=== PATIENT | male | born 1970 | race Caucasian/White ===

== ENCOUNTER 2020-02-19 09:15 | Emergency (ER) | payer OTHER, SELFPAY ==
[2020-02-19 09:20] VITALS: BP 146/77; PULSE 100; RESP 20; TEMP 36.6; O2SAT 99
--- NOTE | 2020-02-19 09:36 | WPDEDEXPGENP ---
HPI - General Ped General Chief complaint: Recheck/Abnormal Lab/Rx Stated complaint: Bactermia Time Seen by Provider: 02/19/20 09:36 Source: patient Mode of arrival: ambulatory Limitations: no limitations History of Present Illness HPI narrative: [age] year old man with a history of diabetes mellitus, liver failure, GI bleeds comes in today for IV antibiotics. Patient was admitted to a hospital in [facility] on Feb 13 for positive blood cultures and fever. Patient was treated in the hospital until yesterday when he was discharged. Patient is to have 2 g ceftriaxone IV daily for the next 28 days and his primary care physician is not available today (Thursday) to set up outpatient therapy. Patient states that he feels well, has a good appetite, denies fever, nausea, vomiting, weakness and shortness of breath. Onset (ago): day(s) Associated symptoms: denies other symptoms Related Data Home Medications Medication Instructions Recorded Confirmed Rocephin 2 g IV DAILY 02/19/20 02/19/20 acetaminophen-codeine 1 tablet Q8-10H PRN 02/19/20 02/19/20 albuterol sulfate 2 puff INHALATION Q8-10H PRN 02/19/20 02/19/20 cefdinir 300 mg PO BID 02/19/20 02/19/20 hydrochlorothiazide 25 mg PO DAILY 02/19/20 02/19/20 insulin regular hum U-500 conc 30 - 50 unit SUBCUT TIDWMEAL 02/19/20 02/19/20 [Humulin R U-500 (Conc) Kwikpen] lactulose [Enulose] 15 ml PO QID 02/19/20 02/19/20 Allergies Allergy/AdvReac Type Severity Reaction Status Date / Time aztreonam [Azactam] Allergy Intermediate Verified 10/07/19 10:29 ciprofloxacin [Cipro] Allergy Intermediate Verified 10/07/19 10:29 esomeprazole [Nexium] Allergy Intermediate Verified 10/07/19 10:29 octreotide Allergy Intermediate Verified 10/07/19 10:29 sulfanilamide Allergy Intermediate Verified 10/07/19 10:29 erythromycin base Allergy Unknown Unverified 10/07/19 10:29 Penicillins Allergy Unknown Unverified 10/07/19 10:29 Sulfa (Sulfonamide Allergy Unknown Unverified 10/07/19 10:29 Antibiotics) IVP dye Allergy Intermediate Uncoded 10/07/19 10:29 Contrast Media Allergy Unknown Uncoded 10/07/19 10:29 Pediatric Review of Systems : Constitutional: Denies fever and chills ENT: Denies sore throat and rhinorrhea Cardiovascular: Denies chest pain and dyspnea on exertion Respiratory: Denies cough and dyspnea Gastrointestinal: Denies abdominal pain, nausea and vomiting Genitourinary: Denies dysuria Integumentary: Denies rash and lesions Neurological: Denies weakness and difficulty walking Allergic/Immunologic: Denies facial swelling and urticaria PMFSH Past Medical History Medical History (Updated 02/19/20 @ 09:50 by Lukas Moreno MD) Chronic back pain Diabetes mellitus type 2 in obese GERD (gastroesophageal reflux disease) GI bleeding Hepatic encephalopathy Liver failure Varices, esophageal Surgical History Surgical History (Updated 02/19/20 @ 09:48 by Lukas Moreno MD) S/P TIPS (transjugular intrahepatic portosystemic shunt) Social History Social History (Updated 02/19/20 @ 09:48 by Lukas Moreno MD) Smoking status: Former smoker Alcohol intake: never Substance use: never Living arrangements: with family Pediatric Exam General: Limitations: no limitations General appearance: well-appearing and active Head: Head exam: normocephalic and atraumatic Eye: Eye exam: Present normal appearance, PERRL and EOMI ENT: ENT exam: normal oropharynx, mucous membranes moist, TM's normal bilaterally and normal external ear exam Respiratory: Respiratory exam: Present normal lung sounds bilaterally; Absent respiratory distress, wheezes and stridor Cardiovascular: Cardiovascular exam: Present regular rate, normal rhythm and normal heart sounds Extremities Exam: Extremities exam: Present normal inspection and full ROM; Absent tenderness and joint swelling Neurological Exam: Neurological exam: Present oriented X3, CN II-XII intact and normal
== END 2020-02-19 10:45 | disposition home or self-care (01) ==
PROVIDERS: Emergency Provider Emergency Medicine; PCP Physician Assistant
DX: R78.81 Bacteremia (principal)
CPT/HCPCS: 96365; 99282; 99284; J0696

== ENCOUNTER 2020-02-20 09:23 | Emergency (ER) | payer OTHER, SELFPAY ==
--- NOTE | 2020-02-20 09:31 | ED.RECABL ---
HPI - Recheck/Abnormal Lab/Rx General Chief Complaint: Recheck/Abnormal Lab/Rx Stated Complaint: INFECTION Time Seen by Provider: 02/20/20 09:32 Source: patient History of Present Illness HPI narrative: Patient was diagnosed at another facility with bacteremia. Suspected that he may have a vegetation on a heart valve. He had positive blood cultures x2. He was evaluated by Infectious Disease. It was advised that he get 2 g of Rocephin IV daily for 28 days. His insurance has not approved the standing order for daily antibiotics yet so he presents here for continued IV therapy. He has no other complaints. complaint: needs IV antibiotics Initial visit (ago): day(s) (3) Initial visit for: other (Bacteremia) Returns today for: needs IV antibiotics Symptoms since prior visit: no new symptoms Context: planned re-check Associated symptoms: none Related Data Home Medications Medication Instructions Recorded Confirmed Rocephin 2 g IV DAILY 02/19/20 02/19/20 acetaminophen-codeine 1 tablet Q8-10H PRN 02/19/20 02/19/20 albuterol sulfate 2 puff INHALATION Q8-10H PRN 02/19/20 02/19/20 cefdinir 300 mg PO BID 02/19/20 02/19/20 hydrochlorothiazide 25 mg PO DAILY 02/19/20 02/19/20 insulin regular hum U-500 conc 30 - 50 unit SUBCUT TIDWMEAL 02/19/20 02/19/20 [Humulin R U-500 (Conc) Kwikpen] lactulose [Enulose] 15 ml PO QID 02/19/20 02/19/20 Allergies Allergy/AdvReac Type Severity Reaction Status Date / Time aztreonam [Azactam] Allergy Intermediate Verified 10/07/19 10:29 ciprofloxacin [Cipro] Allergy Intermediate Verified 10/07/19 10:29 esomeprazole [Nexium] Allergy Intermediate Verified 10/07/19 10:29 octreotide Allergy Intermediate Verified 10/07/19 10:29 sulfanilamide Allergy Intermediate Verified 10/07/19 10:29 erythromycin base Allergy Unknown Unverified 10/07/19 10:29 Penicillins Allergy Unknown Unverified 10/07/19 10:29 Sulfa (Sulfonamide Allergy Unknown Unverified 10/07/19 10:29 Antibiotics) IVP dye Allergy Intermediate Uncoded 10/07/19 10:29 Contrast Media Allergy Unknown Uncoded 10/07/19 10:29 Review of Systems Review of Systems: All systems reviewed & are unremarkable except as noted in HPI and below PMFSH Past Medical History Medical History Chronic back pain Diabetes mellitus type 2 in obese GERD (gastroesophageal reflux disease) GI bleeding Hepatic encephalopathy Liver failure Varices, esophageal Surgical History Surgical History S/P TIPS (transjugular intrahepatic portosystemic shunt) Social History Social History Smoking status: Former smoker Alcohol intake: never Substance use: never Exam Const: General: healthy appearing, no acute distress and alert Nutritional Appearance: well nourished Orientation/consciousness: patient oriented x3 HENMT: Head: normal to inspection Ears: external ears normal Eyes: Conjunctivae: conjunctivae normal Pupils: Equal, round and reactive pupils present EOM: EOMs intact bilaterally Neck: Neck: normal visual inspection Resp: Effort & Inspection: normal respiratory effort Auscultation: clear to auscultation bilaterally Cardio: Rate: regular rate Rhythm: regular rhythm GI: GI Palp: Yes Soft to palpation and No Tenderness to palpation present (GI) Auscultation: normal bowel sounds Back/Spine/Pelvis: Cervical Spine: cervical ROM normal Thoracic/Lumbar Spine: thoraco-lumbar ROM normal Skin: General skin exam: normal color Rashes: no rashes Neuro: General: patient oriented x3, moves all extremities, no meningeal signs and no focal motor deficits Speech: normal speech Gait exam (Neuro): Normal gait present Extrem: General: normal to inspection and no clubbing, cyanosis or edema Psych: Appearance: grossly normal and well kempt Mental Status: mental status grossly normal Affect: no
[2020-02-20 09:40] VITALS: BP 176/94; PULSE 94; RESP 20; TEMP 36.2; O2SAT 98
== END 2020-02-20 10:42 | disposition home or self-care (01) ==
PROVIDERS: Emergency Provider Emergency Medicine; PCP Physician Assistant
DX: R78.81 Bacteremia (principal)
CPT/HCPCS: 96365; 99283; 99284; J0696

== ENCOUNTER 2020-02-20 10:53 | Outpatient (CLI) | payer OTHER, SELFPAY ==
[2020-02-20 11:07] LABS: Hematocrit 31.7 % (40.0-54.0); Hemoglobin 9.1 g/dL (14.0-18.0); Mean Corpuscular HGB Conc 28.7 g/dL (32.0-36.0); Mean Corpuscular Hemoglobin 21.7 pg (27.0-31.0); Mean Corpuscular Volume 75.7 fL (78.0-102.0); Mean Platelet Volume 10.9 fl (8.7-11.0); Platelet Count Result 79 K/mm3 (150-420); Red Blood Count 4.19 M/mm3 (4.70-6.10); Red Cell Distribution Width 16.4 % (11.6-14.4); White Blood Count 2.6 K/mm3 (4.8-10.8)
[2020-02-20 11:57] LABS: Band Neutrophils Percent 0 % (0-6); Basophils Percent Manual 0 % (0-1); Eosinophils Absolute Manual 0.07 K/mm3 (0.02-0.5); Eosinophils Percent Manual 3 % (1-6); Immature Platelet Fraction Pct 6.8 % (1.0-7.0); Lymphocytes Absolute Manual 0.36 K/mm3 (1.1-4.5); Lymphocytes Percent Manual 14 % (18-44); Monocytes Absolute Manual 0.26 K/mm3 (0.1-0.90); Monocytes Percent Manual 10 % (3-9); Neutrophils Absolute Manual 1.89 K/mm3 (1.3-6.7); Neutrophils Percent Manual 73 % (46-73); Total Cells Counted 100
[2020-02-20 11:58] LABS: Platelet Estimate Decreased (Adequate)
[2020-02-20 22:56] LABS: SARS-CoV-2 RNA PCR Negative
== END 2020-02-20 10:54 | disposition home or self-care (01) ==
LOC: CHSLAB 10:55
PROVIDERS: PCP Physician Assistant; Visit Provider Physician Assistant
DX: B34.9 Viral infection, unspecified (principal); Z20.828 Contact with and (suspected) exposure to other viral communicable diseases
CPT/HCPCS: 36415; 85025; 85055; 87635; C9803; U0003

== ENCOUNTER 2020-03-08 08:54 | Outpatient (RCR) | payer OTHER, SELFPAY ==
[2020-02-21 09:46] VITALS: BP 129/79; PULSE 68; RESP 16; TEMP 36.1; O2SAT 98
--- NOTE | 2020-02-21 10:27 | PC.NURSE ---
Patient here for daily Ceftriaxone 2 gm IVPB for next 26 days. Patient has PICC line in right upper. Education on medication and process of recurrent account and coming up here daily for. Patient has no concerns. Ceftriaxone administered. Tolerated well. Picc line flushed. Will return tomorrow for another dose. Safe exit of hospital.
--- NOTE | 2020-02-22 11:24 | PC.NURSE ---
Patient here for daily Ceftriaxone 2 gm IV infusion. No concerns voiced. Infusion administered over 30 minutes. In MAR looks like over 1 hour, but was administered over 30 minutes see OP Charges. PICC line asystomatic of s/sx of infection. Patent. Flush per protocol. Safe exit of hospital. Will return tomorrow.
[2020-02-23] MEDS: HEPARIN SOD FLUSH 500 UNITS/5 ML SYRINGE IV PUSH (09:55)
[2020-02-25 09:35] VITALS: BP 129/70; PULSE 80; RESP 16; TEMP 36.3; O2SAT 96
[2020-02-25] MEDS: HEPARIN SOD FLUSH 500 UNITS/5 ML SYRINGE IV PUSH (10:07)
--- NOTE | 2020-02-25 10:12 | PC.NURSE ---
Patient here for daily IV Cerftriaxone infusion. Picc line patent. No concerns voiced at this time. Antibiotic administered. Tolerated well. Safe exit of hospital. Will return tomorrow same time.
--- NOTE | 2020-02-26 09:36 | PC.NURSE ---
Patient here for daily Ceftriaxone IV infusion. No concerns. Picc line and cap dressing change completed. Antibiotic administered. Tolerated well. Safe exit of hospital.
[2020-02-26] MEDS: HEPARIN SOD FLUSH 500 UNITS/5 ML SYRINGE IV PUSH (09:53)
--- NOTE | 2020-02-27 09:46 | PC.NURSE ---
Patient here for daily IV Ceftriaxone. No concerns voiced. Ceftriaxone administered. Tolerated well. Safe exit of hospital.
[2020-02-27] MEDS: HEPARIN SOD FLUSH 500 UNITS/5 ML SYRINGE IV PUSH (09:51)
[2020-02-28] MEDS: HEPARIN SOD FLUSH 500 UNITS/5 ML SYRINGE IV PUSH (09:20)
[2020-02-29] MEDS: HEPARIN SOD FLUSH 500 UNITS/5 ML SYRINGE IV PUSH (09:40)
--- NOTE | 2020-02-29 10:49 | PC.NURSE ---
Patient tolerated daily IV Ceftriaxone infusion. No concerns. Safe exit of hospital.
[2020-03-01 09:18] VITALS: BP 130/72; PULSE 68; RESP 14; TEMP 36.6; O2SAT 97
--- NOTE | 2020-03-01 09:18 | PC.NURSE ---
Patient here for daily Ceftriaxone IV infusion. Picc line dressing change completed to right upper arm picc. Site asystomatic of s/sx of infection. IV antibiotic administered. Tolerating well. No concerns voiced. Safe exit of hospital. Be back tomorrow a.m.
[2020-03-01] MEDS: HEPARIN SOD FLUSH 500 UNITS/5 ML SYRINGE IV PUSH (09:37)
[2020-03-02] MEDS: HEPARIN SOD FLUSH 500 UNITS/5 ML SYRINGE IV PUSH (09:28)
--- NOTE | 2020-03-02 09:56 | PC.NURSE ---
Tolerated daily Ceftriaxone IV infusion well today. NO concerns voiced. Safe exit of hospital. Be back tomorrow a.m.
[2020-03-03] MEDS: HEPARIN SOD FLUSH 500 UNITS/5 ML SYRINGE IV PUSH (09:50)
[2020-03-04] MEDS: HEPARIN SOD FLUSH 500 UNITS/5 ML SYRINGE IV PUSH (09:40)
--- NOTE | 2020-03-04 10:24 | PC.NURSE ---
0930 upper edge of drg has a fluid filled blister. he claims claims in past has reaction to tape products. encouraged to leave alone. area is less pink around blister. no other irritation noted. c/o that drg will not always stay in place. sleeve given yesterday will not stay up. encouraged to careful. no further c/o. maybe see about knee high panty hose and cut toes out to help hold in place. will return in am.
[2020-03-05] MEDS: HEPARIN SOD FLUSH 500 UNITS/5 ML SYRINGE IV PUSH (09:16)
--- NOTE | 2020-03-05 10:00 | PC.NURSE ---
PICC line dressing changed on thursday by sister who is a hospice nurse, declined changing it today
[2020-03-06] MEDS: HEPARIN SOD FLUSH 500 UNITS/5 ML SYRINGE IV PUSH (09:08)
[2020-03-07 08:40] LABS: Hematocrit 33.9 % (40.0-54.0); Hemoglobin 9.9 g/dL (14.0-18.0); Mean Corpuscular HGB Conc 29.2 g/dL (32.0-36.0); Mean Corpuscular Hemoglobin 21.5 pg (27.0-31.0); Mean Corpuscular Volume 73.5 fL (78.0-102.0); Mean Platelet Volume 10.6 fl (8.7-11.0); Platelet Count Result 102 K/mm3 (150-420); Red Blood Count 4.61 M/mm3 (4.70-6.10); Red Cell Distribution Width 15.6 % (11.6-14.4); White Blood Count 3.3 K/mm3 (4.8-10.8)
[2020-03-07] MEDS: HEPARIN SOD FLUSH 500 UNITS/5 ML SYRINGE IV PUSH (08:54)
--- NOTE | 2020-03-07 08:54 | PC.NURSE ---
Pt. here for ATB infusion. PICC line site flushed well, has good blood return. Dresing clean, dry and intact. IV ATB started per order. Pt. resting in chair, denies any needs.
[2020-03-07 09:10] LABS: Neutrophils Percent Manual 71 % (46-73); Total Cells Counted 100
[2020-03-07 09:11] LABS: Band Neutrophils Percent 0 % (0-6); Basophils Percent Manual 0 % (0-1); Eosinophils Absolute Manual 0.09 K/mm3 (0.02-0.5); Eosinophils Percent Manual 3 % (1-6); Lymphocytes Absolute Manual 0.46 K/mm3 (1.1-4.5); Lymphocytes Percent Manual 14 % (18-44); Monocytes Absolute Manual 0.39 K/mm3 (0.1-0.90); Monocytes Percent Manual 12 % (3-9); Neutrophils Absolute Manual 2.34 K/mm3 (1.3-6.7); Platelet Estimate Decreased (Adequate)
--- NOTE | 2020-03-07 09:20 | PC.NURSE ---
Patient tolerated IV Infusion well. PICC line flushed well. Pt. left ambulatory. Denies any questions at discharge.
[2020-03-07 09:27] LABS: Alanine Aminotransferase 42 U/L (16-63); Albumin Level 3.8 g/dL (3.4-5.0); Alkaline Phosphatase 69 U/L (46-116); Anion Gap 11 mmol/L (8-16); Aspartate Amino Transferase 31 U/L (15-37); Bilirubin,Total 0.8 mg/dL (0.00-1.00); Blood Urea Nitrogen 12 mg/dL (7-18); Calcium 9.2 mg/dL (8.5-10.1); Carbon Dioxide 29 mmol/L (21-32); Chloride 99 mmol/L (98-108); Estimated Glomerular Filt Rate > 60; Glucose 177 mg/dL (70-99); Osmolality Calculated 291 mOsm/kg (285-295); Potassium 3.9 mmol/L (3.5-5.1); Sodium 139 mmol/L (136-145); Total Protein 7.9 g/dL (6.4-8.2)
--- NOTE | 2020-03-08 08:55 | PC.NURSE ---
Pt to room 229 amb per self. A&Ox3. Has no complaints. Oriented to room. Call ortiz in reach, reminded to call with needs.
[2020-03-08] MEDS: HEPARIN SOD FLUSH 500 UNITS/5 ML SYRINGE IV PUSH (09:40)
--- NOTE | 2020-03-08 09:56 | PC.NURSE ---
PICC line dressing changed per protocol. site without redness, edema or drainage. Pt tolerated well. Discharged to home amb per self.
--- NOTE | 2020-03-09 12:39 | PC.NURSE ---
Patient did not come in for IV therapy today, called patient and reports saw his doctor yesterday and they discontinued the IV therapy, pharmacy notified.
== END 2020-05-21 23:59 | disposition home or self-care (01) ==
LOC: CHSTREATRM 08:54
PROVIDERS: PCP Physician Assistant; Visit Provider Physician Assistant
DX: R78.81 Bacteremia (principal)
CPT/HCPCS: 36415; 80053; 85025; 96365; J0696

== ENCOUNTER 2020-03-12 13:11 | Outpatient (CLI) | payer OTHER, SELFPAY | END 2020-03-12 13:12 | disposition home or self-care (01) | LOC: CHSTREATRM 13:16 | PROVIDERS: PCP Physician Assistant; Visit Provider Physician Assistant | DX: Z45.2 Encounter for adjustment and management of vascular access device (principal) | CPT/HCPCS: 99211; G0463 ==

== ENCOUNTER 2020-03-13 01:02 | Emergency (ER) | payer OTHER, SELFPAY ==
[2020-03-13 01:05] VITALS: BP 161/79; PULSE 103; RESP 20; TEMP 36.8; O2SAT 99
--- NOTE | 2020-03-13 01:13 | ED.GENADULT ---
HPI - General Adult General Chief complaint: Recheck/Abnormal Lab/Rx Stated complaint: Elevated Glucose Source: patient and RN notes reviewed Mode of arrival: ambulatory Limitations: no limitations History of Present Illness HPI narrative: patient began having frequent urination agitation. She decided to check his blood sugar and his machine just showed high . complaint: elevated blood sugar Onset (ago): hour(s) (2) Severity: severe Relieving factors: none Exacerbating factors: eating Associated symptoms: denies other symptoms Treatments prior to arrival: none Related Data Home Medications Medication Instructions Recorded Confirmed acetaminophen-codeine 1 tablet Q8-10H PRN 02/19/20 03/13/20 albuterol sulfate 2 puff INHALATION Q8-10H PRN 02/19/20 03/13/20 hydrochlorothiazide 25 mg PO DAILY 02/19/20 03/13/20 insulin regular hum U-500 conc 100 - 200 unit SUBCUT TIDWMEAL 02/19/20 02/19/20 [Humulin R U-500 (Conc) Kwikpen] Allergies Allergy/AdvReac Type Severity Reaction Status Date / Time aztreonam [Azactam] Allergy Intermediate Verified 10/07/19 10:29 ciprofloxacin [Cipro] Allergy Intermediate Verified 10/07/19 10:29 esomeprazole [Nexium] Allergy Intermediate Verified 10/07/19 10:29 octreotide Allergy Intermediate Verified 10/07/19 10:29 sulfanilamide Allergy Intermediate Verified 10/07/19 10:29 erythromycin base Allergy Unknown Unverified 10/07/19 10:29 Penicillins Allergy Unknown Unverified 10/07/19 10:29 Sulfa (Sulfonamide Allergy Unknown Unverified 10/07/19 10:29 Antibiotics) IVP dye Allergy Intermediate Uncoded 10/07/19 10:29 Contrast Media Allergy Unknown Uncoded 10/07/19 10:29 Review of Systems Review of Systems: All systems reviewed & are unremarkable except as noted in HPI and below PMFSH Past Medical History Medical History Chronic back pain Diabetes mellitus type 2 in obese GERD (gastroesophageal reflux disease) GI bleeding Hepatic encephalopathy Liver failure Varices, esophageal Surgical History Surgical History S/P TIPS (transjugular intrahepatic portosystemic shunt) Social History Social History Smoking status: Former smoker Alcohol intake: never Substance use: never Exam Const: General: healthy appearing and no acute distress Nutritional Appearance: well nourished and obese centrally obese Orientation/consciousness: patient oriented x3 HENMT: Head: normal to inspection Ears: external ears normal Eyes: Conjunctivae: conjunctivae normal Pupils: Equal, round and reactive pupils present EOM: EOMs intact bilaterally Neck: Neck: normal visual inspection Resp: Effort & Inspection: normal respiratory effort Auscultation: clear to auscultation bilaterally Cardio: Rate: regular rate Rhythm: regular rhythm GI: GI Palp: Yes Soft to palpation and No Tenderness to palpation present (GI) Auscultation: normal bowel sounds Back/Spine/Pelvis: Cervical Spine: cervical ROM normal Thoracic/Lumbar Spine: thoraco-lumbar ROM normal Skin: General skin exam: normal color Rashes: no rashes Neuro: General: patient oriented x3, moves all extremities and no focal motor deficits Speech: normal speech Gait exam (Neuro): Normal gait present Extrem: General: normal to inspection and no clubbing, cyanosis or edema Psych: Appearance: grossly normal and well kempt Mental Status: mental status grossly normal Affect: normal affect Attitude: cooperative Thought content: Yes Normal thought content present Course Course Emergency Course: patient feels much better after 20 units of regular insulin. He says his shaking has stopped and he feels content that his blood sugars down 402. Vital Signs Vital signs: Vital Signs Temperature 36.8 C 03/13/20 01:05 Pulse Rate 103 H 03/13/20 01:05 Respiratory Rate 20 03/13/20
[2020-03-13] MEDS: INSULIN HUMAN REGULAR (*BKC) 100 UNITS/ML 20 UNITS SUB-Q (01:26)
[2020-03-13 02:04] LABS: Glucose Point of Care > 450 (65-105)
[2020-03-13 02:32] LABS: Glucose Point of Care > 450 (65-105)
--- NOTE | 2020-03-13 02:32 | PC.NURSE ---
pt ambulated to bathroom, no complaints voiced at this time.
[2020-03-13 03:04] LABS: Glucose Point of Care 430 (65-105)
--- NOTE | 2020-03-13 03:26 | PC.NURSE ---
pt feeling alot better, pt states ready to go home. no shaking, no agitation. ready to go to bed.
[2020-03-13 03:27] VITALS: BP 161/71; PULSE 78; RESP 20; TEMP 36.8; O2SAT 98
[2020-03-13 03:27] LABS: Glucose Point of Care 402 (65-105)
== END 2020-03-13 03:30 | disposition home or self-care (01) ==
PROVIDERS: Emergency Provider Emergency Medicine; PCP Physician Assistant
DX: E11.65 Type 2 diabetes mellitus with hyperglycemia (principal)
CPT/HCPCS: 82948; 99282; 99283; J1815

== ENCOUNTER 2020-05-29 07:34 | Outpatient (CLI) | payer OTHER, SELFPAY ==
--- NOTE | ~2020-05-29 | CT_ITS ---
EXAMINATION: CT abdomen wo con DATE: 05/29/2020 08:49 INDICATION: Disorder of kidney and/or ureter. Right lower quadrant pain. TECHNIQUE: Computed tomography (CT) of the abdomen was performed without intravenous contrast. Automa manny exposure control and iterative reconstruction technique were employed. The dose-length product wa s 1608.08 mGy-cm. COMPARISON: 08/18/2018 FINDINGS: Mild atelectasis at the lingula and left lower lobe. Heart size is normal. No pericardial or pleural effusion. Mild bilateral gynecomastia. TIPS shunt in expected position. Liver is otherwise unremarkab le. Splenomegaly measuring 18.9 cm craniocaudally and paraesophageal varices consistent with portal v enous hypertension. A few splenic calcifications consistent with old granulomatous disease. A few tin y calcified gallstones at the dependent neck of the otherwise normal-appearing gallbladder with no ga llbladder wall thickening or pericholecystic inflammatory change to suggest acute cholecystitis. Panc reas, left kidney and bilateral adrenal glands are normal. A couple cysts in the right pelvic kidney the larger measuring 2 cm. The right kidney measures 11.4 cm in maximal length compared with 15.2 cm the left kidney. No urolithiasis or hydronephrosis on either the left or right. Bowels including appe ndix are normal. Bladder is normal. Right seminal vesicle is atrophic versus developmentally absent. No free intraperitoneal gas or fluid. No pathologically enlarged abdominal or pelvic lymphadenopathy. Mild scattered degenerative skeletal changes. There are bridging osteophytes at several levels in th e lower thoracic spine. IMPRESSION: 1. No acute intra-abdominal/pelvic process. Specifically normal appendix and no urolithiasis. 2. Cholelithiasis. 3. TIPS procedure with likely and paraesophageal varices suggesting portal venous hypertension. 4. Unchanged right-sided pelvic kidney which is slightly smaller than the left kidney. Reviewed, dictated and finalized at location B. GER APPOINTMENT IMPRESSION: 1. No acute intra-abdominal/pelvic process. Specifically normal appendix and no urolithiasis. 2. Cholelithiasis. 3. TIPS procedure with likely and paraesophageal varices suggesting portal veno us hypertension. 4. Unchanged right-sided pelvic kidney which is slightly smaller than the left kidney.
== END 2020-05-29 07:35 | disposition home or self-care (01) ==
LOC: CHSIMG 07:38
PROVIDERS: PCP Physician Assistant; Visit Provider Physician Assistant
DX: N28.89 Other specified disorders of kidney and ureter (principal)
CPT/HCPCS: 74150

== ENCOUNTER 2020-09-02 06:35 | Emergency (ER) | payer OTHER, SELFPAY ==
[2020-09-02 06:45] VITALS: BP 140/79; PULSE 105; RESP 20; TEMP 36.5; O2SAT 98
--- NOTE | 2020-09-02 07:10 | ED.MALEGU ---
HPI - Male Genitourinary General Chief complaint: Urogenital-Male Stated complaint: Lump Time Seen by Provider: 09/02/20 07:10 Source: patient Mode of arrival: ambulatory Limitations: no limitations History of Present Illness HPI Narrative: 49-year-old man with a history of type 2 diabetes comes in today complaining of a painful lesion on his right groin. Patient states he 1st noticed it yesterday and it looked like a small pimple. This morning it is a bigger and more tender. He has had no fever, nausea, vomiting or prior bacterial skin infections. he has certainly has an allergy to sulfa antibiotics but is not sure what sort of reaction. MD Complaint: other (Lump in groin) Onset (ago): day(s) (1) Duration: constant Location: right inguinal region Severity: mild Quality: sharp Relieving factors: none Exacerbating factors: palpation Associated symptoms: Reports denies other symptoms Related Data Home Medications Medication Instructions Recorded Confirmed acetaminophen-codeine 1 tablet Q8-10H PRN 02/19/20 09/02/20 albuterol sulfate 2 puff INHALATION Q8-10H PRN 02/19/20 09/02/20 hydrochlorothiazide 25 mg PO DAILY 02/19/20 09/02/20 insulin regular hum U-500 conc 100 - 200 unit SUBCUT TIDWMEAL 02/19/20 09/02/20 [Humulin R U-500 (Conc) Kwikpen] Allergies Allergy/AdvReac Type Severity Reaction Status Date / Time aztreonam [Azactam] Allergy Intermediate Verified 10/07/19 10:29 ciprofloxacin [Cipro] Allergy Intermediate Verified 10/07/19 10:29 esomeprazole [Nexium] Allergy Intermediate Verified 10/07/19 10:29 octreotide Allergy Intermediate Verified 10/07/19 10:29 sulfanilamide Allergy Intermediate Verified 10/07/19 10:29 erythromycin base Allergy Unknown Unverified 10/07/19 10:29 Penicillins Allergy Unknown Unverified 10/07/19 10:29 Sulfa (Sulfonamide Allergy Unknown Unverified 10/07/19 10:29 Antibiotics) IVP dye Allergy Intermediate Uncoded 10/07/19 10:29 Contrast Media Allergy Unknown Uncoded 10/07/19 10:29 Review of Systems Constitutional: Constitutional: Denies chills and Denies fever(s) Cardiovascular: Cardiovascular: Denies chest pain and Denies radiating jaw, neck or arm pain Respiratory: Respiratory: Denies cough and Denies dyspnea Gastrointestinal: Gastrointestinal: Denies abdominal pain, Denies nausea and Denies vomiting Genitourinary: Genitourinary: Reports as per HPI, Denies hematuria, Reports genital lesions, Denies dysuria and Denies urinary frequency Musculoskeletal: Musculoskeletal: Denies arthralgias and Denies joint swelling Integumentary/Breasts: Skin/Breast: Reports as per HPI, Denies pruritus, Reports erythema and Denies rash Neurologic: Denies vertigo, Denies dizziness and Denies syncope Hematologic/Lymphatic: Hematologic/Lymphatic: Denies easy bleeding and Denies easy bruising Allergic/Immunologic: Allergic/Immunologic: Denies lip swelling and Denies tongue swelling PMFSH Past Medical History Medical History Chronic back pain Diabetes mellitus type 2 in obese GERD (gastroesophageal reflux disease) GI bleeding Hepatic encephalopathy Liver failure Varices, esophageal Surgical History Surgical History S/P TIPS (transjugular intrahepatic portosystemic shunt) Social History Social History Smoking status: Former smoker Alcohol intake: never Substance use: never Exam Const: General: healthy appearing, no acute distress and alert Orientation/consciousness: patient oriented x3 Eyes: Conjunctivae: conjunctivae normal Pupils: Equal, round and reactive pupils present EOM: EOMs intact bilaterally Resp: Effort & Inspection: normal respiratory effort and not labored Auscultation: clear to auscultation bilaterally, no rales, no rhonchi and no wheezes Cardio: Rate: regular rate Rhythm: regular rhythm
[2020-09-02 07:26] VITALS: BP 140/76; PULSE 104; RESP 20; TEMP 36.7; O2SAT 97
== END 2020-09-02 07:27 | disposition home or self-care (01) ==
PROVIDERS: Emergency Provider Emergency Medicine; PCP Physician Assistant
DX: L02.91 Cutaneous abscess, unspecified (principal)
CPT/HCPCS: 99282; 99283; A9270

== ENCOUNTER 2020-09-02 21:49 | Emergency (ER) | payer OTHER, SELFPAY ==
--- NOTE | 2020-09-02 21:55 | ED.MALEGU ---
HPI - Male Genitourinary General Chief complaint: Urogenital-Male Stated complaint: ABCESS Time Seen by Provider: 09/02/20 22:01 Source: patient and family Mode of arrival: ambulatory Limitations: no limitations History of Present Illness HPI Narrative: 49-year-old man who was seen this morning with a right groin subcutaneous abscess comes in today complaining of increasing pain especially with walking. Patient states that he was taking Tylenol with codeine but that was on adequate to control his pain. He has had no fever, nausea, vomiting, dysuria or testicular pain. He states this started yesterday with a pimple. He did not attempt to pop her drain it himself. MD Complaint: other ( Groin pain and swelling) Onset (ago): day(s) (1) Duration: constant Location: right inguinal region Quality: sharp Exacerbating factors: palpation and other ( walking) Associated symptoms: Reports denies other symptoms Related Data Sexually active: Yes Home Medications Medication Instructions Recorded Confirmed acetaminophen-codeine 1 tablet Q8-10H PRN 02/19/20 09/02/20 albuterol sulfate 2 puff INHALATION Q8-10H PRN 02/19/20 09/02/20 hydrochlorothiazide 25 mg PO DAILY 02/19/20 09/02/20 insulin regular hum U-500 conc 100 - 200 unit SUBCUT TIDWMEAL 02/19/20 09/02/20 [Humulin R U-500 (Conc) Kwikpen] Allergies Allergy/AdvReac Type Severity Reaction Status Date / Time aztreonam [Azactam] Allergy Intermediate Verified 10/07/19 10:29 ciprofloxacin [Cipro] Allergy Intermediate Verified 10/07/19 10:29 esomeprazole [Nexium] Allergy Intermediate Verified 10/07/19 10:29 octreotide Allergy Intermediate Verified 10/07/19 10:29 sulfanilamide Allergy Intermediate Verified 10/07/19 10:29 erythromycin base Allergy Unknown Unverified 10/07/19 10:29 Penicillins Allergy Unknown Unverified 10/07/19 10:29 Sulfa (Sulfonamide Allergy Unknown Unverified 10/07/19 10:29 Antibiotics) IVP dye Allergy Intermediate Uncoded 10/07/19 10:29 Contrast Media Allergy Unknown Uncoded 10/07/19 10:29 Review of Systems Constitutional: Constitutional: Denies chills and Denies fever(s) Cardiovascular: Cardiovascular: Denies chest pain and Denies radiating jaw, neck or arm pain Respiratory: Respiratory: Denies cough and Denies dyspnea Gastrointestinal: Gastrointestinal: Denies abdominal pain, Denies nausea and Denies vomiting Genitourinary: Genitourinary: Denies hematuria, Denies dysuria and Denies urinary frequency Musculoskeletal: Musculoskeletal: Denies arthralgias and Denies joint swelling Integumentary/Breasts: Skin/Breast: Denies pruritus, Denies erythema and Denies rash Neurologic: Denies vertigo, Denies dizziness and Denies syncope Hematologic/Lymphatic: Hematologic/Lymphatic: Denies easy bleeding and Denies easy bruising PMFSH Past Medical History Medical History Chronic back pain Diabetes mellitus type 2 in obese GERD (gastroesophageal reflux disease) GI bleeding Hepatic encephalopathy Liver failure Varices, esophageal Surgical History Surgical History S/P TIPS (transjugular intrahepatic portosystemic shunt) Social History Social History Smoking status: Former smoker Alcohol intake: never Substance use: never Exam Const: General: alert Orientation/consciousness: patient oriented x3 Other: moderate acute distress per Eyes: Conjunctivae: conjunctivae normal Pupils: Equal, round and reactive pupils present EOM: EOMs intact bilaterally GI: Inspection: distended GI Palp: Yes Soft to palpation and No Tenderness to palpation present (GI) : Male General Exam: No Genital lesions present Scrotum: scrotum normal Testes: epididymides normal, no testicular swelling and no testicular tenderness Other: 2 cm diameter firm subcutaneous tender mass with mild overlyi
[2020-09-02 22:00] VITALS: BP 149/84; PULSE 127; RESP 18; TEMP 36.9; O2SAT 97
[2020-09-02] MEDS: HYDROcodone/acetaminophen (*CRX) 5-325 MG TABLET 1 TAB PO (22:08)
== END 2020-09-02 22:17 | disposition home or self-care (01) ==
PROVIDERS: Emergency Provider Emergency Medicine; PCP Physician Assistant
DX: L02.91 Cutaneous abscess, unspecified (principal)
CPT/HCPCS: 99282; 99283; A9270

== ENCOUNTER 2020-09-03 09:25 | Outpatient (CLI) | payer OTHER, SELFPAY ==
--- NOTE | ~2020-09-03 | US_ITS ---
EXAMINATION: US soft tissue groin RT DATE: 09/03/2020 12:01 INDICATION: Cutaneous abscess. TECHNIQUE: Multiple grayscale and Doppler ultrasound images of the abdomen were obtained. COMPARISON: None FINDINGS: There is a 9 x 8 x 9 mm hypoechoic region with irregular margins in the relatively superficial subder mal soft tissues at the region of concern. There is posterior acoustic enhancement suggesting this re presents a complex fluid collection. No well-defined organized peripheral wall. There is some surroun ding hyperemia on color Doppler consistent with an inflammatory etiology. The fluid collection extend s to within 1 mm of the skin surface. IMPRESSION: 1. 9 x 8 x 9 mm relatively superficial subdermal complex fluid collection at the region of concern li sherrell representing a region of phlegmonous change transitioning to early abscess. Reviewed, dictated and finalized at location A. IMPRESSION: 1. 9 x 8 x 9 mm relatively superficial subdermal complex fluid collection at th e region of concern likely representing a region of phlegmonous change transiti oning to early abscess.
== END 2020-09-03 09:26 | disposition home or self-care (01) ==
LOC: CHSIMG 09:26
PROVIDERS: PCP Physician Assistant; Visit Provider Emergency Medicine
DX: L02.91 Cutaneous abscess, unspecified (principal)
CPT/HCPCS: 76882

== ENCOUNTER 2020-09-04 04:13 | Emergency (ER) | payer OTHER, SELFPAY ==
[2020-09-04 04:20] VITALS: BP 152/81; PULSE 108; RESP 20; TEMP 36.6; O2SAT 99
--- NOTE | 2020-09-04 04:42 | ED.WOUNDLAC ---
HPI - Wound/Laceration General Chief Complaint: Wound/Laceration Stated Complaint: absece Source: patient and RN notes reviewed Limitations: no limitations History of Present Illness HPI narrative: patient was here 2 days ago for same abscess. Was put on antibiotics and at the 2nd visit some pain medications. He had ultrasound done which showed early forming abscess. Today it started draining with some blood on the washcloth. Patient became concerned and came in for further evaluation. Denies any fever chills. Onset (ago): day(s) (3) Location: genitals ( right groin) Place: home Related Data Home Medications Medication Instructions Recorded Confirmed acetaminophen-codeine 1 tablet Q8-10H PRN 02/19/20 09/04/20 albuterol sulfate 2 puff INHALATION Q8-10H PRN 02/19/20 09/04/20 hydrochlorothiazide 25 mg PO DAILY 02/19/20 09/04/20 insulin regular hum U-500 conc 100 - 200 unit SUBCUT TIDWMEAL 02/19/20 09/04/20 [Humulin R U-500 (Conc) Kwikpen] alprazolam 1 mg PO PRN PRN 09/04/20 09/04/20 lactulose 20 g PO QID 09/04/20 09/04/20 ondansetron HCl 4 mg PO PRN PRN 09/04/20 09/04/20 rifaximin [Xifaxan] 550 mg PO BID 09/04/20 09/04/20 tramadol 50 mg PO Q6H PRN 09/04/20 09/04/20 Allergies Allergy/AdvReac Type Severity Reaction Status Date / Time aztreonam [Azactam] Allergy Intermediate Verified 10/07/19 10:29 ciprofloxacin [Cipro] Allergy Intermediate Verified 10/07/19 10:29 esomeprazole [Nexium] Allergy Intermediate Verified 10/07/19 10:29 octreotide Allergy Intermediate Verified 10/07/19 10:29 sulfanilamide Allergy Intermediate Verified 10/07/19 10:29 erythromycin base Allergy Unknown Unverified 10/07/19 10:29 Penicillins Allergy Unknown Unverified 10/07/19 10:29 Sulfa (Sulfonamide Allergy Unknown Unverified 10/07/19 10:29 Antibiotics) IVP dye Allergy Intermediate Uncoded 10/07/19 10:29 Contrast Media Allergy Unknown Uncoded 10/07/19 10:29 Review of Systems Review of Systems: All systems reviewed & are unremarkable except as noted in HPI and below PMFSH Past Medical History Medical History Chronic back pain Diabetes mellitus type 2 in obese GERD (gastroesophageal reflux disease) GI bleeding Hepatic encephalopathy Liver failure Varices, esophageal Surgical History Surgical History S/P TIPS (transjugular intrahepatic portosystemic shunt) Social History Social History Smoking status: Former smoker Alcohol intake: never Substance use: never Exam Const: General: healthy appearing and no acute distress Nutritional Appearance: well nourished and obese morbidly obese Orientation/consciousness: patient oriented x3 HENMT: Head: normal to inspection Ears: external ears normal Eyes: Conjunctivae: conjunctivae normal Pupils: Equal, round and reactive pupils present EOM: EOMs intact bilaterally Neck: Neck: normal visual inspection Resp: Effort & Inspection: normal respiratory effort Auscultation: clear to auscultation bilaterally Cardio: Rate: regular rate Rhythm: regular rhythm GI: GI Palp: Yes Soft to palpation and No Tenderness to palpation present (GI) Auscultation: normal bowel sounds Back/Spine/Pelvis: Cervical Spine: cervical ROM normal Thoracic/Lumbar Spine: thoraco-lumbar ROM normal Skin: General skin exam: fluctuance Other: Abscess right groin is draining sanguinous dark fluid otherwise appears as previous descriptions. Neuro: General: patient oriented x3, moves all extremities and no focal motor deficits Speech: normal speech Gait exam (Neuro): Normal gait present Extrem: General: normal to inspection Psych: Appearance: grossly normal and well kempt Mental Status: mental status grossly normal Affect: normal affect Attitude: cooperative Thought content: Yes Normal thought content present Course Vital Signs Vit
[2020-09-04] MEDS: ONDANSETRON HCL ODT 4 MG TABLET PO (04:56)
[2020-09-04 04:58] VITALS: BP 150/83; PULSE 100; RESP 20; O2SAT 99
== END 2020-09-04 05:01 | disposition home or self-care (01) ==
PROVIDERS: Emergency Provider Emergency Medicine; PCP Physician Assistant
DX: L02.214 Cutaneous abscess of groin (principal); M54.9 Dorsalgia, unspecified; E11.9 Type 2 diabetes mellitus without complications; K21.9 Gastro-esophageal reflux disease without esophagitis; K72.90 Hepatic failure, unspecified without coma; I85.00 Esophageal varices without bleeding; Z87.891 Personal history of nicotine dependence
CPT/HCPCS: 99283; A9270

== ENCOUNTER 2020-11-08 22:18 | Emergency (ER) | payer OTHER, SELFPAY ==
--- NOTE | ~2020-11-08 | CT_ITS ---
EXAMINATION: CT abdomen pelvis wo con DATE: 11/08/2020 23:12 INDICATION: Abdominal and flank pain TECHNIQUE: Computed tomography (CT) of the abdomen and pelvis was performed without intravenous contr ast. The dose-length product was 1393.43 mGy-cm. Automated exposure control and iterative reconstruct ion technique were employed. COMPARISON: CT dated 05/29/2020 FINDINGS: Left lower lobe atelectasis. No significant pleural or pericardial effusion. There are santos ges of TIPS procedure. Splenomegaly. There is mild mesenteric lymphadenopathy. There is cholelithiasi s. Right pelvic kidney is present. No obstructing stone or hydronephrosis. Nonobstructive bowel gas p attern. No significant vascular abnormality. Diverticulosis of the colon without evidence for diverti culitis. Normal appendix. There are paraesophageal varices, consistent with portal hypertension. IMPRESSION: 1. TIPS procedure with evidence for portal hypertension and splenomegaly. 2: Mild mesenteric lymphadenopathy, likely reactive. 3: No acute abnormality of the abdomen or pelvis. Reviewed, dictated and finalized at location A.
[2020-11-08 22:25] VITALS: BP 151/81; PULSE 105; RESP 18; TEMP 36.6; O2SAT 97
--- NOTE | 2020-11-08 22:40 | ECG_ITS ---
Measurements Intervals [place] Rate: 97 P: 59 NM: 154 QRS: 18 QRSD: 91 T: 32 QT: 346 QTc: 441 Interpretive Statements SINUS RHYTHM NONSPECIFIC T-WAVE ABNORMALITY- INFERIOR LEADS BORDERLINE ECG Electronically Signed On 11-09-2020 6:29:53 CDT by David Polo D.O.
[2020-11-08] MEDS: KETOROLAC 30 MG/ML VIAL (*BKC) IV PUSH (22:56)
[2020-11-08] MEDS: SODIUM CHLORIDE 0.9% IV 1,000 ML 999 ML IV CONT (22:57)
[2020-11-08 23:04] LABS: Hematocrit 31.8 % (40.0-54.0); Immature Platelet Fraction Pct 3.4 % (1.0-7.0); Mean Corpuscular HGB Conc 28.3 g/dL (32.0-36.0); Mean Corpuscular Hemoglobin 20.2 pg (27.0-31.0); Mean Corpuscular Volume 71.5 fL (78.0-102.0); Mean Platelet Volume 11.2 fl (8.7-11.0); Platelet Count Result 83 K/mm3 (150-420); Red Blood Count 4.45 M/mm3 (4.70-6.10); Red Cell Distribution Width 18.1 % (11.6-14.4); White Blood Count 2.7 K/mm3 (4.8-10.8)
[2020-11-08 23:09] LABS: Add Urine Microscopic? YES; Appearance Urine Clear (Clear); Bilirubin Urine Negative (Negative); Blood Urine Negative (Negative); Color Urine Yellow (Yellow); Glucose Urine UA 1+ (Negative); Ketones Urine Trace (Negative); Leukocyte Esterase Ur Negative (Negative); Nitrate Urine Negative (Negative); Protein Urine Trace (Negative); Specific Grav Ur 1.025 (1.010-1.020)
[2020-11-08 23:13] LABS: Bacteria Urine Trace /hpf; Mucus Urine Rare /lpf; RBC Urine 0-2 /hpf (0-2); Squamous Epithelial Cell Urine None seen /hpf (Few); WBC Urine 0-3 /hpf (0-3)
[2020-11-08 23:17] LABS: INR 1.1; Partial Thromboplastin Time 24.2 SEC (23.90-30.70); Prothrombin Time 11.5 Seconds (9.50-12.10)
[2020-11-08 23:20] LABS: Band Neutrophils Percent 0 % (0-6); Basophils Absolute Manual 0.02 K/mm3 (0-0.1); Basophils Percent Manual 1 % (0-1); Eosinophils Absolute Manual 0.02 K/mm3 (0.02-0.5); Eosinophils Percent Manual 1 % (1-6); Lymphocytes Absolute Manual 0.32 K/mm3 (1.1-4.5); Lymphocytes Percent Manual 12 % (18-44); Monocytes Absolute Manual 0.18 K/mm3 (0.1-0.90); Monocytes Percent Manual 7 % (3-9); Neutrophils Absolute Manual 2.13 K/mm3 (1.3-6.7); Neutrophils Percent Manual 79 % (46-73); Platelet Estimate Decreased (Adequate)
[2020-11-08 23:21] LABS: Alanine Aminotransferase 67 U/L (16-63); Albumin Level 3.4 g/dL (3.4-5.0); Alkaline Phosphatase 71 U/L (46-116); Anion Gap 13 mmol/L (8-16); Aspartate Amino Transferase 64 U/L (15-37); Blood Urea Nitrogen 15 mg/dL (7-18); Calcium 8.2 mg/dL (8.5-10.1); Carbon Dioxide 27 mmol/L (21-32); Chloride 101 mmol/L (98-108); Estimated CRCL calculation 89 ml/min; Estimated Glomerular Filt Rate > 60; Glucose 325 mg/dL (70-99); Lactic Acid Reflex 2.6 mmol/L (0.4-2.0); Lipase 86 U/L (73-393); Osmolality Calculated 305 mOsm/kg (285-295); Potassium 3.6 mmol/L (3.5-5.1); Sodium 141 mmol/L (136-145); Total Protein 6.5 g/dL (6.4-8.2); Troponin I 5.4 ng/L (0.00-60.4)
--- NOTE | 2020-11-08 23:26 | ED.ABDPAIN ---
HPI - Abdominal Pain General Chief Complaint: Abdominal Pain Stated Complaint: R side pain Source: patient and family Mode of arrival: ambulatory Limitations: no limitations History of Present Illness HPI narrative: this is a 50-year-old gentleman that presents with some right flank pain and lower back pain radiating into his right groin, there is no hematuria no dysuria no fever or chills no history of kidney stones has a history of a tips procedure, currently no chest pain or shortness of breath. There is no nausea vomiting no diarrhea constipation. MD elicited complaint: flank pain Pertinent past history: none Onset (ago): day(s) Pain Consistency: intermittent Location: R flank Severity: moderate Pain scale (0-10): 6 Quality: aching Related Data Home Medications Medication Instructions Recorded Confirmed acetaminophen-codeine 1 tablet Q8-10H PRN 02/19/20 11/08/20 albuterol sulfate 2 puff INHALATION Q8-10H PRN 02/19/20 11/08/20 hydrochlorothiazide 25 mg PO DAILY 02/19/20 11/08/20 insulin regular hum U-500 conc 100 - 200 unit SUBCUT TIDWMEAL 02/19/20 11/08/20 [Humulin R U-500 (Conc) Kwikpen] alprazolam 0.5 mg PO PRN PRN 09/04/20 11/08/20 lactulose 20 g PO QID 09/04/20 11/08/20 ondansetron HCl 4 mg PO PRN PRN 09/04/20 11/08/20 rifaximin [Xifaxan] 550 mg PO BID 09/04/20 11/08/20 tramadol 50 mg PO Q6H PRN 09/04/20 11/08/20 Allergies Allergy/AdvReac Type Severity Reaction Status Date / Time aztreonam [Azactam] Allergy Intermediate Unknown Verified 11/08/20 22:52 ciprofloxacin [Cipro] Allergy Intermediate Unknown Verified 11/08/20 22:52 esomeprazole [Nexium] Allergy Intermediate Unknown Verified 11/08/20 22:52 octreotide Allergy Intermediate Unknown Verified 11/08/20 22:52 sulfanilamide Allergy Intermediate Unknown Verified 11/08/20 22:52 erythromycin base Allergy Unknown Unknown Verified 11/08/20 22:52 Penicillins Allergy Unknown Unknown Verified 11/08/20 22:52 Sulfa (Sulfonamide Allergy Unknown Unknown Verified 11/08/20 22:52 Antibiotics) IVP dye Allergy Intermediate Unknown Uncoded 11/08/20 22:52 Contrast Media Allergy Unknown Unknown Uncoded 11/08/20 22:52 Review of Systems Review of Systems: All systems reviewed & are unremarkable except as noted in HPI and below PMFSH Past Medical History Medical History Chronic back pain Diabetes mellitus type 2 in obese GERD (gastroesophageal reflux disease) GI bleeding Hepatic encephalopathy Liver failure Varices, esophageal Surgical History Surgical History S/P TIPS (transjugular intrahepatic portosystemic shunt) Social History Social History Smoking status: Former smoker Alcohol intake: never Substance use: never Exam Const: General: no acute distress and alert Orientation/consciousness: patient oriented x3 HENMT: Head: normal to inspection Eyes: Conjunctivae: conjunctivae normal Pupils: Equal, round and reactive pupils present EOM: EOMs intact bilaterally Direct Ophthalmoscopy: no photophobia Neck: Neck: normal visual inspection, no lymphadenopathy and no meningeal signs Chest: Chest palpation & inspection: normal inspection of the chest Resp: Effort & Inspection: normal respiratory effort Auscultation: clear to auscultation bilaterally Cardio: Rate: regular rate GI: GI Palp: Yes Soft to palpation Percussion: Yes normal to percussion : Testes: Testes normal Urinary Catheter: Urinary Catheter: patent and draining Back/Spine/Pelvis: Back: no CVA tenderness Skin: General skin exam: normal color Rashes: no rashes Neuro: General: patient oriented x3 and moves all extremities Extrem: General: normal to inspection Psych: Appearance: grossly normal Mental Status: mental status grossly normal Affect: normal affect Course Course Emergency Course: Patient hillary
[2020-11-08 23:32] VITALS: BP 145/88; PULSE 100; RESP 18; O2SAT 97
== END 2020-11-08 23:37 | disposition home or self-care (01) ==
PROVIDERS: Emergency Provider Emergency Medicine; PCP Physician Assistant
DX: M54.5 Low back pain (principal)
CPT/HCPCS: 36415; 74176; 80053; 81001; 83605; 83690; 84484; 85025; 85055; 85610; 85730; 87040; 93005; 96361; 96374; 99283; 99284; J1885; J7030

== ENCOUNTER 2021-03-05 21:40 | Emergency (ER) | payer OTHER, SELFPAY ==
--- NOTE | ~2021-03-05 | XR_ITS ---
XR chest 1V DATE: 03/05/2021 23:04 INDICATION: Central chest pain when taking in deep breath after a fall TECHNIQUE: PA chest COMPARISON: 02/08/2019 2 view chest FINDINGS: Normal heart size. No hilar or mediastinal enlargement. No pulmonary infiltrate or consolid ation, pleural effusion or pulmonary vascular congestion or pneumothorax. Apparent stent overlies the right upper abdomen. IMPRESSION: No active cardiopulmonary disease Reviewed, dictated and finalized at location A.
--- NOTE | ~2021-03-05 | XR_ITS ---
XR lumbar spine 2-3V DATE: 03/05/2021 23:03 INDICATION: Right low back pain, limited movement after fall on 02/28/2021 TECHNIQUE: AP, lateral, coned lateral lumbosacral views COMPARISON: None FINDINGS: TIPS shunt device. There is moderate degenerative spurring and mild to moderate loss of interspace height throughout the lumbar spine. No fracture or bone destruction. The included lower thoracic and lumbar pedicles are intact. The sacroiliac joints are normal. IMPRESSION: Mild/moderate degenerative disc disease and spurring of the lumbar spine Status post TIPS procedure Reviewed, dictated and finalized at location A.
--- NOTE | ~2021-03-05 | CT_ITS ---
EXAMINATION: CT cervical spine wo con DATE: 03/05/2021 23:02 INDICATION: Right-sided neck pain after a fall on 02/28/2021 TECHNIQUE: Computed tomography (CT) of the cervical spine was performed without intravenous contrast. Automated exposure control and iterative reconstruction technique were employed. Exam dose: 566.72 mGy-cm total exam DLP. COMPARISON: None FINDINGS: C1 and C2 are normally aligned and the odontoid process is intact. No fracture or dislocati on or locked facet or prevertebral soft tissue swelling. There is degenerative spurring of the cervical spine with cervical disc spaces are relatively well pr eserved. IMPRESSION: Mild to moderate degenerative changes; no fracture or dislocation or locked facet Reviewed, dictated and finalized at Location A. Reviewed, dictated and finalized at location A.
[2021-03-05 22:03] VITALS: BP 156/78; PULSE 114; RESP 20; TEMP 36.6; O2SAT 97
--- NOTE | 2021-03-05 22:18 | ED.FALL ---
HPI - Fall General Chief Complaint: Fall Stated Complaint: back pain, chest pain Time Seen by Provider: 03/05/21 22:19 Source: patient Mode of arrival: ambulatory Limitations: no limitations History of Present Illness HPI Narrative: 50-year-old male with Obesity, obstructive sleep apnea, diabetes mellitus, Le cirrhosis with portal hypertension status post tips, chronic low back pain secondary to spinal stenosis was getting [email or web address] truck when he stepped on a slippery spot which caused him to fall. He fell five days ago on his back and hit his neck and his chest against the edge of the truck. no head injury on loss of consciousness. he presents to the ER with -- Low back pain which is worse than his usual chronic low back pain. No radiation of the pain. No bladder or bowel involvement. No motor or sensory loss of his lower extremities. -- Neck pain without any radiation of the pain. -- Pleuritic chest pain made worse by deep breathing. He has some nonproductive cough. No shortness of breath. MD complaint: fall Onset (ago): day(s) ( 5 days ago) Fall from: standing Fall witnessed: yes, by family Place fall occurred: street Loss of consciousness: none Symptoms prior to fall: none Context: tripped/slipped Location of injury: neck and back Severity: moderate Severity scale (1-10): 5 Quality: aching Associated symptoms (after fall): neck pain, chest pain and other ( Worsening of his chronic low back pain.) Related Data Home Medications Medication Instructions Recorded Confirmed acetaminophen-codeine 1 tablet PO Q8-10H PRN 02/19/20 03/05/21 albuterol sulfate 2 puff INHALATION Q8-10H PRN 02/19/20 03/05/21 hydrochlorothiazide 25 mg PO DAILY 02/19/20 03/05/21 insulin regular hum U-500 conc 100 - 200 unit SUBCUT TIDWMEAL 02/19/20 03/05/21 [Humulin R U-500 (Conc) Sophia] alprazolam 0.5 mg PO PRN PRN 09/04/20 03/05/21 lactulose 10 g PO QID 09/04/20 03/05/21 ondansetron HCl 4 mg PO PRN PRN 09/04/20 03/05/21 amitriptyline 25 mg PO DAILY 03/05/21 03/05/21 clindamycin phosphate 1 applic TOPICAL BID 03/05/21 03/05/21 ketoconazole 1 applic TOPICAL BID 03/05/21 03/05/21 lidocaine 1 applic TOPICAL BID 03/05/21 03/05/21 liraglutide [Victoza 3-Anatoliy] See Rx Instructions .ROUTE .COMPLEX 03/05/21 03/05/21 Allergies Allergy/AdvReac Type Severity Reaction Status Date / Time aztreonam [Azactam] Allergy Intermediate Unknown Verified 03/05/21 22:24 ciprofloxacin [Cipro] Allergy Intermediate Unknown Verified 03/05/21 22:24 esomeprazole [Nexium] Allergy Intermediate Unknown Verified 03/05/21 22:24 octreotide Allergy Intermediate Unknown Verified 03/05/21 22:24 sulfanilamide Allergy Intermediate Unknown Verified 03/05/21 22:24 erythromycin base Allergy Unknown Unknown Verified 03/05/21 22:24 Penicillins Allergy Unknown Unknown Verified 03/05/21 22:24 Sulfa (Sulfonamide Allergy Unknown Unknown Verified 03/05/21 22:24 Antibiotics) duloxetine Allergy Unknown Verified 03/05/21 22:24 magnesium Allergy Unknown Verified 03/05/21 22:24 nisoldipine Allergy Unknown Verified 03/05/21 22:24 prochlorperazine Allergy Unknown Verified 03/05/21 22:24 IVP dye Allergy Intermediate Unknown Uncoded 03/05/21 22:24 Contrast Media Allergy Unknown Unknown Uncoded 03/05/21 22:24 Review of Systems Review of Systems: All systems reviewed & are unremarkable except as noted in HPI and below Constitutional: Constitutional: Reports as per HPI Eyes: Eyes: Reports no additional eye complaints ENT: Reports system reviewed and no additional complaints, except as documented Cardiovascular: Cardiovascular: Reports chest pain ( chest pain with deep breathing.) Respiratory: Respiratory: Reports cough and Reports pain on inspiration Gastrointestinal: Gastrointestinal: Reports other ( Abdominal distension.) Comments: Patient has chronic diarrhea secondary to lactulose intake. No hematemesis or melena. Genitourinary: Genitourinary: Reports no additional male
--- NOTE | 2021-03-05 22:30 | ECG_ITS ---
Measurements Intervals [place] Rate: 104 P: 46 TN: 144 QRS: 15 QRSD: 83 T: 50 QT: 333 QTc: 439 Interpretive Statements SINUS TACHYCARDIA BORDERLINE ECG Electronically Signed On 03-06-2021 8:16:14 CDT by David Polo D.O.
[2021-03-05] MEDS: HYDROcodone/acetaminophen (*CRX) 5-325 MG TABLET 1 TAB PO (22:39)
[2021-03-05 23:11] LABS: Hemoglobin 9.4 g/dL (14.0-18.0); Immature Platelet Fraction Pct 3.1 % (1.0-7.0); Mean Corpuscular HGB Conc 27.6 g/dL (32.0-36.0); Mean Corpuscular Hemoglobin 19.7 pg (27.0-31.0); Mean Corpuscular Volume 71.1 fL (78.0-102.0); Mean Platelet Volume 9.8 fl (8.7-11.0); Platelet Count Result 99 K/mm3 (150-420); Red Blood Count 4.78 M/mm3 (4.70-6.10); Red Cell Distribution Width 17.1 % (11.6-14.4)
[2021-03-05 23:26] LABS: Alanine Aminotransferase 45 U/L (16-63); Albumin Level 3.5 g/dL (3.4-5.0); Alkaline Phosphatase 89 U/L (46-116); Ammonia 30 umol/L (11-32); Anion Gap 12 mmol/L (8-16); Aspartate Amino Transferase 30 U/L (15-37); Blood Urea Nitrogen 10 mg/dL (7-18); Calcium 8.5 mg/dL (8.5-10.1); Carbon Dioxide 27 mmol/L (21-32); Chloride 100 mmol/L (98-108); Estimated CRCL calculation 85 ml/min; Estimated Glomerular Filt Rate > 60; Glucose 349 mg/dL (70-99); Osmolality Calculated 301 mOsm/kg (285-295); Potassium 4.5 mmol/L (3.5-5.1); Sodium 139 mmol/L (136-145); Total Protein 7.3 g/dL (6.4-8.2); Troponin I 6.9 ng/L (0.00-60.4)
[2021-03-05 23:27] LABS: Band Neutrophils Percent 0 % (0-6); Basophils Absolute Manual 0.03 K/mm3 (0-0.1); Basophils Percent Manual 1 % (0-1); Eosinophils Absolute Manual 0.09 K/mm3 (0.02-0.5); Eosinophils Percent Manual 3 % (1-6); Lymphocytes Absolute Manual 0.57 K/mm3 (1.1-4.5); Lymphocytes Percent Manual 19 % (18-44); Monocytes Absolute Manual 0.27 K/mm3 (0.1-0.90); Monocytes Percent Manual 9 % (3-9); Neutrophils Absolute Manual 2.04 K/mm3 (1.3-6.7); Neutrophils Percent Manual 68 % (46-73); Total Cells Counted 100
[2021-03-05 23:48] VITALS: BP 152/70; PULSE 85; RESP 18; TEMP 36.2; O2SAT 97
--- NOTE | 2021-03-06 01:39 | ED.FALL ---
HPI - Fall General Chief Complaint: Fall Stated Complaint: back pain, chest pain Time Seen by Provider: 03/05/21 22:19 Source: patient Mode of arrival: ambulatory History of Present Illness Place fall occurred: street Context: tripped/slipped Associated symptoms (after fall): neck pain, chest pain and other ( Worsening of his chronic low back pain.) Related Data Home Medications Medication Instructions Recorded Confirmed acetaminophen-codeine 1 tablet PO Q8-10H PRN 02/19/20 03/05/21 albuterol sulfate 2 puff INHALATION Q8-10H PRN 02/19/20 03/05/21 hydrochlorothiazide 25 mg PO DAILY 02/19/20 03/05/21 insulin regular hum U-500 conc 100 - 200 unit SUBCUT TIDWMEAL 02/19/20 03/05/21 [Humulin R U-500 (Conc) Kwikpen] alprazolam 0.5 mg PO PRN PRN 09/04/20 03/05/21 lactulose 10 g PO QID 09/04/20 03/05/21 ondansetron HCl 4 mg PO PRN PRN 09/04/20 03/05/21 amitriptyline 25 mg PO DAILY 03/05/21 03/05/21 clindamycin phosphate 1 applic TOPICAL BID 03/05/21 03/05/21 ketoconazole 1 applic TOPICAL BID 03/05/21 03/05/21 lidocaine 1 applic TOPICAL BID 03/05/21 03/05/21 liraglutide [Victoza 3-Anatoliy] See Rx Instructions .ROUTE .COMPLEX 03/05/21 03/05/21 Allergies Allergy/AdvReac Type Severity Reaction Status Date / Time aztreonam [Azactam] Allergy Intermediate Unknown Verified 03/05/21 22:24 ciprofloxacin [Cipro] Allergy Intermediate Unknown Verified 03/05/21 22:24 esomeprazole [Nexium] Allergy Intermediate Unknown Verified 03/05/21 22:24 octreotide Allergy Intermediate Unknown Verified 03/05/21 22:24 sulfanilamide Allergy Intermediate Unknown Verified 03/05/21 22:24 erythromycin base Allergy Unknown Unknown Verified 03/05/21 22:24 Penicillins Allergy Unknown Unknown Verified 03/05/21 22:24 Sulfa (Sulfonamide Allergy Unknown Unknown Verified 03/05/21 22:24 Antibiotics) duloxetine Allergy Unknown Verified 03/05/21 22:24 magnesium Allergy Unknown Verified 03/05/21 22:24 nisoldipine Allergy Unknown Verified 03/05/21 22:24 prochlorperazine Allergy Unknown Verified 03/05/21 22:24 IVP dye Allergy Intermediate Unknown Uncoded 03/05/21 22:24 Contrast Media Allergy Unknown Unknown Uncoded 03/05/21 22:24 [facility] Past Medical History Medical History Chronic back pain Diabetes mellitus type 2 in obese GERD (gastroesophageal reflux disease) GI bleeding Hepatic encephalopathy Liver failure Varices, esophageal Surgical History Surgical History S/P TIPS (transjugular intrahepatic portosystemic shunt) Social History Social History Smoking status: Former smoker Alcohol intake: never Substance use: never Course Vital Signs Vital signs: Vital Signs Temperature 36.6 C 03/05/21 22:03 Pulse Rate 114 H 03/05/21 22:03 Respiratory Rate 20 03/05/21 22:03 Blood Pressure 156/78 H 03/05/21 22:03 Pulse Oximetry 97 03/05/21 22:03 Temperature 36.2 C L 03/05/21 23:48 Pulse Rate 85 03/05/21 23:48 Respiratory Rate 18 03/05/21 23:48 Blood Pressure 152/70 H 03/05/21 23:48 Pulse Oximetry 97 03/05/21 23:48 - Fall Lab Data Result diagrams: 03/05/21 23:05 03/05/21 23:05 Labs: Lab Results 03/05/21 03/05/21 Range/Units 23:05 23:05 WBC 3.0 L (4.8-10.8) K/mm3 RBC 4.78 (4.70-6.10) M/mm3 Hgb 9.4 L (14.0-18.0) g/dL Hct 34.0 L (40.0-54.0) % MCV 71.1 L (78.0-102.0) fL MCH 19.7 L (27.0-31.0) pg MCHC 27.6 L (32.0-36.0) g/dL RDW 17.1 H (11.6-14.4) % Plt Count 99 L (150-420) K/mm3 MPV 9.8 (8.7-11.0) fl Immature Gran % (Auto) Not Reportable Neut % (Auto) Not Reportable Lymph % (Auto) Not Reportable [place] % (Auto) Not Reportable Eos % (Auto) Not Reportable Baso % (Auto) Not Reportable Lymph # (Auto) Not Reportable [place] # (Auto) Not Reportable Eos # (
== END 2021-03-06 | disposition home or self-care (01) ==
LOC: CHSED 21:42
PROVIDERS: Emergency Provider Internal Medicine Critical Care Medicine; PCP Physician Assistant
DX: R07.81 Pleurodynia (principal); D61.818 Other pancytopenia; M54.2 Cervicalgia
CPT/HCPCS: 36415; 71045; 72100; 72125; 80053; 82140; 84484; 85025; 85055; 93005; 99283; 99284; A9270

== ENCOUNTER 2021-03-13 15:34 | Outpatient (CLI) | payer SELFPAY ==
--- NOTE | ~2021-03-13 | XR_ITS ---
EXAMINATION: XR ribs BI 3V w CXR 2V INDICATION: Anterior chest wall pain TECHNIQUE: PA and lateral views of the chest and 3 views of the bilateral ribs were obtained. COMPARISON: 03/05/2021 FINDINGS: The lungs are free of acute opacities. There is no pleural effusion or pneumothorax. The ca rdiomediastinal silhouette is normal. No displaced rib fracture is identified. A TIPS is noted. IMPRESSION: 1. No acute cardiopulmonary abnormality or evidence of displaced rib fracture. Reviewed, dictated and finalized at location B. [facility]
== END 2021-03-13 15:35 | disposition home or self-care (01) ==
PROVIDERS: PCP Physician Assistant; Visit Provider Physician Assistant
DX: R07.89 Other chest pain (principal)
CPT/HCPCS: 71046; 71110

== ENCOUNTER 2021-03-18 10:33 | Emergency (ER) | payer OTHER, SELFPAY ==
[2021-03-18 10:45] VITALS: BP 166/87; PULSE 101; RESP 24; TEMP 36.8; O2SAT 98
--- NOTE | 2021-03-18 10:56 | ED.SOB ---
HPI - SOB/Dyspnea General Chief Complaint: Shortness of Breath/Dyspnea Stated Complaint: Dr Pavon told to come-shallow breathing Source: patient Mode of arrival: ambulatory Limitations: no limitations History of Present Illness HPI Narrative: this is a 50-year-old gentleman that presents with some shortness of breath/not able to take a deep breath secondary to a strained right pectoral muscle that occurred about 2 to 3 weeks ago after he was doing some lifting at [employer] and inadvertently fell into a an object injuring his right pectoral muscle, has good range of motion in his right arm and shoulder, has more shallow breathing secondary to pain is coming from the right pectoral muscle area otherwise no cough no shortness of breath no chest tightness, there is pain with palpation in the right pectoral muscle area. MD elicited complaint: shortness of breath ( secondary to a strained right pectoralis muscle) Onset (ago): day(s) Context: trauma/injury Related Data Home Medications Medication Instructions Recorded Confirmed acetaminophen-codeine 1 tablet PO Q8-10H PRN 02/19/20 03/05/21 albuterol sulfate 2 puff INHALATION Q8-10H PRN 02/19/20 03/05/21 hydrochlorothiazide 25 mg PO DAILY 02/19/20 03/05/21 insulin regular hum U-500 conc 100 - 200 unit SUBCUT TIDWMEAL 02/19/20 03/05/21 [Humulin R U-500 (Conc) Kwikpen] alprazolam 0.5 mg PO PRN PRN 09/04/20 03/05/21 lactulose 10 g PO QID 09/04/20 03/05/21 ondansetron HCl 4 mg PO PRN PRN 09/04/20 03/05/21 amitriptyline 25 mg PO DAILY 03/05/21 03/05/21 clindamycin phosphate 1 applic TOPICAL BID 03/05/21 03/05/21 ketoconazole 1 applic TOPICAL BID 03/05/21 03/05/21 lidocaine 1 applic TOPICAL BID 03/05/21 03/05/21 liraglutide [Victoza 3-Anatoliy] See Rx Instructions .ROUTE .COMPLEX 03/05/21 03/05/21 Allergies Allergy/AdvReac Type Severity Reaction Status Date / Time aztreonam [Azactam] Allergy Intermediate Unknown Verified 03/05/21 22:24 ciprofloxacin [Cipro] Allergy Intermediate Unknown Verified 03/05/21 22:24 esomeprazole [Nexium] Allergy Intermediate Unknown Verified 03/05/21 22:24 octreotide Allergy Intermediate Unknown Verified 03/05/21 22:24 sulfanilamide Allergy Intermediate Unknown Verified 03/05/21 22:24 erythromycin base Allergy Unknown Unknown Verified 03/05/21 22:24 Penicillins Allergy Unknown Unknown Verified 03/05/21 22:24 Sulfa (Sulfonamide Allergy Unknown Unknown Verified 03/05/21 22:24 Antibiotics) duloxetine Allergy Unknown Verified 03/05/21 22:24 magnesium Allergy Unknown Verified 03/05/21 22:24 nisoldipine Allergy Unknown Verified 03/05/21 22:24 prochlorperazine Allergy Unknown Verified 03/05/21 22:24 IVP dye Allergy Intermediate Unknown Uncoded 03/05/21 22:24 Contrast Media Allergy Unknown Unknown Uncoded 03/05/21 22:24 Review of Systems Review of Systems: All systems reviewed & are unremarkable except as noted in HPI and below PMFSH Past Medical History Medical History Chronic back pain Diabetes mellitus type 2 in obese GERD (gastroesophageal reflux disease) GI bleeding Hepatic encephalopathy Liver failure Varices, esophageal Surgical History Surgical History S/P TIPS (transjugular intrahepatic portosystemic shunt) Social History Social History Smoking status: Former smoker Alcohol intake: never Substance use: never Exam Const: General: no acute distress HENMT: Head: normal to inspection Eyes: Conjunctivae: conjunctivae normal Pupils: Equal, round and reactive pupils present EOM: EOMs intact bilaterally Neck: Neck: normal visual inspection Chest: Chest palpation & inspection: normal inspection of the chest Resp: Effort & Inspection: normal respiratory effort Cardio: Rate: regular rate Rhythm: regular rhythm GI: GI Palp: Yes Soft to palpation Percussion: Yes normal
== END 2021-03-18 11:11 | disposition home or self-care (01) ==
PROVIDERS: Emergency Provider Emergency Medicine; PCP Physician Assistant
DX: T14.8XXA Other injury of unspecified body region, initial encounter (principal); X50.9XXA Other and unspecified overexertion or strenuous movements or postures, initial encounter
CPT/HCPCS: 99283

== ENCOUNTER 2021-03-18 16:35 | Outpatient (CLI) | payer OTHER, SELFPAY ==
[2021-03-18 17:32] LABS: SARS-CoV-2 RNA PCR Negative (Negative)
== END 2021-03-18 16:36 | disposition home or self-care (01) ==
LOC: CHSLAB 16:37
PROVIDERS: PCP Physician Assistant; Visit Provider Physician Assistant
DX: Z20.822 Contact with and (suspected) exposure to COVID-19 (principal)
CPT/HCPCS: C9803; U0003; U0005

== ENCOUNTER 2021-04-09 14:46 | Outpatient (CLI) | payer OTHER, SELFPAY ==
[2021-04-09 16:34] LABS: SARS-CoV-2 RNA PCR Negative (Negative)
== END 2021-04-09 14:47 | disposition home or self-care (01) ==
LOC: CHSLAB 14:47
PROVIDERS: PCP Physician Assistant; Visit Provider Physician Assistant
DX: Z20.822 Contact with and (suspected) exposure to COVID-19 (principal)
CPT/HCPCS: C9803; U0003; U0005

== ENCOUNTER 2021-05-22 13:52 | Outpatient (CLI) | payer OTHER, SELFPAY ==
[2021-05-23 21:12] LABS: SARS-CoV-2 RNA PCR Negative
== END 2021-05-22 13:53 | disposition home or self-care (01) ==
LOC: CHSLAB 13:53
PROVIDERS: PCP Family Medicine; Visit Provider Family Medicine
DX: Z20.822 Contact with and (suspected) exposure to COVID-19 (principal)
CPT/HCPCS: C9803; U0003; U0005

== ENCOUNTER 2022-01-17 07:53 | Outpatient (CLI) | payer BC, SELFPAY ==
[2022-01-17 08:53] LABS: SARS-CoV-2 RNA PCR Positive (Negative)
== END 2022-01-17 07:54 | disposition home or self-care (01) ==
LOC: CHSLAB 07:56
PROVIDERS: PCP Physician Assistant; Visit Provider Physician Assistant
DX: U07.1 COVID-19 (principal)
CPT/HCPCS: C9803; U0003; U0005

== ENCOUNTER 2022-01-17 11:24 | Emergency (ER) | payer BC, SELFPAY ==
[2022-01-17 11:25] VITALS: BP 138/97; PULSE 114; RESP 18; TEMP 36.9; O2SAT 98
--- NOTE | 2022-01-17 11:32 | ED.URI ---
HPI - URI/Sore Throat General Chief Complaint: Upper Respiratory Infection Stated Complaint: Covid + headache,SOB,Chest hurts Time Seen by Provider: 01/17/22 11:29 Source: patient and RN notes reviewed Mode of arrival: ambulatory Limitations: no limitations History of Present Illness HPI Narrative: Patient began with symptoms 2 days ago. He took a [id number] COVID test was positive. He then called his primary care sent him here for a COVID test this morning but he does not have those results. I explained to him that if the [id number] test is positive then he is positive for COVID. He is also sent in because he complained of some chest tightness and some shortness of breath with exertion. He has comorbidities that would require prescription for antiviral COVID medications. MD elicited complaint: cough, sore throat and nasal congestion Onset (ago): day(s) (2) Consistency: constant Severity: moderate Description of mucous: clear Able to tolerate fluids by mouth: Yes Exacerbating factors: exertion Relieving factors: rest Associated symptoms: myalgias, sore throat, cough, chest pain (tightness), shortness of breath, nausea and diarrhea Treatments prior to arrival: none Related Data Home Medications Medication Instructions Recorded Confirmed albuterol sulfate 90 mcg/actuation 2 puff inhalation Q8-10H PRN 02/19/20 01/17/22 aerosol inhaler Wheezing insulin regular hum U-500 conc 500 100 - 200 unit subcut TIDWMEAL 02/19/20 01/17/22 unit/mL(3 mL) subcut pen (Humulin R U-500 (Conc) Insulin Kwikpen) alprazolam 1 mg tablet 0.5 mg PO PRN PRN Anxiety 09/04/20 01/17/22 lactulose 10 gram/15 mL oral syrup 10 g PO QID 09/04/20 01/17/22 ondansetron HCl 4 mg tablet 4 mg PO PRN PRN Nausea 09/04/20 01/17/22 liraglutide 0.6 mg/0.1 mL (18 mg/3 See Rx Instructions .Route .COMPLEX 03/05/21 01/17/22 mL) subcutaneous pen injector (Victoza 3-Anatoliy) Allergies Allergy/AdvReac Type Severity Reaction Status Date / Time aztreonam [Azactam] Allergy Intermediate Unknown Verified 01/17/22 11:42 ciprofloxacin [Cipro] Allergy Intermediate Unknown Verified 01/17/22 11:42 esomeprazole [Nexium] Allergy Intermediate Unknown Verified 01/17/22 11:42 octreotide Allergy Intermediate Unknown Verified 01/17/22 11:42 sulfanilamide Allergy Intermediate Unknown Verified 01/17/22 11:42 erythromycin base Allergy Unknown Unknown Verified 01/17/22 11:42 Penicillins Allergy Unknown Unknown Verified 01/17/22 11:42 Sulfa (Sulfonamide Allergy Unknown Unknown Verified 01/17/22 11:42 Antibiotics) duloxetine Allergy Unknown Verified 01/17/22 11:42 magnesium Allergy Unknown Verified 01/17/22 11:42 nisoldipine Allergy Unknown Verified 01/17/22 11:42 prochlorperazine Allergy Unknown Verified 01/17/22 11:42 IVP dye Allergy Intermediate Unknown Uncoded 03/05/21 22:24 Contrast Media Allergy Unknown Unknown Uncoded 03/05/21 22:24 Review of Systems Review of Systems: All systems reviewed & are unremarkable except as noted in HPI and below PMFSH Past Medical History Medical History Chronic back pain Diabetes mellitus type 2 in obese GERD (gastroesophageal reflux disease) GI bleeding Hepatic encephalopathy Liver failure Varices, esophageal Surgical History Surgical History S/P TIPS (transjugular intrahepatic portosystemic shunt) Social History Social History Smoking status: Former smoker Alcohol intake: never Substance use: never Exam Const: General: healthy appearing, no acute distress and alert Nutritional Appearance: well nourished and obese Orientation/consciousness: patient oriented x3 Limitations: no limitations HENMT: Head: normal to inspection Ears: external ears normal Eyes: Conjunctivae: conjunctivae normal Pupils: Equal, round and reactive pupils present EOM: EOMs i
[2022-01-17 12:18] LABS: Hematocrit 33.9 % (40.0-54.0); Hemoglobin 9.6 g/dL (14.0-18.0); Immature Platelet Fraction Pct 3.8 % (1.0-7.0); Mean Corpuscular HGB Conc 28.3 g/dL (32.0-36.0); Mean Corpuscular Volume 70.5 fL (78.0-102.0); Mean Platelet Volume 10.1 fl (8.7-11.0); Platelet Count Result 84 K/mm3 (150-420); Red Blood Count 4.81 M/mm3 (4.70-6.10); Red Cell Distribution Width 17.7 % (11.6-14.4); White Blood Count 2.1 K/mm3 (4.8-10.8)
[2022-01-17 12:30] LABS: D Dimer 0.19 mg/L (0.19-0.50)
[2022-01-17 12:34] LABS: Alanine Aminotransferase 90 U/L (16-63); Albumin Level 3.5 g/dL (3.4-5.0); Alkaline Phosphatase 88 U/L (46-116); Anion Gap 10 mmol/L (8-16); Aspartate Amino Transferase 120 U/L (15-37); Bilirubin,Total 1.7 mg/dL (0.00-1.00); Blood Urea Nitrogen 12 mg/dL (7-18); CRP 3.7 mg/dL (0.0-0.9); Carbon Dioxide 24 mmol/L (21-32); Chloride 97 mmol/L (98-108); Estimated CRCL calculation 86 ml/min; Estimated Glomerular Filt Rate > 60; Magnesium 1.8 mg/dL (1.8-2.4); Osmolality Calculated 293 mOsm/kg (285-295); Potassium 4.1 mmol/L (3.5-5.1); Sodium 131 mmol/L (136-145); Total Protein 6.9 g/dL (6.4-8.2); Troponin I 8.7 ng/L (0.00-60.4)
--- NOTE | 2022-01-17 12:35 | PC.NURSE ---
PT HAS BEEN UP TO RR X3 SINCE ED VISIT. NAD NOTED, PT IS AWAITING RESULTS AT THIS TIME. WILL CONTINUE TO MONITOR.
[2022-01-17 12:37] LABS: Lactic Acid Reflex 3.2 mmol/L (0.4-2.0)
[2022-01-17 12:41] LABS: Glucose 498 mg/dL (70-99)
[2022-01-17] MEDS: INSULIN HUMAN REGULAR (*BKC) 100 UNITS/ML 15 UNITS SUB-Q (12:44)
--- NOTE | 2022-01-17 12:49 | PC.NURSE ---
GLUCOSE WAS CALLED BY LAB TO BE 498, ERP AWARE AND MEDICATION ADMINISTERED ORDERED. PT REPORTS HE ATE THIS AM AND DID NOT TAKE HIS MEDICATION BECAUSE HE HAD BEEN HAVING EMESIS. WATER PROVIDED TO PT. PT DENIES ANY OTHER NEEDS OR COMPLAINTS.
[2022-01-17 12:50] LABS: Neutrophils Percent Manual 50 % (46-73); Total Cells Counted 100
[2022-01-17 12:51] LABS: Band Neutrophils Percent 5 % (0-6); Neutrophils Absolute Manual 1.15 K/mm3 (1.3-6.7)
[2022-01-17 12:52] LABS: Basophils Percent Manual 0 % (0-1); Eosinophils Absolute Manual 0.02 K/mm3 (0.02-0.5); Eosinophils Percent Manual 1 % (1-6); Lymphocytes Absolute Manual 0.54 K/mm3 (1.1-4.5); Lymphocytes Percent Manual 26 % (18-44); Monocytes Absolute Manual 0.37 K/mm3 (0.1-0.90); Monocytes Percent Manual 18 % (3-9); Platelet Estimate Decreased (Adequate)
[2022-01-17 13:10] VITALS: BP 138/82; PULSE 66; RESP 18; TEMP 36.7; O2SAT 100
--- NOTE | 2022-01-17 13:14 | PC.NURSE ---
UNABLE TO CHART MED RESPONSE, NO ADVERSE RXN NOTED TO INSULIN
[2022-01-17 15:13] LABS: Reflex Lactic Acid Yes or No Add Lactic
== END 2022-01-17 13:10 | disposition home or self-care (01) ==
PROVIDERS: Emergency Provider Emergency Medicine; PCP Physician Assistant
DX: U07.1 COVID-19 (principal)
CPT/HCPCS: 36415; 80053; 83605; 83735; 84484; 85025; 85055; 85380; 86140; 99284; C9803; J1815; U0003; U0005

== ENCOUNTER 2022-10-30 07:23 | Outpatient (CLI) | payer BC, SELFPAY ==
--- NOTE | ~2022-10-30 | US_ITS ---
Limited Abdominal Sonogram: Real-time sonographic imaging of the right upper quadrant was performed. Clinical History: Cirrhosis Findings: The liver appears echogenic/heterogeneous with no evidence of mass lesion or bile duct dil atation. Main portal vein demonstrates normal direction of flow. The gallbladder is well distended, a nd appears normal with 5 mm gallbladder wall polyp present. The common bile duct measures 5 mm. The visualized pancreas, aorta, and IVC are unremarkable. Impression: Heterogeneous hepatic echotexture compatible with history of cirrhosis. 5 mm gallbladder wall polyp. Reviewed, dictated and finalized at location . Impression: Heterogeneous hepatic echotexture compatible with history of cirrhosis. 5 mm gallbladder wall polyp.
== END 2022-10-30 07:24 | disposition home or self-care (01) ==
PROVIDERS: PCP Physician Assistant
DX: K74.60 Unspecified cirrhosis of liver (principal); K82.4 Cholesterolosis of gallbladder
CPT/HCPCS: 76705

== ENCOUNTER 2022-11-26 19:09 | Emergency (ER) | payer BC, SELFPAY ==
[2022-11-26 19:18] VITALS: BP 126/69; PULSE 88; RESP 18; TEMP 36.8; O2SAT 96
--- NOTE | 2022-11-26 19:19 | ED.BACK ---
HPI - Back Pain/Injury General Chief Complaint: Back Pain/Injury Stated Complaint: back pain Time Seen by Provider: 11/26/22 19:15 Source: patient Mode of arrival: ambulatory Limitations: no limitations History of Present Illness HPI Narrative: 52-year-old male with a history of alcoholic cirrhosis, GI bleeding status post tips, hepatic encephalopathy, diabetes mellitus, chronic low back pain presents to the ER with -- low back pain. patient has chronic low back pain with intermittent exacerbation. No history of recent trauma. Pain is located in the lower back without any radiation. No bladder or bowel involvement. No loss of perineal sensation. patient has diagnosed degenerative disc disease. -- Chronic paresthesias in glove and stocking pattern from his diabetes mellitus. No recent worsening of his paresthesias. No recent GI bleeding. MD elicited complaint: back pain Pertinent past history: prior back pain Onset (ago): day(s) Timing: constant Severity: severe Similar Symptoms Previously: Yes Quality: sharp Location: lumbar spine Radiation: none Exacerbating factors: movement Relieving factors: immobilization Associated symptoms: denies other symptoms, numbness and urinary incontinence ( Increased frequency of micturition with hesitancy and precipitate N/C) Related Data Home Medications Medication Instructions Recorded Confirmed albuterol sulfate 90 mcg/actuation 2 puff inhalation Q8-10H PRN 02/19/20 11/26/22 aerosol inhaler Wheezing alprazolam 1 mg tablet 0.5 mg PO PRN PRN Anxiety 09/04/20 11/26/22 lactulose 10 gram/15 mL oral syrup 10 g PO QID 09/04/20 11/26/22 ondansetron HCl 4 mg tablet 4 mg PO PRN PRN Nausea 09/04/20 11/26/22 liraglutide 0.6 mg/0.1 mL (18 mg/3 See Rx Instructions .Route .COMPLEX 03/05/21 01/17/22 mL) subcutaneous pen injector (Victoza 3-Anatoliy) Allergies Allergy/AdvReac Type Severity Reaction Status Date / Time aztreonam [Azactam] Allergy Intermediate Unknown Verified 11/26/22 19:26 ciprofloxacin [Cipro] Allergy Intermediate Unknown Verified 11/26/22 19:26 esomeprazole [Nexium] Allergy Intermediate Unknown Verified 11/26/22 19:26 octreotide Allergy Intermediate Unknown Verified 07/26/23 19:26 sulfanilamide Allergy Intermediate Unknown Verified 11/26/22 19:26 erythromycin base Allergy Unknown Unknown Verified 11/26/22 19:26 Penicillins Allergy Unknown Unknown Verified 11/26/22 19:26 Sulfa (Sulfonamide Allergy Unknown Unknown Verified 11/26/22 19:26 Antibiotics) duloxetine Allergy Unknown Verified 11/26/22 19:26 magnesium Allergy Unknown Verified 11/26/22 19:26 nisoldipine Allergy Unknown Verified 11/26/22 19:26 prochlorperazine Allergy Unknown Verified 11/26/22 19:26 IVP dye Allergy Intermediate Unknown Uncoded 11/26/22 19:26 Contrast Media Allergy Unknown Unknown Uncoded 11/26/22 19:26 Review of Systems Review of Systems: All systems reviewed & are unremarkable except as noted in HPI and below Constitutional: Constitutional: Reports as per HPI and Reports no additional constitutional complaints Eyes: Eyes: Reports as per HPI and Reports no additional eye complaints ENT: Reports system reviewed and no additional complaints, except as documented and Reports as per HPI Cardiovascular: Cardiovascular: Reports as per HPI and Reports no additional cardiovascular complaints Respiratory: Respiratory: Reports as per HPI and Reports no additional respiratory complaints Gastrointestinal: Gastrointestinal: Reports as per HPI and Reports no additional gastrointestinal complaints Genitourinary: Genitourinary: Reports no additional male genitourinary complaints Musculoskeletal: Musculoskeletal: Reports no additional musculoskeletal complaints, Reports as per HPI and Reports back pain Integumentary/Breasts: Skin/Breast: Reports system reviewed and no additional complaints, except as docu and Reports as per HPI Neurologic: Reports system reviewed and no additional complaints, except as
[2022-11-26] MEDS: ONDANSETRON HCL ODT 4 MG TABLET PO (19:50)
[2022-11-26] MEDS: HYDROmorphone HCL INJ (*CRX) 2 MG/ML VIAL 1 MG IM (19:50)
[2022-11-26] MEDS: HYDROmorphone HCL INJ (*CRX) 2 MG/ML VIAL 0.5 MG IM (20:44)
[2022-11-26 21:07] VITALS: BP 125/74; PULSE 84; RESP 16; TEMP 37.1; O2SAT 95
== END 2022-11-26 21:11 | disposition home or self-care (01) ==
PROVIDERS: Emergency Provider Internal Medicine Critical Care Medicine; PCP Physician Assistant
DX: M54.42 Lumbago with sciatica, left side (principal); E11.9 Type 2 diabetes mellitus without complications; Z87.891 Personal history of nicotine dependence
CPT/HCPCS: 96372; 99284; A9270; J1170

== ENCOUNTER 2022-12-14 15:30 | Emergency (ER) | payer BC, SELFPAY ==
--- NOTE | ~2022-12-14 | CT_ITS ---
EXAMINATION: CT lumbar spine wo con DATE: 12/14/2022 17:00 INDICATION: Chronic low back pain. TECHNIQUE: Computed tomography (CT) of the lumbar spine was performed without intravenous contrast. A utomated exposure control and iterative reconstruction technique were employed. The dose-length produ ct was 931.57 mGy-cm. COMPARISON: CT abdomen and pelvis 11/08/20 FINDINGS: Partially visualized is a TIPS. 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 There is 6 degrees le vocurvature of lumbar spine. There is mild chronic anterior wedging of T12 vertebral body. Interverte bral disc heights are normal. The following disc levels are specifically discussed: L1-L2: The disc is bulging. There is mild bilateral facet joint osteoarthritis. There is mild right n eural foraminal stenosis. There is mild central canal stenosis. L2-L3: The disc does not extend beyond the endplate margin. There is moderate bilateral facet joint o steoarthritis. There is no neural foraminal stenosis. There is no central canal stenosis. L3-L4: The disc is bulging. There is moderate bilateral facet joint osteoarthritis. There is mild aliyah ateral neural foraminal stenosis. There is mild central canal stenosis. L4-L5: The disc is bulging. There is mild bilateral facet joint osteoarthritis. There is moderate rig ht and mild left neural foraminal stenosis. There is mild central canal stenosis. L5-S1: The disc does not extend beyond the endplate margin. There is moderate bilateral facet joint o steoarthritis. There is no neural foraminal stenosis. There is no central canal stenosis. IMPRESSION: 1. Mild lumbar spondylosis. Reviewed, dictated and finalized at location E. IMPRESSION: 1. Mild lumbar spondylosis.
[2022-12-14 15:30] VITALS: BP 127/65; PULSE 93; RESP 16; TEMP 36.9; O2SAT 96
[2022-12-14 16:39] LABS: Appearance Urine Clear (Clear); Bilirubin Urine Negative (Negative); Blood Urine Negative (Negative); Color Urine Light Yellow (Yellow); Glucose Urine UA 3+ (Negative); Ketones Urine Negative (Negative); Leukocyte Esterase Ur Negative (Negative); Nitrate Urine Negative (Negative); Protein Urine Negative (Negative); pH Urine 6.5 (5.0-8.0)
[2022-12-14 16:45] LABS: Add Urine Microscopic? YES; RBC Urine None seen /hpf (0-2); Squamous Epithelial Cell Urine None seen /hpf (Few); WBC Urine None seen /hpf (0-3)
--- NOTE | 2022-12-14 16:45 | ED.GENADULT ---
HPI - General Adult General Chief complaint: Back Pain/Injury Stated complaint: back pain Time Seen by Provider: 12/14/22 16:02 Source: patient Mode of arrival: ambulatory Limitations: no limitations History of Present Illness HPI narrative: Patient is a 52-year-old white male with history of chronic back pain since 2011 after having a back injury he says he has also had spinal stenosis. 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 From time to time his back flares up. He has been to Pain Management has had injections. He is seen in the emergency room about 2 weeks ago they gave him a Dilaudid shot his pains [place] prescription for hydrocodone acetaminophen but his pain in his back persist. They had offered to do a CT but he preferred refused at that time but now is here and would like wish a CT scan done.. He said a couple weeks ago he started to work on his relatives car all by himself when he really tam of done that he thinks that probably aggravated his back. He is followed by [facility] and he has been using ibuprofen and Aleve for pain. Denies any numbness or tingling or paresthesias problems walking talking seeing or hearing rash or itching bleeding or bruising swelling lumps or bumps dizziness or lightheadedness nausea vomiting problems voiding or stooling such as bladder incontinence or fecal incontinence or perirectal numbness. Denies any other complaints. Past medical history is followed by a liver doctor in [place] for his cirrhosis secondary Le syndrome. History GERD he has a tips shunt chronic low back pain spinal stenosis history of anxiety is on disability for his back cirrhosis and diabetes. He has had hepatic encephalopathy in the past and has had esophageal varices. Related Data Home Medications Medication Instructions Recorded Confirmed albuterol sulfate 90 mcg/actuation 2 puff inhalation Q8-10H PRN 02/19/20 11/26/22 aerosol inhaler Wheezing alprazolam 1 mg tablet 0.5 mg PO PRN PRN Anxiety 09/04/20 11/26/22 lactulose 10 gram/15 mL oral syrup 10 g PO QID 09/04/20 11/26/22 ondansetron HCl 4 mg tablet 4 mg PO PRN PRN Nausea 09/04/20 11/26/22 liraglutide 0.6 mg/0.1 mL (18 mg/3 See Rx Instructions .Route .COMPLEX 03/05/21 01/17/22 mL) subcutaneous pen injector (Victoza 3-Anatoliy) Allergies Allergy/AdvReac Type Severity Reaction Status Date / Time aztreonam [Azactam] Allergy Intermediate Unknown Verified 12/14/22 15:39 ciprofloxacin [Cipro] Allergy Intermediate Unknown Verified 12/14/22 15:39 esomeprazole [Nexium] Allergy Intermediate Unknown Verified 12/14/22 15:39 octreotide Allergy Intermediate Unknown Verified 12/14/22 15:39 sulfanilamide Allergy Intermediate Unknown Verified 12/14/22 15:39 erythromycin base Allergy Unknown Unknown Verified 12/14/22 15:39 Penicillins Allergy Unknown Unknown Verified 12/14/22 15:39 Sulfa (Sulfonamide Allergy Unknown Unknown Verified 12/14/22 15:39 Antibiotics) duloxetine Allergy Unknown Verified 12/14/22 15:39 magnesium Allergy Unknown Verified 12/14/22 15:39 nisoldipine Allergy Unknown Verified 12/14/22 15:39 prochlorperazine Allergy Unknown Verified 12/14/22 15:39 IVP dye Allergy Intermediate Unknown Uncoded 11/26/22 19:26 Contrast Media Allergy Unknown Unknown Uncoded 11/26/22 19:26 Review of Systems Review of Systems: All systems reviewed & are unremarkable except as noted in HPI and below PMFSH Past Medical History Medical History Chronic back pain Diabetes mellitus type 2 in obese GERD (gastroesophageal reflux disease) GI bleeding Hepatic encephalopathy Liver failure Varices, esophageal Surgical History Surgical History S/P TIPS (transjugular intrahepatic portosystemic shunt) Social History Social History Smoking sta
[2022-12-14 16:48] LABS: Amphetamine Screen Urine Negative (Negative); Barbiturate Screen Urine Negative (Negative); Benzodiazepines Screen Urine Negative (Negative); Cannabinoid Screen Urine Negative (Negative); Cocaine Screen Urine Negative (Negative); Methadone Screen Urine Negative (Negative); Opiate Screen Urine Negative (Negative); Phencyclidine Screen Urine Negative (Negative)
[2022-12-14] MEDS: KETOROLAC (*BKC) 60 MG/2 ML VIAL IM (17:00)
[2022-12-14 17:30] VITALS: BP 148/85; PULSE 85; RESP 18; TEMP 36.3; O2SAT 97
[2022-12-14 18:29] VITALS: BP 129/74; PULSE 86; RESP 18; O2SAT 98
== END 2022-12-14 18:29 | disposition home or self-care (01) ==
PROVIDERS: Emergency Provider Emergency Medicine; PCP Physician Assistant
DX: M47.816 Spondylosis without myelopathy or radiculopathy, lumbar region (principal); E11.9 Type 2 diabetes mellitus without complications; K74.60 Unspecified cirrhosis of liver; Z87.891 Personal history of nicotine dependence
CPT/HCPCS: 72131; 80307; 81001; 96372; 99284; J1885

== ENCOUNTER 2023-03-14 20:54 | Emergency (ER) | payer SELFPAY ==
--- NOTE | ~2023-03-14 | XR_ITS ---
EXAM: XR hand LT min 3V DATE: 03/14/2023 21:14 HISTORY: left hand injury. FALL. PAIN LEFT HAND, 4TH AND 5TH DIGITS. . COMPARISON: None available. FINDINGS: Normal mineralization. No fracture or dislocation. No lytic or blastic lesion. Joint space s are maintained. No erosion or periosteal change. Soft tissues within normal limits. IMPRESSION: No acute osseous finding the left hand. Reviewed, dictated and finalized at location K. 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
[2023-03-14 21:03] VITALS: BP 137/98; PULSE 92; RESP 20; TEMP 36.4; O2SAT 94
--- NOTE | 2023-03-14 21:13 | ED.UPPEXIN ---
HPI - Extremity Injury (Upper) General Chief Complaint: Extremity Injury, Upper Stated Complaint: hand injury Time Seen by Provider: 03/14/23 21:04 Source: patient Mode of arrival: ambulatory History of Present Illness HPI narrative: this is a 52-year-old male who presents after he smashed his fingers on a baseboard causing pain and swelling in his 3rd and 4th distal fingers there is some tenderness and decreased range of motion secondary to swelling, patient does have pain medication that he took her prior to arrival. No other injuries no lacerations no avulsion injuries. MD complaint: injury to: left Onset (ago): hour(s) Other Extremity Injury: Left: hand ( 3rd and 4th distal finger pain and mild swelling) Handedness: right Place: home Severity: mild Severity scale (1-10): 4 Relieving factors: medication Exacerbating factors: movement of extremity Related Data Home Medications Medication Instructions Recorded Confirmed albuterol sulfate 90 mcg/actuation 2 puff inhalation Q8-10H PRN 02/19/20 11/26/22 aerosol inhaler Wheezing alprazolam 1 mg tablet 0.5 mg PO PRN PRN Anxiety 09/04/20 11/26/22 lactulose 10 gram/15 mL oral syrup 10 g PO QID 09/04/20 11/26/22 ondansetron HCl 4 mg tablet 4 mg PO PRN PRN Nausea 09/04/20 11/26/22 liraglutide 0.6 mg/0.1 mL (18 mg/3 See Rx Instructions .Route .COMPLEX 03/05/21 01/17/22 mL) subcutaneous pen injector ([employer]ictoza 3-Anatoliy) Allergies Allergy/AdvReac Type Severity Reaction Status Date / Time aztreonam [Azactam] Allergy Intermediate Unknown Verified 12/14/22 15:39 ciprofloxacin [Cipro] Allergy Intermediate Unknown Verified 12/14/22 15:39 esomeprazole [Nexium] Allergy Intermediate Unknown Verified 12/14/22 15:39 octreotide Allergy Intermediate Unknown Verified 12/14/22 15:39 sulfanilamide Allergy Intermediate Unknown Verified 12/14/22 15:39 erythromycin base Allergy Unknown Unknown Verified 12/14/22 15:39 Penicillins Allergy Unknown Unknown Verified 12/14/22 15:39 Sulfa (Sulfonamide Allergy Unknown Unknown Verified 12/14/22 15:39 Antibiotics) duloxetine Allergy Unknown Verified 12/14/22 15:39 magnesium Allergy Unknown Verified 12/14/22 15:39 nisoldipine Allergy Unknown Verified 12/14/22 15:39 prochlorperazine Allergy Unknown Verified 12/14/22 15:39 IVP dye Allergy Intermediate Unknown Uncoded 11/26/22 19:26 Contrast Media Allergy Unknown Unknown Uncoded 11/26/22 19:26 Review of Systems Review of Systems: All systems reviewed & are unremarkable except as noted in HPI and below PMFSH Past Medical History Medical History Chronic back pain Diabetes mellitus type 2 in obese GERD (gastroesophageal reflux disease) GI bleeding Hepatic encephalopathy Liver failure Varices, esophageal Surgical History Surgical History S/P TIPS (transjugular intrahepatic portosystemic shunt) Social History Social History Smoking status: Former smoker Alcohol intake: never Substance use: never Living arrangements: with family Exam Const: General: healthy appearing Nutritional Appearance: well nourished Orientation/consciousness: patient oriented x3 Resp: Effort & Inspection: normal respiratory effort Auscultation: clear to auscultation bilaterally Cardio: Rate: regular rate Rhythm: regular rhythm Extrem: Other: Tender 3rd and 4th left distal fingers with palpation and movement with mild swelling Psych: Mental Status: mental status grossly normal Affect: normal affect Course Course Emergency Course: patient took oxycodone prior to arrival that he has for his chronic back pain and his pain level is minimal, has decreased range of motion in his fingers x-ray performed and reviewed with patient. Vital Signs Vital signs: Vital Signs Temperature 36.4 C L 03/14/23 21:03 Pulse Rate 92
== END 2023-03-14 21:28 | disposition home or self-care (01) ==
PROVIDERS: Emergency Provider Emergency Medicine; PCP Physician Assistant
DX: S63.619A Unspecified sprain of unspecified finger, initial encounter (principal); W22.09XA Striking against other stationary object, initial encounter; E11.9 Type 2 diabetes mellitus without complications; K21.9 Gastro-esophageal reflux disease without esophagitis; M54.9 Dorsalgia, unspecified; G89.29 Other chronic pain; Z87.891 Personal history of nicotine dependence; Z79.891 Long term (current) use of opiate analgesic; Z79.51 Long term (current) use of inhaled steroids; Z79.85 Long-term (current) use of injectable non-insulin antidiabetic drugs
CPT/HCPCS: 73130; 99283

== ENCOUNTER 2023-06-20 09:07 | Emergency (ER) | payer BC, SELFPAY ==
[2023-06-20 09:11] VITALS: BP 146/78; PULSE 98; RESP 19; TEMP 37; O2SAT 99
--- NOTE | 2023-06-20 09:23 | ED.DENTAL ---
HPI - Dental/Oral General Chief complaint: Dental/Oral Stated complaint: L face swelling Time Seen by Provider: 06/20/23 09:23 Source: patient Mode of arrival: ambulatory Limitations: no limitations History of Present Illness HPI Narrative: patient presents with some left lower jaw swelling with some tooth decay and with left lower molar dental pain was surrounding gum inflammation with a tender submandibular gland and tender swelling of his left lower jaw area with no fever chills no shortness of breath. MD Complaint: tooth pain Teeth map: 1. Dental decay along with surrounding gum inflammation Onset (ago): day(s) Duration: constant Severity: severe Related Data Home Medications Medication Instructions Recorded Confirmed albuterol sulfate 90 mcg/actuation 2 puff inhalation Q8-10H PRN 02/19/20 06/20/23 aerosol inhaler Wheezing alprazolam 1 mg tablet 0.5 mg PO TID PRN Anxiety 09/04/20 06/20/23 lactulose 10 gram/15 mL oral syrup 10 g PO QID 09/04/20 06/20/23 ondansetron HCl 4 mg tablet 4 mg PO BID PRN Nausea 09/04/20 06/20/23 liraglutide 0.6 mg/0.1 mL (18 mg/3 See Rx Instructions .Route .COMPLEX 03/05/21 06/20/23 mL) subcutaneous pen injector (Victoza 3-Anatoliy) hydrocodone 7.5 mg-acetaminophen 1 tablet PO Q4-6H PRN Pain 06/20/23 06/20/23 325 mg tablet hydroxyzine HCl 25 mg tablet 25 mg PO QID 06/20/23 06/20/23 pregabalin 150 mg capsule 150 mg PO BID 06/20/23 06/20/23 trazodone 100 mg tablet 100 mg PO BID 06/20/23 06/20/23 Allergies Allergy/AdvReac Type Severity Reaction Status Date / Time aztreonam [Azactam] Allergy Intermediate Unknown Verified 06/20/23 09:20 ciprofloxacin [Cipro] Allergy Intermediate Unknown Verified 06/20/23 09:20 esomeprazole [Nexium] Allergy Intermediate Unknown Verified 06/20/23 09:20 octreotide Allergy Intermediate Unknown Verified 06/20/23 09:20 sulfanilamide Allergy Intermediate Unknown Verified 06/20/23 09:20 erythromycin base Allergy Unknown Unknown Verified 06/20/23 09:20 Penicillins Allergy Unknown Unknown Verified 06/20/23 09:20 Sulfa (Sulfonamide Allergy Unknown Unknown Verified 06/20/23 09:20 Antibiotics) duloxetine Allergy Unknown Verified 06/20/23 09:20 magnesium Allergy Unknown Verified 06/20/23 09:20 nisoldipine Allergy Unknown Verified 06/20/23 09:20 prochlorperazine Allergy Unknown Verified 06/20/23 09:20 IVP dye Allergy Intermediate Unknown Uncoded 06/20/23 09:20 Contrast Media Allergy Unknown Unknown Uncoded 06/20/23 09:20 Review of Systems Review of Systems: All systems reviewed & are unremarkable except as noted in HPI and below PMFSH Past Medical History Medical History Chronic back pain Diabetes mellitus type 2 in obese GERD (gastroesophageal reflux disease) GI bleeding Hepatic encephalopathy Liver failure Varices, esophageal Surgical History Surgical History S/P TIPS (transjugular intrahepatic portosystemic shunt) Social History Social History Smoking status: Former smoker Alcohol intake: never Substance use: never Living arrangements: with family Exam Const: General: healthy appearing and no acute distress Nutritional Appearance: well nourished Orientation/consciousness: patient oriented x3 HENMT: Other: Left lower jaw swelling with a left lower submandibular gland swelling and tenderness Neck: Neck: lymphadenopathy Chest: Chest palpation & inspection: normal inspection of the chest Resp: Effort & Inspection: normal respiratory effort Auscultation: clear to auscultation bilaterally Cardio: Rate: regular rate Rhythm: regular rhythm Skin: General skin exam: normal color Neuro: General: patient oriented x3 Course Course Emergency Course: patient with some lower left molar tooth decay with surrounding gum inflammation and submandibular gland
--- NOTE | 2023-06-20 09:32 | PC.NURSE ---
On 06/20/23, the student, Olya Sutton, provided care and completed [facility] documentation on this patient. I have reviewed the student's documentation and agree with the findings.
[2023-06-20 09:35] VITALS: BP 146/78; PULSE 98; RESP 19; TEMP 37; O2SAT 99
== END 2023-06-20 09:35 | disposition home or self-care (01) ==
PROVIDERS: Emergency Provider Emergency Medicine; PCP Physician Assistant
DX: K02.9 Dental caries, unspecified (principal); K04.7 Periapical abscess without sinus; E11.9 Type 2 diabetes mellitus without complications; Z79.891 Long term (current) use of opiate analgesic; Z79.899 Other long term (current) drug therapy; Z87.891 Personal history of nicotine dependence
CPT/HCPCS: 99283

== ENCOUNTER 2023-08-13 09:01 | Outpatient (RCR) | payer OTHER, SELFPAY ==
--- NOTE | 2023-08-13 13:20 | OPREHPOC ---
Outpatient Therapy Plan of Care This is a Multidisciplinary Plan of Care that may contain components documented by all disciplines (PT, OT, and ST.) PT Problem 1 PT Problem #1 Knowledge Deficit PT Goal 1 Goal Patient to demonstrate independence with HEP Target Visit 5 PT Problem 2 PT Problem #2 Pain PT Goal 1 Goal 1. Patient to report highest pain at 2/10 2. Patient to report ability to sleep with no disturbance due to low back pain Target Visit 10 PT Problem 3 PT Problem #3 Impaired Strength PT Goal 1 Goal Patient to demonstrate 5/5 B LE strength to return to ambulating for grocery shopping with no increase in pain Target Visit 10 PT Problem 4 PT Problem #4 Impaired Functional Mobil PT Goal 1 Goal 1. Patient to demonstrate 20% improvement on Back Index 2. 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 Patient to demonstrate less than 20% disability on Back Index 2. Patient to lift 20# from floor to return to house hold tasks at PLOF Target Visit 10
--- NOTE | 2023-08-13 13:20 | PTOPEVAL1 ---
Assessment and note entered by Fabienne Muñoz DPT Evaluation Information Assessment Status Evaluation Diagnosis low back pain Onset 08/04/23 Subjective Information patient reports chronic back pain since 2011. He reports that initially when pain started he was going to get surgery in [place] but then moved to [place] and has not been able to get surgery. He reports he has liver disease and this is another reason he has not undergone surgery. Patient reports he fell at [facility] a few months ago and since then pain has increased and pain has shifted from L LE to R LE. He reports pain stops at the hip. Patient reports difficulty with bending to picker objects, walking prolonged distances to grocery shop, and prolonged positioning. He reports pain with driving. He reports had injections a while back with no relief. He reports due to A1C being elevated he has not been able to get another injection. He is also waiting to be put on a liver transplant list. Patient is currently not working. He returns to MD today for follow up. Reported Pain Level Pain Score 8: Self Report Assessment PT Clinical Summary Mr. Curry is a 52 year old male who presents to PT with low back pain. He demonstrates decreased lumbar ROM, decreased B LE strength and decreased B LE flexibility with sign and symptoms consistent with disc involvement with degenerative changes. He has difficulty with picking up objects from the floor, walking to grocery shop and sitting for prolonged periods especially when driving. He would benefit from skilled PT to address impairments and return to PLOF. Plan of Care Interventions Electrical Stimulation,Gait Training,Hot Pack/Cold Pack,Manual Therapy,Mechanical Traction,Neuro Re- education,Patient/Caregiver Educati,Therapeutic Activities,Therapeutic Exercise PT Services Indicated Yes Treatment Frequency and 2x weekly for 10 visits Duration These treatments will address the objective and functional deficits as defined above. The patient will be advanced safely and appropriately in order for the patient to progress towards his/her prior level of function. Additional exercises will be introduced and as well as a comprehensive home exercise program upon discharge, if needed, ?to ensure carryover of functional gains achieved in the clinic. This treatment plan has been reviewed and agreement upon by the patient.
== END 2023-08-13 20:00 | disposition home or self-care (01) ==
LOC: CHSPT 09:01
PROVIDERS: PCP Physician Assistant; Visit Provider Physician Assistant
DX: M54.50 Low back pain, unspecified (principal)
CPT/HCPCS: 97014; 97110; 97161; G0283

== ENCOUNTER 2023-08-17 15:08 | Emergency (ER) | payer OTHER, SELFPAY ==
--- NOTE | ~2023-08-17 | XR_ITS ---
EXAMINATION: XR knee RT 3V DATE: 08/17/2023 15:50 INDICATION: Right knee injury. TECHNIQUE: 3 views of right knee were obtained. COMPARISON: None. FINDINGS: Bone alignment is normal. No fracture. There is mild osteoarthritis of lateral and patellof emoral compartments. No knee joint effusion. IMPRESSION: 1. Mild right knee osteoarthritis. Reviewed, dictated and finalized at location E.
--- NOTE | ~2023-08-17 | CT_ITS ---
EXAMINATION: CT lumbar spine wo con DATE: 08/17/2023 16:18 INDICATION: Right foot numbness and tingling. Fall. TECHNIQUE: Computed tomography (CT) of the lumbar spine was performed without intravenous contrast. A utomated exposure control and iterative reconstruction technique were employed. The dose-length produ ct was 954.32 mGy-cm. COMPARISON: None FINDINGS: There are gallstones in the gallbladder. Bone alignment is normal. There is mild chronic an terior wedging of T12 vertebral body. There is mildly decreased disc height at L1-L2. The following d isc levels are specifically discussed: L1-L2: The disc does not extend beyond the endplate margin. There is moderate right and mild left fac et joint osteoarthritis. There is mild right neural foraminal stenosis. There is no central canal mercedes nosis. L2-L3: The disc does not extend beyond the endplate margin. There is moderate bilateral facet joint o steoarthritis. There is mild bilateral neural foraminal stenosis. There is no central canal stenosis. L3-L4: The disc is bulging. There is mild right and moderate left facet joint osteoarthritis. There i s mild bilateral neural foraminal stenosis. There is mild central canal stenosis. L4-L5: The disc is bulging. There is moderate right and mild left facet joint osteoarthritis. There i s moderate right and mild left neural foraminal stenosis. There is mild central canal stenosis. L5-S1: The disc does not extend beyond the endplate margin. There is moderate bilateral facet joint o steoarthritis. There is no neural foraminal stenosis. There is no central canal stenosis. IMPRESSION: 1. Mild lumbar spondylosis. Reviewed, dictated and finalized at location E. IMPRESSION: 1. Mild lumbar spondylosis.
--- NOTE | ~2023-08-17 | XR_ITS ---
EXAMINATION: XR foot RT min 3V DATE: 08/17/2023 15:50 INDICATION: Right foot pain. TECHNIQUE: 3 views of right foot were obtained. COMPARISON: None. FINDINGS: Bone alignment is normal. No fracture. There is mild osteoarthritis of talonavicular joint, first tarsometatarsal joint, and first metatarsophalangeal joint. There are is an enthesophyte at po sterior aspect of calcaneal tuberosity. There is heterotopic ossification dorsal to head of the talus . IMPRESSION: 1. Mild polyarticular osteoarthritis. Reviewed, dictated and finalized at location E.
--- NOTE | ~2023-08-17 | XR_ITS ---
EXAMINATION: XR ankle RT min 3V DATE: 08/17/2023 15:49 INDICATION: Right ankle injury. Fall. TECHNIQUE: 3 views of right ankle were obtained. COMPARISON: None. FINDINGS: Bone alignment is normal. No fracture. Joint spaces are normal. There is ankle soft tissue swelling. IMPRESSION: 1. No fracture. Reviewed, dictated and finalized at location E. IMPRESSION: 1. No fracture.
[2023-08-17 15:22] VITALS: BP 109/63; PULSE 99; RESP 18; TEMP 36.8; O2SAT 98
--- NOTE | 2023-08-17 15:31 | ED.GENADULT ---
HPI - General Adult General Chief complaint: Fall Stated complaint: fall Time Seen by Provider: 08/17/23 15:16 History of Present Illness HPI narrative: This is a 52-year-old male with history of chronic pain and liver disease presenting after a fall. He was cleaning off his porch with a hose when he slipped and fell. He does not remember exactly how he slid down the stairs but his leg got caught underneath him he is now has pain in his foot knee and lower back. This was a mechanical fall with no prodromal symptoms. No head trauma, no loss of consciousness. Related Data Home Medications Medication Instructions Recorded Confirmed albuterol sulfate 90 mcg/actuation 2 puff inhalation Q8-10H PRN 02/19/20 08/17/23 aerosol inhaler Wheezing alprazolam 1 mg tablet 0.5 mg PO TID PRN Anxiety 09/04/20 08/17/23 ondansetron HCl 4 mg tablet 4 mg PO BID PRN Nausea 09/04/20 08/17/23 liraglutide 0.6 mg/0.1 mL (18 mg/3 See Rx Instructions .Route .COMPLEX 03/05/21 08/17/23 mL) subcutaneous pen injector ([employer] 3-Anatoliy) hydroxyzine HCl 25 mg tablet 25 mg PO QID 06/20/23 08/17/23 pregabalin 150 mg capsule 150 mg PO BID 06/20/23 08/17/23 trazodone 100 mg tablet 100 mg PO BID 06/20/23 08/17/23 hydrocodone-acetaminophen 10 - 325 mg 08/17/23 Allergies Allergy/AdvReac Type Severity Reaction Status Date / Time aztreonam [Azactam] Allergy Intermediate Unknown Verified 08/17/23 15:14 ciprofloxacin [Cipro] Allergy Intermediate Unknown Verified 08/17/23 15:14 esomeprazole [Nexium] Allergy Intermediate Unknown Verified 08/17/23 15:14 octreotide Allergy Intermediate Unknown Verified 08/17/23 15:14 sulfanilamide Allergy Intermediate Unknown Verified 08/17/23 15:14 erythromycin base Allergy Unknown Unknown Verified 08/17/23 15:14 Penicillins Allergy Unknown Unknown Verified 08/17/23 15:14 Sulfa (Sulfonamide Allergy Unknown Unknown Verified 08/17/23 15:14 Antibiotics) duloxetine Allergy Unknown Verified 08/17/23 15:14 magnesium Allergy Unknown Verified 08/17/23 15:14 nisoldipine Allergy Unknown Verified 08/17/23 15:14 prochlorperazine Allergy Unknown Verified 08/17/23 15:14 IVP dye Allergy Intermediate Unknown Uncoded 08/17/23 15:14 Contrast Media Allergy Unknown Unknown Uncoded 08/17/23 15:14 PMF Past Medical History Medical History Chronic back pain Diabetes mellitus type 2 in obese GERD (gastroesophageal reflux disease) GI bleeding Hepatic encephalopathy Liver failure Varices, esophageal Surgical History Surgical History S/P TIPS (transjugular intrahepatic portosystemic shunt) Social History Social History Smoking status: Former smoker Alcohol intake: never Substance use: never Living arrangements: with family Exam Narrative: APPEARANCE: No apparent distress. Head: atraumatic. EYES: EOMI, NOSE: Atraumatic NECK: Trachea midline RESPIRATORY: No increased rate of breathing CARDIOVASCULAR: RRR, ABDOMINAL: Non-distended, soft nontender MUSCULOSKELETAl: no obvious deformities to the right foot or right knee. Pain over the tarsal bones with her right foot. Cap refill intact. Patient able to wiggle his toes but reports numbness. Can feel me touching him. strong pulses and normal cap refill NEURO: Alert. Moving 4/4 extremities SKIN:: Warm, dry. Normal color PSYCHIATRIC: Normal affect Course Vital Signs Vital signs: Vital Signs Temperature 98.2 F 08/17/23 15:22 Pulse Rate 99 08/17/23 15:22 Respiratory Rate 18 08/17/23 15:22 Blood Pressure 109/63 08/17/23 15:22 Pulse Oximetry 98 08/17/23 15:22 Oxygen Delivery Room Air 08/17/23 15:22 Temperature 98.2 F 08/17/23 15:22 Pulse Rate 99 08/17/23 15:22 Respiratory Rate 18 08/17/23 15:22 Blood Pressure 109/63 08/17/23 15:22 Pulse Oximetry 98 08/17/23 15
[2023-08-17] MEDS: HYDROcodone/acetaminophen (*CRX) 5-325 MG TABLET 2 TAB PO (15:33)
[2023-08-17] MEDS: methocarbamoL 750 MG TABLET 1500 MG PO (17:16)
[2023-08-17 17:29] VITALS: BP 115/65; PULSE 95; RESP 18; O2SAT 97
== END 2023-08-17 17:32 | disposition home or self-care (01) ==
PROVIDERS: Emergency Provider Emergency Medicine; PCP Physician Assistant
DX: G89.29 Other chronic pain (principal); W10.9XXA Fall (on) (from) unspecified stairs and steps, initial encounter; E11.9 Type 2 diabetes mellitus without complications; E66.9 Obesity, unspecified; Z68.33 Body mass index [BMI] 33.0-33.9, adult; K21.9 Gastro-esophageal reflux disease without esophagitis; Z87.891 Personal history of nicotine dependence
CPT/HCPCS: 72131; 73562; 73610; 73630; 99284; A9270

== ENCOUNTER 2023-09-10 07:39 | Emergency (ER) | payer OTHER, SELFPAY ==
[2023-09-10 07:40] VITALS: BP 159/79; PULSE 72; RESP 20; TEMP 36.9; O2SAT 95
--- NOTE | 2023-09-10 07:51 | ED.SKABFB ---
HPI - Skin/Abscess/Foreign Bdy General Chief complaint: Skin/Abscess/Foreign Body Stated complaint: rash Source: patient and family Mode of arrival: ambulatory Limitations: no limitations History of Present Illness HPI narrative: this is a 53-year-old male that presents with a patch of rash on his abdomen that is red mildly itchy with no fever chills no chest pain no shortness of breath no nausea vomiting or abdominal pain. Patient is diabetic and has had higher blood sugar readings and currently on Lantus. MD complaint: rash Onset (ago): day(s) Severity: mild Related Data Home Medications Medication Instructions Recorded Confirmed albuterol sulfate 90 mcg/actuation 2 puff inhalation Q8-10H PRN 02/19/20 08/17/23 aerosol inhaler Wheezing alprazolam 1 mg tablet 0.5 mg PO TID PRN Anxiety 09/04/20 08/17/23 ondansetron HCl 4 mg tablet 4 mg PO BID PRN Nausea 09/04/20 08/17/23 liraglutide 0.6 mg/0.1 mL (18 mg/3 See Rx Instructions .Route .COMPLEX 03/05/21 08/17/23 mL) subcutaneous pen injector ([employer] 3-Anatoliy) hydroxyzine HCl 25 mg tablet 25 mg PO QID 06/20/23 08/17/23 pregabalin 150 mg capsule 150 mg PO BID 06/20/23 08/17/23 trazodone 100 mg tablet 100 mg PO BID 06/20/23 08/17/23 hydrocodone-acetaminophen 10 - 325 mg 08/17/23 Allergies Allergy/AdvReac Type Severity Reaction Status Date / Time aztreonam [Azactam] Allergy Intermediate Unknown Verified 08/17/23 15:14 ciprofloxacin [Cipro] Allergy Intermediate Unknown Verified 08/17/23 15:14 esomeprazole [Nexium] Allergy Intermediate Unknown Verified 08/17/23 15:14 octreotide Allergy Intermediate Unknown Verified 08/17/23 15:14 sulfanilamide Allergy Intermediate Unknown Verified 08/17/23 15:14 erythromycin base Allergy Unknown Unknown Verified 08/17/23 15:14 Penicillins Allergy Unknown Unknown Verified 08/17/23 15:14 Sulfa (Sulfonamide Allergy Unknown Unknown Verified 08/17/23 15:14 Antibiotics) duloxetine Allergy Unknown Verified 08/17/23 15:14 magnesium Allergy Unknown Verified 08/17/23 15:14 nisoldipine Allergy Unknown Verified 08/17/23 15:14 prochlorperazine Allergy Unknown Verified 08/17/23 15:14 IVP dye Allergy Intermediate Unknown Uncoded 08/17/23 15:14 Contrast Media Allergy Unknown Unknown Uncoded 08/17/23 15:14 Review of Systems Review of Systems: All systems reviewed & are unremarkable except as noted in HPI and below PMFSH Past Medical History Medical History Chronic back pain Diabetes mellitus type 2 in obese GERD (gastroesophageal reflux disease) GI bleeding Hepatic encephalopathy Liver failure Varices, esophageal Surgical History Surgical History S/P TIPS (transjugular intrahepatic portosystemic shunt) Social History Social History Smoking status: Former smoker Alcohol intake: never Substance use: never Living arrangements: with family Exam Const: General: healthy appearing and no acute distress Nutritional Appearance: well nourished and obese Orientation/consciousness: patient oriented x3 Limitations: no limitations Neck: Neck: normal visual inspection, no lymphadenopathy and no meningeal signs Chest: Chest palpation & inspection: normal inspection of the chest Resp: Effort & Inspection: normal respiratory effort Auscultation: clear to auscultation bilaterally Cardio: Rate: regular rate Rhythm: regular rhythm GI: Auscultation: normal bowel sounds : General: Yes bladder normal to palpation Skin: Wounds: wounds noted Neuro: General: patient oriented x3 Course Course Emergency Course: Patient with elevated blood sugar readings advised patient to increase his Lantus [id number] at night and add 10units of Lantus in morning follow with his primary, further rash advised patient to use triamcinolone ointment [id number] 3 times a day x1 week
== END 2023-09-10 08:02 | disposition home or self-care (01) ==
LOC: CHSED 08:02
PROVIDERS: Emergency Provider Emergency Medicine; PCP Physician Assistant
DX: L25.9 Unspecified contact dermatitis, unspecified cause (principal); E11.65 Type 2 diabetes mellitus with hyperglycemia; K21.9 Gastro-esophageal reflux disease without esophagitis; Z79.51 Long term (current) use of inhaled steroids; Z79.4 Long term (current) use of insulin
CPT/HCPCS: 99283

== ENCOUNTER 2023-11-12 10:09 | Emergency (ER) | payer OTHER, SELFPAY ==
--- NOTE | ~2023-11-12 | XR_ITS ---
Portable chest x-ray Comparison: 03/13/2021 Clinical History: Hyperglycemia Findings: Lungs are clear, without focal consolidation or pleural effusion. Cardiomediastinal silho uette is stable. Bones and soft tissues are unremarkable. Impression: Clear lungs. Reviewed, dictated and finalized at location . Impression: Clear lungs.
[2023-11-12 10:15] LABS: Glucose Point of Care > 450 mg/dl (65-105)
[2023-11-12 10:16] VITALS: BP 149/78; PULSE 80; RESP 18; TEMP 36.4; O2SAT 96
[2023-11-12 10:30] VITALS: BP 134/64; PULSE 70; RESP 17; O2SAT 97
[2023-11-12] MEDS: ONDANSETRON INJ 4 MG/2 ML VIAL IV PUSH (10:44)
[2023-11-12] MEDS: SODIUM CHLORIDE 0.9% IV 1,000 ML 999 ML IV CONT (10:44)
[2023-11-12 10:49] LABS: Hematocrit 44.4 % (40.0-54.0); Hemoglobin 15.8 g/dL (14.0-18.0); Immature Platelet Fraction Pct 3.8 % (1.0-7.0); Mean Corpuscular HGB Conc 35.6 g/dL (32-36); Mean Corpuscular Hemoglobin 27.7 pg (27.0-31.0); Mean Corpuscular Volume 77.8 fL (78.0-102.0); Mean Platelet Volume 10.9 fl (8.7-11.0); Platelet Count Result 76 K/mm3 (150-420); Red Blood Count 5.71 M/mm3 (4.70-6.10); Red Cell Distribution Width 16.9 % (11.6-14.4); White Blood Count 3.6 K/mm3 (4.8-10.8)
[2023-11-12 10:50] LABS: Appearance Urine Clear (Clear); Bilirubin Urine Negative (Negative); Blood Urine Negative (Negative); Color Urine Light Yellow (Yellow); Glucose Urine UA 3+ (Negative); Ketones Urine Negative (Negative); Leukocyte Esterase Ur Negative LEU/UL (Negative); Nitrate Urine Negative (Negative); Protein Urine Negative (Negative); Specific Grav Ur <= 1.005 (1.010-1.020); pH Urine 5.5 (5.0-8.0)
[2023-11-12 10:55] LABS: Add Urine Microscopic? YES; Bacteria Urine Rare /hpf; RBC Urine None seen /hpf (0-2); WBC Urine None seen /hpf (0-3)
[2023-11-12 11:00] VITALS: BP 135/97; PULSE 91; RESP 16; O2SAT 97
[2023-11-12 11:05] LABS: Alanine Aminotransferase 17 U/L (16-63); Albumin Level 3.5 g/dL (3.4-5.0); Alkaline Phosphatase 97 U/L (46-116); Anion Gap 10 mmol/L (4-12); Aspartate Amino Transferase 20 U/L (15-37); Bilirubin,Total 2.8 mg/dL (0.00-1.00); Blood Urea Nitrogen 13 mg/dL (7-18); Calcium 9.2 mg/dL (8.5-10.1); Carbon Dioxide 27 mmol/L (21-32); Chloride 97 mmol/L (98-108); Estimated CRCL calculation 75 ml/min; Estimated Glomerular Filt Rate > 60; Magnesium 1.6 mg/dL (1.8-2.4); Osmolality Calculated 297 mOsm/kg (285-295); Phosphorus 3.2 mg/dL (2.6-4.7); Sodium 134 mmol/L (136-145); Total Protein 7.1 g/dL (6.4-8.2)
[2023-11-12 11:07] LABS: Band Neutrophils Percent 0 % (0-6); Glucose 441 mg/dL (70-99); Lymphocytes Absolute Manual 0.86 K/mm3 (1.1-4.5); Lymphocytes Percent Manual 24 % (18-44); Monocytes Absolute Manual 0.21 K/mm3 (0.1-0.90); Monocytes Percent Manual 6 % (3-9); Neutrophils Absolute Manual 2.34 K/mm3 (1.3-6.7); Neutrophils Percent Manual 65 % (46-73); Total Cells Counted 10
[2023-11-12 11:08] LABS: Basophils Absolute Manual 0.03 K/mm3 (0-0.1); Basophils Percent Manual 1 % (0-1); Eosinophils Absolute Manual 0.14 K/mm3 (0.02-0.50); Eosinophils Percent Manual 4 % (1-6); Platelet Estimate Decreased (Adequate)
[2023-11-12 11:30] VITALS: BP 134/99; PULSE 73; RESP 17; O2SAT 97
--- NOTE | 2023-11-12 11:30 | ED.RECABL ---
HPI - Recheck/Abnormal Lab/Rx General Chief Complaint: Recheck/Abnormal Lab/Rx Stated Complaint: elevated glucose. Time Seen by Provider: 11/12/23 10:09 Source: patient and family Mode of arrival: ambulatory Limitations: no limitations History of Present Illness HPI narrative: this is a 53-year-old male that presents with some elevated blood glucose levels as monitored by his Dexcom. Otherwise no abdominal pain no fever chills chest pain no shortness of breath patient does have some nausea but no dysuria no flank pain. . Patient currently on insulin sliding scale and Lantus, failed to take his insulin dose last night. Related Data Home Medications Medication Instructions Recorded Confirmed albuterol sulfate 90 mcg/actuation 2 puff inhalation Q8-10H PRN 02/19/20 08/17/23 aerosol inhaler Wheezing alprazolam 1 mg tablet 0.5 mg PO TID PRN Anxiety 09/04/20 08/17/23 ondansetron HCl 4 mg tablet 4 mg PO BID PRN Nausea 09/04/20 08/17/23 liraglutide 0.6 mg/0.1 mL (18 mg/3 See Rx Instructions .Route .COMPLEX 03/05/21 08/17/23 mL) subcutaneous pen injector ([employer] 3-Anatoliy) hydroxyzine HCl 25 mg tablet 25 mg PO QID 06/20/23 08/17/23 pregabalin 150 mg capsule 150 mg PO BID 06/20/23 08/17/23 trazodone 100 mg tablet 100 mg PO BID 06/20/23 08/17/23 hydrocodone-acetaminophen 10 - 325 mg 08/17/23 Allergies Allergy/AdvReac Type Severity Reaction Status Date / Time aztreonam [Azactam] Allergy Intermediate Unknown Verified 11/12/23 10:10 ciprofloxacin [Cipro] Allergy Intermediate Unknown Verified 11/12/23 10:10 esomeprazole [Nexium] Allergy Intermediate Unknown Verified 11/12/23 10:10 octreotide Allergy Intermediate Unknown Verified 11/12/23 10:10 sulfanilamide Allergy Intermediate Unknown Verified 11/12/23 10:10 erythromycin base Allergy Unknown Unknown Verified 11/12/23 10:10 Penicillins Allergy Unknown Unknown Verified 11/12/23 10:10 Sulfa (Sulfonamide Allergy Unknown Unknown Verified 11/12/23 10:10 Antibiotics) duloxetine Allergy Unknown Verified 11/12/23 10:10 magnesium Allergy Unknown Verified 11/12/23 10:10 nisoldipine Allergy Unknown Verified 11/12/23 10:10 prochlorperazine Allergy Unknown Verified 11/12/23 10:10 IVP dye Allergy Intermediate Unknown Uncoded 11/12/23 10:10 Contrast Media Allergy Unknown Unknown Uncoded 11/12/23 10:10 Review of Systems Review of Systems: All systems reviewed & are unremarkable except as noted in HPI and below PMFSH Past Medical History Medical History Chronic back pain Diabetes mellitus type 2 in obese GERD (gastroesophageal reflux disease) GI bleeding Hepatic encephalopathy Liver failure Varices, esophageal Surgical History Surgical History S/P TIPS (transjugular intrahepatic portosystemic shunt) Social History Social History Smoking status: Former smoker Alcohol intake: never Substance use: never Living arrangements: with family Exam Const: General: healthy appearing Orientation/consciousness: patient oriented x3 Limitations: no limitations Neck: Neck: normal visual inspection Chest: Chest palpation & inspection: normal inspection of the chest Resp: Effort & Inspection: normal respiratory effort Auscultation: clear to auscultation bilaterally Cardio: Rate: regular rate Rhythm: regular rhythm GI: GI Palp: Yes Soft to palpation Auscultation: normal bowel sounds : General: Yes bladder normal to palpation Back/Spine/Pelvis: Back: no CVA tenderness Skin: General skin exam: normal color Rashes: no rashes Neuro: General: patient oriented x3 and moves all extremities Extrem: General: normal to inspection, no clubbing, cyanosis or edema and no pedal edema Course Course Emergency Course: Patient dialysis infection chest x-ray no acute cardiopulmonary abnormalities, his glucose le
[2023-11-12 11:36] LABS: Glucose Point of Care 372 mg/dl (65-105)
--- NOTE | 2023-11-12 11:47 | PC.NURSE ---
RN went to give patient his insulin, he checked his dexcom and his glucose levels are still dropping and according to his dexcom are now at 342. Patient states he thinks the iv insulin will drop him to low and refuses at this time. ERP made aware. patient states he can manage glucose from here at home.
[2023-11-12 11:56] VITALS: BP 136/74; PULSE 70; RESP 16; TEMP 36.6; O2SAT 97
== END 2023-11-12 11:56 | disposition home or self-care (01) ==
PROVIDERS: Emergency Provider Emergency Medicine; PCP Physician Assistant
DX: E11.65 Type 2 diabetes mellitus with hyperglycemia (principal); Z79.4 Long term (current) use of insulin
CPT/HCPCS: 36415; 71045; 80053; 81001; 82948; 83735; 84100; 85025; 85055; 96361; 96374; 99284; J1815; J2405; J7030

== ENCOUNTER 2024-01-14 09:40 | Emergency (ER) | payer OTHER, SELFPAY ==
--- NOTE | ~2024-01-14 | XR_ITS ---
EXAMINATION: XR chest 1V portable DATE: 01/14/2024 10:09 INDICATION: Hyperglycemia TECHNIQUE: frontal view of the chest was obtained. COMPARISON: Chest radiograph dated 11/12/2023 FINDINGS: The lungs remain clear with no focal airspace opacities, pulmonary edema, pleural effusion or pneumot horax. Heart size is normal with prominent left paracardial fat pad. IMPRESSION: 1. No acute cardiopulmonary disease. Reviewed, dictated and finalized at location B.
[2024-01-14 09:46] VITALS: BP 134/74; PULSE 92; RESP 18; TEMP 36.7; O2SAT 95
[2024-01-14 09:46] LABS: Glucose Point of Care > 450 mg/dl (65-105)
[2024-01-14 10:15] LABS: Basophils Absolute Auto 0.06 K/mm3 (0.00-0.10); Basophils Percent Auto 1.4 % (0.0-1.0); Eosinophils Absolute Auto 0.13 K/mm3 (0.02-0.50); Hematocrit 45.4 % (40.0-54.0); Hemoglobin 16.5 g/dL (14.0-18.0); Immature Granulocyte Absolute 0.02 K/mm3 (0.00-0.00); Immature Granulocyte Percent A 0.5 % (0.0-0.0); Immature Platelet Fraction Pct 4.8 % (1.0-7.0); Lymphocytes Absolute Auto 0.66 K/mm3 (1.10-4.50); Lymphocytes Percent Auto 15.4 % (18.0-42.0); Mean Corpuscular HGB Conc 36.3 g/dL (32-36); Mean Corpuscular Hemoglobin 29.3 pg (27.0-31.0); Mean Corpuscular Volume 80.6 fL (78.0-102.0); Monocytes Percent Auto 9.3 % (2.0-11.0); Neutrophils Absolute Auto 3.02 K/mm3 (1.70-7.20); Neutrophils Percent Auto 70.4 % (50.0-70.0); Platelet Count Result 85 K/mm3 (150-420); Red Blood Count 5.63 M/mm3 (4.70-6.10); Red Cell Distribution Width 17.3 % (11.6-14.4); White Blood Count 4.3 K/mm3 (4.8-10.8)
[2024-01-14] MEDS: SODIUM CHLORIDE 0.9% IV 1,000 ML 999 ML IV CONT (10:16)
[2024-01-14 10:23] LABS: Alanine Aminotransferase 18 U/L (16-63); Albumin Level 3.7 g/dL (3.4-5.0); Alkaline Phosphatase 108 U/L (46-116); Anion Gap 6 mmol/L (4-12); Aspartate Amino Transferase 21 U/L (15-37); Bilirubin,Total 2.9 mg/dL (0.00-1.00); Blood Urea Nitrogen 13 mg/dL (7-18); Calcium 9.3 mg/dL (8.5-10.1); Carbon Dioxide 30 mmol/L (21-32); Chloride 98 mmol/L (98-108); Estimated CRCL calculation 82 ml/min; Estimated Glomerular Filt Rate > 60; Magnesium 1.7 mg/dL (1.8-2.4); Osmolality Calculated 297 mOsm/kg (285-295); Phosphorus 3.4 mg/dL (2.6-4.7); Sodium 134 mmol/L (136-145); Total Protein 7.4 g/dL (6.4-8.2)
[2024-01-14 10:24] LABS: Glucose 432 mg/dL (70-99)
[2024-01-14 10:28] LABS: Lactic Acid Reflex 2.4 mmol/L (0.4-2.0)
--- NOTE | 2024-01-14 10:30 | ED.GENADULT ---
HPI - General Adult General Chief complaint: Unspecified Stated complaint: hyperglycemia Source: patient Mode of arrival: ambulatory Limitations: no limitations History of Present Illness HPI narrative: this is a 53-year-old male that presents with some hyperglycemia I did call his primary and was advised to come to the emergency department, he had a reading of over 500 did take his short-acting insulin at 8 this morning. Patient otherwise initially was feeling jittery but currently asymptomatic, no fever chills no chest pain no nausea vomiting no abdominal pain no flank pain or dysuria. Onset (ago): hour(s) Severity: moderate Related Data Home Medications Medication Instructions Recorded Confirmed albuterol sulfate 90 mcg/actuation 2 puff inhalation Q8-10H PRN 02/19/20 08/17/23 aerosol inhaler Wheezing alprazolam 1 mg tablet 0.5 mg PO TID PRN Anxiety 09/04/20 08/17/23 ondansetron HCl 4 mg tablet 4 mg PO BID PRN Nausea 09/04/20 08/17/23 liraglutide 0.6 mg/0.1 mL (18 mg/3 See Rx Instructions .Route .COMPLEX 03/05/21 08/17/23 mL) subcutaneous pen injector ([employer] 3-Anatoliy) hydroxyzine HCl 25 mg tablet 25 mg PO QID 06/20/23 08/17/23 pregabalin 150 mg capsule 150 mg PO BID 06/20/23 08/17/23 trazodone 100 mg tablet 100 mg PO BID 06/20/23 08/17/23 hydrocodone-acetaminophen 10 - 325 mg 08/17/23 Allergies Allergy/AdvReac Type Severity Reaction Status Date / Time aztreonam [Azactam] Allergy Intermediate Unknown Verified 11/12/23 10:10 ciprofloxacin [Cipro] Allergy Intermediate Unknown Verified 11/12/23 10:10 esomeprazole [Nexium] Allergy Intermediate Unknown Verified 11/12/23 10:10 octreotide Allergy Intermediate Unknown Verified 11/12/23 10:10 sulfanilamide Allergy Intermediate Unknown Verified 11/12/23 10:10 erythromycin base Allergy Unknown Unknown Verified 11/12/23 10:10 Penicillins Allergy Unknown Unknown Verified 11/12/23 10:10 Sulfa (Sulfonamide Allergy Unknown Unknown Verified 11/12/23 10:10 Antibiotics) duloxetine Allergy Unknown Verified 11/12/23 10:10 magnesium Allergy Unknown Verified 11/12/23 10:10 nisoldipine Allergy Unknown Verified 11/12/23 10:10 prochlorperazine Allergy Unknown Verified 11/12/23 10:10 IVP dye Allergy Intermediate Unknown Uncoded 11/12/23 10:10 Contrast Media Allergy Unknown Unknown Uncoded 11/12/23 10:10 Review of Systems Review of Systems: All systems reviewed & are unremarkable except as noted in HPI and below PMFSH Past Medical History Medical History Chronic back pain Diabetes mellitus type 2 in obese GERD (gastroesophageal reflux disease) GI bleeding Hepatic encephalopathy Liver failure Varices, esophageal Surgical History Surgical History S/P TIPS (transjugular intrahepatic portosystemic shunt) Social History Social History Smoking status: Former smoker Alcohol intake: never Substance use: never Living arrangements: with family Exam Const: General: cooperative, healthy appearing, comfortable, no acute distress, well developed, alert, awake and Physically active Nutritional Appearance: average body habitus and well nourished Orientation/consciousness: oriented to person, oriented to place, oriented to time and patient oriented x3 HENMT: Mouth: Yes Normal oral and palatal mucosa present Eyes: General: appearance normal, both eyes and all related structures Neck: Neck: normal visual inspection, full ROM, no lymphadenopathy and no meningeal signs Chest: Chest palpation & inspection: normal inspection of the chest Resp: Effort & Inspection: normal respiratory effort and able to speak in complete sentences Auscultation: clear to auscultation bilaterally Cardio: Jugular venous distension: no JVD Palpation: normal PMI Rate: regular rate Rhythm: regular rhythm Heart sounds: S1 normal hear
[2024-01-14 10:36] VITALS: BP 115/71; PULSE 84; RESP 18; O2SAT 93
[2024-01-14 10:53] LABS: Add Urine Microscopic? NO; Appearance Urine Clear (Clear); Bilirubin Urine Negative (Negative); Blood Urine Negative (Negative); Color Urine Yellow (Yellow); Glucose Urine UA 4+ (Negative); Ketones Urine Negative (Negative); Leukocyte Esterase Ur Negative LEU/UL (Negative); Nitrate Urine Negative (Negative); Protein Urine Negative (Negative); Specific Grav Ur 1.015 (1.010-1.020); Urobilinogen Urine Normal mg/dL (0.2-1.0)
[2024-01-14 10:59] LABS: Glucose Point of Care 324 mg/dl (65-105)
[2024-01-14 11:12] VITALS: BP 131/72; PULSE 76; RESP 20; TEMP 36.8; O2SAT 94
[2024-01-14 13:10] LABS: Reflex Lactic Acid Yes or No Add Lactic
== END 2024-01-14 11:12 | disposition home or self-care (01) ==
PROVIDERS: Emergency Provider Emergency Medicine; PCP Physician Assistant
DX: E11.65 Type 2 diabetes mellitus with hyperglycemia (principal); Z87.891 Personal history of nicotine dependence
CPT/HCPCS: 36415; 71045; 80053; 81003; 82948; 83605; 83735; 84100; 85025; 85055; 96360; 99283; J7030

== ENCOUNTER 2024-02-23 20:53 | Emergency (ER) | payer OTHER, SELFPAY ==
[2024-02-23] VITALS (7 sets, daily range): BP systolic 162–172; BP diastolic 84–85; PULSE 78–90; RESP 16–18; TEMP 37; O2SAT 92–97
--- NOTE | ~2024-02-23 | XR_ITS ---
EXAMINATION: XR abdomen obstructive series DATE: 02/23/2024 22:34 INDICATION: Constipation TECHNIQUE: Frontal supine and upright views of the abdomen were obtained. COMPARISON: CT dated 11/08/2020 FINDINGS: Small amount of gas and large amount of stool scattered throughout the colon consistent with provided history of constipation. No dilated loops of gas-filled bowel to suggest obstruction. No free intrap erineal gas. Transhepatic portosystemic shunt in the right upper quadrant. Visual is portions of the mid to lower lungs are clear. Heart size is normal. IMPRESSION: 1. Large amount of colonic stool consistent with provided history of constipation. No free intraperi toneal gas or dilated gas-filled loops of bowel to suggest obstruction. Reviewed, dictated and finalized at location A. IMPRESSION: 1. Large amount of colonic stool consistent with provided history of constipat ion. No free intraperitoneal gas or dilated gas-filled loops of bowel to sugges t obstruction.
--- NOTE | 2024-02-23 21:00 | ED.GENADULT ---
HPI - General Adult General Chief complaint: Back Pain/Injury Stated complaint: Back Pain Time Seen by Provider: 02/23/24 20:59 Source: patient Mode of arrival: ambulatory Limitations: no limitations History of Present Illness HPI narrative: 53 YEARS OLD WHITE MALE CAME TO THE ED COMPLAINING OF RIGHT LOWER BACK SHARP STABBING PAIN FOR THE LAST 2 DAYS WHILE TRYING TO GIVE HIMSELF AN ENEMA BECAUSE OF CONSTIPATION FOR 2 WEEKS. HISTORY OF SPINAL STENOSIS AND INTERMITTENT LOWER BACK PAIN /CHRONIC LOWER BACK PAIN. PATIENT DENIES ANY FEVER, CHILLS, NAUSEA, VOMITING OR FOCAL NEURO DEFICIT. Related Data Home Medications Medication Instructions Recorded Confirmed albuterol sulfate 90 mcg/actuation 2 puff inhalation Q8-10H PRN 02/19/20 02/23/24 aerosol inhaler Wheezing alprazolam 1 mg tablet 0.5 mg PO TID PRN Anxiety 09/04/20 02/23/24 ondansetron HCl 4 mg tablet 4 mg PO BID PRN Nausea 09/04/20 02/23/24 liraglutide 0.6 mg/0.1 mL (18 mg/3 See Rx Instructions .Route .COMPLEX 03/05/21 02/23/24 mL) subcutaneous pen injector ([employer] 3-Anatoliy) hydroxyzine HCl 25 mg tablet 25 mg PO QID 06/20/23 02/23/24 trazodone 100 mg tablet 100 mg PO BID 06/20/23 02/23/24 blood sugar diagnostic (OneTouch 02/23/24 02/23/24 Ultra Test strips) blood-glucose sensor ([employer] G7 02/23/24 02/23/24 Sensor device) carvedilol 3.125 mg tablet 3.125 mg PO DAILY 02/23/24 02/23/24 dulaglutide 0.75 mg/0.5 mL 0.75 mg subcut DAILY 02/23/24 02/23/24 subcutaneous pen injector ([employer]) duloxetine 30 mg capsule,delayed 30 mg PO DAILY 02/23/24 02/23/24 release famotidine 20 mg tablet 20 mg PO DAILY 02/23/24 02/23/24 hydrochlorothiazide 25 mg tablet 25 mg PO DAILY 02/23/24 02/23/24 hydrocodone 10 mg-acetaminophen 10 - 325 tablet PO DAILY 02/23/24 02/23/24 325 mg tablet insulin glargine 100 unit/mL (3 100 unit subcut DIRECTED 02/23/24 02/23/24 mL) subcutaneous pen (Lantus Solostar U-100 Insulin) insulin lispro 100 unit/mL 100 unit subcut DIRECTED 02/23/24 02/23/24 subcutaneous pen (Humalog KwikPen (U-100) Insulin) insulin regular hum U-500 conc 500 500 unit subcut DIRECTED 02/23/24 02/23/24 unit/mL(3 mL) subcut pen (Humulin R U-500 (Conc) Insulin Kwikpen) lactulose 10 gram/15 mL oral 10 g PO DAILY 02/23/24 02/23/24 solution (Enulose) metformin 500 mg tablet,extended 500 mg PO DAILY 02/23/24 02/23/24 release 24 hr pen needle, diabetic 31 gauge x 02/23/24 02/23/2409/16 (TRUEplus Pen Needle) pregabalin 200 mg capsule 200 mg PO DAILY 02/23/24 02/23/24 Allergies Allergy/AdvReac Type Severity Reaction Status Date / Time aztreonam [Azactam] Allergy Intermediate Unknown Verified 02/23/24 21:20 ciprofloxacin [Cipro] Allergy Intermediate Unknown Verified 02/23/24 21:20 esomeprazole [Nexium] Allergy Intermediate Unknown Verified 02/23/24 21:20 octreotide Allergy Intermediate Unknown Verified 02/23/24 21:20 sulfanilamide Allergy Intermediate Unknown Verified 02/23/24 21:20 erythromycin base Allergy Unknown Unknown Verified 02/23/24 21:20 Penicillins Allergy Unknown Unknown Verified 02/23/24 21:20 Sulfa (Sulfonamide Allergy Unknown Unknown Verified 02/23/24 21:20 Antibiotics) duloxetine Allergy Unknown Verified 02/23/24 21:20 magnesium Allergy Unknown Verified 02/23/24 21:20 nisoldipine Allergy Unknown Verified 11/12/23 10:10 prochlorperazine Allergy Unknown Verified 11/12/23 10:10 IVP dye Allergy Intermediate Unknown Uncoded 11/12/23 10:10 Contrast Media Allergy Unknown Unknown Uncoded 11/12/23 10:10 Review of Systems Review of Systems: All systems reviewed & are unremarkable except as noted in HPI and below PMFSH Past Medical History Medical History Chronic back pain Diabetes mellitus type 2 in obese GERD (gastroesophageal reflux disease) GI bleeding Hepatic encephalopathy Liver failure Varices, esophageal Surgical History Surgical History (Reviewed 02/22/
[2024-02-23] MEDS: MORPHINE SULFATE (*CRX) 4 MG/ML INJ IM (21:48)
[2024-02-23] MEDS: CYCLOBENZAPRINE HCL 10 MG TABLET PO (21:49)
[2024-02-23] MEDS: ONDANSETRON HCL ODT 4 MG TABLET PO (21:50)
== END 2024-02-23 23:25 | disposition home or self-care (01) ==
PROVIDERS: Emergency Provider Emergency Medicine; PCP Physician Assistant
DX: M54.50 Low back pain, unspecified (principal); K59.00 Constipation, unspecified; E11.9 Type 2 diabetes mellitus without complications; Z79.899 Other long term (current) drug therapy; Z79.891 Long term (current) use of opiate analgesic; Z79.4 Long term (current) use of insulin; Z87.891 Personal history of nicotine dependence
CPT/HCPCS: 74019; 96372; 99283; A9270; J2270

== ENCOUNTER 2024-03-18 18:43 | Emergency (ER) | payer OTHER, SELFPAY ==
[2024-03-18 18:43] VITALS: BP 155/80; PULSE 90; RESP 16; TEMP 36.9; O2SAT 96
--- NOTE | 2024-03-18 19:05 | ED.BACK ---
HPI - Back Pain/Injury General Chief Complaint: Back Pain/Injury Stated Complaint: back pain Time Seen by Provider: 03/18/24 19:04 Source: patient and family Mode of arrival: ambulatory Limitations: no limitations History of Present Illness HPI Narrative: 53 years old white male came to the ED by private car complaining of flare up of lower back pain. History of chronic lower back pain, waiting for cortisone injection after his A1c goes down, intermittent flare. Patient report that the lower back pain today is not different than before, usually he gets 1 shot of morphine and go home on Flexeril with improvement. . He denies any fever, chills, nausea, vomiting, Patient denies bowel dysfunction, bladder dysfunction, altered sensation, focal weakness, or saddle numbness, Related Data Home Medications Medication Instructions Recorded Confirmed albuterol sulfate 90 mcg/actuation 2 puff inhalation Q8-10H PRN 02/19/20 02/23/24 aerosol inhaler Wheezing alprazolam 1 mg tablet 0.5 mg PO TID PRN Anxiety 09/04/20 02/23/24 ondansetron HCl 4 mg tablet 4 mg PO BID PRN Nausea 09/04/20 02/23/24 liraglutide 0.6 mg/0.1 mL (18 mg/3 See Rx Instructions .Route .COMPLEX 03/05/21 02/23/24 mL) subcutaneous pen injector ([employer] 3-Anatoliy) hydroxyzine HCl 25 mg tablet 25 mg PO QID 06/20/23 02/23/24 trazodone 100 mg tablet 100 mg PO BID 06/20/23 02/23/24 blood sugar diagnostic (OneTouch 02/23/24 02/23/24 Ultra Test strips) blood-glucose sensor ([employer] G7 02/23/24 02/23/24 Sensor device) carvedilol 3.125 mg tablet 3.125 mg PO DAILY 02/23/24 02/23/24 dulaglutide 0.75 mg/0.5 mL 0.75 mg subcut DAILY 02/23/24 02/23/24 subcutaneous pen injector ([employer]) duloxetine 30 mg capsule,delayed 30 mg PO DAILY 02/23/24 02/23/24 release famotidine 20 mg tablet 20 mg PO DAILY 02/23/24 02/23/24 hydrochlorothiazide 25 mg tablet 25 mg PO DAILY 02/23/24 02/23/24 hydrocodone 10 mg-acetaminophen 10 - 325 tablet PO DAILY 02/23/24 02/23/24 325 mg tablet insulin glargine 100 unit/mL (3 100 unit subcut DIRECTED 02/23/24 02/23/24 mL) subcutaneous pen (Lantus Solostar U-100 Insulin) insulin lispro 100 unit/mL 100 unit subcut DIRECTED 02/23/24 02/23/24 subcutaneous pen (Humalog KwikPen (U-100) Insulin) insulin regular hum U-500 conc 500 500 unit subcut DIRECTED 02/23/24 02/23/24 unit/mL(3 mL) subcut pen (Humulin R U-500 (Conc) Insulin Kwikpen) lactulose 10 gram/15 mL oral 10 g PO DAILY 02/23/24 02/23/24 solution (Enulose) metformin 500 mg tablet,extended 500 mg PO DAILY 02/23/24 02/23/24 release 24 hr pen needle, diabetic 31 gauge x 02/23/24 02/23/2409/16 ([employer] Pen Needle) pregabalin 200 mg capsule 200 mg PO DAILY 02/23/24 02/23/24 Allergies Allergy/AdvReac Type Severity Reaction Status Date / Time aztreonam [Azactam] Allergy Intermediate Unknown Verified 02/23/24 21:20 ciprofloxacin [Cipro] Allergy Intermediate Unknown Verified 02/23/24 21:20 esomeprazole [Nexium] Allergy Intermediate Unknown Verified 02/23/24 21:20 octreotide Allergy Intermediate Unknown Verified 02/23/24 21:20 sulfanilamide Allergy Intermediate Unknown Verified 02/23/24 21:20 erythromycin base Allergy Unknown Unknown Verified 02/23/24 21:20 Penicillins Allergy Unknown Unknown Verified 02/23/24 21:20 Sulfa (Sulfonamide Allergy Unknown Unknown Verified 02/23/24 21:20 Antibiotics) duloxetine Allergy Unknown Verified 02/23/24 21:20 magnesium Allergy Unknown Verified 02/23/24 21:20 nisoldipine Allergy Unknown Verified 11/12/23 10:10 prochlorperazine Allergy Unknown Verified 11/12/23 10:10 IVP dye Allergy Intermediate Unknown Uncoded 11/12/23 10:10 Contrast Media Allergy Unknown Unknown Uncoded 11/12/23 10:10 Review of Systems Review of Systems: All systems reviewed & are unremarkable except as noted in HPI and below PMFSH Past Medical History Medical History Chronic back pain Diabetes mellitus type 2 in obese GERD (gastroesophageal reflux disease) GI bleeding Hepatic encephalopathy Liver failure Varices, esophageal Surgical History Surgical History S/P TIPS (transjugular intrahepatic portosystemic shunt) Social History Social History Smoking status: Former smoker Alcohol intake: never Substance use: never Living arrangements: with family Exam Narrative: General appearance: Well-developed, well-nourished Skin: Normal color Chest and respiratory: Airway patent, no respiratory distress, no accessory muscle use Heart: Regular rate/rhythm Abdomen: Soft, nontender, no organomegaly, quiet bowel sounds Vascular: Normal peripheral pulses, normal capillary refill. Musculoskeletal: diffuse tenderness across lumbar area mainly at the right buttock, no bruises, no swelling or rash Neurologic: Alert and oriented ?3, [employer] is normal as tested, no gross motor deficit Course Vital Signs Vital signs: Vital Signs Temperature 36.9 C 03/18/24 18:43 Pulse Rate 90 03/18/24 18:43 Respiratory Rate 16 03/18/24 18:43 Blood Pressure 155/80 H 03/18/24 18:43 Pulse Oximetry 96 03/18/24 18:43 Oxygen Delivery Room Air 03/18/24 18:43 Temperature 36.9 C 03/18/24 18:43 Pulse Rate 90 03/18/24 18:43 Respiratory Rate 16 03/18/24 18:43 Blood Pressure 155/80 H 03/18/24 18:43 Pulse Oximetry 96 03/18/24 18:43 Oxygen Delivery Room Air 03/18/24 18:43 MDM - Back Pain/Injury MDM Narrative Medical decision making narrative: chronic back pain with intermittent flare, usually gets better on morphine in the ED and a prescription of Flexeril. Critical Care Time Critical Care Time Critical Care Time: No Discharge Plan Discharge Clinical Impression: Chronic lower back pain Patient Disposition: Home, Self-Care Condition: Improved Instructions: Acute Low Back Pain (ED) Additional Instructions: Return if symptoms are worsening , call your family physician for appointment, take Tylenol as as needed for aches and pain, continue home medications. Prescriptions: New cyclobenzaprine 10 mg tablet 10 mg PO TID PRN (Reason: muscle spasm) Qty: 20 0RF No Action albuterol sulfate 90 mcg/actuation HFA aerosol inhaler 2 puff INHALATION Q8-10H PRN (Reason: Wheezing) alprazolam 1 mg tablet 0.5 mg PO TID PRN (Reason: Anxiety) ondansetron HCl 4 mg tablet 4 mg PO BID PRN (Reason: Nausea) liraglutide [[employer] 3-Anatoliy] 0.6 mg/0.1 mL (18 mg/3 mL) pen injector See Rx Instructions .ROUTE .COMPLEX Rx Instructions: . Lagevrio (EUA) 200 mg capsule 800 mg PO Q12H 5 Days Qty: 40 0RF trazodone 100 mg tablet 100 mg PO BID hydroxyzine HCl 25 mg tablet 25 mg PO QID naproxen 500 mg tablet 500 mg PO BID PRN (Reason: pain) Qty: 14 0RF Rx Instructions: take with meals methocarbamol 750 mg tablet 1,500 mg PO TID Qty: 45 0RF triamcinolone acetonide 0.1 % ointment 1 applic topical TID 7 Days Qty: 15 0RF (DME) OneTouch Ultra Test Strip MISCELLANEOUS hydrocodone-acetaminophen 10-325 mg tablet 10 - 325 tablet PO DAILY carvedilol 3.125 mg tablet 3.125 mg PO DAILY famotidine 20 mg tablet 20 mg PO DAILY hydrochlorothiazide 25 mg tablet 25 mg PO DAILY metformin 500 mg tablet extended release 24 hr 500 mg PO DAILY insulin lispro [Humalog KwikPen Insulin] 100 unit/mL insulin pen 100 unit SUBCUT DIRECTED (DME) pen needle, diabetic [[employer] Pen Needle] 31 gauge x 5/16 needle MISCELLANEOUS duloxetine 30 mg capsule,delayed release(DR/EC) 30 mg PO DAILY lactulose [Enulose] 10 gram/15 mL solution 10 g PO DAILY pregabalin 200 mg capsule 200 mg PO DAILY insulin glargine [Lantus Solostar U-100 Insulin] 100 unit/mL (3 mL) insulin pen 100 unit SUBCUT DIRECTED (DME) [employer] Interactive[employer] Sensor Device MISCELLANEOUS Trulicity 0.75 mg/0.5 mL pen injector 0.75 mg SUBCUT DAILY Humulin R U-500 (Conc) Kwikpen 500 unit/mL (3 mL) insulin pen 500 unit SUBCUT DIRECTED omeprazole 20 mg capsule,delayed release(DR/EC) 20 mg PO BID Qty: 60 0RF Follow-up/Referrals: Lbirado,SONALI Huizar [Primary Care Provider] -
[2024-03-18] MEDS: ONDANSETRON HCL ODT 4 MG TABLET PO (19:12)
[2024-03-18] MEDS: HYDROmorphone HCL INJ (*CRX) 2 MG/ML VIAL 1 MG IM (19:15)
[2024-03-18 19:30] VITALS: BP 130/84; PULSE 84; RESP 18; O2SAT 97
== END 2024-03-18 19:30 | disposition home or self-care (01) ==
LOC: CHSED 19:55
PROVIDERS: Emergency Provider Emergency Medicine; PCP Physician Assistant
DX: M54.50 Low back pain, unspecified (principal); G89.29 Other chronic pain; E11.9 Type 2 diabetes mellitus without complications; Z79.891 Long term (current) use of opiate analgesic; Z79.899 Other long term (current) drug therapy; Z79.4 Long term (current) use of insulin
CPT/HCPCS: 96372; 99283; A9270; J1171

== ENCOUNTER 2024-03-22 17:03 | Emergency (ER) | payer OTHER, SELFPAY ==
[2024-03-22 17:05] VITALS: BP 156/94; PULSE 103; RESP 14; O2SAT 97
--- NOTE | 2024-03-22 17:26 | ED.GENADULT ---
HPI - General Adult General Chief complaint: Back Pain/Injury Stated complaint: back pain Time Seen by Provider: 03/22/24 17:22 Source: patient Mode of arrival: ambulatory Limitations: no limitations History of Present Illness HPI narrative: patient is a 53-year-old obese white male complains of chronic back pain for which he goes to the Pain Management as and takes Adams 10s 5 times a day. Today he drove to [place] and he had taken only 1 Adams 10 this morning at 8:00 a.m. before got to take his medicines with him. At time he got back is complaining of severe pain 10/10 normally it is a 3 to 5/10 when he is taking his Adams. He also takes pregabalin for this pain. He could barely get out of his car. And had increased pain with ambulation. Pain is in his right lower back nonradiating. Denies any problems eating or drinking voiding or stooling cough fever sore throat weakness or paresthesias or numbness or any other complaints. Patient was here March 18 for the same complaint and received Dilaudid shot. complaint: Acute on chronic back pain Related Data Home Medications Medication Instructions Recorded Confirmed albuterol sulfate 90 mcg/actuation 2 puff inhalation Q8-10H PRN 02/19/20 03/22/24 aerosol inhaler Wheezing alprazolam 1 mg tablet 0.5 mg PO TID PRN Anxiety 09/04/20 03/22/24 ondansetron HCl 4 mg tablet 4 mg PO BID PRN Nausea 09/04/20 03/22/24 liraglutide 0.6 mg/0.1 mL (18 mg/3 See Rx Instructions .Route .COMPLEX 03/05/21 03/22/24 mL) subcutaneous pen injector (fitaboratetoza 3-Anatoliy) hydroxyzine HCl 25 mg tablet 25 mg PO QID 06/20/23 03/22/24 trazodone 100 mg tablet 100 mg PO BID 06/20/23 03/22/24 blood sugar diagnostic (OneTouch 02/23/24 03/22/24 Ultra Test strips) blood-glucose sensor ([employer] G7 02/23/24 03/22/24 Sensor device) carvedilol 3.125 mg tablet 3.125 mg PO DAILY 02/23/24 03/22/24 dulaglutide 0.75 mg/0.5 mL 0.75 mg subcut DAILY 02/23/24 03/22/24 subcutaneous pen injector (Trulicity) duloxetine 30 mg capsule,delayed 30 mg PO DAILY 02/23/24 03/22/24 release famotidine 20 mg tablet 20 mg PO DAILY 02/23/24 03/22/24 hydrochlorothiazide 25 mg tablet 25 mg PO DAILY 02/23/24 03/22/24 hydrocodone 10 mg-acetaminophen 10 - 325 tablet PO DAILY 02/23/24 03/22/24 325 mg tablet insulin glargine 100 unit/mL (3 100 unit subcut DIRECTED 02/23/24 03/22/24 mL) subcutaneous pen (Lantus Solostar U-100 Insulin) insulin lispro 100 unit/mL 100 unit subcut DIRECTED 02/23/24 03/22/24 subcutaneous pen (Humalog KwikPen (U-100) Insulin) insulin regular hum U-500 conc 500 500 unit subcut DIRECTED 02/23/24 03/22/24 unit/mL(3 mL) subcut pen (Humulin R U-500 (Conc) Insulin Kwikpen) lactulose 10 gram/15 mL oral 10 g PO DAILY 02/23/24 03/22/24 solution (Enulose) metformin 500 mg tablet,extended 500 mg PO DAILY 02/23/24 03/22/24 release 24 hr pen needle, diabetic 31 gauge x 02/23/24 03/22/24 5/16 (TRUEplus Pen Needle) pregabalin 200 mg capsule 200 mg PO DAILY 02/23/24 03/22/24 Allergies Allergy/AdvReac Type Severity Reaction Status Date / Time aztreonam [Azactam] Allergy Intermediate Unknown Verified 03/22/24 17:12 ciprofloxacin [Cipro] Allergy Intermediate Unknown Verified 03/22/24 17:12 esomeprazole [Nexium] Allergy Intermediate Unknown Verified 03/22/24 17:12 octreotide Allergy Intermediate Unknown Verified 03/22/24 17:12 sulfanilamide Allergy Intermediate Unknown Verified 03/22/24 17:12 erythromycin base Allergy Unknown Unknown Verified 03/22/24 17:12 Penicillins Allergy Unknown Unknown Verified 03/22/24 17:12 Sulfa (Sulfonamide Allergy Unknown Unknown Verified 03/22/24 17:12 Antibiotics) duloxetine Allergy Unknown Verified 03/22/24 17:12 magnesium Allergy Unknown Verified 03/22/24 17:12 nisoldipine Allergy Unknown Verified 03/22/24 17:12 prochlorperazine Allergy Unknown Verified 03/22/24 17:12 IVP dye Allergy Intermediate Unknown Uncoded 03/22/24 17:12 Contrast Media Allergy Unknown Unknown Uncoded 03/22/24 17:12 Review of Systems Review of Systems: All systems reviewed & are unremarkable except as noted in HPI and below PMFSH Past Medical History Medical History Chronic back pain Diabetes mellitus type 2 in obese GERD (gastroesophageal reflux disease) GI bleeding Hepatic encephalopathy Liver failure Varices, esophageal Surgical History Surgical History S/P TIPS (transjugular intrahepatic portosystemic shunt) Social History Social History Smoking status: Former smoker Alcohol intake: never Substance use: never Living arrangements: with family Exam Narrative: White male patient with Moderate distress.? Head normocephalic, atraumatic.? Eyes conjunctiva pink sclera nonicteric.? Extraocular movements are intact.? Ears externally normal.? Oropharynx is clear with moist mucous membranes without exudates.? Neck is supple nontender no lymphadenopathy.? Back has moderate tenderness to the right lower paralumbar area. Negative straight leg raise bilaterally. Deep tendon reflexes +2 for lower extremities equal bilateral.? Lungs are clear.? Heart is regular rate and rhythm without murmurs gallops or rubs.? Chest wall nontender. Abdomen Morbidly obese and is soft and nontender no hepatosplenomegaly or masses no CVA tenderness no abdominal bruits.? Extremities no cyanosis clubbing or edema.? Skin is warm and dry without rashes or lesions.? Neurological patient is alert and oriented x4.? Motor and sensory grossly intact.? Gait is normal with pain referred to his back.. Course Vital Signs Vital signs: Vital Signs Pulse Rate 103 H 03/22/24 17:05 Respiratory Rate 14 03/22/24 17:05 Blood Pressure 156/94 H 03/22/24 17:05 Pulse Oximetry 97 03/22/24 17:05 Oxygen Delivery Room Air 03/22/24 17:05 Pulse Rate 103 H 03/22/24 17:05 Respiratory Rate 14 03/22/24 17:05 Blood Pressure 156/94 H 03/22/24 17:05 Pulse Oximetry 97 03/22/24 17:05 Oxygen Delivery Room Air 03/22/24 17:05 Medical Decision Making MDM Narrative Medical decision making narrative: ?Patient placed in room: Be with his ? History and physical was performed. Independent Historian: External Source Review: last ED visit reviewed and ED visits for the last year to his hip in here for back pain hyperglycemia constipation Differential Dx includes but not limited to: acute on chronic back pain Medications were Reviewed: home meds reviewed Medications given: Dilaudid 1 mg IM Independently Interpreted by me: Shared decision Making: evaluation was discussed all questions were asked and answered patient agreed with the plan. Patient did want his Dilaudid shot in the arm I told him he would only get that and the hip as it is much safer in the Hip. Social Situation Impacting Patients Care: Chronic low back pain Discussed with Dr. SALAZAR DIAGNOSIS: acute on chronic low back pain DISPOSITION : discharge home CONDITION AT DISCHARGE: stable Vital Signs Vital Signs: Vital Signs Pulse Rate 103 H 03/22/24 17:05 Respiratory Rate 14 03/22/24 17:05 Blood Pressure 156/94 H 03/22/24 17:05 Pulse Oximetry 97 03/22/24 17:05 Oxygen Delivery Room Air 03/22/24 17:05 Pulse Rate 103 H 03/22/24 17:05 Respiratory Rate 14 03/22/24 17:05 Blood Pressure 156/94 H 03/22/24 17:05 Pulse Oximetry 97 03/22/24 17:05 Oxygen Delivery Room Air 03/22/24 17:05 Discharge Plan Discharge Clinical Impression: Chronic low back pain Qualifiers: Back pain laterality: right Sciatica presence: without sciatica Qualified Code(s): M54.50 - Low back pain, unspecified Acute low back pain Qualifiers: Back pain laterality: right Sciatica presence: without sciatica Qualified Code(s): M54.50 - Low back pain, unspecified Patient Disposition: Home, Self-Care Condition: Stable Instructions: Acute Low Back Pain (ED) Additional Instructions: take your Dilaudid 10 mg as prescribed and take your Flexeril also as prescribed. Ice packs and or low heating pad for pain as needed. Follow-up with your pain management doctor tomorrow for further evaluation treatment. Return if you get worse or develops any new symptoms. Take her Naprosyn as prescribed. Prescriptions: No Action albuterol sulfate 90 mcg/actuation HFA aerosol inhaler 2 puff INHALATION Q8-10H PRN (Reason: Wheezing) alprazolam 1 mg tablet 0.5 mg PO TID PRN (Reason: Anxiety) ondansetron HCl 4 mg tablet 4 mg PO BID PRN (Reason: Nausea) liraglutide [Victoza 3-Anatoliy] 0.6 mg/0.1 mL (18 mg/3 mL) pen injector See Rx Instructions .ROUTE .COMPLEX Rx Instructions: . Lagevrio (EUA) 200 mg capsule 800 mg PO Q12H 5 Days Qty: 40 0RF trazodone 100 mg tablet 100 mg PO BID hydroxyzine HCl 25 mg tablet 25 mg PO QID naproxen 500 mg tablet 500 mg PO BID PRN (Reason: pain) Qty: 14 0RF Rx Instructions: take with meals methocarbamol 750 mg tablet 1,500 mg PO TID Qty: 45 0RF triamcinolone acetonide 0.1 % ointment 1 applic topical TID 7 Days Qty: 15 0RF (DME) OneTouch Ultra Test Strip MISCELLANEOUS hydrocodone-acetaminophen 10-325 mg tablet 10 - 325 tablet PO DAILY carvedilol 3.125 mg tablet 3.125 mg PO DAILY famotidine 20 mg tablet 20 mg PO DAILY hydrochlorothiazide 25 mg tablet 25 mg PO DAILY metformin 500 mg tablet extended release 24 hr 500 mg PO DAILY insulin lispro [Humalog KwikPen Insulin] 100 unit/mL insulin pen 100 unit SUBCUT DIRECTED (DME) pen needle, diabetic [[employer]plus Pen Needle] 31 gauge x 5/16 needle MISCELLANEOUS duloxetine 30 mg capsule,delayed release(DR/EC) 30 mg PO DAILY lactulose [Enulose] 10 gram/15 mL solution 10 g PO DAILY pregabalin 200 mg capsule 200 mg PO DAILY insulin glargine [Lantus Solostar U-100 Insulin] 100 unit/mL (3 mL) insulin pen 100 unit SUBCUT DIRECTED (DME) [employer] G7 Sensor Device MISCELLANEOUS Trulicity 0.75 mg/0.5 mL pen injector 0.75 mg SUBCUT DAILY Humulin R U-500 (Conc) Kwikpen 500 unit/mL (3 mL) insulin pen 500 unit SUBCUT DIRECTED cyclobenzaprine 10 mg tablet 10 mg PO TID PRN (Reason: muscle spasm) Qty: 20 0RF omeprazole 20 mg capsule,delayed release(DR/EC) 20 mg PO BID Qty: 60 0RF Follow-up/Referrals: Librado,SONALI Huizar [Primary Care Provider] -
[2024-03-22] MEDS: HYDROmorphone HCL INJ (*CRX) 2 MG/ML VIAL 1 MG IM (17:54)
== END 2024-03-22 18:19 | disposition home or self-care (01) ==
PROVIDERS: Emergency Provider Emergency Medicine; PCP Physician Assistant
DX: M54.50 Low back pain, unspecified (principal); E11.9 Type 2 diabetes mellitus without complications; K72.90 Hepatic failure, unspecified without coma; Z87.891 Personal history of nicotine dependence; Z79.899 Other long term (current) drug therapy; Z79.4 Long term (current) use of insulin; Z79.891 Long term (current) use of opiate analgesic
CPT/HCPCS: 96372; 99283; J1171

== ENCOUNTER 2024-04-16 08:20 | Outpatient (CLI) | payer OTHER, SELFPAY ==
--- NOTE | ~2024-04-16 | MR_ITS ---
MRI of the lumbar spine Clinical History: Back pain radiating to lower extremities Technique: Axial T2-weighted images, and sagittal T1-weighted, T2-weighted, and T2 fat-sat images wer e acquired. Findings: There is no fracture or subluxation of the lumbar spine. Vertebral bodies maintain normal h eight and alignment. No focal bone marrow signal abnormality seen. At L1-L2, there is no disc bulge or herniation. There is mild facet hypertrophy. No spinal canal sten osis or neural foraminal narrowing. At L2-L3, there is no significant disc bulge or herniation. There is mild facet arthropathy. No centr al canal stenosis or neural foraminal narrowing. L3-L4, there is minimal disc bulge with mild facet arthropathy. No central canal stenosis or definite neural foraminal narrowing. At L4-L5, there is mild disc bulge with moderate facet arthropathy. No central canal stenosis. There is mild to moderate bilateral neural foraminal narrowing. At L5-S1, there is degenerative disc narrowing without significant disc bulge or herniation. There is moderate facet arthropathy. No central canal stenosis or neural foraminal narrowing. Paravertebral soft tissues are unremarkable. 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 Impression: Mild degenerative spondylosis overall, worst at L4-L5. Reviewed, dictated and finalized at [facility]. ING SPECIALIST Impression: Mild degenerative spondylosis overall, worst at L4-L5.
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
--- OUTSIDE RECORDS SUMMARY | 2024-04-19 22:42 | XMS_ITS | Encounter Summary ---
Author Organization [facility] Address [address] [place], [place] [address] [address] Care Team Providers Care Property Technician Name Role Phone Braydon Pavon Primary Care Provider [phone] Reason for Visit * Reason Onset Date Comments Follow-up 11/19/2023 Encounter Details Date Type Department Care Team (Late Contact Info) Description 11/19/2023 Telephone [facility] - [address], [facility] [place] [address] Steve Bedolla MD [address] [place] [address] Follow-up Social History Tobacco Use Types Packs/Day Years Used Date Smoking Tobacco: Former Smokeless Tobacco: Never Alcohol Use Standard Drinks/Week Comments No 0 (1 standard drink = 0.6 oz pur e alcohol) Sex and Gender Information Value Date Recorded Sex Assigned at Not on file Gender Identity Not on file Sexual Orientation Not on file documented as of this encounter Miscellaneous Notes * Telephone Encounter - Yoly Kirk RN - 11/19/2023 11:49 AM CDT Received ED notes from [facility] visit 11/12 Please see in CE Patient needs to be contacted at [phone] documented in this encounter Plan of Treatment Upcoming Encounters Date Type Department Care Team (Late Contact Info) Description 02/17/2024 11:59 PM CDT Anesthesia Event [facility] MRI [address] [place] [phone] Pushpa Frey, DO [address] [phone] 05/20/2024 12:30 PM PROJECT DIRECTOR Appointment [facility] MRI [address] [place] [phone] Steve Bedolla MD [address] [place] [phone] 06/30/2024 10:30 AM PROJECT DIRECTOR Office Visit [facility] - [address], [facility] [place] [phone] Steve Bedolla MD [address] [place] [address] documented as of this encounter Goals Goal [...] last dose documented as of this encounter Visit Diagnoses Not on filedocumented in this encounter Care Teams Property Technician Relationship Specialty Start Date End Date Braydon Pavon PA [address] [place] [address] PCP - General Physician Retail Merchandising Coordinator 07/14/23 documented as of this encounter
--- OUTSIDE RECORDS SUMMARY | 2024-04-19 22:42 | XMS_ITS | Encounter Summary ---
Author Organization [facility] Address [address] [place] [address] Care Team Providers Care Clearing Hand Name Role Phone Nikolay Lancaster MD Primary Care Provider [phone] Encounter Details Date Type Department Care Team (Late Contact Info) Description 10/25/2018 Orders Only [facility] End[facility]ology, Diabetes and Metabolism [address] [place] [address] Edmond Choi MD [address] [address] Social History Tobacco Use Types Packs/Day Years Used Date Smoking Tobacco: Former Smokeless Tobacco: Never Alcohol Use Standard Drinks/Week Comments No 0 (1 standard drink = 0.6 oz pur e alcohol) Sex and Gender Information Value Date Recorded Sex Assigned at Not on file Gender Identity Not on file Sexual Orientation Not on file documented as of this encounter Plan of Treatment Upcoming Encounters Date Type Department Care Team (Late Contact Info) Description 02/17/2024 11:59 PM CDT Anesthesia Event [facility] MRI [address] [place] [phone] Pushpa Frey DO [facility] [facility] [address] [phone] 05/20/2024 12:30 PM BALLET COMPANY ARTISTIC DIRECTOR Appointment [facility] MRI [address] [place] [phone] Steve Bedolla MD [address] [place] [phone] 06/30/2024 10:30 AM BALLET COMPANY ARTISTIC DIRECTOR Office Visit [facility] - [address], [place] [address] Steve Bedolla MD [address] [place] [phone] documented as of this encounter Visit Diagnoses Not on filedocumented in this encounter Care Teams Clearing Hand Relationship Specialty Start Date End Date Nikolay Lancaster MD [address] [place], [place] [phone] PCP - General 10/04/18 07/13/23 documented as of this encounter
--- OUTSIDE RECORDS SUMMARY | 2024-04-19 22:42 | XMS_ITS | Encounter Summary ---
Author Organization [facility] Address [facility] [address] Care Team Providers Care Station Supervisor Name Role Phone Braydon Pavon Primary Care Provider [phone] Reason for Visit * Reason Onset Date Comments Medication Prior Auth Request 01/05/2024 PA needed for Xifaxan Encounter Details Date Type Department Care Team (Late st Contact Info) Description 01/05/2024 Telephone [facility] - [address] [place] [phone] Sulema Arvizu, [facility] Medication Prior Auth Request (PA needed for Xifaxan) Social History Tobacco Use Types Packs/Day Years [...] encounter Miscellaneous Notes * Telephone Encounter - Sulema Arvizu RPhT - 01/22/2024 11:00 AM CDT The prior authorization for Xifaxan has been approved; details below. The insurance decision letteris scanned into media. Orders can now be sent. Message routed to Dr Steve Bedolla and Yoly Kirk RN Medication Prior Authorization Medication: Xifaxan 550 mg tablet; #60 per 30 days Diagnosis Code Submitted: K76.82 Status: APPROVED THROUGH 01-20-2025 Submitted via: Cover My Meds ([place]:[id number]) Insurance: [employer] / [employer] [place] Medicaid Helpdesk: [phone] Benito Addison, Medication [facility] * Telephone Encounter - Sulema Arvizu RPhT - 01/21/2024 8:34 AM CDT Prior Authorization for Xifaxan submitted today via CoverMyMeds. I will addend and update status when available. Message routed to Yoly Kirk RN Medication Prior Authorization Medication: Xifaxan 550 mg tablet; #60 per 30 days Diagnosis Code Submitted: K76.82 Status: Submitted - Pending Submitted via: Cover My Meds ([place]:[id number]) Insurance: [employer] / [employer] [place] Medicaid Helpdesk: [phone] Benito Addison, [facility]ication [facility], [facility] * Telephone Encounter - Sulema Arvizu RPhT - 01/05/2024 8:18 AM CDT ----- Message from Steve Bedolla MD sent at 12/29/2023 12:25 PM CDT ----- Regarding: Rifaximin Hello Can we attempt a PA to obtain rifaximin for this patient. He has had trouble getting it. Thanks UA documented in this encounter Plan of Treatment Upcoming Encounters Date Type Department Care Team (Late st Contact Info) Description 02/17/2024 11:59 PM CDT Anesthesia Event [facility] MRI [address] [place] [phone] Pushpa Frey, DO [address] [facility] [address] [phone] 05/20/2024 12:30 PM RIGGING AND CONTROLS AIRCRAFT MECHANIC Appointment [facility] MRI [address] [place] [phone] Steve Bedolla MD [facility] [place] [address] 06/30/2024 10:30 AM RIGGING AND CONTROLS AIRCRAFT MECHANIC Office Visit [facility] - [address] [facility], [place] [address] Steve Bedolla MD [facility] [place] [phone] documented as of this encounter Goals Goal [...] on filedocumented in this encounter Care Teams Station Supervisor Relationship Specialty Start Date End Date Braydon Pavon PA [address] [place] [address] PCP - General Physician Rail Transit Operator 07/14/23 documented as of this encounter
--- OUTSIDE RECORDS SUMMARY | 2024-04-19 22:42 | XMS_ITS | Encounter Summary ---
Author Organization [facility] Address [address] [facility] [place] [address] Care Team Providers Care Air Turning Machine Feeder Name Role Phone Braydon Pavon Primary Care Provider [phone] Encounter Details Date Type Department Care Team (Latest Contact Info) Description 02/16/2024 Travel Social History Tobacco Use Types Packs/Day Years Used Date Smoking Tobacco: Former Smokeless Tobacco: Never Alcohol Use Standard Drinks/Week Comments No 0 (1 standard drink = 0.6 oz pur e alcohol) Sex and Gender Information Value Date Recorded Sex Assigned at Not on file Gender Identity Not on file Sexual Orientation Not on file documented as of this encounter Functional Status Functional Status Response Date of Assess ment Is person deaf or have serious hearing difficult y? No 02/12/2024 Is person blind or have serious difficulty seein g? No 02/12/2024 Does person have serious dif ficulty walking/climbing stairs? No 02/12/2024 Does person have difficulty dressing/bathing? No 02/12/2024 Does person have difficulty doing errands alone? No 02/12/2024 Cognitive Status Response Date of Assessm ent Does person have difficulty concentrating/remembering/making decisions? No 02/12/2024 documented as of this encounter Plan of Treatment Upcoming Encounters Date Type Department Care Team (Late st Contact Info) Description 02/17/2024 11:59 PM CDT Anesthesia Event [facility] MRI [address] [place] [phone] Pushpa Frey, DO [address] [facility] [address] [phone] 05/20/2024 12:30 PM GRILL ATTENDANT Appointment [facility] MRI [address] [place] [address] Steve Bedolla MD [address] [place] [address] 06/30/2024 10:30 AM GRILL ATTENDANT Office Visit [facility] - GI [address] [facility], [place] [address] Steve Bedolla MD [address] [place] [address] documented as of this encounter Goals [...] on filedocumented in this encounter Care Teams Air Turning Machine Feeder Relationship Specialty Start Date End Date Braydon Pavon PA [address] [place] [address] PCP - General Physician Parking Enforcement Specialist 07/14/23 documented as of this encounter
--- OUTSIDE RECORDS SUMMARY | 2024-04-19 22:42 | XMS_ITS | Encounter Summary ---
Author Organization [facility] Address [address] [place] [address] [place] [address] Care Team Providers Care Casino Floor Walker Name Role Phone Braydon Pavon Primary Care Provider [phone] Encounter Details Date Type Department Care Team (Latest Contact Info) Description 12/29/2023 1:12 PM CDT - 12/29/2023 11:59 PM T Hospital Encounter [facility] OP DRAW STATION [address] [place] [phone] Discharge Disposition: Home or Self Care Social History Tobacco Use Types Packs/Day Years Used Date Smoking Tobacco: Former Smokeless Tobacco: Never Alcohol Use Standard Drinks/Week Comments No 0 (1 standard drink = 0.6 oz pur e alcohol) Sex and Gender Information Value Date Recorded Sex Assigned at Not on file Gender Identity Not on file Sexual Orientation Not on file documented as of this encounter Medications at Time of Discharge Medication Sig Dispensed Refills Start Date End Date ALPRAZolam (XANAX) 0.5 MG tablet Take 1 (one) tablet by mouth 3 times daily as needed for Anxiety blood glucose (TRUE METRIX BLOOD GLUCOSE TEST) test strip Use 1 strip 3 times daily 100 strip 11 12/08/2018 famotidine (Pepcid) 20 MG tablet 05/20/2023 HUMULIN R U-500 KWIKPEN 500 UNIT/ML SOPN pen Take every 6 hours: 150 units in AM, 150 in afternoon, 150 in evening and 100 units at bedtime 12 Pen 5 12/23/2018 HYDROcodone 10 MG CAPS cmpd capsule Take 1 (one) capsule by mouth 3 times daily as needed for Pain INSULIN SYRINGE/NEEDLE U-500 31G X 6MM 0.5 ML (BD INSULIN SYRINGE U-500) 31G X 6MM 0.5 ML MISC Use 1 syringe 4 times daily - before meals & nightly 100 Each 3 12/08/2018 lactulose (CHRONULAC) 10 GM/15ML solutionIndications: 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) Take 30 mL by mouth 4 times daily 1892 mL 3 01/11/2019 pen needles 5/16 31G X 8 MM 31G X 8 MM Use as directed 100 Each 3 06/07/2018 pregabalin (Lyrica) 150 MG capsule 2 times daily Trulicity 0.75 MG/0.5ML injection 07/03/2023 XIFAXAN 550 MG tablet Take 1 tablet by mouth 2 times daily 90 tablet 3 08/27/2018 carvedilol (Coreg) 3.125 MG tablet 05/06/2023 02/12/2024 insulin glargine (Lantus SoloStar) pen INJECT 35 UNITS SUBCUTANEOUSLY IN THE MORNING AND 50 UNITS IN THE EVENING 02/02/2023 02/16/2024 ondansetron (ZOFRAN) 4 MG tablet 05/05/2018 02/16/2024 traMADol (Ultram) 50 MG tablet Take 1 (one) tablet by mouth 02/02/2023 02/16/2024 traZODone (Desyrel) 100 MG tablet Take 1 (one) tablet by mouth 2 times daily 02/02/2023 02/16/2024 documented as of this encounter Plan of Treatment Upcoming Encounters Date Type Department Care Team (Late st Contact Info) Description 02/17/2024 11:59 PM CDT Anesthesia Event [facility] [address] [place] [phone] Pushpa Frey, DO [address] [facility] [address] [phone] 05/20/2024 12:30 PM DRILLING ENGINEER Appointment [facility] [address] [place] [phone] Steve Bedolla MD [address] [place] [phone] 06/30/2024 10:30 AM DRILLING ENGINEER Office Visit [facility] - GI [address] [facility], [place] [address] Steve Bedolla MD [address] [place] [address] documented as of this encounter [...] last dose documented as of this encounter Procedures Procedure Name Priority Date/Time Associated Diagnosis Comments PT-INR [facility] Routine 12/29/2023 1:12 PM CDT Cirrhosis of liver without ascites, unspecified hepatic cirrhosis type (HCC) ALPHA FETOPROTEIN BLOOD TUMOR MARKER Routine 12/29/2023 1:12 PM CDT Cirrhosis of liver without ascites, unspecified hepatic cirrhosis type (HCC) CBC W AUTO DIFFERENTIAL Routine 12/29/2023 1:12 PM CDT Cirrhosis of liver without ascites, unspecified hepatic cirrhosis type (HCC) COMPREHENSIVE METABOLIC PANEL Routine 12/29/2023 1:12 PM CDT Cirrhosis of liver without ascites, unspecified hepatic cirrhosis type (HCC) HEPATITIS B SURFACE ANTIBODY Routine 12/29/2023 1:12 PM CDT Cirrhosis of liver without ascites, unspecified hepatic cirrhosis type (HCC) Encounter for screening for other viral diseases BILIRUBIN DIRECT Routine 12/29/2023 1:12 PM CDT Cirrhosis of liver without ascites, unspecified hepatic cirrhosis type (HCC) HEPATITIS A ANTIBODY Routine 12/29/2023 1:12 PM CDT Cirrhosis of liver without ascites, unspecified hepatic cirrhosis type (HCC) Encounter for screening for other viral diseases documented in this encounter Results * HEPATITIS B SURFACE ANTIBODY (12/29/2023 1:12 PM CDT) Pathologist [facility] Hepatitis B Virus Surface Antibody Non-react chetna Non-react chetna 12/29/2023 2:13 PM CDT [facility] Comment: < 8 mIU/mL Hepatitis B surface Antibody (HBsAb). Nonreactive for HBsAb - individual is considered not immune to Hepatitis B Virus infection. Hepatitis B Surface Antibody Quantitative 0.3 <8.0 mIU/mL 12/29/2023 2:13 PM CDT [facility] Comment: Hepatitis B Surface Antibody Numeric Result Interpretation: ? Nonreactive: ?<8.0 mIU/mL ? Indeterminate: ??8.0 - 12.0 mIU/mL ? Reactive: ?>12.0 mIU/mL ? Blood BLOOD SPECIMEN / Unknown Lab Venipuncture / Unknown 12/29/2023 1:12 PM CDT 12/29/2023 1:26 PM CDT Steve Bedolla MD LAB - CHEMISTRY LIONEL WHITT [facility] Organization Address City/State/[facility] Co de Phone Number [facility] [address] [place] [phone], [facility] [phone] * HEPATITIS A ANTIBODY (12/29/2023 1:12 PM CDT) Pathologist [facility] Hepatitis A Virus Antibody Total Negative Negative 12/31/2023 8:56 AM CDT [facility] ([facility]) Comment: Performed By: Hello Chair [address] [place] [id number] Manager Mass: Benny Desai MD, PhD CLIA Number: [id number] Blood BLOOD SPECIMEN / Unknown Lab Venipuncture / Unknown 12/29/2023 1:12 PM CDT 12/29/2023 1:26 PM CDT Steve Bedolla MD LAB - CHEMISTRY LIONEL WHITT [facility] ([facility]) [address] [place] [address], [facility] * ALPHA FETOPROTEIN BLOOD TUMOR MARKER (12/29/2023 1:12 PM CDT) Pathologist [facility] Alpha-Fetoprote in Tumor Marker 2.2 <=8.3 ng/mL 12/29/2023 2:22 PM CDT [facility] Comment: AFP values will vary depending on testing procedure used. Results are not comparable across different methods. AFP values obtained by [facility] using an Carwow Alinity Immunoassay. Blood BLOOD SPECIMEN / Unknown Lab Venipuncture / Unknown 12/29/2023 1:12 PM CDT 12/29/2023 1:36 PM CDT Steve Bedolla MD LAB - CHEMISTRY LIONEL WHITT Performing Organization Address City/[facility]/ZIP Co de Phone Number [facility] [address] [place] [phone], [facility] [phone] * BILIRUBIN DIRECT (12/29/2023 1:12 PM CDT) [facility] Bilirubin Conjugated 0.5 0.1 - 0.5 mg/dL 12/29/2023 2:07 PM CDT [facility] Blood BLOOD SPECIMEN / Unknown Lab Venipuncture / Unknown 12/29/2023 1:12 PM CDT 12/29/2023 1:37 PM CDT Steve Bedolla MD LAB - CHEMISTRY LIONEL WHITT [address] [address], [facility] [phone] * PT-INR [facility] (12/29/2023 1:12 PM CDT) Pathologist [facility] PT 13.9 12.1 - 14.8 Seconds 12/29/2023 2:29 PM [facility] INR 1.1 See Comment 12/29/2023 2:29 PM [facility] Comment:The suggested therap eutic range for standard coumadin (warfarin) therapy is an INR of 2.0-3.0. For high-risk patients (Mechanical Mitral Valve Prosthesis, etc.), the suggested prophylactic therapeutic range is an INR of 2.5-3.5. Blood BLOOD SPECIMEN / Unknown Lab Venipuncture / Unknown 12/29/2023 1:12 PM CDT 12/29/2023 1:26 PM CDT Steve Bedolla MD LAB - COAGULATION OR DERABLES [facility] [address] [place] [address], [facility] [phone] * (ABNORMAL) COMPREHENSIVE METABOLIC PANEL (12/29/2023 1:12 PM CDT) BUN 13 7 - 26 mg/dL 12/29/2023 2:07 PM [facility] Creatinine 0.73 0.71 - 1.16 mg/dL 12/29/2023 2:07 PM [facility] Sodium 138 136 - 145 mmol/L 12/29/2023 2:07 PM [facility] Potassium 4.8(H) 3.5 - 4.5 mmol/L 12/29/2023 2:07 PM [facility] Chloride 105 98 - 107 mmol/L 12/29/2023 2:07 PM [facility] CO2 25 22 - 29 mmol/L 12/29/2023 2:07 PM [facility] Glucose 362(H) 70 - 115 mg/dL 12/29/2023 2:07 PM [facility] Calcium 9.8 8.4 - 10.2 mg/dL 12/29/2023 2:07 PM [facility] Protein Total 7.0 6.0 - 8.3 g/dL 12/29/2023 2:07 PM [facility] Albumin 3.7 3.4 - 5.0 g/dL 12/29/2023 2:07 PM [facility] Bilirubin Total 3.2(H) 0.2 - 1.2 mg/dL 12/29/2023 2:07 PM [facility] Alkaline Phosphatase 89 40 - 150 U/L 12/29/2023 2:07 PM [facility] ALT 16 5 - 55 U/L 12/29/2023 2:07 PM [facility] AST 23 5 - 34 U/L 12/29/2023 2:07 PM [facility] Anion Gap 8 6 - 16 12/29/2023 2:07 PM [facility] BUN/Creatinine Ratio 18 7 - 23 12/29/2023 2:07 PM [facility] Osmolality Calculated 301(H) 275 - 295 mOsm/kg 12/29/2023 2:07 PM [facility] Albumin/Globulin Ratio 1.1 1.1 - 2.3 12/29/2023 2:07 PM [facility] eGFR by CKD-EPI >90 >=90 mL/min/1.7 3 m2 12/29/2023 2:07 PM [facility] Blood BLOOD SPECIMEN / Unknown Lab Venipuncture / Unknown 12/29/2023 1:12 PM CDT 12/29/2023 1:37 PM CDT Steve Bedolla MD LAB - CHEMISTRY LIONEL WHITT [facility] Organization Address City/State/ZIP Co de Phone Number [facility] [address] [place] [phone], [facility] [phone] * (ABNORMAL) CBC WITH DIFFERENTIAL (12/29/2023 1:12 PM CDT) WBC 4.2 4.0 - 10.7 x10E9/L 12/29/2023 1:52 PM [facility] RBC Count 5.58 4.30 - 5.80 x10E12/L 12/29/2023 1:52 PM [facility] Hemoglobin 15.8 13.3 - 17.5 g/dL 12/29/2023 1:52 PM [facility] Hematocrit 44.7 38.7 - 51.1 % 12/29/2023 1:52 PM [facility] MCV 80.1 80.0 - 98.0 fL 12/29/2023 1:52 PM [facility] MCH 28.3 26.7 - 33.6 pg 12/29/2023 1:52 PM [facility] MCHC 35.3 31.7 - 36.3 g/dL 12/29/2023 1:52 PM [facility] RDW-CV 18.2(H) 11.3 - 14.8 % 12/29/2023 1:52 PM [facility] Platelet Count 84(L) 150 - 420 x10E9/L 12/29/2023 1:52 PM [facility] MPV 10.0 7.8 - 11.4 fL 12/29/2023 1:52 PM [facility] Neutrophil % 68.4 41.0 - 74.0 % 12/29/2023 1:52 PM [facility] Lymphocyte % 17.5 17.0 - 47.0 % 12/29/2023 1:52 PM [facility] Monocyte % 9.2 3.0 - 11.0 % 12/29/2023 1:52 PM [facility] Eosinophil % 3.5 0.0 - 7.0 % 12/29/2023 1:52 PM [facility] Basophil % 1.2 0.0 - 1.6 % 12/29/2023 1:52 PM [facility] Immature Granulocytes % 0.2 0.0 - 1.0 % 12/29/2023 1:52 PM [facility] Neutrophil Absolute 2.89 1.60 - 7.50 x10E9/L 12/29/2023 1:52 PM [facility] Lymphocyte Absolute 0.74(L) 1.00 - 4.40 x10E9/L 12/29/2023 1:52 PM [facility] Monocyte Absolute 0.39 0.15 - 1.00 x10E9/L 12/29/2023 1:52 PM [facility] Eosinophil Absolute 0.15 0.00 - 0.60 x10E9/L 12/29/2023 1:52 PM CDT [facility] Basophil Absolute 0.05 0.00 - 0.13 x10E9/L 12/29/2023 1:52 PM CDT [facility] Blood BLOOD SPECIMEN / Unknown Lab Venipuncture / Unknown 12/29/2023 1:12 PM CDT 12/29/2023 1:36 PM CDT Steve Bedolla MD LAB - HEMATOLOGY ORD ERABLES [facility] [address] [place] [address], [facility] [phone] documented in this encounter Visit Diagnoses Diagnosis Cirrhosis of liver without ascites, unspecified hepatic cirrhosis type (HCC) Encounter for screening for other viral diseases documented in this encounter Care Teams Casino Floor Walker Relationship Specialty Start Date End Date Braydon Pavon PA [address] [place] [address] PCP - General Physician Beet Worker 07/14/23 documented as of this encounter
--- OUTSIDE RECORDS SUMMARY | 2024-04-19 22:42 | XMS_ITS | Clinical Summary ---
Author Organization [facility] Address [address] [facility] [place] [address] Care Team Providers Care Assembler Flexible Leads Name Role Phone Braydon Pavon Primary Care Provider [phone] Source Comments [facility],non-owned Affiliates and Associated Physician Practices is amultiple site organization consisting of ambulatory clinics and hospital sitesin [place], [place], [place] and [place]. This disclosure is being madepursuant to the Care Everywhere program and may not contain all information available regarding this patient. Last updated 18.[facility] Allergies Active Allergy Reactions Criticality Noted Date Comments Aztreonam In Dextrose Urticaria Medium 05/24/2018 Aztreonam Urticaria Medium 05/24/2018 Ciprofloxacin Urticaria Medium 05/24/2018 Duloxetine Urticaria Medium 05/24/2018 Erythromycin Urticaria Medium 05/24/2018 Iodine Swelling Medium 10/25/2018 Contrast-Iodinated Agents For Ct/Other Rash Medium 05/24/2018 Metoclopramide Psychiatric Medium 08/23/2021 Dysphoric reaction Esomeprazole Urticaria Medium 05/24/2018 Nisoldipine Unknown 01/03/2015 Octreotide Urticaria Medium 05/24/2018 Oxycodone Palpitations 02/12/2024 Penicillins Shortness of Breath High 05/24/2018 Prochlorperazine Urticaria Medium 02/12/2024 Poss. hives w/IV dose Sulfa Drugs Urticaria Medium 05/24/2018 Wound Dressing Adhesive Other 02/27/2023 Tape - Blisters Medications * Be aware that medications may not be up to date on this document. Alwaysverify current medications with the patient. Medication Sig Dispensed Refills Start Date End Date Status ALPRAZolam (XANAX) 0.5 MG tablet Take 1 (one) tablet by mouth 3 times daily as needed for Anxiety Active pen needles / 31G X 8 MM 31G X 8 MM Use as directed 100 Each 3 06/07/2018 Active XIFAXAN 550 MG tablet Take 1 tablet by mouth 2 times daily 90 tablet 3 08/27/2018 Active Additional Information Patient not taking.Reason: Other, Reported on 02/12/2024 HYDROcodone 10 MG CAPS cmpd capsule Take 1 (one) capsule by mouth 3 times daily as needed for Pain Active INSULIN SYRINGE/NEEDLE U-500 31G X 6MM 0.5 ML (BD INSULIN SYRINGE U-500) 31G X 6MM 0.5 ML MISC Use 1 syringe 4 times daily - before meals & nightly 100 Each 3 12/08/2018 Active blood glucose (TRUE METRIX BLOOD GLUCOSE TEST) test strip Use 1 strip 3 times daily 100 strip 11 12/08/2018 Active HUMULIN R U-500 KWIKPEN 500 UNIT/ML SOPN pen Take every 6 hours: 150 units in AM, 150 in afternoon, 150 in evening and 100 units at bedtime 12 Pen 5 12/23/2018 Active lactulose (CHRONULAC) 10 GM/15ML solutionIndications :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) Take 30 mL by mouth 4 times daily 1892 mL 3 01/11/2019 Active famotidine (Pepcid) 20 MG tablet 05/20/2023 Active pregabalin (Lyrica) 150 MG capsule 2 times daily Active Trulicity 0.75 MG/0.5ML injection 07/03/2023 Active polyethylene glycol 3350 (Miralax) 17 GM/SCOOP powder Take 17 (seventeen) g by mouth once daily Active metFORMIN (Glucophage) 500 MG tablet Take 1 (one) tablet by mouth 2 times daily with morning and evening meal Active ondansetron, disintegrating, (Zofran ODT) 4 MG tablet Take 1 (one) tablet by mouth every 6 hours as needed for Nausea/Vomiting Allow tablet to dissolve on the tongue Active Active Problems Problem Noted Date Diagnosed Date Biliary colic 07/21/2018 Gallstones 07/21/2018 Hypertension 07/21/2018 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-sided sc iatica 07/19/2018 Sacroiliac joint dysfunction of both sides 07/19 S/P TIPS (transjugular intrahepatic portosystemi c shunt) 06/08/2018 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 s/p TIPS in 2016. -RUQ today showing TIPS with slower velocity compared to 08/2017 but still patent, rec close FU. -rifaximin -holding lactulose for diarrhea -should have BB outpt Secondary esophageal varices 06/02/2018 Type 2 diabetes mellitus wit h complication, with long-term current use of insulin 05/24/2018 RUQ pain 10/11/2017 Resolved Problems Problem Noted Date Diagnosed Date Resolved Date Hepatic encephalopathy 07/21/201811/16 Nausea vomiting and diarrhea 02/02/2018 12/14/2018 Overview (11/16/2018): Last Assessment & Plan: Since last night. Now clinically improving. Afebrile but tachy. Giardia, cryptosporidium, c diff, stool O&P were neg. Amylase/lipase wnl. CT a/p not showing any notable finding. LFTs only slightly elevated. Pt tolerating normal diet currently. Most likely acute gastroenteritis. Although guaic + at OSH and pt reports streaks of blood in vomit, this is likely from repeated retching and given his stable clinical status and hgb 13, no c/f GIB at this time. -Bedside US not showing tappable pocket. Pt not c/o confusion or abd pain. Unlikely SBP -supportive tx - fluids, zofran, replete lytes Encounters Date Type Department Care Team Description 02/16/2024 Travel 02/12/2024 4:00 PM CDT - 02/12/2024 4:30 PM CDT Surgery [facility] ENDOSCOPY [address] [place] [phone] Gaby Mistry MD EGD w/ agbim 02/12/2024 1:52 PM CDT Anesthesia Event [facility] ENDOSCOPY [address] [place] [phone] Rangrass, MD Emmett Barros Amrita, MD 02/12/2024 11:04 AM CDT - 02/12/2024 2:45 PM CDT Hospital Encounter [facility] OP [address] [place] [address] Steve Bdeolla MD Surgery General Discharge Disposition: Home or Self Care 02/12/2024 Travel 01/22/2024 8:37 PM CDT - 01/22/2024 8:43 PM CDT Emergency [facility] EMERGENCY DEPARTMENT [address] [place] [address] Discharge Disposition: Left Against Medical Advice/Discontinued Care 01/22/2024 Travel from Last 3 Months Family History Medical History Relation Name Comments Cancer - Other Father Cancer - Other Maternal Grandfather Cancer - Other Maternal Grandmother Cancer - Other Mother Cancer - Other Paternal Grandfather Cancer - Other Paternal Grandmother Other - Hepatic/Liver Neg Hx Relation Name Status Comments Father Maternal Grandfather Maternal Grandmother Mother Paternal Grandfather Paternal Grandmother Social History Tobacco Use Types Packs/Day Years Used Date Smoking Tobacco: Former Smokeless Tobacco: Never Alcohol Use Standard Drinks/Week Comments No 0 (1 standard drink = 0.6 oz pur e alcohol) Sex and Gender Information Value Date Recorded Sex Assigned at Not on file Gender Identity Not on file Sexual Orientation Not on file Last Filed Vital Signs Vital Sign Reading Time Taken Comments Blood Pressure 132/106 02/12/2024 2:36 PM CDT Pulse 92 02/12/2024 2:36 PM CDT Temperature 36 ??C (96.8 ??F) 02/12/2024 2:16 PM CDT Respiratory Rate 18 02/12/2024 2:36 PM CDT Oxygen Saturation 95% 02/12/2024 2:36 PM CDT Inhaled Oxygen Concentration - - Weight 100.2 kg (221 lb) 02/16/2024 1:51 PM CDT Height 172.7 cm (5' 8 ) 02/16/2024 1:51 PM CDT Body Mass Index 33.6 02/16/2024 1:51 PM CDT Plan of Treatment Upcoming Encounters Date Type Department Care Team (Late st Contact Info) Description 02/17/2024 11:59 PM CDT Anesthesia Event [facility] [address] [place] [phone] Pushpa Frey, DO [address] [facility] [address] [address] 05/20/2024 12:30 PM DERMATOLOGY TEACHER Appointment [facility] [id number] [place] [phone] Steve Bedolla MD [address] [place] [phone] 06/30/2024 10:30 AM DERMATOLOGY TEACHER Office Visit [facility] - GI [address] [place] [address], [facility] [place] [place] [address] Steve Bedolla MD [address] [place] [phone] Health Maintenance Due Date Last Done Comments COLOGUARD (AGES 45-75) - COL ON CA SCREENING 1970 COLON MONITORING 1970 COLONOSCOPY - COLON CA SCREENING 1970 CT COLONOGRAPHY - COLON CA SCREENING 1970 Colorectal Cancer Screening 1970 FIT - COLON CA SCREENING 1970 FLEX SIG - COLON CA SCREENING 1970 PNEUMOCOCCAL VACCINE (1 of 2 - PCV) 1976 HIV SCREENING 1985 HEPATITIS C SCREENING 08/31/1988 DTAP/TDAP/TD VACCINES (1 - Tdap) 1989 HEPATITIS B VACCINE (1 of 3 - 19+ 3-dose series) 1989 DIABETES-STATIN 2010 DIABETES RETINOPATHY SCREENING 05/24/2018 DIABETES-NEPHROPATHY 05/24/2018 DIABETES-HGB A1C 11/21/2018 05/24/2018, 05/24/2018 DIABETES-FOOT EXAM WITH MONOFILAMENT 05/24/2019 05/24/2018 ZOSTER VACCINE (1 of 2) 2020 DEPRESSION SCREENING 05/04/2023 COVID-19 VACCINE (3 - 2023-2 5 season) 2024 12/29/2020, 12/08/2020 INFLUENZA VACCINE (#1) 2024 DIABETES-SERUM CREATININE 12/28/20242023, 07/14/2023, 06/25/2018 HIB VACCINE Aged Out No longer eligi ble based on patient's age to complete this topic HPV VACCINE Aged Out No longer eligi ble based on patient's age to complete this topic MENINGOCOCCAL VACCINE Aged Out No marcia rusty eligible based on patient's age to complete this topic Goals Goal Patient Goal Type Associated Problems [...] one week prior to your last dose Procedures Procedure Name Priority Date/Time Associated Diagnosis Comments [place] ED EGD FLEX TRANSORAL DX 02/12/2024 1:47 PM CDT Cirrhosis of liver without ascites, unspecified hepatic cirrhosis type (HCC) Special Needs Message Received: Yesterday Steve Bedolla MD P [facility] Schedulers - Endoscopy Pool Please set up this patient for EGD with me. Thanks Received Date Received Time Jan 11, 2024 5:33 PM EGD Routine 02/12/2024 1:40 PM CDT GLUCOSE - POINT OF CARE Routine 02/12/2024 1:17 PM CDT GLUCOSE - POINT OF CARE Routine 02/12/2024 11:47 AM CDT COMPREHENSIVE METABOLIC PANEL Routine 12/29/2023 1:12 PM CDT Cirrhosis of liver without ascites, unspecified hepatic cirrhosis type (HCC) HEMOGLOBIN A1C - POINT OF CARE (AMB) [facility] Routine 05/24/2018 Type 2 diabetes mellitus with complication, with long-term current use of insulin (HCC) from Last 3 Months or Most Recently Relevant to Health Maintenance Results * EGD (02/12/2024 1:40 PM CDT) Report Endoscopy POC Endoscopy Department Report _ Patient Name: Camilo Curry ?Procedure Date: 02/12/2024 1:40 PM ?Date of : 1970 Classification: Outpatient ?Gender: Male Ethnicity: Not or ? Race: White _ Providers: ?Gaby Mistry MD, Tyree Ramirez (Fellow) Referring MD: ? Braydon Pavon (Referring MD), Steve Bedolla MD Procedure: ?Upper GI endoscopy Indications: ?Follow-up of esophageal varices Medications: ?Monitored Anesthesia Care Description of Procedure: Pre-Anesthesia Assessment: ?- Prior to the procedure, a History and Physical ?was performed, and patient medications and ?allergies were reviewed. The patient's tolerance of ?previous anesthesia was also reviewed. The risks ?and benefits of the procedure and the sedation ?options and risks were discussed with the patient. ?All questions were answered, and informed consent ?was obtained. Prior Anticoagulants: The patient has ?taken no anticoagulant or antiplatelet agents. ASA ?Grade Assessment: III - A patient with severe ?systemic disease. After reviewing the risks and ?benefits, the patient was deemed in satisfactory ?condition to undergo the procedure. ?After obtaining informed consent, the endoscope was ?passed under direct vision. Throughout the ?procedure, the patient's blood pressure, pulse, and ?oxygen saturations were monitored continuously. The ?Endoscope was introduced through the mouth, and ?advanced to the second part of duodenum. The upper ?GI endoscopy was accomplished without difficulty. ?The patient tolerated the procedure well. ? Findings: ? Grade I, small (< 5 mm) varices were found in the lower third of the ? esophagus. ? The Z-line was irregular. ? Mild portal hypertensive gastropathy was found in the entire examined ? stomach. ? Two diminutive sessile polyps with no bleeding and no stigmata of recent ? bleeding were found in the gastric body. ? Patchy mildly erythematous mucosa without active bleeding and with no ? stigmata of bleeding was found in the first portion of the duodenum. ? The second portion of the duodenum was normal. ? Estimated Blood Loss: ? Estimated blood loss: none. Complications: ?No immediate complications. Impression: ? - Grade I and small (< 5 mm) esophageal varices. ?- Z-line irregular. ?- Portal hypertensive gastropathy. ?- Two gastric polyps. ?- Erythematous duodenopathy. ?- Normal second portion of the duodenum. ?- No specimens collected. Recommendation: ? - Discharge patient to home. ?- Resume previous diet. ?- Continue present medications. ?- Return to referring physician as previously ?scheduled. ?- Patient has a contact number available for ?emergencies. The signs and symptoms of potential ?delayed complications were discussed with the ?patient. Return to normal activities tomorrow. ?Written discharge instructions were provided to the ?patient. ? Attending Participation: ??I was present and participated during the entire ?procedure, including non-pereyra portions. ? Procedure Code(s): ? --- Professional --- ? 24801, Esophagogastroduo denoscopy, flexible, transoral; diagnostic, ? including collection of specimen(s) by brushing or washing, when ? performed (separate procedure) Diagnosis Code(s): ?--- Professional --- ?I85.00, Esophageal varices without bleeding ?K22.89, Other specified disease of esophagus ?K76.6, Portal hypertension ?K31.89, Other diseases of stomach and duodenum ?K31.7, Polyp of stomach and duodenum CPT copyright 2021 [employer]. All rights reserved. The codes documented in this report are preliminary and upon editor magazine review may be revised to meet current compliance requirements. Gaby Mistry MD 02/12/2024 2:13:14 PM This report has been signed electronically. Note Initiated On: 02/12/2024 1:40 PM Number of Addenda: 0 ? [facility] ? [address] [place] [address] [facility] 02/12/2024 1:40 PM CDT Gaby Mistry MD GI PROCEDURE ORDERAB LES Performing Organization Address City/[facility]/ZIP Co de Phone Number [facility] * (ABNORMAL) GLUCOSE - POINT OF CARE (02/12/2024 1:17 PM CDT) Only the most recent of2 resultswithin the time period is included. Pathologist [facility] Glucose WB/POC 277(H) 70 - 115 mg/dL 02/12/2024 1:18 PM CDT [facility]OR[facility] Specimen Type Cap Fingerstick 2023 1:18 PM CDT [facility] Blood BLOOD SPECIMEN / Unknown 02/12/2024 1:17 PM CDT 02/12/2024 1:18 PM CDT Steve Bedolla MD LAB - POINT OF CARE ORDERABLES [facility] [address] [place] [address], [facility] [phone] * (ABNORMAL) COMPREHENSIVE METABOLIC PANEL (12/29/2023 1:12 PM CDT) [facility] BUN 13 7 - 26 mg/dL 12/29/2023 2:07 PM CDT [facility] Creatinine 0.73 0.71 - 1.16 mg/dL 12/29/2023 2:07 PM CDT [facility] Sodium 138 136 - 145 mmol/L 12/29/2023 2:07 PM [facility] Potassium 4.8(H) 3.5 - 4.5 mmol/L 12/29/2023 2:07 PM [facility] Chloride 105 98 - 107 mmol/L 12/29/2023 2:07 PM [facility] CO2 25 22 - 29 mmol/L 12/29/2023 2:07 PM [facility] Glucose 362(H) 70 - 115 mg/dL 12/29/2023 2:07 PM [facility] Calcium 9.8 8.4 - 10.2 mg/dL 12/29/2023 2:07 PM [facility] Protein Total 7.0 6.0 - 8.3 g/dL 12/29/2023 2:07 PM [facility] Albumin 3.7 3.4 - 5.0 g/dL 12/29/2023 2:07 PM [facility] Bilirubin Total 3.2(H) 0.2 - 1.2 mg/dL 12/29/2023 2:07 PM [facility] Alkaline Phosphatase 89 40 - 150 U/L 12/29/2023 2:07 PM [facility] ALT 16 5 - 55 U/L 12/29/2023 2:07 PM [facility] AST 23 5 - 34 U/L 12/29/2023 2:07 PM [facility] Anion Gap 8 6 - 16 12/29/2023 2:07 PM [facility] BUN/Creatinine Ratio 18 7 - 23 12/29/2023 2:07 PM [facility] Osmolality Calculated 301(H) 275 - 295 mOsm/kg 12/29/2023 2:07 PM [facility] Albumin/Globulin Ratio 1.1 1.1 - 2.3 12/29/2023 2:07 PM [facility] eGFR by CKD-EPI >90 >=90 mL/min/1.7 3 m2 12/29/2023 2:07 PM [facility] Blood BLOOD SPECIMEN / Unknown Lab Venipuncture / Unknown 12/29/2023 1:12 PM CDT 12/29/2023 1:37 PM CDT Steve Bedolla MD LAB - CHEMISTRY LIONEL WHITT [facility] [address] [place] [address], [facility] [phone] * HEMOGLOBIN A1C - POINT OF CARE (AMB) [facility] (05/24/2018) Hemoglobin A1c POCT 8.2 BLOOD SPECIMEN / Unknown 05/24/2018 Edmond Choi MD LAB - POINT OF CARE ORDERABLES from Last 3 Months or Most Recently Relevant to Health Maintenance Care Teams Assembler Flexible Leads Relationship Specialty Start Date End Date Braydon Pavon PA [address] [place] [address] PCP - General Physician Flitch Hanger 07/14/23
--- OUTSIDE RECORDS SUMMARY | 2024-04-19 22:42 | XMS_ITS | Encounter Summary ---
Author Organization [facility] Address [facility]3 [facility] [place] [address] Care Team Providers Care Lifts And Cranes Inspector Name Role Phone Braydon Pavon Primary Care Provider [phone] Reason for Referral * Radiology Services (Routine) - Closed Specialty Diagnoses / Procedures Referred By Contac t Referred To Contact Ultrasound Diagnoses Hepatic cirrhosis, unspecified hepatic cirrhosis type, unspecified whether ascites present (HCC) S/P TIPS (transjugular intrahepatic portosystemic shunt) Fatty liver Procedures US TIPS W ABDOMEN LIMITED Riddhi Bello [address] [place] [address] Referral ID Status Reason Start Date Expiration Date Visits Re quested Visits Authorized [id number] Closed 06/22/2023 06/21/2024 1 1 Reason for Visit * Radiology Services (Routine) - Closed Specialty Diagnoses / Procedures Referred By Contac t Referred To Contact Ultrasound Diagnoses Hepatic cirrhosis, unspecified hepatic cirrhosis type, unspecified whether ascites present (HCC) S/P TIPS (transjugular intrahepatic portosystemic shunt) Fatty liver Procedures US TIPS W ABDOMEN LIMITED Riddhi Bello [address] [place] [address] Referral ID Status Reason Start Date Expiration Date Visits Re quested Visits Authorized [id number] Closed 06/22/2023 06/21/2024 1 1 Encounter Details Date Type Department Care Team (Latest Contact Info) Description 07/24/2023 8:51 AM CDT - 07/24/2023 11:59 PM CDT Hospital Encounter [address] [address] Discharge Disposition: Home or Self Care Social [...] daily 1892 mL 3 01/11/2019 pen needles 09/16 31G X 8 MM 31G X 8 [...] 50 UNITS IN THE EVENING 02/02/2023 02/16/2024 omeprazole (PRILOSEC) 20 MG capsule 05/05/2018 12/29/2023 ondansetron (ZOFRAN) 4 MG tablet 05/05/2018 02/16/2024 traMADol (Ultram) 50 MG tablet Take 1 (one) tablet by mouth 02/02/2023 02/16/2024 traZODone (Desyrel) 100 MG tablet Take 1 (one) tablet by mouth 2 times daily 02/02/2023 02/16/2024 documented as of this encounter Plan of Treatment Upcoming Encounters Date Type Department Care Team (Late st Contact Info) Description 02/17/2024 11:59 PM CDT Anesthesia Event [facility] MRI [address] [place] [phone] Pushpa Frey DO 3691 [facility] [address] [phone] 05/20/2024 12:30 PM DIRECTOR GAME Appointment [facility] [address] [place] [phone] Steve Bedolla MD [address] [place] [phone] 06/30/2024 10:30 AM DIRECTOR GAME Office Visit [facility] [address] [place] [address], [place] [phone] Steve Bedolla MD [address] [place] [phone] documented as of this encounter Goals Goal [...] Procedure Name Priority Date/Time Associated Diagnosis Comments US TIPS W ABDOMEN LIMITED Routine 07/24/2023 10:09 AM CDT Hepatic cirrhosis, unspecified hepatic cirrhosis type, unspecified whether ascites present (HCC) S/P TIPS (transjugular intrahepatic portosystemic shunt) Fatty liver documented in this encounter Results * US TIPS W ABDOMEN LIMITED (07/24/2023 10:09 AM CDT) Anatomical Region Laterality Modality Abdomen Ultrasound 07/24/2023 10:2 4 AM CDT Impressions 07/24/2023 10:40 AM CDT IMPRESSION: 1.Patent transjugular intrahepatic portosystemic shunt (TIPS). 2.Hepatic cirrhosis with sequela of portal venous hypertension. No solid hepatic observations to suggest hepatocellular carcinoma at this time. 3.No intra or extra hepatic bile duct dilatation. Normal gallbladder. > Interpreting Provider: Edinson Solano MD on 07/24/2023 10:40 AM Narrative 07/24/2023 10:40 AM CDT EXAMINATION: 1. Limited abdominal sonogram 2. Color and spectral Doppler evaluation of the hepatic vasculature HISTORY: K74.60: Hepatic cirrhosis, unspecified hepatic cirrhosis type, unspecified whether ascites present (HCC) Z95.828: S/P TIPS (transjugular intrahepatic portosystemic shunt) K76.0: Fatty liver COMPARISON: Tip sonogram dated 03/04/2023 FINDINGS: Abdomen: The pancreas is partially obscured. The liver demonstrates cirrhotic morphology. A simple cyst is seen in the right hemiliver. No solid hepatic observations are noted to suggest hepatocellular carcinoma. No intrahepatic or extra hepatic bile duct dilatation is noted. The common bile duct measures 4 mm, within normal limits. The gallbladder is normal. The right kidney measures 11.6 cm in length. Renal echogenicity and echotexture are normal. No hydronephrosis, nephrolithiasis, or solid renal mass is noted. A renal sinus cyst is noted. The spleen is enlarged measuring 17.1 cm in length. Liver Doppler: Proximal TIPS velocity: 93 cm/s (previously 101-148 cm/s) Middle TIPS velocity: 135 cm/s (previously 172 cm/s) Distal TIPS velocity: 113 cm/s (previously 114 cm/s) The TIPS is patent. There is reversal of flow in the left portal vein flow consistent with portosystemic shunting. The main portal vein velocity is 27 cm/s. The main portal vein is dilated measuring up to 2.0 cm, consistent with portal venous hypertension. The right, middle, and left hepatic veins are patent with normal waveforms. The proper hepatic artery is patent with normal arterial waveform and resistive index of 0.72. Procedure Note Edinson Solano MD - 07/24/2023 EXAMINATION: 1. Limited abdominal sonogram 2. Color and spectral Doppler evaluation of the hepatic vasculature HISTORY: K74.60: Hepatic cirrhosis, unspecified hepatic cirrhosis type, unspecified whether ascites present (HCC) Z95.828: S/P TIPS (transjugular intrahepatic portosystemic shunt) K76.0: Fatty liver COMPARISON: Tip sonogram dated 03/04/2023 FINDINGS: Abdomen: The pancreas is partially obscured. The liver demonstrates cirrhotic morphology. A simple cyst is seen inthe right hemiliver. No solid hepatic observations are noted to suggest hepatocellular carcinoma. No intrahepatic or extra hepatic bile duct dilatation is noted. Thecommon bile duct measures 4 mm, within normal limits. The gallbladder isnormal. The right kidney measures 11.6 cm in length. Renal echogenicity and echotexture are normal. No hydronephrosis, nephrolithiasis, or solidrenal mass is noted. A renal sinus cyst is noted. The spleen is enlarged measuring 17.1 cm in length. Liver Doppler: Proximal TIPS velocity: 93 cm/s (previously 101-148 cm/s) Middle TIPS velocity: 135 cm/s (previously 172 cm/s) Distal TIPS velocity: 113 cm/s (previously 114 cm/s) The TIPS is patent. There is reversal of flow in the left portal veinflow consistent with portosystemic shunting. The main portal vein velocity is27 cm/s. The main portal vein is dilated measuring up to 2.0 cm, consistent with portal venous hypertension. The right, middle, and left hepaticveins are patent with normal waveforms. The proper hepatic artery is patentwith normal arterial waveform and resistive index of 0.72. IMPRESSION: 1.Patent transjugular intrahepatic portosystemic shunt (TIPS). 2.Hepatic cirrhosis with sequela of portal venous hypertension. No solid hepatic observations to suggest hepatocellular carcinoma at this time. 3.No intra or extra hepatic bile duct dilatation. Normal gallbladder. > Interpreting Provider: Edinson Solano MD on 07/24/2023 10:40 AM Ordering Provider Unlisted ORDERAB LES documented in this encounter Visit Diagnoses Diagnosis Hepatic cirrhosis, unspecified hepatic cirrhosis type, unspecified whether ascites present (HCC) S/P TIPS (transjugular intrahepatic portosystemic shunt) Other postprocedural status Fatty liver Other chronic nonalcoholic liver disease documented in this encounter Care Teams Lifts And Cranes Inspector Relationship Specialty Start Date End Date Braydon Pavon PA [address] [place] [address] PCP - General Physician Client Services Account Manager 07/14/23 documented as of this encounter
--- OUTSIDE RECORDS SUMMARY | 2024-04-19 22:42 | XMS_ITS | Encounter Summary ---
Author Organization [facility] Address [facility]3 [facility] [place] [address] Care Team Providers Care Application Support Intern Name Role Phone Braydon Pavon Primary Care Provider [phone] Encounter Details Date Type Department Care Team (Latest Contact Info) Description 07/14/2023 Travel Social History Tobacco Use Types Packs/Day [...] Description 02/17/2024 11:59 PM CDT Anesthesia Event [facility] [address] [place] [phone] Pushpa Frey DO 3691 [facility] [address] [phone] 05/20/2024 12:30 PM GROCERY SACKER Appointment [facility] MRI [address] [place] [phone] Steve Bedolla MD [address] [place] [phone] 06/30/2024 10:30 AM GROCERY SACKER Office Visit [facility] - [address] [phone] Steve Bedolla MD [address] [place] [address] documented as of this encounter Goals Goal [...] on filedocumented in this encounter Care Teams Application Support Intern Relationship Specialty Start Date End Date Braydon Pavon PA [address] [place] [address] PCP - General Physician Manager Work 07/14/23 documented as of this encounter
--- OUTSIDE RECORDS SUMMARY | 2024-04-19 22:42 | XMS_ITS | Encounter Summary ---
Author Organization [facility] Address [facility]3 [facility] [place] [address] Care Team Providers Care Stranding Machine Operator Helper Name Role Phone Braydon Pavon Primary Care Provider [phone] Reason for Visit * Reason Comments Refill Request Encounter Details Date Type Department Care Team (Late Contact Info) Description 08/26/2018 Refill [facility] [address] [place] [address] Aleksandr Fink MD [address] [place] [address] Refill Request Social History Tobacco Use Types Packs/Day Years [...] Description 02/17/2024 11:59 PM CDT Anesthesia Event [facility] MRI [address] [place] [phone] Pushpa Frey DO [facility] [facility] [address] [phone] 05/20/2024 12:30 PM ERADICATOR Appointment [facility] MRI [address] [place] [address] Steve Bedolla MD [address] [place] [phone] 06/30/2024 10:30 AM ERADICATOR Office Visit [facility] - [address], [place] [address] Steve Bedolla MD [address] [place] [phone] documented as of this encounter Visit Diagnoses Not on filedocumented in this encounter Care Teams Stranding Machine Operator Helper Relationship Specialty Start Date End Date Braydon Pavon PA [address] [place] [address] PCP - General Physician Planer Setter 05/19/18 10/03/18 documented as of this encounter
--- OUTSIDE RECORDS SUMMARY | 2024-04-19 22:42 | XMS_ITS | Encounter Summary ---
Author Organization [facility] Address [address] [facility] [place] [address] Care Team Providers Care Cylinder Press Feeder Name Role Phone Nikolay Lancaster MD Primary Care Provider [phone] Encounter Details Date Type Department Care Team (Late Contact Info) Description 07/27/2020 Orders Only [facility] - COVID Vaccine [address] [place] [phone] Neeraj Vyas MD [address] [place] [address] Need for vaccination Social History Tobacco Use Types Packs/Day Years [...] Description 02/17/2024 11:59 PM CDT Anesthesia Event [facility] MRI [address] [place] [phone] Pushpa Frey DO [address] [facility] [address] [phone] 05/20/2024 12:30 PM HAND BOBBIN CLEANER Appointment [facility] MRI [address] [place] [phone] Setve Bedolla MD [address] [place] [phone] 06/30/2024 10:30 AM HAND BOBBIN CLEANER Office Visit [facility] - [address], [place] [phone] Steve Bedolla MD [address] [place] [phone] documented as of this encounter Visit Diagnoses Diagnosis Need for vaccination Need for prophylactic vaccination and inoculation against unspecified single disease documented in this encounter Care Teams Cylinder Press Feeder Relationship Specialty Start Date End Date Nikolay Lancaster MD [address] [place] [address] PCP - General 10/04/18 07/13/23 documented as of this encounter
--- OUTSIDE RECORDS SUMMARY | 2024-04-19 22:42 | XMS_ITS | Encounter Summary ---
Author Organization [facility] Address [facility]3 [place] [address] Care Team Providers Care Card Services Specialist Name Role Phone Nikolay Lancaster MD Primary Care Provider [phone] Reason for Visit * Reason Onset Date Comments MEDICATION REFILL 12/08/2018 Encounter Details Date Type Department Care Team (Late Contact Info) Description 12/08/2018 Refill [facility] Endocrinology, Diabetes and Metabolism [address] [place] [address] Edmond Choi MD [address] [address] MEDICATION REFILL Social History Tobacco Use Types Packs/Day Years [...] encounter Miscellaneous Notes * Telephone Encounter - Johnny Gonzalez - 12/08/2018 9:13 AM CDT ELSA 05/24/18 NOV not scheduled documented in this encounter Plan of Treatment Upcoming Encounters Date Type Department Care Team (Late Contact Info) Description 02/17/2024 11:59 PM CDT Anesthesia Event [facility] MRI [address] [place] [phone] RufinobrigidJanaycelso, DO 3691 [facility] [address] [phone] 05/20/2024 12:30 PM FLIGHT TEST DATA ACQUISITION TECHNICIAN Appointment [facility] MRI [address] [place] [phone] Steve Bedolla MD [facility] [place] [phone] 06/30/2024 10:30 AM FLIGHT TEST DATA ACQUISITION TECHNICIAN Office Visit [facility] - [address] [facility], [place] [address] Steve Bedolla MD [address] [place] [phone] documented as of this encounter Visit Diagnoses Not on filedocumented in this encounter Care Teams Card Services Specialist Relationship Specialty Start Date End Date Nikolay Lancaster MD [address] [place] [address] PCP - General 10/04/18 07/13/23 documented as of this encounter
--- OUTSIDE RECORDS SUMMARY | 2024-04-19 22:42 | XMS_ITS | Encounter Summary ---
Author Organization [facility] Address [address] [facility] [place] [address] Care Team Providers Care Child Care Specialist Name Role Phone Braydon Pavon Primary Care Provider [phone] Encounter Details Date Type Department Care Team (Late Contact Info) Description 09/09/2018 Orders Only [facility]ocr[facility], Diabetes and Metabolism [address] [place] [address] Edmond Choi MD [address] [address] Social History Tobacco Use Types Packs/Day Years [...] Description 02/17/2024 11:59 PM CDT Anesthesia Event [facility] MRI [address] [place] [phone] Pushpa Frey DO [address] [facility] [address] [phone] 05/20/2024 12:30 PM TIN TIE MACHINE OPERATOR AUTOMATIC Appointment [facility] MRI [address] [place] [phone] Steve Bedolla MD [address] [place] [phone] 06/30/2024 10:30 AM TIN TIE MACHINE OPERATOR AUTOMATIC Office Visit [facility] - [address], [place] [address] Steve Bedolla MD [address] [place] [phone] documented as of this encounter Visit Diagnoses Not on filedocumented in this encounter Care Teams Child Care Specialist Relationship Specialty Start Date End Date Braydon Pavon PA [address] [place] [address] PCP - General Physician Global Supply Chain Director 05/19/18 10/03/18 documented as of this encounter
--- OUTSIDE RECORDS SUMMARY | 2024-04-19 22:42 | XMS_ITS | Encounter Summary ---
Author Organization [facility] Address [facility] [place] [address] Care Team Providers Care Country Printer Apprentice Name Role Phone Braydon Pavon Primary Care Provider [phone] Reason for Visit * Reason Onset Date Comments MEDICATION REFILL 06/07/2018 Encounter Details Date Type Department Care Team (Late st Contact Info) Description 06/07/2018 Refill [facility] Endocrinology, Diabetes and Metabolism [address] [place] [address] Edmond Choi MD [address] [address] MEDICATION REFILL Social History Tobacco Use Types [...] encounter Miscellaneous Notes * Telephone Encounter - Mary Grace Paredes LPN - 06/07/2018 10:11 AM CST Called the pharmacy to inform of PA authorization. Pharmacist stated that they too were able to getan approval for the Humulin Kwickpen too. She stated that she is unsure how long that approval is valid for but would like to keep both vial and kwikpen options available for patient on file. Both called in to [facility] [phone] NCE BRIDGE INSPECTOR * Telephone Encounter - Mary Grace Paredes LPN - 06/07/2018 8:02 AM CST Different syringe type is needed for humulin RU 500 Please review and refill if appropriate NCE BRIDGE INSPECTOR documented in this encounter Plan of Treatment Upcoming Encounters Date Type Department Care Team (Late st Contact Info) Description 02/17/2024 11:59 PM CDT Anesthesia Event [facility] MRI [address] [place] [phone] Pushpa Frey, 3691 [facility] [address] [phone] 05/20/2024 12:30 PM BALANCE BRIDGE INSPECTOR Appointment [facility] MRI [address] [place] [phone] Steve Bedolla MD [address] [place] [phone] 06/30/2024 10:30 AM BALANCE BRIDGE INSPECTOR Office Visit [facility] - [address] [place] [address], [place] [phone] Steve Bedolla MD [address] [place] [phone] documented as of this encounter Visit Diagnoses Not on filedocumented in this encounter Care Teams Country Printer Apprentice Relationship Specialty Start Date End Date Braydon Pavon PA [address] [place] [address] PCP - General Physician Dish Person 05/19/18 10/03/18 documented as of this encounter
--- OUTSIDE RECORDS SUMMARY | 2024-04-19 22:42 | XMS_ITS | Encounter Summary ---
Author Organization [facility] Address [address] [facility] [address] Care Team Providers Care Live Study Manager Name Role Phone Braydon Pavon Primary Care Provider [phone] Reason for Visit * Reason Comments Pain Abdominal Pt BIBself c/o pain in LUQ, pt states where my liver is. Pt was at [facility] Thursday and Thursday for sedated MRI, could not receive one, and believes he still needs one. Pt has shunt and believes there may be a clog. Encounter Details Date Type Department Care Team (Late st Contact Info) Description 01/22/2024 8:37 PM CDT - 01/22/2024 8:43 PM CDT Emergency [facility] [address] [place] [phone] Discharge Disposition: Left Against Medical Advice/Discontinued Care Social History Tobacco Use Types Packs/Day [...] Sign Reading Time Taken Comments Blood Pressure 152/87 01/22/2024 1:49 PM CDT Pulse 94 01/22/2024 1:49 PM CDT Temperature 36.8 ??C (98.2 ??F) 01/22/2024 1:49 PM CD T Respiratory Rate 16 01/22/2024 1:49 PM CDT Oxygen Saturation 95% 01/22/2024 1:49 PM CDT Inhaled Oxygen Concentration - - Weight - - Height - - Body Mass Index - - documented in this encounter Medications at Time of Discharge [...] Use as directed 100 Each 3 06/07/2018 polyethylene glycol 3350 (Miralax) 17 GM/SCOOP powder Take 17 (seventeen) g by mouth once daily pregabalin (Lyrica) 150 MG capsule 2 times [...] 02/02/2023 02/16/2024 documented as of this encounter ED Notes * Inna Cannon - 01/22/2024 8:32 PM CDT Call x 3, no response. AMA uploaded. * Inna Cannon - 01/22/2024 8:02 PM CDT Call x 2, no response. * Inna Cannon - 01/22/2024 7:50 PM CDT Call x 1 during rounding, no pt found during roll call. * Steve Oconnor - 01/22/2024 6:05 PM CDT Call x 1 * Emily Bonilla RN - 01/22/2024 1:48 PM CDT Pt BIBself c/o pain in LUQ, pt states where my liver is. Pt was at [facility] Thursday and Thursday for sedated MRI, could not receive one, and believes he still needs one. Pt has shunt and believes there may be a clog. 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 s/p TIPS in 2016. -RUQ today showing TIPS with slower velocity compared to 08/2017 but still patent, rec close FU. -rifaximin -holding lactulose for diarrhea -should have BB outpt Mental health problem Nausea vomiting and diarrhea 02/02/2018 Last Assessment & Plan: Since last night. Now clinically improving. Afebrile but tachy. Giardia, cryptosporidium, c diff, stool O&P were neg. Amylase/lipase wnl. CT a/p not showing any notable finding. LFTs only slightly elevated. Pt tolerating normal diet currently. Most likely acute gastroenteritis. Although guaic + at OSH and pt reports streaks of blood in vomit, this is likely from rep eated retching and given his stable clinical status and hgb 13, no c/f GIB at this time. -Bedside US not showing tappable pocket. Pt not c/o confusion or abd pain. Unlikely SBP -supportive tx - fluids, zofran, replete lytes RUQ pain 10/11/2017 S/P TIPS (transjugular intrahepatic portosystemic shunt) 06/08/2018 Sacroiliac joint dysfunction of both sides 07/19/2018 Secondary esophageal varices (HCC) 06/02/2018 Type 2 diabetes mellitus with complication, with long-term current use of insulin (HCC) 05/24/2018 Past Surgical History: Procedure Laterality Date ENDOSCOPY, UPPER IR TIPS PROCEDURE documented in this encounter Plan of Treatment Upcoming Encounters Date Type Department Care Team (Late st Contact Info) Description 02/17/2024 11:59 PM CDT Anesthesia Event [facility] MRI [address] [place] [phone] Pushpa Frey, DO [address] [facility] [address] [phone] 05/20/2024 12:30 PM MONITORING COORDINATOR Appointment [facility] MRI [address] [place] [address] Steve Bedolla MD [address] [place] [address] 06/30/2024 10:30 AM MONITORING COORDINATOR Office Visit [facility] [address] [facility] [place] [address] Steve Bedolla MD [address] [place] [phone] documented as of this encounter Goals Goal [...] on filedocumented in this encounter Care Teams Live Study Manager Relationship Specialty Start Date End Date Braydon Pavon PA [address] [place] [address] PCP - General Physician Superintendent Plant 07/14/23 documented as of this encounter
--- OUTSIDE RECORDS SUMMARY | 2024-04-19 22:42 | XMS_ITS | Encounter Summary ---
Author Organization [facility] Address [facility] [place] [address] Care Team Providers Care Players Club Representative Name Role Phone Nikolay Lancaster MD Primary Care Provider [phone] Reason for Visit * Reason Onset Date Comments Results 10/07/2018 Encounter Details Date Type Department Care Team (Late st Contact Info) Description 10/07/2018 Telephone [facility] [address] [place] [address] Trice Blankenship APRN-CNP [address] [place] [address] Results Social History Tobacco Use Types Packs/Day Years [...] encounter Miscellaneous Notes * Telephone Encounter - Trice Blankenship APRN-CNP - 10/07/2018 8:54 AM CDT Notified of negative urine culture. Advised pt to increase water intake to ensure he is staying well hydrated. Pt verbalized understanding. BRADLEY Haney 10/07/2018 8:55 AM documented in this encounter Plan of Treatment Upcoming Encounters Date Type Department Care Team (Late st Contact Info) Description 02/17/2024 11:59 PM CDT Anesthesia Event [facility] [address] [place] [phone] Pushpa Frey, [address] [facility] [address] [phone] 05/20/2024 12:30 PM SENIOR DATABASE ENGINEER Appointment [facility] [address] [place] [phone] Steve Bedolla MD [address] [place] [phone] 06/30/2024 10:30 AM SENIOR DATABASE ENGINEER Office Visit [facility] - [address] [place] [address], [place] [phone] Steve Bedolla MD [address] [place] [phone] documented as of this encounter Visit Diagnoses Not on filedocumented in this encounter Care Teams Players Club Representative Relationship Specialty Start Date End Date Nikolay Lancaster MD [address] [place] [address] PCP - General 10/04/18 07/13/23 documented as of this encounter
--- OUTSIDE RECORDS SUMMARY | 2024-04-19 22:42 | XMS_ITS | Encounter Summary ---
Author Organization [facility] Address [facility] [place] [address] Care Team Providers Care Remote Control Mirror Installer Name Role Phone Nikolay Lancaster MD Primary Care Provider [phone] Reason for Visit * Reason Comments Establish Care Pain with urination Encounter Details Date Type Department Care Team (Late st Contact Info) Description 10/04/2018 1:00 PM CDT Office Visit [facility] [address] [place] [address] Trice Blankenship, RACKMAN-QUALITY ASSURANCE ADVISOR [address] [place] [address] Dysuria (Primary Dx); Nocturia; Lower urinary tract symptoms (LUTS) Social History Tobacco Use Types Packs/Day Years [...] Sign Reading Time Taken Comments Blood Pressure 143/73 10/04/2018 1:08 PM CDT Pulse 96 10/04/2018 1:08 PM CDT Temperature - - Respiratory Rate - - Oxygen Saturation 97% 10/04/2018 1:08 PM CDT Inhaled Oxygen Concentration - - Weight 124.3 kg (274 lb) 10/04/2018 1:08 PM CDT Height 172.7 cm (5' 8 ) 10/04/2018 1:08 PM CDT Body Mass Index 41.66 10/04/2018 1:08 PM CDT documented in this encounter Patient Instructions * Patient Instructions* Trice Blankenship APRN-QUALITY ASSURANCE ADVISOR - 10/04/2018 1:58 PM CDT Seek medical attention for fever, chills, worsening of blood in urine, abdominal pain and flank pain. Dysuria WHAT YOU NEED TO KNOW: What is dysuria? Dysuria is difficulty urinating, or pain, burning, or discomfort when you urinate.Dysuria is usually a symptom of another problem. What causes dysuria? The following are the most common causes of dysuria: ?? Infections, such as urinary tract infections and sexually transmitted infections ?? Trauma, such as bicycle injury or sexual abuse ?? Abnormal structure, such as narrowing of the urethra ?? Blockage, such as kidney stones ?? Medical conditions, such as constipation, enlarged prostate, and reactive arthritis ?? Chemicals, such as douches, spermicides, and bubble bath ?? Medicines, such as chemotherapy What increases my risk for dysuria? ?? Dehydration ?? Loss of bladder muscle strength due to older age ?? Holding urine in your bladder for a long period of time ?? Caffeine, soda, alcohol, and citrus drinks What other symptoms may I have with dysuria? ?? Fever ?? Cloudy, bad smelling urine ?? Urge to urinate often but urinating little ?? Back, side, or abdominal pain ?? Blood in your urine ?? Discharge that smells bad ?? Itching ?? Swelling of your genitals ?? Pain with ejaculation or bowel movement (for males) How is dysuria diagnosed? Your healthcare provider will examine you and ask about your symptoms. Tell your healthcare provider about any medicines you are taking. You may need any of the following tofind the cause of your dysuria: ?? A urine test may be done to look for bacteria, blood, or pus. ?? A blood test may be done to look for signs of infection. ?? A cystoscopy allows healthcare providers to look for problems inside your bladder. A scope is put into your bladder through your urethra. The scope is a flexible tube with a light and camera on the end. ?? An ultrasound uses sound waves to show pictures on a monitor. An ultrasound may be done to show problems in your bladder. How is dysuria treated? Treatment will depend on what is causing your dysuria. Your healthcare provider may refer you to a specialist, such as a urologist or a pigskin trimmer. You may need medicines tohelp treat a bacterial infection or help decrease bladder spasms. How can I manage my dysuria? ?? Drink more liquids. Liquids help flush out bacteria that may be causing an infection. Ask your healthcare provider how much liquid to drink each day and which liquids are best for you. ?? Take sitz baths as directed. Fill a bathtub with 4 to 6 inches of warm water. You may also use asitz bath pavon that fits over a toilet. Sit in the sitz bath for 20 minutes. Do this 2 to 3 times a day, or as directed. The warm water can help decrease pain and swelling. When should I seek immediate care? ?? You have severe back, side, or abdominal pain. ?? You have fever and shaking chills. ?? You vomit several times in a row. When should I contact my healthcare provider? ?? Your symptoms do not go away, even after treatment. ?? You have questions or concerns about your condition or care. CARE AGREEMENT: You have the right to help plan your care. Learn about your health condition and how it may be treated. Discuss treatment options with your healthcare providers to decide what care you want to receive. You always have the right to refuse treatment. The above information is an personal care aid only. It is not intended as medical advice for individual conditions or treatments. Talk to your doctor, nurse or pharmacist before following any medical regimen to see if it is safe and effective for you. ?? Copyright [employer] 2019 Information is for End User's use only and may not be sold, redistributed or otherwise used for commercial purposes. All illustrations and images included in CareNotes?? are the copyrighted property of [employer] or [employer] Polyuria WHAT YOU NEED TO KNOW: What is polyuria? Polyuria is a condition that causes you to urinate an abnormally large amount of urine. You may urinate more often during the day and at night. What increases my risk of polyuria? ?? Drinking large amounts of caffeine and alcohol ?? Medicines, such as diuretics or antiseizure medicines ?? Dye used during imaging tests, such as CT scans ?? Medical conditions, such as diabetes, heart failure, and kidney disease ?? Excessive thirst caused by diabetes insipidus How is polyuria diagnosed? Your healthcare provider will examine you and ask about your symptoms. He will ask if you have any health conditions. Tell him if you take any medicines or supplements. Your healthcare provider will ask about the amount and types of liquids you drink each day. He may request blood or urine tests to find the cause of your polyuria. How is polyuria treated? Treatment for polyuria depends on the cause. If you have a condition that causes you polyuria, your condition will be treated. If you have a medicine that causes your polyuria, your medicine may need to be changed. How can I manage polyuria? ?? Limit caffeine and alcohol. These may make your polyuria worse. ?? Drink enough liquids. Polyuria can lead to dehydration. Ask your healthcare provider how much liquids you should drink each day. ?? Keep track of how often and how much you urinate. Your healthcare provider may also ask you to keep track of the type of liquids you drink each day. Ask him how to measure the amount you urinate. ?? Weigh yourself each day. Polyuria or certain medical conditions that cause polyuria can lead to weight loss. When should I contact my healthcare provider? ?? You lose weight without trying. ?? Your symptoms do not improve, or they get worse, even with treatment. ?? You have questions or concerns about your condition or care. When should I seek immediate care or call 911? ?? You have blood in your urine. ?? You have symptoms of dehydration, such as dark yellow urine, dry mouth and lips, and dry skin. CARE AGREEMENT: You have the right to help plan your care. Learn about your health condition and how it may be treated. Discuss treatment options with your healthcare providers to decide what care you want to receive. You always have the right to refuse treatment. The above information is an personal care aid only. It is not intended as medical advice for individual conditions or treatments. Talk to your doctor, nurse or pharmacist before following any medical regimen to see if it is safe and effective for you. ?? Copyright [employer] 2019 Information is for End User's use only and may not be sold, redistributed or otherwise used for commercial purposes. All illustrations and images included in CareNotes?? are the copyrighted property of [employer] or [employer] documented in this encounter Progress Notes * Trice Blankenship APRN-CNP - 10/04/2018 2:19 PM CDT [facility] BRADLEY Haney Date of Visit: 10/04/2018 Patient Name: Camilo Curry : 1970 Medical Record: [id number] Contact (home) Age: [age] year old Sex: male Referring Physician: Nikolay Lancaster MD [address] [place] [address] Chief Complaint: Chief Complaint Patient presents with ??? Establish Care Pain with urination History of Present Illness: The patient is a 48 year oldmale who presents for new evaluation and treatment of dysuria. Pt had aculture proven UTI on 09/19/18 (50,000-100,000 CFU/ML of enterococcus). Reports that he was treated with Macrobid and just completed the antibiotics. Pt also had a CT abd/pelvis in August d/t abomdinalpain that did not reveal any acute abdominal process. Still with c/o intermittent dysuria at end ofurine stream; also urinary frequency and nocturia x 5+ per night. Denies urgency, suprapubic pain, feelings of incomplete emptying or gross hematuria; no fever or chills reported when UTI symptoms were present. Pt is a poorly controlled Type 2 Diabetic; also with h/o of liver cirrhosis secondary toNASH. He also reports being diagnosed with TRACY in 2013 and was treated with a CPAP for 4 years but reportedly got rid of the machine because it didn't work, and has been denied a repeat sleep studysince. AUA SS: 0+4+0+0+0+0+5= 9 QOL: 5 Past Medical History; Past Medical History: Diagnosis Date ??? Anxiety ??? Chronic back pain ??? Depression ??? Diabetes ??? Liver cirrhosis ??? Mental health problem ??? Sleep apnea Past Surgical History: Past Surgical History: Procedure Laterality Date ??? ENDOSCOPY, UPPER ??? IR TIPS PROCEDURE Current Medications: Current Outpatient Prescriptions Medication Sig Dispense Refill ??? acetaminophen-codeine (TYLENOL #3) 300-30 MG tablet ??? alfuzosin CR 24hr (UROXATRAL) 10 MG tablet Take 1 tablet by mouth once daily 30 tablet 0 ??? ALPRAZolam (XANAX) 0.5 MG tablet Take 0.5 mg by mouth 3 times daily as needed for Anxiety ??? HUMULIN R U-500 KWIKPEN 500 UNIT/ML SOPN pen Take every 6 hours: 150 units in AM, 150 in afternoon, 150 in evening and 100 units at bedtime 12 Pen 5 ??? hydroCHLOROthiazide (HYDRODIURIL) 25 MG tablet Take 1 tablet by mouth once daily 30 tablet 4 ??? HYDROcodone 10 MG CAPS cmpd capsule Take 10 mg by mouth 3 times daily as needed for Pain ??? INSULIN SYRINGE/NEEDLE U-500 31G X 6MM 0.5 ML (BD INSULIN SYRINGE U-500) 31G X 6MM 0.5 ML MISC Use 1 syringe 4 times daily - before meals & nightly 100 Each 3 ??? lactulose (CHRONULAC) 10 GM/15ML solution Take 30 mL by mouth 4 times daily 1892 mL 3 ??? metFORMIN ER 24hr (GLUCOPHAGE XR) 500 MG tablet Take 2 tablets by mouth daily with dinner 60 tablet 5 ??? nitrofurantoin monohyd macro crystals (MACROBID) 100 MG capsule ??? omeprazole (PRILOSEC) 20 MG capsule ??? ondansetron (ZOFRAN) 4 MG tablet ??? MonkimunUCH ULTRA TEST STRIPS test strip Use 1 strip 3 times daily 100 strip 5 ??? pen needles 5/16 31G X 8 MM 31G X 8 MM Use as directed 100 Each 3 ??? XIFAXAN 550 MG tablet Take 1 tablet by mouth 2 times daily 90 tablet 3 No current facility-administered medications for this visit. Allergies; Pcn [penicillins]; Duloxetine; Iv contrast [contrast-iodinated agents for ct/other]; Nexium [esomeprazole]; Sulfa drugs; Azactam [aztreonam in dextrose]; Aztreonam; Ciprofloxacin; Erythromycin; and Octreotide Family History: Family History Problem Relation Age of Onset ??? Cancer - Other Mother ??? Cancer - Other Father ??? Cancer - Other Maternal Grandmother ??? Cancer - Other Maternal Grandfather ??? Cancer - Other Paternal Grandmother ??? Cancer - Other Paternal Grandfather Social History: Social History Social History ??? Marital status: Legally Spouse name: N/A ??? Number of children: N/A ??? Years of education: N/A Occupational History ??? Not on file. Social History Main Topics ??? Smoking status: Former Smoker ??? Smokeless tobacco: Never Used ??? Alcohol use No ??? Drug use: No ??? Sexual activity: Not on file Other Topics Concern ??? Not on file Social History Narrative Review of Systems: Positives in BOLD General: Negative appetite change, fatigue, fever, sweats, weight loss, weight gain Skin: Negative itching, rashes, mole changes Eyes: Positive vision changes; Negative cataracts Ears/Nose/Throat: Negative hearing loss Lungs: Negative coughing, wheezing, shortness of breath, coughing blood Heart: Negative chest pain, palpitations, fainting episodes, sleeping with multiple pillows Gastrointestinal: Negative abdominal pain, nausea, vomiting, diarrhea, constipation, jaundice, black stool, blood in stool, difficulty swallowing Genitourinary: Positive dysuria (intermittent at end of stream), frequency, nocturia x5+; Negative urgency, decreased urine stream, post void dribbling, incontinence of urine, gross hematuria, flank pain, kidney stones, Musculoskeletal: Negative arthritis, stiffness, and swelling Nervous system: Positive headache, memory loss, numbness/tingling; negative seizure, tinnitus Psychiatric system: Positive anxiety, depression; negative suicidal thoughts Male Reproductive system: Negative testicular pain, abnormal bleeding, sexual dysfunction Hematologic: Negative easy bruising, bleeding, recurrent infection Lymphatic: Negative enlargement, tenderness Endocrine: Negative heat or cold intolerance, excessive thirst Physical Exam: Gen: Well developed in NAD; obese Head: normocephalic Lungs: Non-labored respirations Heart: RRR Abd: soft, nontender, nondistended : Right CVA tenderness, no left CVA tenderness; Mild suprapubic pain TTP MSK: Back is straight and non-tender; good ROM of upper and lower extremities Neuro/Psych: Gait normal. Reflexes appear visually normal and symmetric. Sensation grossly WNL. Skin: Warm, dry, intact Vital Signs: BP 143/73 (BP SITE: LEFT ARM) Pulse 96 Ht 5' 8 (1.727 m) Wt 274 lb (124.3 kg) SpO2 97% BMI 41.66 kg/m2 PVR per bladder scanner: 20 ml Imaging ( reports reviewed): CT Scan Abd/Pel w/o contrast 08/18/18- Report reviewed. Impression: (Read by Dr. Sadi Alejandro; no image available) 1. No acute abdominal abnormality. Laboratory Studies: Office Visit on 10/04/18 URINALYSIS AUTO - POINT OF CARE (AMB) [facility] Result Value Ref Range Glucose UA 3 Bilirubin UA POCT neg Ketones UA POCT trace Specific [place] UA 1.020 Blood Urine POCT neg pH UA 6.0 Protein UA neg Urobilinogen UA 1 Nitrite UA neg WBC UA neg Microbiology: 09/19/18- 50,000-100,000 CFU/ML of enterococcus Pathology: No pertinent pathology Diagnosis: 48 y/o male with dysuria, nocturia and LUTS Recommendations: 1. Urine culture ordered, but UA not concerning for UTI. Will await culture results and do not recommend empiric antibiootic treatment d/t c/o dysuria. . 2. Etiology of nocturia is likely multifactorial, but may have contribution from untreated obstructive sleep apnea (TRACY). Nocturia occurs in approximately 50% of patients with TRACY. With CPAP treatment, urine production is reduced by half, and awakenings to urinate are reduced by two-thirds. Referral placed for sleep medicine. 3. AUA guidelines recommend with basic management of LUTS/BPH to start with limiting fluid intake, lifestyle modifications, and alphablocker. Discussed behavior and lifestyle modifications recommended for LUTS/OAB. Encouraged fluid intake 3 hours prior to bedtime, avoiding foods and beverages known to trigger OAB- including citric fruits/juicies; caffeine; processed foods such as preserved meats, pickles, etc; tomato based foods/products; spicy foods; avoid excess vitamin C; carbonated beverages; alcoholic beverages; aspartame. Will start Alfuzosin 10 mg PO daily x 30 days. If pt has noticible improvement in urinary complaints will continue. Stressed that he needs to make lifestyle modifications to include better control ofhis blood glucose levels, decreasing carbonated and caffeine products, and eliminating citric juices. 4. Seek medical attention for fever, chills, blood in urine, abdominal pain and flank pain. Will call pt with urine culture results; otherwise follow up in 1 month with AUA SS, UA, and PVR. 30 minutes were spent with patient. >50% were spent counseling patient. Patient's questions were answered and patient agrees with plan. BRADLEY Haney 10/04/2018 2:44 PM documented in this encounter Plan of Treatment Upcoming Encounters Date Type Department Care Team (Late st Contact Info) Description 02/17/2024 11:59 PM CDT Anesthesia Event [facility] [address] [place] [phone] Pushpa Frey DO [address] [facility] DEPT [address] [phone] 05/20/2024 12:30 PM CREATIVE ENGAGEMENT DIRECTOR Appointment [facility] [address] [place] [phone] Steve Bedolla MD [address] [place] [phone] 06/30/2024 10:30 AM CREATIVE ENGAGEMENT DIRECTOR Office Visit [facility] - [address], [place] [phone] Steve Bedolla MD [address] [place] [phone] Scheduled Orders Name Type Priority Associated Diagnoses Orde r Schedule CULTURE URINE Microbiology Routine Dysuria Ordered: 10/04/2018 documented as of this encounter Procedures Procedure Name Priority Date/Time Associated Diagnosis Comments URINALYSIS AUTO - POINT OF CARE (AMB) [facility] Routine 10/04/2018 1:23 PM CDT Dysuria documented in this encounter Results * URINALYSIS AUTO - POINT OF CARE (AMB) [facility] (10/04/2018 1:23 PM CDT) Glucose UA 3 Bilirubin UA POCT neg Ketones UA POCT trace Specific [place] UA 1.020 Blood Urine POCT neg pH UA 6.0 Protein UA neg Urobilinogen UA 1 Nitrite UA neg WBC UA neg Urine URINE / Unknown 10/04/2018 1 :23 PM CDT Trice Blankenship RACKMAN-QUALITY ASSURANCE ADVISOR LAB - POINT OF C ARE ORDERABLES documented in this encounter Visit Diagnoses Diagnosis Dysuria- Primary Nocturia Lower urinary tract symptoms (LUTS) Other symptoms involving urinary system documented in this encounter Care Teams Remote Control Mirror Installer Relationship Specialty Start Date End Date Nikolay Lancaster MD [address] [place] [address] PCP - General 10/04/18 07/13/23 documented as of this encounter
--- OUTSIDE RECORDS SUMMARY | 2024-04-19 22:42 | XMS_ITS | Encounter Summary ---
Author Organization [facility] Address [facility] [address] Care Team Providers Care Tour Leader Name Role Phone Braydon Pavon Primary Care Provider [phone] Encounter Details Date Type Department Care Team (Late st Contact Info) Description 06/07/2018 Orders Only [facility] [address] [place] [address] Mary Grace Paredes LPN Social History Tobacco Use Types Packs/Day Years [...] Description 02/17/2024 11:59 PM CDT Anesthesia Event [facility] [address] [place] [phone] Pushpa Frey DO [address] [facility] [address] [phone] 05/20/2024 12:30 PM STEAM TENDER Appointment [facility] MRI [address] [place] [phone] Steve Bedolla MD [address] [place] [phone] 06/30/2024 10:30 AM STEAM TENDER Office Visit [facility] [place] [address] [facility], [place] [address] Steve Bedolla MD [address] [place] [phone] documented as of this encounter Visit Diagnoses Not on filedocumented in this encounter Care Teams Tour Leader Relationship Specialty Start Date End Date Braydon Pavon PA [address] [place] [address] PCP - General Physician White Sugar Supervisor 05/19/18 10/03/18 documented as of this encounter
--- OUTSIDE RECORDS SUMMARY | 2024-04-19 22:42 | XMS_ITS | Encounter Summary ---
Author Organization [facility] Address [address] [facility] [place] [address] Care Team Providers Care Looper Fixer Name Role Phone Braydon Pavon Primary Care Provider [phone] Encounter Details Date Type Department Care Team (Latest Contact Info) Description 02/12/2024 Travel Social History Tobacco Use Types Packs/Day [...] Anesthesia Event [facility] MRI [address] [place] [phone] Pushpa Frey, DO [address] [facility] [address] [phone] 05/20/2024 12:30 PM CLIN ASST Appointment [facility] MRI [address] [place] [address] Steve Bedolla MD [address] [place] [address] 06/30/2024 10:30 AM CLIN ASST Office Visit [facility] - [place] [address] [facility], [place] [address] Steve Bedolla MD [address] [place] [address] documented as of this encounter [...] on filedocumented in this encounter Care Teams Looper Fixer Relationship Specialty Start Date End Date Braydon Pavon PA [address] [place] [address] PCP - General Physician Lobster Fisherman 07/14/23 documented as of this encounter
--- OUTSIDE RECORDS SUMMARY | 2024-04-19 22:42 | XMS_ITS | Encounter Summary ---
Author Organization [facility] Address [facility] [facility] [place] [address] Care Team Providers Care Replanting Machine Operator Name Role Phone Braydon Pavon Primary Care Provider [phone] Encounter Details Date Type Department Care Team (Latest Contact Info) Description 01/22/2024 Travel Social History Tobacco Use Types Packs/Day [...] Description 02/17/2024 11:59 PM CDT Anesthesia Event [facility] [address] [place] [phone] Pushpa Frey DO [address] [facility] [address] [phone] 05/20/2024 12:30 PM MOTH PROOFER Appointment [facility] MRI [address] [place] [phone] Steve Bedolla MD [address] [place] [phone] 06/30/2024 10:30 AM MOTH PROOFER Office Visit [facility] - [address] [phone] Steve Bedolla MD [address] [place] [address] documented as of this encounter Goals Goal [...] on filedocumented in this encounter Care Teams Replanting Machine Operator Relationship Specialty Start Date End Date Braydon Pavon PA [address] [place] [address] PCP - General Physician Fabric Worker 07/14/23 documented as of this encounter
--- OUTSIDE RECORDS SUMMARY | 2024-04-19 22:42 | XMS_ITS | Encounter Summary ---
Author Organization [facility] Address [facility]3 [place] [address] Care Team Providers Care Rehabilitation Clerk Name Role Phone Braydon Pavon Primary Care Provider [phone] Reason for Visit * Auth/Cert (Routine) Specialty Diagnoses / Procedures Referred By Contac t Referred To Contact Diagnoses Cirrhosis of liver without ascites, unspecified hepatic cirrhosis type (HCC) Procedures [place] [facility] EGD FLEX TRANSORAL DX EGD w/ agbim ESOPHAGOGASTRODUODENOSCOPY (EGD) DIAGNOSTIC Referral ID Status Reason Start Date Expiration Date Visits Re quested Visits Authorized [id number] 1 1 Encounter Details Date Type Department Care Team (Late st Contact Info) Description 02/12/2024 1:52 PM CDT Anesthesia Event [facility] ENDOSCOPY [address] [place] [address] [place] [address] [place] [phone] Catherine Lopez MD [address] [place] [address] Anesthesia Record Procedure Summary Procedure Name Responsible Anesthesiologist Anesthesia Start Time Anesthesia Stop Time EGD w/ agbim (Esophagus) Papo Kelly MD 02/12/24 1352 02/12/24 1413 Events Date Time Event Comment 02/12/2024 1229 1352 An Start 1352 Pt In Room 1352 An Start Data 1353 PT Reassessment 1353 Timeout Anesthesia part icipated in timeout at the time documented in the record by nursing. 1355 Induction 1356 Anes Ready 1356 Proc Start 1402 Proc Stop 1405 An Emergence 1413 an stop data 1413 Pt out of Room 1413 An Stop Meds Name Total lidocaine PF 2% 50 mg propofol 200mg/20mL injection 100 mg propofol 500 mg/50 mL injection 100.2 mg NS (0.9% NaCl) 0 mL * Agents Name Insp. N2O Exp. N2O O2 Flow - Auxiliary O2 * Blood No blood administrations on file. Lines, Drains, and Airways Type Details Placement Removal Personal Glucose Monitor Left, Upper; Arm; 02/12/24; 204402/12/24 1207 by 02/12/24 204 by Generic, Auto Release Peripheral IV Date: 02/12/24; Time: 1204; Orientation: Right; Location: Antecubital; Gauge: 20 G 02/12/24 1204 by Brianna Lopez RN 02/12/24 1443 by Trice Fletcher RN documented in this encounter Social History Tobacco Use Types Packs/Day Years [...] No 02/12/2024 documented as of this encounter Progress Notes * Papo Kelly MD - 02/12/2024 3:52 PM CDT ANESTHESIA POSTOP EVALUATION NOTE Procedure: EGD w/ agbim (Esophagus) Camilo Curry is a 53 year old male No data found. Anesthesia Type: general Pre-op Diagnosis Codes: * Cirrhosis of liver without ascites, unspecified hepatic cirrhosis type (HCC) [K74.60] Mental Status: awake Neuro Status: No numbness, tingling or visual disturbances Respiratory Function: natural Cardiac Function: stable Postop Pain: acceptable to the patient Postop Hydration: adequate Postop Nausea: none Assessment: no apparent anesthetic complications Patient Disposition: Release from Anesthesia Care Additional Comments: Patient reports that pain is well-controlled and is ready for discharge to thenext level of care. NOTABLE EVENTS: No notable events documented. * Catherine Lopez MD - 02/12/2024 11:48 AM CDT ANESTHESIA PREOPERATIVE EVALUATION NOTE Procedure: EGD w/ agbim (Esophagus) Vitals: No data found. LMP: No LMP for male patient. OB Status: unknown ANESTHESIA PRE-EVALUATION NOTE History of Present Illness: 53 M for EGD for esophageal varices. 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 Other Findings: Labs 12/29/23: K 4.8, Cr 0.73, nl LFTs, Hg 15.8, plt 84 ANESTHESIA PLAN ASA Score: 3 NPO Status: No solids since midnight Anesthesia Plan: general and TIVA Planned Induction: intravenous Planned Postop Destination: endo Anesthetic plan was discussed with: patient Anesthetic Plan discussion was: Consented The patient's procedural Anesthetic Plan was discussed with the anesthesiologist real estate administrative assistant and MASTER MACHINIST. Overall additional findings/comments: Blood sugar elevated, insulin given. Patient states he tends to run in high 200s and 300s normally. BMP with BS in high 200s in December without evidence of DKA. Patient denies any h/o DKA, denies symptoms nausea, vomiting, abdominal pain. . BMI, Height, Weight Tobacco History Estimated body mass index is 34.61 kg/m?? as calculated from the following: Height as of 12/29/23: 1.702 m (5' 7 ). Weight as of 12/29/23: 100.2 kg (221 lb). Social History Tobacco Use Smoking Status Former Smokeless Tobacco Never Alcohol History Drug History Social History Substance and Sexual Activity Alcohol Use No Social History Substance and Sexual Activity Drug Use No Outpatient Medications: Inpatient Medications: No outpatient medications have been marked as taking for the 02/12/24 encounter (Hospital Encounter). No current facility-administered medications for this encounter. Allergies: Allergies Allergen Reactions Pcn [Penicillins] Shortness of Breath Duloxetine Urticaria Iv Contrast [Contrast-Iodinated Agents For Ct/Other] Rash Nexium [Esomeprazole] Urticaria Sulfa Drugs Urticaria Azactam [Aztreonam In Dextrose] Urticaria Aztreonam Urticaria Ciprofloxacin Urticaria Erythromycin Urticaria Octreotide Urticaria Relevant Problems Problem List: Patient Active Problem List Diagnosis Date Noted Biliary colic 07/21/2018 Priority: Not Prioritized Gallstones 07/21/2018 Priority: Not Prioritized Hypertension 07/21/2018 Priority: Not Prioritized 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-sided sciatica 07/19/2018 Priority: Not Prioritized Sacroiliac joint dysfunction of both sides 07/19/2018 Priority: Not Prioritized S/P TIPS (transjugular intrahepatic portosystemic shunt) 06/08/2018 Priority: Not Prioritized 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 s/p TIPS in 2016. -RUQ today showing TIPS with slower velocity compared to 08/2017 but still patent, rec close FU. -rifaximin -holding lactulose for diarrhea -should have BB outpt Secondary esophageal varices (HCC) 06/02/2018 Priority: Not Prioritized Type 2 diabetes mellitus with complication, with long-term current use of insulin (HCC) 05/24/2018 Priority: Not Prioritized RUQ pain 10/11/2017 Priority: Not Prioritized Medical History: Past Medical History: Diagnosis Date Anxiety Biliary [...] long-term current use of insulin (HCC) 05/24/2018 Surgical History: Past Surgical History: Procedure Laterality Date ENDOSCOPY, UPPER IR TIPS PROCEDURE MIXER SLAGMAN Status: No LMP for male patient. unknown OB History No obstetric history on file. Covid Vaccine: Lab Results: Recent Labs Component Name 12/29/23 1312 WBC 4.2 RBC 5.58 HCT 44.7 HGB 15.8 PLTCOUNT 84* MCV 80.1 MCH 28.3 MCHC 35.3 MPV 10.0 Recent Labs Component Name 12/29/23 1312 POTASSIUM 4.8* CALCIUM 9.8 CO2 25 GLUCOSE 362* BUN 13 CREATININE 0.73 Recent Labs Component Name 12/29/23 1312 PT 13.9 INR 1.1 No results found for requested labs within last 120 days. Recent Labs Result Component Current Result Alkaline Phosphatase 89 (12/29/2023) ALT 16 (12/29/2023) Anion Gap 8 (12/29/2023) AST 23 (12/29/2023) eGFR by CKD-EPI >90 (12/29/2023) documented in this encounter Miscellaneous Notes * Anesthesia Transfer of Care - Papo Kelly MD - 02/12/2024 2:13 PM CDT ANESTHESIA TRANSFER OF CARE NOTE Today's Date: 02/25/2024 Date of : 1970 Patient: Camilo Curry Procedure(s) with comments: EGD w/ agbim - irregular z-line PHG two small gastric polyps small esophageal varices Surgeon(s): Primary: Gaby Mistry MD Preop Diagnosis: Pre-op Diagnois: * Cirrhosis of liver without ascites, unspecified hepatic cirrhosis type (HCC) [K74.60] Pre-op Meds (From admission, onward) None Post-op Diagnosis: * Cirrhosis of liver without ascites, unspecified hepatic cirrhosis type (HCC) [K74.60] . Allergies Allergen Reactions Pcn [Penicillins] Shortness of Breath Duloxetine Urticaria Iv Contrast [Contrast-Iodinated Agents For Ct/Other] Rash Metoclopramide Psychiatric Dysphoric reaction Nexium [Esomeprazole] Urticaria Prochlorperazine Urticaria Poss. hives w/IV dose Sulfa Drugs Urticaria Oxycodone Palpitations Azactam [Aztreonam In Dextrose] Urticaria Aztreonam Urticaria Ciprofloxacin Urticaria Erythromycin Urticaria Iodine Swelling Octreotide Urticaria Nisoldipine Unknown Wound Dressing Adhesive Other Tape - Blisters Vitals: No data found. Lines, Drains, and Airways Type Details Placement Removal Peripheral IV Date: 02/12/24; Time: 1204; Orientation: Right; Location: Antecubital; Gauge: 20 G 02/12/24 1204 by Brianna Lopez RN 02/12/24 1443 by Trice Fletcher RN Intraprocedure I/O Totals None Patient Transfer Location: Endo Recovery Transport Airway: nasal airway Transport Monitoring: heart rate and continuous pulse oximetry Complications: None Handoff Given? Yes Checklist or Protocol - The pereyra handoff elements that must be included in the transfer of care checklist include: 1. Identification of patient. 2. Identification of responsible practitioner (PACU nurse or advanced practitioner). 3. Discussion of pertinent medical history. 4. Discussion of the surgical/procedure course (procedure, reason for surgery, procedure performed). 5. Intraoperative anesthetic management and issue/concerns. 6. Expectations/Plans for the early post-procedure period. 7. Opportunity for questions and acknowledgement of understanding of report from the receiving PACUteam. PAPO KELLY MD documented in this encounter Plan of Treatment Upcoming Encounters Date Type Department Care Team (Late st Contact Info) Description 02/17/2024 11:59 PM CDT Anesthesia Event [facility] [address] [place] [phone] Pushpa Frey DO [address] [facility] [address] [phone] 05/20/2024 12:30 PM RADIOSONDE SPECIALIST Appointment [facility] MRI [address] [place] [phone] Steve Bedolla MD [address] [place] [phone] 06/30/2024 10:30 AM RADIOSONDE SPECIALIST Office Visit [facility] - [address], [place] [phone] Steve Bedolla MD [address] [place] [phone] documented as of this encounter Goals Goal [...] Diagnoses Not on filedocumented in this encounter Administered Medications Inactive Administered Medications - up to 3 most recent administrations Medication Order MAR Action Action Date Dose Rate Site 0.9% NaCl infusion Intravenous, CONTINUOUS PRN, Starting on Thu02/12/24 at 1341, Until Thu02/12/24 at 1413, Anesthesia Intra-op $ New Bag/Syringe 02/12/2024 1:41 PM CDT lidocaine HCl (PF) (Xylocaine MPF) 2 % injection Intravenous, PRN, Starting on Thu02/12/24 at 1355, Until Thu02/12/24 at 1413, Anesthesia Intra-op $ Given 02/12/2024 1:55 PM CDT 50 mg propofol (Diprivan) infusion Intravenous, CONTINUOUS PRN, Starting on Thu02/12/24 at 1355, Until Thu02/12/24 at 1413, Anesthesia Intra-op Rate Change 02/12/2024 1:57 PM CDT 160 mcg/kg/min 96.192 mL/hr $ New Bag/Syringe 02/12/2024 1:55 PM CDT 180 mcg/kg/min 10 8.216 mL/hr propofol (Diprivan) injection Intravenous, PRN, Starting on Thu02/12/24 at 1355, Until Thu02/12/24 at 1413, Anesthesia Intra-op $ Given 02/12/2024 1:55 PM CDT 100 mg documented in this encounter Care Teams Rehabilitation Clerk Relationship Specialty Start Date End Date Braydon Pavon PA [address] [place] [address] PCP - General Physician Otolaryngology Teacher 07/14/23 documented as of this encounter
--- OUTSIDE RECORDS SUMMARY | 2024-04-19 22:42 | XMS_ITS | Encounter Summary ---
Author Organization [facility] Address [facility]3 [facility] [place] [address] Care Team Providers Care Eeg Technologist Name Role Phone Nikolay Lancaster MD Primary Care Provider [phone] Encounter Details Date Type Department Care Team (Latest Contact Info) Description 10/04/2018 7:55 PM CDT - 10/04/2018 11:59 PM T Hospital Encounter [facility] [address] [place] [address] Trice Blankenship, COMPENSATION COORDINATOR-SUPERVISOR CAPACITOR PROCESSING [address] [place] [address] Discharge Disposition: Home or Self Care Social [...] 3 times daily as needed for Anxiety HYDROcodone 10 MG CAPS cmpd capsule Take 1 (one) capsule by mouth 3 times daily as needed for Pain pen needles 09/16 31G X 8 MM 31G X 8 MM Use as directed 100 Each 3 06/07/2018 XIFAXAN 550 MG tablet Take 1 tablet by mouth 2 times daily 90 tablet 3 08/27/2018 acetaminophen-codeine (TYLENOL #3) 300-30 MG tablet 05/05/2018 07/14/2023 alfuzosin CR 24hr (UROXATRAL) 10 MG tablet Take 1 tablet by mouth once daily 30 tablet 10/04/2018 07/14/2023 HUMULIN R U-500 KWIKPEN 500 UNIT/ML SOPN pen Take every 6 hours: 150 units in AM, 150 in afternoon, 150 in evening and 100 units at bedtime 12 Pen 5 09/09/2018 10/08/2018 hydroCHLOROthiazide (HYDRODIURIL) 25 MG tablet Take 1 tablet by mouth once daily 30 tablet 4 05/24/2018 07/14/2023 INSULIN SYRINGE/NEEDLE U-500 31G X 6MM 0.5 ML (BD INSULIN SYRINGE U-500) 31G X 6MM 0.5 ML MISC Use 1 syringe 4 times daily - before meals & nightly 100 Each 3 06/07/2018 12/08/2018 lactulose (CHRONULAC) 10 GM/15ML solution Take 30 mL by mouth 4 times daily 1892 mL 3 08/27/2018 01/11/2019 metFORMIN ER 24hr (GLUCOPHAGE XR) 500 MG tablet Take 2 tablets by mouth daily with dinner 60 tablet 5 05/24/2018 10/25/2018 nitrofurantoin monohyd macro crystals (MACROBID) 100 MG capsule 09/21/2018 07/14/2023 omeprazole (PRILOSEC) 20 MG capsule 05/05/2018 12/29/2023 ondansetron (ZOFRAN) 4 MG tablet 05/05/2018 02/16/2024 ONETOUCH ULTRA TEST STRIPS test strip Use 1 strip 3 times daily 100 strip 5 05/24/2018 10/25/2018 documented as of this encounter Plan of Treatment Upcoming Encounters Date Type Department Care Team (Late st Contact Info) Description 02/17/2024 11:59 PM CDT Anesthesia Event [address] [phone] Pushpa Fery DO [address] [facility] [address] [phone] 05/20/2024 12:30 PM CONTINUITY DIRECTOR Appointment [address] [place] [phone] Steve Bedolla MD [address] [place] [phone] 06/30/2024 10:30 AM CONTINUITY DIRECTOR Office Visit [facility] [address] [facility], [place] [phone] Steev Bedolla MD [address] [place] [phone] documented as of this encounter Procedures Procedure Name Priority Date/Time Associated Diagnosis Comments CULTURE URINE Routine 10/04/2018 2:34 PM CDT Dysuria documented in this encounter Results * CULTURE URINE (10/04/2018 2:34 PM CDT) Culture Urine 10,000-50,000 CFU/mL urogenital jc JUANCARLOS 10/06/2018 10:31 AM CDT [facility]CRO[facility] Urine URINE SPECIMEN OBTAINED BY CLEAN CATCH PROCEDURE / Unknown Collection / Unknown 10/04/2018 2:34 PM CDT 10/04/2018 8:11 PM CDT Trice Blankenship COMPENSATION COORDINATOR-SUPERVISOR CAPACITOR PROCESSING LAB - MICROBIOLO GY ORDERABLES [facility]CRO[facility] [address] [place] [phone] documented in this encounter Visit Diagnoses Diagnosis Dysuria- Primary documented in this encounter Care Teams Eeg Technologist Relationship Specialty Start Date End Date Nikolay Lancaster MD [address] [place] [address] PCP - General 10/04/18 07/13/23 documented as of this encounter
--- OUTSIDE RECORDS SUMMARY | 2024-04-19 22:42 | XMS_ITS | Encounter Summary ---
Author Organization [facility] Address [facility] [place] [address] Care Team Providers Care Clubhouse Manager Name Role Phone Nikolay Lancaster MD Primary Care Provider [phone] Reason for Visit * Reason Onset Date Comments Pre-admit 02/09/2019 Encounter Details Date Type Department Care Team (Late st Contact Info) Description 02/09/2019 Telephone [facility] [address] [place] [address] Lukas Moses Jr., MD [facility] [address] [place] [address] [address] [place] [address] Pre-admit Social History Tobacco Use Types Packs/Day Years [...] encounter Miscellaneous Notes * Telephone Encounter - Lukas Moses Jr., MD - 02/09/2019 6:00 AM CDT Addendum: contacted by transfer center that he left AMA from the ER. [facility] GI remains happy to accepthim for further care should he represent. * Telephone Encounter - Lukas Moses Jr., MD - 02/09/2019 5:54 AM CDT Contacted by Dr. Moreno at [facility] to transfer Mr. Curry. Briefly, he is a 48M with BLAND cirrhosis c/b bleeding EV s/p TIPS 11/2015, hx HE, DM, TRACY, bipolar, chronic back pain who presented for hematemesis. Hemodynamically stable, BP 120/70, HR 90, Hgb 12, lactate 4.2, repeat labs pending. Reportedy heme negative stool with no melena or hematochezia. Had been vomiting for several days and then developedhematemesis. Glucose 430? Stress vs DKA/HHS--possible cause for vomiting. Accepted for transfer to [facility] for further evaluation. Discussed with them that for now would accept to ICU given active hematemesis. If he remains hemodynamically stable and repeat Hgbs stable and lactates are downtrending, can consider downgrading to floor bed. Advised trending CBCs and labs, starting PPI, octreotide gtt, CTX for cirrhotic GI bleeding. documented in this encounter Plan of Treatment Upcoming Encounters Date Type Department Care Team (Late st Contact Info) Description 02/17/2024 11:59 PM CDT Anesthesia Event [facility] [address] [place] [phone] Pushpa Frey, [address] [facility] [address] [phone] 05/20/2024 12:30 PM LPN OR MEDICAL ASSISTANT Appointment [facility] [address] [place] [phone] Steve Bedolla MD [address] [place] [phone] 06/30/2024 10:30 AM LPN OR MEDICAL ASSISTANT Office Visit [facility] - GI [address] [place] [address], [place] [phone] Steve Bedolla MD [address] [place] [phone] documented as of this encounter Visit Diagnoses Not on filedocumented in this encounter Care Teams Clubhouse Manager Relationship Specialty Start Date End Date Nikolay Lancaster MD [address] [place] [address] PCP - General 10/04/18 07/13/23 documented as of this encounter
--- OUTSIDE RECORDS SUMMARY | 2024-04-19 22:42 | XMS_ITS | Encounter Summary ---
Author Organization [facility] [place] Address [address] [facility] [place] [address] Care Team Providers Care Mold Filler Name Role Phone Braydon Pavon Primary Care Provider [phone] Reason for Visit * Auth/Cert (Routine) Specialty Diagnoses / Procedures Referred By Contac t Referred To Contact Diagnoses Cirrhosis of liver without ascites, unspecified hepatic cirrhosis type (HCC) Procedures ME ED EGD FLEX TRANSORAL DX EGD w/ agbim ESOPHAGOGASTRODUODENOSCOPY (EGD) DIAGNOSTIC Referral ID Status Reason Start Date Expiration Date Visits Re quested Visits Authorized [id number] 1 1 Encounter Details Date Type Department Care Team (Late st Contact Info) Description 02/12/2024 4:00 PM CDT - 02/12/2024 4:30 PM CDT Surgery [facility] ENDOSCOPY [address] [place] [phone] Gaby Mistry MD [address] [place] [phone] EGD w/ agbim Surgery Details Date/Time Status Location OR Service Patient Class Case Class Case Type Trauma Case? 02/12/2024 4:00 PM Posted [facility] Endoscopy ENDO 1 Gastroenterology Surgery Day Care Elective > 5 days Panel 1 Procedure LRB Anes Op Region Wound Class Comments EGD w/ agbim N/A MAC Esophagus NA irregular z-line PHG two small gastric polyps small esophageal varices Surgeon Surgeon Role Service Panel Gaby Mistry MD Primary Gastroenterology 1 Special Needs Message Received: Yesterday Agbim, Steve A, MD P [facility] Schedulers - Endoscopy Pool Please set up this patient for EGD with me. Thanks Received Date Received Time Jan 11, 2024 5:33 PM documented in this encounter Social History Tobacco [...] - - Weight 100.2 kg (221 lb) 02/12/2024 12:00 PM CDT Height 172.7 cm (5' 8 ) 02/12/2024 12:00 PM CDT Body Mass Index 33.6 02/12/2024 12:00 PM CDT documented in this encounter Functional Status Functional Status Response [...] No 02/12/2024 documented as of this encounter Discharge Instructions * Discharge Instructions* Trice Fletcher, RN - 02/12/2024 2:16 PM CDT Images from the original note were not included. DISCHARGE INSTRUCTIONS: Call 911 if: You have sudden chest pain or trouble breathing. Seek care immediately if: You feel dizzy or faint. You have trouble swallowing. You have severe throat pain. Your bowel movements are very dark or black. Your abdomen is hard and firm and you have severe pain. You vomit blood. Contact your healthcare provider if: You feel full or bloated and cannot burp or pass gas. You have not had a bowel movement for 3 days after your procedure. You have neck pain. You have a fever or chills. You have nausea or are vomiting. You have a rash or hives. You have questions or concerns about your endoscopy. Relieve a sore throat: Suck on throat lozenges or crushed ice. Gargle with a small amount of warm salt water. Mix 1 teaspoon of salt and 1 cup of warm water to make salt water. Relieve gas and discomfort from bloating: Lie on your right side with a heating pad on your abdomen. Take short walks to help pass gas. Eat small meals until bloating is relieved. Rest after your procedure: Do not drive or make important decisions until the day after your procedure. Return to your normal activity as directed. You can usually return to work the day after your procedure. Follow up with your healthcare provider as directed: Write down your questions so you remember to ask them during your visits. ?? Copyright Year Up 2020 Information is for End User's use only and may not be sold, redistributed or otherwise used for commercial purposes. All illustrations and images included in CareNotes?? are the copyrighted property of [employer]. or [employer] The above information is an educational coordinator only. It is not intended as medical advice for individual conditions or treatments. Talk to your doctor, nurse or pharmacist before following any medical regimen to see if it is safe and effective for you. documented in this encounter Medications at Time [...] 2 times daily 90 tablet 3 08/27/2018 insulin glargine (Lantus SoloStar) pen INJECT 35 UNITS SUBCUTANEOUSLY IN THE MORNING AND 50 UNITS IN THE EVENING 02/02/2023 02/16/2024 ondansetron (ZOFRAN) 4 MG tablet 05/05/2018 02/16/2024 traMADol (Ultram) 50 MG tablet Take 1 (one) tablet by mouth 02/02/2023 02/16/2024 traZODone (Desyrel) 100 MG tablet Take 1 (one) tablet by mouth 2 times daily 02/02/2023 02/16/2024 documented as of this encounter H&P Notes * Gaby Mistry MD - 02/12/2024 12:59 PM CDT PRE-PROCEDURE HISTORY & PHYSICAL NOTE 02/12/2024 12:59 PM Patient: Camilo Curry, date of 1970 Procedure(s) planned: EGD Indication(s): Surveillance of esophageal varices History: Patient is a 53 year old male presenting for EGD surveillance of esophageal varices. Patient Active Problem List Diagnosis Date Noted [...] Prioritized RUQ pain 10/11/2017 Priority: Not Prioritized Past Medical History: Diagnosis Date Anxiety Biliary [...] long-term current use of insulin (HCC) 05/24/2018 Family History Problem Relation Name Age of Onset Cancer - Other Mother Cancer - Other Father Cancer - Other Maternal Grandmother Cancer - Other Maternal Grandfather Cancer - Other Paternal Grandmother Cancer - Other Paternal Grandfather Other - Hepatic/Liver Neg Hx Past Surgical History: Procedure Laterality Date ENDOSCOPY, UPPER IR TIPS PROCEDURE Social History Socioeconomic History Marital status: Spouse name: Not on file Number of children: Not on file Years of education: Not on file Highest education level: Not on file Occupational History Not on file Tobacco Use Smoking status: Former Smokeless tobacco: Never Substance and Sexual Activity Alcohol use: No Drug use: No Sexual activity: Not on file Other Topics Concern Not on file Social History Narrative Disabled. 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 hives w/IV dose Sulfa Drugs Urticaria Oxycodone Palpitations Azactam [Aztreonam In Dextrose] Urticaria Aztreonam Urticaria Ciprofloxacin Urticaria Erythromycin Urticaria Iodine Swelling Octreotide Urticaria Nisoldipine Unknown Wound Dressing Adhesive Other Tape - Blisters No current facility-administered medications on file prior to encounter. Current Outpatient Medications on File Prior to Encounter Medication Sig Dispense Refill ALPRAZolam (XANAX) 0.5 MG tablet Take 1 (one) tablet by mouth 3 times daily as needed for Anxiety blood glucose (TRUE METRIX BLOOD GLUCOSE TEST) test strip Use 1 strip 3 times daily 100 strip 11 famotidine (Pepcid) 20 MG tablet HUMULIN R U-500 KWIKPEN 500 UNIT/ML SOPN pen Take every 6 hours: 150 units in AM, 150 in afternoon,150 in evening and 100 units at bedtime 12 Pen 5 HYDROcodone 10 MG CAPS cmpd capsule Take [...] before meals & nightly 100 Each 3 lactulose (CHRONULAC) 10 GM/15ML solution Take 30 mL by mouth 4 times daily 1892 mL 3 ondansetron (ZOFRAN) 4 MG tablet pen needles 5/16 31G X 8 MM 31G X 8 MM Use as directed 100 Each 3 polyethylene glycol 3350 (Miralax) 17 GM/SCOOP powder Take 17 (seventeen) g by mouth once daily pregabalin (Lyrica) 150 MG capsule 2 times daily traMADol (Ultram) 50 MG tablet Take 1 (one) tablet by mouth (Patient not taking: Reported on 02/12/2024) traZODone (Desyrel) 100 MG tablet Take 1 (one) tablet by mouth 2 times daily (Patient not taking: Reported on 02/12/2024) Trulicity 0.75 MG/0.5ML injection XIFAXAN 550 MG tablet Take 1 tablet by mouth 2 times daily (Patient not taking: Reported on 12/29/2023) 90 tablet 3 No current facility-administered medications for this encounter. ROS No Chest pain, no plapitations No shortness of breath No abdominal pain Physical Exam: BP 119/98 Pulse 84 Temp 97.8 ??F (36.6 ??C) (Oral) Resp 12 Ht 1.727 m (5' 8 ) Wt 100.2 kg(221 lb) SpO2 92% General appearance: alert, cooperative, no distress Heart: regular rhythm, normal S1 and S2, without murmurs, rubs or gallops Lungs: breath sounds normal and symmetric; no rales or wheezes Abdomen: soft without mass, non-tender, with normal bowel sounds Extremities: no clubbing, cyanosis or edema Lab Results Component Value Date/Time HGB 15.8 12/29/2023 01:12 PM HGB 13.2 (Abnormal) 06/25/2018 12:00 AM PLT 87 (Abnormal) 06/25/2018 12:00 AM INR 1.1 12/29/2023 01:12 PM INR 1.1 06/25/2018 12:00 AM CREATININE 0.73 12/29/2023 01:12 PM ASA: 3 Sedation Plan: Monitored Anesthesia Care (MAC) by the anesthesia team. The indications, alternatives, benefits and risks of the endoscopic procedure were reviewed with the patient/family. Significant risks such as pain, bleeding, infection, perforation of the viscus, pancreatitis (in the case of EUS/ERCP), and consequences related to sedation such as respiratory arrest and cardiac arrest were discussed. Consequences from these could result in hospital stay, surgicalintervention, pain and suffering, inability to engaging gainful employment for short or longterm and even leading to permanent disability and/or . Failure to accomplish the intent of the procedure or failure to accomplish certain aspect of the procdure was reviewed. The possible need for serial endoscopic procedure was reviewed. Risk of aspiration and consequent pneumonia, respiratory issues, injury to mouth, teeth gums, and throat were discussed. Patient/family understands the risks and consents to go ahead with the procedure. The patient/family was given opportunity to ask questions. The patient's questions were answered to their satisfaction. Procedure Plan: Based on the above assessment, we will perform the procedures indicated above. When the assessment above was not obtained immediately before the procedure, I have reassessed this patient and there are no changes Gaby Mistry MD Gastroenterology & Hepatology [facility] documented in this encounter Plan of Treatment Upcoming Encounters Date Type Department Care Team (Late st Contact Info) Description 02/17/2024 11:59 PM CDT Anesthesia Event [facility] [address] [place] [address] Pushpa Frey, DO [address] [facility] [address] [phone] 05/20/2024 12:30 PM SUPERVISOR INSPECTION AND TESTING Appointment [facility] MRI [address] [place] [address] Steve Bedolla MD [address] [place] [address] 06/30/2024 10:30 AM SUPERVISOR INSPECTION AND TESTING Office Visit [facility] - GI [address] [facility], [place] [address] Steve Bedolla MD [address] [place] [address] documented as of this encounter [...] Procedure Name Priority Date/Time Associated Diagnosis Comments ME ED EGD FLEX TRANSORAL DX 02/12/2024 1:47 PM CDT Cirrhosis of liver without ascites, unspecified hepatic cirrhosis type (HCC) Special Needs Message Received: Yesterday Steve Bedolla MD [facility] Schedulers - Endoscopy Pool Please set up this patient for EGD with me. Thanks Received Date Received Time Jan 11, 2024 5:33 PM EGD Routine 02/12/2024 1:40 PM CDT GLUCOSE - POINT OF CARE Routine 02/12/2024 1:17 PM CDT GLUCOSE - POINT OF CARE Routine 02/12/2024 11:47 AM CDT documented in this encounter Results * EGD (02/12/2024 1:40 PM CDT) [facility] Signature Report Endoscopy POC Endoscopy Department Report _ [...] Procedure Code(s): ? --- Professional --- ? 70000, Esophagogastroduo denoscopy, flexible, transoral; diagnostic, ? including collection of specimen(s) by brushing or washing, when ? performed (separate procedure) Diagnosis Code(s): ?--- Professional --- ?I85.00, Esophageal varices without bleeding ?K22.89, Other specified disease of esophagus ?K76.6, Portal hypertension ?K31.89, Other diseases of stomach and duodenum ?K31.7, Polyp of stomach and duodenum CPT copyright 2021 [employer]. All rights reserved. The codes documented in this report are preliminary and upon powder worker review may be revised to meet current compliance requirements. Gaby Mistry MD 02/12/2024 2:13:14 PM This report has been signed electronically. Note Initiated On: 02/12/2024 1:40 PM Number of Addenda: 0 ? [facility] ? [address] [place] [address] [facility] 02/12/2024 1:40 PM CDT Gaby Mistry MD GI PROCEDURE ORDERAB LES Performing Organization Address City/[facility]/ZIP Co de Phone Number [facility] * (ABNORMAL) GLUCOSE - POINT OF CARE (02/12/2024 1:17 PM CDT) Glucose WB/POC 277(H) 70 - 115 mg/dL 02/12/2024 1:18 PM CDT [facility] Specimen Type Cap Fingerstick 2023 1:[address] [facility] Blood BLOOD SPECIMEN / Unknown 02/12/2024 1:17 PM CDT 02/12/2024 1:18 PM CDT Steve Bedolla MD LAB - POINT OF CARE ORDERABLES Performing Organization Address City/[facility]/ZIP Co de Phone Number [facility] [address] [place] [address], [facility] [phone] * (ABNORMAL) GLUCOSE - POINT OF CARE (02/12/2024 11:47 AM CDT) Glucose WB/POC 342(H) 70 - 115 mg/dL 02/12/2024 11:49 AM CDT [facility] Specimen Type Venous 02/12/2024 11:[address] [facility] Blood BLOOD SPECIMEN / Unknown 02/12/2024 11:47 AM CDT 02/12/2024 11:49 AM CDT Steve Bedolla MD LAB - POINT OF CARE ORDERABLES [facility] [address] [place] [address], [facility] [phone] documented in this encounter Visit Diagnoses Diagnosis Cirrhosis of liver without ascites, unspecified hepatic cirrhosis type (HCC) documented in this encounter Administered Medications Inactive Administered Medications - up to 3 most recent administrations Medication Order MAR Action Action Date Dose Rate Site insulin regular human 1 unit/mL injection 10 Units, Intravenous, ONCE, 1 dose, On Thu02/12/24 at 1245, Obtain current Blood Glucose if necessary Use prefilled syringe. For non 24 hour pharmacies: Withdraw 5-10mL from insulin bag based on Epic order with dispensing pin and luer lock syringe then admin IVP over 1 minute. $ Given 02/12/2024 12:38 PM CDT 10 Units documented in this encounter Active and Recently Administered Medications Times are shown in CDT. Scheduled Medication Order 02/10/2024 02/11/2024 02/12/2024 insulin regular human 1 unit/mL injection (COMPLETED) 10 Units, Intravenous, ONCE, 1 dose, On Thu02/12/24 at 1245, Obtain current Blood Glucose if necessary Use prefilled syringe. For non 24 hour pharmacies: Withdraw 5-10mL from insulin bag based on Epic order with dispensing pin and luer lock syringe then admin IVP over 1 minute. 1238 ($ Given - Prov ider: Brianna Lopez RN) documented in this encounter Care Teams Mold Filler Relationship Specialty Start Date End Date Braydon Pavon PA [address] [place] [address] PCP - General Physician Automation Test Developer 07/14/23 documented as of this encounter
--- OUTSIDE RECORDS SUMMARY | 2024-04-19 22:42 | XMS_ITS | Encounter Summary ---
Author Organization [facility] Address [facility] [place] [address] Care Team Providers Care Eastern Philosophy Professor Name Role Phone Nikolay Lancaster MD Primary Care Provider [phone] Reason for Visit * Reason Onset Date Comments MEDICATION REFILL 10/08/2018 Encounter Details Date Type Department Care Team (Late Contact Info) Description 10/08/2018 Refill [facility] Endocrinology, Diabetes and Metabolism [address] [place] [address] Edmond Choi MD [address] [address] MEDICATION REFILL Social History Tobacco Use Types [...] encounter Miscellaneous Notes * Telephone Encounter - Maria Isabel Guardado - 10/08/2018 9:32 AM CDT ELSA 1.21.19 NOV was NOS 4.29.19 documented in this encounter Plan of Treatment Upcoming Encounters Date Type Department Care Team (Late Contact Info) Description 02/17/2024 11:59 PM CDT Anesthesia Event [facility] MRI [address] [place] [phone] Pushpa Frey, DO [address] [facility] [address] [place] [phone] 05/20/2024 12:30 PM SUPERVISOR CARBON ELECTRODES Appointment [facility] MRI [address] [place] [phone] Steve Bedolla MD [address] [place] [phone] 06/30/2024 10:30 AM SUPERVISOR CARBON ELECTRODES Office Visit [facility] - GI [address] [facility], [facility] [place] [address] Steve Bedolla MD [address] [place] [phone] documented as of this encounter Visit Diagnoses Not on filedocumented in this encounter Care Teams Eastern Philosophy Professor Relationship Specialty Start Date End Date Nikolay Lancaster MD [address] [place] [address] PCP - General 10/04/18 07/13/23 documented as of this encounter
--- OUTSIDE RECORDS SUMMARY | 2024-04-19 22:42 | XMS_ITS | Encounter Summary ---
Author Organization [facility] Address [facility] [facility] [place] [address] Care Team Providers Care Tanker Truck Driver Name Role Phone Braydon Pavon Primary Care Provider [phone] Encounter Details Date Type Department Care Team (Latest Contact Info) Description 10/27/2023 Travel Social History Tobacco Use Types Packs/Day [...] Description 02/17/2024 11:59 PM CDT Anesthesia Event [facility] [address] [place] [phone] Pushpa Frey DO [address] [facility] [address] [phone] 05/20/2024 12:30 PM MANAGER MARKETING COMMUNICATIONS Appointment [facility] MRI [address] [place] [phone] Steve Bedolla MD [address] [place] [phone] 06/30/2024 10:30 AM MANAGER MARKETING COMMUNICATIONS Office Visit [place] [facility] - [address] [phone] Steve Bedolla MD [address] [place] [address] documented as of this encounter Goals Goal [...] on filedocumented in this encounter Care Teams Tanker Truck Driver Relationship Specialty Start Date End Date Braydon Pavon PA [address] [place] [address] PCP - General Physician Business And Services Instructor 07/14/23 documented as of this encounter
--- OUTSIDE RECORDS SUMMARY | 2024-04-19 22:42 | XMS_ITS | Encounter Summary ---
Author Organization [facility] Address [facility] [place] [address] Care Team Providers Care Commercial Drone Pilot Name Role Phone Nikolay Lancaster MD Primary Care Provider [phone] Reason for Visit * Reason Onset Date Comments MEDICATION REFILL 12/23/2018 Encounter Details Date Type Department Care Team (Late Contact Info) Description 12/23/2018 Refill [facility] [address] [place] [address] Edmond hCoi MD [address] [place] [address] MEDICATION REFILL Social History Tobacco Use Types [...] * Telephone Encounter - Johnny Gonzalez - 12/23/2018 1:51 PM CDT ELSA . NOV not scheduled INS will only pay for the vials and will only pay for 1 vial per month w/o an override. documented in this encounter Plan of Treatment Upcoming Encounters Date Type Department Care Team (Late Contact Info) Description 02/17/2024 11:59 PM CDT Anesthesia Event [facility] MRI [address] [place] [phone] Pushpa Frey, [address] [phone] 05/20/2024 12:30 PM SENIOR ARCHITECT Appointment [facility] [address] [place] [phone] Steve Bedolla MD [address] [place] [phone] 06/30/2024 10:30 AM SENIOR ARCHITECT Office Visit [facility] - [address] [place] [address], [place] [phone] Steve Bedolla MD [address] [place] [phone] documented as of this encounter Visit Diagnoses Not on filedocumented in this encounter Care Teams Commercial Drone Pilot Relationship Specialty Start Date End Date Nikolay Lancaster MD [address] [place] [address] PCP - General 10/04/18 07/13/23 documented as of this encounter
--- OUTSIDE RECORDS SUMMARY | 2024-04-19 22:42 | XMS_ITS | Encounter Summary ---
Author Organization [facility] Address [address] [place] [address] [place] [address] Care Team Providers Care Paper Plate Machine Tender Name Role Phone Braydon Pavon Primary Care Provider [phone] Reason for Visit * Reason Onset Date Comments Follow-up 08/18/2023 Encounter Details Date Type Department Care Team (Late st Contact Info) Description 08/18/2023 Telephone [facility] - [address] [place] [address], [facility] [place] [address] Steve Bedolla MD [address] [place] [id number] Follow-up Social History Tobacco Use Types [...] encounter Miscellaneous Notes * Telephone Encounter - Chica Amin, RN - 11/03/2023 10:21 AM CDT Patient is calling back and would like to speak with nurse or provider. Informed patient that nursehas called and left messages. Patient states he never received any messages. Informed patient I would send message to nurse and provider as they are both in clinic now and have them call back or sendmy chart message.. Patient said that messages are not good enough and hung up. * Telephone Encounter - Ellen Lee RN - 10/22/2023 10:33 AM CDT Patient calls in wanting to discuss his blood sugar and levels. Looks like office had tried contacting him last month and month before but he hadn't returned call. Patient states he wants to discuss his tips because the ultrasound he had in July states it was working as well. He mentioned backflow . He also states he's been working on getting his blood sugars under control and hgb A1c is around8 now. He states he was told that he wouldn't be able to be listed for a liver transplant with out of control blood sugars. He has follow up in January and wondering if he should be seen sooner. Informed patient that this information would be sent to 's nurse and the office would be back in contact with him. He VPU. Thanks. Juan Carlos RN * Telephone Encounter - Yoly Kirk RN - 09/18/2023 9:50 AM CDT LVM again to follow up below * Telephone Encounter - Yoly Kirk RN - 08/18/2023 10:[address] Bedolla- Please call patient. ??Let him know that he needs to f/u with Dr. Mora so that there can be some guidancee regarding his insulin regimen prior to giving contrast since he has a contrast allergy. Thanks LVM to notify patient documented in this encounter Plan of Treatment Upcoming Encounters Date Type Department Care Team (Late st Contact Info) Description 02/17/2024 11:59 PM CDT Anesthesia Event [facility] [address] [place] [address] Pushpa Frey, DO [address] [facility] [address] [place] [phone] 05/20/2024 12:30 PM SOIL AND PLANT SCIENTIST Appointment [facility] MRI [address] [place] [phone] Steve Bedolla MD [address] [place] [address] 06/30/2024 10:30 AM SOIL AND PLANT SCIENTIST Office Visit [facility] - [place] [address] [facility] [place] [address] Steve Bedolla MD [facility] [place] [address] documented as of this encounter [...] on filedocumented in this encounter Care Teams Paper Plate Machine Tender Relationship Specialty Start Date End Date Braydon Pavon PA [address] [place] [address] PCP - General Physician Japanese Interpreter 07/14/23 documented as of this encounter
--- OUTSIDE RECORDS SUMMARY | 2024-04-19 22:42 | XMS_ITS | Encounter Summary ---
Author Organization [facility] Address [address] [facility] [place] [address] Care Team Providers Care Satellite Communications Operator Name Role Phone Nikolay Lancaster MD Primary Care Provider [phone] Encounter Details Date Type Department Care Team (Latest Contact Info) Description 03/04/2023 Travel Social History Tobacco Use Types Packs/Day [...] Description 02/17/2024 11:59 PM CDT Anesthesia Event [facility] [address] [place] [phone] Pushpa Frey, [address] [id number] 05/20/2024 12:30 PM SHELLFISH PROCESSING LABORER Appointment [facility] MRI [address] [place] [phone] Steve Bedolla MD [facility] [place] [phone] 06/30/2024 10:30 AM SHELLFISH PROCESSING LABORER Office Visit [facility] - [address], [facility] [place] [address] Steve Bedolla MD [address] [place] [address] documented as of this encounter Visit Diagnoses Not on filedocumented in this encounter Care Teams Satellite Communications Operator Relationship Specialty Start Date End Date Nikolay Lancaster MD [address] [place] [address] PCP - General 10/04/18 07/13/23 documented as of this encounter
--- OUTSIDE RECORDS SUMMARY | 2024-04-19 22:42 | XMS_ITS | Patient Health Summary ---
Author Organization [facility] Address [address] [place] [address] Care Team Providers Care Grants Officer Name Role Phone Braydon Pavon Primary Care Provider Note from [facility],non-owned Affiliates and Associated Physician Practices is amultiple site organization consisting of ambulatory clinics and hospital sitesin [place], [place], [place] and [place]. This disclosure is being madepursuant to the Care Everywhere program and may not contain all information available regarding this patient. Last updated 18.[facility] Allergies * Aztreonam In Dextrose(Urticaria) -Medium Criticality * Aztreonam(Urticaria) -Medium Criticality * Ciprofloxacin(Urticaria) -Medium Criticality * Duloxetine(Urticaria) -Medium Criticality * Erythromycin(Urticaria) -Medium Criticality * Iodine(Swelling) -Medium Criticality * Contrast-Iodinated Agents For Ct/Other(Rash) -Medium Criticality * Metoclopramide(Psychiatric) -Medium Criticality * Esomeprazole(Urticaria) -Medium Criticality * Nisoldipine(Unknown) * Octreotide(Urticaria) -Medium Criticality * Oxycodone(Palpitations) * Penicillins(Shortness of Breath) -High Criticality * Prochlorperazine(Urticaria) -Medium Criticality * Sulfa Drugs(Urticaria) -Medium Criticality * Wound Dressing Adhesive(Other) Medications * Be aware that medications may not be up to date on this document. Alwaysverify current medications with the patient. * ALPRAZolam (XANAX) 0.5 MG tablet Take 1 (one) tablet by mouth 3 times daily as needed for Anxiety * pen needles /16 31G X 8 MM 31G X 8 MM(Started 06/07/2018) Use as directed 3 refills remaining * XIFAXAN 550 MG tablet(Started 08/27/2018) Take 1 tablet by mouth 2 times daily 3 refills remaining * HYDROcodone 10 MG CAPS cmpd capsule Take 1 (one) capsule by mouth 3 times daily as needed for Pain * INSULIN SYRINGE/NEEDLE U-500 31G X 6MM 0.5 ML (BD INSULIN SYRINGE U-500) 31G X 6MM 0.5 ML MISC(Started 12/08/2018) Use 1 syringe 4 times daily - before meals & nightly 3 refills remaining * blood glucose (TRUE METRIX BLOOD GLUCOSE TEST) test strip(Started 12/08/2018) Use 1 strip 3 times daily 11 refills remaining * HUMULIN R U-500 KWIKPEN 500 UNIT/ML SOPN pen(Started 12/23/2018) Take every 6 hours: 150 units in AM, 150 in afternoon, 150 in evening and 100 units at bedtime 5 refills remaining * lactulose (CHRONULAC) 10 GM/15ML solution(Started 01/11/2019) Take 30 mL by mouth 4 times daily 3 refills remaining * famotidine (Pepcid) 20 MG tablet(Started 05/20/2023) * pregabalin (Lyrica) 150 MG capsule 2 times daily * Trulicity 0.75 MG/0.5ML injection(Started 07/03/2023) * polyethylene glycol 3350 (Miralax) 17 GM/SCOOP powder Take 17 (seventeen) g by mouth once daily * metFORMIN (Glucophage) 500 MG tablet Take 1 (one) tablet by mouth 2 times daily with morning and evening meal * ondansetron, disintegrating, (Zofran ODT) 4 MG tablet Take 1 (one) tablet by mouth every 6 hours as needed for Nausea/Vomiting Allow tablet to dissolve on the tongue Active Problems Problem Noted Date Diagnosed Date Biliary colic 07/21/2018 Gallstones 07/21/2018 Hypertension 07/21/2018 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-sided sc iatica 07/19/2018 Sacroiliac joint dysfunction of both sides 07/19 S/P TIPS (transjugular intrahepatic portosystemi c shunt) 06/08/2018 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 06/02/2018 Secondary esophageal varices 06/02/2018 Type 2 diabetes mellitus wit h complication, with long-term current use of insulin 05/24/2018 RUQ pain 10/11/2017 Resolved Problems Problem Noted Date Diagnosed Date Resolved Date Hepatic encephalopathy 07/21/201811/16 Nausea vomiting and diarrhea 02/02/2018 12/14/2018 Social History Tobacco Use Types Packs/Day Years [...] Mass Index 33.6 02/16/2024 1:51 PM CDT Procedures * AR ED EGD FLEX TRANSORAL DX(Performed 02/12/2024) Performed for Cirrhosis of liver without ascites, unspecified hepatic cirrhosis type (HCC) * EGD(Performed 02/12/2024) * GLUCOSE - POINT OF CARE(Performed 02/12/2024) * GLUCOSE - POINT OF CARE(Performed 02/12/2024) * HEPATITIS B SURFACE ANTIBODY(Performed 12/29/2023) Performed for Cirrhosis of liver without ascites, unspecified hepatic cirrhosis type (HCC), Encounter for screening for other viral diseases * HEPATITIS A ANTIBODY(Performed 12/29/2023) Performed for Cirrhosis of liver without ascites, unspecified hepatic cirrhosis type (HCC), Encounter for screening for other viral diseases * ALPHA FETOPROTEIN BLOOD TUMOR MARKER(Performed 12/29/2023) Performed for Cirrhosis of liver without ascites, unspecified hepatic cirrhosis type (HCC) * BILIRUBIN DIRECT(Performed 12/29/2023) Performed for Cirrhosis of liver without ascites, unspecified hepatic cirrhosis type (HCC) * PT-INR [facility](Performed 12/29/2023) Performed for Cirrhosis of liver without ascites, unspecified hepatic cirrhosis type (HCC) * COMPREHENSIVE METABOLIC PANEL(Performed 12/29/2023) Performed for Cirrhosis of liver without ascites, unspecified hepatic cirrhosis type (HCC) * CBC W AUTO DIFFERENTIAL(Performed 12/29/2023) Performed for Cirrhosis of liver without ascites, unspecified hepatic cirrhosis type (HCC) * US TIPS W ABDOMEN LIMITED(Performed 07/24/2023) Performed for Hepatic cirrhosis, unspecified hepatic cirrhosis type, unspecified whether ascites present (HCC), S/P TIPS (transjugular intrahepatic portosystemic shunt), Fatty liver * TUXDM-3-[id number] BLOOD(Performed 07/14/2023) Performed for Cirrhosis of liver without ascites, unspecified hepatic cirrhosis type (HCC) * IRON + TRANSFERRIN PANEL(Performed 07/14/2023) Performed for Cirrhosis of liver without ascites, unspecified hepatic cirrhosis type (HCC) * FERRITIN(Performed 07/14/2023) Performed for Cirrhosis of liver without ascites, unspecified hepatic cirrhosis type (HCC) * NILE BLOOD SCREEN W/REFLEX TITER(Performed 07/14/2023) Performed for Cirrhosis of liver without ascites, unspecified hepatic cirrhosis type (HCC) * ALPHA FETOPROTEIN BLOOD TUMOR MARKER(Performed 07/14/2023) Performed for Cirrhosis of liver without ascites, unspecified hepatic cirrhosis type (HCC) * BILIRUBIN DIRECT(Performed 07/14/2023) Performed for Cirrhosis of liver without ascites, unspecified hepatic cirrhosis type (HCC) * PT-INR [facility](Performed 07/14/2023) Performed for Cirrhosis of liver without ascites, unspecified hepatic cirrhosis type (HCC) * COMPREHENSIVE METABOLIC PANEL(Performed 07/14/2023) Performed for Cirrhosis of liver without ascites, unspecified hepatic cirrhosis type (HCC) * CBC W AUTO DIFFERENTIAL(Performed 07/14/2023) Performed for Cirrhosis of liver without ascites, unspecified hepatic cirrhosis type (HCC) * US TIPS W ABDOMEN LIMITED(Performed 03/04/2023) Performed for 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) * CULTURE URINE(Performed 10/04/2018) Performed for Dysuria * URINALYSIS AUTO - POINT OF CARE (AMB) [facility](Performed 10/04/2018) Performed for Dysuria * LAB RESULTS ORDER(Performed 06/28/2018) * LAB RESULTS ORDER(Performed 06/25/2018) * LIPID PROFILE (EXTERAL RESULT ENTRY)(Performed 06/25/2018) * COMP MET PANEL (EXTERNAL RESULT ENTRY)(Performed 06/25/2018) * PT INR (EXTERNAL RESULT ENTRY)(Performed 06/25/2018) * CBC W DIFF (EXTERNAL RESULT ENTRY)(Performed 06/25/2018) * HEMOGLOBIN A1C - POINT OF CARE (AMB) [facility](Performed 05/24/2018) Performed for Type 2 diabetes mellitus with complication, with long-term current use of insulin (HCC) * HEMOGLOBIN A1C - POINT OF CARE (AMB) [facility](Performed 05/24/2018) Performed for Type 2 diabetes mellitus with complication, with long-term current use of insulin (HCC) Results * EGD (02/12/2024 1:40 PM CDT) [...] Procedure Code(s): ? --- Professional --- ? 35132, Esophagogastroduo denoscopy, flexible, transoral; diagnostic, ? including collection of specimen(s) by brushing or washing, when ? performed (separate procedure) Diagnosis Code(s): ?--- Professional --- ?I85.00, Esophageal varices without bleeding ?K22.89, Other specified disease of esophagus ?K76.6, Portal hypertension ?K31.89, Other diseases of stomach and duodenum ?K31.7, Polyp of stomach and duodenum CPT copyright 2021 [employer]. All rights reserved. The codes documented in this report are preliminary and upon clinical research director review may be revised to meet current compliance requirements. Gaby Mistry MD 02/12/2024 2:13:14 PM This report has been signed electronically. Note Initiated On: 02/12/2024 1:40 PM Number of Addenda: 0 ? [facility] ? [address] 02/12/2024 1:40 PM CDT Gaby Mistry MD GI PROCEDURE ORDERAB LES [facility] * (ABNORMAL) GLUCOSE - POINT OF CARE (02/12/2024 1:17 PM CDT) Only the most recent of2 resultswithin the time period is included. Glucose WB/POC 277(H) 70 - 115 mg/dL 02/12/2024 1:18 PM CDT [facility] Specimen Type Cap Fingerstick 2023 1:18 PM CDT [facility] Blood BLOOD SPECIMEN / Unknown 02/12/2024 1:17 PM CDT 02/12/2024 1:18 PM CDT Steve Bedolla MD LAB - POINT OF CARE ORDERABLES Performing Organization Address City/[facility] Co de Phone Number [address] [address], [facility] [phone] * PT-INR [facility] (12/29/2023 1:12 PM CDT) Only the most recent of2 resultswithin the time period is included. Pathologist [facility] PT 13.9 12.1 - 14.8 Seconds 12/29/2023 2:29 PM CDT [facility] INR 1.1 See Comment 12/29/2023 2:29 PM CDT [facility] Comment:The suggested therap eutic range for standard coumadin (warfarin) therapy is an INR of 2.0-3.0. For high-risk patients (Mechanical Mitral Valve Prosthesis, etc.), the suggested prophylactic therapeutic range is an INR of 2.5-3.5. Blood BLOOD SPECIMEN / Unknown Lab Venipuncture / Unknown 12/29/2023 1:12 PM CDT 12/29/2023 1:26 PM CDT Steve Bedolla MD LAB - COAGULATION OR DERABLES Performing Organization Address City/[facility] Co de Phone Number [address] [address], [facility] [phone] * ALPHA FETOPROTEIN BLOOD TUMOR MARKER (12/29/2023 1:12 PM CDT) Only the most recent of2 resultswithin the time period is included. Pathologist [facility] Alpha-Fetoprote in Tumor Marker 2.2 <=8.3 ng/mL 12/29/2023 2:22 PM CDT [facility] Comment: AFP values will vary depending on testing procedure used. Results are not comparable across different methods. AFP values obtained by [facility] using an [employer] Alinity Immunoassay. Blood BLOOD SPECIMEN / Unknown Lab Venipuncture / Unknown 12/29/2023 1:12 PM CDT 12/29/2023 1:36 PM CDT Steve Bedolla MD LAB - CHEMISTRY LIONEL HWITT [facility] Organization Address City/State/ZIP Co de Phone Number [facility] [address] [place] [address], [facility] [phone] * (ABNORMAL) CBC WITH DIFFERENTIAL (12/29/2023 1:12 PM CDT) Only the most recent of2 resultswithin the time period is included. WBC 4.2 4.0 - 10.7 x10E9/L 12/29/2023 1:52 PM [facility] RBC Count 5.58 4.30 - 5.80 x10E12/L 12/29/2023 1:52 PM [facility] Hemoglobin 15.8 13.3 - 17.5 g/dL 12/29/2023 1:52 PM [facility] Hematocrit 44.7 38.7 - 51.1 % 12/29/2023 1:52 PM [facility] MCV 80.1 80.0 - 98.0 fL 12/29/2023 1:52 PM [facility] MCH 28.3 26.7 - 33.6 pg 12/29/2023 1:52 PM [facility] MCHC 35.3 31.7 - 36.3 g/dL 12/29/2023 1:52 PM [facility] RDW-CV 18.2(H) 11.3 - 14.8 % 12/29/2023 1:52 PM [facility] Platelet Count 84(L) 150 - 420 x10E9/L 12/29/2023 1:52 PM [facility] MPV 10.0 7.8 - 11.4 fL 12/29/2023 1:52 PM [facility] Neutrophil % 68.4 41.0 - 74.0 % 12/29/2023 1:52 PM [facility] Lymphocyte % 17.5 17.0 - 47.0 % 12/29/2023 1:52 PM CDT [facility] Monocyte % 9.2 3.0 - 11.0 % 12/29/2023 1:52 PM T [facility] Eosinophil % 3.5 0.0 - 7.0 % 12/29/2023 1:52 PM T [facility] Basophil % 1.2 0.0 - 1.6 % 12/29/2023 1:52 PM T [facility] Immature Granulocytes % 0.2 0.0 - 1.0 % 12/29/2023 1:52 PM [facility] Neutrophil Absolute 2.89 1.60 - 7.50 x10E9/L 12/29/2023 1:52 PM [facility] Lymphocyte Absolute 0.74(L) 1.00 - 4.40 x10E9/L 12/29/2023 1:52 PM [facility] Monocyte Absolute 0.39 0.15 - 1.00 x10E9/L 12/29/2023 1:52 PM [facility] Eosinophil Absolute 0.15 0.00 - 0.60 x10E9/L 12/29/2023 1:52 PM [facility] Basophil Absolute 0.05 0.00 - 0.13 x10E9/L 12/29/2023 1:52 PM [facility] Blood BLOOD SPECIMEN / Unknown Lab Venipuncture / Unknown 12/29/2023 1:12 PM CDT 12/29/2023 1:36 PM CDT Steve Bedolla MD LAB - HEMATOLOGY ORD ERABLES [facility] [address] [place] [address], [facility] [phone] * (ABNORMAL) COMPREHENSIVE METABOLIC PANEL (12/29/2023 1:12 PM CDT) Only the most recent of2 resultswithin the time period is included. BUN 13 7 - 26 mg/dL 12/29/2023 2:07 PM T [facility] Creatinine 0.73 0.71 - 1.16 mg/dL 12/29/2023 2:07 PM [facility] Sodium 138 136 - 145 mmol/L 12/29/2023 2:07 PM [facility] Potassium 4.8(H) 3.5 - 4.5 mmol/L 12/29/2023 2:07 PM [facility] Chloride 105 98 - 107 mmol/L 12/29/2023 2:07 PM [facility] CO2 25 22 - 29 mmol/L 12/29/2023 2:07 PM [facility] Glucose 362(H) 70 - 115 mg/dL 12/29/2023 2:07 PM [facility] Calcium 9.8 8.4 - 10.2 mg/dL 12/29/2023 2:07 PM [facility] Protein Total 7.0 6.0 - 8.3 g/dL 12/29/2023 2:07 PM [facility] Albumin 3.7 3.4 - 5.0 g/dL 12/29/2023 2:07 PM [facility] Bilirubin Total 3.2(H) 0.2 - 1.2 mg/dL 12/29/2023 2:07 PM [facility] Alkaline Phosphatase 89 40 - 150 U/L 12/29/2023 2:07 PM [facility] ALT 16 5 - 55 U/L 12/29/2023 2:07 PM [facility] AST 23 5 - 34 U/L 12/29/2023 2:07 PM [facility] Anion Gap 8 6 - 16 12/29/2023 2:07 PM [facility] BUN/Creatinine Ratio 18 7 - 23 12/29/2023 2:07 PM [facility] Osmolality Calculated 301(H) 275 - 295 mOsm/kg 12/29/2023 2:07 PM [facility] Albumin/Globulin Ratio 1.1 1.1 - 2.3 12/29/2023 2:07 PM [facility] eGFR by CKD-EPI >90 >=90 mL/min/1.7 3 m2 12/29/2023 2:07 PM [facility] Blood BLOOD SPECIMEN / Unknown Lab Venipuncture / Unknown 12/29/2023 1:12 PM CDT 12/29/2023 1:37 PM CDT Steve Bedolla MD LAB - CHEMISTRY LIONEL WHITT Performing Organization Address [facility] Co de Phone Number [facility] [address] [place] [address], [facility] [phone] * HEPATITIS B SURFACE ANTIBODY (12/29/2023 1:12 PM CDT) Pathologist [facility] Hepatitis B Virus Surface Antibody Non-react chetna Non-react chetna 12/29/2023 2:13 PM CDT [facility] Comment: < 8 mIU/mL Hepatitis B surface Antibody (HBsAb). Nonreactive for HBsAb - individual is considered not immune to Hepatitis B Virus infection. Hepatitis B Surface Antibody Quantitative 0.3 <8.0 mIU/mL 12/29/2023 2:13 PM CDT [facility] Comment: Hepatitis B Surface Antibody Numeric Result Interpretation: ? Nonreactive: ?<8.0 mIU/mL ? Indeterminate: ??8.0 - 12.0 mIU/mL ? Reactive: ?>12.0 mIU/mL ? Blood BLOOD SPECIMEN / Unknown Lab Venipuncture / Unknown 12/29/2023 1:12 PM CDT 12/29/2023 1:26 PM CDT Steve Bedolla MD LAB - CHEMISTRY LIONEL WHITT Performing Organization Address City/[facility]/ZIP Co de Phone Number [facility] [address] [place] [address], [facility] [phone] * BILIRUBIN DIRECT (12/29/2023 1:12 PM CDT) Only the most recent of2 resultswithin the time period is included. Bilirubin Conjugated 0.5 0.1 - 0.5 mg/dL 12/29/2023 2:07 PM CDT [facility] Blood BLOOD SPECIMEN / Unknown Lab Venipuncture / Unknown 12/29/2023 1:12 PM CDT 12/29/2023 1:37 PM CDT Steve Bedolla MD LAB - CHEMISTRY LIONEL WHITT [facility] [address] [address], [facility] [phone] * HEPATITIS A ANTIBODY (12/29/2023 1:12 PM CDT) Hepatitis A Virus Antibody Total Negative Negative 12/31/2023 8:56 AM CDT [facility] ([facility]) Comment: Performed By: [facility] [address] [place] [address] Digital Art Director: Benny Desai MD, PhD CLIA Number: [id number] Blood BLOOD SPECIMEN / Unknown Lab Venipuncture / Unknown 12/29/2023 1:12 PM CDT 12/29/2023 1:26 PM CDT Steve Bedolla MD LAB - CHEMISTRY LIONEL WHITT Performing Organization Address City/[facility]/ZIP Co de Phone Number [facility] ([facility]) [address] [place] [address] * US TIPS W ABDOMEN LIMITED (07/24/2023 10:09 AM CDT) Only the most recent of2 resultswithin the time period is included. Anatomical Region Laterality Modality Abdomen Ultrasound 07/24/2023 [...] 10:40 AM Ordering Provider Unlisted ORDERAB LES * NILE BLOOD SCREEN W/REFLEX TITER (07/14/2023 4:58 PM CDT) NILE IgG None Detected None Detected 07/16/2023 10:11 PM CDT [facility] ([facility]) Comment: If suspicion of connective tissue disease is strong and NILE EIA is negative, consider testing for NILE by IFA ([id number]). INTERPRETIVE INFORMATION: Anti-Nuclear Antibodies (NILE), IgG by RAMOS Antinuclear Antibodies (NILE), IgG by RAMOS: NILE specimens are screened using enzyme-linked immunosorbent assay (RAMOS) methodology. All RAMOS results reported as Detected are further tested by indirect fluorescent assay (IFA) using HEp-2 substrate with an IgG-specific conjugate. The NILE RAMOS screen is designed to detect antibodies against dsDNA, histones, SS-A (Ro), SS-B (La), Mclean, Mclean/MEDICAL BILLER/CODER, Scl-70, Evelina-1, centromeric proteins, other antigens extracted from the HEp-2 cell nucleus. NILE RAMOS assays have been reported to have lower sensitivities than NILE IFA for systemic autoimmune rheumatic diseases (SARD). Negative results do not necessarily rule out SARD. Performed By: [place] [address] Digital Art Director: Benny Desai MD, PhD CLIA Number: [id number] Blood BLOOD SPECIMEN / Unknown Lab Venipuncture / Unknown 07/14/2023 4:58 PM CDT 07/14/2023 5:15 PM CDT tSeve Bedolla MD LAB - CHEMISTRY LIONEL WHITT Performing Organization Address City/[facility]/ZIP Co de Phone Number [facility] ([facility]) [address] [place] [address] * [id number] BLOOD (07/14/2023 4:58 PM CDT) Pathologist [facility] Bcfrf-4-Yujskv ypsin 182 90 - 200 mg/dL 07/14/2023 5:40 PM CDT [facility] Blood BLOOD SPECIMEN / Unknown Lab Venipuncture / Unknown 07/14/2023 4:58 PM CDT 07/14/2023 5:15 PM CDT Steve Bedolla MD LAB - CHEMISTRY LIONEL WHITT Performing Organization Address City/[facility]/ZIP Co de Phone Number [address] [address], [facility] [phone] * IRON + TRANSFERRIN PANEL (07/14/2023 4:58 PM CDT) Iron 118 50 - 175 ug/dL 07/14/2023 5:39 PM CDT [facility] Transferrin 309 174 - 382 mg/dL 07/14/2023 5:39 PM CDT [facility] Transferrin Saturation % 31 16 - 50 % 07/14/2023 5:39 PM CDT [facility] TIBC Calculated 386 240 - 450 ug/dL 07/14/2023 5:39 PM CDT [facility] Blood BLOOD SPECIMEN / Unknown Lab Venipuncture / Unknown 07/14/2023 4:58 PM CDT 07/14/2023 5:15 PM CDT Steve Bedolla MD LAB - CHEMISTRY LIONEL WHITT Performing Organization Address City/[facility]/ZIP Co de Phone Number [address] [address], [place] [phone] * FERRITIN (07/14/2023 4:58 PM CDT) Ferritin 71 22 - 275 ng/mL 07/14/2023 5:58 PM CDT [facility] Blood BLOOD SPECIMEN / Unknown Lab Venipuncture / Unknown 07/14/2023 4:58 PM CDT 07/14/2023 5:15 PM CDT Steve Bedolla MD LAB - CHEMISTRY LIONEL WHITT Performing Organization Address [facility]/ZIP Co de Phone Number [address] [address], [place] [phone] * CULTURE URINE (10/04/2018 2:34 PM CDT) Culture Urine 10,000-50,000 CFU/mL urogenital jc JUANCARLOS 10/06/2018 10:[address] [facility] Urine URINE SPECIMEN OBTAINED BY CLEAN CATCH PROCEDURE / Unknown Collection / Unknown 10/04/2018 2:34 PM CDT 10/04/2018 8:11 PM CDT Trice HUERTA LAB - MICROBIOLO GY ORDERABLES Performing Organization Address City/[facility]/ZIP Co de Phone Number [facility] [address] [place] [address], [facility] [phone] * URINALYSIS AUTO - POINT OF CARE (AMB) [facility] (10/04/2018 1:23 PM CDT) Glucose UA 3 Bilirubin UA POCT neg Ketones UA POCT trace Specific Milroy UA 1.020 Blood Urine POCT neg pH UA 6.0 Protein UA neg Urobilinogen UA 1 Nitrite UA neg WBC UA neg Urine URINE / Unknown 10/04/2018 1 :23 PM CDT Trice Blankenship [employer] LAB - POINT OF C ARE ORDERABLES * LAB RESULTS ORDER (06/28/2018 9:29 AM VOCATIONAL COORDINATOR) Only the most recent of2 resultswithin the time period is included. Narrative 06/28/2018 9:29 AM VOCATIONAL COORDINATOR Ordered by an unspecified provider. Scanned Document LAB - THERAPEUTIC DR GAITAN MONITORING ORDERABLES * (ABNORMAL) CBC W DIFF (EXTERNAL RESULT ENTRY) (06/25/2018) WBC (EXTERNAL RESULT) 5.5 4.8 - 10.8 10^3/ul Hemoglobin (EXTERNAL RESULT) 13.2(A) 14 - 18 g/dl Hematocrit (EXTERNAL RESULT) 39.5 37 - 46 % Platelets (EXTERNAL RESULT) 87(A) 150 - 420 10^3/ul Neutrophil Absolute (EXTERNAL RESULT) 4.32 1.7 - 7.2 10^3/ul Blood BLOOD SPECIMEN / Unknown 06/25/2018 Historical Provider LAB - HEMATOLOGY ORDERABLES * (ABNORMAL) PT INR (EXTERNAL RESULT ENTRY) (06/25/2018) PT (EXTERNAL) 11.7(A) 9.64 - 11 sec INR (EXTERNAL RESULT) 1.1 Blood BLOOD SPECIMEN / Unknown 06/25/2018 Historical Provider LAB - CHEMISTRY O RDERABLES * (ABNORMAL) COMP MET PANEL (EXTERNAL RESULT ENTRY) (06/25/2018) Glucose (EXTERNAL) 250(A) 70 - 99 mg/dL Sodium (EXTERNAL RESULT) 140 136 - 145 mmol/L Potassium (EXTERNAL RESULT) 4.2 3.5 - 5.1 mmol/L Chloride (EXTERNAL RESULT) 101 98 - 108 mmol/L CO2 (EXTERNAL) 31 21 - 32 mmol/L Calcium (EXTERNAL RESULT) 9.4 8.5 - 10.1 mg/dL Anion Gap (EXTERNAL RESULT) 8 7 - 16 mmol/L BUN (EXTERNAL RESULT) 18 7 - 18 mg/dL Creatinine (EXTERNAL RESULT) 0.93 0.7 - 1.3 mg/dl Alkaline Phosphatase (EXTERNAL RESULT) 76 46 - 116 U/L ALT (EXTERNAL RESULT) 77 12 - 78 U/L AST (EXTERNAL RESULT) 58(A) 15 - 37 U/L Protein Total (EXTERNAL RESULT) 7.4 6.4 - 8.2 gm/dL Albumin (EXTERNAL RESULT) 3.6 3.4 - 5 gm/dL Bilirubin Total (EXTERNAL RESULT) 1.27(A) 0 - 1 mg/dL eGFR MDRD (EXTERNAL RESULT) mL/min/1.7 3m2 eGFR (EXTERNAL) mL/min/1.7 3m2 Blood BLOOD SPECIMEN / Unknown 06/25/2018 Historical Provider LAB - CHEMISTRY O RDERABLES * LIPID PROFILE (EXTERAL RESULT ENTRY) (06/25/2018) Cholesterol (EXTERNAL RESULT) 124 0 - 200 mg/dL Triglycerides (EXTERNAL RESULT) 114 0 - 150 mg/dL HDL (EXTERNAL RESULT) 35 35 - 96 mg/dL LDL (EXTERNAL RESULT) 66 0 - 130 mg/dL VLDL (EXTERNAL RESULT) mg/dL Chol HDL Ratio (External Result) Blood BLOOD SPECIMEN / Unknown 06/25/2018 Historical Provider LAB - CHEMISTRY O RDERABLES * HEMOGLOBIN A1C - POINT OF CARE (AMB) [facility] (05/24/2018 8:30 AM VOCATIONAL COORDINATOR) Only the most recent of2 resultswithin the time period is included. Hemoglobin A1c POCT 8.2 BLOOD SPECIMEN / Unknown 05/24/2018 8:30 AM VOCATIONAL COORDINATOR Edmond Choi MD LAB - POINT OF CARE ORDERABLES Care Teams Grants Officer Relationship Specialty Start Date End Date Braydon Pavon PA [address] [place] [address] PCP - General Physician Survey Technician 07/14/23
--- OUTSIDE RECORDS SUMMARY | 2024-04-19 22:42 | XMS_ITS | Encounter Summary ---
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) Social History Tobacco Use Types Packs/Day [...] Description 02/17/2024 11:59 PM CDT Anesthesia Event [facility] MRI [address] [place] [id number] Pushpa Frey DO [address] [facility] [address] [id number] 05/20/2024 12:30 PM TELEVISION NEWSCAST DIRECTOR Appointment [facility] MRI [address] [place] [id number] Steve Bedolla MD [facility] [place] [address] 06/30/2024 10:30 AM TELEVISION NEWSCAST DIRECTOR Office Visit [facility] - GI [address] [place] [address] Steve Bedolla MD [facility] [place] [address] Scheduled Orders Name Type Priority Associated Diagnoses Orde r Schedule CBC WITH DIFFERENTIAL Lab Routine 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) Ordered: 09/09/2018 COMPREHENSIVE METABOLIC PANEL Lab Routine 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
--- OUTSIDE RECORDS SUMMARY | 2024-04-19 22:42 | XMS_ITS | Encounter Summary ---
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 Name Role Phone Braydon Pavon Primary Care Provider Reason for Referral * (Routine) - Open Specialty Diagnoses / Procedures Referred By Contac t Referred To Contact Diagnoses Cirrhosis of liver without ascites, unspecified hepatic cirrhosis type (HCC) Procedures [id number] BLOOD Steve Bedolla MD [facility] [place] [address] Referral ID Status Reason Start Date Expiration Date Visits Re quested Visits Authorized [id number] Open 07/14/2023 07/13/2024 1 1 Reason for Visit * Reason Comments Cirrhosis Le * Evaluate & Treat (Routine) - Closed Specialty Diagnoses / Procedures Referred By Contact Referred To Contact Hepatology / Gastroenterology Diagnoses Nonalcoholic steatohepatitis (LE) 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) Riddhi Bello [address] [place] [address] [facility] [address] [facility], [place] [address] Referral ID Status Reason Start Date Expiration Date V isits Requested Visits Authorized [id number] Closed Continuity of Care 06/20/2023 06/19/2024 1 1 Encounter Details Date Type Department Care Team (Latest Contact Info) Description 07/14/2023 2:30 PM CDT Office Visit [facility] - GI [address] [facility], [place] [phone] Steve Bedolla MD [address] [place] [address] Cirrhosis of liver without ascites, unspecified hepatic cirrhosis type (HCC) (Primary Dx); Portal hypertension (HCC); S/P TIPS (transjugular intrahepatic portosystemic shunt); Secondary esophageal varices without bleeding (HCC); Portosystemic encephalopathy (HCC); Type 2 diabetes mellitus with complication, with long-term current use of insulin (HCC); Encounter for screening for other viral diseases; Liver lesion Social History Tobacco Use Types Packs/Day Years [...] Sign Reading Time Taken Comments Blood Pressure 111/73 07/14/2023 2:59 PM CDT Pulse 108 07/14/2023 2:59 PM CDT Temperature 37 ??C (98.6 ??F) 07/14/2023 2:59 PM CDT Respiratory Rate - - Oxygen Saturation 96% 07/14/2023 2:59 PM CDT Inhaled Oxygen Concentration - - Weight 95.3 kg (210 lb) 07/14/2023 2:59 PM CDT Height 170.2 cm (5' 7 ) 07/14/2023 2:59 PM CDT Body Mass Index 32.89 07/14/2023 2:59 PM CDT documented in this encounter Patient Instructions * Patient Instructions* Steve Bedolla MD - 07/14/2023 4:18 PM CDT Thank you for entrusting your healthcare to the physicians and other specialists at the [facility] today. Following your visit, you may receive a survey via email or U.S. Mail. We encourage you to respond to this confidential survey about your care. Your feedback helps us to provide quality service at every visit. Thank you for your help in making our practice meet higher expectations. Contact information: To reach the clinic please call (8 am to noon, 1 to 4:30 pm weekdays). Press 1 to make schedule or cancel an appointment Press 2 for pharmacy refills Press 3 to speak with a nurse regarding a change in your condition. Many times your nurse may be busy seeing patients in clinic. In order to meet your needs timely we have implemented a nurse triage line to take your calls. We are closed from 12- for lunch After hours please call (hospital main number), ask the nylon machine operator to call the gastroenterology fellow or transplant fellow ecdis n navigation operator. Emergency: call 911 or go to your closest emergency room. We encourage you to use [employer] to send and receive messages and review your test results. Let us know if you need information on signing up for [employer]. More information about us and our services can be found on our websites at [email or web address] and [email or web address] 07/14/2023 The following information and instructions are from your visit today: Please obtain vaccination to Hepatitis A and B. Hepatitis A is a series of 2 shots given 6 months apart. Hepatitis B is a series of 3 shots given over a period of 6 months. There is a combined Hepatitis A and Hepatitis B shot that is a series of 3 shots given over a period of 6 months. These can beobtained in our office, at your local pharmacy, or at your PCP's office. Talk to your signal intelligence/electronic warfare about getting on a more potent medications for Diabetes (Ozempic or Monjauro) Consider a Mediterranean diet. Ask to see a lunchroom supervisor locally Titrate lactulose to achieve 2-3 soft bowel movements daily. You make have to take miralax in addition. I sent a message to see if we can get you rifaximin Ultrasound as scheduled Will send you a message regarding contrasted imaging Limit Tylenol (acetaminophen) to 2 grams (2000 mg) daily. An extra strength Tylenol is 500 mg and aregular strength Tylenol is 325 mg. I recommend that you avoid non-steroidal anti-inflammatory drugs (NSAIDs). This includes Ibuprofen, Advil, Aleve, etc given an increased risk of bleeding and renalimpairment with these medications. Limit salt intake to 2 grams/day. Recommend reviewing sodium content and serving size on food packaging labels. Avoid fast food dining. Avoid raw shellfish and do not get into sea water or brackish water with open wounds Return to clinic in 6 months with labs the same day The following are my general recommendations for people with liver problems: 1. Stay active. Walking on a daily basis is a good start, but it is better to do a combination of aerobic exercise (the kind that gets you sweaty and out of breath) for at least one half hour per dayalternating with strength training (weights, yoga). Many people find that it helps to have a application trainer to provide guidance. 2. Eat healthy foods. Good advice on nutrition can be found on the website for the [place] Healthy Eating Pyramid. Either search for that on the internet or go to: [email or web address]-eat/pyramid/ 3. Avoid fast foods and sugar sweetened beverages (examples: Pepsi, Coke, Mtn Dew, Linda Tea, Sobe drinks, bottled lemonaid, bottled juice, KoolAid). 4. Avoid trans-fats. On the food label, these are called partially hydrogenated vegetable oil. Note that packages can say Zero trans-fats and the food label can say Trans-fat: 0 grams yet the food is allowed to contain up to a half gram of trans-fat per serving. To minimize cardiovascular risks (the chance of having a stroke or heart attack), the current recommendation is to eat no more that 2 grams of trans-fats daily. 5. Tylenol (acetaminophen) is okay to take for pain, but you should limit your dose to no more [id number] mg daily. This means that you should take no more than 4 Extra Strength or 6 regular strength tablets per day. Remember that acetaminophen is in other medications (eg, Percocet, Darvocet, Vicodin) and the amount that you get from these medications needs to be included in the daily total. 6. Statin drugs for treating an elevated cholesterol level are generally safe for people with fatty liver disease, despite what TV ads say about using one of these medications when you have liver disease. If one is started, it is worthwhile to check liver enzymes a few times over the first 6 months to be certain. As with any medication, if you have any new symptoms after starting a medication, report it immediately to your doctor. documented in this encounter Progress Notes * Steve Bedolla MD - 07/14/2023 3:23 PM CDT [facility] Referring Provider: Riddhi Bello Patient Active Problem List Diagnosis ??? Biliary colic ??? Gallstones ??? Hypertension ??? 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-sided sciatica ??? Sacroiliac joint dysfunction of both sides ??? S/P TIPS (transjugular intrahepatic portosystemic shunt) ??? 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 s/p TIPS in 2016. -RUQ today showing TIPS with slower velocity compared to 08/2017 but still patent, rec close FU. -rifaximin -holding lactulose for diarrhea -should have BB outpt ??? Secondary esophageal varices (HCC) ??? Type 2 diabetes mellitus with complication, with long-term current use of insulin (HCC) ??? RUQ pain Subjective History: I saw Mr. Curry in [facility] at [facility] today for an initial visit to provide recommendations and/or treatment regarding cirrhosis. He is a 52 year old man who is accompanied by his and 2nd cousin. Liver Disease History: Previously followed by Dr. Kathryn Ellis and Dr. Elian Estrada at [facility] but insurance changed. History of GI bleed [...] medical problems include: diabetes (sugars around 400s); SA in 2000 (took a bottle of pain medication and stepped in front of a bus- had stiches went to a [employer] for his grandkids and nephews now. Does not think about that anymore. , neuropathy, spinal stenosis Current Outpatient Medications Medication Sig ??? ALPRAZolam (XANAX) 0.5 MG tablet Take 1 (one) tablet by mouth 3 times daily as needed for Anxiety ??? blood glucose (TRUE METRIX BLOOD GLUCOSE TEST) test strip Use 1 strip 3 times daily ??? carvedilol (Coreg) 3.125 MG tablet ??? famotidine (Pepcid) 20 MG tablet ??? HUMULIN R U-500 KWIKPEN 500 UNIT/ML SOPN pen Take every 6 hours: 150 units in AM, 150 in afternoon, 150 in evening and 100 units at bedtime ??? HYDROcodone 10 MG CAPS cmpd capsule Take 10 mg by mouth 3 times daily as needed for Pain (Patient not taking: Reported on 07/14/2023) ??? insulin glargine (Lantus SoloStar) pen INJECT 35 UNITS SUBCUTANEOUSLY IN THE MORNING AND 50 UNITS IN THE EVENING ??? INSULIN SYRINGE/NEEDLE U-500 31G X 6MM 0.5 ML (BD INSULIN SYRINGE U-500) 31G X 6MM 0.5 ML MISC Use 1 syringe 4 times daily - before meals & nightly ??? lactulose (CHRONULAC) 10 GM/15ML solution Take 30 mL by mouth 4 times daily ??? omeprazole (PRILOSEC) 20 MG capsule (Patient not taking: Reported on 07/14/2023) ??? ondansetron (ZOFRAN) 4 MG tablet ??? pen needles 09/16 31G X 8 MM 31G X 8 MM Use as directed ??? pregabalin (Lyrica) 150 MG capsule 2 times daily ??? traZODone (Desyrel) 100 MG tablet Take 1 (one) tablet by mouth 2 times daily ??? Trulicity 0.75 MG/0.5ML injection ??? XIFAXAN 550 MG tablet Take 1 tablet by mouth 2 times daily (Patient not taking: Reported on 07/14/2023) No current facility-administered medications for this visit. I have reviewed with Mr. Curry his Medical, Social and Family history and I have updated and corrected these sections of his [facility] electronic health record based on my discussions with him and/orhis family members present at his visit today. Social History Social History Narrative Disabled. 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 Cancer - Other Mother ??? Cancer - Other Father ??? Cancer - Other Maternal Grandmother ??? Cancer - Other Maternal Grandfather ??? Cancer - Other Paternal Grandmother ??? Cancer - Other Paternal Grandfather ??? Other - Hepatic/Liver Neg Hx Review of Systems Gastrointestinal: Positive for abdominal pain, blood in stool, constipation, heartburn, nausea and vomiting. Endo/Heme/Allergies: Bruises/bleeds easily. Objective Physical Exam: I reviewed today's vital signs with the patient. Vitals: 07/14/23 1459 BP: 111/73 Pulse: 108 Temp: 98.6 ??F (37 ??C) SpO2: 96% Weight: 95.3 kg (210 lb) Height: 1.702 m (5' 7 ) Body mass index is 32.89 kg/m??. Wt Readings from Last 3 Encounters: 07/14/23 95.3 kg (210 lb) 10/04/18 124.3 kg (274 lb) 06/02/18 124.3 kg (274 lb) Physical Exam Gen: obese man, no acute distress, appears stated age Lungs: clear to auscultation bilaterally, no increased work of breathing CV: tachycardic, normal S1 and S2, no appreciable murmur Abdomen: obese, soft, no masses palpable, non-tender, non-distended Extremities: no ulcers, no edema Skin: No rashes or lesions, no jaundice Neuro: Alert oriented x 3 Psych: mood normal, appropriate affect Relevant Studies: [...] 08/23/2015 26 Celiac Recent Labs Component Name 06/25/18 0000 WBC 5.5 HGB 13.2* PLT 87* POTASSIUM 4.2 CO2 31 BUN 18 CALCIUM 9.4 ALB 3.6 ALKPHOS 76 AST 58* ALT 77 INR 1.1 Computed MELD 3.0 unavailable. One or more values for this score either were not found within the given timeframe or did not fit some other criterion. Computed MELD-Na unavailable. One or more values for this score either were not found within the given timeframe or did not fit some other criterion. Imaging 05/20/2023: CT wo contrastcholelithiasis, cirrhosis, portal HTN, splenomegaly, significant esophageal varices, subcentimeter indeterminate hypoattenuating lesions in right kuldeep liver, incompletely evaluated TIPS, subtle peripancreatic stranding, Endoscopy 03/24/2023 EGD: G1 EV, PHG, nl duodenum 03/24/2023 Colonoscopy: 1 cm cecal polyp, sigmoid diverticulosis Liver Biopsy Assessment & Plan Camilo Curry is a 52 year old man with cirrhosis and portal HTN. 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 Main complications of portal hypertension include previous EVH now s/p TIPS as well as portosystemic encephalopathy. While he has indications for transplant (encephalopathy), his MELD score is low, and his uncontrolled diabetes He appears to be very insulin resistant. Tells me he did not eat today and his BS are in the 300. Also appears to have many dietary indiscretions when he does eat. He has some liver lesions seen on noncontrast CT which need to be evaluated further. Unfortunately he is allergic to iodinated contrast and he is very claustrophobic. The patient tells me that in thepast he has needed to be admitted for control of sugars when he had to be premedicated with prednisone prior to a CT #Liver lesions: will touch base with his signal intelligence/electronic warfare to see what he recommends to control his sugars. Can also consider admission #Cirrhosis with portal HTN - Varices/Portal hypertensive bleeding: his most recent EGD still with varices. Will check TIPs, but given encephalopathy, likely cannot increase diameter of TIPS. We may need to put him on carvedilol - Ascites: none - PSE: present, on lactulose, have sent message to [employer] obtaining rifaximin (previously prescribed) - HCC: see above - HAV/HBV: needs immunization to both - Discussed avoiding raw shellfish and getting into sea water or brackish water with open wounds - Okay to use APAP for pain, but no more than 2 grams/day. Avoid NSAIDs. #DM: poor glycemic control - Discussed mediterranean diet - may be beneficial for him to get on GLP-1 RA or GIP and decrease insulin use - advised him to see a lunchroom supervisor - discussed limiting simple carbohydrates Patient Instructions Given at Discharge: ? Labs today ? Please obtain vaccination to Hepatitis A and B. Hepatitis A is a series of 2 shots given 6 monthsapart. Hepatitis B is a series of 3 shots given over a period of 6 months. There is a combined Hepatitis A and Hepatitis B shot that is a series of 3 shots given over a period of 6 months. These can be obtained in our office, at your local pharmacy, or at your PCP's office. ? Talk to your signal intelligence/electronic warfare about getting on a more potent medications for Diabetes (Ozempic or Monjauro) ? Consider a Mediterranean diet. Ask to see a lunchroom supervisor locally ? Titrate lactulose to achieve 2-3 soft bowel movements daily. You make have to take miralax in addition. ? I sent a message to see if we can get you rifaximin ? Ultrasound as scheduled ? Will send you a message regarding contrasted imaging ? Limit Tylenol (acetaminophen) to 2 grams (2000 mg) daily. An extra strength Tylenol is 500 mg james regular strength Tylenol is 325 mg. I recommend that you avoid non-steroidal anti-inflammatory drugs (NSAIDs). This includes Ibuprofen, Advil, Aleve, etc given an increased risk of bleeding and renal impairment with these medications. ? Limit salt intake to 2 grams/day. Recommend reviewing sodium content and serving size on food packaging labels. Avoid fast food dining. ? Avoid raw shellfish and do not get into sea water or brackish water with open wounds ? Return to clinic in 6 months with labs the same day An appointment was scheduled for him to see me in followup in 6 months, or sooner if needed. Note routed to: Address letter to: Riddhi Bello [address] [place] [address] Copy to: SONALI Kunz [address] [facility] [address] Orders Placed This Encounter ??? CBC WITH DIFFERENTIAL ??? COMPREHENSIVE METABOLIC PANEL ??? PT-INR [facility] ??? BILIRUBIN DIRECT ??? ALPHA FETOPROTEIN BLOOD TUMOR MARKER ??? NILE BLOOD SCREEN W/REFLEX TITER ??? FERRITIN ??? IRON + TRANSFERRIN PANEL ??? [id number] BLOOD Coding Rationale New or est? New Patient Total time spent on date of encounter: 80 minutes Highest problem complexity: 1 or more chronic illnesses with exacerbation, progression, or side effects of treatment Suggested code: 17229 Prolonged services code (non-Medicare): 20451 x 1 Prolonged services code (Medicare): does not meet Medicare criteria for prolonged services coding documented in this encounter Plan of Treatment Upcoming Encounters Date Type Department Care Team (Late st Contact Info) Description 02/17/2024 11:59 PM CDT Anesthesia Event [facility] MRI [address] [place] [phone] Pushpa Frey, DO [address] [facility] [address] [phone] 05/20/2024 12:30 PM TUBE MAKER Appointment [facility] MRI [address] [place] [address] Steve Bedolla MD [address] [place] [address] 06/30/2024 10:30 AM TUBE MAKER Office Visit [facility] - GI [address] [facility], [place] [address] Steve Bedolla MD [address] [place] [address] documented as of this encounter Goals Goal Patient Goal Type Associated Problems Recent Progress Patient-Stated? Author Medication Management General On track( 024 3:12 PM CDT) Yoly Lyn RN Note: Expected end date: ongoing Interventions: Take all medications as prescribed Let your doctor know right away about any changes in your medications Make sure to request a refill of your medication at least one week prior to your last dose documented as of this encounter Results * [id number]-4-WNYYGPEOXTZ BLOOD (07/14/2023 4:58 PM CDT) [facility] Ehuju-1-Cyaqlh ypsin 182 90 - 200 mg/dL 07/14/2023 5:40 PM CDT [facility] Blood BLOOD SPECIMEN / Unknown Lab Venipuncture / Unknown 07/14/2023 4:58 PM CDT 07/14/2023 5:15 PM CDT Steve Bedolla MD LAB - CHEMISTRY LIONEL WHITT [facility] Organization Address City/State/ZIP Co de Phone Number [facility] [address] [place] [address], [facility] [phone] * IRON + TRANSFERRIN PANEL (07/14/2023 4:58 PM CDT) [facility] Iron 118 50 - 175 ug/dL 07/14/2023 5:39 PM CDT [facility] Transferrin 309 174 - 382 mg/dL 07/14/2023 5:39 PM CDT [facility] Transferrin Saturation % 31 16 - 50 % 07/14/2023 5:39 PM CDT [facility] TIBC Calculated 386 240 - 450 ug/dL 07/14/2023 5:39 PM CDT [facility] Blood BLOOD SPECIMEN / Unknown Lab Venipuncture / Unknown 07/14/2023 4:58 PM CDT 07/14/2023 5:15 PM CDT Steve Bedolla MD LAB - CHEMISTRY LIONEL WHITT [address] [address], [facility] [phone] * FERRITIN (07/14/2023 4:58 PM CDT) Ferritin 71 22 - 275 ng/mL 07/14/2023 5:58 PM CDT [facility] Blood BLOOD SPECIMEN / Unknown Lab Venipuncture / Unknown 07/14/2023 4:58 PM CDT 07/14/2023 5:15 PM CDT Steve Bedolla MD LAB - CHEMISTRY LIONEL WHITT Performing Organization Address City/[facility]/ZIP Co de Phone Number [address] [address], [place] [phone] * NILE BLOOD SCREEN W/REFLEX TITER (07/14/2023 4:58 PM CDT) NILE IgG None Detected None Detected 07/16/2023 10:11 PM CDT [employer] ([facility]) Comment: If suspicion of connective tissue disease is strong and NILE EIA is negative, consider testing for NILE by IFA ([id number]). INTERPRETIVE INFORMATION: Anti-Nuclear Antibodies (NILE), IgG by RAMOS Antinuclear Antibodies (NILE), IgG by RAMOS: NILE specimens are screened using enzyme-linked immunosorbent assay (RAMOS) methodology. All RAMOS results reported as Detected are further tested by indirect fluorescent assay (IFA) using HEp-2 substrate with an IgG-specific conjugate. The NILE RAMOS screen is designed to detect antibodies against dsDNA, histones, SS-A (Ro), SS-B (La), Mclean, Mclean/MANAGER LVN, Scl-70, Evelina-1, centromeric proteins, other antigens extracted from the HEp-2 cell nucleus. INLE RAMOS assays have been reported to have lower sensitivities than NILE IFA for systemic autoimmune rheumatic diseases (SARD). Negative results do not necessarily rule out SARD. Performed By: [place] [address] Occupational Medicine Physician: Benny Desai MD, PhD CLIA Number: [id number] Blood BLOOD SPECIMEN / Unknown Lab Venipuncture / Unknown 07/14/2023 4:58 PM CDT 07/14/2023 5:15 PM CDT Steve Bedolla MD LAB - CHEMISTRY LIONEL WHITT Performing Organization Address [facility]/ZIP Co de Phone Number [facility] ([facility]) [address] [place] [address] * ALPHA FETOPROTEIN BLOOD TUMOR MARKER (07/14/2023 4:58 PM CDT) [facility] Alpha-Fetoprote in Tumor Marker <2.0 <=8.3 ng/mL 07/14/2023 6:11 PM CDT [facility] Comment: AFP values will vary depending on testing procedure used. Results are not comparable across different methods. AFP values obtained by [facility] using an [place] Alinity Immunoassay. Blood BLOOD SPECIMEN / Unknown Lab Venipuncture / Unknown 07/14/2023 4:58 PM CDT 07/14/2023 5:21 PM CDT Steve Bedolla MD LAB - CHEMISTRY LIONEL WHITT Performing Organization Address City/[facility]/ZIP Co de Phone Number [address] [address], [facility] [phone] * BILIRUBIN DIRECT (07/14/2023 4:58 PM CDT) [facility] Bilirubin Conjugated 0.5 0.1 - 0.5 mg/dL 07/14/2023 5:50 PM CDT [facility] Blood BLOOD SPECIMEN / Unknown Lab Venipuncture / Unknown 07/14/2023 4:58 PM CDT 07/14/2023 5:21 PM CDT Steve Bedolla MD LAB - CHEMISTRY ORDE PERI Performing Organization Address [facility] Co de Phone Number [address] [address], [facility] [phone] * (ABNORMAL) PT-INR [facility] (07/14/2023 4:58 PM CDT) PT 14.9(H) 12.1 - 14.8 Seconds 07/14/2023 5:59 PM CDT [facility] INR 1.2 See Comment 07/14/2023 5:59 PM CDT [facility] Comment:The suggested therap eutic range for standard coumadin (warfarin) therapy is an INR of 2.0-3.0. For high-risk patients (Mechanical Mitral Valve Prosthesis, etc.), the suggested prophylactic therapeutic range is an INR of 2.5-3.5. Blood BLOOD SPECIMEN / Unknown Lab Venipuncture / Unknown 07/14/2023 4:58 PM CDT 07/14/2023 5:15 PM CDT Steve Bedolla MD LAB - COAGULATION OR DERABLES Performing Organization Address [facility] Co de Phone Number [address] [address], [place] [phone] * (ABNORMAL) COMPREHENSIVE METABOLIC PANEL (07/14/2023 4:58 PM CDT) BUN 13 7 - 26 mg/dL 07/14/2023 5:50 PM CDT [facility] Creatinine 0.74 0.71 - 1.16 mg/dL 07/14/2023 5:50 PM CDT [facility] Sodium 135(L) 136 - 145 mmol/L 07/14/2023 5:50 PM CDT [facility] Potassium 4.1 3.5 - 4.5 mmol/L 07/14/2023 5:50 PM [facility] Chloride 99 98 - 107 mmol/L 07/14/2023 5:50 PM [facility] CO2 24 22 - 29 mmol/L 07/14/2023 5:50 PM [facility] Glucose 343(H) 70 - 115 mg/dL 07/14/2023 5:50 PM [facility] Calcium 9.9 8.4 - 10.2 mg/dL 07/14/2023 5:50 PM [facility] Protein Total 7.4 6.0 - 8.3 g/dL 07/14/2023 5:50 PM [facility] Albumin 3.8 3.4 - 5.0 g/dL 07/14/2023 5:50 PM [facility] Bilirubin Total 4.8(H) 0.2 - 1.2 mg/dL 07/14/2023 5:50 PM [facility] Alkaline Phosphatase 112 40 - 150 U/L 07/14/2023 5:50 PM [facility] ALT 13 5 - 55 U/L 07/14/2023 5:50 PM [facility] AST 18 5 - 34 U/L 07/14/2023 5:50 PM [facility] Anion Gap 12 6 - 16 07/14/2023 5:50 PM [facility] BUN/Creatinine Ratio 18 7 - 23 07/14/2023 5:50 PM [facility] Osmolality Calculated 294 275 - 295 mOsm/kg 07/14/2023 5:50 PM [facility] Albumin/Globulin Ratio 1.1 1.1 - 2.3 07/14/2023 5:50 PM [facility] eGFR by CKD-EPI >90 >=90 mL/min/1.7 3 m2 07/14/2023 5:50 PM [facility] Blood BLOOD SPECIMEN / Unknown Lab Venipuncture / Unknown 07/14/2023 4:58 PM CDT 07/14/2023 5:21 PM T Steve Bedolla MD LAB - CHEMISTRY ORDE PERI [facility] Organization Address City/State/ZIP Co de Phone Number [facility] [address] [place] [address], [facility] [phone] * (ABNORMAL) CBC WITH DIFFERENTIAL (07/14/2023 4:58 PM CDT) WBC 7.2 4.0 - 10.7 x10E9/L 07/14/2023 5:32 PM CDT [facility] RBC Count 5.81(H) 4.30 - 5.80 x10E12/L 07/14/2023 5:32 PM [facility] Hemoglobin 15.2 13.3 - 17.5 g/dL 07/14/2023 5:32 PM [facility] Hematocrit 43.7 38.7 - 51.1 % 07/14/2023 5:32 PM [facility] MCV 75.2(L) 80.0 - 98.0 fL 07/14/2023 5:32 PM T [facility] MCH 26.2(L) 26.7 - 33.6 pg 07/14/2023 5:32 PM T [facility] MCHC 34.8 31.7 - 36.3 g/dL 07/14/2023 5:32 PM [facility] RDW-CV 18.6(H) 11.3 - 14.8 % 07/14/2023 5:32 PM [facility] Platelet Count 109(L) 150 - 420 x10E9/L 07/14/2023 5:32 PM T [facility] MPV 10.5 7.8 - 11.4 fL 07/14/2023 5:32 PM [facility] Neutrophil % 71.1 41.0 - 74.0 % 07/14/2023 5:32 PM T [facility] Lymphocyte % 15.5(L) 17.0 - 47.0 % 07/14/2023 5:32 PM [facility] Monocyte % 10.2 3.0 - 11.0 % 07/14/2023 5:32 PM CDT [facility] Eosinophil % 1.9 0.0 - 7.0 % 07/14/2023 5:32 PM [facility] Basophil % 1.0 0.0 - 1.6 % 07/14/2023 5:32 PM [facility] Immature Granulocytes % 0.3 0.0 - 1.0 % 07/14/2023 5:32 PM [facility] Neutrophil Absolute 5.15 1.60 - 7.50 x10E9/L 07/14/2023 5:32 PM [facility] Lymphocyte Absolute 1.12 1.00 - 4.40 x10E9/L 07/14/2023 5:32 PM [facility] Monocyte Absolute 0.74 0.15 - 1.00 x10E9/L 07/14/2023 5:32 PM [facility] Eosinophil Absolute 0.14 0.00 - 0.60 x10E9/L 07/14/2023 5:32 PM [facility] Basophil Absolute 0.07 0.00 - 0.13 x10E9/L 07/14/2023 5:32 PM [facility] Blood BLOOD SPECIMEN / Unknown Lab Venipuncture / Unknown 07/14/2023 4:58 PM CDT 07/14/2023 5:22 PM CDT Steve Bedolla MD LAB - HEMATOLOGY ORD ERABLES [facility] [address] [place] [address], [facility] [phone] documented in this encounter Visit Diagnoses Diagnosis Cirrhosis of liver without ascites, unspecified hepatic cirrhosis type (HCC)- Primary Portal hypertension (HCC) Portal hypertension S/P TIPS (transjugular intrahepatic portosystemic shunt) Other postprocedural status Secondary esophageal varices without bleeding (HCC) Esophageal varices without mention of bleeding in diseases classified elsewhere Portosystemic encephalopathy (HCC) Hepatic encephalopathy Type 2 diabetes mellitus with complication, with long-term current use of insulin (HCC) Encounter for screening for other viral diseases Liver lesion Other specified disorders of liver documented in this encounter Care Teams Dry Sand Molder Relationship Specialty Start Date End Date Braydon Pavon PA [address] [place] [address] PCP - General Physician Mold Carrier 07/14/23 documented as of this encounter
--- OUTSIDE RECORDS SUMMARY | 2024-04-19 22:42 | XMS_ITS | Referral Summary ---
Author Organization [facility] Address [address] [facility] [place] [address] Care Team Providers Care Personal Lines Account Executive Name Role Phone Braydon Pavon Primary Care Provider [phone] Source Comments [facility],non-owned Affiliates and Associated Physician Practices is amultiple site organization consisting of ambulatory clinics and hospital sitesin [place], [place]. This disclosure is being madepursuant to the Care Everywhere program and may not contain all information available regarding this patient. Last updated 18.[facility] Encounters Date Type Department Care Team Description 02/16/2024 Travel 02/12/2024 1:52 PM CDT Anesthesia Event [facility] ENDOSCOPY [address] [place] [address] Papo Gamble MD Aranake-Chrisin ger, Amrita, MD 02/12/2024 Travel 02/12/2024 4:00 PM CDT - 02/12/2024 4:30 PM CDT Surgery [facility] ENDOS[facility] [address] [place] [address] Gaby Mistry MD EGD w/ bill 02/12/2024 11:04 AM CDT - 02/12/2024 2:45 PM CDT Hospital Encounter [facility] TORIB[facility] OP [address] [place] [address] Steve Bedolla MD Surgery General Discharge Disposition: Home or Self Care 01/22/2024 Travel 01/22/2024 8:37 PM CDT - 01/22/2024 8:43 PM CDT Emergency [facility] EMERGENCY DEPARTMENT [address] [place] [phone] Discharge Disposition: Left Against Medical Advice/Discontinued Care from Last 3 Months Allergies Active Allergy Reactions Criticality Noted Date [...] as needed for Anxiety Active pen needles 5/16 31G X 8 MM [...] -supportive tx - fluids, zofran, replete lytes Social History Tobacco Use Types Packs/Day Years [...] Mass Index 33.6 02/16/2024 1:51 PM CDT Functional Status Functional Status Response Date of [...] person have difficulty concentrating/remembering/making decisions? No 02/12/2024 Plan of Treatment Upcoming Encounters Date Type Department Care Team (Late st Contact Info) Description 02/17/2024 11:59 PM CDT Anesthesia Event [facility] MRI [address] [place] [phone] Puhspa Frey, DO [address] [facility] DEPT [address] [phone] 05/20/2024 12:30 PM LIMNOLOGY TEACHER Appointment [facility] MRI [address] [place] [phone] Steve Bedolla MD [address] [place] [phone] 06/30/2024 10:30 AM LIMNOLOGY TEACHER Office Visit [facility] - GI [address] [place] [address], [place] [address] Steve Bedolla MD [address] [place] [phone] Goals Goal Patient Goal Type Associated Problems [...] Procedure Name Priority Date/Time Associated Diagnosis Comments NE ED EGD FLEX TRANSORAL DX 02/12/2024 1:47 PM CDT Cirrhosis of liver without ascites, unspecified hepatic cirrhosis type (HCC) Special Needs Message Received: Yesterday Steve Bedolla MD P [facility] Schedulers - Endoscopy Pool Please set up [...] MD, Tyree Ramirez (Fellow) Referring MD: ? Braydno Pavon (Referring MD), Steve Bedolla MD Procedure: [...] Procedure Code(s): ? --- Professional --- ? 42142, Esophagogastroduo denoscopy, flexible, transoral; diagnostic, ? including collection of specimen(s) by brushing or washing, when ? performed (separate procedure) Diagnosis Code(s): ?--- Professional --- ?I85.00, Esophageal varices without bleeding ?K22.89, Other specified disease of esophagus ?K76.6, Portal hypertension ?K31.89, Other diseases of stomach and duodenum ?K31.7, Polyp of stomach and duodenum CPT copyright 2021 [employer]. All rights reserved. The codes documented in this report are preliminary and upon nurse navigator review may be revised to meet current compliance requirements. Gaby Mistry MD 02/12/2024 2:13:14 PM This report has been signed electronically. Note Initiated On: 02/12/2024 1:40 PM Number of Addenda: 0 ? [facility] ? [address] 02/12/2024 1:40 PM CDT Gaby Mistry MD GI PROCEDURE ORDERAB LES [facility] * (ABNORMAL) GLUCOSE - POINT OF CARE (02/12/2024 1:17 PM CDT) Only the most recent of2 resultswithin the time period is included. Glucose WB/POC 277(H) 70 - 115 mg/dL 02/12/2024 1:18 PM CDT [facility] Specimen Type Cap Fingerstick 2023 1:18 PM CDT [facility] Blood BLOOD SPECIMEN / Unknown 02/12/2024 1:17 PM CDT 02/12/2024 1:18 PM CDT Steve Bedolla MD LAB - POINT OF CARE ORDERABLES [facility] [address] [place] [address], [facility] [phone] * (ABNORMAL) COMPREHENSIVE METABOLIC PANEL (12/29/2023 1:12 PM CDT) BUN 13 7 - 26 mg/dL 12/29/2023 2:07 PM [facility] Creatinine 0.73 0.71 - 1.16 mg/dL 12/29/2023 2:07 PM [facility] Sodium 138 136 - 145 mmol/L 12/29/2023 2:07 PM [facility] Potassium 4.8(H) 3.5 - 4.5 mmol/L 12/29/2023 2:07 PM [facility] Chloride 105 98 - 107 mmol/L 12/29/2023 2:07 PM [facility] CO2 25 22 - 29 mmol/L 12/29/2023 2:07 PM [facility] Glucose 362(H) 70 - 115 mg/dL 12/29/2023 2:07 PM [facility] Calcium 9.8 8.4 - 10.2 mg/dL 12/29/2023 2:07 PM [facility] Protein Total 7.0 6.0 - 8.3 g/dL 12/29/2023 2:07 PM [facility] Albumin 3.7 3.4 - 5.0 g/dL 12/29/2023 2:07 PM [facility] Bilirubin Total 3.2(H) 0.2 - 1.2 mg/dL 12/29/2023 2:07 PM [facility] Alkaline Phosphatase 89 40 - 150 U/L 12/29/2023 2:07 PM [facility] ALT 16 5 - 55 U/L 12/29/2023 2:07 PM [facility] AST 23 5 - 34 U/L 12/29/2023 2:07 PM [facility] Anion Gap 8 6 - 16 12/29/2023 2:07 PM [facility] BUN/Creatinine Ratio 18 7 - 23 12/29/2023 2:07 PM [facility] Osmolality Calculated 301(H) 275 - 295 mOsm/kg 12/29/2023 2:07 PM [facility] Albumin/Globulin Ratio 1.1 1.1 - 2.3 12/29/2023 2:07 PM [facility] eGFR by CKD-EPI >90 >=90 mL/min/1.7 3 m2 12/29/2023 2:07 PM [facility]ORY [facility] Blood BLOOD SPECIMEN / Unknown Lab Venipuncture / Unknown 12/29/2023 1:12 PM CDT 12/29/2023 1:37 PM CDT Steve Bedolla MD [facility] Organization Address City/State/ZIP Co de Phone Number [facility] [address] [place] [address], [facility] [phone] * HEMOGLOBIN A1C - POINT OF CARE (AMB) [facility] (05/24/2018) Hemoglobin A1c POCT 8.2 BLOOD SPECIMEN / Unknown 05/24/2018 Edmond Choi MD LAB - POINT OF CARE ORDERABLES from Last 3 Months or Most Recently Relevant to Health Maintenance Care Teams Personal Lines Account Executive Relationship Specialty Start Date End Date Braydon Pavon PA [address] [place] [address] PCP - General Physician Dispatcher Tow Truck 07/14/23
--- OUTSIDE RECORDS SUMMARY | 2024-04-19 22:42 | XMS_ITS | Encounter Summary ---
Author Organization [facility] Address [address] [facility] [place] [address] Care Team Providers Care Carton Stenciler Name Role Phone Braydon Pavon Primary Care Provider Encounter Details Date Type Department Care Team (Late Contact Info) Description 06/08/2018 Orders Only [facility] GI [address] [place] [address] Aleksandr Fink MD [address] [place] [address] S/P TIPS (transjugular intrahepatic portosystemic shunt) Social History Tobacco Use Types Packs/Day Years [...] Description 02/17/2024 11:59 PM CDT Anesthesia Event [facility] MRI [address] [place] [phone] Pushpa Frey DO [address] [phone] 05/20/2024 12:30 PM NCQA SPECIALIST Appointment [facility] MRI [address] [place] [address] Steve Bedolla MD [address] [place] [address] 06/30/2024 10:30 AM NCQA SPECIALIST Office Visit [facility] - GI [address] [facility], [place] [phone] Steve Bedolla MD [address] [place] [address] documented as of this encounter Visit Diagnoses Diagnosis S/P TIPS (transjugular intrahepatic portosystemic shunt)- Primary Other postprocedural status documented in this encounter Care Teams Carton Stenciler Relationship Specialty Start Date End Date Braydon Pavon PA [address] [place] [address] PCP - General Physician Forestry Aide 05/19/18 10/03/18 documented as of this encounter
--- OUTSIDE RECORDS SUMMARY | 2024-04-19 22:42 | XMS_ITS | Encounter Summary ---
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) Procedures US TIPS W ABDOMEN LIMITED Unlnegro, Ordering ProviderMD Referral ID Status Reason Start Date Expiration Date Visits Re quested Visits Authorized [id number] Closed 02/17/2023 02/17/2024 1 1 Reason for Visit * Radiology Services (Routine) - Closed Specialty Diagnoses / Procedures Referred By Contac t Referred To Contact Ultrasound Diagnoses 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) Procedures US TIPS W ABDOMEN LIMITED Elvira, Ordering ProviderMD Referral ID Status Reason Start Date Expiration Date Visits Re quested Visits Authorized [id number] Closed 02/17/2023 02/17/2024 1 1 Encounter Details Date Type Department Care Team (Latest Contact Info) Description 03/04/2023 8:38 AM CDT - 03/04/2023 11:59 PM CDT Hospital Encounter [address] [address] Discharge Disposition: Home or Self Care Social [...] 3 times daily 100 strip 11 12/08/2018 HUMULIN R U-500 KWIKPEN 500 UNIT/ML SOPN [...] 2 times daily 90 tablet 3 08/27/2018 acetaminophen-codein e (TYLENOL #3) 300-30 MG tablet 05/05/2018 07/14/2023 alfuzosin CR 24hr (UROXATRAL) 10 MG tablet Take 1 tablet by mouth once daily 30 tablet 10/04/2018 07/14/2023 hydroCHLOROthiazide (HYDRODIURIL) 25 MG tablet Take 1 tablet by mouth once daily 30 tablet 4 05/24/2018 07/14/2023 insulin glargine (Lantus SoloStar) pen INJECT 35 UNITS SUBCUTANEOUSLY IN THE MORNING AND 50 UNITS IN THE EVENING 02/02/2023 02/16/2024 metFORMIN ER 24hr (GLUCOPHAGE XR) 500 MG tablet Take 2 tablets by mouth daily with dinner 60 tablet 5 10/25/2018 07/14/2023 nitrofurantoin monohyd macro crystals (MACROBID) 100 MG [...] Description 02/17/2024 11:59 PM CDT Anesthesia Event [facility] [place] [address] [place] [phone] Pushpa Frey DO [address] [facility] [address] [phone] 05/20/2024 12:30 PM ABSTRACT CHECKER Appointment 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 Patent transjugular intrahepatic portosystemic shunt (TIPS). Patent left portal vein with significantly decreased velocity and possible bidirectional flow. Recommend attention on follow-up. 2. Hepatic cirrhosis with sequela of portal hypertension including splenomegaly. No discrete hepatic lesion or biliary dilation. 3. No evidence of cholelithiasis or acute cholecystitis. 4. A hypoechoic renal lesion is seen in the right superior pole and measures up to 2.1 cm. It may represent a complicated cyst or a solid lesion. Consider further imaging with contrast-enhanced CT or MRI renal protocol. Report dictated by Robert Faustin MD, (residential glazier). I, Ana Gardner MD have personally reviewed and interpreted this examination/study. > Interpreting Provider: Ana Gardner MD on 03/04/2023 2:12 PM Narrative 03/04/2023 2:12 PM CDT PROCEDURE: ??US TIPS W ABDOMEN LIMITED, DATE/TIME OF EXAM: ??03/04/2023 8:38 AM, LOCATION ??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 FINDINGS: Abdomen: The liver demonstrates coarsened echotexture without surface nodularity. No discrete hepatic mass or intrahepatic biliary dilation is seen. Subcentimeter simple hepatic cyst is seen in the left hemiliver. No gallstones or pericholecystic fluid is seen. The gallbladder wall is normal in thickness, measuring 2 mm. The common bile duct is nondilated, measuring 5 mm. The right kidney measures 10.7 cm. A hypoechoic lesion is seen in the right superior pole measuring 2.1 x 1.9 x 1.5 cm. Limited views of the right kidney reveal no evidence of nephrolithiasis or hydronephrosis. The spleen measures 17.2 cm in length. The pancreas is obscured by overlying bowel gas. No ascites is present. Liver Doppler: Proximal TIPS velocity: 101.6-148.2 cm/s Middle TIPS velocity: 171.1 cm/s Distal TIPS velocity: 113.6 cm/s The TIPS is patent. The left portal vein appears patent; however, the velocity is significantly decreased and bidirectional flow is suggested. The main portal vein velocity is 31.3 cm/s. The hepatic veins are patent with normal waveforms. The proper hepatic artery is patent with normal arterial waveform and resistive index of 0.70. Procedure Note Ana Gardner MD - 03/04/2023 PROCEDURE: US TIPS W ABDOMEN LIMITED, DATE/TIME OF EXAM: 38:38 AM, LOCATION [facility] INDICATION: K75.81: 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) K74.60: 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) ADDITIONAL CLINICAL INFORMATION: Ordering Provider Reason For Exam: 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) Technologist Note: Additional: COMPARISON: None. FINDINGS: Abdomen: The liver demonstrates coarsened echotexture without surface nodularity.No discrete hepatic mass or intrahepatic biliary dilation is seen. Subcentimeter simple hepatic cyst is seen in the left hemiliver. No gallstones or pericholecystic fluid is seen. The gallbladder wall is normal in thickness, measuring 2 mm. The common bile duct is nondilated, measuring 5 mm. The right kidney measures 10.7 cm. A hypoechoic lesion is seen in theright superior pole measuring 2.1 x 1.9 x 1.5 cm. Limited views of the right kidney reveal no evidence of nephrolithiasis or hydronephrosis. Thespleen measures 17.2 cm in length. The pancreas is obscured by overlying bowel gas. No ascites is present. Liver Doppler: Proximal TIPS velocity: 101.6-148.2 cm/s Middle TIPS velocity: 171.1 cm/s Distal TIPS velocity: 113.6 cm/s The TIPS is patent. The left portal vein appears patent; however, the velocity is significantly decreased and bidirectional flow is suggested. The main portal vein velocity is 31.3 cm/s. The hepatic veins are patent with normal waveforms. The proper hepatic artery is patent with normal arterial waveform and resistive index of 0.70. IMPRESSION: 1. Patent transjugular intrahepatic portosystemic shunt (TIPS). Patentleft portal vein with significantly decreased velocity and possible bidirectional flow. Recommend attention on follow-up. 2. Hepatic cirrhosis with sequela of portal hypertension including splenomegaly. No discrete hepatic lesion or biliary dilation. 3. No evidence of cholelithiasis or acute cholecystitis. 4. A hypoechoic renal lesion is seen in the right superior pole and measures up to 2.1 cm. It may represent a complicated cyst or a solid lesion. Consider further imaging with contrast-enhanced CT or MRI renal protocol. Report dictated by Robert Faustin MD, (residential glazier). I, nAa Gardner MD have personally reviewed and interpreted this examination/study. 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
--- OUTSIDE RECORDS SUMMARY | 2024-04-19 22:42 | XMS_ITS | Encounter Summary ---
Author Organization [facility] Address [facility] [place] [address] Care Team Providers Care Reagent Tender Helper Name Role Phone Nikolay Lancaster MD Primary Care Provider [phone] Reason for Visit * Reason Comments Refill Request Encounter Details Date Type Department Care Team (Late Contact Info) Description 01/11/2019 Refill [facility] [address] [place] [address] Fabiola Boyd MD [address] [place] [phone] Refill Request Social History Tobacco Use Types [...] Description 02/17/2024 11:59 PM CDT Anesthesia Event [facility] MRI [address] [place] [phone] Pushpa Frey DO [address] [phone] 05/20/2024 12:30 PM MANAGER STORE Appointment [facility] MRI [address] [place] [phone] Steve Bedolla MD [address] [place] [phone] 06/30/2024 10:30 AM MANAGER STORE Office Visit [facility] - [address], [place] [address] Steve Bedolla MD [address] [place] [phone] documented as of this encounter Visit Diagnoses Diagnosis 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
--- OUTSIDE RECORDS SUMMARY | 2024-04-19 22:42 | XMS_ITS | Encounter Summary ---
Author Organization [facility] Address [facility] [address] Care Team Providers Care Curber Name Role Phone Braydon Pavon Primary Care Provider [phone] Reason for Visit * Auth/Cert (Routine) Specialty Diagnoses / Procedures Referred By Contac t Referred To Contact Diagnoses Cirrhosis of liver without ascites, unspecified hepatic cirrhosis type (HCC) Procedures LA ED EGD FLEX TRANSORAL DX EGD w/ agbim ESOPHAGOGASTRODUODENOSCOPY (EGD) DIAGNOSTIC Referral ID Status Reason Start Date Expiration Date Visits Re quested Visits Authorized [id number] 1 1 Encounter Details Date Type Department Care Team (Latest Contact Info) Description 02/12/2024 11:04 AM CDT - 02/12/2024 2:45 PM CDT Hospital Encounter [facility] OP [address] [place] [address] Steve Bedolla MD [address] [place] [phone] Surgery General Discharge Disposition: Home or Self Care Social [...] encounter Discharge Instructions * Discharge Instructions* Trice Fletcher RN - 02/12/2024 2:16 PM CDT Images [...] ask them during your visits. ?? Copyright [employer] 2020 Information is for End User's use only and may not be sold, redistributed or otherwise used for commercial purposes. All illustrations and images included in CareNotes?? are the copyrighted property of [employer] The above information is an inhalation therapy aides teacher only. It is not intended as medical [...] file Social History Narrative Disabled. 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 [employer] Financial Resource Strain: Not on file Food [...] to engaging gainful employment for short or certified paralegal and even leading to permanent disability and/or [...] changes Gaby Mistry MD Gastroenterology & Hepatology [facility] documented in this encounter Plan of Treatment Upcoming Encounters Date Type Department Care Team (Late st Contact Info) Description 02/17/2024 11:59 PM CDT Anesthesia Event [facility] [address] [place] [address] Pushpa Frey DO [address] [facility] [address] [address] 05/20/2024 12:30 PM HATCHERY HELPER Appointment [facility] MRI [address] [place] [phone] Steve Bedolla MD [address] [place] [phone] 06/30/2024 10:30 AM HATCHERY HELPER Office Visit [facility] - GI [address] [place] [address] [place] [phone] Steve Bedolla MD [address] [place] [phone] documented as of this encounter Goals Goal [...] Procedure Name Priority Date/Time Associated Diagnosis Comments LA ED EGD FLEX TRANSORAL DX 02/12/2024 1:47 PM CDT Cirrhosis of liver without ascites, unspecified hepatic cirrhosis type (HCC) Special Needs Message Received: Yesterday Steve Bedolla MD P [facility] Schedulers - Endoscopy Pool Please set up [...] Procedure Code(s): ? --- Professional --- ? 35375, Esophagogastroduo denoscopy, flexible, transoral; diagnostic, ? including collection of specimen(s) by brushing or washing, when ? performed (separate procedure) Diagnosis Code(s): ?--- Professional --- ?I85.00, Esophageal varices without bleeding ?K22.89, Other specified disease of esophagus ?K76.6, Portal hypertension ?K31.89, Other diseases of stomach and duodenum ?K31.7, Polyp of stomach and duodenum CPT copyright 2021 [employer]. All rights reserved. The codes documented in this report are preliminary and upon rn case management review may be revised to meet current compliance requirements. Gaby Mistry MD 02/12/2024 2:13:14 PM This report has been signed electronically. Note Initiated On: 02/12/2024 1:40 PM Number of Addenda: 0 ? [facility] ? [address] [place] [address] [facility]OVATION 02/12/2024 1:40 PM CDT Gaby Mistry MD GI PROCEDURE ORDERAB LES Performing Organization Address City/[facility]/ZIP Co de Phone Number [facility] * (ABNORMAL) GLUCOSE - POINT OF CARE (02/12/2024 1:17 PM CDT) Glucose WB/POC 277(H) 70 - 115 mg/dL 02/12/2024 1:18 PM CDT [facility] Specimen Type Cap Fingerstick 2023 1:18 PM CDT [facility] Blood BLOOD SPECIMEN / Unknown 02/12/2024 1:17 PM CDT 02/12/2024 1:18 PM CDT Steve Bedolla MD LAB - POINT OF CARE ORDERABLES Performing Organization Address [facility] Co de Phone Number [address] [address], [place] [phone] * (ABNORMAL) GLUCOSE - POINT OF CARE (02/12/2024 11:47 AM CDT) Glucose WB/POC 342(H) 70 - 115 mg/dL 02/12/2024 11:49 AM CDT [facility] Specimen Type Venous 02/12/2024 11:49 AM CDT [facility] Blood BLOOD SPECIMEN / Unknown 02/12/2024 11:47 AM CDT 02/12/2024 11:49 AM CDT Steve Bedolla MD LAB - POINT OF CARE ORDERABLES Performing Organization Address City/[facility]/ZIP Co de Phone Number [address] [address], [place] [phone] documented in this encounter Visit Diagnoses Not on filedocumented [...] RN) documented in this encounter Care Teams Curber Relationship Specialty Start Date End Date Braydon Pavon PA [address] [place] [address] PCP - General Physician Product Promoter Retail Pet 07/14/23 documented as of this encounter
--- OUTSIDE RECORDS SUMMARY | 2024-04-19 22:42 | XMS_ITS | Encounter Summary ---
Author Organization [facility] Address [address] [place], [place] [address] [address] Care Team Providers Care Upholstery Cutter Name Role Phone Braydon Pavon Primary Care Provider [phone] Reason for Visit * Reason Onset Date Comments Refill Request 06/04/2018 Encounter Details Date Type Department Care Team (Late st Contact Info) Description 06/04/2018 Refill [facility] Endocrinology, Diabetes and Metabolism [address] [place] [address] Edmond Choi MD [address] [address] Refill Request Social History Tobacco Use Types [...] Encounter - Mary Grace Paredes LPN - 06/04/2018 1:41 PM CST Called pt to inform that PA is needed for Humulin vial and for pen. Pt did not answer, left vm to return call to this office and speak to nurse. Sending order for vial and syringes to pharmacy. Submitting PA to insurance. Please review and refill if appropriate. MOBILE APPRAISER documented in this encounter Plan of Treatment Upcoming Encounters Date Type Department Care Team (Late st Contact Info) Description 02/17/2024 11:59 PM CDT Anesthesia Event [facility] MRI [address] [place] [phone] Pushpa Frey DO [address] [facility] [address] [place] [phone] 05/20/2024 12:30 PM AUTOMOBILE APPRAISER Appointment [facility] MRI [address] [place] [phone] Steve Bedolla MD [address] [place] [phone] 06/30/2024 10:30 AM AUTOMOBILE APPRAISER Office Visit [facility] - [address] [place] [address], [place] [address] Steve Bedolla MD [address] [place] [phone] documented as of this encounter Visit Diagnoses Not on filedocumented in this encounter Care Teams Upholstery Cutter Relationship Specialty Start Date End Date Braydon Pavon PA [address] [place] [address] PCP - General Physician Tooth Cutter Clutch 05/19/18 10/03/18 documented as of this encounter
--- OUTSIDE RECORDS SUMMARY | 2024-04-19 22:42 | XMS_ITS | Encounter Summary ---
Author Organization [facility] Address [facility] [place] [address] Care Team Providers Care Mud Grinder Name Role Phone Braydon Pavon Primary Care Provider [phone] Nikolay Lancaster MD Primary Care Provider [phone] Braydon Pavon Primary Care Provider [phone] Reason for Visit * Reason Onset Date Comments MEDICATION REFILL 09/08/2018 Encounter Details Date Type Department Care Team (Late Contact Info) Description 09/08/2018 Refill [facility] [address] [facility] [place] [address] Edmond Choi MD [address] [address] MEDICATION REFILL Social History Tobacco Use Types [...] PM CDT Anesthesia Event [facility] MRI [address] [place] [phone] Pushpa Frey, DO [address] [facility] [address] [address] 05/20/2024 12:30 PM ELECTRIC TRACK SWITCH MAINTAINER Appointment [facility] MRI [address] [place] [phone] Steve Bedolla MD [address] [place] [phone] 06/30/2024 10:30 AM ELECTRIC TRACK SWITCH MAINTAINER Office Visit [facility] - GI [address] [facility] [place] [place] [phone] Steve Bedolla MD [facility]5 [place] [phone] documented as of this encounter Visit Diagnoses Not on filedocumented in this encounter Care Teams Mud Grinder Relationship Specialty Start Date End Date Braydon Pavon PA [address] [place] [address] PCP - General Physician Multimedia Author 05/19/18 10/03/18 Nikolay Lancaster MD [address] [place] [address] PCP - General 10/04/18 07/13/23 Braydon Pavon PA [address] [place] [address] PCP - General Physician Multimedia Author 07/14/23 documented as of this encounter
--- OUTSIDE RECORDS SUMMARY | 2024-04-19 22:42 | XMS_ITS | Encounter Summary ---
Author Organization [facility] Address [facility]3 [facility] [place] [address] Care Team Providers Care Layout Operator Name Role Phone Braydon Pavon Primary Care Provider [phone] Encounter Details Date Type Department Care Team (Latest Contact Info) Description 07/24/2023 Travel Social History Tobacco Use Types Packs/Day [...] Description 02/17/2024 11:59 PM CDT Anesthesia Event [facility] [address] [place] [phone] Pushpa Frey DO [address] [facility] [address] [phone] 05/20/2024 12:30 PM COLOR DEPOSITING MACHINE TENDER Appointment [facility] MRI [address] [place] [phone] Steve Bedolla MD [address] [place] [phone] 06/30/2024 10:30 AM COLOR DEPOSITING MACHINE TENDER Office Visit [facility] - [address] [address] Steve Bedolla MD [address] [place] [address] documented as of this encounter Goals Goal [...] on filedocumented in this encounter Care Teams Layout Operator Relationship Specialty Start Date End Date Braydon Pavon PA [address] [place] [address] PCP - General Physician Gas Shovel Operator 07/14/23 documented as of this encounter
--- OUTSIDE RECORDS SUMMARY | 2024-04-19 22:42 | XMS_ITS | Encounter Summary ---
Author Organization [facility] Address [facility]3 [facility] [place] [address] Care Team Providers Care Anchor Tacker Name Role Phone Braydon Pavon Primary Care Provider [phone] Reason for Referral * (Routine) - Open Specialty Diagnoses / Procedures Referred By Contac t Referred To Contact Diagnoses Cirrhosis of liver without ascites, unspecified hepatic cirrhosis type (HCC) Procedures [id number] BLOOD Steve Bedolla MD [address] [place] [phone] Referral ID Status Reason Start Date Expiration Date Visits Re quested Visits Authorized [id number] Open 07/14/2023 07/13/2024 1 1 Reason for Visit * (Routine) - Open Specialty Diagnoses / Procedures Referred By Contwinnie casillas Referred To Contact Diagnoses Cirrhosis of liver without ascites, unspecified hepatic cirrhosis type (HCC) Procedures [id number] BLOOD Steve Bedolla MD [facility] [place] [address] Referral ID Status Reason Start Date Expiration Date Visits Re quested Visits Authorized [id number] Open 07/14/2023 07/13/2024 1 1 Encounter Details Date Type Department Care Team (Latest Contact Info) Description 07/14/2023 4:35 PM CDT - 07/14/2023 11:59 PM CDT Hospital Encounter [facility] LAB OP DRAW STATION [address] [place] [address] Discharge Disposition: Home or Self Care Social [...] daily 1892 mL 3 01/11/2019 pen needles 16 31G X 8 MM 31G X 8 [...] Description 02/17/2024 11:59 PM CDT Anesthesia Event [facility] [address] [place] [phone] Pushpa Frey DO 3[address] [facility] [address] [phone] 05/20/2024 12:[address] CAPTAIN Appointment [facility] [address] [place] [phone] Steve Bedolla MD [address] [place] [phone] 06/30/2024 10:[address] Office Visit [facility] - GI [address] [place] [address], [place] [address] Steve Bedolla MD [address] [place] [phone] documented as of this encounter Goals Goal [...] Name Priority Date/Time Associated Diagnosis Comments PT-INR [facility] Routine 07/14/2023 4:58 PM CDT Cirrhosis of liver without ascites, unspecified hepatic cirrhosis type (HCC) NILE BLOOD SCREEN W/REFLEX TITER Routine 07/14/2023 4:58 PM CDT Cirrhosis of liver without ascites, unspecified hepatic cirrhosis type (HCC) ALPHA FETOPROTEIN BLOOD TUMOR MARKER Routine 07/14/2023 4:58 PM CDT Cirrhosis of liver without ascites, unspecified hepatic cirrhosis type (HCC) [id number] BLOOD Routine 07/14/2023 4:58 PM CDT Cirrhosis of liver without ascites, unspecified hepatic cirrhosis type (HCC) CBC W AUTO DIFFERENTIAL Routine 07/14/2023 4:58 PM CDT Cirrhosis of liver without ascites, unspecified hepatic cirrhosis type (HCC) COMPREHENSIVE METABOLIC PANEL Routine 07/14/2023 4:58 PM CDT Cirrhosis of liver without ascites, unspecified hepatic cirrhosis type (HCC) BILIRUBIN DIRECT Routine 07/14/2023 4:58 PM CDT Cirrhosis of liver without ascites, unspecified hepatic cirrhosis type (HCC) IRON + TRANSFERRIN PANEL Routine 07/14/2023 4:58 PM CDT Cirrhosis of liver without ascites, unspecified hepatic cirrhosis type (HCC) FERRITIN Routine 07/14/2023 4:58 PM CDT Cirrhosis of liver without ascites, unspecified hepatic cirrhosis type (HCC) documented in this encounter Results * [id number] BLOOD (07/14/2023 4:58 PM CDT) Juzvr-8-Dtjpsy ypsin 182 90 - 200 mg/dL 07/14/2023 5:[address] [facility] Blood BLOOD SPECIMEN / Unknown Lab Venipuncture / Unknown 07/14/2023 4:58 PM CDT 07/14/2023 5:15 PM CDT Steve Bedolla MD LAB - CHEMISTRY [facility] [address] [address], [place] [phone] * IRON + TRANSFERRIN PANEL (07/14/2023 4:58 PM CDT) Iron 118 50 - 175 ug/dL 07/14/2023 5:[address] [facility] Transferrin 309 174 - 382 mg/dL 07/14/2023 5:39 PM CDT [facility] Transferrin Saturation % 31 16 - 50 % 07/14/2023 5:39 PM CDT [facility] TIBC Calculated 386 240 - 450 ug/dL 07/14/2023 5:39 PM CDT [facility] Blood BLOOD SPECIMEN / Unknown Lab Venipuncture / Unknown 07/14/2023 4:58 PM CDT 07/14/2023 5:15 PM CDT Steve Bedolla MD LAB - CHEMISTRY [facility] [address] [address], [place] [phone] * FERRITIN (07/14/2023 4:58 PM CDT) Ferritin 71 22 - 275 ng/mL 07/14/2023 5:58 PM CDT [facility] Blood BLOOD SPECIMEN / Unknown Lab Venipuncture / Unknown 07/14/2023 4:58 PM CDT 07/14/2023 5:15 PM CDT Steve Bedolla MD LAB - CHEMISTRY [facility] WH[facility] [address] [address], [place] [phone] * NILE BLOOD SCREEN W/REFLEX TITER (07/14/2023 4:58 PM CDT) Pathologist [facility] NILE IgG None Detected None Detected 07/16/2023 10:11 PM CDT [facility] ([facility]) Comment: If suspicion of connective tissue disease is strong and NILE EIA is negative, consider testing for NILE by IFA ([id number]). INTERPRETIVE INFORMATION: Anti-Nuclear Antibodies (NILE), IgG by RAMOS Antinuclear Antibodies (NILE), IgG by RAMOS: NILE specimens are screened using enzyme-linked immunosorbent assay (RAMOS) methodology. All RAMOS results reported as Detected are further tested by indirect fluorescent assay (IFA) using HEp-2 substrate with an IgG-specific conjugate. The NILE RAMOS screen is designed to detect antibodies against dsDNA, histones, SS-A (Ro), SS-B (La), Mclean, Mclean/BODY MAN, Scl-70, Evelina-1, centromeric proteins, other antigens extracted from the HEp-2 cell nucleus. NILE RAMOS assays have been reported to have lower sensitivities than INLE IFA for systemic autoimmune rheumatic diseases (SARD). Negative results do not necessarily rule out SARD. Performed By: [facility] [address] [place] [address] Speech Language Pathology Assistant: Benny Desai MD, PhD CLIA Number: [id number] Blood BLOOD SPECIMEN / Unknown Lab Venipuncture / Unknown 07/14/2023 4:58 PM CDT 07/14/2023 5:15 PM CDT Steve Bedolla MD LAB - CHEMISTRY [facility] Organization Address City/State/ZIP Co de Phone Number [facility] [employer] [facility]) [address] [place] [address], [facility] * ALPHA FETOPROTEIN BLOOD TUMOR MARKER (07/14/2023 4:58 PM CDT) [facility] Alpha-Fetoprote in Tumor Marker <2.0 <=8.3 ng/mL 07/14/2023 6:[address] [facility] Comment: AFP values will vary depending on testing procedure used. Results are not comparable across different methods. AFP values obtained by [facility] using an Phoenix Alinity Immunoassay. Blood BLOOD SPECIMEN / Unknown Lab Venipuncture / Unknown 07/14/2023 4:58 PM CDT 07/14/2023 5:21 PM CDT Steve Bedolla MD LAB - CHEMISTRY [facility] WHITT Performing Organization Address City/[facility]/ZIP Co de Phone Number [address] [address], [facility] [phone] * BILIRUBIN DIRECT (07/14/2023 4:58 PM CDT) Bilirubin Conjugated 0.5 0.1 - 0.5 mg/dL 07/14/2023 5:[address] [facility] Blood BLOOD SPECIMEN / Unknown Lab Venipuncture / Unknown 07/14/2023 4:58 PM CDT 07/14/2023 5:21 PM CDT Steve Bedolla MD LAB - CHEMISTRY [facility] Performing Organization Address [facility] Co de Phone Number [address] [address], [facility] [phone] * (ABNORMAL) PT-INR [facility] (07/14/2023 4:58 PM CDT) PT 14.9(H) 12.1 - 14.8 Seconds 07/14/2023 5:[address] [facility] INR 1.2 See Comment 07/14/2023 5:[address] [facility] Comment:The suggested therap eutic [...] - COAGULATION OR DERABLES Performing Organization Address [facility] Co de Phone Number [address] [address], [facility] [phone] * (ABNORMAL) COMPREHENSIVE METABOLIC PANEL (07/14/2023 4:58 PM [facility]) BUN 13 7 - 26 mg/dL 07/14/2023 5:50 PM [facility] Creatinine 0.74 0.71 - 1.16 mg/dL 07/14/2023 5:50 PM [facility] Sodium 135(L) 136 - 145 mmol/L 07/14/2023 5:50 PM [facility] Potassium 4.1 3.5 - 4.5 mmol/L 07/14/2023 5:50 PM [facility] Chloride 99 98 - 107 mmol/L 07/14/2023 5:50 PM [facility] CO2 24 22 - 29 mmol/L 07/14/2023 5:50 PM [facility] Glucose 343(H) 70 - 115 mg/dL 07/14/2023 5:50 PM [facility] Calcium 9.9 8.4 - 10.2 mg/dL 07/14/2023 5:50 PM [facility] Protein Total 7.4 6.0 - 8.3 g/dL 07/14/2023 5:50 PM [facility] Albumin 3.8 3.4 - 5.0 g/dL 07/14/2023 5:50 PM [facility] Bilirubin Total 4.8(H) 0.2 - 1.2 mg/dL 07/14/2023 5:50 PM [facility] Alkaline Phosphatase 112 40 - 150 U/L 07/14/2023 5:50 PM [facility] ALT 13 5 - 55 U/L 07/14/2023 5:50 PM [facility] AST 18 5 - 34 U/L 07/14/2023 5:50 PM [facility] Anion Gap 12 6 - 16 07/14/2023 5:50 PM [facility] BUN/Creatinine Ratio 18 7 - 23 07/14/2023 5:50 PM [facility] Osmolality Calculated 294 275 - 295 mOsm/kg 07/14/2023 5:50 PM [facility] Albumin/Globulin Ratio 1.1 1.1 - 2.3 07/14/2023 5:50 PM [facility] eGFR by CKD-EPI >90 >=90 mL/min/1.7 3 m2 07/14/2023 5:50 PM [facility] Blood BLOOD SPECIMEN / Unknown Lab Venipuncture / Unknown 07/14/2023 4:58 PM CDT 07/14/2023 5:21 PM CDT Steve Bedolla MD LAB - CHEMISTRY [facility]ION[facility] WH[facility] [address] [place] [address], [facility] [phone] * (ABNORMAL) CBC WITH DIFFERENTIAL (07/14/2023 4:58 PM CDT) WBC 7.2 4.0 - 10.7 x10E9/L 07/14/2023 5:32 PM [facility] RBC Count 5.81(H) 4.30 - 5.80 x10E12/L 07/14/2023 5:32 PM [facility] Hemoglobin 15.2 13.3 - 17.5 g/dL 07/14/2023 5:32 PM [facility] Hematocrit 43.7 38.7 - 51.1 % 07/14/2023 5:32 PM [facility] MCV 75.2(L) 80.0 - 98.0 fL 07/14/2023 5:32 PM [facility] MCH 26.2(L) 26.7 - 33.6 pg 07/14/2023 5:32 PM [facility] MCHC 34.8 31.7 - 36.3 g/dL 07/14/2023 5:32 PM [facility] RDW-CV 18.6(H) 11.3 - 14.8 % 07/14/2023 5:32 PM [facility] Platelet Count 109(L) 150 - 420 x10E9/L 07/14/2023 5:32 PM [facility] MPV 10.5 7.8 - 11.4 fL 07/14/2023 5:32 PM [facility] Neutrophil % 71.1 41.0 - 74.0 % 07/14/2023 5:32 PM [facility] Lymphocyte % 15.5(L) 17.0 - 47.0 % 07/14/2023 5:32 PM [facility] Monocyte % 10.2 3.0 - 11.0 % 07/14/2023 5:32 PM [facility] Eosinophil % 1.9 0.0 - 7.0 % 07/14/2023 5:32 PM [facility] Basophil % 1.0 0.0 - 1.6 % 07/14/2023 5:32 PM [facility] Immature Granulocytes % 0.3 0.0 - 1.0 % 07/14/2023 5:32 PM [facility] Neutrophil Absolute 5.15 1.60 - 7.50 x10E9/L 07/14/2023 5:32 PM [facility] Lymphocyte Absolute 1.12 1.00 - 4.40 x10E9/L 07/14/2023 5:32 PM [facility] Monocyte Absolute 0.74 0.15 - 1.00 x10E9/L 07/14/2023 5:32 PM [facility] Eosinophil Absolute 0.14 0.00 - 0.60 x10E9/L 07/14/2023 5:32 PM [facility] Basophil Absolute 0.07 0.00 - 0.13 x10E9/L 07/14/2023 5:32 PM [facility] Blood BLOOD SPECIMEN / Unknown Lab Venipuncture / Unknown 07/14/2023 4:58 PM CDT 07/14/2023 5:22 PM CDT Steve Bedolla MD LAB - HEMATOLOGY ORD ERABLES [facility] [address] [place] [address], [facility] [phone] documented in this encounter Visit Diagnoses Diagnosis Cirrhosis of liver without ascites, unspecified hepatic cirrhosis type (HCC) documented in this encounter Care Teams Anchor Tacker Relationship Specialty Start Date End Date Braydon Pavon PA [address] [place] [address] PCP - General Physician Ecmo Specialist 07/14/23 documented as of this encounter
--- OUTSIDE RECORDS SUMMARY | 2024-04-19 22:42 | XMS_ITS | Encounter Summary ---
Author Organization [facility] Address [facility] [place] [address] Care Team Providers Care Hardscape Foreman Name Role Phone Braydon Pavon Primary Care Provider [phone] Encounter Details Date Type Department Care Team (Latest Contact Info) Description 12/29/2023 Travel Social History Tobacco Use Types Packs/Day [...] Description 02/17/2024 11:59 PM CDT Anesthesia Event [facility] [address] [place] [phone] Pushpa Frey DO [address] [facility] [address] [phone] 05/20/2024 12:30 PM LIFE INSURANCE SPECIALIST Appointment [facility] MRI [address] [place] [phone] Steve Bedolla MD [address] [place] [phone] 06/30/2024 10:30 AM LIFE INSURANCE SPECIALIST Office Visit [facility] - [address] [phone] Steve Bedolla MD [address] [place] [address] documented as of this encounter Goals Goal [...] on filedocumented in this encounter Care Teams Hardscape Foreman Relationship Specialty Start Date End Date Braydon Pavon PA [address] [place] [address] PCP - General Physician Senior Marketing Specialist 07/14/23 documented as of this encounter
--- OUTSIDE RECORDS SUMMARY | 2024-04-19 22:42 | XMS_ITS | Encounter Summary ---
Author Organization [facility] Address [address] [place], [place] [address] [address] Care Team Providers Care Master Coastwise Yacht Name Role Phone Braydon Pavon Primary Care Provider [phone] Reason for Visit * Reason Onset Date Comments Medication Prior Auth Request 07/17/2023 Encounter Details Date Type Department Care Team ([facility] Contact Info) Description 07/17/2023 Telephone [facility] - [address] [phone] Sulema Arvizu RPhT Medication Prior Auth Request Social History Tobacco Use Types Packs/Day [...] encounter Miscellaneous Notes * Telephone Encounter - Brianna Arvizu RPhT - 07/17/2023 11:16 AM CDT ----- Message from Steve Bedolla MD sent at 07/14/2023 3:57 PM CDT ----- Regarding: Rifaximin Geovannilo Can we attempt a PA to obtain rifaximin 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 RX previously sent to pharmacy. Thanks UA documented in this encounter Plan of Treatment Upcoming Encounters Date Type Department Care Team ([facility] st Contact Info) Description 02/17/2024 11:59 PM CDT Anesthesia Event [facility] MRI [address] [place] [phone] Pushpa Frey [address] [facility] [address] [phone] 05/20/2024 12:30 PM DATA SCIENCE AND IOT MANAGER Appointment [facility] MRI [address] [place] [phone] Steve Bedolla MD [address] [place] [phone] 06/30/2024 10:30 AM DATA SCIENCE AND IOT MANAGER Office Visit [facility] - [address] [place] [address], [place] [phone] Steve Bedolla MD [address] [place] [phone] documented as of this encounter Goals Goal [...] on filedocumented in this encounter Care Teams Master Coastwise Yacht Relationship Specialty Start Date End Date Braydon Pavon PA [address] [place] [address] PCP - General Physician Courtroom Reporter 07/14/23 documented as of this encounter
--- OUTSIDE RECORDS SUMMARY | 2024-04-19 22:42 | XMS_ITS | Encounter Summary ---
Author Organization [facility] Address [address] [place], [place] [address] [address] Care Team Providers Care Instructor Warper Name Role Phone Braydon Pavon Primary Care Provider [phone] Reason for Visit * Reason Comments Gas Letter Encounter Details Date Type Department Care Team (Late st Contact Info) Description 08/11/2018 Telephone [facility] [address] [place] [address] Karlene Joaquin, RN Gas; Letter Social History Tobacco Use Types Packs/Day Years Used Date Smoking Tobacco: Former Smokeless Tobacco: Never Alcohol Use Standard Drinks/Week Comments No 0 (1 standard drink = 0.6 oz pur e alcohol) Sex and Gender Information Value Date Recorded Sex Assigned at Not on file Gender Identity Not on file Sexual Orientation Not on file documented as of this encounter Progress Notes * Riddhi Tamez RN - 08/11/2018 9:37 AM CDT Attempted to call pt with no answer. Will send a My Chart message. * Karlene Joaquin RN - 08/11/2018 9:17 AM CDT Pt contacts triage line with c/o gas which has been more noticeable lately. Pt also c/o diarrhea heide. Pt taking lactulose 30 ml QID. Reviewed with pt titrating lactulose, suggesting that he only take 3 doses a day. Pt then stated that he can feel when he is getting more confused. Instructed pt totake 4 doses on those days. Instructed pt to contact office if things get worse, otherwise contact office next week to give an update as to if lower dose of lactulose decreased gas. Pt also asking for a letter for disability stating that he continues to have HE, and that he cannotdrive. Pt would like the letter sent to his house. Address verified. documented in this encounter Plan of Treatment Upcoming Encounters Date Type Department Care Team (Late st Contact Info) Description 02/17/2024 11:59 PM CDT Anesthesia Event [facility] MRI [address] [place] [phone] Pushpa Frey DO [address] [facility] DEPT [address] [phone] 05/20/2024 12:30 PM COLLET MAKER Appointment [facility] MRI [address] [place] [address] Steve Bedolla MD [address] [place] [phone] 06/30/2024 10:30 AM COLLET MAKER Office Visit [facility] - [address] [facility], [place] [phone] Steve Bedolla MD [address] [place] [phone] documented as of this encounter Visit Diagnoses Not on filedocumented in this encounter Care Teams Instructor Warper Relationship Specialty Start Date End Date Braydon Pavon PA [address] [place] [address] PCP - General Physician Product Marketing Consultant 05/19/18 10/03/18 documented as of this encounter
--- OUTSIDE RECORDS SUMMARY | 2024-04-19 22:43 | XMS_ITS | Encounter Summary ---
Author Organization [facility] Address [address] [place] [address]. [place] [address] [place] [address] Care Team Providers Care Audit Control Clerk Name Role Phone Braydon Pavon Primary Care Provider [phone] Encounter Details Date Type Department Care Team (Latest Contact Info) Description 02/15/2024 Scan HEALTH INFO [facility] Scanned, Doc Med Group Social History Tobacco Use Types Packs/Day Years Used Date Smoking Tobacco: Former Cigarettes Q uit: 1999 Smokeless Tobacco: Never Alcohol Use Standard Drinks/Week Comments No 0 (1 standard drink = 0.6 oz pur e alcohol) AUDIT-C Answer Date Recorded Frequency of Alcohol Consumption Never 02/08/2019 Average Number of Drinks Not on file 019 Frequency of Binge Drinking Not on file 1012/2018 PHQ-2 Answer Date Recorded Patient Health Questionnaire-2 Score 0 02/15/2024 Sex and Gender Information Value Date Recorded Sex Assigned at Not on file Legal Sex Male 9:36 PM CDT Gender Identity Not on file Sexual Orientation Straight 03/02/2019 9: 44 PM CDT documented as of this encounter Plan of Treatment Upcoming Encounters Date Type Department Care Team (Late st Contact Info) Description 05/10/2024 11:40 AM CABLE INSTALLER Office Visit [facility] Diabetes and Endocrinology - [address] [phone] Eva Power MD [address] [place] [phone] documented as of this encounter Visit Diagnoses Not on filedocumented in this encounter Care Teams Audit Control Clerk Relationship Specialty Start Date End Date Braydon Pavon PA [address] [place] [address] PCP - General PHYSICIAN VARNISH DIPPER 03/02/19 documented as of this encounter
--- OUTSIDE RECORDS SUMMARY | 2024-04-19 22:43 | XMS_ITS | Encounter Summary ---
Author Organization [facility] Address [address] [place] [address]. [place] [address] [place] [address] Care Team Providers Care Advance Agent Name Role Phone Unavailable Primary Care Provider Unavailabl e Encounter Details Date Type Department Care Team (Late Contact Info) Description 04/16/2017 [facility] [address] [place] [address] [place] [address] Lukas Corea MD [address] [place] [address] Social History Tobacco Use Types Packs/Day Years Used Date Smoking Tobacco: Never Assessed Sex and Gender Information Value Date Recorded Sex Assigned at Not on file Legal Sex Male 9:36 PM CDT Gender Identity Not on file Sexual Orientation Straight 03/02/2019 9: 44 PM CDT documented as of this encounter Plan of Treatment Upcoming Encounters Date Type Department Care Team (Late Contact Info) Description 05/10/2024 11:40 AM NEWSPERSON Office Visit [facility] Diabetes and Endocrinology - [address] [phone] Eva Power MD [address] [place] [address] [place] [address] documented as of this encounter Procedures Procedure Name Priority Date/Time Associated Diagnosis Comments INFLUENZA A & B STAT 04/16/2017 11:00 AM NEWSPERSON documented in this encounter Results * INFLUENZA A & B (04/16/2017 11:00 AM NEWSPERSON) SPEC DESCRIPTION NASOPHARYNGEAL SWAB 04/16/2017 11:38 AM NEWSPERSON [facility] SPECIAL REQUESTS NO SPECIAL REQUEST 04/16/2017 11:38 AM NEWSPERSON [facility] RESULT NEGATIVE 04/16/2017 12:08 PM NEWSPERSON [facility] RESULT A NEGATIVE RESULT DOES NOT EXCLUDE INFLUENZA VIRUS INFECTION. ??IF INFLUENZA IS CIRCULATING IN YOUR COMMUNITY, A DIAGNOSIS OF INFLUENZA SHOULD BE CONSIDERED BASED ON A PATIENT'S CLINICAL PRESENTATION AND EMPIRIC ANTIVIRAL TREATMENT SHOULD BE CONSIDERED IF INDICATED. 04/16/2017 12:08 PM NEWSPERSON [facility] NASOPHARYNGEAL SWAB / Unknown 04/16/2017 11:00 AM NEWSPERSON 04/16/2017 11:48 AM NEWSPERSON us Generic Conversion Md RED MICROBIOLOGY - GENERAL ORDERABLES Final Result [facility] [address] [place] [address], documented in this encounter Visit Diagnoses Diagnosis Acute bronchitis documented in this encounter
--- OUTSIDE RECORDS SUMMARY | 2024-04-19 22:43 | XMS_ITS | Encounter Summary ---
Author Organization [facility] Address [address] [place] [address]. [place] [address] [place] [address] Care Team Providers Care Gettering Filament Machine Operator Name Role Phone Unavailable Primary Care Provider Unavailabl e Encounter Details Date Type Department Care Team (Late st Contact Info) Description 12/09/2016 Abstract [facility] Medical Group Diabetes and Endocrinology - [address] [phone] [place] [address] [place] [address] [phone] Social History Tobacco Use Types Packs/Day Years Used Date Smoking Tobacco: Never Assessed Sex and Gender Information Value Date Recorded Sex Assigned at Not on file Legal Sex Male 9:36 PM CDT Gender Identity Not on file Sexual Orientation Straight 03/02/2019 9: 44 PM CDT documented as of this encounter Last Filed Vital Signs Vital Sign Reading Time Taken Comments Blood Pressure 126/74 12/09/2016 11:45 AM CDT Pulse 94 12/09/2016 11:45 AM CDT Temperature - - Respiratory Rate - - Oxygen Saturation - - Inhaled Oxygen Concentration - - Weight 121.6 kg (268 lb) 12/09/2016 11:45 AM CDT Height 172.7 cm (5' 8 ) 12/09/2016 11:45 AM CDT Body Mass Index 40.75 12/09/2016 11:45 AM CDT documented in this encounter Progress Notes * Eva Power MD - 12/09/2016 11:40 AM CDT Reason For Visit Chronic Recheck Visit Chief Complaint 3 months' f/up on type 2 diabetes Since the last vist started U-500 R insulin, dose has been adjusted via the phone BS are getting better A1c 6.9 (was 7.7) BG 242 now SMBG avg BG 256 - 160 in am, > 200 later in the day (used to be avg 300) History of Present Illness Diabetes: The patient is being seen for routine follow-up of Diabetes Mellitus 2. Dx with diabetes in 2011, at first well controlled with A1c <7% on metformin, but uncontrolled in the last 1 yr since dx with liver cirrhosis 2ry to BLAND. Other medical problems include esophageal varices, hepatic encephalopathy, s/p TIPs. Follows with GI in [place] - Dr. Bev [facility] ([facility] A1c 7.7 (September 2016) The HbA1c was 6.9% performed on 12/09/16. Hb/Ht 13/36, plt 81 Current treatment includes Regular insulin (U-500 R 150 units (breakfast and lunch), or 125 if BG in 100s; 100 units at supper) and Metformin HCl (500 mg BID). Caloric intake composed of 3 meals per day:. (No sugar containing beverages) Symptoms reported by the patient include extremity paresthesias, fatigue, erectile dysfunction, recent weight gain and edema, but no extremity pain, no polydipsia, no polyuria, no anorexia, no confusion, no diarrhea, no lower extremity ulcers, no dyspnea and no chest pain. Disease Course and Complications: He has not been found to have any diabetic eye complications. Cardiovascular: no coronary artery disease Neurologic: peripheral neuropathy. Review of Systems Constitutional: fatigue, but no anorexia. Head and Face: negative. Eyes: watery discharge from the eyes, itching of the eyes and blurred vision. ENT: negative. Cardiovascular: no chest pain and no palpitations. Respiratory: no shortness of breath and no wheezing. Gastrointestinal: abdominal pain and abdominal bloating, but no nausea, no bright red blood per rectum and no melena. Genitourinary: urinary frequency and urinary urgency. Musculoskeletal: diffuse joint pain, generalized muscle aches, back pain, joint swelling, joint stiffness, back muscle spasm and pain in other joints. Integumentary and Breasts: no rashes and no skin lesions. Neurological: confusion, leg numbness, leg weakness and tingling. Psychiatric: anxiety, but not suicidal. Hematologic and Lymphatic: no tendency for easy bleeding and no tendency for easy bruising. Active Problems 1. Esophageal varices (456.1) (I85.00) 2. Hepatic encephalopathy (572.2) (K72.90) 3. Left knee pain (719.46) (M25.562) 4. 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 Lumbar radiculopathy (724.4) (M54.16) 6. Lumbar spinal stenosis (724.02) (M48.06) 7. TRACY (obstructive sleep apnea) (327.23) (G47.33) 8. Right knee pain (719.46) (M25.561) 9. Spinal stenosis (724.00) (M48.00) 10. Thrombocytopenia (287.5) (D69.6) 11. Uncontrolled type 2 diabetes mellitus with insulin therapy (250.02,V58.67) (E11.65,Z79.4) Past Medical History 1. History of Anxiety and depression (300.4) (F41.8) 2. History of Esophageal varices with hemorrhage (456.0) (I85.01) 3. History of cholelithiasis (V12.79) (Z87.19) Surgical History 1. Denied: History of Surgery Family History 1. Family history of malignant neoplasm (V16.9) (Z80.9) 2. Family history of malignant neoplasm (V16.9) (Z80.9) 3. Family history of malignant neoplasm (V16.9) (Z80.9) 4. Family history of malignant neoplasm (V16.9) (Z80.9) 5. Family history of type 2 diabetes mellitus (V18.0) (Z83.3) 6. Family history of malignant neoplasm (V16.9) (Z80.9) 7. Family history of hypertension (V17.49) (Z82.49) Social History ?? Applying for disability ?? Former smoker (V15.82) (Z87.891) ?? quit in 2001 ?? History of illicit drug use (305.90) (Z87.898) ?? last time in 1998, was hospitalized for overdose with amphetamine ? Never a smoker ?? No alcohol use ?? No alcohol use Current Meds 1. ALPRAZolam 0.5 MG Oral Tablet; take 1 tab as needed for anxiety; Therapy: 14Sep2016 to Recorded Rx By: Eva Power; Dispense: 0 Days ; #:10 Tablet; Refill: 0; KATLYN = N; Record 2. BD Insulin Syringe Ultrafine 30G X 1/2 1 ML Miscellaneous; INJECTING 3 TIMES DAILY; Therapy: 09Sep2016 to (Evaluate:04Sep2017); Last Rx:09Sep2016 Ordered Rx By: Eva Power; Dispense: 30 Days ; #:1 X 100 Miscellaneous Box; Refill: 11; For: Uncontrolled type 2 diabetes mellitus with insulin therapy; KATLYN = N; Record 3. HumuLIN R U-500 KwikPen 500 UNIT/ML Subcutaneous Solution Pen-injector; inject 100 units before each meal; Therapy: 09Oct2016 to (Last Rx:09Oct2016) Requested for: 09Oct2016 Ordered Rx By: Eva Power; Dispense: 0 Days ; #:3 X 3 ML Pen (2 Pens); Refill: 5; For: Uncontrolled type2 diabetes mellitus with insulin therapy; KATLYN = N; Verified Transmission to [employer]; Msg to Pharmacy: D/c Humalog, d/c Lantus; Last Updated By: Meka Phillips; 12/09/2016 12:11:18 PM 4. Hydrocodone-Acetaminophen 10-325 MG Oral Tablet; Therapy: (Recorded:03Jan2015) to Recorded Dispense: 0 Days ; #: Sufficient TABS; Refill: 0; KATLYN = N; Record; Last Updated By: Judy Ledesma;01/03/2015 11:58:23 PM 5. Lactulose 10 GM/15ML Oral Solution; 30 ml (2 Tbsp) QID; Therapy: 14Sep2016 to Recorded Rx By: Eva Power; Dispense: 0 Days ; #: Sufficient ML; Refill: 0; For: Hepatic encephalopathy; KATLYN = N; Record 6. MetFORMIN HCl - 500 MG Oral Tablet; Therapy: (Recorded:28Prk1538) to Recorded Dispense: 0 Days ; #: Sufficient TABS; Refill: 0; KATLYN = N; Record; Last Updated By: Judy Ledesma;01/03/2015 11:58:23 PM 7. Omeprazole 20 MG Oral Capsule Delayed Release; TAKE 1 CAPSULE DAILY EVERY MORNING BEFORE BREAKFAST; Therapy: [id number] to Recorded Rx By: Eva Power; Dispense: 0 Days ; #: Sufficient Capsule Delayed Release; Refill: 0; KATLYN = N;Record 8. OneTouch Ultra Blue In Vitro Strip; TESTING 3 TIMES DAILY; Therapy: 29Hxk0998 to (Evaluate:98Rui4879) Requested for: 73Qbr5768; Last Rx:[id number] Ordered Rx By: Eva Power; Dispense: 90 Days ; #:3 X 100 Strip Box; Refill: 3; For: Uncontrolled type 2 diabetes mellitus with insulin therapy; KATLYN = N; Verified Transmission to [facility]; Last Updated By: Kenji PhillipsREAC [employer]; 12/09/2016 12:11:17 PM 9. Xanax TABS; Therapy: (Recorded:50Wfg8015) to Recorded Dispense: 0 Days ; #: Sufficient TABS; Refill: 0; KATLYN = N; Record; Last Updated By: Judy Ledesma;01/03/2015 11:58:23 PM 10. Xifaxan 550 MG Oral Tablet; Therapy: 41Cqs1541 to Recorded Rx By: Eva Power; Dispense: 0 Days ; #: Sufficient Tablet; Refill: 0; KATLYN = N; Record Allergies 1. Azactam Recorded By: Eva Power; 09/09/2016 10:27:51 PM 2. azithromycin Recorded By: Judy Ledesma; 01/03/2015 11:58:23 PM 3. aztreonam Recorded By: Eva Power; 09/09/2016 10:27:51 PM 4. Ciprofloxacin HCl TABS Recorded By: Eva Power; 09/09/2016 10:27:51 PM 5. erythromycin Recorded By: Eva Power; 09/09/2016 10:27:05 PM 6. esomeprazole Recorded By: Judy Ledesma; 01/03/2015 11:58:23 PM 7. NexIUM 24HR TBEC Recorded By: Eva Power; 09/09/2016 10:27:05 PM 8. nisoldipine Recorded By: Jduy Ledesma; 01/03/2015 11:58:23 PM 9. octreotide Recorded By: Eva Power; 09/09/2016 10:27:51 PM 10. Penicillins Recorded By: Eva Power; 09/09/2016 10:27:05 PM 11. Penicillins Recorded By: Judy Ledesma; 01/03/2015 11:58:23 PM 12. sulfa Recorded By: Judy Ledesma; 01/03/2015 11:58:23 PM 13. Sulfa Drugs Recorded By: Eva Power; 09/09/2016 10:27:05 PM Vitals Recorded: 33Joe4897 11:45AM Heart Rate 94 Systolic 126 Diastolic 74 Height 5 ft 8 in Weight 268 lb BMI Calculated 40.75 BSA Calculated 2.31 Physical Exam Constitutional General appearance: No acute distress, well appearing and well nourished. patient was observed to be moderately obese. Ears, Nose, Mouth, and Throat Oropharynx: Abnormal. Oropharynx examination showed petechial hemorrhages. Neck Thyroid: Normal, no thyromegaly. Pulmonary Respiratory effort: No increased work of breathing or signs of respiratory distress. Auscultation of lungs: Clear to auscultation. Cardiovascular Auscultation of heart: Normal rate and rhythm, normal S1 and S2, no murmurs. Examination of extremities for edema and/or varicosities: Normal. Abdomen Abdomen: Non-tender, no masses. The abdomen was soft. Liver and spleen: Abnormal. The liver was nontender. The spleen was enlarged, but nontender. Musculoskeletal Gait and station: Normal. Muscle strength/tone: Normal. Skin Skin and subcutaneous tissue: Normal without rashes or lesions. Clinical impression: no jaundice, no xanthelasma and no xanthoma. Neurologic Cranial nerves: Cranial nerves 2-12 intact. no tremors. Diabetic Foot Exam: Right Foot Findings: no swelling, no maceration and no ulcers. The toes were normal. The sensory exam showed diminished vibratory sensation at the level of the toes. Left Foot Findings: no swelling. Monofilament Testing: diminished tactile sensation with monofilament testing throughout both feet. Vascular: Pulses: 2+ in the dorsalis pedis. Psychiatric Judgment and insight: Normal. Mood and affect: Normal. Results/Data *Glucose, Whole Blood In Office [id number] 11:47AM Eva Power Test Name Result Flag Reference Glucose Finger Stick 242 mg/dl 70 - 110 mg/dl *A1C In Office [id number] 11:46AM Eva Power Test Name Result Flag Reference A1C 6.9 4.2 - 6.5 % HbA1C Counseling The patient was counseled regarding diagnostic results, instructions for management, risk factor reductions, prognosis, patient and family education, impressions, risks and benefits of treatment options and importance of compliance with treatment. U-500 R insulin pharmacodynamics and kinetics explained. Do not take more often than prescribed due to risk of hypoglycemia. total time of encounter was 25 minutes and 20 minutes was spent counseling. Assessment 1. Uncontrolled type 2 diabetes mellitus with insulin therapy (250.02,V58.67) (E11.65,Z79.4) 2. 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 Morbid obesity with BMI of 40.0-44.9, adult (278.01,V85.41) (E66.01,Z68.41) Uncontrolled type 2 diabetes on insulin therapy in a patient with advanced liver cirrhosis 2ry to BLAND - gradually improving glycemic control Glucometer data reviewed - avg BG 256 , highest is before supper Plan 1. We encourage all of our patients to exercise regularly. 30 minutes of exercise or physical activity five or more days a week is recommended for children and adults.; Status:Complete; Done: [id number] Ordered; For:Morbid obesity with BMI of 40.0-44.9, adult; Ordered By:Eva Power; 2. We recommend that you follow the Mediterranean diet. ; Status:Complete; Done: [id number] Ordered; For:Morbid obesity with BMI of 40.0-44.9, adult; Ordered By:Eva Power; 3. Fototwics Ultra Mini w/Device Kit; USE DIRECTED Rx By: Eva Power; Dispense: 0 Days ; #:1 Kit; Refill: 0; For: Uncontrolled type 2 diabetes mellitus with insulin therapy; KATLYN = N; Verified Transmission to [employer]; Last Updated By: [employer]; 12/09/2016 12:11:19 PM 4. HumuLIN R U-500 KwikPen 500 UNIT/ML Subcutaneous Solution Pen-injector; inject 150 units before breakfast and lunch, and 100 untis before supper Rx By: Eva Power; Dispense: 0 Days ; #:4 X 3 ML Pen (2 Pens); Refill: 11; For: Uncontrolled type 2 diabetes mellitus with insulin therapy; KATLYN = N; Verified Transmission to [employer]; Last Updated By: [employer]; 12/09/2016 12:11:18 PM 5. OneTouch Ultra Blue In Vitro Strip; TESTING 6 TIMES DAILY Rx By: Eva Power; Dispense: 0 Days ; #:2 X 100 Strip Box; Refill: 11; For: Uncontrolled type 2 diabetes mellitus with insulin therapy; KATLYN = N; Verified Transmission to [employer]; Last Updated By: [employer]; 12/09/2016 12:11:17 PM 6. *A1C In Office; Status:Complete; Done: 93Ryj3987 11:46AM Performed:In Office; Due:51Bbw7692; Last Updated By:Chantelle Espinoza; 12/09/2016 11:47:16 AM;Ordered; For:Uncontrolled type 2 diabetes mellitus with insulin therapy; Ordered By:Eva Power; 7. *Glucose, Whole Blood In Office; Status:Complete; Done: 05Exa0723 11:47AM Performed:In Office; Due:69Oka1331; Last Updated By:Chantelle Espinoza; 12/09/2016 11:47:16 AM;Ordered; For:Uncontrolled type 2 diabetes mellitus with insulin therapy; Ordered By:Eva Power; 8. CMP (Comprehensive Metabolic Profile); Status:Active; Requested for:11May2017; Perform:Other Lab; Due:39Fnh5549;Ordered; For:Uncontrolled type 2 diabetes mellitus with insulin therapy; Ordered By:Eva Power; 9. Hemoglobin A1C Profile; Status:Active; Requested for:11May2017; Perform:Other Lab; Due:18Hrg1301;Ordered; For:Uncontrolled type 2 diabetes mellitus with insulin therapy; Ordered By:Eva Power; 10. TSH (Thyroid Stim Hormone); Status:Active; Requested for:11May2017; Perform:Other Lab; Due:10Jun2017;Ordered; For:Uncontrolled type 2 diabetes mellitus with insulin therapy; Ordered By:Eva Power; 11. Urine Microalbumin Profile; Status:Active; Requested for:11May2017; Perform:Other Lab; Due:13Ruy4798;Ordered; For:Uncontrolled type 2 diabetes mellitus with insulin therapy; Ordered By:Eva Power; Treatment plan was discussed with the patient U-500 R 150 before breakfast and lunch, 150 units before supper (of BG < 200 before supper - take 60) Check BG in am, supper, bedtime MNT today Will need labs - urine microalbumin, CMP, TSH, lipids Foot care discussed F/up in 6 months Signatures Electronically signed by : Eva Power M.D.; Dec 09 2016 10:20PM RE RECORDING MIXER (Author) documented in this encounter Plan of Treatment Upcoming Encounters Date Type Department Care Team (Late st Contact Info) Description 05/10/2024 11:40 AM RE RECORDING MIXER Office Visit [facility] Medical Group Diabetes and Endocrinology - [address] [phone] Eva Power MD [address] [place] [id number] documented as of this encounter Procedures Procedure Name Priority Date/Time Associated Diagnosis Comments GLUCOSE BLOOD, MONITOR DEVICE Routine 12/09/2016 11:47 AM CDT HEMOGLOBIN, GLYCOSYLATED Routine 12/09/2016 11:46 AM CDT documented in this encounter Results * GLUCOSE BLOOD, MONITOR DEVICE (12/09/2016 11:47 AM CDT) GLUCOSE 242 70 - 110 mg/dl milligrams per deciliter [facility] TO EPIC CONVERSION 12/09/2016 11:4 7 AM CDT 12/09/2016 11:47 AM CDT us Eva Power MD LABORATORY Final Result [facility] TO EPIC CONVERSION * HEMOGLOBIN, GLYCOSYLATED (12/09/2016 11:46 AM CDT) HGB A1C 6.9 4.2 - 6.5 % HbA1C [facility] TO EPIC CONVERSION 12/09/2016 11:4 6 AM CDT 12/09/2016 11:46 AM CDT us Eva Power MD LABORATORY Final Result [facility] TO EPIC CONVERSION documented in this encounter Visit Diagnoses Not on filedocumented in this encounter
--- OUTSIDE RECORDS SUMMARY | 2024-04-19 22:43 | XMS_ITS | Encounter Summary ---
Author Organization [facility] Address [address] [place] [address]. [place] [address] [place] [address] Care Team Providers Care Route Delivery Driver Name Role Phone None, Provider Primary Care Provider Braydon Piedra Primary Care Provider [phone] Reason for Visit * Reason Comments Image (SCAN) Encounter Details Date Type Department Care Team (Latest Contact Info) Description 07/19/2018 Scan HEALTH INFO [facility] Scanned, Documents Image (SCAN) Social History Tobacco Use Types Packs/Day Years Used Date Smoking Tobacco: Never Assessed AUDIT-C Answer Date Recorded Frequency of Alcohol Consumption Never 02/08/2019 Average Number of Drinks Not on file 019 Frequency of Binge Drinking Not on file 12/2018 Sex and Gender Information Value Date Recorded Sex Assigned at Not on file Legal Sex Male 9:36 PM CDT Gender Identity Not on file Sexual Orientation Straight 03/02/2019 9: 44 PM CDT documented as of this encounter Plan of Treatment Upcoming Encounters Date Type Department Care Team (Late st Contact Info) Description 05/10/2024 11:40 AM DECORATIVE ENGRAVER APPRENTICE Office Visit [facility] Medical Group Diabetes and Endocrinology - [address] [phone] Eva Power MD [address] [place] [id number] documented as of this encounter Procedures Procedure Name Priority Date/Time Associated Diagnosis Comments IMAGE GENERIC Routine 07/19/2018 documented in this encounter Results * IMAGE STUDY (07/19/2018) Anatomical Region Laterality Modality Other us Documents Scanned SCANNING Final Result documented in this encounter Visit Diagnoses Not on filedocumented in this encounter Care Teams Route Delivery Driver Relationship Specialty Start Date End Date None, Provider, PCP - General 02/08/19 03/01/19 Braydon Pavon PA [address] [place] [address] PCP - General PHYSICIAN SKIVER [place]EL[place] END 03/02/19 documented as of this encounter
--- OUTSIDE RECORDS SUMMARY | 2024-04-19 22:43 | XMS_ITS | Encounter Summary ---
Author Organization [facility] Address [address] [place] [address]. [place] [address] [place] [address] Care Team Providers Care Basketball Referee Name Role Phone Unavailable Primary Care Provider Unavailabl e Encounter Details Date Type Department Care Team (Latest Contact Info) Description 03/09/2018 Scan [facility] Sarina Gamez MD Social History Tobacco Use Types Packs/Day Years [...] st Contact Info) Description 05/10/2024 11:40 AM ETL INFORMATICA ARCHITECT Office Visit [facility] Medical Group Diabetes and Endocrinology - [address] [phone] Eva Power MD [address] [place] [phone] documented as of this encounter Visit Diagnoses Not on filedocumented in this encounter
--- OUTSIDE RECORDS SUMMARY | 2024-04-19 22:43 | XMS_ITS | Encounter Summary ---
Author Organization [facility] Address [address] [place] [address]. [place] [address] [place] [address] Care Team Providers Care Teletype Clerk Name Role Phone Unavailable Primary Care Provider Unavailabl e Encounter Details Date Type Department Care Team (Late Contact Info) Description 02/04/2018 [facility] Emergency Room [address] [place] [address] [place] [address] Faith Choe MD [address] [place] [address] Social History Tobacco Use Types Packs/Day Years [...] (Late Contact Info) Description 05/10/2024 11:40 AM IMAGING ANALYST Office Visit [facility] Medical Group Diabetes and Endocrinology - [address] [phone] Eva Power MD [address] [place] [address] documented as of this encounter Procedures Procedure Name Priority Date/Time Associated Diagnosis Comments GLUCOSE BLOOD, QNT Routine 02/04/2018 7: 52 PM CDT BETA-HYDROXYBUTYRATE STAT 02/04/2018 6:15 PM CDT BLOOD GAS, VENOUS STAT 02/04/2018 6:1 5 PM CDT COMPREHENSIVE METABOLIC PANEL STAT 02/04/2018 6:15 PM CDT CBC W/DIFF AUTOMATED STAT 02/04/2018 6:15 PM CDT AMMONIA STAT 02/04/2018 6:15 PM CDT URINALYSIS WI REFLEX TO CULTURE STAT 02/04/2018 6:01 PM CDT documented in this encounter Results * (ABNORMAL) GLUCOSE BLOOD, QNT (02/04/2018 7:52 PM CDT) [facility] Signature GLUCOSE POC 201(H) 70 - 140 MG/DL 02/04/2018 7:55 PM CDT [facility] LAB ORDERS INTERFACE 02/04/2018 7:52 PM CDT 02/04/2018 7:55 PM CDT us Generic Conversion Md RED LABORATORY Final R esult [facility] LAB ORDERS INTERFACE US * (ABNORMAL) Blood gas, venous (02/04/2018 6:15 PM CDT) O2 SAT VENOUS 98(H) 40 - 70 % 02/04/2018 6:30 PM CDT [facility] PH VENOUS 7.42 7.35 - 7.45 02/04/2018 6:30 PM CDT [facility] PCO2 38.2(L) 41.0 - 51.0 MMHG 02/04/2018 6:30 PM CDT [facility] PO2 VENOUS 95.0(H) 20.0 - 40.0 MM HG 02/04/2018 6:30 PM CDT [facility] VENOUS BASE EXCESS 0.7 MMOL/L 02/04/2018 6:30 PM CDT [facility] BICARB VENOUS 24.5 22.0 - 29.0 MMOL/L 02/04/2018 6:30 PM CDT [facility] TCO2 25.6 25.0 - 29.0 MMOL/L 02/04/2018 6:30 PM CDT [facility] LITER FLOW ROOM AIR 02/04/2018 6:25 PM CDT [facility] 02/04/2018 6:15 PM CDT 02/04/2018 6:24 PM CDT us Generic Conversion Md RED LABORATORY Final R esult [facility] [address] [place] [address], * (ABNORMAL) COMPREHENSIVE METABOLIC PANEL (02/04/2018 6:15 PM CDT) SODIUM S/P/B 139 136 - 145 MMOL/L 02/04/2018 6:44 PM CDT [facility] POTASSIUM S/P/B 3.9 3.5 - 5.1 MMOL/L 02/04/2018 6:44 PM CDT [facility] CHLORIDE S/P/B 103 98 - 107 MMOL/L 02/04/2018 6:44 PM CDT [facility] CO2 26.4 21.0 - 32.0 MMOL/L 02/04/2018 6:44 PM CDT [facility] GLUCOSE 312(H) 70 - 140 MG/DL 02/04/2018 6:44 PM CDT [facility] BUN 7 6 - 24 MG/DL 02/04/2018 6:44 PM CDT [facility] CREATININE S/P/B 0.87 0.70 - 1.30 MG/DL 02/04/2018 6:44 PM CDT [facility] CALCIUM S/P/B 9.1 8.4 - 10.5 MG/DL 02/04/2018 6:44 PM CDT [facility] BILIRUBIN TOTAL S/P/B 1.0 0.2 - 1.0 MG/DL 02/04/2018 6:44 PM [facility] ALKALINE PHOSPHATASE S/P/B 93 45 - 115 U/L 02/04/2018 6:44 PM [facility] AST 108(H) 15 - 37 U/L 02/04/2018 6:44 PM [facility] ALT 118(H) 16 - 63 U/L 02/04/2018 6:44 PM [facility] TOTAL PROTEIN S/P/B 6.8 6.4 - 8.2 G/DL 02/04/2018 6:44 PM [facility] ALBUMIN S/P/B 3.3(L) 3.4 - 5.0 G/DL 02/04/2018 6:44 PM [facility] ANION GAP 9.6 MMOL/L 02/04/2018 6:44 PM [facility] Comment:REFERENCE RANGE NOT ESTABLISHED OSMOLALITY (CALC) 298 MOSM/KG 02/04/2018 6:44 PM [facility] Comment:REFERENCE RANGE NOT ESTABLISHED EGFR NON-AFR. AMER. >90 >89 ML/MIN/1 .73 M2 02/04/2018 6:44 PM [facility] EGFR AFR. AMER. >90 >89 ML/MIN/1 .73 M2 02/04/2018 6:44 PM [facility] GFR NOTES THE ESTIMATED GFR IS CALCULATED USING THE 2009 CKD-EPI EQUATION. THE FOLLOWING CATEGORIES FOR GRADING RENAL FUNCTION ARE RECOMMENDED BY THE INTERNATIONAL SOCIETY OF NEPHROLOGY (KDIGO 2012 CLINICAL PRACTICE GUIDELINE). 02/04/2018 6:44 PM [facility] Comment: G1,NORMAL OR HIGH: >89 ml/min/1.73 m2G2,MILDLY DECREASED: 60-89 ml/min/1.73 m2G3A,MILDLY TO MODERATELY DECREASED: 45-59 ml/min/1.73 m2G3B,MODERATELY TO SEVERELY DECREASED: 30-44 ml/min/1.73 m2G4,SEVERELY DECREASED: 15-29 ml/min/1.73 m2G5,KIDNEY FAILURE: <15 ml/min/1.73 m2 PLASMA SPECIMEN / Unknown 02/04/2018 6:15 PM CDT 02/04/2018 6:24 PM CDT us Generic Conversion Md RED LABORATORY Final R esult [facility] [address] [place] [address], * (ABNORMAL) CBC W/DIFF AUTOMATED (02/04/2018 6:15 PM CDT) WBC 4.6 4.5 - 10.8 x10'3/uL 02/04/2018 6:34 PM CDT [facility] RBC 4.49(L) 4.50 - 6.10 x10'6/uL 02/04/2018 6:34 PM CDT [facility] HGB 12.4(L) 13.0 - 18.0 G/DL 02/04/2018 6:34 PM CDT [facility] HCT 36.9(L) 37.0 - 52.0 % 02/04/2018 6:34 PM CDT [facility] MCV 82.2 78.0 - 100.0 FL 02/04/2018 6:34 PM CDT [facility] MCH 27.6 27.0 - 31.0 PG 02/04/2018 6:34 PM CDT [facility] MCHC 33.6 33.0 - 36.0 G/DL 02/04/2018 6:34 PM CDT [facility] RDW 15.1(H) 11.5 - 14.5 % 02/04/2018 6:34 PM CDT [facility] PLT 88(L) 150 - 350 x10'3/uL 02/04/2018 6:34 PM CDT [facility] MPV 10.8(H) 7.4 - 10.4 FL 02/04/2018 6:34 PM CDT [facility] SEG NEUTROPHILS 75.9 % 8 6:57 PM CDT [facility] LYMPHOCYTES 12.5 % 02/04/2018 6:57 PM CDT [facility] MONOCYTES 8.8 % 02/04/2018 6:57 PM CDT [facility] EOSINOPHILS 2.2 % 02/04/2018 6:57 PM CDT [facility] BASOPHILS 0.4 % 02/04/2018 6:57 PM CDT [facility] IMMATURE GRANS % 0.2 % 02/05/20 18 6:57 PM CDT [facility] NRBC 0.0 % 02/04/2018 6:57 PM CDT [facility] ABS. NEUTROPHILS 3.49 1.60 - 8.30 x10'3/uL 02/04/2018 6:57 PM CDT [facility] ABS. LYMPHOCYTES 0.58(L) 0.80 - 4.70 x10'3/uL 02/04/2018 6:57 PM CDT [facility] ABS. MONOCYTES 0.40 0.00 - 1.50 x10'3/uL 02/04/2018 6:57 PM CDT [facility] ABS. EOSINOPHILS 0.10 0.00 - 0.40 x10'3/uL 02/04/2018 6:57 PM CDT [facility] ABS. BASOPHILS 0.02 0.00 - 0.20 x10'3/uL 02/04/2018 6:57 PM CDT [facility] ABS. IMMATURE GRANULOCYTES 0.01 0.00 - 0.03 x10'3/uL 02/04/2018 6:57 PM CDT [facility] ABS. NUCLEATED RBC'S 0.00 0.00 x10'3/uL 02/04/2018 6:57 PM CDT [facility] PLT MORPH. DECREASED 02/04/2018 6:57 PM CDT [facility] RBC MORPHOLOGY NORMAL 02/04/2018 6:57 PM CDT [facility] OTHER (type in comments) 02/04/2018 6:15 PM CDT 02/04/2018 6:24 PM CDT Comment:WHOLE BLOOD SAMPLE us Generic Conversion Md RED LABORATORY Final R esult [facility] [address] [place] [address], [place] [phone] * BETA-HYDROXYBUTYRATE (02/04/2018 6:15 PM CDT) BETA-HYDROXYBUT YRATE 0.0 0.0 - 0.3 MMOL/L 02/04/2018 6:30 PM CDT [facility] SERUM OR PLASMA SPECIMEN / Unknown 02/04/2018 6:15 PM CDT 02/04/2018 6:24 PM CDT us Generic Conversion Md RED LABORATORY Final R [facility] Performing Organization Address City/[facility]/ZIP Co de Phone Number [facility] [address] [place] [address], [place] [phone] * (ABNORMAL) AMMONIA (02/04/2018 6:15 PM CDT) AMMONIA 67(H) 11 - 32 UMOL/L 02/04/2018 6:40 PM CDT [facility] Comment:MILD HEMOLYSIS, RESU LT MAY BE AFFECTED. PLASMA SPECIMEN / Unknown 02/04/2018 6:15 PM CDT 02/04/2018 6:24 PM CDT us Generic Conversion Md RED LABORATORY Final R esult [facility] [place] [address], [place] [phone] * (ABNORMAL) URINALYSIS WI REFLEX TO CULTURE (02/04/2018 6:01 PM CDT) COLOR (U) YELLOW 02/04/2018 6:15 PM CDT [facility] TRANSPARENCY CLEAR 02/04/2018 6:15 PM CDT [facility] SPECIFIC GRAVITY (U) 1.010 1.000 - 1.025 02/04/2018 6:15 PM CDT [facility] U PH 6.0 5.0 - 8.0 02/04/2018 6:15 PM CDT [facility] LEUKOCYTES (U) NEGATIVE NEGATIVE 02/04/2018 6:15 PM CDT [facility] NITRITES NEGATIVE NEGATIVE 02/04/2018 6:15 PM CDT [facility] PROTEIN (U) NEGATIVE NEGATIVE 02/04/2018 6:15 PM CDT [facility] URINE GLUCOSE 3+(A) NEGATIVE 02/04/2018 6:15 PM CDT [facility] KETONES MG/DL (U) NEGATIVE NEGATIVE 02/04/2018 6:15 PM CDT [facility] UROBILINOGEN 2.0(H) <1.0 EU/DL 02/04/2018 6:15 PM CDT [facility] BILIRUBIN (U) NEGATIVE NEGATIVE 02/04/2018 6:15 PM CDT [facility] BLOOD (U) NEGATIVE NEGATIVE 02/04/2018 6:15 PM CDT [facility] WBC/HPF 0-5 0 - 5 /HPF 02/04/2018 6:15 PM CDT [facility] EPI/HPF RARE /LPF 02/04/2018 6:15 PM CDT [facility] CULTURE & SENSITIVITY INDICATED? NOT INDICATED 02/04/2018 6:15 PM CDT [facility] OTHER (type in comments) 02/04/2018 6:01 PM CDT 02/04/2018 6:08 PM CDT Comment:URINE SPECIMEN~URINE SPECIMEN us Generic Conversion Md RED URINE ORDERABLES Final Result [facility] [address] [place] [address], documented in this encounter Visit Diagnoses Diagnosis Type 2 diabetes mellitus with hyperglycemia (CMS/HCC HHS/HCC) Type II or unspecified type diabetes mellitus without mention of complication, not stated as uncontrolled documented in this encounter
--- OUTSIDE RECORDS SUMMARY | 2024-04-19 22:43 | XMS_ITS | Encounter Summary ---
Author Organization [facility] Address [address] [place] [address] Care Team Providers Care Industrial Health And Safety Professor Name Role Phone Braydon Pavon Primary Care Provider [phone] Reason for Visit * Reason Comments Appointment Encounter Details Date Type Department Care Team (Late Contact Info) Description 05/19/2018 Telephone [facility] - [address] [facility], [facility] [place] [phone] Braydon Pavon PA [address] [place] [phone] Appointment Social History Tobacco Use Types Packs/Day Years Used Date Smoking Tobacco: Never Assessed Sex and Gender Information Value Date Recorded Sex Assigned at Not on file Gender Identity Not on file Sexual Orientation Not on file documented as of this encounter Progress Notes * Kassie Fuentes - 05/19/2018 1:28 PM CST PT TO CALL FOR APPT W/ [facility]. RECORDS SCANNED COURT TEAM MEMBER documented in this encounter Plan of Treatment Upcoming Encounters Date Type Department Care Team (Late Contact Info) Description 02/17/2024 11:59 PM CDT Anesthesia Event [facility] [address] [place] [phone] Pushpa Frey, DO [address] [facility] [address] [address] 05/20/2024 12:[address] TEAM MEMBER Appointment [facility] [address] [place] [phone] Steve Bedolla MD [facility] [place] [phone] 06/30/2024 10:[address] TEAM MEMBER Office Visit [facility] [place] [address] [facility], [place] [phone] Steve Bedolla MD [address] [place] [phone] documented as of this encounter Visit Diagnoses Not on filedocumented in this encounter Care Teams Industrial Health And Safety Professor Relationship Specialty Start Date End Date Braydon Pavon PA [address] [place] [address] PCP - General Physician Wildlife Conservationist 05/19/18 10/03/18 documented as of this encounter
--- OUTSIDE RECORDS SUMMARY | 2024-04-19 22:43 | XMS_ITS | Encounter Summary ---
Author Organization [facility] Address [address] [place] [address]. [place] [address] [place] [address] Care Team Providers Care Broadband Installer Name Role Phone Braydon Pavon Primary Care Provider [phone] Reason for Visit * Reason Onset Date Comments Called To Cancel Office Appt. 07/05/2019 Encounter Details Date Type Department Care Team (Late st Contact Info) Description 07/05/2019 Telephone [facility] Medical Group Diabetes and Endocrinology - [address] [phone] Eva Power MD [facility] [place] [address] Called To Cancel Office Appt. Social History Tobacco Use Types Packs/Day Years [...] PM CDT documented as of this encounter Progress Notes * Kathe Chapin - 07/05/2019 12:18 PM CST Noted IC ACID PLANT OPERATOR * Chantelle Espinoza MA - 07/05/2019 11:54 AM CST FYI IC ACID PLANT OPERATOR * Cameron Calderon - 07/05/2019 11:52 AM CST Patient cancelled appointment for today, declined to reschedule. IC ACID PLANT OPERATOR documented in this encounter Plan of Treatment Upcoming Encounters Date Type Department Care Team (Late st Contact Info) Description 05/10/2024 11:40 AM NITRIC ACID PLANT OPERATOR Office Visit [facility] Medical Group Diabetes and Endocrinology - [address] [phone] Eva Power MD [address] [place] [address] documented as of this encounter Visit Diagnoses Not on filedocumented in this encounter Care Teams Broadband Installer Relationship Specialty Start Date End Date Braydon Pavon PA [address] [place] [address] PCP - General PHYSICIAN WINE PASTEURIZER 03/02/19 documented as of this encounter
--- OUTSIDE RECORDS SUMMARY | 2024-04-19 22:43 | XMS_ITS | Encounter Summary ---
Author Organization [facility] Address [address] [place] [address]. [place] [address] [place] [address] Care Team Providers Care Senior Mechanical Project Engineer Name Role Phone None, Provider Primary Care Provider Braydon Piedra Primary Care Provider [phone] Encounter Details Date Type Department Care Team (Late Contact Info) Description 10/09/2018 Abstract [facility] CONVERSION [address] [address] , Generic Conversion, Social History Tobacco Use Types Packs/Day Years [...] (Late Contact Info) Description 05/10/2024 11:40 AM INSTRUMENTATION CHEMIST Office Visit [facility] Medical Group Diabetes and Endocrinology - [address] [phone] Eva Power MD [address] [place] [address] [place] [address] documented as of this encounter Visit Diagnoses Not on filedocumented in this encounter Care Teams Senior Mechanical Project Engineer Relationship Specialty Start Date End Date None, Provider, PCP - General 02/08/19 03/01/19 Braydon Pavon PA [address] [place] [address] PCP - General PHYSICIAN NUMERICAL CONTROL OPERATOR 03/02/19 documented as of this encounter
--- OUTSIDE RECORDS SUMMARY | 2024-04-19 22:43 | XMS_ITS | Encounter Summary ---
Author Organization [facility] Address [address] [place] [address]. [place] [address] [place] [address] Care Team Providers Care Payroll Administrative Assistant Name Role Phone Braydon Pavon Primary Care Provider [phone] Encounter Details Date Type Department Care Team (Latest Contact Info) Description 02/15/2024 Travel Social History Tobacco Use Types Packs/Day Years Used Date Smoking Tobacco: Former Cigarettes Q uit: 1999 Smokeless Tobacco: Never Alcohol Use Standard Drinks/Week Comments No 0 (1 standard drink = 0.6 oz pur e alcohol) AUDIT-C Answer Date Recorded Frequency of Alcohol Consumption Never 02/08/2019 Average Number of Drinks Not on file 019 Frequency of Binge Drinking Not on file 12/2018 PHQ-2 Answer Date Recorded Patient Health Questionnaire-2 [...] st Contact Info) Description 05/10/2024 11:40 AM RUBBER MOLD MAKER Office Visit [facility] Medical Group Diabetes and Endocrinology - [address] [place] [address] Eva Power MD [address] [place] [address] documented as of this encounter Visit Diagnoses Not on filedocumented in this encounter Care Teams Payroll Administrative Assistant Relationship Specialty Start Date End Date Braydon Pavon PA [address] [place] [address] PCP - General PHYSICIAN LOGGING EQUIPMENT OPERATOR 03/02/19 documented as of this encounter
--- OUTSIDE RECORDS SUMMARY | 2024-04-19 22:43 | XMS_ITS | Encounter Summary ---
Author Organization [facility] Address [address] [place] [address]. [place] [address] [place] [address] Care Team Providers Care Bag Cutter Name Role Phone Braydon Pavon Primary Care Provider Encounter Details Date Type Department Care Team (Late Contact Info) Description 12/23/2019 Transcribe Orders [facility] Pre Access Team [address] [place] [address] Braydon Pavon PA [address] [place] [address] Social History Tobacco Use Types Packs/Day Years [...] (Late Contact Info) Description 05/10/2024 11:40 AM MUSIC LIBRARIAN Office Visit [facility] Medical Group Diabetes and Endocrinology - [address] [phone] Eva Power MD [address] [place] [address] documented as of this encounter Visit Diagnoses Diagnosis Obstructive sleep apnea (adult) (pediatric)- Primary documented in this encounter Care Teams Bag Cutter Relationship Specialty Start Date End Date Braydon Pavon PA [address] [place] [address] PCP - General PHYSICIAN POSSUM TRAPPER 03/02/19 documented as of this encounter
--- OUTSIDE RECORDS SUMMARY | 2024-04-19 22:43 | XMS_ITS | Encounter Summary ---
Author Organization [facility] Address [address] [place] [address]. [place] [address] [place] [address] Care Team Providers Care Agricultural Science Professor Name Role Phone Braydon Pavon Primary Care Provider [phone] Reason for Visit * Reason Onset Date Comments Callback 02/19/2024 Medication Problem 02/19/2024 Encounter Details Date Type Department Care Team (Late st Contact Info) Description 02/19/2024 Telephone [facility] Medical Group Diabetes and Endocrinology - [place] [address] [place] [phone] Paul Chanel MD [address] [place] [address] Callback; Medication Problem Social History Tobacco Use Types Packs/Day Years [...] as of this encounter Progress Notes * Chantelle Espinoza MA - 02/19/2024 3:41 PM CDT Patient has been informed of below results and instructions. Voiced understanding. Patient is going to come pickling drum operator sample mannequin sander and finisher in the next week. * Paul Chanel MD - 02/19/2024 3:24 PM CDTAddended by: PAUL CHANEL on: 02/19/2024 03:24 PM Modules accepted: Orders * Paul Chanel MD - 02/19/2024 3:20 PM CDT Can increase insulin up to 200 units 3 times a day. * Chantelle Espinoza MA - 02/19/2024 10:58 AM CDT U-500 R 200 units in the morning and 8 pm. Dexcom Report in folder for your review. Thanks. * Alissa Garcia - 02/19/2024 10:16 AM CDT Caller name: Camilo Curry Mane Facility name: Call back/ext. #: [phone] Call details: Patient cannot take metformin it is messing with his stomach. And he does not believes that his insulin is not a high enough dose. Needing to speak with a nurse to make sure his math is correct Dexcom G7 mannequin sander and finisher is not working and he is requesting a new one. documented in this encounter Plan of Treatment Upcoming Encounters Date Type Department Care Team (Late st Contact Info) Description 05/10/2024 11:40 AM HOSPICE SPIRITUAL CARE COORDINATOR Office Visit [facility] Medical Group Diabetes and Endocrinology - [address] [phone] Paul Chanel MD [address] [place] [address] documented as of this encounter Visit Diagnoses Diagnosis Type 2 diabetes mellitus with hyperglycemia, with long-term current use of insulin ([facility]) documented in this encounter Care Teams Agricultural Science Professor Relationship Specialty Start Date End Date Braydon Pavon PA [address] [place] [address] PCP - General PHYSICIAN ROUNDHOUSE FIRER/FIREMAN 03/02/19 documented as of this encounter
--- OUTSIDE RECORDS SUMMARY | 2024-04-19 22:43 | XMS_ITS | Encounter Summary ---
Author Organization [facility] Address [address] [place] [address]. [place] [address] [place] [address] Care Team Providers Care Asp Web Developer Name Role Phone Braydon Pavon Primary Care Provider [phone] Encounter Details Date Type Department Care Team (Late Contact Info) Description 05/11/2019 Orders Only [facility] [address] [address] Lacy Hurtado CNA Social History Tobacco Use Types Packs/Day Years Used Date Smoking Tobacco: Every Day Smokeless Tobacco: Never Alcohol Use Standard Drinks/Week [...] (Late Contact Info) Description 05/10/2024 11:40 AM VOICE AND DATA TECHNICIAN Office Visit [facility] Medical Group Diabetes and Endocrinology - [address] [phone] Eva Power MD [address] [place] [address] documented as of this encounter Visit Diagnoses Diagnosis Pain- Primary Generalized pain documented in this encounter Care Teams Asp Web Developer Relationship Specialty Start Date End Date Braydon Pavon PA [address] [place] [address] PCP - General PHYSICIAN JEWELRY CASTING MODEL MAKER 03/02/19 documented as of this encounter
--- OUTSIDE RECORDS SUMMARY | 2024-04-19 22:43 | XMS_ITS | Encounter Summary ---
Author Organization [facility] Address [address] [place] [address]. [place] [address] [place] [address] Care Team Providers Care Chalk Cutter Name Role Phone Braydon Pavon Primary Care Provider [phone] Encounter Details Date Type Department Care Team (Latest Contact Info) Description 03/19/2021 Travel Social History Tobacco Use Types Packs/Day [...] Orientation Straight 03/02/2019 9: 44 PM CDT COVID-19 Exposure Response Date Recorded In the last month, have you been in contact with someone who was confirmed or suspected to have Coronavirus / COVID-19? No / Unsure 03/19/2021 6:15 AM FOREST ENGINEER documented as of this encounter Plan of Treatment Upcoming Encounters Date Type Department Care Team (Late st Contact Info) Description 05/10/2024 11:40 AM FOREST ENGINEER Office Visit [facility] Medical Group Diabetes and Endocrinology - [address] [phone] Eva Power MD [address] [place] [address] documented as of this encounter Visit Diagnoses Not on filedocumented in this encounter Care Teams Chalk Cutter Relationship Specialty Start Date End Date Braydon Pavon PA [address] [place] [address] PCP - General PHYSICIAN POWDER MIXER 03/02/19 documented as of this encounter
--- OUTSIDE RECORDS SUMMARY | 2024-04-19 22:43 | XMS_ITS | Encounter Summary ---
Author Organization [facility] Address [address] [place] [address]. [place], [place] [id number] [place] [id number] Care Team Providers Care Industrial Relations Worker Name Role Phone Unavailable Primary Care Provider Unavailabl e Encounter Details Date Type Department Care Team (Latest Contact Info) Description 11/12/2017 Abstract [facility] Medical Group Social History Tobacco Use Types Packs/Day Years Used Date Smoking Tobacco: Never Assessed Sex and Gender Information Value Date Recorded Sex Assigned at Not on file Legal Sex Male 9:36 PM CDT Gender Identity Not on file Sexual Orientation Straight 03/02/2019 9: 44 PM CDT documented as of this encounter Progress Notes * Generic Conversion MD Franco - 11/12/2017 9:53 AM CDT Message Recorded as Task Date: 11/11/2017 03:54 PM, Created By: Marry Holm Task Name: Informational Assigned To: Marry Holm Regarding Patient: Camilo Curry, Status: Active Comment: Marry Holm - 11 Nov 2017 3:54 PM TASK CREATED I got a threatening phone call from this patient yesterday and again today. He is irate because he wants us to order 6 test strips per day for him. His last note from Dr. Power in 2017 says he is to test 3 times daily. He insists that he has been testing 6 times per day, however we have not seen him in clinic nor has he turned in BS readings. Public Aide will pay for testing 3 times per day if on insulin. I did prior auth for 4 times per day and that order was sent to pharmacy for 120 strips per month. When he called yesterday he demanded that I change quantity on order to 200 per month because he said he was told by PA that he was allowed 200 strips per month. I did send a new order with quantity of 200 to pharmacy. Today he called and screamed at me again and threatened to report me to the medical review board because I would not change his order to test 6 times a day. I have very patiently tried to explain to him that regardless of what is ordered, public aide will not pay for thatmany strips and Dr. Power's last note says he is to test 3 times daily. Camilo continued to scream atme on the phone until he finally hung up on me. When I got off the phone I called the pharmacy and talked to pharmacist and he got order for testing 4 times per day with quantity of 120 per month. Susu got order I sent yesterday to test 4 times per day but put quantity of 200. Pharmacist said they will not provide him 200 strips because they only get reimbursed from public aide for 100 strips for 28 days. Pharmacist said Camilo has no copay for strips. He also said that Camilo is always extremely difficult to deal with and he creates a scene when he is in the pharmacy. I am not sure of anything else I can do for Camilo. Wanted to make you aware of this situation. Alyse Cote - 11 Nov 2017 6:43 PM TASK REPLIED TO: Previously Assigned To Alyse Cote, Thank you for doing your best to assist this patient. From what I have read from your note, you have done everything you can do for this patient and beyond. Understanding that he hasn't been seen timely, we shouldn't even be renewing his test strips. That aside, if he calls again, please do not take his call. You do not deserve that verbal abuse from the patient. If the PSR calls you and informs you he is on the phone, ask the PSR to take a message and inform patient we will return his call. Then inform me, I will call patient. If he continues to exhibit this behavior, with Dr. Power's permission, we will have to dismiss him from the practice. I will be out of the office tomorrow at an [facility] meeting, Leadership and PM meeting. If patient calls, ask the PSR to inform him I will call on Thursday. Thank you, Marry Barlow - 12 Nov 2017 9:53 AM TASK EDITED Noted. Informed PSR's to give his calls to practice consultant, not to nursing staff. Signatures Electronically signed by : Marry Holm R.N.; Nov 12 2017 9:54AM SAMPLE TAKER OPERATOR (Author) documented in this encounter Plan of Treatment Upcoming Encounters Date Type Department Care Team (Late st Contact Info) Description 05/10/2024 11:40 AM SAMPLE TAKER OPERATOR Office Visit [facility] Medical Group Diabetes and Endocrinology - [address] [phone] Eva Power MD [address] [place] [phone] documented as of this encounter Visit Diagnoses Not on filedocumented in this encounter
--- OUTSIDE RECORDS SUMMARY | 2024-04-19 22:43 | XMS_ITS | Encounter Summary ---
Author Organization [facility] Address [address] [place] [address]. [place] [address] [place] [address] Care Team Providers Care Supervisor Ticket Sales Name Role Phone Unavailable Primary Care Provider Unavailabl e Encounter Details Date Type Department Care Team (Latest Contact Info) Description 11/19/2017 Abstract [facility] Medical Group Social History Tobacco [...] st Contact Info) Description 05/10/2024 11:40 AM MIXER WHIPPED TOPPING Office Visit [facility] Medical Group Diabetes and Endocrinology - [address] [phone] Eva Power MD [address] [place] [phone] documented as of this encounter Visit Diagnoses Not on filedocumented in this encounter
--- OUTSIDE RECORDS SUMMARY | 2024-04-19 22:43 | XMS_ITS | Encounter Summary ---
Author Organization [facility] Address [address] [place] [address]. [place] [address] [place] [address] Care Team Providers Care Molten Iron Pourer Name Role Phone Unavailable Primary Care Provider Unavailabl e Encounter Details Date Type Department Care Team (Late st Contact Info) Description 12/09/2016 Abstract [facility] Medical Group Diabetes and Endocrinology - [address] [phone] Eva Power MD [address] [place] [address] [phone] Social History Tobacco Use Types Packs/Day Years Used Date Smoking Tobacco: Never Assessed Sex and Gender Information Value Date Recorded Sex Assigned at Not on file Legal Sex Male 9:36 PM CDT Gender Identity Not on file Sexual Orientation Straight 03/02/2019 9: 44 PM CDT documented as of this encounter Progress Notes * Ganesh Collins, JONATHAN - 12/09/2016 10:40 AM CDT Reason For Visit Consultation Visit -Referral from Dr. Power for medical nutrition therapy for diabetes. Active Problems 1. Esophageal varices (456.1) (I85.00) 2. Hepatic encephalopathy (572.2) (K72.90) 3. Left knee pain (719.46) (M25.562) 4. 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 Lumbar radiculopathy (724.4) (M54.16) 6. Lumbar spinal stenosis (724.02) (M48.06) 7. Morbid obesity with BMI of 40.0-44.9, adult (278.01,V85.41) (E66.01,Z68.41) 8. TRACY (obstructive sleep apnea) (327.23) (G47.33) 9. Right knee pain (719.46) (M25.561) 10. Spinal stenosis (724.00) (M48.00) 11. Thrombocytopenia (287.5) (D69.6) 12. Uncontrolled type 2 diabetes mellitus with insulin [...] No alcohol use ?? No alcohol use Diet: He does not have a healthy diet. He is on a diabetic diet but does not adhere to the diet. Diet problems: insufficient in fruit, insufficient in vegetables and low in fiber. Weight Issues: He has weight concerns. Weight control issues: obesity. Exercise: He does not exercise regularly. Current Meds 1. ALPRAZolam 0.5 MG Oral [...] breakfast and lunch, and 100 untis before supper; Therapy: 09Oct2016 to (Last Rx:09Dec2016) Requested for: 09Dec2016 Ordered Rx By: Eva Power; Dispense: 0 Days ; #:4 X 3 ML Pen (2 Pens); Refill: 11; For: Uncontrolled type 2 diabetes mellitus with insulin therapy; KATLYN = N; Verified Transmission to [facility]; Last Updated By: Meka Phillips; 12/09/2016 12:11:18 [...] HCl - 500 MG Oral Tablet; Therapy: (Recorded:[id number]) to Recorded Dispense: 0 Days ; #: Sufficient TABS; Refill: 0; KATLYN = N; Record; Last Updated By: Judy Ledesma;01/03/2015 11:58:23 PM 7. Omeprazole 20 MG Oral Capsule Delayed Release; TAKE 1 CAPSULE DAILY EVERY MORNING BEFORE BREAKFAST; Therapy: [id number] to Recorded Rx By: Eva Power; Dispense: 0 Days ; #: Sufficient Capsule Delayed Release; Refill: 0; KATLYN = N;Record 8. HemoShearuch Ultra Blue In Vitro Strip; TESTING 6 TIMES DAILY; Therapy: [id number] to (Evaluate:[id number]) Requested for: 11Mcl5390; Last Rx:[id number] Ordered Rx By: Eva Power; Dispense: 0 Days ; #:2 X 100 Strip Box; Refill: 11; For: Uncontrolled type 2 diabetes mellitus with insulin therapy; KATLYN = N; Verified Transmission to [facility]; Last Updated By: Pay-Me; 12/09/2016 12:11:17 PM 9. [employer] (Mi[employer]) Mini w/Device Kit; USE DIRECTED; Therapy: [id number] to (Last Rx:[id number]) Requested for: [id number] Ordered Rx By: Eva Power; Dispense: 0 Days ; #:1 Kit; Refill: 0; For: Uncontrolled type 2 diabetes mellitus with insulin therapy; KATLYN = N; Verified Transmission to [facility]; Last Updated By: Pay-Me; 12/09/2016 12:11:19 PM 10. Xanax TABS; Therapy: (Recorded:[id number]) to Recorded Dispense: 0 Days ; #: Sufficient TABS; Refill: 0; KATLYN = N; Record; Last Updated By: Judy Ledesma;01/03/2015 11:58:23 PM 11. Xifaxan 550 MG Oral Tablet; Therapy: [id number] to Recorded Rx By: Eva Power; Dispense: [...] 09/09/2016 10:27:05 PM 8. nisoldipine Recorded By: Judy Ledesma; 01/03/2015 11:58:23 PM 9. octreotide Recorded By: Eva Power; 09/09/2016 10:27:51 PM 10. Penicillins Recorded By: Eva Power; 09/09/2016 10:27:05 PM 11. Penicillins Recorded By: Judy Ledesma; 01/03/2015 11:58:23 PM 12. sulfa Recorded By: Judy Ledesma; 01/03/2015 11:58:23 PM 13. Sulfa Drugs Recorded By: Eva Power; 09/09/2016 10:27:05 PM Results/Data *Glucose, Whole Blood In Office [id number] 11:47AM Eva Power Test Name Result Flag Reference Glucose Finger Stick 242 mg/dl 70 - 110 mg/dl *A1C In Office [id number] 11:46AM Eva Power Test Name Result Flag Reference A1C 6.9 4.2 - 6.5 % HbA1C Nutrition Assessment Pt seen referred by DR. Power for medical nutrition therapy for diabetes. Pt here today with her significant other. Pt states he and significant other have been working to improve diet to help continue to lower A1c. Pt states he does not cook often and denies any physical activity at this time. He will be starting water therapy 3 times a week for his back, here in the next few weeks. He has hx ofcirrhosis, but has not seen a specialist for this. Pt typically has 3 meals daily. Vitals: Patient has a current weight of 268 pounds and his current body mass index is 40.75. Insulin: U-500 Current Diet Diabetic Beverage Consumption: Daily Beverage Consumption is Diet soda, water and does not use alcohol. 24 Hour Food Recall Breakfast- eggs, zeng, cheese and a biscuit, toast with sausage or sausage andgravy. Lunch- cup of noodle soup hamburgers with tator tots. Supper- baked chicken, spaghetti, taco's, pork chops, pork steaks, tossed salad, breaded chicken. Snacks- granola bar or sugar free candy. Physical Activity ~ is not physically active Additional Information: Nutrition Diagnosis 1. Uncontrolled type 2 diabetes mellitus with insulin therapy (250.02,V58.67) (E11.65,Z79.4) Food- and nutrition-related knowledge deficit (NB-1.1) PES Statement:Food and nutrition knowledge deficit related to lack of prior sufficient education asevidenced by pt expressing confusion over appropriate diet for health related condition and goals. PES Statement: Nutrition Intervention Provided and discussed Ready, Set, Start Counting from the [facility] group and Planning Healthy Mealsfrom [employer]. Reviewed CHO containing foods, serving sizes, and how to read a nutrition label for total CHO and serving size. Emphasized the importance of portion control and encouraged pt to weigh / measure foods in order to ensure appropriate intake within CHO per meal / snack goals. Reviewed the balanced plate and discussed the benefit of fiber and protein to aid in satiety, wt. management, and prolonged BG control. Examples of good sources of fiber and protein provided and encouraged pt to incorporate some of these sources into each meal / snack. Encouraged small frequent meals throug hout the day and discussed adequate protein intake. Encouraged pt to limit Na intake and provided examples of ways to limit amount of Na consumed. Nutrition Prescription Reduce energy intake 1600 calories Weight loss 1-2 lbs per week Monitoring carbohydrate intake 45-50 g CHO per meal Other: CHO modified diet Goal Setting Discussion: Eating plan, energy balance and obesity goals, spacing of meals and physical activity and exercise goals. Food / Meal Planning Approaches: Carbohydrate Servings for Meal/Snack Meal / snack should be kept consistent on a day to day basis. Fiber intake (14 g / 1000 kcals). Reduce Saturates and Trans fatty acids. Strength / resistance training 3 times per week. Food Label Tips Given: Serving size, serving size per container, calories, total carbohydrates, sugars, fiber, percent daily value, total grams of CHO, sugar alcohols, foods with 3 g fat or less for every 15 g CHO, food label is based on a 2,000 kcal diet, food ingredients Physical Activity / Exercise: Improves insulin sensitivity, Reduces CVO risks, Helps control weightand Reduces stress and tension Monitoring/Evaluation Goals: 1600 calories per day. 45-50 g CHO per meal Nutrient intake: pt will increase fiber intake through whole grains, fruits and vegetables Weight: pt will lose 1-2 lbs per week A1c: maintain A1c <7% Physical activity: pt will increase physical activity by 10 minutes daily. Motor Vehicle Assembler Monitoring Evaluation: Food and Blood Glucose Monitoring Records Specific Behavior Changes per Intervention Plan Physical Activity Patterns Weight Laborotory Data Counseling Pt verbalized understanding of information discussed. RD contact provided and pt was encouraged to call with any questions or concerns he may have. Thank you for consult. Time spent counselin minutes. Signatures Electronically signed by : Ganesh Collins RD; Dec 10 2016 11:54AM CYLINDER HEAD ASSEMBLER (Author) documented in this encounter Plan of Treatment Upcoming Encounters Date Type Department Care Team (Late st Contact Info) Description 05/10/2024 11:40 AM CYLINDER HEAD ASSEMBLER Office Visit [facility] Medical Group Diabetes and Endocrinology - [address] [phone] Eva Power MD [address] [place] [phone] documented as of this encounter Visit Diagnoses Not on filedocumented in this encounter
--- OUTSIDE RECORDS SUMMARY | 2024-04-19 22:43 | XMS_ITS | Encounter Summary ---
Author Organization [facility] Address [address] [place] [address]. [place], [place] [id number] [place] [address] Care Team Providers Care Career Resource Specialist Name Role Phone None, Provider Primary Care Provider Unavaila ble Reason for Visit * Reason Comments Dental Problem Encounter Details Date Type Department Care Team (Late st Contact Info) Description 02/08/2019 8:30 PM CDT - 02/08/2019 10:06 PM CDT Emergency [facility] [address] [place] [address] [place] [address] Dental Problem Discharge Disposition: Left Against Medical Advice Social History Tobacco Use Types Packs/Day Years [...] Sign Reading Time Taken Comments Blood Pressure 161/90 02/08/2019 9:06 PM CDT Pulse 90 02/08/2019 9:06 PM CDT Temperature 36.6 ??C (97.8 ??F) 02/08/2019 9:06 PM CD T Respiratory Rate 18 02/08/2019 9:06 PM CDT Oxygen Saturation 98% 02/08/2019 9:06 PM CDT Inhaled Oxygen Concentration - - Weight 122.5 kg (270 lb) 02/08/2019 9:06 PM CDT Height 172.7 cm (5' 8 ) 02/08/2019 9:06 PM CDT Body Mass Index 41.05 02/08/2019 9:06 PM CDT documented in this encounter Medications at Time of Discharge lactulose 20 GM/30ML solution Take 30 mLs by mouth 4 (four) times daily. rifaximin 200 MG tablet Take 550 mg by mouth 2 (two) times daily. ALPRAZolam (XANAX) 0.5 MG tablet Take 0.5 mg by mouth nightly as needed. 02/15/2024 hydrochlorothiazi de 25 MG tablet Take 25 mg by mouth daily. 02/15/2024 INSULIN REGULAR IJ 150 Units. 04/05/2019 insulin regular, CONCENTRATED, (HUMULIN R U-500 KWIKPEN) 500 UNIT/ML injection 10/09/2016 019 metFORMIN 1000 MG tablet Take 1,000 mg by mouth. 04/05/2019 omeprazole 20 MG capsule Take 1 capsule by mouth. 09/14/2016 02/15/2024 documented as of this encounter ED Notes * Paty Griffin RN - 02/08/2019 9:07 PM CDT PT ARRIVES PER POV. PT C/O TOOTHACHE X ONE MONTH. PT STATES HAS APPOINTMENT TO GET TOOTH PULLED ON Thursday. documented in this encounter Plan of Treatment Upcoming Encounters Date Type Department Care Team (Late st Contact Info) Description 05/10/2024 11:40 AM PALLETISER OPERATOR Office Visit [facility] Medical Group Diabetes and Endocrinology - [address] [phone] Eva Power MD [address] [place] [phone] documented as of this encounter Visit Diagnoses Not on filedocumented in this encounter Care Teams Career Resource Specialist Relationship Specialty Start Date End Date None, Provider, PCP - General 02/08/19 03/01/19 documented as of this encounter
--- OUTSIDE RECORDS SUMMARY | 2024-04-19 22:43 | XMS_ITS | Encounter Summary ---
Author Organization [facility] Address [facility] [place] [address] [place] [address] Care Team Providers Care Continuous Dryout Operator Name Role Phone Braydon Pavon Primary Care Provider [phone] Reason for Visit * Reason Comments Consult spinal stenosis- has not had imaging done in the last year * Consultation (Routine) - Closed Specialty Diagnoses / Procedures Referred By Jordan casillas Referred To Contact NEUROSURGERY Diagnoses Spinal stenosis spinal stenosis Procedures PITCH FLAKER consultation Braydon Pavon PA [address] [place] [address] Phone: tel: fax: Bola Feldman MD Phone: tel: fax: Referral ID Status Reason Start Date Expiration Date V isits Requested Visits Authorized [id number] Closed Consultation 05/10/2019 05/10/2020 1 1 Encounter Details Date Type Department Care Team (Latest Contact Info) Description 05/23/2019 10:40 AM BIBLE WORKER Office Visit [facility] - [address] [phone] Bola Feldman MD [facility] [address] [address] Consult (spinal stenosis- has not had imaging done in the last year) Social History Tobacco Use Types Packs/Day Years [...] Sign Reading Time Taken Comments Blood Pressure 145/85 05/23/2019 10:48 AM BIBLE WORKER Pulse 113 05/23/2019 10:48 AM BIBLE WORKER Temperature - - Respiratory Rate - - Oxygen Saturation 97% 05/23/2019 10:48 AM BIBLE WORKER Inhaled Oxygen Concentration - - Weight 122 kg (269 lb) 05/23/2019 10:48 AM BIBLE WORKER Height 172.7 cm (5' 8 ) 05/23/2019 10:48 AM BIBLE WORKER Body Mass Index 40.9 05/23/2019 10:48 AM BIBLE WORKER documented in this encounter Progress Notes * Ying Jc RN - 05/23/2019 10:40 AM CSTAddended by: YING JC on: 05/24/2019 02:55 PM Modules accepted: Orders E WORKER * Bola Feldman MD - 05/23/2019 10:40 AM CST Images from the original note were not included. 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 He does not have any current imaging. Since his initial diagnosis he has been diagnosed with liver cirrhosis requiring TI PS and cannot have a regular MRI but requires a special type of MRI that would not interfere with his TI PS but I am not certain what that is. He also has insurance that has not allow him to see a liver specialist or have pain management give him an injection. He is attempting to change his insurance to one that will allow this at the end of this month. After that he will be able to have an MRI from [facility] in [place] which can come dated. He will also be able to follow-up with his furniture painter for possible injections. Recommendations: We will order CT L-spine We will follow-up after the patient has had his MRI imaging Subjective: HPI: Thank you for referring this 48-year-old male with a very complicated history. The patient complains of back pain for many years. The pain is mainly in the lower back but will radiate upwards and also down the legs to his knees occasionally. Pain is worsened by walking. He has had previous imaging in 2010 which demonstrated an issue at L4-5 and was ready have surgery but the insurance that he hadwould not allow it. Unfortunately since that time he is developed nonalcoholic liver cirrhosis requiring a TI PS procedure. Therefore now he is at high risk for any kind of surgery. For the last 2 years unfortunately the patient has not had his liver checked due to insurance issues. He originally had his liver issues treated at [facility] in [place] but they no longer take his insurance and will not see him. He has no recent imaging and he cannot have an MRI without sedation and a special type to accommodate his liver procedure. He is tried physical therapy as recently as 3 weeks ago with aqua therapy and he felt the therapy makes the pain worse. He was set up to have injections with pa in farm management adviser but his insurance changed and patient is no longer would allow him to haveit without further physical therapy. He is in the process of changing back to his old insurance at the end of the month. Past Medical History: Diagnosis Date ??? History of upper gastrointestinal hemorrhage 09/10/2015 ??? HTN (hypertension) ??? 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 Type 2 diabetes mellitus with hyperglycemia, with long-term current use of insulin (CMS/HCC) Past Surgical History: Procedure Laterality Date ??? COLONOSCOPY ??? HC TIPS REVISION Current Outpatient Medications Medication Sig Dispense Refill ??? acetaminophen-codeine 300-30 MG tablet Take 1 tablet by mouth every 4 (four) hours as needed for Pain. ??? ALPRAZolam (XANAX) 0.5 MG tablet Take 0.5 mg by mouth nightly as needed. ??? BD INSULIN SYRINGE U-500 31G X 6MM 0.5 ML Misc ??? HUMULIN R 500 UNIT/ML Solution Inject 200 Units into the skin 3 (three) times daily with meals.Indications: 160 units TID before meals 2 vial 11 ??? hydrochlorothiazide 25 MG tablet Take 25 mg by mouth daily. ??? lactulose 20 GM/30ML solution Take 30 mLs by mouth 4 (four) times daily. ??? metFORMIN ER, MOD, 500 MG TABLET SR 24 HR 24 hr tablet Take 2 tablets by mouth nightly. ??? omeprazole 20 MG capsule Take 1 capsule by mouth. ??? ondansetron 4 MG tablet ??? rifaximin 200 MG tablet Take 550 mg by mouth 2 (two) times daily. ??? TRUE METRIX BLOOD GLUCOSE TEST test strip ??? VENTOLIN HFA 108 (90 Base) MCG/ACT inhaler ??? vitamin D2, ergocalciferol, 20026 UNITS capsule Take 50,000 Units by mouth every 30 (thirty) days. No current facility-administered medications for this visit. (Not in a hospital admission) Allergies Allergen Reactions ??? Azithromycin Unknown ??? Aztreonam Unknown ??? Ciprofloxacin Unknown ??? Contrast [Iodine] Swelling ??? Duloxetine Hcl Unknown ??? Erythromycin Unknown ??? Esomeprazole Unknown ??? Nisoldipine Unknown ??? Octreotide Unknown ??? Penicillins Unknown ??? Sulfa Antibiotics Unknown Social History Tobacco Use ??? Smoking status: Former Smoker Last attempt to quit: 2000 Years since quittin.0 ??? Smokeless tobacco: Never Used Substance Use Topics ??? Alcohol use: No Frequency: Never Family History Problem Relation Name Age of Onset ??? Cancer Mother ??? Cancer Father ??? Diabetes Sister Review of Systems: A comprehensive review of systems was negative. As noted in HPI. Objective: Physical Exam: Filed Vitals: 05/23/19 1048 BP: (!) 145/85 Pulse: 113 SpO2: 97% Weight: 122 kg (269 lb) Height: 5' 8 (1.727 m) alert, appears stated age and cooperative Head: Normocephalic, without obvious abnormality, atraumatic Eyes: negative Ears: normal bilateral TM's and external ear canals Nares normal. Septum midline. Mucosa normal. No drainage or sinus tenderness. lips, mucosa, and tongue normal; teeth and gums normal Neck: supple, symmetrical, trachea midline and thyroid not enlarged, symmetric, no tenderness/mass/nodules Back: negative Lung: clear to auscultation bilaterally Chest Wall: no tenderness Heart: regular rate and rhythm Abdomen: soft and protuberant Extremities: extremities, peripheral pulses normal Neuro: Awake Alert Oriented X 3 CHANG Retina not visualized CrN III-XII grossly normal Strength and tone normal u/e and l/e Sensation normal to LT Reflexes absent bilaterally, no Tamez's noted Gait stable Weight: Wt Readings from Last 1 Encounters: 05/23/19 122 kg (269 lb) Data Review: No visits with results within 30 Day(s) from this visit. Latest known visit with results is: Office Visit on 04/05/2019 Component Date Value Ref Range Status ??? WHOLE BLOOD GLUCOSE 04/05/2019 260* 70 - 100 mg/dL Final ??? HGB A1C 04/05/2019 10.9 Final Imaging was personally reviewed. Patient has no recent imaging. By: Bola Feldman MD, MSc, FRSC(C) Attending Provider: Bola Feldman MD Primary Care Physician: SOANLI CURRIE E WORKER E WORKER documented in this encounter Plan of Treatment Upcoming Encounters Date Type Department Care Team (Late st Contact Info) Description 05/10/2024 11:40 AM BIBLE WORKER Office Visit [facility] Diabetes and Endocrinology - [address] [address] Eva Power MD [address] [place] [address] documented as of this encounter Visit Diagnoses Diagnosis Lumbar degenerative disc disease- Primary Degeneration of lumbar or lumbosacral intervertebral disc documented in this encounter Care Teams Continuous Dryout Operator Relationship Specialty Start Date End Date Braydon Pavon PA [address] [place] [address] PCP - General PHYSICIAN WARP TESTER 03/02/19 documented as of this encounter
--- OUTSIDE RECORDS SUMMARY | 2024-04-19 22:43 | XMS_ITS | Encounter Summary ---
Author Organization [facility] Address [address] [place] [address]. [place], [place] [id number] [place] [id number] Care Team Providers Care Guest Laundry Attendant Name Role Phone Unavailable Primary Care Provider Unavailabl e Reason for Visit * Reason Comments Abdominal Pain Weakness Encounter Details Date Type Department Care Team (Late st Contact Info) Description 10/25/2018 4:34 PM CDT - 10/25/2018 6:59 PM CDT Emergency [facility] [address] [place] [address] Abdominal Pain; Weakness Discharge Disposition: Left Against Medical Advice Social [...] Sign Reading Time Taken Comments Blood Pressure 136/73 10/25/2018 4:40 PM CDT Pulse 108 10/25/2018 4:40 PM CDT Temperature 37.1 ??C (98.8 ??F) 10/25/2018 4:40 PM CD T Respiratory Rate 20 10/25/2018 4:40 PM CDT Oxygen Saturation 95% 10/25/2018 4:40 PM CDT Inhaled Oxygen Concentration - - Weight 121.9 kg (268 lb 11.9 oz) 10/25/2018 4:40 PM CDT Height 172.7 cm (5' 8 ) 10/25/2018 4:40 PM CDT Body Mass Index 40.86 10/25/2018 4:40 PM CDT documented in this encounter Medications at Time of Discharge insulin regular, CONCENTRATED, (HUMULIN R U-500 KWIKPEN) 500 UNIT/ML injection 10/09/2016 019 omeprazole 20 MG capsule Take 1 capsule by mouth. 09/14/2016 02/15/2024 documented as of this encounter ED Notes * Divine Kolb RN - 10/25/2018 4:36 PM CDT Pt arrives ambulatory to triage with complaints of having end stage liver and has been having increased fatigue and right sided abdominal pain. Also states that he has been having trouble controllinghis blood sugar. documented in this encounter Plan of Treatment Upcoming Encounters Date Type Department Care Team (Late st Contact Info) Description 05/10/2024 11:40 AM MANAGER STORE Office Visit [facility] Medical [facility] Diabetes and Endocrinology - [address] [phone] Eva Power MD [address] [place] [phone] documented as of this encounter Procedures Procedure Name Priority Date/Time Associated Diagnosis Comments POCT BEDSIDE BLOOD GLUCOSE STAT 10/25/2018 5:05 PM CDT POCT GLUCOSE - ANDERSON DOCKED DEVICE Routine 10/25/2018 5:03 PM CDT documented in this encounter Results * (ABNORMAL) Bedside Blood Glucose (10/25/2018 5:05 PM CDT) GLUCOSE WHOLE BLOOD 347(A) 70 - 100 mg/dL us Faith Choe MD NURSING TREATMENT ORDERABLE S - ONCE OR INTERVALS Final Result * (ABNORMAL) POCT glucose (10/25/2018 5:03 PM CDT) GLUCOSE POC 347(H) 70 - 109 10/25/2018 5:06 PM CDT [facility] LAB ORDERS INTERFACE 10/25/2018 5:03 PM CDT us Attending Physician Emergency MD POCT ORDERABLES - DEVICE Final Result [facility] LAB ORDERS INTERFACE US documented in this encounter Visit Diagnoses Not on filedocumented in this encounter
--- OUTSIDE RECORDS SUMMARY | 2024-04-19 22:43 | XMS_ITS | Encounter Summary ---
Author Organization [facility] Address [address] [place] [address]. [place] [address] [place] [address] Care Team Providers Care Market Editor Name Role Phone Braydon Pavon Primary Care Provider [phone] Encounter Details Date Type Department Care Team [...] st Contact Info) Description 05/10/2024 11:40 AM ADMINISTRATIVE EXECUTIVE Office Visit [facility] Diabetes and Endocrinology - [address] [phone] Eva Power MD [address] [place] [phone] documented as of this encounter Visit Diagnoses Not on filedocumented in this encounter Care Teams Market Editor Relationship Specialty Start Date End Date Braydon Pavon PA [address] [place] [address] PCP - General PHYSICIAN WAFER ABRADING MACHINE TENDER 03/02/19 documented as of this encounter
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
--- OUTSIDE RECORDS SUMMARY | 2024-04-19 22:43 | XMS_ITS | Encounter Summary ---
Author Organization [facility] Address [address] [place] [address]. [place], [place] [address] [place] [address] Care Team Providers Care Airways Operations Specialist Name Role Phone Braydon Pavon Primary Care Provider [phone] Reason for Visit * Reason Comments Anxiety Encounter Details Date Type Department Care Team ([facility] st Contact Info) Description 03/19/2021 6:13 AM DEV MANAGER - 03/19/2021 6:20 AM [facility] Emergency [place] [facility] [address] [facility] [place] [address] Gerry Faustin MD [address] [place] [address] Anxiety Discharge Disposition: Home or Self Care (Routine Discharge) Social History Tobacco Use Types Packs/Day Years [...] COVID-19? No / Unsure 03/19/2021 6:15 AM DEV MANAGER documented as of this encounter Last Filed Vital Signs Vital Sign Reading Time Taken Comments Blood Pressure 159/73 03/19/2021 6:18 AM DEV MANAGER Pulse 98 03/19/2021 6:18 AM DEV MANAGER Temperature 36.4 ??C (97.5 ??F) 03/19/2021 6:18 AM CS T Respiratory Rate 16 03/19/2021 6:18 AM DEV MANAGER Oxygen Saturation 98% 03/19/2021 6:18 AM DEV MANAGER Inhaled Oxygen Concentration - - Weight 117.9 kg (260 lb) 03/19/2021 6:18 AM DEV MANAGER Height 172.7 cm (5' 8 ) 03/19/2021 6:18 AM DEV MANAGER Body Mass Index 39.53 03/19/2021 6:18 AM DEV MANAGER documented in this encounter Medications at Time of Discharge B-D ULTRAFINE III SHORT PEN 31G X 8 MM Misc 02/26/2021 Insulin Pen Needle (PEN NEEDLES) 32G X 4 MM Misc Inject 3 times daily 08/04/2019 lactulose 20 GM/30ML solution Take 30 mLs by mouth 4 (four) times daily. ONE TOUCH ULTRA TEST STRIPS test stripIndications: Type 2 diabetes mellitus with hyperglycemia, with long-term current use of insulin ([facility]) Test 4 times daily 200 strip 11 09/06/2019 rifaximin 200 MG tablet Take 550 mg by mouth 2 (two) times daily. vitamin D2, ergocalciferol, 37156 UNITS capsule Take 50,000 Units by mouth every 30 (thirty) days. ALPRAZolam (XANAX) 0.5 MG tablet Take 0.5 mg by mouth nightly as needed. 02/15/2024 ALPRAZolam 1 MG tablet 01/29/2021 02/15/2024 cyclobenzaprine 5 MG tablet 11/09/2020 02/15/2024 ENULOSE 10 GM/15ML solution 02/26/2021 02/15/20 HUMULIN R U-500 KWIKPEN 500 UNIT/ML injection Inject 200 units three times daily before meals 08/04/2019 02/15/2024 hydrochlorothiazi de 25 MG tablet Take 25 mg by mouth daily. 02/15/2024 metFORMIN ER, MOD, 500 MG TABLET SR 24 HR 24 hr tablet Take 2 tablets by mouth nightly. 02/15/2024 omeprazole 20 MG capsule Take 1 capsule by mouth. 09/14/2016 02/15/2024 ondansetron 4 MG tablet 04/04/2019 02/15/2024 oxyCODONE-acetami nophen 5-325 MG tablet 03/18/2021 02/15/2024 VENTOLIN HFA 108 (90 Base) MCG/ACT inhaler 04/04/2019 02/15/2024 VICTOZA 18 MG/3ML injection 02/01/2021 02/15/2024 documented as of this encounter ED Notes * Mere Hooker RN - 03/19/2021 6:37 AM CST Patient left prior to being seen by physician. MANAGER * Mere Hooker RN - 03/19/2021 6:23 AM CST Patient came to desk states he is leaving after triage was completed. Patient is no longer shaking or dry heaving While leaving states I feel like I offend you because of your questions and there is no fan in here patient left er and went to parking lot. Cell phone left in room nurse took to patient outside. MANAGER * Mere Hooker RN - 03/19/2021 6:16 AM CST Seen in [facility] yesterday was given oxycodone and has had three tablets woke up this am and felt panicked so I drove here chetna been having problems with the other er MANAGER * Gerry Faustin MD - 03/19/2021 6:13 AM CST eMERGENCY dEPARTMENT eNCOUnter CHIEF COMPLAINT Chief Complaint Patient presents with ??? Anxiety HPI HPI Camilo Curry is a 50-year-old male who presents to the ER with a complaint of anxiety but apparently left after being triaged by nursing staff within the first 15 minutes of arrival. ALLERGIES Allergies Allergen Reactions ??? Azithromycin Unknown ??? Aztreonam Unknown ??? Ciprofloxacin Unknown ??? Contrast [Iodine] Swelling ??? Duloxetine Hcl Unknown ??? Erythromycin Unknown ??? Esomeprazole Unknown ??? Nisoldipine Unknown ??? Octreotide Unknown ??? Penicillins Unknown ??? Sulfa Antibiotics Unknown CURRENT MEDICATIONS Current Outpatient Medications Medication Sig ??? cyclobenzaprine 5 MG tablet ??? ALPRAZolam (XANAX) 0.5 MG tablet Take 0.5 mg by mouth nightly as needed. ??? ALPRAZolam 1 MG tablet ??? B-D ULTRAFINE III SHORT PEN 31G X 8 MM Misc ??? ENULOSE 10 GM/15ML solution ??? HUMULIN R U-500 KWIKPEN 500 UNIT/ML injection Inject 200 units three times daily before meals ??? hydrochlorothiazide 25 MG tablet Take 25 mg by mouth daily. ??? Insulin Pen Needle (PEN NEEDLES) 32G X 4 MM Misc Inject 3 times daily ??? lactulose 20 GM/30ML solution Take 30 mLs by mouth 4 (four) times daily. ??? metFORMIN ER, MOD, 500 MG TABLET SR 24 HR 24 hr tablet Take 2 tablets by mouth nightly. ??? omeprazole 20 MG capsule Take 1 capsule by mouth. ??? ondansetron 4 MG tablet ??? ONE TOUCH ULTRA TEST STRIPS test strip Test 4 times daily ??? oxyCODONE-acetaminophen 5-325 MG tablet ??? rifaximin 200 MG tablet Take 550 mg by mouth 2 (two) times daily. ??? VENTOLIN HFA 108 (90 Base) MCG/ACT inhaler ??? VICTOZA 18 MG/3ML injection ??? vitamin D2, ergocalciferol, 93411 UNITS capsule Take 50,000 Units by mouth every 30 (thirty) days. PAST MEDICAL HISTORY Past Medical History: Diagnosis Date ??? History of upper gastrointestinal hemorrhage 09/10/2015 ??? HTN (hypertension) ??? 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 Type 2 diabetes mellitus with hyperglycemia, with long-term current use of insulin (CMS/HCC) SURGICAL HISTORY Past Surgical History: Procedure Laterality Date ??? COLONOSCOPY ??? HC TIPS REVISION SOCIAL HISTORY Social History Socioeconomic History ??? Marital status: Single Spouse name: Not on file ??? Number of children: Not on file ??? Years of education: Not on file ??? Highest education level: Not on file Occupational History ??? Not on file Tobacco Use ??? Smoking status: Former Smoker Quit date: 2000 Years since quittin.8 ??? Smokeless tobacco: Never Used Substance and Sexual Activity ??? Alcohol use: No ??? Drug use: No ??? Sexual activity: Never Other Topics Concern ??? Not on file Social History Narrative Former smoker, quit in 2001 Disabled Prior h/o drug use Social Determinants of Health Financial Resource Strain: Not on file Food Insecurity: Not on file Transportation Needs: Not on file Physical Activity: Not on file Stress: Not on file Social Connections: Not on file Intimate Partner Violence: Not on file FAMILY HISTORY Family History Problem Relation Name Age of Onset ??? Cancer Mother ??? Cancer Father ??? Diabetes Sister REVIEW OF SYSTEMS Review of Systems PHYSICAL EXAM Physical Exam Filed Vitals: 03/19/21 0618 BP: (!) 159/73 Pulse: 98 Resp: 16 Temp: 97.5 ??F (36.4 ??C) TempSrc: Temporal SpO2: 98% Weight: 117.9 kg (260 lb) Height: 5' 8 (1.727 m) EKG RADIOLOGY No orders to display LABS No results found for this visit on 03/19/21. ED MEDICATIONS Medications - No data to display PROCEDURES Procedures CONSULTS: ED COURSE & MEDICAL DECISION MAKING MDM Patient left after being triage within the first 15 minutes of arrival to the emergency department. FINAL IMPRESSION SNOMED CT(R) 1. Anxiety ANXIETY 2. Patient left without being seen LEFT BEFORE BEING SEEN No follow-up provider specified. New Prescriptions No medications on file Gerry Faustin MD 03/19/21624 MANAGER documented in this encounter Plan of Treatment Upcoming Encounters Date Type Department Care Team (Late st Contact Info) Description 05/10/2024 11:40 AM DEV MANAGER Office Visit [facility] Diabetes and Endocrinology - [address] [phone] Eva Power MD [address] [place] [address] documented as of this encounter Visit Diagnoses Diagnosis Anxiety- Primary Anxiety state, unspecified Patient left without being seen Surgical or other procedure not carried out because of patient's decision documented in this encounter Care Teams Airways Operations Specialist Relationship Specialty Start Date End Date Braydon Pavon PA [address] [place] [address] PCP - General PHYSICIAN MARKETING CONTENT COORDINATOR 03/02/19 documented as of this encounter
--- OUTSIDE RECORDS SUMMARY | 2024-04-19 22:43 | XMS_ITS | Encounter Summary ---
Author Organization [facility] Address [address] [place] [address]. [place] [address] [place] [address] Care Team Providers Care Pre Kindergarten Teacher Name Role Phone Braydon Pavon Primary Care Provider [phone] Reason for Visit * Reason Onset Date Comments Appointment Request 01/27/2024 Encounter Details Date Type Department Care Team (Late st Contact Info) Description 01/27/[address] [facility] Diabetes and Endocrinology - [address] [phone] Eva Power MD [address] [place] [address] Appointment Request Social History Tobacco Use Types Packs/Day [...] as of this encounter Progress Notes * Dione Oliveros - 01/28/2024 9:37 AM CDT Appt made for 02/15/[address] Power. Mailed reminder * Ellen Carpenter - 01/27/2024 9:25 AM CDT Caller name: Mayra, patients spouse Call back/ext. #:[phone] MyChart: No- caller prefers to be called via telephone Call details: She is requesting to make an appt for the patient. documented in this encounter Plan of Treatment Upcoming Encounters Date Type Department Care Team (Late st Contact Info) Description 05/10/2024 11:40 AM [address] [facility] Diabetes and Endocrinology - [address] [phone] Eva Power MD [address] [place] [address] documented as of this encounter Visit Diagnoses Not on filedocumented in this encounter Care Teams Pre Kindergarten Teacher Relationship Specialty Start Date End Date Braydon Pavon PA [address] [place] [address] PCP - General PHYSICIAN SCREENER PERFUMER 03/02/19 documented as of this encounter
--- OUTSIDE RECORDS SUMMARY | 2024-04-19 22:43 | XMS_ITS | Encounter Summary ---
Author Organization [facility] Address [address] [place] [address]. [place] [address] [place] [address] Care Team Providers Care Clinical Review Nurse Name Role Phone Braydon Pavon Primary Care Provider [phone] Encounter Details Date Type Department Care Team (Latest Contact Info) Description 03/22/2019 Scan HEALTH INFO SRVCS Scanned, Documents Social History Tobacco Use Types Packs/Day Years [...] st Contact Info) Description 05/10/2024 11:40 AM SHAKER OPERATOR Office Visit [facility] Medical [facility] Diabetes and Endocrinology - [address] [place] [address] Eva Power MD [address] [place] [address] documented as of this encounter Visit Diagnoses Not on filedocumented in this encounter Care Teams Clinical Review Nurse Relationship Specialty Start Date End Date Braydon Pavon PA [address] [place] [address] PCP - General PHYSICIAN POULTRY AND FISH BUTCHER 03/02/19 documented as of this encounter
--- OUTSIDE RECORDS SUMMARY | 2024-04-19 22:43 | XMS_ITS | Encounter Summary ---
Author Organization [facility] Address [address] [place] [address]. [place] [address] [place] [address] Care Team Providers Care Quality Control Checker Name Role Phone Unavailable Primary Care Provider Unavailabl e Encounter Details Date Type Department Care Team (Late Contact Info) Description 10/07/2017 [facility] [place] [address] Gregg Blandon MD [address] [place], [place] [address] Social History Tobacco Use Types Packs/Day Years [...] (Late Contact Info) Description 05/10/2024 11:40 AM MEDIA ASSOCIATE Office Visit [facility] Medical [facility] Diabetes and Endocrinology - [address] [phone] Eva Power MD [address] [place] [address] documented as of this encounter Procedures Procedure Name Priority Date/Time Associated Diagnosis Comments URINALYSIS WI REFLEX TO CULTURE STAT 10/07/2017 1:20 AM CDT COMPREHENSIVE METABOLIC PANEL STAT 10/07/2017 12:53 AM CDT CBC W/DIFF AUTOMATED STAT 10/07/2017 12:53 AM CDT LIPASE STAT 10/07/2017 12:53 AM CDT documented in this encounter Results * (ABNORMAL) URINALYSIS WI REFLEX TO CULTURE (10/07/2017 1:20 AM CDT) COLOR (U) YELLOW 10/07/2017 1:44 AM CDT [facility] TRANSPARENCY CLEAR 10/07/2017 1:44 AM CDT [facility] SPECIFIC GRAVITY (U) 1.020 1.000 - 1.025 10/07/2017 1:44 AM CDT [facility] U PH 6.0 5.0 - 8.0 10/07/2017 1:44 AM CDT [facility] LEUKOCYTES (U) NEGATIVE NEGATIVE 10/07/2017 1:44 AM CDT [facility] NITRITES NEGATIVE NEGATIVE 10/07/2017 1:44 AM CDT [facility] PROTEIN (U) NEGATIVE NEGATIVE 10/07/2017 1:44 AM CDT [facility] URINE GLUCOSE 3+(A) NEGATIVE 10/07/2017 1:44 AM CDT [facility] KETONES MG/DL (U) NEGATIVE NEGATIVE 10/07/2017 1:44 AM CDT [facility] UROBILINOGEN 0.2 <1.0 EU/DL 10/07/2017 1:44 AM CDT [facility] BILIRUBIN (U) NEGATIVE NEGATIVE 10/07/2017 1:44 AM CDT [facility] BLOOD (U) NEGATIVE NEGATIVE 10/07/2017 1:44 AM CDT [facility] WBC/HPF 0-5 0 - 5 /HPF 10/07/2017 1:44 AM CDT [facility] RBC/HPF 0-5 0 - 5 /HPF 10/07/2017 1:44 AM CDT [facility] EPI/HPF OCCASIONAL /LPF 10/07/2017 1:44 AM CDT [facility] BACTERIA (U) 1+ /HPF 10/07/2017 1:44 AM CDT [facility] MUCUS PRESENT 10/07/2017 1:44 AM CDT [facility] CULTURE & SENSITIVITY INDICATED? NOT INDICATED 10/07/2017 1:46 AM CDT [facility] Comment: CORRECTION CALLED TO NICHOLAS IN ER AT 0145 ON 10/07/17 RBV CORRECTED ON 10/07 AT 0146: PREVIOUSLY REPORTED NONE SEEN OTHER (type in comments) 10/07/2017 1:20 AM CDT 10/07/2017 1:35 AM CDT Comment:URINE SPECIMEN~URINE SPECIMEN us Generic Conversion Md RED URINE ORDERABLES Edited Result - Final Performing Organization Address City/[facility]/ZIP Co de Phone Number [facility] [address] [place] [address], * LIPASE (10/07/2017 12:53 AM CDT) LIPASE 39 8 - 78 UNITS/L 10/07/2017 1:21 AM CDT [facility] SERUM OR PLASMA SPECIMEN / Unknown 10/07/2017 12:53 AM CDT 10/07/2017 12:56 AM CDT us Generic Conversion Md RDE LABORATORY Final R esult Performing Organization Address City/[facility]/ZIP Co de Phone Number [facility] [address] [place] [address], * (ABNORMAL) COMPREHENSIVE METABOLIC PANEL (10/07/2017 12:53 AM CDT) GLUCOSE 363(H) 70 - 99 MG/DL 10/07/2017 1:21 AM CDT [facility] BUN 12 9 - 21 MG/DL 10/07/2017 1:21 AM CDT [facility] CREATININE S/P/B 0.97 0.72 - 1.25 MG/DL 10/07/2017 1:[address] [facility] SODIUM S/P/B 136 136 - 145 MMOL/L 10/07/2017 1:[address] [facility] POTASSIUM S/P/B 4.4 3.5 - 5.1 MMOL/L 10/07/2017 1:[address] [facility] CHLORIDE S/P/B 101 98 - 107 MMOL/L 10/07/2017 1:[address] [facility] CO2 24.0 22.0 - 29.0 MMOL/L 10/07/2017 1:[address] [facility] CALCIUM S/P/B 10.0 8.4 - 10.2 MG/DL 10/07/2017 1:[address] [facility] BILIRUBIN TOTAL S/P/B 1.1 0.2 - 1.2 MG/DL 10/07/2017 1:[address] [facility] TOTAL PROTEIN S/P/B 7.6 6.0 - 8.3 G/DL 10/07/2017 1:[address] [facility] ALBUMIN S/P/B 4.1 3.5 - 5.2 G/DL 10/07/2017 1:[address] [facility] AST 51(H) 5 - 34 U/L 10/07/2017 1:[address] [facility] ALT 59(H) 0 - 55 U/L 10/07/2017 1:[address] [facility] ALKALINE PHOSPHATASE S/P/B 89 50 - 136 U/L 10/07/2017 1:[address] [facility] OSMOLALITY (CALC) 286 275 - 300 MOSM/KG 10/07/2017 1:[address] [facility] A/G RATIO 1.2 1.0 - 1.6 RATIO 10/07/2017 1:[address] [facility] BUN CREATININE RATIO 12.4 12 - 20 10/07/2017 1:[address] [facility] ANION GAP 11.0 7 - 16 MMOL/L 10/07/2017 1:[address] [facility] EGFR NON-AFR. AMER. >60 >60 ML/MIN/1.7 3 M2 10/07/2017 1:21 AM CDT [facility] EGFR AFR. AMER. >60 >60 ML/MIN/1.7 3 M2 10/07/2017 1:21 AM CDT [facility] 10/07/2017 12:5 3 AM CDT 10/07/2017 12:56 AM CDT us Generic Conversion Md RED LABORATORY Final R esult [facility] [address] [place] [address], * (ABNORMAL) CBC W/DIFF AUTOMATED (10/07/2017 12:53 AM CDT) WBC 4.5 4.5 - 10.8 x10'3/uL 10/07/2017 1:01 AM CDT [facility] RBC 5.10 4.50 - 6.10 x10'6/uL 10/07/2017 1:01 AM CDT [facility] HGB 14.3 13.0 - 18.0 G/DL 10/07/2017 1:01 AM CDT [facility] HCT 42.2 37.0 - 52.0 % 10/07/2017 1:01 AM CDT [facility] MCV 82.7 78.0 - 100.0 FL 10/07/2017 1:01 AM CDT [facility] MCH 28.0 27.0 - 31.0 PG 10/07/2017 1:01 AM CDT [facility] MCHC 33.9 33.0 - 36.0 G/DL 10/07/2017 1:01 AM CDT [facility] RDW 14.6(H) 11.5 - 14.5 % 10/07/2017 1:01 AM CDT [facility] PLT 90(L) 150 - 350 x10'3/uL 10/07/2017 1:01 AM CDT [facility] MPV 10.8(H) 7.4 - 10.4 FL 10/07/2017 1:01 AM CDT [facility] SEG NEUTROPHILS 70.7 % 8 1:10 AM CDT [facility] LYMPHOCYTES 17.2 % 10/07/2017 1:10 AM CDT [facility] MONOCYTES 8.7 % 10/07/2017 1:10 AM CDT [facility] EOSINOPHILS 2.5 % 10/07/2017 1:10 AM CDT [facility] BASOPHILS 0.7 % 10/07/2017 1:10 AM CDT [facility] IMMATURE GRANS % 0.2 % 10/08/19 18 1:10 AM CDT [facility] NRBC 0.0 % 10/07/2017 1:10 AM CDT [facility] ABS. NEUTROPHILS 3.18 1.60 - 8.30 x10'3/uL 10/07/2017 1:10 AM CDT [facility] ABS. LYMPHOCYTES 0.77(L) 0.80 - 4.70 x10'3/uL 10/07/2017 1:10 AM CDT [facility] ABS. MONOCYTES 0.39 0.00 - 1.50 x10'3/uL 10/07/2017 1:10 AM CDT [facility] ABS. EOSINOPHILS 0.11 0.00 - 0.40 x10'3/uL 10/07/2017 1:10 AM CDT [facility] ABS. BASOPHILS 0.03 0.00 - 0.20 x10'3/uL 10/07/2017 1:10 AM CDT [facility] ABS. IMMATURE GRANULOCYTES 0.01 0.00 - 0.03 x10'3/uL 10/07/2017 1:10 AM CDT [facility] ABS. NUCLEATED RBC'S 0.00 0.00 x10'3/uL 10/07/2017 1:10 AM CDT [facility] PLT MORPH. DECREASED 10/07/2017 1:10 AM CDT [facility] RBC MORPHOLOGY NORMAL 10/07/2017 1:10 AM CDT [facility] OTHER (type in comments) 10/07/2017 12:53 AM CDT 10/07/2017 12:56 AM CDT Comment:WHOLE BLOOD SAMPLE us Generic Conversion Md RED LABORATORY Final R esult [facility] [address] [place] [address], documented in this encounter Visit Diagnoses Diagnosis Abdominal pain Abdominal pain, unspecified site documented in this encounter
--- OUTSIDE RECORDS SUMMARY | 2024-04-19 22:43 | XMS_ITS | Encounter Summary ---
Author Organization [facility] Address [facility] [place], [place] [id number] [place] [address] Care Team Providers Care Forestry Aid Technician Name Role Phone Braydon Pavon Primary Care Provider [phone] Reason for Visit * Reason Comments Back Pain Pt has multiple heal th issues. Pt has liver cirrohsis and varices. For 2 weeks pt c/o back and chest pain . Pt states his liver hurts. Has not sen liver specialist for over a year. Encounter Details Date Type Department Care Team (Late st Contact Info) Description 03/02/2019 9:18 PM CDT - 03/02/2019 9:50 PM CDT Emergency [facility] [address] Gerry Faustin MD [address] [place] [address] [id number] Back Pain (Pt has multiple health issues. Pt has liver cirrohsis and varices. For 2 weeks pt c/o back and chest pain . Pt states his liver hurts. Has not sen liver specialist for over a year.) Discharge Disposition: Left Against Medical Advice Social [...] Sign Reading Time Taken Comments Blood Pressure 150/84 03/02/2019 9:23 PM CDT Pulse 110 03/02/2019 9:23 PM CDT Temperature 37.3 ??C (99.1 ??F) 03/02/2019 9:23 PM CD T Respiratory Rate 18 03/02/2019 9:23 PM CDT Oxygen Saturation 95% 03/02/2019 9:23 PM CDT Inhaled Oxygen Concentration - - Weight 120.2 kg (265 lb) 03/02/2019 9:23 PM CDT Height 172.7 cm (5' 8 ) 03/02/2019 9:23 PM CDT Body Mass Index 40.29 03/02/2019 9:23 PM CDT documented in this encounter Medications at Time of Discharge lactulose 20 GM/30ML solution Take 30 mLs by mouth 4 (four) times daily. rifaximin 200 MG tablet Take 550 mg by mouth 2 (two) times daily. vitamin D2, ergocalciferol, 04470 UNITS capsule Take 50,000 Units by mouth every 30 (thirty) days. ALPRAZolam (XANAX) 0.5 MG tablet Take 0.5 mg by mouth nightly as needed. 02/15/2024 hydrochlorothiazi de 25 MG tablet Take 25 mg by mouth daily. 02/15/2024 hydrocodone-aceta minophen 10-325 MG tablet Take 1 tablet by mouth every 6 (six) hours as needed for Pain. 04/05/2019 INSULIN REGULAR IJ 150 Units. 04/05/2019 metFORMIN 1000 MG tablet Take 1,000 mg by mouth. 04/05/2019 omeprazole 20 MG capsule Take 1 capsule by mouth. 09/14/2016 02/15/2024 documented as of this encounter ED Notes * Francisca Little RN - 03/02/2019 9:[address] Faustin to examine. * Gerry Faustin MD - 03/02/2019 9:12 PM CDT eMERGENCY dEPARTMENT eNCOUnter CHIEF COMPLAINT Chief Complaint Patient presents with ??? Back Pain Pt has multiple health issues. Pt has liver cirrohsis and varices. For 2 weeks pt c/o back and chest pain . Pt states his liver hurts. Has not sen liver specialist for over a year. HPI HPI Camilo Curry is a 48-year-old male who presents to the ER with a complaint of multiple issues. Patient states that he has history of chronic liver disease and for the last year and a half has not had a liver specialist. He apparently used to see someone at [facility] and was starting to see someone at [facility] and that something happened with his insurance. He states that the specialistin [facility] did not take his insurance either. He states over the last 2 weeks he said progressive pain to the back right flank area which she believes is from his liver. He also recently was seen[facility] [place] [facility] after coughing and vomiting up some blood. He states that he is continued to occasionally cough and spit up blood but is not having any pain fever shortness of breathor other symptoms although on further questioning he states he has generalized discomfort in his upper chest which she is noticed for the last several days. He apparently has not notified his primarycare physician of these complaints. ALLERGIES Allergies Allergen Reactions ??? Azithromycin Unknown ??? Aztreonam Unknown ??? Ciprofloxacin Unknown ??? Contrast [Iodine] Swelling ??? Duloxetine Hcl Unknown ??? Erythromycin Unknown ??? Esomeprazole Unknown ??? Nisoldipine Unknown ??? Octreotide Unknown ??? Penicillins Unknown ??? Sulfa Antibiotics Unknown CURRENT MEDICATIONS Current Outpatient Medications Medication Sig ??? ALPRAZolam (XANAX) 1 MG tablet Take 5 mg by mouth. ??? hydrochlorothiazide 25 MG tablet Take 25 mg by mouth daily. ??? hydrocodone-acetaminophen 10-325 MG tablet Take 1 tablet by mouth every 6 (six) hours as neededfor Pain. ??? INSULIN REGULAR IJ 150 Units. ??? lactulose 20 GM/30ML solution Take 30 mLs by mouth 4 (four) times daily. ??? metFORMIN 1000 MG tablet Take 1,000 mg by mouth. ??? omeprazole 20 MG capsule Take 1 capsule by mouth. ??? rifaximin 200 MG tablet Take 550 mg by mouth 2 (two) times daily. ??? vitamin D2, ergocalciferol, 85638 UNITS capsule Take 50,000 Units by mouth every 30 (thirty) days. PAST MEDICAL HISTORY Past Medical History: Diagnosis Date ??? Diabetes mellitus (CMS/HCC) ??? Liver failure (CMS/HCC) SURGICAL HISTORY Past Surgical History: Procedure Laterality Date ??? COLONOSCOPY ??? HC TIPS REVISION SOCIAL HISTORY Social History Socioeconomic History ??? Marital status: Single Spouse name: Not on file ??? Number of children: Not on file ??? Years of education: Not on file ??? Highest education level: Not on file Occupational History ??? Not on file Social Needs ??? Financial resource strain: Not on file ??? Food insecurity: Worry: Not on file Inability: Not on file ??? Transportation needs: Medical: Not on file Non-medical: Not on file Tobacco Use ??? Smoking status: Current Every Day Smoker ??? Smokeless tobacco: Never Used Substance and Sexual Activity ??? Alcohol use: No Frequency: Never ??? Drug use: No ??? Sexual activity: No Lifestyle ??? Physical activity: Days per week: Not on file Minutes per session: Not on file ??? Stress: Not on file Relationships ??? Social connections: Talks on phone: Not on file Gets together: Not on file Attends taoist service: Not on file Active member of club or organization: Not on file Attends meetings of clubs or organizations: Not on file Relationship status: Not on file ??? Intimate partner violence: Fear of current or ex partner: Not on file Emotionally abused: Not on file Physically abused: Not on file Forced sexual activity: Not on file Other Topics Concern ??? Not on file Social History Narrative ??? Not on file FAMILY HISTORY No family history on file. REVIEW OF SYSTEMS Review of Systems All other ROS negative unless noted above in HPI. PHYSICAL EXAM Physical Exam Filed Vitals: 03/02/193 BP: 150/84 Pulse: 110 Resp: 18 Temp: 99.1 ??F (37.3 ??C) TempSrc: Temporal SpO2: 95% Weight: 120.2 kg (265 lb) Height: 5' 8 (1.727 m) The patient is a well developed and well nourished adult male in no distress, alert and oriented. Patient's head and neck exam is grossly normal and he was breathing without any difficulty. EKG RADIOLOGY No orders to display LABS No results found for this visit on 03/02/19. ED MEDICATIONS Medications - No data to display PROCEDURES Procedures CONSULTS: ED COURSE & MEDICAL DECISION MAKING MDM I long discussion with the patient about the importance of keeping in close contact with his specialist. I explained to him that we could do some testing here to make sure that he was not in worsening liver failure having anything immediately life-threatening as well as to check his chest discomfort. I also encouraged him to be more forceful with the institutions that apparently have been slow tosee him for whatever reason. At that point the patient stated that he should probably just go rightto [facility] to be evaluated. I told him that I certainly could not recommend that and told him that if we did some initial testing in the emergency department here if there was anything that wouldneed hospitalization we could transfer him via our normal process and it would likely be quicker and safer for him. I am not sure if I upset him in the discussion that we had or what but I could not talk him into staying for further testing here and he was quite adamant about leaving and going directly to [facility] although he would not say which hospital he would go to. I told him he could certainly come back at any time if he change his mind and that he was leaving against our advice but he left prior to even signing any documents. FINAL IMPRESSION SNOMED CT(R) 1. Chronic liver disease CHRONIC LIVER DISEASE No follow-up provider specified. Discharge Medication List as of 03/02/2019 10:09 PM Gerry Faustin MD 03/02/19 2229 documented in this encounter Plan of Treatment Upcoming Encounters Date Type Department Care Team (Late st Contact Info) Description 05/10/2024 11:40 AM CLIENT SERVICE REPRESENTATIVE Office Visit [facility] Diabetes and Endocrinology - [address] [phone] Eva Power MD [address] [place] [address] documented as of this encounter Visit Diagnoses Diagnosis Chronic liver disease- Primary Unspecified chronic liver disease without mention of alcohol documented in this encounter Care Teams Forestry Aid Technician Relationship Specialty Start Date End Date Braydon Pavon PA [address] [place] [address] PCP - General PHYSICIAN ELASTIC TAPE INSERTER 03/02/19 documented as of this encounter
--- OUTSIDE RECORDS SUMMARY | 2024-04-19 22:43 | XMS_ITS | Encounter Summary ---
Author Organization [facility] Address [address] [place] [address]. [place] [address] [place] [address] Care Team Providers Care Oven Operator Name Role Phone Unavailable Primary Care Provider Unavailabl e Encounter Details Date Type Department Care Team (Late Contact Info) Description 07/01/2017 [facility] Emergency Room [address] [place] [address] [place] [address] Lukas Corea MD [address] [place] [address] Social History Tobacco Use Types Packs/Day Years [...] (Late Contact Info) Description 05/10/2024 11:40 AM ELECTRICIAN RADIO Office Visit [facility] Medical [facility] Diabetes and Endocrinology - [address] [phone] Eva Power MD [address] [place] [address] [place] [address] documented as of this encounter Procedures Procedure Name Priority Date/Time Associated Diagnosis Comments URINALYSIS STAT 07/01/2017 8:00 PM ELECTRICIAN RADIO COMPREHENSIVE METABOLIC PANEL STAT 07/01/2017 7:28 PM ELECTRICIAN RADIO CBC W/DIFF AUTOMATED STAT 07/01/2017 7:28 PM ELECTRICIAN RADIO AMMONIA STAT 07/01/2017 7:28 PM ELECTRICIAN RADIO documented in this encounter Results * (ABNORMAL) URINALYSIS (07/01/2017 8:00 PM ELECTRICIAN RADIO) COLOR (U) YELLOW 07/01/2017 8:21 PM ELECTRICIAN RADIO [facility] TRANSPARENCY CLEAR 07/01/2017 8:21 PM [facility] SPECIFIC GRAVITY (U) 1.025 1.000 - 1.025 07/01/2017 8:21 PM [facility] U PH 6.0 5.0 - 8.0 07/01/2017 8:21 PM [facility] LEUKOCYTES (U) NEGATIVE NEGATIVE 07/01/2017 8:21 PM [facility] NITRITES NEGATIVE NEGATIVE 07/01/2017 8:21 PM [facility] PROTEIN (U) NEGATIVE NEGATIVE 07/01/2017 8:21 PM [facility] URINE GLUCOSE 3+(A) NEGATIVE 07/01/2017 8:21 PM [facility] KETONES MG/DL (U) NEGATIVE NEGATIVE 07/01/2017 8:21 PM [facility] UROBILINOGEN 4.0(H) <1.0 EU/DL 07/01/2017 8:21 PM [facility] BILIRUBIN (U) NEGATIVE NEGATIVE 07/01/2017 8:21 PM [facility] BLOOD (U) NEGATIVE NEGATIVE 07/01/2017 8:21 PM [facility] WBC/HPF 0-5 0 - 5 /HPF 07/01/2017 8:21 PM [facility] RBC/HPF 0-5 0 - 5 /HPF 07/01/2017 8:21 PM [facility] EPI/HPF FEW /LPF 07/01/2017 8:21 PM [facility] MUCUS PRESENT 07/01/2017 8:21 PM [facility] 07/01/2017 8:00 PM ELECTRICIAN RADIO 07/01/2017 8:08 PM ELECTRICIAN RADIO us Generic Conversion Md RED URINE ORDERABLES Final Result [facility] [address] [place] [address], * (ABNORMAL) COMPREHENSIVE METABOLIC PANEL (07/01/2017 7:28 PM ELECTRICIAN RADIO) GLUCOSE 308(H) 70 - 99 MG/DL 07/01/2017 7:57 PM [facility] BUN 12 9 - 21 MG/DL 07/01/2017 7:57 PM [facility] CREATININE S/P/B 0.78 0.72 - 1.25 MG/DL 07/01/2017 7:57 PM [facility] SODIUM S/P/B 139 136 - 145 MMOL/L 07/01/2017 7:57 PM [facility] POTASSIUM S/P/B 4.0 3.5 - 5.1 MMOL/L 07/01/2017 7:57 PM [facility] CHLORIDE S/P/B 106 98 - 107 MMOL/L 07/01/2017 7:57 PM [facility] CO2 24.0 22.0 - 29.0 MMOL/L 07/01/2017 7:57 PM [facility] CALCIUM S/P/B 9.0 8.4 - 10.2 MG/DL 07/01/2017 7:57 PM [facility] BILIRUBIN TOTAL S/P/B 1.2 0.2 - 1.2 MG/DL 07/01/2017 7:57 PM [facility] TOTAL PROTEIN S/P/B 6.9 6.0 - 8.3 G/DL 07/01/2017 7:57 PM [facility] ALBUMIN S/P/B 3.5 3.5 - 5.2 G/DL 07/01/2017 7:57 PM [facility] AST 50(H) 5 - 34 U/L 07/01/2017 7:57 PM [facility] ALT 57(H) 0 - 55 U/L 07/01/2017 7:57 PM [facility] ALKALINE PHOSPHATASE S/P/B 76 50 - 136 U/L 07/01/2017 7:57 PM [facility] OSMOLALITY (CALC) 289 275 - 300 MOSM/KG 07/01/2017 7:57 PM [facility] A/G RATIO 1.0 1.0 - 1.6 RATIO 07/01/2017 7:57 PM [facility] BUN CREATININE RATIO 15.4 12 - 20 07/01/2017 7:57 PM [facility] ANION GAP 9.0 7 - 16 MMOL/L 07/01/2017 7:57 PM [facility] EGFR NON-AFR. AMER. >60 >60 ML/MIN/1.7 3 M2 07/01/2017 7:57 PM [facility] EGFR AFR. AMER. >60 >60 ML/MIN/1.7 3 M2 07/01/2017 7:57 PM [facility] 07/01/2017 7:28 PM ELECTRICIAN RADIO 07/01/2017 7:35 PM [facility] us Generic Conversion Md RED LABORATORY Final R esult [facility] [address] [place] [address], * (ABNORMAL) CBC W/DIFF AUTOMATED (07/01/2017 7:28 PM ELECTRICIAN RADIO) WBC 4.1(L) 4.5 - 10.8 x10'3/uL 07/01/2017 7:46 PM [facility] RBC 4.47(L) 4.50 - 6.10 x10'6/uL 07/01/2017 7:46 PM [facility] HGB 12.7(L) 13.0 - 18.0 G/DL 07/01/2017 7:46 PM [facility] HCT 37.3 37.0 - 52.0 % 07/01/2017 7:46 PM [facility] MCV 83.4 78.0 - 100.0 FL 07/01/2017 7:46 PM [facility] MCH 28.4 27.0 - 31.0 PG 07/01/2017 7:46 PM [facility] MCHC 34.0 33.0 - 36.0 G/DL 07/01/2017 7:46 PM [facility] RDW 15.0(H) 11.5 - 14.5 % 07/01/2017 7:46 PM [facility] PLT 92(L) 150 - 350 x10'3/uL 07/01/2017 7:46 PM [facility] MPV 10.6(H) 7.4 - 10.4 FL 07/01/2017 7:46 PM [facility] SEG NEUTROPHILS 68.8 % 8 7:58 PM [facility] LYMPHOCYTES 19.2 % 07/01/2017 7:58 PM [facility] MONOCYTES 8.9 % 07/01/2017 7:58 PM [facility] EOSINOPHILS 2.2 % 07/01/2017 7:58 PM [facility] BASOPHILS 0.7 % 07/01/2017 7:58 PM [facility] IMMATURE GRANS % 0.2 % 07/01/19 18 7:58 PM [facility] NRBC 0.0 % 07/01/2017 7:58 PM [facility] ABS. NEUTROPHILS 2.82 1.60 - 8.30 x10'3/uL 07/01/2017 7:58 PM [facility] ABS. LYMPHOCYTES 0.79(L) 0.80 - 4.70 x10'3/uL 07/01/2017 7:58 PM [facility] ABS. MONOCYTES 0.36 0.00 - 1.50 x10'3/uL 07/01/2017 7:58 PM [facility] ABS. EOSINOPHILS 0.09 0.00 - 0.40 x10'3/uL 07/01/2017 7:58 PM ELECTRICIAN RADIO [facility] ABS. BASOPHILS 0.03 0.00 - 0.20 x10'3/uL 07/01/2017 7:58 PM ELECTRICIAN RADIO [facility] ABS. IMMATURE GRANULOCYTES 0.01 0.00 - 0.03 x10'3/uL 07/01/2017 7:58 PM ELECTRICIAN RADIO [facility] ABS. NUCLEATED RBC'S 0.00 0.00 x10'3/uL 07/01/2017 7:58 PM ELECTRICIAN RADIO [facility] PLT MORPH. DECREASED 07/01/2017 7:58 PM ELECTRICIAN RADIO [facility] RBC MORPHOLOGY NORMAL 07/01/2017 7:58 PM ELECTRICIAN RADIO [facility] OTHER (type in comments) 07/01/2017 7:28 PM ELECTRICIAN RADIO 07/01/2017 7:35 PM ELECTRICIAN RADIO Comment:WHOLE BLOOD SAMPLE us Generic Conversion Md RED LABORATORY Final R esult [facility] [address] [place] [address], [place] [phone] * (ABNORMAL) AMMONIA (07/01/2017 7:28 PM ELECTRICIAN RADIO) AMMONIA 140(H) 18 - 72 UMOL/L 07/01/2017 7:53 PM ELECTRICIAN RADIO [facility] PLASMA SPECIMEN / Unknown 07/01/2017 7:28 PM ELECTRICIAN RADIO 07/01/2017 7:35 PM ELECTRICIAN RADIO us Generic Conversion Md RED LABORATORY Final R esult [facility] [address] [place] [address], [place] [phone] documented in this encounter Visit Diagnoses Diagnosis Hepatic failure, without coma (CMS/HCC HHS/HCC) Other sequelae of chronic liver disease documented in this encounter
--- OUTSIDE RECORDS SUMMARY | 2024-04-19 22:43 | XMS_ITS | Encounter Summary ---
Author Organization [facility] Address [address] [place] [address]. [place], [place] [address] [place] [address] Care Team Providers Care Pl Sql Developer Name Role Phone Unavailable Primary Care Provider Unavailabl e Encounter Details Date Type Department Care Team (Latest Contact Info) Description 12/04/2017 [facility] Social History Tobacco Use Types Packs/Day Years Used Date Smoking Tobacco: Never Assessed Sex and Gender Information Value Date Recorded Sex Assigned at Not on file Legal Sex Male 9:36 PM CDT Gender Identity Not on file Sexual Orientation Straight 03/02/2019 9: 44 PM CDT documented as of this encounter Progress Notes * Eva Power MD - 12/04/2017 1:55 PM CDT This legacy [employer] note was not finalized in Allscripts. It had a status of Auto Frozen, Unsigned on 01/29/2018 Message Recorded as Task Date: 12/02/2017 01:14 PM, Created By: Faith Combs Task Name: Call Back Assigned To: Alyse Cote Regarding Patient: Camilo Curry, Status: Active Comment: Faith Combs - 02 Dec 2017 1:14 PM TASK CREATED Caller: Mayra, Spouse; Other; Please call Mayra Power's Nurse [phone] Phone Thank You. Alyse Cote - 04 Dec 2017 1:55 PM TASK EDITED I spoke with Mayra, spouse of patient, and informed her patient has [employer] insurance and we are not in network. I advised Mayra if patient was not able to change insurance to [place], [place], or [place] under Managed Medicaid, patient would be expected to pay for charges incurred. Mayra stated patient would not be able to switch insurance d/t necessity to see another provider. I cancelled patient's appointment for 01/05/18 w/Dr. Power. Informed Mayra, we would no longer approve RX for patient. Mayra stated she would have PCP take care of patient's diabetes and RX. bmp documented in this encounter Plan of Treatment Upcoming Encounters Date Type Department Care Team (Late st Contact Info) Description 05/10/2024 11:40 AM COLLEGE ADVISOR Office Visit [facility] Diabetes and Endocrinology - [address] [phone] Eva Power MD [address] [place] [phone] documented as of this encounter Visit Diagnoses Not on filedocumented in this encounter
--- OUTSIDE RECORDS SUMMARY | 2024-04-19 22:43 | XMS_ITS | Encounter Summary ---
Author Organization [facility] Address [address] [place] [address]. [place] [address] [place] [address] Care Team Providers Care Piano Machine Operator Name Role Phone Unavailable Primary Care Provider Unavailabl e Encounter Details Date Type Department Care Team (Late st Contact Info) Description 06/29/2018 [facility] [address] [place] [address] , Sarina Dotson MD Social History Tobacco Use Types Packs/Day [...] st Contact Info) Description 05/10/2024 11:40 AM JOURNEYMAN GLAZIER Office Visit [facility] Diabetes and Endocrinology - [address] [phone] Eva Power MD [address] [place] [address] documented as of this encounter Visit Diagnoses Diagnosis Radiculopathy of lumbar region Thoracic or lumbosacral neuritis or radiculitis, unspecified documented in this encounter
--- OUTSIDE RECORDS SUMMARY | 2024-04-19 22:43 | XMS_ITS | Encounter Summary ---
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 Neeraj Page MD - 01/22/2024 [facility] [address] [place], [place] [address] Examination: XR NASAL BONES MIN 3V Exam [...] By: Neeraj Page MD, 01/22/2024 9:46 PM us Riddhi Domínguez DO GENERAL IMAGING Final Resu lt * (ABNORMAL) AMMONIA (01/22/2024 5:47 PM CDT) AMMONIA 58(H) 11 - 32 UMOL/L 01/22/2024 6:40 PM CDT [facility] 01/22/2024 5:47 PM CDT us Riddhi Doímnguez DO LABORATORY Final Resu lt [facility] [address] [place] [address], [phone] * MAGNESIUM (01/22/2024 5:47 PM CDT) MAGNESIUM 1.7 1.6 - 2.6 MG/DL 01/22/2024 6:24 PM CDT [facility] 01/22/2024 5:47 PM CDT Cody Hayden NP LABORATORY Final Resul t Performing Organization Address [facility] de Phone Number [facility] [address] [place] [address], [phone] * (ABNORMAL) PROTIME/INR, VENOUS (01/22/2024 5:47 PM CDT) PROTIME 13.9(H) 9.4 - 12.5 SEC 01/22/2024 6:21 PM CDT [facility] INR 1.2(H) 0.8 - 1.1 01/22/2024 6:21 PM CDT [facility] 01/22/2024 5:47 PM CDT us Cody Hayden NP LABORATORY Final Resul t Performing Organization Address [facility] de Phone Number [facility] [address] [place] [address], [phone] * LIPASE (01/22/2024 5:47 PM CDT) LIPASE 25 13 - 75 UNITS/L 01/22/2024 6:24 PM CDT [facility] 01/22/2024 5:47 PM CDT Cody Hayden NP LABORATORY Final Resul t Performing Organization Address [facility] Co de Phone Number [facility] [address] [place] [address], [phone] * (ABNORMAL) HEPATIC FUNCTION PANEL (01/22/2024 5:47 PM CDT) BILIRUBIN TOTAL S/P/B 4.1(H) 0.2 - 1.0 MG/DL 01/22/2024 6:24 PM CDT [facility] BILIRUBIN DIRECT S/P/B 0.5(H) 0.0 - 0.2 MG/DL 01/22/2024 6:24 PM CDT [facility] ALKALINE PHOSPHATASE S/P/B 101 45 - 115 U/L 01/22/2024 6:24 PM CDT [facility] AST 21 15 - 37 U/L 01/22/2024 6:24 PM CDT [facility] ALT 21 16 - 61 U/L 01/22/2024 6:24 PM CDT [facility] TOTAL PROTEIN S/P/B 7.1 6.4 - 8.2 G/DL 01/22/2024 6:24 PM CDT [facility] ALBUMIN S/P/B 3.5 3.4 - 5.0 G/DL 01/22/2024 6:24 PM CDT [facility] 01/22/2024 5:47 PM CDT Cody Hayden FACILITIES MAINTENANCE TECHNICIAN LABORATORY Final Resul t [facility] [address] [place] [address], [phone] * (ABNORMAL) BASIC METABOLIC PANEL (01/22/2024 5:47 PM CDT) SODIUM S/P/B 137 136 - 145 MMOL/L 01/22/2024 6:24 PM CDT [facility] POTASSIUM S/P/B 4.1 3.5 - 5.1 MMOL/L 01/22/2024 6:24 PM CDT [facility] CHLORIDE S/P/B 104 97 - 115 MMOL/L 01/22/2024 6:24 PM T [facility] CO2 28.4 21.0 - 32.0 MMOL/L 01/22/2024 6:24 PM T [facility] GLUCOSE 353(H) 74 - 106 MG/DL 01/22/2024 6:24 PM CDT [facility] BUN 13 7 - 18 MG/DL 01/22/2024 6:24 PM T [facility] CREATININE S/P/B 0.93 0.70 - 1.30 MG/DL 01/22/2024 6:24 PM T [facility] CALCIUM S/P/B 9.7 8.5 - 10.1 MG/DL 01/22/2024 6:24 PM T [facility] ANION GAP 4.6 2.0 - 10.0 MMOL/L 01/22/2024 6:24 PM T [facility] OSMOLALITY (CALC) 298 MOSM/KG 024 6:24 PM T [facility] Comment:REFERENCE RANGE NOT ESTABLISHED GFR ESTIMATE >90 >90 ML/MIN/1. 73 M2 01/22/2024 6:24 PM T [facility] GFR NOTES GFR REFERENCE S: 01/22/2024 6:24 PM [facility] Comment: THE ESTIMATED GFR IS [...] <15 ml/min/1.73 m2 01/22/2024 5:47 PM CDT Cody Hayden FACILITIES MAINTENANCE TECHNICIAN LABORATORY Final Resul t [facility] [address] [place] [address], [phone] * (ABNORMAL) CBC W/DIFF AUTOMATED (01/22/2024 5:47 PM CDT) WBC 4.13 4.00 - 10.80 x10'3/uL 01/22/2024 6:00 PM CDT [facility] RBC 5.37 4.50 - 6.10 x10'6/uL 01/22/2024 6:00 PM CDT [facility] HGB 15.5 12.0 - 16.0 G/DL 01/22/2024 6:00 PM CDT [facility] HCT 43.6 37.0 - 52.0 % 01/22/2024 6:00 PM CDT [facility] MCV 81.2 78.0 - 100.0 FL 01/22/2024 6:00 PM CDT [facility] MCH 28.9 27.0 - 31.0 PG 01/22/2024 6:00 PM CDT [facility] MCHC 35.6 33.0 - 36.0 G/DL 01/22/2024 6:00 PM CDT [facility] RDW 17.0(H) 11.5 - 14.5 % 01/22/2024 6:00 PM CDT [facility] PLT 81(L) 150 - 350 x10'3/uL 01/22/2024 6:00 PM CDT [facility] MPV 10.1 7.4 - 10.4 FL 01/22/2024 6:00 PM CDT [facility] DIFFERENTIAL TYPE AUTOMATED DIFFERENTIAL 01/22/2024 6:01 PM CDT [facility] SEG NEUTROPHILS 70.1 % 6:01 PM CDT [facility] LYMPHOCYTES 15.5 % 01/22/2024 6:01 PM T [facility] MONOCYTES 10.4 % 01/22/2024 6:01 PM CDT [facility] EOSINOPHILS 3.1 % 01/22/2024 6:01 PM CDT [facility] BASOPHILS 0.7 % 01/22/2024 6:01 PM CDT [facility] IMMATURE GRANS % 0.2 % 01/22/20 6:01 PM CDT [facility] ABS. NEUTROPHILS 2.89 1.60 - 8.30 x10'3/uL 01/22/2024 6:01 PM CDT [facility] ABS. LYMPHOCYTES 0.64(L) 0.80 - 4.70 x10'3/uL 01/22/2024 6:01 PM CDT [facility] ABS. MONOCYTES 0.43 0.00 - 1.50 x10'3/uL 01/22/2024 6:01 PM CDT [facility] ABS. EOSINOPHILS 0.13 0.00 - 0.40 x10'3/uL 01/22/2024 6:01 PM CDT [facility] ABS. BASOPHILS 0.03 0.00 - 0.20 x10'3/uL 01/22/2024 6:01 PM CDT [facility] ABS. IMMATURE GRANULOCYTES 0.01 0.00 - 0.03 x10'3/uL 01/22/2024 6:01 PM T [facility] ABS. NUCLEATED RBC'S 0.00 0.00 - 0.01 x10'3/uL 01/22/2024 6:01 PM T [facility] NRBC % 0.0 % 01/22/2024 6:01 PM T [facility] 01/22/2024 5:47 PM CDT Cody Hayden FACILITIES MAINTENANCE TECHNICIAN LABORATORY Final Resul t Performing Organization Address City/[facility]/ZIP Co de Phone Number [facility] [address] [place] [address], [phone] * (ABNORMAL) POCT glucose (01/22/2024 4:23 PM CDT) GLUCOSE POC 352(H) 70 - 109 01/22/2024 5:58 PM CDT [facility] 01/22/2024 4:23 PM CDT Riddhi Domínguez DO POCT ORDERABLES - DEVICE F inal Result Performing Organization Address [facility] Co de Phone Number [facility] [address] [place] [address], [phone] * (ABNORMAL) URINALYSIS (01/22/2024 3:53 PM CDT) COLOR (U) LIGHT YELLOW 01/22/2024 4:02 PM CDT [facility] TRANSPARENCY CLEAR 01/22/2024 4:02 PM CDT [facility] SPECIFIC GRAVITY (U) 1.039(H) 1.002 - 1.035 01/22/2024 4:02 PM CDT [facility] U PH 5.5 5 - 8 01/22/2024 4:02 PM CDT [facility] PROTEIN RANDOM (U) NEGATIVE NEGATIVE 01/22/2024 4:02 PM CDT [facility] GLUCOSE (U) ABOVE MEASUREMENT RANGE(A) NEGATIVE MG/DL 01/22/2024 4:02 PM CDT [facility] KETONES MG/DL (U) NEGATIVE NEGATIVE 01/22/2024 4:02 PM CDT [facility] BILIRUBIN (U) NEGATIVE NEGATIVE 01/22/2024 4:02 PM CDT [facility] BLOOD (U) NEGATIVE NEGATIVE 01/22/2024 4:02 PM CDT [facility] NITRITES NEGATIVE NEGATIVE 01/22/2024 4:02 PM CDT [facility] UROBILINOGEN NORMAL 0 - 1 EU/DL 01/22/2024 4:02 PM CDT [facility] LEUKOCYTES (U) NEGATIVE NEGATIVE 01/22/2024 4:02 PM CDT [facility] RBC/HPF <1 0 - 3 /HPF 01/22/2024 4:02 PM CDT [facility] WBC/HPF <1 0 - 6 /HPF 01/22/2024 4:02 PM CDT [facility] BACTERIA (U) NONE /HPF 01/22/2024 4:02 PM CDT [facility] URINE SPECIMEN OBTAINED BY CLEAN CATCH PROCEDURE / Unknown 01/22/2024 3:53 PM CDT us Riddhi Domínguez DO URINE ORDERABLES Final Res ult [facility] [address] [place] [address], [phone] * CULTURE, URINE (01/22/2024 3:53 PM CDT) SPEC DESCRIPTION URINE CLEAN CATCH 01/22/2024 3:53 PM CDT [facility] SPECIAL REQUESTS NO SPECIAL REQUEST 01/22/2024 3:53 PM CDT [facility] CULTURE RESULT FEW CONTAMINANTS 01/03 8:29 AM CDT [facility] URINE SPECIMEN OBTAINED BY CLEAN CATCH PROCEDURE / Unknown 01/22/2024 3:53 PM CDT 01/22/2024 3:59 PM CDT us Riddhi Domínguez DO MICROBIOLOGY - GENERAL ORD ERABLES Final Result [facility] [address] [place] [address], [phone] documented in this encounter Visit Diagnoses Diagnosis Abdominal pain- Primary Abdominal pain, unspecified site 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) Other chronic nonalcoholic liver disease Diabetes (CMS/HCC HHS/HCC) S/P TIPS (transjugular intrahepatic portosystemic shunt) Other postprocedural status documented in this encounter Administered Medications Inactive Administered Medications - up to 3 most recent administrations Medication Order MAR Action Action Date Dose Rate Site famotidine (PEPCID) tablet 20 mg 20 mg, Oral, Once, 1 dose, On Thu01/22/24 at 2330 Given 01/22/2024 11:57 PM CDT 20 mg morphine injection 2 mg 2 mg, Intravenous, Once, 1 dose, On Thu01/22/24 at 2315 Given 01/22/2024 11:55 PM CDT 2 mg morphine injection 4 mg 4 mg, Intravenous, Once, 1 dose, On Thu01/22/24 at 1845 Given 01/22/2024 7:59 PM CDT 4 mg normal saline 0.9 % flush 3-10 mL 3-10 mL, Intravenous, Every 8 hours, First dose on Thu01/22/24 at 1730, Until Discontinued normal saline 0.9 % flush 3-10 mL 3-10 mL, Intravenous, As needed, Line care, Starting on Thu01/22/24 at 1726, Until 01/23/24 at 0356 ondansetron (ZOFRAN) injection 4 mg 4 mg, Intravenous, Once, 1 dose, On Thu01/22/24 at 2000, IV push over 2-5 minutes. Given 01/22/2024 7:58 PM CDT 4 mg ondansetron (ZOFRAN) injection 4 mg 4 mg, Intravenous, Once, 1 dose, On 01/23/24 at 0015, IV push over 2-5 minutes. Given 01/23/2024 12:08 AM CDT 4 mg documented in this encounter Active and Recently Administered Medications Times are shown in CDT. Scheduled Medication Order 01/21/2024 01/22/2024 01/23/2024 famotidine (PEPCID) tablet 20 mg (COMPLETED) 20 mg, Oral, Once, 1 dose, On Thu01/22/24 at 2330 2357 (Given - Provider: Kevin Garcia RN) morphine injection 2 mg (COMPLETED) 2 mg, Intravenous, Once, 1 dose, On Thu01/22/24 at 2315 2355 (Given - Provider: Kevin Garcia RN) morphine injection 4 mg (COMPLETED) 4 mg, Intravenous, Once, 1 dose, On Thu01/22/24 at 1845 1959 (Given - Provider: Nury Morales RN) normal saline 0.9 % flush 3-10 mL 3-10 mL, Intravenous, Every 8 hours, First dose on Thu01/22/24 at 1730, Until Discontinued 1805 (Not Given - Provider: Saira Gramajo RN - Reason: Patient already took) 0009 (Not Given - Provider: Kevin Garcia RN - Reason: Patient already took) ondansetron (ZOFRAN) injection 4 mg (COMPLETED) 4 mg, Intravenous, Once, 1 dose, On Thu01/22/24 at 2000, IV push over 2-5 minutes. 1957 (Given - Provider: Nury Morales RN) ondansetron (ZOFRAN) injection 4 mg (COMPLETED) 4 mg, Intravenous, Once, 1 dose, On 01/23/24 at 0015, IV push over 2-5 minutes. 0008 (Given - Provid er: Kevin Garcia RN) PRN Medication Order 01/21/2024 01/22/2024 01/23/2024 normal saline 0.9 % flush 3-10 mL 3-10 mL, Intravenous, As needed, Line care, Starting on Thu01/22/24 at 1726, Until 01/23/24 at 0356 documented in this encounter Care Teams Art Museum Aide Relationship Specialty Start Date End Date Braydon Pavon PA [address] [place] [address] PCP - General PHYSICIAN VENDING MACHINE REPAIRER 03/02/19 documented as of this encounter
--- OUTSIDE RECORDS SUMMARY | 2024-04-19 22:43 | XMS_ITS | Encounter Summary ---
Author Organization [facility] Address [address] [place] [address]. [place] [address] [place] [address] Care Team Providers Care Assembler Brazer Name Role Phone Unavailable Primary Care Provider Unavailabl e Encounter Details Date Type Department Care Team (Latest Contact Info) Description 11/16/2017 Abstract [facility] Social History Tobacco Use Types [...] st Contact Info) Description 05/10/2024 11:40 AM TYPESETTER APPRENTICE Office Visit [facility] Diabetes and Endocrinology - [address] [phone] Eva Power MD [address] [place] [phone] documented as of this encounter Visit Diagnoses Not on filedocumented in this encounter
--- OUTSIDE RECORDS SUMMARY | 2024-04-19 22:43 | XMS_ITS | Encounter Summary ---
Author Organization [facility] Address [address] [place] [address]. [place] [address] [place] [address] Care Team Providers Care Beater Room Supervisor Name Role Phone Braydon Pavon Primary Care Provider [phone] Encounter Details Date Type Department Care Team (Latest Contact Info) Description 11/11/2020 Travel Social History Tobacco Use Types Packs/Day [...] have Coronavirus / COVID-19? No / Unsure 11/11/2020 11:11 PM CDT documented as of this encounter Plan of Treatment Upcoming Encounters Date Type Department Care Team (Late st Contact Info) Description 05/10/2024 11:40 AM NEGATIVE DEVELOPER Office Visit [facility] Diabetes and Endocrinology - [address] [phone] Eva Power MD [address] [place] [phone] documented as of this encounter Visit Diagnoses Not on filedocumented in this encounter Care Teams Beater Room Supervisor Relationship Specialty Start Date End Date Braydon Pavon PA [address] [place] [address] PCP - General PHYSICIAN SLOT MANAGER 03/02/19 documented as of this encounter
--- OUTSIDE RECORDS SUMMARY | 2024-04-19 22:43 | XMS_ITS | Encounter Summary ---
Author Organization [facility] Address [address] [place] [address]. [place] [address] [place] [address] Care Team Providers Care Licensed Real Estate Broker Name Role Phone Unavailable Primary Care Provider Unavailabl e Encounter Details Date Type Department Care Team (Latest Contact Info) Description 01/20/2018 Scan [facility] Sarina Gamez MD Social History [...] st Contact Info) Description 05/10/2024 11:40 AM PEDIATRIC DIETICIAN Office Visit [facility] Diabetes and Endocrinology - [address] [phone] Eva Power MD [address] [place] [phone] documented as of this encounter Visit Diagnoses Not on filedocumented in this encounter
--- OUTSIDE RECORDS SUMMARY | 2024-04-19 22:43 | XMS_ITS | Encounter Summary ---
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) Social [...] Description 02/17/2024 11:59 PM CDT Anesthesia Event [facility] [address] [place] [phone] Pushpa Frey DO [address] [facility] [address] [phone] 05/20/2024 12:30 PM ASSOCIATE ENTERTAINMENT EDITOR Appointment [facility] [address] [place] [phone] Steve Bedolla MD [address] [place] [phone] 06/30/2024 10:30 AM ASSOCIATE ENTERTAINMENT EDITOR Office Visit [facility] [place] [address] [facility] [place] [address] Steve Bedolla MD [address] [place] [address] documented as of this encounter Visit Diagnoses Diagnosis 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
--- OUTSIDE RECORDS SUMMARY | 2024-04-19 22:43 | XMS_ITS | Encounter Summary ---
Author Organization [facility] Address [address] [place] [address]. [place] [address] [place] [address] Care Team Providers Care Last Picker Name Role Phone Braydon Pavon Primary Care Provider [phone] Reason for Visit * Reason Comments Type 2 Diabetes * Consultation/Treatment (Routine) - Closed Specialty Diagnoses / Procedures Referred By Jordan casillas Referred To Contact ENDOCRINOLOGY Diagnoses Follow Up Procedures FOLLOW UP Paul Chanel MD [facility] [address] [place] [address] Phone: tel: fax: Paul Chanel MD [facility] [place] [address] [place] [address] Phone: tel: fax: Referral ID Status Reason Start Date Expiration Date Visits Re quested Visits Authorized [id number] Closed 04/05/2019 04/05/2020 15 15 Encounter Details Date Type Department Care Team (Late st Contact Info) Description 04/05/2019 11:40 AM CLINICAL DIRECTOR Office Visit [facility] Medical Group Diabetes and Endocrinology - [place] [address] [place] [id number] Paul Chanel MD [facility] [place] [address] Type 2 Diabetes Social History Tobacco Use Types Packs/Day Years [...] Sign Reading Time Taken Comments Blood Pressure 132/72 04/05/2019 11:41 AM CLINICAL DIRECTOR Pulse 102 04/05/2019 11:41 AM CLINICAL DIRECTOR Temperature - - Respiratory Rate - - Oxygen Saturation - - Inhaled Oxygen Concentration - - Weight 122.5 kg (270 lb) 04/05/2019 11:41 AM CLINICAL DIRECTOR Height 172.7 cm (5' 8 ) 04/05/2019 11:41 AM CLINICAL DIRECTOR Body Mass Index 41.05 04/05/2019 11:41 AM CLINICAL DIRECTOR documented in this encounter Patient Instructions * Patient Instructions* Paul Chanel MD - 04/05/2019 11:40 AM CLINICAL DIRECTOR U-500 R 200 units each meal 3 times a day Start check BG 2/day in am, and before supper You saw Dr. Paul Chanel today in [facility] [place]. It was pleasure to see you today. Please do not hesitate to contact us with additional questions or concerns, you can reach us at [phone] during business hours, or [phone] after hours or weekends. 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 He uses you 500 BD syringes. I asked him to obtain magnifier or have his prefilled syringes for him Start checking BG at least twice a day in the morning and before supper Low-carb diet, avoid sugar containing beverages I would like to see him back in 3 months Diabetes management plan was reviewed with the patient. The patient agrees with the plan. SUBJECTIVE: Camilo Curry presents for a diabetes care f/up accompanied by his . He was last seen more than 2 years ago in December 2016. His A1c was 6.9 at that time. Office Visit on 04/05/2019 Component Date Value Ref Range Status ??? WHOLE BLOOD GLUCOSE 04/05/2019 260* 70 - 100 mg/dL Final ??? HGB A1C 04/05/2019 10.9 Final Interval events: He says his blood sugar have been running very high since he was switched from U-500 R kwik pen to vials. He does not see well the marking on the syringe to dial the right number. Hethinks he injects 160 units 3- 4 times a day with meals. He was seen in the emergency room several times and also hospitalized in [facility] in October 2017 and February 2018 for reasons other than diabetes, but BG were as high as 600 according to the patient. He complains of blurry vision, frequent urination especially at nighttime, shortness of breath withexertion. He stopped using metformin and states it messed up with his stomach . He is using lactulose for hepatic encephalopathy and having loose stools. No weight loss, no foot ulcers. Symptoms reported by the patient include extremity paresthesias,??fatigue,??erectile dysfunction. History of Present Illness: Camilo Curry is being seen for routine follow-up of Diabetes Mellitus 2. Dx with diabetes in 2011, at first well controlled with A1c <7% on metformin, but uncontrolled since dx with liver cirrhosis 2ry to BLAND in 2015. Other medical problems include esophageal varices, hepatic encephalopathy, s/p TIPs. Follows with GI in [place] - [facility]. Bev Ellis ([facility]). A1c 7.7 (September 2016); 8.4 (Feb 2018) HGB A1C (no units) Date Value 04/05/2019 10.9 12/09/2016 6.9 Current treatment includes U-500 R ??and??Metformin HCl??(500 mg BID). Caloric intake composed of 3-4 meals per day (No sugar containing beverages) Disease Course and Complications: He has not been found to have any diabetic eye complications. Renal: CREATININE (MG/DL) Date Value 06/30/2018 0.93 No results found for: MICROALBUMIN Cardiovascular: no coronary artery disease LDL 59 (August 2017) Neurologic: peripheral neuropathy. AST Date Value Ref Range Status 06/30/2018 43 (H) 15 - 37 U/L Final ALT Date Value Ref Range Status 06/30/2018 56 16 - 63 U/L Final TSH 1.59 (November 2015) Cortisol 12.8 (November 2015) PLT (x10'3/uL) Date Value 06/30/2018 88 Review of Systems Constitutional: Positive for malaise/fatigue. Negative for weight loss. HENT: Negative for hearing loss. Eyes: Positive for blurred vision. Respiratory: Positive for shortness of breath (with exertion). Negative for cough and wheezing. Cardiovascular: Negative for chest pain, palpitations, claudication and leg swelling. Chest cold like pain Gastrointestinal: Positive for diarrhea. Negative for abdominal pain, blood in stool, constipation and nausea. Genitourinary: Positive for frequency. Negative for dysuria and hematuria. Musculoskeletal: Positive for back pain and joint pain. Skin: Negative for rash. Neurological: Negative for dizziness, weakness and headaches. Endo/Heme/Allergies: Positive for polydipsia. Does not bruise/bleed easily. Psychiatric/Behavioral: Negative for depression. The patient is nervous/anxious and has insomnia. All other systems reviewed and are negative. family history is not on file. Social History Social History Narrative ??? Not on file Current Outpatient Medications on File Prior to Visit Medication Sig ??? ALPRAZolam (XANAX) 1 MG tablet Take 5 mg by mouth. ??? BD INSULIN SYRINGE U-500 31G X 6MM 0.5 ML Misc ??? HUMULIN R 500 UNIT/ML Solution Indications: 160 units TID before meals ??? hydrochlorothiazide 25 MG tablet Take 25 mg by mouth daily. ??? lactulose 20 GM/30ML solution Take 30 mLs by mouth 4 (four) times daily. ??? omeprazole 20 MG capsule Take 1 capsule by mouth. ??? ondansetron 4 MG tablet ??? rifaximin 200 MG tablet Take 550 mg by mouth 2 (two) times daily. ??? TRUE METRIX BLOOD GLUCOSE TEST test strip ??? VENTOLIN HFA 108 (90 Base) MCG/ACT inhaler ??? vitamin D2, ergocalciferol, 59720 UNITS capsule Take 50,000 Units by mouth every 30 (thirty) days. No current facility-administered medications on file prior to visit. Wt Readings from Last 2 Encounters: 04/05/19 122.5 kg (270 lb) 03/02/19 120.2 kg (265 lb) Filed Vitals: 04/05/19 1141 BP: 132/72 Pulse: 102 Weight: 122.5 kg (270 lb) Height: 5' 8 (1.727 m) Body mass index is 41.05 kg/m??. Physical Exam Constitutional: He is oriented to person, place, and time. He appears well- developed and well-nourished. No distress. Eyes: Conjunctivae and EOM are normal. Neck: No thyromegaly present. Cardiovascular: Normal rate, regular rhythm and normal heart sounds. No murmur heard. Pulmonary/Chest: Effort normal and breath sounds normal. No respiratory distress. He has no wheezes. Abdominal: Soft. Bowel sounds are normal. He exhibits no distension. Musculoskeletal: Normal range of motion. He exhibits no edema, tenderness or deformity. Lymphadenopathy: He has no cervical adenopathy. Neurological: He is alert and oriented to person, place, and time. No cranial nerve deficit. Skin: Skin is warm and dry. No rash noted. He is not diaphoretic. No erythema. No pallor. Psychiatric: He has a normal mood and affect. His behavior is normal. Judgment and thought content normal. Patient Active Problem List Diagnosis ??? Diabetes mellitus, type 2 (CMS/HCC) ??? Esophageal varices (CMS/HCC) ??? Hepatic encephalopathy (CMS/HCC) ??? Essential hypertension ??? 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) ??? Morbid obesity (CMS/HCC) ??? TRACY (obstructive sleep apnea) ??? Thrombocytopenia ([facility]) ??? Type 2 diabetes mellitus with hyperglycemia, with long-term current use of insulin ([facility]) Problem List Items Addressed This Visit Type 2 diabetes mellitus with hyperglycemia, with long-term current use of insulin ([facility]) - Primary Relevant Medications TRUE METRIX BLOOD GLUCOSE TEST test strip BD INSULIN SYRINGE U-500 31G X 6MM 0.5 ML Misc HUMULIN R 500 UNIT/ML Solution Other Relevant Orders GLUCOSE BLOOD, MONITOR DEVICE (Completed) HEMOGLOBIN, GLYCOSYLATED (Completed) Counseling: The patient was counseled regarding diagnostic results, instructions for management, risk factor reductions, prognosis, risks and benefits of treatment options and importance of compliance with treatment. Diabetes management was discussed with attention to - importance of regular BG checks and goals of glycemic control - prevention, recognition and management of hypoglycemia - our instituted therapies, mechanism of action and adverse effects - meal planning - importance of foot care and regular eye exams - our monitoring and f/up plan Barriers of diabetes self-management assessed 25 minutes was spent in direct patient consultation and the majority of that time (>50%) was spent on counseling and coordination of care. An After Visit Summary was printed and given to the patient. PAUL CHANEL ICAL DIRECTOR documented in this encounter Plan of Treatment Upcoming Encounters Date Type Department Care Team (Late st Contact Info) Description 05/10/2024 11:40 AM CLINICAL DIRECTOR Office Visit [facility] Medical Group Diabetes and Endocrinology - [address] [phone] Paul Chanel MD [address] [place] [address] documented as of this encounter Procedures Procedure Name Priority Date/Time Associated Diagnosis Comments HEMOGLOBIN, GLYCOSYLATED Routine 04/05/2019 Type 2 diabetes mellitus with hyperglycemia, with long-term current use of insulin ([facility]) GLUCOSE BLOOD, MONITOR DEVICE Routine 04/05/2019 Type 2 diabetes mellitus with hyperglycemia, with long-term current use of insulin ([facility]) documented in this encounter Results * HEMOGLOBIN, GLYCOSYLATED (04/05/2019) HGB A1C 10.[address] 04/05/2019 us Paul Chanel MD LABORATORY Final Result Performing Organization Address [facility] Co de Phone Number [address], [place] [phone], * (ABNORMAL) GLUCOSE BLOOD, MONITOR DEVICE (04/05/2019) GLUCOSE WHOLE BLOOD 260(A) 70 - 100 mg/dL [address] 04/05/2019 Paul Chanel MD LABORATORY Final Result Performing Organization Address [facility] de Phone Number [address], [address] [address], [place] [phone] documented in this encounter Visit Diagnoses Diagnosis Type 2 diabetes mellitus with hyperglycemia, with long-term current use of insulin ([facility])- Primary documented in this encounter Care Teams Last Picker Relationship Specialty Start Date End Date Braydon Pavon PA [address] [place] [address] PCP - General PHYSICIAN LAYOUT OPERATOR 03/02/19 documented as of this encounter
--- OUTSIDE RECORDS SUMMARY | 2024-04-19 22:43 | XMS_ITS | Encounter Summary ---
Author Organization [facility] Address [address] [place] [address]. [place], [place] [address] [place] [address] Care Team Providers Care Work Order Detailer Name Role Phone Unavailable Primary Care Provider Unavailabl e Encounter Details Date Type Department Care Team (Latest Contact Info) Description 09/25/2017 Abstract [facility] Medical Group Social History Tobacco Use Types Packs/Day Years Used Date Smoking Tobacco: Never Assessed Sex and Gender Information Value Date Recorded Sex Assigned at Not on file Legal Sex Male 9:36 PM CDT Gender Identity Not on file Sexual Orientation Straight 03/02/2019 9: 44 PM CDT documented as of this encounter Progress Notes * Generic Conversion MD Franco - 09/25/2017 4:54 PM CDT Message Recorded as Task Date: 09/24/2017 12:56 PM, Created By: Felicitas Espinoza Task Name: Call Back Assigned To: [facility] Nurse Team Regarding Patient: Camilo Curry, Status: In Progress Comment: Felicitas Espinoza - 24 Sep 2017 12:56 PM TASK CREATED Caller: Mayra, Spouse; General Medical Question; (Day) Has a question about patients insulin. Chantelle Espinoza - 24 Sep 2017 3:12 PM TASK EDITED Spoke with patient. Patient has not been seen in office since December of 2016, several cancels and NCNS. Patient states he needs a PA for his Humalin 500 insulin and needs new testing supplies and meter, True Matrix brand, sent to pharmacy[facility] in [place]. I have called pharmacy and they are going to send PA information via fax, PCN, BIN, RX numbers for PA to be started, waiting for fax. Patient states that he has been too sick to come in and see Dr. Power. I have informed him that he needs to set up appointment and he states he is ok setting up appointment but needs to figure his insulin and supply situation out first. Dr. Power, ok to start PA?? Please send this task back to us for further instructions. Thanks! Eva Power - 25 Sep 2017 1:22 AM TASK REPLIED TO: Previously Assigned To Eva Power to do PA on insulin and test supplies. Eva Power - 25 Sep 2017 1:22 AM TASK REASSIGNED: Previously Assigned To [facility] Nurse Team Marry Holm - 25 Sep 2017 12:23 PM TASK EDITED Prior Auth initiated. Marry Holm - 25 Sep 2017 1:23 PM TASK EDITED [facility] and the insurance company was also call at [phone] and it was explained that this was an urgent request as patient waited until he was out of insulin to contact us. Marry Holm - 25 Sep 2017 1:23 PM TASK IN PROGRESS Signatures Electronically signed by : Marry Holm R.N.; Oct 06 2017 4:55PM INSPECTOR MATERIALS AND PROCESSES (Author) documented in this encounter Plan of Treatment Upcoming Encounters Date Type Department Care Team (Late st Contact Info) Description 05/10/2024 11:40 AM INSPECTOR MATERIALS AND PROCESSES Office Visit [facility] Medical Group Diabetes and Endocrinology - [address] [phone] Eva Power MD [address] [place] [address] documented as of this encounter Visit Diagnoses Not on filedocumented in this encounter
--- OUTSIDE RECORDS SUMMARY | 2024-04-19 22:43 | XMS_ITS | Encounter Summary ---
Author Organization [facility] Address [address] [place] [address]. [place] [address] [place] [address] Care Team Providers Care Ed Physicians Name Role Phone Braydon Pavon Primary Care Provider [phone] Reason for Visit * Reason Onset Date Comments Refill Request 08/04/2019 Encounter Details Date Type Department Care Team (Late st Contact Info) Description 08/04/2019 Telephone [facility] Medical Group Diabetes and Endocrinology - [address] [phone] Eva Power MD [address] [place] [address] Refill Request Social History Tobacco Use Types [...] as of this encounter Progress Notes * Peri Carmichael LPN - 08/04/2019 2:32 PM CDT Spoke with patient, his PCP already refilled. He is back to using pens. Using onetouch ultra meter now. Med list updated * Debbie Serrato - 08/04/2019 9:53 AM CDT Patient calling in requesting a refill on the following: QuickPen QuickPen [place] Send to [facility] documented in this encounter Plan of Treatment Upcoming Encounters Date Type Department Care Team (Late st Contact Info) Description 05/10/2024 11:40 AM PROOF TESTER Office Visit [facility] Medical Group Diabetes and Endocrinology - [address] [phone] Eva Power MD [address] [place] [address] documented as of this encounter Visit Diagnoses Not on filedocumented in this encounter Care Teams Ed Physicians Relationship Specialty Start Date End Date Braydon Pavon PA [address] [place] [address] PCP - General PHYSICIAN PASTRY CHEF 03/02/19 documented as of this encounter
--- OUTSIDE RECORDS SUMMARY | 2024-04-19 22:43 | XMS_ITS | Encounter Summary ---
Author Organization [facility] Address [address] [place] [address]. [place] [address] [place] [address] Care Team Providers Care Paperhanger Assistant Name Role Phone Braydon Pavon Primary Care Provider [phone] Reason for Visit * Reason Onset Date Comments Medication Problem 09/06/2019 Encounter Details Date Type Department Care Team (Late st Contact Info) Description 09/06/2019 Telephone [facility] Medical Group Diabetes and Endocrinology - [address] [phone] [place] [address] [place] [address] Medication Problem Social History Tobacco Use Types [...] Progress Notes * Peri Carmichael LPN - 09/06/2019 2:49 PM CDT Rx transmitted as requested * [place] Calderon - 09/06/2019 2:37 PM CDT Patient states insurance will only pay for 200 test strips. He is requesting new script be sent to [facility] in [facility]. Callback # [phone] documented in this encounter Plan of Treatment Upcoming Encounters Date Type Department Care Team (Late st Contact Info) Description 05/10/2024 11:40 AM QUALITY IMPROVEMENT COORDINATOR Office Visit [facility] Medical Group Diabetes and Endocrinology - [address] [phone] Eva Power MD [address] [place] [phone] documented as of this encounter Visit Diagnoses Diagnosis Type 2 diabetes mellitus with hyperglycemia, with long-term current use of insulin ([facility])- Primary documented in this encounter Care Teams Paperhanger Assistant Relationship Specialty Start Date End Date Braydon Pavon PA [address] [place] [address] PCP - General PHYSICIAN GLOBAL SALES EXECUTIVE 03/02/19 documented as of this encounter
--- OUTSIDE RECORDS SUMMARY | 2024-04-19 22:43 | XMS_ITS | Encounter Summary ---
Author Organization [facility] Address [address] [place] [address]. [place] [address] [place] [address] Care Team Providers Care Director Of Conservation Name Role Phone Braydon Pavon Primary Care Provider [phone] Encounter Details Date Type Department Care Team (Late Contact Info) Description 05/13/2019 Orders Only [facility] [address] [address] Abi Vidal, [address] [place] [address] Social History Tobacco Use Types Packs/Day Years [...] (Late Contact Info) Description 05/10/2024 11:40 AM EVENT SALES ASSISTANT Office Visit [facility] Medical Group Diabetes and Endocrinology - [address] [phone] Eva Power MD [address] [place] [address] documented as of this encounter Visit Diagnoses Diagnosis Left knee pain- Primary Pain in joint, lower leg documented in this encounter Care Teams Director Of Conservation Relationship Specialty Start Date End Date Braydon Pavon PA [address] [place] [address] PCP - General PHYSICIAN DIRECTOR OF RESTAURANT 03/02/19 documented as of this encounter
--- OUTSIDE RECORDS SUMMARY | 2024-04-19 22:43 | XMS_ITS | Encounter Summary ---
Author Organization [facility] Address [address] [place] [address]. [place] [address] [place] [address] Care Team Providers Care Consumer Services Consultant Name Role Phone Unavailable Primary Care Provider Unavailabl e Encounter Details Date Type Department Care Team (Latest Contact Info) Description 09/30/2017 Abstract [facility] Medical Group Social History Tobacco Use [...] st Contact Info) Description 05/10/2024 11:40 AM CAR SEAT UPHOLSTERER Office Visit [facility] Medical Group Diabetes and Endocrinology - [address] [phone] Eva Power MD [address] [place] [phone] documented as of this encounter Visit Diagnoses Not on filedocumented in this encounter
--- OUTSIDE RECORDS SUMMARY | 2024-04-19 22:43 | XMS_ITS | Encounter Summary ---
Author Organization [facility] Address [address] [place] [address]. [place] [address] [place] [address] Care Team Providers Care Recycling Collections Driver Name Role Phone Braydon Pavon Primary Care Provider [phone] Reason for Visit * Reason Onset Date Comments Reschedule 03/30/2024 Encounter Details Date Type Department Care Team (Late st Contact Info) Description 03/30/2024 Telephone [facility] Medical Group Diabetes and Endocrinology - [address] [phone] Eva Power MD [address] [place] [address] Reschedule Social History Tobacco Use Types Packs/Day Years [...] as of this encounter Progress Notes * Huan Aguilar - 03/30/2024 11:47 AM CST Caller name: Mayra, Spouse Call back/ext. #: [phone] Call details: Rescheduled Appt: Previous Date: 05/20/2024 Fri 1:40 pm New Date: 05/10/2024 Tu 11:40 am OR PYTHON DEVELOPER documented in this encounter Plan of Treatment Upcoming Encounters Date Type Department Care Team (Late st Contact Info) Description 05/10/2024 11:40 AM SENIOR PYTHON DEVELOPER Office Visit [facility] Medical Group Diabetes and Endocrinology - [address] [phone] Eva Power MD [address] [place] [address] documented as of this encounter Visit Diagnoses Not on filedocumented in this encounter Care Teams Recycling Collections Driver Relationship Specialty Start Date End Date Braydon Pavon PA [address] [place] [address] PCP - General PHYSICIAN WATCH DIAL STONER 03/02/19 documented as of this encounter
--- OUTSIDE RECORDS SUMMARY | 2024-04-19 22:43 | XMS_ITS | Encounter Summary ---
Author Organization [facility] Address [facility]3 [facility] [place] [address] Care Team Providers Care Pallet Sorter Name Role Phone Braydon Pavon Primary Care Provider [phone] Reason for Visit * Reason Comments Cirrhosis * Evaluate & Treat (Routine) - Closed Specialty Diagnoses / Procedures Referred By Jordan casillas Referred To Contact Gastroenterology Diagnoses End stage liver disease (HCC) end stage liver disease Procedures MI OFFICE/OUTPT VISIT,JILLIAN ZAMORA IV, James, PA [address] [place] [address] Aleksandr Fink MD [address] [place] [address] Referral ID Status Reason Start Date Expiration Date Visits Re quested Visits Authorized [id number] Closed 05/19/2018 11/15/2018 1 1 Encounter Details Date Type Department Care Team (Late st Contact Info) Description 06/02/2018 11:00 AM FUR IRONER Office Visit [facility] - [address] [place] [phone] Aleksandr Fink MD [facility] [place] [address] 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); S/P TIPS (transjugular intrahepatic portosystemic shunt); Secondary esophageal varices with bleeding (HCC); Type 2 diabetes mellitus with complication, with long-term current use of insulin (HCC); Nonalcoholic steatohepatitis (BLAND); Thrombocytopenia (HCC); Cirrhosis of liver without ascites, unspecified hepatic cirrhosis type (HCC); Liver failure without hepatic coma, unspecified chronicity (HCC) Social History Tobacco Use Types Packs/Day [...] Sign Reading Time Taken Comments Blood Pressure 146/78 06/02/2018 11:01 AM FUR IRONER Pulse 100 06/02/2018 11:01 AM FUR IRONER Temperature 36.7 ??C (98 ??F) 06/02/2018 11:01 AM FUR IRONER Respiratory Rate - - Oxygen Saturation 98% 06/02/2018 11:01 AM FUR IRONER Inhaled Oxygen Concentration - - Weight 124.3 kg (274 lb) 06/02/2018 11:01 AM FUR IRONER Height 172.7 cm (5' 8 ) 06/02/2018 11:01 AM FUR IRONER Body Mass Index 41.66 06/02/2018 11:01 AM FUR IRONER documented in this encounter Patient Instructions * Patient Instructions* Olivia Fink MD - 06/02/2018 11:56 AM FUR IRONER You should talk to PCP about pneumonia vaccine You are scheduled for a(n) U/S at Outpatient Services on 06-10-2018, at 08:00 A.M. Please arrive at07:30 A.M. Do not eat or drink 6 HOURS before your procedure. Outpatient Services at [facility] is an outpatient diagnostic and treatment center dedicated to one simple goal: superior customer service. Our latest innovation in same-day healthcare services extends beyond sophisticated and advanced equipment. Address to Outpatient Servics: [address] [place] [address] Park in Outpatient Service Parking Lot and enter side of building. Please remember to bring you insurance card(s) and a form of photo identification such as a jeep driver's license. *If you have any questions, concerns or need to cancel and reschedule please call the scheduling department at [phone]. IRONER documented in this encounter Progress Notes * Olivia Fink MD - 06/02/2018 11:35 AM CST Images from the original note were not included. Hepatology clinic new patient visit: Subjective: 47 y.o. yo pt with Cirrhosis. Referring physician: Dr. Braydon Pavon PA Chief Complaint Patient presents with ??? Cirrhosis Pt was following with [facility], he cant follow up with them as they done [place] anymore He was diagnosed with BLAND cirrhosis for the first time in August 2015 when he had variceal bleeding, he had 2-3 bleedings and TIPS was done in 11/2015 Since the TIPS he reports occasional dark stool and some blood on the bed sheets. His last EGD was in 05/2016 He had a TIPS US that showed some new stenosis but no ascites He has HE and is on lactulose and rifaximin, says his confusion is not well controlled He has a PMHx of IDDM, TRACY, bipolar spinal stenosis and chronic back pain. Now developing leg weakness He was on narcotics which were weaned off and since then he is having more pain and secondary depression Pt reports fatigue and besides his confusion, he gained about 70 lbs in the last 2 years because ofdepression, denies any change in abdominal girth He doesn't use any IV drugs in the past He doesn't drink alcohol and has never been a regular drinker Other ROS: A 12-point ROS was performed in detail with the patient and is negative other than above. Past Medical History: Past Medical History: Diagnosis Date ??? Anxiety ??? Chronic back pain ??? Depression ??? Diabetes ??? Liver cirrhosis ??? Mental health problem ??? Sleep apnea Active Problem List: Patient Active Problem List Diagnosis Date Noted ??? 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 06/02/2018 Priority: Not Prioritized ??? Secondary esophageal varices 06/02/2018 Priority: Not Prioritized ??? Type 2 diabetes mellitus with complication, with long-term current use of insulin 05/24/2018 Priority: Not Prioritized Past surgical history: Past Surgical History: Procedure Laterality Date ??? ENDOSCOPY, UPPER ??? IR TIPS PROCEDURE Social history: Alcohol: no Drugs: no Smoking: no Lives with Social History Social History ??? Marital status: [...] ??? Not on file Social History Narrative Allergies: Allergies Allergen Reactions ??? Pcn [Penicillins] Shortness of Breath ??? Duloxetine Urticaria ??? Iv Contrast [Contrast-Iodinated Agents For Ct/Other] Rash ??? Nexium [Esomeprazole] Urticaria ??? Sulfa Drugs Urticaria ??? Azactam [Aztreonam In Dextrose] Urticaria ??? Aztreonam Urticaria ??? Ciprofloxacin Urticaria ??? Erythromycin Urticaria ??? Octreotide Urticaria Family history: Family History Problem Relation Age of Onset ??? Cancer - Other Mother ??? Cancer - Other Father ??? Cancer - Other Maternal Grandmother ??? Cancer - Other Maternal Grandfather ??? Cancer - Other Paternal Grandmother ??? Cancer - Other Paternal Grandfather No FHx of liver disease or liver cancer Medications: Outpatient Encounter Prescriptions as of 06/02/2018 Medication Sig Dispense Refill ??? acetaminophen-codeine (TYLENOL #3) 300-30 MG tablet ??? ALPRAZolam (XANAX) 0.5 MG [...] mouth once daily 30 tablet 4 ??? lactulose (CHRONULAC) 10 GM/15ML solution Take 30 mL by mouth 4 times daily ??? metFORMIN ER 24hr (GLUCOPHAGE XR) 500 MG tablet Take 2 tablets by mouth daily with dinner 60 tablet 5 ??? omeprazole (PRILOSEC) 20 MG capsule ??? ondansetron (ZOFRAN) 4 MG tablet ??? ONETOUCH ULTRA TEST STRIPS test strip Use 1 strip 3 times daily 100 strip 5 ??? XIFAXAN 550 MG tablet No facility-administered encounter medications on file as of 06/02/2018. Objective: Physical exam: BP 146/78 Pulse 100 Temp 98 ??F (36.7 ??C) (Oral) Ht 1.727 m (5' 8 ) Wt 124.3 kg (274 lb) SpO2 98% BMI 41.66 kg/m2 General appearance: obese, alert, oriented, pleasant, in NAD Skin: Skin color, texture, turgor normal, no rashes, no spider angiomas Neck: Normal range of motion Eyes: Anicteric sclera Lungs: CTAB, no wheezing or rhonchi Heart: RRR Abdomen: Soft, RUQ point tenderness, non distended. Bowel sounds normal. No masses, organomegaly Neuro: No asterixis, moving all extremities, tremors Psychiatric: Has a normal mood and affect. Speech is normal. Extremities: No LE edema, or skin discoloration. Good capillary refill. Labs: No results for input(s): SODIUM, POTASSIUM, CHLORIDE, CO2, BUN, CREATININE, GLUCOSE, CALCIUM, ALBUMIN, ALKPHOS, ALT, AST, TBIL, TBILI, DBILI, TPROT, EGFR in the last 93840 hours. No results for input(s): WBC, HGB, HCT, PLTCOUNT in the last 71903 hours. No results for input(s): INR in the last 78264 hours. No results for input(s): AFP in the last 77842 hours. Invalid input(s): ALPHA-FETOPROTEIN INR: 1.2 Hepatitis panel: @RESUFAST(HAV,HEPAIGM,HEPBIGM,HEPBCAB,HBEAG,HEPCAB,HCVAB)@ @RESUFAST(Viralload,HCVRNA)@ Radiology: Liver US 02/02/2018: 1. Sonographic evidence of hepatic steatosis and cirrhosis. 2. Patent functioning TIPS. Compared to the previous exam dated 08/28/2017, there has been marked interval decrease in the TIPS stent peak velocity (183 to 113 cm/sec). However, there is no significant change since the baseline examination on 12/24/2015 (peak velocity was 147 cm/sec). Persistent antegrade flow in the left and right portal veins, away from the TIPS. Recommend continued attention on follow-up. Assessment: #1: Decompensated BLAND cirrhosis c/b: #2: Bleeding EV, s/p TIPS in 11/2015 #3: Hepatic encephalopathy, controlled on lactulose and rifaximin #4: Thrombocytopenia #5: IDDM, TRACY, bipolar, spinal stenosis and chronic back pain. Plan: Counseled pt about cirrhosis and its complications. His complication appear to be controlled and his MELD is low to initiate OLT evaluation Told pt that he will need to loose weight and the current weight would make him ineligible for liver transplant Get a liver US for HCC screening and follow up TIPS in August Continue lactulose and rifaximin Get a pneumonia vaccine with PCP RTC in 6 months Orders Placed This Encounter Procedures ??? US ABDOMEN LIMITED ??? CBC WITH DIFFERENTIAL ??? PT-INR Gus Fink MD Attending physician Division of Hepatology June 02, 2018 IRONER documented in this encounter Plan of Treatment Upcoming Encounters Date Type Department Care Team (Late st Contact Info) Description 02/17/2024 11:59 PM CDT Anesthesia Event [facility] [address] [place] [phone] Pushpa Frey DO [address] [facility] [address] [phone] 05/20/2024 12:30 PM FUR IRONER Appointment [facility] [address] [place] [phone] Steve Bedolla MD [address] [place] [phone] 06/30/2024 10:30 AM FUR IRONER Office Visit [facility] [place] [address] [place] [address], [place] [phone] Steve Bedolla MD [address] [place] [phone] Scheduled Orders Name Type Priority Associated Diagnoses Orde r Schedule CBC WITH DIFFERENTIAL Lab Routine 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) Expected: 06/03/2018 (Approximate), Expires: 11/29/2018 PT-INR Lab STAT 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) Ordered: 06/02/2018 documented as of this encounter Visit Diagnoses Diagnosis 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)- Primary Other chronic nonalcoholic liver disease S/P TIPS (transjugular intrahepatic portosystemic shunt) Other postprocedural status Secondary esophageal varices with bleeding (HCC) Esophageal varices with bleeding in diseases classified elsewhere Type 2 diabetes mellitus with complication, with long-term current use of insulin (HCC) Nonalcoholic steatohepatitis (BLAND) Other chronic nonalcoholic liver disease Thrombocytopenia (HCC) Thrombocytopenia, unspecified Cirrhosis of liver without ascites, unspecified hepatic cirrhosis type (HCC) Liver failure without hepatic coma, unspecified chronicity (HCC) documented in this encounter Care Teams Pallet Sorter Relationship Specialty Start Date End Date Braydon Pavon PA [address] [place] [address] PCP - General Physician Certified Retinal Angiographer 05/19/18 10/03/18 documented as of this encounter
--- OUTSIDE RECORDS SUMMARY | 2024-04-19 22:43 | XMS_ITS | Encounter Summary ---
Author Organization [facility] Address [facility] [place] [address] Care Team Providers Care Ed Special Education Teacher Name Role Phone Braydon Pavon Primary Care Provider [phone] Reason for Visit * Reason Comments Establish Care DIABETES Encounter Details Date Type Department Care Team (Late st Contact Info) Description 05/24/2018 8:00 AM NON DESTRUCTIVE TESTING SPECIALIST Office Visit [facility] [address] [facility] [place] [address] Edmond Choi MD [address] [facility] [address] [facility] [place] [address] Type 2 diabetes mellitus with complication, with long-term current use of insulin (HCC) (Primary Dx) Social History Tobacco Use Types Packs/Day Years Used Date Smoking Tobacco: Never Smokeless Tobacco: Never Alcohol Use Standard Drinks/Week Comments No 0 (1 standard drink = 0.6 oz pur e alcohol) Sex and Gender Information Value Date Recorded Sex Assigned at Not on file Gender Identity Not on file Sexual Orientation Not on file documented as of this encounter Last Filed Vital Signs Vital Sign Reading Time Taken Comments Blood Pressure 152/89 05/24/2018 8:17 AM NON DESTRUCTIVE TESTING SPECIALIST Pulse 102 05/24/2018 8:17 AM NON DESTRUCTIVE TESTING SPECIALIST Temperature 36.6 ??C (97.9 ??F) 05/24/2018 8:17 AM CS T Respiratory Rate - - Oxygen Saturation 96% 05/24/2018 8:17 AM NON DESTRUCTIVE TESTING SPECIALIST Inhaled Oxygen Concentration - - Weight 125.2 kg (276 lb) 05/24/2018 8:17 AM NON DESTRUCTIVE TESTING SPECIALIST Height 172.7 cm (5' 8 ) 05/24/2018 8:17 AM NON DESTRUCTIVE TESTING SPECIALIST Body Mass Index 41.97 05/24/2018 8:17 AM NON DESTRUCTIVE TESTING SPECIALIST documented in this encounter Patient Instructions * Patient Instructions* Edmond Choi MD - 05/24/2018 8:52 AM NON DESTRUCTIVE TESTING SPECIALIST U500 insulin every 6 hours:- 150 units in AM 150 units in afternoon 150 units in evening 100 units at bedtime Take metformin ER 1000 mg in evening Start Hydrochlorothiazide 25 mg in AM DESTRUCTIVE TESTING SPECIALIST documented in this encounter Progress Notes * Edmond Choi MD - 05/24/2018 8:19 AM CST Subjective: Camilo Curry is a 47 y.o. male who presents for an initial evaluation of Type 2 diabetes mellitus. Developed prediabetes, but after receiving steroids in back for spinal stenosis, he progressed to diabetes in 2011. Was seeing an emergency department technician in [place] but insurance changed and he is here for his initial visit. He has been on metformin, DPP4, glipizide, lantus for his diabetes. It was well controlled in past but not now. A1c was 9.3% in 12/2017 and is 8.2 today. He is now on U500 insulin 170 u TID (takes more sometimes). Did not bring his meter. Says that BGTs are ~300 AM and PM. C/o fatigue, polyuria C/o tingling and burning pain in legs and feet. Not on neuropathy drugs. He injects insulin in abdomen and thighs. Does not encounter scar tissue resistance. No known renopathy or nephropathy He has BLAND cirrhosis, s/p gastric variceal banding, s/p TIPS 11/2015. Transferring liver care from [place] to [facility] due to insurance. Spinal stenosis: Disabled. On tylenol/codiene. Used to have steroid injections in back but they do not work anymore. No steroids injections are planned in the near future. Not planning back surgery. HTN has been high for last one month. Did not have HTN in past. Has never been on anti-hypertensives. Past Medical History: Diagnosis Date ??? Anxiety ??? Chronic back pain ??? Depression ??? Diabetes ??? Liver cirrhosis ??? Mental health problem ??? Sleep apnea Family History Problem Relation Age of Onset ??? Cancer - ovarian. at age 23 Mother ??? Cancer - throat. in a car accidnet Father ??? Cancer - Other Maternal Grandmother ??? Cancer - Other Maternal Grandfather ??? Cancer - Other Paternal Grandmother ??? Cancer - Other Paternal Grandfather Current Outpatient Prescriptions Medication Sig Dispense Refill ??? acetaminophen-codeine (TYLENOL #3) 300-30 MG tablet ??? ALPRAZolam (XANAX) 0.5 MG tablet Take 0.5 mg by mouth 3 times daily as needed for Anxiety ??? HUMULIN R U-500 KWIKPEN 500 UNIT/ML SOPN pen ??? omeprazole (PRILOSEC) 20 MG capsule ??? ondansetron (ZOFRAN) 4 MG tablet ??? XIFAXAN 550 MG tablet No current facility-administered medications for this visit. Allergies Allergen Reactions ??? Pcn [Penicillins] Shortness of Breath ??? Duloxetine Urticaria ??? Iv Contrast [Contrast-Iodinated Agents For Ct/Other] Rash ??? Nexium [Esomeprazole] Urticaria ??? Sulfa Drugs Urticaria ??? Azactam [Aztreonam In Dextrose] Urticaria ??? Aztreonam Urticaria ??? Ciprofloxacin Urticaria ??? Erythromycin Urticaria ??? Octreotide Urticaria Social History Unknown Social History Main Topics ??? Smoking status: Never Smoker ??? Smokeless tobacco: Never Used ??? Alcohol use No Review of Systems A comprehensive review of systems was negative except as described above. Objective: BP 152/89 Pulse 102 Temp 97.9 ??F (36.6 ??C) (Oral) Ht 5' 8 (1.727 m) Wt 276 lb (125.2 kg) SpO2 96% BMI 41.97 kg/m2 General: alert, cooperative, no distress Oropharynx: no mucous membrane abnormalities Eyes: sclera and conjunctiva clear, EOMI and PERRLA, lids normal Neck: supple, symmetrical, trachea midline, no adenopathy, thyroid: not enlarged, symmetric, no tenderness/mass/nodules, no carotid bruit and no JVD Lung: clear to auscultation bilaterally Heart: regular rate and rhythm, S1, S2 normal, no murmur, click, rub or gallop Abdomen: soft without mass, non-tender. No lipodystrophy Extremities: extremities normal, atraumatic, no cyanosis or edema Skin: Warm and dry. no hyperpigmentation, vitiligo, or suspicious lesions Feet: left and right foot/feet examined with shoes and socks removed. Visual inspection was normal. Sensory exam with monofilament was normal. Dorsal pedal and posterior tibial pulses were normal. Neuro: normal without focal findings mental status, speech normal, alert and oriented x 3 reflexes normal and symmetric Lab Review (12/2017) eGFR 82 Albumin 3.7 SGOT 83 SGPT 111 T Nick 1.3 Assessment: Diabetes Mellitus type II, under unsatisfactory control. No complications BLAND cirrhosis: compensated Spinal stenosis with neuropathy HTN: not treated Plan: U500 insulin every 6 hours:- 150 units in AM 150 units in afternoon 150 units in evening 100 units at bedtime Bring log of BGTs at next visit. Take metformin ER 1000 mg in evening. Will consider actos and GLP-1 in future. Start Hydrochlorothiazide 25 mg in AM CMP, urine albumin, lipids before next visit RTC 4 weeks DESTRUCTIVE TESTING SPECIALIST documented in this encounter Plan of Treatment Upcoming Encounters Date Type Department Care Team (Late st Contact Info) Description 02/17/2024 11:59 PM CDT Anesthesia Event [facility] [address] [place] [phone] Pushpa Frey, [address] [facility] [address] [phone] 05/20/2024 12:30 PM NON DESTRUCTIVE TESTING SPECIALIST Appointment [facility] [address] [place] [phone] Steve Bedolla MD [address] [place] [phone] 06/30/2024 10:30 AM NON DESTRUCTIVE TESTING SPECIALIST Office Visit [facility] - [address], [facility] [place] [phone] Steve Bedolla MD [address] [place] [phone] Scheduled Orders Name Type Priority Associated Diagnoses Orde r Schedule MICROALB/CREAT RATIO URINE RANDOM PANEL Lab Routine Type 2 diabetes mellitus with complication, with long-term current use of insulin (HCC) Expected: 05/24/2018 (Approximate), Expires: 06/24/2019 documented as of this encounter Procedures Procedure Name Priority Date/Time Associated Diagnosis Comments HEMOGLOBIN A1C - POINT OF CARE (AMB) [facility] Routine 05/24/2018 8:30 AM NON DESTRUCTIVE TESTING SPECIALIST Type 2 diabetes mellitus with complication, with long-term current use of insulin (HCC) HEMOGLOBIN A1C - POINT OF CARE (AMB) [facility] Routine 05/24/2018 Type 2 diabetes mellitus with complication, with long-term current use of insulin (HCC) documented in this encounter Results * HEMOGLOBIN A1C - POINT OF CARE (AMB) [facility] (05/24/2018 8:30 AM NON DESTRUCTIVE TESTING SPECIALIST) Hemoglobin A1c POCT 8.2 BLOOD SPECIMEN / Unknown 05/24/2018 8:30 AM NON DESTRUCTIVE TESTING SPECIALIST Edmond Choi MD LAB - POINT OF CARE ORDERABLES * HEMOGLOBIN A1C - POINT OF CARE (AMB) [facility] (05/24/2018) Hemoglobin A1c POCT 8.2 BLOOD SPECIMEN / Unknown 05/24/2018 Edmond Choi MD LAB - POINT OF CARE ORDERABLES documented in this encounter Visit Diagnoses Diagnosis Type 2 diabetes mellitus with complication, with long-term current use of insulin (HCC)- Primary documented in this encounter Care Teams Ed Special Education Teacher Relationship Specialty Start Date End Date Braydon Pavon PA [address] [place] [phone] PCP - General Physician Insulator Technician 05/19/18 10/03/18 documented as of this encounter
--- OUTSIDE RECORDS SUMMARY | 2024-04-19 22:43 | XMS_ITS | Encounter Summary ---
Author Organization [facility] Address [address] [place] [address]. [place] [address] [place] [address] Care Team Providers Care Duster Tender Name Role Phone Unavailable Primary Care Provider Unavailabl e Encounter Details Date Type Department Care Team (Late Contact Info) Description 02/02/2018 Abstract [place] [facility] [address] [facility] [place] [address] Gerry Faustin MD [address] [place] [id number] Social History Tobacco Use Types Packs/Day [...] (Late Contact Info) Description 05/10/2024 11:40 AM SECONDARY SCHOOL TEACHER LIBRARIAN Office Visit [facility] Medical Group Diabetes and Endocrinology - [address] [phone] Eva Power MD [address] [place] [phone] documented as of this encounter Procedures Procedure Name Priority Date/Time Associated Diagnosis Comments COMPREHENSIVE METABOLIC PANEL STAT 02/02/2018 12:05 AM CDT CBC W/DIFF AUTOMATED STAT 02/02/2018 12:05 AM CDT documented in this encounter Results * (ABNORMAL) COMPREHENSIVE METABOLIC PANEL (02/02/2018 12:05 AM CDT) SODIUM S/P/B 141 136 - 145 MMOL/L 02/02/2018 12:[address] [facility] POTASSIUM S/P/B 3.8 3.5 - 5.1 MMOL/L 02/02/2018 12:[address] [facility] CHLORIDE S/P/B 104 98 - 107 MMOL/L 02/02/2018 12:[address] [facility] CO2 24.1 21.0 - 32.0 MMOL/L 02/02/2018 12:[address] [facility] GLUCOSE 203(H) 70 - 140 MG/DL 02/02/2018 12:[address] [facility] BUN 12 6 - 24 MG/DL 02/02/2018 12:[address] [facility] CREATININE S/P/B 0.99 0.70 - 1.30 MG/DL 02/02/2018 12:[address] [facility] CALCIUM S/P/B 9.4 8.4 - 10.5 MG/DL 02/02/2018 12:[address] [facility] BILIRUBIN TOTAL S/P/B 1.3(H) 0.2 - 1.0 MG/DL 02/02/2018 12:[address] [facility] ALKALINE PHOSPHATASE S/P/B 99 45 - 115 U/L 02/02/2018 12:[address] [facility] AST 94(H) 15 - 37 U/L 02/02/2018 12:[address] [facility] ALT 116(H) 16 - 63 U/L 02/02/2018 12:[address] [facility] TOTAL PROTEIN S/P/B 7.9 6.4 - 8.2 G/DL 02/02/2018 12:[address] [facility] ALBUMIN S/P/B 3.7 3.4 - 5.0 G/DL 02/02/2018 12:[address] [facility] ANION GAP 12.9 MMOL/L 02/02/2018 12:[address] [facility] Comment:REFERENCE RANGE NOT ESTABLISHED OSMOLALITY (CALC) 298 MOSM/KG 018 12:[address] [facility] Comment:REFERENCE RANGE NOT ESTABLISHED EGFR NON-AFR. AMER. >90 >89 ML/MIN/1.7 3 M2 02/02/2018 12:[address] [facility] Comment: THE ESTIMATED GFR IS CALCULATED USING THE 2009 CKD-EPI EQUATION. THE FOLLOWING CATEGORIES FOR GRADING RENAL FUNCTION ARE RECOMMENDED BY THE INTERNATIONAL SOCIETY OF NEPHROLOGY (KDIGO 2012 CLINICAL PRACTICE GUIDELINE).G1,NORMAL OR HIGH: >89 ml/min/1.73 m2G2,MILDLY DECREASED: 60-89 ml/min/1.73 m2G3A,MILDLY TO MODERATELY DECREASED: 45-59 ml/min/1.73 m2G3B,MODERATELY TO SEVERELY DECREASED: 30-44 ml/min/1.73 m2G4,SEVERELY DECREASED: 15-29 ml/min/1.73 m2G5,KIDNEY FAILURE: <15 ml/min/1.73 m2 EGFR AFR. AMER. >90 >89 ML/MIN/1.7 3 M2 02/02/2018 12:[address] [facility] Comment: THE ESTIMATED GFR IS CALCULATED USING THE 2009 CKD-EPI EQUATION. THE FOLLOWING CATEGORIES FOR GRADING RENAL FUNCTION ARE RECOMMENDED BY THE INTERNATIONAL SOCIETY OF NEPHROLOGY (KDIGO 2012 CLINICAL PRACTICE GUIDELINE).G1,NORMAL OR HIGH: >89 ml/min/1.73 m2G2,MILDLY DECREASED: 60-89 ml/min/1.73 m2G3A,MILDLY TO MODERATELY DECREASED: 45-59 ml/min/1.73 m2G3B,MODERATELY TO SEVERELY DECREASED: 30-44 ml/min/1.73 m2G4,SEVERELY DECREASED: 15-29 ml/min/1.73 m2G5,KIDNEY FAILURE: <15 ml/min/1.73 m2 PLASMA SPECIMEN / Unknown 02/02/2018 12:05 AM CDT 02/02/2018 12:07 AM CDT us Generic Conversion Md [facility] Final R esult [facility] [address] [place] [address], * (ABNORMAL) CBC W/DIFF AUTOMATED (02/02/2018 12:05 AM CDT) WBC 6.2 4.5 - 10.8 x10'3/uL 02/02/2018 12:[address] [facility] RBC 5.17 4.50 - 6.10 x10'6/uL 02/02/2018 12:[address] [facility] HGB 14.5 13.0 - 18.0 G/DL 02/02/2018 12:[address] [facility] HCT 42.4 37.0 - 52.0 % 02/02/2018 12:[address] [facility] MCV 82.0 78.0 - 100.0 FL 02/02/2018 12:[address] [facility] MCH 28.0 27.0 - 31.0 PG 02/02/2018 12:[address] [facility] MCHC 34.2 33.0 - 36.0 G/DL 02/02/2018 12:[address] [facility] RDW 15.2(H) 11.5 - 14.5 % 02/02/2018 12:[address] [facility] PLT 100(L) 150 - 350 x10'3/uL 02/02/2018 12:[address] [facility] MPV 10.4 7.4 - 10.4 FL 02/02/2018 12:[address] [facility] SEG NEUTROPHILS 72.2 % 8 12:[address] [facility] LYMPHOCYTES 13.8 % 02/02/2018 12:[address] [facility] MONOCYTES 9.5 % 02/02/2018 12:[address] [facility] EOSINOPHILS 2.9 % 02/02/2018 12:[address] [facility] BASOPHILS 1.0 % 02/02/2018 12:[address] [facility] IMMATURE GRANS % 0.6 % 02/03/20 18 12:[address] [facility] NRBC 0.0 % 02/02/2018 12:[address] [facility] ABS. NEUTROPHILS 4.48 1.60 - 8.30 x10'3/uL 02/02/2018 12:[address] [facility] ABS. LYMPHOCYTES 0.86 0.80 - 4.70 x10'3/uL 02/02/2018 12:[address] [facility] ABS. MONOCYTES 0.59 0.00 - 1.50 x10'3/uL 02/02/2018 12:[address] [facility] ABS. EOSINOPHILS 0.18 0.00 - 0.40 x10'3/uL 02/02/2018 12:[address] [facility] ABS. BASOPHILS 0.06 0.00 - 0.20 x10'3/uL 02/02/2018 12:[address] [facility] ABS. IMMATURE GRANULOCYTES 0.04(H) 0.00 - 0.03 x10'3/uL 02/02/2018 12:[address] [facility] ABS. NUCLEATED RBC'S 0.00 0.00 x10'3/uL 02/02/2018 12:[address] [facility] OTHER (type in comments) 02/02/2018 12:05 AM CDT 02/02/2018 12:07 AM CDT Comment:WHOLE BLOOD SAMPLE us Generic Conversion Md [facility] Final R esult [facility] [address] [place] [address], documented in this encounter Visit Diagnoses Diagnosis Noninfective gastroenteritis and colitis Other and unspecified noninfectious gastroenteritis and colitis documented in this encounter
--- OUTSIDE RECORDS SUMMARY | 2024-04-19 22:43 | XMS_ITS | Encounter Summary ---
Author Organization [facility] Address [address] [place] [address]. [place] [address] [place] [address] Care Team Providers Care Career Discovery Teacher Name Role Phone Braydon Pavon Primary Care Provider [phone] Reason for Visit * Reason Onset Date Comments Refill Request 03/01/2024 NEEDS PA ON DEXC OM G7 SENSOR REFILL Encounter Details Date Type Department Care Team (Late st Contact Info) Description 03/01/2024 Telephone [facility] Medical Group Diabetes and Endocrinology - [place] [address] [place] [phone] Eva Power MD [address] [place] [address] Refill Request (NEEDS PA ON DEXCOM G7 SENSOR REFILL) Social History Tobacco Use Types Packs/Day Years [...] Progress Notes * Chantelle Espinoza MA - 03/01/2024 12:44 PM CDT PA placed on CMM. * Bria Gonzales - 03/01/2024 12:27 PM CDT Caller name: Camilo Curry Mane Call back/ext. #: [phone] MyChart: No- caller prefers to be called via telephone Call details: NEEDS A PA ON MEDICATION Medication name: Continuous Glucose Sensor (DEXCOM G7 SENSOR) [facility] - [place], [place] - [address], [facility] [address] documented in this encounter Plan of Treatment Upcoming Encounters Date Type Department Care Team (Late st Contact Info) Description 05/10/2024 11:40 AM SULFONATION EQUIPMENT OPERATOR Office Visit [facility] Medical Group Diabetes and Endocrinology - [address] [phone] Eva Power MD [address] [place] [phone] documented as of this encounter Visit Diagnoses Not on filedocumented in this encounter Care Teams Career Discovery Teacher Relationship Specialty Start Date End Date Braydon Pavon PA [address] [place] [address] PCP - General PHYSICIAN GROUND CONTROL APPROACH TECHNICIAN 03/02/19 documented as of this encounter
--- OUTSIDE RECORDS SUMMARY | 2024-04-19 22:43 | XMS_ITS | Encounter Summary ---
Author Organization [facility] Address [address] [place] [address]. [place] [address] [place] [address] Care Team Providers Care Labor And Delivery Registered Nurse Name Role Phone Braydon Pavon Primary Care Provider [phone] Encounter Details Date Type Department Care Team (Latest Contact Info) Description 05/05/2019 Scan HEALTH INFO SRVCS Scanned, Documents Social [...] st Contact Info) Description 05/10/2024 11:40 AM STOCKROOM INVENTORY CLERK Office Visit [facility] Medical Group Diabetes and Endocrinology - [place] [address] [place] [phone] Eva Power MD [address] [place] [address] documented as of this encounter Visit Diagnoses Not on filedocumented in this encounter Care Teams Labor And Delivery Registered Nurse Relationship Specialty Start Date End Date Braydon Pavon PA [address] [place] [address] PCP - General PHYSICIAN ACADEMIC SUPPORT SPECIALIST 03/02/19 documented as of this encounter
--- OUTSIDE RECORDS SUMMARY | 2024-04-19 22:43 | XMS_ITS | Encounter Summary ---
Author Organization [facility] Address [address] [place] [address]. [place] [address] [place] [address] Care Team Providers Care Tie Fastener Name Role Phone Unavailable Primary Care Provider Unavailabl e Encounter Details Date Type Department Care Team (Late Contact Info) Description 06/30/2018 [facility] [address] [place] [address] [place] [address] Lukas Corea MD [address] [place] [address] Social History Tobacco Use Types Packs/Day Years [...] (Late Contact Info) Description 05/10/2024 11:40 AM AUTO TESTER Office Visit [facility] Medical Group Diabetes and Endocrinology - [address] [phone] Eva Power MD [address] [place] [phone] documented as of this encounter Procedures Procedure Name Priority Date/Time Associated Diagnosis Comments COMPREHENSIVE METABOLIC PANEL STAT 06/30/2018 6:04 AM AUTO TESTER CBC W/DIFF AUTOMATED STAT 06/30/2018 6:04 AM AUTO TESTER LIPASE STAT 06/30/2018 6:04 AM AUTO TESTER documented in this encounter Results * LIPASE (06/30/2018 6:04 AM AUTO TESTER) LIPASE 117 73 - 393 UNITS/L 06/30/2018 7:30 AM AUTO TESTER [facility] SERUM OR PLASMA SPECIMEN / Unknown 06/30/2018 6:04 AM AUTO TESTER 06/30/2018 7:13 AM AUTO TESTER us Generic Conversion Md [facility] Final R esult [facility] [address] [place] [id number], * (ABNORMAL) COMPREHENSIVE METABOLIC PANEL (06/30/2018 6:04 AM AUTO TESTER) Pathologist [facility] SODIUM S/P/B 142 136 - 145 MMOL/L 06/30/2018 7:30 AM [facility] POTASSIUM S/P/B 3.7 3.5 - 5.1 MMOL/L 06/30/2018 7:30 AM [facility] CHLORIDE S/P/B 104 98 - 107 MMOL/L 06/30/2018 7:30 AM [facility] CO2 31.0 21.0 - 32.0 MMOL/L 06/30/2018 7:30 AM [facility] GLUCOSE 144(H) 70 - 140 MG/DL 06/30/2018 7:30 AM [facility] BUN 15 6 - 24 MG/DL 06/30/2018 7:30 AM [facility] CREATININE S/P/B 0.93 0.70 - 1.30 MG/DL 06/30/2018 7:30 AM [facility] CALCIUM S/P/B 9.7 8.4 - 10.5 MG/DL 06/30/2018 7:30 AM [facility] BILIRUBIN TOTAL S/P/B 0.9 0.2 - 1.0 MG/DL 06/30/2018 7:30 AM [facility] ALKALINE PHOSPHATASE S/P/B 73 45 - 115 U/L 06/30/2018 7:30 AM [facility] AST 43(H) 15 - 37 U/L 06/30/2018 7:30 AM [facility] ALT 56 16 - 63 U/L 06/30/2018 7:30 AM [facility] TOTAL PROTEIN S/P/B 7.7 6.4 - 8.2 G/DL 06/30/2018 7:30 AM [facility] ALBUMIN S/P/B 3.4 3.4 - 5.0 G/DL 06/30/2018 7:30 AM [facility] ANION GAP 7.0 MMOL/L 06/30/2018 7:30 AM [facility] Comment:REFERENCE RANGE NOT ESTABLISHED OSMOLALITY (CALC) 297 MOSM/KG 06/30/2018 7:30 AM [facility] Comment:REFERENCE RANGE NOT ESTABLISHED EGFR NON-AFR. AMER. >90 >89 ML/MIN/1 .73 M2 06/30/2018 7:30 AM [facility] EGFR AFR. AMER. >90 >89 ML/MIN/1 .73 M2 06/30/2018 7:30 AM [facility] GFR NOTES THE ESTIMATED GFR IS CALCULATED USING THE 2009 CKD-EPI EQUATION. THE FOLLOWING CATEGORIES FOR GRADING RENAL FUNCTION ARE RECOMMENDED BY THE INTERNATIONAL SOCIETY OF NEPHROLOGY (KDIGO 2012 CLINICAL PRACTICE GUIDELINE). 06/30/2018 7:30 AM [facility] Comment: G1,NORMAL OR HIGH: >89 ml/min/1.73 m2G2,MILDLY DECREASED: 60-89 ml/min/1.73 m2G3A,MILDLY TO MODERATELY DECREASED: 45-59 ml/min/1.73 m2G3B,MODERATELY TO SEVERELY DECREASED: 30-44 ml/min/1.73 m2G4,SEVERELY DECREASED: 15-29 ml/min/1.73 m2G5,KIDNEY FAILURE: <15 ml/min/1.73 m2 PLASMA SPECIMEN / Unknown 06/30/2018 6:04 AM AUTO TESTER 06/30/2018 7:13 AM AUTO TESTER us Generic Conversion Md [facility] Final R esult [facility] [address] [place] [address], * (ABNORMAL) CBC W/DIFF AUTOMATED (06/30/2018 6:04 AM AUTO TESTER) WBC 5.9 4.5 - 10.8 x10'3/uL 06/30/2018 7:39 AM [facility] RBC 4.83 4.50 - 6.10 x10'6/uL 06/30/2018 7:39 AM [facility] HGB 12.9(L) 13.0 - 18.0 G/DL 06/30/2018 7:39 AM [facility] HCT 39.4 37.0 - 52.0 % 06/30/2018 7:39 AM [facility] MCV 81.6 78.0 - 100.0 FL 06/30/2018 7:39 AM [facility] MCH 26.7(L) 27.0 - 31.0 PG 06/30/2018 7:39 AM [facility] MCHC 32.7(L) 33.0 - 36.0 G/DL 06/30/2018 7:39 AM [facility] RDW 15.5(H) 11.5 - 14.5 % 06/30/2018 7:39 AM [facility] PLT 88(L) 150 - 350 x10'3/uL 06/30/2018 7:39 AM [facility] MPV 12.1(H) 7.4 - 10.4 FL 06/30/2018 7:39 AM [facility] SEG NEUTROPHILS 81.2 % 9 7:52 AM [facility] LYMPHOCYTES 9.4 % 06/30/2018 7:52 AM [facility] MONOCYTES 7.7 % 06/30/2018 7:52 AM [facility] EOSINOPHILS 0.9 % 06/30/2018 7:52 AM [facility] BASOPHILS 0.3 % 06/30/2018 7:52 AM [facility] IMMATURE GRANS % 0.5 % 06/30/19 19 7:52 AM [facility] NRBC 0.0 % 06/30/2018 7:52 AM [facility] ABS. NEUTROPHILS 4.80 1.60 - 8.30 x10'3/uL 06/30/2018 7:52 AM [facility] ABS. LYMPHOCYTES 0.55(L) 0.80 - 4.70 x10'3/uL 06/30/2018 7:52 AM [facility] ABS. MONOCYTES 0.45 0.00 - 1.50 x10'3/uL 06/30/2018 7:52 AM [facility] ABS. EOSINOPHILS 0.05 0.00 - 0.40 x10'3/uL 06/30/2018 7:52 AM [facility] ABS. BASOPHILS 0.02 0.00 - 0.20 x10'3/uL 06/30/2018 7:52 AM [facility] ABS. IMMATURE GRANULOCYTES 0.03 0.00 - 0.03 x10'3/uL 06/30/2018 7:52 AM [facility] ABS. NUCLEATED RBC'S 0.00 0.00 x10'3/uL 06/30/2018 7:52 AM [facility] PLT MORPH. DECREASED 06/30/2018 7:52 AM [facility] RBC MORPHOLOGY 1+ 06/30/2018 7:52 AM [facility] Comment:ANISOCYTOSIS1+POIKIL OCYTOSIS OTHER (type in comments) 06/30/2018 6:04 AM AUTO TESTER 06/30/2018 7:13 AM AUTO TESTER Comment:WHOLE BLOOD SAMPLE us Generic Conversion Md [facility] Final R esult [facility] [address] [place], [place] [address] [phone] documented in this encounter Visit Diagnoses Diagnosis Abdominal pain Abdominal pain, unspecified site documented in this encounter
--- OUTSIDE RECORDS SUMMARY | 2024-04-19 22:43 | XMS_ITS | Encounter Summary ---
Author Organization [facility] Address [address] [place] [address]. [place] [address] [place] [address] Care Team Providers Care Slunk Skinner Name Role Phone Braydon Pavon Primary Care Provider [phone] Encounter Details Date Type Department Care Team (Late st Contact Info) Description 11/11/2020 11:18 PM CDT - 11/11/2020 11:52 PM CDT Emergency [facility] [address] [address] Josué Wilson, DO [address] [place], [place] [id number] Discharge Disposition: Home or Self Care (Routine [...] Sign Reading Time Taken Comments Blood Pressure 147/80 11/11/2020 11:18 PM CDT Pulse 110 11/11/2020 11:18 PM CDT Temperature 36.2 ??C (97.2 ??F) 11/11/2020 11:18 PM C DT Respiratory Rate 18 11/11/2020 11:18 PM CDT Oxygen Saturation 99% 11/11/2020 11:18 PM CDT Inhaled Oxygen Concentration - - Weight 117.9 kg (260 lb) 11/11/2020 11:18 PM CDT Height 172.7 cm (5' 8 ) 11/11/2020 11:18 PM CDT Body Mass Index 39.53 11/11/2020 11:18 PM CDT documented in this encounter Discharge Instructions * Discharge Instructions* Josué Wilson DO - 11/11/2020 11:37 PM CDT Take prescribed antiviral medication per directions. If pain has not resolved when you finish this medication, follow-up with your primary care physician. * Attachments The following attachments cannot be sent through Care Everywhere. * Shingles Discharge Instructions (Hungarian) documented in this encounter Medications at Time of Discharge Insulin Pen Needle (PEN NEEDLES) 32G X 4 MM Misc Inject 3 times daily 08/04/2019 lactulose 20 GM/30ML solution Take 30 mLs by mouth 4 (four) times daily. ONE TOUCH ULTRA TEST STRIPS test stripIndications: Type 2 diabetes mellitus with hyperglycemia, with long-term current use of insulin ([facility]/HCC HHS/HCC) Test 4 times daily 200 strip 11 09/06/2019 rifaximin 200 MG tablet Take 550 mg by mouth 2 (two) times daily. vitamin D2, ergocalciferol, 95702 UNITS capsule Take 50,000 Units by mouth every 30 (thirty) days. acetaminophen-cod eine 300-30 MG tablet Take 1 tablet by mouth every 4 (four) hours as needed for Pain. 03/19/2021 ALPRAZolam (XANAX) 0.5 MG tablet Take 0.5 mg by mouth nightly as needed. 02/15/2024 cyclobenzaprine 5 MG tablet 11/09/2020 02/15/2024 HUMULIN R U-500 KWIKPEN 500 UNIT/ML injection [...] 02/15/2024 ondansetron 4 MG tablet 04/04/2019 02/15/2024 valACYclovir 1 g tablet Take 1 tablet (1,000 mg total) by mouth 3 (three) times daily for 7 days. 21 tablet 11/11/2020 11/18/2020 VENTOLIN HFA 108 (90 Base) MCG/ACT inhaler 04/04/2019 02/15/2024 documented as of this encounter ED Notes * Jose Juan Quintanilla RN - 11/11/2020 11:52 PM CDT Discharge poc reviewed with patient. Verbalized understanding. Tolerated po medication well. Voicesno further complaints. * Jose Juan Quintanilla RN - 11/11/2020 11:20 PM CDTSummary: nurses notes Pt arrives pov with . C/O right sided lower abdominal pain, radiating to groin and around to buttocks. C/O blistering to right inner thigh. States he is tender to touch et feels burning sensationto groin and upper right leg. Pt states he was in [place] ED [facility] night with the same symptoms and complaints. Pt states he was sent home with a prescribed muscle relaxer. Pt states he is here because symptoms persist. * Josué Wilson DO - 11/11/2020 11:15 PM CDT Chief Complaint No chief complaint on file. History of Present Illness 50-year-old male presents the emergency department complaining of pain radiating from hisright buttock to his right groin. The patient describes the pain as burning. Patient states pain started approximately 1-1/2 weeks ago. Patient noted a blistering rash of his internal thigh several days ago. He presented to an outside hospital emergency department at that time and states that they worked him up for a kidney stone. He was negative for kidney stones, so they discharged him with a muscle relaxant. Patient states that the pain and rash have not changed at all since then. Patient denies any urinary symptoms, nausea, vomiting, diarrhea, or fever. Patient reports that otherwise he has been in his normal state of health. History provided by: Patient technical testing engineer used: No Medical History ALLERGIES: Allergies Allergen Reactions ??? Azithromycin Unknown ??? Aztreonam Unknown ??? Ciprofloxacin Unknown ??? Contrast [Iodine] Swelling ??? Duloxetine Hcl Unknown ??? Erythromycin Unknown ??? Esomeprazole Unknown ??? Nisoldipine Unknown ??? Octreotide Unknown ??? Penicillins Unknown ??? Sulfa Antibiotics Unknown MEDICATIONS: Prior to Admission medications Medication Sig Start Date End Date Taking? Authorizing Provider valACYclovir 1 g tablet Take 1 tablet (1,000 mg total) by mouth 3 (three) times daily for 7 days. 11/11/20 11/18/20 Yes Josué Wilson DO acetaminophen-codeine 300-30 MG tablet Take 1 tablet by mouth every 4 (four) hours as needed for Pain. Doc Abstract ALPRAZolam (XANAX) 0.5 MG tablet Take 0.5 mg by mouth nightly as needed. Doc Abstract HUMULIN R U-500 KWIKPEN 500 UNIT/ML injection Inject 200 units three times daily before meals 08/04/19 Eva Power MD hydrochlorothiazide 25 MG tablet Take 25 mg by mouth daily. Doc Abstract Insulin Pen Needle (PEN NEEDLES) 32G X 4 MM Misc Inject 3 times daily 08/04/19 Eva Power MD lactulose 20 GM/30ML solution Take 30 mLs by mouth 4 (four) times daily. Doc Abstract metFORMIN ER, MOD, 500 MG TABLET SR 24 HR 24 hr tablet Take 2 tablets by mouth nightly. Doc Abstract omeprazole 20 MG capsule Take 1 capsule by mouth. 09/14/16 Doc Abstract ondansetron 4 MG tablet 04/04/19 Doc Abstract ONE TOUCH ULTRA TEST STRIPS test strip Test 4 times daily 09/06/19 Eva Power MD rifaximin 200 MG tablet Take 550 mg by mouth 2 (two) times daily. Doc Abstract VENTOLIN HFA 108 (90 Base) MCG/ACT inhaler 04/04/19 Doc Abstract vitamin D2, ergocalciferol, 75306 UNITS capsule Take 50,000 Units by mouth every 30 (thirty) days. Doc Abstract PAST MEDICAL HISTORY: Past Medical History: Diagnosis Date ??? History of upper gastrointestinal hemorrhage 09/10/2015 ??? HTN (hypertension) ??? 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 Type 2 diabetes mellitus with hyperglycemia, with long-term current use of insulin (CMS/HCC) PAST SURGICAL HISTORY: Past Surgical History: Procedure Laterality Date ??? COLONOSCOPY ??? HC TIPS REVISION FAMILY HISTORY: Family History Problem Relation Name Age of Onset ??? Cancer Mother ??? Cancer Father ??? Diabetes Sister SOCIAL HISTORY: Social History Tobacco Use ??? Smoking status: Former Smoker Quit date: 2000 Years since quittin.5 ??? Smokeless tobacco: Never Used Substance Use Topics ??? Alcohol use: No ??? Drug use: No Review of Systems Review of Systems All other systems reviewed and are negative. Physical Exam Filed Vitals: 11/11/20 2318 BP: (!) 147/80 Pulse: 110 Resp: 18 Temp: 97.2 ??F (36.2 ??C) TempSrc: Temporal SpO2: 99% Weight: 117.9 kg (260 lb) Height: 5' 8 (1.727 m) Physical Exam Vitals and nursing note reviewed. Constitutional: General: He is not in acute distress. Appearance: He is well-developed. He is not diaphoretic. HENT: Head: Normocephalic and atraumatic. Eyes: Conjunctiva/sclera: Conjunctivae normal. Pulmonary: Effort: Pulmonary effort is normal. No respiratory distress. Breath sounds: Normal breath sounds. Musculoskeletal: General: Tenderness (right buttock and right groin) present. Skin: Findings: Rash (blistering on erythematous base to inner thigh) present. Neurological: Mental Status: He is alert and oriented to person, place, and time. Psychiatric: Behavior: Behavior normal. Thought Content: Thought content normal. Judgment: Judgment normal. Diagnostic Studies / Procedures ELECTROCARDIOGRAMS: No results found for this visit on 11/11/20. LABORATORY STUDIES: No results found for this visit on 11/11/20. IMAGING STUDIES No orders to display ED Course / Medical Decision Making MDM Number of Diagnoses or Management Options Herpes zoster without complication: new and does not require workup Risk of Complications, Morbidity, and/or Mortality Presenting problems: moderate Diagnostic procedures: minimal Management options: moderate Patient Progress Patient progress: stable ED Course as of Nov 11 2342 Sun Nov 11, 2020 234 Patient given single dose of Valtrex prior to discharge and prescription to continue every 8 hours for 7 days. He understands that shingles can cause permanent nerve damage and if pain persists after completion of the prescription, he will need to follow-up with his primary care physician. He also expresses understanding that he can spread the virus to people who are not immune to chickenpoxsuch as infants if they should come into contact with the contents of the blisters. All questions were answered to the patient's satisfaction. [JW] ED Course User Index [JW] Josué Wilson DO Clinical Impression Herpes zoster without complication (Primary) Disposition: Discharge Josué Wilson DO 11/11/202342 documented in this encounter Plan of Treatment Upcoming Encounters Date Type Department Care Team (Late st Contact Info) Description 05/10/2024 11:40 AM CARDROOM PLASTIC CARD GRADER Office Visit [facility] Diabetes and Endocrinology - [address] [phone] Eva Power MD [address] [place] [phone] documented as of this encounter Visit Diagnoses Diagnosis Herpes zoster without complication- Primary Herpes zoster without mention of complication documented in this encounter Administered Medications Inactive Administered Medications - up to 3 most recent administrations Medication Order MAR Action Action Date Dose Rate Site valACYclovir (VALTREX) tablet 1,000 mg 1,000 mg, Oral, Once, 1 dose, On 11/11/20 at 2345 Given 11/11/2020 11:51 PM CDT 1,000 mg documented in this encounter Active and Recently Administered Medications Times are shown in CDT. Scheduled Medication Order 11/09/2020 11/10/2020 11/11/2020 valACYclovir (VALTREX) tablet 1,000 mg (COMPLETED) 1,000 mg, Oral, Once, 1 dose, On 11/11/20 at 2345 2351 (Given - Provid er: Jose Juan Quintanilla RN) documented in this encounter Care Teams Slunk Skinner Relationship Specialty Start Date End Date Braydon Pavon PA [address] [place] [address] PCP - General PHYSICIAN ESCORT SERVICE ATTENDANT 03/02/19 documented as of this encounter
--- OUTSIDE RECORDS SUMMARY | 2024-04-19 22:43 | XMS_ITS | Encounter Summary ---
Author Organization [facility] Address [address] [place] [address]. [place] [address] [place] [address] Care Team Providers Care Portfolio Analyst Name Role Phone Unavailable Primary Care Provider Unavailabl e Encounter Details Date Type Department Care Team (Latest Contact Info) Description 12/09/2016 Abstract [facility] Social History Tobacco [...] st Contact Info) Description 05/10/2024 11:40 AM ENGINEERING PROFESSOR Office Visit [facility] Medical [facility] Diabetes and Endocrinology - [address] [phone] Eva Power MD [address] [place] [phone] documented as of this encounter Visit Diagnoses Not on filedocumented in this encounter
--- OUTSIDE RECORDS SUMMARY | 2024-04-19 22:43 | XMS_ITS | Encounter Summary ---
Author Organization [facility] Address [address] [facility] [address] Care Team Providers Care Quill Cleaning Machine Operator Name Role Phone Braydon Pavon Primary Care Provider [phone] Encounter Details Date Type Department Care Team (Late Contact Info) Description 05/24/2018 Orders Only [facility] [address] [facility] [place] [address] Edmond Choi MD [address] [facility] [address] [place] [address] Type 2 diabetes mellitus with complication, with [...] Description 02/17/2024 11:59 PM CDT Anesthesia Event [facility] MRI [address] [place] [id number] Pushpa Frey DO [address] [facility] [address] [id number] 05/20/2024 12:30 PM WAREHOUSING TECHNICIAN Appointment [facility] [address] [place] [address] Steve Bedolla MD [address] [place] [phone] 06/30/2024 10:30 AM WAREHOUSING TECHNICIAN Office Visit [facility] - [place] [address] [facility], [place] [phone] Steve Bedolla MD [address] [place] [phone] documented as of this encounter Visit Diagnoses Diagnosis Type 2 diabetes mellitus with complication, with long-term current use of insulin (HCC) documented in this encounter Care Teams Quill Cleaning Machine Operator Relationship Specialty Start Date End Date Braydon Pavon PA [address] [place] [address] PCP - General Physician Brigadier 05/19/18 10/03/18 documented as of this encounter
--- OUTSIDE RECORDS SUMMARY | 2024-04-19 22:43 | XMS_ITS | Encounter Summary ---
Author Organization [facility] Address [address] [place] [address]. [place] [address] [place] [address] Care Team Providers Care Infrastructure Manager Name Role Phone Unavailable Primary Care Provider Unavailabl e Encounter Details Date Type Department Care Team (Late Contact Info) Description 02/07/2017 Abstract [facility] [address] [facility] [place] [address] Sameera Villa MD [address] [place] [address] Social History Tobacco Use Types Packs/Day Years [...] (Late Contact Info) Description 05/10/2024 11:40 AM ELECTROMECHANICAL INSPECTOR Office Visit [facility] Medical [facility] Diabetes and Endocrinology - [address] [phone] Eva Power MD [address] [facility] [place] [address] documented as of this encounter Procedures Procedure Name Priority Date/Time Associated Diagnosis Comments STREP A, DNA Routine 02/07/2017 6:55 AM CDT RAPID STREP A STAT 02/07/2017 6:55 AM CDT documented in this encounter Results * STREP A, DNA (02/07/2017 6:55 AM CDT) SPEC DESCRIPTION THROAT 02/07/2017 7:12 AM CDT [facility] SPECIAL REQUESTS NO SPECIAL REQUEST 02/07/2017 7:12 AM CDT [facility] RESULT NEGATIVE 02/07/2017 8:09 AM CDT [facility] THROAT SWAB / Unknown 02/07/2017 6:55 AM CDT 02/07/2017 7:12 AM CDT us Generic Conversion Md RED MICROBIOLOGY - GENERAL ORDERABLES Final Result Performing Organization Address [facility] Co de Phone Number [place] [phone] [place] [address], * RAPID STREP A (02/07/2017 6:55 AM CDT) SPEC DESCRIPTION THROAT 02/07/2017 7:03 AM CDT [facility] SPECIAL REQUESTS NO SPECIAL REQUEST 02/07/2017 7:03 AM CDT [facility] RAPID STREP TEST NEGATIVE 02/07/2017 7:12 AM CDT [facility] THROAT SWAB / Unknown 02/07/2017 6:55 AM CDT 02/07/2017 7:08 AM CDT us Generic Conversion Md RED MICROBIOLOGY - GENERAL ORDERABLES Final Result Performing Organization Address City/[facility]/ZIP Co de Phone Number [facility] [address] [place] [address], documented in this encounter Visit Diagnoses Diagnosis Acute pharyngitis documented in this encounter
--- OUTSIDE RECORDS SUMMARY | 2024-04-19 22:43 | XMS_ITS | Encounter Summary ---
Author Organization [facility] Address [address] [place] [address]. [place] [address] [place] [address] Care Team Providers Care Information Tech Name Role Phone Braydon Pavon Primary Care Provider [phone] Reason for Referral * (Routine) - New Request Specialty Diagnoses / Procedures Referred By Contac t Referred To Contact Diagnoses Type 2 diabetes mellitus with hyperglycemia, with long-term current use of insulin ([facility] HHS/[facility]) Procedures CONT GLUC MNTR ANALYSIS I&R Paul Chanel MD [facility] [address] [place] [address] Phone: tel: fax: Referral ID Status Reason Start Date Expiration Date V isits Requested Visits Authorized [id number] New Request 02/15/2024 02/14/2025 1 1 Reason for Visit * Reason Comments Type 2 Diabetes New Patient * Consultation (Routine) - New Request Specialty Diagnoses / Procedures Referred By Contac t Referred To Contact ENDOCRINOLOGY Diagnoses Type 2 diabetes mellitus ([facility]) Procedures OFFICE/OUTPT VISIT,JILLIAN ZAMORA IV, James, PA [address] [place] [address] Phone: tel: fax: Paul Chanel MD [address] [place] [address] Phone: tel:[phone] fax: Referral ID Status Reason Start Date Expiration Date Visits Requested Visits Authorized [id number] New Request Consultatio n 01/26/2024 01/25/2025 1 1 Encounter Details Date Type Department Care Team (Latest Contact Info) Description 02/15/2024 2:00 PM CDT Office Visit [facility] Medical Group Diabetes and Endocrinology - [address] [phone] Paul Chanel MD [facility] [place] [address] Type 2 Diabetes; New Patient Social History Tobacco Use Types Packs/Day Years [...] 02/15/2024 1:54 PM CD T Respiratory Rate - - Oxygen Saturation 96% 02/15/2024 1:54 PM CDT Inhaled Oxygen Concentration - - Weight 100.2 kg (221 lb) 02/15/2024 1:54 PM CDT Height 172.7 cm (5' 8 ) 02/15/2024 1:54 PM CDT Body Mass Index 33.6 02/15/2024 1:54 PM CDT documented in this encounter Patient Instructions * Patient Instructions* Paul Chanel MD - 02/15/2024 2:00 PM CDT Start U-500 R 200 units in the morning and 8 pm Start Trulicity 0.75 mg one a week Start metformin ER 500 mg 1 tab a day Avoid sweets documented in this encounter Progress Notes * Paul Chanel MD - 02/15/2024 2:00 PM CDT Reason for Visit: Type 2 Diabetes and New Patient Referring Provider: SONALI Kunz PCP: SONALI KUNZ ASSESSMENT: Camilo Curry is a 53-year-old male with type 2 diabetes, complicated by peripheral neuropathy; 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 s/p TIPS in 2016), on chronic opioids for spinal stenosis Type 2 diabetes - uncontrolled Lab Results Component Value Date HGBA1C 10.0 (H) 11/23/2023 Diabetes treatment include Lantus 50/35 units , lispro 32 units BID - NOT TAKING INSULIN CONSISTENTLY Microalbumin NA Lab Results Component Value Date CR 0.93 01/22/2024 GFREST >90 01/22/2024 Peripheral neuropathy and spinal stenosis on pregabalin 200 mg twice daily Eye exam - 2022, not aware of retinopathy HTN on HCTZ 25 mg BP Readings from Last 1 Encounters: 02/15/24 133/77 Lipid screening No results found for: LDLC PLAN: Reviewed with the patient: Diabetes control is critically poor. Efforts need to be made to improve diet, implement regular exercise program, take meds as directed. Reviewed goals for diabetes treatment: A1c 7% or less, fasting glucose 90-140 mg/dL. Dexcom G7 CGM data reviewed. Optimal dietary/nutritional management and regular exercise 30 minutes at least 5 times weekly are encouraged. Reviewed recommendation for carbohydrate controlled diet. Diet modifications provided. Start U-500 R 200 units in the morning and 8 pm. Emphasized the importance of compliance with twicea day insulin therapy Start Trulicity 0.75 mg one a week. If tolerating consider dose increase or change to Mounjaro. Start metformin ER 500 mg 1 tab a day (he did not tolerate higher dose in the past due to stomach pain but willing to try) Stay well-hydrated, avoid any sugar containing beverages. 3 months follow-up is recommended. Needs urine microalbumin, cholesterol, TSH. SUBJECTIVE: Camilo Curry is a very pleasant 53-year-old male who presents for evaluation and treatment of type 2 diabetes at the request of SONALI Kunz. Previously seen by me twice in 2016 and in Apr 2019. May 2018 - he was on U=500 160 u TID, and metformin ER 1000 mg in the evening (Dr. Edmond Choi,[facility]) Apr 2019 he was on U-500 R insulin 200 units TID with meals., stopped metformin due to stomach upset ([facility]) Oct 2020 - on U-500 200 units TID, (Dr. Nacho Lindo [facility]) A1c 9.8%. Started Ozempic - did not tolerate? May 2021 - A1c 9.8% May 2023 - saw a new endo Dr. Vikram Mora in [place], [place]. A1c 11.6%. Reported to be on Lantus 50 in themorning and 30 5 in the evening, Humalog 45 units before each meal, noncompliant with that regimen.Changed to Lantus 40 units at bedtime, Humalog 14 units before each meal. Current diabetes regimen: Take Humalog 32 units - first 8 am, eat 1st meal at noon and 8 pm, [id number] units at 8 am and 35 units at 8 pm. HE IS NOT TAKING INSULIN CONSISTENTLY. Prescribed Trulicity - never started. Lost 50 pounds several months ago without trying. Excessive thirst and urination, drinks 20 bottles of water a day. No sugar containing beverages. Frequent sweets (bananas pudding, PB nutty bars, cakes) Camilo reports chronic fatigue, weight loss, blurry vision , polyuria, excessive thirst, leg numbness, chronic nausea, constipation. No foot ulcers, no skin infections. No concerns of hypoglycemia. Aware when blood sugar is low: yes Glucose monitorin-day average glucose 383, 98% > 250. The only time glucose ever lower [id number] 9 am- noon for a brief 2-3 hrs period, then immediately goes up to 400 after he eats his firstmeal of the day.. Patient Active Problem List Diagnosis Diabetes mellitus, type 2 (CMS/HCC HHS/HCC) Esophageal varices (CMS/HCC HHS/HCC) Hepatic encephalopathy (CMS/HCC HHS/HCC) Essential hypertension 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) Morbid obesity (CMS/HCC HHS/HCC) TRACY (obstructive sleep apnea) Thrombocytopenia (CMS/HCC) Type 2 diabetes mellitus with hyperglycemia, with long-term current use of insulin (CMS/HCC HHS/HCC) Lumbar degenerative disc disease History of Present Illness: Camilo Curry is a very pleasant 53-year-old patient presents with type 2 diabetes Dx with diabetes in 2011, at first well controlled with A1c <7% on metformin, but uncontrolled since dx with liver cirrhosis 2ry to BLAND in 2015. Other medical problems include esophageal varices,hepatic encephalopathy, s/p TIPs. Follows with GI in [place] - Dr. Bev Ellis ([facility]). A1c 7.7 (September 2016); 8.4 (Feb 2018), 10.9 (2018), 9.8 (2020); 9.8 (2021), 11.5 (Mar 2023) Lab Results Component Value Date HGBA1C 10.0 (H) 11/23/2023 HGBA1C 11.6 (H) 05/20/2023 HGBA1C 11.5 (H) 02/10/2023 HGBA1C 9.8 (H) 05/20/2021 HGBA1C 10.9 04/05/2019 Current treatment includes: Previous treatment include Ozempic? 2018, Sung Contributing factors: Diet reviewed: Exercises - Diabetic complications: Diabetes eye disease: Not aware of retinopathy Cardiovascular: no coronary artery disease No results found for: LDLC , TRI Renal disease: microalbumin undetectable (May 2021) Lab Results Component Value Date CR 0.93 01/22/2024 Musculoskeletal / Integumentary / Circulatory: no foot ulcers Neurologic: peripheral neuropathy Hypoglycemic episodes: none Family History of diabetes mellitus sister Lab Results Component Value Date AST 21 01/22/2024 HGB 15.5 01/22/2024 Alb 3.7 (Jan 2024) TSH? Review of Systems Constitutional: Positive for malaise/fatigue and weight loss. Negative for night sweats. Eyes: Positive for blurred vision. Cardiovascular: Negative for chest pain and near-syncope. Respiratory: Negative for cough and shortness of breath. Endocrine: Positive for polydipsia and polyuria. Negative for cold intolerance and heat intolerance. Hematologic/Lymphatic: Does not bruise/bleed easily. Skin: Negative for poor wound healing and rash. Musculoskeletal: Positive for back pain and stiffness. Gastrointestinal: Positive for abdominal pain, constipation and nausea. Genitourinary: Positive for frequency and urgency. Neurological: Positive for paresthesias. Negative for disturbances in coordination, headaches and tremors. Psychiatric/Behavioral: Negative for depression and memory loss. Allergic/Immunologic: Negative for persistent infections. Medications: Current Outpatient Medications on File Prior to Visit Medication Sig albuterol sulfate HFA 108 (90 Base) MCG/ACT inhaler Inhale 2 puffs into the lungs. ALPRAZolam (XANAX) 1 MG tablet Take 1 tablet (1 mg total) by mouth 3 (three) times daily. B-D ULTRAFINE III SHORT PEN 31G X 8 MM Misc Continuous Glucose Sensor (DEXCOM G7 SENSOR) Misc famotidine (PEPCID) 20 MG tablet HYDROcodone-acetaminophen (NORCO) 10-325 MG tablet Insulin Pen Needle (PEN NEEDLES) 32G X 4 MM Misc Inject 3 times daily lactulose 20 GM/30ML solution Take 30 mLs by mouth 4 (four) times daily. naloxone (NARCAN) 4 MG/0.1ML nasal spray ondansetron (ZOFRAN-ODT) 4 MG disintegrating tablet Take 1 tablet (4 mg total) by mouth. ONE TOUCH ULTRA TEST STRIPS test strip Test 4 times daily pregabalin (LYRICA) 200 MG capsule Take 1 capsule (200 mg total) by mouth daily. TRULICITY 0.75 MG/0.5ML injection Inject 0.75 mg into the skin once a week. rifaximin 200 MG tablet Take 550 mg by mouth 2 (two) times daily. (Patient not taking: Reported on 02/15/2024) vitamin D2, ergocalciferol, [address]72 UNITS capsule Take 50,000 Units by mouth every 30 (thirty) days. (Patient not taking: Reported on 02/15/2024) No current facility-administered medications on file prior to visit. 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 ([facility] HHS/HCC) 07/21/2018 Type 2 diabetes mellitus with hyperglycemia, with long-term current use of insulin ([facility] HHS/HCC) Past Surgical History: Procedure Laterality Date COLONOSCOPY STOMA DX INCLUDING COLLJ SPEC SPX HC TIPS REVISION Family History: Diabetes in his sister; Ovarian Cancer in his mother; Throat cancer in his father. Social History Social History Narrative Former smoker, quit in 2001 Disabled Prior h/o drug use Filed Vitals: 02/15/24 1354 BP: 133/77 Pulse: 89 Temp: 98.3 ??F (36.8 ??C) SpO2: 96% Weight: 100.2 kg (221 lb) Height: 1.727 m (5' 8 ) Body mass index is 33.6 kg/m??. Physical Exam Constitutional: Appearance: Normal appearance. He is well-groomed and normal weight. Eyes: Extraocular Movements: Extraocular movements intact. Conjunctiva/sclera: Conjunctivae normal. Neck: Thyroid: No thyromegaly. Cardiovascular: Rate and Rhythm: Normal rate and regular rhythm. Heart sounds: Normal heart sounds. Pulmonary: Effort: Pulmonary effort is normal. No respiratory distress. Breath sounds: Normal breath sounds. Abdominal: General: Bowel sounds are normal. Palpations: Abdomen is soft. Tenderness: There is no abdominal tenderness. Musculoskeletal: Right lower leg: No edema. Left lower leg: No edema. Lymphadenopathy: Cervical: No cervical adenopathy. Skin: Coloration: Skin is not pale. Findings: No bruising or rash. Neurological: General: No focal deficit present. Mental Status: He is alert and oriented to person, place, and time. Gait: Gait normal. Psychiatric: Mood and Affect: Mood normal. Behavior: Behavior normal. Problem List Items Addressed This Visit Type 2 diabetes mellitus with hyperglycemia, with long-term current use of insulin ([facility]/HCC HHS/HCC) - Primary Relevant Medications insulin regular, CONCENTRATED, (HUMULIN R U-500 KWIKPEN) 500 UNIT/ML injection metFORMIN ER (GLUCOPHAGE-XR) 500 MG 24 hr tablet Other Relevant Orders CONT GLUC MNTR ANALYSIS I&R Counseling The patient was counseled regarding diagnostic results, instructions for management, risk factor reductions, prognosis, risks and benefits of treatment options and importance of compliance with treatment. Diabetes management was discussed with attention to - goals of glycemic control: A1c 7%, fasting BG 80-140 mg/dL, post meal <=180 mg/dL - SMBG schedule - our instituted therapies, mechanism of action and adverse effects - meal planning - importance of foot care and regular eye exams - our monitoring and f/up plan Barriers of diabetes self-management assessed PAUL CHANEL documented in this encounter Plan of Treatment Upcoming Encounters Date Type Department Care Team (Late st Contact Info) Description 05/10/2024 11:40 AM TARGET TRIMMER Office Visit [facility] Medical Group Diabetes and Endocrinology - [address] [phone] Paul Chanel MD [address] [place] [id number] Scheduled Orders Name Type Priority Associated Diagnoses Orde r Schedule CONT GLUC MNTR ANALYSIS I&R Procedures Routine Type 2 diabetes mellitus with hyperglycemia, with long-term current use of insulin ([facility]) Ordered: 02/15/2024 documented as of this encounter Visit Diagnoses Diagnosis Type 2 diabetes mellitus with hyperglycemia, with long-term current use of insulin ([facility])- Primary documented in this encounter Care Teams Information Tech Relationship Specialty Start Date End Date Braydon Pavon PA [address] [place] [address] PCP - General PHYSICIAN ADULT EDUCATION TEACHER 03/02/19 documented as of this encounter
--- OUTSIDE RECORDS SUMMARY | 2024-04-19 22:44 | XMS_ITS | Encounter Summary ---
Author Organization [facility] Address [address] [place] [address]. [place] [address] [place] [address] Care Team Providers Care Tire Care Manager Name Role Phone Unavailable Primary Care Provider Unavailabl e Encounter Details Date Type Department Care Team (Late st Contact Info) Description 12/29/2015 [facility] Emergency Room [address] [facility] [place] [address] Social History Tobacco Use Types Packs/Day Years [...] st Contact Info) Description 05/10/2024 11:40 AM ORTHOTIST Office Visit [facility] Medical Group Diabetes and Endocrinology - [address] [phone] Eva Power MD [address] [place], [place] [address] [address] documented as of this encounter Visit Diagnoses Diagnosis Secondary esophageal varices with bleeding (CMS/HCC HHS/HCC) Esophageal varices with bleeding in diseases classified elsewhere documented in this encounter
--- OUTSIDE RECORDS SUMMARY | 2024-04-19 22:44 | XMS_ITS | Encounter Summary ---
Author Organization [facility] Address [address] [place] [address]. [place] [address] [place] [address] Care Team Providers Care Rn Behavioral Health Name Role Phone Unavailable Primary Care Provider Unavailabl e Encounter Details Date Type Department Care Team (Late Contact Info) Description 11/02/2016 [facility] [address] [facility] [place] [address] Sameera Villa MD [address] [place] [address] Social History Tobacco Use Types [...] (Late Contact Info) Description 05/10/2024 11:40 AM COOKER HELPER Office Visit [facility] Medical Group Diabetes and Endocrinology - [address] [phone] Eva Power MD [address] [facility] [place], [place] [address] documented as of this encounter Procedures Procedure Name Priority Date/Time Associated Diagnosis Comments CARDIAC PROFILE STAT 11/02/2016 9:04 AM CDT BETA-HYDROXYBUTYRATE STAT 11/02/2016 9:04 AM CDT PRO-BRAIN NATRIURETIC PEPTIDE STAT 11/02/2016 9:04 AM CDT COMPREHENSIVE METABOLIC PANEL STAT 11/02/2016 9:04 AM CDT CBC W/DIFF AUTOMATED STAT 11/02/2016 9:04 AM CDT AMMONIA STAT 11/02/2016 9:04 AM CDT documented in this encounter Results * (ABNORMAL) COMPREHENSIVE METABOLIC PANEL (11/02/2016 9:04 AM CDT) GLUCOSE 218(H) 70 - 99 MG/DL 11/02/2016 9:29 AM CDT [facility] BUN 11 9 - 21 MG/DL 11/02/2016 9:29 AM CDT [facility] CREATININE S/P/B 0.78 0.72 - 1.25 MG/DL 11/02/2016 9:34 AM CDT [facility] SODIUM S/P/B 141 136 - 145 MMOL/L 11/02/2016 9:29 AM CDT [facility] POTASSIUM S/P/B 3.9 3.5 - 5.1 MMOL/L 11/02/2016 9:29 AM CDT [facility] CHLORIDE S/P/B 109(H) 98 - 107 MMOL/L 11/02/2016 9:29 AM CDT [facility] CO2 26.0 22.0 - 29.0 MMOL/L 11/02/2016 9:29 AM CDT [facility] CALCIUM S/P/B 9.1 8.4 - 10.2 MG/DL 11/02/2016 9:29 AM CDT [facility] BILIRUBIN TOTAL S/P/B 1.2 0.2 - 1.2 MG/DL 11/02/2016 9:29 AM CDT [facility] TOTAL PROTEIN S/P/B 6.1 6.0 - 8.3 G/DL 11/02/2016 9:29 AM CDT [facility] ALBUMIN S/P/B 3.4(L) 3.5 - 5.2 G/DL 11/02/2016 9:29 AM CDT [facility] AST 48(H) 5 - 34 U/L 11/02/2016 9:29 AM CDT [facility] ALT 61(H) 0 - 55 U/L 11/02/2016 9:29 AM CDT [facility] ALKALINE PHOSPHATASE S/P/B 67 50 - 136 U/L 11/02/2016 9:29 AM CDT [facility] OSMOLALITY (CALC) 287 275 - 300 MOSM/KG 11/02/2016 9:29 AM CDT [facility] A/G RATIO 1.3 1.0 - 1.6 RATIO 11/02/2016 9:29 AM T [facility] BUN CREATININE RATIO 14.1 12 - 20 11/02/2016 9:34 AM T [facility] ANION GAP 6.0(L) 7 - 16 MMOL/L 11/02/2016 9:29 AM T [facility] EGFR NON-AFR. AMER. >60 >60 ML/MIN/1.7 3 M2 11/02/2016 9:34 AM T [facility] EGFR AFR. AMER. >60 >60 ML/MIN/1.7 3 M2 11/02/2016 9:34 AM T [facility] 11/02/2016 9:04 AM CDT 11/02/2016 9:07 AM CDT us Generic Conversion Md [facility] Final R esult [facility] [address] [place] [address], * (ABNORMAL) CBC W/DIFF AUTOMATED (11/02/2016 9:04 AM CDT) WBC 3.7(L) 4.5 - 10.8 x10'3/uL 11/02/2016 9:26 AM CDT [facility] RBC 4.35(L) 4.50 - 6.10 x10'6/uL 11/02/2016 9:26 AM CDT [facility] HGB 12.5(L) 13.0 - 18.0 G/DL 11/02/2016 9:26 AM CDT [facility] HCT 35.9(L) 37.0 - 52.0 % 11/02/2016 9:26 AM CDT [facility] MCV 82.5 78.0 - 100.0 FL 11/02/2016 9:26 AM CDT [facility] MCH 28.7 27.0 - 31.0 PG 11/02/2016 9:26 AM CDT [facility] MCHC 34.8 33.0 - 36.0 G/DL 11/02/2016 9:26 AM CDT [facility] RDW 14.6(H) 11.5 - 14.5 % 11/02/2016 9:26 AM CDT [facility] PLT 78(L) 150 - 350 x10'3/uL 11/02/2016 9:26 AM CDT [facility] MPV 10.6(H) 7.4 - 10.4 FL 11/02/2016 9:26 AM CDT [facility] SEG NEUTROPHILS 63.9 % 7 9:42 AM CDT [facility] LYMPHOCYTES 22.5 % 11/02/2016 9:42 AM CDT [facility] MONOCYTES 9.8 % 11/02/2016 9:42 AM CDT [facility] EOSINOPHILS 3.0 % 11/02/2016 9:42 AM CDT [facility] BASOPHILS 0.5 % 11/02/2016 9:42 AM CDT [facility] IMMATURE GRANS % 0.3 % 11/03/19 17 9:42 AM CDT [facility] NRBC 0.0 % 11/02/2016 9:42 AM CDT [facility] ABS. NEUTROPHILS 2.36 1.60 - 8.30 x10'3/uL 11/02/2016 9:42 AM CDT [facility] ABS. LYMPHOCYTES 0.83 0.80 - 4.70 x10'3/uL 11/02/2016 9:42 AM CDT [facility] ABS. MONOCYTES 0.36 0.00 - 1.50 x10'3/uL 11/02/2016 9:42 AM CDT [facility] ABS. EOSINOPHILS 0.11 0.00 - 0.40 x10'3/uL 11/02/2016 9:42 AM CDT [facility] ABS. BASOPHILS 0.02 0.00 - 0.20 x10'3/uL 11/02/2016 9:42 AM CDT [facility] ABS. IMMATURE GRANULOCYTES 0.01 0.00 - 0.03 x10'3/uL 11/02/2016 9:42 AM CDT [facility] ABS. NUCLEATED RBC'S 0.00 0.00 x10'3/uL 11/02/2016 9:42 AM CDT [facility] PLT MORPH. DECREASED 11/02/2016 9:42 AM CDT [facility] RBC MORPHOLOGY NORMAL 11/02/2016 9:42 AM CDT [facility] OTHER (type in comments) 11/02/2016 9:04 AM CDT 11/02/2016 9:07 AM CDT Comment:WHOLE BLOOD SAMPLE us Generic Conversion Md [facility] Final R esult [facility] [address] [place] [address], * CARDIAC PROFILE (11/02/2016 9:04 AM CDT) CPK 76 30 - 200 U/L 11/02/2016 9:34 AM CDT [facility] CK-MB 1.9 0.0 - 3.4 NG/ML 11/02/2016 9:34 AM CDT [facility] CK INDEX 2.5 % 11/02/2016 9:34 AM CDT [facility] Comment: A CK-MB OF >5 NG/ML AND A CK-MB RELATIVE INDEX OF >4% IS SUGGESTED BEING CONSISTENT WITH ACUTE MYOCARDIAL INFARCTION. TROPONIN I 0.021 0.000 - 0.028 NG/ML 11/02/2016 9:34 AM CDT [facility] Comment: =INDETERMINATE: 0.029-<0.300 NG/ML=PRESUMPTIVE AMI: GREATER THAN OR EQUAL TO 0.300 NG/ML=CONDITIONS RESULTING IN MYOCARDIAL CELL DAMAGE CAN POTENTIALLY INCREASE LEVELS ??ABOVE THE EXPECTED RANGE. SERUM OR PLASMA SPECIMEN / Unknown 11/02/2016 9:04 AM CDT 11/02/2016 9:07 AM CDT us Generic Conversion Md [facility] Final R jaziel Performing Organization Address City/[facility]/ZIP Co de Phone Number [facility] [address] [place] [address], * PRO-BRAIN NATRIURETIC PEPTIDE (11/02/2016 9:04 AM CDT) B TYPE NATRIURETIC PEPTIDE 39 <100 PG/ML 11/02/2016 9:32 AM CDT [facility] WHOLE BLOOD SPECIMEN / Unknown 11/02/2016 9:04 AM CDT 11/02/2016 9:07 AM CDT us Generic Conversion Md [facility] William R jazile Performing Organization Address City/[facility]/ZIP Co de Phone Number [facility] [address] [place] [address], * BETA-HYDROXYBUTYRATE (11/02/2016 9:04 AM CDT) BETA-HYDROXYBUT YRATE 0.1 0.0 - 0.3 MMOL/L 11/02/2016 9:21 AM CDT [facility] SERUM OR PLASMA SPECIMEN / Unknown 11/02/2016 9:04 AM CDT 11/02/2016 9:07 AM CDT us Generic Conversion Md [facility] Final R esult Performing Organization Address City/[facility]/ZIP Co de Phone Number [facility] [address] [place] [address], [place] [phone] * (ABNORMAL) AMMONIA (11/02/2016 9:04 AM CDT) AMMONIA 127(H) 18 - 72 UMOL/L 11/02/2016 9:22 AM CDT [facility] PLASMA SPECIMEN / Unknown 11/02/2016 9:04 AM CDT 11/02/2016 9:07 AM CDT us Generic Conversion Md [facility] Final R jaziel Performing Organization Address [facility]/ZIP Co de Phone Number [facility] [address] [place] [address], [place] [phone] documented in this encounter Visit Diagnoses Diagnosis Shortness of breath documented in this encounter
--- OUTSIDE RECORDS SUMMARY | 2024-04-19 22:44 | XMS_ITS | Encounter Summary ---
Author Organization [facility] Address [address] [place] [address]. [place], [place] [address] [place] [address] Care Team Providers Care Claims Director Name Role Phone Unavailable Primary Care Provider Unavailabl e Encounter Details Date Type Department Care Team (Latest Contact Info) Description 10/15/2016 Abstract [facility] Social History Tobacco Use Types Packs/Day Years Used Date Smoking Tobacco: Never Assessed Sex and Gender Information Value Date Recorded Sex Assigned at Not on file Legal Sex Male 9:36 PM CDT Gender Identity Not on file Sexual Orientation Straight 03/02/2019 9: 44 PM CDT documented as of this encounter Progress Notes * Sarina Dotson Md, MD - 10/15/2016 1:56 PM CDT Message Recorded as Task Date: 10/09/2016 07:28 PM, Created By: Eva Power Task Name: Call Back Assigned To: [facility] Nurse Team Regarding Patient: Camilo Curry, Status: Active Comment: Eva Power - 09 Oct 2016 7:28 PM TASK CREATED Let the pt know when uses up Lantus and Humalog and Tradjenta, can stop them all. Will start new insulin Humulin U-500 R 100 units before each meal, send BG in 2 weeks after. Ying Mujica - 15 Oct 2016 1:56 PM TASK EDITED Pt notified and he will call when he gets the script for instructions. Signatures Electronically signed by : Ying Mujica L.P.N.; Oct 15 2016 1:56PM CHAINSAW MECHANIC (Author) documented in this encounter Plan of Treatment Upcoming Encounters Date Type Department Care Team (Late st Contact Info) Description 05/10/2024 11:40 AM CHAINSAW MECHANIC Office Visit [facility] Medical Group Diabetes and Endocrinology - [address] [phone] Eva Power MD [address] [place] [phone] documented as of this encounter Visit Diagnoses Not on filedocumented in this encounter
--- OUTSIDE RECORDS SUMMARY | 2024-04-19 22:44 | XMS_ITS | Encounter Summary ---
Author Organization [facility] Address [address] [place] [address]. [place] [address] [place] [address] Care Team Providers Care Switch Coupler Name Role Phone Unavailable Primary Care Provider Unavailabl e Encounter Details Date Type Department Care Team (Latest Contact Info) Description 09/09/2016 Abstract [facility] Social History Tobacco Use Types [...] Contact Info) Description 05/10/2024 11:40 AM MANAGER LOCAL Office Visit [facility] Medical [facility] Diabetes and Endocrinology - [address] [phone] Eva Power MD [address] [place] [phone] documented as of this encounter Visit Diagnoses Not on filedocumented in this encounter
--- OUTSIDE RECORDS SUMMARY | 2024-04-19 22:44 | XMS_ITS | Encounter Summary ---
Author Organization [facility] Address [address] [place] [address]. [place] [address] [place] [address] Care Team Providers Care Compensation Adjuster Name Role Phone Unavailable Primary Care Provider Unavailabl e Encounter Details Date Type Department Care Team (Latest Contact Info) Description 11/03/2016 Abstract [facility] Medical Group Social History Tobacco [...] st Contact Info) Description 05/10/2024 11:40 AM CHIEF RECORDIST Office Visit [facility] Medical Group Diabetes and Endocrinology - [address] [phone] Eva Power MD [address] [place] [phone] documented as of this encounter Visit Diagnoses Not on filedocumented in this encounter
--- OUTSIDE RECORDS SUMMARY | 2024-04-19 22:44 | XMS_ITS | Encounter Summary ---
Author Organization [facility] Address [address] [place] [address]. [place] [address] [place] [address] Care Team Providers Care Doggy Daycare Activities Director Name Role Phone Unavailable Primary Care Provider Unavailabl e Encounter Details Date Type Department Care Team (Late st Contact Info) Description 08/06/2015 Abstract [facility] [address] [facility] [place] [address] Sean Morfin MD [address] [place] [phone] Social History Tobacco Use Types Packs/Day Years [...] st Contact Info) Description 05/10/2024 11:40 AM MAGAZINE DESIGNER Office Visit [facility] Medical Group Diabetes and Endocrinology - [address] [phone] Eva Power MD [address] [place] [address] [place], [place] [phone] documented as of this encounter Visit Diagnoses Diagnosis Secondary esophageal varices without bleeding (CMS/HCC HHS/HCC) Esophageal varices without mention of bleeding in diseases classified elsewhere documented in this encounter
--- OUTSIDE RECORDS SUMMARY | 2024-04-19 22:44 | XMS_ITS | Encounter Summary ---
Author Organization [facility] Address [address] [place] [address]. [place] [address] [place] [address] Care Team Providers Care Quilter Fixer Name Role Phone Unavailable Primary Care Provider Unavailabl e Encounter Details Date Type Department Care Team (Late st Contact Info) Description 08/21/2015 [facility] [address] [facility] [place] [address] Jalen Wilkerson MD Social History Tobacco Use Types Packs/Day [...] st Contact Info) Description 05/10/2024 11:40 AM PRESSER AND BLOCKER KNITTED GOODS Office Visit [facility] Medical Group Diabetes and Endocrinology - [address] [phone] Eva Power MD [address] [place], [place] [address] [place] [address] documented as of this encounter Visit Diagnoses Diagnosis Calculus of gallbladder without cholecystitis without obstruction Calculus of gallbladder without mention of cholecystitis or obstruction documented in this encounter
--- OUTSIDE RECORDS SUMMARY | 2024-04-19 22:44 | XMS_ITS | Encounter Summary ---
Author Organization [facility] Address [address] [place] [address]. [place] [address] [place] [address] Care Team Providers Care Cornetist Name Role Phone Unavailable Primary Care Provider Unavailabl e Encounter Details Date Type Department Care Team (Late st Contact Info) Description 08/28/2015 [facility] [address] [facility] [place] [address] Social History Tobacco Use Types Packs/Day Years [...] st Contact Info) Description 05/10/2024 11:40 AM WHEAT AND OATS FLAKE MILLER Office Visit [facility] Medical Group Diabetes and Endocrinology - [address] [phone] Eva Power MD [address] [place], [place] [address] [address] documented as of this encounter Visit Diagnoses Diagnosis Adverse effect of other opioids, initial encounter documented in this encounter
--- OUTSIDE RECORDS SUMMARY | 2024-04-19 22:44 | XMS_ITS | Encounter Summary ---
Author Organization [facility] Address [address] [place] [address]. [place] [address] [place] [address] Care Team Providers Care District Agent Name Role Phone Unavailable Primary Care Provider Unavailabl e Encounter Details Date Type Department Care Team (Late Contact Info) Description 08/03/2015 Abstract [facility] [place] [address] Sean Morfin MD [address] [place] [phone] Social History Tobacco Use Types Packs/Day Years [...] (Late Contact Info) Description 05/10/2024 11:40 AM PIG FARM MANAGER Office Visit [facility] Medical Group Diabetes and Endocrinology - [address] [phone] Eva Power MD [address] [place] [address] [place], [place] [phone] documented as of this encounter Visit Diagnoses Diagnosis Esophageal varices with bleeding (CMS/HCC HHS/HCC) documented in this encounter
--- OUTSIDE RECORDS SUMMARY | 2024-04-19 22:44 | XMS_ITS | Encounter Summary ---
Author Organization [facility] Address [address] [place] [address]. [place] [address] [place] [address] Care Team Providers Care Direct Care Counselor Name Role Phone Unavailable Primary Care Provider Unavailabl e Encounter Details Date Type Department Care Team (Latest Contact Info) Description 11/17/2016 Abstract [facility] Medical Group Social History [...] st Contact Info) Description 05/10/2024 11:40 AM PUBLIC HEALTH INFORMATICIAN Office Visit [facility] Medical Group Diabetes and Endocrinology - [address] [phone] Eva Power MD [address] [place] [address] [phone] documented as of this encounter Visit Diagnoses Not on filedocumented in this encounter
--- OUTSIDE RECORDS SUMMARY | 2024-04-19 22:44 | XMS_ITS | Encounter Summary ---
Author Organization [facility] Address [address] [place] [address]. [place] [address] [place] [address] Care Team Providers Care Line Walker Name Role Phone Unavailable Primary Care Provider Unavailabl e Encounter Details Date Type Department Care Team (Late st Contact Info) Description 07/09/[address] [facility] [address] [place] [address] Sean Morfin MD [address] [place] [phone] Social History Tobacco Use Types Packs/Day Years [...] (Late Contact Info) Description 05/10/2024 11:40 AM INSTRUCTIONAL DESIGN SPECIALIST Office Visit [facility] Medical Group Diabetes and Endocrinology - [address] [phone] Eva Power MD [address] [place] [address] [place], [place] [phone] documented as of this encounter Visit Diagnoses Diagnosis Obstructive sleep apnea Obstructive sleep apnea (adult) (pediatric) documented in this encounter
--- OUTSIDE RECORDS SUMMARY | 2024-04-19 22:44 | XMS_ITS | Encounter Summary ---
Author Organization [facility] Address [address] [place] [address]. [place], [place] [address] [place] [address] Care Team Providers Care Wire Wrapping Machine Operator Name Role Phone Unavailable Primary Care Provider Unavailabl e Encounter Details Date Type Department Care Team (Latest Contact Info) Description 01/01/2015 Abstract [facility] Ole Jones MD Social History Tobacco Use Types Packs/Day [...] st Contact Info) Description 05/10/2024 11:40 AM MICROSOFT DYNAMICS CONSULTANT Office Visit [facility] Medical Group Diabetes and Endocrinology - [address] [phone] Eva Power MD [address] [place] [phone] documented as of this encounter Visit Diagnoses Not on filedocumented in this encounter
--- OUTSIDE RECORDS SUMMARY | 2024-04-19 22:44 | XMS_ITS | Encounter Summary ---
Author Organization [facility] Address [address] [place] [address]. [place] [address] [place] [address] Care Team Providers Care Needle Grinder Name Role Phone Unavailable Primary Care Provider Unavailabl e Encounter Details Date Type Department Care Team (Late Contact Info) Description 11/13/2016 Abstract [facility] [address] [place] [address] [place] [address] Berhane Lui MD [facility] [address] [address] Social History Tobacco Use Types Packs/Day Years [...] (Late Contact Info) Description 05/10/2024 11:40 AM MIDDLE SCHOOL SCIENCE TEACHER Office Visit [facility] Medical Group Diabetes and Endocrinology - [address] [phone] Eva Power MD [address] [place] [phone] documented as of this encounter Procedures Procedure Name Priority Date/Time Associated Diagnosis Comments POCT GLUCOSE - ANDERSON DOCKED DEVICE Routine 11/13/2016 10:13 PM CDT URINALYSIS STAT 11/13/2016 9:22 PM CDT POCT GLUCOSE - ANDERSON DOCKED DEVICE Routine 11/13/2016 9:13 PM CDT BETA-HYDROXYBUTYRATE STAT 11/13/2016 9:04 PM CDT COMPREHENSIVE METABOLIC PANEL STAT 11/13/2016 9:04 PM CDT CBC W/DIFF AUTOMATED STAT 11/13/2016 9:04 PM CDT documented in this encounter Results * (ABNORMAL) POCT glucose (11/13/2016 10:13 PM CDT) GLUCOSE POC 317(H) 70 - 99 MG/DL 11/13/2016 10:16 PM CDT [facility] ORDERS INTERFACE Comment:Notify Doctor 11/13/2016 10:1 3 PM CDT 11/13/2016 10:16 PM CDT us Generic Conversion Md RED POCT ORDERABLES - DEVIC E Final Result [facility] ORDERS INTERFACE US * (ABNORMAL) URINALYSIS (11/13/2016 9:22 PM CDT) COLOR (U) YELLOW 11/13/2016 9:41 PM CDT [facility] TRANSPARENCY CLEAR 11/13/2016 9:41 PM CDT [facility] SPECIFIC GRAVITY (U) 1.020 1.000 - 1.025 11/13/2016 9:41 PM CDT [facility] U PH 5.5 5.0 - 8.0 11/13/2016 9:41 PM CDT [facility] LEUKOCYTES (U) NEGATIVE NEGATIVE 11/13/2016 9:41 PM CDT [facility] NITRITES NEGATIVE NEGATIVE 11/13/2016 9:41 PM CDT [facility] PROTEIN (U) NEGATIVE NEGATIVE 11/13/2016 9:41 PM CDT [facility] URINE GLUCOSE 3+(A) NEGATIVE 11/13/2016 9:41 PM CDT [facility] KETONES MG/DL (U) NEGATIVE NEGATIVE 11/13/2016 9:41 PM CDT [facility] UROBILINOGEN 1.0(H) <1.0 EU/DL 11/13/2016 9:41 PM CDT [facility] BILIRUBIN (U) NEGATIVE NEGATIVE 11/13/2016 9:41 PM CDT [facility] BLOOD (U) NEGATIVE NEGATIVE 11/13/2016 9:41 PM CDT [facility] WBC/HPF 0-5 0 - 5 /HPF 11/13/2016 9:41 PM CDT [facility] RBC/HPF 0-5 0 - 5 /HPF 11/13/2016 9:41 PM CDT [facility] EPI/HPF OCCASIONAL /LPF 11/13/2016 9:41 PM CDT [facility] BACTERIA (U) TRACE /HPF 11/13/2016 9:41 PM CDT [facility] 11/13/2016 9:22 PM CDT 11/13/2016 9:31 PM CDT us Generic Conversion Md RED URINE ORDERABLES Final Result [facility] [place] [address], * (ABNORMAL) POCT glucose (11/13/2016 9:13 PM CDT) [facility] GLUCOSE POC 319(H) 70 - 99 MG/DL 11/13/2016 9:21 PM CDT [facility] ORDERS INTERFACE Comment:Notify Doctor 11/13/2016 9:13 PM CDT 11/13/2016 9:20 PM CDT us Generic Conversion Md RED POCT ORDERABLES - DEVIC E Final Result [facility] ORDERS INTERFACE US * (ABNORMAL) COMPREHENSIVE METABOLIC PANEL (11/13/2016 9:04 PM CDT) GLUCOSE 379(H) 70 - 99 MG/DL 11/13/2016 9:30 PM CDT [facility] BUN 11 9 - 21 MG/DL 11/13/2016 9:30 PM CDT [facility] CREATININE S/P/B 1.10 0.72 - 1.25 MG/DL 11/13/2016 9:30 PM CDT [facility] SODIUM S/P/B 141 136 - 145 MMOL/L 11/13/2016 9:30 PM CDT [facility] POTASSIUM S/P/B 3.9 3.5 - 5.1 MMOL/L 11/13/2016 9:30 PM CDT [facility] CHLORIDE S/P/B 108(H) 98 - 107 MMOL/L 11/13/2016 9:30 PM CDT [facility] CO2 24.0 22.0 - 29.0 MMOL/L 11/13/2016 9:30 PM CDT [facility] CALCIUM S/P/B 8.5 8.4 - 10.2 MG/DL 11/13/2016 9:30 PM CDT [facility] BILIRUBIN TOTAL S/P/B 1.3(H) 0.2 - 1.2 MG/DL 11/13/2016 9:30 PM CDT [facility] TOTAL PROTEIN S/P/B 6.4 6.0 - 8.3 G/DL 11/13/2016 9:30 PM T [facility] ALBUMIN S/P/B 3.4(L) 3.5 - 5.2 G/DL 11/13/2016 9:30 PM CDT [facility] AST 43(H) 5 - 34 U/L 11/13/2016 9:30 PM CDT [facility] ALT 54 0 - 55 U/L 11/13/2016 9:30 PM CDT [facility] ALKALINE PHOSPHATASE S/P/B 87 50 - 136 U/L 11/13/2016 9:30 PM CDT [facility] OSMOLALITY (CALC) 296 275 - 300 MOSM/KG 11/13/2016 9:30 PM CDT [facility] A/G RATIO 1.1 1.0 - 1.6 RATIO 11/13/2016 9:30 PM CDT [facility] BUN CREATININE RATIO 10.0(L) 12 - 20 11/13/2016 9:30 PM CDT [facility] ANION GAP 9.0 7 - 16 MMOL/L 11/13/2016 9:30 PM CDT [facility] EGFR NON-AFR. AMER. >60 >60 ML/MIN/1.7 3 M2 11/13/2016 9:30 PM CDT [facility] EGFR AFR. AMER. >60 >60 ML/MIN/1.7 3 M2 11/13/2016 9:30 PM CDT [facility] 11/13/2016 9:04 PM CDT 11/13/2016 9:09 PM CDT us Generic Conversion Md RED LABORATORY Final R esult [facility] [address] [employer] [place] [id number], * (ABNORMAL) CBC W/DIFF AUTOMATED (11/13/2016 9:04 PM CDT) WBC 3.6(L) 4.5 - 10.8 x10'3/uL 11/13/2016 9:21 PM CDT [facility] RBC 4.28(L) 4.50 - 6.10 x10'6/uL 11/13/2016 9:21 PM CDT [facility] HGB 12.6(L) 13.0 - 18.0 G/DL 11/13/2016 9:21 PM CDT [facility] HCT 35.5(L) 37.0 - 52.0 % 11/13/2016 9:21 PM CDT [facility] MCV 82.9 78.0 - 100.0 FL 11/13/2016 9:21 PM CDT [facility] MCH 29.4 27.0 - 31.0 PG 11/13/2016 9:21 PM CDT [facility] MCHC 35.5 33.0 - 36.0 G/DL 11/13/2016 9:21 PM CDT [facility] RDW 15.2(H) 11.5 - 14.5 % 11/13/2016 9:21 PM CDT [facility] PLT 84(L) 150 - 350 x10'3/uL 11/13/2016 9:21 PM CDT [facility] MPV 10.6(H) 7.4 - 10.4 FL 11/13/2016 9:21 PM CDT [facility] SEG NEUTROPHILS 64.1 % 7 9:35 PM CDT [facility] LYMPHOCYTES 23.1 % 11/13/2016 9:35 PM CDT [facility] MONOCYTES 9.5 % 11/13/2016 9:35 PM CDT [facility] EOSINOPHILS 2.2 % 11/13/2016 9:35 PM CDT [facility] BASOPHILS 0.8 % 11/13/2016 9:35 PM CDT [facility] IMMATURE GRANS % 0.3 % 11/14/19 17 9:35 PM CDT [facility] NRBC 0.0 % 11/13/2016 9:35 PM CDT [facility] ABS. NEUTROPHILS 2.31 1.60 - 8.30 x10'3/uL 11/13/2016 9:35 PM CDT [facility] ABS. LYMPHOCYTES 0.83 0.80 - 4.70 x10'3/uL 11/13/2016 9:35 PM CDT [facility] ABS. MONOCYTES 0.34 0.00 - 1.50 x10'3/uL 11/13/2016 9:35 PM CDT [facility] ABS. EOSINOPHILS 0.08 0.00 - 0.40 x10'3/uL 11/13/2016 9:35 PM CDT [facility] ABS. BASOPHILS 0.03 0.00 - 0.20 x10'3/uL 11/13/2016 9:35 PM CDT [facility] ABS. IMMATURE GRANULOCYTES 0.01 0.00 - 0.03 x10'3/uL 11/13/2016 9:35 PM CDT [facility] ABS. NUCLEATED RBC'S 0.00 0.00 x10'3/uL 11/13/2016 9:35 PM CDT [facility] PLT MORPH. NORMAL 11/13/2016 9:35 PM CDT [facility] RBC MORPHOLOGY NORMAL 11/13/2016 9:35 PM CDT [facility] OTHER (type in comments) 11/13/2016 9:04 PM CDT 11/13/2016 9:09 PM CDT Comment:WHOLE BLOOD SAMPLE us Generic Conversion Md RED LABORATORY Final R esult Performing Organization Address [facility]/[place] Co de Phone Number [facility] [address] [place] [address], * BETA-HYDROXYBUTYRATE (11/13/2016 9:04 PM CDT) BETA-HYDROXYBUT YRATE 0.1 0.0 - 0.3 MMOL/L 11/13/2016 9:17 PM CDT [facility] SERUM OR PLASMA SPECIMEN / Unknown 11/13/2016 9:04 PM CDT 11/13/2016 9:09 PM CDT us Generic Conversion Md RED LABORATORY Final R esult Performing Organization Address City/[facility]/ZIP Co de Phone Number [facility] [address] [place] [address], documented in this encounter Visit Diagnoses Diagnosis Type 2 diabetes mellitus with hyperglycemia (CMS/HCC HHS/HCC) Type II or unspecified type diabetes mellitus without mention of complication, not stated as uncontrolled documented in this encounter
--- OUTSIDE RECORDS SUMMARY | 2024-04-19 22:44 | XMS_ITS | Encounter Summary ---
Author Organization [facility] Address [address] [place] [address]. [place] [address] [place] [address] Care Team Providers Care Aircraft Painter Apprentice Name Role Phone Unavailable Primary Care Provider Unavailabl e Encounter Details Date Type Department Care Team (Late Contact Info) Description 08/01/2015 Abstract [facility] [address] [place] [address] Gerry Faustin MD [address] [place] [address] Social History Tobacco Use Types Packs/Day [...] (Late Contact Info) Description 05/10/2024 11:40 AM COUNTER HELP Office Visit [facility] Medical Group Diabetes and Endocrinology - [address] [phone] Eva Power MD [address] [place] [phone] documented as of this encounter Visit Diagnoses Diagnosis Hemoptysis Hemoptysis, unspecified documented in this encounter
--- OUTSIDE RECORDS SUMMARY | 2024-04-19 22:44 | XMS_ITS | Encounter Summary ---
Author Organization [facility] Address [address] [place] [address]. [place] [address] [place] [address] Care Team Providers Care Private Investigator Name Role Phone Unavailable Primary Care Provider Unavailabl e Encounter Details Date Type Department Care Team (Latest Contact Info) Description 11/13/2016 Abstract [facility] Medical Group Eva Power MD [address] [place] [address] Social History Tobacco Use Types Packs/Day Years Used Date Smoking Tobacco: Never Assessed Sex and Gender Information Value Date Recorded Sex Assigned at Not on file Legal Sex Male 9:36 PM CDT Gender Identity Not on file Sexual Orientation Straight 03/02/2019 9: 44 PM CDT documented as of this encounter Progress Notes * Eva Power MD - 11/13/2016 5:19 PM CDT Spoke to the patient tonight. Reports having high BG 500 now. Had 2 doses of Humulin U-500 R 100 units at 6:30 am, and 11 am. Rec take 150 units now. Call me if BG not better by 8-9 pm, or go to the ER if having nausea, vomiting, or feeling weak. Drink plenty of water. Electronically signed by:Eva Power M.D. Dec 09 2016 10:11PM PATIENT INTAKE COORDINATOR Author documented in this encounter Plan of Treatment Upcoming Encounters Date Type Department Care Team (Late st Contact Info) Description 05/10/2024 11:40 AM PATIENT INTAKE COORDINATOR Office Visit [facility] Medical Group Diabetes and Endocrinology - [address] [phone] Eva Power MD [address] [place], [place] [phone] documented as of this encounter Visit Diagnoses Not on filedocumented in this encounter
--- OUTSIDE RECORDS SUMMARY | 2024-04-19 22:44 | XMS_ITS | Encounter Summary ---
Author Organization [facility] Address [address] [place] [address]. [place] [address] [place] [address] Care Team Providers Care Rn Telephone Triage Name Role Phone Unavailable Primary Care Provider Unavailabl e Encounter Details Date Type Department Care Team (Late Contact Info) Description 10/02/2015 Abstract [place] [address] [facility] [place] [address] Jorge Solis, DO [address] [place] [address] Social History Tobacco Use Types Packs/Day Years [...] (Late Contact Info) Description 05/10/2024 11:40 AM PLASTIC OUTFITTER Office Visit [facility] Medical Group Diabetes and Endocrinology - [address] [phone] Eva Power MD [address] [place] [phone] documented as of this encounter Visit Diagnoses Diagnosis Acute bronchitis documented in this encounter
--- OUTSIDE RECORDS SUMMARY | 2024-04-19 22:44 | XMS_ITS | Encounter Summary ---
Author Organization [facility] Address [address] [place] [address]. [place] [address] [place] [address] Care Team Providers Care Service Writer Name Role Phone Unavailable Primary Care Provider Unavailabl e Encounter Details Date Type Department Care Team (Latest Contact Info) Description 08/20/2016 Abstract [facility] Medical Group Social History Tobacco [...] st Contact Info) Description 05/10/2024 11:40 AM EXAMINER RATING CLERK Office Visit [facility] Medical Group Diabetes and Endocrinology - [address] [phone] Eva Power MD [address] [place] [phone] documented as of this encounter Visit Diagnoses Not on filedocumented in this encounter
--- OUTSIDE RECORDS SUMMARY | 2024-04-19 22:44 | XMS_ITS | Encounter Summary ---
Author Organization [facility] Address [address] [place] [address]. [place], [place] [address] [place] [address] Care Team Providers Care Road Supervisor Of Engines Name Role Phone Unavailable Primary Care Provider Unavailabl e Encounter Details Date Type Department Care Team (Latest Contact Info) Description 10/17/2016 Abstract [facility] Social History Tobacco Use Types Packs/Day Years Used Date Smoking Tobacco: Never Assessed Sex and Gender Information Value Date Recorded Sex Assigned at Not on file Legal Sex Male 9:36 PM CDT Gender Identity Not on file Sexual Orientation Straight 03/02/2019 9: 44 PM CDT documented as of this encounter Progress Notes * Generic Conversion MD Franco - 10/17/2016 2:12 AM CDT Message Recorded as Task Date: 10/27/2016 12:00 PM, Created By: Felicitas Espinoza Task Name: Call Back Assigned To: [facility] Nurse Team Regarding Patient: Camilo Curry, Status: In Progress Comment: Felicitas Espinoza - 27 Oct 2016 12:00 PM TASK CREATED Caller: Self; General Medical Question; Patient wants to speak to nurse about new script for insulin. Chantelle Espinoza - 27 Oct 2016 4:07 PM TASK EDITED Left message for a return call to office. Nimco Monroe - 27 Oct 2016 4:37 PM TASK EDITED patient returned call. Chantelle Espinoza - 30 Oct 2016 4:32 PM TASK EDITED Patient spoke with Dr. Power in regards to this task as of 10-29-16 Signatures Electronically signed by : Chantelle Espinoza, ; Oct 30 2016 4:32PM FISHING TOOL OPERATOR (Author) documented in this encounter Plan of Treatment Upcoming Encounters Date Type Department Care Team (Late st Contact Info) Description 05/10/2024 11:40 AM FISHING TOOL OPERATOR Office Visit [facility] Medical Group Diabetes and Endocrinology - [address] [phone] Eva Power MD [address] [place] [address] [phone] documented as of this encounter Visit Diagnoses Not on filedocumented in this encounter
--- OUTSIDE RECORDS SUMMARY | 2024-04-19 22:44 | XMS_ITS | Encounter Summary ---
Author Organization [facility] Address [address] [place] [address]. [place] [address] [place] [address] Care Team Providers Care Music Arranger Name Role Phone Unavailable Primary Care Provider Unavailabl e Encounter Details Date Type Department Care Team (Late Contact Info) Description 04/07/2016 Abstract [facility] [address] [place] [address] Sean Morfin MD [address] [place] [phone] Social History Tobacco Use Types Packs/Day Years [...] (Late Contact Info) Description 05/10/2024 11:40 AM BUSINESS SYSTEM CONSULTANT Office Visit [facility] Medical Group Diabetes and Endocrinology - [address] [phone] Eva Power MD [address] [place] [phone] documented as of this encounter Visit Diagnoses Diagnosis Osteoarthritis Osteoarthrosis, unspecified whether generalized or localized, unspecified site documented in this encounter
--- OUTSIDE RECORDS SUMMARY | 2024-04-19 22:44 | XMS_ITS | Encounter Summary ---
Author Organization [facility] Address [address] [place] [address]. [place] [address] [place] [address] Care Team Providers Care Health It Specialist Name Role Phone Unavailable Primary Care Provider Unavailabl e Encounter Details Date Type Department Care Team (Late Contact Info) Description 11/29/2015 Abstract [facility] [facility] [place] [address] Sean Morfin MD [address] [place] [phone] Social History Tobacco Use Types Packs/Day Years [...] (Late Contact Info) Description 05/10/2024 11:40 AM PCAS Office Visit [facility] Medical Group Diabetes and Endocrinology - [address] [phone] Eva Power MD [address] [place] [address] [place], [place] [phone] documented as of this encounter Visit Diagnoses Diagnosis Syncope and collapse documented in this encounter
--- OUTSIDE RECORDS SUMMARY | 2024-04-19 22:44 | XMS_ITS | Encounter Summary ---
Author Organization [facility] Address [address] [place] [address]. [place] [address] [place] [address] Care Team Providers Care Tomography Technologist Name Role Phone Unavailable Primary Care Provider Unavailabl e Encounter Details Date Type Department Care Team (Latest Contact Info) Description 09/14/2016 Abstract [facility] Social History Tobacco Use Types [...] st Contact Info) Description 05/10/2024 11:40 AM MACHINE BENDER Office Visit [facility] Medical [facility] Diabetes and Endocrinology - [address] [phone] Eva Power MD [address] [place] [phone] documented as of this encounter Visit Diagnoses Not on filedocumented in this encounter
--- OUTSIDE RECORDS SUMMARY | 2024-04-19 22:44 | XMS_ITS | Encounter Summary ---
Author Organization [facility] Address [address] [place] [address]. [place] [address] [place] [address] Care Team Providers Care Dietetic Intern Name Role Phone Unavailable Primary Care Provider Unavailabl e Encounter Details Date Type Department Care Team (Latest Contact Info) Description 08/14/2016 Abstract [facility] Medical Group Social History Tobacco Use [...] st Contact Info) Description 05/10/2024 11:40 AM CHARGEMASTER ANALYST Office Visit [facility] Medical Group Diabetes and Endocrinology - [address] [phone] Eva Power MD [address] [place] [address] [phone] documented as of this encounter Visit Diagnoses Not on filedocumented in this encounter
--- OUTSIDE RECORDS SUMMARY | 2024-04-19 22:44 | XMS_ITS | Encounter Summary ---
Author Organization [facility] Address [address] [place] [address]. [place] [address] [place] [address] Care Team Providers Care Promotions Manager Name Role Phone Unavailable Primary Care Provider Unavailabl e Encounter Details Date Type Department Care Team (Late st Contact Info) Description 02/28/[address] [facility] [address] [place] [address] Arian Swartz MD [address] [place] [phone] Social History Tobacco Use Types Packs/Day Years [...] st Contact Info) Description 05/10/2024 11:40 AM AIR CARGO GROUND CREW SUPERVISOR Office Visit [facility] Medical Group Diabetes and Endocrinology - [place] [address] [place] [phone] Eva Power MD [facility] [facility] [address] [place], [place] [address] documented as of this encounter Visit Diagnoses Not on filedocumented in this encounter
--- OUTSIDE RECORDS SUMMARY | 2024-04-19 22:44 | XMS_ITS | Encounter Summary ---
Author Organization [facility] Address [address] [place] [address]. [place], [place] [address] [place] [address] Care Team Providers Care Retread Operator Name Role Phone Unavailable Primary Care Provider Unavailabl e Encounter Details Date Type Department Care Team (Latest Contact Info) Description 02/22/2015 Abstract [facility] Ole Jones MD Social History [...] Sign Reading Time Taken Comments Blood Pressure 120/81 02/22/2015 3:29 PM CDT Pulse - - Temperature - - Respiratory Rate - - Oxygen Saturation - - Inhaled Oxygen Concentration - - Weight 104.3 kg (230 lb) 02/22/2015 3:29 PM CDT Height 170.2 cm (5' 7 ) 02/22/2015 3:29 PM CDT Body Mass Index 36.02 02/22/2015 3:29 PM CDT documented in this encounter Progress Notes * Ole Jones MD - 02/22/2015 1:45 PM CDT Reason For Visit Chronic Recheck Visit History of Present Illness HPI Free Text: The patient is seen for a followup his last MRI scan shows that he has some arthritis a L3-L4 [place] with the pain in the right L4-L5 GERD dermatome. And nerve conduction Zilpha are normal he also has some pain on the left sides but most of her pain is radicular in the right side than Review of Systems Constitutional: negative. Head and Face: negative. Eyes: negative. ENT: negative. Cardiovascular: negative. Respiratory: negative. Gastrointestinal: negative. Genitourinary: negative. Musculoskeletal: as noted in HPI. Neurological: as noted in HPI. Psychiatric: negative. Endocrine: negative. Hematologic and Lymphatic: negative. Active Problems 1. Diabetes (250.00) (E11.9) 2. Lumbar radiculopathy (724.4) (M54.16) 3. Lumbar spinal stenosis (724.02) (M48.06) Past Medical History 1. History of Anxiety and depression (300.4) (F41.8) Surgical History 1. Denied: History of Surgery Family History Mother 1. Family history of malignant neoplasm (V16.9) (Z80.9) Father 2. Family history of malignant neoplasm (V16.9) (Z80.9) Family History 3. Family history of hypertension (V17.49) (Z82.49) Social History ?? Never a smoker ?? No alcohol use Current Meds 1. Divalproex Sodium 500 MG Oral Tablet Delayed Release; Therapy: [id number] to Recorded 2. Hydrocodone-Acetaminophen 10-325 MG Oral Tablet; Therapy: (Recorded:[id number]) to Recorded 3. MetFORMIN HCl - 500 MG Oral Tablet; Therapy: (Recorded:[id number]) to Recorded 4. Xanax TABS (ALPRAZolam); Therapy: (Recorded:[id number]) to Recorded Allergies 1. azithromycin 2. esomeprazole 3. nisoldipine 4. Penicillins 5. sulfa Vitals Recorded: 22Feb2015 03:29PM Systolic 120 Diastolic 81 Height 5 ft 7 in Weight 230 lb BMI Calculated 36.02 BSA Calculated 2.15 Physical Exam Neurological: cranial nerves 2-12 were intact, deep tendon reflexes were 2+ and symmetric and the sensory exam was normal to light touch and pinprick. Musculoskeletal Gait and station: Normal. Involuntary movements: Negative. Neurologic: Mental status:. The patient's orientation, memory, attention, language and furnd of knowledge were normal. Deep tendon reflexes: Procedure Nerve Conduction Study L Common Peroneal Conduction Mohit 44.6 Motor Latency 4.6 F-Wave 45 L. Posterior Tibial Conduction Mohit 40.2 Motor Latency 4.2 L. Femoral Conduction Mohit 60.3 L. Sural Sensory not elicited R. Common Peroneal Conduction Mohit 40.8 Motor Latency 4.6 F-Wave 48 R. Posterior Tibial Conduction Mohit 38.6 Motor Latency 4.2 R. Femoral Conduction Mohit 62.9 R. Sural Sensory Not Elicited Amplitude of the M wave is normal. Paraspinous, quadriceps, tibias anterior, extensor hallicus longus, extensor digitorium brevis, gastrocnemius & soleus, and hamstrings were tested in bilateral lower extremities Procedure: Electromyogram. The procedure's risks, benefits and alternatives were discussed with the patient. Written consent was obtained prior to the procedure and is detailed in the patient's record. Prior to the start of the procedure a time out was taken and the identity of the patient was confirmed via name and date of with the patient. The correct site and the procedure to be performed were confirmed and the site marked as appropriate. The correct side was confirmed if applicable. Thepositioning of the patient was verified. The availability of the correct equipment was verified. Procedure Note: Findings: nerve conductions are normal but EMG shows mild to moderate right L5 radiculopathy in thequadriceps, tibias anterior extensor hallicus longus, extensor digitorium brevis, gastrocnemius with diminished number jof motor units. Electromyogram activity was abnormal. Post-Procedure: The patient tolerated the procedure well. There were no complications. Counseling The patient was counseled regarding diagnostic results and instructions for management. Assessment 1. Lumbar spinal stenosis (724.02) (M48.06) 2. Lumbar radiculopathy (724.4) (M54.16) Plan Lumbar spinal stenosis 1. Neurosurgery Referral Outpatient eval and treated as needed Status: Need Information - Financial Authorization Requested for: [id number] At request the patient she will be referred to a neurosurgeon and spindle I recommended the name ofDr. Chu he was given a prescription for Ultram 50 mg 1-2 t.i.d. he will be call my office is regarding cultures recommendation for a Renny Vásquez Signatures Electronically signed by : Sean Jones M.D.; Feb 28 2015 10:24AM ROLLING MILL PLUGGER (Author) documented in this encounter Plan of Treatment Upcoming Encounters Date Type Department Care Team (Late st Contact Info) Description 05/10/2024 11:40 AM ROLLING MILL PLUGGER Office Visit [facility] Medical Group Diabetes and Endocrinology - [address] [phone] Eva Power MD [address] [place] [address] [phone] documented as of this encounter Visit Diagnoses Not on filedocumented in this encounter
--- OUTSIDE RECORDS SUMMARY | 2024-04-19 22:44 | XMS_ITS | Encounter Summary ---
Author Organization [facility] Address [address] [place] [address]. [place], [place] [address] [place] [address] Care Team Providers Care Licensed Master Social Worker Name Role Phone Unavailable Primary Care Provider Unavailabl e Encounter Details Date Type Department Care Team (Latest Contact Info) Description 09/08/2016 Abstract [facility] Medical Group [...] Notes * Generic Conversion MD Franco - 09/08/2016 4:14 PM CDT Message Recorded as Task Date: 09/08/2016 09:34 AM, Created By: Chantelle Espinoza Task Name: Call Back Assigned To: [facility] Nurse Team Regarding Patient: Camilo Curry, Status: Active Comment: Chantelle Espinoza - 08 Sep 2016 9:34 AM TASK CREATED Left message for a return call from patient. We have no office notes, no labs, no PCP listed for this patient. Patient is seeing Dr. Power tomorrow at 10:30am. Needing office notes and labs from PCP office, if not recieved today, patient will need to be rescheduled please. Thanks. Chantelle Espinoza - 08 Sep 2016 4:14 PM TASK EDITED Called patient again. /girlfriend of patient answered phone and stated that she already called back and spoke with a nurse stating that they will bring paperwork with them tomorrow at appointment. Nurse voiced understanding, informed sorry for the double call. Women has voiced understanding. Signatures Electronically signed by : Chantelle Espinoza, ; Sep 08 2016 4:15PM PARALEGAL INTERNSHIP (Author) documented in this encounter Plan of Treatment Upcoming Encounters Date Type Department Care Team (Late st Contact Info) Description 05/10/2024 11:40 AM PARALEGAL INTERNSHIP Office Visit [facility] Medical Group Diabetes and Endocrinology - [address] [phone] Eva Power MD [address] [place] [phone] documented as of this encounter Visit Diagnoses Not on filedocumented in this encounter
--- OUTSIDE RECORDS SUMMARY | 2024-04-19 22:44 | XMS_ITS | Encounter Summary ---
Author Organization [facility] Address [address] [place] [address]. [place] [address] [place] [address] Care Team Providers Care Pneumatic Systems Operator Name Role Phone Unavailable Primary Care Provider Unavailabl e Encounter Details Date Type Department Care Team (Late st Contact Info) Description 11/02/2015 Abstract [facility] [address] [facility] [place] [address] Gerry Faustin MD [address] [place] [address] Social History Tobacco Use Types Packs/Day [...] (Late Contact Info) Description 05/10/2024 11:40 AM RN POOL Office Visit [facility] Medical Group Diabetes and Endocrinology - [address] [phone] Eva Power MD [address] [place] [phone] documented as of this encounter Visit Diagnoses Diagnosis Gastrointestinal hemorrhage Hemorrhage of gastrointestinal tract, unspecified documented in this encounter
--- OUTSIDE RECORDS SUMMARY | 2024-04-19 22:44 | XMS_ITS | Encounter Summary ---
Author Organization [facility] Address [address] [place] [address]. [place] [address] [place] [address] Care Team Providers Care Commercial Collections Driver Name Role Phone Unavailable Primary Care Provider Unavailabl e Encounter Details Date Type Department Care Team (Latest Contact Info) Description 09/10/2016 Abstract [facility] Eva Power MD [facility] [place], [place] [phone] Social History Tobacco Use Types Packs/Day Years [...] st Contact Info) Description 05/10/2024 11:40 AM RF ENGINEER Office Visit [facility] Medical Group Diabetes and Endocrinology - [address] [phone] Eva Power MD [facility] [address] [place], [place] [address] documented as of this encounter Visit Diagnoses Not on filedocumented in this encounter
--- OUTSIDE RECORDS SUMMARY | 2024-04-19 22:44 | XMS_ITS | Encounter Summary ---
Author Organization [facility] Address [address] [place] [address]. [place] [address] [place] [address] Care Team Providers Care Locks Tender Name Role Phone Unavailable Primary Care Provider Unavailabl e Encounter Details Date Type Department Care Team (Late st Contact Info) Description 02/02/2014 [facility] [address] [place] [address] , Sarina Dotson MD Social [...] st Contact Info) Description 05/10/2024 11:40 AM PET CARE ASSISTANT Office Visit [facility] Medical Group Diabetes and Endocrinology - [address] [phone] Eva Power MD [address] [place] [address] documented as of this encounter Visit Diagnoses Not on filedocumented in this encounter
--- OUTSIDE RECORDS SUMMARY | 2024-04-19 22:44 | XMS_ITS | Encounter Summary ---
Author Organization [facility] Address [address] [place] [address]. [place] [address] [place] [address] Care Team Providers Care Ux Architect Name Role Phone Unavailable Primary Care Provider Unavailabl e Encounter Details Date Type Department Care Team (Latest Contact Info) Description 11/15/2014 Abstract [facility] Medical Group Social [...] st Contact Info) Description 05/10/2024 11:40 AM SALES OPERATIONS LEAD Office Visit [facility] Medical Group Diabetes and Endocrinology - [address] [phone] Eva Power MD [address] [place] [phone] documented as of this encounter Visit Diagnoses Not on filedocumented in this encounter
--- OUTSIDE RECORDS SUMMARY | 2024-04-19 22:44 | XMS_ITS | Encounter Summary ---
Author Organization [facility] Address [address] [place] [address]. [place] [address] [place] [address] Care Team Providers Care Head Shipper Name Role Phone Unavailable Primary Care Provider Unavailabl e Encounter Details Date Type Department Care Team (Late st Contact Info) Description 10/31/2015 Abstract [facility] [address] [place] [address] Sean Morfin MD [address] [place] [phone] Social History Tobacco Use Types Packs/Day Years [...] st Contact Info) Description 05/10/2024 11:40 AM PHILOSOPHY INSTRUCTOR Office Visit [facility] Medical Group Diabetes and Endocrinology - [address] [phone] Eva Power MD [address] [place] [phone] documented as of this encounter Visit Diagnoses Diagnosis Anemia Anemia, unspecified documented in this encounter
--- OUTSIDE RECORDS SUMMARY | 2024-04-19 22:44 | XMS_ITS | Encounter Summary ---
Author Organization [facility] Address [address] [place] [address]. [place] [address] [place] [address] Care Team Providers Care Field Crop Harvest Worker Name Role Phone Unavailable Primary Care Provider Unavailabl e Encounter Details Date Type Department Care Team (Late st Contact Info) Description 07/01/2013 [facility] [address] [facility] [address] Social History Tobacco Use Types Packs/Day Years [...] st Contact Info) Description 05/10/2024 11:40 AM STEAM PRESSER Office Visit [facility] Medical Group Diabetes and Endocrinology - [address] [phone] Eva Power MD [address] [place], [place] [address] [address] documented as of this encounter Visit Diagnoses Diagnosis Other chest pain documented in this encounter
--- OUTSIDE RECORDS SUMMARY | 2024-04-19 22:44 | XMS_ITS | Encounter Summary ---
Author Organization [facility] Address [address] [place] [address]. [place] [address] [place] [address] Care Team Providers Care Assessment Nurse Name Role Phone Unavailable Primary Care Provider Unavailabl e Encounter Details Date Type Department Care Team (Latest Contact Info) Description 11/21/2016 Abstract [facility] Medical Group Social History Tobacco Use Types [...] st Contact Info) Description 05/10/2024 11:40 AM HEAD OF BUSINESS DEVELOPMENT Office Visit [facility] Medical Group Diabetes and Endocrinology - [address] [phone] Eva Power MD [address] [place] [phone] documented as of this encounter Visit Diagnoses Not on filedocumented in this encounter
--- OUTSIDE RECORDS SUMMARY | 2024-04-19 22:44 | XMS_ITS | Encounter Summary ---
Author Organization [facility] Address [address] [place] [address]. [place] [address] [place] [address] Care Team Providers Care Hair Baler Name Role Phone Unavailable Primary Care Provider Unavailabl e Encounter Details Date Type Department Care Team (Late st Contact Info) Description 09/09/2016 Abstract [facility] Medical Group Diabetes and Endocrinology - [address] [phone] Eva Power MD [address] [place] [phone] Social History Tobacco Use Types Packs/Day Years Used Date Smoking Tobacco: Never Assessed Sex and Gender Information Value Date Recorded Sex Assigned at Not on file Legal Sex Male 9:36 PM CDT Gender Identity Not on file Sexual Orientation Straight 03/02/2019 9: 44 PM CDT documented as of this encounter Last Filed Vital Signs Vital Sign Reading Time Taken Comments Blood Pressure 126/74 09/09/2016 10:29 PM CDT Pulse 100 09/09/2016 10:29 PM CDT Temperature - - Respiratory Rate - - Oxygen Saturation - - Inhaled Oxygen Concentration - - Weight 118.2 kg (260 lb 9.6 oz) 017 10:29 PM CDT Height 172.7 cm (5' 8 ) 09/09/2016 10:2 9 PM CDT Body Mass Index 39.62 09/09/2016 10:29 PM CDT documented in this encounter Progress Notes * Eva Power MD - 09/09/2016 10:30 AM CDT Reason For Visit New Patient Visit Chief Complaint My diabetes is uncontrolled' avg BG 300 (from 145-482), highest - before supper History of Present Illness Diabetes: The patient is being seen for an initial evaluation of Diabetes Mellitus 2. Dx with diabetes in 2011, at first well controlled with A1c <7% on metformin, but uncontrolled in the last 1 yr since dx with liver cirrhosis 2ry to BLAND. Other medical problems include esophageal varices, hepatic encephalopathy, s/p TIPs. Follows with GI in [place] - Dr. Bev Ellis ([facility]) The HbA1c was 7.7% performed on 08/20/16. Hb/Ht 13/36, plt 81 Current treatment includes Lantus (Lantus 55 units BID), Humalog (40 units each meal 3-4 a day ) and Tradjenta 5 mg daily. Source of information reported and indicates that the patient checks his blood sugar three times per day. avg BG 300 (from 145-482), highest - before supper. Caloric intake composed of 3 meals per day:. (No sugar containing beverages) Review of Systems Constitutional: fatigue, but no [...] (I85.00) 2. Hepatic encephalopathy (572.2) (K72.90) 3. 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 Uncontrolled type 2 diabetes mellitus with insulin therapy (250.02,V58.67) (E11.65,Z79.4) Past Medical History 1. History of Esophageal varices with hemorrhage (456.0) (I85.01) 2. History of cholelithiasis (V12.79) (Z87.19) Family History 1. Family history of malignant neoplasm (V16.9) (Z80.9) 2. Family history of malignant neoplasm (V16.9) (Z80.9) 3. Family history of type 2 diabetes mellitus (V18.0) (Z83.3) 4. Family history of malignant neoplasm (V16.9) (Z80.9) Social History ?? Applying for disability ?? Former smoker (V15.82) (Z87.891) ?? quit in 2001 ?? History of illicit drug use (305.90) (Z87.898) ?? last time in 1998, was hospitalized for overdose with amphetamine ? No alcohol use Allergies 1. Azactam 2. aztreonam 3. Ciprofloxacin HCl TABS 4. erythromycin 5. NexIUM 24HR TBEC 6. octreotide 7. Penicillins 8. Sulfa Drugs Vitals Recorded: [id number] 10:29PM Heart Rate 100 Systolic 126 Diastolic 74 O2 Saturation 95 Height 5 ft 8 in Weight 260 lb 9.6 oz BMI Calculated 39.62 BSA Calculated 2.29 Physical Exam Constitutional General appearance: No acute [...] Gait and station: Normal. Muscle strength/tone: Normal. Neurologic Cranial nerves: Cranial nerves 2-12 intact. no tremors. Psychiatric Judgment and insight: Normal. Mood and affect: Normal. Results/Data *Glucose, Whole Blood In Office 09Sep2016 11:22AM Eva Power Test Name Result Flag Reference Glucose Finger Stick 165 mg/dl 70 - 110 mg/dl Counseling The patient was counseled regarding diagnostic results, instructions for management, risk factor reductions, prognosis, patient and family education, impressions, risks and benefits of treatment options and importance of compliance with treatment. Assessment 1. Uncontrolled type 2 diabetes mellitus with insulin therapy (250.02,V58.67) (E11.65,Z79.4) 2. 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 BD Insulin Syringe Ultrafine 30G X 1/2 1 ML Miscellaneous; INJECTING 3 TIMES DAILY Rx By: Eva Power; Dispense: 30 Days ; #:1 X 100 Miscellaneous Box; Refill: 11; For: Uncontrolled type 2 diabetes mellitus with insulin therapy; KATLYN = N; Record 2. HumaLOG KwikPen 100 UNIT/ML Subcutaneous Solution Pen-injector; Inject 50 units before each meal Rx By: Eva Power; Dispense: 0 Days ; #:45 ML; Refill: 5; For: Uncontrolled type 2 diabetes mellitus with insulin therapy; KATLYN = N; Verified Transmission to [facility]; Last Updated By: JacquelineMippin; 09/09/2016 11:48:37 AM 3. *Glucose, Whole Blood In Office; Status:Complete; Done: 09Sep2016 11:22AM Performed:In Office; Due:09Oct2016; Last Updated By:Lena Brambila; 09/09/2016 11:25:07 AM;Ordered; For:Uncontrolled type 2 diabetes mellitus with insulin therapy; Ordered By:Eva Power; Treatment plan was discussed with the patient - will increase prandial insulin Lantus 100 units at night Humalog 50 units with all meals Can take 60 units for BG > 300 If not eating - can take 25 units for BG > 300 Check BG in am, supper, bedtime Fax BG readings in 2 weeks F/up in 3 months Signatures Electronically signed by : Eva Power M.D.; Oct 09 2016 7:20PM OUTSIDE FOOD SERVER (Author) documented in this encounter Plan of Treatment Upcoming Encounters Date Type Department Care Team (Late st Contact Info) Description 05/10/2024 11:40 AM OUTSIDE FOOD SERVER Office Visit [facility] Medical Group Diabetes and Endocrinology - [address] [phone] Eva Power MD [address] [place] [phone] documented as of this encounter Procedures Procedure Name Priority Date/Time Associated Diagnosis Comments GLUCOSE BLOOD, MONITOR DEVICE Routine 09/09/2016 11:22 AM CDT documented in this encounter Results * GLUCOSE BLOOD, MONITOR DEVICE (09/09/2016 11:22 AM CDT) GLUCOSE 165 70 - 110 mg/dl milligrams per deciliter [facility] TO EPIC CONVERSION 09/09/2016 11:2 2 AM CDT 09/09/2016 11:22 AM CDT us Eva Power MD LABORATORY Final Result [facility] TO EPIC CONVERSION documented in this encounter Visit Diagnoses Not on filedocumented in this encounter
--- OUTSIDE RECORDS SUMMARY | 2024-04-19 22:44 | XMS_ITS | Encounter Summary ---
Author Organization [facility] Address [address] [place] [address]. [place] [address] [place] [address] Care Team Providers Care Oil Processing Technician Name Role Phone Unavailable Primary Care Provider Unavailabl e Encounter Details Date Type Department Care Team (Latest Contact Info) Description 09/10/2016 Abstract [facility] Medical Group Social History Tobacco Use Types [...] st Contact Info) Description 05/10/2024 11:40 AM MARBLE FINISHER Office Visit [facility] Medical Group Diabetes and Endocrinology - [address] [phone] Eva Power MD [address] [place] [phone] documented as of this encounter Visit Diagnoses Not on filedocumented in this encounter
--- OUTSIDE RECORDS SUMMARY | 2024-04-19 22:44 | XMS_ITS | Encounter Summary ---
Author Organization [facility] Address [address] [place] [address]. [place] [address] [place] [address] Care Team Providers Care Chief Information Security Officer Name Role Phone Unavailable Primary Care Provider Unavailabl e Encounter Details Date Type Department Care Team (Latest Contact Info) Description 09/23/2016 Abstract [facility] Eva Power MD [facility] [place], [place] [phone] Social History Tobacco Use Types Packs/Day Years [...] st Contact Info) Description 05/10/2024 11:40 AM DELIVERY TECHNICIAN Office Visit [facility] Medical Group Diabetes and Endocrinology - [address] [phone] Eva Power MD [facility] [address] [place], [place] [phone] documented as of this encounter Visit Diagnoses Not on filedocumented in this encounter
--- OUTSIDE RECORDS SUMMARY | 2024-04-19 22:44 | XMS_ITS | Encounter Summary ---
Author Organization [facility] Address [address] [place] [address]. [place], [place] [id number] [place] [address] Care Team Providers Care Doctor Osteopathic Name Role Phone Unavailable Primary Care Provider Unavailabl e Encounter Details Date Type Department Care Team (Latest Contact Info) Description 12/28/2014 Abstract [facility] Medical [facility] Ole Jones MD Social History [...] Sign Reading Time Taken Comments Blood Pressure 129/85 12/28/2014 4:05 PM CDT Pulse - - Temperature - - Respiratory Rate - - Oxygen Saturation - - Inhaled Oxygen Concentration - - Weight 104.3 kg (230 lb) 12/28/2014 4:05 PM CDT Height 172.7 cm (5' 8 ) 12/28/2014 4:05 PM CDT Body Mass Index 34.97 12/28/2014 4:05 PM CDT documented in this encounter Progress Notes * Ole Jones MD - 12/28/2014 2:00 PM CDT Reason For Visit New Patient Visit History of Present Illness HPI Free Text: patient is 44 years old with a long-standing history of back pain. He was evaluated in [place] with the MRI and did a lumbar myelogram and probably discogram. He was recommended surgery but he said he could not get it done, and he wanted family so taken to him in an IV was help from the Departmentof public. He is pain is in the back goes to the leg is consistent and has been diagnosed with spinal stenosis, but I don't have any report from [place]. No headache no progress made. He is taking swallowing is at a type II diabetic Review of Systems Constitutional: negative. Head and [...] ?? No alcohol use Current Meds 1. Adderall XR 20 MG Oral Capsule Extended Release 24 Hour (Amphetamine-Dextroamphet ER); Therapy: (Recorded:[id number]) to Recorded 2. Divalproex Sodium 500 MG Oral Tablet Delayed Release; Therapy: [id number] to Recorded 3. Hydrocodone-Acetaminophen 10-325 MG Oral Tablet; Therapy: (Recorded:[id number]) to Recorded 4. MetFORMIN HCl - 500 MG Oral Tablet; Therapy: (Recorded:[id number]) to Recorded 5. Xanax TABS (ALPRAZolam); Therapy: (Recorded:[id number]) to Recorded Allergies 1. azithromycin 2. esomeprazole 3. nisoldipine 4. Penicillins 5. sulfa Vitals Recorded: 57Vjj1544 04:05PM Systolic 129 Diastolic 85 Height 5 ft 8 in Weight 230 lb BMI Calculated 34.97 BSA Calculated 2.17 Physical Exam Neurologic: Mental status:. The patient's orientation, memory, attention, language and furnd of knowledge were normal. Cranial Nerves: visual acuity and visual khalil were intact, the oculomotor, trochlear and abducensnervea were intact, no trigeminal neuropathy was noted, no facial nerve palsy was noted, hearing was intact, there was normal movement of the soft palate and normal gag, shoulder shrug was intact bilaterally and there was no tongue deviation with protrusion. Sensory exam:. Light touch was intact. Pain and temperature sensation was intact. Vibration sense was intact. Proprioception was normal. Coordination was normal, including finger to nose, heal to shiin, and rapid alternating movements. Deep tendon reflexes: Biceps: right 2+, left 2+. Triceps: right 2+, left 2+. Brachioradialis: right 2+, left 2+. Patella: right 2+, left 2+. Ankle Jerk: right 2+, left 2+. Babinski reflex absent on the right, absent on the left. Musculoskeletal Gait and station: Normal gait, stance and balance. Digits and nails: Normal, no clubbing or cyanosis. Muscle strength: Normal strength throughout. Muscle tone: No atrophy, abnormal movements, flaccidity, cogwheeling or spasticity. Involuntary movements: None observed. Neurologic Cortical function: Normal. Motor exam of the right side demonstrates 5/5 motor strength in all motor groups. Motor exam of the left side demonstrates 5/5 motor strength in all motor groups. Counseling The patient was counseled regarding diagnostic results. Assessment 1. Lumbar radiculopathy (724.4) (M54.16) 2. Lumbar spinal stenosis (724.02) (M48.06) Plan Lumbar spinal stenosis 1. MRI Lumbar Spine WO; Status:Active; Requested for:[id number]; Perform:Other Radiology; Due:[id number]; Last Updated By:Judy Ledesma; 12/28/2014 3:48:17 PM;Ordered; For:Lumbar spinal stenosis; Ordered By:Sean Jones; Clinical impression history of spinal stenosis and I will repeat an MRI since the last one was lastone was done 2-3 years ago. He might be a candidate for surgery but we need a new MRI I will see him back after MRIs done he will go where they have an open MRI Signatures Electronically signed by : Sean Jones M.D.; Jan 04 2015 11:45AM WORKFORCE SPECIALIST (Author) documented in this encounter Plan of Treatment Upcoming Encounters Date Type Department Care Team (Late st Contact Info) Description 05/10/2024 11:40 AM WORKFORCE SPECIALIST Office Visit [facility] Medical Group Diabetes and Endocrinology - [address] [phone] Eva Power MD [address] [place] [phone] documented as of this encounter Visit Diagnoses Not on filedocumented in this encounter
--- OUTSIDE RECORDS SUMMARY | 2024-04-19 22:44 | XMS_ITS | Encounter Summary ---
Author Organization [facility] Address [address] [place] [address]. [place] [address] [place] [address] Care Team Providers Care Eligibility Worker Name Role Phone Unavailable Primary Care Provider Unavailabl e Encounter Details Date Type Department Care Team (Late st Contact Info) Description 11/06/2015 [facility] Emergency Room [address] [facility] [place] [address] Gerry Faustin MD [address] [place] [phone] Social History Tobacco Use Types Packs/Day [...] (Late Contact Info) Description 05/10/2024 11:40 AM CEREAL CHEMIST Office Visit [facility] Medical Group Diabetes and Endocrinology - [address] [phone] Eva Power MD [address] [place] [phone] documented as of this encounter Visit Diagnoses Diagnosis Diarrhea documented in this encounter
--- OUTSIDE RECORDS SUMMARY | 2024-04-19 22:44 | XMS_ITS | Encounter Summary ---
Author Organization [facility] Address [facility]. [place], [place] [address] [place] [address] Care Team Providers Care Global Implementation Manager Name Role Phone Unavailable Primary Care Provider Unavailabl e Encounter Details Date Type Department Care Team (Latest Contact Info) Description 10/16/2016 Abstract [facility] Medical Group Social History Tobacco Use Types Packs/Day Years Used Date Smoking Tobacco: Never Assessed Sex and Gender Information Value Date Recorded Sex Assigned at Not on file Legal Sex Male 9:36 PM CDT Gender Identity Not on file Sexual Orientation Straight 03/02/2019 9: 44 PM CDT documented as of this encounter Progress Notes * Generic Conversion MD Franco - 10/16/2016 4:59 PM CDT Message Recorded as Task Date: 10/16/2016 02:35 PM, Created By: Ying Guzman Task Name: Renew Medication [facility] Regarding Patient: PatricioDavidshantelle Gilliam, Status: Active Comment: Ying Guzman - 16 Oct 2016 2:35 PM TASK CREATED Called on Thursday or Thursday. Waiting on override for persciption. Please call Subhash from [employer] at [phone]. Nimco Monroe - 16 Oct 2016 4:59 PM TASK EDITED Spoke with pharmacist and advised doctor was discontinuing the lantus and humolog and starting the humulin r. Insurance will not pay for the humulin r until November since patient already picked up 30 day supply of humolog and lantus. Patient has medicaid. Patient to finish humolog and lantus and then start the humlin r in November Electronically signed by : Nimco Monroe, ; Oct 16 2016 5:00PM BOOK SEWER (Author) documented in this encounter Plan of Treatment Upcoming Encounters Date Type Department Care Team (Late st Contact Info) Description 05/10/2024 11:40 AM BOOK SEWER Office Visit [facility] Medical Group Diabetes and Endocrinology - [address] [phone] Eva Power MD [address] [place] [phone] documented as of this encounter Visit Diagnoses Not on filedocumented in this encounter
--- OUTSIDE RECORDS SUMMARY | 2024-04-19 22:44 | XMS_ITS | Encounter Summary ---
Author Organization [facility] Address [facility] [place] [address] [place] [address] Care Team Providers Care Primary Operator Name Role Phone Unavailable Primary Care Provider Unavailabl e Encounter Details Date Type Department Care Team (Late st Contact Info) Description 07/09/2015 Abstract [facility] [place] [address] [place] [address] Ar Nguyễn MD [address] [place] [phone] Social History Tobacco Use Types Packs/Day Years [...] st Contact Info) Description 05/10/2024 11:40 AM GAME PRESERVE MANAGER Office Visit [facility] [place] [address] [place] [address] Eva Power MD [address] [place] [address] documented as of this encounter Visit Diagnoses Not on filedocumented in this encounter
--- OUTSIDE RECORDS SUMMARY | 2024-04-19 23:02 | XMS_ITS | Encounter Summary ---
Author Organization [facility] Address [address] [place] [address] Phone Care Team Providers Care Range Examiner Name Role Phone Janeth Pavon Kunal NEAL Primary Care Provider [phone] Riddhi Bello APRN, POLICY MANAGER Unavailable Reason for Visit * Auth/Cert (Routine) Specialty Diagnoses / Procedures Referred By Jordan casillas Referred To Contact Diagnoses ESOPHAGEAL VARICES, HISTORY OF COLON POLYPS Procedures EGD COLONOSCOPY Referral ID Status Reason Start Date Expiration Date Visits Re quested Visits Authorized [id number] 1 1 Encounter Details Date Type Department Care Team (Late st Contact Info) Description 03/24/2023 7:30 AM SEWING LINE BALER - 03/24/2023 8:00 AM SEWING LINE BALER Surgery [facility] Periop [address] [place] [address] Ac Berger MD [address] [address] EGD-PORTAL HYPERTENSIVE GASTROPATHY, GRADE ONE ESOPHAGEAL VARCIES Surgery Details Date/Time Status Location OR Service Patient Class Case Class Case Type Trauma Case? 03/24/2023 7:30 AM Posted [facility] GI 01 Gastroenterology [facility] Ambulatory Surgery Electiv e/Sched uled Panel 1 Procedure LRB Anes Op Region Wound Class Comments EGD-PORTAL HYPERTENSIVE GASTROPATHY, GRADE ONE ESOPHAGEAL VARCIES N/A Monitored Anesthesia Care COLONOSCOPY-CECAL POLYP REMOVED BY HOT SNARE, DIVERTICULOSIS N/A Monitored Anesthesia Care Surgeon Surgeon Role Service Panel Ac Berger MD Primary Gastroenterology 1 Special Needs DM, DOUBLE PREP - Dx varices/polyps documented in this encounter Social History Tobacco Use Types Packs/Day Years Used Date Smoking Tobacco: Former Cigarettes Q uit: 2002 Smokeless Tobacco: Never Tobacco Cessation:Counseling Given: Not Answered Alcohol Use Standard Drinks/Week Comments Not Currently 0 (1 standard drink = 0.6 oz pur e alcohol) Sexually Active Control Partners Comments Yes Female Sex and Gender Information Value Date Recorded Sex Assigned at Not on file Legal Sex Male 10:58 AM SEWING LINE BALER Gender Identity Not on file Sexual Orientation Not on file COVID-19 Exposure Response Date Recorded In the last 10 days, have yo u been in contact with someone who was confirmed or suspected to have Coronavirus/COVID-19? No / Unsure 02/26/2023 8:15 AM CDT documented as of this encounter Last Filed Vital Signs Vital Sign Reading Time Taken Comments Blood Pressure 134/72 03/24/2023 6:48 AM SEWING LINE [facility]ER Pulse 94 03/24/2023 6:48 AM SEWING LINE [facility]ER Temperature 36 ??C (96.8 ??F) 03/24/2023 6:48 AM SEWING LINE [facility]ER Respiratory Rate 9 03/24/2023 6:48 AM SEWING LINE BALER Oxygen Saturation 98% 03/24/2023 6:48 AM SEWING LINE BALER Inhaled Oxygen Concentration - - Weight 97.5 kg (215 lb) 02/27/2023 3:04 PM CDT Height 172.7 cm (5' 8 ) 02/27/2023 3:04 PM CDT Body Mass Index 32.69 02/27/2023 3:04 PM CDT documented in this encounter Discharge Instructions * Discharge Instructions* Felicitas Florentino RN - 03/24/2023 8:11 AM SEWING LINE BALER You had a colonoscopy today. Dr. Berger found: Findings: Cecum ascending colon transverse colon descending colon sigmoid colon and rectum including retroflexion were normal. Extensive sigmoid diverticulosis 10mm sessile polyp in the cecum removed with the help of a hot snare retrieved and submitted for histology No complications, blood loss or implants Estimated blood loss less than 5 ml. Recommendations: Pathology from colon polyp Repeat colonoscopy in 5 years High-fiber diet Thank you, for allowing me to participate in the care of your patient. DO NOT DRIVE, WORK, OPERATE MACHINERY OR USE POWER TOOLS UNTIL DAY AFTER PROCEDURE. NO ALCOHOL BEVERAGES TODAY FOLLOWING DAY: RETURN TO FULL ACTIVITY, INCLUDING WORK, UNLESS INSTRUCTED OTHERWISE. Call doctor's office ([phone]) or go to Emergency room for: Difficulty Breathing, Headache Or Visual Disturbances Persistent Dizziness Or Light-Headedness Persistent Nausea and Vomiting Temperature greater then 100.0 Significant abdominal pain, chest pain, or bleeding. Here at [facility] we strive to provide excellent care to each of our patients, along with an easy transition between departments, starting with registration until discharge. Through our excellent care and services, we hope that you would recommend our services to your family and friends. You will receive a follow-up phone call in 24-48 hours after your procedure to see how you are doing. This gives our patients the opportunity to recognize any members from our team, from housekeepers, to nurses, to physicians, that you felt gave you excellent service as well as any suggestions for improvement. We hope you found our facility clean and our mission partners courteous. You may also receiving a survey in the mail. We would appreciate it if you could complete the form and return it. A self addressed pre-paid envelope is provided. Thank you for choosing [facility]. NG LINE BALER NG LINE BALER documented in this encounter Medications at Time of Discharge albuterol 108 (90 Base) MCG/ACT Aerosol Solution every 4 hours as needed. 02/02/2023 ALPRAZolam (XANAX) 1 MG Tablet Take by mouth as needed. carvedilol (COREG) 3.125 MG Tablet Take 1 Tablet by mouth 2 times daily. 180 Tablet 3 02/17/2023 ergocalciferol (VITAMIN D) 39836 UNIT Capsule Take 50,000 Units by mouth. Glucose Blood Strip 1 Strip by Does not apply route. 12/08/2018 HumaLOG KwikPen 100 UNIT/ML Solution Pen-injector 3 times daily (before meals). 02/02/2023 hydroCHLOROthiaz james 25 MG Tablet Take 25 mg by mouth daily. HYDROcodone-acet aminophen (NORCO) 7.5-325 MG Tablet Take 10 Tablets by mouth three times a week. Insulin Pen Needle (B-D ULTRAFINE III SHORT PEN) 31G X 8 MM Misc 02/26/2021 Insulin Pen Needle (B-D ULTRAFINE III SHORT PEN) 31G X 8 MM Misc 1 Each by Subcutaneous route. 11/07/2020 Insulin Pen Needle (Pen [place]) 32G X 4 MM Misc Inject 3 times daily 08/04/2019 Lantus SoloStar 100 UNIT/ML Solution Pen-injector every 12 hours. 50 units AM and 35 units HS 02/02/2023 Omeprazole 20 MG Tablet Delayed Response Take 20 mg by mouth daily. ondansetron (ZOFRAN) 4 MG Tablet Take 4 mg by mouth every 8 hours as needed. OneTouch Ultra Strip 02/02/2023 rifAXIMin (XIFAXAN) 200 MG Tablet Take 550 mg by mouth 2 times daily. traZODone (DESYREL) 100 MG Tablet nightly. 02/02/2023 guaiFENesin-code ine (TUSSI-ORGANIDIN NR) 100-10 MG/5ML Syrup Take 5 mL by mouth every 4 hours as needed for Cough. 4 Insulin Regular Human (HUMULIN R IJ)Indications:1 50 units in AM, 100 units in PM 150 Units by Injection route. Indications: 150 units in AM, 100 units in PM 4 LACTULOSE PO Take 30 mL by mouth 4 times daily. 4 metFORMIN (GLUCOPHAGE) 1000 MG Tablet Take 1,000 mg by mouth 2 times daily (with meals). 4 pregabalin (LYRICA) 75 MG CapsuleIndicatio ns:Neuropathic Pain Take 75 mg by mouth 2 times daily. Indications: Neuropathic Pain 4 traMADol (ULTRAM) 50 MG Tablet 0 02/02/2023 4 Trulicity 0.75 MG/0.5ML Solution Pen-injector once a week. 02/02/2023 4 documented as of this encounter H&P Notes * Ac Berger MD - 03/24/2023 7:34 AM CST HISTORY AND PHYSICAL Ac Berger MD Date of Exam: 03/24/2023 Date of Admission: 03/24/2023 Camilo Curry, (date of 1970) is a 52 y.o. at hospital day: (LOS: 1 hour) HPI: History of cirrhosis with tips patient to have under upper endoscopy so for surveillance of esophageal varices Screening colonoscopy no GI symptoms Past Medical History: has a past medical history of Anxiety, Cirrhosis of liver (HCC), Diabetes mellitus (HCC), Esophageal varices (HCC), Hepatitis, BLAND (nonalcoholic steatohepatitis), and Spinal stenosis. Past Surgical History: has a past surgical history that includes Tips Procedure; colonoscopy w/ biopsy (2005); EGD W/Banding; and EGD W/Banding. Medications: Current Facility-Administered Medications: ??? lactated ringers infusion ??? ondansetron (ZOFRAN) injection 4 mg Allergies: Allergies Allergen Reactions ??? Iodinated Contrast Media Swelling and Rash ??? Azactam [Aztreonam In Dextrose] Unknown ??? Aztreonam Unknown ??? Ciprofloxacin Hcl Unknown ??? Duloxetine Hcl Unknown ??? Erythromycin Unknown ??? Nexium [Esomeprazole Magnesium] Unknown ??? Octreotide Unknown ??? Penicillins Unknown ??? Sulfa Antibiotics Unknown ??? Wound Dressing Adhesive Other (see Comments) Tape - Blisters Social History: reports that he quit smoking about 20 years ago. His smoking use included cigarettes. He has never used smokeless tobacco. He reports that he does not currently use alcohol. He reports that he does not currently use drugs. Family History: family history includes Cancer in his father and mother; Ovarian Cancer in his mother. ROS: Systems are reviewed with negative findings. Physical Exam: PHYSICAL EXAMINATION: In general patient is in no acute distress. VITAL SIGNS: BP 134/72 Pulse 94 Temp 96.8 ??F (36 ??C) (Other (See Comment)) Resp 9 Ht 5' 8 (1.727 m) Wt 215 lb (97.5 kg) SpO2 98% BMI 32.69 kg/m?? HEENT: Normocephalic, atraumatic. Mucosal membranes pink, moist. Eyes, no scleral icterus. NECK: Supple. Trachea is midline. No JVD. CARDIOVASCULAR: Regular rate and rhythm. RESPIRATORY: Clear to auscultation bilaterally with no increased respiratory effort. ABDOMEN: Soft, nontender, nondistended. Bowel sounds audible. PSYCHIATRIC: Patient is alert and oriented, with appropriate mood and affect. EXTREMITIES: Warm without edema. Labs: No results found for: WBC , HEMOGLOBIN , HEMATOCRIT , PLATELETCNT , MCV No results found for: INR No components found for: LFT No components found for: BMP No results found. Problem List: Patient Active Problem List Diagnosis ??? Sacroiliac joint dysfunction of both sides ??? 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-sided sciatica ??? BLAND (nonalcoholic steatohepatitis) ??? Esophageal varices (HCC) ??? Gallstones ??? Biliary colic ??? Hepatic encephalopathy (HCC) ??? Hypertension Plan: For endoscopy today with banding of varices if needed Screening colonoscopy I have explained the risks, benefits, and alternatives of the procedure to the patient and family. They wish to proceed with procedure. Ac Berger MD 03/24/2023 7:34 AM SEWING LINE BALER NG LINE BALER documented in this encounter OR Notes * OR Surgeon - Ac Berger MD - 03/24/2023 8:07 AM CST COLONOSCOPY Camilo Curry 1970 52 y.o. male 03/24/2023 6:19 AM Date of Procedure: 03/24/2023 Pre-operative Diagnosis: ESOPHAGEAL VARICES, HISTORY OF COLON POLYPS Post-operative Diagnosis: EGD-PORTAL HYPERTENSIVE GASTROPATHY, GRADE ONE ESOPHAGEAL VARCIES COLONOSCOPY-CECAL POLYP REMOVED BY HOT SNARE, DIVERTICULOSIS Procedure(s): Procedure(s): EGD-PORTAL HYPERTENSIVE GASTROPATHY, GRADE ONE ESOPHAGEAL VARCIES COLONOSCOPY-CECAL POLYP REMOVED BY HOT SNARE, DIVERTICULOSIS Surgeon: Ac Berger MD Anesthesia: Anesthesia Specimens: ID Type Source Tests Collected by Time A : CECAL POLYP Tissue Colon PATHOLOGY SURGICAL Ac Berger MD 03/24/2023 0803 Withdrawal time: 15 minutes Preparation: Fair Description: After the risks, benefits and alternatives of the above procedure were explained to the patient, consent is obtained. The patient is brought to the endoscopy suite, monitored, and sedated to maintain a level of comfort. The video colonoscope is introduced into the rectal vault and advanced under direct visualization. Identification of the ileocecal valve, cecum, and transillumination of the right lower quadrant is observed. Paying close attention to the mucosal detail, the colonoscope is withdrawn through the entire length of the colon. Air is removed as the scope is withdrawn. Retroflex view of the anus is also performed. The scope was removed from the patient, who tolerated the procedure well. Recovery occurred in endoscopy, and the patient then transferred to postop in stable condition. Findings: Cecum ascending colon transverse colon descending colon sigmoid colon and rectum including retroflexion were normal. Extensive sigmoid diverticulosis 10mm sessile polyp in the cecum removed with the help of a hot snare retrieved and submitted for histology No complications, blood loss or implants Estimated blood loss less than 5 ml. Recommendations: Pathology from colon polyp Repeat colonoscopy in 5 years High-fiber diet Thank you, for allowing me to participate in the care of your patient. Surgeon: Ac Berger MD, 03/24/2023, 8:07 AM SEWING LINE BALER Primary Care Physician: JANETH PAVON, PAC NG LINE BALER * OR Surgeon - Ac Berger MD - 03/24/2023 7:41 AM CST EGD Camilo Curry 1970 52 y.o. male 03/24/2023 6:19 AM Date of Procedure: 03/24/2023 Pre-operative Diagnosis: ESOPHAGEAL VARICES, HISTORY OF COLON POLYPS Post-operative Diagnosis: Grade 1 esophageal varices, portal hypertensive gastropathy Procedure(s): Procedure(s): EGD-PORTAL HYPERTENSIVE GASTROPATHY, GRADE ONE ESOPHAGEAL VARCIES COLONOSCOPY Surgeon: Ac Berger MD Anesthesia: Anesthesia Specimens: No specimens collected Estimated Blood Loss: less than 5 ml Description: After the risks, benefits and alternatives of the above procedure were explained to the patient, consent is obtained. The patient is brought to Endoscopy, monitored and sedated to maintain a level ofcomfort. The video gastroscope is placed into the oral cavity and then advanced into the second portion of the duodenum under direct visualization. The scope is withdrawn through the duodenal sweep,bulb,pylorus,antrum,and body of the stomach. Retroflex view of the cardia and fundus was then carried out. Air is removed from the stomach and the scope was brought up to the GE junction. The distal, mid and proximal esophagus were examined closely. The following findings/procedures were observed. The scope was removed from the patient, who tolerated the procedure well. Recovery occurred in Endoscopy and the patient then transferred to Postop in stable condition. Findings: Esophagus squamocolumnar junction located at the 36 cm. Grade 1 esophageal varices. No banding needed Stomach fundus body and antrum normal. Diffuse erythema and edema consistent with portal hypertension gastropathy No ulceration erosion, inflammation, AVM or malignancy seen Duodenum normal in the bulb 2nd and 3rd portion No complications, blood loss or implants Recommendations: Diet as tolerated start nadolol for prevention of variceal bleeding Follow up in GI clinic annually Thank you for allowing me to participate in the care of your patient. Surgeon: Ac Berger MD, 03/24/2023, 7:41 AM SEWING LINE BALER Primary Care Physician: JANETH PAVON, PAC NG LINE BALER documented in this encounter Miscellaneous Notes * Plan of Care - Felicitas Florentino RN - 03/24/2023 6:24 AM CST Problem: Adult Inpatient Plan of Care Goal: Plan of Care Review Outcome: Ongoing (see interventions/notes) Flowsheets (Taken 03/24/2023 0624) Plan of Care Reviewed With: patient Today's Goal: to go home Outcome Evaluation: ready for OR Does the patient need assistance with discharge and/or transitioning to the next level of care?: No, no needs anticipated Goal: Patient-Specific Goal (Individualized) Outcome: Ongoing (see interventions/notes) Goal: Absence of Hospital-Acquired Illness or Injury Outcome: Ongoing (see interventions/notes) Goal: Optimal Comfort and Wellbeing Outcome: Ongoing (see interventions/notes) Goal: Readiness for Transition of Care Outcome: Ongoing (see interventions/notes) NG LINE BALER * Interdisciplinary - Lyric Dudley RN - 02/27/2023 3:05 PM CDT [facility] GI TEACHING Patient Name: Camilo Curry : 1970 [facility]#: [id number] Person Educated Patient Ready to Learn Yes Teaching Method Phone The Day of Procedure: Call your physician if your physical condition changes (cold, fever, flu). Do not come to the hospital without first calling your physician. Follow your surgeon's instructions regarding your diet, bowel prep, and medications if applicable. If your have any questions, please contact your surgeon's office. No alcohol and no smoking for 24 hrs prior to procedure if applicable. Wear comfortable, loose fitting clothing. Instruction to leave all jewelry at home including wedding/engagement rings or any body piercing jewelry. Leave all valuables at home. Children ages under 16 must be accompanied by a parent or legal guardian in the hospital at all times. Detailed instructions given for arrival location and parking. Arrive for your procedure as instructed by the [facility]. Go to Registration the morning of the procedure to check in. Arrange for a responsible person to accompany you and drive you home following your procedure. Follow directions regarding which medications to take or hold. It is very important to follow directions on diabetic medication or blood thinners from your surgeon's office. When you come to the hospital only 1 adult over the age of 16 will be allowed to accompany you to the [facility]. No children under the age of 16 will be allowed in the [facility] unless they are the patient. If the patient chooses to bring their children under the age of 16, an adult must accompany those children in the surgery waiting room and cannot leave them unattended. During the flu season: refer to the visitation restriction guidelines implemented during that season if applicable. Fall Prevention Teaching The Day of Surgery: ?? Your safety while you are in the hospital is very important to us. Following surgery, you might be at increased risk for falling for several reasons: ??? -The hospital environment is unfamiliar. It???s not the same as being at home ??? -You may be weaker than you realize. ??? -You may be connected to lines or equipment that can cause you to trip. ??? -You may be on medications that make you drowsy or dizzy. We know this can happen especially with pain medication and anesthesia. ??? We want to partner with you in the hospital to make sure you are safe ??? -Please do not feel hesitant to ask for help while in the hospital. You will -need extra help until you get stronger especially with walking and using the bathroom. ??? -Pay close attention to what the doctors and nurses tell you about your risk of falling. ??? -A fall can mean a longer hospital stay. Also, injuries from a fall can affect your health for the rest of your life. ??? Some things the nurses may do to keep you safe are: ??? -Have you use the call light for help whenever you get out of bed. ??? -Wear non-skid slippers to keep you from slipping on the floors ??? -Use a special belt that wraps around your waist so we can help steady you when you walk ??? -Activate an alarm on your bed so we know if you are getting up in case you forget to use yourcall light ??? -Stay in the bathroom with you in case you become dizzy or light headed Response to Teaching: Verbalizes Understanding Patient assessed for russian language professor during the preop interview and appropriate interventions taken if applicable. documented in this encounter Plan of Treatment Not on file documented as of this encounter Procedures Procedure Name Priority Date/Time Associated Diagnosis Comments CBC WITH AUTO DIFFERENTIAL STAT 03/24/2023 9:01 AM SEWING LINE BALER PROTIME (PT) (PROTHROMBIN TIME) STAT 03/24/2023 9:01 AM SEWING LINE BALER CMP (COMPREHENSIVE METABOLIC PANEL) STAT 03/24/2023 9:01 AM SEWING LINE BALER COMPLETE BLOOD COUNT (CBC) WITH DIFF STAT 03/24/2023 9:01 AM SEWING LINE BALER PATHOLOGY SURGICAL Routine 03/24/2023 8: 03 AM SEWING LINE BALER COLONOSCOPY 03/24/2023 7:31 AM SEWING LINE BALER EGD-PORTAL HYPERTENSIVE GASTROPATHY, GRADE ONE ESOPHAGEAL VARCIESCOLONOSCOPY-C ECAL POLYP REMOVED BY HOT SNARE, DIVERTICULOSIS Special Needs DM, DOUBLE PREP - Dx varices/polyps EGD 03/24/2023 7:31 AM SEWING LINE BALER EGD-PORTAL HYPERTENSIVE GASTROPATHY, GRADE ONE ESOPHAGEAL VARCIESCOLONOSCOPY-C ECAL POLYP REMOVED BY HOT SNARE, DIVERTICULOSIS Special Needs DM, DOUBLE PREP - Dx varices/polyps POCT GLUCOSE Routine 03/24/2023 6:41 AM SEWING LINE BALER GI LAB IMAGING - EGD Routine 03/24/2023 6:23 AM SEWING LINE BALER GI IMAGING - COLONOSCOPY Routine 03/24/2023 6:23 AM SEWING LINE BALER documented in this encounter Results * (ABNORMAL) CBC with Auto Differential (03/24/2023 9:01 AM SEWING LINE BALER) WBC 3.75(L) 4.00 - 12.00 10(3)/mcL 03/24/2023 9:33 AM SEWING LINE BALER [facility] RBC 5.77 4.40 - 5.80 10(6)/mcL 03/24/2023 9:33 AM SEWING LINE BALER [facility] HEMOGLOBIN (HGB) 13.2 13.0 - 16.5 g/dL 03/24/2023 9:33 AM SEWING LINE BALER [facility] HEMATOCRIT (HCT) 42.5 38.0 - 50.0 % 03/24/2023 9:33 AM SEWING LINE BALER [facility] MCV 73.7(L) 82.0 - 96.0 fL 03/24/2023 9:33 AM SEWING LINE BALER [facility] MCH 22.9(L) 26.0 - 32.0 pg 03/24/2023 9:33 AM SEWING LINE BALER [facility] MCHC 31.1 31.0 - 36.0 g/dL 03/24/2023 9:33 AM SEWING LINE BALER [facility] PLATELET COUNT 90(L) 140 - 440 10(3)/mcL 03/24/2023 9:33 AM SEWING LINE BALER [facility] RDW 17.3(H) 11.8 - 15.5 % 03/24/2023 9:33 AM SEWING LINE BALER [facility] MPV 10.4 8.0 - 12.6 fL 03/24/2023 9:33 AM SEWING LINE BALER [facility] NEUTROPHILS 70.2(H) 40.0 - 68.0 % 03/24/2023 9:33 AM SEWING LINE BALER [facility] LYMPHOCYTES 16.8(L) 19.0 - 49.0 % 03/24/2023 9:33 AM SEWING LINE BALER [facility] MONOCYTES 8.0 3.0 - 13.0 % 03/24/2023 9:33 AM SEWING LINE BALER [facility] EOSINOPHILS 3.7 0.0 - 8.0 % 03/24/2023 9:33 AM SEWING LINE BALER [facility] BASOPHILS 1.3(H) 0.0 - 1.0 % 03/24/2023 9:33 AM [facility] ABSOLUTE NEUTROPHILS 2.63 1.40 - 5.30 10(3)/[facility] 03/24/2023 9:33 AM SEWING LINE BALER [facility] ABSOLUTE LYMPHOCYTES 0.63(L) 0.90 - 3.30 10(3)/[facility] 03/24/2023 9:33 AM [facility] ABSOLUTE MONOCYTES 0.30 0.10 - 0.90 10(3)/[facility] 03/24/2023 9:33 AM [facility] ABSOLUTE EOSINOPHIL 0.14 0.00 - 0.50 10(3)/[facility] 03/24/2023 9:33 AM [facility] ABSOLUTE BASOPHILS 0.05 0.00 - 0.10 10(3)/[facility] 03/24/2023 9:33 AM [facility] NRBC PER 100 WBC 0 03/24/20 9:33 AM [facility] RESULTS ARE CONSISTENT WITH PERIPHERAL SMEAR REVIEW Yes 03/24/2023 9:33 AM [facility] Blood Venipuncture / Unknown 03/24/2023 9:01 AM SEWING LINE BALER 03/24/2023 9:05 AM SEWING LINE BALER Narrative [facility] - 03/24/2023 9:33 AM SEWING LINE BALER microcytes us Ac Berger MD HEMATOLOGY ORDERABLES Final Resu lt [facility] [address] [place] [address] * (ABNORMAL) PROTIME (PT) (PROTHROMBIN TIME) (03/24/2023 9:01 AM SEWING LINE BALER) PROTIME-PATIENT 15.4(H) 11.6 - 14.8 sec 03/24/2023 9:20 AM SEWING LINE BALER [facility] INR 1.2 0.9 - 1.2 03/24/2023 9:20 AM [facility] Comment: Therapeutic Ranges INR = 2.0-3.0: Venous thromb, atrial fib, pul embolism, tissue heart valve, ami. INR = 2.5-3.5: Mechanical heart valve Critical value for INR is >/= 4.5 Blood Venipuncture / Unknown 03/24/2023 9:01 AM SEWING LINE BALER 03/24/2023 9:05 AM SEWING LINE BALER us Ac Berger MD HEMATOLOGY ORDERABLES Final Resu lt [facility] [address] [place] [address] * (ABNORMAL) CMP (Comprehensive Metabolic Panel) (03/24/2023 9:01 AM SEWING LINE BALER) [facility] SODIUM 137 136 - 145 mmol/L 03/24/2023 9:29 AM [facility] POTASSIUM 4.1 3.5 - 5.1 mmol/L 03/24/2023 9:29 AM SEWING LINE BALER [facility] CHLORIDE 104 98 - 107 mmol/L 03/24/2023 9:29 AM [facility] CO2, VENOUS 24 22 - 30 mmol/L 03/24/2023 9:29 AM [facility] ANION GAP 13.1 <18.0 mmol/L 03/24/2023 9:29 AM [facility] GLUCOSE 273(H) 70 - 99 mg/dL 03/24/2023 9:29 AM [facility] BUN 9 8 - 26 mg/dL 03/24/2023 9:29 AM [facility] CREATININE, BLOOD 0.79 0.70 - 1.30 mg/dL 03/24/2023 9:29 AM [facility] BUN/CREATININE RATIO 11(L) 12 - 20 ratio 03/24/2023 9:29 AM [facility] TOTAL PROTEIN 6.5 6.3 - 8.2 g/dL 03/24/2023 9:29 AM [facility] ALBUMIN 3.6 3.5 - 5.0 g/dL 03/24/2023 9:29 AM [facility] A/G RATIO 1.2 1.0 - 2.2 03/24/2023 9:29 AM [facility] CALCIUM 8.9 8.7 - 10.5 mg/dL 03/24/2023 9:29 AM [facility] T BILI 1.9(H) 0.2 - 1.2 mg/dL 03/24/2023 9:29 AM [facility] SGOT (AST) 26 5 - 34 U/L 03/24/2023 9:29 AM [facility] SGPT (ALT) 20 0 - 55 U/L 03/24/2023 9:29 AM [facility] ALKALINE PHOSPHATASE 90 40 - 150 U/L 03/24/2023 9:29 AM [facility] GFR, ESTIMATED >60 >=60 03/24/2023 9:29 AM [facility] Comment: Creatinine Clearance is the preferred criteria for selecting drug dose adjustments in renally impaired patients. ??The GFR is provided as additional pertinent clinical information. GFR is reported in mL/min/1.73 sq m. Calculation based on the Chronic Kidney Disease Epidemiology Collaboration (CKD- EPI) equation refit without adjustment for race. GFR, EST. >60 >=60 023 9:29 AM [facility] GFR, EST. NONAFRICAN >60 >=60 03/24/2023 9:29 AM [facility] Blood Venipuncture / Unknown 03/24/2023 9:01 AM [facility] 03/24/2023 9:05 AM [facility] us Ac Berger MD CHEMISTRY ORDERABLES Final Resul t [facility] [address] [facility] [place] [address] * Pathology Surgical (03/24/2023 8:03 AM [facility]) Case Report Surgical Pathology Report ? Case: [id number] ? Authorizing Provider: ??Ac Berger MD ?Collected: ? 03/24/2023 08:03 AM ? Ordering Location: ? [facility] ? Received: ?03/24/2023 09:32 AM ? [facility] ? Lab Main ? Pathologist: ? Angeles Ward MD PhD ? Specimen: ?Colon, CECAL POLYP ? 03/25/2023 8:20 AM [facility] FINAL DIAGNOSIS Cecal polyp, polypectomy: - Tubular adenoma 03/25/2023 8:20 AM [facility] Pre-Operative Diagnosis Esophageal varices, history of colon polyps 03/25/2023 8:20 AM [facility] Gross Description A. CECAL POLYP The specimen presents in a single formalin container for gross and microscopic examination, labeled with the patient's name, Camilo Curry, and designated as cecal polyp. The specimen consists of four pieces of light andre tissue measuring a fraction of a millimeter up to 0.3 cm in greatest dimension. All submitted in cassette A1. KS/sb Total time of fixation is 13 hours, 43 minutes. 03/25/2023 8:20 AM [facility] Microscopic Description Microscopic examination was performed which supports the final diagnosis. All control tissues stained appropriately. 03/25/2023 8:20 AM [facility] Tissue COLON STRUCTURE / Unknown 03/24/2023 8:03 AM [facility] 03/24/2023 9:32 AM [facility] us Ac Berger MD PATHOLOGY/CYTOLOGY ORDERABLES Fi nal Result [facility] [place] [address] * (ABNORMAL) POCT Glucose (03/24/2023 6:41 AM [facility]) GLUCOSE,BEDSID E POCT 254(H) 70 - 99 mg/dL 03/24/2023 6:47 AM [facility] Comment:Patient RN Performed Blood 03/24/2023 6:41 AM [facility] 03/24/2023 6:47 AM [facility] us None Provider POINT OF CARE TESTING Final Resu lt [facility] [place] [address] * GI LAB IMAGING - EGD (03/24/2023 6:23 AM [facility]) us Ac PATEL DIAGNOSTIC ORDERABLES Final Result * GI IMAGING - COLONOSCOPY (03/24/2023 6:23 AM [facility]) us Ac PATEL DIAGNOSTIC ORDERABLES Final Result documented in this encounter Visit Diagnoses Not on filedocumented in this encounter Administered Medications Inactive Administered Medications - up to 3 most recent administrations Medication Order MAR Action Action Date Dose Rate Site lactated ringers infusion at 20 mL/hr, Intravenous, CONTINUOUS, Starting on Thu03/24/23 at 0700, Until Thu03/24/23 at 1108, PRE-OP (SURGERY) New Bag 03/24/2023 7:28 AM [facility] 20 mL/hr 20 mL/hr ondansetron (ZOFRAN) injection 4 mg 4 mg, Intravenous, ONCE PRN, 1 dose, Starting on Thu03/24/23 at 0623, Until Thu03/24/23 at 1108, Nausea - 1st line, PRE-OP (SURGERY) documented in this encounter Active and Recently Administered Medications Times are shown in [facility]. Continuous Medication Order 03/22/2023 03/23/2023 03/24/2023 lactated ringers infusion at 20 mL/hr, Intravenous, CONTINUOUS, Starting on Thu03/24/23 at 0700, Until Thu03/24/23 at 1108, PRE-OP (SURGERY) 0728 (New Bag - Prov ider: Karina Moreno, RN)0734 (Continued by Anesthesia - Provider: Raffaele Chance APRN, DESIGN ENG)0836 (Stopped - Provider: Felicitas Florentino, BETHANY) PRN Medication Order 03/22/2023 03/23/2023 03/24/2023 ondansetron (ZOFRAN) injection 4 mg 4 mg, Intravenous, ONCE PRN, 1 dose, Starting on Thu03/24/23 at 0623, Until Thu03/24/23 at 1108, Nausea - 1st line, PRE-OP (SURGERY) documented in this encounter Care Teams Range Examiner Relationship Specialty Start Date End Date Janeth Pavon, [facility] [address] [place] [id number] PCP - General Physician Certified [place] Reporter 06/22/18 Riddhi Bello APRN, POLICY MANAGER [address] [place] [address] Nurse Practitioner Advanced Practice Nurse 02/10/23 documented as of this encounter
--- OUTSIDE RECORDS SUMMARY | 2024-04-19 23:02 | XMS_ITS | Encounter Summary ---
Author Organization [facility] Address [address] [place] [address] Phone Care Team Providers Care Ropeman Name Role Phone LibradoBraydon Primary Care Provider [phone] Vikram Mora MD Unavailable Riddhi Bello APRN, CNP Unavailable Reason for Referral * Radiology Services (Routine) - Closed Specialty Diagnoses / Procedures Referred By Contac t Referred To Contact Radiology Diagnoses Pain of upper abdomen Nausea and vomiting, unspecified vomiting type Procedures NM HEPATOBILIARY WITH PHARM Riddhi Bello APRN, DOROTHY [address] [place] [address] Phone: tel: fax: Referral ID Status Reason Start Date Expiration Date Visits Re quested Visits Authorized [id number] Closed 05/29/2023 1 1 CTOR OF CATEGORY MANAGEMENT * Radiology Services (Routine) - Closed Specialty Diagnoses / Procedures Referred By Contac t Referred To Contact Radiology Diagnoses Tail bone pain Procedures XR SACRUM & COCCYX Riddhi Bello APRN, BUSHER HELPER [address] [place] [address] Phone: tel: fax: Referral ID Status Reason Start Date Expiration Date Visits Re quested Visits Authorized [id number] Closed 05/29/2023 1 1 CTOR OF CATEGORY MANAGEMENT * Radiology Services (Routine) - Closed Specialty Diagnoses / Procedures Referred By Jordan casillas Referred To Contact Radiology Diagnoses Pain of upper abdomen Nausea and vomiting, unspecified vomiting type Procedures XR ABDOMEN KUB FLAT PLATE Riddhi Bello APRN, CNP [address] [place] [address] Phone: tel: fax: Referral ID Status Reason Start Date Expiration Date Visits Re quested Visits Authorized [id number] Closed 05/29/2023 1 1 CTOR OF CATEGORY MANAGEMENT Reason for Visit * Reason Comments Abdominal Pain Encounter Details Date Type Department Care Team (Latest Contact Info) Description 05/29/2023 11:30 AM DIRECTOR OF CATEGORY MANAGEMENT Office Visit [facility] - G[facility] [address] [place] [address] Riddhi Bello APRN, DOROTHY [address] [place] [address] 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); S/P TIPS (transjugular intrahepatic portosystemic shunt); History of recent fall; Tail bone pain; Pain of upper abdomen; Nausea and vomiting, unspecified vomiting type Discharge Disposition: Discharged to home or Selfcare Social History Tobacco Use Types Packs/Day Years [...] on file Legal Sex Male 10:58 AM DIRECTOR OF CATEGORY MANAGEMENT Gender Identity Not on file Sexual Orientation Not on file documented as of this encounter Last Filed Vital Signs Vital Sign Reading Time Taken Comments Blood Pressure 98/72 05/29/2023 11:22 AM DIRECTOR OF CATEGORY MANAGEMENT Pulse 116 05/29/2023 11:22 AM DIRECTOR OF CATEGORY MANAGEMENT Temperature 36.4 ??C (97.5 ??F) 05/29/2023 11:[address] Respiratory Rate 18 05/29/2023 11:22 AM DIRECTOR OF CATEGORY MANAGEMENT Oxygen Saturation 98% 05/29/2023 11:22 AM DIRECTOR OF CATEGORY MANAGEMENT Inhaled Oxygen Concentration - - Weight 95.9 kg (211 lb 8 oz) 05/29/2023 11:22 AM DIRECTOR OF CATEGORY MANAGEMENT Height 170.2 cm (5' 7 ) 05/29/2023 11:22 AM DIRECTOR OF CATEGORY MANAGEMENT Body Mass Index 33.13 05/29/2023 11:22 AM DIRECTOR OF CATEGORY MANAGEMENT documented in this encounter Progress Notes * Riddhi Bello APRN, DOROTHY - 05/29/2023 11:30 AM CST SAPG GASTRO [facility] - GASTRO[facility]OLOGY - [place] [address] [facility] [address] Dept: [phone] Dept Loc: [phone] Loc Patient: Camilo Curry : 1970 Sex: male Medical Decision Making: Assessment & Plan Diagnoses and all orders for this visit: 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) - CMP (COMPREHENSIVE METABOLIC PANEL); Future - COMPLETE BLOOD COUNT (CBC) WITH DIFF; Future - AMMONIA S/P TIPS (transjugular intrahepatic portosystemic shunt) History of recent fall Tail bone pain - XR SACRUM & COCCYX; Future Pain of upper abdomen - XR ABDOMEN KUB FLAT PLATE; Future - NM HEPATOBILIARY WITH PHARM; Future Nausea and vomiting, unspecified vomiting type - LIPASE; Future - XR ABDOMEN KUB FLAT PLATE; Future - NM HEPATOBILIARY WITH PHARM; Future Here for follow up Had a fall 2 days ago. We will get some xrays today. Also some blood work as he has been feeling bad since the fall. Order for doppler ultrasound of TIPS will be sent to [facility]. We will also get a HIDA scan due to the pain and the recent findings of gall stones and intermittent epigastric pain. Advised a bland diet. No medication changes made today. Return if symptoms worsen or fail to improve. Subjective Subjective: HPI: Camilo Curry is a 52 y.o. male presents for Abdominal Pain Camilo is here today for follow up. He has a history of liver cirrhosis with S/P TIPs procedure. He had an EGD and colonoscopy in March. He did have esophageal varices. He is due for ultrasoundof the TIPS. He was seen in the ER on 05/20/2023 for epigastric pain. He states that the pain is episodic. He hadblood work and CT scan. Gall stones were seen on the CT scan in the neck of the gall bladder. His previous ultrasounds do not report any gall stones. His LFTs were normal. He had a slightly elevated total bilirubin of 2.2. He reports today that he fell 2 days ago at [facility] when he walked around an isle and slipped on a slippery spot on the floor. He states that his feet went out from under him and he landed on his bottom. He denies hitting his head. He states that since the fall he has had tailbone pain, abdominal pain, nausea, vomiting, and no appetite. He uses zofran as needed for the nausea. He has not eaten much in the last couple of days. He has been sleeping a lot He also reports that he has night sweats as well since the fall. On review of his medications it is noted that he is not taking the coreg or HCTZ anymore. His BP atul the lower side today. He states that he took a pain pill before the visit. Past Medical History: Past Medical History Positives Diagnosis Date ??? Anxiety ??? Cirrhosis of liver (HCC) ??? Diabetes mellitus (HCC) ??? Esophageal varices (HCC) ??? Hepatitis ??? BLAND (nonalcoholic steatohepatitis) ??? Spinal stenosis Past Surgical History: Past Surgical History: Procedure Laterality Date ??? COLONOSCOPY N/A 03/24/2023 Procedure: COLONOSCOPY-CECAL POLYP REMOVED BY HOT SNARE, DIVERTICULOSIS; Surgeon: Ac Berger MD; Location: [facility]; Service: Gastroenterology ??? COLONOSCOPY W/ BIOPSY 2005 ??? EGD WITH BANDING ??? EGD WITH BANDING ??? TIPS PROCEDURE TIMES 2 ??? UPPER GASTROINTESTINAL ENDOSCOPY N/A 03/24/2023 Procedure: EGD-PORTAL HYPERTENSIVE GASTROPATHY, GRADE ONE ESOPHAGEAL VARCIES; Surgeon: Ac Berger MD; Location: [facility]; Service: Gastroenterology Medications: Current Outpatient Medications: ??? albuterol 108 (90 Base) MCG/ACT Aerosol Solution ??? ALPRAZolam (XANAX) 1 MG Tablet ??? carvedilol (COREG) 3.125 MG Tablet ??? ergocalciferol (VITAMIN D) 66183 UNIT Capsule ??? famotidine (PEPCID) 20 MG Tablet ??? Glucose Blood Strip ??? guaiFENesin-codeine (TUSSI-ORGANIDIN NR) 100-10 MG/5ML Syrup ??? HumaLOG KwikPen 100 UNIT/ML Solution Pen-injector ??? hydroCHLOROthiazide 25 MG Tablet ??? HYDROcodone-acetaminophen (NORCO) 7.5-325 MG Tablet ??? Insulin Pen Needle (B-D ULTRAFINE III SHORT PEN) 31G X 8 MM Misc ??? Insulin Pen Needle (B-D ULTRAFINE III SHORT PEN) 31G X 8 MM Misc ??? Insulin Pen Needle (Pen Keystone) 32G X 4 MM Misc ??? Insulin Regular Human (HUMULIN R IJ) ??? LACTULOSE PO ??? Lantus SoloStar 100 UNIT/ML Solution Pen-injector ??? metFORMIN (GLUCOPHAGE) 1000 MG Tablet ??? Omeprazole 20 MG Tablet Delayed Response ??? ondansetron (ZOFRAN) 4 MG Tablet ??? ondansetron (ZOFRAN-ODT) 4 MG TABLET DISPERSIBLE ??? OneTouch Ultra Strip ??? pregabalin (LYRICA) 75 MG Capsule ??? rifAXIMin (XIFAXAN) 200 MG Tablet ??? traMADol (ULTRAM) 50 MG Tablet ??? traZODone (DESYREL) 100 MG Tablet ??? Trulicity 0.75 MG/0.5ML Solution Pen-injector Allergies: Allergies Allergen Reactions ??? Iodinated Contrast Media Swelling and Rash ??? Azactam [Aztreonam In Dextrose] Unknown ??? Aztreonam Unknown ??? Ciprofloxacin Hcl Unknown ??? Duloxetine Hcl Unknown ??? Erythromycin Unknown ??? Nexium [Esomeprazole Magnesium] Unknown ??? Octreotide Unknown ??? Penicillins Unknown ??? Sulfa Antibiotics Unknown ??? Wound Dressing Adhesive Other (see Comments) Tape - Blisters Rest of the history reviewed from the chart and as noted previously. Review of systems was negative, except as documented in HPI. Objective Objective: BP 98/72 (BP Location: Left Arm) Pulse (!) 116 Temp 97.5 ??F (36.4 ??C) Resp 18 Ht 5' 7 (1.702 m) Wt 211 lb 8 oz (95.9 kg) SpO2 98% BMI 33.13 kg/m?? General appearance: alert, no distress, cooperative, appears stated age Lungs: clear to auscultation bilaterally Abdomen: soft, rounded. Tenderness of epigastric region and lower abdomen. Bowel sounds normal. No masses, no organomegaly Neurologic: Alert and oriented X 3. Labs: Lab Results Component Value Date WBC 3.51 (L) 05/29/2023 HEMOGLOBIN 16.1 05/29/2023 HEMATOCRIT 48.2 05/29/2023 PLATELETCNT 81 (L) 05/29/2023 MCV 73.8 (L) 05/29/2023 Lab Results Component Value Date INR 1.2 03/24/2023 Lab Results Component Value Date SODIUM 130 (L) 05/29/2023 POTASSIUM 4.5 05/29/2023 CHLORIDE 101 05/29/2023 CO2VEN 22 05/29/2023 ANIONGAP 11.5 05/29/2023 GLUCOSE 288 (H) 05/29/2023 BUN 11 05/29/2023 CREATININE 1.16 05/29/2023 BCRATIO8 9 (L) 05/29/2023 TOTALPROTEIN 7.1 05/29/2023 ALBUMIN 3.8 05/29/2023 CALCIUM 9.6 05/29/2023 TBIL 3.4 (H) 05/29/2023 SGOTAST 36 (H) 05/29/2023 SGPTALT 23 05/29/2023 ALKALINEPHO 103 05/29/2023 GFRNA >60 05/29/2023 GFRA >60 05/29/2023 No results found. Review of diagnostic tests: labs, imaging, prior EGD and colonoscopy report Riddhi Bello, SUPERVISOR DOG LICENSE OFFICER, BUSHER HELPER This note was transcribed using M-Modal speech recognition software. As a result, there may be unintended grammar and spelling errors. 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 No scintigraphic evidence of common bile or cystic duct obstruction. Normal contractile response of the gallbladder to fatty meal stimulation. Narrative 06/11/2023 11:47 AM DIRECTOR OF CATEGORY MANAGEMENT EXAM DESCRIPTION: ?? NM HEPATOBILIARY WITH PHARM RADIOPHARMACEUTICAL: 5.4 ??mCi Tc-99m mebrofenin via a ??left hand ??IV site and 8 oz Ensure Plus or equivalent P.O. REASON FOR STUDY: ?? Right upper abdominal pain and nausea and vomiting for 1 month. TECHNIQUE: Following the intravenous administration of the radiopharmaceutical, sequential abdominal images were obtained. COMPARISON: CT abdomen pelvis 05/20/2023 FINDINGS: ?? Adequate clearance of the radiotracer from the blood pool. ??Activity appears within the gallbladder at the ??28 ??minute image. ??Subsequent images show activity within the small bowel. Following the oral administration of Ensure Plus or equivalent, the gallbladder ejection fraction was calculated and was ??100% ??(normal: greater than 40%, equivocal: 30-40%, and abnormal: less than 30%). THIS IS AN ELECTRONICALLY VERIFIED FINAL REPORT 06/11/2023 11:45 AM - Electronically signed by ??Rajeev Villalobos M.D. LB: DONNA D: ??06/11/2023 11:45 AM T: ??06/11/2023 11:45 AM Report ID: [id number] Reading Location: ??[id number] Procedure Note Rajeev Villalobos MD - 06/11/2023 EXAM DESCRIPTION: NM HEPATOBILIARY WITH PHARM RADIOPHARMACEUTICAL: 5.4 mCi Tc-99m mebrofenin via a left hand IV site and 8 oz Ensure Plus or equivalent P.O. REASON FOR STUDY: Right upper abdominal pain and nausea and vomiting for 1 month. TECHNIQUE: Following the intravenous administration of the radiopharmaceutical, sequential abdominal images were obtained. COMPARISON: CT abdomen pelvis 05/20/2023 FINDINGS: Adequate clearance of the radiotracer from the blood pool. Activity appears within the gallbladder at the 28 minute image. Subsequent images show activity within the small bowel. Following the oral administration of Ensure Plus or equivalent, the gallbladder ejection fraction was calculated and was 100% (normal: greater than 40%, equivocal: 30-40%, and abnormal: less than 30%). THIS IS AN ELECTRONICALLY VERIFIED FINAL REPORT 06/11/2023 11:45 AM - Electronically signed by Rajeev Villalobos M.D. LB: DONNA Report ID: [id number] Reading Location: [place] [address] IMPRESSION: No scintigraphic evidence of common bile or cystic duct obstruction. Normal contractile response of the gallbladder to fatty meal stimulation. Riddhi Bello SUPERVISOR DOG LICENSE OFFICER, BUSHER HELPER IMG NM ORDERABLES Final Result * XR ABDOMEN KUB FLAT PLATE (05/29/2023 1:28 PM DIRECTOR OF CATEGORY MANAGEMENT) Anatomical Region Laterality Modality Abdomen N/A Digital Radiogra phy 06/01/2023 6:23 PM DIRECTOR OF CATEGORY MANAGEMENT Impressions 06/01/2023 6:26 PM DIRECTOR OF CATEGORY MANAGEMENT IMPRESSION: ?? 1. ??Nonobstructive bowel gas pattern. Narrative 06/01/2023 6:26 PM DIRECTOR OF CATEGORY MANAGEMENT EXAM DESCRIPTION: ?? XR ABDOMEN KUB FLAT PLATE REASON FOR STUDY: ?? abdomen pain, nausea, vomiting. became worse after a fall 2-3 days ago. ?? TECHNIQUE: AP ??radiographic views of the abdomen. COMPARISON: ?? CT of the abdomen and pelvis from 05/20/2023 FINDINGS: BOWEL: ??Nonobstructive gas pattern. ?? SOFT TISSUES: ??No abnormal calcifications. LINES/TUBES: ??A metallic density structure in the right upper quadrant is consistent with a tips. BONES: ??No acute osseous abnormality. THIS IS AN ELECTRONICALLY VERIFIED FINAL REPORT 06/01/2023 6:23 PM - Electronically signed by ??Nixon Wetzel M.D. BS: BS D: ??06/01/2023 6:23 PM T: ??06/01/2023 6:23 PM Report ID: [id number] Reading Location: ??[id number] Procedure Note Nixon Wetzel MD - 06/01/2023 EXAM DESCRIPTION: XR ABDOMEN KUB FLAT PLATE REASON FOR STUDY: abdomen pain, nausea, vomiting. became worse after a fall 2-3 days ago. TECHNIQUE: AP radiographic views of the abdomen. COMPARISON: CT of the abdomen and pelvis from 05/20/2023 FINDINGS: BOWEL: Nonobstructive gas pattern. SOFT TISSUES: No abnormal calcifications. LINES/TUBES: A metallic density structure in the right upper quadrant is consistent with a tips. BONES: No acute osseous abnormality. THIS IS AN ELECTRONICALLY VERIFIED FINAL REPORT 06/01/2023 6:23 PM - Electronically signed by Nixon Wetzel M.D. BS: BS Report ID: [id number] Reading Location: [id number] IMPRESSION: 1. Nonobstructive bowel gas pattern. Riddhi Bello SUPERVISOR DOG LICENSE OFFICER, BUSHER HELPER IMG DIAGNOSTIC OR DERABLES Final Result * XR SACRUM & COCCYX (05/29/2023 1:27 PM DIRECTOR OF CATEGORY MANAGEMENT) Anatomical Region Laterality Modality Spine, Sacrum, Coccyx N/A Digital Ra diography 06/01/2023 7:28 AM DIRECTOR OF CATEGORY MANAGEMENT Impressions 06/01/2023 7:30 AM DIRECTOR OF CATEGORY MANAGEMENT IMPRESSION: No acute fracture identified. Inferior lumbar degenerative disc disease. Narrative 06/01/2023 7:30 AM DIRECTOR OF CATEGORY MANAGEMENT EXAM DESCRIPTION: XR SACRUM and COCCYX REASON FOR STUDY: tail bone pain after a fall 2-3 days ago. ? FINDINGS: Three views submitted with comparison 05/20/2023. No acute fractures are identified. ??The foraminal arcades are intact. ??Alignment is normal. ??Sacroiliac joints appear normal. ?? There is inferior lumbar degenerative disc disease. THIS IS AN ELECTRONICALLY VERIFIED FINAL REPORT 06/01/2023 7:28 AM - Electronically signed by ??Joel Yip M.D. MF: [email or web address] D: ??06/01/2023 7:28 AM T: ??06/01/2023 7:28 AM Report ID: [id number] Reading Location: ??[id number] Procedure Note Joel Yip MD - 06/01/2023 EXAM DESCRIPTION: XR SACRUM and COCCYX REASON FOR STUDY: tail bone pain after a fall 2-3 days ago. FINDINGS: Three views submitted with comparison 05/20/2023. No acute fractures are identified. The foraminal arcades are intact. Alignment is normal. Sacroiliac joints appear normal. There is inferior lumbar degenerative disc disease. THIS IS AN ELECTRONICALLY VERIFIED FINAL REPORT 06/01/2023 7:28 AM - Electronically signed by Joel Yip M.D. MF: [email or web address] Report ID: [id number] Reading Location: [id number] IMPRESSION: No acute fracture identified. Inferior lumbar degenerative disc disease. us Riddhi Bello APRN, DOROTHY IMG DIAGNOSTIC OR DERABLES Final Result * (ABNORMAL) AMMONIA (05/29/2023 1:09 PM DIRECTOR OF CATEGORY MANAGEMENT) AMMONIA 92(H) 18 - 72 umol/L 05/29/2023 1:32 PM DIRECTOR OF CATEGORY MANAGEMENT [facility] Blood Venipuncture / Unknown 05/29/2023 1:09 PM DIRECTOR OF CATEGORY MANAGEMENT 05/29/2023 1:19 PM DIRECTOR OF CATEGORY MANAGEMENT us Riddhi Bello APRN, BUSHER HELPER CHEMISTRY ORDERAB LES Final Result [facility] [address] [place] [address] * LIPASE (05/29/2023 1:09 PM DIRECTOR OF CATEGORY MANAGEMENT) LIPASE 13 8 - 78 U/L 05/29/2023 1:49 PM DIRECTOR OF CATEGORY MANAGEMENT [facility] Blood Venipuncture / Unknown 05/29/2023 1:09 PM DIRECTOR OF CATEGORY MANAGEMENT 05/29/2023 1:20 PM DIRECTOR OF CATEGORY MANAGEMENT Riddhi Bello SUPERVISOR DOG LICENSE OFFICER, BUSHER HELPER CHEMISTRY ORDERAB LES Final Result Performing Organization Address City/[facility] [[email or web address]] Co de Phone Number [facility] [address] [place] [address] * (ABNORMAL) CMP (COMPREHENSIVE METABOLIC PANEL) (05/29/2023 1:09 PM DIRECTOR OF CATEGORY MANAGEMENT) SODIUM 130(L) 136 - 145 mmol/L 05/29/2023 1:49 PM DIRECTOR OF CATEGORY MANAGEMENT [facility] POTASSIUM 4.5 3.5 - 5.1 mmol/L 05/29/2023 1:49 PM DIRECTOR OF CATEGORY MANAGEMENT [facility] CHLORIDE 101 98 - 107 mmol/L 05/29/2023 1:49 PM DIRECTOR OF CATEGORY MANAGEMENT [facility] CO2, VENOUS 22 22 - 30 mmol/L 05/29/2023 1:49 PM DIRECTOR OF CATEGORY MANAGEMENT [facility] ANION GAP 11.5 <18.0 mmol/L 05/29/2023 1:49 PM DIRECTOR OF CATEGORY MANAGEMENT [facility] GLUCOSE 288(H) 70 - 99 mg/dL 05/29/2023 1:49 PM DIRECTOR OF CATEGORY MANAGEMENT [facility] BUN 11 8 - 26 mg/dL 05/29/2023 1:49 PM DIRECTOR OF CATEGORY MANAGEMENT [facility] CREATININE, BLOOD 1.16 0.70 - 1.30 mg/dL 05/29/2023 1:49 PM DIRECTOR OF CATEGORY MANAGEMENT [facility] BUN/CREATININE RATIO 9(L) 12 - 20 ratio 05/29/2023 1:49 PM [facility] TOTAL PROTEIN 7.1 6.3 - 8.2 g/dL 05/29/2023 1:49 PM [facility] ALBUMIN 3.8 3.5 - 5.0 g/dL 05/29/2023 1:49 PM [facility] A/G RATIO 1.2 1.0 - 2.2 05/29/2023 1:49 PM [facility] CALCIUM 9.6 8.7 - 10.5 mg/dL 05/29/2023 1:49 PM [facility] T BILI 3.4(H) 0.2 - 1.2 mg/dL 05/29/2023 1:49 PM [facility] SGOT (AST) 36(H) 5 - 34 U/L 05/29/2023 1:49 PM [facility] SGPT (ALT) 23 0 - 55 U/L 05/29/2023 1:49 PM [facility] ALKALINE PHOSPHATASE 103 40 - 150 U/L 05/29/2023 1:49 PM [facility] IS THE PATIENT REQUIRED TO BE FASTING? No 05/29/2023 1:49 PM [facility] GFR, ESTIMATED >60 >=60 05/29/2023 1:49 PM [facility] Comment: Creatinine Clearance is the preferred criteria for selecting drug dose adjustments in renally impaired patients. ??The GFR is provided as additional pertinent clinical information. GFR is reported in mL/min/1.73 sq m. Calculation based on the Chronic Kidney Disease Epidemiology Collaboration (CKD- EPI) equation refit without adjustment for race. GFR, EST. >60 >=60 024 1:49 PM [facility] GFR, EST. 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)- Primary Other chronic nonalcoholic liver disease S/P TIPS (transjugular intrahepatic portosystemic shunt) Other postprocedural status History of recent fall Tail bone pain Other disorder of coccyx Pain of upper abdomen Abdominal pain, other specified site Nausea and vomiting, unspecified vomiting type Tail bone pain Other disorder of coccyx Pain of upper abdomen Abdominal pain, other specified site Nausea and vomiting, unspecified vomiting type Pain of upper abdomen Abdominal pain, other specified site Nausea and vomiting, unspecified vomiting type documented in this encounter Care Teams Ropeman Relationship Specialty Start Date End Date Braydon Pavon, [facility] [address] [place] [id number] PCP - General Physician Associate Dean 06/22/18 Vikram Mora MD [address] [address] Consulting Physician Endocrinology 05/21/23 Riddhi Bello APRN, CNP [address] [place] [address] Nurse Practitioner Advanced Practice Nurse 02/10/23 documented as of this encounter
--- OUTSIDE RECORDS SUMMARY | 2024-04-19 23:02 | XMS_ITS | Encounter Summary ---
Author Organization [employer] Care Team Providers Care Photoflash Powder Mixer Name Role Phone Braydon Pavon Primary Care Provider [phone] Vikram Mora MD Unavailable Riddhi Bello APRN, ENDOSCOPY REGISTERED NURSE Unavailable Encounter Details Date Type Department Care Team (Latest Contact Info) Description 08/05/2023 Travel Social History Tobacco Use Types Packs/Day Years Used Date Smoking Tobacco: Former Cigarettes Q uit: 2002 Smokeless Tobacco: Never Alcohol Use Standard Drinks/Week Comments Not Currently 0 (1 standard drink = 0.6 oz pur e alcohol) Sexually Active Control Partners Comments Yes Female Sex and Gender Information Value Date Recorded Sex Assigned at Not on file Legal Sex Male 10:58 AM QUALITY ASSURANCE SUPERVISOR Gender Identity Not on file Sexual Orientation Not on file documented as of this encounter Plan of Treatment Not on file documented as of this encounter Visit Diagnoses Not on filedocumented in this encounter Care Teams Photoflash Powder Mixer Relationship Specialty Start Date End Date Braydon Pavon PAC [address] [place] [id number] PCP - General Physician [facility] 06/22/18 Vikram Mora MD [address] [id number] Consulting Physician Endocrinology 05/21/23 Riddhi Bello APRN, ENDOSCOPY REGISTERED NURSE [address] [place] [address] Nurse Practitioner Advanced Practice Nurse 02/10/23 documented as of this encounter
--- OUTSIDE RECORDS SUMMARY | 2024-04-19 23:02 | XMS_ITS | Encounter Summary ---
Author Organization [facility] Address [address] [place] [address] Phone Care Team Providers Care Auto Driver Name Role Phone BebeabBraydon Primary Care Provider Riddih Bello APRN, PROJECT ASSOCIATE Unavailable Reason for Visit * Reason Onset Date Comments Appointment 05/20/2023 Encounter Details Date Type Department Care Team (Late st Contact Info) Description 05/20/2023 Telephone [facility] - Gastroenterology - [address] [place] [address] Riddhi Bello APRN, PROJECT ASSOCIATE [address] [place] [address] Appointment Social History Tobacco Use Types Packs/Day Years Used Date Smoking Tobacco: Former Cigarettes Q uit: 2002 Smokeless Tobacco: Never Alcohol Use Standard Drinks/Week Comments Not Currently 0 (1 standard drink = 0.6 oz pur e alcohol) Sexually Active Control Partners Comments Yes Female Sex and Gender Information Value Date Recorded Sex Assigned at Not on file Legal Sex Male 10:58 AM POOL HALL INSPECTOR Gender Identity Not on file Sexual Orientation Not on file documented as of this encounter Miscellaneous Notes * Telephone Encounter - Brianna Sorenson RN - 05/20/2023 9:01 AM POOL HALL INSPECTOR Spoke with patient. appt cancelled appt today 05/20/2023 due to provider is out of office. Offered to reschedule patient. He declined due to he reports he is going to the ER for abdominal pain that has been getting worse. Advised patient to call after seen in ER and appt can be r/s. Patient verbalized understanding. HALL INSPECTOR documented in this encounter Plan of Treatment Not on file documented as of this encounter Visit Diagnoses Not on filedocumented in this encounter Care Teams Auto Driver Relationship Specialty Start Date End Date Braydon Pavon PAC [address] [place] [address] PCP - General Physician Junior Automation Engineer 06/22/18 Riddhi Bello APRN, PROJECT ASSOCIATE [address] [place] [address] Nurse Practitioner Advanced Practice Nurse 02/10/23 documented as of this encounter
--- OUTSIDE RECORDS SUMMARY | 2024-04-19 23:02 | XMS_ITS | Encounter Summary ---
Author Organization [employer] Care Team Providers Care Pipe Washer Name Role Phone Braydon Pavon Primary Care Provider [phone] Riddhi Bello APRN, ART STUDIO TEACHER Unavailable Encounter Details Date Type Department Care Team (Latest Contact Info) Description 05/20/2023 Travel Social History Tobacco Use Types Packs/Day Years Used Date Smoking Tobacco: Former Cigarettes Q uit: 2002 Smokeless Tobacco: Never Alcohol Use Standard Drinks/Week Comments Not Currently 0 (1 standard drink = 0.6 oz pur e alcohol) Sexually Active Control Partners Comments Yes Female Sex and Gender Information Value Date Recorded Sex Assigned at Not on file Legal Sex Male 10:58 AM YOKER Gender Identity Not on file Sexual Orientation Not on file documented as of this encounter Plan of Treatment Not on file documented as of this encounter Visit Diagnoses Not on filedocumented in this encounter Care Teams Pipe Washer Relationship Specialty Start Date End Date Braydon Pavon PAC [address] [place] [id number] PCP - General Physician Inbound Call Center Representative 06/22/18 Riddhi Bello APRN, ART STUDIO TEACHER [address] [place] [address] Nurse Practitioner Advanced Practice Nurse 02/10/23 documented as of this encounter
--- OUTSIDE RECORDS SUMMARY | 2024-04-19 23:02 | XMS_ITS | Encounter Summary ---
Author Organization [facility] Address [address] 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 See below for Camilo's current medications, allergies and problem list. CURRENT MEDS: Current Outpatient Medications: albuterol 108 (90 Base) MCG/ACT Aerosol Solution, every 4 hours as needed., Disp: , Rfl: ALPRAZolam (XANAX) 1 MG Tablet, Take by mouth as needed., Disp: , Rfl: carvedilol (COREG) 3.125 MG Tablet, Take 1 Tablet by mouth 2 times daily. (Patient not taking: Reported on 03/24/2023), Disp: 180 Tablet, Rfl: 3 Continuous Blood Gluc Log Handling Equipment Operator (Dexcom G7 Log Handling Equipment Operator) Device, Check blood glucose before each meal and at bedtime, Disp: 1 Each, Rfl: 0 Continuous Blood Gluc Sensor (Dexcom G7 Sensor) Misc, Change sensor every 10 days., Disp: 9 Each, Rfl: 1 ergocalciferol (VITAMIN D) 42745 UNIT Capsule, Take 50,000 Units by mouth. (Patient not taking: Reported on 02/17/2023), Disp: , Rfl: famotidine (PEPCID) 20 MG Tablet, Take 1 Tablet by mouth 2 times daily as needed for Heartburn., Disp: 30 Tablet, Rfl: 0 Glucose Blood Strip, 1 Strip by Does not apply route., Disp: , Rfl: guaiFENesin-codeine (TUSSI-ORGANIDIN NR) 100-10 MG/5ML Syrup, Take 5 mL by mouth every 4 hours as needed for Cough., Disp: , Rfl: HumaLOG KwikPen 100 UNIT/ML Solution Pen-injector, 50 Units 3 times daily (before meals)., Disp: , Rfl: hydroCHLOROthiazide 25 MG Tablet, Take 25 mg by mouth daily. (Patient not taking: Reported on 02/10/2023), Disp: , Rfl: HYDROcodone-acetaminophen (NORCO) 7.5-325 MG Tablet, Take 1 Tablet by mouth every 8 hours as needed., Disp: , Rfl: Insulin Pen Needle (B-D ULTRAFINE III SHORT PEN) 31G X 8 MM Misc, , Disp: , Rfl: Insulin Pen Needle (B-D ULTRAFINE III SHORT PEN) 31G X 8 MM Misc, 1 Each by Subcutaneous route., Disp: , Rfl: Insulin Pen Needle (Pen Ideal) 32G X 4 MM Misc, Inject 3 times daily, Disp: , Rfl: LACTULOSE PO, Take 30 mL by mouth 4 times daily., Disp: , Rfl: Lantus SoloStar 100 UNIT/ML Solution Pen-injector, every 12 hours. 50 units AM and 35 units HS, Disp: , Rfl: Omeprazole 20 MG Tablet Delayed Response, Take 20 mg by mouth daily. (Patient not taking: Reported on 02/10/2023), Disp: , Rfl: ondansetron (ZOFRAN) 4 MG Tablet, Take 4 mg by mouth every 8 hours as needed., Disp: , Rfl: ondansetron (ZOFRAN-ODT) 4 MG TABLET DISPERSIBLE, Take 1 Tablet by mouth every 8 hours as needed for Nausea - 1st line., Disp: 10 Tablet, Rfl: 0 OneTouch Ultra Strip, , Disp: , Rfl: pregabalin (LYRICA) 75 MG Capsule, Take 75 mg by mouth 2 times daily. Indications: Neuropathic Pain, Disp: , Rfl: rifAXIMin (XIFAXAN) 200 MG Tablet, Take 550 mg by mouth 2 times daily. (Patient not taking: Reported on 02/10/2023), Disp: , Rfl: traMADol (ULTRAM) 50 MG Tablet, , Disp: , Rfl: 0 traZODone (DESYREL) 100 MG Tablet, nightly., Disp: , Rfl: No current facility-administered medications for this visit. 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 BLAND (nonalcoholic steatohepatitis) Esophageal varices (HCC) Gallstones Biliary colic Hepatic encephalopathy (HCC) Hypertension Type 2 diabetes mellitus with diabetic polyneuropathy, with long-term current use of insulin (HCC) EXPERT * Other (Routine) - Closed Specialty Diagnoses / Procedures Referred By Jordan t Referred To Contact Gastroenterology Diagnoses BLAND (nonalcoholic steatohepatitis) 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) Procedures GASTRO PROCEDURE Riddhi Bello APRN, DIRECTOR OF FOOD AND NUTRITION [address] [place] [address] Phone: tel: fax: Referral ID Status Reason Start Date Expiration Date Visits Re quested Visits Authorized [id number] Closed 06/09/2023 1 1 EXPERT Reason for Visit * Reason Onset Date Comments Results 06/09/2023 Procedure 06/09/2023 Need Order 06/09/2023 Encounter Details Date Type Department Care Team (Late st Contact Info) Description 06/09/2023 Telephone [facility] - Gastroenterology [facility] [address] [place] [address] Riddhi Bello APRN, DIRECTOR OF FOOD AND NUTRITION [address] [place] [address] Results; Procedure; Need Order Social History Tobacco Use Types Packs/Day Years Used Date Smoking Tobacco: Former Cigarettes Q uit: 2002 Smokeless Tobacco: Never Alcohol Use Standard Drinks/Week Comments Not Currently 0 (1 standard drink = 0.6 oz pur e alcohol) Sexually Active Control Partners Comments Yes Female Sex and Gender Information Value Date Recorded Sex Assigned at Not on file Legal Sex Male 10:58 AM TAX EXPERT Gender Identity Not on file Sexual Orientation Not on file documented as of this encounter Miscellaneous Notes * Telephone Encounter - Brianna Sorenson RN - 06/09/2023 1:57 PM TAX EXPERT Patient is aware and verbalizes understanding. Patient reports that [facility] of TIPs. Noted on 03/04/2024. Patient is asking about getting the MRI at [place] with sedation due to he has a pacemaker. No ordernoted per chart review. Reviewed MRI request with Analisa Bello WATCHMAKING TEACHER and US of TIPS reviewed. Per Analisa Bello WATCHMAKING TEACHER, will await the us TIPS doppler to see what the liver cyst and kidney lesion look like on new US TIPPS then we can make further recommendations. Will place a referral to [facility] hepatology. Called patient, reviewed message above. Patient is aware and verbalizes understanding. External hepatology referral and US doppler of TIPS orders placed. External hepatology and us doppler tips orders and clinical documentation faxed to [facility] fax successful. Referral updated. EXPERT * Telephone Encounter - Brianna Sorenson RN - 06/09/2023 1:54 PM TAX EXPERT Images from the original note were not included. ----- Message from Riddhi Bello APRN, CNP sent at 06/01/2023 10:27 AM TAX EXPERT ----- No fracture to tailbone, just a contusion. Riddhi Bello APRN, CNP 06/02/2023 11:08 AM TAX EXPERT Back to [facility] was normal. No acute changes Message Received: 1 week ago Riddhi Bello APRN, CNP P [place] [facility] Nurse Pool Patient is needing an order for a doppler ultrasound of his TIPs. 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) Expected: 06/09/2023, Expires: 06/09/2024 documented as of this encounter Visit Diagnoses Diagnosis BLAND (nonalcoholic steatohepatitis)- Primary Other chronic nonalcoholic liver disease S/P TIPS (transjugular intrahepatic portosystemic shunt) Other postprocedural status 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
--- OUTSIDE RECORDS SUMMARY | 2024-04-19 23:02 | XMS_ITS | Encounter Summary ---
Author Organization [employer] Care Team Providers Care Triage Specialist Name Role Phone Braydon Pavon Primary Care Provider [phone] Vikram Mora MD Unavailable Riddhi Bello APRN, TAPPER BALANCE WHEEL SCREW HOLE Unavailable Encounter Details Date Type Department Care Team (Latest Contact Info) Description 05/29/2023 Travel Social History Tobacco Use Types Packs/Day Years Used Date Smoking Tobacco: Former Cigarettes Q uit: 2002 Smokeless Tobacco: Never Alcohol Use Standard Drinks/Week Comments Not Currently 0 (1 standard drink = 0.6 oz pur e alcohol) Sexually Active Control Partners Comments Yes Female Sex and Gender Information Value Date Recorded Sex Assigned at Not on file Legal Sex Male 10:58 AM COIL MACHINE OPERATOR Gender Identity Not on file Sexual Orientation Not on file documented as of this encounter Plan of Treatment Not on file documented as of this encounter Visit Diagnoses Not on filedocumented in this encounter Care Teams Triage Specialist Relationship Specialty Start Date End Date Braydon Pavon PAC [address] [place] [address] PCP - General Physician House Manager 06/22/18 Vikram Mora MD [address] [phone] Consulting Physician Endocrinology 05/21/23 Riddhi Bello APRN, TAPPER BALANCE WHEEL SCREW HOLE [address] [place] [address] Nurse Practitioner Advanced Practice Nurse 02/10/23 documented as of this encounter
--- OUTSIDE RECORDS SUMMARY | 2024-04-19 23:02 | XMS_ITS | Encounter Summary ---
Author Organization [facility] Address [address] [place] [address] Phone Care Team Providers Care Woods Overseer Name Role Phone Braydon Pavon Kunal NEAL Primary Care Provider [phone] Riddhi Bello APRN, ELECTRICAL CAD DESIGNER Unavailable Reason for Visit * Auth/Cert (Routine) Specialty Diagnoses / Procedures Referred By Jordan casillas Referred To Contact Diagnoses ESOPHAGEAL VARICES, HISTORY OF COLON POLYPS Procedures EGD COLONOSCOPY Referral ID Status Reason Start Date Expiration Date Visits Re quested Visits Authorized [id number] 1 1 Encounter Details Date Type Department Care Team (Late st Contact Info) Description 03/24/2023 6:30 AM ADULT SPECIALIST Ancillary [facility] [address] [place] [address] Ac Berger MD [address] [facility] [address] [place] [address] Provider, Anesthesiologist Social History Tobacco Use Types Packs/Day Years Used Date Smoking Tobacco: Former Cigarettes Q uit: 2002 Smokeless Tobacco: Never Alcohol Use Standard Drinks/Week Comments Not Currently 0 (1 standard drink = 0.6 oz pur e alcohol) Sexually Active Control Partners Comments Yes Female Sex and Gender Information Value Date Recorded Sex Assigned at Not on file Legal Sex Male 10:58 AM ADULT SPECIALIST Gender Identity Not on file Sexual Orientation Not on file COVID-19 Exposure Response Date Recorded In the last 10 days, have yo u been in contact with someone who was confirmed or suspected to have Coronavirus/COVID-19? No / Unsure 02/26/2023 8:15 AM CDT documented as of this encounter Plan of Treatment Not on file documented as of this encounter Procedures Procedure Name Priority Date/Time Associated Diagnosis Comments GI LAB IMAGING - EGD Routine 03/24/2023 6:23 AM ADULT SPECIALIST documented in this encounter Results * GI LAB IMAGING - EGD (03/24/2023 6:23 AM ADULT SPECIALIST) us Ac Berger MD IMG DIAGNOSTIC ORDERABLES Final Result documented in this encounter Visit Diagnoses Not on filedocumented in this encounter Care Teams Woods Overseer Relationship Specialty Start Date End Date Braydon Pavon PAC [address] [place] [address] PCP - General Physician Engineering Agent 06/22/18 Riddhi Bello APRN, ELECTRICAL CAD DESIGNER [address] [place] [address] Nurse Practitioner Advanced Practice Nurse 02/10/23 documented as of this encounter
--- OUTSIDE RECORDS SUMMARY | 2024-04-19 23:02 | XMS_ITS | Encounter Summary ---
Author Organization [facility] Address [address] [place] [address] Phone Care Team Providers Care Solar Project Manager Name Role Phone Braydon Pavon Primary Care Provider [phone] Riddhi Bello APRN, CASING MAN Unavailable Reason for Visit * Reason Onset Date Comments Results 03/03/2023 Encounter Details Date Type Department Care Team (Late st Contact Info) Description 03/03/2023 Telephone [facility] - Gastroenterology - [address] [place] [address] Riddhi Bello APRN, CASING MAN [address] [place] [address] Results Social History Tobacco Use Types Packs/Day Years Used Date Smoking Tobacco: Former Cigarettes Q uit: 2002 Smokeless Tobacco: Never Alcohol Use Standard Drinks/Week Comments Not Currently 0 (1 standard drink = 0.6 oz pur e alcohol) Sexually Active Control Partners Comments Yes Female Sex and Gender Information Value Date Recorded Sex Assigned at Not on file Legal Sex Male 10:58 AM CROP PULLER Gender Identity Not on file Sexual Orientation Not on file COVID-19 Exposure Response Date Recorded In the last 10 days, have yo u been in contact with someone who was confirmed or suspected to have Coronavirus/COVID-19? No / Unsure 02/26/2023 8:15 AM CDT documented as of this encounter Miscellaneous Notes * Telephone Encounter - Carrizales, Brianna A, RN - 03/03/2023 1:57 PM CDT Patient is aware and verbalizes understanding. Patient wanted to update provider that the pain clinic placed him on norco 7.5 mg po tid due to kalPP0H is too high for injections. They are working on getting his blood sugars down so he can go offthe norco and get injections. He stated the pain doctor knows patient has a hx of cirrhosis. Analisa Bello TEA TASTER updated. * Telephone Encounter - Brianna Sorenson RN - 03/03/2023 12:09 PM CDT Left message to call back. * Telephone Encounter - Brianna Sorenson RN - 03/03/2023 12:09 PM CDT ----- Message from Riddhi Bello APRN, CNP sent at 03/02/2023 9:57 AM CDT ----- Ultrasound shows changes to the liver compatible with the liver cirrhosis. No mass or lesion was seen. documented in this encounter Plan of Treatment Not on file documented as of this encounter Visit Diagnoses Not on filedocumented in this encounter Care Teams Solar Project Manager Relationship Specialty Start Date End Date Braydon Pavon PAC [address] [place] [id number] PCP - General Physician Assisted Living Coordinator 06/22/18 Riddhi Bello APRN, CASING MAN [address] [place] [address] Nurse Practitioner Advanced Practice Nurse 02/10/23 documented as of this encounter
--- OUTSIDE RECORDS SUMMARY | 2024-04-19 23:02 | XMS_ITS | Encounter Summary ---
Author Organization [facility] Address [address] [place] [address] Phone Care Team Providers Care User Experience Manager Name Role Phone Braydon Pavon Kunal PAC Primary Care Provider [phone] Riddhi Bello APRN, NURSING PROJECT COORDINATOR Unavailable Reason for Visit * Auth/Cert (Routine) Specialty Diagnoses / Procedures Referred By Jordan casillas Referred To Contact Diagnoses ESOPHAGEAL VARICES, HISTORY OF COLON POLYPS Procedures EGD COLONOSCOPY Referral ID Status Reason Start Date Expiration Date Visits Re quested Visits Authorized [id number] 1 1 Encounter Details Date Type Department Care Team (Late st Contact Info) Description 03/24/2023 7:34 AM 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 [facility] [address] [place] [address] Raffaele Chance APRN, BOARD CERTIFIED MUSIC THERAPIST [address] [place] [address] Anesthesia Record Procedure Summary Procedure Name Responsible Anesthesiologist Anesthesia Start Time Anesthesia Stop Time EGD-PORTAL HYPERTENSIVE GASTROPATHY, GRADE ONE ESOPHAGEAL VARCIES Raffaele Chance APRN, BOARD CERTIFIED MUSIC THERAPIST 03/24/23 0734 03/24/23 0807 Events Date Time Event Comment 03/24/2023 0719 0734 An Start 0734 An Start Data 0734 ANASSESSCMPLT 0734 Start Supplemental O2 0734 Anesthesia Ready 0804 Stop Supplemental O2 0804 Stop Data Collection 0804 Transort to Postop 0807 Handoff to RN I completed my SBAR handoff to the receiving nurse. Last vitals BP: 134/72 Temp: 36 ??C (96.8 ??F) Pulse: 94 Resp: 9 SpO2: 98 % 0807 An Stop Last vitals: BP : 134/72 Temp: 36 ??C (96.8 ??F) Pulse: 94 Resp: 9 SpO2: 98 % Meds Name Total propofol 10 mg/mL 374,400 mcg lactated ringers infusion 0 mL * Agents Name Inspired CO2 (mmHg) ETCO2 (mmHg) * Blood No blood administrations on file. 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 No / Unsure 02/26/2023 8:15 AM CDT documented as of this encounter OR Notes * Anesthesia Postprocedure Evaluation - Raffaele Chance APRN, BOARD CERTIFIED MUSIC THERAPIST - 03/24/2023 8:14 AM CST Patient: Camilo Curry Procedure Summary Date: 03/24/23 Room / Location: [facility] / [facility] MAIN Anesthesia Start: 733 Anesthesia Stop: 806 Procedures: EGD-PORTAL HYPERTENSIVE GASTROPATHY, GRADE ONE ESOPHAGEAL VARCIES COLONOSCOPY-CECAL POLYP REMOVED BY HOT SNARE, DIVERTICULOSIS Diagnosis: (EGD- PORTAL HYPERTENSIVE GASTROPATHY, GRADE ONE ESOPHAGEAL VARCIES COLONOSCOPY-CECAL POLYP REMOVED BY HOT SNARE, DIVERTICULOSIS) Surgeons: Ac Berger MD Responsible Provider: Raffaele Chance APRN, CRNA Anesthesia Type: MAC ASA Status: 3 Anesthesia Type: MAC Last vitals Vitals Value Taken Time BP 123/55 03/24/23 0806 Temp Pulse 97 03/24/23 0806 Resp 27 03/24/23 0806 SpO2 97 % 03/24/23 0806 Pain score: 0 Pain management: adequate Patient location during evaluation: GI Lab Patient participation: Sufficiently recovered to participate Level of consciousness: sleepy but conscious Cardiovascular status: acceptable Respiratory status: acceptable Hydration status: acceptable Comments: Vital signs on nursing flowsheet Anesthetic complications: no Airway patency: patent Nausea and Vomiting: none TRUCK OPERATOR * Anesthesia Preprocedure Evaluation - Raffaele Chance APRN, CRNA - 03/24/2023 7:17 AM CST Anesthesia Evaluation Procedure Information Date/Time: 03/24/23729 Procedures: EGD COLONOSCOPY Location: [facility] / [facility] MAIN Surgeons: Ac Berger MD Patient summary reviewed and Nursing notes reviewed No history of anesthetic complications No family history of anesthesia reaction Allergies: -- Iodinated Contrast Media -- Swelling and Rash -- Azactam (Aztreonam In Dextrose) -- Unknown -- Aztreonam -- Unknown -- Ciprofloxacin Hcl -- Unknown -- Duloxetine Hcl -- Unknown -- Erythromycin -- Unknown -- Nexium (Esomeprazole Magnesium) -- Unknown -- Octreotide -- Unknown -- Penicillins -- Unknown -- Sulfa Antibiotics -- Unknown -- Wound Dressing Adhesive -- Other (see Comments) -- Tape - Blisters Patient allergies reviewed. Medications: Current Facility-Administered Medications: ??? lactated ringers infusion, 20 mL/hr, Intravenous, Continuous, Ac Berger MD ??? ondansetron (ZOFRAN) injection 4 mg, 4 mg, Intravenous, Once PRN, Ac Berger MD Medications Prior to Admission: albuterol 108 (90 Base) MCG/ACT Aerosol Solution, every 4 hours as needed., Disp: , Rfl: ALPRAZolam (XANAX) 1 MG Tablet, Take by mouth as needed., Disp: , Rfl: carvedilol (COREG) 3.125 MG Tablet, Take 1 Tablet by mouth 2 times daily. (Patient not taking: Reported on 03/24/2023), Disp: 180 Tablet, Rfl: 3 ergocalciferol (VITAMIN D) 43744 UNIT Capsule, Take 50,000 Units by mouth. (Patient not taking: Reported on 02/17/2023), Disp: , Rfl: Glucose Blood Strip, 1 Strip by Does [...] Disp: , Rfl: Insulin Pen Needle (Pen Holt) 32G X 4 MM Misc, Inject 3 times daily, Disp: , Rfl: Insulin Regular Human (HUMULIN R IJ), 150 Units by Injection route. Indications: 150 units in AM, 100 units in PM (Patient not taking: Reported on 02/10/2023), Disp: , Rfl: LACTULOSE PO, Take 30 mL by mouth 4 times daily., Disp: , Rfl: Lantus SoloStar 100 UNIT/ML Solution Pen-injector, every 12 hours. 50 units AM and 35 units HS, Disp: , Rfl: metFORMIN (GLUCOPHAGE) 1000 MG Tablet, Take 1,000 mg by mouth 2 times daily (with meals). (Patient not taking: Reported on 02/10/2023), Disp: , Rfl: Omeprazole 20 MG Tablet Delayed Response, Take 20 mg by mouth daily. (Patient not taking: Reported on 02/10/2023), Disp: , Rfl: ondansetron (ZOFRAN) 4 MG Tablet, Take 4 mg by mouth every 8 hours as needed., Disp: , Rfl: OneTouch Ultra Strip, , Disp: , Rfl: [...] 100 MG Tablet, nightly., Disp: , Rfl: Trulicity 0.75 MG/0.5ML Solution Pen-injector, once a week., Disp: , Rfl: Patient medications reviewed. Airway Mallampati: II TM distance: <3 FB Neck ROM: full Dental - normal exam Pulmonary - negative ROS and normal exam breath sounds clear to auscultation Cardiovascular - normal exam Exercise tolerance: good (+) hypertension, Rhythm: regular Rate: normal Neuro/Psych - negative ROS GI/Hepatic/Renal (+) liver disease, Endo/Other (+) type II DM Risks, benefits, alternatives discussed with:patient. Anesthesia Plan ASA 3 MAC intravenous induction Anesthetic plan and risks discussed with Patient. Plan discussed with BOARD CERTIFIED MUSIC THERAPIST and surgeon. TRUCK OPERATOR documented in this encounter Plan of Treatment Not on file documented as of this encounter Visit Diagnoses Not on filedocumented in this encounter Administered Medications Inactive Administered Medications - up to 3 most recent administrations Medication Order MAR Action Action Date Dose Rate Site propofol (DIPRIVAN) injection Intravenous, CONTINUOUS (in OR), Starting on Thu03/24/23 at 0736, Until Thu03/24/23 at 0808 Rate Change 03/24/2023 7:56 AM LIVE TRUCK OPERATOR 140 mcg/kg/min 81.9 mL/hr New Bag 03/24/2023 7:36 AM LIVE TRUCK OPERATOR 150 mcg/kg/min 87.75 mL/ hr documented in this encounter Care Teams User Experience Manager Relationship Specialty Start Date End Date Braydon Pavon PAC [address] [place] [address] PCP - General Physician Language Pathologist 06/22/18 Riddhi Bello APRN, NURSING PROJECT COORDINATOR [address] [place] [address] Nurse Practitioner Advanced Practice Nurse 02/10/23 documented as of this encounter
--- OUTSIDE RECORDS SUMMARY | 2024-04-19 23:02 | XMS_ITS | Encounter Summary ---
Author Organization [facility] Address [address] [place] [address] Phone Care Team Providers Care Mechanical Developer Prover Name Role Phone Braydon Pavon Kunal NEAL Primary Care Provider [phone] Riddhi Bello APRN, SOFT SUGAR CUTTER Unavailable Reason for Visit * Reason Comments Abdominal Pain Encounter Details Date Type Department Care Team (Late st Contact Info) Description 05/20/2023 10:31 AM GENERAL SERVICE TECHNICIAN - 05/20/2023 3:42 PM GENERAL SERVICE TECHNICIAN Emergency [facility] Emergency [address] [place] [address] Holly Sandy APRN, SOFT SUGAR CUTTER [address] [place] [address] Cholelithiasis Discharge Disposition: Discharged to home or Selfcare [...] on file Legal Sex Male 10:58 AM GENERAL SERVICE TECHNICIAN Gender Identity Not on file Sexual Orientation Not on file documented as of this encounter Last Filed Vital Signs Vital Sign Reading Time Taken Comments Blood Pressure 109/69 05/20/2023 3:30 PM GENERAL SERVICE TECHNICIAN Pulse 85 05/20/2023 3:30 PM GENERAL SERVICE TECHNICIAN Temperature 36.7 ??C (98.1 ??F) 05/20/2023 10:[address] Respiratory Rate 14 05/20/2023 10:32 AM GENERAL SERVICE TECHNICIAN Oxygen Saturation 98% 05/20/2023 3:30 PM GENERAL SERVICE TECHNICIAN Inhaled Oxygen Concentration - - Weight 95.8 kg (211 lb 3.2 oz) 05/20/2023 10:32 AM GENERAL SERVICE TECHNICIAN Height 170.2 cm (5' 7 ) 05/20/2023 10:32 AM GENERAL SERVICE TECHNICIAN Body Mass Index 33.08 05/20/2023 10:32 AM GENERAL SERVICE TECHNICIAN documented in this encounter Discharge Instructions * Discharge Instructions* Holly Sandy APRN, CNP - 05/20/2023 3:24 PM GENERAL SERVICE TECHNICIAN Please follow-up with cup machine operator and GI specialist as soon as possible. Return to the ED immediately with worsening symptoms. RAL SERVICE TECHNICIAN * Attachments The following attachments cannot be sent through Care Everywhere. * Gastroesophageal Reflux Disease Adult [id number] (Latvian) * Cirrhosis (Latvian) * Esophageal Varices (Latvian) documented in this encounter Medications at Time of Discharge albuterol 108 (90 Base) MCG/ACT Aerosol Solution every 4 hours as needed. 02/02/2023 ALPRAZolam (XANAX) 1 MG Tablet Take by mouth as needed. carvedilol (COREG) 3.125 MG Tablet Take 1 Tablet by mouth 2 times daily. 180 Tablet 3 02/17/2023 ergocalciferol (VITAMIN D) 39216 UNIT Capsule Take 50,000 Units by mouth. famotidine (PEPCID) 20 MG Tablet Take 1 Tablet by mouth 2 times daily as needed for Heartburn. 30 Tablet 05/20/2023 Glucose Blood Strip 1 Strip by Does not apply route. 12/08/2018 HumaLOG KwikPen 100 UNIT/ML Solution Pen-injector 3 times daily (before meals). 02/02/2023 hydroCHLOROthiazi de 25 MG Tablet Take 25 mg by mouth daily. HYDROcodone-aceta minophen (NORCO) 7.5-325 MG Tablet Take 10 Tablets by mouth three times a week. Insulin Pen Needle (B-D ULTRAFINE III SHORT PEN) 31G X 8 MM Misc 02/26/2021 Insulin Pen Needle (B-D ULTRAFINE III SHORT PEN) 31G X 8 MM Misc 1 Each by Subcutaneous route. 11/07/2020 Insulin Pen Needle (Pen [place]) 32G X 4 MM Misc Inject 3 times daily 08/04/2019 Lantus SoloStar 100 UNIT/ML Solution Pen-injector every 12 hours. 50 units AM and 35 units HS 02/02/2023 Omeprazole 20 MG Tablet Delayed Response Take 20 mg by mouth daily. ondansetron (ZOFRAN) 4 MG Tablet Take 4 mg by mouth every 8 hours as needed. ondansetron (ZOFRAN-ODT) 4 MG TABLET DISPERSIBLE Take 1 Tablet by mouth every 8 hours as needed for Nausea - 1st line. 10 Tablet 05/20/2023 OneTouch Ultra Strip 02/02/2023 rifAXIMin (XIFAXAN) 200 MG Tablet Take 550 mg by mouth 2 times daily. traZODone (DESYREL) 100 MG Tablet nightly. 02/02/2023 guaiFENesin-codei ne (TUSSI-ORGANIDIN NR) 100-10 MG/5ML Syrup Take 5 mL by mouth every 4 hours as needed for Cough. 4 Insulin Regular Human (HUMULIN R IJ)Indications:15 0 units in AM, 100 units in PM 150 Units by Injection route. Indications: 150 units in AM, 100 units in PM 4 LACTULOSE PO Take 30 mL by mouth 4 times daily. 4 metFORMIN (GLUCOPHAGE) 1000 MG Tablet Take 1,000 mg by mouth 2 times daily (with meals). 4 pregabalin (LYRICA) 75 MG CapsuleIndication s:Neuropathic Pain Take 75 mg by mouth 2 times daily. Indications: Neuropathic Pain 4 traMADol (ULTRAM) 50 MG Tablet 0 02/02/2023 4 Trulicity 0.75 MG/0.5ML Solution Pen-injector once a week. 02/02/2023 4 documented as of this encounter ED Notes * Lelia Alicea RN - 05/20/2023 3:40 PM CST Patient discharged. Discharge instructions and patient educational material reviewed with patient; questions and concerns addressed; patient verbalizes understanding, using teach back. Patient was given two prescriptions. Patient discharged per ambulatory mode with as responsible constitution party. SL D/C'ed with Uriel cath intact. RAL SERVICE TECHNICIAN * Lelia Alicea RN - 05/20/2023 2:30 PM CST Patient's SpO2 noted to be in the mid 70s-80s on room air while sleeping; placed on 2L/NC. Reports he is to have a sleep study soon to officially diagnose his sleep apnea. Evelio Sandy APRN made aware. Patient reports relief from Fentanyl and denies nausea. RAL SERVICE TECHNICIAN * Lelia Alicea RN - 05/20/2023 2:06 PM CST Pt medicated per provider orders. Pt educated on intended effects and side effects of medication and verbalized understanding, able to provide teach back of education. RAL SERVICE TECHNICIAN * Lelia Alicea RN - 05/20/2023 1:23 PM CST Report received from BETHANY Adan. RAL SERVICE TECHNICIAN * Abigail Amaro RN - 05/20/2023 12:49 PM CST Pt ambulatory to restroom. RAL SERVICE TECHNICIAN * Danielle Duckworth RN - 05/20/2023 12:32 PM CST Pt's monitor shows 84% on room air. Pt assessed and appears to be sleeping. Chest rise and fall noted. Pt woke up and an improvement in SPO2 noted back to 97%. Pt reports having sleep apnea and is waiting to have a sleep study. Pt denies any chest pain or SOB at this time. Provider aware of event. RAL SERVICE TECHNICIAN * Antionette Brock RN - 05/20/2023 12:10 PM CST Pt medicated per provider orders. Pt educated on intended effects and side effects of medication and verbalized understanding, able to provide teach back of education. Call light in reach. RAL SERVICE TECHNICIAN * Abigail Amaro RN - 05/20/2023 11:07 AM CST Pt medicated per provider orders. Pt educated on intended effects and side effects of medication and verbalized understanding, able to provide teach back of education. RAL SERVICE TECHNICIAN * Holly Sandy APRN, SOFT SUGAR CUTTER - 05/20/2023 11:06 AM CST Chief Complaint Patient presents with ??? Abdominal Pain Camilo Curry is a 52 y.o. male who presents to the ED c/o intermittent Epigastric pain that has been ongoing for past month. Patient states that the pain worsened in severity over the past 4 days. Hedescribes the pain as intermittent sharp states that nothing appears to make this pain better or wor se. He denies associated nausea, diarrhea states that he a low-grade fever a few days ago but a fever recently patient states that he was scheduled for a GI appointment this morning that was canceled. Patient denies chest pain, shortness of breath, recent illness. He reports history of diabetes, liver cirrhosis, hepatitis, BLAND, esophageal varices. Past Medical History Positives No date: Anxiety No date: Cirrhosis of liver (HCC) No date: Diabetes mellitus (HCC) No date: Esophageal varices (HCC) No date: Hepatitis No date: BLAND (nonalcoholic steatohepatitis) No date: Spinal stenosis Current Facility-Administered Medications Medication Dose Route Frequency Provider Last Rate Last Admin ??? glucose (GLUTOSE) 40 % gel GEL 15 g 15 g Oral PRN Holly Sandy APRN, DOROTHY Or ??? dextrose 50 % solution 12.5 g 12.5 g Intravenous PRN Holly Sandy APRN, CNP Or ??? Glucagon Emergency injection KIT 1 mg 1 mg Intramuscular PRN Holly Sandy APRN, CNP Or ??? Glucagon Emergency injection KIT 1 mg 1 mg Subcutaneous PRN Holly Sandy APRN, DOROTHY Current Outpatient Medications Medication Sig Dispense Refill ??? albuterol 108 (90 Base) MCG/ACT Aerosol Solution every 4 hours as needed. ??? ALPRAZolam (XANAX) 1 MG Tablet Take by mouth as needed. ??? carvedilol (COREG) 3.125 MG Tablet Take 1 Tablet by mouth 2 times daily. (Patient not taking: Reported on 03/24/2023) 180 Tablet 3 ??? ergocalciferol (VITAMIN D) 51260 UNIT Capsule Take 50,000 Units by mouth. (Patient not taking: Reported on 02/17/2023) ??? famotidine (PEPCID) 20 MG Tablet Take 1 Tablet by mouth 2 times daily as needed for Heartburn. 30 Tablet 0 ??? Glucose Blood Strip 1 Strip by Does not apply route. ??? guaiFENesin-codeine (TUSSI-ORGANIDIN NR) 100-10 MG/5ML Syrup Take 5 mL by mouth every 4 hours as needed for Cough. ??? HumaLOG KwikPen 100 UNIT/ML Solution Pen-injector 50 Units 3 times daily (before meals). ??? hydroCHLOROthiazide 25 MG Tablet Take 25 mg by mouth daily. (Patient not taking: Reported on 02/10/2023) ??? HYDROcodone-acetaminophen (NORCO) 7.5-325 MG Tablet Take 1 Tablet by mouth every 8 hours as needed. ??? Insulin Pen Needle (B-D ULTRAFINE III SHORT PEN) 31G X 8 MM Misc ??? Insulin Pen Needle (B-D ULTRAFINE III SHORT PEN) 31G X 8 MM Misc 1 Each by Subcutaneous route. ??? Insulin Pen Needle (Pen [place]) 32G X 4 MM Misc Inject 3 times daily ??? Insulin Regular Human (HUMULIN R IJ) 150 Units by Injection route. Indications: 150 units in AM, 100 units in PM (Patient not taking: Reported on 02/10/2023) ??? LACTULOSE PO Take 30 mL by mouth 4 times daily. ??? Lantus SoloStar 100 UNIT/ML Solution Pen-injector every 12 hours. 50 units AM and 35 units HS ??? metFORMIN (GLUCOPHAGE) 1000 MG Tablet Take 1,000 mg by mouth 2 times daily (with meals). (Patient not taking: Reported on 02/10/2023) ??? Omeprazole 20 MG Tablet Delayed Response Take 20 mg by mouth daily. (Patient not taking: Reported on 02/10/2023) ??? ondansetron (ZOFRAN) 4 MG Tablet Take 4 mg by mouth every 8 hours as needed. ??? ondansetron (ZOFRAN-ODT) 4 MG TABLET DISPERSIBLE Take 1 Tablet by mouth every 8 hours as neededfor Nausea - 1st line. 10 Tablet 0 ??? OneTouch Ultra Strip ??? pregabalin (LYRICA) 75 MG Capsule Take 75 mg by mouth 2 times daily. Indications: Neuropathic Pain ??? rifAXIMin (XIFAXAN) 200 MG Tablet Take 550 mg by mouth 2 times daily. (Patient not taking: Reported on 02/10/2023) ??? traMADol (ULTRAM) 50 MG Tablet (Patient not taking: Reported on 02/27/2023) 0 ??? traZODone (DESYREL) 100 MG Tablet nightly. ??? Trulicity 0.75 MG/0.5ML Solution Pen-injector once a week. Allergies Allergen Reactions ??? Iodinated Contrast Media Swelling and Rash ??? Azactam [Aztreonam In Dextrose] Unknown ??? Aztreonam Unknown ??? Ciprofloxacin Hcl Unknown ??? Duloxetine Hcl Unknown ??? Erythromycin Unknown ??? Nexium [Esomeprazole Magnesium] Unknown ??? Octreotide Unknown ??? Penicillins Unknown ??? Sulfa Antibiotics Unknown ??? Wound Dressing Adhesive Other (see Comments) Tape - Blisters Past Medical History Positives Diagnosis Date ??? Anxiety ??? Cirrhosis of liver (HCC) ??? Diabetes mellitus (HCC) ??? Esophageal varices (HCC) ??? Hepatitis ??? BLAND (nonalcoholic steatohepatitis) ??? Spinal stenosis Past Surgical History: Procedure Laterality Date ??? COLONOSCOPY N/A 03/24/2023 Procedure: COLONOSCOPY-CECAL POLYP REMOVED BY HOT SNARE, DIVERTICULOSIS; Surgeon: Ac Berger MD; Location: [facility]; Service: Gastroenterology ??? COLONOSCOPY W/ BIOPSY 2005 ??? EGD WITH BANDING ??? EGD WITH BANDING ??? TIPS PROCEDURE TIMES 2 ??? UPPER GASTROINTESTINAL ENDOSCOPY N/A 03/24/2023 Procedure: EGD-PORTAL HYPERTENSIVE GASTROPATHY, GRADE ONE ESOPHAGEAL VARCIES; Surgeon: Ac Berger MD; Location: [facility]; Service: Gastroenterology Social History Socioeconomic History ??? Marital status: Spouse name: Not on file ??? Number of children: Not on file ??? Years of education: Not on file ??? Highest education level: Not on file Occupational History ??? Not on file Tobacco Use ??? Smoking status: Former Types: Cigarettes Quit date: 2002 Years since quittin.0 ??? Smokeless tobacco: Never Vaping Use ??? Vaping Use: Former Substance and Sexual Activity ??? Alcohol use: Not Currently ??? Drug use: Not Currently ??? Sexual activity: Yes Partners: Female Other Topics Concern ??? Not on file Social History Narrative ??? Not on file Social Determinants of Health Financial Resource Needs: Not on file Food Insecurity Needs: Not on file Transportation Needs: Not on file Physical Activity: Not on file Stress: Not on file Social Integration: Not on file Intimate Partner Violence: Not on file Housing Stability: Not on file BP 127/64 Pulse 74 Temp 98.1 ??F (36.7 ??C) (Tympanic) Resp 14 Ht 5' 7 (1.702 m) Wt 211 lb 3.2 oz (95.8 kg) SpO2 95% BMI 33.08 kg/m?? Review of Systems Constitutional: Positive for fever. Negative for chills. HENT: Negative for congestion, ear pain, rhinorrhea and sore throat. Eyes: Negative for discharge. Respiratory: Negative for cough, chest tightness, shortness of breath and wheezing. Cardiovascular: Negative for chest pain and palpitations. Gastrointestinal: Positive for abdominal pain. Negative for diarrhea, nausea and vomiting. Genitourinary: Negative for flank pain and testicular pain. Musculoskeletal: Negative for back pain and myalgias. Skin: Negative for rash and wound. Neurological: Negative for syncope and headaches. All other systems reviewed and are negative. Physical Exam Vitals and nursing note reviewed. Constitutional: General: He is not in acute distress. Appearance: He is well-developed. He is not diaphoretic. HENT: Head: Normocephalic and atraumatic. Eyes: Pupils: Pupils are equal, round, and reactive to light. Neck: Thyroid: No thyromegaly. Cardiovascular: Rate and Rhythm: Normal rate and regular rhythm. Heart sounds: Normal heart sounds. No murmur heard. Pulmonary: Effort: Pulmonary effort is normal. No respiratory distress. Breath sounds: Normal breath sounds. No wheezing, rhonchi or rales. Chest: Chest wall: No tenderness. Abdominal: General: Bowel sounds are normal. There is no distension. Palpations: Abdomen is soft. There is no mass. Tenderness: There is abdominal tenderness in the epigastric area. There is no guarding or rebound. Musculoskeletal: General: No tenderness. Normal range of motion. Cervical back: Normal range of motion and neck supple. Lymphadenopathy: Cervical: No cervical adenopathy. Skin: General: Skin is warm and dry. Coloration: Skin is not pale. Findings: No erythema or rash. Neurological: Mental Status: He is alert and oriented to person, place, and time. Cranial Nerves: No cranial nerve deficit. Psychiatric: Behavior: Behavior normal. Procedures Recent Results (from the past 24 hour(s)) Urinalysis w/ Reflex Result Value Ref Range SPECIFIC GRAVITY 1.010 1.003 - 1.030 URINE PH 5.0 5.0 - 9.0 WBC ESTERASE Negative Negative NITRITE Negative Negative PROTEIN, RANDOM URINE Negative Negative URINE GLUCOSE, QUAL 1000 mg/dL (A) Negative URINE KETONES Negative Negative UROBILINOGEN Normal Normal mg/dL URINE BLOOD Negative Negative kristan/ul URINALYSIS COLOR Yellow URINALYSIS CLARITY Clear CMP Result Value Ref Range SODIUM 129 (L) 136 - 145 mmol/L POTASSIUM 4.2 3.5 - 5.1 mmol/L CHLORIDE 98 98 - 107 mmol/L CO2, VENOUS 23 22 - 30 mmol/L ANION GAP 12.2 <18.0 mmol/L GLUCOSE 517 (HH) 70 - 99 mg/dL BUN 13 8 - 26 mg/dL CREATININE, BLOOD 0.92 0.70 - 1.30 mg/dL BUN/CREATININE RATIO 14 12 - 20 ratio TOTAL PROTEIN 6.7 6.3 - 8.2 g/dL ALBUMIN 3.5 3.5 - 5.0 g/dL A/G RATIO 1.1 1.0 - 2.2 CALCIUM 9.3 8.7 - 10.5 mg/dL T BILI 2.2 (H) 0.2 - 1.2 mg/dL SGOT (AST) 26 5 - 34 U/L SGPT (ALT) 20 0 - 55 U/L ALKALINE PHOSPHATASE 89 40 - 150 U/L GFR, ESTIMATED >60 >=60 GFR, EST. >60 >=60 GFR, EST. NONAFRICAN >60 >=60 Lipase Result Value Ref Range LIPASE 44 8 - 78 U/L CBC with Auto Differential Result Value Ref Range WBC 3.71 (L) 4.00 - 12.00 10(3)/mcL RBC 5.79 4.40 - 5.80 10(6)/mcL HEMOGLOBIN (HGB) 14.0 13.0 - 16.5 g/dL HEMATOCRIT (HCT) 43.4 38.0 - 50.0 % MCV 75.0 (L) 82.0 - 96.0 fL MCH 24.2 (L) 26.0 - 32.0 pg MCHC 32.3 31.0 - 36.0 g/dL PLATELET COUNT 98 (L) 140 - 440 10(3)/mcL RDW 16.8 (H) 11.8 - 15.5 % MPV 10.4 8.0 - 12.6 fL NRBC PER 100 WBC 0 TROPONIN I, HIGH SENSITIVITY (HSTRP) Result Value Ref Range TROPONIN I, HIGH SENSITIVITY- ANDERSON <3 <=35 ng/L Magnesium (Mg) Result Value Ref Range MAGNESIUM 1.8 1.6 - 2.6 mg/dL Acetone/Ketones Qualitative-Blood Result Value Ref Range ACETONE Negative Negative Hemoglobin A1C Result Value Ref Range HGB-A1C 11.6 (H) 4.0 - 6.0 % Est Average Glucose 286.2 mg/dL TROPONIN I, HIGH SENSITIVITY (HSTRP) Result Value Ref Range TROPONIN I, HIGH SENSITIVITY- ANDERSON <3 <=35 ng/L POCT Glucose Result Value Ref Range GLUCOSE,BEDSIDE POCT 336 (H) 70 - 99 mg/dL Imaging Results US TIPS W/COLOR DOPPLER LIMITED (Canceled) CT ABDOMEN PELVIS W/O CONTRAST (Final result) Result time 05/20/23 11:52:08 Final result by Geremias Chamberlain MD (05/20/23 11:52:08) Impression: IMPRESSION: 1. Subtle peripancreatic stranding. This could represent pancreatitis. Recommend correlation with serum lipase. 2. Cholelithiasis without CT evidence of acute cholecystitis. 3. CT findings of cirrhosis and portal hypertension including splenomegaly and significant esophageal varices. Subcentimeter indeterminate hypoattenuating lesions within the right kuldeep liver, too small to further characterize. Recommend comparison to the patient's prior imaging. Recommend close attention on follow-up. 4. Dysmorphic appearing right pelvic kidney. Indeterminate solid and cystic soft tissue along the upper pole, not well evaluated. Recommend comparison to any available prior examinations to assess interval change. If none available, recommend follow-up renal protocol CT or MRI for further evaluation. There is borderline right hydronephrosis. 5. Incompletely evaluated TIPS. Apparent dilatation of the main portal vein. Follow-up TIPS Doppler may be performed to assess function. 6. Indeterminate mesenteric lymphadenopathy. Recommend comparison to the patient's prior imaging to assess interval change. Recommend close attention on follow-up. Narrative: EXAM DESCRIPTION: CT ABDOMEN PELVIS W/O CONTRAST REASON FOR STUDY: c/o interment epigastric pain x 1 month- worsening in the past 4 days. HX of DM. TECHNIQUE: CT scan of the abdomen and pelvis performed without intravenous and without oral contrast using helical scanning technique. Reconstructed coronal and sagittal MPR images reviewed. All images stored on PACS. Automated exposure control was used as a dose optimization technique for this examination. COMPARISON: Correlation is made to ultrasound dated 02/26/2023 REFERENCE: Per ACR white paper recommendations, unless otherwise specified no follow-up imaging is recommended for incidental renal and adrenal lesions per consensus recommendations based on imaging criteria. Further lab evaluation could be pursued based on clinical findings. FINDINGS: The sensitivity for detection of visceral lesions is diminished without the use of intravenous contrast. LOWER CHEST: No significant pulmonary abnormalities. No effusion. LIVER: The liver is normal in size. Widening of the periportal spaces with undulating surface likely reflects chronic underlying cirrhosis. There is subcentimeter hypoattenuating lesions within the right kuldeep liver which are too small to further characterize by CT for reference is an 8 mm lesion within segment 7 (41). And a 6 mm lesion within segment 5 (69). GALLBLADDER: Distended. Cholelithiasis is noted within the neck. Motion partially obscures the gallbladder with no definite pericholecystic stranding to suggest acute cholecystitis. BILE DUCTS: No gross biliary ductal dilatation. SPLEEN: Enlarged measuring 19 cm craniocaudal. PANCREAS: The pancreas is normal in size. Possible trace peripancreatic stranding at the level of the uncinate. There is otherwise no significant stranding. No main ductal dilatation. No peripancreatic fluid collection. ADRENALS: Thickening of a pancake right adrenal. The left adrenal gland appears mildly thickened as well. KIDNEYS/URINARY TRACT: Dysmorphic appearing right pelvic kidney. There is an indeterminate nodular and cystic appearance of the medial upper pole right kidney spanning approximately 2.6 cm (126). There is borderline right hydronephrosis. No stone is seen. The left kidney is located within the left renal fossa. There is no hydronephrosis or stone. The urinary bladder is distended without wall thickening or evidence of obstruction. GI: There is stool throughout the colon which appears nondilated without wall thickening or evidence of obstruction. The appendix is nondilated. Esophageal varices are noted along a decompressed stomach. PERITONEUM: No free air. No ascites is seen. There are prominent indeterminate mesenteric lymph nodes within the right abdomen. For reference is a 2.0 by 0.9 cm lymph node (65). Prominent periportal lymph nodes are also noted. RETROPERITONEUM: No retroperitoneal or inguinal lymphadenopathy. REPRODUCTIVE: Prominent left seminal vesicle. Recommend close attention on follow-up. VASCULATURE: Incompletely evaluated TIPS/DIPS within the liver. There is apparent dilatation of the portal vein and splenic veins. MUSCULOSKELETAL: No significant abnormality. OTHER: No other abnormality. THIS IS AN ELECTRONICALLY VERIFIED FINAL REPORT 05/20/2023 11:49 AM - Electronically signed by Geremias Chamberlain M.D. AG: SHIELA Report ID: [id number] Reading Location: [place] [address] Labs Reviewed CMP (COMPREHENSIVE METABOLIC PANEL) - Abnormal; Notable for the following components: Result Value SODIUM 129 (*) GLUCOSE 517 (*) T BILI 2.2 (*) All other components within normal limits URINALYSIS REFLEX IF INDICATED BY ABNORMAL RESULTS - Abnormal; Notable for the following components: URINE GLUCOSE, QUAL 1000 mg/dL (*) All other components within normal limits HEMOGLOBIN A1C W/ ESTIMATED GLUCOSE - Abnormal; Notable for the following components: HGB-A1C 11.6 (*) All other components within normal limits Narrative: HEMOGLOBIN A1C: DIABETIC PATIENTS: WELL-CONTROLLED: 6.2 - 7.0 INTERMEDIATE WELL-CONTROLLED: 7.0 - 9.0 POORLY-CONTROLLED: >9.0 POCT GLUCOSE - Abnormal; Notable for the following components: GLUCOSE,BEDSIDE POCT 336 (*) All other components within normal limits CBC WITH AUTO DIFFERENTIAL - Abnormal; Notable for the following components: WBC 3.71 (*) MCV 75.0 (*) MCH 24.2 (*) PLATELET COUNT 98 (*) RDW 16.8 (*) All other components within normal limits LIPASE - Normal TROPONIN I, HIGH SENSITIVITY (HSTRP) - Normal MAGNESIUM (MG) - Normal TEST FOR ACETONE/KETONES - Normal TROPONIN I, HIGH SENSITIVITY (HSTRP) - Normal COMPLETE BLOOD COUNT (CBC) WITH DIFF Narrative: The following orders were created for panel order CBC w/ Diff. Procedure Abnormality Status --------- ------ CBC with Auto Differential[[id number]] Abnormal Final result Please view results for these tests on the individual orders. EXTRA TUBES Narrative: The following orders were created for panel order Extra Tubes. Procedure Abnormality Status --------- ------ Blue Top Tube[[id number]] Final result Gold Top Tube[[id number]] Final result Please view results for these tests on the individual orders. BLUE TOP TUBE GOLD TOP TUBE TROPONIN I, HIGH SENSITIVITY (HSTRP) Final Result CT ABDOMEN PELVIS W/O CONTRAST Final Result IMPRESSION: 1. Subtle peripancreatic stranding. This could represent pancreatitis. Recommend correlation with serum lipase. 2. Cholelithiasis without CT evidence of acute cholecystitis. 3. CT findings of cirrhosis and portal hypertension including splenomegaly and significant esophageal varices. Subcentimeter indeterminate hypoattenuating lesions within the right kuldeep liver, too small to further characterize. Recommend comparison to the patient's prior imaging. Recommend close attention on follow-up. 4. Dysmorphic appearing right pelvic kidney. Indeterminate solid and cystic soft tissue along the upper pole, not well evaluated. Recommend comparison to any available prior examinations to assess interval change. If none available, recommend follow-up renal protocol CT or MRI for further evaluation. There is borderline right hydronephrosis. 5. Incompletely evaluated TIPS. Apparent dilatation of the main portal vein. Follow-up TIPS Doppler may be performed to assess function. 6. Indeterminate mesenteric lymphadenopathy. Recommend comparison to the patient's prior imaging to assess interval change. Recommend close attention on follow-up. CBC w/ Diff Final Result CMP Final Result Lipase Final Result TROPONIN I, HIGH SENSITIVITY (HSTRP) Final Result Extra Tubes Final Result Magnesium (Mg) Final Result Acetone/Ketones Qualitative-Blood Final Result Hemoglobin A1C Final Result Urinalysis w/ Reflex Final Result EKG 12 LEAD (Results Pending) ECG Report Time:1101 Rhythm: Sinus rhythm Rate: 87 bpm Interpretation: Normal axis, normal intervals, no acute ST elevation. No prior EKGs for comparison. Medical Decision Making Amount and/or Complexity of Data Reviewed External Data Reviewed: labs and radiology. Labs: ordered. Radiology: ordered. ECG/medicine tests: ordered and independent interpretation performed. Decision- making details documented in ED Course. Clinical Impression 1. GERD (gastroesophageal reflux disease) 2. Cirrhosis of liver (HCC) 3. Hyperglycemia due to type 2 diabetes mellitus (HCC) 4. Cholelithiasis 5. Esophageal varices (HCC) Disposition: Discharge Differential diagnosis for epigastric abdominal pain includes common etiology such as pancreatitis,cholangitis, myocardial ischemia, pneumonia, abdominal hernia, dyspepsia, peptic ulcer disease, GERD, gastritis, musculoskeletal pain and less common etiology such as gastroparesis malabsorption, intestinal ischemia, or esophageal rupture. IMPRESSION: ?? 1. Subtle peripancreatic stranding. This could represent pancreatitis. Recommend correlation with serum lipase. 2. Cholelithiasis without CT evidence of acute cholecystitis. 3. CT findings of cirrhosis and portal hypertension including splenomegaly and significant esophageal varices. Subcentimeter indeterminate hypoattenuating lesions within the right kuldeep liver, too small to further characterize. Recommend comparison to the patient's prior imaging. Recommend close attention on follow-up. 4. Dysmorphic appearing right pelvic kidney. Indeterminate solid and cystic soft tissue along the upper pole, not well evaluated. Recommend comparison to any available prior examinations to assess interval change. If none available, recommend follow-up renal protocol CT or MRI for further evaluation. There is borderline right hydronephrosis. 5. Incompletely evaluated TIPS. Apparent dilatation of the main portal vein. Follow-up TIPS Doppler may be performed to assess function. 6. Indeterminate mesenteric lymphadenopathy. Recommend comparison to the patient's prior imaging to assess interval change. Recommend close attention on follow-up. Discussed with Dr. Page (collaborating physician) the patient's case, history, lab results, physical exam findings, and current evaluations. They are aware of the patient's condition, diagnostic findings. Patient was advised to follow-up with cup machine operator and GI specialist as soon as possible. Advised to return to the ED immediately with worsening symptoms. Advised he would benefit from tips Doppler. Attempted to order this through the ED but was notified by submarine cable equipment technician that it would not be a thorough test as it would just test patency. Patient with no apparent acute surgical condition at this time. I have spoken with the patient at great length and recommend to return to the ED in 12 hours for abdominal re-examination. The patient displays understanding. I have done teaching at the bedside and what to symptomatolgy to watch out for and when to return to the ED. Patient reports significant improvement of symptoms and states thathe has no pain after receiving the IV Protonix. He feels comfortable going home at this time. The patient remained stable throughout their ED stay. My clinical impression was discussed with thepatient/family. Labs and radiology results were reviewed with them. I gave them the opportunity to ask questions, and addressed them as completely as possible given the information available at present. The therapeutic plan was discussed, advised to take medications as instructed, instructions weregiven and the importance of primary care follow up was stressed and encouraged. The patient/family voiced understanding of the plan, indications to return, and the need for follow up. Cosigned by Lukas Page MD at 05/22/2023 6:00 AM GENERAL SERVICE TECHNICIAN RAL SERVICE TECHNICIAN RAL SERVICE TECHNICIAN * Danielle Duckworth RN - 05/20/2023 10:34 AM CST Pt arrives to triage with family complaining of interment epigastric pain that has been going on for over a month, but more within the past 4 days. Pt states that he was supposed to have a GI appointment this morning, but they canceled. Pt denies any pain and/or nausea or vomiting currently. Pt hasa history of diabetes, BLAND, and liver cirrhosis. RAL SERVICE TECHNICIAN documented in this encounter Plan of Treatment Not on file documented as of this encounter Procedures Procedure Name Priority Date/Time Associated Diagnosis Comments POCT GLUCOSE STAT 05/20/2023 12:52 PM GENERAL SERVICE TECHNICIAN TROPONIN I, HIGH SENSITIVITY (HSTRP) STAT 05/20/2023 12:45 PM GENERAL SERVICE TECHNICIAN CT ABDOMEN PELVIS W/O CONTRAST Stat with Interpretation 05/20/2023 11:30 AM GENERAL SERVICE TECHNICIAN EKG 12 LEAD STAT 05/20/2023 11:01 AM GENERAL SERVICE TECHNICIAN EXTRA TUBES STAT 05/20/2023 10:44 AM GENERAL SERVICE TECHNICIAN HEMOGLOBIN A1C W/ ESTIMATED GLUCOSE STAT 05/20/2023 10:44 AM GENERAL SERVICE TECHNICIAN TROPONIN I, HIGH SENSITIVITY (HSTRP) STAT 05/20/2023 10:44 AM GENERAL SERVICE TECHNICIAN GOLD TOP TUBE STAT 05/20/2023 10:44 AM GENERAL SERVICE TECHNICIAN BLUE TOP TUBE STAT 05/20/2023 10:44 AM GENERAL SERVICE TECHNICIAN CBC WITH AUTO DIFFERENTIAL STAT 05/20/2023 10:44 AM GENERAL SERVICE TECHNICIAN MAGNESIUM (MG) STAT 05/20/2023 10:44 AM GENERAL SERVICE TECHNICIAN LIPASE STAT 05/20/2023 10:44 AM GENERAL SERVICE TECHNICIAN CMP (COMPREHENSIVE METABOLIC PANEL) STAT 05/20/2023 10:44 AM GENERAL SERVICE TECHNICIAN COMPLETE BLOOD COUNT (CBC) WITH DIFF STAT 05/20/2023 10:44 AM GENERAL SERVICE TECHNICIAN TEST FOR ACETONE/KETONES STAT 05/20/2023 10:44 AM GENERAL SERVICE TECHNICIAN URINALYSIS REFLEX IF INDICATED BY ABNORMAL RESULTS STAT 05/20/2023 10:40 AM GENERAL SERVICE TECHNICIAN EKG SCAN 05/20/2023 12:00 AM GENERAL SERVICE TECHNICIAN documented in this encounter Results * (ABNORMAL) POCT Glucose (05/20/2023 12:52 PM GENERAL SERVICE TECHNICIAN) [facility] GLUCOSE,BEDSID E POCT 336(H) 70 - 99 mg/dL 05/20/2023 12:59 PM GENERAL SERVICE TECHNICIAN [facility] Comment: Patient RN Performed HOLLY SANDY Blood 05/20/2023 12:5 2 PM GENERAL SERVICE TECHNICIAN 05/20/2023 12:59 PM GENERAL SERVICE TECHNICIAN us None Provider POINT OF CARE TESTING Final Resu lt Performing Organization Address City/[facility]/ZIP Co de Phone Number [facility] [place] [address] * TROPONIN I, HIGH SENSITIVITY (HSTRP) (05/20/2023 12:45 PM GENERAL SERVICE TECHNICIAN) Only the most recent of2 resultswithin the time period is included. [facility] TROPONIN I, HIGH SENSITIVITY- [place] <3 <=35 ng/L 05/20/2023 1:33 PM GENERAL SERVICE TECHNICIAN [facility] Comment: High-sensitivity troponin I results are reported in ng/L making the result appear to be 1,000 times higher than the contemporary troponin I value which is reported in ng/ml. Results from [place]. Blood Venipuncture / Unknown 05/20/2023 12:45 PM GENERAL SERVICE TECHNICIAN 05/20/2023 1:01 PM GENERAL SERVICE TECHNICIAN us Holly Sandy COUNTY ASSESSOR, SOFT SUGAR CUTTER CHEMISTRY ORDERABLES Final Result Performing Organization Address City/[facility]/ZIP Co de Phone Number [facility] [place] [address] * CT ABDOMEN PELVIS W/O CONTRAST (05/20/2023 11:30 AM GENERAL SERVICE TECHNICIAN) Anatomical Region Laterality Modality Abdomen N/A Computed Tomogra phy 05/20/2023 11:4 9 AM GENERAL SERVICE TECHNICIAN Impressions 05/20/2023 11:52 AM GENERAL SERVICE TECHNICIAN IMPRESSION: ?? 1. ?? Subtle peripancreatic stranding. ??This could represent pancreatitis. ??Recommend correlation with serum lipase. 2. ?? Cholelithiasis without CT evidence of acute cholecystitis. 3. ?? CT findings of cirrhosis and portal hypertension including splenomegaly and significant esophageal varices. ??Subcentimeter indeterminate hypoattenuating lesions within the right kuldeep liver, too small to further characterize. ??Recommend comparison to the patient's prior imaging. ??Recommend close attention on follow-up. 4. ?? Dysmorphic appearing right pelvic kidney. ??Indeterminate solid and cystic soft tissue along the upper pole, not well evaluated. ?? Recommend comparison to any available prior examinations to assess interval change. ??If none available, recommend follow-up renal protocol CT or MRI for further evaluation. ??There is borderline right hydronephrosis. 5. ?? Incompletely evaluated TIPS. ??Apparent dilatation of the main portal vein. ??Follow-up TIPS Doppler may be performed to assess function. 6. ?? Indeterminate mesenteric lymphadenopathy. ??Recommend comparison to the patient's prior imaging to assess interval change. ??Recommend close attention on follow-up. Narrative 05/20/2023 11:52 AM GENERAL SERVICE TECHNICIAN EXAM DESCRIPTION: ?? CT ABDOMEN PELVIS W/O CONTRAST REASON FOR STUDY: ?? c/o interment epigastric pain x 1 month- worsening in the past 4 days. HX of DM. ?? TECHNIQUE: CT scan of the abdomen and pelvis performed without intravenous and ??without ??oral contrast using helical scanning technique. Reconstructed coronal and sagittal MPR images reviewed. All images stored on PACS. Automated exposure control was used as a dose optimization technique for this examination. COMPARISON: ?? Correlation is made to ultrasound dated 02/26/2023 REFERENCE: Per ACR white paper recommendations, unless otherwise specified no follow-up imaging is recommended for incidental renal and adrenal lesions per consensus recommendations based on imaging criteria. Further lab evaluation could be pursued based on clinical findings. FINDINGS: The sensitivity for detection of visceral lesions is diminished without the use of intravenous contrast. LOWER CHEST: ?? No significant pulmonary abnormalities. No effusion. LIVER: ?? The liver is normal in size. ??Widening of the periportal spaces with undulating surface likely reflects chronic underlying cirrhosis. ??There is subcentimeter hypoattenuating lesions within the right kuldeep liver which are too small to further characterize by CT for reference is an 8 mm lesion within segment 7 (41). ??And a 6 mm lesion within segment 5 (69). GALLBLADDER: ?? Distended. ??Cholelithiasis is noted within the neck. ?? Motion partially obscures the gallbladder with no definite pericholecystic stranding to suggest acute cholecystitis. BILE DUCTS: ?? No gross biliary ductal dilatation. SPLEEN: ?? Enlarged measuring 19 cm craniocaudal. PANCREAS: ?? The pancreas is normal in size. ??Possible trace peripancreatic stranding at the level of the uncinate. ??There is otherwise no significant stranding. ??No main ductal dilatation. ??No peripancreatic fluid collection. ADRENALS: ?? Thickening of a pancake right adrenal. ??The left adrenal gland appears mildly thickened as well. KIDNEYS/URINARY TRACT: ?? Dysmorphic appearing right pelvic kidney. ?? There is an indeterminate nodular and cystic appearance of the medial upper pole right kidney spanning approximately 2.6 cm (126). ?? There is borderline right hydronephrosis. ??No stone is seen. The left kidney is located within the left renal fossa. ??There is no hydronephrosis or stone. The urinary bladder is distended without wall thickening or evidence of obstruction. GI: ?? There is stool throughout the colon which appears nondilated without wall thickening or evidence of obstruction. ??The appendix is nondilated. ??Esophageal varices are noted along a decompressed stomach. PERITONEUM: ?? No free air. ??No ascites is seen. ??There are prominent indeterminate mesenteric lymph nodes within the right abdomen. ??For reference is a 2.0 by 0.9 cm lymph node (65). ??Prominent periportal lymph nodes are also noted. RETROPERITONEUM: ?? No retroperitoneal or inguinal lymphadenopathy. REPRODUCTIVE: ?? Prominent left seminal vesicle. ??Recommend close attention on follow-up. VASCULATURE: ?? Incompletely evaluated TIPS/DIPS within the liver. ?? There is apparent dilatation of the portal vein and splenic veins. MUSCULOSKELETAL: ?? No significant abnormality. OTHER: ?? No other abnormality. THIS IS AN ELECTRONICALLY VERIFIED FINAL REPORT 05/20/2023 11:49 AM - Electronically signed by ??Geremias Chamberlain M.D. AG: AG D: ??05/20/2023 11:49 AM T: ??05/20/2023 11:49 AM Report ID: [id number] Reading Location: ??[id number] Procedure Note Geremias Chamberlain MD - 05/20/2023 EXAM DESCRIPTION: CT ABDOMEN PELVIS W/O CONTRAST REASON FOR STUDY: c/o interment epigastric pain x 1 month- worsening in the past 4 days. HX of DM. TECHNIQUE: CT scan of the abdomen and pelvis performed without intravenous and without oral contrast using helical scanning technique. Reconstructed coronal and sagittal MPR images reviewed. All images stored on PACS. Automated exposure control was used as a dose optimization technique for this examination. COMPARISON: Correlation is made to ultrasound dated 02/26/2023 REFERENCE: Per ACR white paper recommendations, unless otherwise specified no follow-up imaging is recommended for incidental renal and adrenal lesions per consensus recommendations based on imaging criteria. Further lab evaluation could be pursued based on clinical findings. FINDINGS: The sensitivity for detection of visceral lesions is diminished without the use of intravenous contrast. LOWER CHEST: No significant pulmonary abnormalities. No effusion. LIVER: The liver is normal in size. Widening of the periportal spaces with undulating surface likely reflects chronic underlying cirrhosis. There is subcentimeter hypoattenuating lesions within the right kuldeep liver which are too small to further characterize by CT for reference is an 8 mm lesion within segment 7 (41). And a 6 mm lesion within segment 5 (69). GALLBLADDER: Distended. Cholelithiasis is noted within the neck. Motion partially obscures the gallbladder with no definite pericholecystic stranding to suggest acute cholecystitis. BILE DUCTS: No gross biliary ductal dilatation. SPLEEN: Enlarged measuring 19 cm craniocaudal. PANCREAS: The pancreas is normal in size. Possible trace peripancreatic stranding at the level of the uncinate. There is otherwise no significant stranding. No main ductal dilatation. No peripancreatic fluid collection. ADRENALS: Thickening of a pancake right adrenal. The left adrenal gland appears mildly thickened as well. KIDNEYS/URINARY TRACT: Dysmorphic appearing right pelvic kidney. There is an indeterminate nodular and cystic appearance of the medial upper pole right kidney spanning approximately 2.6 cm (126). There is borderline right hydronephrosis. No stone is seen. The left kidney is located within the left renal fossa. There is no hydronephrosis or stone. The urinary bladder is distended without wall thickening or evidence of obstruction. GI: There is stool throughout the colon which appears nondilated without wall thickening or evidence of obstruction. The appendix is nondilated. Esophageal varices are noted along a decompressed stomach. PERITONEUM: No free air. No ascites is seen. There are prominent indeterminate mesenteric lymph nodes within the right abdomen. For reference is a 2.0 by 0.9 cm lymph node (65). Prominent periportal lymph nodes are also noted. RETROPERITONEUM: No retroperitoneal or inguinal lymphadenopathy. REPRODUCTIVE: Prominent left seminal vesicle. Recommend close attention on follow-up. VASCULATURE: Incompletely evaluated TIPS/DIPS within the liver. There is apparent dilatation of the portal vein and splenic veins. MUSCULOSKELETAL: No significant abnormality. OTHER: No other abnormality. THIS IS AN ELECTRONICALLY VERIFIED FINAL REPORT 05/20/2023 11:49 AM - Electronically signed by Geremias Chamberlain M.D. AG: SHIELA Report ID: [id number] Reading Location: [place] [id number] IMPRESSION: 1. Subtle peripancreatic stranding. This could represent pancreatitis. Recommend correlation with serum lipase. 2. Cholelithiasis without CT evidence of acute cholecystitis. 3. CT findings of cirrhosis and portal hypertension including splenomegaly and significant esophageal varices. Subcentimeter indeterminate hypoattenuating lesions within the right kuldeep liver, too small to further characterize. Recommend comparison to the patient's prior imaging. Recommend close attention on follow-up. 4. Dysmorphic appearing right pelvic kidney. Indeterminate solid and cystic soft tissue along the upper pole, not well evaluated. Recommend comparison to any available prior examinations to assess interval change. If none available, recommend follow-up renal protocol CT or MRI for further evaluation. There is borderline right hydronephrosis. 5. Incompletely evaluated TIPS. Apparent dilatation of the main portal vein. Follow-up TIPS Doppler may be performed to assess function. 6. Indeterminate mesenteric lymphadenopathy. Recommend comparison to the patient's prior imaging to assess interval change. Recommend close attention on follow-up. Holly Sandy APRN, DOROTHY IMG CT ORDERABLES Fin al Result * EKG 12 LEAD (05/20/2023 11:01 AM GENERAL SERVICE TECHNICIAN) Ventricular Rate 87 BPM EXTERNAL EKG Atrial Rate 87 BPM EXTERNAL EKG P-R Interval 170 ms EXTERNAL EKG QRS Duration 82 ms EXTERNAL EKG Q-T Duration 370 ms EXTERNAL EKG QTC CALCULATION 445 ms EXTERNAL EKG P [place] 52 degrees EXTERNAL EKG R [place] 41 degrees EXTERNAL EKG T [place] 40 degrees EXTERNAL EKG 05/20/2023 11:0 1 AM GENERAL SERVICE TECHNICIAN Impressions EXTERNAL EKG - 05/25/2023 8:57 PM GENERAL SERVICE TECHNICIAN Normal sinus rhythm Normal ECG No previous ECGs available Confirmed by Amol Gunn ([id number]) on 05/25/2023 8:57:21 PM Narrative Procedure Note Amol Gunn MD PhD - 05/25/2023 IMPRESSION: Normal sinus rhythm Normal ECG No previous ECGs available Confirmed by Amol Gunn ([id number]) on 05/25/2023 8:57:21 PM Holly Sandy APRN, SOFT SUGAR CUTTER IMG ECG ORDERABLES nal Result EXTERNAL EKG * (ABNORMAL) Hemoglobin A1C (05/20/2023 10:44 AM GENERAL SERVICE TECHNICIAN) Pathologist [facility] HGB-A1C 11.6(H) 4.0 - 6.0 % 05/20/2023 12:30 PM GENERAL SERVICE TECHNICIAN [facility] Est Average Glucose 286.2 mg/dL 05/20/2023 12:30 PM GENERAL SERVICE TECHNICIAN [facility] Blood Venipuncture / Unknown 05/20/2023 10:44 AM GENERAL SERVICE TECHNICIAN 05/20/2023 11:01 AM GENERAL SERVICE TECHNICIAN Narrative [facility] - 05/20/2023 12:30 PM GENERAL SERVICE TECHNICIAN HEMOGLOBIN A1C: DIABETIC PATIENTS: WELL-CONTROLLED: ?? 6.2 - 7.0 INTERMEDIATE WELL-CONTROLLED: ??7.0 - 9.0 POORLY-CONTROLLED: ??>9.0 us Holly Sandy COUNTY ASSESSOR, SOFT SUGAR CUTTER CHEMISTRY ORDERABLES Final Result [facility] [place] [address] * Acetone/Ketones Qualitative-Blood (05/20/2023 10:44 AM GENERAL SERVICE TECHNICIAN) ACETONE Negative Negative 05/20/2023 12:35 PM GENERAL SERVICE TECHNICIAN [facility] Blood No Phlebotomy Charged / Unknown 05/20/2023 10:44 AM GENERAL SERVICE TECHNICIAN 05/20/2023 11:03 AM GENERAL SERVICE TECHNICIAN us Holly Sandy COUNTY ASSESSOR, SOFT SUGAR CUTTER CHEMISTRY ORDERABLES Final Result Performing Organization Address City/[facility] Co de Phone Number [facility] [place] [address] * Magnesium (Mg) (05/20/2023 10:44 AM GENERAL SERVICE TECHNICIAN) MAGNESIUM 1.8 1.6 - 2.6 mg/dL 05/20/2023 12:32 PM GENERAL SERVICE TECHNICIAN [facility] Blood Venipuncture / Unknown 05/20/2023 10:44 AM GENERAL SERVICE TECHNICIAN 05/20/2023 11:01 AM GENERAL SERVICE TECHNICIAN us Holly Sandy COUNTY ASSESSOR, SOFT SUGAR CUTTER CHEMISTRY ORDERABLES Final Result Performing Organization Address City/[facility]/ZIP Co de Phone Number [facility] [address] [place] [address] * Gold Top Tube (05/20/2023 10:44 AM GENERAL SERVICE TECHNICIAN) Blood No Phlebotomy Charged / Unknown 05/20/2023 10:44 AM GENERAL SERVICE TECHNICIAN 05/20/2023 11:03 AM GENERAL SERVICE TECHNICIAN us Holly Sandy APRN, DOROTHY CHEMISTRY ORDERABLES Final Result Performing Organization Address [facility] Co de Phone Number [facility] [place] [address] * Blue Top Tube (05/20/2023 10:44 AM GENERAL SERVICE TECHNICIAN) Blood No Phlebotomy Charged / Unknown 05/20/2023 10:44 AM GENERAL SERVICE TECHNICIAN 05/20/2023 11:03 AM GENERAL SERVICE TECHNICIAN us Holly Sandy APRN, SOFT SUGAR CUTTER HEMATOLOGY ORDERABLES Final Result Performing Organization Address [facility] de Phone Number [facility] [place] [address] * (ABNORMAL) CBC with Auto Differential (05/20/2023 10:44 AM GENERAL SERVICE TECHNICIAN) WBC 3.71(L) 4.00 - 12.00 10(3)/mcL 05/20/2023 11:44 AM GENERAL SERVICE TECHNICIAN [facility] RBC 5.79 4.40 - 5.80 10(6)/mcL 05/20/2023 11:44 AM GENERAL SERVICE TECHNICIAN [facility] HEMOGLOBIN (HGB) 14.0 13.0 - 16.5 g/dL 05/20/2023 11:44 AM GENERAL SERVICE TECHNICIAN [facility] HEMATOCRIT (HCT) 43.4 38.0 - 50.0 % 05/20/2023 11:44 AM GENERAL SERVICE TECHNICIAN [facility] MCV 75.0(L) 82.0 - 96.0 fL 05/20/2023 11:44 AM GENERAL SERVICE TECHNICIAN [facility] MCH 24.2(L) 26.0 - 32.0 pg 05/20/2023 11:44 AM GENERAL SERVICE TECHNICIAN [facility] MCHC 32.3 31.0 - 36.0 g/dL 05/20/2023 11:44 AM GENERAL SERVICE TECHNICIAN [facility] PLATELET COUNT 98(L) 140 - 440 10(3)/mcL 05/20/2023 11:44 AM GENERAL SERVICE TECHNICIAN [facility] RDW 16.8(H) 11.8 - 15.5 % 05/20/2023 11:44 AM GENERAL SERVICE TECHNICIAN [facility] MPV 10.4 8.0 - 12.6 fL 05/20/2023 11:44 AM GENERAL SERVICE TECHNICIAN [facility] NRBC PER 100 WBC 0 05/20/2023 11:44 AM GENERAL SERVICE TECHNICIAN [facility] Blood Venipuncture / Unknown 05/20/2023 10:44 AM GENERAL SERVICE TECHNICIAN 05/20/2023 11:01 AM GENERAL SERVICE TECHNICIAN us Holly Sandy APRN, SOFT SUGAR CUTTER HEMATOLOGY ORDERABLES Final Result Performing Organization Address City/[facility]/ZIP Co de Phone Number [facility] [place] [address] * Lipase (05/20/2023 10:44 AM GENERAL SERVICE TECHNICIAN) LIPASE 44 8 - 78 U/L 05/20/2023 11:28 AM GENERAL SERVICE TECHNICIAN [facility] Blood Venipuncture / Unknown 05/20/2023 10:44 AM GENERAL SERVICE TECHNICIAN 05/20/2023 11:01 AM GENERAL SERVICE TECHNICIAN us Holly Sandy COUNTY ASSESSOR, SOFT SUGAR CUTTER CHEMISTRY ORDERABLES Final Result [facility] [place] [address] * (ABNORMAL) CMP (05/20/2023 10:44 AM GENERAL SERVICE TECHNICIAN) SODIUM 129(L) 136 - 145 mmol/L 05/20/2023 11:33 AM GENERAL SERVICE TECHNICIAN [facility] POTASSIUM 4.2 3.5 - 5.1 mmol/L 05/20/2023 11:33 AM [facility] CHLORIDE 98 98 - 107 mmol/L 05/20/2023 11:33 AM [facility] CO2, VENOUS 23 22 - 30 mmol/L 05/20/2023 11:33 AM [facility] ANION GAP 12.2 <18.0 mmol/L 05/20/2023 11:33 AM [facility] GLUCOSE 517(HH) 70 - 99 mg/dL 05/20/2023 11:33 AM [facility] [facility] BUN 13 8 - 26 mg/dL 05/20/2023 11:33 AM [facility] CREATININE, BLOOD 0.92 0.70 - 1.30 mg/dL 05/20/2023 11:33 AM [facility] BUN/CREATININE RATIO 14 12 - 20 ratio 05/20/2023 11:33 AM [facility] TOTAL PROTEIN 6.7 6.3 - 8.2 g/dL 05/20/2023 11:33 AM [facility] ALBUMIN 3.5 3.5 - 5.0 g/dL 05/20/2023 11:33 AM [facility] A/G RATIO 1.1 1.0 - 2.2 05/20/2023 11:33 AM [facility] CALCIUM 9.3 8.7 - 10.5 mg/dL 05/20/2023 11:33 AM [facility] T BILI 2.2(H) 0.2 - 1.2 mg/dL 05/20/2023 11:33 AM [facility] SGOT (AST) 26 5 - 34 U/L 05/20/2023 11:33 AM [facility] SGPT (ALT) 20 0 - 55 U/L 05/20/2023 11:33 AM [facility] ALKALINE PHOSPHATASE 89 40 - 150 U/L 05/20/2023 11:33 AM [facility] GFR, ESTIMATED >60 >=60 05/20/2023 11:33 AM [facility] Comment: Creatinine Clearance is the preferred criteria for selecting drug dose adjustments in renally impaired patients. ??The GFR is provided as additional pertinent clinical information. GFR is reported in mL/min/1.73 sq m. Calculation based on the Chronic Kidney Disease Epidemiology Collaboration (CKD- EPI) equation refit without adjustment for race. GFR, EST. >60 >=60 024 11:33 AM GENERAL SERVICE TECHNICIAN [facility] GFR, EST. NONAFRICAN >60 >=60 05/20/2023 11:33 AM GENERAL SERVICE TECHNICIAN [facility] Blood Venipuncture / Unknown 05/20/2023 10:44 AM GENERAL SERVICE TECHNICIAN 05/20/2023 11:01 AM GENERAL SERVICE TECHNICIAN Holly Sandy COUNTY ASSESSOR, SOFT SUGAR CUTTER CHEMISTRY ORDERABLES Final Result [facility] [address] [place] [address] * (ABNORMAL) Urinalysis w/ Reflex (05/20/2023 10:40 AM GENERAL SERVICE TECHNICIAN) SPECIFIC GRAVITY 1.010 1.003 - 1.030 05/20/2023 11:44 AM GENERAL SERVICE TECHNICIAN [facility] URINE PH 5.0 5.0 - 9.0 05/20/2023 11:44 AM [facility] WBC ESTERASE Negative Negative 05/20/2023 11:44 AM GENERAL SERVICE TECHNICIAN [facility] NITRITE Negative Negative 05/20/2023 11:44 AM GENERAL SERVICE TECHNICIAN [facility] PROTEIN, RANDOM URINE Negative Negative 05/20/2023 11:44 AM GENERAL SERVICE TECHNICIAN [facility] URINE GLUCOSE, QUAL 1000 mg/dL(A) Negative 05/20/2023 11:44 AM [facility] URINE KETONES Negative Negative 05/20/2023 11:44 AM [facility] UROBILINOGEN Normal Normal mg/dL 05/20/2023 11:44 AM GENERAL SERVICE TECHNICIAN [facility] URINE BLOOD Negative Negative kristan/ul 05/20/2023 11:44 AM GENERAL SERVICE TECHNICIAN [facility] URINALYSIS COLOR Yellow 05/20/19 11:44 AM GENERAL SERVICE TECHNICIAN [facility] URINALYSIS CLARITY Clear 05/20/2023 11:44 AM GENERAL SERVICE TECHNICIAN [facility] Urine URINE SPECIMEN / Unknown Non-Phlebotomy Collection / Unknown 05/20/2023 10:40 AM GENERAL SERVICE TECHNICIAN 05/20/2023 11:03 AM GENERAL SERVICE TECHNICIAN us Holly Sandy COUNTY ASSESSOR, SOFT SUGAR CUTTER URINE ORDERABLES Anastasiya l Result [facility] [address] [place] [address] * EKG SCAN (05/20/2023 12:00 AM GENERAL SERVICE TECHNICIAN) 05/20/2023 us Provider Scan IMG ECG ORDERABLES Final Result [facility]ULT[facility]Y documented in this encounter Visit Diagnoses Diagnosis GERD (gastroesophageal reflux disease)- Primary Esophageal reflux Cirrhosis of liver (HCC) Cirrhosis of liver without mention of alcohol Hyperglycemia due to type 2 diabetes mellitus (HCC) Cholelithiasis Calculus of gallbladder without mention of cholecystitis or obstruction Esophageal varices (HCC) Esophageal varices without mention of bleeding documented in this encounter Administered Medications Inactive Administered Medications - up to 3 most recent administrations Medication Order MAR Action Action Date Dose Rate Site 0.9 % sodium chloride solution at 999 mL/hr, Intravenous, ONCE, 1 dose, On Thu05/20/23 at 1130 New Bag 05/20/2023 11:06 AM GENERAL SERVICE TECHNICIAN 1,000 mL 999 mL/hr dextrose 50 % solution 12.5 g 12.5 g, Intravenous, PRN, Starting on Thu05/20/23 at 1156, Until Thu05/20/23 at 1742, Low blood sugar, If IV patent in patient with blood glucose of 50 or less, or Unconscious, Conscious but NPO or Unable to Swallow regardless of blood glucose, administer 1 dose of dextrose 50% solution. fentaNYL (PF) (SUBLIMAZE) injection 75 mcg 75 mcg, Intravenous, ONCE, 1 dose, On Thu05/20/23 at 1400 Given 05/20/2023 2:05 PM GENERAL SERVICE TECHNICIAN 75 mcg Glucagon Emergency injection KIT 1 mg 1 mg, Intramuscular, PRN, Starting on Thu05/20/23 at 1156, Until Thu05/20/23 at 1742, If patient has no intravenous access and blood glucose of 50 or less, or Unconscious, Conscious but NPO or Unable to Swallow regardless of blood glucose administer 1 dose of glucagon. Glucagon may cause vomiting. Position patient on the side., Other, Low blood sugar Glucagon Emergency injection KIT 1 mg 1 mg, Subcutaneous, PRN, Starting on Thu05/20/23 at 1156, Until Thu05/20/23 at 1742, If patient has no intravenous access and blood glucose of 50 or less, or Unconscious, Conscious but NPO or Unable to Swallow regardless of blood glucose administer 1 dose of glucagon. Glucagon may cause vomiting. Position patient on the side., Other, Low blood sugar glucose (GLUTOSE) 40 % gel GEL 15 g 15 g, Oral, PRN, Starting on Thu05/20/23 at 1156, Until Thu05/20/23 at 1742, Low blood sugar, Dose is based on glucose. 37.5 g tube = 15 GRAMS of GLUCOSE. For 15 GRAM GLUCOSE dose, give entire 37.5 g size tube. Administer 1 dose if patient is unable to take food, but conscious and able to swallow. insulin regular (HumuLIN R;NovoLIN R) 9.5 Units in insulin syringe 9.5 Units (rounded from 9.58 Units = 0.1 Units/kg ? 95.8 kg), Intravenous, ONCE, 1 dose, On Thu05/20/23 at 1230, 1) Verify that K+ is greater than or equal to 3.3 meq/L prior to administration. 2) Begin insulin infusion within 30 min of IV bolus. Draw insulin up using the luer tip insulin syringe. Do not dilute. Administer insulin at the port closest to the IV insertion site to decrease risk of insulin binding to the lumen of the tubing. Disconnect tubing if necessary to access port closest to insertion site. Flush with 10 mL Saline after administration. Given 05/20/2023 12:08 PM GENERAL SERVICE TECHNICIAN 9.5 Units metoclopramide (REGLAN) injection 10 mg 10 mg, Intravenous, ONCE, 1 dose, On Thu05/20/23 at 1400 Given 05/20/2023 2:05 PM GENERAL SERVICE TECHNICIAN 10 mg morphine sulfate (PF) injection 4 mg 4 mg, Intravenous, ONCE, 1 dose, On Thu05/20/23 at 1130 Given 05/20/2023 11:06 AM GENERAL SERVICE TECHNICIAN 4 mg ondansetron (ZOFRAN) injection 4 mg 4 mg, Intravenous, ONCE, 1 dose, On Thu05/20/23 at 1130 Given 05/20/2023 11:06 AM GENERAL SERVICE TECHNICIAN 4 mg pantoprazole (PROTONIX) injection 40 mg 40 mg, Intravenous, ONCE, 1 dose, On Thu05/20/23 at 1400, Administer over 3 Minutes, Indications: Symptomatic Gastroesophageal Reflux DiseaseIndications:Symptomatic Gastroesophageal Reflux Disease Given 05/20/2023 2:05 PM GENERAL SERVICE TECHNICIAN 40 mg documented in this encounter Active and Recently Administered Medications Times are shown in GENERAL SERVICE TECHNICIAN. Scheduled Medication Order 05/18/2023 05/19/2023 05/20/2023 0.9 % sodium chloride solution (COMPLETED) at 999 mL/hr, Intravenous, ONCE, 1 dose, On Thu05/20/23 at 1130 1106 (New Bag - Prov ider: Abigail Amaro RN)1406 (Stopped - Provider: Lelia Alicea RN) fentaNYL (PF) (SUBLIMAZE) injection 75 mcg (COMPLETED) 75 mcg, Intravenous, ONCE, 1 dose, On Thu05/20/23 at 1400 1405 (Given - Provid er: Lelia Alicea RN) insulin regular (HumuLIN R;NovoLIN R) 9.5 Units in insulin syringe (COMPLETED) 9.5 Units (rounded from 9.58 Units = 0.1 Units/kg ? 95.8 kg), Intravenous, ONCE, 1 dose, On Thu05/20/23 at 1230, 1) Verify that K+ is greater than or equal to 3.3 meq/L prior to administration. 2) Begin insulin infusion within 30 min of IV bolus. Draw insulin up using the luer tip insulin syringe. Do not dilute. Administer insulin at the port closest to the IV insertion site to decrease risk of insulin binding to the lumen of the tubing. Disconnect tubing if necessary to access port closest to insertion site. Flush with 10 mL Saline after administration. 1208 (Given - Provid er: Antionette Brock RN) metoclopramide (REGLAN) injection 10 mg (COMPLETED) 10 mg, Intravenous, ONCE, 1 dose, On Thu05/20/23 at 1400 1405 (Given - Provid er: Lelia Alicea RN) morphine sulfate (PF) injection 4 mg (COMPLETED) 4 mg, Intravenous, ONCE, 1 dose, On Thu05/20/23 at 1130 1106 (Given - Provid er: Abigail Amaro RN) ondansetron (ZOFRAN) injection 4 mg (COMPLETED) 4 mg, Intravenous, ONCE, 1 dose, On Thu05/20/23 at 1130 1106 (Given - Provid er: Abigail Amaro RN) pantoprazole (PROTONIX) injection 40 mg (COMPLETED) 40 mg, Intravenous, ONCE, 1 dose, On Thu05/20/23 at 1400, Administer over 3 Minutes, Indications: Symptomatic Gastroesophageal Reflux Disease 1405 (Given - Provid er: Lelia Alicea RN) PRN Medication Order 05/18/2023 05/19/2023 05/20/2023 dextrose 50 % solution 12.5 g(Linked Group 1) 12.5 g, Intravenous, PRN, Starting on Thu05/20/23 at 1156, Until Thu05/20/23 at 1742, Low blood sugar, If IV patent in patient with blood glucose of 50 or less, or Unconscious, Conscious but NPO or Unable to Swallow regardless of blood glucose, administer 1 dose of dextrose 50% solution. Glucagon Emergency injection KIT 1 mg(Linked Group 1) 1 mg, Intramuscular, PRN, Starting on Thu05/20/23 at 1156, Until Thu05/20/23 at 1742, If patient has no intravenous access and blood glucose of 50 or less, or Unconscious, Conscious but NPO or Unable to Swallow regardless of blood glucose administer 1 dose of glucagon. Glucagon may cause vomiting. Position patient on the side., Other, Low blood sugar Glucagon Emergency injection KIT 1 mg(Linked Group 1) 1 mg, Subcutaneous, PRN, Starting on Thu05/20/23 at 1156, Until Thu05/20/23 at 1742, If patient has no intravenous access and blood glucose of 50 or less, or Unconscious, Conscious but NPO or Unable to Swallow regardless of blood glucose administer 1 dose of glucagon. Glucagon may cause vomiting. Position patient on the side., Other, Low blood sugar glucose (GLUTOSE) 40 % gel GEL 15 g(Linked Group 1) 15 g, Oral, PRN, Starting on Thu05/20/23 at 1156, Until Thu05/20/23 at 1742, Low blood sugar, Dose is based on glucose. 37.5 g tube = 15 GRAMS of GLUCOSE. For 15 GRAM GLUCOSE dose, give entire 37.5 g size tube. Administer 1 dose if patient is unable to take food, but conscious and able to swallow. Linked Groups Order Group 1: glucose (GLUTOSE) 40 % gel GEL 15 gJump to med 15 g, Oral, PRN, Starting on Thu05/20/23 at 1156, Until Thu05/20/23 at 1742, Low blood sugar, Dose is based on glucose. 37.5 g tube = 15 GRAMS of GLUCOSE. For 15 GRAM GLUCOSE dose, give entire 37.5 g size tube. Administer 1 dose if patient is unable to take food, but conscious and able to swallow. Or dextrose 50 % solution 12.5 gJump to med 12.5 g, Intravenous, PRN, Starting on Thu05/20/23 at 1156, Until Thu05/20/23 at 1742, Low blood sugar, If IV patent in patient with blood glucose of 50 or less, or Unconscious, Conscious but NPO or Unable to Swallow regardless of blood glucose, administer 1 dose of dextrose 50% solution. Or Glucagon Emergency injection KIT 1 mgJump to med 1 mg, Intramuscular, PRN, Starting on Thu05/20/23 at 1156, Until Thu05/20/23 at 1742, If patient has no intravenous access and blood glucose of 50 or less, or Unconscious, Conscious but NPO or Unable to Swallow regardless of blood glucose administer 1 dose of glucagon. Glucagon may cause vomiting. Position patient on the side., Other, Low blood sugar Or Glucagon Emergency injection KIT 1 mgJump to med 1 mg, Subcutaneous, PRN, Starting on Thu05/20/23 at 1156, Until Thu05/20/23 at 1742, If patient has no intravenous access and blood glucose of 50 or less, or Unconscious, Conscious but NPO or Unable to Swallow regardless of blood glucose administer 1 dose of glucagon. Glucagon may cause vomiting. Position patient on the side., Other, Low blood sugar documented in this encounter Care Teams Mechanical Developer Prover Relationship Specialty Start Date End Date Braydon Pavon, [address] [place] [address] PCP - General Physician Federal Law Clerk 06/22/18 Riddhi Bello APRN, SOFT SUGAR CUTTER [address] [place] [address] Nurse Practitioner Advanced Practice Nurse 02/10/23 documented as of this encounter
--- OUTSIDE RECORDS SUMMARY | 2024-04-19 23:02 | XMS_ITS | Encounter Summary ---
Author Organization [facility] Address [address] [place] [address] Phone Care Team Providers Care Boiler Shop Supervisor Name Role Phone Braydon Pavon Primary Care Provider [phone] Vikram Mora MD Unavailable Riddhi Bello APRN, CNP Unavailable Reason for Visit * Reason Onset Date Comments Medication Refill 08/13/2023 Encounter Details Date Type Department Care Team (Late st Contact Info) Description 08/13/2023 MyChart RX Renewal [facility] - Endocrinology - [place] [address] [place] [address] Vikram Mora MD [address] [address] Medication Renewal Reviewed Social History Tobacco Use Types Packs/Day Years Used Date Smoking Tobacco: Former Cigarettes Q uit: 2002 Smokeless Tobacco: Never Alcohol Use Standard Drinks/Week Comments Not Currently 0 (1 standard drink = 0.6 oz pur e alcohol) Sexually Active Control Partners Comments Yes Female Sex and Gender Information Value Date Recorded Sex Assigned at Not on file 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 Gender Identity Not on file Sexual Orientation Not on file documented as of this encounter Plan of Treatment Not on file documented as of this encounter Visit Diagnoses Not on filedocumented in this encounter Care Teams Boiler Shop Supervisor Relationship Specialty Start Date End Date Braydon Pavon PAC [address] [place] [address] PCP - General Physician Specialty Food Products Supervisor 06/22/18 Vikram Mora MD [address] [phone] Consulting Physician Endocrinology 05/21/23 Riddhi Bello APRN, ACCOUNTING CLERKS SUPERVISOR [address] [place] [address] Nurse Practitioner Advanced Practice Nurse 02/10/23 documented as of this encounter
--- OUTSIDE RECORDS SUMMARY | 2024-04-19 23:02 | XMS_ITS | Encounter Summary ---
Author Organization [employer] Care Team Providers Care Procurement Clerk Name Role Phone Braydon Pavon Primary Care Provider [phone] Vikram Mora MD Unavailable Riddhi Bello APRN, CLINICAL PSYCHOLOGIST Unavailable Encounter Details Date Type Department Care Team (Latest Contact Info) Description 09/29/2023 Travel Social History Tobacco Use Types Packs/Day Years Used Date Smoking Tobacco: Former Cigarettes Q uit: 2002 Smokeless Tobacco: Never Alcohol Use Standard Drinks/Week Comments Not Currently 0 (1 standard drink = 0.6 oz pur e alcohol) Sexually Active Control Partners Comments Yes Female Sex and Gender Information Value Date Recorded Sex Assigned at Not on file 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 Gender Identity Not on file Sexual Orientation Not on file documented as of this encounter Plan of Treatment Not on file documented as of this encounter Visit Diagnoses Not on filedocumented in this encounter Care Teams Procurement Clerk Relationship Specialty Start Date End Date Braydon Pavon PAC [address] [place] [id number] PCP - General Physician Card Grinder 06/22/18 Vikram Mora MD [address] [phone] Consulting Physician Endocrinology 05/21/23 Riddhi Bello APRN, CLINICAL PSYCHOLOGIST [address] [place] [address] Nurse Practitioner Advanced Practice Nurse 02/10/23 documented as of this encounter
--- OUTSIDE RECORDS SUMMARY | 2024-04-19 23:02 | XMS_ITS | Encounter Summary ---
Author Organization [employer] Care Team Providers Care Berry Picker Name Role Phone Braydon Pavon Primary Care Provider [phone] Riddhi Bello APRN, LEAD BASED PAINT TECHNICIAN Unavailable Encounter Details Date Type Department Care Team (Latest Contact Info) Description 03/24/2023 Travel Social History Tobacco Use Types Packs/Day Years Used Date Smoking Tobacco: Former Cigarettes Q uit: 2002 Smokeless Tobacco: Never Alcohol Use Standard Drinks/Week Comments Not Currently 0 (1 standard drink = 0.6 oz pur e alcohol) Sexually Active Control Partners Comments Yes Female Sex and Gender Information Value Date Recorded Sex Assigned at Not on file 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
--- OUTSIDE RECORDS SUMMARY | 2024-04-19 23:02 | XMS_ITS | Encounter Summary ---
Author Organization [employer] Care Team Providers Care Excellence Specialist Name Role Phone Braydon Pavon Primary Care Provider [phone] Riddhi Bello APRN, HAND SIZER Unavailable Encounter Details Date Type Department Care Team (Latest Contact Info) Description 02/27/2023 Travel Social History Tobacco Use Types Packs/Day Years Used Date Smoking Tobacco: Former Cigarettes Q uit: 2002 Smokeless Tobacco: Never Alcohol Use Standard Drinks/Week Comments Not Currently 0 (1 standard drink = 0.6 oz pur e alcohol) Sexually Active Control Partners Comments Yes Female Sex and Gender Information Value Date Recorded Sex Assigned at Not on file 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
--- OUTSIDE RECORDS SUMMARY | 2024-04-19 23:02 | XMS_ITS | Encounter Summary ---
Author Organization [facility] Address [address] [place] [address] Phone Care Team Providers Care Quality Control Assessor Name Role Phone Braydon Pavon Kunal NEAL Primary Care Provider [phone] Vikram Mora MD Unavailable Riddhi Bello APRN, CNP Unavailable Reason for Visit * Reason Comments Medication Refill Encounter Details Date Type Department Care Team (Late st Contact Info) Description 02/01/2024 Refill [facility] - Endocrinology - [place] [address] [place] [address] Vikram Mora MD [address] [address] Medication Refill Social History Tobacco Use Types Packs/Day Years Used Date Smoking Tobacco: Former Cigarettes Q uit: 2002 Smokeless Tobacco: Never Alcohol Use Standard Drinks/Week Comments Not Currently 0 (1 standard drink = 0.6 oz pur e alcohol) Sexually Active Control Partners Comments Yes Female Sex and Gender Information Value Date Recorded Sex Assigned at Not on file Legal Sex Male 10:58 AM IRON 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 documented in this encounter Plan of Treatment Not on file documented as of this encounter Visit Diagnoses Not on filedocumented in this encounter Care Teams Quality Control Assessor Relationship Specialty Start Date End Date Braydon Pavon, [facility] [address] [place] [address] PCP - General Physician Generation Technologist 06/22/18 Vikram Mora MD [address] [phone] Consulting Physician Endocrinology 05/21/23 Riddhi Bello APRN, CAR SEAT MAKER [address] [place] [address] Nurse Practitioner Advanced Practice Nurse 02/10/23 documented as of this encounter
--- OUTSIDE RECORDS SUMMARY | 2024-04-19 23:02 | XMS_ITS | Encounter Summary ---
Author Organization [facility] Address [address] [place] [address] Phone Care Team Providers Care Cut Press Operator Name Role Phone Braydon Pavon Kunal NEAL Primary Care Provider [phone] Vikram Mora MD Unavailable Riddhi Bello APRN, CNP Unavailable Reason for Visit * Reason Onset Date Comments Results 08/04/2023 Encounter Details Date Type Department Care Team (Late st Contact Info) Description 08/04/2023 Telephone [facility] - Gastroenterology - [place] [address] [place] [address] Riddhi Bello APRN, INSURANCE CHECKER [address] [place] [address] Results Social History Tobacco Use Types Packs/Day Years Used Date Smoking Tobacco: Former Cigarettes Q uit: 2002 Smokeless Tobacco: Never Alcohol Use Standard Drinks/Week Comments Not Currently 0 (1 standard drink = 0.6 oz pur e alcohol) Sexually Active Control Partners Comments Yes Female Sex and Gender Information Value Date Recorded Sex Assigned at Not on file 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 * Telephone Encounter - Riddhi Bello APRN, CNP - 08/25/2023 3:42 PM CDT TIPS ultrasound report reviewed. Have him followed up with the liver specialist. * Telephone Encounter - Brianna Sorenson RN - 08/04/2023 1:11 PM CDT Patient called office due to concern of TIPS doppler. Patient did see hepatology at [facility] on 07/14/2023. Dr. Bedolla is who he saw. He had the TIPS doppler on 07/24/2023. Patient is concerned about the TIPS back flowing. Patient stated that Dr. Bedolla reviewed with patient that if his he could get better control of his diabetes he could be placed on the liver transplant list. Advised patient provider is out of office until 08/24/2023. Encouraged patient to contact Dr. Botello to report concerns. Patient verbalized understanding. TIPS doppler report noted to be in care everywhere on 07/24/2023. documented in this encounter Plan of Treatment Not on file documented as of this encounter Visit Diagnoses Not on filedocumented in this encounter Care Teams Cut Press Operator Relationship Specialty Start Date End Date Braydon Pavon PAC [address] [place] [id number] PCP - General Physician Public Information Officer 06/22/18 Vikram Mora MD [address] [phone] Consulting Physician Endocrinology 05/21/23 Riddhi Bello APRN, INSURANCE CHECKER [address] [place] [address] Nurse Practitioner Advanced Practice Nurse 02/10/23 documented as of this encounter
--- OUTSIDE RECORDS SUMMARY | 2024-04-19 23:02 | XMS_ITS | Encounter Summary ---
Author Organization [employer] Care Team Providers Care Medical Office Worker Name Role Phone Braydon Pavon Primary Care Provider [phone] Vikram Mora MD Unavailable Riddhi Bello APRN, CAUSTIC MIXER Unavailable Encounter Details Date Type Department Care Team (Latest Contact Info) Description 06/01/2023 Travel Social History Tobacco Use Types Packs/Day Years Used Date Smoking Tobacco: Former Cigarettes Q uit: 2002 Smokeless Tobacco: Never Alcohol Use Standard Drinks/Week Comments Not Currently 0 (1 standard drink = 0.6 oz pur e alcohol) Sexually Active Control Partners Comments Yes Female Sex and Gender Information Value Date Recorded Sex Assigned at Not on file 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 Gender Identity Not on file Sexual Orientation Not on file documented as of this encounter Plan of Treatment Not on file documented as of this encounter Visit Diagnoses Not on filedocumented in this encounter Care Teams Medical Office Worker Relationship Specialty Start Date End Date Braydon Pavon PAC [address] [place] [address] PCP - General Physician Labor Supervisor 06/22/18 Vikram Mora MD [address] [phone] Consulting Physician Endocrinology 05/21/23 Riddhi Bello APRN, CAUSTIC MIXER [address] [place] [address] Nurse Practitioner Advanced Practice Nurse 02/10/23 documented as of this encounter
--- OUTSIDE RECORDS SUMMARY | 2024-04-19 23:02 | XMS_ITS | Encounter Summary ---
Author Organization [facility] Address [address] [place] [address] Phone Care Team Providers Care Manager Tax Name Role Phone Librado Braydon NEAL Primary Care Provider [phone] Vikram Mora MD Unavailable Riddhi Bello APRN, SHORT FILLER BUNCH MACHINE OPERATOR Unavailable Reason for Referral * Radiology Services (Routine) - Closed Specialty Diagnoses / Procedures Referred By Jordan casillas Referred To Contact Radiology Diagnoses Constipation, unspecified constipation type Procedures XR ABDOMEN KUB FLAT PLATE Riddhi Bello APRN, SHORT FILLER BUNCH MACHINE OPERATOR [address] [place] [address] Phone: tel: fax: Referral ID Status Reason Start Date Expiration Date Visits Re quested Visits Authorized [id number] Closed 01/05/2024 1 1 Reason for Visit * Reason Onset Date Comments Appointment 01/05/2024 Constipation 01/05/2024 Encounter Details Date Type Department Care Team (Late st Contact Info) Description 01/05/2024 Telephone [facility] - [facility]astroenterology [place] [address] [place] [id number] Riddhi Bello APRN, SHORT FILLER BUNCH MACHINE OPERATOR [address] [place] [address] Appointment; Constipation Social History Tobacco Use Types Packs/Day Years Used Date Smoking Tobacco: Former Cigarettes Q uit: 2002 Smokeless Tobacco: Never Alcohol Use Standard Drinks/Week Comments Not Currently 0 (1 standard drink = 0.6 oz pur e alcohol) Sexually Active Control Partners Comments Yes Female Sex and Gender Information Value Date Recorded Sex Assigned at Not on file 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 Spoke with Analisa Bello NP, patient can get KUB on 01/07/2024, possibly if he could do it prior to his appt, if not he can get it done afterwards. He is to continue the mirilax 17 gm po bid and lactulose as directed. Reviewed all information with patient. KUB order placed. Advised patient to call back for any new or worsening of symptoms. Patient is aware and verbalizes understanding. * Telephone Encounter - Riddhi Bello APRN, CNP - 01/05/2024 2:27 PM CDT Would he be able to come in to the hospital and get a KUB tomorrow * Telephone Encounter - Blake Sorenson RN - 01/05/2024 1:11 PM CDT Patient self-scheduled for appt on 01/07/2024 per Analisa Bello [employer], referral placed to external hepatology on 06/09/2023. Per chart review, patient had office visit with Dr. Wilson on 12/29/2023. Spoke with patient, states he saw liver specialist, and was advised to follow up with GI provider. Reviewed with Analisa Bello [employer]. Patient reports that he has been having nausea, stomach aching and vomiting in the morning. He reports that he has been throwing up mucous. States that has been having constipation, will have a 3-4 bm's a day. Is taking lactulose 30 ml's TID to QID. . He did take mag cit rate a few days ago. Last bm was on 01/04/2024. Noted to have 1-2 bm's on 01/04/2024. described as small. He is going to start taking Mirilax tonight and then start taking it BID. Today he did have ahamburger and fries. Yesterday he did have chicken and pasta. Patient does take norco 10/325 mg forback pain. He is not taking omeprazole any longer. He has been taking his zofran bid due to he has been nausea. He does report fresh blood mixed with the mucous when he throws up in the morning. Denies any bloody, black or tarry stools or coffee ground emesis. His liver doctor is going to set him up for an EGD, he is going to MRI were he will be sedated. He hoping to get a nerve block to help decrease taking the norco's. Allergies and med list reviewed. He can't remember when he had a good bm. Please advise. documented in this encounter Plan of Treatment Not on file documented as of this encounter Results * XR ABDOMEN KUB FLAT PLATE (01/07/2024 8:25 AM CDT) Anatomical Region Laterality Modality Abdomen N/A Digital Radiogra phy 01/08/2024 12:5 1 PM CDT Impressions 01/08/2024 12:53 PM CDT IMPRESSION: No acute finding. There is a large amount of stool in the right colon. Narrative 01/08/2024 12:53 PM CDT EXAM DESCRIPTION: ?? XR ABDOMEN KUB FLAT PLATE REASON FOR STUDY: ?? constipation for a few weeks,cirrhosis of liver, liver bypass surgery in 2021, RLQ pain ?? TECHNIQUE: Single ??radiographic view of the abdomen. COMPARISON: ?? 05/29/2023 FINDINGS: BOWEL: ??Nonobstructive gas pattern. ??There is a large amount of stool in the right colon. SOFT TISSUES: ??No abnormal calcifications. LINES/TUBES: ??A portosystemic shunt is seen. BONES: ??No acute osseous abnormality. THIS IS AN ELECTRONICALLY VERIFIED FINAL REPORT 01/08/2024 12:51 PM - Electronically signed by ??Kyle KEMP: VIRIDIANA D: ??01/08/2024 12:51 PM T: ??01/08/2024 12:51 PM Report ID: [id number] Reading Location: ??[id number] Procedure Note Carl Tubbs MD - 01/08/2024 EXAM DESCRIPTION: XR ABDOMEN KUB FLAT PLATE REASON FOR STUDY: constipation for a few weeks,cirrhosis of liver, liver bypass surgery in 2021, RLQ pain TECHNIQUE: Single radiographic view of the abdomen. COMPARISON: 05/29/2023 FINDINGS: BOWEL: Nonobstructive gas pattern. There is a large amount of stool in the right colon. SOFT TISSUES: No abnormal calcifications. LINES/TUBES: A portosystemic shunt is seen. BONES: No acute osseous abnormality. THIS IS AN ELECTRONICALLY VERIFIED FINAL REPORT 01/08/2024 12:51 PM - Electronically signed by Kyle KEMP: VIRIDIANA Report ID: [id number] Reading Location: [id number] IMPRESSION: No acute finding. There is a large amount of stool in the right colon. Riddhi Bello INDUSTRIAL EDUCATION TEACHER, SHORT FILLER BUNCH MACHINE OPERATOR IMG DIAGNOSTIC OR DERABLES Final Result documented in this encounter Visit Diagnoses Diagnosis Constipation, unspecified constipation type- Primary Constipation, unspecified constipation type documented in this encounter Care Teams Manager Tax Relationship Specialty Start Date End Date Braydon Pavon PAC [address] [place] [id number] PCP - General Physician Cotton Program Technician 06/22/18 Vikram Mora MD [address] [phone] Consulting Physician Endocrinology 05/21/23 Riddhi Bello APRN, SHORT FILLER BUNCH MACHINE OPERATOR [address] [place] [address] Nurse Practitioner Advanced Practice Nurse 02/10/23 documented as of this encounter
--- OUTSIDE RECORDS SUMMARY | 2024-04-19 23:02 | XMS_ITS | Encounter Summary ---
Author Organization [employer] Care Team Providers Care Web Site Administrator Name Role Phone Braydon Pavon Primary Care Provider [phone] Vikram Mora MD Unavailable Riddhi Bello APRN, FRONT DESK MONITOR Unavailable Encounter Details Date Type Department Care Team (Latest Contact Info) Description 01/07/2024 Travel Social History Tobacco Use Types Packs/Day Years Used Date Smoking Tobacco: Former Cigarettes Q uit: 2002 Smokeless Tobacco: Never Alcohol Use Standard Drinks/Week Comments Not Currently 0 (1 standard drink = 0.6 oz pur e alcohol) Sexually Active Control Partners Comments Yes Female Sex and Gender Information Value Date Recorded Sex Assigned at Not on file 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 Gender Identity Not on file Sexual Orientation Not on file documented as of this encounter Plan of Treatment Not on file documented as of this encounter Visit Diagnoses Not on filedocumented in this encounter Care Teams Web Site Administrator Relationship Specialty Start Date End Date Braydon Pavon PAC [address] [place] [address] PCP - General Physician Battery Mechanic 06/22/18 Vikram Mora MD [address] [phone] Consulting Physician Endocrinology 05/21/23 Riddhi Bello APRN, FRONT DESK MONITOR [address] [place] [address] Nurse Practitioner Advanced Practice Nurse 02/10/23 documented as of this encounter
--- OUTSIDE RECORDS SUMMARY | 2024-04-19 23:02 | XMS_ITS | Encounter Summary ---
Author Organization [facility] Address [address] 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); S/P TIPS (transjugular intrahepatic portosystemic shunt) Discharge Disposition: Discharged to home or Selfcare [...] on file 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 Gender Identity Not on file Sexual Orientation Not on file documented as of this encounter Last Filed Vital Signs Vital Sign Reading Time Taken Comments Blood Pressure 152/82 01/07/2024 8:47 AM CDT Pulse 81 01/07/2024 8:47 AM CDT Temperature 37.1 ??C (98.7 ??F) 01/07/2024 8:47 AM CD T Respiratory Rate 14 01/07/2024 8:47 AM CDT Oxygen Saturation 97% 01/07/2024 8:47 AM CDT Inhaled Oxygen Concentration - - Weight 99.9 kg (220 lb 4.8 oz) 01/07/2024 8:47 A M CDT Height 170.2 cm (5' 7 ) 01/07/2024 8:47 AM CDT Body Mass Index 34.5 01/07/2024 8:47 AM CDT documented in this encounter Patient Instructions * Patient Instructions* Riddhi Bello APRN, CNP - 01/07/2024 9:00 AM CDT Take a bottle of magnesium citrate On the day that you take the magnesium citrate do not take any mirilax or other laxatives. Hold thelactulose as well. 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 Takes lactulose 30 mls 4 times a day, mirilax daily (last 4 days), milk of magnesia (last 4 days). KUB done this morning before office visit. Last BM this morning, loose and small amount. At this time we will have him take a bottle of magnesium citrate for the constipation. He will stopthe mirilax and milk of magnesia at this time. He will hold the lactulose the day he takes the magnesium citrate, but restart the lactulose later that night or the next morning. No follow-ups on file. Subjective Subjective: HPI: Camilo Curry is a 53 y.o. male presents for Follow-up Camilo Curry is a 53 y.o. male is here today for follow-up for constipation. Patient was last seen in this office on 05/29/2023 for liver cirrhosis, abdominal pain, nausea vomiting. Office note from that visit was reviewed and noted that patient was reporting issues with episodic epigastric pain. History of liver cirrhosis status post tips procedure. History esophageal varices. Having issues with decreased appetite at that time night sweats, he did fall and hurt his tailbone. Nausea that he was using Zofran 4. Is complicated patient due to liver cirrhosis and was referred out to [facility]. Testing that was ordered at that time included HIDA scan, blood work. Medication changes included none. ER/hospital visits related to this issue since last office visit: None Patient has been seen by [facility] twice since his last office visit here. Patient returns today to the office for follow up reporting: Issues with constipation. This is not a new issue. Didn't have a BM for multiple days. RLQ pain, nausea. Has been taking the lactulose 4 times a day. Also taking MOM and mirilax. He takes norco multiple times a day for pain. He is passing gas. He states that he had a small BM this morning that was loose. No blood in stools. Testing results included HIDA scan 100% ejection fraction. They have been taking lactulose 30 mg 4 times a day as prescribed. Have also been using OTC MOM andmirilax. Recent imaging for relevant to GI issues include: He is to have an MRI at [facility] later this month Past GI procedures include 2020 EGD noted esophageal varices with banding. 2022 EGD noted grade 1 esophageal varices no banding needed at that time. Stomach and antrum appeared normal. Diffuse erythema and edema consistent with portal hypertension gastropathy. No ulcerationerosion, inflammation, AVM or malignancy seen. Duodenum normal bulb 2nd and 3rd portion normal. 2020 colonoscopies poor prep 2022 colonoscopies noted extensive sigmoid diverticulosis, polyp from cecum removed. Repeat colonoscopy 5 years recommended. Other health issues are as noted in the chart. Past Medical History: Past Medical History Positives Diagnosis Date Anxiety Cirrhosis of liver (HCC) Diabetes mellitus (HCC) Esophageal varices (HCC) Hepatitis BLAND (nonalcoholic steatohepatitis) Spinal stenosis Past Surgical History: Past Surgical History: Procedure Laterality Date COLONOSCOPY N/A 03/24/2023 Procedure: COLONOSCOPY-CECAL POLYP REMOVED BY HOT SNARE, DIVERTICULOSIS; Surgeon: Ac Berger MD; Location: [facility]; Service: Gastroenterology COLONOSCOPY W/ BIOPSY 2005 EGD WITH BANDING EGD WITH BANDING TIPS PROCEDURE TIMES 2 UPPER GASTROINTESTINAL ENDOSCOPY N/A 03/24/2023 Procedure: EGD-PORTAL HYPERTENSIVE GASTROPATHY, GRADE ONE ESOPHAGEAL VARCIES; Surgeon: Ac Berger MD; Location: [facility]; Service: Gastroenterology Medications: Current Outpatient Medications: albuterol 108 (90 Base) MCG/ACT Aerosol Solution ALPRAZolam (XANAX) 1 MG Tablet carvedilol (COREG) 3.125 MG Tablet Continuous Blood Gluc Claims Customer Service Representative (Dexcom G7 Claims Customer Service Representative) Device Continuous Blood Gluc Sensor (Dexcom G7 Sensor) Misc Enulose 10 GM/15ML Solution ergocalciferol (VITAMIN D) 65433 UNIT Capsule famotidine (PEPCID) 20 MG Tablet famotidine (PEPCID) 20 MG Tablet Glucose Blood Strip HumaLOG KwikPen 100 UNIT/ML Solution Pen-injector hydroCHLOROthiazide 25 MG Tablet HYDROcodone-acetaminophen ([place]) 10-325 MG Tablet HYDROcodone-acetaminophen (NORCO) 7.5-325 MG Tablet Insulin Pen Needle (B-D ULTRAFINE III SHORT PEN) 31G X 8 MM Misc Insulin Pen Needle (B-D ULTRAFINE III SHORT PEN) 31G X 8 MM Misc Insulin Pen Needle (Pen Cranston) 32G X 4 MM Misc Lantus SoloStar 100 UNIT/ML Solution Pen-injector Omeprazole 20 MG Tablet Delayed Response ondansetron (ZOFRAN) 4 MG Tablet ondansetron (ZOFRAN-ODT) 4 MG TABLET DISPERSIBLE OneTouch Ultra Strip pregabalin (LYRICA) 200 MG Capsule rifAXIMin (XIFAXAN) 200 MG Tablet traZODone (DESYREL) 100 MG Tablet Trulicity 0.75 MG/0.5ML Solution Pen-injector injection Allergies: Allergies Allergen Reactions Iodinated Contrast Media Swelling and Rash Azactam [Aztreonam In Dextrose] Unknown Aztreonam Unknown Ciprofloxacin Hcl Unknown Duloxetine Hcl Unknown Erythromycin Unknown Nexium [Esomeprazole Magnesium] Unknown Octreotide Unknown Penicillins Unknown Sulfa Antibiotics Unknown Wound Dressing Adhesive Other (see Comments) Tape - Blisters Rest of the history reviewed from the chart and as noted previously. Review of systems was negative, except as documented in HPI. Objective Objective: BP 152/82 Pulse 81 Temp 98.7 ??F (37.1 ??C) Resp 14 Ht 5' 7 (1.702 m) Wt 220 lb 4.8 oz (99.9 kg) SpO2 97% BMI 34.50 kg/m?? General appearance: alert, no distress, cooperative, appears stated age Lungs: clear to auscultation bilaterally Heart: regular rate and rhythm, Abdomen: soft, non-tender. Rounded. Bowel sounds normal. Neurologic: Alert and oriented X 3. Labs: Lab Results Component Value Date WBC 5.07 11/13/2023 HEMOGLOBIN 16.2 11/13/2023 HEMATOCRIT 45.2 11/13/2023 PLATELETCNT 94 (L) 11/13/2023 MCV 76.4 (L) 11/13/2023 Lab Results Component Value Date INR 1.2 03/24/2023 Lab Results Component Value Date SODIUM 139 11/13/2023 POTASSIUM 3.7 11/13/2023 CHLORIDE 105 11/13/2023 CO2VEN 24 11/13/2023 ANIONGAP 13.7 11/13/2023 GLUCOSE 188 (H) 11/13/2023 BUN 11 11/13/2023 CREATININE 0.84 11/13/2023 BCRATIO8 13 11/13/2023 TOTALPROTEIN 7.3 11/13/2023 ALBUMIN 3.9 11/13/2023 CALCIUM 9.4 11/13/2023 TBIL 3.6 (H) 11/13/2023 SGOTAST 27 11/13/2023 SGPTALT 17 11/13/2023 ALKALINEPHO 90 11/13/2023 GFRNA >60 11/13/2023 GFRA >60 11/13/2023 No results found. Review of diagnostic tests: prior imaging, prior EGD and colonoscopy reports Riddhi Bello APRN, CNP This note was transcribed using [employer] speech recognition software. As a result, there may be unintended grammar and spelling errors. 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
--- OUTSIDE RECORDS SUMMARY | 2024-04-19 23:02 | XMS_ITS | Encounter Summary ---
Author Organization [facility] Address [address] [place] [address] Phone Care Team Providers Care Proctologist Name Role Phone Braydon Pavon Kunal NEAL Primary Care Provider [phone] Vikram Mora MD Unavailable Riddhi Bello APRN, CNP Unavailable Encounter Details Date Type Department Care Team (Late st Contact Info) Description 07/07/2023 Telephone [facility] - Endocrinology - [place] [address] [place] [address] Vikram Mora MD [address] [address] Social History Tobacco Use Types Packs/Day Years Used Date Smoking Tobacco: Former Cigarettes Q uit: 2002 Smokeless Tobacco: Never Alcohol Use Standard Drinks/Week Comments Not Currently 0 (1 standard drink = 0.6 oz pur e alcohol) Sexually Active Control Partners Comments Yes Female Sex and Gender Information Value Date Recorded Sex Assigned at Not on file Legal Sex Male 10:58 AM ELECTRONIC SEMICONDUCTOR PROCESSOR Gender Identity Not on file Sexual Orientation Not on file documented as of this encounter Miscellaneous Notes * Telephone Encounter - Brianna Brown RN - 07/07/2023 10:59 AM ELECTRONIC SEMICONDUCTOR PROCESSOR No show letter sent. TRONIC SEMICONDUCTOR PROCESSOR documented in this encounter Plan of Treatment Not on file documented as of this encounter Visit Diagnoses Not on filedocumented in this encounter Care Teams Proctologist Relationship Specialty Start Date End Date Braydon Pavon PAC [address] [place] [address] PCP - General Physician Baby Attendant 06/22/18 Vikram Mora MD #[address] [phone] Consulting Physician Endocrinology 05/21/23 Riddhi Bello APRN, TEST AUTOMATION ARCHITECT [address] [place] [address] Nurse Practitioner Advanced Practice Nurse 02/10/23 documented as of this encounter
--- OUTSIDE RECORDS SUMMARY | 2024-04-19 23:02 | XMS_ITS | Encounter Summary ---
Author Organization [facility] Address [address] [place] [address] Phone Care Team Providers Care Paint Prepper Name Role Phone Braydon Pavon Kunal NEAL Primary Care Provider Riddhi Bello APRN, SHIP SELF DEFENSE SYSTEM MK1 OPERATOR Unavailable Encounter Details Date Type Department Care Team (Late st Contact Info) Description 02/12/2023 Telephone [facility] - Gastroenterology - [place] [address] [place] [address] Riddhi Bello APRN, SHIP SELF DEFENSE SYSTEM MK1 OPERATOR [address] [place] [address] Social History Tobacco Use Types Packs/Day Years Used Date Smoking Tobacco: Former Cigarettes Q uit: 2002 Smokeless Tobacco: Never Alcohol Use Standard Drinks/Week Comments Not Currently 0 (1 standard drink = 0.6 oz pur e alcohol) Sexually Active Control Partners Comments Yes Female Sex and Gender Information Value Date Recorded Sex Assigned at Not on file Legal Sex Male 10:58 AM SUSTAINABLE SYSTEMS ANALYST Gender Identity Not on file Sexual Orientation Not on file COVID-19 Exposure Response Date Recorded In the last 10 days, have yo u been in contact with someone who was confirmed or suspected to have Coronavirus/COVID-19? No / Unsure 02/10/2023 12:46 PM CDT documented as of this encounter Miscellaneous Notes * Telephone Encounter - Bridgett Mccartney CMA - 02/12/2023 9:42 AM CDT Per request from Riddhi Bello NP, patient signed release of information request. This request was filled out and faxed to Dr Miguel in [facility]. Confirmation was obtained. This release was scanned into the Media section of patients chart documented in this encounter Plan of Treatment Not on file documented as of this encounter Visit Diagnoses Not on filedocumented in this encounter Care Teams Paint Prepper Relationship Specialty Start Date End Date Braydon Pavon PAC [address] [place] [address] PCP - General Physician Electrician Master 06/22/18 Riddhi Bello APRN, SHIP SELF DEFENSE SYSTEM MK1 OPERATOR [address] [place] [address] Nurse Practitioner Advanced Practice Nurse 02/10/23 documented as of this encounter
--- OUTSIDE RECORDS SUMMARY | 2024-04-19 23:02 | XMS_ITS | Encounter Summary ---
Author Organization [facility] Address [address] 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) Procedures US ABDOMEN LIMITED LEVEL 3 THREE ORGAN Riddhi Bello APRN, CNP [address] [place] [address] Phone: tel: fax: Referral ID Status Reason Start Date Expiration Date Visits Re quested Visits Authorized [id number] Closed 02/10/2023 1 1 Reason for Visit * Radiology Services (Routine) - Closed Specialty Diagnoses / Procedures Referred By Contac t Referred To Contact Radiology Diagnoses 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) Procedures US ABDOMEN LIMITED LEVEL 3 THREE ORGAN Riddhi Bello APRN, CNP [address] [place] [address] Phone: tel: fax: Referral ID Status Reason Start Date Expiration Date Visits Re quested Visits Authorized [id number] Closed 02/10/2023 1 1 Encounter Details Date Type Department Care Team (Late st Contact Info) Description 02/26/2023 8:21 AM CDT - 02/26/2023 11:59 PM CDT Hospital Encounter [facility] Ultrasound [address] [facility] [place] [address] Riddhi Bello APRN, FRAME OPERATOR [address] [place] [address] Discharge Disposition: Discharged to home or Selfcare [...] on file 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 No / Unsure 02/26/2023 8:15 AM CDT documented as of this encounter Medications at Time of Discharge albuterol 108 (90 Base) MCG/ACT Aerosol Solution every 4 hours as needed. 02/02/2023 ALPRAZolam (XANAX) 1 MG Tablet Take by mouth as needed. carvedilol (COREG) 3.125 MG Tablet Take 1 Tablet by mouth 2 times daily. 180 Tablet 3 02/17/2023 ergocalciferol (VITAMIN D) 69984 UNIT Capsule Take 50,000 Units by mouth. Glucose Blood Strip 1 Strip by Does not apply route. 12/08/2018 HumaLOG KwikPen 100 UNIT/ML Solution Pen-injector 3 times daily (before meals). 02/02/2023 hydroCHLOROthiaz james 25 MG Tablet Take 25 mg by mouth daily. Insulin Pen Needle (B-D ULTRAFINE III SHORT PEN) 31G X 8 MM Misc 02/26/2021 Insulin Pen Needle (B-D ULTRAFINE III SHORT PEN) 31G X 8 MM Misc 1 Each by Subcutaneous route. 11/07/2020 Insulin Pen Needle (Pen [place]) 32G X 4 MM Misc Inject 3 [...] traZODone (DESYREL) 100 MG Tablet nightly. 02/02/2023 Insulin Regular Human (HUMULIN R IJ)Indications:1 50 units in AM, 100 units in PM 150 Units by Injection route. Indications: 150 units in AM, 100 units in PM 4 LACTULOSE PO Take 30 mL by mouth 4 times daily. 4 metFORMIN (GLUCOPHAGE) 1000 MG Tablet Take 1,000 mg by mouth 2 times daily (with meals). 4 traMADol (ULTRAM) 50 MG Tablet 0 02/02/2023 4 Trulicity 0.75 MG/0.5ML Solution Pen-injector once a week. 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 US ABDOMEN LIMITED LEVEL 3 THREE ORGAN TECHNIQUE: Ultrasound of the right upper quadrant of the abdomen was performed with grayscale and color doppler. COMPARISON: ?? None FINDINGS: PANCREAS: ?? Not seen LIVER: ?? The liver has a coarse ultrasound architecture. ??No mass was seen. ??The portal vein is patent. ??Hepatopetal flow was seen. GALLBLADDER: ?? The gallbladder appears unremarkable. No cholelithiasis. ??No gallbladder wall thickening or pericholecystic fluid. No positive sonographic [place] sign reported. ?? BILIARY: ?? There is no intrahepatic or extrahepatic biliary ductal dilatation. ??Common bile duct measures ??0.4 cm ??in diameter. RIGHT KIDNEY: The right kidney is located in the pelvis. ?? Normal size. Normal echogenicity. No solid mass. ??A 1.5 cm benign peripelvic cyst is seen. ??No hydronephrosis. ??Measures ??9.3 ??cm in length. OTHER: ?? No other significant findings. IMPRESSION: Coarse ultrasound architecture in the liver, perhaps due to cirrhosis. ??No definite mass was seen. Right pelvic kidney. THIS IS AN ELECTRONICALLY VERIFIED FINAL REPORT 03/01/2023 5:46 AM - Electronically signed by ??Kyle KEMP: VIRIDIANA D: ??03/01/2023 5:46 AM T: ??03/01/2023 5:46 AM Report ID: [id number] Reading Location: ??[id number] THIS IS AN ELECTRONICALLY VERIFIED FINAL REPORT 03/09/2023 8:07 AM ??Addendum Electronically signed by Kyle KEMP: VIRIDIANA D: ??03/04/2023 4:00 PM T: ??03/04/2023 4:00 PM Report ID: [id number] Reading Location: ??[id number] Impressions 03/01/2023 5:49 AM CDT IMPRESSION: Coarse ultrasound architecture in the liver, perhaps due to cirrhosis. ??No definite mass was seen. Right pelvic kidney. Narrative 03/01/2023 5:49 AM CDT EXAM DESCRIPTION: ?? US ABDOMEN LIMITED LEVEL 3 THREE ORGAN TECHNIQUE: Ultrasound of the right upper quadrant of the abdomen was performed with grayscale and color doppler. COMPARISON: ?? None FINDINGS: PANCREAS: ?? Not seen LIVER: ?? The liver has a coarse ultrasound architecture. ??No mass was seen. ??The portal vein is patent. ??Hepatopetal flow was seen. GALLBLADDER: ?? The gallbladder appears unremarkable. No cholelithiasis. ??No gallbladder wall thickening or pericholecystic fluid. No positive sonographic [place] sign reported. ?? BILIARY: ?? There is no intrahepatic or extrahepatic biliary ductal dilatation. ??Common bile duct measures ??0.4 cm ??in diameter. RIGHT KIDNEY: The right kidney is located in the pelvis. ?? Normal size. Normal echogenicity. No solid mass. ??A 1.5 cm benign peripelvic cyst is seen. ??No hydronephrosis. ??Measures ??9.3 ??cm in length. OTHER: ?? No other significant findings. THIS IS AN ELECTRONICALLY VERIFIED FINAL REPORT 03/01/2023 5:46 AM - Electronically signed by ??Kyle Tubbs M.D. VIRIDIANA: VIRIDIANA D: ??03/01/2023 5:46 AM T: ??03/01/2023 5:46 AM Report ID: [id number] Reading Location: ??[id number] Procedure Note Carl Tubbs MD - 03/01/2023 EXAM DESCRIPTION: US ABDOMEN LIMITED LEVEL 3 THREE ORGAN TECHNIQUE: Ultrasound of the right upper quadrant of the abdomen was performed with grayscale and color doppler. COMPARISON: None FINDINGS: PANCREAS: Not seen LIVER: The liver has a coarse ultrasound architecture. No mass was seen. The portal vein is patent. Hepatopetal flow was seen. GALLBLADDER: The gallbladder appears unremarkable. No cholelithiasis. No gallbladder wall thickening or pericholecystic fluid. No positive sonographic [place] sign reported. BILIARY: There is no intrahepatic or extrahepatic biliary ductal dilatation. Common bile duct measures 0.4 cm in diameter. RIGHT KIDNEY: The right kidney is located in the pelvis. Normal size. Normal echogenicity. No solid mass. A 1.5 cm benign peripelvic cyst is seen. No hydronephrosis. Measures 9.3 cm in length. OTHER: No other significant findings. THIS IS AN ELECTRONICALLY VERIFIED FINAL REPORT 03/01/2023 5:46 AM - Electronically signed by Kyle Tubbs M.D. VIRIDIANA: VIRIDIANA Report ID: [id number] Reading Location: [place] [address] IMPRESSION: Coarse ultrasound architecture in the liver, perhaps due to cirrhosis. No definite mass was seen. Right pelvic kidney. 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
--- OUTSIDE RECORDS SUMMARY | 2024-04-19 23:02 | XMS_ITS | Encounter Summary ---
Author Organization [facility] Address [address] [place] [address] Phone Care Team Providers Care Teacher Industrial Arts Name Role Phone Braydon Pavon Kunal NEAL Primary Care Provider Riddhi Bello APRN, MAINTENANCE ELECTRICIAN Unavailable Encounter Details Date Type Department Care Team (Late st Contact Info) Description 02/26/2023 Telephone [facility] - Gastroenterology - [place] [address] [place] [id number] Ac Berger MD [address] [address] Social History Tobacco Use Types Packs/Day Years Used Date Smoking Tobacco: Former Cigarettes Q uit: 2002 Smokeless Tobacco: Never Alcohol Use Standard Drinks/Week Comments Not Currently 0 (1 standard drink = 0.6 oz pur e alcohol) Sexually Active Control Partners Comments Yes Female Sex and Gender Information Value Date Recorded Sex Assigned at Not on file 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 No / Unsure 02/26/2023 8:15 AM CDT documented as of this encounter Miscellaneous Notes * Telephone Encounter - Bridgett Mccartney CMA - 02/26/2023 2:54 PM CDT Double colonoscopy prep instructions sent through [employer] documented in this encounter Plan of Treatment Not on file documented as of this encounter Visit Diagnoses Not on filedocumented in this encounter Care Teams Teacher Industrial Arts Relationship Specialty Start Date End Date Braydon Pavon [facility] [address] [place] [address] PCP - General Physician Soaking Tank Worker 06/22/18 Riddhi Bello APRN, MAINTENANCE ELECTRICIAN [address] [place] [address] Nurse Practitioner Advanced Practice Nurse 02/10/23 documented as of this encounter
--- OUTSIDE RECORDS SUMMARY | 2024-04-19 23:02 | XMS_ITS | Encounter Summary ---
Author Organization [facility] Care Team Providers Care Supply Requirements Officer Name Role Phone Braydon Pavon Primary Care Provider [phone] Riddhi Bello APRN, COMMERCIAL REAL ESTATE ASSOCIATE Unavailable Encounter Details Date Type Department Care Team (Latest Contact Info) Description 02/26/2023 Travel Social History Tobacco Use Types Packs/Day Years Used Date Smoking Tobacco: Former Cigarettes Q uit: 2002 Smokeless Tobacco: Never Alcohol Use Standard Drinks/Week Comments Not Currently 0 (1 standard drink = 0.6 oz pur e alcohol) Sexually Active Control Partners Comments Yes Female Sex and Gender Information Value Date Recorded Sex Assigned at Not on file 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
--- OUTSIDE RECORDS SUMMARY | 2024-04-19 23:02 | XMS_ITS | Encounter Summary ---
Author Organization [facility] Address [address] [place] [address] Phone Care Team Providers Care Lens Grinder Apprentice Name Role Phone BebeabBraydon Primary Care Provider [phone] Vikram Mora MD Unavailable Riddhi Bello APRN, CNP Unavailable Reason for Referral * Radiology Services (Routine) - Closed Specialty Diagnoses / Procedures Referred By Contac t Referred To Contact Radiology Diagnoses Pain of upper abdomen Nausea and vomiting, unspecified vomiting type Procedures XR ABDOMEN KUB FLAT PLATE Riddhi Bello APRN, STRUCTURAL ENGINEER [address] [place] [address] Phone: tel: fax: Referral ID Status Reason Start Date Expiration Date Visits Re quested Visits Authorized [id number] Closed 05/29/2023 1 1 ON PICTURE PROJECTIONIST * Radiology Services (Routine) - Closed Specialty Diagnoses / Procedures Referred By Contac t Referred To Contact Radiology Diagnoses Tail bone pain Procedures XR SACRUM & COCCYX Riddhi Bello APRN, STRUCTURAL ENGINEER [address] [place] [address] Phone: tel: fax: Referral ID Status Reason Start Date Expiration Date Visits Re quested Visits Authorized [id number] Closed 05/29/2023 1 1 ON PICTURE PROJECTIONIST Reason for Visit * Radiology Services (Routine) - Closed Specialty Diagnoses / Procedures Referred By Jordan t Referred To Contact Radiology Diagnoses Tail bone pain Procedures XR SACRUM & COCCYX Riddhi Bello APRN, STRUCTURAL ENGINEER [address] [place] [address] Phone: tel: fax: Referral ID Status Reason Start Date Expiration Date Visits Re quested Visits Authorized [id number] Closed 05/29/2023 1 1 Encounter Details Date Type Department Care Team (Late st Contact Info) Description 05/29/2023 12:30 PM MOTION PICTURE PROJECTIONIST - 05/29/2023 11:59 PM MOTION PICTURE PROJECTIONIST Hospital Encounter [facility] Diagnostic Radiology [address] [place] [address] Riddhi Bello APRN, STRUCTURAL ENGINEER [address] [place] [address] Discharge Disposition: Discharged to home or Selfcare [...] on file Legal Sex Male 10:58 AM MOTION PICTURE PROJECTIONIST Gender Identity Not on file Sexual Orientation Not on file documented as of this encounter Medications at Time of Discharge albuterol 108 (90 Base) MCG/ACT Aerosol Solution every 4 hours as needed. 02/02/2023 ALPRAZolam (XANAX) 1 MG Tablet Take by mouth as needed. carvedilol (COREG) 3.125 MG Tablet Take 1 Tablet by mouth 2 times daily. 180 Tablet 3 02/17/2023 ergocalciferol (VITAMIN D) 57235 UNIT Capsule Take 50,000 Units by mouth. [...] Subcutaneous route. 11/07/2020 Insulin Pen Needle (Pen [place]) 32G X 4 MM Misc Inject 3 [...] Name Priority Date/Time Associated Diagnosis Comments XR ABDOMEN KUB FLAT PLATE Routine 05/29/2023 1:28 PM MOTION PICTURE PROJECTIONIST Pain of upper abdomen Nausea and vomiting, unspecified vomiting type XR SACRUM & COCCYX Routine 05/29/2023 1: 27 PM MOTION PICTURE PROJECTIONIST Tail bone pain documented in this encounter Results * XR ABDOMEN KUB FLAT PLATE (05/29/2023 1:28 PM MOTION PICTURE PROJECTIONIST) Anatomical Region Laterality Modality Abdomen N/A Digital Radiogra phy 06/01/2023 6:23 PM MOTION PICTURE PROJECTIONIST Impressions 06/01/2023 6:26 PM MOTION PICTURE PROJECTIONIST IMPRESSION: ?? 1. ??Nonobstructive bowel gas pattern. Narrative 06/01/2023 6:26 PM MOTION PICTURE PROJECTIONIST EXAM DESCRIPTION: ?? XR ABDOMEN KUB FLAT [...] Electronically signed by ??Nixon Wetzel M.D. BS: ASHLIE D: ??06/01/2023 6:23 PM T: ??06/01/2023 6:23 PM Report ID: [id number] Reading Location: ??[id number] Procedure Note Nixon Wetzel MD - 06/01/2023 [...] Electronically signed by Nixon Wetzel M.D. BS: ASHLIE Report ID: [id number] Reading Location: [id number] IMPRESSION: 1. Nonobstructive bowel gas pattern. Riddhi Bello LACQUER SPRAYER, STRUCTURAL ENGINEER IMG DIAGNOSTIC OR DERABLES Final Result * XR SACRUM & COCCYX (05/29/2023 1:27 PM MOTION PICTURE PROJECTIONIST) Anatomical Region Laterality Modality Spine, Sacrum, Coccyx N/A Digital Ra diography 06/01/2023 7:28 AM MOTION PICTURE PROJECTIONIST Impressions 06/01/2023 7:30 AM MOTION PICTURE PROJECTIONIST IMPRESSION: No acute fracture identified. Inferior lumbar degenerative disc disease. Narrative 06/01/2023 7:30 AM MOTION PICTURE PROJECTIONIST EXAM DESCRIPTION: XR SACRUM and COCCYX REASON [...] AM T: ??06/01/2023 7:28 AM Report ID: [id number] Reading Location: ??[id number] Procedure Note Joel Yip MD - 06/01/2023 [...] Joel Yip M.D. MF: [id number] Report ID: [id number] Reading Location: [id number] IMPRESSION: No acute fracture identified. Inferior lumbar degenerative disc disease. Riddhi Bello APRN, CNP [facility] DIAGNOSTIC OR DERABLES Final Result documented in this encounter Visit Diagnoses Diagnosis Tail bone pain Other disorder of coccyx Pain of upper abdomen Abdominal pain, other specified site Nausea and vomiting, unspecified vomiting type documented in this encounter Care Teams Lens Grinder Apprentice Relationship Specialty Start Date End Date Braydon Pavon PAC [address] [place] [id number] PCP - General Physician Manager Maritime 06/22/18 Vikram Mora MD [address] [id number] Consulting Physician Endocrinology 05/21/23 Riddhi Bello APRN, DOROTHY [address] [place] [address] Nurse Practitioner Advanced Practice Nurse 02/10/23 documented as of this encounter
--- OUTSIDE RECORDS SUMMARY | 2024-04-19 23:02 | XMS_ITS | Encounter Summary ---
Author Organization [facility] Address [address] [place] [address] Phone Care Team Providers Care Business Case Analyst Name Role Phone Braydon Pavon Kunal NEAL Primary Care Provider [phone] Vikram Mora MD Unavailable Riddhi Bello APRN, CNP Unavailable Reason for Visit * Reason Comments High Blood Sugar Generalized Body Aches Encounter Details Date Type Department Care Team (Late st Contact Info) Description 11/13/2023 6:15 PM CDT - 11/13/2023 8:22 PM CDT Emergency [facility] [address] [place] [id number] Lul Junior, DO [address] [place] [address] Glucosuria Discharge Disposition: Discharged to home or Selfcare [...] on file Legal Sex Male 10:58 AM [employer] 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[employer] Gender Identity Not on file Sexual Orientation Not on file documented as of this encounter Last Filed Vital Signs Vital Sign Reading Time Taken Comments Blood Pressure 122/75 11/13/2023 8:15 PM CDT Pulse 93 11/13/2023 8:15 PM CDT Temperature 36.1 ??C (96.9 ??F) 11/13/2023 6:13 PM CD T Respiratory Rate 18 11/13/2023 6:13 PM CDT Oxygen Saturation 98% 11/13/2023 8:15 PM CDT Inhaled Oxygen Concentration - - Weight 97.5 kg (214 lb 15.2 oz) 11/13/2023 6:13 PM CDT Height 170.2 cm (5' 7 ) 11/13/2023 6:13 PM CDT Body Mass Index 33.67 11/13/2023 6:13 PM CDT documented in this encounter Discharge Instructions * Discharge Instructions* Lul Junior DO - 11/13/2023 8:06 PM CDT Follow up with your doctor within 24hrs Take Medications as prescribed. Return to ER immediately at anytime if symptoms worsen/ persists, chest pain, shortness of breath, lightheadedness, loss of consciousness, numbness/weakness/tingling in your arms or legs. If patient is using abdominal or rib muscles to breathe or breathing faster than normal. Return if fevers greater than 101, continuous vomiting, inability to drink fluids or tolerate solids by mouth, dehydration, lethargy, if patient not acting normally or any other concerns you may have. Please followup with your primary care doctor or the physician you have been given here in the emergency department prior to any travel. [facility]!!! [facility] !!! GO [facility]!!! documented in this encounter Medications at Time of Discharge albuterol 108 (90 Base) MCG/ACT Aerosol Solution every 4 hours as needed. 02/02/2023 ALPRAZolam (XANAX) 1 MG Tablet Take by mouth as needed. carvedilol (COREG) 3.125 MG Tablet Take 1 Tablet by mouth 2 times daily. 180 Tablet 3 02/17/2023 Continuous Blood Gluc Park Attendant (Dexcom G7 Park Attendant) Device Check blood glucose before each meal and at bedtime 1 Each 06/01/2023 ergocalciferol (VITAMIN D) 30296 UNIT Capsule Take 50,000 Units by mouth. [...] Subcutaneous route. 11/07/2020 Insulin Pen Needle (Pen Linwood) 32G X 4 MM Misc Inject 3 [...] traZODone (DESYREL) 100 MG Tablet nightly. 02/02/2023 Trulicity 0.75 MG/0.5ML Solution Pen-injector injection 0.75 mg by Subcutaneous route once a week. 11/03/2023 Continuous Blood Gluc Sensor (RacerTimes G7 Sensor) Misc Change sensor every 10 days. 9 Each 1 08/13/2023 4 guaiFENesin-codei ne (TUSSI-ORGANIDIN NR) 100-10 MG/5ML Syrup Take 5 mL by mouth every 4 hours as needed for Cough. 4 LACTULOSE PO Take 30 mL by mouth 4 times daily. 4 pregabalin (LYRICA) 75 MG CapsuleIndication s:Neuropathic Pain Take 75 mg by mouth 2 times daily. Indications: Neuropathic Pain 4 traMADol (ULTRAM) 50 MG Tablet 0 02/02/2023 4 documented as of this encounter ED Notes * Katherine Watson RN - 11/13/2023 8:20 PM CDT Patient discharged. Discharge instructions and patient educational material reviewed with patient; questions and concerns addressed; patient verbalizes understanding, using teach back. Patient discharged per ambulatory mode with self as responsible democrat. D/C'ed with Uriel cath intact. * Katherine Watson RN - 11/13/2023 7:36 PM CDT Patient given sandwich, crackers and juice as patient states that his blood sugar is dropping rapidly. * Lul Junior DO - 11/13/2023 7:22 PM CDT Chief Complaint Patient presents with High Blood Sugar Generalized Body Aches 53-year-old male complains of increased jaundice and fatigue. He has a history of BLAND and multipletips procedures done at [facility], he notes that his current living specialist is at [facility]- Dr. Bedolla, and he is trying to get a hold of them however they have not been able to return hiscall. He notes he did stop by the ER earlier today but it was a 6 hour wait any had his granddaughter with him and they said that she would to wait in the car so he decided to come here instead. He states, his sister who has a nurse noted that he looked more yellow than normal so he wanted to have his liver function tests checked. Denies any fevers/vomiting/diarrhea/recent illness or sick contacts or recent travel. Review of systems negative otherwise. No current facility-administered medications for this encounter. Current Outpatient Medications Medication Sig Dispense Refill albuterol 108 (90 Base) MCG/ACT Aerosol Solution every 4 hours as needed. ALPRAZolam (XANAX) 1 MG Tablet Take by mouth as needed. carvedilol (COREG) 3.125 MG Tablet Take 1 Tablet by mouth 2 times daily. (Patient not taking: Reported on 03/24/2023) 180 Tablet 3 Continuous Blood Gluc Park Attendant (Dexcom G7 Park Attendant) Device Check blood glucose before each meal andat bedtime 1 Each 0 Continuous Blood Gluc Sensor (Dexcom G7 Sensor) Misc Change sensor every 10 days. 9 Each 1 ergocalciferol (VITAMIN D) 91240 UNIT Capsule Take 50,000 Units by mouth. (Patient not taking: Reported on 02/17/2023) famotidine (PEPCID) 20 MG Tablet Take 1 Tablet by mouth 2 times daily as needed for Heartburn. 30 Tablet 0 Glucose Blood Strip 1 Strip by Does not apply route. guaiFENesin-codeine (TUSSI-ORGANIDIN NR) 100-10 MG/5ML Syrup Take 5 mL by mouth every 4 hours as needed for Cough. HumaLOG KwikPen 100 UNIT/ML Solution Pen-injector 50 Units 3 times daily (before meals). hydroCHLOROthiazide 25 MG Tablet Take 25 mg by mouth daily. (Patient not taking: Reported on 02/10/2023) HYDROcodone-acetaminophen (NORCO) 7.5-325 MG Tablet Take 10 Tablets by mouth three times a week. Insulin Pen Needle (B-D ULTRAFINE III SHORT PEN) 31G X 8 MM Misc Insulin Pen Needle (B-D ULTRAFINE III SHORT PEN) 31G X 8 MM Misc 1 Each by Subcutaneous route. Insulin Pen Needle (Pen Linwood) 32G X 4 MM Misc Inject 3 times daily LACTULOSE PO Take 30 mL by mouth 4 times daily. Lantus SoloStar 100 UNIT/ML Solution Pen-injector every 12 hours. 50 units AM and 35 units HS Omeprazole 20 MG Tablet Delayed Response Take 20 mg by mouth daily. (Patient not taking: Reported on 02/10/2023) ondansetron (ZOFRAN) 4 MG Tablet Take 4 mg by mouth every 8 hours as needed. ondansetron (ZOFRAN-ODT) 4 MG TABLET DISPERSIBLE Take 1 Tablet by mouth every 8 hours as needed forNausea - 1st line. 10 Tablet 0 OneTouch Ultra Strip pregabalin (LYRICA) 75 MG Capsule Take 75 mg by mouth 2 times daily. Indications: Neuropathic Pain rifAXIMin (XIFAXAN) 200 MG Tablet Take 550 mg by mouth 2 times daily. (Patient not taking: Reportedon 02/10/2023) traMADol (ULTRAM) 50 MG Tablet (Patient not taking: Reported on 02/27/2023) 0 traZODone (DESYREL) 100 MG Tablet nightly. Allergies Allergen Reactions Iodinated Contrast Media Swelling and Rash Azactam [Aztreonam In Dextrose] Unknown Aztreonam Unknown Ciprofloxacin Hcl Unknown Duloxetine Hcl Unknown Erythromycin Unknown Nexium [Esomeprazole Magnesium] Unknown Octreotide Unknown Penicillins Unknown Sulfa Antibiotics Unknown Wound Dressing Adhesive Other (see Comments) Tape - Blisters Past Medical History Positives Diagnosis Date Anxiety Cirrhosis of liver (HCC) Diabetes mellitus (HCC) Esophageal varices (HCC) Hepatitis BLAND (nonalcoholic steatohepatitis) Spinal stenosis Past Surgical History: Procedure Laterality Date COLONOSCOPY N/A 03/24/2023 Procedure: COLONOSCOPY-CECAL POLYP REMOVED BY HOT SNARE, DIVERTICULOSIS; Surgeon: Ac Berger MD; Location: [facility]; Service: Gastroenterology COLONOSCOPY W/ BIOPSY 2005 EGD WITH BANDING EGD WITH BANDING TIPS PROCEDURE TIMES 2 UPPER GASTROINTESTINAL ENDOSCOPY N/A 03/24/2023 Procedure: EGD-PORTAL HYPERTENSIVE GASTROPATHY, GRADE ONE ESOPHAGEAL VARCIES; Surgeon: Ac Berger MD; Location: [facility]; Service: Gastroenterology Social History Socioeconomic History Marital status: Spouse name: Not on file Number of children: Not on file Years of education: Not on file Highest education level: Not on file Occupational History Not on file Tobacco Use Smoking status: Former Current packs/day: 0.00 Types: Cigarettes Quit date: 2002 Years since quittin.5 Smokeless tobacco: Never Vaping Use Vaping status: Former Substance and Sexual Activity Alcohol use: Not Currently Drug use: Not Currently Sexual activity: Yes Partners: Female Other Topics Concern Not on file Social History Narrative Not on file Social Determinants of Health Financial Resource Needs: Not on file Food Insecurity Needs: Not on file Transportation Needs: Not on file Physical Activity: Not on file Stress: Not on file Social Integration: Not on file Intimate Partner Violence: Not on file Housing Stability: Not on file BP 146/73 Pulse 94 Temp 96.9 ??F (36.1 ??C) (Tympanic) Resp 18 Ht 5' 7 (1.702 m) Wt 214 lb 15.2 oz (97.5 kg) SpO2 99% BMI 33.67 kg/m?? Review of Systems Physical Exam Vitals and nursing note reviewed. Constitutional: General: He is not in acute distress. Appearance: He is well-developed. He is not diaphoretic. Comments: Age-appropriate, over nourished, male, family at the bedside, no acute distress, pleasantand cooperative. HENT: Head: Normocephalic and atraumatic. Right Ear: External ear normal. Left Ear: External ear normal. Nose: Nose normal. Mouth/Throat: Mouth: Mucous membranes are moist. Pharynx: No oropharyngeal exudate. Eyes: General: Scleral icterus (mild) present. Right eye: No discharge. Left eye: No discharge. Conjunctiva/sclera: Conjunctivae normal. Pupils: Pupils are equal, round, and reactive to light. Neck: Thyroid: No thyromegaly. Vascular: No JVD. Trachea: No tracheal deviation. Cardiovascular: Rate and Rhythm: Normal rate and regular rhythm. Heart sounds: Normal heart sounds. No murmur heard. Pulmonary: Effort: Pulmonary effort is normal. No respiratory distress. Breath sounds: Normal breath sounds. No wheezing or rales. Chest: Chest wall: No tenderness. Abdominal: General: Bowel sounds are normal. There is no distension. Palpations: Abdomen is soft. There is no mass. Tenderness: There is no abdominal tenderness. There is no guarding or rebound. Musculoskeletal: General: No tenderness. Normal range of motion. Cervical back: Normal range of motion and neck supple. Lymphadenopathy: Cervical: No cervical adenopathy. Skin: General: Skin is warm and dry. Capillary Refill: Capillary refill takes less than 2 seconds. Coloration: Skin is not pale. Findings: No erythema or rash. Neurological: Mental Status: He is alert and oriented to person, place, and time. Cranial Nerves: No cranial nerve deficit. Motor: No abnormal muscle tone. Coordination: Coordination normal. Deep Tendon Reflexes: Reflexes are normal and symmetric. Psychiatric: Behavior: Behavior normal. Thought Content: Thought content normal. Procedures Recent Results (from the past 24 hour(s)) CMP (Comprehensive Metabolic Panel) Result Value Ref Range SODIUM 139 136 - 145 mmol/L POTASSIUM 3.7 3.5 - 5.1 mmol/L CHLORIDE 105 98 - 107 mmol/L CO2, VENOUS 24 22 - 30 mmol/L ANION GAP 13.7 <18.0 mmol/L GLUCOSE 188 (H) 70 - 99 mg/dL BUN 11 8 - 26 mg/dL CREATININE, BLOOD 0.84 0.70 - 1.30 mg/dL BUN/CREATININE RATIO 13 12 - 20 ratio TOTAL PROTEIN 7.3 6.3 - 8.2 g/dL ALBUMIN 3.9 3.5 - 5.0 g/dL A/G RATIO 1.1 1.0 - 2.2 CALCIUM 9.4 8.7 - 10.5 mg/dL T BILI 3.6 (H) 0.2 - 1.2 mg/dL SGOT (AST) 27 5 - 34 U/L SGPT (ALT) 17 0 - 55 U/L ALKALINE PHOSPHATASE 90 40 - 150 U/L GFR, ESTIMATED >60 >=60 GFR, EST. >60 >=60 GFR, EST. NONAFRICAN >60 >=60 Lipase Result Value Ref Range LIPASE 16 8 - 78 U/L ACETONE QUAL Result Value Ref Range ACETONE Negative Negative CBC with Auto Differential Result Value Ref Range WBC 5.07 4.00 - 12.00 10(3)/mcL RBC 5.92 (H) 4.40 - 5.80 10(6)/mcL HEMOGLOBIN (HGB) 16.2 13.0 - 16.5 g/dL HEMATOCRIT (HCT) 45.2 38.0 - 50.0 % MCV 76.4 (L) 82.0 - 96.0 fL MCH 27.4 26.0 - 32.0 pg MCHC 35.8 31.0 - 36.0 g/dL PLATELET COUNT 94 (L) 140 - 440 10(3)/mcL RDW 17.4 (H) 11.8 - 15.5 % MPV 10.3 8.0 - 12.6 fL NRBC PER 100 WBC 0 URINALYSIS REFLEX IF INDICATED BY ABNORMAL RESULTS Result Value Ref Range SPECIFIC GRAVITY 1.025 1.003 - 1.030 URINE PH 5.0 5.0 - 9.0 WBC ESTERASE 25 /ul (A) Negative NITRITE Negative Negative PROTEIN, RANDOM URINE 30 mg/dL (A) Negative URINE GLUCOSE, QUAL 1000 mg/dL (A) Negative URINE KETONES 5 mg/dL (A) Negative UROBILINOGEN 4 mg/dL (A) Normal mg/dL URINE BLOOD Negative Negative kristan/ul URINALYSIS COLOR Dark Yellow URINALYSIS CLARITY Clear WBC (Urine) 0-5 Negative, 0-5 /hpf URINE RBC'S Negative Negative, 0-2 /hpf EPITHELIAL CELLS Negative /lpf BACTERIA, URINE Negative Negative /hpf URINE MUCOUS Few Imaging Results None Medical Decision Making I have recommended close follow up [facility] or [facility] for GI evaluation and further workup/management. He and the family agree with the assessment and understanding. Clinical Impression 1. Elevated bilirubin 2. Fatigue 3. Glucosuria Disposition: Discharge Disposition: Discharge home Condition:Stable CLINICAL IMPRESSION: 1. Elevated bilirubin 2. Fatigue 3. Glucosuria Current Outpatient Medications Medication Instructions albuterol 108 (90 Base) MCG/ACT Aerosol Solution EVERY 4 HOURS PRN ALPRAZolam (XANAX) 1 MG Tablet Oral, PRN carvedilol (COREG) 3.125 mg, Oral, 2 TIMES DAILY Continuous Blood Gluc Park Attendant (Dexcom G7 Park Attendant) Device Check blood glucose before each meal andat bedtime Continuous Blood Gluc Sensor (Dexcom G7 Sensor) Misc Change sensor every 10 days. ergocalciferol (VITAMIN D) 50,000 Units famotidine (PEPCID) 20 mg, Oral, 2 TIMES DAILY PRN Glucose Blood Strip 1 Strip, Does not apply guaiFENesin-codeine (TUSSI-ORGANIDIN NR) 100-10 MG/5ML Syrup 5 mL, Oral, EVERY 4 HOURS PRN HumaLOG KwikPen 50 Units, 3 TIMES DAILY BEFORE MEALS hydroCHLOROthiazide 25 mg, DAILY HYDROcodone-acetaminophen (NORCO) 7.5-325 MG Tablet 10 Tablets, Oral, THREE TIMES WEEKLY Insulin Pen Needle (B-D ULTRAFINE III SHORT PEN) 31G X 8 MM Misc No dose, route, or frequency recorded. Insulin Pen Needle (B-D ULTRAFINE III SHORT PEN) 31G X 8 MM Misc 1 Each, Subcutaneous Insulin Pen Needle (Pen Linwood) 32G X 4 MM Misc Inject 3 times daily LACTULOSE PO 30 mL, Oral, 4 TIMES DAILY Lantus SoloStar 100 UNIT/ML Solution Pen-injector EVERY 12 HOURS, 50 units AM and 35 units HS Omeprazole 20 mg, DAILY ondansetron (ZOFRAN) 4 mg, Oral, EVERY 8 HOURS PRN ondansetron (ZOFRAN-ODT) 4 mg, Oral, EVERY 8 HOURS PRN OneTouch Ultra Strip No dose, route, or frequency recorded. pregabalin (LYRICA) 75 mg, Oral, 2 TIMES DAILY rifAXIMin (XIFAXAN) 550 mg, 2 TIMES DAILY traMADol (ULTRAM) 50 MG Tablet No dose, route, or frequency recorded. traZODone (DESYREL) 100 MG Tablet NIGHTLY No current facility-administered medications on file prior to encounter. Current Outpatient Medications on File Prior to Encounter Medication Sig Dispense Refill albuterol 108 (90 Base) MCG/ACT Aerosol Solution every 4 hours as needed. ALPRAZolam (XANAX) 1 MG Tablet Take by mouth as needed. carvedilol (COREG) 3.125 MG Tablet Take 1 Tablet by mouth 2 times daily. (Patient not taking: Reported on 03/24/2023) 180 Tablet 3 Continuous Blood Gluc Park Attendant (Dexcom G7 Park Attendant) Device Check blood glucose before each meal andat bedtime 1 Each 0 Continuous Blood Gluc Sensor (Dexcom G7 Sensor) Misc Change sensor every 10 days. 9 Each 1 ergocalciferol (VITAMIN D) 99096 UNIT Capsule Take 50,000 Units by mouth. (Patient not taking: Reported on 02/17/2023) famotidine (PEPCID) 20 MG Tablet Take 1 Tablet by mouth 2 times daily as needed for Heartburn. 30 Tablet 0 Glucose Blood Strip 1 Strip by Does not apply route. guaiFENesin-codeine (TUSSI-ORGANIDIN NR) 100-10 MG/5ML Syrup Take 5 mL by mouth every 4 hours as needed for Cough. HumaLOG KwikPen 100 UNIT/ML Solution Pen-injector 50 Units 3 times daily (before meals). hydroCHLOROthiazide 25 MG Tablet Take 25 mg by mouth daily. (Patient not taking: Reported on 02/10/2023) HYDROcodone-acetaminophen (NORCO) 7.5-325 MG Tablet Take 10 Tablets by mouth three times a week. Insulin Pen Needle (B-D ULTRAFINE III SHORT PEN) 31G X 8 MM Misc Insulin Pen Needle (B-D ULTRAFINE III SHORT PEN) 31G X 8 MM Misc 1 Each by Subcutaneous route. Insulin Pen Needle (Pen Linwood) 32G X 4 MM Misc Inject 3 times daily LACTULOSE PO Take 30 mL by mouth 4 times daily. Lantus SoloStar 100 UNIT/ML Solution Pen-injector every 12 hours. 50 units AM and 35 units HS Omeprazole 20 MG Tablet Delayed Response Take 20 mg by mouth daily. (Patient not taking: Reported on 02/10/2023) ondansetron (ZOFRAN) 4 MG Tablet Take 4 mg by mouth every 8 hours as needed. ondansetron (ZOFRAN-ODT) 4 MG TABLET DISPERSIBLE Take 1 Tablet by mouth every 8 hours as needed forNausea - 1st line. 10 Tablet 0 OneTouch Ultra Strip pregabalin (LYRICA) 75 MG Capsule Take 75 mg by mouth 2 times daily. Indications: Neuropathic Pain rifAXIMin (XIFAXAN) 200 MG Tablet Take 550 mg by mouth 2 times daily. (Patient not taking: Reportedon 02/10/2023) traMADol (ULTRAM) 50 MG Tablet (Patient not taking: Reported on 02/27/2023) 0 traZODone (DESYREL) 100 MG Tablet nightly. Lul Junior D.O. Emergency/Tactical Medicine Note: Portions of this chart may have been completed with voice recognition software and may contain slight errors unrecognizable by the users. This would in no way affect the patient's care and is meant to improve length and quality of medical decision making and history taking. * Bryan Lay RN - 11/13/2023 7:04 PM CDT Bedside report given to Katherine SIMS * Katherine Watson RN - 11/13/2023 7:04 PM CDT Report received from BETHANY Adams. * Ana Lilia Ibrahim RN - 11/13/2023 6:11 PM CDT Pt to triage with c/o feeling weak and icky since yesterday. Pt states that his bs was high yesterday and he was seen at [facility]. Pt states that his sister is an RN and she told pt his eyes were yellow and made him come to ed. 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 Patient Education Table of Contents Fatigue Jaundice, Adult To view videos and all your education online visit, [email or web address] or scan this QR code with your smartphone. Access to this content will in one year. Fatigue If you have fatigue, you feel tired all the time and have a lack of energy or a lack of motivation.Fatigue may make it difficult to start or complete tasks because of exhaustion. Occasional or mild fatigue is often a normal response to activity or life. However, long-term (chronic) or extreme fatigue may be a symptom of a medical condition such as: Depression. Not having enough red blood cells or hemoglobin in the blood (anemia). A problem with a small gland located in the lower front part of the neck (thyroid disorder). Rheumatologic conditions. These are problems related to the body's defense system (immune system). Infections, especially certain viral infections. Fatigue can also lead to negative health outcomes over time. Follow these instructions at home: Medicines Take gbyt-[id number] and prescription medicines only as told by your health care provider. Take a multivitamin if told by your health care provider. Do not use herbal or dietary supplements unless they are approved by your health care provider. Eating and drinking Avoid heavy meals in the evening. Eat a well-balanced diet, which includes lean proteins, whole grains, plenty of fruits and vegetables, and low-fat dairy products. Avoid eating or drinking too many products with caffeine in them. Avoid alcohol. Drink enough fluid to keep your urine pale yellow. Activity Exercise regularly, as told by your health care provider. Use or practice techniques to help you relax, such as yoga, thi chi, meditation, or massage therapy. Lifestyle Change situations that cause you stress. Try to keep your work and personal schedules in balance. Do not use recreational or illegal drugs. General instructions Monitor your fatigue for any changes. Go to bed and get up at the same time every day. Avoid fatigue by pacing yourself during the day and getting enough sleep at night. Maintain a healthy weight. Contact a health care provider if: Your fatigue does not get better. You have a fever. You suddenly lose or gain weight. You have headaches. You have trouble falling asleep or sleeping through the night. You feel angry, guilty, anxious, or sad. You have swelling in your legs or another part of your body. Get help right away if: You feel confused, feel like you might faint, or faint. Your vision is blurry or you have a severe headache. You have severe pain in your abdomen, your back, or the area between your waist and hips (pelvis). You have chest pain, shortness of breath, or an irregular or fast heartbeat. You are unable to urinate, or you urinate less than normal. You have abnormal bleeding from the rectum, nose, lungs, nipples, or, if you are female, the vagina. You vomit blood. You have thoughts about hurting yourself or others. These symptoms may be an emergency. Get help right away. Call 911. Do not wait to see if the symptoms will go away. Do not drive yourself to the hospital. Get help right away if you feel like you may hurt yourself or others, or have thoughts about takingyour own life. Go to your nearest emergency room or: Call 911. Call the National Suicide Prevention Lifeline at or 475. This is open 24 hours a day. Text the Crisis Text Line at 213924. Summary If you have fatigue, you feel tired all the time and have a lack of energy or a lack of motivation. Fatigue may make it difficult to start or complete tasks because of exhaustion. Long-term (chronic) or extreme fatigue may be a symptom of a medical condition. Exercise regularly, as told by your health care provider. Change situations that cause you stress. Try to keep your work and personal schedules in balance. This information is not intended to replace advice given to you by your health care provider. Make sure you discuss any questions you have with your health care provider. Document Released: 2008-02-15 Document Updated: 2022-02-10 Document Reviewed: 2022-02-10 [employer] Patient Education ? 2023 [employer] Jaundice, Adult Jaundice is when the skin, the whites of the eyes, and the lining of the mouth and nose (mucous membranes) turn a yellowish color. This is caused by a substance that forms when red blood cells break down (bilirubin). Jaundice is caused by having too much bilirubin in the blood (hyperbilirubinemia). Bilirubin is processed by the liver. Jaundice can be a sign that the liver or the bile system is not working properly. The bile system is made up of the liver, the gallbladder, and the bile ducts. They work together to make, store, and move bile. What are the causes? This condition is caused by a buildup of bilirubin in the blood. An increase in the bilirubin levelin the blood can be caused by: Gallstones, if they block the bile ducts. Alcoholic liver disease. Other liver diseases, such as cirrhosis. Cirrhosis is scarring of the liver. Certain cancers that may block the bile ducts, such as pancreatic cancer. Certain infections, such as viral hepatitis. Certain genetic syndromes, such as Gilbert syndrome. Certain medicines, such as acetaminophen, if too much is used. What are the signs or symptoms? Symptoms of this condition include: Yellow color to the skin, the whites of the eyes, or the mucous membranes. Dark brown urine. Light or dakota-colored stools (feces). Itchy skin. How is this diagnosed? This condition is diagnosed with medical history, physical exam, blood tests, and imaging tests. You may have additional tests to check for other causes of increased bilirubin levels in your blood orto rule out other possible causes. How is this treated? Treatment for this condition depends on the cause of your jaundice and other underlying conditions.Treatment may include: Stopping the use of certain medicines. Getting fluids through an IV. Taking medicines or using lotions to treat itchy skin. Having surgery, if there is blockage of the bile ducts. Follow these instructions at home: Take kytk-btt-rkpigbl and prescription medicines only as told by your health care provider. Use skin lotion to relieve itching. Drink enough fluid to keep your urine pale yellow. Do not drink alcohol. Keep all follow-up visits. This is important. Contact a health care provider if: You have a fever. You have swelling or pain in the abdomen. Get help right away if: Your symptoms suddenly get worse. You vomit repeatedly. You vomit blood. You become weak or confused. You have blood in your stool. You become severely dehydrated. Signs of severe dehydration include: ? A very dry mouth. ? A severe headache. ? A rapid, weak pulse. ? Rapid breathing. ? Blue lips. These symptoms may represent a serious problem that is an emergency. Do not wait to see if the symptoms will go away. Get medical help right away. Call your local emergency services (911 in the [place] Do not drive yourself to the hospital. Summary Jaundice is a yellowish discoloration of the skin, the whites of the eyes, and the mucous membranes. Jaundice can be a sign that the liver or the bile system is not working properly. Symptoms include a yellow color to the skin or eyes, dark urine, and a change in stool color. Your health care provider will need to do further testing, including blood tests and imaging studies. Get help right away if your symptoms suddenly get worse, you become weak and confused, you vomit, you have blood in your stool, you have a severe headache, or you become dehydrated. This information is not intended to replace advice given to you by your health care provider. Make sure you discuss any questions you have with your health care provider. Document Released: 2006-04-20 Document Updated: 2021-08-01 Document Reviewed: 2021-08-01 [employer] Patient Education ? 2023 Paper.[email or web address]. documented in this encounter Plan of Treatment Not on file documented as of this encounter Procedures Procedure Name Priority Date/Time Associated Diagnosis Comments RSV,SARS-COV-2,INFLUE NZA A&B BY PCR STAT 11/13/2023 7:25 PM CDT URINALYSIS REFLEX IF INDICATED BY ABNORMAL RESULTS STAT 11/13/2023 6:53 PM CDT CBC WITH AUTO DIFFERENTIAL STAT 11/13/2023 6:40 PM CDT LIPASE STAT 11/13/2023 6:40 PM CDT CMP (COMPREHENSIVE METABOLIC PANEL) STAT 11/13/2023 6:40 PM CDT COMPLETE BLOOD COUNT (CBC) WITH DIFF STAT 11/13/2023 6:40 PM CDT TEST FOR ACETONE/KETONES STAT 11/13/2023 6:40 PM CDT documented in this encounter Results * RSV,SARS-COV-2,INFLUENZA A&B BY PCR (11/13/2023 7:25 PM CDT) FLU A Negative Negative, Error 11/13/2023 8:24 PM CDT [facility] FLU B Negative Negative 11/13/2023 8:24 PM CDT [facility] RESP SYNC VIRUS Negative Negative 8:24 PM CDT [facility] SARSCOV2 NOT DETECTED (Reference Range for this test is Not Detected) 11/13/2023 8:24 PM CDT [facility] Comment:This test was perfor med by a Reverse Jacquard Loom Heddles Tier PCR Method. Swab NASOPHARYNGEAL SWAB / Unknown Non-Phlebotomy Collection / Unknown 11/13/2023 7:25 PM CDT 11/13/2023 7:41 PM CDT Narrative [facility] - 11/13/2023 8:24 PM CDT This test has not been FDA cleared or approved; the test has been authorized by FDA under an Emergency Use Authorization (EUA) for use by laboratories certified under the CLIA that meet the requirements to perform moderate, high or waived complexity tests. Authorized Fact Sheets about this test for providers and patients are available at: https://www.fda.gov/medical-devices/wvdyjbtgb-vafouqdgyw-yifwtyo-devices/emergen cy-us e-authorizations us Lul Junior DO MICROBIOLOGY - GENERAL ORDERABLES Final Result [facility] [address] [place] [address] * (ABNORMAL) URINALYSIS REFLEX IF INDICATED BY ABNORMAL RESULTS (11/13/2023 6:53 PM CDT) SPECIFIC GRAVITY 1.025 1.003 - 1.030 11/13/2023 7:30 PM CDT [facility] URINE PH 5.0 5.0 - 9.0 11/13/2023 7:30 PM CDT [facility] WBC ESTERASE 25 /ul(A) Negative 11/13/2023 7:30 PM CDT [facility] NITRITE Negative Negative 11/13/2023 7:30 PM CDT [facility] PROTEIN, RANDOM URINE 30 mg/dL(A) Negative 11/13/2023 7:30 PM CDT [facility] URINE GLUCOSE, QUAL 1000 mg/dL(A) Negative 11/13/2023 7:30 PM CDT [facility] URINE KETONES 5 mg/dL(A) Negative 11/13/2023 7:30 PM CDT [facility] UROBILINOGEN 4 mg/dL(A) Normal mg/dL 11/13/2023 7:30 PM CDT [facility] URINE BLOOD Negative Negative kristan/ul 11/13/2023 7:30 PM CDT [facility] URINALYSIS COLOR Dark Yellow 024 7:30 PM CDT [facility] URINALYSIS CLARITY Clear 11/13/2023 7:30 PM CDT [facility] WBC (Urine) 0-5 Negative, 0-5 /hpf 11/13/2023 7:30 PM CDT [facility] URINE RBC'S Negative Negative, 0-2 /hpf 11/13/2023 7:30 PM CDT [facility] EPITHELIAL CELLS Negative /lpf 07/12/20 24 7:30 PM CDT [facility] BACTERIA, URINE Negative Negative /hpf 11/13/2023 7:30 PM CDT [facility] URINE MUCOUS Few 11/13/2023 7:30 PM CDT [facility] Urine URINE SPECIMEN / Unknown Non-Phlebotomy Collection / Unknown 11/13/2023 6:53 PM CDT 11/13/2023 7:07 PM CDT us Lul Junior DO URINE ORDERABLES Final Result [facility] [address] [place] [address] * (ABNORMAL) CBC with Auto Differential (11/13/2023 6:40 PM CDT) WBC 5.07 4.00 - 12.00 10(3)/mcL 11/13/2023 7:13 PM CDT [facility] RBC 5.92(H) 4.40 - 5.80 10(6)/mcL 11/13/2023 7:13 PM CDT [facility] HEMOGLOBIN (HGB) 16.2 13.0 - 16.5 g/dL 11/13/2023 7:13 PM CDT [facility] HEMATOCRIT (HCT) 45.2 38.0 - 50.0 % 11/13/2023 7:13 PM CDT [facility] MCV 76.4(L) 82.0 - 96.0 fL 11/13/2023 7:13 PM CDT [facility] MCH 27.4 26.0 - 32.0 pg 11/13/2023 7:13 PM CDT [facility] MCHC 35.8 31.0 - 36.0 g/dL 11/13/2023 7:13 PM CDT [facility] PLATELET COUNT 94(L) 140 - 440 10(3)/mcL 11/13/2023 7:13 PM CDT [facility] RDW 17.4(H) 11.8 - 15.5 % 11/13/2023 7:13 PM CDT [facility] MPV 10.3 8.0 - 12.6 fL 11/13/2023 7:13 PM CDT [facility] NRBC PER 100 WBC 0 11/13/2023 7:13 PM CDT [facility] Blood Venipuncture / Unknown 11/13/2023 6:40 PM CDT 11/13/2023 7:00 PM CDT Lul Junior DO HEMATOLOGY ORDERABLES F inal Result Performing Organization Address City/[facility]/ZIP Co de Phone Number [facility] [address] [place] [address] * ACETONE QUAL (11/13/2023 6:40 PM CDT) ACETONE Negative Negative 11/13/2023 7:33 PM CDT [facility] Blood Venipuncture / Unknown 11/13/2023 6:40 PM CDT 11/13/2023 7:00 PM CDT Lul Junior DO CHEMISTRY ORDERABLES Fi nal Result Performing Organization Address [facility] Co de Phone Number [facility] [address] [place] [address] * Lipase (11/13/2023 6:40 PM CDT) LIPASE 16 8 - 78 U/L 11/13/2023 7:25 PM CDT [facility] Blood Venipuncture / Unknown 11/13/2023 6:40 PM CDT 11/13/2023 7:00 PM CDT Lul Junior DO CHEMISTRY ORDERABLES Fi nal Result [facility] [address] [place] [address] * (ABNORMAL) CMP (Comprehensive Metabolic Panel) (11/13/2023 6:40 PM CDT) SODIUM 139 136 - 145 mmol/L 11/13/2023 7:25 PM CDT [facility] POTASSIUM 3.7 3.5 - 5.1 mmol/L 11/13/2023 7:25 PM CDT [facility] CHLORIDE 105 98 - 107 mmol/L 11/13/2023 7:25 PM CDT [facility] CO2, VENOUS 24 22 - 30 mmol/L 11/13/2023 7:25 PM CDT [facility] ANION GAP 13.7 <18.0 mmol/L 11/13/2023 7:25 PM CDT [facility] GLUCOSE 188(H) 70 - 99 mg/dL 11/13/2023 7:25 PM CDT [facility] BUN 11 8 - 26 mg/dL 11/13/2023 7:25 PM CDT [facility] CREATININE, BLOOD 0.84 0.70 - 1.30 mg/dL 11/13/2023 7:25 PM CDT [facility] BUN/CREATININE RATIO 13 12 - 20 ratio 11/13/2023 7:25 PM CDT [facility] TOTAL PROTEIN 7.3 6.3 - 8.2 g/dL 11/13/2023 7:25 PM CDT [facility] ALBUMIN 3.9 3.5 - 5.0 g/dL 11/13/2023 7:25 PM CDT [facility] A/G RATIO 1.1 1.0 - 2.2 11/13/2023 7:25 PM CDT [facility] CALCIUM 9.4 8.7 - 10.5 mg/dL 11/13/2023 7:25 PM CDT [facility] T BILI 3.6(H) 0.2 - 1.2 mg/dL 11/13/2023 7:25 PM CDT [facility] SGOT (AST) 27 5 - 34 U/L 11/13/2023 7:25 PM CDT [facility] SGPT (ALT) 17 0 - 55 U/L 11/13/2023 7:25 PM CDT [facility] ALKALINE PHOSPHATASE 90 40 - 150 U/L 11/13/2023 7:25 PM CDT [facility] GFR, ESTIMATED >60 >=60 11/13/2023 7:25 PM CDT [facility] Comment: Creatinine Clearance is the preferred criteria for selecting drug dose adjustments in renally impaired patients. ??The GFR is provided as additional pertinent clinical information. GFR is reported in mL/min/1.73 sq m. Calculation based on the Chronic Kidney Disease Epidemiology Collaboration (CKD- EPI) equation refit without adjustment for race. GFR, EST. >60 >=60 024 7:25 PM CDT [facility] GFR, EST. NONAFRICAN >60 >=60 11/13/2023 7:25 PM CDT [facility] Blood Venipuncture / Unknown 11/13/2023 6:40 PM CDT 11/13/2023 7:00 PM CDT us Lul Junior DO CHEMISTRY ORDERABLES Fi nal Result [facility] [address] [place] [address] documented in this encounter Visit Diagnoses Diagnosis Elevated bilirubin Disorders of bilirubin excretion Fatigue Other malaise and fatigue Glucosuria Glycosuria documented in this encounter Administered Medications Inactive Administered Medications - up to 3 most recent administrations Medication Order MAR Action Action Date Dose Rate Site 0.9 % sodium chloride solution at 999 mL/hr, Intravenous, ONCE, 1 dose, On Thu11/13/23 at 1900 New Bag 11/13/2023 6:56 PM CDT 1,000 mL 999 mL/hr documented in this encounter Active and Recently Administered Medications Times are shown in CDT. Scheduled Medication Order 11/11/2023 11/12/2023 11/13/2023 0.9 % sodium chloride solution (COMPLETED) at 999 mL/hr, Intravenous, ONCE, 1 dose, On Thu11/13/23 at 1900 1856 (New Bag - Prov ider: Bryan Lay, BETHANY)2008 (Stopped - Provider: Katherine Watson, BETHANY) documented in this encounter Additional Health Concerns Infection Onset Date Last Indicated Resolved Time COVID - 19 11/13/2023 11/13/2023 11/13/2023 8:24 PM CDT documented as of this encounter Care Teams Business Case Analyst Relationship Specialty Start Date End Date Braydon Pavon, [facility] [address] [place] [address] PCP - General Physician Processing Operator 06/22/18 Vikram Mora MD [address] [phone] Consulting Physician Endocrinology 05/21/23 Riddhi Bello APRN, MAGNET PLACER [address] [place] [address] Nurse Practitioner Advanced Practice Nurse 02/10/23 documented as of this encounter
--- OUTSIDE RECORDS SUMMARY | 2024-04-19 23:02 | XMS_ITS | Encounter Summary ---
Author Organization [facility] Address [address] [place] [address] Phone Care Team Providers Care Field Service Coordinator Name Role Phone BebeabBraydon Primary Care Provider [phone] Vikram Mora MD Unavailable Riddhi Bello APRN, CNP Unavailable Reason for Referral * Radiology Services (Routine) - Closed Specialty Diagnoses / Procedures Referred By Contac t Referred To Contact Radiology Diagnoses Constipation, unspecified constipation type Procedures XR ABDOMEN KUB FLAT PLATE Riddhi Bello APRN, STEM CUTTER [address] [place] [address] Phone: tel: fax: Referral ID Status Reason Start Date Expiration Date Visits Re quested Visits Authorized [id number] Closed 01/05/2024 1 1 Reason for Visit * Radiology Services (Routine) - Closed Specialty Diagnoses / Procedures Referred By Contac t Referred To Contact Radiology Diagnoses Constipation, unspecified constipation type Procedures XR ABDOMEN KUB FLAT PLATE Riddhi Bello APRN, STEM CUTTER [address] [place] [address] Phone: tel: fax: Referral ID Status Reason Start Date Expiration Date Visits Re quested Visits Authorized [id number] Closed 01/05/2024 1 1 Encounter Details Date Type Department Care Team (Late st Contact Info) Description 01/07/2024 8:00 AM CDT - 01/07/2024 11:59 PM CDT Hospital Encounter [facility] Diagnostic Radiology [address] [place] [address] Riddhi Bello APRN, STEM CUTTER [address] [place] [address] Discharge Disposition: Discharged to home or Selfcare [...] on file 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 02/02/2023 ALPRAZolam (XANAX) 1 MG Tablet Take by mouth as needed. carvedilol (COREG) 3.125 MG Tablet Take 1 Tablet by mouth 2 times daily. 180 Tablet 3 02/17/2023 Continuous Blood Gluc Fish Drier (Dexcom G7 Fish Drier) Device Check blood glucose before each meal and at bedtime 1 Each 06/01/2023 Enulose 10 GM/15ML Solution Take 30 mL by mouth 4 times daily. 12/31/2023 ergocalciferol (VITAMIN D) 96135 UNIT Capsule Take 50,000 Units by mouth. famotidine (PEPCID) 20 MG Tablet Take 1 Tablet by mouth 2 times daily. famotidine (PEPCID) 20 MG Tablet Take 1 Tablet by mouth 2 times daily as needed for Heartburn. 30 Tablet 05/20/2023 Glucose Blood Strip 1 Strip by Does not apply route. 12/08/2018 HumaLOG KwikPen 100 UNIT/ML Solution Pen-injector 3 times daily (before meals). 02/02/2023 hydroCHLOROthiazi de 25 MG Tablet Take 25 mg by mouth daily. HYDROcodone-aceta minophen ([place]) 10-325 MG Tablet Take 1 Tablet by mouth every 6 hours as needed. HYDROcodone-aceta minophen (NORCO) 7.5-325 MG Tablet Take 10 Tablets by mouth three times a week. Insulin Pen Needle (B-D ULTRAFINE III SHORT PEN) 31G X 8 MM Misc 02/26/2021 Insulin Pen Needle (B-D ULTRAFINE III SHORT PEN) 31G X 8 MM Misc 1 Each by Subcutaneous route. 11/07/2020 Insulin Pen Needle ([place]) 32G X 4 MM Misc Inject 3 [...] 10 Tablet 05/20/2023 OneTouch Ultra Strip 02/02/2023 pregabalin (LYRICA) 200 MG Capsule Take 200 mg by mouth 2 times daily. rifAXIMin (XIFAXAN) 200 MG Tablet Take 550 mg by mouth 2 times daily. traZODone (DESYREL) 100 MG Tablet nightly. 02/02/2023 Trulicity 0.75 MG/0.5ML Solution Pen-injector injection 0.75 mg by Subcutaneous route once a week. 11/03/2023 Continuous Blood Gluc Sensor (Dexcom G7 Sensor) Misc Change sensor every 10 days. 9 Each 1 08/13/2023 documented as of this encounter Plan of Treatment Not on file documented as of this encounter Procedures Procedure Name Priority Date/Time Associated Diagnosis Comments XR ABDOMEN KUB FLAT PLATE Routine 01/07/2024 8:25 AM CDT Constipation, unspecified constipation type documented in this encounter Results * XR [...] 12:51 PM - Electronically signed by ??Kyle Tubbs M.D. VIRIDIANA: VIRIDIANA D: ??01/08/2024 12:51 PM T: ??01/08/2024 12:51 PM Report ID: [id number] Reading Location: ??[id number] Procedure Note Carl Tubbs MD - 01/08/2024 [...] 12:51 PM - Electronically signed by Kyle Tubbs M.D. VIRIDIANA: VIRIDIANA Report ID: [id number] Reading Location: [id number] IMPRESSION: No acute finding. There is a large amount of stool in the right colon. Riddhi Bello APRN, CNP IMG DIAGNOSTIC OR DERABLES Final Result documented in this encounter Visit Diagnoses Diagnosis Constipation, unspecified constipation type documented in this encounter Care Teams Field Service Coordinator Relationship Specialty Start Date End Date Braydon Pavon, [facility] [address] [place] [address] PCP - General Physician Counter Pocket Trimmer 06/22/18 Vikram Mora MD [address] [phone] Consulting Physician Endocrinology 05/21/23 Riddhi Bello APRN, CNP [address] [place] [address] Nurse Practitioner Advanced Practice Nurse 02/10/23 documented as of this encounter
--- OUTSIDE RECORDS SUMMARY | 2024-04-19 23:02 | XMS_ITS | Encounter Summary ---
Author Organization [facility] Address [address] 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) Procedures GASTRO PROCEDURE Riddhi Bello APRN, CNP [address] [place] [address] Phone: tel: fax: Referral ID Status Reason Start Date Expiration Date Visits Re quested Visits Authorized [id number] Closed 02/17/2023 1 1 Reason for Visit * Reason Onset Date Comments Procedure 02/10/2023 Encounter Details Date Type Department Care Team (Late Contact Info) Description 02/10/2023 Telephone [facility] - Gastroenterology - [address] [place] [phone] Riddhi Bello APRN, REACTOR TECHNICIAN [address] [place] [address] Procedure Social History Tobacco Use Types Packs/Day Years Used Date Smoking Tobacco: Former Cigarettes Q uit: 2002 Smokeless Tobacco: Never Alcohol Use Standard Drinks/Week Comments Not Currently 0 (1 standard drink = 0.6 oz pur e alcohol) Sexually Active Control Partners Comments Yes Female Sex and Gender Information Value Date Recorded Sex Assigned at Not on file 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 No / Unsure 02/26/2023 8:15 AM CDT documented as of this encounter Miscellaneous Notes * Telephone Encounter - Bridgett Mccartney CMA - 02/26/2023 3:01 PM CDT Patient called and schedued * Addendum Note - Blake Sorenson RN - 02/17/2023 1:48 PM CDTAddended by: BLAKE SORENSON on: 02/17/2023 01:48 PM Modules accepted: Orders * Telephone Encounter - Blake Sorenson RN - 02/17/2023 1:47 PM CDT Patient is aware and verbalizes understanding. Coreg order placed. Educated patient about low blood pressure and signs and symptoms. Patient reports his sister is a hospice nurse and she can help check his bp. * Telephone Encounter - Riddhi Bello APRN, REACTOR TECHNICIAN - 02/17/2023 11:48 AM CDT Coreg 3.125 mg BID. #90 with 3 refills. If he has a blood pressure cuff at home have him check his blood pressures after starting. If BP gets low call the office * Addendum Note - Blake Sorenson RN - 02/17/2023 11:16 AM CDTAddended by: BLAKE SORENSON on: 02/17/2023 11:16 AM Modules accepted: Orders * Telephone Encounter - Blake Sorenson RN - 02/17/2023 10:54 AM CDT Patient is aware and verbalizes understanding. Please advise on coreg dose. EGD order placed. Routing to [facility] for EGD and colonoscopy scheduling. U/s and doppler of TIPPS along with clinical documentation faxed to [facility]. Fax successful. * Telephone Encounter - Blake Sorenson RN - 02/16/2023 4:15 PM CDT Left message to call back. Will fax ultrasound/doppler for TIPPS to [facility] after reviewing with patient. Please review message below. * Telephone Encounter - Riddhi Bello APRN, CNP - 02/12/2023 11:21 AM CDT Discussed with Dr. Hollingsworth and he is also recommending getting an EGD and starting him on coreg as he is not on a beta archie. If patient is in agreement then we can get the EGD ordered. * Telephone Encounter - Blake Sorenson RN - 02/12/2023 11:08 AM CDT Spoke with Janette in ultrasound at [facility], they do not do protal doppler for TIPPS, they only check portal doppler for patency. * Telephone Encounter - Blake Sorenson RN - 02/12/2023 9:38 AM CDT Spoke with Riddhi Dee NP, message left for [facility] to see if they do portal dopplers for TIPPS. * Telephone Encounter - Blake Sorenson RN - 02/10/2023 1:55 PM CDT Patient seen in office, per Riddhi Dee NP, patient is needing an ultrasound/doppler of his TIPS. Patient will not go to [facility] or [facility]. He will go to [facility]. 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
--- OUTSIDE RECORDS SUMMARY | 2024-04-19 23:02 | XMS_ITS | Encounter Summary ---
Author Organization [facility] Address [address] [place] [address] Phone Care Team Providers Care Info Print Press Operator Name Role Phone Braydon Pavon Kunal NEAL Primary Care Provider [phone] Riddhi Bello APRN, INSURANCE AGENTS SUPERVISOR Unavailable Reason for Visit * Auth/Cert (Routine) Specialty Diagnoses / Procedures Referred By Jordan casillas Referred To Contact Diagnoses ESOPHAGEAL VARICES, HISTORY OF COLON POLYPS Procedures EGD COLONOSCOPY Referral ID Status Reason Start Date Expiration Date Visits Re quested Visits Authorized [id number] 1 1 Encounter Details Date Type Department Care Team (Late st Contact Info) Description 03/24/2023 6:25 AM VIDEOTAPE OPERATOR Ancillary Procedure [facility] [address] [place] [address] Ac Berger MD 2 [facility] [address] [place] [address] Provider, Anesthesiologist Social History Tobacco Use Types Packs/Day Years Used Date Smoking Tobacco: Former Cigarettes Q uit: 2002 Smokeless Tobacco: Never Alcohol Use Standard Drinks/Week Comments Not Currently 0 (1 standard drink = 0.6 oz pur e alcohol) Sexually Active Control Partners Comments Yes Female Sex and Gender Information Value Date Recorded Sex Assigned at Not on file Legal Sex Male 10:58 AM VIDEOTAPE OPERATOR Gender Identity Not on file Sexual [...] Name Priority Date/Time Associated Diagnosis Comments GI IMAGING - COLONOSCOPY Routine 03/24/2023 6:23 AM VIDEOTAPE OPERATOR documented in this encounter Results * GI IMAGING - COLONOSCOPY (03/24/2023 6:23 AM VIDEOTAPE OPERATOR) us Ac Berger MD IMG DIAGNOSTIC ORDERABLES Final Result documented in this encounter Visit Diagnoses Not on filedocumented in this encounter Care Teams Info Print Press Operator Relationship Specialty Start Date End Date Braydon Pavon PAC [address] [place] [address] PCP - General Physician Forging Dies Final Finisher 06/22/18 Riddhi Bello APRN, INSURANCE AGENTS SUPERVISOR [address] [place] [address] Nurse Practitioner Advanced Practice Nurse 02/10/23 documented as of this encounter
--- OUTSIDE RECORDS SUMMARY | 2024-04-19 23:02 | XMS_ITS | Encounter Summary ---
Author Organization [facility] Address [address] 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 Patient no longer sees dr. Mora. See August office note. documented in this encounter Plan of Treatment Not on file documented as of this encounter Visit Diagnoses Not on filedocumented in this encounter Care Teams Spray Drier Operator Relationship Specialty Start Date End Date Braydon Pavon, [facility] [address] [place] [address] PCP - General Physician Senior It Architect 06/22/18 Vikram Mora MD [address] [phone] Consulting Physician Endocrinology 05/21/23 Riddhi Bello APRN, ANIMAL CARE WORKER [address] [place] [address] Nurse Practitioner Advanced Practice Nurse 02/10/23 documented as of this encounter
--- OUTSIDE RECORDS SUMMARY | 2024-04-19 23:02 | XMS_ITS | Encounter Summary ---
Author Organization [facility] Address [address] 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 Continuous Blood Gluc Sensor (Dexcom G7 Sensor) Misc 9 Each 1 Sig: Change sensor every 10 days. Authorizing Provider: VIKRAM MCLEAN Ordering User: BLAKE GARRETT Requesting a 90 day supply. CONDITIONER HELPER documented in this encounter Plan of Treatment Not on file documented as of this encounter Visit Diagnoses Not on filedocumented in this encounter Care Teams Wilton Weaver Relationship Specialty Start Date End Date Braydon Pavon PAC [address] [place] [address] PCP - General Physician Tennis Coach 06/22/18 Vikram Mclean MD [address] [phone] Consulting Physician Endocrinology 05/21/23 Riddhi Bello APRN, COLLECTIONS OFFICER [address] [place] [address] Nurse Practitioner Advanced Practice Nurse 02/10/23 documented as of this encounter
--- OUTSIDE RECORDS SUMMARY | 2024-04-19 23:02 | XMS_ITS | Encounter Summary ---
Author Organization [facility] Address [address] [place] [address] Phone Care Team Providers Care Mail Caller Name Role Phone Librado Braydon Kunal NEAL Primary Care Provider [phone] Riddhi Bello APRN, NURSE SANE Unavailable Reason for Referral * Medical Care (Less Than 1 Week) - Closed Specialty Diagnoses / Procedures Referred By Contwinnie t Referred To Contact Nephrology Diagnoses Renal lesion Procedures OFFICE/OP NEW LVL 3 LOW MDM/30-44 MIN OFFICE/OP EST LVL 3 LOW MDM/20-29 MIN Riddhi Bello APRN, NURSE SANE [address] [place] [address] Phone: tel: fax: EXTERNAL LOCATION NOT ON FILE Referral ID Status Reason Start Date Expiration Date Visits Re quested Visits Authorized [id number] Closed 03/23/2023 1 11 Scheduling Instructions Camilo is being referred to nephrology or other specialist in patient's insurance network for kidney lesion on recent ultrasound doppler of TIPPS at [facility]. See below for Camilo's current medications, allergies and problem list. CURRENT MEDS: Current Outpatient Medications: albuterol 108 (90 Base) MCG/ACT Aerosol Solution, every 4 hours as needed., Disp: , Rfl: ALPRAZolam (XANAX) 1 MG Tablet, Take by mouth as needed., Disp: , Rfl: carvedilol (COREG) 3.125 MG Tablet, Take 1 Tablet by mouth 2 times daily., Disp: 180 Tablet, Rfl: 3 ergocalciferol (VITAMIN D) 05209 UNIT Capsule, Take 50,000 Units by mouth. [...] Disp: , Rfl: Insulin Pen Needle (Pen [place]) 32G X 4 MM Misc, Inject 3 [...] Pen-injector, once a week., Disp: , Rfl: No current facility-administered medications [...] Gallstones Biliary colic Hepatic encephalopathy (HCC) Hypertension TRIC METER TECHNICIAN Encounter Details Date Type Department Care Team (Late st Contact Info) Description 03/17/2023 Telephone [facility] - Gastroenterology - [place] [address] [place] [address] Riddhi Bello APRN, [place] [address] [place] [address] Social History Tobacco Use Types Packs/Day Years Used Date Smoking Tobacco: Former Cigarettes Q uit: 2002 Smokeless Tobacco: Never Alcohol Use Standard Drinks/Week Comments Not Currently 0 (1 standard drink = 0.6 oz pur e alcohol) Sexually Active Control Partners Comments Yes Female Sex and Gender Information Value Date Recorded Sex Assigned at Not on file Legal Sex Male 10:58 AM ELECTRIC METER TECHNICIAN Gender Identity Not on file Sexual Orientation Not on file COVID-19 Exposure Response Date Recorded In the last 10 days, have yo u been in contact with someone who was confirmed or suspected to have Coronavirus/COVID-19? No / Unsure 02/26/2023 8:15 AM CDT documented as of this encounter Miscellaneous Notes * Addendum Note - Blake Sorenson RN - 03/23/2023 3:32 PM CSTAddended by: BLAKE SORENSON on: 03/23/2023 03:32 PM Modules accepted: Orders TRIC METER TECHNICIAN * Telephone Encounter - Blake Sorenson RN - 03/23/2023 3:21 PM ELECTRIC METER TECHNICIAN Reviewed message with patient. Patient states that it was every 3 months they checked the TIPPS doppler. Recall placed. 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 He would like to be seen at [facility] or [facility] if [facility] doesn't take his insurance. External nephrology referral placed. TRIC METER TECHNICIAN TRIC METER TECHNICIAN * Addendum Note - Blake Sorenson RN - 03/23/2023 3:10 PM CSTAddended by: BLAKE SORENSON on: 03/23/2023 03:10 PM Modules accepted: Orders TRIC METER TECHNICIAN * Telephone Encounter - Blake Sorenson RN - 03/23/2023 2:51 PM ELECTRIC METER TECHNICIAN Patient is aware and verbalizes understanding. Patient states that he would have to be asleep for the MRI. He is allergic to iodinated contrast. He states if MRI with sedation is not able to be approved or done he would consider doing MRI with po sedation. Attempted to place MRI liver. Reviewed US TIPS ultrasound with Analisa Bello CAST SHELL GRINDER, patient can be referred to nephrology for kidney lesion on U/S Tips. Per Analisa Bello CAST SHELL GRINDER, ok to hold on MRI with liver protocol till patient is evaluated for kidney lesion. Per Riddhi Dee CAST SHELL GRINDER, verify if patient was getting TIPPS checked every 3 months. Will ask patient how often he gets TIPPS dopplers and will place recall. Called patient. Left message for patient to call back. TRIC METER TECHNICIAN TRIC METER TECHNICIAN TRIC METER TECHNICIAN * Telephone Encounter - Riddhi Bello APRN, CNP - 03/18/2023 12:19 PM CST Ultrasound report reviewed. We will need to watch the Tips closely. It is patent at this time but the velocity of the flow is slightly decreased It would be recommended to have the liver protocol MRI. We can offer medication for sedation once this is scheduled. TRIC METER TECHNICIAN * Telephone Encounter - Blake Sorenson RN - 03/17/2023 4:05 PM ELECTRIC METER TECHNICIAN Patient calling and reporting he had the doppler at [facility] for his TIPPS. Report noted in [facility] on 03/04/2023 at [facility]. Patient reports if he has to have an MRI for a follow on a lesion, he did read the report on his mychart, he will need sedation. Please review and advise. TRIC METER TECHNICIAN documented in this encounter Plan of Treatment Scheduled Referrals Name Type Priority Associated Diagnoses Order Schedule EXTERNAL NEPHROLOGY REFERRAL Outpatient Referral Less Than 1 week Renal lesion Expected: 03/23/2023, Expires: 03/23/2024 documented as of this encounter Visit Diagnoses Diagnosis Renal lesion- Primary Unspecified disorder of kidney and ureter documented in this encounter Care Teams Mail Caller Relationship Specialty Start Date End Date Braydon Pavon PAC [address] [place] [address] PCP - General Physician Event Management Consultant 06/22/18 Riddhi Bello APRN, NURSE SANE [address] [place] [address] Nurse Practitioner Advanced Practice Nurse 02/10/23 documented as of this encounter
--- OUTSIDE RECORDS SUMMARY | 2024-04-19 23:02 | XMS_ITS | Clinical Summary ---
Author Organization [facility] Address [address] [place] [address] Phone Care Team Providers Care Wardrobe Technician Name Role Phone Braydon Pavon VAL Primary Care Provider [phone] Vikram Mora MD Unavailable Riddhi Bello APRN, SEARCH SPECIALIST Unavailable Allergies Active Allergy Reactions Criticality Noted Date Comments Aztreonam In Dextrose Unknown 07/21/2018 Aztreonam Unknown 07/21/2018 Ciprofloxacin Hcl Unknown 07/21/2018 Duloxetine Hcl Unknown 07/21/2018 Erythromycin Unknown 07/21/2018 Iodinated Contrast Media Swelling,Rash Medium 02/03/20 18 Esomeprazole Magnesium Unknown 07/21/2018 Octreotide Unknown 07/21/2018 Penicillins Unknown 07/21/2018 Sulfa Antibiotics Unknown 07/21/2018 Wound Dressing Adhesive Other (see Comments) Tape - Blisters Medications Omeprazole 20 MG Tablet Delayed Response Take 20 mg by mouth daily. Active ondansetron (ZOFRAN) 4 MG Tablet Take 4 mg by mouth every 8 hours as needed. Active ALPRAZolam (XANAX) 1 MG Tablet Take by mouth as needed. Active rifAXIMin (XIFAXAN) 200 MG Tablet Take 550 mg by mouth 2 times daily. Active hydroCHLOROthia zide 25 MG Tablet Take 25 mg by mouth daily. Active OneTouch Ultra Strip 3 Active Glucose Blood Strip 1 Strip by Does not apply route. 9 Active HumaLOG KwikPen 100 UNIT/ML Solution Pen-injector 3 times daily (before meals). 3 Active Lantus SoloStar 100 UNIT/ML Solution Pen-injector every 12 hours. 50 units AM and 35 units HS 3 Active albuterol 108 (90 Base) MCG/ACT Aerosol Solution every 4 hours as needed. 3 Active ergocalciferol (VITAMIN D) 18364 UNIT Capsule Take 50,000 Units by mouth. Active Insulin Pen Needle (B-D ULTRAFINE III SHORT PEN) 31G X 8 MM Misc 1 Active Insulin Pen Needle (B-D ULTRAFINE III SHORT PEN) 31G X 8 MM Misc 1 Each by Subcutaneous route. 1 Active Insulin Pen Needle (Pen [place]) 32G X 4 MM Misc Inject 3 times daily 0 Active traZODone (DESYREL) 100 MG Tablet nightly. 3 Active carvedilol (COREG) 3.125 MG Tablet Take 1 Tablet by mouth 2 times daily. 180 Tablet 3 3 Active HYDROcodone-bella taminophen (NORCO) 7.5-325 MG Tablet Take 10 Tablets by mouth three times a week. Active famotidine (PEPCID) 20 MG Tablet Take 1 Tablet by mouth 2 times daily as needed for Heartburn. 30 Tablet 4 Active ondansetron (ZOFRAN-ODT) 4 MG TABLET DISPERSIBLE Take 1 Tablet by mouth every 8 hours as needed for Nausea - 1st line. 10 Tablet 4 Active Continuous Blood Gluc Assistant Plant Controller (Dexcom G7 Assistant Plant Controller) Device Check blood glucose before each meal and at bedtime 1 Each 4 Active HYDROcodone-bella taminophen ([place]) 10-325 MG Tablet Take 1 Tablet by mouth every 6 hours as needed. Active Trulicity 0.75 MG/0.5ML Solution Pen-injector injection 0.75 mg by Subcutaneous route once a week. 4 Active pregabalin (LYRICA) 200 MG Capsule Take 200 mg by mouth 2 times daily. Active Enulose 10 GM/15ML Solution Take 30 mL by mouth 4 times daily. 4 Active famotidine (PEPCID) 20 MG Tablet Take 1 Tablet by mouth 2 times daily. Active Continuous Glucose Sensor (Dexcom G7 Sensor) Misc CHANGE SENSOR EVERY 10 DAYS 9 Each 4 Active Active Problems Problem Noted Date Diagnosed Date Type 2 diabetes mellitus wit h diabetic polyneuropathy, with long-term current use of insulin 06/03/2023 BLAND (nonalcoholic steatohepatitis) 07/21/2018 Esophageal varices 07/21/2018 Gallstones 07/21/2018 Biliary colic 07/21/2018 Hepatic encephalopathy 07/21/2018 Hypertension 07/21/2018 Sacroiliac joint dysfunction of both sides 07/19 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-sided sc iatica 07/19/2018 Encounters Date Type Department Care Team Description 02/01/2024 Refill [facility] - Endocrinology - [place] [address] [place] [address] Vikram Mora MD Medication Refill from Last 3 Months Immunizations Immunization Administration Dates Next Due Hepatitis A And Hepatitis B Vaccine 09/10/2015 Hepatitis B Vaccine 11/09/2015 Family History Medical History Relation Name Comments Cancer Father Cancer Mother Ovarian Cancer Mother Relation Name Status Comments Father Mother Social History Tobacco Use Types Packs/Day Years [...] on file Legal Sex Male 10:58 AM REGISTRATION REPRESENTATIVE Gender Identity Not on file Sexual Orientation [...] Mass Index 34.5 01/07/2024 8:47 AM CDT Plan of Treatment Health Maintenance Due Date Last Done Comments Diabetes: Eye Exam 1970 Hepatitis C Virus (HCV) Screening 1970 TdaP Immunization 1970 Pneumococcal Immunization Combined (1 of 2 - PCV) 1976 Hepatitis B Immunization (3 of 3 - 19+ 3-dose series) 03/12/2016 11/09/2015, 09/10/2015 Cologuard 2020 Immunochemical Fecal Occult Blood 2020 Zoster Immunization (1 of 2) 2020 Influenza Immunization (#1) 2024 SARS-COV-2 Immunization ( - season) 2024 12/29/2020, 12/08/2020 Diabetes: Hemoglobin A1c 05/25/2024 024, 05/20/2023, 02/10/2023, Additional history exists Diabetes: Foot Exam 06/01/2024 06/01/2023 Diabetes: Nephropathy Screening 11/12/2024 11/13/2023, 05/29/2023, 05/20/2023, Additional history exists Colonoscopy 03/24/2028 03/24/2023, 12/02, 05/03/2005 Colorectal Cancer Screening 03/24/2028 Respiratory Syncytial Virus (RSV) Immunization (Adult) (1 - 1-dose 75+ series) 2045 03/24/2023, 12/02, 05/03/2005 Meningococcal Immunization (ACWY) Aged Out No longer eligible based on patient's age to complete this topic Rotavirus Immunization Aged Out No lo nger eligible based on patient's age to complete this topic Procedures Procedure Name Priority Date/Time Associated Diagnosis Comments CMP (COMPREHENSIVE METABOLIC PANEL) STAT 11/13/2023 6:40 PM CDT HEMOGLOBIN A1C W/ ESTIMATED GLUCOSE STAT 05/20/2023 10:44 AM REGISTRATION REPRESENTATIVE from Last 3 Months or Most Recently Relevant to Health Maintenance Results * (ABNORMAL) CMP (Comprehensive Metabolic Panel) (11/13/2023 6:40 PM CDT) SODIUM 139 136 - 145 mmol/L 11/13/2023 7:25 PM CDT [facility] POTASSIUM 3.7 3.5 - 5.1 mmol/L 11/13/2023 7:25 PM CDT [facility] CHLORIDE 105 98 - 107 mmol/L 11/13/2023 7:25 PM CDT [facility] CO2, VENOUS 24 22 - 30 mmol/L 11/13/2023 7:25 PM CDT [facility] ANION GAP 13.7 <18.0 mmol/L 11/13/2023 7:25 PM CDT [facility] GLUCOSE 188(H) 70 - 99 mg/dL 11/13/2023 7:25 PM CDT [facility] BUN 11 8 - 26 mg/dL 11/13/2023 7:25 PM CDT [facility] CREATININE, BLOOD 0.84 0.70 - 1.30 mg/dL 11/13/2023 7:25 PM CDT [facility] BUN/CREATININE RATIO 13 12 - 20 ratio 11/13/2023 7:25 PM CDT [facility] TOTAL PROTEIN 7.3 6.3 - 8.2 g/dL 11/13/2023 7:25 PM CDT [facility] ALBUMIN 3.9 3.5 - 5.0 g/dL 11/13/2023 7:25 PM CDT [facility] A/G RATIO 1.1 1.0 - 2.2 11/13/2023 7:25 PM CDT [facility] CALCIUM 9.4 8.7 - 10.5 mg/dL 11/13/2023 7:25 PM CDT [facility] T BILI 3.6(H) 0.2 - 1.2 mg/dL 11/13/2023 7:25 PM CDT [facility] SGOT (AST) 27 5 - 34 U/L 11/13/2023 7:25 PM CDT [facility] SGPT (ALT) 17 0 - 55 U/L 11/13/2023 7:25 PM CDT [facility] ALKALINE PHOSPHATASE 90 40 - 150 U/L 11/13/2023 7:25 PM CDT [facility] GFR, ESTIMATED >60 >=60 11/13/2023 7:25 PM CDT [facility] Comment: Creatinine Clearance is the preferred criteria for selecting drug dose adjustments in renally impaired patients. ??The GFR is provided as additional pertinent clinical information. GFR is reported in mL/min/1.73 sq m. Calculation based on the Chronic Kidney Disease Epidemiology Collaboration (CKD- EPI) equation refit without adjustment for race. GFR, EST. >60 >=60 024 7:25 PM CDT [facility] GFR, EST. NONAFRICAN >60 >=60 11/13/2023 7:25 PM CDT [facility] Blood Venipuncture / Unknown 11/13/2023 6:40 PM CDT 11/13/2023 7:00 PM CDT us Lul Junior DO CHEMISTRY ORDERABLES Fi nal Result [facility] [address] [place] [address] * (ABNORMAL) Hemoglobin A1C (05/20/2023 10:44 AM REGISTRATION REPRESENTATIVE) HGB-A1C 11.6(H) 4.0 - 6.0 % 05/20/2023 12:30 PM REGISTRATION REPRESENTATIVE [facility] Est Average Glucose 286.2 mg/dL 05/20/2023 12:30 PM REGISTRATION REPRESENTATIVE [facility] Blood Venipuncture / Unknown 05/20/2023 10:44 AM REGISTRATION REPRESENTATIVE 05/20/2023 11:01 AM REGISTRATION REPRESENTATIVE Narrative [facility] - 05/20/2023 12:30 PM REGISTRATION REPRESENTATIVE HEMOGLOBIN A1C: DIABETIC PATIENTS: WELL-CONTROLLED: ?? 6.2 - 7.0 INTERMEDIATE WELL-CONTROLLED: ??7.0 - 9.0 POORLY-CONTROLLED: ??>9.0 Felicitas Luz FOOTWEAR SALES ASSOCIATE, SEARCH SPECIALIST CHEMISTRY ORDERABLES Final Result [facility] [address] [facility] [place] [address] from Last 3 Months or Most Recently Relevant to Health Maintenance Insurance * Guarantor: Camilo Curry Account Type Relation to Patient Date of Phone Billing Address Personal/Family Self 1970 [address] [place] [address] MEDICAID [employer] [facility] [place] [employer] Care Teams Wardrobe Technician Relationship Specialty Start Date End Date Braydon Pavon, VAL [address] [place] [address] PCP - General Physician Hotel Operation Manager 06/22/18 Vikram Mora MD [address] [address] Consulting Physician Endocrinology 05/21/23 Riddhi Bello APRN, SEARCH SPECIALIST [address] [place] [address] Nurse Practitioner Advanced Practice Nurse 02/10/23
--- OUTSIDE RECORDS SUMMARY | 2024-04-19 23:02 | XMS_ITS | Encounter Summary ---
Author Organization [facility] Address [address] [place] [address] Phone Care Team Providers Care Bilingual Social Worker Name Role Phone BebeabBraydon Primary Care Provider Riddhi Bello APRN, TEACHER LIP READING Unavailable Reason for Visit * Reason Onset Date Comments Referral 05/12/2023 Encounter Details Date Type Department Care Team (Late st Contact Info) Description 05/12/2023 Telephone [facility] - Gastroenterology - [place] [address] [place] [address] Riddhi Bello APRN, TEACHER LIP READING [address] [place] [address] Referral Social History Tobacco Use Types Packs/Day Years Used Date Smoking Tobacco: Former Cigarettes Q uit: 2002 Smokeless Tobacco: Never Alcohol Use Standard Drinks/Week Comments Not Currently 0 (1 standard drink = 0.6 oz pur e alcohol) Sexually Active Control Partners Comments Yes Female Sex and Gender Information Value Date Recorded Sex Assigned at Not on file Legal Sex Male 10:58 AM LABORER ELECTROPLATING Gender Identity Not on file Sexual Orientation Not on file documented as of this encounter Miscellaneous Notes * Telephone Encounter - Brianna Sorenson RN - 05/12/2023 4:15 PM LABORER ELECTROPLATING Patient called office and reported that he called the nephrology office at [facility] and they said thereferral got denied due to patient should see urology. If his creatnine was elevated he could see nephrology. Patient has an appt on 05/18/2023 with provider. Please advise. RER ELECTROPLATING documented in this encounter Plan of Treatment Not on file documented as of this encounter Visit Diagnoses Not on filedocumented in this encounter Care Teams Bilingual Social Worker Relationship Specialty Start Date End Date Braydon Pavon PAC [address] [place] [address] PCP - General Physician Tinner Automatic 06/22/18 Riddhi Bello APRN, TEACHER LIP READING [address] [place] [address] Nurse Practitioner Advanced Practice Nurse 02/10/23 documented as of this encounter
--- OUTSIDE RECORDS SUMMARY | 2024-04-19 23:02 | XMS_ITS | Encounter Summary ---
Author Organization [facility] Address [address] [place] [address] Phone Care Team Providers Care Improvement Advisor Name Role Phone Janeth Pavon Kunal NEAL Primary Care Provider [phone] Riddhi Bello APRN, SCIENTIST ELECTRONICS Unavailable Reason for Referral * Radiology Services (Routine) - Closed Specialty Diagnoses / Procedures Referred By Jordan casillas Referred To Contact Radiology Procedures GI LAB IMAGING - EGD Ac Berger MD [address] [address] Phone: tel: fax: Referral ID Status Reason Start Date Expiration Date Visits Re quested Visits Authorized [id number] Closed 03/24/2023 1 1 GER MOBILITY * Radiology Services (Routine) - Closed Specialty Diagnoses / Procedures Referred By Jordan casillas Referred To Contact Radiology Procedures GI IMAGING - COLONOSCOPY Ac Berger MD [address] [address] Phone: tel: fax: Referral ID Status Reason Start Date Expiration Date Visits Re quested Visits Authorized [id number] Closed 03/24/2023 1 1 GER MOBILITY Reason for Visit * Auth/Cert (Routine) Specialty Diagnoses / Procedures Referred By Jordan casillas Referred To Contact Diagnoses ESOPHAGEAL VARICES, HISTORY OF COLON POLYPS Procedures EGD COLONOSCOPY Referral ID Status Reason Start Date Expiration Date Visits Re quested Visits Authorized [id number] 1 1 Encounter Details Date Type Department Care Team (Latest Contact Info) Description 03/24/2023 6:19 AM MANAGER MOBILITY - 03/24/2023 9:08 AM MANAGER MOBILITY Hospital Encounter [facility] GI Lab Preop/Pacu II [address] [place] [address] Ac Berger MD 2 [facility] [address] [place] [address] Discharge Disposition: Discharged to home or Selfcare [...] file Legal Sex Male 10:58 AM MANAGER MOBILITY Gender Identity Not on file Sexual Orientation Not on file COVID-19 Exposure Response Date Recorded In the last 10 days, have yo u been in contact with someone who was confirmed or suspected to have Coronavirus/COVID-19? No / Unsure 02/26/2023 8:15 AM CDT documented as of this encounter Last Filed Vital Signs Vital Sign Reading Time Taken Comments Blood Pressure 132/83 03/24/2023 8:36 AM MANAGER MOBILITY Pulse 88 03/24/2023 8:36 AM MANAGER MOBILITY Temperature 36 ??C (96.8 ??F) 03/24/2023 6:48 AM MANAGER MOBILITY Respiratory Rate 20 03/24/2023 8:36 AM MANAGER MOBILITY Oxygen Saturation 100% 03/24/2023 8:36 AM MANAGER MOBILITY Inhaled Oxygen Concentration - - Weight 97.5 kg (215 lb) 02/27/2023 3:04 PM CDT Height 172.7 cm (5' 8 ) 02/27/2023 3:04 PM CDT Body Mass Index 32.69 02/27/2023 3:04 PM CDT documented in this encounter Discharge Instructions * Discharge Instructions* Felicitas Florentino RN - 03/24/2023 8:11 AM MANAGER MOBILITY You had a colonoscopy today. Dr. Berger [...] WORK, UNLESS INSTRUCTED OTHERWISE. Call doctor's office ([phone]) or go to Emergency room for: Difficulty Breathing, Headache Or Visual Disturbances Persistent Dizziness Or Light-Headedness Persistent Nausea and Vomiting Temperature greater then 100.0 Significant abdominal pain, chest pain, or bleeding. Here at [facility] we strive to provide excellent care to [...] envelope is provided. Thank you for choosing [facility]. GER MOBILITY GER MOBILITY documented in this encounter Medications at Time of Discharge albuterol 108 (90 Base) MCG/ACT Aerosol Solution every 4 hours as needed. 02/02/2023 ALPRAZolam (XANAX) 1 MG Tablet Take by mouth as needed. carvedilol (COREG) 3.125 MG Tablet Take 1 Tablet by mouth 2 times daily. 180 Tablet 3 02/17/2023 ergocalciferol (VITAMIN D) 47778 UNIT Capsule Take 50,000 Units by mouth. [...] Subcutaneous route. 11/07/2020 Insulin Pen Needle (Pen Mauldin) 32G X 4 MM Misc Inject 3 [...] procedure. Ac Berger MD 03/24/2023 7:34 AM MANAGER MOBILITY GER MOBILITY documented in this encounter OR Notes * [...] Surgeon: Ac Berger MD, 03/24/2023, 8:07 AM MANAGER MOBILITY Primary Care Physician: JANETH PAVON, PAC GER MOBILITY * OR Surgeon - Ac Berger MD [...] Surgeon: Ac Berger MD, 03/24/2023, 7:41 AM MANAGER MOBILITY Primary Care Physician: JANETH PAVON, PAC GER MOBILITY documented in this encounter Miscellaneous Notes * [...] Transition of Care Outcome: Ongoing (see interventions/notes) GER MOBILITY * Niru - Lyric Dudley RN - 02/27/2023 3:05 PM CDT [facility] GI TEACHING Patient Name: Camilo Curry : 1970 CSN#: [id number] Person Educated Patient Ready to Learn Yes [...] for your procedure as instructed by the [facility] GI Lab. Go to Registration the morning [...] be allowed to accompany you to the [facility]. No children under the age of 16 will be allowed in the [facility] unless they are the patient. If the [...] up in case you forget to use your call light ??? -Stay in the bathroom with you in case you become dizzy or light headed Response to Teaching: Verbalizes Understanding Patient assessed for sign language interpreter during the preop interview and appropriate interventions taken if applicable. documented in this encounter Plan of Treatment Not on file documented as of this encounter Procedures Procedure Name Priority Date/Time Associated Diagnosis Comments CBC WITH AUTO DIFFERENTIAL STAT 03/24/2023 9:01 AM MANAGER MOBILITY PROTIME (PT) (PROTHROMBIN TIME) STAT 03/24/2023 9:01 AM MANAGER MOBILITY CMP (COMPREHENSIVE METABOLIC PANEL) STAT 03/24/2023 9:01 AM MANAGER MOBILITY COMPLETE BLOOD COUNT (CBC) WITH DIFF STAT 03/24/2023 9:01 AM MANAGER MOBILITY PATHOLOGY SURGICAL Routine 03/24/2023 8: 03 AM MANAGER MOBILITY COLONOSCOPY 03/24/2023 7:31 AM MANAGER MOBILITY EGD-PORTAL HYPERTENSIVE GASTROPATHY, GRADE ONE ESOPHAGEAL VARCIESCOLONOSCOPY-C ECAL POLYP REMOVED BY HOT SNARE, DIVERTICULOSIS Special Needs DM, DOUBLE PREP - Dx varices/polyps EGD 03/24/2023 7:31 AM MANAGER MOBILITY EGD-PORTAL HYPERTENSIVE GASTROPATHY, GRADE ONE ESOPHAGEAL VARCIESCOLONOSCOPY-C ECAL POLYP REMOVED BY HOT SNARE, DIVERTICULOSIS Special Needs DM, DOUBLE PREP - Dx varices/polyps POCT GLUCOSE Routine 03/24/2023 6:41 AM MANAGER MOBILITY GI LAB IMAGING - EGD Routine 03/24/2023 6:23 AM MANAGER MOBILITY GI IMAGING - COLONOSCOPY Routine 03/24/2023 6:23 AM MANAGER MOBILITY documented in this encounter Results * (ABNORMAL) CBC with Auto Differential (03/24/2023 9:01 AM MANAGER MOBILITY) WBC 3.75(L) 4.00 - 12.00 10(3)/mcL 03/24/2023 9:33 AM MANAGER MOBILITY [facility] RBC 5.77 4.40 - 5.80 10(6)/mcL 03/24/2023 9:33 AM MANAGER MOBILITY [facility] HEMOGLOBIN (HGB) 13.2 13.0 - 16.5 g/dL 03/24/2023 9:33 AM MANAGER MOBILITY [facility] HEMATOCRIT (HCT) 42.5 38.0 - 50.0 % 03/24/2023 9:33 AM MANAGER MOBILITY [facility] MCV 73.7(L) 82.0 - 96.0 fL 03/24/2023 9:33 AM MANAGER MOBILITY [facility] MCH 22.9(L) 26.0 - 32.0 pg 03/24/2023 9:33 AM MANAGER MOBILITY [facility] MCHC 31.1 31.0 - 36.0 g/dL 03/24/2023 9:33 AM MANAGER MOBILITY [facility] PLATELET COUNT 90(L) 140 - 440 10(3)/[facility] 03/24/2023 9:33 AM [facility] RDW 17.3(H) 11.8 - 15.5 % 03/24/2023 9:33 AM [facility] MPV 10.4 8.0 - 12.6 fL 03/24/2023 9:33 AM MANAGER MOBILITY [facility] NEUTROPHILS 70.2(H) 40.0 - 68.0 % 03/24/2023 9:33 AM [facility] LYMPHOCYTES 16.8(L) 19.0 - 49.0 % 03/24/2023 9:33 AM [facility] MONOCYTES 8.0 3.0 - 13.0 % 03/24/2023 9:33 AM [facility] EOSINOPHILS 3.7 0.0 - 8.0 % 03/24/2023 9:33 AM [facility] BASOPHILS 1.3(H) 0.0 - 1.0 % 03/24/2023 9:33 AM [facility] ABSOLUTE NEUTROPHILS 2.63 1.40 - 5.30 10(3)/[facility] 03/24/2023 9:33 AM [facility] ABSOLUTE LYMPHOCYTES 0.63(L) 0.90 - 3.30 10(3)/[facility] 03/24/2023 9:33 AM [facility] ABSOLUTE MONOCYTES 0.30 0.10 - 0.90 10(3)/[facility] 03/24/2023 9:33 AM [facility] ABSOLUTE EOSINOPHIL 0.14 0.00 - 0.50 10(3)/[facility] 03/24/2023 9:33 AM [facility] ABSOLUTE BASOPHILS 0.05 0.00 - 0.10 10(3)/[facility] 03/24/2023 9:33 AM [facility] NRBC PER 100 WBC 0 03/24/20 9:33 AM [facility] RESULTS ARE CONSISTENT WITH PERIPHERAL SMEAR REVIEW Yes 03/24/2023 9:33 AM MANAGER MOBILITY [facility] Blood Venipuncture / Unknown 03/24/2023 9:01 AM MANAGER MOBILITY 03/24/2023 9:05 AM MANAGER MOBILITY Narrative [facility] - 03/24/2023 9:33 AM MANAGER MOBILITY microcytes Ac Berger MD HEMATOLOGY ORDERABLES Final Resu lt Performing Organization Address City/[facility] Co de Phone Number [facility] [address] [place] [address] * (ABNORMAL) PROTIME (PT) (PROTHROMBIN TIME) (03/24/2023 9:01 AM MANAGER MOBILITY) PROTIME-PATIENT 15.4(H) 11.6 - 14.8 sec 03/24/2023 9:20 AM MANAGER MOBILITY [facility] INR 1.2 0.9 - 1.2 03/24/2023 9:20 AM MANAGER MOBILITY [facility] Comment: Therapeutic Ranges INR = 2.0-3.0: Venous thromb, atrial fib, pul embolism, tissue heart valve, ami. INR = 2.5-3.5: Mechanical heart valve Critical value for INR is >/= 4.5 Blood Venipuncture / Unknown 03/24/2023 9:01 AM MANAGER MOBILITY 03/24/2023 9:05 AM MANAGER MOBILITY Ac Berger MD HEMATOLOGY ORDERABLES Final Resu lt Performing Organization Address City/[facility] Co de Phone Number [facility] [address] [place] [address] * (ABNORMAL) CMP (Comprehensive Metabolic Panel) (03/24/2023 9:01 AM MANAGER MOBILITY) Pathologist [facility] SODIUM 137 136 - 145 mmol/L 03/24/2023 9:29 AM MANAGER MOBILITY [facility] POTASSIUM 4.1 3.5 - 5.1 mmol/L 03/24/2023 9:29 AM [facility] CHLORIDE 104 98 - 107 mmol/L 03/24/2023 9:29 AM [facility] CO2, VENOUS 24 22 - 30 mmol/L 03/24/2023 9:29 AM [facility] ANION GAP 13.1 <18.0 mmol/L 03/24/2023 9:29 AM [facility] GLUCOSE 273(H) 70 - 99 mg/dL 03/24/2023 9:29 AM [facility] BUN 9 8 - 26 mg/dL 03/24/2023 9:29 AM [facility] CREATININE, BLOOD 0.79 0.70 - 1.30 mg/dL 03/24/2023 9:29 AM [facility] BUN/CREATININE RATIO 11(L) 12 - 20 ratio 03/24/2023 9:29 AM [facility] TOTAL PROTEIN 6.5 6.3 - 8.2 g/dL 03/24/2023 9:29 AM [facility] ALBUMIN 3.6 3.5 - 5.0 g/dL 03/24/2023 9:29 AM [facility] A/G RATIO 1.2 1.0 - 2.2 03/24/2023 9:29 AM [facility] CALCIUM 8.9 8.7 - 10.5 mg/dL 03/24/2023 9:29 AM [facility] T BILI 1.9(H) 0.2 - 1.2 mg/dL 03/24/2023 9:29 AM [facility] SGOT (AST) 26 5 - 34 U/L 03/24/2023 9:29 AM [facility] SGPT (ALT) 20 0 - 55 U/L 03/24/2023 9:29 AM [facility] ALKALINE PHOSPHATASE 90 40 - 150 U/L 03/24/2023 9:29 AM [facility] GFR, ESTIMATED >60 >=60 03/24/2023 9:29 AM [facility] Comment: Creatinine Clearance is the preferred criteria for selecting drug dose adjustments in renally impaired patients. ??The GFR is provided as additional pertinent clinical information. GFR is reported in mL/min/1.73 sq m. Calculation based on the Chronic Kidney Disease Epidemiology Collaboration (CKD- EPI) equation refit without adjustment for race. GFR, EST. >60 >=60 023 9:29 AM MANAGER MOBILITY [facility] GFR, EST. NONAFRICAN >60 >=60 03/24/2023 9:29 AM MANAGER MOBILITY [facility] Blood Venipuncture / Unknown 03/24/2023 9:01 AM MANAGER MOBILITY 03/24/2023 9:05 AM MANAGER MOBILITY us Ac Berger MD CHEMISTRY ORDERABLES Final Resul t [facility] [address] [place] [address] * Pathology Surgical (03/24/2023 8:03 AM MANAGER MOBILITY) Case Report Surgical Pathology Report ? Case: [id number] ? Authorizing Provider: ??Ac Berger MD ?Collected: ? 03/24/2023 08:03 AM ? [facility] Location[facility] ? [facility] ? Received: ?03/24/2023 09:32 AM ? [facility] ? Lab Main ? Pathologist: ? Angeles Ward MD PhD ? Specimen: ?Colon, CECAL POLYP ? 03/25/2023 8:20 AM [facility] FINAL DIAGNOSIS Cecal polyp, polypectomy: - Tubular adenoma 03/25/2023 8:20 AM [facility] Pre-Operative Diagnosis Esophageal varices, history of colon polyps 03/25/2023 8:20 AM [facility] Gross Description A. CECAL POLYP The [...] 13 hours, 43 minutes. 03/25/2023 8:20 AM [facility] Microscopic Description Microscopic examination was performed which supports the final diagnosis. All control tissues stained appropriately. 03/25/2023 8:20 AM [facility] Tissue COLON STRUCTURE / Unknown 03/24/2023 8:03 AM MANAGER MOBILITY 03/24/2023 9:32 AM MANAGER MOBILITY us Ac Berger MD PATHOLOGY/CYTOLOGY ORDERABLES Fi nal Result [facility] [address] [place] [address] * (ABNORMAL) POCT Glucose (03/24/2023 6:41 AM MANAGER MOBILITY) GLUCOSE,BEDSID E POCT 254(H) 70 - 99 mg/dL 03/24/2023 6:47 AM MANAGER MOBILITY [facility] Comment:Patient RN Performed Blood 03/24/2023 6:41 AM MANAGER MOBILITY 03/24/2023 6:47 AM MANAGER MOBILITY us None Provider POINT OF CARE TESTING Final Resu lt [facility] [address] [place] [address] * GI LAB IMAGING - EGD (03/24/2023 6:23 AM MANAGER MOBILITY) us Ac PATEL DIAGNOSTIC ORDERABLES Final Result * GI IMAGING - COLONOSCOPY (03/24/2023 6:23 AM MANAGER MOBILITY) us Ac PATEL DIAGNOSTIC ORDERABLES Final Result documented in this encounter Visit Diagnoses Diagnosis Esophageal varices without bleeding, unspecified esophageal varices type (HCC)- Primary documented in this encounter Administered Medications Inactive Administered Medications - up to 3 most recent administrations Medication Order MAR Action Action Date Dose Rate Site lactated ringers infusion at 20 mL/hr, Intravenous, CONTINUOUS, Starting on 03/24/23 at 0700, Until Thu03/24/23 at 1108, PRE-OP (SURGERY) New Bag 03/24/2023 7:28 AM MANAGER MOBILITY 20 mL/hr 20 mL/hr ondansetron (ZOFRAN) injection 4 mg 4 mg, Intravenous, ONCE PRN, 1 dose, Starting on Thu03/24/23 at 0623, Until Thu03/24/23 at 1108, Nausea - 1st line, PRE-OP (SURGERY) documented in this encounter Active and Recently Administered Medications Times are shown in MANAGER MOBILITY. Continuous Medication Order 03/22/2023 03/23/2023 03/24/2023 lactated ringers infusion at 20 mL/hr, Intravenous, CONTINUOUS, Starting on Thu03/24/23 at 0700, Until Thu03/24/23 at 1108, PRE-OP (SURGERY) 0728 (New Bag - Prov ider: Karina Moreno, BETHANY)0734 (Continued by Anesthesia - Provider: Raffaele Chance APRN, UNIX CONSULTANT)0836 (Stopped - Provider: Felicitas Florentino RN) PRN Medication Order 03/22/2023 03/23/2023 03/24/2023 ondansetron (ZOFRAN) injection 4 mg 4 mg, Intravenous, ONCE PRN, 1 dose, Starting on Thu03/24/23 at 0623, Until Thu03/24/23 at 1108, Nausea - 1st line, PRE-OP (SURGERY) documented in this encounter Care Teams Improvement Advisor Relationship Specialty Start Date End Date Janeth Pavon, [address] [place] [address] PCP - General Physician Associate Music Professor 06/22/18 Riddhi Bello APRN, SCIENTIST ELECTRONICS [address] [place] [address] Nurse Practitioner Advanced Practice Nurse 02/10/23 documented as of this encounter
--- OUTSIDE RECORDS SUMMARY | 2024-04-19 23:02 | XMS_ITS | Encounter Summary ---
Author Organization [employer] Care Team Providers Care Childhood Teacher Name Role Phone Braydon Pavon Primary Care Provider [phone] Vikram Mora MD Unavailable Riddhi Bello APRN, BLADE CHANGER Unavailable Encounter Details Date Type Department Care Team (Latest Contact Info) Description 06/10/2023 Travel Social History Tobacco Use Types Packs/Day Years Used Date Smoking Tobacco: Former Cigarettes Q uit: 2002 Smokeless Tobacco: Never Alcohol Use Standard Drinks/Week Comments Not Currently 0 (1 standard drink = 0.6 oz pur e alcohol) Sexually Active Control Partners Comments Yes Female Sex and Gender Information Value Date Recorded Sex Assigned at Not on file Legal Sex Male 10:58 AM HOPPER FEEDER Gender Identity Not on file Sexual Orientation Not on file documented as of this encounter Plan of Treatment Not on file documented as of this encounter Visit Diagnoses Not on filedocumented in this encounter Care Teams Childhood Teacher Relationship Specialty Start Date End Date Braydon Pavon PAC [address] [place] [address] PCP - General Physician Automotive Service Manager 06/22/18 Vikram Mora MD [address] [address] Consulting Physician Endocrinology 05/21/23 Riddhi Bello APRN, BLADE CHANGER [address] [place] [address] Nurse Practitioner Advanced Practice Nurse 02/10/23 documented as of this encounter
--- OUTSIDE RECORDS SUMMARY | 2024-04-19 23:02 | XMS_ITS | Encounter Summary ---
Author Organization [facility] Address [address] [place] [address] Phone Care Team Providers Care Guest Relations Executive Name Role Phone Braydon Pavon VAL Primary Care Provider Riddhi Bello APRN, HAND LAUNDERER Unavailable Encounter Details Date Type Department Care Team (Late st Contact Info) Description 05/11/2023 Telephone [facility] - Gastroenterology - [place] [address] [place] [address] Ac Berger MD [address] [address] Social History Tobacco Use Types Packs/Day Years Used Date Smoking Tobacco: Former Cigarettes Q uit: 2002 Smokeless Tobacco: Never Alcohol Use Standard Drinks/Week Comments Not Currently 0 (1 standard drink = 0.6 oz pur e alcohol) Sexually Active Control Partners Comments Yes Female Sex and Gender Information Value Date Recorded Sex Assigned at Not on file Legal Sex Male 10:58 AM COUNSELING CENTER MANAGER Gender Identity Not on file Sexual Orientation Not on file documented as of this encounter Miscellaneous Notes * Telephone Encounter - Brianna Sorenson RN - 05/11/2023 9:14 AM COUNSELING CENTER MANAGER Letter sent to patient with result note. SELING CENTER MANAGER * Telephone Encounter - Brianna Sorenson RN - 05/11/2023 9:13 AM COUNSELING CENTER MANAGER The patient has not viewed the following result(s) yet. ??Contains abnormal data??CBC with Auto Differential Order: [id number] - Part of Panel Order [id number] Status: Final result ?? Visible to patient: Yes (not seen) ?? Next appt: 06/01/2023 at 08:00 AM in Endocrinology (Vikram Mora MD) ?? 2 Result Notes ?? 1 Patient Communication Component Ref Range & Units 1 mo ago WBC 4.00 - 12.00 10(3)/mcL 3.75??Low?? RBC 4.40 - 5.80 10(6)/mcL 5.77 HEMOGLOBIN (HGB) 13.0 - 16.5 g/dL 13.2 HEMATOCRIT (HCT) 38.0 - 50.0 % 42.5 MCV 82.0 - 96.0 fL 73.7??Low?? SELING CENTER MANAGER documented in this encounter Plan of Treatment Not on file documented as of this encounter Visit Diagnoses Not on filedocumented in this encounter Care Teams Guest Relations Executive Relationship Specialty Start Date End Date Braydon Pavon PAC [address] [place] [address] PCP - General Physician [employer] Consultant 06/22/18 Riddhi Bello APRN, HAND LAUNDERER [address] [place] [address] Nurse Practitioner Advanced Practice Nurse 02/10/23 documented as of this encounter
--- OUTSIDE RECORDS SUMMARY | 2024-04-19 23:02 | XMS_ITS | Encounter Summary ---
Author Organization [facility] Address [address] [place] [address] Phone Care Team Providers Care Fly Frame Tender Name Role Phone Braydon Pavon Primary Care Provider [phone] Vikram Mora MD Unavailable [facility], [facility] Unavailable Reason for Visit * Reason Comments New Patient Diabetes Mellitus * Consult, Test & Initiate Treatment (Routine) - Closed Specialty Diagnoses / Procedures Referred By Contac t Referred To Contact Endocrinology Diagnoses Type 2 diabetes mellitus without complications Braydon Pavon, PAC [address] [place] [address] Phone: tel: fax: Vikram Mora MD [address] [address] Phone: tel: fax: Referral ID Status Reason Start Date Expiration Date Visits Re quested Visits Authorized [id number] Closed 1 1 Encounter Details Date Type Department Care Team (Late st Contact Info) Description 06/01/2023 8:00 AM PADDING GLUER Office Visit [facility] - Endocrinology - [place] [address] [place] [address] Vikram Mora MD [address] [address] (work) Type 2 diabetes mellitus with diabetic polyneuropathy, with long-term current use of insulin (HCC) (Primary Dx); Class 1 obesity due to excess calories with serious comorbidity and body mass index (BMI) of 33.0 to 33.9 in adult; Insulin dose changed (HCC) Discharge Disposition: Discharged to home or Selfcare [...] on file Legal Sex Male 10:58 AM PADDING GLUER Gender Identity Not on file Sexual Orientation Not on file documented as of this encounter Last Filed Vital Signs Vital Sign Reading Time Taken Comments Blood Pressure 98/74 06/01/2023 7:54 AM PADDING GLUER Pulse 85 06/01/2023 7:54 AM PADDING GLUER Temperature 37.1 ??C (98.7 ??F) 06/01/2023 7:54 AM CS T Respiratory Rate 16 06/01/2023 7:54 AM PADDING GLUER Oxygen Saturation 94% 06/01/2023 7:54 AM PADDING GLUER Inhaled Oxygen Concentration - - Weight 97.1 kg (214 lb) 06/01/2023 7:54 AM PADDING GLUER Height - - Body Mass Index 33.52 05/29/2023 11:22 AM PADDING GLUER documented in this encounter Patient Instructions * Patient Instructions* Vikram Mora MD - 06/01/2023 8:00 AM PADDING GLUER Please take Lantus 40 units at bedtime Please take Humalog 14 units before each meal Please use correctional factor insulin before each meal as directed Please monitor blood sugar before each meal and at bedtime Please bring blood sugar log for review at the next visit Contact Endocrinology Clinic for low blood sugar events Follow up visit in 2-3 weeks RULE OF 15: If you have signs/symptoms of low blood sugar (hypoglycemia),and/or your blood sugar isless than 70 mg/dl, you may choose one of the below treatments (~15 gm of carbohydrate):glucose tablets or 1?2 glass (4 oz.) of apple juice or 1/2 glass (4 oz.) of clear regular soda and recheck blood sugar in 15 minutes, If not above 80 mg/dl, retreat treatment until blood sugar is above 80 mg/dl.Once blood sugar is above 80-90 mg/dL, please give insulin as scheduled. Look at your feet, top and bottom every morning. If you have any signs of infection, such as:areas,change in feeling or temperature, swelling, blisters, or cracks in the skin, call your doctor rightaway. Apply lotion to dry skin areas to prevent cracks. Keep the skin between your toes clean and dry. CORRECTION FACTOR: 1:20 BLOOD GLUCOSE (SUGAR) CORRECTION FACTOR: 1:20 HUMALOG/NOVOLOG UNDER 70 TREAT LOW, USE RULE OF 15 71 - 140 +0 UNIT 141 - 160 +1 UNIT 161 - 180 +2 UNITS 181 - 200 +3 UNITS 201 - 220 +4 UNITS 221 - 240 +5 UNITS 241 - 260 +6 UNITS 261 - 280 +7 UNITS 281 - 300 +8 UNITS 301 - 320 +9 UNITS 321 - 340 +10 UNITS 341 - 360 +11 UNITS ABOVE 361 +12 UNITS ING GLUER documented in this encounter Progress Notes * Vikram Mora MD - 06/01/2023 8:00 AM CST CC: Hyperglycemia HISTORY OF PRESENT ILLNESS: Camilo Curry is a 52-year-old man who comes to the Endocrinology office to discuss management of type 2 diabetes mellitus. The patient's diabetes is complicated by lower extremity sensory neuropathy. Other pertinent health history includes liver cirrhosis, anxiety, and obesity. The patient was williams jeffshantelle diagnosed with diabetes approximately 12 years ago. The patient had gastrointestinal side effects when taking metformin. Currently, Mr. Curry takes Lantus 50 units in the morning, 35 units in the evening, Humalog 45 units before each meal for management of hyperglycemia. The patient reports that he has not compliant with medication as directed. The patient reports infrequent, mild hypoglycemic events with intact symptoms of hypoglycemia awareness. The patient had a severe low blood sugar event requiring third democrat intervention. Unfortunately, the patient did not bring his glucose meter for download or a logbook for review at today's office appointment. Mr. Curry reported that his blood sugars have been running mostly between 250 and 350 mg/dL. Hemoglobin A1c obtained in May 2023 was 11.6%. Diabetes related complication surveillance 1. No history of diabetic retinopathy - the last dilated eye exam was 1 year ago 2. (+) symptoms of peripheral sensory neuropathy 3. Urine microalbumin/creatinine ratio - not available 4. No history of macrovascular disease Review of Systems Constitutional: Negative for activity change, appetite change; (+) weight loss Respiratory: Negative for cough and shortness of breath. Cardiovascular: Negative for chest pain and palpitations. Gastrointestinal: Negative for diarrhea, constipation and abdominal distention. Endocrine: Positive for polydipsia, polyphagia and polyuria. Neurological: Positive for tingling/numbness Past Medical History Positives Diagnosis Date ??? Anxiety ??? Cirrhosis of liver (HCC) ??? Diabetes mellitus (HCC) ??? Esophageal varices (HCC) ??? Hepatitis ??? BLAND (nonalcoholic steatohepatitis) ??? Spinal stenosis Past Surgical History: Procedure Laterality Date ??? COLONOSCOPY N/A 03/24/2023 Procedure: COLONOSCOPY-CECAL POLYP REMOVED BY HOT SNARE, DIVERTICULOSIS; Surgeon: Ac Berger MD; Location: [facility]; Service: Gastroenterology ??? COLONOSCOPY W/ BIOPSY 2005 ??? EGD WITH BANDING ??? EGD WITH BANDING ??? TIPS PROCEDURE TIMES 2 ??? UPPER GASTROINTESTINAL ENDOSCOPY N/A 03/24/2023 Procedure: EGD-PORTAL HYPERTENSIVE GASTROPATHY, GRADE ONE ESOPHAGEAL VARCIES; Surgeon: Ac Berger MD; Location: [facility]; Service: Gastroenterology Social History Socioeconomic History ??? Marital status: Spouse name: Not on file ??? Number of children: Not on file ??? Years of education: Not on file ??? Highest education level: Not on file Occupational History ??? Not on file Tobacco Use ??? Smoking status: Former Types: Cigarettes Quit date: 2003 Years since quittin.0 ??? Smokeless tobacco: Never [...] on file Housing Stability: Not on file Family History Problem Relation Age of Onset ??? Cancer Mother ??? Ovarian Cancer Mother ??? Cancer Father Vitals: 06/01/23 0754 BP: 98/74 Pulse: 85 Resp: 16 Temp: 98.7 ??F (37.1 ??C) SpO2: 94% Weight: 214 lb (97.1 kg) Objective: Physical Exam Constitutional: appears well-developed and well-nourished. No acute distress. Head: Normocephalic and atraumatic. Cardiovascular: Normal rate and regular rhythm Pulmonary/Chest: Effort normal and breath sounds normal Abdominal: (+) lipohypertrophy at injection sites Diabetic foot exam: Skin on the patient???s feet was clean, dry, and intact. Dorsalis pedis pulses were 1+ bilaterally, and monofilament perception was intact in both feet; (+) callus, (+) onychomycosis DIAGNOSTIC DATA: Lab Results Component Value Date HGBA1C 11.6 (H) 05/20/2023 HGBA1C 11.5 (H) 02/10/2023 HGBA1C 11.5 02/10/2023 Lab Results Component Value Date HEMATOCRIT 48.2 05/29/2023 Lab Results Component Value Date CREATININE 1.16 05/29/2023 GFRNA >60 05/29/2023 CALCIUM 9.6 05/29/2023 SGPTALT 23 05/29/2023 Lab Results Component Value Date SODIUM 130 (L) 05/29/2023 POTASSIUM 4.5 05/29/2023 CHLORIDE 101 05/29/2023 CO2VEN 22 05/29/2023 MAGNESIUM 1.8 05/20/2023 Assessment and Plan Assessment Camilo Curry is a middle-aged man with type 2 diabetes mellitus whose glycemic control was suboptimal based on both review of his capillary blood glucose report and recent hemoglobin A1c measurement. In particular, hemoglobin A1c is well above the patient's [place] [employer] Association treatmenttarget of less than 7%. Treatment consideration and lifestyle modification were discussed with him at some length. Initial total daily insulin requirement is estimated at ~ 0.8 U/kg. He will take Lantus 40 units at bedtime and Humalog 14 units before each meal for management of hyperglycemia. Mr. Curry will check blood sugar consistently before each meal and at bedtime. He will then bring theseresults for review at the next visit. The patient will return for office reevaluation in 2-3 weeks. PLAN: 1. Take Lantus 40 units at bedtime 2. Take Humalog 14 units before each meal 3. Correctional factor insulin dosed at 1:20 if CBG is > 140 mg/dl 4. Monitor blood sugar QAC/QHS 5. Bring CBG log for review 6. Contact Endocrinology Clinic for low blood sugar events 7. RTC in 2-3 weeks Obesity PLAN: 1. Low carb and calorie diet 2. Avoid snack and beverage between meal and at bedtime 3. Consider a GLP-1 agonist - discuss it further at the next visit Total time spent on this encounter on this date of service, including pre-visit review of separately obtained history, [id number] interaction performing medically appropriate physical exam, patientcounseling/education, interpretation of diagnostic results, care coordination and documentation was47 minute Vikram Mora MD 06/01/2023 ING GLUER documented in this encounter Plan of Treatment Not on file documented as of this encounter Visit Diagnoses Diagnosis Type 2 diabetes mellitus with diabetic polyneuropathy, with long-term current use of insulin (HCC)- Primary Class 1 obesity due to excess calories with serious comorbidity and body mass index (BMI) of 33.0 to 33.9 in adult Insulin dose changed (HCC) documented in this encounter Care Teams Fly Frame Tender Relationship Specialty Start Date End Date Braydon Pavon PAC [address] [place] [id number] PCP - General Physician Roofer Helper Vinyl Coating 06/22/18 Vikram Mora MD [address] [id number] Consulting Physician Endocrinology 05/21/23 Riddhi Bello APRN, RADIATION THERAPIST [address] [place] [address] Nurse Practitioner Advanced Practice Nurse 02/10/23 documented as of this encounter
--- OUTSIDE RECORDS SUMMARY | 2024-04-19 23:02 | XMS_ITS | Encounter Summary ---
Author Organization [employer] Care Team Providers Care Boarding Room Fixer Name Role Phone Braydon Pavon Primary Care Provider [phone] Riddhi Bello APRN, CLINICAL OPERATIONS MANAGER Unavailable Encounter Details Date Type Department Care Team (Latest Contact Info) Description 02/10/2023 Travel Social History Tobacco Use Types Packs/Day Years Used Date Smoking Tobacco: Former Cigarettes Q uit: 2002 Smokeless Tobacco: Never Alcohol Use Standard Drinks/Week Comments Not Currently 0 (1 standard drink = 0.6 oz pur e alcohol) Sexually Active Control Partners Comments Yes Female Sex and Gender Information Value Date Recorded Sex Assigned at Not on file Legal Sex Male 10:58 AM PROBATION AND PAROLE OFFICER Gender Identity Not on file Sexual [...] on filedocumented in this encounter Care Teams Boarding Room Fixer Relationship Specialty Start Date End Date Braydon Pavon PAC [address] [place] [id number] PCP - General Physician First Coat Sander 06/22/18 Riddhi Bello APRN, CLINICAL OPERATIONS MANAGER [address] [place] [address] Nurse Practitioner Advanced Practice Nurse 02/10/23 documented as of this encounter
--- OUTSIDE RECORDS SUMMARY | 2024-04-19 23:02 | XMS_ITS | Encounter Summary ---
Author Organization [facility] Address [address] [place] [address] Phone Care Team Providers Care Lines Tender Name Role Phone BebeabBraydon Primary Care Provider [phone] Vikram Mora MD Unavailable Riddhi Bello APRN, LANGUAGE ASST Unavailable Reason for Referral * Radiology Services (Routine) - Closed Specialty Diagnoses / Procedures Referred By Jordan casillas Referred To Contact Radiology Diagnoses Pain of upper abdomen Nausea and vomiting, unspecified vomiting type Procedures NM HEPATOBILIARY WITH PHARM Riddhi Bello APRN, LANGUAGE ASST [address] [place] [address] Phone: tel: fax: Referral ID Status Reason Start Date Expiration Date Visits Re quested Visits Authorized [id number] Closed 05/29/2023 1 1 ICAL SERVICES ASSISTANT Reason for Visit * Radiology Services (Routine) - Closed Specialty Diagnoses / Procedures Referred By Contwinnie casilals Referred To Contact Radiology Diagnoses Pain of upper abdomen Nausea and vomiting, unspecified vomiting type Procedures NM HEPATOBILIARY WITH PHARM Riddhi Bello APRN, LANGUAGE ASST [address] [place] [address] Phone: tel: fax: Referral ID Status Reason Start Date Expiration Date Visits Re quested Visits Authorized [id number] Closed 05/29/2023 1 1 Encounter Details Date Type Department Care Team (Late st Contact Info) Description 06/11/2023 8:52 AM SURGICAL SERVICES ASSISTANT - 06/11/2023 11:59 PM SURGICAL SERVICES ASSISTANT Hospital Encounter [facility] [address] [place] [address] Riddhi Bello APRN, LANGUAGE ASST [address] [place] [address] Discharge Disposition: Discharged to home or Selfcare [...] on file Legal Sex Male 10:58 AM SURGICAL SERVICES ASSISTANT Gender Identity Not on file Sexual Orientation Not on file documented as of this encounter Last Filed Vital Signs Vital Sign Reading Time Taken Comments Blood Pressure - - Pulse - - Temperature - - Respiratory Rate - - Oxygen Saturation - - Inhaled Oxygen Concentration - - Weight 97.1 kg (214 lb) 06/11/2023 8:52 AM SURGICAL SERVICES ASSISTANT Height 170.2 cm (5' 7 ) 06/11/2023 8:52 AM SURGICAL SERVICES ASSISTANT Body Mass Index 33.52 06/11/2023 8:52 AM SURGICAL SERVICES ASSISTANT documented in this encounter Medications at Time of Discharge albuterol 108 (90 Base) MCG/ACT Aerosol Solution every 4 hours as needed. 02/02/2023 ALPRAZolam (XANAX) 1 MG Tablet Take by mouth as needed. carvedilol (COREG) 3.125 MG Tablet Take 1 Tablet by mouth 2 times daily. 180 Tablet 3 02/17/2023 Continuous Blood Gluc Cloth Feeder (Dexcom G7 Cloth Feeder) Device Check blood glucose before each meal and at bedtime 1 Each 06/01/2023 ergocalciferol (VITAMIN D) 80641 UNIT Capsule Take 50,000 Units by mouth. [...] Subcutaneous route. 11/07/2020 Insulin Pen Needle (Pen [place]) 32G X 4 MM Misc Inject 3 [...] traZODone (DESYREL) 100 MG Tablet nightly. 02/02/2023 Continuous Blood Gluc Sensor (Dexcom G7 Sensor) Misc Change sensor every 10 days. 9 Each 1 06/08/2023 4 guaiFENesin-codei ne (TUSSI-ORGANIDIN NR) 100-10 MG/5ML Syrup Take 5 mL by mouth every 4 hours as needed for Cough. 4 LACTULOSE PO Take 30 mL by mouth 4 times daily. 4 pregabalin (LYRICA) 75 MG CapsuleIndication s:Neuropathic Pain Take 75 mg by mouth 2 times daily. Indications: Neuropathic Pain 4 traMADol (ULTRAM) 50 MG Tablet 0 02/02/2023 documented as of this encounter Plan of Treatment Not on file documented as of this encounter Procedures Procedure Name Priority Date/Time Associated Diagnosis Comments NM HEPATOBILIARY WITH PHARM Routine 06/11/2023 10:42 AM SURGICAL SERVICES ASSISTANT Pain of upper abdomen Nausea and vomiting, unspecified vomiting type documented in this encounter Results * NM HEPATOBILIARY WITH PHARM (06/11/2023 10:42 AM SURGICAL SERVICES ASSISTANT) Anatomical Region Laterality Modality Abdomen N/A Nuclear Medicine 06/11/2023 11:4 5 AM SURGICAL SERVICES ASSISTANT Impressions 06/11/2023 11:47 AM SURGICAL SERVICES ASSISTANT IMPRESSION: ?? No scintigraphic evidence of common bile or cystic duct obstruction. Normal contractile response of the gallbladder to fatty meal stimulation. Narrative 06/11/2023 11:47 AM SURGICAL SERVICES ASSISTANT EXAM DESCRIPTION: ?? NM HEPATOBILIARY WITH PHARM [...] AM T: ??06/11/2023 11:45 AM Report ID: [id number] Reading Location: ??[id number] Procedure Note Rajeev Villalobos MD - 06/11/2023 [...] Rajeev Villalobos M.D. LB: DONNA Report ID: [id number] Reading Location: [id number] IMPRESSION: No scintigraphic evidence of common bile or cystic duct obstruction. Normal contractile response of the gallbladder to fatty meal stimulation. Riddhi Bello APRN, DOROTHY IMG NM ORDERABLES Final Result documented in this encounter Visit Diagnoses Diagnosis Pain of upper abdomen Abdominal pain, other specified site Nausea and vomiting, unspecified vomiting type documented in this encounter Administered Medications Inactive Administered Medications - up to 3 most recent administrations Medication Order MAR Action Action Date Dose Rate Site TC-99M MEBROFENIN PER DOSE,UP TO 15 MCI 1 Dose, Intravenous, ONCE, 1 dose, On Debbie 06/11/23 at 0930 Given 06/11/2023 8:49 AM SURGICAL SERVICES ASSISTANT 1 Dose documented in this encounter Care Teams Lines Tender Relationship Specialty Start Date End Date Braydon Pavon PAC [address] [place] [address] PCP - General Physician Hot Worker 06/22/18 Vikram Mora MD #[address] [address] Consulting Physician Endocrinology 05/21/23 Riddhi Bello APRN, LANGUAGE ASST [address] [place] [address] Nurse Practitioner Advanced Practice Nurse 02/10/23 documented as of this encounter
--- OUTSIDE RECORDS SUMMARY | 2024-04-19 23:02 | XMS_ITS | Encounter Summary ---
Author Organization [employer] Care Team Providers Care Terminal Gauger Name Role Phone Braydon Pavon Primary Care Provider [phone] Vikram Mora MD Unavailable [facility] APRN, MICROFILM CLERK Unavailable Encounter Details Date Type Department Care Team (Latest Contact Info) Description 11/13/2023 Travel Social History Tobacco Use Types Packs/Day Years Used Date Smoking Tobacco: Former Cigarettes Q uit: 2002 Smokeless Tobacco: Never Alcohol Use Standard Drinks/Week Comments Not Currently 0 (1 standard drink = 0.6 oz pur e alcohol) Sexually Active Control Partners Comments Yes Female Sex and Gender Information Value Date Recorded Sex Assigned at Not on file Legal Sex Male 10:58 AM POWER SYSTEM ENGINEER Gender Identity Not on file Sexual Orientation Not on file documented as of this encounter Plan of Treatment Not on file documented as of this encounter Visit Diagnoses Not on filedocumented in this encounter Additional Health Concerns Infection Onset Date Last Indicated Resolved Time COVID - 19 11/13/2023 11/13/2023 11/13/2023 8:24 PM CDT documented as of this encounter Care Teams Terminal Gauger Relationship Specialty Start Date End Date Braydon Pavon PAC [address] [place] [address] PCP - General Physician Director Of Pulmonary Unit 06/22/18 Vikram Mora MD #[address] [address] Consulting Physician Endocrinology 05/21/23 Riddhi Bello APRN, MICROFILM CLERK [address] [place] [address] Nurse Practitioner Advanced Practice Nurse 02/10/23 documented as of this encounter
--- OUTSIDE RECORDS SUMMARY | 2024-04-19 23:02 | XMS_ITS | Encounter Summary ---
Author Organization [facility] Address [address] [place] [address] Phone Care Team Providers Care Associate Professor Of Chemistry Name Role Phone Braydon Pavon VAL Primary Care Provider Riddhi Bello APRN, PRODUCTION MATERIAL COORDINATOR Unavailable Encounter Details Date Type Department Care Team (Late st Contact Info) Description 02/10/2023 2:10 PM CDT [facility] [address] [place] [id number] Riddhi Bello APRN, PRODUCTION MATERIAL COORDINATOR [address] [place] [address] Diabetes mellitus without complication (HCC) (Primary Dx) Discharge Disposition: Discharged to home or Selfcare [...] on file Legal Sex Male 10:58 AM CARDIOTHORACIC PHYSIOTHERAPIST Gender Identity Not on file Sexual Orientation [...] Priority Date/Time Associated Diagnosis Comments HEMOGLOBIN A1C W/ ESTIMATED GLUCOSE Routine 02/10/2023 2:26 PM CDT Diabetes mellitus without complication (HCC) HEMOGLOBIN A1C W/ ESTIMATED GLUCOSE Routine 02/10/2023 12:00 AM CDT documented in this encounter Results * (ABNORMAL) HEMOGLOBIN A1C W/ ESTIMATED GLUCOSE (02/10/2023 2:26 PM CDT) HGB-A1C 11.5(H) 4.0 - 6.0 % 02/10/2023 2:53 PM CDT [facility] Est Average Glucose 283.4 mg/dL 02/10/2023 2:53 PM CDT [facility] Blood Venipuncture / Unknown 02/10/2023 2:26 PM CDT 02/10/2023 2:37 PM CDT Narrative [facility] - 02/10/2023 2:53 PM CDT HEMOGLOBIN A1C: DIABETIC PATIENTS: WELL-CONTROLLED: ?? 6.2 - 7.0 INTERMEDIATE WELL-CONTROLLED: ??7.0 - 9.0 POORLY-CONTROLLED: ??>9.0 Ying Dueñas ADULT PAROLE OFFICER, PRODUCTION MATERIAL COORDINATOR CHEMISTRY ORDERABLES Fin al Result Performing Organization Address City/[facility]/ZIP Co de Phone Number [facility] [address] [place] [address] * HEMOGLOBIN A1C W/ ESTIMATED GLUCOSE (02/10/2023 12:00 AM CDT) HGB-A1C 11.5 % SCAN 02/10/2023 Ying Dueñas ADULT PAROLE OFFICER, PRODUCTION MATERIAL COORDINATOR CHEMISTRY ORDERABLES Fin al Result SCAN documented in this encounter Visit Diagnoses Diagnosis Diabetes mellitus without complication (HCC)- Primary Type II or unspecified type diabetes mellitus without mention of complication, not stated as uncontrolled documented in this encounter Care Teams Associate Professor Of Chemistry Relationship Specialty Start Date End Date Braydon Pavon PAC [address] [place] [address] PCP - General Physician Safety Investigator 06/22/18 Riddhi Bello APRN, PRODUCTION MATERIAL COORDINATOR [address] [place] [address] Nurse Practitioner Advanced Practice Nurse 02/10/23 documented as of this encounter
--- OUTSIDE RECORDS SUMMARY | 2024-04-19 23:03 | XMS_ITS | Encounter Summary ---
Author Organization [facility] Address [address] 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) Procedures GASTRO PROCEDURE Riddhi Bello APRN, CNP [address] [place] [address] Phone: tel: fax: Referral ID Status Reason Start Date Expiration Date Visits Re quested Visits Authorized [id number] Closed 02/12/2023 1 1 * Other (Routine) - Closed Specialty Diagnoses / Procedures Referred By Jordan casillas Referred To Contact Gastroenterology Diagnoses History of colon polyps Procedures GASTRO PROCEDURE Riddhi Bello APRN, CNP [address] [place] [address] Phone: tel: fax: Referral ID Status Reason Start Date Expiration Date Visits Re quested Visits Authorized [id number] Closed 02/10/2023 1 1 * Radiology Services (Routine) - Closed Specialty Diagnoses / Procedures Referred By Jordan t Referred To Contact Radiology Diagnoses 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) Procedures US ABDOMEN LIMITED LEVEL 3 THREE ORGAN Riddhi Bello APRN, CNP [address] [place] [address] Phone: tel: fax: Referral ID Status Reason Start Date Expiration Date Visits Re quested Visits Authorized [id number] Closed 02/10/2023 1 1 Reason for Visit * Reason Comments New Patient * Consult, Test & Initiate Treatment (Less Than 4 Weeks) - Closed Specialty Diagnoses / Procedures Referred By Contact Referred To Contact Gastroenterology Diagnoses Acute and subacute hepatic failure without coma Braydon Pavon, [facility] [address] [place] [address] Phone: tel: fax: [facility] Medical [facility] - Gastroenterology - [place] [address] [place] [address] Phone: tel: fax: Referral ID Status Reason Start Date Expiration Date Visits Re quested Visits Authorized [id number] Closed 1 1 Encounter Details Date Type Department Care Team (Latest Contact Info) Description 02/10/2023 1:00 PM CDT Office Visit [facility] Medical [facility] - Gastroenterology - [place] [address] [place] [address] Riddhi Bello APRN, CNP [address] [place] [address] 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 No / Unsure 02/10/2023 12:46 PM CDT documented as of this encounter Last Filed Vital Signs Vital Sign Reading Time Taken Comments Blood Pressure 142/74 02/10/2023 1:13 PM CDT Pulse 96 02/10/2023 1:13 PM CDT Temperature 36.9 ??C (98.4 ??F) 02/10/2023 1 :13 PM CDT Respiratory Rate 14 02/10/2023 1:13 PM CDT Oxygen Saturation 97% 02/10/2023 1:1 3 PM CDT Inhaled Oxygen Concentration - - Weight 97.8 kg (215 lb 9.6 oz) 02/10/2023 1:13 PM CDT BMI incorrect due to technical error Height 172.7 cm (5' 8 ) 02/10/2023 1:13 PM CDT BMI incorrect due to technical error Body Mass Index 32.78 02/10/2023 1:13 PM CDT documented in this encounter Progress Notes * Riddhi Bello APRN, ANIMAL TREATMENT INVESTIGATOR - 02/10/2023 1:00 PM CDT SAPG GASTRO [facility] - GASTROENTEROLOGY - [place] [address] [facility] [address] Dept: [phone] Dept Loc: [phone] Loc Patient: Camilo Curry : 1970 Sex: male Medical Decision Making: Assessment & Plan Diagnoses and all orders for this visit: 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 - HumaLOG KwikPen 100 UNIT/ML Solution Pen-injector - Lantus SoloStar 100 UNIT/ML Solution Pen-injector - albuterol 108 (90 Base) MCG/ACT Aerosol Solution - ergocalciferol (VITAMIN D) 24620 UNIT Capsule; Take 50,000 Units by mouth. - Insulin Pen Needle (B-D ULTRAFINE III SHORT PEN) 31G X 8 MM Misc - Insulin Pen Needle (B-D ULTRAFINE III SHORT PEN) 31G X 8 MM Misc; 1 Each by Subcutaneous route. 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 He is also due for the dopler ultrasound of the TIPPS. This will be ordered and he will go to [facility] to have this done. He is also willing to see the [facility] liver clinic so we will put in a referral for that as well. He is due for a colonoscopy and would like to have this done. Last was in 2020 and he had poor prep. Advised to do a double prep this time. Last EGD was in 2020 also. He has a history of esophageal varices with banding. We will plan on scheduling EGD for reevaluation of the varices. The bleeding from the mouth is likely coming from either gums or teeth. He has some thrombocytopenia due to the liver disease. Continue the lactulose. Also continue the mirilax to help with the constipation. He needs to be started on a beta archie to help maintain the portal hypertension. We will plan on starting him on coreg 6.25 mg BID. At this time we will wait to start the xifaxen, but this medication will likely need to be added inthe future. Return in about 3 months (around 05/13/2023) for liver cirrhosis. Subjective Subjective: HPI: Camilo Curry is a 52 y.o. male presents for New Patient Dwight is here today as a new patient with referral from his PCP for liver cirrhosis. He is here with his today. He has a long and slightly complicated history of BLAND induced liver cirrhosis. He has previously beinh followed at [facility] liver clinic and was last seen there in 2020. He had to stop seeing them because they did not take his insurance anymore. He then tried to establish with a GI specialist in [facility] but reports that he had a lot of trouble with the office and getting in to see the doctor. He did see him once but did not care for him so he is wanting to get established with this GI office. He had a TIPPS placed in 2015. He then had to have a Revision of the TIPPS in 2020 due to some stenosis of the duct. Stent was placed. He was advised to have dopler ultrasound of the TIPPS every 3 months to ensure patentency. He states the last dopler was 2 years ago. He needs a colonoscopy. Last was attempted in 2020 but he had poor prep and no biopsies were obtained. He was advised to have it repeated in about 1 year. He denies any family history of GI cancers. He states that he has been waking in the morning with blood on his pillow that had come from his mouth. He denies any issues with his teeth or gums, no nose bleeds. He denies any dark tarry stools. He reports a history of esophageal varices with banding. Last EGD was in 2020. He has been on lactulose and takes this 3 times a day. He has a history of hepatic encephalopathy. He states that he still has issues with constipation and will also take mirilax or MOM to help with the constipation. He has been on xifaxin in the past, but has not taken this for the last couple of years. He endorses some weight loss over the last 5 months. Not sure how much but feels that it is from his decreased appetite as he has been eating less. He has not increased his activity. His other health issues are as noted in his chart. Problem List: Patient Active Problem List Diagnosis ??? Sacroiliac joint dysfunction of both sides ??? 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-sided sciatica ??? BLAND (nonalcoholic steatohepatitis) ??? Esophageal varices (HCC) ??? Gallstones ??? Biliary colic ??? Hepatic encephalopathy (HCC) ??? Hypertension Past Medical History: Past Medical History Positives Diagnosis Date ??? Anxiety ??? Diabetes mellitus (HCC) ??? Hepatitis ??? Spinal stenosis Past Surgical History: Past Surgical History: Procedure Laterality Date ??? COLONOSCOPY W/ BIOPSY 2005 ??? EGD WITH BANDING ??? EGD WITH BANDING ??? TIPS PROCEDURE TIMES 2 Family History: Family History Problem Relation Age of Onset ??? Ovarian Cancer Mother Social History: Social History Socioeconomic History ??? Marital status: Tobacco Use ??? Smoking status: Former Types: Cigarettes Quit date: 2003 Years since quittin.7 ??? Smokeless tobacco: Never Vaping Use ??? Vaping Use: Former Substance and Sexual Activity ??? Alcohol use: Not Currently ??? Drug use: Not Currently ??? Sexual activity: Yes Partners: Female Medications: Current Outpatient Medications: ??? albuterol 108 (90 Base) MCG/ACT Aerosol Solution ??? ALPRAZolam (XANAX PO) ??? ergocalciferol (VITAMIN D) 70681 UNIT Capsule ??? Glucose Blood Strip ??? HumaLOG KwikPen 100 UNIT/ML Solution Pen-injector ??? hydroCHLOROthiazide 25 MG Tablet ??? Insulin Pen Needle (B-D ULTRAFINE III SHORT PEN) 31G X 8 MM Misc ??? Insulin Pen Needle (B-D ULTRAFINE III SHORT PEN) 31G X 8 MM Misc ??? Insulin Pen Needle (Pen Colony) 32G X 4 MM Misc ??? Insulin Regular Human (HUMULIN R IJ) ??? LACTULOSE PO ??? Lantus SoloStar 100 UNIT/ML Solution Pen-injector ??? metFORMIN (GLUCOPHAGE) 1000 MG Tablet ??? Omeprazole 20 MG Tablet Delayed Response ??? ondansetron (ZOFRAN) 4 MG Tablet ??? OneTouch Ultra Strip ??? rifAXIMin (XIFAXAN) 200 MG Tablet ??? [...] ??? Penicillins Unknown ??? Sulfa Antibiotics Unknown Review of systems was negative, except as documented in HPI. Objective Objective: BP 142/74 Pulse 96 Temp 98.4 ??F (36.9 ??C) Resp 14 Ht 5' 8 (1.727 m) Wt 215 lb 9.6 oz (97.8 kg) SpO2 97% BMI 32.78 kg/m?? General appearance: alert, no distress, cooperative, appears stated age Lungs: clear to auscultation bilaterally Heart: regular rate and rhythm, Abdomen: soft, rounded, no tenderness. Bowel sounds normal. No masses, no organomegaly appreciated. Extremities: extremities normal, atraumatic, no cyanosis or edema Skin: Skin color, texture, turgor normal. No rashes or lesions Neurologic: Alert and oriented X 3. Labs: No results found for: WBC, HEMOGLOBIN, HEMATOCRIT, PLATELETCNT, MCV No results found for: INR No results found for: SODIUM, POTASSIUM, CHLORIDE, CO2VEN, ANIONGAP, GLUCOSE, BUN, CREATININE, BCRATIO8, TOTALPROTEIN, ALBUMIN, AGRATIO, CALCIUM, TBIL, SGOTAST, SGPTALT, ALKALINEPHO, GFRNA, GFRA No results found. Review of diagnostic tests: labs, imaging, prior EGD and colonoscopy reports Riddhi Bello APRN, ANIMAL TREATMENT INVESTIGATOR This note was transcribed using [employer] TA speech recognition software. As a result, there may be unintended grammar and spelling errors. 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) Expected: 02/10/2023, Expires: 05/11/2023 GASTRO PROCEDURE Procedures Routine History of colon polyps Expected: 02/10/2023 (Approximate), Expires: 02/11/2024 GASTRO PROCEDURE Procedures Routine 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) Expected: 02/12/2023 (Approximate), Expires: 02/11/2024 documented as of this encounter Procedures Procedure Name Priority Date/Time Associated Diagnosis Comments AMMONIA Routine 02/10/2023 2:26 PM CDT 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 No positive sonographic [place] sign reported. ?? BILIARY: ?? There is [...] AM T: ??03/01/2023 5:46 AM Report ID: [id number] Reading Location: ??[id number] THIS IS AN ELECTRONICALLY VERIFIED FINAL REPORT 03/09/2023 8:07 AM ??Addendum Electronically signed by Kyle KEMP: VIRIDIANA D: ??03/04/2023 4:00 PM T: ??03/04/2023 4:00 PM Report ID: [id number] Reading Location: ??[id number] Impressions 03/01/2023 5:49 AM CDT IMPRESSION: Coarse [...] thickening or pericholecystic fluid. No positive sonographic [place] sign reported. ?? BILIARY: ?? There is [...] AM T: ??03/01/2023 5:46 AM Report ID: [id number] Reading Location: ??[id number] Procedure Note Carl Tubbs MD - 03/01/2023 [...] thickening or pericholecystic fluid. No positive sonographic [place] sign reported. BILIARY: There is no intrahepatic [...] Kyle Tubbs M.D. VIRIDIANA: VIRIDIANA Report ID: [id number] Reading Location: [id number] IMPRESSION: Coarse ultrasound architecture in the liver, perhaps due to cirrhosis. No definite mass was seen. Right pelvic kidney. 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)- Primary Other chronic nonalcoholic liver disease History of colon polyps Personal history of colonic polyps Constipation, unspecified constipation type S/P TIPS (transjugular intrahepatic portosystemic shunt) Other postprocedural status Oral bleeding Hemorrhage, unspecified 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
--- OUTSIDE RECORDS SUMMARY | 2024-04-19 23:06 | XMS_ITS | Continuity of Care Document ---
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 Plan of Treatment Reminders Order Date Submit Date Provider Last Modified By Organization Details Last Modified Time Details Appointments None recorded. Lab urinalysis , dipstick 2023 024 MICKEY In-Office Order, Internal Use Only DO Not Attach Compendium DO Not Attach Compendium, Do Not Delete/merge, [id number] 10:17:29 Referral None recorded. Procedures None recorded. Surgeries None recorded. Imaging None recorded. Medication Orders None recorded. Patient TargetsNo targets recorded. Patient Instructions Encounter Date Encounter Id Patient Instructions Last Modified By Organization Details Last Modified Time 04/06/2024 [id number] painful urinatio n (dysuria): care instructions jnanney Not available 04/06/2024 10:11:20 When You Want to Lose Weight: Care Instructions jnanney Not available 04/06/2024 10:27:46 type 2 diabetes: care instructions jnanney Not available 04/06/2024 10:27:46 Reason for Referral None Reported. Results Created Date Observation Date Name Description Value Unit Range Abnormal Flag Note LastModifiedBy Organization Detail LastModifiedTime 04/06/2004/06/2024 urina lysis , dipst ick Leukocytes Negati ve Not Available In-Office Order Internal Use Only DO Not Attach Compendium DO Not Attach Compendium, Do Not Delete/merge, [id number] 04/06/2024 10:08:18 04/06/20 24 04/06/2024 urina lysis , dipst ick Nitrite negati ve Not Available In-Office Order Internal Use Only DO Not Attach Compendium DO Not Attach Compendium, Do Not Delete/merge, 04/06/2024 10:08:18 04/06/20 24 04/06/2024 urina lysis , dipst ick Urobilinogen .2 Not Available In-Of fice Order Internal Use Only DO Not Attach Compendium DO Not Attach Compendium, Do Not Delete/merge, 04/06/2024 10:08:18 04/06/20 24 04/06/2024 urina lysis , dipst ick Protein Negati ve Not Available In-Office Order Internal Use Only DO Not Attach Compendium DO Not Attach Compendium, Do Not Delete/merge, 04/06/2024 10:08:18 04/06/20 24 04/06/2024 urina lysis , dipst ick pH 6.0 Not Available In-Office Order Internal Use Only DO Not Attach Compendium DO Not Attach Compendium, Do Not Delete/merge, 04/06/2024 10:08:18 04/06/20 24 04/06/2024 urina lysis , dipst ick Blood Negati ve Not Available In-Office Order Internal Use Only DO Not Attach Compendium DO Not Attach Compendium, Do Not Delete/merge, 04/06/2024 10:08:18 04/06/20 24 04/06/2024 urina lysis , dipst ick Specific [place] 1.015 Not Available In-Off ice Order Internal Use Only DO Not Attach Compendium DO Not Attach Compendium, Do Not Delete/merge, 04/06/2024 10:08:18 04/06/20 24 04/06/2024 urina lysis , dipst ick Ketone Trace Not Available In-Office Order Internal Use Only DO Not Attach Compendium DO Not Attach Compendium, Do Not Delete/merge, 04/06/2024 10:08:18 04/06/20 24 04/06/2024 urina lysis , dipst ick Bilirubin Negati ve Not Available In-Office Order Internal Use Only DO Not Attach Compendium DO Not Attach Compendium, Do Not Delete/merge, [id number] 04/06/2024 10:08:18 04/06/20 24 04/06/2024 urina lysis , dipst ick Glucose 1000 Not Available In-Office Order Internal Use Only DO Not Attach Compendium DO Not Attach Compendium, Do Not Delete/merge, [id number] 04/06/2024 10:08:18 04/06/20 24 04/06/2024 urina lysis , dipst ick Appearance Clear Not Available In-Offi ce Order Internal Use Only DO Not Attach Compendium DO Not Attach Compendium, Do Not Delete/merge, [id number] 04/06/2024 10:08:18 04/06/20 24 04/06/2024 urina lysis , dipst ick Color Yellow Not Available In-Office Order Internal Use Only DO Not Attach Compendium DO Not Attach Compendium, Do Not Delete/merge, [id number] 04/06/2024 10:08:18 04/17/20 24 04/16/2024 MRI, lumba r spine , w/o contr ast No observ ation record ed. [facility] [address] [place], [address], 04/18/2024 12:31:37 Result Notes None recorded. Problems Name Problem SNOMED Code Status Onset Date Resolution Date Notes Provider Name and Address Organization Details Recorded Time Diabetes mellitus 62628760 Active 2018 [facility] [place], [place] - [facility] 10:51:15 Liver finding 343499814 Active 2018 [facility] [place] [facility] 10:51:15 Hyperglycem ia due to type 2 diabetes mellitus 9870073061950 09 Active [facility] [place] - [facility] 4 09:09:59 Type 2 diabetes mellitus in obese 18296479 Active [facility] [place] [facility] 10:51:15 Bacteremia 3666047 Active [facility] [place] [facility] 10:51:15 Gastroesoph ageal reflux disease 339279998 Active [facility] [place] - [facility] 1 10:51:15 Abscess 498338400 Active [facility] [place] - [facility] 1 10:51:15 Backache 866313195 Active [facility] [place] - [facility] 1 10:51:15 Hepatic failure 53552226 [facility] [place] - [facility] 1 10:51:15 Problem Notes None recorded. Procedures Surgical History Date Name Laterality Status Provider Name and Address Organization Details Recorded Time 6 colonoscopy completed [facility] [place] - [facility] 11/15/2021 15:39:15 Imaging Results None recorded. Procedure Notes None recorded. Medical Equipment None Reported. Allergies Allergen ID Allergen Name Allergen Category Reaction Reaction Severity Criticality Documentation Date Start Date Code Code System Note Provider Name and Address Organization Details Recorded Time 055050 Medicinal product containin g penicilli n and acting as antibacte rial agent (product) medicatio n Not available Not available Not available 12/16/2017 88009 05 SNOMED [facility] Andino, [place] - [facility] 8 11:58:06 284362 Substance with sulfonami de structure and antibacte rial mechanism of action (substanc e) medicatio n Not available Not available Not available 12/16/2017 19386 8003 SNBEBO Severino, [place] - [facility] 8 11:58:12 437088 Nexium medicatio n Not available Not available Not available 12/16/2017 15338 9 RxNorm [facility] Andino, [place] - [facility] 8 11:58:19 706351 erythromy roxana medicatio n Not available Not available Not available 12/16/2017 4053 RxNorm [facility] Andino, [place] - [facility] 8 11:58:25 830404 Iodinated contrast media (substanc e) medicatio n Not available Not available Not available 12/16/2017 82402 2004 SN[facility]BO Severino, [place] - [facility] 8 11:58:35 648346 ciproflox acin medicatio n Not available Not available Not available 12/16/2017 2551 RxNorm [facility] [place], [place] - [facility] 8 11:58:48 390522 Azactam medicatio n Not available Not available Not available 12/16/201718170 1 RxNorm [facility] [place] 8 11:58:56 061009 aztreonam medicatio n Not available Not available Not available 12/16/2017 1272 RxNorm [facility] Andino, [facility] 8 11:59:03 098894 octreotid e Not available Not available Not available Not available 12/16/2017 7617 RxNorm [facility] [place], [place] 8 11:59:10 766829 duloxetin e medicatio n Not available Not available Not available 12/16/2017 34828 RxNorm [facility] [place], [place] 8 11:59:19 709657 oxycodone medicatio n other Not available Not available 03/19/2021 7804 RxNorm AMY Mane Mathur [facility] [place], [facility] 16:02:30 Medications Name Sig Start Date Stop Date Status Note LastModified by Organization Details LastModified Time Prescriptio n - Change 08/21 completed Not Available Not Available Not Available cyclobenzap rine 10 mg tablet active Not Available Not Available Not Available metformin 500 mg tablet TAKE 2 TABLETS BY MOUTH DAILY 07/25 completed Not Available Not Available Not Available gabapentin 600 mg tablet 11/16 completed Not Available Not Available Not Available clindamycin HCl 300 mg capsule Take 1 capsule every 6 hours by oral route for 10 days. completed Not Available Not Available Not Available Humulin R U-500 (Concentrat ed) Insulin 500 unit/mL subcutaneou s soln Inject 200 units 4 times a day by subcutane ous route. 11/16 completed Not Available Not Available Not Available alprazolam 1 mg tablet TAKE ONE TABLET BY MOUTH 3 TIMES A DAY active Not Available Not Available No t Available Lidocaine Viscous 2 % mucosal solution active Not Available Not Available Not Available ceftriaxone 2 gram intravenous solution Inject 2 g every day by intraveno us route for 27 days. 07/25 completed Not Available Not Available Not Available benzonatate 200 mg capsule Take 1 capsule 3 times a day by oral route as needed for 30 days. 02/24 completed Not Available Not Available Not Available valacyclovi r 1 gram tablet Take 1 tablet every 12 hours by oral route for 7 days. 08/21 completed Not Available Not Available Not Available hydrocodone 5 mg-acetamin ophen 325 mg tablet 06/26 completed Not Available Not Available Not Available ondansetron HCl 8 mg tablet 02/09 completed Not Available Not Available Not Available ondansetron HCl 4 mg tablet TAKE ONE TABLET BY MOUTH TWICE A DAY NEEDED active Not Available Not Available No t Available clindamycin HCl 150 mg capsule Take 1 capsule every 6 hours by oral route for 10 days. 05/13 completed Not Available Not Available Not Available acetaminoph en 300 mg-codeine 30 mg tablet TAKE ONE TABLET BY MOUTH EVERY 8 HOURS NEEDEDP T NEEDS TO CALL OFFICE AND SCHEDULE APPT 08/05 completed Not Available Not Available Not Available prochlorper azine maleate 10 mg tablet Take 1 tablet 3 times a day by oral route for 30 days. 11/16 completed Not Available Not Available Not Available hydrocodone 10 mg-acetamin ophen 325 mg tablet active Not Available Not Available No t Available peg-electro lyte solution 420 gram oral solution completed Not Available Not Available Not Available doxycycline monohydrate 100 mg tablet 05/13 completed Not Available Not Available Not Available tramadol 50 mg tablet TAKE ONE TABLET BY MOUTH THREE TIMES A DAY NEEDED 2022 completed Not Available Not Available Not Available carvedilol 3.125 mg tablet 01/13 completed Not Available Not Available Not Available ketorolac 10 mg tablet 02/24 completed Not Available Not Available Not Available oxycodone-a cetaminophe n 5 mg-325 mg tablet 06/26 completed Not Available Not Available Not Available alprazolam 0.5 mg tablet TAKE ONE TABLET UP TO TWICE A DAY NEEDED FOR SEVERE ANXIETY 06/13 completed Not Available Not Available Not Available famotidine 20 mg tablet TAKE ONE TABLET BY MOUTH TWICE A DAY active Not Available Not Available No t Available amitriptyli ne 25 mg tablet Take 1 tablet every day by oral route at bedtime for 30 days. 06/26 completed Not Available Not Available Not Available methocarbam ol 750 mg tablet 01/13 completed Not Available Not Available Not Available clindamycin 1 % topical gel APPLY A THIN LAYER TO THE affected area(s) by topical route 2 times per day 05/28 completed Not Available Not Available Not Available trazodone 100 mg tablet TAKE ONE TABLET BY MOUTH TWICE A DAY 04/06 completed Not Available Not Available Not Available dicyclomine 20 mg tablet 02/09 completed Not Available Not Available Not Available ticckle Ultra Test strips USE FOR TESTING BEFORE EACH MEAL AND AT BEDTIME active Not Available Not Available No t Available hydrocodone 7.5 mg-acetamin ophen 325 mg tablet 08/04 completed Not Available Not Available Not Available ferrous sulfate 325 mg (65 mg iron) tablet 11/15 completed Not Available Not Available Not Available metformin 1,000 mg tablet Take 2 tablets every day by oral route at bedtime. 01/24 completed Not Available Not Available Not Available triamcinolo ne acetonide 0.1 % topical ointment active Not Available Not Available Not Available buspirone 10 mg tablet TAKE 1 TABLET(S) TWICE A DAY BY ORAL ROUTE FOR 30 DAYS.
02/09 completed Not Available Not Available Not Available prednisone 50 mg tablet TAKE 1 TABLET BY MOUTH 13 HOURS, 7 HOURS, AND 1 HOUR BEFORE PROCEDURE 06/26 completed Not Available Not Available Not Available lidocaine 5 % topical patch APPLY 1 PATCH BY TOPICAL ROUTE ONCE DAILY (MAY WEAR UP TO 12HOURS.) 11/16 completed Not Available Not Available Not Available albuterol sulfate 2 mg/5 mL oral syrup TAKE 5ML BY MOUTH THREE TIMES A DAY NEEDED 02/24 completed Not Available Not Available Not Available indomethaci n 50 mg capsule Take 1 capsule 3 times a day by oral route for 7 days. 05/28 completed Not Available Not Available Not Available omeprazole 20 mg capsule,del ayed release TAKE 1 CAPSULE BY MOUTH TWICE A DAY 02/24 completed Not Available Not Available Not Available hydroxyzine HCl 25 mg tablet TAKE ONE TABLET BY MOUTH 4 TIMES A DAY 04/06 completed Not Available Not Available Not Available codeine 10 mg-guaifene sin 100 mg/5 mL oral liquid 10 ml q 6 hours prn completed Not Available Not Available Not Available hydrochloro thiazide 25 mg tablet TAKE ONE TABLET BY MOUTH DAILY 01/13 completed Not Available Not Available Not Available ergocalcife rol (vitamin D2) 1,250 mcg (50,000 unit) capsule TAKE 1 CAPSULE BY MOUTH WEEKLY FOR 12 WEEKS ONLY 05/28 completed Not Available Not Available Not Available albuterol sulfate HFA 90 mcg/actuati on aerosol inhaler INHALE 2 PUFFS BY MOUTH EVERY 4 HOURS NEEDED active Not Available Not Available No t Available ketoconazol e 2 % topical cream APPLY TO THE AFFECTED AREA(S) BY TOPICAL ROUTE ONCE DAILY 02/24 completed Not Available Not Available Not Available indomethaci n ER 75 mg capsule,ext ended release 04/06 completed Not Available Not Available Not Available ondansetron 4 mg disintegrat ing tablet 09/16 completed Not Available Not Available Not Available metformin ER 500 mg tablet,exte nded release 24 hr 03/03 completed Not Available Not Available Not Available Enulose 10 gram/15 mL oral solution TAKE 30ML. BY MOUTH TWICE A DAY active Not Available Not Available No t Available naproxen 500 mg tablet active Not Available Not Available Not Available metoclopram james 10 mg tablet 02/09 completed Not Available Not Available Not Available oxycodone 5 mg tablet 02/11 completed Not Available Not Available Not Available cyclobenzap rine 5 mg tablet 11/16 completed Not Available Not Available Not Available alfuzosin ER 10 mg tablet,exte nded release 24 hr 02/09 completed Not Available Not Available Not Available rifaximin 200 mg tablet Take 1 tablet twice a day by oral route. 02/14 completed Not Available Not Available Not Available nitrofurant oin monohydrate /macrocryst als 100 mg capsule Take 1 capsule twice a day by oral route for 7 days. 02/23 /2022 completed Not Available Not Available Not Available duloxetine 30 mg capsule,del ayed release 01/13 completed Not Available Not Available Not Available pregabalin 75 mg capsule 05/14 completed Not Available Not Available Not Available pregabalin 150 mg capsule active Not Available Not Available Not Available pregabalin 200 mg capsule active Not Available Not Available Not Available Hydrocodone 10 mg 4x a day 02/11 completed Not Available Not Available Not Available Lantus Solostar U-100 Insulin 100 unit/mL (3 mL) subcutaneou s pen INJECT 35 UNITS SUBCUTANE OUSLY IN THE MORNING AND 50 UNITS IN THE EVENING 03/08 completed Not Available Not Available Not Available Humalog KwikPen (U-100) Insulin 100 unit/mL subcutaneou s INJECT 22 UNITS SUBCUTANE OUSLY WITH EACH MEAL ISF: 15>150 DO NOT TAKE IF YOU DO NOT EAT A MEAL MAX DAILY DOSE OF 150 03/03 completed Not Available Not Available Not Available Eucerin Original lotion Apply 1 applicati on every day by topical route as needed. 2023 active Not Available Not Available Not Avai lable rifaximin 550 mg tablet Take 1 tablet twice a day by oral route. active Not Available Not Available No t Available lidocaine 5 % topical ointment APPLY TO AFFECTED AREA(S) BY TOPICAL ROUTE 1-4 TIMES DAILY NEEDED 06/26 completed Not Available Not Available Not Available OneTouch Delica Lancets 30 gauge active Not Available Not Available Not Available Victoza 3-Anatoliy 0.6 mg/0.1 mL (18 mg/3 mL) subcutaneou s pen injector INJECT 1.8 MG UNDER THE SKIN DAILY 05/28 completed Not Available Not Available Not Available Trulicity 0.75 mg/0.5 mL subcutaneou s pen injector INJECT 0.75MG SUBCUTANE OUSLY WEEKLY FOR FOUR WEEKS THEN INCREASE TO 1.5MG ONCE A WEEK DIRECTED active Not Available Not Available No t Available naloxone 4 mg/actuatio n nasal spray active Not Available Not Available Not Available Humulin R U-500 (Conc) Insulin Kwikpen 500 unit/mL (3 mL) subcutaneou s INJECT 150 UNITS SUBCUTANE OUSLY 4 TIMES A DAY active Not Available Not Available No t Available Humulin R U-500 (Conc) Kwikpen 200 Units 4 times a day 06/26 completed Not Available Not Available Not Available TRUEplus Pen Needle 31 gauge x /16 USE DIRECTED 4 TIMES A DAY DXDX E11.9 active Not Available Not Available No t Available BD Insulin Syringe U-500 1/2 mL 31 gauge x 15/64 08/21 completed Not Available Not Available Not Available Ozempic 0.25 mg or 0.5 mg (2 mg/1.5 mL) subcutaneou s pen injector Inject every week by subcutane ous route. 02/24 completed Not Available Not Available Not Available OneTouch Ultra Blue Test Strip USE 1 STRIP 3 TIMES DAILY 08/21 completed Not Available Not Available Not Available OneTouch Ultra2 Meter active Not Available Not Available Not Available OneTouch Delica Plus Lancet 33 gauge active Not Available Not Available Not Available Lagevrio 200 mg capsule (EUA) TAKE 4 CAPSULES BY MOUTH EVERY 12 HOURS 05/28 completed Not Available Not Available Not Available Dexcom G7 Sensor device CHANGE SENSOR EVERY 10 DAYS active Not Available Not Available No t Available Vitals Date Recorded Body height Body mass index (BMI) Body weight Oxygen saturation Oxygen saturation in Arterial blood by Pulse oximetry Heart rate Systolic blood pressure Diastolic blood pressure Provider Name and Address Organization Details Last Updated DateTime 4 171.45 cm 34.5 kg/m2 205252. 9 g 95 % 95 % 102 /min 149 mm[Hg] 91 mm[Hg] Karina Alvarez [place] [facility] 4 10:09:39 Social History Question Answer Notes LastModified by Organizat ion Details LastModified Time Tobacco Smoking Status Former Smoker Julia Guerrier MA [facility], [place] - [facility] 12/16/2017 12:02:47 What Is Your Level Of Alcohol Consumption? None Former Information not available 12/16/2017 What Is Your Level Of Caffeine Consumption? Moderate Diet Soda Information not available 05/13/2018 How Much Tobacco Do You Chew? None Information not available 05/13/2018 In The 14 Days Before Symptom Onset, Have You Had Close Contact With A Laboratory-denisse zapataed COVID-19 While That Case Was Ill? No Information not available 07/25/2020 In The 14 Days Before Symptom Onset, Have You Had Close Contact With A Person Who Is Under Investigation For COVID-19 While That Person Was Ill? No Information not available 07/25/2020 Have You Been To An Area Known To Be High Risk For COVID-19? No Information not available 07/25/2020 Are You Currently Employed? No Information not available 01/25/2020 What Type Of Diet Are You Following? REGULAR Information not available 05/13/2018 Which Illicit Or Recreational Drugs Have You Used? None Information not available 05/13/2018 Do You Or Have You Ever Used E-cigarettes Or Vape? Never Used Electronic Cigarettes Information not available 01/25/2020 What Is Your Occupation? Disablied Information not available 01/25/2020 Are There Any Guns Present In Your Home? No Information not available 10/27/2022 Live Alone Or With Others? With Others Information not available 01/25/2020 What Was The Date Of Your Most Recent Tobacco Screening? 04/06/2024 Information not available 04/06/2024 What Is Your Relationship Status? Information not available 06/13/2020 Do You Use Your Seat Belt Or Car Seat Routinely? Yes Information not available 2020 Are You Sexually Active? No Information not available 10/27/2022 Do You Have Smoke And Carbon Monoxide Detectors In Your Home? Yes Information not available 2020 Are You Passively Exposed To Smoke? No Information not available 10/27/2022 Do You Or Have You Ever Used Smokeless Tobacco? Never Used Smokeless Tobacco Information not available 01/25/2020 General Stress Level Medium Information not available 06/08/2020 Do You Feel Stressed (tense, Restless, Nervous, Or Anxious, Or Unable To Sleep At Night)? [id number] [email or web address] Information not available 08/21/2021 Do You Use Any Illicit Or Recreational Drugs? No Information not available 07/25/2020 Do You Use Sunscreen Routinely? No Information not available 10/27/2022 Has Tobacco Cessation Counseling Been Provided? No Information not available 2020 On What Date Was Tobacco Cessation Counseling Provided? 04/06/2024 Information not available 04/06/2024 Do You Or Have You Ever Used Any Other Forms Of Tobacco Or Nicotine? No Information not available 2020 Sex: Unknown Functional Status Question Answer Note LastModified by Organization D etails LastModified Time Are you able to care for yourself? Yes Information n ot available 01/25/2020 What is your exercise level? None Information not available 10/27/2022 Mental Status None recorded. Family History Relationship Description Onset Age of this Age Resolved Age Notes LastModified by Organization Details LastModified Time Father Alcohol abuse [email or web address] Not available 12/16 12:02:30 Father Family history of malignant neoplasm [email or web address] Not available 12/16 12:02:41 Mother Family history of malignant neoplasm [email or web address] Not available 12/16 12:02:41 Medical History Condition Response Coronary Artery Disease N Other Y High Blood Pressure N Atrial Fibrillation N Kidney or Bladder Problems N Thyroid Problems N GI Problems Y Depression Y COPD N Blood Clots N Skin Problems N Anemia N Heart Attack (PR) N Anxiety Disorder Y Diabetes Y Muscle, Joint, or Bone Problems N Seizures/Epilepsy N Acid Reflux (GERD) N Cancer N Stroke N Asthma N Allergies Y High Cholesterol N Hepatitis N Liver Disease Y Headaches Y Heart Failure N Osteoporosis N Immunizations Vaccine Type Date Status Note Provider Nam e and Address Organization Details Recorded Time COVID-19, mRNA, LNP-S, PF, 30 mcg/0.3 mL dose 12/08/2020 completed Not Available [facility] 4 10:49:05 COVID-19, mRNA, LNP-S, PF, 30 mcg/0.3 mL dose 12/29/2020 completed Not Available [facility] 4 10:49:05 Hep A-Hep B 09/10/2015 completed Amanda Amin MA null, [place] - [facility] 07/20/2023 09:11:13 Past Encounters Encounter ID Performer Location Encounter Start Date Encounter Closed Date Diagnosis/Indication Diagnosis SNOMED-CT Code Diagnosis ICD10 Code [id number] Janeth Pavon PA-C [facility] [address] [place] [address] 03/08/2024 14:46:39 03/09/2024 16:00:13 Seizure 58016715 G40.89 Uncontroll ed type 2 diabetes mellitus 167904080 E11.65 Dissociati ve convulsions 558626383 F44.5 Overweight 940653801 E66 .3 [id number] Janeth Pavon PA-C [facility] [address] [place] [address] 03/23/2024 10:36:19 03/28/2024 10:16:17 Lumbar radiculopathy 843151042 M54.16 Uncontroll ed type 2 diabetes mellitus 620690370 E11.65 Overweight 860043616 E66 .3 [id number] Janeth Pavon PA-C [facility] [address] [place] [address] 04/06/2024 09:53:53 04/06/2024 16:23:24 Dysuria 69048859 R30.0 Uncontroll ed type 2 diabetes mellitus 509147545 E11.65 Generalize d anxiety disorder 85813263 F41.1 Overweight 267493306 E66 .3 Health Concerns Section Related Observation LastModified by Organization Detai ls LastModified Time None Recorded Concern Status LastModified by Organization Details LastModified Time None Recorded Payers Encounter Date Sequence Insurance Name Policy Number Policy Cordero Covered Member ID Cordero Member ID Guarantor Name 04/06/2024 1 [employer] [place] ON OR AFTER 2020 (MEDICAID REPLACEMENT - HMO) Camilo Curry [id number] Camilo Curry Notes Date Note Type Note Provider Name and Address Organization Details Recorded Time 04/06/2024 text/html has burning urination for a week... every hour frequency...says he has been drinking nikhil justice vs nausea...also needs something for sedation for MRI Janeth Pavon PA-C Attn: Accounting,[address] [place], [address], [facility] 04/06/2024 10:29:01
--- OUTSIDE RECORDS SUMMARY | 2024-04-19 23:06 | XMS_ITS | Data Portability ---
Author Organization [facility]ST[facility]ie Address [address] [place] [address] Care Team Providers Care Unarmed Security Officer Name Role Phone JANETH PAVON Primary Care Provider Assessment No assessment recorded. Plan of Treatment Reminders Order Date Submit Date Provider Last Modified By Organization Details Last Modified Time Details Appointments None recorded. Lab urinalysis , dipstick 2023 024 SALINE In-Office Order, Internal Use Only DO Not Attach Compendium DO Not Attach Compendium, Do Not Delete/merge, [id number] 4 10:17:29 Referral endocrinol ogy referral 2023 024 MICKEY Power MD, [address] [place], [address], 4 09:49:[address] referral 2023 024 dtmarjan Whatley MD, [address], [address], 4 10:45:50 Procedures None recorded. Surgeries None recorded. Imaging MRI, lumbar spine, w/o contrast 2023 024 [facility], [address] [place], [address], 4 07:55:02 Medication Orders None recorded. Patient TargetsNo targets recorded. Patient Instructions Encounter Date Encounter Id Patient Instructions Last Modified By Organization Details Last Modified Time 01/26/2024 [id number] A healthy lifestyle: care instructions jnanney Not available 01/26/2024 11:30:21 learning about type 2 diabetes jnanney Not available 01/26/2024 11:24:47 type 2 diabetes: care instructions jnanney Not available 01/26/2024 11:24:47 cirrhosis: care instructions jnanney Not available 01/26/2024 11:24:47 liver disease diet: care instructions jnanney Not available 01/26/2024 11:24:47 03/03/2024 [id number] A healthy lifestyle: care instructions jnanney Not available 03/03/2024 11:27:32 03/08/2024 [id number] A healthy lifestyle: care instructions jnanney Not available 03/08/2024 15:26:42 type 2 diabetes: care instructions jnanney Not available 03/08/2024 15:26:42 03/23/2024 [id number] A healthy lifestyle: care instructions jnanney Not available 03/23/2024 11:17:48 type 2 diabetes: care instructions jnanney Not available 03/23/2024 11:17:48 04/06/2024 [id number] painful urinatio n (dysuria): care instructions jnanney Not available 04/06/2024 10:11:20 When You Want to Lose Weight: Care Instructions jnanney Not available 04/06/2024 10:27:46 type 2 diabetes: care instructions jnanney Not available 04/06/2024 10:27:46 Reason for Referral Endocrinology Referral for T ype 2 diabetes mellitus Referring Physician: Janeth Pavon [facility], Encounter Date: 01/26/2024 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 Referral for Ci rrhosis of liver Referring Physician: Janeth Pavon [facility], Encounter Date: 01/26/2024 Results Created Date Observation Date Name Description Value Unit Range Abnormal Flag Note LastModifiedBy Organization Detail LastModifiedTime 01/14/2001/14/2024 drug scree n, urine Methamphetam ine Negati ve Not Available In-Office Order Internal Use Only DO Not Attach Compendium DO Not Attach Compendium, Do Not Delete/merge, [id number] 01/14/2024 09:08:26 01/14/20 24 01/14/2024 drug scree n, urine THC Negati ve Not Available In-Office Order Internal Use Only DO Not Attach Compendium DO Not Attach Compendium, Do Not Delete/merge, 01/14/2024 09:08:26 01/14/20 24 01/14/2024 drug scree n, urine Cocaine (Dylan) Negati ve Not Available In-Office Order Internal Use Only DO Not Attach Compendium DO Not Attach Compendium, Do Not Delete/merge, 01/14/2024 09:08:26 01/14/20 24 01/14/2024 drug scree n, urine Benzodiazepi ne (Bzo) Negati ve Not Available In-Office Order Internal Use Only DO Not Attach Compendium DO Not Attach Compendium, Do Not Delete/merge, 01/14/2024 09:08:26 01/14/2001/14/2024 drug scree n, urine Methadone (Mtd) Negati ve Not Available In-Office Order Internal Use Only DO Not Attach Compendium DO Not Attach Compendium, Do Not Delete/merge, 01/14/2024 09:08:26 01/14/2001/14/2024 drug scree n, urine Buprenorphin e (Bup) Negati ve Not Available In-Office Order Internal Use Only DO Not Attach Compendium DO Not Attach Compendium, Do Not Delete/merge, 01/14/2024 09:08:26 01/14/2001/14/2024 drug scree n, urine Oxycodone (Oxy) Negati ve Not Available In-Office Order Internal Use Only DO Not Attach Compendium DO Not Attach Compendium, Do Not Delete/merge, 01/14/2024 09:08:26 01/14/2001/14/2024 drug scree n, urine Barbiturates (Bar) Negati ve Not Available In-Office Order Internal Use Only DO Not Attach Compendium DO Not Attach Compendium, Do Not Delete/merge, 01/14/2024 09:08:26 01/14/20 24 01/14/2024 drug scree n, urine MDMA (Ecstacy) Negati ve Not Available In-Office Order Internal Use Only DO Not Attach Compendium DO Not Attach Compendium, Do Not Delete/merge, 01/14/2024 09:08:26 01/14/20 24 01/14/2024 drug scree n, urine Amphetamines (Amp) Negati ve Not Available In-Office Order Internal Use Only DO Not Attach Compendium DO Not Attach Compendium, Do Not Delete/merge, 01/14/2024 09:08:26 01/14/20 24 01/14/2024 drug scree n, urine Opiates (opi) Positi ve Not Available In-Office Order Internal Use Only DO Not Attach Compendium DO Not Attach Compendium, Do Not Delete/merge, 01/14/2024 09:08:26 01/14/20 24 01/14/2024 drug scree n, urine Phencyclidin e (Pcp) Negati ve Not Available In-Office Order Internal Use Only DO Not Attach Compendium DO Not Attach Compendium, Do Not Delete/merge, 01/14/2024 09:08:26 01/14/20 24 01/14/2024 drug scree n, urine Tricyclic Antidepressa nts Invali d Not Available In-Office Order Internal Use Only DO Not Attach Compendium DO Not Attach Compendium, Do Not Delete/merge, 01/14/2024 09:08:26 01/14/20 24 01/14/2024 drug scree n, urine Fentanyl Negati ve Not Available In-Office Order Internal Use Only DO Not Attach Compendium DO Not Attach Compendium, Do Not Delete/merge, 01/14/2024 09:08:26 01/14/20 24 01/14/2024 gluco se, finge rstic k, blood Blood Glucose: mg/dl 571 Not Available In-Off ice Order Internal Use Only DO Not Attach Compendium DO Not Attach Compendium, Do Not Delete/merge, 01/14/2024 09:38:32 04/06/20 24 04/06/2024 urina lysis , dipst ick Leukocytes Negati ve Not Available In-Office Order Internal Use Only DO Not Attach Compendium DO Not Attach Compendium, Do Not Delete/merge, [id number] 04/06/2024 10:08:18 04/06/20 24 04/06/2024 urina lysis , dipst ick Nitrite negati ve Not Available In-Office Order Internal Use Only DO Not Attach Compendium DO Not Attach Compendium, Do Not Delete/merge, [id number] 04/06/2024 10:08:18 04/06/20 24 04/06/2024 urina lysis , dipst ick Urobilinogen .2 Not Available In-Of fice Order Internal Use Only DO Not Attach Compendium DO Not Attach Compendium, Do Not Delete/merge, 04/06/2024 10:08:18 04/06/20 24 04/06/2024 urina lysis , dipst ick Protein Negati ve Not Available In-Office Order Internal Use Only DO Not Attach Compendium DO Not Attach Compendium, Do Not Delete/merge, [id number] 04/06/2024 10:08:18 04/06/20 24 04/06/2024 urina lysis , dipst ick pH 6.0 Not Available In-Office Order Internal Use Only DO Not Attach Compendium DO Not Attach Compendium, Do Not Delete/merge, [id number] 04/06/2024 10:08:18 04/06/20 24 04/06/2024 urina lysis , dipst ick Blood Negati ve Not Available In-Office Order Internal Use Only DO Not Attach Compendium DO Not Attach Compendium, Do Not Delete/merge, [id number] 04/06/2024 10:08:18 04/06/20 24 04/06/2024 urina lysis , dipst ick Specific Gantt 1.015 Not Available In-Off ice Order Internal Use Only DO Not Attach Compendium DO Not Attach Compendium, Do Not Delete/merge, [id number] 04/06/2024 10:08:18 04/06/20 24 04/06/2024 urina lysis , dipst ick Ketone Trace Not Available In-Office Order Internal Use Only DO Not Attach Compendium DO Not Attach Compendium, Do Not Delete/merge, [id number] 04/06/2024 10:08:18 04/06/20 24 04/06/2024 urina lysis , dipst ick Bilirubin Negati ve Not Available In-Office Order Internal Use Only DO Not Attach Compendium DO Not Attach Compendium, Do Not Delete/merge, [id number] 04/06/2024 10:08:18 04/06/20 24 04/06/2024 urina lysis , dipst ick Glucose 1000 Not Available In-Office Order Internal Use Only DO Not Attach Compendium DO Not Attach Compendium, Do Not Delete/merge, [id number] 04/06/2024 10:08:18 04/06/20 24 04/06/2024 urina lysis , dipst ick Appearance Clear Not Available In-Offi ce Order Internal Use Only DO Not Attach Compendium DO Not Attach Compendium, Do Not Delete/merge, [id number] 04/06/2024 10:08:18 04/06/20 24 04/06/2024 urina lysis , dipst ick Color Yellow Not Available In-Office Order Internal Use Only DO Not Attach Compendium DO Not Attach Compendium, Do Not Delete/merge, [id number] 04/06/2024 10:08:18 01/14/20 24 01/14/2024 XR, chest No observ ation record ed. [facility] [address] [place], [address], 01/14/2024 11:28:00 01/23/20 24 01/23/2024 CT, abdom en + pelvi s, w/ contr ast No observ ation record ed. [facility] [address] [place], [address], 01/25/2024 08:58:30 02/24/20 24 02/23/2024 XR, abdom en No observ ation record ed. [facility] [address] [place], [address], 02/24/2024 08:59:19 04/17/20 24 04/16/2024 MRI, lumba r spine , w/o contr ast No observ ation record ed. [facility] [address] [place], [address], 04/18/2024 12:31:37 Result Notes None recorded. Problems Name Problem SNOMED Code Status Onset Date Resolution Date Notes Provider Name and Address Organization Details Recorded Time Diabetes mellitus 08215839 Active 2018 Amanda Amin [place], [place] [facility] 1 10:51:15 Liver finding 927419761 Active 2018 Amanda Amin [place] [facility] 1 10:51:15 Hyperglycem ia due to type 2 diabetes mellitus 2176447531135 09 Active Amanda Amin [place] [facility] 4 09:09:59 Type 2 diabetes mellitus in obese 42361908 Active Amanda Amin [place] [facility] 1 10:51:15 Bacteremia 6027865 Active Amanda Amin [place] [facility] 10:51:15 Gastroesoph ageal reflux disease 741009219 Active Amanda Amin [place] [facility] 10:51:15 Abscess 686258986 Active Amanda Amin [place] [facility] 10:51:15 Backache 146692484 Active Amanda Amin [place] [facility] 10:51:15 Hepatic failure 58399795 Active Amanda Amin [place] [facility] 10:51:15 Problem Notes None recorded. Procedures Surgical History Date Name Laterality Status Provider Name and Address Organization Details Recorded Time 6 colonoscopy completed Amanda Amin [place] [facility] 11/15/2021 15:39:15 Imaging Results Imaging Date Name Status LastModified by Organiz ation Details LastModified Time 01/14/2024 XR, chest completed [email or web address] [facility] [address] [place], [address], 01/14/2024 11:28:00 01/23/2024 CT, abdomen + pelvis, w/ contrast completed [facility] [address] [place], [address], 01/25/2024 08:58:30 02/23/2024 XR, abdomen completed [facility] [address] [place], [address], 02/24/2024 08:59:19 04/16/2024 MRI, lumbar spine, w/o contrast completed [facility] [address] [place], [address], 04/18/2024 12:31:37 Procedure Notes None recorded. Medical Equipment None Reported. Allergies Allergen ID Allergen Name Allergen Category Reaction Reaction Severity Criticality Documentation Date Start Date Code Code System Note Provider Name and Address Organization Details Recorded Time 528060 Medicinal product containin g penicilli n and acting as antibacte rial agent (product) medicatio n Not available Not available Not available 12/16/2017 37738 05 SNOMED BEBO [place], [place] - [facility] 8 11:58:06 953471 Substance with sulfonami de structure and antibacte rial mechanism of action (substanc e) medicatio n Not available Not available Not available 12/16/2017 31392 8003 SNBEBO [place], [place] - [facility] 8 11:58:12 508185 Nexium medicatio n Not available Not available Not available 12/16/2017 88459 9 RxNorm BEBO [place], [place] - [facility] 8 11:58:19 339566 erythromy roxana medicatio n Not available Not available Not available 12/16/2017 4053 RxBetzaidarm BEBO [place], [place] - [facility] 8 11:58:25 600929 Iodinated contrast media (substanc e) medicatio n Not available Not available Not available 12/16/2017 53794 2004 SNBEBO [place], [place] - [facility] 8 11:58:35 515526 ciproflox acin medicatio n Not available Not available Not available 12/16/2017 2551 RxNorm BEBO [place], [place] [facility] 8 11:58:48 858231 Azactam medicatio n Not available Not available Not available 12/16/201702632 1 RxNorm BEBO [place], [place] [facility] 8 11:58:56 749077 aztreonam medicatio n Not available Not available Not available 12/16/2017 1272 RxNorm BEBO [place] [facility] 8 11:59:03 294082 octreotid e Not available Not available Not available Not available 12/16/2017 7617 RxNorm BEBO [place] [facility] 8 11:59:10 679377 duloxetin e medicatio n Not available Not available Not available 12/16/2017 15514 RxNorm BEBO [place], [place] [facility] 8 11:59:19 392594 oxycodone medicatio n other Not available Not available 03/19/2021 7804 RxNorm AMY Mane Mathur BEBO [place], [place] - [facility] 16:02:30 Medications Name Sig Start Date [...] completed Not Available Not Available Not Available [employer] Ultra Test strips USE FOR TESTING BEFORE [...] day by oral route for 7 days. 06/26 completed Not Available Not Available [...] Available [employer] Pen Needle 31 gauge x 5/16 USE DIRECTED 4 TIMES A DAY DXDX [...] completed Not Available Not Available Not Available [employer] G7 Sensor device CHANGE SENSOR EVERY 10 DAYS active Not Available Not Available No t Available Vitals Date Recorded Body height Body mass index (BMI) Body weight Oxygen saturation Oxygen saturation in Arterial blood by Pulse oximetry Heart rate Systolic blood pressure Diastolic blood pressure Provider Name and Address Organization Details Last Updated DateTime 4 171.45 cm 34.3 kg/m2 694078. 51 g 98 % 98 % 92 /min 117 mm[Hg] 78 mm[Hg] Karina Alvarez [place] - [facility] 4 10:58:53 Date Recorded Body height Body mass index (BMI) Body weight Oxygen saturation Oxygen saturation in Arterial blood by Pulse oximetry Heart rate Systolic blood pressure Diastolic blood pressure Provider Name and Address Organization Details Last Updated DateTime 4 171.45 cm 34.6 kg/m2 287157. 69 g 96 % 96 % 108 /min 121 mm[Hg] 81 mm[Hg] Karina Alvarez [place] - [facility] 4 11:08:58 Date Recorded Body height Body mass index (BMI) Body weight Oxygen saturation Oxygen saturation in Arterial blood by Pulse oximetry Heart rate Systolic blood pressure Diastolic blood pressure Provider Name and Address Organization Details Last Updated DateTime 4 171.45 cm 34.9 kg/m2 059251. 28 g 95 % 95 % 94 /min 139 mm[Hg] 80 mm[Hg] Karina Alvarez MA [facility] 4 14:55:26 Date Recorded Body height Body mass index (BMI) Body weight Oxygen saturation Oxygen saturation in Arterial blood by Pulse oximetry Heart rate Systolic blood pressure Diastolic blood pressure Provider Name and Address Organization Details Last Updated DateTime 4 171.45 cm 35 kg/m2 093936. 47 g 97 % 97 % 97 /min 128 mm[Hg] 81 mm[Hg] Karina Alvarez MA [facility] 4 10:54:27 Date Recorded Body height Body mass index (BMI) Body weight Oxygen saturation Oxygen saturation in Arterial blood by Pulse oximetry Heart rate Systolic blood pressure Diastolic blood pressure Provider Name and Address Organization Details Last Updated DateTime 4 171.45 cm 34.5 kg/m2 630868. 9 g 95 % 95 % 102 /min 149 mm[Hg] 91 mm[Hg] Karina Alvarez MA [facility] 4 10:09:39 Social History Question Answer Notes LastModified by Organizat ion Details LastModified Time Tobacco Smoking Status Former Smoker Julia Guerrier MA [facility] 12/16/2017 12:02:47 What Is Your Level Of Alcohol Consumption? None Former Information not available 12/16/2017 What Is Your Level Of Caffeine Consumption? Moderate Diet Soda Information not available 05/13/2018 How Much Tobacco Do You Chew? None Information not available 05/13/2018 In The 14 Days Before Symptom Onset, Have You Had Close Contact With A Laboratory-confi rmed COVID-19 While That Case Was Ill? No [...] Anxious, Or Unable To Sleep At Night)? [id number] [email or web address] Information not available 08/21/2021 Do You [...] Response Coronary Artery Disease N Other Y Atrial Fibrillation N High Blood Pressure N Thyroid Problems N Kidney or Bladder Problems N Depression Y COPD N Blood Clots N GI Problems Y Skin Problems N Anemia N Heart Attack ([place]) N Diabetes Y Anxiety Disorder Y Muscle, Joint, or Bone Problems N Seizures/Epilepsy N Acid Reflux (GERD) N Cancer N Stroke N Allergies Y Asthma N High Cholesterol N Hepatitis N Liver Disease Y Headaches Y Osteoporosis N Heart Failure N Immunizations Vaccine Type Date Status Note Provider Nam e and Address Organization Details Recorded Time COVID-19, mRNA, LNP-S, PF, 30 mcg/0.3 mL dose 12/08/2020 completed Not Available [facility] 4 10:49:05 COVID-19, mRNA, LNP-S, PF, 30 mcg/0.3 mL dose 12/29/2020 completed Not Available [facility] 4 10:49:05 Hep A-Hep B 09/10/2015 completed Amanda Amin MA [place], [place] - [facility] 07/20/2023 09:11:13 Past Encounters Encounter ID Performer Location Encounter Start Date Encounter Closed Date Diagnosis/Indication Diagnosis SNOMED-CT Code Diagnosis ICD10 Code [id number] Julia Guerrier MA [facility] [address] [place] [address] 12/16/2017 11:36:06 12/16/2017 12:52:59 Nonalcoholic steatohepatitis 945088004 K75.81 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 740784367 I85.10 Type 2 obdulio betes mellitus 48411906 E11.9 [id number] TOM Kunz [address] [place] [address] 12/23/2017 11:30:06 12/23/2017 12:45:09 Diabetes mellitus 05425896 E11.69 Cholecystitis 48943078 K 80.01 End stage liver disease 875106236 K72.[id number] [facility] [address] [place] [address] 02/11/2018 15:41:09 02/11/2018 16:48:42 Generalized anxiety disorder 56234619 F41.1 Uncontroll ed type 2 diabetes mellitus 771036630 E11.[id number] [facility] [address] [place] [address] 03/02/2018 15:31:55 03/02/2018 16:08:34 End stage liver disease 783513888 K72.00 Uncontroll ed type 2 diabetes mellitus 297911161 E11.65 [id number] [facility] [address] [place] [address] 05/13/2018 15:37:41 05/13/2018 17:17:50 End stage liver disease 107970192 K72.[id number] [facility] [address] [place] [address] 05/25/2018 11:13:32 05/25/2018 11:43:34 End stage liver disease 043997198 K72.00 Dyspnea on exertion 6084 5006 R06.09 Tachycardia 3154502 R00. 0 On examina tion - deep seated pustules 979973693 L08.[id number] [facility] [address] [place] [address] 06/14/2018 10:19:40 06/14/2018 11:01:20 Diabetes mellitus 99498189 E11.69 End stage liver disease 841124324 K72.00 Lumbar radiculopathy 128 347933 M54.[id number] [facility] [address] [place] [address] 02/09/2019 14:30:46 02/09/2019 15:35:07 Diabetes mellitus 73194979 E11.69 Increased frequency of urination 370385255 R35.0 [id number] Janeth Pavon PA-C [facility] [address] [place] [address] 03/22/2019 15:44:00 03/22/2019 17:48:00 Anemia due to chronic blood loss 812821442 D50.0 Nonalcohol ic steatohepatitis 572981529 K75.81 Type 2 obdulio betes mellitus without complication 799638349 E11.9 Low back pain 468558104 M54.5 Increased frequency of urination 565257643 R35.0 Hepatic encephalopathy 99612787 K72.90 [id number] Janeth Pavon PA-C [facility] [address] [place] [address] 08/01/2019 11:23:53 08/01/2019 12:28:44 Cirrhosis of liver 95606715 K74.69 [id number] Janeth Pavon PA-C [facility] [address] [place] [address] 08/17/2019 09:24:17 08/24/2019 11:34:51 Diabetes mellitus 33709055 E11.69 Lumbar radiculopathy 128 200149 M54.16 [id number] Janeth Pavon PA-C [facility] [address] [place] [address] 08/31/2019 14:50:58 09/02/2019 14:48:06 Acute bronchitis with bronchospasm 64302546 J20.9 [id number] Janeth Pavon PA-C [facility] [address] [place] [address] 12/19/2019 09:34:48 12/19/2019 15:21:39 [id number] Janeth Pavon PA-C [facility] [address] [place] [address] 12/23/2019 09:37:23 12/23/2019 15:52:54 Diabetes mellitus 15164688 E11.69 Obstructiv e sleep apnea syndrome 90775791 G47.33 End stage liver disease 494772240 K72.00 Thoracic back pain 14543 8004 M54.6 [id number] Janeth Pavon PA-C [facility] [address] [place] [address] 01/25/2020 09:34:10 01/25/2020 15:21:39 Lumbar radiculopathy 775173798 M54.16 [id number] Janeth Pavon PA-C [facility] [address] [place] [address] 02/23/2020 09:42:16 02/23/2020 16:52:05 Diabetes mellitus 47693516 E11.69 Renal mass 462211233 N28 .89 Neoplasm of kidney 74841 0001 D49.221 [id number] Janeth Pavon PA-C [facility] [address] [place] [address] 06/13/2020 11:39:18 06/14/2020 10:53:35 Nonalcoholic steatohepatitis 081336739 K75.81 Uncontroll ed type 2 diabetes mellitus 678290116 E11.65 [id number] Janeth Pavon PA-C [facility] [address] [place] [address] 07/25/2020 11:21:27 07/25/2020 14:13:47 Long-term drug therapy 874268202 Z79.899 Gastroesop hageal reflux disease without esophagitis 417772616 K21.9 Hematochezia 332277299 K 92.1 Nausea and vomiting 1693 2000 R11.2 Pityriasis rosea 1442690 4 L42 Type 2 obdulio betes mellitus 35134976 E11.9 [id number] Janeth Pavon PA-C [facility] [address] [place] [address] 07/27/2020 10:05:37 07/31/2020 10:18:42 Uncontrolled type 2 diabetes mellitus 047782705 E11.65 [id number] Janeth Pavon PA-C [facility] [address] [place] [address] 2020 11:20:02 09/08/2020 12:42:46 Tinea corporis 50934726 B35.4 Abscess 127613398 L02.91 [id number] Janeth Pavon PA-C [facility] [address] [place] [address] 11/16/2020 10:47:40 11/16/2020 11:46:55 Exanthem due to herpes zoster 186293918 B02.8 [id number] Janeth Pavon PA-C [facility] [address] [place] [address] 06/26/2021 15:54:46 06/26/2021 17:00:08 Long-term drug therapy 138255376 Z79.899 Low back pain 106123601 M54.51 Body mass index 30+ - obesity 037042211 Z68.39 Screening for malignant neoplasm of prostate 248941476 Z12.5 [id number] Janeth Pavon PA-C [facility] [address] [place] [address] 08/21/2021 11:08:46 08/21/2021 12:35:42 Adult health examination 969926864 Z00.00 Backache 333731988 M54.9 [id number] Janeth Pavon PA-C [facility] [address] [place] [address] 11/15/2021 15:33:53 11/18/2021 10:03:54 Hyperglycemia due to type 2 diabetes mellitus 3998883178 12573 E11.65 Type 2 obdulio betes mellitus 77780290 E11.9 Morbid obesity 882187410 E66.01 End stage liver disease 573709705 K72.[id number] [facility] [address] [place] [address] 05/28/2022 16:19:55 05/28/2022 17:17:07 Uncontrolled type 2 diabetes mellitus 695153111 E11.65 Chronic back pain 090917 002 M54.05 Overweight 444685850 E66 .3 Urinary incontinence 165 672507 R32 Generalize d anxiety disorder 00882529 F41.1 Backache 822078895 M54.[id number] [facility] [address] [place] [address] 10/27/2022 14:34:16 10/28/2022 10:40:36 Long-term drug therapy 648922005 Z79.899 Lumbar radiculopathy 128 481591 M54.16 Persistent cough 6545749 02 R05.3 Daytime somnolence 98192 56262 00 R40.0 Type 2 obdulio betes mellitus 65744131 E11.9 Iron defic iency anemia 73934753 D50.8 [id number] Janeth Pavon PA-C [facility] [address] [place] [address] 12/29/2022 15:17:34 12/30/2022 09:55:18 Lumbar radiculopathy 375486379 M54.16 Overweight 950457924 E66 .3 [id number] Janeth Pavon PA-C [facility] [address] [place] [address] 02/24/2023 18:01:59 03/02/2023 15:11:10 Persistent cough 322158762 R05.3 Essential hypertension 73154163 I10 Overweight 377977988 E66 .3 [id number] Janeth Pavon PA-C [facility] [address] [place] [address] 05/14/2023 11:38:36 05/15/2023 11:58:34 Type 2 diabetes mellitus 38146303 E11.9 Mixed anxi ety and depressive disorder 423317299 F41.8 Overweight 289371031 E66 .[id number] [facility] [address] [place] [address] 06/04/2023 10:52:25 06/09/2023 14:14:44 Abdominal pain 26743190 R10.13 Cirrhosis of liver 93363 007 K74.69 Overweight 931620790 E66 .3 [id number] Janeth Pavon PA-C [facility] [address] [place] [address] 07/02/2023 12:08:49 07/03/2023 11:31:17 Type 2 diabetes mellitus 34986357 E11.9 Atypical chest pain 1025 16659 R07.89 Overweight 705919521 E66 .3 [id number] TOM Kunz [address] [place] [address] 08/05/2023 15:58:27 08/21/2023 14:53:44 Uncontrolled type 2 diabetes mellitus 837265653 E11.65 Overweight 141512015 E66 .3 [id number] Janeth Pavon PA-C [facility] [address] [place] [address] 08/13/2023 14:55:22 08/20/2023 15:19:06 Lumbar radiculopathy 105394623 M54.16 [id number] JOSE [facility] [address] [place] [address] 09/17/2023 08:59:31 09/18/2023 13:42:26 Atopic dermatitis 95808372 L20.9 Type 2 obdulio betes mellitus 43847447 E11.21 [id number] Amanda Amin MA [facility] [address] [place] [address] 10/16/2023 11:23:31 10/17/2023 06:49:47 Long-term drug therapy 071512239 Z79.899 Diabetes mellitus 775880 09 E11.69 Overweight 613424464 E66 .3 [id number] Janeth Pavon PA-C [facility] [address] [place] [address] 01/14/2024 09:33:39 01/19/2024 12:05:45 Long-term drug therapy 899968523 Z79.899 Type 2 obdulio betes mellitus 43975494 E11.9 Uncontroll ed type 2 diabetes mellitus 178015918 E11.65 Overweight 952049719 E66 .3 [id number] Janeth Pavon PA-C [facility] [address] [place] [address] 01/26/2024 10:49:29 02/03/2024 14:35:51 Cirrhosis of liver 06548709 K74.69 Type 2 obdulio betes mellitus 46515601 E11.9 Adult heal th examination 483456680 Z00.00 Overweight 966483926 E66 .3 [id number] TOM Kunz [address] [place] [address] 03/03/2024 10:44:06 03/04/2024 13:36:40 Chronic low back pain 646267667 M54.59 Morbid obesity 558208730 E66.01 [id number] Janeth Pavon PA-C [facility] [address] [place] [address] 03/08/2024 14:46:39 03/09/2024 16:00:13 Seizure 95006519 G40.89 Uncontroll ed type 2 diabetes mellitus 613756997 E11.65 Dissociati ve convulsions 719603834 F44.5 Overweight 518815175 E66 .3 [id number] Janeth Pavon PA-C [facility] [address] [place] [address] 03/23/2024 10:36:19 03/28/2024 10:16:17 Lumbar radiculopathy 710887836 M54.16 Uncontroll ed type 2 diabetes mellitus 759219928 E11.65 Overweight 044179296 E66 .3 [id number] Janeth Pavon PA-C [facility] [address] [place] [address] 04/06/2024 09:53:53 04/06/2024 16:23:24 Dysuria 18586674 R30.0 Uncontroll ed type 2 diabetes mellitus 995168889 E11.65 Generalize d anxiety disorder 39769826 F41.1 Overweight 267148984 E66 .3 Health Concerns Section Related Observation LastModified by Organization Detai ls LastModified Time None Recorded Concern Status LastModified by Organization Details LastModified Time None Recorded Advance Directives Directive None Recorded Payers Encounter Date Sequence Insurance Name Policy Number Policy Cordero Covered Member ID Cordero Member ID Guarantor Name 01/26/2024 1 [employer] [place] 2020 (MEDICAID REPLACEMENT - HMO) Camilo Curry [id number] Camilo Curry 03/03/2024 1 [employer] [place] - [place]MO) Camilo Curry [id number] Camilo Curry 03/08/2024 1 [employer] [place] - [place]MO) Camilo Curry [id number] Camilo Curry 03/23/2024 1 [employer] [place] - [place]MO) Camilo Curry [id number] Camilo Curry 04/06/2024 1 [employer] [place] - [place]) Camilo Curry [id number] Camilo Curry Notes Date Note Type Note Provider Name and Address Organization Details Recorded Time 01/26/2024 text/html has been to ER twice over his liver...has to have a 1.5 MRI for his liver and a clot in his shunt...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, [place], [address], [facility] 03/03/2024 11:28:09 03/08/2024 text/html first time seizu re thursday night..says approx an hour?...was found in yard..refused EMS..cant get into psych until end of april...no xanax for over a month...reports BS was off meter high..reports no post ictal Janeth Pavon PA-C Attn: Accounting, [address] [facility], [place], [address], [place] 03/08/2024 15:28:41 03/23/2024 text/html injured his lowe r back moving furniture...needs MRI...xray and CT spine were negative...phys therapy was ineffective...was just in ER Janeth Pavon PA-C Attn: Accounting, [address] [facility], [place], [address], [facility] 03/23/2024 11:18:37 04/06/2024 text/html has burning urination for a week... every hour frequency...says he has been drinking nikhil justice vs nausea...also needs something for sedation for MRI Janeth Pavon PA-C Attn: Accounting,[address] [facility], [place], [address], [facility] 04/06/2024 10:29:01
--- OUTSIDE RECORDS SUMMARY | 2024-04-19 23:07 | XMS_ITS | Encounter Summary ---
Author Organization [facility] Address [address] [facility] [address] [place] [address] Care Team Providers Care Circulation Supervisor Name Role Phone Simon Lundberg MD Primary Care Provider [phone] Nacho Rodriguez MD Unavailable + [phone] Elian Gross MD Unavailable Encounter Details Date Type Department Care Team (Late st Contact Info) Description 05/22/2021 Orders Only [facility] Primary Care at [address] [address] Simon Lundberg MD [address] [place] [address] [address] [place] [address] Social History Tobacco Use Types Packs/Day Years Used Date Smoking Tobacco: Former Smokeless Tobacco: Never Alcohol Use Standard Drinks/Week Comments No 0 (1 standard drink = 0.6 oz pur e alcohol) AUDIT-C Answer Date Recorded Q1: How often do you have a drink containing alc ohol? Never 12/17/2020 Average Number of Drinks Not on file 021 Q3: How often do you have si x or more drinks on one occasion? 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 Gender Identity Male 10/29/2020 12:37 PM CDT Sexual Orientation Straight 10/29/2020 12 :37 PM CDT documented as of this encounter Ordered Prescriptions Prescription Sig Dispense Quantity Refills Last Filled Start Date End Date ferrous sulfate 325 mg (65 mg of elemental iron) tabletIndications: Iron Deficiency Anemia Take 1 tablet (325 mg total) by mouth daily with breakfast 30 tablet 11 05/22/2021 3 ergocalciferol (VITAMIN D) 50,000 unit capsule Take 1 capsule (50,000 Units total) by mouth once a week 8 capsule 05/22/2021 2 documented in this encounter Plan of Treatment Not on file documented as of this encounter Visit Diagnoses Not on filedocumented in this encounter Care Teams Circulation Supervisor Relationship Specialty Start Date End Date Simon Lundberg MD [address] [place] [address] PCP - General Family Medicine 05/20/21 08/22/21 [place] [address] [address] [address] Consulting Physician Endocrinology 05/20/21 [place] [address] [address] [address] Consulting Physician Internal Medicine 05/20/21 documented as of this encounter
--- OUTSIDE RECORDS SUMMARY | 2024-04-19 23:07 | XMS_ITS | Encounter Summary ---
Author Organization [facility] Address [address] [facility] [address] [place] [address] Care Team Providers Care Commanding Officer Traffic Division Name Role Phone Simon Lundberg MD Primary Care Provider [phone] Nacho Rodriguez MD Unavailable + [phone] Elian Gross MD Unavailable Reason for Visit * Reason Onset Date Comments Test Results 05/22/2021 labs Encounter Details Date Type Department Care Team (Late st Contact Info) Description 05/22/2021 Telephone [facility] Primary Care at [address] [address] Ana Rosa Guerrero MA Test Results (labs) Social History Tobacco Use Types Packs/Day Years [...] on file 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 WALL INSTALLER * Telephone Encounter - Norm Weiss - 05/22/2021 4:35 PM CST Patient called in and I relayed message below word for word. WALL INSTALLER * Telephone Encounter - Ana Rosa Guerrero MA - 05/22/2021 4:13 PM CST lmovm for pt to return call for lab results WALL INSTALLER * Telephone Encounter - Ana Rosa Guerrero MA - 05/22/2021 4:13 PM CST ----- Message from Simon Lundberg MD sent at 05/22/2021 3:57 PM DRY WALL INSTALLER ----- Please relay: cholesterol is controlled vitamin D is low, needs vitamin D supplement. I will send one. The a1c is 9.8%, will share with Dr. Lnido. Kidney function is fine. He is anemic, and it is likely iron deficiency. I would have him start iron supplement as well. WALL INSTALLER documented in this encounter Plan of Treatment Not on file documented as of this encounter Visit Diagnoses Not on filedocumented in this encounter Care Teams Commanding Officer Traffic Division Relationship Specialty Start Date End Date Simon Lundberg MD [address] [place] [address] PCP - General Family Medicine 05/20/21 08/22/21 [place] [address] [address] [facility] [address] [place] [address] Consulting Physician Endocrinology 05/20/21 [place] [address] [address] [facility] [address] [place] [address] Consulting Physician Internal Medicine 05/20/21 documented as of this encounter
--- OUTSIDE RECORDS SUMMARY | 2024-04-19 23:07 | XMS_ITS | Referral Summary ---
Author Organization [facility] Address [address] [place] [address] Care Team Providers Care Registered Nurse Float Pool Name Role Phone Nacho Rodriguez MD Unavailable [phone] Elian Gross MD Unavailable Braydon Pavon Primary Care Provider [phone] Encounters Date Type Department Care Team Description 01/20/2024 Telephone Gastroententerology Charlie North MD 01/19/2024 11:31 PM CDT - 01/20/2024 2:39 PM CDT Emergency [facility] Emergency Department [id number] [address] Giuseppe Pace MD Watson, Brendan Matthew, MD PhD RUQ abdominal pain (Primary Dx); 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); Abnormal finding on liver function; S/P TIPS (transjugular intrahepatic portosystemic shunt) Discharge Disposition: Left Against Medical Advice from Last 3 Months Allergies Active Allergy Reactions Criticality Noted Date Comments Aztreonam Shortness of breath High 02/02/2018 Ciprofloxacin Shortness of breath,Urticaria High Duloxetine Hives,Nausea only Medium 02/02/2018 Dye Swelling Medium 09/10/2015 Erythromycin Hives Medium 09/10/[address] Musa quispe giving protonix Iodine Swelling Medium 10/25/2018 Iodinated Contrast Media Swelling,Edema Medium 018 Nisoldipine Unknown 01/03/2015 Octreotide Shortness of breath High 02/02/2018 Penicillins Anaphylaxis,Hives,S hortness of breath High 09/10/2015 Prochlorperazine Hives Medium Poss. hives w/IV dose Metoclopramide Agitation Medium 08/23/2021 Dysphoric reaction Sulfa (Sulfonamide Antibiotics) Hives Medium 09/10/2015 Medications ONETOUCH ULTRA BLUE TEST STRIP strip 01/06/20 18 Active HUMULIN R U-500, CONC, KWIKPEN 500 unit/mL (3 mL) CONCENTRATED injection 01/03/20 18 Active lactulose solution 10 gram/15mL TAKE 30MLS BY MOUTH FOUR TIMES A DAY NEEDED 09/10/19 16 Active hydroCHLOROthiaz james (HYDRODIURIL) 25 mg tablet Take 1 tablet (25 mg total) by mouth daily Active BD Ultra-Fine Short Pen Needle 31 gauge x 5/16 needle Inject 1 each under the skin daily To be used with the victoza 100 each 3 11/08/19 21 Active ALPRAZolam (XANAX) 1 mg tablet Take 1 tablet (1 mg total) by mouth 3 (three) times a day as needed for anxiety 03/29/20 21 Active Dexcom G6 Sensor device 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 Change sensor every 10 days. 3 each 3 05/21/19 22 Active Dexcom G6 Transmitter device 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 Change transmitter every 90 days. 1 each 05/21/19 22 Active Dexcom G6 Forest Products Gatherer misc 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 Use to check blood sugar. 1 each 05/21/19 22 Active carvediloL (COREG) 3.125 mg tablet Take 1 tablet (3.125 mg total) by mouth 2 (two) times a day with meals 02/18/20 23 Active hydrOXYzine (ATARAX) 25 mg tablet Take 1 tablet (25 mg total) by mouth 4 (four) times a day 12/01/19 24 Active pregabalin (LYRICA) 200 mg capsule Take 1 capsule (200 mg total) by mouth 2 (two) times a day Active albuterol HFA (PROVENTIL HFA,VENTOLIN HFA,PROAIR HFA) 90 mcg/actuation inhaler Inhale 2 puffs every 6 (six) hours as needed for wheezing or shortness of breath Active Trulicity 0.75 mg/0.5 mL pen injector Inject 0.5 mL (0.75 mg total) under the skin once a week 07/03/19 24 Active famotidine (PEPCID) 20 mg tablet Take 1 tablet (20 mg total) by mouth 2 (two) times a day 05/20/19 24 Active HYDROcodone-acet aminophen (NORCO) 10-325 mg per tablet Take 1 tablet by mouth every 6 (six) hours as needed Active LANTUS 100 unit/mL (3 mL) pen for injection INJECT 35 UNITS SUBCUTANEOUSLY IN THE MORNING AND 50 UNITS IN THE EVENING 02/03/20 Active HumaLOG 100 unit/mL pen for injection 3 times daily (before meals). 02/03/20 Active traZODone (DESYREL) 100 mg tablet Take 1 tablet (100 mg total) by mouth 2 (two) times a day 02/03/20 Active Active Problems Problem Noted Date Diagnosed Date RUQ abdominal pain 01/20/2024 Encounter for medical examination to establish c are 05/20/2021 Assessment & Plan (05/22/2021 3:58 PM WELL SHOOTER): A initial well visit to establish care has been performed today. Camilo Curry is not up to date on screening tests. He is in need of Diabetic eye exam, Diabetic kidney disease screening and Cholesterol screening- these have been ordered. He is not up to date on needed preventative vaccinations; He is in need of Tdap/Td and Zoster. These have been ordered/arranged unless otherwise indicated. Need follow-up arranged with assembler small products, design checker Planning on referral to painter bottom Will need to check in to the tips follow-up Labs as ordered today, I will direct the A1 c to his design checker's office. Continuing the current regimen for now. Blood pressure is controlled at this time. We may need to try to get the stress test done as well. Screen for colon cancer 03/01/2021 Overview (03/01/2021): Added automatically from request for surgery [id number] Diabetic neuropathy associat ed with type 2 diabetes mellitus ([facility]) 10/29/2020 Assessment & Plan (10/29/2020 4:23 PM CDT): Chronic, worsening Start, gabapentin therapy Work on better diabetic control Vitamin D deficiency 10/29/2020 Assessment & Plan (10/29/2020 4:23 PM CDT): Check labs and based on that for the plans Bacterial endocarditis 05/14/2020 Assessment & Plan (05/14/2020 11:09 AM WELL SHOOTER): Unfortunately the patient's records from [place] are not available for my review. We will request his discharge summary, echo report and echo images. In the interim I will obtain echocardiography and Lexiscan stress testing to further investigate the patient's dyspnea and chest discomfort. At this point I doubt the patient had endocarditis. Presently the patient has no suggestion of subacute or chronic bacterial endocarditis. We will see him in follow-up for review but if the patient has no significant valvular disease or evidence for ischemia by stress testing, I doubt any additional cardiovascular workup/follow-up will be necessary. Other chest pain 05/14/2020 Morbid obesity with body mas s index (BMI) of 40.0 to 44.9 in adult 05/14/2020 Assessment & Plan (10/29/2020 4:23 PM CDT): Counseled on diet and exercise Dyspnea on exertion 05/14/2020 Assessment & Plan (05/14/2020 11:11 AM WELL SHOOTER): The patient's dyspnea on exertion is likely multifactorial but I will further investigate potential cardiac etiology with assessment of filling pressures on echocardiography. Due to the patient's diabetes, morbid obesity, advancing age he is at high risk for development of heart failure. Lumbar degenerative disc disease 05/23/2019 Biliary colic 07/21/2018 Essential hypertension 07/21/2018 Gallstones 07/21/2018 BLAND (nonalcoholic steatohepatitis) 07/21/2018 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-sided sc iatica 07/19/2018 Sacroiliac joint dysfunction of both sides 07/19 S/P TIPS (transjugular intrahepatic portosystemi c shunt) 06/08/2018 Abnormal finding on liver function 05/24/2018 Nausea vomiting and diarrhea 02/02/2018 Assessment & Plan (02/02/2018 6:52 PM CDT): Since last night. Now clinically improving. Afebrile [...] -supportive tx - fluids, zofran, replete lytes High risk medication use 02/02/2018 Assessment & Plan (02/02/2018 6:30 PM CDT): Check blood glucoses QID Diabetes mellitus, type 2 02/02/2018 Assessment & Plan (10/29/2020 4:24 PM CDT): Chronic, uncontrolled, worsening HbA1c - 9.8 % continue current insulin doses - start ozempic 0.25 mg SQ weekly for 2 weeks than increase to 0.5 mg SQ weekly, once done with samples increase to 1 mg SQ weekly - start checking blood sugars Using Freestyle nikki 2 sensors - work on portion control diet, exercise every day - Get eye exam soon - do labs - fasting - follow up in 6 weeks with SPICE ROOM WORKER [place] Driscoll ( to discuss about insulin pumps ) And in [address] Lindo Assessment & Plan (02/02/2018 6:53 PM CDT): Pt on U-500 150U w meals at home. -Endocrine c/s: rec lantus 70 qhs, humalog 30U TID, HDSSI Assessment & Plan (02/02/2018 6:32 PM CDT): Inpatient target 100-180mg/dl 47yo w/ cirrhosis and DM2 on insulin therapy (U-500) presents with nausea/diarrhea. Given that a significant amount of insulin requirements with U-500 are driven by diet, will dose the patient at a little less than 50% his home total daily dose. Recommend lantus 70 units tonight humalog 30 units with meals High dose sliding scale humalog with meals Discharge: Can likely resume home regimen and follow-up with home design checker MATHEUS pain 10/11/2017 Morbid obesity 12/09/2016 TRACY (obstructive sleep apnea) 09/14/2016 Thrombocytopenia 09/14/2016 Esophageal varices 09/09/2016 Hepatic encephalopathy 09/09/2016 History of upper gastrointestinal hemorrhage 01/2016 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) 08/03 Assessment & Plan (02/02/2018 6:55 PM CDT): c/b esophageal varices and HE. s/p TIPS in 2015. -RUQ today showing TIPS with slower velocity compared to 08/2017 but still patent, rec close FU. -rifaximin -holding lactulose for diarrhea -should have BB outpt Assessment & Plan (02/02/2018 6:29 PM CDT): Management per primary team Immunizations Name Administration Dates Next Due Hep A / Hep B 09/10/2015 Hep B Vaccine 11/09/2015 Social History Tobacco Use Types Packs/Day Years Used Date Smoking Tobacco: Former Cigarettes Q uit: 2002 Smokeless Tobacco: Never Alcohol Use Standard Drinks/Week Comments No 0 (1 standard drink = 0.6 oz pur e alcohol) AUDIT-C Answer Date Recorded Q1: How often do you have a drink containing alc ohol? Never 08/23/2021 Average Number of Drinks Not on file 022 Q3: How often do you have si x or more drinks on one occasion? Never 08/23/2021 PHQ-2 Answer Date Recorded PHQ-2 Total Score (If total score is 3 or more points, staff should administer the PHQ-9) 2 05/20/2021 Personal Safety Answer Date Recorded Have you ever been in or are you currently in a harmful physical or emotional relationship or is someone making you feel afraid or unsafe? Denies 01/19/2024 Sex and Gender Information Value Date Recorded Sex Assigned at Not on file Legal Sex Male 2:52 PM WELL SHOOTER Gender Identity Male 10/29/2020 12:37 PM CDT Sexual Orientation Straight 10/29/2020 12 :37 PM CDT Last Filed Vital Signs Vital Sign Reading Time Taken Comments Blood Pressure 152/88 01/20/2024 12:30 PM CDT Pulse 90 01/20/2024 12:35 PM CDT Temperature 36.4 ??C (97.5 ??F) 01/19/2024 10:26 PM C DT Respiratory Rate 17 01/20/2024 12:00 PM CDT Oxygen Saturation 96% 01/20/2024 12:35 PM CDT Inhaled Oxygen Concentration - - Weight 95.3 kg (210 lb) 01/19/2024 10:26 PM CDT Height 172.7 cm (5' 8 ) 11/23/2023 7:53 AM CDT Body Mass Index 31.93 11/23/2023 7:53 AM CDT Plan of Treatment Not on file Medical Devices Implanted Type Area Concrete Batching Plant Operator Device Identifier Shelf Expiration Date Model / Serial / Lot [employer] [id number] Lifestar 14mm 60mm 80cm Stent Biliary - [id number] Implanted:Qty: 1 on 01/10/2021 at [facility] [employer] 09/15/2023 [id number] / / [id number] Procedures Procedure Name Priority Date/Time Associated Diagnosis Comments URINALYSIS AND REFLEX TO MICROSCOPIC AND CULTURE STAT 01/20/2024 12:55 PM CDT POCT GLUCOSE DEVICE Routine 01/20/2024 1 0:23 AM CDT POCT GLUCOSE DEVICE Routine 01/20/2024 3 :00 AM CDT US LIVER DOPPLER COMPLETE ED 01/20/2024 2:58 AM CDT ECG 12-LEAD Routine 01/20/2024 12:38 AM CDT TROPONIN T HIGH-SENSITIVITY STAT 01/20/2024 12:19 AM CDT AMMONIA STAT 01/20/2024 12:[address] ABDOMEN PELVIS WO CONTRAST ED 01/20/2024 12:07 AM CDT EGFR STAT 01/19/2024 10:31 PM CDT DIFFERENTIAL AUTO STAT 01/19/2024 10: 31 PM CDT LIPASE STAT 01/19/2024 10:31 PM CDT COMPREHENSIVE METABOLIC PANEL STAT 01/19/2024 10:31 PM CDT CBC WITH AUTO DIFFERENTIAL STAT 01/19/2024 10:31 PM CDT HEMOGLOBIN A1C STAT 11/23/2023 8:40 AM CDT LIPID PANEL Routine 05/20/2021 9:36 AM WELL SHOOTER Morbid obesity with body mass index (BMI) of 40.0 to 44.9 in adult (HCC) ALBUMIN CREATININE RATIO, URINE Routine 05/20/2021 9:36 AM WELL SHOOTER Diabetic neuropathy associated with type 2 diabetes mellitus (CMS/HCC) (HCC) COLONOSCOPY 12/17/2020 10:24 AM CDT SERUM HEPATITIS PANEL Routine 08/23/2015 5:23 PM CDT from Last 3 Months or Most Recently Relevant to Health Maintenance Results * (ABNORMAL) Urinalysis reflex to microscopic and culture Urine (01/20/2024 12:55 PM CDT) Color, ur Straw Yellow Clarity, ur Clear Clear [facility] Specific gravity, ur 1.022 1.003 - 1.030 [facility] pH, urine 6.5 [facility] Comment: Interpretive Data ? Urine pH is affected by diet, medications, systemic acid-base disturbances, and renal tubular function. ??pH may affect urinary stone formation. ??For example, urine pH below 6.0 may help reduce the tendency for calcium phosphate stones and pH greater than 6.0 may reduce the tendency for uric acid stone formation. Source: [facility] Current Interpretive Data was last revised on 2017 Protein, ur ql Negative Negative [facility] Glucose, ur ql 4+(A) Negative [facility] Ketones, ur Negative Negative [facility] Bilirubin, ur Negative Negative [facility] Blood, ur Negative Negative [facility] Urobilinogen, ur 2.0(A) <2.0 mg/dL [facility] Nitrite, ur Negative Negative [facility] Leukocyte esterase, ur Negative Negative [facility] UA reflex comment Reflex conditions for microscopic UA and culture not met. [facility] Urine 01/20/2024 12:5 5 PM CDT 01/20/2024 1:00 PM CDT Giuseppe Pace MD LAB MICROBIOLOGY - GE NERAL ORDERABLES Final Result Performing Organization Address [facility] de Phone Number [facility] [id number] [employer] [place] [address] * (ABNORMAL) POCT glucose (01/20/2024 10:23 AM CDT) [facility] Glucose, POC 247(H) 70 - 199 mg/dL Comment: Interpretive Data Glucose is assumed to be non-fasting. Fasting Glucose reference ranges are: 0 - 150 years: ??70 mg/dL - 99 mg/dL Current interpretive data was last revised on 2014. POC Performer [id number] [facility] POC Device Number [id number] [facility] Blood 01/20/2024 10:2 3 AM CDT 01/20/2024 10:23 AM CDT Ramírez Rae MD PhD LAB POCT ORDERABLE S - DEVICE Final Result Performing Organization Address [facility] Co de Phone Number [facility] [address] [employer] [facility] [place] [address] * (ABNORMAL) POCT glucose (01/20/2024 3:00 AM CDT) Glucose, POC 341(H) 70 - 199 mg/dL Comment: Interpretive Data Glucose is assumed to be non-fasting. Fasting Glucose reference ranges are: 0 - 150 years: ??70 mg/dL - 99 mg/dL Current interpretive data was last revised on 2014. POC Performer [id number] [facility] POC Device Number [id number] [facility] Blood 01/20/2024 3:00 AM CDT 01/20/2024 3:00 AM CDT us Giuseppe Pace MD LAB POCT ORDERABLES - DEVICE Final Result [facility] [address] [facility]. [place] [address] * US Liver Doppler Complete (01/20/2024 2:58 AM CDT) Anatomical Region Laterality Modality Vascular N/A Ultrasound 01/20/2024 8:33 AM CDT Impressions 01/20/2024 8:33 AM CDT 1. ??Patent TIPS. ??Somewhat limited assessment of TIPS velocity. 2. ??Persistently decreased main portal vein velocity with maintained antegrade flow. 3. ??Sonographic evidence of cirrhosis with splenomegaly. Electronically signed by: Darrell Jewell M.D. Narrative 01/20/2024 8:33 AM CDT EXAMINATION: LIVER DOPPLER - TIPS HISTORY: ??HISTORY: ??Quadrant abdominal pain, history of metabolic dysfunction associated steatohepatitis status post TIPS for management of refractory hematemesis post-reversal of 01/10/2021 COMPARISON: ??Liver ultrasound 11/23/2023 FINDINGS: ?? LIMITED ABDOMEN SONOGRAM: Liver: The liver is normal in size. ??The echotexture is coarse. ??The echogenicity is normal. There is mild surface nodularity. Gallbladder: The gallbladder is normal in size. There are normal stones within the gallbladder. There is is no significant gallbladder wall thickening with wall measuring up to 3-4 mm, likely reactive or secondary to 3rd spacing. Bile Duct: There is no intrahepatic bile duct dilatation. The diameter of the common duct is 3 mm in the proximal segment and 3 mm in the mid segment. Spleen: Splenomegaly measuring 20.9 cm in long axis. ?? Inferior vena cava: The proximal IVC is normal. TIPS DOPPLER: Color Doppler and spectral analysis were used to evaluate the stent graft and hepatic vasculature. ??Somewhat limited assessment of TIPS stent vascular velocity secondary to patient body habitus and technical limitations including angular velocity measurement. Portal veins: Main portal vein velocity measures 20.3 cm/second. Flow is antegrade in both the right and left portal vein branches. ?? TIPS stent: Maximum velocity within the stent graft occurs in the mid portion and measures 137 cm/sec (previously measured 150.8 cm/sec in the proximal aspect 11/23/2023). ??Minimum velocity occurs within the distal portion of the stent and measures 112 cm/sec (previously measured 108 cm/sec).There is no evidence of stenosis. Draining hepatic vein: The draining hepatic vein is suboptimally visualized although appears patent with antegrade flow. Collaterals: There is no evidence of collaterals. Hepatic artery: The visualized main hepatic artery is patent with antegrade flow. ?? Ascites: There is no ascites. ?? Procedure Note Darrell Jewell II, MD - 01/20/2024 EXAMINATION: LIVER DOPPLER - TIPS HISTORY: HISTORY: Quadrant abdominal pain, history of metabolic dysfunction associated steatohepatitis status post TIPS for management of refractory hematemesis post-reversal of 01/10/2021 COMPARISON: Liver ultrasound 11/23/2023 FINDINGS: LIMITED ABDOMEN SONOGRAM: Liver: The liver is normal in size. The echotexture is coarse. The echogenicity is normal. There is mild surface nodularity. Gallbladder: The gallbladder is normal in size. There are normal stones within the gallbladder. There is is no significant gallbladder wall thickening with wall measuring up to 3-4 mm, likely reactive or secondary to 3rd spacing. Bile Duct: There is no intrahepatic bile duct dilatation. The diameter of the common duct is 3 mm in the proximal segment and 3 mm in the mid segment. Spleen: Splenomegaly measuring 20.9 cm in long axis. Inferior vena cava: The proximal IVC is normal. TIPS DOPPLER: Color Doppler and spectral analysis were used to evaluate the stent graft and hepatic vasculature. Somewhat limited assessment of TIPS stent vascular velocity secondary to patient body habitus and technical limitations including angular velocity measurement. Portal veins: Main portal vein velocity measures 20.3 cm/second. Flow is antegrade in both the right and left portal vein branches. TIPS stent: Maximum velocity within the stent graft occurs in the mid portion and measures 137 cm/sec (previously measured 150.8 cm/sec in the proximal aspect 11/23/2023). Minimum velocity occurs within the distal portion of the stent and measures 112 cm/sec (previously measured 108 cm/sec).There is no evidence of stenosis. Draining hepatic vein: The draining hepatic vein is suboptimally visualized although appears patent with antegrade flow. Collaterals: There is no evidence of collaterals. Hepatic artery: The visualized main hepatic artery is patent with antegrade flow. Ascites: There is no ascites. IMPRESSION: 1. Patent TIPS. Somewhat limited assessment of TIPS velocity. 2. Persistently decreased main portal vein velocity with maintained antegrade flow. 3. Sonographic evidence of cirrhosis with splenomegaly. Electronically signed by: Darrell Jewell M.D. us Giuseppe Pace MD IMG US PROCEDURES Fin al Result * ECG 12-LEAD (01/20/2024 12:38 AM CDT) Narrative CONS SCIMAGE - 01/20/2024 12:38 AM CDT Giuseppe Pace MD ? 01/20/2024 12:39 AM ECG 12 lead Date/Time: 01/20/2024 12:38 AM Performed by: Giuseppe Pace MD Authorized by: Giuseppe Pace MD ?? Quality: ??Tracing quality: ??Limited by artifact Comments: ?? Normal sinus rhythm with a rate of 84. ??[place] normal. ??There is no ST deviation. ??T-waves inverted in AVR and V1. ??There are no pathologic Q-waves. ??There is no AV block. ??There is no ectopy. No acute injury pattern Procedure Note Giuseppe Pace MD - 01/20/2024 12:38 AM CDT Procedure ECG 12 lead Date/Time: 01/20/2024 12:38 AM Performed by: Giuseppe Pace MD Authorized by: Giuseppe Pace MD Quality: Tracing quality: Limited by artifact Comments: Normal sinus rhythm with a rate of 84. [place] normal. There is no STdeviation. T- waves inverted in AVR and V1. There are no pathologicQ-waves. There is no AV block. There is no ectopy. No acute injury pattern Giuseppe Pace MD 01/20/24 0039 Giuseppe Pace MD ECG ORDERABLES Final Result Performing Organization Address [facility] Co de Phone Number CONS SCIMAGE * Troponin T high-sensitivity (01/20/2024 12:19 AM CDT) Trop T hs 15 <=22 ng/L Comment: Interpretive Data For further hscTnT resources including the diagnostic algorithm and an aid in interpretation, copy and paste this link: [email or web address].testcatalog.org/show/[email or web address] Current Interpretive Data last revised 2020. Blood 01/20/2024 12:1 9 AM CDT 01/20/2024 12:23 AM CDT Giuseppe Pace MD LAB BLOOD ORDERABLES Final Result Performing Organization Address [facility] de Phone Number [facility] [address] [employer] [place] [address] * (ABNORMAL) Ammonia (01/20/2024 12:19 AM CDT) Ammonia 104(H) <=50 mcmol/L Blood 01/20/2024 12:1 9 AM CDT 01/20/2024 12:23 AM CDT Giuseppe Pace MD LAB BLOOD ORDERABLES Final Result Performing Organization Address [facility] Co de Phone Number [facility] [address] [employer] [address] * CT Abdomen Pelvis WO Contrast (01/20/2024 12:07 AM CDT) Anatomical Region Laterality Modality Body N/A Computed Tomogra phy 01/20/2024 8:33 AM CDT Impressions 01/20/2024 8:34 AM CDT 1. ??Cirrhotic liver morphology with stigmata of portal hypertension including splenomegaly and esophageal and gastric varices. 2. ??Transjugular intrahepatic portosystemic shunt in place. Evaluation for stent patency is limited by lack of intravenous contrast. ??Consider evaluation with liver Doppler. Preliminary report dictated by electronic security technician teleradiologist, Dr. Pancho Covarrubias. Dictated by: Neeraj Escalante M.D. The radiology attending physician has personally reviewed this study, and had reviewed and/or edited this written report and agrees with it. Electronically signed by: Gerry Bryson M.D. Narrative 01/20/2024 8:34 AM CDT EXAMINATION: ??Computed tomography of the abdomen and pelvis without intravenous contrast HISTORY: Right upper quadrant abdominal pain, history of transjugular intrahepatic portosystemic shunt TECHNIQUE: ??Transaxial computed tomographic images of the abdomen and pelvis were obtained without intravenous contrast according to the standard protocol. COMPARISON: CT 10/27/2018 FINDINGS: ?? Minimal atelectasis in the left lung base. ??Heart size is mildly enlarged. ??Trace pericardial fluid. Mild liver surface nodularity and periportal space widening in keeping with cirrhosis. ??Transjugular intrahepatic portal systemic shunt stent in place. ??Evaluation for stent patency is limited given the lack of intravenous contrast. ??Subcentimeter hypoattenuating hepatic lesions are unchanged but are too small to characterize. Multiple calcified splenic granulomas. ??Spleen is mildly enlarged measuring up to 1.4 cm in craniocaudal dimensions. ??There are multiple esophageal and gastric varices. ??Gallbladder surgically absent. ??Pancreas appears normal. ??Nodular thickening of the right adrenal gland is unchanged, likely secondary to adenomatous hyperplasia. ??Left adrenal gland is normal. Right-sided pelvic kidney. ??Left kidney appears normal. ??No hydronephrosis. ??Unchanged right renal cyst. ??Urinary bladder appears normal. ??Prostate is present. The colon and small bowel are normal in course and caliber. ??Appendix appears normal. ??No evidence of bowel obstruction. ??No free intraperitoneal gas or fluid. ??Small amount of soft tissue stranding underlying a right lower quadrant glucometer. Abdominal aorta is normal in course and caliber. ??No pathologically enlarged abdominal or pelvic lymph nodes. ??There are scattered mesenteric and retroperitoneal prominent lymph nodes are unchanged and likely reactive. No suspicious osseous lesions. Procedure Note Gerry Bryson MD - 01/20/2024 EXAMINATION: Computed tomography of the abdomen and pelvis without intravenous contrast HISTORY: Right upper quadrant abdominal pain, history of transjugular intrahepatic portosystemic shunt TECHNIQUE: Transaxial computed tomographic images of the abdomen and pelvis were obtained without intravenous contrast according to the standard protocol. COMPARISON: CT 10/27/2018 FINDINGS: Minimal atelectasis in the left lung base. Heart size is mildly enlarged. Trace pericardial fluid. Mild liver surface nodularity and periportal space widening in keeping with cirrhosis. Transjugular intrahepatic portal systemic shunt stent in place. Evaluation for stent patency is limited given the lack of intravenous contrast. Subcentimeter hypoattenuating hepatic lesions are unchanged but are too small to characterize. Multiple calcified splenic granulomas. Spleen is mildly enlarged measuring up to 1.4 cm in craniocaudal dimensions. There are multiple esophageal and gastric varices. Gallbladder surgically absent. Pancreas appears normal. Nodular thickening of the right adrenal gland is unchanged, likely secondary to adenomatous hyperplasia. Left adrenal gland is normal. Right-sided pelvic kidney. Left kidney appears normal. No hydronephrosis. Unchanged right renal cyst. Urinary bladder appears normal. Prostate is present. The colon and small bowel are normal in course and caliber. Appendix appears normal. No evidence of bowel obstruction. No free intraperitoneal gas or fluid. Small amount of soft tissue stranding underlying a right lower quadrant glucometer. Abdominal aorta is normal in course and caliber. No pathologically enlarged abdominal or pelvic lymph nodes. There are scattered mesenteric and retroperitoneal prominent lymph nodes are unchanged and likely reactive. No suspicious osseous lesions. IMPRESSION: 1. Cirrhotic liver morphology with stigmata of portal hypertension including splenomegaly and esophageal and gastric varices. 2. Transjugular intrahepatic portosystemic shunt in place. Evaluation for stent patency is limited by lack of intravenous contrast. Consider evaluation with liver Doppler. Preliminary report dictated by electronic security technician teleradiologist, Dr. Pancho Covarrubias. Dictated by: Neeraj Escalante M.D. The radiology attending physician has personally reviewed this study, and had reviewed and/or edited this written report and agrees with it. Electronically signed by: Gerry Bryson M.D. Giuseppe Pace MD IMG CT PROCEDURES Fin al Result * eGFR (01/19/2024 10:31 PM CDT) eGFR >90 >=60 mL/min/1. 73 m2 Comment: Interpretive Data Reference Interval Normal ?>/= 90 mL/min/1.73m2 Mildly decreased* ? 60 - 89 mL/min/1.73m2 Mildly to moderately decreased ?45 - 59 mL/min/1.73m2 Moderately to severely decreased ??30 - 44 mL/min/1.73m2 Severely decreased ?15 - 29 mL/min/1.73m2 Kidney Failure ?< 15 ??mL/min/1.73m2 *Relative to young adult level Estimated glomerular filtration rate is determined by the 2020 CKD-EPI equation recommended by the National Kidney Foundation (A Unifying Approach to GFR Estimation: Recommendations of the NKF-ASK Task Force on Reassessing the Inclusion of Race in Diagnosing Kidney Disease, JASN 2020). The CKD-EPI equation should not be used for patients with unstable renal function and has not been validated in children and those over 70. Current interpretive data was last reviewed 2021. Blood 01/19/2024 10:3 1 PM CDT 01/19/2024 10:33 PM CDT Giuseppe Pace MD LAB BLOOD ORDERABLES Final Result [facility] [id number] [facility]. Department [place] [address] * (ABNORMAL) Differential, auto (01/19/2024 10:31 PM CDT) Neutrophil abs 2.6 1.5 - 6.5 K/cumm Imm gran abs 0.0 0.0 - 0.1 K/cumm [facility] Lymphocyte abs 0.7(L) 0.8 - 3.3 K/cumm [facility] Monocyte abs 0.4 0.2 - 0.8 K/cumm [facility] Eosinophil abs 0.1 0.0 - 0.5 K/cumm [facility] Basophil abs 0.1 0.0 - 0.1 K/cumm [facility] Neutrophil pct 65.8 % [facility] Comment: Interpretive Data Percent cell count reference ranges are not reported, since discordance with absolute values may lead to misinterpretation of CBC data. Current Interpretive Data was last revised on 2017. Imm gran pct 0.5 % [facility] Comment: Interpretive Data Percent cell count reference ranges are not reported, since discordance with absolute values may lead to misinterpretation of CBC data. Current Interpretive Data was last revised on 2017. Lymphocyte pct 18.5 % [facility] Comment: Interpretive Data Percent cell count reference ranges are not reported, since discordance with absolute values may lead to misinterpretation of CBC data. Current Interpretive Data was last revised on 2017. Monocyte pct 10.6 % [facility] Comment: Interpretive Data Percent cell count reference ranges are not reported, since discordance with absolute values may lead to misinterpretation of CBC data. Current Interpretive Data was last revised on 2017. Eosinophil pct 3.3 % [facility] Comment: Interpretive Data Percent cell count reference ranges are not reported, since discordance with absolute values may lead to misinterpretation of CBC data. Current Interpretive Data was last revised on 2017. Basophil pct 1.3 % [facility] Comment: Interpretive Data Percent cell count reference ranges are not reported, since discordance with absolute values may lead to misinterpretation of CBC data. Current Interpretive Data was last revised on 2017. Blood 01/19/2024 10:3 1 PM CDT 01/19/2024 10:33 PM CDT Giuseppe Pace MD LAB BLOOD ORDERABLES Final Result Performing Organization Address [facility]/ZIP Co de Phone Number [facility] [address] [employer] [place] [address] * (ABNORMAL) CBC with auto differential (01/19/2024 10:31 PM CDT) Pathologist [facility] WBC 4.0 3.8 - 9.9 K/cumm Hgb 15.4 13.0 - 17.5 g/dL [facility] Hct 44.4 38.9 - 50.3 % [facility] Plt 80(L) 150 - 400 K/cumm [facility] MPV 11.2 9.1 - 12.3 fL [facility] RBC 5.28 4.30 - 5.80 M/cumm [facility] MCV 84.1 81.3 - 96.4 fL [facility] MCH 29.2 27.1 - 33.3 pg [facility] MCHC 34.7 32.3 - 35.7 g/dL [facility] CV 18.0(H) 11.1 - 14.9 % [facility] SD 52.4(H) 35.7 - 48.1 fL [facility] NRBC abs 0.02(H) 0.00 - 0.01 K/cumm [facility] Blood (Blood, Venous) 01/19/2024 10:31 PM CDT 01/19/2024 10:33 PM CDT Giuseppe Pace MD LAB BLOOD ORDERABLES Final Result Performing Organization Address [facility]/ZIP Co de Phone Number [facility] [id number] [employer] [address] * Lipase (01/19/2024 10:31 PM CDT) Lipase 19 10 - 99 Units/L Blood (Blood, Venous) 01/19/2024 10:31 PM CDT 01/19/2024 10:33 PM CDT Giuseppe Pace MD LAB BLOOD ORDERABLES Final Result [facility] [id number] [facility] Department [place] [address] * (ABNORMAL) Comprehensive metabolic panel (01/19/2024 10:31 PM CDT) Sodium 134(L) 135 - 145 mmol/L Potassium, pl 4.6 3.3 - 4.9 mmol/L [facility] Chloride 99 97 - 110 mmol/L [facility] CO2 26 22 - 32 mmol/L [facility] Anion gap 9 2 - 15 mmol/L [facility] BUN 10 6 - 25 mg/dL [facility] Creatinine 0.70(L) 0.80 - 1.30 mg/dL [facility] Glucose 405(H) 70 - 199 mg/dL [facility] Comment: Interpretive Data Fasting glucose >/= 126 mg/dl is diagnostic for diabetes. ?? Fasting is defined as no caloric intake for at least 8 hours. Fasting glucose between 100 mg/dl to 125 mg/dl is diagnostic of prediabetes. In a patient with classic symptoms of hyperglycemia or hyperglycemic crisis, a random glucose >/= 200 mg/dl is diagnostic for diabetes. In the absence of unequivocal hyperglycemia, results should be confirmed by repeat testing. The classification and Diagnosis of Diabetes Diabetes Care 202; 46: S19-S40. Current interpretive data was last revised 2022. Calcium 9.2 8.5 - 10.3 mg/dL [facility] Bilirubin, total 2.3(H) 0.1 - 1.2 mg/dL [facility] Protein, pl 6.4(L) 6.5 - 8.5 g/dL [facility] Albumin 3.7 3.5 - 5.0 g/dL [facility] Alk phos 85 40 - 130 Units/L [facility] ALT 17 7 - 55 Units/L [facility] AST 30 10 - 50 Units/L [facility] Comment:Hemolyzed; result ma y be falsely elevated. Blood 01/19/2024 10:3 1 PM CDT 01/19/2024 10:33 PM CDT Giuseppe aPce MD LAB BLOOD ORDERABLES Final Result Performing Organization Address City/[facility]/ZIP Co de Phone Number [facility] [id number] [facility] [place] [address] * (ABNORMAL) Hemoglobin A1c (11/23/2023 8:40 AM CDT) Hgb A1C 10.0(H) 4.0 - 5.6 % Estimated Average Glucose 240 mg/dL [facility] Comment: The ADA recommends reporting an estimated Average Glucose (eAG) with all Hemoglobin A1c results using the equation derived from a study of 507 normal and diabetic adults. ??Minority populations were underrepresented and children were not included. ?? (Diabetes Care 2020; 43(S1): S66-S76). ??The eAG is not equivalent to a fasting glucose. Blood 11/23/2023 8:40 AM CDT 11/23/2023 8:56 AM CDT Stephen Buckner MD LAB BLOOD ORDERABLES Fi nal Result [facility] Department [place] [address] * Albumin Creatinine Ratio, Urine (05/20/2021 9:36 AM WELL SHOOTER) Albumin Ur <12.0 mg/L [facility] Comment: Interpretive Data No reference range established. Current interpretive data was last revised 2018. Creatinine Ur 47.6 mg/dL [facility] Comment: Interpretive Data No reference range established. Current interpretive data was last revised 2018. Albumin Creatinine Ratio, Ur <25 1 - 29 mg/g [facility] Urine 05/20/2021 9:36 AM WELL SHOOTER 05/20/2021 7:41 PM WELL SHOOTER us Simon Lundberg MD LAB URINE ORDERABLES Final Result Performing Organization Address City/State/ZIP Co sc Phone Number [facility] [id number] [address] Department [place] [address] * (ABNORMAL) Lipid panel (05/20/2021 9:36 AM WELL SHOOTER) Cholesterol 110 30 - 199 mg/dL [facility] Comment: Interpretive Data Ages < or = 19 years ??Acceptable: ? <170 mg/dL ??Borderline high: ??170-199 mg/dL ??High: ? >or= 200 mg/dL Ages > or = 20 years ??Desirable: ?<200 mg/dL ??Borderline high: ??200-239 mg/dL ??High: ? >or= 240 mg/dL Literature References: 1. Expert Panel on Integrated Guidelines for Cardiovascular Health and Risk Reduction in Children and Adolescents. Pediatrics 2011;128:S213 2. NCEP Expert Panel. Circulation 2004;110:227 Current Interpretive Data was last revised on 2017. Triglycerides 149 <=149 mg/dL [facility] Comment: Interpretive Data Ages < or = 9 years ??Acceptable: ? <75 mg/dL ??Borderline high: ??75-99 mg/dL ??High: ? >or= 100 mg/dL Ages 10 to 20 years ??Acceptable: ? <90 mg/dL ??Borderline high: ??90-129 mg/dL ??High: ? >or= 130 mg/dL Ages > or = 20 years ??Desirable: ?<150 mg/dL ??Borderline high: ??150-199 mg/dL ??High: ? 200-499 mg/dL ?Very high: ?? >or= 499 mg/dL Literature References: 1. Expert Panel on Integrated Guidelines for Cardiovascular Health and Risk Reduction in Children and Adolescents. Pediatrics 2011;128:S213 2. NCEP Expert Panel. Circulation 2004;110:227 Current Interpretive Data was last revised on 2017. HDL 33(L) >=40 mg/dL [facility] Comment: Interpretive Data Ages < or = 19 years ??Acceptable: ? >45 mg/dL ??Borderline low: ?? 40-45 mg/dL ??Low: ? <40 mg/dL Ages > or = 20 years ??Desirable: ?>or= 60 mg/dL ??Low: ? <40 mg/dL Literature References: 1. Expert Panel on Integrated Guidelines for Cardiovascular Health and Risk Reduction in Children and Adolescents. Pediatrics 2011;128:S213 2. NCEP Expert Panel. Circulation 2004;110:227 Current Interpretive Data was last revised on 2017. LDL, calculated 47 <=129 mg/dL [facility] Comment: Interpretive Data Ages < or = 19 years ??Acceptable: ? <110 mg/dL ??Borderline high: ??110-129 mg/dL ??High: ?>or= 130 mg/dL Ages > or = 20 years ??Optimal: ? <100 mg/dL ??Near optimal: ?100-129 mg/dL ??Borderline high: ?? 130-159 mg/dL ??High: ?>160 mg/dL Literature References: 1. Expert Panel on Integrated Guidelines for Cardiovascular Health and Risk Reduction in Children and Adolescents. Pediatrics 2011;128:S213 2. NCEP Expert Panel. Circulation 2004;110:227 Current Interpretive Data was last revised on 2017. Non-HDL Cholesterol 77 mg/dL [facility] Comment: Interpretive Data Ages < or = 19 years ??Acceptable: ?<120 mg/dL ??Borderline high: ??120-144 mg/dL ??High: ?>145 mg/dL Ages > or = 20 years ??When triglycerides are >200 mg/dL, Non-HDL cholesterol is a secondary target of ? therapy with treatment goals that are 30 mg/dL greater than the LDL cholesterol target. ? Literature References: 1. Expert Panel on Integrated Guidelines for Cardiovascular Health and Risk Reduction in Children and Adolescents. Pediatrics 2011;128:S213 2. NCEP Expert Panel. Circulation 2004;110:227 Current Interpretive Data was last revised on 2017. Chol/HDL ratio 3 [facility] Blood 05/20/2021 9:36 AM WELL SHOOTER 05/20/2021 7:41 PM WELL SHOOTER Simon Lundberg MD LAB BLOOD ORDERABLES Final Result Performing Organization Address City/State/[facility] Co de Phone Number [facility] [phone] [facility] Department [place] [address] * COLONOSCOPY (12/17/2020 10:24 AM CDT) Anatomical Region Laterality Modality Other Narrative Procedure Note Elian Gross MD - 12/17/2020 10:24 AM CDT ENDOSCOPY LAB Patient Name: Camilo Curry Procedure Date: 12/17/2020 10:24 AM Date of : 1970 Admit Type: Outpatient Age: 50 Gender: Male Attending MD: Elian Vivar M.D. Room: [facility] ENDOSCOPY ROOM 02 Note Status: Finalized Procedure: Colonoscopy Indications: Unexplained iron deficiency anemia Providers: Elian Draper M.D. Referring MD: Elian Draper M.D. Medicines: General Anesthesia Complications: No immediate complications. Estimated Blood Loss: Estimated blood loss: none. Procedure: Pre-Anesthesia Assessment: - Prior to the procedure, a History and Physicalwas performed, and patient medications and allergieswere reviewed. The patient is competent. The risks and benefits of the procedure and the sedation optionsand risks were discussed with the patient. Allquestions were answered and informed consent was obtained. Patient identification and proposed procedure were verified by the physician, the nurse, the anesthesiologist, the chilling hood operator and thetechnician in the pre-procedure area in the procedure room inthe endoscopy suite. Mental Status Examination: alertand oriented. Airway Examination: normal oropharyngeal airway and neck mobility. Respiratory Examination: clear to auscultation. CV Examination: normal. Prophylactic Antibiotics: The patient does notrequire prophylactic antibiotics. Prior Anticoagulants: The patient has taken no previous anticoagulant or antiplatelet agents. ASA Grade Assessment: II - A patient with mild systemic disease. After reviewing the risks and benefits, the patient was deemed in satisfactory condition to undergo the procedure.The anesthesia plan was to use general anesthesia. Immediately prior to administration of medications, the patient was re-assessed for adequacy to receive sedatives. The heart rate, respiratory rate, oxygen saturations, blood pressure, adequacy of pulmonary ventilation, and response to care were monitored throughout the procedure. The physical status ofthe patient was re-assessed after the procedure. The benefits, risks and alternatives of theprocedure and sedation were discussed and informed consentwas obtained. All questions were answered. Please referto the signed informed consent document in the medical record. The scope was passed under direct vision.The [id number] was introduced through the anusand advanced to the hepatic flexure. The colonoscopywas performed without difficulty. The patient tolerated the procedure well. The quality of the bowel preparation was unsatisfactory. The quality of the bowel preparation was evaluated using the BBPS([place] Bowel Preparation Scale) with scores of: RightColon = 0 (unprepared, mucosa not seen due to solid stoolthat cannot be cleared or unseen proximal colon segmentin a colonoscopy aborted due to inadequate bowelprep), Transverse Colon = 1 (portion of mucosa seen, but other areas not well seen due to staining, residual stool and/or opaque liquid) and Left Colon = 0 (unprepared, mucosa not seen due to solid stoolthat cannot be cleared or unseen proximal colon segmentin a colonoscopy aborted due to inadequate bowelprep). The total BBPS score equals 1. The quality of the bowel preparation was inadequate. The bowel preparation used was GoLYTELY via split dose instruction. Bowel prep was administered using asplit dose. Findings: A large amount of semi-solid solid stool was found in the sigmoidcolon, in the descending colon, in the transverse colon and at the hepatic flexure, precluding visualization. Impression: - Preparation of the colon was unsatisfactory. - Preparation of the colon was inadequate. - Stool in the sigmoid colon, in the descendingcolon, in the transverse colon and at the hepaticflexure. - No specimens collected. Recommendation: - Discharge patient to home (ambulatory). - Resume previous diet. - Continue present medications. - Repeat colonoscopy in 3 months because the examination was incomplete. - Return to referring physician as previously scheduled. - . Electronically signed by Elian Draper MD Elian Draper M.D. 12/17/2020 10:42:21 AM Number of Addenda: 0 Note Initiated On: 12/17/2020 10:24 AM Elian Draper MD ENDOSCOPY CT OCEDURES Final Result * Serum Hepatitis panel (08/23/2015 5:23 PM CDT) HBV surface ag Negative NEG HISTO RICAL RESULTS HCV ab Negative NEG HISTORICAL RESULTS Comment: Interpretive Data If confirmation is required, call Laboratory Customer Service to request sample to be sent to [facility] for Hepatitis C Virus (HCV) RNA Detection and Quantitation by Real-Time Reverse Gear Setter-PCR (RT-PCR). Current interpretive data was last revised on 2011 HBV core ab, IgM Negative NEG HIS TORICAL RESULTS Comment: Interpretive Data If test is reported as Equivocal, new sample should be drawn for testing. Current interpretive data was last revised on 2007. HAV ab, IgM Negative NEG HISTORIC AL RESULTS Comment: Interpretive Data If test is reported as Equivocal, new sample should be drawn in two weeks for testing. Current interpretive data was last revised on 2007. Serum 08/23/2015 5:23 PM CDT Historical Provider LAB BLOOD ORDERABLES Anastasiya enciso Result HISTORICAL RESULTS from Last 3 Months or Most Recently Relevant to Health Maintenance Insurance [facility] AETNA BETTER [facility] AETNA BETTER [facility] Advance Directives For more information, please contact: [phone] * Full Code (Latest Code Status on File) Date Activated Date Inactivated Comments 08/23/2021 7:07 AM 08/23/2021 12:49 PM * Full Code Date Activated Date Inactivated Comments 08/23/2021 7:07 AM 08/23/2021 7:07 AM * Full Code Date Activated Date Inactivated Comments 01/10/2021 7:59 AM 01/10/2021 3:38 PM * Full Code Date Activated Date Inactivated Comments 12/17/2020 9:18 AM 12/17/2020 4:00 PM * Full Code Date Activated Date Inactivated Comments 02/02/2018 11:57 AM 02/03/2018 5:26 AM Care Teams Registered Nurse Float Pool Relationship Specialty Start Date End Date Braydon Pavon PA [address] [place] [address] PCP - General 08/23/21 [place] [id number] [address] [facility] [address] [place] [address] Consulting Physician Endocrinology 05/20/21 [place] [id number] [address] [facility] [address] [place] [address] Consulting Physician Internal Medicine 05/20/21
--- OUTSIDE RECORDS SUMMARY | 2024-04-19 23:07 | XMS_ITS | Encounter Summary ---
Author Organization [facility] Address [address] [facility] [address] [place] [address] Care Team Providers Care Circuit Judge Name Role Phone Simon Lundberg MD Primary Care Provider [phone] Nacho Rodriguez MD Unavailable + [phone] Elian Gross MD Unavailable Reason for Visit * Reason Onset Date Comments need tramdol refill 06/04/2021 Encounter Details Date Type Department Care Team (Late st Contact Info) Description 06/04/2021 Telephone [facility] Primary Care at [address] [address] Simon Lundberg MD [address] [place] [address] [address] [place] [address] need tramdol refill Social History Tobacco Use Types Packs/Day Years [...] on file 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 Gender Identity Male 10/29/2020 12:37 PM CDT Sexual Orientation Straight 10/29/2020 12 :37 PM CDT documented as of this encounter Ordered Prescriptions Prescription Sig Dispense Quantity Refills Last Filled Start Date End Date traMADoL (ULTRAM) 50 mg tablet Take 1 tablet (50 mg total) by mouth every 8 (eight) hours as needed for pain 45 tablet 06/06/2021 01/20/2024 documented in this encounter Miscellaneous Notes * Telephone Encounter - Simon Lundberg MD - 06/12/2021 1:50 PM PLACEMENT SPECIALIST Ok, thanks EMENT SPECIALIST * Telephone Encounter - Chica Bal MA - 06/12/2021 1:20 PM PLACEMENT SPECIALIST Spoke to pt, informed pt that I have a list of pain management providers, pt voiced understanding, pt has an appt on 06/17/21 and will crop picker the list then. EMENT SPECIALIST * Telephone Encounter - Simon Lundberg MD - 06/11/2021 9:09 AM PLACEMENT SPECIALIST Is there anyway we can find out from insurance company? There are only so many pain management specialists in the area. We can table at for now. But to reiterate, I will NOT fill both Tylenol 3 and tramadol EMENT SPECIALIST * Telephone Encounter - Chica Bal MA - 06/11/2021 8:48 AM PLACEMENT SPECIALIST Pt stated the his insurance gave him 3 names, pt did not remember the 3 names, when he called to make an appt, he was told that his insurance was not excepted at any of the offices he was given. EMENT SPECIALIST * Telephone Encounter - Simon Lundberg MD - 06/10/2021 12:35 PM PLACEMENT SPECIALIST That is a bit confusing, insurance gave him names on his network but those listed did not take his insurance? Which names did they give him? Of course, it is his decision if he wants to go back to his previous doctor. I will not apologize for expressing concern with the concurrent usage of Tylenol No. 3 and tramadol. I am not going to fill chronic pain medication, that is firm. I have filled it temporarily, I still recommend we get Pain Management involved. EMENT SPECIALIST * Telephone Encounter - Chica Bal MA - 06/07/2021 5:19 PM PLACEMENT SPECIALIST Spoke to pt, pt stated he is not taking Tylenon 3. Pt does not know which pain management his insurance takes, he stated that the insurance had given him 3 names, but all 3 did not take his insurance. Pt does not know what to do, he may go back to his other dr. EMENT SPECIALIST * Telephone Encounter - Simon Lundberg MD - 06/07/2021 3:52 PM PLACEMENT SPECIALIST I won't fill both. It is not a safe practice, risk of overdose EMENT SPECIALIST * Telephone Encounter - Ellen Jones - 06/07/2021 1:29 PM CST Patient reports he was taking the Tylenol 3 but ran out. He states that he was using it as the Tramadol was not working for his pain. EMENT SPECIALIST * Telephone Encounter - Simon Lundberg MD - 06/07/2021 1:19 PM PLACEMENT SPECIALIST I'll need a list of names form his network. We can have him call [facility] to get that. Also, is he still taking tylenol 3? EMENT SPECIALIST * Telephone Encounter - Ellen Jones - 06/07/2021 8:49 AM CST Patient informed and voiced understanding. He reports he was referred to pain management but they did not accept his insurance. Please place a pain management referral and I will search for someone in network for him. EMENT SPECIALIST * Telephone Encounter - Ellen Jones - 06/07/2021 8:24 AM CST LVM to call back EMENT SPECIALIST * Addendum Note - Simon Lundberg MD - 06/06/2021 10:29 AM CSTAddended by: SIMON LUNDBERG on: 06/06/2021 10:29 AM Modules accepted: Orders EMENT SPECIALIST * Telephone Encounter - Simon Lundberg MD - 06/06/2021 10:27 AM PLACEMENT SPECIALIST Couple things: make sure he is not taking tylenol 3 anymore. Also, I will fill tramadol once. If further chronic pain med needed, I will need to refer out to pain management. EMENT SPECIALIST * Telephone Encounter - Ellen Jones - 06/04/2021 1:03 PM CST Patient is calling stating that he needs a refill on his Tramadol 50 mg take one tablet three timesa day to [facility]. Please call patient once this is done. EMENT SPECIALIST documented in this encounter Plan of Treatment Not on file documented as of this encounter Visit Diagnoses Not on filedocumented in this encounter Discontinued Medications Medication Sig Discontinue Reason Start Date End Da te traMADol (ULTRAM) 50 mg tablet TAKE 1 TABLET 3 TIMES DAILY NEEDED. Reorder 12/08/2016 06/06/2021 documented as of this encounter Care Teams Circuit Judge Relationship Specialty Start Date End Date Simon Lundberg MD [address] [place] [address] PCP - General Family Medicine 05/20/21 08/22/21 [place] [address] [address] [address] Consulting Physician Endocrinology 05/20/21 [place] [address] [address] [address] Consulting Physician Internal Medicine 05/20/21 documented as of this encounter
--- OUTSIDE RECORDS SUMMARY | 2024-04-19 23:07 | XMS_ITS | Encounter Summary ---
Author Organization [facility] Address [address] [place] [address] Care Team Providers Care Public Relations Assistant Name Role Phone Braydon Pavon Primary Care Provider [phone] Nikolay Lancaster MD Unavailable [phone] Encounter Details Date Type Department Care Team (Late st Contact Info) Description 01/08/2021 Telephone [facility] Radiology [facility] [address] [place] [address] Ana Rosa Morris RN Social History Tobacco Use Types Packs/Day Years [...] more points, staff should administer the PHQ-9) 0 10/29/2020 Sex and Gender Information Value Date Recorded Sex Assigned at Not on file 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 Gender Identity Male 10/29/2020 12:37 PM CDT Sexual Orientation Straight 10/29/2020 12 :37 PM CDT documented as of this encounter Miscellaneous Notes * Telephone Encounter - Ana Rosa Morris RN - 01/08/2021 3:23 PM CDT No answer documented in this encounter Plan of Treatment Not on file documented as of this encounter Visit Diagnoses Not on filedocumented in this encounter Care Teams Public Relations Assistant Relationship Specialty Start Date End Date Braydon Pavon PA [address] [place] [address] PCP - General Family Practice 05/09/20 05/19/21 Nikoaly Lancaster MD [address] [place] [address] 05/09/20 05/19/21 documented as of this encounter
--- OUTSIDE RECORDS SUMMARY | 2024-04-19 23:07 | XMS_ITS | Encounter Summary ---
Author Organization [facility] Address [address] [place] [address] Phone Care Team Providers Care Inventory Control Associate Name Role Phone Simon Lundberg MD Primary Care Provider [phone] Nacho Rodriguez MD Unavailable + [phone] Elian Gross MD Unavailable Encounter Details Date Type Department Care Team (Late st Contact Info) Description 06/26/[address] [facility] Gastroenterology [address] [facility] Advanced Medicine 8th [place] [address] [place] [address] Carl Rouse MD [address] [facility] [address] [place] [address] Social History Tobacco Use Types Packs/Day Years [...] on file Legal Sex Male 2:52 PM PRE SALES TECHNICAL CONSULTANT Gender Identity Male 10/29/2020 12:37 PM CDT Sexual Orientation Straight 10/29/2020 12 :37 PM CDT documented as of this encounter Miscellaneous Notes * Telephone Encounter - Zara Aguilar BS - 06/26/2021 3:56 PM CST Spoke to the patient today and he asked to be rescheduled into August as he has a lot of appointments already scheduled. He is scheduled for Dr Estrada on 08/23/2021 at [facility] at 8am. Patient already has the 2 day prep at home. ----- Message from Faith Hooker sent at 06/19/2021 10:30 AM PRE SALES TECHNICAL CONSULTANT ----- Regarding: FW: colon repeat Will you contact him to reschedule now that electives are resuming. ----- Message ----- From: Faith Hooker Sent: 06/19/2021 12:00 AM PRE SALES TECHNICAL CONSULTANT To: Faith Hooker Subject: FW: colon repeat Pt aware that we could not schedule his Elective colonsocpy in June due to covid surge. Plan to f/u in 4-6 weeks to see if rescheduling is an option. SALES TECHNICAL CONSULTANT SALES TECHNICAL CONSULTANT documented in this encounter Plan of Treatment Not on file documented as of this encounter Visit Diagnoses Not on filedocumented in this encounter Care Teams Inventory Control Associate Relationship Specialty Start Date End Date Simon Lundberg MD [address] [place] [address] PCP - General Family Medicine 05/20/21 08/22/21 [place] [address] [address] [facility] [address] [place] [address] Consulting Physician Endocrinology 05/20/21 [place] [address] [address] [address] Consulting Physician Internal Medicine 05/20/21 documented as of this encounter
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
--- OUTSIDE RECORDS SUMMARY | 2024-04-19 23:07 | XMS_ITS | Encounter Summary ---
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 Patient reported that he was exposed to COVID and that's why he was unable to make the appointment. He will call the scheduling line to set up for a day and time that works best for him. Emailed the scheduling number to [email or web address]. Will follow up in one week to verify date setup. NESS SYSTEMS TECHNICIAN documented in this encounter Plan of Treatment Not on file documented as of this encounter Visit Diagnoses Not on filedocumented in this encounter Care Teams Wool Presser Relationship Specialty Start Date End Date Braydon Pavon PA [address] [place] [address] PCP - General Family Practice 05/09/20 05/19/21 Nikolay Lancaster MD [address] [place] [address] 05/09/20 05/19/21 documented as of this encounter
--- OUTSIDE RECORDS SUMMARY | 2024-04-19 23:07 | XMS_ITS | Encounter Summary ---
Author Organization [facility] Address [address] [facility] [address] [place] [address] Care Team Providers Care Night Court Magistrate Name Role Phone Simon Lundberg MD Primary Care Provider [phone] Nacho Rodriguez MD Unavailable [phone] Elian Gross MD Unavailable Reason for Visit * Reason Onset Date Comments Forms/questionnaires 07/17/2021 ADS Encounter Details Date Type Department Care Team (Late st Contact Info) Description 07/17/2021 Telephone [facility] [address] [facility] [address] [place] [address] [place] [address] 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 Office note from 10/29/20 faxed to [facility] and confirmation will be scanned when complete documented in this encounter Plan of Treatment Not on file documented as of this encounter Visit Diagnoses Not on filedocumented in this encounter Care Teams Night Court Magistrate Relationship Specialty Start Date End Date Simon Lundberg MD [address] [place] [address] PCP - General Family Medicine 05/20/21 08/22/21 [place] [address] [address] [address] Consulting Physician Endocrinology 05/20/21 [place] [address] [address] Consulting Physician Internal Medicine 05/20/21 documented as of this encounter
--- OUTSIDE RECORDS SUMMARY | 2024-04-19 23:07 | XMS_ITS | Encounter Summary ---
Author Organization [facility] Address [address] [facility] [address] [place] [address] Care Team Providers Care Station Chief Name Role Phone Simon Lundberg MD Primary Care Provider [phone] Nacho Rodriguez MD Unavailable [phone] Elian Gross MD Unavailable Encounter Details Date Type Department Care Team (Late st Contact Info) Description 06/06/2021 Orders Only [facility] Primary Care at [address] [address] Simon Lundberg MD [address] [place] [address] [address] [place] [address] Social History Tobacco Use Types [...] on file Legal Sex Male 2:52 PM CATEGORY SPECIALIST Gender Identity Male 10/29/2020 12:37 PM CDT Sexual Orientation Straight 10/29/2020 12 :37 PM CDT documented as of this encounter Plan of Treatment Not on file documented as of this encounter Visit Diagnoses Not on filedocumented in this encounter Care Teams Station Chief Relationship Specialty Start Date End Date Simon Lundberg MD [address] [place] [address] PCP - General Family Medicine 05/20/21 08/22/21 [place] [address] [address] [address] Consulting Physician Endocrinology 05/20/21 [place] [address] [address] [address] Consulting Physician Internal Medicine 05/20/21 documented as of this encounter
--- OUTSIDE RECORDS SUMMARY | 2024-04-19 23:07 | XMS_ITS | Encounter Summary ---
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 Gender Identity Male 10/29/2020 12:37 PM CDT Sexual Orientation Straight 10/29/2020 12 :37 PM CDT documented as of this encounter Plan of Treatment Not on file documented as of this encounter Procedures Procedure Name Priority Date/Time Associated Diagnosis Comments SCAN - LABS 05/27/2021 10:09 PM SANDING MACHINE TENDER documented in this encounter Results * SCAN - LABS (05/27/2021 10:09 PM SANDING MACHINE TENDER) us Provider Scanning Final Result documented in this encounter Visit Diagnoses Not on filedocumented in this encounter Care Teams Park Recreation Manager Relationship Specialty Start Date End Date Simon Lundberg MD [address] [place] [address] PCP - General Family Medicine 05/20/21 08/22/21 [place] [address] [address] [address] Consulting Physician Endocrinology 05/20/21 [place] [address] [address] [address] Consulting Physician Internal Medicine 05/20/21 documented as of this encounter
--- OUTSIDE RECORDS SUMMARY | 2024-04-19 23:07 | XMS_ITS | Encounter Summary ---
Author Organization [facility] Address [address] [facility] [address] [place] [address] Care Team Providers Care Medical Language Specialist Name Role Phone Braydon Pavon Primary Care Provider Nikolay Lancaster MD Unavailable [phone] Encounter Details Date Type Department Care Team (Late st Contact Info) Description 02/04/2021 Telephone [facility] Specialists Of [address] [address] Guicho Lind[place], [place] [address] [facility] [address] [place] [address] Social History Tobacco Use Types Packs/Day Years [...] on file 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 Gender Identity Male 10/29/2020 12:37 PM CDT Sexual Orientation Straight 10/29/2020 12 :37 PM CDT documented as of this encounter Miscellaneous Notes * Telephone Encounter - Wanda Bro - 02/04/2021 9:38 AM CDT Called patient per providers request to move appt form 3:15 to 1 pm lmom documented in this encounter Plan of Treatment Not on file documented as of this encounter Visit Diagnoses Not on filedocumented in this encounter Care Teams Medical Language Specialist Relationship Specialty Start Date End Date Braydon Pavon PA [address] [place] [address] PCP - General Family Practice 05/09/20 05/19/21 Nikolay Lancaster MD [address] [place] [address] 05/09/20 05/19/21 documented as of this encounter
--- OUTSIDE RECORDS SUMMARY | 2024-04-19 23:07 | XMS_ITS | Encounter Summary ---
Author Organization [facility] Address [address] [facility] [address] [place] [address] Care Team Providers Care Journeyman Electrician Pv Installer Name Role Phone Simon Lundberg MD Primary Care Provider [phone] Nacho Rodriguez MD Unavailable + [phone] Elian Gross MD Unavailable Reason for Visit * Reason Onset Date Comments pain management referral 05/21/2021 Encounter Details Date Type Department Care Team (Late st Contact Info) Description 05/21/2021 Telephone [facility] Primary Care at [address] [address] Simon Lundberg MD [address] [place] [address] [address] [place] [address] pain management referral Social History Tobacco Use Types Packs/Day Years [...] on file 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 Ni office doesn't take his insurance. He would like a referral to a different pain management clinic. CLEANER HELPER documented in this encounter Plan of Treatment Not on file documented as of this encounter Visit Diagnoses Not on filedocumented in this encounter Care Teams Journeyman Electrician Pv Installer Relationship Specialty Start Date End Date Simon Lundberg MD [address] [place] [address] PCP - General Family Medicine 05/20/21 08/22/21 [place] [address] [address] Consulting Physician Endocrinology 05/20/21 [place] [address] [address] [facility] [address] [address] Consulting Physician Internal Medicine 05/20/21 documented as of this encounter
--- OUTSIDE RECORDS SUMMARY | 2024-04-19 23:07 | XMS_ITS | Encounter Summary ---
Author Organization [facility] Address [address] [place] [address] Phone Care Team Providers Care Ward Service Supervisor Name Role Phone Braydon Pavon Primary Care Provider [phone] Nikolay Lancaster MD Unavailable [phone] Reason for Visit * Reason Onset Date Comments GI PRE PROCEDURE ASSESSMENT 03/01/2021 12.1 0.2020 AT [address] R[facility]SE AT [facility] Encounter Details Date Type Department Care Team (Late st Contact Info) Description 03/01/2021 Telephone [facility] [address] 8[address] [place] [address] [place] [address] Faith Hooker GI PRE PROCEDURE ASSESSMENT (04.12.2021 AT [address] 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 Gender Identity Male 10/29/2020 12:37 PM CDT Sexual Orientation Straight 10/29/2020 12 :37 PM CDT documented as of this encounter Ordered Prescriptions Prescription Sig Dispense Quantity Refills Last Filled Start Date End Date polyethylene glycol (GoLYTELY) 236-22.74-6.74 -5.86 gram solutionIndications :bowel prep Take 4,000 mL by mouth once for 1 dose 4000 mL 03/01/2021 03/01/2021 documented in this encounter Miscellaneous Notes * Telephone Encounter - Faith HookerMendez - 03/01/2021 11:04 AM CDT PROCEDURE Type: Colonoscopy Indication: CRC screen/ repeat due to poor prep on previous exam Referring Physician: Elian Estrada Date Referred: 12-17-2020- 3-6 mo f/u scope due to poor prep CLINICAL ASSESSMENT [x]COVID Screening questions [x] Covid vaccination yes [x]BMI>45, Weight >350 lbs BMI Readings from Last 1 Encounters: 12/17/20 39.53 kg/m?? Wt Readings from Last 1 Encounters: 12/17/20 117.9 kg (260 lb) [] Patient had GI procedure/CPAP clinic/GI clinic <30 days (if Yes, no medical screening questions needed unless new clinical issues in last 30 days) Medical screening questions: BMI/Weight: NA CARDIOVASCULAR: None RESPIRATORY/LUNG: None RENAL/LIVER/GI: Cirrhosis- If therapeutic procedure (other than EGD for varices) or if colonoscopy,need recent plt>50 and fibrinogen >120. Otherwise escalate to physician to consider cryoprecipiate or BRIT BLEEDING/CLOTTING: None NEUROLOGICAL: None ENDOCRINE: Diabetes- No BG above 250 or AIC >10 for [facility]. No BG =>400 for [facility]. Bg>300 at [facility] may get rescheduled PT BG RUNS HIGH ON AVERAGE PRIOR PROCEDURE ISSUES: None KEY OPERATOR/: NA IMPLANTS.: None Notes: DIABETIC MEDS Y/N: Yes [x]Yes- Discuss diabetes medication management with prescribing physician DIALYSIS Y/N: No/NA []HD- Schedule on non-HD day, see protocol []PD- Drain PD fluid AM of procedure, if colonoscopy order AB ppx, see protocol PACEMAKER/ICD Y/N: No/NA Device info: Last documented device check: Any shocks since last cards visit (if yes must see cardiology for procedure clearance): BLOOD THINNERS/ANTICOAG/ANTIPLATELET (BESIDES ASA) Medication: NONE Physician contacted for hold order/date sent: Hold order Method sent: Date hold received: Hold instructions: CONTINUE ASPIRIN INFORMATION REQUESTED []Imaging: []Medical Progress Note/H&P []Medication list []Other: PATIENT OPTIMIZATION []Physician reviewing escalation: []CPAP: Date scheduled: Outcome : [] Location limitations: Scheduling Scheduling location limitations: Dump Operator needed [x] NA Language: POA [x] NA Name: SPECIAL PROCEDURE INSTRUCTIONS Scheduling Notes Procedure information Date of procedure: 04.12.2021 Time of procedure: 10am Arrival time: 9 am Location: [facility] Proceduralist: Demi Rouse Instructions Method of instructions: Mailed copy and Verbal [x]Confirmation of ride/teacher of the hearing impaired [x]Post anesthesia restrictions given [x]NPO Instructions: [x]Diet Instructions: [x]Take non-blood thinner prescription meds that morning [x]Bring med list, photo ID, insurance card, no valuables [x]Bring COVID vaccination card (if vaccinated) Bowel Prep Prep prescribed: Other (list) 2 GOLYTELY PREP Method of Bowel Prep (RX): E-Scribe Copy GOLYELY / PT TO SERVICE REPRESENTATIVE DULCOLAX AND MAG CIT ----- Message from Faith Hooker sent at 01/31/2021 9:38 AM CDT ----- Regarding: colon repeat he did a terrible job with his bowel prep, solid stool everywhere, he needs to be reschedule for colonoscopy in 3 to 6 months with a 2 day bowel prep please. Repeat March - June 2021 documented in this encounter Plan of Treatment Not on file documented as of this encounter Visit Diagnoses Diagnosis Screen for colon cancer- Primary Special screening for malignant neoplasms, colon documented in this encounter Orders Case Request Count Last Ordered Date First Orde red Date CASE REQUEST GI 1 03/01/2021 documented in this encounter Care Teams Ward Service Supervisor Relationship Specialty Start Date End Date Braydon Pavon PA [address] [place] [address] PCP - General Family Practice 05/09/20 05/19/21 Nikolay Lancaster MD [address] [place] [address] 05/09/20 05/19/21 documented as of this encounter
--- OUTSIDE RECORDS SUMMARY | 2024-04-19 23:07 | XMS_ITS | Encounter Summary ---
Author Organization [facility] Address [address] [place] [address] Care Team Providers Care Corrections Identification Technician Name Role Phone Nacho Rodriguez MD Unavailable [phone] Elian Gross MD Unavailable Braydon Pavon Primary Care Provider [phone] Encounter Details Date Type Department Care Team (Late st Contact Info) Description 08/23/2021 8:00 AM CDT - 08/23/2021 8:45 AM CDT Surgery [facility] Endoscopy [address] [place] [address] Elian Gross MD [address] [facility] [address] [place], [place] [id number] Not Performed COLONOSCOPY Social History Tobacco Use Types Packs/Day Years [...] on file 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 Gender Identity Male 10/29/2020 12:37 PM CDT Sexual Orientation Straight 10/29/2020 12 :37 PM CDT documented as of this encounter Last Filed Vital Signs Vital Sign Reading Time Taken Comments Blood Pressure 153/73 08/23/2021 7:35 AM CDT Pulse 89 08/23/2021 7:35 AM CDT Temperature 36.2 ??C (97.2 ??F) 08/23/2021 7:00 AM CD T Respiratory Rate 18 08/23/2021 7:35 AM CDT Oxygen Saturation 94% 08/23/2021 7:35 AM CDT Inhaled Oxygen Concentration - - Weight 117.9 kg (260 lb) 08/23/2021 7:00 AM CDT Height 172.7 cm (5' 8 ) 08/23/2021 7:00 AM CDT Body Mass Index 39.53 08/23/2021 7:00 AM CDT documented in this encounter Medications at Time of Discharge ALPRAZolam (XANAX) 1 mg tablet Take 1 tablet (1 mg total) by mouth 3 (three) times a day as needed for anxiety 03/29/2021 BD Ultra-Fine Short Pen Needle 31 gauge x 5/16 needle Inject 1 each under the skin daily To be used with the victoza 100 each 3 11/07/2020 Dexcom G6 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 Use to check blood sugar. 1 each 05/21/2021 Dexcom G6 Sensor device 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 Change sensor every 10 days. 3 each 3 05/21/2021 Dexcom G6 Transmitter device 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 Change transmitter every 90 days. 1 each 05/21/2021 HUMULIN R U-500, CONC, KWIKPEN 500 unit/mL (3 mL) CONCENTRATED injection 01/02/2018 hydroCHLOROthiazide (HYDRODIURIL) 25 mg tablet Take 1 tablet (25 mg total) by mouth daily lactulose solution 10 gram/15mL TAKE 30MLS BY MOUTH FOUR TIMES A DAY NEEDED 09/10/2015 ONETOUCH ULTRA BLUE TEST STRIP strip 01/05/2018 ferrous sulfate 325 mg (65 mg of elemental iron) tabletIndications:I amarilis Deficiency Anemia Take 1 tablet (325 mg total) by mouth daily with breakfast 30 tablet 11 05/22/2021 05/22/19 23 sildenafiL (VIAGRA) 50 mg tablet Take 1 tablet (50 mg total) by mouth daily as needed for erectile dysfunction 4 tablet 11 05/23/2021 05/23/19 23 acetaminophen-codei ne (TYLENOL with CODEINE #3) 300-30 mg per tablet Take 1 tablet by mouth every 4 (four) hours as needed for pain 01/20/20 24 cyclobenzaprine (FLEXERIL) 5 mg tablet 11/09/2020 01/20/20 24 omeprazole (PriLOSEC) 20 mg capsule 2 times daily. 09/10/2015 01/20/20 24 ondansetron (ZOFRAN) 4 mg tablet take 1 tab every 8 hours prn nausea and vomitting 09/10/2015 01/20/20 24 PROVENTIL HFA 90 mcg/actuation inhaler 01/14/2018 01/20/20 24 rifAXIMin (XIFAXAN) 550 mg tabletIndications:H epatic Encephalopathy Take 1 tablet (550 mg total) by mouth 2 (two) times a day 60 tablet 11 08/30/2020 01/20/20 24 semaglutide (Ozempic) 1 mg/dose (2 mg/1.5 mL) pen injector injection Inject 1 mg under the skin every 7 days Sample Lot [id number] Exp 03/03/2023 x 2 pens 2 pen 11/07/2020 09/03/19 22 traMADoL (ULTRAM) 50 mg tablet Take 1 tablet (50 mg total) by mouth every 8 (eight) hours as needed for pain 45 tablet 06/06/2021 01/20/20 24 Victoza 3-Anatoliy 0.6 mg/0.1 mL (18 mg/3 mL) injection INJECT 1.8 MG UNDER THE SKIN DAILY 9 mL 1 07/03/2021 09/03/19 22 documented as of this encounter Discharge Disposition Disposition Code Departure Means Destination Discharge to home or self care documented in this encounter H&P Notes * Elian Gross MD - 08/23/2021 7:42 AM CDT Pre Endoscopy History and Physical Camilo Curry is a 50 y.o. male who is here for Procedure(s): COLONOSCOPY The indication(s) for the procedure(s): Screening colonoscopy, colonoscopy 1 year ago poor prep.. Past Medical History: Diagnosis Date ??? DM type 2 (diabetes mellitus, type 2) (HCC) dx 2011 ??? Gallbladder calculus ??? GAVE (gastric antral vascular ectasia) ??? Heart murmur ??? Hepatic encephalopathy (CMS/HCC) (HCC) ??? 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 Mild tricuspid regurgitation ECHO can be found media tab. dated 10/02/15 Past Surgical History: Procedure Laterality Date ??? COLONOSCOPY ??? ESOPHAGEAL VARICE LIGATION ??? TIPS INITIAL N/A 11/23/2015 ??? TIPS REVISION N/A 01/10/2021 Social History Tobacco Use ??? Smoking status: Former Smoker Quit date: 2003 Years since quittin.3 ??? Smokeless tobacco: Never Used Substance Use Topics ??? Alcohol use: No Family History Problem Relation Age of Onset ??? Ovarian cancer Mother ??? Throat cancer Father ??? Breast cancer Other Family history of malignant neoplasm of breast - Relation: Grandmother (Added by TW Conv) ??? Stomach cancer Other Family history of malignant neoplasm of stomach - Relation: Grandmother (Added by TW Conv) ??? Heart attack Other Family history of myocardial infarction - Relation: Grandmother (Added by TW Conv) ??? Hypertension Other Family history of hypertension - Relation: Grandmother (Added by TW Conv) Allergies Allergen Reactions ??? Azactam [Aztreonam] Shortness of breath ??? Ciprofloxacin Shortness of breath and Urticaria ??? Octreotide Shortness of breath ??? Penicillins Anaphylaxis, Hives and Shortness of breath ??? Duloxetine Hives and Nausea only ??? Dye Swelling ??? Erythromycin Hives ??? Esomeprazole Hives and Other (See comments) Dr. Vigil okay giving protonix ??? Iodine Swelling ??? Iv Contrast Dye [Iodinated Contrast Media] Swelling and Edema ??? Nexium [Esomeprazole Magnesium] Hives ??? Penicillin Hives ??? Prochlorperazine Unknown Poss. hives w/IV dose ??? Sulfa (Sulfonamide Antibiotics) Hives ??? Nisoldipine Unknown Prior to Admission medications Medication Sig Start Date End Date Taking? Authorizing Provider ALPRAZolam (XANAX) 1 mg tablet 03/29/21 Yes Tyler Page MD HUMULIN R U-500, CONC, KWIKPEN 500 unit/mL (3 mL) CONCENTRATED injection 01/02/18 Yes Tyler Page MD lactulose solution 10 gram/15mL TAKE 30MLS BY MOUTH FOUR TIMES A DAY NEEDED 09/10/15 Yes Tyler Page MD omeprazole (PriLOSEC) 20 mg capsule 2 times daily. 09/10/15 Yes Tyler Page MD ondansetron (ZOFRAN) 4 mg tablet take 1 tab every 8 hours prn nausea and vomitting 09/10/15 Yes Tyler Page MD PROVENTIL HFA 90 mcg/actuation inhaler 01/14/18 Yes Tyler Page MD traMADoL (ULTRAM) 50 mg tablet Take 1 tablet (50 mg total) by mouth every 8 (eight) hours as neededfor pain 06/06/21 Yes Simon Lundberg MD acetaminophen-codeine (TYLENOL with CODEINE #3) 300-30 mg per tablet Take 1 tablet by mouth every 4(four) hours as needed for pain Tyler Page MD BD Ultra-Fine Short Pen Needle 31 gauge x 5/16 needle Inject 1 each under the skin daily To be used with the victoza 11/07/20 Nacho Rodriguez MD cyclobenzaprine (FLEXERIL) 5 mg tablet 11/09/20 Tyler Page MD Dexcom G6 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 Use to check blood sugar. 05/21/21 Nacho Rodriguez MD Dexcom G6 Sensor device 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 Change sensor every 10 days. 05/21/21 Nacho Rodriguez MD Dexcom G6 Transmitter device 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 Change transmitter every 90 days. 05/21/21 Nacho Rodriguez MD ferrous sulfate 325 mg (65 mg of elemental iron) tablet Take 1 tablet (325 mg total) by mouth dailywith breakfast 05/22/21 05/22/22 Simon Lundberg MD hydroCHLOROthiazide (HYDRODIURIL) 25 mg tablet Take 25 mg by mouth daily Provider, MD Tyler ONETOUCH ULTRA BLUE TEST STRIP strip 01/05/18 ProviderTyler MD rifAXIMin (XIFAXAN) 550 mg tablet Take 1 tablet (550 mg total) by mouth 2 (two) times a day 08/30/20Elian Gross MD semaglutide (Ozempic) 1 mg/dose (2 mg/1.5 mL) pen injector injection Inject 1 mg under the skin every 7 days Sample Lot [id number] Exp 03/03/2023 x 2 pens 11/07/20 Nacho Rodriguez MD sildenafiL (VIAGRA) 50 mg tablet Take 1 tablet (50 mg total) by mouth daily as needed for erectile dysfunction 05/23/21 05/23/22 Simon Lundberg MD Victoza 3-Anatoliy 0.6 mg/0.1 mL (18 mg/3 mL) injection INJECT 1.8 MG UNDER THE SKIN DAILY 07/03/21 Nacho Rodriguez MD Review of Systems A pertinent, focused review of systems was completed and negative, except as noted above. OBJECTIVE: Vitals: Vitals: 08/23/21 0720 08/23/21 0725 08/23/21 0730 08/23/21 0735 BP: 151/84 150/74 144/76 153/73 Pulse: 94 91 86 89 Resp: Temp: TempSrc: SpO2: 97% 97% 95% 94% Weight: Height: Physical Exam: Airway: No significant abnormality. Cardiac: No significant abnormality. Pulmonary: No significant abnormality. Neurological: No significant abnormality. Gastrointestinal: No significant abnormality. ASA Score: per Anesthesia Sedation/Anesthesia Plan: per Anesthesia The risks and complications of the procedure have been explained to the patient. Informed consent was signed. Impression and plan: Will proceed with the planned procedure for the reasons stated above. documented in this encounter Miscellaneous Notes * Pre-Procedure Instructions - Yulissa Mirza RN - 08/22/2021 10:27 AM CDT Please follow any instruction you were given re:Bowel prep When you arrive come to [facility] hospital entrance. As you enter there will be an information desk-let them know you are here for a procedure and they will direct you to procedure registration area. Once registered one of the endoscopy nurses will come to get you ready for your procedure. Dress comfortable, leave any valuables at home, specifically pyle, jewelry. For your safety due to the anesthesia you will not be able to drive so please have a ride arranged to and from hospital with a responsible adult. You will be screened for Covid symptoms, Covid exposure. You are required to wear a mask I want to reassure you all staff are screened and we do wear masks If your mixer driver chooses to come into the building, they will be required to wear a mask If your mixer driver chooses not to come in or will be picking you up after your procedure with anesthesia we will call your mixer driver to confirm your ride home. documented in this encounter Plan of Treatment Not on file documented as of this encounter Procedures Procedure Name Priority Date/Time Associated Diagnosis Comments POCT GLUCOSE DEVICE Routine 08/23/2021 8 :18 AM CDT POCT GLUCOSE DEVICE Routine 08/23/2021 7 :32 AM CDT documented in this encounter Results * (ABNORMAL) POCT glucose (08/23/2021 8:18 AM CDT) [facility] Signature Glucose, POC 298(H) 70 - 199 mg/dL [facility] Comment: Interpretive Data Glucose is assumed to be non-fasting. Fasting Glucose reference ranges are: 0 - 150 years: ??70 mg/dL - 99 mg/dL Current interpretive data was last revised on 2014. POC Performer [id number] [facility] POC Device Number [id number] [facility] Blood 08/23/2021 8:18 AM CDT 08/23/2021 8:18 AM CDT us Elian Draper MD LAB POCT ORD ERABLES - DEVICE Final Result Performing Organization Address [facility] Co de Phone Number [facility] [address] [place] [address] * (ABNORMAL) POCT glucose (08/23/2021 7:32 AM CDT) [facility] Signature Glucose, POC 344(H) 70 - 199 mg/dL [facility] Comment: Interpretive Data Glucose is assumed to be non-fasting. Fasting Glucose reference ranges are: 0 - 150 years: ??70 mg/dL - 99 mg/dL Current interpretive data was last revised on 2014. POC Performer [id number] [facility] POC Device Number [id number] [facility] Blood 08/23/2021 7:32 AM CDT 08/23/2021 7:32 AM CDT us Elian Draper MD LAB POCT ORD ERABLES - DEVICE Final Result Performing Organization Address [facility] Co de Phone Number [facility] [address] [place] [address] documented in this encounter Visit Diagnoses Diagnosis Screen for colon cancer- Primary Special screening for malignant neoplasms, colon Screen for colon cancer Special screening for malignant neoplasms, colon documented in this encounter Admitting Diagnoses Diagnosis Screen for colon cancer Special screening for malignant neoplasms, colon documented in this encounter Administered Medications Inactive Administered Medications - up to 3 most recent administrations Medication Order MAR Action Action Date Dose Rate Site famotidine (PEPCID) injection 20 mg 20 mg, intravenous, Administer over 2 Minutes, Once, On Thu08/23/21 at 0830, For 1 dose, Pre-Op Given 08/23/2021 7:53 AM CDT 20 mg insulin regular (HumuLIN R, NovoLIN R) 100 unit/mL injection 8 Units 8 Units, intravenous, Once, On Thu08/23/21 at 0830, For 1 dose, Pre-Op Given 08/23/2021 7:53 AM CDT 8 Units metoclopramide (REGLAN) injection 10 mg 10 mg, intravenous, Administer over 1 Minutes, Once, On Thu08/23/21 at 0830, For 1 dose, Pre-Op Given 08/23/2021 7:53 AM CDT 10 mg ondansetron (ZOFRAN) injection 4 mg 4 mg, intravenous, Administer over 2 Minutes, Every 6 hours PRN, nausea, vomiting, Starting on Thu08/23/21 at 0707, Pre-Procedure (GI) Given 08/23/2021 7:53 AM CDT 4 mg sodium chloride 0.9% flush 0.5-20 mL 0.5-20 mL, intra-catheter, As needed, line care, Starting on Thu08/23/21 at 0707, Pre-Procedure (GI), Flush volume based on line type and size. Flush before and after each use. , Indications: FlushingIndications:Flushing sodium chloride 0.9% flush 0.5-20 mL 0.5-20 mL, intra-catheter, Every 8 hours scheduled, First dose on Thu08/23/21 at 0745, Pre-Procedure (GI), Flush volume based on line type and size. sodium chloride 0.9% flush 0.5-20 mL 0.5-20 mL, intra-catheter, As needed, line care, Starting on Thu08/23/21 at 0707, Pre-Procedure (GI), Flush volume based on line type and size. Flush before and after each use. sodium chloride 0.9% infusion 30 mL/hr, intravenous, Continuous, Starting on Thu08/23/21 at 0745, Pre-Procedure (GI) sodium chloride 0.9% infusion 30 mL/hr, intravenous, Continuous, Starting on Thu08/23/21 at 0745, Pre-Procedure (GI) New Bag 08/23/2021 7:52 AM CDT 30 mL/hr 30 mL/hr documented in this encounter Active and Recently Administered Medications Times are shown in CDT. Scheduled Medication Order 08/21/2021 08/22/2021 08/23/2021 famotidine (PEPCID) injection 20 mg (COMPLETED) 20 mg, intravenous, Administer over 2 Minutes, Once, On Thu08/23/21 at 0830, For 1 dose, Pre-Op 075 (Given - Provid er: Marina Mcconnell RN) insulin regular (HumuLIN R, NovoLIN R) 100 unit/mL injection 8 Units (COMPLETED)(Linked Group 1) 8 Units, intravenous, Once, On Thu08/23/21 at 0830, For 1 dose, Pre-Op 075 (Given - Provid er: Marina Mcconnell RN) metoclopramide (REGLAN) injection 10 mg (COMPLETED) 10 mg, intravenous, Administer over 1 Minutes, Once, On Thu08/23/21 at 0830, For 1 dose, Pre-Op 075 (Given - Provid er: Marina Mcconnell RN) ondansetron (ZOFRAN) injection 4 mg 4 mg, intravenous, Administer over 2 Minutes, Once, On Thu08/23/21 at 0830, For 1 dose, Pre-Op 0830 (Due) sodium chloride 0.9% flush 0.5-20 mL 0.5-20 mL, intra-catheter, Every 8 hours scheduled, First dose on Thu08/23/21 at 0745, Pre-Procedure (GI), Flush volume based on line type and size. 0745 (Due) Continuous Medication Order 08/21/2021 08/22/2021 08/23/2021 sodium chloride 0.9% infusion 30 mL/hr, intravenous, Continuous, Starting on Thu08/23/21 at 0745, Pre-Procedure (GI) 0745 (Due) sodium chloride 0.9% infusion 30 mL/hr, intravenous, Continuous, Starting on Thu08/23/21 at 0745, Pre-Procedure (GI) 0708 (Due)0752 (New Bag - Provider: Marina Mcconnell RN)0754 (Canceled Entry - Provider: Olya Martínez CRNA)1244 (Due: Stopped) PRN Medication Order 08/21/2021 08/22/2021 08/23/2021 ondansetron (ZOFRAN) injection 4 mg 4 mg, intravenous, Administer over 2 Minutes, Every 6 hours PRN, nausea, vomiting, Starting on Thu08/23/21 at 0707, Pre-Procedure (GI) 0753 (Given - Provid er: Marina Mcconnell RN) sodium chloride 0.9% flush 0.5-20 mL 0.5-20 mL, intra-catheter, As needed, line care, Starting on Thu08/23/21 at 0707, Pre-Procedure (GI), Flush volume based on line type and size. Flush before and after each use. , Indications: Flushing sodium chloride 0.9% flush 0.5-20 mL 0.5-20 mL, intra-catheter, As needed, line care, Starting on Thu08/23/21 at 0707, Pre-Procedure (GI), Flush volume based on line type and size. Flush before and after each use. Linked Groups Order Group 1: insulin regular (HumuLIN R, NovoLIN R) 100 unit/mL injection 8 Units (COMPLETED)Jump to med 8 Units, intravenous, Once, On Thu08/23/21 at 0830, For 1 dose, Pre-Op And POCT glucose (CANCELED) Once (Routine), On Thu08/23/21 at 0745, For 1 occurrence, 1 hour after administering IV push Insulin Regular. Communicate result with MD., Pre-Op And POCT glucose (CANCELED) Once (Routine), On Thu08/23/21 at 0745, For 1 occurrence, 3 hours after administering IV push Insulin Regular. Communicate result with MD., Pre-Op documented in this encounter Orders Medications Ordered That Ronnie ht Not Have Been Administered Count Last Ordered Date First Ordered Date ondansetron (ZOFRAN) injection 4 mg 1 08/23 sodium chloride 0.9% flush 0.5-20 mL 3 08/03 sodium chloride 0.9% infusion 1 08/23/2021 documented in this encounter Care Teams Corrections Identification Technician Relationship Specialty Start Date End Date Braydon Pavon PA [address] [place] [address] PCP - General 08/23/21 [place] [address] [place] [address] Consulting Physician Endocrinology 05/20/21 [place] [address] [place] [address] Consulting Physician Internal Medicine 05/20/21 documented as of this encounter
--- OUTSIDE RECORDS SUMMARY | 2024-04-19 23:07 | XMS_ITS | Encounter Summary ---
Author Organization [facility] Healthcare Address [address] [place] [address] Care Team Providers Care Bottoming Machine Operator Name Role Phone Braydon Pavon Primary Care Provider [phone] Nikolay Lancaster MD Unavailable [phone] Encounter Details Date Type Department Care Team (Late st Contact Info) Description 01/02/2021 Telephone 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 Rx# [id number] documented in this encounter Plan of Treatment Not on file documented as of this encounter Visit Diagnoses Not on filedocumented in this encounter Care Teams Bottoming Machine Operator Relationship Specialty Start Date End Date Braydon Pavon PA [address] [place] [address] PCP - General Family Practice 05/09/20 05/19/21 Nikolay Lancaster MD [address] [address] 05/09/20 05/19/21 documented as of this encounter
--- OUTSIDE RECORDS SUMMARY | 2024-04-19 23:07 | XMS_ITS | Encounter Summary ---
Author Organization [facility] Address [address] [place] [address] Phone Care Team Providers Care Tar Pot Worker Name Role Phone Braydon aPvon Primary Care Provider [phone] Nikolay Lancaster MD Unavailable [phone] Reason for Visit * Reason Onset Date Comments Reschedule Colonoscopy 04/23/2021 Encounter Details Date Type Department Care Team (Late st Contact Info) Description 04/23/2021 Telephone [facility] [address] [facility] 8th [place] [address] [place] [address] Faith Hooker. Reschedule Colonoscopy Social History Tobacco Use Types Packs/Day Years [...] on file Legal Sex Male 2:52 PM PARCEL POST DELIVERY Gender Identity Male 10/29/2020 12:37 PM CDT Sexual Orientation Straight 10/29/2020 12 :37 PM CDT documented as of this encounter Miscellaneous Notes * Telephone Encounter - Faith Hooker - 05/08/2021 12:14 PM CST I spoke with Camilo and let him know that our elective procedures will be placed on hold due to covidsurge. I let him know it could be 4-6 weeks for us to know when we can resume elective procedures He verbalized understanding. We agreed that I will reach out in June or July to f/u. EL POST DELIVERY * Telephone Encounter - Faith Hooker - 04/24/2021 1:32 PM CST I called Camilo at [phone], I was unable to reach him. I LMOR for a return call. EL POST DELIVERY * Telephone Encounter - Faith Hooker - 04/23/2021 10:09 AM CST I called Camilo at [phone], I was unable to reach him. I LMOR for a return call. ----- Message from Brianna Vázquez LPN sent at 04/16/2021 1:02 PM [employer]CEL [employer] DELIVERY ----- Regarding: RE: colon repeat Thanks! ----- Message ----- From: Faith Hooker Sent: 04/16/2021 12:51 PM PARCEL [employer] DELIVERY To: Brianna Vázquez LPN Subject: RE: colon repeat He left a message canceling. I have him in my f/u lists to get him rescheduled. ----- Message ----- From: Brianna Vázquez LPN Sent: 04/16/2021 12:47 PM [employer]CEL [employer] DELIVERY To: Faith Hooker Subject: RE: colon repeat I'm not seeing this in his chart at all... am I missing something? ----- Message ----- From: Faith Hooker Sent: 04/13/2021 12:00 AM PARCEL POST DELIVERY To: Brianna Vázquez LPN Subject: FW: colon repeat [facility]ED[facility] [place] [facility]21 AT 10[facility] ----- Message ----- From: Faith Hooker Sent: 02/26/2021 To: Jose Roberto Russell Subject: colon repeat he did a terrible job with his bowel prep, solid stool everywhere, he needs to be reschedule for colonoscopy in 3 to 6 months with a 2 day bowel prep please. Repeat March - June 2021 EL POST DELIVERY EL POST DELIVERY documented in this encounter Plan of Treatment Not on file documented as of this encounter Visit Diagnoses Not on filedocumented in this encounter Care Teams Tar Pot Worker Relationship Specialty Start Date End Date Braydon Pavon PA [address] [place] [address] PCP - General Family Practice 05/09/20 05/19/21 Nikolay Lancaster MD [address] [place] [address] 05/09/20 05/19/21 documented as of this encounter
--- OUTSIDE RECORDS SUMMARY | 2024-04-19 23:07 | XMS_ITS | Continuity of Care Document ---
Author Organization [facility] Address [address] [place] [address] Care Team Providers Care Real Estate Assistant Name Role Phone JANETH PAVON Primary Care Provider Assessment No assessment recorded. Plan of Treatment Reminders Order Date Submit Date Provider Last Modified By Organization Details Last Modified Time Details Appointments None recorded. Lab None recorded. Referral None recorded. Procedures None recorded. Surgeries None recorded. Imaging MRI, lumbar spine, w/o contrast 2023 024 [facility] Radiology, [address] [place], [address], 07:55:02 Medication Orders None recorded. Patient TargetsNo targets recorded. Patient Instructions Encounter Date Encounter Id Patient Instructions Last Modified By Organization Details Last Modified Time 03/23/2024 [id number] A healthy lifestyle: care instructions jnanney Not available 03/23/2024 11:17:48 type 2 diabetes: care instructions jnanney Not available 03/23/2024 11:17:48 Reason for Referral None Reported. Results Created Date Observation Date Name Description Value Unit Range Abnormal Flag Note LastModifiedBy Organization Detail LastModifiedTime 02/24/2002/23/2024 XR, abdom en No observ ation [email or web address] [address] [place], [address], 02/24/2024 08:59:19 04/17/20 24 04/16/2024 MRI, lumba r spine , w/o contr ast No observ ation record ed. [facility] [address] [place], [address], 04/18/2024 12:31:37 Result Notes None recorded. Problems Name Problem SNOMED Code Status Onset Date Resolution Date Notes Provider Name and Address Organization Details Recorded Time Diabetes mellitus 07249193 Active 2018 [facility] [place], [place] - [facility] 1 10:51:15 Liver finding 393712227 Active 2018 [facility] [place] [facility] 1 10:51:15 Hyperglycem ia due to type 2 diabetes mellitus 9040579493333 09 Active [facility] [place] [facility] 4 09:09:59 Type 2 diabetes mellitus in obese 73217191 Active [facility] [place] [facility] 1 10:51:15 Bacteremia 7249824 Active [facility] [place] [facility] 10:51:15 Gastroesoph ageal reflux disease 097660524 Active [facility] [place] [facility] 1 10:51:15 Abscess 711187936 Active [facility] [place] [facility] 10:51:15 Backache 243416514 Active [facility] [place] [facility] 10:51:15 Hepatic failure 03093642 Active [facility] [place] [facility] 10:51:15 Problem Notes None recorded. Procedures Surgical History Date Name Laterality Status Provider Name and Address Organization Details Recorded Time 6 colonoscopy completed Amanda Amin MA [place] - [facility] 11/15/2021 15:39:15 Imaging Results None recorded. Procedure Notes None recorded. Medical Equipment None Reported. Allergies Allergen ID Allergen Name Allergen Category Reaction Reaction Severity Criticality Documentation Date Start Date Code Code System Note Provider Name and Address Organization Details Recorded Time 942284 Medicinal product containin g penicilli n and acting as antibacte rial agent (product) medicatio n Not available Not available Not available 12/16/2017 51011 05 SNOMED [facility] [place], [place] - [facility] 8 11:58:06 508421 Substance with sulfonami de structure and antibacte rial mechanism of action (substanc e) medicatio n Not available Not available Not available 12/16/2017 95947 8003 SNOMED [facility] [place], [facility] 8 11:58:12 310289 Nexium medicatio n Not available Not available Not available 12/16/2017 99063 9 RxNo[facility] [place], [facility] 8 11:58:19 783234 erythromy roxana medicatio n Not available Not available Not available 12/16/2017 4053 [facility] [place], [place] - [facility] 8 11:58:25 270475 Iodinated contrast media (substanc e) medicatio n Not available Not available Not available 12/16/2017 71404 2004 SNOMED [facility] [place], [place] - [facility] 8 11:58:35 860928 ciproflox acin medicatio n Not available Not available Not available 12/16/2017 2551 RxNo[facility] [place], [place] - [facility] 8 11:58:48 794879 Azactam medicatio n Not available Not available Not available 12/16/2017 26424 1 [facility] [place], [place] [facility] 8 11:58:56 284335 aztreonam medicatio n Not available Not available Not available 12/16/2017 1272 [facility] [place] [facility] 8 11:59:03 705239 octreotid e Not available Not available Not available Not available 12/16/2017 7617 [facility] [place] [facility] 8 11:59:10 544711 duloxetin e medicatio n Not available Not available Not available 12/16/2017 31197 Rx[facility] [place] [facility] 8 11:59:19 898020 oxycodone medicatio n other Not available Not available 03/19/2021 7804 RxNorm AMY BAUMAN S Amanda Amin MA [facility], [place] - [facility] 16:02:30 Medications Name Sig Start Date Stop [...] completed Not Available Not Available Not Available [employer] Ultra Test strips USE FOR TESTING BEFORE [...] Updated DateTime 4 171.45 cm 35 kg/m2 026776. 47 g 97 % 97 % 97 /min 128 mm[Hg] 81 mm[Hg] Karina Alvarez MA [place] - [facility] 4 10:54:27 Social History Question Answer Notes LastModified by Organizat ion Details LastModified Time Tobacco Smoking Status Former Smoker [facility] [place], [place] - [facility] 12/16/2017 12:02:47 What Is Your [...] Anxious, Or Unable To Sleep At Night)? [id number] [email or web address] Information not available 08/21/2021 Do You [...] High Blood Pressure N Atrial Fibrillation N Thyroid Problems N Kidney or Bladder Problems N GI Problems Y Depression Y COPD N Blood Clots N Skin Problems N Anemia N Heart Attack (PA) N Diabetes Y Anxiety Disorder Y Muscle, [...] mcg/0.3 mL dose 12/08/2020 completed Not Available [facility] 4 10:49:05 COVID-19, mRNA, LNP-S, PF, 30 mcg/0.3 mL dose 12/29/2020 completed Not Available [facility] 4 10:49:05 Hep A-Hep B 09/10/2015 completed Amanda Amin MA Merged with [facility] 07/20/2023 09:11:13 Past Encounters Encounter ID Performer Location Encounter Start Date Encounter Closed Date Diagnosis/Indication Diagnosis SNOMED-CT Code Diagnosis ICD10 Code [id number] TOM Kunz [address] [place] [address] 03/03/2024 10:44:06 03/04/2024 13:36:40 Chronic low back pain 975221896 M54.59 Morbid obesity 780519002 E66.01 [id number] TOM Kunz [facility] [address] [place] [address] 03/08/2024 14:46:39 03/09/2024 16:00:13 Seizure 37063875 G40.89 Uncontroll ed type 2 diabetes mellitus 492725252 E11.65 Dissociati ve convulsions 790409664 F44.5 Overweight 059123502 E66 .3 [id number] Janeth Pavon PA-C [facility] [address] [place] [address] 03/23/2024 10:36:19 03/28/2024 10:16:17 Lumbar radiculopathy 659643752 M54.16 Uncontroll ed type 2 diabetes mellitus 279364705 E11.65 Overweight 479828044 E66 .3 Health Concerns Section Related Observation LastModified by Organization Detai ls LastModified Time None Recorded Concern Status LastModified by Organization Details LastModified Time None Recorded Payers Encounter Date Sequence Insurance Name Policy Number Policy Cordero Covered Member ID Cordero Member ID Guarantor Name 03/23/2024 1 [employer] [place] - DOS ON OR AFTER 2020 (MEDICAID REPLACEMENT - HMO) Camilo Curry [id number] Camilo Curry Notes Date Note Type Note Provider Name and Address Organization Details Recorded Time 03/23/2024 text/html injured his lower back moving furniture...nee ds MRI...xray and CT spine were negative...phys therapy was ineffective...w as just in LATOYA Pavon PA-C Attn: Accounting,[address] [facility], [place], [address], [facility] 03/23/2024 11:18:37
--- OUTSIDE RECORDS SUMMARY | 2024-04-19 23:07 | XMS_ITS | Encounter Summary ---
Author Organization [facility] Address [address] [facility] [address] [place] [address] Care Team Providers Care Public Information Officer Name Role Phone Simon Lundberg MD Primary Care Provider [phone] Nacho Rodriguez MD Unavailable [phone] Elian Gross MD Unavailable Reason for Visit * Reason Onset Date Comments order for covid test 05/22/2021 Encounter Details Date Type Department Care Team (Late st Contact Info) Description 05/22/2021 Telephone [facility] Primary Care at [address] [address] Simon Lundberg MD [address] [place] [address] [address] [place] [address] order for covid test Social History Tobacco Use Types Packs/Day Years [...] on file Legal Sex Male 2:52 PM OFFICE ADMIN Gender Identity Male 10/29/2020 12:37 PM CDT Sexual Orientation Straight 10/29/2020 12 :37 PM CDT documented as of this encounter Miscellaneous Notes * Telephone Encounter - Norm Garcia - 05/22/2021 1:32 PM CST Lab order printed and faxed to the hospital. CE ADMIN * Telephone Encounter - Simon Lundberg MD - 05/22/2021 12:55 PM OFFICE ADMIN It will need to be faxed to that hospital CE ADMIN * Telephone Encounter - Norm Garcia - 05/22/2021 12:22 PM CST Patient called and would like a covid test sent to [facility]. He has had exposureto his granddaughter that tested positive. CE ADMIN documented in this encounter Plan of Treatment Not on file documented as of this encounter Procedures Procedure Name Priority Date/Time Associated Diagnosis Comments COVID-19 ORONAVIRUS RNA (OUTSIDE LABS) Routine 05/22/2021 Close exposure to COVID-19 virus documented in this encounter Results * COVID-19 CORONAVIRUS RNA (OUTSIDE LABS) Nasopharyngeal (05/22/2021) SCRIBED COVID-19 Coronavirus RNA Negative Not Detected, Negative, Undetected EXTERNAL LAB Nasopharyngeal 05/22/2021 us Simon Lundberg MD LAB MICROBIOLOGY - GENERAL ORDERABLES Final Result EXTERNAL LAB documented in this encounter Visit Diagnoses Diagnosis Close exposure to COVID-19 virus- Primary documented in this encounter Care Teams Public Information Officer Relationship Specialty Start Date End Date Simon Lundberg MD [address] [place] [address] PCP - General Family Medicine 05/20/21 08/22/21 [place] [address] [address] [address] Consulting Physician Endocrinology 05/20/21 [place] [address] [address] [address] Consulting Physician Internal Medicine 05/20/21 documented as of this encounter
--- OUTSIDE RECORDS SUMMARY | 2024-04-19 23:07 | XMS_ITS | Encounter Summary ---
Author Organization [facility] Medical [facility] Address [address] [facility] [address] [place] [address] Care Team Providers Care Aircraft Powertrain Repairer Name Role Phone Simon Lundberg MD Primary Care Provider [phone] Nacho Rodriguez MD Unavailable + [phone] Elian Gross MD Unavailable Reason for Visit * Reason Comments New Patient new patient Encounter Details Date Type Department Care Team (Late st Contact Info) Description 05/20/2021 9:00 AM HOSPITAL ADMINISTRATIVE ASSISTANT Office Visit [facility] Medical [facility] Primary Care at [address] [address] Simon Lundberg MD [address] [place] [address] [address] [place] [address] Encounter for medical examination to establish care (Primary Dx); Hepatic cirrhosis, unspecified hepatic cirrhosis type, unspecified whether ascites present (HCC); Diabetic neuropathy associated with type 2 diabetes mellitus (CMS/HCC) (HCC); Morbid obesity with body mass index (BMI) of 40.0 to 44.9 in adult (HCC); Secondary esophageal varices without bleeding (CMS/HCC) (HCC); Thrombocytopenia (CMS/HCC) (HCC); Essential hypertension; Vitamin D deficiency; BLAND (nonalcoholic steatohepatitis); Lumbar degenerative disc disease Social History Tobacco Use Types Packs/Day Years [...] on file Legal Sex Male 2:52 PM HOSPITAL ADMINISTRATIVE ASSISTANT Gender Identity Male 10/29/2020 12:37 PM CDT Sexual Orientation Straight 10/29/2020 12 :37 PM CDT documented as of this encounter Last Filed Vital Signs Vital Sign Reading Time Taken Comments Blood Pressure 124/70 05/20/2021 9:01 AM HOSPITAL ADMINISTRATIVE ASSISTANT Pulse 106 05/20/2021 9:01 AM HOSPITAL ADMINISTRATIVE ASSISTANT Temperature 36.8 ??C (98.3 ??F) 05/20/2021 9:01 AM CS T Respiratory Rate 16 05/20/2021 9:01 AM HOSPITAL ADMINISTRATIVE ASSISTANT Oxygen Saturation 97% 05/20/2021 9:01 AM HOSPITAL ADMINISTRATIVE ASSISTANT Inhaled Oxygen Concentration - - Weight 117.9 kg (260 lb) 05/20/2021 9:01 AM HOSPITAL ADMINISTRATIVE ASSISTANT Height 172.7 cm (5' 8 ) 05/20/2021 9:01 AM HOSPITAL ADMINISTRATIVE ASSISTANT Body Mass Index 39.53 05/20/2021 9:01 AM HOSPITAL ADMINISTRATIVE ASSISTANT documented in this encounter Patient Instructions * Patient Instructions* Simon Lundberg MD - 05/20/2021 9:00 AM HOSPITAL ADMINISTRATIVE ASSISTANT Need follow-up arranged with wind tunnel technician, children's ministry director Planning on referral to shipyard painting supervisor Will need to check in to the tips follow-up Labs as ordered today, I will direct the Jeremi c to his children's ministry director's office. Continuing the current regimen for now. Blood pressure is controlled at this time. We may need to try to get the stress test done as well. Thanks for coming in today! My medical assistants and I are thankful you have trusted us with your care, and hope that you received EXCELLENT care today! Please do not hesitate to call if you have any questions or concerns at [phone]. You may receive a phone call, text, MYCHART message, or e-mail asking about your care today. We would love to hear your feedback on how EXCELLENT your care wastoday! Wishing you better health, always. Dr. Lundberg ITAL ADMINISTRATIVE ASSISTANT documented in this encounter Progress Notes * Simon Lundberg MD - 05/20/2021 9:00 AM CST SUBJECTIVE: Camilo Curry is a 50 y.o. male presenting today to establish care. He has an unfortunate history of cirrhosis, also history of diabetes, anxiety, hypertension. RecentER visit for anxiety. He is overdue for his liver studies which she usually gets every 3 months. Hehas a problem with low lumbar stenosis, need to pain management physician. His wind tunnel technician ordered a stress test a year ago, but never obtained. He needs to make follow-up appointments with his wind tunnel technician, his children's ministry director. He notes some difficulty getting through to his telephone repairer Current Outpatient Medications Medication Sig Dispense Refill ??? acetaminophen-codeine (TYLENOL with CODEINE #3) 300-30 mg per tablet Take 1 tablet by mouth every 4 (four) hours as needed for pain ??? ALPRAZolam (XANAX) 1 mg tablet ??? BD Ultra-Fine Short Pen Needle 31 gauge x 5/16 needle Inject 1 each under the skin daily To beused with the victoza 100 each 3 ??? cyclobenzaprine (FLEXERIL) 5 mg tablet ??? HUMULIN R U-500, CONC, KWIKPEN 500 unit/mL (3 mL) CONCENTRATED injection ??? hydroCHLOROthiazide (HYDRODIURIL) 25 mg tablet Take 25 mg by mouth daily ??? lactulose solution 10 gram/15mL TAKE 30MLS BY MOUTH FOUR TIMES A DAY NEEDED ??? omeprazole (PriLOSEC) 20 mg capsule 2 times daily. ??? ondansetron (ZOFRAN) 4 mg tablet take 1 tab every 8 hours prn nausea and vomitting ??? ONETOUCH ULTRA BLUE TEST STRIP strip ??? PROVENTIL HFA 90 mcg/actuation inhaler ??? rifAXIMin (XIFAXAN) 550 mg tablet Take 1 tablet (550 mg total) by mouth 2 (two) times a day 60 tablet 11 ??? semaglutide (Ozempic) 1 mg/dose (2 mg/1.5 mL) pen injector injection Inject 1 mg under the skinevery 7 days Sample Lot [id number] Exp 03/03/2023 x 2 pens 2 pen 0 ??? traMADol (ULTRAM) 50 mg tablet TAKE 1 TABLET 3 TIMES DAILY NEEDED. ??? Victoza 3-Anatoliy 0.6 mg/0.1 mL (18 mg/3 mL) injection INJECT 1.8 MG UNDER THE SKIN DAILY 3 mL 0 No current facility-administered medications for this visit. Allergies: Azactam [aztreonam], Ciprofloxacin, Octreotide, Penicillins, Duloxetine, Dye, Erythromycin, Esomeprazole, Iodine, Iv contrast dye [iodinated contrast media], Nexium [esomeprazole magnesium], Penicillin, Sulfa (sulfonamide antibiotics), Nisoldipine, and Prochlorperazine Past Medical History: Diagnosis Date ??? DM type 2 (diabetes mellitus, type 2) (HCC) dx 2011 ??? Gallbladder calculus ??? GAVE (gastric antral vascular ectasia) ??? Heart murmur ??? Heart valve disease ??? BLAND (nonalcoholic steatohepatitis) Past Surgical History: Procedure Laterality Date ??? COLONOSCOPY ??? ESOPHAGEAL VARICE LIGATION ??? TIPS INITIAL N/A 11/23/2015 ??? TIPS REVISION N/A 01/10/2021 ??? UPPER GASTROINTESTINAL ENDOSCOPY Family History Problem Relation Age of Onset ??? Ovarian cancer Mother Ovarian cancer - (Added by TW Conv) ??? Throat cancer Father Throat cancer - (Added by TW Conv) ??? Breast cancer Other Family history of [...] - Relation: Grandmother (Added by TW Conv) Social History Tobacco Use ??? Smoking status: Former Smoker ??? Smokeless tobacco: Never Used Vaping Use ??? Vaping Use: Never used Substance Use Topics ??? Alcohol use: No ??? Drug use: No Review of Systems Constitutional: Negative. HENT: Negative. Eyes: Negative. Respiratory: Negative. Cardiovascular: Positive for chest pain. Palpitations: Occasional, precordial, sharp. Gastrointestinal: Positive for abdominal pain. Genitourinary: Negative. Musculoskeletal: Negative. Skin: Negative. Neurological: Negative. Endo/Heme/Allergies: Negative. Psychiatric/Behavioral: Negative. Negative for depression. OBJECTIVE: BP 124/70 (BP Location: Right arm, Patient Position: Sitting) Pulse 106 Temp 36.8 ??C (98.3 ??F) (Temporal) Resp 16 Ht 172.7 cm (5' 8 ) Wt 117.9 kg (260 lb) SpO2 97% BMI 39.53 kg/m?? Physical Exam Vitals reviewed. Constitutional: Appearance: He is well-developed. HENT: Head: Normocephalic and atraumatic. Right Ear: External ear normal. Left Ear: External ear normal. Eyes: Conjunctiva/sclera: Conjunctivae normal. Neck: Vascular: No carotid bruit. Cardiovascular: Rate and Rhythm: Normal rate and regular rhythm. Heart sounds: Normal heart sounds. No murmur heard. No friction rub. No gallop. Pulmonary: Effort: Pulmonary effort is normal. Breath sounds: Normal breath sounds. Abdominal: General: Bowel sounds are normal. Palpations: Abdomen is soft. Musculoskeletal: General: Normal range of motion. Cervical back: Normal range of motion and neck supple. Skin: General: Skin is warm and dry. Neurological: Mental Status: He is alert and oriented to person, place, and time. Cranial Nerves: No cranial nerve deficit. Diagnoses and all orders for this visit: Encounter for medical examination to establish care (Primary) Assessment & Plan: A initial well visit to establish care [...] unless otherwise indicated. Need follow-up arranged with wind tunnel technician, children's ministry director Planning on referral to shipyard painting supervisor Will need to check in to the tips follow-up Labs as ordered today, I will direct the A1 c to his children's ministry director's office. Continuing the current regimen for now. Blood pressure is controlled at this time. We may need to try to get the stress test done as well. Hepatic cirrhosis, unspecified hepatic cirrhosis type, unspecified whether ascites present (HCC) - Comprehensive metabolic panel; Future Diabetic neuropathy associated with type 2 diabetes mellitus (CMS/HCC) (HCC) - Albumin Creatinine Ratio, Urine; Future - Hemoglobin A1c; Future Morbid obesity with body mass index (BMI) of 40.0 to 44.9 in adult (HCC) - Lipid panel; Future Secondary esophageal varices without bleeding (CMS/HCC) (HCC) Thrombocytopenia (CMS/HCC) (HCC) - CBC with auto differential; Future Essential hypertension - CBC with auto differential; Future Vitamin D deficiency - Vitamin D 25 hydroxy; Future BLAND (nonalcoholic steatohepatitis) Lumbar degenerative disc disease - Ambulatory referral to Pain Management; Future ITAL ADMINISTRATIVE ASSISTANT documented in this encounter Miscellaneous Notes * Assessment & Plan Note - Simon Lundberg MD - 05/20/2021 9:26 AM HOSPITAL ADMINISTRATIVE ASSISTANT Associated Problem(s): Encounter for medical examination to establish care A initial well visit to establish care [...] unless otherwise indicated. Need follow-up arranged with wind tunnel technician, children's ministry director Planning on referral to shipyard painting supervisor Will need to check in to the tips follow-up Labs as ordered today, I will direct the A1 c to his children's ministry director's office. Continuing the current regimen for now. Blood pressure is controlled at this time. We may need to try to get the stress test done as well. ITAL ADMINISTRATIVE ASSISTANT ITAL ADMINISTRATIVE ASSISTANT documented in this encounter Plan of Treatment Not on file documented as of this encounter Results * (ABNORMAL) Hemoglobin A1c (05/20/2021 9:36 AM HOSPITAL ADMINISTRATIVE ASSISTANT) Hgb A1C 9.8(H) 4.0 - 5.6 % [facility] Estimated Average Glucose 235 mg/dL [facility] Comment: The ADA recommends reporting an estimated Average Glucose (eAG) with all Hemoglobin A1c results using the equation derived from a study of 507 normal and diabetic adults. ??Minority populations were underrepresented and children were not included. ?? (Diabetes Care 31:9653-3752, 2007). ??The eAG is not equivalent to a fasting glucose. Blood 05/20/2021 9:36 AM HOSPITAL ADMINISTRATIVE ASSISTANT 05/20/2021 7:41 PM HOSPITAL ADMINISTRATIVE ASSISTANT Simon Lundberg MD LAB BLOOD ORDERABLES Final Result Performing Organization Address [facility] Co de Phone Number [facility] [id number] [place] [address] * Albumin Creatinine Ratio, Urine (05/20/2021 9:36 AM HOSPITAL ADMINISTRATIVE ASSISTANT) Pathologist [facility] Albumin Ur <12.0 mg/L [facility] Comment: Interpretive Data No reference range established. Current interpretive data was last revised 2018. Creatinine Ur 47.6 mg/dL [facility] Comment: Interpretive Data No reference range established. Current interpretive data was last revised 2018. Albumin Creatinine Ratio, Ur <25 1 - 29 mg/g [facility] Urine 05/20/2021 9:36 AM HOSPITAL ADMINISTRATIVE ASSISTANT 05/20/2021 7:41 PM HOSPITAL ADMINISTRATIVE ASSISTANT Simon Lundberg MD LAB URINE ORDERABLES Final Result Performing Organization Address [facility] Co de Phone Number [facility] [id number] [address] [facility] [employer] [place], [place] [id number] * (ABNORMAL) Vitamin D 25 hydroxy (05/20/2021 9:36 AM HOSPITAL ADMINISTRATIVE ASSISTANT) Pathologist [facility] Vitamin D 25-OH 12(L) 30 - 80 ng/mL [facility] Blood 05/20/2021 9:36 AM HOSPITAL ADMINISTRATIVE ASSISTANT 05/20/2021 7:41 PM HOSPITAL ADMINISTRATIVE ASSISTANT us Simon Lundberg MD LAB BLOOD ORDERABLES Final Result Performing Organization Address City/State/ZIP Co hi Phone Number [facility] [phone] [facility] [place] [address] * (ABNORMAL) Lipid panel (05/20/2021 9:36 AM HOSPITAL ADMINISTRATIVE ASSISTANT) Cholesterol 110 30 - 199 mg/dL [facility] Comment: Interpretive Data Ages < or = [...] revised on 2017. Triglycerides 149 <=149 mg/dL [facility] Comment: Interpretive Data Ages < or = [...] on 2017. HDL 33(L) >=40 mg/dL [facility] Comment: Interpretive Data Ages [...] last revised on 2017. Chol/HDL ratio 3 [facility] Blood 05/20/2021 9:36 AM HOSPITAL ADMINISTRATIVE ASSISTANT 05/20/2021 7:41 PM HOSPITAL ADMINISTRATIVE ASSISTANT Simon Lundberg MD LAB BLOOD ORDERABLES Final Result [facility] [id number] [address] [place] Department [place] [address] * (ABNORMAL) Comprehensive metabolic panel (05/20/2021 9:36 AM HOSPITAL ADMINISTRATIVE ASSISTANT) Sodium 139 135 - 145 mmol/L [facility] Potassium, pl 4.7 3.3 - 4.9 mmol/L [facility] Chloride 101 97 - 110 mmol/L [facility] CO2 25 22 - 32 mmol/L [facility] Anion gap 13 2 - 15 mmol/L [facility] BUN 11 8 - 25 mg/dL [facility] Creatinine 0.70(L) 0.80 - 1.30 mg/dL [facility] Glucose 373(H) 70 - 199 mg/dL [facility] Comment: Interpretive Data Fasting glucose >/= 126 [...] classification and Diagnosis of Diabetes Diabetes Care 2017;40 (Suppl. 1):S11. Current interpretive data was last revised 2017. Calcium 9.4 8.5 - 10.3 mg/dL [facility] Bilirubin, total 1.0 0.1 - 1.2 mg/dL [facility] Protein, pl 7.4 6.5 - 8.5 g/dL [facility] Albumin 4.3 3.5 - 5.0 g/dL [facility] Alk phos 78 40 - 130 Units/L [facility] ALT 33 7 - 55 Units/L [facility] AST 36 10 - 50 Units/L [facility] Blood 05/20/2021 9:36 AM HOSPITAL ADMINISTRATIVE ASSISTANT 05/20/2021 7:41 PM HOSPITAL ADMINISTRATIVE ASSISTANT us Simon Lundberg MD LAB [place]LO[place] [id number] [address] Department [place] [address] * (ABNORMAL) CBC with auto differential (05/20/2021 9:36 AM HOSPITAL ADMINISTRATIVE ASSISTANT) WBC 3.4(L) 3.8 - 9.9 K/cumm [facility] Hgb 9.2(L) 13.0 - 17.5 g/dL [facility] Hct 36.1(L) 38.9 - 50.3 % [facility] Plt 100(L) 150 - 400 K/cumm [facility] MPV 11.1 9.1 - 12.3 fL [facility] RBC 4.83 4.30 - 5.80 M/cumm [facility] MCV 74.7(L) 81.3 - 96.4 fL [facility] MCH 19.0(L) 27.1 - 33.3 pg [facility] MCHC 25.5(L) 32.3 - 35.7 g/dL [facility] RDW CV 18.3(H) 11.1 - 14.9 % [facility] RDW SD 48.6(H) 35.7 - 48.1 fL [facility] NRBC abs 0.00 0.00 - 0.01 K/cumm [facility] Blood 05/20/2021 9:36 AM HOSPITAL ADMINISTRATIVE ASSISTANT 05/20/2021 7:41 PM HOSPITAL ADMINISTRATIVE ASSISTANT us Simon Lundberg MD LAB BLOOD ORDERABLES Final Result Performing Organization Address City/State/ZIP Co hi Phone Number [facility] [address] [address] Department [place] [address] documented in this encounter Visit Diagnoses Diagnosis Encounter for medical examination to establish care- Primary Hepatic cirrhosis, unspecified hepatic cirrhosis type, unspecified whether ascites present (HCC) Diabetic neuropathy associated with type 2 diabetes mellitus (CMS/HCC) (HCC) Morbid obesity with body mass index (BMI) of 40.0 to 44.9 in adult (HCC) Secondary esophageal varices without bleeding (CMS/HCC) (HCC) Thrombocytopenia (HCC) Unspecified thrombocytopenia Essential hypertension Unspecified essential hypertension Vitamin D deficiency BLAND (nonalcoholic steatohepatitis) Other chronic nonalcoholic liver disease Lumbar degenerative disc disease documented in this encounter Discontinued Medications Medication Sig Discontinue Reason Start Date End Da te valACYclovir (VALTREX) 1 gram tablet 11/19/2020 05/20/2021 [id number] doephedrine (Virtussin DAC) 2-20-6 mg/mL syrup every 6 (six) hours 05/04 lidocaine (XYLOCAINE) 5 % ointment 11/16/2020 05/20/2021 lidocaine (LIDODERM) 5 % 11/12/2020 022 amitriptyline (ELAVIL) 25 mg tablet 11/16/2020 05/20/2021 ketoconazole (NIZORAL) 2 % cream 11/20/2020 05/20/2021 gabapentin (NEURONTIN) 600 mg tabletIndications:Diabet ic neuropathy associated with type 2 diabetes mellitus (CMS/HCC) (HCC) Take 1 tablet (600 mg total) by mouth 3 (three) times a day 10/29/2020 05/20/2021 FreeStyle Elijah 2 Sensor kitIndications:Type 2 diabetes mellitus with hyperglycemia, with long-term current use of insulin ([facility]) One sensor every 14 days 10/29/2020 05/20/2021 clindamycin (CLINDAGEL) 1 % gel 11/20/2020 05/20/2021 ALPRAZolam (XANAX) 0.5 mg tablet TAKE 1 TABLET TWICE DAILY NEEDED. 09/10/2015 05/20/2021 documented as of this encounter Historical Medications * This list may reflect changes made after this encounter. ALPRAZolam (XANAX) 1 mg tablet Take 1 tablet (1 mg total) by mouth 3 (three) times a day as needed for anxiety 03/29/2021 added in this encounter Care Teams Aircraft Powertrain Repairer Relationship Specialty Start Date End Date Simon Lundberg MD [address] [place] [address] PCP - General Family Medicine 05/20/21 08/22/21 [place] [id number] [address] Consulting Physician Endocrinology 05/20/21 [place] [id number] [address] Consulting Physician Internal Medicine 05/20/21 documented as of this encounter
--- OUTSIDE RECORDS SUMMARY | 2024-04-19 23:07 | XMS_ITS | Clinical Summary ---
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 Use to [...] AND 50 UNITS IN THE EVENING 02/03/20 23 Active HumaLOG 100 unit/mL pen for injection 3 times daily (before meals). 02/03/20 Active traZODone (DESYREL) 100 mg tablet Take 1 tablet (100 mg total) by mouth 2 (two) times a day 02/03/20 Active Active Problems Problem Noted Date Diagnosed Date RUQ abdominal pain 01/20/2024 Encounter for medical examination to establish c are 05/20/2021 Assessment & Plan (05/22/2021 3:58 PM BRAND COMMUNICATIONS MANAGER): A initial well visit to establish care [...] unless otherwise indicated. Need follow-up arranged with county judge, molder apprentice Planning on referral to animated cartoons painter Will need to check in to the tips follow-up Labs as ordered today, I will direct the A1 c to his molder apprentice's office. Continuing the current regimen for now. Blood pressure is controlled at this time. We may need to try to get the stress test done as well. Screen for colon cancer 03/01/2021 Overview (03/01/2021): Added automatically from request for surgery [id number] Diabetic neuropathy associat ed with type 2 diabetes mellitus ([facility]) 10/29/2020 Assessment & Plan (10/29/2020 4:23 PM CDT): Chronic, worsening Start, gabapentin therapy Work on better diabetic control Vitamin D deficiency 10/29/2020 Assessment & Plan (10/29/2020 4:23 PM CDT): Check labs and based on that for the plans Bacterial endocarditis 05/14/2020 Assessment & Plan (05/14/2020 11:09 AM BRAND COMMUNICATIONS MANAGER): Unfortunately the patient's records from [facility] are not available for my review. We [...] 05/14/2020 Assessment & Plan (05/14/2020 11:11 AM BRAND COMMUNICATIONS MANAGER): The patient's dyspnea on exertion is likely [...] weekly - start checking blood sugars Using YottaMarkstZytoprotec nikki 2 sensors - work on portion control diet, exercise every day - Get eye exam soon - do labs - fasting - follow up in 6 weeks with MATTRESS SPECIALIST Chelsea Driscoll ( to discuss about insulin [...] resume home regimen and follow-up with home molder apprentice MATHEUS pain 10/11/2017 Morbid obesity 12/09/2016 TRACY [...] 6:29 PM CDT): Management per primary team Encounters Date Type Department Care Team Description 01/20/2024 Telephone Gastroententerology Charlie North MD 01/19/2024 11:31 PM CDT - 01/20/2024 2:[address] 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); Abnormal finding on liver function; S/P TIPS (transjugular intrahepatic portosystemic shunt) Discharge Disposition: Left Against Medical Advice from Last 3 Months Immunizations Name Administration Dates Next Due Hep A / Hep B 09/10/2015 Hep B Vaccine 11/09/2015 Surgical History Surgery Date Site/Laterality Comments TIPS INITIAL 11/23/2015 N/A ESOPHAGEAL VARICE LIGATION COLONOSCOPY TIPS REVISION 01/10/2021 N/A Medical History Medical History Date Comments Gallbladder calculus Heart murmur GAVE (gastric antral vascular ectasia) DM type 2 (diabetes mellitus, type 2) (HCC) dx 2011 Hepatic encephalopathy (HCC) 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 dated 10/02/15 Family History Medical History Relation Name Comments Throat cancer Father Ovarian cancer Mother Breast cancer Other 1 Family history of malignant neoplasm of breast - Relation: Grandmother (Added by TW Conv) Stomach cancer Other 2 Family histor y of malignant neoplasm of stomach - Relation: Grandmother (Added by TW Conv) Heart attack Other 3 Family history of myocardial infarction - Relation: Grandmother (Added by TW Conv) Hypertension Other 4 Family history of hypertension - Relation: Grandmother (Added by TW Conv) Relation Name Status Comments Father Mother Other 1 Other 2 Other 3 Other 4 Social History Tobacco Use Types Packs/Day Years [...] on file Legal Sex Male 2:52 PM BRAND COMMUNICATIONS MANAGER Gender Identity Male 10/29/2020 12:37 PM CDT Sexual Orientation Straight 10/29/2020 12 :37 PM CDT Obstetrics History Last Filed Vital Signs Vital Sign Reading [...] 11/23/2023 7:53 AM CDT Plan of Treatment Health Maintenance Due Date Last Done Comments Prostate Cancer Screening-PSA 1970 Dilated Eye Exam 1970 Pneumococcal vaccine <65 (1 of 2 - PCV) 1976 DTaP/Tdap/Td Vaccine (1 - Tdap) 1981 Regular Well Visit/Exam 18-64 1988 Zoster Vaccine (1 of 2) 2020 Foot Exam 10/29/2021 10/29/2020 Albumin Creatinine Ratio, Urine 05/20/2022 Depression Screening 05/20/2022 05/20/2021, 05/20/2021, 10/29/2020 Lipid Panel 05/20/2022 05/20/2021, 08/03, 11/07/2015 Covid-19 Vaccine (3 2023-2 5 season) 2024 12/29/2020, 12/08/2020 Influenza Vaccine (#1) 2024 Hemoglobin A1C 05/25/2024 11/23/2023, 11/02, 05/20/2021, Additional history exists eGFR 01/18/2025 01/19/2024, 11/02, 05/20/2021, Additional history exists Colon Cancer Screening-Colonoscopy 12/17/20302020 Hepatitis C Screening Completed 08/23/2015 Medical Devices Implanted Type Area Pan Helper Device Identifier Shelf Expiration Date Model / Serial / Lot [employer] Peripheral Vascular [id number] Lifestar 14mm 60mm 80cm Stent Biliary - [id number] Implanted:Qty: 1 on 01/10/2021 at [facility] [employer]ipheral [employer] 09/15/2023 [id number] / / [id number] Procedures Procedure Name Priority Date/Time Associated Diagnosis [...] CDT LIPID PANEL Routine 05/20/2021 9:36 AM BRAND COMMUNICATIONS MANAGER Morbid obesity with body mass index (BMI) of 40.0 to 44.9 in adult (HCC) ALBUMIN CREATININE RATIO, URINE Routine 05/20/2021 9:36 AM BRAND COMMUNICATIONS MANAGER Diabetic neuropathy associated with type 2 diabetes [...] tendency for uric acid stone formation. Source: [facility] Current Interpretive Data was last revised on [...] for microscopic UA and culture not met. [facility] Urine 01/20/2024 12:5 5 PM CDT 01/20/2024 1:00 PM CDT Giuseppe Pace MD LAB MICROBIOLOGY - GE NERAL ORDERABLES Final Result Performing Organization Address [facility] Co de Phone Number [facility] [address] [place], [place] [id number] * (ABNORMAL) POCT glucose (01/20/2024 10:23 AM CDT) [facility] Glucose, POC 247(H) 70 - 199 mg/dL Comment: Interpretive Data Glucose is assumed to be non-fasting. Fasting Glucose reference ranges are: 0 - 150 years: ??70 mg/dL - 99 mg/dL Current interpretive data was last revised on 2014. POC Performer [id number] [facility]urd[facility] POC Device Number [id number] [facility] Blood 01/20/2024 10:2 3 AM CDT 01/20/2024 10:23 AM CDT Ramírez Rae MD PhD LAB POCT ORDERABLE S - DEVICE Final Result Performing Organization Address [facility] Co de Phone Number [facility] [address] [place] [address] * (ABNORMAL) POCT glucose (01/20/2024 3:00 AM CDT) [facility] Signature Glucose, POC 341(H) 70 - 199 mg/dL Comment: Interpretive Data Glucose is assumed to be non-fasting. Fasting Glucose reference ranges are: 0 - 150 years: ??70 mg/dL - 99 mg/dL Current interpretive data was last revised on 2014. POC Performer [id number] [facility] POC Device Number [id number] [facility] Blood 01/20/2024 3:00 AM CDT 01/20/2024 3:00 AM CDT Giuseppe Pace MD LAB POCT ORDERABLES - DEVICE Final Result [facility] [address] [facility] [place] [address] * US Liver Doppler Complete (01/20/2024 2:58 [...] Darrell Jewell M.D. us Giuseppe Pace MD IM US PROCEDURES Fin al Result * ECG 12-LEAD (01/20/2024 12:38 AM CDT) Narrative CONS SCIMAGE - 01/20/2024 12:38 AM CDT Giuseppe Pace MD ? 01/20/2024 12:39 AM ECG 12 lead Date/Time: 01/20/2024 12:38 AM Performed by: Giuseppe Pace MD Authorized by: Giuseppe Pace MD ?? Quality: ??Tracing quality: ??Limited by artifact Comments: ?? Normal sinus rhythm with a rate of 84. ??Matthews normal. ??There is no ST deviation. ??T-waves [...] sinus rhythm with a rate of 84. Matthews normal. There is no STdeviation. T- waves inverted in AVR and V1. There are no pathologicQ-waves. There is no AV block. There is no ectopy. No acute injury pattern Giuseppe Pace MD 01/20/24 0039 Giuseppe Pace MD ECG ORDERABLES Final Result Performing Organization Address [facility] de Phone Number CONS SCIMAGE * Troponin [...] BLOOD ORDERABLES Final Result Performing Organization Address [facility] de Phone Number [facility] [address] [facility]. [place] [address] * (ABNORMAL) Ammonia (01/20/2024 12:19 AM CDT) Ammonia 104(H) <=50 mcmol/L Blood 01/20/2024 12:1 9 AM CDT 01/20/2024 12:23 AM CDT Giuseppe Pace MD LAB BLOOD ORDERABLES Final Result [facility] [address] [place] [address] * CT Abdomen Pelvis WO Contrast (01/20/2024 [...] with liver Doppler. Preliminary report dictated by corporate communications associate teleradiologist, Dr. Pancho Covarrubias. Dictated by: Neeraj [...] with liver Doppler. Preliminary report dictated by corporate communications associate teleradiologist, Dr. Pancho Covarrubias. Dictated by: Neeraj [...] of Race in Diagnosing Kidney Disease, JASN 202). The CKD-EPI equation should not be used for patients with unstable renal function and has not been validated in children and those over 70. Current interpretive data was last reviewed 2021. Blood 01/19/2024 10:3 1 PM CDT 01/19/2024 10:33 PM CDT us Giuseppe Pace MD LAB BLOOD ORDERABLES Final Result [facility]ARD [address] [place] [address] * (ABNORMAL) Differential, auto (01/19/2024 10:31 PM CDT) Neutrophil abs 2.6 1.5 - 6.5 K/cumm Imm gran abs 0.0 0.0 - 0.1 K/cumm [facility] Lymphocyte abs 0.7(L) 0.8 - 3.3 K/cumm [facility] Monocyte abs 0.4 0.2 - 0.8 K/cumm [facility] Eosinophil abs 0.1 0.0 - 0.5 K/cumm [facility] Basophil abs 0.1 0.0 - 0.1 K/cumm [facility] Neutrophil pct 65.8 % [facility] Comment: Interpretive Data Percent cell count reference ranges are not reported, since discordance with absolute values may lead to misinterpretation of CBC data. Current Interpretive Data was last revised on 2017. Imm gran pct 0.5 % [facility] Comment: Interpretive Data Percent cell count reference ranges are not reported, since discordance with absolute values may lead to misinterpretation of CBC data. Current Interpretive Data was last revised on 2017. Lymphocyte pct 18.5 % [facility]ARD Comment: Interpretive Data Percent cell count reference ranges are not reported, since discordance with absolute values may lead to misinterpretation of CBC data. Current Interpretive Data was last revised on 2017. Monocyte pct 10.6 % [facility] WARD Comment: Interpretive Data Percent cell count reference ranges are not reported, since discordance with absolute values may lead to misinterpretation of CBC data. Current Interpretive Data was last revised on 2017. Eosinophil pct 3.3 % OM[facility]ARD Comment: Interpretive Data Percent cell count reference ranges are not reported, since discordance with absolute values may lead to misinterpretation of CBC data. Current Interpretive Data was last revised on 2017. Basophil pct 1.3 % [facility] Comment: Interpretive Data Percent cell count reference ranges are not reported, since discordance with absolute values may lead to misinterpretation of CBC data. Current Interpretive Data was last revised on 2017. Blood 01/19/2024 10:3 1 PM CDT 01/19/2024 10:33 PM CDT Giuseppe Pace MD LAB BLOOD ORDERABLES Final Result Performing Organization Address [facility] Co de Phone Number [facility] [address] [facility]. [facility] [place] [place] [address] * (ABNORMAL) CBC with auto differential (01/19/2024 10:31 PM CDT) [facility] WBC 4.0 3.8 - 9.9 K/cumm Hgb 15.4 13.0 - 17.5 g/dL [facility] Hct 44.4 38.9 - 50.3 % [facility] Plt 80(L) 150 - 400 K/cumm [facility] MPV 11.2 9.1 - 12.3 fL [facility] RBC 5.28 4.30 - 5.80 M/cumm [facility] MCV 84.1 81.3 - 96.4 fL [facility] MCH 29.2 27.1 - 33.3 pg [facility] MCHC 34.7 32.3 - 35.7 g/dL [facility] RDW CV 18.0(H) 11.1 - 14.9 % [facility] RDW SD 52.4(H) 35.7 - 48.1 fL [facility] NRBC abs 0.02(H) 0.00 - 0.01 K/cumm [facility] Blood (Blood, Venous) 01/19/2024 10:31 PM CDT 01/19/2024 10:33 PM CDT Giuseppe Pace MD LAB BLOOD ORDERABLES Final Result Performing Organization Address City/[facility]/ZIP Co de Phone Number [facility] MICHELCH [address] [facility]. [facility] [place] [place] [address] * Lipase (01/19/2024 10:31 PM CDT) Pathologist [facility] Lipase 19 10 - 99 Units/L Blood (Blood, Venous) 01/19/2024 10:31 PM CDT 01/19/2024 10:33 PM CDT Giuseppe Pace MD LAB BLOOD ORDERABLES Final Result Performing Organization Address [facility] de Phone Number [facility] MICHELCH [address] [facility]. [facility] [place] [address] * (ABNORMAL) Comprehensive metabolic panel (01/19/2024 10:31 PM CDT) [facility] Sodium 134(L) 135 - 145 mmol/L Potassium, pl 4.6 3.3 - 4.9 mmol/L [facility] Chloride 99 97 - 110 mmol/L [facility] CO2 26 22 - 32 mmol/L [facility] Anion gap 9 2 - 15 mmol/L [facility] BUN 10 6 - 25 mg/dL [facility] Creatinine 0.70(L) 0.80 - 1.30 mg/dL [facility] Glucose 405(H) 70 - 199 mg/dL [facility] Comment: Interpretive Data Fasting glucose >/= 126 [...] 2022. Calcium 9.2 8.5 - 10.3 mg/dL [facility] Bilirubin, total 2.3(H) 0.1 - 1.2 mg/dL [facility] Protein, pl 6.4(L) 6.5 - 8.5 g/dL [facility] Albumin 3.7 3.5 - 5.0 g/dL [facility] Alk phos 85 40 - 130 Units/L [facility] ALT 17 7 - 55 Units/L [facility] AST 30 10 - 50 Units/L [facility] Comment:Hemolyzed; result ma y be falsely elevated. Blood 01/19/2024 10:3 1 PM CDT 01/19/2024 10:33 PM CDT Giuseppe Pace MD LAB BLOOD ORDERABLES Final Result Performing Organization Address [facility] Co de Phone Number [facility] [address] [facility] Department [place] [address] * (ABNORMAL) Hemoglobin A1c (11/23/2023 8:40 AM CDT) Pathologist [facility] Hgb A1C 10.0(H) 4.0 - 5.6 % Estimated Average Glucose 240 mg/dL [facility] Comment: The ADA recommends reporting an estimated [...] MD LAB BLOOD ORDERABLES Fi nal Result Performing Organization Address City/[facility]/ZIP Co de Phone Number [facility] [place] [address] * Albumin Creatinine Ratio, Urine (05/20/2021 9:36 AM BRAND COMMUNICATIONS MANAGER) [facility] Albumin Ur <12.0 mg/L M[facility]ER Comment: Interpretive Data No reference range established. Current interpretive data was last revised 2018. Creatinine Ur 47.6 mg/dL [facility] MARTINEZ Comment: Interpretive Data No reference range established. Current interpretive data was last revised 2018. Albumin Creatinine Ratio, Ur <25 1 - 29 mg/g [facility] MARTINE[facility] Urine 05/20/2021 9:36 AM BRAND COMMUNICATIONS MANAGER 05/20/2021 7:41 PM BRAND COMMUNICATIONS MANAGER us Simon Lundberg MD LAB URINE ORDERABLES Final Result [facility] [address] [address] [place] [address] * (ABNORMAL) Lipid panel (05/20/2021 9:36 AM BRAND COMMUNICATIONS MANAGER) Cholesterol 110 30 - 199 mg/dL [facility] MARTINE[facility] Comment: Interpretive Data Ages [...] on 2017. Triglycerides 149 <=149 mg/dL [facility] MARTINE[facility] Comment: Interpretive Data Ages [...] 2017. LDL, calculated 47 <=129 mg/dL M[facility] Comment: Interpretive Data Ages < [...] revised on 2017. Chol/HDL ratio 3 [facility] MARTINEZ Blood 05/20/2021 9:36 AM BRAND COMMUNICATIONS MANAGER 05/20/2021 7:41 PM BRAND COMMUNICATIONS MANAGER us Simon Lundberg MD LAB BLOOD ORDERABLES Final Result MOH[facility]ER [address] [address] Department of Laboratories [place] [phone] * COLONOSCOPY (12/17/2020 10:24 AM CDT) Anatomical Region Laterality Modality Other Narrative Procedure Note Elian Gross MD - 12/17/2020 10:24 AM CDT ENDOSCOPY LAB Patient Name: Camilo Curry Procedure Date: 12/17/2020 10:24 AM Date of : 1970 Admit Type: Outpatient Age: 50 Gender: Male Attending MD: Elian Vivar M.D. Room: [facility] ENDOSCOPY ROOM 02 Note Status: [...] the physician, the nurse, the anesthesiologist, the sheet catcher and thetechnician in the pre-procedure area in [...] The scope was passed under direct vision.The [id number] was introduced through the anusand advanced to the hepatic flexure. The colonoscopywas performed without difficulty. The patient tolerated the procedure well. The quality of the bowel preparation was unsatisfactory. The quality of the bowel preparation was evaluated using the BBPS([place] Bowel Preparation Scale) with scores of: RightColon [...] 12/17/2020 10:24 AM Elian Draper MD ENDOSCOPY [place] OCEDURES Final Result * Serum Hepatitis panel (08/23/2015 5:23 PM CDT) HBV surface ag Negative NEG HISTO RICAL RESULTS HCV ab Negative NEG HISTORICAL RESULTS Comment: Interpretive Data If confirmation is required, call Laboratory Customer Service to request sample to be sent to [facility] for Hepatitis C Virus (HCV) RNA Detection and Quantitation by Real-Time Reverse Crab Meat Processor-PCR (RT-PCR). Current interpretive data was last revised [...] Most Recently Relevant to Health Maintenance Insurance AETNA [facility] AETNA [facility] A[employer] [facility] Advance Directives For more information, please contact: [phone] * Full Code (Latest Code Status on [...] 11:57 AM 02/03/2018 5:26 AM Care Teams Spearer Relationship Specialty Start Date End Date Braydon Pavon PA [address] [place] [address] PCP - General 08/23/21 [place] [address] [address] [facility] [address], [place] [address] Consulting Physician Endocrinology 05/20/21 [place] [address] [address] [facility] [address], [place] [address] Consulting Physician Internal Medicine 05/20/21
--- OUTSIDE RECORDS SUMMARY | 2024-04-19 23:07 | XMS_ITS | Encounter Summary ---
Author Organization [facility] Healthcare Address [address] [place] [address] Care Team Providers Care Nuclear Plant Instrument Technician Name Role Phone Simon Lundberg MD Primary Care Provider [phone] Nacho Rodriguez MD Unavailable [phone] Elian Gross MD Unavailable Encounter Details Date Type Department Care Team (Late st Contact Info) Description 05/20/2021 5:25 PM [facility] Lab [address] [address] Diabetic neuropathy associated with type 2 diabetes mellitus (CMS/HCC) (HCC); Vitamin D deficiency; Morbid obesity with body mass index (BMI) of 40.0 to 44.9 in adult (HCC); Hepatic cirrhosis, unspecified hepatic cirrhosis type, unspecified whether ascites present (HCC); Thrombocytopenia (CMS/HCC) (HCC); Essential hypertension Social History Tobacco Use Types Packs/Day Years [...] on file Legal Sex Male 2:52 PM [facility]BER Gender Identity Male 10/29/2020 12:37 PM CDT Sexual Orientation Straight 10/29/2020 12 :37 PM CDT documented as of this encounter Plan of Treatment Not on file documented as of this encounter Procedures Procedure Name Priority Date/Time Associated Diagnosis Comments EGFR Routine 05/20/2021 9:36 AM [facility] Hepatic cirrhosis, unspecified hepatic cirrhosis type, unspecified whether ascites present (HCC) DIFFERENTIAL AUTO Routine 05/20/2021 9:3 6 AM [facility] Thrombocytopenia (CMS/HCC) (HCC) Essential hypertension CBC WITH AUTO DIFFERENTIAL Routine 05/20/2021 9:36 AM [facility] Thrombocytopenia (CMS/HCC) (HCC) Essential hypertension ALBUMIN CREATININE RATIO, URINE Routine 05/20/2021 9:36 AM [facility] Diabetic neuropathy associated with type 2 diabetes mellitus (CMS/HCC) (HCC) VITAMIN D 25 HYDROXY Routine 05/20/2021 9:36 AM [facility] Vitamin D deficiency HEMOGLOBIN A1C Routine 05/20/2021 9:36 AM [facility] Diabetic neuropathy associated with type 2 diabetes mellitus (CMS/HCC) (HCC) LIPID PANEL Routine 05/20/2021 9:36 AM [facility] Morbid obesity with body mass index (BMI) of 40.0 to 44.9 in adult (HCC) COMPREHENSIVE METABOLIC PANEL Routine 05/20/2021 9:36 AM [facility] Hepatic cirrhosis, unspecified hepatic cirrhosis type, unspecified whether ascites present (HCC) documented in this encounter Results * eGFR (05/20/2021 9:36 AM [facility]) eGFR 112 mL/min/1. 73 m2 [facility] MARTINE[facility] Comment: Interpretive Data Reference Interval Normal ?>/= [...] interpretive data was last reviewed 2021. Blood 05/20/2021 9:36 AM [facility] 05/20/2021 8:16 PM [facility] Simon Lundberg MD LAB BLOOD ORDERABLES Final Result [facility] [id number] Department [place] [address] * (ABNORMAL) Differential, auto (05/20/2021 9:36 AM [facility]) Neutrophil abs 2.6 1.7 - 6.5 K/cumm [facility] Imm gran abs 0.0 0.0 - 0.1 K/cumm [facility] Lymphocyte abs 0.4(L) 0.8 - 3.3 K/cumm [facility] Monocyte abs 0.3 0.2 - 0.8 K/cumm [facility] Eosinophil abs 0.1 0.0 - 0.5 K/cumm [facility] Basophil abs 0.0 0.0 - 0.1 K/cumm [facility] Neutrophil pct 75.1 % [facility] Comment: Consistent with previous result Interpretive Data Percent cell count reference ranges are not reported, since discordance with absolute values may lead to misinterpretation of CBC data. Current Interpretive Data was last revised on 2017. Imm gran pct 0.3 % [facility] Comment: Interpretive Data Percent cell count reference ranges are not reported, since discordance with absolute values may lead to misinterpretation of CBC data. Current Interpretive Data was last revised on 2017. Lymphocyte pct 11.7 % [facility] Comment: Interpretive Data Percent cell count reference ranges are not reported, since discordance with absolute values may lead to misinterpretation of CBC data. Current Interpretive Data was last revised on 2017. Monocyte pct 9.4 % [facility] Comment: Interpretive Data Percent cell count reference ranges are not reported, since discordance with absolute values may lead to misinterpretation of CBC data. Current Interpretive Data was last revised on 2017. Eosinophil pct 2.6 % [facility] Comment: Interpretive Data Percent cell count reference ranges are not reported, since discordance with absolute values may lead to misinterpretation of CBC data. Current Interpretive Data was last revised on 2017. Basophil pct 0.9 % [facility] Comment: Interpretive Data Percent cell count reference ranges are not reported, since discordance with absolute values may lead to misinterpretation of CBC data. Current Interpretive Data was last revised on 2017. Blood 05/20/2021 9:36 AM [facility] 05/20/2021 7:41 PM [facility] Simon Lundberg MD LAB BLOOD ORDERABLES Final Result [facility] [id number] Department [place] [address] * (ABNORMAL) CBC with auto differential (05/20/2021 9:36 AM [facility]) WBC 3.4(L) 3.8 - 9.9 K/cumm [facility] Hgb 9.2(L) 13.0 - 17.5 g/dL [facility] Hct 36.1(L) 38.9 - 50.3 % [facility] Plt 100(L) 150 - 400 K/cumm [facility] MPV 11.1 9.1 - 12.3 fL [facility] RBC 4.83 4.30 - 5.80 M/cumm [facility] MCV 74.7(L) 81.3 - 96.4 fL [facility] MCH 19.0(L) 27.1 - 33.3 pg [facility] MCHC 25.5(L) 32.3 - 35.7 g/dL [facility] RDW CV 18.3(H) 11.1 - 14.9 % [facility] RDW SD 48.6(H) 35.7 - 48.1 fL [facility] NRBC abs 0.00 0.00 - 0.01 K/cumm [facility] Blood 05/20/2021 9:36 AM [facility] 05/20/2021 7:41 PM [facility] us Simon Lundberg MD LAB BLOOD ORDERABLES Final Result Performing Organization Address City/State/[facility] Co de Phone Number [facility] [id number] Department [place] [address] * (ABNORMAL) Comprehensive metabolic panel (05/20/2021 9:36 AM [facility]) Sodium 139 135 - 145 mmol/L [facility] Potassium, pl 4.7 3.3 - 4.9 mmol/L [facility] Chloride 101 97 - 110 mmol/L [facility] CO2 25 22 - 32 mmol/L [facility] Anion gap 13 2 - 15 mmol/L [facility] BUN 11 8 - 25 mg/dL [facility] Creatinine 0.70(L) 0.80 - 1.30 mg/dL [facility] Glucose 373(H) 70 - 199 mg/dL [facility] Comment: Interpretive Data Fasting glucose >/= 126 [...] Units/L [facility] Blood 05/20/2021 9:36 AM [facility] 05/20/2021 7:41 PM [facility] us Simon Lundberg MD LAB BLOOD ORDERABLES Final Result Performing Organization Address City/State/ZIP Co nv Phone Number [facility] [phone] Department [place] [address] * (ABNORMAL) Lipid panel (05/20/2021 9:36 AM [facility]) Cholesterol 110 30 - 199 mg/dL [facility] Comment: Interpretive Data Ages < or = [...] revised on 2017. Triglycerides 149 <=149 mg/dL [facility] Comment: Interpretive Data Ages < or = [...] revised on 2017. Non-HDL Cholesterol 77 mg/dL [facility] Comment: Interpretive Data Ages < or = [...] 3 [facility] Blood 05/20/2021 9:36 AM [facility] 05/20/2021 7:41 PM [facility] Simon Lundberg MD LAB BLOOD ORDERABLES Final Result Performing Organization Address [facility] de Phone Number [facility] [phone] [place] [address] * (ABNORMAL) Vitamin D 25 hydroxy (05/20/2021 9:36 AM [facility]) Vitamin D 25-OH 12(L) 30 - 80 ng/mL [facility] Blood 05/20/2021 9:36 AM [facility] 05/20/2021 7:41 PM [facility] Simon Lundberg MD LAB BLOOD ORDERABLES Final Result Performing Organization Address [facility] de Phone Number PAMELAPAULA MARTINEZ [phone] [place] [address] * Albumin Creatinine Ratio, Urine (05/20/2021 9:36 AM [facility]) Albumin Ur <12.0 mg/L [facility] Comment: Interpretive Data No reference range established. Current interpretive data was last revised 2018. Creatinine Ur 47.6 mg/dL [facility] Comment: Interpretive Data No reference range established. Current interpretive data was last revised 2018. Albumin Creatinine Ratio, Ur <25 1 - 29 mg/g [facility] Urine 05/20/2021 9:36 AM [facility] 05/20/2021 7:41 PM [facility] Result [facility] Simon Lundberg MD LAB URINE ORDERABLES Final Result Performing Organization Address [facility] Co de Phone Number [facility] [id number] [place] [address] * (ABNORMAL) Hemoglobin A1c (05/20/2021 9:36 AM [facility]) Hgb A1C 9.8(H) 4.0 - 5.6 % [facility] Estimated Average Glucose 235 mg/dL [facility] Comment: The ADA recommends reporting an estimated Average Glucose (eAG) with all Hemoglobin A1c results using the equation derived from a study of 507 normal and diabetic adults. ??Minority populations were underrepresented and children were not included. ?? (Diabetes Care 31:2670-5240, 2008). ??The eAG is not equivalent to a fasting glucose. Blood 05/20/2021 9:36 AM [facility] 05/20/2021 7:41 PM [facility] Simon Lundberg MD LAB BLOOD ORDERABLES Final Result Performing Organization Address City/[facility] Co de Phone Number [facility] [phone] [facility] [place] [address] documented in this encounter Visit Diagnoses Diagnosis Diabetic neuropathy associated with type 2 diabetes mellitus (CMS/HCC) (HCC) Vitamin D deficiency Morbid obesity with body mass index (BMI) of 40.0 to 44.9 in adult (HCC) Hepatic cirrhosis, unspecified hepatic cirrhosis type, unspecified whether ascites present (HCC) Thrombocytopenia (HCC) Unspecified thrombocytopenia Essential hypertension Unspecified essential hypertension documented in this encounter Care Teams Nuclear Plant Instrument Technician Relationship Specialty Start Date End Date Simon Lundberg MD [address] [place] [address] PCP - General Family Medicine 05/20/21 08/22/21 [place] [id number] [facility] [address], [place] [address] Consulting Physician Endocrinology 05/20/21 [place] [id number] [facility] [address] [place] [address] Consulting Physician Internal Medicine 05/20/21 documented as of this encounter
--- OUTSIDE RECORDS SUMMARY | 2024-04-19 23:07 | XMS_ITS | Encounter Summary ---
Author Organization [facility] Healthcare Address [address] [place] [address] Care Team Providers Care Network Coordinator Name Role Phone Nacho Rodriguez MD Unavailable [phone] Elian Gross MD Unavailable Braydon Pavon Primary Care Provider [phone] Reason for Visit * Reason Comments Multiple Medical Complaints Encounter Details Date Type Department Care Team (Late st Contact Info) Description 11/23/2023 8:17 AM CDT - 11/23/2023 1:13 PM CDT Emergency [facility] Emergency Department [address] [place] [address] Stephen Buckner MD [address] [place] [address] Type 2 diabetes mellitus with diabetic neuropathy, with long-term current use of insulin (HCC) (Primary Dx); S/P TIPS (transjugular intrahepatic portosystemic shunt); Cirrhosis, nonalcoholic (CMS/HCC) (HCC) Discharge Disposition: Discharge to home or self care Social History Tobacco Use Types Packs/Day Years [...] making you feel afraid or unsafe? 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 Gender Identity Male 10/29/2020 12:37 PM CDT Sexual Orientation Straight 10/29/2020 12 :37 PM CDT documented as of this encounter Last Filed Vital Signs Vital Sign Reading Time Taken Comments Blood Pressure 131/67 11/23/2023 12:30 PM CDT Pulse 68 11/23/2023 12:30 PM CDT Temperature 36.5 ??C (97.7 ??F) 11/23/2023 7:53 AM CD T Respiratory Rate 17 11/23/2023 7:53 AM CDT Oxygen Saturation 96% 11/23/2023 12:30 PM CDT Inhaled Oxygen Concentration - - Weight 95.3 kg (210 lb) 11/23/2023 7:53 AM CDT Height 172.7 cm (5' 8 ) 11/23/2023 7:53 AM CDT Body Mass Index 31.93 11/23/2023 7:53 AM CDT documented in this encounter Discharge Instructions * Discharge Instructions* Charlee Holden MD - 11/23/2023 11:35 AM CDT You were seen in the [facility] emergency department today for burning particularly in your right toes andright-sided abdominal pain. We think that the burning sensation is most likely due to a condition called diabetic neuropathy, where your high blood sugars cause nerve damage, which causes burning, numbness, or tingling. Please follow up with your primary care doctor to try to get your blood sugars better controlled. You can also ask your pain management doctor if increasing your pregabalin would help. For your right-sided abdominal pain, you had an ultrasound of the liver which showed that your TIPSis still open. There were also no gallstones that could be causing your abdominal pain. Please follow up with your liver doctor. * Attachments The following attachments cannot be sent through Care Everywhere. 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 Use to check blood sugar. 1 each 2 Dexcom G6 Sensor device 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 Change sensor every 10 days. 3 each 3 2 Dexcom G6 Transmitter device 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 Change transmitter every 90 days. 1 each 2 famotidine (PEPCID) 20 mg tablet Take 1 tablet (20 mg total) by mouth 2 (two) times a day 4 HumaLOG 100 unit/mL pen for injection 3 times daily (before meals). 3 HUMULIN R U-500, CONC, KWIKPEN 500 unit/mL (3 mL) CONCENTRATED injection 8 hydroCHLOROthiazide (HYDRODIURIL) 25 mg tablet Take 1 tablet (25 mg total) by mouth daily lactulose solution 10 gram/15mL TAKE 30MLS BY MOUTH FOUR TIMES A DAY NEEDED 6 LANTUS 100 unit/mL (3 mL) pen for injection INJECT 35 UNITS SUBCUTANEOUSLY IN THE MORNING AND 50 UNITS IN THE EVENING 3 ONETOUCH ULTRA BLUE TEST STRIP strip 8 traZODone (DESYREL) 100 mg tablet Take 1 tablet (100 mg total) by mouth 2 (two) times a day 3 Trulicity 0.75 mg/0.5 mL pen injector Inject 0.5 mL (0.75 mg total) under the skin once a week 4 acetaminophen-codei ne (TYLENOL with CODEINE #3) 300-30 mg per tablet Take 1 tablet by mouth every 4 (four) hours as needed for pain 01/20/20 24 cyclobenzaprine (FLEXERIL) 5 mg tablet 1 01/20/20 24 omeprazole (PriLOSEC) 20 mg capsule 2 times daily. 6 01/20/20 24 ondansetron (ZOFRAN) 4 mg tablet take 1 tab every 8 hours prn nausea and vomitting 6 01/20/20 24 PROVENTIL HFA 90 mcg/actuation inhaler 8 01/20/20 24 rifAXIMin (XIFAXAN) 550 mg tabletIndications:H epatic Encephalopathy Take 1 tablet (550 mg total) by mouth 2 (two) times a day 60 tablet 11 1 01/20/20 24 traMADoL (ULTRAM) 50 mg tablet Take 1 tablet (50 mg total) by mouth every 8 (eight) hours as needed for pain 45 tablet 2 01/20/20 24 Victoza 3-Anatoliy 0.6 mg/0.1 mL (18 mg/3 mL) injection INJECT 1.8 MG UNDER THE SKIN DAILY 9 mL 1 2 01/20/20 24 documented as of this encounter Discharge Disposition Disposition Code Departure Means Destination Comment s Discharge to home or self care documented in this encounter ED Notes * Leila Cavanaugh RN - 11/23/2023 11:50 AM CDT Bed: ED1-11 Expected date: Expected time: Means of arrival: Comments: - Leila Vicente RN 11/23/23 0 * Charlee Holden MD - 11/23/2023 8:21 AM CDT HPI Chief Complaint Patient presents with Multiple Medical Complaints HPI 53 M with history of BLAND cirrhosis (c/b esophageal varices, s/p TIPS), uncontrolled T2DM, presenting with a couple week history of generalized whole body burning sensation that is worst in the middle 3 right toes and right abdomen, as well as concern that his TIPS is malfunctioning. He came to theED today because the burning in his toes kept him up all night. For the whole body burning sensation, this has occurred for a few weeks. It is intermittent and worse at night. He reports that it is a 5-6/10 at worst, and worst in the middle 3 toes of the right foot as well as in the right abdomen particularly in the inguinal area. He is currently taking home hydrocodone (prescribed for spinal stenosis) and pregabalin, which helps only when he takes both together. No associated weakness. Most likely diabetic neuropathy. Given the localization of his pain in the right toes and reported pain out of proportion to exam, potentially an early Shingles infection,though no vesicles or other rashes noted on foot. In additional to the burning sensation, he reports a sharp, intermittent RUQ pain. No n/v/d and he has been eating and drinking without issue. He is concerned about his liver because he had TIPS in the past and was told that he had backup of his TIPS on recent US, and has not been able to get in contact with his GI. US TIPS 07/24/[address] Last CT A/P 05/20/23 showed cirrhosis with small hypoattenuating lesions, no hepatomegaly; distended gallbladder with cholelithiasis. Patient History: Patient Active Problem List Diagnosis Date Noted Bacterial endocarditis 05/14/2020 Other chest pain 05/14/2020 Dyspnea on exertion 05/14/2020 Morbid obesity with body mass index (BMI) of 40.0 to 44.9 in adult (HCC) 05/14/2020 Encounter for medical examination to establish care 05/20/2021 Screen for colon cancer 03/01/2021 Diabetic neuropathy associated with type 2 diabetes mellitus (CMS/HCC) (HCC) 10/29/2020 Vitamin D deficiency 10/29/2020 Lumbar degenerative disc disease 05/23/2019 Biliary colic 07/21/2018 Essential hypertension 07/21/2018 Gallstones 07/21/2018 BLAND (nonalcoholic steatohepatitis) 07/21/2018 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-sided sciatica 07/19/2018 Sacroiliac joint dysfunction of both sides 07/19/2018 S/P TIPS (transjugular intrahepatic portosystemic shunt) 06/08/2018 Abnormal finding on liver function 05/24/2018 Nausea vomiting and diarrhea 02/02/2018 High risk medication use 02/02/2018 Diabetes mellitus, type 2 (HCC) 02/02/2018 RUQ pain 10/11/2017 Morbid obesity (HCC) 12/09/2016 TRACY (obstructive sleep apnea) 09/14/2016 Thrombocytopenia (HCC) 09/14/2016 Esophageal varices (HCC) 09/09/2016 Hepatic encephalopathy (HCC) 09/09/2016 History of upper gastrointestinal hemorrhage 09/10/2015 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 dated 10/02/15 Past Surgical History: Procedure Laterality Date COLONOSCOPY ESOPHAGEAL VARICE LIGATION TIPS INITIAL N/A 11/23/2015 TIPS REVISION N/A 01/10/2021 Family History Problem Relation Age of Onset Ovarian cancer Mother Throat cancer Father Breast cancer Other Family history of malignant neoplasm of breast - Relation: Grandmother (Added by TW Conv) Stomach cancer Other Family history of malignant neoplasm of stomach - Relation: Grandmother (Added by TW Conv) Heart attack Other Family history of myocardial infarction - Relation: Grandmother (Added by TW Conv) Hypertension Other Family history of hypertension - Relation: Grandmother (Added by TW Conv) Social History Tobacco Use Smoking status: Former Current packs/day: 0.00 Types: Cigarettes Quit date: 2002 Years since quittin.5 Smokeless tobacco: Never Vaping Use Vaping status: Never Used Substance and Sexual Activity Alcohol use: No Drug use: Not Currently Types: Cocaine, Methamphetamines Comment: quit 1997 Sexual activity: Defer Social History Social History Narrative Not on file Review of Systems Review of Systems Constitutional: Negative for appetite change and fever. Cardiovascular: Negative for chest pain. Gastrointestinal: Positive for abdominal pain. Negative for constipation, diarrhea, nausea and vomiting. Physical Exam ED Triage Vitals [11/23/23 0753] Temp Pulse Resp BP SpO2 36.5 ??C (97.7 ??F) 75 17 170/80 95 % Temp src Heart Rate Source Patient Position BP Location FiO2 (%) Oral -- -- -- -- Height Height Method Weight Weight Method 1.727 m (5' 8 ) Stated 95.3 kg (210 lb) -- Physical Exam Constitutional: General: He is not in acute distress. HENT: Head: Normocephalic and atraumatic. Eyes: Extraocular Movements: Extraocular movements intact. Cardiovascular: Rate and Rhythm: Normal rate and regular rhythm. Pulses: Normal pulses. Heart sounds: No murmur heard. No friction rub. Pulmonary: Effort: Pulmonary effort is normal. No respiratory distress. Breath sounds: Normal breath sounds. No wheezing or rhonchi. Abdominal: General: Bowel sounds are normal. There is no distension. Palpations: Abdomen is soft. Tenderness: There is abdominal tenderness. There is no guarding or rebound. Skin: General: Skin is warm and dry. Findings: No rash. Neurological: General: No focal deficit present. Mental Status: He is alert and oriented to person, place, and time. Psychiatric: Mood and Affect: Mood normal. Behavior: Behavior normal. [facility] Medical Decision Making Amount and/or Complexity of Data Reviewed Labs: ordered. Decision-making details documented in ED Course. Radiology: ordered. Decision-making details documented in ED Course. Risk Prescription drug management. Attending Summary of Care 53-year-old male history of insulin-dependent diabetes mellitus, cirrhosis of the liver status posttips procedure in 2020 and 2015 of the external facilities presents with right lower extremity burning paresthesias to the toes as well as concerned about requiring ongoing liver management. He was somewhat frustrated in terms of his ability to follow up with his [facility] bottom liner at [facility] but does have access to a liver doctor at [facility] in [place]. On exam he is nonicteric. Abdomen is soft nontender. Right lower extremity demonstrates no dermal abnormality. He likely has some form of neuropathy with hemoglobin A1cs previously recorded in the region. He does require ongoing liver care. We will obtain laboratory studies to assure there is no significant abnormalities of his bilirubin. Ongoing outpatient care seems warranted. I have seen and examined the patient on 11/23/2023. I agree with the findings and plan of care as documented in the resident's note. ED Course as of 11/23/23 1527 Time: 11/22 904 Value: Ketones, Blood, POC: 0.2 Comment: (Reviewed) By: Charlee Holden MD Time: 11/22 905 Value: POCT ketone, blood: Ketones, Blood, POC 0.2 Comment: POCT glucose 360 but ketones WNL. He reports home fasting BG usually in 300s and did not take his AM insulin. Last A1c in our system 9.8%, will add on A1c. By: Charlee Holden MD Time: 11/22 908 Value: WBC(!): 3.3 Comment: WBC 3.3 with lymphopenia. This has been chronic since 2018. By: Charlee Holden MD Time: 11/23 931 Value: Bilirubin, total(!): 3.0 Comment: Biliary pathology may correspond to his RUQ pain. Ordering HFP to fractionate bili and US RUQ (he reports whole body edema in response to IV contrast) By: Charlee Holden MD Time: 11/23 935 Value: Plt(!): 81 Comment: Thombocytopenia chronic since at least 2016, in the setting of cirrhosis. No signs of bleeding. By: Charlee Holden MD Time: 11/22 941 Comment: On further review in Care Everywhere, Tbili has been elevated >3 since 05/2023. May be more likely to represent hepatic congestion By: Charlee Holden MD Time: 11/22 956 Value: Hgb A1C(!): 10.0 Comment: Needs follow up outpatient for better BG control. Giving his AM Humalog (he reports that he takes 14U + SSI if he eats, but he has not eaten yet today) By: Charlee Holden MD Time: 11/22 1009 Comment: Per nurse, patient reports that his CGM shows BG decreasing in the 300s and has concern about receiving full AM Humalog dose. Will dose-reduce by 50% to 7U and continue to monitor, particularly as he is now NPO for US liver By: Charlee Holden MD Time: 11/22 1025 Value: Bilirubin, direct: 0.3 Comment: Predominantly unconjugated hyperbilirubinemia. Not anemic (Hgb 15.3), though Hgb 16.2 at recent ED visit 11/13/23. Will check LDH and haptoglobin to ensure that he isn't hemolyzing By: Charlee Holden MD Time: 11/22 1146 Value: US Liver W Complete Doppler (C) Comment: Prelim read of US liver shows patent TIPS and no evidence of cholecystitis or gallstones/sludge By: Charlee Holden MD Time: 11/22 1300 Comment: Discussed results of US with patient. He has follow up with [facility] in December and feels ready for discharge. 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 I agree with the findings and plan of care as documented in the resident's note. * Katty Garcia RN - 11/23/2023 8:17 AM CDT Bed: ED1-11 Expected date: Expected time: Means of arrival: Car Comments: Katty Garcia RN 11/23/23 0817 * Latoya Ramirez RN - 11/23/2023 7:54 AM CDT Pt states his skin feels like it is burning and having toe pain in the middle three toes, having problem with his liver (states it is backing up ), had TIPS done in the past. Pt is hyperglycemic as well. Pt does not drink or smoke. Pt has some RLQ pain too. Pt denies dizziness or sob or cp. documented in this encounter Plan of Treatment Pending Results Name Type Priority Associated Diagnoses Date /Time Hemoglobin A1c Lab STAT 11/23/2023 8:40 AM CDT Hepatic function panel Lab STAT 8:40 AM CDT Lactate dehydrogenase (LD) Lab STAT 11/23/2023 8:40 AM CDT Haptoglobin Lab STAT 11/23/2023 8: 40 AM CDT Scheduled Orders Name Type Priority Associated Diagnoses Orde r Schedule Hemoglobin A1c Lab STAT Once for 1 Occurrences starting 11/23/2023 until 11/23/2023 Hepatic function panel Lab STAT On ce for 1 Occurrences starting 11/23/2023 until 11/23/2023 Lactate dehydrogenase (LD) Lab STAT Once for 1 Occurrences starting 11/23/2023 until 11/23/2023 Haptoglobin Lab STAT Once for 1 Oc currences starting 11/23/2023 until 11/23/2023 documented as of this encounter Procedures Procedure Name Priority Date/Time Associated Diagnosis Comments POCT GLUCOSE DEVICE Routine 11/23/2023 1 2:08 PM CDT US LIVER W COMPLETE DOPPLER ED 11/23/2023 11:16 AM CDT POCT KETONE, BLOOD Routine 11/23/2023 8: 53 AM CDT EGFR STAT 11/23/2023 8:40 AM CDT DIFFERENTIAL AUTO STAT 11/23/2023 8:4 0 AM CDT CBC WITH AUTO DIFFERENTIAL STAT 11/23/2023 8:40 AM CDT LACTATE DEHYDROGENASE STAT 11/23/2023 8:40 AM CDT HEMOGLOBIN A1C STAT 11/23/2023 8:40 AM CDT HAPTOGLOBIN STAT 11/23/2023 8:40 AM CDT HEPATIC FUNCTION PANEL STAT 8:40 AM CDT COMPREHENSIVE METABOLIC PANEL STAT 11/23/2023 8:40 AM CDT POCT GLUCOSE DEVICE Routine 11/23/2023 8 :36 AM CDT POCT GLUCOSE DEVICE Routine 11/23/2023 8 :26 AM CDT POCT GLUCOSE DEVICE Routine 11/23/2023 8 :02 AM CDT documented in this encounter Results * (ABNORMAL) POCT glucose (11/23/2023 12:08 PM CDT) Glucose, POC 325(H) 70 - 199 mg/dL Comment:Glu2: RN/MD Notified Glucose comment 1 Glu2: RN/ Notified MOHINDER MICHEL Blood 11/23/2023 12:0 8 PM CDT 11/23/2023 12:08 PM CDT us Stephen Buckner MD LAB POCT ORDERABLES - D EVICE Final Result [facility] Department [place] [address] * US Liver W Complete Doppler (C) (11/23/2023 11:16 AM CDT) Anatomical Region Laterality Modality Abdomen N/A Ultrasound 11/23/2023 11:3 3 AM CDT Impressions 11/23/2023 6:27 PM CDT 1. Sonographic findings of cirrhosis. ??No ascites. 2. Patent TIPS with antegrade flow and normal velocities. ??Of note, the main portal vein velocity is mildly decreased. ??The right portal vein was not seen and flow in the left portal vein was helical. Dictated by: Saeid Ramírez MD The radiology attending physician has personally reviewed this study, and had reviewed and/or edited this written report and agrees with it. Electronically signed by: Emma Jhonson M.D. Narrative 11/23/2023 6:27 PM CDT EXAMINATION: 1. LIVER SONOGRAM 2. LIVER DOPPLER -TIPS HISTORY: ??53-year-old man with BLAND cirrhosis (with TIPS for management of refractory hematemesis despite prior banding) and right upper quadrant pain. Status post TIPS reversal on 01/10/2021. COMPARISON: ??Multiple priors, most recently 10/08/2020 FINDINGS: ?? RIGHT UPPER QUADRANT SONOGRAM: Liver: The liver is normal in size. The echotexture is coarse. The echogenicity is normal. There is surface nodularity. No focal solid lesions are visualized. ?? Gallbladder: The gallbladder is decompressed. There are no stones or sludge within the gallbladder. There is mild gallbladder wall thickening, likely secondary to 3rd spacing. Bile Duct: There is no intrahepatic bile duct dilatation. The diameter of the common duct is 2 mm in the proximal segment and 5 mm in the mid segment and 1 mm in the distal segment. Right Kidney: There is no hydronephrosis in the visualized portions of the right kidney. TIPS DOPPLER: Color Doppler and spectral analysis were used to evaluate the stent graft and hepatic vasculature. ?? Portal veins: Main portal vein velocity measures 27 cm/second which is mildly decreased. The right portal vein was not definitely seen. Flow is helical in the left portal vein branches. ?? TIPS stent: Maximum velocity within the stent graft occurs in the proximal portion and measures 150.8 cm/sec (previously measured 113 cm/sec on 02/02/18). ??Minimum velocity occurs within the distal portion of the stent and measures 107.7 cm/sec (previously measured 109 cm/sec in the mid portion on 02/02/2018).There is no evidence of stenosis. Draining hepatic vein: The draining hepatic vein is suboptimally assessed but appears patent with antegrade flow. Collaterals: There is no evidence of collaterals. Ascites: There is no ascites. ?? Procedure Note Emma Johnson MD - 11/23/2023 EXAMINATION: 1. LIVER SONOGRAM 2. LIVER DOPPLER -TIPS HISTORY: 53-year-old man with BLAND cirrhosis (with TIPS for management of refractory hematemesis despite prior banding) and right upper quadrant pain. Status post TIPS reversal on 01/10/2021. COMPARISON: Multiple priors, most recently 10/08/2020 FINDINGS: RIGHT UPPER QUADRANT SONOGRAM: Liver: The liver is normal in size. The echotexture is coarse. The echogenicity is normal. There is surface nodularity. No focal solid lesions are visualized. Gallbladder: The gallbladder is decompressed. There are no stones or sludge within the gallbladder. There is mild gallbladder wall thickening, likely secondary to 3rd spacing. Bile Duct: There is no intrahepatic bile duct dilatation. The diameter of the common duct is 2 mm in the proximal segment and 5 mm in the mid segment and 1 mm in the distal segment. Right Kidney: There is no hydronephrosis in the visualized portions of the right kidney. TIPS DOPPLER: Color Doppler and spectral analysis were used to evaluate the stent graft and hepatic vasculature. Portal veins: Main portal vein velocity measures 27 cm/second which is mildly decreased. The right portal vein was not definitely seen. Flow is helical in the left portal vein branches. TIPS stent: Maximum velocity within the stent graft occurs in the proximal portion and measures 150.8 cm/sec (previously measured 113 cm/sec on 02/02/18). Minimum velocity occurs within the distal portion of the stent and measures 107.7 cm/sec (previously measured 109 cm/sec in the mid portion on 02/02/2018).There is no evidence of stenosis. Draining hepatic vein: The draining hepatic vein is suboptimally assessed but appears patent with antegrade flow. Collaterals: There is no evidence of collaterals. Ascites: There is no ascites. IMPRESSION: 1. Sonographic findings of cirrhosis. No ascites. 2. Patent TIPS with antegrade flow and normal velocities. Of note, the main portal vein velocity is mildly decreased. The right portal vein was not seen and flow in the left portal vein was helical. Dictated by: Seaid Ramírez MD The radiology attending physician has personally reviewed this study, and had reviewed and/or edited this written report and agrees with it. Electronically signed by: Emma Johnson M.D. us Charlee Holden MD IMG US PROCEDURES Final Resu lt * POCT ketone, blood (11/23/2023 8:53 AM CDT) [facility] Ketones, Blood, POC 0.2 0.0 - 0.5 mmol/L Blood 11/23/2023 8:53 AM CDT 11/23/2023 8:53 AM CDT us Notinfile Unknown LAB POCT ORDERABLES - DEVICE F inal Result [facility] Department [place] [address] * (ABNORMAL) Lactate dehydrogenase (LD) (11/23/2023 8:40 AM CDT) Lactate dehydrogenase (LDH) 409(H) 100 - 250 Units/L Blood 11/23/2023 8:40 AM CDT 11/23/2023 8:52 AM CDT Stephen Buckner MD LAB BLOOD ORDERABLES Fi nal Result Performing Organization Address [facility] Co de Phone Number [facility] Department [place] [address] * (ABNORMAL) Haptoglobin (11/23/2023 8:40 AM CDT) [facility] Haptoglobin <10.0(L) 30.0 - 200.0 mg/dL Blood 11/23/2023 8:40 AM CDT 11/23/2023 8:52 AM CDT Stephen Buckner MD LAB BLOOD ORDERABLES Fi nal Result Performing Organization Address [facility] de Phone Number [facility] Department [place] [address] * (ABNORMAL) Hepatic function panel (11/23/2023 8:40 AM CDT) Pathologist [facility] Bilirubin, total 3.0(H) 0.1 - 1.2 mg/dL Bilirubin, direct 0.3 0.1 - 0.3 mg/dL [facility] Protein, pl 7.4 6.5 - 8.5 g/dL [facility] Albumin 4.0 3.5 - 5.0 g/dL [facility] Alk phos 82 40 - 130 Units/L [facility] ALT 18 7 - 55 Units/L [facility] AST 30 10 - 50 Units/L [facility] [facility] Blood 11/23/2023 8:40 AM CDT 11/23/2023 8:52 AM CDT Stephen Buckner MD LAB BLOOD ORDERABLES Fi nal Result Performing Organization Address [facility]/ZIP Co de Phone Number [facility] Department [place] [address] * (ABNORMAL) Hemoglobin A1c (11/23/2023 8:40 AM CDT) [facility] Hgb A1C 10.0(H) 4.0 - 5.6 % Estimated Average Glucose 240 mg/dL [facility] Comment: The ADA recommends reporting [...] ORDERABLES Fi nal Result Performing Organization Address City/State/[facility] Co de Phone Number [facility] Department [place] [address] * eGFR (11/23/2023 8:40 AM CDT) [facility] eGFR >90 >=60 mL/min/1. 73 m2 Comment: [...] interpretive data was last reviewed 2021. Blood 11/23/2023 8:40 AM CDT 11/23/2023 8:52 AM CDT us Stephen Buckner MD LAB BLOOD ORDERABLES Fi nal Result [facility] One [facility] Department [place] [address] * (ABNORMAL) Differential, auto (11/23/2023 8:40 AM CDT) Neutrophil abs 2.0 1.5 - 6.5 K/cumm Imm gran abs 0.0 0.0 - 0.1 K/cumm [facility] Lymphocyte abs 0.7(L) 0.8 - 3.3 K/cumm [facility] Monocyte abs 0.4 0.2 - 0.8 K/cumm [facility] Eosinophil abs 0.2 0.0 - 0.5 K/cumm [facility] Basophil abs 0.0 0.0 - 0.1 K/cumm [facility] Neutrophil pct 59.1 % [facility] Comment: Interpretive Data Percent cell count reference ranges are not reported, since discordance with absolute values may lead to misinterpretation of CBC data. Current Interpretive Data was last revised on 2017. Imm gran pct 0.6 % [facility] Comment: Interpretive Data Percent cell count reference ranges are not reported, since discordance with absolute values may lead to misinterpretation of CBC data. Current Interpretive Data was last revised on 2017. Lymphocyte pct 21.5 % [facility] Comment: Interpretive Data Percent cell count reference ranges are not reported, since discordance with absolute values may lead to misinterpretation of CBC data. Current Interpretive Data was last revised on 2017. Monocyte pct 11.8 % [facility] Comment: Interpretive Data Percent cell count reference ranges are not reported, since discordance with absolute values may lead to misinterpretation of CBC data. Current Interpretive Data was last revised on 2017. Eosinophil pct 5.8 % [facility] Comment: Interpretive Data Percent cell count reference ranges are not reported, since discordance with absolute values may lead to misinterpretation of CBC data. Current Interpretive Data was last revised on 2017. Basophil pct 1.2 % [facility] Comment: Interpretive Data Percent cell count reference ranges are not reported, since discordance with absolute values may lead to misinterpretation of CBC data. Current Interpretive Data was last revised on 2017. Blood 11/23/2023 8:40 AM CDT 11/23/2023 8:52 AM CDT Stephen Buckner MD LAB BLOOD ORDERABLES nal Result [facility] Department [place] [address] * (ABNORMAL) CBC with auto differential (11/23/2023 8:40 AM CDT) WBC 3.3(L) 3.8 - 9.9 K/cumm Hgb 15.3 13.0 - 17.5 g/dL [facility] Hct 43.4 38.9 - 50.3 % [facility] Plt 81(L) 150 - 400 K/cumm [facility] MPV 10.4 9.1 - 12.3 fL [facility] RBC 5.56 4.30 - 5.80 M/cumm [facility] MCV 78.1(L) 81.3 - 96.4 fL [facility] MCH 27.5 27.1 - 33.3 pg [facility] MCHC 35.3 32.3 - 35.7 g/dL [facility] RDW CV 18.2(H) 11.1 - 14.9 % [facility] RDW SD 47.4 35.7 - 48.1 fL [facility] NRBC abs 0.00 0.00 - 0.01 K/cumm [facility] Blood 11/23/2023 8:40 AM CDT 11/23/2023 8:52 AM CDT us Stephen Buckner MD LAB BLOOD ORDERABLES Fi nal Result [facility] Department [place] [address] * (ABNORMAL) Comprehensive metabolic panel (11/23/2023 8:40 AM CDT) Sodium 137 135 - 145 mmol/L Potassium, pl 4.2 3.3 - 4.9 mmol/L [facility] Chloride 102 97 - 110 mmol/L [facility] CO2 25 22 - 32 mmol/L [facility] Anion gap 10 2 - 15 mmol/L [facility] BUN 14 6 - 25 mg/dL [facility] Creatinine 0.78(L) 0.80 - 1.30 mg/dL [facility] Glucose 379(H) 70 - 199 mg/dL [facility] Comment: Interpretive Data Fasting glucose >/= 126 [...] classification and Diagnosis of Diabetes Diabetes Care 2021; 46: S19-S40. Current interpretive data was last revised 2022. Calcium 9.7 8.5 - 10.3 mg/dL [facility] Bilirubin, total 3.0(H) 0.1 - 1.2 mg/dL [facility] Protein, pl 7.4 6.5 - 8.5 g/dL [facility] Albumin 4.0 3.5 - 5.0 g/dL [facility] Alk phos 82 40 - 130 Units/L [facility] ALT 18 7 - 55 Units/L [facility] AST 30 10 - 50 Units/L [facility] Blood 11/23/2023 8:40 AM CDT 11/23/2023 8:52 AM CDT us Stephen Buckner MD LAB BLOOD ORDERABLES Fi nal Result Performing Organization Address [facility] de Phone Number [facility] Department [place] [address] * (ABNORMAL) POCT glucose (11/23/2023 8:36 AM CDT) Glucose, POC 360(H) 70 - 199 mg/dL Blood 11/23/2023 8:36 AM CDT 11/23/2023 8:36 AM CDT us Notinfile Unknown LAB POCT ORDERABLES - DEVICE F inal Result Performing Organization Address [facility] de Phone Number [facility] Department [place] [address] * (ABNORMAL) POCT glucose (11/23/2023 8:26 AM CDT) Glucose, POC 434(H) 70 - 199 mg/dL Comment:Glu2: RN/MD Notified Glucose comment 1 Glu2: RN/MD Notified [facility] Blood 11/23/2023 8:26 AM CDT 11/23/2023 8:26 AM CDT us Notinfile Unknown LAB POCT ORDERABLES - DEVICE F inal Result Performing Organization Address [facility] de Phone Number [facility] [place] [address] * (ABNORMAL) POCT glucose (11/23/2023 8:02 AM CDT) Glucose, POC 361(H) 70 - 199 mg/dL Blood 11/23/2023 8:02 AM CDT 11/23/2023 8:02 AM CDT us Notinfile Unknown LAB POCT ORDERABLES - DEVICE F inal Result MOHINDER MICHEL [facility] Department [place] [address] documented in this encounter Visit Diagnoses Diagnosis Type 2 diabetes mellitus with diabetic neuropathy, with long-term current use of insulin (HCC)- Primary S/P TIPS (transjugular intrahepatic portosystemic shunt) Other postprocedural status Cirrhosis, nonalcoholic (CMS/HCC) (HCC) documented in this encounter Administered Medications Inactive Administered Medications - up to 3 most recent administrations Medication Order MAR Action Action Date Dose Rate Site ibuprofen (ADVIL,MOTRIN) tablet 400 mg 400 mg, oral, Once, On Thu11/23/23 at 0901, For 1 dose Given 11/23/2023 9:04 AM CDT 400 mg ondansetron ODT (ZOFRAN-ODT) disintegrating tablet 4 mg 4 mg, oral, Once, On Thu11/23/23 at 0901, For 1 dose Given 11/23/2023 9:04 AM CDT 4 mg documented in this encounter Active and Recently Administered Medications Times are shown in CDT. Scheduled Medication Order 11/21/2023 11/22/2023 11/23/2023 ibuprofen (ADVIL,MOTRIN) tablet 400 mg (COMPLETED) 400 mg, oral, Once, On Thu11/23/23 at 0901, For 1 dose 903 (Given - Provid er: Chantelle See RN) insulin lispro (HumaLOG, ADMELOG) 100 unit/mL injection 7 Units 7 Units, subcutaneous, Once, On Thu11/23/23 at 1010, For 1 dose 1014 (Not Given - Pr ovider: Chantelle See RN - Reason: Patient/family refused) ondansetron ODT (ZOFRAN-ODT) disintegrating tablet 4 mg (COMPLETED) 4 mg, oral, Once, On Thu11/23/23 at 0901, For 1 dose 0904 (Given - Provid er: Chantelle See RN) documented in this encounter Orders Medications Ordered That Ronnie ht Not Have Been Administered Count Last Ordered Date First Ordered Date insulin lispro (HumaLOG, ADM ELOG) 100 unit/mL injection 14 Units 1 11/23/2023 insulin lispro (HumaLOG, ADM ELOG) 100 unit/mL injection 7 Units 1 11/23/2023 Lab Orders Without Results Count Last Ordered D ate First Ordered Date HAPTOGLOBIN 1 11/23/2023 HEMOGLOBIN A1C 1 11/23/2023 HEPATIC FUNCTION PANEL 1 11/23/2023 LACTATE DEHYDROGENASE 1 11/23/2023 POCT GLUCOSE DEVICE 2 11/23/2023 POCT KETONE, BLOOD 1 11/23/2023 documented in this encounter Care Teams Network Coordinator Relationship Specialty Start Date End Date Braydon Pavon PA [address] [place] [address] PCP - General 08/23/21 [place] [address] [address] Consulting Physician Endocrinology 05/20/21 [place] [address] [address] [place] [address] Consulting Physician Internal Medicine 05/20/21 documented as of this encounter
--- OUTSIDE RECORDS SUMMARY | 2024-04-19 23:07 | XMS_ITS | Encounter Summary ---
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 Pharmacy was concerned about pt taking Prednisone r/t his diabetes which pt says is the reason he is a diabetic from taking Prednisone in past. Dr. Archuleta informed of concern and will use CO2 procedure in place of contrast. documented in this encounter Plan of Treatment Not on file documented as of this encounter Visit Diagnoses Not on filedocumented in this encounter Care Teams Motor Rebuilder Relationship Specialty Start Date End Date Braydon Pavon PA [address] [place] [address] PCP - General Family Practice 05/09/20 05/19/21 Nikolay Lancaster MD [address] [place] [address] 05/09/20 05/19/21 documented as of this encounter
--- OUTSIDE RECORDS SUMMARY | 2024-04-19 23:07 | XMS_ITS | Encounter Summary ---
Author Organization [facility] Group Address [address] [place] [address] Care Team Providers Care Healthcare Market Consultant Name Role Phone Simon Lundberg MD Primary Care Provider [phone] Nacho Rodriguez MD Unavailable [phone] Elian Gross MD Unavailable Reason for Visit * Reason Onset Date Comments Forms/questionnaires 05/31/2021 ADS Encounter Details Date Type Department Care Team (Late st Contact Info) Description 05/31/2021 Telephone [facility] [address] [place] [address] [place] [address] [facility] [address] [place] [address] Forms/questionnaires (ADS) Social History Tobacco [...] on file 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 Lindo's desk for signature AL ASSAULT NURSE documented in this encounter Plan of Treatment Not on file documented as of this encounter Visit Diagnoses Not on filedocumented in this encounter Care Teams Healthcare Market Consultant Relationship Specialty Start Date End Date Simon Lundberg MD [address] [place] [address] PCP - General Family Medicine 05/20/21 08/22/21 [place] [address] [address] Consulting Physician Endocrinology 05/20/21 [place] [address] [address] Consulting Physician Internal Medicine 05/20/21 documented as of this encounter
--- OUTSIDE RECORDS SUMMARY | 2024-04-19 23:07 | XMS_ITS | Encounter Summary ---
Author Organization [facility] Healthcare Address [address] [place] [address] Care Team Providers Care Block Hand Name Role Phone Nacho Rodriguez MD Unavailable [phone] Elian Gross MD Unavailable Braydon Pavon Primary Care Provider [phone] Encounter Details Date Type Department Care Team (Late st Contact Info) Description 08/23/2021 6:47 AM CDT - 08/23/2021 8:35 AM CDT Hospital Encounter [facility] [address] [place] [address] Elian Gross MD [address] [place], [place] [address] Discharge Disposition: Discharge to home or self [...] on file 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 Gender Identity Male 10/29/2020 12:37 PM CDT [...] 7:00 AM CDT documented in this encounter Discharge Diagnoses Diagnosis Encounter for screening for malignant neoplasm of colon - ENCOUNTER FOR SCREENING FOR MALIGNANT NEOPLASM OF COLON Procedure and treatment not carried out because of other contraindication - PROCEDURE AND TREATMENT NOT CARRIED OUT BECAUSE OF OTHER CONTRAINDICATION documented in this encounter Medications at Time of Discharge ALPRAZolam (XANAX) 1 mg tablet Take 1 tablet (1 mg total) by mouth 3 (three) times a day as needed for anxiety 03/29/2021 BD Ultra-Fine Short Pen Needle 31 gauge x 5/16 needle Inject 1 each under the skin daily To be used with the victoza 100 each 3 11/07/2020 Dexcom G6 Melter Helper misc 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 Use [...] the skin every 7 days Sample Lot [id number] Exp 03/03/2023 x 2 pens 2 pen [...] every 4(four) hours as needed for pain ProviderTyler MD BD Ultra-Fine Short Pen Needle 31 gauge x 5/16 needle Inject 1 each under the skin daily To be used with the victoza 11/07/20 Nacho Rodriguez MD cyclobenzaprine (FLEXERIL) 5 mg tablet 11/09/20 ProviderTyler MD Dexcom G6 Melter Helper misc 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 Use [...] the skin every 7 days Sample Lot [id number] Exp 03/03/2023 x 2 pens 11/07/20 Nacho [...] re:Bowel prep When you arrive come to [facility] hospital entrance. As you enter [...] and we do wear masks If your tow car driver chooses to come into the building, they will be required to wear a mask If your tow car driver chooses not to come in or will be picking you up after your procedure with anesthesia we will call your tow car driver to confirm your ride home. documented in this encounter Plan of Treatment Not on file documented as of this encounter Procedures Procedure Name Priority Date/Time Associated Diagnosis Comments POCT GLUCOSE DEVICE Routine 08/23/2021 8 :18 AM CDT POCT GLUCOSE DEVICE Routine 08/23/2021 7 :32 AM CDT documented in this encounter Results * (ABNORMAL) POCT glucose (08/23/2021 8:18 AM CDT) [facility] Signature Glucose, POC 298(H) 70 - 199 mg/dL [facility] Comment: Interpretive Data Glucose is assumed to be non-fasting. Fasting Glucose reference ranges are: 0 - 150 years: ??70 mg/dL - 99 mg/dL Current interpretive data was last revised on 2014. POC Performer [id number] [facility] POC Device Number [id number] [facility] Blood 08/23/2021 8:18 AM CDT 08/23/2021 8:18 AM CDT Elian Draper MD LAB POCT ORD ERABLES - DEVICE Final Result Performing Organization Address [facility] Phone Number [facility] [address] [facility] [place] [address] * (ABNORMAL) POCT glucose (08/23/2021 7:32 AM CDT) [facility] Glucose, POC 344(H) 70 - 199 mg/dL MOHINDER WARD Comment: Interpretive Data Glucose is assumed to be non-fasting. Fasting Glucose reference ranges are: 0 - 150 years: ??70 mg/dL - 99 mg/dL Current interpretive data was last revised on 2014. POC Performer [id number] [facility] POC Device Number [id number] [facility] Blood 08/23/2021 7:32 AM CDT 08/23/2021 7:32 AM CDT Elian Draper MD LAB POCT ORD ERABLES - DEVICE Final Result Performing Organization Address [facility] de Phone Number [facility] [address] [facility] [place] [address] documented in this encounter Visit Diagnoses Diagnosis [...] Thu08/23/21 at 0830, For 1 dose, Pre-Op 752 (Given - Provid er: Marina Mcconnell RN) insulin regular (HumuLIN R, NovoLIN R) 100 unit/mL injection 8 Units (COMPLETED)(Linked Group 1) 8 Units, intravenous, Once, On Thu08/23/21 at 0830, For 1 dose, Pre-Op 752 (Given - Provid er: Marina Mcconnell RN) metoclopramide (REGLAN) injection 10 mg (COMPLETED) 10 mg, intravenous, Administer over 1 Minutes, Once, On Thu08/23/21 at 0830, For 1 dose, Pre-Op 752 (Given - Provid er: Marina Mcconnell RN) [...] 08/23/2021 documented in this encounter Care Teams Block Hand Relationship Specialty Start Date End Date Braydon Pavon PA [address] [place] [address] PCP - General 08/23/21 [place] [address] [place] [address] Consulting Physician Endocrinology 05/20/21 [place] [address] [address] [facility] [address] [place] [address] Consulting Physician Internal Medicine 05/20/21 documented as of this encounter
--- OUTSIDE RECORDS SUMMARY | 2024-04-19 23:07 | XMS_ITS | Encounter Summary ---
Author Organization [facility] Address [address] [facility] [address] [facility] [address] [place] [address] Care Team Providers Care Historic Clothing And Costume Maker Name Role Phone Simon Lundberg MD Primary Care Provider [phone] Nacho Rodriguez MD Unavailable [phone] Elian Gross MD Unavailable Encounter Details Date Type Department Care Team (Late st Contact Info) Description 05/27/2021 Telephone [facility] Primary Care at [address] [address] Simon Lundberg MD [address] [place] [address] [address] [place] [address] Social History Tobacco Use Types [...] on file 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 CTORY CARRIER * Telephone Encounter - Ellen Jones - 05/28/2021 9:43 AM CST LVMTCB CTORY CARRIER * Telephone Encounter - Ellen Jones - 05/28/2021 9:15 AM CST No answer at phone number. Will call back today. CTORY CARRIER * Telephone Encounter - Simon Lundberg MD - 05/28/2021 8:35 AM DIRECTORY CARRIER Of course, we should have the official result in hand. But the verbally have conveyed it, so go ahead and let him know. Gwen needs to apologize to him for the delay CTORY CARRIER * Telephone Encounter - Ellen Jones - 05/28/2021 8:22 AM CST Patient is not aware that he is negative. I wanted to make sure we had to result first. I can call and let him know if you would like. CTORY CARRIER * Telephone Encounter - Simon Lundberg MD - 05/27/2021 3:27 PM DIRECTORY CARRIER Does he know it was negative? CTORY CARRIER * Telephone Encounter - Ellen Jones - 05/27/2021 9:36 AM CST Patient called wanting his PCR results. I informed him that we have not received the results from [facility]. He reports that he can not believe we do not have the results. I check with my lead PSR and she confirmed there was no results in the chart. I informed the patient I would call [facility] to get the results. He reports that it doesn't really matter now the so much time has past. I have called [facility] and spoke to Priya. She reports the test is negative and she will send the copy over to our office. CTORY CARRIER documented in this encounter Plan of Treatment Not on file documented as of this encounter Visit Diagnoses Not on filedocumented in this encounter Care Teams Historic Clothing And Costume Maker Relationship Specialty Start Date End Date Simon Lundberg MD [address] [place] [address] PCP - General Family Medicine 05/20/21 08/22/21 [place] [address] [address] Consulting Physician Endocrinology 05/20/21 [place] [address] [facility] [address] [address] Consulting Physician Internal Medicine 05/20/21 documented as of this encounter
--- OUTSIDE RECORDS SUMMARY | 2024-04-19 23:07 | XMS_ITS | Encounter Summary ---
Author Organization [facility] Address [address] [facility] [address] [place] [address] Care Team Providers Care Air Conditioning Unit Assembler Name Role Phone Simon Lundberg MD Primary Care Provider [phone] Nacho Rodriguez MD Unavailable [phone] Elian Gross MD Unavailable Encounter Details Date Type Department Care Team (Late st Contact Info) Description 05/20/2021 9:45 AM RN RENAL Lab [facility] Outpatient Lab at [address] [address] Encounter for medical examination to establish care; Diabetic neuropathy associated with type 2 diabetes mellitus (CMS/HCC) (HCC) Social History Tobacco Use Types Packs/Day [...] on file 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 Gender Identity Male 10/29/2020 12:37 PM CDT Sexual Orientation Straight 10/29/2020 12 :37 PM CDT documented as of this encounter Plan of Treatment Not on file documented as of this encounter Visit Diagnoses Diagnosis Encounter for medical examination to establish care Diabetic neuropathy associated with type 2 diabetes mellitus (CMS/HCC) (HCC) documented in this encounter Care Teams Air Conditioning Unit Assembler Relationship Specialty Start Date End Date Simon Lundberg MD [address] [place] [address] PCP - General Family Medicine 05/20/21 08/22/21 [place] [address] [address] Consulting Physician Endocrinology 05/20/21 [place] [address] [address] Consulting Physician Internal Medicine 05/20/21 documented as of this encounter
--- OUTSIDE RECORDS SUMMARY | 2024-04-19 23:07 | XMS_ITS | Encounter Summary ---
Author Organization [facility] Address [address] [place] [address] Care Team Providers Care Machine Puller Name Role Phone Simon Lundberg MD Primary Care Provider [phone] Nacho Rodriguez MD Unavailable [phone] Elian Gross MD Unavailable Encounter Details Date Type Department Care Team (Late st Contact Info) Description 08/21/2021 Telephone [facility] [place] [facility] [address] [place] [address] [place] [id number] [facility] [address] [place] [address] Social History Tobacco Use Types [...] on file 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 Sent one office note due to pt only seen once. documented in this encounter Plan of Treatment Not on file documented as of this encounter Visit Diagnoses Not on filedocumented in this encounter Care Teams Machine Puller Relationship Specialty Start Date End Date Simon Lundberg MD [address] [place] [address] PCP - General Family Medicine 05/20/21 08/22/21 [place] [id number] [id number] Consulting Physician Endocrinology 05/20/21 [place] [id number] [address] Consulting Physician Internal Medicine 05/20/21 documented as of this encounter
--- OUTSIDE RECORDS SUMMARY | 2024-04-19 23:07 | XMS_ITS | Encounter Summary ---
Author Organization [facility] Healthcare Address [address] [place] [address] Care Team Providers Care Mortgage Loan Reviewer Name Role Phone Nacho Rodriguez MD Unavailable [phone] Elian Gross MD Unavailable Braydon Pavon Primary Care Provider [phone] Reason for Visit * Reason Comments Abdominal Pain * Auth/Cert (Routine) Specialty Diagnoses / Procedures Referred By Contac t Referred To Contact Diagnoses RUQ abdominal pain Procedures NA Referral ID Status Reason Start Date Expiration Date Visits Re quested Visits Authorized [id number] 1 1 Encounter Details Date Type Department Care Team (Late st Contact Info) Description 01/19/2024 11:31 PM CDT - 01/20/2024 2:39 PM CDT Emergency [facility] Emergency Department [address] [place] [address] Giuseppe Pace MD [address] [place] [address] Ramírez Rae MD PhD [address] [place] [address] RUQ abdominal pain (Primary Dx); 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); Abnormal finding on liver function; S/P TIPS (transjugular intrahepatic portosystemic shunt) Discharge Disposition: Left Against Medical Advice Social [...] on file 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 [facility] for further evaluation and return to the ED if you feel your symptomsare worsening. 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 Use to [...] 500 unit/mL (3 mL) CONCENTRATED injection 8 hydroCHLOROthiazi de (HYDRODIURIL) 25 mg tablet Take 1 tablet (25 mg total) by mouth daily HYDROcodone-aceta minophen (NORCO) 10-325 mg per tablet Take 1 tablet by mouth every 6 (six) hours as needed hydrOXYzine (ATARAX) 25 mg tablet Take 1 tablet (25 mg total) by mouth 4 (four) times a day 4 lactulose solution 10 gram/15mL TAKE 30MLS BY MOUTH FOUR TIMES A DAY NEEDED 6 LANTUS 100 unit/mL (3 mL) pen for injection INJECT 35 UNITS SUBCUTANEOUSLY IN THE MORNING AND 50 UNITS IN THE EVENING 3 ONETOUCH ULTRA BLUE TEST STRIP strip 8 pregabalin (LYRICA) 200 mg capsule Take 1 capsule (200 mg total) by mouth 2 (two) times a day traZODone (DESYREL) 100 mg tablet Take 1 tablet (100 mg total) by mouth 2 (two) times a day 3 Trulicity 0.75 mg/0.5 mL pen injector Inject 0.5 mL (0.75 mg total) under the skin once a week 4 documented as of this encounter Discharge Disposition Disposition Code Departure Means Destination Comment s Left Against Medical Advice documented in this encounter ED Notes * Giuseppe Pace MD - 01/19/2024 11:56 PM CDT HPI Portions of the record may have been created with voice recognition software. Occasional wrong-wordor ???[id number]??? substitutions may have occurred due to the inherent limitations of voice recognition software. Read the chart carefully and recognize, using context, where substitutions have occurred. Chief Complaint Patient presents with ??? Abdominal Pain Triage note: Patient arrives with complaints of RUQ pain that began a few hours ago, patient reports hx TIPS procedure, hx of liver cirrhosis from LE. Patient endorses spot is tender to palpation.Patient reports recent constipation with use of magnesium citrate. Camilo Curry is a 53 y.o. male with PMH of type 2 diabetes Le cirrhosis status post tips procedure obesity TRACY currently present to the right upper quadrant pain. Symptoms started a few hours ago, come in waves as far as severity goes but are quite severe, brought the patient to tears. He had no nausea vomiting or changes in stool except for the fact he had been doing with some constipation recently. He had been taking stuff in order to help with constipation though. He has been continuing to have bowel movements. He otherwise states that he has had no fevers or chills. Has been taking all his medications regularly. He otherwise has had no bloody stools, no bloody vomit. He states he has never had anything this severe before. 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 Past Medical History: Diagnosis Date ??? DM type 2 (diabetes mellitus, type 2) (HCC) dx 2011 ??? Gallbladder calculus ??? GAVE (gastric antral vascular ectasia) ??? Heart murmur ??? Hepatic encephalopathy (HCC) ??? 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 Mild tricuspid regurgitation ECHO can be found media tab. dated 10/02/15 Past Surgical History: Procedure Laterality Date ??? COLONOSCOPY ??? ESOPHAGEAL VARICE LIGATION ??? TIPS INITIAL N/A 11/23/2015 ??? TIPS REVISION N/A 01/10/2021 Family History Problem Relation Age of Onset ??? Ovarian cancer Mother ??? Throat cancer Father ??? Breast cancer Other Family history of malignant neoplasm of breast - Relation: Grandmother (Added by Mobile[employer] Conv) ??? Stomach cancer Other Family history of malignant neoplasm of stomach - Relation: Grandmother (Added by Mobile[employer] Conv) ??? Heart attack Other Family history of myocardial infarction - Relation: Grandmother (Added by [employer] Conv) ??? Hypertension Other Family history of hypertension - Relation: Grandmother (Added by Mobile[employer] Conv) Social History Social History Narrative ??? Not on file BP 144/93 Pulse 89 Temp 36.4 ??C (97.5 ??F) Resp 15 Wt 95.3 kg (210 lb) SpO2 91% BMI 31.93 kg/m?? Review of systems: Negative unless documented in the HPI or MDM - Constitutional: Patient is well appearing and appears to be nontoxic. - Head: Atraumatic. - Eyes: No scleral icterus. - ENT: No nasal deformity. - Neck: Normal range of motion. - Respiratory: No respiratory distress. No stridor. Clear lungs. - Cardiovascular: Normal rate and regular rhythm. - Abdominal: Non-distended abdomen. Distended abdomen with pain in the right upper quadrant to palpation with involuntary guarding to deep palpation. - Back: Normal inspection and range of motion. - Extremities: Warm and well perfused. - Neuro: No focal deficits. Face symmetric, normal extraocular movements, no asterixis, normal coordination. - Psychiatric: Mood is euthymic. Judgement, insight, memory and concentration appear normal. MDM Medical Decision Making Amount and/or Complexity of Data Reviewed Labs: ordered. Decision-making details documented in ED Course. Radiology: ordered and independent interpretation performed. ECG/medicine tests: ordered. Risk Prescription drug management. Decision regarding hospitalization. Additional history provided by: Prior external notes reviewed: Reviewed emergency medicine note from 11/23/2023 from outside ER Socioeconomic considerations: Sdxugbg-zufnodzl-sbzcrg summation: Camilo Curry is a 53 y.o. male with PMH of type 2 diabetes Le cirrhosis status post tips procedure obesity TRACY currently present to the right upper quadrant pain. Symptoms started a few hours ago, come in waves as far as severity goes but are quite severe, brought the patient to tears. He had no nausea vomiting or changes in stool except for the fact he had been doing with some constipation recently. He had been taking stuff in order to help with constipation though. He has been continuing to have bowel movements. He otherwise states that he has had no fevers or chills. Has been taking all his medications regularly. He otherwise has had no bloody stools, no bloody vomit. He states he has never had anything this severe before. Here the patient is well-appearing no acute distress normal vital signs. His labs appear to be approximately at baseline except for some hyponatremia. He does have significant right upper quadrant tenderness to palpation however. Differential diagnosis includes but not limited to highest concern for tips malfunction, portal vein clot, IVC clot, hepatobiliary infections somewhat less likely given vital signs and well-appearingpatient with baseline labs, verses gastritis, low concern for bowel obstruction given no nausea or vomiting. Gastroparesis is a consideration as well given the patient's sister diabetes. Unlikely to be ACS given location of the pain in the right upper quadrant. Appendicitis less likely given the location of pain. Sepsis unlikely given vital signs. Less likely patent cephalopathy given no signs ofherpetic encephalopathy at this time. Admission considered? : BS In consideration of the above differential diagnosis, the following orders were placed while the patient was in the Emergency Department. See ED course for pertinent results and imaging interpretation. Orders Placed This Encounter Procedures ??? Urinalysis reflex to microscopic and culture Urine ??? CT Abdomen Pelvis WO Contrast ??? US Liver Doppler Complete ??? MRI Abdomen Liver W Contrast ??? CBC with auto differential ??? Comprehensive metabolic panel ??? Lipase ??? Differential, auto ??? eGFR ??? Ammonia ??? Troponin T high-sensitivity ??? DO NOT UNCHECK - ED gerontological nurse practitioner Standing Order: Abdominal Pain ??? Consult to Anesthesiology ??? ECG 12 lead ??? Saline lock IV ??? Admit to inpatient - anticipate 2 or more midnights OR Medicare inpatient only procedure The patient received the following medications: Medications HYDROmorphone (DILAUDID) injection 1 mg (1 mg intravenous Given 01/20/24 031) sodium chloride 0.9% bolus 500 mL (0 mL intravenous Stopped 01/20/24 0130) al & mag hydroxide simethicone-lidocaine oral suspension mixture (40 mL oral Given 01/20/246) famotidine (PEPCID) tablet 20 mg (20 mg oral Given 01/20/246) HYDROmorphone (DILAUDID) injection 0.5 mg (0.5 mg intravenous Given 01/20/246) ondansetron (ZOFRAN) injection 4 mg (4 mg intravenous Given 01/20/24 0301) insulin lispro (HumaLOG, ADMELOG) 100 unit/mL injection 5 Units (5 Units subcutaneous Given ) ondansetron (ZOFRAN) injection 4 mg (4 mg intravenous Given 01/20/24 0814) Attending Summary of Care ED Course as of 01/20/24 1419 Time: 01/19 47 Value: Ammonia, Plasma(!): 104 Comment: (Reviewed) By: Giuseppe Pace MD Time: 01/20 48 Comment: CT scan unrevealing. Will need ultrasound, possibly more By: Giuseppe Pace MD Time: 01/19 0400 Comment: Patient was still having persistent pain. Has required multiple doses of Dilaudid but every time the pain returns. Think that this is very unlikely to be biliary colic given the persistent nature of the pain. Ascending cholangitis less likely given the lack of fevers. Still unclear exactlywhat is causing the patient's symptoms however has persistent nature of symptoms does suggest the nh ed for additional workup. By: Giuseppe Pace MD Time: 01/20 656 Comment: Spoke with GI they are discussing the case with their attending regarding possible admission By: Giuseppe Pace MD Time: 01/19 700 Comment: I By: Giuseppe Pace MD Time: 01/19 717 Comment: Att jovanna 53yM w LE TIPS, obesity , HTN, pw sudden onset RUQ pain a/w N. Req freq pain meds. Ct non con (allergy) neg. RUQ US indeterminent. Spoke to GI and will come to eval pt. Hospitalist refuses to admituntil GI evaluates. Needs admit By: Ramírez Rae MD PhD Time: 01/19 0702 Comment: Attempted to call both hospitalist on coming as well as new a.mMendez GI consult. Awaiting to hear back from both. By: Ramírez Rae MD PhD Time: 01/20 0817 Comment: Discussed with GI regarding additional workup. They recommend MRI of the abdomen. Unfortunately the patient has severe phobia associated with tight spaces and will need sedation By: Giuseppe Pace MD Time: 01/19 0816 Comment: Still awaiting call back from hospitalist team. By: Ramírez Rae MD PhD Time: 01/19 0893 Comment: Discussed with hospitalist. Agrees with plan for admission and sedated MRI to evaluate forhepatic and portal vein thrombosis or failed tips . By: Ramírez Rae MD PhD Time: 01/19 5598 Comment: Dr. North at [facility] has accepted pt. By: Ramírez Rae MD PhD Time: 01/19 1059 Comment: Patient updated on plan for transfer. Had no further questions. By: Ramírez Rae MD PhD Time: 01/19 1418 Comment: Nursing staff discussed with the transfer center who reported that patient unlikely to getbed for the next 2-3 days. When patient was notified of this he elected to leave against medical advice. I had full discussion with the patient about the risks of leaving. He states he understands these risks but is unwilling to wait 3 days to get an MRI. Patient leaving now and told to come back if he feels his symptoms are worsening. By: Rmaírez Rae MD PhD ED Diagnoses: 1. RUQ abdominal pain 2. 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 Abnormal finding on liver function 4. S/P TIPS (transjugular intrahepatic portosystemic shunt) Giuseppe Pace MD 01/20/24 0850 * Leila Bonner RN - 01/19/2024 10:23 PM CDT Patient arrives with complaints of RUQ pain that began a few hours ago, patient reports hx TIPS procedure, hx of liver cirrhosis from LE. Patient endorses spot is tender to palpation. Patient reports recent constipation with use of magnesium citrate. documented in this encounter Miscellaneous Notes * ED Procedure Note - Giuseppe Pace MD - 01/20/2024 12:38 AM CDT Associated Order(s): ECG 12 lead Procedure ECG 12 lead Date/Time: 01/20/2024 12:38 AM Performed by: Giuseppe Pace MD Authorized by: Giuseppe Pace MD Quality: Tracing quality: Limited by artifact Comments: Normal sinus rhythm with a rate of 84. [place] normal. There is no ST deviation. T- waves inverted in AVR and V1. There are no pathologic Q-waves. There is no AV block. There is no ectopy. No acute injury pattern Giuseppe Pace MD 01/20/24 0039 documented in this encounter Plan of Treatment [...] AUTO STAT 01/19/2024 10: 31 PM CDT CBC WITH AUTO DIFFERENTIAL STAT 01/19/2024 10:31 PM CDT LIPASE STAT 01/19/2024 10:31 PM CDT COMPREHENSIVE METABOLIC PANEL STAT 01/19/2024 10:31 PM CDT documented in this encounter Results * (ABNORMAL) Urinalysis reflex to microscopic and culture Urine (01/20/2024 12:55 PM CDT) Color, ur Straw Yellow Clarity, ur Clear Clear [facility] Specific gravity, ur 1.022 1.003 - 1.030 [facility] pH, urine 6.5 [facility] Comment: Interpretive Data ? Urine pH is affected by diet, medications, systemic acid-base disturbances, and renal tubular function. ??pH may affect urinary stone formation. ??For example, urine pH below 6.0 may help reduce the tendency for calcium phosphate stones and pH greater than 6.0 may reduce the tendency for uric acid stone formation. Source: [facility] [employer] Current Interpretive Data was last revised on [...] microscopic UA and culture not met. [facility] Urine 01/20/2024 12:5 5 PM CDT 01/20/2024 1:00 PM CDT Giuseppe Pace MD LAB MICROBIOLOGY - NERAL ORDERABLES Final Result MOHINDER LITTLECH [address] [facility]. Department [place] [address] * (ABNORMAL) POCT glucose (01/20/2024 10:23 AM CDT) Glucose, POC 247(H) 70 - 199 mg/dL Comment: Interpretive Data Glucose is assumed to be non-fasting. Fasting Glucose reference ranges are: 0 - 150 years: ??70 mg/dL - 99 mg/dL Current interpretive data was last revised on 2014. POC Performer [id number] CERXDC POC Device Number [id number] MOHINDER MICHELW Blood 01/20/2024 10:2 3 AM CDT 01/20/2024 10:23 AM CDT Ramírez Rae MD PhD LAB POCT ORDERABLE S - DEVICE Final Result Performing Organization Address [facility] de Phone Number [facility] [address] [facility] [facility] [place] [address] * (ABNORMAL) POCT glucose (01/20/2024 3:00 AM CDT) Glucose, POC 341(H) 70 - 199 mg/dL Comment: Interpretive Data Glucose is assumed to be non-fasting. Fasting Glucose reference ranges are: 0 - 150 years: ??70 mg/dL - 99 mg/dL Current interpretive data was last revised on 2014. POC Performer [id number] [facility] POC Device Number [id number] [facility] Blood 01/20/2024 3:00 AM CDT 01/20/2024 3:00 AM CDT us Giuseppe Pace MD LAB POCT ORDERABLES - DEVICE Final Result Performing Organization Address [facility] Co de Phone Number [facility] [address] [employer] [facility] [place] [address] * US Liver Doppler Complete (01/20/2024 2:58 [...] signed by: Darrell Jewell M.D. us Giuseppe Braydon Pace MD IM US PROCEDURES Fin al [...] sinus rhythm with a rate of 84. ??[place] normal. ??There is no ST deviation. ??T-waves [...] sinus rhythm with a rate of 84. [place] normal. There is no STdeviation. T- waves inverted in AVR and V1. There are no pathologicQ-waves. There is no AV block. There is no ectopy. No acute injury pattern Giuseppe Pace MD 01/20/24 0039 Giuseppe Pace MD ECG ORDERABLES Final Result [facility]IPETTY * Troponin T high-sensitivity (01/20/2024 12:19 AM CDT) Trop T hs 15 <=22 ng/L Comment: Interpretive Data For further hscTnT resources including the diagnostic algorithm and an aid in interpretation, copy and paste this link: https://nrl.testcatalog.org/show/hsTrop Current Interpretive Data last revised 2020. Blood 01/20/2024 12:1 9 AM CDT 01/20/2024 12:23 AM CDT Giuseppe Pace MD LAB BLOOD ORDERABLES Final Result Performing Organization Address [facility] Co de Phone Number [facility] LITTLECH [address] [facility] [place] [address] * (ABNORMAL) Ammonia (01/20/2024 12:19 AM CDT) Ammonia 104(H) <=50 mcmol/L Blood 01/20/2024 12:1 9 AM CDT 01/20/2024 12:23 AM CDT Giuseppe Pace MD LAB BLOOD ORDERABLES Final Result Performing Organization Address [facility] Phone Number [facility] MICHELWCH [address] [facility] [place] [address] * CT Abdomen Pelvis WO Contrast (01/20/2024 [...] with liver Doppler. Preliminary report dictated by personal attendant teleradiologist, Dr. Pancho Covarrubias. Dictated by: Neeraj [...] with liver Doppler. Preliminary report dictated by personal attendant teleradiologist, Dr. Pancho Covarrubias. Dictated by: Neeraj [...] MD LAB BLOOD ORDERABLES Final Result [facility] [address] [facility]. Department [place] [address] * (ABNORMAL) Differential, auto (01/19/2024 10:31 PM CDT) Pathologist [facility] Neutrophil abs 2.6 1.5 - 6.5 K/cumm Imm gran abs 0.0 0.0 - 0.1 K/cumm [facility] Lymphocyte abs 0.7(L) 0.8 - 3.3 K/cumm [facility] Monocyte abs 0.4 0.2 - 0.8 K/cumm [facility] Eosinophil abs 0.1 0.0 - 0.5 K/cumm [facility] Basophil abs 0.1 0.0 - 0.1 K/cumm [facility] Neutrophil pct 65.8 % [facility] Comment: Interpretive Data Percent cell count reference ranges are not reported, since discordance with absolute values may lead to misinterpretation of CBC data. Current Interpretive Data was last revised on 2017. Imm gran pct 0.5 % CERPAULA W Comment: Interpretive Data Percent cell count reference ranges are not reported, since discordance with absolute values may lead to misinterpretation of CBC data. Current Interpretive Data was last revised on 2017. Lymphocyte pct 18.5 % CERPAULA WARD Comment: Interpretive Data Percent cell count reference ranges are not reported, since discordance with absolute values may lead to misinterpretation of CBC data. Current Interpretive Data was last revised on 2017. Monocyte pct 10.6 % CERPAULA WARD Comment: Interpretive Data Percent cell count reference ranges are not reported, since discordance with absolute values may lead to misinterpretation of CBC data. Current Interpretive Data was last revised on 2017. Eosinophil pct 3.3 % MOHINDER WARD Comment: Interpretive Data Percent cell count reference ranges are not reported, since discordance with absolute values may lead to misinterpretation of CBC data. Current Interpretive Data was last revised on 2017. Basophil pct 1.3 % MOHINDER WARD Comment: Interpretive Data Percent cell count reference ranges are not reported, since discordance with absolute values may lead to misinterpretation of CBC data. Current Interpretive Data was last revised on 2017. Blood 01/19/2024 10:3 1 PM CDT 01/19/2024 10:33 PM CDT Giuseppe Pace MD LAB BLOOD ORDERABLES Final Result Performing Organization Address [facility] Co de Phone Number [facility] [address] [employer]. [facility] [place] [address] * Lipase (01/19/2024 10:31 PM CDT) Lipase 19 10 - 99 Units/L Blood (Blood, Venous) 01/19/2024 10:31 PM CDT 01/19/2024 10:33 PM CDT Giuseppe Pace MD LAB BLOOD ORDERABLES Final Result Performing Organization Address [facility]/ZIP Co de Phone Number [facility] [address] [employer]. [facility] [place] [address] * (ABNORMAL) Comprehensive metabolic panel (01/19/2024 10:31 PM CDT) Sodium 134(L) 135 - 145 mmol/L Potassium, pl 4.6 3.3 - 4.9 mmol/L [facility] Chloride 99 97 - 110 mmol/L [facility] CO2 26 22 - 32 mmol/L [facility] Anion gap 9 2 - 15 mmol/L [facility] BUN 10 6 - 25 mg/dL [facility] Creatinine 0.70(L) 0.80 - 1.30 mg/dL [facility] Glucose 405(H) 70 - 199 mg/dL [facility] Comment: Interpretive Data Fasting glucose >/= 126 [...] LAB BLOOD ORDERABLES Final Result [facility]INDER WARD [address] [facility]. Department [place] [address] * (ABNORMAL) CBC with auto differential (01/19/2024 10:31 PM CDT) WBC 4.0 3.8 - 9.9 K/cumm Hgb 15.4 13.0 - 17.5 g/dL [facility] Hct 44.4 38.9 - 50.3 % [facility] Plt 80(L) 150 - 400 K/cumm [facility] MPV 11.2 9.1 - 12.3 fL [facility] RBC 5.28 4.30 - 5.80 M/cumm [facility] MCV 84.1 81.3 - 96.4 fL [facility] MCH 29.2 27.1 - 33.3 pg [facility] MCHC 34.7 32.3 - 35.7 g/dL [facility] RDW CV 18.0(H) 11.1 - 14.9 % [facility] RDW SD 52.4(H) 35.7 - 48.1 fL [facility] NRBC abs 0.02(H) 0.00 - 0.01 K/cumm [facility] Blood (Blood, Venous) 01/19/2024 10:31 PM CDT 01/19/2024 10:33 PM CDT Giuseppe Pace MD LAB BLOOD ORDERABLES Final Result Performing Organization Address [facility]/ZIP Co de Phone Number [facility]OH[facility] LITTLECH [address] [employer]. 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) Abnormal finding on liver function S/P TIPS (transjugular intrahepatic portosystemic shunt) Other postprocedural status Diabetes mellitus, type 2 (HCC) Type II or unspecified type diabetes mellitus without mention of complication, not stated as uncontrolled Morbid obesity with body mass index (BMI) of 40.0 to 44.9 in adult (HCC) Vitamin D deficiency 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) TRACY (obstructive sleep apnea) Obstructive sleep apnea (adult) (pediatric) documented in this encounter Admitting Diagnoses Diagnosis RUQ abdominal pain Abdominal pain, right upper quadrant documented in this encounter Administered Medications Inactive Administered Medications - up to 3 most recent administrations Medication Order MAR Action Action Date Dose Rate Site al & mag hydroxide simethicone-lidocaine oral suspension mixture 40 mL, oral, Once, On Thu01/19/24 at 2356, For 1 dose Given 01/20/2024 12:07 AM CDT 40 mL famotidine (PEPCID) tablet 20 mg 20 mg, oral, Once, On Thu01/19/24 at 2356, For 1 dose Given 01/20/2024 12:07 AM CDT 20 mg HYDROmorphone (DILAUDID) injection 0.5 mg 0.5 mg, intravenous, Administer over 2 Minutes, Once, On Thu01/19/24 at 2356, For 1 dose Given 01/20/2024 12:07 AM CDT 0.5 mg HYDROmorphone (DILAUDID) injection 1 mg 1 mg, intravenous, Administer over 2 Minutes, Every 2 hours PRN, 1st line for pain, Starting on Thu01/20/24 at 0305 Given 01/20/2024 3:12 AM CDT 1 mg insulin lispro (HumaLOG, ADMELOG) 100 unit/mL injection 5 Units 5 Units, subcutaneous, Once, On Thu01/20/24 at 0307, For 1 dose Given 01/20/2024 3:12 AM CDT 5 Units Right Upper Arm ondansetron (ZOFRAN) injection 4 mg 4 mg, intravenous, Administer over 2 Minutes, Once, On Thu01/20/24 at 0130, For 1 dose Given 01/20/2024 3:01 AM CDT 4 mg ondansetron (ZOFRAN) injection 4 mg 4 mg, intravenous, Administer over 2 Minutes, Once, On Thu01/20/24 at 0810, For 1 dose Given 01/20/2024 8:14 AM CDT 4 mg sodium chloride 0.9% bolus 500 mL 500 mL, intravenous, Once, On Thu01/19/24 at 2356, For 1 dose New Bag 01/20/2024 12:08 AM CDT 500 mL documented in this encounter Discontinued Medications Medication Sig Discontinue Reason Start Date End Da te acetaminophen-codeine (TYLENOL with CODEINE #3) 300-30 mg per tablet Take 1 tablet by mouth every 4 (four) hours as needed for pain Therapy completed 01/20/2024 cyclobenzaprine (FLEXERIL) 5 mg tablet Therapy completed 11/09/2020 024 rifAXIMin (XIFAXAN) 550 mg tabletIndications:Hepatic Encephalopathy Take 1 tablet (550 mg total) by mouth 2 (two) times a day Therapy completed 08/30/2020 01/20/2024 PROVENTIL HFA 90 mcg/actuation inhaler Duplicate order 01/14/2018 01/20/2024 omeprazole (PriLOSEC) 20 mg capsule 2 times daily. Therapy completed 09/10/2015 01/20/2024 Victoza 3-Anatoliy 0.6 mg/0.1 mL (18 mg/3 mL) injection INJECT 1.8 MG UNDER THE SKIN DAILY Therapy completed 09/02/2021 01/20/2024 ondansetron (ZOFRAN) 4 mg tablet take 1 tab every 8 hours prn nausea and vomitting Therapy completed 09/10/2015 01/20/2024 traMADoL (ULTRAM) 50 mg tablet Take 1 tablet (50 mg total) by mouth every 8 (eight) hours as needed for pain Therapy completed 06/06/2021 01/20/2024 documented as of this encounter Historical Medications * This list may reflect changes made after this encounter. traZODone (DESYREL) 100 mg tablet Take 1 tablet (100 mg total) by mouth 2 (two) times a day 02/02/2023 HumaLOG 100 unit/mL pen for injection 3 times daily (before meals). 02/02/2023 LANTUS 100 unit/mL (3 mL) pen for injection INJECT 35 UNITS SUBCUTANEOUSLY IN THE MORNING AND 50 UNITS IN THE EVENING 02/02/2023 HYDROcodone-bella taminophen (NORCO) 10-325 mg per tablet Take 1 tablet by mouth every 6 (six) hours as needed famotidine (PEPCID) 20 mg tablet Take 1 tablet (20 mg total) by mouth 2 (two) times a day 05/20/2023 Trulicity 0.75 mg/0.5 mL pen injector Inject 0.5 mL (0.75 mg total) under the skin once a week 07/03/2023 albuterol HFA (PROVENTIL HFA,VENTOLIN HFA,PROAIR HFA) 90 mcg/actuation inhaler Inhale 2 puffs every 6 (six) hours as needed for wheezing or shortness of breath pregabalin (LYRICA) 200 mg capsule Take 1 capsule (200 mg total) by mouth 2 (two) times a day hydrOXYzine (ATARAX) 25 mg tablet Take 1 tablet (25 mg total) by mouth 4 (four) times a day 12/01/2023 carvediloL (COREG) 3.125 mg tablet Take 1 tablet (3.125 mg total) by mouth 2 (two) times a day with meals 02/17/2023 added in this encounter Active and Recently Administered Medications Times are shown in CDT. Scheduled Medication Order 01/18/2024 01/19/2024 01/20/2024 al & mag hydroxide simethicone-lidocaine oral suspension mixture (COMPLETED) 40 mL, oral, Once, On Thu01/19/24 at 2356, For 1 dose 0007 (Given - Provid er: Rhonda Mclean RN) famotidine (PEPCID) tablet 20 mg (COMPLETED) 20 mg, oral, Once, On Thu01/19/24 at 2356, For 1 dose 0007 (Given - Provid er: Rhonda Mclean RN) hydroCHLOROthiazide (HYDRODIURIL) tablet 25 mg 25 mg, oral, Daily, First dose on Thu01/20/24 at 1301 1345 (Not Given - Pr ovider: Mary Jo Batres RN - Reason: Patient/family refused) HYDROmorphone (DILAUDID) injection 0.5 mg (COMPLETED) 0.5 mg, intravenous, Administer over 2 Minutes, Once, On Thu01/19/24 at 2356, For 1 dose 0007 (Given - Provid er: Rhonda Mclean RN) insulin lispro (HumaLOG, ADMELOG) 100 unit/mL injection 5 Units (COMPLETED) 5 Units, subcutaneous, Once, On Thu01/20/24 at 0307, For 1 dose 0312 (Given - Provid er: Rhonda Mclean RN) ondansetron (ZOFRAN) injection 4 mg (COMPLETED) 4 mg, intravenous, Administer over 2 Minutes, Once, On Thu01/20/24 at 0130, For 1 dose 0301 (Given - Provid er: Rhonda Mclean RN) ondansetron (ZOFRAN) injection 4 mg (COMPLETED) 4 mg, intravenous, Administer over 2 Minutes, Once, On Thu01/20/24 at 0810, For 1 dose 0814 (Given - Provid er: Karina Hernandez RN) pantoprazole DR (PROTONIX) extended release tablet 40 mg 40 mg, oral, 2 times daily, First dose on Thu01/20/24 at 1301, Do not crush, chew, cut, dissolve, open or otherwise manipulate tablet/capsule., Indications: Treatment of Non-Bleeding Gastric Disorder 1345 (Not Given - Pr ovider: Mary Jo Batres RN - Reason: Patient/family refused) sodium chloride 0.9% bolus 500 mL (COMPLETED) 500 mL, intravenous, Once, On Thu01/19/24 at 2356, For 1 dose 0008 (New Bag - Prov ider: Rhonda Mclean RN)0130 (Stopped - Provider: Rhonda Mclean RN) PRN Medication Order 01/18/2024 01/19/2024 01/20/2024 albuterol HFA (PROVENTIL HFA,VENTOLIN HFA,PROAIR HFA) 90 mcg/actuation inhaler 2 puff 2 puff, inhalation, Every 6 hours PRN (supervisor correspondence section), wheezing, Starting on Thu01/20/24 at 1300 cyclobenzaprine (FLEXERIL) tablet 5 mg 5 mg, oral, 3 times daily PRN, muscle spasms, Starting on Thu01/20/24 at 1300 HYDROmorphone (DILAUDID) injection 1 mg 1 mg, intravenous, Administer over 2 Minutes, Every 2 hours PRN, 1st line for pain, Starting on Thu01/20/24 at 0305 0312 (Given - Provid er: Rhonda Mclean RN) lactulose 0.67 gram/mL oral solution 10 g 10 g, oral, 3 times daily PRN, titrate to goal of 3-4 BM a day, Starting on Thu01/20/24 at 1300 documented in this encounter Orders Medications Ordered That Ronnie ht Not Have Been Administered Count Last Ordered Date First Ordered Date albuterol HFA (PROVENTIL HFA ,VENTOLIN HFA,PROAIR HFA) 90 mcg/actuation inhaler 2 puff 1 01/20/2024 cyclobenzaprine (FLEXERIL) tablet 5 mg 1 dextrose (D10W) 10% bolus 250 mL 01/20/20 dextrose (GLUTOSE) 40 % gel 15 g 1 01/20/20 glucagon injection 1 mg 1 01/20/2024 hydroCHLOROthiazide (HYDRODI URIL) tablet 25 mg 1 01/20/2024 insulin lispro (HumaLOG, ADM ELOG) 100 unit/mL injection 0-10 Units 1 01/20/2024 insulin lispro (HumaLOG, ADM ELOG) 100 unit/mL injection 0-5 Units 1 01/20/2024 lactulose 0.67 gram/mL oral solution 10 g 1 01/20/[address] (PROTONIX) e xtended release tablet 40 mg 1 01/20/2024 Nursing Count Last Ordered Date First Orde red Date MISCELLANEOUS NURSING CARE ORDER (SPECIFY) 01/19/2024 IV Count Last Ordered Date First Orde red Date SALINE LOCK IV 1 01/19/2024 Admission Count Last Ordered Date First Orde red Date ADMIT TO INPATIENT 1 01/20/2024 documented in this encounter 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
--- OUTSIDE RECORDS SUMMARY | 2024-04-19 23:07 | XMS_ITS | Encounter Summary ---
Author Organization [facility] Healthcare Address [address] [place] [address] Care Team Providers Care Golf Course Designer Name Role Phone Braydon Pavon Primary Care Provider [phone] Nikolay Lancaster MD Unavailable [phone] Reason for Referral * Diagnostic Imaging (Routine) - Closed Specialty Diagnoses / Procedures Referred By Contac t Referred To Contact Radiology Diagnoses Hepatic cirrhosis, unspecified hepatic cirrhosis type, unspecified whether ascites present (HCC) Procedures IR TIPS Revision Damien Archuleta MD Phone: tel: fax: [address] [address] Referral ID Status Reason Start Date Expiration Date Visits Re quested Visits Authorized [id number] Closed 01/02/2021 02/01/2022 1 1 Reason for Visit * Diagnostic Imaging (Routine) - Closed Specialty Diagnoses / Procedures Referred By Contac t Referred To Contact Radiology Diagnoses Hepatic cirrhosis, unspecified hepatic cirrhosis type, unspecified whether ascites present (HCC) Procedures IR TIPS Revision Damien Archuleta MD Phone: tel: fax: [address] [address] Referral ID Status Reason Start Date Expiration Date Visits Re quested Visits Authorized [id number] Closed 01/02/2021 02/01/2022 1 1 Encounter Details Date Type Department Care Team (Latest Contact Info) Description 01/10/2021 7:49 AM CDT - 01/10/2021 11:38 AM CDT [facility] [address] [place] [address] Damien Archuleta MD [address] [facility] [place] [address] 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) (Primary Dx); Hepatic cirrhosis, unspecified hepatic cirrhosis type, unspecified whether ascites present (HCC); S/P TIPS (transjugular intrahepatic portosystemic shunt) Discharge Disposition: Discharge to home or self [...] on file Legal Sex Male 2:52 PM LAUNCH CHECK OUT Gender Identity Male 10/29/2020 12:37 PM CDT Sexual Orientation Straight 10/29/2020 12 :37 PM CDT documented as of this encounter Last Filed Vital Signs Vital Sign Reading Time Taken Comments Blood Pressure 165/78 01/10/2021 10:40 AM CDT Pulse 96 01/10/2021 11:00 AM CDT Temperature 36 ??C (96.8 ??F) 01/10/2021 10:25 AM CDT Respiratory Rate 16 01/10/2021 11:00 AM CDT Oxygen Saturation 96% 01/10/2021 11:00 AM CDT Inhaled Oxygen Concentration - - Weight - - Height - - Body Mass Index - - documented in this encounter Discharge Diagnoses Diagnosis Stenosis of other vascular prosthetic devices, implants and grafts, initial encounter ([facility]) - STENOSIS OF OTHER VASCULAR PROSTHETIC DEVICES, IMPLANTS AND GRAFTS, INITIAL ENCOUNTER Nonalcoholic steatohepatitis (BLAND) - NONALCOHOLIC STEATOHEPATITIS (BLAND) Portal hypertension (CMS/HCC) ([facility]) - PORTAL HYPERTENSION Portal hypertension Other diseases of stomach and duodenum - OTHER DISEASES OF STOMACH AND DUODENUM Secondary esophageal varices without bleeding (CMS/HCC) ([facility]) - SECONDARY ESOPHAGEAL VARICES WITHOUT BLEEDING Compression of vein - COMPRESSION OF VEIN Type 2 diabetes mellitus without complications (CMS/HCC) ([facility]) - TYPE 2 DIABETES MELLITUS WITHOUT COMPLICATIONS Angiodysplasia of stomach and duodenum without bleeding - ANGIODYSPLASIA OF STOMACH AND DUODENUM WITHOUT BLEEDING Angiodysplasia of stomach and duodenum (without mention of hemorrhage) Endocarditis, valve unspecified - ENDOCARDITIS, VALVE UNSPECIFIED Allergy status to sulfonamides - ALLERGY STATUS TO SULFONAMIDES Allergy status to penicillin - ALLERGY STATUS TO PENICILLIN Allergy status to other antibiotic agents - ALLERGY STATUS TO OTHER ANTIBIOTIC AGENTS Allergy status to other drugs, medicaments and biological substances - ALLERGY STATUS TO OTHER DRUGS, MEDICAMENTS AND BIOLOGICAL SUBSTANCES Radiographic dye allergy status - RADIOGRAPHIC DYE ALLERGY STATUS Other cutter out (current) drug therapy - OTHER WORKFORCE MANAGEMENT COORDINATOR (CURRENT) DRUG THERAPY shelter (current) use of insulin ([facility]) - WORKFORCE MANAGEMENT COORDINATOR (CURRENT) USE OF INSULIN Surgical operation with implant of artificial internal device as the cause of abnormal reaction of the patient, or of later complication, without mention of misadventure at the time of the procedure - SURGICAL OPERATION WITH IMPLANT OF ARTIFICIAL INTERNAL DEVICE THE CAUSE OF ABNORMAL REACTION OF T Unspecified place or not applicable - UNSPECIFIED PLACE OR NOT APPLICABLE Activity, unspecified - ACTIVITY, UNSPECIFIED Unspecified external cause status - UNSPECIFIED EXTERNAL CAUSE STATUS documented in this encounter Discharge Instructions * Discharge Instructions* Rosario Cabrera MD - 01/10/2021 10:33 AM CDT Interventional Radiology Outpatient Discharge Instructions/Note Diagnosis:Transjugular intrahepatic portosystemic shunt stenosis at the portal vein end as well itsmisegment Procedure: Intra stent angioplasty and extension of the existing stent Limitations: [x] No lifting greater than 5 pounds with [x] Right [x] Left arm for 7 days. [] You received medication that may affect your judgement. ?? Stay with a responsible person today. ?? Do not drive, operate machinery, make any legal or important decisions, or drink alcohol until tomorrow. ?? No smoking unless another adult is present. Other Diet: You may resume your previous diet. Medication: [x] Usual medications; check with your regular doctor for any questions. Do not take any new pain medicine, sleeping pills or sedatives unless approved by your doctor. [] Prescriptions given for: Procedure Site Care: [] teaching sheet given [] Skin glue was used to close your incision. See teaching sheet. [] Keep site clean and dry. [] You may bathe or shower tomorrow. [] Change the dressing daily and if it becomes wet or dirty. [] Cover entire area with plastic and tape down edges before showering to keep site clean and dry. [] The suture at your dialysis access site may be removed by the dialysis staff on ___/___/___ (date). Drainage Tube Care: [] Flush tube with [] 5ml Normal Saline [] 10 ml Normal Saline [] Other: [] Flush tube [] once a day [] Other: [] Record drainage output every day. [] Your tube is capped. Uncap the tube after or if severe pain or fever develops. (Please see teaching sheet). [] Call Interventional Radiology if there is leakage around the tube or the tube stops draining. To contact an Interventional Radiologist at [facility] call [phone] Thursday through Thursday from 7:30am-4:30pm. At all other times call [phone] and ask that the Interventional Radiologist be paged. To contact an Interventional Radiologist at [facility] call [phone] Thursday through Thursday from 7:30am-3:30pm. Special instructions: Please call Interventional Radiology for any procedure related questions or problems including: ?? Extreme swelling or bruising at the site. ?? Unusual drainage or bleeding from procedure site. ?? Fever of 101.5 F for more than 24 hours. ?? Severe procedure related pain. Follow up care: Patient will be scheduled for follow-up Liver Doppler ultrasound in months [] Return to Interventional Radiology on at Please come to: [] 3rd Floor [facility] [] 4th floor [facility] [] [facility] [] [facility] Please call [phone] to schedule a follow up appointment. You need to return in documented in this encounter Medications at Time of Discharge BD Ultra-Fine Short Pen Needle 31 gauge x 5/16 needle Inject 1 each under the skin daily To be used with the victoza 100 each 3 11/07/2020 HUMULIN R U-500, CONC, KWIKPEN 500 unit/mL (3 mL) CONCENTRATED injection 01/02/2018 hydroCHLOROthiazide (HYDRODIURIL) 25 mg tablet Take 1 tablet (25 mg total) by mouth daily lactulose solution 10 gram/15mL TAKE 30MLS BY MOUTH FOUR TIMES A DAY NEEDED 09/10/2015 ONETOUCH ULTRA BLUE TEST STRIP strip 01/05/2018 acetaminophen-codein e (TYLENOL with CODEINE #3) 300-30 mg per tablet Take 1 tablet by mouth every 4 (four) hours as needed for pain 4 ALPRAZolam (XANAX) 0.5 mg tablet TAKE 1 TABLET TWICE DAILY NEEDED. 09/10/2015 2 amitriptyline (ELAVIL) 25 mg tablet 11/16/2020 2 clindamycin (CLINDAGEL) 1 % gel 11/20/202005/20 2 codeine-guaiFENesin- pseudoephedrine (Virtussin DAC) 2-20-6 mg/mL syrup every 6 (six) hours 2 cyclobenzaprine (FLEXERIL) 5 mg tablet 11/09/2020 4 FreeStyle Elijah 2 Sensor kitIndications:Type 2 diabetes mellitus with hyperglycemia, with long-term current use of insulin (HCC) One sensor every 14 days 6 kit 3 10/29/2020 2 gabapentin (NEURONTIN) 600 mg tabletIndications:Di abetic neuropathy associated with type 2 diabetes mellitus (CMS/HCC) (HCC) Take 1 tablet (600 mg total) by mouth 3 (three) times a day 270 tablet 3 10/29/2020 2 ketoconazole (NIZORAL) 2 % cream 11/20/202005/20 2 lidocaine (LIDODERM) 5 % 11/12/2020 2 lidocaine (XYLOCAINE) 5 % ointment 11/16/2020 2 liraglutide (Victoza 3-Anatoliy) 0.6 mg/0.1 mL (18 mg/3 mL) injectionIndications :type 2 diabetes mellitus Inject 1.8 mg under the skin daily Indications: type 2 diabetes mellitus 3 pen 3 11/07/2020 2 omeprazole (PriLOSEC) 20 mg capsule 2 times daily. 09/10/2015 4 ondansetron (ZOFRAN) 4 mg tablet take 1 tab every 8 hours prn nausea and vomitting 09/10/2015 4 PROVENTIL HFA 90 mcg/actuation inhaler 01/14/2018 4 rifAXIMin (XIFAXAN) 550 mg tabletIndications:He patic Encephalopathy Take 1 tablet (550 mg total) by mouth 2 (two) times a day 60 tablet 11 08/30/2020 4 semaglutide (Ozempic) 1 mg/dose (2 mg/1.5 mL) pen injector injection Inject 1 mg under the skin every 7 days Sample Lot [id number] Exp 03/03/2023 x 2 pens 2 pen 11/07/2020 2 traMADol (ULTRAM) 50 mg tablet TAKE 1 TABLET 3 TIMES DAILY NEEDED. 12/08/2016 2 valACYclovir (VALTREX) 1 gram tablet 11/19/2020 2 documented as of this encounter Discharge Disposition Disposition Code Departure Means Destination Discharge to home or self care documented in this encounter Miscellaneous Notes * Perioperative Nursing Note - Cinthia Friend RN - 01/10/2021 11:[address] Ponce's PA at bedside for post check prior to discharge. * Pre-Procedure Note - Rosario Cabrera MD - 01/10/2021 8:52 AM CDT Images from the original note were not included. Radiology Long Sedation Form Indication: Portal hypertension, grade 1 esophageal varices and portal gastropathy with transjugular intrahepatic portosystemic shunt stenosis Planned Procedure: Transjugular intrahepatic portosystemic shunt revision, and possible variceal embolization Planned Sedation/Anesthesia: minimal sedation History of Sedation/Anesthesia Complications: No History: 50-year-old male with nonalcoholic steatohepatitis status post transjugular intrahepatic portosystemic shunt placement in 2016 for management of variceal bleeding refractory to endoscopic banding. Ofthe most recent the Doppler ultrasound of the liver Maximum velocity within the stent graft occurs in the proximal portion and measures 88 cm/sec (previously measured 113 cm/sec). Minimum velocity occurs within the mid portion of the stent and measures 53 cm/sec (previously measured 109 cm/sec).. Within the proximal portion of the stent, there is an echogenic filling defect within the lumen of the stent. Endoscopy demonstrated grade 1 varices with portal gastropathy without evidence of recent bleeding. Patient endorses melena and maroon colored stool. PMH/PSH: Past Medical History: Diagnosis Date ??? DM type 2 (diabetes mellitus, type 2) (HCC) dx 2011 ??? Gallbladder calculus ??? GAVE (gastric antral vascular ectasia) ??? Heart murmur ??? Heart valve disease ??? BLAND (nonalcoholic steatohepatitis) Past Surgical History: Procedure Laterality Date ??? COLONOSCOPY ??? ESOPHAGEAL VARICE LIGATION ??? TIPS INITIAL N/A 11/23/2015 ??? UPPER GASTROINTESTINAL ENDOSCOPY ROS: Review of systems per HPI and otherwise all other systems are negative Allergies: Azactam [aztreonam], Ciprofloxacin, Octreotide, Penicillins, Duloxetine, Dye, Erythromycin, Esomeprazole, Iodine, Iv contrast dye [iodinated contrast media], Nexium [esomeprazole magnesium], Penicillin, Sulfa (sulfonamide antibiotics), Nisoldipine, and Prochlorperazine Current Meds: No outpatient medications have been marked as taking for the 01/10/21 encounter (Appointment) with [facility] N IR 363. Physical exam: Breathing is nonlabored. Heart sounds are normal Abdomen is soft and nontender Most Recent Vitals: There were no vitals filed for this visit. Vitals: 01/10/21 0807 BP: 152/84 Pulse: 97 Resp: 11 Temp: 36.5 ??C (97.7 ??F) TempSrc: Temporal SpO2: 96% Airway Assessment: Current Outpatient Medications Medication Sig Comment ??? acetaminophen-codeine (TYLENOL with CODEINE #3) 300-30 mg per tablet Take 1 tablet by mouth every 4 (four) hours as needed for pain ??? ALPRAZolam (XANAX) 0.5 mg tablet TAKE 1 TABLET TWICE DAILY NEEDED. ??? amitriptyline (ELAVIL) 25 mg tablet ??? BD Ultra-Fine Short Pen Needle 31 gauge x 5/16 needle Inject 1 each under the skin daily To beused with the victoza ??? clindamycin (CLINDAGEL) 1 % gel ??? seneiod-xrvaBEJqyvb-bmmpxgiryijxjvw (Virtussin DAC) 2-20-6 mg/mL syrup every 6 (six) hours ??? cyclobenzaprine (FLEXERIL) 5 mg tablet ??? FreeStyle Elijah 2 Sensor kit One sensor every 14 days ??? gabapentin (NEURONTIN) 600 mg tablet Take 1 tablet (600 mg total) by mouth 3 (three) times a day ??? HUMULIN R U-500, CONC, KWIKPEN 500 unit/mL (3 mL) CONCENTRATED injection ??? hydroCHLOROthiazide (HYDRODIURIL) 25 mg tablet Take 25 mg by mouth daily ??? ketoconazole (NIZORAL) 2 % cream ??? lactulose solution 10 gram/15mL TAKE 30MLS BY MOUTH FOUR TIMES A DAY NEEDED ??? lidocaine (LIDODERM) 5 % ??? lidocaine (XYLOCAINE) 5 % ointment ??? liraglutide (Victoza 3-Anatoliy) 0.6 mg/0.1 mL (18 mg/3 mL) injection Inject 1.8 mg under the skin daily Indications: type 2 diabetes mellitus ??? omeprazole (PriLOSEC) 20 mg capsule 2 times daily. ??? ondansetron (ZOFRAN) 4 mg tablet take 1 tab every 8 hours prn nausea and vomitting ??? ONETOUCH ULTRA BLUE TEST STRIP strip ??? PROVENTIL HFA 90 mcg/actuation inhaler ??? rifAXIMin (XIFAXAN) 550 mg tablet Take 1 tablet (550 mg total) by mouth 2 (two) times a day ??? semaglutide (Ozempic) 1 mg/dose (2 mg/1.5 mL) pen injector injection Inject 1 mg under the skinevery 7 days Sample Lot [id number] Exp 03/03/2023 x 2 pens ??? traMADol (ULTRAM) 50 mg tablet TAKE 1 TABLET 3 TIMES DAILY NEEDED. ??? valACYclovir (VALTREX) 1 gram tablet Labs/Imaging: Hematology Lab History Some values may be hidden. Unless noted otherwise, only the newest values recorded on each date aredisplayed. Labs - Hematology Latest Ref Range 08/30/20 WBC 3.8 - 9.9 K/cumm 3.3 (A) Total Hb, POC 13.0 - 17.5 g/dL 8.4 (A) Hct 38.9 - 50.3 % 31.1 (A) Plt 150 - 400 K/cumm 80 (A) (A) Abnormal value Chemistry Lab Results Component Value Date SODIUM 138 08/30/2020 POTASSIUM 4.1 08/30/2020 CHLORIDE 99 08/30/2020 CO2 26 08/30/2020 ANIONGAP 13 08/30/2020 BUNSER 15 08/30/2020 CREATININE 0.66 (L) 08/30/2020 GLUCOSE 290 (H) 12/17/2020 CALCIUM 9.0 08/30/2020 BILITOT 1.1 08/30/2020 PROTEIN 6.7 06/01/2016 ALBUMIN 3.9 08/30/2020 GFRNAA >90 08/30/2020 ALKPHOS 71 08/30/2020 AST 68 (H) 08/30/2020 ALT 67 (H) 08/30/2020 PHOS 2.9 02/02/2018 MAGNESIUM 1.4 02/02/2018 Lab Results Component Value Date PT 14.8 (H) 08/30/2020 APTT 29 10/27/2018 INR 1.1 08/30/2020 Assessment: 50-year-old male with nonalcoholic steatohepatitis status post transjugular intrahepatic portosystemic shunt placement in 2016 for management of variceal bleeding refractory to endoscopicbanding. Of the most recent the Doppler ultrasound of the liver Maximum velocity within the stent graft occurs in the proximal portion and measures 88 cm/sec (previously measured 113 cm/sec). Minimum velocity occurs within the mid portion of the stent and measures 53 cm/sec (previously measured 109 cm/sec).. Within the proximal portion of the stent, there is an echogenic filling defect within the lumen of the stent. Endoscopy demonstrated grade 1 varices with portal gastropathy without evidence of recent bleeding. Will proceed with transjugular intrahepatic portosystemic shunt revision. Of note due to contrast allergy the transjugular intrahepatic portosystemic shunt revision will be done with carbon dioxide contrast. Patient has been experiencing maroon-colored stool as well as intermittent melena. Will proceed with transjugular intrahepatic portosystemic shunt revision with possible variceal embolization. ASA Score: ASA 4 - Patient with severe systemic disease that is a constant threat to life NPO time: After 11:00 p.m. Benefits, risks and alternatives of procedure and planned sedation have been discussed with the patient and/or their food service sales representatives. All questions answered and they agree to proceed. documented in this encounter Plan of Treatment Not on file documented as of this encounter Procedures Procedure Name Priority Date/Time Associated Diagnosis Comments POCT GLUCOSE DEVICE Routine 01/10/2021 10:37 AM CDT TIPS REVISION Schedule Routine, Read Routine (OP Routine) 01/10/2021 10:23 AM CDT Hepatic cirrhosis, unspecified hepatic cirrhosis type, unspecified whether ascites present (HCC) documented in this encounter Results * POCT glucose (01/10/2021 10:37 AM CDT) Glucose, POC 189 70 - 199 mg/dL MOHINDER MICHEL Blood 01/10/2021 10:3 7 AM CDT 01/10/2021 10:37 AM CDT us Damien Archuleta MD LAB POCT ORDERABLES - DEVICE F inal Result MOHINDER [facility] Department [place] [address] * IR TIPS Revision (01/10/2021 10:23 AM CDT) Anatomical Region Laterality Modality Body N/A Ultrasound 01/10/2021 6:08 PM CDT Impressions 01/11/2021 7:07 AM CDT 1. ??Stenosis of the portal vein end as well as parenchymal tract portion of the TIPS with successful angioplasty and stenting resulting in near complete resolution of the stenoses. ??The portosystemic gradient decreased from 27 mmHg to 13 mmHg. PLAN: Patient will be evaluated with Doppler ultrasound examination of the TIPS ??in 3 months. Dictated by: Rosario Cabrera The radiology attending physician has personally reviewed this study, and had reviewed and/or edited this written report and agrees with it. Electronically signed by: Damien Archuleta M.D. Narrative 01/11/2021 7:07 AM CDT EXAMINATION: ??TRANSJUGULAR INTRAHEPATIC PORTOSYSTEMIC SHUNT REVISION HISTORY/INDICATION: ??50-year-old male with nonalcoholic steatohepatitis status post transjugular intrahepatic portosystemic shunt placement in 2016 for management of variceal bleeding refractory to endoscopic banding. ??most recent the Doppler ultrasound demonstrated decreased flow velocity within the stent as well as echogenic filling defect within the TIPS stent ??concerning for stenosis, patient has been experiencing intermittent maroon-colored stool as well as melena. ??Endoscopy demonstrated grade 1 varices with portal gastropathy without evidence of recent bleeding. ??As such, Interventional radiology was consulted for TIPS revision. ATTENDING PRESENCE: Damien Archuleta M.D., the attending radiologist, was present from the beginning to the end of the procedure. SEDATION: Procedural sedation was administered under the attending physician's direction and continuous monitoring by a trained nurse specialist who was independent from those actually performing the procedure. ??Total monitored sedation time was 80 minutes. TECHNIQUE: ??The risks, benefits and alternatives were discussed and informed consent was obtained. Prior to beginning the procedure, Weston Protocol was performed to confirm the patient's identity and the planned procedure. ??The fluoroscopy time has been recorded in the electronic medical record. ??Maximum sterile barriers including cap, mask, hand hygiene, sterile gloves, sterile gown, large sterile drape and 2% chlorhexidine for cutaneous antisepsis were used. The skin over the right internal jugular access site was anesthetized by infiltration of 1% lidocaine. The vein was accessed using real-time ultrasound guidance. A wire was advanced centrally followed by placement of a 9 Occitan vascular sheath. A Lev ??catheter was advanced and used to catheterize the hepatic vein and the intrahepatic stent graft. ??A catheter was advanced into the portal vein and portal venography was done with CO2. ??Pressures were measured in the portal vein and right atrium. After identifying a stenosis of the portal vein end as well as parenchymal tract portion, the lesion was treated with balloon angioplasty and stenting the portal vein and. ??A 14 x 60 mm ??Lifestar stent was advanced and utilized. A catheter was re-advanced into the portal vein for final venography and post-revision pressure measurements. The catheters were removed and hemostasis was achieved at the access site by manual compression. ESTIMATED BLOOD LOSS: Minimal. CONDITION: Stable DISCHARGED TO: outpatient recovery. FINDINGS: Initial ultrasound imaging of the access vein showed a patent right internal jugular vein. An image was recorded. The initial venogram with CO2 showed normal flow through TIPS. ??No enlarged esophageal varices was opacified during injection of the CO2. ?? Pressures were measured revealing a portal vein pressure of 40 mmHg, right atrial pressure of 13 mmHg thus giving a portosystemic gradient of 27 mmHg. After revision of the TIPS, venography showed good flow through the TIPS. Following revision, the post-TIPS pressures were: portal vein pressure of 33 mmHg, right atrial pressure of 20 mmHg thus giving a portosystemic gradient of 13 mmHg. Procedure Note Damien Archuleta MD - 01/11/2021 EXAMINATION: TRANSJUGULAR INTRAHEPATIC PORTOSYSTEMIC SHUNT REVISION HISTORY/INDICATION: 50-year-old male with nonalcoholic steatohepatitis status post transjugular intrahepatic portosystemic shunt placement in 2016 for management of variceal bleeding refractory to endoscopic banding. most recent the Doppler ultrasound demonstrated decreased flow velocity within the stent as well as echogenic filling defect within the TIPS stent concerning for stenosis, patient has been experiencing intermittent maroon-colored stool as well as melena. Endoscopy demonstrated grade 1 varices with portal gastropathy without evidence of recent bleeding. As such, Interventional radiology was consulted for TIPS revision. ATTENDING PRESENCE: Damien Archuleta M.D., the attending radiologist, was present from the beginning to the end of the procedure. SEDATION: Procedural sedation was administered under the attending physician's direction and continuous monitoring by a trained nurse specialist who was independent from those actually performing the procedure. Total monitored sedation time was 80 minutes. TECHNIQUE: The risks, benefits and alternatives were discussed and informed consent was obtained. Prior to beginning the procedure, Weston Protocol was performed to confirm the patient's identity and the planned procedure. The fluoroscopy time has been recorded in the electronic medical record. Maximum sterile barriers including cap, mask, hand hygiene, sterile gloves, sterile gown, large sterile drape and 2% chlorhexidine for cutaneous antisepsis were used. The skin over the right internal jugular access site was anesthetized by infiltration of 1% lidocaine. The vein was accessed using real-time ultrasound guidance. A wire was advanced centrally followed by placement of a 9 Occitan vascular sheath. A Lev catheter was advanced and used to catheterize the hepatic vein and the intrahepatic stent graft. A catheter was advanced into the portal vein and portal venography was done with CO2. Pressures were measured in the portal vein and right atrium. After identifying a stenosis of the portal vein end as well as parenchymal tract portion, the lesion was treated with balloon angioplasty and stenting the portal vein and. A 14 x 60 mm Lifestar stent was advanced and utilized. A catheter was re-advanced into the portal vein for final venography and post-revision pressure measurements. The catheters were removed and hemostasis was achieved at the access site by manual compression. ESTIMATED BLOOD LOSS: Minimal. CONDITION: Stable DISCHARGED TO: outpatient recovery. FINDINGS: Initial ultrasound imaging of the access vein showed a patent right internal jugular vein. An image was recorded. The initial venogram with CO2 showed normal flow through TIPS. No enlarged esophageal varices was opacified during injection of the CO2. Pressures were measured revealing a portal vein pressure of 40 mmHg, right atrial pressure of 13 mmHg thus giving a portosystemic gradient of 27 mmHg. After revision of the TIPS, venography showed good flow through the TIPS. Following revision, the post-TIPS pressures were: portal vein pressure of 33 mmHg, right atrial pressure of 20 mmHg thus giving a portosystemic gradient of 13 mmHg. IMPRESSION: 1. Stenosis of the portal vein end as well as parenchymal tract portion of the TIPS with successful angioplasty and stenting resulting in near complete resolution of the stenoses. The portosystemic gradient decreased from 27 mmHg to 13 mmHg. PLAN: Patient will be evaluated with Doppler ultrasound examination of the TIPS in 3 months. Dictated by: Rosario Cabrera The radiology attending physician has personally reviewed this study, and had reviewed and/or edited this written report and agrees with it. Electronically signed by: Damien Archuleta M.D. 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)- Primary Hepatic cirrhosis, unspecified hepatic cirrhosis type, unspecified whether ascites present (HCC) S/P TIPS (transjugular intrahepatic portosystemic shunt) Other postprocedural status documented in this encounter Administered Medications Inactive Administered Medications - up to 3 most recent administrations Medication Order MAR Action Action Date Dose Rate Site diphenhydrAMINE (BENADRYL) injection Administer over 2 Minutes, Code/trauma/sedation medication, Starting on Debbie 01/10/21 at 0926 Given 01/10/2021 9:26 AM CDT 25 mg fentaNYL (SUBLIMAZE) preservative free injection intravenous, Code/trauma/sedation medication, Starting on Debbie 01/10/21 at 0909 Given 01/10/2021 9:43 AM CDT 50 mcg Given 01/10/2021 9:30 AM CDT 50 mcg Given 01/10/2021 9:20 AM CDT 50 mcg HYDROmorphone (DILAUDID) injection intravenous, Administer over 2 Minutes, Code/trauma/sedation medication, Starting on Debbie 01/10/21 at 1010, Indications: PainIndications:Pain Given 01/10/2021 10:10 AM CDT 0.5 mg lidocaine PF (XYLOCAINE) 10 mg/mL (1 %) preservative free injection Code/trauma/sedation medication, Starting on Debbie 01/10/21 at 0919, Intra-Procedure (IR), Indications: Administration of Local AnesthesiaIndications:Administration of Local Anesthesia Given 01/10/2021 9:19 AM CDT 10 mL midazolam (VERSED) 1 mg/mL preservative free injection intravenous, Administer over 2 Minutes, Code/trauma/sedation medication, Starting on Debbie 01/10/21 at 0909, Intra-Procedure (IR) Given 01/10/2021 9:43 AM CDT 1 m g Given 01/10/2021 9:26 AM CDT 1 mg Given 01/10/2021 9:20 AM CDT 1 mg ondansetron (ZOFRAN) injection Administer over 2 Minutes, Code/trauma/sedation medication, Starting on Debbie 01/10/21 at 0926 Given 01/10/2021 9:26 AM CDT 8 mg sodium chloride 0.9% flush 0.5-20 mL 0.5-20 mL, intra-catheter, Every 8 hours scheduled, First dose on Debbie 01/10/21 at 0830, Pre-Procedure (IR), Flush volume based on line type and size. sodium chloride 0.9% flush 0.5-20 mL 0.5-20 mL, intra-catheter, As needed, line care, Starting on Debbie 01/10/21 at 0759, Pre-Procedure (IR), Flush volume based on line type and size. Flush before and after each use. sodium chloride 0.9% flush 10-20 mL 10-20 mL, intra-catheter, As needed, line care, with each use, Starting on Debbie 01/10/21 at 0759, Pre-Procedure (IR), Flush volume based on line type, size, and protocol. sodium chloride 0.9% flush 5-10 mL 5-10 mL, intra-catheter, Every 12 hours scheduled, First dose on Debbie 01/10/21 at 0900, Pre-Procedure (IR), Flush volume based on line type, size, and protocol. sodium chloride 0.9% infusion 30 mL/hr, intravenous, Continuous, Starting on Debbie 01/10/21 at 0830, Pre-Procedure (IR) New Bag 01/10/2021 8:23 AM CDT 30 mL/hr 30 mL/hr documented in this encounter Active and Recently Administered Medications Times are shown in CDT. Scheduled Medication Order 01/08/2021 01/09/2021 01/10/2021 sodium chloride 0.9% flush 0.5-20 mL 0.5-20 mL, intra-catheter, Every 8 hours scheduled, First dose on Debbie 01/10/21 at 0830, Pre-Procedure (IR), Flush volume based on line type and size. 0830 (Due) sodium chloride 0.9% flush 5-10 mL 5-10 mL, intra-catheter, Every 12 hours scheduled, First dose on Debbie 01/10/21 at 0900, Pre-Procedure (IR), Flush volume based on line type, size, and protocol. 0900 (Due) Continuous Medication Order 01/08/2021 01/09/2021 01/10/2021 sodium chloride 0.9% infusion 30 mL/hr, intravenous, Continuous, Starting on Debbie 01/10/21 at 0830, Pre-Procedure (IR) 0814 (Due)0823 (New Bag - Provider: Mini Eddy RN) PRN Medication Order 01/08/2021 01/09/2021 01/10/2021 diphenhydrAMINE (BENADRYL) injection (COMPLETED) Administer over 2 Minutes, Code/trauma/sedation medication, Starting on Debbie 01/10/21 at 0926 0926 (Given - Provid er: Tanner Darby RN) fentaNYL (SUBLIMAZE) preservative free injection (COMPLETED) intravenous, Code/trauma/sedation medication, Starting on Debbie 01/10/21 at 0909 0909 (Given - Provid er: Tanner Darby RN)0920 (Given - Provider: Tanner Darby RN)0930 (Given - Provider: Tanner Darby RN)0943 (Given - Provider: Tanner Darby, RN) HYDROmorphone (DILAUDID) injection (COMPLETED) intravenous, Administer over 2 Minutes, Code/trauma/sedation medication, Starting on Debbie 01/10/21 at 1010, Indications: Pain 1010 (Given - Provid er: Tanner Darby RN) lidocaine PF (XYLOCAINE) 10 mg/mL (1 %) preservative free injection (COMPLETED) Code/trauma/sedation medication, Starting on Debbie 01/10/21 at 0919, Intra-Procedure (IR), Indications: Administration of Local Anesthesia 0919 (Given - Provid er: Rosario Cabrera MD) midazolam (VERSED) 1 mg/mL preservative free injection (COMPLETED) intravenous, Administer over 2 Minutes, Code/trauma/sedation medication, Starting on Debbie 01/10/21 at 0909, Intra-Procedure (IR) 0909 (Given - Provid er: Tanner Darby RN)0920 (Given - Provider: Tanner Darby RN)0926 (Given - Provider: Tanner Darby RN)0943 (Given - Provider: Tanner Darby, RN) ondansetron (ZOFRAN) injection (COMPLETED) Administer over 2 Minutes, Code/trauma/sedation medication, Starting on Debbie 01/10/21 at 0926 0926 (Given - Provid er: Tanner Darby RN) sodium chloride 0.9% flush 0.5-20 mL 0.5-20 mL, intra-catheter, As needed, line care, Starting on Debbie 01/10/21 at 0759, Pre-Procedure (IR), Flush volume based on line type and size. Flush before and after each use. sodium chloride 0.9% flush 10-20 mL 10-20 mL, intra-catheter, As needed, line care, with each use, Starting on Debbie 01/10/21 at 0759, Pre-Procedure (IR), Flush volume based on line type, size, and protocol. documented in this encounter Orders Medications Ordered That Ronnie ht Not Have Been Administered Count Last Ordered Date First Ordered Date sodium chloride 0.9% flush 0.5-20 mL 2 01/2021 sodium chloride 0.9% flush 10-20 mL 1 01/10 sodium chloride 0.9% flush 5-10 mL 1 2020 documented in this encounter Care Teams Golf Course Designer Relationship Specialty Start Date End Date Braydon Pavon PA [address] [place] [address] PCP - General Family Practice 05/09/20 05/19/21 Nikolay Lancaster MD [address] [place] [address] 05/09/20 05/19/21 documented as of this encounter
--- OUTSIDE RECORDS SUMMARY | 2024-04-19 23:07 | XMS_ITS | Encounter Summary ---
Author Organization [facility] Healthcare Address [address] [place] [address] Care Team Providers Care Newcomer Hostess Name Role Phone Nacho Rodriguez MD Unavailable [phone] Elian Gross MD Unavailable Braydon Pavon Primary Care Provider [phone] Encounter Details Date Type Department Care Team (Late st Contact Info) Description 08/23/2021 8:00 AM CDT Anesthesia Event [facility] End[facility] [address] [place] [address] Bismark Edwards MD [address] [place] [address] Anesthesia Record Procedure Summary Procedure Name Responsible Anesthesiologist Anesthesia Start Time Anesthesia Stop Time COLONOSCOPY (Colon) Events Date Time Event Comment 08/23/2021 0705 AN Equip Check Meds Name Total sodium chloride 0.9% infusion 0 mL * Agents No agents on file. * Blood No blood administrations on file. Lines, Drains, and Airways No LDAs on file. 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 Anesthesia Evaluation Camilo Curry is a 50 y.o. male Procedure(s): COLONOSCOPY Pre-Op Diagnosis Codes: * Screen for colon cancer [Z12.11] Patient Active Problem List Diagnosis ??? RUQ pain ??? 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 History of upper gastrointestinal hemorrhage ??? Nausea vomiting and diarrhea ??? High risk medication use ??? Diabetes mellitus, type 2 (HCC) ??? Bacterial endocarditis ??? Other chest pain ??? Morbid obesity with body mass index (BMI) of 40.0 to 44.9 in adult (HCC) ??? Dyspnea on exertion ??? Diabetic neuropathy associated with type 2 diabetes mellitus (CMS/HCC) (HCC) ??? Vitamin D deficiency ??? Screen for colon cancer ??? Abnormal finding on liver function ??? Biliary colic ??? 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-sided sciatica ??? Esophageal varices (HCC) ??? Essential hypertension ??? Gallstones ??? Hepatic encephalopathy (CMS/HCC) (HCC) ??? Lumbar degenerative disc disease ??? Morbid obesity (CMS/HCC) (HCC) ??? BLAND (nonalcoholic steatohepatitis) ??? TRACY (obstructive sleep apnea) ??? S/P TIPS (transjugular intrahepatic portosystemic shunt) ??? Sacroiliac joint dysfunction of both sides ??? Thrombocytopenia (CMS/HCC) (HCC) ??? Encounter for medical examination to establish care Past Medical History: Diagnosis Date ??? DM [...] N/A 11/23/2015 ??? TIPS REVISION N/A 01/10/2021 Allergies Allergen Reactions ??? Azactam [Aztreonam] Shortness [...] Sulfa (Sulfonamide Antibiotics) Hives ??? Nisoldipine Unknown Med List Status: Nurse Complete Set By: Marina Mcconnell RN at 08/23/2021 7:17 AM Taking? Last Dose Start Date End Date Provider acetaminophen-codeine (TYLENOL with CODEINE #3) 300-30 mg per tablet -- -- Tyler Page MD Notes: Not taking ALPRAZolam (XANAX) 1 mg tablet Past Month 03/29/21 -- Tyler Page MD BD Ultra-Fine Short Pen Needle 31 gauge x 09/16 needle 11/07/20 -- Nacho Rodriguez MD Inject 1 each under the skin daily To be used with the victoza cyclobenzaprine (FLEXERIL) 5 mg tablet 11/09/20 -- Tyler Page MD Notes: Not taking Dexcom G6 Door Puller misc 05/21/21 -- Nacho Rodriguez MD 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 Use to check blood sugar. Dexcom G6 Sensor device 05/21/21 -- Nacho Rodriguez MD 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 Change sensor every 10 days. Dexcom G6 Transmitter device 05/21/21 -- Nacho Rodriguez MD 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 Change transmitter every 90 days. ferrous sulfate 325 mg (65 mg of elemental iron) tablet 05/22/21 05/22/22 Simon Lundberg MD Take 1 tablet (325 mg total) by mouth daily with breakfast Notes: Not taking HUMULIN R U-500, CONC, KWIKPEN 500 unit/mL (3 mL) CONCENTRATED injection 08/22/2021 01/02/18 -- Tyler Page MD hydroCHLOROthiazide (HYDRODIURIL) 25 mg tablet -- -- Tyler Page MD Notes: Not taking lactulose solution 10 gram/15mL Past Week 09/10/15 -- Tyler Page MD omeprazole (PriLOSEC) 20 mg capsule Past Week 09/10/15 -- Tyler Page MD ondansetron (ZOFRAN) 4 mg tablet Past Week 09/10/15 -- Tyler Page MD ONETOUCH ULTRA BLUE TEST STRIP strip 01/05/18 -- Tyler Page MD PROVENTIL HFA 90 mcg/actuation inhaler Past Week 01/14/18 -- Tyler Page MD rifAXIMin (XIFAXAN) 550 mg tablet 08/30/20 -- Elian Gross MD Take 1 tablet (550 mg total) by mouth 2 (two) times a day Notes: Not taking semaglutide (Ozempic) 1 mg/dose (2 mg/1.5 mL) pen injector injection 11/07/20 -- Nacho Rodriguez MD Inject 1 mg under the skin every 7 days Sample Lot [id number] Exp 03/03/2023 x 2 pens Notes: Not taking sildenafiL (VIAGRA) 50 mg tablet 05/23/21 05/23/22 Simon Lundberg MD Take 1 tablet (50 mg total) by mouth daily as needed for erectile dysfunction traMADoL (ULTRAM) 50 mg tablet Past Week 06/06/21 -- Simon Lundberg MD Take 1 tablet (50 mg total) by mouth every 8 (eight) hours as needed for pain Victoza 3-Anatoliy 0.6 mg/0.1 mL (18 mg/3 mL) injection 07/03/21 -- Nacho Rodriguez MD INJECT 1.8 MG UNDER THE SKIN DAILY Current Facility-Administered Medications: ??? famotidine (PEPCID) injection 20 mg, 20 mg, intravenous, Once ??? insulin regular (HumuLIN R, NovoLIN R) 100 unit/mL injection 8 Units, 8 Units, intravenous, Once AND POCT glucose, , , Once AND POCT glucose, , , Once ??? metoclopramide (REGLAN) injection 10 mg, 10 mg, intravenous, Once ??? ondansetron (ZOFRAN) injection 4 mg, 4 mg, intravenous, Q6H PRN ??? ondansetron (ZOFRAN) injection 4 mg, 4 mg, intravenous, Once ??? sodium chloride 0.9% flush 0.5-20 mL, 0.5-20 mL, intra-catheter, PRN ??? sodium chloride 0.9% flush 0.5-20 mL, 0.5-20 mL, intra-catheter, Q8H JOHN ??? sodium chloride 0.9% flush 0.5-20 mL, 0.5-20 mL, intra-catheter, PRN ??? sodium chloride 0.9% infusion, 30 mL/hr, intravenous, Continuous ??? sodium chloride 0.9% infusion, 30 mL/hr, intravenous, Continuous Social History Tobacco Use Smoking Status Former Smoker ??? Quit date: 2002 ??? Years since quittin.3 Smokeless Tobacco Never Used Substance and Sexual Activity Alcohol Use No Substance and Sexual Activity Drug Use Not Currently ??? Types: Cocaine, Methamphetamines Comment: quit 1997 Family History Problem Relation Age of Onset [...] - Relation: Grandmother (Added by TW Conv) Vitals: 08/23/21 0725 08/23/21 0730 08/23/21 0735 BP: 150/74 144/76 153/73 Pulse: 91 86 89 Resp: 19 19 18 Temp: SpO2: 97% 95% 94% PT: No results found for requested labs within last 720 hours. INR: No results found for requested labs within last 720 hours. APTT: No results found for requested labs within last 720 hours. Hgb A1C: No results found for requested labs within last 720 hours. CBC RBC: No results found for requested labs within last 720 hours. RDW: No results found for requested labs within last 720 hours. MCHC: No results found for requested labs within last 720 hours. MCH: No results found for requested labs within last 720 hours. MCV: No results found for requested labs within last 720 hours. Hct: No results found for requested labs within last 720 hours. Hgb: No results found for requested labs within last 720 hours. WBC: No results found for requested labs within last 720 hours. MPV: No results found for requested labs within last 720 hours. Platelets: No results found for requested labs within last 720 hours. RDW CV: No results found for requested labs within last 720 hours. RDW Sd: No results found for requested labs within last 720 hours. BMP Glucose: 08/23/2021: 344 mg/dL (H) Calcium: No results found for requested labs within last 720 hours. Sodium: No results found for requested labs within last 720 hours. Potassium: No results found for requested labs within last 720 hours. CO2: No results found for requested labs within last 720 hours. Chloride: No results found for requested labs within last 720 hours. BUN: No results found for requested labs within last 720 hours. Creatinine: No results found for requested labs within last 720 hours. DOS Physical Exam Medical history, medications, and allergies reviewed. Attestation: This PAT evaluation Airway Exam: Mallampati: III Cervical ROM: FROM Cardiovascular Exam: Rate: regular Rhythm: regular Pulmonary Exam: LCTA, bilat Anesthesia Plan ASA 3 My patient is approved for the Anesthesia Controlled Medication protocol when under care of a SUPERVISOR LENS GENERATING Planned anesthesia: General Informed Consent: Anesthesia plan and risks discussed with patient. Plan and Consent Comments: AODM POC glu 344(pt state he runs 250-350 at home); POC glu down to 298, however pt experienced probable dysphoric reaction to Reglan and demands to be dioscharged; explained nature of drug response and also explained to , but pt insists on leaving; encouraged to start PO food/drink, resume diabetes management at home Consent and Attending signature: I and/or my designee have discussed the anesthesia plan, benefits, possible alternatives, parental presence at time of induction (if indicated), and clinically relevant risks that may include dental injury, unintentional awareness, and/or other complications. The patient and/or parent/legal guardian understand, and agree to proceed. All questions answered. documented in this encounter Plan of Treatment Not on file documented as of this encounter Visit Diagnoses Not on filedocumented in this encounter Care Teams Newcomer Hostess Relationship Specialty Start Date End Date Braydon Pavon PA [address] [place] [address] PCP - General 08/23/21 [place] [id number] [address] [address] Consulting Physician Endocrinology 05/20/21 [place] [address] [address] [facility] [address], [place] [address] Consulting Physician Internal Medicine 05/20/21 documented as of this encounter
--- OUTSIDE RECORDS SUMMARY | 2024-04-19 23:08 | XMS_ITS | Encounter Summary ---
Author Organization [facility] Address [address] [place] [address] Care Team Providers Care Plane Runner Name Role Phone Braydon Pavon Primary Care Provider [phone] Nikolay Lancaster MD Unavailable [phone] Encounter Details Date Type Department Care Team (Late st Contact Info) Description 05/16/2020 Telephone [facility] [address] [place] [address] Fili Peacock MD [address] [place] [address] [address] [place] [address] Social History Tobacco Use Types Packs/Day Years Used Date Smoking Tobacco: Former Smokeless Tobacco: Never Alcohol Use Standard Drinks/Week Comments No 0 (1 standard drink = 0.6 oz pur e alcohol) Sex and Gender Information Value Date Recorded Sex Assigned at Not on file 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 UNT ADMINISTRATOR * Telephone Encounter - Mia Matta - 05/16/2020 1:35 PM CST FLOOR GRINDER uncontrolled DM2 Schedule with Madonna PLEITEZ 05/16/20 UNT ADMINISTRATOR documented in this encounter Plan of Treatment Not on file documented as of this encounter Visit Diagnoses Not on filedocumented in this encounter Care Teams Plane Runner Relationship Specialty Start Date End Date Braydon Pavon PA [address] [place] [address] PCP - General Family Practice 05/09/20 05/19/21 Nikolay Lancaster MD [address] [place] [address] 05/09/20 05/19/21 documented as of this encounter
--- OUTSIDE RECORDS SUMMARY | 2024-04-19 23:08 | XMS_ITS | Encounter Summary ---
Author Organization [facility] Address [address] [place] [address] Phone Care Team Providers Care Cloth Spreader Screen Printing Name Role Phone Braydon Pavon Primary Care Provider [phone] Nikolay Lancaster MD Unavailable [phone] Reason for Visit * Reason Onset Date Comments Cardiac Clearance for EGD/Colon 09/06/2020 Encounter Details Date Type Department Care Team (Late st Contact Info) Description 09/06/2020 Telephone [facility] Gastroenterology [address] 8th [place] [address] [place] [address] Faith Sweet Cardiac Clearance for EGD/Colon Social History Tobacco Use Types Packs/Day Years Used Date Smoking Tobacco: Former Smokeless Tobacco: Never Alcohol Use Standard Drinks/Week Comments No 0 (1 standard drink = 0.6 oz pur e alcohol) AUDIT-C Answer Date Recorded Q1: How often do you have a drink containing alc ohol? 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 Gender Identity Male 10/29/2020 12:37 PM CDT Sexual Orientation Straight 10/29/2020 12 :37 PM CDT documented as of this encounter Ordered Prescriptions Prescription Sig Dispense Quantity Refills Last Filled Start Date End Date polyethylene glycol (GoLYTELY) 236-22.74-6.74 -5.86 gram solutionIndications :bowel preparation Take 4,000 mL by mouth once for 1 dose 4000 mL 11/01/2020 10/18/2020 documented in this encounter Miscellaneous Notes * Addendum Note - Faith Sweet - 10/16/2020 2:34 PM CDTAddended by: FAITH SWEET on: 10/16/2020 02:34 PM Modules accepted: Orders * Addendum Note - Faith Sweet - 10/16/2020 2:24 PM CDTAddended by: FAITH SWEET on: 10/16/2020 02:24 PM Modules accepted: Orders * Telephone Encounter - Faith Sweet - 10/16/2020 2:22 PM CDT I spoke with Camilo, he is ready to schedule his EGD/Colonscopy. I offered him 11/02/[address] Estrada at [facility]. He accepted. We discussed his prep and the need for a mechanic driver. He is diabetic andwill hold his AM dose of medication on the day of the procedure. I sent the bowel prep script to [facility] in [place] and I am mailing him prep instructions. He denies any recent covid symptoms or exposures and will contact the office if this changes. * Telephone Encounter - Zara Aguilar BS - 09/11/2020 11:59 AM CDT Received a call from Verónica at sharepoint net developer office stating that patient is at no increase cardiac risk and that there was a clearance note in Epic. * Telephone Encounter - Faith Sweet - 09/06/2020 2:48 PM CDT I spoke with Camilo and confirmed his sharepoint net developer is Timothy Peterson at [facility]. He states he was treatedfor chest pain and Bacterial Endocarditis. He was treated fora month with IV AB and believes the infection has cleared up. I discussed with him that we need medical clearance to ensure it is safe to do the procedure and he may need to undergo a CPAP assessment with our anesthesiologist. Camilo mentioned he will need to schedule out a bit due to a groin abscess and allergies. He is aware once I receive information from Cardiology, I will f/u to schedule. I called Dr. Peterson's office and left a message with the leak patcher who is sending my message to the doctor for recommendations. The leak patcher did mention, Camilo was seen in May and Dr. Peterson ordered a Echo and a stress test for further evaluation. Camilo no showed both appointments and has not rescheduled. The leak patcher does not believe Dr. Peterson will offer clearance with out the completion of his workup. I will await a call back from his office. ----- Message from Brianna Vázquez LPN sent at 08/30/2020 4:45 PM CDT ----- Regarding: EGD MG pt, Can he be scheduled for EGD and colonoscopy, not urgent. He does need to be cleared by cardiology, he was seen in May by them for chest pain. Thank you documented in this encounter Plan of Treatment Not on file documented as of this encounter Visit Diagnoses Diagnosis Hepatic cirrhosis, unspecified hepatic cirrhosis type, unspecified whether ascites present (HCC)- Primary documented in this encounter Orders Case Request Count Last Ordered Date First Orde red Date CASE REQUEST GI 1 10/16/2020 documented in this encounter Care Teams Cloth Spreader Screen Printing Relationship Specialty Start Date End Date Braydon Pavon PA [address] [place] [address] PCP - General Family Practice 05/09/20 05/19/21 Nikolay Lancaster MD [address] [place] [address] 05/09/20 05/19/21 documented as of this encounter
--- OUTSIDE RECORDS SUMMARY | 2024-04-19 23:08 | XMS_ITS | Encounter Summary ---
Author Organization [facility] Address [address] [place] [address] Care Team Providers Care Cad Developer Name Role Phone Nikolay Lancaster MD Primary Care Provider Kris Soto MD Unavailable Encounter Details Date Type Department Care Team (Late st Contact Info) Description 10/27/2018 8:02 PM CDT - 10/28/2018 12:52 AM CDT Hospital Encounter [address] [id number] Unknown, Ector Grijalva MD [address] [place] [id number] Discharge Disposition: Discharge to home or self care Social History Tobacco Use Types Packs/Day Years Used Date Smoking Tobacco: Never Assessed Sex and Gender Information Value Date Recorded Sex Assigned at Not on file 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 Gender Identity Male 10/29/2020 12:37 PM CDT Sexual Orientation Straight 10/29/2020 12 :37 PM CDT documented as of this encounter Last Filed Vital Signs Vital Sign Reading Time Taken Comments Blood Pressure 127/86 10/27/2018 8:10 PM CDT Pulse 69 10/27/2018 8:10 PM CDT Temperature 36.7 ??C (98.1 ??F) 10/27/2018 8:10 PM CD T Respiratory Rate - - Oxygen Saturation 98% 10/27/2018 8:10 PM CDT Inhaled Oxygen Concentration - - Weight 122 kg (268 lb 15.4 oz) 10/27/2018 8:10 P M CDT Height 172.7 cm (5' 8 ) 10/27/2018 8:10 PM CDT Body Mass Index 40.9 10/27/2018 8:10 PM CDT documented in this encounter Medications at Time of Discharge HUMULIN R U-500, CONC, KWIKPEN 500 unit/mL (3 mL) CONCENTRATED injection 01/02/2018 lactulose solution 10 gram/15mL TAKE 30MLS BY MOUTH FOUR TIMES A DAY NEEDED 09/10/2015 ONETOUCH ULTRA BLUE TEST STRIP strip 01/05/2018 ALPRAZolam (XANAX) 0.5 mg tablet Take 0.5 mg by mouth as needed for anxiety. 1 ALPRAZolam (XANAX) 0.5 mg tablet TAKE 1 TABLET TWICE DAILY NEEDED. 09/10/2015 2 BD ULTRA-FINE SHORT PEN NEEDLE 31 gauge x 5/16 needle 01/02/2018 1 busPIRone (BUSPAR) 10 mg tabletIndications: Generalized Anxiety Disorder 02/11/2018 05/09/19 2 1 ergocalciferol (VITAMIN D) 50,000 unit capsule once a week. 07/07/2017 1 hepatitis A and B (TWINRIX, PF,) 720 Nydia unit -20 mcg/mL suspensionIndicati ons:Hepatitis B Prevention,Viral Hepatitis A Prevention Inject into the muscle as instructed. 09/20/2015 1 HYDROcodone-acetam inophen (NORCO) 10-325 mg per tabletIndications: Pain as directed for pain prn 09/10/2015 1 insulin regular U-500 (HumuLIN R U-500) 500 unit/mL CONCENTRATED injectionIndicatio ns:Diabetes Mellitus with Severe Insulin Resistance Inject 150 Units under the skin 3 (three) times a day before meals. 1 lactulose solution 10 gram/15mL 1 omeprazole (PriLOSEC) 20 mg capsule Take 20 mg by mouth daily. 1 omeprazole (PriLOSEC) 20 mg capsule 2 times daily. 09/10/2015 4 ondansetron (ZOFRAN) 4 mg tablet Take 4 mg by mouth every 8 (eight) hours as needed for nausea or vomiting. 1 ondansetron (ZOFRAN) 4 mg tablet take 1 tab every 8 hours prn nausea and vomitting 09/10/2015 4 ONETOUCH DELICA LANCETS 30 gauge misc 11/02/2017 1 PROVENTIL HFA 90 mcg/actuation inhaler 01/14/2018 4 rifAXIMin (XIFAXAN) 550 mg tablet Take 550 mg by mouth. 1 rifAXIMin (XIFAXAN) 550 mg tablet 2 times daily. 01/21/2016 1 traMADol (ULTRAM) 50 mg tablet TAKE 1 TABLET 3 TIMES DAILY NEEDED. 12/08/2016 2 UNKNOWN TO PATIENT Humalog U 500 150 units bid 100-150 units hs 1 documented as of this encounter Discharge Disposition Disposition Code Departure Means Destination Discharge to home or self care documented in this encounter Plan of Treatment Not on file documented as of this encounter Procedures Procedure Name Priority Date/Time Associated Diagnosis Comments B ABO / RH CONFIRMATION TESTING Routine 10/27/2018 10:36 PM CDT ANTIBODY SCREEN Routine 10/27/2018 10:17 PM CDT TYPE AND SCREEN Routine 10/27/2018 10:17 PM CDT AMMONIA Routine 10/27/2018 10:17 PM CDT ETHANOL Routine 10/27/2018 10:17 PM CDT CBC WITH AUTO DIFFERENTIAL Routine 10/27/2018 8:57 PM CDT APTT Routine 10/27/2018 8:57 PM CDT PROTIME-INR Routine 10/27/2018 8:57 PM CDT LIPASE Routine 10/27/2018 8:57 PM CDT COMPREHENSIVE METABOLIC PANEL Routine 10/27/2018 8:[address] ABDOMEN PELVIS WO CONTRAST 10/27/2018 12:00 AM CDT documented in this encounter Results * ABO / Rh Confirmation Testing (10/27/2018 10:36 PM CDT) Blood Type Confirm AP [facility] 10/27/2018 10:3 6 PM CDT 10/27/2018 10:37 PM CDT Narrative Resulting Agency Comment ER us Ector Bermudez MD LAB BLOOD ORDERABLES Final Result Performing Organization Address City/[facility]/ZIP Co de Phone Number [address] [phone] * Antibody screen (10/27/2018 10:17 PM CDT) Antibody Screen NEGATIVE [facility] 10/27/2018 10:1 7 PM CDT 10/27/2018 10:28 PM CDT Narrative Resulting Agency Comment ER us Ector Bermudez MD LAB BLOOD BANK TEST O RDERABLES Final Result Performing Organization Address City/[facility]/[place] [address], [facility] [phone] * Type and screen (10/27/2018 10:17 PM CDT) Blood Type AP [facility] 10/27/2018 10:1 7 PM CDT 10/27/2018 10:28 PM CDT Narrative [facility] - 10/27/2018 11:10 PM CDT N Resulting Agency Comment ER us Ector Bermudez MD LAB BLOOD BANK TEST O RDERABLES Final Result [address] [phone] * Ammonia (10/27/2018 10:17 PM CDT) AMMONIA 73 27 - 102 ug/dL [facility] 10/27/2018 10:1 7 PM CDT 10/27/2018 10:27 PM CDT Narrative Resulting Agency Comment ER Ector Bermudez MD LAB BLOOD ORDERABLES Final Result Performing Organization Address City/[facility]/ZIP Co de Phone Number [address] [phone] * Ethanol (10/27/2018 10:17 PM CDT) Ethyl Alcohol <10 mg/dL [facility] Comment: % = mg/dL x .001 10/27/2018 10:1 7 PM CDT 10/27/2018 10:28 PM CDT Narrative Resulting Agency Comment ER Ector Bermudez MD LAB BLOOD ORDERABLES Final Result Performing Organization Address City/[facility]/ZIP Co de Phone Number [address] [phone] * (ABNORMAL) Lipase (10/27/2018 8:57 PM CDT) Lipase 76(H) 13 - 60 U/L [facility] 10/27/2018 8:57 PM CDT 10/27/2018 9:01 PM CDT Narrative Resulting Agency Comment ER Sukhwinder [facility] LAB BLOOD ORDERABLES Final Result Performing Organization Address City/[facility]/ZIP Co de Phone Number [address] [phone] * (ABNORMAL) Comprehensive metabolic panel (10/27/2018 8:57 PM CDT) Sodium 137 135 - 145 mmol/L [facility] Potassium 3.8 3.3 - 5.1 mmol/L [facility] Chloride 99 96 - 108 mmol/L [facility] Carbon Dioxide 28 22 - 32 mmol/L [facility] Anion Gap 10 7 - 16 [facility] Glucose 296(H) 70 - 100 mg/dL [facility] BUN 11 8 - 25 mg/dL [facility] Creatinine 0.7 0.5 - 1.3 mg/dL [facility] Comment: NOTE: Estimated GFR (Cockroft-Gault) will NOT be calculated unless patient Height and Weight were entered. Also, Kidney Disease Stage (GFR) and Estimated GFR (Cockroft-Gault) will NOT be calculated if Creatinine result is <0.2. Kidney Disease Stage >90 mL/MIN [facility] Comment: NOTE; ??The GFR is an estimated value using the creatinine, sex, age, and race of the patient. THE Estimated Kidney Disease GFR is validated for AGES 18-70 YEARS STAGE ?mL/Min ?DESCRIPTION ??1 ?90 mL/min or more ?Normal or elevated GFR ??2 ? 60-89 mL/min ?Mildly decreased GFR ??3 ? 30-59 mL/min ?Moderately decreased GFR ??4 ? 15-29 mL/min ?Severely decreased GFR ??5 ? <15 mL/min ? Kidney failure or on dialysis Est GFR (Cockcroft-G) 164 ml/MIN [facility] Comment: Estimated GFR(Cockroft-Gault)is used to calculate patient medication dosage Calcium 10.0 8.6 - 10.3 mg/dL [facility] Total Protein 7.1 6.4 - 8.3 g/dL [facility] Albumin 3.8 3.5 - 5.0 g/dL [facility] Globulin 3.3 2.3 - 3.5 gm/dL [facility] Albumin/Globulin Ratio 1.2 1.1 - 1.8 [facility] Total Bilirubin 0.9 0.0 - 1.2 mg/dL [facility] AST 57(H) 0 - 40 U/L [facility] ALT 59(H) 0 - 41 U/L [facility] Alkaline Phosphatase 72 40 - 129 U/L [facility] 10/27/2018 8:57 PM CDT 10/27/2018 9:01 PM CDT Narrative Resulting Agency Comment ER Sukhwinder [facility] LAB BLOOD ORDERABLES Final Result [address] [phone] * aPTT (10/27/2018 8:57 PM CDT) APTT 29 26 - 33 SECONDS [facility] 10/27/2018 8:57 PM CDT 10/27/2018 9:01 PM CDT Narrative Resulting Agency Comment ER Sukhwinder [facility] LAB BLOOD ORDERABLES Final Result [address] [phone] * (ABNORMAL) Protime-INR (10/27/2018 8:57 PM CDT) PT 14.8(H) 11.8 - 14.5 SECONDS [facility] INR 1.15 [facility] Comment: Recommended Therapeutic range for Oral Anticoagulant Therapy No anti-coagulation therapy ? Normal Range: ?0.8-1.4 Anti-coagulation therapy ? Low intensity therapy ?2.0-3.0 ? High intensity therapy ?? 2.5-3.5 Critical Value ? Greater than or equal to 5.0 Patients should be monitored for serious bleeding. 10/27/2018 8:57 PM CDT 10/27/2018 9:01 PM CDT Narrative Resulting Agency Comment ER Sukhwinder [facility] LAB BLOOD ORDERABLES Final Result [facility] [address] [place] [address], [facility] [phone] * (ABNORMAL) CBC with auto differential (10/27/2018 8:57 PM CDT) WBC 3.7(L) 3.8 - 9.9 X10 3/ul [facility] RBC 5.12 4.30 - 5.80 x10 6/ul [facility] Hemoglobin 12.9(L) 13.0 - 17.5 g/dL [facility] Hct 41.1 38.9 - 50.3 % [facility] MCV 80.3(L) 81.3 - 96.4 fl [facility] MCH 25.2(L) 27.1 - 33.3 pg [facility] MCHC 31.4(L) 32.3 - 35.7 g/dl [facility] RDW 14.9 11.1 - 14.9 % [facility] Plt Count 75(L) 150 - 400 x10 3/ul [facility] MPV 11.0 9.1 - 12.3 fl [facility] Neut % 71.7 % [facility] Immature Gran % 0.3 % [facility] Lymph % 13.6 % [facility] [place]y % 11.7 % [facility] Eos % 2.2 % [facility] AUTO BASO % 0.5 % [facility] NEUTROPHIL ABS # 2.7 1.7 - 6.5 x10 3/ul [facility] Immature Gran # 0.0 0.0 - 0.1 x10 3/ul [facility] Absolute Lymphs (auto) 0.5(L) 0.8 - 3.3 x10 3/ul [facility] Absolute Monos (auto) 0.4 0.2 - 0.8 x10 3/ul [facility] Absolute Eos (auto) 0.1 0.0 - 0.5 x10 3/ul [facility] BASOPHIL ABS # 0.0 0.0 - 0.1 x10 3/ul [facility] Nucleat RBC Rel Count 0.0 #/100WBC [facility] NRBC abs 0.00 0.00 - 0.01 x10 3/ul [facility] Absolute Neutrophils 2,700 200 - 8,000 /ul [facility] 10/27/2018 8:57 PM CDT 10/27/2018 9:01 PM CDT Narrative Resulting Agency Comment ER Sukhwinder [facility] LAB BLOOD ORDERABLES Final Result [facility] [address] [phone] * CT Abdomen Pelvis WO Contrast (10/27/2018 12:00 AM CDT) Anatomical Region Laterality Modality Body N/A Computed Tomogra phy 10/28/2018 12:1 3 AM CDT Narrative 10/28/2018 12:23 AM CDT Patient Name: CAMILO CURRY ?Ordering Dr: Ector Bermudez MD ?? D.O.B: 1970 ? Exam Date: 10/27/18 ?? 0000 ?? Age: 48 ?Sex: Male ? MR#: [id number] ?? Loc: ? RADIOLOGY REPORT ?? Order #[id number] ?? CT Scan ? CT Abd/Pelvis WO IV Contrast ? Signed ?? EXAM DESCRIPTION: ??CT Abd/Pelvis WO IV Contrast ? REASON FOR STUDY: ??Epigastric pain, right upper quadrant pain, vomiting blood, ?? end stage renal disease, 2 day duration. ??Hepatic encephalopathy, esophageal ?? varices, duodenal ulcers, biliary colic. ? TECHNIQUE: ??CT scan of the abdomen and pelvis performed without intravenous ?? and without oral contrast using helical scanning technique. Reconstructed ?? coronal and sagittal MPR images reviewed. All images stored on PACS. ? Automated exposure control was used as a dose optimization technique for this ?? examination. ? COMPARISON: ??None ? FINDINGS: ?LOWER CHEST: Lung bases are clear. ??Heart size normal. ??No effusion. ? LIVER/BILIARY: Mildly cirrhotic contour. ??Tips catheter. ??Biliary tree normal ?? in caliber. ? GALLBLADDER: Normal. ? SPLEEN: Enlarged. ? PANCREAS: Normal. ? ADRENAL GLANDS: Normal. ? KIDNEYS/URINARY TRACT: Pelvic right kidney. ??No acute abnormality identified. ? GI: Esophageal varices. ??Stomach and small bowel appear normal. ??Small ?? noninflamed sigmoid diverticula. ??Normal appendix. ? OTHER ABDOMINAL/PELVIS: Major vascular structures are normal in caliber. ??No ?? enlarged lymph node or free fluid. ? MSK: Mild disc disease and facet arthropathy. ? IMPRESSION: ??No upper GI inflammation/obstruction or other acute abnormality ?? identified. ??Chronic findings as above. ? THIS IS AN ELECTRONICALLY VERIFIED FINAL REPORT ?? 10/28/2018 12:23 AM - Electronically signed by Arian Pressley M.D. ?? Arian Pressley M.D. ? [place] ?? D: ??10/28/2018 12:23 AM ?? T: ? Report ID: [id number] ?? Reading Location: ??[id number] ? REPORT ELECTRONICALLY SIGNED IN OTHER VENDOR SYSTEM ?? Resulting Agency Comment E Procedure Note Arian Pressley MD - 10/28/2018 Patient Name: Varsha CURRY Dr: Ector Bermudez MDOMendezB: 1970 Exam Date: 10/27/18 0000 Age: 48 Sex: Male MR#: [id number] Loc: RADIOLOGY REPORT Order #[id number] CT Scan CT Abd/Pelvis WO IV Contrast Signed EXAM DESCRIPTION: CT Abd/Pelvis WO IV Contrast REASON FOR STUDY: Epigastric pain, right upper quadrant pain, vomitingblood, end stage renal disease, 2 day duration. Hepatic encephalopathy,esophageal varices, duodenal ulcers, biliary colic. TECHNIQUE: CT scan of the abdomen and pelvis performed withoutintravenous and without oral contrast using helical scanning technique. Reconstructed coronal and sagittal MPR images reviewed. All images stored on PACS. Automated exposure control was used as a dose optimization technique forthis examination. COMPARISON: None FINDINGS: LOWER CHEST: Lung bases are clear. Heart size normal. No effusion. LIVER/BILIARY: Mildly cirrhotic contour. Tips catheter. Biliary treenormal in caliber. GALLBLADDER: Normal. SPLEEN: Enlarged. PANCREAS: Normal. ADRENAL GLANDS: Normal. KIDNEYS/URINARY TRACT: Pelvic right kidney. No acute abnormalityidentified. GI: Esophageal varices. Stomach and small bowel appear normal. Small noninflamed sigmoid diverticula. Normal appendix. OTHER ABDOMINAL/PELVIS: Major vascular structures are normal in caliber.No enlarged lymph node or free fluid. MSK: Mild disc disease and facet arthropathy. IMPRESSION: No upper GI inflammation/obstruction or other acuteabnormality identified. Chronic findings as above. THIS IS AN ELECTRONICALLY VERIFIED FINAL REPORT 10/28/2018 12:23 AM - Electronically signed by Arian Pressley M.D. [place] T: Report ID: [id number] Reading Location: [place] [address] REPORT ELECTRONICALLY SIGNED IN OTHER VENDOR SYSTEM Ector Bermudez MD IMG CT PROCEDURES Fin al Result documented in this encounter Visit Diagnoses Not on filedocumented in this encounter Care Teams Cad Developer Relationship Specialty Start Date End Date Nikolay Lancaster MD [address] [place] [address] [phone] PCP - General 10/27/18 05/08/20 Kris Soto MD [address] [place] [address] 10/27/18 05/08/20 documented as of this encounter
--- OUTSIDE RECORDS SUMMARY | 2024-04-19 23:08 | XMS_ITS | Encounter Summary ---
Author Organization [facility] Healthcare Address [address] [place] [address] Care Team Providers Care Pit Clerk Name Role Phone Braydon Pavon Primary Care Provider [phone] Nikolay Lancaster MD Unavailable [phone] Encounter Details Date Type Department Care Team (Late st Contact Info) Description 12/17/2020 10:15 AM CDT - 12/17/2020 11:[address] [facility] Endoscopy [address] [place] [address] Elian Gross MD [address] [address] ESOPHAGOGASTRODUODENOSCOPY Surgery Details Date/Time Status Location OR Service Patient Class Case Class Case Type Trauma Case? 12/17/2020 10:[address] 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 Gender Identity Male 10/29/2020 12:37 PM CDT Sexual Orientation Straight 10/29/2020 12 :37 PM CDT documented as of this encounter Last Filed Vital Signs Vital Sign Reading Time Taken Comments Blood Pressure 153/91 12/17/2020 11:15 AM CDT Pulse 100 12/17/2020 11:15 AM CDT Temperature 36.1 ??C (97 ??F) 12/17/2020 10:43 AM CDT Respiratory Rate 11 12/17/2020 11:15 AM CDT Oxygen Saturation 95% 12/17/2020 11:15 AM CDT Inhaled Oxygen Concentration - - Weight 117.9 kg (260 lb) 12/17/2020 9:07 AM CDT Height 172.7 cm (5' 8 ) 12/17/2020 9:07 AM CDT Body Mass Index 39.53 12/17/2020 9:07 AM CDT documented in this encounter Discharge Instructions * Attachments The following attachments cannot be sent through Care Everywhere. * Procedural Sedation (AfterCare(R) Instructions(ER/ED)) (Citizen [place]) documented in this encounter Medications at Time [...] hyperglycemia, with long-term current use of insulin ([facility]) One sensor every 14 days 6 kit [...] the skin every 7 days Sample Lot [id number] Exp 03/03/2023 x 2 pens 2 pen 11/07/2020 2 traMADol (ULTRAM) 50 mg tablet TAKE 1 TABLET 3 TIMES DAILY NEEDED. 12/08/2016 2 valACYclovir (VALTREX) 1 gram tablet 11/19/2020 2 documented as of this encounter Discharge Disposition Disposition Code Departure Means Destination Discharge to home or self care documented in this encounter H&P Notes * Elian Gross MD - 12/17/2020 9:22 AM CDT Pre Endoscopy History and Physical Camilo Curry is a 50 y.o. male who is here for Procedure(s): ESOPHAGOGASTRODUODENOSCOPY COLONOSCOPY The indication(s) for the procedure(s): chronic anemia, s/p TIPS, morbid obesity, plan for EGD and colonoscopy. Past Medical History: Diagnosis Date ??? DM type 2 (diabetes mellitus, type 2) (HCC) dx 2011 ??? Gallbladder calculus ??? GAVE (gastric antral vascular ectasia) ??? Heart murmur ??? Heart valve disease ??? BLAND (nonalcoholic steatohepatitis) Past Surgical History: Procedure Laterality Date ??? ESOPHAGEAL VARICE LIGATION ??? TIPS INITIAL N/A 11/23/2015 Social History Tobacco Use ??? Smoking status: Former Smoker ??? Smokeless tobacco: Never Used Substance Use [...] [Esomeprazole Magnesium] Hives ??? Penicillin Hives ??? Sulfa (Sulfonamide Antibiotics) Hives ??? Nisoldipine Unknown ??? Prochlorperazine Unknown Poss. hives w/IV dose Prior to Admission medications Medication Sig Start Date End Date Taking? Authorizing Provider acetaminophen-codeine (TYLENOL with CODEINE #3) 300-30 mg per tablet Take 1 tablet by mouth every 4(four) hours as needed for pain Tyler Page MD ALPRAZolam (XANAX) 0.5 mg tablet TAKE 1 TABLET TWICE DAILY NEEDED. 09/10/15 Tyler Page MD amitriptyline (ELAVIL) 25 mg tablet 11/16/20 Tyler Page MD BD Ultra-Fine Short Pen Needle 31 gauge x 09/16 needle Inject 1 each under the skin daily To be used with the victoza 11/07/20 Nacho Rodriguez MD clindamycin (CLINDAGEL) 1 % gel 11/20/20 Tyler Page MD qljdvfw-jyipZODzsjk-zujivojzxsihtqy (Virtussin DAC) 2-20-6 mg/mL syrup every 6 (six) hours Tyler Page MD cyclobenzaprine (FLEXERIL) 5 mg tablet 11/09/20 Tyler Page MD FreeStyle Elijah 2 Sensor kit One sensor every 14 days 10/29/20 Nacho Rodriguez MD gabapentin (NEURONTIN) 600 mg tablet Take 1 tablet (600 mg total) by mouth 3 (three) times a day 10/29/20 10/29/21 Nacho Rodriguez MD HUMULIN R U-500, CONC, KWIKPEN 500 unit/mL (3 mL) CONCENTRATED injection 01/02/18 Tyler Page MD hydroCHLOROthiazide (HYDRODIURIL) 25 mg tablet Take 25 mg by mouth daily Tyler Page MD ketoconazole (NIZORAL) 2 % cream 11/20/20 Tyler Page MD lactulose solution 10 gram/15mL TAKE 30MLS BY MOUTH FOUR TIMES A DAY NEEDED 09/10/15 Tyler Page MD lidocaine (LIDODERM) 5 % 11/12/20 Tyler Page MD lidocaine (XYLOCAINE) 5 % ointment 11/16/20 Tyler Page MD liraglutide (Victoza 3-Anatoliy) 0.6 mg/0.1 mL (18 mg/3 mL) injection Inject 1.8 mg under the skin dailyIndications: type 2 diabetes mellitus 11/07/20 Nacho Rodriguez MD omeprazole (PriLOSEC) 20 mg capsule 2 times daily. 09/10/15 Tyler Page MD ondansetron (ZOFRAN) 4 mg tablet take 1 tab every 8 hours prn nausea and vomitting 09/10/15 Tyler Page MD ONETOUCH ULTRA BLUE TEST STRIP strip 01/05/18 Tyler Page MD PROVENTIL HFA 90 mcg/actuation inhaler 01/14/18 Tyler Page MD rifAXIMin (XIFAXAN) 550 mg tablet Take 1 tablet (550 mg total) by mouth 2 (two) times a day 08/30/20Elian Gross MD semaglutide (Ozempic) 1 mg/dose (2 mg/1.5 mL) pen injector injection Inject 1 mg under the skin every 7 days Sample Lot [id number] Exp 03/03/2023 x 2 pens 11/07/20 Nacho Rodriguez MD traMADol (ULTRAM) 50 mg tablet TAKE 1 TABLET 3 TIMES DAILY NEEDED. 12/08/16 Tyler Page MD valACYclovir (VALTREX) 1 gram tablet 11/19/20 Tyler Page MD Review of Systems A pertinent, focused review of systems was completed and negative, except as noted above. OBJECTIVE: Vitals: Vitals: 12/17/20 0907 Temp: 36.4 ??C (97.5 ??F) Weight: 117.9 kg (260 lb) Height: 172.7 cm (5' 8 ) Physical Exam: Airway: No significant abnormality. Cardiac: [...] reasons stated above. documented in this encounter Procedure Notes * Elian Gross MD - 12/17/2020 10:24 AM CDTAssociated Order(s): COLONOSCOPY ENDOSCOPY LAB Patient Name: Camilo Curry Procedure Date: 12/17/2020 10:24 AM Date of : 1970 Admit Type: Outpatient Age: 50 Gender: Male Attending MD: Elian Draper M.D. Room: [facility] ENDOSCOPY ROOM 02 Note Status: Finalized Procedure: Colonoscopy Indications: Unexplained iron deficiency anemia Providers: Elian Draper M.D. Referring MD: Elian Draper M.D. Medicines: General Anesthesia Complications: No immediate complications. Estimated Blood Loss: Estimated blood loss: none. Procedure: Pre-Anesthesia Assessment: - Prior to the procedure, a History and Physical was performed, and patient medications and allergies were reviewed. The patient is competent. The risks and benefits of the procedure and the sedation options and risks were discussed with the patient. All questions were answered and informed consent was obtained. Patient identification and proposed procedure were verified by the physician, the nurse, the anesthesiologist, the agriculture specialist and the biodiesel processing technician in the pre-procedure area in the procedure room in the endoscopy suite. Mental Status Examination: alert and oriented. Airway Examination: normal oropharyngeal airway and neck mobility. Respiratory Examination: clear to auscultation. CV Examination: normal. Prophylactic Antibiotics: The patient does not require prophylactic antibiotics. Prior Anticoagulants: The patient has taken no previous anticoagulant or antiplatelet agents. ASA Grade Assessment: II - A patient with mild systemic disease. After reviewing the risks and benefits, the patient was deemed in satisfactory condition to undergo the procedure. The anesthesia plan was to use general anesthesia. Immediately prior to administration of medications, the patient was re-assessed for adequacy to receive sedatives. The heart rate, respiratory rate, oxygen saturations, blood pressure, adequacy of pulmonary ventilation, and response to care were monitored throughout the procedure. The physical status of the patient was re-assessed after the procedure. The benefits, risks and alternatives of the procedure and sedation were discussed and informed consent was obtained. All questions were answered. Please refer to the signed informed consent document in the medical record. The scope was passed under direct vision. The [id number] was introduced through the anus and advanced to the hepatic flexure. The colonoscopy was performed without difficulty. The patient tolerated the procedure well. The quality of the bowel preparation was unsatisfactory. The quality of the bowel preparation was evaluated using the BBPS (Sobieski Bowel Preparation Scale) with scores of: Right Colon = 0 (unprepared, mucosa not seen due to solid stool that cannot be cleared or unseen proximal colon segment in a colonoscopy aborted due to inadequate bowel prep), Transverse Colon = 1 (portion of mucosa seen, but other areas not well seen due to staining, residual stool and/or opaque liquid) and Left Colon = 0 (unprepared, mucosa not seen due to solid stool that cannot be cleared or unseen proximal colon segment in a colonoscopy aborted due to inadequate bowel prep). The total BBPS score equals 1. The quality of the bowel preparation was inadequate. The bowel preparation used was GoLYTELY via split dose instruction. Bowel prep was administered using a split dose. Findings: A large amount of semi-solid solid stool was found in the sigmoid colon, in the descending colon, in the transverse colon and at the hepatic flexure, precluding visualization. Impression: - Preparation of the colon was unsatisfactory. - Preparation of the colon was inadequate. - Stool in the sigmoid colon, in the descending colon, in the transverse colon and at the hepatic flexure. - No specimens collected. Recommendation: - Discharge patient to home (ambulatory). - Resume previous diet. - Continue present medications. - Repeat colonoscopy in 3 months because the examination was incomplete. - Return to referring physician as previously scheduled. - . Electronically signed by Elian Draper MD Elian Draper M.D. 12/17/2020 10:42:21 AM Number of Addenda: 0 Note Initiated On: 12/17/2020 10:24 AM * Elian Gross MD - 12/17/2020 10:01 AM CDTAssociated Order(s): EGD ENDOSCOPY LAB Patient Name: Camilo Curry Procedure Date: 12/17/2020 10:01 AM Date of : 1970 Admit Type: Outpatient Age: 50 Gender: Male Attending MD: Elian Draper M.D. Room: [facility] ENDOSCOPY ROOM 02 Note Status: Finalized Procedure: Upper GI endoscopy Indications: Unexplained iron deficiency anemia, Cirrhosis rule out esophageal varices Providers: Elian Draper M.D. Referring MD: Elian Draper M.D. Medicines: General Anesthesia Complications: No immediate complications. Estimated Blood Loss: Estimated blood loss: none. Procedure: Pre-Anesthesia Assessment: - Prior to the procedure, a History and Physical was performed, and patient medications and allergies were reviewed. The patient is competent. The risks and benefits of the procedure and the sedation options and risks were discussed with the patient. All questions were answered and informed consent was obtained. Patient identification and proposed procedure were verified by the physician, the nurse, the anesthesiologist, the agriculture specialist and the biodiesel processing technician in the pre-procedure area in the procedure room in the endoscopy suite. Mental Status Examination: alert and oriented. Airway Examination: normal oropharyngeal airway and neck mobility. Respiratory Examination: clear to auscultation. CV Examination: normal. Prophylactic Antibiotics: The patient does not require prophylactic antibiotics. Prior Anticoagulants: The patient has taken no previous anticoagulant or antiplatelet agents. ASA Grade Assessment: II - A patient with mild systemic disease. After reviewing the risks and benefits, the patient was deemed in satisfactory condition to undergo the procedure. The anesthesia plan was to use general anesthesia. Immediately prior to administration of medications, the patient was re-assessed for adequacy to receive sedatives. The heart rate, respiratory rate, oxygen saturations, blood pressure, adequacy of pulmonary ventilation, and response to care were monitored throughout the procedure. The physical status of the patient was re-assessed after the procedure. After obtaining informed consent, the endoscope was passed under direct vision. Throughout the procedure, the patient's blood pressure, pulse, and oxygen saturations were monitored continuously. The [id number] was introduced through the mouth, and advanced to the second part of duodenum. The upper GI endoscopy was accomplished without difficulty. The patient tolerated the procedure well. Findings: Four columns of grade I varices with no bleeding and no stigmata of recent bleeding were found in the lower third of the esophagus,. They were small in size. No red vero signs were present. Mild portal hypertensive gastropathy was found in the gastric body, in the gastric antrum and in the prepyloric region of the stomach. The cardia (on retroflexion) and gastric fundus (on retroflexion) were normal. The examined duodenum was normal. Impression: - Grade I esophageal varices with no bleeding and no stigmata of recent bleeding. - Portal hypertensive gastropathy. - Normal cardia and gastric fundus. - Normal examined duodenum. - No specimens collected. Recommendation: - Discharge patient to home (ambulatory). - Resume previous diet. - Continue present medications. - Return to referring physician as previously scheduled. - - Electronically signed by Elian Draper MD Elian Draper M.D. 12/17/2020 10:45:24 AM Number of Addenda: 0 Note Initiated On: 12/17/2020 10:01 AM documented in this encounter Miscellaneous Notes * Perioperative Nursing Note - Marine Petty RN - 12/17/2020 11:[address] Estrada spoke with patient and spouse re: findings. Discharge instructions given - questions answered, understanding expressed. Tolerating po w/o problems. C/o sore lip (patient bit: no bleeding).. C/o WALSH. Seen by Dr. Edwards, WALSH has discussed. * Pre-Procedure Instructions - Yulissa Mirza RN - 11/01/2020 10:49 AM CDT Please follow any instructions you were given re: Bowel prep When you arrive, come to [facility] hospital entrance. There is a [address] with free digital artist parking, or you may park in front and come in. As you enter there will be an information desk, let them know you are here for a procedure and theywill direct you to the registration area. Dress comfortable, leave any valuables at home-specifically pyle, jewelry. If you wear contacts, please wear eye glasses day of procedure. For your safety, due to the anesthesia you will not be able to drive. Please have a ride arranged to and from the hospital with a responsible adult(Must be at least 18y/o) Please no form of public transportation or medical transport by yourself will be allowed At any entrance to the building you will be screened for Covid symptoms, Covid exposure, and have your temp. taken. You are required to wear a mask at all times. I want to reassure you all staff are screened daily as we come in and we do wear masks at all times. You are allowed one person to accompany you into the building, no one under the age of 16 will be allowed into the building. This person can chose to wait for you in the car if they do not want to come inside. If they come inside, they will be screened, required to wear mask at all times My number is [phone] documented in this encounter Plan of Treatment Not on file documented as of this encounter Procedures Procedure Name Priority Date/Time Associated Diagnosis Comments POCT GLUCOSE DEVICE Routine 12/17/2020 1 1:04 AM CDT SURGICAL PATHOLOGY Routine 12/17/2020 10 :34 AM CDT Hepatic cirrhosis, unspecified hepatic cirrhosis type, unspecified whether ascites present (HCC) POCT GLUCOSE DEVICE Routine 12/17/2020 1 0:30 AM CDT COLONOSCOPY 12/17/2020 10:24 AM CDT COLON BIOPSY 12/17/2020 10:05 AM CDT Hepatic cirrhosis, unspecified hepatic cirrhosis type, unspecified whether ascites present (HCC) ESOPHAGOGASTRODUODENOSCOPY 12/17 10:05 AM CDT Hepatic cirrhosis, unspecified hepatic cirrhosis type, unspecified whether ascites present (HCC) EGD 12/17/2020 10:01 AM CDT POCT GLUCOSE DEVICE Routine 12/17/2020 9 :40 AM CDT documented in this encounter Results * (ABNORMAL) POCT glucose (12/17/2020 11:04 AM CDT) Glucose, POC 290(H) 70 - 199 mg/dL MOHINDER WARD Comment: Interpretive Data Glucose is assumed to be non-fasting. Fasting Glucose reference ranges are: 0 - 150 years: ??70 mg/dL - 99 mg/dL Current interpretive data was last revised on 2014. POC Performer [id number] MOHINDER WARD POC Device Number [id number] MOHINDER WARD Glucose comment 1 RN/MD Notified MOHINDER WARD Blood 12/17/2020 11:0 4 AM CDT 12/17/2020 11:04 AM CDT us Elian Draper MD LAB POCT ORD ERABLES - DEVICE Final Result MOHINDER [facility] [address] [facility]. [place] [address] * Surgical pathology (12/17/2020 10:34 AM CDT) Tissue (Polyp(s), colon/colorectal, esophageal, gastric) 12/17/2020 10:34 AM CDT Narrative PATHOLOGY [facility] - 12/18/2020 2:08 PM CDT EPIC results best viewed via link to PDF [facility] [place] [address] Note to Patients: This report may contain a detailed description of human tissue sent by a health care provider to the laboratory for pathologic evaluation. The content of this report is essential for diagnosis and may provide important critical findings. This information may be unfamiliar to patients to review without a medical professional present. It is advised that the patient review this report in the presence of a health care provider who can answer questions and explain the details. SURGICAL PATHOLOGY REPORT FINAL Patient Name: ?? CAMILO CURRY Gender: ??M : ??1970 (Age: 50) Address: ??[address] [place] [address] Hospital #: ??[id number] Taken:12/17/2020 Received:12/17/2020 Reported: 12/18/2020 Patient Type: WC SDS Client ?[facility] Service: Gastro Location: [facility] Physician(s): ??Amber Browning PA Diagnosis: A. ??Descending colon polyp, polypectomy ? - Tubular adenoma ?? pona/12/18/2020 14:08 By this signature, I attest that the above diagnosis is based upon my personal examination of the slides(and/or other material indicated in the diagnosis). Christelle Meade M.D. Report Electronically Reviewed and Signed Out By ??Christelle Meade M.D. 12/18/2020 14:08:59 Microscopic Description and Comment: Microscopic examination substantiates the above cited diagnosis. Microscopic slide review and interpretation for this case was performed at [facility], Department of Surgical Pathology, ??[facility] [address], [id number], ??[place], [place] ??[address] ?? CLIA [id number] History: The patient is a 50-year-old man with hepatic cirrhosis. ??Operative procedure: EGD and colonoscopy. Specimen(s) Received: A: Descending colon polyp Gross Description: The specimen is received in a single formalin filled container, labeled with the patient's identifiers. ? A. Labeled descending colon polyp. ??It contains two irregular andre soft tissue fragments measuring 1.0 x 0.4 x 0.1 cm in aggregate. ??Labeled A1. ??Jar 0. cnewho/12/17/2020 14:36 PA(s): ASHLIE Dunn, CT (ASCP) By this signature, I attest that the above diagnosis is based upon my personal examination of the slides(and/or other material). Addenda/Procedures The performance characteristics of some immunohistochemical stains, fluorescence in-situ hybridization tests and immunophenotyping by flow cytometry cited in this report (if any) were determined by the Surgical Pathology and Flow Cytometry Departments at [facility] as part of an ongoing vice president quality assurance program and in compliance with federally mandated regulations drawn from the Clinical Laboratory Improvement Act of 1988 (CLIA '88). ??Some of these tests rely on the use of analyte specific reagents and are subject to specific labeling requirements by the US Food and Drug Administration. ??Such diagnostic tests may only be performed in a facility that is certified by the Department of Health and Human Services as a high complexity laboratory under CLIA '88. ??The FDA has determined that such clearance or approval is not necessary. ??This test is used for clinical purposes. ??It should not be regarded as investigational or for research. ??Nevertheless, federal rules concerning the medical use of analyte specific reagents require that the following disclaimer be attached to the report: This test was developed and its performance characteristics determined by the Surgical Pathology and Flow Cytometry Departments of [facility]. ??It has not been cleared or approved by the U. S. Food and Drug Administration. IMAGES AND SCANNED DOCUMENTS, IF INCLUDED, ONLY VIEWABLE IN PDF VERSION OF REPORT us Elian Draper MD LAB PATHOLOG Y ORDERABLES Final Result Performing Organization Address City/[facility]/ZIP Co de Phone Number PATHOLOGY [facility] [phone] * (ABNORMAL) POCT glucose (12/17/2020 10:30 AM CDT) Glucose, POC 302(H) 70 - 199 mg/dL MOHINDER WARD Comment: Interpretive Data Glucose is assumed to be non-fasting. Fasting Glucose reference ranges are: 0 - 150 years: ??70 mg/dL - 99 mg/dL Current interpretive data was last revised on 2014. POC Performer [id number] [facility] POC Device Number [id number] [facility] Glucose comment 1 RN/MD Notified MOHINDER WARD Blood 12/17/2020 10:3 0 AM CDT 12/17/2020 10:30 AM CDT us Elian Draper MD LAB POCT ORD ERABLES - DEVICE Final Result Performing Organization Address [facility] Co de Phone Number [facility] [address] [facility] Department [place] [address] * COLONOSCOPY (12/17/2020 10:24 AM CDT) Anatomical Region Laterality Modality Other Narrative Procedure Note Elian Gross MD - 12/17/2020 10:24 AM CDT ENDOSCOPY LAB Patient Name: Camilo Curry Procedure Date: 12/17/2020 10:24 AM Date of : 1970 Admit Type: Outpatient Age: 50 Gender: Male Attending MD: Elian Vivar M.D. Room: [facility] ENDOSCOPY ROOM 02 Note Status: Finalized Procedure: [...] the physician, the nurse, the anesthesiologist, the agriculture specialist and thetechnician in the pre-procedure area in [...] The scope was passed under direct vision.The [id number] was introduced through the anusand advanced to the hepatic flexure. The colonoscopywas performed without difficulty. The patient tolerated the procedure well. The quality of the bowel preparation was unsatisfactory. The quality of the bowel preparation was evaluated using the BBPS(Sobieski Bowel Preparation Scale) with scores of: RightColon [...] 0 Note Initiated On: 12/17/2020 10:24 AM us Elian Draper MD ENDOSCOPY DC OCEDURES Final Result * EGD (12/17/2020 10:01 AM CDT) Anatomical Region Laterality Modality Other Narrative Procedure Note Elian Gross MD - 12/17/2020 10:01 AM CDT ENDOSCOPY LAB Patient Name: Camilo Curry Procedure Date: 12/17/2020 10:01 AM Date of : 1970 Admit Type: Outpatient Age: 50 Gender: Male Attending MD: Elian Vivar M.D. Room: [facility] ENDOSCOPY ROOM 02 Note Status: Finalized Procedure: Upper GI endoscopy Indications: Unexplained iron deficiency anemia, Cirrhosis ruleout esophageal varices Providers: Elian Draper M.D. Referring MD: Elian [...] the physician, the nurse, the anesthesiologist, the agriculture specialist and thetechnician in the pre-procedure area in [...] ofthe patient was re-assessed after the procedure. After obtaining informed consent, the endoscope was passed under direct vision. Throughout theprocedure, the patient's blood pressure, pulse, and oxygen saturations were monitored continuously. The [id number] was introduced through the mouth, and advanced to the second part of duodenum. Theupper GI endoscopy was accomplished without difficulty.The patient tolerated the procedure well. Findings: Four columns of grade I varices with no bleeding and no stigmata of recent bleeding were found in the lower third of the esophagus,. They were small in size. No red vero signs were present. Mild portal hypertensive gastropathy was found in the gastric body,in the gastric antrum and in the prepyloric region of the stomach. The cardia (on retroflexion) and gastric fundus (on retroflexion)were normal. The examined duodenum was normal. Impression: - Grade I esophageal varices with no bleeding andno stigmata of recent bleeding. - Portal hypertensive gastropathy. - Normal cardia and gastric fundus. - Normal examined duodenum. - No specimens collected. Recommendation: - Discharge patient to home (ambulatory). - Resume previous diet. - Continue present medications. - Return to referring physician as previously scheduled. - - Electronically signed by Elian Drpaer MD Elian Draper M.D. 12/17/2020 10:45:24 AM Number of Addenda: 0 Note Initiated On: 12/17/2020 10:01 AM us Elian Draper MD ENDOSCOPY DC OCEDURES Final Result * (ABNORMAL) POCT glucose (12/17/2020 9:40 AM CDT) [facility] Glucose, POC 278(H) 70 - 199 mg/dL MOHINDER WARD Comment: Interpretive Data Glucose is assumed to be non-fasting. Fasting Glucose reference ranges are: 0 - 150 years: ??70 mg/dL - 99 mg/dL Current interpretive data was last revised on 2014. 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)- Primary Hepatic cirrhosis, unspecified hepatic cirrhosis type, unspecified whether ascites present (HCC) Hepatic cirrhosis, unspecified hepatic cirrhosis type, unspecified whether ascites present (HCC) documented in this encounter Admitting Diagnoses Diagnosis 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) documented in this encounter Administered Medications Inactive Administered Medications - up to 3 most recent administrations Medication Order MAR Action Action Date Dose Rate Site insulin regular (HumuLIN R, NovoLIN R) 100 unit/mL injection - ADS Override Pull Starting on Thu12/17/20 at 0956, For 1 dose, Created by cabinet override insulin regular (HumuLIN R, NovoLIN R) 100 unit/mL injection 6 Units 6 Units, intravenous, Once, On Thu12/17/20 at 1030, For 1 dose, Pre-Op Given 12/17/2020 10:00 AM CDT 6 Units sodium chloride 0.9% flush 0.5-20 mL 0.5-20 mL, intra-catheter, Every 8 hours scheduled, First dose on Thu12/17/20 at 1400, Pre-Procedure (GI), Flush volume based on line type and size. sodium chloride 0.9% flush 0.5-20 mL 0.5-20 mL, intra-catheter, As needed, line care, Starting on Thu12/17/20 at 0918, Pre-Procedure (GI), Flush volume based on line type and size. Flush before and after each use. sodium chloride 0.9% infusion 30 mL/hr, intravenous, Continuous, Starting on Thu12/17/20 at 1000, Pre-Procedure (GI) Restarted 12/17/2020 10:30 AM CDT Rate/Dose Verify 12/17/2020 10:02 AM CDT 30 mL/ hr New Bag 12/17/2020 9:40 AM CDT 30 mL/hr 30 mL/hr documented in this encounter Historical Medications * This list may reflect changes made after this encounter. Medication Sig Dispense Quantity Refills Last Filled Start D ate End Date valACYclovir (VALTREX) 1 gram tablet 11/19/2020 05/20/2021 lidocaine (XYLOCAINE) 5 % ointment 11/16/2020 05/20/2021 lidocaine (LIDODERM) 5 % 11/12/2020 05/20/2021 ketoconazole (NIZORAL) 2 % cream 11/20/202005/20 cyclobenzaprine (FLEXERIL) 5 mg tablet 11/09/2020 01/20/2024 clindamycin (CLINDAGEL) 1 % gel 11/20/202005/20 amitriptyline (ELAVIL) 25 mg tablet 11/16/2020 added in this encounter Active and Recently Administered Medications Times are shown in CDT. Scheduled Medication Order 12/15/2020 12/16/2020 12/17/2020 insulin regular (HumuLIN R, NovoLIN R) 100 unit/mL injection 6 Units (COMPLETED)(Linked Group 1) 6 Units, intravenous, Once, On Thu12/17/20 at 1030, For 1 dose, Pre-Op 1000 (Given - Provid er: Herberth Montgomery RN)1030 (Due) sodium chloride 0.9% flush 0.5-20 mL 0.5-20 mL, intra-catheter, Every 8 hours scheduled, First dose on Thu12/17/20 at 1400, Pre-Procedure (GI), Flush volume based on line type and size. Continuous Medication Order 12/15/2020 12/16/2020 12/17/2020 sodium chloride 0.9% infusion 30 mL/hr, intravenous, Continuous, Starting on Thu12/17/20 at 1000, Pre-Procedure (GI) 0940 (New Bag - Prov ider: Herberth Montgomery RN)1002 (Rate/Dose Verify - Provider: Judi Vu CRNA)1029 (Paused - Provider: Judi Vu CRNA - Comment: Switch to gravity)1030 (Restarted - Provider: Judi Vu CRNA)1121 (Stopped - Provider: Marine Petty RN) PRN Medication Order 12/15/2020 12/16/2020 12/17/2020 sodium chloride 0.9% flush 0.5-20 mL 0.5-20 mL, intra-catheter, As needed, line care, Starting on Thu12/17/20 at 0918, Pre-Procedure (GI), Flush volume based on line type and size. Flush before and after each use. Linked Groups Order Group 1: insulin regular (HumuLIN R, NovoLIN R) 100 unit/mL injection 6 Units (COMPLETED)Jump to med 6 Units, intravenous, Once, On Thu12/17/20 at 1030, For 1 dose, Pre-Op And POCT glucose (CANCELED) Once (Routine), On Thu12/17/20 at 0955, For 1 occurrence, 1 hour after administering IV push Insulin Regular. Communicate result with MD., Pre-Op And POCT glucose (CANCELED) Once (Routine), On Thu12/17/20 at 0955, For 1 occurrence, 3 hours after administering IV push Insulin Regular. Communicate result with MD., Pre-Op documented in this encounter Orders Medications Ordered That Ronnie ht Not Have Been Administered Count Last Ordered Date First Ordered Date sodium chloride 0.9% flush 0.5-20 mL 4 12/02 sodium chloride 0.9% infusion 1 12/17/2020 documented in this encounter Care Teams Pit Clerk Relationship Specialty Start Date End Date Braydon Pavon PA [address] [place] [address] PCP - General Family Practice 05/09/20 05/19/21 Nikolay Lancaster MD [address] [address] 05/09/20 05/19/21 documented as of this encounter
--- OUTSIDE RECORDS SUMMARY | 2024-04-19 23:08 | XMS_ITS | Encounter Summary ---
Author Organization 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) Procedures US Liver W Complete Doppler (C) US Liver Doppler Elian Gross MD Phone: tel: fax: [place] [address] [place] [address] Referral ID Status Reason Start Date Expiration Date Visits Re quested Visits Authorized [id number] Closed 09/11/2020 10/01/2020 1 1 Reason for Visit * Diagnostic Imaging (Routine) - Closed Specialty Diagnoses / Procedures Referred By Jordan casillas Referred To Contact Diagnoses 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) Procedures US Liver W Complete Doppler (C) US Liver Doppler Elian Gross MD Phone: tel: fax: [facility] [address] [address] Referral ID Status Reason Start Date Expiration Date Visits Re quested Visits Authorized [id number] Closed 09/11/2020 10/01/2020 1 1 Encounter Details Date Type Department Care Team (Late st Contact Info) Description 10/08/2020 9:43 AM CDT - 10/08/2020 11:59 PM CDT Hospital Encounter [facility] [id number] [phone] Elian Gross MD [address] [facility] [address] [place] [address] 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); S/P TIPS (transjugular intrahepatic portosystemic shunt) Discharge [...] on file 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 09/10/2015 4 ondansetron (ZOFRAN) 4 mg tablet take 1 tab every 8 hours prn nausea and vomitting 09/10/2015 4 polyethylene glycol (GoLYTELY) 236-22.74-6.74 -5.86 gram solutionIndications: bowel preparation Take 4,000 mL by mouth once for 1 dose 4000 mL 11/01/2020 1 PROVENTIL HFA 90 mcg/actuation inhaler 01/14/2018 4 rifAXIMin (XIFAXAN) 550 mg tabletIndications:He patic Encephalopathy Take 1 tablet (550 mg total) by mouth 2 (two) times a day 60 tablet 11 08/30/2020 4 traMADol (ULTRAM) 50 mg tablet TAKE 1 TABLET 3 TIMES DAILY NEEDED. 12/08/2016 2 documented as of this encounter Discharge Disposition Disposition Code Departure Means Destination Discharge to home or self care documented in this encounter Plan of Treatment Not on file documented as of this encounter Procedures Procedure Name Priority Date/Time Associated Diagnosis Comments US LIVER W COMPLETE DOPPLER Schedule Routine, Read Routine (OP Routine) 10/08/2020 11:01 AM CDT 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) S/P TIPS (transjugular intrahepatic portosystemic shunt) documented in this encounter Results * US Liver W Complete Doppler (C) (10/08/2020 11:01 AM CDT) Anatomical Region Laterality Modality Abdomen N/A Ultrasound 10/08/2020 11:3 7 AM CDT Impressions 10/08/2020 11:37 AM CDT 1. Hepatic cirrhosis with diffuse hepatic steatosis, that obscures deeper structures. 2. US LI-RADS Screening/Surveillance Category: US 1 - Negative. 3. Visualization Score: B: Moderate limitations in liver visualization. 4. Focal echogenic filling defect is identified in the proximal TIPS stent with low in-stent velocities, decreased from prior examination, compatible with stenosis related to partially obstructing filling defect, possible pannus/thrombus. Antegrade flow within the right and left portal veins, away from the TIPS stent is unchanged. US LI-RADS REFERENCE: US Category: US-1 Negative: No evidence of hepatocellular carcinoma (HCC). US-2 Subthreshold: Observation detected that may warrant short-interval US surveillance. Observation<10 mm in diameter, not definitely benign. US-3 Positive: Observation detected that may warrant multi-phase contrast-enhanced imaging. Observation >/= 10 mm in diameter or new thrombus in vein. Visualization Score: A. No or minimal limitations: Limitations, if any, are unlikely to meaningfully affect sensitivity. The liver is homogenous or minimally heterogenous with minimal beam attenuation or shadowing, and is visualized in near entirety. B. Moderate limitations: Limitations may obscure small masses. The liver is moderately heterogenous with moderate beam attenuation or shadowing, and some portions of the liver or diaphragm are not visualized. C. Severe limitations: Limitations significantly lower sensitivity for focal liver lesions. The liver is severely heterogeneous with severe beam attenuation or shadowing, and the majority (>50%) of the liver or diaphragm is not visualized. Electronically signed by: Kory Villareal M.D. Narrative 10/08/2020 11:37 AM CDT EXAMINATION: 1. LIVER SONOGRAM 2. LIVER DOPPLER -TIPS HISTORY: ??Nonalcoholic steatohepatitis with TIPS stent in place for management of refractory hematemesis despite prior banding. Screening for hepatocellular carcinoma. COMPARISON: ??02/02/2018 FINDINGS: ?? LIVER SONOGRAM: Liver: Visualization Score: A: No or minimal limitations in liver visualization. Morphology/Parenchyma/contour: The liver is normal in size. ??The echotexture is coarse. ??The echogenicity is increased. There is surface nodularity. Liver observations: No focal hepatic observations. Ascites: No ascites. TIPS DOPPLER: Color Doppler and spectral analysis were used to evaluate the stent graft and hepatic vasculature. ?? Portal veins: Main portal vein velocity measures 48 cm/second. ??Flow is antegrade in both the right and left portal vein branches. ?? TIPS stent: The distal portion of the TIPS stent is poorly visualized due to body habitus and obscuration by overlying hepatic steatosis. Maximum velocity within the stent graft occurs in the proximal portion and measures 88 cm/sec (previously measured 113 cm/sec). Minimum velocity occurs within the ??mid portion of the stent and measures 53 cm/sec (previously measured 109 cm/sec).. Within the proximal portion of the stent, there is an echogenic filling defect within the lumen of the stent. Draining hepatic vein: Cannot be visualized, obscured by body habitus and hepatic steatosis. Collaterals: There is no evidence of collaterals. Ascites: There is no ascites. ?? Procedure Note Kory Villareal MD - 10/08/2020 EXAMINATION: 1. LIVER SONOGRAM 2. LIVER DOPPLER -TIPS HISTORY: Nonalcoholic steatohepatitis with TIPS stent in place for management of refractory hematemesis despite prior banding. Screening for hepatocellular carcinoma. COMPARISON: 02/02/2018 FINDINGS: LIVER SONOGRAM: Liver: Visualization Score: A: No or minimal limitations in liver visualization. Morphology/Parenchyma/contour: The liver is normal in size. The echotexture is coarse. The echogenicity is increased. There is surface nodularity. Liver observations: No focal hepatic observations. Ascites: No ascites. TIPS DOPPLER: Color Doppler and spectral analysis were used to evaluate the stent graft and hepatic vasculature. Portal veins: Main portal vein velocity measures 48 cm/second. Flow is antegrade in both the right and left portal vein branches. TIPS stent: The distal portion of the TIPS stent is poorly visualized due to body habitus and obscuration by overlying hepatic steatosis. Maximum velocity within the stent graft occurs in the proximal portion and measures 88 cm/sec (previously measured 113 cm/sec). Minimum velocity occurs within the mid portion of the stent and measures 53 cm/sec (previously measured 109 cm/sec).. Within the proximal portion of the stent, there is an echogenic filling defect within the lumen of the stent. Draining hepatic vein: Cannot be visualized, obscured by body habitus and hepatic steatosis. Collaterals: There is no evidence of collaterals. Ascites: There is no ascites. IMPRESSION: 1. Hepatic cirrhosis with diffuse hepatic steatosis, that obscures deeper structures. 2. US LI-RADS Screening/Surveillance Category: US 1 - Negative. 3. Visualization Score: B: Moderate limitations in liver visualization. 4. Focal echogenic filling defect is identified in the proximal TIPS stent with low in-stent velocities, decreased from prior examination, compatible with stenosis related to partially obstructing filling defect, possible pannus/thrombus. Antegrade flow within the right and left portal veins, away from the TIPS stent is unchanged. US LI-RADS REFERENCE: US Category: US-1 Negative: No evidence of hepatocellular carcinoma (HCC). US-2 Subthreshold: Observation detected that may warrant short-interval US surveillance. Observation<10 mm in diameter, not definitely benign. US-3 Positive: Observation detected that may warrant multi-phase contrast-enhanced imaging. Observation >/= 10 mm in diameter or new thrombus in vein. Visualization Score: A. No or minimal limitations: Limitations, if any, are unlikely to meaningfully affect sensitivity. The liver is homogenous or minimally heterogenous with minimal beam attenuation or shadowing, and is visualized in near entirety. B. Moderate limitations: Limitations may obscure small masses. The liver is moderately heterogenous with moderate beam attenuation or shadowing, and some portions of the liver or diaphragm are not visualized. C. Severe limitations: Limitations significantly lower sensitivity for focal liver lesions. The liver is severely heterogeneous with severe beam attenuation or shadowing, and the majority (>50%) of the liver or diaphragm is not visualized. Electronically signed by: Kory Villareal M.D. 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
--- OUTSIDE RECORDS SUMMARY | 2024-04-19 23:08 | XMS_ITS | Encounter Summary ---
Author Organization [facility] Address [address] [place] [address] Care Team Providers Care Marine Geologist Name Role Phone Braydon Pavon Primary Care Provider [phone] Nikolay Lancaster MD Unavailable [phone] Reason for Visit * Reason Comments New Patient Valve Disorder Encounter Details Date Type Department Care Team (Late st Contact Info) Description 05/14/2020 11:00 AM PER DIEM NURSE Office Visit [place] [employer] [facility] Assistant 2 [facility] [address] [place] [id number] Timothy Peterson, 2 [facility] [address] [place] [address] Chest pain, unspecified type (Primary Dx); Bacterial endocarditis, unspecified chronicity; Other chest pain; Morbid obesity with body mass index (BMI) of 40.0 to 44.9 in adult (CMS/HCC); Dyspnea on exertion Social History Tobacco Use Types Packs/Day Years Used Date Smoking Tobacco: Former Smokeless Tobacco: Never Alcohol Use Standard Drinks/Week Comments No 0 (1 standard drink = 0.6 oz pur e alcohol) Sex and Gender Information Value Date Recorded Sex Assigned at Not on file Legal Sex Male 2:52 PM PER DIEM NURSE Gender Identity Male 10/29/2020 12:37 PM CDT Sexual Orientation Straight 10/29/2020 12 :37 PM CDT documented as of this encounter Last Filed Vital Signs Vital Sign Reading Time Taken Comments Blood Pressure 139/77 05/14/2020 10:47 AM PER DIEM NURSE Pulse 102 05/14/2020 10:47 AM PER DIEM NURSE Temperature 37 ??C (98.6 ??F) 05/14/2020 10:47 AM PER DIEM NURSE Respiratory Rate 16 05/14/2020 10:47 AM PER DIEM NURSE Oxygen Saturation - - Inhaled Oxygen Concentration - - Weight 122.9 kg (271 lb) 05/14/2020 10:47 AM PER DIEM NURSE Height 172.7 cm (5' 8 ) 05/14/2020 10:47 AM PER DIEM NURSE Body Mass Index 41.21 05/14/2020 10:47 AM PER DIEM NURSE documented in this encounter Progress Notes * Timothy Peterson, DO - 05/14/2020 11:00 AM CST Images from the original note were not included. Cardiology note Reason for Office Visit: Chief Complaint Patient presents with ??? New Patient ??? Valve Disorder History of Present Illness: Camilo Curry is a 49 y.o. male with PMH significant for BLAND cirrhosis c/b esophageal varices andHE s/p TIPS in 2015, duodenal polyposis, gallstones, DM, was hospitalized in [place] the end of February 2020 for fever and abnormal blood cultures. Echocardiography reportedly had a suspicious finding for vegetation however due to the patient's esophageal varices ART was not performed and the patient was empirically treated for 1 month with IV antibiotics. This antibiotic therapy was cut short and now the patient presents for evaluation of post potential endocarditis treatment. The patient has had random episodes of stabbing chest discomfort and ongoing dyspnea with activity. He denies any syn cope or near syncope. Review of Systems: Review of Systems Constitution: Negative for weight gain and weight loss. HENT: Negative for nosebleeds and stridor. Eyes: Negative for blurred vision and redness. Cardiovascular: Negative for chest pain, claudication, cyanosis, dyspnea on exertion, irregular heartbeat, leg swelling, near-syncope, orthopnea, palpitations, paroxysmal nocturnal dyspnea and syncope. Respiratory: Negative for shortness of breath and snoring. Hematologic/Lymphatic: Negative for bleeding problem. Does not bruise/bleed easily. Skin: Negative for color change and rash. Musculoskeletal: Negative for back pain and muscle weakness. Gastrointestinal: Negative for bloating and heartburn. Genitourinary: Negative for decreased libido and hematuria. Neurological: Negative for excessive daytime sleepiness and dizziness. Psychiatric/Behavioral: Negative for altered mental status. The patient is not nervous/anxious. Histories: Past Medical History: Diagnosis Date ??? Diabetes (CMS/HCC) ??? Gallbladder calculus ??? Heart murmur ??? Heart valve disease ??? BLAND (nonalcoholic steatohepatitis) Past Surgical History: Procedure Laterality Date ??? LIVER SURGERY ??? TIPS INITIAL N/A 11/23/2015 Family History Problem Relation Age of Onset [...] Alcohol use: No ??? Drug use: No Allergies: Allergies Allergen Reactions ??? Ciprofloxacin Other (See comments), Shortness of breath and Urticaria Reaction: URTICARIA;, ??? Penicillins Anaphylaxis, Other (See comments), Hives and Shortness of breath Reaction: ??? Dye Unknown and Swelling ??? Erythromycin Hives and Other (See comments) Reaction: Reaction: HIVES, ??? Esomeprazole Hives and Other (See comments) Reaction: Reaction: HIVES, Dr. Vigil okay with giving protonix ??? Iv Contrast Dye [Iodinated Contrast Media] Other (See comments), Edema and Swelling Reaction: Reaction: SWELLING, unk ??? Nexium [Esomeprazole Magnesium] Hives ??? Penicillin Hives Reaction: HIVES, ??? Sulfa (Sulfonamide Antibiotics) Hives and Other (See comments) Reaction: Reaction: HIVES, ??? Prochlorperazine Unknown ??? Azactam [Aztreonam] Other (See comments) and Unknown Reaction: UNKNOWN, unk ??? Duloxetine Other (See comments) and Nausea only hives ??? Octreotide Other (See comments) unk Medications: Current Outpatient Medications Medication Sig Dispense Refill ??? ALPRAZolam (XANAX) 0.5 mg tablet Take 0.5 mg by mouth as needed for anxiety. ??? ALPRAZolam (XANAX) 0.5 mg tablet TAKE 1 TABLET TWICE DAILY NEEDED. ??? BD ULTRA-FINE SHORT PEN NEEDLE 31 gauge x 5/16 needle ??? busPIRone (BUSPAR) 10 mg tablet ??? ergocalciferol (VITAMIN D) 50,000 unit capsule once a week. ??? hepatitis A and B (TWINRIX, PF,) 720 Nydia unit -20 mcg/mL suspension Inject into the muscle asinstructed. ??? HUMULIN R U-500, CONC, KWIKPEN 500 unit/mL (3 mL) CONCENTRATED injection ??? HYDROcodone-acetaminophen (NORCO) 10-325 mg per tablet as directed for pain prn ??? insulin regular U-500 (HumuLIN R U-500) 500 unit/mL CONCENTRATED injection Inject 150 Units under the skin 3 (three) times a day before meals. ??? lactulose solution 10 gram/15mL ??? lactulose solution 10 gram/15mL TAKE 30MLS BY MOUTH FOUR TIMES A DAY NEEDED ??? omeprazole (PriLOSEC) 20 mg capsule Take 20 mg by mouth daily. ??? omeprazole (PriLOSEC) 20 mg capsule 2 times daily. ??? ondansetron (ZOFRAN) 4 mg tablet Take 4 mg by mouth every 8 (eight) hours as needed for nausea or vomiting. ??? ondansetron (ZOFRAN) 4 mg tablet take 1 tab every 8 hours prn nausea and vomitting ??? ONETOUCH DELICA LANCETS 30 gauge misc ??? ONETOUCH ULTRA BLUE TEST STRIP strip ??? PROVENTIL HFA 90 mcg/actuation inhaler ??? rifAXIMin (XIFAXAN) 550 mg tablet Take 550 mg by mouth. ??? rifAXIMin (XIFAXAN) 550 mg tablet 2 times daily. ??? traMADol (ULTRAM) 50 mg tablet TAKE 1 TABLET 3 TIMES DAILY NEEDED. ??? UNKNOWN TO PATIENT Humalog U 500 150 units bid 100-150 units hs No current facility-administered medications for this visit. Vital Signs: Vitals BP 139/77 (BP Location: Right arm, Patient Position: Sitting) Pulse 102 Temp 37 ??C (98.6 ??F) Resp 16 Ht 172.7 cm (5' 8 ) Wt 122.9 kg (271 lb) BMI 41.21 kg/m?? Vitals: 05/14/20 1047 BP: 139/77 Pulse: 102 Resp: 16 Temp: 37 ??C (98.6 ??F) Wt Readings from Last 3 Encounters: 05/14/20 122.9 kg (271 lb) 02/22/18 123.9 kg (273 lb 1.6 oz) 02/02/18 122.5 kg (270 lb 1 oz) Body mass index is 41.21 kg/m??. Physical Exam: Physical Exam Constitutional: He is oriented to person, place, and time. He appears well- developed and well-nourished. No distress. HENT: Head: Normocephalic. Eyes: EOM are normal. Neck: No JVD present. No tracheal deviation present. Cardiovascular: Normal rate, regular rhythm, S1 normal, S2 normal and intact distal pulses. Exam reveals no decreased pulses. Pulses: Carotid pulses are 2+ on the right side and 2+ on the left side. Posterior tibial pulses are 2+ on the right side and 2+ on the left side. Pulmonary/Chest: Effort normal and breath sounds normal. He has no decreased breath sounds. He has no rhonchi. Abdominal: Soft. Normal appearance and bowel sounds are normal. There is no hepatomegaly. Musculoskeletal: Normal range of motion. Neurological: He is alert and oriented to person, place, and time. Skin: Skin is warm and dry. He is not diaphoretic. Psychiatric: He has a normal mood and affect. Labs: Lab Results Component Value Date INR 1.24 (H) 02/02/2018 INR 1.21 07/06/2017 INR 1.10 08/04/2016 Lab Results Component Value Date PT 14.3 (H) 02/02/2018 PT 13.0 07/06/2017 PT 12.6 08/04/2016 Lab Results Component Value Date TSH 1.59 11/03/2015 Lab Results Component Value Date BILIRUBINU Negative 11/19/2015 AST 105 (H) 02/02/2018 ALT 83 (H) 02/02/2018 ALKPHOS 71 02/02/2018 ALBUMIN 3.8 02/02/2018 Lab Results Component Value Date SODIUM 137 02/02/2018 POTASSIUM 5.0 (H) 02/02/2018 CHLORIDE 106 02/02/2018 CO2 23 02/02/2018 ANIONGAP 8 02/02/2018 GLUCOSEUR 2+ (A) 02/02/2018 No results found for: BNP Lab Results Component Value Date SODIUM 137 02/02/2018 SODIUM 135 10/11/2017 SODIUM 140 08/28/2017 POTASSIUM 5.0 (H) 02/02/2018 POTASSIUM 4.3 10/11/2017 POTASSIUM 4.6 08/28/2017 CHLORIDE 106 02/02/2018 CHLORIDE 97 10/11/2017 CHLORIDE 103 08/28/2017 CO2 23 02/02/2018 CO2 26 10/11/2017 CO2 29 08/28/2017 BUNSER 15 02/02/2018 BUNSER 10 10/11/2017 BUNSER 14 08/28/2017 CREATININE 0.73 (L) 02/02/2018 CREATININE 0.70 (L) 10/11/2017 CREATININE 0.70 (L) 08/28/2017 GFRNAA >60 10/11/2017 GLUCOSE 189 02/02/2018 CALCIUM 8.7 02/02/2018 CALCIUM 9.5 10/11/2017 CALCIUM 9.3 08/28/2017 ALBUMIN 3.8 02/02/2018 ALBUMIN 3.6 10/11/2017 ALBUMIN 4.1 08/28/2017 PHOS 2.9 02/02/2018 PHOS 3.6 06/01/2016 PHOS 4.0 11/03/2015 Lab Results Component Value Date SODIUM 137 02/02/2018 POTASSIUM 5.0 (H) 02/02/2018 CHLORIDE 106 02/02/2018 CO2 23 02/02/2018 ANIONGAP 8 02/02/2018 BUNSER 15 02/02/2018 CREATININE 0.73 (L) 02/02/2018 GLUCOSE 189 02/02/2018 CALCIUM 8.7 02/02/2018 BILITOT 1.3 (H) 02/02/2018 PROT 7.1 02/02/2018 ALBUMIN 3.8 02/02/2018 ALKPHOS 71 02/02/2018 ALT 83 (H) 02/02/2018 AST 105 (H) 02/02/2018 Lab Results Component Value Date WBC 6.2 02/02/2018 HGB 12.9 (L) 02/02/2018 HCT 39.1 02/02/2018 LABPLAT 105 (L) 02/02/2018 MPV 11.7 02/02/2018 RBC 4.77 02/02/2018 MCV 82.0 02/02/2018 MCH 27.0 (L) 02/02/2018 MCHC 33.0 02/02/2018 RDWCV 15.5 (H) 02/02/2018 RDWSD 46.0 02/02/2018 NRBCABS 0.00 02/02/2018 Lab Results Component Value Date CHOL 115 08/28/2017 TRIG 110 08/28/2017 HDL 34 (L) 08/28/2017 LDLCALC 59 08/28/2017 NONHDLCHOL 81 08/28/2017 Testing: Echo: 10/02/2015 Chest Xray: 10/11/2017 IMPRESSION: Comparison to ribs and PA chest examination 08/28/2017 and 11/23/2015. ?? There is unchanged streaky opacification at the left lung base likely related atelectasis or scarring. There is no confluent airspace opacity. There is no pleural effusion or pneumothorax. The heart size and mediastinal contours are unchanged. A TIPS stent is present. There is eventration of the left hemidiaphragm anteriorly. ?? Electronically signed by: Braydon Nieves M.D. EK06/01/2016 Diagnoses and Plan Diagnoses and all orders for this visit: Chest pain, unspecified type (Primary) - Transthoracic Echo Complete W Doppler/CF; Future - NM MPI SPECT (Rest and/or Stress) Multiple Studies; Future Bacterial endocarditis, unspecified chronicity Assessment & Plan: Unfortunately the patient's records from [place] are not available for my review. We will request his discharge summary, echo report and echo images. In the interim I will obtain echocardiography andLexiscan stress testing to further investigate the patient's dyspnea and chest discomfort. At this point I doubt the patient had endocarditis. Presently the patient has no suggestion of subacute or chronic bacterial endocarditis. We will see him in follow-up for review but if the patient has no significant valvular disease or evidence for ischemia by stress testing, I doubt any additional cardiovascular workup/follow- up will be necessary. Other chest pain Morbid obesity with body mass index (BMI) of 40.0 to 44.9 in adult ([facility]) Dyspnea on exertion Assessment & Plan: The patient's dyspnea on exertion is likely multifactorial but I will further investigate potentialcardiac etiology with assessment of filling pressures on echocardiography. Due to the patient's diabetes, morbid obesity, advancing age he is at high risk for development of heart failure. Return for Follow-up testing with KW. 11:12 AM Timothy Peterson DO Cc:Braydon Pavon PA DIEM NURSE documented in this encounter Miscellaneous Notes * Assessment & Plan Note - Timothy Peterson DO - 05/14/2020 11:11 AM PER DIEM NURSE Associated Problem(s): Dyspnea on exertion The patient's dyspnea on exertion is likely multifactorial but I will further investigate potentialcardiac etiology with assessment of filling pressures on echocardiography. Due to the patient's diabetes, morbid obesity, advancing age he is at high risk for development of heart failure. DIEM NURSE * Assessment & Plan Note - Timothy Peterson DO - 05/14/2020 11:07 AM PER DIEM NURSE Associated Problem(s): Bacterial endocarditis Unfortunately the patient's records from [place] are not available for my review. We will request his discharge summary, echo report and echo images. In the interim I will obtain echocardiography andLexiscan stress testing to further investigate the patient's dyspnea and chest discomfort. At this point I doubt the patient had endocarditis. Presently the patient has no suggestion of subacute or chronic bacterial endocarditis. We will see him in follow-up for review but if the patient has no significant valvular disease or evidence for ischemia by stress testing, I doubt any additional cardiovascular workup/follow- up will be necessary. DIEM NURSE documented in this encounter Plan of Treatment Not on file documented as of this encounter Visit Diagnoses Diagnosis Chest pain, unspecified type- Primary Bacterial endocarditis, unspecified chronicity Morbid obesity with body mass index (BMI) of 40.0 to 44.9 in adult ([facility]) Dyspnea on exertion Other dyspnea and respiratory abnormality documented in this encounter Discontinued Medications Medication Sig Discontinue Reason Start Date End Da te ALPRAZolam (XANAX) 0.5 mg tablet Take 0.5 mg by mouth as needed for anxiety. 05/09/2020 busPIRone (BUSPAR) 10 mg tabletIndications:Genera lized Anxiety Disorder 02/11/2018 1 hepatitis A and B (TWINRIX, PF,) 720 Nydia unit -20 mcg/mL suspensionIndications:He patitis B Prevention,Viral Hepatitis A Prevention Inject into the muscle as instructed. 09/20/2015 05/09/2020 lactulose solution 10 gram/15mL 05/09/2020 HYDROcodone-acetaminophe n (NORCO) 10-325 mg per tabletIndications:Pain as directed for pain prn 09/10/2015 05/09/2020 omeprazole (PriLOSEC) 20 mg capsule Take 20 mg by mouth daily. 05/09/2020 ondansetron (ZOFRAN) 4 mg tablet Take 4 mg by mouth every 8 (eight) hours as needed for nausea or vomiting. 05/09/2020 ONETOUCH DELICA LANCETS 30 gauge misc 11/02/2017 05/09/2020 UNKNOWN TO PATIENT Humalog U 500 150 units bid 100-150 units hs 05/09/2020 rifAXIMin (XIFAXAN) 550 mg tablet Take 550 mg by mouth. 05/09/2020 ergocalciferol (VITAMIN D) 50,000 unit capsule once a week. 07/07/2017 insulin regular U-500 (HumuLIN R U-500) 500 unit/mL CONCENTRATED injectionIndications:Adriana betes Mellitus with Severe Insulin Resistance Inject 150 Units under the skin 3 (three) times a day before meals. 05/14/2020 metFORMIN (GLUCOPHAGE) 500 mg tablet Take 500 mg by mouth 2 (two) times a day with meals 05/14/2020 documented as of this encounter Historical Medications * This list may reflect changes made after this encounter. hydroCHLOROthiazi de (HYDRODIURIL) 25 mg tablet Take 1 tablet (25 mg total) by mouth daily codeine-guaiFENes in-pseudoephedrin e (Virtussin DAC) 2-20-6 mg/mL syrup every 6 (six) hours 05/20/2021 metFORMIN (GLUCOPHAGE) 500 mg tablet Take 500 mg by mouth 2 (two) times a day with meals 05/14/2020 acetaminophen-cod eine (TYLENOL with CODEINE #3) 300-30 mg per tablet Take 1 tablet by mouth every 4 (four) hours as needed for pain 01/20/2024 added in this encounter Care Teams Marine Geologist Relationship Specialty Start Date End Date Braydon Pavon PA [address] [place] [address] PCP - General Family Practice 05/09/20 05/19/21 Nikolay Lancaster MD [address] [address] 05/09/20 05/19/21 documented as of this encounter
--- OUTSIDE RECORDS SUMMARY | 2024-04-19 23:08 | XMS_ITS | Encounter Summary ---
Author Organization [facility] Address [address] [place] [address] Phone Care Team Providers Care Parts Administrator Name Role Phone Kris Soto MD Primary Care Provide r Encounter Details Date Type Department Care Team (Late st Contact Info) Description 05/07/2018 Orders Only [facility] [address] [place] [address] [place] [address] Faith Hooker Social History Tobacco Use Types Packs/Day Years Used Date Smoking Tobacco: Former Smokeless Tobacco: Never Alcohol Use Standard Drinks/Week Comments No 0 (1 standard drink = 0.6 oz pur e alcohol) Sex and Gender Information Value Date Recorded Sex Assigned at Not on file Legal Sex Male 2:52 PM CUSTOMS OFFICER Gender Identity Male 10/29/2020 12:37 PM CDT Sexual Orientation Straight 10/29/2020 12 :37 PM CDT documented as of this encounter Plan of Treatment Not on file documented as of this encounter Visit Diagnoses Not on filedocumented in this encounter Care Teams Parts Administrator Relationship Specialty Start Date End Date Kris Soto MD [address] [place] [address] PCP - General 12/08/16 10/26/18 documented as of this encounter
--- OUTSIDE RECORDS SUMMARY | 2024-04-19 23:08 | XMS_ITS | Encounter Summary ---
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) Procedures US Liver W Complete Doppler (C) US Liver Doppler Elian Gross MD Phone: tel: fax: [address] [address] Referral ID Status Reason Start Date Expiration Date Visits Re quested Visits Authorized [id number] Closed 09/11/2020 10/01/2020 1 1 Reason for Visit * Consultation (Routine) - Closed Specialty Diagnoses / Procedures Referred By Jordan casillas Referred To Contact Gastroenterology Diagnoses Nonalcoholic steatohepatitis (BLAND) Braydon Pavon PA [address] [place] [address] Phone: tel: fax: [facility] (All Locations) Referral ID Status Reason Start Date Expiration Date V isits Requested Visits Authorized [id number] Closed Specialty Services Required 06/14/2020 07/14/2021 25 25 Encounter Details Date Type Department Care Team (Late st Contact Info) Description 08/30/2020 9:40 AM CDT Office Visit [facility] Gastroenterology [address] [facility] Medical Office Building [address] [place] [id number] Elian Gross MD [address] 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 Gender Identity Male 10/29/2020 12:37 PM CDT Sexual Orientation Straight 10/29/2020 12 :37 PM CDT documented as of this encounter Last Filed Vital Signs Vital Sign Reading Time Taken Comments Blood Pressure 125/77 08/30/2020 9:18 AM CDT Pulse 106 08/30/2020 9:18 AM CDT Temperature 37.1 ??C (98.8 ??F) 08/30/2020 9:18 AM CD T Respiratory Rate - - Oxygen Saturation - - Inhaled Oxygen Concentration - - Weight 120 kg (264 lb 9.6 oz) 08/30/2020 9:18 AM CDT Height 172.7 cm (5' 8 ) 08/30/2020 9:18 AM CDT Body Mass Index 40.23 08/30/2020 9:18 AM CDT documented in this encounter Ordered Prescriptions Prescription Sig Dispense Quantity Refills Last Filled Start Date End Date rifAXIMin (XIFAXAN) 550 mg tabletIndications:He patic Encephalopathy Take 1 tablet (550 mg total) by mouth 2 (two) times a day 60 tablet 11 08/30/2020 4 documented in this encounter Progress Notes * Elian Gross MD - 08/30/2020 9:40 AM CDT HEPATOLOGY CLINIC PROGRESS NOTE TRANSPLANT HEPATOLOGY Referring physician: SONALI Heath Primary Care Provider: SONALI Pavon PROBLEMS: 1. 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 S/P TIPS (transjugular intrahepatic portosystemic shunt) 3. Nonalcoholic steatohepatitis (BLAND) 4. Morbid obesity with BMI of 40.0-44.9, adult (CMS/HCC) 5. Chronic anemia SUBJECTIVE: Mr. Camilo Curry is a very pleasant 49 y.o. male that comes for follow up to the Hepatology Clinic. Patient was previously followed by Dr. Ellis, last time seen 02/2018. He is known for BLAND cirrhosis, decompensated with GI bleeding, now s/p TIPS, last time evaluated in 2018 with adequate flows.Since TIPS placement he has had intermittent episodes of hepatic encephalopathy treated with lactulose and rifaximin, currently only on lactulose, with bowel movements not on goal.Denies recent hospitalizations for HE. He does complain of recent increase gas and feeling bloated. Denies episodes of gastrointestinal bleeding, states that he does have episodes of having blood on his pillow, most likely due to gums bleeding. His HCC screening is not up to date. Recent hospitalization in 2019 due tosepsis of unknown origin. Also followed by cardiology due to chest pain. He currently denies takingNSAIDs. States he developed new rash, not related to his liver disease and that he is waiting to hear back from a referral made to dermatology. Current Medications Current Outpatient Medications Medication Sig Dispense Refill ??? ALPRAZolam (XANAX) 0.5 mg tablet TAKE 1 TABLET TWICE DAILY NEEDED. ??? BD ULTRA-FINE SHORT PEN NEEDLE 31 gauge x 5/16 needle ??? HUMULIN R U-500, CONC, KWIKPEN 500 [...] ??? PROVENTIL HFA 90 mcg/actuation inhaler ??? traMADol (ULTRAM) 50 mg tablet TAKE 1 TABLET 3 TIMES DAILY NEEDED. ??? acetaminophen-codeine (TYLENOL with CODEINE #3) 300-30 mg per tablet Take 1 tablet by mouth every 4 (four) hours as needed for pain ??? jcvjuwe-sdirZUNrqbp-wbmlkcnuaoljtxi (Virtussin DAC) 2-20-6 mg/mL syrup every 6 (six) hours ??? rifAXIMin (XIFAXAN) 550 mg tablet Take 1 tablet (550 mg total) by mouth 2 (two) times a day 60 tablet 11 No current facility-administered medications for this visit. REVIEW OF SYSTEMS: A complete review of systems was performed and was negative except for what is mentioned above. PHYSICAL EXAM: BP 125/77 Pulse 106 Temp 37.1 ??C (98.8 ??F) Ht 172.7 cm (5' 8 ) Wt 120 kg (264 lb 9.6 oz) BMI 40.23 kg/m?? well developed, well nourished HEENT: sclera anticteric, PERRLA and EOMI Neck: supple and without palpable lymphadenopathy or thyromegaly Lungs: clear to auscultation and percussion Cardiovascular: regular rate and rhythm without murmurs or gallops Abdomen: soft, nontender and without organomegaly Extremities: wihtou clubbing, cyanosis, or edema Neurologic: alert and oriented; no focal deficits seen Skin: without rash or bruising LABORATORY RESULTS Lab Results Component Value Date WBC 3.3 (L) 08/30/2020 HGB 8.4 (L) 08/30/2020 HCT 31.1 (L) 08/30/2020 MCV 70 (L) 08/30/2020 LABPLAT 80 (L) 08/30/2020 Lab Results Component Value Date CREATININE 0.66 (L) 08/30/2020 BUNSER 15 08/30/2020 SODIUM 138 08/30/2020 POTASSIUM 4.1 08/30/2020 CO2 26 08/30/2020 Lab Results Component Value Date ALT 67 (H) 08/30/2020 AST 68 (H) 08/30/2020 ALKPHOS 71 08/30/2020 BILITOT 1.1 08/30/2020 Lab Results Component Value Date INR 1.1 08/30/2020 INR 1.15 10/27/2018 INR 1.24 (H) 02/02/2018 Lab Results Component Value Date AFP 3.5 08/30/2020 MELD-Na score: 8 at 08/30/2020 10:27 AM MELD score: 8 at 08/30/2020 10:27 AM Calculated from: Serum Creatinine: 0.66 mg/dL (Rounded to 1 mg/dL) at 08/30/2020 10:27 AM Serum Sodium: 138 mmol/L (Rounded to 137 mmol/L) at 08/30/2020 10:27 AM Total Bilirubin: 1.1 mg/dL at 08/30/2020 10:27 AM INR(ratio): 1.1 at 08/30/2020 10:27 AM Age: 49 years 11 months RADIOLOGY RESULTS: No recent imaging on chart for review. ASSESSMENT AND PLAN Mr. Camilo Curry was seen today in clinic and his assessment and plan is as follows: ??? BLAND cirrhosis, previously decompensated with GI bleeding, now s/p TIPS with MELD of 8. Currently low MELD not eligible for LT. ??? S/P TIPS, will refer him for doppler US to assess permeability of his TIPS. Currently no apparent evidence of dysfunction. ??? Hepatic encephalopathy, secondary to TIPS placement, recommend to titrate lactulose to have 3 to 4 bowel movements. Will add rifaximin, prescription made. Recommend to avoid benzodiazepines and narcotics. ??? Portal hypertension, s/p TIPS, no current indication for EGD or NSBB. ??? No clinical evidence of ascites. ??? HCC screening is not up to date, will schedule him for US to continue his screening and will obtain AFP. Should continue with US every 6 months. ??? Discussed importance of diet, strict metabolic control, physical activity and weight loss. ??? Iron deficiency anemia due to low MCV, patient denies active GI bleeding, however given prior history of NSAID use, recommend to assess with EGD and colonoscopy once clear by cardiology. It was a pleasure to see Camilo Curry today in clinic. Significant amount of time was spend on counseling and answering patient questions. Patient verbalized understanding and agreement as previously mentioned. Elian Ramsey M.D. block machine operator Division of Gastroenterology Transplant Hepatology Section documented in this encounter Plan of Treatment Not on file documented as of this encounter Results * US Liver W [...] visualized. Electronically signed by: Kory Villareal M.D. us Elian Draper MD IMG US PROCE DURES Final Result * Lmihz-2-Wfaonwivmdh, Tumor Marker (08/30/2020 10:27 AM CDT) alpha Fetoprotein 3.5 0.0 - 8.3 ng/mL [facility] Comment: Interpretive Data On July 29, 2016 new Chemistry Instrumentation was implemented. ??If you have any questions, please contact the Laboratory at [phone]. Testing performed by: [facility], [address] [place] [address]., [id number] Blood specimen (specimen) 08/30/2020 10:27 AM CDT 08/30/2020 12:11 PM CDT Elian Draper MD LAB BLOOD OR DERABLES Final Result [facility] [address] [facility]. Department of Laboratories [place], [place] [id number] * (ABNORMAL) Protime-INR (08/30/2020 10:27 AM CDT) PT 14.8(H) 11.5 - 14.0 sec [facility] INR 1.1 0.9 - 1.1 [facility] Comment: Interpretive data Oral anticoagulant therapeutic ranges: Venous thromboembolism prophylaxis or treatment: 2.0-3.0 CARDIOLOGY Standard range: 2.0-3.0 High-intensity range: 2.5-3.5 Refer to indication-specific guidelines for appropriate target ranges for prosthetic heart valve replacement. Current interpretive data was last revised on 2019. Blood specimen (specimen) 08/30/2020 10:27 AM CDT 08/30/2020 11:00 AM CDT us Elian Draper MD LAB BLOOD OR DERABLES Final Result [facility] [address] [facility] Department [place] [address] * (ABNORMAL) Comprehensive metabolic panel (08/30/2020 10:27 AM CDT) Sodium 138 135 - 145 mmol/L [facility] Comment:MOB2 Potassium, pl 4.1 3.3 - 4.9 mmol/L [facility] Comment:MOB2 Chloride 99 97 - 110 mmol/L [facility] Comment:MOB2 CO2 26 22 - 32 mmol/L [facility] Comment:MOB2 Anion gap 13 2 - 15 mmol/L [facility] Comment:MOB2 BUN 15 8 - 25 mg/dL [facility] Comment:MOB2 Creatinine 0.66(L) 0.80 - 1.30 mg/dL [facility] Comment:MOB2 Glucose 377(H) 70 - 199 mg/dL [facility] Comment: Result called by [email or web address] at 2020-08-30 11:39:26. Result Read Back by [email or web address] Interpretive Data Fasting glucose >/= 126 mg/dl [...] interpretive data was last revised 2017. Calcium 9.0 8.5 - 10.3 mg/dL [facility] Comment:MOB2 Bilirubin, total 1.1 0.1 - 1.2 mg/dL [facility] Comment:MOB2 Protein, pl 7.0 6.5 - 8.5 g/dL [facility] Comment:MOB2 Albumin 3.9 3.5 - 5.0 g/dL [facility] Comment:MOB2 Alk phos 71 40 - 130 Units/L [facility] Comment:MOB2 ALT 67(H) 7 - 55 Units/L [facility] Comment:MOB2 AST 68(H) 10 - 50 Units/L [facility] Comment:MOB2 Blood specimen (specimen) 08/30/2020 10:27 AM CDT 08/30/2020 11:00 AM CDT us Elian Draper MD LAB BLOOD OR DERABLES Final Result [facility] [address] [facility]. Department [place] [address] * (ABNORMAL) CBC without differential (08/30/2020 10:27 AM CDT) Pathologist [facility] WBC 3.3(L) 3.8 - 9.9 K/cumm [facility] Hgb 8.4(L) 13.0 - 17.5 g/dL [facility] Hct 31.1(L) 38.9 - 50.3 % [facility] Plt 80(L) 150 - 400 K/cumm [facility] MPV 10.4 9.1 - 12.3 fL [facility] RBC 4.42 4.30 - 5.80 M/cumm [facility] MCV 70(L) 81 - 96 fL [facility] MCH 19.0(L) 27.1 - 33.3 pg [facility] MCHC 27.0(L) 32.3 - 35.7 g/dL [facility] RDW CV 18.0(H) 11.1 - 14.9 % [facility] RDW SD 44.9 35.7 - 48.1 fL [facility] Blood specimen (specimen) 08/30/2020 10:27 AM CDT 08/30/2020 10:28 AM CDT Elian Draper MD LAB BLOOD OR DERABLES Final Result [facility] [address] [facility]. 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 Duplicate order 01/21/2016 08/30/2020 documented as of this encounter Orders Outpatient Referral Count Last Ordered Date Fir st Ordered Date AMB REFERRAL TO GASTROENTEROLOGY 1 08/31/19 21 documented in this encounter Care Teams Residential Sales Consultant Relationship Specialty Start Date End Date Braydon Pavon PA [address] [place] [address] PCP - General Family Practice 05/09/20 05/19/21 Nikolay Lancaster MD [address] [place] [address] 05/09/20 05/19/21 documented as of this encounter
--- OUTSIDE RECORDS SUMMARY | 2024-04-19 23:08 | XMS_ITS | Encounter Summary ---
Author Organization [facility] Address [address] [place] [address] Care Team Providers Care Supervisor Clam Bed Name Role Phone Braydon Pavon Primary Care Provider [phone] Nikolay Lancaster MD Unavailable [phone] Simon Lundberg MD Primary Care Provider [phone] Nacho Rodriguez MD Unavailable [phone] Elian Gross MD Unavailable Braydon Pavon Primary Care Provider Encounter Details Date Type Department Care Team (Late st Contact Info) Description 09/14/[address] 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 Gender Identity Male 10/29/2020 12:37 PM CDT Sexual Orientation Straight 10/29/2020 12 :37 PM CDT documented as of this encounter Plan of Treatment Not on file documented as of this encounter Visit Diagnoses Not on filedocumented in this encounter Care Teams Supervisor Clam Bed Relationship Specialty Start Date End Date Braydon Pavon PA [address] [place] [address] PCP - General Family Practice 05/09/20 05/19/21 Simon Lundberg MD [address] [place] [address] PCP - General Family Medicine 05/20/21 08/22/21 Braydon Pavon PA [address] [place] [address] PCP - General 08/23/21 Nikolay Lancaster MD [address] [place] [address] 05/09/20 05/19/21 [place] [id number] [address] [facility] [address] [address] Consulting Physician Endocrinology 05/20/21 [place] [address] [address] [facility] [address] [address] Consulting Physician Internal Medicine 05/20/21 documented as of this encounter
--- OUTSIDE RECORDS SUMMARY | 2024-04-19 23:08 | XMS_ITS | Encounter Summary ---
Author Organization [facility] Address [address] [place] [address] Care Team Providers Care Sales Porter Name Role Phone Braydon Pavon Primary Care Provider [phone] Nikolay Lancaster MD Unavailable [phone] Reason for Visit * Reason Onset Date Comments Forms/questionnaires 10/31/2020 PA for Guidoem pic Encounter Details Date Type Department Care Team (Late st Contact Info) Description 10/31/2020 [facility]phone [facility] [address] 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 Gender Identity Male 10/29/2020 12:37 PM CDT Sexual Orientation Straight 10/29/2020 12 :37 PM CDT documented as of this encounter Ordered Prescriptions Prescription Sig Dispense Quantity Refills Last Filled Start Date End Date BD Ultra-Fine Short Pen Needle 31 gauge x 5/16 needle Inject 1 each under the skin daily To be used with the victoza 100 each 3 11/07/2020 liraglutide (Victoza 3-Anatoliy) 0.6 mg/0.1 mL (18 mg/3 mL) injectionIndicatio ns:type 2 diabetes mellitus Inject 1.8 mg under the skin daily Indications: type 2 diabetes mellitus 3 pen 3 11/07/2020 2 documented in this encounter Miscellaneous Notes * Addendum Note - Riddhi Epps MA - 11/07/2020 9:47 AM CDTAddended by: RIDDHI EPPS on: 11/07/2020 09:47 AM Modules accepted: Orders * Telephone Encounter - Riddhi Epps MA - 11/07/2020 9:47 AM CDT rx sent to [facility] for the victoza and the pen needles * Telephone Encounter - Chester Martniez - 11/07/2020 9:36 AM CDT I spoke to patient; patient was informed SR message and voiced understanding Please send script to [facility] in [facility] * Telephone Encounter - Riddhi Epps MA - 11/07/2020 8:55 AM CDT lmom for the pt to call the office Please give him dr reddys message I will send rx for the victoza after we speak with the pt * Telephone Encounter - Nacho Rodriguez MD - 11/06/2020 4:00 PM CDT Please call patient and notify that Ozempic is not covered by his insurance Finish up Ozempic sample - and then switched to Victoza 1.8 mg subQ daily ( please make sure patient understands that Victoza is a daily injection ) SR * Telephone Encounter - Reyna Leslie - 11/06/2020 1:49 PM CDT Pa for ozempic is denied pt must try byetta 10mcg, victoza 2-anatoliy and 3-anatoliy or byetta 5mcg * Telephone Encounter - Jose Luis Goodrich MA - 10/31/2020 3:09 PM CDT Incoming fax from [employer] stating a PA is needed for Ozempic 1mg dose pen. PA started on CMM. Insurance will follow up/or call insurance with 5-business days. [place]: [id number] documented in this encounter Plan of Treatment Not on file documented as of this encounter Visit Diagnoses Not on filedocumented in this encounter Discontinued Medications Medication Sig Discontinue Reason Start Date End Da te semaglutide (OZEMPIC) 1 mg/dose (4 mg/3 mL) pen injector injectionIndications:Typ e 2 diabetes mellitus with hyperglycemia, with long-term current use of insulin (HCC) Inject 1 mg under the skin every 7 days Formulary change 10/29/2020 11/07/2020 BD ULTRA-FINE SHORT PEN NEEDLE 31 gauge x 5/16 needle Reorder 01/02/2018 11/07/2020 documented as of this encounter Care Teams Sales Porter Relationship Specialty Start Date End Date Braydon Pavon PA [address] [place] [address] PCP - General Family Practice 05/09/20 05/19/21 Nikolay Lancaster MD [address] [place] [address] 05/09/20 05/19/21 documented as of this encounter
--- OUTSIDE RECORDS SUMMARY | 2024-04-19 23:08 | XMS_ITS | Encounter Summary ---
Author Organization [facility] Address [address] [place] [address] Care Team Providers Care Vessel Specialist Name Role Phone Braydon Pavon Primary Care Provider Nikolay Lancaster MD Unavailable [phone] Reason for Visit * Reason Onset Date Comments 1st no show letter 12/24/2020 Encounter Details Date Type Department Care Team (Late st Contact Info) Description 12/24/2020 [facility]phone [facility] [address] [facility] [address] [place] [address] Guicho Lindo, Nacho Lindo [place] [id number] [place] [address] [address] [place] [address] 1st no show letter Social History Tobacco Use Types Packs/Day Years [...] on file 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 Gender Identity Male 10/29/2020 12:37 PM CDT Sexual Orientation Straight 10/29/2020 12 :37 PM CDT documented as of this encounter Miscellaneous Notes * Telephone Encounter - Riddhi Epps MA - 12/24/2020 4:48 PM CDT Pt of sr The pt had appt today and n/s no call Mailed 1st no show letter to the pt documented in this encounter Plan of Treatment Not on file documented as of this encounter Visit Diagnoses Not on filedocumented in this encounter Care Teams Vessel Specialist Relationship Specialty Start Date End Date Braydon Pavon PA [address] [place] [address] PCP - General Family Practice 05/09/20 05/19/21 Nikolay Lancaster MD [address] [place] [address] 05/09/20 05/19/21 documented as of this encounter
--- OUTSIDE RECORDS SUMMARY | 2024-04-19 23:08 | XMS_ITS | Encounter Summary ---
Author Organization [facility] Address [address] [place] [address] Phone Care Team Providers Care Microbiology Lab Assistant Name Role Phone Braydon Pavon Primary Care Provider [phone] Nikolay Lancaster MD Unavailable [phone] Encounter Details Date Type Department Care Team (Late st Contact Info) Description 12/19/2020 Telephone 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 If not any of this symptoms he may just remain vigilant. Likely is related to intubation done by anesthesia. Thank you ----- Message ----- From: Brianna Vázquez LPN Sent: 12/19/2020 10:21 AM CDT To: Elian Draper MD Subject: pt call Pt called, he is c/o pain since his EGD behind his sternum that increases when he coughs or sneezes, he was instructed to go to the ED if it didn't resolve by today. He reports that it has gotten slightly better, but he is still in some pain, and he wants to know if thisa is to be expected or if heshould go to the ED. Thanks. documented in this encounter Plan of Treatment Not on file documented as of this encounter Visit Diagnoses Not on filedocumented in this encounter Care Teams Microbiology Lab Assistant Relationship Specialty Start Date End Date Braydon Pavon PA [address] [place] [address] PCP - General Family Practice 05/09/20 05/19/21 Nikolay Lancaster MD [address] [place] [address] 05/09/20 05/19/21 documented as of this encounter
--- OUTSIDE RECORDS SUMMARY | 2024-04-19 23:08 | XMS_ITS | Encounter Summary ---
Author Organization [facility] Address [address] [place] [address] Care Team Providers Care Safety Clothing And Equipment Developer Name Role Phone Braydon Pavon Primary Care Provider [phone] Nikolay Lancaster MD Unavailable [phone] Reason for Visit * Reason Onset Date Comments Surgical Clearance 09/06/2020 Encounter Details Date Type Department Care Team (Late st Contact Info) Description 09/06/2020 [facility] Rn Progressive Care Unit [address] [place] [address] [address] [place] [address] Monet Leigh MA Surgical Clearance Social History Tobacco Use Types Packs/Day Years [...] on file 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 Monet WIGGINS * Telephone Encounter - Timothy Peterson DO - 09/07/2020 2:58 PM CDT Patient should be at no increased cardiovascular risk * Telephone Encounter - Monet Leigh MA - 09/06/2020 2:[address] Estrada is wanting to see if pt is cleared for upper endoscopy and colonoscopy under monitored anesthesia. Please advise ... Monet WIGGINS documented in this encounter Plan of Treatment Not on file documented as of this encounter Visit Diagnoses Not on filedocumented in this encounter Care Teams Safety Clothing And Equipment Developer Relationship Specialty Start Date End Date Braydon Pavon PA [address] [place] [address] PCP - General Family Practice 05/09/20 05/19/21 Nikolay Lancaster MD [address] [place] [address] 05/09/20 05/19/21 documented as of this encounter
--- OUTSIDE RECORDS SUMMARY | 2024-04-19 23:08 | XMS_ITS | Encounter Summary ---
Author Organization [facility] Address [address] [place] [address] Phone Care Team Providers Care Septic Tank Service Technician Name Role Phone Braydon Pavon Primary Care Provider [phone] Nikolay Lancaster MD Unavailable [phone] Encounter Details Date Type Department Care Team (Late st Contact Info) Description 12/17/2020 Documentation [facility] Gastroenterology [address] 8th [place] [address] [place] [address] Niraj Anderson MD [address] [place] [address] Social History Tobacco Use Types Packs/Day Years [...] on file 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 Briefly patient is a 50-year-old patient with cirrhosis and had an upper and lower endoscopy today and was also intubated for these procedures. EGD demonstrated grade 1 esophageal varices, portal hypertensive gastropathy, but was otherwise normal. He reports that shortly after getting home he has developed a bit of a sore throat she had a point where even swallowing liquids causes a bit of odynophagia. He otherwise denies any nausea,vomiting, fevers, chills, dysphagia. Suspect this may be related to self-limited hypo pharyngeal/glottal edema from both EGD and intubation. Advised the patient to remain on a liquid diet for today, and use lozenges p.r.n. for pain control. Patient to call back if symptoms should worsen. He voiced understanding and had no further questions. documented in this encounter Plan of Treatment Not on file documented as of this encounter Visit Diagnoses Not on filedocumented in this encounter Care Teams Septic Tank Service Technician Relationship Specialty Start Date End Date Braydon Pavon PA [address] [place] [address] PCP - General Family Practice 05/09/20 05/19/21 Nikolay Lancaster MD [address] [place] [address] 05/09/20 05/19/21 documented as of this encounter
--- OUTSIDE RECORDS SUMMARY | 2024-04-19 23:08 | XMS_ITS | Encounter Summary ---
Author Organization [facility] Address [address] [facility] [place] [address] Phone Care Team Providers Care Assembler Unit Name Role Phone Kris Soto MD Primary Care Provide r Encounter Details Date Type Department Care Team (Latest Contact Info) Description 02/22/2018 8:30 AM CDT Office Visit [facility] Gastroenterology [address] 2nd [address] [place] [address] Kathryn Ellis MD [address] [facility] [address] [place] [address] S/P TIPS (transjugular intrahepatic portosystemic shunt) (Primary Dx); Other cirrhosis of liver (CMS/HCC) Social History Tobacco Use Types Packs/Day Years Used Date Smoking Tobacco: Former Smokeless Tobacco: Never Alcohol Use Standard Drinks/Week Comments No 0 (1 standard drink = 0.6 oz pur e alcohol) Sex and Gender Information Value Date Recorded Sex Assigned at Not on file 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 Gender Identity Male 10/29/2020 12:37 PM CDT Sexual Orientation Straight 10/29/2020 12 :37 PM CDT documented as of this encounter Last Filed Vital Signs Vital Sign Reading Time Taken Comments Blood Pressure 130/81 02/22/2018 8:52 AM CDT Pulse 91 02/22/2018 8:52 AM CDT Temperature 36.7 ??C (98.1 ??F) 02/22/2018 8:52 AM CD T Respiratory Rate - - Oxygen Saturation 95% 02/22/2018 8:52 AM CDT Inhaled Oxygen Concentration - - Weight 123.9 kg (273 lb 1.6 oz) 02/22/2018 8:52 AM CDT Height 172.7 cm (5' 8 ) 02/22/2018 8:52 AM CDT Body Mass Index 41.52 02/22/2018 8:52 AM CDT documented in this encounter Progress Notes * Kathryn Ellis MD - 02/22/2018 8:30 AM CDT Hepatology Clinic Follow Up Note Patient is a 47 y.o. male with chief complaint of complications of cirrhosis HPI: This is a 47-year-old male with decompensated Le cirrhosis status post TIPS for recurrent variceal bleeding complicated by portosystemic encephalopathy who is here for follow-up. The patient has chronic right upper quadrant pain for which he takes ibuprofen and acetaminophen even against medical recommendations. He reports that he was not receiving adequate number of pills with his narcotic prescription from his pain specialist. He is now reporting worsening low back pain and is asking about his surgical risks. More recently, he was admitted with abdominal pain and diarrhea thought due to viral enteritis. This had resolved and so he left prior to being seen by our inpatient team. His hepatic encephalopathy is reasonably controlled on lactulose and rifaximin. He had a sonogram that showed diminished velocity within his TIPS with no ascites. Current Outpatient Prescriptions Medication Sig Dispense Refill ??? ALPRAZolam (XANAX) [...] 500 unit/mL (3 mL) CONCENTRATED injection ??? insulin regular U-500 (HumuLIN R U-500) 500 unit/mL CONCENTRATED injection Inject 150 Units under the skin 3 (three) times a day before meals. ??? lactulose solution 10 gram/15mL ??? lactulose solution 10 gram/15mL TAKE 30MLS BY MOUTH FOUR TIMES A DAY NEEDED ??? omeprazole (PriLOSEC) 20 mg capsule Take 20 mg by mouth daily. ??? ONETOUCH DELICA LANCETS 30 gauge misc ??? ONETOUCH ULTRA BLUE TEST STRIP strip ??? PROVENTIL HFA 90 mcg/actuation inhaler ??? rifAXIMin (XIFAXAN) 550 mg tablet Take 550 mg by mouth. ??? ALPRAZolam (XANAX) 0.5 mg tablet Take 0.5 mg by mouth as needed for anxiety. ??? HYDROcodone-acetaminophen (NORCO) 10-325 mg per tablet as directed for pain prn ??? omeprazole (PriLOSEC) 20 mg capsule 2 times daily. ??? ondansetron (ZOFRAN) 4 mg tablet Take 4 mg by mouth every 8 (eight) hours as needed for nausea or vomiting. ??? ondansetron (ZOFRAN) 4 mg tablet take 1 tab every 8 hours prn nausea and vomitting ??? rifAXIMin (XIFAXAN) 550 mg tablet 2 times daily. ??? traMADol (ULTRAM) 50 mg tablet TAKE 1 TABLET 3 TIMES DAILY NEEDED. ??? UNKNOWN TO PATIENT Humalog U 500 150 units bid 100-150 units hs No current facility-administered medications for this visit. Allergies Allergen Reactions ??? Ciprofloxacin Other (See comments), Shortness of breath and Urticaria Reaction: URTICARIA;, ??? Penicillins Anaphylaxis, Other (See comments), Hives and Shortness of breath Reaction: ??? Dye Unknown and Swelling ??? Erythromycin Hives and Other (See comments) Reaction: Reaction: HIVES, ??? Esomeprazole Hives and Other (See comments) Reaction: Reaction: HIVES, Dr. Vigil okay with giving protonix ??? Iv Contrast Dye [Iodinated Contrast- Oral And Iv Dye] Other (See comments), Edema and Swelling Reaction: Reaction: SWELLING, unk ??? Nexium [Esomeprazole Magnesium] Hives ??? Penicillin Hives Reaction: HIVES, ??? Sulfa (Sulfonamide Antibiotics) Hives and Other (See comments) Reaction: Reaction: HIVES, ??? Prochlorperazine Unknown ??? Azactam [Aztreonam] Other (See comments) and Unknown Reaction: UNKNOWN, unk ??? Duloxetine Other (See comments) and Nausea only hives ??? Octreotide Other (See comments) unk Review of Systems: Positive for what was in the HPI, the rest are negative. Vitals: Arrival Vitals [02/22/18 0852] Temp 36.7 ??C (98.1 ??F) Pulse 91 Resp BP 130/81 SpO2 95 % Temp src Heart Rate Source Patient Position BP Location FiO2 (%) Objective Physical exam: Vitals reviewed. Constitutional: Oriented to person, place, and time and well-developed, well- nourished, and in no distress. morbidly obese HENT: Head: Normocephalic and atraumatic. Mouth/Throat: Oropharynx is clear and moist. No oropharyngeal exudate. Eyes: Pupils are equal, round, and reactive to light. No scleral icterus. Neck: Neck supple. Cardiovascular: Normal rate. Regular rhythm. No murmurs. Pulmonary/Chest: Effort normal. No wheezes. No rales. Abdominal: Obese. Soft. There is no tenderness. There is no rebound and no guarding. Musculoskeletal: Normal range of motion. No edema. Neurological: Alert and oriented to person, place, and time. Skin: Skin is warm. No rash noted. Psychiatric: Mood and affect normal. Lab/Radiology/Diagnostic Review: I have reviewed the patient's labs and diagnostic tests. Assessment and Plan: This is a 47-year-old male with LE cirrhosis who has intermittent portosystemic encephalopathy after TIPS for variceal bleed. His liver function remains stable and his meld score low for transplantevaluation. Le cirrhosis. His complications are reasonably controlled on medical therapy. I recommended weight loss through healthier eating habits but the patient is noncompliant with this recommendations. I asked for a food diary during his next visit. Portosystemic encephalopathy. He will continue lactulose and rifaximin. Portal hypertension status post TIPS. I have ordered a follow-up Doppler ultrasound in 3 months to evaluate for TIPS stenosis. Hepatocellular carcinoma screening is up-to-date Chronic abdominal pain and low back pain. I continued to encourage avoidance of nonsteroidal anti-inflammatories and minimization of narcotic use. If he is interested in a surgical option for his lowback pain, I will await the consult note and I can discuss his risks with the surgeon. I would recommend he optimization of his diabetes and weight loss prior to pursuing back surgery. Return to clinic in 4 months Please feel free to contact me at [phone] for any questions or concerns regarding my assessment and plan. Kathryn Ellis M.D. Wound Nurse Hepatology Program documented in this encounter Plan of Treatment Scheduled Orders Name Type Priority Associated Diagnoses Orde r Schedule Comprehensive metabolic panel Lab Routine S/P TIPS (transjugular intrahepatic portosystemic shunt) Other cirrhosis of liver (CMS/HCC) Expected: 02/22/2018, Expires: 08/24/2019 CBC with auto differential Lab Routine S/P TIPS (transjugular intrahepatic portosystemic shunt) Other cirrhosis of liver (CMS/HCC) Expected: 02/22/2018, Expires: 08/24/2019 Protime-INR Lab Routine S/P TIPS (transjugular intrahepatic portosystemic shunt) Other cirrhosis of liver (CMS/HCC) Expected: 02/22/2018, Expires: 02/22/2019 [id number], Tumor Marker Lab Routine S/P TIPS (transjugular intrahepatic portosystemic shunt) Other cirrhosis of liver (CMS/HCC) Expected: 02/22/2018, Expires: 02/22/2019 Vitamin D 25 hydroxy Lab Routine S/P TIPS (transjugular intrahepatic portosystemic shunt) Other cirrhosis of liver (CMS/HCC) Expected: 02/22/2018, Expires: 02/22/2019 documented as of this encounter Visit Diagnoses Diagnosis S/P TIPS (transjugular intrahepatic portosystemic shunt)- Primary Other postprocedural status Other cirrhosis of liver (HCC) documented in this encounter Historical Medications * This list may reflect changes made after this encounter. Medication Sig Dispense Quantity Refills Last Filled Start D ate End Date busPIRone (BUSPAR) 10 mg tabletIndications:Gen eralized Anxiety Disorder 02/11/2018 05/09/2020 added in this encounter Care Teams Assembler Unit Relationship Specialty Start Date End Date Kris Soto MD [address] [place] [address] PCP - General 12/08/16 10/26/18 documented as of this encounter
--- OUTSIDE RECORDS SUMMARY | 2024-04-19 23:08 | XMS_ITS | Encounter Summary ---
Author Organization [facility] Address [address] [place] [address] Phone Care Team Providers Care Outplacement Consultant Name Role Phone Braydon Pavon Primary Care Provider [phone] Nikolay Lancaster MD Unavailable [phone] Reason for Visit * Reason Onset Date Comments GI Pre Procedure Assessment 11/27/2020 Encounter Details Date Type Department Care Team (Late st Contact Info) Description 11/27/2020 Telephone [facility] Gastroenterology [address] 8[address] [place] [address] [place] [address] Faith Hooker GI Pre Procedure Assessment Social History Tobacco Use Types Packs/Day Years [...] on file 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 ----- Message from Brianna Vázquez LPN sent at 11/07/2020 1:14 PM CDT ----- Regarding: EGD/ colon Please reschedule his EGD and Colon, he had to cancel his 11/02 procedure due to being ill. Thanks! PROCEDURE Type: Indication: Referring Physician: Date Referred: CLINICAL ASSESSMENT [x]COVID Screening questions [] Covid vaccination yes [x]BMI>45, Weight >350 lbs BMI Readings from Last 1 Encounters: 10/29/20 40.02 kg/m?? Wt Readings from Last 1 Encounters: 10/29/20 119.4 kg (263 lb 3.2 oz) [] Patient had GI procedure/CPAP clinic/GI clinic <30 days (if Yes, no medical screening questions needed unless new clinical issues in last 30 days) Medical screening questions: BMI/Weight: NA CARDIOVASCULAR: None Chest pain noted in the past, local agriculture professor cleared him for procedures RESPIRATORY/LUNG: None RENAL/LIVER/GI: Cirrhosis- If therapeutic procedure (other than EGD for varices) or if colonoscopy,need recent plt>50 and fibrinogen >120. Otherwise escalate to physician to consider cryoprecipiate or BRIT BLEEDING/CLOTTING: None NEUROLOGICAL: None ENDOCRINE: Diabetes- No BG above 250 or AIC >10 for SC. No BG =>400 for [facility]. 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/: NA IMPLANTS.: None Notes: DIABETIC MEDS Y/N: [...] : [] Location limitations: Scheduling Scheduling location limitations:NONE Detasseling Crew Supervisor needed [x] NA Language: POA [x] NA Name: SPECIAL PROCEDURE INSTRUCTIONS Procedure information Date of procedure: 12-17-2020 Time of procedure: 10:15 am Arrival time: 9:15 am Location: [facility] [place] Proceduralist: Elian Estrada Instructions Method of instructions: Mailed copy and Verbal [x]Confirmation of ride/telephone clerk telegraph office [x]Post anesthesia restrictions given [x]NPO Instructions: [x]Diet Instructions: [x]Take non-blood thinner prescription meds that morning [x]Bring med list, photo ID, insurance card, no valuables [x]Bring COVID vaccination card (if vaccinated) Bowel Prep Prep prescribed: NA Method of Bowel Prep (RX): NA documented in this encounter Plan of Treatment Not on file documented as of this encounter Visit Diagnoses Not on filedocumented in this encounter Care Teams Outplacement Consultant Relationship Specialty Start Date End Date Braydon Pavon PA [address] [place] [address] PCP - General Family Practice 05/09/20 05/19/21 Nikolay Lancaster MD [address] [place] [id number] 05/09/20 05/19/21 documented as of this encounter
--- OUTSIDE RECORDS SUMMARY | 2024-04-19 23:08 | XMS_ITS | Encounter Summary ---
Author Organization [facility] Address [address] [place] [address] Care Team Providers Care Wire Inspector Name Role Phone Braydon Pavon Primary Care Provider [phone] Nikolay Lancaster MD Unavailable [phone] Reason for Visit * Reason Onset Date Comments Forms/questionnaires 10/31/2020 PA for Free style [employer] Encounter Details Date Type Department Care Team (Late st Contact Info) Description 10/31/2020 Telephone [facility] [address], [place] [address] [place] [address] [facility], [place] [address] Forms/questionnaires (PA for Freestyle [employer]) Social History Tobacco Use Types Packs/Day Years [...] on file 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 Denial scanned into pt's chart. Called and spoke with pt. Relayed this information. Pt voiced understanding and has no further questions. * Telephone Encounter - Jose Luis Goodrich MA - 10/31/2020 3:14 PM CDT Incoming fax from [employer] stating a PA is needed for Freestyle Elijah [employer]ensor. PA started on CMM. Check with insurance within 5-business days. [place]: [id number] documented in this encounter Plan of Treatment Not on file documented as of this encounter Visit Diagnoses Not on filedocumented in this encounter Care Teams Wire Inspector Relationship Specialty Start Date End Date Braydon Pavon PA [address] [place] [address] PCP - General Family Practice 05/09/20 05/19/21 Nikolay Lancaster MD [address] [place] [address] 05/09/20 05/19/21 documented as of this encounter
--- OUTSIDE RECORDS SUMMARY | 2024-04-19 23:08 | XMS_ITS | Encounter Summary ---
Author Organization [facility] Address [address] [place] [address] Phone Care Team Providers Care Longshore Equipment Operator Name Role Phone Braydon Pavon Primary Care Provider [phone] Nikolay Lancaster MD Unavailable [phone] Encounter Details Date Type Department Care Team (Late st Contact Info) Description 08/30/2020 10:25 AM CDT Lab [facility] [address] [facility] [address] [place] [address] Elian Gross MD [address] [facility] [address] [place] [address] 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); S/P [...] on file 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 Gender Identity Male 10/29/2020 12:37 PM CDT Sexual Orientation Straight 10/29/2020 12 :37 PM CDT documented as of this encounter Discharge Disposition Disposition Code Departure Means Destination Discharge to home or self care documented in this encounter Plan of Treatment Not on file documented as of this encounter Procedures Procedure Name Priority Date/Time Associated Diagnosis Comments EGFR Routine 08/30/2020 10:27 AM CDT 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) S/P TIPS (transjugular intrahepatic portosystemic shunt) [id number], TUMOR MARKER Routine 08/30/2020 10:27 AM CDT 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) S/P TIPS (transjugular intrahepatic portosystemic shunt) PROTIME-INR Routine 08/30/2020 10:27 AM CDT 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) S/P TIPS (transjugular intrahepatic portosystemic shunt) CBC WITHOUT DIFFERENTIAL Routine 08/30/2020 10:27 AM CDT 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 60 - 89 mL/min/1.73m2 Mildly to moderately decreased ?45 - 59 mL/min/1.73m2 Moderately to severely decreased ??30 - 44 mL/min/1.73m2 Severely decreased ?15 - 29 mL/min/1.73m2 Kidney Failure ?< 15 ??mL/min/1.73m2 *Relative to young adult level Estimated glomerular filtration rate is determined by the CKD-EPI equation recommended by the National Kidney Foundation (KDIGO 2012 Clinical Practice Guideline for the Evaluation and Management of Chronic Kidney Disease. Kidney Intnl Suppl May 2012;3:1). The CKD-EPI equation should not be used for patients with unstable renal function and has not been validated in children and those over 70. Current interpretive data was last reviewed 2020 Blood specimen (specimen) 08/30/2020 10:27 AM CDT 08/30/2020 11:00 AM CDT us Elian Draper MD LAB BLOOD OR DERABLES Final Result [facility] [address] [facility]. Department [place] [address] * (ABNORMAL) CBC without differential (08/30/2020 10:27 AM CDT) WBC 3.3(L) 3.8 - 9.9 K/cumm [facility] Hgb 8.4(L) 13.0 - 17.5 g/dL [facility] Hct 31.1(L) 38.9 - 50.3 % [facility] Plt 80(L) 150 - 400 K/cumm [facility] MPV 10.4 9.1 - 12.3 fL [facility] RBC 4.42 4.30 - 5.80 M/cumm [facility] MCV 70(L) 81 - 96 fL [facility] MCH 19.0(L) 27.1 - 33.3 pg [facility] MCHC 27.0(L) 32.3 - 35.7 g/dL [facility] RDW CV 18.0(H) 11.1 - 14.9 % [facility] RDW SD 44.9 35.7 - 48.1 fL [facility] Blood specimen (specimen) 08/30/2020 10:27 AM CDT 08/30/2020 10:28 AM CDT us Elian Draper MD LAB BLOOD OR DERABLES Final Result [facility] [address] [facility] Department [place] [address] * (ABNORMAL) Comprehensive metabolic panel (08/30/2020 10:27 AM CDT) Sodium 138 135 - 145 mmol/L [facility] Comment:MOB2 Potassium, pl 4.1 3.3 - 4.9 mmol/L [facility] Comment:MOB2 Chloride 99 97 - 110 mmol/L [facility] Comment:MOB2 CO2 26 22 - 32 mmol/L [facility] Comment:MOB2 Anion gap 13 2 - 15 mmol/L [facility] Comment:MOB2 BUN 15 8 - 25 mg/dL [facility] Comment:MOB2 Creatinine 0.66(L) 0.80 - 1.30 mg/dL [facility] Comment:MOB2 Glucose 377(H) 70 - 199 mg/dL [facility] Comment: Result called by [id number] at 2020-08-30 11:39:26. Result Read Back by [...] 2017. Calcium 9.0 8.5 - 10.3 mg/dL [facility] Comment:MOB2 Bilirubin, total 1.1 0.1 - 1.2 mg/dL [facility] Comment:MOB2 Protein, pl 7.0 6.5 - 8.5 g/dL [facility] Comment:MOB2 Albumin 3.9 3.5 - 5.0 g/dL [facility] Comment:MOB2 Alk phos 71 40 - 130 Units/L [facility] Comment:MOB2 ALT 67(H) 7 - 55 Units/L [facility] Comment:MOB2 AST 68(H) 10 - 50 Units/L [facility] Comment:MOB2 Blood specimen (specimen) 08/30/2020 10:27 AM CDT 08/30/2020 11:00 AM CDT us Elian Draper MD LAB BLOOD OR DERABLES Final Result Performing Organization Address [facility] de Phone Number [facility] [address] [place] [address] * (ABNORMAL) Protime-INR (08/30/2020 10:27 AM CDT) PT 14.8(H) 11.5 - 14.0 sec [facility] [place] [facility] INR 1.1 0.9 - 1.1 [facility] [place] [facility] Comment: Interpretive data Oral anticoagulant therapeutic ranges: Venous thromboembolism prophylaxis or treatment: 2.0-3.0 CARDIOLOGY Standard range: 2.0-3.0 High-intensity range: 2.5-3.5 Refer to indication-specific guidelines for appropriate target ranges for prosthetic heart valve replacement. Current interpretive data was last revised on 2019. Blood specimen (specimen) 08/30/2020 10:27 AM CDT 08/30/2020 11:00 AM CDT us Elian Draper MD LAB BLOOD OR DERABLES Final Result Performing Organization Address [facility] Co de Phone Number [facility] [address] [employer]. [place] [address] * [id number], Tumor Marker (08/30/2020 10:27 AM CDT) alpha Fetoprotein 3.5 0.0 - 8.3 ng/mL [facility] Comment: Interpretive Data On July 29, 2016 new Chemistry Instrumentation was implemented. ??If you have any questions, please contact the Laboratory at [phone]. Testing performed by: [facility], [facility] [facility], [place]., [address] Blood specimen (specimen) 08/30/2020 10:27 AM CDT 08/30/2020 12:11 PM CDT us Elian Draper MD LAB BLOOD OR DERABLES Final Result [facility] [address] [facility]. 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
--- OUTSIDE RECORDS SUMMARY | 2024-04-19 23:08 | XMS_ITS | Encounter Summary ---
Author Organization [facility] Address [address] [place] [address] Care Team Providers Care Dredge Pump Operator Name Role Phone Braydon Pavon Primary Care Provider [phone] Nikolay Lancaster MD Unavailable [phone] Reason for Visit * Reason Onset Date Comments patient call other 07/03/2020 Encounter Details Date Type Department Care Team (Late st Contact Info) Description 07/03/2020 Telephone [facility] Specialists [facility] [address] [facility] [address] [place] [address] [place]ich[place] Lind[place], [place] [address] [facility] [address] [address] patient call other Social History Tobacco Use Types Packs/Day Years Used Date Smoking Tobacco: Former Smokeless Tobacco: Never Alcohol Use Standard Drinks/Week Comments No 0 (1 standard drink = 0.6 oz pur e alcohol) Sex and Gender Information Value Date Recorded Sex Assigned at Not on file 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 Gender Identity Male 10/29/2020 12:37 PM CDT Sexual Orientation Straight 10/29/2020 12 :37 PM CDT documented as of this encounter Miscellaneous Notes * Telephone Encounter - Wanda Bro - 07/03/2020 3:17 PM CST Patient referred to ENDO for diabetes Called patient lmom mailed new patient referral letter Records scanned ING ACCOUNT MANAGER documented in this encounter Plan of Treatment Not on file documented as of this encounter Visit Diagnoses Not on filedocumented in this encounter Care Teams Dredge Pump Operator Relationship Specialty Start Date End Date Braydon Pavon PA [address] [place] [address] PCP - General Family Practice 05/09/20 05/19/21 Nikolay Lancaster MD [address] [place] [address] 05/09/20 05/19/21 documented as of this encounter
--- OUTSIDE RECORDS SUMMARY | 2024-04-19 23:08 | XMS_ITS | Encounter Summary ---
Author Organization [facility] Address [address] [place] [address] Care Team Providers Care Tobacco Grower Name Role Phone Braydon Pavon Primary Care Provider [phone] Nikolay Lancaster MD Unavailable [phone] Encounter Details Date Type Department Care Team (Late st Contact Info) Description 12/17/2020 10:02 AM CDT Anesthesia Event [facility] Endoscopy [address] [place] [address] Bismark Edwards MD [address] [facility] [address] [place] [address] Anesthesia Record Procedure Summary Procedure Name Responsible Anesthesiologist Anesthesia Start Time Anesthesia Stop Time ESOPHAGOGASTRODUODENOSCOPY Bismark Edwards MD 1002 12/17/20 1049 Events Date Time Event Comment 12/17/2020 0919 AN Equip Check 0951 1002 An Start 1005 In Room 1006 An Start Data 1006 Start Supplemental O2 1009 An Induction The patient was reevaluated immediately before moderate or deep sedation use and before anesthesia induction. 1010 An Intubation 1011 Anesthesia Ready 1016 Proc Start 1042 Out of Room 1049 Handoff to RN I completed my handoff to the receiving nurse during which we: 1. Patient identified 2. Responsible provider identified 3. Pertinent medical history reviewed 4. Procedure type and surgical course discussed 5. Intraoperative anesthetic management and any significant issues discussed 6. Expectations and concerns for postop period discussed 7. Questions solicited from receiving nurse 8. Patient disposition at the time of handoff: No value filed. 1049 An Stop Meds Name Total propofol 300 mg Lidocaine IV 2 % 5 mL succinylcholine syringe 100 mg/5 mL 100 mg sodium chloride 0.9% infusion 500 mL * Agents Name O2 Sevoflurane Inspired Sevoflurane * Blood No blood administrations on file. Lines, Drains, and Airways Type Details Placement Removal Peripheral IV Placement Date: 12/02 10/22; Placement Time: 0940; Catheter Size: 22 G; Orientation: Right; Location: Hand; Site Prep: Chlorhexidine; Inserted by: Maira Dugan RN; Insertion Attempts: 1; Patient Tolerance: Tolerated well; Removal Date: 12/17/20; Removal Time: 1122; Removal Reason: Discharge 12/17/20 0940 by Herberth Montgomery RN 12/17/20 1122 by Marine Petty RN ETT Placement Date: 12/02 10/22; Placement Time: 1010; Mask Ventilation: 3; Technique: Direct laryngoscopy; Type: ETT - single; Single Lumen Tube Size: 7.5 mm; Cuffed: Yes; Laryngoscope: Hina; Blade Size: 4; Location: Oral; Grade View: Grade III; Insertion Attempts: 1; Placement Verification: Auscultation, Capnometry, Symmetrical chest wall movement; Removal Date: 12/17/20; Removal Time: 1018 (removed via procedure documentation) 12/17/20 1010 by Judi Vu CRNA 12/17/20 1018 by Judi Vu CRNA ETT Placement Date: 12/02 10/22; Placement Time: 1018 (created via procedure documentation); Mask Ventilation: 3; Technique: Direct laryngoscopy; Type: ETT - single; Single Lumen Tube Size: 7.5 mm; Cuffed: Yes; Laryngoscope: Hina; Blade Size: 4; Location: Oral; Grade View: Grade III; Insertion Attempts: 1; Placement Verification: Auscultation, Capnometry; Removal Date: 12/17/20; Removal Time: 1040 12/17/20 1018 by Judi Vu CRNA 12/17/20 1040 by Marine Petty RN documented in this encounter Social History [...] on file 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 Gender Identity Male 10/29/2020 12:37 PM CDT Sexual Orientation Straight 10/29/2020 12 :37 PM CDT documented as of this encounter OR Notes * Anesthesia Postprocedure Evaluation - Bismark Edwards MD - 12/17/2020 2:43 PM CDT Patient: Camilo Curry Procedure Summary Date: 12/17/20 Room / Location: [facility] ENDOSCOPY ROOM 02 / [facility] ENDOSCOPY Anesthesia Start: 1002 Anesthesia Stop: 1049 Procedures: ESOPHAGOGASTRODUODENOSCOPY (N/A ) COLON BIOPSY (N/A Colon) Diagnosis: Hepatic cirrhosis, unspecified hepatic cirrhosis type, unspecified whether ascites present (HCC) (Hepatic cirrhosis, unspecified hepatic cirrhosis type, unspecified whether ascites present (CMS/HCC) [K74.60]) Providers: Elian Gross MD Responsible Provider: Bismark Edwards MD Anesthesia Type: general ASA Status: 4 Anesthesia Type: general Last vitals BP 161/89 Pulse 99 Temp 36.1 ??C (97 ??F) (Transdermal) Resp 17 SpO2 94% Anesthesia Post Evaluation Patient location during evaluation: PACU Patient participation: complete - patient participated Level of consciousness: fully awake Pain score: 0 Pain management: adequate Airway patency: adequate Evidence of recall: no Cardiovascular status: hemodynamically stable and acceptable Respiratory status: acceptable and room air Hydration status: acceptable Pt is: normothermic Nausea/Vomiting status: none Comments: Initial PACU headache resolved; small area of minor trauma to lower lip, ice applied No complications documented. * Anesthesia Procedure Notes - Judi Vu CRNA - 12/17/2020 10:18 AM CDTAssociated Order(s): Airway Airway Patient location: OR Urgency: elective Indications for airway management: anesthesia Difficult airway: no Staff: Placed by: CHEMICAL RECOVERY OPERATOR: Judi Vu CRNA Airway prep: Preoxygenated: yes Patient position: sniffing Mask difficulty assessment: 3 - difficult mask (inadequate, unstable or two providers) Spontaneous ventilation during airway: absent Sedation level during airway: GA Final airway details: Final airway type: endotracheal airway Tube type: ETT ETT size: 7.5 mm Cuffed: yes Technique used for successful ETT placement: direct laryngoscopy Insertion site: oral Blade type: Hina Blade size: 4 Cormack-Lehane (direct): grade III - view of epiglottis only Cuff inflated with: air Placement verified by: auscultation and CO2 detection Airway secured with: silk tape Number of attempts: 1 * Anesthesia Preprocedure Evaluation - Bismark Edwards MD - 12/17/2020 9:51 AM CDT Images from the original note were not included. Anesthesia Evaluation Camilo Curry is a 50 y.o. male Procedure(s): ESOPHAGOGASTRODUODENOSCOPY COLONOSCOPY Pre-Op Diagnosis Codes: * Hepatic cirrhosis, unspecified hepatic cirrhosis type, unspecified whether ascites present (HCC) [K74.60] Patient Active Problem List Diagnosis ??? RUQ pain ??? 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 History of upper gastrointestinal hemorrhage ??? Nausea vomiting and diarrhea ??? High risk medication use ??? Diabetes mellitus, type 2 (HCC) ??? Bacterial endocarditis ??? Other chest pain ??? Morbid obesity with body mass index (BMI) of 40.0 to 44.9 in adult (CMS/HCC) (HCC) ??? Dyspnea on exertion ??? Diabetic neuropathy associated with type 2 diabetes mellitus (CMS/HCC) (HCC) ??? Vitamin D deficiency Past Medical History: Diagnosis Date ??? DM type 2 (diabetes mellitus, type 2) (HCC) dx 2011 ??? Gallbladder calculus ??? GAVE (gastric antral vascular ectasia) ??? Heart murmur ??? Heart valve disease ??? BLAND (nonalcoholic steatohepatitis) Past Surgical History: Procedure Laterality Date ??? COLONOSCOPY ??? ESOPHAGEAL VARICE LIGATION ??? TIPS INITIAL N/A 11/23/2015 ??? UPPER GASTROINTESTINAL ENDOSCOPY Allergies Allergen Reactions ??? Azactam [Aztreonam] Shortness [...] ??? Prochlorperazine Unknown Poss. hives w/IV dose Med List Status: Nurse Complete Set By: Herberth Montgomery RN at 12/17/2020 9:36 AM Taking? Last Dose Start Date End Date Provider acetaminophen-codeine (TYLENOL with CODEINE #3) 300-30 mg per tablet Past Week -- -- Tyler Page MD ALPRAZolam (XANAX) 0.5 mg tablet More than a month 09/10/15 -- Tyler Page MD amitriptyline (ELAVIL) 25 mg tablet Unknown 11/16/20 -- Tyler Page MD BD Ultra-Fine Short Pen Needle 31 gauge x 09/16 needle 11/07/20 -- Nacho Rodriguez MD Inject 1 each under the skin daily To be used with the victoza clindamycin (CLINDAGEL) 1 % gel More than a month 11/20/20 -- Tyler Page MD [id number] (Virtussin DAC) 2-20-6 mg/mL syrup More than a month -- -- Tyler Page MD cyclobenzaprine (FLEXERIL) 5 mg tablet 12/16/2020 11/09/20 -- Tyler Page MD FreeStyle Elijah 2 Sensor kit 10/29/20 -- Nacho Rodriguez MD One sensor every 14 days gabapentin (NEURONTIN) 600 mg tablet Unknown 10/29/20 10/29/21 Nacho Rodriguez MD Take 1 tablet (600 mg total) by mouth 3 (three) times a day Notes: Not taking HUMULIN R U-500, CONC, KWIKPEN 500 unit/mL (3 mL) CONCENTRATED injection 12/16/2020 01/02/18 -- Tyler Page MD hydroCHLOROthiazide (HYDRODIURIL) 25 mg tablet Unknown -- -- Tyler Page MD ketoconazole (NIZORAL) 2 % cream Unknown 11/20/20 -- Tyler Page MD lactulose solution 10 gram/15mL Past Month 09/10/15 -- Tyler Page MD lidocaine (LIDODERM) 5 % Unknown 11/12/20 -- Tyler Page MD lidocaine (XYLOCAINE) 5 % ointment Unknown 11/16/20 -- Tyler Page MD liraglutide (Victoza 3-Anatoliy) 0.6 mg/0.1 mL (18 mg/3 mL) injection Unknown 11/07/20 -- Nacho Rodriguez MD Inject 1.8 mg under the skin daily Indications: type 2 diabetes mellitus omeprazole (PriLOSEC) 20 mg capsule 12/16/2020 09/10/15 -- Tyler Page MD ondansetron (ZOFRAN) 4 mg tablet 12/16/2020 09/10/15 -- ProviderTyler MD ONETOUCH ULTRA BLUE TEST STRIP strip 01/05/18 -- Tyler Page MD PROVENTIL HFA 90 mcg/actuation inhaler More than a month 01/14/18 -- Tyler Page MD rifAXIMin (XIFAXAN) 550 mg tablet Unknown 08/30/20 -- Elian Gross MD Take 1 tablet (550 mg total) by mouth 2 (two) times a day semaglutide (Ozempic) 1 mg/dose (2 mg/1.5 mL) pen injector injection Unknown 11/07/20 -- Nacho Rodriguez MD Inject 1 mg under the skin every 7 days Sample Lot [id number] Exp 03/03/2023 x 2 pens traMADol (ULTRAM) 50 mg tablet Unknown 12/08/16 -- Tyler Page MD valACYclovir (VALTREX) 1 gram tablet Unknown 11/19/20 -- ProviderTyler MD Current Facility-Administered Medications: ??? sodium chloride 0.9% flush 0.5-20 mL, 0.5-20 mL, intra-catheter, Q8H JOHN ??? sodium chloride 0.9% flush 0.5-20 mL, 0.5-20 mL, intra-catheter, PRN ??? sodium chloride 0.9% infusion, 30 mL/hr, intravenous, Continuous, Last Rate: 30 mL/hr at 12/17/20 0940, 30 mL/hr at 12/17/20 0940 Social History Tobacco Use Smoking Status Former Smoker Smokeless Tobacco Never Used Substance and Sexual Activity Alcohol Use No Substance and Sexual Activity Drug Use No Family History Problem Relation Age of [...] Relation: Grandmother (Added by TW Conv) Vitals: 12/17/20 0930 12/17/20 0935 12/17/20 0940 BP: 119/63 120/68 118/75 Pulse: 100 100 104 Resp: 27 27 28 Temp: SpO2: 99% 99% 98% PT: No results found for requested labs [...] labs within last 720 hours. BMP Glucose: 12/17/2020: 278 mg/dL Calcium: No results found for requested labs [...] Pulmonary Exam: LCTA, bilat Anesthesia Plan ASA 4 My patient is approved for the Anesthesia Controlled Medication protocol when under care of a CHEMICAL RECOVERY OPERATOR Planned anesthesia: General Informed Consent: Anesthesia plan and risks discussed with patient. Plan and Consent Comments: M obesity, cirrhosis, hx TIPS, AODM POC glu 278, 6u reg ins pre Consent and Attending signature: I and/or my [...] Name Priority Date/Time Associated Diagnosis Comments LA AN PROCEDURE PLACEHOLDER Routine 12/17/2020 10:18 AM CDT LA AN ELECTIVE ENDOTRACHEAL AIRWAY Routine 12/17/2020 10:18 AM CDT documented in this encounter Results * LA AN ELECTIVE ENDOTRACHEAL AIRWAY, LA AN PROCEDURE PLACEHOLDER (12/17/2020 10:18 AM CDT) Narrative Judi Vu CRNA - 12/17/2020 10:18 AM CDT Judi Vu CRNA ? 12/17/2020 10:18 AM Airway Patient location: OR Urgency: elective Indications for airway management: anesthesia Difficult airway: no Staff: Placed by: CHEMICAL RECOVERY OPERATOR: Judi Vu CRNA Airway prep: Preoxygenated: yes Patient position: sniffing Mask difficulty assessment: 3 - difficult mask (inadequate, unstable or two providers) Spontaneous ventilation during airway: absent Sedation level during airway: GA Final airway details: Final airway type: endotracheal airway Tube type: ETT ETT size: 7.5 mm Cuffed: yes Technique used for successful ETT placement: direct laryngoscopy Insertion site: oral Blade type: Hina Blade size: 4 Cormack-Lehane (direct): grade III - view of epiglottis only Cuff inflated with: air Placement verified by: auscultation and CO2 detection Airway secured with: silk tape Number of attempts: 1 us Bismark Edwards MD ANESTHESIA ORDERABLES Final R esult documented in this encounter Visit Diagnoses Not on filedocumented in this encounter Administered Medications Inactive Administered Medications - up to 3 most recent administrations Medication Order MAR Action Action Date Dose Rate Site lidocaine (XYLOCAINE) 20 mg/mL (2 %) injection intravenous, As needed, Starting on Thu12/17/20 at 1009, Anesthesia Intra-op, Indications: Administration of Local AnesthesiaIndications:Administrat ion of Local Anesthesia Given 12/17/2020 10:09 AM CDT 5 mL propofoL (DIPRIVAN) 10 mg/mL IV intravenous, As needed, Starting on Thu12/17/20 at 1009, Anesthesia Intra-op Given 12/17/2020 10:09 AM CDT 300 mg sodium chloride 0.9% infusion 30 mL/hr, intravenous, Continuous, Starting on Thu12/17/20 at 1000, Pre-Procedure (GI) Restarted 12/17/2020 10:30 AM CDT Rate/Dose Verify 12/17/2020 10:02 AM CDT 30 mL/ hr New Bag 12/17/2020 9:40 AM CDT 30 mL/hr 30 mL/hr succinylcholine syringe intravenous, As needed, Starting on Thu12/17/20 at 1009, Anesthesia Intra-op Given 12/17/2020 10:09 AM CDT 100 mg documented in this encounter Care Teams Tobacco Grower Relationship Specialty Start Date End Date Braydon Pavon PA [address] [place] [address] PCP - General Family Practice 05/09/20 05/19/21 Nikolay [place] MD [address] [address] 05/09/20 05/19/21 documented as of this encounter
--- OUTSIDE RECORDS SUMMARY | 2024-04-19 23:08 | XMS_ITS | Encounter Summary ---
Author Organization [facility] Address [address] [place] [address] Care Team Providers Care Ore Storage Drier Name Role Phone Braydon Pavon Primary Care Provider [phone] Nikolay Lancaster MD Unavailable [phone] Reason for Visit * Reason Comments Diabetes Type 2 Encounter Details Date Type Department Care Team (Latest Contact Info) Description 10/29/2020 2:30 PM CDT Office Visit [facility] [address] [id number] Guicho Lindo, [place] [id number] [address] Type 2 diabetes mellitus with hyperglycemia, with long-term current use of insulin (CMS/[facility]) (Primary Dx); Diabetic neuropathy associated with type 2 diabetes mellitus (CMS/HCC); Vitamin D deficiency; Morbid obesity with body mass index (BMI) of 40.0 to 44.9 in adult (CMS/HCC) Social History Tobacco Use Types Packs/Day [...] on file 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 Gender Identity Male 10/29/2020 12:37 PM CDT Sexual Orientation Straight 10/29/2020 12 :37 PM CDT documented as of this encounter Last Filed Vital Signs Vital Sign Reading Time Taken Comments Blood Pressure 126/70 10/29/2020 2:39 PM CDT Pulse 108 10/29/2020 2:39 PM CDT Temperature - - Respiratory Rate 16 10/29/2020 2:39 PM CDT Oxygen Saturation - - Inhaled Oxygen Concentration - - Weight 119.4 kg (263 lb 3.2 oz) 10/29/2020 2:39 PM CDT Height 172.7 cm (5' 8 ) 10/29/2020 2:39 PM CDT Body Mass Index 40.02 10/29/2020 2:39 PM CDT documented in this encounter Patient Instructions * Patient Instructions* Nacho Rodriguez MD - 10/29/2020 2:30 PM CDT HbA1c - 9.8 % continue current insulin doses - start ozempic 0.25 mg SQ weekly for 2 weeks than increase to 0.5 mg SQ weekly, once done with samples increase to 1 mg SQ weekly - start checking blood sugars Using Freestyle elijah 2 sensors - work on portion control diet, exercise every day - Get eye exam soon - do labs - fasting - follow up in 6 weeks with ANDREA Driscoll And in [address] Lindo documented in this encounter Ordered Prescriptions Prescription Sig Dispense Quantity Refills Last Filled Start Date End Date semaglutide (Ozempic) 1 mg/dose (2 mg/1.5 mL) pen injector injection Inject 1 mg under the skin every 7 days Sample Lot [id number] Exp 03/03/2023 x 2 pens 2 pen 11/07/2020 09/02/2021 gabapentin (NEURONTIN) 600 mg tabletIndications: Diabetic neuropathy associated with type 2 diabetes mellitus (CMS/HCC) (HCC) Take 1 tablet (600 mg total) by mouth 3 (three) times a day 270 tablet 3 10/29/2020 05/20/2021 FreeStyle Elijah 2 Sensor kitIndications:Typ e 2 diabetes mellitus with hyperglycemia, with long-term current use of insulin (HCC) One sensor every 14 days 6 kit 3 10/29/2020 05/20/2021 semaglutide (OZEMPIC) 1 mg/dose (4 mg/3 mL) pen injector injectionIndicatio ns:Type 2 diabetes mellitus with hyperglycemia, with long-term current use of insulin (HCC) Inject 1 mg under the skin every 7 days 9 mL 1 10/29/2020 11/07/2020 documented in this encounter Progress Notes * Nacho Rodriguez MD - 10/29/2020 2:30 PM CDT Images from the original note were not included. [facility] END[facility] Consult Note Subjective/Objective Patient ID: Camilo Curry is a 50 y.o. male Chief Complaint Diabetes Type 2 HPI - pt. Seen today in consultation for uncontrolled DM type 2 management , requested by PCP - Braydon LYON - Pt. Gives a h/o type 2 DM , diagnosed 2011 - Chronic, uncontrolled, worsening - last A1c - 10/29/2020 - 9.8 % - Complicated by : neuropathy , - co morbidities - BLAND , Liver cirrhosis , HTN, HLD, Morbid obesity - pt. Currently on : Humulin R pen 200 units 3-4 x Daily - Pt. Checks BS at home - checking 4 x daily - last eye exam - 2019 - h/o HTN - yes Pt Not EMELI I , ARB - last MA - due - last Lipid panel - 08/28/2017, due Past Medical History: Diagnosis Date ??? Diabetes [...] Alcohol use: No ??? Drug use: No HOME MEDICATIONS : acetaminophen-codeine (TYLENOL with CODEINE #3) 300-30 mg per tablet ALPRAZolam (XANAX) 0.5 mg tablet BD ULTRA-FINE SHORT PEN NEEDLE 31 gauge x 5/16 needle yhliexo-hlaiJXYkmmk-hpdveehasuruanv (Virtussin DAC) 2-20-6 mg/mL syrup HUMULIN R U-500, CONC, KWIKPEN 500 unit/mL (3 mL) CONCENTRATED injection hydroCHLOROthiazide (HYDRODIURIL) 25 mg tablet lactulose solution 10 gram/15mL omeprazole (PriLOSEC) 20 mg capsule ondansetron (ZOFRAN) 4 mg tablet ONETOUCH ULTRA BLUE TEST STRIP strip polyethylene glycol (GoLYTELY) 236-22.74-6.74 -5.86 gram solution PROVENTIL HFA 90 mcg/actuation inhaler rifAXIMin (XIFAXAN) 550 mg tablet traMADol (ULTRAM) 50 mg tablet FreeStyle Elijah 2 Sensor kit gabapentin (NEURONTIN) 600 mg tablet semaglutide (OZEMPIC) 1 mg/dose (4 mg/3 mL) pen injector injection Allergies Allergen Reactions ??? Ciprofloxacin Other (See comments), Shortness of breath and Urticaria Reaction: URTICARIA;, ??? Penicillins Anaphylaxis, Other (See comments), Hives and Shortness of breath Reaction: ??? Dye Unknown and Swelling ??? Erythromycin Hives and Other (See comments) Reaction: Reaction: HIVES, ??? Esomeprazole Hives and Other (See comments) Reaction: Reaction: [place], Dr. Vigil okay with giving protonix ??? Iodine Swelling ??? Iv Contrast Dye [Iodinated Contrast Media] Other (See comments), Edema and Swelling Reaction: Reaction: SWELLING, unk ??? Nexium [Esomeprazole Magnesium] Hives ??? Penicillin Hives Reaction: HIVES, ??? Sulfa (Sulfonamide Antibiotics) Hives and Other (See comments) Reaction: Reaction: HIVES, ??? Nisoldipine Unknown ??? Prochlorperazine Unknown ??? Azactam [Aztreonam] Other (See comments) and Unknown Reaction: UNKNOWN, unk ??? Duloxetine Other (See comments) and Nausea only hives ??? Octreotide Other (See comments) unk Review of Systems Constitutional: Negative for appetite change, chills, fatigue, fever and unexpected weight change. HENT: Negative for dental problem, ear pain, hearing loss, sore throat, trouble swallowing and voice change. Eyes: Negative for pain and visual disturbance. Respiratory: Negative for cough, shortness of breath and wheezing. Cardiovascular: Negative for chest pain, palpitations and leg swelling. Gastrointestinal: Negative for abdominal pain, constipation, diarrhea, nausea and vomiting. Endocrine: Negative for cold intolerance, heat intolerance, polydipsia and polyuria. Genitourinary: Negative for difficulty urinating, dysuria and urgency. Musculoskeletal: Negative for back pain, gait problem, joint swelling, myalgias, neck pain and neckstiffness. Skin: Negative for rash and wound. Allergic/Immunologic: Negative for environmental allergies and food allergies. Neurological: Negative for dizziness, tremors, seizures, speech difficulty, weakness, light-headedness, numbness and headaches. Tingling and pain in feet + Hematological: Negative for adenopathy. Does not bruise/bleed easily. Psychiatric/Behavioral: Negative for behavioral problems, confusion, dysphoric mood and sleep disturbance. The patient is not nervous/anxious. Vitals: 10/29/20 1439 BP: 126/70 BP Location: Left arm Patient Position: Sitting Pulse: 108 Resp: 16 Weight: 119.4 kg (263 lb 3.2 oz) Height: 172.7 cm (5' 8 ) Physical Exam Constitutional: Appearance: He is obese. HENT: Head: Normocephalic and atraumatic. Eyes: Conjunctiva/sclera: Conjunctivae normal. Neck: Thyroid: No thyromegaly. Cardiovascular: Rate and Rhythm: Normal rate and regular rhythm. Pulses: Dorsalis pedis pulses are 2+ on the right side and 2+ on the left side. Posterior tibial pulses are 2+ on the right side and 2+ on the left side. Heart sounds: Normal heart sounds. Pulmonary: Effort: Pulmonary effort is normal. Breath sounds: Normal breath sounds. Abdominal: General: Bowel sounds are normal. Palpations: Abdomen is soft. There is no mass. Tenderness: There is no abdominal tenderness. Musculoskeletal: General: No tenderness. Normal range of motion. Cervical back: Neck supple. Right foot: No deformity. Left foot: No deformity. Feet: Right Foot: Monofilament exam: normal. Protective Sensation: 10 sites tested. 10 sites sensed. Skin Integrity: Positive for dry skin. Negative for ulcer. Left Foot: Monofilament exam: normal. Protective Sensation: 10 sites tested. 10 sites sensed. Skin Integrity: Positive for dry skin. Negative for ulcer. Skin: General: Skin is warm and dry. Neurological: Mental Status: He is alert and oriented to person, place, and time. Deep Tendon Reflexes: Reflexes are normal and symmetric. Psychiatric: Thought Content: Thought content normal. Judgment: Judgment normal. Labs: Chemistry Component Value Date/Time SODIUM 138 08/30/2020 1027 POTASSIUM 4.1 08/30/2020 1027 CHLORIDE 99 08/30/2020 1027 CO2 26 08/30/2020 1027 BUNSER 15 08/30/2020 1027 CREATININE 0.66 (L) 08/30/2020 1027 GLUCOSE 377 (H) 08/30/2020 1027 Component Value Date/Time CALCIUM 9.0 08/30/2020 1027 ALKPHOS 71 08/30/2020 1027 AST 68 (H) 08/30/2020 1027 ALT 67 (H) 08/30/2020 1027 BILITOT 1.1 08/30/2020 1027 Lab Results Component Value Date HGBA1C 9.8 10/29/2020 Lab Results Component Value Date TSH 1.59 11/03/2015 No results found for: MICROALBUR, [id number] Lab Results Component Value Date CHOL 115 08/28/2017 CHOL 135 11/07/2015 Lab Results Component Value Date HDL 34 (L) 08/28/2017 HDL 32 (L) 11/07/2015 Lab Results Component Value Date LDLCALC 59 08/28/2017 Lab Results Component Value Date TRIG 110 08/28/2017 TRIG 126 11/07/2015 No results found for: CHOLHDL Assessment/Plan Diagnoses and all orders for this visit: Type 2 diabetes mellitus with hyperglycemia, with long-term current use of insulin ([facility]) (Primary) Assessment & Plan: Chronic, uncontrolled, worsening HbA1c - 9.8 % continue current insulin doses - start ozempic 0.25 mg SQ weekly for 2 weeks than increase to 0.5 mg SQ weekly, once done with samples increase to 1 mg SQ weekly - start checking blood sugars Using Freestyle elijah 2 sensors - work on portion control diet, exercise every day - Get eye exam soon - do labs - fasting - follow up in 6 weeks with FREIGHT CAR REPAIRER Chelsea Driscoll ( to discuss about insulin pumps ) And in [address] Lindo Orders: - POCT glucose - POCT hemoglobin A1c - semaglutide (OZEMPIC) 1 mg/dose (4 mg/3 mL) pen injector injection; Inject 1 mg under the skin every 7 days - FreeStyle Elijah 2 Sensor kit; One sensor every 14 days - Comprehensive metabolic panel; Future - Albumin Creatinine Ratio, Urine; Future - TSH reflex to free T4; Future - Lipid panel; Future Diabetic neuropathy associated with type 2 diabetes mellitus ([facility]) Assessment & Plan: Chronic, worsening Start, gabapentin therapy Work on better diabetic control Orders: - gabapentin (NEURONTIN) 600 mg tablet; Take 1 tablet (600 mg total) by mouth 3 (three) times a day Vitamin D deficiency Assessment & Plan: Check labs and based on that for the plans Orders: - Vitamin D 25 hydroxy; Future Morbid obesity with body mass index (BMI) of 40.0 to 44.9 in adult ([facility]) Assessment & Plan: Counseled on diet and exercise Nacho Lindo MD documented in this encounter Miscellaneous Notes * Assessment & Plan Note - Nacho Rodriguez MD - 10/29/2020 4:23 PM CDTAssociated Problem(s): Diabetes mellitus, type 2 ([facility]) Chronic, uncontrolled, worsening HbA1c - 9.8 % continue current insulin doses - start ozempic 0.25 mg SQ weekly for 2 weeks than increase to 0.5 mg SQ weekly, once done with samples increase to 1 mg SQ weekly - start checking blood sugars Using Freestyle elijah 2 sensors - work on portion control diet, exercise every day - Get eye exam soon - do labs - fasting - follow up in 6 weeks with FREIGHT [employer] REPAIRER Chelsea Driscoll ( to discuss about insulin pumps ) And in [address] Lindo * Assessment & Plan Note - Nacho Rodriguez MD - 10/29/2020 4:23 PM CDTAssociated Problem(s): Diabetic neuropathy associated with type 2 diabetes mellitus ([facility]) ([facility]) Chronic, worsening Start, gabapentin therapy Work on better diabetic control * Assessment & Plan Note - Nacho Rodriguez MD - 10/29/2020 4:23 PM CDTAssociated Problem(s): Morbid obesity with body mass index (BMI) of 40.0 to 44.9 in adult ([facility]) Counseled on diet and exercise * Assessment & Plan Note - Nacho Rodriguez MD - 10/29/2020 4:22 PM CDTAssociated Problem(s): Vitamin D deficiency Check labs and based on that for the plans * Addendum Note - Jose Luis Goodrich MA - 10/29/2020 2:30 PM CDTAddended by: JOSE LUIS GOODRICH on: 11/07/2020 02:22 PM Modules accepted: Orders documented in this encounter Plan of Treatment Scheduled Orders Name Type Priority Associated Diagnoses Orde r Schedule Comprehensive metabolic panel Lab Routine Type 2 diabetes mellitus with hyperglycemia, with long-term current use of insulin ([facility]) Expected: 10/29/2020, Expires: 10/29/2021 Albumin Creatinine Ratio, Urine Lab Routine Type 2 diabetes mellitus with hyperglycemia, with long-term current use of insulin ([facility]) Expected: 10/29/2020, Expires: 10/29/2021 Vitamin D 25 hydroxy Lab Routine Vitamin D deficiency Expected: 10/29/2020, Expires: 10/29/2021 TSH reflex to free T4 Lab Routine Type 2 diabetes mellitus with hyperglycemia, with long-term current use of insulin ([facility]) Expected: 10/29/2020, Expires: 10/29/2021 Lipid panel Lab Routine Type 2 diabetes mellitus with hyperglycemia, with long-term current use of insulin ([facility]) Expected: 10/29/2020, Expires: 10/29/2021 documented as of this encounter Procedures Procedure Name Priority Date/Time Associated Diagnosis Comments POCT HEMOGLOBIN A1C Routine 10/29/2020 2 :47 PM CDT Type 2 diabetes mellitus with hyperglycemia, with long-term current use of insulin ([facility]) POCT GLUCOSE Routine 10/29/2020 2:47 PM CDT Type 2 diabetes mellitus with hyperglycemia, with long-term current use of insulin ([facility]) documented in this encounter Results * POCT hemoglobin A1c (10/29/2020 2:47 PM CDT) Hemoglobin A1C, POC 9.8 Blood specimen (specimen) 10/29/2020 2:47 PM CDT Nacho Lindo MD POINT OF CARE TEST ORDERABLES Final Result * POCT glucose (10/29/2020 2:47 PM CDT) Glucose Blood, POC 492 mg/dL Blood specimen (specimen) 10/29/2020 2:47 PM CDT Nacho Lindo MD POINT OF CARE TEST ORDERABLES Final Result documented in this encounter Visit Diagnoses Diagnosis Type 2 diabetes mellitus with hyperglycemia, with long-term current use of insulin (HCC)- Primary Diabetic neuropathy associated with type 2 diabetes mellitus ([facility]/HCC) (HCC) Vitamin D deficiency Morbid obesity with body mass index (BMI) of 40.0 to 44.9 in adult ([facility]) documented in this encounter Care Teams Ore Storage Drier Relationship Specialty Start Date End Date Braydon Pavon PA [address] [place] [address] PCP - General Family Practice 05/09/20 05/19/21 Nikolay Lancaster MD [address] [address] 05/09/20 05/19/21 documented as of this encounter
--- OUTSIDE RECORDS SUMMARY | 2024-04-19 23:08 | XMS_ITS | Encounter Summary ---
Author Organization [facility] Address [address] [place] [address] Care Team Providers Care National Accounts Sales Name Role Phone Braydon Pavon Primary Care Provider [phone] Nikolay Lancaster MD Unavailable [phone] Simon Lundberg MD Primary Care Provider [phone] Nacho Rodriguez MD Unavailable [phone] Elian Gross MD Unavailable Braydon Pavon Primary Care Provider [phone] Encounter Details Date Type Department Care Team (Late st Contact Info) Description 10/05/2020 Telephone [facility] [address] [place], [place] [id number] Trice Aldana, RT Social History Tobacco Use [...] file 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 Gender Identity Male 10/29/2020 12:37 PM CDT Sexual Orientation Straight 10/29/2020 12 :37 PM CDT documented as of this encounter Plan of Treatment Not on file documented as of this encounter Visit Diagnoses Not on filedocumented in this encounter Care Teams National Accounts Sales Relationship Specialty Start Date End Date Braydon Pavon PA [address] [place] [address] PCP - General Family Practice 05/09/20 05/19/21 Simon Lundberg MD [address] [place] [address] PCP - General Family Medicine 05/20/21 08/22/21 Braydon Pavon PA [address] [place] [address] PCP - General 08/23/21 Nikolay Lancaster MD [address] [place] [address] 05/09/20 05/19/21 [place] [id number] [address] [facility] [address], [place] [address] Consulting Physician Endocrinology 05/20/21 [place] [address] [address] [facility] [address], [place] [address] Consulting Physician Internal Medicine 05/20/21 documented as of this encounter
--- OUTSIDE RECORDS SUMMARY | 2024-04-19 23:08 | XMS_ITS | Encounter Summary ---
Author Organization [facility] Address [address] [place] [address] Phone Care Team Providers Care Planning Consultant Name Role Phone Braydon Pavon Primary Care Provider [phone] Nikolay Lancaster MD Unavailable [phone] Encounter Details Date Type Department Care Team (Late st Contact Info) Description 10/18/2020 Orders Only [facility] Gastroenterology [address] [facility] 8th [place] [address] [place] [address] Ellen Ventura LPN Social History Tobacco Use Types Packs/Day [...] on file 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 Gender Identity Male 10/29/2020 12:37 PM CDT Sexual Orientation Straight 10/29/2020 12 :37 PM CDT documented as of this encounter Ordered Prescriptions Prescription Sig Dispense Quantity Refills Last Filled Start Date End Date polyethylene glycol (GoLYTELY) 236-22.74-6.74 -5.86 gram solutionIndications :bowel preparation Take 4,000 mL by mouth once for 1 dose 4000 mL 11/01/2020 11/01/2020 documented in this encounter Plan of Treatment Not on file documented as of this encounter Visit Diagnoses Not on filedocumented in this encounter Discontinued Medications Medication Sig Discontinue Reason Start Date End Da te polyethylene glycol (GoLYTELY) 236-22.74-6.74 -5.86 gram solutionIndications:bowel preparation Take 4,000 mL by mouth once for 1 dose Reorder 11/01/2020 10/18/2020 documented as of this encounter Care Teams Planning Consultant Relationship Specialty Start Date End Date Braydon Pavon PA [address] [place] [address] PCP - General Family Practice 05/09/20 05/19/21 Nikolay Lancaster MD [address] [place] [address] 05/09/20 05/19/21 documented as of this encounter
--- OUTSIDE RECORDS SUMMARY | 2024-04-19 23:08 | XMS_ITS | Encounter Summary ---
Author Organization [facility] Address [address] [place] [address] Care Team Providers Care Tank Truck Operator Name Role Phone Braydon Pavon Primary Care Provider [phone] Nikolay Lancaster MD Unavailable [phone] Encounter Details Date Type Department Care Team (Late st Contact Info) Description 12/17/2020 8:33 AM CDT - 12/17/2020 11:54 AM CDT Hospital Encounter [facility] Endoscopy [address] [place] [address] Elian Gross MD [address] [facility] [address] [place] [address] Hepatic cirrhosis, unspecified hepatic cirrhosis type, unspecified whether ascites present (CMS/HCC) Discharge Disposition: Discharge to home or self [...] on file 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 Gender Identity Male 10/29/2020 12:37 PM CDT Sexual Orientation Straight 10/29/2020 12 :37 PM CDT documented as of this encounter Last Filed Vital Signs Vital Sign Reading Time Taken Comments Blood Pressure 161/89 12/17/2020 11:20 AM CDT Pulse 99 12/17/2020 11:20 AM CDT Temperature 36.1 ??C (97 ??F) 12/17/2020 10:43 AM CDT Respiratory Rate 17 12/17/2020 11:20 AM CDT Oxygen Saturation 94% 12/17/2020 11:20 AM CDT Inhaled Oxygen Concentration - - Weight 117.9 kg (260 lb) 12/17/2020 9:07 AM CDT Height 172.7 cm (5' 8 ) 12/17/2020 9:07 AM CDT Body Mass Index 39.53 12/17/2020 9:07 AM CDT documented in this encounter Discharge Diagnoses Diagnosis Iron deficiency anemia, unspecified - IRON DEFICIENCY ANEMIA, UNSPECIFIED Benign neoplasm of descending colon - BENIGN NEOPLASM OF DESCENDING COLON Other diseases of stomach and duodenum - OTHER DISEASES OF STOMACH AND DUODENUM Portal hypertension (CMS/HCC) (HCC) - PORTAL HYPERTENSION Portal hypertension Secondary esophageal varices without bleeding (CMS/HCC) (HCC) - SECONDARY ESOPHAGEAL VARICES WITHOUT BLEEDING Type 2 diabetes mellitus without complications (CMS/HCC) (HCC) - TYPE 2 DIABETES MELLITUS WITHOUT COMPLICATIONS Nonalcoholic steatohepatitis (BLAND) - NONALCOHOLIC STEATOHEPATITIS (BLAND) Unspecified cirrhosis of liver (HCC) - UNSPECIFIED CIRRHOSIS OF LIVER Morbid (severe) obesity due to excess calories (HCC) - MORBID (SEVERE) OBESITY DUE TO EXCESS CALORIES Personal history of nicotine dependence - PERSONAL HISTORY OF NICOTINE DEPENDENCE Family history of malignant neoplasm of breast - FAMILY HISTORY OF MALIGNANT NEOPLASM OF BREAST Other skilled nursing (current) drug therapy - OTHER [facility] (CURRENT) DRUG THERAPY assistant terminal manager (current) use of insulin (HCC) - MANAGED CARE SPECIALIST (CURRENT) USE OF INSULIN documented in this encounter Discharge Instructions * Attachments The following attachments cannot be sent through Care Everywhere. * Procedural Sedation (AfterCare(R) Instructions(ER/ED)) ([place] Korean) documented in this encounter Medications at Time [...] the skin every 7 days Sample Lot [id number] Exp 03/03/2023 x 2 pens 2 pen [...] hours as needed for pain ProviderTyler MD ALPRAZolam (XANAX) 0.5 mg tablet TAKE 1 TABLET TWICE DAILY NEEDED. 09/10/15 Tyler Page MD amitriptyline (ELAVIL) 25 mg tablet 11/16/20 ProviderTyler MD BD Ultra-Fine Short Pen Needle 31 gauge x 09/16 needle Inject 1 each under the skin daily To be used with the victoza 11/07/20 Nacho Rodriguez MD clindamycin (CLINDAGEL) 1 % gel 11/20/20 Tyler Page MD vxzdixa-xywsRCSmeuj-vcnzsgohwrtkzgo (Virtussin DAC) 2-20-6 mg/mL syrup every 6 [...] the skin every 7 days Sample Lot [id number] Exp 03/03/2023 x 2 pens 11/07/20 Nacho Rodriguez MD traMADol (ULTRAM) 50 mg tablet TAKE 1 TABLET 3 TIMES DAILY NEEDED. 12/08/16 ProviderTyler MD valACYclovir (VALTREX) 1 gram tablet 11/19/20 Provider, MD Tyler Review of Systems A pertinent, focused review [...] Male Attending MD: Elian Draper M.D. Room: [facility] ENDOSCOPY [facility] 02 Note Status: Finalized [...] the physician, the nurse, the anesthesiologist, the contact center engineer and the food safety technician in the pre-procedure area in the [...] scope was passed under direct vision. The [id number] was introduced through the anus and advanced to the hepatic flexure. The colonoscopy was performed without difficulty. The patient tolerated the procedure well. The quality of the bowel preparation was unsatisfactory. The quality of the bowel preparation was evaluated using the BBPS ([place] Bowel Preparation Scale) with scores of: Right [...] Male Attending MD: Elian Draper M.D. Room: [facility] 02 Note Status: Finalized [...] the physician, the nurse, the anesthesiologist, the contact center engineer and the food safety technician in the pre-procedure area in the [...] and oxygen saturations were monitored continuously. The [id number] was introduced through the mouth, and advanced [...] Bowel prep When you arrive, come to [facility] hospital entrance. There is a [address] with free hair stylist parking, or you may park in front [...] mask at all times My number is [phone] documented in this encounter Plan of Treatment [...] was last revised on 2014. POC Performer [id number] MOHINDER WARD POC Device Number [id number] MOHINDER LITTLECH Glucose comment 1 RN/MD Notified MOHINDER WARD Blood 12/17/2020 11:0 4 AM CDT 12/17/2020 11:04 AM CDT us Elian Draper MD LAB POCT ORD ERABLES - DEVICE Final Result [facility] [address] [facility]. Department [place] [address] * Surgical pathology (12/17/2020 10:34 AM CDT) Tissue (Polyp(s), colon/colorectal, esophageal, gastric) 12/17/2020 10:34 AM CDT Narrative PATHOLOGY [facility] - 12/18/2020 2:08 PM CDT EPIC results best viewed via link to PDF [facility] [place] [address] Note to Patients: This report may contain [...] Gender: ??M : ??1970 (Age: 50) Address: ??[address] [place] [address] Hospital #: ??[id number] Taken:12/17/2020 Received:12/17/2020 Reported: 12/18/2020 Patient Type: WC SDS Client ?[facility] Service: Gastro Location: [facility] Physician(s): ??Amber Browning PA Diagnosis: A. ??Descending [...] interpretation for this case was performed at [facility], Department of Surgical Pathology, ??[facility], [place] [id number], ??[place], [place] ??[address] ?? CLIA [id number] History: The patient is a 50-year-old man [...] Surgical Pathology and Flow Cytometry Departments at [facility] as part of an ongoing quality specialist program and in compliance with federally mandated [...] Surgical Pathology and Flow Cytometry Departments of [facility]. ??It has not been cleared or approved by the U. S. Food and Drug Administration. IMAGES AND SCANNED DOCUMENTS, IF INCLUDED, ONLY VIEWABLE IN PDF VERSION OF REPORT us Elian Draper MD LAB PATHOLOG Y ORDERABLES Final Result Performing Organization Address [facility] Co de Phone Number PATHOLOGY [facility] [phone] * (ABNORMAL) POCT glucose (12/17/2020 10:30 AM CDT) Glucose, POC 302(H) 70 - 199 mg/dL MOHINDER WARD Comment: Interpretive Data Glucose is assumed to be non-fasting. Fasting Glucose reference ranges are: 0 - 150 years: ??70 mg/dL - 99 mg/dL Current interpretive data was last revised on 2014. POC Performer [id number] MOHINDER WARD POC Device Number [id number] MOHINDER WARD Glucose comment 1 RN/MD Notified MOHINDER WARD Blood 12/17/2020 10:3 0 AM CDT 12/17/2020 10:30 AM CDT us Elian Draper MD LAB POCT ORD ERABLES - DEVICE Final Result Performing Organization Address City/[facility]/ZIP Co de Phone Number MOHINDER MICHELCH [address] [facility]. Department [place] [address] * COLONOSCOPY (12/17/2020 10:24 AM CDT) Anatomical Region Laterality Modality Other Narrative Procedure Note Elian Gross MD - 12/17/2020 10:24 AM CDT ENDOSCOPY LAB Patient Name: Camilo Curry Procedure Date: 12/17/2020 10:24 AM Date of : 1970 Admit Type: Outpatient Age: 50 Gender: Male Attending MD: Elian Vivar M.D. Room: [facility] 02 Note Status: Finalized [...] the physician, the nurse, the anesthesiologist, the contact center engineer and thetechnician in the pre-procedure area in [...] The scope was passed under direct vision.The [id number] was introduced through the anusand advanced to the hepatic flexure. The colonoscopywas performed without difficulty. The patient tolerated the procedure well. The quality of the bowel preparation was unsatisfactory. The quality of the bowel preparation was evaluated using the BBPS([place] Bowel Preparation Scale) with scores of: RightColon [...] 10:24 AM us Elian Draper MD ENDOSCOPY TN OCEDURES Final Result * EGD (12/17/2020 10:01 AM CDT) Anatomical Region Laterality Modality Other Narrative Procedure Note Elian Gross MD - 12/17/2020 10:01 AM CDT ENDOSCOPY LAB Patient Name: Camilo Curry Procedure Date: 12/17/2020 10:01 AM Date of : 1970 Admit Type: Outpatient Age: 50 Gender: Male Attending MD: Elian Vivar M.D. Room: [facility] 02 Note Status: Finalized [...] the physician, the nurse, the anesthesiologist, the contact center engineer and thetechnician in the pre-procedure area in [...] and oxygen saturations were monitored continuously. The [id number] was introduced through the mouth, and advanced [...] 10:01 AM us Elian Draper MD ENDOSCOPY TN OCEDURES Final Result * (ABNORMAL) POCT glucose (12/17/2020 9:40 AM CDT) Glucose, POC 278(H) 70 - 199 mg/dL MOHINDER WARD Comment: Interpretive Data Glucose is assumed to be non-fasting. Fasting Glucose reference ranges are: 0 - 150 years: ??70 mg/dL - 99 mg/dL Current interpretive data was last revised on 2014. POC Performer [id number] MOHINDER [facility] POC Device Number [id number] MOHINDER [facility] Blood 12/17/2020 9:40 AM CDT 12/17/2020 9:40 AM CDT us Elian Draper MD LAB POCT ORD ERABLES - DEVICE Final Result [facility]ER [facility] [address] [facility] Department [place] [address] documented in this encounter Visit Diagnoses Diagnosis [...] 12/17/2020 documented in this encounter Care Teams Tank Truck Operator Relationship Specialty Start Date End Date Braydon Pavon PA [address] [place] [address] PCP - General Family Practice 05/09/20 05/19/21 Nikolay Lancaster MD [address] [address] 05/09/20 05/19/21 documented as of this encounter
--- OUTSIDE RECORDS SUMMARY | 2024-04-19 23:09 | XMS_ITS | Encounter Summary ---
Author Organization [facility] Facility Care Team Providers Care President & Ceo Name Role Phone Unavailable Primary Care Provider Unavailabl e Encounter Details Date Type Department Care Team (Late st Contact Info) Description 06/03/2016 8:00 AM PATIENT SAFETY MANAGER - 06/03/2016 11:59 PM [facility] Hospital Encounter [facility] Gregg Haines MD [address] [facility] [address] [place] [id number] Social History Tobacco Use Types Packs/Day Years Used Date Smoking Tobacco: Never Assessed Sex and Gender Information Value Date Recorded Sex Assigned at Not on file 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 09/10/2015 2 hepatitis A and B ([place], PF,) [address] unit -20 mcg/mL suspensionIndica tions:Hepatitis B Prevention,Viral Hepatitis A Prevention Inject into the muscle as instructed. 09/20/2015 1 HYDROcodone-acet aminophen (NORCO) 10-325 mg per tabletIndication s:Pain as directed for pain prn 09/10/2015 1 omeprazole (PriLOSEC) 20 mg capsule 2 times daily. 09/10/2015 4 ondansetron (ZOFRAN) 4 mg tablet take 1 tab every 8 hours prn nausea and vomitting 09/10/2015 4 rifAXIMin (XIFAXAN) 550 mg tablet 2 times daily. 01/21/2016 1 documented as of this encounter Plan of Treatment Not on file documented as of this encounter Visit Diagnoses Not on filedocumented in this encounter
--- OUTSIDE RECORDS SUMMARY | 2024-04-19 23:09 | XMS_ITS | Encounter Summary ---
Author Organization [facility] Healthcare Address [address] [place] [address] Care Team Providers Care Frog Or Oyster Farmworker Name Role Phone No, Physician Primary Care Provider [phone] Encounter Details Date Type Department Care Team (Latest Contact Info) Description 10/21/2016 1:18 PM CDT - 10/21/2016 11:59 PM CDT Hospital Encounter [facility] INTERIM [phone] Samaria Ellis MD [address] [facility] [address] [place] [address] Discharge Disposition: Discharge to home or self care Social History Tobacco Use Types Packs/Day Years Used Date Smoking Tobacco: Never Assessed Sex and Gender Information Value Date Recorded Sex Assigned at Not on file 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 Gender Identity Male 10/29/2020 12:37 PM CDT [...] 01/21/2016 1 documented as of this encounter Discharge Disposition Disposition Code Departure Means Destination Discharge to home or self care documented in this encounter Plan of Treatment Not on file documented as of this encounter Procedures Procedure Name Priority Date/Time Associated Diagnosis Comments VLWU DUPLEX SCAN OF AORTA; INFERIOR VENA CAVA, ILIAC, COMPLETE BILATERAL Routine 10/21/2016 7:03 PM CDT documented in this encounter Results * US Duplex scan of Aorta; Inferior vena cava, iliac, complete bilateral (10/21/2016 7:03 PM CDT) Anatomical Region Laterality Modality Vascular Ultrasound 10/21/2016 7:03 PM CDT Narrative 10/21/2016 7:03 PM CDT KIERAN RAMIREZ M.D. FINAL REPORT ACC# ??Date Time ??Exam [id number] Oct 21, 2016 14:03:00 [id number] Abd Orgn Duplex EXAMINATION: ?LIVER DOPPLER - TIPS HISTORY: ??Cirrhosis with TIPS and possible shunt malfunction noted on recent outside hospital study. FINDINGS: ??Color Doppler and spectral analysis were used to evaluate the stent and hepatic vasculature. ??Main portal vein velocity measures 35 cm/second. ??Flow is retrograde in the right portal vein, the left portal vein is not seen. The examination is limited with poor visualization of the distal TIPS a stent. The maximal velocity visualized in the proximal stent measures 144 cm/sec and in the mid measures 139 cm/sec. Previously the maximal velocity is located within the proximal stent and measured 159 cm/sec. No draining hepatic vein is visualized. ??There is no evidence of stenosis or collaterals. There is no ascites. IMPRESSION: ? Limited evaluation without evidence of TIPS stenosis. The maximal velocity of the visualized TIPS and portal vein are within normal range, however, the distal most aspect of the TIPS is not visualized. Requested By: SAMARIA ELLIS M.D. Dictated By: ?? KIERAN RAMIREZ M.D. ??on Oct 21 2016 ??2:16P This document has been electronically signed by: KIERAN RAMIREZ M.D. on Oct 21 2016 ??2:16P [id number] RAMIREZ M.D. FINAL REPORT Attending: ??JENS, ??SAMARIA Requesting: ??JENS, ??SAMARIA Requesting Fax: ?? Attending Fax: ?? Attending ID: ??[id number] Requesting ID: ??[id number] Report To 1 ID: ??[id number] ? Report To 1 Name: ??, ?? Report To 1 FAX: ?? NextGen Order #: ?? Procedure Note Miscellaneous, Not In File - 02/18/2017 KIERAN RAMIREZ M.D. FINAL REPORT ACC# Date Time Exam [id number] Oct 21, 2016 14:03:00 [id number] Abd Orgn Duplex EXAMINATION: LIVER DOPPLER - TIPS HISTORY: Cirrhosis with TIPS and possible shunt malfunction noted on recent outside hospital study. FINDINGS: Color Doppler and spectral analysis were used to evaluate the stent and hepatic vasculature. Main portal vein velocity measures 35 cm/second. Flow is retrograde in the right portal vein, the left portal vein is not seen. The examination is limited with poor visualization of the distal TIPS a stent. The maximal velocity visualized in the proximal stent measures 144 cm/sec and in the mid measures 139 cm/sec. Previously the maximal velocity is located within the proximal stent and measured 159 cm/sec. No draining hepatic vein is visualized. There is no evidence of stenosis or collaterals. There is no ascites. IMPRESSION: Limited evaluation without evidence of TIPS stenosis. The maximal velocity of the visualized TIPS and portal vein are within normal range, however, the distal most aspect of the TIPS is not visualized. Requested By: SAMARIA ELLIS M.D. Dictated By: KIERAN RAMIREZ M.D. on Oct 21 2016 2:16P This document has been electronically signed by: KIERAN RAMIREZ M.D. on Oct 21 2016 2:16P [id number] RAMIREZ M.D. FINAL REPORT Attending: SAMARIA ELLIS Requesting: SAMARIA ELLIS Requesting Fax: Attending Fax: Attending ID: [id number] Requesting ID: [id number] Report To 1 ID: [id number] Report To 1 Name: , Report To 1 FAX: NextGen Order #: Samaria Ellis MD CV VASCULAR PROCEDURES Edited Result - Final documented in this encounter Visit Diagnoses Not on filedocumented in this encounter Care Teams Frog Or Oyster Farmworker Relationship Specialty Start Date End Date No, Physician PCP - General 09/16/16 11/05/16 documented as of this encounter
--- OUTSIDE RECORDS SUMMARY | 2024-04-19 23:09 | XMS_ITS | Encounter Summary ---
Author Organization [facility] Address [address] [place] [address] Phone Care Team Providers Care Grinding Wheel Operator Name Role Phone Kris Soto MD Primary Care Provide r Encounter Details Date Type Department Care Team (Late st Contact Info) Description 10/12/2017 Documentation [facility] G[facility]enterology [facility] [address]th [place] [address] [place] [address] Christiana Carrillo RN Social History Tobacco Use Types Packs/Day Years Used Date Smoking Tobacco: Former Smokeless Tobacco: Never Alcohol Use Standard Drinks/Week Comments No 0 (1 standard drink = 0.6 oz pur e alcohol) Sex and Gender Information Value Date Recorded Sex Assigned at Not on file 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 We are requesting: EMERGENCY ROOM INFORMATION FROM MOST RECENT VISIT: MD SUMMARY, LABS, ABDOMINAL IMAGING, ANY DIAGNOSTIC TESTING Medical Records are needed by: HEIKE Please fax to [phone]. According to HIPAA regulation, a signed patient request for release of information is NOT required WHEN the request is for TREATMENT or BILLING of a patient. Any and all assistance in returning the requested information in a timely fashion would be appreciated and would assist in expediting patientcare. If the fast food restaurant manager of your medical records department has any questions, please contact Lynda Ballard at for clarification or the [email or web address] web site (HIPAA Protecting Privacy of Patient Health Information Act 08/16/04 Div of Procedural Enforcement Codes). documented in this encounter Plan of Treatment Not on file documented as of this encounter Visit Diagnoses Not on filedocumented in this encounter Care Teams Grinding Wheel Operator Relationship Specialty Start Date End Date Kris Soto MD [address] [place], [place] [id number] PCP - General 12/08/16 10/26/18 documented as of this encounter
--- OUTSIDE RECORDS SUMMARY | 2024-04-19 23:09 | XMS_ITS | Encounter Summary ---
Author Organization [facility] Address [address] [place] [address] Phone Care Team Providers Care Preschool Paraprofessional Name Role Phone Kris Soto MD Primary Care Provide r Encounter Details Date Type Department Care Team (Late st Contact Info) Description 10/10/2017 Telephone [facility] Gastroenterology [address] [place] [address] 8[address] [place] [address] [place] [address] Jose Miguel MD Social History Tobacco Use Types Packs/Day Years Used Date Smoking Tobacco: Former Sex and Gender Information Value Date Recorded Sex Assigned at Not on file 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 He was recently evaluated at an OSH for similar issues and was thought to be related to his gallbladder. He was then discharged and asked to follow up at [place]. He is now on his way to [place] due to RUQ abdominal pain. I suggested that he should be evaluated at [facility] and if labs or imaging are concerning he may need admission for further workup. documented in this encounter Plan of Treatment Not on file documented as of this encounter Visit Diagnoses Not on filedocumented in this encounter Care Teams Preschool Paraprofessional Relationship Specialty Start Date End Date Kris Soto MD [address] [place] [address] PCP - General 12/08/16 10/26/18 documented as of this encounter
--- OUTSIDE RECORDS SUMMARY | 2024-04-19 23:09 | XMS_ITS | Encounter Summary ---
Author Organization [facility] Healthcare Address [address] [place] [address] Care Team Providers Care Rework Machine Operator Name Role Phone Kris Soto MD Primary Care Provide r Encounter Details Date Type Department Care Team (Latest Contact Info) Description 07/06/2017 8:31 AM NET FISHER - 07/06/2017 11:59 PM [facility] Hospital Encounter [facility] OP INTERIM [phone] Samaria Ellis MD [address] [facility] [address] [place] [id number] Discharge Disposition: Discharge to home or self care Social History Tobacco Use Types Packs/Day Years Used Date Smoking Tobacco: Former Sex and Gender Information Value Date Recorded Sex Assigned at Not on file Legal Sex Male 2:52 PM NET FISHER Gender Identity Male 10/29/2020 12:37 PM CDT [...] INFERIOR VENA CAVA, ILIAC, COMPLETE BILATERAL Routine 07/06/2017 4:11 PM NET FISHER US ABDOMEN LIMITED Routine 07/06/2017 4: 11 PM NET FISHER documented in this encounter Results * US Abdomen Limited (07/06/2017 4:11 PM NET FISHER) Anatomical Region Laterality Modality Abdomen N/A Ultrasound 07/06/2017 4:11 PM NET FISHER Narrative 07/06/2017 5:28 PM NET FISHER TAMIKO WEEKS M.D. FINAL REPORT ACC# ??Date Time ??Exam [id number] Jul 06, 2017 10:11:00 [id number] Abd Orgn Duplex [id number] Jul 06, 2017 10:11:00 [id number] Sono Abd Lmtd EXAMINATION: ?? 1. LIMITED ABDOMINAL SONOGRAM 2. LIVER DOPPLER - TIPS HISTORY: ??46-year-old male with Le cirrhosis, history of encephalopathy and esophageal varices with bleeding. ??A stent graft was placed into the liver 11/22/2015. COMPARISON: ??Sonogram dated 10/02/2015, TIPS evaluation 10/21/2016. FINDINGS: ?? LIMITED ABDOMEN SONOGRAM: Liver: The liver is normal in size. ??The echotexture is normal. ??The echogenicity is moderately increased. There is no surface nodularity. No focal solid lesions are visualized although the liver could not be seen in its entirety due to body habitus. ?? TIPS DOPPLER: Color Doppler and spectral analysis were used to evaluate the stent graft and hepatic vasculature. ??Evaluation of the stent graft is very limited due to the patient's body habitus and the steatosis. ??The left portal vein could not be optimally visualized to evaluate for color Doppler flow. ??Flow is retrograde in the right portal vein. ??It was not possible to demonstrate color Doppler flow within portions of the stent graft. ??Main portal vein velocity measured approximately 40 cm/s. ??An appropriately angle corrected velocity could only be obtained in the mid stent where it measures 168 cm/s. ??The portosplenic confluence is patent with appropriate directional flow. ??Coronary collaterals could not be identified. ?? Ascites: There is no ascites. IMPRESSION: ??1. Moderate hepatic steatosis. 2. Incomplete limited evaluation of the stent graft. ??The distal stent graft could not be visualized. ??Color Doppler flow could not be seen within the entire stent. ??Only a single mid stent velocity could be obtained. ??Main portal vein velocity is normal and the single mid stent velocity is also normal. Electronically signed by: Tamiko Weeks M.D. Requested By: SAMARIA ELLIS M.D. Dictated By: ?? TAMIKO WEEKS M.D. ??on Jul ??2017 11:26A This document has been electronically signed by: TAMIKO WEEKS M.D. on Jul ??2017 11:26A [id number] WEEKS M.D. FINAL REPORT Attending: ??JENS, ??SAMARIA Requesting: ??JENS, ??SAMARIA Requesting Fax: ?? Attending Fax: ?? Attending ID: ??[id number] Requesting ID: ??[id number] Report To 1 ID: ??[id number] ? Report To 1 Name: ??, ?? Report To 1 FAX: ?? NextGen Order #: ?? Procedure Note Miscellaneous, Not In File - 07/06/2017 TAMIKO WEEKS M.D. FINAL REPORT ACC# Date Time Exam [id number] Jul 06, 2017 10:11:00 [id number] [facility] Orgn Duplex [id number] Jul 06, 2017 10:11:00 [id number] Sono Abd Lmtd EXAMINATION: 1. LIMITED ABDOMINAL SONOGRAM 2. LIVER DOPPLER - TIPS HISTORY: 46-year-old male with Le cirrhosis, history of encephalopathy and esophageal varices with bleeding. A stent graft was placed into the liver 11/22/2015. COMPARISON: Sonogram dated 10/02/2015, TIPS evaluation 10/21/2016. FINDINGS: LIMITED ABDOMEN SONOGRAM: Liver: The liver is normal in size. The echotexture is normal. The echogenicity is moderately increased. There is no surface nodularity. No focal solid lesions are visualized although the liver could not be seen in its entirety due to body habitus. TIPS DOPPLER: Color Doppler and spectral analysis were used to evaluate the stent graft and hepatic vasculature. Evaluation of the stent graft is very limited due to the patient's body habitus and the steatosis. The left portal vein could not be optimally visualized to evaluate for color Doppler flow. Flow is retrograde in the right portal vein. It was not possible to demonstrate color Doppler flow within portions of the stent graft. Main portal vein velocity measured approximately 40 cm/s. An appropriately angle corrected velocity could only be obtained in the mid stent where it measures 168 cm/s. The portosplenic confluence is patent with appropriate directional flow. Coronary collaterals could not be identified. Ascites: There is no ascites. IMPRESSION: 1. Moderate hepatic steatosis. 2. Incomplete limited evaluation of the stent graft. The distal stent graft could not be visualized. Color Doppler flow could not be seen within the entire stent. Only a single mid stent velocity could be obtained. Main portal vein velocity is normal and the single mid stent velocity is also normal. Electronically signed by: Tamiko Weeks M.D. Requested By: SAMARIA ELLIS M.D. Dictated By: TAMIKO WEEKS M.D. on Jul 06 2017 11:26A This document has been electronically signed by: TAMIKO WEEKS M.D. on Jul 06 2017 11:26A [id number] WEEKS M.D. FINAL REPORT Attending: SAMARIA ELLIS Requesting: SAMARIA ELLIS Requesting Fax: Attending Fax: Attending ID: [id number] Requesting ID: [id number] Report To 1 ID: [id number] Report To 1 Name: , Report To 1 FAX: NextGen Order #: us Samaria Ellis MD IMG US PROCEDURES Final Result * US Duplex Scan of Aorta; Inferior Vena Cava, Iliac, Complete (07/06/2017 4:11 PM NET FISHER) Anatomical Region Laterality Modality Vascular Ultrasound 07/06/2017 4:11 PM NET FISHER Narrative 07/06/2017 5:28 PM NET FISHER TAMIKO WEEKS M.D. FINAL REPORT ACC# ??Date Time ??Exam [id number] Jul 06, 2017 10:11:00 [id number] Abd Orgn Duplex [id number] Jul 06, 2017 10:11:00 [id number] Sono Abd Lmtd EXAMINATION: ?? 1. LIMITED ABDOMINAL SONOGRAM 2. LIVER DOPPLER - TIPS HISTORY: ??46-year-old male with Le cirrhosis, history of encephalopathy and esophageal varices with bleeding. ??A stent graft was placed into the liver 11/22/2015. COMPARISON: ??Sonogram dated 10/02/2015, TIPS evaluation 10/21/2016. FINDINGS: ?? LIMITED ABDOMEN SONOGRAM: Liver: The liver is normal in size. ??The echotexture is normal. ??The echogenicity is moderately increased. There is no surface nodularity. No focal solid lesions are visualized although the liver could not be seen in its entirety due to body habitus. ?? TIPS DOPPLER: Color Doppler and spectral analysis were used to evaluate the stent graft and hepatic vasculature. ??Evaluation of the stent graft is very limited due to the patient's body habitus and the steatosis. ??The left portal vein could not be optimally visualized to evaluate for color Doppler flow. ??Flow is retrograde in the right portal vein. ??It was not possible to demonstrate color Doppler flow within portions of the stent graft. ??Main portal vein velocity measured approximately 40 cm/s. ??An appropriately angle corrected velocity could only be obtained in the mid stent where it measures 168 cm/s. ??The portosplenic confluence is patent with appropriate directional flow. ??Coronary collaterals could not be identified. ?? Ascites: There is no ascites. IMPRESSION: ??1. Moderate hepatic steatosis. 2. Incomplete limited evaluation of the stent graft. ??The distal stent graft could not be visualized. ??Color Doppler flow could not be seen within the entire stent. ??Only a single mid stent velocity could be obtained. ??Main portal vein velocity is normal and the single mid stent velocity is also normal. Electronically signed by: Tamiko Weeks M.D. Requested By: SAMARIA ELLIS M.D. Dictated By: ?? TAMIKO WEEKS M.D. ??on Jul ??2017 11:26A This document has been electronically signed by: TAMIKO WEEKS M.D. on Jul ??2017 11:26A [id number] WEEKS M.D. FINAL REPORT Attending: ??JENS, ??SAMARIA Requesting: ??JENS, ??SAMARIA Requesting Fax: ?? Attending Fax: ?? Attending ID: ??[id number] Requesting ID: ??[id number] Report To 1 ID: ??[id number] ? Report To 1 Name: ??, ?? Report To 1 FAX: ?? NextGen Order #: ?? Procedure Note Miscellaneous, Not In File - 07/06/2017 TAMIKO WEEKS M.D. FINAL REPORT ACC# Date Time Exam [id number] Jul 06, 2017 10:11:00 [id number] Abd Orgn Duplex [id number] Jul 06, 2017 10:11:00 [id number] Sono Abd Lmtd EXAMINATION: 1. LIMITED ABDOMINAL SONOGRAM 2. LIVER DOPPLER - TIPS HISTORY: 46-year-old male with Le cirrhosis, history of encephalopathy and esophageal varices with bleeding. A stent graft was placed into the liver 11/22/2015. COMPARISON: Sonogram dated 10/02/2015, TIPS evaluation 10/21/2016. FINDINGS: LIMITED ABDOMEN SONOGRAM: Liver: The liver is normal in size. The echotexture is normal. The echogenicity is moderately increased. There is no surface nodularity. No focal solid lesions are visualized although the liver could not be seen in its entirety due to body habitus. TIPS DOPPLER: Color Doppler and spectral analysis were used to evaluate the stent graft and hepatic vasculature. Evaluation of the stent graft is very limited due to the patient's body habitus and the steatosis. The left portal vein could not be optimally visualized to evaluate for color Doppler flow. Flow is retrograde in the right portal vein. It was not possible to demonstrate color Doppler flow within portions of the stent graft. Main portal vein velocity measured approximately 40 cm/s. An appropriately angle corrected velocity could only be obtained in the mid stent where it measures 168 cm/s. The portosplenic confluence is patent with appropriate directional flow. Coronary collaterals could not be identified. Ascites: There is no ascites. IMPRESSION: 1. Moderate hepatic steatosis. 2. Incomplete limited evaluation of the stent graft. The distal stent graft could not be visualized. Color Doppler flow could not be seen within the entire stent. Only a single mid stent velocity could be obtained. Main portal vein velocity is normal and the single mid stent velocity is also normal. Electronically signed by: Tamiko Weeks M.D. Requested By: SMAARIA ELLIS M.D. Dictated By: TAMIKO WEEKS M.D. on Jul 06 2017 11:26A This document has been electronically signed by: TAMIKO WEEKS M.D. on Jul 06 2017 11:26A [id number] WEEKS M.D. FINAL REPORT Attending: SAMARIA ELLIS Requesting: SAMARIA ELLIS Requesting Fax: Attending Fax: Attending ID: [id number] Requesting ID: [id number] Report To 1 ID: [id number] Report To 1 Name: , Report To 1 FAX: NextGen Order #: Samaria Ellis MD CV VASCULAR PROCEDURES Final Result documented in this encounter Visit Diagnoses Not on filedocumented in this encounter Care Teams Rework Machine Operator Relationship Specialty Start Date End Date Kris Soto MD [address] [place] [address] PCP - General 12/08/16 10/26/18 documented as of this encounter
--- OUTSIDE RECORDS SUMMARY | 2024-04-19 23:09 | XMS_ITS | Encounter Summary ---
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 End Date Kris Soto MD [address] [place] [address] PCP - General 12/08/16 10/26/18 documented as of this encounter
--- OUTSIDE RECORDS SUMMARY | 2024-04-19 23:09 | XMS_ITS | Encounter Summary ---
Author Organization [facility] Healthcare Address [address] [place] [address] Care Team Providers Care Computer Equipment Installer Name Role Phone Kris Soto MD Primary Care Provide r Encounter Details Date Type Department Care Team (Latest Contact Info) Description 07/06/2017 11:59 AM REFRIGERATION INSULATOR - 07/06/2017 11:[address] [facility] Hospital Encounter [facility] [phone] Kathryn Ellis MD [address] [facility] [address] [place] [id number] Discharge Disposition: Discharge to home or self care Social History Tobacco Use Types Packs/Day Years Used Date Smoking Tobacco: Former Sex and Gender Information Value Date Recorded Sex Assigned at Not on file Legal Sex Male 2:52 PM REFRIGERATION INSULATOR Gender Identity Male 10/29/2020 12:37 PM CDT [...] Procedure Name Priority Date/Time Associated Diagnosis Comments DIFFERENTIAL AUTO Routine Gen Lab 07/06/2017 12: 20 PM REFRIGERATION INSULATOR CBC WITH AUTO DIFFERENTIAL Routine Gen Lab 07/06/2017 12:20 PM REFRIGERATION INSULATOR [id number], TUMOR MARKER Routine Gen Lab 07/06/2017 12:20 PM REFRIGERATION INSULATOR VITAMIN D 25 HYDROXY Routine Gen Lab 07/06/2017 12:20 PM REFRIGERATION INSULATOR PROTIME-INR Routine Gen Lab 07/06/2017 12:20 PM REFRIGERATION INSULATOR COMPREHENSIVE METABOLIC PANEL Routine Gen Lab 07/06/2017 12:20 PM REFRIGERATION INSULATOR DISCHARGE LABORATORY CUMULATIVE REPORT 07/06/2017 12:00 AM REFRIGERATION INSULATOR documented in this encounter Results * (ABNORMAL) Vitamin D 25 hydroxy (07/06/2017 12:20 PM REFRIGERATION INSULATOR) Vitamin D 25-OH 12(L) 30 - 80 ng/mL [facility] Blood specimen (specimen) 07/06/2017 12:20 PM REFRIGERATION INSULATOR 07/06/2017 1:20 PM REFRIGERATION INSULATOR Narrative [facility] - 07/06/2017 2:13 PM REFRIGERATION INSULATOR Kathryn Ellis MD LAB BLOOD ORDERABLES Fi nal Result Performing Organization Address City/[facility] Co de Phone Number [facility] [place] [address] * [id number], Tumor Marker (07/06/2017 12:20 PM REFRIGERATION INSULATOR) [facility] alpha Fetoprotein 3.8 0.0 - 8.3 ng/mL [facility] Blood specimen (specimen) 07/06/2017 12:20 PM REFRIGERATION INSULATOR 07/06/2017 1:20 PM REFRIGERATION INSULATOR Narrative [facility] - 07/06/2017 2:02 PM REFRIGERATION INSULATOR Kathryn Ellis MD LAB BLOOD ORDERABLES Fi nal Result Performing Organization Address [facility] Co de Phone Number [facility] [place] [address] * (ABNORMAL) Comprehensive metabolic panel (07/06/2017 12:20 PM REFRIGERATION INSULATOR) [facility] Sodium 141 135 - 145 mmol/L [facility] Potassium, pl 4.3 3.3 - 4.9 mmol/L [facility] CO2 28 22 - 32 mmol/L [facility] BUN 13 8 - 25 mg/dL [facility] Glucose 223(H) 70 - 199 mg/dL [facility] Comment: Interpretive Data Fasting glucose >/= [...] interpretive data was last revised 2017. Creatinine 0.64(L) 0.80 - 1.30 mg/dL [facility] Calcium 9.5 8.5 - 10.3 mg/dL [facility] Chloride 103 97 - 110 mmol/L [facility] Albumin 4.1 3.5 - 5.0 g/dL [facility] AST 108(H) 10 - 50 Units/L [facility] ALT 91(H) 7 - 55 Units/L [facility] Alk phos 74 40 - 130 Units/L [facility] Bilirubin, total 1.5(H) 0.1 - 1.2 mg/dL [facility] Protein, pl 7.5 6.5 - 8.5 g/dL [facility] Anion gap 10 2 - 15 mmol/L [facility] Blood specimen (specimen) 07/06/2017 12:20 PM REFRIGERATION INSULATOR 07/06/2017 1:20 PM REFRIGERATION INSULATOR Narrative [facility] - 07/06/2017 1:55 PM REFRIGERATION INSULATOR us Kathryn Ellis MD LAB BLOOD ORDERABLES nal Result [facility] Department [place] [address] * (ABNORMAL) Differential, auto (07/06/2017 12:20 PM REFRIGERATION INSULATOR) Pathologist [facility] Neutrophil pct 73.7 % [facility] Imm gran pct 0.6 % [facility] Lymphocyte pct 13.7 % [facility] Monocyte pct 8.7 % [facility] Eosinophil pct 2.3 % [facility] Basophil pct 1.0 % [facility] Neutrophil abs 3.83 1.70 - 6.50 K/cumm [facility] Imm gran abs 0.03 0.00 - 0.10 K/cumm [facility] Lymphocyte abs 0.71(L) 0.80 - 3.30 K/cumm [facility] Monocyte abs 0.45 0.20 - 0.80 K/cumm [facility] Eosinophil abs 0.12 0.00 - 0.50 K/cumm [facility] Basophil abs 0.05 0.00 - 0.10 K/cumm [facility] Blood specimen (specimen) 07/06/2017 12:20 PM REFRIGERATION INSULATOR 07/06/2017 1:20 PM REFRIGERATION INSULATOR Narrative [facility] - 07/06/2017 1:37 PM REFRIGERATION INSULATOR us Kathryn Ellis MD LAB BLOOD ORDERABLES Fi nal Result Performing Organization Address City/[facility]/ZIP Co de Phone Number [facility] Department [place] [address] * (ABNORMAL) CBC with auto differential (07/06/2017 12:20 PM REFRIGERATION INSULATOR) WBC 5.2 3.8 - 9.9 K/cumm [facility] RBC 4.89 4.30 - 5.80 M/cumm [facility] Hgb 13.7 13.0 - 17.5 g/dL [facility] Hct 39.8 38.9 - 50.3 % [facility] MCV 81.4 81.3 - 96.4 fL [facility] MCH 28.0 27.1 - 33.3 pg [facility] MCHC 34.4 32.3 - 35.7 g/dL [facility] RDW CV 15.4(H) 11.1 - 14.9 % [facility] RDW SD 45.1 35.7 - 48.1 fL [facility] Plt 92(L) 150 - 400 K/cumm [facility] MPV 10.8 9.1 - 12.3 fL [facility] NRBC abs 0.00 0.00 - 0.01 K/cumm [facility] Blood specimen (specimen) 07/06/2017 12:20 PM REFRIGERATION INSULATOR 07/06/2017 1:20 PM REFRIGERATION INSULATOR Narrative [facility] - 07/06/2017 1:37 PM REFRIGERATION INSULATOR us Kathryn Ellis MD LAB BLOOD ORDERABLES Fi nal Result Performing Organization Address City/[facility]/ZIP Co de Phone Number [facility] Department [place] [address] * Protime-INR (07/06/2017 12:20 PM REFRIGERATION INSULATOR) PT 13.0 8.5 - 13.0 sec [facility] INR 1.21 0.80 - 1.21 [facility] Comment: Interpretive Data Inpatient therapeutic ranges* Atrial fibrillation ?2.0-3.0 INR Venous thrombo-embolism ?2.0-3.0 INR Bioprosthetic heart valve ?* Mechanical heart valve, bileaflet or tilting disk,aortic position ? 2.0-3.0 INR All other,or bileaflet or tilting disk, in mitral position ? 2.5-3.5 INR *See the pharmacy resource directory (PHRED) for an updated copy of the Tool Book at [email or web address] Current Interpretive Data was last revised 2011. Blood specimen (specimen) 07/06/2017 12:20 PM REFRIGERATION INSULATOR 07/06/2017 1:20 PM REFRIGERATION INSULATOR Narrative [facility] - 07/06/2017 1:36 PM REFRIGERATION INSULATOR us Kathryn Ellis MD LAB BLOOD ORDERABLES Fi nal Result [facility] Department [place] [address] * DISCHARGE LABORATORY CUMULATIVE REPORT (07/06/2017 12:00 AM REFRIGERATION INSULATOR) Narrative 07/06/2017 12:00 AM REFRIGERATION INSULATOR Ordered by an unspecified provider. us Historical Provider LAB BLOOD ORDERABLES Anastasiya l Result documented in this encounter Visit Diagnoses Not on filedocumented in this encounter Care Teams Computer Equipment Installer Relationship Specialty Start Date End Date Kris Soto MD [address] [id number] PCP - General 12/08/16 10/26/18 documented as of this encounter
--- OUTSIDE RECORDS SUMMARY | 2024-04-19 23:09 | XMS_ITS | Encounter Summary ---
Author Organization [facility] Healthcare Address [address] [place] [address] Care Team Providers Care Database Marketing Manager Name Role Phone Kris Soto MD Primary Care Provide r Encounter Details Date Type Department Care Team (Latest Contact Info) Description 02/02/2018 10:16 AM CDT - 02/03/2018 2:00 AM CDT Hospital Encounter [facility] [address] [place] [address] Sandy Kraus MD [address] [place] [address] Jamal Patino MD [address] [place] [address] Discharge Disposition: Left Against Medical Advice Social History Tobacco Use Types Packs/Day Years Used Date Smoking Tobacco: Former Smokeless Tobacco: Never Alcohol Use Standard Drinks/Week Comments No 0 (1 standard drink = 0.6 oz pur e alcohol) Sex and Gender Information Value Date Recorded Sex Assigned at Not on file Legal Sex 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 Gender Identity Male 10/29/2020 12:37 PM CDT Sexual Orientation Straight 10/29/2020 12 :37 PM CDT documented as of this encounter Last Filed Vital Signs Vital Sign Reading Time Taken Comments Blood Pressure 133/67 02/02/2018 11:50 PM CDT Pulse 93 02/02/2018 11:50 PM CDT Temperature 37.1 ??C (98.8 ??F) 02/02/2018 11:50 PM C DT Respiratory Rate 22 02/02/2018 11:50 PM CDT Oxygen Saturation 95% 02/02/2018 11:50 PM CDT Inhaled Oxygen Concentration - - Weight 122.5 kg (270 lb 1 oz) 02/02/2018 11:52 A M CDT Height 172.7 cm (5' 8 ) 02/02/2018 10:00 AM CDT Body Mass Index 41.06 02/02/2018 10:00 AM CDT documented in this encounter Discharge Summaries * Juana Vigil MD - 02/03/2018 2:00 AM CDT Inpatient Discharge Summary BRIEF OVERVIEW Admitting Provider: Jamal Patino MD Discharge Provider: Jamal Patino MD Primary Care Physician at Discharge: Kris Soto MD [phone] Admission Date: 02/02/2018 Discharge Date: 02/03/2018 Admission Location: [facility] Primary Discharge Diagnosis: Acute gastroenteritis Secondary Discharge Diagnosis: Nausea vomiting and diarrhea 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 * DETAILS OF HOSPITAL STAY Presenting Problem/History of Present Illness: Camilo Curry is a 47 y.o. male with PMH significant for BLAND cirrhosis c/b esophageal varices andHE s/p TIPS in 2016, duodenal polyposis, gallstones, DM who presents with n/v/diarrhea since last night. ?? He ate ramen noodles for dinner fine last night. A couple of hours afterwards he started having abdpain, nausea and vomiting and diarrhea. The vomit was foamy with intermittent streaks of blood. He went to OSH ED and was sent home w pain meds and antiemetics. His did not notice blood in his stool, but did say it had black chunky stuff intermittently. He was having such frequent BMs about every 20 min that he presented to OSH ED again. He's had about 20 BMs total. ?? Pt reports sweating at home but didn't measure his temp. Denies chills, respiratory sx, urinary changes, dysuria, or confusion. Has some abd soreness. Denies recent travel or change in diet. A few weeks ago, his kids had a stomach bug but he stayed away from them. No recent sick contacts since. ?? His cirrhosis was dx 3y ago when he had hematemesis and was found to have esophageal varices. He had TIPS placed 11/2015. Has had HE in the past and takes lactulose intermittently. He's not allowed todrive as a result. ?? OSH ED Course On arrival to OSH ED, vitals sig for 158/82, HR 150, 93% on RA. Labs notable for: Giardia, cryptosporidium, c diff, stool O&P were neg. NH3 60 (H) Amylase and lipase wnl Mg 1.5 AST 83, ALT 111. Tbili 1.27 guaic + CT a/p wo contrast showed esophageal varices, no other findings ?? Pt was transferred from OSH ED to [facility] for higher level of care and to rule out SBP. ?? Hospital Course: #acute gastroenteritis Later on the day of presentation, pt reported improving nausea and diarrhea. Pt remained afebrile, tachycardic 90s, other VSS. Pt's hgb was 13 on admission, remained stable. Pt was advanced to regular diet and tolerated it well. Beside US was negative for any ascites, pt was Aox3, at baseline mental status according to , so there was low concern for SBP. His n/v was thought to be resolving acute gastroenteritis and he was treated with fluids and antiemetics. On the night of admission, pt couldn't sleep and felt good enough to go home, so called his to pick him up. He was explained the risks of leaving including dehydration, hyper and hypoglycemia and the implications including DKA and . Pt verbalized understanding and signed AMA paperwork. ?? #liver cirrhosis C/b esophageal varices and HE in past, s/p TIPS in 2016. He got RUQ this admission that showed slower peak velocity compared to Aug 2017 but still patent. He was continued on rifaximin. Lactulose washeld given diarrhea. -close FU for TIPS -should consider adding beta archie such as propanolol or nadolol outpt #T2DM on U-500 150U w meals at home. Endocrine was consulted and recommended converting this to lantus 70qhs, humalog 30U TID and HDSSI during hospitalization. -resume home regimen Active Issues Requiring Follow-up: -close FU for TIPS -consider adding beta archie such as propanolol or nadolol outpt Test Results Pending at Discharge: Operative Procedures Performed: Other Procedures: Pertinent Test Results: RUQ US w Doppler 02/02 1. Sonographic evidence of hepatic steatosis and cirrhosis. ?? 2. Patent functioning TIPS. Compared to the previous exam dated 08/28/2017, there has been marked interval decrease in the TIPS stent peak velocity (183 to 113 cm/sec). However, there is no significant change since the baseline examination on 12/24/2015 (peak velocity was 147 cm/sec). Persistent antegrade flow in the left and right portal veins, away from the TIPS. Recommend continued attention on follow-up. ?? Discharge Details Physical Exam at Discharge: Discharge Condition: stable Pulse: 93 Resp: 22 BP: 133/67 Temp: 37.1 ??C (98.8 ??F) Weight: 122.5 kg (270 lb 1 oz) Pertinent Exam Findings at Discharge: This MD was not in house to do physical exam at the time of AMA discharge Admission exam: General: Well-nourished and well-developed, in NAD. Head: Normocephalic, atraumatic. Eyes: Sclera anicteric. PERRL. EOMI. ENT: Dry mucous membranes, oropharynx clear without exudates. Lips with dried blood (pt states chronic) Cardiac: RRR, normal S1/S2. No rubs, gallops, or murmurs Pulmonary: Normal respiratory effort. Clear to auscultation bilaterally, bibasilar expiratory wheezing Abdomen: Soft, nondistended, mildly tender in upper quadrants. Normoactive BS. Extremities: Warm and well perfused. 2+ DP pulses. No cyanosis or edema. Neurologic: AOx3. No asterixis. CN 2-12 intact. Grossly normal strength and sensation Psychiatric: Normal mood and affect, answers questions appropriately Discharge Disposition: Left Against Medical Advice Code Status at Discharge: full Discharge Instructions: Discharge Medications: Your medication list CONTINUE taking these medications BD ULTRA-FINE SHORT PEN NEEDLE 31 gauge x 5/16 needle Generic drug: pen needle, diabetic ONETOUCH DELICA LANCETS 30 gauge misc Generic drug: lancets ASK your doctor about these medications ALPRAZolam 0.5 mg tablet Commonly known as: XANAX XANAX 0.5 mg tablet Generic drug: ALPRAZolam ergocalciferol 50,000 unit capsule Commonly known as: VITAMIN D HYDROcodone-acetaminophen 10-325 mg per tablet Commonly known as: NORCO insulin regular U-500 500 unit/mL CONCENTRATED injection Commonly known as: HumuLIN R U-500 HumuLIN R U-500 (Conc) Kwikpen 500 unit/mL (3 mL) CONCENTRATED injection Generic drug: insulin regular U-500 lactulose 0.67 gram/mL solution lactulose 0.67 gram/mL solution omeprazole 20 mg capsule Commonly known as: PriLOSEC omeprazole 20 mg capsule Commonly known as: PriLOSEC ondansetron 4 mg tablet Commonly known as: ZOFRAN ondansetron 4 mg tablet Commonly known as: ZOFRAN ONETOUCH ULTRA BLUE TEST STRIP strip Generic drug: blood glucose diagnostic PROVENTIL HFA 90 mcg/actuation inhaler Generic drug: albuterol HFA rifAXIMin 550 mg tablet Commonly known as: XIFAXAN XIFAXAN 550 mg tablet Generic drug: rifAXIMin traMADol 50 mg tablet Commonly known as: ULTRAM TWINRIX (PF) 720 Nydia unit -20 mcg/mL suspension Generic drug: hepatitis A and B UNKNOWN TO PATIENT Outpatient Follow-Up: Future Appointments Date Time Provider Department Center 02/15/2018 9:00 AM [facility] [place] [address] 02/15/2018 10:30 AM Kathyrn Ellis MD [facility] Contact Information for Follow-ups Kris Soto MD Specialty: Family Medicine, Internal Medicine, Pediatrics Relationship: PCP - General [address] [place] [address] Next Steps: Follow up documented in this encounter Medications at Time [...] 31 gauge x 5/16 needle 01/02/2018 1 ergocalciferol (VITAMIN D) 50,000 unit capsule [...] DAILY NEEDED. 12/08/2016 2 UNKNOWN TO PATIENT Casi U 500 150 units bid 100-150 units hs 1 documented as of this encounter Discharge Disposition Disposition Code Departure Means Destination Left Against Medical Advice documented in this encounter Progress Notes * Raffaele Hopkins RN - 02/02/2018 2:16 PM CDT Impression: Abd pain, history of cirrhosis Additional Information/Options Discussed: pain control, labs Plan Includes: Plan is likely for patient to return home when medically ready. No new home needs identified at this time. Family to provide transportation and assistance at discharge. Insurance verified as: [facility], [place] Medicaid Admission Source: Home 02/02/18 1000 Discharge Planning Type of Residence Apartment Steps in home? No steps inside or outside Living Arrangements Spouse/significant other Support Systems Spouse/significant other Assistance Needed yes Medication Assistance no Home Care Services No Patient expects to be discharged to: Apartment Does the patient need discharge transport arranged? No documented in this encounter H&P Notes * Juana Vigil MD - 02/02/2018 10:28 AM CDT Medicine Firm History and Physical Subjective Source: patient Reliability: fair Chief Complaint: n/v/diarrhea HPI: Camilo Curry is a 47 y.o. male with PMH significant for BLAND cirrhosis c/b esophageal varices andHE s/p TIPS in 2016, duodenal polyposis, gallstones, DM who presents with n/v/diarrhea since last night. He ate ramen noodles for dinner fine last night. A couple of hours afterwards he started having abdpain, nausea and vomiting and diarrhea. The vomit was foamy with intermittent streaks of blood. He went to OSH ED and was sent home w pain meds and antiemetics. His did not notice blood in his stool, but did say it had black chunky stuff intermittently. He was having such frequent BMs about every 20 min that he presented to OSH ED again. He's had about 20 BMs total. Pt reports sweating at home but didn't measure his temp. Denies chills, respiratory sx, urinary changes, dysuria, or confusion. Has some abd soreness. Denies recent travel or change in diet. A few weeks ago, his kids had a stomach bug but he stayed away from them. No recent sick contacts since. His cirrhosis was dx 3y ago when he had hematemesis and was found to have esophageal varices. He had TIPS placed 11/2015. Has had HE in the past and takes lactulose intermittently. He's not allowed todrive as a result. ED Course On arrival to OSH ED, vitals sig for 158/82, HR 150, 93% on RA. At OSH ED, labs notable for: Giardia, cryptosporidium, c diff, stool O&P were neg. NH3 60 (H) Amylase and lipase wnl Mg 1.5 AST 83, ALT 111. Tbili 1.27 guaic + CT a/p wo contrast showed esophageal varices, no other findings Pt was transferred to [facility] for higher level of care and to rule out SBP. PMH: Past Medical History: Diagnosis Date ??? Diabetes (CMS/HCC) ??? Gallbladder calculus ??? BLAND (nonalcoholic steatohepatitis) PSH: Past Surgical History: Procedure Laterality Date ??? TIPS INITIAL N/A 11/23/2015 FHx: None contributory Family History Problem Relation Age of Onset [...] - Relation: Grandmother (Added by TW Conv) HOME MEDICATIONS : ALPRAZolam (XANAX) 0.5 mg tablet insulin regular U-500 (HumuLIN R U-500) 500 unit/mL CONCENTRATED injection lactulose solution 10 gram/15mL omeprazole (PriLOSEC) 20 mg capsule ondansetron (ZOFRAN) 4 mg tablet rifAXIMin (XIFAXAN) 550 mg tablet rifAXIMin (XIFAXAN) 200 mg tablet ALPRAZolam (XANAX) 0.5 mg tablet BD ULTRA-FINE SHORT PEN NEEDLE 31 gauge x 5/16 needle ergocalciferol (VITAMIN D) 50,000 unit capsule hepatitis A and B (TWINRIX, PF,) 720 Nydia unit -20 mcg/mL suspension HUMULIN R U-500, CONC, KWIKPEN 500 unit/mL (3 mL) CONCENTRATED injection HYDROcodone-acetaminophen (NORCO) 10-325 mg per tablet lactulose solution 10 gram/15mL omeprazole (PriLOSEC) 20 mg capsule ondansetron (ZOFRAN) 4 mg tablet ONETOUCH DELICA LANCETS 30 gauge misc ONETOUCH ULTRA BLUE TEST STRIP strip PROVENTIL HFA 90 mcg/actuation inhaler rifAXIMin (XIFAXAN) 550 mg tablet traMADol (ULTRAM) 50 mg tablet UNKNOWN TO PATIENT Allergies Allergen Reactions ??? Ciprofloxacin Other (See [...] hives ??? Octreotide Other (See comments) unk SHx: Social History Substance Use Topics ??? Smoking status: Former Smoker ??? Smokeless tobacco: Never Used ??? Alcohol use No Had hx of meth use in past, had overdose. Quit in along with etoh. Psych hx: delisted due to multiple suicide attempts in 2002 Review of Systems: All other systems were reviewed and are negative except as noted above in the HPI Objective Vitals: Most Recent : Vitals: 02/02/18 1707 BP: 120/67 Pulse: 96 Resp: 20 Temp: 36.8 ??C (98.2 ??F) SpO2: 98% 24hr Min/Max: Temp Min: 36.6 ??C (97.9 ??F) Max: 36.8 ??C (98.2 ??F) Pulse Min: 96 Max: 121 BP Min: 120/67 Max: 146/84 Resp Min: 18 Max: 20 SpO2 Min: 97 % Max: 98 % I/O: No intake/output data recorded. I/O this shift: In: 916.7 [P.O.:360; I.V.:556.7] Out: 100 [Urine:100] Physical exam: General: Well-nourished and well-developed, in NAD. Head: Normocephalic, atraumatic. Eyes: Sclera anicteric. PERRL. EOMI. ENT: Dry mucous membranes, oropharynx clear without exudates. Lips with dried blood (pt states chronic) Cardiac: RRR, normal S1/S2. No rubs, gallops, or murmurs Pulmonary: Normal respiratory effort. Clear to auscultation bilaterally, bibasilar expiratory wheezing Abdomen: Soft, nondistended, mildly tender in upper quadrants. Normoactive BS. Extremities: Warm and well perfused. 2+ DP pulses. No cyanosis or edema. Neurologic: AOx3. No asterixis. CN 2-12 intact. Grossly normal strength and sensation Psychiatric: Normal mood and affect, answers questions appropriately Lab/Radiology/Diagnostic Review: All labs reviewed and notable for Slightly elevated AST/ALT Mg wnl here A1C 8.4 UA wnl Hematology Lab History Some values may be hidden. Unless noted otherwise, only the newest values recorded on each date aredisplayed. Labs - Hematology Latest Ref Range 07/06/17 08/28/17 10/11/17 02/02/18 WBC 3.8 - 9.9 K/cumm 5.2 3.9 3.7 (A) 6.2 Hemoglobin,POC 13.0 - 17.5 g/dL 13.7 13.0 13.3 12.9 (A) Hct 38.9 - 50.3 % 39.8 38.3 (A) 39.5 39.1 Plt 150 - 400 K/cumm 92 (A) 78 (A) 74 (A) 105 (A) Neutrophil abs 1.7 - 6.5 K/cumm 3.83 2.7 5.2 (A) Abnormal value Chem/LFT Lab History Some values may be hidden. Unless noted otherwise, only the newest values recorded on each date aredisplayed. Labs-Chem/LFT Latest Ref Range 07/06/17 08/28/17 10/11/17 02/02/18 Sodium 135 - 145 mmol/L 141 140 135 137 Creatinine 0.80 - 1.30 mg/dL 0.64 (A) 0.70 (A) 0.70 (A) 0.73 (A) Bilirubin, total 0.1 - 1.2 mg/dL 1.5 (A) 1.4 (A) 1.1 1.3 (A) AST 10 - 50 Units/L 108 (A) 53 (A) 44 105 (A) ALT 7 - 55 Units/L 91 (A) 61 (A) 50 83 (A) CrCl- Actual Body Weight (Cockcroft-Gault) 250 227.6 226 216.8 (A) Abnormal value Comments are available for some flowsheets but are not being displayed. Imaging Results: US RUQ Narrative: EXAMINATION: 1. LIMITED ABDOMINAL SONOGRAM 2. LIVER DOPPLER - TIPS HISTORY: 47-year-old man with nonalcoholic steatosis-cirrhosis status post transjugular intrahepatic portosystemic shunt catheter (TIPS) placement on 11/22/2015. COMPARISON: TIPS ultrasound dated 08/28/2017, 10/21/2016 FINDINGS: LIMITED ABDOMEN SONOGRAM: Liver: The liver is normal in size. The echotexture is normal. The echogenicity is increased. There is surface nodularity. No focal solid lesions are visualized. Gallbladder: The gallbladder is normal in size. There are no stones or sludge within the gallbladder. There is is no gallbladder wall thickening. Bile Duct: There is no intrahepatic bile duct dilatation. The common duct measures 4 and 2 in the proximal and mid segments, respectively. Right Kidney: There is no hydronephrosis in the visualized portions of the right kidney. Pancreas: The pancreas is obscured by overlying bowel gas. Inferior vena cava: The proximal IVC is normal. TIPS DOPPLER: Color Doppler and spectral analysis were used to evaluate the stent graft and hepatic vasculature. Portal veins: Main portal vein velocity measures 48 cm/second. Flow is antegrade in both the right and left portal vein branches, away from the TIPS. TIPS stent: Maximum velocity within the stent graft occurs in the proximal portion and measures 113 cm/sec (previously measured 183 cm/sec). Minimum velocity occurs within the mid portion of the stent and measures 109 cm/sec (previously measured 159 cm/sec).There is no evidence of stenosis. Draining hepatic vein: The draining hepatic vein has antegrade flow with a velocity of 59 cm/sec. Collaterals: There is no evidence of collaterals. Ascites: There is no ascites. Impression: 1. Sonographic evidence of hepatic steatosis and [...] the TIPS. Recommend continued attention on follow-up. Dictated by: David Cabrera M.D. Electronically signed by: Kole Escobar M.D. Assessment/Plan Diabetes mellitus, type 2 (CMS/HCC) Assessment & Plan Pt on U-500 150U w meals at home. 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 s/p TIPS in 2016. -RUQ today showing TIPS with slower velocity compared to 08/2017 but still patent, rec close FU. -rifaximin -holding lactulose for diarrhea -should have BB outpt * Nausea vomiting and diarrhea Assessment & Plan Since last night. Now clinically improving. Afebrile [...] -supportive tx - fluids, zofran, replete lytes FENGI: Adult Diet Restricted; Consistent Carbohydrate DVT Prophylaxis: OOB, SCD Code Status: Full Code Contact: Lupe [phone] Dispo: home Juana Vigil MD Cosigned by Jamal Patino MD at 02/03/2018 10:53 AM CDT Associated attestation - Jamal Patino MD - 02/03/2018 10:53 AM CDT I have seen and examined the patient on 02/03/18. I agree with the findings and plan of care as documented in the resident's/fellow's note and as discussed with the resident/fellow. 47M with BLAND cirrhosis transferred from OSH for abd pain, N/V, and diarrhea of acute onset. He wastransferred for concern of SBP. However, on our bedside US, there is no ascites so very low concernfor SBP. Most likely viral gastroenteritis that will resolve spontaneously. At OSH, O/P and C. Diffwere negative. Hgb is stable, patient reports a few scant blood streaks in vomitus, likely just mild esophageal or pharyngeal trauma. No melena or evidence of brisk GI bleed. documented in this encounter Consult Notes * Nirmal Vivar MD - 02/02/2018 6:32 PM CDTAssociated Order(s): CONSULT TO ENDOCRINOLOGY DIABETES Endocrine Diabetes Inpatient Consult 02/02/2018 Camilo Curry [id number] Kris Soto MD CONSULTING PROVIDER: Nirmal Vivar MD REQUESTING PROVIDER: Jamal Patino REASON FOR CONSULTATION: Type 2 Diabetes The risks and benefits of my recommendations, as well as other treatment options were discussed with the patient today. Questions were answered. HISTORY OF PRESENT ILLNESS: Camilo Curry is a 47 y.o. male who presents with Type 2 Diabetes. The patient is currently hospitalized for Type 2 Diabetes. Mr. Curry is a 47yo w/ cirrhosis, DM2 who presents for acute vomiting and diarrhea. Pt was in his usual state of health until the evening prior to admission, ~10pm, when he started toexperience nausea with production of thick foam , abdominal pain, and severe diarrhea. He visited local ED ([facility]) and was given pain medications for concern for gastroenteritis. He was discharged home but continued to experience watery diarrhea with occasional black chunks and additional vomiting with occasional streaks of red blood. He presented to [facility] for persistent symptoms and was given IVF and monitored; during this time, his diarrhea persisted and reports>20 episodes of diarrhea since onset. He was transferred to [facility] for SBP rule out and higher level of care. He endorses dizziness and cold sweats. He denies fever, headache, chest pain. Regarding his DM2: He was diagnosed in 2010 and was started on insulin about 3 years ago. He previously followed with Dr. Power in [place], [place]. 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 He has never had DKA or HHS. He has retinopathy and peripheral neuropathy but no known nephropathy. Current regimen U-500 kwikpen 150 units TID BG ranges in the 190-300s on average. He has no hypoglycemia with his current regimen and feels lows in the 190s. Most recent a1c was 8.4% here. Blood sugar on admission was: Recent Labs Lab Units 02/02/18 1633 02/02/18 1223 02/02/18 1203 GLUCOSE mg/dL -- 255* -- POC GLUCOSE MONITOR mg/dL 178 -- 231* Most recent hemoglobin A1C was: Lab Results Component Value Date HGBA1C 8.4 (H) 02/02/2018 He has not symptoms of hyperglycemia prior to admission. The initial diagnosis of diabetes was made 2010. He is not on steroids. He is not on pressors. Home diabetes regimen consists of: Prior to Admission medications Medication Sig Start Date End Date Taking? Authorizing Provider ALPRAZolam (XANAX) 0.5 mg tablet Take 0.5 mg by mouth as needed for anxiety. Yes Historical Provider, insulin regular U-500 (HumuLIN R U-500) 500 unit/mL CONCENTRATED injection Inject 150 Units under the skin 3 (three) times a day before meals. Yes Historical Provider, lactulose solution 10 gram/15mL Yes Historical Provider, omeprazole (PriLOSEC) 20 mg capsule Take 20 mg by mouth daily. Yes Historical Provider, ondansetron (ZOFRAN) 4 mg tablet Take 4 mg by mouth every 8 (eight) hours as needed for nausea or vomiting. Yes Historical Provider, rifAXIMin (XIFAXAN) 550 mg tablet Take 550 mg by mouth. Yes Historical Provider, rifAXIMin (XIFAXAN) 200 mg tablet Take 550 mg by mouth 3 (three) times a day. 02/02/18 Yes Historical Provider, ALPRAZolam (XANAX) 0.5 mg tablet TAKE 1 TABLET TWICE DAILY NEEDED. 09/10/15 Historical Provider, BD ULTRA-FINE SHORT PEN NEEDLE 31 gauge x 09/16 needle 01/02/18 Historical Provider, ergocalciferol (VITAMIN D) 50,000 unit capsule once a week. 07/07/17 Historical Provider, hepatitis A and B (TWINRIX, PF,) 720 Nydia unit -20 mcg/mL suspension Inject into the muscle as instructed. 09/20/15 Historical Provider, HUMULIN R U-500, CONC, KWIKPEN 500 unit/mL (3 mL) CONCENTRATED injection 01/02/18 Historical Provider, HYDROcodone-acetaminophen (NORCO) 10-325 mg per tablet as directed for pain prn 09/10/15 Historical Provider, lactulose solution 10 gram/15mL TAKE 30MLS BY MOUTH FOUR TIMES A DAY NEEDED 09/10/15 Historical Provider, omeprazole (PriLOSEC) 20 mg capsule 2 times daily. 09/10/15 Historical Provider, ondansetron (ZOFRAN) 4 mg tablet take 1 tab every 8 hours prn nausea and vomitting 09/10/15 Historical ProviderMD FAM LANCETS 30 gauge misc 11/02/17 Historical Provider, MD ONETOUCH ULTRA BLUE TEST STRIP strip 01/05/18 Historical Provider, PROVENTIL HFA 90 mcg/actuation inhaler 01/14/18 Historical Provider, rifAXIMin (XIFAXAN) 550 mg tablet 2 times daily. 01/21/16 Historical Provider, traMADol (ULTRAM) 50 mg tablet TAKE 1 TABLET 3 TIMES DAILY NEEDED. 12/08/16 Historical Provider, UNKNOWN TO PATIENT Humalog U 500 150 units bid 100-150 units hs Historical Provider, Patient is eating. Compliance with diabetic therapy is estimated to be good. Patient has never previously been in diabetic ketoacidosis. Patient has never had episodes of hypoglycemia which have required medical attention or secondary assistance. Hypoglycemia occurs 0 times a week. While in the hospital, patient has been on: Diabetic complications include: retinopathy and peripheral neuropathy. Comorbidities include: Cirrhosis Past Medical History: Diagnosis Date ??? Diabetes (CMS/HCC) ??? Gallbladder calculus ??? BLAND (nonalcoholic steatohepatitis) Past Surgical History: Procedure Laterality Date ??? TIPS INITIAL N/A 11/23/2015 Allergies Allergen Reactions ??? Ciprofloxacin Other (See [...] hives ??? Octreotide Other (See comments) unk Family History Problem Relation Age of Onset [...] Grandmother (Added by TW Conv) Social History Social History ??? Marital status: Single Spouse name: N/A ??? Number of children: N/A ??? Years of education: N/A Social History Main Topics ??? Smoking status: Former Smoker ??? Smokeless tobacco: Never Used ??? Alcohol use No ??? Drug use: No ??? Sexual activity: Not on file Other Topics Concern ??? Not on file Social History Narrative ??? No narrative on file Review of Systems Review of systems per HPI and otherwise all other systems are negative OBJECTIVE: Vitals: 02/02/18 1000 02/02/18 1152 02/02/18 1707 BP: 146/84 120/67 BP Location: Left arm Right arm Patient Position: Sitting Lying Pulse: 121 96 Resp: 18 20 Temp: 36.6 ??C (97.9 ??F) 36.8 ??C (98.2 ??F) TempSrc: Oral Oral SpO2: 97% 98% Weight: 122.5 kg (270 lb) 122.5 kg (270 lb 1 oz) Height: 172.7 cm (5' 8 ) I/O this shift: In: 240 [P.O.:240] Out: 100 [Urine:100] Physical Exam Gen: WD/WN. Obese. HENT: NC/AT. Moist mucous membranes. EYES: PERRL. EOMI. Anicteric conjunctiva. No exophthalmos. No lid lag. NECK: supple CV: S1. S2. Regular rate and rhythm. No lower extremity edema Pulm: Clear to auscultation bilaterally. Abd: soft, non-tender, non-distended MSK: no clubbing, cyanosis or edema. Feet with hammertoe deformities. No charcot deformities or ulceration SKIN: dry, no rashes. NEURO: alert and oriented x3. Moving all extremities PSYCH: appropriate affect LAB/IMAGING: Recent Results (from the past 24 hour(s)) POCT glucose Collection Time: 02/02/18 12:03 PM Result Value Ref Range Glucose, POC, bld 231 (H) 70 - 199 mg/dL Glucose comment 1 RN Notified Glucose comment 2 Doctor Notified Comprehensive metabolic panel Collection Time: 02/02/18 12:23 PM Result Value Ref Range Sodium 137 135 - 145 mmol/L Potassium, pl 5.0 (H) 3.3 - 4.9 mmol/L Chloride 106 97 - 110 mmol/L CO2 23 22 - 32 mmol/L Anion Gap 8 2 - 15 mmol/L BUN 15 8 - 25 mg/dL Creatinine 0.73 (L) 0.80 - 1.30 mg/dL Glucose 255 (H) 70 - 199 mg/dL Calcium 8.7 8.5 - 10.3 mg/dL Bilirubin, total 1.3 (H) 0.1 - 1.2 mg/dL Protein, pl 7.1 6.5 - 8.5 g/dL Albumin 3.8 3.5 - 5.0 g/dL Alk phos 71 40 - 130 Units/L ALT 83 (H) 7 - 55 Units/L AST 105 (H) 10 - 50 Units/L Magnesium Collection Time: 02/02/18 12:23 PM Result Value Ref Range Magnesium 1.4 1.4 - 2.5 mg/dL Phosphorus Collection Time: 02/02/18 12:23 PM Result Value Ref Range Phosphorus, pl 2.9 2.3 - 4.5 mg/dL CBC with auto differential Collection Time: 02/02/18 12:23 PM Result Value Ref Range WBC 6.2 3.8 - 9.9 K/cumm Hgb 12.9 (L) 13.0 - 17.5 g/dL Hct 39.1 38.9 - 50.3 % Plt 105 (L) 150 - 400 K/cumm MPV 11.7 9.1 - 12.3 fL RBC 4.77 4.30 - 5.80 M/cumm MCV 82.0 81.3 - 96.4 fL MCH 27.0 (L) 27.1 - 33.3 pg MCHC 33.0 32.3 - 35.7 g/dL RDW CV 15.5 (H) 11.1 - 14.9 % RDW SD 46.0 35.7 - 48.1 fL NRBC Abs 0.00 0.00 - 0.01 K/cumm Type and screen Collection Time: 02/02/18 12:23 PM Result Value Ref Range ABO Rh A Positive Steve, indirect Negative Protime-INR Collection Time: 02/02/18 12:23 PM Result Value Ref Range PT 14.3 (H) 8.5 - 13.0 sec INR 1.24 (H) 0.80 - 1.21 aPTT Collection Time: 02/02/18 12:23 PM Result Value Ref Range aPTT 24.2 (L) 25.0 - 37.0 sec Hemoglobin A1c Collection Time: 02/02/18 12:23 PM Result Value Ref Range Hgb A1C 8.4 (H) 4.0 - 5.6 % Estimated Average Glucose 194 mg/dL Differential, auto Collection Time: 02/02/18 12:23 PM Result Value Ref Range Neutrophil absolute 5.2 1.7 - 6.5 K/cumm Immature granulocyte absolute 0.0 0.0 - 0.1 K/cumm Lymphocytes absolute 0.5 (L) 0.8 - 3.3 K/cumm Monocyte absolute 0.4 0.2 - 0.8 K/cumm Eosinophils absolute 0.0 0.0 - 0.5 K/cumm Basophils, abs 0.0 0.0 - 0.1 K/cumm Neutrophils 84.5 % Immature granulocytes 0.3 % Lymphocytes 7.6 % Monocytes 6.8 % Eosinophils 0.5 % Basophils 0.3 % Urinalysis reflex to microscopic and culture Urine Collection Time: 02/02/18 12:59 PM Result Value Ref Range Color, ur Yellow Yellow Clarity, ur Clear Clear Specific gravity, ur 1.027 (H) 1.010 - 1.025 pH, urine 5.0 Protein, ur ql 1+ (A) Negative Glucose, ur ql 2+ (A) Negative Ketones, ur Negative Negative Bilirubin, ur Negative Negative Blood, ur Negative Negative Urobilinogen, ur <2.0 <2.0 mg/dL Nitrite, ur Negative Negative Leukocyte esterase, ur Negative Negative Urinalysis, microscopic only Collection Time: 02/02/18 12:59 PM Result Value Ref Range WBC, ur 0-5 0 - 5 /HPF RBC, ur 0-5 0 - 5 /HPF Mucous, ur Present (A) POCT glucose Collection Time: 02/02/18 4:33 PM Result Value Ref Range Glucose, POC, bld 178 70 - 199 mg/dL Lab Results Component Value Date TSH 1.59 11/03/2015 Lab Results Component Value Date CORTISOL 12.8 11/03/2015 No results found for: CPEPTIDE Lab Results Component Value Date CHOL 115 08/28/2017 TRIG 110 08/28/2017 HDL 34 (L) 08/28/2017 LDL 78 11/07/2015 No results found for: PTH Nirmal Vivar MD Assessment/Plan Diabetes mellitus, type 2 (CMS/HCC) Assessment & Plan Inpatient target 100-180mg/dl 47yo w/ cirrhosis and DM2 on insulin therapy (U-500) presents with nausea/diarrhea. Given that a significant amount of insulin requirements with U- 500 are driven by diet, will dose the patient at a little less than 50% his home total daily dose. Recommend lantus 70 units tonight humalog 30 units with meals High dose sliding scale humalog with meals Discharge: Can likely resume home regimen and follow-up with home cork molder High risk medication use Assessment & Plan Check blood glucoses QID Hepatic cirrhosis (CMS/HCC) Assessment & Plan Management per primary team Cosigned by Kirk Easton MD at 02/02/2018 7:55 PM CDT Associated attestation - Kirk Easton MD - 02/02/2018 7:55 PM CDT I have seen and examined the patient on 02/02/18. I agree with the findings and plan of care as documented in the resident's/fellow's note. documented in this encounter Nursing Notes * Sixto Marrero, RN - 02/03/2018 1:57 AM CDT Pt states he is leaving AMA. Pt is A&Ox4 pt was educated on the risk of hyperglycemia and hypoglycemia. Pt still wants to leave and states his is on the way. Dr Lizama, Dr Brock and Manuel the Ward Supervisor notified. Pt's IV was D/C and pt vital signs are stable. Pt left AMA at 0200 on 08/04/2017 * Elver Davis RN - 02/02/2018 10:31 AM CDT Pt. Admitted to [id number] from OSH. Pt. A&Ox4. Pt. C/o mid upper abdomen pain. Pt. Vss. Orientation to room provided. Call light within reach. Awaiting MD to see pt. And orders. documented in this encounter Miscellaneous Notes * Significant Event - Tena Brock MD - 02/03/2018 1:57 AM CDT Night float called to patient's room after patient stated that he wanted to leave immediately. The patient stated that he was not able to sleep and the day team physicians had stated he could likely leave tomorrow morning so he wanted to leave at this time. He additionally stated that he had calledhis and she was coming to take him home. The patient was alert and oriented x 3 per MD assessment. Given the patient has an appointment with an OS cork molder today (02/03) we provided him with a copy of the endocrinology consult note from 02/02. Nightfloat explained the risks of leaving the hospital at this time including hypoglycemia, hyperglycemia and the complications thereof including DKA, altered consciousness and . He expressed understanding of these risks and signed the AMApaperwork. Nursing yard labor supervisor aware of situation. * Plan of Care - Sixto Marrero RN - 02/03/2018 12:50 AM CDT Goals: Clinical Goals for the Shift: decrease abd pain Summary: * Assessment & Plan Note - Juana Vigil MD - 02/02/2018 6:53 PM CDT Associated Problem(s): Diabetes mellitus, type 2 (HCC) Pt on U-500 150U w meals at home. -Endocrine c/s: rec lantus 70 qhs, humalog 30U TID, HDSSI * Assessment & Plan Note - Juana Vigil MD - 02/02/2018 6:39 PM CDT Associated Problem(s): Nausea vomiting and diarrhea Since last night. Now clinically improving. 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 s/p TIPS in 2015. -RUQ today showing TIPS with slower velocity compared to 08/2017 but still patent, rec close FU. -rifaximin -holding lactulose for diarrhea -should have BB outpt * Assessment & Plan Note - Nirmal Vivar MD - 02/02/2018 6:30 PM CDT Associated Problem(s): Diabetes mellitus, type 2 (HCC) Inpatient target 100-180mg/dl 47yo w/ cirrhosis and DM2 on insulin therapy (U-500) presents with nausea/diarrhea. Given that a significant amount of insulin requirements with U- 500 are driven by diet, will dose the patient at a little less than 50% his home total daily dose. Recommend lantus 70 units tonight humalog 30 units with meals High dose sliding scale humalog with meals Discharge: Can likely resume home regimen and follow-up with home cork molder * Assessment & Plan Note - Nirmal Vivar MD - 02/02/2018 6:30 PM CDT Associated Problem(s): High risk medication use Check blood glucoses QID * Assessment & Plan Note - Nirmal Vivar MD - 02/02/2018 6:29 PM CDT Associated Problem(s): 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) Management per primary team * Subjective & Objective - Nirmal Vivar MD - 02/02/2018 6:23 PM CDT Endocrine Diabetes Inpatient Consult 02/02/2018 Camilo Curry [phone] Kris Soto MD CONSULTING PROVIDER: Nirmal Vivar MD REQUESTING PROVIDER: Jamal Patino REASON FOR CONSULTATION: Type 2 Diabetes The risks and benefits of my recommendations, as well as other treatment options were discussed with the patient today. Questions were answered. HISTORY OF PRESENT ILLNESS: Camilo Curry is a 47 y.o. male who presents with Type 2 Diabetes. The patient is currently hospitalized for Type 2 Diabetes. Mr. Curry is a 47yo w/ cirrhosis, DM2 who presents for acute vomiting and diarrhea. Pt was in his usual state of health until the evening prior to admission, ~10pm, when he started toexperience nausea with production of thick foam , abdominal pain, and severe diarrhea. He visited local ED ([facility]) and was given pain medications for concern for gastroenteritis. He was discharged home but continued to experience watery diarrhea with occasional black chunks and additional vomiting with occasional streaks of red blood. He presented to [facility] for persistent symptoms and was given IVF and monitored; during this time, his diarrhea persisted and reports>20 episodes of diarrhea since onset. He was transferred to [facility] for SBP rule out and higher level of care. He endorses dizziness and cold sweats. He denies fever, headache, chest pain. Regarding his DM2: He was diagnosed in 2010 and was started on insulin about 3 years ago. He previously followed with Dr. Power in [place], [place]. 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 He has never had DKA or HHS. He has retinopathy and peripheral neuropathy but no known nephropathy. Current regimen U-500 kwikpen 150 units TID BG ranges in the 190-300s on average. He has no hypoglycemia with his current regimen and feels lows in the 190s. Most recent a1c was 8.4% here. Blood sugar on admission was: Recent Labs Lab Units 02/02/18 1633 02/02/18 1223 02/02/18 1203 GLUCOSE mg/dL -- 255* -- POC GLUCOSE MONITOR mg/dL 178 -- 231* Most recent hemoglobin A1C was: Lab Results Component Value Date HGBA1C 8.4 (H) 02/02/2018 He has not symptoms of hyperglycemia prior to admission. The initial diagnosis of diabetes was made 2010. He is not on steroids. He is not on pressors. Home diabetes regimen consists of: Prior to Admission medications Medication Sig Start Date End Date Taking? Authorizing Provider ALPRAZolam (XANAX) 0.5 mg tablet Take 0.5 mg by mouth as needed for anxiety. Yes Historical Provider, insulin regular U-500 (HumuLIN R U-500) 500 unit/mL CONCENTRATED injection Inject 150 Units under the skin 3 (three) times a day before meals. Yes Historical Provider, lactulose solution 10 gram/15mL Yes Historical Provider, omeprazole (PriLOSEC) 20 mg capsule Take 20 mg by mouth daily. Yes Historical Provider, ondansetron (ZOFRAN) 4 mg tablet Take 4 mg by mouth every 8 (eight) hours as needed for nausea or vomiting. Yes Historical Provider, rifAXIMin (XIFAXAN) 550 mg tablet Take 550 mg by mouth. Yes Historical Provider, rifAXIMin (XIFAXAN) 200 mg tablet Take 550 mg by mouth 3 (three) times a day. 02/02/18 Yes Historical Provider, ALPRAZolam (XANAX) 0.5 mg tablet TAKE 1 TABLET TWICE DAILY NEEDED. 09/10/15 Historical Provider, BD ULTRA-FINE SHORT PEN NEEDLE 31 gauge x 09/16 needle 01/02/18 Historical Provider, ergocalciferol (VITAMIN D) 50,000 unit capsule once a week. 07/07/17 Historical Provider, hepatitis A and B (TWINRIX, PF,) 720 Nydia unit -20 mcg/mL suspension Inject into the muscle as instructed. 09/20/15 Historical Provider, HUMULIN R U-500, CONC, KWIKPEN 500 unit/mL (3 mL) CONCENTRATED injection 01/02/18 Historical Provider, HYDROcodone-acetaminophen (NORCO) 10-325 mg per tablet as directed for pain prn 09/10/15 Historical Provider, lactulose solution 10 gram/15mL TAKE 30MLS BY MOUTH FOUR TIMES A DAY NEEDED 09/10/15 Historical Provider, omeprazole (PriLOSEC) 20 mg capsule 2 times daily. 09/10/15 Historical Provider, ondansetron (ZOFRAN) 4 mg tablet take 1 tab every 8 hours prn nausea and vomitting 09/10/15 Historical Provider, MD FAM NORMAN LANCETS 30 gauge misc 7/2/18 Historical Provider, ONETOKRIS ULTRA BLUE TEST STRIP strip 01/05/18 Historical Provider, PROVENTIL HFA 90 mcg/actuation inhaler 01/14/18 Historical Provider, rifAXIMin (XIFAXAN) 550 mg tablet 2 times daily. 01/21/16 Historical Provider, traMADol (ULTRAM) 50 mg tablet TAKE 1 TABLET 3 TIMES DAILY NEEDED. 12/08/16 Historical Provider, UNKNOWN TO PATIENT Humalog U 500 150 units bid 100-150 units hs Historical Provider, Patient is eating. Compliance with diabetic therapy is estimated to be good. Patient has never previously been in diabetic ketoacidosis. Patient has never had episodes of hypoglycemia which have required medical attention or secondary assistance. Hypoglycemia occurs 0 times a week. While in the hospital, patient has been on: Diabetic complications include: retinopathy and peripheral neuropathy. Comorbidities include: Cirrhosis Past Medical History: Diagnosis Date ??? Diabetes (CMS/HCC) ??? Gallbladder calculus ??? BLAND (nonalcoholic steatohepatitis) Past Surgical History: Procedure Laterality Date ??? TIPS INITIAL N/A 11/23/2015 Allergies Allergen Reactions ??? Ciprofloxacin Other (See [...] hives ??? Octreotide Other (See comments) unk Family History Problem Relation Age of Onset [...] Grandmother (Added by TW Conv) Social History Social History ??? Marital status: Single Spouse name: N/A ??? Number of children: N/A ??? Years of education: N/A Social History Main Topics ??? Smoking status: Former Smoker ??? Smokeless tobacco: Never Used ??? Alcohol use No ??? Drug use: No ??? Sexual activity: Not on file Other Topics Concern ??? Not on file Social History Narrative ??? No narrative on file Review of Systems Review of systems per HPI and otherwise all other systems are negative OBJECTIVE: Vitals: 02/02/18 1000 02/02/18 1152 02/02/18 1707 BP: 146/84 120/67 BP Location: Left arm Right arm Patient Position: Sitting Lying Pulse: 121 96 Resp: 18 20 Temp: 36.6 ??C (97.9 ??F) 36.8 ??C (98.2 ??F) TempSrc: Oral Oral SpO2: 97% 98% Weight: 122.5 kg (270 lb) 122.5 kg (270 lb 1 oz) Height: 172.7 cm (5' 8 ) I/O this shift: In: 240 [P.O.:240] Out: 100 [Urine:100] Physical Exam Gen: WD/WN. Obese. HENT: NC/AT. Moist mucous membranes. EYES: PERRL. EOMI. Anicteric conjunctiva. No exophthalmos. No lid lag. NECK: supple CV: S1. S2. Regular rate and rhythm. No lower extremity edema Pulm: Clear to auscultation bilaterally. Abd: soft, non-tender, non-distended MSK: no clubbing, cyanosis or edema. Feet with hammertoe deformities. No charcot deformities or ulceration SKIN: dry, no rashes. NEURO: alert and oriented x3. Moving all extremities PSYCH: appropriate affect LAB/IMAGING: Recent Results (from the past 24 hour(s)) POCT glucose Collection Time: 02/02/18 12:03 PM Result Value Ref Range Glucose, POC, bld 231 (H) 70 - 199 mg/dL Glucose comment 1 RN Notified Glucose comment 2 Doctor Notified Comprehensive metabolic panel Collection Time: 02/02/18 12:23 PM Result Value Ref Range Sodium 137 135 - 145 mmol/L Potassium, pl 5.0 (H) 3.3 - 4.9 mmol/L Chloride 106 97 - 110 mmol/L CO2 23 22 - 32 mmol/L Anion Gap 8 2 - 15 mmol/L BUN 15 8 - 25 mg/dL Creatinine 0.73 (L) 0.80 - 1.30 mg/dL Glucose 255 (H) 70 - 199 mg/dL Calcium 8.7 8.5 - 10.3 mg/dL Bilirubin, total 1.3 (H) 0.1 - 1.2 mg/dL Protein, pl 7.1 6.5 - 8.5 g/dL Albumin 3.8 3.5 - 5.0 g/dL Alk phos 71 40 - 130 Units/L ALT 83 (H) 7 - 55 Units/L AST 105 (H) 10 - 50 Units/L Magnesium Collection Time: 02/02/18 12:23 PM Result Value Ref Range Magnesium 1.4 1.4 - 2.5 mg/dL Phosphorus Collection Time: 02/02/18 12:23 PM Result Value Ref Range Phosphorus, pl 2.9 2.3 - 4.5 mg/dL CBC with auto differential Collection Time: 02/02/18 12:23 PM Result Value Ref Range WBC 6.2 3.8 - 9.9 K/cumm Hgb 12.9 (L) 13.0 - 17.5 g/dL Hct 39.1 38.9 - 50.3 % Plt 105 (L) 150 - 400 K/cumm MPV 11.7 9.1 - 12.3 fL RBC 4.77 4.30 - 5.80 M/cumm MCV 82.0 81.3 - 96.4 fL MCH 27.0 (L) 27.1 - 33.3 pg MCHC 33.0 32.3 - 35.7 g/dL RDW CV 15.5 (H) 11.1 - 14.9 % RDW SD 46.0 35.7 - 48.1 fL NRBC Abs 0.00 0.00 - 0.01 K/cumm Type and screen Collection Time: 02/02/18 12:23 PM Result Value Ref Range ABO Rh A Positive Steve, indirect Negative Protime-INR Collection Time: 02/02/18 12:23 PM Result Value Ref Range PT 14.3 (H) 8.5 - 13.0 sec INR 1.24 (H) 0.80 - 1.21 aPTT Collection Time: 02/02/18 12:23 PM Result Value Ref Range aPTT 24.2 (L) 25.0 - 37.0 sec Hemoglobin A1c Collection Time: 02/02/18 12:23 PM Result Value Ref Range Hgb A1C 8.4 (H) 4.0 - 5.6 % Estimated Average Glucose 194 mg/dL Differential, auto Collection Time: 02/02/18 12:23 PM Result Value Ref Range Neutrophil absolute 5.2 1.7 - 6.5 K/cumm Immature granulocyte absolute 0.0 0.0 - 0.1 K/cumm Lymphocytes absolute 0.5 (L) 0.8 - 3.3 K/cumm Monocyte absolute 0.4 0.2 - 0.8 K/cumm Eosinophils absolute 0.0 0.0 - 0.5 K/cumm Basophils, abs 0.0 0.0 - 0.1 K/cumm Neutrophils 84.5 % Immature granulocytes 0.3 % Lymphocytes 7.6 % Monocytes 6.8 % Eosinophils 0.5 % Basophils 0.3 % Urinalysis reflex to microscopic and culture Urine Collection Time: 02/02/18 12:59 PM Result Value Ref Range Color, ur Yellow Yellow Clarity, ur Clear Clear Specific gravity, ur 1.027 (H) 1.010 - 1.025 pH, urine 5.0 Protein, ur ql 1+ (A) Negative Glucose, ur ql 2+ (A) Negative Ketones, ur Negative Negative Bilirubin, ur Negative Negative Blood, ur Negative Negative Urobilinogen, ur <2.0 <2.0 mg/dL Nitrite, ur Negative Negative Leukocyte esterase, ur Negative Negative Urinalysis, microscopic only Collection Time: 02/02/18 12:59 PM Result Value Ref Range WBC, ur 0-5 0 - 5 /HPF RBC, ur 0-5 0 - 5 /HPF Mucous, ur Present (A) POCT glucose Collection Time: 02/02/18 4:33 PM Result Value Ref Range Glucose, POC, bld 178 70 - 199 mg/dL Lab Results Component Value Date TSH 1.59 11/03/2015 Lab Results Component Value Date CORTISOL 12.8 11/03/2015 No results found for: CPEPTIDE Lab Results Component Value Date CHOL 115 08/28/2017 TRIG 110 08/28/2017 HDL 34 (L) 08/28/2017 LDL 78 11/07/2015 No results found for: PTH Nirmal Vivar MD * Medical Student - Malena Fernández - 02/02/2018 12:50 PM CDT History and Physical Division of Hospital Medicine Chief Complaint: diarrhea Subjective Camilo Curry is a 47 y.o. male with PMH of BLAND cirrhosis and T2DM who presents with diarrhea. HPI: Mr. Curry is a 47 YOM with a PMH of T2DM and BLAND cirrhosis c/b esophageal varices s/p TIPS and banding who was transferred from OSH for 12 hour history of vomiting and severe diarrhea. Pt was in his usual state of health until the evening prior to admission, ~10pm, when he started to experience nausea with production of thick foam , abdominal pain, and severe diarrhea. He visited local ED ([facility]) and was given pain medications for concern for gastroenteritis. He was discharged home but continued to experience watery diarrhea with occasional black chunks and additional vomiting with occasional streaks of red blood. He presented to [facility] for persistent symptoms and was given IVF and monitored; during this time, his diarrhea persisted and reports >20 episodes of diarrhea since onset. He was transferred to [facility] for SBP rule out and higher level of care. He endorses dizziness and cold sweats. He denies fever, headache, chest pain. Pt is prescribed lactulose and rifaximin for his BLAND cirrhosis and reports moderate compliance. At OSH, pt was positive for stool blood and negative for giardia, cryptosporidium, clostridium difficile. Labs were notable for elevated lipase (160) , amylase (74), ammonia (60). CT A/P noted TIPS in place with mild cirrhosis, w/o acute obstruction or inflammation. PMH - BLAND cirrhosis, dx 2014, s/p TIPS (2016) and esophageal banding - T2DM, HgbA1c (08/28/17) 8.0, Humulin 150 U TIDAC - MDD, multiple suicide attempts in 2002 - anxiety, xanax - duodenal polyps - spinal stenosis PSH - TIPS, 11/2015 - colonoscopy Allergen Reactions ??? Penicillins Anaphylaxis ??? Erythromycin Hives ??? Esomeprazole Hives ??? Sulfa (Sulfonamide Antibiotics) Hives ??? Ciprofloxacin Urticaria Family History Relation ??? Ovarian cancer Mother ??? Throat cancer Father ??? Breast cancer Grandmother ??? Stomach cancer Grandmother ??? Heart attack Grandmother ??? Hypertension Grandmother Social Pt lives at home with his . He reports quitting smoking and drinking (socially) 17 years ago. 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 Objective Vitals: 24hr Min/Max: Temp Min: 36.6 ??C (97.9 ??F) Max: 36.6 ??C (97.9 ??F) Pulse Min: 121 Max: 121 BP Min: 146/84 Max: 146/84 Resp Min: 18 Max: 18 SpO2 Min: 97 % Max: 97 % Physical exam: General: NAD, well developed, well nourished. Eyes: PERRL, EOMI, anicteric. HENT: NC/AT. Oropharynx normal, moist mucus membranes; lips with dried blood and possible jaundice Lungs: Clear to auscultation in all lung khalil, unlabored. Trachea midline. Cardiovascular: RRR, normal S1 and S2, no murmurs, no JVD; distant heart sounds GI: Soft, non-distended, bowel sounds positive, no organomegaly; mildly TTP diffusely Skin: Pt has scars on forearms and legs from suicide attempt in 2002 Extremities: Normal without edema or cyanosis Lymph: No cervical, supraclavicular, axillary or inguinal adenopathy Neurologic: AOx3, CNII-XII intact Psychiatric: Normal affect and mood. Lab/Radiology/Diagnostic Review: Component Value GLUCOSE 255 (H) CALCIUM 8.7 SODIUM 137 POTASSIUM 5.0 (H) CO2 23 CHLORIDE 106 BUNSER 15 CREATININE 0.73 (L) Component Value WBC 6.2 HGB 12.9 (L) HCT 39.1 MCV 82.0 LABPLAT 105 (L) Component Value ALT 83 (H) AST 105 (H) ALKPHOS 71 BILITOT 1.3 (H) Assessment and Plan Mr. Curry is 47 YOM w/ PMH of BLAND cirrhosis c/b esophageal varices s/p TIPS and banding who presented to an OSH for acute onset of vomiting and severe diarrhea. Pt's labs were consistent with chronic BLAND cirrhosis AST/ALT 105/83 and tBR 1.3. #Diarrhea The pt's presentation of acute onset diarrhea with a history of BLAND cirrhosis is most concerning for SBP. A bedside abdominal ultrasound was negative for ascites and the lack of fever and leukocytosis lower this on our differential. Other possible etiologies include viral gastroenteritis, malabsorption 2/2 cirrhosis,or an inflammatory process. 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 and banding - continue lactulose, rifaximin 550 mg BID - start protonix 50 mg BID #T2DM Pt has a h/o T2DM with last HgbA1c 8.0 (08/2017) controlled with Humulin 150U TIDAC - endocrinology consult #Diet: NPO #PPx: hold in setting of possible bleed #Code: Full ANGE Montesinos3 Cosigned by Jamal Patino MD at 02/03/2018 10:44 AM CDT * Plan of Care - Elver Davis RN - 02/02/2018 11:04 AM CDT Goals: Clinical Goals for the Shift: decrease abd pain Summary: documented in this encounter Plan of Treatment Not on file documented as of this encounter Procedures Procedure Name Priority Date/Time Associated Diagnosis Comments POCT GLUCOSE DEVICE Routine Gen Lab 02/02/2018 9 :19 PM CDT LACTATE Routine 02/02/2018 5:30 PM CDT POCT GLUCOSE DEVICE Routine Gen Lab 02/02/2018 4 :33 PM CDT US RUQ IP Routine 02/02/2018 3:43 PM CDT URINALYSIS AND REFLEX TO MICROSCOPIC AND CULTURE Routine 02/02/2018 12:59 PM CDT URINALYSIS, MICROSCOPIC ONLY Routine Gen Lab 02/02/2018 12:59 PM CDT DIFFERENTIAL AUTO Routine Gen Lab 02/02/2018 12: 23 PM CDT CBC WITH AUTO DIFFERENTIAL Routine 02/02/2018 12:23 PM CDT APTT Routine 02/02/2018 12:23 PM CDT PROTIME-INR Routine 02/02/2018 12:23 PM CDT TYPE AND SCREEN Timed 02/02/2018 12:23 PM CDT PHOSPHORUS Routine 02/02/2018 12:23 PM CDT MAGNESIUM Routine 02/02/2018 12:23 PM CDT HEMOGLOBIN A1C Routine 02/02/2018 12:23 PM CDT COMPREHENSIVE METABOLIC PANEL Routine 02/02/2018 12:23 PM CDT POCT GLUCOSE DEVICE Routine Gen Lab 02/02/2018 1 2:03 PM CDT documented in this encounter Results * POCT glucose (02/02/2018 9:19 PM CDT) Glucose, POC 189 70 - 199 mg/dL [facility] Blood specimen (specimen) 02/02/2018 9:19 PM CDT 02/02/2018 9:19 PM CDT Narrative [facility] - 02/02/2018 9:21 PM CDT us Jamal Patino MD LAB POCT ORDERABLES - DEV ICE Final Result Performing Organization Address City/[facility]/ZIP Co de Phone Number [facility] Department [place] [address] * Lactate (02/02/2018 5:30 PM CDT) Lactate 1.7 0.7 - 2.0 mmol/L [facility] Blood specimen (specimen) 02/02/2018 5:30 PM CDT 02/02/2018 5:49 PM CDT Narrative [facility] - 02/02/2018 6:48 PM CDT us Jamal Patino MD LAB BLOOD ORDERABLES Anastasiya l Result Performing Organization Address City/[facility]/ZIP Co de Phone Number [facility] Department [place] [address] * POCT glucose (02/02/2018 4:33 PM CDT) Glucose, POC 178 70 - 199 mg/dL [facility] Blood specimen (specimen) 02/02/2018 4:33 PM CDT 02/02/2018 4:33 PM CDT Narrative [facility] - 02/02/2018 4:48 PM CDT us Jamal Patino MD LAB POCT ORDERABLES - DEV ICE Final Result [facility] [place] [address] * US RUQ (02/02/2018 3:43 PM CDT) Anatomical Region Laterality Modality Abdomen N/A Ultrasound 02/02/2018 4:04 PM CDT Impressions 02/02/2018 4:27 PM CDT 1. Sonographic evidence of hepatic steatosis and [...] the TIPS. Recommend continued attention on follow-up. Dictated by: David Cabrera M.D. Electronically signed by: Kole Escobar M.D. Narrative 02/02/2018 4:27 PM CDT EXAMINATION: 1. LIMITED ABDOMINAL SONOGRAM 2. LIVER DOPPLER - TIPS HISTORY: ??47-year-old man with nonalcoholic steatosis-cirrhosis status post transjugular intrahepatic portosystemic shunt catheter (TIPS) placement on 11/22/2015. COMPARISON: ??TIPS ultrasound dated 08/28/2017, 10/21/2016 FINDINGS: ?? LIMITED ABDOMEN SONOGRAM: Liver: The liver is normal in size. The echotexture is normal. ??The echogenicity is increased. There is surface nodularity. No focal solid lesions are visualized. ?? Gallbladder: The gallbladder is normal in size. There are no stones or sludge within the gallbladder. There is is no gallbladder wall thickening. Bile Duct: There is no intrahepatic bile duct dilatation. The common duct measures 4 and 2 in the proximal and mid segments, respectively. Right Kidney: There is no hydronephrosis in the visualized portions of the right kidney. Pancreas: The pancreas is obscured by overlying bowel gas. Inferior vena cava: The proximal IVC is normal. TIPS DOPPLER: Color Doppler and spectral analysis were used to evaluate the stent graft and hepatic vasculature. ?? Portal veins: Main portal vein velocity measures 48 cm/second. ??Flow is antegrade in both the right and left portal vein branches, away from the TIPS. ?? TIPS stent: Maximum velocity within the stent graft occurs in the proximal portion and measures 113 cm/sec (previously measured 183 cm/sec). ??Minimum velocity occurs within the ??mid portion of the stent and measures 109 cm/sec (previously measured 159 cm/sec).There is no evidence of stenosis. Draining hepatic vein: The draining hepatic vein has antegrade flow with a velocity of 59 cm/sec. Collaterals: There is no evidence of collaterals. Ascites: There is no ascites. ?? Procedure Note Kole Escobar MD - 02/02/2018 EXAMINATION: 1. LIMITED ABDOMINAL SONOGRAM 2. LIVER DOPPLER - TIPS HISTORY: 47-year-old man with nonalcoholic steatosis-cirrhosis status post transjugular intrahepatic portosystemic shunt catheter (TIPS) placement on 11/22/2015. COMPARISON: TIPS ultrasound dated 08/28/2017, 10/21/2016 FINDINGS: LIMITED ABDOMEN SONOGRAM: Liver: The liver is normal in size. The echotexture is normal. The echogenicity is increased. There is surface nodularity. No focal solid lesions are visualized. Gallbladder: The gallbladder is normal in size. There are no stones or sludge within the gallbladder. There is is no gallbladder wall thickening. Bile Duct: There is no intrahepatic bile duct dilatation. The common duct measures 4 and 2 in the proximal and mid segments, respectively. Right Kidney: There is no hydronephrosis in the visualized portions of the right kidney. Pancreas: The pancreas is obscured by overlying bowel gas. Inferior vena cava: The proximal IVC is normal. TIPS DOPPLER: Color Doppler and spectral analysis were used to evaluate the stent graft and hepatic vasculature. Portal veins: Main portal vein velocity measures 48 cm/second. Flow is antegrade in both the right and left portal vein branches, away from the TIPS. TIPS stent: Maximum velocity within the stent graft occurs in the proximal portion and measures 113 cm/sec (previously measured 183 cm/sec). Minimum velocity occurs within the mid portion of the stent and measures 109 cm/sec (previously measured 159 cm/sec).There is no evidence of stenosis. Draining hepatic vein: The draining hepatic vein has antegrade flow with a velocity of 59 cm/sec. Collaterals: There is no evidence of collaterals. Ascites: There is no ascites. IMPRESSION: 1. Sonographic evidence of hepatic steatosis and [...] the TIPS. Recommend continued attention on follow-up. Dictated by: David Cabrera M.D. Electronically signed by: Kole Escobar M.D. Jamal Patino MD IMG US PROCEDURES Final R esult * (ABNORMAL) Urinalysis, microscopic only (02/02/2018 12:59 PM CDT) WBC, ur 0-5 0 - 5 /HPF [facility] RBC, ur 0-5 0 - 5 /HPF [facility] Mucous, ur Present(A) [facility] Urine 02/02/2018 12:5 9 PM CDT 02/02/2018 1:36 PM CDT Narrative [facility] - 02/02/2018 1:49 PM CDT us Jamal Patino MD LAB URINE ORDERABLES Anastasiya l Result [facility] Department [place] [address] * (ABNORMAL) Urinalysis reflex to microscopic and culture Urine (02/02/2018 12:59 PM CDT) Color, ur Yellow Yellow [facility] Clarity, ur Clear Clear [facility] Specific gravity, ur 1.027(H) 1.010 - 1.025 [facility] pH, urine 5.0 [facility] Protein, ur ql 1+(A) Negative [facility] Glucose, ur ql 2+(A) Negative [facility] Ketones, ur Negative Negative [facility] Bilirubin, ur Negative Negative [facility] Blood, ur Negative Negative [facility] Urobilinogen, ur <2.0 <2.0 mg/dL [facility] Nitrite, ur Negative Negative [facility] Leukocyte esterase, ur Negative Negative [facility] Urine 02/02/2018 12:5 9 PM CDT 02/02/2018 1:36 PM CDT Narrative [facility] - 02/02/2018 1:47 PM CDT ?? Urine pH is affected by diet, medications, systemic acid-base disturbances, and renal tubular function. ??pH may affect urinary stone formation. ??For example, urine pH below 6.0 may help reduce the tendency for calcium phosphate stones and pH greater than 6.0 may reduce the tendency for uric acid stone formation. Source: [facility] [employer]. Last revised 05-14-2017 us Jamal Patino MD LAB MICROBIOLOGY - GENERA L ORDERABLES Final Result [facility] Department [place] [address] * (ABNORMAL) Differential, auto (02/02/2018 12:23 PM CDT) Neutrophil abs 5.2 1.7 - 6.5 K/cumm [facility] Imm gran abs 0.0 0.0 - 0.1 K/cumm [facility] Lymphocyte abs 0.5(L) 0.8 - 3.3 K/cumm [facility] Monocyte abs 0.4 0.2 - 0.8 K/cumm [facility] Eosinophil abs 0.0 0.0 - 0.5 K/cumm [facility] Basophil abs 0.0 0.0 - 0.1 K/cumm [facility] Neutrophil pct 84.5 % [facility] Comment: Interpretive Data Percent cell count reference ranges are not reported, since discordance with absolute values may lead to misinterpretation of CBC data. Current Interpretive Data was last revised on 2017. Imm gran pct 0.3 % [facility] Comment: Interpretive Data Percent cell count reference ranges are not reported, since discordance with absolute values may lead to misinterpretation of CBC data. Current Interpretive Data was last revised on 2017. Lymphocyte pct 7.6 % [facility] Comment: Interpretive Data Percent cell count reference ranges are not reported, since discordance with absolute values may lead to misinterpretation of CBC data. Current Interpretive Data was last revised on 2017. Monocyte pct 6.8 % [facility] Comment: Interpretive Data Percent cell count reference ranges are not reported, since discordance with absolute values may lead to misinterpretation of CBC data. Current Interpretive Data was last revised on 2017. Eosinophil pct 0.5 % [facility] Comment: Interpretive Data Percent cell count reference ranges are not reported, since discordance with absolute values may lead to misinterpretation of CBC data. Current Interpretive Data was last revised on 2017. Basophil pct 0.3 % [facility] Comment: Interpretive Data Percent cell count reference ranges are not reported, since discordance with absolute values may lead to misinterpretation of CBC data. Current Interpretive Data was last revised on 2017. Blood specimen (specimen) 02/02/2018 12:23 PM CDT 02/02/2018 12:40 PM CDT Narrative [facility] - 02/02/2018 12:52 PM CDT Jamal Patino MD LAB BLOOD ORDERABLES Anastasiya enciso Result [facility] [place] [address] * (ABNORMAL) Hemoglobin A1c (02/02/2018 12:23 PM CDT) Hgb A1C 8.4(H) 4.0 - 5.6 % [facility] Estimated Average Glucose 194 mg/dL [facility] Comment: The ADA recommends reporting an estimated Average Glucose (eAG) with all Hemoglobin A1c results using the equation derived from a study of 507 normal and diabetic adults. ??Minority populations were underrepresented and children were not included. ?? (Diabetes Care 31:9653-7274, 2008). ??The eAG is not equivalent to a fasting glucose. Blood specimen (specimen) 02/02/2018 12:23 PM CDT 02/02/2018 12:41 PM CDT Narrative [facility] - 02/02/2018 1:05 PM CDT Jamal Patino MD LAB BLOOD ORDERABLES Anastasiya l Result Performing Organization Address [facility] de Phone Number [facility] [place] [employer] [place] [address] * (ABNORMAL) aPTT (02/02/2018 12:23 PM CDT) aPTT 24.2(L) 25.0 - 37.0 sec [facility] Comment: Interpretive Data Therapeutic heparin range:60.0 - 94.0 sec based on correlation with therapeutic heparin activity range of 0.3 -0.7 Units/mL. Current interpretive data was last revised on 2011. Blood specimen (specimen) 02/02/2018 12:23 PM CDT 02/02/2018 12:36 PM CDT Narrative [facility] - 02/02/2018 1:11 PM CDT Jamal Patino MD LAB BLOOD ORDERABLES Anastasiya l Result Performing Organization Address [facility] de Phone Number [facility] [place] [address] * (ABNORMAL) Protime-INR (02/02/2018 12:23 PM CDT) PT 14.3(H) 8.5 - 13.0 sec [facility] INR 1.24(H) 0.80 - 1.21 [facility] Comment: Interpretive Data Inpatient therapeutic ranges* Atrial fibrillation ?2.0-3.0 INR Venous thrombo-embolism ?2.0-3.0 INR Bioprosthetic heart valve ?* Mechanical heart valve, bileaflet or tilting disk,aortic position ? 2.0-3.0 INR All other,or bileaflet or tilting disk, in mitral position ? 2.5-3.5 INR *See the pharmacy resource directory (PHRED) for an updated copy of the Tool Book at [email or web address] Current Interpretive Data was last revised 2011. Blood specimen (specimen) 02/02/2018 12:23 PM CDT 02/02/2018 12:36 PM CDT Narrative [facility] - 02/02/2018 1:11 PM CDT us Jamal Patino MD LAB BLOOD ORDERABLES Anastasiya l Result Performing Organization Address [facility]/ZIP Co de Phone Number [facility] Department [place] [address] * Type and screen (02/02/2018 12:23 PM CDT) ABO Rh A Positive [facility] Steve, indirect Negative [facility] Blood specimen (specimen) 02/02/2018 12:23 PM CDT 02/02/2018 12:43 PM CDT Narrative [facility] - 02/02/2018 1:42 PM CDT Has the patient had Daratumumab (Darzalex) in the past 6 months?->Unknown us Jamal Patino MD LAB BLOOD BANK TEST ORDER SELINA Final Result Performing Organization Address City/[facility]/ZIP Co de Phone Number [facility] [place] [address] * (ABNORMAL) CBC with auto differential (02/02/2018 12:23 PM CDT) WBC 6.2 3.8 - 9.9 K/cumm [facility] Hgb 12.9(L) 13.0 - 17.5 g/dL [facility] Hct 39.1 38.9 - 50.3 % [facility] Plt 105(L) 150 - 400 K/cumm [facility] MPV 11.7 9.1 - 12.3 fL [facility] RBC 4.77 4.30 - 5.80 M/cumm [facility] MCV 82.0 81.3 - 96.4 fL [facility] MCH 27.0(L) 27.1 - 33.3 pg [facility] MCHC 33.0 32.3 - 35.7 g/dL [facility] RDW CV 15.5(H) 11.1 - 14.9 % [facility] RDW SD 46.0 35.7 - 48.1 fL [facility] NRBC abs 0.00 0.00 - 0.01 K/cumm [facility] Blood specimen (specimen) 02/02/2018 12:23 PM CDT 02/02/2018 12:40 PM CDT Narrative [facility] - 02/02/2018 12:52 PM CDT us Jamal Patino MD LAB BLOOD ORDERABLES Anastasiya enciso Result [facility] [place] [address] * Phosphorus (02/02/2018 12:23 PM CDT) Phosphorus, pl 2.9 2.3 - 4.5 mg/dL [facility] Blood specimen (specimen) 02/02/2018 12:23 PM CDT 02/02/2018 12:38 PM CDT Narrative [facility] - 02/02/2018 1:04 PM CDT us Jamal Patino MD LAB BLOOD ORDERABLES Anastasiya l Result Performing Organization Address [facility] Co de Phone Number [facility] [place] [address] * Magnesium (02/02/2018 12:23 PM CDT) [facility] Magnesium 1.4 1.4 - 2.5 mg/dL [facility] Blood specimen (specimen) 02/02/2018 12:23 PM CDT 02/02/2018 12:38 PM CDT Narrative [facility] - 02/02/2018 1:04 PM CDT Jamal Patino MD LAB BLOOD ORDERABLES Anastasiya l Result Performing Organization Address [facility] Co de Phone Number [facility] [place] [address] * (ABNORMAL) Comprehensive metabolic panel (02/02/2018 12:23 PM CDT) [facility] Sodium 137 135 - 145 mmol/L [facility] Potassium, pl 5.0(H) 3.3 - 4.9 mmol/L [facility] Comment:Hemolyzed; (+++); po tassium value may be falsely elevated by as much as 0.6 - 1.0 mmol/L. Suggest redraw and reanalysis. Chloride 106 97 - 110 mmol/L [facility] CO2 23 22 - 32 mmol/L [facility] Anion gap 8 2 - 15 mmol/L [facility] BUN 15 8 - 25 mg/dL [facility] Creatinine 0.73(L) 0.80 - 1.30 mg/dL [facility] Glucose 255(H) 70 - 199 mg/dL [facility] Comment: Interpretive Data Fasting glucose >/= [...] interpretive data was last revised 2017. Calcium 8.7 8.5 - 10.3 mg/dL [facility] Bilirubin, total 1.3(H) 0.1 - 1.2 mg/dL [facility] Protein, pl 7.1 6.5 - 8.5 g/dL [facility] Albumin 3.8 3.5 - 5.0 g/dL [facility] Alk phos 71 40 - 130 Units/L [facility] ALT 83(H) 7 - 55 Units/L [facility] AST 105(H) 10 - 50 Units/L [facility] Comment:Hemolyzed; result ma y be falsely elevated. Blood specimen (specimen) 02/02/2018 12:23 PM CDT 02/02/2018 12:38 PM CDT Narrative [facility] - 02/02/2018 1:04 PM CDT us Jamal Patino MD LAB BLOOD ORDERABLES Anastasiya l Result Performing Organization Address City/[facility]/ZIP Co de Phone Number [facility] [place] [address] * (ABNORMAL) POCT glucose (02/02/2018 12:03 PM CDT) [facility] Signature Glucose, POC 231(H) 70 - 199 mg/dL [facility] Glucose comment 1 RN Notified [facility] Glucose comment 2 Doctor Notified [facility] Blood specimen (specimen) 02/02/2018 12:03 PM CDT 02/02/2018 12:03 PM CDT Narrative [facility] - 02/02/2018 12:08 PM CDT Jamal Patino MD LAB POCT ORDERABLES - DEV ICE Final Result [facility] [place] [address] documented in this encounter Visit Diagnoses Diagnosis Nausea vomiting and diarrhea- Primary 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) Diabetes mellitus, type 2 (HCC) Type II or unspecified type diabetes mellitus without mention of complication, not stated as uncontrolled documented in this encounter Administered Medications Inactive Administered Medications - up to 3 most recent administrations Medication Order MAR Action Action Date Dose Rate Site dextrose (D10W) 10% bolus 250 mL 250 mL, intravenous, at 1,000 mL/hr, Administer over 15 Minutes, Every 15 min PRN, blood glucose less than 70 mg/dL and unable to swallow/take PO glucose/juice, Starting on Thu02/02/18 at 1708, Indications: HypoglycemiaIndications:Hy poglycemia dextrose (D10W) 10% bolus 250 mL 250 mL, intravenous, at 62.5 mL/hr, Administer over 4 Hours, Every 4 hours PRN, when tube feedings are held or interrupted AND patient is receiving basal insulin (Lantus, Levemir, NPH), Starting on Thu02/02/18 at 1708, To cover glucose from tube feeds, infuse over 4 hours. NOTE: administer D10 250ml IV at TUBE FEEDING ADMINISTRATION RATE and notify MD promptly to re-evaluate patient's BG status and insulin therapy. Discontinue D10 infusion when tube feedings are reinitiated or per MDs instruction. Continuation of this D10W order beyond the initial 250ml requires ongoing MD approval and patient evaluation., Indications: HypoglycemiaIndications:Hy poglycemia dextrose (GLUTOSE) 40 % gel 15 g 15 g, oral, Every 15 min PRN, low blood sugar, blood glucose less than 70 mg/dL, Starting on Thu02/02/18 at 1708, If patient is alert and able to eat/drink, give 15 gram glucose or one juice (4 fluid ounces) NOT [employer] STATES GLUTOSE-15 CONTAINS GLUCOSE 40% W/W (50% W/V), Indications: HypoglycemiaIndications:Hy poglycemia dextrose 50% (concentrated solution) CONCENTRATED solution 25 g 25 g, intravenous, Every 15 min PRN, low blood sugar, blood glucose less than 50 mg/dL AND decreased level of consciousness, Starting on Thu02/02/18 at 1708, Give IV Push over 2 minutes., Indications: HypoglycemiaIndications:Hy poglycemia glucagon injection 1 mg 1 mg, intramuscular, Every 30 min PRN, low blood sugar, blood glucose less than 70 mg/dL and no IV access and unable to take PO glucose/juice, Starting on Thu02/02/18 at 1708, Follow glucagon treatment with glucose treatment or IV dextrose as appropriate based on clinical status., Indications: HypoglycemiaIndications:Hy poglycemia insulin glargine (LANTUS) injection 70 Units 70 Units, subcutaneous, Nightly, First dose (after last modification) on Thu02/02/18 at 2100, Do not mix with other insulins, Indications: Diabetes MellitusIndications:Diabet es Mellitus Given 02/02/2018 10:04 PM CDT 70 Units Right Upper Arm insulin lispro (HumaLOG) injection 1-4 Units 1-4 Units, subcutaneous, Nightly, First dose on Thu02/02/18 at 2100, Blood Sugar High Dose PM - PO patients 139 or less No insulin 140 - 175 1 unit 176 - 200 2 units 201 - 250 3 units 251 - 299 4 units Greater than 299 Call MD for hyperglycemia management instructions Do NOT hold for NPO status., Indications: Diabetes MellitusIndications:Diabet es Mellitus insulin lispro (HumaLOG) injection 1-4 Units 1-4 Units, subcutaneous, Every 24 hours, First dose on Thu02/03/18 at 0200, Blood Sugar High Dose 02:00 - PO patients 139 or less No insulin 140 - 175 1 unit 176 - 200 2 units 201 - 250 3 units 251 - 299 4 units Greater than 299 Call MD for hyperglycemia management instructions Do NOT hold for NPO status., Indications: Diabetes MellitusIndications:Diabet es Mellitus insulin lispro (HumaLOG) injection 1-7 Units 1-7 Units, subcutaneous, 3 times daily with meals, First dose on Thu02/02/18 at 1800, Blood Sugar High Dose meal time - PO patients 139 or less No insulin 140 - 175 2 unit 176 - 200 3 unit 201 - 250 5 units 251 - 299 7 units Greater than 299 Call MD for hyperglycemia management instructions Do NOT hold for NPO status., Indications: Diabetes MellitusIndications:Diabet es Mellitus Given 02/02/2018 6:08 PM CDT 3 Units Right Upper Arm insulin lispro (HumaLOG) injection 30 Units 30 Units, subcutaneous, 3 times daily with meals, First dose on Thu02/02/18 at 1800, If BG 100 mg/dl or more, give with meals/tube feeds . If BG less than 100 mg/dl, give after meals/tube feeds. Hold pre-meal insulin if NPO, unable to eat, or BG less than 70 mg/dl. Administer pre-meal doses when patient's food tray arrives in room or after the meal in patients with poor meal intake. If patient is not eating the majority of their meal, call MD for an adjustment in patient's insulin dose., Indications: Diabetes MellitusIndications:Diabet es Mellitus Given 02/02/2018 6:07 PM CDT 30 Units Right Upper Arm ondansetron (ZOFRAN) injection 4 mg 4 mg, intravenous, Every 6 hours PRN, nausea, vomiting, if not tolerating PO, Starting on Thu02/02/18 at 1153, Indications: Nausea and VomitingIndications:Nausea and Vomiting Given 02/02/2018 12:11 PM CDT 4 mg ondansetron ODT (ZOFRAN-ODT) disintegrating tablet 4 mg 4 mg, oral, Every 6 hours PRN, nausea, vomiting, Starting on Thu02/02/18 at 1153, Indications: Nausea and VomitingIndications:Nausea and Vomiting pantoprazole (PROTONIX) injection 40 mg 40 mg, intravenous, 2 times daily, First dose on Thu02/02/18 at 1415, Indications: GI BleedIndications:GI Bleed Given 02/02/2018 2:15 PM CDT [address] (PROTONIX) extended release tablet 40 mg 40 mg, oral, 2 times daily, First dose on Thu02/02/18 at 2100, Do not crush, chew, cut, dissolve, open or otherwise manipulate tablet/capsule., Indications: GERDIndications:GERD Given 02/02/2018 10:04 PM CDT 40 mg rifAXIMin (XIFAXAN) tablet 550 mg 550 mg, oral, 2 times daily, First dose on Thu02/02/18 at 1230, Indications: Hepatic EncephalopathyIndications: Hepatic Encephalopathy Given 02/02/2018 10:04 PM CDT 550 mg Given 02/02/2018 12:56 PM CDT 550 mg sodium chloride 0.9% flush 0.5-20 mL 0.5-20 mL, intra-catheter, Every 8 hours scheduled, First dose on Thu02/02/18 at 1400, Flush volume based on line type and size. , Indications: FlushingIndications:Flushing Given 02/02/2018 10:22 PM CDT 1 0 mL Given 02/02/2018 12:11 PM CDT 10 mL sodium chloride 0.9% infusion 100 mL/hr, intravenous, Continuous, Starting on Thu02/02/18 at 1230 New Bag 02/02/2018 10:22 PM CDT 100 mL/hr 100 mL/hr New Bag 02/02/2018 12:56 PM CDT 100 mL/hr 100 mL/hr documented in this encounter Discontinued Medications Medication Sig Discontinue Reason Start Date End Da te rifAXIMin (XIFAXAN) 200 mg tablet Take 550 mg by mouth 3 (three) times a day. 02/02/2018 documented as of this encounter Historical Medications * This list may reflect changes made after this encounter. insulin regular U-500 (HumuLIN R U-500) 500 unit/mL CONCENTRATED injectionIndicatio ns:Diabetes Mellitus with Severe Insulin Resistance Inject 150 Units under the skin 3 (three) times a day before meals. 05/14/2020 rifAXIMin (XIFAXAN) 550 mg tablet Take 550 mg by mouth. 05/09/2020 ALPRAZolam (XANAX) 0.5 mg tablet Take 0.5 mg by mouth as needed for anxiety. 05/09/2020 ondansetron (ZOFRAN) 4 mg tablet Take 4 mg by mouth every 8 (eight) hours as needed for nausea or vomiting. 05/09/2020 omeprazole (PriLOSEC) 20 mg capsule Take 20 mg by mouth daily. 05/09/2020 lactulose solution 10 gram/15mL 05/09/2020 rifAXIMin (XIFAXAN) 200 mg tablet Take 550 mg by mouth 3 (three) times a day. 02/02/2018 added in this encounter Active and Recently Administered Medications Times are shown in CDT. Scheduled Medication Order 02/01/2018 02/02/2018 02/03/2018 insulin glargine (LANTUS) injection 70 Units 70 Units, subcutaneous, Nightly, First dose (after last modification) on Thu02/02/18 at 2100, Do not mix with other insulins, Indications: Diabetes Mellitus 2203 (Given - Provider: Gallo Marrero, RN) insulin lispro (HumaLOG) injection 1-4 Units 1-4 Units, subcutaneous, Nightly, First dose on Thu02/02/18 at 2100, Blood Sugar High Dose PM - PO patients 139 or less No insulin 140 - 175 1 unit 176 - 200 2 units 201 - 250 3 units 251 - 299 4 units Greater than 299 Call MD for hyperglycemia management instructions Do NOT hold for NPO status., Indications: Diabetes Mellitus 2204 (Not Given - Provider: Sixto Marrero, BETHANY - Reason: Patient/family refused) insulin lispro (HumaLOG) injection 1-4 Units 1-4 Units, subcutaneous, Every 24 hours, First dose on Thu02/03/18 at 0200, Blood Sugar High Dose 02:00 - PO patients 139 or less No insulin 140 - 175 1 unit 176 - 200 2 units 201 - 250 3 units 251 - 299 4 units Greater than 299 Call MD for hyperglycemia management instructions Do NOT hold for NPO status., Indications: Diabetes Mellitus 0200 (Due) insulin lispro (HumaLOG) injection 1-7 Units 1-7 Units, subcutaneous, 3 times daily with meals, First dose on Thu02/02/18 at 1800, Blood Sugar High Dose meal time - PO patients 139 or less No insulin 140 - 175 2 unit 176 - 200 3 unit 201 - 250 5 units 251 - 299 7 units Greater than 299 Call MD for hyperglycemia management instructions Do NOT hold for NPO status., Indications: Diabetes Mellitus 1807 (Given - Provider: Elver Davis, BTEHANY) insulin lispro (HumaLOG) injection 30 Units 30 Units, subcutaneous, 3 times daily with meals, First dose on Thu02/02/18 at 1800, If BG 100 mg/dl or more, give with meals/tube feeds . If BG less than 100 mg/dl, give after meals/tube feeds. Hold pre-meal insulin if NPO, unable to eat, or BG less than 70 mg/dl. Administer pre-meal doses when patient's food tray arrives in room or after the meal in patients with poor meal intake. If patient is not eating the majority of their meal, call MD for an adjustment in patient's insulin dose., Indications: Diabetes Mellitus 1807 (Given - Provider: Elver Davis, BETHANY) pantoprazole (PROTONIX) injection 40 mg (CANCELED) 40 mg, intravenous, 2 times daily, First dose on Thu02/02/18 at 1415, Indications: GI Bleed 1415 (Given - Provider: Elver Davis, BETHANY) pantoprazole DR (PROTONIX) extended release tablet 40 mg 40 mg, oral, 2 times daily, First dose on Thu02/02/18 at 2100, Do not crush, chew, cut, dissolve, open or otherwise manipulate tablet/capsule., Indications: GERD 2204 (Given - Provider: Gallo Marrero, BETHANY) rifAXIMin (XIFAXAN) tablet 550 mg 550 mg, oral, 2 times daily, First dose on Thu02/02/18 at 1230, Indications: Hepatic Encephalopathy 1256 (Given - Provider: Elver Davis RN)2204 (Given - Provider: Sixto Marrero, BETHANY) sodium chloride 0.9% flush 0.5-20 mL 0.5-20 mL, intra-catheter, Every 8 hours scheduled, First dose on Thu02/02/18 at 1400, Flush volume based on line type and size. , Indications: Flushing 1211 (Given - Provider: Elver Davis RN)2222 (Given - Provider: Sixto Marrero, BETHANY) Continuous Medication Order 02/01/2018 02/02/2018 02/03/2018 sodium chloride 0.9% infusion 100 mL/hr, intravenous, Continuous, Starting on Thu02/02/18 at 1230 1256 (New Bag - Provider: Elver Davis RN)2222 (New Bag - Provider: Sixto Marrero, BETHANY) PRN Medication Order 02/01/2018 02/02/2018 02/03/2018 acetaminophen (TYLENOL) tablet 500 mg 500 mg, oral, Every 6 hours PRN, 1st line for pain, fever, fever greater than 38.3 C, Starting on Thu02/02/18 at 1153, Indications: Fever, Pain dextrose (D10W) 10% bolus 250 mL 250 mL, intravenous, at 1,000 mL/hr, Administer over 15 Minutes, Every 15 min PRN, blood glucose less than 70 mg/dL and unable to swallow/take PO glucose/juice, Starting on Thu02/02/18 at 1708, Indications: Hypoglycemia dextrose (D10W) 10% bolus 250 mL 250 mL, intravenous, at 62.5 mL/hr, Administer over 4 Hours, Every 4 hours PRN, when tube feedings are held or interrupted AND patient is receiving basal insulin (Lantus, Levemir, NPH), Starting on Thu02/02/18 at 1708, To cover glucose from tube feeds, infuse over 4 hours. NOTE: administer D10 250ml IV at TUBE FEEDING ADMINISTRATION RATE and notify MD promptly to re-evaluate patient's BG status and insulin therapy. Discontinue D10 infusion when tube feedings are reinitiated or per MDs instruction. Continuation of this D10W order beyond the initial 250ml requires ongoing MD approval and patient evaluation., Indications: Hypoglycemia dextrose (GLUTOSE) 40 % gel 15 g 15 g, oral, Every 15 min PRN, low blood sugar, blood glucose less than 70 mg/dL, Starting on Thu02/02/18 at 1708, If patient is alert and able to eat/drink, give 15 gram glucose or one juice (4 fluid ounces) NOT ORANGE JUICE MANAGER FINANCIAL PLANNING STATES GLUTOSE-15 CONTAINS GLUCOSE 40% W/W (50% W/V), Indications: Hypoglycemia dextrose 50% (concentrated solution) CONCENTRATED solution 25 g 25 g, intravenous, Every 15 min PRN, low blood sugar, blood glucose less than 50 mg/dL AND decreased level of consciousness, Starting on Thu02/02/18 at 1708, Give IV Push over 2 minutes., Indications: Hypoglycemia glucagon injection 1 mg 1 mg, intramuscular, Every 30 min PRN, low blood sugar, blood glucose less than 70 mg/dL and no IV access and unable to take PO glucose/juice, Starting on Thu02/02/18 at 1708, Follow glucagon treatment with glucose treatment or IV dextrose as appropriate based on clinical status., Indications: Hypoglycemia ondansetron (ZOFRAN) injection 4 mg(Linked Group 1) 4 mg, intravenous, Every 6 hours PRN, nausea, vomiting, if not tolerating PO, Starting on Thu02/02/18 at 1153, Indications: Nausea and Vomiting 1211 (Given - Provider: Elver Davis, BETHANY) ondansetron ODT (ZOFRAN-ODT) disintegrating tablet 4 mg(Linked Group 1) 4 mg, oral, Every 6 hours PRN, nausea, vomiting, Starting on Thu02/02/18 at 1153, Indications: Nausea and Vomiting 1211 (See Alternative - Provider: Elver Davis RN) sodium chloride 0.9% flush 0.5-20 mL 0.5-20 mL, intra-catheter, As needed, line care, Starting on Thu02/02/18 at 1152, Flush volume based on line type and size. Flush before and after each use. , Indications: Flushing Linked Groups Order Group 1: ondansetron ODT (ZOFRAN-ODT) disintegrating tablet 4 mgJump to med 4 mg, oral, Every 6 hours PRN, nausea, vomiting, Starting on Thu02/02/18 at 1153, Indications: Nausea and Vomiting Or ondansetron (ZOFRAN) injection 4 mgJump to med 4 mg, intravenous, Every 6 hours PRN, nausea, vomiting, if not tolerating PO, Starting on Thu02/02/18 at 1153, Indications: Nausea and Vomiting documented in this encounter Orders Medications Ordered That Ronnie ht Not Have Been Administered Count Last Ordered Date First Ordered Date acetaminophen (TYLENOL) tablet 500 mg 1 06/2017 dextrose (D10W) 10% bolus 250 mL 2 02/03/20 dextrose (GLUTOSE) 40 % gel 15 g 1 02/03/20 18 dextrose 50% (concentrated s olution) CONCENTRATED solution 25 g 1 02/02/2018 glucagon injection 1 mg 1 02/02/2018 insulin glargine (LANTUS) in jection 75 Units 1 02/02/2018 insulin lispro (HumaLOG) inj ection 1-4 Units 2 02/02/2018 ondansetron ODT (ZOFRAN-ODT) disintegrating tablet 4 mg 1 02/02/2018 sodium chloride 0.9% flush 0.5-20 mL 1 06/2017 Nursing Count Last Ordered Date First Orde red Date PLACE SEQUENTIAL COMPRESSION DEVICE 1 02/02 WEIGH PATIENT 1 02/02/2018 Consult Count Last Ordered Date First Orde red Date CONSULT TO ENDOCRINOLOGY DIABETES 1 018 Admission Count Last Ordered Date First Orde red Date ASSIGN PATIENT STATUS 1 02/02/2018 CORE MEASURES Count Last Ordered Date First Ord ered Date REASON FOR NO VTE PROPHYLAXI S - HOSPITAL ADMISSION - MEDICATIONS 1 02/02/2018 documented in this encounter Care Teams Database Marketing Manager Relationship Specialty Start Date End Date Kris Soto MD [address] [place] [address] PCP - General 12/08/16 10/26/18 documented as of this encounter
--- OUTSIDE RECORDS SUMMARY | 2024-04-19 23:09 | XMS_ITS | Encounter Summary ---
Author Organization [facility] Address [address] [place] [address] Phone Care Team Providers Care Bullet Maker Name Role Phone Kris Soto MD Primary Care Provide r Encounter Details Date Type Department Care Team (Late st Contact Info) Description 10/07/2017 Orders Only [facility] Scanning, Provider Social History Tobacco Use Types Packs/Day Years Used Date Smoking Tobacco: Former Sex and Gender Information Value Date Recorded Sex Assigned at Not on file Legal Sex Male 2:52 PM [employer] Gender Identity Male 10/29/2020 12:37 PM CDT Sexual Orientation Straight 10/29/2020 12 :37 PM CDT documented as of this encounter Plan of Treatment Not on file documented as of this encounter Procedures Procedure Name Priority Date/Time Associated Diagnosis Comments SCAN - RADIOLOGY/IMAGING 10/07/2017 documented in this encounter Results * SCAN - RADIOLOGY/IMAGING (10/07/2017) Anatomical Region Laterality Modality Other us Provider Scanning Final Result documented in this encounter Visit Diagnoses Not on filedocumented in this encounter Care Teams Bullet Maker Relationship Specialty Start Date End Date Kris Soto MD [address] [place], [place] [id number] PCP - General 12/08/16 10/26/18 documented as of this encounter
--- OUTSIDE RECORDS SUMMARY | 2024-04-19 23:09 | XMS_ITS | Encounter Summary ---
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) Discharge Disposition: Discharge to a critical access hospital Social History Tobacco Use Types Packs/Day Years Used Date Smoking Tobacco: Former Smokeless Tobacco: Never Alcohol Use Standard Drinks/Week Comments No 0 (1 standard drink = 0.6 oz pur e alcohol) Sex and Gender Information Value Date Recorded Sex Assigned at Not on file 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 Gender Identity Male 10/29/2020 12:37 PM CDT Sexual Orientation Straight 10/29/2020 12 :37 PM CDT documented as of this encounter Last Filed Vital Signs Vital Sign Reading Time Taken Comments Blood Pressure 157/81 10/11/2017 3:05 AM CDT Pulse 96 10/11/2017 3:05 AM CDT Temperature 36.9 ??C (98.4 ??F) 10/11/2017 3:05 AM CD T Respiratory Rate 16 10/11/2017 3:05 AM CDT Oxygen Saturation 94% 10/11/2017 3:05 AM CDT Inhaled Oxygen Concentration - - Weight 122.5 kg (270 lb) 10/11/2017 12:23 AM CDT Height 172.7 cm (5' 8 ) 10/11/2017 12:23 AM CDT Body Mass Index 41.05 10/11/2017 12:23 AM CDT documented in this encounter Medications at Time of Discharge lactulose solution 10 gram/15mL TAKE 30MLS BY MOUTH FOUR TIMES A DAY NEEDED 09/10/2015 ALPRAZolam (XANAX) 0.5 mg tablet TAKE 1 TABLET TWICE DAILY NEEDED. 09/10/2015 2 ergocalciferol (VITAMIN D) 50,000 unit capsule once a week. 07/07/2017 1 hepatitis A and B ([place], PF,) [address] unit -20 mcg/mL suspensionIndica tions:Hepatitis B Prevention,Viral [...] Departure Means Destination Comment s Discharge to a critical access hospital Other pt alert andm oriented table and in no apparent distress. pt verbalizes understanding of admission instructions. pt ambulated to lobby without difficutly accompanied by significant other. documented in this encounter ED Notes * Cynthia Rodriguez MD - 10/11/2017 1:56 AM CDT HPI Patient is a 47 y/o M with hx BLAND cirrhosis, esophageal varices s/p banding and TIPS, hepatic encephalopathy, IDDM, MDD here with R sided pain. Pain is sharp, in RUQ, worse with movement, not resolved at rest. Pt has experienced this pain previously, was admitted to [facility] in August with nl w/u and nocause identified, dx with possible muscle strain. Pt has been to OSH ED x 2 in the past week for same. Pt has seen pain management for thsi issue, was given oxycodone 5mg x 28 tabs, has been out x 1 week. No LOC, f/c, CP, SOB, dysuria, hematuria, melena, hematochezia. Some lactulose and rifaximin non compliance, only has 1-2 BM/day. + NBNB emesis a few days ago. PMH/Meds/Allergies/FH/SH Reviewed Review of Systems: Review of systems per HPI and otherwise all other systems are negative unless otherwise documented Constitutional: negative for chills, fatigue and fevers Eyes: negative for eye pain, irritation and visual disturbance Ears, nose, mouth, throat, and face: negative for hoarseness, nasal congestion and sore throat Respiratory: negative for cough, dyspnea on exertion and pleurisy/chest pain Cardiovascular: negative for chest pain, dyspnea and palpitations Gastrointestinal: + for abdominal pain, nausea and vomiting Genitourinary: negative for dysuria, frequency and hematuria Hematologic/lymphatic: negative for bleeding, easy bruising and lymphadenopathy Musculoskeletal: negative for back pain, muscle weakness and neck pain Neurological: negative for dizziness, headaches and weakness Exam GEN: A&O x3, follows commands, uncomfortable, non toxic. HEENT: EOMI, atramatuic, MMM CV: RRR, no m/r/g. Resp: CTAB, no r/r/w Abd: soft, non distended, + RUQ ttp with light palpation, no peritoneal signs, no ascites fluid wave noted, no tenderness in other quadrants, no overlying skin changes. Ext: no edema, no calf tenderness Skin: warm, dry, no rash Neuro: A&O x3, MAEW, no sensory deficit A/P: mod prob: abdominal wall muscle strain, atypical PNA, liver capsular strain, biliary colic, drug seeking behavior. Low suspicion: acute cholecystitis, cholangitis, LIZETT, metabolic derangement, SBP, perforation, other peritonitis. Will check labs, PO oxy/diazepam now, avoid IV narcotics, d/w [facility] liver team when w/u complete. Will also check CXR to eval for PNA or pleural effusions. Cynthia Rodriguez MD 10/11/17 0201 * Adis Shrestha, BETHANY - 10/11/2017 12:17 AM CDT Patient to ED for complaint of right side abdominal pain. Reports history of BLAND and gallbladder issues. Patient states he has been seen in multiple ERs and in pain management, was advised by his liver specialist to come to ED documented in this encounter Plan of Treatment Scheduled Orders Name Type Priority Associated Diagnoses Orde r Schedule Urinalysis reflex to microscopic Urine Microbiology Routine Once for 1 Occurrences starting 10/11/2017 until 10/11/2017 documented as of this encounter Procedures Procedure Name Priority Date/Time Associated Diagnosis Comments XR CHEST PA LATERAL 2 VIEWS ED 10/11/2017 2:30 AM CDT EGFR STAT 10/11/2017 1:34 AM CDT DIFFERENTIAL AUTO STAT 10/11/2017 1:3 4 AM CDT CBC WITH AUTO DIFFERENTIAL STAT 10/11/2017 1:34 AM CDT MANUAL DIFFERENTIAL STAT 10/11/2017 1 :34 AM CDT LIPASE STAT 10/11/2017 1:34 AM CDT COMPREHENSIVE METABOLIC PANEL STAT 10/11/2017 1:34 AM CDT URINALYSIS AND REFLEX TO MICROSCOPIC AND CULTURE STAT 10/11/2017 1:08 AM CDT documented in this encounter Results * XR Chest Pa Lateral 2 Views (10/11/2017 2:30 AM CDT) Anatomical Region Laterality Modality Body, Chest N/A Computed Radiogr aphy 10/11/2017 8:10 AM CDT Impressions 10/11/2017 8:10 AM CDT Comparison to ribs and PA chest examination 08/28/2017 and 11/23/2015. There is unchanged streaky opacification at the left lung base likely related atelectasis or scarring. ??There is no confluent airspace opacity. ??There is no pleural effusion or pneumothorax. ??The heart size and mediastinal contours are unchanged. ??A TIPS stent is present. ??There is eventration of the left hemidiaphragm anteriorly. Electronically signed by: Braydon Nieves M.D. Narrative 10/11/2017 8:10 AM CDT EXAMINATION: 2 view chest radiograph Procedure Note Braydon Nieves MD - 10/11/2017 EXAMINATION: 2 view chest radiograph IMPRESSION: Comparison to ribs and PA chest examination 08/28/2017 and 11/23/2015. There is unchanged streaky opacification at the left lung base likely related atelectasis or scarring. There is no confluent airspace opacity. There is no pleural effusion or pneumothorax. The heart size and mediastinal contours are unchanged. A TIPS stent is present. There is eventration of the left hemidiaphragm anteriorly. Electronically signed by: Braydon Nieves M.D. Cynthia Rodriguez MD IMG XR PROCEDURES Final R esult * (ABNORMAL) Manual Differential (10/11/2017 1:34 AM CDT) Differential Auto MOHINDER WARD RBC morphology Consistent with RBC Indicies MOHINDER WARD Platelet estimate Decreased(A) MOHINDER WARD Blood specimen (specimen) 10/11/2017 1:34 AM CDT 10/11/2017 1:51 AM CDT Narrative MOHINDER WARD - 10/11/2017 4:02 AM CDT Cynthia Rodriguez MD LAB BLOOD ORDERABLES Anastasiya l Result Performing Organization Address [facility] Co de Phone Number MOHINDER LITTLECH [address] [employer] [place] [address] * eGFR (10/11/2017 1:34 AM CDT) eGFR >60 mL/min/1.7 3 m2 MOHINDER LITTLE Comment: Interpretive Data Reference Interval Normal ?>/= 90 mL/min/1.73m2 Mildly decreased* ? 60 - 89 mL/min/1.73m2 Mildly to moderately decreased ?45 - 59 mL/min/1.73m2 Moderately to severely decreased ??30 - 44 mL/min/1.73m2 Severely decreased ?15 - 29 mL/min/1.73m2 Kidney Failure ?< 15 ??mL/min/1.73m2 *Relative to young adult level If -Samoan multiply value by 1.16. Estimated glomerular filtration rate is determined by [...] 70. Current interpretive data was last reviewed 2015. Blood specimen (specimen) 10/11/2017 1:34 AM CDT 10/11/2017 1:51 AM CDT Narrative PAMELAPAULA MICHELLucCH - 10/11/2017 2:17 AM CDT Cynthia Rodriguez MD LAB BLOOD ORDERABLES Anastasiya l Result Performing Organization Address [facility] Co de Phone Number MOHINDER LITTLECH [phone] [place] [address] * (ABNORMAL) Differential, auto (10/11/2017 1:34 AM CDT) Neutrophil abs 2.7 1.7 - 6.5 K/cumm [facility] Imm gran abs 0.0 0.0 - 0.1 K/cumm [facility] Lymphocyte abs 0.6(L) 0.8 - 3.3 K/cumm [facility] Monocyte abs 0.3 0.2 - 0.8 K/cumm [facility] Eosinophil abs 0.1 0.0 - 0.5 K/cumm [facility] Basophil abs 0.0 0.0 - 0.1 K/cumm [facility] Neutrophil pct 72.4 % [facility] Comment: Interpretive Data Percent cell count reference ranges are not reported, since discordance with absolute values may lead to misinterpretation of CBC data. Current Interpretive Data was last revised on 2017. Imm gran pct 0.3 % [facility] Comment: Interpretive Data Percent cell count reference ranges are not reported, since discordance with absolute values may lead to misinterpretation of CBC data. Current Interpretive Data was last revised on 2017. Lymphocyte pct 15.7 % [facility] Comment: Interpretive Data Percent cell count reference ranges are not reported, since discordance with absolute values may lead to misinterpretation of CBC data. Current Interpretive Data was last revised on 2017. Monocyte pct 8.9 % [facility] Comment: Interpretive Data Percent cell count reference ranges are not reported, since discordance with absolute values may lead to misinterpretation of CBC data. Current Interpretive Data was last revised on 2017. Eosinophil pct 2.2 % [facility] Comment: Interpretive Data Percent cell count reference ranges are not reported, since discordance with absolute values may lead to misinterpretation of CBC data. Current Interpretive Data was last revised on 2017. Basophil pct 0.5 % [facility] Comment: Interpretive Data Percent cell count reference ranges are not reported, since discordance with absolute values may lead to misinterpretation of CBC data. Current Interpretive Data was last revised on 2017. Blood specimen (specimen) 10/11/2017 1:34 AM CDT 10/11/2017 1:51 AM CDT Narrative MOHINDER MICHELWCH - 10/11/2017 2:32 AM CDT Cynthia Rodriguez MD LAB BLOOD ORDERABLES Anastasiya l Result Performing Organization Address City/[facility]/ZIP Co de Phone Number [facility] [address] [facility] Department [place] [address] * (ABNORMAL) CBC with auto differential (10/11/2017 1:34 AM CDT) Pathologist [facility] WBC 3.7(L) 3.8 - 9.9 K/cumm [facility] RBC 4.75 4.30 - 5.80 M/cumm [facility] Hgb 13.3 13.0 - 17.5 g/dL [facility] Hct 39.5 38.9 - 50.3 % [facility] MCV 83.2 81.3 - 96.4 fL [facility] MCH 28.0 27.1 - 33.3 pg [facility] MCHC 33.7 32.3 - 35.7 g/dL [facility] RDW CV 14.7 11.1 - 14.9 % [facility] RDW SD 44.7 35.7 - 48.1 fL [facility] Plt 74(L) 150 - 400 K/cumm [facility] MPV 10.5 9.1 - 12.3 fL [facility] NRBC abs 0.00 0.00 - 0.01 K/cumm [facility] Blood specimen (specimen) 10/11/2017 1:34 AM CDT 10/11/2017 1:51 AM CDT Narrative MOHINDER MICHELWCH - 10/11/2017 4:02 AM CDT Cynthia Rodriguez MD LAB BLOOD ORDERABLES Edit ed Result - Final Performing Organization Address [facility]/ZIP Co de Phone Number MOHINDER LITTLE [address] [employer] [place] [address] * Lipase (10/11/2017 1:34 AM CDT) Lipase 36 10 - 99 Units/L [facility] Blood specimen (specimen) 10/11/2017 1:34 AM CDT 10/11/2017 1:51 AM CDT Narrative [facility] - 10/11/2017 2:17 AM CDT us Cynthia Rodriguez MD LAB BLOOD ORDERABLES Anastasiya l Result M[facility]INDER [facility] [place] [address] [facility] Department [place] [address] * (ABNORMAL) Comprehensive metabolic panel (10/11/2017 1:34 AM CDT) Pathologist [facility] Sodium 135 135 - 145 mmol/L [facility] Potassium, pl 4.3 3.3 - 4.9 mmol/L [facility] CO2 26 22 - 32 mmol/L [facility] BUN 10 8 - 25 mg/dL [facility] Glucose 395(H) 70 - 199 mg/dL [facility] Comment: Critical result called to and read back by Dr. Cynthia Vu ??(e.r.) on 10/11/2017 02:17:15 CDT to [email or web address]. Interpretive Data Fasting glucose >/= 126 mg/dl [...] 2017. Creatinine 0.70(L) 0.80 - 1.30 mg/dL [facility] Calcium 9.5 8.5 - 10.3 mg/dL [facility] Chloride 97 97 - 110 mmol/L [facility] Albumin 3.6 3.5 - 5.0 g/dL [facility] AST 44 10 - 50 Units/L [facility] ALT 50 7 - 55 Units/L [facility] Alk phos 82 40 - 130 Units/L [facility] Bilirubin, total 1.1 0.1 - 1.2 mg/dL [facility] Protein, pl 6.7 6.5 - 8.5 g/dL [facility] Anion gap 12 2 - 15 mmol/L [facility] Blood specimen (specimen) 10/11/2017 1:34 AM CDT 10/11/2017 1:51 AM CDT Narrative [facility] - 10/11/2017 2:17 AM CDT Cynthia Rodriguez MD LAB BLOOD ORDERABLES Anastasiya l Result [facility] [address] [facility] [place] [address] * (ABNORMAL) Urinalysis reflex to microscopic and culture Urine, clean voided (10/11/2017 1:08 AM CDT) Color, ur Yellow Yellow [facility] Clarity, ur Clear Clear [facility] Specific gravity, ur 1.010 1.010 - 1.025 [facility] pH, urine 6.0 [facility] Protein, ur ql Negative Negative [facility] Glucose, ur ql 3+(A) Negative [facility] Ketones, ur Negative Negative [facility] Bilirubin, ur Negative Negative [facility] Blood, ur Negative Negative [facility] Urobilinogen, ur 0.2 <2.0 mg/dL [facility] Nitrite, ur Negative Negative [facility] Leukocyte esterase, ur Negative Negative [facility] Urine, clean voided 10/11/2017 1:08 AM CDT 10/11/2017 2:27 AM CDT Narrative M[facility]ER [facility] - 10/11/2017 2:30 AM CDT ?? Urine pH is affected by diet, medications, systemic acid-base disturbances, and renal tubular function. ??pH may affect urinary stone formation. ??For example, urine pH below 6.0 may help reduce the tendency for calcium phosphate stones and pH greater than 6.0 may reduce the tendency for uric acid stone formation. Source: [employer]. Last revised 05-14-2017 us Cynthia Rodriguez MD LAB MICROBIOLOGY - GENERA L ORDERABLES Final Result MOHINDER MICHELWCH [address] 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) documented in this encounter Administered Medications Inactive Administered Medications - up to 3 most recent administrations Medication Order MAR Action Action Date Dose Rate Site diazePAM (VALIUM) tablet 5 mg 5 mg, oral, Once, On 10/11/17 at 0128, For 1 dose Given 10/11/2017 1:48 AM CDT 5 mg insulin regular (HumuLIN R, NovoLIN R) injection 6 Units 6 Units, subcutaneous, Once, On 10/11/17 at 0230, For 1 dose Given 10/11/2017 2:40 AM CDT 6 Units Right Upper Arm oxyCODONE (ROXICODONE) tablet 5 mg 5 mg, oral, Once, On 10/11/17 at 0128, For 1 dose, Indications: PainIndications:Pain Given 10/11/2017 1:47 AM CDT 5 mg prochlorperazine (COMPAZINE) injection 10 mg 10 mg, intravenous, Once, On 10/11/17 at 0219, For 1 dose Given 10/11/2017 2:40 AM CDT 10 mg Right Antecubital sodium chloride 0.9% bolus 500 mL 500 mL, intravenous, Once, On 10/11/17 at 0128, For 1 dose New Bag 10/11/2017 2:15 AM CDT 500 mL documented in this encounter Active and Recently Administered Medications Times are shown in CDT. Scheduled Medication Order 10/09/2017 10/10/2017 10/11/2017 diazePAM (VALIUM) tablet 5 mg (COMPLETED) 5 mg, oral, Once, On 10/11/17 at 0128, For 1 dose 0148 (Given - Provid er: Ric Stokes RN) insulin regular (HumuLIN R, NovoLIN R) injection 6 Units (COMPLETED) 6 Units, subcutaneous, Once, On 10/11/17 at 0230, For 1 dose 0240 (Given - Provid er: Ric Stokes RN) oxyCODONE (ROXICODONE) tablet 5 mg (COMPLETED) 5 mg, oral, Once, On 10/11/17 at 0128, For 1 dose, Indications: Pain 0147 (Given - Provid er: Ric Stokes RN) prochlorperazine (COMPAZINE) injection 10 mg (COMPLETED) 10 mg, intravenous, Once, On 10/11/17 at 0219, For 1 dose 0240 (Given - Provid er: Ric Stokes RN) sodium chloride 0.9% bolus 500 mL (COMPLETED) 500 mL, intravenous, Once, On 10/11/17 at 0128, For 1 dose 0215 (New Bag - Prov ider: Ric Stokes RN)0315 (Stopped - Provider: Ric Stokes RN) documented in this encounter Care Teams Consumer Loan Specialist Relationship Specialty Start Date End Date Kris Soto MD [address] [place] [address] PCP - General 12/08/16 10/26/18 documented as of this encounter
--- OUTSIDE RECORDS SUMMARY | 2024-04-19 23:09 | XMS_ITS | Encounter Summary ---
Author Organization [facility] Healthcare Address [address] [place] [address] Care Team Providers Care Support Engineer Name Role Phone Unavailable Primary Care Provider Unavailabl e Encounter Details Date Type Department Care Team (Latest Contact Info) Description 08/04/2016 11:32 AM CDT - 08/04/2016 11:59 PM CDT Hospital Encounter [facility] OP INTERIM [phone] Kathryn Ellis MD [address] [facility] [address] [place] [phone] Discharge Disposition: Discharge to home or self care Social History Tobacco Use Types Packs/Day Years Used Date Smoking Tobacco: Never Assessed Sex and Gender Information Value Date Recorded Sex Assigned at Not on file 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 Gender Identity Male 10/29/2020 12:37 PM CDT [...] Procedure Name Priority Date/Time Associated Diagnosis Comments APTT Routine Gen Lab 08/04/2016 11:52 AM CDT PROTIME-INR Routine Gen Lab 08/04/2016 11:52 AM CDT DIFFERENTIAL AUTO Routine Gen Lab 08/04/2016 11: 44 AM CDT CBC WITH AUTO DIFFERENTIAL Routine Gen Lab 08/04/2016 11:44 AM CDT [id number], TUMOR MARKER Routine Gen Lab 08/04/2016 11:44 AM CDT COMPREHENSIVE METABOLIC PANEL Routine Gen Lab 08/04/2016 11:44 AM CDT documented in this encounter Results * aPTT (08/04/2016 11:52 AM CDT) aPTT 30.0 25.0 - 37.0 sec MOHINDER [facility] Comment: Interpretive Data Therapeutic heparin range:60.0 - 94.0 sec based on correlation with therapeutic heparin activity range of 0.3 -0.7 Units/mL. Current interpretive data was last revised on 2011. Blood specimen (specimen) 08/04/2016 11:52 AM CDT 08/04/2016 12:37 PM CDT Kathryn Ellis MD LAB BLOOD ORDERABLES Fi nal Result Performing Organization Address City/[facility]/ZIP Co de Phone Number [facility] Department [place] [address] * Protime-INR (08/04/2016 11:52 AM CDT) Pathologist [facility] PT 12.6 9.2 - 14.0 sec [facility] INR 1.10 0.81 - 1.22 [facility] Comment: Interpretive Data Inpatient therapeutic ranges* Atrial fibrillation ?2.0-3.0 INR Venous thrombo-embolism ?2.0-3.0 INR Bioprosthetic heart valve ?* Mechanical heart valve, bileaflet or tilting disk,aortic position ? 2.0-3.0 INR All other,or bileaflet or tilting disk, in mitral position ? 2.5-3.5 INR *See the pharmacy resource directory (PHRED) for an updated copy of the Tool Book at [email or web address] Current Interpretive Data was last revised 2011. Blood specimen (specimen) 08/04/2016 11:52 AM CDT 08/04/2016 12:37 PM CDT us Kathryn Ellis MD LAB BLOOD ORDERABLES Fi nal Result Performing Organization Address [facility] Co de Phone Number [facility] Department [place] [address] * [id number], Tumor Marker (08/04/2016 11:44 AM CDT) [facility] alpha Fetoprotein 2.8 0.0 - 8.3 ng/mL [facility] Blood specimen (specimen) 08/04/2016 11:44 AM CDT 08/04/2016 12:54 PM CDT Kathryn Ellis MD LAB BLOOD ORDERABLES Fi nal Result [facility] Department [place] [address] * (ABNORMAL) Comprehensive metabolic panel (08/04/2016 11:44 AM CDT) Pathologist [facility] Sodium 139 135 - 145 mmol/L [facility] Potassium, pl 3.7 3.3 - 4.9 mmol/L [facility] CO2 26 22 - 32 mmol/L [facility] BUN 12 8 - 25 mg/dL [facility] Glucose 175 70 - 199 mg/dL [facility] Creatinine 0.74(L) 0.80 - 1.30 mg/dL [facility] Calcium 9.2 8.5 - 10.3 mg/dL [facility] Chloride 103 97 - 110 mmol/L [facility] Comment:fixed result mapping Albumin 4.0 3.5 - 5.0 g/dL [facility] AST 43 10 - 50 Units/L [facility] ALT 42 7 - 55 Units/L [facility] Alk phos 91 40 - 130 Units/L [facility] Bilirubin, total 1.4(H) 0.1 - 1.2 mg/dL [facility] Protein, pl 7.4 6.5 - 8.5 g/dL [facility] Anion gap 10 2 - 15 mmol/L [facility] Blood specimen (specimen) 08/04/2016 11:44 AM CDT 08/04/2016 12:54 PM CDT Kathryn Ellis MD LAB BLOOD ORDERABLES Fi nal Result [facility] Department [place] [address] * Differential, auto (08/04/2016 11:44 AM CDT) Pathologist [facility] Neutrophil pct 63.6 % [facility] Imm gran pct 0.7 % [facility] Lymphocyte pct 21.1 % [facility] Monocyte pct 11.3 % [facility] Eosinophil pct 2.4 % [facility] Basophil pct 0.9 % [facility] Neutrophil abs 2.93 1.70 - 6.50 K/cumm [facility] Imm gran abs 0.03 0.00 - 0.10 K/cumm [facility] Lymphocyte abs 0.97 0.80 - 3.30 K/cumm [facility] Monocyte abs 0.52 0.20 - 0.80 K/cumm [facility] Eosinophil abs 0.11 0.00 - 0.50 K/cumm [facility] Basophil abs 0.04 0.00 - 0.10 K/cumm [facility] Blood specimen (specimen) 08/04/2016 11:44 AM CDT 08/04/2016 12:55 PM CDT us Kathryn Ellis MD LAB BLOOD ORDERABLES Fi nal Result [facility] Department [place] [address] * (ABNORMAL) CBC with auto differential (08/04/2016 11:44 AM CDT) [facility] WBC 4.60 3.80 - 9.90 K/cumm [facility] RBC 4.98 4.30 - 5.80 M/cumm [facility] Hgb 14.1 13.0 - 17.5 g/dL [facility] Hct 40.2 38.9 - 50.3 % [facility] MCV 80.7(L) 81.3 - 96.4 fL [facility] MCH 28.3 27.1 - 33.3 pg [facility] MCHC 35.1 32.3 - 35.7 g/dL [facility] RDW CV 15.7(H) 11.1 - 14.9 % [facility] RDW SD 44.6 35.7 - 48.1 fL [facility] Plt 96(L) 150 - 400 K/cumm [facility] MPV 10.3 9.1 - 12.3 fL [facility] NRBC 0.0 0.0 - 0.2 % [facility] NRBC abs 0.00 0.00 - 0.01 K/cumm [facility] Blood specimen (specimen) 08/04/2016 11:44 AM CDT 08/04/2016 12:55 PM CDT us Kathryn Ellis MD LAB BLOOD ORDERABLES Fi nal Result [facility] Department [place] [address] documented in this encounter Visit Diagnoses Not on filedocumented in this encounter
--- OUTSIDE RECORDS SUMMARY | 2024-04-19 23:09 | XMS_ITS | Encounter Summary ---
Author Organization [facility] Healthcare Address [address] [place] [address] Care Team Providers Care Magnetic Tape Typewriter Operator Name Role Phone No, Physician Primary Care Provider Encounter Details Date Type Department Care Team (Late st Contact Info) Description 10/11/2016 6:29 AM CDT - 10/11/2016 1:24 PM CDT Emergency [facility] Emergency Department [address] [place] [phone] Unknown, Notinfile Discharge Disposition: Discharge to home or self care Social History Tobacco Use Types Packs/Day Years Used Date Smoking Tobacco: Never Assessed Sex and Gender Information Value Date Recorded Sex Assigned at Not on file Legal Sex 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:52 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 Gender Identity Male 10/29/2020 12:37 PM [...] Name Priority Date/Time Associated Diagnosis Comments GLUCOSE POC Routine Gen Lab 10/11/2016 12:20 PM CDT GLUCOSE POC Routine Gen Lab 10/11/2016 11:15 AM CDT DIFFERENTIAL AUTO STAT 10/11/2016 8:5 0 AM CDT CBC WITH AUTO DIFFERENTIAL STAT 10/11/2016 8:50 AM CDT HEPATIC FUNCTION PANEL STAT 10/11/2016 8:50 AM CDT BASIC METABOLIC PANEL STAT 10/11/2016 8:50 AM CDT POCT BETA-HYDROXYBUTYRATE WHOLE BLOOD Routine Gen Lab 10/11/2016 6:45 AM CDT GLUCOSE POC Routine Gen Lab 10/11/2016 6:40 AM CDT documented in this encounter Results * Glucose POC (10/11/2016 12:20 PM CDT) Glucose, POC 137 70 - 199 mg/dL [facility] Blood specimen (specimen) 10/11/2016 12:20 PM CDT 10/11/2016 12:20 PM CDT us Notinfile Unknown POINT OF CARE TEST ORDERABLES Final Result [facility] [place] [address] * Glucose POC (10/11/2016 11:15 AM CDT) Pathologist [facility] Glucose, POC 168 70 - 199 mg/dL [facility] Blood specimen (specimen) 10/11/2016 11:15 AM CDT 10/11/2016 11:15 AM CDT us Notinfile Unknown POINT OF CARE TEST ORDERABLES Final Result Performing Organization Address City/[facility]/[place] [address] * (ABNORMAL) Hepatic function panel (10/11/2016 8:50 AM CDT) [facility] AST 65(H) 10 - 50 Units/L [facility] Comment:Hemolyzed; result ma y be falsely elevated. ALT 65(H) 7 - 55 Units/L [facility] Alk phos 84 40 - 130 Units/L [facility] Bilirubin, total 1.4(H) 0.1 - 1.2 mg/dL [facility] Bilirubin, direct 0.2 0.1 - 0.3 mg/dL [facility] Protein, pl 7.1 6.5 - 8.5 g/dL [facility] Albumin 3.7 3.5 - 5.0 g/dL [facility] Blood specimen (specimen) 10/11/2016 8:50 AM CDT 10/11/2016 9:09 AM CDT us Sujatha Gamez MD LAB BLOOD [place] [address] * (ABNORMAL) Basic metabolic panel (10/11/2016 8:50 AM CDT) [facility] Sodium 140 135 - 145 mmol/L [facility] Potassium, pl 4.4 3.3 - 4.9 mmol/L [facility] Comment:Hemolyzed; (++); pot assium value may be falsely elevated by as much as 0.3 - 0.5 mmol/L. Suggest redraw and reanalysis. Chloride 105 97 - 110 mmol/L [facility] CO2 25 22 - 32 mmol/L [facility] BUN 13 8 - 25 mg/dL [facility] Glucose 280(H) 70 - 199 mg/dL [facility] Creatinine 0.78(L) 0.80 - 1.30 mg/dL [facility] Calcium 9.5 8.5 - 10.3 mg/dL [facility] Anion gap 10 2 - 15 mmol/L [facility] Blood specimen (specimen) 10/11/2016 8:50 AM CDT 10/11/2016 9:09 AM CDT us Sujatha Gamez MD LAB BLOOD ORDERAB LES Final Result [facility] Department [place] [address] * (ABNORMAL) Differential, auto (10/11/2016 8:50 AM CDT) Neutrophil pct 65.2 % [facility] Imm gran pct 0.8 % [facility] Lymphocyte pct 19.7 % [facility] Monocyte pct 10.9 % [facility] Eosinophil pct 2.6 % [facility] Basophil pct 0.8 % [facility] Neutrophil abs 2.52 1.70 - 6.50 K/cumm [facility] Imm gran abs 0.03 0.00 - 0.10 K/cumm [facility] Lymphocyte abs 0.76(L) 0.80 - 3.30 K/cumm [facility] Monocyte abs 0.42 0.20 - 0.80 K/cumm [facility] Eosinophil abs 0.10 0.00 - 0.50 K/cumm [facility] Basophil abs 0.03 0.00 - 0.10 K/cumm [facility] Blood specimen (specimen) 10/11/2016 8:50 AM CDT 10/11/2016 9:09 AM CDT us Sujatha Gamez MD LAB BLOOD ORDERAB LES Final Result [facility] Department [place] [address] * (ABNORMAL) CBC with auto differential (10/11/2016 8:50 AM CDT) [facility] WBC 3.86 3.80 - 9.90 K/cumm [facility] RBC 4.79 4.30 - 5.80 M/cumm [facility] Hgb 13.4 13.0 - 17.5 g/dL [facility] Hct 39.2 38.9 - 50.3 % [facility] MCV 81.8 81.3 - 96.4 fL [facility] MCH 28.0 27.1 - 33.3 pg [facility] MCHC 34.2 32.3 - 35.7 g/dL [facility] RDW CV 14.7 11.1 - 14.9 % [facility] RDW SD 43.4 35.7 - 48.1 fL [facility] Plt 82(L) 150 - 400 K/cumm [facility] MPV 10.9 9.1 - 12.3 fL [facility] NRBC 0.0 0.0 - 0.2 % [facility] NRBC abs 0.00 0.00 - 0.01 K/cumm [facility] Blood specimen (specimen) 10/11/2016 8:50 AM CDT 10/11/2016 9:09 AM CDT us Sujatha Gamez MD LAB BLOOD ORDERAB LES Final Result [facility] Department [place] [address] * POCT BETA-HYDROXYBUTYRATE WHOLE BLOOD (10/11/2016 6:45 AM CDT) Pathologist [facility] Beta Hydroxybutyrate , Whole Blood, Precision X-tra POC 0.1 0.0 - 0.5 mmol/L [facility] Blood specimen (specimen) 10/11/2016 6:45 AM CDT 10/12/2016 9:21 AM CDT us Notinfile Unknown LAB BLOOD ORDERABLES Final Res ult Performing Organization Address City/[facility]/ZIP Co de Phone Number [facility] [place] [address] * (ABNORMAL) Glucose POC (10/11/2016 6:40 AM CDT) [facility] Glucose, POC 342(H) 70 - 199 mg/dL [facility] Blood specimen (specimen) 10/11/2016 6:40 AM CDT 10/11/2016 6:40 AM CDT us Notinfile Unknown POINT OF CARE TEST ORDERABLES Final Result Performing Organization Address City/[facility] Co de Phone Number [facility] [place] [address] documented in this encounter Visit Diagnoses Not on filedocumented in this encounter Care Teams Magnetic Tape Typewriter Operator Relationship Specialty Start Date End Date No, Physician PCP - General 09/16/16 11/05/16 documented as of this encounter
--- OUTSIDE RECORDS SUMMARY | 2024-04-19 23:09 | XMS_ITS | Encounter Summary ---
Author Organization [facility] Facility Care Team Providers Care Data Integrity Analyst Name Role Phone Unavailable Primary Care Provider Unavailabl e Encounter Details Date Type Department Care Team (Late st Contact Info) Description 06/03/2016 10:30 AM CRYPTOLOGICAL TECHNICIAN - 06/03/2016 11:59 PM [facility] Hospital Encounter [facility] Katrhyn Yang MD [address] [address] Social History Tobacco Use Types Packs/Day Years Used Date Smoking Tobacco: Never Assessed Sex and Gender Information Value Date Recorded Sex Assigned at Not on file Legal Sex Male 2:52 PM CRYPTOLOGICAL TECHNICIAN Gender Identity Male 10/29/2020 12:37 PM [...]
--- OUTSIDE RECORDS SUMMARY | 2024-04-19 23:09 | XMS_ITS | Encounter Summary ---
Author Organization [facility] Address [address] [place] [address] Phone Care Team Providers Care Pattern Setter Name Role Phone Kris Soto MD Primary Care Provide r Encounter Details Date Type Department Care Team (Late st Contact Info) Description 02/04/[address] 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 He left AMA. I called him to remind him of his 02/15 ROV w/ DR Ellis that he said he would attend. I cancelled his scheduled US w/ Dop as it was done in-pt--he is aware. documented in this encounter Plan of Treatment Not on file documented as of this encounter Visit Diagnoses Not on filedocumented in this encounter Care Teams Pattern Setter Relationship Specialty Start Date End Date Kris Soto MD [address] [place] [address] PCP - General 12/08/16 10/26/18 documented as of this encounter
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
--- OUTSIDE RECORDS SUMMARY | 2024-04-19 23:09 | XMS_ITS | Encounter Summary ---
Author Organization [facility] Address [address] [place] [address] Phone Care Team Providers Care Supervisor Core Shop Name Role Phone Kris Soto MD Primary Care Provide r Encounter Details Date Type Department Care Team (Late st Contact Info) Description 10/12/2017 Documentation [facility] Gastroenterology [facility] 8th [place] [address] [place] [address] Christiana Carrillo RN Social History Tobacco Use Types Packs/Day Years Used Date Smoking Tobacco: Former Smokeless Tobacco: Never Alcohol Use Standard Drinks/Week Comments No 0 (1 standard drink = 0.6 oz pur e alcohol) Sex and Gender Information Value Date Recorded Sex Assigned at Not on file Legal Sex Male 2:52 PM WORM PACKER Gender Identity Male 10/29/2020 12:37 PM CDT Sexual Orientation Straight 10/29/2020 12 :37 PM CDT documented as of this encounter Progress Notes * Christiana Carrillo RN - 10/12/2017 4:15 PM CDT Request for Medical Records To: [facility] Attn: Medical Records Department From: Christiana Carrillo RN, BSN Requesting Physician: Kathryn Ellis MD--PATIENT'S GYROSCOPE REPAIRER Patient Name: CAMILO CURRY : 1970 Medical Records requested to facilitate treatment of our patient listed above. We are requesting: EMERGENCY ROOM INFORMATION FROM MOST RECENT VISIT: MD SUMMARY, LABS, ABDOMINAL IMAGING, ANY DIAGNOSTIC TESTING Medical Records are needed by: HEIKE Please fax to [phone]. According to HIPAA regulation, a signed patient request for release of information is NOT required WHEN the request is for TREATMENT or BILLING of a patient. Any and all assistance in returning the requested information in a timely fashion would be appreciated and would assist in expediting patientcare. If the casino manager of your medical records department has any questions, please contact Lynda Ballard at for clarification or the HIPAA.ORG web site (HIPAA Protecting Privacy of Patient Health Information Act 08/16/04 Div of Procedural Enforcement Codes). documented in this encounter Plan of Treatment Not on file documented as of this encounter Visit Diagnoses Not on filedocumented in this encounter Care Teams Supervisor Core Shop Relationship Specialty Start Date End Date Kris Soto MD [address] [place] [address] PCP - General 12/08/16 10/26/18 documented as of this encounter
--- OUTSIDE RECORDS SUMMARY | 2024-04-19 23:09 | XMS_ITS | Encounter Summary ---
Author Organization [facility] Healthcare Address [address] [place] [address] Care Team Providers Care Wallpaper Installer Name Role Phone Kris Soto MD Primary Care Provide r Encounter Details Date Type Department Care Team (Late st Contact Info) Description 11/25/2016 3:21 PM CDT - 11/25/2016 11:59 PM CDT Hospital Encounter [facility] Kris Soto MD [address] [place] [address] Discharge Disposition: Discharge to home or self care Social History Tobacco Use Types Packs/Day Years Used Date Smoking Tobacco: Never Assessed Sex and Gender Information Value Date Recorded Sex Assigned at Not on file Legal Sex Male 2:52 PM REINFORCED STEEL PLACING SUPERVISOR Gender Identity Male 10/29/2020 12:37 PM [...] on filedocumented in this encounter Care Teams Wallpaper Installer Relationship Specialty Start Date End Date Kris Soto MD [address] [place] [address] PCP - General 11/25/16 11/26/16 documented as of this encounter
--- OUTSIDE RECORDS SUMMARY | 2024-04-19 23:09 | XMS_ITS | Encounter Summary ---
Author Organization [facility] Address [address] [place] [address] Phone Care Team Providers Care Distribution System Operator Name Role Phone Kris Soto MD Primary Care Provide r Encounter Details Date Type Department Care Team (Late st Contact Info) Description 02/02/2018 Orders Only [facility] Gastroenterology [address] [facility] 8th [place] [address] [place] [phone] Svetlana Aguilar RMA Social History Tobacco Use Types Packs/Day Years Used Date Smoking Tobacco: Former Smokeless Tobacco: Never Alcohol Use Standard Drinks/Week Comments No 0 (1 standard drink = 0.6 oz pur e alcohol) Sex and Gender Information Value Date Recorded Sex Assigned at Not on file Legal Sex Male 2:52 PM PHOTO MANAGER Gender Identity Male 10/29/2020 12:37 PM CDT Sexual Orientation Straight 10/29/2020 12 :37 PM CDT documented as of this encounter Plan of Treatment Not on file documented as of this encounter Visit Diagnoses Not on filedocumented in this encounter Historical Medications * This list may reflect changes made after this encounter. lactulose solution 10 gram/15mL TAKE 30MLS BY MOUTH FOUR TIMES A DAY NEEDED 09/10/2015 HUMULIN R U-500, CONC, KWIKPEN 500 unit/mL (3 mL) CONCENTRATED injection 01/02/2018 ONETOUCH ULTRA BLUE TEST STRIP strip 01/05/2018 rifAXIMin (XIFAXAN) 550 mg tablet 2 times daily. 01/21/2016 1 ALPRAZolam (XANAX) 0.5 mg tablet TAKE 1 TABLET TWICE DAILY NEEDED. 09/10/2015 2 ondansetron (ZOFRAN) 4 mg tablet take 1 tab every 8 hours prn nausea and vomitting 09/10/2015 4 omeprazole (PriLOSEC) 20 mg capsule 2 times daily. 09/10/2015 4 ergocalciferol (VITAMIN D) 50,000 unit capsule once a week. 07/07/2017 1 UNKNOWN TO PATIENT Humalog U 500 150 units bid 100-150 units hs 1 hepatitis A and B ([place], PF,) 720 Nydia unit -20 mcg/mL suspensionIndicati ons:Hepatitis B Prevention,Viral Hepatitis A Prevention Inject into the muscle as instructed. 09/20/2015 1 traMADol (ULTRAM) 50 mg tablet TAKE 1 TABLET 3 TIMES DAILY NEEDED. 12/08/2016 2 BD ULTRA-FINE SHORT PEN NEEDLE 31 gauge x 5/16 needle 01/02/2018 1 ONETOUCH DELICA LANCETS 30 gauge misc 11/02/2017 1 PROVENTIL HFA 90 mcg/actuation inhaler 01/14/2018 4 HYDROcodone-acetam inophen (NORCO) 10-325 mg per tabletIndications: Pain as directed for pain prn 09/10/2015 1 added in this encounter Care Teams Distribution System Operator Relationship Specialty Start Date End Date Kris Soto MD [address] [place] [address] PCP - General 12/08/16 10/26/18 documented as of this encounter
--- OUTSIDE RECORDS SUMMARY | 2024-04-19 23:10 | XMS_ITS | Encounter Summary ---
Author Organization [facility] Facility Care Team Providers Care Fisher Lampara Net Name Role Phone Unavailable Primary Care Provider Unavailabl e Encounter Details Date Type Department Care Team (Late st Contact Info) Description 12/20/2015 5:19 PM CDT - 12/20/2015 5:57 PM CDT Hospital Encounter [facility] Nabil Flores MD [address] [facility] [place] [address] Encounter for issue of repeat prescription Social History Tobacco Use Types Packs/Day Years Used Date Smoking Tobacco: Never Assessed Sex and Gender Information Value Date Recorded Sex Assigned at Not on file 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
--- OUTSIDE RECORDS SUMMARY | 2024-04-19 23:10 | XMS_ITS | Encounter Summary ---
Author Organization [facility] Care Team Providers Care Director Of Curriculum And Instruction Name Role Phone Unavailable Primary Care Provider Unavailabl e Encounter Details Date Type Department Care Team (Latest Contact Info) Description 11/07/2015 11:25 PM CDT - 11/09/2015 11:13 AM CDT Hospital Encounter [facility] Kisha Hernandez MD [address] [place] [address] Hematemesis; Portal hypertension (CMS/HCC); Nonalcoholic steatohepatitis (BLAND); Esophageal varices without bleeding (CMS/HCC); Type 2 diabetes mellitus without complications (CMS/HCC); Bipolar disorder (CMS/HCC); Anxiety disorder; Personal history of nicotine dependence; Family history of malignant neoplasm of digestive organ; Other diseases of stomach and duodenum; Allergy status to penicillin; Other polyp of sinus; Gastro-esophageal reflux disease without esophagitis Social History Tobacco Use Types Packs/Day Years Used Date Smoking Tobacco: Never Assessed Sex and Gender Information Value Date Recorded Sex Assigned at Not on file 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 Gender Identity Male 10/29/2020 12:37 PM CDT Sexual Orientation Straight 10/29/2020 12 :37 PM CDT documented as of this encounter Last Filed Vital Signs Vital Sign Reading Time Taken Comments Blood Pressure 111/65 11/09/2015 5:30 AM CDT Pulse 66 11/09/2015 5:30 AM CDT Temperature - - Respiratory Rate - - Oxygen Saturation 96% 11/09/2015 5:30 AM CDT Inhaled Oxygen Concentration - - Weight 105 kg (231 lb 7.7 oz) 11/07/2015 11:37 P M CDT Height 172.7 cm (5' 8 ) 11/07/2015 11:37 PM CDT Body Mass Index 35.2 11/07/2015 11:37 PM CDT documented in this encounter Medications [...] 09/10/2015 4 documented as of this encounter H&P Notes * Provider, MD Tyler - 11/07/2015 12:00 AM CDT Patient: CAMILO CURRY Reg No: [id number] U H #: [id number] Admit Dt.: 11/07/2015 : 1970 Room No: 48380-44 Attending: Kisha Quezada M.D. Dictating: Kisha Quezada M.D. ADMISSION HISTORY AND PHYSICAL Date of Service: 11/07/2015 Admitting Diagnoses: 1. Hematemesis. 2. Esophageal varices. 3. Nonalcoholic steatohepatitis (BLAND) cirrhosis. 4. Diabetes. Chief Complaint: Hematemesis. History of Present Illness: This is a 45-year-old male with a history of BLAND cirrhosis, complicated by esophageal varices, status post recent banding, who presented to [facility] ER with complaints of hematemesis. The patient has had multiple episodes of mild hematemesis secondary to esophageal varices, for which he has undergone banding. The patient, most recently, started having hematemesis last week, Thursday, approximately 5 days prior to presentation. [facility], with whom he follows for care of his cirrhosis, and it was recommended he go to a local ER. There was attempt to transfer to [place] but, because of reports of hematemesis, it was requested he go to an ICU as opposed to the regular floor; however, the patient was not sick enough for the ICU, and so therefore was not accepted by the ICU. As a result, he ended up being transferred to [facility], where he underwent EGD on November 05, 2015. Apparently, the patient woke up during the procedure and required to be held down and restrained in order to complete the procedure. The patient reports that upon arrival home, he continued to have hematemesis, waking up with blood on his pillow. He called his PCP, who was concerned that the procedure was might not have been successful due to the fact that he did require restraint detention through and recommended he go to the ER for evaluation. Here, the patient was having hematemesis in triage, but has not had any since. His first CBC revealed a stable hemoglobin around 12, which is close to his baseline. He was given octreotide, IV PPI, and ciprofloxacin for SBP prophylaxis because of PENICILLIN ALLERGY. Unfortunately, the patient did develop swelling, erythema, and a rash that sounded like hives on his arm, and so the infusion was stopped and the rash resolved after flushing. Though the patient did not report this, per the nursing report, he was having shortness of breath and chest pain at that time, as well. It was documented that he now had a NEW CIPROFLOXACIN ALLERGY. Interestingly, he did receive oral Cipro in August and September without any issues. The patient, on interview, is otherwise without complaint, feeling well. Denies any fevers, chills, or nausea. He does have his chronic abdominal pain and reports he has been taking all of his medications appropriately. Allergies: The patient is allergic to penicillin, it causes respiratory failure. Sulfa causes hives. Erythromycin causes hives. Nexium causes hives. IV contrast causes swelling. Cipro caused a red rash that sounded like hives. Medications: 1. [place] 5/325 mg 2 tablets twice a day as needed for pain. 2. Metformin 500 mg b.i.d. 3. Xanax 0.5 mg twice a day as needed for anxiety. 4. Zofran as needed for nausea. 5. Protonix 40 mg b.i.d. 6. Nadolol 20 mg daily. 7. Lactulose 30 mL daily. 8. Trazodone 100 mg at bedtime. Past Medical and Surgical History: 1. Recent diagnosis of BLAND cirrhosis in August 2015. This is complicated by esophageal varices with episodes of mild hematemesis, for which he underwent banding but did not require ICU stay. 2. Type 2 diabetes. 3. History of suicide attempt, which explains the multiple scars on his bilateral forearms. Family History: Significant for father with esophageal cancer. Social History: The patient does not drink alcohol. He has a [id number] smoking history, but quit 13 years ago. He used to smoke meth and crack in the , but none since 1997 after he had an overdose. He has no history of IV drug use. Review of Systems: All other systems negative. Physical Examination: Vital Signs: Temperature 97.8, pulse 79, respirations 18, blood pressure 133/85, he is 97% on room air. General: The patient is alert, oriented x4, sitting comfortably upright in bed, in no acute distress, appearing stated age. HEENT: Pupils are equal and reactive to light. Anicteric. Oropharynx is clear with moist mucous membranes. Neck: Soft and supple. No JVD. Pulmonary: Clear to auscultation bilaterally. Cardiovascular: Regular rate and rhythm. No murmurs, gallops, or thrills. Abdomen: Positive bowel sounds. Soft. Mild tenderness to palpation in the epigastric region. No distention, guarding, or rebound. Musculoskeletal: No clubbing, cyanosis, edema. Extremities are warm and well-perfused with 2+ radial pulses bilaterally. Skin: No rashes. Neurological: Cranial nerves II through XII intact, 5/5 strength. Grossly nonfocal. Psychiatric: Appropriate affect. Pleasant. Good eye contact. Laboratory and X-Ray Data: CBC: White count 4.98, hemoglobin 12.4, hematocrit 39.8, platelets 79,000. BMP: Sodium 142, potassium 4.1, chloride 105, bicarbonate 27, BUN 10, creatinine 1.06, glucose 96. Assessment and Plan: This is a 45-year-old male with history of nonalcoholic steatohepatitis (BLAND) cirrhosis, complicated by portal hypertension with esophageal varices, required banding multiple times, here with hematemesis. 1. Hematemesis. The patient does appear stable at this time. We will continue to monitor serial CBCs as well as the patient for worsening of his hematemesis. We will continue with octreotide and IV PPI b.i.d. He will be n.p.o. after midnight for possible EGD in the morning. Reportedly, the ER did contact the gastroenterology service, but we will confirm whether they are able to add him on for an EGD in the morning. For now, we will hold his nadolol in the event of more aggressive bleeding. It is unclear why the patient tolerated multiple doses of oral Cipro in the past and now had a rash to the IV Cipro. Pharmacy was contacted, who had not heard of issues with allergies with the carrier for IV Cipro in the past. They reported that there was a possibility that the infusion was occurring too quickly but, given that we are unable to determine that at this time, I WILL ASSUME THE PATIENT HAS A CIPROFLOXACIN ALLERGY and provide aztreonam for SBP prophylaxis at this time. 2. Nonalcoholic steatohepatitis (BLAND) cirrhosis. we will hold the nadolol to avoid risk of hypotension in the event of more aggressive hematemesis. We will continue lactulose and [place] for the patient's chronic abdominal pain from his cirrhosis. 3. Diabetes. Hold metformin. Continue extra low-dose insulin sliding scale. 4. FEN/prophylaxis: The patient will be n.p.o. after midnight. No subcutaneous heparin for DVT prophylaxis, as the patient ambulates. 5. HE IS FULL CODE. Electronically Authenticated and Edited by: Kisha Quezada M.D. On 11/09/2015 12:56 AM CDT Kisha Quezada M.D. CLA:lizzie #[id number] Editing MT: TD: 11/08/2015 02:35 AM cc: Kisha Quezada M.D. documented in this encounter Plan of Treatment Not on file documented as of this encounter Procedures Procedure Name Priority Date/Time Associated Diagnosis Comments VLWU DUPLEX SCAN OF AORTA; INFERIOR VENA CAVA, ILIAC, COMPLETE BILATERAL Routine 12/24/2015 9:38 AM CDT CHEST RADIOGRAPHY, FRONTAL (AP), LATERAL Routine 11/23/2015 12:28 PM CDT ELECTROCARDIOGRAPHY (ECG) 11/23/2015 DISCHARGE LABORATORY CUMULATIVE REPORT 11/23/2015 US GUIDED VASCULAR ACCESS Routine 2015 12:44 PM CDT US GUIDED VASCULAR ACCESS Routine 2015 12:44 PM CDT TIPS INITIAL Routine 11/22/2015 12:44 PM CDT ALL MICROBIOLOGY REPORT SECTION Routine 11/20/2015 12:00 AM CDT XR CHEST 1 VIEW Routine 11/19/2015 9:39 AM CDT UPPER GASTROINTESTINAL ENDOSCOPY REPORT 11/19/2015 ELECTROCARDIOGRAPHY (ECG) 11/19/2015 ALL MICROBIOLOGY REPORT SECTION Routine 11/19/2015 12:00 AM CDT ALL MICROBIOLOGY REPORT SECTION Routine 11/19/2015 12:00 AM CDT BLOOD GLUCOSE, POC Routine 11/09/2015 7: 58 AM CDT DISCHARGE LABORATORY CUMULATIVE REPORT 11/09/2015 BLOOD CELL COUNT (CBC) Routine 6 9:08 PM CDT BLOOD CELL MORPHOLOGIC EXAM Routine 11/08/2015 9:08 PM CDT BLOOD GLUCOSE, POC Routine 11/08/2015 8: 22 PM CDT BLOOD GLUCOSE, POC Routine 11/08/2015 4: 59 PM CDT BLOOD GLUCOSE, POC Routine 11/08/2015 1: 38 PM CDT PLASMA PROTHROMBIN TIME (PT) Routine 11/08/2015 10:45 AM CDT BLOOD CELL COUNT (CBC) Routine 6 10:45 AM CDT BLOOD CELL MORPHOLOGIC EXAM Routine 11/08/2015 10:45 AM CDT BLOOD GLUCOSE, POC Routine 11/08/2015 7: 56 AM CDT ABDOMINAL RADIOGRAPHY, FRONTAL (AP) Routine 11/08/2015 6:15 AM CDT BLOOD CELL COUNT Routine 11/08/2015 3:12 AM CDT BLOOD GLUCOSE, POC Routine 11/08/2015 12 :06 AM CDT UPPER GASTROINTESTINAL ENDOSCOPY REPORT 11/08/2015 BLOOD CHECK SAMPLE Routine 11/07/2015 7: 49 PM CDT SERUM LIPID PANEL Routine 11/07/2015 7:2 5 PM CDT PLASMA HEPATIC FUNCTION PANEL Routine 11/07/2015 7:25 PM CDT PLASMA BASIC METABOLIC PANEL Routine 11/07/2015 7:25 PM CDT BLOOD CELL COUNT (CBC) Routine 6 7:25 PM CDT BLOOD ABO, RH, INDIRECT AB SCREEN Routine 11/07/2015 7:25 PM CDT BLOOD CELL MORPHOLOGIC EXAM Routine 11/07/2015 7:25 PM CDT documented in this encounter Results * US Duplex Scan of Aorta; Inferior Vena Cava, Iliac, Complete (12/24/2015 9:38 AM CDT) Anatomical Region Laterality Modality Vascular Ultrasound 12/24/2015 9:38 AM CDT Narrative 12/24/2015 3:47 PM CDT KIERAN RAMIREZ M.D. NILAY CHISHOLM M.D. FINAL REPORT The radiology attending physician has personally reviewed this study, and has reviewed and/or edited this written report and agrees with it. ACC# ??Date Time ??Exam [id number] Dec 24, 2015 09:38:00 [id number] Abd Orgn Duplex EXAMINATION: ?LIVER DOPPLER - TIPS HISTORY: ??45-year-old man status post transjugular intrahepatic portosystemic shunt (TIPS) placement on 11/22/2015 for ascites. FINDINGS: ??Color Doppler and spectral analysis were used to evaluate the stent and hepatic vasculature. ??Main portal vein velocity measures 45 cm/second. ??Flow is retrograde in both the right and left portal vein branches; flow is markedly slow in the left portal vein. ??Maximum velocity within the stent occurs in the proximal portion and measures 147 cm/second. ??Minimum velocity occurs within the distal portion of the stent and measures 116 cm/second. ??The draining hepatic vein shows hepatopetal (antegrade) flow with a velocity of 10 cm/second. ??There is no evidence of stenosis or collaterals. There is no ascites. IMPRESSION: ?? Patent functioning TIPS. Requested By: SAMARIA COLINDRES M.D. Dictated By: ?? NILAY CHISHOLM M.D. ??on Dec 24 2015 ??9:43A This document has been electronically signed by: KIERAN RAMIREZ M.D. on Dec 24 2015 ??3:46P [id number] Procedure Note Provider, MD Tyler - 08/24/2016 KIERAN RAMIREZ M.D. NILAY CHISHOLM M.D. FINAL REPORT The radiology attending physician has personally reviewed this study, and has reviewed and/or edited this written report and agrees with it. ACC# Date Time Exam [id number] Dec 24, 2015 09:38:00 [id number] Abd Orgn Duplex EXAMINATION: LIVER DOPPLER - TIPS HISTORY: 45-year-old man status post transjugular intrahepatic portosystemic shunt (TIPS) placement on 11/22/2015 for ascites. FINDINGS: Color Doppler and spectral analysis were used to evaluate the stent and hepatic vasculature. Main portal vein velocity measures 45 cm/second. Flow is retrograde in both the right and left portal vein branches; flow is markedly slow in the left portal vein. Maximum velocity within the stent occurs in the proximal portion and measures 147 cm/second. Minimum velocity occurs within the distal portion of the stent and measures 116 cm/second. The draining hepatic vein shows hepatopetal (antegrade) flow with a velocity of 10 cm/second. There is no evidence of stenosis or collaterals. There is no ascites. IMPRESSION: Patent functioning TIPS. Requested By: SAMARIA COLINDRES M.D. Dictated By: NILAY CHISHOLM M.D. on Dec 24 2015 9:43A This document has been electronically signed by: KIERAN RAMIREZ M.D. on Dec 24 2015 3:46P [id number] Historical Provider CV VASCULAR PROCEDURES Fi nal Result * CHEST RADIOGRAPHY, FRONTAL (AP), LATERAL (11/23/2015 12:28 PM CDT) Anatomical Region Laterality Modality N/A Radiographic Aruna ging 11/23/2015 12:2 8 PM CDT Narrative 11/23/2015 3:11 PM CDT KORY OKEEFE M.D. JOSE D ALFONSO M.D. FINAL REPORT The radiology attending physician has personally reviewed this study, and has reviewed and/or edited this written report and agrees with it. ACC# ??Date Time ??Exam [id number] Nov 23, 2015 12:28:00 04253 Chest 2 views Front&Lat EXAMINATION: ?? Chest two views IMPRESSION: ?? Comparison is made to prior study dated 11/19/2015. Lungs are clear. Specifically, no pneumonia or edema. No pneumothorax or pleural effusion. Cardiomediastinal silhouette is normal. Transjugular intrahepatic portosystemic shunt is seen projecting over the right upper quadrant of the abdomen. Requested By: CORAZON RIOJAS M.D. Dictated By: ?? JOSE D ALFONSO M.D. ??on Nov 23 2015 ??2:59P This document has been electronically signed by: KORY OKEEFE M.D. on Nov 23 2015 ??3:11P [id number] Procedure Note Provider, MD Tyler - 08/24/2016 KORY OKEEFE M.D. JOSE D ALFONSO M.D. FINAL REPORT The radiology attending physician has personally reviewed this study, and has reviewed and/or edited this written report and agrees with it. ACC# Date Time Exam [id number] Nov 23, 2015 12:28:00 [id number] Chest 2 views Front&Lat EXAMINATION: Chest two views IMPRESSION: Comparison is made to prior study dated 11/19/2015. Lungs are clear. Specifically, no pneumonia or edema. No pneumothorax or pleural effusion. Cardiomediastinal silhouette is normal. Transjugular intrahepatic portosystemic shunt is seen projecting over the right upper quadrant of the abdomen. Requested By: CORAZON RIOJAS M.D. Dictated By: JOSE D ALFONSO M.D. on Nov 23 2015 2:59P This document has been electronically signed by: KORY OKEEFE M.D. on Nov 23 2015 3:11P [id number] Result [facility] Provider IMG XR PROCEDURES Final R esult * DISCHARGE LABORATORY CUMULATIVE REPORT (11/23/2015) Narrative 11/23/2015 Ordered by an unspecified provider. Historical Provider LAB BLOOD ORDERABLES Anastasiya l Result * ELECTROCARDIOGRAPHY (ECG) (11/23/2015) Narrative 11/23/2015 Ordered by an unspecified provider. [facility] Provider ECG ORDERABLES Final Res ult * TIPS - Initial (11/22/2015 12:44 PM CDT) Anatomical Region Laterality Modality Body N/A X-Ray Angiograph y 11/22/2015 12:4 4 PM CDT Narrative 11/23/2015 9:04 AM CDT NIEVES CHEW M.D. DUNG WILSON MD FINAL REPORT The radiology attending physician has personally reviewed this study, and has reviewed and/or edited this written report and agrees with it. ACC# ??Date Time ??Exam [id number] Nov 22, 2015 12:44:00 [id number] TIPS -initial [id number] Nov 22, 2015 12:44:00 78846 USguide Chavo Acc R [id number] Nov 22, 2015 12:44:00 43657 USguide Chavo Acc R ACC# ??Date Time ??Exam [id number] Nov 22, 2015 12:44:00 93209 TIPS -initial [id number] Nov 22, 2015 12:44:00 97321 USguide Chavo Acc R [id number] Nov 22, 2015 12:44:00 27446 USguide Chavo Acc R EXAMINATION: ?TRANSJUGULAR INTRAHEPATIC PORTOSYSTEMIC SHUNT PLACEMENT PROCEDURE: 1. ??US guided access of the right internal jugular vein and right common femoral vein 2. ??Transjugular intrasystemic portosystemic shunt creation (TIPS) using intravascular ultrasound 3. ??Stent deployment into the newly created shunt ([place] [employer] TIPS Endoprothesis 10 mm x 8 cm x 2 cm) with stent dilation to 10 mm 4. 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 Chew, the attending radiologist, was present from the beginning to the end of the procedure. SEDATION: The procedure was done under General Anesthesia. TECHNIQUE: ??The risks, benefits and alternatives were discussed and informed consent was obtained. Prior to beginning the procedure, [place] Protocol was performed to confirm the patient's identity and the planned procedure. ??The fluoroscopy time has been recorded in the electronic medical record. Maximum sterile barriers including cap, mask, hand hygiene, sterile gloves, sterile gown, large sterile drape and 2% chlorhexidine for cutaneous antisepsis were used. The skin over the right internal jugular access site was infiltrated with 1% lidocaine. The vein was accessed using real-time ultrasound guidance. A wire was advanced centrally followed by placement of a 10 grenadian vascular sheath. Using fluoroscopic guidance, a Lev catheter was advanced into the middle hepatic vein. The skin over the right femoral vein access site was infiltrated with 1% lidocaine. The vein was accessed using real-time ultrasound guidance. A wire was advanced centrally followed by placement of a 10 grenadian vascular sheath. Using fluoroscopic guidance, a [employer] intravascular ultrasound was advanced into the hepatic into the vena cava to visualize the middle hepatic vein and left portal vein. Over an Amplatz wire the Lev catheter from the internal jugular vein access was exchanged for a [place] needle. Passes were made across the liver parenchyma under intravascular ultrasound and fluoroscopic guidance until the left portal vein was entered. A guidewire followed by a catheter was advanced into the portal vein which was confirmed by contrast injection. A marking pigtail catheter was then advanced into the portal vein. Simultaneous portal and hepatic venography was done to measure the length of the transhepatic tract. Pre-TIPS pressures were measured in the portal vein and right atrium. The catheter was exchanged over an extra-stiff guidewire for an 8 mm balloon which was used to pre-dilate the parenchymal tract. The long sheath (10 x 30) was advanced into the portal vein and through this, a Viatorr 10 mm x 8 cm was advanced and deployed. The stent graft was dilated using a 10 mm balloon. The pigtail catheter was re-advanced into the portal vein for post-TIPS venography and pressure measurements. The catheters were removed and hemostasis was achieved at the access site by manual compression ESTIMATED BLOOD LOSS: Minimal CONDITION: Stable condition DISCHARGED TO: ??Recovery and then to inpatient care unit FINDINGS: Initial recorded ultrasound image of the access vein showed patent right internal jugular and right femoral ??veins. The hepatic veins were patent and normal caliber. The initial portogram showed a normal caliber patent portal vein. A large gastroesophageal varix was identified. Pre-TIPS pressures were measured revealing a portal vein pressure of 30 mmHg, right atrial pressure of 12 mmHg thus giving a portosystemic gradient of 18 mmHg. After creation of the TIPS, venography showed good flow through the TIPS. Post-TIPS pressures were: portal vein pressure of 22 mmHg, right atrial pressure of 15 mmHg thus giving a portosystemic gradient of 7 mmHg. ?? IMPRESSION: 1. ??Portal hypertension successfully treated by TIPS using intravascular ultrasound with portosystemic gradient decreasing from 18 mmHg to 7 mmHg PLAN: The patient will be monitored to assess the therapeutic response as well as delayed complications. ?? Requested By: CORAZON RIOJAS M.D. Dictated By: ?? DUNG WILSON MD ??on Nov 22 2015 ??5:42P This document has been electronically signed by: NIEVES CHEW M.D. on Nov 23 2015 ??9:04A [id number] Procedure Note Provider, MD Tyler - 08/24/2016 NIEVES CHEW M.D. DUNG WILSON MD FINAL REPORT The radiology attending physician has personally reviewed this study, and has reviewed and/or edited this written report and agrees with it. ACC# Date Time Exam [id number] Nov 22, 2015 12:44:00 05328 TIPS -initial [id number] Nov 22, 2015 12:44:00 93800 USguide Chavo Acc R [id number] Nov 22, 2015 12:44:00 [id number] USguide Chavo Acc R ACC# Date Time Exam [id number] Nov 22, 2015 12:44:00 17457 TIPS -initial [id number] Nov 22, 2015 12:44:00 09147 USguide Chavo Acc R [id number] Nov 22, 2015 12:44:00 [id number] USguide Chavo Acc R EXAMINATION: TRANSJUGULAR INTRAHEPATIC PORTOSYSTEMIC SHUNT PLACEMENT PROCEDURE: 1. US guided access of the right internal jugular vein and right common femoral vein 2. Transjugular intrasystemic portosystemic shunt creation (TIPS) using intravascular ultrasound 3. Stent deployment into the newly created shunt ([place] [employer] TIPS Endoprothesis 10 mm x 8 cm x 2 cm) with stent dilation to 10 mm 4. 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 Chew, the attending radiologist, was present from the beginning to the end of the procedure. SEDATION: The procedure was done under General Anesthesia. TECHNIQUE: The risks, benefits and alternatives were discussed and informed consent was obtained. Prior to beginning the procedure, [place] Protocol was performed to confirm the patient's identity and the planned procedure. The fluoroscopy time has been recorded in the electronic medical record. Maximum sterile barriers including cap, mask, hand hygiene, sterile gloves, sterile gown, large sterile drape and 2% chlorhexidine for cutaneous antisepsis were used. The skin over the right internal jugular access site was infiltrated with 1% lidocaine. The vein was accessed using real-time ultrasound guidance. A wire was advanced centrally followed by placement of a 10 grenadian vascular sheath. Using fluoroscopic guidance, a Lev catheter was advanced into the middle hepatic vein. The skin over the right femoral vein access site was infiltrated with 1% lidocaine. The vein was accessed using real-time ultrasound guidance. A wire was advanced centrally followed by placement of a 10 grenadian vascular sheath. Using fluoroscopic guidance, a [employer] intravascular ultrasound was advanced into the hepatic into the vena cava to visualize the middle hepatic vein and left portal vein. Over an Amplatz wire the Lev catheter from the internal jugular vein access was exchanged for a [place] needle. Passes were made across the liver parenchyma under intravascular ultrasound and fluoroscopic guidance until the left portal vein was entered. A guidewire followed by a catheter was advanced into the portal vein which was confirmed by contrast injection. A marking pigtail catheter was then advanced into the portal vein. Simultaneous portal and hepatic venography was done to measure the length of the transhepatic tract. Pre-TIPS pressures were measured in the portal vein and right atrium. The catheter was exchanged over an extra-stiff guidewire for an 8 mm balloon which was used to pre-dilate the parenchymal tract. The long sheath (10 x 30) was advanced into the portal vein and through this, a Viatorr 10 mm x 8 cm was advanced and deployed. The stent graft was dilated using a 10 mm balloon. The pigtail catheter was re-advanced into the portal vein for post-TIPS venography and pressure measurements. The catheters were removed and hemostasis was achieved at the access site by manual compression ESTIMATED BLOOD LOSS: Minimal CONDITION: Stable condition DISCHARGED TO: Recovery and then to inpatient care unit FINDINGS: Initial recorded ultrasound image of the access vein showed patent right internal jugular and right femoral veins. The hepatic veins were patent and normal caliber. The initial portogram showed a normal caliber patent portal vein. A large gastroesophageal varix was identified. Pre-TIPS pressures were measured revealing a portal vein pressure of 30 mmHg, right atrial pressure of 12 mmHg thus giving a portosystemic gradient of 18 mmHg. After creation of the TIPS, venography showed good flow through theTIPS. Post-TIPS pressures were: portal vein pressure of 22 mmHg, right atrial pressure of 15 mmHg thus giving a portosystemic gradient of 7 mmHg. IMPRESSION: 1. Portal hypertension successfully treated by TIPS using intravascular ultrasound with portosystemic gradient decreasing from 18 mmHg to 7 mmHg PLAN: The patient will be monitored to assess the therapeutic response as well as delayed complications. Requested By: CORAZON RIOJAS M.D. Dictated By: DUNG WILSON MD on Nov 22 2015 5:42P This document has been electronically signed by: NIEVES CHEW M.D. on Nov 23 2015 9:04A [id number] us Historical Provider MD PATEL IR PROCEDURES Final R esult * US Guided Vascular Access (11/22/2015 12:44 PM CDT) Anatomical Region Laterality Modality N/A Ultrasound 11/22/2015 12:4 4 PM CDT Narrative 11/23/2015 9:04 AM CDT NIEVES CHEW M.D. DUNG WILSON MD FINAL REPORT The radiology attending physician has personally reviewed this study, and has reviewed and/or edited this written report and agrees with it. ACC# ??Date Time ??Exam [id number] Nov 22, 2015 12:44:00 29948 TIPS -initial [id number] Nov 22, 2015 12:44:00 37764 [facility] Acc R [id number] Nov 22, 2015 12:44:00 78454 [facility] Acc R ACC# ??Date Time ??Exam [id number] Nov 22, 2015 12:44:00 76295 TIPS -initial [id number] Nov 22, 2015 12:44:00 96021 [facility] Acc R [id number] Nov 22, 2015 12:44:00 87804 [facility] Acc R EXAMINATION: ?TRANSJUGULAR INTRAHEPATIC PORTOSYSTEMIC SHUNT PLACEMENT PROCEDURE: 1. ??US guided access of the right internal jugular vein and right common femoral vein 2. ??Transjugular intrasystemic portosystemic shunt creation (TIPS) using intravascular ultrasound 3. ??Stent deployment into the newly created shunt ([place] [employer] TIPS Endoprothesis 10 mm x 8 cm x 2 cm) with stent dilation to 10 mm 4. 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 Chew, the attending radiologist, was present from the beginning to the end of the procedure. SEDATION: The procedure was done under General Anesthesia. TECHNIQUE: ??The risks, benefits and alternatives were discussed and informed consent was obtained. Prior to beginning the procedure, [place] Protocol was performed to confirm the patient's identity and the planned procedure. ??The fluoroscopy time has been recorded in the electronic medical record. Maximum sterile barriers including cap, mask, hand hygiene, sterile gloves, sterile gown, large sterile drape and 2% chlorhexidine for cutaneous antisepsis were used. The skin over the right internal jugular access site was infiltrated with 1% lidocaine. The vein was accessed using real-time ultrasound guidance. A wire was advanced centrally followed by placement of a 10 grenadian vascular sheath. Using fluoroscopic guidance, a Lev catheter was advanced into the middle hepatic vein. The skin over the right femoral vein access site was infiltrated with 1% lidocaine. The vein was accessed using real-time ultrasound guidance. A wire was advanced centrally followed by placement of a 10 grenadian vascular sheath. Using fluoroscopic guidance, a [employer] intravascular ultrasound was advanced into the hepatic into the vena cava to visualize the middle hepatic vein and left portal vein. Over an Amplatz wire the Lev catheter from the internal jugular vein access was exchanged for a Colapinto needle. Passes were made across the liver parenchyma under intravascular ultrasound and fluoroscopic guidance until the left portal vein was entered. A guidewire followed by a catheter was advanced into the portal vein which was confirmed by contrast injection. A marking pigtail catheter was then advanced into the portal vein. Simultaneous portal and hepatic venography was done to measure the length of the transhepatic tract. Pre-TIPS pressures were measured in the portal vein and right atrium. The catheter was exchanged over an extra-stiff guidewire for an 8 mm balloon which was used to pre-dilate the parenchymal tract. The long sheath (10 x 30) was advanced into the portal vein and through this, a Viatorr 10 mm x 8 cm was advanced and deployed. The stent graft was dilated using a 10 mm balloon. The pigtail catheter was re-advanced into the portal vein for post-TIPS venography and pressure measurements. The catheters were removed and hemostasis was achieved at the access site by manual compression ESTIMATED BLOOD LOSS: Minimal CONDITION: Stable condition DISCHARGED TO: ??Recovery and then to inpatient care unit FINDINGS: Initial recorded ultrasound image of the access vein showed patent right internal jugular and right femoral ??veins. The hepatic veins were patent and normal caliber. The initial portogram showed a normal caliber patent portal vein. A large gastroesophageal varix was identified. Pre-TIPS pressures were measured revealing a portal vein pressure of 30 mmHg, right atrial pressure of 12 mmHg thus giving a portosystemic gradient of 18 mmHg. After creation of the TIPS, venography showed good flow through the TIPS. Post-TIPS pressures were: portal vein pressure of 22 mmHg, right atrial pressure of 15 mmHg thus giving a portosystemic gradient of 7 mmHg. ?? IMPRESSION: 1. ??Portal hypertension successfully treated by TIPS using intravascular ultrasound with portosystemic gradient decreasing from 18 mmHg to 7 mmHg PLAN: The patient will be monitored to assess the therapeutic response as well as delayed complications. ?? Requested By: CORAZON RIOJAS M.D. Dictated By: ?? DUNG WILSON MD ??on Nov 22 2015 ??5:42P This document has been electronically signed by: NIEVES CHEW M.D. on Nov 23 2015 ??9:04A [id number] Procedure Note Provider, MD Tyler - 08/24/2016 Amber CHAVEZ MD FINAL REPORT The radiology attending physician has personally reviewed this study, and has reviewed and/or edited this written report and agrees with it. ACC# Date Time Exam [id number] Nov 22, 2015 12:44:00 64109 TIPS -initial [id number] Nov 22, 2015 12:44:00 85024 [facility] Acc R [id number] Nov 22, 2015 12:44:00 10975 [facility] Acc R ACC# Date Time Exam [id number] Nov 22, 2015 12:44:00 01314 TIPS -initial [id number] Nov 22, 2015 12:44:00 41538 [facility]avo Acc R [id number] Nov 22, 2015 12:44:00 79997 [facility] R EXAMINATION: TRANSJUGULAR INTRAHEPATIC PORTOSYSTEMIC SHUNT PLACEMENT PROCEDURE: 1. US guided access of the right internal jugular vein and right common femoral vein 2. Transjugular intrasystemic portosystemic shunt creation (TIPS) using intravascular ultrasound 3. Stent deployment into the newly created shunt ([place] [employer] TIPS Endoprothesis 10 mm x 8 cm x 2 cm) with stent dilation to 10 mm 4. 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 Chew, the attending radiologist, was present from the beginning to the end of the procedure. SEDATION: The procedure was done under General Anesthesia. TECHNIQUE: The risks, benefits and alternatives were discussed and informed consent was obtained. Prior to beginning the procedure, [place] Protocol was performed to confirm the patient's identity and the planned procedure. The fluoroscopy time has been recorded in the electronic medical record. Maximum sterile barriers including cap, mask, hand hygiene, sterile gloves, sterile gown, large sterile drape and 2% chlorhexidine for cutaneous antisepsis were used. The skin over the right internal jugular access site was infiltrated with 1% lidocaine. The vein was accessed using real-time ultrasound guidance. A wire was advanced centrally followed by placement of a 10 grenadian vascular sheath. Using fluoroscopic guidance, a Lev catheter was advanced into the middle hepatic vein. The skin over the right femoral vein access site was infiltrated with 1% lidocaine. The vein was accessed using real-time ultrasound guidance. A wire was advanced centrally followed by placement of a 10 grenadian vascular sheath. Using fluoroscopic guidance, a [employer] intravascular ultrasound was advanced into the hepatic into the vena cava to visualize the middle hepatic vein and left portal vein. Over an Amplatz wire the Lev catheter from the internal jugular vein access was exchanged for a Colapinto needle. Passes were made across the liver parenchyma under intravascular ultrasound and fluoroscopic guidance until the left portal vein was entered. A guidewire followed by a catheter was advanced into the portal vein which was confirmed by contrast injection. A marking pigtail catheter was then advanced into the portal vein. Simultaneous portal and hepatic venography was done to measure the length of the transhepatic tract. Pre-TIPS pressures were measured in the portal vein and right atrium. The catheter was exchanged over an extra-stiff guidewire for an 8 mm balloon which was used to pre-dilate the parenchymal tract. The long sheath (10 x 30) was advanced into the portal vein and through this, a Viatorr 10 mm x 8 cm was advanced and deployed. The stent graft was dilated using a 10 mm balloon. The pigtail catheter was re-advanced into the portal vein for post-TIPS venography and pressure measurements. The catheters were removed and hemostasis was achieved at the access site by manual compression ESTIMATED BLOOD LOSS: Minimal CONDITION: Stable condition DISCHARGED TO: Recovery and then to inpatient care unit FINDINGS: Initial recorded ultrasound image of the access vein showed patent right internal jugular and right femoral veins. The hepatic veins were patent and normal caliber. The initial portogram showed a normal caliber patent portal vein. A large gastroesophageal varix was identified. Pre-TIPS pressures were measured revealing a portal vein pressure of 30 mmHg, right atrial pressure of 12 mmHg thus giving a portosystemic gradient of 18 mmHg. After creation of the TIPS, venography showed good flow through theTIPS. Post-TIPS pressures were: portal vein pressure of 22 mmHg, right atrial pressure of 15 mmHg thus giving a portosystemic gradient of 7 mmHg. IMPRESSION: 1. Portal hypertension successfully treated by TIPS using intravascular ultrasound with portosystemic gradient decreasing from 18 mmHg to 7 mmHg PLAN: The patient will be monitored to assess the therapeutic response as well as delayed complications. Requested By: CORAZON RIOJAS M.D. Dictated By: DUNG WILSON MD on Nov 22 2015 5:42P This document has been electronically signed by: NIEVES CHEW M.D. on Nov 23 2015 9:04A [id number] us Historical Provider MD PATEL US PROCEDURES Final R esult * US Guided Vascular Access (11/22/2015 12:44 PM CDT) Anatomical Region Laterality Modality N/A Ultrasound 11/22/2015 12:4 4 PM CDT Narrative 11/23/2015 9:04 AM CDT Amber CHAVEZ MD FINAL REPORT The radiology attending physician has personally reviewed this study, and has reviewed and/or edited this written report and agrees with it. ACC# ??Date Time ??Exam [id number] Nov 22, 2015 12:44:00 79466 TIPS -initial [id number] Nov 22, 2015 12:44:00 49761 [facility]avo Acc R [id number] Nov 22, 2015 12:44:00 83584 [facility] Chavo Acc R ACC# ??Date Time ??Exam [id number] Nov 22, 2015 12:44:00 52919 TIPS -initial [id number] Nov 22, 2015 12:44:00 41335 [facility] Chavo Acc R [id number] Nov 22, 2015 12:44:00 06233 [facility] Chavo Acc R EXAMINATION: ?TRANSJUGULAR INTRAHEPATIC PORTOSYSTEMIC SHUNT PLACEMENT PROCEDURE: 1. ??US guided access of the right internal jugular vein and right common femoral vein 2. ??Transjugular intrasystemic portosystemic shunt creation (TIPS) using intravascular ultrasound 3. ??Stent deployment into the newly created shunt ([place] [employer] TIPS Endoprothesis 10 mm x 8 cm x 2 cm) with stent dilation to 10 mm 4. 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 Chew, the attending radiologist, was present from the beginning to the end of the procedure. SEDATION: The procedure was done under General Anesthesia. TECHNIQUE: ??The risks, benefits and alternatives were discussed and informed consent was obtained. Prior to beginning the procedure, [place] Protocol was performed to confirm the patient's identity and the planned procedure. ??The fluoroscopy time has been recorded in the electronic medical record. Maximum sterile barriers including cap, mask, hand hygiene, sterile gloves, sterile gown, large sterile drape and 2% chlorhexidine for cutaneous antisepsis were used. The skin over the right internal jugular access site was infiltrated with 1% lidocaine. The vein was accessed using real-time ultrasound guidance. A wire was advanced centrally followed by placement of a 10 grenadian vascular sheath. Using fluoroscopic guidance, a Lev catheter was advanced into the middle hepatic vein. The skin over the right femoral vein access site was infiltrated with 1% lidocaine. The vein was accessed using real-time ultrasound guidance. A wire was advanced centrally followed by placement of a 10 grenadian vascular sheath. Using fluoroscopic guidance, a [employer] intravascular ultrasound was advanced into the hepatic into the vena cava to visualize the middle hepatic vein and left portal vein. Over an Amplatz wire the Lev catheter from the internal jugular vein access was exchanged for a Colapinto needle. Passes were made across the liver parenchyma under intravascular ultrasound and fluoroscopic guidance until the left portal vein was entered. A guidewire followed by a catheter was advanced into the portal vein which was confirmed by contrast injection. A marking pigtail catheter was then advanced into the portal vein. Simultaneous portal and hepatic venography was done to measure the length of the transhepatic tract. Pre-TIPS pressures were measured in the portal vein and right atrium. The catheter was exchanged over an extra-stiff guidewire for an 8 mm balloon which was used to pre-dilate the parenchymal tract. The long sheath (10 x 30) was advanced into the portal vein and through this, a Viatorr 10 mm x 8 cm was advanced and deployed. The stent graft was dilated using a 10 mm balloon. The pigtail catheter was re-advanced into the portal vein for post-TIPS venography and pressure measurements. The catheters were removed and hemostasis was achieved at the access site by manual compression ESTIMATED BLOOD LOSS: Minimal CONDITION: Stable condition DISCHARGED TO: ??Recovery and then to inpatient care unit FINDINGS: Initial recorded ultrasound image of the access vein showed patent right internal jugular and right femoral ??veins. The hepatic veins were patent and normal caliber. The initial portogram showed a normal caliber patent portal vein. A large gastroesophageal varix was identified. Pre-TIPS pressures were measured revealing a portal vein pressure of 30 mmHg, right atrial pressure of 12 mmHg thus giving a portosystemic gradient of 18 mmHg. After creation of the TIPS, venography showed good flow through the TIPS. Post-TIPS pressures were: portal vein pressure of 22 mmHg, right atrial pressure of 15 mmHg thus giving a portosystemic gradient of 7 mmHg. ?? IMPRESSION: 1. ??Portal hypertension successfully treated by TIPS using intravascular ultrasound with portosystemic gradient decreasing from 18 mmHg to 7 mmHg PLAN: The patient will be monitored to assess the therapeutic response as well as delayed complications. ?? Requested By: CORAZON RIOJAS M.D. Dictated By: ?? DUNG WILSON MD ??on Nov 22 2015 ??5:42P This document has been electronically signed by: NIEVES CHEW M.D. on Nov 23 2015 ??9:04A [id number] Procedure Note Provider, MD Tyler - 08/24/2016 NIEVES CHEW M.D. DUNG WILSON MD FINAL REPORT The radiology attending physician has personally reviewed this study, and has reviewed and/or edited this written report and agrees with it. ACC# Date Time Exam [id number] Nov 22, 2015 12:44:00 30688 TIPS -initial [id number] Nov 22, 2015 12:44:00 45216 [facility] Acc R [id number] Nov 22, 2015 12:44:00 36731 [facility] Chavo Acc R ACC# Date Time Exam [id number] Nov 22, 2015 12:44:00 04859 TIPS -initial [id number] Nov 22, 2015 12:44:00 56781 [facility] Chavo Acc R [id number] Nov 22, 2015 12:44:00 34484 [facility] Chavo Acc R EXAMINATION: TRANSJUGULAR INTRAHEPATIC PORTOSYSTEMIC SHUNT PLACEMENT PROCEDURE: 1. US guided access of the right internal jugular vein and right common femoral vein 2. Transjugular intrasystemic portosystemic shunt creation (TIPS) using intravascular ultrasound 3. Stent deployment into the newly created shunt ([place] [employer] TIPS Endoprothesis 10 mm x 8 cm x 2 cm) with stent dilation to 10 mm 4. 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 Chew, the attending radiologist, was present from the beginning to the end of the procedure. SEDATION: The procedure was done under General Anesthesia. TECHNIQUE: The risks, benefits and alternatives were discussed and informed consent was obtained. Prior to beginning the procedure, [place] Protocol was performed to confirm the patient's identity and the planned procedure. The fluoroscopy time has been recorded in the electronic medical record. Maximum sterile barriers including cap, mask, hand hygiene, sterile gloves, sterile gown, large sterile drape and 2% chlorhexidine for cutaneous antisepsis were used. The skin over the right internal jugular access site was infiltrated with 1% lidocaine. The vein was accessed using real-time ultrasound guidance. A wire was advanced centrally followed by placement of a 10 grenadian vascular sheath. Using fluoroscopic guidance, a Lev catheter was advanced into the middle hepatic vein. The skin over the right femoral vein access site was infiltrated with 1% lidocaine. The vein was accessed using real-time ultrasound guidance. A wire was advanced centrally followed by placement of a 10 grenadian vascular sheath. Using fluoroscopic guidance, a [employer] intravascular ultrasound was advanced into the hepatic into the vena cava to visualize the middle hepatic vein and left portal vein. Over an Amplatz wire the Lev catheter from the internal jugular vein access was exchanged for a Colapinto needle. Passes were made across the liver parenchyma under intravascular ultrasound and fluoroscopic guidance until the left portal vein was entered. A guidewire followed by a catheter was advanced into the portal vein which was confirmed by contrast injection. A marking pigtail catheter was then advanced into the portal vein. Simultaneous portal and hepatic venography was done to measure the length of the transhepatic tract. Pre-TIPS pressures were measured in the portal vein and right atrium. The catheter was exchanged over an extra-stiff guidewire for an 8 mm balloon which was used to pre-dilate the parenchymal tract. The long sheath (10 x 30) was advanced into the portal vein and through this, a Viatorr 10 mm x 8 cm was advanced and deployed. The stent graft was dilated using a 10 mm balloon. The pigtail catheter was re-advanced into the portal vein for post-TIPS venography and pressure measurements. The catheters were removed and hemostasis was achieved at the access site by manual compression ESTIMATED BLOOD LOSS: Minimal CONDITION: Stable condition DISCHARGED TO: Recovery and then to inpatient care unit FINDINGS: Initial recorded ultrasound image of the access vein showed patent right internal jugular and right femoral veins. The hepatic veins were patent and normal caliber. The initial portogram showed a normal caliber patent portal vein. A large gastroesophageal varix was identified. Pre-TIPS pressures were measured revealing a portal vein pressure of 30 mmHg, right atrial pressure of 12 mmHg thus giving a portosystemic gradient of 18 mmHg. After creation of the TIPS, venography showed good flow through theTIPS. Post-TIPS pressures were: portal vein pressure of 22 mmHg, right atrial pressure of 15 mmHg thus giving a portosystemic gradient of 7 mmHg. IMPRESSION: 1. Portal hypertension successfully treated by TIPS using intravascular ultrasound with portosystemic gradient decreasing from 18 mmHg to 7 mmHg PLAN: The patient will be monitored to assess the therapeutic response as well as delayed complications. Requested By: CORAZON RIOJAS M.D. Dictated By: DUNG WILSON MD on Nov 22 2015 5:42P This document has been electronically signed by: NIEVES CHEW M.D. on Nov 23 2015 9:04A [id number] us Historical Provider MD PATEL US PROCEDURES Final R esult * All Microbiology Report Section (11/20/2015 12:00 AM CDT) 11/20/2015 Narrative CDR HISTORICAL RESULTS - 11/25/2015 6:28 AM CDT ? [facility] ?[address] [facility] [address] ?[place], [place] [address] ? Patient Name: ??CAMILO CURRY ? Med Rec Number: [id number] ? Fin Number: ?[id number] ? Date: ?1970 ? Sex/Age: ? Male 45 years ? Admit Date: ?11/18/2015 ? Discharge Date: 11/23/2015 ? Doctor: ?Jannet Lockwood ? Facility: ?[facility] ? Location: ?[id number] ?* Abnormal ??A Alert ??f Footnote ??^ Corrected ??L Low ??H High ?i Interp Data ??@ Ref Lab ? Chart Type:Cumulative ?* * * * MICROBIOLOGY - MOLECULAR TESTING * * * * ?PROCEDURE: Respiratory Pathogen Multiplex PCR ? SOURCE: Sputum ? COLLECTED: 11/20/15 ??1337 ?BODY SITE: ? STARTED: 11/20/15 ??1627 ? FREE TEXT SOURCE: ? FINAL REPORT ? REPORTED: 11/20/15 1843 ? Respiratory Pathogen nucleic acids NOT DETECTED (NEGATIVE) ?* * * ??Interpretive Results ??* * * ? (1)The [employer] (formerly known as [employer]) ? FilmArray Respiratory Panel (RP) assay is a multiplexed nucleic ? acid test capable of simultaneous qualitative detection and ? identification of multiple respiratory viral and bacterial ? nucleic acids. ??The following bacteria, viruses and virus ? subtypes can be identified using the FilmArray RP assay: ? Bordetella pertussis, Chlamydophila pneumoniae, Mycoplasma ? pneumoniae, Adenovirus, Coronavirus HKU1, Coronavirus NL63, ? Coronavirus 229E, Coronavirus OC43, Influenza A, Influenza A ? subtype H1, Influenza A subtype H3, Influenza A subtype 2009 H1, ? Influenza B, Metapneumovirus, Parainfluenza 1, Parainfluenza 2, ? Parainfluenza 3, Parainfluenza 4, RSV, Rhinovirus/Enterovirus. ? Due to the genetic similarity between human Rhinovirus and ? Enterovirus, the FilmArray RP assay cannot reliably ? differentiate them. Coronavirus OC43 may cross-react with some ? isolates of Coronavirus HKU1. ??A dual positive result may be due ? to cross-reactivity or may indicate a co-infection.A version of ? the FilmArray RP assay updated to include an additional ? adenovirus assay was approved by the FDA in June,. ??The ? updated version has demonstrated improved detection of ? adenoviruses relative to the previous version. ??All of the other ? assays for the 20 targets are unchanged. ??The detection and ? identification of specific viral and bacterial nucleic acids ? from individuals exhibiting signs and symptoms of a respiratory ? infection aids in the diagnosis of respiratory infection if used ? in conjunction with other clinical and epidemiological ? information. ??The results of this test should not be used as the ? sole basis for diagnosis, treatment, or other management ? decisions. ??Negative results in the setting of a respiratory ? illness may be due to infection with pathogens that are not ? detected by this test. ??Positive results do not rule out ? infection/co-infection with other organisms. ??The agent(s) ? detected by the FilmArray RP may not be the definite cause of ? disease. ??Additional testing (lab, imaging, etc) may be ? necessary when evaluating a patient with possible respiratory ? tract infection.The FilmArray RP assay is FDA cleared for PHARMACY BENEFITS COORDINATOR ? swabs. ??Additional sample types have been validated according to ? CLIA regulations. ??The performance characteristics of this assay ? have been determined by [facility] ? Lab.Current interpretive data was last revised on 2013. ? us Historical Provider LAB MICROBIOLOGY - GENERA L ORDERABLES Final Result CDR HISTORICAL RESULTS * XR Chest 1 View (11/19/2015 9:39 AM CDT) Anatomical Region Laterality Modality Body, Chest N/A Radiographic Aruna ging 11/19/2015 9:39 AM CDT Narrative 11/19/2015 11:27 AM CDT LAI BRITO M.D. MAYRA CALLE M.D. FINAL REPORT The radiology attending physician has personally reviewed this study, and has reviewed and/or edited this written report and agrees with it. ACC# ??Date Time ??Exam [id number] Nov 19, 2015 09:39:00 [id number] Chest 1 view Frontal EXAMINATION: ?? Chest one view IMPRESSION: ?? Comparison study from [facility] is dated 11/03/2015. Small lung volumes. Mild left basilar and minimal right basilar atelectasis. No pneumothorax or pleural effusion. No focal consolidation. The cardiomediastinal silhouette is stable. Requested By: Dictated By: ?? MAYRA CALLE M.D. ??on Nov 19 2015 10:51A This document has been electronically signed by: LAI BRITO M.D. on Nov 19 2015 11:27A [id number] Procedure Note Provider, Historical, - 04/23/2017 LAI BRITO M.D. MAYRA CALLE M.D. FINAL REPORT The radiology attending physician has personally reviewed this study, and has reviewed and/or edited this written report and agrees with it. ACC# Date Time Exam [id number] Nov 19, 2015 09:39:00 [id number] Chest 1 view Frontal EXAMINATION: Chest one view IMPRESSION: Comparison study from [facility] is dated 11/03/2015. Small lung volumes. Mild left basilar and minimal right basilar atelectasis. No pneumothorax or pleural effusion. No focal consolidation. The cardiomediastinal silhouette is stable. Requested By: Dictated By: MAYRA CALLE M.D. on Nov 19 2015 10:51A This document has been electronically signed by: LAI BRITO M.D. on Nov 19 2015 11:27A [id number] us Historical Provider [facility] XR PROCEDURES Final R esult * All Microbiology Report Section (11/19/2015 12:00 AM CDT) 11/19/2015 Narrative CDR HISTORICAL RESULTS - 11/25/2015 6:28 AM CDT ? [facility] ?[address] [facility] [place] ?[place], [place] [address] ? Patient Name: ??CAMILO CURRY ? Med Rec Number: [id number] ? [facility] Number: ?[id number] ? Date: ?1970 ? Sex/Age: ? Male 45 years ? Admit Date: ?11/18/2015 ? Discharge Date: 11/23/2015 ? Doctor: ?Svancarek , Jannet B ? Facility: ?[facility] ? Location: ?0101 [id number] 02 ?* Abnormal ??A Alert ??f Footnote ??^ Corrected ??L Low ??H High ?i Interp Data ??@ Ref Lab ? Chart Type:Cumulative ?* * * * MICROBIOLOGY - BLOOD/STERILE FLUID * * * * ?PROCEDURE: Culture, Blood ? SOURCE: Blood ? COLLECTED: 07/18/16 ??0440 ?BODY SITE: Antecubital, left ? STARTED: 07/18/16 ??0603 ? FREE TEXT SOURCE: ? FINAL REPORT ? REPORTED: 11/25/15 0355 ? No growth ?* * * ??Interpretive Results ??* * * ? (1)Blood cultures are incubated for five days on a continuously ? monitored blood culture system. ??The first report of a negative ? culture is issued within 24 hours of receipt of the specimen in ? the laboratory. ??Positive culture results are reported as soon ? as they are detected. ??For blood cultures with gram-positive ? cocci, a rapid molecular test for organism identification may be ? performed using the [employer] Nanosphere Gram Positive Blood ? Culture Assay. ??The Nanosphere assay detects microbial DNA in ? positive blood culture broth via hybridization of target DNA to ? capture oligonucleotides on a microarray. ??This assay has been ? cleared by the [place] Food and Drug Administration and ? its performance characteristics have been verified by the ? [facility].Current ? Interpretive Data was last revised on 2013. ? us Historical Provider MD LAB MICROBIOLOGY - GENERA L ORDERABLES Final Result CDR HISTORICAL RESULTS * All Microbiology Report Section (11/19/2015 12:00 AM CDT) 11/19/2015 Narrative CDR HISTORICAL RESULTS - 11/25/2015 6:28 AM CDT ? [facility] ?[address] [facility] [place] [facility] [address] ? Patient Name: ??CAMILO CURRY ? Med Rec Number: [id number] ? Fin Number: ?[id number] ? Date: ?1970 ? Sex/Age: ? Male 45 years ? Admit Date: ?11/18/2015 ? Discharge Date: 11/23/2015 ? Doctor: ?Jannet Lockwood B ? Facility: ?[facility] ? Location: ?0101 [address] 02 ?* Abnormal ??A Alert ??f Footnote ??^ Corrected ??L Low ??H High ?i Interp Data ??@ Ref Lab ? Chart Type:Cumulative ?* * * * MICROBIOLOGY - BLOOD/STERILE FLUID * * * * ?PROCEDURE: Culture, Blood ? SOURCE: Blood ? COLLECTED: 11/19/15 ??0440 ?BODY SITE: Arm, right ? STARTED: 11/19/15 ??04 ? FREE TEXT SOURCE: ? FINAL REPORT ? REPORTED: 11/25/15 0355 ? No growth ?* * * ??Interpretive Results ??* * * ? (1)Blood cultures are incubated for five days on a continuously ? monitored blood culture system. ??The first report of a negative ? culture is issued within 24 hours of receipt of the specimen in ? the laboratory. ??Positive culture results are reported as soon ? as they are detected. ??For blood cultures with gram-positive ? cocci, a rapid molecular test for organism identification may be ? performed using the [employer] Nanosphere Gram Positive Blood ? Culture Assay. ??The Nanosphere assay detects microbial DNA in ? positive blood culture broth via hybridization of target DNA to ? capture oligonucleotides on a microarray. ??This assay has been ? cleared by the [place] Food and Drug Administration and ? its performance characteristics have been verified by the ? [facility].Current ? Interpretive Data was last revised on 2013. ? us Historical Provider LAB MICROBIOLOGY - GENERA L ORDERABLES Final Result CDR HISTORICAL RESULTS * UPPER GASTROINTESTINAL ENDOSCOPY REPORT (11/19/2015) Anatomical Region Laterality Modality Other Narrative 11/19/2015 Ordered by an unspecified provider. Result [facility] Historical Provider GI PROCEDURE ORDERABLES F inal Result * ELECTROCARDIOGRAPHY (ECG) (11/19/2015) Narrative 11/19/2015 Ordered by an unspecified provider. Result [facility] Provider ECG ORDERABLES Final Res ult * Blood glucose, POC (11/09/2015 7:58 AM CDT) [facility] Glucose, POC, bld 117 70 - 199 mg/dl HISTORICAL RESULTS Blood specimen (specimen) 11/09/2015 7:58 AM CDT Result [facility] Kisha Quezada MD LAB BLOOD ORDERABLES Anastasiya l Result HISTORICAL RESULTS * DISCHARGE LABORATORY CUMULATIVE REPORT (11/09/2015) Narrative 11/09/2015 Ordered by an unspecified provider. Result [facility] Camilo RED LAB BLOOD ORDERABLES Anastasiya l Result * (ABNORMAL) Blood cell count (CBC) (11/08/2015 9:08 PM CDT) [facility] WBC 3.0(L) 3.8 - 9.9 K/cumm HISTORICAL RESULTS RBC 4.41 4.30 - 5.80 M/cumm HISTORICAL RESULTS Hgb 11.3(L) 13.0 - 17.5 g/dl HISTORICAL RESULTS Hct 35.7(L) 38.9 - 50.3 % HISTORICAL RESULTS MCV 81.0(L) 81.3 - 96.4 fl HISTORICAL RESULTS MCH 25.6(L) 27.1 - 33.3 pg HISTORICAL RESULTS MCHC 31.7(L) 32.3 - 35.7 g/dl HISTORICAL RESULTS Rdw 16.1(H) 11.1 - 14.9 % HISTORICAL RESULTS RDW 47.3 35.7 - 48.1 fl HISTORICAL RESULTS Platelets 58(L) 150 - 400 K/cumm HISTORICAL RESULTS MPV 11.9 9.1 - 12.3 fl HISTORICAL RESULTS NRBC 0.0 0.0 - 0.2 % HISTORIC AL RESULTS NRBC, abs 0.00 0.00 - 0.01 K/cumm HISTORICAL RESULTS Blood specimen (specimen) 11/08/2015 9:08 PM CDT Result [facility] Marian Ayala MD LAB BLOOD ORDERABLES Final R esult HISTORICAL RESULTS * (ABNORMAL) Blood cell morphologic exam (11/08/2015 9:08 PM CDT) Neutrophils 68.0 % HISTORIC AL RESULTS Immature granulocytes 0.3 % HISTORICAL RESULTS Lymphocytes 18.2 % HISTORIC AL RESULTS Monos 9.8 % HISTORICAL RESULTS Eosinophils 3.4 % HISTORIC AL RESULTS Basophils 0.3 % HISTORICAL RESULTS Neutrophils, abs 2.0 1.7 - 6.5 K/cumm HISTORICAL RESULTS Immature granulocyte, abs 0.0 0.0 - 0.1 K/cumm HISTORICAL RESULTS Lymphocytes, abs 0.5(L) 0.8 - 3.3 K/cumm HISTORICAL RESULTS Monocytes, absolute 0.3 0.2 - 0.8 K/cumm HISTORICAL RESULTS Eosinophils, abs 0.1 0.0 - 0.5 K/cumm HISTORICAL RESULTS Basophils, abs 0.0 0.0 - 0.1 K/cumm HISTORICAL RESULTS Blood specimen (specimen) 11/08/2015 9:08 PM CDT Result [facility] Marian Ayala MD LAB BLOOD ORDERABLES Final R esult Performing Organization Address [facility] Co de Phone Number HISTORICAL RESULTS * Blood glucose, POC (11/08/2015 8:22 PM CDT) Glucose, POC, bld 187 70 - 199 mg/dl HISTORICAL RESULTS Blood specimen (specimen) 11/08/2015 8:22 PM CDT Result [facility] Kisha Quezada MD LAB BLOOD ORDERABLES Anastasiya l Result HISTORICAL RESULTS * Blood glucose, POC (11/08/2015 4:59 PM CDT) Glucose, POC, bld 113 70 - 199 mg/dl HISTORICAL RESULTS Blood specimen (specimen) 11/08/2015 4:59 PM CDT Kisha Quezada MD LAB BLOOD ORDERABLES Anastasiya l Result Performing Organization Address [facility] Co de Phone Number HISTORICAL RESULTS * Blood glucose, POC (11/08/2015 1:38 PM CDT) Glucose, POC, bld 109 70 - 199 mg/dl HISTORICAL RESULTS Blood specimen (specimen) 11/08/2015 1:38 PM CDT Kisha Quezada MD LAB BLOOD ORDERABLES Anastasiya l Result Performing Organization Address [facility] de Phone Number HISTORICAL RESULTS * (ABNORMAL) Plasma prothrombin time (PT) (11/08/2015 10:45 AM CDT) Pathologist [facility] Prothrombin time (PT) 14.0(H) 9.2 - 13.0 seconds HISTORICAL RESULTS INR 1.29(H) 0.90 - 1.20 HISTORIC AL RESULTS Comment: Interpretive Data Inpatient therapeutic ranges* Atrial fibrillation ?2.0-3.0 INR Venous thrombo-embolism ?2.0-3.0 INR Bioprosthetic heart valve ?* Mechanical heart valve, bileaflet or tilting disk,aortic position ? 2.0-3.0 INR All other,or bileaflet or tilting disk, in mitral position ? 2.5-3.5 INR *See the pharmacy resource directory (PHRED) for an updated copy of the Tool Book at [email or web address] Current Interpretive Data was last revised 2011. Plasma 11/08/2015 10:4 5 AM CDT Marian Ayala MD LAB BLOOD ORDERABLES Final R [facility] Performing Organization Address [facility] Co de Phone Number HISTORICAL RESULTS * (ABNORMAL) Blood cell count (CBC) (11/08/2015 10:45 AM CDT) WBC 2.5(L) 3.8 - 9.9 K/cumm HISTORICAL RESULTS RBC 4.34 4.30 - 5.80 M/cumm HISTORICAL RESULTS Hgb 10.9(L) 13.0 - 17.5 g/dl HISTORICAL RESULTS Hct 35.4(L) 38.9 - 50.3 % HISTORICAL RESULTS MCV 81.6 81.3 - 96.4 fl HISTORICAL RESULTS MCH 25.1(L) 27.1 - 33.3 pg HISTORICAL RESULTS MCHC 30.8(L) 32.3 - 35.7 g/dl HISTORICAL RESULTS Rdw 16.2(H) 11.1 - 14.9 % HISTORICAL RESULTS RDW 47.4 35.7 - 48.1 fl HISTORICAL RESULTS Platelets 54(L) 150 - 400 K/cumm HISTORICAL RESULTS MPV 11.9 9.1 - 12.3 fl HISTORICAL RESULTS NRBC 0.0 0.0 - 0.2 % HISTORIC AL RESULTS NRBC, abs 0.00 0.00 - 0.01 K/cumm HISTORICAL RESULTS Blood specimen (specimen) 11/08/2015 10:45 AM CDT Marian Ayala MD LAB BLOOD ORDERABLES Final R ult Performing Organization Address City/State/[facility] Co de Phone Number HISTORICAL RESULTS * (ABNORMAL) Blood cell morphologic exam (11/08/2015 10:45 AM CDT) Neutrophils 65.1 % HISTORIC AL RESULTS Immature granulocytes 0.4 % HISTORICAL RESULTS Lymphocytes 20.2 % HISTORIC AL RESULTS Monos 11.1 % HISTORICAL RESULTS Eosinophils 2.4 % HISTORIC AL RESULTS Basophils 0.8 % HISTORICAL RESULTS Neutrophils, abs 1.6(L) 1.7 - 6.5 K/cumm HISTORICAL RESULTS Immature granulocyte, abs 0.0 0.0 - 0.1 K/cumm HISTORICAL RESULTS Lymphocytes, abs 0.5(L) 0.8 - 3.3 K/cumm HISTORICAL RESULTS Monocytes, absolute 0.3 0.2 - 0.8 K/cumm HISTORICAL RESULTS Eosinophils, abs 0.1 0.0 - 0.5 K/cumm HISTORICAL RESULTS Basophils, abs 0.0 0.0 - 0.1 K/cumm HISTORICAL RESULTS Blood specimen (specimen) 11/08/2015 10:45 AM CDT Marian Ayala MD LAB BLOOD ORDERABLES Final R esult HISTORICAL RESULTS * Blood glucose, POC (11/08/2015 7:56 AM CDT) [facility] Glucose, POC, bld 131 70 - 199 mg/dl HISTORICAL RESULTS Blood specimen (specimen) 11/08/2015 7:56 AM CDT Kisha Quezada MD LAB BLOOD ORDERABLES Anastasiya l Result Performing Organization Address City/[facility]/ZIP Co de Phone Number HISTORICAL RESULTS * ABDOMINAL RADIOGRAPHY, FRONTAL (AP) (11/08/2015 6:15 AM CDT) Anatomical Region Laterality Modality N/A Radiographic Aruna ging 11/08/2015 6:15 AM CDT Narrative 11/08/2015 10:38 AM CDT BERNARDINO FRIEDMAN M.D. PAM FITZPATRICK M.D. FINAL REPORT The radiology attending physician has personally reviewed this study, and has reviewed and/or edited this written report and agrees with it. ACC# ??Date Time ??Exam [id number] Nov 08, 2015 06:15:00 [id number] Abdomen single view AP EXAMINATION: ?Abdomen single view AP HISTORY: ??Recent EGD with severe abdominal pain FINDINGS: ?? One view of the abdomen is submitted over 2 exposures with comparison to 08/24/2015. The visualized bowel gas pattern is normal. There is splenomegaly. IMPRESSION: ?? Normal gas pattern with splenomegaly. Requested By: KISHA QUEZADA M.D. Dictated By: ?? PAM FITZPATRICK M.D. ??on Nov ??2015 ??9:15A This document has been electronically signed by: BERNARDINO FRIEDMAN M.D. on Nov 08 2015 10:38A [id number] Procedure Note Provider, [place], - 08/24/2016 BERNARDINO FRIEDMAN M.D. PAM FITZPATRICK M.D. FINAL REPORT The radiology attending physician has personally reviewed this study, and has reviewed and/or edited this written report and agrees with it. ACC# Date Time Exam [id number] Nov 08, 2015 06:15:00 [id number] Abdomen single view AP EXAMINATION: Abdomen single view AP HISTORY: Recent EGD with severe abdominal pain FINDINGS: One view of the abdomen is submitted over 2 exposures with comparison to 08/24/2015. The visualized bowel gas pattern is normal. There is splenomegaly. IMPRESSION: Normal gas pattern with splenomegaly. Requested By: KISHA QUEZADA M.D. Dictated By: PAM FITZPTARICK M.D. on Nov 08 2015 9:15A This document has been electronically signed by: BERNARDINO FRIEDMAN M.D. on Nov 08 2015 10:38A [id number] us Historical Provider IMG XR PROCEDURES Final R esult * (ABNORMAL) Blood cell count [CBC] express (11/08/2015 3:12 AM CDT) WBC 2.4(L) 3.8 - 9.9 K/cumm HISTORICAL RESULTS RBC 4.20(L) 4.30 - 5.80 M/cumm HISTORICAL RESULTS Hgb 10.8(L) 13.0 - 17.5 g/dl HISTORICAL RESULTS Hct 33.8(L) 38.9 - 50.3 % HISTORICAL RESULTS MCV 80.5(L) 81.3 - 96.4 fl HISTORICAL RESULTS MCH 25.7(L) 27.1 - 33.3 pg HISTORICAL RESULTS MCHC 32.0(L) 32.3 - 35.7 g/dl HISTORICAL RESULTS Rdw 16.2(H) 11.1 - 14.9 % HISTORICAL RESULTS RDW 46.5 35.7 - 48.1 fl HISTORICAL RESULTS NRBC 0.0 0.0 - 0.2 % HISTORIC AL RESULTS NRBC, abs 0.00 0.00 - 0.01 K/cumm HISTORICAL RESULTS Platelets 50(L) 150 - 400 K/cumm HISTORICAL RESULTS MPV 11.7 9.1 - 12.3 fl HISTORICAL RESULTS Blood specimen (specimen) 11/08/2015 3:12 AM CDT Result [facility] Kisha Quezada MD LAB BLOOD ORDERABLES Anastasiya l Result Performing Organization Address City/[facility] Co de Phone Number HISTORICAL RESULTS * Blood glucose, POC (11/08/2015 12:06 AM CDT) Pathologist [facility] Glucose, POC, bld 94 70 - 199 mg/dl HISTORICAL RESULTS Blood specimen (specimen) 11/08/2015 12:06 AM CDT Result [facility] Kisha Quezada MD LAB BLOOD ORDERABLES Anastasiya l Result Performing Organization Address [facility] Co de Phone Number HISTORICAL RESULTS * UPPER GASTROINTESTINAL ENDOSCOPY REPORT (11/08/2015) Anatomical Region Laterality Modality Other Narrative 11/08/2015 Ordered by an unspecified provider. Result [facility] Historical Provider GI PROCEDURE ORDERABLES F inal Result * Blood check sample (11/07/2015 7:49 PM CDT) Pathologist [facility] ABO, Rho(D) A Positive HISTORI AGUILA RESULTS Blood specimen (specimen) 11/07/2015 7:49 PM CDT Historical Provider LAB BLOOD ORDERABLES Anastasiya l Result Performing Organization Address City/[facility] Co de Phone Number HISTORICAL RESULTS * Plasma hepatic function panel (11/07/2015 7:25 PM CDT) Pathologist [facility] Protein, pl 8.1 6.5 - 8.5 g/dl HISTORICAL RESULTS Alb 4.3 3.5 - 5.0 g/dl HISTORICAL RESULTS Bilirubin 0.9 0.1 - 1.2 mg/dl HISTORICAL RESULTS Bilirubin, direct 0.2 0.1 - 0.3 mg/dl HISTORICAL RESULTS Alk phos 91 40 - 130 Units/L HISTORICAL RESULTS AST 48 10 - 50 Units/L HISTORICAL RESULTS ALT 44 7 - 55 Units/L HISTORICAL RESULTS Plasma 11/07/2015 7:25 PM CDT us Mario Ren MD LAB BLOOD ORDERABLES Final Res ult HISTORICAL RESULTS * (ABNORMAL) Serum lipid panel (11/07/2015 7:25 PM CDT) Cholesterol 135 30 - 200 mg/dl HISTORICAL RESULTS Comment: Interpretive Data Desirable: ?<200 mg/dL Borderline high: ??200-239 mg/dL High: ? > or = 240 mg/dL Literature Reference: National Cholesterol Education Program (NCEP) Expert Panel on Detection, Evaluation, and Treatment of High Blood Cholesterol in Adults (Adult Treatment Panel III). ??Circulation 2004; 110:227. Current interpretive data was last revised on 2015. HDL 32(L) >=40 mg/dl HISTORICA L RESULTS Comment: Interpretive Data Less than 40 mg/dL - low; A major risk factor for heart disease. Greater than or equal to 60 mg/dL - High; ??considered protective of heart disease. Literature Reference: See Cholesterol Current interpretive data was last revised on 2015. LDL 78 10 - 129 mg/dl HISTORICAL RESULTS Comment: Interpretive Data Optimal: ? < 100 mg/dL Near Optimal: ?100 - 129 mg/dL Borderline High: ?? 130 - 159 mg/dL High: ?160 - 189 mg/dL Very high: ? > or = 190 mg/dL Literature Reference: See Cholesterol Current interpretive data was last revised on 2015. Non-HDL cholesterol, calculated 103 mg/dl HISTORICAL RESULTS Comment: Interpretive Data When triglycerides are >200 mg/dL, non-HDL C is a secondary target of therapy, with a goal 30 mg/dL higher than the identified LDL-C goal. Reference: ??See Cholesterol Reference. Current interpretive data was last revised 2015. Triglycerides 126 0 - 150 mg/dl HISTORICAL RESULTS Comment: Interpretive Data Desirable: ? < 150 mg/dL Borderline High: ? 150 - 199 mg/dL High: ?200 - 499 mg/dL Very High: ? > or = 499 mg/dL Literature Reference: See Cholesterol Current interpretive data was last revised on 2015. Serum 11/07/2015 7:25 PM CDT Mario Ren MD LAB BLOOD ORDERABLES Final Res ult Performing Organization Address [facility] de Phone Number HISTORICAL RESULTS * Plasma basic metabolic panel (11/07/2015 7:25 PM CDT) Sodium 142 135 - 145 mmol/L HISTORICAL RESULTS K, pl 4.1 3.3 - 4.9 mmol/L HISTORICAL RESULTS Chloride 105 97 - 110 mmol/L HISTORICAL RESULTS CO2 27 22 - 32 mmol/L HISTORICAL RESULTS A. gap 10 2 - 15 mmol/L HISTORICAL RESULTS Glucose 96 70 - 199 mg/dl HISTORICAL RESULTS BUN 10 8 - 25 mg/dl HISTORICAL RESULTS Creatinine 1.06 0.80 - 1.30 mg/dl HISTORICAL RESULTS Calcium 9.4 8.5 - 10.3 mg/dl HISTORICAL RESULTS Plasma 11/07/2015 7:25 PM CDT Mario Ren MD LAB BLOOD ORDERABLES Final Res ult Performing Organization Address [facility] de Phone Number HISTORICAL RESULTS * (ABNORMAL) Blood cell count (CBC) (11/07/2015 7:25 PM CDT) WBC 5.0 3.8 - 9.9 K/cumm HISTORICAL RESULTS RBC 4.93 4.30 - 5.80 M/cumm HISTORICAL RESULTS Hgb 12.4(L) 13.0 - 17.5 g/dl HISTORICAL RESULTS Hct 39.8 38.9 - 50.3 % HISTORICAL RESULTS MCV 80.7(L) 81.3 - 96.4 fl HISTORICAL RESULTS MCH 25.2(L) 27.1 - 33.3 pg HISTORICAL RESULTS MCHC 31.2(L) 32.3 - 35.7 g/dl HISTORICAL RESULTS Rdw 16.1(H) 11.1 - 14.9 % HISTORICAL RESULTS RDW 46.6 35.7 - 48.1 fl HISTORICAL RESULTS Platelets 79(L) 150 - 400 K/cumm HISTORICAL RESULTS MPV 11.8 9.1 - 12.3 fl HISTORICAL RESULTS NRBC 0.0 0.0 - 0.2 % HISTORIC AL RESULTS NRBC, abs 0.00 0.00 - 0.01 K/cumm HISTORICAL RESULTS Blood specimen (specimen) 11/07/2015 7:25 PM CDT Mario Ren MD LAB BLOOD ORDERABLES Final Res ult Performing Organization Address [facility] de Phone Number HISTORICAL RESULTS * Blood ABO, Rh, indirect ab screen (11/07/2015 7:25 PM CDT) ABO, Rho(D) A Positive HISTORI AGUILA RESULTS Steve, indirect Negative HISTORICAL RESULTS Blood specimen (specimen) 11/07/2015 7:25 PM CDT Mario Ren MD LAB BLOOD ORDERABLES Final Res ult Performing Organization Address [facility] de Phone Number HISTORICAL RESULTS * Blood cell morphologic exam (11/07/2015 7:25 PM CDT) Neutrophils 69.3 % HISTORIC AL RESULTS Immature granulocytes 0.6 % HISTORICAL RESULTS Lymphocytes 16.3 % HISTORIC AL RESULTS Monos 11.0 % HISTORICAL RESULTS Eosinophils 2.4 % HISTORIC AL RESULTS Basophils 0.4 % HISTORICAL RESULTS Neutrophils, abs 3.4 1.7 - 6.5 K/cumm HISTORICAL RESULTS Immature granulocyte, abs 0.0 0.0 - 0.1 K/cumm HISTORICAL RESULTS Lymphocytes, abs 0.8 0.8 - 3.3 K/cumm HISTORICAL RESULTS Monocytes, absolute 0.6 0.2 - 0.8 K/cumm HISTORICAL RESULTS Eosinophils, abs 0.1 0.0 - 0.5 K/cumm HISTORICAL RESULTS Basophils, abs 0.0 0.0 - 0.1 K/cumm HISTORICAL RESULTS Blood specimen (specimen) 11/07/2015 7:25 PM CDT us Mario Ren MD LAB BLOOD ORDERABLES Final Res ult HISTORICAL RESULTS documented in this encounter Visit Diagnoses Diagnosis Hematemesis Portal hypertension (CMS/HCC) (HCC) Portal hypertension Nonalcoholic steatohepatitis (BLAND) Esophageal varices without bleeding (CMS/HCC) (HCC) Esophageal varices without mention of bleeding Type 2 diabetes mellitus without complications (CMS/HCC) (HCC) Bipolar disorder (HCC) Bipolar disorder, unspecified Anxiety disorder Anxiety state, unspecified Personal history of nicotine dependence Family history of malignant neoplasm of digestive organ Family history of malignant neoplasm of gastrointestinal tract Other diseases of stomach and duodenum Allergy status to penicillin Other polyp of sinus Gastro-esophageal reflux disease without esophagitis documented in this encounter
--- OUTSIDE RECORDS SUMMARY | 2024-04-19 23:10 | XMS_ITS | Encounter Summary ---
Author Organization 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
--- OUTSIDE RECORDS SUMMARY | 2024-04-19 23:10 | XMS_ITS | Encounter Summary ---
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
--- OUTSIDE RECORDS SUMMARY | 2024-04-19 23:10 | XMS_ITS | Encounter Summary ---
Author Organization [facility] Facility Care Team Providers Care Environmental Engineering Aide Name Role Phone Unavailable Primary Care Provider Unavailabl e Encounter Details Date Type Department Care Team (Latest Contact Info) Description 06/01/2016 4:43 AM WOODWORKING MACHINE FEEDER - 06/02/2016 4:40 PM [facility] Hospital Encounter MERGED WITH [facility] Joel Taylor MD [address] [place] [address] Edmond Castaneda MD [address] [place] [address] Hepatic failure, without coma (CMS/HCC); Secondary esophageal varices without bleeding (CMS/HCC); Hematemesis; Type 2 diabetes mellitus with hyperglycemia (CMS/HCC); Portal hypertension (CMS/HCC); Nonalcoholic steatohepatitis (BLAND); Major depressive disorder, single episode; History of colonic polyps; Spinal stenosis; Personal history of nicotine dependence; Patient's unintentional underdosing of medication regimen for other reason; Other diseases of stomach and duodenum; Duodenitis without bleeding; longterm current use of insulin (CMS/HCC); Anxiety disorder; Family history of malignant neoplasm of digestive organ; Angiodysplasia of stomach and duodenum without bleeding; Other cirrhosis of liver (CMS/HCC); Polyp of stomach and duodenum; Abnormal weight loss; Body mass index (BMI) of 38.0-38.9 in adult Social History Tobacco Use Types Packs/Day Years Used Date Smoking Tobacco: Never Assessed Sex and Gender Information Value Date Recorded Sex Assigned at Not on file Legal Sex Male 2:52 PM WOODWORKING MACHINE FEEDER Gender Identity Male 10/29/2020 12:37 PM CDT Sexual Orientation Straight 10/29/2020 12 :37 PM CDT documented as of this encounter Last Filed Vital Signs Vital Sign Reading Time Taken Comments Blood Pressure 147/77 06/02/2016 10:16 AM WOODWORKING MACHINE FEEDER Pulse 90 06/02/2016 10:16 AM WOODWORKING MACHINE FEEDER Temperature - - Respiratory Rate - - Oxygen Saturation 100% 06/02/2016 10:16 AM WOODWORKING MACHINE FEEDER Inhaled Oxygen Concentration - - Weight 112.9 kg (248 lb 14 oz) 06/02/2016 5:00 A M WOODWORKING MACHINE FEEDER Height 172.7 cm (5' 8 ) 06/01/2016 5:16 AM WOODWORKING MACHINE FEEDER Body Mass Index 37.84 06/01/2016 5:16 AM WOODWORKING MACHINE FEEDER documented in this encounter Medications at Time [...] Procedure Name Priority Date/Time Associated Diagnosis Comments BLOOD GLUCOSE, POC Routine 06/02/2016 4: 02 PM WOODWORKING MACHINE FEEDER BLOOD GLUCOSE, POC Routine 06/02/2016 11 :29 AM WOODWORKING MACHINE FEEDER BLOOD GLUCOSE, POC Routine 06/02/2016 7: 27 AM WOODWORKING MACHINE FEEDER UPPER GASTROINTESTINAL ENDOSCOPY REPORT 06/02/2016 DISCHARGE LABORATORY CUMULATIVE REPORT 06/02/2016 PLASMA PROTHROMBIN TIME (PT) Routine 06/01/2016 8:39 PM WOODWORKING MACHINE FEEDER PLASMA COMPREHENSIVE METABOLIC PANEL Routine 06/01/2016 8:39 PM WOODWORKING MACHINE FEEDER BLOOD CELL COUNT Routine 06/01/2016 8:39 PM WOODWORKING MACHINE FEEDER BLOOD GLUCOSE, POC Routine 06/01/2016 8: 08 PM WOODWORKING MACHINE FEEDER BLOOD GLUCOSE, POC Routine 06/01/2016 4: 05 PM WOODWORKING MACHINE FEEDER BLOOD GLUCOSE, POC Routine 06/01/2016 11 :22 AM WOODWORKING MACHINE FEEDER BLOOD GLUCOSE, POC Routine 06/01/2016 8: 34 AM WOODWORKING MACHINE FEEDER VLWU DUPLEX SCAN OF AORTA; INFERIOR VENA CAVA, ILIAC, COMPLETE BILATERAL Routine 06/01/2016 8:14 AM WOODWORKING MACHINE FEEDER SERUM MAGNESIUM Routine 06/01/2016 7:03 AM WOODWORKING MACHINE FEEDER SERUM IRON PROFILE Routine 06/01/2016 7: 03 AM WOODWORKING MACHINE FEEDER SERUM FERRITIN Routine 06/01/2016 7:03 AM WOODWORKING MACHINE FEEDER SERUM CYANOCOBALAMIN (VITAMIN B12) Routine 06/01/2016 7:03 AM WOODWORKING MACHINE FEEDER PLASMA PROTHROMBIN TIME (PT) Routine 06/01/2016 7:03 AM WOODWORKING MACHINE FEEDER PLASMA PHOSPHORUS Routine 06/01/2016 7:0 3 AM WOODWORKING MACHINE FEEDER PLASMA PARTIAL THROMBOPLASTIN TIME (PTT) Routine 06/01/2016 7:03 AM WOODWORKING MACHINE FEEDER PLASMA HEPATIC FUNCTION PANEL Routine 06/01/2016 7:03 AM WOODWORKING MACHINE FEEDER PLASMA BASIC METABOLIC PANEL Routine 06/01/2016 7:03 AM WOODWORKING MACHINE FEEDER BLOOD HEMOGLOBIN A1C Routine 06/01/2016 7:03 AM WOODWORKING MACHINE FEEDER BLOOD CELL COUNT (CBC) Routine 7 7:03 AM WOODWORKING MACHINE FEEDER BLOOD ABO, RH, INDIRECT AB SCREEN Routine 06/01/2016 7:03 AM WOODWORKING MACHINE FEEDER BLOOD CELL MORPHOLOGIC EXAM Routine 06/01/2016 7:03 AM WOODWORKING MACHINE FEEDER BLOOD GLUCOSE, POC Routine 06/01/2016 5: 28 AM WOODWORKING MACHINE FEEDER ELECTROCARDIOGRAPHY (ECG) 06/01/2016 documented in this encounter Results * Blood glucose, POC (06/02/2016 4:02 PM WOODWORKING MACHINE FEEDER) Glucose, POC, bld 91 70 - 199 mg/dl CDR HISTORICAL RESULTS Blood specimen (specimen) 06/02/2016 4:02 PM WOODWORKING MACHINE FEEDER us Joel Norris MD LAB BLOOD ORDERABLES Fin al Result Performing Organization Address [facility] [[email or web address]] de Phone Number CDR HISTORICAL RESULTS * Blood glucose, POC (06/02/2016 11:29 AM WOODWORKING MACHINE FEEDER) Glucose, POC, bld 175 70 - 199 mg/dl CDR HISTORICAL RESULTS Blood specimen (specimen) 06/02/2016 11:29 AM WOODWORKING MACHINE FEEDER Joel Norris MD LAB BLOOD ORDERABLES Fin al Result Performing Organization Address [facility] Co de Phone Number CDR HISTORICAL RESULTS * Blood glucose, POC (06/02/2016 7:27 AM WOODWORKING MACHINE FEEDER) Glucose, POC, bld 110 70 - 199 mg/dl CDR HISTORICAL RESULTS Blood specimen (specimen) 06/02/2016 7:27 AM WOODWORKING MACHINE FEEDER Result [facility] Joel Norris MD LAB BLOOD ORDERABLES Fin al Result CDR HISTORICAL RESULTS * DISCHARGE LABORATORY CUMULATIVE REPORT (06/02/2016) Narrative 06/02/2016 Ordered by an unspecified provider. Historical Provider LAB BLOOD ORDERABLES Anastasiya l Result * UPPER GASTROINTESTINAL ENDOSCOPY REPORT (06/02/2016) Anatomical Region Laterality Modality Other Narrative 06/02/2016 Ordered by an unspecified provider. Result [facility] Historical Provider GI PROCEDURE ORDERABLES F inal Result * (ABNORMAL) Plasma comprehensive metabolic panel (06/01/2016 8:39 PM WOODWORKING MACHINE FEEDER) Sodium 141 135 - 145 mmol/L CDR HISTORICAL RESULTS K, pl 4.1 3.3 - 4.9 mmol/L CDR HISTORICAL RESULTS CO2 24 22 - 32 mmol/L CDR HISTORICAL RESULTS BUN 13 8 - 25 mg/dl CDR HISTORICAL RESULTS Glucose 145 70 - 199 mg/dl CDR HISTORICAL RESULTS Creatinine 0.87 0.80 - 1.30 mg/dl CDR HISTORICAL RESULTS Calcium 8.7 8.5 - 10.3 mg/dl CDR HISTORICAL RESULTS Chloride 104 97 - 110 mmol/L CDR HISTORICAL RESULTS Alb 3.7 3.5 - 5.0 g/dl CDR HISTORICAL RESULTS AST 38 10 - 50 Units/L CDR HISTORICAL RESULTS ALT 30 7 - 55 Units/L CDR HISTORICAL RESULTS Alk phos 86 40 - 130 Units/L CDR HISTORICAL RESULTS Bilirubin 2.3(H) 0.1 - 1.2 mg/dl CDR HISTORICAL RESULTS Protein, pl 6.7 6.5 - 8.5 g/dl CDR HISTORICAL RESULTS A. gap 13 2 - 15 mmol/L CDR HISTORICAL RESULTS Plasma 06/01/2016 8:39 PM WOODWORKING MACHINE FEEDER Result [facility] Vicente Drew MD LAB BLOOD ORDERABLES Final Result CDR HISTORICAL RESULTS * (ABNORMAL) Plasma prothrombin time (PT) (06/01/2016 8:39 PM WOODWORKING MACHINE FEEDER) Prothrombin time (PT) 14.2(H) 9.2 - 14.0 seconds CDR HISTORICAL RESULTS INR 1.24(H) 0.81 - 1.22 CDR HIST ORICAL RESULTS Comment: Interpretive Data Inpatient therapeutic ranges* Atrial fibrillation ?2.0-3.0 INR Venous thrombo-embolism ?2.0-3.0 INR Bioprosthetic heart valve ?* Mechanical heart valve, bileaflet or tilting disk,aortic position ? 2.0-3.0 INR All other,or bileaflet or tilting disk, in mitral position ? 2.5-3.5 INR *See the pharmacy resource directory (PHRED) for an updated copy of the Tool Book at [email or web address] Current Interpretive Data was last revised 2011. Plasma 06/01/2016 8:39 PM WOODWORKING MACHINE FEEDER us Vicente Drew MD LAB BLOOD ORDERABLES Final Result CDR HISTORICAL RESULTS * (ABNORMAL) Blood cell count [CBC] express (06/01/2016 8:39 PM WOODWORKING MACHINE FEEDER) Pathologist [facility] WBC 5.0 3.8 - 9.9 K/cumm CDR HISTORICAL RESULTS RBC 4.55 4.30 - 5.80 M/cumm CDR HISTORICAL RESULTS Hgb 13.0 13.0 - 17.5 g/dl CDR HISTORICAL RESULTS Hct 37.0(L) 38.9 - 50.3 % CDR HISTORICAL RESULTS MCV 81.3 81.3 - 96.4 fl CDR HISTORICAL RESULTS MCH 28.6 27.1 - 33.3 pg CDR HISTORICAL RESULTS MCHC 35.1 32.3 - 35.7 g/dl CDR HISTORICAL RESULTS Rdw 15.3(H) 11.1 - 14.9 % CDR HISTORICAL RESULTS RDW 43.9 35.7 - 48.1 fl CDR HISTORICAL RESULTS NRBC 0.0 0.0 - 0.2 % CDR HIST ORICAL RESULTS NRBC, abs 0.00 0.00 - 0.01 K/cumm CDR HISTORICAL RESULTS Platelets 81(L) 150 - 400 K/cumm CDR HISTORICAL RESULTS MPV 10.6 9.1 - 12.3 fl CDR HISTORICAL RESULTS Blood specimen (specimen) 06/01/2016 8:39 PM WOODWORKING MACHINE FEEDER Vicente Drew MD LAB BLOOD ORDERABLES Final Result Performing Organization Address [facility] [[email or web address]] de Phone Number CDR HISTORICAL RESULTS * Blood glucose, POC (06/01/2016 8:08 PM WOODWORKING MACHINE FEEDER) Glucose, POC, bld 129 70 - 199 mg/dl CDR HISTORICAL RESULTS Blood specimen (specimen) 06/01/2016 8:08 PM WOODWORKING MACHINE FEEDER Joel Norris MD LAB BLOOD ORDERABLES Fin al Result Performing Organization Address [facility] [[email or web address]] de Phone Number CDR HISTORICAL RESULTS * Blood glucose, POC (06/01/2016 4:05 PM WOODWORKING MACHINE FEEDER) Glucose, POC, bld 116 70 - 199 mg/dl CDR HISTORICAL RESULTS Blood specimen (specimen) 06/01/2016 4:05 PM WOODWORKING MACHINE FEEDER Joel Norris MD LAB BLOOD ORDERABLES Fin al Result Performing Organization Address [facility] [[email or web address]] de Phone Number CDR HISTORICAL RESULTS * Blood glucose, POC (06/01/2016 11:22 AM WOODWORKING MACHINE FEEDER) Glucose, POC, bld 127 70 - 199 mg/dl CDR HISTORICAL RESULTS Blood specimen (specimen) 06/01/2016 11:22 AM WOODWORKING MACHINE FEEDER Joel Norris MD LAB BLOOD ORDERABLES Fin al Result Performing Organization Address City/[facility]/ZIP Co de Phone Number CDR HISTORICAL RESULTS * Blood glucose, POC (06/01/2016 8:34 AM WOODWORKING MACHINE FEEDER) Glucose, POC, bld 140 70 - 199 mg/dl CDR HISTORICAL RESULTS Blood specimen (specimen) 06/01/2016 8:34 AM WOODWORKING MACHINE FEEDER Joel Norris MD LAB BLOOD ORDERABLES Fin al Result CDR HISTORICAL RESULTS * US Duplex Scan of Aorta; Inferior Vena Cava, Iliac, Complete (06/01/2016 8:14 AM WOODWORKING MACHINE FEEDER) Anatomical Region Laterality Modality Vascular Ultrasound 06/01/2016 8:14 AM WOODWORKING MACHINE FEEDER Narrative 06/01/2016 10:51 AM WOODWORKING MACHINE FEEDER JOEL FRIEDMAN M.D. FINAL REPORT ACC# ??Date Time ??Exam [id number] Jun 01, 2016 08:14:00 [id number] Abd Orgn Duplex EXAMINATION: ?LIVER DOPPLER - TIPS HISTORY: ??45-year-old man with history of cirrhosis status post TIPS placement now with worsening confusion. COMPARISON: 12/24/2015. FINDINGS: This examination is technically limited due to poor sound wave penetration secondary to body habitus. Color Doppler and spectral analysis were used to evaluate the stent and hepatic vasculature. ??Main portal vein velocity measures 27 cm/second, previously 45 cm/sec. ??Flow is now antegrade in both the right and left portal vein branches, previously retrograde. ??Maximum velocity within the stent occurs in the mid portion and measures 159 cm/second, previously 147 cm/sec. ??Minimum velocity occurs within the distal portion of the stent and measures 109 cm/second, previously 116 cm/sec. ??The draining hepatic vein shows antegrade flow with a velocity of 12 cm/second, previously 10 cm/sec. ??There is no evidence of stenosis or collaterals. There is no ascites. IMPRESSION: ?? Although the TIPS appears patent with normal flow velocities, flow reversal is now seen in the right and left portal veins, and flow velocity in the main portal vein has decreased from the prior study. Early stent stenosis may be present. Requested By: JOEL NORRIS M.D. Dictated By: ?? JOEL FRIEDMAN M.D. ??on Jun 01 2016 10:51A This document has been electronically signed by: JOEL FRIEDMAN M.D. on Jun 01 2016 10:51A [id number] Procedure Note Provider, MD Tyler - 09/10/2016 JOEL FRIEDMAN M.D. FINAL REPORT ACC# Date Time Exam [id number] Jun 01, 2016 08:14:00 [id number] Abd Orgn Duplex EXAMINATION: LIVER DOPPLER - TIPS HISTORY: 45-year-old man with history of cirrhosis status post TIPS placement now with worsening confusion. COMPARISON: 12/24/2015. FINDINGS: This examination is technically limited due to poor sound wave penetration secondary to body habitus. Color Doppler and spectral analysis were used to evaluate the stent and hepatic vasculature. Main portal vein velocity measures 27 cm/second, previously 45 cm/sec. Flow is now antegrade in both the right and left portal vein branches, previously retrograde. Maximum velocity within the stent occurs in the mid portion and measures 159 cm/second, previously 147 cm/sec. Minimum velocity occurs within the distal portion of the stent and measures 109 cm/second, previously 116 cm/sec. The draining hepatic vein shows antegrade flow with a velocity of 12 cm/second, previously 10 cm/sec. There is no evidence of stenosis or collaterals. There is no ascites. IMPRESSION: Although the TIPS appears patent with normal flow velocities, flow reversal is now seen in the right and left portal veins, and flow velocity in the main portal vein has decreased from the prior study. Early stent stenosis may be present. Requested By: JOEL NORRIS M.D. Dictated By: JOEL FRIEDMAN M.D. on Jun 01 2016 10:51A This document has been electronically signed by: JOEL FRIEDMAN M.D. on Jun 01 2016 10:51A [id number] us Historical Provider CV VASCULAR PROCEDURES Fi nal Result * Serum cyanocobalamin (vitamin B12) (06/01/2016 7:03 AM WOODWORKING MACHINE FEEDER) Cyanocobalamin (Vit B12) 508 210 - 900 pg/ml CDR HISTORICAL RESULTS Serum 06/01/2016 7:03 AM WOODWORKING MACHINE FEEDER Joel Norris MD LAB BLOOD ORDERABLES Fin al Result Performing Organization Address [facility] Co de Phone Number CDR HISTORICAL RESULTS * Serum iron profile (06/01/2016 7:03 AM WOODWORKING MACHINE FEEDER) Iron 146 50 - 150 mcg/dl CDR HISTORICAL RESULTS UIBC 209 112 - 347 mcg/dl CDR HISTORICAL RESULTS TIBC 355 250 - 400 mcg/dl CDR HISTORICAL RESULTS Transferrin saturation 41 20 - 50 % CDR HISTORICAL RESULTS Serum 06/01/2016 7:03 AM WOODWORKING MACHINE FEEDER Joel Norris MD LAB BLOOD ORDERABLES Fin al Result Performing Organization Address [facility] Phone Number CDR HISTORICAL RESULTS * Serum ferritin (06/01/2016 7:03 AM WOODWORKING MACHINE FEEDER) Ferritin 32 30 - 400 ng/ml CDR HISTORICAL RESULTS Serum 06/01/2016 7:03 AM WOODWORKING MACHINE FEEDER Joel Norris MD LAB BLOOD ORDERABLES Fin al Result Performing Organization Address [facility] Phone Number CDR HISTORICAL RESULTS * (ABNORMAL) Blood hemoglobin A1C (06/01/2016 7:03 AM WOODWORKING MACHINE FEEDER) Hgb A1C 7.2(H) 4.0 - 6.0 % CDR HISTORICAL RESULTS Estimated average glucose 160 mg/dl CDR HISTORIC AL RESULTS Comment: The ADA recommends reporting an estimated Average Glucose (eAG) with all Hemoglobin A1c results using the equation derived from a study of 507 normal and diabetic adults. ??Minority populations were underrepresented and children were not included. ??(Diabetes Care 31:8076-7959, 2008). ??The eAG is not equivalent to a fasting glucose. Blood specimen (specimen) 06/01/2016 7:03 AM WOODWORKING MACHINE FEEDER Joel Norris MD LAB BLOOD ORDERABLES Fin al Result Performing Organization Address City/[facility] [[email or web address]] de Phone Number CDR HISTORICAL RESULTS * (ABNORMAL) Plasma hepatic function panel (06/01/2016 7:03 AM WOODWORKING MACHINE FEEDER) AST 36 10 - 50 Units/L CDR HISTORICAL RESULTS ALT 29 7 - 55 Units/L CDR HISTORICAL RESULTS Alk phos 89 40 - 130 Units/L CDR HISTORICAL RESULTS Bilirubin 2.2(H) 0.1 - 1.2 mg/dl CDR HISTORICAL RESULTS Bilirubin, direct 0.4(H) 0.1 - 0.3 mg/dl CDR HISTORICAL RESULTS Protein, pl 7.1 6.5 - 8.5 g/dl CDR HISTORICAL RESULTS Alb 3.9 3.5 - 5.0 g/dl CDR HISTORICAL RESULTS Plasma 06/01/2016 7:03 AM WOODWORKING MACHINE FEEDER Joel Norris MD LAB BLOOD ORDERABLES Fin al Result Performing Organization Address [facility] [[email or web address]] de Phone Number CDR HISTORICAL RESULTS * Plasma partial thromboplastin time (PTT) (06/01/2016 7:03 AM WOODWORKING MACHINE FEEDER) Pathologist [facility] APTT 31.4 25.0 - 37.0 seconds CDR HISTORICAL RESULTS Comment: Interpretive Data Therapeutic heparin range:60.0 - 94.0 sec based on correlation with therapeutic heparin activity range of 0.3 -0.7 Units/mL. Current interpretive data was last revised on 2011. Plasma 06/01/2016 7:03 AM WOODWORKING MACHINE FEEDER Joel Norris MD LAB BLOOD ORDERABLES Fin al Result Performing Organization Address [facility] [[email or web address]] de Phone Number CDR HISTORICAL RESULTS * Plasma basic metabolic panel (06/01/2016 7:03 AM WOODWORKING MACHINE FEEDER) Sodium 141 135 - 145 mmol/L CDR HISTORICAL RESULTS K, pl 4.1 3.3 - 4.9 mmol/L CDR HISTORICAL RESULTS Chloride 105 97 - 110 mmol/L CDR HISTORICAL RESULTS CO2 26 22 - 32 mmol/L CDR HISTORICAL RESULTS BUN 10 8 - 25 mg/dl CDR HISTORICAL RESULTS Glucose 135 70 - 199 mg/dl CDR HISTORICAL RESULTS Creatinine 0.88 0.80 - 1.30 mg/dl CDR HISTORICAL RESULTS Calcium 8.9 8.5 - 10.3 mg/dl CDR HISTORICAL RESULTS A. gap 10 2 - 15 mmol/L CDR HISTORICAL RESULTS Plasma 06/01/2016 7:03 AM WOODWORKING MACHINE FEEDER Joel Norris MD LAB BLOOD ORDERABLES Fin al Result Performing Organization Address [facility] [[email or web address]] de Phone Number CDR HISTORICAL RESULTS * Plasma phosphorus (06/01/2016 7:03 AM WOODWORKING MACHINE FEEDER) Phosphorus, pl 3.6 2.3 - 4.5 mg/dl CDR HISTORICAL RESULTS Plasma 06/01/2016 7:03 AM WOODWORKING MACHINE FEEDER Joel Norris MD LAB BLOOD ORDERABLES Fin al Result Performing Organization Address [facility] [[email or web address]] de Phone Number CDR HISTORICAL RESULTS * Plasma prothrombin time (PT) (06/01/2016 7:03 AM WOODWORKING MACHINE FEEDER) Prothrombin time (PT) 13.2 9.2 - 14.0 seconds CDR HISTORICAL RESULTS INR 1.15 0.81 - 1.22 CDR HIST ORICAL RESULTS Comment: Interpretive Data Inpatient therapeutic ranges* Atrial fibrillation ?2.0-3.0 INR Venous thrombo-embolism ?2.0-3.0 INR Bioprosthetic heart valve ?* Mechanical heart valve, bileaflet or tilting disk,aortic position ? 2.0-3.0 INR All other,or bileaflet or tilting disk, in mitral position ? 2.5-3.5 INR *See the pharmacy resource directory (PHRED) for an updated copy of the Tool Book at [email or web address] Current Interpretive Data was last revised 2011. Plasma 06/01/2016 7:03 AM WOODWORKING MACHINE FEEDER Joel Norris MD LAB BLOOD ORDERABLES Fin al Result Performing Organization Address City/[facility] [[email or web address]] de Phone Number CDR HISTORICAL RESULTS * Serum magnesium (06/01/2016 7:03 AM WOODWORKING MACHINE FEEDER) Magnesium 2.0 1.4 - 2.5 mg/dl CDR HISTORICAL RESULTS Serum 06/01/2016 7:03 AM WOODWORKING MACHINE FEEDER Joel Norris MD LAB BLOOD ORDERABLES Fin al Result Performing Organization Address [facility] [[email or web address]] de Phone Number CDR HISTORICAL RESULTS * (ABNORMAL) Blood cell count (CBC) (06/01/2016 7:03 AM WOODWORKING MACHINE FEEDER) WBC 4.3 3.8 - 9.9 K/cumm CDR HISTORICAL RESULTS RBC 4.57 4.30 - 5.80 M/cumm CDR HISTORICAL RESULTS Hgb 13.2 13.0 - 17.5 g/dl CDR HISTORICAL RESULTS Hct 36.6(L) 38.9 - 50.3 % CDR HISTORICAL RESULTS MCV 80.1(L) 81.3 - 96.4 fl CDR HISTORICAL RESULTS MCH 28.9 27.1 - 33.3 pg CDR HISTORICAL RESULTS MCHC 36.1(H) 32.3 - 35.7 g/dl CDR HISTORICAL RESULTS Rdw 15.3(H) 11.1 - 14.9 % CDR HISTORICAL RESULTS RDW 44.5 35.7 - 48.1 fl CDR HISTORICAL RESULTS Platelets 97(L) 150 - 400 K/cumm CDR HISTORICAL RESULTS MPV 10.4 9.1 - 12.3 fl CDR HISTORICAL RESULTS NRBC 0.0 0.0 - 0.2 % CDR HIST ORICAL RESULTS NRBC, abs 0.00 0.00 - 0.01 K/cumm CDR HISTORICAL RESULTS Blood specimen (specimen) 06/01/2016 7:03 AM WOODWORKING MACHINE FEEDER Joel Norris MD LAB BLOOD ORDERABLES Fin al Result Performing Organization Address [facility] [[email or web address]] de Phone Number CDR HISTORICAL RESULTS * Blood ABO, Rh, indirect ab screen (06/01/2016 7:03 AM WOODWORKING MACHINE FEEDER) ABO, Rho(D) A Positive CDR HIS TORICAL RESULTS Steve, indirect Negative CDR HISTORICAL RESULTS Blood specimen (specimen) 06/01/2016 7:03 AM WOODWORKING MACHINE FEEDER Joel Norris MD LAB BLOOD ORDERABLES Fin al Result Performing Organization Address City/[facility] Co de Phone Number CDR HISTORICAL RESULTS * (ABNORMAL) Blood cell morphologic exam (06/01/2016 7:03 AM WOODWORKING MACHINE FEEDER) Neutrophils 67.1 % CDR HIST ORICAL RESULTS Immature granulocytes 0.7 % CDR HISTORICAL RESULTS Lymphocytes 17.9 % CDR HIST ORICAL RESULTS Monos 9.8 % CDR HISTOR ICAL RESULTS Eosinophils 3.3 % CDR HIST ORICAL RESULTS Basophils 1.2 % CDR HISTOR ICAL RESULTS Neutrophils, abs 2.9 1.7 - 6.5 K/cumm CDR HISTORICAL RESULTS Immature granulocyte, abs 0.0 0.0 - 0.1 K/cumm CDR HISTORICAL RESULTS Lymphocytes, abs 0.8(L) 0.8 - 3.3 K/cumm CDR HISTORICAL RESULTS Monocytes, absolute 0.4 0.2 - 0.8 K/cumm CDR HISTORICAL RESULTS Eosinophils, abs 0.1 0.0 - 0.5 K/cumm CDR HISTORICAL RESULTS Basophils, abs 0.0 0.0 - 0.1 K/cumm CDR HISTORICAL RESULTS Blood specimen (specimen) 06/01/2016 7:03 AM WOODWORKING MACHINE FEEDER Joel Norris MD LAB BLOOD ORDERABLES Fin al Result Performing Organization Address [facility] [[email or web address]] de Phone Number CDR HISTORICAL RESULTS * Blood glucose, POC (06/01/2016 5:28 AM WOODWORKING MACHINE FEEDER) Glucose, POC, bld 121 70 - 199 mg/dl CDR HISTORICAL RESULTS Blood specimen (specimen) 06/01/2016 5:28 AM WOODWORKING MACHINE FEEDER Edmond Castaneda MD LAB BLOOD ORDERABLES Anastasiya l Result Performing Organization Address City/[facility]/ZIP Co de Phone Number CDR HISTORICAL RESULTS * ELECTROCARDIOGRAPHY (ECG) (06/01/2016) Narrative 06/01/2016 Ordered by an unspecified provider. us Historical Provider ECG ORDERABLES Final Res ult documented in this encounter Visit Diagnoses Diagnosis Hepatic failure, without coma (CMS/HCC) (HCC) Secondary esophageal varices without bleeding (CMS/HCC) (HCC) Hematemesis Type 2 diabetes mellitus with hyperglycemia (CMS/HCC) (HCC) Portal hypertension (CMS/HCC) (HCC) Portal hypertension Nonalcoholic steatohepatitis (BLAND) Major depressive disorder, single episode Major depressive disorder, single episode, unspecified History of colonic polyps Personal history of colonic polyps Spinal stenosis Spinal stenosis, unspecified region other than cervical Personal history of nicotine dependence Patient's unintentional underdosing of medication regimen for other reason Other diseases of stomach and duodenum Duodenitis without bleeding longterm current use of insulin (CMS/HCC) (HCC) Anxiety disorder Anxiety state, unspecified Family history of malignant neoplasm of digestive organ Family history of malignant neoplasm of gastrointestinal tract Angiodysplasia of stomach and duodenum without bleeding Angiodysplasia of stomach and duodenum (without mention of hemorrhage) Other cirrhosis of liver (HCC) Polyp of stomach and duodenum Abnormal weight loss Loss of weight Body mass index (BMI) of 38.0-38.9 in adult documented in this encounter
--- OUTSIDE RECORDS SUMMARY | 2024-04-19 23:10 | XMS_ITS | Encounter Summary ---
Author Organization [facility] Facility Care Team Providers Care Cell Biologist Name Role Phone Unavailable Primary Care Provider Unavailabl e Encounter Details Date Type Department Care Team (Latest Contact Info) Description 11/19/2015 3:45 AM CDT - 11/23/2015 7:53 PM CDT Hospital Encounter [facility] Ofelia Sanchez MD [address] [place] [address] Portal hypertension (CMS/HCC); Secondary esophageal varices with bleeding (CMS/HCC); Hematemesis; Other cirrhosis of liver (CMS/HCC); Other neutropenia (CMS/HCC); Type 2 diabetes mellitus without complications (CMS/HCC); Iron deficiency anemia; Essential (primary) hypertension; Hypersplenism; Nonalcoholic steatohepatitis (BLAND); Other diseases of stomach and duodenum; Duodenitis without bleeding; 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); Fever presenting with conditions classified elsewhere Social History Tobacco Use Types Packs/Day Years Used Date Smoking Tobacco: Never Assessed Sex and Gender Information Value Date Recorded Sex Assigned at Not on file Legal Sex Male 2:52 PM [employer] Gender Identity Male 10/29/2020 12:37 PM CDT Sexual Orientation Straight 10/29/2020 12 :37 PM CDT documented as of this encounter Last Filed Vital Signs Vital Sign Reading Time Taken Comments Blood Pressure 126/46 11/23/2015 2:18 PM CDT Pulse 83 11/23/2015 2:18 PM CDT Temperature - - Respiratory Rate - - Oxygen Saturation 97% 11/23/2015 2:18 PM CDT Inhaled Oxygen Concentration - - Weight 103 kg (226 lb 15.8 oz) 11/23/2015 5:00 A M CDT Height 172.7 cm (5' 8 ) 11/19/2015 3:57 AM CDT Body Mass Index 34.51 11/19/2015 3:57 AM CDT documented in this encounter Medications [...] Associated Diagnosis Comments BLOOD GLUCOSE, POC Routine 11/23/2015 6: 20 PM CDT BLOOD GLUCOSE, POC Routine 11/23/2015 11 :32 AM CDT SERUM TROPONIN I Routine 11/23/2015 11:1 3 AM CDT PLASMA COMPREHENSIVE METABOLIC PANEL Routine 11/23/2015 11:13 AM CDT BLOOD GLUCOSE, POC Routine 11/23/2015 6: 40 AM CDT BLOOD CELL COUNT Routine 11/22/2015 11:3 9 PM CDT BLOOD GLUCOSE, POC Routine 11/22/2015 9: 05 PM CDT BLOOD GLUCOSE, POC Routine 11/22/2015 5: 12 PM CDT BLOOD ABO, RH, INDIRECT AB SCREEN Routine 11/22/2015 9:45 AM CDT BLOOD GLUCOSE, POC Routine 11/22/2015 6: 49 AM CDT PLASMA PROTHROMBIN TIME (PT) Routine 11/21/2015 10:17 PM CDT PLASMA BASIC METABOLIC PANEL Routine 11/21/2015 10:17 PM CDT BLOOD CELL COUNT Routine 11/21/2015 10:1 7 PM CDT BLOOD GLUCOSE, POC Routine 11/21/2015 8: 50 PM CDT BLOOD GLUCOSE, POC Routine 11/21/2015 4: 51 PM CDT BLOOD GLUCOSE, POC Routine 11/21/2015 11 :28 AM CDT BLOOD GLUCOSE, POC Routine 11/21/2015 6: 37 AM CDT PLASMA PROTHROMBIN TIME (PT) Routine 11/20/2015 10:01 PM CDT PLASMA PARTIAL THROMBOPLASTIN TIME (PTT) Routine 11/20/2015 10:01 PM CDT PLASMA BASIC METABOLIC PANEL Routine 11/20/2015 10:01 PM CDT BLOOD CELL COUNT (CBC) Routine 6 10:01 PM CDT BLOOD CELL MORPHOLOGIC EXAM Routine 11/20/2015 10:01 PM CDT BLOOD GLUCOSE, POC Routine 11/20/2015 8: 35 PM CDT BLOOD GLUCOSE, POC Routine 11/20/2015 4: 45 PM CDT RESPIRATORY PATHOGEN MULTIPLEX PCR, CDR Routine 11/20/2015 1:37 PM CDT BLOOD GLUCOSE, POC Routine 11/20/2015 11 :34 AM CDT PLASMA PROTHROMBIN TIME (PT) Routine 11/20/2015 9:35 AM CDT BLOOD CELL COUNT (CBC) Routine 6 9:35 AM CDT BLOOD CELL MORPHOLOGIC EXAM Routine 11/20/2015 9:35 AM CDT BLOOD GLUCOSE, POC Routine 11/20/2015 6: 46 AM CDT BLOOD CELL MORPHOLOGIC EXAM, MANUAL Routine 11/19/2015 11:12 PM CDT SERUM IRON PROFILE Routine 11/19/2015 11 :12 PM CDT SERUM FERRITIN Routine 11/19/2015 11:12 PM CDT BLOOD CELL COUNT (CBC) Routine 201 6 11:12 PM CDT BLOOD GLUCOSE, POC Routine 11/19/2015 9: 39 PM CDT BLOOD CELL COUNT Routine 11/19/2015 6:37 PM CDT BLOOD GLUCOSE, POC Routine 11/19/2015 1: 55 PM CDT BLOOD CELL COUNT Routine 11/19/2015 10:2 3 AM CDT URINALYSIS Routine 11/19/2015 9:07 AM CDT BLOOD GLUCOSE, POC Routine 11/19/2015 7: 56 AM CDT BLOOD CULTURE, CDR Routine 11/19/2015 4: 40 AM CDT BLOOD CULTURE, CDR Routine 11/19/2015 4: 40 AM CDT SERUM HUMAN IMMUNODEFICIENCY VIRUS (HIV) 1/2 AB + P24 AG Routine 11/19/2015 4:40 AM CDT BLOOD GLUCOSE, POC Routine 11/19/2015 4: 40 AM CDT BLOOD CELL COUNT Routine 11/19/2015 4:4 0 AM CDT BLOOD GLUCOSE, POC Routine 11/19/2015 3: 13 AM CDT SERUM LIPASE Routine 11/19/2015 1:02 AM CDT PLASMA PROTHROMBIN TIME (PT) Routine 11/19/2015 1:02 AM CDT PLASMA PARTIAL THROMBOPLASTIN TIME (PTT) Routine 11/19/2015 1:02 AM CDT PLASMA HEPATIC FUNCTION PANEL Routine 11/19/2015 1:02 AM CDT PLASMA BASIC METABOLIC PANEL Routine 11/19/2015 1:02 AM CDT BLOOD CELL COUNT (CBC) Routine 6 1:02 AM CDT BLOOD ABO, RH, INDIRECT AB SCREEN Routine 11/19/2015 1:02 AM CDT BLOOD CELL MORPHOLOGIC EXAM Routine 11/19/2015 1:02 AM CDT BLOOD GLUCOSE, POC Routine 11/19/2015 12 :25 AM CDT documented in this encounter Results * Blood glucose, POC (11/23/2015 6:20 PM CDT) Pathologist [facility] Glucose, POC, bld 125 70 - 199 mg/dl CDR HISTORICAL RESULTS Blood specimen (specimen) 11/23/2015 6:20 PM CDT Ofelia Alvarado MD LAB BLOOD ORDERABLES Fin al Result CDR HISTORICAL RESULTS * Blood glucose, POC (11/23/2015 11:32 AM CDT) Pathologist [facility] Glucose, POC, bld 165 70 - 199 mg/dl CDR HISTORICAL RESULTS Blood specimen (specimen) 11/23/2015 11:32 AM CDT Ofelia Alvarado MD LAB BLOOD ORDERABLES Fin al Result Performing Organization Address [facility]/ZIP Co de Phone Number CDR HISTORICAL RESULTS * (ABNORMAL) Plasma comprehensive metabolic panel (11/23/2015 11:13 AM CDT) Pathologist [facility] Sodium 142 135 - 145 mmol/L CDR HISTORICAL RESULTS K, pl 3.8 3.3 - 4.9 mmol/L CDR HISTORICAL RESULTS Chloride 104 97 - 110 mmol/L CDR HISTORICAL RESULTS CO2 26 22 - 32 mmol/L CDR HISTORICAL RESULTS A. gap 12 2 - 15 mmol/L CDR HISTORICAL RESULTS Glucose 187 70 - 199 mg/dl CDR HISTORICAL RESULTS BUN 18 8 - 25 mg/dl CDR HISTORICAL RESULTS Creatinine 0.89 0.80 - 1.30 mg/dl CDR HISTORICAL RESULTS Calcium 8.5 8.5 - 10.3 mg/dl CDR HISTORICAL RESULTS Protein, pl 6.7 6.5 - 8.5 g/dl CDR HISTORICAL RESULTS Alb 3.7 3.5 - 5.0 g/dl CDR HISTORICAL RESULTS Bilirubin 2.5(H) 0.1 - 1.2 mg/dl CDR HISTORICAL RESULTS Alk phos 85 40 - 130 Units/L CDR HISTORICAL RESULTS AST 53(H) 10 - 50 Units/L CDR HISTORICAL RESULTS ALT 48 7 - 55 Units/L CDR HISTORICAL RESULTS Plasma 11/23/2015 11:1 3 AM CDT [facility] Provider LAB BLOOD ORDERABLES Anastasiya l Result CDR HISTORICAL RESULTS * Serum troponin I (11/23/2015 11:13 AM CDT) Pathologist [facility] Troponin I <0.03 0.00 - 0.03 ng/ml CDR HISTORICAL RESULTS Comment: Interpretive Data Serial determinations are recommended for the diagnosis of myocardial infarction (Third [place] Definition of Myocardial Infarction. ??J Am Tor Cardiol 2012;60:1581-98). Current interpretive data was last revised on 13. Serum 11/23/2015 11:1 3 AM CDT [facility] Provider LAB BLOOD ORDERABLES Anastasiya l Result Performing Organization Address [facility] de Phone Number CDR HISTORICAL RESULTS * Blood glucose, POC (11/23/2015 6:40 AM CDT) Glucose, POC, bld 92 70 - 199 mg/dl CDR HISTORICAL RESULTS Blood specimen (specimen) 11/23/2015 6:40 AM CDT Ofelia Alvarado MD LAB BLOOD ORDERABLES Fin al Result Performing Organization Address [facility] de Phone Number CDR HISTORICAL RESULTS * (ABNORMAL) Blood cell count [CBC] express (11/22/2015 11:39 PM CDT) WBC 8.7 3.8 - 9.9 K/cumm CDR HISTORICAL RESULTS RBC 4.86 4.30 - 5.80 M/cumm CDR HISTORICAL RESULTS Hgb 12.5(L) 13.0 - 17.5 g/dl CDR HISTORICAL RESULTS Hct 37.9(L) 38.9 - 50.3 % CDR HISTORICAL RESULTS MCV 78.0(L) 81.3 - 96.4 fl CDR HISTORICAL RESULTS MCH 25.7(L) 27.1 - 33.3 pg CDR HISTORICAL RESULTS MCHC 33.0 32.3 - 35.7 g/dl CDR HISTORICAL RESULTS Rdw 16.2(H) 11.1 - 14.9 % CDR HISTORICAL RESULTS RDW 45.5 35.7 - 48.1 fl CDR HISTORICAL RESULTS NRBC 0.0 0.0 - 0.2 % CDR HIST ORICAL RESULTS NRBC, abs 0.00 0.00 - 0.01 K/cumm CDR HISTORICAL RESULTS Platelets 86(L) 150 - 400 K/cumm CDR HISTORICAL RESULTS MPV 11.1 9.1 - 12.3 fl CDR HISTORICAL RESULTS Blood specimen (specimen) 11/22/2015 11:39 PM CDT Richard Archuleta LAB BLOOD ORDERABLES Final Resul t Performing Organization Address [facility] de Phone Number CDR HISTORICAL RESULTS * Blood glucose, POC (11/22/2015 9:05 PM CDT) Glucose, POC, bld 192 70 - 199 mg/dl CDR HISTORICAL RESULTS Blood specimen (specimen) 11/22/2015 9:05 PM CDT Ofelia Alvarado MD LAB BLOOD ORDERABLES Fin al Result Performing Organization Address [facility] de Phone Number CDR HISTORICAL RESULTS * Blood glucose, POC (11/22/2015 5:12 PM CDT) Glucose, POC, bld 126 70 - 199 mg/dl CDR HISTORICAL RESULTS Blood specimen (specimen) 11/22/2015 5:12 PM CDT Ofelia Alvarado MD LAB BLOOD ORDERABLES Fin al Result Performing Organization Address [facility] de Phone Number CDR HISTORICAL RESULTS * Blood ABO, Rh, indirect ab screen (11/22/2015 9:45 AM CDT) ABO, Rho(D) A Positive CDR HIS TORICAL RESULTS Steve, indirect Negative CDR HISTORICAL RESULTS Blood specimen (specimen) 11/22/2015 9:45 AM CDT Ofelia Alvarado MD LAB BLOOD ORDERABLES Fin al Result Performing Organization Address [facility] de Phone Number CDR HISTORICAL RESULTS * Blood glucose, POC (11/22/2015 6:49 AM CDT) Glucose, POC, bld 171 70 - 199 mg/dl CDR HISTORICAL RESULTS Blood specimen (specimen) 11/22/2015 6:49 AM CDT Ofelia Alvarado MD LAB BLOOD ORDERABLES Fin al Result Performing Organization Address [facility] de Phone Number CDR HISTORICAL RESULTS * (ABNORMAL) Plasma basic metabolic panel (11/21/2015 10:17 PM CDT) Sodium 136 135 - 145 mmol/L CDR HISTORICAL RESULTS K, pl 4.3 3.3 - 4.9 mmol/L CDR HISTORICAL RESULTS Chloride 101 97 - 110 mmol/L CDR HISTORICAL RESULTS CO2 21(L) 22 - 32 mmol/L CDR HISTORICAL RESULTS A. gap 14 2 - 15 mmol/L CDR HISTORICAL RESULTS Glucose 244(H) 70 - 199 mg/dl CDR HISTORICAL RESULTS BUN 18 8 - 25 mg/dl CDR HISTORICAL RESULTS Creatinine 0.90 0.80 - 1.30 mg/dl CDR HISTORICAL RESULTS Calcium 8.8 8.5 - 10.3 mg/dl CDR HISTORICAL RESULTS Plasma 11/21/2015 10:1 7 PM CDT Richard Archuleta LAB BLOOD ORDERABLES Final Resul t Performing Organization Address [facility] de Phone Number CDR HISTORICAL RESULTS * (ABNORMAL) Plasma prothrombin time (PT) (11/21/2015 10:17 PM CDT) Prothrombin time (PT) 16.2(H) 9.2 - 13.0 seconds CDR HISTORICAL RESULTS INR 1.49(H) 0.90 - 1.20 CDR HIST ORICAL RESULTS Comment: Interpretive Data Inpatient therapeutic ranges* Atrial fibrillation ?2.0-3.0 INR Venous thrombo-embolism ?2.0-3.0 INR Bioprosthetic heart valve ?* Mechanical heart valve, bileaflet or tilting disk,aortic position ? 2.0-3.0 INR All other,or bileaflet or tilting disk, in mitral position ? 2.5-3.5 INR *See the pharmacy resource directory (PHRED) for an updated copy of the Tool Book at [email or web address] Current Interpretive Data was last revised 2011. Plasma 11/21/2015 10:1 7 PM CDT us RichardPopego LAB BLOOD ORDERABLES Final Resul t Performing Organization Address [facility]/ZIP Co de Phone Number CDR HISTORICAL RESULTS * (ABNORMAL) Blood cell count [CBC] express (11/21/2015 10:17 PM CDT) WBC 2.0(L) 3.8 - 9.9 K/cumm CDR HISTORICAL RESULTS RBC 4.74 4.30 - 5.80 M/cumm CDR HISTORICAL RESULTS Hgb 11.9(L) 13.0 - 17.5 g/dl CDR HISTORICAL RESULTS Hct 37.9(L) 38.9 - 50.3 % CDR HISTORICAL RESULTS MCV 80.0(L) 81.3 - 96.4 fl CDR HISTORICAL RESULTS MCH 25.1(L) 27.1 - 33.3 pg CDR HISTORICAL RESULTS MCHC 31.4(L) 32.3 - 35.7 g/dl CDR HISTORICAL RESULTS Rdw 16.1(H) 11.1 - 14.9 % CDR HISTORICAL RESULTS RDW 47.1 35.7 - 48.1 fl CDR HISTORICAL RESULTS NRBC 0.0 0.0 - 0.2 % CDR HIST ORICAL RESULTS NRBC, abs 0.00 0.00 - 0.01 K/cumm CDR HISTORICAL RESULTS Platelets 62(L) 150 - 400 K/cumm CDR HISTORICAL RESULTS MPV 11.3 9.1 - 12.3 fl CDR HISTORICAL RESULTS Blood specimen (specimen) 11/21/2015 10:17 PM CDT us Richard Kim LAB BLOOD ORDERABLES Final Resul t CDR HISTORICAL RESULTS * (ABNORMAL) Blood glucose, POC (11/21/2015 8:50 PM CDT) Glucose, POC, bld 223(H) 70 - 199 mg/dl CDR HISTORICAL RESULTS Blood specimen (specimen) 11/21/2015 8:50 PM CDT Ofelia Alvarado MD LAB BLOOD ORDERABLES Fin al Result Performing Organization Address [facility] Phone Number CDR HISTORICAL RESULTS * Blood glucose, POC (11/21/2015 4:51 PM CDT) Glucose, POC, bld 157 70 - 199 mg/dl CDR HISTORICAL RESULTS Blood specimen (specimen) 11/21/2015 4:51 PM CDT Ofelia Alvarado MD LAB BLOOD ORDERABLES Fin al Result Performing Organization Address [facility] Phone Number CDR HISTORICAL RESULTS * Blood glucose, POC (11/21/2015 11:28 AM CDT) Glucose, POC, bld 133 70 - 199 mg/dl CDR HISTORICAL RESULTS Blood specimen (specimen) 11/21/2015 11:28 AM CDT Ofelia Alvarado MD LAB BLOOD ORDERABLES Fin al Result Performing Organization Address [facility] Phone Number CDR HISTORICAL RESULTS * Blood glucose, POC (11/21/2015 6:37 AM CDT) Glucose, POC, bld 102 70 - 199 mg/dl CDR HISTORICAL RESULTS Blood specimen (specimen) 11/21/2015 6:37 AM CDT us Ofelia Alvarado MD LAB BLOOD ORDERABLES Fin al Result Performing Organization Address [facility] de Phone Number CDR HISTORICAL RESULTS * Plasma partial thromboplastin time (PTT) (11/20/2015 10:01 PM CDT) APTT 29.2 25.0 - 37.0 seconds CDR HISTORICAL RESULTS Comment: Interpretive Data Therapeutic heparin range:60.0 - 94.0 sec based on correlation with therapeutic heparin activity range of 0.3 -0.7 Units/mL. Current interpretive data was last revised on 2011. Plasma 11/20/2015 10:0 1 PM CDT [facility] Provider MD LAB BLOOD ORDERABLES Anastasiya l Result Performing Organization Address [facility] de Phone Number CDR HISTORICAL RESULTS * Plasma basic metabolic panel (11/20/2015 10:01 PM CDT) Pathologist [facility] Sodium 138 135 - 145 mmol/L CDR HISTORICAL RESULTS K, pl 3.9 3.3 - 4.9 mmol/L CDR HISTORICAL RESULTS Chloride 100 97 - 110 mmol/L CDR HISTORICAL RESULTS CO2 27 22 - 32 mmol/L CDR HISTORICAL RESULTS A. gap 11 2 - 15 mmol/L CDR HISTORICAL RESULTS Glucose 173 70 - 199 mg/dl CDR HISTORICAL RESULTS BUN 17 8 - 25 mg/dl CDR HISTORICAL RESULTS Creatinine 1.06 0.80 - 1.30 mg/dl CDR HISTORICAL RESULTS Calcium 8.5 8.5 - 10.3 mg/dl CDR HISTORICAL RESULTS Plasma 11/20/2015 10:0 1 PM CDT [facility] Provider LAB BLOOD ORDERABLES Anastasiya l Result Performing Organization Address [facility] de Phone Number CDR HISTORICAL RESULTS * (ABNORMAL) Plasma prothrombin time (PT) (11/20/2015 10:01 PM CDT) Prothrombin time (PT) 15.3(H) 9.2 - 13.0 seconds CDR HISTORICAL RESULTS INR 1.41(H) 0.90 - 1.20 CDR HIST ORICAL RESULTS Comment: Interpretive Data Inpatient therapeutic ranges* Atrial fibrillation ?2.0-3.0 INR Venous thrombo-embolism ?2.0-3.0 INR Bioprosthetic heart valve ?* Mechanical heart valve, bileaflet or tilting disk,aortic position ? 2.0-3.0 INR All other,or bileaflet or tilting disk, in mitral position ? 2.5-3.5 INR *See the pharmacy resource directory (PHRED) for an updated copy of the Tool Book at [email or web address] Current Interpretive Data was last revised 2011. Plasma 11/20/2015 10:0 1 PM CDT us Historical Provider LAB BLOOD ORDERABLES Anastasiya enciso Result CDR HISTORICAL RESULTS * (ABNORMAL) Blood cell count (CBC) (11/20/2015 10:01 PM CDT) WBC 2.8(L) 3.8 - 9.9 K/cumm CDR HISTORICAL RESULTS RBC 4.69 4.30 - 5.80 M/cumm CDR HISTORICAL RESULTS Hgb 11.9(L) 13.0 - 17.5 g/dl CDR HISTORICAL RESULTS Hct 37.0(L) 38.9 - 50.3 % CDR HISTORICAL RESULTS MCV 78.9(L) 81.3 - 96.4 fl CDR HISTORICAL RESULTS MCH 25.4(L) 27.1 - 33.3 pg CDR HISTORICAL RESULTS MCHC 32.2(L) 32.3 - 35.7 g/dl CDR HISTORICAL RESULTS Rdw 16.2(H) 11.1 - 14.9 % CDR HISTORICAL RESULTS RDW 46.0 35.7 - 48.1 fl CDR HISTORICAL RESULTS Platelets 71(L) 150 - 400 K/cumm CDR HISTORICAL RESULTS MPV 11.4 9.1 - 12.3 fl CDR HISTORICAL RESULTS NRBC 0.0 0.0 - 0.2 % CDR HIST ORICAL RESULTS NRBC, abs 0.00 0.00 - 0.01 K/cumm CDR HISTORICAL RESULTS Blood specimen (specimen) 11/20/2015 10:01 PM CDT Historical Provider LAB BLOOD ORDERABLES Anastasiya enciso Result CDR HISTORICAL RESULTS * (ABNORMAL) Blood cell morphologic exam (11/20/2015 10:01 PM CDT) Neutrophils 56.4 % CDR HIST ORICAL RESULTS Immature granulocytes 0.4 % CDR HISTORICAL RESULTS Lymphocytes 22.7 % CDR HIST ORICAL RESULTS Monos 16.6 % CDR HISTOR ICAL RESULTS Eosinophils 3.2 % CDR HIST ORICAL RESULTS Basophils 0.7 % CDR HISTOR ICAL RESULTS Neutrophils, abs 1.6(L) 1.7 - 6.5 K/cumm CDR HISTORICAL RESULTS Immature granulocyte, abs 0.0 0.0 - 0.1 K/cumm CDR HISTORICAL RESULTS Lymphocytes, abs 0.6(L) 0.8 - 3.3 K/cumm CDR HISTORICAL RESULTS Monocytes, absolute 0.5 0.2 - 0.8 K/cumm CDR HISTORICAL RESULTS Eosinophils, abs 0.1 0.0 - 0.5 K/cumm CDR HISTORICAL RESULTS Basophils, abs 0.0 0.0 - 0.1 K/cumm CDR HISTORICAL RESULTS Blood specimen (specimen) 11/20/2015 10:01 PM CDT Historical Provider LAB BLOOD ORDERABLES Anastasiya l Result CDR HISTORICAL RESULTS * Blood glucose, POC (11/20/2015 8:35 PM CDT) Glucose, POC, bld 134 70 - 199 mg/dl CDR HISTORICAL RESULTS Blood specimen (specimen) 11/20/2015 8:35 PM CDT Ofelia Alvarado MD LAB BLOOD ORDERABLES Fin al Result CDR HISTORICAL RESULTS * Blood glucose, POC (11/20/2015 4:45 PM CDT) Glucose, POC, bld 130 70 - 199 mg/dl CDR HISTORICAL RESULTS Blood specimen (specimen) 11/20/2015 4:45 PM CDT Ofelia Alvarado MD LAB BLOOD ORDERABLES Fin al Result CDR HISTORICAL RESULTS * Respiratory Pathogen Multiplex PCR (11/20/2015 1:37 PM CDT) Sputum (Unknown) 11/20/2015 1:37 PM CDT 11/20/2015 4:27 PM CDT Impressions CDR HISTORICAL RESULTS - 11/20/2015 6:43 PM CDT The [employer] (formerly known as [employer] FilmArray Respiratory Panel (RP) assay is a multiplexed nucleic acid test capable of simultaneous qualitative detection and identification of multiple respiratory viral and bacterial nucleic acids. ??The following bacteria, viruses and virus subtypes can be identified using the FilmArray RP assay: Bordetella pertussis, Chlamydophila pneumoniae, Mycoplasma pneumoniae, Adenovirus, Coronavirus HKU1, Coronavirus NL63, Coronavirus 229E, Coronavirus OC43, Influenza A, Influenza A subtype H1, Influenza A subtype H3, Influenza A subtype 2009 H1, Influenza B, Metapneumovirus, Parainfluenza 1, Parainfluenza 2, Parainfluenza 3, Parainfluenza 4, RSV, Rhinovirus/Enterovirus. Due to the genetic similarity between human Rhinovirus and Enterovirus, the FilmArray RP assay cannot reliably differentiate them. Coronavirus OC43 may cross-react with some isolates of Coronavirus HKU1. ??A dual positive result may be due to cross-reactivity or may indicate a co-infection. A version of the FilmArray RP assay updated to include an additional adenovirus assay was approved by the FDA in June,. ??The updated version has demonstrated improved detection of adenoviruses relative to the previous version. ??All of the other assays for the 20 targets are unchanged. ?? The detection and identification of specific viral and bacterial nucleic acids from individuals exhibiting signs and symptoms of a respiratory infection aids in the diagnosis of respiratory infection if used in conjunction with other clinical and epidemiological information. ??The results of this test should not be used as the sole basis for diagnosis, treatment, or other management decisions. ??Negative results in the setting of a respiratory illness may be due to infection with pathogens that are not detected by this test. ??Positive results do not rule out infection/co- infection with other organisms. ??The agent(s) detected by the FilmArray RP may not be the definite cause of disease. ??Additional testing (lab, imaging, etc) may be necessary when evaluating a patient with possible respiratory tract infection. The FilmArray RP assay is FDA cleared for CONTINUOUS PILLOWCASE CUTTER swabs. ??Additional sample types have been validated according to CLIA regulations. ??The performance characteristics of this assay have been determined by [facility]. Current interpretive data was last revised on 2013. Narrative CDR HISTORICAL RESULTS - 11/20/2015 6:43 PM CDT Respiratory Pathogen nucleic acids NOT DETECTED (NEGATIVE) Historical Provider LAB MICROBIOLOGY - GENERA L ORDERABLES Final Result Performing Organization Address [facility] de Phone Number CDR HISTORICAL RESULTS * Blood glucose, POC (11/20/2015 11:34 AM CDT) Pathologist [facility] Glucose, POC, bld 110 70 - 199 mg/dl CDR HISTORICAL RESULTS Blood specimen (specimen) 11/20/2015 11:34 AM CDT Ofelia Alvarado MD LAB BLOOD ORDERABLES Fin al Result Performing Organization Address [facility] de Phone Number CDR HISTORICAL RESULTS * (ABNORMAL) Plasma prothrombin time (PT) (11/20/2015 9:35 AM CDT) Prothrombin time (PT) 15.7(H) 9.2 - 13.0 seconds CDR HISTORICAL RESULTS INR 1.45(H) 0.90 - 1.20 CDR HIST ORICAL RESULTS Comment: Interpretive Data Inpatient therapeutic ranges* Atrial fibrillation ?2.0-3.0 INR Venous thrombo-embolism ?2.0-3.0 INR Bioprosthetic heart valve ?* Mechanical heart valve, bileaflet or tilting disk,aortic position ? 2.0-3.0 INR All other,or bileaflet or tilting disk, in mitral position ? 2.5-3.5 INR *See the pharmacy resource directory (PHRED) for an updated copy of the Tool Book at [email or web address] Current Interpretive Data was last revised 2011. Plasma 11/20/2015 9:35 AM CDT us Historical Provider LAB BLOOD ORDERABLES Anastasiya enciso Result CDR HISTORICAL RESULTS * (ABNORMAL) Blood cell count (CBC) (11/20/2015 9:35 AM CDT) WBC 2.6(L) 3.8 - 9.9 K/cumm CDR HISTORICAL RESULTS RBC 4.63 4.30 - 5.80 M/cumm CDR HISTORICAL RESULTS Hgb 11.7(L) 13.0 - 17.5 g/dl CDR HISTORICAL RESULTS Hct 36.2(L) 38.9 - 50.3 % CDR HISTORICAL RESULTS MCV 78.2(L) 81.3 - 96.4 fl CDR HISTORICAL RESULTS MCH 25.3(L) 27.1 - 33.3 pg CDR HISTORICAL RESULTS MCHC 32.3 32.3 - 35.7 g/dl CDR HISTORICAL RESULTS Rdw 16.3(H) 11.1 - 14.9 % CDR HISTORICAL RESULTS RDW 46.5 35.7 - 48.1 fl CDR HISTORICAL RESULTS Platelets 69(L) 150 - 400 K/cumm CDR HISTORICAL RESULTS MPV 11.8 9.1 - 12.3 fl CDR HISTORICAL RESULTS NRBC 0.0 0.0 - 0.2 % CDR HIST ORICAL RESULTS NRBC, abs 0.00 0.00 - 0.01 K/cumm CDR HISTORICAL RESULTS Blood specimen (specimen) 11/20/2015 9:35 AM CDT Historical Provider LAB BLOOD ORDERABLES Anastasiya l Result CDR HISTORICAL RESULTS * (ABNORMAL) Blood cell morphologic exam (11/20/2015 9:35 AM CDT) Neutrophils 63.6 % CDR HIST ORICAL RESULTS Immature granulocytes 0.4 % CDR HISTORICAL RESULTS Lymphocytes 15.9 % CDR HIST ORICAL RESULTS Monos 18.2 % CDR HISTOR ICAL RESULTS Eosinophils 1.5 % CDR HIST ORICAL RESULTS Basophils 0.4 % CDR HISTOR ICAL RESULTS Neutrophils, abs 1.7(L) 1.7 - 6.5 K/cumm CDR HISTORICAL RESULTS Immature granulocyte, abs 0.0 0.0 - 0.1 K/cumm CDR HISTORICAL RESULTS Lymphocytes, abs 0.4(L) 0.8 - 3.3 K/cumm CDR HISTORICAL RESULTS Monocytes, absolute 0.5 0.2 - 0.8 K/cumm CDR HISTORICAL RESULTS Eosinophils, abs 0.0 0.0 - 0.5 K/cumm CDR HISTORICAL RESULTS Basophils, abs 0.0 0.0 - 0.1 K/cumm CDR HISTORICAL RESULTS Blood specimen (specimen) 11/20/2015 9:35 AM CDT Historical Provider LAB BLOOD ORDERABLES Anastasiya l Result CDR HISTORICAL RESULTS * Blood glucose, POC (11/20/2015 6:46 AM CDT) Glucose, POC, bld 136 70 - 199 mg/dl CDR HISTORICAL RESULTS Blood specimen (specimen) 11/20/2015 6:46 AM CDT Ofelia Alvarado MD LAB BLOOD ORDERABLES Fin al Result CDR HISTORICAL RESULTS * (ABNORMAL) Blood cell morphologic exam, manual (11/19/2015 11:12 PM CDT) Neutrophils 72.2 % CDR HIST ORICAL RESULTS Lymphocytes 16.5 % CDR HIST ORICAL RESULTS Monos 8.7 % CDR HISTOR ICAL RESULTS Eosinophils 0.8 % CDR HIST ORICAL RESULTS Basophils 0.9 % CDR HISTOR ICAL RESULTS Neutrophilic myelocytes 0.9 % CDR HISTORICAL RESULTS WBC counted 115 # of cells CDR HIS TORICAL RESULTS Neutrophils, abs 1.5(L) 1.6 - 7.0 K/cumm CDR HISTORICAL RESULTS Lymphocytes, abs 0.4(L) 0.5 - 4.3 K/cumm CDR HISTORICAL RESULTS Monocytes, absolute 0.2 0.1 - 1.0 K/cumm CDR HISTORICAL RESULTS Eosinophils, abs 0.0 0.0 - 0.6 K/cumm CDR HISTORICAL RESULTS Basophils, abs 0.0 0.0 - 0.3 K/cumm CDR HISTORICAL RESULTS Immature granulocyte, abs 0.0 0.0 - 0.2 K/cumm CDR HISTORICAL RESULTS Blood specimen (specimen) 11/19/2015 11:12 PM CDT James Holly MD LAB BLOOD ORDERABLES F inal Result CDR HISTORICAL RESULTS * (ABNORMAL) Blood cell count (CBC) (11/19/2015 11:12 PM CDT) WBC 2.1(L) 3.8 - 9.9 K/cumm CDR HISTORICAL RESULTS RBC 4.49 4.30 - 5.80 M/cumm CDR HISTORICAL RESULTS Hgb 11.7(L) 13.0 - 17.5 g/dl CDR HISTORICAL RESULTS Hct 35.5(L) 38.9 - 50.3 % CDR HISTORICAL RESULTS MCV 79.1(L) 81.3 - 96.4 fl CDR HISTORICAL RESULTS MCH 26.1(L) 27.1 - 33.3 pg CDR HISTORICAL RESULTS MCHC 33.0 32.3 - 35.7 g/dl CDR HISTORICAL RESULTS Rdw 16.4(H) 11.1 - 14.9 % CDR HISTORICAL RESULTS RDW 46.5 35.7 - 48.1 fl CDR HISTORICAL RESULTS Platelets 58(L) 150 - 400 K/cumm CDR HISTORICAL RESULTS MPV 12.1 9.1 - 12.3 fl CDR HISTORICAL RESULTS NRBC 0.0 0.0 - 0.2 % CDR HIST ORICAL RESULTS NRBC, abs 0.00 0.00 - 0.01 K/cumm CDR HISTORICAL RESULTS Blood specimen (specimen) 11/19/2015 11:12 PM CDT James Holly MD LAB BLOOD ORDERABLES F inal Result CDR HISTORICAL RESULTS * Serum iron profile (11/19/2015 11:12 PM CDT) Iron 71 50 - 150 mcg/dl CDR HISTORICAL RESULTS UIBC 286 112 - 347 mcg/dl CDR HISTORICAL RESULTS TIBC 357 250 - 400 mcg/dl CDR HISTORICAL RESULTS Transferrin saturation 20 20 - 50 % CDR HISTORICAL RESULTS Serum 11/19/2015 11:1 2 PM CDT Historical Provider LAB BLOOD ORDERABLES Anastasiya l Result Performing Organization Address [facility]/ZIP Co de Phone Number CDR HISTORICAL RESULTS * Serum ferritin (11/19/2015 11:12 PM CDT) Ferritin 35 30 - 400 ng/ml CDR HISTORICAL RESULTS Serum 11/19/2015 11:1 2 PM CDT Richard Archuleta LAB BLOOD ORDERABLES Final Resul t CDR HISTORICAL RESULTS * Blood glucose, POC (11/19/2015 9:39 PM CDT) Glucose, POC, bld 128 70 - 199 mg/dl CDR HISTORICAL RESULTS Blood specimen (specimen) 11/19/2015 9:39 PM CDT Ofelia Alvarado MD LAB BLOOD ORDERABLES Fin al Result CDR HISTORICAL RESULTS * (ABNORMAL) Blood cell count [CBC] express (11/19/2015 6:37 PM CDT) WBC 2.1(L) 3.8 - 9.9 K/cumm CDR HISTORICAL RESULTS RBC 4.64 4.30 - 5.80 M/cumm CDR HISTORICAL RESULTS Hgb 11.8(L) 13.0 - 17.5 g/dl CDR HISTORICAL RESULTS Hct 37.3(L) 38.9 - 50.3 % CDR HISTORICAL RESULTS MCV 80.4(L) 81.3 - 96.4 fl CDR HISTORICAL RESULTS MCH 25.4(L) 27.1 - 33.3 pg CDR HISTORICAL RESULTS MCHC 31.6(L) 32.3 - 35.7 g/dl CDR HISTORICAL RESULTS Rdw 16.5(H) 11.1 - 14.9 % CDR HISTORICAL RESULTS RDW 48.3(H) 35.7 - 48.1 fl CDR HISTORICAL RESULTS NRBC 0.0 0.0 - 0.2 % CDR HIST ORICAL RESULTS NRBC, abs 0.00 0.00 - 0.01 K/cumm CDR HISTORICAL RESULTS Platelets 56(L) 150 - 400 K/cumm CDR HISTORICAL RESULTS MPV 10.7 9.1 - 12.3 fl CDR HISTORICAL RESULTS Blood specimen (specimen) 11/19/2015 6:37 PM CDT Richard Archuleta LAB BLOOD ORDERABLES Final Resul t CDR HISTORICAL RESULTS * Blood glucose, POC (11/19/2015 1:55 PM CDT) Glucose, POC, bld 117 70 - 199 mg/dl CDR HISTORICAL RESULTS Blood specimen (specimen) 11/19/2015 1:55 PM CDT Ofelia Alvarado MD LAB BLOOD ORDERABLES Fin al Result CDR HISTORICAL RESULTS * (ABNORMAL) Blood cell count [CBC] express (11/19/2015 10:23 AM CDT) WBC 1.7(L) 3.8 - 9.9 K/cumm CDR HISTORICAL RESULTS RBC 4.35 4.30 - 5.80 M/cumm CDR HISTORICAL RESULTS Hgb 11.2(L) 13.0 - 17.5 g/dl CDR HISTORICAL RESULTS Hct 35.1(L) 38.9 - 50.3 % CDR HISTORICAL RESULTS MCV 80.7(L) 81.3 - 96.4 fl CDR HISTORICAL RESULTS MCH 25.7(L) 27.1 - 33.3 pg CDR HISTORICAL RESULTS MCHC 31.9(L) 32.3 - 35.7 g/dl CDR HISTORICAL RESULTS Rdw 16.6(H) 11.1 - 14.9 % CDR HISTORICAL RESULTS RDW 48.5(H) 35.7 - 48.1 fl CDR HISTORICAL RESULTS NRBC 0.0 0.0 - 0.2 % CDR HIST ORICAL RESULTS NRBC, abs 0.00 0.00 - 0.01 K/cumm CDR HISTORICAL RESULTS Platelets 57(L) 150 - 400 K/cumm CDR HISTORICAL RESULTS MPV 11.9 9.1 - 12.3 fl CDR HISTORICAL RESULTS Blood specimen (specimen) 11/19/2015 10:23 AM CDT Richard Archuleta LAB BLOOD ORDERABLES Final Resul t Performing Organization Address [facility] de Phone Number CDR HISTORICAL RESULTS * Urinalysis (11/19/2015 9:07 AM CDT) Color, ur Yellow Yellow CDR HISTOR ICAL RESULTS Clarity, ur Clear Clear CDR HIST ORICAL RESULTS Specific gravity, ur 1.017 1.003 - 1.030 CDR HISTORICAL RESULTS pH, ur 5.0 5.0 - 8.0 CDR HISTOR ICAL RESULTS Protein, ur Negative Trace CDR HIST ORICAL RESULTS Glucose, ur Negative Negative CDR HIST ORICAL RESULTS Ketones, ur Negative Negative CDR HIST ORICAL RESULTS Bilirubin, ur Negative Negative CDR HI STORICAL RESULTS U Blood Negative Negative CDR HISTOR ICAL RESULTS Urobilinogen, quant, ur <2.0 <2.0 mg/dl CDR HISTORICAL RESULTS Nitrites, ur Negative Negative CDR HIS TORICAL RESULTS Leukocyte esterase, ur Negative Negative CDR HISTORICAL RESULTS Urine 11/19/2015 9:07 AM CDT Matti Holguin LAB BLOOD ORDERABLES Final Resul t Performing Organization Address [place]/[facility] de Phone Number CDR HISTORICAL RESULTS * Blood glucose, POC (11/19/2015 7:56 AM CDT) Glucose, POC, bld 127 70 - 199 mg/dl CDR HISTORICAL RESULTS Blood specimen (specimen) 11/19/2015 7:56 AM CDT Aung Webb MD LAB BLOOD ORDERABLES Final Result Performing Organization Address [facility] de Phone Number CDR HISTORICAL RESULTS * Blood glucose, POC (11/19/2015 4:40 AM CDT) Glucose, POC, bld 115 70 - 199 mg/dl CDR HISTORICAL RESULTS Blood specimen (specimen) 11/19/2015 4:40 AM CDT Aung Webb MD LAB BLOOD ORDERABLES Final Result Performing Organization Address [facility] de Phone Number CDR HISTORICAL RESULTS * Serum Human Immunodeficiency virus (HIV) 1/2 ab + p24 ag (11/19/2015 4:40 AM CDT) HIV 1/2 ab p24 ag Nonreactive Nonreactive CDR HISTORICAL RESULTS Serum 11/19/2015 4:40 AM CDT Matti Holguin LAB BLOOD ORDERABLES Final Resul t Performing Organization Address [facility] de Phone Number CDR HISTORICAL RESULTS * (ABNORMAL) Blood cell count [CBC] express (11/19/2015 4:40 AM CDT) WBC 2.0(L) 3.8 - 9.9 K/cumm CDR HISTORICAL RESULTS RBC 4.48 4.30 - 5.80 M/cumm CDR HISTORICAL RESULTS Hgb 11.5(L) 13.0 - 17.5 g/dl CDR HISTORICAL RESULTS Hct 35.8(L) 38.9 - 50.3 % CDR HISTORICAL RESULTS MCV 79.9(L) 81.3 - 96.4 fl CDR HISTORICAL RESULTS MCH 25.7(L) 27.1 - 33.3 pg CDR HISTORICAL RESULTS MCHC 32.1(L) 32.3 - 35.7 g/dl CDR HISTORICAL RESULTS Rdw 16.6(H) 11.1 - 14.9 % CDR HISTORICAL RESULTS RDW 47.9 35.7 - 48.1 fl CDR HISTORICAL RESULTS NRBC 0.0 0.0 - 0.2 % CDR HIST ORICAL RESULTS NRBC, abs 0.00 0.00 - 0.01 K/cumm CDR HISTORICAL RESULTS Platelets 61(L) 150 - 400 K/cumm CDR HISTORICAL RESULTS MPV 12.3 9.1 - 12.3 fl CDR HISTORICAL RESULTS Blood specimen (specimen) 11/19/2015 4:40 AM CDT [facility] Si LAB BLOOD ORDERABLES Final Resul t Performing Organization Address [facility] de Phone Number CDR HISTORICAL RESULTS * Blood culture (11/19/2015 4:40 AM CDT) Blood specimen (specimen) (Antecubital, left) 11/19/2015 4:40 AM CDT 11/19/2015 6:03 AM CDT Impressions CDR HISTORICAL RESULTS - 11/25/2015 3:55 AM CDT Blood cultures are incubated for five days on a continuously monitored blood culture system. ??The first report of a negative culture is issued within 24 hours of receipt of the specimen in the laboratory. ??Positive culture results are reported as soon as they are detected. ??For blood cultures with gram-positive cocci, a rapid molecular test for organism identification may be performed using the [employer] Nanosphere Gram Positive Blood Culture Assay. ??The Nanosphere assay detects microbial DNA in positive blood culture broth via hybridization of target DNA to capture oligonucleotides on a microarray. ??This assay has been cleared by the [place] Food and Drug Administration and its performance characteristics have been verified by the [facility]. Current Interpretive Data was last revised on 2013. Narrative CDR HISTORICAL RESULTS - 11/25/2015 3:55 AM CDT No growth us Historical Provider LAB MICROBIOLOGY - GENERA L ORDERABLES Final Result Performing Organization Address [place]/[facility] Co de Phone Number CDR HISTORICAL RESULTS * Blood culture (11/19/2015 4:40 AM CDT) Blood specimen (specimen) (Arm, right) 11/19/2015 4:40 AM CDT 11/19/2015 6:04 AM CDT Impressions CDR HISTORICAL RESULTS - 11/25/2015 3:55 AM CDT Blood cultures are incubated for five days on a continuously monitored blood culture system. ??The first report of a negative culture is issued within 24 hours of receipt of the specimen in the laboratory. ??Positive culture results are reported as soon as they are detected. ??For blood cultures with gram-positive cocci, a rapid molecular test for organism identification may be performed using the [employer] Nanosphere Gram Positive Blood Culture Assay. ??The Nanosphere assay detects microbial DNA in positive blood culture broth via hybridization of target DNA to capture oligonucleotides on a microarray. ??This assay has been cleared by the [place] Food and Drug Administration and its performance characteristics have been verified by the [facility]. Current Interpretive Data was last revised on 2013. Narrative CDR HISTORICAL RESULTS - 11/25/2015 3:55 AM CDT No growth Historical Provider LAB MICROBIOLOGY - GENERA L ORDERABLES Final Result Performing Organization Address City/State/[facility] Co de Phone Number CDR HISTORICAL RESULTS * Blood glucose, POC (11/19/2015 3:13 AM CDT) Pathologist [facility] Glucose, POC, bld 87 70 - 199 mg/dl CDR HISTORICAL RESULTS Blood specimen (specimen) 11/19/2015 3:13 AM CDT Aung Webb MD LAB BLOOD ORDERABLES Final Result CDR HISTORICAL RESULTS * Plasma partial thromboplastin time (PTT) (11/19/2015 1:02 AM CDT) APTT 30.5 25.0 - 37.0 seconds CDR HISTORICAL RESULTS Comment: Interpretive Data Therapeutic heparin range:60.0 - 94.0 sec based on correlation with therapeutic heparin activity range of 0.3 -0.7 Units/mL. Current interpretive data was last revised on 2011. Plasma 11/19/2015 1:02 AM CDT Pranay Boo MD LAB BLOOD ORDERABLES Final R [facility] Performing Organization Address [facility] de Phone Number CDR HISTORICAL RESULTS * (ABNORMAL) Plasma prothrombin time (PT) (11/19/2015 1:02 AM CDT) Prothrombin time (PT) 13.4(H) 9.2 - 13.0 seconds CDR HISTORICAL RESULTS INR 1.24(H) 0.90 - 1.20 CDR HIST ORICAL RESULTS Comment: Interpretive Data Inpatient therapeutic ranges* Atrial fibrillation ?2.0-3.0 INR Venous thrombo-embolism ?2.0-3.0 INR Bioprosthetic heart valve ?* Mechanical heart valve, bileaflet or tilting disk,aortic position ? 2.0-3.0 INR All other,or bileaflet or tilting disk, in mitral position ? 2.5-3.5 INR *See the pharmacy resource directory (PHRED) for an updated copy of the Tool Book at [email or web address] Current Interpretive Data was last revised 2011. Plasma 11/19/2015 1:02 AM CDT Pranay Boo MD LAB BLOOD ORDERABLES Final R ult Performing Organization Address [facility] de Phone Number CDR HISTORICAL RESULTS * (ABNORMAL) Plasma hepatic function panel (11/19/2015 1:02 AM CDT) Protein, pl 8.4 6.5 - 8.5 g/dl CDR HISTORICAL RESULTS Alb 4.3 3.5 - 5.0 g/dl CDR HISTORICAL RESULTS Bilirubin 0.7 0.1 - 1.2 mg/dl CDR HISTORICAL RESULTS Bilirubin, direct <0.2 0.1 - 0.3 mg/dl CDR HISTORICAL RESULTS Alk phos 84 40 - 130 Units/L CDR HISTORICAL RESULTS AST 59(H) 10 - 50 Units/L CDR HISTORICAL RESULTS ALT 49 7 - 55 Units/L CDR HISTORICAL RESULTS Plasma 11/19/2015 1:02 AM CDT Mario Ren MD LAB BLOOD ORDERABLES Final Res ult Performing Organization Address [facility] de Phone Number CDR HISTORICAL RESULTS * Plasma basic metabolic panel (11/19/2015 1:02 AM CDT) Sodium 140 135 - 145 mmol/L CDR HISTORICAL RESULTS K, pl 4.3 3.3 - 4.9 mmol/L CDR HISTORICAL RESULTS Chloride 103 97 - 110 mmol/L CDR HISTORICAL RESULTS CO2 25 22 - 32 mmol/L CDR HISTORICAL RESULTS A. gap 12 2 - 15 mmol/L CDR HISTORICAL RESULTS Glucose 101 70 - 199 mg/dl CDR HISTORICAL RESULTS BUN 10 8 - 25 mg/dl CDR HISTORICAL RESULTS Creatinine 1.00 0.80 - 1.30 mg/dl CDR HISTORICAL RESULTS Calcium 9.6 8.5 - 10.3 mg/dl CDR HISTORICAL RESULTS Plasma 11/19/2015 1:02 AM CDT Mario Ren MD LAB BLOOD ORDERABLES Final Res ult Performing Organization Address [facility] de Phone Number CDR HISTORICAL RESULTS * Serum lipase (11/19/2015 1:02 AM CDT) Lip 50 10 - 99 Units/L CDR HISTORICAL RESULTS Serum 11/19/2015 1:02 AM CDT Mario Ren MD LAB BLOOD ORDERABLES Final Res ult Performing Organization Address [facility] de Phone Number CDR HISTORICAL RESULTS * (ABNORMAL) Blood cell count (CBC) (11/19/2015 1:02 AM CDT) Pathologist [facility] WBC 2.6(L) 3.8 - 9.9 K/cumm CDR HISTORICAL RESULTS RBC 4.85 4.30 - 5.80 M/cumm CDR HISTORICAL RESULTS Hgb 12.3(L) 13.0 - 17.5 g/dl CDR HISTORICAL RESULTS Hct 38.4(L) 38.9 - 50.3 % CDR HISTORICAL RESULTS MCV 79.2(L) 81.3 - 96.4 fl CDR HISTORICAL RESULTS MCH 25.4(L) 27.1 - 33.3 pg CDR HISTORICAL RESULTS MCHC 32.0(L) 32.3 - 35.7 g/dl CDR HISTORICAL RESULTS Rdw 16.6(H) 11.1 - 14.9 % CDR HISTORICAL RESULTS RDW 47.1 35.7 - 48.1 fl CDR HISTORICAL RESULTS Platelets 75(L) 150 - 400 K/cumm CDR HISTORICAL RESULTS MPV 12.0 9.1 - 12.3 fl CDR HISTORICAL RESULTS NRBC 0.0 0.0 - 0.2 % CDR HIST ORICAL RESULTS NRBC, abs 0.00 0.00 - 0.01 K/cumm CDR HISTORICAL RESULTS Blood specimen (specimen) 11/19/2015 1:02 AM CDT Mario Ren MD LAB BLOOD ORDERABLES Final Res ult Performing Organization Address [facility] Co de Phone Number CDR HISTORICAL RESULTS * Blood ABO, Rh, indirect ab screen (11/19/2015 1:02 AM CDT) Pathologist [facility] ABO, Rho(D) A Positive CDR HIS TORICAL RESULTS Steve, indirect Negative CDR HISTORICAL RESULTS Blood specimen (specimen) 11/19/2015 1:02 AM CDT Mario Ren MD LAB BLOOD ORDERABLES Final Res ult Performing Organization Address [facility] Co de Phone Number CDR HISTORICAL RESULTS * (ABNORMAL) Blood cell morphologic exam (11/19/2015 1:02 AM CDT) Pathologist [facility] Monos 17.3 % CDR HISTOR ICAL RESULTS Neutrophils 61.9 % CDR HIST ORICAL RESULTS Eosinophils 1.5 % CDR HIST ORICAL RESULTS Immature granulocytes 0.4 % CDR HISTORICAL RESULTS Basophils 0.8 % CDR HISTOR ICAL RESULTS Lymphocytes 18.1 % CDR HIST ORICAL RESULTS Neutrophils, abs 1.6(L) 1.7 - 6.5 K/cumm CDR HISTORICAL RESULTS Immature granulocyte, abs 0.0 0.0 - 0.1 K/cumm CDR HISTORICAL RESULTS Lymphocytes, abs 0.5(L) 0.8 - 3.3 K/cumm CDR HISTORICAL RESULTS Monocytes, absolute 0.4 0.2 - 0.8 K/cumm CDR HISTORICAL RESULTS Eosinophils, abs 0.0 0.0 - 0.5 K/cumm CDR HISTORICAL RESULTS Basophils, abs 0.0 0.0 - 0.1 K/cumm CDR HISTORICAL RESULTS Blood specimen (specimen) 11/19/2015 1:02 AM CDT Mario Ren MD LAB BLOOD ORDERABLES Final Res ult CDR HISTORICAL RESULTS * Blood glucose, POC (11/19/2015 12:25 AM CDT) [facility] Glucose, POC, bld 94 70 - 199 mg/dl CDR HISTORICAL RESULTS Blood specimen (specimen) 11/19/2015 12:25 AM CDT Historical Provider LAB BLOOD ORDERABLES Anastasiya l Result CDR HISTORICAL RESULTS documented in this encounter Visit Diagnoses Diagnosis Portal hypertension (CMS/HCC) (HCC) Portal hypertension Secondary esophageal varices with bleeding (CMS/HCC) (HCC) Hematemesis Other cirrhosis of liver (HCC) Other neutropenia (CMS/HCC) (HCC) Other neutropenia Type 2 diabetes mellitus without complications (CMS/HCC) (HCC) Iron deficiency anemia Unspecified iron deficiency anemia Essential (primary) hypertension Unspecified essential hypertension Hypersplenism Nonalcoholic steatohepatitis (BLAND) Other diseases of stomach and duodenum 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
--- OUTSIDE RECORDS SUMMARY | 2024-04-19 23:10 | XMS_ITS | Encounter Summary ---
Author Organization [facility] Facility Care Team Providers Care Buffer Operator Name Role Phone Unavailable Primary Care Provider Unavailabl e Encounter Details Date Type Department Care Team (Late st Contact Info) Description 12/24/2015 8:17 AM CDT - 12/24/2015 11:59 PM CDT Hospital Encounter [facility] Kathryn Yang MD [address] [address] Cirrhosis of liver (CMS/HCC) Social History Tobacco Use Types Packs/Day Years Used Date Smoking Tobacco: Never Assessed Sex and Gender Information Value Date Recorded Sex Assigned at Not on file Legal Sex Male 2:52 PM [employer] Gender Identity Male 10/29/2020 12:37 PM CDT [...] as of this encounter Visit Diagnoses Diagnosis Cirrhosis of liver (HCC) Cirrhosis of liver without mention of alcohol documented in this encounter
--- OUTSIDE RECORDS SUMMARY | 2024-04-19 23:10 | XMS_ITS | Encounter Summary ---
Author Organization [facility] Facility Care Team Providers Care Clinical Application Consultant Name Role Phone Unavailable Primary Care Provider Unavailabl e Encounter Details Date Type Department Care Team (Latest Contact Info) Description 10/02/2015 12:07 PM CDT - 10/02/2015 11:59 PM CDT Hospital Encounter [facility] Samaria Yang MD [address] [address] Cirrhosis of liver (CMS/HCC); Non-rheumatic tricuspid valve insufficiency; Calculus of bile duct without cholangitis or cholecystitis without obstruction; Hepatic failure, without coma (CMS/HCC); History of colonic polyps; Personal history of other diseases of the digestive system; Low back pain Social History Tobacco Use Types Packs/Day Years Used Date Smoking Tobacco: Never Assessed Sex and Gender Information Value Date Recorded Sex Assigned at Not on file Legal Sex Male 2:52 PM [employer] Gender Identity Male 10/29/2020 12:37 PM [...] Name Priority Date/Time Associated Diagnosis Comments US ABDOMINAL ORGAN DUPLEX Routine 10/02/2015 1:46 PM CDT US ABDOMEN LIMITED Routine 10/02/2015 1: 46 PM CDT VLWU DUPLEX SCAN OF AORTA; INFERIOR VENA CAVA, ILIAC, COMPLETE BILATERAL Routine 10/02/2015 1:01 PM CDT TRANSTHORACIC ECHO (TTE) COMPLETE W DOPPLER/CF WO CONTRAST 10/02/2015 documented in this encounter Results * US Abdominal Organ Duplex (10/02/2015 1:46 PM CDT) Anatomical Region Laterality Modality Vascular N/A Ultrasound 10/02/2015 1:46 PM CDT Narrative 10/02/2015 2:12 PM CDT KARL GIBSON M.D. FINAL REPORT ACC# ??Date Time ??Exam [id number] October 02, 2015 13:46:00 [id number] Abd Orgn Duplex [id number] October 02, 2015 13:46:00 [id number] Sono Abd Lmtd EXAMINATION: ? Right upper quadrant sonogram. Liver Doppler. HISTORY: ??Biliary colic, hepatic encephalopathy, history of esophageal varices. Show normal echogenicity, is slightly coarsened echotexture, COMPARISON: Prior examinations dated 08/22/2015 and 08/23/2015. FINDINGS: ?? Right upper quadrant sonogram: Evaluation is limited by abundant upper abdominal bowel gas. The gallbladder is partially visualized but appears normal. The stone seen on the prior examination are not identified currently. The gallbladder is slightly contracted. Views of the liver show normal echogenicity, a coarsened architecture, and a smooth surface. No focal lesions are seen and there is no intrahepatic bile duct dilatation. The proximal common bile duct can be visualized and is normal in diameter measuring 5 mm. The pancreas is obscured by overlying bowel gas. 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 The visualized portions of the abdominal aorta are normal in diameter. Liver Doppler: Color Doppler and pulse Doppler spectral analysis was performed. The main portal vein, right portal vein, and left portal vein are patent with antegrade flow and no thrombosis. The right, middle, and left hepatic veins are patent with antegrade flow, normal waveforms, and no thrombosis. The intrahepatic portion of inferior vena cava and the hepatic artery are both patent with antegrade flow. IMPRESSION: ?? 1. Limited examination due to abundant bowel gas. 2. Liver cirrhosis with no focal lesions identified. 3. Patent hepatic vasculature with no evidence of thrombosis. Requested By: SAMARIA COLINDRES M.D. Dictated By: ?? KARL GIBSON M.D. ??on Oct 02 2015 ??2:12P This document has been electronically signed by: KARL GIBSON M.D. on Oct 02 2015 ??2:12P [id number] Procedure Note Provider, MD Tyler - 08/24/2016 KARL GIBSON M.D. FINAL REPORT ACC# Date Time Exam [id number] October 02, 2015 13:46:00 [id number] Abd Orgn Duplex [id number] October 02, 2015 13:46:00 [id number] Sono Abd Lmtd EXAMINATION: Right upper quadrant sonogram. Liver Doppler. HISTORY: Biliary colic, hepatic encephalopathy, history of esophageal varices. Show normal echogenicity, is slightly coarsened echotexture, COMPARISON: Prior examinations dated 08/22/2015 and 08/23/2015. FINDINGS: Right upper quadrant sonogram: Evaluation is limited by abundant upper abdominal bowel gas. The gallbladder is partially visualized but appears normal. The stone seen on the prior examination are not identified currently. The gallbladder is slightly contracted. Views of the liver show normal echogenicity, a coarsened architecture, and a smooth surface. No focal lesions are seen and there is no intrahepatic bile duct dilatation. The proximal common bile duct can be visualized and is normal in diameter measuring 5 mm. The pancreas is obscured by overlying bowel gas. 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 The visualized portions of the abdominal aorta are normal in diameter. Liver Doppler: Color Doppler and pulse Doppler spectral analysis was performed. The main portal vein, right portal vein, and left portal vein are patent with antegrade flow and no thrombosis. The right, middle, and left hepatic veins are patent with antegrade flow, normal waveforms, and no thrombosis. The intrahepatic portion of inferior vena cava and the hepatic artery are both patent with antegrade flow. IMPRESSION: 1. Limited examination due to abundant bowel gas. 2. Liver cirrhosis with no focal lesions identified. 3. Patent hepatic vasculature with no evidence of thrombosis. Requested By: SAMARIA COLINDRES M.D. Dictated By: KARL GIBSON M.D. on Oct 02 2015 2:12P This document has been electronically signed by: KARL GIBSON M.D. on Oct 02 2015 2:12P [id number] us Historical Provider MD PATEL US PROCEDURES Final R esult * US Abdomen Limited (10/02/2015 1:46 PM CDT) Anatomical Region Laterality Modality Abdomen N/A Ultrasound 10/02/2015 1:46 PM CDT Narrative 10/02/2015 2:12 PM CDT KARL GIBSON M.D. FINAL REPORT ACC# ??Date Time ??Exam [id number] October 02, 2015 13:46:00 [id number] Abd Orgn Duplex [id number] October 02, 2015 13:46:00 [id number] Sono Abd Lmtd EXAMINATION: ? Right upper quadrant sonogram. Liver Doppler. HISTORY: ??Biliary colic, hepatic encephalopathy, history of esophageal varices. Show normal echogenicity, is slightly coarsened echotexture, COMPARISON: Prior examinations dated 08/22/2015 and 08/23/2015. FINDINGS: ?? Right upper quadrant sonogram: Evaluation is limited by abundant upper abdominal bowel gas. The gallbladder is partially visualized but appears normal. The stone seen on the prior examination are not identified currently. The gallbladder is slightly contracted. Views of the liver show normal echogenicity, a coarsened architecture, and a smooth surface. No focal lesions are seen and there is no intrahepatic bile duct dilatation. The proximal common bile duct can be visualized and is normal in diameter measuring 5 mm. The pancreas is obscured by overlying bowel gas. 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 The visualized portions of the abdominal aorta are normal in diameter. Liver Doppler: Color Doppler and pulse Doppler spectral analysis was performed. The main portal vein, right portal vein, and left portal vein are patent with antegrade flow and no thrombosis. The right, middle, and left hepatic veins are patent with antegrade flow, normal waveforms, and no thrombosis. The intrahepatic portion of inferior vena cava and the hepatic artery are both patent with antegrade flow. IMPRESSION: ?? 1. Limited examination due to abundant bowel gas. 2. Liver cirrhosis with no focal lesions identified. 3. Patent hepatic vasculature with no evidence of thrombosis. Requested By: SAMARIA COLINDRES M.D. Dictated By: ?? KARL GIBSON M.D. ??on Oct 02 2015 ??2:12P This document has been electronically signed by: KARL GIBSON M.D. on Oct 02 2015 ??2:12P Procedure Note Provider, MD Tyler - 08/24/2016 KARL GIBSON M.D. FINAL REPORT ACC# Date Time Exam [id number] October 02, 2015 13:46:00 [id number] Abd Orgn Duplex [id number] October 02, 2015 13:46:00 [id number] Sono Abd Lmtd EXAMINATION: Right upper quadrant sonogram. Liver Doppler. HISTORY: Biliary colic, hepatic encephalopathy, history of esophageal varices. Show normal echogenicity, is slightly coarsened echotexture, COMPARISON: Prior examinations dated 08/22/2015 and 08/23/2015. FINDINGS: Right upper quadrant sonogram: Evaluation is limited by abundant upper abdominal bowel gas. The gallbladder is partially visualized but appears normal. The stone seen on the prior examination are not identified currently. The gallbladder is slightly contracted. Views of the liver show normal echogenicity, a coarsened architecture, and a smooth surface. No focal lesions are seen and there is no intrahepatic bile duct dilatation. The proximal common bile duct can be visualized and is normal in diameter measuring 5 mm. The pancreas is obscured by overlying bowel gas. 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 The visualized portions of the abdominal aorta are normal in diameter. Liver Doppler: Color Doppler and pulse Doppler spectral analysis was performed. The main portal vein, right portal vein, and left portal vein are patent with antegrade flow and no thrombosis. The right, middle, and left hepatic veins are patent with antegrade flow, normal waveforms, and no thrombosis. The intrahepatic portion of inferior vena cava and the hepatic artery are both patent with antegrade flow. IMPRESSION: 1. Limited examination due to abundant bowel gas. 2. Liver cirrhosis with no focal lesions identified. 3. Patent hepatic vasculature with no evidence of thrombosis. Requested By: SAMARIA COLINDRES M.D. Dictated By: KARL GIBSON M.D. on Oct 02 2015 2:12P This document has been electronically signed by: KARL GIBSON M.D. on Oct 02 2015 2:12P Historical Provider IMG US PROCEDURES Final R esult * US Duplex Scan of Aorta; Inferior Vena Cava, Iliac, Complete (10/02/2015 1:01 PM CDT) Anatomical Region Laterality Modality Vascular Ultrasound 10/02/2015 1:01 PM CDT Historical Provider CV VASCULAR PROCEDURES Fi nal Result * TRANSTHORACIC ECHO (TTE) COMPLETE W DOPPLER/CF WO CONTRAST (10/02/2015) Anatomical Region Laterality Modality Ultrasound Narrative 10/02/2015 Ordered by an unspecified provider. Historical Provider CV ECHO PROCEDURES Final Result documented in this encounter Visit Diagnoses Diagnosis Cirrhosis of liver (HCC) Cirrhosis of liver without mention of alcohol Non-rheumatic tricuspid valve insufficiency Calculus of bile duct without cholangitis or cholecystitis without obstruction Hepatic failure, without coma (CMS/HCC) (HCC) History of colonic polyps Personal history of colonic polyps Personal history of other diseases of the digestive system Low back pain Lumbago documented in this encounter
--- OUTSIDE RECORDS SUMMARY | 2024-04-19 23:10 | XMS_ITS | Encounter Summary ---
Author Organization [facility] Healthcare Address [address] [place] [address] Care Team Providers Care Ic Design Engineer Name Role Phone Unavailable Primary Care Provider Unavailabl e Encounter Details Date Type Department Care Team (Latest Contact Info) Description 11/02/2015 10:59 PM CDT - 11/05/2015 2:56 PM CDT Hospital Encounter [place] [id number] [facility] [address] [place] [address] Cirrhosis of liver (CMS/HCC); Secondary esophageal varices with bleeding (CMS/HCC); Thrombocytopenia (CMS/HCC); Portal hypertension (CMS/HCC); Acute posthemorrhagic anemia; Nonalcoholic steatohepatitis (BLAND); Other diseases of stomach and duodenum; Hepatic failure, without coma (CMS/HCC); Type 2 diabetes mellitus without complications (CMS/HCC); Anxiety disorder; Post-traumatic stress disorder; Bipolar disorder (CMS/HCC); Overweight; Other chronic pain; Personal history of nicotine dependence; Allergy status to penicillin Social History Tobacco Use Types Packs/Day Years Used Date Smoking Tobacco: Never Assessed Sex and Gender Information Value Date Recorded Sex Assigned at Not on file 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 Gender Identity Male 10/29/2020 12:37 PM CDT Sexual Orientation Straight 10/29/2020 12 :37 PM CDT documented as of this encounter Last Filed Vital Signs Vital Sign Reading Time Taken Comments Blood Pressure 128/84 11/05/2015 1:35 PM CDT Pulse 64 11/05/2015 1:35 PM CDT Temperature - - Respiratory Rate - - Oxygen Saturation - - Inhaled Oxygen Concentration - - Weight 107 kg (235 lb 14.3 oz) 11/03/2015 12:15 AM CDT Height 172.7 cm (5' 7.99 ) 11/02/2015 11:30 PM C DT Body Mass Index 35.88 11/02/2015 11:30 PM CDT documented in this encounter Discharge Summaries * Provider, MD Tyler - 11/05/2015 12:00 AM CDT DISCHARGE SUMMARY Patient: CAMILO CURRY Account: [id number] Room No: 522-02 : 1970 Patient Type: IP Attend.: Ankush Parada M.D. Admit Date: 11/02/2015 Dict.: Ankush Parada M.D. Disch. Date: 11/05/2015 The history and physical is dictated by me and included review of systems. It is not repeated here. ADMITTING DIAGNOSES Hematemesis, acute anemia, grade 3 esophageal varices, thrombocytopenia, type 2 diabetes, anxiety. DISCHARGE DIAGNOSES 1. Hematemesis secondary to varices. The patient had and esophagogastroduodenoscopy done this morning. Additional banding has been done. No evidence of acute bleeding at this time. The patient will be discharged to home on Protonix 40 mg b.i.d. 2. Acute anemia secondary to blood loss from hematemesis. Hemoglobin has been stable. There has been no need to transfuse at this time. 3. History of grade 3 esophageal varices secondary to cirrhosis of the liver. 4. Thrombocytopenia, this is stable, secondary to underlying liver disease. 5. Type 2 diabetes. The patient to continue metformin. DISCHARGE MEDICATIONS At time of discharge: 1. Vicodin q.4 hours p.r.n. 2. Nadolol 20 mg daily. 3. Xanax 0.5 b.i.d. p.r.n. 4. Trazodone 100 mg daily. 5. Metformin 500 mg b.i.d. 6. Protonix 40 mg b.i.d. 7. Lactulose daily. 8. Zofran 4 mg q.6 hours p.r.n. CONSULTANTS ON CASE Dr. Whitaker, GI. PROCEDURES PERFORMED DURING HOSPITAL COURSE Includes an upper endoscopy performed by Dr. Whitaker on November 05, 2015. Findings showed esophageal varices, status post banding. LABS AND STUDIES THAT ARE PENDING The biopsies from the procedure. This is currently pending. LABS AT TIME OF DISCHARGE Sodium is 121, potassium 3.8, chloride is 101 BUN is 11, creatinine is 1.10, glucose is 20, AST 68, ALT is 58, alkaline phosphatase is 74, calcium is 8.9. WBC is 3.79, hemoglobin is 11.5, hematocrit is 36.5, platelets 58. DISCHARGE PHYSICAL EXAMINATION Vital Signs: Stable, afebrile. General: Alert, not in acute distress. HEENT: Normocephalic, atraumatic. Eyes: Normal sclerae, normal conjunctivae. CVS: Regular rate and rhythm. Chest: Clear to auscultation bilaterally. No crackles. Abdomen: Soft, nontender, nondistended. Bowel sounds present. Extremities: No pedal edema. No calf tenderness. HOSPITAL COURSE This is a 45-year-old male who has history of established esophageal varices and cirrhosis of the liver. Was brought to the hospital from a different facility with complaint of hematemesis. The patient has had several endoscopies in the past couple of months performed at [facility]. He has had 2 endoscopy procedures and has had a total of [address] There was a concern for additional varices requiring banding procedure. The patient was initially sent to the ICU for close monitoring. He has not required any transfusion as H and H have been stable and he found. The patient was started on octreotide drip. GI was consulted. Dr. Whitaker evaluated the patient. The patient had upper endoscopy just done this morning which showed additional finding of esophageal varices requiring banding. Banding has been done. The patient tolerated the procedure well and is doing quite well. The patient has now been stable for discharge by GI. The patient will be discharged to home on Protonix 40 mg b.i.d., along with the rest of his home medications, see above. DISCHARGE DIET Low-fat, low-cholesterol diet. DISCHARGE ACTIVITY Rest today, increase tomorrow as tolerated. FOLLOWUP With primary care physician in 3 to 5 days. TIME SPENT Total of 35 minutes. DISPOSITION To home. CODE STATUS One. Electronically Authenticated by: Ankush Parada MD On 11/07/2015 11:09 AM CDT Ankush Parada M.D. HQ/ams TD: 11/06/2015 07:19 CC: Amber Miller M.D. documented in this encounter Medications at Time [...] H&P Notes * Provider, MD Tyler - 11/02/2015 12:00 AM CDT HISTORY AND PHYSICAL Patient: CAMILO CURRY Account: [id number] Room No: 522-02 : 1970 Patient Type: IP Attend.: Ankush Parada M.D. Admit Date: 11/02/2015 Dict.: Ankush Parada M.D. Disch. Date: PRIMARY CARE PHYSICIAN Sean Morfin MD ADMITTING SERVICE [facility] Service CHIEF COMPLAINT Hematemesis. HPI This is a 45-year-old male who recently was diagnosed and worked up for stage 4 non-alcoholic steatohepatitis BLAND (cirrhosis as well as stage 3 esophageal varices). Comes to the hospital with complaint yet again another episode of hematemesis. Patient reports all of his symptoms started 4-5 months ago when he was noticing bright red blood on his pillow when waking up. The patient went to the hospital to get evaluated and the patient went to the hospital to get evaluated and was noted to have findings and had an EEG done at that time. At that time the EEG revealed grade 3 esophageal varices with high- risk stigmata. Seven bands were placed during that time. The patient was discharged to home on PPI as well as for liquid and soft diet. The patient states that he started developing these symptoms again and was again scoped over 1 month ago at which time he was again noted to have esophageal varies and required additional banding. Since then, the patient states that he has had an occasional melanotic stool but the symptoms are overall doing much better. In the past couple of days, the patient states that he started having hematemesis. He became concerned and notified his physician who instructed him to immediately go to the hospital for evaluation. Since coming to the hospital, the patient states that he has had one episode of emesis which he thinks was coffee-ground. The patient denies any melanotic stools at this time. The patient states that he is overall feeling much better. The patient denies any history of alcohol abuse. States that he last drank alcohol 13 years ago but even when he drank, he states that he was a very light user. REVIEW OF SYSTEMS Patient denies any fevers or chills. Denies any change in appetite or activity. HEENT: Denies any facial pain, facial swelling, neck pain, neck stiffness. Eyes: Denies any visual changes. CVS: Denies any chest pain. Respiratory: Denies any dyspnea. GI: Positive for nausea and vomiting. All other review of systems are negative. PAST MEDICAL HISTORY 1. Stage 4 cirrhosis secondary to non-alcoholic steatohepatitis. 2. Grade 3 esophageal varices. 3. Type 2 diabetes. SOCIAL HISTORY Patient denies tobacco use and alcohol use. He states he last consumed alcohol and tobacco 13 years ago. Even at that time he states he was a light alcohol user. Patient denies tobacco use. Patient states that he previously admits to a 20 pack year history. Denies IV drug use. FAMILY HISTORY Noncontributory. ALLERGIES PENICILLIN, SULFA, AZITHROMYCIN, NEXIUM, IV CONTRAST DYE. HOME MEDICATIONS 1. Xanax b.i.d. p.r.n. 2. Vicodin q.4 hours p.r.n. 3. Lactulose 10 g daily. 4. Metformin 500 mg b.i.d. 5. Nadolol 20 mg daily. 6. Prilosec b.i.d. 7. Trazodone 100 mg daily. 8. Zofran 4 mg q.6 hours p.r.n. Vital signs: Blood pressure is 106/53. Pulse is 50. Respirations are 12. Oxygen saturation is 98%. Temperature is 97.9. General: Alert, not in acute distress. HEENT: Normocephalic, atraumatic. Eyes: Normal sclerae, normal conjunctivae. CVS: Regular rate and rhythm. Chest: Clear to auscultation bilaterally. No wheezes or crackles. Abdomen: Soft, nontender, nondistended. Bowel sounds present. Extremities: No pedal edema. No calf tenderness. Skin: No obvious lesions or rashes visible. Musculoskeletal: No gross abnormality noted. Neuro: Alert. Appears to move all extremities. Psych: Mood and affect is appropriate. LABORATORY DATA Sodium 137, potassium 3.7, chloride 105, bicarb 27, BUN 7, creatinine 0.84, AST 29, ALT 43, alk phos 75, calcium 8.6. WBC , hemoglobin , hematocrit 38.2, platelets are 65. ASSESSMENT AND PLAN This is a 45-year-old male who comes to the hospital complaining of - 1. Hematemesis likely secondary to stage 3 esophageal varices. Patient had several banding procedures done in the past several months. The last banding was a little over 1 month ago. The patient's vital signs are currently stable. He is on IV fluids. The patient's hemoglobin is also stable. No evidence of any acute GI bleed. At this time, we will continue to monitor the patient conservatively. We will keep on IV Protonix. Given his history of esophageal varices requiring banding, we will have GI evaluate. At present, the patient is hemodynamically stable and there is no evidence of any acute GI bleeding. 2. Acute anemia secondary to acute on chronic blood loss secondary to hematemesis. The patient's hemoglobin is definitely stable. We will monitor with daily CBCs. 3. History of grade 3 esophageal varices. This was noted on recent esophagogastroduodenoscopies. This is secondary to cirrhosis of the liver. The patient denies history of heavy alcohol use. 4. Thrombocytopenia. Platelets are 65. This is likely secondary to underlying liver disease, i.e., cirrhosis of the liver. We will continue to monitor daily CBCs. 5. History of type 2 diabetes. We will hold Metformin for now. We will monitor Accu-Cheks a.c. and q.h.s. and adjust the low-dose sliding scale as needed. 6. History of anxiety. The patient is on Xanax, trazodone and will continue at this time. 7. Fluids, electrolytes, and nutrition. Electrolytes are stable. Will keep NPO until evaluated by GI. 8. Deep venous thrombosis prophylaxis. Will keep on SCD's and TEDs. Electronically Authenticated by: Ankush Parada MD On 11/04/2015 09:25 AM CDT Ankush Parada M.D. /[facility] TD: 11/03/2015 12:41 CC: Sean Morfin MD documented in this encounter Consult Notes * Provider, MD Tyler - 11/03/2015 12:00 AM CDT CONSULTATION REPORT Patient: CAMILO CURRY Service Date: 11/03/2015 Account: [id number] Room No: 522-02 : 1970 Patient Type: IP Attend.: Ankush Parada M.D. Admit Date: 11/02/2015 Consult.: Ayana Jose M.D. Disch. Date: 11/05/2015 CONSULTING PHYSICIAN Ayana Jose MD This dictation documents the full critical care consultation. Consultation done at the request of the transferring physician, and also the emergency department and also the request of the accepting physician Dr. Parada, Internal Medicine. REASON FOR CONSULTATION 1. Gastrointestinal bleeding. 2. Anemia. 3. History of liver failure and cirrhosis BLAND. 4. History of gastroesophageal varices and previous banding procedures. There is no history of cholecystitis and chronic abdominal pain. 5. Questionable history of pancreatitis. 6. Diabetes mellitus on oral hypoglycemic agents. 7. History of depression and suicide attempts. 8. History of chronic pain. 9. History of smoking, query COPD. CHIEF COMPLAINT Gastrointestinal bleeding. HISTORY OF PRESENT ILLNESS AND FULL CONSULTATION The patient is a 45-year-old male who is overweight and is seen in the intensive care unit after transfer from an [facility]. The patient presented to the emergency department there complaining of gastrointestinal bleeding. The patient had at least 2 or 3 episodes of significant emesis with bloody features, apparently 100 to 200 mL at least each. The patient appeared uncomfortable, appeared to have mild respiratory distress at the time and also he was complaining of diffuse abdominal pain. The patient has a history of chronic pain. He lives at home with a significant other. The patient has children. The patient is disabled. 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 There is a history of polysubstance abuse with the patient using in the past methamphetamines and heroin and crack. The patient apparently has not been touching drugs and has been clean for several years. No alcohol noted. There is a history of heavy smoking. There is a history of diabetes mellitus controlled on oral agents and history of chronic pain for which the patient takes regularly pain medication and oxycodone. There is a history of depression for which the patient also has a previously documented suicidal attempt with several cuts on his extremities. The patient has been developing BLAND non-alcoholic steatohepatitis and hepatitis with resultant cirrhosis and liver failure. The patient has been followed at the [facility] and also he has a history of cholecystitis treated earlier this year. According to the laboratory workup however, the patient has no recurrent ascites, no encephalopathy, no coagulation problems and no high bilirubin and low albumin. Therefore, he certainly qualifies for a low grade Child-Hobson score possibly class A. The patient had no significant events documented lately and of note, he was previously banded and had banding of the gastroesophageal varices earlier this year. Again, no associated episode to start this gastrointestinal bleeding. The patient was seen in the emergency department and he appeared to be overall hemodynamically stable. The patient was transferred here where he arrived hemodynamically stable, with no significant shortness of breath. The patient continued to have dry heaves and he actually had another episode of bloody emesis which was self-limiting. Laboratory workup as mentioned shows mildly contracted renal function and no significant cirrhosis acute features at this time. PAST MEDICAL HISTORY Positive for: 1. Diabetes mellitus controlled on hypoglycemic agents. 2. Diagnosis of cirrhosis of the liver. No liver biopsy has been documented yet. The patient has BLAND non-alcoholic steatohepatitis. 3. History of polysubstance abuse with crack, cocaine and methamphetamines. 4. Documented gastroesophageal varices with portal hypertension and previous banding procedures. 5. Diabetes mellitus as mentioned, controlled on metformin. 6. History of depression and suicidal attempts documented with several scars. 7. History of previous heavy smoking for possibly 20 years at least. The patient now quit. 8. History of chronic pain. PAST SURGICAL HISTORY Positive for esophagogastroduodenoscopy and banding procedures. ALLERGIES THE PATIENT HAS AN ALLERGY TO PENICILLIN DRUGS CAUSING RESPIRATORY FAILURE AND ALSO ERYTHROMYCIN CAUSING HIVES. PATIENT CANNOT TOLERATE NEXIUM AND ALSO INTRAVENOUS CONTRAST DYE IS NOTED A POSSIBLE CAUSE OF SWELLING. HOME MEDICATIONS Include: 1. Hydrocodone 5/325 mg p.o. every 4 hours for chronic pain. 2. Metformin 500 mg p.o. twice a day. 3. Xanax 0.5 mg p.o. twice a day or 3 times a day as needed for anxiety. 4. Zofran for nausea almost on a daily basis. 5. Omeprazole 20 mg p.o. daily. 6. Nadolol 20 mg p.o. twice a day. 7. Lactulose 10 mg p.o. daily. FAMILY HISTORY Positive for colon cancer in an uncle, esophageal cancer in the father and ovarian cancer in the mother. SOCIAL HISTORY Shows that the patient has children and is living with a significant other. There is no history of alcohol. There is a history of heavy smoking for 20+ years. The patient now quit smoking. 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 The patient has a history of remote drug use including marijuana, methamphetamine and crack. REVIEW OF SYSTEMS Obtained by the family, medical records, the staff shows that: Constitutionally: Is within normal limits. No unexplained weight loss. No recurrent fever or chills. Integument: Appears intact. No recurrent rash. No decubitus ulcer. No significant skin breakdown. Eye System: Appears negative. Ear, Nose and Throat System: Appears negative. Respiratory System: History of smoking. Cardiovascular System: No significant documents. Gastrointestinal System: History of BLAND as noted above and banding of gastroesophageal varices and cholecystitis. Endocrine System: History of diabetes mellitus treated with metformin. Genitourinary System: Appears negative. Musculoskeletal System: Appears negative. Neurologic System: No accidents. Psychiatric System: There is a history of depression and previous suicidal attempts. Immunologic/Allergic System: Appears negative. Hematological/Lymphoid System: Appears negative. PHYSICAL EXAMINATION Upon arrival shows a blood pressure of 128/65, heart rate is 80 to 85 beats per minute, appears to be regular sinus activation. No ST changes noted. Respiratory rate is 14 to 16 breaths per minute, appears to be mildly labored. Oxygen saturation on 2 L nasal cannula is 98%. Temperature is 98.2. Head: Normocephalic, atraumatic. Neck: Supple. No jugular venous distention. No mass. No bruits. No tracheal deviation. Chest: Clear to auscultation. There are bilateral breath sounds. No rhonchi. No rales. Heart: Sounds are clear S1, S2. There appears to be no murmur, no rub and no gallop at this time. Abdomen: Soft. Appears to be slightly distended with possible fluid. The abdomen is benign. There is no costovertebral angle tenderness. There is no subcostal tenderness. Back: Clear. No trauma or decubitus Rectal Exam: Is deferred at this time. The external genitals appear within normal limits. Arms and Legs: Appear to have preserved range of motion and minimal osteoarthritis. There are no contractures and no deformities. There is some diffuse obesity. Capillary refill appears normal less than 2 seconds. The patient has palpable pulse in the femoral, pedal and radial locations. There is no cellulitis and no significant edema in the lower extremities. There are no ulcerations. Neurologic Examination: Shows that the pupils are equally reactive to light. Extraocular muscles appear within normal limits. The cranial nerves appear grossly intact. There appears to be no asymmetry. No nasolabial fold flattening. No facial droop. The patient is obeying commands with upper and lower extremities and appears to have equal bilateral strength. Also there are normal reflexes and normal gag, normal corneal, normal dorsiflexion plantar. Patient appears to have no deficit and he is cooperative. The patient appears to be somewhat withdrawn, but is oriented to space and time. Review of the laboratory workup and x-rays which are done in full like I do for every consultation shows that the patient had previous transthoracic echocardiogram earlier this year showing overall preserved systolic and diastolic function. Chest x-ray upon arrival showed some mild cardiomegaly and no significant diffuse workup at this time shows initial glucose of 140. Troponin is 0.03. Phosphorus is 4.0, magnesium is 1.8. Lipase is 27, lactic acid is 1.9. Hemoglobin A1c is 6.8. Cortisol level is 12.8. Ionized calcium is 4.3. Amylase is 86. TSH 1.5. INR is 1.5. CBC shows a white count of 3.6, hemoglobin 11.6, platelets count 65. Electrolyte panel shows a BUN of 7, glycemia 142, sodium 137, potassium 3.7, chloride 105, carbon dioxide 27, creatinine of 0.8. AST and ALT of 49 and 43, alkaline phosphatase 75, calcium 8.6, bilirubin 1.2, plasma protein 6.9, albumin 3.6, globulin 3.3, anion gap of 9. IMPRESSION AND PLAN The patient will be under observation and will be worked up by Gastrointestinal Medicine, possibly repeat upper endoscopy. Standard proton pump inhibitor GI protection will be delivered to the patient twice a day and the patient will be on insulin sliding scale for glycemia control. DVT precaution with sequential compression stockings will be implemented and no hyperbarics will be given at this time. The patient will be hydrated and also blood cultures will be sent due to the thrombocytopenia and to rule out any other possible impending or associated cause. Thanks very much for allowing us to see this patient. Will follow along as needed in the ICU. Electronically Authenticated by: Ayana Jose MD On 11/06/2015 11:37 PM CDT Ayana Jose M.D. PM/ams TD: 11/04/2015 21:05 * Provider, MD Tyler - 11/03/2015 12:00 AM CDT CONSULTATION REPORT Patient: CAMILO CURRY Service Date: 11/03/2015 Account: [id number] Room No: 522-02 : 1970 Patient Type: IP Attend.: Ankush Parada M.D. Admit Date: 11/02/2015 Consult.: Familia Whitaker M.D. Disch. Date: 11/05/2015 GASTROENTEROLOGY CONSULTATION CONSULTING PHYSICIAN Familia Whitaker MD REFERRING PHYSICIAN Ankush Parada MD REASON FOR CONSULTATION Gastrointestinal bleeding. Mr. Curry is a 45-year-old white gentleman who was transferred to [facility] from another hospital because of concern for possible variceal bleeding. He is known to have a history of nonalcoholic fatty liver disease with cirrhosis and has seen the wet process miller head assistant at [facility]. He actually had EGD with variceal band ligation in August or September of 2015. He reported seeing old blood on his pillow at home and there was concern that he may be bleeding from his upper GI tract. He called the public information specialist who referred him to be admitted, but there were no intensive care unit beds at [facility] and the patient was transferred to [facility]. He has been in the intensive care unit since yesterday. He has not had any significant upper gastrointestinal bleeding. He did pass dark stools at home. He reported 2 episodes of light red-colored spit whenever he retched and cleared his throat. ALLERGIES IODINATED CONTRAST IV, PENICILLIN, SULFONAMIDES, AZITHROMYCIN, AND NEXIUM. HOME MEDICATIONS 1. Zofran. 2. Alprazolam. 3. Hydrocodone. 4. Lactulose. PAST MEDICAL HISTORY Positive for bipolar affective disorder and cirrhosis, thought to be due to nonalcoholic fatty liver disease. He also has a previous history of PTSD. FAMILY HISTORY Denies family history of chronic liver disease. SOCIAL HISTORY He denies tobacco abuse. He used to drink socially. REVIEW OF SYSTEMS Denies loss of consciousness or seizures. Denies headache or diplopia. Denies cough or sputum production. Denies visual loss or hearing loss. Denies dysuria or hematuria. Denies polyuria or polydipsia. Denies skin rash. Denies being suicidal or homicidal. PHYSICAL EXAM He is a pleasant gentleman. He is oriented to place, time, and person. Not in obvious distress. His weight is 107 kg, height is 5 feet 8 inches, BMI 35.9. Temperature 97.5, heart rate 60, blood pressure 127/74. Head: Atraumatic. Eyes: Reveal no jaundice. Oral Cavity: Reveals no tonsillar enlargement. Neck: Supple. No cervical adenopathy. Lungs: Clear. Cardiac Exam: Reveals normal S1 and S2. There is no S3 or gallop. Abdomen: Obese. There is no palpable organomegaly. Rectal Exam: Deferred. Neurological Examination: Reveals no focal deficits. Skin: Reveals no rash. LABORATORY FINDINGS Prothrombin time is 12.8 and INR is 1.18. TSH is 1.59. Basic metabolic profile is normal. Hemoglobin is 11.6, hematocrit 38.2. WBCs 3.58. Liver function tests are normal except for AST of 49. His albumin is 3.6. IMPRESSION Upper gastrointestinal bleeding. This sounds mild at this time. I reviewed the patient's previous EGDs on Clinical Desktop and indeed he had grade 3 esophageal varices that were banded. He is also scheduled for followup banding early next week. The fact that the patient is in the hospital with questionable upper gastrointestinal bleeding necessitates his being treated for possible recurrent variceal bleeding. He will therefore be started on octreotide drip. Continue Protonix. I will schedule him for EGD with banding on Thursday. However, if he should bleed before then he will be done emergently. Meanwhile, we will continue to monitor hemoglobin and hematocrit, and monitor his liver function tests. These tests were discussed with Dr. Parada, the hospitalist. Thank you for the opportunity to assist in the care of this patient. Electronically Authenticated by: Familia Whitaker MD On 11/06/2015 10:39 AM CDT Familia Whitaker M.D. OCO/ams TD: 11/04/2015 19:47 CC: Ankush Parada M.D. documented in this encounter Plan of Treatment Not on file documented as of this encounter Procedures Procedure Name Priority Date/Time Associated Diagnosis Comments BLOOD GLUCOSE, POC Routine 11/05/2015 12 :48 PM CDT BLOOD GLUCOSE, POC Routine 11/05/2015 8: 04 AM CDT PLASMA PROTHROMBIN TIME (PT) Routine 11/05/2015 5:49 AM CDT PLASMA PARTIAL THROMBOPLASTIN TIME (PTT) Routine 11/05/2015 5:49 AM CDT PLASMA COMPREHENSIVE METABOLIC PANEL Routine 11/05/2015 5:49 AM CDT BLOOD CELL COUNT (CBC), MORPHOLOGIC EXAM Routine 11/05/2015 5:49 AM CDT BLOOD GLUCOSE, POC Routine 11/05/2015 3: 17 AM CDT UPPER GASTROINTESTINAL ENDOSCOPY REPORT 11/05/2015 DISCHARGE LABORATORY CUMULATIVE REPORT 11/05/2015 BLOOD GLUCOSE, POC Routine 11/04/2015 10 :23 PM CDT BLOOD GLUCOSE, POC Routine 11/04/2015 5: 20 PM CDT BLOOD GLUCOSE, POC Routine 11/04/2015 12 :21 PM CDT PLASMA COMPREHENSIVE METABOLIC PANEL Routine 11/04/2015 10:28 AM CDT BLOOD CELL COUNT (CBC), MORPHOLOGIC EXAM Routine 11/04/2015 10:28 AM CDT BLOOD GLUCOSE, POC Routine 11/04/2015 7: 26 AM CDT BLOOD GLUCOSE, POC Routine 11/04/2015 2: 26 AM CDT BLOOD GLUCOSE, POC Routine 11/03/2015 8: 28 PM CDT BLOOD GLUCOSE, POC Routine 11/03/2015 5: 41 PM CDT BLOOD GLUCOSE, POC Routine 11/03/2015 12 :18 PM CDT BLOOD GLUCOSE, POC Routine 11/03/2015 7: 57 AM CDT XR CHEST 1 VIEW Routine 11/03/2015 6:17 AM CDT BLOOD GLUCOSE, POC Routine 11/03/2015 4: 51 AM CDT PLASMA TROPONIN I Routine 11/03/2015 3:0 0 AM CDT PLASMA THYROID-STIMULATING HORMONE (TSH) Routine 11/03/2015 3:00 AM CDT PLASMA PROTHROMBIN TIME (PT) Routine 11/03/2015 3:00 AM CDT PLASMA PHOSPHORUS Routine 11/03/2015 3:0 0 AM CDT PLASMA PARTIAL THROMBOPLASTIN TIME (PTT) Routine 11/03/2015 3:00 AM CDT PLASMA MAGNESIUM Routine 11/03/2015 3:00 AM CDT PLASMA LIPASE Routine 11/03/2015 3:00 AM CDT PLASMA HEPATIC FUNCTION PANEL Routine 11/03/2015 3:00 AM CDT PLASMA CORTISOL Routine 11/03/2015 3:00 AM CDT PLASMA COMPREHENSIVE METABOLIC PANEL Routine 11/03/2015 3:00 AM CDT PLASMA BASIC METABOLIC PANEL Routine 11/03/2015 3:00 AM CDT PLASMA AMYLASE Routine 11/03/2015 3:00 AM CDT BLOOD LACTIC ACID Routine 11/03/2015 3:0 0 AM CDT BLOOD CELL COUNT (CBC), MORPHOLOGIC EXAM Routine 11/03/2015 3:00 AM CDT BLOOD CALCIUM, IONIZED Routine 6 3:00 AM CDT BLOOD GLUCOSE, POC Routine 11/03/2015 2: 23 AM CDT BLOOD MICROBIOLOGY Routine 11/03/2015 12 :00 AM CDT BLOOD HEMOGLOBIN A1C Routine 11/02/2015 10:00 PM CDT documented in this encounter Results * Blood glucose, POC (11/05/2015 12:48 PM CDT) Glucose, POC, bld 114 70 - 199 mg/dl HISTORICAL RESULTS Blood specimen (specimen) 11/05/2015 12:48 PM CDT Ankush Parada MD LAB BLOOD ORDERABLES Final Re sult Performing Organization Address City/[facility] Co de Phone Number HISTORICAL RESULTS * Blood glucose, POC (11/05/2015 8:04 AM CDT) Glucose, POC, bld 113 70 - 199 mg/dl HISTORICAL RESULTS Blood specimen (specimen) 11/05/2015 8:04 AM CDT us Ankush Parada MD LAB BLOOD ORDERABLES Final Re sult HISTORICAL RESULTS * (ABNORMAL) Blood cell count (CBC), morphologic exam (11/05/2015 5:49 AM CDT) WBC 3.1(L) 3.8 - 9.8 K/cumm HISTORICAL RESULTS RBC 4.51 4.50 - 6.00 M/cumm HISTORICAL RESULTS Hgb 11.5(L) 14.0 - 18.0 g/dl HISTORICAL RESULTS Hct 36.5(L) 40.0 - 54.0 % HISTORICAL RESULTS MCV 80.9(L) 82.0 - 96.0 fl HISTORICAL RESULTS MCH 25.5(L) 27.0 - 32.0 pg HISTORICAL RESULTS MCHC 31.5 29.0 - 35.0 g/dl HISTORICAL RESULTS Platelets 58(L) 150 - 450 K/cumm HISTORICAL RESULTS RDW 45.0(H) 35.1 - 43.9 fl HISTORICAL RESULTS Rdw 15.4(H) 11.5 - 14.5 % HISTORICAL RESULTS MPV 11.9 8.6 - 12.6 fl HISTORICAL RESULTS Neutrophils 62.5 42.0 - 85.0 % HISTORICAL RESULTS Neutrophils, abs 1.9(L) 2.1 - 8.5 K/cumm HISTORICAL RESULTS Lymphocytes 20.7 16.0 - 52.0 % HISTORICAL RESULTS Lymphocytes, abs 0.6(L) 0.8 - 5.2 K/cumm HISTORICAL RESULTS Monos 13.6(H) 1.0 - 13.0 % HISTORICAL RESULTS Monocytes, absolute 0.4 0.0 - 1.3 K/cumm HISTORICAL RESULTS Eosinophils 2.9 0.0 - 7.0 % HISTORICAL RESULTS Eosinophils, abs 0.1 0.0 - 0.7 K/cumm HISTORICAL RESULTS Basophils 0.3 0.0 - 4.0 % HISTORICAL RESULTS Basophils, abs 0.0 0.0 - 0.4 K/cumm HISTORICAL RESULTS Young granulocytes, % 0.0 0.0 - 1.0 % HISTORICAL RESULTS Young granulocyte 0.00 0.00 - 0.10 K/cumm HISTORICAL RESULTS NRBC 0.0 0.0 - 0.2 #/100 WBC HISTORICAL RESULTS NRBC, abs 0.00 0.00 - 0.01 K/cumm HISTORICAL RESULTS Blood specimen (specimen) 11/05/2015 5:49 AM CDT Ayana Jose MD LAB BLOOD ORDERABLES Final Resu lt HISTORICAL RESULTS * (ABNORMAL) Plasma prothrombin time (PT) (11/05/2015 5:49 AM CDT) Prothrombin time (PT) 13.9(H) 9.5 - 13.0 seconds HISTORICAL RESULTS INR 1.28(H) 0.90 - 1.20 HISTORIC AL RESULTS Plasma 11/05/2015 5:49 AM CDT Ankush Parada MD LAB BLOOD ORDERABLES Final Re sult Performing Organization Address [facility] Co de Phone Number HISTORICAL RESULTS * Plasma partial thromboplastin time (PTT) (11/05/2015 5:49 AM CDT) Pathologist [facility] APTT 31.2 25.0 - 37.0 seconds HISTORICAL RESULTS Plasma 11/05/2015 5:49 AM CDT Ankush Parada MD LAB BLOOD ORDERABLES Final Re sult Performing Organization Address [facility] Co de Phone Number HISTORICAL RESULTS * (ABNORMAL) Plasma comprehensive metabolic panel (11/05/2015 5:49 AM CDT) BUN 11 8 - 24 mg/dl HISTORICAL RESULTS Glucose 120 70 - 199 mg/dl HISTORICAL RESULTS Sodium 141 135 - 145 mmol/L HISTORICAL RESULTS K, pl 3.8 3.5 - 5.1 mmol/L HISTORICAL RESULTS Chloride 101 100 - 114 mmol/L HISTORICAL RESULTS CO2 32 22 - 32 mmol/L HISTORICAL RESULTS Creatinine 1.10 0.70 - 1.40 mg/dl HISTORICAL RESULTS AST 68(H) 7 - 40 Units/L HISTORICAL RESULTS ALT 58(H) 5 - 50 Units/L HISTORICAL RESULTS Alk phos 74 30 - 110 Units/L HISTORICAL RESULTS Calcium 8.9 8.4 - 10.5 mg/dl HISTORICAL RESULTS Bilirubin 1.20 0.10 - 1.30 mg/dl HISTORICAL RESULTS Protein, pl 6.7 6.0 - 8.3 g/dl HISTORICAL RESULTS Alb 3.4 3.2 - 4.8 g/dl HISTORICAL RESULTS Globulin 3.3 2.0 - 4.3 g/dl HISTORICAL RESULTS A. gap 12 8 - 16 mmol/L HISTORICAL RESULTS eGFR 72 90 - 200 ml/min/1.7 3 m2 HISTORICAL RESULTS Comment: If this individual is -Citizen Of [place], multiply result by 1.21 Repeated results of less than 60 is indicative of chronic kidney disease. MDRD formula has not been validated on individuals greater than 70 years old. Plasma 11/05/2015 5:49 AM CDT Result [facility] Ayana Jose MD LAB BLOOD ORDERABLES Final Resu lt Performing Organization Address City/[facility] Co de Phone Number HISTORICAL RESULTS * Blood glucose, POC (11/05/2015 3:17 AM CDT) Glucose, POC, bld 162 70 - 199 mg/dl HISTORICAL RESULTS Blood specimen (specimen) 11/05/2015 3:17 AM CDT Result [facility] Ankush Parada MD LAB BLOOD ORDERABLES Final Re sult Performing Organization Address [facility] Co de Phone Number HISTORICAL RESULTS * DISCHARGE LABORATORY CUMULATIVE REPORT (11/05/2015) Narrative 11/05/2015 Ordered by an unspecified provider. Result [facility] Historical Provider LAB BLOOD ORDERABLES Anastasiya l Result * UPPER GASTROINTESTINAL ENDOSCOPY REPORT (11/05/2015) Anatomical Region Laterality Modality Other Narrative 11/05/2015 Ordered by an unspecified provider. Result [facility] Historical Provider GI PROCEDURE ORDERABLES F inal Result * Blood glucose, POC (11/04/2015 10:23 PM CDT) Glucose, POC, bld 97 70 - 199 mg/dl HISTORICAL RESULTS Blood specimen (specimen) 11/04/2015 10:23 PM CDT Ankush Parada MD LAB BLOOD ORDERABLES Final Re sult Performing Organization Address [facility] de Phone Number HISTORICAL RESULTS * Blood glucose, POC (11/04/2015 5:20 PM CDT) Glucose, POC, bld 122 70 - 199 mg/dl HISTORICAL RESULTS Blood specimen (specimen) 11/04/2015 5:20 PM CDT Ankush Parada MD LAB BLOOD ORDERABLES Final Re sult Performing Organization Address [facility] de Phone Number HISTORICAL RESULTS * Blood glucose, POC (11/04/2015 12:21 PM CDT) Glucose, POC, bld 162 70 - 199 mg/dl HISTORICAL RESULTS Blood specimen (specimen) 11/04/2015 12:21 PM CDT Ankush Parada MD LAB BLOOD ORDERABLES Final Re sult Performing Organization Address [facility] de Phone Number HISTORICAL RESULTS * (ABNORMAL) Blood cell count (CBC), morphologic exam (11/04/2015 10:28 AM CDT) Pathologist [facility] WBC 2.1(L) 3.8 - 9.8 K/cumm HISTORICAL RESULTS RBC 4.40(L) 4.50 - 6.00 M/cumm HISTORICAL RESULTS Hgb 11.1(L) 14.0 - 18.0 g/dl HISTORICAL RESULTS Hct 35.7(L) 40.0 - 54.0 % HISTORICAL RESULTS MCV 81.1(L) 82.0 - 96.0 fl HISTORICAL RESULTS MCH 25.2(L) 27.0 - 32.0 pg HISTORICAL RESULTS MCHC 31.1 29.0 - 35.0 g/dl HISTORICAL RESULTS Platelets 50(L) 150 - 450 K/cumm HISTORICAL RESULTS RDW 44.9(H) 35.1 - 43.9 fl HISTORICAL RESULTS Rdw 15.3(H) 11.5 - 14.5 % HISTORICAL RESULTS MPV 11.3 8.6 - 12.6 fl HISTORICAL RESULTS Neutrophils 63.6 42.0 - 85.0 % HISTORICAL RESULTS Neutrophils, abs 1.4(L) 2.1 - 8.5 K/cumm HISTORICAL RESULTS Lymphocytes 22.4 16.0 - 52.0 % HISTORICAL RESULTS Lymphocytes, abs 0.5(L) 0.8 - 5.2 K/cumm HISTORICAL RESULTS Monos 10.7 1.0 - 13.0 % HISTORICAL RESULTS Monocytes, absolute 0.2 0.0 - 1.3 K/cumm HISTORICAL RESULTS Eosinophils 2.8 0.0 - 7.0 % HISTORICAL RESULTS Eosinophils, abs 0.1 0.0 - 0.7 K/cumm HISTORICAL RESULTS Basophils 0.5 0.0 - 4.0 % HISTORICAL RESULTS Basophils, abs 0.0 0.0 - 0.4 K/cumm HISTORICAL RESULTS Young granulocytes, % 0.0 0.0 - 1.0 % HISTORICAL RESULTS Young granulocyte 0.00 0.00 - 0.10 K/cumm HISTORICAL RESULTS NRBC 0.0 0.0 - 0.2 #/100 WBC HISTORICAL RESULTS NRBC, abs 0.00 0.00 - 0.01 K/cumm HISTORICAL RESULTS Blood specimen (specimen) 11/04/2015 10:28 AM CDT us Ayana Jose MD LAB BLOOD ORDERABLES Final Resu lt HISTORICAL RESULTS * (ABNORMAL) Plasma comprehensive metabolic panel (11/04/2015 10:28 AM CDT) BUN 12 8 - 24 mg/dl HISTORICAL RESULTS Glucose 223(H) 70 - 199 mg/dl HISTORICAL RESULTS Sodium 139 135 - 145 mmol/L HISTORICAL RESULTS K, pl 4.2 3.5 - 5.1 mmol/L HISTORICAL RESULTS Chloride 104 100 - 114 mmol/L HISTORICAL RESULTS CO2 29 22 - 32 mmol/L HISTORICAL RESULTS Creatinine 1.03 0.70 - 1.40 mg/dl HISTORICAL RESULTS AST 86(H) 7 - 40 Units/L HISTORICAL RESULTS ALT 62(H) 5 - 50 Units/L HISTORICAL RESULTS Alk phos 74 30 - 110 Units/L HISTORICAL RESULTS Calcium 8.8 8.4 - 10.5 mg/dl HISTORICAL RESULTS Bilirubin 1.30 0.10 - 1.30 mg/dl HISTORICAL RESULTS Protein, pl 6.6 6.0 - 8.3 g/dl HISTORICAL RESULTS Alb 3.2 3.2 - 4.8 g/dl HISTORICAL RESULTS Globulin 3.4 2.0 - 4.3 g/dl HISTORICAL RESULTS A. gap 10 8 - 16 mmol/L HISTORICAL RESULTS eGFR 78 90 - 200 ml/min/1.7 3 m2 HISTORICAL RESULTS Comment: If this individual is -Citizen Of [place], multiply result by 1.21 Repeated results of less than 60 is indicative of chronic kidney disease. MDRD formula has not been validated on individuals greater than 70 years old. Plasma 11/04/2015 10:2 8 AM CDT Ayana Jose MD LAB BLOOD ORDERABLES Final Resu lt Performing Organization Address [facility] Co de Phone Number HISTORICAL RESULTS * Blood glucose, POC (11/04/2015 7:26 AM CDT) Glucose, POC, bld 157 70 - 199 mg/dl HISTORICAL RESULTS Blood specimen (specimen) 11/04/2015 7:26 AM CDT Ankush Parada MD LAB BLOOD ORDERABLES Final Re sult Performing Organization Address [facility] de Phone Number HISTORICAL RESULTS * Blood glucose, POC (11/04/2015 2:26 AM CDT) Glucose, POC, bld 155 70 - 199 mg/dl HISTORICAL RESULTS Blood specimen (specimen) 11/04/2015 2:26 AM CDT Ankush Parada MD LAB BLOOD ORDERABLES Final Re sult Performing Organization Address [facility] Co de Phone Number HISTORICAL RESULTS * Blood glucose, POC (11/03/2015 8:28 PM CDT) Glucose, POC, bld 123 70 - 199 mg/dl HISTORICAL RESULTS Blood specimen (specimen) 11/03/2015 8:28 PM CDT Ankush Parada MD LAB BLOOD ORDERABLES Final Re sult Performing Organization Address [facility] de Phone Number HISTORICAL RESULTS * Blood glucose, POC (11/03/2015 5:41 PM CDT) Glucose, POC, bld 118 70 - 199 mg/dl HISTORICAL RESULTS Blood specimen (specimen) 11/03/2015 5:41 PM CDT Ankush Parada MD LAB BLOOD ORDERABLES Final Re sult Performing Organization Address [facility] de Phone Number HISTORICAL RESULTS * Blood glucose, POC (11/03/2015 12:18 PM CDT) Glucose, POC, bld 122 70 - 199 mg/dl HISTORICAL RESULTS Blood specimen (specimen) 11/03/2015 12:18 PM CDT Ankush Parada MD LAB BLOOD ORDERABLES Final Re sult Performing Organization Address [facility] de Phone Number HISTORICAL RESULTS * Blood glucose, POC (11/03/2015 7:57 AM CDT) Glucose, POC, bld 140 70 - 199 mg/dl HISTORICAL RESULTS Blood specimen (specimen) 11/03/2015 7:57 AM CDT Ankush Parada MD LAB BLOOD ORDERABLES Final Re sult Performing Organization Address [facility] de Phone Number HISTORICAL RESULTS * XR Chest 1 View (11/03/2015 6:17 AM CDT) Anatomical Region Laterality Modality Body, Chest N/A Radiographic Aruna ging 11/03/2015 6:17 AM CDT Narrative 11/04/2015 12:08 PM CDT DATE OF EXAM: ??Bjorn ??2 2015 ??6:17AM Acc#: ??[id number] ??EDX [id number] - XR Chest Portable ?? DIAGNOSIS: ??UPPER GI BLEED/ESOPHAGEAL VARICES CLINICAL HISTORY: ?? chf gi bleed RESULT: EXAM: ??PORTABLE CHEST DATE: ??11/02/2015 CLINICAL HISTORY: ??Chest pain and respiratory distress FINDINGS: ??A single portable AP view of the chest obtained at 0613 hours was submitted for review without prior for comparison. ?? The lungs are clear. ??The pulmonary vasculature is normal. ??There is no evidence of pneumothorax or pleural effusion on the single-view exam. ?? The heart size is normal for projection and technique. ??The aortic contour is normal. IMPRESSION: ? NO ACUTE CARDIOPULMONARY PROCESS. ? SUPPLY CHAIN INTERN: ??TR6 TRANSCRIBE DATE/TIME: ??Nov ??3 2016 ??8:18A RADIOLOGIST: ??FAITH LYNNE M.D. ??READ ON: ??Nov ??2 2015 ??1:08P ORDERING DR: AYANA JOSE M.D. THIS DOCUMENT HAS BEEN ELECTRONICALLY SIGNED BY: ??FAITH LYNNE M.D. ??ON: ??Nov ??3 2015 12:08P Attending: ??BETSY, ??ANKUSH Requesting: ??ANDRÉS, ??AYANA Requesting Fax: ??-- Attending Fax: ??[phone] Attending ID: ??[id number] Requesting ID: ??[id number] Report To 1 ID: ??[id number] Report To 1 Name: ??BETSY, ??ANKUSH Report To 1 FAX: ??[phone] Report To 2 ID: ?? Report To 2 Name: ??, ?? Report To 2 FAX: ??-- NextGen Order #: ?? Procedure Note Provider, MD Tyler - 08/24/2016 DATE OF EXAM: Nov 03 2015 6:17AM Acc#: [id number] EDX [id number] - XR Chest Portable DIAGNOSIS: UPPER GI BLEED/ESOPHAGEAL VARICES CLINICAL HISTORY: chf gi bleed RESULT: EXAM: PORTABLE CHEST DATE: 11/02/2015 CLINICAL HISTORY: Chest pain and respiratory distress FINDINGS: A single portable AP view of the chest obtained at 0613 hours was submitted for review without prior for comparison. The lungs are clear. The pulmonary vasculature is normal. There is no evidence of pneumothorax or pleural effusion on the single-view exam. The heart size is normal for projection and technique. The aortic contour is normal. IMPRESSION: NO ACUTE CARDIOPULMONARY PROCESS. SUPPLY CHAIN INTERN: TR6 TRANSCRIBE DATE/TIME: Nov 04 2015 8:18A RADIOLOGIST: FAITH LYNNE M.D. READ ON: Nov 03 2015 1:08P ORDERING DR: AAYNA JOSE M.D. THIS DOCUMENT HAS BEEN ELECTRONICALLY SIGNED BY: FAITH LYNNE M.D. ON: Nov 04 2015 12:08P Attending: ANKUSH PARADA Requesting: AYANA JOSE Requesting Fax: -- Attending Attending ID: [id number] Requesting ID: [id number] Report To 1 ID: [id number] Report To 1 Name: ANKUSH PARADA Report To 1 FAX: [phone] Report To 2 ID: Report To 2 Name: , Report To 2 FAX: -- NextGen Order #: Historical Provider IMG XR PROCEDURES Final R esult * Blood glucose, POC (11/03/2015 4:51 AM CDT) Pathologist [facility] Glucose, POC, bld 128 70 - 199 mg/dl HISTORICAL RESULTS Blood specimen (specimen) 11/03/2015 4:51 AM CDT Ankush Parada MD LAB BLOOD ORDERABLES Final Re sult HISTORICAL RESULTS * (ABNORMAL) Blood cell count (CBC), morphologic exam (11/03/2015 3:00 AM CDT) WBC 3.6(L) 3.8 - 9.8 K/cumm HISTORICAL RESULTS RBC 4.65 4.50 - 6.00 M/cumm HISTORICAL RESULTS Hgb 11.6(L) 14.0 - 18.0 g/dl HISTORICAL RESULTS Hct 38.2(L) 40.0 - 54.0 % HISTORICAL RESULTS MCV 82.2 82.0 - 96.0 fl HISTORICAL RESULTS MCH 24.9(L) 27.0 - 32.0 pg HISTORICAL RESULTS MCHC 30.4 29.0 - 35.0 g/dl HISTORICAL RESULTS Platelets 65(L) 150 - 450 K/cumm HISTORICAL RESULTS RDW 46.3(H) 35.1 - 43.9 fl HISTORICAL RESULTS Rdw 15.5(H) 11.5 - 14.5 % HISTORICAL RESULTS MPV 12.1 8.6 - 12.6 fl HISTORICAL RESULTS Neutrophils 75.4 42.0 - 85.0 % HISTORICAL RESULTS Neutrophils, abs 2.7 2.1 - 8.5 K/cumm HISTORICAL RESULTS Lymphocytes 13.4(L) 16.0 - 52.0 % HISTORICAL RESULTS Lymphocytes, abs 0.5(L) 0.8 - 5.2 K/cumm HISTORICAL RESULTS Monos 8.1 1.0 - 13.0 % HISTORICAL RESULTS Monocytes, absolute 0.3 0.0 - 1.3 K/cumm HISTORICAL RESULTS Eosinophils 2.5 0.0 - 7.0 % HISTORICAL RESULTS Eosinophils, abs 0.1 0.0 - 0.7 K/cumm HISTORICAL RESULTS Basophils 0.6 0.0 - 4.0 % HISTORICAL RESULTS Basophils, abs 0.0 0.0 - 0.4 K/cumm HISTORICAL RESULTS Young granulocytes, % 0.0 0.0 - 1.0 % HISTORICAL RESULTS Young granulocyte 0.00 0.00 - 0.10 K/cumm HISTORICAL RESULTS NRBC 0.0 0.0 - 0.2 #/100 WBC HISTORICAL RESULTS NRBC, abs 0.00 0.00 - 0.01 K/cumm HISTORICAL RESULTS Blood specimen (specimen) 11/03/2015 3:00 AM CDT Ayana Jose MD LAB BLOOD ORDERABLES Final Resu lt HISTORICAL RESULTS * Plasma prothrombin time (PT) (11/03/2015 3:00 AM CDT) Prothrombin time (PT) 12.8 9.5 - 13.0 seconds HISTORICAL RESULTS INR 1.18 0.90 - 1.20 HISTORIC AL RESULTS Plasma 11/03/2015 3:00 AM CDT Ayana Jose MD LAB BLOOD ORDERABLES Final Resu lt Performing Organization Address [facility] de Phone Number HISTORICAL RESULTS * Plasma partial thromboplastin time (PTT) (11/03/2015 3:00 AM CDT) APTT 29.8 25.0 - 37.0 seconds HISTORICAL RESULTS Plasma 11/03/2015 3:00 AM CDT Result [facility] Ayana Jose MD LAB BLOOD ORDERABLES Final Resu lt Performing Organization Address [facility] Phone Number HISTORICAL RESULTS * Plasma troponin I (11/03/2015 3:00 AM CDT) Pathologist [facility] Troponin I <0.03 0.00 - 0.14 ng/ml HISTORICAL RESULTS Comment: Troponin Reference Ranges: Normal: ?0.00 - 0.14 ng/mL Indeterminate: ?0.15 - 0.50 ng/mL MT / Cardiac Muscle Damage: ?>0.50 ng/mL Plasma 11/03/2015 3:00 AM CDT Result [facility] Ayana Jose MD LAB BLOOD ORDERABLES Final Resu lt Performing Organization Address [facility] de Phone Number HISTORICAL RESULTS * (ABNORMAL) Blood calcium, ionized (11/03/2015 3:00 AM CDT) Ca, ionized, bld, calc, bld 4.37(L) 4.60 - 5.20 mg/dl HISTORICAL RESULTS Blood specimen (specimen) 11/03/2015 3:00 AM CDT Result [facility] Ayana Jose MD LAB BLOOD ORDERABLES Final Resu lt Performing Organization Address [facility] de Phone Number HISTORICAL RESULTS * Blood lactic acid (11/03/2015 3:00 AM CDT) Lactic acid 1.9 0.5 - 2.2 mmol/L HISTORICAL RESULTS Blood specimen (specimen) 11/03/2015 3:00 AM CDT Ayana Jose MD LAB BLOOD ORDERABLES Final Resu lt HISTORICAL RESULTS * Plasma basic metabolic panel (11/03/2015 3:00 AM CDT) Pathologist [facility] BUN 8 8 - 24 mg/dl HISTORICAL RESULTS Glucose 138 70 - 199 mg/dl HISTORICAL RESULTS Sodium 137 135 - 145 mmol/L HISTORICAL RESULTS K, pl 3.8 3.5 - 5.1 mmol/L HISTORICAL RESULTS Chloride 105 100 - 114 mmol/L HISTORICAL RESULTS CO2 27 22 - 32 mmol/L HISTORICAL RESULTS Creatinine 0.82 0.70 - 1.40 mg/dl HISTORICAL RESULTS Calcium 8.6 8.4 - 10.5 mg/dl HISTORICAL RESULTS A. gap 9 8 - 16 mmol/L HISTORICAL RESULTS eGFR >90 90 - 200 ml/min/1.7 3 m2 HISTORICAL RESULTS Comment: If this individual is -Citizen Of [place], multiply result by 1.21 Repeated results of less than 60 is indicative of chronic kidney disease. MDRD formula has not been validated on individuals greater than 70 years old. Plasma 11/03/2015 3:00 AM CDT Ayana Jose MD LAB BLOOD ORDERABLES Final Resu lt HISTORICAL RESULTS * Plasma phosphorus (11/03/2015 3:00 AM CDT) Pathologist [facility] Phosphorus, pl 4.0 2.7 - 4.7 mg/dl HISTORICAL RESULTS Plasma 11/03/2015 3:00 AM CDT Ayana Jose MD LAB BLOOD ORDERABLES Final Resu lt HISTORICAL RESULTS * Plasma magnesium (11/03/2015 3:00 AM CDT) Pathologist [facility] Magnesium 1.8 1.8 - 2.6 mg/dl HISTORICAL RESULTS Plasma 11/03/2015 3:00 AM CDT Ayana Jose MD LAB BLOOD ORDERABLES Final Resu lt Performing Organization Address [facility] de Phone Number HISTORICAL RESULTS * Plasma thyroid-stimulating hormone (TSH) (11/03/2015 3:00 AM CDT) [facility] TSH 1.59 0.34 - 5.60 mcIUnits/ml HISTORICAL RESULTS Plasma 11/03/2015 3:00 AM CDT Ayana Jose MD LAB BLOOD ORDERABLES Final Resu Performing Organization Address [facility] de Phone Number HISTORICAL RESULTS * Plasma cortisol (11/03/2015 3:00 AM CDT) [facility] Cortisol 12.8 7.0 - 25.0 mcg/dl HISTORICAL RESULTS Comment: Cortisol Reference Range (>5 yrs of age): ?? a.m. collection: ?? 7 - 25 mcg/dl ?? p.m. collection: ?? 2 - 14 mcg/dl ?? Cortisol is released in a cyclic fashion, typically resulting in a ?? diurnal peak (6:00 - 8:00 a.m.) and vargas (11:00 p.m.). Plasma 11/03/2015 3:00 AM CDT Ayana Jose MD LAB BLOOD ORDERABLES Final Resu lt Performing Organization Address [facility] de Phone Number HISTORICAL RESULTS * (ABNORMAL) Plasma comprehensive metabolic panel (11/03/2015 3:00 AM CDT) [facility] BUN 7(L) 8 - 24 mg/dl HISTORICAL RESULTS Glucose 142 70 - 199 mg/dl HISTORICAL RESULTS Sodium 137 135 - 145 mmol/L HISTORICAL RESULTS K, pl 3.7 3.5 - 5.1 mmol/L HISTORICAL RESULTS Chloride 105 100 - 114 mmol/L HISTORICAL RESULTS CO2 27 22 - 32 mmol/L HISTORICAL RESULTS Creatinine 0.84 0.70 - 1.40 mg/dl HISTORICAL RESULTS AST 49(H) 7 - 40 Units/L HISTORICAL RESULTS ALT 43 5 - 50 Units/L HISTORICAL RESULTS Alk phos 75 30 - 110 Units/L HISTORICAL RESULTS Calcium 8.6 8.4 - 10.5 mg/dl HISTORICAL RESULTS Bilirubin 1.20 0.10 - 1.30 mg/dl HISTORICAL RESULTS Protein, pl 6.9 6.0 - 8.3 g/dl HISTORICAL RESULTS Alb 3.6 3.2 - 4.8 g/dl HISTORICAL RESULTS Globulin 3.3 2.0 - 4.3 g/dl HISTORICAL RESULTS A. gap 9 8 - 16 mmol/L HISTORICAL RESULTS Plasma 11/03/2015 3:00 AM CDT us Ayana Jose MD LAB BLOOD ORDERABLES Final Resu lt Performing Organization Address [facility] Co de Phone Number HISTORICAL RESULTS * Plasma lipase (11/03/2015 3:00 AM CDT) Lip 27 20 - 50 Units/L HISTORICAL RESULTS Plasma 11/03/2015 3:00 AM CDT us Ayana Jose MD LAB BLOOD ORDERABLES Final Resu lt Performing Organization Address [facility] Co de Phone Number HISTORICAL RESULTS * Plasma amylase (11/03/2015 3:00 AM CDT) Yoly, pl 86 28 - 100 Units/L HISTORICAL RESULTS Plasma 11/03/2015 3:00 AM CDT us Ayana Jose MD LAB BLOOD ORDERABLES Final Resu lt Performing Organization Address [facility] Co de Phone Number HISTORICAL RESULTS * (ABNORMAL) Plasma hepatic function panel (11/03/2015 3:00 AM CDT) AST 49(H) 7 - 40 Units/L HISTORICAL RESULTS ALT 43 5 - 50 Units/L HISTORICAL RESULTS Alk phos 75 30 - 110 Units/L HISTORICAL RESULTS Bilirubin 1.20 0.10 - 1.30 mg/dl HISTORICAL RESULTS Protein, pl 6.9 6.0 - 8.3 g/dl HISTORICAL RESULTS Alb 3.6 3.2 - 4.8 g/dl HISTORICAL RESULTS Globulin 3.3 2.0 - 4.3 g/dl HISTORICAL RESULTS Bilirubin, direct 0.20 0.00 - 0.40 mg/dl HISTORICAL RESULTS Bilirubin, indirect 1.00 0.00 - 1.30 mg/dl HISTORICAL RESULTS Plasma 11/03/2015 3:00 AM CDT Ayana Jose MD LAB BLOOD ORDERABLES Final Resu lt HISTORICAL RESULTS * Blood glucose, POC (11/03/2015 2:23 AM CDT) Pathologist [facility] Glucose, POC, bld 140 70 - 199 mg/dl HISTORICAL RESULTS Blood specimen (specimen) 11/03/2015 2:23 AM CDT Ankush Parada MD LAB BLOOD ORDERABLES Final Re sult HISTORICAL RESULTS * Blood Microbiology (11/03/2015 12:00 AM CDT) 11/03/2015 Narrative HISTORICAL RESULTS - 11/08/2015 12:08 PM CDT [facility] ?Patient Name: ?CAMILO CURRY ?Med. Rec#: ?? [id number] ?Pt. Acct.#: ??[id number] ?Birthdate: ?? 1970 ?Age / Sex: ?? 45Y / M ?Location: ?[facility] (202) ?Admit Date: ??11/02/2015 ?Discharge Date: ? 11/05/2015 ?Doctor: ?Ankush Parada MD ?Patient Type: ?[facility] Inpatient Culture, Blood ? Collected: 11/03/2015 03:00 Specimen: Blood, peripheral ?? Specimen Source: Venipuncture Status: Final ??Last Update: 11/03/2015 05:36 Culture Blood via peripheral draw, unless otherwise ordered. Prior to first antibiotic dose. Culture Result ?? No Growth Culture, Blood ? Collected: 11/03/2015 03:00 Specimen: Blood, peripheral ?? Specimen Source: Venipuncture Status: Final ??Last Update: 11/03/2015 05:36 Culture Blood via peripheral draw, unless otherwise ordered. Prior to first antibiotic dose. Culture Result ?? No Growth us Historical Provider LAB MICROBIOLOGY - GENERA L ORDERABLES Final Result Performing Organization Address [facility] de Phone Number HISTORICAL RESULTS * (ABNORMAL) Blood hemoglobin A1C (11/02/2015 10:00 PM CDT) [facility] Hgb A1C 6.8(H) 4.0 - 6.0 % HISTORICAL RESULTS Comment: Hemoglobin A1c ADA Interpretive Guidelines: ?<7% ?? Glycemia controlled ?>8% ?? Hyperglycemia, additional action recommended ?Hema Immunochemical Method Blood specimen (specimen) 11/02/2015 10:00 PM CDT Narrative HISTORICAL RESULTS - 11/03/2015 7:03 AM CDT Test performed at [facility], [address] [place] [address], [id number]. us Ayana Jose MD LAB BLOOD ORDERABLES Final Resu lt Performing Organization Address [facility] de Phone Number HISTORICAL RESULTS documented in this encounter Visit Diagnoses Diagnosis Cirrhosis of liver (HCC) Cirrhosis of liver without mention of alcohol Secondary esophageal varices with bleeding (CMS/HCC) (HCC) Thrombocytopenia (HCC) Unspecified thrombocytopenia Portal hypertension (CMS/HCC) (HCC) Portal hypertension Acute posthemorrhagic anemia Nonalcoholic steatohepatitis (BLAND) Other diseases of stomach and duodenum Hepatic failure, without coma (CMS/HCC) (HCC) Type 2 diabetes mellitus without complications (CMS/HCC) (HCC) Anxiety disorder Anxiety state, unspecified Post-traumatic stress disorder Posttraumatic stress disorder Bipolar disorder (HCC) Bipolar disorder, unspecified Overweight Other chronic pain Personal history of nicotine dependence Allergy status to penicillin documented in this encounter
--- OUTSIDE RECORDS SUMMARY | 2024-04-19 23:10 | XMS_ITS | Encounter Summary ---
Author Organization [employer] Facility Care Team Providers Care Building Tech Name Role Phone Unavailable Primary Care Provider Unavailabl e Encounter Details Date Type Department Care Team (Latest Contact Info) Description 08/23/2015 5:12 AM CDT - 08/27/2015 5:17 PM CDT Hospital Encounter [facility] Calculus of gallbladder without cholecystitis without obstruction; Secondary esophageal varices without bleeding (CMS/HCC); Portal hypertension (CMS/HCC); Other cirrhosis of liver (CMS/HCC); Type 2 diabetes mellitus without complications (CMS/HCC); Iron deficiency anemia; Allergy status to penicillin; Allergy status to sulfonamides; Allergy status to other drugs, medicaments and biological substances status; Allergy status to other anti-infective agents status; Radiographic dye allergy status; Other diseases of stomach and duodenum; Nonalcoholic steatohepatitis (BLAND); History of self-harm; Personal history of nicotine dependence; Obesity Social History Tobacco Use Types Packs/Day Years Used Date Smoking Tobacco: Never Assessed Sex and Gender Information Value Date Recorded Sex Assigned at Not on file 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 Gender Identity Male 10/29/2020 12:37 PM CDT Sexual Orientation Straight 10/29/2020 12 :37 PM CDT documented as of this encounter Last Filed Vital Signs Vital Sign Reading Time Taken Comments Blood Pressure 103/51 08/27/2015 7:47 AM CDT Pulse 67 08/27/2015 11:30 AM CDT Temperature - - Respiratory Rate - - Oxygen Saturation 95% 08/27/2015 11: 30 AM CDT Inhaled Oxygen Concentration - - Weight 108.6 kg (239 lb 6.4 oz) 08/23/2015 5:57 AM CDT Height 172.7 cm (5' 8 ) 08/23/2015 5:57 AM CDT Body Mass Index 36.4 08/23/2015 5:57 AM CDT documented in this encounter H&P Notes * Provider, MD Tyler - 08/23/2015 12:00 AM CDT Patient: CAMILO MARTE Reg No: [id number] U H #: [id number] Admit Dt.: 08/23/2015 : 1970 Room No: 87833-23 Attending: Kisha Quezada M.D. Dictating: Kisha Quezada M.D. ADMISSION HISTORY AND PHYSICAL Date of Service: 08/23/2015 Admission Diagnoses: 1. Acute cholecystitis. 2. Nonalcoholic steatohepatitis (BLAND) cirrhosis. 3. Esophageal varices. 4. Diabetes. Chief Complaint: Right upper quadrant abdominal pain. History Of Present Illness: This is a 44-year-old male with a recent diagnosis of cirrhosis and esophageal varices who presented to [facility] ER with complaints of right upper quadrant abdominal pain, as well as seeking a second opinion on his new diagnosis of cirrhosis. The patient reports he had not been having any issues with abdominal pain until he woke up from sleep the night before presentation with abdominal pain in his right upper quadrant. At first he thought nothing of it, as he had been lifting bags of dirt at his apartment complex to help out some neighbors and thought that it might have just been from muscle strain, but then his pain worsened throughout the day and he started vomiting after he ate food. He saw his primary care doctor who said to go to the ER, in particular because of his recent history and at the outside hospital ER, he underwent a CT scan without contrast that showed cholelithiasis without cholecystitis and they discussed admission. Because all laboratories were normal and imaging was unremarkable, he refused admission and instead preferred to follow up with his primary doctor in the morning. Apparently, he saw his primary care doctor in the clinic then today and he recommended just coming to the [facility] ER for evaluation with the hope that he might be able to see a liver specialist sooner than his original scheduled appointment. The patient was referred to the Liver Clinic here at [facility] by his primary care doctor for a new diagnosis of cirrhosis. Apparently his appointment was not set for October, but according to the patient when they received the records from his primary care doctor and they saw the results, they pushed the appointment to September 10, 2015, but because of the patient's abdominal pain, he could not wait that long to be evaluated. The patient reports that 1 month ago, he started vomiting blood. He was admitted to the hospital by his family care doctor and underwent EGD, which showed esophageal varices, and according to the patient was told that the EGD also showed cirrhosis. The records faxed over to the Liver Clinic here at [facility] for referral to the Liver Clinic are in [facility] and were evaluated and reportedly according to those records, the diagnosis of cirrhosis resulted from imaging that showed findings consistent with portal hypertension with varices and splenomegaly as well as the EGD results that showed extensive esophageal varices and extensive duodenal polyps. The polyps were biopsied and reportedly not malignant, but nothing no intervention was performed to the esophageal varices as the primary care doctor wanted a GI physician to perform the banding. The patient was not started on propranolol despite the findings of varices. Apparently the primary care doctor has been performing weekly CBCs to keep track of his blood counts in the interim. The patient reports he did have an episode of vomiting blood downstairs in the ER, however, laboratories from the outside hospital did show that his hemoglobin and hematocrit were relatively stable from over the past several hours despite the reports of hematemesis. The patient denies having fevers, but admits to cold sweats at home, but he does say he had a slightly elevated temperature on arrival to the outside hospital of around 100. On interview, his pain was slightly improved. Apparently an abdominal ultrasound was performed in the ER that showed a thickened gallbladder wall with mild amount of pericholecystic fluid consistent with acute cholecystitis, and no extrahepatic biliary ductal dilatation concerning for choledocholithiasis. General Surgery was consulted for evaluation. Because of his history of cirrhosis and possible esophageal varices, the general surgery service did not feel that operative intervention was appropriate at this time. Recommended the patient be admitted to our service. Recommended IV antibiotics and the patient be admitted to the internal medicine service for further management of his known esophageal varices. Past Medical History: 1. As above, possible new diagnosis of cirrhosis. He has not yet undergone liver biopsy. It was presumed to be BLAND cirrhosis because the patient does not have a history of IV drug or alcohol use, but it does not appear that any other laboratories were performed. This is complicated by portal hypertension with esophageal varices. 2. Type 2 diabetes. 3. History of suicide attempt. The patient has multiple scars on his forearms from where the patient was cutting himself. No other issues with suicide since. Allergies: The patient is allergic to penicillin. It causes respiratory failure. Sulfa causes hives. Erythromycin causes hives. Nexium causes hives. IV contrast causes swelling. Medications: 1. Hydrocodone 5/325 mg, 2 tablets twice a day as needed for pain. 2. Metformin 500 mg b.i.d. 3. Xanax 0.5 mg b.i.d. as needed for anxiety. 4. Zofran, which the patient has only been needing for the past month as needed for nausea. He reports he needs it almost daily, sometimes twice a day. 5. Omeprazole 20 mg b.i.d. Family History: Reviewed and noncontributory. Social History: The patient does not drink alcohol. He used to smoke 1 pack per day for 20 years, but quit 13 years ago. He does have a history of methamphetamine and crack use in the , but he reports since 1997, after he had an overdose on methamphetamine, he has never used drugs since. No history of IV drug use. Review of Systems: All other systems negative. Physical Examination: Vital Signs: Temperature 97.8, pulse 66, respirations 18, blood pressure 109/52, 96% on room air. General: The patient is alert, oriented x4, lying comfortably in bed in no acute distress. HEENT: Pupils are equal and reactive to light. Anicteric. Oropharynx is clear with dry mucous membranes. Neck: Soft and supple. No JVD. Pulmonary: Clear to auscultation bilaterally. Cardiovascular: Regular rate and rhythm. No murmurs, gallops, or thrills. Abdomen: Positive bowel sounds. Soft, nontender. No guarding or rebound. Musculoskeletal: No clubbing, cyanosis, edema. Full range of motion, 2+ radial pulses bilaterally. Skin: No rashes. Neurological: Cranial nerves II to XII intact, 5/5 strength. No focal deficits. Laboratory And X-Ray Data: INR 1.2. PT 13.9, PTT 30.2. CBC: White count 3.81, hemoglobin 10.9, hematocrit 33.0, platelets 87,000. CMP: Sodium 139, potassium 4.3, chloride 104, bicarbonate 27, BUN is 12, creatinine 0.90, glucose is 80. Protein 7.3, albumin 4.1, total bilirubin 0.8, alkaline phosphatase 87, AST 47, ALT 46, lipase 35. Urinalysis was clear without evidence of infection. Ultrasound gallbladder wall thickening up to 7 mm with a mild amount of pericholecystic fluid and cholelithiasis. He had a positive sonographic Espinoza's sign. The liver is normal in size. Echotexture is coarse. Echogenicity is normal. There is no surface nodularity. No focal solid lesions are visualized. There is no intrahepatic bile duct dilatation. The distal aspect of the common duct is not visualized secondary to overlying bowel gas. Impression: Cholelithiasis with sonographic evidence of acute cholecystitis. Assessment and Plan: This is a 44-year-old male with a new diagnosis of presumed nonalcoholic steatohepatitis (BLAND) cirrhosis, esophageal varices, here with right upper quadrant pain concerning for acute cholecystitis. 1. Right upper quadrant pain. Though the patient's story sounds like acute cholecystitis, there are some laboratory results that raise the question of whether he truly has acute cholecystitis including his lack of leukocytosis and completely normal liver enzymes, while liver enzymes can be seen to be normal in a setting of acute cholecystitis, I would have expected at least a leukocytosis. Additionally, he was completely without right upper quadrant tenderness to palpation on my examination, raising the concern that his right upper quadrant ultrasound findings could have been a false positive, possibly related to his history of cirrhosis. We will order a HIDA scan for the morning, keep patient n.p.o., provide IV fluids, analgesia, and antiemetics. 2. BLAND cirrhosis. Most likely given patient's morbid obesity, he has BLAND cirrhosis, but admittedly has not had a complete workup or a liver biopsy. We will consult Liver in the morning for further assistance. 3. Esophageal varices, likely needs an EGD this admission given reports of hematemesis and numerous esophageal varices on his most recent EGD by his primary care doctor. Continue omeprazole 4. Diabetes. Hold metformin. Continue insulin sliding scale. 5. Anxiety and depression. Continue Xanax. 6. Fluids, electrolytes, and nutrition/prophylaxis. The patient be n.p.o. No anticoagulation for deep venous thrombosis (DVT) prophylaxis. 7. He is a FULL CODE. Electronically Authenticated by: Kisha Quezada M.D. On 09/04/2015 10:35 PM CDT Kisha Quezada M.D. CLA:[facility] #[id number] Editing MT: TD: 08/23/2015 07:44 AM cc: Kisha Quezada M.D. documented in this encounter Plan of Treatment Not on file documented as of this encounter Procedures Procedure Name Priority Date/Time Associated Diagnosis Comments BLOOD GLUCOSE, POC Routine 08/27/2015 11 :37 AM CDT BLOOD GLUCOSE, POC Routine 08/27/2015 7: 55 AM CDT DISCHARGE LABORATORY CUMULATIVE REPORT 08/27/2015 PLASMA BASIC METABOLIC PANEL Routine 08/26/2015 9:38 PM CDT BLOOD CELL COUNT (CBC) Routine 6 9:38 PM CDT BLOOD CELL MORPHOLOGIC EXAM Routine 08/26/2015 9:38 PM CDT BLOOD GLUCOSE, POC Routine 08/26/2015 8: 30 PM CDT BLOOD GLUCOSE, POC Routine 08/26/2015 5: 58 PM CDT CHEST RADIOGRAPHY, FRONTAL (AP), LATERAL Routine 08/26/2015 12:46 PM CDT BLOOD GLUCOSE, POC Routine 08/26/2015 12 :15 PM CDT PLASMA COMPREHENSIVE METABOLIC PANEL Routine 08/26/2015 8:41 AM CDT BLOOD CELL COUNT (CBC) Routine 6 8:41 AM CDT BLOOD CELL MORPHOLOGIC EXAM Routine 08/26/2015 8:41 AM CDT BLOOD GLUCOSE, POC Routine 08/26/2015 7: 49 AM CDT URINE MICROSCOPY Routine 08/26/2015 4:57 AM CDT URINALYSIS Routine 08/26/2015 4:57 AM CDT BLOOD CULTURE, CDR Routine 08/26/2015 4: 53 AM CDT BLOOD CULTURE, CDR Routine 08/26/2015 4: 53 AM CDT ALL MICROBIOLOGY REPORT SECTION Routine 08/26/2015 12:00 AM CDT ALL MICROBIOLOGY REPORT SECTION Routine 08/26/2015 12:00 AM CDT BLOOD GLUCOSE, POC Routine 08/25/2015 8: 31 PM CDT BLOOD GLUCOSE, POC Routine 08/25/2015 5: 13 PM CDT CHEST RADIOGRAPHY, FRONTAL (AP), LATERAL Routine 08/25/2015 1:38 PM CDT BLOOD GLUCOSE, POC Routine 08/25/2015 12 :37 PM CDT BLOOD GLUCOSE, POC Routine 08/25/2015 8: 35 AM CDT SERUM TROPONIN I Routine 08/24/2015 10:3 7 PM CDT XR ABDOMEN 2 VW Routine 08/24/2015 9:58 PM CDT BLOOD CELL COUNT Routine 08/24/2015 8:40 PM CDT BLOOD GLUCOSE, POC Routine 08/24/2015 8: 38 PM CDT BLOOD GLUCOSE, POC Routine 08/24/2015 5: 24 PM CDT BLOOD GLUCOSE, POC Routine 08/24/2015 12 :08 PM CDT BLOOD GLUCOSE, POC Routine 08/24/2015 8: 05 AM CDT UPPER GASTROINTESTINAL ENDOSCOPY REPORT 08/24/2015 ELECTROCARDIOGRAPHY (ECG) 08/24/2015 BLOOD GLUCOSE, POC Routine 08/23/2015 8: 20 PM CDT SERUM IRON PROFILE Routine 08/23/2015 5: 23 PM CDT SERUM HEPATITIS PANEL Routine 08/23/2015 5:23 PM CDT SERUM HEPATITIS C VIRUS (HCV) RNA Routine 08/23/2015 5:23 PM CDT SERUM HEPATITIS B CORE AB Routine 2015 5:23 PM CDT SERUM HEPATITIS A AB TOTAL Routine 08/22 5:23 PM CDT SERUM FERRITIN Routine 08/23/2015 5:23 PM CDT SERUM CERULOPLASMIN Routine 08/23/2015 5 :23 PM CDT SERUM ANTISMOOTH MUSCLE AB Routine 08/22 5:23 PM CDT SERUM ANTIMITOCHONDRIAL AB (AMA) Routine 08/23/2015 5:23 PM CDT SERUM [id number] Routine 2015 5:23 PM CDT SERUM ALPHA FETOPROTEIN Routine 08/23/19 16 5:23 PM CDT BLOOD CELL COUNT Routine 08/23/2015 5:23 PM CDT VLWU DUPLEX SCAN OF AORTA; INFERIOR VENA CAVA, ILIAC, COMPLETE BILATERAL Routine 08/23/2015 4:23 PM CDT BLOOD GLUCOSE, POC Routine 08/23/2015 2: 46 PM CDT NM HEPATOBILIARY IMAGING W PHARMACEUTICAL INTERVENTION Routine 08/23/2015 1:46 PM CDT SERUM ALPHA FETOPROTEIN, NEW Routine 08/23/2015 12:23 PM CDT SERUM HEPATITIS C GENOTYPE Routine 08/22 12:23 PM CDT SERUM HEPATITIS B CORE AB, IGM Routine 08/23/2015 12:23 PM CDT SERUM ANTINUCLEAR AB (NILE) Routine 08/22 12:23 PM CDT BLOOD GLUCOSE, POC Routine 08/23/2015 4: 37 AM CDT US ABDOMEN LIMITED Routine 08/22/2015 9: 25 PM CDT PLASMA PROTHROMBIN TIME (PT) Routine 08/22/2015 8:20 PM CDT PLASMA PARTIAL THROMBOPLASTIN TIME (PTT) Routine 08/22/2015 8:20 PM CDT URINALYSIS Routine 08/22/2015 7:56 PM CDT SERUM LIPASE Routine 08/22/2015 2:14 PM CDT PLASMA HEPATIC FUNCTION PANEL Routine 08/22/2015 2:14 PM CDT PLASMA BASIC METABOLIC PANEL Routine 08/22/2015 2:14 PM CDT BLOOD CELL COUNT (CBC) Routine 6 2:14 PM CDT BLOOD CELL MORPHOLOGIC EXAM Routine 08/22/2015 2:14 PM CDT BLOOD GLUCOSE, POC Routine 08/22/2015 1: 19 PM CDT documented in this encounter Results * Blood glucose, POC (08/27/2015 11:37 AM CDT) Glucose, POC, bld 138 70 - 199 mg/dl HISTORICAL RESULTS Blood specimen (specimen) 08/27/2015 11:37 AM CDT Kisha Quezada MD LAB BLOOD ORDERABLES Anastasiya l Result HISTORICAL RESULTS * Blood glucose, POC (08/27/2015 7:55 AM CDT) [facility] Glucose, POC, bld 101 70 - 199 mg/dl HISTORICAL RESULTS Blood specimen (specimen) 08/27/2015 7:55 AM CDT Kisha Quezada MD LAB BLOOD ORDERABLES Anastasiya l Result HISTORICAL RESULTS * DISCHARGE LABORATORY CUMULATIVE REPORT (08/27/2015) Narrative 08/27/2015 Ordered by an unspecified provider. [facility] LAB BLOOD ORDERABLES Anastasiya l Result * Plasma basic metabolic panel (08/26/2015 9:38 PM CDT) [facility] Sodium 139 135 - 145 mmol/L HISTORICAL RESULTS K, pl 3.8 3.3 - 4.9 mmol/L HISTORICAL RESULTS Chloride 105 97 - 110 mmol/L HISTORICAL RESULTS CO2 27 22 - 32 mmol/L HISTORICAL RESULTS A. gap 7 2 - 15 mmol/L HISTORICAL RESULTS Glucose 125 70 - 199 mg/dl HISTORICAL RESULTS BUN 10 8 - 25 mg/dl HISTORICAL RESULTS Creatinine 1.10 0.80 - 1.30 mg/dl HISTORICAL RESULTS Calcium 8.5 8.5 - 10.3 mg/dl HISTORICAL RESULTS Plasma 08/26/2015 9:38 PM CDT Gaurav Cerna MD PhD LAB BLOOD ORDERABLES F inal Result HISTORICAL RESULTS * (ABNORMAL) Blood cell count (CBC) (08/26/2015 9:38 PM CDT) WBC 5.0 3.8 - 9.9 K/cumm HISTORICAL RESULTS RBC 3.78(L) 4.30 - 5.80 M/cumm HISTORICAL RESULTS Hgb 10.4(L) 13.0 - 17.5 g/dl HISTORICAL RESULTS Hct 32.8(L) 38.9 - 50.3 % HISTORICAL RESULTS MCV 86.8 81.3 - 96.4 fl HISTORICAL RESULTS MCH 27.5 27.1 - 33.3 pg HISTORICAL RESULTS MCHC 31.7(L) 32.3 - 35.7 g/dl HISTORICAL RESULTS Rdw 14.5 11.1 - 14.9 % HISTORICAL RESULTS RDW 45.2 35.7 - 48.1 fl HISTORICAL RESULTS Platelets 79(L) 150 - 400 K/cumm HISTORICAL RESULTS MPV 11.6 9.1 - 12.3 fl HISTORICAL RESULTS NRBC 0.0 0.0 - 0.2 % HISTORIC AL RESULTS NRBC, abs 0.00 0.00 - 0.01 K/cumm HISTORICAL RESULTS Blood specimen (specimen) 08/26/2015 9:38 PM CDT Gaurav Cerna MD PhD LAB BLOOD ORDERABLES F inal Result Performing Organization Address City/[facility] Co de Phone Number HISTORICAL RESULTS * Blood cell morphologic exam (08/26/2015 9:38 PM CDT) Neutrophils 65.8 % HISTORIC AL RESULTS Immature granulocytes 0.4 % HISTORICAL RESULTS Lymphocytes 16.3 % HISTORIC AL RESULTS Monos 14.3 % HISTORICAL RESULTS Eosinophils 2.6 % HISTORIC AL RESULTS Basophils 0.6 % HISTORICAL RESULTS Neutrophils, abs 3.3 1.7 - 6.5 K/cumm HISTORICAL RESULTS Immature granulocyte, abs 0.0 0.0 - 0.1 K/cumm HISTORICAL RESULTS Lymphocytes, abs 0.8 0.8 - 3.3 K/cumm HISTORICAL RESULTS Monocytes, absolute 0.7 0.2 - 0.8 K/cumm HISTORICAL RESULTS Eosinophils, abs 0.1 0.0 - 0.5 K/cumm HISTORICAL RESULTS Basophils, abs 0.0 0.0 - 0.1 K/cumm HISTORICAL RESULTS Blood specimen (specimen) 08/26/2015 9:38 PM CDT Gaurav Cerna MD PhD LAB BLOOD ORDERABLES F inal Result Performing Organization Address [facility] de Phone Number HISTORICAL RESULTS * Blood glucose, POC (08/26/2015 8:30 PM CDT) Glucose, POC, bld 137 70 - 199 mg/dl HISTORICAL RESULTS Blood specimen (specimen) 08/26/2015 8:30 PM CDT Kisha Quezada MD LAB BLOOD ORDERABLES Anastasiya l Result Performing Organization Address [facility] de Phone Number HISTORICAL RESULTS * Blood glucose, POC (08/26/2015 5:58 PM CDT) Glucose, POC, bld 79 70 - 199 mg/dl HISTORICAL RESULTS Blood specimen (specimen) 08/26/2015 5:58 PM CDT Kisha Quezada MD LAB BLOOD ORDERABLES Anastasiya l Result Performing Organization Address [facility] Phone Number HISTORICAL RESULTS * CHEST RADIOGRAPHY, FRONTAL (AP), LATERAL (08/26/2015 12:46 PM CDT) Anatomical Region Laterality Modality N/A Radiographic Aruna ging 08/26/2015 12:4 6 PM CDT Narrative 08/27/2015 10:40 AM CDT KORY OKEEFE M.D. FINAL REPORT ACC# ??Date Time ??Exam [id number] Aug 26, 2015 12:46:00 [id number] Chest 2 views Front&Lat EXAMINATION: ?CHEST, TWO VIEWS, FRONTAL AND LATERAL IMPRESSION: ?? Comparison August 25, 2015. Lung volumes are small. Mild residual bibasilar interstitial opacities seen which may represent residual atelectasis or aspiration. Tiny bibasilar pleural effusions again seen. No definite pulmonary edema seen. There is no pneumothorax seen. Cardiomediastinal silhoette is stable. Requested By: GAURAV CERNA MD, PHD Dictated By: ?? KORY OKEEFE M.D. ??on Aug 27 2015 10:40A This document has been electronically signed by: KORY OKEEFE M.D. on Aug 27 2015 10:40A [id number] Procedure Note Provider, MD Tyler - 08/24/2016 KORY OKEEFE M.D. FINAL REPORT ACC# Date Time Exam [id number] Aug 26, 2015 12:46:00 [id number] Chest 2 views Front&Lat EXAMINATION: CHEST, TWO VIEWS, FRONTAL AND LATERAL IMPRESSION: Comparison August 25, 2015. Lung volumes are small. Mild residual bibasilar interstitial opacities seen which may represent residual atelectasis or aspiration. Tiny bibasilar pleural effusions again seen. No definite pulmonary edema seen. There is no pneumothorax seen. Cardiomediastinal silhoette is stable. Requested By: GAURAV CERNA MD, PHD Dictated By: KORY OKEEFE M.D. on Aug 27 2015 10:40A This document has been electronically signed by: KORY OKEEFE M.D. on Aug 27 2015 10:40A [id number] us Historical Provider IMG XR PROCEDURES Final R esult * Blood glucose, POC (08/26/2015 12:15 PM CDT) Glucose, POC, bld 95 70 - 199 mg/dl HISTORICAL RESULTS Blood specimen (specimen) 08/26/2015 12:15 PM CDT us Kisha Quezada MD LAB BLOOD ORDERABLES Anastasiya enciso Result HISTORICAL RESULTS * (ABNORMAL) Plasma comprehensive metabolic panel (08/26/2015 8:41 AM CDT) Pathologist [facility] Sodium 139 135 - 145 mmol/L HISTORICAL RESULTS K, pl 4.0 3.3 - 4.9 mmol/L HISTORICAL RESULTS Chloride 103 97 - 110 mmol/L HISTORICAL RESULTS CO2 26 22 - 32 mmol/L HISTORICAL RESULTS A. gap 10 2 - 15 mmol/L HISTORICAL RESULTS Glucose 93 70 - 199 mg/dl HISTORICAL RESULTS BUN 10 8 - 25 mg/dl HISTORICAL RESULTS Creatinine 1.10 0.80 - 1.30 mg/dl HISTORICAL RESULTS Calcium 8.5 8.5 - 10.3 mg/dl HISTORICAL RESULTS Protein, pl 6.4(L) 6.5 - 8.5 g/dl HISTORICAL RESULTS Alb 3.6 3.5 - 5.0 g/dl HISTORICAL RESULTS Bilirubin 1.2 0.1 - 1.2 mg/dl HISTORICAL RESULTS Alk phos 74 40 - 130 Units/L HISTORICAL RESULTS AST 35 10 - 50 Units/L HISTORICAL RESULTS ALT 34 7 - 55 Units/L HISTORICAL RESULTS Plasma 08/26/2015 8:41 AM CDT us Gaurav Cerna MD PhD LAB BLOOD ORDERABLES F inal Result HISTORICAL RESULTS * (ABNORMAL) Blood cell count (CBC) (08/26/2015 8:41 AM CDT) [facility] WBC 5.4 3.8 - 9.9 K/cumm HISTORICAL RESULTS RBC 3.87(L) 4.30 - 5.80 M/cumm HISTORICAL RESULTS Hgb 10.7(L) 13.0 - 17.5 g/dl HISTORICAL RESULTS Hct 33.6(L) 38.9 - 50.3 % HISTORICAL RESULTS MCV 86.8 81.3 - 96.4 fl HISTORICAL RESULTS MCH 27.6 27.1 - 33.3 pg HISTORICAL RESULTS MCHC 31.8(L) 32.3 - 35.7 g/dl HISTORICAL RESULTS Rdw 14.4 11.1 - 14.9 % HISTORICAL RESULTS RDW 45.4 35.7 - 48.1 fl HISTORICAL RESULTS Platelets 78(L) 150 - 400 K/cumm HISTORICAL RESULTS MPV 11.2 9.1 - 12.3 fl HISTORICAL RESULTS NRBC 0.0 0.0 - 0.2 % HISTORIC AL RESULTS NRBC, abs 0.00 0.00 - 0.01 K/cumm HISTORICAL RESULTS Blood specimen (specimen) 08/26/2015 8:41 AM CDT Gaurav Cerna MD PhD LAB BLOOD ORDERABLES F inal Result HISTORICAL RESULTS * Blood cell morphologic exam (08/26/2015 8:41 AM CDT) Neutrophils 67.7 % HISTORIC AL RESULTS Immature granulocytes 0.4 % HISTORICAL RESULTS Lymphocytes 16.3 % HISTORIC AL RESULTS Monos 13.3 % HISTORICAL RESULTS Eosinophils 1.7 % HISTORIC AL RESULTS Basophils 0.6 % HISTORICAL RESULTS Neutrophils, abs 3.6 1.7 - 6.5 K/cumm HISTORICAL RESULTS Immature granulocyte, abs 0.0 0.0 - 0.1 K/cumm HISTORICAL RESULTS Lymphocytes, abs 0.9 0.8 - 3.3 K/cumm HISTORICAL RESULTS Monocytes, absolute 0.7 0.2 - 0.8 K/cumm HISTORICAL RESULTS Eosinophils, abs 0.1 0.0 - 0.5 K/cumm HISTORICAL RESULTS Basophils, abs 0.0 0.0 - 0.1 K/cumm HISTORICAL RESULTS Blood specimen (specimen) 08/26/2015 8:41 AM CDT Gaurav Cerna MD PhD LAB BLOOD ORDERABLES F inal Result Performing Organization Address City/[facility]/ZIP Co de Phone Number HISTORICAL RESULTS * Blood glucose, POC (08/26/2015 7:49 AM CDT) Glucose, POC, bld 90 70 - 199 mg/dl HISTORICAL RESULTS Blood specimen (specimen) 08/26/2015 7:49 AM CDT Kisha Quezada MD LAB BLOOD ORDERABLES Anastasiya l Result HISTORICAL RESULTS * Urinalysis (08/26/2015 4:57 AM CDT) Color, ur Yellow Yellow HISTORICAL RESULTS Clarity, ur Clear Clear HISTORIC AL RESULTS Specific gravity, ur 1.014 1.003 - 1.030 HISTORICAL RESULTS pH, ur 5.0 5.0 - 8.0 HISTORICAL RESULTS Protein, ur Negative Trace HISTORIC AL RESULTS Glucose, ur Negative Negative HISTORIC AL RESULTS Ketones, ur Negative Negative HISTORIC AL RESULTS Bilirubin, ur Negative Negative HISTOR ICAL RESULTS U Blood Negative Negative HISTORICAL RESULTS Urobilinogen, quant, ur <2.0 <2.0 mg/dl HISTORICAL RESULTS Nitrites, ur Negative Negative HISTORI AGUILA RESULTS Leukocyte esterase, ur Negative Negative HISTORICAL RESULTS Urine 08/26/2015 4:57 AM CDT Reynold Leonrad MD LAB BLOOD ORDERABLES Fin al Result Performing Organization Address [facility] de Phone Number HISTORICAL RESULTS * (ABNORMAL) Urine microscopy (08/26/2015 4:57 AM CDT) RBC, ur 2 0 - 3 /hpf HISTORICA L RESULTS WBC, ur 0 0 - 5 /hpf HISTORICA L RESULTS Bacteria, ur Negative Trace HISTORI AGUILA RESULTS Epithelial cells, renal, ur 0 0 - 0 /hpf HISTORICAL RESULTS Mucus, ur Small /hpf HISTORICAL RESULTS Hyaline casts 1(H) 0 - 0 /lpf HISTO RICAL RESULTS Urine 08/26/2015 4:57 AM CDT Reynold Leonard MD LAB BLOOD ORDERABLES Fin al Result Performing Organization Address [facility] de Phone Number HISTORICAL RESULTS * Blood culture (08/26/2015 4:53 AM CDT) Blood specimen (specimen) (Arm, right) 08/26/2015 4:53 AM CDT 08/26/2015 5:49 AM CDT Impressions HISTORICAL RESULTS - 09/01/2015 5:42 AM CDT Blood cultures are incubated for [...] organism identification may be performed using the [employer] Nanosphere Gram Positive Blood Culture Assay. ??The Nanosphere assay detects microbial DNA in positive blood culture broth via hybridization of target DNA to capture oligonucleotides on a microarray. ??This assay has been cleared by the [place] Food and Drug Administration and its performance characteristics have been verified by the [facility]. Current Interpretive Data was last revised on 2013. Narrative HISTORICAL RESULTS - 09/01/2015 5:42 AM CDT No growth Historical Provider LAB MICROBIOLOGY - GENERA L ORDERABLES Final Result Performing Organization Address [facility] Co de Phone Number HISTORICAL RESULTS * Blood culture (08/26/2015 4:53 AM CDT) Blood specimen (specimen) (Antecubital, left) 08/26/2015 4:53 AM CDT 08/26/2015 5:49 AM CDT Impressions HISTORICAL RESULTS - 09/01/2015 5:42 AM CDT Blood cultures are incubated for [...] organism identification may be performed using the [employer] Nanosphere Gram Positive Blood Culture Assay. ??The Nanosphere assay detects microbial DNA in positive blood culture broth via hybridization of target DNA to capture oligonucleotides on a microarray. ??This assay has been cleared by the [place] Food and Drug Administration and its performance characteristics have been verified by the [facility]. Current Interpretive Data was last revised on 2013. Narrative HISTORICAL RESULTS - 09/01/2015 5:42 AM CDT No growth us Historical Provider LAB MICROBIOLOGY - GENERA L ORDERABLES Final Result HISTORICAL RESULTS * All Microbiology Report Section (08/26/2015 12:00 AM CDT) 08/26/2015 Narrative HISTORICAL RESULTS - 09/01/2015 6:53 AM CDT ? [facility] ?[address] [facility] [place] ?[place] [address] ? Patient Name: ??CAMILO MARTE ? Med Rec Number: [id number] ? Fin Number: ?[id number] ? Date: ?1970 ? Sex/Age: ? Male 44 years ? Admit Date: ?08/23/2015 ? Discharge Date: 08/27/2015 ? Doctor: ?Medicine , ? Facility: ?[facility] ? Location: ?OTHER ?* Abnormal ??A Alert ??f Footnote ??^ Corrected ??L Low ??H High ?i Interp Data ??@ Ref Lab ? Chart Type:Cumulative ?* * * * MICROBIOLOGY - BLOOD/STERILE FLUID * * * * ?PROCEDURE: Culture, Blood ? SOURCE: Blood ? COLLECTED: 08/26/15 ??0453 ?BODY SITE: Arm, right ? STARTED: 08/26/15 ??0549 ? FREE TEXT SOURCE: ? FINAL REPORT ? REPORTED: 09/01/15 0542 ? No growth ?* * * ??Interpretive [...] identification may be ? performed using the [employer] [place] Nanosphere Gram Positive Blood ? Culture Assay. ??The Nanosphere assay detects microbial DNA in ? positive blood culture broth via hybridization of target DNA to ? capture oligonucleotides on a microarray. ??This assay has been ? cleared by the [place] Food and Drug Administration and ? its performance characteristics have been verified by the ? [facility].Current ? Interpretive Data was last revised on 2013. ? us Historical Provider MD LAB MICROBIOLOGY - GENERA L ORDERABLES Final Result HISTORICAL RESULTS * All Microbiology Report Section (08/26/2015 12:00 AM CDT) 08/26/2015 Narrative HISTORICAL RESULTS - 09/01/2015 6:53 AM CDT ? [facility] ?[address] [facility] [place] ?[place] [address] ? Patient Name: ??CAMILO MARTE ? Med Rec Number: [id number] ? Fin Number: ?[id number] ? Date: ?1970 ? Sex/Age: ? Male 44 years ? Admit Date: ?08/23/2015 ? Discharge Date: 08/27/2015 ? Doctor: ?Medicine , ? Facility: ?[facility] ? Location: ?OTHER ?* Abnormal ??A Alert ??f Footnote ??^ Corrected ??L Low ??H High ?i Interp Data ??@ Ref Lab ? Chart Type:Cumulative ?* * * * MICROBIOLOGY - BLOOD/STERILE FLUID * * * * ?PROCEDURE: Culture, Blood ? SOURCE: Blood ? COLLECTED: 08/26/15 ??0453 ?BODY SITE: Antecubital, left ? STARTED: 08/26/15 ??0549 ? FREE TEXT SOURCE: ? FINAL REPORT ? REPORTED: 09/01/15 0542 ? No growth ?* * * ??Interpretive [...] identification may be ? performed using the [employer] Nanosphere Gram Positive Blood ? Culture Assay. ??The Nanosphere assay detects microbial DNA in ? positive blood culture broth via hybridization of target DNA to ? capture oligonucleotides on a microarray. ??This assay has been ? cleared by the [place] Food and Drug Administration and ? its performance characteristics have been verified by the ? [facility].Current ? Interpretive Data was last revised on 2013. ? us Historical Provider MD LAB MICROBIOLOGY - GENERA L ORDERABLES Final Result Performing Organization Address [facility] de Phone Number HISTORICAL RESULTS * Blood glucose, POC (08/25/2015 8:31 PM CDT) Glucose, POC, bld 128 70 - 199 mg/dl HISTORICAL RESULTS Blood specimen (specimen) 08/25/2015 8:31 PM CDT Kisha Quezada MD LAB BLOOD ORDERABLES Anastasiya l Result Performing Organization Address [facility] de Phone Number HISTORICAL RESULTS * Blood glucose, POC (08/25/2015 5:13 PM CDT) Glucose, POC, bld 140 70 - 199 mg/dl HISTORICAL RESULTS Blood specimen (specimen) 08/25/2015 5:13 PM CDT Kisha Quezada MD LAB BLOOD ORDERABLES Anastasiya l Result Performing Organization Address [facility] de Phone Number HISTORICAL RESULTS * CHEST RADIOGRAPHY, FRONTAL (AP), LATERAL (08/25/2015 1:38 PM CDT) Anatomical Region Laterality Modality N/A Radiographic Aruna ging 08/25/2015 1:38 PM CDT Narrative 08/26/2015 7:39 AM CDT CLEOPATRA DAMNO M.D. FINAL REPORT ACC# ??Date Time ??Exam [id number] Aug 25, 2015 13:38:00 [id number] Chest 2 views Front&Lat EXAMINATION: ?? Chest 2 views frontal and lateral IMPRESSION: ?Frontal and lateral views of the chest are reviewed with no prior for comparison. Lung volumes are low and there patchy areas of atelectasis, worst in the left lower lobe. If there is ongoing concern for pneumonia, a repeat examination with full inspiration may be helpful. No pleural effusion or pneumothorax. Heart size and mediastinal contour are slightly enlarged, but likely related to small lung volumes. Requested By: KENNEDY GARRISON M.D. Dictated By: ?? CLEOPATRA DAMON M.D. ??on Aug 26 2015 ??7:39A This document has been electronically signed by: CLEOPATRA DAMON M.D. on Aug 26 2015 ??7:39A [id number] Procedure Note Provider, MD Tyler - 08/24/2016 CLEOPATRA DAMON M.D. FINAL REPORT ACC# Date Time Exam [id number] Aug 25, 2015 13:38:00 [id number] Chest 2 views Front&Lat EXAMINATION: Chest 2 views frontal and lateral IMPRESSION: Frontal and lateral views of the chest are reviewed with no prior for comparison. Lung volumes are low and there patchy areas of atelectasis, worst in the left lower lobe. If there is ongoing concern for pneumonia, a repeat examination with full inspiration may be helpful. No pleural effusion or pneumothorax. Heart size and mediastinal contour are slightly enlarged, but likely related to small lung volumes. Requested By: KENNEDY GARRISON M.D. Dictated By: CLEOPATRA DAMON M.D. on Aug 26 2015 7:39A This document has been electronically signed by: CLEOPATRA DAMON M.D. on Aug 26 2015 7:39A [id number] us Historical Provider MD PATEL XR PROCEDURES Final R esult * Blood glucose, POC (08/25/2015 12:37 PM CDT) [facility] Glucose, POC, bld 83 70 - 199 mg/dl HISTORICAL RESULTS Blood specimen (specimen) 08/25/2015 12:37 PM CDT Kisha Quezada MD LAB BLOOD ORDERABLES Anastasiya l Result Performing Organization Address [facility] de Phone Number HISTORICAL RESULTS * Blood glucose, POC (08/25/2015 8:35 AM CDT) Glucose, POC, bld 75 70 - 199 mg/dl HISTORICAL RESULTS Blood specimen (specimen) 08/25/2015 8:35 AM CDT Kisha Quezada MD LAB BLOOD ORDERABLES Anastasiya l Result Performing Organization Address [facility] Phone Number HISTORICAL RESULTS * Serum troponin I (08/24/2015 10:37 PM CDT) Troponin I <0.03 0.00 - 0.03 ng/ml HISTORICAL RESULTS Comment: Interpretive Data Serial determinations are recommended for the diagnosis of myocardial infarction (Third Kemp Definition of Myocardial Infarction. ??J Am Tor Cardiol 2012;60:1581-98). Current interpretive data was last revised on 13. Serum 08/24/2015 10:3 7 PM CDT Yariel Melchor MD LAB BLOOD ORDERABLES Final Resul t Performing Organization Address [facility] de Phone Number HISTORICAL RESULTS * XR Abdomen 2 VW (08/24/2015 9:58 PM CDT) Anatomical Region Laterality Modality Body N/A Radiographic Aruna ging 08/24/2015 9:58 PM CDT Narrative 08/25/2015 10:07 AM CDT SREEKANTH CHAMBERS M.D. FINAL REPORT ACC# ??Date Time ??Exam [id number] Aug 24, 2015 21:58:00 [id number] Abdmn wi Decub &/or Erect EXAMINATION: ?? Abdomen with decubitus and or erect views. HISTORY: 44-year-old male with epigastric pain following EGD. COMPARISON: No prior available. IMPRESSION: ?? Supine and upright views of the abdomen are submitted for evaluation. No free intraperitoneal air is identified under the diaphragm on the upright images. Opacities in the left lower lobe may represent atelectasis and/or pneumonia. A nonobstructive bowel gas pattern is present. Requested By: Dictated By: ?? SREEKANTH CHAMBERS M.D. ??on Aug 25 2015 10:07A This document has been electronically signed by: SREEKANTH CHAMBERS M.D. on Aug 25 2015 10:07A [id number] Procedure Note Provider, Tyler, - 08/24/2016 SREEKANTH CHAMBERS M.D. FINAL REPORT ACC# Date Time Exam [id number] Aug 24, 2015 21:58:00 [id number] Abdmn wi Decub &/or Erect EXAMINATION: Abdomen with decubitus and or erect views. HISTORY: 44-year-old male with epigastric pain following EGD. COMPARISON: No prior available. IMPRESSION: Supine and upright views of the abdomen are submitted for evaluation. No free intraperitoneal air is identified under the diaphragm on the upright images. Opacities in the left lower lobe may represent atelectasis and/or pneumonia. A nonobstructive bowel gas pattern is present. Requested By: Dictated By: SREEKANTH CHAMBERS M.D. on Aug 25 2015 10:07A This document has been electronically signed by: SREEKANTH CHAMBERS M.D. on Aug 25 2015 10:07A [id number] us Historical Provider MD PATEL XR PROCEDURES Final R esult * (ABNORMAL) Blood cell count [CBC] express (08/24/2015 8:40 PM CDT) WBC 3.5(L) 3.8 - 9.9 K/cumm HISTORICAL RESULTS RBC 3.87(L) 4.30 - 5.80 M/cumm HISTORICAL RESULTS Hgb 10.8(L) 13.0 - 17.5 g/dl HISTORICAL RESULTS Hct 33.8(L) 38.9 - 50.3 % HISTORICAL RESULTS MCV 87.3 81.3 - 96.4 fl HISTORICAL RESULTS MCH 27.9 27.1 - 33.3 pg HISTORICAL RESULTS MCHC 32.0(L) 32.3 - 35.7 g/dl HISTORICAL RESULTS Rdw 14.2 11.1 - 14.9 % HISTORICAL RESULTS RDW 45.1 35.7 - 48.1 fl HISTORICAL RESULTS NRBC 0.0 0.0 - 0.2 % HISTORIC AL RESULTS NRBC, abs 0.00 0.00 - 0.01 K/cumm HISTORICAL RESULTS Platelets 71(L) 150 - 400 K/cumm HISTORICAL RESULTS MPV 12.2 9.1 - 12.3 fl HISTORICAL RESULTS Blood specimen (specimen) 08/24/2015 8:40 PM CDT Result [facility] LAB BLOOD ORDERABLES Anastasiya l Result Performing Organization Address [facility]/ZIP Co de Phone Number HISTORICAL RESULTS * Blood glucose, POC (08/24/2015 8:38 PM CDT) Glucose, POC, bld 98 70 - 199 mg/dl HISTORICAL RESULTS Blood specimen (specimen) 08/24/2015 8:38 PM CDT Result [facility] Kisha Quezada MD LAB BLOOD ORDERABLES Anastasiya l Result Performing Organization Address [facility] Co de Phone Number HISTORICAL RESULTS * Blood glucose, POC (08/24/2015 5:24 PM CDT) Glucose, POC, bld 101 70 - 199 mg/dl HISTORICAL RESULTS Blood specimen (specimen) 08/24/2015 5:24 PM CDT Kisha Quezada MD LAB BLOOD ORDERABLES Anastasiya l Result HISTORICAL RESULTS * Blood glucose, POC (08/24/2015 12:08 PM CDT) Glucose, POC, bld 93 70 - 199 mg/dl HISTORICAL RESULTS Blood specimen (specimen) 08/24/2015 12:08 PM CDT Result [facility] Kisha Quezada MD LAB BLOOD ORDERABLES Anastasiya l Result Performing Organization Address [facility] de Phone Number HISTORICAL RESULTS * Blood glucose, POC (08/24/2015 8:05 AM CDT) Glucose, POC, bld 98 70 - 199 mg/dl HISTORICAL RESULTS Blood specimen (specimen) 08/24/2015 8:05 AM CDT Result [facility] Kisha Quezada MD LAB BLOOD ORDERABLES Anastasiya l Result Performing Organization Address [facility] de Phone Number HISTORICAL RESULTS * UPPER GASTROINTESTINAL ENDOSCOPY REPORT (08/24/2015) Anatomical Region Laterality Modality Other Narrative 08/24/2015 Ordered by an unspecified provider. Result [facility] Historical Provider GI PROCEDURE ORDERABLES F inal Result * ELECTROCARDIOGRAPHY (ECG) (08/24/2015) Narrative 08/24/2015 Ordered by an unspecified provider. Result [facility] Historical Provider ECG ORDERABLES Final Res ult * Blood glucose, POC (08/23/2015 8:20 PM CDT) Glucose, POC, bld 88 70 - 199 mg/dl HISTORICAL RESULTS Blood specimen (specimen) 08/23/2015 8:20 PM CDT Result [facility] Kisha Quezada MD LAB BLOOD ORDERABLES Anastasiya l Result Performing Organization Address [facility] Co de Phone Number HISTORICAL RESULTS * Serum ceruloplasmin (08/23/2015 5:23 PM CDT) Ceruloplasmin 26.0 15.0 - 30.0 mg/dl HISTORICAL RESULTS Serum 08/23/2015 5:23 PM CDT Result [facility] Historical Provider LAB BLOOD ORDERABLES Anastasiya l Result Performing Organization Address [facility] Co de Phone Number HISTORICAL RESULTS * Serum Hepatitis C virus (HCV) RNA (08/23/2015 5:23 PM CDT) Pathologist [facility] HCV RNA Not Detected HISTORI AGUILA RESULTS Comment: Interpretive data: The quantifiable range of this assay is 15 IU/mL to 100,000,000 IU/mL (1.18 log IU/mL to 8.00 log IU/mL). Testing was performed by the [employer]IN TaqMan HCV Test version 2.0 ([employer] Testing performed at [facility] Current Interpretive Data was last revised on 2015. Serum 08/23/2015 5:23 PM CDT Historical Provider LAB BLOOD ORDERABLES Anastasiya l Result Performing Organization Address [facility] de Phone Number HISTORICAL RESULTS * Serum Hepatitis panel (08/23/2015 5:23 PM CDT) Pathologist [facility] HBV surface ag Negative NEG HISTO RICAL RESULTS HCV ab Negative NEG HISTORICAL RESULTS Comment: Interpretive Data If confirmation is required, call Laboratory Customer Service to request sample to be sent to [facility] for Hepatitis C Virus (HCV) RNA Detection and Quantitation by Real-Time Reverse Binder Sorter-PCR (RT-PCR). Current interpretive data was last revised [...] on 2007. Serum 08/23/2015 5:23 PM CDT us Historical Provider LAB BLOOD ORDERABLES Anastasiya enciso Result Performing Organization Address [facility] Co de Phone Number HISTORICAL RESULTS * Serum antimitochondrial ab (AMA) (08/23/2015 5:23 PM CDT) Anti-mitochond rial Negative Negative HISTORICAL RESULTS Serum 08/23/2015 5:23 PM CDT Historical Provider LAB BLOOD ORDERABLES Anastasiya l Result HISTORICAL RESULTS * (ABNORMAL) Serum iron profile (08/23/2015 5:23 PM CDT) Iron 49(L) 50 - 150 mcg/dl HISTORICAL RESULTS UIBC 301 112 - 347 mcg/dl HISTORICAL RESULTS TIBC 350 250 - 400 mcg/dl HISTORICAL RESULTS Transferrin saturation 14(L) 20 - 50 % HISTORICAL RESULTS Serum 08/23/2015 5:23 PM CDT Historical Provider LAB BLOOD ORDERABLES Anatsasiya l Result Performing Organization Address [facility]/ZIP Co de Phone Number HISTORICAL RESULTS * Serum Hepatitis B core ab (08/23/2015 5:23 PM CDT) HBV core ab Negative NEG HISTORIC AL RESULTS Serum 08/23/2015 5:23 PM CDT Historical Provider LAB BLOOD ORDERABLES Anastasiya l Result HISTORICAL RESULTS * Serum Hepatitis A ab total (08/23/2015 5:23 PM CDT) HAV ab, total Negative NEG HISTOR ICAL RESULTS Serum 08/23/2015 5:23 PM CDT Historical Provider LAB BLOOD ORDERABLES Anastasiya l Result HISTORICAL RESULTS * (ABNORMAL) Serum ferritin (08/23/2015 5:23 PM CDT) Ferritin 25(L) 30 - 400 ng/ml HISTORICAL RESULTS Serum 08/23/2015 5:23 PM CDT Historical Provider LAB BLOOD ORDERABLES Anastasiya l Result Performing Organization Address [facility] Co de Phone Number HISTORICAL RESULTS * Serum antismooth muscle ab (08/23/2015 5:23 PM CDT) Anti-smooth muscle Negative Negative HISTORICAL RESULTS Serum 08/23/2015 5:23 PM CDT Historical Provider LAB BLOOD ORDERABLES Anastasiya l Result Performing Organization Address [facility] Co de Phone Number HISTORICAL RESULTS * Serum emeot-0-ijeoovwkkmd (08/23/2015 5:23 PM CDT) alpha-1 antitrypsin 184 90 - 200 mg/dl HISTORICAL RESULTS Serum 08/23/2015 5:23 PM CDT Historical Provider LAB BLOOD ORDERABLES Anastasiya l Result Performing Organization Address [facility] de Phone Number HISTORICAL RESULTS * Serum alpha fetoprotein (08/23/2015 5:23 PM CDT) alpha Fetoprotein 3.0 0.0 - 8.1 ng/ml HISTORICAL RESULTS Serum 08/23/2015 5:23 PM CDT Historical Provider LAB BLOOD ORDERABLES Anastasiya l Result Performing Organization Address [facility] Co de Phone Number HISTORICAL RESULTS * (ABNORMAL) Blood cell count [CBC] express (08/23/2015 5:23 PM CDT) WBC 2.4(L) 3.8 - 9.9 K/cumm HISTORICAL RESULTS RBC 3.76(L) 4.30 - 5.80 M/cumm HISTORICAL RESULTS Hgb 10.7(L) 13.0 - 17.5 g/dl HISTORICAL RESULTS Hct 32.4(L) 38.9 - 50.3 % HISTORICAL RESULTS MCV 86.2 81.3 - 96.4 fl HISTORICAL RESULTS MCH 28.5 27.1 - 33.3 pg HISTORICAL RESULTS MCHC 33.0 32.3 - 35.7 g/dl HISTORICAL RESULTS Rdw 13.9 11.1 - 14.9 % HISTORICAL RESULTS RDW 43.1 35.7 - 48.1 fl HISTORICAL RESULTS NRBC 0.0 0.0 - 0.2 % HISTORIC AL RESULTS NRBC, abs 0.00 0.00 - 0.01 K/cumm HISTORICAL RESULTS Platelets 64(L) 150 - 400 K/cumm HISTORICAL RESULTS MPV 11.8 9.1 - 12.3 fl HISTORICAL RESULTS Blood specimen (specimen) 08/23/2015 5:23 PM CDT us Kisha Quezada MD LAB BLOOD ORDERABLES Anastasiya fernie Result HISTORICAL RESULTS * US Duplex Scan of Aorta; Inferior Vena Cava, Iliac, Complete (08/23/2015 4:23 PM CDT) Anatomical Region Laterality Modality Vascular Ultrasound 08/23/2015 4:23 PM CDT Narrative 08/23/2015 5:14 PM CDT KARL GIBSON M.D. PAUL BYERS M.D. FINAL REPORT The radiology attending physician has personally reviewed this study, and has reviewed and/or edited this written report and agrees with it. ACC# ??Date Time ??Exam [id number] Aug 23, 2015 16:23:00 [id number] Abd Orgn Duplex ACC# ??Date Time ??Exam [id number] Aug 23, 2015 16:23:00 [id number] Abd Orgn Duplex EXAMINATION: ?LIVER DOPPLER HISTORY: ??44-year-old man with cirrhosis complicated by esophageal varices presents with right upper quadrant pain. FINDINGS: Color Doppler and spectral analysis were used to evaluate the hepatic vasculature. ??The main portal vein as well as the right and left branches have hepatopetal (antegrade) flow. ??No thrombosis is visualized. The middle, right, and left hepatic veins are also patent with antegrade flow, normal waveforms, and no thrombus. ??The inferior vena cava at the level of the liver is patent with appropriate directional flow. ??The visualized main hepatic artery is patent with antegrade flow. Lakshmi Love PA-C, also participated in the study. ?? IMPRESSION: ?? No Doppler evidence of thrombosis. ?? Requested By: KENNEDY GARRISON M.D. Dictated By: ?? PAUL BYERS M.D. ??on Aug 23 2015 ??4:47P This document has been electronically signed by: KARL GIBSON M.D. on Aug 23 2015 ??5:14P Procedure Note Provider, MD Tyler - 08/24/2016 KARL GIBSON M.D. PAUL BYERS M.D. FINAL REPORT The radiology attending physician has personally reviewed this study, and has reviewed and/or edited this written report and agrees with it. ACC# Date Time Exam [id number] Aug 23, 2015 16:23:00 [id number] Abd Orgn Duplex ACC# Date Time Exam [id number] Aug 23, 2015 16:23:00 [id number] Abd Orgn Duplex EXAMINATION: LIVER DOPPLER HISTORY: 44-year-old man with cirrhosis complicated by esophageal varices presents with right upper quadrant pain. FINDINGS: Color Doppler and spectral analysis were used to evaluate the hepatic vasculature. The main portal vein as well as the right and left branches have hepatopetal (antegrade) flow. No thrombosis is visualized. The middle, right, and left hepatic veins are also patent with antegrade flow, normal waveforms, and no thrombus. The inferior vena cava at the level of the liver is patent with appropriate directional flow. The visualized main hepatic artery is patent with antegrade flow. Lakshmi Love PA-C, also participated in the study. IMPRESSION: No Doppler evidence of thrombosis. Requested By: KENNEDY GARRISON M.D. Dictated By: PAUL BYERS M.D. on Aug 23 2015 4:47P This document has been electronically signed by: KARL GIBSON M.D. on Aug 23 2015 5:14P us Historical Provider CV VASCULAR PROCEDURES Fi nal Result * Blood glucose, POC (08/23/2015 2:46 PM CDT) Glucose, POC, bld 92 70 - 199 mg/dl HISTORICAL RESULTS Blood specimen (specimen) 08/23/2015 2:46 PM CDT us Kisha Quezada MD LAB BLOOD ORDERABLES Anastasiya enciso Result HISTORICAL RESULTS * NM Hepatobiliary Scan W Rx (08/23/2015 1:46 PM CDT) Anatomical Region Laterality Modality Body N/A Nuclear Medicine 08/23/2015 1:46 PM CDT Narrative 08/23/2015 2:02 PM CDT PING SIMPSON M.D. SIRI CERNA M.D. FINAL REPORT The radiology attending physician has personally reviewed this study, and has reviewed and/or edited this written report and agrees with it. ACC# ??Date Time ??Exam [id number] Aug 23, 2015 13:46:00 [id number] [employer] GB if pr EXAMINATION: ?HEPATOBILIARY SCINTIGRAPHY DATE OF STUDY: ??08/23/2015 RADIOPHARMACEUTICAL: ??3.5 mCi Tc-99m mebrofenin i.v. ; 2.17 microgram of ?? sincalide given patient has been n.p.o. for the past 24 hours. HISTORY: ??44-year-old man with right upper quadrant pain. ??The most recently obtained serum total bilirubin was 0.2 mg/dL on 08/22/2015. FINDINGS: ??Following intravenous administration of Tc-99m mebrofenin, sequential abdominal images were obtained through 80 minutes. ??There is decreased flow to the liver on the initial angiographic phase. There is normal filling of the intrahepatic ducts, common bile duct and gallbladder and normal excretion of the tracer into the duodenum on subsequent images. ?? IMPRESSION: ?No evidence of acute cholecystitis. ?? Requested By: KISHA QUEZADA M.D. Dictated By: ?? SIRI CERNA M.D. ??on Aug 23 2015 ??2:00P This document has been electronically signed by: PING SIMPSON M.D. on Aug 23 2015 ??2:02P Procedure Note Provider, MD [place] - 08/24/2016 PING SIMPSON M.D. SIRI CERNA M.D. FINAL REPORT The radiology attending physician has personally reviewed this study, and has reviewed and/or edited this written report and agrees with it. ACC# Date Time Exam [id number] Aug 23, 2015 13:46:00 [id number] [employer] GB if pr EXAMINATION: HEPATOBILIARY SCINTIGRAPHY DATE OF STUDY: 08/23/2015 RADIOPHARMACEUTICAL: 3.5 mCi Tc-99m mebrofenin i.v. ; 2.17 microgram of sincalide given patient has been n.p.o. for the past 24 hours. HISTORY: 44-year-old man with right upper quadrant pain. The most recently obtained serum total bilirubin was 0.2 mg/dL on 08/22/2015. FINDINGS: Following intravenous administration of Tc-99m mebrofenin, sequential abdominal images were obtained through 80 minutes. There is decreased flow to the liver on the initial angiographic phase. There is normal filling of the intrahepatic ducts, common bile duct and gallbladder and normal excretion of the tracer into the duodenum on subsequent images. IMPRESSION: No evidence of acute cholecystitis. Requested By: KISHA QUEZADA M.D. Dictated By: SIRI CERNA M.D. on Aug 23 2015 2:00P This document has been electronically signed by: PING SIMPSON M.D. on Aug 23 2015 2:02P us Historical Provider MD PATEL NM PROCEDURES Final R esult * Serum Hepatitis C genotype (08/23/2015 12:23 PM CDT) HCV genotype Undetected Undetected HISTO RICAL RESULTS Serum 08/23/2015 12:2 3 PM CDT Narrative HISTORICAL RESULTS - 08/27/2015 10:15 AM CDT Assay failed to detect HCV RNA. This assay is not intended for HCV RNA detection purposes. ADDITIONAL INFORMATION This test was performed using the [employer] RealTime HCV Genotype II assay ([employer] [place], [place]). Test Performed by: [address] [address] Music Executive: Karl Austin II, M.D., Ph.D. Historical Provider LAB BLOOD ORDERABLES Anastasiya enciso Result Performing Organization Address [facility] de Phone Number HISTORICAL RESULTS * Serum antinuclear ab (NILE) (08/23/2015 12:23 PM CDT) NILE, qual Negative Negative HISTORICAL RESULTS Serum 08/23/2015 12:2 3 PM CDT Narrative HISTORICAL RESULTS - 08/24/2015 9:13 AM CDT Interpretive Data Normal range for Nile Qualitative Antibody = Negative. 1. ??NILE titers are performed on all positive qualitative results. 2. ??A significantly positive NILE result is defined as a positive nuclear fluorescence at a titer of 1:80 or greater. 3. ??15% of normal people above age 65 have significantly positive NILE results. ??5% or less of normal people age 65 or under have significantly positive NILE results. Current interpretive data was last revised on 03. Historical Provider LAB BLOOD ORDERABLES Anastasiya l Result Performing Organization Address [facility] de Phone Number HISTORICAL RESULTS * Serum Hepatitis B core ab, IgM (08/23/2015 12:23 PM CDT) HBV core ab, IgM Negative NEG HISTORICAL RESULTS Serum 08/23/2015 12:2 3 PM CDT Narrative HISTORICAL RESULTS - 08/24/2015 6:04 AM CDT Interpretive Data If test is reported as Equivocal, new sample should be drawn for testing. Current interpretive data was last revised on 2007. Historical Provider LAB BLOOD ORDERABLES Anastasiya l Result Performing Organization Address [facility] de Phone Number HISTORICAL RESULTS * Serum alpha fetoprotein, new (08/23/2015 12:23 PM CDT) alpha Fetoprotein 2.0 0.0 - 8.3 ng/ml HISTORICAL RESULTS Serum 08/23/2015 12:2 3 PM CDT Narrative HISTORICAL RESULTS - 08/23/2015 2:10 PM CDT The method for this assay was changed on August 07, 2015. For a period of six months the new assay result will be reported alongside results from the old assay method. For patients being monitored, the new results should be interpreted in the context of any changes in the old results. If you have questions please call the chemistry laboratory at [phone] ??or the lab medicine resident production dispatcher [phone]. Option #2 us Historical Provider LAB BLOOD ORDERABLES Anastasiya l Result Performing Organization Address [facility] Co de Phone Number HISTORICAL RESULTS * Blood glucose, POC (08/23/2015 4:37 AM CDT) [facility] Glucose, POC, bld 95 70 - 199 mg/dl HISTORICAL RESULTS Blood specimen (specimen) 08/23/2015 4:37 AM CDT us Historical Provider LAB BLOOD ORDERABLES Anastasiya l Result Performing Organization Address [facility] Co de Phone Number HISTORICAL RESULTS * US Abdomen Limited (08/22/2015 9:25 PM CDT) Anatomical Region Laterality Modality Abdomen N/A Ultrasound 08/22/2015 9:25 PM CDT Narrative 08/23/2015 10:01 AM CDT KARL GIBSON M.D. VIKTORIA BOWDEN M.D. FINAL REPORT The radiology attending physician has personally reviewed this study, and has reviewed and/or edited this written report and agrees with it. ACC# ??Date Time ??Exam [id number] Aug 22, 2015 21:25:00 [id number] [employer] EXAMINATION: ?? LIMITED ABDOMINAL SONOGRAM HISTORY: ??44-year-old man with right upper quadrant pain FINDINGS: ??There are stones within the gallbladder. ??There is gallbladder wall thickening measuring up to 7 mm. There is small volume pericholecystic fluid. There is a positive sonographic Espinoza sign. The liver is normal in size. ??The echotexture is coarse. ??The echogenicity is normal. There is no surface nodularity. ??No focal solid lesions are visualized. ??There is no intrahepatic bile duct dilatation. The common duct measures 2 mm, 3 mm in the proximal and mid aspects of the common duct. The distal aspect of the common duct is not visualized secondary to overlying bowel gas. There is no hydronephrosis in the visualized portion of the right kidney. The pancreas is not visualized secondary to overlying bowel gas. The proximal IVC is normal. ?? IMPRESSION: 1. ??Cholelithiasis with sonographic evidence of acute cholecystitis. These findings were communicated to ANDREA Pappas by Dr. Bowden, on 08/22/2015 at 9:49 p.m. ADDENDUM: This addendum is being placed on the report for a non-time dependent finding on a patient who is admitted to the hospital (Category 2C). Although the diagnosis of acute cholecystitis is possible, this this is not definitive, as small volume pericholecystic fluid may in fact represent small volume ascitic fluid which may be seen in the setting of chronic liver disease. Liver disease could also explain the gallbladder wall thickening. Further evaluation with HIDA scan should be considered. These findings were communicated to Dr. Cerna by Dr. Bowden on 08/23/2015 at 9:51 a.m. ?? Requested By: SUJATHA PAPPAS [facility] Dictated By: ?? VIKTORIA BOWDEN M.D. ??on Aug 23 2015 ??9:52A This document has been electronically signed by: KARL GIBSON M.D. on Aug 23 2015 10:01A Procedure Note Provider, MD [place] - 08/24/2016 KARL GIBSON M.D. VIKTORIA BOWDEN M.D. FINAL REPORT The radiology attending physician has personally reviewed this study, and has reviewed and/or edited this written report and agrees with it. ACC# Date Time Exam [id number] Aug 22, 2015 21:25:00 [id number] [employer] EXAMINATION: LIMITED ABDOMINAL SONOGRAM HISTORY: 44-year-old man with right upper quadrant pain FINDINGS: There are stones within the gallbladder. There is gallbladder wall thickening measuring up to 7 mm. There is small volume pericholecystic fluid. There is a positive sonographic Espinoza sign. The liver is normal in size. The echotexture is coarse. The echogenicity is normal. There is no surface nodularity. No focal solid lesions are visualized. There is no intrahepatic bile duct dilatation. The common duct measures 2 mm, 3 mm in the proximal and mid aspects of the common duct. The distal aspect of the common duct is not visualized secondary to overlying bowel gas. There is no hydronephrosis in the visualized portion of the right kidney. The pancreas is not visualized secondary to overlying bowel gas. The proximal IVC is normal. IMPRESSION: 1. Cholelithiasis with sonographic evidence of acute cholecystitis. These findings were communicated to ANDREA Pappas by Dr. Bowden, on 08/22/2015 at 9:49 p.m. ADDENDUM: This addendum is being placed on the report for a non-time dependent finding on a patient who is admitted to the hospital (Category 2C). Although the diagnosis of acute cholecystitis is possible, this this is not definitive, as small volume pericholecystic fluid may in fact represent small volume ascitic fluid which may be seen in the setting of chronic liver disease. Liver disease could also explain the gallbladder wall thickening. Further evaluation with HIDA scan should be considered. These findings were communicated to Dr. Cerna by Dr. Bowden on 08/23/2015 at 9:51 a.m. Requested By: SUJATHA PAPPAS [facility] Dictated By: VIKTORIA BOWDEN M.D. on Aug 23 2015 9:52A This document has been electronically signed by: KARL GIBSON M.D. on Aug 23 2015 10:01A us Historical Provider MD PATEL US PROCEDURES Final R esult * Plasma partial thromboplastin time (PTT) (08/22/2015 8:20 PM CDT) APTT 30.2 25.0 - 37.0 seconds HISTORICAL RESULTS Comment: Interpretive Data Therapeutic heparin range:60.0 - 94.0 sec based on correlation with therapeutic heparin activity range of 0.3 -0.7 Units/mL. Current interpretive data was last revised on 2011. Plasma 08/22/2015 8:20 PM CDT Result [facility] Sujatha Pappas CRNA LAB BLOOD ORDERABLES Fi nal Result Performing Organization Address [facility] Co de Phone Number HISTORICAL RESULTS * (ABNORMAL) Plasma prothrombin time (PT) (08/22/2015 8:20 PM CDT) Prothrombin time (PT) 13.9(H) 9.2 - 13.0 seconds HISTORICAL RESULTS INR 1.28(H) 0.90 - 1.20 HISTORIC AL RESULTS Comment: Interpretive Data Inpatient therapeutic ranges* Atrial fibrillation ?2.0-3.0 INR Venous thrombo-embolism ?2.0-3.0 INR Bioprosthetic heart valve ?* Mechanical heart valve, bileaflet or tilting disk,aortic position ? 2.0-3.0 INR All other,or bileaflet or tilting disk, in mitral position ? 2.5-3.5 INR *See the pharmacy resource directory (PHRED) for an updated copy of the Tool Book at [email or web address] Current Interpretive Data was last revised 2011. Plasma 08/22/2015 8:20 PM CDT Sujatha Pappas CRNA LAB BLOOD ORDERABLES Fi nal Result Performing Organization Address [facility]/ZIP Co de Phone Number HISTORICAL RESULTS * Urinalysis (08/22/2015 7:56 PM CDT) Color, ur Yellow Yellow HISTORICAL RESULTS Clarity, ur Clear Clear HISTORIC AL RESULTS Specific gravity, ur 1.020 1.003 - 1.030 HISTORICAL RESULTS pH, ur 5.0 5.0 - 8.0 HISTORICAL RESULTS Protein, ur Negative Trace HISTORIC AL RESULTS Glucose, ur Negative Negative HISTORIC AL RESULTS Ketones, ur Negative Negative HISTORIC AL RESULTS Bilirubin, ur Negative Negative HISTOR ICAL RESULTS U Blood Negative Negative HISTORICAL RESULTS Urobilinogen, quant, ur <2.0 <2.0 mg/dl HISTORICAL RESULTS Nitrites, ur Negative Negative HISTORI AGUILA RESULTS Leukocyte esterase, ur Negative Negative HISTORICAL RESULTS Urine 08/22/2015 7:56 PM CDT Mario Ren MD LAB BLOOD ORDERABLES Final Res ult Performing Organization Address [facility] de Phone Number HISTORICAL RESULTS * Plasma hepatic function panel (08/22/2015 2:14 PM CDT) Pathologist [facility] Protein, pl 7.3 6.5 - 8.5 g/dl HISTORICAL RESULTS Alb 4.1 3.5 - 5.0 g/dl HISTORICAL RESULTS Bilirubin 0.8 0.1 - 1.2 mg/dl HISTORICAL RESULTS Bilirubin, direct 0.2 0.1 - 0.3 mg/dl HISTORICAL RESULTS Alk phos 87 40 - 130 Units/L HISTORICAL RESULTS AST 47 10 - 50 Units/L HISTORICAL RESULTS ALT 46 7 - 55 Units/L HISTORICAL RESULTS Plasma 08/22/2015 2:14 PM CDT Mario Ren MD LAB BLOOD ORDERABLES [facility] Performing Organization Address [facility] de Phone Number HISTORICAL RESULTS * Plasma basic metabolic panel (08/22/2015 2:14 PM CDT) Pathologist [facility] Sodium 139 135 - 145 mmol/L HISTORICAL RESULTS K, pl 4.3 3.3 - 4.9 mmol/L HISTORICAL RESULTS Chloride 104 97 - 110 mmol/L HISTORICAL RESULTS CO2 27 22 - 32 mmol/L HISTORICAL RESULTS A. gap 8 2 - 15 mmol/L HISTORICAL RESULTS Glucose 80 70 - 199 mg/dl HISTORICAL RESULTS BUN 12 8 - 25 mg/dl HISTORICAL RESULTS Creatinine 0.90 0.80 - 1.30 mg/dl HISTORICAL RESULTS Calcium 9.2 8.5 - 10.3 mg/dl HISTORICAL RESULTS Plasma 08/22/2015 2:14 PM CDT Mario Ren MD LAB BLOOD ORDERABLES Final Res ult HISTORICAL RESULTS * Serum lipase (08/22/2015 2:14 PM CDT) Lip 35 10 - 99 Units/L HISTORICAL RESULTS Serum 08/22/2015 2:14 PM CDT Mario Ren MD LAB BLOOD ORDERABLES Final Res ult Performing Organization Address [facility]/ZIP Co de Phone Number HISTORICAL RESULTS * (ABNORMAL) Blood cell count (CBC) (08/22/2015 2:14 PM CDT) WBC 3.8 3.8 - 9.9 K/cumm HISTORICAL RESULTS RBC 3.87(L) 4.30 - 5.80 M/cumm HISTORICAL RESULTS Hgb 10.9(L) 13.0 - 17.5 g/dl HISTORICAL RESULTS Hct 33.0(L) 38.9 - 50.3 % HISTORICAL RESULTS MCV 85.3 81.3 - 96.4 fl HISTORICAL RESULTS MCH 28.2 27.1 - 33.3 pg HISTORICAL RESULTS MCHC 33.0 32.3 - 35.7 g/dl HISTORICAL RESULTS Rdw 14.1 11.1 - 14.9 % HISTORICAL RESULTS RDW 43.3 35.7 - 48.1 fl HISTORICAL RESULTS Platelets 87(L) 150 - 400 K/cumm HISTORICAL RESULTS MPV 11.7 9.1 - 12.3 fl HISTORICAL RESULTS NRBC 0.0 0.0 - 0.2 % HISTORIC AL RESULTS NRBC, abs 0.00 0.00 - 0.01 K/cumm HISTORICAL RESULTS Blood specimen (specimen) 08/22/2015 2:14 PM CDT Mario Ren MD LAB BLOOD ORDERABLES Final Res ult Performing Organization Address [facility]/State/ZIP Co de Phone Number HISTORICAL RESULTS * (ABNORMAL) Blood cell morphologic exam (08/22/2015 2:14 PM CDT) Neutrophils 68.2 % HISTORIC AL RESULTS Immature granulocytes 0.3 % HISTORICAL RESULTS Lymphocytes 15.2 % HISTORIC AL RESULTS Monos 12.6 % HISTORICAL RESULTS Eosinophils 2.9 % HISTORIC AL RESULTS Basophils 0.8 % HISTORICAL RESULTS Neutrophils, abs 2.6 1.7 - 6.5 K/cumm HISTORICAL RESULTS Immature granulocyte, abs 0.0 0.0 - 0.1 K/cumm HISTORICAL RESULTS Lymphocytes, abs 0.6(L) 0.8 - 3.3 K/cumm HISTORICAL RESULTS Monocytes, absolute 0.5 0.2 - 0.8 K/cumm HISTORICAL RESULTS Eosinophils, abs 0.1 0.0 - 0.5 K/cumm HISTORICAL RESULTS Basophils, abs 0.0 0.0 - 0.1 K/cumm HISTORICAL RESULTS Blood specimen (specimen) 08/22/2015 2:14 PM CDT Mario Ren MD LAB BLOOD ORDERABLES Final Res ult HISTORICAL RESULTS * Blood glucose, POC (08/22/2015 1:19 PM CDT) Pathologist [facility] Glucose, POC, bld 80 70 - 199 mg/dl HISTORICAL RESULTS Blood specimen (specimen) 08/22/2015 1:19 PM CDT Historical Provider LAB BLOOD ORDERABLES Anastasiya l Result Performing Organization Address [facility]/ZIP Co de Phone Number HISTORICAL RESULTS documented in this encounter Visit Diagnoses Diagnosis Calculus of gallbladder without cholecystitis without obstruction Secondary esophageal varices without bleeding (CMS/HCC) (HCC) Portal hypertension (CMS/HCC) (HCC) Portal hypertension Other cirrhosis of liver (HCC) Type 2 diabetes mellitus without complications (CMS/HCC) (HCC) Iron deficiency anemia Unspecified iron deficiency anemia Allergy status to penicillin Allergy status to sulfonamides Allergy status to other drugs, medicaments and biological substances status Allergy status to other anti-infective agents status Radiographic dye allergy status Other diseases of stomach and duodenum Nonalcoholic steatohepatitis (BLAND) History of self-harm Personal history of nicotine dependence Obesity Obesity, unspecified documented in this encounter
--- OUTSIDE RECORDS SUMMARY | 2024-04-19 23:10 | XMS_ITS | Encounter Summary ---
Author Organization [facility] Facility Care Team Providers Care Launch Steward Name Role Phone Unavailable Primary Care Provider Unavailabl e Encounter Details Date Type Department Care Team (Latest Contact Info) Description 09/26/2015 12:34 PM CDT - 09/28/2015 2:41 PM CDT Hospital Encounter [facility] Jessica Pereira MD [address] [place] [address] Lelia Garcia MD [address] [place] [address] Secondary esophageal varices without bleeding (CMS/HCC); Portal hypertension (CMS/HCC); Other diseases of stomach and duodenum; Polyp of stomach and duodenum; Anxiety disorder; Nonalcoholic steatohepatitis (BLAND); Bipolar disorder (CMS/HCC); Type 2 diabetes mellitus without complications (CMS/HCC); Sleep apnea; Acute cholecystitis; Personal history of nicotine dependence; [facility] current use of opiate analgesic; Other center specialists (current) drug therapy Social History Tobacco Use Types Packs/Day Years Used Date Smoking Tobacco: Never Assessed Sex and Gender Information Value Date Recorded Sex Assigned at Not on file Legal Sex Male 2:52 PM RHINOLOGIST Gender Identity Male 10/29/2020 12:37 PM CDT Sexual Orientation Straight 10/29/2020 12 :37 PM CDT documented as of this encounter Last Filed Vital Signs Vital Sign Reading Time Taken Comments Blood Pressure 120/64 09/28/2015 11:45 AM CDT Pulse 60 09/28/2015 11:45 AM CDT Temperature - - Respiratory Rate - - Oxygen Saturation 95% 09/28/2015 11: 45 AM CDT Inhaled Oxygen Concentration - - Weight 104.3 kg (229 lb 15.7 oz) 09/27/2015 2:20 AM CDT Height 172.7 cm (5' 8 ) 09/27/2015 2:20 AM CDT Body Mass Index 34.97 09/27/2015 2:20 AM CDT documented in this encounter Medications [...] Associated Diagnosis Comments BLOOD GLUCOSE, POC Routine 09/28/2015 2: 03 PM CDT BLOOD GLUCOSE, POC Routine 09/28/2015 8: 13 AM CDT BLOOD GLUCOSE, POC Routine 09/28/2015 3: 49 AM CDT DISCHARGE LABORATORY CUMULATIVE REPORT 09/28/2015 PLASMA COMPREHENSIVE METABOLIC PANEL Routine 09/27/2015 8:52 PM CDT BLOOD CELL COUNT (CBC) Routine 6 8:52 PM CDT BLOOD CELL MORPHOLOGIC EXAM Routine 09/27/2015 8:52 PM CDT BLOOD GLUCOSE, POC Routine 09/27/2015 8: 23 PM CDT BLOOD GLUCOSE, POC Routine 09/27/2015 1: 54 PM CDT URINALYSIS Routine 09/27/2015 10:36 AM CDT BLOOD GLUCOSE, POC Routine 09/27/2015 7: 45 AM CDT PLASMA PROTHROMBIN TIME (PT) Routine 09/27/2015 3:10 AM CDT PLASMA PARTIAL THROMBOPLASTIN TIME (PTT) Routine 09/27/2015 3:10 AM CDT BLOOD CELL COUNT Routine 09/27/2015 3:1 0 AM CDT BLOOD GLUCOSE, POC Routine 09/27/2015 2: 10 AM CDT UPPER GASTROINTESTINAL ENDOSCOPY REPORT 09/27/2015 BLOOD GLUCOSE, POC Routine 09/26/2015 11 :03 PM CDT BLOOD CHECK SAMPLE Routine 09/26/2015 8: 15 PM CDT SERUM LIPASE Routine 09/26/2015 3:22 PM CDT PLASMA HEPATIC FUNCTION PANEL Routine 09/26/2015 3:22 PM CDT PLASMA BASIC METABOLIC PANEL Routine 09/26/2015 3:22 PM CDT BLOOD CELL COUNT (CBC) Routine 6 3:22 PM CDT BLOOD ABO, RH, INDIRECT AB SCREEN Routine 09/26/2015 3:22 PM CDT BLOOD CELL MORPHOLOGIC EXAM Routine 09/26/2015 3:22 PM CDT BLOOD GLUCOSE, POC Routine 09/26/2015 1: 09 PM CDT documented in this encounter Results * Blood glucose, POC (09/28/2015 2:03 PM CDT) Glucose, POC, bld 129 70 - 199 mg/dl HISTORICAL RESULTS Blood specimen (specimen) 09/28/2015 2:03 PM CDT Jessica Gleason MD LAB BLOOD ORDERABLES Final Result Performing Organization Address [facility] de Phone Number HISTORICAL RESULTS * Blood glucose, POC (09/28/2015 8:13 AM CDT) Glucose, POC, bld 145 70 - 199 mg/dl HISTORICAL RESULTS Blood specimen (specimen) 09/28/2015 8:13 AM CDT Jessica Gleason MD LAB BLOOD ORDERABLES Final Result Performing Organization Address [facility] de Phone Number HISTORICAL RESULTS * Blood glucose, POC (09/28/2015 3:49 AM CDT) Glucose, POC, bld 102 70 - 199 mg/dl HISTORICAL RESULTS Blood specimen (specimen) 09/28/2015 3:49 AM CDT Jessica Gleason MD LAB BLOOD ORDERABLES Final Result Performing Organization Address [facility] de Phone Number HISTORICAL RESULTS * DISCHARGE LABORATORY CUMULATIVE REPORT (09/28/2015) Narrative 09/28/2015 Ordered by an unspecified provider. Historical Provider LAB BLOOD ORDERABLES Anastasiya l Result * (ABNORMAL) Plasma comprehensive metabolic panel (09/27/2015 8:52 PM CDT) Sodium 140 135 - 145 mmol/L HISTORICAL RESULTS K, pl 4.1 3.3 - 4.9 mmol/L HISTORICAL RESULTS Chloride 104 97 - 110 mmol/L HISTORICAL RESULTS CO2 25 22 - 32 mmol/L HISTORICAL RESULTS A. gap 11 2 - 15 mmol/L HISTORICAL RESULTS Glucose 126 70 - 199 mg/dl HISTORICAL RESULTS BUN 14 8 - 25 mg/dl HISTORICAL RESULTS Creatinine 1.01 0.80 - 1.30 mg/dl HISTORICAL RESULTS Calcium 8.6 8.5 - 10.3 mg/dl HISTORICAL RESULTS Protein, pl 7.0 6.5 - 8.5 g/dl HISTORICAL RESULTS Alb 3.7 3.5 - 5.0 g/dl HISTORICAL RESULTS Bilirubin 0.8 0.1 - 1.2 mg/dl HISTORICAL RESULTS Alk phos 79 40 - 130 Units/L HISTORICAL RESULTS AST 86(H) 10 - 50 Units/L HISTORICAL RESULTS ALT 71(H) 7 - 55 Units/L HISTORICAL RESULTS Plasma 09/27/2015 8:52 PM CDT Margoth Lafleur MD LAB BLOOD ORDERABLES Final Resul t HISTORICAL RESULTS * (ABNORMAL) Blood cell count (CBC) (09/27/2015 8:52 PM CDT) WBC 2.5(L) 3.8 - 9.9 K/cumm HISTORICAL RESULTS RBC 4.11(L) 4.30 - 5.80 M/cumm HISTORICAL RESULTS Hgb 10.6(L) 13.0 - 17.5 g/dl HISTORICAL RESULTS Hct 33.8(L) 38.9 - 50.3 % HISTORICAL RESULTS MCV 82.2 81.3 - 96.4 fl HISTORICAL RESULTS MCH 25.8(L) 27.1 - 33.3 pg HISTORICAL RESULTS MCHC 31.4(L) 32.3 - 35.7 g/dl HISTORICAL RESULTS Rdw 14.2 11.1 - 14.9 % HISTORICAL RESULTS RDW 41.6 35.7 - 48.1 fl HISTORICAL RESULTS Platelets 63(L) 150 - 400 K/cumm HISTORICAL RESULTS MPV 12.1 9.1 - 12.3 fl HISTORICAL RESULTS NRBC 0.0 0.0 - 0.2 % HISTORIC AL RESULTS NRBC, abs 0.00 0.00 - 0.01 K/cumm HISTORICAL RESULTS Blood specimen (specimen) 09/27/2015 8:52 PM CDT Result [facility] Margoth Lafleur MD LAB BLOOD ORDERABLES Final Resul t Performing Organization Address [facility]/State/ZIP Co de Phone Number HISTORICAL RESULTS * (ABNORMAL) Blood cell morphologic exam (09/27/2015 8:52 PM CDT) Neutrophils 62.0 % HISTORIC AL RESULTS Immature granulocytes 0.4 % HISTORICAL RESULTS Lymphocytes 23.3 % HISTORIC AL RESULTS Monos 11.1 % [...] 0.1 K/cumm HISTORICAL RESULTS Blood specimen (specimen) 09/27/2015 8:52 PM CDT Result [facility] Margoth Lafleur MD LAB BLOOD ORDERABLES Final Resul t Performing Organization Address [facility]/ZIP Co de Phone Number HISTORICAL RESULTS * Blood glucose, POC (09/27/2015 8:23 PM CDT) Glucose, POC, bld 132 70 - 199 mg/dl HISTORICAL RESULTS Blood specimen (specimen) 09/27/2015 8:23 PM CDT Jessica Gleason MD LAB BLOOD ORDERABLES Final Result Performing Organization Address [facility]/State/ZIP Co de Phone Number HISTORICAL RESULTS * Blood glucose, POC (09/27/2015 1:54 PM CDT) Glucose, POC, bld 125 70 - 199 mg/dl HISTORICAL RESULTS Blood specimen (specimen) 09/27/2015 1:54 PM CDT Jessica Gleason MD LAB BLOOD ORDERABLES Final Result Performing Organization Address [facility] de Phone Number HISTORICAL RESULTS * Urinalysis (09/27/2015 10:36 AM CDT) Color, ur Yellow Yellow HISTORICAL RESULTS Clarity, ur Clear Clear HISTORIC AL RESULTS Specific gravity, ur 1.021 1.003 - 1.030 HISTORICAL RESULTS pH, ur [...] esterase, ur Negative Negative HISTORICAL RESULTS Urine 09/27/2015 10:3 6 AM CDT Jessica Gleason MD LAB BLOOD ORDERABLES Final Result Performing Organization Address [facility] de Phone Number HISTORICAL RESULTS * Blood glucose, POC (09/27/2015 7:45 AM CDT) Glucose, POC, bld 90 70 - 199 mg/dl HISTORICAL RESULTS Blood specimen (specimen) 09/27/2015 7:45 AM CDT Jessica Gleason MD LAB BLOOD ORDERABLES Final Result Performing Organization Address [facility] de Phone Number HISTORICAL RESULTS * Plasma partial thromboplastin time (PTT) (09/27/2015 3:10 AM CDT) APTT 31.4 25.0 - 37.0 seconds HISTORICAL RESULTS Comment: Interpretive Data Therapeutic heparin range:60.0 - 94.0 sec based on correlation with therapeutic heparin activity range of 0.3 -0.7 Units/mL. Current interpretive data was last revised on 2011. Plasma 09/27/2015 3:10 AM CDT Jessica Gleason MD LAB BLOOD ORDERABLES Final Result Performing Organization Address [facility] de Phone Number HISTORICAL RESULTS * Plasma prothrombin time (PT) (09/27/2015 3:10 AM CDT) Prothrombin time (PT) 13.0 9.2 - 13.0 seconds HISTORICAL RESULTS INR 1.20 0.90 - 1.20 HISTORIC AL RESULTS Comment: Interpretive Data Inpatient therapeutic ranges* Atrial fibrillation ?2.0-3.0 INR Venous thrombo-embolism ?2.0-3.0 INR Bioprosthetic heart valve ?* Mechanical heart valve, bileaflet or tilting disk,aortic position ? 2.0-3.0 INR All other,or bileaflet or tilting disk, in mitral position ? 2.5-3.5 INR *See the pharmacy resource directory (PHRED) for an updated copy of the Tool Book at http://[facility]/pharmacy.nsf Current Interpretive Data was last revised 2011. Plasma 09/27/2015 3:10 AM CDT Jessica Gleason MD LAB BLOOD ORDERABLES Final Result Performing Organization Address [facility] de Phone Number HISTORICAL RESULTS * (ABNORMAL) Blood cell count [CBC] express (09/27/2015 3:10 AM CDT) WBC 3.4(L) 3.8 - 9.9 K/cumm HISTORICAL RESULTS RBC 4.29(L) 4.30 - 5.80 M/cumm HISTORICAL RESULTS Hgb 11.5(L) 13.0 - 17.5 g/dl HISTORICAL RESULTS Hct 35.8(L) 38.9 - 50.3 % HISTORICAL RESULTS MCV 83.4 81.3 - 96.4 fl HISTORICAL RESULTS MCH 26.8(L) 27.1 - 33.3 pg HISTORICAL RESULTS MCHC 32.1(L) 32.3 - 35.7 g/dl HISTORICAL RESULTS Rdw 14.4 11.1 - 14.9 % HISTORICAL RESULTS RDW 43.7 35.7 - 48.1 fl HISTORICAL RESULTS NRBC 0.0 0.0 - 0.2 % HISTORIC AL RESULTS NRBC, abs 0.00 0.00 - 0.01 K/cumm HISTORICAL RESULTS Platelets 74(L) 150 - 400 K/cumm HISTORICAL RESULTS MPV 12.1 9.1 - 12.3 fl HISTORICAL RESULTS Blood specimen (specimen) 09/27/2015 3:10 AM CDT Result [facility] Jessica Gleason MD LAB BLOOD ORDERABLES Final Result Performing Organization Address [facility] de Phone Number HISTORICAL RESULTS * Blood glucose, POC (09/27/2015 2:10 AM CDT) Glucose, POC, bld 140 70 - 199 mg/dl HISTORICAL RESULTS Blood specimen (specimen) 09/27/2015 2:10 AM CDT Result [facility] Jessica Gleason MD LAB BLOOD ORDERABLES Final Result Performing Organization Address [facility] de Phone Number HISTORICAL RESULTS * UPPER GASTROINTESTINAL ENDOSCOPY REPORT (09/27/2015) Anatomical Region Laterality Modality Other Narrative 09/27/2015 Ordered by an unspecified provider. Result [facility] Provider GI PROCEDURE ORDERABLES F inal Result * Blood glucose, POC (09/26/2015 11:03 PM CDT) Glucose, POC, bld 107 70 - 199 mg/dl HISTORICAL RESULTS Blood specimen (specimen) 09/26/2015 11:03 PM CDT Jessica Gleason MD LAB BLOOD ORDERABLES Final Result Performing Organization Address [facility] Co de Phone Number HISTORICAL RESULTS * Blood check sample (09/26/2015 8:15 PM CDT) Pathologist [facility] ABO, Rho(D) A Positive HISTORI AGUILA RESULTS Blood specimen (specimen) 09/26/2015 8:15 PM CDT Historical Provider LAB BLOOD ORDERABLES Anastasiya l Result Performing Organization Address [facility] de Phone Number HISTORICAL RESULTS * (ABNORMAL) Plasma hepatic function panel (09/26/2015 3:22 PM CDT) [facility] Protein, pl 8.3 6.5 - 8.5 g/dl HISTORICAL RESULTS Alb 4.4 3.5 - 5.0 g/dl HISTORICAL RESULTS Bilirubin 1.0 0.1 - 1.2 mg/dl HISTORICAL RESULTS Bilirubin, direct <0.2 0.1 - 0.3 mg/dl HISTORICAL RESULTS Alk phos 90 40 - 130 Units/L HISTORICAL RESULTS AST 56(H) 10 - 50 Units/L HISTORICAL RESULTS ALT 49 7 - 55 Units/L HISTORICAL RESULTS Plasma 09/26/2015 3:22 PM CDT Mario Ren MD LAB BLOOD ORDERABLES Final Res ult Performing Organization Address [facility] de Phone Number HISTORICAL RESULTS * (ABNORMAL) Plasma basic metabolic panel (09/26/2015 3:22 PM CDT) Pathologist [facility] Sodium 142 135 - 145 mmol/L HISTORICAL RESULTS K, pl 4.3 3.3 - 4.9 mmol/L HISTORICAL RESULTS Chloride 106 97 - 110 mmol/L HISTORICAL RESULTS CO2 24 22 - 32 mmol/L HISTORICAL RESULTS A. gap 12 2 - 15 mmol/L HISTORICAL RESULTS Glucose 203(H) 70 - 199 mg/dl HISTORICAL RESULTS BUN 14 8 - 25 mg/dl HISTORICAL RESULTS Creatinine 0.95 0.80 - 1.30 mg/dl HISTORICAL RESULTS Calcium 9.5 8.5 - 10.3 mg/dl HISTORICAL RESULTS Plasma 09/26/2015 3:22 PM CDT Mario Ren MD LAB BLOOD ORDERABLES Final Res ult Performing Organization Address [facility] de Phone Number HISTORICAL RESULTS * Serum lipase (09/26/2015 3:22 PM CDT) Lip 37 10 - 99 Units/L HISTORICAL RESULTS Serum 09/26/2015 3:22 PM CDT Mario Ren MD LAB BLOOD ORDERABLES Final Res ult Performing Organization Address [facility] Phone Number HISTORICAL RESULTS * (ABNORMAL) Blood cell count (CBC) (09/26/2015 3:22 PM CDT) MCH 26.1(L) 27.1 - 33.3 pg HISTORICAL RESULTS WBC 4.6 3.8 - 9.9 K/cumm HISTORICAL RESULTS MCHC 31.8(L) 32.3 - 35.7 g/dl HISTORICAL RESULTS RBC 4.71 4.30 - 5.80 M/cumm HISTORICAL RESULTS Rdw 14.3 11.1 - 14.9 % HISTORICAL RESULTS Hgb 12.3(L) 13.0 - 17.5 g/dl HISTORICAL RESULTS RDW 42.1 35.7 - 48.1 fl HISTORICAL RESULTS Hct 38.7(L) 38.9 - 50.3 % HISTORICAL RESULTS Platelets 83(L) 150 - 400 K/cumm HISTORICAL RESULTS MCV 82.2 81.3 - 96.4 fl HISTORICAL RESULTS MPV 11.4 9.1 - 12.3 fl HISTORICAL RESULTS NRBC 0.0 0.0 - 0.2 % HISTORIC AL RESULTS NRBC, abs 0.00 0.00 - 0.01 K/cumm HISTORICAL RESULTS Blood specimen (specimen) 09/26/2015 3:22 PM CDT Mario Ren MD LAB BLOOD ORDERABLES Final Res ult Performing Organization Address [facility]/ZIP Co de Phone Number HISTORICAL RESULTS * Blood ABO, Rh, indirect ab screen (09/26/2015 3:22 PM CDT) ABO, Rho(D) A Positive HISTORI AGUILA RESULTS Steve, indirect Negative HISTORICAL RESULTS Blood specimen (specimen) 09/26/2015 3:22 PM CDT Mario Ren MD LAB BLOOD ORDERABLES Final Res ult HISTORICAL RESULTS * (ABNORMAL) Blood cell morphologic exam (09/26/2015 3:22 PM CDT) Neutrophils 72.5 % HISTORIC AL RESULTS Immature granulocytes 0.4 % HISTORICAL RESULTS Lymphocytes 15.3 % HISTORIC AL RESULTS Monos 8.4 % HISTORICAL RESULTS Eosinophils 3.0 % HISTORIC AL RESULTS Basophils 0.4 % HISTORICAL RESULTS Neutrophils, abs 3.4 1.7 - 6.5 K/cumm HISTORICAL RESULTS Immature granulocyte, abs 0.0 0.0 - 0.1 K/cumm HISTORICAL RESULTS Lymphocytes, abs 0.7(L) 0.8 - 3.3 K/cumm HISTORICAL RESULTS Monocytes, absolute 0.4 0.2 - 0.8 K/cumm HISTORICAL RESULTS Eosinophils, abs 0.1 0.0 - 0.5 K/cumm HISTORICAL RESULTS Basophils, abs 0.0 0.0 - 0.1 K/cumm HISTORICAL RESULTS Blood specimen (specimen) 09/26/2015 3:22 PM CDT Mario Ren MD LAB BLOOD ORDERABLES Final Res ult HISTORICAL RESULTS * Blood glucose, POC (09/26/2015 1:09 PM CDT) Glucose, POC, bld 164 70 - 199 mg/dl HISTORICAL RESULTS Blood specimen (specimen) 09/26/2015 1:09 PM CDT Historical Provider LAB BLOOD ORDERABLES Anastasiya l Result HISTORICAL RESULTS documented in this encounter Visit Diagnoses Diagnosis Secondary esophageal varices without bleeding (CMS/HCC) (HCC) Portal hypertension (CMS/HCC) (HCC) Portal hypertension Other diseases of stomach and duodenum Polyp of stomach and duodenum Anxiety disorder Anxiety state, unspecified Nonalcoholic steatohepatitis (BLAND) Bipolar disorder (HCC) Bipolar disorder, unspecified Type 2 diabetes mellitus without complications (CMS/HCC) (HCC) Sleep apnea Unspecified sleep apnea Acute cholecystitis Personal history of nicotine dependence [facility] current use of opiate analgesic Other center specialists (current) drug therapy documented in this encounter
--- OUTSIDE RECORDS SUMMARY | 2024-04-19 23:10 | XMS_ITS | Encounter Summary ---
Author Organization [facility] Facility Care Team Providers Care Metal Burnisher Name Role Phone Unavailable Primary Care Provider Unavailabl e Encounter Details Date Type Department Care Team (Late st Contact Info) Description 12/24/2015 9:00 AM CDT - 12/24/2015 11:59 PM CDT Hospital Encounter [facility] Kathryn Yang MD [address] [address] Social History Tobacco Use Types Packs/Day Years Used Date Smoking Tobacco: Never Assessed Sex and Gender Information Value Date Recorded Sex Assigned at Not on file Legal Sex Male 2:52 PM SALES REPRESENTATIVES Gender Identity Male 10/29/2020 12:37 PM CDT [...]
--- OUTSIDE RECORDS SUMMARY | 2024-04-19 23:10 | XMS_ITS | Encounter Summary ---
Author Organization [facility] Facility Care Team Providers Care Clerical And Administrative Workers Name Role Phone Unavailable Primary Care Provider Unavailabl e Encounter Details Date Type Department Care Team (Late st Contact Info) Description 09/27/2015 - 09/27/2015 11:59 PM CDT Hospital Encounter [facility] Kathryn Yang MD [address] [address] Social History Tobacco Use Types Packs/Day Years Used Date Smoking Tobacco: Never Assessed Sex and Gender Information Value Date Recorded Sex Assigned at Not on file Legal Sex Male 2:52 PM CREDIT ANALYST Gender Identity Male 10/29/2020 12:37 PM [...]
--- OUTSIDE RECORDS SUMMARY | 2024-04-19 23:10 | XMS_ITS | Encounter Summary ---
Author Organization [facility] Healthcare Address [address] [place] [address] Care Team Providers Care Skin Care Technician Name Role Phone Unavailable Primary Care Provider Unavailabl e Encounter Details Date Type Department Care Team (Late st Contact Info) Description 01/01/2015 9:11 AM CDT - 01/01/2015 11:59 PM CDT Hospital Encounter [facility] Sean Garcia MD [address] [address] Spinal stenosis of lumbar region without neurogenic claudication; Degeneration of lumbar or lumbosacral intervertebral disc Social History Tobacco Use Types Packs/Day Years Used Date Smoking Tobacco: Never Assessed Sex and Gender Information Value Date Recorded Sex Assigned at Not on file Legal Sex Male 2:52 PM CLIENT COORDINATOR Gender Identity Male 10/29/2020 12:37 PM CDT Sexual Orientation Straight 10/29/2020 12 :37 PM CDT documented as of this encounter Plan of Treatment Not on file documented as of this encounter Procedures Procedure Name Priority Date/Time Associated Diagnosis Comments MRI LUMBAR SPINE WO CONTRAST Routine 01/01/2015 9:49 AM CDT documented in this encounter Results * MRI Lumbar Spine WO Contrast (01/01/2015 9:49 AM CDT) Anatomical Region Laterality Modality Spine N/A Magnetic Resonan ce 01/01/2015 9:49 AM CDT Narrative 01/01/2015 10:56 AM CDT MRI Lumbar Spine WO ??Acc#: ??[id number] DATE OF EXAM: ??Jan 01 2015 CLINICAL HISTORY: Lumbar stenosis. ??Patient fell down stairs three to four years ago. RESULT: TECHNIQUE: Sagittal T1 and T2; axial T1 and T2. FINDINGS: No prior studies are presently available for comparison. ??No fracture, subluxation or wedge compression deformity is seen. ??The vertebral body heights and bony alignment are normal. ??Mild disc desiccation is noted at L4-L5. ??The conus with normal size and signal intensity ends at the level of the T12-L1 interspace. ??A 1.6 cm left renal cyst is noted. SEGMENTAL ANALYSIS: At L1-L2 and L2-L3, no central canal or neural foraminal narrowing is noted. At L3-L4, a disc bulge flattens the thecal sac. ??Facet arthropathy is noted. ??The bilateral neural foramen, right greater than left are narrowed. At L4-L5, a central disc bulge indents the thecal sac. ??Facet arthropathy is noted. ??The bilateral neural foramen are narrowed. ??No central canal narrowing is seen. At L5-S1, a central disc bulge indents the thecal sac. ??No significant central canal or neural foraminal narrowing is noted. IMPRESSION: 1. NO CENTRAL CANAL NARROWING. 2. NEURAL FORAMINAL NARROWING NOTED BILATERALLY AT L3-L4 AND L4-L5 SECONDARY TO FACET ARTHROPATHY AND SMALL DISC BULGES. 3. MILD DEGENERATIVE DISC DISEASE AT L4-L5. Interpreting Physician: ??CHATO SEARS M.D. ??Read on: ??Jan 01 2015 10:03A Transcribed by: ??christina ??On: Jan 01 2015 10:44A Approved Electronically by: ??CHATO SEARS M.D. ??on: ??Jan 01 2015 10:56A Attending: ??NO, NAME Requesting: ??SEAN MONTES Requesting Fax: ??-- Attending Fax: ??-- Attending ID: ??[id number] Requesting ID: ??[id number] Report To 1 ID: ??[id number] Report To 1 Name: ??SEAN MONTES Report To 1 FAX: ??-- NextGen Order #: Procedure Note Provider, MD Tyler - 08/24/2016 MRI Lumbar Spine WO Acc#: [id number] DATE OF EXAM: Jan 01 2015 CLINICAL HISTORY: Lumbar stenosis. Patient fell down stairs three to four years ago. RESULT: TECHNIQUE: Sagittal T1 and T2; axial T1 and T2. FINDINGS: No prior studies are presently available for comparison. No fracture,subluxation or wedge compression deformity is seen. The vertebral bodyheights and bony alignment are normal. Mild disc desiccation is noted atL4-L5. The conus with normal size and signal intensity ends at the levelof the T12-L1 interspace. A 1.6 cm left renal cyst is noted. SEGMENTAL ANALYSIS: At L1-L2 and L2-L3, no central canal or neural foraminal narrowing isnoted. At L3-L4, a disc bulge flattens the thecal sac. Facet arthropathyis noted. The bilateral neural foramen, right greater than left arenarrowed. At L4-L5, a central disc bulge indents the thecal sac. Facetarthropathy is noted. The bilateral neural foramen are narrowed. Nocentral canal narrowing is seen. At L5-S1, a central disc bulge indentsthe thecal sac. No significant central canal or neural foraminalnarrowing is noted. IMPRESSION: 1. NO CENTRAL CANAL NARROWING. 2. NEURAL FORAMINAL NARROWING NOTED BILATERALLY AT L3-L4 AND L4-[id number] TO FACET ARTHROPATHY AND SMALL DISC BULGES. 3. MILD DEGENERATIVE DISC DISEASE AT L4-L5. Interpreting Physician: CHATO SEARS M.D. Read on: Jan 01 201510:03A Transcribed by: christina On: Jan 01 2015 10:44A Approved Electronically by: CHATO SEARS M.D. on: Jan 01 201510:56A Attending: NO, NAME Requesting: SEAN MONTES Requesting Fax: -- Attending Fax: -- Attending ID: [id number] Requesting ID: [id number] Report To 1 ID: [id number] Report To 1 Name: SEAN MONTES Report To 1 FAX: -- NextGen Order #: us Historical Provider MD PATEL MRI PROCEDURES Final Result documented in this encounter Visit Diagnoses Diagnosis Spinal stenosis of lumbar region without neurogenic claudication Degeneration of lumbar or lumbosacral intervertebral disc documented in this encounter
--- OUTSIDE RECORDS SUMMARY | 2024-04-19 23:10 | XMS_ITS | Encounter Summary ---
Author Organization [facility] Facility Care Team Providers Care Rpg Programmer Name Role Phone Unavailable Primary Care Provider Unavailabl e Encounter Details Date Type Department Care Team (Late st Contact Info) Description 02/15/2016 8:45 AM CDT - 02/15/2016 11:59 PM CDT Hospital Encounter [facility] Nilton Boone MD [address] [facility] [address] [place] [address] Social History Tobacco Use Types Packs/Day Years Used Date Smoking Tobacco: Never Assessed Sex and Gender Information Value Date Recorded Sex Assigned at Not on file Legal Sex Male 2:52 PM CPHT Gender Identity Male 10/29/2020 12:37 PM CDT [...]
--- OUTSIDE RECORDS SUMMARY | 2024-04-19 23:10 | XMS_ITS | Encounter Summary ---
Author Organization [facility] Facility Care Team Providers Care Procedure Tech Name Role Phone Unavailable Primary Care Provider Unavailabl e Encounter Details Date Type Department Care Team (Late st Contact Info) Description 11/21/2015 8:30 AM CDT - 11/21/2015 11:59 PM CDT Hospital Encounter [facility] Joel De La Cruz MD [address] [place] [address] Social History Tobacco Use Types Packs/Day Years Used Date Smoking Tobacco: Never Assessed Sex and Gender Information Value Date Recorded Sex Assigned at Not on file Legal Sex Male 2:[address] APPRAISER Gender Identity Male 10/29/2020 12:37 PM CDT Sexual Orientation Straight 10/29/2020 12 :37 PM CDT documented as of this encounter Last Filed Vital Signs Vital Sign Reading Time Taken Comments Blood Pressure - - Pulse - - Temperature - - Respiratory Rate - - Oxygen Saturation - - Inhaled Oxygen Concentration - - Weight - - Height 172.7 cm (5' 8 ) 08/23/2015 5:57 AM CDT Body Mass Index - - documented in [...] Associated Diagnosis Comments BLOOD GLUCOSE, POC Routine 11/22/2015 10 :56 AM CDT documented in this encounter Results * Blood glucose, POC (11/22/2015 10:56 AM CDT) Glucose, POC, bld See Comment 70 - 199 mg/dl CDR HISTORICAL RESULTS Comment:{Credited, interface order error} Blood specimen (specimen) 11/22/2015 10:56 AM CDT us Joel Chisholm MD LAB BLOOD ORDERABLES Anastasiya enciso Result CDR HISTORICAL RESULTS documented in this encounter Visit Diagnoses Not on filedocumented in this encounter
--- OUTSIDE RECORDS SUMMARY | 2024-04-19 23:15 | XMS_ITS | Continuity of Care Document ---
Author Organization [facility] Address [address] [facility] [place] [address] Phone Care Team Providers Care Rough And Truing Machine Operator Name Role Phone Roosevelt Mcgee MD Unavailable Unavailable Allergies, Adverse Reactions, Alerts Substance Reaction Status Criticality CIPROFLOXACIN HCL Active No Informa tion ciprofloxacin Active No Information erythromycin base Active No Informa tion Sulfa (Sulfonamide Antibiotics) Active No Information PENICILLIN Active No Information Medications Medication Instructions Dosage Effective Dates (start - stop) Status Comments Tunica 10 mg-325 mg tablet take 1 tablet [...] Copied on Encounter OFFICE/OUTPA TIENT VISIT, EST [facility], [address] [place], [address], [place] tel:[phone] [facility] anxiety1 (chief complaint) DM (chief complaint) liver cirrhosis (chief complaint) GERD1 (chief complaint) chronic pain (chief complaint) Type 2 diabetes mellitus without complicationsGenera lized Anxiety DisorderOther cirrhosis of liverChronic pain syndrome 2-[address]. [address] [place], [address]. tel:[phone] Referring Provider: Tom Gaines [address], [place], [address]. tel:[phone] Family History Family Member Type Diagnosis Age At Onset Mother Problem (finding) of ovarian CA Mother Problem (finding) Sister Problem (finding) Alive and well Father Problem (finding) Sister Problem (finding) Diabetes mellitus type 2 Father Problem (finding) esophageal CA Payers Payer name Insurance type Covered republican ID Authoriza tion(s) No Information Social History [...] takes lantus, tradejnta, humalog. His BG is [id number]. Pt sees endo for his DM. Pt [...] thought DM Pt has DM. Pt ta abilio walker, tradejntdaniela, humalog. His BG is around 250s. Pt [...] of liver 2016 assessment Chronic pain syndrome Mental Status Date Cognitive Assessment Orientation - Uneeda ed to time, place, person, situation.
== END 2024-04-16 08:21 | disposition home or self-care (01) ==
PROVIDERS: PCP Physician Assistant; Visit Provider Physician Assistant
DX: M54.16 Radiculopathy, lumbar region (principal); M43.06 Spondylolysis, lumbar region
CPT/HCPCS: 72148

== ENCOUNTER 2024-05-01 09:48 | Emergency (ER) | payer OTHER, SELFPAY ==
[2024-05-01 09:48] VITALS: BP 163/86; PULSE 88; RESP 16; TEMP 36.6; O2SAT 99
--- NOTE | 2024-05-01 09:58 | ED.BACK ---
HPI - Back Pain/Injury General Chief Complaint: Back Pain/Injury Stated Complaint: back pain Time Seen by Provider: 05/01/24 09:58 History of Present Illness HPI Narrative: 53 years old white male known to us with numerous ED visits for the same complaint of lower back pain. History of chronic lower back pain with intermittent flare. Patient was power wash stuff yesterday at home, subsequently started having aggravation of his lower back pain. Patient currently on hydrocodone. Scheduled to be seen by pain management physician in 1 week. Patient denies Patient denies bowel dysfunction, bladder dysfunction, altered sensation, focal weakness, or saddle numbness, Related Data Home Medications ?Medication ?Instructions ?Recorded ?Confirmed ?Last Taken ?Type albuterol sulfate 90 mcg/actuation 2 puff inhalation Q8-10H PRN 02/19/20 03/22/24 Unknown History aerosol inhaler Wheezing alprazolam 1 mg tablet 0.5 mg PO TID PRN Anxiety 09/04/20 03/22/24 Unknown History ondansetron HCl 4 mg tablet 4 mg PO BID PRN Nausea 09/04/20 03/22/24 Unknown History liraglutide 0.6 mg/0.1 mL (18 mg/3 See Rx Instructions .Route .COMPLEX 03/05/21 03/22/24 Unknown History mL) subcutaneous pen injector (Victoza 3-Anatoliy) hydroxyzine HCl 25 mg tablet 25 mg PO QID 06/20/23 03/22/24 Unknown History trazodone 100 mg tablet 100 mg PO BID 06/20/23 03/22/24 Unknown History blood sugar diagnostic (OneTouch 02/23/24 03/22/24 Unknown History Ultra Test strips) blood-glucose sensor (Dexcom G7 02/23/24 03/22/24 Unknown History Sensor device) carvedilol 3.125 mg tablet 3.125 mg PO DAILY 02/23/24 03/22/24 Unknown History dulaglutide 0.75 mg/0.5 mL 0.75 mg subcut DAILY 02/23/24 03/22/24 Unknown History subcutaneous pen injector (Huong) duloxetine 30 mg capsule,delayed 30 mg PO DAILY 02/23/24 03/22/24 Unknown History release famotidine 20 mg tablet 20 mg PO DAILY 02/23/24 03/22/24 Unknown History hydrochlorothiazide 25 mg tablet 25 mg PO DAILY 02/23/24 03/22/24 Unknown History hydrocodone 10 mg-acetaminophen 10 - 325 tablet PO DAILY 02/23/24 03/22/24 Unknown History 325 mg tablet insulin glargine 100 unit/mL (3 100 unit subcut DIRECTED 02/23/24 03/22/24 Unknown History mL) subcutaneous pen (Lantus Solostar U-100 Insulin) insulin lispro 100 unit/mL 100 unit subcut DIRECTED 02/23/24 03/22/24 Unknown History subcutaneous pen (Humalog KwikPen (U-100) Insulin) insulin regular hum U-500 conc 500 500 unit subcut DIRECTED 02/23/24 03/22/24 Unknown History unit/mL(3 mL) subcut pen (Humulin R U-500 (Conc) Insulin Kwikpen) lactulose 10 gram/15 mL oral 10 g PO DAILY 02/23/24 03/22/24 Unknown History solution (Enulose) metformin 500 mg tablet,extended 500 mg PO DAILY 02/23/24 03/22/24 Unknown History release 24 hr pen needle, diabetic 31 gauge x 02/23/24 03/22/24 Unknown History 16 (TRUEplus Pen Needle) pregabalin 200 mg capsule 200 mg PO DAILY 02/23/24 03/22/24 Unknown History Allergies Allergy/AdvReac Type Severity Reaction Status Date / Time aztreonam (Azactam) Allergy Intermediate Unknown Verified 03/22/24 17:12 ciprofloxacin (Cipro) Allergy Intermediate Unknown Verified 03/22/24 17:12 esomeprazole (Nexium) Allergy Intermediate Unknown Verified 03/22/24 17:12 octreotide Allergy Intermediate Unknown Verified 03/22/24 17:12 sulfanilamide Allergy Intermediate Unknown Verified 03/22/24 17:12 erythromycin base Allergy Unknown Unknown Verified 03/22/24 17:12 Penicillins Allergy Unknown Unknown Verified 03/22/24 17:12 Sulfa (Sulfonamide Allergy Unknown Unknown Verified 03/22/24 17:12 Antibiotics) duloxetine Allergy Unknown Verified 03/22/24 17:12 magnesium Allergy Unknown Verified 03/22/24 17:12 nisoldipine Allergy Unknown Verified 03/22/24 17:12 prochlorperazine Allergy Unknown Verified 03/22/24 17:12 IVP dye Allergy Intermediate Unknown Uncoded 03/22/24 17:12 Contrast Media Allergy Unknown Unknown Uncoded 03/22/24 17:12 Review of Systems Review of Systems: All systems reviewed & are unremarkable except as noted in HPI and below PMFSH Past Medical History Medical History Chronic back pain Diabetes mellitus type 2 in obese Hepatic encephalopathy GI bleeding GERD (gastroesophageal reflux disease) Varices, esophageal Liver failure Surgical History Surgical History S/P TIPS (transjugular intrahepatic portosystemic shunt) Social History Social History Smoking status: Former smoker Alcohol intake: never Substance use: never Living arrangements: with family Exam Narrative: General appearance: Well-developed, well-nourished Skin: Normal color Head: Normocephalic, nontraumatic Eyes: Clear conjunctiva ENT: Oropharynx normal, ears normal, nose normal Neck: Supple, nontender Chest and respiratory: Airway patent, no respiratory distress, no accessory muscle use Heart: Regular rate/rhythm Abdomen: Soft, nontender, no organomegaly, quiet bowel sounds Vascular: Normal peripheral pulses, normal capillary refill. Musculoskeletal: severe limited range of motion across the lumbar area severe diffuse tenderness across the lumbar area, no bruises, no swelling no rash Neurologic: Alert and oriented ?3, HEEL SEWER is normal as tested, no gross motor deficit Course Vital Signs Vital signs: Vital Signs Temperature 36.6 C 05/01/24 09:48 Pulse Rate 88 05/01/24 09:48 Respiratory Rate 16 05/01/24 09:48 Blood Pressure 163/86 H 05/01/24 09:48 Pulse Oximetry 99 05/01/24 09:48 Oxygen Delivery Room Air 05/01/24 09:48 Temperature 36.6 C 05/01/24 09:48 Pulse Rate 88 05/01/24 09:48 Respiratory Rate 16 05/01/24 09:48 Blood Pressure 163/86 H 05/01/24 09:48 Pulse Oximetry 99 05/01/24 09:48 Oxygen Delivery Room Air 05/01/24 09:48 Discharge Plan Discharge Clinical Impression: Chronic back pain Patient Disposition: Home, Self-Care Condition: Improved Additional Instructions: Return if symptoms are worsening , call your family physician for appointment, take Tylenol as as needed for aches and pain, continue home medications. Patient Language: Syriac Prescriptions: New cyclobenzaprine 10 mg tablet 10 mg PO TID PRN (Reason: muscle spasm) Qty: 20 0RF No Action albuterol sulfate 90 mcg/actuation HFA aerosol inhaler 2 puff INHALATION Q8-10H PRN (Reason: Wheezing) alprazolam 1 mg tablet 0.5 mg PO TID PRN (Reason: Anxiety) ondansetron HCl 4 mg tablet 4 mg PO BID PRN (Reason: Nausea) liraglutide [Victoza 3-Anatoliy] 0.6 mg/0.1 mL (18 mg/3 mL) pen injector See Rx Instructions .ROUTE .COMPLEX Rx Instructions: . Lagevrio (EUA) 200 mg capsule 800 mg PO Q12H 5 Days Qty: 40 0RF trazodone 100 mg tablet 100 mg PO BID hydroxyzine HCl 25 mg tablet 25 mg PO QID naproxen 500 mg tablet 500 mg PO BID PRN (Reason: pain) Qty: 14 0RF Rx Instructions: take with meals methocarbamol 750 mg tablet 1,500 mg PO TID Qty: 45 0RF triamcinolone acetonide 0.1 % ointment 1 applic topical TID 7 Days Qty: 15 0RF (DME) OneTouch Ultra Test Strip MISCELLANEOUS hydrocodone-acetaminophen 10-325 mg tablet 10 - 325 tablet PO DAILY carvedilol 3.125 mg tablet 3.125 mg PO DAILY famotidine 20 mg tablet 20 mg PO DAILY hydrochlorothiazide 25 mg tablet 25 mg PO DAILY metformin 500 mg tablet extended release 24 hr 500 mg PO DAILY insulin lispro [Humalog KwikPen Insulin] 100 unit/mL insulin pen 100 unit SUBCUT DIRECTED (DME) pen needle, diabetic [TRUEplus Pen Needle] 31 gauge x 5/16 needle MISCELLANEOUS duloxetine 30 mg capsule,delayed release(DR/EC) 30 mg PO DAILY lactulose [Enulose] 10 gram/15 mL solution 10 g PO DAILY pregabalin 200 mg capsule 200 mg PO DAILY insulin glargine [Lantus Solostar U-100 Insulin] 100 unit/mL (3 mL) insulin pen 100 unit SUBCUT DIRECTED (DME) Virtual Computer G7 Sensor Device MISCELLANEOUS Trulicity 0.75 mg/0.5 mL pen injector 0.75 mg SUBCUT DAILY Humulin R U-500 (Conc) Kwikpen 500 unit/mL (3 mL) insulin pen 500 unit SUBCUT DIRECTED cyclobenzaprine 10 mg tablet 10 mg PO TID PRN (Reason: muscle spasm) Qty: 20 0RF omeprazole 20 mg capsule,delayed release(DR/EC) 20 mg PO BID Qty: 60 0RF Follow-up/Referrals: Librado,SONALI Huizar [Primary Care Provider] -
[2024-05-01] MEDS: IBUPROFEN 400 MG TABLET 800 MG PO (10:07)
[2024-05-01] MEDS: HYDROmorphone HCL INJ (*CRX) 2 MG/ML VIAL 1 MG IM (10:08)
[2024-05-01] MEDS: ONDANSETRON HCL ODT 4 MG TABLET PO (10:08)
--- OUTSIDE RECORDS SUMMARY | 2024-05-08 05:45 | XMS_ITS | Encounter Summary ---
Author Organization [facility] Address [facility] [place] [address] Care Team Providers Care Equine Intern Name Role Phone Braydon Pavon Primary Care Provider [phone] Encounter Details Date Type Department Care Team [...] Anesthesia Event [facility] MRI [address] [place] [phone] Pushpa Frey DO [address] [facility] [address] [phone] 05/20/2024 12:30 PM ENTRY LEVEL MANAGEMENT Appointment [facility] MRI [address] [place] [phone] Steve Bedolla MD [address] [place] [phone] documented as of this encounter Goals Goal [...] on filedocumented in this encounter Care Teams Equine Intern Relationship Specialty Start Date End Date Braydon Pavon PA [address] [place] [address] PCP - General Physician Buildings And Grounds Director 07/14/23 documented as of this encounter
--- OUTSIDE RECORDS SUMMARY | 2024-05-08 05:45 | XMS_ITS | Encounter Summary ---
Author Organization [facility] Address [facility] [place] [address] Care Team Providers Care Polyethylene Combiner Name Role Phone Nikolay Lancaster MD Primary Care Provider [phone] Reason for Visit * Reason Comments Establish Care Pain with urination Encounter Details Date Type Department Care Team (Late st Contact Info) Description 10/04/2018 1:00 PM CDT Office Visit [facility] [address] [place] [address] Trice Blankenship, ACCOUNT SERVICES REPRESENTATIVE-BACK SEAM STITCHER [address] [place] [address] Dysuria (Primary Dx); Nocturia; Lower [...] Patient Instructions * Patient Instructions* Trice Blankenship APRN-BACK SEAM STITCHER - 10/04/2018 1:58 PM CDT Seek medical [...] specialist, such as a urologist or a rivers and lakes leverman. You may need medicines tohelp treat a [...] refuse treatment. The above information is an dietary aide cook only. It is not intended as medical advice for individual conditions or treatments. Talk to your doctor, nurse or pharmacist before following any medical regimen to see if it is safe and effective for you. ?? Copyright [employer] 2019 Information is for End User's use only and may not be sold, redistributed or otherwise used for commercial purposes. All illustrations and images included in CareNotes?? are the copyrighted property of [employer] or [employer] Polyuria WHAT YOU NEED TO KNOW: What [...] refuse treatment. The above information is an dietary aide cook only. It is not intended as medical advice for individual conditions or treatments. Talk to your doctor, nurse or pharmacist before following any medical regimen to see if it is safe and effective for you. ?? Copyright [employer] 2019 Information is for End User's use only and may not be sold, redistributed or otherwise used for commercial purposes. All illustrations and images included in CareNotes?? are the copyrighted property of [employer] or [employer] documented in this encounter Progress Notes * Trice Blankenship APRN-CNP - 10/04/2018 2:19 PM CDT [facility] Division of Urologic Surgery BRADLEY Haney Date of Visit: 10/04/2018 Patient Name: Camilo Curry : 1970 Medical Record: [id number] Contact (home) Age: [age] year old Sex: male Referring Physician: Nikolay Lancaster MD [address] [place] [address] Chief Complaint: Chief Complaint Patient presents with [...] ??? ondansetron (ZOFRAN) 4 MG tablet ??? iConTextUCH ULTRA TEST STRIPS test strip Use 1 [...] POCT neg Ketones UA POCT trace Specific [place] UA 1.020 Blood Urine POCT neg pH [...] Description 02/17/2024 11:59 PM CDT Anesthesia Event [facility] MRI [address] [place] [phone] Pushpa Frey DO [address] [facility] [address] [phone] 05/20/2024 12:30 PM AIRFREIGHT LOADING SUPERVISOR Appointment [facility] MRI [address] [place] [phone] Steve Bedolla MD [address] [place] [phone] Scheduled Orders Name Type Priority Associated Diagnoses [...] POCT neg Ketones UA POCT trace Specific [place] UA 1.020 Blood Urine POCT neg pH UA 6.0 Protein UA neg Urobilinogen UA 1 Nitrite UA neg WBC UA neg Urine URINE / Unknown 10/04/2018 1 :23 PM CDT Trice Blankenship ACCOUNT SERVICES REPRESENTATIVE-BACK SEAM STITCHER LAB - POINT OF C ARE ORDERABLES documented in this encounter Visit Diagnoses Diagnosis Dysuria- Primary Nocturia Lower urinary tract symptoms (LUTS) Other symptoms involving urinary system documented in this encounter Care Teams Polyethylene Combiner Relationship Specialty Start Date End Date Nikolay Lancaster MD [address] [place] [address] PCP - General 10/04/18 07/13/23 documented as of this encounter
--- OUTSIDE RECORDS SUMMARY | 2024-05-08 05:45 | XMS_ITS | Encounter Summary ---
Author Organization [facility] Address [address] [place], [place] [address] [address] Care Team Providers Care Account Service Representative Name Role Phone Braydon Pavon Primary Care Provider [phone] Reason for Visit * Reason Onset Date Comments Follow-up 11/19/2023 Encounter Details Date Type Department Care Team (Late Contact Info) Description 11/19/2023 Telephone [facility] - [address], [facility] [place] [address] Steve Bedolla MD [address] [place] [phone] Follow-up Social History Tobacco Use Types [...] CE Patient needs to be contacted at [phone] documented in this encounter Plan of Treatment Upcoming Encounters Date Type Department Care Team (Late Contact Info) Description 02/17/2024 11:59 PM CDT Anesthesia Event [facility] MRI [address] [place] [phone] Pushpa Frey DO [address] [phone] 05/20/2024 12:30 PM PHYSICAL THERAPIST AIDE Appointment [facility] MRI [address] [place] [phone] Steve Bedolla MD [address] [place] [phone] documented as of this encounter Goals Goal [...] on filedocumented in this encounter Care Teams Account Service Representative Relationship Specialty Start Date End Date Braydon Pavon PA [address] [place] [address] PCP - General Physician Electronic Publications Specialist 07/14/23 documented as of this encounter
--- OUTSIDE RECORDS SUMMARY | 2024-05-08 05:45 | XMS_ITS | Encounter Summary ---
Author Organization [facility] Address [facility] [place] [address] Care Team Providers Care Band Maker Name Role Phone Braydon Pavon Primary Care Provider [phone] Encounter Details Date Type Department Care Team (Late st Contact Info) Description 06/07/2018 Orders Only [facility] Endocrinology, Diabetes and Metabolism [address] [place] [address] Mary Grace Paredes LPN Social History Tobacco [...] CDT Anesthesia Event [facility] [address] [place] [phone] Pushpa Frey DO [address] [facility] OF [address] [phone] 05/20/2024 12:30 PM FINANCIAL SERVICES REP Appointment [facility] MRI [address] [place] [phone] Steve Bedolla MD [address] [place] [phone] documented as of this encounter Visit Diagnoses Not on filedocumented in this encounter Care Teams Band Maker Relationship Specialty Start Date End Date Braydon Pavon PA [address] [place] [address] PCP - General Physician Publications Inspector 05/19/18 10/03/18 documented as of this encounter
--- OUTSIDE RECORDS SUMMARY | 2024-05-08 05:45 | XMS_ITS | Encounter Summary ---
Author Organization [facility] Address [address] [facility] [place] [address] Care Team Providers Care Guest Experience Representative Name Role Phone Braydon Pavon Primary Care Provider [phone] Encounter Details Date Type Department Care Team (Late Contact Info) Description 09/09/2018 Orders Only [facility] Endocrinology, Diabetes and Metabolism [address] [place] [address] Edmond Choi MD [address] [address] Social History Tobacco Use Types Packs/Day Years [...] Description 02/17/2024 11:59 PM CDT Anesthesia Event [facility] MRI [address] [place] [phone] Pushpa Frey DO [address] [facility] [address] [phone] 05/20/2024 12:30 PM CHEESE FACTORY WORKER Appointment [facility] MRI [address] [place] [phone] Steve Bedolla MD [address] [place] [address] documented as of this encounter Visit Diagnoses Not on filedocumented in this encounter Care Teams Guest Experience Representative Relationship Specialty Start Date End Date Braydon Pavon PA [address] [place] [address] PCP - General Physician Developer Programmer Analyst 05/19/18 10/03/18 documented as of this encounter
--- OUTSIDE RECORDS SUMMARY | 2024-05-08 05:45 | XMS_ITS | Referral Summary ---
Author Organization [facility] Address [address] [place] [address] Care Team Providers Care Functional Manager Name Role Phone Braydon Pavon Primary Care Provider [phone] Source Comments [facility],non-owned Affiliates and Associated Physician Practices is amultiple site organization consisting of ambulatory clinics and hospital sitesin [place] and [place]. This disclosure is being madepursuant to the Care Everywhere program and may not contain all information available regarding this patient. Last updated 18.[facility] Encounters Date Type Department Care Team Description 02/16/2024 Travel 02/12/2024 1:52 PM CDT Anesthesia Event [facility] ENDOSCOPY [address] [place] [address] Papo Gamble MD Aranake-Chrisin ger, Amrita, MD 02/12/2024 Travel 02/12/2024 4:00 PM CDT - 02/12/2024 4:30 PM CDT Surgery [facility] ENDOSCOPY [address] [place] [address] Gaby Mistry MD EGD w/ bill 02/12/2024 11:04 AM CDT - 02/12/2024 2:45 PM CDT Hospital Encounter [facility] TORIBIO OP [address] [place] [address] Steve Bedolla MD Surgery General Discharge Disposition: Home or Self Care from Last 3 Months Allergies Active [...] as needed for Anxiety Active pen needles 09/16 31G X 8 MM [...] 11:59 PM CDT Anesthesia Event [facility] MRI [address] [place] [phone] Pushpa Frey, DO [address] [facility] DEPT OF [address] [address] 05/20/2024 12:30 PM MILLING OPERATOR Appointment [facility] MRI [address] [place] [address] Steve Bedolla MD [address] [place] [address] Goals Goal Patient Goal Type Associated [...] Procedure Name Priority Date/Time Associated Diagnosis Comments CA ED EGD FLEX TRANSORAL DX 02/12/2024 1:47 PM CDT Cirrhosis of liver without ascites, unspecified hepatic cirrhosis type (HCC) Special Needs Message Received: Yesterday Steve Bedolla MD P [facility] Schedulers - Endoscopy Pool Please set up [...] Procedure Code(s): ? --- Professional --- ? 45562, Esophagogastroduo denoscopy, flexible, transoral; diagnostic, ? including collection of specimen(s) by brushing or washing, when ? performed (separate procedure) Diagnosis Code(s): ?--- Professional --- ?I85.00, Esophageal varices without bleeding ?K22.89, Other specified disease of esophagus ?K76.6, Portal hypertension ?K31.89, Other diseases of stomach and duodenum ?K31.7, Polyp of stomach and duodenum CPT copyright 2021 [employer]. All rights reserved. The codes documented in this report are preliminary and upon dye colorist formulator review may be revised to meet current compliance requirements. Gaby Mistry MD 02/12/2024 2:13:14 PM This report has been signed electronically. Note Initiated On: 02/12/2024 1:40 PM Number of Addenda: 0 ? [facility] ? [address] [place] [address] [facility] 02/12/2024 1:40 PM CDT Gaby Mistry MD GI PROCEDURE ORDERAB LES Performing Organization Address City/[facility]/ZIP Co de Phone Number [facility] * (ABNORMAL) GLUCOSE - POINT OF CARE (02/12/2024 1:17 PM CDT) Only the most recent of2 resultswithin the time period is included. Pathologist [facility] Glucose WB/POC 277(H) 70 - 115 mg/dL 02/12/2024 1:18 PM CDT [facility] Specimen Type Cap Fingerstick 2023 1:18 PM CDT [facility] Blood BLOOD SPECIMEN / Unknown 02/12/2024 1:17 PM CDT 02/12/2024 1:18 PM CDT Steve Bedolla MD LAB - POINT OF CARE ORDERABLES Performing Organization Address [facility]/ZIP Co de Phone Number [facility] [address] [place] [address], [place] [phone] * (ABNORMAL) COMPREHENSIVE METABOLIC PANEL (12/29/2023 1:12 PM CDT) Pathologist [facility] BUN 13 7 - 26 mg/dL 12/29/2023 2:07 PM CDT [facility] Creatinine 0.73 0.71 - 1.16 mg/dL 12/29/2023 2:07 PM [facility] Sodium 138 136 - 145 mmol/L 12/29/2023 2:07 PM [facility] Potassium 4.8(H) 3.5 - 4.5 mmol/L 12/29/2023 2:07 PM [facility] Chloride 105 98 - 107 mmol/L 12/29/2023 2:07 PM [facility] CO2 25 22 - 29 mmol/L 12/29/2023 2:07 PM [facility] Glucose 362(H) 70 - 115 mg/dL 12/29/2023 2:07 PM [facility] Calcium 9.8 8.4 - 10.2 mg/dL 12/29/2023 2:07 PM [facility] Protein Total 7.0 6.0 - 8.3 g/dL 12/29/2023 2:07 PM [facility] Albumin 3.7 3.4 - 5.0 g/dL 12/29/2023 2:07 PM [facility] Bilirubin Total 3.2(H) 0.2 - 1.2 mg/dL 12/29/2023 2:07 PM [facility] Alkaline Phosphatase 89 40 - 150 U/L 12/29/2023 2:07 PM [facility] ALT 16 5 - 55 U/L 12/29/2023 2:07 PM [facility] AST 23 5 - 34 U/L 12/29/2023 2:07 PM [facility] Anion Gap 8 6 - 16 12/29/2023 2:07 PM [facility] BUN/Creatinine Ratio 18 7 - 23 12/29/2023 2:07 PM [facility] Osmolality Calculated 301(H) 275 - 295 mOsm/kg 12/29/2023 2:07 PM [facility] Albumin/Globulin Ratio 1.1 1.1 - 2.3 12/29/2023 2:07 PM [facility] eGFR by CKD-EPI >90 >=90 mL/min/1.7 3 m2 12/29/2023 2:07 PM [facility] Blood BLOOD SPECIMEN / Unknown Lab Venipuncture / Unknown 12/29/2023 1:12 PM CDT 12/29/2023 1:37 PM CDT Steve Bedolla MD LAB - CHEMISTRY LIONEL WHITT [facility] LABORATORY [facility] [address] [place] [address], [facility] [phone] * HEMOGLOBIN A1C - POINT OF CARE (AMB) [facility] (05/24/2018) [facility] Hemoglobin A1c POCT 8.2 BLOOD SPECIMEN / Unknown 05/24/2018 Edmond Choi MD LAB - POINT OF CARE ORDERABLES from Last 3 Months or Most Recently Relevant to Health Maintenance Care Teams Functional Manager Relationship Specialty Start Date End Date Braydon Pavon PA [address] [place] [address] PCP - General Physician Employment Supervisor 07/14/23
--- OUTSIDE RECORDS SUMMARY | 2024-05-08 05:45 | XMS_ITS | Encounter Summary ---
Author Organization [facility] Address [address] [place] [address] Care Team Providers Care Software Tester Name Role Phone Nikolay Lancaster MD Primary Care Provider [phone] Encounter Details Date Type Department Care Team (Late Contact Info) Description 07/27/2020 Orders Only [facility] - COVID Vaccine [address] [place] [phone] Neeraj Vyas MD [address] [place] [address] Need for vaccination Social History Tobacco Use [...] Description 02/17/2024 11:59 PM CDT Anesthesia Event [facility] MRI [address] [place] [address] Pushpa Frey DO [address] [facility] [address] [phone] 05/20/2024 12:30 PM QUALITY ASSURANCE MONITOR CHASSIS Appointment [facility] MRI [address] [place] [phone] Steve Bedolla MD [address] [place] [address] documented as of this encounter Visit Diagnoses Diagnosis Need for vaccination Need for prophylactic vaccination and inoculation against unspecified single disease documented in this encounter Care Teams Software Tester Relationship Specialty Start Date End Date Nikolay Lancaster MD [address] [place] [address] PCP - General 10/04/18 07/13/23 documented as of this encounter
--- OUTSIDE RECORDS SUMMARY | 2024-05-08 05:45 | XMS_ITS | Encounter Summary ---
Author Organization [facility] Address [facility] [place] [address] Care Team Providers Care Preschool Head Teacher Name Role Phone Braydon Pavon Primary Care Provider [phone] Reason for Referral * (Routine) - Open Specialty Diagnoses / Procedures Referred By Contac t Referred To Contact Diagnoses Cirrhosis of liver without ascites, unspecified hepatic cirrhosis type (HCC) Procedures [id number]-[id number] BLOOD Steve Bedolla MD [address] [place] [address] Referral ID Status Reason Start Date Expiration Date Visits Re quested Visits Authorized [id number] Open 07/14/2023 07/13/2024 1 1 Reason for Visit * (Routine) - Open Specialty Diagnoses / Procedures Referred By Contwinnie casillas Referred To Contact Diagnoses Cirrhosis of liver without ascites, unspecified hepatic cirrhosis type (HCC) Procedures [id number] BLOOD Steve Bedolla MD [facility] [place] [address] Referral ID Status Reason Start Date Expiration Date Visits Re quested Visits Authorized [id number] Open 07/14/2023 07/13/2024 1 1 Encounter Details Date Type Department Care Team (Latest Contact Info) Description 07/14/2023 4:35 PM CDT - 07/14/2023 11:59 PM CDT Hospital Encounter [facility] OP DRAW STATION [address] [place] [address] Discharge Disposition: Home or Self Care Social [...] Description 02/17/2024 11:59 PM CDT Anesthesia Event [facility] MRI [address] [place] [phone] Pushpa Frey DO [address] [facility] [address] [phone] 05/20/2024 12:30 PM PSYCHOTHERAPIST COUNSELOR Appointment [facility] MRI [address] [place] [phone] Steve Bedolla MD [address] [place] [address] documented as of this encounter [...] Name Priority Date/Time Associated Diagnosis Comments PT-INR [facility] Routine 07/14/2023 4:58 PM CDT Cirrhosis of liver without ascites, unspecified hepatic cirrhosis type (HCC) NILE BLOOD SCREEN W/REFLEX TITER Routine 07/14/2023 4:58 PM CDT Cirrhosis of liver without ascites, unspecified hepatic cirrhosis type (HCC) ALPHA FETOPROTEIN BLOOD TUMOR MARKER Routine 07/14/2023 4:58 PM CDT Cirrhosis of liver without ascites, unspecified hepatic cirrhosis type (HCC) [id number]-[id number] BLOOD Routine 07/14/2023 4:58 PM CDT Cirrhosis [...] (HCC) documented in this encounter Results * IBITX-1-OUEIXUMBODW BLOOD (07/14/2023 4:58 PM CDT) Pctzh-3-Usnzpt ypsin 182 90 - 200 mg/dL 07/14/2023 5:40 PM CDT [facility] Blood BLOOD SPECIMEN / Unknown Lab Venipuncture / Unknown 07/14/2023 4:58 PM CDT 07/14/2023 5:15 PM CDT Steve Bedolla MD LAB - CHEMISTRY ORDE PERI [facility] [address] [place] [address], [facility] [phone] * IRON + TRANSFERRIN PANEL (07/14/2023 4:58 PM CDT) Iron 118 50 - 175 ug/dL 07/14/2023 5:39 PM CDT [facility] Transferrin 309 174 - 382 mg/dL 07/14/2023 5:39 PM CDT [facility] Transferrin Saturation % 31 16 - 50 % 07/14/2023 5:39 PM CDT [facility] TIBC Calculated 386 240 - 450 ug/dL 07/14/2023 5:39 PM CDT [facility] Blood BLOOD SPECIMEN / Unknown Lab Venipuncture / Unknown 07/14/2023 4:58 PM CDT 07/14/2023 5:15 PM CDT Steve Bedolla MD LAB - CHEMISTRY LIONEL WHITT Performing Organization Address City/[facility]/ZIP Co de Phone Number [address] [address], [facility] [phone] * FERRITIN (07/14/2023 4:58 PM CDT) Pathologist [facility] Ferritin 71 22 - 275 ng/mL 07/14/2023 5:58 PM CDT [facility] Blood BLOOD SPECIMEN / Unknown Lab Venipuncture / Unknown 07/14/2023 4:58 PM CDT 07/14/2023 5:15 PM CDT Steve Bedolla MD LAB - CHEMISTRY LIONEL WHITT [address] [address], [place] [phone] * NILE BLOOD SCREEN W/REFLEX TITER (07/14/2023 4:58 PM CDT) Pathologist [facility] NILE IgG None Detected None Detected 07/16/2023 10:11 PM CDT [facility] ([facility]) Comment: If suspicion of connective tissue disease is strong and NILE EIA is negative, consider testing for NILE by IFA ([id number]). INTERPRETIVE INFORMATION: Anti-Nuclear Antibodies (NILE), IgG by RAMOS Antinuclear Antibodies (NILE), IgG by RAMOS: NILE specimens are screened using enzyme-linked immunosorbent assay (RAMOS) methodology. All RAMOS results reported as Detected are further tested by indirect fluorescent assay (IFA) using HEp-2 substrate with an IgG-specific conjugate. The NILE RAMOS screen is designed to detect antibodies against dsDNA, histones, SS-A (Ro), SS-B (La), Mclean, Mclean/RING ROLLING MACHINE OPERATOR, Scl-70, Evelina-1, centromeric proteins, other antigens extracted from the HEp-2 cell nucleus. NILE RAMOS assays have been reported to have lower sensitivities than NILE IFA for systemic autoimmune rheumatic diseases (SARD). Negative results do not necessarily rule out SARD. Performed By: [employer] [address] [place] [id number] [employer] Tile Sorter: Benny Desai MD, PhD CLIA Number: [id number] Blood BLOOD SPECIMEN / Unknown Lab Venipuncture / Unknown 07/14/2023 4:58 PM CDT 07/14/2023 5:15 PM CDT Steve Bedolla MD LAB - CHEMISTRY LIONEL WHITT Performing Organization Address City/[facility]/ZIP Co de Phone Number [facility] ([facility]) [address] [place] [phone] [place] [address] * ALPHA FETOPROTEIN BLOOD TUMOR MARKER (07/14/2023 4:58 PM CDT) Alpha-Fetoprote in Tumor Marker <2.0 <=8.3 ng/mL 07/14/2023 6:11 PM CDT [facility] Comment: AFP values will vary depending on testing procedure used. Results are not comparable across different methods. AFP values obtained by [facility] using an [place] Alinity Immunoassay. Blood BLOOD SPECIMEN / Unknown Lab Venipuncture / Unknown 07/14/2023 4:58 PM CDT 07/14/2023 5:21 PM CDT Steve Bedolla MD LAB - CHEMISTRY LIONEL WHITT Performing Organization Address City/[facility]/ZIP Co de Phone Number [facility] [address] [place] [address], [facility] [phone] * BILIRUBIN DIRECT (07/14/2023 4:58 PM CDT) [facility] Bilirubin Conjugated 0.5 0.1 - 0.5 mg/dL 07/14/2023 5:50 PM CDT [facility] Blood BLOOD SPECIMEN / Unknown Lab Venipuncture / Unknown 07/14/2023 4:58 PM CDT 07/14/2023 5:21 PM CDT Steve Bedolla MD LAB - CHEMISTRY ORDE PERI Performing Organization Address [facility]/ZIP Co de Phone Number [address] [address], [facility] [phone] * (ABNORMAL) PT-INR [facility] (07/14/2023 4:58 PM CDT) [facility] PT 14.9(H) 12.1 - 14.8 Seconds 07/14/2023 5:59 PM CDT [facility] INR 1.2 See Comment 07/14/2023 5:59 PM CDT [facility] Comment:The suggested therap eutic range for standard coumadin (warfarin) therapy is an INR of 2.0-3.0. For high-risk patients (Mechanical Mitral Valve Prosthesis, etc.), the suggested prophylactic therapeutic range is an INR of 2.5-3.5. Blood BLOOD SPECIMEN / Unknown Lab Venipuncture / Unknown 07/14/2023 4:58 PM CDT 07/14/2023 5:15 PM CDT Steve Bedolla MD LAB - COAGULATION OR DERABLES Performing Organization Address [facility]/ZIP Co de Phone Number [address] [address], [facility] [phone] * (ABNORMAL) COMPREHENSIVE METABOLIC PANEL (07/14/2023 4:58 PM CDT) [facility] BUN 13 7 - 26 mg/dL 07/14/2023 5:50 PM CDT [facility] Creatinine 0.74 0.71 - 1.16 mg/dL 07/14/2023 5:50 PM CDT [facility] Sodium 135(L) 136 - 145 mmol/L 07/14/2023 5:50 PM [facility] Potassium 4.1 3.5 - 4.5 mmol/L 07/14/2023 5:50 PM [facility] Chloride 99 98 - 107 mmol/L 07/14/2023 5:50 PM [facility] CO2 24 22 - 29 mmol/L 07/14/2023 5:50 PM [facility] Glucose 343(H) 70 - 115 mg/dL 07/14/2023 5:50 PM [facility] Calcium 9.9 8.4 - 10.2 mg/dL 07/14/2023 5:50 PM [facility] Protein Total 7.4 6.0 - 8.3 g/dL 07/14/2023 5:50 PM [facility] Albumin 3.8 3.4 - 5.0 g/dL 07/14/2023 5:50 PM [facility] Bilirubin Total 4.8(H) 0.2 - 1.2 mg/dL 07/14/2023 5:50 PM [facility] Alkaline Phosphatase 112 40 - 150 U/L 07/14/2023 5:50 PM [facility] ALT 13 5 - 55 U/L 07/14/2023 5:50 PM [facility] AST 18 5 - 34 U/L 07/14/2023 5:50 PM [facility] Anion Gap 12 6 - 16 07/14/2023 5:50 PM [facility] BUN/Creatinine Ratio 18 7 - 23 07/14/2023 5:50 PM [facility] Osmolality Calculated 294 275 - 295 mOsm/kg 07/14/2023 5:50 PM [facility] Albumin/Globulin Ratio 1.1 1.1 - 2.3 07/14/2023 5:50 PM [facility] eGFR by CKD-EPI >90 >=90 mL/min/1.7 3 m2 07/14/2023 5:50 PM [facility] Blood BLOOD SPECIMEN / Unknown Lab Venipuncture / Unknown 07/14/2023 4:58 PM CDT 07/14/2023 5:21 PM CDT Steve Bedolla MD LAB - CHEMISTRY ORDKunal WHITT [facility] Organization Address City/State/ZIP Co de Phone Number [facility] [address] [place] [address], [facility] [phone] * (ABNORMAL) CBC WITH DIFFERENTIAL (07/14/2023 4:58 PM CDT) WBC 7.2 4.0 - 10.7 x10E9/L 07/14/2023 5:32 PM [facility] RBC Count 5.81(H) 4.30 - 5.80 x10E12/L 07/14/2023 5:32 PM [facility] Hemoglobin 15.2 13.3 - 17.5 g/dL 07/14/2023 5:32 PM [facility] Hematocrit 43.7 38.7 - 51.1 % 07/14/2023 5:32 PM [facility] MCV 75.2(L) 80.0 - 98.0 fL 07/14/2023 5:32 PM [facility] MCH 26.2(L) 26.7 - 33.6 pg 07/14/2023 5:32 PM [facility] MCHC 34.8 31.7 - 36.3 g/dL 07/14/2023 5:32 PM [facility] RDW-CV 18.6(H) 11.3 - 14.8 % 07/14/2023 5:32 PM [facility] Platelet Count 109(L) 150 - 420 x10E9/L 07/14/2023 5:32 PM [facility] MPV 10.5 7.8 - 11.4 fL 07/14/2023 5:32 PM [facility] Neutrophil % 71.1 41.0 - 74.0 % 07/14/2023 5:32 PM [facility] Lymphocyte % 15.5(L) 17.0 - 47.0 % 07/14/2023 5:32 PM [facility] Monocyte % 10.2 3.0 - 11.0 % 07/14/2023 5:32 PM [facility] Eosinophil % 1.9 0.0 - 7.0 % 07/14/2023 5:32 PM [facility] Basophil % 1.0 0.0 - 1.6 % 07/14/2023 5:32 PM [facility] Immature Granulocytes % 0.3 0.0 - 1.0 % 07/14/2023 5:32 PM [facility] Neutrophil Absolute 5.15 1.60 - 7.50 x10E9/L 07/14/2023 5:32 PM [facility] Lymphocyte Absolute 1.12 1.00 - 4.40 x10E9/L 07/14/2023 5:32 PM [facility] Monocyte Absolute 0.74 0.15 - 1.00 x10E9/L 07/14/2023 5:32 PM [facility] Eosinophil Absolute 0.14 0.00 - 0.60 x10E9/L 07/14/2023 5:32 PM [facility] Basophil Absolute 0.07 0.00 - 0.13 x10E9/L 07/14/2023 5:32 PM [facility] Blood BLOOD SPECIMEN / Unknown Lab Venipuncture / Unknown 07/14/2023 4:58 PM CDT 07/14/2023 5:22 PM CDT Steve Bedolla MD LAB - HEMATOLOGY ORD ERABLES Performing Organization Address City/State/[facility] Co de Phone Number [facility] [address] [place] [address], [facility] [phone] documented in this encounter Visit Diagnoses Diagnosis Cirrhosis of liver without ascites, unspecified hepatic cirrhosis type (HCC) documented in this encounter Care Teams Preschool Head Teacher Relationship Specialty Start Date End Date Braydon Pavon PA [address] [place] [address] PCP - General Physician Assistant Hvac Mechanic 07/14/23 documented as of this encounter
--- OUTSIDE RECORDS SUMMARY | 2024-05-08 05:45 | XMS_ITS | Encounter Summary ---
Author Organization [facility] Address [facility] [place] [address] Care Team Providers Care Site Monitor Name Role Phone Nikolay Lancaster MD Primary Care Provider [phone] Reason for Visit * Reason Onset Date Comments MEDICATION REFILL 12/08/2018 Encounter Details Date Type Department Care Team (Late Contact Info) Description 12/08/2018 Refill [facility] Endocrinology, Diabetes and Metabolism [address] [place] [address] Edmond Choi MD [address] [address] MEDICATION REFILL Social History Tobacco Use Types [...] 02/17/2024 11:59 PM CDT Anesthesia Event [facility] MRI [address] [place] [phone] Pushpa Frey, [address] [facility] [address] [phone] 05/20/2024 12:30 PM DATA INTEGRATION DEVELOPER Appointment [facility] MRI [address] [place] [phone] Steve Bedolla MD [address] [place] [address] documented as of this encounter Visit Diagnoses Not on filedocumented in this encounter Care Teams Site Monitor Relationship Specialty Start Date End Date Nikolay Lancaster MD [address] [place] [address] PCP - General 10/04/18 07/13/23 documented as of this encounter
--- OUTSIDE RECORDS SUMMARY | 2024-05-08 05:45 | XMS_ITS | Encounter Summary ---
Author Organization [facility] Address [facility]3 [facility] [place] [address] Care Team Providers Care Die Turner Name Role Phone Nikolay Lancaster MD Primary Care Provider [phone] Encounter Details Date Type Department Care Team (Latest Contact Info) Description 10/04/2018 7:55 PM CDT - 10/04/2018 11:59 PM T Hospital Encounter [facility] [address] [place] [address] Trice Blankenship, PUBLISHER ASSISTANT-SOLUTION PROFESSIONAL [address] [place] [address] Discharge Disposition: Home or Self [...] Description 02/17/2024 11:59 PM CDT Anesthesia Event [address] [phone] Pushpa Frey DO [address] [facility] [address] [phone] 05/20/2024 12:30 PM DELINQUENCY COUNSELOR Appointment [address] [place] [phone] Steve Bedolla MD [address] [place] [phone] documented as of this encounter Procedures Procedure [...] CDT 10/04/2018 8:11 PM CDT Trice Blankenship APRN-SOLUTION PROFESSIONAL LAB - MICROBIOLO GY ORDERABLES [facility] MICROBIOLOGY [address] [place] [address] [phone] documented in this encounter Visit Diagnoses Diagnosis Dysuria- Primary documented in this encounter Care Teams Die Turner Relationship Specialty Start Date End Date Nikolay Lancaster MD [address] [place] [address] PCP - General 10/04/18 07/13/23 documented as of this encounter
--- OUTSIDE RECORDS SUMMARY | 2024-05-08 05:45 | XMS_ITS | Encounter Summary ---
Author Organization [facility] Address [facility] [place] [address] Care Team Providers Care Cement Tile Maker Name Role Phone Braydon Pavon Primary Care Provider [phone] Encounter Details Date Type Department Care Team [...] Anesthesia Event [facility] MRI [address] [place] [phone] Pushpa Frey DO [address] [facility] [address] [phone] 05/20/2024 12:30 PM HUMAN FACTORS ENGINEER Appointment [facility] MRI [address] [place] [phone] Steve Bedolla MD [address] [place] [phone] documented as of this encounter Goals Goal [...] on filedocumented in this encounter Care Teams Cement Tile Maker Relationship Specialty Start Date End Date Braydon Pavon PA [address] [place] [address] PCP - General Physician Child Advocate 07/14/23 documented as of this encounter
--- OUTSIDE RECORDS SUMMARY | 2024-05-08 05:45 | XMS_ITS | Encounter Summary ---
Author Organization [facility] Address [address] [place], [place] [address] [address] Care Team Providers Care Leader Assembler Name Role Phone Braydon Pavon Primary Care Provider [phone] Reason for Visit * Reason Onset Date Comments Refill Request 06/04/2018 Encounter Details Date Type Department Care Team (Late st Contact Info) Description 06/04/2018 Refill [facility] Endocrinology, Diabetes and Metabolism [address] [place] [address] Edmond Choi MD [address] [address] Refill Request Social History Tobacco Use Types [...] insurance. Please review and refill if appropriate. LOADER documented in this encounter Plan of Treatment Upcoming Encounters Date Type Department Care Team (Late st Contact Info) Description 02/17/2024 11:59 PM CDT Anesthesia Event [facility] MRI [address] [place] [phone] Pushpa Frey DO [address] [facility] [address] [phone] 05/20/2024 12:30 PM HEAD LOADER Appointment [facility] MRI [address] [place] [address] Steve Bedolla MD [address] [place] [phone] documented as of this encounter Visit Diagnoses Not on filedocumented in this encounter Care Teams Leader Assembler Relationship Specialty Start Date End Date Braydon Pavon PA [address] [place] [address] PCP - General Physician Nitro Man 05/19/18 10/03/18 documented as of this encounter
--- OUTSIDE RECORDS SUMMARY | 2024-05-08 05:45 | XMS_ITS | Encounter Summary ---
Author Organization [facility] Address [facility]3 [facility] [place] [address] Care Team Providers Care Pants Cutter Name Role Phone Nikolay Lancaster MD Primary Care Provider [phone] Reason for Visit * Reason Onset Date Comments MEDICATION REFILL 10/08/2018 Encounter Details Date Type Department Care Team (Late Contact Info) Description 10/08/2018 Refill [facility] Endocrinology, Diabetes and Metabolism [address] [place] [address] Edmond Choi MD [address] [address] MEDICATION REFILL Social History Tobacco Use Types [...] PM CDT Anesthesia Event [facility] MRI [address] [place] [address] Pushpa Frey, [address] [facility] [address] [address] 05/20/2024 12:30 PM OPERATOR SPECIALIST COMMUNICATIONS Appointment [facility] MRI [address] [place] [address] Steve Bedolla MD [address] [place] [address] documented as of this encounter Visit Diagnoses Not on filedocumented in this encounter Care Teams Pants Cutter Relationship Specialty Start Date End Date Nikolay Lancaster MD [address] [place] [address] PCP - General 10/04/18 07/13/23 documented as of this encounter
--- OUTSIDE RECORDS SUMMARY | 2024-05-08 05:45 | XMS_ITS | Clinical Summary ---
Author Organization [facility] Address [address] [facility] [place] [address] Care Team Providers Care Housekeeping Aid Name Role Phone Braydon Pavon Primary Care Provider [phone] Source Comments [facility],non-owned Affiliates and Associated Physician Practices is amultiple site organization consisting of ambulatory clinics and hospital sitesin [place], [place], [place] and [place]. This disclosure is being madepursuant to the Care Everywhere program and may not contain all information available regarding this patient. Last updated 18.[facility] Allergies Active Allergy Reactions Criticality Noted Date [...] CDT - 02/12/2024 4:30 PM CDT Surgery [facility] ENDOSCOPY [address] [place] [address] Gaby Mistry MD EGD w/ agbim 02/12/2024 1:52 PM CDT Anesthesia Event [facility] ENDOSCOPY [address] [place] [address] Rangrass, MD Emmett Barros Amrita, MD 02/12/2024 11:04 AM CDT - 02/12/2024 2:45 PM CDT Hospital Encounter [facility] TORIBIO OP [address] [place] [address] Steve Bedolla MD Surgery General Discharge Disposition: Home or Self Care 02/12/2024 Travel from Last 3 Months Family History [...] Description 02/17/2024 11:59 PM CDT Anesthesia Event [facility] MRI [address] [place] [address] Pushpa Frey, DO [address] [address] 05/20/2024 12:30 PM BATH MIX OPERATOR Appointment [facility] MRI [address] [place] [address] Steve Bedolla MD [address] [place] [address] Health Maintenance Due Date Last Done [...] 1989 DIABETES-STATIN 2010 DIABETES RETINOPATHY SCREENING 05/24/2018 DIABETES-HGB A1C 11/21/2018 05/24/2018, 05/24/2018 DIABETES-FOOT EXAM WITH MONOFILAMENT 05/24/2019 05/24/2018 ZOSTER VACCINE (1 of 2) 2020 DEPRESSION SCREENING 05/04/2023 DIABETES - URINE PROTEIN SCREENING 05/04/2023 COVID-19 VACCINE (3 - 2023-2 [...] Procedure Name Priority Date/Time Associated Diagnosis Comments CT ED EGD FLEX TRANSORAL DX 02/12/2024 1:47 PM CDT Cirrhosis of liver without ascites, unspecified hepatic cirrhosis type (HCC) Special Needs Message Received: Yesterday Steve Bedolla MD [facility] Schedulers - Endoscopy Pool Please set [...] Procedure Code(s): ? --- Professional --- ? 71117, Esophagogastroduo denoscopy, flexible, transoral; diagnostic, ? including collection of specimen(s) by brushing or washing, when ? performed (separate procedure) Diagnosis Code(s): ?--- Professional --- ?I85.00, Esophageal varices without bleeding ?K22.89, Other specified disease of esophagus ?K76.6, Portal hypertension ?K31.89, Other diseases of stomach and duodenum ?K31.7, Polyp of stomach and duodenum CPT copyright 2021 [employer]. All rights reserved. The codes documented in this report are preliminary and upon foreign agent review may be revised to meet current compliance requirements. Gaby Mistry MD 02/12/2024 2:13:14 PM This report has been signed electronically. Note Initiated On: 02/12/2024 1:40 PM Number of Addenda: 0 ? [facility] ? [address] PROVATION 02/12/2024 1:40 PM CDT Gaby Mistry MD GI PROCEDURE ORDERAB LES [facility] PROVATION * (ABNORMAL) GLUCOSE - POINT OF CARE (02/12/2024 1:17 PM CDT) Only the most recent of2 resultswithin the time period is included. Glucose WB/POC 277(H) 70 - 115 mg/dL 02/12/2024 1:18 PM CDT [facility] Specimen Type Cap Fingerstick 2023 1:18 PM CDT [facility] Blood BLOOD SPECIMEN / Unknown 02/12/2024 1:17 PM CDT 02/12/2024 1:18 PM CDT Steve Bedolla MD LAB - POINT OF CARE ORDERABLES Performing Organization Address City/[facility]/ZIP Co de Phone Number [facility] [address] [place] [address], [place] [phone] * (ABNORMAL) COMPREHENSIVE METABOLIC PANEL (12/29/2023 1:12 PM CDT) BUN 13 7 - 26 mg/dL 12/29/2023 2:07 PM T [facility] Creatinine 0.73 0.71 - 1.16 mg/dL 12/29/2023 2:07 PM [facility] Sodium 138 136 - 145 mmol/L 12/29/2023 2:07 PM [facility] Potassium 4.8(H) 3.5 - 4.5 mmol/L 12/29/2023 2:07 PM [facility] Chloride 105 98 - 107 mmol/L 12/29/2023 2:07 PM [facility] CO2 25 22 - 29 mmol/L 12/29/2023 2:07 PM T [facility] Glucose 362(H) 70 - 115 mg/dL 12/29/2023 2:07 PM [facility] Calcium 9.8 8.4 - 10.2 mg/dL 12/29/2023 2:07 PM [facility] Protein Total 7.0 6.0 - 8.3 g/dL 12/29/2023 2:07 PM [facility] Albumin 3.7 3.4 - 5.0 g/dL 12/29/2023 2:07 PM [facility] Bilirubin Total 3.2(H) 0.2 - 1.2 mg/dL 12/29/2023 2:07 PM [facility] Alkaline Phosphatase 89 40 - 150 U/L 12/29/2023 2:07 PM [facility] ALT 16 5 - 55 U/L 12/29/2023 2:07 PM [facility] AST 23 5 - 34 U/L 12/29/2023 2:07 PM [facility] Anion Gap 8 6 - 16 12/29/2023 2:07 PM [facility] BUN/Creatinine Ratio 18 7 - 23 12/29/2023 2:07 PM [facility] Osmolality Calculated 301(H) 275 - 295 mOsm/kg 12/29/2023 2:07 PM [facility] Albumin/Globulin Ratio 1.1 1.1 - 2.3 12/29/2023 2:07 PM [facility] eGFR by CKD-EPI >90 >=90 mL/min/1.7 3 m2 12/29/2023 2:07 PM [facility] Blood BLOOD SPECIMEN / Unknown Lab Venipuncture / Unknown 12/29/2023 1:12 PM CDT 12/29/2023 1:37 PM T Steve Bedolla MD LAB - CHEMISTRY LIONEL WHITT [facility] Organization Address City/State/ZIP Co de Phone Number [facility] [address] [place] [address], [facility] [phone] * HEMOGLOBIN A1C - POINT OF CARE (AMB) U (05/24/2018) Hemoglobin A1c POCT 8.2 BLOOD SPECIMEN / Unknown 05/24/2018 Edmond Choi MD LAB - POINT OF CARE ORDERABLES from Last 3 Months or Most Recently Relevant to Health Maintenance Care Teams Housekeeping Aid Relationship Specialty Start Date End Date Braydon Pavon PA [address] [place] [address] PCP - General Physician Chief Administrative Officer 07/14/23
--- OUTSIDE RECORDS SUMMARY | 2024-05-08 05:45 | XMS_ITS | Encounter Summary ---
Author Organization [facility] Address [facility]3 [place] [address] Care Team Providers Care Head Bone Grinder Name Role Phone Braydon Pavon Primary Care Provider [phone] Reason for Referral * Radiology Services (Routine) - Closed Specialty Diagnoses / Procedures Referred By Contac t Referred To Contact Ultrasound Diagnoses Hepatic cirrhosis, unspecified hepatic cirrhosis type, unspecified whether ascites present (HCC) S/P TIPS (transjugular intrahepatic portosystemic shunt) Fatty liver Procedures US TIPS W ABDOMEN LIMITED Riddhi Bello [address] [place] [address] Referral ID Status Reason Start Date Expiration Date Visits Re quested Visits Authorized [id number] Closed 06/22/2023 06/21/2024 1 1 Reason for Visit * Radiology Services (Routine) - Closed Specialty Diagnoses / Procedures Referred By Contac t Referred To Contact Ultrasound Diagnoses Hepatic cirrhosis, unspecified hepatic cirrhosis type, unspecified whether ascites present (HCC) S/P TIPS (transjugular intrahepatic portosystemic shunt) Fatty liver Procedures US TIPS W ABDOMEN LIMITED Riddhi Bello [address] [place] [address] Referral ID Status Reason Start Date Expiration Date Visits Re quested Visits Authorized [id number] Closed 06/22/2023 06/21/2024 1 1 Encounter Details Date Type Department Care Team (Latest Contact Info) Description 07/24/2023 8:51 AM CDT - 07/24/2023 11:59 PM CDT Hospital Encounter [address] [address] Discharge Disposition: Home or Self Care Social [...] Description 02/17/2024 11:59 PM CDT Anesthesia Event [facility] MRI [address] [place] [address] Pushpa Frey DO [address] [facility] [address] [address] 05/20/2024 12:30 PM LINOLEUM TILE FLOOR LAYER Appointment [facility] MRI [address] [place] [address] Steve Bedolla MD [address] [place] [address] documented as of this encounter Goals Goal [...] on 07/24/2023 10:40 AM Ordering Provider Unlisted MD KIN[facility] ORDERAB LES documented in this encounter Visit Diagnoses Diagnosis Hepatic cirrhosis, unspecified hepatic cirrhosis type, unspecified whether ascites present (HCC) S/P TIPS (transjugular intrahepatic portosystemic shunt) Other postprocedural status Fatty liver Other chronic nonalcoholic liver disease documented in this encounter Care Teams Head Bone Grinder Relationship Specialty Start Date End Date Braydon Pavon PA [address] [place] [address] PCP - General Physician Trim Sawyer 07/14/23 documented as of this encounter
--- OUTSIDE RECORDS SUMMARY | 2024-05-08 05:45 | XMS_ITS | Encounter Summary ---
Author Organization [facility] Address [facility] [place] [address] Care Team Providers Care Gis Coordinator Name Role Phone Nikolay Lancaster MD Primary Care Provider [phone] Reason for Visit * Reason Onset Date Comments MEDICATION REFILL 12/23/2018 Encounter Details Date Type Department Care Team (Late Contact Info) Description 12/23/2018 Refill [facility] [address] [place] [address] Edmond Choi MD [address] [place] [address] MEDICATION REFILL Social History Tobacco Use Types [...] Gonzalez - 12/23/2018 1:51 PM CDT ELSA 05.24.18 NOV not scheduled INS will only pay for the vials and will only pay for 1 vial per month w/o an override. documented in this encounter Plan of Treatment Upcoming Encounters Date Type Department Care Team (Late Contact Info) Description 02/17/2024 11:59 PM CDT Anesthesia Event [facility] MRI [address] [place] [address] Pushpa Frey DO [address] [phone] 05/20/2024 12:30 PM REGISTERED NURSE OBSTETRICS Appointment [facility] MRI [address] [place] [address] Steve Bedolla MD [address] [place] [address] documented as of this encounter Visit Diagnoses Not on filedocumented in this encounter Care Teams Gis Coordinator Relationship Specialty Start Date End Date Nikolay Lancaster MD [address] [place] [address] PCP - General 10/04/18 07/13/23 documented as of this encounter
--- OUTSIDE RECORDS SUMMARY | 2024-05-08 05:45 | XMS_ITS | Encounter Summary ---
Author Organization [facility] Address [facility]3 [facility] [place] [address] Care Team Providers Care Broach Operator Name Role Phone Braydon Pavon Primary Care Provider [phone] Encounter Details Date Type Department Care Team [...] Anesthesia Event [facility] MRI [address] [place] [address] Pushpa Frey DO [address] [facility] [address] [address] 05/20/2024 12:30 PM SR. OPERATIONS MANAGER Appointment [facility] MRI [address] [place] [address] Steve Bedolla MD [address] [place] [address] documented as of this encounter Goals Goal [...] on filedocumented in this encounter Care Teams Broach Operator Relationship Specialty Start Date End Date Braydon Pavon PA [address] [place] [address] PCP - General Physician Principal Network Engineer 07/14/23 documented as of this encounter
--- OUTSIDE RECORDS SUMMARY | 2024-05-08 05:45 | XMS_ITS | Encounter Summary ---
Author Organization [facility] Address [facility]3 [facility] [place] [address] Care Team Providers Care Shell Shop Supervisor Name Role Phone Braydon Pavon Primary Care Provider [phone] Encounter Details Date Type Department Care Team [...] 02/17/2024 11:59 PM CDT Anesthesia Event [facility] MRI [address] [place] [address] Pushpa Frey DO [address] [facility] [address] [address] 05/20/2024 12:30 PM SPORTS ATHLETIC TRAINER Appointment [facility] MRI [address] [place] [address] Steve Bedolla MD [address] [place] [address] documented as of this encounter Goals Goal [...] on filedocumented in this encounter Care Teams Shell Shop Supervisor Relationship Specialty Start Date End Date Braydon Pavon PA [address] [place] [address] PCP - General Physician Web Production Manager 07/14/23 documented as of this encounter
--- OUTSIDE RECORDS SUMMARY | 2024-05-08 05:45 | XMS_ITS | Encounter Summary ---
Author Organization [facility] Address [facility]3 [facility] [place] [address] Care Team Providers Care Towboat Engineer Name Role Phone Braydon Paovn Primary Care Provider [phone] Reason for Visit * Reason Onset Date Comments Medication Prior Auth Request 01/05/2024 PA needed for Xifaxan Encounter Details Date Type Department Care Team (Late st Contact Info) Description 01/05/2024 Telephone [facility] - [address] [place] [address] Sulema Arvizu, [facility] Medication Prior Auth Request (PA needed for [...] THROUGH 01-20-2025 Submitted via: Cover My Meds ([place]:[id number]) Insurance: [employer] / Aetna [place] Medicaid Helpdesk: [phone] Benito Addison, Medication Property Inspector Pharmacy [facility] [...] - Pending Submitted via: Cover My Meds ([place]:[id number]) Insurance: [employer] / [employer]na [place] Medicaid Helpdesk: [phone] Benito Addison, Medication Property Inspector Pharmacy [facility] [...] Description 02/17/2024 11:59 PM CDT Anesthesia Event [facility] MRI [address] [place] [address] Pushpa Frey, DO 3691 [facility] [address] [address] 05/20/2024 12:30 PM DRILL OPERATOR Appointment [facility] MRI [address] [place] [address] Steve Bedolla MD [address] [place] [address] documented as of this encounter [...] on filedocumented in this encounter Care Teams Towboat Engineer Relationship Specialty Start Date End Date Brayodn Pavon PA [address] [place] [address] PCP - General Physician Registered Dental Assistant 07/14/23 documented as of this encounter
--- OUTSIDE RECORDS SUMMARY | 2024-05-08 05:45 | XMS_ITS | Encounter Summary ---
Author Organization [facility] Address [facility]3 [place] [address] Care Team Providers Care Powerhouse Electrician Name Role Phone Nikolay Lancaster MD Primary Care Provider Reason for Visit * Reason Onset Date Comments Pre-admit 02/09/2019 Encounter Details Date Type Department Care Team (Late st Contact Info) Description 02/09/[address] [facility] PHYS INTERNAL MED [address] [place] [address] Lukas Moses Jr., MD [facility] [address] [place] [address] [address] [place] [address] Pre-admit Social History Tobacco Use [...] that he left AMA from the ER. [facility] GI remains happy to accepthim for further care should he represent. * Telephone Encounter - Lukas Moses Jr., MD - 02/09/2019 5:54 AM CDT Contacted by Dr. Moreno at [facility] to transfer Mr. Curry. Briefly, he [...] [facility] [address] [place] [address] Pushpa Frey DO [address] [facility] [address] [phone] 05/20/2024 12:30 PM RPG DEVELOPER Appointment [facility] MRI [address] [place] [address] Steve Bedolla MD [address] [place] [address] documented as of this encounter Visit Diagnoses Not on filedocumented in this encounter Care Teams Powerhouse Electrician Relationship Specialty Start Date End Date Nikolay Lancaster MD [address] [place] [address] PCP - General 10/04/18 07/13/23 documented as of this encounter
--- OUTSIDE RECORDS SUMMARY | 2024-05-08 05:45 | XMS_ITS | Encounter Summary ---
Author Organization [facility] Address [facility] [place] [address] Care Team Providers Care White Metal Caster Name Role Phone Nikolay Lancaster MD Primary Care Provider [phone] Reason for Visit * Reason Comments Refill Request Encounter Details Date Type Department Care Team (Late Contact Info) Description 01/11/2019 Refill [facility] [address] [place] [address] Fabiola Boyd MD [address] [place] [address] Refill Request Social History Tobacco Use Types [...] - [facility] MRI [address] [place] [address] Pushpa Frey DO [address] [phone] 05/20/2024 12:30 PM DRILLER MACHINE Appointment [facility] MRI [address] [place] [phone] Steve Bedolla MD [address] [place] [address] documented as of this encounter Visit Diagnoses Diagnosis 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
--- OUTSIDE RECORDS SUMMARY | 2024-05-08 05:45 | XMS_ITS | Encounter Summary ---
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) Procedures US TIPS W ABDOMEN LIMITED Unlnegro, Ordering ProviderMD Referral ID Status Reason Start Date Expiration Date Visits Re quested Visits Authorized [id number] Closed 02/17/2023 02/17/2024 1 1 Reason for Visit * Radiology Services (Routine) - Closed Specialty Diagnoses / Procedures Referred By Contac t Referred To Contact Ultrasound Diagnoses 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) Procedures US TIPS W ABDOMEN LIMITED Elvira, Ordering ProviderMD Referral ID Status Reason Start Date Expiration Date Visits Re quested Visits Authorized [id number] Closed 02/17/2023 02/17/2024 1 1 Encounter Details Date Type Department Care Team (Latest Contact Info) Description 03/04/2023 8:38 AM CDT - 03/04/2023 11:59 PM CDT Hospital Encounter [address] [address] Discharge Disposition: Home or Self Care Social [...] Description 02/17/2024 11:59 PM CDT Anesthesia Event [facility] MRI [address] [place] [address] Pushpa Frey DO [address]691 [facility] DEPT [address] [address] 05/20/2024 12:30 PM VALVE REPAIRER Appointment [facility] MRI [address] [place] [address] Steve Bedolla MD [address] [place] [address] documented as of this encounter Procedures Procedure [...] protocol. Report dictated by Robert Faustin MD, (assistant to the vice president). I, Ana Gardner MD have personally reviewed and interpreted this examination/study. > Interpreting Provider: Ana Gardner MD on 03/04/2023 2:12 PM Narrative 03/04/2023 2:12 PM CDT PROCEDURE: ??US TIPS W ABDOMEN LIMITED, DATE/TIME OF EXAM: ??03/04/2023 8:38 AM, LOCATION ??[facility] INDICATION: K75.81: 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 [...] LIMITED, DATE/TIME OF EXAM: 38:38 AM, LOCATION [facility] INDICATION: K75.81: 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 [...] protocol. Report dictated by Robert Faustin MD, (assistant to the vice president). I, Ana Gardner MD have personally reviewed and interpreted this examination/study. 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
--- OUTSIDE RECORDS SUMMARY | 2024-05-08 05:45 | XMS_ITS | Encounter Summary ---
Author Organization [facility] Address [address] [facility] [place] [address] Care Team Providers Care Cable Testers Helper Name Role Phone Nikolay Lancaster MD Primary Care Provider [phone] Encounter Details Date Type Department Care Team [...] [facility] MRI [address] [place] [phone] Pushpa Frey DO [address] [facility] [address] [phone] 05/20/2024 12:30 PM NURSES EDUCATOR Appointment [facility] MRI [address] [place] [phone] Steve Bedolla MD [address] [place] [address] documented as of this encounter Visit Diagnoses Not on filedocumented in this encounter Care Teams Cable Testers Helper Relationship Specialty Start Date End Date Nikolay Lancaster MD [address] [place] [address] PCP - General 10/04/18 07/13/23 documented as of this encounter
--- OUTSIDE RECORDS SUMMARY | 2024-05-08 05:45 | XMS_ITS | Encounter Summary ---
Author Organization [facility] Address [address] [facility] [place] [address] Care Team Providers Care Diamond Expert Name Role Phone Braydon Pavon Primary Care Provider [phone] Reason for Visit * Auth/Cert (Routine) Specialty Diagnoses / Procedures Referred By Contac t Referred To Contact Diagnoses Cirrhosis of liver without ascites, unspecified hepatic cirrhosis type (HCC) Procedures [place] [facility] EGD FLEX TRANSORAL DX EGD w/ agbim ESOPHAGOGASTRODUODENOSCOPY (EGD) DIAGNOSTIC Referral ID Status Reason Start Date Expiration Date Visits Re quested Visits Authorized [id number] 1 1 Encounter Details Date Type Department Care Team (Late st Contact Info) Description 02/12/2024 4:00 PM CDT - 02/12/2024 4:30 PM CDT Surgery [facility] ENDOSCOPY [address] [place] [address] Gaby Mistry MD [address] [place] [phone] EGD w/ agbim Surgery Details Date/Time Status Location OR Service Patient Class Case Class Case Type Trauma Case? 02/12/2024 4:00 PM Posted [facility] Endoscopy ENDO 1 Gastroenterology Surgery Day Care Elective > 5 days Panel 1 Procedure LRB Anes Op Region Wound Class Comments EGD w/ agbim N/A MAC Esophagus NA irregular z-line PHG two small gastric polyps small esophageal varices Surgeon Surgeon Role Service Panel Gaby Mistry MD Primary Gastroenterology 1 Special Needs Message Received: Yesterday Agbim, Steve A, MD P [facility] Schedulers - Endoscopy Pool Please set [...] ask them during your visits. ?? Copyright [employer] 2020 Information is for End User's use only and may not be sold, redistributed or otherwise used for commercial purposes. All illustrations and images included in CareNotes?? are the copyrighted property of [employer] or [email or web address] The above information is an educational administrator only. It is not intended as medical [...] file Social History Narrative Disabled. 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 [employer] Social Determinants of Health Financial Resource Strain: [...] to engaging gainful employment for short or assisted and even leading to permanent disability and/or [...] changes Gaby Mistry MD Gastroenterology & Hepatology [facility] documented in this encounter Plan of Treatment Upcoming Encounters Date Type Department Care Team (Late st Contact Info) Description 02/17/2024 11:59 PM CDT Anesthesia Event [facility] [address] [place] [address] Pushpa Frey, DO [address] [facility] [address] [phone] 05/20/2024 12:30 PM DIRECTOR SALES TRAINING Appointment [facility] MRI [address] [place] [address] Steve Bedolla MD [address] [place] [address] documented as of this encounter [...] Message Received: Yesterday Steve Bedolla MD P [facility] Schedulers - Endoscopy Pool Please set [...] Procedure Code(s): ? --- Professional --- ? 95510, Esophagogastroduo denoscopy, flexible, transoral; diagnostic, ? including collection of specimen(s) by brushing or washing, when ? performed (separate procedure) Diagnosis Code(s): ?--- Professional --- ?I85.00, Esophageal varices without bleeding ?K22.89, Other specified disease of esophagus ?K76.6, Portal hypertension ?K31.89, Other diseases of stomach and duodenum ?K31.7, Polyp of stomach and duodenum CPT copyright 2021 [employer]. All rights reserved. The codes documented in this report are preliminary and upon yarn tester review may be revised to meet current compliance requirements. Gaby Mistry MD 02/12/2024 2:13:14 PM This report has been signed electronically. Note Initiated On: 02/12/2024 1:40 PM Number of Addenda: 0 ? [facility] ? [address] [place] [address] [facility] PROVATION 02/12/2024 1:40 PM CDT Gaby Mistry MD GI PROCEDURE ORDERAB LES Performing Organization Address [facility]/ZIP Co de Phone Number [facility] PROVATION * (ABNORMAL) GLUCOSE - POINT OF CARE (02/12/2024 1:17 PM CDT) Glucose WB/POC 277(H) 70 - 115 mg/dL 02/12/2024 1:18 PM CDT [facility] LABORATORY [facility] Specimen Type Cap Fingerstick 2023 1:18 PM CDT [facility] Blood BLOOD SPECIMEN / Unknown 02/12/2024 1:17 PM CDT 02/12/2024 1:18 PM CDT Steve Bedolla MD LAB - POINT OF CARE ORDERABLES Performing Organization Address [facility] Co de Phone Number [facility] [address] [place] [address], [place] [phone] * (ABNORMAL) GLUCOSE - POINT OF CARE (02/12/2024 11:47 AM CDT) Glucose WB/POC 342(H) 70 - 115 mg/dL 02/12/2024 11:49 AM CDT [facility]ITAL Specimen Type Venous 02/12/2024 11:49 AM CDT [facility] Blood BLOOD SPECIMEN / Unknown 02/12/2024 11:47 AM CDT 02/12/2024 11:49 AM CDT Steve Bedolla MD LAB - POINT OF CARE ORDERABLES Performing Organization Address [facility]/ZIP Co de Phone Number [facility] [address] [place] [address], [place] [phone] documented in this encounter Visit Diagnoses Diagnosis [...] RN) documented in this encounter Care Teams Diamond Expert Relationship Specialty Start Date End Date Braydon Pavon PA [address] [place] [address] PCP - General Physician Testing And Regulating Chief 07/14/23 documented as of this encounter
--- OUTSIDE RECORDS SUMMARY | 2024-05-08 05:45 | XMS_ITS | Encounter Summary ---
Author Organization [facility] Address [address] [place] [address] [place] [address] Care Team Providers Care Filer And Sander Name Role Phone Braydon Pavon Primary Care Provider [phone] Encounter Details Date Type Department Care Team (Latest Contact Info) Description 12/29/2023 1:12 PM CDT - 12/29/2023 11:59 PM T Hospital Encounter [facility] LAB OP DRAW STATION [address] [place] [phone] Discharge Disposition: Home or Self Care Social [...] Description 02/17/2024 11:59 PM CDT Anesthesia Event [facility] [address] [place] [address] Pushpa Frey, DO [address] [facility] [address] [phone] 05/20/2024 12:30 PM GENERAL DISTILLERY WORKER Appointment [facility] [address] [place] [address] Steve Bedolla MD [address] [place] [address] documented as of this encounter Goals Goal [...] chetna Non-react chetna 12/29/2023 2:13 PM CDT [facility] Comment: < 8 mIU/mL Hepatitis B surface Antibody (HBsAb). Nonreactive for HBsAb - individual is considered not immune to Hepatitis B Virus infection. Hepatitis B Surface Antibody Quantitative 0.3 <8.0 mIU/mL 12/29/2023 2:13 PM CDT [facility] Comment: Hepatitis B Surface Antibody Numeric Result Interpretation: ? Nonreactive: ?<8.0 mIU/mL ? Indeterminate: ??8.0 - 12.0 mIU/mL ? Reactive: ?>12.0 mIU/mL ? Blood BLOOD SPECIMEN / Unknown Lab Venipuncture / Unknown 12/29/2023 1:12 PM CDT 12/29/2023 1:26 PM CDT Steve Bedolla MD LAB - CHEMISTRY LIONEL WHITT Performing Organization Address [facility] de Phone Number [facility] [address] [place] [address], [facility] [phone] * HEPATITIS A ANTIBODY (12/29/2023 1:12 PM CDT) Pathologist [facility] Hepatitis A Virus Antibody Total Negative Negative 12/31/2023 8:56 AM CDT [email or web address] ([facility]) Comment: Performed By: [employer] [address] [place] [address] Communicable Disease Specialist: Benny Desai MD, PhD CLIA Number: [id number] Blood BLOOD SPECIMEN / Unknown Lab Venipuncture / Unknown 12/29/2023 1:12 PM CDT 12/29/2023 1:26 PM CDT Steve Bedolla MD LAB - CHEMISTRY LIONEL WHITT Performing Organization Address [facility] Co de Phone Number [email or web address] ([facility]) [address] [place] [address] * ALPHA FETOPROTEIN BLOOD TUMOR MARKER (12/29/2023 1:12 PM CDT) Alpha-Fetoprote in Tumor Marker 2.2 <=8.3 ng/mL 12/29/2023 2:22 PM CDT [facility] Comment: AFP values will vary depending on testing procedure used. Results are not comparable across different methods. AFP values obtained by [facility] using an Phoenix Alinity Immunoassay. Blood BLOOD SPECIMEN / Unknown Lab Venipuncture / Unknown 12/29/2023 1:12 PM CDT 12/29/2023 1:36 PM CDT Steve Bedolla MD LAB - CHEMISTRY LIONEL WHITT [address] [address], [facility] [phone] * BILIRUBIN DIRECT (12/29/2023 1:12 PM CDT) Pathologist [facility] Bilirubin Conjugated 0.5 0.1 - 0.5 mg/dL 12/29/2023 2:07 PM CDT [facility] Blood BLOOD SPECIMEN / Unknown Lab Venipuncture / Unknown 12/29/2023 1:12 PM CDT 12/29/2023 1:37 PM CDT Steve Bedolla MD LAB - CHEMISTRY LIONEL WHITT Performing Organization Address [facility]/ZIP Co de Phone Number [address] [address], [place] [phone] * PT-INR [facility] (12/29/2023 1:12 PM CDT) Pathologist [facility] PT 13.9 12.1 - 14.8 Seconds 12/29/2023 2:29 PM CDT [facility] INR 1.1 See Comment 12/29/2023 2:29 PM CDT [facility] Comment:The suggested therap eutic range for standard coumadin (warfarin) therapy is an INR of 2.0-3.0. For high-risk patients (Mechanical Mitral Valve Prosthesis, etc.), the suggested prophylactic therapeutic range is an INR of 2.5-3.5. Blood BLOOD SPECIMEN / Unknown Lab Venipuncture / Unknown 12/29/2023 1:12 PM CDT 12/29/2023 1:26 PM CDT Steve Bedolla MD LAB - COAGULATION OR DERABLES [facility] [address] [place] [address], [facility] [phone] * (ABNORMAL) COMPREHENSIVE METABOLIC PANEL (12/29/2023 1:12 [...] >=90 mL/min/1.7 3 m2 12/29/2023 2:07 PM [facility] Blood BLOOD SPECIMEN / Unknown Lab Venipuncture / Unknown 12/29/2023 1:12 PM CDT 12/29/2023 1:37 PM CDT Steve Bedolla MD LAB - CHEMISTRY LIONEL WHITT [facility] Organization Address City/State/ZIP Co de Phone Number [facility] [address] [place] [address], [facility] [phone] * (ABNORMAL) CBC WITH DIFFERENTIAL (12/29/2023 1:12 PM CDT) WBC 4.2 4.0 - 10.7 x10E9/L 12/29/2023 1:52 PM [facility] RBC Count 5.58 4.30 - 5.80 x10E12/L 12/29/2023 1:52 PM [facility] Hemoglobin 15.8 13.3 - 17.5 g/dL 12/29/2023 1:52 PM [facility] Hematocrit 44.7 38.7 - 51.1 % 12/29/2023 1:52 PM [facility] MCV 80.1 80.0 - 98.0 fL 12/29/2023 1:52 PM [facility] MCH 28.3 26.7 - 33.6 pg 12/29/2023 1:52 PM [facility] MCHC 35.3 31.7 - 36.3 g/dL 12/29/2023 1:52 PM [facility] RDW-CV 18.2(H) 11.3 - 14.8 % 12/29/2023 1:52 PM [facility] Platelet Count 84(L) 150 - 420 x10E9/L 12/29/2023 1:52 PM [facility] MPV 10.0 7.8 - 11.4 fL 12/29/2023 1:52 PM [facility] Neutrophil % 68.4 41.0 - 74.0 % 12/29/2023 1:52 PM [facility] Lymphocyte % 17.5 17.0 - 47.0 % 12/29/2023 1:52 PM [facility] Monocyte % 9.2 3.0 - 11.0 % 12/29/2023 1:52 PM [facility] Eosinophil % 3.5 0.0 - 7.0 % 12/29/2023 1:52 PM [facility] Basophil % 1.2 0.0 - 1.6 % 12/29/2023 1:52 PM [facility] Immature Granulocytes % 0.2 0.0 - 1.0 % 12/29/2023 1:52 PM [facility] Neutrophil Absolute 2.89 1.60 - 7.50 x10E9/L 12/29/2023 1:52 PM [facility] Lymphocyte Absolute 0.74(L) 1.00 - 4.40 x10E9/L 12/29/2023 1:52 PM [facility] Monocyte Absolute 0.39 0.15 - 1.00 x10E9/L 12/29/2023 1:52 PM [facility] Eosinophil Absolute 0.15 0.00 - 0.60 x10E9/L 12/29/2023 1:52 PM [facility] Basophil Absolute 0.05 0.00 - 0.13 x10E9/L 12/29/2023 1:52 PM [facility] Blood BLOOD SPECIMEN / Unknown Lab Venipuncture / Unknown 12/29/2023 1:12 PM CDT 12/29/2023 1:36 PM CDT Steve Bedolla MD LAB - HEMATOLOGY ORD ERABLES [facility] [place] Organization Address City/State/ZIP Co de Phone Number [facility] [address] [address], [facility] [phone] documented in this encounter Visit Diagnoses Diagnosis Cirrhosis of liver without ascites, unspecified hepatic cirrhosis type (HCC) Encounter for screening for other viral diseases documented in this encounter Care Teams Filer And Sander Relationship Specialty Start Date End Date Braydon Pavon PA [address] [place] [address] PCP - General Physician Sustainable Design Coordinator 07/14/23 documented as of this encounter
--- OUTSIDE RECORDS SUMMARY | 2024-05-08 05:45 | XMS_ITS | Encounter Summary ---
Author Organization [facility] Address [facility] [place] [address] Care Team Providers Care Pie Chef Name Role Phone Nikolay Lancaster MD Primary Care Provider [phone] Reason for Visit * Reason Onset Date Comments Results 10/07/2018 Encounter Details Date Type Department Care Team (Late st Contact Info) Description 10/07/2018 Telephone [facility] [address] [place] [address] Trice Blankenship APRN-CNP [address] [place] [address] Results Social History Tobacco Use [...] Description 02/17/2024 11:59 PM CDT Anesthesia Event [facility] MRI [address] [place] [address] Pushpa Frey DO [address] [facility] [address] [phone] 05/20/2024 12:30 PM NEPHROLOGY NURSE Appointment [facility] MRI [address] [place] [address] Steve Bedolla MD [address] [place] [address] documented as of this encounter Visit Diagnoses Not on filedocumented in this encounter Care Teams Pie Chef Relationship Specialty Start Date End Date Nikolay Lancaster MD [address] [place] [address] PCP - General 10/04/18 07/13/23 documented as of this encounter
--- OUTSIDE RECORDS SUMMARY | 2024-05-08 05:45 | XMS_ITS | Encounter Summary ---
Author Organization [facility] Address [facility] [place] [address] Care Team Providers Care Round Boner Name Role Phone Braydon Pavon Primary Care Provider [phone] Reason for Visit * Reason Onset Date Comments MEDICATION REFILL 06/07/2018 Encounter Details Date Type Department Care Team (Late st Contact Info) Description 06/07/2018 Refill [facility] Diabetes [facility] Metabolism [address] [place] [address] Edmond Choi MD [address] [address] MEDICATION REFILL Social History Tobacco Use Types [...] patient on file. Both called in to [place] [facility] INE I ENGRAVER * Telephone Encounter - Mary Grace Paredes LPN - 06/07/2018 8:02 AM CST Different syringe type is needed for humulin RU 500 Please review and refill if appropriate INE I ENGRAVER documented in this encounter Plan of Treatment Upcoming Encounters Date Type Department Care Team (Late st Contact Info) Description 02/17/2024 11:59 PM CDT Anesthesia Event [facility] MRI [address] [place] [phone] Pushpa Frey, [address] [facility] [address] [phone] 05/20/2024 12:30 PM MACHINE I ENGRAVER Appointment [facility] MRI [address] [place] [phone] Steve Bedolla MD [address] [place] [address] documented as of this encounter Visit Diagnoses Not on filedocumented in this encounter Care Teams Round Boner Relationship Specialty Start Date End Date Braydon Pavon PA [address] [place] [address] PCP - General Physician Risk Investigator 05/19/18 10/03/18 documented as of this encounter
--- OUTSIDE RECORDS SUMMARY | 2024-05-08 05:45 | XMS_ITS | Encounter Summary ---
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) Social [...] [facility] [address] [place] [phone] Pushpa Frey DO [address] [facility] [address] [phone] 05/20/2024 12:[address] REFEREE Appointment [facility] MRI [address] [place] [phone] Steve Bedolla MD [address] [place] [address] Scheduled Orders Name Type Priority Associated Diagnoses [...] disease documented in this encounter Care Teams Wastewater Treatment Plant Chemist Relationship Specialty Start Date End Date Braydon Pavon PA [address] [place] [address] PCP - General Physician Consumer Affairs Manager 05/19/18 10/03/18 documented as of this encounter
--- OUTSIDE RECORDS SUMMARY | 2024-05-08 05:45 | XMS_ITS | Encounter Summary ---
Author Organization [facility] Address [facility] [place] [address] Care Team Providers Care Sephora Operations Consultant Name Role Phone Braydon Pavon Primary Care Provider [phone] Reason for Visit * Reason Comments Refill Request Encounter Details Date Type Department Care Team (Late Contact Info) Description 08/26/2018 Refill [facility] [address] [place] [address] Aleksandr Fink MD [address] [place] [address] Refill Request Social History Tobacco Use Types [...] Anesthesia Event [facility] MRI [address] [place] [phone] Pushpa Frey [facility] [facility] [address] [phone] 05/20/2024 12:30 PM CLINICAL ASSOCIATE Appointment [facility] MRI [address] [place] [address] Steve Bedolla MD [address] [place] [phone] documented as of this encounter Visit Diagnoses Not on filedocumented in this encounter Care Teams Sephora Operations Consultant Relationship Specialty Start Date End Date Braydon Pavon PA [address] [place] [address] PCP - General Physician Ramp Boss 05/19/18 10/03/18 documented as of this encounter
--- OUTSIDE RECORDS SUMMARY | 2024-05-08 05:45 | XMS_ITS | Encounter Summary ---
Author Organization [facility] Address [address] [place], [place] [address] [address] Care Team Providers Care Airport Duty Manager Name Role Phone Braydon Pavon Primary Care Provider [phone] Reason for Visit * Reason Comments Gas Letter Encounter Details Date Type Department Care Team (Late st Contact Info) Description 08/11/2018 Telephone [facility] [address] [place] [address] Karlene Joaquin, RN Gas; Letter [...] Description 02/17/2024 11:59 PM CDT Anesthesia Event [facility] MRI [address] [place] [phone] Pushpa Frey DO 3691 [facility] [address] [phone] 05/20/2024 12:30 PM GAS INSPECTOR Appointment [facility] MRI [address] [place] [phone] Steve Bedolla MD [address] [place] [address] documented as of this encounter Visit Diagnoses Not on filedocumented in this encounter Care Teams Airport Duty Manager Relationship Specialty Start Date End Date Braydon Pavon PA [address] [place] [address] PCP - General Physician Caddy/Caddie Supervisor 05/19/18 10/03/18 documented as of this encounter
--- OUTSIDE RECORDS SUMMARY | 2024-05-08 05:45 | XMS_ITS | Encounter Summary ---
Author Organization [facility] Address [address] [place], [place] [address] [address] Care Team Providers Care Physician Compensation Analyst Name Role Phone Braydon Pavon Primary Care Provider [phone] Reason for Visit * Reason Onset Date Comments Medication Prior Auth Request 07/17/2023 Encounter Details Date Type Department Care Team ([facility] Contact Info) Description 07/17/2023 Telephone [facility] [address] [phone] Sulema Arvizu RPhT Medication Prior Auth Request [...] Upcoming Encounters Date Type Department Care Team ([facility] st Contact Info) Description 02/17/2024 11:59 PM CDT Anesthesia Event [facility] MRI [address] [place] [phone] Pushpa Frey DO 3691 [facility] [address] [place] [address] 05/20/2024 12:30 PM DIRECTOR OF OPERATIONS Appointment [facility] MRI [address] [place] [address] Steve Bedolla MD [address] [place] [address] documented as of this encounter [...] on filedocumented in this encounter Care Teams Physician Compensation Analyst Relationship Specialty Start Date End Date Braydon Pavon PA [address] [place] [address] PCP - General Physician Bend Up 07/14/23 documented as of this encounter
--- OUTSIDE RECORDS SUMMARY | 2024-05-08 05:45 | XMS_ITS | Encounter Summary ---
Author Organization [facility] Address [address] [facility] [place] [address] Care Team Providers Care Research Intern Name Role Phone Braydon Pavon Primary Care Provider [phone] Encounter Details Date Type Department Care Team [...] Description 02/17/2024 11:59 PM CDT Anesthesia Event [facility] MRI [address] [place] [phone] Pushpa Frey, DO 3[address] [facility] [address] [phone] 05/20/2024 12:30 PM ADMINISTRATION ASSISTANT Appointment [facility] MRI [address] [place] [address] Steve Bedolla MD [address] [place] [address] documented as of this encounter Goals Goal Patient Goal Type Associated Problems Recent Progress Patient-Stated? Author Medication Management General On track( 024 3:12 PM CDT) Yoly Lny, RN Note: Expected end date: ongoing Interventions: Take all medications as prescribed Let your doctor know right away about any changes in your medications Make sure to request a refill of your medication at least one week prior to your last dose documented as of this encounter Visit Diagnoses Not on filedocumented in this encounter Care Teams Research Intern Relationship Specialty Start Date End Date Braydon Pavon PA [address] [place] [address] PCP - General Physician Senior Sustainability Advisor 07/14/23 documented as of this encounter
--- OUTSIDE RECORDS SUMMARY | 2024-05-08 05:45 | XMS_ITS | Encounter Summary ---
Author Organization [facility] Address [facility] [place] [address] Care Team Providers Care Community Health Promoter Name Role Phone Braydon Pavon Primary Care Provider [phone] Reason for Referral * Radiology Services (Routine) - Closed Specialty Diagnoses / Procedures Referred By Contac t Referred To Contact MRI Diagnoses Cirrhosis of liver without ascites, unspecified hepatic cirrhosis type (HCC) Liver lesion Procedures MRI Abdomen Wwo Contrast Steve Bedolla MD [address] [phone] [facility] Mri [address] [place] [address] Referral ID Status Reason Start Date Expiration Date Visits Re quested Visits Authorized [id number] Closed 02/11/2024 04/11/2024 1 1 * Procedure (Routine) - Open Specialty Diagnoses / Procedures Referred By Contac t Referred To Contact Gastroenterology Diagnoses Cirrhosis of liver without ascites, unspecified hepatic cirrhosis type (HCC) Procedures EGD Steve Bedolla MD [address] [phone] Referral ID Status Reason Start Date Expiration Date Visits Re quested Visits Authorized [id number] Open 12/29/2023 12/28/2024 1 1 * Consultation (Routine) - Closed Specialty Diagnoses / Procedures Referred By Contac t Referred To Contact Endocrinology Diagnoses Cirrhosis of liver without ascites, unspecified hepatic cirrhosis type (HCC) Steve Bedolla MD [address] [phone] [address] Referral ID Status Reason Start Date Expiration Date V isits Requested Visits Authorized [id number] Closed Specialty Services Required 12/29/2023 12/28/2024 4 4 Reason for Visit * Reason Comments Cirrhosis Encounter Details Date Type Department Care Team (Late st Contact Info) Description 12/29/2023 11:30 AM CDT Office Visit [facility] - GI [address] [place] [phone] Steve Bedolla MD [address] [place] [phone] Cirrhosis of liver without ascites, unspecified [...] Bedolla MD - 12/29/2023 12:04 PM CDT [facility] Referring Provider: Riddhi [...] saw Mr. Curry in [facility] at [facility] today for a follow-up visit regarding decompensated cirrhosis. He is a 53 year old man whose last clinic visit was 07/14/2023 and today is accompanied by his and 2nd cousin . Liver History Previously followed by Dr. Kathryn Ellis and Dr. Elian Estrada at [facility] but insurance changed. History of GI [...] updated and corrected these sections of his [facility] electronic health record based on my discussions with him and/orhis family members present at his visit today. Social History Social History Narrative Disabled. 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 [address] Orders Placed This Encounter MRI Abdomen Wwo Contrast CBC WITH DIFFERENTIAL COMPREHENSIVE METABOLIC PANEL PT-INR [facility] BILIRUBIN DIRECT ALPHA FETOPROTEIN BLOOD TUMOR MARKER HEPATITIS A ANTIBODY HEPATITIS B SURFACE ANTIBODY Referral to Med Nutrition Therapy EGD Coding Rationale New or est? Established Patient Total time spent on date of encounter: 40 minutes Highest problem complexity: 2 or more stable chronic illnesses Data review: Ordering of test(s): 1 unique test(s) ordered Suggested code: 35429 This visit has been a part of a consistent, comprehensive, and ongoing management of the chronic medical conditions(s) listed above for the patient. documented in this encounter Plan of Treatment Upcoming Encounters Date Type Department Care Team (Late st Contact Info) Description 02/17/2024 11:59 PM CDT Anesthesia Event [facility] MRI [address] [place] [phone] Pushpa Frey DO [id number] [facility] DEPT [address] [phone] 05/20/2024 12:30 PM DELIVERY ASSOCIATE Appointment [facility] MRI [address] [place] [phone] Steve Bedolla MD [address] [place] [phone] Scheduled Orders Name Type Priority Associated Diagnoses [...] chetna Non-react chetna 12/29/2023 2:13 PM CDT [facility] Comment: < 8 mIU/mL Hepatitis B surface Antibody (HBsAb). Nonreactive for HBsAb - individual is considered not immune to Hepatitis B Virus infection. Hepatitis B Surface Antibody Quantitative 0.3 <8.0 mIU/mL 12/29/2023 2:13 PM CDT [facility] Comment: Hepatitis B Surface Antibody Numeric Result Interpretation: ? Nonreactive: ?<8.0 mIU/mL ? Indeterminate: ??8.0 - 12.0 mIU/mL ? Reactive: ?>12.0 mIU/mL ? Blood BLOOD SPECIMEN / Unknown Lab Venipuncture / Unknown 12/29/2023 1:12 PM CDT 12/29/2023 1:26 PM CDT Steve Bedolla MD LAB - CHEMISTRY LIONEL WHITT Performing Organization Address City/[facility]/ZIP Co de Phone Number [facility] [address] [place] [address], [place] [phone] * HEPATITIS A ANTIBODY (12/29/2023 1:12 PM CDT) [facility] Hepatitis A Virus Antibody Total Negative Negative 12/31/2023 8:56 AM CDT [employer] ([facility]) Comment: Performed By: [employer] [address] [place] [address] Social Media Intern: Benny Desai MD, PhD CLIA Number: [id number] Blood BLOOD SPECIMEN / Unknown Lab Venipuncture / Unknown 12/29/2023 1:12 PM CDT 12/29/2023 1:26 PM CDT Steve Bedolla MD LAB - CHEMISTRY LIONEL WHITT Performing Organization Address [facility] Co de Phone Number [facility]) [address] [place] [phone] [place] [address] * ALPHA FETOPROTEIN BLOOD TUMOR MARKER (12/29/2023 1:12 PM CDT) [facility] Alpha-Fetoprote in Tumor Marker 2.2 <=8.3 ng/mL 12/29/2023 2:22 PM CDT [facility] Comment: AFP values will vary depending on testing procedure used. Results are not comparable across different methods. AFP values obtained by [facility] using an Phoenix Alinity Immunoassay. Blood BLOOD SPECIMEN / Unknown Lab Venipuncture / Unknown 12/29/2023 1:12 PM CDT 12/29/2023 1:36 PM CDT Steve Bedolla MD LAB - CHEMISTRY LIONEL WHITT Performing Organization Address City/[facility]/ZIP Co de Phone Number [facility] [address] [place] [phone], [place] [phone] * BILIRUBIN DIRECT (12/29/2023 1:12 PM CDT) Bilirubin Conjugated 0.5 0.1 - 0.5 mg/dL 12/29/2023 2:07 PM CDT [facility] Blood BLOOD SPECIMEN / Unknown Lab Venipuncture / Unknown 12/29/2023 1:12 PM CDT 12/29/2023 1:37 PM CDT Steve Bedolla MD LAB - CHEMISTRY ORDE RABLES Performing Organization Address City/[facility]/ZIP Co de Phone Number [facility] [address] [place] [address], [facility] [phone] * PT-INR [facility] (12/29/2023 1:12 PM CDT) Pathologist [facility] PT 13.9 12.1 - 14.8 Seconds 12/29/2023 2:29 PM CDT [facility] INR 1.1 See Comment 12/29/2023 2:29 PM CDT [facility] Comment:The suggested therap eutic range for standard coumadin (warfarin) therapy is an INR of 2.0-3.0. For high-risk patients (Mechanical Mitral Valve Prosthesis, etc.), the suggested prophylactic therapeutic range is an INR of 2.5-3.5. Blood BLOOD SPECIMEN / Unknown Lab Venipuncture / Unknown 12/29/2023 1:12 PM CDT 12/29/2023 1:26 PM CDT Steve Bedolla MD LAB - COAGULATION OR DERABLES Performing Organization Address City/[facility]/ZIP Co de Phone Number [facility] [address] [place] [address], [place] [phone] * (ABNORMAL) COMPREHENSIVE METABOLIC PANEL (12/29/2023 1:12 PM CDT) BUN 13 7 - 26 mg/dL 12/29/2023 2:07 PM CDT [facility] Creatinine 0.73 0.71 - 1.16 mg/dL 12/29/2023 2:07 PM [facility] Sodium 138 136 - 145 mmol/L 12/29/2023 2:07 PM [facility] Potassium 4.8(H) 3.5 - 4.5 mmol/L 12/29/2023 2:07 PM [facility] Chloride 105 98 - 107 mmol/L 12/29/2023 2:07 PM [facility] CO2 25 22 - 29 mmol/L 12/29/2023 2:07 PM [facility] Glucose 362(H) 70 - 115 mg/dL 12/29/2023 2:07 PM [facility] Calcium 9.8 8.4 - 10.2 mg/dL 12/29/2023 2:07 PM [facility] Protein Total 7.0 6.0 - 8.3 g/dL 12/29/2023 2:07 PM [facility] Albumin 3.7 3.4 - 5.0 g/dL 12/29/2023 2:07 PM [facility] Bilirubin Total 3.2(H) 0.2 - 1.2 mg/dL 12/29/2023 2:07 PM [facility] Alkaline Phosphatase 89 40 - 150 U/L 12/29/2023 2:07 PM [facility] ALT 16 5 - 55 U/L 12/29/2023 2:07 PM [facility] AST 23 5 - 34 U/L 12/29/2023 2:07 PM [facility] Anion Gap 8 6 - 16 12/29/2023 2:07 PM [facility] BUN/Creatinine Ratio 18 7 - 23 12/29/2023 2:07 PM [facility] Osmolality Calculated 301(H) 275 - 295 mOsm/kg 12/29/2023 2:07 PM [facility] Albumin/Globulin Ratio 1.1 1.1 - 2.3 12/29/2023 2:07 PM [facility] eGFR by CKD-EPI >90 >=90 mL/min/1.7 3 m2 12/29/2023 2:07 PM [facility] Blood BLOOD SPECIMEN / Unknown Lab Venipuncture / Unknown 12/29/2023 1:12 PM CDT 12/29/2023 1:37 PM CDT Steve Bedolla MD LAB - CHEMISTRY LIONEL WHITT [facility] Organization Address City/State/ZIP Co de Phone Number [facility] [address] [place] [address], [facility] [phone] * (ABNORMAL) CBC WITH DIFFERENTIAL (12/29/2023 1:12 PM CDT) WBC 4.2 4.0 - 10.7 x10E9/L 12/29/2023 1:52 PM [facility] RBC Count 5.58 4.30 - 5.80 x10E12/L 12/29/2023 1:52 PM [facility] Hemoglobin 15.8 13.3 - 17.5 g/dL 12/29/2023 1:52 PM [facility] Hematocrit 44.7 38.7 - 51.1 % 12/29/2023 1:52 PM [facility] MCV 80.1 80.0 - 98.0 fL 12/29/2023 1:52 PM [facility] MCH 28.3 26.7 - 33.6 pg 12/29/2023 1:52 PM [facility] MCHC 35.3 31.7 - 36.3 g/dL 12/29/2023 1:52 PM [facility] RDW-CV 18.2(H) 11.3 - 14.8 % 12/29/2023 1:52 PM [facility] Platelet Count 84(L) 150 - 420 x10E9/L 12/29/2023 1:52 PM [facility] MPV 10.0 7.8 - 11.4 fL 12/29/2023 1:52 PM [facility] Neutrophil % 68.4 41.0 - 74.0 % 12/29/2023 1:52 PM [facility] Lymphocyte % 17.5 17.0 - 47.0 % 12/29/2023 1:52 PM [facility] Monocyte % 9.2 3.0 - 11.0 % 12/29/2023 1:52 PM [facility] Eosinophil % 3.5 0.0 - 7.0 % 12/29/2023 1:52 PM [facility] Basophil % 1.2 0.0 - 1.6 % 12/29/2023 1:52 PM [facility] Immature Granulocytes % 0.2 0.0 - 1.0 % 12/29/2023 1:52 PM [facility] Neutrophil Absolute 2.89 1.60 - 7.50 x10E9/L 12/29/2023 1:52 PM [facility] Lymphocyte Absolute 0.74(L) 1.00 - 4.40 x10E9/L 12/29/2023 1:52 PM [facility] Monocyte Absolute 0.39 0.15 - 1.00 x10E9/L 12/29/2023 1:52 PM [facility] Eosinophil Absolute 0.15 0.00 - 0.60 x10E9/L 12/29/2023 1:52 PM [facility] Basophil Absolute 0.05 0.00 - 0.13 x10E9/L 12/29/2023 1:52 PM [facility] Blood BLOOD SPECIMEN / Unknown Lab Venipuncture / Unknown 12/29/2023 1:12 PM CDT 12/29/2023 1:36 PM CDT Steve Bedolla MD LAB - HEMATOLOGY ORD ERABLES [facility] [address] [place] [address], [facility] [phone] documented in this encounter Visit Diagnoses Diagnosis [...] (HCC) documented in this encounter Care Teams Community Health Promoter Relationship Specialty Start Date End Date Braydon Pavon PA [address] [place] [address] PCP - General Physician Casing In Line Setter 07/14/23 documented as of this encounter
--- OUTSIDE RECORDS SUMMARY | 2024-05-08 05:45 | XMS_ITS | Encounter Summary ---
Author Organization [facility] Address [facility]3 [facility] [place] [address] Care Team Providers Care Supervisor Stripping Name Role Phone Braydon Pavon Primary Care Provider [phone] Reason for Referral * (Routine) - Open Specialty Diagnoses / Procedures Referred By Contac t Referred To Contact Diagnoses Cirrhosis of liver without ascites, unspecified hepatic cirrhosis type (HCC) Procedures [id number] BLOOD Steve Bedolla MD [facility] [place] [address] Referral ID Status Reason Start Date Expiration Date Visits Re quested Visits Authorized [id number] Open 07/14/2023 07/13/2024 1 1 Reason for Visit * Reason Comments Cirrhosis Le * Evaluate & Treat (Routine) - Closed Specialty Diagnoses / Procedures Referred By Contact Referred To Contact Hepatology / Gastroenterology Diagnoses Nonalcoholic steatohepatitis (LE) 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 3l [address] [facility] [place] [address] Referral ID Status Reason Start Date Expiration Date V isits Requested Visits Authorized [id number] Closed Continuity of Care 06/20/2023 06/19/2024 1 1 Encounter Details Date Type Department Care Team (Latest Contact Info) Description 07/14/2023 2:30 PM CDT Office Visit [facility] - GI [address] [facility] [place] [address] Stvee Bedolla MD [address] [place] [address] Cirrhosis of liver without ascites, [...] the physicians and other specialists at the [facility] today. Following your visit, you [...] please call (hospital main number), ask the high reach operator to call the gastroenterology fellow or transplant fellow art education professor. Emergency: call 911 or go to your closest emergency room. We encourage you to use [employer] to send and receive messages and review your test results. Let us know if you need information on signing up for [employer]. More information about us and our services can be found on our websites at [email or web address] and [email or web address] 07/14/2023 The following information and instructions [...] at your PCP's office. Talk to your master police detective about getting on a more potent medications for Diabetes (Ozempic or Monjauro) Consider a Mediterranean diet. Ask to see a pipe and boiler covers supervisor locally Titrate lactulose to achieve 2-3 [...] find that it helps to have a circus trainer to provide guidance. 2. Eat healthy foods. Good advice on nutrition can be found on the website for the [place] Healthy Eating Pyramid. Either search for that on the internet or go to: http://www.[facility]/nutritionsource/thgn-leqtdj-lgb-eat/pyramid/ 3. Avoid fast foods and sugar sweetened [...] should limit your dose to no more [id number] mg daily. This means that you should [...] Bedolla MD - 07/14/2023 3:23 PM CDT [facility] Referring Provider: Riddhi [...] saw Mr. Curry in Liver Clinic at [facility] today for an initial visit to provide recommendations and/or treatment regarding cirrhosis. He is a 52 year old man who is accompanied by his and 2nd cousin. Liver Disease History: Previously followed by Dr. Kathryn Ellis and Dr. Elian Estrada at [facility] but insurance changed. History of GI bleed [...] a bus- had stiches went to a [employer] for his grandkids and nephews now. Does [...] updated and corrected these sections of his [facility] electronic health record based on my discussions with him and/orhis family members present at his visit today. Social History Social History Narrative Disabled. 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 Can also consider admission #Cirrhosis with portal HTN - Varices/Portal hypertensive bleeding: his most recent EGD still with varices. Will check TIPs, but given encephalopathy, likely cannot increase diameter of TIPS. We may need to put him on carvedilol - Ascites: none - PSE: present, on lactulose, have sent message to [employer] obtaining rifaximin (previously prescribed) - HCC: see [...] use - advised him to see a pipe and boiler covers supervisor - discussed limiting simple carbohydrates Patient [...] your PCP's office. ? Talk to your master police detective about getting on a more potent medications for Diabetes (Ozempic or Monjauro) ? Consider a Mediterranean diet. Ask to see a pipe and boiler covers supervisor locally ? Titrate lactulose to achieve [...] routed to: Address letter to: Riddhi Bello [address] [place] [address] Copy to: SONALI Kunz [address] [facility] [address] Orders Placed This Encounter ??? CBC WITH DIFFERENTIAL ??? COMPREHENSIVE METABOLIC PANEL ??? PT-INR [facility] ??? BILIRUBIN DIRECT ??? ALPHA FETOPROTEIN BLOOD TUMOR MARKER ??? NILE BLOOD SCREEN W/REFLEX TITER ??? FERRITIN ??? IRON + TRANSFERRIN PANEL ??? [id number] BLOOD Coding Rationale New or est? New Patient Total time spent on date of encounter: 80 minutes Highest problem complexity: 1 or more chronic illnesses with exacerbation, progression, or side effects of treatment Suggested code: 86505 Prolonged services code (non-Medicare): 38439 x 1 Prolonged services code (Medicare): does not meet Medicare criteria for prolonged services coding documented in this encounter Plan of Treatment Upcoming Encounters Date Type Department Care Team (Late st Contact Info) Description 02/17/2024 11:59 PM CDT Anesthesia Event [facility] MRI [address] [place] [phone] Pushpa Frey, DO [address] [facility] [address] [phone] 05/20/2024 12:30 PM DUMPLING MACHINE OPERATOR Appointment [facility] MRI [address] [place] [address] Steve Bedolla MD [address] [place] [address] documented as of this encounter [...] documented as of this encounter Results * [id number]-[id number] BLOOD (07/14/2023 4:58 PM CDT) Gjckr-6-Ckqfev ypsin 182 90 - 200 mg/dL 07/14/2023 5:40 PM CDT [facility] Blood BLOOD SPECIMEN / Unknown Lab Venipuncture / Unknown 07/14/2023 4:58 PM CDT 07/14/2023 5:15 PM CDT Steve Bedolla MD LAB - CHEMISTRY [facility] Organization Address City/State/ZIP Co de Phone Number [facility] [address] [place] [address], [facility] [phone] * IRON + TRANSFERRIN PANEL (07/14/2023 4:58 PM CDT) Iron 118 50 - 175 ug/dL 07/14/2023 5:39 PM CDT [facility] Transferrin 309 174 - 382 mg/dL 07/14/2023 5:39 PM CDT [facility] Transferrin Saturation % 31 16 - 50 % 07/14/2023 5:39 PM CDT [facility] TIBC Calculated 386 240 - 450 ug/dL 07/14/2023 5:39 PM CDT [facility] Blood BLOOD SPECIMEN / Unknown Lab Venipuncture / Unknown 07/14/2023 4:58 PM CDT 07/14/2023 5:15 PM CDT Steve Bedolla MD LAB - CHEMISTRY [facility] [address] [address], [facility] [phone] * FERRITIN (07/14/2023 4:58 PM CDT) Pathologist [facility] Ferritin 71 22 - 275 ng/mL 07/14/2023 5:58 PM CDT [facility] Blood BLOOD SPECIMEN / Unknown Lab Venipuncture / Unknown 07/14/2023 4:58 PM CDT 07/14/2023 5:15 PM CDT Steve Bedolla MD LAB - CHEMISTRY [facility] Performing Organization Address City/[facility]/ZIP Co de Phone Number [address] [address], [place] [phone] * NILE BLOOD SCREEN W/REFLEX TITER (07/14/2023 4:58 PM CDT) Pathologist [facility] NILE IgG None Detected None Detected 07/16/2023 10:11 PM CDT [facility] ([facility]) Comment: If suspicion of connective tissue disease is strong and NILE EIA is negative, consider testing for NILE by IFA ([id number]). INTERPRETIVE INFORMATION: Anti-Nuclear Antibodies (NILE), IgG by RAMOS Antinuclear Antibodies (NILE), IgG by RAMOS: NILE specimens are screened using enzyme-linked immunosorbent assay (RAMOS) methodology. All RAMOS results reported as Detected are further tested by indirect fluorescent assay (IFA) using HEp-2 substrate with an IgG-specific conjugate. The NILE RAMOS screen is designed to detect antibodies against dsDNA, histones, SS-A (Ro), SS-B (La), Mclean, Mclean/MILK DRIVER, Scl-70, Evelina-1, centromeric proteins, other antigens extracted from the HEp-2 cell nucleus. NILE RAMOS assays have been reported to have lower sensitivities than NILE IFA for systemic autoimmune rheumatic diseases (SARD). Negative results do not necessarily rule out SARD. Performed By: [employer] [address] [place] [address] X Ray Tech: Benny Desai MD, PhD CLIA Number: [id number] Blood BLOOD SPECIMEN / Unknown Lab Venipuncture / Unknown 07/14/2023 4:58 PM CDT 07/14/2023 5:15 PM CDT Steve Bedolla MD LAB - CHEMISTRY [facility] Performing Organization Address City/[facility]/ZIP Co de Phone Number [phone] ([facility]) [address] [place], [place] [address] * ALPHA FETOPROTEIN BLOOD TUMOR MARKER (07/14/2023 4:58 PM CDT) Pathologist [facility] Alpha-Fetoprote in Tumor Marker <2.0 <=8.3 ng/mL 07/14/2023 6:11 PM CDT [facility] Comment: AFP values will vary depending on testing procedure used. Results are not comparable across different methods. AFP values obtained by [facility] using an [place] Alinity Immunoassay. Blood BLOOD SPECIMEN / Unknown Lab Venipuncture / Unknown 07/14/2023 4:58 PM CDT 07/14/2023 5:21 PM CDT Steve Bedolla MD LAB - CHEMISTRY [facility] Performing Organization Address City/[facility]/ZIP Co de Phone Number [address] [address], [facility] [phone] * BILIRUBIN DIRECT (07/14/2023 4:58 PM CDT) Pathologist [facility] Bilirubin Conjugated 0.5 0.1 - 0.5 mg/dL 07/14/2023 5:50 PM CDT [facility] Blood BLOOD SPECIMEN / Unknown Lab Venipuncture / Unknown 07/14/2023 4:58 PM CDT 07/14/2023 5:21 PM CDT Steve Bedolla MD LAB - CHEMISTRY [facility]EL WHITT [facility] [address] [place] [address], [facility] [phone] * (ABNORMAL) PT-INR [facility] (07/14/2023 4:58 PM CDT) Pathologist [facility] PT 14.9(H) 12.1 - 14.8 Seconds 07/14/2023 5:59 PM CDT [facility] INR 1.2 See Comment 07/14/2023 5:59 PM CDT [facility] Comment:The suggested therap eutic range for standard coumadin (warfarin) therapy is an INR of 2.0-3.0. For high-risk patients (Mechanical Mitral Valve Prosthesis, etc.), the suggested prophylactic therapeutic range is an INR of 2.5-3.5. Blood BLOOD SPECIMEN / Unknown Lab Venipuncture / Unknown 07/14/2023 4:58 PM CDT 07/14/2023 5:15 PM CDT Steve Bedolla MD LAB - COAGULATION OR DERABLES Performing Organization Address [facility] Co de Phone Number [address] [address], [facility] [phone] * (ABNORMAL) COMPREHENSIVE METABOLIC PANEL (07/14/2023 4:58 PM CDT) Pathologist [facility] BUN 13 7 - 26 mg/dL 07/14/2023 5:50 PM CDT [facility] Creatinine 0.74 0.71 - 1.16 mg/dL 07/14/2023 5:50 PM CDT [facility] Sodium 135(L) 136 - 145 mmol/L 07/14/2023 5:50 PM CDT [facility] Potassium 4.1 3.5 - 4.5 mmol/L 07/14/2023 5:50 PM CDT [facility] Chloride 99 98 - 107 mmol/L 07/14/2023 5:50 PM CDT [facility] CO2 24 22 - 29 mmol/L 07/14/2023 5:50 PM CDT [facility] Glucose 343(H) 70 - 115 mg/dL 07/14/2023 5:50 PM [facility] Calcium 9.9 8.4 - 10.2 mg/dL 07/14/2023 5:50 PM [facility] Protein Total 7.4 6.0 - 8.3 g/dL 07/14/2023 5:50 PM [facility] Albumin 3.8 3.4 - 5.0 g/dL 07/14/2023 5:50 PM [facility] Bilirubin Total 4.8(H) 0.2 - 1.2 mg/dL 07/14/2023 5:50 PM [facility] Alkaline Phosphatase 112 40 - 150 U/L 07/14/2023 5:50 PM [facility] ALT 13 5 - 55 U/L 07/14/2023 5:50 PM [facility] AST 18 5 - 34 U/L 07/14/2023 5:50 PM [facility] Anion Gap 12 6 - 16 07/14/2023 5:50 PM [facility] BUN/Creatinine Ratio 18 7 - 23 07/14/2023 5:50 PM [facility] Osmolality Calculated 294 275 - 295 mOsm/kg 07/14/2023 5:50 PM [facility] Albumin/Globulin Ratio 1.1 1.1 - 2.3 07/14/2023 5:50 PM [facility] eGFR by CKD-EPI >90 >=90 mL/min/1.7 3 m2 07/14/2023 5:50 PM [facility] Blood BLOOD SPECIMEN / Unknown Lab Venipuncture / Unknown 07/14/2023 4:58 PM CDT 07/14/2023 5:21 PM CDT Steve Bedolla MD LAB - CHEMISTRY [facility] Organization Address City/State/ZIP Co de Phone Number [facility] [address] [place] [address], [facility] [phone] * (ABNORMAL) CBC WITH DIFFERENTIAL (07/14/2023 4:58 PM CDT) WBC 7.2 4.0 - 10.7 x10E9/L 07/14/2023 5:32 PM [facility] RBC Count 5.81(H) 4.30 - 5.80 x10E12/L 07/14/2023 5:32 PM [facility] Hemoglobin 15.2 13.3 - 17.5 g/dL 07/14/2023 5:32 PM [facility] Hematocrit 43.7 38.7 - 51.1 % 07/14/2023 5:32 PM [facility] MCV 75.2(L) 80.0 - 98.0 fL 07/14/2023 5:32 PM [facility] MCH 26.2(L) 26.7 - 33.6 pg 07/14/2023 5:32 PM [facility] MCHC 34.8 31.7 - 36.3 g/dL 07/14/2023 5:32 PM [facility] RDW-CV 18.6(H) 11.3 - 14.8 % 07/14/2023 5:32 PM [facility] Platelet Count 109(L) 150 - 420 x10E9/L 07/14/2023 5:32 PM [facility] MPV 10.5 7.8 - 11.4 fL 07/14/2023 5:32 PM [facility] Neutrophil % 71.1 41.0 - 74.0 % 07/14/2023 5:32 PM [facility] Lymphocyte % 15.5(L) 17.0 - 47.0 % 07/14/2023 5:32 PM [facility] Monocyte % 10.2 3.0 - 11.0 % 07/14/2023 5:32 PM [facility] Eosinophil % 1.9 0.0 - 7.0 % 07/14/2023 5:32 PM [facility] Basophil % 1.0 0.0 - 1.6 % 07/14/2023 5:32 PM [facility] Immature Granulocytes % 0.3 0.0 - 1.0 % 07/14/2023 5:32 PM [facility] Neutrophil Absolute 5.15 1.60 - 7.50 x10E9/L 07/14/2023 5:32 PM CDT [facility] Lymphocyte Absolute 1.12 1.00 - 4.40 x10E9/L 07/14/2023 5:32 PM CDT [facility] Monocyte Absolute 0.74 0.15 - 1.00 x10E9/L 07/14/2023 5:32 PM CDT [facility] Eosinophil Absolute 0.14 0.00 - 0.60 x10E9/L 07/14/2023 5:32 PM CDT [facility] Basophil Absolute 0.07 0.00 - 0.13 x10E9/L 07/14/2023 5:32 PM CDT [facility] Blood BLOOD SPECIMEN / Unknown Lab Venipuncture / Unknown 07/14/2023 4:58 PM CDT 07/14/2023 5:22 PM CDT Steve Bedolla MD LAB - HEMATOLOGY ORD ERABLES [facility] [address] [place] [address], [facility] [phone] documented in this encounter Visit Diagnoses Diagnosis [...] liver documented in this encounter Care Teams Supervisor Stripping Relationship Specialty Start Date End Date Braydon Pavon PA [address] [place] [address] PCP - General Physician Automatic Casting Machine Operator 07/14/23 documented as of this encounter
--- OUTSIDE RECORDS SUMMARY | 2024-05-08 05:45 | XMS_ITS | Encounter Summary ---
Author Organization [facility] Address [address] [facility] [place] [address] Care Team Providers Care Track Service Person Name Role Phone Nikolay Lancaster MD Primary Care Provider [phone] Encounter Details Date Type Department Care Team (Late Contact Info) Description 10/25/2018 Orders Only [facility] Endocr[facility]ology, Diabetes and Metabolism [address] [place] [address] Edmond Choi MD [address] [place] [address] Social History Tobacco Use Types Packs/Day Years [...] Description 02/17/2024 11:59 PM CDT Anesthesia Event [facility] MRI [address] [place] [phone] Pushpa Frey DO [address] [facility] [address] [phone] 05/20/2024 12:30 PM HIGH SCHOOL SCIENCE TUTOR Appointment [facility] MRI [address] [place] [address] Steve Bedolla MD [address] [place] [address] documented as of this encounter Visit Diagnoses Not on filedocumented in this encounter Care Teams Track Service Person Relationship Specialty Start Date End Date Nikolay Lancaster MD [address] [place] [address] PCP - General 10/04/18 07/13/23 documented as of this encounter
--- OUTSIDE RECORDS SUMMARY | 2024-05-08 05:45 | XMS_ITS | Encounter Summary ---
Author Organization [facility] Address [facility] [place] [address] Care Team Providers Care Supervisor Paper Coating Name Role Phone Braydon Pavon Primary Care Provider [phone] Nikolay Lancaster MD Primary Care Provider [phone] Braydon Pavon Primary Care Provider [phone] Reason for Visit * Reason Onset Date Comments MEDICATION REFILL 09/08/2018 Encounter Details Date Type Department Care Team (Late Contact Info) Description 09/08/2018 Refill [facility]ology [address] [facility] [place] [address] Edmond Choi MD [address] [place] [address] MEDICATION REFILL Social History Tobacco Use Types [...] Description 02/17/2024 11:59 PM CDT Anesthesia Event [facility] MRI [address] [place] [phone] Pushpa Frey, DO [address] [facility] [address] [address] 05/20/2024 12:30 PM HAND SEWER SHOES Appointment [facility] MRI [address] [place] [phone] Steve Bedolla MD [address] [place] [address] documented as of this encounter Visit Diagnoses Not on filedocumented in this encounter Care Teams Supervisor Paper Coating Relationship Specialty Start Date End Date Braydon Pavon PA [address] [place] [address] PCP - General Physician Radiology Rn 05/19/18 10/03/18 Nikolay Lancaster MD [address] [place] [address] PCP - General 10/04/18 07/13/23 Braydon Pavon PA [address] [place] [address] PCP - General Physician Radiology Rn 07/14/23 documented as of this encounter
--- OUTSIDE RECORDS SUMMARY | 2024-05-08 05:45 | XMS_ITS | Encounter Summary ---
Author Organization [facility] Address [address] [facility] [place] [address] Care Team Providers Care Psychotherapist Social Worker Name Role Phone Braydon Pavon Primary Care Provider [phone] Encounter Details Date Type Department Care Team [...] Description 02/17/2024 11:59 PM CDT Anesthesia Event [facility] MRI [address] [place] [phone] Pushpa Frey, DO [address] [facility] [address] [phone] 05/20/2024 12:30 PM INVESTMENT BANKER Appointment [facility] MRI [address] [place] [address] Steve Bedolla MD [address] [place] [address] documented as of this encounter [...] on filedocumented in this encounter Care Teams Psychotherapist Social Worker Relationship Specialty Start Date End Date Braydon Pavon PA [address] [place] [address] PCP - General Physician Dish Technician 07/14/23 documented as of this encounter
--- OUTSIDE RECORDS SUMMARY | 2024-05-08 05:45 | XMS_ITS | Encounter Summary ---
Author Organization [facility] Address [address] [facility] [place] [address] Care Team Providers Care Dishwasher Preparer Name Role Phone Braydon Pavon Primary Care Provider [phone] Encounter Details Date Type Department Care Team (Late Contact Info) Description 06/08/2018 Orders Only [facility] GI [address] [place] [address] Aleksandr Fink MD [address] [place] [address] S/P TIPS (transjugular intrahepatic portosystemic shunt) Social [...] Anesthesia Event [facility] MRI [address] [place] [phone] Pushpa Frey DO [address] [phone] 05/20/2024 12:30 PM ICE CREAM TRUCK DRIVER Appointment [facility] MRI [address] [place] [address] Steve Bedolla MD [address] [place] [address] documented as of this encounter Visit Diagnoses Diagnosis S/P TIPS (transjugular intrahepatic portosystemic shunt)- Primary Other postprocedural status documented in this encounter Care Teams Dishwasher Preparer Relationship Specialty Start Date End Date Braydon Pavon PA [address] [place] [address] PCP - General Physician Physical Laboratory Assistant 05/19/18 10/03/18 documented as of this encounter
--- OUTSIDE RECORDS SUMMARY | 2024-05-08 05:45 | XMS_ITS | Encounter Summary ---
Author Organization [facility] Address [facility] [place] [address] Care Team Providers Care Sewer Bricklayer Name Role Phone Braydon Pavon Primary Care Provider [phone] Reason for Visit * Auth/Cert (Routine) Specialty Diagnoses / Procedures Referred By Contac t Referred To Contact Diagnoses Cirrhosis of liver without ascites, unspecified hepatic cirrhosis type (HCC) Procedures [facility] ED EGD FLEX TRANSORAL DX EGD w/ agbim ESOPHAGOGASTRODUODENOSCOPY (EGD) DIAGNOSTIC Referral ID Status Reason Start Date Expiration Date Visits Re quested Visits Authorized [id number] 1 1 Encounter Details Date Type Department Care Team (Late st Contact Info) Description 02/12/2024 1:52 PM CDT Anesthesia Event [facility] ENDOSCOPY [address] [place] [address] [place] [address] [place] [phone] Catherine Lopez MD [address] [place] [address] Anesthesia Record Procedure Summary Procedure Name Responsible [...] Brianna Lopez RN 02/12/24 1443 by Trice Fletchre RN documented in this encounter Social History [...] Anesthetic Plan was discussed with the anesthesiologist esol teacher assistant and [employer] PSYCHOLOGY FACULTY MEMBER. Overall additional findings/comments: Blood sugar elevated, insulin [...] Laterality Date ENDOSCOPY, UPPER IR TIPS PROCEDURE ACCOUNT EXECUTIVE KEY ACCOUNTS Status: No LMP for male patient. unknown [...] Description 02/17/2024 11:59 PM CDT Anesthesia Event [facility] MRI [address] [place] [phone] Pushpa Frey DO [address] [facility] [address] [phone] 05/20/2024 12:30 PM COMMUNITY ORGANIZATION WORKER Appointment [facility] MRI [address] [place] [address] Steve Bedolla MD [address] [place] [address] documented as of this encounter Goals Goal [...] mg documented in this encounter Care Teams Sewer Bricklayer Relationship Specialty Start Date End Date Braydon Pavon PA [address] [place] [address] PCP - General Physician Analysis Evaluator 07/14/23 documented as of this encounter
--- OUTSIDE RECORDS SUMMARY | 2024-05-08 05:45 | XMS_ITS | Encounter Summary ---
Author Organization [facility] Address [facility] [place] [address] Care Team Providers Care Director Drug Safety Name Role Phone Braydon Pavon Primary Care Provider [phone] Reason for Visit * Auth/Cert (Routine) Specialty Diagnoses / Procedures Referred By Contac t Referred To Contact Diagnoses Cirrhosis of liver without ascites, unspecified hepatic cirrhosis type (HCC) Procedures [place] ED EGD FLEX TRANSORAL DX EGD w/ agbim ESOPHAGOGASTRODUODENOSCOPY (EGD) DIAGNOSTIC Referral ID Status Reason Start Date Expiration Date Visits Re quested Visits Authorized [id number] 1 1 Encounter Details Date Type Department Care Team (Latest Contact Info) Description 02/12/2024 11:04 AM CDT - 02/12/2024 2:45 PM CDT Hospital Encounter [facility] OP [address] [place] [address] Steve Bedolla MD [address] [place] [phone] Surgery General Discharge Disposition: Home or Self [...] ask them during your visits. ?? Copyright [employer] 2020 Information is for End User's use only and may not be sold, redistributed or otherwise used for commercial purposes. All illustrations and images included in CareNotes?? are the copyrighted property of [employer] or [employer] The above information is an learning support aide only. It is not intended as medical [...] file Social History Narrative Disabled. 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 [employer] Resource Strain: Not on file Food [...] to engaging gainful employment for short or rn long term care and even leading to permanent disability and/or [...] changes Gaby Mistry MD Gastroenterology & Hepatology [facility] documented in this encounter Plan of Treatment Upcoming Encounters Date Type Department Care Team (Late st Contact Info) Description 02/17/2024 11:59 PM CDT Anesthesia Event [facility] MRI [address] [place] [phone] Pushpa Frey DO [address] [facility] [address] [phone] 05/20/2024 12:30 PM LOCOMOTIVE MECHANIC APPRENTICE Appointment [facility] MRI [address] [place] [phone] Steve Bedolla MD [address] [place] [phone] documented as of this encounter Goals Goal Patient Goal Type Associated Problems Recent Progress Patient-Stated? Author Medication Management General On track( 024 3:12 PM CDT) Yoly Lny RN Note: Expected end date: ongoing Interventions: Take all medications as prescribed Let your doctor know right away about any changes in your medications Make sure to request a refill of your medication at least one week prior to your last dose documented as of this encounter Procedures Procedure Name Priority Date/Time Associated Diagnosis Comments [place] ED EGD FLEX TRANSORAL DX 02/12/2024 1:47 PM CDT Cirrhosis of liver without ascites, unspecified hepatic cirrhosis type (HCC) Special Needs Message Received: Yesterday Steve Bedolla MD P [facility] Schedulers - Endoscopy Pool Please set [...] Procedure Code(s): ? --- Professional --- ? 22605, Esophagogastroduo denoscopy, flexible, transoral; diagnostic, ? including collection of specimen(s) by brushing or washing, when ? performed (separate procedure) Diagnosis Code(s): ?--- Professional --- ?I85.00, Esophageal varices without bleeding ?K22.89, Other specified disease of esophagus ?K76.6, Portal hypertension ?K31.89, Other diseases of stomach and duodenum ?K31.7, Polyp of stomach and duodenum CPT copyright 2021 [employer]. All rights reserved. The codes documented in this report are preliminary and upon derrick helper review may be revised to meet current compliance requirements. Gaby Mistry MD 02/12/2024 2:13:14 PM This report has been signed electronically. Note Initiated On: 02/12/2024 1:40 PM Number of Addenda: 0 ? [facility] ? [address] [place], [place] [id number] [place] [address] PROVATION 02/12/2024 1:40 PM CDT Gaby Mistry MD GI PROCEDURE ORDERAB LES [facility] PROVATION * (ABNORMAL) GLUCOSE - POINT OF CARE (02/12/2024 1:17 PM CDT) Glucose WB/POC 277(H) 70 - 115 mg/dL 02/12/2024 1:18 PM CDT [facility] Specimen Type Cap Fingerstick 2023 1:18 PM CDT [facility] Blood BLOOD SPECIMEN / Unknown 02/12/2024 1:17 PM CDT 02/12/2024 1:18 PM CDT Steve Bedolla MD LAB - POINT OF CARE ORDERABLES Performing Organization Address City/[facility]/ZIP Co de Phone Number [facility] [address] [place] [address], [facility] [phone] * (ABNORMAL) GLUCOSE - POINT OF CARE (02/12/2024 11:47 AM CDT) Glucose WB/POC 342(H) 70 - 115 mg/dL 02/12/2024 11:49 AM CDT [facility] Specimen Type Venous 02/12/2024 11:49 AM CDT [facility] Blood BLOOD SPECIMEN / Unknown 02/12/2024 11:47 AM CDT 02/12/2024 11:49 AM CDT Steve Bedolla MD LAB - POINT OF CARE ORDERABLES [address] [address], [facility] [phone] documented in this encounter Visit Diagnoses Not [...] RN) documented in this encounter Care Teams Director Drug Safety Relationship Specialty Start Date End Date Braydon Pavon PA [address] [place] [address] PCP - General Physician Product Engineering Manager 07/14/23 documented as of this encounter
--- OUTSIDE RECORDS SUMMARY | 2024-05-08 05:45 | XMS_ITS | Patient Health Summary ---
Author Organization [facility] Address [address] [place] [address] Care Team Providers Care Submersible Pilot Name Role Phone Braydon Pavon Primary Care Provider [phone] Note from [facility][note 2],non-owned Affiliates and Associated Physician Practices is amultiple site organization consisting of ambulatory clinics and hospital sitesin [place], [place], [place] and [place]. This disclosure is being madepursuant to the Care Everywhere program and may not contain all information available regarding this patient. Last updated 18.[facility] Allergies * Aztreonam In Dextrose(Urticaria) -Medium [...] 33.6 02/16/2024 1:51 PM CDT Procedures * [facility] ED EGD FLEX TRANSORAL DX(Performed 02/12/2024) Performed [...] (transjugular intrahepatic portosystemic shunt), Fatty liver * [id number] BLOOD(Performed 07/14/2023) Performed for Cirrhosis of liver [...] Procedure Code(s): ? --- Professional --- ? 57703, Esophagogastroduo denoscopy, flexible, transoral; diagnostic, ? including collection of specimen(s) by brushing or washing, when ? performed (separate procedure) Diagnosis Code(s): ?--- Professional --- ?I85.00, Esophageal varices without bleeding ?K22.89, Other specified disease of esophagus ?K76.6, Portal hypertension ?K31.89, Other diseases of stomach and duodenum ?K31.7, Polyp of stomach and duodenum CPT copyright 2021 [employer]. All rights reserved. The codes documented in this report are preliminary and upon death clearance coordinator review may be revised to meet current compliance requirements. Gaby Mistry MD 02/12/2024 2:13:14 PM This report has been signed electronically. Note Initiated On: 02/12/2024 1:40 PM Number of Addenda: 0 ? [facility] ? [address] 02/12/2024 1:40 PM CDT Gaby Mistry MD GI PROCEDURE ORDERAB LES [facility] PROVATION * (ABNORMAL) GLUCOSE - POINT OF CARE (02/12/2024 1:17 PM CDT) Only the most recent of2 resultswithin the time period is included. Glucose WB/POC 277(H) 70 - 115 mg/dL 02/12/2024 1:18 PM CDT [facility] Specimen Type Cap Fingerstick 2023 1:18 PM CDT [facility] Blood BLOOD SPECIMEN / Unknown 02/12/2024 1:17 PM CDT 02/12/2024 1:18 PM CDT Steve Bedolla MD LAB - POINT OF CARE ORDERABLES Performing Organization Address City/[facility] Co de Phone Number [address] [address], [facility] [phone] * PT-INR [facility] (12/29/2023 1:12 PM CDT) Only the most recent of2 resultswithin the time period is included. Pathologist [facility] PT 13.9 12.1 - 14.8 Seconds 12/29/2023 2:29 PM CDT [facility] INR 1.1 See Comment 12/29/2023 2:29 PM CDT [facility] Comment:The suggested therap eutic range for standard coumadin (warfarin) therapy is an INR of 2.0-3.0. For high-risk patients (Mechanical Mitral Valve Prosthesis, etc.), the suggested prophylactic therapeutic range is an INR of 2.5-3.5. Blood BLOOD SPECIMEN / Unknown Lab Venipuncture / Unknown 12/29/2023 1:12 PM CDT 12/29/2023 1:26 PM CDT Steve Bedolla MD LAB - COAGULATION OR DERABLES Performing Organization Address City/[facility] Co de Phone Number [address] [address], [facility] [phone] * ALPHA FETOPROTEIN BLOOD TUMOR MARKER (12/29/2023 1:12 PM CDT) Only the most recent of2 resultswithin the time period is included. Pathologist [facility] Alpha-Fetoprote in Tumor Marker 2.2 <=8.3 ng/mL 12/29/2023 2:22 PM CDT [facility] Comment: AFP values will vary depending on testing procedure used. Results are not comparable across different methods. AFP values obtained by [facility] using an Phoenix Alinity Immunoassay. Blood BLOOD SPECIMEN / Unknown Lab Venipuncture / Unknown 12/29/2023 1:12 PM CDT 12/29/2023 1:36 PM CDT Steve Bedolla MD LAB - CHEMISTRY LIONEL WHITT [facility] Organization Address City/State/ZIP Co de Phone Number [facility] [address] [place] [address], [facility] [phone] * (ABNORMAL) CBC WITH DIFFERENTIAL (12/29/2023 1:12 PM CDT) Only the most recent of2 resultswithin the time period is included. WBC 4.2 4.0 - 10.7 x10E9/L 12/29/2023 1:52 PM [facility] RBC Count 5.58 4.30 - 5.80 x10E12/L 12/29/2023 1:52 PM [facility] Hemoglobin 15.8 13.3 - 17.5 g/dL 12/29/2023 1:52 PM [facility] Hematocrit 44.7 38.7 - 51.1 % 12/29/2023 1:52 PM [facility] MCV 80.1 80.0 - 98.0 fL 12/29/2023 1:52 PM [facility] MCH 28.3 26.7 - 33.6 pg 12/29/2023 1:52 PM [facility] MCHC 35.3 31.7 - 36.3 g/dL 12/29/2023 1:52 PM [facility] RDW-CV 18.2(H) 11.3 - 14.8 % 12/29/2023 1:52 PM [facility] Platelet Count 84(L) 150 - 420 x10E9/L 12/29/2023 1:52 PM [facility] MPV 10.0 7.8 - 11.4 fL 12/29/2023 1:52 PM [facility] Neutrophil % 68.4 41.0 - 74.0 % 12/29/2023 1:52 PM [facility] Lymphocyte % 17.5 17.0 - 47.0 % 12/29/2023 1:52 PM CDT [facility] Monocyte % 9.2 3.0 - 11.0 % 12/29/2023 1:52 PM T [facility] Eosinophil % 3.5 0.0 - 7.0 % 12/29/2023 1:52 PM T [facility] Basophil % 1.2 0.0 - 1.6 % 12/29/2023 1:52 PM T [facility] Immature Granulocytes % 0.2 0.0 - 1.0 % 12/29/2023 1:52 PM [facility] Neutrophil Absolute 2.89 1.60 - 7.50 x10E9/L 12/29/2023 1:52 PM [facility] Lymphocyte Absolute 0.74(L) 1.00 - 4.40 x10E9/L 12/29/2023 1:52 PM [facility] Monocyte Absolute 0.39 0.15 - 1.00 x10E9/L 12/29/2023 1:52 PM [facility] Eosinophil Absolute 0.15 0.00 - 0.60 x10E9/L 12/29/2023 1:52 PM [facility] Basophil Absolute 0.05 0.00 - 0.13 x10E9/L 12/29/2023 1:52 PM [facility] Blood BLOOD SPECIMEN / Unknown Lab Venipuncture / Unknown 12/29/2023 1:12 PM CDT 12/29/2023 1:36 PM CDT Steve Bedolla MD LAB - HEMATOLOGY ORD ERABLES [facility] [address] [place] [address], [facility] [phone] * (ABNORMAL) COMPREHENSIVE METABOLIC PANEL (12/29/2023 1:12 PM CDT) Only the most recent of2 resultswithin the time period is included. BUN 13 7 - 26 mg/dL 12/29/2023 2:07 PM T [facility] Creatinine 0.73 0.71 - 1.16 mg/dL 12/29/2023 2:07 PM [facility] Sodium 138 136 - 145 mmol/L 12/29/2023 2:07 PM [facility] Potassium 4.8(H) 3.5 - 4.5 mmol/L 12/29/2023 2:07 PM [facility] Chloride 105 98 - 107 mmol/L 12/29/2023 2:07 PM [facility] CO2 25 22 - 29 mmol/L 12/29/2023 2:07 PM [facility] Glucose 362(H) 70 - 115 mg/dL 12/29/2023 2:07 PM [facility] Calcium 9.8 8.4 - 10.2 mg/dL 12/29/2023 2:07 PM [facility] Protein Total 7.0 6.0 - 8.3 g/dL 12/29/2023 2:07 PM [facility] Albumin 3.7 3.4 - 5.0 g/dL 12/29/2023 2:07 PM [facility] Bilirubin Total 3.2(H) 0.2 - 1.2 mg/dL 12/29/2023 2:07 PM [facility] Alkaline Phosphatase 89 40 - 150 U/L 12/29/2023 2:07 PM [facility] ALT 16 5 - 55 U/L 12/29/2023 2:07 PM [facility] AST 23 5 - 34 U/L 12/29/2023 2:07 PM [facility] Anion Gap 8 6 - 16 12/29/2023 2:07 PM [facility] BUN/Creatinine Ratio 18 7 - 23 12/29/2023 2:07 PM [facility] Osmolality Calculated 301(H) 275 - 295 mOsm/kg 12/29/2023 2:07 PM [facility] Albumin/Globulin Ratio 1.1 1.1 - 2.3 12/29/2023 2:07 PM [facility] eGFR by CKD-EPI >90 >=90 mL/min/1.7 3 m2 12/29/2023 2:07 PM [facility] Blood BLOOD SPECIMEN / Unknown Lab Venipuncture / Unknown 12/29/2023 1:12 PM CDT 12/29/2023 1:37 PM CDT Steve Bedolla MD LAB - CHEMISTRY LIONEL WHITT Performing Organization Address [facility] Co de Phone Number [facility] [address] [place] [address], [facility] [phone] * HEPATITIS B SURFACE ANTIBODY (12/29/2023 1:12 PM CDT) Pathologist [facility] Hepatitis B Virus Surface Antibody Non-react chetna Non-react chetna 12/29/2023 2:13 PM CDT [facility] Comment: < 8 mIU/mL Hepatitis B surface Antibody (HBsAb). Nonreactive for HBsAb - individual is considered not immune to Hepatitis B Virus infection. Hepatitis B Surface Antibody Quantitative 0.3 <8.0 mIU/mL 12/29/2023 2:13 PM CDT [facility] Comment: Hepatitis B Surface Antibody Numeric Result Interpretation: ? Nonreactive: ?<8.0 mIU/mL ? Indeterminate: ??8.0 - 12.0 mIU/mL ? Reactive: ?>12.0 mIU/mL ? Blood BLOOD SPECIMEN / Unknown Lab Venipuncture / Unknown 12/29/2023 1:12 PM CDT 12/29/2023 1:26 PM CDT Steve Bedolla MD LAB - CHEMISTRY LIONEL WHITT Performing Organization Address City/[facility]/ZIP Co de Phone Number [facility] [address] [place] [address], [facility] [phone] * BILIRUBIN DIRECT (12/29/2023 1:12 PM CDT) Only the most recent of2 resultswithin the time period is included. Bilirubin Conjugated 0.5 0.1 - 0.5 mg/dL 12/29/2023 2:07 PM CDT [facility] Blood BLOOD SPECIMEN / Unknown Lab Venipuncture / Unknown 12/29/2023 1:12 PM CDT 12/29/2023 1:37 PM CDT Steve Bedolla MD LAB - CHEMISTRY LIONEL WHITT [facility] [address] [address], [facility] [phone] * HEPATITIS A ANTIBODY (12/29/2023 1:12 PM CDT) Hepatitis A Virus Antibody Total Negative Negative 12/31/2023 8:56 AM CDT [facility] ([facility]) Comment: Performed By: [facility] [address] [place] [address] Chair Inspector: Benny Desai MD, PhD CLIA Number: [id number] Blood BLOOD SPECIMEN / Unknown Lab Venipuncture / Unknown 12/29/2023 1:12 PM CDT 12/29/2023 1:26 PM CDT Steve Bedolla MD LAB - CHEMISTRY LIONEL WHITT Performing Organization Address City/[facility]/ZIP Co de Phone Number [facility] ([facility]) [address] [place] [address] * US TIPS W ABDOMEN LIMITED (07/24/2023 [...] Detected None Detected 07/16/2023 10:11 PM CDT [facility] ([facility]) Comment: If suspicion of connective tissue disease is strong and NILE EIA is negative, consider testing for NILE by IFA ([id number]). INTERPRETIVE INFORMATION: Anti-Nuclear Antibodies (NILE), IgG by RAMOS Antinuclear Antibodies (NILE), IgG by RAMOS: NILE specimens are screened using enzyme-linked immunosorbent assay (RAMOS) methodology. All RAMOS results reported as Detected are further tested by indirect fluorescent assay (IFA) using HEp-2 substrate with an IgG-specific conjugate. The NILE RAMOS screen is designed to detect antibodies against dsDNA, histones, SS-A (Ro), SS-B (La), Mclean, Mclean/[employer]ISS[employer]ER, Scl-70, Evelina-1, centromeric proteins, other antigens extracted from the HEp-2 cell nucleus. NILE RAMOS assays have been reported to have lower sensitivities than NILE IFA for systemic autoimmune rheumatic diseases (SARD). Negative results do not necessarily rule out SARD. Performed By: [place] [address] Chair Inspector: Benny Desai MD, PhD CLIA Number: [id number] Blood BLOOD SPECIMEN / Unknown Lab Venipuncture / Unknown 07/14/2023 4:58 PM CDT 07/14/2023 5:15 PM CDT Steve Bedolla MD LAB - CHEMISTRY LIONEL WHITT Performing Organization Address City/[facility]/ZIP Co de Phone Number [facility] ([facility]) [address] [place] [address] * VNIXW-7-APRUABRMLXN BLOOD (07/14/2023 4:58 PM CDT) Pathologist [facility] Jqcuq-8-Vgsypy ypsin 182 90 - 200 mg/dL 07/14/2023 5:40 PM CDT [facility] Blood BLOOD SPECIMEN / Unknown Lab Venipuncture / Unknown 07/14/2023 4:58 PM CDT 07/14/2023 5:15 PM CDT Steve Bedolla MD LAB - CHEMISTRY LIONEL WHITT Performing Organization Address City/[facility]/ZIP Co de Phone Number [address] [address], [facility] [phone] * IRON + TRANSFERRIN PANEL (07/14/2023 4:58 PM CDT) Iron 118 50 - 175 ug/dL 07/14/2023 5:39 PM CDT [facility] Transferrin 309 174 - 382 mg/dL 07/14/2023 5:39 PM CDT [facility] Transferrin Saturation % 31 16 - 50 % 07/14/2023 5:39 PM CDT [facility] TIBC Calculated 386 240 - 450 ug/dL 07/14/2023 5:39 PM CDT [facility] Blood BLOOD SPECIMEN / Unknown Lab Venipuncture / Unknown 07/14/2023 4:58 PM CDT 07/14/2023 5:15 PM CDT Steve Bedolla MD LAB - CHEMISTRY LIONEL WHITT Performing Organization Address City/[facility]/ZIP Co de Phone Number [address] [address], [place] [phone] * FERRITIN (07/14/2023 4:58 PM CDT) Ferritin 71 22 - 275 ng/mL 07/14/2023 5:58 PM CDT [facility] Blood BLOOD SPECIMEN / Unknown Lab Venipuncture / Unknown 07/14/2023 4:58 PM CDT 07/14/2023 5:15 PM CDT Steve Bedolla MD LAB - CHEMISTRY LIONEL WHITT Performing Organization Address [facility]/ZIP Co de Phone Number [address] [address], [place] [phone] * CULTURE URINE (10/04/2018 2:34 PM CDT) Culture Urine 10,000-50,000 CFU/mL urogenital jc JUANCARLOS 10/06/2018 10:31 AM CDT [facility] Urine URINE SPECIMEN OBTAINED BY CLEAN CATCH PROCEDURE / Unknown Collection / Unknown 10/04/2018 2:34 PM CDT 10/04/2018 8:11 PM CDT Trice HUERTA LAB - MICROBIOLO GY ORDERABLES Performing Organization Address City/[facility]/ZIP Co de Phone Number [facility] [address] [place] [address], [facility] [phone] * URINALYSIS AUTO - POINT OF CARE (AMB) [facility] (10/04/2018 1:23 PM CDT) Glucose UA 3 Bilirubin UA POCT neg Ketones UA POCT trace Specific Holcomb UA 1.020 Blood Urine POCT neg pH UA 6.0 Protein UA neg Urobilinogen UA 1 Nitrite UA neg WBC UA neg Urine URINE / Unknown 10/04/2018 1 :23 PM CDT Trice Blankenship BINDING CUTTER-MANAGER ACUTE LAB - POINT OF C ARE ORDERABLES * LAB RESULTS ORDER (06/28/2018 9:29 AM INSOLE STIFFENER) Only the most recent of2 resultswithin the time period is included. Narrative 06/28/2018 9:29 AM INSOLE STIFFENER Ordered by an unspecified provider. Scanned Document [...] OF CARE (AMB) [facility] (05/24/2018 8:30 AM INSOLE STIFFENER) Only the most recent of2 resultswithin the time period is included. Hemoglobin A1c POCT 8.2 BLOOD SPECIMEN / Unknown 05/24/2018 8:30 AM INSOLE STIFFENER Edmond Choi MD LAB - POINT OF CARE ORDERABLES Care Teams Submersible Pilot Relationship Specialty Start Date End Date Braydon Pavon PA [address] [place] [address] PCP - General Physician Waiter/Waitress Club 07/14/23
--- OUTSIDE RECORDS SUMMARY | 2024-05-08 05:45 | XMS_ITS | Encounter Summary ---
Author Organization [facility] Address [address] [place] [address] [place] [address] Care Team Providers Care Engineering Production Liaison Name Role Phone Braydon Pavon Primary Care Provider [phone] Reason for Visit * Reason Onset Date Comments Follow-up 08/18/2023 Encounter Details Date Type Department Care Team (Late st Contact Info) Description 08/18/2023 Telephone [facility] [address] [place] [address], [facility] [place] [address] Steve Bedolla MD [address] [place] [address] Follow-up Social History Tobacco Use Types [...] CDT Anesthesia Event [facility] MRI [address] [place] [address] Pushpa Frey, [address] [facility] [address] [place] [phone] 05/20/2024 12:30 PM PASSENGER SOLICITOR Appointment [facility] MRI [address] [place] [address] Steve Bedolla MD [address] [place] [address] documented as of this encounter [...] on filedocumented in this encounter Care Teams Engineering Production Liaison Relationship Specialty Start Date End Date Braydon Pavon PA [address] [place] [address] PCP - General Physician Cut Off Saw Operator Pipe Blanks 07/14/23 documented as of this encounter
--- OUTSIDE RECORDS SUMMARY | 2024-05-08 05:45 | XMS_ITS | Encounter Summary ---
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) Social [...] Description 02/17/2024 11:59 PM CDT Anesthesia Event [facility] [address] [place] [phone] Pushpa Frey DO [address] [facility] [address] [phone] 05/20/2024 12:30 PM SUGAR CANE PLANTING EQUIPMENT OPERATOR Appointment [facility] MRI [address] [place] [phone] Steve Bedolla MD [address] [place] [address] documented as of this encounter Visit Diagnoses Diagnosis 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
--- OUTSIDE RECORDS SUMMARY | 2024-05-08 05:45 | XMS_ITS | Encounter Summary ---
Author Organization [facility] Address [address] [facility] [place] [address] Care Team Providers Care Hearing Aid Repair Technician Name Role Phone Braydon Pavon Primary Care Provider [phone] Reason for Visit * Reason Comments Pain Abdominal Pt BIBself c/o pain in LUQ, pt states where my liver is. Pt was at [facility] Thursday and Thursday for sedated MRI, could not receive one, and believes he still needs one. Pt has shunt and believes there may be a clog. Encounter Details Date Type Department Care Team (Late st Contact Info) Description 01/22/2024 8:37 PM CDT - 01/22/2024 8:43 PM CDT Emergency [facility] EMERGENCY DEPARTMENT [address] [place] [phone] Discharge Disposition: Left Against Medical Advice/Discontinued Care [...] where my liver is. Pt was at [facility] Thursday and Thursday for sedated MRI, could [...] Description 02/17/2024 11:59 PM CDT Anesthesia Event [facility] MRI [address] [place] [phone] Pushpa Frey, DO [address] [facility] [address] [phone] 05/20/2024 12:30 PM WRAPPER CASHIER Appointment [facility] MRI [address] [place] [address] Steve Bedolla MD [address] [place] [address] documented as of this encounter [...] on filedocumented in this encounter Care Teams Hearing Aid Repair Technician Relationship Specialty Start Date End Date Braydon Pavon PA [address] [place] [address] PCP - General Physician Paint Roller Covers Supervisor 07/14/23 documented as of this encounter
--- OUTSIDE RECORDS SUMMARY | 2024-05-08 05:45 | XMS_ITS | Encounter Summary ---
Author Organization [facility] Address [facility] [place] [address] Care Team Providers Care Sodder Name Role Phone Braydon Pavon Primary Care Provider [phone] Encounter Details Date Type Department Care Team [...] Description 02/17/2024 11:59 PM CDT Anesthesia Event [facility] MRI [address] [place] [phone] Pushpa Frey DO [address] [facility] [address] [phone] 05/20/2024 12:[address] LIGHT SERVICER HELPER Appointment [facility] MRI [address] [place] [phone] Steve Bedolla MD [address] [place] [phone] documented as of this encounter Goals Goal [...] on filedocumented in this encounter Care Teams Sodder Relationship Specialty Start Date End Date Braydon Pavon PA [address] [place] [address] PCP - General Physician Reconciliation Machine Operator 07/14/23 documented as of this encounter
--- OUTSIDE RECORDS SUMMARY | 2024-05-08 05:46 | XMS_ITS | Encounter Summary ---
Author Organization [facility] Address [address] [place] [address]. [place] [address] [place] [address] Care Team Providers Care Wagon Person Name Role Phone Unavailable Primary Care Provider Unavailabl e Encounter Details Date Type Department Care Team (Latest Contact Info) Description 12/09/2016 Abstract [facility] Medical Group Social History Tobacco [...] st Contact Info) Description 05/10/2024 11:40 AM SHAREPOINT ANALYST Office Visit [facility] Medical Group Diabetes and Endocrinology - [address] [phone] Eva Power MD [address] [place] [phone] documented as of this encounter Visit Diagnoses Not on filedocumented in this encounter
--- OUTSIDE RECORDS SUMMARY | 2024-05-08 05:46 | XMS_ITS | Encounter Summary ---
Author Organization [facility] Address [address] [place] [address]. [place] [address] [place] [address] Care Team Providers Care Pumper Gager Apprentice Name Role Phone Braydon Pavon Primary Care Provider [phone] Reason for Visit * Reason Onset Date Comments Reschedule 03/30/2024 Encounter Details Date Type Department Care Team (Late st Contact Info) Description 03/30/2024 Telephone [facility] Medical Group Diabetes and Endocrinology - [address] [phone] Eva Power MD [address] [place] [address] Reschedule Social History Tobacco Use Types [...] Caller name: Mayra, Spouse Call back/ext. #: [phone] Call details: Rescheduled Appt: Previous Date: 05/20/2024 Fri 1:40 pm New Date: 05/10/2024 Tu 11:40 am LOG LIBRARIAN documented in this encounter Plan of Treatment Upcoming Encounters Date Type Department Care Team (Late st Contact Info) Description 05/10/2024 11:40 AM CATALOG LIBRARIAN Office Visit [facility] Medical Group Diabetes and Endocrinology - [address] [phone] Eva Power MD [address] [place] [address] documented as of this encounter Visit Diagnoses Not on filedocumented in this encounter Care Teams Pumper Gager Apprentice Relationship Specialty Start Date End Date Braydon Pavon PA [address] [place] [address] PCP - General PHYSICIAN DIRECTOR PEDIATRIC 03/02/19 documented as of this encounter
--- OUTSIDE RECORDS SUMMARY | 2024-05-08 05:46 | XMS_ITS | Encounter Summary ---
Author Organization [facility] Address [address] [place] [address]. [place] [address] [place] [address] Care Team Providers Care X Ray Service Technician Name Role Phone Braydon Pavon Primary Care Provider [phone] Reason for Visit * Reason Onset Date Comments Refill Request 08/04/2019 Encounter Details Date Type Department Care Team (Late st Contact Info) Description 08/04/2019 Telephone [facility] Medical Group Diabetes and Endocrinology - [address] [phone] Eva Power MD [address] [place] [address] Refill Request Social History Tobacco Use [...] a refill on the following: QuickPen QuickPen Bryce Send to [facility] documented in this encounter Plan of Treatment Upcoming Encounters Date Type Department Care Team (Late st Contact Info) Description 05/10/2024 11:40 AM IMAGE SCIENTIST Office Visit [facility] Medical Group Diabetes and Endocrinology - [address] [phone] Eva Power MD [address] [place] [address] documented as of this encounter Visit Diagnoses Not on filedocumented in this encounter Care Teams X Ray Service Technician Relationship Specialty Start Date End Date Braydon Pavon PA [address] [place] [address] PCP - General PHYSICIAN BREAKDOWN MILL OPERATOR 03/02/19 documented as of this encounter
--- OUTSIDE RECORDS SUMMARY | 2024-05-08 05:46 | XMS_ITS | Encounter Summary ---
Author Organization [facility] Address [address] [place] [address]. [place] [address] [place] [address] Care Team Providers Care Jewel Lathe Operator Name Role Phone Braydon Pavon Primary Care Provider [phone] Reason for Visit * Reason Onset Date Comments Called To Cancel Office Appt. 07/05/2019 Encounter Details Date Type Department Care Team (Late st Contact Info) Description 07/05/2019 Telephone [facility] Medical Group Diabetes and Endocrinology - [address] [phone] Eva Power MD [address] [place] [address] Called To Cancel Office Appt. Social [...] Chapin - 07/05/2019 12:18 PM CST Noted NER * Chantelle Espinoza MA - 07/05/2019 11:54 AM CST FYI NER * Cameron Calderon - 07/05/2019 11:52 AM CST Patient cancelled appointment for today, declined to reschedule. NER documented in this encounter Plan of Treatment Upcoming Encounters Date Type Department Care Team (Late st Contact Info) Description 05/10/2024 11:40 AM CLEANER Office Visit [facility] Medical Group Diabetes and Endocrinology - [address] [phone] Eva Power MD [address] [place] [phone] documented as of this encounter Visit Diagnoses Not on filedocumented in this encounter Care Teams Jewel Lathe Operator Relationship Specialty Start Date End Date Braydon Pavon PA [address] [place] [address] PCP - General PHYSICIAN NET COORDINATOR 03/02/19 documented as of this encounter
--- OUTSIDE RECORDS SUMMARY | 2024-05-08 05:46 | XMS_ITS | Encounter Summary ---
Author Organization [facility] Address [address] [place] [address]. [place] [address] [place] [address] Care Team Providers Care Interior Horticulturist Name Role Phone Braydon Pavon Primary Care Provider [phone] Reason for Visit * Reason Onset Date Comments Medication Problem 09/06/2019 Encounter Details Date Type Department Care Team (Late st Contact Info) Description 09/06/2019 Telephone [facility] Medical Group Diabetes and Endocrinology - [address] [phone] [place] [address] [place] [address] Medication Problem Social History Tobacco Use [...] new script be sent to Trip in [facility]. Callback # [phone] documented in this encounter Plan of Treatment Upcoming Encounters Date Type Department Care Team (Late st Contact Info) Description 05/10/2024 11:40 AM INSPECTOR RAG SORTING Office Visit [facility] Medical Group Diabetes and Endocrinology - [address] [phone] Eva Power MD [address] [place] [phone] documented as of this encounter Visit Diagnoses Diagnosis Type 2 diabetes mellitus with hyperglycemia, with long-term current use of insulin ([facility])- Primary documented in this encounter Care Teams Interior Horticulturist Relationship Specialty Start Date End Date Braydon Pavon PA [address] [place] [address] PCP - General PHYSICIAN MUSHROOM GROWER 03/02/19 documented as of this encounter
--- OUTSIDE RECORDS SUMMARY | 2024-05-08 05:46 | XMS_ITS | Encounter Summary ---
Author Organization [facility] Address [address] [place] [address]. [place] [address] [place] [address] Care Team Providers Care Analytical Chemist Name Role Phone Braydon Pavon Primary Care Provider [phone] Encounter Details Date Type Department Care Team [...] COVID-19? No / Unsure 03/19/2021 6:15 AM HORTICULTURAL FARMWORKER documented as of this encounter Plan of Treatment Upcoming Encounters Date Type Department Care Team (Late st Contact Info) Description 05/10/2024 11:40 AM HORTICULTURAL FARMWORKER Office Visit [facility] Medical Group Diabetes and Endocrinology - [address] [phone] Eva Power MD [address] [place] [address] documented as of this encounter Visit Diagnoses Not on filedocumented in this encounter Care Teams Analytical Chemist Relationship Specialty Start Date End Date Braydon Pavon PA [address] [place] [address] PCP - General PHYSICIAN CLINICAL INFORMATICS SPECIALIST 03/02/19 documented as of this encounter
--- OUTSIDE RECORDS SUMMARY | 2024-05-08 05:46 | XMS_ITS | Encounter Summary ---
Author Organization [facility] Address [facility] [place] [address] Care Team Providers Care Silverware Cleaner Name Role Phone Braydon Pavon Primary Care Provider Reason for Visit * Reason Comments Establish Care DIABETES Encounter Details Date Type Department Care Team (Late st Contact Info) Description 05/24/2018 8:00 AM ELECT EQUIP MAINT ENG Office Visit [facility] [address] [facility] [place] [address] Edmond Choi MD [address] [facility] 2[address] [facility] [place] [address] Type 2 diabetes mellitus with complication, with [...] Comments Blood Pressure 152/89 05/24/2018 8:17 AM ELECT EQUIP MAINT ENG Pulse 102 05/24/2018 8:17 AM ELECT EQUIP MAINT ENG Temperature 36.6 ??C (97.9 ??F) 05/24/2018 8:17 AM CS T Respiratory Rate - - Oxygen Saturation 96% 05/24/2018 8:17 AM ELECT EQUIP MAINT ENG Inhaled Oxygen Concentration - - Weight 125.2 kg (276 lb) 05/24/2018 8:17 AM ELECT EQUIP MAINT ENG Height 172.7 cm (5' 8 ) 05/24/2018 8:17 AM ELECT EQUIP MAINT ENG Body Mass Index 41.97 05/24/2018 8:17 AM ELECT EQUIP MAINT ENG documented in this encounter Patient Instructions * Patient Instructions* Edmond Choi MD - 05/24/2018 8:52 AM ELECT EQUIP MAINT ENG U500 insulin every 6 hours:- 150 units in AM 150 units in afternoon 150 units in evening 100 units at bedtime Take metformin ER 1000 mg in evening Start Hydrochlorothiazide 25 mg in AM T EQUIP MAINT ENG documented in this encounter Progress Notes * Edmond Choi MD - 05/24/2018 8:19 AM CST Subjective: Camilo Curry is a 47 y.o. male who presents for an initial evaluation of Type 2 diabetes mellitus. Developed prediabetes, but after receiving steroids in back for spinal stenosis, he progressed to diabetes in 2011. Was seeing an draw press operator in [place] but insurance changed and he is here [...] s/p TIPS 11/2015. Transferring liver care from [place] to [facility] due to insurance. Spinal stenosis: Disabled. On [...] lipids before next visit RTC 4 weeks T EQUIP MAINT ENG documented in this encounter Plan of Treatment Upcoming Encounters Date Type Department Care Team (Late st Contact Info) Description 02/17/2024 11:59 PM CDT Anesthesia Event [facility] [address] [place] [phone] Pushpa Frey, [address] [facility] [address] [phone] 05/20/2024 12:30 PM ELECT EQUIP MAINT ENG Appointment [facility] MRI [address] [place] [address] Steve Bedolla MD [address] [place] [phone] Scheduled Orders Name Type Priority Associated Diagnoses Orde r Schedule MICROALB/CREAT RATIO URINE RANDOM PANEL Lab Routine Type 2 diabetes mellitus with complication, with long-term current use of insulin (HCC) Expected: 05/24/2018 (Approximate), Expires: 06/24/2019 documented as of this encounter Procedures Procedure Name Priority Date/Time Associated Diagnosis Comments HEMOGLOBIN A1C - POINT OF CARE (AMB) [facility] Routine 05/24/2018 8:30 AM ELECT EQUIP MAINT ENG Type 2 diabetes mellitus with complication, with long-term current use of insulin (HCC) HEMOGLOBIN A1C - POINT OF CARE (AMB) [facility] Routine 05/24/2018 Type 2 diabetes mellitus with complication, with long-term current use of insulin (HCC) documented in this encounter Results * HEMOGLOBIN A1C - POINT OF CARE (AMB) [facility] (05/24/2018 8:30 AM ELECT EQUIP MAINT ENG) Hemoglobin A1c POCT 8.2 BLOOD SPECIMEN / Unknown 05/24/2018 8:30 AM ELECT EQUIP MAINT ENG Edmond Choi MD LAB - POINT OF [...] Primary documented in this encounter Care Teams Silverware Cleaner Relationship Specialty Start Date End Date Braydon Pavon PA [address] [place] [address] PCP - General Physician Certified Medical Dosimetrist 05/19/18 10/03/18 documented as of this encounter
--- OUTSIDE RECORDS SUMMARY | 2024-05-08 05:46 | XMS_ITS | Encounter Summary ---
Author Organization [facility] Address [address] [place] [address]. [place] [address] [place] [address] Care Team Providers Care Director Food And Beverage Name Role Phone Braydon Pavon Primary Care Provider [phone] Encounter Details Date Type Department Care Team [...] st Contact Info) Description 05/10/2024 11:40 AM ALLERGY SPECIALIST Office Visit [facility] Medical Group Diabetes and Endocrinology - [address] [phone] Eva Power MD [address] [place] [address] documented as of this encounter Visit Diagnoses Not on filedocumented in this encounter Care Teams Director Food And Beverage Relationship Specialty Start Date End Date Braydon Pavon PA [address] [place] [address] PCP - General PHYSICIAN TICKETER 03/02/19 documented as of this encounter
--- OUTSIDE RECORDS SUMMARY | 2024-05-08 05:46 | XMS_ITS | Encounter Summary ---
Author Organization [facility] Address [address] [place] [address]. [place] [address] [place] [address] Care Team Providers Care Progressive Assembler And Fitter Name Role Phone Braydon Pavon Primary Care Provider [phone] Encounter Details Date Type Department Care Team [...] st Contact Info) Description 05/10/2024 11:40 AM PARK NATURALIST Office Visit [facility] Medical Group Diabetes and Endocrinology - [place] [address] [place] [address] Eva Power MD [address] [place] [address] documented as of this encounter Visit Diagnoses Not on filedocumented in this encounter Care Teams Progressive Assembler And Fitter Relationship Specialty Start Date End Date Braydon Pavon PA [address] [place] [address] PCP - General PHYSICIAN INSURANCE CUSTOMER SERVICE SPECIALIST 03/02/19 documented as of this encounter
--- OUTSIDE RECORDS SUMMARY | 2024-05-08 05:46 | XMS_ITS | Encounter Summary ---
Author Organization [facility] Address [address] [place] [address]. [place] [address] [place] [address] Care Team Providers Care Fabricator Assembler Metal Products Name Role Phone None, Provider Primary Care Provider Braydon Piedra Primary Care Provider [phone] Encounter Details Date Type Department Care Team (Late Contact Info) Description 10/09/2018 Abstract [facility] [address] [place] [address] , Generic Conversion, Social History Tobacco Use [...] (Late Contact Info) Description 05/10/2024 11:40 AM DIETITIAN RESEARCH Office Visit [facility] Medical Group Diabetes and Endocrinology - [address] [phone] Eva Power MD [address] [place] [address] [place] [address] documented as of this encounter Visit Diagnoses Not on filedocumented in this encounter Care Teams Fabricator Assembler Metal Products Relationship Specialty Start Date End Date None, Provider, PCP - General 02/08/19 03/01/19 Braydon Pavon PA [address] [place] [address] PCP - General PHYSICIAN GAS SUBSTATION OPERATOR 03/02/19 documented as of this encounter
--- OUTSIDE RECORDS SUMMARY | 2024-05-08 05:46 | XMS_ITS | Encounter Summary ---
Author Organization [facility] Address [address] [place] [address]. [place] [address] [place] [address] Care Team Providers Care Network Intelligence Analyst Name Role Phone Unavailable Primary Care Provider Unavailabl e Encounter Details Date Type Department Care Team (Latest Contact Info) Description 11/21/2016 Abstract [facility] Medical Group Social History Tobacco [...] st Contact Info) Description 05/10/2024 11:40 AM TRANSPORTATION MECHANIC Office Visit [facility] Medical Group Diabetes and Endocrinology - [address] [phone] Eva Power MD [address] [place] [phone] documented as of this encounter Visit Diagnoses Not on filedocumented in this encounter
--- OUTSIDE RECORDS SUMMARY | 2024-05-08 05:46 | XMS_ITS | Encounter Summary ---
Author Organization [facility] Address [address] [place] [address]. [place], [place] [address] [place] [address] Care Team Providers Care Study Coordinator Name Role Phone Unavailable Primary Care Provider Unavailabl e Encounter Details Date Type Department Care Team (Latest Contact Info) Description 10/15/2016 Abstract [facility] Medical Group Social History Tobacco Use [...] Power Task Name: Call Back Assigned To: [facility] Nurse Team Regarding Patient: Camilo Curry, [...] Ying Mujica L.P.N.; Oct 15 2016 1:56PM TAPE KELLER OPERATOR (Author) documented in this encounter Plan of Treatment Upcoming Encounters Date Type Department Care Team (Late st Contact Info) Description 05/10/2024 11:40 AM TAPE KELLER OPERATOR Office Visit [facility] Medical Group Diabetes and Endocrinology - [address] [phone] Eva Power MD [address] [place] [phone] documented as of this encounter Visit Diagnoses Not on filedocumented in this encounter
--- OUTSIDE RECORDS SUMMARY | 2024-05-08 05:46 | XMS_ITS | Encounter Summary ---
Author Organization [facility] Address [address] [place] [address]. [place] [address] [place] [address] Care Team Providers Care Loading Unit Operator Name Role Phone Unavailable Primary Care Provider Unavailabl e Encounter Details Date Type Department Care Team (Late st Contact Info) Description 06/29/2018 [facility] [address] [place] [address] , Sarina Dotson MD Social [...] st Contact Info) Description 05/10/2024 11:40 AM VOCATIONAL COUNSELOR Office Visit [facility] Medical Group Diabetes and Endocrinology - [address] [phone] Eva Power MD [address] [place] [address] documented as of this encounter Visit Diagnoses Diagnosis Radiculopathy of lumbar region Thoracic or lumbosacral neuritis or radiculitis, unspecified documented in this encounter
--- OUTSIDE RECORDS SUMMARY | 2024-05-08 05:46 | XMS_ITS | Encounter Summary ---
Author Organization [facility] Address [address] [place] [address]. [place], [place] [address] [place] [address] Care Team Providers Care Leadership Program Internship Name Role Phone Braydon Pavon Primary Care Provider [phone] Reason for Visit * Reason Comments Anxiety Encounter Details Date Type Department Care Team ([facility] st Contact Info) Description 03/19/2021 6:13 AM BLOCK OPERATOR - 03/19/2021 6:20 AM [facility] Emergency [place] [facility] [address] [facility] [place] [address] Gerry Faustin MD [address] [place] [address] Anxiety Discharge Disposition: Home or Self Care [...] COVID-19? No / Unsure 03/19/2021 6:15 AM BLOCK OPERATOR documented as of this encounter Last Filed Vital Signs Vital Sign Reading Time Taken Comments Blood Pressure 159/73 03/19/2021 6:18 AM BLOCK OPERATOR Pulse 98 03/19/2021 6:18 AM BLOCK OPERATOR Temperature 36.4 ??C (97.5 ??F) 03/19/2021 6:18 AM CS T Respiratory Rate 16 03/19/2021 6:18 AM BLOCK OPERATOR Oxygen Saturation 98% 03/19/2021 6:18 AM BLOCK OPERATOR Inhaled Oxygen Concentration - - Weight 117.9 kg (260 lb) 03/19/2021 6:18 AM BLOCK OPERATOR Height 172.7 cm (5' 8 ) 03/19/2021 6:18 AM BLOCK OPERATOR Body Mass Index 39.53 03/19/2021 6:18 AM BLOCK OPERATOR documented in this encounter Medications at Time [...] with long-term current use of insulin ([facility]) Test 4 times daily 200 strip 11 09/06/2019 rifaximin 200 MG tablet Take 550 mg by mouth 2 (two) times daily. vitamin D2, ergocalciferol, [address]163 UNITS capsule Take 50,000 Units by mouth [...] left prior to being seen by physician. K OPERATOR * Mere Hooker RN - 03/19/2021 6:23 [...] in room nurse took to patient outside. K OPERATOR * Mere Hooker RN - 03/19/2021 6:16 AM CST Seen in [facility] yesterday was given oxycodone and has had three tablets woke up this am and felt panicked so I drove here che[place] been having problems with the other er K OPERATOR * Gerry Faustin MD - 03/19/2021 6:13 [...] 18 MG/3ML injection ??? vitamin D2, ergocalciferol, 43568 UNITS capsule Take 50,000 Units by mouth [...] medications on file Gerry Faustin MD 03/19/21624 K OPERATOR documented in this encounter Plan of Treatment Upcoming Encounters Date Type Department Care Team (Late st Contact Info) Description 05/10/2024 11:40 AM BLOCK OPERATOR Office Visit [facility] Medical Group Diabetes and Endocrinology - [address] [phone] Eva Power MD [address] [place] [address] documented as of this encounter Visit Diagnoses Diagnosis Anxiety- Primary Anxiety state, unspecified Patient left without being seen Surgical or other procedure not carried out because of patient's decision documented in this encounter Care Teams Leadership Program Internship Relationship Specialty Start Date End Date Braydon Pavon PA [address] [place] [address] PCP - General PHYSICIAN AGRICULTURAL APPRAISER 03/02/19 documented as of this encounter
--- OUTSIDE RECORDS SUMMARY | 2024-05-08 05:46 | XMS_ITS | Encounter Summary ---
Author Organization [facility] Address [address] [place] [address]. [place] [address] [place] [address] Care Team Providers Care Pattern Designer Name Role Phone Unavailable Primary Care Provider Unavailabl e Encounter Details Date Type Department Care Team (Late st Contact Info) Description 12/09/2016 Abstract [facility] Medical Group Diabetes and Endocrinology - [address] [phone] Eva Power MD [address] [place] [place] [address] [phone] Social History Tobacco Use Types Packs/Day Years [...] therapy; KATLYN = N; Verified Transmission to [employer]; Last Updated By: Meka Phillips; 12/09/2016 12:11:18 [...] HCl - 500 MG Oral Tablet; Therapy: (Recorded:[id number]) to Recorded Dispense: 0 Days ; #: Sufficient TABS; Refill: 0; KATLYN = N; Record; Last Updated By: Judy Ledesma;01/03/2015 11:58:23 PM 7. Omeprazole 20 MG Oral Capsule Delayed Release; TAKE 1 CAPSULE DAILY EVERY MORNING BEFORE BREAKFAST; Therapy: [id number] to Recorded Rx By: Eva Power; Dispense: 0 Days ; #: Sufficient Capsule Delayed Release; Refill: 0; KATLYN = N;Record 8. [employer] Ultra Blue In Vitro Strip; TESTING 6 TIMES DAILY; Therapy: [id number] to (Evaluate:[id number]) Requested for: [id number]; Last Rx:[id number] Ordered Rx By: Eva Power; Dispense: 0 Days ; #:2 X 100 Strip Box; Refill: 11; For: Uncontrolled type 2 diabetes mellitus with insulin therapy; KATLYN = N; Verified Transmission to [employer]; Last Updated By: [employer]; 12/09/2016 12:11:17 PM 9. [place] Mini w/Device Kit; USE DIRECTED; Therapy: [id number] to (Last Rx:[id number]) Requested for: [id number] Ordered Rx By: Eva Power; Dispense: 0 Days ; #:1 Kit; Refill: 0; For: Uncontrolled type 2 diabetes mellitus with insulin therapy; KATLYN = N; Verified Transmission to [employer]; Last Updated By: [employer]; 12/09/2016 12:11:19 PM 10. Xanax TABS; Therapy: (Recorded:[id number]) to Recorded Dispense: 0 Days ; #: Sufficient TABS; Refill: 0; KTALYN = N; Record; Last Updated By: Judy Ledesma;01/03/2015 11:58:23 PM 11. Xifaxan 550 MG Oral Tablet; Therapy: [id number] to Recorded Rx By: Eva Power; Dispense: [...] PM Results/Data *Glucose, Whole Blood In Office [id number] 11:47AM Eva Power Test Name Result Flag Reference Glucose Finger Stick 242 mg/dl 70 - 110 mg/dl *A1C In Office [id number] 11:46AM Eva Power Test Name Result Flag [...] AND DCE group and Planning Healthy Mealsfrom [employer]. Reviewed CHO containing foods, serving sizes, and [...] increase physical activity by 10 minutes daily. Director Of Psychology Monitoring Evaluation: Food and Blood Glucose Monitoring [...] Ganesh Collins RD; Dec 10 2016 11:54AM ENVIRONMENTAL COORDINATOR (Author) documented in this encounter Plan of Treatment Upcoming Encounters Date Type Department Care Team (Late st Contact Info) Description 05/10/2024 11:40 AM ENVIRONMENTAL COORDINATOR Office Visit [facility] Medical Group Diabetes and Endocrinology - [address] [phone] Eva Power MD [address] [place] [address] [phone] documented as of this encounter Visit Diagnoses Not on filedocumented in this encounter
--- OUTSIDE RECORDS SUMMARY | 2024-05-08 05:46 | XMS_ITS | Encounter Summary ---
Author Organization [facility] Address [address] [place] [address]. [place] [address] [place] [address] Care Team Providers Care Sergeant Missile Crewman Name Role Phone None, Provider Primary Care Provider Braydon Piedra Primary Care Provider [phone] Reason for Visit * Reason Comments Image [...] st Contact Info) Description 05/10/2024 11:40 AM PROGRAM MGR Office Visit [facility] Medical Group Diabetes and Endocrinology - [address] [phone] Eva Power MD [address] [place] [address] documented as of this encounter Procedures Procedure Name Priority Date/Time Associated Diagnosis Comments IMAGE GENERIC Routine 07/19/2018 documented in this encounter Results * IMAGE STUDY (07/19/2018) Anatomical Region Laterality Modality Other us Documents Scanned SCANNING Final Result documented in this encounter Visit Diagnoses Not on filedocumented in this encounter Care Teams Sergeant Missile Crewman Relationship Specialty Start Date End Date None, Provider, PCP - General 02/08/19 03/01/19 Braydon Pavon PA [address] [place] [address] PCP - General PHYSICIAN ADVERTISING ACCOUNT REPRESENTATIVE 03/02/19 documented as of this encounter
--- OUTSIDE RECORDS SUMMARY | 2024-05-08 05:46 | XMS_ITS | Encounter Summary ---
Author Organization [facility] Address [address] [place] [address]. [place] [address] [place] [address] Care Team Providers Care Decal Cutter Name Role Phone Unavailable Primary Care Provider Unavailabl e Encounter Details Date Type Department Care Team (Late Contact Info) Description 11/13/2016 Abstract [facility] [address] [place] [address] [place] [address] Berhane Lui MD [facility] [address] [address] Social History Tobacco Use Types [...] (Late Contact Info) Description 05/10/2024 11:40 AM TRANSPORT TANK TECHNICIAN Office Visit [facility] Medical Group Diabetes and Endocrinology - [address] [phone] Eva Power MD [address] [place] [phone] documented as of this encounter Procedures Procedure [...] - 99 MG/DL 11/13/2016 10:16 PM CDT [facility] ORDERS INTERFACE Comment:Notify Doctor 11/13/2016 10:1 3 PM CDT 11/13/2016 10:16 PM CDT us Generic Conversion Md RED POCT ORDERABLES - DEVIC E Final Result [facility] ORDERS INTERFACE US * (ABNORMAL) URINALYSIS (11/13/2016 9:22 PM CDT) COLOR (U) YELLOW 11/13/2016 9:41 PM CDT [facility] TRANSPARENCY CLEAR 11/13/2016 9:41 PM CDT [facility] SPECIFIC GRAVITY (U) 1.020 1.000 - 1.025 11/13/2016 9:41 PM CDT [facility] U PH 5.5 5.0 - 8.0 11/13/2016 9:41 PM CDT [facility] LEUKOCYTES (U) NEGATIVE NEGATIVE 11/13/2016 9:41 PM CDT [facility] NITRITES NEGATIVE NEGATIVE 11/13/2016 9:41 PM CDT [facility] PROTEIN (U) NEGATIVE NEGATIVE 11/13/2016 9:41 PM CDT [facility] URINE GLUCOSE 3+(A) NEGATIVE 11/13/2016 9:41 PM CDT [facility] KETONES MG/DL (U) NEGATIVE NEGATIVE 11/13/2016 9:41 PM CDT [facility] UROBILINOGEN 1.0(H) <1.0 EU/DL 11/13/2016 9:41 PM CDT [facility] BILIRUBIN (U) NEGATIVE NEGATIVE 11/13/2016 9:41 PM CDT [facility] BLOOD (U) NEGATIVE NEGATIVE 11/13/2016 9:41 PM CDT [facility] WBC/HPF 0-5 0 - 5 /HPF 11/13/2016 9:41 PM CDT [facility] RBC/HPF 0-5 0 - 5 /HPF 11/13/2016 9:41 PM CDT [facility] EPI/HPF OCCASIONAL /LPF 11/13/2016 9:41 PM CDT [facility] BACTERIA (U) TRACE /HPF 11/13/2016 9:41 PM CDT [facility] 11/13/2016 9:22 PM CDT 11/13/2016 9:31 PM CDT us Generic Conversion Md RED URINE ORDERABLES Final Result [facility] [place] [address], * (ABNORMAL) POCT glucose (11/13/2016 9:13 PM CDT) [facility] GLUCOSE POC 319(H) 70 - 99 MG/DL 11/13/2016 9:21 PM CDT [facility] ORDERS INTERFACE Comment:Notify Doctor 11/13/2016 9:13 PM CDT 11/13/2016 9:20 PM CDT us Generic Conversion Md RED POCT ORDERABLES - DEVIC E Final Result [facility] ORDERS INTERFACE US * (ABNORMAL) COMPREHENSIVE METABOLIC PANEL (11/13/2016 9:04 PM CDT) GLUCOSE 379(H) 70 - 99 MG/DL 11/13/2016 9:30 PM CDT [facility] BUN 11 9 - 21 MG/DL 11/13/2016 9:30 PM CDT [facility] CREATININE S/P/B 1.10 0.72 - 1.25 MG/DL 11/13/2016 9:30 PM CDT [facility] SODIUM S/P/B 141 136 - 145 MMOL/L 11/13/2016 9:30 PM CDT [facility] POTASSIUM S/P/B 3.9 3.5 - 5.1 MMOL/L 11/13/2016 9:30 PM CDT [facility] CHLORIDE S/P/B 108(H) 98 - 107 MMOL/L 11/13/2016 9:30 PM CDT [facility] CO2 24.0 22.0 - 29.0 MMOL/L 11/13/2016 9:30 PM CDT [facility] CALCIUM S/P/B 8.5 8.4 - 10.2 MG/DL 11/13/2016 9:30 PM CDT [facility] BILIRUBIN TOTAL S/P/B 1.3(H) 0.2 - 1.2 MG/DL 11/13/2016 9:30 PM CDT [facility] TOTAL PROTEIN S/P/B 6.4 6.0 - 8.3 G/DL 11/13/2016 9:30 PM T [facility] ALBUMIN S/P/B 3.4(L) 3.5 - 5.2 G/DL 11/13/2016 9:30 PM CDT [facility] AST 43(H) 5 - 34 U/L 11/13/2016 9:30 PM CDT [facility] ALT 54 0 - 55 U/L 11/13/2016 9:30 PM CDT [facility] ALKALINE PHOSPHATASE S/P/B 87 50 - 136 U/L 11/13/2016 9:30 PM CDT [facility] OSMOLALITY (CALC) 296 275 - 300 MOSM/KG 11/13/2016 9:30 PM CDT [facility] A/G RATIO 1.1 1.0 - 1.6 RATIO 11/13/2016 9:30 PM CDT [facility] BUN CREATININE RATIO 10.0(L) 12 - 20 11/13/2016 9:30 PM CDT [facility] ANION GAP 9.0 7 - 16 MMOL/L 11/13/2016 9:30 PM CDT [facility] EGFR NON-AFR. AMER. >60 >60 ML/MIN/1.7 3 M2 11/13/2016 9:30 PM CDT [facility] EGFR AFR. AMER. >60 >60 ML/MIN/1.7 3 M2 11/13/2016 9:30 PM CDT [facility] 11/13/2016 9:04 PM CDT 11/13/2016 9:09 PM CDT us Generic Conversion Md RED LABORATORY Final R esult [facility] [address] [employer] [place] [phone], * (ABNORMAL) CBC W/DIFF AUTOMATED (11/13/2016 9:04 PM CDT) WBC 3.6(L) 4.5 - 10.8 x10'3/uL 11/13/2016 9:21 PM CDT [facility] RBC 4.28(L) 4.50 - 6.10 x10'6/uL 11/13/2016 9:21 PM CDT [facility] HGB 12.6(L) 13.0 - 18.0 G/DL 11/13/2016 9:21 PM CDT [facility] HCT 35.5(L) 37.0 - 52.0 % 11/13/2016 9:21 PM CDT [facility] MCV 82.9 78.0 - 100.0 FL 11/13/2016 9:21 PM CDT [facility] MCH 29.4 27.0 - 31.0 PG 11/13/2016 9:21 PM CDT [facility] MCHC 35.5 33.0 - 36.0 G/DL 11/13/2016 9:21 PM CDT [facility] RDW 15.2(H) 11.5 - 14.5 % 11/13/2016 9:21 PM CDT [facility] PLT 84(L) 150 - 350 x10'3/uL 11/13/2016 9:21 PM CDT [facility] MPV 10.6(H) 7.4 - 10.4 FL 11/13/2016 9:21 PM CDT [facility] SEG NEUTROPHILS 64.1 % 7 9:35 PM CDT [facility] LYMPHOCYTES 23.1 % 11/13/2016 9:35 PM CDT [facility] MONOCYTES 9.5 % 11/13/2016 9:35 PM CDT [facility] EOSINOPHILS 2.2 % 11/13/2016 9:35 PM CDT [facility] BASOPHILS 0.8 % 11/13/2016 9:35 PM CDT [facility] IMMATURE GRANS % 0.3 % 11/14/19 17 9:35 PM CDT [facility] NRBC 0.0 % 11/13/2016 9:35 PM CDT [facility] ABS. NEUTROPHILS 2.31 1.60 - 8.30 x10'3/uL 11/13/2016 9:35 PM CDT [facility] ABS. LYMPHOCYTES 0.83 0.80 - 4.70 x10'3/uL 11/13/2016 9:35 PM CDT [facility] ABS. MONOCYTES 0.34 0.00 - 1.50 x10'3/uL 11/13/2016 9:35 PM CDT [facility] ABS. EOSINOPHILS 0.08 0.00 - 0.40 x10'3/uL 11/13/2016 9:35 PM CDT [facility] ABS. BASOPHILS 0.03 0.00 - 0.20 x10'3/uL 11/13/2016 9:35 PM CDT [facility] ABS. IMMATURE GRANULOCYTES 0.01 0.00 - 0.03 x10'3/uL 11/13/2016 9:35 PM CDT [facility] ABS. NUCLEATED RBC'S 0.00 0.00 x10'3/uL 11/13/2016 9:35 PM CDT [facility] PLT MORPH. NORMAL 11/13/2016 9:35 PM CDT [facility] RBC MORPHOLOGY NORMAL 11/13/2016 9:35 PM CDT [facility] OTHER (type in comments) 11/13/2016 9:04 PM CDT 11/13/2016 9:09 PM CDT Comment:WHOLE BLOOD SAMPLE us Generic Conversion Md RED LABORATORY Final R esult Performing Organization Address [facility] Co de Phone Number [facility] [address] [place] [address], * BETA-HYDROXYBUTYRATE (11/13/2016 9:04 PM CDT) BETA-HYDROXYBUT YRATE 0.1 0.0 - 0.3 MMOL/L 11/13/2016 9:17 PM CDT [facility] SERUM OR PLASMA SPECIMEN / Unknown 11/13/2016 9:04 PM CDT 11/13/2016 9:09 PM CDT us Generic Conversion Md RED LABORATORY Final R esult Performing Organization Address City/[facility]/ZIP Co de Phone Number [facility] [address] [place] [address], documented in this encounter Visit Diagnoses Diagnosis Type 2 diabetes mellitus with hyperglycemia (CMS/HCC HHS/HCC) Type II or unspecified type diabetes mellitus without mention of complication, not stated as uncontrolled documented in this encounter
--- OUTSIDE RECORDS SUMMARY | 2024-05-08 05:46 | XMS_ITS | Encounter Summary ---
Author Organization [facility] Address [address] [place] [address]. [place] [address] [place] [address] Care Team Providers Care Gastroenterology Technician Name Role Phone Unavailable Primary Care Provider Unavailabl e Encounter Details Date Type Department Care Team (Latest Contact Info) Description 01/20/2018 Scan [facility] Medical Group Sarina Gamez MD Social [...] st Contact Info) Description 05/10/2024 11:40 AM COMMISSIONER OF OFFICIALS Office Visit [facility] Medical Group Diabetes and Endocrinology - [address] [phone] Eva Power MD [address] [place] [phone] documented as of this encounter Visit Diagnoses Not on filedocumented in this encounter
--- OUTSIDE RECORDS SUMMARY | 2024-05-08 05:46 | XMS_ITS | Encounter Summary ---
Author Organization [facility] Address [address] [place] [address]. [place] [address] [place] [address] Care Team Providers Care Shop Girl Name Role Phone Braydon Pavon Primary Care Provider Encounter Details Date Type Department Care Team (Late Contact Info) Description 05/13/2019 Orders Only [facility] [address] [address] Abi Vidal, [address] [place] [address] Social History Tobacco Use Types Packs/Day Years [...] (Late Contact Info) Description 05/10/2024 11:40 AM EDITOR & CO FOUNDER Office Visit [facility] Medical Group Diabetes and Endocrinology - [address] [phone] Eva Power MD [address] [place] [address] documented as of this encounter Visit Diagnoses Diagnosis Left knee pain- Primary Pain in joint, lower leg documented in this encounter Care Teams Shop Girl Relationship Specialty Start Date End Date Braydon Pavon PA [address] [place] [address] PCP - General PHYSICIAN EGG CASER 03/02/19 documented as of this encounter
--- OUTSIDE RECORDS SUMMARY | 2024-05-08 05:46 | XMS_ITS | Encounter Summary ---
Author Organization [facility] Address [address] [place] [address]. [place] [address] [place] [address] Care Team Providers Care Return Checker Name Role Phone Braydon Pavon Primary Care Provider [phone] Reason for Visit * Reason Onset Date Comments Appointment Request 01/27/2024 Encounter Details Date Type Department Care Team (Late st Contact Info) Description 01/27/2024 Telephone [facility] Medical Group Diabetes and Endocrinology - [address] [phone] Eva Power MD [address] [place] [address] Appointment Request Social History Tobacco Use [...] Caller name: Mayra, patients spouse Call back/ext. #:[phone] MyChart: No- caller prefers to be called via telephone Call details: She is requesting to make an appt for the patient. documented in this encounter Plan of Treatment Upcoming Encounters Date Type Department Care Team (Late st Contact Info) Description 05/10/2024 11:40 AM MAINT MECHANIC Office Visit [facility] Medical Group Diabetes and Endocrinology - [address] [phone] Eva Power MD [address] [place] [phone] documented as of this encounter Visit Diagnoses Not on filedocumented in this encounter Care Teams Return Checker Relationship Specialty Start Date End Date Braydon Pavon PA [address] [place] [address] PCP - General PHYSICIAN TEXTURE ARTIST 03/02/19 documented as of this encounter
--- OUTSIDE RECORDS SUMMARY | 2024-05-08 05:46 | XMS_ITS | Encounter Summary ---
Author Organization [facility] Address [address] [place] [address]. [place] [address] [place] [address] Care Team Providers Care Side Door Man Name Role Phone Unavailable Primary Care Provider Unavailabl e Encounter Details Date Type Department Care Team (Late Contact Info) Description 02/02/2018 Abstract [facility] [address] [place] [address] Gerry Faustin MD [address] [place] [address] Social History Tobacco Use Types Packs/Day [...] (Late Contact Info) Description 05/10/2024 11:40 AM INFORMATICS NURSE SPECIALIST Office Visit [facility] Medical Group Diabetes and Endocrinology - [address] [phone] Eva Power MD [address] [place] [phone] documented as of this encounter Procedures Procedure Name Priority Date/Time Associated Diagnosis Comments COMPREHENSIVE METABOLIC PANEL STAT 02/02/2018 12:05 AM CDT CBC W/DIFF AUTOMATED STAT 02/02/2018 12:05 AM CDT documented in this encounter Results * (ABNORMAL) COMPREHENSIVE METABOLIC PANEL (02/02/2018 12:05 AM CDT) SODIUM S/P/B 141 136 - 145 MMOL/L 02/02/2018 12:25 AM CDT [facility] POTASSIUM S/P/B 3.8 3.5 - 5.1 MMOL/L 02/02/2018 12:25 AM CDT [facility] CHLORIDE S/P/B 104 98 - 107 MMOL/L 02/02/2018 12:25 AM CDT [facility] CO2 24.1 21.0 - 32.0 MMOL/L 02/02/2018 12:25 AM CDT [facility] GLUCOSE 203(H) 70 - 140 MG/DL 02/02/2018 12:25 AM CDT [facility] BUN 12 6 - 24 MG/DL 02/02/2018 12:25 AM CDT [facility] CREATININE S/P/B 0.99 0.70 - 1.30 MG/DL 02/02/2018 12:25 AM CDT [facility] CALCIUM S/P/B 9.4 8.4 - 10.5 MG/DL 02/02/2018 12:25 AM CDT [facility] BILIRUBIN TOTAL S/P/B 1.3(H) 0.2 - 1.0 MG/DL 02/02/2018 12:25 AM CDT [facility] ALKALINE PHOSPHATASE S/P/B 99 45 - 115 U/L 02/02/2018 12:25 AM CDT [facility] AST 94(H) 15 - 37 U/L 02/02/2018 12:25 AM CDT [facility] ALT 116(H) 16 - 63 U/L 02/02/2018 12:25 AM CDT [facility] TOTAL PROTEIN S/P/B 7.9 6.4 - 8.2 G/DL 02/02/2018 12:25 AM CDT [facility] ALBUMIN S/P/B 3.7 3.4 - 5.0 G/DL 02/02/2018 12:25 AM CDT [facility] ANION GAP 12.9 MMOL/L 02/02/2018 12:25 AM CDT [facility] Comment:REFERENCE RANGE NOT ESTABLISHED OSMOLALITY (CALC) 298 MOSM/KG 018 12:25 AM CDT [facility] Comment:REFERENCE RANGE NOT ESTABLISHED EGFR NON-AFR. AMER. >90 >89 ML/MIN/1.7 3 M2 02/02/2018 12:25 AM CDT [facility] Comment: THE ESTIMATED GFR IS CALCULATED [...] ML/MIN/1.7 3 M2 02/02/2018 12:25 AM CDT [facility] Comment: THE ESTIMATED GFR IS CALCULATED [...] Conversion Md RED LABORATORY Final R esult [facility] [address] [place] [address], * (ABNORMAL) CBC W/DIFF AUTOMATED (02/02/2018 12:05 AM CDT) WBC 6.2 4.5 - 10.8 x10'3/uL 02/02/2018 12:14 AM CDT [facility] RBC 5.17 4.50 - 6.10 x10'6/uL 02/02/2018 12:14 AM CDT [facility] HGB 14.5 13.0 - 18.0 G/DL 02/02/2018 12:14 AM CDT [facility] HCT 42.4 37.0 - 52.0 % 02/02/2018 12:14 AM CDT [facility] MCV 82.0 78.0 - 100.0 FL 02/02/2018 12:14 AM CDT [facility] MCH 28.0 27.0 - 31.0 PG 02/02/2018 12:14 AM CDT [facility] MCHC 34.2 33.0 - 36.0 G/DL 02/02/2018 12:14 AM CDT [facility] RDW 15.2(H) 11.5 - 14.5 % 02/02/2018 12:14 AM CDT [facility] PLT 100(L) 150 - 350 x10'3/uL 02/02/2018 12:14 AM CDT [facility] MPV 10.4 7.4 - 10.4 FL 02/02/2018 12:14 AM CDT [facility] SEG NEUTROPHILS 72.2 % 8 12:14 AM CDT [facility] LYMPHOCYTES 13.8 % 02/02/2018 12:14 AM CDT [facility] MONOCYTES 9.5 % 02/02/2018 12:14 AM CDT [facility] EOSINOPHILS 2.9 % 02/02/2018 12:14 AM CDT [facility] BASOPHILS 1.0 % 02/02/2018 12:14 AM CDT [facility] IMMATURE GRANS % 0.6 % 02/03/20 18 12:14 AM CDT [facility] NRBC 0.0 % 02/02/2018 12:14 AM CDT [facility] ABS. NEUTROPHILS 4.48 1.60 - 8.30 x10'3/uL 02/02/2018 12:14 AM CDT [facility] ABS. LYMPHOCYTES 0.86 0.80 - 4.70 x10'3/uL 02/02/2018 12:14 AM CDT [facility] ABS. MONOCYTES 0.59 0.00 - 1.50 x10'3/uL 02/02/2018 12:14 AM CDT [facility] ABS. EOSINOPHILS 0.18 0.00 - 0.40 x10'3/uL 02/02/2018 12:14 AM CDT [facility] ABS. BASOPHILS 0.06 0.00 - 0.20 x10'3/uL 02/02/2018 12:14 AM CDT [facility] ABS. IMMATURE GRANULOCYTES 0.04(H) 0.00 - 0.03 x10'3/uL 02/02/2018 12:14 AM CDT [facility] ABS. NUCLEATED RBC'S 0.00 0.00 x10'3/uL 02/02/2018 12:14 AM CDT [facility] OTHER (type in comments) 02/02/2018 12:05 AM CDT 02/02/2018 12:07 AM CDT Comment:WHOLE BLOOD SAMPLE us Generic Conversion Md RED LABORATORY Final R esult [facility] [address] [place] [address], documented in this encounter Visit Diagnoses Diagnosis Noninfective gastroenteritis and colitis Other and unspecified noninfectious gastroenteritis and colitis documented in this encounter
--- OUTSIDE RECORDS SUMMARY | 2024-05-08 05:46 | XMS_ITS | Encounter Summary ---
Author Organization [facility] Address [address] [place] [address]. [place] [address] [place] [address] Care Team Providers Care Business Technology Architect Name Role Phone Unavailable Primary Care Provider Unavailabl e Encounter Details Date Type Department Care Team (Late Contact Info) Description 06/30/2018 [facility] Emergency Room [address] [place] [address] [place] [address] Lukas Corea MD [address] [place] [address] Social History Tobacco Use Types Packs/Day Years [...] (Late Contact Info) Description 05/10/2024 11:40 AM CHILDCARE PROVIDER Office Visit [facility] Diabetes and Endocrinology - [address] [address] Eva Power MD [address] [place] [address] documented as of this encounter Procedures Procedure Name Priority Date/Time Associated Diagnosis Comments COMPREHENSIVE METABOLIC PANEL STAT 06/30/2018 6:04 AM CHILDCARE PROVIDER CBC W/DIFF AUTOMATED STAT 06/30/2018 6:04 AM CHILDCARE PROVIDER LIPASE STAT 06/30/2018 6:04 AM CHILDCARE PROVIDER documented in this encounter Results * LIPASE (06/30/2018 6:04 AM CHILDCARE PROVIDER) LIPASE 117 73 - 393 UNITS/L 06/30/2018 7:30 AM CHILDCARE PROVIDER [facility] SERUM OR PLASMA SPECIMEN / Unknown 06/30/2018 6:04 AM CHILDCARE PROVIDER 06/30/2018 7:13 AM CHILDCARE PROVIDER us Generic Conversion Md RED LABORATORY Final R esult [facility] [address] [place] [id number], * (ABNORMAL) COMPREHENSIVE METABOLIC PANEL (06/30/2018 6:04 AM CHILDCARE PROVIDER) Pathologist [facility] SODIUM S/P/B 142 136 - 145 MMOL/L 06/30/2018 7:30 AM [facility] POTASSIUM S/P/B 3.7 3.5 - 5.1 MMOL/L 06/30/2018 7:30 AM [facility] CHLORIDE S/P/B 104 98 - 107 MMOL/L 06/30/2018 7:30 AM [facility] CO2 31.0 21.0 - 32.0 MMOL/L 06/30/2018 7:30 AM [facility] GLUCOSE 144(H) 70 - 140 MG/DL 06/30/2018 7:30 AM [facility] BUN 15 6 - 24 MG/DL 06/30/2018 7:30 AM [facility] CREATININE S/P/B 0.93 0.70 - 1.30 MG/DL 06/30/2018 7:30 AM [facility] CALCIUM S/P/B 9.7 8.4 - 10.5 MG/DL 06/30/2018 7:30 AM [facility] BILIRUBIN TOTAL S/P/B 0.9 0.2 - 1.0 MG/DL 06/30/2018 7:30 AM [facility] ALKALINE PHOSPHATASE S/P/B 73 45 - 115 U/L 06/30/2018 7:30 AM [facility] AST 43(H) 15 - 37 U/L 06/30/2018 7:30 AM [facility] ALT 56 16 - 63 U/L 06/30/2018 7:30 AM [facility] TOTAL PROTEIN S/P/B 7.7 6.4 - 8.2 G/DL 06/30/2018 7:30 AM [facility] ALBUMIN S/P/B 3.4 3.4 - 5.0 G/DL 06/30/2018 7:30 AM [facility] ANION GAP 7.0 MMOL/L 06/30/2018 7:30 AM [facility] Comment:REFERENCE RANGE NOT ESTABLISHED OSMOLALITY (CALC) 297 MOSM/KG 06/30/2018 7:30 AM [facility] Comment:REFERENCE RANGE NOT ESTABLISHED EGFR NON-AFR. AMER. >90 >89 ML/MIN/1 .73 M2 06/30/2018 7:30 AM [facility] EGFR AFR. AMER. >90 >89 ML/MIN/1 .73 M2 06/30/2018 7:30 AM [facility] GFR NOTES THE ESTIMATED GFR IS CALCULATED USING THE 2009 CKD-EPI EQUATION. THE FOLLOWING CATEGORIES FOR GRADING RENAL FUNCTION ARE RECOMMENDED BY THE INTERNATIONAL SOCIETY OF NEPHROLOGY (KDIGO 2012 CLINICAL PRACTICE GUIDELINE). 06/30/2018 7:30 AM [facility] Comment: G1,NORMAL OR HIGH: >89 ml/min/1.73 m2G2,MILDLY DECREASED: 60-89 ml/min/1.73 m2G3A,MILDLY TO MODERATELY DECREASED: 45-59 ml/min/1.73 m2G3B,MODERATELY TO SEVERELY DECREASED: 30-44 ml/min/1.73 m2G4,SEVERELY DECREASED: 15-29 ml/min/1.73 m2G5,KIDNEY FAILURE: <15 ml/min/1.73 m2 PLASMA SPECIMEN / Unknown 06/30/2018 6:04 AM CHILDCARE PROVIDER 06/30/2018 7:13 AM CHILDCARE PROVIDER us Generic Conversion Md RED LABORATORY Final R esult [facility] [address] [place] [address], * (ABNORMAL) CBC W/DIFF AUTOMATED (06/30/2018 6:04 AM CHILDCARE PROVIDER) WBC 5.9 4.5 - 10.8 x10'3/uL 06/30/2018 7:39 AM [facility] RBC 4.83 4.50 - 6.10 x10'6/uL 06/30/2018 7:39 AM [facility] HGB 12.9(L) 13.0 - 18.0 G/DL 06/30/2018 7:39 AM [facility] HCT 39.4 37.0 - 52.0 % 06/30/2018 7:39 AM [facility] MCV 81.6 78.0 - 100.0 FL 06/30/2018 7:39 AM [facility] MCH 26.7(L) 27.0 - 31.0 PG 06/30/2018 7:39 AM [facility] MCHC 32.7(L) 33.0 - 36.0 G/DL 06/30/2018 7:39 AM [facility] RDW 15.5(H) 11.5 - 14.5 % 06/30/2018 7:39 AM [facility] PLT 88(L) 150 - 350 x10'3/uL 06/30/2018 7:39 AM [facility] MPV 12.1(H) 7.4 - 10.4 FL 06/30/2018 7:39 AM [facility] SEG NEUTROPHILS 81.2 % 9 7:52 AM [facility] LYMPHOCYTES 9.4 % 06/30/2018 7:52 AM [facility] MONOCYTES 7.7 % 06/30/2018 7:52 AM [facility] EOSINOPHILS 0.9 % 06/30/2018 7:52 AM [facility] BASOPHILS 0.3 % 06/30/2018 7:52 AM [facility] IMMATURE GRANS % 0.5 % 06/30/19 19 7:52 AM [facility] NRBC 0.0 % 06/30/2018 7:52 AM [facility] ABS. NEUTROPHILS 4.80 1.60 - 8.30 x10'3/uL 06/30/2018 7:52 AM [facility] ABS. LYMPHOCYTES 0.55(L) 0.80 - 4.70 x10'3/uL 06/30/2018 7:52 AM [facility] ABS. MONOCYTES 0.45 0.00 - 1.50 x10'3/uL 06/30/2018 7:52 AM [facility] ABS. EOSINOPHILS 0.05 0.00 - 0.40 x10'3/uL 06/30/2018 7:52 AM [facility] ABS. BASOPHILS 0.02 0.00 - 0.20 x10'3/uL 06/30/2018 7:52 AM [facility] ABS. IMMATURE GRANULOCYTES 0.03 0.00 - 0.03 x10'3/uL 06/30/2018 7:52 AM [facility] ABS. NUCLEATED RBC'S 0.00 0.00 x10'3/uL 06/30/2018 7:52 AM [facility] PLT MORPH. DECREASED 06/30/2018 7:52 AM [facility] RBC MORPHOLOGY 1+ 06/30/2018 7:52 AM [facility] Comment:ANISOCYTOSIS1+POIKIL OCYTOSIS OTHER (type in comments) 06/30/2018 6:04 AM CHILDCARE PROVIDER 06/30/2018 7:13 AM CHILDCARE PROVIDER Comment:WHOLE BLOOD SAMPLE us Generic Conversion Md RED LABORATORY Final R esult [facility] [address] [place], [place] [address] [phone] documented in this encounter Visit Diagnoses Diagnosis Abdominal pain Abdominal pain, unspecified site documented in this encounter
--- OUTSIDE RECORDS SUMMARY | 2024-05-08 05:46 | XMS_ITS | Encounter Summary ---
Author Organization [facility] Address [facility] [place] [address] [place] [address] Care Team Providers Care Commercial Appraiser Name Role Phone Braydon Pavon Primary Care Provider [phone] Reason for Visit * Reason Comments Consult spinal stenosis- has not had imaging done in the last year * Consultation (Routine) - Closed Specialty Diagnoses / Procedures Referred By Jordan casillas Referred To Contact NEUROSURGERY Diagnoses Spinal stenosis spinal stenosis Procedures DAYCARE ASSISTANT consultation Braydon Pavon PA [address] [place] [address] Phone: tel: fax: Bola Feldman MD Phone: tel: fax: Referral ID Status Reason Start Date Expiration Date V isits Requested Visits Authorized [id number] Closed Consultation 05/10/2019 05/10/2020 1 1 Encounter Details Date Type Department Care Team (Latest Contact Info) Description 05/23/2019 10:40 AM HEADER OPERATOR Office Visit [facility] - [address] [address] Bola Feldman MD [facility] [address] [address] Consult (spinal stenosis- has not [...] Comments Blood Pressure 145/85 05/23/2019 10:48 AM HEADER OPERATOR Pulse 113 05/23/2019 10:48 AM HEADER OPERATOR Temperature - - Respiratory Rate - - Oxygen Saturation 97% 05/23/2019 10:48 AM HEADER OPERATOR Inhaled Oxygen Concentration - - Weight 122 kg (269 lb) 05/23/2019 10:48 AM HEADER OPERATOR Height 172.7 cm (5' 8 ) 05/23/2019 10:48 AM HEADER OPERATOR Body Mass Index 40.9 05/23/2019 10:48 AM HEADER OPERATOR documented in this encounter Progress Notes * Ying Jc RN - 05/23/2019 10:40 AM CSTAddended by: YING JC on: 05/24/2019 02:55 PM Modules accepted: Orders ER OPERATOR * Bola Feldman MD - 05/23/2019 10:40 [...] be able to have an MRI from [facility] in [place] which can come dated. He will also be able to follow-up with his spray painter for possible injections. Recommendations: We will [...] originally had his liver issues treated at [facility] in [place] but they no longer take his insurance [...] up to have injections with pa in housing management representative but his insurance changed and patient is [...] Base) MCG/ACT inhaler ??? vitamin D2, ergocalciferol, [address] UNITS capsule Take 50,000 Units by mouth [...] Provider: Bola Feldman MD Primary Care Physician: SONALI CURRIE ER OPERATOR ER OPERATOR documented in this encounter Plan of Treatment Upcoming Encounters Date Type Department Care Team (Late st Contact Info) Description 05/10/2024 11:40 AM HEADER OPERATOR Office Visit [facility] Medical Group Diabetes and Endocrinology - [address] [phone] Eva Power MD [address] [place] [address] documented as of this encounter Visit Diagnoses Diagnosis Lumbar degenerative disc disease- Primary Degeneration of lumbar or lumbosacral intervertebral disc documented in this encounter Care Teams Commercial Appraiser Relationship Specialty Start Date End Date Braydon Pavon PA [address] [place] [address] PCP - General PHYSICIAN DIRECTOR OUTPATIENT SERVICES 03/02/19 documented as of this encounter
--- OUTSIDE RECORDS SUMMARY | 2024-05-08 05:46 | XMS_ITS | Encounter Summary ---
Author Organization [facility] Address [address] [place] [address]. 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 Social History Tobacco Use Types [...] st Contact Info) Description 05/10/2024 11:40 AM NETWORK SYSTEMS ENGINEER Office Visit [facility] Diabetes and Endocrinology - [address] [address] Eva Power MD [address] [place] [phone] documented as of this encounter Visit Diagnoses Not on filedocumented in this encounter
--- OUTSIDE RECORDS SUMMARY | 2024-05-08 05:46 | XMS_ITS | Encounter Summary ---
Author Organization [facility] Address [address] [place] [address] Care Team Providers Care Trail Maintenance Worker Name Role Phone Braydon Pavon Primary Care Provider [phone] Reason for Visit * Reason Comments Appointment Encounter Details Date Type Department Care Team (Late Contact Info) Description 05/19/2018 Telephone [facility] - [address] [facility], [facility] [place] [phone] Braydon Pavon PA [address] [place] [phone] Appointment Social History Tobacco Use Types Packs/Day Years Used Date Smoking Tobacco: Never Assessed Sex and Gender Information Value Date Recorded Sex Assigned at Not on file Gender Identity Not on file Sexual Orientation Not on file documented as of this encounter Progress Notes * Kassie Fuentes - 05/19/2018 1:28 PM CST PT TO CALL FOR APPT W/ [facility]IC. RECORDS SCANNED RGRADUATE ADVISOR documented in this encounter Plan of Treatment Upcoming Encounters Date Type Department Care Team (Late Contact Info) Description 02/17/2024 11:59 PM CDT Anesthesia Event [facility] MRI [address] [place] [id number] Pushpa Frey, [place] [address] [facility] [address] [address] 05/20/2024 12:30 PM UNDERGRADUATE ADVISOR Appointment [facility] MRI [address] [place] [address] Steve Bedolla MD [address] [place] [address] documented as of this encounter Visit Diagnoses Not on filedocumented in this encounter Care Teams Trail Maintenance Worker Relationship Specialty Start Date End Date Braydon Pavon PA [address] [place] [address] PCP - General Physician Director Nursing Service 05/19/18 10/03/18 documented as of this encounter
--- OUTSIDE RECORDS SUMMARY | 2024-05-08 05:46 | XMS_ITS | Encounter Summary ---
Author Organization [facility] Address [address] [place] [address]. [place] [address] [place] [address] Care Team Providers Care Ocean Export Coordinator Name Role Phone Unavailable Primary Care Provider Unavailabl e Encounter Details Date Type Department Care Team (Latest Contact Info) Description 11/19/2017 Abstract [facility] Social [...] st Contact Info) Description 05/10/2024 11:40 AM DIRECTOR OF PRECLINICAL RESEARCH Office Visit [facility] Diabetes and Endocrinology - [address] [phone] Eva Power MD [address] [place] [phone] documented as of this encounter Visit Diagnoses Not on filedocumented in this encounter
--- OUTSIDE RECORDS SUMMARY | 2024-05-08 05:46 | XMS_ITS | Encounter Summary ---
Author Organization [facility] Address [facility]. [place], [place] [address] [place] [address] Care Team Providers Care Ct Tech Name Role Phone Unavailable Primary Care Provider Unavailabl e Encounter Details Date Type Department Care Team (Latest Contact Info) Description 10/16/2016 Abstract [facility] Social History Tobacco Use [...] Guzman Task Name: Renew Medication [facility] Team Regarding Patient: PatricioDavidshantelle Gilliam, Status: Active Comment: Ying Guzman - 16 Oct 2016 2:35 PM TASK CREATED Called on Thursday or Thursday. Waiting on override for persciption. Please call Subhash from [employer] at [phone]. Nimco Monroe - 16 Oct 2016 4:59 [...] Nimco Monroe, ; Oct 16 2016 5:00PM CHIEF UNDERWRITER (Author) documented in this encounter Plan of Treatment Upcoming Encounters Date Type Department Care Team (Late st Contact Info) Description 05/10/2024 11:40 AM CHIEF UNDERWRITER Office Visit [facility] Group Diabetes and Endocrinology - [address] [phone] Eva Power MD [address] [place] [address] documented as of this encounter Visit Diagnoses Not on filedocumented in this encounter
--- OUTSIDE RECORDS SUMMARY | 2024-05-08 05:46 | XMS_ITS | Encounter Summary ---
Author Organization [facility] Address [address] [place] [address]. [place] [address] [place] [address] Care Team Providers Care Bait Digger Name Role Phone Unavailable Primary Care Provider Unavailabl e Encounter Details Date Type Department Care Team (Late Contact Info) Description 04/16/2017 [facility] Emergency Room [address] [place] [address] [place] [address] Lukas Corea MD [address] [place] [address] Social History Tobacco Use Types Packs/Day Years [...] (Late Contact Info) Description 05/10/2024 11:40 AM LENS COATING TECHNICIAN Office Visit [facility] Medical Group Diabetes and Endocrinology - [address] [phone] Eva Power MD [address] [place] [address] [place] [address] documented as of this encounter Procedures Procedure Name Priority Date/Time Associated Diagnosis Comments INFLUENZA A & B STAT 04/16/2017 11:00 AM LENS COATING TECHNICIAN documented in this encounter Results * INFLUENZA A & B (04/16/2017 11:00 AM LENS COATING TECHNICIAN) SPEC DESCRIPTION NASOPHARYNGEAL SWAB 04/16/2017 11:38 AM LENS COATING TECHNICIAN [facility] SPECIAL REQUESTS NO SPECIAL REQUEST 04/16/2017 11:38 AM LENS COATING TECHNICIAN [facility] RESULT NEGATIVE 04/16/2017 12:08 PM LENS COATING TECHNICIAN [facility] RESULT A NEGATIVE RESULT DOES NOT EXCLUDE INFLUENZA VIRUS INFECTION. ??IF INFLUENZA IS CIRCULATING IN YOUR COMMUNITY, A DIAGNOSIS OF INFLUENZA SHOULD BE CONSIDERED BASED ON A PATIENT'S CLINICAL PRESENTATION AND EMPIRIC ANTIVIRAL TREATMENT SHOULD BE CONSIDERED IF INDICATED. 04/16/2017 12:08 PM LENS COATING TECHNICIAN [facility] NASOPHARYNGEAL SWAB / Unknown 04/16/2017 11:00 AM LENS COATING TECHNICIAN 04/16/2017 11:48 AM LENS COATING TECHNICIAN us Generic Conversion Md RED MICROBIOLOGY - GENERAL ORDERABLES Final Result [facility] [address] [place] [address], documented in this encounter Visit Diagnoses Diagnosis Acute bronchitis documented in this encounter
--- OUTSIDE RECORDS SUMMARY | 2024-05-08 05:46 | XMS_ITS | Encounter Summary ---
Author Organization [facility] Address [address] [place] [address]. [place], [place] [address] [place] [address] Care Team Providers Care Custodial Maintenance Worker Name Role Phone Unavailable Primary Care Provider Unavailabl e Encounter Details Date Type Department Care Team (Latest Contact Info) Description 09/25/2017 Abstract [facility] Social History [...] Espinoza Task Name: Call Back Assigned To: [facility] Nurse Team Regarding Patient: Camilo Curry, [...] Matrix brand, sent to pharmacy, [facility] [place]. I have called pharmacy and they are [...] 1:22 AM TASK REASSIGNED: Previously Assigned To [facility] Nurse Team Marry Holm - 25 Sep 2017 12:23 PM TASK EDITED Prior Auth initiated. Marry Holm - 25 Sep 2017 1:23 PM TASK EDITED [facility] [employer] and the insurance company was also call at [phone] and it was explained that this was an urgent request as patient waited until he was out of insulin to contact us. Marry Holm - 25 Sep 2017 1:23 PM TASK IN PROGRESS Signatures Electronically signed by : Marry Holm R.N.; Oct 06 2017 4:55PM RESEARCH & ANALYTICS MANAGER (Author) documented in this encounter Plan of Treatment Upcoming Encounters Date Type Department Care Team (Late st Contact Info) Description 05/10/2024 11:40 AM RESEARCH & ANALYTICS MANAGER Office Visit [facility] Diabetes and Endocrinology - [address] [phone] Eva Power MD [address] [place] [address] documented as of this encounter Visit Diagnoses Not on filedocumented in this encounter
--- OUTSIDE RECORDS SUMMARY | 2024-05-08 05:46 | XMS_ITS | Encounter Summary ---
Author Organization [facility] Address [address] [place] [address]. [place] [address] [place] [address] Care Team Providers Care Nonprofit Fundraiser Name Role Phone Unavailable Primary Care Provider Unavailabl e Encounter Details Date Type Department Care Team (Latest Contact Info) Description 11/17/[address] [facility] Social History Tobacco Use [...] Contact Info) Description 05/10/2024 11:40 AM MANAGER STONE Office Visit [facility] Diabetes and Endocrinology - [address] [phone] Eva Power MD [address] [place] [phone] documented as of this encounter Visit Diagnoses Not on filedocumented in this encounter
--- OUTSIDE RECORDS SUMMARY | 2024-05-08 05:46 | XMS_ITS | Encounter Summary ---
Author Organization [facility] Address [address] [place] [address]. [place], [place] [address] [place] [address] Care Team Providers Care Patient Transportation Driver Name Role Phone Unavailable Primary Care Provider Unavailabl e Encounter Details Date Type Department Care Team (Latest Contact Info) Description 11/12/2017 Abstract [facility] Social History [...] 100 strips for 28 days. Pharmacist said [place] has no copay for strips. He also [...] out of the office tomorrow at an [facility] meeting, Leadership and PM meeting. If patient calls, ask the PSR to inform him I will call on Thursday. Thank you, Marry Barlow - 12 Nov 2017 9:53 AM TASK EDITED Noted. Informed PSR's to give his calls to water project manager, not to nursing staff. Signatures Electronically signed by : Marry Holm R.N.; Nov 12 2017 9:54AM NATIONAL VAN OWNER OPERATOR (Author) documented in this encounter Plan of Treatment Upcoming Encounters Date Type Department Care Team (Late st Contact Info) Description 05/10/2024 11:40 AM NATIONAL VAN OWNER OPERATOR Office Visit [facility] Medical Group Diabetes and Endocrinology - [address] [phone] Eva Power MD [address] [place] [address] documented as of this encounter Visit Diagnoses Not on filedocumented in this encounter
--- OUTSIDE RECORDS SUMMARY | 2024-05-08 05:46 | XMS_ITS | Encounter Summary ---
Author Organization [facility] Address [address] [place] [address]. [place] [address] [place] [address] Care Team Providers Care Cut Out Worker Name Role Phone Braydon Pavon Primary Care Provider [phone] Encounter Details Date Type Department Care Team [...] st Contact Info) Description 05/10/2024 11:40 AM STOGY ROLLER Office Visit [facility] Medical Group Diabetes and Endocrinology - [address] [phone] Eva Power MD [address] [place] [address] documented as of this encounter Visit Diagnoses Not on filedocumented in this encounter Care Teams Cut Out Worker Relationship Specialty Start Date End Date Braydon Pavon PA [address] [place] [address] PCP - General PHYSICIAN SKI TECHNICIAN 03/02/19 documented as of this encounter
--- OUTSIDE RECORDS SUMMARY | 2024-05-08 05:46 | XMS_ITS | Encounter Summary ---
Author Organization [facility] Address [address] [place] [address]. [place] [address] [place] [address] Care Team Providers Care Brick Pitcher Name Role Phone Unavailable Primary Care Provider Unavailabl e Encounter Details Date Type Department Care Team (Late st Contact Info) Description 12/09/[address] [facility] Diabetes and Endocrinology - [address] [phone] [place] [address] [place] [phone] Social History Tobacco Use Types Packs/Day Years [...] GI in [place] - Dr. Bev Ellis ([facility]). A1c 7.7 (September 2016) The HbA1c [...] therapy; KATLYN = N; Verified Transmission to [employer]; Msg to Pharmacy: D/c Humalog, d/c Lantus; [...] HCl - 500 MG Oral Tablet; Therapy: (Recorded:[id number]) to Recorded Dispense: 0 Days ; #: Sufficient TABS; Refill: 0; KATLYN = N; Record; Last Updated By: Judy Ledesma;01/03/2015 11:58:23 PM 7. Omeprazole 20 MG Oral Capsule Delayed Release; TAKE 1 CAPSULE DAILY EVERY MORNING BEFORE BREAKFAST; Therapy: [id number] to Recorded Rx By: Eva Power; Dispense: 0 Days ; #: Sufficient Capsule Delayed Release; Refill: 0; KATLYN = N;Record 8. OneTouch Ultra Blue In Vitro Strip; TESTING 3 TIMES DAILY; Therapy: [id number] to (Evaluate:[id number]) Requested for: 98Qpl4861; Last Rx:[id number] Ordered Rx By: Eva Power; Dispense: 90 Days ; #:3 X 100 Strip Box; Refill: 3; For: Uncontrolled type 2 diabetes mellitus with insulin therapy; KATLYN = N; Verified Transmission to [employer]; Last Updated By: Kenji PhillipsSevo Nutraceuticalsdenys; 12/09/2016 12:11:17 PM 9. Xanax TABS; Therapy: (Recorded:[id number]) to Recorded Dispense: 0 Days ; #: Sufficient TABS; Refill: 0; KATLYN = N; Record; Last Updated By: Judy Ledesma;01/03/2015 11:58:23 PM 10. Xifaxan 550 MG Oral Tablet; Therapy: [id number] to Recorded Rx By: Eva Power; Dispense: [...] Eva Power; 09/09/2016 10:27:05 PM Vitals Recorded: 85Pmd1877 11:45AM Heart Rate 94 Systolic 126 Diastolic [...] Normal. Results/Data *Glucose, Whole Blood In Office 45Wja1434 11:47AM Eva Power Test Name Result Flag Reference Glucose Finger Stick 242 mg/dl 70 - 110 mg/dl *A1C In Office 81Oxy0307 11:46AM Eva Power Test Name Result Flag [...] recommended for children and adults.; Status:Complete; Done: [id number] Ordered; For:Morbid obesity with BMI of 40.0-44.9, adult; Ordered By:Eva Power; 2. We recommend that you follow the Mediterranean diet. ; Status:Complete; Done: [id number] Ordered; For:Morbid obesity with BMI of 40.0-44.9, adult; Ordered By:Eva Power; 3. [employer] Ultra Mini w/Device Kit; USE DIRECTED Rx By: Eva Power; Dispense: 0 Days ; #:1 Kit; Refill: 0; For: Uncontrolled type 2 diabetes mellitus with insulin therapy; KATLYN = N; Verified Transmission to [employer]; Last Updated By: [email or web address]; 12/09/2016 12:11:19 PM 4. HumuLIN R U-500 KwikPen 500 UNIT/ML Subcutaneous Solution Pen-injector; inject 150 units before breakfast and lunch, and 100 untis before supper Rx By: Eva Power; Dispense: 0 Days ; #:4 X 3 ML Pen (2 Pens); Refill: 11; For: Uncontrolled type 2 diabetes mellitus with insulin therapy; KATLYN = N; Verified Transmission to [employer]; Last Updated By: Jibbigo [employer] Savvy; 12/09/2016 12:11:18 PM 5. OneTouch Ultra Blue In Vitro Strip; TESTING 6 TIMES DAILY Rx By: Eva Power; Dispense: 0 Days ; #:2 X 100 Strip Box; Refill: 11; For: Uncontrolled type 2 diabetes mellitus with insulin therapy; KATLYN = N; Verified Transmission to [employer]; Last Updated By: Jibbigo [employer]; 12/09/2016 12:11:17 PM 6. *A1C In Office; Status:Complete; Done: 22Quc9146 11:46AM Performed:In Office; Due:74Twa6606; Last Updated By:Chantelle Espinoza; 12/09/2016 11:47:16 AM;Ordered; For:Uncontrolled type 2 diabetes mellitus with insulin therapy; Ordered By:Eva Power; 7. *Glucose, Whole Blood In Office; Status:Complete; Done: 92Fdi8469 11:47AM Performed:In Office; Due:[id number]; Last Updated By:Chantelle Espinoza; 12/09/2016 11:47:16 AM;Ordered; For:Uncontrolled type 2 diabetes mellitus with insulin therapy; Ordered By:Eva Power; 8. CMP (Comprehensive Metabolic Profile); Status:Active; Requested for:11May2017; Perform:Other Lab; Due:[id number];Ordered; For:Uncontrolled type 2 diabetes mellitus with insulin therapy; Ordered By:Eva Power; 9. Hemoglobin A1C Profile; Status:Active; Requested for:11May2017; Perform:Other Lab; Due:87Sem3345;Ordered; For:Uncontrolled type 2 diabetes mellitus with insulin therapy; Ordered By:Eva Power; 10. TSH (Thyroid Stim Hormone); Status:Active; Requested for:11May2017; Perform:Other Lab; Due:10Jun2017;Ordered; For:Uncontrolled type 2 diabetes mellitus with insulin therapy; Ordered By:Eva Power; 11. Urine Microalbumin Profile; Status:Active; Requested for:11May2017; Perform:Other Lab; Due:82Pze1620;Ordered; For:Uncontrolled type 2 diabetes mellitus with insulin [...] Eva Power M.D.; Dec 09 2016 10:20PM WRITER TECHNICAL PUBLICATIONS (Author) documented in this encounter Plan of Treatment Upcoming Encounters Date Type Department Care Team (Late st Contact Info) Description 05/10/2024 11:40 AM WRITER TECHNICAL PUBLICATIONS Office Visit [facility] Medical Group Diabetes and Endocrinology - [address] [phone] Eva Power MD [address] [place] [address] documented as of this encounter Procedures [...]
--- OUTSIDE RECORDS SUMMARY | 2024-05-08 05:46 | XMS_ITS | Encounter Summary ---
Author Organization [facility] Address [address] [place] [address]. [place] [address] [place] [address] Care Team Providers Care Help Desk Operator Name Role Phone Unavailable Primary Care Provider Unavailabl e Encounter Details Date Type Department Care Team (Late Contact Info) Description 02/07/2017 Abstract [facility] [address] [facility] [place] [address] Sameera Villa MD [address] [place] [address] Social History Tobacco Use Types [...] Contact Info) Description 05/10/2024 11:40 AM AUTO GLASS INSTALLER Office Visit [facility] Medical Group Diabetes and Endocrinology - [address] [phone] Eva Power MD [address] [facility] [place] [address] documented as of this encounter Procedures Procedure Name Priority Date/Time Associated Diagnosis Comments STREP A, DNA Routine 02/07/2017 6:55 AM CDT RAPID STREP A STAT 02/07/2017 6:55 AM CDT documented in this encounter Results * STREP A, DNA (02/07/2017 6:55 AM CDT) SPEC DESCRIPTION THROAT 02/07/2017 7:12 AM CDT [facility] SPECIAL REQUESTS NO SPECIAL REQUEST 02/07/2017 7:12 AM CDT [facility] RESULT NEGATIVE 02/07/2017 8:09 AM CDT [facility] THROAT SWAB / Unknown 02/07/2017 6:55 AM CDT 02/07/2017 7:12 AM CDT us Generic Conversion Md RED MICROBIOLOGY - GENERAL ORDERABLES Final Result Performing Organization Address [facility] Co de Phone Number [place] [phone] [place] [address], * RAPID STREP A (02/07/2017 6:55 AM CDT) SPEC DESCRIPTION THROAT 02/07/2017 7:03 AM CDT [facility] SPECIAL REQUESTS NO SPECIAL REQUEST 02/07/2017 7:03 AM CDT [facility] RAPID STREP TEST NEGATIVE 02/07/2017 7:12 AM CDT [facility] THROAT SWAB / Unknown 02/07/2017 6:55 AM CDT 02/07/2017 7:08 AM CDT us Generic Conversion Md RED MICROBIOLOGY - GENERAL ORDERABLES Final Result Performing Organization Address City/[facility]/ZIP Co de Phone Number [facility] [address] [place] [address], documented in this encounter Visit Diagnoses Diagnosis Acute pharyngitis documented in this encounter
--- OUTSIDE RECORDS SUMMARY | 2024-05-08 05:46 | XMS_ITS | Encounter Summary ---
Author Organization [facility] Address [address] [place] [address]. [place] [address] [place] [address] Care Team Providers Care Gear Machine Operator Name Role Phone Unavailable Primary Care Provider Unavailabl e Encounter Details Date Type Department Care Team (Late Contact Info) Description 10/07/2017 Abstract [place] [facility] [facility] [place] [address] Gregg Blandon MD [address], [place] [phone] Social History Tobacco Use Types Packs/Day Years [...] Contact Info) Description 05/10/2024 11:40 AM EVENT PLANNING INTERN Office Visit [facility] Medical Group Diabetes and Endocrinology - [address] [phone] Eva Power MD [address] [place] [address] documented as of this encounter Procedures [...] COLOR (U) YELLOW 10/07/2017 1:44 AM CDT [facility] TRANSPARENCY CLEAR 10/07/2017 1:44 AM CDT [facility] SPECIFIC GRAVITY (U) 1.020 1.000 - 1.025 10/07/2017 1:44 AM CDT [facility] U PH 6.0 5.0 - 8.0 10/07/2017 1:44 AM CDT [facility] LEUKOCYTES (U) NEGATIVE NEGATIVE 10/07/2017 1:44 AM CDT [facility] NITRITES NEGATIVE NEGATIVE 10/07/2017 1:44 AM CDT [facility] PROTEIN (U) NEGATIVE NEGATIVE 10/07/2017 1:44 AM CDT [facility] URINE GLUCOSE 3+(A) NEGATIVE 10/07/2017 1:44 AM CDT [facility] KETONES MG/DL (U) NEGATIVE NEGATIVE 10/07/2017 1:44 AM CDT [facility] UROBILINOGEN 0.2 <1.0 EU/DL 10/07/2017 1:44 AM CDT [facility] BILIRUBIN (U) NEGATIVE NEGATIVE 10/07/2017 1:44 AM CDT [facility] BLOOD (U) NEGATIVE NEGATIVE 10/07/2017 1:44 AM CDT [facility] WBC/HPF 0-5 0 - 5 /HPF 10/07/2017 1:44 AM CDT [facility] RBC/HPF 0-5 0 - 5 /HPF 10/07/2017 1:44 AM CDT [facility] EPI/HPF OCCASIONAL /LPF 10/07/2017 1:44 AM CDT [facility] BACTERIA (U) 1+ /HPF 10/07/2017 1:44 AM CDT [facility] MUCUS PRESENT 10/07/2017 1:44 AM CDT [facility] CULTURE & SENSITIVITY INDICATED? NOT INDICATED 10/07/2017 1:46 AM CDT [facility] Comment: CORRECTION CALLED TO NICHOLAS IN ER AT 0145 ON 10/07/17 RBV CORRECTED ON 10/07 AT 0146: PREVIOUSLY REPORTED NONE SEEN OTHER (type in comments) 10/07/2017 1:20 AM CDT 10/07/2017 1:35 AM CDT Comment:URINE SPECIMEN~URINE SPECIMEN us Generic Conversion Md RED URINE ORDERABLES Edited Result - Final Performing Organization Address City/[facility]/ZIP Co de Phone Number [facility] [address] [place] [address], * LIPASE (10/07/2017 12:53 AM CDT) LIPASE 39 8 - 78 UNITS/L 10/07/2017 1:21 AM CDT [facility] SERUM OR PLASMA SPECIMEN / Unknown 10/07/2017 12:53 AM CDT 10/07/2017 12:56 AM CDT us Generic Conversion Md RED LABORATORY Final R esult Performing Organization Address City/[facility]/ZIP Co de Phone Number [facility] [address] [place] [address], * (ABNORMAL) COMPREHENSIVE METABOLIC PANEL (10/07/2017 12:53 AM CDT) GLUCOSE 363(H) 70 - 99 MG/DL 10/07/2017 1:21 AM CDT [facility] BUN 12 9 - 21 MG/DL 10/07/2017 1:21 AM CDT [facility] CREATININE S/P/B 0.97 0.72 - 1.25 MG/DL 10/07/2017 1:21 AM [facility] SODIUM S/P/B 136 136 - 145 MMOL/L 10/07/2017 1:21 AM [facility] POTASSIUM S/P/B 4.4 3.5 - 5.1 MMOL/L 10/07/2017 1:21 AM [facility] CHLORIDE S/P/B 101 98 - 107 MMOL/L 10/07/2017 1:21 AM [facility] CO2 24.0 22.0 - 29.0 MMOL/L 10/07/2017 1:21 AM [facility] CALCIUM S/P/B 10.0 8.4 - 10.2 MG/DL 10/07/2017 1:21 AM [facility] BILIRUBIN TOTAL S/P/B 1.1 0.2 - 1.2 MG/DL 10/07/2017 1:21 AM [facility] TOTAL PROTEIN S/P/B 7.6 6.0 - 8.3 G/DL 10/07/2017 1:21 AM [facility] ALBUMIN S/P/B 4.1 3.5 - 5.2 G/DL 10/07/2017 1:21 AM [facility] AST 51(H) 5 - 34 U/L 10/07/2017 1:21 AM [facility] ALT 59(H) 0 - 55 U/L 10/07/2017 1:21 AM [facility] ALKALINE PHOSPHATASE S/P/B 89 50 - 136 U/L 10/07/2017 1:21 AM [facility] OSMOLALITY (CALC) 286 275 - 300 MOSM/KG 10/07/2017 1:21 AM [facility] A/G RATIO 1.2 1.0 - 1.6 RATIO 10/07/2017 1:21 AM [facility] BUN CREATININE RATIO 12.4 12 - 20 10/07/2017 1:21 AM [facility] ANION GAP 11.0 7 - 16 MMOL/L 10/07/2017 1:21 AM [facility] EGFR NON-AFR. AMER. >60 >60 ML/MIN/1.7 3 M2 10/07/2017 1:21 AM CDT [facility] EGFR AFR. AMER. >60 >60 ML/MIN/1.7 3 M2 10/07/2017 1:21 AM CDT [facility] 10/07/2017 12:5 3 AM CDT 10/07/2017 12:56 AM CDT us Generic Conversion Md RED LABORATORY Final R esult [facility] [address] [place] [address], * (ABNORMAL) CBC W/DIFF AUTOMATED (10/07/2017 12:53 AM CDT) WBC 4.5 4.5 - 10.8 x10'3/uL 10/07/2017 1:01 AM CDT [facility] RBC 5.10 4.50 - 6.10 x10'6/uL 10/07/2017 1:01 AM CDT [facility] HGB 14.3 13.0 - 18.0 G/DL 10/07/2017 1:01 AM CDT [facility] HCT 42.2 37.0 - 52.0 % 10/07/2017 1:01 AM CDT [facility] MCV 82.7 78.0 - 100.0 FL 10/07/2017 1:01 AM CDT [facility] MCH 28.0 27.0 - 31.0 PG 10/07/2017 1:01 AM CDT [facility] MCHC 33.9 33.0 - 36.0 G/DL 10/07/2017 1:01 AM CDT [facility] RDW 14.6(H) 11.5 - 14.5 % 10/07/2017 1:01 AM CDT [facility] PLT 90(L) 150 - 350 x10'3/uL 10/07/2017 1:01 AM CDT [facility] MPV 10.8(H) 7.4 - 10.4 FL 10/07/2017 1:01 AM CDT [facility] SEG NEUTROPHILS 70.7 % 8 1:10 AM CDT [facility] LYMPHOCYTES 17.2 % 10/07/2017 1:10 AM CDT [facility] MONOCYTES 8.7 % 10/07/2017 1:10 AM CDT [facility] EOSINOPHILS 2.5 % 10/07/2017 1:10 AM CDT [facility] BASOPHILS 0.7 % 10/07/2017 1:10 AM CDT [facility] IMMATURE GRANS % 0.2 % 10/08/19 18 1:10 AM CDT [facility] NRBC 0.0 % 10/07/2017 1:10 AM CDT [facility] ABS. NEUTROPHILS 3.18 1.60 - 8.30 x10'3/uL 10/07/2017 1:10 AM CDT [facility] ABS. LYMPHOCYTES 0.77(L) 0.80 - 4.70 x10'3/uL 10/07/2017 1:10 AM CDT [facility] ABS. MONOCYTES 0.39 0.00 - 1.50 x10'3/uL 10/07/2017 1:10 AM CDT [facility] ABS. EOSINOPHILS 0.11 0.00 - 0.40 x10'3/uL 10/07/2017 1:10 AM CDT [facility] ABS. BASOPHILS 0.03 0.00 - 0.20 x10'3/uL 10/07/2017 1:10 AM CDT [facility] ABS. IMMATURE GRANULOCYTES 0.01 0.00 - 0.03 x10'3/uL 10/07/2017 1:10 AM CDT [facility] ABS. NUCLEATED RBC'S 0.00 0.00 x10'3/uL 10/07/2017 1:10 AM CDT [facility] PLT MORPH. DECREASED 10/07/2017 1:10 AM CDT [facility] RBC MORPHOLOGY NORMAL 10/07/2017 1:10 AM CDT [facility] OTHER (type in comments) 10/07/2017 12:53 AM CDT 10/07/2017 12:56 AM CDT Comment:WHOLE BLOOD SAMPLE us Generic Conversion Md RED LABORATORY Final R esult [facility] [address] [facility] [address], documented in this encounter Visit Diagnoses Diagnosis Abdominal pain Abdominal pain, unspecified site documented in this encounter
--- OUTSIDE RECORDS SUMMARY | 2024-05-08 05:46 | XMS_ITS | Clinical Summary ---
Author Organization [facility] Address [address] [place] [address]. [place] [address] [place] [address] Care Team Providers Care Grade School Teacher Name Role Phone Braydon Pavon Primary Care Provider [phone] Allergies Active Allergy Reactions Criticality Noted Date [...] (two) times daily. Active vitamin D2, ergocalciferol, 70398 UNITS capsule Take 50,000 Units by mouth every 30 (thirty) days. Active Insulin Pen Needle (PEN NEEDLES) 32G X 4 MM Misc Inject 3 times daily 0 Active ONE TOUCH ULTRA TEST STRIPS test stripIndications:Ty pe 2 diabetes mellitus with hyperglycemia, with long-term current use of insulin ([facility]) Test 4 times daily 200 [...] hyperglycemia, with long-term current use of insulin ([facility]) Inject 0.4 mLs (200 Units total) into the skin 3 (three) times daily before meals. 18 mL 11 4 Active Continuous Glucose Sensor (DEXCOM G7 SENSOR) MiscIndications:Typ e 2 diabetes mellitus with hyperglycemia, with long-term current use of insulin ([facility]) CHANGE SENSOR EVERY 10 DAYS 3 each 11 4 Active Active Problems Problem Noted Date Diagnosed Date Lumbar degenerative disc disease 05/23/2019 Essential hypertension 07/21/2018 Diabetes mellitus, type 2 ([facility]) 06/2017 Morbid obesity ([facility]) 12/09/2016 TRACY (obstructive sleep apnea) 09/14/2016 Thrombocytopenia 09/14/2016 Esophageal varices ([facility]) 09/09/2016 Hepatic encephalopathy ([facility]) 017 Type 2 diabetes mellitus wit h hyperglycemia, with long-term current use of insulin ([facility]) 09/09/2016 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 ([facility]) 08/28/2015 Overview (04/05/2019): Last Assessment & [...] Type Department Care Team Description 03/30/2024 Telephone [facility] End[facility] [address] [phone] Eva Power MD Reschedule 03/01/2024 Telephone [facility] [address] [phone] Eva Power MD Refill Request (NEEDS PA ON DEXCOM G7 SENSOR REFILL) 02/19/2024 Telephone [facility] [address] [phone] Eva Power MD Callback; Medication Problem 02/15/2024 2:00 PM CDT Office Visit [facility] [address] [phone] Eva Power MD Type 2 Diabetes; New Patient 02/15/2024 Scan [facility] SRVCS Scanned, Doc Med Group 02/15/2024 Travel from Last 3 Months Family History [...] st Contact Info) Description 05/10/2024 11:40 AM LITIGATION SECRETARY Office Visit [facility] Medical Group Diabetes and Endocrinology - [address] [phone] Eva Power MD [address] [place] [address] Health Maintenance Due Date Last Done Comments Colorectal Cancer Screening Colonoscopy (10 Years) 1970 Kidney Health Evaluation 1970 Lipid Panel 1970 Annual Physical 1973 Pneumococcal Vaccine: Pediatrics (0 to 5 Years) and At-Risk Patients (6 to 64 Years) (1 of 2 - PCV) 1976 Diabetes: Retinopathy Eye Exam 1988 DTaP, Tdap and Td Vaccines (1 - Tdap) 1989 Hepatitis B Vaccines (3 of 3 - 19+ 3-dose series) 03/12/2016 11/09/2015, 09/10/2015 Zoster Vaccines (1 of 2) 2020 COVID-19 Vaccine (3 - season) 2024 12/29/2020, 12/08/2020 Influenza Adult (#1) 2024 Hemoglobin A1C 02/23/2024 11/23/2023, 05/04, 02/10/2023, Additional history exists Hepatitis C Completed 12/29/2023, 12/29/2023 Meningococcal Vaccine Aged Out No marcia rusty eligible based on patient's age to complete this topic RSV Immunizations Under 20 Months Aged Out No longer eligible based on patient's age to complete this topic Medical Devices Implanted Type Area Meat Curer Device Identifier Shelf Expiration Date Model / Serial / Lot [employer]ar Stent-01/02/2021 Implanted: 021 (Quantity not on file) Stent Abdomen [employer] - [employer] C R BARD [id number] / / Description:Non-clinical silvia ting demonstrated that [...] of 720 Gauss/cm or less ?? Maximum ysjuy-ftcj-[id number] specific absorption rate (IVANA) of 2-W/kg for 15 minutes of scanning for patient landmarks above the umbilicus. ?? Maximum WB-IVANA of 1 W/kg for 15 min. of scanning for patient landmarks below the umbilicus. Procedures Procedure Name Priority Date/Time Associated Diagnosis Comments HEMOGLOBIN, GLYCOSYLATED Routine 04/05/2019 Type 2 diabetes mellitus with hyperglycemia, with long-term current use of insulin ([facility]) from Last 3 Months or Most Recently Relevant to Health Maintenance Results * HEMOGLOBIN, GLYCOSYLATED (04/05/2019) HGB A1C 10.[address] [facility] 04/05/2019 us Eva Power MD LABORATORY Final Result [address] [facility] [address] [employer] [place], [place] [address] [phone] from Last 3 Months or Most Recently Relevant to Health Maintenance Insurance T Care Teams Grade School Teacher Relationship Specialty Start Date End Date Braydon Pavon PA [address] [place] [address] PCP - General PHYSICIAN WEBSPHERE CONSULTANT 03/02/19
--- OUTSIDE RECORDS SUMMARY | 2024-05-08 05:46 | XMS_ITS | Encounter Summary ---
Author Organization [facility] Address [address] [place] [address]. [place], [place] [address] [place] [address] Care Team Providers Care Documentation Supervisor Name Role Phone None, Provider Primary Care Provider Unavaila ble Reason for Visit * Reason Comments Dental Problem Encounter Details Date Type Department Care Team (Late st Contact Info) Description 02/08/2019 8:30 PM CDT - 02/08/2019 10:06 PM CDT Emergency [facility] [address] [place] [address] [place] [address] Dental Problem Discharge Disposition: Left Against Medical [...] st Contact Info) Description 05/10/2024 11:40 AM RATE SETTER Office Visit [facility] Medical Group Diabetes and Endocrinology - [address] [phone] Eva Power MD [address] [place] [address] documented as of this encounter Visit Diagnoses Not on filedocumented in this encounter Care Teams Documentation Supervisor Relationship Specialty Start Date End Date None, Provider, PCP - General 02/08/19 03/01/19 documented as of this encounter
--- OUTSIDE RECORDS SUMMARY | 2024-05-08 05:46 | XMS_ITS | Encounter Summary ---
Author Organization [facility] Address [address] [place] [address]. [place] [address] [place] [address] Care Team Providers Care Financial Aid Administrator Name Role Phone Unavailable Primary Care Provider Unavailabl e Encounter Details Date Type Department Care Team (Latest Contact Info) Description 11/03/2016 Abstract [facility] Medical Group Social History [...] st Contact Info) Description 05/10/2024 11:40 AM FREEDOM OF INFORMATION OFFICER Office Visit [facility] Medical Group Diabetes and Endocrinology - [address] [phone] Eva Power MD [address] [place] [phone] documented as of this encounter Visit Diagnoses Not on filedocumented in this encounter
--- OUTSIDE RECORDS SUMMARY | 2024-05-08 05:46 | XMS_ITS | Encounter Summary ---
Author Organization [facility] Address [address] [place] [address]. [place] [address] [place] [address] Care Team Providers Care Dry Pan Charger Name Role Phone Braydon Pavon Primary Care Provider [phone] Encounter Details Date Type Department Care Team (Late Contact Info) Description 12/23/2019 Transcribe Orders [facility] Pre Access Team [address] [place] [address] Braydon Pavon PA [address] [place] [address] Social History Tobacco Use Types Packs/Day Years [...] (Late Contact Info) Description 05/10/2024 11:40 AM FORESTRY FIRE AIDE Office Visit [facility] Medical Group Diabetes and Endocrinology - [address] [address] Eva Power MD [address] [place] [address] documented as of this encounter Visit Diagnoses Diagnosis Obstructive sleep apnea (adult) (pediatric)- Primary documented in this encounter Care Teams Dry Pan Charger Relationship Specialty Start Date End Date Braydon Pavon PA [address] [place] [address] PCP - General PHYSICIAN MANAGEMENT REP 03/02/19 documented as of this encounter
--- OUTSIDE RECORDS SUMMARY | 2024-05-08 05:46 | XMS_ITS | Encounter Summary ---
Author Organization [facility] Address [address] [place] [address]. [place], [place] [address] [place] [address] Care Team Providers Care Residential Tech Name Role Phone Unavailable Primary Care Provider Unavailabl e Reason for Visit * Reason Comments Abdominal Pain Weakness Encounter Details Date Type Department Care Team (Late st Contact Info) Description 10/25/2018 4:34 PM CDT - 10/25/2018 6:59 PM CDT Emergency [facility] Emergency [address] [place] [address] Abdominal Pain; Weakness Discharge Disposition: Left Against [...] st Contact Info) Description 05/10/2024 11:40 AM IMPREGNATOR ELECTROLYTIC CAPACITORS Office Visit [facility] Medical Group Diabetes and Endocrinology - [address] [address] Eva Power MD [address] [place] [address] documented as of this encounter Procedures [...] 70 - 109 10/25/2018 5:06 PM CDT [facility] LAB ORDERS INTERFACE 10/25/2018 5:03 PM CDT us Attending Physician Emergency MD POCT ORDERABLES - DEVICE Final Result [facility] LAB ORDERS INTERFACE US documented in this encounter Visit Diagnoses Not on filedocumented in this encounter
--- OUTSIDE RECORDS SUMMARY | 2024-05-08 05:46 | XMS_ITS | Encounter Summary ---
Author Organization [facility] Address [address] [place] [address]. [place] [address] [place] [address] Care Team Providers Care Passenger Car Inspector Name Role Phone Braydon Pavon Primary Care Provider [phone] Encounter Details Date Type Department Care Team [...] st Contact Info) Description 05/10/2024 11:40 AM ICE GUARD SKATING RINK Office Visit [facility] Medical Group Diabetes and Endocrinology - [id number] [place] [address] Eva Power MD [address] [place] [address] documented as of this encounter Visit Diagnoses Not on filedocumented in this encounter Care Teams Passenger Car Inspector Relationship Specialty Start Date End Date Braydon Pavon PA [address] [place] [address] PCP - General PHYSICIAN NEONATAL CRITICAL CARE NURSE 03/02/19 documented as of this encounter
--- OUTSIDE RECORDS SUMMARY | 2024-05-08 05:46 | XMS_ITS | Encounter Summary ---
Author Organization [facility] Address [address] [place] [address]. [place] [address] [place] [address] Care Team Providers Care Plastic Panel Installer Name Role Phone Braydon Pavon Primary Care Provider [phone] Encounter Details Date Type Department Care Team [...] st Contact Info) Description 05/10/2024 11:40 AM LICENSED PHYSICAL THERAPIST Office Visit [facility] Medical Group Diabetes and Endocrinology - [address] [address] Eva Power MD [address] [place] [address] documented as of this encounter Visit Diagnoses Not on filedocumented in this encounter Care Teams Plastic Panel Installer Relationship Specialty Start Date End Date Braydon Pavon PA [address] [place] [address] PCP - General PHYSICIAN LUMBER TAILER 03/02/19 documented as of this encounter
--- OUTSIDE RECORDS SUMMARY | 2024-05-08 05:46 | XMS_ITS | Encounter Summary ---
Author Organization [facility] Address [address] [place] [address]. [place] [address] [place] [address] Care Team Providers Care Program Development Manager Name Role Phone Unavailable Primary Care Provider Unavailabl e Encounter Details Date Type Department Care Team (Latest Contact Info) Description 11/13/2016 Abstract [facility] Eva Power MD [address] [place] [address] Social History Tobacco Use Types [...] by:Eva Power M.D. Dec 09 2016 10:11PM LENS INSERTER Author documented in this encounter Plan of Treatment Upcoming Encounters Date Type Department Care Team (Late st Contact Info) Description 05/10/2024 11:40 AM LENS INSERTER Office Visit [facility] Medical Group Diabetes and Endocrinology - [address] [address] Eva Power MD [address] [place], [place] [phone] documented as of this encounter Visit Diagnoses Not on filedocumented in this encounter
--- OUTSIDE RECORDS SUMMARY | 2024-05-08 05:46 | XMS_ITS | Encounter Summary ---
Author Organization [facility] Address [address] [place] [address]. [place], [place] [address] [place] [address] Care Team Providers Care Health Manager Name Role Phone Unavailable Primary Care Provider Unavailabl e Encounter Details Date Type Department Care Team (Latest Contact Info) Description 12/04/2017 Abstract [facility] Medical [facility] Social [...] Spouse; Other; Please call Mayra Power's Nurse [phone] Phone Thank You. Alyse Cote - 04 Dec 2017 1:55 PM TASK EDITED I spoke with Mayra, spouse of patient, and informed her patient has [employer] insurance and we are not in network. I advised Mayra if patient was not able to change insurance to [place], [place], or [place] under Managed Medicaid, patient would [...] st Contact Info) Description 05/10/2024 11:[address] SIGN INSTALLER Office Visit [facility] Medical Group Diabetes and Endocrinology - [address] [address] Eva Power MD [address] [place] [phone] documented as of this encounter Visit Diagnoses Not on filedocumented in this encounter
--- OUTSIDE RECORDS SUMMARY | 2024-05-08 05:46 | XMS_ITS | Encounter Summary ---
Author Organization [facility] Address [address] [place] [address]. [place] [address] [place] [address] Care Team Providers Care Dining Room Host/Hostess Name Role Phone Braydon Pavon Primary Care Provider [phone] Reason for Visit * Reason Comments Type 2 Diabetes * Consultation/Treatment (Routine) - Closed Specialty Diagnoses / Procedures Referred By Jordan casillas Referred To Contact ENDOCRINOLOGY Diagnoses Follow Up Procedures FOLLOW UP Paul Chanel MD [facility] [place] [place] [address] Phone: tel: fax: Paul Chanel MD [facility] [place] [address] [place] [address] Phone: tel: fax: Referral ID Status Reason Start Date Expiration Date Visits Re quested Visits Authorized [id number] Closed 04/05/2019 04/05/2020 15 15 Encounter Details Date Type Department Care Team (Late st Contact Info) Description 04/05/2019 11:40 AM HUMAN INSIGHTS LEAD ADS MARKETING Office Visit [facility] Medical Group Diabetes and Endocrinology - [place] [address] [place] [phone] Paul Chanel MD [facility] [place] [place] [address] Type 2 Diabetes Social History [...] Comments Blood Pressure 132/72 04/05/2019 11:41 AM HUMAN INSIGHTS LEAD ADS MARKETING Pulse 102 04/05/2019 11:41 AM HUMAN INSIGHTS LEAD ADS MARKETING Temperature - - Respiratory Rate - - Oxygen Saturation - - Inhaled Oxygen Concentration - - Weight 122.5 kg (270 lb) 04/05/2019 11:41 AM HUMAN INSIGHTS LEAD ADS MARKETING Height 172.7 cm (5' 8 ) 04/05/2019 11:41 AM HUMAN INSIGHTS LEAD ADS MARKETING Body Mass Index 41.05 04/05/2019 11:41 AM HUMAN INSIGHTS LEAD ADS MARKETING documented in this encounter Patient Instructions * Patient Instructions* Paul Chanel MD - 04/05/2019 11:40 AM HUMAN INSIGHTS LEAD ADS MARKETING U-500 R 200 units each meal 3 times a day Start check BG 2/day in am, and before supper You saw Dr. Paul Chanel today in [facility]. It was pleasure to see you today. Please do not hesitate to contact us with additional questions or concerns, you can reach us at [phone] during business hours, or [phone] after hours or weekends. N INSIGHTS LEAD ADS MARKETING N INSIGHTS LEAD ADS MARKETING N INSIGHTS LEAD ADS MARKETING documented in this encounter Progress Notes * [...] room several times and also hospitalized in [facility] in October 2017 and February 2018 for [...] GI in [place] - [facility]. Bev Ellis ([facility]). A1c 7.7 (September 2016); 8.4 (Feb 2018) [...] Base) MCG/ACT inhaler ??? vitamin D2, ergocalciferol, 56942 UNITS capsule Take 50,000 Units by mouth [...] ??? TRACY (obstructive sleep apnea) ??? Thrombocytopenia ([facility]) ??? Type 2 diabetes mellitus with hyperglycemia, with long-term current use of insulin ([facility]) Problem List Items Addressed This Visit Type 2 diabetes mellitus with hyperglycemia, with long-term current use of insulin ([facility]) - Primary Relevant Medications TRUE METRIX BLOOD [...] and given to the patient. PAUL CHANEL N INSIGHTS LEAD ADS MARKETING documented in this encounter Plan of Treatment Upcoming Encounters Date Type Department Care Team (Late st Contact Info) Description 05/10/2024 11:40 AM HUMAN INSIGHTS LEAD ADS MARKETING Office Visit [facility] Medical Group Diabetes and Endocrinology - [address] [address] Paul Chanel MD [address] [place] [address] documented as of this encounter Procedures Procedure Name Priority Date/Time Associated Diagnosis Comments HEMOGLOBIN, GLYCOSYLATED Routine 04/05/2019 Type 2 diabetes mellitus with hyperglycemia, with long-term current use of insulin ([facility]) GLUCOSE BLOOD, MONITOR DEVICE Routine 04/05/2019 Type 2 diabetes mellitus with hyperglycemia, with long-term current use of insulin ([facility]) documented in this encounter Results * HEMOGLOBIN, GLYCOSYLATED (04/05/2019) HGB A1C 10.[address] 04/05/2019 us Paul Chanel MD LABORATORY Final Result Performing Organization Address [facility] Co de Phone Number [address], [place] [phone], * (ABNORMAL) GLUCOSE BLOOD, MONITOR DEVICE (04/05/2019) GLUCOSE WHOLE BLOOD 260(A) 70 - 100 mg/dL [address] 04/05/2019 Paul Chanel MD LABORATORY Final Result Performing Organization Address [facility] de Phone Number [address], [address] [address], [place] [phone] documented in this encounter Visit Diagnoses Diagnosis Type 2 diabetes mellitus with hyperglycemia, with long-term current use of insulin ([facility])- Primary documented in this encounter Care Teams Dining Room Host/Hostess Relationship Specialty Start Date End Date Braydon Pavon PA [address] [place] [address] PCP - General PHYSICIAN MANAGER NURSING HOME 03/02/19 documented as of this encounter
--- OUTSIDE RECORDS SUMMARY | 2024-05-08 05:46 | XMS_ITS | Encounter Summary ---
Author Organization [facility] Address [address] [place] [address]. [place] [address] [place] [address] Care Team Providers Care Sweatband Decorating Machine Operator Name Role Phone Unavailable Primary Care Provider Unavailabl e Encounter Details Date Type Department Care Team (Late Contact Info) Description 02/04/2018 [facility] Emergency Room [address] [place] [address] [place] [address] Faith Choe MD [address] [place] [address] Social History Tobacco Use Types Packs/Day [...] (Late Contact Info) Description 05/10/2024 11:40 AM INTERVENTIONAL PHYSIATRIST Office Visit [facility] Medical Group Diabetes and Endocrinology - [address] [address] Eva Power MD [address] [place] [address] documented as of this encounter Procedures [...] GLUCOSE BLOOD, QNT (02/04/2018 7:52 PM CDT) [facility] Signature GLUCOSE POC 201(H) 70 - 140 MG/DL 02/04/2018 7:55 PM CDT [facility] LAB ORDERS INTERFACE 02/04/2018 7:52 PM CDT 02/04/2018 7:55 PM CDT us Generic Conversion Md RED LABORATORY Final R esult [facility] LAB ORDERS INTERFACE US * (ABNORMAL) Blood gas, venous (02/04/2018 6:15 PM CDT) O2 SAT VENOUS 98(H) 40 - 70 % 02/04/2018 6:30 PM CDT [facility] PH VENOUS 7.42 7.35 - 7.45 02/04/2018 6:30 PM CDT [facility] PCO2 38.2(L) 41.0 - 51.0 MMHG 02/04/2018 6:30 PM CDT [facility] PO2 VENOUS 95.0(H) 20.0 - 40.0 MM HG 02/04/2018 6:30 PM CDT [facility] VENOUS BASE EXCESS 0.7 MMOL/L 02/04/2018 6:30 PM CDT [facility] BICARB VENOUS 24.5 22.0 - 29.0 MMOL/L 02/04/2018 6:30 PM CDT [facility] TCO2 25.6 25.0 - 29.0 MMOL/L 02/04/2018 6:30 PM CDT [facility] LITER FLOW ROOM AIR 02/04/2018 6:25 PM CDT [facility] 02/04/2018 6:15 PM CDT 02/04/2018 6:24 PM CDT us Generic Conversion Md RED LABORATORY Final R esult [facility] [address] [place] [address], * (ABNORMAL) COMPREHENSIVE METABOLIC PANEL (02/04/2018 6:15 PM CDT) SODIUM S/P/B 139 136 - 145 MMOL/L 02/04/2018 6:44 PM CDT [facility] POTASSIUM S/P/B 3.9 3.5 - 5.1 MMOL/L 02/04/2018 6:44 PM CDT [facility] CHLORIDE S/P/B 103 98 - 107 MMOL/L 02/04/2018 6:44 PM CDT [facility] CO2 26.4 21.0 - 32.0 MMOL/L 02/04/2018 6:44 PM CDT [facility] GLUCOSE 312(H) 70 - 140 MG/DL 02/04/2018 6:44 PM CDT [facility] BUN 7 6 - 24 MG/DL 02/04/2018 6:44 PM CDT [facility] CREATININE S/P/B 0.87 0.70 - 1.30 MG/DL 02/04/2018 6:44 PM CDT [facility] CALCIUM S/P/B 9.1 8.4 - 10.5 MG/DL 02/04/2018 6:44 PM CDT [facility] BILIRUBIN TOTAL S/P/B 1.0 0.2 - 1.0 MG/DL 02/04/2018 6:44 PM [facility] ALKALINE PHOSPHATASE S/P/B 93 45 - 115 U/L 02/04/2018 6:44 PM [facility] AST 108(H) 15 - 37 U/L 02/04/2018 6:44 PM [facility] ALT 118(H) 16 - 63 U/L 02/04/2018 6:44 PM [facility] TOTAL PROTEIN S/P/B 6.8 6.4 - 8.2 G/DL 02/04/2018 6:44 PM [facility] ALBUMIN S/P/B 3.3(L) 3.4 - 5.0 G/DL 02/04/2018 6:44 PM [facility] ANION GAP 9.6 MMOL/L 02/04/2018 6:44 PM [facility] Comment:REFERENCE RANGE NOT ESTABLISHED OSMOLALITY (CALC) 298 MOSM/KG 02/04/2018 6:44 PM [facility] Comment:REFERENCE RANGE NOT ESTABLISHED EGFR NON-AFR. AMER. >90 >89 ML/MIN/1 .73 M2 02/04/2018 6:44 PM [facility] EGFR AFR. AMER. >90 >89 ML/MIN/1 .73 M2 02/04/2018 6:44 PM [facility] GFR NOTES THE ESTIMATED GFR IS CALCULATED USING THE 2009 CKD-EPI EQUATION. THE FOLLOWING CATEGORIES FOR GRADING RENAL FUNCTION ARE RECOMMENDED BY THE INTERNATIONAL SOCIETY OF NEPHROLOGY (KDIGO 2012 CLINICAL PRACTICE GUIDELINE). 02/04/2018 6:44 PM [facility] Comment: G1,NORMAL OR HIGH: >89 ml/min/1.73 m2G2,MILDLY DECREASED: 60-89 ml/min/1.73 m2G3A,MILDLY TO MODERATELY DECREASED: 45-59 ml/min/1.73 m2G3B,MODERATELY TO SEVERELY DECREASED: 30-44 ml/min/1.73 m2G4,SEVERELY DECREASED: 15-29 ml/min/1.73 m2G5,KIDNEY FAILURE: <15 ml/min/1.73 m2 PLASMA SPECIMEN / Unknown 02/04/2018 6:15 PM CDT 02/04/2018 6:24 PM CDT us Generic Conversion Md RED LABORATORY Final R esult [facility] [address] [place] [address], * (ABNORMAL) CBC W/DIFF AUTOMATED (02/04/2018 6:15 PM CDT) WBC 4.6 4.5 - 10.8 x10'3/uL 02/04/2018 6:34 PM CDT [facility] RBC 4.49(L) 4.50 - 6.10 x10'6/uL 02/04/2018 6:34 PM CDT [facility] HGB 12.4(L) 13.0 - 18.0 G/DL 02/04/2018 6:34 PM CDT [facility] HCT 36.9(L) 37.0 - 52.0 % 02/04/2018 6:34 PM CDT [facility] MCV 82.2 78.0 - 100.0 FL 02/04/2018 6:34 PM CDT [facility] MCH 27.6 27.0 - 31.0 PG 02/04/2018 6:34 PM CDT [facility] MCHC 33.6 33.0 - 36.0 G/DL 02/04/2018 6:34 PM CDT [facility] RDW 15.1(H) 11.5 - 14.5 % 02/04/2018 6:34 PM CDT [facility] PLT 88(L) 150 - 350 x10'3/uL 02/04/2018 6:34 PM CDT [facility] MPV 10.8(H) 7.4 - 10.4 FL 02/04/2018 6:34 PM CDT [facility] SEG NEUTROPHILS 75.9 % 8 6:57 PM CDT [facility] LYMPHOCYTES 12.5 % 02/04/2018 6:57 PM CDT [facility] MONOCYTES 8.8 % 02/04/2018 6:57 PM CDT [facility] EOSINOPHILS 2.2 % 02/04/2018 6:57 PM CDT [facility] BASOPHILS 0.4 % 02/04/2018 6:57 PM CDT [facility] IMMATURE GRANS % 0.2 % 02/05/20 18 6:57 PM CDT [facility] NRBC 0.0 % 02/04/2018 6:57 PM CDT [facility] ABS. NEUTROPHILS 3.49 1.60 - 8.30 x10'3/uL 02/04/2018 6:57 PM CDT [facility] ABS. LYMPHOCYTES 0.58(L) 0.80 - 4.70 x10'3/uL 02/04/2018 6:57 PM CDT [facility] ABS. MONOCYTES 0.40 0.00 - 1.50 x10'3/uL 02/04/2018 6:57 PM CDT [facility] ABS. EOSINOPHILS 0.10 0.00 - 0.40 x10'3/uL 02/04/2018 6:57 PM CDT [facility] ABS. BASOPHILS 0.02 0.00 - 0.20 x10'3/uL 02/04/2018 6:57 PM CDT [facility] ABS. IMMATURE GRANULOCYTES 0.01 0.00 - 0.03 x10'3/uL 02/04/2018 6:57 PM CDT [facility] ABS. NUCLEATED RBC'S 0.00 0.00 x10'3/uL 02/04/2018 6:57 PM CDT [facility] PLT MORPH. DECREASED 02/04/2018 6:57 PM CDT [facility] RBC MORPHOLOGY NORMAL 02/04/2018 6:57 PM CDT [facility] OTHER (type in comments) 02/04/2018 6:15 PM CDT 02/04/2018 6:24 PM CDT Comment:WHOLE BLOOD SAMPLE us Generic Conversion Md RED LABORATORY Final R esult [facility] [address] [place] [address], [place] [phone] * BETA-HYDROXYBUTYRATE (02/04/2018 6:15 PM CDT) BETA-HYDROXYBUT YRATE 0.0 0.0 - 0.3 MMOL/L 02/04/2018 6:30 PM CDT [facility] SERUM OR PLASMA SPECIMEN / Unknown 02/04/2018 6:15 PM CDT 02/04/2018 6:24 PM CDT us Generic Conversion Md RED LABORATORY Final R replaced by [facility] Performing Organization Address City/[facility]/ZIP Co de Phone Number [facility] [address] [place] [address], [place] [phone] * (ABNORMAL) AMMONIA (02/04/2018 6:15 PM CDT) AMMONIA 67(H) 11 - 32 UMOL/L 02/04/2018 6:40 PM CDT [facility] Comment:MILD HEMOLYSIS, RESU LT MAY BE AFFECTED. PLASMA SPECIMEN / Unknown 02/04/2018 6:15 PM CDT 02/04/2018 6:24 PM CDT us Generic Conversion Md RED LABORATORY Final R esult [facility] [place] [address], [place] [phone] * (ABNORMAL) URINALYSIS WI REFLEX TO CULTURE (02/04/2018 6:01 PM CDT) COLOR (U) YELLOW 02/04/2018 6:15 PM CDT [facility] TRANSPARENCY CLEAR 02/04/2018 6:15 PM CDT [facility] SPECIFIC GRAVITY (U) 1.010 1.000 - 1.025 02/04/2018 6:15 PM CDT [facility] U PH 6.0 5.0 - 8.0 02/04/2018 6:15 PM CDT [facility] LEUKOCYTES (U) NEGATIVE NEGATIVE 02/04/2018 6:15 PM CDT [facility] NITRITES NEGATIVE NEGATIVE 02/04/2018 6:15 PM CDT [facility] PROTEIN (U) NEGATIVE NEGATIVE 02/04/2018 6:15 PM CDT [facility] URINE GLUCOSE 3+(A) NEGATIVE 02/04/2018 6:15 PM CDT [facility] KETONES MG/DL (U) NEGATIVE NEGATIVE 02/04/2018 6:15 PM CDT [facility] UROBILINOGEN 2.0(H) <1.0 EU/DL 02/04/2018 6:15 PM CDT [facility] BILIRUBIN (U) NEGATIVE NEGATIVE 02/04/2018 6:15 PM CDT [facility] BLOOD (U) NEGATIVE NEGATIVE 02/04/2018 6:15 PM CDT [facility] WBC/HPF 0-5 0 - 5 /HPF 02/04/2018 6:15 PM CDT [facility] EPI/HPF RARE /LPF 02/04/2018 6:15 PM CDT [facility] CULTURE & SENSITIVITY INDICATED? NOT INDICATED 02/04/2018 6:15 PM CDT [facility] OTHER (type in comments) 02/04/2018 6:01 PM CDT 02/04/2018 6:08 PM CDT Comment:URINE SPECIMEN~URINE SPECIMEN us Generic Conversion Md RED URINE ORDERABLES Final Result [facility] [address] [place] [address], documented in this encounter Visit Diagnoses Diagnosis Type 2 diabetes mellitus with hyperglycemia (CMS/HCC HHS/HCC) Type II or unspecified type diabetes mellitus without mention of complication, not stated as uncontrolled documented in this encounter
--- OUTSIDE RECORDS SUMMARY | 2024-05-08 05:46 | XMS_ITS | Encounter Summary ---
Author Organization [facility] Address [address] [place] [address]. [place] [address] [place] [address] Care Team Providers Care Plaster Form Maker Name Role Phone Braydon Pavon Primary Care Provider [phone] Encounter Details Date Type Department Care Team [...] st Contact Info) Description 05/10/2024 11:40 AM CROP NUTRITION SCIENTIST Office Visit [facility] Diabetes and Endocrinology - [place] [address] [place] [address] Eva Power MD [address] [place] [address] documented as of this encounter Visit Diagnoses Not on filedocumented in this encounter Care Teams Plaster Form Maker Relationship Specialty Start Date End Date Braydon Pavon PA [address] [place] [address] PCP - General PHYSICIAN AUTO CLUB TRAVEL COUNSELOR 03/02/19 documented as of this encounter
--- OUTSIDE RECORDS SUMMARY | 2024-05-08 05:46 | XMS_ITS | Encounter Summary ---
Author Organization [facility] [place] Address [address] [place] [address]. [place] [address] [place] [address] Care Team Providers Care Manager Express Name Role Phone Braydon Pavon Primary Care Provider [phone] Reason for Referral * (Routine) - New Request Specialty Diagnoses / Procedures Referred By Contac t Referred To Contact Diagnoses Type 2 diabetes mellitus with hyperglycemia, with long-term current use of insulin ([facility]) Procedures CONT GLUC MNTR ANALYSIS I&R Paul Chanel MD [address] [place] [address] Phone: tel: fax: Referral ID Status Reason Start Date Expiration Date V isits Requested Visits Authorized [id number] New Request 02/15/2024 02/14/2025 1 1 Reason for Visit * Reason Comments Type 2 Diabetes New Patient * Consultation (Routine) - New Request Specialty Diagnoses / Procedures Referred By Contac t Referred To Contact ENDOCRINOLOGY Diagnoses Type 2 diabetes mellitus ([facility]) Procedures OFFICE/OUTPT VISIT,JILLIAN ZAMORA IV, [place], PA [address] [place] [address] Phone: tel: fax: Paul Chanel MD [address] [place] [address] Phone: tel:[phone] fax: Referral ID Status Reason Start Date Expiration Date Visits Requested Visits Authorized [id number] New Request Consultatio n 01/26/2024 01/25/2025 1 1 Encounter Details Date Type Department Care Team (Latest Contact Info) Description 02/15/2024 2:00 PM CDT Office Visit [facility] Diabetes and Endocrinology - [address] [address] Paul Chanel MD [facility] [place] [address] Type 2 Diabetes; New Patient Social History [...] 1000 mg in the evening (Dr. Edmond Choi,[facility]) Apr 2019 he was on U-500 R insulin 200 units TID with meals., stopped metformin due to stomach upset ([place]) Oct 2020 - on U-500 200 units TID, (Dr. Nacho Lindo [facility]) A1c 9.8%. Started Ozempic - did not tolerate? May 2021 - A1c 9.8% May 2023 - saw a new endo Dr. Vikram Mora in [place], [place]. A1c 11.6%. Reported to be on Lantus 50 in themorning and 30 5 in the evening, Humalog 45 units before each meal, noncompliant with that regimen.Changed to Lantus 40 units at bedtime, Humalog 14 units before each meal. Current diabetes regimen: Take Humalog 32 units - first 8 am, eat 1st meal at noon and 8 pm, Qivdfl02 units at 8 am and 35 units [...] 250. The only time glucose ever lower [id number] 9 am- noon for a brief 2-3 [...] GI in [place] - Dr. Bev Ellis ([facility]). A1c 7.7 (September 2016); 8.4 (Feb 2018), [...] taking: Reported on 02/15/2024) vitamin D2, ergocalciferol, 81558 UNITS capsule Take 50,000 Units by mouth every 30 (thirty) days. (Patient not taking: Reported on 02/15/2024) No current facility-administered medications on file prior to visit. 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 Diabetes and Endocrinology - [address] [address] Paul Chanel MD [address] [place] [address] [phone] Scheduled Orders Name Type Priority Associated Diagnoses Orde r Schedule CONT GLUC MNTR ANALYSIS I&R Procedures Routine Type 2 diabetes mellitus with hyperglycemia, with long-term current use of insulin ([facility]) Ordered: 02/15/2024 documented as of this encounter Visit Diagnoses Diagnosis Type 2 diabetes mellitus with hyperglycemia, with long-term current use of insulin ([facility])- Primary documented in this encounter Care Teams Manager Express Relationship Specialty Start Date End Date Braydon Pavon PA [address] [place] [address] PCP - General PHYSICIAN CAREER DEVELOPMENT MANAGER 03/02/19 documented as of this encounter
--- OUTSIDE RECORDS SUMMARY | 2024-05-08 05:46 | XMS_ITS | Encounter Summary ---
Author Organization [facility] Address [address] [place] [address]. [place], [place] [address] [place] [address] Care Team Providers Care Cook Frozen Dessert Name Role Phone Unavailable Primary Care Provider Unavailabl e Encounter Details Date Type Department Care Team (Latest Contact Info) Description 10/17/2016 Abstract [facility] Social History Tobacco Use Types [...] Espinoza Task Name: Call Back Assigned To: [facility] Nurse Team Regarding Patient: Camilo Curry, [...] Chantelle Espinoza, ; Oct 30 2016 4:32PM LOAD OUT WORKER (Author) documented in this encounter Plan of Treatment Upcoming Encounters Date Type Department Care Team (Late st Contact Info) Description 05/10/2024 11:40 AM LOAD OUT WORKER Office Visit [facility] Diabetes and Endocrinology - [address] [phone] Eva Power MD [address] [place] [phone] documented as of this encounter Visit Diagnoses Not on filedocumented in this encounter
--- OUTSIDE RECORDS SUMMARY | 2024-05-08 05:46 | XMS_ITS | Encounter Summary ---
Author Organization [facility] Address [address] [place] [address]. [place] [address] [place] [address] Care Team Providers Care Wreath Inspector Name Role Phone Braydon Pavon Primary Care Provider [phone] Reason for Visit * Reason Onset Date Comments Refill Request 03/01/2024 NEEDS PA ON DEXC OM G7 SENSOR REFILL Encounter Details Date Type Department Care Team (Late st Contact Info) Description 03/01/2024 Telephone [facility] Diabetes and Endocrinology - [place] [address] [place] [address] vEa Power MD [address] [place] [address] Refill Request (NEEDS PA ON [...] name: Camilo Curry Mane Call back/ext. #: [phone] MyChart: No- caller prefers to be called via telephone Call details: NEEDS A PA ON MEDICATION Medication name: Continuous Glucose Sensor (DEXCOM G7 SENSOR) [facility]: [facility] - [place], [place] - [address], [facility] [address] documented in this encounter Plan of Treatment Upcoming Encounters Date Type Department Care Team (Late st Contact Info) Description 05/10/2024 11:40 AM CREDIT RISK SPECIALIST Office Visit [facility] Diabetes and Endocrinology - [address] [phone] Eva Power MD [address] [place] [address] [phone] documented as of this encounter Visit Diagnoses Not on filedocumented in this encounter Care Teams Wreath Inspector Relationship Specialty Start Date End Date Braydon Pavon PA [address] [place] [address] PCP - General PHYSICIAN GEOTHERMAL TECHNICIAN 03/02/19 documented as of this encounter
--- OUTSIDE RECORDS SUMMARY | 2024-05-08 05:46 | XMS_ITS | Encounter Summary ---
Author Organization [facility] Address [facility] [place] [address] Care Team Providers Care Stone Unloader Name Role Phone Braydon Pavon Primary Care Provider [phone] Reason for Visit * Reason Comments Cirrhosis * Evaluate & Treat (Routine) - Closed Specialty Diagnoses / Procedures Referred By Jordan casillas Referred To Contact Gastroenterology Diagnoses End stage liver disease (HCC) end stage liver disease Procedures ME OFFICE/OUTPT VISIT,JILLIAN ZAMORA IV, [place], PA [address] [place] [address] Aleksandr Fink MD [address] [place] [address] Referral ID Status Reason Start Date Expiration Date Visits Re quested Visits Authorized [id number] Closed 05/19/2018 11/15/2018 1 1 Encounter Details Date Type Department Care Team (Late st Contact Info) Description 06/02/2018 11:00 AM RATE REVIEWER Office Visit [facility] - [address] [place] [phone] Aleksandr Fink MD [facility] [place] [address] 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 [...] Comments Blood Pressure 146/78 06/02/2018 11:01 AM RATE REVIEWER Pulse 100 06/02/2018 11:01 AM RATE REVIEWER Temperature 36.7 ??C (98 ??F) 06/02/2018 11:01 AM RATE REVIEWER Respiratory Rate - - Oxygen Saturation 98% 06/02/2018 11:01 AM RATE REVIEWER Inhaled Oxygen Concentration - - Weight 124.3 kg (274 lb) 06/02/2018 11:01 AM RATE REVIEWER Height 172.7 cm (5' 8 ) 06/02/2018 11:01 AM RATE REVIEWER Body Mass Index 41.66 06/02/2018 11:01 AM RATE REVIEWER documented in this encounter Patient Instructions * Patient Instructions* Olivia Fink MD - 06/02/2018 11:56 AM RATE REVIEWER You should talk to PCP about pneumonia vaccine You are scheduled for a(n) U/S at Outpatient Services on 06-10-2018, at 08:00 A.M. Please arrive at07:30 A.M. Do not eat or drink 6 HOURS before your procedure. Outpatient Services at [facility] is an outpatient diagnostic and treatment center dedicated to one simple goal: superior customer service. Our latest innovation in same-day healthcare services extends beyond sophisticated and advanced equipment. Address to Outpatient Servics: [address] [place] [address] Park in Outpatient Service Parking Lot and enter side of building. Please remember to bring you insurance card(s) and a form of photo identification such as a residential driver's license. *If you have any questions, concerns or need to cancel and reschedule please call the scheduling department at [phone]. REVIEWER documented in this encounter Progress Notes * Olivia Fink MD - 06/02/2018 11:35 AM CST Images from the original note were not included. Hepatology clinic new patient visit: Subjective: 47 y.o. yo pt with Cirrhosis. Referring physician: Dr. Braydon Pavon PA Chief Complaint Patient presents with ??? Cirrhosis Pt was following with [facility], he cant follow up with them [...] TBILI, DBILI, TPROT, EGFR in the last 25237 hours. No results for input(s): WBC, HGB, HCT, PLTCOUNT in the last 62095 hours. No results for input(s): INR in the last 75639 hours. No results for input(s): AFP in the last 38665 hours. Invalid input(s): ALPHA-FETOPROTEIN INR: 1.2 Hepatitis [...] physician Division of Hepatology June 02, 2018 REVIEWER documented in this encounter Plan of Treatment Upcoming Encounters Date Type Department Care Team (Late st Contact Info) Description 02/17/2024 11:59 PM CDT Anesthesia Event [facility] [address] [place] [phone] Pushpa Frey [facility] [address] [facility] [address] [phone] 05/20/2024 12:30 PM RATE REVIEWER Appointment [facility] [address] [place] [phone] Steve Bedolla MD [address] [place] [phone] Scheduled Orders Name Type Priority Associated Diagnoses [...] (HCC) documented in this encounter Care Teams Stone Unloader Relationship Specialty Start Date End Date Braydon Pavon PA [address] [place] [address] PCP - General Physician Slack Line Yarder 05/19/18 10/03/18 documented as of this encounter
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
--- OUTSIDE RECORDS SUMMARY | 2024-05-08 05:46 | XMS_ITS | Encounter Summary ---
Author Organization [facility] Address [address] [place] [address] Care Team Providers Care Neurology Professor Name Role Phone Braydon Pavon Primary Care Provider [phone] Encounter Details Date Type Department Care Team (Late Contact Info) Description 05/24/2018 Orders Only [facility] [address] [facility] [place] [address] Edmond Choi MD [address] [facility] 2L [place] [address] Type 2 diabetes mellitus with complication, with [...] [facility] MRI [address] [place] [id number] Pushpa Frey DO [address] [facility] [address] [id number] 05/20/2024 12:30 PM FIXER BOARDING ROOM Appointment [facility] [address] [facility] [place] [address] Steve Bedolla MD [address] [place] [address] documented as of this encounter Visit Diagnoses Diagnosis Type 2 diabetes mellitus with complication, with long-term current use of insulin (HCC) documented in this encounter Care Teams Neurology Professor Relationship Specialty Start Date End Date Braydon Pavon PA [address] [place] [address] PCP - General Physician Ranch Cook 05/19/18 10/03/18 documented as of this encounter
--- OUTSIDE RECORDS SUMMARY | 2024-05-08 05:46 | XMS_ITS | Encounter Summary ---
Author Organization [facility] Address [address] [place] [address]. [place] [address] [place] [address] Care Team Providers Care Case Picker Name Role Phone Unavailable Primary Care Provider Unavailabl e Encounter Details Date Type Department Care Team (Latest Contact Info) Description 03/09/2018 Scan [facility] Sarina Gamez MD Social [...] st Contact Info) Description 05/10/2024 11:40 AM TERRAZZO TILE MAKER Office Visit [facility] Diabetes and Endocrinology - [address] [address] Eva Power MD [address] [place] [phone] documented as of this encounter Visit Diagnoses Not on filedocumented in this encounter
--- OUTSIDE RECORDS SUMMARY | 2024-05-08 05:46 | XMS_ITS | Encounter Summary ---
Author Organization [facility] Address [address] [place] [address]. [place] [address] [place] [address] Care Team Providers Care Director Targeted Marketing Name Role Phone Unavailable Primary Care Provider Unavailabl e Encounter Details Date Type Department Care Team (Late Contact Info) Description 07/01/2017 [facility] [address] [place] [address] [place] [address] Lukas Corea MD [address] [place] [address] Social History Tobacco Use Types Packs/Day Years [...] (Late Contact Info) Description 05/10/2024 11:40 AM INSPECTOR PROCESS Office Visit [facility] Diabetes and Endocrinology - [address] [address] Eva Power MD [address] [place] [address] [place] [address] documented as of this encounter Procedures Procedure Name Priority Date/Time Associated Diagnosis Comments URINALYSIS STAT 07/01/2017 8:00 PM INSPECTOR PROCESS COMPREHENSIVE METABOLIC PANEL STAT 07/01/2017 7:28 PM INSPECTOR PROCESS CBC W/DIFF AUTOMATED STAT 07/01/2017 7:28 PM INSPECTOR PROCESS AMMONIA STAT 07/01/2017 7:28 PM INSPECTOR PROCESS documented in this encounter Results * (ABNORMAL) URINALYSIS (07/01/2017 8:00 PM INSPECTOR PROCESS) COLOR (U) YELLOW 07/01/2017 8:21 PM INSPECTOR PROCESS [facility] TRANSPARENCY CLEAR 07/01/2017 8:21 PM [facility] [...] PM [facility] 07/01/2017 8:00 PM INSPECTOR PROCESS 07/01/2017 8:08 PM INSPECTOR PROCESS us Generic Conversion Md RED URINE ORDERABLES Final Result [facility] [address] [employer] [place] [address], * (ABNORMAL) COMPREHENSIVE METABOLIC PANEL (07/01/2017 7:28 PM INSPECTOR PROCESS) GLUCOSE 308(H) 70 - 99 MG/DL 07/01/2017 [...] PM [facility] 07/01/2017 7:28 PM INSPECTOR PROCESS 07/01/2017 7:35 PM [facility] us Generic Conversion Md RED LABORATORY Final R esult [facility] [address] [employer] [place] [address], * (ABNORMAL) CBC W/DIFF AUTOMATED (07/01/2017 7:28 PM INSPECTOR PROCESS) WBC 4.1(L) 4.5 - 10.8 x10'3/uL 07/01/2017 [...] 0.00 - 0.40 x10'3/uL 07/01/2017 7:58 PM INSPECTOR PROCESS [facility] ABS. BASOPHILS 0.03 0.00 - 0.20 x10'3/uL 07/01/2017 7:58 PM INSPECTOR PROCESS [facility] ABS. IMMATURE GRANULOCYTES 0.01 0.00 - 0.03 x10'3/uL 07/01/2017 7:58 PM INSPECTOR PROCESS [facility] ABS. NUCLEATED RBC'S 0.00 0.00 x10'3/uL 07/01/2017 7:58 PM INSPECTOR PROCESS [facility] PLT MORPH. DECREASED 07/01/2017 7:58 PM INSPECTOR PROCESS [facility] RBC MORPHOLOGY NORMAL 07/01/2017 7:58 PM INSPECTOR PROCESS [facility] OTHER (type in comments) 07/01/2017 7:28 PM INSPECTOR PROCESS 07/01/2017 7:35 PM INSPECTOR PROCESS Comment:WHOLE BLOOD SAMPLE us Generic Conversion Md RED LABORATORY Final R esult [facility] [address] [place] [address], [place] [phone] * (ABNORMAL) AMMONIA (07/01/2017 7:28 PM INSPECTOR PROCESS) AMMONIA 140(H) 18 - 72 UMOL/L 07/01/2017 7:53 PM INSPECTOR PROCESS [facility] PLASMA SPECIMEN / Unknown 07/01/2017 7:28 PM INSPECTOR PROCESS 07/01/2017 7:35 PM INSPECTOR PROCESS us Generic Conversion Md RED LABORATORY Final R esult [facility] [address] [place] [address], [place] [phone] documented in this encounter Visit Diagnoses Diagnosis Hepatic failure, without coma (CMS/HCC HHS/HCC) Other sequelae of chronic liver disease documented in this encounter
--- OUTSIDE RECORDS SUMMARY | 2024-05-08 05:46 | XMS_ITS | Encounter Summary ---
Author Organization [facility] Address [address] [place] [address]. [place] [address] [place] [address] Care Team Providers Care Keeper Head Name Role Phone Braydon Pavon Primary Care Provider [phone] Encounter Details Date Type Department Care Team (Late st Contact Info) Description 11/11/2020 11:18 PM CDT - 11/11/2020 11:52 PM CDT Emergency [facility] [address] [place] [address] Josué Wilson, DO [address] [place], [place] [id number] Discharge Disposition: Home or Self Care (Routine [...] through Care Everywhere. * Shingles Discharge Instructions (Chinese) documented in this encounter Medications at Time of Discharge Insulin Pen Needle (PEN NEEDLES) 32G X 4 MM Misc Inject 3 times daily 08/04/2019 lactulose 20 GM/30ML solution Take 30 mLs by mouth 4 (four) times daily. ONE TOUCH ULTRA TEST STRIPS test stripIndications: Type 2 diabetes mellitus with hyperglycemia, with long-term current use of insulin ([facility]/HCC HHS/HCC) Test 4 times daily 200 strip 11 09/06/2019 rifaximin 200 MG tablet Take 550 mg by mouth 2 (two) times daily. vitamin D2, ergocalciferol, 07029 UNITS capsule Take 50,000 Units by mouth [...] right leg. Pt states he was in [place] ED [facility] night with the same symptoms [...] state of health. History provided by: Patient account service representative used: No Medical History ALLERGIES: Allergies Allergen [...] inhaler 04/04/19 Doc Abstract vitamin D2, ergocalciferol, 13380 UNITS capsule Take 50,000 Units by mouth [...] st Contact Info) Description 05/10/2024 11:40 AM STATION INSTALLATION SUPERVISOR Office Visit [facility] Diabetes and Endocrinology - [address] [phone] Eva Power MD [address] [place] [phone] documented as of this encounter Visit [...] RN) documented in this encounter Care Teams Keeper Head Relationship Specialty Start Date End Date Braydon Pavon PA [address] [place] [address] PCP - General PHYSICIAN PRODUCTION MANUFACTURING WORKER 03/02/19 documented as of this encounter
--- OUTSIDE RECORDS SUMMARY | 2024-05-08 05:46 | XMS_ITS | Encounter Summary ---
Author Organization [facility] Address [address] [place] [address]. [place] [address] [place] [address] Care Team Providers Care Goodwill Ambassador Name Role Phone Braydon Pavon Primary Care Provider [phone] Encounter Details Date Type Department Care Team (Late Contact Info) Description 05/11/2019 Orders Only [facility] [address] [address] Lacy Hurtado CNA Social History [...] (Late Contact Info) Description 05/10/2024 11:40 AM ERECTION SHOP SUPERVISOR Office Visit [facility] Diabetes and Endocrinology - [address] [phone] Eva Power MD [address] [place] [phone] documented as of this encounter Visit Diagnoses Diagnosis Pain- Primary Generalized pain documented in this encounter Care Teams Goodwill Ambassador Relationship Specialty Start Date End Date Braydon Pavon PA [address] [place] [address] PCP - General PHYSICIAN DOMESTIC LAUNDRY WORKER 03/02/19 documented as of this encounter
--- OUTSIDE RECORDS SUMMARY | 2024-05-08 05:46 | XMS_ITS | Encounter Summary ---
Author Organization [facility] Address Critical access hospital6 [facility]. [place], [place] [address] [place] [address] Care Team Providers Care Consumer Loan Officer Name Role Phone Braydon Pavon Primary Care Provider [phone] Reason for Visit * Reason Comments Back [...] CDT - 03/02/2019 9:50 PM CDT [facility] Emergency [facility] [place] [address] Gerry Faustin MD [address] [place] [phone] Back Pain (Pt has multiple health issues. [...] 2 (two) times daily. vitamin D2, ergocalciferol, 77344 UNITS capsule Take 50,000 Units by mouth [...] He apparently used to see someone at [facility] and was starting to see someone at [facility] and that something happened with his insurance. He states that the specialistin [place] did not take his insurance either. He states over the last 2 weeks he said progressive pain to the back right flank area which she believes is from his liver. He also recently was seenat [place] [facility] after coughing and vomiting up [...] (two) times daily. ??? vitamin D2, ergocalciferol, 15783 UNITS capsule Take 50,000 Units by mouth [...] file Gets together: Not on file Attends latter day service: Not on file Active member of [...] that he should probably just go rightto [place] to be evaluated. I told him that [...] adamant about leaving and going directly to [place] although he would not say which hospital [...] st Contact Info) Description 05/10/2024 11:40 AM POWERHOUSE ELECTRICIAN APPRENTICE Office Visit [facility] Medical Group Diabetes and Endocrinology - [address] [phone] Eva Power MD [address] [place] [address] documented as of this encounter Visit Diagnoses Diagnosis Chronic liver disease- Primary Unspecified chronic liver disease without mention of alcohol documented in this encounter Care Teams Consumer Loan Officer Relationship Specialty Start Date End Date Braydon Pavon PA [address] [place] [address] PCP - General PHYSICIAN BARREL TURNER 03/02/19 documented as of this encounter
--- OUTSIDE RECORDS SUMMARY | 2024-05-08 05:46 | XMS_ITS | Encounter Summary ---
Author Organization [facility] Address [address] [place] [address]. [place] [address] [place] [address] Care Team Providers Care Business Services Director Name Role Phone Braydon Pavon Primary Care Provider [phone] Reason for Visit * Reason Onset Date Comments Callback 02/19/2024 Medication Problem 02/19/2024 Encounter Details Date Type Department Care Team (Late st Contact Info) Description 02/19/2024 Telephone [facility] Medical [facility] Diabetes and Endocrinology - [place] [address] [place] [phone] Paul Chanel MD [address] [place] [address] Callback; Medication Problem Social History Tobacco [...] Voiced understanding. 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 * Paul Chanel MD - 02/19/2024 3:24 PM CDTAddended by: PALU CHANEL on: 02/19/2024 03:24 PM Modules accepted: [...] Curry Mane Facility name: Call back/ext. #: [phone] Call details: Patient cannot take metformin it is messing with his stomach. And he does not believes that his insulin is not a high enough dose. Needing to speak with a nurse to make sure his math is correct Dexcom G7 pattern worker is not working and he is requesting a new one. documented in this encounter Plan of Treatment Upcoming Encounters Date Type Department Care Team (Late st Contact Info) Description 05/10/2024 11:40 AM SUPPLIER QUALITY ENGINEER Office Visit [facility] Medical Group Diabetes and Endocrinology - [address] [phone] Paul Chanel MD [address] [place] [address] documented as of this encounter Visit Diagnoses Diagnosis Type 2 diabetes mellitus with hyperglycemia, with long-term current use of insulin ([facility]) documented in this encounter Care Teams Business Services Director Relationship Specialty Start Date End Date Braydon Pavon PA [address] [place] [address] PCP - General PHYSICIAN CAFETERIA COUNTER ATTENDANT 03/02/19 documented as of this encounter
--- OUTSIDE RECORDS SUMMARY | 2024-05-08 05:46 | XMS_ITS | Encounter Summary ---
Author Organization [facility] Address [address] [place] [address]. [place] [address] [place] [address] Care Team Providers Care Digital Media Analyst Name Role Phone Unavailable Primary Care Provider Unavailabl e Encounter Details Date Type Department Care Team (Late Contact Info) Description 11/02/2016 Abstract [place] [facility] [place] [address] Sameera Villa MD [address] [place] [address] Social History Tobacco Use Types [...] (Late Contact Info) Description 05/10/2024 11:40 AM LEARNING COORDINATOR Office Visit [facility] Medical Group Diabetes and Endocrinology - [address] [phone] Eva Power MD [address] [facility] [place], [place] [phone] documented as of this encounter Procedures Procedure [...] - 99 MG/DL 11/02/2016 9:29 AM CDT [facility] BUN 11 9 - 21 MG/DL 11/02/2016 9:29 AM CDT [facility] CREATININE S/P/B 0.78 0.72 - 1.25 MG/DL 11/02/2016 9:34 AM CDT [facility] SODIUM S/P/B 141 136 - 145 MMOL/L 11/02/2016 9:29 AM CDT [facility] POTASSIUM S/P/B 3.9 3.5 - 5.1 MMOL/L 11/02/2016 9:29 AM CDT [facility] CHLORIDE S/P/B 109(H) 98 - 107 MMOL/L 11/02/2016 9:29 AM CDT [facility] CO2 26.0 22.0 - 29.0 MMOL/L 11/02/2016 9:29 AM CDT [facility] CALCIUM S/P/B 9.1 8.4 - 10.2 MG/DL 11/02/2016 9:29 AM CDT [facility] BILIRUBIN TOTAL S/P/B 1.2 0.2 - 1.2 MG/DL 11/02/2016 9:29 AM CDT [facility] TOTAL PROTEIN S/P/B 6.1 6.0 - 8.3 G/DL 11/02/2016 9:29 AM CDT [facility] ALBUMIN S/P/B 3.4(L) 3.5 - 5.2 G/DL 11/02/2016 9:29 AM CDT [facility] AST 48(H) 5 - 34 U/L 11/02/2016 9:29 AM CDT [facility] ALT 61(H) 0 - 55 U/L 11/02/2016 9:29 AM CDT [facility] ALKALINE PHOSPHATASE S/P/B 67 50 - 136 U/L 11/02/2016 9:29 AM CDT [facility] OSMOLALITY (CALC) 287 275 - 300 MOSM/KG 11/02/2016 9:29 AM CDT [facility] A/G RATIO 1.3 1.0 - 1.6 RATIO 11/02/2016 9:29 AM T [facility] BUN CREATININE RATIO 14.1 12 - 20 11/02/2016 9:34 AM T [facility] ANION GAP 6.0(L) 7 - 16 MMOL/L 11/02/2016 9:29 AM T [facility] EGFR NON-AFR. AMER. >60 >60 ML/MIN/1.7 3 M2 11/02/2016 9:34 AM T [facility] EGFR AFR. AMER. >60 >60 ML/MIN/1.7 3 M2 11/02/2016 9:34 AM T [facility] 11/02/2016 9:04 AM CDT 11/02/2016 9:07 AM CDT us Generic Conversion Md [facility] Final R esult [facility] [address] [place] [address], * (ABNORMAL) CBC W/DIFF AUTOMATED (11/02/2016 9:04 AM CDT) WBC 3.7(L) 4.5 - 10.8 x10'3/uL 11/02/2016 9:26 AM CDT [facility] RBC 4.35(L) 4.50 - 6.10 x10'6/uL 11/02/2016 9:26 AM CDT [facility] HGB 12.5(L) 13.0 - 18.0 G/DL 11/02/2016 9:26 AM CDT [facility] HCT 35.9(L) 37.0 - 52.0 % 11/02/2016 9:26 AM CDT [facility] MCV 82.5 78.0 - 100.0 FL 11/02/2016 9:26 AM CDT [facility] MCH 28.7 27.0 - 31.0 PG 11/02/2016 9:26 AM CDT [facility] MCHC 34.8 33.0 - 36.0 G/DL 11/02/2016 9:26 AM CDT [facility] RDW 14.6(H) 11.5 - 14.5 % 11/02/2016 9:26 AM CDT [facility] PLT 78(L) 150 - 350 x10'3/uL 11/02/2016 9:26 AM CDT [facility] MPV 10.6(H) 7.4 - 10.4 FL 11/02/2016 9:26 AM CDT [facility] SEG NEUTROPHILS 63.9 % 7 9:42 AM CDT [facility] LYMPHOCYTES 22.5 % 11/02/2016 9:42 AM CDT [facility] MONOCYTES 9.8 % 11/02/2016 9:42 AM CDT [facility] EOSINOPHILS 3.0 % 11/02/2016 9:42 AM CDT [facility] BASOPHILS 0.5 % 11/02/2016 9:42 AM CDT [facility] IMMATURE GRANS % 0.3 % 11/03/19 17 9:42 AM CDT [facility] NRBC 0.0 % 11/02/2016 9:42 AM CDT [facility] ABS. NEUTROPHILS 2.36 1.60 - 8.30 x10'3/uL 11/02/2016 9:42 AM CDT [facility] ABS. LYMPHOCYTES 0.83 0.80 - 4.70 x10'3/uL 11/02/2016 9:42 AM CDT [facility] ABS. MONOCYTES 0.36 0.00 - 1.50 x10'3/uL 11/02/2016 9:42 AM CDT [facility] ABS. EOSINOPHILS 0.11 0.00 - 0.40 x10'3/uL 11/02/2016 9:42 AM CDT [facility] ABS. BASOPHILS 0.02 0.00 - 0.20 x10'3/uL 11/02/2016 9:42 AM CDT [facility] ABS. IMMATURE GRANULOCYTES 0.01 0.00 - 0.03 x10'3/uL 11/02/2016 9:42 AM CDT [facility] ABS. NUCLEATED RBC'S 0.00 0.00 x10'3/uL 11/02/2016 9:42 AM CDT [facility] PLT MORPH. DECREASED 11/02/2016 9:42 AM CDT [facility] RBC MORPHOLOGY NORMAL 11/02/2016 9:42 AM CDT [facility] OTHER (type in comments) 11/02/2016 9:04 AM CDT 11/02/2016 9:07 AM CDT Comment:WHOLE BLOOD SAMPLE us Generic Conversion Md [facility] Final R esult [facility] [address] [place] [address], * CARDIAC PROFILE (11/02/2016 9:04 AM CDT) CPK 76 30 - 200 U/L 11/02/2016 9:34 AM CDT [facility] CK-MB 1.9 0.0 - 3.4 NG/ML 11/02/2016 9:34 AM CDT [facility] CK INDEX 2.5 % 11/02/2016 9:34 AM CDT [facility] Comment: A CK-MB OF >5 NG/ML AND A CK-MB RELATIVE INDEX OF >4% IS SUGGESTED BEING CONSISTENT WITH ACUTE MYOCARDIAL INFARCTION. TROPONIN I 0.021 0.000 - 0.028 NG/ML 11/02/2016 9:34 AM CDT [facility] Comment: =INDETERMINATE: 0.029-<0.300 NG/ML=PRESUMPTIVE AMI: GREATER THAN OR EQUAL TO 0.300 NG/ML=CONDITIONS RESULTING IN MYOCARDIAL CELL DAMAGE CAN POTENTIALLY INCREASE LEVELS ??ABOVE THE EXPECTED RANGE. SERUM OR PLASMA SPECIMEN / Unknown 11/02/2016 9:04 AM CDT 11/02/2016 9:07 AM CDT us Generic Conversion Md [facility] Final R jaziel Performing Organization Address City/[facility]/ZIP Co de Phone Number [facility] [address] [place] [address], * PRO-BRAIN NATRIURETIC PEPTIDE (11/02/2016 9:04 AM CDT) B TYPE NATRIURETIC PEPTIDE 39 <100 PG/ML 11/02/2016 9:32 AM CDT [facility] WHOLE BLOOD SPECIMEN / Unknown 11/02/2016 9:04 AM CDT 11/02/2016 9:07 AM CDT us Generic Conversion Md [facility] William R jaziel Performing Organization Address City/[facility]/ZIP Co de Phone Number [facility] [address] [place] [address], * BETA-HYDROXYBUTYRATE (11/02/2016 9:04 AM CDT) BETA-HYDROXYBUT YRATE 0.1 0.0 - 0.3 MMOL/L 11/02/2016 9:21 AM CDT [facility] SERUM OR PLASMA SPECIMEN / Unknown 11/02/2016 9:04 AM CDT 11/02/2016 9:07 AM CDT us Generic Conversion Md [facility] Final R esult Performing Organization Address City/[facility]/ZIP Co de Phone Number [facility] [address] [place] [address], [place] [phone] * (ABNORMAL) AMMONIA (11/02/2016 9:04 AM CDT) AMMONIA 127(H) 18 - 72 UMOL/L 11/02/2016 9:22 AM CDT [facility] PLASMA SPECIMEN / Unknown 11/02/2016 9:04 AM CDT 11/02/2016 9:07 AM CDT us Generic Conversion Md [facility] Final R jaziel Performing Organization Address [facility]/ZIP Co de Phone Number [facility] [address] [place] [address], [place] [phone] documented in this encounter Visit Diagnoses Diagnosis Shortness of breath documented in this encounter
--- OUTSIDE RECORDS SUMMARY | 2024-05-08 05:46 | XMS_ITS | Encounter Summary ---
Author Organization [facility] Address [address] [place] [address]. [place] [address] [place] [address] Care Team Providers Care Quality Assurance Name Role Phone Unavailable Primary Care Provider Unavailabl e Encounter Details Date Type Department Care Team (Latest Contact Info) Description 09/30/2017 Abstract [facility] Medical Group Social [...] st Contact Info) Description 05/10/2024 11:40 AM PURCHASING AND FISCAL CLERK Office Visit [facility] Medical Group Diabetes and Endocrinology - [address] [phone] Eva Power MD [address] [place] [phone] documented as of this encounter Visit Diagnoses Not on filedocumented in this encounter
--- OUTSIDE RECORDS SUMMARY | 2024-05-08 05:47 | XMS_ITS | Encounter Summary ---
Author Organization [facility] Address [address] [place] [address]. [place] [address] [place] [address] Care Team Providers Care Certified Mortician Name Role Phone Unavailable Primary Care Provider Unavailabl e Encounter Details Date Type Department Care Team (Late st Contact Info) Description 10/31/2015 Abstract [facility] [address] [place] [address] Sean Morfin MD [address] [place] [phone] Social History Tobacco Use Types Packs/Day Years [...] Contact Info) Description 05/10/2024 11:40 AM CLEANER TOUCH UP WORKER Office Visit [facility] Medical Group Diabetes and Endocrinology - [address] [phone] Eva Power MD [address] [place] [address] documented as of this encounter Visit Diagnoses Diagnosis Anemia Anemia, unspecified documented in this encounter
--- OUTSIDE RECORDS SUMMARY | 2024-05-08 05:47 | XMS_ITS | Encounter Summary ---
Author Organization [facility] Address [address] [place] [address]. [place] [address] [place] [address] Care Team Providers Care Coil Taper Name Role Phone Unavailable Primary Care Provider Unavailabl e Encounter Details Date Type Department Care Team (Latest Contact Info) Description 09/14/2016 Abstract [facility] Medical Group Social History Tobacco [...] st Contact Info) Description 05/10/2024 11:40 AM FOOD SAFETY SCIENTIST Office Visit [facility] Medical Group Diabetes and Endocrinology - [address] [phone] Eva Power MD [address] [place] [phone] documented as of this encounter Visit Diagnoses Not on filedocumented in this encounter
--- OUTSIDE RECORDS SUMMARY | 2024-05-08 05:47 | XMS_ITS | Encounter Summary ---
Author Organization [facility] Address [address] [place] [address]. [place] [address] [place] [address] Care Team Providers Care Personnel Analyst Name Role Phone Unavailable Primary Care Provider Unavailabl e Encounter Details Date Type Department Care Team (Late st Contact Info) Description 07/01/2013 [facility] Emergency Room [address] [facility] [place] [address] Social History Tobacco Use Types Packs/Day Years [...] st Contact Info) Description 05/10/2024 11:40 AM LEAD FABRICATOR Office Visit [facility] Medical Group Diabetes and Endocrinology - [address] [phone] Eva Power MD [address] [place], [place] [address] [address] documented as of this encounter Visit Diagnoses Diagnosis Other chest pain documented in this encounter
--- OUTSIDE RECORDS SUMMARY | 2024-05-08 05:47 | XMS_ITS | Encounter Summary ---
Author Organization [facility] Address [address] [place] [address]. [place] [address] [place] [address] Care Team Providers Care Clinical Research Assistant Name Role Phone Unavailable Primary Care Provider Unavailabl e Encounter Details Date Type Department Care Team (Late st Contact Info) Description 11/02/2015 Abstract [facility] [address] [facility] [place] [place] [address] Gerry Faustin MD [address] [place] [address] Social History Tobacco Use Types Packs/Day [...] (Late Contact Info) Description 05/10/2024 11:40 AM IN HOME NANNY Office Visit [facility] Medical Group Diabetes and Endocrinology - [address] [phone] Eva Power MD [address] [place] [phone] documented as of this encounter Visit Diagnoses Diagnosis Gastrointestinal hemorrhage Hemorrhage of gastrointestinal tract, unspecified documented in this encounter
--- OUTSIDE RECORDS SUMMARY | 2024-05-08 05:47 | XMS_ITS | Encounter Summary ---
Author Organization [facility] Address [address] [place] [address]. [place] [address] [place] [address] Care Team Providers Care Activity Aide Name Role Phone Unavailable Primary Care Provider Unavailabl e Encounter Details Date Type Department Care Team (Late st Contact Info) Description 08/28/2015 [facility] Emergency Room [address] [facility] [place] [address] Social History Tobacco Use Types Packs/Day Years [...] st Contact Info) Description 05/10/2024 11:[address]PERVISOR Office Visit [facility] Medical Group Diabetes and Endocrinology - [address] [phone] Eva Power MD [address] [place], [place] [address] [address] documented as of this encounter Visit Diagnoses Diagnosis Adverse effect of other opioids, initial encounter documented in this encounter
--- OUTSIDE RECORDS SUMMARY | 2024-05-08 05:47 | XMS_ITS | Encounter Summary ---
Author Organization [facility] Address [address] [place] [address]. [place] [address] [place] [address] Care Team Providers Care Castings Drafter Name Role Phone Unavailable Primary Care Provider Unavailabl e Encounter Details Date Type Department Care Team (Latest Contact Info) Description 08/20/2016 Abstract [facility] Medical Group Social History Tobacco [...] Contact Info) Description 05/10/2024 11:40 AM SENIOR QUALITY TECHNICIAN Office Visit [facility] Medical Group Diabetes and Endocrinology - [address] [phone] Eva Power MD [address] [place] [phone] documented as of this encounter Visit Diagnoses Not on filedocumented in this encounter
--- OUTSIDE RECORDS SUMMARY | 2024-05-08 05:47 | XMS_ITS | Encounter Summary ---
Author Organization [facility] Address [address] [place] [address]. [place] [address] [place] [address] Care Team Providers Care Project Technician Name Role Phone Unavailable Primary Care Provider Unavailabl e Encounter Details Date Type Department Care Team (Late st Contact Info) Description 08/06/2015 Abstract [facility] [address] [facility] [place] [address] Sean Morfin MD [address] [place] [phone] Social History Tobacco Use Types Packs/Day Years [...] st Contact Info) Description 05/10/2024 11:40 AM COMPUTER TECHNICAL SPECIALIST Office Visit [facility] Medical Group Diabetes and Endocrinology - [address] [phone] Eva Power MD [address] [place] [address] [place], [place] [phone] documented as of this encounter Visit Diagnoses Diagnosis Secondary esophageal varices without bleeding (CMS/HCC HHS/HCC) Esophageal varices without mention of bleeding in diseases classified elsewhere documented in this encounter
--- OUTSIDE RECORDS SUMMARY | 2024-05-08 05:47 | XMS_ITS | Encounter Summary ---
Author Organization [facility] Address [address] [place] [address]. [place] [address] [place] [address] Care Team Providers Care Coal Washer Tender Name Role Phone Unavailable Primary Care Provider Unavailabl e Encounter Details Date Type Department Care Team (Latest Contact Info) Description 09/09/2016 Abstract [facility] Medical Group Social History Tobacco [...] st Contact Info) Description 05/10/2024 11:40 AM IT SALES CONSULTANT Office Visit [facility] Medical Group Diabetes and Endocrinology - [address] [phone] Eav Power MD [address] [place] [phone] documented as of this encounter Visit Diagnoses Not on filedocumented in this encounter
--- OUTSIDE RECORDS SUMMARY | 2024-05-08 05:47 | XMS_ITS | Encounter Summary ---
Author Organization [facility] Address [address] [place] [address]. [place] [address] [place] [address] Care Team Providers Care Overhead Foreman Name Role Phone Unavailable Primary Care Provider Unavailabl e Encounter Details Date Type Department Care Team (Latest Contact Info) Description 09/23/2016 Abstract [facility] Medical Group Eva Power MD [facility] [place], [place] [phone] Social History Tobacco Use Types Packs/Day Years [...] st Contact Info) Description 05/10/2024 11:40 AM ELECTRIC WHEELCHAIR REPAIRER Office Visit [facility] Medical Group Diabetes and Endocrinology - [address] [phone] Eva Power MD [facility] [address] [place], [place] [address] documented as of this encounter Visit Diagnoses Not on filedocumented in this encounter
--- OUTSIDE RECORDS SUMMARY | 2024-05-08 05:47 | XMS_ITS | Encounter Summary ---
Author Organization [facility] Address [address] [place] [address]. [place] [address] [place] [address] Care Team Providers Care Senior Clinical Project Manager Name Role Phone Unavailable Primary Care Provider Unavailabl e Encounter Details Date Type Department Care Team (Late st Contact Info) Description 02/02/2014 [facility] [address] [place] [address] , Sarina Dotson MD Social [...] st Contact Info) Description 05/10/2024 11:40 AM TARE MAN Office Visit [facility] Diabetes and Endocrinology - [address] [phone] Eva Power MD [address] [place] [address] documented as of this encounter Visit Diagnoses Not on filedocumented in this encounter
--- OUTSIDE RECORDS SUMMARY | 2024-05-08 05:47 | XMS_ITS | Encounter Summary ---
Author Organization [facility] Address [address] [place] [address]. [place], [place] [address] [place] [address] Care Team Providers Care Business Sales Consultant Name Role Phone Unavailable Primary Care Provider Unavailabl e Encounter Details Date Type Department Care Team (Latest Contact Info) Description 02/22/2015 Abstract [facility] Ole Jones MD Social [...] that he has some arthritis a L3-L4 [place] with the pain in the right L4-L5 [...] 500 MG Oral Tablet Delayed Release; Therapy: [id number] to Recorded 2. Hydrocodone-Acetaminophen 10-325 MG Oral Tablet; Therapy: (Recorded:[id number]) to Recorded 3. MetFORMIN HCl - 500 MG Oral Tablet; Therapy: (Recorded:[id number]) to Recorded 4. Xanax TABS (ALPRAZolam); Therapy: (Recorded:[id number]) to Recorded Allergies 1. azithromycin 2. esomeprazole [...] Need Information - Financial Authorization Requested for: [id number] At request the patient she will be referred to a neurosurgeon and spindle I recommended the name ofDr. Chu he was given a prescription for Ultram 50 mg 1-2 t.i.d. he will be call my office is regarding cultures recommendation for a Renny Vásquez Signatures Electronically signed by : Sean Jones M.D.; Feb 28 2015 10:24AM RN COMPLEX CARE (Author) documented in this encounter Plan of Treatment Upcoming Encounters Date Type Department Care Team (Late st Contact Info) Description 05/10/2024 11:40 AM RN COMPLEX CARE Office Visit [facility] Diabetes and Endocrinology - [address] [phone] Eva Power MD [address] [place] [phone] documented as of this encounter Visit Diagnoses Not on filedocumented in this encounter
--- OUTSIDE RECORDS SUMMARY | 2024-05-08 05:47 | XMS_ITS | Encounter Summary ---
Author Organization [facility] Address [address] [place] [address]. [place] [address] [place] [address] Care Team Providers Care Loader Helper Name Role Phone Unavailable Primary Care Provider Unavailabl e Encounter Details Date Type Department Care Team (Late Contact Info) Description 08/03/2015 Abstract [facility] [address] Sean Morfin MD [address] [place] [phone] Social History Tobacco Use Types Packs/Day Years [...] (Late Contact Info) Description 05/10/2024 11:40 AM MILLING MACHINE SET UP OPERATOR Office Visit [facility] Medical Group Diabetes and Endocrinology - [address] [phone] Eva Power MD [address] [place] [address] [place], [place] 330571 documented as of this encounter Visit Diagnoses Diagnosis Esophageal varices with bleeding (CMS/HCC HHS/HCC) documented in this encounter
--- OUTSIDE RECORDS SUMMARY | 2024-05-08 05:47 | XMS_ITS | Encounter Summary ---
Author Organization [facility] Address [address] [place] [address]. [place], [place] [address] [place] [address] Care Team Providers Care Refurbish Technician Name Role Phone Unavailable Primary Care Provider Unavailabl e Encounter Details Date Type Department Care Team (Latest Contact Info) Description 12/28/2014 Abstract [facility] Ole Jones MD Social History [...] of back pain. He was evaluated in [place] with the MRI and did a lumbar [...] but I don't have any report from [place]. No headache no progress made. He is [...] Extended Release 24 Hour (Amphetamine-Dextroamphet ER); Therapy: (Recorded:[id number]) to Recorded 2. Divalproex Sodium 500 MG Oral Tablet Delayed Release; Therapy: [id number] to Recorded 3. Hydrocodone-Acetaminophen 10-325 MG Oral Tablet; Therapy: (Recorded:[id number]) to Recorded 4. MetFORMIN HCl - 500 MG Oral Tablet; Therapy: (Recorded:[id number]) to Recorded 5. Xanax TABS (ALPRAZolam); Therapy: (Recorded:[id number]) to Recorded Allergies 1. azithromycin 2. esomeprazole 3. nisoldipine 4. Penicillins 5. sulfa Vitals Recorded: 46Eqk4635 04:05PM Systolic 129 Diastolic 85 Height 5 [...] 1. MRI Lumbar Spine WO; Status:Active; Requested for:[id number]; Perform:Other Radiology; Due:[id number]; Last Updated By:Judy Ledesma; 12/28/2014 3:48:17 PM;Ordered; [...] Sean Jones M.D.; Jan 04 2015 11:45AM MEND WORKER (Author) documented in this encounter Plan of Treatment Upcoming Encounters Date Type Department Care Team (Late st Contact Info) Description 05/10/2024 11:40 AM MEND WORKER Office Visit [facility] Medical Group Diabetes and Endocrinology - [address] [phone] Eva Power MD [address] [place] [address] documented as of this encounter Visit Diagnoses Not on filedocumented in this encounter
--- OUTSIDE RECORDS SUMMARY | 2024-05-08 05:47 | XMS_ITS | Encounter Summary ---
Author Organization [facility] Address [address] [place] [address]. [place], [place] [address] [place] [address] Care Team Providers Care Leasing Director Name Role Phone Unavailable Primary Care Provider Unavailabl e Encounter Details Date Type Department Care Team (Latest Contact Info) Description 09/08/2016 Abstract [facility] Social History Tobacco Use Types [...] Espinoza Task Name: Call Back Assigned To: [facility] Nurse Team Regarding Patient: Camilo Curry, Status: [...] Chantelle Espinoza, ; Sep 08 2016 4:15PM CONTINUOUS MINER OPERATOR HELPER (Author) documented in this encounter Plan of Treatment Upcoming Encounters Date Type Department Care Team (Late st Contact Info) Description 05/10/2024 11:40 AM CONTINUOUS MINER OPERATOR HELPER Office Visit [facility] Diabetes and Endocrinology - [address] [phone] Eva Power MD [address] [place] [address] documented as of this encounter Visit Diagnoses Not on filedocumented in this encounter
--- OUTSIDE RECORDS SUMMARY | 2024-05-08 05:47 | XMS_ITS | Encounter Summary ---
Author Organization [facility] Address [address] [place] [address]. [place] [address] [place] [address] Care Team Providers Care Muff Winder Name Role Phone Unavailable Primary Care Provider Unavailabl e Encounter Details Date Type Department Care Team (Late st Contact Info) Description 08/01/2015 Abstract [place] [address] [facility] [place] [address] Gerry Faustin MD [address] [place] [address] Social History Tobacco Use Types Packs/Day [...] (Late Contact Info) Description 05/10/2024 11:40 AM MAINSPRING FORMER Office Visit [facility] Medical Group Diabetes and Endocrinology - [address] [phone] Eva Power MD [address] [place] [phone] documented as of this encounter Visit Diagnoses Diagnosis Hemoptysis Hemoptysis, unspecified documented in this encounter
--- OUTSIDE RECORDS SUMMARY | 2024-05-08 05:47 | XMS_ITS | Encounter Summary ---
Author Organization [facility] Address [address] [place] [address]. [place] [address] [place] [address] Care Team Providers Care Automobile Contract Clerk Name Role Phone Unavailable Primary Care Provider Unavailabl e Encounter Details Date Type Department Care Team (Late st Contact Info) Description 11/06/2015 [facility] [address] [facility] [place] [address] Gerry Faustin MD [address] [place] [address] Social History Tobacco Use Types Packs/Day [...] (Late Contact Info) Description 05/10/2024 11:40 AM AIR PUMPER Office Visit [facility] Medical Group Diabetes and Endocrinology - [address] [phone] Eva Power MD [address] [place] [address] [phone] documented as of this encounter Visit Diagnoses Diagnosis Diarrhea documented in this encounter
--- OUTSIDE RECORDS SUMMARY | 2024-05-08 05:47 | XMS_ITS | Encounter Summary ---
Author Organization [facility] Address [address] [place] [address]. [place] [address] [place] [address] Care Team Providers Care Aircraft Maintenance Instructor Name Role Phone Unavailable Primary Care Provider Unavailabl e Encounter Details Date Type Department Care Team (Late st Contact Info) Description 02/28/[address] [facility] [address] [facility] [place] [address] Arian Swartz MD [address] [place] [phone] Social History Tobacco Use Types Packs/Day Years [...] st Contact Info) Description 05/10/2024 11:40 AM SAFETY ENGINEER Office Visit [facility] Group Diabetes and Endocrinology - [place] [address] [place] [phone] Eva Power MD [facility]8 [facility] [place], [place] [address] documented as of this encounter Visit Diagnoses Not on filedocumented in this encounter
--- OUTSIDE RECORDS SUMMARY | 2024-05-08 05:47 | XMS_ITS | Encounter Summary ---
Author Organization [facility] Address [address] [place] [address]. [place] [address] [place] [address] Care Team Providers Care Account Installation Specialist Name Role Phone Unavailable Primary Care Provider Unavailabl e Encounter Details Date Type Department Care Team (Latest Contact Info) Description 11/15/2014 Abstract [facility] Medical Group Social History Tobacco Use [...] st Contact Info) Description 05/10/2024 11:40 AM FLAKE OR SHRED ROLL OPERATOR Office Visit [facility] Medical Group Diabetes and Endocrinology - [address] [phone] Eva Power MD [address] [place] [phone] documented as of this encounter Visit Diagnoses Not on filedocumented in this encounter
--- OUTSIDE RECORDS SUMMARY | 2024-05-08 05:47 | XMS_ITS | Encounter Summary ---
Author Organization [facility] Address [address] [place] [address]. [place] [address] [place] [address] Care Team Providers Care Trauma Registrar Name Role Phone Unavailable Primary Care Provider Unavailabl e Encounter Details Date Type Department Care Team (Late st Contact Info) Description 12/29/2015 [facility] Room [address] [place] [address] Social History Tobacco Use Types Packs/Day Years [...] st Contact Info) Description 05/10/2024 11:40 AM SAT MATH TUTOR Office Visit [facility] Medical Group Diabetes and Endocrinology - [address] [phone] Eva Power MD [address] [place], [place] [address] [address] documented as of this encounter Visit Diagnoses Diagnosis Secondary esophageal varices with bleeding (CMS/HCC HHS/HCC) Esophageal varices with bleeding in diseases classified elsewhere documented in this encounter
--- OUTSIDE RECORDS SUMMARY | 2024-05-08 05:47 | XMS_ITS | Encounter Summary ---
Author Organization [facility] Address [facility] [place] [address] [place] [address] Care Team Providers Care Rattle Leak And Squeak Repairer Name Role Phone Unavailable Primary Care Provider Unavailabl e Encounter Details Date Type Department Care Team (Late st Contact Info) Description 07/09/2015 Abstract [facility] - [place] [address] [place] [address] Ar Nguyễn MD [address] [place] [address] [phone] Social History Tobacco Use Types Packs/Day Years [...] Contact Info) Description 05/10/2024 11:40 AM ELECTRIC METER TECHNICIAN Office Visit [facility] Diabetes and Endocrinology - [place] [address] [place] [phone] Eva Power MD [address] [place] [address] documented as of this encounter Visit Diagnoses Not on filedocumented in this encounter
--- OUTSIDE RECORDS SUMMARY | 2024-05-08 05:47 | XMS_ITS | Encounter Summary ---
Author Organization [facility] Address [address] [place] [address]. [place] [address] [place] [address] Care Team Providers Care Payment Manager Name Role Phone Unavailable Primary Care Provider Unavailabl e Encounter Details Date Type Department Care Team (Late st Contact Info) Description 08/21/2015 [facility] 1215 [facility] [place] [address] Jalen Wilkerson MD Social History Tobacco Use [...] Info) Description 05/10/2024 11:40 AM DIRECTOR OF QUANTITATIVE RESEARCH Office Visit [facility] Diabetes and Endocrinology - [address] [phone] Eva Power MD [address] [place], [place] [address] [place] [address] documented as of this encounter Visit Diagnoses Diagnosis Calculus of gallbladder without cholecystitis without obstruction Calculus of gallbladder without mention of cholecystitis or obstruction documented in this encounter
--- OUTSIDE RECORDS SUMMARY | 2024-05-08 05:47 | XMS_ITS | Encounter Summary ---
Author Organization [facility] Address [address] [place] [address]. [place] [address] [place] [address] Care Team Providers Care Traffic Coordinator Name Role Phone Unavailable Primary Care Provider Unavailabl e Encounter Details Date Type Department Care Team (Latest Contact Info) Description 08/14/2016 Abstract [facility] Medical Group Social [...] st Contact Info) Description 05/10/2024 11:40 AM CRIB CLERK Office Visit [facility] Medical Group Diabetes and Endocrinology - [address] [phone] Eva Power MD [address] [place] [address] [phone] documented as of this encounter Visit Diagnoses Not on filedocumented in this encounter
--- OUTSIDE RECORDS SUMMARY | 2024-05-08 05:47 | XMS_ITS | Encounter Summary ---
Author Organization [facility] Address [address] [place] [address]. [place] [address] [place] [address] Care Team Providers Care Catholic Priest Name Role Phone Unavailable Primary Care Provider Unavailabl e Encounter Details Date Type Department Care Team (Latest Contact Info) Description 09/10/2016 Abstract [facility] Group Eva Power MD [facility] [place], [place] [phone] Social History Tobacco Use Types Packs/Day Years [...] st Contact Info) Description 05/10/2024 11:40 AM FELLER HAND Office Visit [facility] Medical Group Diabetes and Endocrinology - [address] [phone] Eva Power MD [facility] [address] [place], [place] [address] documented as of this encounter Visit Diagnoses Not on filedocumented in this encounter
--- OUTSIDE RECORDS SUMMARY | 2024-05-08 05:47 | XMS_ITS | Encounter Summary ---
Author Organization [facility] Address [address] [place] [address]. [place] [address] [place] [address] Care Team Providers Care Event Management Consultant Name Role Phone Unavailable Primary Care Provider Unavailabl e Encounter Details Date Type Department Care Team (Latest Contact Info) Description 09/10/2016 Abstract [facility] Medical Group Social [...] st Contact Info) Description 05/10/2024 11:40 AM SONOGRAM TECHNICIAN Office Visit [facility] Medical Group Diabetes and Endocrinology - [address] [phone] Eva Power MD [address] [place] [address] [phone] documented as of this encounter Visit Diagnoses Not on filedocumented in this encounter
--- OUTSIDE RECORDS SUMMARY | 2024-05-08 05:47 | XMS_ITS | Encounter Summary ---
Author Organization [facility] Address [address] [place] [address]. [place] [address] [place] [address] Care Team Providers Care Marketing Secretary Name Role Phone Unavailable Primary Care Provider Unavailabl e Encounter Details Date Type Department Care Team (Late Contact Info) Description 04/07/2016 Abstract [facility] 725 [place] [address] Sean Morfin MD [address] [place] [phone] Social History Tobacco Use Types Packs/Day Years [...] (Late Contact Info) Description 05/10/2024 11:40 AM DAIRY WORKER Office Visit [facility] Medical Group Diabetes and Endocrinology - [address] [phone] Eva Power MD [address] [place] [phone] documented as of this encounter Visit Diagnoses Diagnosis Osteoarthritis Osteoarthrosis, unspecified whether generalized or localized, unspecified site documented in this encounter
--- OUTSIDE RECORDS SUMMARY | 2024-05-08 05:47 | XMS_ITS | Encounter Summary ---
Author Organization [facility] Address [address] [place] [address]. [place] [address] [place] [address] Care Team Providers Care Beater And Pulper Feeder Name Role Phone Unavailable Primary Care Provider Unavailabl e Encounter Details Date Type Department Care Team (Late Contact Info) Description 11/29/2015 Abstract [place] [facility] [place] [address] Sean Morfin MD [address] [place] [phone] Social History Tobacco Use Types Packs/Day Years [...] (Late Contact Info) Description 05/10/2024 11:40 AM THREAD WEAVER Office Visit [facility] Medical Group Diabetes and Endocrinology - [address] [phone] Eva Power MD [address] [place] [address] [place], [place] [address] documented as of this encounter Visit Diagnoses Diagnosis Syncope and collapse documented in this encounter
--- OUTSIDE RECORDS SUMMARY | 2024-05-08 05:47 | XMS_ITS | Encounter Summary ---
Author Organization [facility] Address [address] [place] [address]. [place] [address] [place] [address] Care Team Providers Care Producer Arborist Manager Name Role Phone Unavailable Primary Care Provider Unavailabl e Encounter Details Date Type Department Care Team (Late st Contact Info) Description 07/09/[address] [facility] [address] [facility] [place] [address] Sean Morfin MD [address] [place] [phone] Social History Tobacco Use Types Packs/Day Years [...] (Late Contact Info) Description 05/10/2024 11:40 AM ALLIANCE CONSULTANT Office Visit [facility] Medical Group Diabetes and Endocrinology - [address] [phone] Eva Power MD [address] [place] [address] [place], [place] [phone] documented as of this encounter Visit Diagnoses Diagnosis Obstructive sleep apnea Obstructive sleep apnea (adult) (pediatric) documented in this encounter
--- OUTSIDE RECORDS SUMMARY | 2024-05-08 05:47 | XMS_ITS | Encounter Summary ---
Author Organization [facility] Address [address] [place] [address]. [place] [address] [place] [address] Care Team Providers Care Inset Cutter Name Role Phone Unavailable Primary Care Provider Unavailabl e Encounter Details Date Type Department Care Team (Latest Contact Info) Description 01/01/2015 Abstract [facility] Medical Group Ole Jones MD [...] st Contact Info) Description 05/10/2024 11:40 AM RADIOSONDE SPECIALIST Office Visit [facility] Medical Group Diabetes and Endocrinology - [address] [phone] Eva Power MD [address] [place] [phone] documented as of this encounter Visit Diagnoses Not on filedocumented in this encounter
--- OUTSIDE RECORDS SUMMARY | 2024-05-08 05:47 | XMS_ITS | Encounter Summary ---
Author Organization [facility] Address [address] [place] [address]. [place] [address] [place] [address] Care Team Providers Care Cant Hooker Name Role Phone Unavailable Primary Care Provider Unavailabl e Encounter Details Date Type Department Care Team (Late Contact Info) Description 10/02/2015 Abstract [facility] [address] [facility] [place] [address] Jorge Solis, DO [address] [place] [address] Social History Tobacco Use Types Packs/Day Years [...] (Late Contact Info) Description 05/10/2024 11:40 AM HOSE OPERATOR Office Visit [facility] Medical Group Diabetes and Endocrinology - [address] [phone] Eva Power MD [address] [place] [phone] documented as of this encounter Visit Diagnoses Diagnosis Acute bronchitis documented in this encounter
--- OUTSIDE RECORDS SUMMARY | 2024-05-08 05:47 | XMS_ITS | Encounter Summary ---
Author Organization [facility] Address [address] [place] [address]. [place] [address] [place] [address] Care Team Providers Care Real Estate Manager Name Role Phone Unavailable Primary Care Provider Unavailabl e Encounter Details Date Type Department Care Team (Late st Contact Info) Description 09/09/2016 Abstract [facility] Medical Group Diabetes and Endocrinology - [address] [phone] Eva Power MD [address] [place] [address] [phone] Social History Tobacco Use Types Packs/Day Years [...] GI in [place] - Dr. Bev Ellis ([facility]) The HbA1c was 7.7% performed on [...] 7. Penicillins 8. Sulfa Drugs Vitals Recorded: [id number] 10:29PM Heart Rate 100 Systolic 126 Diastolic [...] therapy; KATLYN = N; Verified Transmission to [facility]; Last Updated By: JacquelinePersonal Style Finder; 09/09/2016 11:48:37 AM 3. *Glucose, Whole Blood [...] Eva Power M.D.; Oct 09 2016 7:20PM ENHANCED ENVIRONMENTAL OPERATOR (Author) documented in this encounter Plan of Treatment Upcoming Encounters Date Type Department Care Team (Late st Contact Info) Description 05/10/2024 11:40 AM ENHANCED ENVIRONMENTAL OPERATOR Office Visit [facility] Medical Group Diabetes and Endocrinology - [address] [phone] Eva Power MD [address] [place] [address] [phone] documented as of this encounter Procedures Procedure [...]
--- OUTSIDE RECORDS SUMMARY | 2024-05-08 06:03 | XMS_ITS | Encounter Summary ---
Author Organization [facility] Address [address] 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 Patient did see hepatology at [facility] on 07/14/2023. Dr. Bedolla is who he [...] on filedocumented in this encounter Care Teams Floral Designer Relationship Specialty Start Date End Date Braydon Pavon PAC [address] [place] [address] PCP - General Physician C Web Developer 06/22/18 Vikram Mora MD [address] [phone] Consulting Physician Endocrinology 05/21/23 Riddhi Bello APRN, MEDICAL SCIENTIST [address] [place] [address] Nurse Practitioner Advanced Practice Nurse 02/10/23 documented as of this encounter
--- OUTSIDE RECORDS SUMMARY | 2024-05-08 06:03 | XMS_ITS | Clinical Summary ---
Author Organization [facility] Address [address] [place] [address] Phone Care Team Providers Care Sand Worker Name Role Phone Braydon Pavon VAL Primary Care Provider [phone] Vikram Mora MD Unavailable Riddhi Bello APRN, SOLAR INSTALLATION TECHNICIAN Unavailable Allergies Active Allergy Reactions Criticality Noted Date Comments Aztreonam In Dextrose Unknown 07/21/2018 Aztreonam Unknown 07/21/2018 Ciprofloxacin Hcl Unknown 07/21/2018 Duloxetine Hcl Unknown 07/21/2018 Erythromycin Unknown 07/21/2018 Iodinated Contrast Media Swelling,Rash Medium 02/03/20 Esomeprazole Magnesium Unknown 07/21/2018 Octreotide Unknown 07/21/2018 [...] as needed. 3 Active ergocalciferol (VITAMIN D) 29262 UNIT Capsule Take 50,000 Units by mouth. Active Insulin Pen Needle (B-D ULTRAFINE III SHORT PEN) 31G X 8 MM Misc 1 Active Insulin Pen Needle (B-D ULTRAFINE III SHORT PEN) 31G X 8 MM Misc 1 Each by Subcutaneous route. 1 Active Insulin Pen Needle (Pen [place]) 32G X 4 MM Misc Inject 3 [...] 10 Tablet 4 Active Continuous Blood Gluc Imager (Dexcom G7 Imager) Device Check blood glucose before each meal and at bedtime 1 Each 4 Active HYDROcodone-bella taminophen ([place]) 10-325 MG Tablet Take 1 Tablet by [...] back pain with left-sided sc iatica 07/19/2018 Immunizations Immunization Administration Dates Next Due Hepatitis [...] on file Legal Sex Male 10:58 AM TELEVISION PRODUCTION ASSISTANT Gender Identity Not on file Sexual [...] Screening 1970 TdaP Immunization 1970 Pneumococcal Immunization (50+ years) (1 of 2 - PCV) 1989 Hepatitis B Immunization (3 of 3 - 19+ 3-dose series) 03/12/2016 11/09/2015, 09/10/2015 Cologuard 2020 Immunochemical Fecal Occult Blood 2020 Zoster Immunization (1 of 2) 2020 Influenza Immunization (#1) 2024 SARS-COV-2 Immunization (3 - 2023- season) 2024 12/29/2020, 12/08/2020 Diabetes: Hemoglobin A1c [...] W/ ESTIMATED GLUCOSE STAT 05/20/2023 10:44 AM TELEVISION PRODUCTION ASSISTANT from Last 3 Months or Most Recently Relevant to Health Maintenance Results * (ABNORMAL) CMP (Comprehensive Metabolic Panel) (11/13/2023 6:40 PM CDT) SODIUM 139 136 - 145 mmol/L 11/13/2023 7:25 PM CDT [facility] POTASSIUM 3.7 3.5 - 5.1 mmol/L 11/13/2023 7:25 PM CDT [facility] CHLORIDE 105 98 - 107 mmol/L 11/13/2023 7:25 PM CDT [facility] CO2, VENOUS 24 22 - 30 mmol/L 11/13/2023 7:25 PM CDT [facility] ANION GAP 13.7 <18.0 mmol/L 11/13/2023 7:25 PM CDT [facility] GLUCOSE 188(H) 70 - 99 mg/dL 11/13/2023 7:25 PM CDT [facility] BUN 11 8 - 26 mg/dL 11/13/2023 7:25 PM CDT [facility] CREATININE, BLOOD 0.84 0.70 - 1.30 mg/dL 11/13/2023 7:25 PM CDT [facility] BUN/CREATININE RATIO 13 12 - 20 ratio 11/13/2023 7:25 PM [address] [facility] TOTAL PROTEIN 7.3 6.3 - 8.2 g/dL 11/13/2023 7:25 PM [address] [facility] ALBUMIN 3.9 3.5 - 5.0 g/dL 11/13/2023 7:25 PM CD[address] [facility] A/G RATIO 1.1 1.0 - 2.2 11/13/2023 7:25 PM CDT [facility] CALCIUM 9.4 8.7 - 10.5 mg/dL 11/13/2023 7:25 PM CD[address] [facility] T BILI 3.6(H) 0.2 - 1.2 mg/dL 11/13/2023 7:25 PM CDT [facility] SGOT (AST) 27 5 - 34 U/L 11/13/2023 7:25 PM CDT [facility] SGPT (ALT) 17 0 - 55 U/L 11/13/2023 7:25 PM CDT [facility] ALKALINE PHOSPHATASE 90 40 - 150 U/L 11/13/2023 7:25 PM CDT [facility] GFR, ESTIMATED >60 >=60 11/13/2023 7:25 PM CDT [facility] Comment: Creatinine Clearance is the preferred criteria for selecting drug dose adjustments in renally impaired patients. ??The GFR is provided as additional pertinent clinical information. GFR is reported in mL/min/1.73 sq m. Calculation based on the Chronic Kidney Disease Epidemiology Collaboration (CKD- EPI) equation refit without adjustment for race. GFR, EST. >60 >=60 024 7:25 PM CDT [facility] GFR, EST. NONAFRICAN >60 >=60 11/13/2023 7:25 PM CDT [facility] Blood Venipuncture / Unknown 11/13/2023 6:40 PM CDT 11/13/2023 7:00 PM CDT us Lul Junior DO CHEMISTRY ORDERABLES Fi nal Result [facility] [address] [place] [address] * (ABNORMAL) Hemoglobin A1C (05/20/2023 10:44 AM TELEVISION PRODUCTION ASSISTANT) HGB-A1C 11.6(H) 4.0 - 6.0 % 05/20/2023 12:30 PM TELEVISION PRODUCTION ASSISTANT [facility] Est Average Glucose 286.2 mg/dL 05/20/2023 12:30 PM TELEVISION PRODUCTION ASSISTANT [facility] Blood Venipuncture / Unknown 05/20/2023 10:44 AM TELEVISION PRODUCTION ASSISTANT 05/20/2023 11:01 AM TELEVISION PRODUCTION ASSISTANT Narrative [facility] - 05/20/2023 12:30 PM TELEVISION PRODUCTION ASSISTANT HEMOGLOBIN A1C: DIABETIC PATIENTS: WELL-CONTROLLED: ?? 6.2 - 7.0 INTERMEDIATE WELL-CONTROLLED: ??7.0 - 9.0 POORLY-CONTROLLED: ??>9.0 us Felicitas Luz SAP SPECIALIST, SOLAR INSTALLATION TECHNICIAN CHEMISTRY ORDERABLES Final Result [facility] [address] [place] [address] from Last 3 Months or Most Recently Relevant to Health Maintenance Insurance MEDICAID [employer] [facility] [place] TPL Care Teams Sand Worker Relationship Specialty Start Date End Date Braydon Pavon PAC [address] [place] [address] PCP - General Physician Hair Stylist 06/22/18 Vikram Mora MD [address] [phone] Consulting Physician Endocrinology 05/21/23 iRddhi Bello APRN, SOLAR INSTALLATION TECHNICIAN [address] [place] [address] Nurse Practitioner Advanced Practice Nurse 02/10/23
--- OUTSIDE RECORDS SUMMARY | 2024-05-08 06:03 | XMS_ITS | Encounter Summary ---
Author Organization [facility] Address [address] [place] [address] Phone Care Team Providers Care Private Branch Exchange Operator Name Role Phone LibradoBraydon Primary Care Provider [phone] Vikram Mora MD Unavailable Riddhi Bello APRN, CNP Unavailable Reason for Referral * Radiology Services (Routine) - Closed Specialty Diagnoses / Procedures Referred By Contac t Referred To Contact Radiology Diagnoses Constipation, unspecified constipation type Procedures XR ABDOMEN KUB FLAT PLATE Riddhi Bello APRN, SYNTHETIC RESIN OPERATOR [address] [place] [address] Phone: tel: fax: Referral ID Status Reason Start Date Expiration Date Visits Re quested Visits Authorized [id number] Closed 01/05/2024 1 1 Reason for Visit * Radiology Services (Routine) - Closed Specialty Diagnoses / Procedures Referred By Contac t Referred To Contact Radiology Diagnoses Constipation, unspecified constipation type Procedures XR ABDOMEN KUB FLAT PLATE Riddhi Bello APRN, SYNTHETIC RESIN OPERATOR [address] [place] [address] Phone: tel: fax: Referral ID Status Reason Start Date Expiration Date Visits Re quested Visits Authorized [id number] Closed 01/05/2024 1 1 Encounter Details Date Type Department Care Team (Late st Contact Info) Description 01/07/2024 8:00 AM CDT - 01/07/2024 11:59 PM CDT Hospital Encounter [facility] Diagnostic Radiology [address] [place] [address] Riddhi Bello APRN, SYNTHETIC RESIN OPERATOR [address] [place] [address] Discharge Disposition: Discharged to home or Selfcare [...] 180 Tablet 3 02/17/2023 Continuous Blood Gluc Button Bradder (Dexcom G7 Button Bradder) Device Check blood glucose before each meal and at bedtime 1 Each 06/01/2023 Enulose 10 GM/15ML Solution Take 30 mL by mouth 4 times daily. 12/31/2023 ergocalciferol (VITAMIN D) 26855 UNIT Capsule Take 50,000 Units by mouth. [...] 25 mg by mouth daily. HYDROcodone-aceta minophen ([place]) 10-325 MG Tablet Take 1 Tablet by [...] Subcutaneous route. 11/07/2020 Insulin Pen Needle (Pen [place]) 32G X 4 MM Misc Inject 3 [...] PM T: ??01/08/2024 12:51 PM Report ID: [id number] Reading Location: ??[id number] Procedure Note Carl Tubbs MD - 01/08/2024 [...] Kyle Tubbs M.D. VIRIDIANA: VIRIDIANA Report ID: [id number] Reading Location: [id number] IMPRESSION: No acute finding. There is a large amount of stool in the right colon. Riddhi Bello APRN, CNP IMG DIAGNOSTIC OR DERABLES Final Result documented in this encounter Visit Diagnoses Diagnosis Constipation, unspecified constipation type documented in this encounter Care Teams Private Branch Exchange Operator Relationship Specialty Start Date End Date Braydon Pavon, [facility] [address] [place] [address] PCP - General Physician Welder Boilermaker 06/22/18 Vikram Mora MD [address] [phone] Consulting Physician Endocrinology 05/21/23 Riddhi Bello APRN, CNP [address] [place] [address] Nurse Practitioner Advanced Practice Nurse 02/10/23 documented as of this encounter
--- OUTSIDE RECORDS SUMMARY | 2024-05-08 06:03 | XMS_ITS | Encounter Summary ---
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 Gender Identity Not on file Sexual Orientation Not on file documented as of this encounter Plan of Treatment Not on file documented as of this encounter Visit Diagnoses Not on filedocumented in this encounter Care Teams Steam Roller Operator Relationship Specialty Start Date End Date Braydon Pavon PAC [address] [place] [address] PCP - General Physician Cruise Counselor 06/22/18 Vikram Mora MD [address] [phone] Consulting Physician Endocrinology 05/21/23 Riddhi Bello APRN, CATERING ATTENDANT [address] [place] [address] Nurse Practitioner Advanced Practice Nurse 02/10/23 documented as of this encounter
--- OUTSIDE RECORDS SUMMARY | 2024-05-08 06:03 | XMS_ITS | Encounter Summary ---
Author Organization [facility] Address [address] 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) Procedures OFFICE/OP NEW LVL 3 LOW MDM/30-44 MIN OFFICE/OP EST LVL 3 LOW MDM/20-29 MIN Riddhi Bello, RADHA, MATERIAL DISPOSITION INSPECTOR [address] [place] [address] Phone: tel: fax: [facility] [address] [facility] [address] [place] [address] Phone: tel: fax: Referral ID Status Reason Start Date Expiration Date V isits Requested Visits Authorized [id number] Authorized 06/09/2023 1 11 Scheduling Instructions Camilo [...] 180 Tablet, Rfl: 3 Continuous Blood Gluc Dip Brazier (Dexcom G7 Dip [place]) Device, Check blood glucose before each meal and at bedtime, Disp: 1 Each, Rfl: 0 Continuous Blood Gluc Sensor (Dexcom G7 Sensor) Misc, Change sensor every 10 days., Disp: 9 Each, Rfl: 1 ergocalciferol (VITAMIN D) 51693 UNIT Capsule, Take 50,000 Units by mouth. 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) Procedures GASTRO PROCEDURE Riddhi Bello APRN, MATERIAL DISPOSITION INSPECTOR [address] [place] [address] Phone: tel: fax: Referral ID Status Reason Start Date Expiration Date Visits Re quested Visits Authorized [id number] Closed 06/09/2023 1 1 ESIS SPECIALIST Reason for Visit * Reason Onset Date Comments Results 06/09/2023 Procedure 06/09/2023 Need Order 06/09/2023 Encounter Details Date Type Department Care Team (Late st Contact Info) Description 06/09/2023 Telephone [facility] [address] [place] [address] Riddhi Bello APRN, MATERIAL DISPOSITION INSPECTOR [address] [place] [address] Results; Procedure; Need Order Social History Tobacco [...] on file Legal Sex Male 10:58 AM PHERESIS SPECIALIST Gender Identity Not on file Sexual Orientation Not on file documented as of this encounter Miscellaneous Notes * Telephone Encounter - Brianna Sorenson RN - 06/09/2023 1:57 PM PHERESIS SPECIALIST Patient is aware and verbalizes understanding. Patient reports that he went to [facility] of TIPs. Noted on 03/04/2024. Patient is asking about getting the MRI at [place] with sedation due to he has a pacemaker. No ordernoted per chart review. Reviewed MRI request with Analisa Bello GENERAL EXPEDITOR and US of TIPS reviewed. Per Analisa Bello GENERAL EXPEDITOR, will await the us TIPS doppler to see what the liver cyst and kidney lesion look like on new US TIPPS then we can make further recommendations. Will place a referral to [facility] hepatology. Called patient, reviewed message above. Patient is aware and verbalizes understanding. External hepatology referral and US doppler of TIPS orders placed. External hepatology and us doppler tips orders and clinical documentation faxed to [facility] fax successful. Referral updated. ESIS SPECIALIST * Telephone Encounter - Brianna Sorenson RN - 06/09/2023 1:54 PM PHERESIS SPECIALIST Images from the original note were not included. ----- Message from Riddhi Bello APRN, CNP sent at 06/01/2023 10:27 AM PHERESIS SPECIALIST ----- No fracture to tailbone, just a contusion. Riddhi Belol APRN, CNP 06/02/2023 11:08 AM PHERESIS SPECIALIST Back to [facility] was normal. No acute changes Message Received: 1 week ago Riddhi Bello APRN, CNP P [place] [facility] Nurse Pool Patient is needing an order for a doppler ultrasound of his TIPs. ESIS SPECIALIST ESIS SPECIALIST documented in this encounter Plan of [...] disease documented in this encounter Care Teams Longwall Shearer Operator Relationship Specialty Start Date End Date Braydon Pavon PAC [address] [place] [address] PCP - General Physician Gambreler 06/22/18 Vikarm Mora MD [address] [phone] Consulting Physician Endocrinology 05/21/23 Riddhi Bello APRN, MATERIAL DISPOSITION INSPECTOR [address] [place] [address] Nurse Practitioner Advanced Practice Nurse 02/10/23 documented as of this encounter
--- OUTSIDE RECORDS SUMMARY | 2024-05-08 06:03 | XMS_ITS | Encounter Summary ---
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 Gender Identity Not on file Sexual Orientation Not on file documented as of this encounter Plan of Treatment Not on file documented as of this encounter Visit Diagnoses Not on filedocumented in this encounter Care Teams Wind Up Worker Relationship Specialty Start Date End Date Braydon Pavon PAC [address] [place] [address] PCP - General Physician Highway Engineering Technician 06/22/18 Vikram Mora MD [address] [phone] Consulting Physician Endocrinology 05/21/23 Riddhi Bello APRN, DRILL PUNCH OPERATOR [address] [place] [address] Nurse Practitioner Advanced Practice Nurse 02/10/23 documented as of this encounter
--- OUTSIDE RECORDS SUMMARY | 2024-05-08 06:03 | XMS_ITS | Encounter Summary ---
Author Organization [facility] Address [address] [place] [address] Phone Care Team Providers Care Parks And Recreation Worker Name Role Phone BebeabBraydon Primary Care Provider [phone] Vikram Mora MD Unavailable Riddhi Bello APRN, DOROTHY Unavailable Reason for Referral * Radiology Services (Routine) - Closed Specialty Diagnoses / Procedures Referred By Jordan casillas Referred To Contact Radiology Diagnoses Pain of upper abdomen Nausea and vomiting, unspecified vomiting type Procedures NM HEPATOBILIARY WITH PHARM Riddhi Bello APRN, IMPOSER [address] [place] [address] Phone: tel: fax: Referral ID Status Reason Start Date Expiration Date Visits Re quested Visits Authorized [id number] Closed 05/29/2023 1 1 Y YEARS TEACHER Reason for Visit * Radiology Services (Routine) - Closed Specialty Diagnoses / Procedures Referred By Contwinnie casillas Referred To Contact Radiology Diagnoses Pain of upper abdomen Nausea and vomiting, unspecified vomiting type Procedures NM HEPATOBILIARY WITH PHARM Riddhi Bello APRN, IMPOSER [address] [place] [address] Phone: tel: fax: Referral ID Status Reason Start Date Expiration Date Visits Re quested Visits Authorized [id number] Closed 05/29/2023 1 1 Encounter Details Date Type Department Care Team (Late st Contact Info) Description 06/11/2023 8:52 AM EARLY YEARS TEACHER - 06/11/2023 11:59 PM EARLY YEARS TEACHER Hospital Encounter [facility] Nuclear Medicine [address] [place] [address] Riddhi Bello APRN, IMPOSER [address] [place] [address] Discharge Disposition: Discharged to home or Selfcare [...] on file Legal Sex Male 10:58 AM EARLY YEARS TEACHER Gender Identity Not on file Sexual Orientation Not on file documented as of this encounter Last Filed Vital Signs Vital Sign Reading Time Taken Comments Blood Pressure - - Pulse - - Temperature - - Respiratory Rate - - Oxygen Saturation - - Inhaled Oxygen Concentration - - Weight 97.1 kg (214 lb) 06/11/2023 8:52 AM EARLY YEARS TEACHER Height 170.2 cm (5' 7 ) 06/11/2023 8:52 AM EARLY YEARS TEACHER Body Mass Index 33.52 06/11/2023 8:52 AM EARLY YEARS TEACHER documented in this encounter Medications at Time of Discharge albuterol 108 (90 Base) MCG/ACT Aerosol Solution every 4 hours as needed. 02/02/2023 ALPRAZolam (XANAX) 1 MG Tablet Take by mouth as needed. carvedilol (COREG) 3.125 MG Tablet Take 1 Tablet by mouth 2 times daily. 180 Tablet 3 02/17/2023 Continuous Blood Gluc Stone Rubber (Dexcom G7 Stone Rubber) Device Check blood glucose before each meal and at bedtime 1 Each 06/01/2023 ergocalciferol (VITAMIN D) 06884 UNIT Capsule Take 50,000 Units by mouth. [...] Subcutaneous route. 11/07/2020 Insulin Pen Needle (Pen [place]) 32G X 4 MM Misc Inject 3 [...] HEPATOBILIARY WITH PHARM Routine 06/11/2023 10:42 AM EARLY YEARS TEACHER Pain of upper abdomen Nausea and vomiting, unspecified vomiting type documented in this encounter Results * NM HEPATOBILIARY WITH PHARM (06/11/2023 10:42 AM EARLY YEARS TEACHER) Anatomical Region Laterality Modality Abdomen N/A Nuclear Medicine 06/11/2023 11:4 5 AM EARLY YEARS TEACHER Impressions 06/11/2023 11:47 AM EARLY YEARS TEACHER IMPRESSION: ?? No scintigraphic evidence of common bile or cystic duct obstruction. Normal contractile response of the gallbladder to fatty meal stimulation. Narrative 06/11/2023 11:47 AM EARLY YEARS TEACHER EXAM DESCRIPTION: ?? NM HEPATOBILIARY WITH PHARM [...] AM T: ??06/11/2023 11:45 AM Report ID: [id number] Reading Location: ??[id number] Procedure Note Rajeev Villalobos MD - 06/11/2023 [...] Rajeev Villalobos M.D. LB: DONNA Report ID: [id number] Reading Location: [id number] IMPRESSION: No scintigraphic evidence of common bile [...] 06/11/23 at 0930 Given 06/11/2023 8:49 AM EARLY YEARS TEACHER 1 Dose documented in this encounter Care Teams Parks And Recreation Worker Relationship Specialty Start Date End Date Braydon Pavon PAC [address] [place] [address] PCP - General Physician Rough Rice Grader 06/22/18 Vikram Mora MD [address] [phone] Consulting Physician Endocrinology 05/21/23 Riddhi Bello APRN, IMPOSER [address] [place] [address] Nurse Practitioner Advanced Practice Nurse 02/10/23 documented as of this encounter
--- OUTSIDE RECORDS SUMMARY | 2024-05-08 06:03 | XMS_ITS | Encounter Summary ---
Author Organization [facility] Address [address] 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 Gender Identity Not on file Sexual Orientation Not on file documented as of this encounter Plan of Treatment Not on file documented as of this encounter Visit Diagnoses Not on filedocumented in this encounter Care Teams Medical Transcription Editor Relationship Specialty Start Date End Date Braydon Pavon PAC [address] [place] [address] PCP - General Physician Product Safety Engineer 06/22/18 Vikram Mora MD [address] [phone] Consulting Physician Endocrinology 05/21/23 Riddhi Bello APRN, FINGER LIFT OPERATOR [address] [place] [address] Nurse Practitioner Advanced Practice Nurse 02/10/23 documented as of this encounter
--- OUTSIDE RECORDS SUMMARY | 2024-05-08 06:03 | XMS_ITS | Encounter Summary ---
Author Organization [facility] Address [address] [place] [address] Phone Care Team Providers Care Online User Experience Strategist Name Role Phone Braydon Pavon VAL Primary Care Provider [phone] Vikram Mclean MD Unavailable Riddhi Bello APRN, CNP Unavailable Reason for Visit * Reason Onset Date Comments Medication Refill 06/08/2023 Encounter Details Date Type Department Care Team (Late st Contact Info) Description 06/08/2023 Refill [facility] - Endocr[facility]ology - [place] [address] [place] [address] Vikram Mclean MD [address] [address] Medication Refill Social History Tobacco [...] on file Legal Sex Male 10:58 AM CORRECTIONAL THERAPY DIRECTOR Gender Identity Not on file Sexual Orientation Not on file documented as of this encounter Miscellaneous Notes * Telephone Encounter - Blake Garrett RN - 06/08/2023 11:31 AM CORRECTIONAL THERAPY DIRECTOR Requested Prescriptions Signed Prescriptions Disp Refills ??? Continuous Blood Gluc Sensor (Dexcom G7 Sensor) Misc 9 Each 1 Sig: Change sensor every 10 days. Authorizing Provider: VIKRAM MCLEAN Ordering User: BLAKE GARRETT Requesting a 90 day supply. ECTIONAL THERAPY DIRECTOR documented in this encounter Plan of Treatment Not on file documented as of this encounter Visit Diagnoses Not on filedocumented in this encounter Care Teams Online User Experience Strategist Relationship Specialty Start Date End Date Braydon Pavon PAC [address] [place] [address] PCP - General Physician Manager Radiation 06/22/18 Vikram Mclean MD [address] [phone] Consulting Physician Endocrinology 05/21/23 Riddhi Bello APRN, DIVING INSTRUCTOR [address] [place] [address] Nurse Practitioner Advanced Practice Nurse 02/10/23 documented as of this encounter
--- OUTSIDE RECORDS SUMMARY | 2024-05-08 06:03 | XMS_ITS | Encounter Summary ---
Author Organization [facility] Address [address] 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 Patient no longer sees dr. Mora. See August office note. documented in this encounter Plan of Treatment Not on file documented as of this encounter Visit Diagnoses Not on filedocumented in this encounter Care Teams Global Marketing Manager Relationship Specialty Start Date End Date Braydon Pavon, [facility] [address] [place] [address] PCP - General Physician Refrigeration Engine Operator 06/22/18 Vikram Mora MD [address] [phone] Consulting Physician Endocrinology 05/21/23 Riddhi Bello APRN, TRANSFORMER REPAIRER [address] [place] [address] Nurse Practitioner Advanced Practice Nurse 02/10/23 documented as of this encounter
--- OUTSIDE RECORDS SUMMARY | 2024-05-08 06:03 | XMS_ITS | Encounter Summary ---
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 Gender Identity Not on file Sexual Orientation Not on file documented as of this encounter Plan of Treatment Not on file documented as of this encounter Visit Diagnoses Not on filedocumented in this encounter Additional Health Concerns Infection Onset Date Last Indicated Resolved Time COVID - 19 11/13/2023 11/13/2023 11/13/2023 8:24 PM CDT documented as of this encounter Care Teams Permit Coordinator Relationship Specialty Start Date End Date Braydon Pavon PAC [address] [place] [address] PCP - General Physician Inseam Leveler 06/22/18 Vikram Mora MD [address] [address] Consulting Physician Endocrinology 05/21/23 Riddhi Bello APRN, AUTO DISMANTLER [address] [place] [address] Nurse Practitioner Advanced Practice Nurse 02/10/23 documented as of this encounter
--- OUTSIDE RECORDS SUMMARY | 2024-05-08 06:03 | XMS_ITS | Encounter Summary ---
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 Gender Identity Not on file Sexual Orientation Not on file documented as of this encounter Plan of Treatment Not on file documented as of this encounter Visit Diagnoses Not on filedocumented in this encounter Care Teams Monorail Crane Operator Relationship Specialty Start Date End Date Braydon Pavon PAC [address] [place] [address] PCP - General Physician Plastic Roller 06/22/18 Vikram Mora MD #[address] [phone] Consulting Physician Endocrinology 05/21/23 Riddhi Bello APRN, INSURANCE CASE MANAGER [address] [place] [address] Nurse Practitioner Advanced Practice Nurse 02/10/23 documented as of this encounter
--- OUTSIDE RECORDS SUMMARY | 2024-05-08 06:03 | XMS_ITS | Encounter Summary ---
Author Organization [employer] Care Team Providers Care Retrieval Specialist Name Role Phone Braydon Pavon Primary Care Provider [phone] Vikram Mora MD Unavailable Riddhi Bello APRN, CCTV TECHNICIAN Unavailable Encounter Details Date Type Department [...] on file Legal Sex Male 10:58 AM PROCUREMENT CONSULTANT Gender Identity Not on file Sexual Orientation Not on file documented as of this encounter Plan of Treatment Not on file documented as of this encounter Visit Diagnoses Not on filedocumented in this encounter Care Teams Retrieval Specialist Relationship Specialty Start Date End Date Braydon Pavon PAC [address] [place] [address] PCP - General Physician Aircraft Machinist 06/22/18 Vikram Mora MD #[address] [phone] Consulting Physician Endocrinology 05/21/23 Riddhi Bello APRN, CCTV TECHNICIAN [address] [place] [address] Nurse Practitioner Advanced Practice Nurse 02/10/23 documented as of this encounter
--- OUTSIDE RECORDS SUMMARY | 2024-05-08 06:03 | XMS_ITS | Encounter Summary ---
Author Organization [facility] Address [address] [place] [address] Phone Care Team Providers Care Boilers And Pressure Vessels Inspector Name Role Phone Braydon Pavon Kunal NEAL Primary Care Provider [phone] Vikram Mora MD Unavailable Riddhi Bello APRN, MEDICAL ANTHROPOLOGIST Unavailable Reason for Referral * Radiology Services (Routine) - Closed Specialty Diagnoses / Procedures Referred By Jordan t Referred To Contact Radiology Diagnoses Constipation, unspecified constipation type Procedures XR ABDOMEN KUB FLAT PLATE Riddhi Bello APRN, MEDICAL ANTHROPOLOGIST [address] [place] [address] Phone: tel: fax: Referral ID Status Reason Start Date Expiration Date Visits Re quested Visits Authorized [id number] Closed 01/05/2024 1 1 Reason for Visit * Reason Onset Date Comments Appointment 01/05/2024 Constipation 01/05/2024 Encounter Details Date Type Department Care Team (Late st Contact Info) Description 01/05/2024 Telephone [facility] - Gastroenterology [address] [place] [phone] Riddhi Bello APRN, MEDICAL ANTHROPOLOGIST [address] [place] [address] Appointment; Constipation Social History Tobacco Use Types Packs/Day Years Used Date Smoking Tobacco: Former Cigarettes Q uit: 2002 Smokeless Tobacco: Never Alcohol Use Standard Drinks/Week Comments Not Currently 0 (1 standard drink = 0.6 oz pur e alcohol) Sexually Active Control Partners Comments Yes Female Sex and Gender Information Value Date Recorded Sex Assigned at Not on file 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 Spoke with Analisa Bello NP, patient can [...] for appt on 01/07/2024 per Analisa Bello METAL TECHNICIAN, referral placed to external hepatology on 06/09/2023. Per chart review, patient had office visit with Dr. Wilson on 12/29/2023. Spoke with patient, states he saw liver specialist, and was advised to follow up with GI provider. Reviewed with Analisa Bello METAL TECHNICIAN. Patient reports that he has been having [...] PM T: ??01/08/2024 12:51 PM Report ID: [id number] Reading Location: ??[id number] Procedure Note Carl Tubbs MD - 01/08/2024 [...] signed by Kyle KEMP: VIRIDIANA Report ID: [id number] Reading Location: [id number] IMPRESSION: No acute finding. There is a large amount of stool in the right colon. Riddhi Bello OPTIMIZATION CONSULTANT, MEDICAL ANTHROPOLOGIST IMG DIAGNOSTIC OR DERABLES Final Result documented in this encounter Visit Diagnoses Diagnosis Constipation, unspecified constipation type- Primary Constipation, unspecified constipation type documented in this encounter Care Teams Boilers And Pressure Vessels Inspector Relationship Specialty Start Date End Date Braydon Pavon PAC [address] [place] [address] PCP - General Physician Managing Consultant Clinical Professor 06/22/18 Vikram Mora MD #[address] [phone] Consulting Physician Endocrinology 05/21/23 Riddhi Bello APRN, MEDICAL ANTHROPOLOGIST [address] [place] [address] Nurse Practitioner Advanced Practice Nurse 02/10/23 documented as of this encounter
--- OUTSIDE RECORDS SUMMARY | 2024-05-08 06:03 | XMS_ITS | Encounter Summary ---
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 Gender Identity Not on file Sexual Orientation Not on file documented as of this encounter Plan of Treatment Not on file documented as of this encounter Visit Diagnoses Not on filedocumented in this encounter Care Teams Leather Staker Relationship Specialty Start Date End Date Braydon Pavon PAC [address] [place] [address] PCP - General Physician National Insurance Officer 06/22/18 Vikram Mora MD #[address] [phone] Consulting Physician Endocrinology 05/21/23 Riddhi Bello APRN, FACEPIECE LINE SUPERVISOR [address] [place] [address] Nurse Practitioner Advanced Practice Nurse 02/10/23 documented as of this encounter
--- OUTSIDE RECORDS SUMMARY | 2024-05-08 06:03 | XMS_ITS | Encounter Summary ---
Author Organization [facility] Address [address] [place] [address] Phone Care Team Providers Care Retail Greeting Card Merchandiser Name Role Phone Braydon Pavon Kunal NEAL Primary Care Provider [phone] Vikram Mora MD Unavailable Riddhi Bello APRN, CNP Unavailable Reason for Visit * Reason Comments High Blood Sugar Generalized Body Aches Encounter Details Date Type Department Care Team (Late st Contact Info) Description 11/13/2023 6:15 PM CDT - 11/13/2023 8:22 PM CDT Emergency [facility] Emergency [address] [place] [address] Lul Junior, DO [address] [place] [address] Glucosuria Discharge Disposition: Discharged to home or [...] on file 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 [facility]!!! GO [facility]UES !!! GO [facility]!!! documented in this encounter Medications at Time of Discharge albuterol 108 (90 Base) MCG/ACT Aerosol Solution every 4 hours as needed. 02/02/2023 ALPRAZolam (XANAX) 1 MG Tablet Take by mouth as needed. carvedilol (COREG) 3.125 MG Tablet Take 1 Tablet by mouth 2 times daily. 180 Tablet 3 02/17/2023 Continuous Blood Gluc Painter Helper (Dexcom G7 Painter Helper) Device Check blood glucose before each meal and at bedtime 1 Each 06/01/2023 ergocalciferol (VITAMIN D) 61042 UNIT Capsule Take 50,000 Units by mouth. [...] Subcutaneous route. 11/07/2020 Insulin Pen Needle (Pen Westbrook) 32G X 4 MM Misc Inject 3 [...] a week. 11/03/2023 Continuous Blood Gluc Sensor (eucl3D G7 Sensor) Misc Change sensor every 10 [...] per ambulatory mode with self as responsible constitution party. D/C'ed with Uriel cath intact. * Katherine [...] and multipletips procedures done at 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 Bedolla, and he is trying to [...] 03/24/2023) 180 Tablet 3 Continuous Blood Gluc Painter Helper (Dexcom G7 Painter Helper) Device Check blood glucose before each meal andat bedtime 1 Each 0 Continuous Blood Gluc Sensor (Dexcom G7 Sensor) Misc Change sensor every 10 days. 9 Each 1 ergocalciferol (VITAMIN D) 67043 UNIT Capsule Take 50,000 Units by mouth. [...] by Subcutaneous route. Insulin Pen Needle (Pen Westbrook) 32G X 4 MM Misc Inject 3 [...] SNARE, DIVERTICULOSIS; Surgeon: Ac Berger MD; Location: [facility]; Service: Gastroenterology COLONOSCOPY W/ BIOPSY 2005 EGD WITH BANDING EGD WITH BANDING TIPS PROCEDURE TIMES 2 UPPER GASTROINTESTINAL ENDOSCOPY N/A 03/24/2023 Procedure: EGD-PORTAL HYPERTENSIVE GASTROPATHY, GRADE ONE ESOPHAGEAL VARCIES; Surgeon: Ac Berger MD; Location: [facility]; Service: Gastroenterology Social History Socioeconomic [...] Making I have recommended close follow up [facility] or [facility] for GI evaluation and further [...] Oral, 2 TIMES DAILY Continuous Blood Gluc Painter Helper (Dexcom G7 Painter Helper) Device Check blood glucose before each meal [...] 1 Each, Subcutaneous Insulin Pen Needle (Pen Westbrook) 32G X 4 MM Misc Inject 3 [...] 03/24/2023) 180 Tablet 3 Continuous Blood Gluc Painter Helper (Dexcom G7 Painter Helper) Device Check blood glucose before each meal andat bedtime 1 Each 0 Continuous Blood Gluc Sensor (Dexcom G7 Sensor) Misc Change sensor every 10 days. 9 Each 1 ergocalciferol (VITAMIN D) 14907 UNIT Capsule Take 50,000 Units by mouth. [...] by Subcutaneous route. Insulin Pen Needle (Pen Westbrook) 32G X 4 MM Misc Inject 3 [...] high yesterday and he was seen at [facility]. Pt states that his sister is an RN and she told pt his eyes were yellow and made him come to ed. 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 Patient Education Table of Contents Fatigue Jaundice, Adult To view videos and all your education online visit, [email or web address] or scan this QR code with your [...] Follow these instructions at home: Medicines Take jnyb-xlq-uqnlorh and prescription medicines only as told by [...] the National Suicide Prevention Lifeline at or 897. This is open 24 hours a day. Text the Crisis Text Line at 911333. Summary If you have fatigue, you feel [...] 2008-02-15 Document Updated: 2022-02-10 Document Reviewed: 2022-02-10 [employer] Patient Education ? 2023 [employer] Jaundice, Adult Jaundice is when the [...] ducts. Follow these instructions at home: Take brcr-[id number]-[id number] and prescription medicines only as told by [...] 2006-04-20 Document Updated: 2021-08-01 Document Reviewed: 2021-08-01 [employer] Patient Education ? 2023 [employer]. documented in this encounter Plan of Treatment [...] Negative Negative, Error 11/13/2023 8:24 PM CDT [facility] FLU B Negative Negative 11/13/2023 8:24 PM CDT [facility] RESP SYNC VIRUS Negative Negative 8:24 PM CDT [facility] SARSCOV2 NOT DETECTED (Reference Range for this test is Not Detected) 11/13/2023 8:24 PM CDT [facility] Comment:This test was perfor med by a Reverse Arts Administrator Or Manager PCR Method. Swab NASOPHARYNGEAL SWAB / Unknown Non-Phlebotomy Collection / Unknown 11/13/2023 7:25 PM CDT 11/13/2023 7:41 PM CDT Narrative [facility] - 11/13/2023 8:24 PM CDT This test has not been FDA cleared or approved; the test has been authorized by FDA under an Emergency Use Authorization (EUA) for use by laboratories certified under the CLIA that meet the requirements to perform moderate, high or waived complexity tests. Authorized Fact Sheets about this test for providers and patients are available at: https://www.fda.gov/medical-devices/kwiycdkpn-pijckdlqdq-uhiuzht-devices/emergen cy-us e-authorizations us Lul Junior DO MICROBIOLOGY - GENERAL ORDERABLES Final Result [facility] [address] [place] [address] * (ABNORMAL) URINALYSIS REFLEX IF INDICATED BY ABNORMAL RESULTS (11/13/2023 6:53 PM CDT) SPECIFIC GRAVITY 1.025 1.003 - 1.030 11/13/2023 7:30 PM CDT [facility] URINE PH 5.0 5.0 - 9.0 11/13/2023 7:30 PM CDT [facility] WBC ESTERASE 25 /ul(A) Negative 11/13/2023 7:30 PM CDT [facility] NITRITE Negative Negative 11/13/2023 7:30 PM CDT [facility] PROTEIN, RANDOM URINE 30 mg/dL(A) Negative 11/13/2023 7:30 PM CDT [facility] URINE GLUCOSE, QUAL 1000 mg/dL(A) Negative 11/13/2023 7:30 PM CDT [facility] URINE KETONES 5 mg/dL(A) Negative 11/13/2023 7:30 PM CDT [facility] UROBILINOGEN 4 mg/dL(A) Normal mg/dL 11/13/2023 7:30 PM CDT [facility] URINE BLOOD Negative Negative kristan/ul 11/13/2023 7:30 PM CDT [facility] URINALYSIS COLOR Dark Yellow 024 7:30 PM CDT [facility] URINALYSIS CLARITY Clear 11/13/2023 7:30 PM CDT [facility] WBC (Urine) 0-5 Negative, 0-5 /hpf 11/13/2023 7:30 PM CDT [facility] URINE RBC'S Negative Negative, 0-2 /hpf 11/13/2023 7:30 PM CDT [facility] EPITHELIAL CELLS Negative /lpf 07/12/20 24 7:30 PM CDT [facility] BACTERIA, URINE Negative Negative /hpf 11/13/2023 7:30 PM CDT [facility] URINE MUCOUS Few 11/13/2023 7:30 PM CDT [facility] Urine URINE SPECIMEN / Unknown Non-Phlebotomy Collection / Unknown 11/13/2023 6:53 PM CDT 11/13/2023 7:07 PM CDT us Lul Junior DO URINE ORDERABLES Final Result [facility] [address] [place] [address] * (ABNORMAL) CBC with Auto Differential (11/13/2023 6:40 PM CDT) WBC 5.07 4.00 - 12.00 10(3)/mcL 11/13/2023 7:13 PM CDT [facility] RBC 5.92(H) 4.40 - 5.80 10(6)/mcL 11/13/2023 7:13 PM CDT [facility] HEMOGLOBIN (HGB) 16.2 13.0 - 16.5 g/dL 11/13/2023 7:13 PM CDT [facility] HEMATOCRIT (HCT) 45.2 38.0 - 50.0 % 11/13/2023 7:13 PM CDT [facility] MCV 76.4(L) 82.0 - 96.0 fL 11/13/2023 7:13 PM CDT [facility] MCH 27.4 26.0 - 32.0 pg 11/13/2023 7:13 PM CDT [facility] MCHC 35.8 31.0 - 36.0 g/dL 11/13/2023 7:13 PM CDT [facility] PLATELET COUNT 94(L) 140 - 440 10(3)/mcL 11/13/2023 7:13 PM CDT [facility] RDW 17.4(H) 11.8 - 15.5 % 11/13/2023 7:13 PM CDT [facility] MPV 10.3 8.0 - 12.6 fL 11/13/2023 7:13 PM CDT [facility] NRBC PER 100 WBC 0 11/13/2023 7:13 PM CDT [facility] Blood Venipuncture / Unknown 11/13/2023 6:40 PM CDT 11/13/2023 7:00 PM CDT Lul Junior DO HEMATOLOGY ORDERABLES F inal Result Performing Organization Address City/[facility]/ZIP Co de Phone Number [facility] [address] [place] [address] * ACETONE QUAL (11/13/2023 6:40 PM CDT) ACETONE Negative Negative 11/13/2023 7:33 PM CDT [facility] Blood Venipuncture / Unknown 11/13/2023 6:40 PM CDT 11/13/2023 7:00 PM CDT Lul Junior DO CHEMISTRY ORDERABLES Fi nal Result Performing Organization Address [facility] Co de Phone Number [facility] [address] [place] [address] * Lipase (11/13/2023 6:40 PM CDT) LIPASE 16 8 - 78 U/L 11/13/2023 7:25 PM CDT [facility] Blood Venipuncture / Unknown 11/13/2023 6:40 PM CDT 11/13/2023 7:00 PM CDT Lul Junior DO CHEMISTRY ORDERABLES Fi nal Result [facility] [address] [place] [address] * (ABNORMAL) CMP (Comprehensive Metabolic Panel) (11/13/2023 6:40 PM CDT) SODIUM 139 136 - 145 mmol/L 11/13/2023 7:25 PM CDT [facility] POTASSIUM 3.7 3.5 - 5.1 mmol/L 11/13/2023 7:25 PM CDT [facility] CHLORIDE 105 98 - 107 mmol/L 11/13/2023 7:25 PM CDT [facility] CO2, VENOUS 24 22 - 30 mmol/L 11/13/2023 7:25 PM CDT [facility] ANION GAP 13.7 <18.0 mmol/L 11/13/2023 7:25 PM CDT [facility] GLUCOSE 188(H) 70 - 99 mg/dL 11/13/2023 7:25 PM CDT [facility] BUN 11 8 - 26 mg/dL 11/13/2023 7:25 PM CDT [facility] CREATININE, BLOOD 0.84 0.70 - 1.30 mg/dL 11/13/2023 7:25 PM CDT [facility] BUN/CREATININE RATIO 13 12 - 20 ratio 11/13/2023 7:25 PM CDT [facility] TOTAL PROTEIN 7.3 6.3 - 8.2 g/dL 11/13/2023 7:25 PM CDT [facility] ALBUMIN 3.9 3.5 - 5.0 g/dL 11/13/2023 7:25 PM CDT [facility] A/G RATIO 1.1 1.0 - 2.2 11/13/2023 7:25 PM CDT [facility] CALCIUM 9.4 8.7 - 10.5 mg/dL 11/13/2023 7:25 PM CDT [facility] T BILI 3.6(H) 0.2 - 1.2 mg/dL 11/13/2023 7:25 PM CDT [facility] SGOT (AST) 27 5 - 34 U/L 11/13/2023 7:25 PM CDT [facility] SGPT (ALT) 17 0 - 55 U/L 11/13/2023 7:25 PM CDT [facility] ALKALINE PHOSPHATASE 90 40 - 150 U/L 11/13/2023 7:25 PM CDT [facility] GFR, ESTIMATED >60 >=60 11/13/2023 7:25 PM CDT [facility] Comment: Creatinine Clearance is the preferred criteria for selecting drug dose adjustments in renally impaired patients. ??The GFR is provided as additional pertinent clinical information. GFR is reported in mL/min/1.73 sq m. Calculation based on the Chronic Kidney Disease Epidemiology Collaboration (CKD- EPI) equation refit without adjustment for race. GFR, EST. >60 >=60 024 7:25 PM CDT [facility] GFR, EST. NONAFRICAN >60 >=60 11/13/2023 7:25 PM CDT [facility] Blood Venipuncture / Unknown 11/13/2023 6:40 PM CDT 11/13/2023 7:00 PM CDT us Lul Junior DO CHEMISTRY ORDERABLES Fi nal Result [facility] [address] [place] [address] documented in this encounter Visit Diagnoses Diagnosis [...] documented as of this encounter Care Teams Retail Greeting Card Merchandiser Relationship Specialty Start Date End Date Braydon Pavon, [facility] [address] [place] [address] PCP - General Physician Transverse Abdominal Muscle Surgeon 06/22/18 Vikram Mora MD #[address] [phone] Consulting Physician Endocrinology 05/21/23 Riddhi Bello APRN, FUR TRIMMER [address] [place] [address] Nurse Practitioner Advanced Practice Nurse 02/10/23 documented as of this encounter
--- OUTSIDE RECORDS SUMMARY | 2024-05-08 06:03 | XMS_ITS | Encounter Summary ---
Author Organization [facility] Address [address] [place] [address] Phone Care Team Providers Care Pole Tester Name Role Phone Braydon Pavon Kunal NEAL Primary Care Provider [phone] Vikram Mora MD Unavailable Riddhi Bello APRN, CNP Unavailable Encounter Details Date Type Department Care Team (Late st Contact Info) Description 07/07/2023 Telephone [facility] - Endocrinology - [place] [address] [place] [address] Vikram Mora MD #[address] [address] Social History Tobacco Use Types Packs/Day Years Used Date Smoking Tobacco: Former Cigarettes Q uit: 2002 Smokeless Tobacco: Never Alcohol Use Standard Drinks/Week Comments Not Currently 0 (1 standard drink = 0.6 oz pur e alcohol) Sexually Active Control Partners Comments Yes Female Sex and Gender Information Value Date Recorded Sex Assigned at Not on file 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 RUMENT WORKER documented in this encounter Plan of Treatment Not on file documented as of this encounter Visit Diagnoses Not on filedocumented in this encounter Care Teams Pole Tester Relationship Specialty Start Date End Date Braydon Pavon PAC [address] [place] [address] PCP - General Physician Childhood Teacher 06/22/18 Vikram Mora MD #[address] [phone] Consulting Physician Endocrinology 05/21/23 Riddhi Bello APRN, HEEL COVER SPLITTER [address] [place] [address] Nurse Practitioner Advanced Practice Nurse 02/10/23 documented as of this encounter
--- OUTSIDE RECORDS SUMMARY | 2024-05-08 06:03 | XMS_ITS | Encounter Summary ---
Author Organization [facility] Address [address] 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 Testing that was ordered at that time included HIDA scan, blood work. Medication changes included none. ER/hospital visits related to this issue since last office visit: None Patient has been seen by [facility] liver clinic twice since his last office [...] He is to have an MRI at [facility] later this month Past GI procedures include [...] SNARE, DIVERTICULOSIS; Surgeon: Ac Berger MD; Location: [facility]; Service: Gastroenterology COLONOSCOPY W/ BIOPSY 2005 EGD WITH BANDING EGD WITH BANDING TIPS PROCEDURE TIMES 2 UPPER GASTROINTESTINAL ENDOSCOPY N/A 03/24/2023 Procedure: EGD-PORTAL HYPERTENSIVE GASTROPATHY, GRADE ONE ESOPHAGEAL VARCIES; Surgeon: Ac Berger MD; Location: [facility]; Service: Gastroenterology Medications: Current Outpatient Medications: albuterol 108 (90 Base) MCG/ACT Aerosol Solution ALPRAZolam (XANAX) 1 MG Tablet carvedilol (COREG) 3.125 MG Tablet Continuous Blood Gluc Public Relations Specialist (Dexcom G7 Public Relations Specialist) Device Continuous Blood Gluc Sensor (Dexcom G7 Sensor) Misc Enulose 10 GM/15ML Solution ergocalciferol (VITAMIN D) 10406 UNIT Capsule famotidine (PEPCID) 20 MG Tablet famotidine (PEPCID) 20 MG Tablet Glucose Blood Strip HumaLOG KwikPen 100 UNIT/ML Solution Pen-injector hydroCHLOROthiazide 25 MG Tablet HYDROcodone-acetaminophen (Moody) 10-325 MG Tablet HYDROcodone-acetaminophen (NORCO) 7.5-325 MG Tablet Insulin Pen Needle (B-D ULTRAFINE III SHORT PEN) 31G X 8 MM Misc Insulin Pen Needle (B-D ULTRAFINE III SHORT PEN) 31G X 8 MM Misc Insulin Pen Needle (Pen [place]ift) 32G X 4 MM Misc Lantus SoloStar [...] APRN, CNP This note was transcribed using Semmx speech recognition software. As a result, there may be unintended grammar and spelling errors. 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
--- OUTSIDE RECORDS SUMMARY | 2024-05-08 06:03 | XMS_ITS | Encounter Summary ---
Author Organization [facility] Address [address] 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
--- OUTSIDE RECORDS SUMMARY | 2024-05-08 06:04 | XMS_ITS | Encounter Summary ---
Author Organization [facility] Address [address] [place] [address] Phone Care Team Providers Care Laboratory Miller Name Role Phone Janeth Pavon Kunal NEAL Primary Care Provider [phone] Riddhi Bello APRN, GUIDANCE DIRECTOR Unavailable Reason for Visit * Auth/Cert (Routine) Specialty Diagnoses / Procedures Referred By Jordan casillas Referred To Contact Diagnoses ESOPHAGEAL VARICES, HISTORY OF COLON POLYPS Procedures EGD COLONOSCOPY Referral ID Status Reason Start Date Expiration Date Visits Re quested Visits Authorized [id number] 1 1 Encounter Details Date Type Department Care Team (Late st Contact Info) Description 03/24/2023 7:30 AM STORE LEAD - 03/24/2023 8:00 AM STORE LEAD [facility] Periop [address] [place] [address] Ac Berger MD [address] [address] EGD-PORTAL HYPERTENSIVE GASTROPATHY, GRADE ONE ESOPHAGEAL VARCIES Surgery Details Date/Time Status Location OR Service Patient Class Case Class Case Type Trauma Case? 03/24/2023 7:30 AM Posted [facility] [address] [facility] GI 01 Gastroenterology [facility] Ambulatory Surgery Electiv e/Sched uled Panel 1 [...] on file Legal Sex Male 10:58 AM STORE LEAD Gender Identity Not on file Sexual Orientation [...] Comments Blood Pressure 134/72 03/24/2023 6:48 AM STORE LEAD Pulse 94 03/24/2023 6:48 AM STORE LEAD Temperature 36 ??C (96.8 ??F) 03/24/2023 6:48 AM STORE LEAD Respiratory Rate 9 03/24/2023 6:48 AM STORE LEAD Oxygen Saturation 98% 03/24/2023 6:48 AM STORE LEAD Inhaled Oxygen Concentration - - Weight 97.5 kg (215 lb) 02/27/2023 3:04 PM CDT Height 172.7 cm (5' 8 ) 02/27/2023 3:04 PM CDT Body Mass Index 32.69 02/27/2023 3:04 PM CDT documented in this encounter Discharge Instructions * Discharge Instructions* Felicitas Florentino RN - 03/24/2023 8:11 AM STORE LEAD You had a colonoscopy today. Dr. Berger [...] WORK, UNLESS INSTRUCTED OTHERWISE. Call doctor's office ([phone]) or go to Emergency room for: Difficulty Breathing, Headache Or Visual Disturbances Persistent Dizziness Or Light-Headedness Persistent Nausea and Vomiting Temperature greater then 100.0 Significant abdominal pain, chest pain, or bleeding. Here at [facility] we strive to provide excellent care [...] envelope is provided. Thank you for choosing [facility]. E LEAD E LEAD documented in this encounter Medications at Time of Discharge albuterol 108 (90 Base) MCG/ACT Aerosol Solution every 4 hours as needed. 02/02/2023 ALPRAZolam (XANAX) 1 MG Tablet Take by mouth as needed. carvedilol (COREG) 3.125 MG Tablet Take 1 Tablet by mouth 2 times daily. 180 Tablet 3 02/17/2023 ergocalciferol (VITAMIN D) 43275 UNIT Capsule Take 50,000 Units by mouth. [...] Subcutaneous route. 11/07/2020 Insulin Pen Needle (Pen [place]) 32G X 4 MM Misc Inject 3 [...] procedure. Ac Berger MD 03/24/2023 7:34 AM STORE LEAD E LEAD documented in this encounter OR Notes * [...] Surgeon: Ac Berger MD, 03/24/2023, 8:07 AM STORE LEAD Primary Care Physician: JANETH PAVON, PAC E LEAD * OR Surgeon - Ac Berger MD [...] Surgeon: Ac Berger MD, 03/24/2023, 7:41 AM STORE LEAD Primary Care Physician: JANETH PAVON, PAC E LEAD documented in this encounter Miscellaneous Notes * [...] Transition of Care Outcome: Ongoing (see interventions/notes) E LEAD * Interdisciplinary - Lyric Dudley RN - 02/27/2023 3:05 PM CDT [facility] GI TEACHING Patient Name: Camilo Curry : 1970 [facility]#: [id number] Person Educated Patient Ready to Learn Yes [...] for your procedure as instructed by the [facility] GI Lab. Go to Registration the [...] be allowed to accompany you to the [facility]. No children under the age of 16 will be allowed in the [facility] unless they are the patient. If [...] to Teaching: Verbalizes Understanding Patient assessed for humanities and languages professor during the preop interview and appropriate interventions taken if applicable. documented in this encounter Plan of Treatment Not on file documented as of this encounter Procedures Procedure Name Priority Date/Time Associated Diagnosis Comments CBC WITH AUTO DIFFERENTIAL STAT 03/24/2023 9:01 AM STORE LEAD PROTIME (PT) (PROTHROMBIN TIME) STAT 03/24/2023 9:01 AM STORE LEAD CMP (COMPREHENSIVE METABOLIC PANEL) STAT 03/24/2023 9:01 AM STORE LEAD COMPLETE BLOOD COUNT (CBC) WITH DIFF STAT 03/24/2023 9:01 AM STORE LEAD PATHOLOGY SURGICAL Routine 03/24/2023 8: 03 AM STORE LEAD COLONOSCOPY 03/24/2023 7:31 AM STORE LEAD EGD-PORTAL HYPERTENSIVE GASTROPATHY, GRADE ONE ESOPHAGEAL VARCIESCOLONOSCOPY-C ECAL POLYP REMOVED BY HOT SNARE, DIVERTICULOSIS Special Needs DM, DOUBLE PREP - Dx varices/polyps EGD 03/24/2023 7:31 AM STORE LEAD EGD-PORTAL HYPERTENSIVE GASTROPATHY, GRADE ONE ESOPHAGEAL VARCIESCOLONOSCOPY-C ECAL POLYP REMOVED BY HOT SNARE, DIVERTICULOSIS Special Needs DM, DOUBLE PREP - Dx varices/polyps POCT GLUCOSE Routine 03/24/2023 6:41 AM STORE LEAD GI LAB IMAGING - EGD Routine 03/24/2023 6:23 AM STORE LEAD GI IMAGING - COLONOSCOPY Routine 03/24/2023 6:23 AM STORE LEAD documented in this encounter Results * (ABNORMAL) CBC with Auto Differential (03/24/2023 9:01 AM STORE LEAD) WBC 3.75(L) 4.00 - 12.00 10(3)/mcL 03/24/2023 9:33 AM STORE LEAD [facility] RBC 5.77 4.40 - 5.80 10(6)/mcL 03/24/2023 9:33 AM STORE LEAD [facility] HEMOGLOBIN (HGB) 13.2 13.0 - 16.5 g/dL 03/24/2023 9:33 AM STORE LEAD [facility] HEMATOCRIT (HCT) 42.5 38.0 - 50.0 % 03/24/2023 9:33 AM STORE LEAD [facility] MCV 73.7(L) 82.0 - 96.0 fL 03/24/2023 9:33 AM STORE LEAD [facility] MCH 22.9(L) 26.0 - 32.0 pg 03/24/2023 9:33 AM STORE LEAD [facility] MCHC 31.1 31.0 - 36.0 g/dL 03/24/2023 9:33 AM STORE LEAD [facility] PLATELET COUNT 90(L) 140 - 440 10(3)/mcL 03/24/2023 9:33 AM STORE LEAD [facility] RDW 17.3(H) 11.8 - 15.5 % 03/24/2023 9:33 AM STORE LEAD [facility] MPV 10.4 8.0 - 12.6 fL 03/24/2023 9:33 AM STORE LEAD [facility] NEUTROPHILS 70.2(H) 40.0 - 68.0 % 03/24/2023 9:33 AM STORE LEAD [facility] LYMPHOCYTES 16.8(L) 19.0 - 49.0 % 03/24/2023 9:33 AM STORE LEAD [facility] MONOCYTES 8.0 3.0 - 13.0 % 03/24/2023 9:33 AM STORE LEAD [facility] EOSINOPHILS 3.7 0.0 - 8.0 % 03/24/2023 9:33 AM STORE LEAD [facility] BASOPHILS 1.3(H) 0.0 - 1.0 % 03/24/2023 9:33 AM [facility] ABSOLUTE NEUTROPHILS 2.63 1.40 - 5.30 10(3)/[facility] 03/24/2023 9:33 AM STORE LEAD [facility] ABSOLUTE LYMPHOCYTES 0.63(L) 0.90 - 3.30 10(3)/[facility] 03/24/2023 9:33 AM [facility] ABSOLUTE MONOCYTES 0.30 0.10 - 0.90 10(3)/[facility] 03/24/2023 9:33 AM [facility] ABSOLUTE EOSINOPHIL 0.14 0.00 - 0.50 10(3)/[facility] 03/24/2023 9:33 AM [facility] ABSOLUTE BASOPHILS 0.05 0.00 - 0.10 10(3)/[facility] 03/24/2023 9:33 AM [facility] NRBC PER 100 WBC 0 03/24/20 9:33 AM [facility] RESULTS ARE CONSISTENT WITH PERIPHERAL SMEAR REVIEW Yes 03/24/2023 9:33 AM [facility] Blood Venipuncture / Unknown 03/24/2023 9:01 AM STORE LEAD 03/24/2023 9:05 AM STORE LEAD Narrative [facility] - 03/24/2023 9:33 AM STORE LEAD microcytes us Ac Berger MD HEMATOLOGY ORDERABLES Final Resu lt [facility] #1 [place] [address] * (ABNORMAL) PROTIME (PT) (PROTHROMBIN TIME) (03/24/2023 9:01 AM STORE LEAD) PROTIME-PATIENT 15.4(H) 11.6 - 14.8 sec 03/24/2023 9:20 AM STORE LEAD [facility] INR 1.2 0.9 - 1.2 03/24/2023 9:20 AM [facility] Comment: Therapeutic Ranges INR = 2.0-3.0: Venous thromb, atrial fib, pul embolism, tissue heart valve, ami. INR = 2.5-3.5: Mechanical heart valve Critical value for INR is >/= 4.5 Blood Venipuncture / Unknown 03/24/2023 9:01 AM STORE LEAD 03/24/2023 9:05 AM STORE LEAD us Ac Berger MD HEMATOLOGY ORDERABLES Final Resu lt [facility] #[address] [place] [address] * (ABNORMAL) CMP (Comprehensive Metabolic Panel) (03/24/2023 9:01 AM STORE LEAD) [facility] SODIUM 137 136 - 145 mmol/L 03/24/2023 9:29 AM [facility] POTASSIUM 4.1 3.5 - 5.1 mmol/L 03/24/2023 9:29 AM STORE LEAD [facility] CHLORIDE 104 98 - 107 mmol/L [...] GFR, EST. >60 >=60 023 9:29 AM [facility] GFR, EST. NONAFRICAN >60 >=60 03/24/2023 9:29 AM [facility] Blood Venipuncture / Unknown 03/24/2023 9:01 AM STORE LEAD 03/24/2023 9:05 AM STORE LEAD us Ac Berger MD CHEMISTRY ORDERABLES Final Resul t [facility] #[address] [facility] [place] [address] * Pathology Surgical (03/24/2023 8:03 AM STORE LEAD) Case Report Surgical Pathology Report ? Case: [id number] ? Authorizing Provider: ??Ac Berger MD ?Collected: ? 03/24/2023 08:03 AM ? Ordering Location: ? [facility] ? Received: ?03/24/2023 09:32 AM ? [facility] ? Lab Main ? Pathologist: ? [...] COLON STRUCTURE / Unknown 03/24/2023 8:03 AM STORE LEAD 03/24/2023 9:32 AM STORE LEAD us Ac Berger MD PATHOLOGY/CYTOLOGY ORDERABLES Fi nal Result [facility] [address] [place] [address] * (ABNORMAL) POCT Glucose (03/24/2023 6:41 AM STORE LEAD) GLUCOSE,BEDSID E POCT 254(H) 70 - 99 mg/dL 03/24/2023 6:47 AM STORE LEAD [facility] Comment:Patient RN Performed Blood 03/24/2023 6:41 AM STORE LEAD 03/24/2023 6:47 AM STORE LEAD us None Provider POINT OF CARE TESTING Final Resu lt [facility] #[address] [place] [address] * GI LAB IMAGING - EGD (03/24/2023 6:23 AM STORE LEAD) us Ac PATEL DIAGNOSTIC ORDERABLES Final Result * GI IMAGING - COLONOSCOPY (03/24/2023 6:23 AM STORE LEAD) us Ac PATEL DIAGNOSTIC ORDERABLES Final Result [...] PRE-OP (SURGERY) New Bag 03/24/2023 7:28 AM STORE LEAD 20 mL/hr 20 mL/hr ondansetron (ZOFRAN) injection 4 mg 4 mg, Intravenous, ONCE PRN, 1 dose, Starting on Thu03/24/23 at 0623, Until Thu03/24/23 at 1108, Nausea - 1st line, PRE-OP (SURGERY) documented in this encounter Active and Recently Administered Medications Times are shown in STORE LEAD. Continuous Medication Order 03/22/2023 03/23/2023 03/24/2023 lactated ringers infusion at 20 mL/hr, Intravenous, CONTINUOUS, Starting on Thu03/24/23 at 0700, Until Thu03/24/23 at 1108, PRE-OP (SURGERY) 0728 (New Bag - Prov ider: Karina Moreno, RN)0734 (Continued by Anesthesia - Provider: Raffaele Chance APRN, BRAIDING MACHINE OPERATOR)0836 (Stopped - Provider: Felicitas Florentino, BETHANY) PRN Medication Order 03/22/2023 03/23/2023 03/24/2023 ondansetron (ZOFRAN) injection 4 mg 4 mg, Intravenous, ONCE PRN, 1 dose, Starting on Thu03/24/23 at 0623, Until Thu03/24/23 at 1108, Nausea - 1st line, PRE-OP (SURGERY) documented in this encounter Care Teams Laboratory Miller Relationship Specialty Start Date End Date Janeth Pavon, [facility] [address] [place] [address] PCP - General Physician Optical Lab Technician 06/22/18 Riddhi Bello APRN, GUIDANCE DIRECTOR [address] [place] [address] Nurse Practitioner Advanced Practice Nurse 02/10/23 documented as of this encounter
--- OUTSIDE RECORDS SUMMARY | 2024-05-08 06:04 | XMS_ITS | Encounter Summary ---
Author Organization [facility] Address [address] 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) Procedures US ABDOMEN LIMITED LEVEL 3 THREE ORGAN Riddhi Bello APRN, CNP [address] [place] [address] Phone: tel: fax: Referral ID Status Reason Start Date Expiration Date Visits Re quested Visits Authorized [id number] Closed 02/10/2023 1 1 Reason for Visit * Radiology Services (Routine) - Closed Specialty Diagnoses / Procedures Referred By Contac t Referred To Contact Radiology Diagnoses 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) Procedures US ABDOMEN LIMITED LEVEL 3 THREE ORGAN Riddhi Bello APRN, CNP [address] [place] [address] Phone: tel: fax: Referral ID Status Reason Start Date Expiration Date Visits Re quested Visits Authorized [id number] Closed 02/10/2023 1 1 Encounter Details Date Type Department Care Team (Late st Contact Info) Description 02/26/2023 8:21 AM CDT - 02/26/2023 11:59 PM CDT Hospital Encounter [facility] Ultrasound 1 [facility] [place] [address] Riddhi Bello APRN, SENIOR PEOPLESOFT DEVELOPER [address] [place] [address] Discharge Disposition: Discharged to home or Selfcare [...] on file 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 [...] Subcutaneous route. 11/07/2020 Insulin Pen Needle (Pen [place]) 32G X 4 MM Misc Inject 3 [...] Carl Tubbs MD on 03/09/2023 8:09 AM MOLD MAKER APPRENTICE ADDENDUM REPORT: ADDENDUM: This addendum report supersedes [...] thickening or pericholecystic fluid. No positive sonographic Blackshear sign reported. ?? BILIARY: ?? There is [...] AM T: ??03/01/2023 5:46 AM Report ID: [id number] Reading Location: ??[id number] THIS IS AN ELECTRONICALLY VERIFIED FINAL REPORT 03/09/2023 8:07 AM ??Addendum Electronically signed by Kyle KEMP: VIRIDIANA D: ??03/04/2023 4:00 PM T: ??03/04/2023 4:00 PM Report ID: [id number] Reading Location: ??[id number] Impressions 03/01/2023 5:49 AM CDT IMPRESSION: Coarse [...] thickening or pericholecystic fluid. No positive sonographic Blackshear sign reported. ?? BILIARY: ?? There is [...] AM T: ??03/01/2023 5:46 AM Report ID: [id number] Reading Location: ??[id number] Procedure Note Carl Tubbs MD - 03/01/2023 [...] thickening or pericholecystic fluid. No positive sonographic Blackshear sign reported. BILIARY: There is no intrahepatic [...] Kyle Tubbs M.D. VIRIDIANA: VIRIDIANA Report ID: [id number] Reading Location: [place] [address] IMPRESSION: Coarse ultrasound architecture in the liver, perhaps due to cirrhosis. No definite mass was seen. Right pelvic kidney. 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
--- OUTSIDE RECORDS SUMMARY | 2024-05-08 06:04 | XMS_ITS | Encounter Summary ---
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
--- OUTSIDE RECORDS SUMMARY | 2024-05-08 06:04 | XMS_ITS | Encounter Summary ---
Author Organization [facility] Address [address] 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) Procedures GASTRO PROCEDURE Riddhi Bello APRN, CNP [address] [place] [address] Phone: tel: fax: Referral ID Status Reason Start Date Expiration Date Visits Re quested Visits Authorized [id number] Closed 02/12/2023 1 1 * Other (Routine) - Closed Specialty Diagnoses / Procedures Referred By Jordan casillas Referred To Contact Gastroenterology Diagnoses History of colon polyps Procedures GASTRO PROCEDURE Riddhi Bello APRN, CNP [address] [place] [address] Phone: tel: fax: Referral ID Status Reason Start Date Expiration Date Visits Re quested Visits Authorized [id number] Closed 02/10/2023 1 1 * Radiology Services (Routine) - Closed Specialty Diagnoses / Procedures Referred By Jordan t Referred To Contact Radiology Diagnoses 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) Procedures US ABDOMEN LIMITED LEVEL 3 THREE ORGAN Riddhi Bello APRN, CNP [address] [place] [address] Phone: tel: fax: Referral ID Status Reason Start Date Expiration Date Visits Re quested Visits Authorized [id number] Closed 02/10/2023 1 1 Reason for Visit * Reason Comments New Patient * Consult, Test & Initiate Treatment (Less Than 4 Weeks) - Closed Specialty Diagnoses / Procedures Referred By Contact Referred To Contact Gastroenterology Diagnoses Acute and subacute hepatic failure without coma Braydon Pavon, [facility] [address] [place] [address] Phone: tel: fax: [facility] Medical [facility] - Gastroenterology - [place] [address] [place] [address] Phone: tel: fax: Referral ID Status Reason Start Date Expiration Date Visits Re quested Visits Authorized [id number] Closed 1 1 Encounter Details Date Type Department Care Team (Latest Contact Info) Description 02/10/2023 1:00 PM CDT Office Visit [facility] - Gastroenterology - [place] [address] [place] [address] Riddhi Bello APRN, CNP [address] [place] [address] 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 [...] on file 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 - Insulin Pen Needle (B-D ULTRAFINE III SHORT PEN) 31G X 8 MM Misc - Insulin Pen Needle (B-D ULTRAFINE III SHORT PEN) 31G X 8 MM Misc; 1 Each by Subcutaneous route. - Insulin Pen Needle (Pen [place]) 32G X 4 MM Misc; Inject 3 [...] be ordered and he will go to [facility] to have this done. He is also willing to see the [facility] liver clinic so we will put [...] cirrhosis. He has previously beinh followed at [facility] liver clinic and was last seen there in 2020. He had to stop seeing them because they did not take his insurance anymore. He then tried to establish with a GI specialist in [facility] but reports that he had a [...] ALPRAZolam (XANAX PO) ??? ergocalciferol (VITAMIN D) 78233 UNIT Capsule ??? Glucose Blood Strip ??? HumaLOG KwikPen 100 UNIT/ML Solution Pen-injector ??? hydroCHLOROthiazide 25 MG Tablet ??? Insulin Pen Needle (B-D ULTRAFINE III SHORT PEN) 31G X 8 MM Misc ??? Insulin Pen Needle (B-D ULTRAFINE III SHORT PEN) 31G X 8 MM Misc ??? Insulin Pen Needle (Pen [place]) 32G X 4 MM Misc ??? Insulin [...] EGD and colonoscopy reports Riddhi Bello APRN, KNIFE GRINDER This note was transcribed using [employer] speech recognition software. As a result, there [...] Carl Tubbs MD on 03/09/2023 8:09 AM TECHNICAL CLERK ADDENDUM REPORT: ADDENDUM: This addendum report supersedes [...] thickening or pericholecystic fluid. No positive sonographic Shawnee sign reported. ?? BILIARY: ?? There is [...] AM T: ??03/01/2023 5:46 AM Report ID: [id number] Reading Location: ??[id number] THIS IS AN ELECTRONICALLY VERIFIED FINAL REPORT 03/09/2023 8:07 AM ??Addendum Electronically signed by Kyle KEMP: VIRIDIANA D: ??03/04/2023 4:00 PM T: ??03/04/2023 4:00 PM Report ID: [id number] Reading Location: ??[id number] Impressions 03/01/2023 5:49 AM CDT IMPRESSION: Coarse [...] thickening or pericholecystic fluid. No positive sonographic Shawnee sign reported. ?? BILIARY: ?? There is [...] AM T: ??03/01/2023 5:46 AM Report ID: [id number] Reading Location: ??[id number] Procedure Note Carl Tubbs MD - 03/01/2023 [...] thickening or pericholecystic fluid. No positive sonographic Shawnee sign reported. BILIARY: There is no intrahepatic [...] Kyle Tubbs M.D. VIRIDIANA: VIRIDIANA Report ID: [id number] Reading Location: [id number] IMPRESSION: Coarse ultrasound architecture in the liver, perhaps due to cirrhosis. No definite mass was seen. Right pelvic kidney. 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)- Primary Other chronic nonalcoholic liver disease History of colon polyps Personal history of colonic polyps Constipation, unspecified constipation type S/P TIPS (transjugular intrahepatic portosystemic shunt) Other postprocedural status Oral bleeding Hemorrhage, unspecified 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
--- OUTSIDE RECORDS SUMMARY | 2024-05-08 06:04 | XMS_ITS | Encounter Summary ---
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 Gender Identity Not on file Sexual Orientation Not on file documented as of this encounter Plan of Treatment Not on file documented as of this encounter Visit Diagnoses Not on filedocumented in this encounter Care Teams Integration Assistant Relationship Specialty Start Date End Date Braydon Pavon PAC [address] [place] [address] PCP - General Physician Aluminum Boat Assembly Supervisor 06/22/18 Vikram Mora MD [address] [address] Consulting Physician Endocrinology 05/21/23 Riddhi Bello APRN, CHILD CARE LEAD TEACHER [address] [place] [address] Nurse Practitioner Advanced Practice Nurse 02/10/23 documented as of this encounter
--- OUTSIDE RECORDS SUMMARY | 2024-05-08 06:04 | XMS_ITS | Encounter Summary ---
Author Organization [facility] Address [address] [place] [address] Phone Care Team Providers Care Zinc Plating Machine Operator Name Role Phone Braydon Pavon PAC Primary Care Provider [phone] Riddhi Bello APRN, COMMUNICATIONS AGENT Unavailable Reason for Visit * Auth/Cert (Routine) Specialty Diagnoses / Procedures Referred By Jordan casillas Referred To Contact Diagnoses ESOPHAGEAL VARICES, HISTORY OF COLON POLYPS Procedures EGD COLONOSCOPY Referral ID Status Reason Start Date Expiration Date Visits Re quested Visits Authorized [id number] 1 1 Encounter Details Date Type Department Care Team (Late st Contact Info) Description 03/24/2023 7:34 AM HVAC PROJECT MANAGER Anesthesia Event [facility] Periop [address] [place] [address] Raffaele Chance APRN, HOP WORKER [address] [place] [address] Anesthesia Record Procedure Summary Procedure Name Responsible Anesthesiologist Anesthesia Start Time Anesthesia Stop Time EGD-PORTAL HYPERTENSIVE GASTROPATHY, GRADE ONE ESOPHAGEAL VARCIES Raffaele Chance APRN, HOP WORKER 03/24/23 0734 03/24/23 0807 Events Date Time [...] on file Legal Sex Male 10:58 AM HVAC PROJECT MANAGER Gender Identity Not on file Sexual Orientation Not on file COVID-19 Exposure Response Date Recorded In the last 10 days, have yo u been in contact with someone who was confirmed or suspected to have Coronavirus/COVID-19? No / Unsure 02/26/2023 8:15 AM CDT documented as of this encounter OR Notes * Anesthesia Postprocedure Evaluation - Raffaele Chance APRN, HOP WORKER - 03/24/2023 8:14 AM CST Patient: Camilo Curry Procedure Summary Date: 03/24/23 Room / Location: [facility] / [facility] MAIN Anesthesia Start: 733 Anesthesia [...] Airway patency: patent Nausea and Vomiting: none PROJECT MANAGER * Anesthesia Preprocedure Evaluation - Raffaele Chance APRN, CRNA - 03/24/2023 7:17 AM CST Anesthesia Evaluation Procedure Information Date/Time: 03/24/23729 Procedures: EGD COLONOSCOPY Location: [facility] / [facility] MAIN Surgeons: Ac Berger MD [...] 180 Tablet, Rfl: 3 ergocalciferol (VITAMIN D) 82802 UNIT Capsule, Take 50,000 Units by mouth. [...] Disp: , Rfl: Insulin Pen Needle (Pen [place]) 32G X 4 MM Misc, Inject 3 [...] risks discussed with Patient. Plan discussed with HOP WORKER and surgeon. PROJECT MANAGER documented in this encounter Plan of [...] at 0808 Rate Change 03/24/2023 7:56 AM HVAC PROJECT MANAGER 140 mcg/kg/min 81.9 mL/hr New Bag 03/24/2023 7:36 AM HVAC PROJECT MANAGER 150 mcg/kg/min 87.75 mL/ hr documented in this encounter Care Teams Zinc Plating Machine Operator Relationship Specialty Start Date End Date Braydon Pavon PAC [address] [place] [address] PCP - General Physician Hospice Care Sales Consultant 06/22/18 Riddhi Bello APRN, COMMUNICATIONS AGENT [address] [place] [address] Nurse Practitioner Advanced Practice Nurse 02/10/23 documented as of this encounter
--- OUTSIDE RECORDS SUMMARY | 2024-05-08 06:04 | XMS_ITS | Encounter Summary ---
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
--- OUTSIDE RECORDS SUMMARY | 2024-05-08 06:04 | XMS_ITS | Encounter Summary ---
Author Organization [facility] Address [address] [place] [address] Phone Care Team Providers Care Broker Agricultural Produce Name Role Phone Librado Braydon Kunal NEAL Primary Care Provider [phone] Riddhi Bello APRN, ADMINISTRATIVE SERVICES OFFICER Unavailable Reason for Referral * Medical Care (Less Than 1 Week) - Closed Specialty Diagnoses / Procedures Referred By Contwinnie t Referred To Contact Nephrology Diagnoses Renal lesion Procedures OFFICE/OP NEW LVL 3 LOW MDM/30-44 MIN OFFICE/OP EST LVL 3 LOW MDM/20-29 MIN Riddhi Bello APRN, ADMINISTRATIVE SERVICES OFFICER [address] [place] [address] Phone: tel: fax: EXTERNAL LOCATION NOT ON FILE Referral ID Status Reason Start Date Expiration Date Visits Re quested Visits Authorized [id number] Closed 03/23/2023 1 11 Scheduling Instructions Camilo is being referred to nephrology or other specialist in patient's insurance network for kidney lesion on recent ultrasound doppler of TIPPS at [facility]. See below for Camilo's current medications, [...] 180 Tablet, Rfl: 3 ergocalciferol (VITAMIN D) 25908 UNIT Capsule, Take 50,000 Units by mouth. [...] Disp: , Rfl: Insulin Pen Needle (Pen [place]) 32G X 4 MM Misc, Inject 3 [...] Gallstones Biliary colic Hepatic encephalopathy (HCC) Hypertension ETL DEVELOPER Encounter Details Date Type Department Care Team (Late st Contact Info) Description 03/17/2023 Telephone [facility] - Gastroenterology - [place] [address] [place] [address] Riddhi Bello APRN, DOROTHY [address] [place] [address] Social History Tobacco Use Types Packs/Day Years Used Date Smoking Tobacco: Former Cigarettes Q uit: 2002 Smokeless Tobacco: Never Alcohol Use Standard Drinks/Week Comments Not Currently 0 (1 standard drink = 0.6 oz pur e alcohol) Sexually Active Control Partners Comments Yes Female Sex and Gender Information Value Date Recorded Sex Assigned at Not on file Legal Sex Male 10:58 AM SSIS ETL DEVELOPER Gender Identity Not on file Sexual Orientation [...] on: 03/23/2023 03:32 PM Modules accepted: Orders ETL DEVELOPER * Telephone Encounter - Blake Sorenson RN - 03/23/2023 3:21 PM SSIS ETL DEVELOPER Reviewed message with patient. Patient states that it was every 3 months they checked the TIPPS doppler. Recall placed. Patient is agreeable to seeing hospice music therapy. He would like to be seen at [place] or [facility] if [place] doesn't take his insurance. External nephrology referral placed. ETL DEVELOPER ETL DEVELOPER * Addendum Note - Blake Sorenson RN - 03/23/2023 3:10 PM CSTAddended by: BLAKE SORENSON on: 03/23/2023 03:10 PM Modules accepted: Orders ETL DEVELOPER * Telephone Encounter - Blake Sorenson RN - 03/23/2023 2:51 PM SSIS ETL DEVELOPER Patient is aware and verbalizes understanding. Patient states that he would have to be asleep for the MRI. He is allergic to iodinated contrast. He states if MRI with sedation is not able to be approved or done he would consider doing MRI with po sedation. Attempted to place MRI liver. Reviewed US TIPS ultrasound with Analisa Bello PARTNER MARKETING INTERN, patient can be referred to nephrology for kidney lesion on U/S Tips. Per Analisa Bello PARTNER MARKETING INTERN, ok to hold on MRI with liver protocol till patient is evaluated for kidney lesion. Per Riddhi Dee PARTNER MARKETING INTERN, verify if patient was getting TIPPS checked every 3 months. Will ask patient how often he gets TIPPS dopplers and will place recall. Called patient. Left message for patient to call back. ETL DEVELOPER ETL DEVELOPER ETL DEVELOPER * Telephone Encounter - Riddhi Bello APRN, CNP - 03/18/2023 12:19 PM CST Ultrasound report reviewed. We will need to watch the Tips closely. It is patent at this time but the velocity of the flow is slightly decreased It would be recommended to have the liver protocol MRI. We can offer medication for sedation once this is scheduled. ETL DEVELOPER * Telephone Encounter - Blake Sorenson RN - 03/17/2023 4:05 PM SSIS ETL DEVELOPER Patient calling and reporting he had the doppler at [facility] for his TIPPS. Report noted in [facility] on 03/04/2023 at [facility]. Patient reports if he has to have an MRI for a follow on a lesion, he did read the report on his mychart, he will need sedation. Please review and advise. ETL DEVELOPER documented in this encounter Plan of Treatment Scheduled Referrals Name Type Priority Associated Diagnoses Order Schedule EXTERNAL NEPHROLOGY REFERRAL Outpatient Referral Less Than 1 week Renal lesion Expected: 03/23/2023, Expires: 03/23/2024 documented as of this encounter Visit Diagnoses Diagnosis Renal lesion- Primary Unspecified disorder of kidney and ureter documented in this encounter Care Teams Broker Agricultural Produce Relationship Specialty Start Date End Date Braydon Pavon PAC [address] [place] [address] PCP - General Physician Boiler Or Engine Operator 06/22/18 Riddhi Bello APRN, ADMINISTRATIVE SERVICES OFFICER [address] [place] [address] Nurse Practitioner Advanced Practice Nurse 02/10/23 documented as of this encounter
--- OUTSIDE RECORDS SUMMARY | 2024-05-08 06:04 | XMS_ITS | Encounter Summary ---
Author Organization [facility] Address [address] [place] [address] Phone Care Team Providers Care Universal Branch Consultant Name Role Phone Braydon Pavon Kunal NEAL Primary Care Provider [phone] Riddhi Bello APRN, KNOT PICKER CLOTH Unavailable Encounter Details Date Type Department Care Team (Late st Contact Info) Description 02/12/2023 Telephone [facility] - Gastroenterology - [place] [address] [place] [address] Riddhi Bello APRN, KNOT PICKER CLOTH [address] [place] [address] Social History Tobacco Use Types Packs/Day Years Used Date Smoking Tobacco: Former Cigarettes Q uit: 2002 Smokeless Tobacco: Never Alcohol Use Standard Drinks/Week Comments Not Currently 0 (1 standard drink = 0.6 oz pur e alcohol) Sexually Active Control Partners Comments Yes Female Sex and Gender Information Value Date Recorded Sex Assigned at Not on file Legal Sex Male 10:58 AM WELL FLOW OPERATOR Gender Identity Not on file Sexual [...] out and faxed to Dr Miguel in [facility]. Confirmation was obtained. This release was scanned into the Media section of patients chart documented in this encounter Plan of Treatment Not on file documented as of this encounter Visit Diagnoses Not on filedocumented in this encounter Care Teams Universal Branch Consultant Relationship Specialty Start Date End Date Braydon Pavon PAC [address] [place] [address] PCP - General Physician Rubber Goods Repairer 06/22/18 Riddhi Bello APRN, KNOT PICKER CLOTH [address] [place] [address] Nurse Practitioner Advanced Practice Nurse 02/10/23 documented as of this encounter
--- OUTSIDE RECORDS SUMMARY | 2024-05-08 06:04 | XMS_ITS | Encounter Summary ---
Author Organization [facility] Address [address] 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) Procedures GASTRO PROCEDURE Riddhi Bello APRN, CNP [address] [place] [address] Phone: tel: fax: Referral ID Status Reason Start Date Expiration Date Visits Re quested Visits Authorized [id number] Closed 02/17/2023 1 1 Reason for Visit * Reason Onset Date Comments Procedure 02/10/2023 Encounter Details Date Type Department Care Team (Late Contact Info) Description 02/10/2023 Telephone [facility] - Gastroenterology - [place] [address] [place] [phone] Riddhi Bello APRN, PERMIT SPECIALIST [address] [place] [address] Procedure Social History Tobacco Use Types Packs/Day Years Used Date Smoking Tobacco: Former Cigarettes Q uit: 2002 Smokeless Tobacco: Never Alcohol Use Standard Drinks/Week Comments Not Currently 0 (1 standard drink = 0.6 oz pur e alcohol) Sexually Active Control Partners Comments Yes Female Sex and Gender Information Value Date Recorded Sex Assigned at Not on file Legal Sex Male 10:58 AM TELEGRAPHIC 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 EGD order placed. Routing to [facility] for EGD and colonoscopy scheduling. U/s and [...] his TIPS. Patient will not go to [facility] or [facility]. He will go to [facility]. documented in this encounter Plan of Treatment [...] disease documented in this encounter Care Teams Construction Administrator Relationship Specialty Start Date End Date Braydon Pavon PAC [address] [place] [address] PCP - General Physician Electrical Engineering Manager 06/22/18 Riddhi Bello APRN, DOROTHY [address] [place] [address] Nurse Practitioner Advanced Practice Nurse 02/10/23 documented as of this encounter
--- OUTSIDE RECORDS SUMMARY | 2024-05-08 06:04 | XMS_ITS | Encounter Summary ---
Author Organization [facility] Address [address] [place] [address] Phone Care Team Providers Care Deadener Name Role Phone Braydon Pavon Kunal NEAL Primary Care Provider Riddhi Bello APRN, HOT STRIP MILL SUPERVISOR Unavailable Encounter Details Date Type Department Care Team (Late st Contact Info) Description 02/26/2023 Telephone [facility] - Gastroenterology - [place] [address] [place] [id number] Ac Berger MD [address] [address] Social History Tobacco Use Types Packs/Day Years Used Date Smoking Tobacco: Former Cigarettes Q uit: 2002 Smokeless Tobacco: Never Alcohol Use Standard Drinks/Week Comments Not Currently 0 (1 standard drink = 0.6 oz pur e alcohol) Sexually Active Control Partners Comments Yes Female Sex and Gender Information Value Date Recorded Sex Assigned at Not on file Legal Sex Male 10:58 AM BURNISHER AND 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
--- OUTSIDE RECORDS SUMMARY | 2024-05-08 06:04 | XMS_ITS | Encounter Summary ---
Author Organization [facility] Address [address] [place] [address] Phone Care Team Providers Care Machine Repairer Name Role Phone LibradoBraydon Primary Care Provider [phone] Vikram Mora MD Unavailable Riddhi Bello APRN, CNP Unavailable Reason for Referral * Radiology Services (Routine) - Closed Specialty Diagnoses / Procedures Referred By Contac t Referred To Contact Radiology Diagnoses Pain of upper abdomen Nausea and vomiting, unspecified vomiting type Procedures NM HEPATOBILIARY WITH PHARM Riddhi Bello APRN, DOROTHY [address] [place] [address] Phone: tel: fax: Referral ID Status Reason Start Date Expiration Date Visits Re quested Visits Authorized [id number] Closed 05/29/2023 1 1 LE THERAPIST * Radiology Services (Routine) - Closed Specialty Diagnoses / Procedures Referred By Contac t Referred To Contact Radiology Diagnoses Tail bone pain Procedures XR SACRUM & COCCYX Riddhi Bello APRN, KILN WORKER [address] [place] [address] Phone: tel: fax: Referral ID Status Reason Start Date Expiration Date Visits Re quested Visits Authorized [id number] Closed 05/29/2023 1 1 LE THERAPIST * Radiology Services (Routine) - Closed Specialty Diagnoses / Procedures Referred By Jordan casillas Referred To Contact Radiology Diagnoses Pain of upper abdomen Nausea and vomiting, unspecified vomiting type Procedures XR ABDOMEN KUB FLAT PLATE Riddhi Bello APRN, CNP [address] [place] [address] Phone: tel: fax: Referral ID Status Reason Start Date Expiration Date Visits Re quested Visits Authorized [id number] Closed 05/29/2023 1 1 LE THERAPIST Reason for Visit * Reason Comments Abdominal Pain Encounter Details Date Type Department Care Team (Latest Contact Info) Description 05/29/2023 11:30 AM MOBILE THERAPIST Office Visit [facility] - Gastroenterology [facility] ([facility] [address] [place] [address] Riddhi Bello APRN, DOROTHY [address] [place] [address] 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) (Primary [...] on file Legal Sex Male 10:58 AM MOBILE THERAPIST Gender Identity Not on file Sexual Orientation Not on file documented as of this encounter Last Filed Vital Signs Vital Sign Reading Time Taken Comments Blood Pressure 98/72 05/29/2023 11:22 AM MOBILE THERAPIST Pulse 116 05/29/2023 11:22 AM MOBILE THERAPIST Temperature 36.4 ??C (97.5 ??F) 05/29/2023 11:[address] Respiratory Rate 18 05/29/2023 11:22 AM MOBILE THERAPIST Oxygen Saturation 98% 05/29/2023 11:22 AM MOBILE THERAPIST Inhaled Oxygen Concentration - - Weight 95.9 kg (211 lb 8 oz) 05/29/2023 11:22 AM MOBILE THERAPIST Height 170.2 cm (5' 7 ) 05/29/2023 11:22 AM MOBILE THERAPIST Body Mass Index 33.13 05/29/2023 11:22 AM MOBILE THERAPIST documented in this encounter Progress Notes * Riddhi Bello APRN, DOROTHY - 05/29/2023 11:30 AM CST SAPG GASTRO [facility] - GASTROENTEROLOGY - [place] [address] [facility] [address] Dept: [phone] Dept Loc: [phone] Loc Patient: Camilo Curry : 1970 Sex: [...] that he fell 2 days ago at [facility] when he walked [place] and [...] SNARE, DIVERTICULOSIS; Surgeon: Ac Berger MD; Location: [facility]; Service: Gastroenterology ??? COLONOSCOPY W/ BIOPSY 2005 ??? EGD WITH BANDING ??? EGD WITH BANDING ??? TIPS PROCEDURE TIMES 2 ??? UPPER GASTROINTESTINAL ENDOSCOPY N/A 03/24/2023 Procedure: EGD-PORTAL HYPERTENSIVE GASTROPATHY, GRADE ONE ESOPHAGEAL VARCIES; Surgeon: Ac Berger MD; Location: [facility]; Service: Gastroenterology Medications: Current Outpatient Medications: ??? albuterol 108 (90 Base) MCG/ACT Aerosol Solution ??? ALPRAZolam (XANAX) 1 MG Tablet ??? carvedilol (COREG) 3.125 MG Tablet ??? ergocalciferol (VITAMIN D) 80464 UNIT Capsule ??? famotidine (PEPCID) 20 MG [...] MM Misc ??? Insulin Pen Needle (Pen [place]) 32G X 4 MM Misc ??? Insulin [...] prior EGD and colonoscopy report Riddhi Bello, HOT OILER, KILN WORKER This note was transcribed using M-Modal speech recognition software. As a result, there may be unintended grammar and spelling errors. 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 No scintigraphic evidence of common bile or cystic duct obstruction. Normal contractile response of the gallbladder to fatty meal stimulation. Narrative 06/11/2023 11:47 AM MOBILE THERAPIST EXAM DESCRIPTION: ?? NM HEPATOBILIARY WITH PHARM [...] AM T: ??06/11/2023 11:45 AM Report ID: [id number] Reading Location: ??[id number] Procedure Note Rajeev Villalobos MD - 06/11/2023 [...] Rajeev Villalobos M.D. LB: DONNA Report ID: [id number] Reading Location: [place] [address] IMPRESSION: No scintigraphic evidence of common bile or cystic duct obstruction. Normal contractile response of the gallbladder to fatty meal stimulation. Riddhi Bello HOT OILER, KILN WORKER IMG NM ORDERABLES Final Result * XR ABDOMEN KUB FLAT PLATE (05/29/2023 1:28 PM MOBILE THERAPIST) Anatomical Region Laterality Modality Abdomen N/A Digital Radiogra phy 06/01/2023 6:23 PM MOBILE THERAPIST Impressions 06/01/2023 6:26 PM MOBILE THERAPIST IMPRESSION: ?? 1. ??Nonobstructive bowel gas pattern. Narrative 06/01/2023 6:26 PM MOBILE THERAPIST EXAM DESCRIPTION: ?? XR ABDOMEN KUB FLAT [...] PM T: ??06/01/2023 6:23 PM Report ID: [id number] Reading Location: ??[id number] Procedure Note Nixon Wetzel MD - 06/01/2023 [...] Nixon Wetzel M.D. BS: BS Report ID: [id number] Reading Location: [id number] IMPRESSION: 1. Nonobstructive bowel gas pattern. Riddhi Bello HOT OILER, KILN WORKER IMG DIAGNOSTIC OR DERABLES Final Result * XR SACRUM & COCCYX (05/29/2023 1:27 PM MOBILE THERAPIST) Anatomical Region Laterality Modality Spine, Sacrum, Coccyx N/A Digital Ra diography 06/01/2023 7:28 AM MOBILE THERAPIST Impressions 06/01/2023 7:30 AM MOBILE THERAPIST IMPRESSION: No acute fracture identified. Inferior lumbar degenerative disc disease. Narrative 06/01/2023 7:30 AM MOBILE THERAPIST EXAM DESCRIPTION: XR SACRUM and COCCYX REASON [...] AM T: ??06/01/2023 7:28 AM Report ID: [id number] Reading Location: ??[id number] Procedure Note Joel Yip MD - 06/01/2023 [...] Joel Yip M.D. MF: JAYLYN Report ID: [id number] Reading Location: [id number] IMPRESSION: No acute fracture identified. Inferior lumbar degenerative disc disease. us Riddhi Bello APRN, DOROTHY IMG DIAGNOSTIC OR DERABLES Final Result * (ABNORMAL) AMMONIA (05/29/2023 1:09 PM MOBILE THERAPIST) AMMONIA 92(H) 18 - 72 umol/L 05/29/2023 1:32 PM MOBILE THERAPIST [facility] Blood Venipuncture / Unknown 05/29/2023 1:09 PM MOBILE THERAPIST 05/29/2023 1:19 PM MOBILE THERAPIST us Riddhi Bello APRN, KILN WORKER CHEMISTRY ORDERAB LES Final Result [facility] [address] [place] [address] * LIPASE (05/29/2023 1:09 PM MOBILE THERAPIST) LIPASE 13 8 - 78 U/L 05/29/2023 1:49 PM MOBILE THERAPIST [facility] Blood Venipuncture / Unknown 05/29/2023 1:09 PM MOBILE THERAPIST 05/29/2023 1:20 PM MOBILE THERAPIST Riddhi Bello HOT OILER, KILN WORKER CHEMISTRY ORDERAB LES Final Result Performing Organization Address City/[facility] Co de Phone Number [facility] [address] [place] [address] * (ABNORMAL) CMP (COMPREHENSIVE METABOLIC PANEL) (05/29/2023 1:09 PM MOBILE THERAPIST) SODIUM 130(L) 136 - 145 mmol/L 05/29/2023 1:49 PM MOBILE THERAPIST [facility] POTASSIUM 4.5 3.5 - 5.1 mmol/L 05/29/2023 1:49 PM MOBILE THERAPIST [facility] CHLORIDE 101 98 - 107 mmol/L 05/29/2023 1:49 PM MOBILE THERAPIST [facility] CO2, VENOUS 22 22 - 30 mmol/L 05/29/2023 1:49 PM MOBILE THERAPIST [facility] ANION GAP 11.5 <18.0 mmol/L 05/29/2023 1:49 PM MOBILE THERAPIST [facility] GLUCOSE 288(H) 70 - 99 mg/dL 05/29/2023 1:49 PM MOBILE THERAPIST [facility] BUN 11 8 - 26 mg/dL 05/29/2023 1:49 PM MOBILE THERAPIST [facility] CREATININE, BLOOD 1.16 0.70 - 1.30 mg/dL 05/29/2023 1:49 PM MOBILE THERAPIST [facility] BUN/CREATININE RATIO 9(L) 12 - 20 ratio 05/29/2023 1:49 PM [facility] TOTAL PROTEIN 7.1 6.3 - 8.2 g/dL 05/29/2023 1:49 PM [facility] ALBUMIN 3.8 3.5 - 5.0 g/dL 05/29/2023 1:49 PM [facility] A/G RATIO 1.2 1.0 - 2.2 05/29/2023 1:49 PM [facility] CALCIUM 9.6 8.7 - 10.5 mg/dL 05/29/2023 1:49 PM [facility] T BILI 3.4(H) 0.2 - 1.2 mg/dL 05/29/2023 1:49 PM [facility] SGOT (AST) 36(H) 5 - 34 U/L 05/29/2023 1:49 PM [facility] SGPT (ALT) 23 0 - 55 U/L 05/29/2023 1:49 PM [facility] ALKALINE PHOSPHATASE 103 40 - 150 U/L 05/29/2023 1:49 PM [facility] IS THE PATIENT REQUIRED TO BE FASTING? No 05/29/2023 1:49 PM [facility] GFR, ESTIMATED >60 >=60 05/29/2023 1:49 PM [facility] Comment: Creatinine Clearance is the preferred criteria for selecting drug dose adjustments in renally impaired patients. ??The GFR is provided as additional pertinent clinical information. GFR is reported in mL/min/1.73 sq m. Calculation based on the Chronic Kidney Disease Epidemiology Collaboration (CKD- EPI) equation refit without adjustment for race. GFR, EST. >60 >=60 024 1:49 PM [facility] GFR, EST. NONAFRICAN >60 >=60 05/29/2023 1:49 PM [facility] Blood Venipuncture / Unknown 05/29/2023 1:09 PM MOBILE THERAPIST 05/29/2023 1:20 PM MOBILE THERAPIST Riddhi Bello APRN, CNP CHEMISTRY ORDERAB LES Final Result [facility] [address] [place] [address] documented in this encounter Visit Diagnoses Diagnosis [...] type documented in this encounter Care Teams Machine Repairer Relationship Specialty Start Date End Date Braydon Pavon, [facility] [address] [place] [address] PCP - General Physician Oil Well Directional Surveyor 06/22/18 Vikram Mora MD [address] [address] Consulting Physician Endocrinology 05/21/23 Riddhi Bello APRN, CNP [address] [place] [address] Nurse Practitioner Advanced Practice Nurse 02/10/23 documented as of this encounter
--- OUTSIDE RECORDS SUMMARY | 2024-05-08 06:04 | XMS_ITS | Encounter Summary ---
Author Organization [employer] Care Team Providers Care Armed Guard Name Role Phone Braydon Pavon Primary Care Provider [phone] Riddhi Bello APRN, GRAPHIC COORDINATOR Unavailable Encounter Details Date Type Department [...] on file Legal Sex Male 10:58 AM KETTLE SKIMMER Gender Identity Not on file Sexual Orientation Not on file documented as of this encounter Plan of Treatment Not on file documented as of this encounter Visit Diagnoses Not on filedocumented in this encounter Care Teams Armed Guard Relationship Specialty Start Date End Date Braydon Pavon PAC [address] [place] [address] PCP - General Physician Clam Shucking Machine Tender 06/22/18 Riddhi Bello APRN, GRAPHIC COORDINATOR [address] [place] [address] Nurse Practitioner Advanced Practice Nurse 02/10/23 documented as of this encounter
--- OUTSIDE RECORDS SUMMARY | 2024-05-08 06:04 | XMS_ITS | Encounter Summary ---
Author Organization [facility] Address [address] [place] [address] Phone Care Team Providers Care It Service Manager Name Role Phone Braydon Pavon Kunal NEAL Primary Care Provider [phone] Riddhi Bello APRN, MARKET GARDEN WORKER Unavailable Reason for Visit * Auth/Cert (Routine) Specialty Diagnoses / Procedures Referred By Jordan casillas Referred To Contact Diagnoses ESOPHAGEAL VARICES, HISTORY OF COLON POLYPS Procedures EGD COLONOSCOPY Referral ID Status Reason Start Date Expiration Date Visits Re quested Visits Authorized [id number] 1 1 Encounter Details Date Type Department Care Team (Late st Contact Info) Description 03/24/2023 6:25 AM LINE LEAD Ancillary [facility] [address] [place] [address] Ac Berger MD 2 [facility] [address] [place] [address] Provider, Anesthesiologist Social History Tobacco Use Types Packs/Day Years Used Date Smoking Tobacco: Former Cigarettes Q uit: 2002 Smokeless Tobacco: Never Alcohol Use Standard Drinks/Week Comments Not Currently 0 (1 standard drink = 0.6 oz pur e alcohol) Sexually Active Control Partners Comments Yes Female Sex and Gender Information Value Date Recorded Sex Assigned at Not on file Legal Sex Male 10:58 AM LINE LEAD Gender Identity Not on file Sexual [...] IMAGING - COLONOSCOPY Routine 03/24/2023 6:23 AM LINE LEAD documented in this encounter Results * GI IMAGING - COLONOSCOPY (03/24/2023 6:23 AM LINE LEAD) us Ac Berger MD IMG DIAGNOSTIC ORDERABLES Final Result documented in this encounter Visit Diagnoses Not on filedocumented in this encounter Care Teams It Service Manager Relationship Specialty Start Date End Date Braydon Pavon PAC [address] [place] [address] PCP - General Physician Assistant County Attorney 06/22/18 Riddhi Bello APRN, MARKET GARDEN WORKER [address] [place] [address] Nurse Practitioner Advanced Practice Nurse 02/10/23 documented as of this encounter
--- OUTSIDE RECORDS SUMMARY | 2024-05-08 06:04 | XMS_ITS | Encounter Summary ---
Author Organization [facility] Address [address] [place] [address] Phone Care Team Providers Care Banbury Mixer Operator Name Role Phone Braydon Pavon VAL Primary Care Provider Riddhi Bello APRN, APPEALS NURSE Unavailable Encounter Details Date Type Department Care Team (Late st Contact Info) Description 05/11/2023 Telephone [facility] - Gastroenterology - [place] [address] [place] [address] Ac Berger MD [address] [address] Social History Tobacco Use Types Packs/Day Years Used Date Smoking Tobacco: Former Cigarettes Q uit: 2002 Smokeless Tobacco: Never Alcohol Use Standard Drinks/Week Comments Not Currently 0 (1 standard drink = 0.6 oz pur e alcohol) Sexually Active Control Partners Comments Yes Female Sex and Gender Information Value Date Recorded Sex Assigned at Not on file Legal Sex Male 10:58 AM STAFF DEVELOPER Gender Identity Not on file Sexual Orientation Not on file documented as of this encounter Miscellaneous Notes * Telephone Encounter - Brianna Sorenson RN - 05/11/2023 9:14 AM STAFF DEVELOPER Letter sent to patient with result note. F DEVELOPER * Telephone Encounter - Brianna Sorenson RN - 05/11/2023 9:13 AM STAFF DEVELOPER The patient has not viewed the following result(s) yet. ??Contains abnormal data??CBC with Auto Differential Order: [id number] - Part of Panel Order [id number] Status: Final result ?? Visible to patient: [...] 42.5 MCV 82.0 - 96.0 fL 73.7??Low?? F DEVELOPER documented in this encounter Plan of Treatment Not on file documented as of this encounter Visit Diagnoses Not on filedocumented in this encounter Care Teams Banbury Mixer Operator Relationship Specialty Start Date End Date Braydon Pavon PAC [address] [place] [address] PCP - General Physician Television Agent 06/22/18 Riddhi Bello APRN, APPEALS NURSE [address] [place] [address] Nurse Practitioner Advanced Practice Nurse 02/10/23 documented as of this encounter
--- OUTSIDE RECORDS SUMMARY | 2024-05-08 06:04 | XMS_ITS | Encounter Summary ---
Author Organization [facility] Address [address] [place] [address] Phone Care Team Providers Care Fan Mail Clerk Name Role Phone Braydon Pavon Kunal NEAL Primary Care Provider [phone] Riddhi Bello APRN, WELDING MACHINE OPERATOR PLASMA ARC Unavailable Reason for Visit * Auth/Cert (Routine) Specialty Diagnoses / Procedures Referred By Jordan casillas Referred To Contact Diagnoses ESOPHAGEAL VARICES, HISTORY OF COLON POLYPS Procedures EGD COLONOSCOPY Referral ID Status Reason Start Date Expiration Date Visits Re quested Visits Authorized [id number] 1 1 Encounter Details Date Type Department Care Team (Late st Contact Info) Description 03/24/2023 6:30 AM STABLE MANAGER Ancillary [facility] [address] [place] [address] cA Berger MD 2 [facility] [address] [place] [address] Provider, Anesthesiologist Social History Tobacco Use Types Packs/Day Years Used Date Smoking Tobacco: Former Cigarettes Q uit: 2002 Smokeless Tobacco: Never Alcohol Use Standard Drinks/Week Comments Not Currently 0 (1 standard drink = 0.6 oz pur e alcohol) Sexually Active Control Partners Comments Yes Female Sex and Gender Information Value Date Recorded Sex Assigned at Not on file Legal Sex Male 10:58 AM STABLE MANAGER Gender Identity Not on file Sexual [...] IMAGING - EGD Routine 03/24/2023 6:23 AM STABLE MANAGER documented in this encounter Results * GI LAB IMAGING - EGD (03/24/2023 6:23 AM STABLE MANAGER) us Ac Berger MD IMG DIAGNOSTIC ORDERABLES Final Result documented in this encounter Visit Diagnoses Not on filedocumented in this encounter Care Teams Fan Mail Clerk Relationship Specialty Start Date End Date Braydon Pavon PAC [address] [place] [address] PCP - General Physician Packaging Design Engineer 06/22/18 Riddhi Bello APRN, WELDING MACHINE OPERATOR PLASMA ARC [address] [place] [address] Nurse Practitioner Advanced Practice Nurse 02/10/23 documented as of this encounter
--- OUTSIDE RECORDS SUMMARY | 2024-05-08 06:04 | XMS_ITS | Encounter Summary ---
Author Organization [employer] Care Team Providers Care Etl Database Developer Name Role Phone Braydon Pavon Primary Care Provider [phone] Riddhi Bello APRN, CIGAR MACHINE FEEDER Unavailable Encounter Details Date Type Department Care [...] on file Legal Sex Male 10:58 AM GRAIN MERCHANDISING MANAGER Gender Identity Not on file Sexual [...] on filedocumented in this encounter Care Teams Etl Database Developer Relationship Specialty Start Date End Date Braydon Pavon PAC [address] [place] [address] PCP - General Physician Bobbin Inspector 06/22/18 Riddhi Bello APRN, CIGAR MACHINE FEEDER [address] [place] [address] Nurse Practitioner Advanced Practice Nurse 02/10/23 documented as of this encounter
--- OUTSIDE RECORDS SUMMARY | 2024-05-08 06:04 | XMS_ITS | Encounter Summary ---
Author Organization [facility] Address [address] [place] [address] Phone Care Team Providers Care Document Design Specialist Name Role Phone Braydon Pavon VAL Primary Care Provider [phone] Riddhi Bello APRN, STOCK PARTS INSPECTOR Unavailable Encounter Details Date Type Department Care Team (Late st Contact Info) Description 02/10/2023 2:10 PM CDT [facility] [address] [place] [address] Riddhi Bello APRN, STOCK PARTS INSPECTOR [address] [place] [address] Diabetes mellitus without complication (HCC) (Primary Dx) [...] on file Legal Sex Male 10:58 AM HEAD OF PARTNER DEVELOPMENT Gender Identity Not on file Sexual Orientation [...] 6.0 % 02/10/2023 2:53 PM CDT [facility] Est Average Glucose 283.4 mg/dL 02/10/2023 2:53 PM CDT [facility] Blood Venipuncture / Unknown 02/10/2023 2:26 PM CDT 02/10/2023 2:37 PM CDT Narrative [facility] - 02/10/2023 2:53 PM CDT HEMOGLOBIN A1C: DIABETIC PATIENTS: WELL-CONTROLLED: ?? 6.2 - 7.0 INTERMEDIATE WELL-CONTROLLED: ??7.0 - 9.0 POORLY-CONTROLLED: ??>9.0 Ying Dueñas BOILER OPERATORS SUPERVISOR, STOCK PARTS INSPECTOR CHEMISTRY ORDERABLES Fin al Result Performing Organization Address City/[facility]/ZIP Co de Phone Number [facility] [address] [place] [address] * HEMOGLOBIN A1C W/ ESTIMATED GLUCOSE (02/10/2023 12:00 AM CDT) HGB-A1C 11.5 % SCAN 02/10/2023 Ying Dueñas BOILER OPERATORS SUPERVISOR, STOCK PARTS INSPECTOR CHEMISTRY ORDERABLES Fin al Result SCAN documented in this encounter Visit Diagnoses Diagnosis Diabetes mellitus without complication (HCC)- Primary Type II or unspecified type diabetes mellitus without mention of complication, not stated as uncontrolled documented in this encounter Care Teams Document Design Specialist Relationship Specialty Start Date End Date Braydon Pavon PAC [address] [place] [address] PCP - General Physician Wireless Architect 06/22/18 Riddhi Bello APRN, STOCK PARTS INSPECTOR [address] [place] [address] Nurse Practitioner Advanced Practice Nurse 02/10/23 documented as of this encounter
--- OUTSIDE RECORDS SUMMARY | 2024-05-08 06:04 | XMS_ITS | Encounter Summary ---
Author Organization [facility] Address [address] [place] [address] Phone Care Team Providers Care Surfacer Name Role Phone BebeabBraydon Primary Care Provider [phone] Vikram Mora MD Unavailable Riddhi Bello APRN, CNP Unavailable Reason for Referral * Radiology Services (Routine) - Closed Specialty Diagnoses / Procedures Referred By Contac t Referred To Contact Radiology Diagnoses Pain of upper abdomen Nausea and vomiting, unspecified vomiting type Procedures XR ABDOMEN KUB FLAT PLATE Riddhi Bello APRN, RESOURCE COORDINATOR [address] [place] [address] Phone: tel: fax: Referral ID Status Reason Start Date Expiration Date Visits Re quested Visits Authorized [id number] Closed 05/29/2023 1 1 ITECTURAL PRACTICE MANAGER * Radiology Services (Routine) - Closed Specialty Diagnoses / Procedures Referred By Contac t Referred To Contact Radiology Diagnoses Tail bone pain Procedures XR SACRUM & COCCYX Riddhi Bello APRN, RESOURCE COORDINATOR [address] [place] [address] Phone: tel: fax: Referral ID Status Reason Start Date Expiration Date Visits Re quested Visits Authorized [id number] Closed 05/29/2023 1 1 ITECTURAL PRACTICE MANAGER Reason for Visit * Radiology Services (Routine) - Closed Specialty Diagnoses / Procedures Referred By Jordan t Referred To Contact Radiology Diagnoses Tail bone pain Procedures XR SACRUM & COCCYX Riddhi Bello APRN, RESOURCE COORDINATOR [address] [place] [address] Phone: tel: fax: Referral ID Status Reason Start Date Expiration Date Visits Re quested Visits Authorized [id number] Closed 05/29/2023 1 1 Encounter Details Date Type Department Care Team (Late st Contact Info) Description 05/29/2023 12:30 PM ARCHITECTURAL PRACTICE MANAGER - 05/29/2023 11:59 PM ARCHITECTURAL PRACTICE MANAGER Hospital Encounter [facility] Diagnostic Radiology [address] [place] [address] Riddhi Bello APRN, RESOURCE COORDINATOR [address] [place] [address] Discharge Disposition: Discharged to home or Selfcare [...] on file Legal Sex Male 10:58 AM ARCHITECTURAL PRACTICE MANAGER Gender Identity Not on file Sexual [...] 180 Tablet 3 02/17/2023 ergocalciferol (VITAMIN D) 10681 UNIT Capsule Take 50,000 Units by mouth. [...] Subcutaneous route. 11/07/2020 Insulin Pen Needle (Pen [place]) 32G X 4 MM Misc Inject 3 [...] KUB FLAT PLATE Routine 05/29/2023 1:28 PM ARCHITECTURAL PRACTICE MANAGER Pain of upper abdomen Nausea and vomiting, unspecified vomiting type XR SACRUM & COCCYX Routine 05/29/2023 1: 27 PM ARCHITECTURAL PRACTICE MANAGER Tail bone pain documented in this encounter Results * XR ABDOMEN KUB FLAT PLATE (05/29/2023 1:28 PM ARCHITECTURAL PRACTICE MANAGER) Anatomical Region Laterality Modality Abdomen N/A Digital Radiogra phy 06/01/2023 6:23 PM ARCHITECTURAL PRACTICE MANAGER Impressions 06/01/2023 6:26 PM ARCHITECTURAL PRACTICE MANAGER IMPRESSION: ?? 1. ??Nonobstructive bowel gas pattern. Narrative 06/01/2023 6:26 PM ARCHITECTURAL PRACTICE MANAGER EXAM DESCRIPTION: ?? XR ABDOMEN KUB FLAT [...] PM T: ??06/01/2023 6:23 PM Report ID: [id number] Reading Location: ??[id number] Procedure Note Nixon Wetzle MD - 06/01/2023 EXAM DESCRIPTION: XR ABDOMEN [...] Nixon Wetzel M.D. BS: ASHLIE Report ID: [id number] Reading Location: [id number] IMPRESSION: 1. Nonobstructive bowel gas pattern. Riddhi Bello DAYCARE MANAGER, RESOURCE COORDINATOR IMG DIAGNOSTIC OR DERABLES Final Result * XR SACRUM & COCCYX (05/29/2023 1:27 PM ARCHITECTURAL PRACTICE MANAGER) Anatomical Region Laterality Modality Spine, Sacrum, Coccyx N/A Digital Ra diography 06/01/2023 7:28 AM ARCHITECTURAL PRACTICE MANAGER Impressions 06/01/2023 7:30 AM ARCHITECTURAL PRACTICE MANAGER IMPRESSION: No acute fracture identified. Inferior lumbar degenerative disc disease. Narrative 06/01/2023 7:30 AM ARCHITECTURAL PRACTICE MANAGER EXAM DESCRIPTION: XR SACRUM and COCCYX REASON [...] AM T: ??06/01/2023 7:28 AM Report ID: [id number] Reading Location: ??[id number] Procedure Note Joel Yip MD - 06/01/2023 [...] Joel Yip M.D. MF: [id number] Report ID: [id number] Reading Location: [id number] IMPRESSION: No acute fracture identified. Inferior lumbar degenerative disc disease. Riddhi Bello APRN, CNP IM[facility]lon DIAGNOSTIC OR DERABLES Final Result documented in this encounter Visit Diagnoses Diagnosis Tail bone pain Other disorder of coccyx Pain of upper abdomen Abdominal pain, other specified site Nausea and vomiting, unspecified vomiting type documented in this encounter Care Teams Surfacer Relationship Specialty Start Date End Date Braydon Pavon PAC [address] [place] [id number] PCP - General Physician Editor Managing Director 06/22/18 Vikram Mora MD #[address] [id number] Consulting Physician Endocrinology 05/21/23 Riddhi Bello APRN, DOROTHY [address] [place] [address] Nurse Practitioner Advanced Practice Nurse 02/10/23 documented as of this encounter
--- OUTSIDE RECORDS SUMMARY | 2024-05-08 06:04 | XMS_ITS | Encounter Summary ---
Author Organization [facility] Address [address] [place] [address] Phone Care Team Providers Care Electric Deicer Inspector Name Role Phone Janeth Pavon Kunal NEAL Primary Care Provider [phone] Riddhi Bello APRN, STATISTICAL MODELER Unavailable Reason for Referral * Radiology Services (Routine) - Closed Specialty Diagnoses / Procedures Referred By Jordan casillas Referred To Contact Radiology Procedures GI LAB IMAGING - EGD Ac Berger MD [address] [address] Phone: tel: fax: Referral ID Status Reason Start Date Expiration Date Visits Re quested Visits Authorized [id number] Closed 03/24/2023 1 1 MBLY OPERATOR * Radiology Services (Routine) - Closed Specialty Diagnoses / Procedures Referred By Jordan casillas Referred To Contact Radiology Procedures GI IMAGING - COLONOSCOPY Ac Berger MD [address] [address] Phone: tel: fax: Referral ID Status Reason Start Date Expiration Date Visits Re quested Visits Authorized [id number] Closed 03/24/2023 1 1 MBLY OPERATOR Reason for Visit * Auth/Cert (Routine) Specialty Diagnoses / Procedures Referred By Jordan casillas Referred To Contact Diagnoses ESOPHAGEAL VARICES, HISTORY OF COLON POLYPS Procedures EGD COLONOSCOPY Referral ID Status Reason Start Date Expiration Date Visits Re quested Visits Authorized [id number] 1 1 Encounter Details Date Type Department Care Team (Latest Contact Info) Description 03/24/2023 6:19 AM ASSEMBLY OPERATOR - 03/24/2023 9:08 AM ASSEMBLY OPERATOR Hospital Encounter [facility] GI Lab Preop/Pacu II [address] [place] [address] Ac Berger MD 2 [facility] [address] [place] [address] Discharge Disposition: Discharged to home or Selfcare [...] on file Legal Sex Male 10:58 AM ASSEMBLY OPERATOR Gender Identity Not on file Sexual [...] Comments Blood Pressure 132/83 03/24/2023 8:36 AM ASSEMBLY OPERATOR Pulse 88 03/24/2023 8:36 AM ASSEMBLY OPERATOR Temperature 36 ??C (96.8 ??F) 03/24/2023 6:48 AM ASSEMBLY OPERATOR Respiratory Rate 20 03/24/2023 8:36 AM ASSEMBLY OPERATOR Oxygen Saturation 100% 03/24/2023 8:36 AM ASSEMBLY OPERATOR Inhaled Oxygen Concentration - - Weight 97.5 kg (215 lb) 02/27/2023 3:04 PM CDT Height 172.7 cm (5' 8 ) 02/27/2023 3:04 PM CDT Body Mass Index 32.69 02/27/2023 3:04 PM CDT documented in this encounter Discharge Instructions * Discharge Instructions* Felicitas Florentino RN - 03/24/2023 8:11 AM ASSEMBLY OPERATOR You had a colonoscopy today. Dr. Berger [...] WORK, UNLESS INSTRUCTED OTHERWISE. Call doctor's office ([phone]) or go to Emergency room for: Difficulty Breathing, Headache Or Visual Disturbances Persistent Dizziness Or Light-Headedness Persistent Nausea and Vomiting Temperature greater then 100.0 Significant abdominal pain, chest pain, or bleeding. Here at [facility] we strive to provide excellent care to [...] envelope is provided. Thank you for choosing [facility]. MBLY OPERATOR MBLY OPERATOR documented in this encounter Medications at Time of Discharge albuterol 108 (90 Base) MCG/ACT Aerosol Solution every 4 hours as needed. 02/02/2023 ALPRAZolam (XANAX) 1 MG Tablet Take by mouth as needed. carvedilol (COREG) 3.125 MG Tablet Take 1 Tablet by mouth 2 times daily. 180 Tablet 3 02/17/2023 ergocalciferol (VITAMIN D) 10733 UNIT Capsule Take 50,000 Units by mouth. [...] Subcutaneous route. 11/07/2020 Insulin Pen Needle (Pen [place]) 32G X 4 MM Misc Inject 3 [...] procedure. Ac Berger MD 03/24/2023 7:34 AM ASSEMBLY OPERATOR MBLY OPERATOR documented in this encounter OR Notes * [...] Surgeon: Ac Berger MD, 03/24/2023, 8:07 AM ASSEMBLY OPERATOR Primary Care Physician: JANETH PAVON, PAC MBLY OPERATOR * OR Surgeon - Ac Berger MD [...] Surgeon: Ac Berger MD, 03/24/2023, 7:41 AM ASSEMBLY OPERATOR Primary Care Physician: JANETH PAVON, PAC MBLY OPERATOR documented in this encounter Miscellaneous Notes * [...] Transition of Care Outcome: Ongoing (see interventions/notes) MBLY OPERATOR * Niru - Lyric Dudley RN - 02/27/2023 3:05 PM CDT [facility] GI TEACHING Patient Name: Camilo Curry : 1970 CSN#: [id number] Person Educated Patient Ready to Learn Yes [...] for your procedure as instructed by the [facility] GI Lab. Go to Registration the [...] be allowed to accompany you to the [facility]. No children under the age of 16 will be allowed in the [facility] unless they are the patient. 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 documented in this encounter Plan of Treatment Not on file documented as of this encounter Procedures Procedure Name Priority Date/Time Associated Diagnosis Comments CBC WITH AUTO DIFFERENTIAL STAT 03/24/2023 9:01 AM ASSEMBLY OPERATOR PROTIME (PT) (PROTHROMBIN TIME) STAT 03/24/2023 9:01 AM ASSEMBLY OPERATOR CMP (COMPREHENSIVE METABOLIC PANEL) STAT 03/24/2023 9:01 AM ASSEMBLY OPERATOR COMPLETE BLOOD COUNT (CBC) WITH DIFF STAT 03/24/2023 9:01 AM ASSEMBLY OPERATOR PATHOLOGY SURGICAL Routine 03/24/2023 8: 03 AM ASSEMBLY OPERATOR COLONOSCOPY 03/24/2023 7:31 AM ASSEMBLY OPERATOR EGD-PORTAL HYPERTENSIVE GASTROPATHY, GRADE ONE ESOPHAGEAL VARCIESCOLONOSCOPY-C ECAL POLYP REMOVED BY HOT SNARE, DIVERTICULOSIS Special Needs DM, DOUBLE PREP - Dx varices/polyps EGD 03/24/2023 7:31 AM ASSEMBLY OPERATOR EGD-PORTAL HYPERTENSIVE GASTROPATHY, GRADE ONE ESOPHAGEAL VARCIESCOLONOSCOPY-C ECAL POLYP REMOVED BY HOT SNARE, DIVERTICULOSIS Special Needs DM, DOUBLE PREP - Dx varices/polyps POCT GLUCOSE Routine 03/24/2023 6:41 AM ASSEMBLY OPERATOR GI LAB IMAGING - EGD Routine 03/24/2023 6:23 AM ASSEMBLY OPERATOR GI IMAGING - COLONOSCOPY Routine 03/24/2023 6:23 AM ASSEMBLY OPERATOR documented in this encounter Results * (ABNORMAL) CBC with Auto Differential (03/24/2023 9:01 AM ASSEMBLY OPERATOR) WBC 3.75(L) 4.00 - 12.00 10(3)/mcL 03/24/2023 9:33 AM ASSEMBLY OPERATOR [facility] RBC 5.77 4.40 - 5.80 10(6)/mcL 03/24/2023 9:33 AM ASSEMBLY OPERATOR [facility] HEMOGLOBIN (HGB) 13.2 13.0 - 16.5 g/dL 03/24/2023 9:33 AM ASSEMBLY OPERATOR [facility] HEMATOCRIT (HCT) 42.5 38.0 - 50.0 % 03/24/2023 9:33 AM ASSEMBLY OPERATOR [facility] MCV 73.7(L) 82.0 - 96.0 fL 03/24/2023 9:33 AM ASSEMBLY OPERATOR [facility] MCH 22.9(L) 26.0 - 32.0 pg 03/24/2023 9:33 AM ASSEMBLY OPERATOR [facility] MCHC 31.1 31.0 - 36.0 g/dL 03/24/2023 9:33 AM ASSEMBLY OPERATOR [facility] PLATELET COUNT 90(L) 140 - 440 10(3)/[facility] 03/24/2023 9:33 AM [facility] RDW 17.3(H) 11.8 - 15.5 % 03/24/2023 9:33 AM [facility] MPV 10.4 8.0 - 12.6 fL 03/24/2023 9:33 AM ASSEMBLY OPERATOR [facility] NEUTROPHILS 70.2(H) 40.0 - 68.0 % 03/24/2023 9:33 AM [facility] LYMPHOCYTES 16.8(L) 19.0 - 49.0 % 03/24/2023 9:33 AM [facility] MONOCYTES 8.0 3.0 - 13.0 % 03/24/2023 9:33 AM [facility] EOSINOPHILS 3.7 0.0 - 8.0 % 03/24/2023 9:33 AM [facility] BASOPHILS 1.3(H) 0.0 - 1.0 % 03/24/2023 9:33 AM [facility] ABSOLUTE NEUTROPHILS 2.63 1.40 - 5.30 10(3)/[facility] 03/24/2023 9:33 AM [facility] ABSOLUTE LYMPHOCYTES 0.63(L) 0.90 - 3.30 10(3)/[facility] 03/24/2023 9:33 AM [facility] ABSOLUTE MONOCYTES 0.30 0.10 - 0.90 10(3)/[facility] 03/24/2023 9:33 AM [facility] ABSOLUTE EOSINOPHIL 0.14 0.00 - 0.50 10(3)/[facility] 03/24/2023 9:33 AM [facility] ABSOLUTE BASOPHILS 0.05 0.00 - 0.10 10(3)/[facility] 03/24/2023 9:33 AM [facility] NRBC PER 100 WBC 0 03/24/20 9:33 AM [facility] RESULTS ARE CONSISTENT WITH PERIPHERAL SMEAR REVIEW Yes 03/24/2023 9:33 AM ASSEMBLY OPERATOR [facility] Blood Venipuncture / Unknown 03/24/2023 9:01 AM ASSEMBLY OPERATOR 03/24/2023 9:05 AM ASSEMBLY OPERATOR Narrative [facility] - 03/24/2023 9:33 AM ASSEMBLY OPERATOR microcytes Ac Berger MD HEMATOLOGY ORDERABLES Final Resu lt Performing Organization Address City/[facility] Co de Phone Number [facility] [address] [place] [address] * (ABNORMAL) PROTIME (PT) (PROTHROMBIN TIME) (03/24/2023 9:01 AM ASSEMBLY OPERATOR) PROTIME-PATIENT 15.4(H) 11.6 - 14.8 sec 03/24/2023 9:20 AM ASSEMBLY OPERATOR [facility] INR 1.2 0.9 - 1.2 03/24/2023 9:20 AM ASSEMBLY OPERATOR [facility] Comment: Therapeutic Ranges INR = 2.0-3.0: Venous thromb, atrial fib, pul embolism, tissue heart valve, ami. INR = 2.5-3.5: Mechanical heart valve Critical value for INR is >/= 4.5 Blood Venipuncture / Unknown 03/24/2023 9:01 AM ASSEMBLY OPERATOR 03/24/2023 9:05 AM ASSEMBLY OPERATOR Ac Berger MD HEMATOLOGY ORDERABLES Final Resu lt Performing Organization Address City/[facility] Co de Phone Number [facility] [address] [place] [address] * (ABNORMAL) CMP (Comprehensive Metabolic Panel) (03/24/2023 9:01 AM ASSEMBLY OPERATOR) Pathologist [facility] SODIUM 137 136 - 145 mmol/L 03/24/2023 9:29 AM ASSEMBLY OPERATOR [facility] POTASSIUM 4.1 3.5 - 5.1 mmol/L 03/24/2023 9:29 AM [facility] CHLORIDE 104 98 - 107 mmol/L 03/24/2023 9:29 AM [facility] CO2, VENOUS 24 22 - 30 mmol/L 03/24/2023 9:29 AM [facility] ANION GAP 13.1 <18.0 mmol/L 03/24/2023 9:29 AM [facility] GLUCOSE 273(H) 70 - 99 mg/dL 03/24/2023 9:29 AM [facility] BUN 9 8 - 26 mg/dL 03/24/2023 9:29 AM [facility] CREATININE, BLOOD 0.79 0.70 - 1.30 mg/dL 03/24/2023 9:29 AM [facility] BUN/CREATININE RATIO 11(L) 12 - 20 ratio 03/24/2023 9:29 AM [facility] TOTAL PROTEIN 6.5 6.3 - 8.2 g/dL 03/24/2023 9:29 AM [facility] ALBUMIN 3.6 3.5 - 5.0 g/dL 03/24/2023 9:29 AM [facility] A/G RATIO 1.2 1.0 - 2.2 03/24/2023 9:29 AM [facility] CALCIUM 8.9 8.7 - 10.5 mg/dL 03/24/2023 9:29 AM [facility] T BILI 1.9(H) 0.2 - 1.2 mg/dL 03/24/2023 9:29 AM [facility] SGOT (AST) 26 5 - 34 U/L 03/24/2023 9:29 AM [facility] SGPT (ALT) 20 0 - 55 U/L 03/24/2023 9:29 AM [facility] ALKALINE PHOSPHATASE 90 40 - 150 U/L 03/24/2023 9:29 AM [facility] GFR, ESTIMATED >60 >=60 03/24/2023 9:29 AM [facility] Comment: Creatinine Clearance is the preferred criteria for selecting drug dose adjustments in renally impaired patients. ??The GFR is provided as additional pertinent clinical information. GFR is reported in mL/min/1.73 sq m. Calculation based on the Chronic Kidney Disease Epidemiology Collaboration (CKD- EPI) equation refit without adjustment for race. GFR, EST. >60 >=60 023 9:29 AM ASSEMBLY OPERATOR [facility] GFR, EST. NONAFRICAN >60 >=60 03/24/2023 9:29 AM ASSEMBLY OPERATOR [facility] Blood Venipuncture / Unknown 03/24/2023 9:01 AM ASSEMBLY OPERATOR 03/24/2023 9:05 AM ASSEMBLY OPERATOR us Ac Berger MD CHEMISTRY ORDERABLES Final Resul t [facility] [address] [place] [address] * Pathology Surgical (03/24/2023 8:03 AM ASSEMBLY OPERATOR) Case Report Surgical Pathology Report ? Case: [id number] ? Authorizing Provider: ??Ac Berger MD ?Collected: ? 03/24/2023 08:03 AM ? [facility] ? Received: ?03/24/2023 09:32 AM ? [facility] ? Lab Main ? Pathologist: ? Angeles Ward MD PhD ? Specimen: ?Colon, CECAL POLYP ? 03/25/2023 8:20 AM [facility] FINAL DIAGNOSIS Cecal polyp, polypectomy: - Tubular adenoma 03/25/2023 8:20 AM [facility] Pre-Operative Diagnosis Esophageal varices, history of colon polyps 03/25/2023 8:20 AM [facility] Gross Description A. CECAL POLYP [...] 13 hours, 43 minutes. 03/25/2023 8:20 AM [facility] Microscopic Description Microscopic examination was performed which supports the final diagnosis. All control tissues stained appropriately. 03/25/2023 8:20 AM [facility] Tissue COLON STRUCTURE / Unknown 03/24/2023 8:03 AM ASSEMBLY OPERATOR 03/24/2023 9:32 AM ASSEMBLY OPERATOR us Ac Berger MD PATHOLOGY/CYTOLOGY ORDERABLES Fi nal Result [facility] [address] [place] [address] * (ABNORMAL) POCT Glucose (03/24/2023 6:41 AM ASSEMBLY OPERATOR) GLUCOSE,BEDSID E POCT 254(H) 70 - 99 mg/dL 03/24/2023 6:47 AM ASSEMBLY OPERATOR [facility] Comment:Patient RN Performed Blood 03/24/2023 6:41 AM ASSEMBLY OPERATOR 03/24/2023 6:47 AM ASSEMBLY OPERATOR us None Provider POINT OF CARE TESTING Final Resu lt [facility] [address] [place] [address] * GI LAB IMAGING - EGD (03/24/2023 6:23 AM ASSEMBLY OPERATOR) us Ac PATEL DIAGNOSTIC ORDERABLES Final Result * GI IMAGING - COLONOSCOPY (03/24/2023 6:23 AM ASSEMBLY OPERATOR) us Ac PATEL DIAGNOSTIC ORDERABLES Final Result [...] PRE-OP (SURGERY) New Bag 03/24/2023 7:28 AM ASSEMBLY OPERATOR 20 mL/hr 20 mL/hr ondansetron (ZOFRAN) injection 4 mg 4 mg, Intravenous, ONCE PRN, 1 dose, Starting on Thu03/24/23 at 0623, Until Thu03/24/23 at 1108, Nausea - 1st line, PRE-OP (SURGERY) documented in this encounter Active and Recently Administered Medications Times are shown in ASSEMBLY OPERATOR. Continuous Medication Order 03/22/2023 03/23/2023 03/24/2023 lactated ringers infusion at 20 mL/hr, Intravenous, CONTINUOUS, Starting on Thu03/24/23 at 0700, Until Thu03/24/23 at 1108, PRE-OP (SURGERY) 0728 (New Bag - Prov ider: Karina Moreno, BETAHNY)0734 (Continued by Anesthesia - Provider: Raffaele Chance APRN, INDUSTRY ANALYST)0836 (Stopped - Provider: Felicitas Florentino RN) PRN Medication Order 03/22/2023 03/23/2023 03/24/2023 ondansetron (ZOFRAN) injection 4 mg 4 mg, Intravenous, ONCE PRN, 1 dose, Starting on Thu03/24/23 at 0623, Until Thu03/24/23 at 1108, Nausea - 1st line, PRE-OP (SURGERY) documented in this encounter Care Teams Electric Deicer Inspector Relationship Specialty Start Date End Date Janeth Pavon, [address] [place] [address] PCP - General Physician Transfusion Aide 06/22/18 Riddhi Bello APRN, STATISTICAL MODELER [address] [place] [address] Nurse Practitioner Advanced Practice Nurse 02/10/23 documented as of this encounter
--- OUTSIDE RECORDS SUMMARY | 2024-05-08 06:04 | XMS_ITS | Encounter Summary ---
Author Organization [facility] Address [address] [place] [address] Phone Care Team Providers Care Office Clerk Routine Name Role Phone Braydon Pavon Primary Care Provider [phone] Vikram Mora MD Unavailable [facility], [facility] Unavailable Reason for Visit * Reason Comments New Patient Diabetes Mellitus * Consult, Test & Initiate Treatment (Routine) - Closed Specialty Diagnoses / Procedures Referred By Contac t Referred To Contact Endocrinology Diagnoses Type 2 diabetes mellitus without complications Braydon Pavon, PAC [address] [place] [address] Phone: tel: fax: Vikram Mora MD [address] [address] Phone: tel: fax: Referral ID Status Reason Start Date Expiration Date Visits Re quested Visits Authorized [id number] Closed 1 1 Encounter Details Date Type Department Care Team (Late st Contact Info) Description 06/01/2023 8:00 AM CLERICAL SECRETARY Office Visit [facility] - Endocrinology - [place] [address] [place] [address] Vikram Mora MD [address] [address] (work) Type 2 diabetes mellitus [...] on file Legal Sex Male 10:58 AM CLERICAL SECRETARY Gender Identity Not on file Sexual Orientation Not on file documented as of this encounter Last Filed Vital Signs Vital Sign Reading Time Taken Comments Blood Pressure 98/74 06/01/2023 7:54 AM CLERICAL SECRETARY Pulse 85 06/01/2023 7:54 AM CLERICAL SECRETARY Temperature 37.1 ??C (98.7 ??F) 06/01/2023 7:54 AM CS T Respiratory Rate 16 06/01/2023 7:54 AM CLERICAL SECRETARY Oxygen Saturation 94% 06/01/2023 7:54 AM CLERICAL SECRETARY Inhaled Oxygen Concentration - - Weight 97.1 kg (214 lb) 06/01/2023 7:54 AM CLERICAL SECRETARY Height - - Body Mass Index 33.52 05/29/2023 11:22 AM CLERICAL SECRETARY documented in this encounter Patient Instructions * Patient Instructions* Vikram Mora MD - 06/01/2023 8:00 AM CLERICAL SECRETARY Please take Lantus 40 units at bedtime [...] 360 +11 UNITS ABOVE 361 +12 UNITS ICAL SECRETARY documented in this encounter Progress Notes * [...] severe low blood sugar event requiring third green party intervention. Unfortunately, the patient did not bring [...] SNARE, DIVERTICULOSIS; Surgeon: Ac Berger MD; Location: [facility]; Service: Gastroenterology ??? COLONOSCOPY W/ BIOPSY 2005 ??? EGD WITH BANDING ??? EGD WITH BANDING ??? TIPS PROCEDURE TIMES 2 ??? UPPER GASTROINTESTINAL ENDOSCOPY N/A 03/24/2023 Procedure: EGD-PORTAL HYPERTENSIVE GASTROPATHY, GRADE ONE ESOPHAGEAL VARCIES; Surgeon: Ac Berger MD; Location: [facility]; Service: Gastroenterology Social History [...] hemoglobin A1c is well above the patient's [place] [employer] treatmenttarget of less than 7%. [...] including pre-visit review of separately obtained history, [id number] interaction performing medically appropriate physical exam, patientcounseling/education, interpretation of diagnostic results, care coordination and documentation was47 minute Vikram Mora MD 06/01/2023 ICAL SECRETARY documented in this encounter Plan of Treatment [...] (HCC) documented in this encounter Care Teams Office Clerk Routine Relationship Specialty Start Date End Date Braydon Pavon PAC [address] [place] [id number] PCP - General Physician Gas Plumbing Inspector 06/22/18 Vikram Mora MD [address] [id number] Consulting Physician Endocrinology 05/21/23 Riddhi Bello APRN, VICE PRESIDENT OF INSTRUCTION [address] [place] [address] Nurse Practitioner Advanced Practice Nurse 02/10/23 documented as of this encounter
--- OUTSIDE RECORDS SUMMARY | 2024-05-08 06:04 | XMS_ITS | Encounter Summary ---
Author Organization [facility] Address [address] [place] [address] Phone Care Team Providers Care Supervisor Stitching Department Name Role Phone BebeabBraydon Primary Care Provider Riddhi Bello APRN, REGIONAL CLINICAL RESEARCH ASSOCIATE Unavailable Reason for Visit * Reason Onset Date Comments Appointment 05/20/2023 Encounter Details Date Type Department Care Team (Late st Contact Info) Description 05/20/2023 Telephone [facility] - Gastroenterology - [place] [address] [place] [address] Riddhi Bello APRN, REGIONAL CLINICAL RESEARCH ASSOCIATE [address] [place] [address] Appointment Social History Tobacco Use Types Packs/Day Years Used Date Smoking Tobacco: Former Cigarettes Q uit: 2002 Smokeless Tobacco: Never Alcohol Use Standard Drinks/Week Comments Not Currently 0 (1 standard drink = 0.6 oz pur e alcohol) Sexually Active Control Partners Comments Yes Female Sex and Gender Information Value Date Recorded Sex Assigned at Not on file Legal Sex Male 10:58 AM BED OPERATOR Gender Identity Not on file Sexual Orientation Not on file documented as of this encounter Miscellaneous Notes * Telephone Encounter - Brianna Sorenson RN - 05/20/2023 9:01 AM BED OPERATOR Spoke with patient. appt cancelled appt today 05/20/2023 due to provider is out of office. Offered to reschedule patient. He declined due to he reports he is going to the ER for abdominal pain that has been getting worse. Advised patient to call after seen in ER and appt can be r/s. Patient verbalized understanding. OPERATOR documented in this encounter Plan of Treatment Not on file documented as of this encounter Visit Diagnoses Not on filedocumented in this encounter Care Teams Supervisor Stitching Department Relationship Specialty Start Date End Date Braydon Pavon PAC [address] [place] [address] PCP - General Physician Diesel Dinkey Operator 06/22/18 Riddhi Bello APRN, REGIONAL CLINICAL RESEARCH ASSOCIATE [address] [place] [address] Nurse Practitioner Advanced Practice Nurse 02/10/23 documented as of this encounter
--- OUTSIDE RECORDS SUMMARY | 2024-05-08 06:04 | XMS_ITS | Encounter Summary ---
Author Organization [facility] Address [address] [place] [address] Phone Care Team Providers Care Mortgage Processing Clerk Name Role Phone BebeabBraydon Primary Care Provider [phone] Riddhi Bello APRN, NONDESTRUCTIVE TESTER Unavailable Reason for Visit * Reason Onset Date Comments Referral 05/12/2023 Encounter Details Date Type Department Care Team (Late st Contact Info) Description 05/12/2023 Telephone [facility] - Gastroenterology - [place] [address] [place] [address] Riddhi Bello APRN, NONDESTRUCTIVE TESTER [address] [place] [address] Referral Social History Tobacco Use Types Packs/Day Years Used Date Smoking Tobacco: Former Cigarettes Q uit: 2002 Smokeless Tobacco: Never Alcohol Use Standard Drinks/Week Comments Not Currently 0 (1 standard drink = 0.6 oz pur e alcohol) Sexually Active Control Partners Comments Yes Female Sex and Gender Information Value Date Recorded Sex Assigned at Not on file Legal Sex Male 10:58 AM ELASTIC YARN TWISTER Gender Identity Not on file Sexual Orientation Not on file documented as of this encounter Miscellaneous Notes * Telephone Encounter - Brianna Sorenson RN - 05/12/2023 4:15 PM ELASTIC YARN TWISTER Patient called office and reported that he called the nephrology office at [facility] and they said thereferral got denied due to patient should see urology. If his creatnine was elevated he could see nephrology. Patient has an appt on 05/18/2023 with provider. Please advise. TIC YARN TWISTER documented in this encounter Plan of Treatment Not on file documented as of this encounter Visit Diagnoses Not on filedocumented in this encounter Care Teams Mortgage Processing Clerk Relationship Specialty Start Date End Date Braydon Pavon PAC [address] [place] [address] PCP - General Physician Fence Post Cutter 06/22/18 Riddhi Bello APRN, NONDESTRUCTIVE TESTER [address] [place] [address] Nurse Practitioner Advanced Practice Nurse 02/10/23 documented as of this encounter
--- OUTSIDE RECORDS SUMMARY | 2024-05-08 06:04 | XMS_ITS | Encounter Summary ---
Author Organization [facility] Address [address] [place] [address] Phone Care Team Providers Care Geography Head Name Role Phone Braydon Pavon Primary Care Provider Riddhi Bello APRN, HAULING CONTRACTOR Unavailable Reason for Visit * Reason Onset Date Comments Results 03/03/2023 Encounter Details Date Type Department Care Team (Late st Contact Info) Description 03/03/2023 Telephone [facility] - Gastroenterology - [place] [address] [place] [address] Riddhi Bello APRN, HAULING CONTRACTOR [address] [place] [address] Results Social History Tobacco Use Types Packs/Day Years Used Date Smoking Tobacco: Former Cigarettes Q uit: 2002 Smokeless Tobacco: Never Alcohol Use Standard Drinks/Week Comments Not Currently 0 (1 standard drink = 0.6 oz pur e alcohol) Sexually Active Control Partners Comments Yes Female Sex and Gender Information Value Date Recorded Sex Assigned at Not on file Legal Sex Male 10:58 AM INSTRUCTIONAL INTERVENTIONIST Gender Identity Not on file Sexual Orientation Not on file COVID-19 Exposure Response Date Recorded In the last 10 days, have yo u been in contact with someone who was confirmed or suspected to have Coronavirus/COVID-19? No / Unsure 02/26/2023 8:15 AM CDT documented as of this encounter Miscellaneous Notes * Telephone Encounter - Chinle, Brianna A, RN - 03/03/2023 1:57 PM CDT Patient is aware and verbalizes understanding. Patient wanted to update provider that the pain clinic placed him on norco 7.5 mg po tid due to [id number] is too high for injections. They are working on getting his blood sugars down so he can go offthe norco and get injections. He stated the pain doctor knows patient has a hx of cirrhosis. Analisa Bello ART CONSULTANT updated. * Telephone Encounter - Brianna Sorenson [...] on filedocumented in this encounter Care Teams Geography Head Relationship Specialty Start Date End Date Braydon Pavon PAC [address] [place] [id number] PCP - General Physician Supervisor Machining 06/22/18 Riddhi Bello APRN, HAULING CONTRACTOR [address] [place] [address] Nurse Practitioner Advanced Practice Nurse 02/10/23 documented as of this encounter
--- OUTSIDE RECORDS SUMMARY | 2024-05-08 06:04 | XMS_ITS | Encounter Summary ---
Author Organization [facility] Address [address] [place] [address] Phone Care Team Providers Care Pet Handler Name Role Phone Braydon Pavon Kunal NEAL Primary Care Provider [phone] Riddhi Bello APRN, PUNCH PRESS OPERATOR Unavailable Reason for Visit * Reason Comments Abdominal Pain Encounter Details Date Type Department Care Team (Late st Contact Info) Description 05/20/2023 10:31 AM STITCHER OPERATOR - 05/20/2023 3:42 PM STITCHER OPERATOR Emergency [facility] Emergency [address] [place] [address] Holly Sandy APRN, PUNCH PRESS OPERATOR [address] [place] [address] Cholelithiasis Discharge Disposition: Discharged to home or [...] on file Legal Sex Male 10:58 AM STITCHER OPERATOR Gender Identity Not on file Sexual Orientation Not on file documented as of this encounter Last Filed Vital Signs Vital Sign Reading Time Taken Comments Blood Pressure 109/69 05/20/2023 3:30 PM STITCHER OPERATOR Pulse 85 05/20/2023 3:30 PM STITCHER OPERATOR Temperature 36.7 ??C (98.1 ??F) 05/20/2023 10:[address] Respiratory Rate 14 05/20/2023 10:32 AM STITCHER OPERATOR Oxygen Saturation 98% 05/20/2023 3:30 PM STITCHER OPERATOR Inhaled Oxygen Concentration - - Weight 95.8 kg (211 lb 3.2 oz) 05/20/2023 10:32 AM STITCHER OPERATOR Height 170.2 cm (5' 7 ) 05/20/2023 10:32 AM STITCHER OPERATOR Body Mass Index 33.08 05/20/2023 10:32 AM STITCHER OPERATOR documented in this encounter Discharge Instructions * Discharge Instructions* Holly Sandy APRN, CNP - 05/20/2023 3:24 PM STITCHER OPERATOR Please follow-up with mechanical oxidizer and GI specialist as soon as possible. Return to the ED immediately with worsening symptoms. CHER OPERATOR * Attachments The following attachments cannot be sent through Care Everywhere. * Gastroesophageal Reflux Disease Adult Gocy-ui-Fyqr (Moroccan) * Cirrhosis (Moroccan) * Esophageal Varices (Moroccan) documented in this encounter Medications at Time of Discharge albuterol 108 (90 Base) MCG/ACT Aerosol Solution every 4 hours as needed. 02/02/2023 ALPRAZolam (XANAX) 1 MG Tablet Take by mouth as needed. carvedilol (COREG) 3.125 MG Tablet Take 1 Tablet by mouth 2 times daily. 180 Tablet 3 02/17/2023 ergocalciferol (VITAMIN D) 46492 UNIT Capsule Take 50,000 Units by mouth. [...] Subcutaneous route. 11/07/2020 Insulin Pen Needle (Pen Montgomery) 32G X 4 MM Misc Inject 3 [...] as responsible constitution party. SL D/C'ed with Ruiel cath intact. CHER OPERATOR * Lelia Alicea RN - 05/20/2023 2:30 PM CST Patient's SpO2 noted to be in the mid 70s-80s on room air while sleeping; placed on 2L/NC. Reports he is to have a sleep study soon to officially diagnose his sleep apnea. Evelio Sandy APRN made aware. Patient reports relief from Fentanyl and denies nausea. CHER OPERATOR * Lelia Alicea RN - 05/20/2023 2:06 PM CST Pt medicated per provider orders. Pt educated on intended effects and side effects of medication and verbalized understanding, able to provide teach back of education. CHER OPERATOR * Lelia Alicea RN - 05/20/2023 1:23 PM CST Report received from BETHANY Adan. CHER OPERATOR * Abigail Amaro RN - 05/20/2023 12:49 PM CST Pt ambulatory to restroom. CHER OPERATOR * Danielle Duckworth RN - 05/20/2023 12:32 [...] at this time. Provider aware of event. CHER OPERATOR * Antionette Brock RN - 05/20/2023 12:10 PM CST Pt medicated per provider orders. Pt educated on intended effects and side effects of medication and verbalized understanding, able to provide teach back of education. Call light in reach. CHER OPERATOR * Abigail Amaro RN - 05/20/2023 11:07 AM CST Pt medicated per provider orders. Pt educated on intended effects and side effects of medication and verbalized understanding, able to provide teach back of education. CHER OPERATOR * Holly Sandy APRN, PUNCH PRESS OPERATOR - 05/20/2023 11:06 AM CST Chief Complaint [...] 180 Tablet 3 ??? ergocalciferol (VITAMIN D) 85293 UNIT Capsule Take 50,000 Units by mouth. [...] Subcutaneous route. ??? Insulin Pen Needle (Pen Montgomery) 32G X 4 MM Misc Inject 3 [...] SNARE, DIVERTICULOSIS; Surgeon: Ac Berger MD; Location: [facility]; Service: Gastroenterology ??? COLONOSCOPY W/ BIOPSY 2005 ??? EGD WITH BANDING ??? EGD WITH BANDING ??? TIPS PROCEDURE TIMES 2 ??? UPPER GASTROINTESTINAL ENDOSCOPY N/A 03/24/2023 Procedure: EGD-PORTAL HYPERTENSIVE GASTROPATHY, GRADE ONE ESOPHAGEAL VARCIES; Surgeon: Ac Berger MD; Location: [facility]; Service: Gastroenterology Social History Socioeconomic [...] 05/20/2023 11:49 AM - Electronically signed by Geermias Chamberlain M.D. AG: SHIELA Report ID: [id number] Reading Location: [place] [address] Labs Reviewed CMP (COMPREHENSIVE METABOLIC PANEL) - [...] Abnormality Status --------- ------ CBC with Auto Differential[[id number]] Abnormal Final result Please view results for these tests on the individual orders. EXTRA TUBES Narrative: The following orders were created for panel order Extra Tubes. Procedure Abnormality Status --------- ------ Blue Top Tube[[id number]] Final result Gold Top Tube[[id number]] Final result Please view results for these [...] findings. Patient was advised to follow-up with mechanical oxidizer and GI specialist as soon as possible. Advised to return to the ED immediately with worsening symptoms. Advised he would benefit from tips Doppler. Attempted to order this through the ED but was notified by configuration technician that it would not be a [...] Lukas Page MD at 05/22/2023 6:00 AM STITCHER OPERATOR CHER OPERATOR CHER OPERATOR * Danielle Duckworth RN - 05/20/2023 10:34 [...] history of diabetes, BLAND, and liver cirrhosis. CHER OPERATOR documented in this encounter Plan of Treatment Not on file documented as of this encounter Procedures Procedure Name Priority Date/Time Associated Diagnosis Comments POCT GLUCOSE STAT 05/20/2023 12:52 PM STITCHER OPERATOR TROPONIN I, HIGH SENSITIVITY (HSTRP) STAT 05/20/2023 12:[address] ABDOMEN PELVIS W/O CONTRAST Stat with Interpretation 05/20/2023 11:30 AM STITCHER OPERATOR EKG 12 LEAD STAT 05/20/2023 11:01 AM STITCHER OPERATOR EXTRA TUBES STAT 05/20/2023 10:44 AM STITCHER OPERATOR HEMOGLOBIN A1C W/ ESTIMATED GLUCOSE STAT 05/20/2023 10:44 AM STITCHER OPERATOR TROPONIN I, HIGH SENSITIVITY (HSTRP) STAT 05/20/2023 10:44 AM STITCHER OPERATOR GOLD TOP TUBE STAT 05/20/2023 10:44 AM STITCHER OPERATOR BLUE TOP TUBE STAT 05/20/2023 10:44 AM STITCHER OPERATOR CBC WITH AUTO DIFFERENTIAL STAT 05/20/2023 10:44 AM STITCHER OPERATOR MAGNESIUM (MG) STAT 05/20/2023 10:44 AM STITCHER OPERATOR LIPASE STAT 05/20/2023 10:44 AM STITCHER OPERATOR CMP (COMPREHENSIVE METABOLIC PANEL) STAT 05/20/2023 10:44 AM STITCHER OPERATOR COMPLETE BLOOD COUNT (CBC) WITH DIFF STAT 05/20/2023 10:44 AM STITCHER OPERATOR TEST FOR ACETONE/KETONES STAT 05/20/2023 10:44 AM STITCHER OPERATOR URINALYSIS REFLEX IF INDICATED BY ABNORMAL RESULTS STAT 05/20/2023 10:40 AM STITCHER OPERATOR EKG SCAN 05/20/2023 12:00 AM STITCHER OPERATOR documented in this encounter Results * (ABNORMAL) POCT Glucose (05/20/2023 12:52 PM STITCHER OPERATOR) [facility] GLUCOSE,BEDSID E POCT 336(H) 70 - 99 mg/dL 05/20/2023 12:59 PM STITCHER OPERATOR [facility] Comment: Patient RN Performed HOLLY SANDY Blood 05/20/2023 12:5 2 PM STITCHER OPERATOR 05/20/2023 12:59 PM STITCHER OPERATOR us None Provider POINT OF CARE TESTING Final Resu lt Performing Organization Address City/[facility]/ZIP Co de Phone Number [facility] [address] [place] [address] * TROPONIN I, HIGH SENSITIVITY (HSTRP) (05/20/2023 12:45 PM STITCHER OPERATOR) Only the most recent of2 resultswithin the time period is included. [facility] TROPONIN I, HIGH SENSITIVITY- [place] <3 <=35 ng/L 05/20/2023 1:33 PM STITCHER OPERATOR [facility] Comment: High-sensitivity troponin I results are reported in ng/L making the result appear to be 1,000 times higher than the contemporary troponin I value which is reported in ng/ml. Results from [place]. Blood Venipuncture / Unknown 05/20/2023 12:45 PM STITCHER OPERATOR 05/20/2023 1:01 PM STITCHER OPERATOR us Holly Sandy BULL RIVETER, PUNCH PRESS OPERATOR CHEMISTRY ORDERABLES Final Result Performing Organization Address City/[facility]/ZIP Co de Phone Number [facility] [address] [place] [address] * CT ABDOMEN PELVIS W/O CONTRAST (05/20/2023 11:30 AM STITCHER OPERATOR) Anatomical Region Laterality Modality Abdomen N/A Computed Tomogra phy 05/20/2023 11:4 9 AM STITCHER OPERATOR Impressions 05/20/2023 11:52 AM STITCHER OPERATOR IMPRESSION: ?? 1. ?? Subtle peripancreatic stranding. [...] attention on follow-up. Narrative 05/20/2023 11:52 AM STITCHER OPERATOR EXAM DESCRIPTION: ?? CT ABDOMEN PELVIS W/O [...] AM T: ??05/20/2023 11:49 AM Report ID: [id number] Reading Location: ??[id number] Procedure Note Geremias Chamberlain MD - 05/20/2023 [...] Geremias Chamberlain M.D. AG: SHIELA Report ID: [id number] Reading Location: [place] [address] IMPRESSION: 1. Subtle peripancreatic stranding. This could [...] * EKG 12 LEAD (05/20/2023 11:01 AM STITCHER OPERATOR) Ventricular Rate 87 BPM EXTERNAL EKG Atrial Rate 87 BPM EXTERNAL EKG P-R Interval 170 ms EXTERNAL EKG QRS Duration 82 ms EXTERNAL EKG Q-T Duration 370 ms EXTERNAL EKG QTC CALCULATION 445 ms EXTERNAL EKG P [place] 52 degrees EXTERNAL EKG R [place] 41 degrees EXTERNAL EKG T [place] 40 degrees EXTERNAL EKG 05/20/2023 11:0 1 AM STITCHER OPERATOR Impressions EXTERNAL EKG - 05/25/2023 8:57 PM STITCHER OPERATOR Normal sinus rhythm Normal ECG No previous ECGs available Confirmed by Amol Gunn ([id number]) on 05/25/2023 8:57:21 PM Narrative Procedure Note Amol Gunn MD PhD - 05/25/2023 IMPRESSION: Normal sinus rhythm Normal ECG No previous ECGs available Confirmed by Amol Gunn ([id number]) on 05/25/2023 8:57:21 PM Holly Sandy APRN, PUNCH PRESS OPERATOR IMG ECG ORDERABLES nal Result EXTERNAL EKG * (ABNORMAL) Hemoglobin A1C (05/20/2023 10:44 AM STITCHER OPERATOR) Pathologist [facility] HGB-A1C 11.6(H) 4.0 - 6.0 % 05/20/2023 12:30 PM STITCHER OPERATOR [facility] Est Average Glucose 286.2 mg/dL 05/20/2023 12:30 PM STITCHER OPERATOR [facility] Blood Venipuncture / Unknown 05/20/2023 10:44 AM STITCHER OPERATOR 05/20/2023 11:01 AM STITCHER OPERATOR Narrative [facility] - 05/20/2023 12:30 PM STITCHER OPERATOR HEMOGLOBIN A1C: DIABETIC PATIENTS: WELL-CONTROLLED: ?? 6.2 - 7.0 INTERMEDIATE WELL-CONTROLLED: ??7.0 - 9.0 POORLY-CONTROLLED: ??>9.0 us Holly Sandy BULL RIVETER, PUNCH PRESS OPERATOR CHEMISTRY ORDERABLES Final Result [facility] [address] [place] [address] * Acetone/Ketones Qualitative-Blood (05/20/2023 10:44 AM STITCHER OPERATOR) ACETONE Negative Negative 05/20/2023 12:35 PM STITCHER OPERATOR [facility] Blood No Phlebotomy Charged / Unknown 05/20/2023 10:44 AM STITCHER OPERATOR 05/20/2023 11:03 AM STITCHER OPERATOR us Holly Sandy BULL RIVETER, PUNCH PRESS OPERATOR CHEMISTRY ORDERABLES Final Result Performing Organization Address City/[facility] Co de Phone Number [facility] [address] [place] [address] * Magnesium (Mg) (05/20/2023 10:44 AM STITCHER OPERATOR) MAGNESIUM 1.8 1.6 - 2.6 mg/dL 05/20/2023 12:32 PM STITCHER OPERATOR [facility] Blood Venipuncture / Unknown 05/20/2023 10:44 AM STITCHER OPERATOR 05/20/2023 11:01 AM STITCHER OPERATOR us Holly Sandy BULL RIVETER, PUNCH PRESS OPERATOR CHEMISTRY ORDERABLES Final Result Performing Organization Address City/[facility]/ZIP Co de Phone Number [facility] [address] [place] [address] * Gold Top Tube (05/20/2023 10:44 AM STITCHER OPERATOR) Blood No Phlebotomy Charged / Unknown 05/20/2023 10:44 AM STITCHER OPERATOR 05/20/2023 11:03 AM STITCHER OPERATOR us Holly Sandy APRN, DOROTHY CHEMISTRY ORDERABLES Final Result Performing Organization Address [facility] Co de Phone Number [facility] [address] [place] [address] * Blue Top Tube (05/20/2023 10:44 AM STITCHER OPERATOR) Blood No Phlebotomy Charged / Unknown 05/20/2023 10:44 AM STITCHER OPERATOR 05/20/2023 11:03 AM STITCHER OPERATOR us Holly Sandy APRN, PUNCH PRESS OPERATOR HEMATOLOGY ORDERABLES Final Result Performing Organization Address [facility] de Phone Number [facility] [address] [place] [address] * (ABNORMAL) CBC with Auto Differential (05/20/2023 10:44 AM STITCHER OPERATOR) WBC 3.71(L) 4.00 - 12.00 10(3)/mcL 05/20/2023 11:44 AM STITCHER OPERATOR [facility] RBC 5.79 4.40 - 5.80 10(6)/mcL 05/20/2023 11:44 AM STITCHER OPERATOR [facility] HEMOGLOBIN (HGB) 14.0 13.0 - 16.5 g/dL 05/20/2023 11:44 AM STITCHER OPERATOR [facility] HEMATOCRIT (HCT) 43.4 38.0 - 50.0 % 05/20/2023 11:44 AM STITCHER OPERATOR [facility] MCV 75.0(L) 82.0 - 96.0 fL 05/20/2023 11:44 AM STITCHER OPERATOR [facility] MCH 24.2(L) 26.0 - 32.0 pg 05/20/2023 11:44 AM STITCHER OPERATOR [facility] MCHC 32.3 31.0 - 36.0 g/dL 05/20/2023 11:44 AM STITCHER OPERATOR [facility] PLATELET COUNT 98(L) 140 - 440 10(3)/mcL 05/20/2023 11:44 AM STITCHER OPERATOR [facility] RDW 16.8(H) 11.8 - 15.5 % 05/20/2023 11:44 AM STITCHER OPERATOR [facility] MPV 10.4 8.0 - 12.6 fL 05/20/2023 11:44 AM STITCHER OPERATOR [facility] NRBC PER 100 WBC 0 05/20/2023 11:44 AM STITCHER OPERATOR [facility] Blood Venipuncture / Unknown 05/20/2023 10:44 AM STITCHER OPERATOR 05/20/2023 11:01 AM STITCHER OPERATOR us Holly Sandy APRN, PUNCH PRESS OPERATOR HEMATOLOGY ORDERABLES Final Result Performing Organization Address City/[facility]/ZIP Co de Phone Number [facility] [address] [place] [address] * Lipase (05/20/2023 10:44 AM STITCHER OPERATOR) LIPASE 44 8 - 78 U/L 05/20/2023 11:28 AM STITCHER OPERATOR [facility] Blood Venipuncture / Unknown 05/20/2023 10:44 AM STITCHER OPERATOR 05/20/2023 11:01 AM STITCHER OPERATOR us Holly Sandy BULL RIVETER, PUNCH PRESS OPERATOR CHEMISTRY ORDERABLES Final Result [facility] [address] [place] [address] * (ABNORMAL) CMP (05/20/2023 10:44 AM STITCHER OPERATOR) SODIUM 129(L) 136 - 145 mmol/L 05/20/2023 11:33 AM STITCHER OPERATOR [facility] POTASSIUM 4.2 3.5 - 5.1 mmol/L 05/20/2023 11:33 AM [facility] CHLORIDE 98 98 - 107 mmol/L 05/20/2023 11:33 AM [facility] CO2, VENOUS 23 22 - 30 mmol/L 05/20/2023 11:33 AM [facility] ANION GAP 12.2 <18.0 mmol/L 05/20/2023 11:33 AM [facility] GLUCOSE 517(HH) 70 - 99 mg/dL 05/20/2023 11:33 AM [facility] BUN 13 8 - 26 mg/dL 05/20/2023 11:33 AM [facility] CREATININE, BLOOD 0.92 0.70 - 1.30 mg/dL 05/20/2023 11:33 AM [facility] BUN/CREATININE RATIO 14 12 - 20 ratio 05/20/2023 11:33 AM [facility] TOTAL PROTEIN 6.7 6.3 - 8.2 g/dL 05/20/2023 11:33 AM [facility] ALBUMIN 3.5 3.5 - 5.0 g/dL 05/20/2023 11:33 AM [facility] A/G RATIO 1.1 1.0 - 2.2 05/20/2023 11:33 AM [facility] CALCIUM 9.3 8.7 - 10.5 mg/dL 05/20/2023 11:33 AM [facility] T BILI 2.2(H) 0.2 - 1.2 mg/dL 05/20/2023 11:33 AM [facility] SGOT (AST) 26 5 - 34 U/L 05/20/2023 11:33 AM [facility] SGPT (ALT) 20 0 - 55 U/L 05/20/2023 11:33 AM [facility] ALKALINE PHOSPHATASE 89 40 - 150 U/L 05/20/2023 11:33 AM [facility] GFR, ESTIMATED >60 >=60 05/20/2023 11:33 AM [facility] Comment: Creatinine Clearance is the preferred criteria for selecting drug dose adjustments in renally impaired patients. ??The GFR is provided as additional pertinent clinical information. GFR is reported in mL/min/1.73 sq m. Calculation based on the Chronic Kidney Disease Epidemiology Collaboration (CKD- EPI) equation refit without adjustment for race. GFR, EST. >60 >=60 024 11:33 AM STITCHER OPERATOR [facility] GFR, EST. NONAFRICAN >60 >=60 05/20/2023 11:33 AM STITCHER OPERATOR [facility] Blood Venipuncture / Unknown 05/20/2023 10:44 AM STITCHER OPERATOR 05/20/2023 11:01 AM STITCHER OPERATOR Holly Sandy BULL RIVETER, PUNCH PRESS OPERATOR CHEMISTRY ORDERABLES Final Result [facility] [address] [place] [address] * (ABNORMAL) Urinalysis w/ Reflex (05/20/2023 10:40 AM STITCHER OPERATOR) SPECIFIC GRAVITY 1.010 1.003 - 1.030 05/20/2023 11:44 AM STITCHER OPERATOR [facility] URINE PH 5.0 5.0 - 9.0 05/20/2023 11:44 AM [facility] WBC ESTERASE Negative Negative 05/20/2023 11:44 AM STITCHER OPERATOR [facility] NITRITE Negative Negative 05/20/2023 11:44 AM STITCHER OPERATOR [facility] PROTEIN, RANDOM URINE Negative Negative 05/20/2023 11:44 AM STITCHER OPERATOR [facility] URINE GLUCOSE, QUAL 1000 mg/dL(A) Negative 05/20/2023 11:44 AM [facility] URINE KETONES Negative Negative 05/20/2023 11:44 AM [facility] UROBILINOGEN Normal Normal mg/dL 05/20/2023 11:44 AM STITCHER OPERATOR [facility] URINE BLOOD Negative Negative kristan/ul 05/20/2023 11:44 AM STITCHER OPERATOR [facility] URINALYSIS COLOR Yellow 05/20/19 11:44 AM STITCHER OPERATOR [facility] URINALYSIS CLARITY Clear 05/20/2023 11:44 AM STITCHER OPERATOR [facility] Urine URINE SPECIMEN / Unknown Non-Phlebotomy Collection / Unknown 05/20/2023 10:40 AM STITCHER OPERATOR 05/20/2023 11:03 AM STITCHER OPERATOR us Holly Sandy BULL RIVETER, PUNCH PRESS OPERATOR URINE ORDERABLES Anastasiya l Result [facility] [address] [place] [address] * EKG SCAN (05/20/2023 12:00 AM STITCHER OPERATOR) 05/20/2023 us Provider Scan IMG ECG ORDERABLES [...] at 1130 New Bag 05/20/2023 11:06 AM STITCHER OPERATOR 1,000 mL 999 mL/hr dextrose 50 % [...] Thu05/20/23 at 1400 Given 05/20/2023 2:05 PM STITCHER OPERATOR 75 mcg Glucagon Emergency injection KIT 1 [...] Saline after administration. Given 05/20/2023 12:08 PM STITCHER OPERATOR 9.5 Units metoclopramide (REGLAN) injection 10 mg 10 mg, Intravenous, ONCE, 1 dose, On Thu05/20/23 at 1400 Given 05/20/2023 2:05 PM STITCHER OPERATOR 10 mg morphine sulfate (PF) injection 4 mg 4 mg, Intravenous, ONCE, 1 dose, On Thu05/20/23 at 1130 Given 05/20/2023 11:06 AM STITCHER OPERATOR 4 mg ondansetron (ZOFRAN) injection 4 mg 4 mg, Intravenous, ONCE, 1 dose, On Thu05/20/23 at 1130 Given 05/20/2023 11:06 AM STITCHER OPERATOR 4 mg pantoprazole (PROTONIX) injection 40 mg 40 mg, Intravenous, ONCE, 1 dose, On Thu05/20/23 at 1400, Administer over 3 Minutes, Indications: Symptomatic Gastroesophageal Reflux DiseaseIndications:Symptomatic Gastroesophageal Reflux Disease Given 05/20/2023 2:05 PM STITCHER OPERATOR 40 mg documented in this encounter Active and Recently Administered Medications Times are shown in STITCHER OPERATOR. Scheduled Medication Order 05/18/2023 05/19/2023 05/20/2023 0.9 [...] sugar documented in this encounter Care Teams Pet Handler Relationship Specialty Start Date End Date Braydon Pavon, [address] [place] [address] PCP - General Physician Geospatial Developer 06/22/18 Riddhi Bello APRN, PUNCH PRESS OPERATOR [address] [place] [address] Nurse Practitioner Advanced Practice Nurse 02/10/23 documented as of this encounter
--- OUTSIDE RECORDS SUMMARY | 2024-05-08 06:04 | XMS_ITS | Encounter Summary ---
Author Organization [employer] Care Team Providers Care Computer Engineer Name Role Phone Braydon Pavon Primary Care Provider [phone] Riddhi Bello APRN, AGRICULTURAL CONSULTANT Unavailable Encounter Details Date Type Department Care [...] on file Legal Sex Male 10:58 AM PACKAGING SALES Gender Identity Not on file Sexual Orientation [...] filedocumented in this encounter Care Teams Computer Engineer Relationship Specialty Start Date End Date Braydon Pavon PAC [address] [place] [address] PCP - General Physician Hris Administrator 06/22/18 Riddhi Bello APRN, AGRICULTURAL CONSULTANT [address] [place] [address] Nurse Practitioner Advanced Practice Nurse 02/10/23 documented as of this encounter
--- OUTSIDE RECORDS SUMMARY | 2024-05-08 06:07 | XMS_ITS | Clinical Summary ---
Author Organization [facility] Address [address] [place] [address] Care Team Providers Care Director Community Center Name Role Phone Nacho Rodriguez MD Unavailable [phone] Elian Gross MD Unavailable Braydon Pavon Primary Care Provider [phone] Allergies Active Allergy Reactions Criticality Noted Date [...] 1 each 05/21/19 22 Active Dexcom G6 Technical Aid misc 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 Use to [...] 05/20/2021 Assessment & Plan (05/22/2021 3:58 PM METALIZING SUPERVISOR): A initial well visit to establish care [...] unless otherwise indicated. Need follow-up arranged with zoogler, golf course patroller Planning on referral to paint striping machine operator Will need to check in to the tips follow-up Labs as ordered today, I will direct the A1 c to his golf course patroller's office. Continuing the current regimen for now. Blood pressure is controlled at this time. We may need to try to get the stress test done as well. Screen for colon cancer 03/01/2021 Overview (03/01/2021): Added automatically from request for surgery [id number] Diabetic neuropathy associat ed with type 2 diabetes mellitus ([facility]) 10/29/2020 Assessment & Plan (10/29/2020 4:23 PM CDT): Chronic, worsening Start, gabapentin therapy Work on better diabetic control Vitamin D deficiency 10/29/2020 Assessment & Plan (10/29/2020 4:23 PM CDT): Check labs and based on that for the plans Bacterial endocarditis 05/14/2020 Assessment & Plan (05/14/2020 11:09 AM METALIZING SUPERVISOR): Unfortunately the patient's records from [place] are not available for my review. We [...] 05/14/2020 Assessment & Plan (05/14/2020 11:11 AM METALIZING SUPERVISOR): The patient's dyspnea on exertion is likely [...] weekly - start checking blood sugars Using Nov[employer]Tri[employer] nikki 2 sensors - work on portion control diet, exercise every day - Get eye exam soon - do labs - fasting - follow up in 6 weeks with MANAGER SALES SUPPORT Chelsea Driscoll ( to discuss about insulin [...] resume home regimen and follow-up with home golf course patroller MATHEUS pain 10/11/2017 Morbid obesity 12/09/2016 TRACY [...] Date Smoking Tobacco: Former Cigarettes Q uit: 2003 Smokeless Tobacco: Never Alcohol Use Standard Drinks/Week [...] on file Legal Sex Male 2:52 PM METALIZING SUPERVISOR Gender Identity Male 10/29/2020 12:37 PM [...] 10/29/2021 10/29/2020 Albumin Creatinine Ratio, Urine 05/20/2022 2 Depression Screening 05/20/2022 05/20/2021, 05/20/2021, 10/29/2020 Lipid Panel 05/20/2022 05/20/2021, 08/03, 11/07/2015 Covid-19 Vaccine (3 - 2023-2 5 season) 2024 12/29/2020, 12/08/2020 Influenza Vaccine (#1) 2024 Hemoglobin A1C 05/25/2024 11/23/2023, 11/02, 05/20/2021, Additional history exists eGFR 01/18/2025 01/19/2024, 11/02, 05/20/2021, Additional history exists Colon Cancer Screening-Colonoscopy 12/17/20302020 Hepatitis C Screening Completed 08/23/2015 Medical Devices Implanted Type Area Alumni Relations Coordinator Device Identifier Shelf Expiration Date Model / Serial / Lot Bard Peripheral Vascular [id number] Lifestar 14mm 60mm 80cm Stent Biliary - [id number] Implanted:Qty: 1 on 01/10/2021 at [facility] [employer] Peripheral Vascular 09/15/2023 [id number] / / [id number] Procedures Procedure Name Priority Date/Time Associated Diagnosis Comments EGFR STAT 01/19/2024 10:31 PM CDT HEMOGLOBIN A1C STAT 11/23/2023 8:40 AM CDT LIPID PANEL Routine 05/20/2021 9:36 AM METALIZING SUPERVISOR Morbid obesity with body mass index (BMI) of 40.0 to 44.9 in adult (HCC) ALBUMIN CREATININE RATIO, URINE Routine 05/20/2021 9:36 AM METALIZING SUPERVISOR Diabetic neuropathy associated with type 2 diabetes mellitus (CMS/HCC) (HCC) COLONOSCOPY 12/17/2020 10:24 AM CDT SERUM HEPATITIS PANEL Routine 08/23/2015 5:23 PM CDT from Last 3 Months or Most Recently Relevant to Health Maintenance Results * eGFR (01/19/2024 10:31 PM CDT) eGFR [...] Pace MD LAB BLOOD ORDERABLES Final Result [facility] [address] [facility]. Department [place] [address] * (ABNORMAL) Hemoglobin A1c (11/23/2023 8:40 AM CDT) Hgb A1C 10.0(H) 4.0 - 5.6 % Estimated Average Glucose 240 mg/dL MOHINDER MICHEL Comment: The ADA recommends reporting an estimated Average Glucose (eAG) with all Hemoglobin A1c results using the equation derived from a study of 507 normal and diabetic adults. ??Minority populations were underrepresented and children were not included. ?? (Diabetes Care 2020; 43(S1): S66-S76). ??The eAG is not equivalent to a fasting glucose. Blood 11/23/2023 8:40 AM CDT 11/23/2023 8:56 AM CDT us Stephen Buckner MD LAB BLOOD ORDERABLES Fi nal Result Performing Organization Address City/[facility] Co de Phone Number MOHINDER MICHELH [facility] Department [place] [address] * Albumin Creatinine Ratio, Urine (05/20/2021 9:36 AM METALIZING SUPERVISOR) Albumin Ur <12.0 mg/L MOHINDER MARTINEZ Comment: Interpretive Data No reference range established. Current interpretive data was last revised 2018. Creatinine Ur 47.6 mg/dL MOHINDER Comment: Interpretive Data No reference range established. Current interpretive data was last revised 2018. Albumin Creatinine Ratio, Ur <25 1 - 29 mg/g MOHINDER Urine 05/20/2021 9:36 AM METALIZING SUPERVISOR 05/20/2021 7:41 PM METALIZING SUPERVISOR Simon Lundberg MD LAB URINE ORDERABLES Final Result Performing Organization Address [facility] de Phone Number MOHINDER [address] [facility] Department [place] [address] * (ABNORMAL) Lipid panel (05/20/2021 9:36 AM METALIZING SUPERVISOR) Cholesterol 110 30 - 199 mg/dL MOHINDER [...] ratio 3 MOHINDER Blood 05/20/2021 9:36 AM METALIZING SUPERVISOR 05/20/2021 7:41 PM METALIZING SUPERVISOR Simon Lundberg MD LAB BLOOD ORDERABLES Final Result MOHINDER [address] [address] Department [place] [address] * COLONOSCOPY (12/17/2020 10:24 AM CDT) Anatomical Region Laterality Modality Other Narrative Procedure Note Elian Gross MD - 12/17/2020 10:24 AM CDT ENDOSCOPY LAB Patient Name: Camilo Curry Procedure Date: 12/17/2020 10:24 AM Date of : 1970 Admit Type: Outpatient Age: 50 Gender: Male Attending MD: Elian Vivar M.D. Room: [facility] ENDOSCOPY ROOM 02 Note Status: Finalized [...] the physician, the nurse, the anesthesiologist, the author agent and thetechnician in the pre-procedure area in [...] The scope was passed under direct vision.The [id number] was introduced through the anusand advanced to the hepatic flexure. The colonoscopywas performed without difficulty. The patient tolerated the procedure well. The quality of the bowel preparation was unsatisfactory. The quality of the bowel preparation was evaluated using the BBPS(Aurora Bowel Preparation Scale) with scores of: RightColon [...] 10:24 AM us Elian Draper MD ENDOSCOPY CO OCEDURES Final Result * Serum Hepatitis panel (08/23/2015 5:23 PM CDT) HBV surface ag Negative NEG HISTO RICAL RESULTS HCV ab Negative NEG HISTORICAL RESULTS Comment: Interpretive Data If confirmation is required, call Laboratory Customer Service to request sample to be sent to [facility] for Hepatitis C Virus (HCV) RNA Detection and Quantitation by Real-Time Reverse Bitumen Plant Operator-PCR (RT-PCR). Current interpretive data was last revised [...] Recently Relevant to Health Maintenance [place] Advance Directives For more information, please contact: [phone] * Full Code (Latest Code Status on [...] 11:57 AM 02/03/2018 5:26 AM Care Teams Director Community Center Relationship Specialty Start Date End Date Braydon Pavon PA [address] [place] [address] PCP - General 08/23/21 [place] [address] [address] [address] Consulting Physician Endocrinology 05/20/21 [place] [address] [address] [address] Consulting Physician Internal Medicine 05/20/21
--- OUTSIDE RECORDS SUMMARY | 2024-05-08 06:07 | XMS_ITS | Referral Summary ---
Author Organization [facility] Address [address] [place] [address] Care Team Providers Care Transport Company Manager Name Role Phone Nacho Rodriguez MD Unavailable [phone] Elian Gross MD Unavailable Braydon Pavon Primary Care Provider [phone] Allergies Active Allergy Reactions Criticality Noted Date [...] 1 each 05/21/19 22 Active Dexcom G6 Accounting Manager Controller misc 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 Use to [...] 05/20/2021 Assessment & Plan (05/22/2021 3:58 PM SHINGLE SHEARING MACHINE OPERATOR): A initial well visit to establish care [...] unless otherwise indicated. Need follow-up arranged with scanning coordinator, hris developer Planning on referral to painter bottom Will need to check in to the tips follow-up Labs as ordered today, I will direct the A1 c to his hris developer's office. Continuing the current regimen for now. Blood pressure is controlled at this time. We may need to try to get the stress test done as well. Screen for colon cancer 03/01/2021 Overview (03/01/2021): Added automatically from request for surgery [id number] Diabetic neuropathy associat ed with type 2 diabetes mellitus ([facility]) 10/29/2020 Assessment & Plan (10/29/2020 4:23 PM CDT): Chronic, worsening Start, gabapentin therapy Work on better diabetic control Vitamin D deficiency 10/29/2020 Assessment & Plan (10/29/2020 4:23 PM CDT): Check labs and based on that for the plans Bacterial endocarditis 05/14/2020 Assessment & Plan (05/14/2020 11:09 AM SHINGLE SHEARING MACHINE OPERATOR): Unfortunately the patient's records from [place] are not available for my review. We [...] 05/14/2020 Assessment & Plan (05/14/2020 11:11 AM SHINGLE SHEARING MACHINE OPERATOR): The patient's dyspnea on exertion is likely [...] weekly - start checking blood sugars Using [employer] nikki 2 sensors - work on portion control diet, exercise every day - Get eye exam soon - do labs - fasting - follow up in 6 weeks with AGRICULTURAL ECONOMICS TEACHER Chelsea Driscoll ( to discuss about insulin [...] resume home regimen and follow-up with home hris developer MATHEUS pain 10/11/2017 Morbid obesity 12/09/2016 TRACY [...] on file Legal Sex Male 2:52 PM SHINGLE SHEARING MACHINE OPERATOR Gender Identity Male 10/29/2020 12:37 PM [...] on file Medical Devices Implanted Type Area Customer Success Representative Device Identifier Shelf Expiration Date Model / Serial / Lot Bard Peripheral Vascular [id number] Lifestar 14mm 60mm 80cm Stent Biliary - [id number] Implanted:Qty: 1 on 01/10/2021 at [facility] [employer] 09/15/2023 [id number] / / [id number] Procedures Procedure Name Priority Date/Time Associated Diagnosis Comments EGFR STAT 01/19/2024 10:31 PM CDT HEMOGLOBIN A1C STAT 11/23/2023 8:40 AM CDT LIPID PANEL Routine 05/20/2021 9:36 AM SHINGLE SHEARING MACHINE OPERATOR Morbid obesity with body mass index (BMI) of 40.0 to 44.9 in adult (HCC) ALBUMIN CREATININE RATIO, URINE Routine 05/20/2021 9:36 AM SHINGLE SHEARING MACHINE OPERATOR Diabetic neuropathy associated with type 2 diabetes [...] BLOOD ORDERABLES Final Result Performing Organization Address City/[facility] Co de Phone Number MOHINDER MICHELCH [address] [facility] Department [place] [address] * (ABNORMAL) Hemoglobin A1c (11/23/2023 8:40 AM CDT) [facility] Signature Hgb A1C 10.0(H) 4.0 - 5.6 % Estimated Average Glucose 240 mg/dL MOHINDER [facility] Comment: The ADA recommends reporting an estimated [...] ORDERABLES Fi nal Result Performing Organization Address City/[facility]/ZIP Co de Phone Number MOHINDER MICHEL [facility] Department [place] [address] * Albumin Creatinine Ratio, Urine (05/20/2021 9:36 AM SHINGLE SHEARING MACHINE OPERATOR) Albumin Ur <12.0 mg/L MOHINDER Comment: Interpretive Data No reference range established. Current interpretive data was last revised 2018. Creatinine Ur 47.6 mg/dL MOHINDER Comment: Interpretive Data No reference range established. Current interpretive data was last revised 2018. Albumin Creatinine Ratio, Ur <25 1 - 29 mg/g [facility] Urine 05/20/2021 9:36 AM SHINGLE SHEARING MACHINE OPERATOR 05/20/2021 7:41 PM SHINGLE SHEARING MACHINE OPERATOR us Simon Lundberg MD LAB URINE ORDERABLES Final Result [facility] [address] [address] Department [place] [address] * (ABNORMAL) Lipid panel (05/20/2021 9:36 AM SHINGLE SHEARING MACHINE OPERATOR) Cholesterol 110 30 - 199 mg/dL [facility] Comment: Interpretive Data Ages < or = [...] ratio 3 MOHINDER Blood 05/20/2021 9:36 AM SHINGLE SHEARING MACHINE OPERATOR 05/20/2021 7:41 PM SHINGLE SHEARING MACHINE OPERATOR us Simon Lundberg MD LAB BLOOD ORDERABLES Final Result MOHINDER [address] Department [place] [address] * COLONOSCOPY (12/17/2020 10:24 AM CDT) Anatomical Region Laterality Modality Other Narrative Procedure Note Elian Gross MD - 12/17/2020 10:24 AM CDT ENDOSCOPY LAB Patient Name: Camilo Curry Procedure Date: 12/17/2020 10:24 AM Date of : 1970 Admit Type: Outpatient Age: 50 Gender: Male Attending MD: Elian Vivar M.D. Room: [facility] ENDOSCOPY ROOM 02 Note Status: Finalized Procedure: [...] the physician, the nurse, the anesthesiologist, the doughnut glazier and thetechnician in the pre-procedure area in [...] The scope was passed under direct vision.The [id number] was introduced through the anusand advanced to the hepatic flexure. The colonoscopywas performed without difficulty. The patient tolerated the procedure well. The quality of the bowel preparation was unsatisfactory. The quality of the bowel preparation was evaluated using the BBPS(Steward Bowel Preparation Scale) with scores of: RightColon [...] 12/17/2020 10:24 AM Elian Draper MD ENDOSCOPY AL OCEDURES Final Result * Serum Hepatitis panel (08/23/2015 5:23 PM CDT) HBV surface ag Negative NEG HISTO RICAL RESULTS HCV ab Negative NEG HISTORICAL RESULTS Comment: Interpretive Data If confirmation is required, call Laboratory Customer Service to request sample to be sent to [facility] for Hepatitis C Virus (HCV) RNA Detection and Quantitation by Real-Time Reverse Forestry Crew Chief-PCR (RT-PCR). Current interpretive data was last revised [...] Recently Relevant to Health Maintenance Insurance [facility]NA [facility] Advance Directives For more information, please contact: [phone] * Full Code (Latest Code Status on [...] 11:57 AM 02/03/2018 5:26 AM Care Teams Transport Company Manager Relationship Specialty Start Date End Date Braydon Pavon PA [address] [place] [address] PCP - General 08/23/21 [place] [address] [address] [address] Consulting Physician Endocrinology 05/20/21 [place] [address] [address] [address] Consulting Physician Internal Medicine 05/20/21
--- OUTSIDE RECORDS SUMMARY | 2024-05-08 06:07 | XMS_ITS | Encounter Summary ---
Author Organization [facility] Address [address] [place] [address] Care Team Providers Care Adult Parole Officer Name Role Phone Simon Lundberg MD Primary Care Provider [phone] Nacho Rodriguez MD Unavailable [phone] Elian Gross MD Unavailable Reason for Visit * Reason Onset Date Comments Forms/questionnaires 05/31/2021 [facility]S Encounter Details Date Type Department Care Team (Late st Contact Info) Description 05/31/2021 Telephone [facility] [address] [address] [facility] [address] [facility] [address] [place] [address] [place] [address] [facility] [address] [place] [address] Forms/questionnaires (ADS) Social History Tobacco [...] on file Legal Sex Male 2:52 PM MOTHERCRAFT NURSE Gender Identity Male 10/29/2020 12:37 PM CDT Sexual Orientation Straight 10/29/2020 12 :37 PM CDT documented as of this encounter Miscellaneous Notes * Telephone Encounter - Karina Whittington MA - 06/03/2021 2:31 PM CST Faxed along with last office note Confirmation scanned ERCRAFT NURSE * Telephone Encounter - Karina Whittington MA - 05/31/2021 3:22 PM CST Prescription form received from [facility] for Dexcom supplies Form placed on Dr. Lindo's desk for signature ERCRAFT NURSE documented in this encounter Plan of Treatment Not on file documented as of this encounter Visit Diagnoses Not on filedocumented in this encounter Care Teams Adult Parole Officer Relationship Specialty Start Date End Date Simon Lundberg MD [address] [place] [address] PCP - General Family Medicine 05/20/21 08/22/21 [place] [address] [address] [address] Consulting Physician Endocrinology 05/20/21 [place] [address] [address] [address] Consulting Physician Internal Medicine 05/20/21 documented as of this encounter
--- OUTSIDE RECORDS SUMMARY | 2024-05-08 06:07 | XMS_ITS | Encounter Summary ---
Author Organization [facility] Address [address] [place] [address] Care Team Providers Care Event Planner Name Role Phone Simon Lundberg MD Primary Care Provider [phone] Nacho Rodriguez MD Unavailable [phone] Elian Gross MD Unavailable Reason for Visit * Reason Onset Date Comments Forms/questionnaires 07/17/2021 ADS Encounter Details Date Type Department Care Team (Late st Contact Info) Description 07/17/2021 Telephone [facility] [address] [place] [address] [place] [address] [facility] [address] [place] [address] Forms/questionnaires (ADS) Social History Tobacco [...] on file Legal Sex Male 2:52 PM SCUTCHER TENDER Gender Identity Male 10/29/2020 12:37 PM CDT Sexual Orientation Straight 10/29/2020 12 :37 PM CDT documented as of this encounter Miscellaneous Notes * Telephone Encounter - Karina Whittington MA - 07/17/2021 8:09 AM CDT Confirmation scanned * Telephone Encounter - Karina Whittington MA - 07/17/2021 6:41 AM CDT Fax received from [employer] requesting last office note. Office note from 10/29/20 faxed to [facility] and confirmation will be scanned when complete documented in this encounter Plan of Treatment Not on file documented as of this encounter Visit Diagnoses Not on filedocumented in this encounter Care Teams Event Planner Relationship Specialty Start Date End Date Simon Lundberg MD [address] [place] [address] PCP - General Family Medicine 05/20/21 08/22/21 [place] [address] [address] [address] Consulting Physician Endocrinology 05/20/21 [place] [address] [address] [address] Consulting Physician Internal Medicine 05/20/21 documented as of this encounter
--- OUTSIDE RECORDS SUMMARY | 2024-05-08 06:07 | XMS_ITS | Encounter Summary ---
Author Organization [facility] Address [address] [place] [address] Care Team Providers Care Pedicab Driver Name Role Phone Simon Lundberg MD Primary Care Provider [phone] Nacho Rodriguez MD Unavailable [phone] Elian Gross MD Unavailable Reason for Visit * Reason Onset Date Comments pain management referral 05/21/2021 Encounter Details Date Type Department Care Team (Late st Contact Info) Description 05/21/[address] [facility] Primary Care at [address] [address] Simon Lundberg MD [address] [place] [address] [address] [place] [address] pain management referral Social History [...] on file Legal Sex Male 2:52 PM SPRAYER LEATHER Gender Identity Male 10/29/2020 12:37 PM CDT Sexual Orientation Straight 10/29/2020 12 :37 PM CDT documented as of this encounter Miscellaneous Notes * Telephone Encounter - Simon Lundberg MD - 05/21/2021 12:52 PM SPRAYER LEATHER We will need to know who they have in-network YER LEATHER * Telephone Encounter - Norm Garcia - 05/21/2021 9:56 AM CST Patient called and stated that Pain management Dr. Ni office doesn't take his insurance. He would like a referral to a different pain management clinic. YER LEATHER documented in this encounter Plan of Treatment Not on file documented as of this encounter Visit Diagnoses Not on filedocumented in this encounter Care Teams Pedicab Driver Relationship Specialty Start Date End Date Simon Lundberg MD [address] [place] [address] PCP - General Family Medicine 05/20/21 08/22/21 [place] [address] [address] Consulting Physician Endocrinology 05/20/21 [place] [address] [address] [facility] [address], [place] [address] Consulting Physician Internal Medicine 05/20/21 documented as of this encounter
--- OUTSIDE RECORDS SUMMARY | 2024-05-08 06:07 | XMS_ITS | Encounter Summary ---
Author Organization [facility] Address [address] [place] [address] Care Team Providers Care Fuel Assembler Name Role Phone Simon Lundberg MD Primary Care Provider [phone] Nacho Rodriguez MD Unavailable + [phone] Elian Gross MD Unavailable Encounter Details Date Type Department Care Team (Late st Contact Info) Description 05/22/2021 Orders Only [facility] Primary Care at [address] [address] Simon Lundberg MD [address] [place] [address] [address] [place] [address] Social History Tobacco Use Types [...] on file Legal Sex Male 2:52 PM TECHNICAL PROGRAM MANAGER Gender Identity Male 10/29/2020 12:37 PM [...] on filedocumented in this encounter Care Teams Fuel Assembler Relationship Specialty Start Date End Date Simon Lundberg MD [address] [place] [address] PCP - General Family Medicine 05/20/21 08/22/21 [place] [address] [address] [address] Consulting Physician Endocrinology 05/20/21 [place] [address] [address] [address] Consulting Physician Internal Medicine 05/20/21 documented as of this encounter
--- OUTSIDE RECORDS SUMMARY | 2024-05-08 06:07 | XMS_ITS | Encounter Summary ---
Author Organization [facility] Healthcare Address [address] [place] [address] Care Team Providers Care Edge Trimming Machine Operator Name Role Phone Nacho Rodriguez MD Unavailable [phone] Elian Gross MD Unavailable Braydon Pavon Primary Care Provider [phone] Encounter Details Date Type Department Care Team (Late st Contact Info) Description 08/23/2021 6:47 AM CDT - 08/23/2021 8:35 AM CDT Hospital Encounter [facility] Endoscopy [address] [place] [address] Elian Gross MD [address] [place], [place] [id number] Discharge Disposition: Discharge to home or self [...] on file 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 Use to [...] the skin every 7 days Sample Lot [id number] Exp 03/03/2023 x 2 pens 11/07/20 Nacho [...] re:Bowel prep When you arrive come to [facility] hospital entrance. As you enter there will [...] and we do wear masks If your car pick up driver chooses to come into the building, they will be required to wear a mask If your car pick up driver chooses not to come in or will be picking you up after your procedure with anesthesia we will call your car pick up driver to confirm your ride home. documented in this encounter Plan of Treatment Not on file documented as of this encounter Procedures Procedure Name Priority Date/Time Associated Diagnosis Comments POCT GLUCOSE DEVICE Routine 08/23/2021 8 :18 AM CDT POCT GLUCOSE DEVICE Routine 08/23/2021 7 :32 AM CDT documented in this encounter Results * (ABNORMAL) POCT glucose (08/23/2021 8:18 AM CDT) [facility] Signature Glucose, POC 298(H) 70 - 199 mg/dL [facility] Comment: Interpretive Data Glucose is assumed to be non-fasting. Fasting Glucose reference ranges are: 0 - 150 years: ??70 mg/dL - 99 mg/dL Current interpretive data was last revised on 2014. POC Performer [id number] [facility] POC Device Number [id number] [facility] Blood 08/23/2021 8:18 AM CDT 08/23/2021 8:18 AM CDT Elian Draper MD LAB POCT ORD ERABLES - DEVICE Final Result Performing Organization Address [facility] Phone Number [facility] [address] [facility] [place] [address] * (ABNORMAL) POCT glucose (08/23/2021 7:32 AM CDT) [facility] Glucose, POC 344(H) 70 - 199 mg/dL MOHINDER WARD Comment: Interpretive Data Glucose is assumed to be non-fasting. Fasting Glucose reference ranges are: 0 - 150 years: ??70 mg/dL - 99 mg/dL Current interpretive data was last revised on 2014. POC Performer [id number] [facility] POC Device Number [id number] [facility] Blood 08/23/2021 7:32 AM CDT 08/23/2021 7:32 AM CDT Elian Draper MD LAB POCT ORD ERABLES - DEVICE Final Result Performing Organization Address [facility] de Phone Number [facility] [address] [facility] [employer] [place] [address] documented in this encounter Visit Diagnoses Diagnosis [...] 08/23/2021 documented in this encounter Care Teams Edge Trimming Machine Operator Relationship Specialty Start Date End Date Braydon Pavon PA [address] [place] [address] PCP - General 08/23/21 [place] [address] [address] [place] [address] Consulting Physician Endocrinology 05/20/21 [place] [address] [address] [facility] [address] [place] [address] Consulting Physician Internal Medicine 05/20/21 documented as of this encounter
--- OUTSIDE RECORDS SUMMARY | 2024-05-08 06:07 | XMS_ITS | Encounter Summary ---
Author Organization 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 Pt is at [facility] p/w constant severe diffuse abdominal pain. Had [...] on filedocumented in this encounter Care Teams Firmware Manager Relationship Specialty Start Date End Date Braydon Pavon PA [address] [place] [address] PCP - General 08/23/21 [place] [address] [address] [address] Consulting Physician Endocrinology 05/20/21 [place] [address] [address] [facility] [address], [place] [address] Consulting Physician Internal Medicine 05/20/21 documented as of this encounter
--- OUTSIDE RECORDS SUMMARY | 2024-05-08 06:07 | XMS_ITS | Encounter Summary ---
Author Organization [facility] Healthcare Address [address] [place] [address] Care Team Providers Care Restaurant Operations Manager Name Role Phone Nacho Rodriguez MD Unavailable [phone] Elian Gross MD Unavailable Braydon Pavon Primary Care Provider [phone] Reason for Visit * Reason Comments Abdominal Pain * Auth/Cert (Routine) Specialty Diagnoses / Procedures Referred By Contac t Referred To Contact Diagnoses RUQ abdominal pain Procedures NA Referral ID Status Reason Start Date Expiration Date Visits Re quested Visits Authorized [id number] 1 1 Encounter Details Date Type Department Care Team (Late st Contact Info) Description 01/19/2024 11:31 PM CDT - 01/20/2024 2:39 PM CDT Emergency [facility] Emergency Department [address] [place] [address] Giuseppe Pace MD [address] [place] [address] Ramírez Rae MD PhD [address] [place] [address] RUQ abdominal pain (Primary Dx); Liver cirrhosis [...] on file Legal Sex Male 2:52 PM TOBY MAKER Gender Identity Male 10/29/2020 12:37 PM [...] down food. 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 Use to [...] created with voice recognition software. Occasional wrong-wordor ???uzrqm-y-lmaa??? substitutions may have occurred due to the [...] the following long-term medication(s): alprazolam, dexcom g6 handle attacher, dexcom g6 sensor, dexcom g6 transmitter, hydrochlorothiazide, [...] of breast - Relation: Grandmother (Added by Shopping Mail Conv) ??? Stomach cancer Other Family history of malignant neoplasm of stomach - Relation: Grandmother (Added by Shopping Mail Conv) ??? Heart attack Other Family history of myocardial infarction - Relation: Grandmother (Added by Shopping Mail Conv) ??? Hypertension Other Family history of hypertension - Relation: Grandmother (Added by Shopping Mail Conv) Social History Social History Narrative ??? [...] from 11/23/2023 from outside ER Socioeconomic considerations: Tyqhyjj-cbfcfchu-smvifu summation: Camilo Curry is a 53 y.o. [...] high-sensitivity ??? DO NOT UNCHECK - ED cognos administrator Standing Order: Abdominal Pain ??? Consult to [...] persistent nature of symptoms does suggest the co ed for additional workup. By: Giuseppe Pace [...] By: Ramírez Rae MD PhD Time: 01/19 0792 Comment: Attempted to call both hospitalist on coming as well as new a.mMendez GI consult. Awaiting to hear back from both. By: Ramírez Rae MD PhD Time: 01/20 0861 Comment: Discussed with GI regarding additional workup. They recommend MRI of the abdomen. Unfortunately the patient has severe phobia associated with tight spaces and will need sedation By: Giuseppe Pace MD Time: 01/19 0875 Comment: Still awaiting call back from hospitalist team. By: Ramírez Rae MD PhD Time: 01/19 0895 Comment: Discussed with hospitalist. Agrees with plan for admission and sedated MRI to evaluate forhepatic and portal vein thrombosis or failed tips . By: Ramírez Rae MD PhD Time: 01/19 1373 Comment: Dr. North at [facility] has accepted pt. By: Ramírez Rae [...] he feels his symptoms are worsening. By: Ramírez Rae MD PhD ED Diagnoses: 1. RUQ [...] sinus rhythm with a rate of 84. Barling normal. There is no ST deviation. T- [...] tendency for uric acid stone formation. Source: [facility] [employer] Current Interpretive Data was last revised on [...] - NERAL ORDERABLES Final Result M[facility]INDER LITTLECH [address] [facility] [address] * (ABNORMAL) POCT glucose (01/20/2024 10:23 AM CDT) Glucose, POC 247(H) 70 - 199 mg/dL Comment: Interpretive Data Glucose is assumed to be non-fasting. Fasting Glucose reference ranges are: 0 - 150 years: ??70 mg/dL - 99 mg/dL Current interpretive data was last revised on 2014. POC Performer [id number] [employer] POC Device Number [id number] MOHINDER MICHELW Blood 01/20/2024 10:2 3 AM CDT 01/20/2024 10:23 AM CDT Ramírez Rae MD PhD LAB POCT ORDERABLE S - DEVICE Final Result Performing Organization Address [facility] de Phone Number [facility] [address] [facility] [facility] [place] [address] * (ABNORMAL) POCT glucose (01/20/2024 3:00 AM CDT) Glucose, POC 341(H) 70 - 199 mg/dL Comment: Interpretive Data Glucose is assumed to be non-fasting. Fasting Glucose reference ranges are: 0 - 150 years: ??70 mg/dL - 99 mg/dL Current interpretive data was last revised on 2014. POC Performer [id number] [facility] POC Device Number [id number] [facility] Blood 01/20/2024 3:00 AM CDT 01/20/2024 3:00 AM CDT us Giuseppe Pace MD LAB POCT ORDERABLES - DEVICE Final Result Performing Organization Address [facility] Co de Phone Number [facility] [address] [facility]opedic [place] [address] * US Liver Doppler Complete [...] sinus rhythm with a rate of 84. ??Barling normal. ??There is no ST deviation. ??T-waves [...] sinus rhythm with a rate of 84. Barling normal. There is no STdeviation. T- waves [...] Final Result Performing Organization Address [facility] Co de Phone Number MOHINDER LITTLECH [address] [facility] [place] [address] * (ABNORMAL) Ammonia (01/20/2024 12:19 AM CDT) Ammonia 104(H) <=50 mcmol/L Blood 01/20/2024 12:1 9 AM CDT 01/20/2024 12:23 AM CDT Giuseppe Pace MD LAB BLOOD ORDERABLES Final Result Performing Organization Address [facility] Phone Number [facility] MICHELWCH [address] [facility] [place] [address] * CT Abdomen Pelvis WO Contrast (01/20/2024 [...] with liver Doppler. Preliminary report dictated by front desk administrator teleradiologist, Dr. Pancho Covarrubias. Dictated by: Neeraj [...] with liver Doppler. Preliminary report dictated by front desk administrator teleradiologist, Dr. Pancho Covarrubias. Dictated by: Neeraj [...] MD LAB BLOOD ORDERABLES Final Result [facility] [address] [facility]. [place] [address] * (ABNORMAL) Differential, auto (01/19/2024 10:31 PM CDT) Pathologist [facility] Neutrophil abs 2.6 1.5 - 6.5 K/cumm [...] 1 PM CDT 01/19/2024 10:33 PM CDT Giusepep Pace MD LAB BLOOD ORDERABLES Final Result Performing Organization Address [facility] Co de Phone Number [facility] [address] [facility] [place] [address] * Lipase (01/19/2024 10:31 PM CDT) Lipase 19 10 - 99 Units/L Blood (Blood, Venous) 01/19/2024 10:31 PM CDT 01/19/2024 10:33 PM CDT Giuseppe Pace MD LAB BLOOD ORDERABLES Final Result Performing Organization Address [facility]/ZIP Co de Phone Number [facility] [address] [employer]. [facility] [place] [address] * (ABNORMAL) Comprehensive metabolic panel (01/19/2024 10:31 [...] LAB BLOOD ORDERABLES Final Result [facility] [address] [facility]. [place] [address] * (ABNORMAL) CBC with auto differential (01/19/2024 10:31 PM CDT) WBC 4.0 3.8 - 9.9 K/cumm Hgb 15.4 13.0 - 17.5 g/dL [facility] Hct 44.4 38.9 - 50.3 % [facility] Plt 80(L) 150 - 400 K/cumm [facility] MPV 11.2 9.1 - 12.3 fL [facility] RBC 5.28 4.30 - 5.80 M/cumm [facility] MCV 84.1 81.3 - 96.4 fL [facility] MCH 29.2 27.1 - 33.3 pg [facility] W MCHC 34.7 32.3 - 35.7 g/dL [facility] RDW CV 18.0(H) 11.1 - 14.9 % [facility] RDW SD 52.4(H) 35.7 - 48.1 fL [facility] NRBC abs 0.02(H) 0.00 - 0.01 K/cumm [facility] BJW Blood (Blood, Venous) 01/19/2024 10:31 PM CDT 01/19/2024 10:33 PM CDT Giuseppe Pace MD LAB BLOOD ORDERABLES Final Result Performing Organization Address [facility]/ZIP Co de Phone Number MOHINDER LITTLECH [address] [employer] [place] [address] documented in this encounter Visit Diagnoses Diagnosis [...] 2 puff, inhalation, Every 6 hours PRN (direct response consultant), wheezing, Starting on Thu01/20/24 at 1300 cyclobenzaprine [...] 01/20/2024 documented in this encounter Care Teams Restaurant Operations Manager Relationship Specialty Start Date End Date Braydon Pavon PA [address] [place] [address] PCP - General 08/23/21 [place] [address] [address] [facility] [address] [place], [place] [address] Consulting Physician Endocrinology 05/20/21 [place] [address] [address] [facility] [address] [address] Consulting Physician Internal Medicine 05/20/21 documented as of this encounter
--- OUTSIDE RECORDS SUMMARY | 2024-05-08 06:07 | XMS_ITS | Encounter Summary ---
Author Organization [facility] Healthcare Address [address] [place] [address] Care Team Providers Care Auto Body Straightener Name Role Phone Nacho Rodriguez MD Unavailable [phone] Elian Gross MD Unavailable Braydon Pavon Primary Care Provider [phone] Reason for Visit * Reason Comments Multiple Medical Complaints Encounter Details Date Type Department Care Team (Late st Contact Info) Description 11/23/2023 8:17 AM CDT - 11/23/2023 1:13 PM CDT Emergency [facility] Emergency Department [address] [place] [address] Stephen Buckner MD [address] [place] [address] Type 2 diabetes mellitus with [...] on file 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 Use to [...] arrival: Comments: - Leila Vicente RN 11/23/23 4480 * Charlee Holden MD - 11/23/2023 8:21 [...] Affect: Mood normal. Behavior: Behavior normal. 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 On exam he is nonicteric. Abdomen is [...] (CMS/HCC) (HCC) Charlee Holden MD Resident 11/23/23 0930 Cosigned by Stephen Buckner MD at 11/24/2023 [...] POCT ORDERABLES - D EVICE Final Result [facility] Department [place] [address] * US Liver W Complete Doppler (C) [...] it. Electronically signed by: Emma Johnson M.D. Narrative 11/23/2023 6:27 PM CDT EXAMINATION: [...] POCT ketone, blood (11/23/2023 8:53 AM CDT) [facility] Ketones, Blood, POC 0.2 0.0 - 0.5 mmol/L Blood 11/23/2023 8:53 AM CDT 11/23/2023 8:53 AM CDT us Notinfile Unknown LAB POCT ORDERABLES - DEVICE F inal Result [facility] Department of [place] [address] * (ABNORMAL) Lactate dehydrogenase (LD) (11/23/2023 8:40 AM CDT) Lactate dehydrogenase (LDH) 409(H) 100 - 250 Units/L Blood 11/23/2023 8:40 AM CDT 11/23/2023 8:52 AM CDT Stephen Buckner MD LAB BLOOD ORDERABLES Fi nal Result Performing Organization Address [facility] Co de Phone Number [facility] Department [place] [address] * (ABNORMAL) Haptoglobin (11/23/2023 8:40 AM CDT) [facility] Haptoglobin <10.0(L) 30.0 - 200.0 mg/dL Blood 11/23/2023 8:40 AM CDT 11/23/2023 8:52 AM CDT Stephen Buckner MD LAB BLOOD ORDERABLES Fi nal Result Performing Organization Address [facility] de Phone Number [facility] Department [place] [address] * (ABNORMAL) Hepatic function panel (11/23/2023 8:40 AM CDT) Pathologist [facility] Bilirubin, total 3.0(H) 0.1 - 1.2 mg/dL Bilirubin, direct 0.3 0.1 - 0.3 mg/dL [facility] Protein, pl 7.4 6.5 - 8.5 g/dL [facility] Albumin 4.0 3.5 - 5.0 g/dL [facility] Alk phos 82 40 - 130 Units/L [facility] ALT 18 7 - 55 Units/L [facility] AST 30 10 - 50 Units/L [facility] Blood 11/23/2023 8:40 AM CDT 11/23/2023 8:52 AM CDT Stephen Buckner MD LAB BLOOD ORDERABLES Fi nal Result Performing Organization Address [facility]/ZIP Co de Phone Number [facility] Department [place] [address] * (ABNORMAL) Hemoglobin A1c (11/23/2023 8:40 AM CDT) [facility] Hgb A1C 10.0(H) 4.0 - 5.6 % Estimated Average Glucose 240 mg/dL [facility] Comment: The ADA recommends reporting an [...] ORDERABLES Fi nal Result Performing Organization Address City/State/[facility] Co de Phone Number [facility] Department [place] [address] * eGFR (11/23/2023 8:40 AM CDT) [facility] eGFR >90 >=60 mL/min/1. 73 m2 Comment: [...] MD LAB BLOOD ORDERABLES Fi nal Result [facility] Department [place] [address] * (ABNORMAL) Differential, auto (11/23/2023 8:40 AM CDT) Neutrophil abs 2.0 1.5 - 6.5 K/cumm Imm gran abs 0.0 0.0 - 0.1 K/cumm [facility] Lymphocyte abs 0.7(L) 0.8 - 3.3 K/cumm [facility] Monocyte abs 0.4 0.2 - 0.8 K/cumm [facility] Eosinophil abs 0.2 0.0 - 0.5 K/cumm [facility] Basophil abs 0.0 0.0 - 0.1 K/cumm [facility] Neutrophil pct 59.1 % [facility] Comment: Interpretive Data Percent cell count reference ranges are not reported, since discordance with absolute values may lead to misinterpretation of CBC data. Current Interpretive Data was last revised on 2017. Imm gran pct 0.6 % [facility] Comment: Interpretive Data Percent cell count reference ranges are not reported, since discordance with absolute values may lead to misinterpretation of CBC data. Current Interpretive Data was last revised on 2017. Lymphocyte pct 21.5 % [facility] Comment: Interpretive Data Percent cell count reference ranges are not reported, since discordance with absolute values may lead to misinterpretation of CBC data. Current Interpretive Data was last revised on 2017. Monocyte pct 11.8 % [facility] Comment: Interpretive Data Percent cell count reference ranges are not reported, since discordance with absolute values may lead to misinterpretation of CBC data. Current Interpretive Data was last revised on 2017. Eosinophil pct 5.8 % [facility] Comment: Interpretive Data Percent cell count reference ranges are not reported, since discordance with absolute values may lead to misinterpretation of CBC data. Current Interpretive Data was last revised on 2017. Basophil pct 1.2 % [facility] Comment: Interpretive Data Percent cell count reference ranges are not reported, since discordance with absolute values may lead to misinterpretation of CBC data. Current Interpretive Data was last revised on 2017. Blood 11/23/2023 8:40 AM CDT 11/23/2023 8:52 AM CDT Stephen Buckner MD LAB BLOOD ORDERABLES nal Result [facility] Department [place] [address] * (ABNORMAL) CBC with auto differential (11/23/2023 8:40 AM CDT) WBC 3.3(L) 3.8 - 9.9 K/cumm Hgb 15.3 13.0 - 17.5 g/dL [facility] Hct 43.4 38.9 - 50.3 % [facility] Plt 81(L) 150 - 400 K/cumm [facility] MPV 10.4 9.1 - 12.3 fL [facility] RBC 5.56 4.30 - 5.80 M/cumm [facility] MCV 78.1(L) 81.3 - 96.4 fL [facility] MCH 27.5 27.1 - 33.3 pg [facility] MCHC 35.3 32.3 - 35.7 g/dL [facility] RDW CV 18.2(H) 11.1 - 14.9 % [facility] RDW SD 47.4 35.7 - 48.1 fL [facility] NRBC abs 0.00 0.00 - 0.01 K/cumm [facility] Blood 11/23/2023 8:40 AM CDT 11/23/2023 8:52 AM CDT us Stephen Buckner MD LAB BLOOD ORDERABLES Fi nal Result [facility] Department [place] [address] * (ABNORMAL) Comprehensive metabolic panel (11/23/2023 8:40 AM CDT) Sodium 137 135 - 145 mmol/L Potassium, pl 4.2 3.3 - 4.9 mmol/L [facility] Chloride 102 97 - 110 mmol/L [facility] CO2 25 22 - 32 mmol/L [facility] Anion gap 10 2 - 15 mmol/L [facility] BUN 14 6 - 25 mg/dL [facility] Creatinine 0.78(L) 0.80 - 1.30 mg/dL [facility] Glucose 379(H) 70 - 199 mg/dL [facility] Comment: Interpretive Data Fasting glucose >/= 126 [...] 2022. Calcium 9.7 8.5 - 10.3 mg/dL [facility] Bilirubin, total 3.0(H) 0.1 - 1.2 mg/dL [facility] Protein, pl 7.4 6.5 - 8.5 g/dL [facility] Albumin 4.0 3.5 - 5.0 g/dL [facility] Alk phos 82 40 - 130 Units/L [facility] ALT 18 7 - 55 Units/L [facility] AST 30 10 - 50 Units/L [facility] Blood 11/23/2023 8:40 AM CDT 11/23/2023 8:52 AM CDT us Stephen Buckner MD LAB BLOOD ORDERABLES Fi nal Result Performing Organization Address [facility] de Phone Number [facility] Department [place] [address] * (ABNORMAL) POCT glucose (11/23/2023 8:36 AM CDT) Glucose, POC 360(H) 70 - 199 mg/dL Blood 11/23/2023 8:36 AM CDT 11/23/2023 8:36 AM CDT us Notinfile Unknown LAB POCT ORDERABLES - DEVICE F inal Result Performing Organization Address [facility] de Phone Number [facility] Department [place] [address] * (ABNORMAL) POCT glucose (11/23/2023 8:26 AM CDT) Glucose, POC 434(H) 70 - 199 mg/dL Comment:Glu2: RN/MD Notified Glucose comment 1 Glu2: RN/MD Notified [facility] Blood 11/23/2023 8:26 AM CDT 11/23/2023 8:26 AM CDT us Notinfile Unknown LAB POCT ORDERABLES - DEVICE F inal Result Performing Organization Address [facility] de Phone Number [facility] [place] [address] * (ABNORMAL) POCT glucose (11/23/2023 8:02 AM CDT) Glucose, POC 361(H) 70 - 199 mg/dL Blood 11/23/2023 8:02 AM CDT 11/23/2023 8:02 AM CDT us Notinfile Unknown LAB POCT ORDERABLES - DEVICE F inal Result [facility] Department [place] [address] documented in this encounter Visit Diagnoses Diagnosis [...] 11/23/2023 documented in this encounter Care Teams Auto Body Straightener Relationship Specialty Start Date End Date Braydon Pavon PA [address] [place] [address] PCP - General 08/23/21 [place] [address] [address] [address] Consulting Physician Endocrinology 05/20/21 [place] [address] [address] [place] [address] Consulting Physician Internal Medicine 05/20/21 documented as of this encounter
--- OUTSIDE RECORDS SUMMARY | 2024-05-08 06:07 | XMS_ITS | Encounter Summary ---
Author Organization [facility] Medical Group Address [address] [place] [address] Care Team Providers Care Carding Supervisor Name Role Phone Simon Lundberg MD Primary Care Provider [phone] Nacho Rodriguez MD Unavailable [phone] Elian Gross MD Unavailable Encounter Details Date Type Department Care Team (Late st Contact Info) Description 08/21/2021 Telephone [facility] [address] [place] [address] [place] [address] 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
--- OUTSIDE RECORDS SUMMARY | 2024-05-08 06:07 | XMS_ITS | Encounter Summary ---
Author Organization [facility] Medical Group Address [address] [place] [address] Care Team Providers Care Family Resource Coordinator Name Role Phone Simon Lundberg MD Primary Care Provider [phone] Nacho Rodriguez MD Unavailable [phone] Elian Gross MD Unavailable Reason for Visit * Reason Onset Date Comments Test Results 05/22/2021 labs Encounter Details Date Type Department Care Team (Late st Contact Info) Description 05/22/2021 Telephone [facility] Medical Group Primary Care at [address] [address] Ana Rosa Guerrero MA Test [...] on file Legal Sex Male 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 [employer] * Telephone Encounter - Norm Weiss - 05/22/2021 4:35 PM CST Patient called in and I relayed message below word for word. [employer] * Telephone Encounter - Ana Rosa Guerrero MA - 05/22/2021 4:13 PM CST lmovm for pt to return call for lab results [employer] * Telephone Encounter - Ana Rosa Guerrero MA - 05/22/2021 4:13 PM CST ----- Message from Simon Lundberg MD sent at 05/22/2021 3:57 PM ASSEMBLER RADIO AND ELECTRICAL ----- Please relay: cholesterol is controlled vitamin D is low, needs vitamin D supplement. I will send one. The a1c is 9.8%, will share with Dr. Lindo. Kidney function is fine. He is anemic, and it is likely iron deficiency. I would have him start iron supplement as well. [employer]BL[employer] documented in this encounter Plan of Treatment Not on file documented as of this encounter Visit Diagnoses Not on filedocumented in this encounter Care Teams Family Resource Coordinator Relationship Specialty Start Date End Date Simon Lundberg MD [address] [place] [address] PCP - General Family Medicine 05/20/21 08/22/21 [place] [address] [address] [facility] [address] [place] [address] Consulting Physician Endocrinology 05/20/21 [place] [address] [address] [facility] [address] [place] [address] Consulting Physician Internal Medicine 05/20/21 documented as of this encounter
--- OUTSIDE RECORDS SUMMARY | 2024-05-08 06:07 | XMS_ITS | Continuity of Care Document ---
Author Organization [facility] Address [address] [facility] [place] [address] Phone Care Team Providers Care Photographic Press Screwmaker Name Role Phone Roosevelt Mcgee MD Unavailable Unavailable Allergies, Adverse Reactions, Alerts Substance Reaction Status Criticality CIPROFLOXACIN HCL Active No Informa tion ciprofloxacin Active No Information erythromycin base Active No Informa tion Sulfa (Sulfonamide Antibiotics) Active No Information PENICILLIN Active No Information Medications Medication Instructions Dosage Effective Dates (start - stop) Status Comments [place] 10 mg-325 mg tablet take 1 tablet [...] Copied on Encounter OFFICE/OUTPA TIENT VISIT, EST [facility], [address] [place], [address], [place] tel:[phone] [facility] anxiety1 (chief complaint) DM (chief complaint) liver cirrhosis (chief complaint) GERD1 (chief complaint) chronic pain (chief complaint) Type 2 diabetes mellitus without complicationsGenera lized Anxiety DisorderOther cirrhosis of liverChronic pain syndrome 2-201 [address] [place], [address]. tel:[phone] Referring Provider: Tom Gaines [address], [place], [address]. tel:[phone] Family History Family Member Type Diagnosis Age At Onset Mother Problem (finding) of ovarian CA Mother Problem (finding) Sister Problem (finding) Alive and well Father Problem (finding) Sister Problem (finding) Diabetes mellitus type 2 Father Problem (finding) esophageal CA Payers Payer name Insurance type Covered alliance party ID Authoriza tion(s) No Information Social [...] takes lantus, tradejnta, humalog. His BG is [id number]. Pt sees endo for his DM. Pt [...] Mental Status Date Cognitive Assessment Orientation - [place] ed to time, place, person, situation.
--- OUTSIDE RECORDS SUMMARY | 2024-05-08 06:07 | XMS_ITS | Encounter Summary ---
Author Organization [facility] Medical Group Address [address] [place] [address] Care Team Providers Care Turfgrass Management Professor Name Role Phone Simon Lundberg MD Primary Care Provider [phone] Nacho Rodriguez MD Unavailable [phone] Elian Gross MD Unavailable Encounter Details Date Type Department Care Team (Late st Contact Info) Description 05/27/2021 Telephone [facility] Medical Group Primary Care at [address] [address] Simon Lundberg MD [address] [place] [address] [address] [place] [address] Social History Tobacco Use Types [...] on file 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 NE ELECTRICIAN APPRENTICE * Telephone Encounter - Ellen Jones - 05/28/2021 9:43 AM CST LVMTCB NE ELECTRICIAN APPRENTICE * Telephone Encounter - Ellen Jones - 05/28/2021 9:15 AM CST No answer at phone number. Will call back today. NE ELECTRICIAN APPRENTICE * Telephone Encounter - Simon Lundberg MD - 05/28/2021 8:35 AM MARINE ELECTRICIAN APPRENTICE Of course, we should have the official result in hand. But the verbally have conveyed it, so go ahead and let him know. Gwen needs to apologize to him for the delay NE ELECTRICIAN APPRENTICE * Telephone Encounter - Ellen Jones - 05/28/2021 8:22 AM CST Patient is not aware that he is negative. I wanted to make sure we had to result first. I can call and let him know if you would like. NE ELECTRICIAN APPRENTICE * Telephone Encounter - Simon Lundberg MD - 05/27/2021 3:27 PM MARINE ELECTRICIAN APPRENTICE Does he know it was negative? NE ELECTRICIAN APPRENTICE * Telephone Encounter - Ellen Jones - 05/27/2021 9:36 AM CST Patient called wanting his PCR results. I informed him that we have not received the results from [facility]. He reports that he can not believe we do not have the results. I check with my lead PSR and she confirmed there was no results in the chart. I informed the patient I would call [facility] to get the results. He reports that it doesn't really matter now the so much time has past. I have called [facility] and spoke to Priya. She reports the test is negative and she will send the copy over to our office. NE ELECTRICIAN APPRENTICE documented in this encounter Plan of Treatment Not on file documented as of this encounter Visit Diagnoses Not on filedocumented in this encounter Care Teams Turfgrass Management Professor Relationship Specialty Start Date End Date Simon Lundberg MD [address] [place] [address] PCP - General Family Medicine 05/20/21 08/22/21 [place] [address] [address] Consulting Physician Endocrinology 05/20/21 [place] [address] [facility] [address], [place] [address] Consulting Physician Internal Medicine 05/20/21 documented as of this encounter
--- OUTSIDE RECORDS SUMMARY | 2024-05-08 06:07 | XMS_ITS | Encounter Summary ---
Author Organization [facility] Medical Group Address [address] [facility] [address] [place] [address] Care Team Providers Care Bottom Finisher Name Role Phone Simon Lundberg MD Primary Care Provider [phone] Nacho Rodriguez MD Unavailable + [phone] Elian Gross MD Unavailable Reason for Visit * Reason Comments New Patient new patient Encounter Details Date Type Department Care Team (Late st Contact Info) Description 05/20/2021 9:00 AM MARBLE CUTTER OPERATOR Office Visit [facility] Medical [facility] Primary Care at [address] [address] Simon Lundberg MD [address] [place] [address] [address] [place] [address] Encounter for medical examination to [...] file Legal Sex Male 2:52 PM MARBLE CUTTER OPERATOR Gender Identity Male 10/29/2020 12:37 PM CDT Sexual Orientation Straight 10/29/2020 12 :37 PM CDT documented as of this encounter Last Filed Vital Signs Vital Sign Reading Time Taken Comments Blood Pressure 124/70 05/20/2021 9:01 AM MARBLE CUTTER OPERATOR Pulse 106 05/20/2021 9:01 AM MARBLE CUTTER OPERATOR Temperature 36.8 ??C (98.3 ??F) 05/20/2021 9:01 AM CS T Respiratory Rate 16 05/20/2021 9:01 AM MARBLE CUTTER OPERATOR Oxygen Saturation 97% 05/20/2021 9:01 AM MARBLE CUTTER OPERATOR Inhaled Oxygen Concentration - - Weight 117.9 kg (260 lb) 05/20/2021 9:01 AM MARBLE CUTTER OPERATOR Height 172.7 cm (5' 8 ) 05/20/2021 9:01 AM MARBLE CUTTER OPERATOR Body Mass Index 39.53 05/20/2021 9:01 AM MARBLE CUTTER OPERATOR documented in this encounter Patient Instructions * Patient Instructions* Simon Lundberg MD - 05/20/2021 9:00 AM MARBLE CUTTER OPERATOR Need follow-up arranged with editor farm journal, associate team physician Planning on referral to hand paint mixer Will need to check in to the tips follow-up Labs as ordered today, I will direct the Jeremi c to his associate team physician's office. Continuing the current regimen for now. [...] you have any questions or concerns at [phone]. You may receive a phone call, text, MYCHART message, or e-mail asking about your care today. We would love to hear your feedback on how EXCELLENT your care wastoday! Wishing you better health, always. Dr. Lundberg LE CUTTER OPERATOR documented in this encounter Progress Notes [...] stenosis, need to pain management physician. His editor farm journal ordered a stress test a year ago, but never obtained. He needs to make follow-up appointments with his editor farm journal, his associate team physician. He notes some difficulty getting through to his gluing machine offbearer Current Outpatient Medications Medication Sig Dispense Refill [...] under the skinevery 7 days Sample Lot [id number] Exp 03/03/2023 x 2 pens 2 pen [...] unless otherwise indicated. Need follow-up arranged with editor farm journal, associate team physician Planning on referral to hand paint mixer Will need to check in to the tips follow-up Labs as ordered today, I will direct the A1 c to his associate team physician's office. Continuing the current regimen for now. [...] - Ambulatory referral to Pain Management; Future LE CUTTER OPERATOR documented in this encounter Miscellaneous Notes * Assessment & Plan Note - Simon Lundberg MD - 05/20/2021 9:26 AM MARBLE CUTTER OPERATOR Associated Problem(s): Encounter for medical examination to [...] unless otherwise indicated. Need follow-up arranged with editor farm journal, associate team physician Planning on referral to hand paint mixer Will need to check in to the tips follow-up Labs as ordered today, I will direct the A1 c to his associate team physician's office. Continuing the current regimen for now. Blood pressure is controlled at this time. We may need to try to get the stress test done as well. LE CUTTER OPERATOR LE CUTTER OPERATOR documented in this encounter Plan of Treatment Not on file documented as of this encounter Results * (ABNORMAL) Hemoglobin A1c (05/20/2021 9:36 AM MARBLE CUTTER OPERATOR) Hgb A1C 9.8(H) 4.0 - 5.6 % [facility] Estimated Average Glucose 235 mg/dL [facility] Comment: The ADA recommends reporting an estimated Average Glucose (eAG) with all Hemoglobin A1c results using the equation derived from a study of 507 normal and diabetic adults. ??Minority populations were underrepresented and children were not included. ?? (Diabetes Care 31:8999-7772, 2007). ??The eAG is not equivalent to a fasting glucose. Blood 05/20/2021 9:36 AM MARBLE CUTTER OPERATOR 05/20/2021 7:41 PM MARBLE CUTTER OPERATOR Simon Lundberg MD LAB BLOOD ORDERABLES Final Result Performing Organization Address [facility] Co de Phone Number [facility] [address] [place] [address] * Albumin Creatinine Ratio, Urine (05/20/2021 9:36 AM MARBLE CUTTER OPERATOR) Pathologist [facility] Albumin Ur <12.0 mg/L [facility] Comment: Interpretive Data No reference range established. Current interpretive data was last revised 2018. Creatinine Ur 47.6 mg/dL [facility] Comment: Interpretive Data No reference range established. Current interpretive data was last revised 2018. Albumin Creatinine Ratio, Ur <25 1 - 29 mg/g [facility] Urine 05/20/2021 9:36 AM MARBLE CUTTER OPERATOR 05/20/2021 7:41 PM MARBLE CUTTER OPERATOR Simon Lundberg MD LAB URINE ORDERABLES Final Result Performing Organization Address [facility] Co de Phone Number [facility] [address] [facility] [employer] [place], [place] [id number] * (ABNORMAL) Vitamin D 25 hydroxy (05/20/2021 9:36 AM MARBLE CUTTER OPERATOR) Pathologist [facility] Vitamin D 25-OH 12(L) 30 - 80 ng/mL [facility] Blood 05/20/2021 9:36 AM MARBLE CUTTER OPERATOR 05/20/2021 7:41 PM MARBLE CUTTER OPERATOR us Simon Lundberg MD LAB BLOOD ORDERABLES Final Result Performing Organization Address City/State/ZIP [place] Phone Number [facility] [address] [facility] Department [place] [address] * (ABNORMAL) Lipid panel (05/20/2021 9:36 AM MARBLE CUTTER OPERATOR) Cholesterol 110 30 - 199 mg/dL [facility] Comment: Interpretive Data Ages < or = [...] revised on 2017. Triglycerides 149 <=149 mg/dL [facility] Comment: Interpretive Data Ages < or [...] 3 [facility] Blood 05/20/2021 9:36 AM MARBLE CUTTER OPERATOR 05/20/2021 7:41 PM MARBLE CUTTER OPERATOR Simon Lundberg MD LAB BLOOD ORDERABLES Final Result [facility] [address] Department [place] [address] * (ABNORMAL) Comprehensive metabolic panel (05/20/2021 9:36 AM MARBLE CUTTER OPERATOR) Sodium 139 135 - 145 mmol/L [facility] [...] Units/L [facility] Blood 05/20/2021 9:36 AM MARBLE CUTTER OPERATOR 05/20/2021 7:41 PM MARBLE CUTTER OPERATOR us Simon Lundberg MD LAB [place] [address] [address] Department [place] [address] * (ABNORMAL) CBC with auto differential (05/20/2021 9:36 AM MARBLE CUTTER OPERATOR) WBC 3.4(L) 3.8 - 9.9 K/cumm [facility] [...] K/cumm [facility] Blood 05/20/2021 9:36 AM MARBLE CUTTER OPERATOR 05/20/2021 7:41 PM MARBLE CUTTER OPERATOR us Simon Lundberg MD LAB BLOOD ORDERABLES Final Result Performing Organization Address City/State/ZIP [place] Phone Number [facility] MARTINEZ [address] [address] Department [place] [address] documented in this encounter Visit [...] valACYclovir (VALTREX) 1 gram tablet 11/19/2020 05/20/2021 [id number] doephedrine (Virtussin DAC) 2-20-6 mg/mL syrup every [...] hyperglycemia, with long-term current use of insulin ([facility]) One sensor every 14 days 10/29/2020 05/20/2021 [...] 03/29/2021 added in this encounter Care Teams Bottom Finisher Relationship Specialty Start Date End Date Simon Lundberg MD [address] [place] [address] PCP - General Family Medicine 05/20/21 08/22/21 [place] [address] [address] Consulting Physician Endocrinology 05/20/21 [place] [address] [address] Consulting Physician Internal Medicine 05/20/21 documented as of this encounter
--- OUTSIDE RECORDS SUMMARY | 2024-05-08 06:07 | XMS_ITS | Encounter Summary ---
Author Organization [facility] Healthcare Address [address] [place] [address] Care Team Providers Care Strategic Alliances Manager Name Role Phone Simon Lundberg MD Primary Care Provider [phone] Nacho Rodriguez MD Unavailable [phone] Elian Gross MD Unavailable Encounter Details Date Type Department Care Team (Late st Contact Info) Description 05/20/2021 5:25 PM NET APPLICATION SUPPORT SPECIALIST Lab [address] [address] Diabetic neuropathy associated with type [...] file Legal Sex Male 2:52 PM NET APPLICATION SUPPORT SPECIALIST Gender Identity Male 10/29/2020 12:37 PM CDT Sexual Orientation Straight 10/29/2020 12 :37 PM CDT documented as of this encounter Plan of Treatment Not on file documented as of this encounter Procedures Procedure Name Priority Date/Time Associated Diagnosis Comments EGFR Routine 05/20/2021 9:36 AM NET APPLICATION SUPPORT SPECIALIST Hepatic cirrhosis, unspecified hepatic cirrhosis type, unspecified whether ascites present (HCC) DIFFERENTIAL AUTO Routine 05/20/2021 9:3 6 AM NET APPLICATION SUPPORT SPECIALIST Thrombocytopenia (CMS/HCC) (HCC) Essential hypertension CBC WITH AUTO DIFFERENTIAL Routine 05/20/2021 9:36 AM NET APPLICATION SUPPORT SPECIALIST Thrombocytopenia (CMS/HCC) (HCC) Essential hypertension ALBUMIN CREATININE RATIO, URINE Routine 05/20/2021 9:36 AM NET APPLICATION SUPPORT SPECIALIST Diabetic neuropathy associated with type 2 diabetes mellitus (CMS/HCC) (HCC) VITAMIN D 25 HYDROXY Routine 05/20/2021 9:36 AM NET APPLICATION SUPPORT SPECIALIST Vitamin D deficiency HEMOGLOBIN A1C Routine 05/20/2021 9:36 AM NET APPLICATION SUPPORT SPECIALIST Diabetic neuropathy associated with type 2 diabetes mellitus (CMS/HCC) (HCC) LIPID PANEL Routine 05/20/2021 9:36 AM NET APPLICATION SUPPORT SPECIALIST Morbid obesity with body mass index (BMI) of 40.0 to 44.9 in adult (HCC) COMPREHENSIVE METABOLIC PANEL Routine 05/20/2021 9:36 AM NET APPLICATION SUPPORT SPECIALIST Hepatic cirrhosis, unspecified hepatic cirrhosis type, unspecified whether ascites present (HCC) documented in this encounter Results * eGFR (05/20/2021 9:36 AM NET APPLICATION SUPPORT SPECIALIST) eGFR 112 mL/min/1. 73 m2 [facility] MARTINEZ [...] last reviewed 2021. Blood 05/20/2021 9:36 AM NET APPLICATION SUPPORT SPECIALIST 05/20/2021 8:16 PM NET APPLICATION SUPPORT SPECIALIST Simon Lundberg MD LAB BLOOD ORDERABLES Final Result [facility] [address] [address] Department [place] [address] * (ABNORMAL) Differential, auto (05/20/2021 9:36 AM NET APPLICATION SUPPORT SPECIALIST) Neutrophil abs 2.6 1.7 - 6.5 K/cumm [facility] Imm gran abs 0.0 0.0 - 0.1 K/cumm [facility] Lymphocyte abs 0.4(L) 0.8 - 3.3 K/cumm [facility] Monocyte abs 0.3 0.2 - 0.8 K/cumm [facility] Eosinophil abs 0.1 0.0 - 0.5 K/cumm [facility] Basophil abs 0.0 0.0 - 0.1 K/cumm [facility] Neutrophil pct 75.1 % [facility] Comment: Consistent with previous result Interpretive Data [...] revised on 2017. Blood 05/20/2021 9:36 AM NET APPLICATION SUPPORT SPECIALIST 05/20/2021 7:41 PM NET APPLICATION SUPPORT SPECIALIST Simon Lundberg MD LAB BLOOD ORDERABLES Final Result [facility] [address] [address] Department [place] [address] * (ABNORMAL) CBC with auto differential (05/20/2021 9:36 AM NET APPLICATION SUPPORT SPECIALIST) WBC 3.4(L) 3.8 - 9.9 K/cumm [facility] Hgb 9.2(L) 13.0 - 17.5 g/dL [facility] Hct 36.1(L) 38.9 - 50.3 % [facility] Plt 100(L) 150 - 400 K/cumm C[facility]ER [...] K/cumm [facility] Blood 05/20/2021 9:36 AM NET APPLICATION SUPPORT SPECIALIST 05/20/2021 7:41 PM NET APPLICATION SUPPORT SPECIALIST us Simon Lundberg MD LAB BLOOD ORDERABLES Final Result Performing Organization Address City/State/[facility] Co de Phone Number [facility] [address] [address] Department [place] [address] * (ABNORMAL) Comprehensive metabolic panel (05/20/2021 9:36 AM NET APPLICATION SUPPORT SPECIALIST) Sodium 139 135 - 145 mmol/L [facility] Potassium, pl 4.7 3.3 - 4.9 mmol/L [facility] Chloride 101 97 - 110 mmol/L [facility] CO2 25 22 - 32 mmol/L [facility] Anion gap 13 2 - 15 mmol/L [facility] BUN 11 8 - 25 mg/dL [facility] Creatinine 0.70(L) 0.80 - 1.30 mg/dL [facility] Glucose 373(H) 70 - 199 mg/dL [facility] Comment: Interpretive Data Fasting glucose [...] Units/L [facility] Blood 05/20/2021 9:36 AM NET APPLICATION SUPPORT SPECIALIST 05/20/2021 7:41 PM NET APPLICATION SUPPORT SPECIALIST us Simon Lundberg MD LAB BLOOD ORDERABLES Final Result Performing Organization Address City/State/ZIP Co [place] Phone Number [facility] [address] [address] Department [place] [address] * (ABNORMAL) Lipid panel (05/20/2021 9:36 AM NET APPLICATION SUPPORT SPECIALIST) Cholesterol 110 30 - 199 mg/dL [facility] [...] 3 [facility] Blood 05/20/2021 9:36 AM NET APPLICATION SUPPORT SPECIALIST 05/20/2021 7:41 PM NET APPLICATION SUPPORT SPECIALIST Simon Lundberg MD LAB BLOOD ORDERABLES Final Result Performing Organization Address [facility] de Phone Number MOHIND[facility] [address] [address] Department [employer] [place] [address] * (ABNORMAL) Vitamin D 25 hydroxy (05/20/2021 9:36 AM NET APPLICATION SUPPORT SPECIALIST) Vitamin D 25-OH 12(L) 30 - 80 ng/mL [facility] Blood 05/20/2021 9:36 AM NET APPLICATION SUPPORT SPECIALIST 05/20/2021 7:41 PM NET APPLICATION SUPPORT SPECIALIST Simon Lundberg MD LAB BLOOD ORDERABLES Final Result Performing Organization Address [facility] de Phone Number PAMELAPAULA MARTINEZ [address] [address] Department [employer] [place] [address] * Albumin Creatinine Ratio, Urine (05/20/2021 9:36 AM NET APPLICATION SUPPORT SPECIALIST) Albumin Ur <12.0 mg/L [facility] Comment: Interpretive Data No reference range established. Current interpretive data was last revised 2018. Creatinine Ur 47.6 mg/dL [facility] Comment: Interpretive Data No reference range established. Current interpretive data was last revised 2018. Albumin Creatinine Ratio, Ur <25 1 - 29 mg/g [facility] Urine 05/20/2021 9:36 AM NET APPLICATION SUPPORT SPECIALIST 05/20/2021 7:41 PM NET APPLICATION SUPPORT SPECIALIST Result [facility] Simon Lundberg MD LAB URINE ORDERABLES Final Result Performing Organization Address [facility] Co de Phone Number [facility] [address] [address] [place] [place] [address] * (ABNORMAL) Hemoglobin A1c (05/20/2021 9:36 AM NET APPLICATION SUPPORT SPECIALIST) Hgb A1C 9.8(H) 4.0 - 5.6 % [facility] Estimated Average Glucose 235 mg/dL [facility] Comment: The ADA recommends reporting an estimated Average Glucose (eAG) with all Hemoglobin A1c results using the equation derived from a study of 507 normal and diabetic adults. ??Minority populations were underrepresented and children were not included. ?? (Diabetes Care 31:1459-0185, 2008). ??The eAG is not equivalent to a fasting glucose. Blood 05/20/2021 9:36 AM NET APPLICATION SUPPORT SPECIALIST 05/20/2021 7:41 PM NET APPLICATION SUPPORT SPECIALIST Simon Lundberg MD LAB BLOOD ORDERABLES Final Result Performing Organization Address City/[facility] Co de Phone Number [facility] [address] [address] [facility] [employer] [place] [address] documented in this encounter Visit Diagnoses Diagnosis Diabetic neuropathy associated with type 2 diabetes mellitus (CMS/HCC) (HCC) Vitamin D deficiency Morbid obesity with body mass index (BMI) of 40.0 to 44.9 in adult (HCC) Hepatic cirrhosis, unspecified hepatic cirrhosis type, unspecified whether ascites present (HCC) Thrombocytopenia (HCC) Unspecified thrombocytopenia Essential hypertension Unspecified essential hypertension documented in this encounter Care Teams Strategic Alliances Manager Relationship Specialty Start Date End Date Simon Lundberg MD [address] [place] [address] PCP - General Family Medicine 05/20/21 08/22/21 [place] [address] [address] [facility] [address], [place] [address] Consulting Physician Endocrinology 05/20/21 [place] [address] [address] [facility] [address] [place] [address] Consulting Physician Internal Medicine 05/20/21 documented as of this encounter
--- OUTSIDE RECORDS SUMMARY | 2024-05-08 06:07 | XMS_ITS | Encounter Summary ---
Author Organization [facility] Healthcare Address [address] [place] [address] Care Team Providers Care Microsoft Dynamics Manager Architect Name Role Phone Nacho Rodriguez MD Unavailable [phone] Elian Gross MD Unavailable Braydon Pavon Primary Care Provider [phone] Encounter Details Date Type Department Care Team (Late st Contact Info) Description 08/23/2021 8:00 AM CDT Anesthesia Event [facility] End[facility] [address] [place] [address] Bismark Edwards MD [address] [place] [address] Anesthesia Record Procedure Summary Procedure Name Responsible [...] on file 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 Gender Identity Male 10/29/2020 12:37 PM CDT [...] Page MD Notes: Not taking Dexcom G6 Bottle Labeler misc 05/21/21 -- Nacho Rodriguez MD Dx: [...] the skin every 7 days Sample Lot [id number] Exp 03/03/2023 x 2 pens Notes: Not [...] Medication protocol when under care of a AUTOMATION QA LEAD Planned anesthesia: General Informed Consent: Anesthesia plan [...] on filedocumented in this encounter Care Teams Microsoft Dynamics Manager Architect Relationship Specialty Start Date End Date Braydon Pavon PA [address] [place] [address] PCP - General 08/23/21 [place] [address] [address] [address] Consulting Physician Endocrinology 05/20/21 [place] [address] [address] [facility] [address], [place] [address] Consulting Physician Internal Medicine 05/20/21 documented as of this encounter
--- OUTSIDE RECORDS SUMMARY | 2024-05-08 06:07 | XMS_ITS | Encounter Summary ---
Author Organization [facility] Medical Group Address [address] [facility] [address] [place] [address] Care Team Providers Care Technical Account Representative Name Role Phone Simon Lundberg MD Primary Care Provider [phone] Nacho Rodriguez MD Unavailable [phone] Elian Gross MD Unavailable Encounter Details Date Type Department Care Team (Late st Contact Info) Description 05/27/2021 Orders Only [facility] Health Information Management [address] [place] [address] Scanning, Provider Social History Tobacco Use Types [...] file 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 Gender Identity Male 10/29/2020 12:37 PM CDT Sexual Orientation Straight 10/29/2020 12 :37 PM CDT documented as of this encounter Plan of Treatment Not on file documented as of this encounter Procedures Procedure Name Priority Date/Time Associated Diagnosis Comments SCAN - LABS 05/27/2021 10:09 PM CONCRETE FLOAT MAKER documented in this encounter Results * SCAN - LABS (05/27/2021 10:09 PM CONCRETE FLOAT MAKER) us Provider Scanning Final Result documented in this encounter Visit Diagnoses Not on filedocumented in this encounter Care Teams Technical Account Representative Relationship Specialty Start Date End Date Simon Lundberg MD [address] [place] [address] PCP - General Family Medicine 05/20/21 08/22/21 [place] [address] [address] [address] Consulting Physician Endocrinology 05/20/21 [place] [address] [address] [address] Consulting Physician Internal Medicine 05/20/21 documented as of this encounter
--- OUTSIDE RECORDS SUMMARY | 2024-05-08 06:07 | XMS_ITS | Encounter Summary ---
Author Organization [facility] Medical Group Address [address] [facility] [address] [place] [address] Care Team Providers Care Purchaser Automotive Parts Name Role Phone Simon Lundberg MD Primary Care Provider [phone] Nacho Rodriguez MD Unavailable [phone] Elian Gross MD Unavailable Encounter Details Date Type Department Care Team (Late st Contact Info) Description 05/20/2021 9:45 AM ELEMENTARY MATH TUTOR Lab [facility] Medical Group Outpatient Lab at [address] [address] Encounter for medical examination to [...] on file Legal Sex Male 2:52 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 MATH 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 Gender Identity Male 10/29/2020 12:37 PM CDT Sexual Orientation Straight 10/29/2020 12 :37 PM CDT documented as of this encounter Plan of Treatment Not on file documented as of this encounter Visit Diagnoses Diagnosis Encounter for medical examination to establish care Diabetic neuropathy associated with type 2 diabetes mellitus (CMS/HCC) (HCC) documented in this encounter Care Teams Purchaser [employer]otive [employer] Relationship Specialty Start Date End Date Simon Lundberg MD [address] [place] [address] PCP - General Family Medicine 05/20/21 08/22/21 [place] [address] [address] [address] Consulting Physician Endocrinology 05/20/21 [place] [address] [address] [address] Consulting Physician Internal Medicine 05/20/21 documented as of this encounter
--- OUTSIDE RECORDS SUMMARY | 2024-05-08 06:07 | XMS_ITS | Encounter Summary ---
Author Organization [facility] Medical Group Address [address] [facility] [address] [place] [address] Care Team Providers Care Cocoa Milling Machine Operator Name Role Phone Simon Lundberg MD Primary Care Provider [phone] Nacho Rodriguez MD Unavailable [phone] Elian Gross MD Unavailable Encounter Details Date Type Department Care Team (Late st Contact Info) Description 06/06/2021 Orders Only [facility] Medical Group Primary Care at [address] [address] Simon Lundberg MD [address] [place] [address] [address] [place] [address] Social History Tobacco Use Types [...] on file 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 Gender Identity Male 10/29/2020 12:37 PM CDT Sexual Orientation Straight 10/29/2020 12 :37 PM CDT documented as of this encounter Plan of Treatment Not on file documented as of this encounter Visit Diagnoses Not on filedocumented in this encounter Care Teams Cocoa Milling Machine Operator Relationship Specialty Start Date End Date Simon Lundberg MD [address] [place] [address] PCP - General Family Medicine 05/20/21 08/22/21 [place] [address] [address] [address] Consulting Physician Endocrinology 05/20/21 [place] [address] [address] [address] Consulting Physician Internal Medicine 05/20/21 documented as of this encounter
--- OUTSIDE RECORDS SUMMARY | 2024-05-08 06:07 | XMS_ITS | Encounter Summary ---
Author Organization [facility] Address [address] [place] [address] Phone Care Team Providers Care Electrical And Radio Mechanic Name Role Phone Simon Lundberg MD Primary Care Provider [phone] Nacho Rodriguez MD Unavailable + [phone] Elian Gross MD Unavailable Encounter Details Date Type Department Care Team (Late st Contact Info) Description 06/26/2021 Telephone [facility] Gastroenterology [address] [facility] Advanced Medicine 8th [place] [address] [place] [address] Carl Rouse MD [address] [facility] [address] [place] [address] Social History Tobacco Use Types Packs/Day Years [...] on file 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 Patient already has the 2 day prep at home. ----- Message from Faith Hooker sent at 06/19/2021 10:30 AM 8TH GRADE TEACHER ----- Regarding: FW: colon repeat Will you contact him to reschedule now that electives are resuming. ----- Message ----- From: Faith Hooker Sent: 06/19/2021 12:00 AM 8TH GRADE TEACHER To: Faith Hooker Subject: FW: colon repeat Pt aware that we could not schedule his Elective colonsocpy in June due to covid surge. Plan to f/u in 4-6 weeks to see if rescheduling is an option. 8TH GRADE TEACHER 8TH GRADE TEACHER documented in this encounter Plan of Treatment Not on file documented as of this encounter Visit Diagnoses Not on filedocumented in this encounter Care Teams Electrical And Radio Mechanic Relationship Specialty Start Date End Date Simon Lundberg MD [address] [place] [address] PCP - General Family Medicine 05/20/21 08/22/21 [place] [address] [facility] [address] [place] [address] Consulting Physician Endocrinology 05/20/21 [place] [address] [address] Consulting Physician Internal Medicine 05/20/21 documented as of this encounter
--- OUTSIDE RECORDS SUMMARY | 2024-05-08 06:07 | XMS_ITS | Encounter Summary ---
Author Organization [facility] Medical Group Address [address] [facility] [address] [place] [address] Care Team Providers Care C D Area Supervisor Name Role Phone Simon Lundberg MD Primary Care Provider [phone] Nacho Rodriguez MD Unavailable + [phone] Elian Gross MD Unavailable Reason for Visit * Reason Onset Date Comments order for covid test 05/22/2021 Encounter Details Date Type Department Care Team (Late st Contact Info) Description 05/22/2021 Telephone [facility] Medical Group Primary Care at [address] [address] Simon Lundberg MD [address] [place] [address] [address] [place] [address] order for covid test Social [...] on file 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 ER FINISHER * Telephone Encounter - Simon Lundberg MD - 05/22/2021 12:55 PM PEWTER FINISHER It will need to be faxed to that hospital ER FINISHER * Telephone Encounter - Norm Garcia - 05/22/2021 12:22 PM CST Patient called and would like a covid test sent to [facility]. He has had exposureto his granddaughter that tested positive. ER FINISHER documented in this encounter Plan of Treatment [...] Primary documented in this encounter Care Teams C D Area Supervisor Relationship Specialty Start Date End Date Simon Lundberg MD [address] [place] [address] PCP - General Family Medicine 05/20/21 08/22/21 [place] [address] [address] [address] Consulting Physician Endocrinology 05/20/21 [place] [address] [address] [address] Consulting Physician Internal Medicine 05/20/21 documented as of this encounter
--- OUTSIDE RECORDS SUMMARY | 2024-05-08 06:07 | XMS_ITS | Encounter Summary ---
Author Organization [facility] Healthcare Address [address] [place] [address] Care Team Providers Care Room Manager Name Role Phone Nacho Rodriguez MD Unavailable [phone] Elian Gross MD Unavailable Braydon Pavon Primary Care Provider [phone] Encounter Details Date Type Department Care Team (Late st Contact Info) Description 08/23/2021 8:00 AM CDT - 08/23/2021 8:45 AM CDT Surgery [facility] Endoscopy [address] [place] [address] Elian Gross MD [address] 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 Use to [...] the skin every 7 days Sample Lot [id number] Exp 03/03/2023 x 2 pens 11/07/20 Nacho [...] re:Bowel prep When you arrive come to [facility] hospital entrance. As you enter there [...] and we do wear masks If your local company refrigerated truck driver chooses to come into the building, they will be required to wear a mask If your local company refrigerated truck driver chooses not to come in or will be picking you up after your procedure with anesthesia we will call your local company refrigerated truck driver to confirm your ride home. documented in this encounter Plan of Treatment Not on file documented as of this encounter Procedures Procedure Name Priority Date/Time Associated Diagnosis Comments POCT GLUCOSE DEVICE Routine 08/23/2021 8 :18 AM CDT POCT GLUCOSE DEVICE Routine 08/23/2021 7 :32 AM CDT documented in this encounter Results * (ABNORMAL) POCT glucose (08/23/2021 8:18 AM CDT) [facility] Signature Glucose, POC 298(H) 70 - 199 mg/dL [facility] Comment: Interpretive Data Glucose is assumed to be non-fasting. Fasting Glucose reference ranges are: 0 - 150 years: ??70 mg/dL - 99 mg/dL Current interpretive data was last revised on 2014. POC Performer [id number] [facility] POC Device Number [id number] [facility] Blood 08/23/2021 8:18 AM CDT 08/23/2021 8:18 AM CDT us Elian Draper MD LAB POCT ORD ERABLES - DEVICE Final Result Performing Organization Address [facility] [[email or web address]] Co de Phone Number [facility] [address] [facility] [place] [address] * (ABNORMAL) POCT glucose (08/23/2021 7:32 AM CDT) [facility] Signature Glucose, POC 344(H) 70 - 199 mg/dL [facility] Comment: Interpretive Data Glucose is assumed to be non-fasting. Fasting Glucose reference ranges are: 0 - 150 years: ??70 mg/dL - 99 mg/dL Current interpretive data was last revised on 2014. POC Performer [id number] [facility] POC Device Number [id number] [facility] Blood 08/23/2021 7:32 AM CDT 08/23/2021 7:32 AM CDT us Elian Draper MD LAB POCT ORD ERABLES - DEVICE Final Result Performing Organization Address [facility] [[email or web address]] Co de Phone Number [facility] [address] [facility] [place] [address] documented in this encounter Visit Diagnoses Diagnosis [...] 08/23/2021 documented in this encounter Care Teams Room Manager Relationship Specialty Start Date End Date Braydon Pavon PA [address] [place] [address] PCP - General 08/23/21 [place] [address] [address] [place] [address] Consulting Physician Endocrinology 05/20/21 [place] [address] [place] [address] Consulting Physician Internal Medicine 05/20/21 documented as of this encounter
--- OUTSIDE RECORDS SUMMARY | 2024-05-08 06:07 | XMS_ITS | Encounter Summary ---
Author Organization [facility] Medical Group Address [address] [facility] [address] [place] [address] Care Team Providers Care Supplier Diversity Director Name Role Phone Simon Lundberg MD Primary Care Provider [phone] Nacho Rodriguez MD Unavailable + [phone] Elian Gross MD Unavailable Reason for Visit * Reason Onset Date Comments need tramdol refill 06/04/2021 Encounter Details Date Type Department Care Team (Late st Contact Info) Description 06/04/2021 Telephone [facility] Primary Care at [address] [address] Simon Lundberg MD [address] [place] [address] [address] [place] [address] need tramdol refill Social History [...] on file Legal Sex Male 2:52 PM ZIPPER IRONER Gender Identity Male 10/29/2020 12:37 PM CDT [...] Simon Lundberg MD - 06/12/2021 1:50 PM ZIPPER IRONER Ok, thanks ER IRONER * Telephone Encounter - Chica Bal MA - 06/12/2021 1:20 PM ZIPPER IRONER Spoke to pt, informed pt that I have a list of pain management providers, pt voiced understanding, pt has an appt on 06/17/21 and will fruit picker machine operator the list then. ER IRONER * Telephone Encounter - Simon Lundberg MD - 06/11/2021 9:09 AM ZIPPER IRONER Is there anyway we can find out from insurance company? There are only so many pain management specialists in the area. We can table at for now. But to reiterate, I will NOT fill both Tylenol 3 and tramadol ER IRONER * Telephone Encounter - Chica Bal MA - 06/11/2021 8:48 AM ZIPPER IRONER Pt stated the his insurance gave him 3 names, pt did not remember the 3 names, when he called to make an appt, he was told that his insurance was not excepted at any of the offices he was given. ER IRONER * Telephone Encounter - Simon Lundberg MD - 06/10/2021 12:35 PM ZIPPER IRONER That is a bit confusing, insurance gave [...] still recommend we get Pain Management involved. ER IRONER * Telephone Encounter - Chica Bal MA - 06/07/2021 5:19 PM ZIPPER IRONER Spoke to pt, pt stated he is not taking Tylenon 3. Pt does not know which pain management his insurance takes, he stated that the insurance had given him 3 names, but all 3 did not take his insurance. Pt does not know what to do, he may go back to his other dr. ER IRONER * Telephone Encounter - Simon Lundberg MD - 06/07/2021 3:52 PM ZIPPER IRONER I won't fill both. It is not a safe practice, risk of overdose ER IRONER * Telephone Encounter - Ellen Jones - 06/07/2021 1:29 PM CST Patient reports he was taking the Tylenol 3 but ran out. He states that he was using it as the Tramadol was not working for his pain. ER IRONER * Telephone Encounter - Simon Lundberg MD - 06/07/2021 1:19 PM ZIPPER IRONER I'll need a list of names form his network. We can have him call alma to get that. Also, is he still taking tylenol 3? ER IRONER * Telephone Encounter - Ellen Jones - 06/07/2021 8:49 AM CST Patient informed and voiced understanding. He reports he was referred to pain management but they did not accept his insurance. Please place a pain management referral and I will search for someone in network for him. ER IRONER * Telephone Encounter - Ellen Jones - 06/07/2021 8:24 AM CST LVM to call back ER IRONER * Addendum Note - Simon Lundberg MD - 06/06/2021 10:29 AM CSTAddended by: SIMON LUNDBERG on: 06/06/2021 10:29 AM Modules accepted: Orders ER IRONER * Telephone Encounter - Simon Lundberg MD - 06/06/2021 10:27 AM ZIPPER IRONER Couple things: make sure he is not taking tylenol 3 anymore. Also, I will fill tramadol once. If further chronic pain med needed, I will need to refer out to pain management. ER IRONER * Telephone Encounter - Ellen Jones - 06/04/2021 1:03 PM CST Patient is calling stating that he needs a refill on his Tramadol 50 mg take one tablet three timesa day to [facility]. Please call patient once this is done. ER IRONER documented in this encounter Plan of Treatment Not on file documented as of this encounter Visit Diagnoses Not on filedocumented in this encounter Discontinued Medications Medication Sig Discontinue Reason Start Date End Da te traMADol (ULTRAM) 50 mg tablet TAKE 1 TABLET 3 TIMES DAILY NEEDED. Reorder 12/08/2016 06/06/2021 documented as of this encounter Care Teams Supplier Diversity Director Relationship Specialty Start Date End Date Simon Lundberg MD [address] [place] [address] PCP - General Family Medicine 05/20/21 08/22/21 [place] [address] [address] [address] Consulting Physician Endocrinology 05/20/21 [place] [address] [address] [address] Consulting Physician Internal Medicine 05/20/21 documented as of this encounter
--- OUTSIDE RECORDS SUMMARY | 2024-05-08 06:08 | XMS_ITS | Encounter Summary ---
Author Organization [facility] Medical Group Address [address] [facility] [address] [place] [address] Care Team Providers Care Ict Analyst Name Role Phone Braydon Pavon Primary Care Provider [phone] Nikolay Lancaster MD Unavailable Reason for Visit * Reason Onset Date Comments 1st no show letter 12/24/2020 Encounter Details Date Type Department Care Team (Late st Contact Info) Description 12/24/2020 [facility]phone [facility] [address] [facility] [address] [place] [address] Guicho Lindo, Nacho Lindo MD [id number] [place] [address] [address] [place] [address] 1st no show letter Social [...] on file Legal 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
--- OUTSIDE RECORDS SUMMARY | 2024-05-08 06:08 | XMS_ITS | Encounter Summary ---
Author Organization [facility] Healthcare Address [address] [place] [address] Care Team Providers Care Platen Press Operator Name Role Phone Braydon Pavon Primary Care Provider [phone] Nikolay Lancaster MD Unavailable [phone] Simon Lundberg MD Primary Care Provider [phone] Nacho Rodriguez MD Unavailable [phone] Elian Gross MD Unavailable Braydon Pavon Primary Care Provider [phone] Encounter Details Date Type Department Care Team (Late st Contact Info) Description 09/14/2020 Telephone [facility] Imaging [address] [id number] Trice Aldana, RT Social History Tobacco Use [...] on file 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 Gender Identity Male 10/29/2020 12:37 PM CDT Sexual Orientation Straight 10/29/2020 12 :37 PM CDT documented as of this encounter Plan of Treatment Not on file documented as of this encounter Visit Diagnoses Not on filedocumented in this encounter Care Teams Platen Press Operator Relationship Specialty Start Date End Date Braydon Pavon PA [address] [place] [address] PCP - General Family Practice 05/09/20 05/19/21 Simon Lundberg MD [address] [place] [address] PCP - General Family Medicine 05/20/21 08/22/21 Braydon Pavon PA [address] [place] [address] PCP - General 08/23/21 Nikolay Lancaster MD [address] [place] [address] 05/09/20 05/19/21 [place] [address] [facility] [address] [address] Consulting Physician Endocrinology 05/20/21 [place] [address] [facility] [address] [address] Consulting Physician Internal Medicine 05/20/21 documented as of this encounter
--- OUTSIDE RECORDS SUMMARY | 2024-05-08 06:08 | XMS_ITS | Encounter Summary ---
Author Organization [facility] Address [address] [place] [address] Phone Care Team Providers Care Roll Forming Supervisor Name Role Phone Braydon Pavon Primary Care Provider [phone] Nikolay Lancaster MD Unavailable [phone] Encounter Details Date Type Department Care Team (Late st Contact Info) Description 12/19/2020 Telephone [facility] Gastroenterology [address] [facility] 8th [place] [address] [place] [address] Brianna Vázquez LPN Social History [...] on filedocumented in this encounter Care Teams Roll Forming Supervisor Relationship Specialty Start Date End Date Braydon Pavon PA [address] [place] [address] PCP - General Family Practice 05/09/20 05/19/21 Nikolay Lancaster MD [address] [place] [address] 05/09/20 05/19/21 documented as of this encounter
--- OUTSIDE RECORDS SUMMARY | 2024-05-08 06:08 | XMS_ITS | Encounter Summary ---
Author Organization [facility] Medical Group Address [address] [facility] [address] [place] [address] Care Team Providers Care Medical Director/Head Team Physician Name Role Phone Braydon Pavon Primary Care Provider [phone] Nikolay Lancaster MD Unavailable [phone] Reason for Visit * Reason Comments Diabetes Type 2 Encounter Details Date Type Department Care Team (Latest Contact Info) Description 10/29/2020 2:30 PM CDT Office Visit [facility] Of [address] [phone] Guicho Lindo, [place] [address] [address] Type 2 diabetes mellitus with hyperglycemia, with long-term current use of insulin (CMS/[facility]) (Primary Dx); Diabetic neuropathy associated with type [...] on file 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 [facility] Consult Note Subjective/Objective Patient ID: Camilo [...] PEN NEEDLE 31 gauge x 5/16 needle dhhphdx-tnrcAQKbwcf-pwteospbmckieom (Virtussin DAC) 2-20-6 mg/mL syrup HUMULIN R [...] 1.59 11/03/2015 No results found for: MICROALBUR, [id number] Lab Results Component Value Date CHOL 115 [...] with long-term current use of insulin ([facility]) (Primary) Assessment & Plan: Chronic, uncontrolled, worsening [...] - follow up in 6 weeks with ADDICTIONS RECOVERY SPECIALIST Chelsea Driscoll ( to discuss about [...] neuropathy associated with type 2 diabetes mellitus ([facility]) Assessment & Plan: Chronic, worsening Start, gabapentin [...] (BMI) of 40.0 to 44.9 in adult ([facility]) Assessment & Plan: Counseled on diet and exercise Nacho Lindo MD documented in this encounter Miscellaneous Notes * Assessment & Plan Note - Nacho Rodriguez MD - 10/29/2020 4:23 PM CDTAssociated Problem(s): Diabetes mellitus, type 2 ([facility]) Chronic, uncontrolled, worsening HbA1c - 9.8 % [...] - follow up in 6 weeks with ADDICTIONS RECOVERY SPECIALIST Chelsea Driscoll ( to discuss about insulin pumps ) And in [address] Lindo * Assessment & Plan Note - Nacho Rodriguez MD - 10/29/2020 4:23 PM CDTAssociated Problem(s): Diabetic neuropathy associated with type 2 diabetes mellitus ([facility]) ([facility]) Chronic, worsening Start, gabapentin therapy Work on better diabetic control * Assessment & Plan Note - Nacho Rodriguez MD - 10/29/2020 4:23 PM CDTAssociated Problem(s): Morbid obesity with body mass index (BMI) of 40.0 to 44.9 in adult ([facility]) Counseled on diet and exercise * Assessment [...] with long-term current use of insulin ([facility]) Expected: 10/29/2020, Expires: 10/29/2021 Albumin Creatinine Ratio, Urine Lab Routine Type 2 diabetes mellitus with hyperglycemia, with long-term current use of insulin ([facility]) Expected: 10/29/2020, Expires: 10/29/2021 Vitamin D 25 hydroxy Lab Routine Vitamin D deficiency Expected: 10/29/2020, Expires: 10/29/2021 TSH reflex to free T4 Lab Routine Type 2 diabetes mellitus with hyperglycemia, with long-term current use of insulin ([facility]) Expected: 10/29/2020, Expires: 10/29/2021 Lipid panel Lab Routine Type 2 diabetes mellitus with hyperglycemia, with long-term current use of insulin ([facility]) Expected: 10/29/2020, Expires: 10/29/2021 documented as of this encounter Procedures Procedure Name Priority Date/Time Associated Diagnosis Comments POCT HEMOGLOBIN A1C Routine 10/29/2020 2 :47 PM CDT Type 2 diabetes mellitus with hyperglycemia, with long-term current use of insulin ([facility]) POCT GLUCOSE Routine 10/29/2020 2:47 PM CDT Type 2 diabetes mellitus with hyperglycemia, with long-term current use of insulin ([facility]) documented in this encounter Results * POCT [...] neuropathy associated with type 2 diabetes mellitus ([facility]/HCC) (HCC) Vitamin D deficiency Morbid obesity with body mass index (BMI) of 40.0 to 44.9 in adult ([facility]) documented in this encounter Care Teams Medical Director/Head Team Physician Relationship Specialty Start Date End Date Braydon Pavon PA [address] [place] [address] PCP - General Family Practice 05/09/20 05/19/21 Nikolay Lancaster MD [address] [address] 05/09/20 05/19/21 documented as of this encounter
--- OUTSIDE RECORDS SUMMARY | 2024-05-08 06:08 | XMS_ITS | Encounter Summary ---
Author Organization [facility] Address [address] [place] [address] Phone Care Team Providers Care Hospital Fellow Name Role Phone Braydon Pavon Primary Care Provider [phone] Nikolay Lancaster MD Unavailable [phone] Encounter Details Date Type Department Care Team (Late st Contact Info) Description 10/18/2020 Orders Only [facility] Gastroenterology [address] [facility] Advanced [facility] 8th [place] [address] [place] [address] Ellen Ventura LPN Social History [...] on file 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
--- OUTSIDE RECORDS SUMMARY | 2024-05-08 06:08 | XMS_ITS | Encounter Summary ---
Author Organization [facility] Address [address] [place] [address] Care Team Providers Care Composing Room Machinist Name Role Phone Braydon Pvaon Primary Care Provider [phone] Nikolay Lancaster MD Unavailable [phone] Reason for Visit * Reason Onset Date Comments Forms/questionnaires 10/31/2020 PA for Free style Elijah 2 Sensors Encounter Details Date Type Department Care Team (Late st Contact Info) Description 10/31/2020 Telephone [facility] [address] 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 Denial scanned into pt's chart. Called and spoke with pt. Relayed this information. Pt voiced understanding and has no further questions. * Telephone Encounter - Jose Luis Goodrich MA - 10/31/2020 3:14 PM CDT Incoming fax from [employer] stating a PA is needed for Freestyle Elijah 2 Sensor. PA started on CMM. Check with insurance within 5-business days. [place]: [id number] documented in this encounter Plan of Treatment Not on file documented as of this encounter Visit Diagnoses Not on filedocumented in this encounter Care Teams Composing Room Machinist Relationship Specialty Start Date End Date Braydon Pavon PA [address] [place] [address] PCP - General Family Practice 05/09/20 05/19/21 Nikolay Lancaster MD [address] [place] [address] 05/09/20 05/19/21 documented as of this encounter
--- OUTSIDE RECORDS SUMMARY | 2024-05-08 06:08 | XMS_ITS | Encounter Summary ---
Author Organization [facility] Address [address] [place] [address] Phone Care Team Providers Care Communication Studies Professor Name Role Phone Braydon Pavon Primary Care Provider [phone] Nikolay Lancaster MD Unavailable [phone] Reason for Visit * Reason Onset Date Comments Cardiac Clearance for EGD/Colon 09/06/2020 Encounter Details Date Type Department Care Team (Late st Contact Info) Description 09/06/2020 Telephone [facility] Gastroenterology [address] 8th [place] [address] [place] [address] Faith Sweet Cardiac Clearance for [...] file Legal 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 Estrada at [facility]. He accepted. We discussed his prep and the need for a truck driver supervisor. He is diabetic andwill hold his AM dose of medication on the day of the procedure. I sent the bowel prep script to [facility] in [place] and I am mailing him prep instructions. He denies any recent covid symptoms or exposures and will contact the office if this changes. * Telephone Encounter - Zara Aguilar BS - 09/11/2020 11:59 AM CDT Received a call from Verónica at kier operator office stating that patient is at no increase cardiac risk and that there was a clearance note in Epic. * Telephone Encounter - Faith Sweet - 09/06/2020 2:48 PM CDT I spoke with Camilo and confirmed his kier operator is Timothy Peterson at [facility]. He states he was treatedfor chest pain [...] office and left a message with the collections curator who is sending my message to the doctor for recommendations. The collections curator did mention, Camilo was seen in May and Dr. Peterson ordered a Echo and a stress test for further evaluation. Camilo no showed both appointments and has not rescheduled. The collections curator does not believe Dr. Peterson will offer [...] 10/16/2020 documented in this encounter Care Teams Communication Studies Professor Relationship Specialty Start Date End Date Braydon Pavon PA [address] [place] [address] PCP - General Family Practice 05/09/20 05/19/21 Nikolay Lancaster MD [address] [place] [address] 05/09/20 05/19/21 documented as of this encounter
--- OUTSIDE RECORDS SUMMARY | 2024-05-08 06:08 | XMS_ITS | Encounter Summary ---
Author Organization [facility] Medical Group Address [address] [place] [address] Care Team Providers Care Head Batcher Name Role Phone Braydon Pavon Primary Care Provider [phone] Nikolay Lancaster MD Unavailable [phone] Encounter Details Date Type Department Care Team (Late st Contact Info) Description 02/04/2021 Telephone [facility] Specialists Of [address] [address] Guicho Lind[place], [place] [address] [facility] [address] [place] [address] Social History Tobacco Use Types [...] on file 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
--- OUTSIDE RECORDS SUMMARY | 2024-05-08 06:08 | XMS_ITS | Encounter Summary ---
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) Procedures US Liver W Complete Doppler (C) US Liver Doppler Elian Gross MD Phone: tel: fax: [address] [address] Referral ID Status Reason Start Date Expiration Date Visits Re quested Visits Authorized [id number] Closed 09/11/2020 10/01/2020 1 1 Reason for Visit * Consultation (Routine) - Closed Specialty Diagnoses / Procedures Referred By Jordan casillas Referred To Contact Gastroenterology Diagnoses Nonalcoholic steatohepatitis (BLAND) Braydon Pavon PA [address] [place] [address] Phone: tel: fax: [facility] (All Locations) Referral ID Status Reason Start Date Expiration Date V isits Requested Visits Authorized [id number] Closed Specialty Services Required 06/14/2020 07/14/2021 25 25 Encounter Details Date Type Department Care Team (Late st Contact Info) Description 08/30/2020 9:40 AM CDT Office Visit [facility] Gastroenterology [address] [facility] Medical Office [address] [place] [address] Elian Gross MD [address] [facility] [address] [place] [address] 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 [id number] (Virtussin DAC) 2-20-6 mg/mL syrup every 6 [...] agreement as previously mentioned. Elian Ramsey M.D. web site admin Division of Gastroenterology Transplant Hepatology Section documented [...] IMG US PROCE DURES Final Result * [id number], Tumor Marker (08/30/2020 10:27 AM CDT) alpha Fetoprotein 3.5 0.0 - 8.3 ng/mL [facility] WARD Comment: Interpretive Data On July 29, 2016 new Chemistry Instrumentation was implemented. ??If you have any questions, please contact the Laboratory at [phone]. Testing performed by: [facility], [address] [place] [address]., [id number] Blood specimen (specimen) 08/30/2020 10:27 AM CDT 08/30/2020 12:11 PM CDT Elian Draper MD LAB BLOOD OR DERABLES Final Result [facility]HEL[facility] [address] [facility]. Department of Laboratories [place], [place] [id number] * (ABNORMAL) Protime-INR (08/30/2020 10:27 AM CDT) [...] MD LAB BLOOD OR DERABLES Final Result [facility] [address] [facility] Department [place] [address] * (ABNORMAL) Comprehensive metabolic panel (08/30/2020 10:27 AM CDT) Sodium 138 135 - 145 mmol/L [facility] Comment:MOB2 Potassium, pl 4.1 3.3 - 4.9 mmol/L [facility] Comment:MOB2 Chloride 99 97 - 110 mmol/L [facility] Comment:MOB2 CO2 26 22 - 32 mmol/L [facility] Comment:MOB2 Anion gap 13 2 - 15 mmol/L [facility] Comment:MOB2 BUN 15 8 - 25 mg/dL [facility] Comment:MOB2 Creatinine 0.66(L) 0.80 - 1.30 mg/dL [facility] Comment:MOB2 Glucose 377(H) 70 - 199 mg/dL [facility] Comment: Result called by [id number] at 2020-08-30 11:39:26. Result Read Back by [...] MD LAB BLOOD OR DERABLES Final Result [facility] [address] [facility]. Department [place] [address] * (ABNORMAL) CBC without differential (08/30/2020 10:27 AM CDT) Pathologist [facility] WBC 3.3(L) 3.8 - 9.9 K/cumm [facility] Hgb 8.4(L) 13.0 - 17.5 g/dL [facility] Hct 31.1(L) 38.9 - 50.3 % [facility] Plt 80(L) 150 - 400 K/cumm [facility] MPV 10.4 9.1 - 12.3 fL [facility] RBC 4.42 4.30 - 5.80 M/cumm [facility] MCV 70(L) 81 - 96 fL [facility] MCH 19.0(L) 27.1 - 33.3 pg [facility] MCHC 27.0(L) 32.3 - 35.7 g/dL [facility] RDW CV 18.0(H) 11.1 - 14.9 % [facility] RDW SD 44.9 35.7 - 48.1 fL [facility] Blood specimen (specimen) 08/30/2020 10:27 AM CDT 08/30/2020 10:28 AM CDT Elian Draper MD LAB BLOOD OR DERABLES Final Result [facility] [address] [address] [facility]. [place] [address] documented in this encounter Visit Diagnoses Diagnosis [...] 21 documented in this encounter Care Teams It Application Support Analyst Relationship Specialty Start Date End Date Braydon Pavon PA [address] [place] [address] PCP - General Family Practice 05/09/20 05/19/21 Nikolay Lancaster MD [address] [place] [address] 05/09/20 05/19/21 documented as of this encounter
--- OUTSIDE RECORDS SUMMARY | 2024-05-08 06:08 | XMS_ITS | Encounter Summary ---
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 Gender Identity Male 10/29/2020 12:37 PM CDT Sexual Orientation Straight 10/29/2020 12 :37 PM CDT documented as of this encounter Miscellaneous Notes * Telephone Encounter - Ana Rosa Morris RN - 01/08/2021 3:23 PM CDT No answer documented in this encounter Plan of Treatment Not on file documented as of this encounter Visit Diagnoses Not on filedocumented in this encounter Care Teams Crayon Painter Relationship Specialty Start Date End Date Braydon Pavon PA [address] [place] [address] PCP - General Family Practice 05/09/20 05/19/21 Nikolay Lancaster MD [address] [place] [address] 05/09/20 05/19/21 documented as of this encounter
--- OUTSIDE RECORDS SUMMARY | 2024-05-08 06:08 | XMS_ITS | Encounter Summary ---
Author Organization [facility] Medical Group Address [address] [place] [address] Care Team Providers Care Ice Scraper Name Role Phone Braydon Pavon Primary Care Provider [phone] Nikolay Lancaster MD Unavailable [phone] Encounter Details Date Type Department Care Team (Late st Contact Info) Description 05/16/2020 Telephone [facility] [address] [place] [address] Fili Peacock MD [address] [place] [address] [address] [place] [address] Social History Tobacco Use Types Packs/Day Years Used Date Smoking Tobacco: Former Smokeless Tobacco: Never Alcohol Use Standard Drinks/Week Comments No 0 (1 standard drink = 0.6 oz pur e alcohol) Sex and Gender Information Value Date Recorded Sex Assigned at Not on file 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 E INSPECTOR * Telephone Encounter - Mia Matta - 05/16/2020 1:35 PM CST CHIEF ENGINEER uncontrolled DM2 Schedule with Madonna PLEITEZ 05/16/20 E INSPECTOR documented in this encounter Plan of Treatment Not on file documented as of this encounter Visit Diagnoses Not on filedocumented in this encounter Care Teams Ice Scraper Relationship Specialty Start Date End Date Braydon Pavon PA [address] [place] [address] PCP - General Family Practice 05/09/20 05/19/21 Nikolay Lancaster MD [address] [place] [address] 05/09/20 05/19/21 documented as of this encounter
--- OUTSIDE RECORDS SUMMARY | 2024-05-08 06:08 | XMS_ITS | Encounter Summary ---
Author Organization [facility] Address [address] [place] [address] Phone Care Team Providers Care Legal Examiner Name Role Phone Braydon Pavon Primary Care Provider [phone] Nikolay Lancaster MD Unavailable Encounter Details Date Type Department Care Team (Late st Contact Info) Description 12/17/2020 Documentation [facility] Gastroenterology [address] [facility] 8th [place] [address] [place] [address] Niraj Anderson MD [address] [place] [address] Social History Tobacco Use Types Packs/Day Years [...] on file 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
--- OUTSIDE RECORDS SUMMARY | 2024-05-08 06:08 | XMS_ITS | Encounter Summary ---
Author Organization [facility] Address [address] [place] [address] Phone Care Team Providers Care Disciplinary Hearing Officer Name Role Phone Braydon Pavon Primary Care Provider [phone] Nikolay Lancaster MD Unavailable [phone] Reason for Visit * Reason Onset Date Comments Reschedule Colonoscopy 04/23/2021 Encounter Details Date Type Department Care Team (Late st Contact Info) Description 04/23/2021 Telephone [facility] Gastroenterology [address] 8th [place] [address] [place] [address] Faith Hooker. 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 R TREATMENT PLANT OPERATOR * Telephone Encounter - Faith Hooker - 04/24/2021 1:32 PM CST I called Camilo at [phone], I was unable to reach him. I LMOR for a return call. R TREATMENT PLANT OPERATOR * Telephone Encounter - Faith Hooker - 04/23/2021 10:09 AM CST I called Camilo at [phone], I was unable to reach him. I LMOR for a return call. ----- Message from Brianna Vázquez LPN sent at 04/16/2021 1:02 PM WATER TREATMENT PLANT OPERATOR ----- Regarding: RE: colon repeat Thanks! ----- Message ----- From: Faith Hooker Sent: 04/16/2021 12:51 PM WATER TREATMENT PLANT OPERATOR To: Brianna Vázquez LPN Subject: RE: colon repeat He left a message canceling. I have him in my f/u lists to get him rescheduled. ----- Message ----- From: Brianna Vázquez LPN Sent: 04/16/2021 12:47 PM WATER TREATMENT PLANT OPERATOR To: Faith Hooker Subject: RE: colon repeat I'm not seeing this in his chart at all... am I missing something? ----- Message ----- From: Faith Hooker Sent: 04/13/2021 12:00 AM WATER TREATMENT PLANT OPERATOR To: Brianna Vázquez LPN Subject: FW: colon repeat SCHEDULED WITH [facility] [place] [place] FOR 04.12.2021 AT 10A AT [facility] ----- Message ----- From: Faith Hooker Sent: 02/26/2021 To: Jose Roberto Russell Subject: colon repeat he did a terrible job with his bowel prep, solid stool everywhere, he needs to be reschedule for colonoscopy in 3 to 6 months with a 2 day bowel prep please. Repeat March - June 2021 R TREATMENT PLANT OPERATOR R TREATMENT PLANT OPERATOR documented in this encounter Plan of Treatment Not on file documented as of this encounter Visit Diagnoses Not on filedocumented in this encounter Care Teams Disciplinary Hearing Officer Relationship Specialty Start Date End Date Braydon Pavon PA [address] [place] [address] PCP - General Family Practice 05/09/20 05/19/21 Nikolay Lancaster MD [address] [place] [address] 05/09/20 05/19/21 documented as of this encounter
--- OUTSIDE RECORDS SUMMARY | 2024-05-08 06:08 | XMS_ITS | Encounter Summary ---
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) Procedures US Liver W Complete Doppler (C) US Liver Doppler Elian Gross MD Phone: tel: fax: [place] [address] [place] [address] Referral ID Status Reason Start Date Expiration Date Visits Re quested Visits Authorized [id number] Closed 09/11/2020 10/01/2020 1 1 Reason for Visit * Diagnostic Imaging (Routine) - Closed Specialty Diagnoses / Procedures Referred By Jordan casillas Referred To Contact Diagnoses 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) Procedures US Liver W Complete Doppler (C) US Liver Doppler Elian Gross MD Phone: tel: fax: [facility] [address] [address] Referral ID Status Reason Start Date Expiration Date Visits Re quested Visits Authorized [id number] Closed 09/11/2020 10/01/2020 1 1 Encounter Details Date Type Department Care Team (Late st Contact Info) Description 10/08/2020 9:43 AM CDT - 10/08/2020 11:59 PM CDT Hospital Encounter [facility] Imaging [address] [address] Elian Gross MD [address] [facility] [address] [place] [address] 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
--- OUTSIDE RECORDS SUMMARY | 2024-05-08 06:08 | XMS_ITS | Encounter Summary ---
Author Organization [facility] Healthcare Address [address] [place] [address] Care Team Providers Care License And Permit Specialist Name Role Phone Braydon Pavon Primary Care Provider [phone] Nikolay Lancaster MD Unavailable [phone] Reason for Referral * Diagnostic Imaging (Routine) - Closed Specialty Diagnoses / Procedures Referred By Contac t Referred To Contact Radiology Diagnoses Hepatic cirrhosis, unspecified hepatic cirrhosis type, unspecified whether ascites present (HCC) Procedures IR TIPS Revision Damien Archuleta MD Phone: tel: fax: [address] [address] Referral ID Status Reason Start Date Expiration Date Visits Re quested Visits Authorized [id number] Closed 01/02/2021 02/01/2022 1 1 Reason for Visit * Diagnostic Imaging (Routine) - Closed Specialty Diagnoses / Procedures Referred By Contac t Referred To Contact Radiology Diagnoses Hepatic cirrhosis, unspecified hepatic cirrhosis type, unspecified whether ascites present (HCC) Procedures IR TIPS Revision Damien Archuleta MD Phone: tel: fax: [address] [address] Referral ID Status Reason Start Date Expiration Date Visits Re quested Visits Authorized [id number] Closed 01/02/2021 02/01/2022 1 1 Encounter Details Date Type Department Care Team (Latest Contact Info) Description 01/10/2021 7:49 AM CDT - 01/10/2021 11:38 AM CDT 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 Gender Identity Male 10/29/2020 12:37 [...] prosthetic devices, implants and grafts, initial encounter ([facility]) - STENOSIS OF OTHER VASCULAR PROSTHETIC DEVICES, IMPLANTS AND GRAFTS, INITIAL ENCOUNTER Nonalcoholic steatohepatitis (BLAND) - NONALCOHOLIC STEATOHEPATITIS (BLAND) Portal hypertension (CMS/HCC) ([facility]) - PORTAL HYPERTENSION Portal hypertension Other diseases of stomach and duodenum - OTHER DISEASES OF STOMACH AND DUODENUM Secondary esophageal varices without bleeding (CMS/HCC) ([facility]) - SECONDARY ESOPHAGEAL VARICES WITHOUT BLEEDING Compression of vein - COMPRESSION OF VEIN Type 2 diabetes mellitus without complications (CMS/HCC) ([facility]) - TYPE 2 DIABETES MELLITUS WITHOUT COMPLICATIONS [...] status - RADIOGRAPHIC DYE ALLERGY STATUS Other terminal manager (current) drug therapy - OTHER NURSING HOME (CURRENT) DRUG THERAPY terminal manager (current) use of insulin ([facility]) - NURSING HOME (CURRENT) USE OF INSULIN Surgical operation with [...] draining. To contact an Interventional Radiologist at [facility] call [phone] Thursday through Thursday from 7:30am-4:30pm. At all other times call [phone] and ask that the Interventional Radiologist be paged. To contact an Interventional Radiologist at [facility] call [phone] Thursday through Thursday from 7:30am-3:30pm. Special instructions: [...] at Please come to: [] 3rd Floor [facility] [] 4th floor [facility] [] [facility] [] [facility] Please call [phone] to schedule a follow up appointment. You [...] the skin every 7 days Sample Lot [id number] Exp 03/03/2023 x 2 pens 2 pen [...] taking for the 01/10/21 encounter (Appointment) with [facility] N IR 363. Physical exam: Breathing is [...] ??? clindamycin (CLINDAGEL) 1 % gel ??? fulnkvm-hnbaSDYrqfw-ysoxocivqckzraw (Virtussin DAC) 2-20-6 mg/mL syrup every 6 [...] under the skinevery 7 days Sample Lot [id number] Exp 03/03/2023 x 2 pens ??? traMADol [...] been discussed with the patient and/or their mortician supplies sales representative. All questions answered and they agree to [...] - DEVICE F inal Result [facility] [place] [address] * IR TIPS Revision (01/10/2021 10:23 AM [...] was obtained. Prior to beginning the procedure, [place] Protocol was performed to confirm the patient's [...] centrally followed by placement of a 9 Wallisian vascular sheath. A Lev ??catheter was advanced [...] was obtained. Prior to beginning the procedure, [place] Protocol was performed to confirm the patient's [...] centrally followed by placement of a 9 Wallisian vascular sheath. A Lev catheter was advanced [...] 2020 documented in this encounter Care Teams License And Permit Specialist Relationship Specialty Start Date End Date Braydon Pavon PA [address] [place] [address] PCP - General Family Practice 05/09/20 05/19/21 Nikolay Lancaster MD [address] [place] [address] 05/09/20 05/19/21 documented as of this encounter
--- OUTSIDE RECORDS SUMMARY | 2024-05-08 06:08 | XMS_ITS | Encounter Summary ---
Author Organization [facility] Address [address] [place] [address] Phone Care Team Providers Care Dramatic Agent Name Role Phone Braydon Pavon Primary Care Provider [phone] Nikolay Lancaster MD Unavailable [phone] Encounter Details Date Type Department Care Team (Late st Contact Info) Description 08/30/2020 10:25 AM CDT Lab [facility] Oncology [address] [place] [address] Elian Gross MD [address] [facility] [address] [place] [address] 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 Department [place] [address] * (ABNORMAL) CBC without differential (08/30/2020 10:27 AM CDT) WBC 3.3(L) 3.8 - 9.9 K/cumm [facility] Hgb 8.4(L) 13.0 - 17.5 g/dL [facility] Hct 31.1(L) 38.9 - 50.3 % [facility] Plt 80(L) 150 - 400 K/cumm [facility] MPV 10.4 9.1 - 12.3 fL [facility] RBC 4.42 4.30 - 5.80 M/cumm [facility] MCV 70(L) 81 - 96 fL [facility] MCH 19.0(L) 27.1 - 33.3 pg [facility] MCHC 27.0(L) 32.3 - 35.7 g/dL [facility] RDW CV 18.0(H) 11.1 - 14.9 % [facility] RDW SD 44.9 35.7 - 48.1 fL [facility] Blood specimen (specimen) 08/30/2020 10:27 AM CDT 08/30/2020 10:28 AM CDT us Elian Draper MD LAB BLOOD OR DERABLES Final Result [facility] [address] [facility] Department [place] [address] * (ABNORMAL) Comprehensive metabolic panel (08/30/2020 10:27 AM CDT) Sodium 138 135 - 145 mmol/L [facility] Comment:MOB2 Potassium, pl 4.1 3.3 - 4.9 mmol/L [facility] Comment:MOB2 Chloride 99 97 - 110 mmol/L [facility] Comment:MOB2 CO2 26 22 - 32 mmol/L [facility] Comment:MOB2 Anion gap 13 2 - 15 mmol/L [facility] Comment:MOB2 BUN 15 8 - 25 mg/dL [facility] Comment:MOB2 Creatinine 0.66(L) 0.80 - 1.30 mg/dL [facility] Comment:MOB2 Glucose 377(H) 70 - 199 mg/dL [facility] Comment: Result called by [email or web address] at 2020-08-30 11:39:26. Result Read Back by [...] total 1.1 0.1 - 1.2 mg/dL [facility] Comment:MOB2 Protein, pl 7.0 6.5 - 8.5 g/dL [facility] Comment:MOB2 Albumin 3.9 3.5 - 5.0 g/dL [facility] Comment:MOB2 Alk phos 71 40 - 130 Units/L [facility] Comment:MOB2 ALT 67(H) 7 - 55 Units/L [facility] Comment:MOB2 AST 68(H) 10 - 50 Units/L [facility] Comment:MOB2 Blood specimen (specimen) 08/30/2020 10:27 AM CDT 08/30/2020 11:00 AM CDT us Elian Draper MD LAB BLOOD OR DERABLES Final Result Performing Organization Address [facility] de Phone Number [facility] [address] [place] [address] * (ABNORMAL) Protime-INR (08/30/2020 10:27 AM CDT) PT 14.8(H) 11.5 - 14.0 sec [facility] INR 1.1 0.9 - 1.1 [facility] Comment: Interpretive data Oral anticoagulant therapeutic [...] OR DERABLES Final Result Performing Organization Address [facility] Co de Phone Number [facility] [address] [place] [address] * [id number]-[id number], Tumor Marker (08/30/2020 10:27 AM CDT) alpha Fetoprotein 3.5 0.0 - 8.3 ng/mL [facility] Comment: Interpretive Data On July 29, 2016 new Chemistry Instrumentation was implemented. ??If you have any questions, please contact the Laboratory at [phone]. Testing performed by: [facility], [facility] [facility], [place]., [address] Blood specimen (specimen) 08/30/2020 10:27 AM CDT 08/30/2020 12:11 PM CDT us Elian Draper MD LAB BLOOD OR DERABLES Final Result [facility] [address] [facility]. 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
--- OUTSIDE RECORDS SUMMARY | 2024-05-08 06:08 | XMS_ITS | Encounter Summary ---
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 Emailed the scheduling number to [email or web address]. Will follow up in one week to verify date setup. ERY CLERK documented in this encounter Plan of Treatment Not on file documented as of this encounter Visit Diagnoses Not on filedocumented in this encounter Care Teams Safety Assistant Relationship Specialty Start Date End Date Braydon Pavon PA [address] [place] [address] PCP - General Family Practice 05/09/20 05/19/21 Nikolay Lancaster MD [address] [place] [address] 05/09/20 05/19/21 documented as of this encounter
--- OUTSIDE RECORDS SUMMARY | 2024-05-08 06:08 | XMS_ITS | Encounter Summary ---
Author Organization [facility] Address [address] [place] [address] Care Team Providers Care Risk Management Professional Name Role Phone Braydon Pavon Primary Care Provider [phone] Nikolay Lancaster MD Unavailable [phone] Reason for Visit * Reason Onset Date Comments Surgical Clearance 09/06/2020 Encounter Details Date Type Department Care Team (Late st Contact Info) Description 09/06/2020 [facility] Internet Marketing Manager [address] [place] [address] [address] [place] [address] Monet Leigh MA Surgical Clearance [...] on file 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
--- OUTSIDE RECORDS SUMMARY | 2024-05-08 06:08 | XMS_ITS | Encounter Summary ---
Author Organization [facility] Address [address] [facility] [address] [place] [address] Care Team Providers Care Coining Press Operator Name Role Phone Braydon Pavon Primary Care Provider [phone] Nikolay Lancaster MD Unavailable [phone] Reason for Visit * Reason Onset Date Comments Forms/questionnaires 10/31/2020 PA for Guidoem pic Encounter Details Date Type Department Care Team (Late st Contact Info) Description 10/31/2020 [facility]phone [facility] [address] 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 PA started on CMM. Insurance will follow up/or call insurance with 5-business days. [place]: [email or web address] documented in this encounter Plan of Treatment [...] documented as of this encounter Care Teams Coining Press Operator Relationship Specialty Start Date End Date Braydon Paovn PA [address] [place] [address] PCP - General Family Practice 05/09/20 05/19/21 Nikolay Lancaster MD [address] [place] [address] 05/09/20 05/19/21 documented as of this encounter
--- OUTSIDE RECORDS SUMMARY | 2024-05-08 06:08 | XMS_ITS | Encounter Summary ---
Author Organization [facility] Address [address] [place] [address] Phone Care Team Providers Care [employer] Senior Officer Name Role Phone Braydon Pavon Primary Care Provider [phone] Nikolay Lancaster MD Unavailable [phone] Reason for Visit * Reason Onset Date Comments GI PRE PROCEDURE ASSESSMENT 03/01/2021 12.1 0.[address] AT [address] ROUSE AT [facility] Encounter Details Date Type Department Care Team (Late st Contact Info) Description 03/01/2021 Telephone [facility] Gastroenterology [address] 8th [place] [address] [place] [address] Faith Hooker GI PRE PROCEDURE ASSESSMENT (04.12.2021 AT [address] 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 Gender Identity Male 10/29/2020 12:37 PM [...] HIGH ON AVERAGE PRIOR PROCEDURE ISSUES: None HEAT TREATER HEAD/: NA IMPLANTS.: None Notes: DIABETIC MEDS Y/N: [...] [] Location limitations: Scheduling Scheduling location limitations: Train Planner needed [x] NA Language: POA [x] NA Name: SPECIAL PROCEDURE INSTRUCTIONS Scheduling Notes Procedure information Date of procedure: 04.12.2021 Time of procedure: 10am Arrival time: 9 am Location: [facility] Proceduralist: Demi Rouse Instructions Method of instructions: Mailed copy and Verbal [x]Confirmation of ride/automatic head sawyer [x]Post anesthesia restrictions given [x]NPO Instructions: [x]Diet Instructions: [x]Take non-blood thinner prescription meds that morning [x]Bring med list, photo ID, insurance card, no valuables [x]Bring COVID vaccination card (if vaccinated) Bowel Prep Prep prescribed: Other (list) 2 GOLYTELY PREP Method of Bowel Prep (RX): E-Scribe Copy GOLYELY / PT TO BUTTON PUNCHER DULCOLAX AND MAG CIT ----- Message from [...] 03/01/2021 documented in this encounter Care Teams [employer] Senior Officer Relationship Specialty Start Date End Date Braydon Pavon PA [address] [place] [address] PCP - General Family Practice 05/09/20 05/19/21 Nikolay Lancaster MD [address] [place] [address] 05/09/20 05/19/21 documented as of this encounter
--- OUTSIDE RECORDS SUMMARY | 2024-05-08 06:08 | XMS_ITS | Encounter Summary ---
Author Organization [facility] Healthcare Address [address] [place] [address] Care Team Providers Care Analytics Leader Name Role Phone Braydon Pavon Primary Care Provider [phone] Nikolay Lancaster MD Unavailable [phone] Encounter Details Date Type Department Care Team (Late st Contact Info) Description 12/17/2020 8:33 AM CDT - 12/17/2020 11:54 AM CDT Hospital Encounter [facility] Endoscopy [address] [place] [address] Elian Gross MD [address] [facility] [address] [place] [address] Hepatic cirrhosis, unspecified hepatic cirrhosis type, unspecified [...] on file 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 * Procedural Sedation (AfterCare(R) Instructions(ER/ED)) ([place] Citizen) documented in this encounter Medications at Time [...] the skin every 7 days Sample Lot [id number] Exp 03/03/2023 x 2 pens 2 pen [...] 1 % gel 11/20/20 Tyler Page MD kfbgjlb-snldPUYruhy-lrjfuaalmiycrfz (Virtussin DAC) 2-20-6 mg/mL syrup every 6 [...] the skin every 7 days Sample Lot [id number] Exp 03/03/2023 x 2 pens 11/07/20 Nacho [...] Male Attending MD: Elian Draper M.D. Room: [facility] ENDOSCOPY ROOM 02 Note Status: Finalized [...] the physician, the nurse, the anesthesiologist, the wharf builder and the orthodontic lab technician in the pre-procedure area in the [...] scope was passed under direct vision. The [id number] was introduced through the anus and advanced to the hepatic flexure. The colonoscopy was performed without difficulty. The patient tolerated the procedure well. The quality of the bowel preparation was unsatisfactory. The quality of the bowel preparation was evaluated using the BBPS ([place] Bowel Preparation Scale) with scores of: Right [...] Male Attending MD: Elian Draper M.D. Room: [facility] ENDOSCOPY ROOM 02 Note Status: Finalized [...] the physician, the nurse, the anesthesiologist, the wharf builder and the orthodontic lab technician in the pre-procedure area in the [...] and oxygen saturations were monitored continuously. The [id number] was introduced through the mouth, and advanced [...] Bowel prep When you arrive, come to [facility] hospital entrance. There is a [address] with free removable prosthodontist parking, or you may park in front [...] mask at all times My number is [phone] documented in this encounter Plan of Treatment [...] was last revised on 2014. POC Performer [id number] MOHINDER WARD POC Device Number [id number] MOHINDER LITTLECH Glucose comment 1 RN/MD Notified MOHINDER WARD Blood 12/17/2020 11:0 4 AM CDT 12/17/2020 11:04 AM CDT us Elian Draper MD LAB POCT ORD ERABLES - DEVICE Final Result [facility] [address] [facility]. [place] [address] * Surgical pathology (12/17/2020 10:34 AM CDT) Tissue (Polyp(s), colon/colorectal, esophageal, gastric) 12/17/2020 10:34 AM CDT Narrative PATHOLOGY [facility] - 12/18/2020 2:08 PM CDT EPIC results best viewed via link to PDF [facility] [place] [address] Note to Patients: This report may contain [...] Gender: ??M : ??1970 (Age: 50) Address: ??[address] [place] [address] Hospital #: ??[id number] Taken:12/17/2020 Received:12/17/2020 Reported: 12/18/2020 Patient Type: WC SDS Client ?[facility] Service: Gastro Location: [facility] Physician(s): ??Amber Browning PA Diagnosis: A. ??Descending [...] interpretation for this case was performed at [facility], Department of Surgical Pathology, ??[facility], [place] [id number], ??[place], [place] ??[address] ?? CLIA [id number] History: The patient is a 50-year-old man [...] Surgical Pathology and Flow Cytometry Departments at [facility] as part of an ongoing coding quality coordinator program and in compliance with federally mandated [...] Surgical Pathology and Flow Cytometry Departments of [facility]. ??It has not been cleared or approved by the U. S. Food and Drug Administration. IMAGES AND SCANNED DOCUMENTS, IF INCLUDED, ONLY VIEWABLE IN PDF VERSION OF REPORT us Elian Draper MD LAB PATHOLOG Y ORDERABLES Final Result Performing Organization Address [facility] Co de Phone Number PATHOLOGY [facility] [phone] * (ABNORMAL) POCT glucose (12/17/2020 10:30 AM CDT) Glucose, POC 302(H) 70 - 199 mg/dL MOHINDER WARD Comment: Interpretive Data Glucose is assumed to be non-fasting. Fasting Glucose reference ranges are: 0 - 150 years: ??70 mg/dL - 99 mg/dL Current interpretive data was last revised on 2014. POC Performer [id number] MOHINDER WARD POC Device Number [id number] MOHINDER WARD Glucose comment 1 RN/MD Notified MOHINDER WARD Blood 12/17/2020 10:3 0 AM CDT 12/17/2020 10:30 AM CDT us Elian Draper MD LAB POCT ORD ERABLES - DEVICE Final Result Performing Organization Address City/[facility]/ZIP Co de Phone Number MOHINDER MICHELCH [address] [facility]. [place] [address] * COLONOSCOPY (12/17/2020 10:24 AM CDT) Anatomical Region Laterality Modality Other Narrative Procedure Note Elian Gross MD - 12/17/2020 10:24 AM CDT ENDOSCOPY LAB Patient Name: Camilo Curry Procedure Date: 12/17/2020 10:24 AM Date of : 1970 Admit Type: Outpatient Age: 50 Gender: Male Attending MD: Elian Vivar M.D. Room: [facility] ENDOSCOPY ROOM 02 Note Status: Finalized [...] the physician, the nurse, the anesthesiologist, the wharf builder and thetechnician in the pre-procedure area in [...] The scope was passed under direct vision.The [id number] was introduced through the anusand advanced to the hepatic flexure. The colonoscopywas performed without difficulty. The patient tolerated the procedure well. The quality of the bowel preparation was unsatisfactory. The quality of the bowel preparation was evaluated using the BBPS([place] Bowel Preparation Scale) with scores of: RightColon [...] 10:24 AM us Elian Draper MD ENDOSCOPY WI OCEDURES Final Result * EGD (12/17/2020 10:01 AM CDT) Anatomical Region Laterality Modality Other Narrative Procedure Note Elian Gross MD - 12/17/2020 10:01 AM CDT ENDOSCOPY LAB Patient Name: Camilo Curry Procedure Date: 12/17/2020 10:01 AM Date of : 1970 Admit Type: Outpatient Age: 50 Gender: Male Attending MD: Elian Vivar M.D. Room: [facility] ENDOSCOPY ROOM 02 Note Status: Finalized [...] the physician, the nurse, the anesthesiologist, the wharf builder and thetechnician in the pre-procedure area in [...] and oxygen saturations were monitored continuously. The [id number] was introduced through the mouth, and advanced [...] 10:01 AM us Elian Draper MD ENDOSCOPY WI OCEDURES Final Result * (ABNORMAL) POCT glucose (12/17/2020 9:40 AM CDT) Glucose, POC 278(H) 70 - 199 mg/dL MOHINDER WARD Comment: Interpretive Data Glucose is assumed to be non-fasting. Fasting Glucose reference ranges are: 0 - 150 years: ??70 mg/dL - 99 mg/dL Current interpretive data was last revised on 2014. POC Performer [id number] MOHINDER [facility] POC Device Number [id number] MOHINDER [facility] Blood 12/17/2020 9:40 AM CDT 12/17/2020 9:40 AM CDT us Elian Draper MD LAB POCT ORD ERABLES - DEVICE Final Result MOHINDER [facility]HELWCH [address] [facility] Department [place] [address] documented in this encounter Visit Diagnoses Diagnosis [...] 12/17/2020 documented in this encounter Care Teams Analytics Leader Relationship Specialty Start Date End Date Braydon Pavon PA [address] [place] [address] PCP - General Family Practice 05/09/20 05/19/21 Nikolay Lancaster MD [address] [address] 05/09/20 05/19/21 documented as of this encounter
--- OUTSIDE RECORDS SUMMARY | 2024-05-08 06:08 | XMS_ITS | Encounter Summary ---
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
--- OUTSIDE RECORDS SUMMARY | 2024-05-08 06:08 | XMS_ITS | Encounter Summary ---
Author Organization [facility] Medical Group Address [address] [place] [address] Care Team Providers Care District Loss Prevention Manager Name Role Phone Braydon Pavon Primary Care Provider [phone] Nikolay Lancaster MD Unavailable [phone] Reason for Visit * Reason Onset Date Comments patient call other 07/03/2020 Encounter Details Date Type Department Care Team (Late st Contact Info) Description 07/03/2020 [facility]phone [facility] [address] [facility] [address] [place] [address] [place] Lind[place], [place] [address] [facility] [address], [place] [address] patient call other Social History Tobacco Use Types Packs/Day Years Used Date Smoking Tobacco: Former Smokeless Tobacco: Never Alcohol Use Standard Drinks/Week Comments No 0 (1 standard drink = 0.6 oz pur e alcohol) Sex and Gender Information Value Date Recorded Sex Assigned at Not on file 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 Gender Identity Male 10/29/2020 12:37 PM CDT Sexual Orientation Straight 10/29/2020 12 :37 PM CDT documented as of this encounter Miscellaneous Notes * Telephone Encounter - Wanda Bro - 07/03/2020 3:17 PM CST Patient referred to ENDO for diabetes Called patient lmom mailed new patient referral letter Records scanned R INSPECTOR documented in this encounter Plan of Treatment Not on file documented as of this encounter Visit Diagnoses Not on filedocumented in this encounter Care Teams District Loss Prevention Manager Relationship Specialty Start Date End Date Braydon Pavon PA [address] [place] [address] PCP - General Family Practice 05/09/20 05/19/21 Nikolay Lancaster MD [address] [place] [address] 05/09/20 05/19/21 documented as of this encounter
--- OUTSIDE RECORDS SUMMARY | 2024-05-08 06:08 | XMS_ITS | Encounter Summary ---
Author Organization [facility] Address [address] [place] [address] Phone Care Team Providers Care Health Insurance Assessor Name Role Phone Braydon Pavon Primary Care Provider [phone] Nikolay Lancaster MD Unavailable [phone] Reason for Visit * Reason Onset Date Comments GI Pre Procedure Assessment 11/27/2020 Encounter Details Date Type Department Care Team (Late st Contact Info) Description 11/27/[address] [facility] Gastroenterology [address] 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 ----- Message from Brianna Vázquez LPN [...] Chest pain noted in the past, local scientific associate cleared him for procedures RESPIRATORY/LUNG: None RENAL/LIVER/GI: Cirrhosis- If therapeutic procedure (other than EGD for varices) or if colonoscopy,need recent plt>50 and fibrinogen >120. Otherwise escalate to physician to consider cryoprecipiate or BRIT BLEEDING/CLOTTING: None NEUROLOGICAL: None ENDOCRINE: Diabetes- No BG above 250 or AIC >10 for SC. No BG =>400 for [facility]. Bg>300 at [facility] may get rescheduled PRIOR PROCEDURE ISSUES: None SHACTOR HELPER/: NA IMPLANTS.: None Notes: DIABETIC MEDS Y/N: [...] [] Location limitations: Scheduling Scheduling location limitations:NONE Product Safety Compliance Leader needed [x] NA Language: POA [x] NA Name: SPECIAL PROCEDURE INSTRUCTIONS Procedure information Date of procedure: 12-17-2020 Time of procedure: 10:15 am Arrival time: 9:15 am Location: [facility] Proceduralist: Elian Estrada Instructions Method of instructions: Mailed copy and Verbal [x]Confirmation of ride/pediatric nurse [x]Post anesthesia restrictions given [x]NPO Instructions: [x]Diet [...] on filedocumented in this encounter Care Teams Health Insurance Assessor Relationship Specialty Start Date End Date Braydon Pavon PA [address] [place] [address] PCP - General Family Practice 05/09/20 05/19/21 Nikolay Lancaster MD [address] [place] [address] 05/09/20 05/19/21 documented as of this encounter
--- OUTSIDE RECORDS SUMMARY | 2024-05-08 06:08 | XMS_ITS | Encounter Summary ---
Author Organization [facility] Healthcare Address [address] [place] [address] Care Team Providers Care Broadcast Checker Name Role Phone Braydon Pavon Primary Care Provider [phone] Nikolay Lancaster MD Unavailable [phone] Encounter Details Date Type Department Care Team (Late st Contact Info) Description 12/17/2020 10:15 AM CDT - 12/17/2020 11:15 AM CDT Surgery [facility] Endoscopy [address] [place] [address] Elian Gross MD [address] [address] ESOPHAGOGASTRODUODENOSCOPY Surgery Details Date/Time Status Location OR Service Patient Class Case Class Case Type Trauma Case? 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 * Procedural Sedation (AfterCare(R) Instructions(ER/ED)) (Uz[place]) documented in this encounter Medications at Time [...] hyperglycemia, with long-term current use of insulin ([facility]) One sensor every 14 days 6 kit [...] the skin every 7 days Sample Lot [id number] Exp 03/03/2023 x 2 pens 2 pen [...] 1 % gel 11/20/20 Tyler Page MD wmyriht-gqzrIHBytei-ibccpbokhhpyyjf (Virtussin DAC) 2-20-6 mg/mL syrup every 6 [...] the skin every 7 days Sample Lot [id number] Exp 03/03/2023 x 2 pens 11/07/20 Nacho [...] Attending MD: Elian Draper M.D. Room: [facility] ENDOSCOPY ROOM 02 Note Status: Finalized Procedure: [...] the physician, the nurse, the anesthesiologist, the band head saw operator and the data entry technician in the pre-procedure area in the [...] scope was passed under direct vision. The [id number] was introduced through the anus and advanced to the hepatic flexure. The colonoscopy was performed without difficulty. The patient tolerated the procedure well. The quality of the bowel preparation was unsatisfactory. The quality of the bowel preparation was evaluated using the BBPS ([place] Bowel Preparation Scale) with scores of: Right [...] Attending MD: Elian Draper M.D. Room: [facility] ENDOSCOPY ROOM 02 Note Status: Finalized Procedure: [...] the physician, the nurse, the anesthesiologist, the band head saw operator and the data entry technician in the pre-procedure area in the [...] and oxygen saturations were monitored continuously. The [id number] was introduced through the mouth, and advanced [...] Bowel prep When you arrive, come to [facility] hospital entrance. There is a [address] with free tire shop mechanic parking, or you may park in front [...] mask at all times My number is [phone] documented in this encounter Plan of Treatment [...] was last revised on 2014. POC Performer [id number] MOHINDER WARD POC Device Number [id number] MOHINDER WARD Glucose comment 1 RN/MD Notified MOHINDER WARD Blood 12/17/2020 11:0 4 AM CDT 12/17/2020 11:04 AM CDT us Elian Draper MD LAB POCT ORD ERABLES - DEVICE Final Result MOHINDER [facility] [address] [facility]. Department [place] [address] * Surgical pathology (12/17/2020 10:34 AM CDT) Tissue (Polyp(s), colon/colorectal, esophageal, gastric) 12/17/2020 10:34 AM CDT Narrative PATHOLOGY [facility] - 12/18/2020 2:08 PM CDT EPIC results best viewed via link to PDF [facility] [place] [address] Note to Patients: This report may contain [...] Gender: ??M : ??1970 (Age: 50) Address: ??[address] [place] [address] Hospital #: ??[id number] Taken:12/17/2020 Received:12/17/2020 Reported: 12/18/2020 Patient Type: WC [...] interpretation for this case was performed at [facility], Department of Surgical Pathology, ??[facility] [address], [id number], ??[place], [place] ??[address] ?? CLIA [id number] History: The patient is a 50-year-old man [...] Surgical Pathology and Flow Cytometry Departments at [facility] as part of an ongoing quality improvement manager program and in compliance with federally mandated [...] Surgical Pathology and Flow Cytometry Departments of [facility]. ??It has not been cleared or approved by the U. S. Food and Drug Administration. IMAGES AND SCANNED DOCUMENTS, IF INCLUDED, ONLY VIEWABLE IN PDF VERSION OF REPORT us Elian Draper MD LAB PATHOLOG Y ORDERABLES Final Result Performing Organization Address City/[facility]/ZIP Co de Phone Number PATHOLOGY [facility] [phone] * (ABNORMAL) POCT glucose (12/17/2020 10:30 AM CDT) Glucose, POC 302(H) 70 - 199 mg/dL MOHINDER WARD Comment: Interpretive Data Glucose is assumed to be non-fasting. Fasting Glucose reference ranges are: 0 - 150 years: ??70 mg/dL - 99 mg/dL Current interpretive data was last revised on 2014. POC Performer [id number] [facility] POC Device Number [id number] [facility] Glucose comment 1 RN/MD Notified MOHINDER WARD Blood 12/17/2020 10:3 0 AM CDT 12/17/2020 10:30 AM CDT us Elian Draper MD LAB POCT ORD ERABLES - DEVICE Final Result Performing Organization Address [facility] Co de Phone Number [facility] [address] [facility] Department [place] [address] * COLONOSCOPY (12/17/2020 10:24 AM CDT) Anatomical Region Laterality Modality Other Narrative Procedure Note Elian Gross MD - 12/17/2020 10:24 AM CDT ENDOSCOPY LAB Patient Name: Camilo Curry Procedure Date: 12/17/2020 10:24 AM Date of : 1970 Admit Type: Outpatient Age: 50 Gender: Male Attending MD: Elian Vivar M.D. Room: [facility] ENDOSCOPY ROOM 02 Note Status: Finalized Procedure: [...] the physician, the nurse, the anesthesiologist, the band head saw operator and thetechnician in the pre-procedure area [...] The scope was passed under direct vision.The [id number] was introduced through the anusand advanced to the hepatic flexure. The colonoscopywas performed without difficulty. The patient tolerated the procedure well. The quality of the bowel preparation was unsatisfactory. The quality of the bowel preparation was evaluated using the BBPS([place] Bowel Preparation Scale) with scores of: RightColon [...] 10:24 AM us Elian Draper MD ENDOSCOPY PA OCEDURES Final Result * EGD (12/17/2020 10:01 AM CDT) Anatomical Region Laterality Modality Other Narrative Procedure Note Elian Gross MD - 12/17/2020 10:01 AM CDT ENDOSCOPY LAB Patient Name: Camilo Curry Procedure Date: 12/17/2020 10:01 AM Date of : 1970 Admit Type: Outpatient Age: 50 Gender: Male Attending MD: Elian Vivar M.D. Room: [facility] ENDOSCOPY ROOM 02 Note Status: Finalized Procedure: [...] the physician, the nurse, the anesthesiologist, the band head saw operator and thetechnician in the pre-procedure area [...] and oxygen saturations were monitored continuously. The [id number] was introduced through the mouth, and advanced [...] 10:01 AM us Elian Draper MD ENDOSCOPY PA OCEDURES Final Result * (ABNORMAL) POCT glucose (12/17/2020 9:40 AM CDT) [facility] Glucose, POC 278(H) 70 - 199 mg/dL MOHINDER WARD Comment: Interpretive Data Glucose is assumed to be non-fasting. Fasting Glucose reference ranges are: 0 - 150 years: ??70 mg/dL - 99 mg/dL Current interpretive data was last revised on 2014. POC Performer [id number] MOHINDER LITTLE POC Device Number [id number] [facility] Blood 12/17/2020 9:40 AM CDT 12/17/2020 9:40 AM CDT us Elian Draper MD LAB POCT ORD ERABLES - DEVICE Final Result [facility] [address] [facility] [place] [address] documented in this encounter Visit Diagnoses Diagnosis [...] 12/17/2020 documented in this encounter Care Teams Broadcast Checker Relationship Specialty Start Date End Date Braydon Pavon PA [address] [place] [address] PCP - General Family Practice 05/09/20 05/19/21 Nikolay Lancaster MD [address] [address] 05/09/20 05/19/21 documented as of this encounter
--- OUTSIDE RECORDS SUMMARY | 2024-05-08 06:08 | XMS_ITS | Encounter Summary ---
Author Organization [facility] Healthcare Address [address] [place] [address] Care Team Providers Care Automotive Service Technician Name Role Phone Braydon Pavon Primary Care Provider [phone] Nikolay Lancaster MD Unavailable [phone] Encounter Details Date Type Department Care Team (Late st Contact Info) Description 12/17/2020 10:02 AM CDT Anesthesia Event [facility] Endoscopy [address] [place] [address] Bismark Edwards MD [address] [facility] [address] [place] [address] Anesthesia Record Procedure Summary Procedure Name Responsible [...] on file 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 Gender Identity Male 10/29/2020 12:37 PM CDT Sexual Orientation Straight 10/29/2020 12 :37 PM CDT documented as of this encounter OR Notes * Anesthesia Postprocedure Evaluation - Bismark Edwards MD - 12/17/2020 2:43 PM CDT Patient: Camilo Curry Procedure Summary Date: 12/17/20 Room / Location: [facility] ENDOSCOPY ROOM 02 / [facility] ENDOSCOPY Anesthesia Start: 1002 Anesthesia Stop: [...] anesthesia Difficult airway: no Staff: Placed by: MANAGER COUNTRY: Judi Vu CRNA Airway prep: Preoxygenated: yes [...] a month 11/20/20 -- Tyler Page MD [id number] (Virtussin DAC) 2-20-6 mg/mL syrup More than [...] the skin every 7 days Sample Lot [id number] Exp 03/03/2023 x 2 pens traMADol (ULTRAM) [...] Medication protocol when under care of a MANAGER COUNTRY Planned anesthesia: General Informed Consent: Anesthesia plan [...] Name Priority Date/Time Associated Diagnosis Comments ME AN PROCEDURE PLACEHOLDER Routine 12/17/2020 10:18 AM CDT ME AN ELECTIVE ENDOTRACHEAL AIRWAY Routine 12/17/2020 10:18 AM CDT documented in this encounter Results * ME AN ELECTIVE ENDOTRACHEAL AIRWAY, ME AN PROCEDURE PLACEHOLDER (12/17/2020 10:18 AM CDT) Narrative Judi uV CRNA - 12/17/2020 10:18 AM CDT Judi Vu CRNA ? 12/17/2020 10:18 AM Airway Patient location: OR Urgency: elective Indications for airway management: anesthesia Difficult airway: no Staff: Placed by: MANAGER COUNTRY: Judi Vu CRNA Airway prep: Preoxygenated: yes [...] mg documented in this encounter Care Teams Automotive Service Technician Relationship Specialty Start Date End Date Braydon Pavon PA [address] [place] [address] PCP - General Family Practice 05/09/20 05/19/21 Nikolay Lancaster MD [address] [address] 05/09/20 05/19/21 documented as of this encounter
--- OUTSIDE RECORDS SUMMARY | 2024-05-08 06:08 | XMS_ITS | Encounter Summary ---
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 Rx# [id number] documented in this encounter Plan of Treatment Not on file documented as of this encounter Visit Diagnoses Not on filedocumented in this encounter Care Teams Health Occupations Teacher Relationship Specialty Start Date End Date Braydon Pavon PA [address] [place] [address] PCP - General Family Practice 05/09/20 05/19/21 Nikolay Lancaster MD [address] [address] 05/09/20 05/19/21 documented as of this encounter
--- OUTSIDE RECORDS SUMMARY | 2024-05-08 06:08 | XMS_ITS | Encounter Summary ---
Author Organization [facility] Healthcare Address [address] [place] [address] Care Team Providers Care Securities Compliance Examiner Name Role Phone Braydon Pavon Primary Care Provider [phone] Nikolay Lancaster MD Unavailable [phone] Simon Lundberg MD Primary Care Provider [phone] Nacho Rodriguez MD Unavailable [phone] Elian Gross MD Unavailable Braydon Pavon Primary Care Provider [phone] Encounter Details Date Type Department Care Team (Late st Contact Info) Description 10/05/2020 Telephone [facility] Imaging [address] [place], [place] [id number] Trice Aldana, RT Social History Tobacco Use [...] on file 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 Gender Identity Male 10/29/2020 12:37 PM CDT Sexual Orientation Straight 10/29/2020 12 :37 PM CDT documented as of this encounter Plan of Treatment Not on file documented as of this encounter Visit Diagnoses Not on filedocumented in this encounter Care Teams Securities Compliance Examiner Relationship Specialty Start Date End Date Braydon Pavon PA [address] [place] [address] PCP - General Family Practice 05/09/20 05/19/21 Simon Lundberg MD [address] [place] [address] PCP - General Family Medicine 05/20/21 08/22/21 Braydon Pavon PA [address] [place] [address] PCP - General 08/23/21 Nikolay Lancaster MD [address] [place] [address] 05/09/20 05/19/21 [place] [address] [address] [facility] [address] [address] Consulting Physician Endocrinology 05/20/21 [place] [address] [address] [facility] [address] [address] Consulting Physician Internal Medicine 05/20/21 documented as of this encounter
--- OUTSIDE RECORDS SUMMARY | 2024-05-08 06:09 | XMS_ITS | Encounter Summary ---
Author Organization 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
--- OUTSIDE RECORDS SUMMARY | 2024-05-08 06:09 | XMS_ITS | Encounter Summary ---
Author Organization [facility] Facility Care Team Providers Care Debug Technician Name Role Phone Unavailable Primary Care Provider Unavailabl e Encounter Details Date Type Department Care Team (Late st Contact Info) Description 12/20/2015 5:19 PM CDT - 12/20/2015 5:57 PM CDT Hospital Encounter [facility] Nabil Flores MD [address] [facility] [place] [address] Encounter for issue of repeat prescription Social History Tobacco Use Types Packs/Day Years Used Date Smoking Tobacco: Never Assessed Sex and Gender Information Value Date Recorded Sex Assigned at Not on file 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
--- OUTSIDE RECORDS SUMMARY | 2024-05-08 06:09 | XMS_ITS | Encounter Summary ---
Author Organization [facility] Facility Care Team Providers Care Tibco Developer Name Role Phone Unavailable Primary Care Provider Unavailabl e Encounter Details Date Type Department Care Team (Latest Contact Info) Description 11/07/2015 11:25 PM CDT - 11/09/2015 11:13 AM CDT Hospital Encounter MERGED WITH [facility] Kisha Hernandez MD [address] [place] [address] Hematemesis; Portal hypertension (CMS/HCC); Nonalcoholic steatohepatitis (BLAND); [...] on file Legal Sex Male 2:52 PM PROVIDER RELATIONS COORDINATOR Gender Identity Male 10/29/2020 12:37 PM [...] AM CDT Patient: CAMILO CURRY Reg No: [id number] U H #: [id number] Admit Dt.: 11/07/2015 : 1970 Room No: 05226-11 Attending: Kisha Quezada M.D. Dictating: Kisha Quezada M.D. ADMISSION HISTORY AND PHYSICAL Date of Service: 11/07/2015 Admitting Diagnoses: 1. Hematemesis. 2. Esophageal varices. 3. Nonalcoholic steatohepatitis (BLAND) cirrhosis. 4. Diabetes. Chief Complaint: Hematemesis. History of Present Illness: This is a 45-year-old male with a history of BLAND cirrhosis, complicated by esophageal varices, status post recent banding, who presented to [facility] ER with complaints of hematemesis. The patient [...] ER. There was attempt to transfer to [place] but, because of reports of hematemesis, it was requested he go to an ICU as opposed to the regular floor; however, the patient was not sick enough for the ICU, and so therefore was not accepted by the ICU. As a result, he ended up being transferred to [facility], where he underwent EGD on November 05, [...] the fact that he did require restraint group home through and recommended he go to the [...] rash that sounded like hives. Medications: 1. Fillmore 5/325 mg 2 tablets twice a day [...] does not drink alcohol. He has a [id number] smoking history, but quit 13 years ago. [...] aggressive hematemesis. We will continue lactulose and Fillmore for the patient's chronic abdominal pain from his cirrhosis. 3. Diabetes. Hold metformin. Continue extra low-dose insulin sliding scale. 4. FEN/prophylaxis: The patient will be n.p.o. after midnight. No subcutaneous heparin for DVT prophylaxis, as the patient ambulates. 5. HE IS FULL CODE. Electronically Authenticated and Edited by: Kisha Quezada M.D. On 11/09/2015 12:56 AM CDT Kisha Quezada M.D. CLA:lizzie #[id number] Editing MT: TD: 11/08/2015 02:35 AM cc: [...] agrees with it. ACC# ??Date Time ??Exam [id number] Dec 24, 2015 09:38:00 31469 Abd Orgn Duplex EXAMINATION: ?LIVER DOPPLER - [...] RAMIREZ M.D. on Dec 24 2015 ??3:46P [id number] Procedure Note Provider, MD Tyler - 08/24/2016 KIERAN RAMIREZ M.D. NILAY CHISHOLM M.D. FINAL REPORT The radiology attending physician has personally reviewed this study, and has reviewed and/or edited this written report and agrees with it. ACC# Date Time Exam [id number] Dec 24, 2015 09:38:00 54956 Abd Orgn Duplex EXAMINATION: LIVER DOPPLER - [...] RAMIREZ M.D. on Dec 24 2015 3:46P [id number] Historical Provider CV VASCULAR PROCEDURES Fi nal [...] agrees with it. ACC# ??Date Time ??Exam [id number] Nov 23, 2015 12:28:00 18098 Chest 2 views Front&Lat EXAMINATION: ?? Chest [...] OKEEFE M.D. on Nov 23 2015 ??3:11P [id number] Procedure Note Provider, MD Tyler - 08/24/2016 KORY OKEEFE M.D. JOSE D ALFONSO M.D. FINAL REPORT The radiology attending physician has personally reviewed this study, and has reviewed and/or edited this written report and agrees with it. ACC# Date Time Exam [id number] Nov 23, 2015 12:28:00 47044 Chest 2 views Front&Lat EXAMINATION: Chest two [...] OKEEFE M.D. on Nov 23 2015 3:11P [id number] Result [facility] Provider IMG XR PROCEDURES Final R esult * DISCHARGE LABORATORY CUMULATIVE REPORT (11/23/2015) Narrative 11/23/2015 Ordered by an unspecified provider. Historical Provider LAB BLOOD ORDERABLES Anastasiya l Result * ELECTROCARDIOGRAPHY (ECG) (11/23/2015) Narrative 11/23/2015 Ordered by an unspecified provider. [facility] Provider ECG ORDERABLES Final Res ult * [...] agrees with it. ACC# ??Date Time ??Exam [id number] Nov 22, 2015 12:44:00 03799 TIPS -initial [id number] Nov 22, 2015 12:44:00 17038 USguide Chavo Acc R [id number] Nov 22, 2015 12:44:00 62497 USguide Chavo Acc R ACC# ??Date Time ??Exam [id number] Nov 22, 2015 12:44:00 29664 TIPS -initial [id number] Nov 22, 2015 12:44:00 88013 USguide Chavo Acc R [id number] Nov 22, 2015 12:44:00 75363 USguide Chavo Acc R EXAMINATION: ?TRANSJUGULAR INTRAHEPATIC PORTOSYSTEMIC SHUNT PLACEMENT PROCEDURE: 1. ??US guided access of the right internal jugular vein and right common femoral vein 2. ??Transjugular intrasystemic portosystemic shunt creation (TIPS) using intravascular ultrasound 3. ??Stent deployment into the newly created shunt ([place]ock Viatorr TIPS Endoprothesis 10 mm x 8 [...] was obtained. Prior to beginning the procedure, [place] Protocol was performed to confirm the patient's [...] centrally followed by placement of a 10 montserratian vascular sheath. Using fluoroscopic guidance, a Lev catheter was advanced into the middle hepatic vein. The skin over the right femoral vein access site was infiltrated with 1% lidocaine. The vein was accessed using real-time ultrasound guidance. A wire was advanced centrally followed by placement of a 10 montserratian vascular sheath. Using fluoroscopic guidance, a Tripware intravascular ultrasound was advanced into the hepatic [...] CHEW M.D. on Nov 23 2015 ??9:04A [id number] Procedure Note Provider, MD Tyler - 08/24/2016 NIEVES CHEW M.D. DUNG WILSON MD FINAL REPORT The radiology attending physician has personally reviewed this study, and has reviewed and/or edited this written report and agrees with it. ACC# Date Time Exam [id number] Nov 22, 2015 12:44:00 60407 TIPS -initial [id number] Nov 22, 2015 12:44:00 66389 USguide Chavo Acc R [id number] Nov 22, 2015 12:44:00 94513 USguide Chavo Acc R ACC# Date Time Exam [id number] Nov 22, 2015 12:44:00 04809 TIPS -initial [id number] Nov 22, 2015 12:44:00 45042 USguide Chavo Acc R [id number] Nov 22, 2015 12:44:00 76656 USguide Chavo Acc R EXAMINATION: TRANSJUGULAR INTRAHEPATIC PORTOSYSTEMIC SHUNT PLACEMENT PROCEDURE: 1. US guided access of the right internal jugular vein and right common femoral vein 2. Transjugular intrasystemic portosystemic shunt creation (TIPS) using intravascular ultrasound 3. Stent deployment into the newly created shunt (K[place]marnock Viatorr TIPS Endoprothesis 10 mm x 8 [...] was obtained. Prior to beginning the procedure, [place] Protocol was performed to confirm the patient's [...] centrally followed by placement of a 10 montserratian vascular sheath. Using fluoroscopic guidance, a Lev catheter was advanced into the middle hepatic vein. The skin over the right femoral vein access site was infiltrated with 1% lidocaine. The vein was accessed using real-time ultrasound guidance. A wire was advanced centrally followed by placement of a 10 montserratian vascular sheath. Using fluoroscopic guidance, a Tripware intravascular ultrasound was advanced into the hepatic [...] CHEW M.D. on Nov 23 2015 9:04A [id number] us Historical Provider MD PATEL IR PROCEDURES [...] agrees with it. ACC# ??Date Time ??Exam [id number] Nov 22, 2015 12:44:00 19732 TIPS -initial [id number] Nov 22, 2015 12:44:00 00139 USguide Chavo Acc R [id number] Nov 22, 2015 12:44:00 55789 USguide Chavo Acc R ACC# ??Date Time ??Exam [id number] Nov 22, 2015 12:44:00 90988 TIPS -initial [id number] Nov 22, 2015 12:44:00 49626 USguide Chavo Acc R [id number] Nov 22, 2015 12:44:00 04165 USguide Chavo Acc R EXAMINATION: ?TRANSJUGULAR INTRAHEPATIC PORTOSYSTEMIC SHUNT PLACEMENT PROCEDURE: 1. ??US guided access of the right internal jugular vein and right common femoral vein 2. ??Transjugular intrasystemic portosystemic shunt creation (TIPS) using intravascular ultrasound 3. ??Stent deployment into the newly created shunt (Kilmarnock Viatorr TIPS Endoprothesis 10 mm x 8 [...] was obtained. Prior to beginning the procedure, [place] Protocol was performed to confirm the patient's [...] centrally followed by placement of a 10 montserratian vascular sheath. Using fluoroscopic guidance, a Lev catheter was advanced into the middle hepatic vein. The skin over the right femoral vein access site was infiltrated with 1% lidocaine. The vein was accessed using real-time ultrasound guidance. A wire was advanced centrally followed by placement of a 10 montserratian vascular sheath. Using fluoroscopic guidance, a Tripware intravascular ultrasound was advanced into the hepatic [...] CHEW M.D. on Nov 23 2015 ??9:04A [id number] Procedure Note Provider, MD Tyler - 08/24/2016 Amber CHAVEZ MD FINAL REPORT The radiology attending physician has personally reviewed this study, and has reviewed and/or edited this written report and agrees with it. ACC# Date Time Exam [id number] Nov 22, 2015 12:44:00 31581 TIPS -initial [id number] Nov 22, 2015 12:44:00 24406 USguide Chavo Acc R [id number] Nov 22, 2015 12:44:00 09515 USguide Chavo Acc R ACC# Date Time Exam [id number] Nov 22, 2015 12:44:00 56288 TIPS -initial [id number] Nov 22, 2015 12:44:00 60389 USguide Chavo Acc R [id number] Nov 22, 2015 12:44:00 75094 [facility] R EXAMINATION: TRANSJUGULAR INTRAHEPATIC PORTOSYSTEMIC SHUNT PLACEMENT PROCEDURE: 1. US guided access of the right internal jugular vein and right common femoral vein 2. Transjugular intrasystemic portosystemic shunt creation (TIPS) using intravascular ultrasound 3. Stent deployment into the newly created shunt (Kilmarnock Viatorr TIPS Endoprothesis 10 mm x 8 [...] was obtained. Prior to beginning the procedure, Kingston Protocol was performed to confirm the patient's [...] centrally followed by placement of a 10 montserratian vascular sheath. Using fluoroscopic guidance, a Lev catheter was advanced into the middle hepatic vein. The skin over the right femoral vein access site was infiltrated with 1% lidocaine. The vein was accessed using real-time ultrasound guidance. A wire was advanced centrally followed by placement of a 10 montserratian vascular sheath. Using fluoroscopic guidance, a Tripware intravascular ultrasound was advanced into the hepatic [...] CHEW M.D. on Nov 23 2015 9:04A [id number] us Historical Provider MD PATEL US PROCEDURES [...] agrees with it. ACC# ??Date Time ??Exam [id number] Nov 22, 2015 12:44:00 02828 TIPS -initial [id number] Nov 22, 2015 12:44:00 13708 USguide Chavo Acc R [id number] Nov 22, 2015 12:44:00 72195 USguide Chavo Acc R ACC# ??Date Time ??Exam [id number] Nov 22, 2015 12:44:00 98471 TIPS -initial [id number] Nov 22, 2015 12:44:00 43712 USguide Chavo Acc R [id number] Nov 22, 2015 12:44:00 56583 USguide Chavo Acc R EXAMINATION: ?TRANSJUGULAR INTRAHEPATIC PORTOSYSTEMIC SHUNT PLACEMENT PROCEDURE: 1. ??US guided access of the right internal jugular vein and right common femoral vein 2. ??Transjugular intrasystemic portosystemic shunt creation (TIPS) using intravascular ultrasound 3. ??Stent deployment into the newly created shunt (Kilmarnock Viatorr TIPS Endoprothesis 10 mm x 8 [...] was obtained. Prior to beginning the procedure, Kingston Protocol was performed to confirm the patient's [...] centrally followed by placement of a 10 montserratian vascular sheath. Using fluoroscopic guidance, a Lev catheter was advanced into the middle hepatic vein. The skin over the right femoral vein access site was infiltrated with 1% lidocaine. The vein was accessed using real-time ultrasound guidance. A wire was advanced centrally followed by placement of a 10 montserratian vascular sheath. Using fluoroscopic guidance, a Tripware intravascular ultrasound was advanced into the hepatic [...] CHEW M.D. on Nov 23 2015 ??9:04A [id number] Procedure Note Provider, MD Tyler - 08/24/2016 NIEVES CHEW M.D. DUNG WILSON MD FINAL REPORT The radiology attending physician has personally reviewed this study, and has reviewed and/or edited this written report and agrees with it. ACC# Date Time Exam [id number] Nov 22, 2015 12:44:00 72975 TIPS -initial [id number] Nov 22, 2015 12:44:00 47614 USguide Chavo Acc R [id number] Nov 22, 2015 12:44:00 13819 USguide Chavo Acc R ACC# Date Time Exam [id number] Nov 22, 2015 12:44:00 67857 TIPS -initial [id number] Nov 22, 2015 12:44:00 53723 USguide Chavo Acc R [id number] Nov 22, 2015 12:44:00 09468 USguide Chavo Acc R EXAMINATION: TRANSJUGULAR INTRAHEPATIC PORTOSYSTEMIC SHUNT PLACEMENT PROCEDURE: 1. US guided access of the right internal jugular vein and right common femoral vein 2. Transjugular intrasystemic portosystemic shunt creation (TIPS) using intravascular ultrasound 3. Stent deployment into the newly created shunt (Kilmarnock Viatorr TIPS Endoprothesis 10 mm x 8 [...] was obtained. Prior to beginning the procedure, Kingston Protocol was performed to confirm the patient's [...] centrally followed by placement of a 10 montserratian vascular sheath. Using fluoroscopic guidance, a Lev catheter was advanced into the middle hepatic vein. The skin over the right femoral vein access site was infiltrated with 1% lidocaine. The vein was accessed using real-time ultrasound guidance. A wire was advanced centrally followed by placement of a 10 montserratian vascular sheath. Using fluoroscopic guidance, a Tripware intravascular ultrasound was advanced into the hepatic [...] CHEW M.D. on Nov 23 2015 9:04A [id number] us Historical Provider MD PATEL US PROCEDURES Final R esult * All Microbiology Report Section (11/20/2015 12:00 AM CDT) 11/20/2015 Narrative CDR HISTORICAL RESULTS - 11/25/2015 6:28 AM CDT ? [facility] ?[address] [facility] ?[place], [place] [address] ? Patient Name: ??CAMILO CRURY ? Med Rec Number: [id number] ? Fin Number: ?[id number] ? Date: ?1970 ? Sex/Age: ? Male 45 years ? Admit Date: ?11/18/2015 ? Discharge Date: 11/23/2015 ? Doctor: ?Jannet Lockwood ? Facility: ?[facility] ? Location: ?0101 [address] 02 ?* Abnormal ??A Alert ??f Footnote [...] ??Interpretive Results ??* * * ? (1)The [employer] (formerly known as [employer]) ? FilmArray Respiratory Panel (RP) assay is [...] FilmArray RP assay is FDA cleared for DAIRY EQUIPMENT INSTALLER ? swabs. ??Additional sample types have been validated according to ? CLIA regulations. ??The performance characteristics of this assay ? have been determined by [facility] ? Lab.Current interpretive data was last [...] agrees with it. ACC# ??Date Time ??Exam [id number] Nov 19, 2015 09:39:00 69708 Chest 1 view Frontal EXAMINATION: ?? Chest one view IMPRESSION: ?? Comparison study from [facility] is dated 11/03/2015. Small lung volumes. Mild left basilar and minimal right basilar atelectasis. No pneumothorax or pleural effusion. No focal consolidation. The cardiomediastinal silhouette is stable. Requested By: Dictated By: ?? MAYRA CALLE M.D. ??on Nov 19 2015 10:51A This document has been electronically signed by: LAI BRITO M.D. on Nov 19 2015 11:27A [id number] Procedure Note Provider, Historical, - 04/23/2017 LAI BRITO M.D. MAYRA CALLE M.D. FINAL REPORT The radiology attending physician has personally reviewed this study, and has reviewed and/or edited this written report and agrees with it. ACC# Date Time Exam [id number] Nov 19, 2015 09:39:00 47548 Chest 1 view Frontal EXAMINATION: Chest one view IMPRESSION: Comparison study from [facility] is dated 11/03/2015. Small lung volumes. Mild left basilar and minimal right basilar atelectasis. No pneumothorax or pleural effusion. No focal consolidation. The cardiomediastinal silhouette is stable. Requested By: Dictated By: MAYRA CALLE M.D. on Nov 19 2015 10:51A This document has been electronically signed by: LAI BRITO M.D. on Nov 19 2015 11:27A [id number] us Historical Provider IMWaylon XR PROCEDURES Final R esult * All Microbiology Report Section (11/19/2015 12:00 AM CDT) 11/19/2015 Narrative CDR HISTORICAL RESULTS - 11/25/2015 6:28 AM CDT ? [facility] ?[address] [facility] ?[place], [place] [address] ? Patient Name: ??CAMILO CURRY ? Med Rec Number: [id number] ? [facility] Number: ?[id number] ? Date: ?1970 ? Sex/Age: ? Male 45 years ? Admit Date: ?11/18/2015 ? Discharge Date: 11/23/2015 ? Doctor: ?Svancarek , Jannet B ? Facility: ?[facility] ? Location: ?0101 [address] 02 ?* Abnormal ??A Alert ??f Footnote [...] identification may be ? performed using the [employer] Nanosphere Gram Positive Blood ? Culture Assay. ??The Nanosphere assay detects microbial DNA in ? positive blood culture broth via hybridization of target DNA to ? capture oligonucleotides on a microarray. ??This assay has been ? cleared by the [place] Food and Drug Administration and ? its performance characteristics have been verified by the ? [facility].Current ? Interpretive Data was last revised on 2013. ? us Historical Provider MD LAB MICROBIOLOGY - GENERA L ORDERABLES Final Result CDR HISTORICAL RESULTS * All Microbiology Report Section (11/19/2015 12:00 AM CDT) 11/19/2015 Narrative CDR HISTORICAL RESULTS - 11/25/2015 6:28 AM CDT ? [facility] ?[facility] ?[facility] [address] ? Patient Name: ??CAMILO CURRY ? Med Rec Number: [id number] ? Fin Number: ?[id number] ? Date: ?1970 ? Sex/Age: ? Male 45 years ? Admit Date: ?11/18/2015 ? Discharge Date: 11/23/2015 ? Doctor: ?Jannet Lockwood B ? Facility: ?[facility] ? Location: ?0101 [address] 02 ?* Abnormal ??A Alert ??f Footnote [...] identification may be ? performed using the [employer] Nanosphere Gram Positive Blood ? Culture Assay. ??The Nanosphere assay detects microbial DNA in ? positive blood culture broth via hybridization of target DNA to ? capture oligonucleotides on a microarray. ??This assay has been ? cleared by the [place] Food and Drug Administration and ? its performance characteristics have been verified by the ? [facility].Current ? Interpretive Data was last revised on 2013. ? us Historical Provider LAB MICROBIOLOGY - GENERA L ORDERABLES Final Result CDR HISTORICAL RESULTS * UPPER GASTROINTESTINAL ENDOSCOPY REPORT (11/19/2015) Anatomical Region Laterality Modality Other Narrative 11/19/2015 Ordered by an unspecified provider. Result [facility] Historical Provider GI PROCEDURE ORDERABLES F inal Result * ELECTROCARDIOGRAPHY (ECG) (11/19/2015) Narrative 11/19/2015 Ordered by an unspecified provider. Result [facility] Provider ECG ORDERABLES Final Res ult * Blood glucose, POC (11/09/2015 7:58 AM CDT) [facility] Glucose, POC, bld 117 70 - 199 mg/dl HISTORICAL RESULTS Blood specimen (specimen) 11/09/2015 7:58 AM CDT Result [facility] Kisha Quezada MD LAB BLOOD ORDERABLES Anastasiya l Result HISTORICAL RESULTS * DISCHARGE LABORATORY CUMULATIVE REPORT (11/09/2015) Narrative 11/09/2015 Ordered by an unspecified provider. Result [facility] Camilo RED LAB BLOOD ORDERABLES Anastasiya l Result * (ABNORMAL) Blood cell count (CBC) (11/08/2015 9:08 PM CDT) [facility] WBC 3.0(L) 3.8 - 9.9 K/cumm [...] specimen (specimen) 11/08/2015 9:08 PM CDT Result [facility] Marian Ayala MD LAB BLOOD ORDERABLES [...] specimen (specimen) 11/08/2015 9:08 PM CDT Result [facility] Marian Ayala MD LAB BLOOD ORDERABLES Final R esult Performing Organization Address [facility] Co de Phone Number HISTORICAL RESULTS * Blood glucose, POC (11/08/2015 8:22 PM CDT) Glucose, POC, bld 187 70 - 199 mg/dl HISTORICAL RESULTS Blood specimen (specimen) 11/08/2015 8:22 PM CDT Result [facility] Kisha Quezada MD LAB BLOOD ORDERABLES Anastasiya l Result HISTORICAL RESULTS * Blood glucose, POC (11/08/2015 4:59 PM CDT) Glucose, POC, bld 113 70 - 199 mg/dl HISTORICAL RESULTS Blood specimen (specimen) 11/08/2015 4:59 PM CDT Kisha Quezada MD LAB BLOOD ORDERABLES Anastasiya l Result Performing Organization Address [facility] Co de Phone Number HISTORICAL RESULTS * Blood glucose, POC (11/08/2015 1:38 PM CDT) Glucose, POC, bld 109 70 - 199 mg/dl HISTORICAL RESULTS Blood specimen (specimen) 11/08/2015 1:38 PM CDT Kisha Quezada MD LAB BLOOD ORDERABLES Anastasiya l Result Performing Organization Address [facility] de Phone Number HISTORICAL RESULTS * (ABNORMAL) Plasma prothrombin time (PT) (11/08/2015 10:45 AM CDT) Pathologist [facility] Prothrombin time (PT) 14.0(H) 9.2 - 13.0 [...] updated copy of the Tool Book at [email or web address] Current Interpretive Data was last revised 2011. Plasma 11/08/2015 10:4 5 AM CDT Marian Ayala MD LAB BLOOD ORDERABLES Final R formerly [facility] Performing Organization Address [facility] Co de Phone Number HISTORICAL RESULTS [...] ORDERABLES Final R ult Performing Organization Address City/State/[facility] Co de Phone Number HISTORICAL RESULTS [...] Blood glucose, POC (11/08/2015 7:56 AM CDT) [facility] Glucose, POC, bld 131 70 - 199 mg/dl HISTORICAL RESULTS Blood specimen (specimen) 11/08/2015 7:56 AM CDT Kisha Quezada MD LAB BLOOD ORDERABLES Anastasiya l Result Performing Organization Address City/[facility]/ZIP Co de Phone Number HISTORICAL RESULTS * [...] agrees with it. ACC# ??Date Time ??Exam [id number] Nov 08, 2015 06:15:00 69316 Abdomen single view AP EXAMINATION: ?Abdomen single [...] FRIEDMAN M.D. on Nov 08 2015 10:38A [id number] Procedure Note Provider, Tyler, - 08/24/2016 BERNARDINO FRIEDMAN M.D. PAM FITZPATRICK M.D. FINAL REPORT The radiology attending physician has personally reviewed this study, and has reviewed and/or edited this written report and agrees with it. ACC# Date Time Exam [id number] Nov 08, 2015 06:15:00 75778 Abdomen single view AP EXAMINATION: Abdomen single view AP HISTORY: Recent EGD with severe abdominal pain FINDINGS: One view of the abdomen is submitted over 2 exposures with comparison to 08/24/2015. The visualized bowel gas pattern is normal. There is splenomegaly. IMPRESSION: Normal gas pattern with splenomegaly. Requested By: KISHA QUEZADA M.D. Dictated By: PAM FITZPATRICK M.D. on Nov 08 2015 9:15A This document has been electronically signed by: BERNARDINO FRIEDMAN M.D. on Nov 08 2015 10:38A [id number] us Historical Provider IMG XR PROCEDURES Final [...] specimen (specimen) 11/08/2015 3:12 AM CDT Result [facility] Kisha Quezada MD LAB BLOOD ORDERABLES Anastasiya l Result Performing Organization Address City/[facility] Co de Phone Number HISTORICAL RESULTS * Blood glucose, POC (11/08/2015 12:06 AM CDT) Pathologist [facility] Glucose, POC, bld 94 70 - 199 mg/dl HISTORICAL RESULTS Blood specimen (specimen) 11/08/2015 12:06 AM CDT Result [facility] Kisha Quezada MD LAB BLOOD ORDERABLES Anastasiya l Result Performing Organization Address [facility] Co de Phone Number HISTORICAL RESULTS * UPPER GASTROINTESTINAL ENDOSCOPY REPORT (11/08/2015) Anatomical Region Laterality Modality Other Narrative 11/08/2015 Ordered by an unspecified provider. Result [facility] Historical Provider GI PROCEDURE ORDERABLES F inal Result * Blood check sample (11/07/2015 7:49 PM CDT) Pathologist [facility] ABO, Rho(D) A Positive HISTORI AGUILA RESULTS Blood specimen (specimen) 11/07/2015 7:49 PM CDT Historical Provider LAB BLOOD ORDERABLES Anastasiya l Result Performing Organization Address City/[facility] Co de Phone Number HISTORICAL RESULTS * Plasma hepatic function panel (11/07/2015 7:25 PM CDT) Pathologist [facility] Protein, pl 8.1 6.5 - 8.5 g/dl [...] ORDERABLES Final Res ult Performing Organization Address [facility] de Phone Number HISTORICAL RESULTS [...] ORDERABLES Final Res ult Performing Organization Address [facility] de Phone Number HISTORICAL RESULTS [...] ORDERABLES Final Res ult Performing Organization Address [facility] de Phone Number HISTORICAL RESULTS * Blood ABO, Rh, indirect ab screen (11/07/2015 7:25 PM CDT) ABO, Rho(D) A Positive HISTORI AGUILA RESULTS Steve, indirect Negative HISTORICAL RESULTS Blood specimen (specimen) 11/07/2015 7:25 PM CDT Mario Ren MD LAB BLOOD ORDERABLES Final Res ult Performing Organization Address [facility] de Phone Number HISTORICAL RESULTS [...]
--- OUTSIDE RECORDS SUMMARY | 2024-05-08 06:09 | XMS_ITS | Encounter Summary ---
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
--- OUTSIDE RECORDS SUMMARY | 2024-05-08 06:09 | XMS_ITS | Encounter Summary ---
Author Organization [facility] Facility Care Team Providers Care Toppiece Chopper Name Role Phone Unavailable Primary Care Provider Unavailabl e Encounter Details Date Type Department Care Team (Latest Contact Info) Description 11/19/2015 3:45 AM CDT - 11/23/2015 7:53 PM CDT Hospital Encounter [facility] Ofelia Sanchez MD [address] [place] [address] Portal hypertension (CMS/HCC); Secondary esophageal varices with bleeding (CMS/HCC); Hematemesis; Other cirrhosis of liver (CMS/HCC); Other neutropenia (CMS/HCC); Type 2 diabetes mellitus without complications (CMS/HCC); Iron deficiency anemia; Essential (primary) hypertension; Hypersplenism; Nonalcoholic steatohepatitis (BLAND); Other diseases of stomach and duodenum; Duodenitis without bleeding; long-term current use of insulin (CMS/HCC); Fever presenting with conditions classified elsewhere Social History Tobacco Use Types Packs/Day Years Used Date Smoking Tobacco: Never Assessed Sex and Gender Information Value Date Recorded Sex Assigned at Not on file 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 Gender Identity Male 10/29/2020 12:37 PM [...] glucose, POC (11/23/2015 11:32 AM CDT) Pathologist [facility] Glucose, POC, bld 165 70 - 199 mg/dl CDR HISTORICAL RESULTS Blood specimen (specimen) 11/23/2015 11:32 AM CDT Ofelia Alvarado MD LAB BLOOD ORDERABLES Fin al Result Performing Organization Address [facility]/ZIP Co de Phone Number CDR HISTORICAL RESULTS * (ABNORMAL) Plasma comprehensive metabolic panel (11/23/2015 11:13 AM CDT) Pathologist [facility] Sodium 142 135 - 145 mmol/L CDR [...] RESULTS Plasma 11/23/2015 11:1 3 AM CDT [facility] Provider LAB BLOOD ORDERABLES Anastasiya l Result CDR HISTORICAL RESULTS * Serum troponin I (11/23/2015 11:13 AM CDT) Pathologist [facility] Troponin I <0.03 0.00 - 0.03 ng/ml CDR HISTORICAL RESULTS Comment: Interpretive Data Serial determinations are recommended for the diagnosis of myocardial infarction (Third [place] Definition of Myocardial Infarction. ??J Am Tor Cardiol 2012;60:1581-98). Current interpretive data was last revised on 13. Serum 11/23/2015 11:1 3 AM CDT [facility] Provider LAB BLOOD ORDERABLES Anastasiya l Result Performing Organization Address [facility] de Phone Number CDR HISTORICAL RESULTS * Blood glucose, POC (11/23/2015 6:40 AM CDT) Glucose, POC, bld 92 70 - 199 mg/dl CDR HISTORICAL RESULTS Blood specimen (specimen) 11/23/2015 6:40 AM CDT Ofelia Alvarado MD LAB BLOOD ORDERABLES Fin al Result Performing Organization Address [facility] de Phone Number CDR HISTORICAL RESULTS * [...] ORDERABLES Final Resul t Performing Organization Address [facility] de Phone Number CDR HISTORICAL RESULTS * Blood glucose, POC (11/22/2015 9:05 PM CDT) Glucose, POC, bld 192 70 - 199 mg/dl CDR HISTORICAL RESULTS Blood specimen (specimen) 11/22/2015 9:05 PM CDT Ofelia Alvarado MD LAB BLOOD ORDERABLES Fin al Result Performing Organization Address [facility] de Phone Number CDR HISTORICAL RESULTS * Blood glucose, POC (11/22/2015 5:12 PM CDT) Glucose, POC, bld 126 70 - 199 mg/dl CDR HISTORICAL RESULTS Blood specimen (specimen) 11/22/2015 5:12 PM CDT Ofelia Alvarado MD LAB BLOOD ORDERABLES Fin al Result Performing Organization Address [facility] de Phone Number CDR HISTORICAL RESULTS * Blood ABO, Rh, indirect ab screen (11/22/2015 9:45 AM CDT) ABO, Rho(D) A Positive CDR HIS TORICAL RESULTS Steve, indirect Negative CDR HISTORICAL RESULTS Blood specimen (specimen) 11/22/2015 9:45 AM CDT Ofelia Alvarado MD LAB BLOOD ORDERABLES Fin al Result Performing Organization Address [facility] de Phone Number CDR HISTORICAL RESULTS * Blood glucose, POC (11/22/2015 6:49 AM CDT) Glucose, POC, bld 171 70 - 199 mg/dl CDR HISTORICAL RESULTS Blood specimen (specimen) 11/22/2015 6:49 AM CDT Ofelia Alvarado MD LAB BLOOD ORDERABLES Fin al Result Performing Organization Address [facility] de Phone Number CDR HISTORICAL RESULTS * [...] ORDERABLES Final Resul t Performing Organization Address [facility] de Phone Number CDR HISTORICAL RESULTS * [...] updated copy of the Tool Book at [email or web address] Current Interpretive Data was last revised 2011. Plasma 11/21/2015 10:1 7 PM CDT [facility] [employer] LAB BLOOD ORDERABLES Final Resul t Performing Organization Address City/[facility]/ZIP Co de Phone Number CDR HISTORICAL [...] ORDERABLES Fin al Result Performing Organization Address [facility] Phone Number CDR HISTORICAL RESULTS * Blood glucose, POC (11/21/2015 4:51 PM CDT) Glucose, POC, bld 157 70 - 199 mg/dl CDR HISTORICAL RESULTS Blood specimen (specimen) 11/21/2015 4:51 PM CDT Ofelia Alvarado MD LAB BLOOD ORDERABLES Fin al Result Performing Organization Address [facility] Phone Number CDR HISTORICAL RESULTS * Blood glucose, POC (11/21/2015 11:28 AM CDT) Glucose, POC, bld 133 70 - 199 mg/dl CDR HISTORICAL RESULTS Blood specimen (specimen) 11/21/2015 11:28 AM CDT Ofelia Alvarado MD LAB BLOOD ORDERABLES Fin al Result Performing Organization Address [facility] Phone Number CDR HISTORICAL RESULTS * Blood glucose, POC (11/21/2015 6:37 AM CDT) Glucose, POC, bld 102 70 - 199 mg/dl CDR HISTORICAL RESULTS Blood specimen (specimen) 11/21/2015 6:37 AM CDT us Ofelia Alvarado MD LAB BLOOD ORDERABLES Fin al Result Performing Organization Address [facility] de Phone Number CDR HISTORICAL RESULTS * Plasma partial thromboplastin time (PTT) (11/20/2015 10:01 PM CDT) APTT 29.2 25.0 - 37.0 seconds CDR HISTORICAL RESULTS Comment: Interpretive Data Therapeutic heparin range:60.0 - 94.0 sec based on correlation with therapeutic heparin activity range of 0.3 -0.7 Units/mL. Current interpretive data was last revised on 2011. Plasma 11/20/2015 10:0 1 PM CDT [facility] Provider MD LAB BLOOD ORDERABLES Anastasiya l Result Performing Organization Address [facility] de Phone Number CDR HISTORICAL RESULTS * Plasma basic metabolic panel (11/20/2015 10:01 PM CDT) Pathologist [facility] Sodium 138 135 - 145 mmol/L CDR [...] RESULTS Plasma 11/20/2015 10:0 1 PM CDT [facility] Provider LAB BLOOD ORDERABLES Anastasiya l Result Performing Organization Address [facility] de Phone Number CDR HISTORICAL RESULTS * [...] updated copy of the Tool Book at [email or web address] Current Interpretive Data was last [...] RESULTS - 11/20/2015 6:43 PM CDT The [employer]formerly known as [employer] FilmArray Respiratory Panel (RP) assay is a [...] FilmArray RP assay is FDA cleared for BATHROOM TILING PROFESSIONAL swabs. ??Additional sample types have been validated according to CLIA regulations. ??The performance characteristics of this assay have been determined by [facility]. Current interpretive data was last revised on 2013. Narrative CDR HISTORICAL RESULTS - 11/20/2015 6:43 PM CDT Respiratory Pathogen nucleic acids NOT DETECTED (NEGATIVE) Historical Provider LAB MICROBIOLOGY - GENERA L ORDERABLES Final Result Performing Organization Address [facility] de Phone Number CDR HISTORICAL RESULTS * Blood glucose, POC (11/20/2015 11:34 AM CDT) Pathologist [facility] Glucose, POC, bld 110 70 - 199 mg/dl CDR HISTORICAL RESULTS Blood specimen (specimen) 11/20/2015 11:34 AM CDT Ofelia Alvarado MD LAB BLOOD ORDERABLES Fin al Result Performing Organization Address [facility] de Phone Number CDR HISTORICAL RESULTS * [...] updated copy of the Tool Book at [email or web address] Current Interpretive Data was last [...] ORDERABLES Anastasiya l Result Performing Organization Address [facility]/ZIP Co de Phone Number CDR HISTORICAL [...] ORDERABLES Final Resul t Performing Organization Address [facility] de Phone Number CDR HISTORICAL RESULTS * [...] RESULTS Urine 11/19/2015 9:07 AM CDT Matti Holugin LAB BLOOD ORDERABLES Final Resul t Performing Organization Address City/[facility] de Phone Number CDR HISTORICAL RESULTS * Blood glucose, POC (11/19/2015 7:56 AM CDT) Glucose, POC, bld 127 70 - 199 mg/dl CDR HISTORICAL RESULTS Blood specimen (specimen) 11/19/2015 7:56 AM CDT Aung Webb MD LAB BLOOD ORDERABLES Final Result Performing Organization Address [facility] de Phone Number CDR HISTORICAL RESULTS * Blood glucose, POC (11/19/2015 4:40 AM CDT) Glucose, POC, bld 115 70 - 199 mg/dl CDR HISTORICAL RESULTS Blood specimen (specimen) 11/19/2015 4:40 AM CDT Aung Webb MD LAB BLOOD ORDERABLES Final Result Performing Organization Address [facility] de Phone Number CDR HISTORICAL RESULTS * Serum Human Immunodeficiency virus (HIV) 1/2 ab + p24 ag (11/19/2015 4:40 AM CDT) HIV 1/2 ab p24 ag Nonreactive Nonreactive CDR HISTORICAL RESULTS Serum 11/19/2015 4:40 AM CDT Matti Holguin LAB BLOOD ORDERABLES Final Resul t Performing Organization Address [facility] de Phone Number CDR HISTORICAL RESULTS * [...] Blood specimen (specimen) 11/19/2015 4:40 AM CDT [facility] Si LAB BLOOD ORDERABLES Final Resul t Performing Organization Address [facility] de Phone Number CDR HISTORICAL RESULTS * [...] organism identification may be performed using the [employer] Mobile Nanosphere Gram Positive Blood Culture Assay. ??The Nanosphere assay detects microbial DNA in positive blood culture broth via hybridization of target DNA to capture oligonucleotides on a microarray. ??This assay has been cleared by the [place] Food and Drug Administration and its performance characteristics have been verified by the [facility]. Current Interpretive Data was last revised on 2013. Narrative CDR HISTORICAL RESULTS - 11/25/2015 3:55 AM CDT No growth us Historical Provider LAB MICROBIOLOGY - GENERA L ORDERABLES Final Result Performing Organization Address City/[facility] Co de Phone Number CDR HISTORICAL [...] organism identification may be performed using the [employer] Nanosphere Gram Positive Blood Culture Assay. ??The Nanosphere assay detects microbial DNA in positive blood culture broth via hybridization of target DNA to capture oligonucleotides on a microarray. ??This assay has been cleared by the [place] Food and Drug Administration and its performance characteristics have been verified by the [facility]. Current Interpretive Data was last revised on 2013. Narrative CDR HISTORICAL RESULTS - 11/25/2015 3:55 AM CDT No growth Historical Provider LAB MICROBIOLOGY - GENERA L ORDERABLES Final Result Performing Organization Address City/State/[facility] Co de Phone Number CDR HISTORICAL RESULTS * Blood glucose, POC (11/19/2015 3:13 AM CDT) Pathologist [facility] Glucose, POC, bld 87 70 - 199 [...] Boo MD LAB BLOOD ORDERABLES Final R [facility] Performing Organization Address [facility] de Phone Number CDR HISTORICAL RESULTS [...] updated copy of the Tool Book at [email or web address] Current Interpretive Data was last revised 2011. Plasma 11/19/2015 1:02 AM CDT Pranay Boo MD LAB BLOOD ORDERABLES Final R ult Performing Organization Address [facility] de Phone Number CDR HISTORICAL RESULTS * [...] ORDERABLES Final Res ult Performing Organization Address [facility] de Phone Number CDR HISTORICAL RESULTS * [...] ORDERABLES Final Res ult Performing Organization Address [facility] de Phone Number CDR HISTORICAL RESULTS * Serum lipase (11/19/2015 1:02 AM CDT) Lip 50 10 - 99 Units/L CDR HISTORICAL RESULTS Serum 11/19/2015 1:02 AM CDT Mario Ren MD LAB BLOOD ORDERABLES Final Res ult Performing Organization Address [facility] de Phone Number CDR HISTORICAL RESULTS * (ABNORMAL) Blood cell count (CBC) (11/19/2015 1:02 AM CDT) Pathologist [facility] WBC 2.6(L) 3.8 - 9.9 K/cumm CDR [...] ORDERABLES Final Res ult Performing Organization Address [facility] Co de Phone Number CDR HISTORICAL RESULTS * Blood ABO, Rh, indirect ab screen (11/19/2015 1:02 AM CDT) Pathologist [facility] ABO, Rho(D) A Positive CDR HIS TORICAL RESULTS Steve, indirect Negative CDR HISTORICAL RESULTS Blood specimen (specimen) 11/19/2015 1:02 AM CDT Mario Ren MD LAB BLOOD ORDERABLES Final Res ult Performing Organization Address [facility] Co de Phone Number CDR HISTORICAL RESULTS * (ABNORMAL) Blood cell morphologic exam (11/19/2015 1:02 AM CDT) Pathologist [facility] Monos 17.3 % CDR HISTOR ICAL RESULTS [...] Blood glucose, POC (11/19/2015 12:25 AM CDT) [facility] Glucose, POC, bld 94 70 - [...] of stomach and duodenum Duodenitis without bleeding long-term current use of insulin (CMS/HCC) (HCC) Fever presenting with conditions classified elsewhere documented in this encounter
--- OUTSIDE RECORDS SUMMARY | 2024-05-08 06:09 | XMS_ITS | Encounter Summary ---
Author Organization [facility] Healthcare Address [address] [place] [address] Care Team Providers Care Line Puller Name Role Phone Kris Soto MD Primary Care Provide r Encounter Details Date Type Department Care Team (Late st Contact Info) Description 08/27/2017 11:21 PM CDT - 08/28/2017 4:10 PM CDT Hospital Encounter [facility] [address] [place] [address] Harpal Gonzalez MD [address] [place] [address] Raimundo Tran MD [address] [place] [address] Ethel Sawyer MD [address] [place] [address] Discharge Disposition: Discharge to home or self care Social History Tobacco Use Types Packs/Day Years Used Date Smoking Tobacco: Former Sex and Gender Information Value Date Recorded Sex Assigned at Not on file 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 ACC# ??Date Time ??Exam [id number] Aug 28, 2017 10:07:00 [id number] Abd Orgn Duplex [id number] Aug 28, 2017 10:07:00 88046 Sono Abd Lmtd EXAMINATION: ?? 1. LIMITED [...] NAVARRETE M.D. on Aug 28 2017 ??2:29P [id number] GREENE M.D. FINAL REPORT The radiology attending physician has personally reviewed this study, and has reviewed and/or edited this written report and agrees with it. Attending: ??ELFEGO, ??HARPAL Requesting: ??MARC, ??RAIMUNDO Requesting Fax: ?? Attending Fax: ?? Attending ID: ??[id number] Requesting ID: ??[id number] Report To 1 ID: ??[id number] ? Report To 1 Name: ??, ?? Report To 1 FAX: ?? NextGen Order #: ?? Procedure Note Miscellaneous, Not In File - 08/28/2017 DARRELL NAVARRETE M.D. NILAY CHISHOLM M.D. FINAL REPORT The radiology attending physician has personally reviewed this study, and has reviewed and/or edited this written report and agrees with it. ACC# Date Time Exam [id number] Aug 28, 2017 10:07:00 17765 Abd Orgn Duplex [id number] Aug 28, 2017 10:07:00 59426 Sono Abd Lmtd EXAMINATION: 1. LIMITED ABDOMINAL [...] NAVARRETE M.D. on Aug 28 2017 2:29P [id number] GREENE M.D. FINAL REPORT The radiology attending physician has personally reviewed this study, and has reviewed and/or edited this written report and agrees with it. Attending: HARPAL GONZALEZ Requesting: RAIMUNDO TRAN Requesting Fax: Attending Fax: Attending ID: [id number] Requesting ID: [id number] Report To 1 ID: [id number] Report To 1 Name: , Report To [...] agrees with it. ACC# ??Date Time ??Exam [id number] Aug 28, 2017 10:07:00 54048 Abd Orgn Duplex [id number] Aug 28, 2017 10:07:00 97005 Sono Abd Lmtd EXAMINATION: ?? 1. LIMITED [...] by: Darrell Navarrete M.D. Requested By: ETHEL SAWEYR M.D. Dictated By: ?? NILAY CHISHOLM M.D. [...] Fax: ?? Attending Fax: ?? Attending ID: ??[id number] Requesting ID: ??[id number] Report To 1 ID: ??[id number] ? Report To 1 Name: ??, ?? Report To 1 FAX: ?? NextGen Order #: ?? Procedure Note Miscellaneous, Not In File - 08/28/2017 DARRELL NAVARRETE M.D. NILAY CHISHOLM M.D. FINAL REPORT The radiology attending physician has personally reviewed this study, and has reviewed and/or edited this written report and agrees with it. ACC# Date Time Exam [id number] Aug 28, 2017 10:07:00 18309 Abd Orgn Duplex [id number] Aug 28, 2017 10:07:00 91711 Sono Abd Lmtd EXAMINATION: 1. LIMITED ABDOMINAL [...] SAWYER Requesting Fax: Attending Fax: Attending ID: [id number] Requesting ID: [id number] Report To 1 ID: [id number] Report To 1 Name: , Report To 1 FAX: NextGen Order #: Ethel Sawyer MD CV VASCULAR PROCEDURES Anastasiya l Result * (ABNORMAL) Glucose POC (08/28/2017 2:57 PM CDT) Glucose, POC 249(H) 70 - 199 mg/dL [facility] Blood specimen (specimen) 08/28/2017 2:57 PM CDT 08/28/2017 2:57 PM CDT Narrative [facility] - 08/28/2017 2:58 PM CDT us Ethel Sawyer MD POINT OF CARE TEST ORDERABL ES Final Result [facility] [place] [address] * XR Ribs And Pa Chest 3V [...] agrees with it. ACC# ??Date Time ??Exam [id number] Aug 28, 2017 09:22:00 [id number] Ribs Uni,PA Chst(red srv) R EXAMINATION: ??Right [...] M.D. F on Aug 28 2017 10:16A [id number] RDZ M.D. F ROBERT ORTIZ M.D. FINAL REPORT The radiology attending physician has personally reviewed this study, and has reviewed and/or edited this written report and agrees with it. Attending: ??ELFEGO, ??HARPAL Requesting: ??MARC, ??RAIMUNDO Requesting Fax: ?? Attending Fax: ?? Attending ID: ??[id number] Requesting ID: ??[id number] Report To 1 ID: ??[id number] ? Report To 1 Name: ??, ?? Report To 1 FAX: ?? NextGen Order #: ?? Procedure Note Miscellaneous, Not In File - 08/28/2017 COLEEN RDZ M.D. F ROBERT ORTIZ M.D. FINAL REPORT The radiology attending physician has personally reviewed this study, and has reviewed and/or edited this written report and agrees with it. ACC# Date Time Exam [id number] Aug 28, 2017 09:22:00 [id number] Ribs Uni,PA Chst(red srv) R EXAMINATION: Right [...] by: Coleen Rdz M.D. Requested By: RAIMUNDO TARN M.D. Dictated By: ROBERT ORTIZ M.D. on Aug 28 2017 10:11A This document has been electronically signed by: COLEEN RDZ M.D. F on Aug 28 2017 10:16A [id number] RDZ M.D. F ROBERT ORTIZ M.D. FINAL REPORT The radiology attending physician has personally reviewed this study, and has reviewed and/or edited this written report and agrees with it. Attending: HARPAL GONZALEZ Requesting: RAIMUNDO TRAN Requesting Fax: Attending Fax: Attending ID: [id number] Requesting ID: [id number] Report To 1 ID: [id number] Report To 1 Name: , Report To 1 FAX: NextGen Order #: Raimundo Tran MD IMG XR PROCEDURES Edited Result - Final * (ABNORMAL) Glucose POC (08/28/2017 12:04 PM CDT) Glucose, POC 200(H) 70 - 199 mg/dL [facility] Blood specimen (specimen) 08/28/2017 12:04 PM CDT 08/28/2017 12:04 PM CDT Narrative [facility] - 08/28/2017 12:16 PM CDT Ethel Sawyer MD POINT OF CARE TEST ORDERABL ES Final Result Performing Organization Address [facility] Co de Phone Number [facility] [place] [address] * Glucose POC (08/28/2017 7:48 AM CDT) [facility] Glucose, POC 188 70 - 199 mg/dL [facility] Blood specimen (specimen) 08/28/2017 7:48 AM CDT 08/28/2017 7:48 AM CDT Narrative [facility] - 08/28/2017 7:51 AM CDT Ethel Sawyer MD POINT OF CARE TEST ORDERABL ES Final Result Performing Organization Address [facility] Co de Phone Number [facility] [place] [address] * (ABNORMAL) Lipid panel (08/28/2017 2:33 AM CDT) [facility] Cholesterol 115 30 - 200 mg/dL [facility] Comment: Interpretive Data Desirable: ?<200 mg/dL Borderline high: ??200-239 mg/dL High: ? > or = 240 mg/dL Literature Reference: National Cholesterol Education Program (NCEP) Expert Panel on Detection, Evaluation, and Treatment of High Blood Cholesterol in Adults (Adult Treatment Panel III). ??Circulation 2004; 110:227. Current interpretive data was last revised on 2015. Triglycerides 110 0 - 150 mg/dL [facility] Comment: Interpretive Data Desirable: ? < 150 mg/dL Borderline High: ? 150 - 199 mg/dL High: ?200 - 499 mg/dL Very High: ? > or = 499 mg/dL Literature Reference: See Cholesterol Current interpretive data was last revised on 2015. HDL 34(L) >=40 mg/dL [facility] Comment: Interpretive Data Less than 40 mg/dL - low; A major risk factor for heart disease. Greater than or equal to 60 mg/dL - High; ??considered protective of heart disease. Literature Reference: See Cholesterol Current interpretive data was last revised on 2015. LDL, calculated 59 10 - 129 mg/dL [facility] Comment: Interpretive Data Optimal: ? < 100 mg/dL Near Optimal: ?100 - 129 mg/dL Borderline High: ?? 130 - 159 mg/dL High: ?160 - 189 mg/dL Very high: ? > or = 190 mg/dL Literature Reference: See Cholesterol Current interpretive data was last revised on 2015. Non-HDL Cholesterol 81 mg/dL [facility] Comment: Interpretive Data When triglycerides are >200 mg/dL, non-HDL C is a secondary target of therapy, with a goal 30 mg/dL higher than the identified LDL-C goal. Reference: ??See Cholesterol Reference. Current interpretive data was last revised 2015. Blood specimen (specimen) 08/28/2017 2:33 AM CDT 08/28/2017 2:48 AM CDT Narrative [facility] - 08/28/2017 5:53 PM CDT Ethel Sawyer MD LAB BLOOD ORDERABLES Final Result Performing Organization Address [facility] de Phone Number [facility] [place] [address] * (ABNORMAL) Hemoglobin A1c (08/28/2017 2:33 AM CDT) Pathologist [facility] Hgb A1C 8.0(H) 4.0 - 5.6 % [facility] Estimated Average Glucose 183 mg/dL [facility] Comment: The ADA recommends reporting an estimated Average Glucose (eAG) with all Hemoglobin A1c results using the equation derived from a study of 507 normal and diabetic adults. ??Minority populations were underrepresented and children were not included. ?? (Diabetes Care 31:7824-0839, 2007). ??The eAG is not equivalent to a fasting glucose. Blood specimen (specimen) 08/28/2017 2:33 AM CDT 08/28/2017 2:52 AM CDT Narrative [facility] - 08/28/2017 5:15 PM CDT Ethel Sawyer MD LAB BLOOD ORDERABLES Final Result Performing Organization Address [facility] de Phone Number [facility] [place] [address] * (ABNORMAL) Comprehensive metabolic panel (08/28/2017 2:33 AM CDT) [facility] Sodium 140 135 - 145 mmol/L [facility] Potassium, pl 4.6 3.3 - 4.9 mmol/L [facility] CO2 29 22 - 32 mmol/L [facility] BUN 14 8 - 25 mg/dL [facility] Glucose 239(H) 70 - 199 mg/dL [facility] Comment: Interpretive Data Fasting [...] 2017. Creatinine 0.70(L) 0.80 - 1.30 mg/dL [facility] Calcium 9.3 8.5 - 10.3 mg/dL [facility] Chloride 103 97 - 110 mmol/L [facility] Albumin 4.1 3.5 - 5.0 g/dL [facility] AST 53(H) 10 - 50 Units/L [facility] ALT 61(H) 7 - 55 Units/L [facility] Alk phos 78 40 - 130 Units/L [facility] Bilirubin, total 1.4(H) 0.1 - 1.2 mg/dL [facility] Protein, pl 7.5 6.5 - 8.5 g/dL [facility] Anion gap 8 2 - 15 mmol/L [facility] Blood specimen (specimen) 08/28/2017 2:33 AM CDT 08/28/2017 2:48 AM CDT Narrative [facility] - 08/28/2017 3:14 AM CDT Raimundo Tran MD LAB BLOOD ORDERABLES [facility] al Result [facility] [place] [address] * (ABNORMAL) Ammonia (08/28/2017 2:33 AM CDT) Ammonia 58(H) 5 - 50 mcmol/L [facility] Blood specimen (specimen) 08/28/2017 2:33 AM CDT 08/28/2017 2:46 AM CDT Narrative [facility] - 08/28/2017 3:07 AM CDT Raimundo Tran MD LAB BLOOD ORDERABLES Fin al Result [facility] Department [place] [address] * (ABNORMAL) CBC without differential (08/28/2017 2:33 AM CDT) WBC 3.9 3.8 - 9.9 K/cumm [facility] RBC 4.69 4.30 - 5.80 M/cumm [facility] Hgb 13.0 13.0 - 17.5 g/dL [facility] Hct 38.3(L) 38.9 - 50.3 % [facility] MCV 81.7 81.3 - 96.4 fL [facility] MCH 27.7 27.1 - 33.3 pg [facility] MCHC 33.9 32.3 - 35.7 g/dL [facility] RDW CV 15.6(H) 11.1 - 14.9 % [facility] RDW SD 45.7 35.7 - 48.1 fL [facility] NRBC abs 0.00 0.00 - 0.01 K/cumm [facility] Plt 78(L) 150 - 400 K/cumm [facility] MPV 10.8 9.1 - 12.3 fL [facility] Blood specimen (specimen) 08/28/2017 2:33 AM CDT 08/28/2017 2:49 AM CDT Narrative [facility] - 08/28/2017 2:59 AM CDT Raimundo Tran MD LAB BLOOD ORDERABLES Fin al Result [facility] [place] [address] * (ABNORMAL) Glucose POC (08/28/2017 12:15 AM CDT) Glucose, POC 217(H) 70 - 199 mg/dL [facility] Blood specimen (specimen) 08/28/2017 12:15 AM CDT 08/28/2017 12:15 AM CDT Narrative [facility] - 08/28/2017 12:16 AM CDT Harpal Gonzalez MD POINT OF CARE TEST ORDERABLES Fi nal Result [facility] [place] [address] * DISCHARGE LABORATORY CUMULATIVE REPORT (08/28/2017 12:00 AM CDT) Narrative 08/28/2017 12:00 AM CDT Ordered by an unspecified provider. Historical Provider LAB BLOOD ORDERABLES Anastasiya l Result documented in this encounter Visit Diagnoses Not on filedocumented in this encounter Care Teams Line Puller Relationship Specialty Start Date End Date Kris Soto MD [address] [place] [address] PCP - General 12/08/16 10/26/18 documented as of this encounter
--- OUTSIDE RECORDS SUMMARY | 2024-05-08 06:09 | XMS_ITS | Encounter Summary ---
Author Organization [facility] Healthcare Address [address] [place] [address] Care Team Providers Care General Internist And Physician Leader Name Role Phone No, Physician Primary Care Provider [phone] Encounter Details Date Type Department Care Team (Latest Contact Info) Description 10/21/2016 1:18 PM CDT - 10/21/2016 11:59 PM CDT Hospital Encounter [facility] [phone] Samaria Ellis MD [address] [facility] [address] [place] [address] Discharge Disposition: Discharge to home or self care Social History Tobacco Use Types Packs/Day Years Used Date Smoking Tobacco: Never Assessed Sex and Gender Information Value Date Recorded Sex Assigned at Not on file 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 FINAL REPORT ACC# ??Date Time ??Exam [id number] Oct 21, 2016 14:03:00 [id number] Abd Orgn Duplex EXAMINATION: ?LIVER DOPPLER - [...] RAMIREZ M.D. on Oct 21 2016 ??2:16P [id number] RAMIREZ M.D. FINAL REPORT Attending: ??JENS, ??SAMARIA Requesting: ??JENS, ??SAMARIA Requesting Fax: ?? Attending Fax: ?? Attending ID: ??[id number] Requesting ID: ??[id number] Report To 1 ID: ??[id number] ? Report To 1 Name: ??, ?? Report To 1 FAX: ?? NextGen Order #: ?? Procedure Note Miscellaneous, Not In File - 02/18/2017 KIERAN RAMIREZ M.D. FINAL REPORT ACC# Date Time Exam [id number] Oct 21, 2016 14:03:00 64260 Abd Orgn Duplex EXAMINATION: LIVER DOPPLER - [...] RAMIREZ M.D. on Oct 21 2016 2:16P [id number] RAMIREZ M.D. FINAL REPORT Attending: SAMARIA ELLIS Requesting: SAMARIA ELLIS Requesting Fax: Attending Fax: Attending ID: [id number] Requesting ID: [id number] Report To 1 ID: [id number] Report To 1 Name: , Report To 1 FAX: NextGen Order #: Samaria Ellis MD CV VASCULAR PROCEDURES Edited Result - Final documented in this encounter Visit Diagnoses Not on filedocumented in this encounter Care Teams General Internist And Physician Leader Relationship Specialty Start Date End Date No, Physician PCP - General 09/16/16 11/05/16 documented as of this encounter
--- OUTSIDE RECORDS SUMMARY | 2024-05-08 06:09 | XMS_ITS | Encounter Summary ---
Author Organization [facility] Facility Care Team Providers Care Arcade Game Technician Name Role Phone Unavailable Primary Care Provider Unavailabl e Encounter Details Date Type Department Care Team (Late st Contact Info) Description 12/24/2015 8:17 AM CDT - 12/24/2015 11:59 PM CDT Hospital Encounter [facility] Kathryn Yang MD [address] [address] Cirrhosis of liver (CMS/HCC) Social History Tobacco Use Types Packs/Day Years Used Date Smoking Tobacco: Never Assessed Sex and Gender Information Value Date Recorded Sex Assigned at Not on file 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
--- OUTSIDE RECORDS SUMMARY | 2024-05-08 06:09 | XMS_ITS | Encounter Summary ---
Author Organization [facility] Healthcare Address [address] [place] [address] Care Team Providers Care Solar Installation Technician Name Role Phone Kris Soto MD Primary Care Provide r Reason for Visit * Reason Comments Abdominal Pain Encounter Details Date Type Department Care Team (Late st Contact Info) Description 10/11/2017 12:26 AM CDT - 10/11/2017 3:50 AM CDT Emergency [facility] Emergency Department [address] [place] [address] Cynthia Rodriguez MD [address] [facility] [address] [place], [place] [id number] RUQ pain (Primary Dx); Liver cirrhosis secondary [...] on file 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 Will also [...] ORDERABLES Anastasiya l Result Performing Organization Address [facility] Co de Phone Number [facility] [address] [place] [address] * eGFR (10/11/2017 1:34 AM CDT) eGFR >60 mL/min/1.7 3 m2 [facility] Comment: Interpretive Data Reference Interval Normal ?>/= 90 mL/min/1.73m2 Mildly decreased* ? 60 - 89 mL/min/1.73m2 Mildly to moderately decreased ?45 - 59 mL/min/1.73m2 Moderately to severely decreased ??30 - 44 mL/min/1.73m2 Severely decreased ?15 - 29 mL/min/1.73m2 Kidney Failure ?< 15 ??mL/min/1.73m2 *Relative to young adult level If -Nigerian multiply value by 1.16. Estimated glomerular filtration [...] ORDERABLES Anastasiya l Result Performing Organization Address [facility] Co de Phone Number [facility] [address] [place] [address] * (ABNORMAL) Differential, auto (10/11/2017 1:34 AM [...] CDT Cynthia Rodriguez MD LAB BLOOD ORDERABLES Anastaisya l Result Performing Organization Address City/[facility]/ZIP Co de Phone Number [facility] [address] [facility] [place] [address] * (ABNORMAL) CBC with auto differential (10/11/2017 1:34 AM CDT) Pathologist [facility] WBC 3.7(L) 3.8 - 9.9 K/cumm [facility] RBC 4.75 4.30 - 5.80 M/cumm [facility] Hgb 13.3 13.0 - 17.5 g/dL [facility] Hct 39.5 38.9 - 50.3 % [facility] MCV 83.2 81.3 - 96.4 fL [facility] MCH 28.0 27.1 - 33.3 pg [facility] MCHC 33.7 32.3 - 35.7 g/dL [facility] RDW CV 14.7 11.1 - 14.9 % [facility] RDW SD 44.7 35.7 - 48.1 fL [facility] Plt 74(L) 150 - 400 K/cumm [facility] MPV 10.5 9.1 - 12.3 fL [facility] NRBC abs 0.00 0.00 - 0.01 K/cumm [facility] Blood specimen (specimen) 10/11/2017 1:34 AM CDT 10/11/2017 1:51 AM CDT Narrative [facility] - 10/11/2017 4:02 AM CDT Cynthia Rodriguez MD LAB BLOOD ORDERABLES Edit ed Result - Final Performing Organization Address [facility]/ZIP Co de Phone Number [facility] [address] [place] [address] * Lipase (10/11/2017 1:34 AM CDT) Lipase 36 10 - 99 Units/L [facility] Blood specimen (specimen) 10/11/2017 1:34 AM CDT 10/11/2017 1:51 AM CDT Narrative [facility] - 10/11/2017 2:17 AM CDT us Cynthia Rodriguez MD LAB BLOOD ORDERABLES Anastasiya l Result [facility] [address] [facility] [place] [address] * (ABNORMAL) Comprehensive metabolic panel (10/11/2017 1:34 AM CDT) Pathologist [facility] Sodium 135 135 - 145 mmol/L [facility] Potassium, pl 4.3 3.3 - 4.9 mmol/L [facility] CO2 26 22 - 32 mmol/L [facility] BUN 10 8 - 25 mg/dL [facility] Glucose 395(H) 70 - 199 mg/dL [facility] Comment: Critical result called to and read [...] MD LAB BLOOD ORDERABLES Anastasiya l Result [facility] [address] [facility]. [place] [address] * (ABNORMAL) Urinalysis reflex to microscopic and [...] tendency for uric acid stone formation. Source: [employer]. Last revised 05-14-2017 us Cynthia Rodriguez MD LAB MICROBIOLOGY - GENERA L ORDERABLES Final Result [facility] [address] [facility]. [place] [address] documented in this encounter Visit [...] RN) documented in this encounter Care Teams Solar Installation Technician Relationship Specialty Start Date End Date Kris Soto MD [address] [place] [address] PCP - General 12/08/16 10/26/18 documented as of this encounter
--- OUTSIDE RECORDS SUMMARY | 2024-05-08 06:09 | XMS_ITS | Encounter Summary ---
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
--- OUTSIDE RECORDS SUMMARY | 2024-05-08 06:09 | XMS_ITS | Encounter Summary ---
Author Organization [facility] Healthcare Address [address] [place] [address] Care Team Providers Care Seam Checker Name Role Phone No, Physician Primary Care Provider [phone] Encounter Details Date Type Department Care Team (Late st Contact Info) Description 10/11/2016 6:29 AM CDT - 10/11/2016 1:24 PM CDT Emergency [facility] Emergency Department [address] [place] [phone] Unknown, Notinfile Discharge Disposition: Discharge to home or self care Social History Tobacco Use Types Packs/Day Years Used Date Smoking Tobacco: Never Assessed Sex and Gender Information Value Date Recorded Sex Assigned at Not on file 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 Gender Identity Male 10/29/2020 12:37 PM [...] OF CARE TEST ORDERABLES Final Result [facility] [place] [address] * Glucose POC (10/11/2016 11:15 AM CDT) Pathologist [facility] Glucose, POC 168 70 - 199 mg/dL [facility] Blood specimen (specimen) 10/11/2016 11:15 AM CDT 10/11/2016 11:15 AM CDT us Notinfile Unknown POINT OF CARE TEST ORDERABLES Final Result Performing Organization Address City/[facility]/[place] [address] * (ABNORMAL) Hepatic function panel (10/11/2016 8:50 AM CDT) [facility] AST 65(H) 10 - 50 Units/L [facility] Comment:Hemolyzed; result ma y be falsely elevated. ALT 65(H) 7 - 55 Units/L [facility] Alk phos 84 40 - 130 Units/L [facility] Bilirubin, total 1.4(H) 0.1 - 1.2 mg/dL [facility] Bilirubin, direct 0.2 0.1 - 0.3 mg/dL [facility] Protein, pl 7.1 6.5 - 8.5 g/dL [facility] Albumin 3.7 3.5 - 5.0 g/dL [facility] Blood specimen (specimen) 10/11/2016 8:50 AM CDT 10/11/2016 9:09 AM CDT us Sujatha Gamez MD LAB BLOOD ORDER[place] [address] * (ABNORMAL) Basic metabolic panel (10/11/2016 8:50 AM CDT) [facility] Sodium 140 135 - 145 mmol/L [facility] Potassium, pl 4.4 3.3 - 4.9 mmol/L [facility] Comment:Hemolyzed; (++); pot assium value may be falsely elevated by as much as 0.3 - 0.5 mmol/L. Suggest redraw and reanalysis. Chloride 105 97 - 110 mmol/L [facility] CO2 25 22 - 32 mmol/L [facility] BUN 13 8 - 25 mg/dL [facility] Glucose 280(H) 70 - 199 mg/dL [facility] Creatinine 0.78(L) 0.80 - 1.30 mg/dL [facility] Calcium 9.5 8.5 - 10.3 mg/dL [facility] Anion gap 10 2 - 15 mmol/L [facility] Blood specimen (specimen) 10/11/2016 8:50 AM CDT 10/11/2016 9:09 AM CDT us Sujatha Gamez MD LAB BLOOD ORDERAB LES Final Result [facility] Department [place] [address] * (ABNORMAL) Differential, auto (10/11/2016 8:50 AM CDT) Neutrophil pct 65.2 % [facility] Imm gran pct 0.8 % [facility] Lymphocyte pct 19.7 % [facility] Monocyte pct 10.9 % [facility] Eosinophil pct 2.6 % [facility] Basophil pct 0.8 % [facility] Neutrophil abs 2.52 1.70 - 6.50 K/cumm [facility] Imm gran abs 0.03 0.00 - 0.10 K/cumm [facility] Lymphocyte abs 0.76(L) 0.80 - 3.30 K/cumm [facility] Monocyte abs 0.42 0.20 - 0.80 K/cumm [facility] Eosinophil abs 0.10 0.00 - 0.50 K/cumm [facility] Basophil abs 0.03 0.00 - 0.10 K/cumm [facility] Blood specimen (specimen) 10/11/2016 8:50 AM CDT 10/11/2016 9:09 AM CDT us Sujatha Gamez MD LAB BLOOD ORDERAB LES Final Result [facility] Department [place] [address] * (ABNORMAL) CBC with auto differential (10/11/2016 8:50 AM CDT) [facility] WBC 3.86 3.80 - 9.90 K/cumm [facility] RBC 4.79 4.30 - 5.80 M/cumm [facility] Hgb 13.4 13.0 - 17.5 g/dL [facility] Hct 39.2 38.9 - 50.3 % [facility] MCV 81.8 81.3 - 96.4 fL [facility] MCH 28.0 27.1 - 33.3 pg [facility] MCHC 34.2 32.3 - 35.7 g/dL [facility] RDW CV 14.7 11.1 - 14.9 % [facility] RDW SD 43.4 35.7 - 48.1 fL [facility] Plt 82(L) 150 - 400 K/cumm [facility] MPV 10.9 9.1 - 12.3 fL [facility] NRBC 0.0 0.0 - 0.2 % [facility] NRBC abs 0.00 0.00 - 0.01 K/cumm [facility] Blood specimen (specimen) 10/11/2016 8:50 AM CDT 10/11/2016 9:09 AM CDT us Sujatha Gamez MD LAB BLOOD ORDERAB LES Final Result [facility] Department [place] [address] * POCT BETA-HYDROXYBUTYRATE WHOLE BLOOD (10/11/2016 6:45 AM CDT) Pathologist [facility] Beta Hydroxybutyrate , Whole Blood, Precision X-tra POC 0.1 0.0 - 0.5 mmol/L [facility] Blood specimen (specimen) 10/11/2016 6:45 AM CDT 10/12/2016 9:21 AM CDT us Notinfile Unknown LAB BLOOD ORDERABLES Final Res ult Performing Organization Address City/[facility]/ZIP Co de Phone Number [facility] [employer] [place] [address] * (ABNORMAL) Glucose POC (10/11/2016 6:40 AM CDT) [facility] Glucose, POC 342(H) 70 - 199 mg/dL [facility] Blood specimen (specimen) 10/11/2016 6:40 AM CDT 10/11/2016 6:40 AM CDT us Notinfile Unknown POINT OF CARE TEST ORDERABLES Final Result Performing Organization Address City/[facility] Co de Phone Number [facility] [employer] [place] [address] documented in this encounter Visit Diagnoses Not on filedocumented in this encounter Care Teams Seam Checker Relationship Specialty Start Date End Date No, Physician PCP - General 09/16/16 11/05/16 documented as of this encounter
--- OUTSIDE RECORDS SUMMARY | 2024-05-08 06:09 | XMS_ITS | Encounter Summary ---
Author Organization [facility] Healthcare Address [address] [place] [address] Care Team Providers Care Transformer Assembler Name Role Phone Unavailable Primary Care Provider Unavailabl e Encounter Details Date Type Department Care Team (Latest Contact Info) Description 08/04/2016 11:32 AM CDT - 08/04/2016 11:59 PM CDT Hospital Encounter [facility] OP INTERIM [phone] Kathryn Ellis MD [address] [facility] [address] [place] [address] Discharge Disposition: Discharge to home or self care Social History Tobacco Use Types Packs/Day Years Used Date Smoking Tobacco: Never Assessed Sex and Gender Information Value Date Recorded Sex Assigned at Not on file 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 Current interpretive data was last revised on 2011. Blood specimen (specimen) 08/04/2016 11:52 AM CDT 08/04/2016 12:37 PM CDT Kathryn Ellis MD LAB BLOOD ORDERABLES Fi nal Result Performing Organization Address City/[facility]/ZIP Co de Phone Number [facility] Department [place] [address] * Protime-INR (08/04/2016 11:52 AM CDT) Pathologist [facility] PT 12.6 9.2 - 14.0 sec [facility] INR 1.10 0.81 - 1.22 [facility] Comment: Interpretive Data Inpatient therapeutic ranges* Atrial fibrillation ?2.0-3.0 INR Venous thrombo-embolism ?2.0-3.0 INR Bioprosthetic heart valve ?* Mechanical heart valve, bileaflet or tilting disk,aortic position ? 2.0-3.0 INR All other,or bileaflet or tilting disk, in mitral position ? 2.5-3.5 INR *See the pharmacy resource directory (PHRED) for an updated copy of the Tool Book at [email or web address] Current Interpretive Data was last revised 2011. Blood specimen (specimen) 08/04/2016 11:52 AM CDT 08/04/2016 12:37 PM CDT us Kathryn Ellis MD LAB BLOOD ORDERABLES Fi nal Result Performing Organization Address [facility] Co de Phone Number [facility] Department [place] [address] * [id number], Tumor Marker (08/04/2016 11:44 AM CDT) [facility] alpha Fetoprotein 2.8 0.0 - 8.3 ng/mL [facility] Blood specimen (specimen) 08/04/2016 11:44 AM CDT 08/04/2016 12:54 PM CDT Kathryn Ellis MD LAB BLOOD ORDERABLES Fi nal Result [facility] Department [place] [address] * (ABNORMAL) Comprehensive metabolic panel (08/04/2016 11:44 AM CDT) Pathologist [facility] Sodium 139 135 - 145 mmol/L [facility] Potassium, pl 3.7 3.3 - 4.9 mmol/L [facility] CO2 26 22 - 32 mmol/L [facility] BUN 12 8 - 25 mg/dL [facility] Glucose 175 70 - 199 mg/dL [facility] Creatinine 0.74(L) 0.80 - 1.30 mg/dL [facility] Calcium 9.2 8.5 - 10.3 mg/dL [facility] Chloride 103 97 - 110 mmol/L [facility] Comment:fixed result mapping Albumin 4.0 3.5 - 5.0 g/dL [facility] AST 43 10 - 50 Units/L [facility] ALT 42 7 - 55 Units/L [facility] Alk phos 91 40 - 130 Units/L [facility] Bilirubin, total 1.4(H) 0.1 - 1.2 mg/dL [facility] Protein, pl 7.4 6.5 - 8.5 g/dL [facility] Anion gap 10 2 - 15 mmol/L [facility] Blood specimen (specimen) 08/04/2016 11:44 AM CDT 08/04/2016 12:54 PM CDT Kathryn Ellis MD LAB BLOOD ORDERABLES Fi nal Result [facility] Department [place] [address] * Differential, auto (08/04/2016 11:44 AM CDT) Pathologist [facility] Neutrophil pct 63.6 % [facility] Imm gran pct 0.7 % [facility] Lymphocyte pct 21.1 % [facility] Monocyte pct 11.3 % [facility] Eosinophil pct 2.4 % [facility] Basophil pct 0.9 % [facility] Neutrophil abs 2.93 1.70 - 6.50 K/cumm [facility] Imm gran abs 0.03 0.00 - 0.10 K/cumm [facility] Lymphocyte abs 0.97 0.80 - 3.30 K/cumm [facility] Monocyte abs 0.52 0.20 - 0.80 K/cumm [facility] Eosinophil abs 0.11 0.00 - 0.50 K/cumm [facility] Basophil abs 0.04 0.00 - 0.10 K/cumm [facility] Blood specimen (specimen) 08/04/2016 11:44 AM CDT 08/04/2016 12:55 PM CDT us Kathryn Ellis MD LAB BLOOD ORDERABLES Fi nal Result [facility] Department [place] [address] * (ABNORMAL) CBC with auto differential (08/04/2016 11:44 AM CDT) [facility] WBC 4.60 3.80 - 9.90 K/cumm [facility] RBC 4.98 4.30 - 5.80 M/cumm [facility] Hgb 14.1 13.0 - 17.5 g/dL [facility] Hct 40.2 38.9 - 50.3 % [facility] MCV 80.7(L) 81.3 - 96.4 fL [facility] MCH 28.3 27.1 - 33.3 pg [facility] MCHC 35.1 32.3 - 35.7 g/dL [facility] RDW CV 15.7(H) 11.1 - 14.9 % [facility] RDW SD 44.6 35.7 - 48.1 fL [facility] Plt 96(L) 150 - 400 K/cumm [facility] MPV 10.3 9.1 - 12.3 fL [facility] NRBC 0.0 0.0 - 0.2 % [facility] NRBC abs 0.00 0.00 - 0.01 K/cumm [facility] Blood specimen (specimen) 08/04/2016 11:44 AM CDT 08/04/2016 12:55 PM CDT us Kathryn Ellis MD LAB BLOOD ORDERABLES Fi nal Result [facility] [place] [address] documented in this encounter Visit Diagnoses Not on filedocumented in this encounter
--- OUTSIDE RECORDS SUMMARY | 2024-05-08 06:09 | XMS_ITS | Encounter Summary ---
Author Organization [facility] Facility Care Team Providers Care Wood Experimental Mechanic Name Role Phone Unavailable Primary Care Provider Unavailabl e Encounter Details Date Type Department Care Team (Latest Contact Info) Description 06/01/2016 4:43 AM SILVER LAP MACHINE TENDER - 06/02/2016 4:40 PM [facility] Hospital Encounter [facility] Joel [place] MD [address] [place] [address] Edmond Castaneda MD [address] [place] [address] Hepatic failure, without coma (CMS/HCC); Secondary esophageal varices without bleeding (CMS/HCC); Hematemesis; Type 2 diabetes mellitus with hyperglycemia (CMS/HCC); Portal hypertension (CMS/HCC); Nonalcoholic steatohepatitis (BLAND); Major depressive disorder, single episode; History of colonic polyps; Spinal stenosis; Personal history of nicotine dependence; Patient's unintentional underdosing of medication regimen for other reason; Other diseases of stomach and duodenum; Duodenitis without bleeding; alf current use of insulin (CMS/HCC); Anxiety disorder; [...] on file Legal Sex Male 2:52 PM SILVER LAP MACHINE TENDER Gender Identity Male 10/29/2020 12:37 PM CDT Sexual Orientation Straight 10/29/2020 12 :37 PM CDT documented as of this encounter Last Filed Vital Signs Vital Sign Reading Time Taken Comments Blood Pressure 147/77 06/02/2016 10:16 AM SILVER LAP MACHINE TENDER Pulse 90 06/02/2016 10:16 AM SILVER LAP MACHINE TENDER Temperature - - Respiratory Rate - - Oxygen Saturation 100% 06/02/2016 10:16 AM SILVER LAP MACHINE TENDER Inhaled Oxygen Concentration - - Weight 112.9 kg (248 lb 14 oz) 06/02/2016 5:00 A M SILVER LAP MACHINE TENDER Height 172.7 cm (5' 8 ) 06/01/2016 5:16 AM SILVER LAP MACHINE TENDER Body Mass Index 37.84 06/01/2016 5:16 AM SILVER LAP MACHINE TENDER documented in this encounter Medications at Time [...] GLUCOSE, POC Routine 06/02/2016 4: 02 PM SILVER LAP MACHINE TENDER BLOOD GLUCOSE, POC Routine 06/02/2016 11 :29 AM SILVER LAP MACHINE TENDER BLOOD GLUCOSE, POC Routine 06/02/2016 7: 27 AM SILVER LAP MACHINE TENDER UPPER GASTROINTESTINAL ENDOSCOPY REPORT 06/02/2016 DISCHARGE LABORATORY CUMULATIVE REPORT 06/02/2016 PLASMA PROTHROMBIN TIME (PT) Routine 06/01/2016 8:39 PM SILVER LAP MACHINE TENDER PLASMA COMPREHENSIVE METABOLIC PANEL Routine 06/01/2016 8:39 PM SILVER LAP MACHINE TENDER BLOOD CELL COUNT Routine 06/01/2016 8:39 PM SILVER LAP MACHINE TENDER BLOOD GLUCOSE, POC Routine 06/01/2016 8: 08 PM SILVER LAP MACHINE TENDER BLOOD GLUCOSE, POC Routine 06/01/2016 4: 05 PM SILVER LAP MACHINE TENDER BLOOD GLUCOSE, POC Routine 06/01/2016 11 :22 AM SILVER LAP MACHINE TENDER BLOOD GLUCOSE, POC Routine 06/01/2016 8: 34 AM SILVER LAP MACHINE TENDER VLWU DUPLEX SCAN OF AORTA; INFERIOR VENA CAVA, ILIAC, COMPLETE BILATERAL Routine 06/01/2016 8:14 AM SILVER LAP MACHINE TENDER SERUM MAGNESIUM Routine 06/01/2016 7:03 AM SILVER LAP MACHINE TENDER SERUM IRON PROFILE Routine 06/01/2016 7: 03 AM SILVER LAP MACHINE TENDER SERUM FERRITIN Routine 06/01/2016 7:03 AM SILVER LAP MACHINE TENDER SERUM CYANOCOBALAMIN (VITAMIN B12) Routine 06/01/2016 7:03 AM SILVER LAP MACHINE TENDER PLASMA PROTHROMBIN TIME (PT) Routine 06/01/2016 7:03 AM SILVER LAP MACHINE TENDER PLASMA PHOSPHORUS Routine 06/01/2016 7:0 3 AM SILVER LAP MACHINE TENDER PLASMA PARTIAL THROMBOPLASTIN TIME (PTT) Routine 06/01/2016 7:03 AM SILVER LAP MACHINE TENDER PLASMA HEPATIC FUNCTION PANEL Routine 06/01/2016 7:03 AM SILVER LAP MACHINE TENDER PLASMA BASIC METABOLIC PANEL Routine 06/01/2016 7:03 AM SILVER LAP MACHINE TENDER BLOOD HEMOGLOBIN A1C Routine 06/01/2016 7:03 AM SILVER LAP MACHINE TENDER BLOOD CELL COUNT (CBC) Routine 7 7:03 AM SILVER LAP MACHINE TENDER BLOOD ABO, RH, INDIRECT AB SCREEN Routine 06/01/2016 7:03 AM SILVER LAP MACHINE TENDER BLOOD CELL MORPHOLOGIC EXAM Routine 06/01/2016 7:03 AM SILVER LAP MACHINE TENDER BLOOD GLUCOSE, POC Routine 06/01/2016 5: 28 AM SILVER LAP MACHINE TENDER ELECTROCARDIOGRAPHY (ECG) 06/01/2016 documented in this encounter Results * Blood glucose, POC (06/02/2016 4:02 PM SILVER LAP MACHINE TENDER) Glucose, POC, bld 91 70 - 199 mg/dl CDR HISTORICAL RESULTS Blood specimen (specimen) 06/02/2016 4:02 PM SILVER LAP MACHINE TENDER us Joel Norris MD LAB BLOOD ORDERABLES Fin al Result Performing Organization Address [facility] de Phone Number CDR HISTORICAL RESULTS * Blood glucose, POC (06/02/2016 11:29 AM SILVER LAP MACHINE TENDER) Glucose, POC, bld 175 70 - 199 mg/dl CDR HISTORICAL RESULTS Blood specimen (specimen) 06/02/2016 11:29 AM SILVER LAP MACHINE TENDER Joel Norris MD LAB BLOOD ORDERABLES Fin al Result Performing Organization Address [facility] Co de Phone Number CDR HISTORICAL RESULTS * Blood glucose, POC (06/02/2016 7:27 AM SILVER LAP MACHINE TENDER) Glucose, POC, bld 110 70 - 199 mg/dl CDR HISTORICAL RESULTS Blood specimen (specimen) 06/02/2016 7:27 AM SILVER LAP MACHINE TENDER Result [facility] Joel Norris MD LAB BLOOD ORDERABLES Fin al Result CDR HISTORICAL RESULTS * DISCHARGE LABORATORY CUMULATIVE REPORT (06/02/2016) Narrative 06/02/2016 Ordered by an unspecified provider. Historical Provider LAB BLOOD ORDERABLES Anastasiya l Result * UPPER GASTROINTESTINAL ENDOSCOPY REPORT (06/02/2016) Anatomical Region Laterality Modality Other Narrative 06/02/2016 Ordered by an unspecified provider. Result [facility] Historical Provider GI PROCEDURE ORDERABLES F inal Result * (ABNORMAL) Plasma comprehensive metabolic panel (06/01/2016 8:39 PM SILVER LAP MACHINE TENDER) Sodium 141 135 - 145 mmol/L CDR [...] CDR HISTORICAL RESULTS Plasma 06/01/2016 8:39 PM SILVER LAP MACHINE TENDER Result [facility] Vicente Drew MD LAB BLOOD ORDERABLES Final Result CDR HISTORICAL RESULTS * (ABNORMAL) Plasma prothrombin time (PT) (06/01/2016 8:39 PM SILVER LAP MACHINE TENDER) Prothrombin time (PT) 14.2(H) 9.2 - 14.0 [...] updated copy of the Tool Book at [email or web address] Current Interpretive Data was last revised 2011. Plasma 06/01/2016 8:39 PM SILVER LAP MACHINE TENDER us Vicente Drew MD LAB BLOOD ORDERABLES Final Result CDR HISTORICAL RESULTS * (ABNORMAL) Blood cell count [CBC] express (06/01/2016 8:39 PM SILVER LAP MACHINE TENDER) Pathologist [facility] WBC 5.0 3.8 - 9.9 K/cumm CDR [...] RESULTS Blood specimen (specimen) 06/01/2016 8:39 PM SILVER LAP MACHINE TENDER Vicente Drew MD LAB BLOOD ORDERABLES Final Result Performing Organization Address [facility] de Phone Number CDR HISTORICAL RESULTS * Blood glucose, POC (06/01/2016 8:08 PM SILVER LAP MACHINE TENDER) Glucose, POC, bld 129 70 - 199 mg/dl CDR HISTORICAL RESULTS Blood specimen (specimen) 06/01/2016 8:08 PM SILVER LAP MACHINE TENDER Joel Norris MD LAB BLOOD ORDERABLES Fin al Result Performing Organization Address [facility] de Phone Number CDR HISTORICAL RESULTS * Blood glucose, POC (06/01/2016 4:05 PM SILVER LAP MACHINE TENDER) Glucose, POC, bld 116 70 - 199 mg/dl CDR HISTORICAL RESULTS Blood specimen (specimen) 06/01/2016 4:05 PM SILVER LAP MACHINE TENDER Joel Norris MD LAB BLOOD ORDERABLES Fin al Result Performing Organization Address [facility] de Phone Number CDR HISTORICAL RESULTS * Blood glucose, POC (06/01/2016 11:22 AM SILVER LAP MACHINE TENDER) Glucose, POC, bld 127 70 - 199 mg/dl CDR HISTORICAL RESULTS Blood specimen (specimen) 06/01/2016 11:22 AM SILVER LAP MACHINE TENDER Joel oNrris MD LAB BLOOD ORDERABLES Fin al Result Performing Organization Address City/[facility]/ZIP Co de Phone Number CDR HISTORICAL RESULTS * Blood glucose, POC (06/01/2016 8:34 AM SILVER LAP MACHINE TENDER) Glucose, POC, bld 140 70 - 199 mg/dl CDR HISTORICAL RESULTS Blood specimen (specimen) 06/01/2016 8:34 AM SILVER LAP MACHINE TENDER Joel Norris MD LAB BLOOD ORDERABLES Fin al Result CDR HISTORICAL RESULTS * US Duplex Scan of Aorta; Inferior Vena Cava, Iliac, Complete (06/01/2016 8:14 AM SILVER LAP MACHINE TENDER) Anatomical Region Laterality Modality Vascular Ultrasound 06/01/2016 8:14 AM SILVER LAP MACHINE TENDER Narrative 06/01/2016 10:51 AM SILVER LAP MACHINE TENDER JOEL FRIEDMAN M.D. FINAL REPORT ACC# ??Date Time ??Exam [id number] Jun 01, 2016 08:14:00 [id number] Abd Orgn Duplex EXAMINATION: ?LIVER DOPPLER - [...] FRIEDMAN M.D. on Jun 01 2016 10:51A [id number] Procedure Note Provider, MD Tyler - 09/10/2016 JOEL FRIEDMAN M.D. FINAL REPORT ACC# Date Time Exam [id number] Jun 01, 2016 08:14:00 [id number] Abd Orgn Duplex EXAMINATION: LIVER DOPPLER - [...] FRIEDMAN M.D. on Jun 01 2016 10:51A [id number] us Historical Provider CV VASCULAR PROCEDURES Fi nal Result * Serum cyanocobalamin (vitamin B12) (06/01/2016 7:03 AM SILVER LAP MACHINE TENDER) Cyanocobalamin (Vit B12) 508 210 - 900 pg/ml CDR HISTORICAL RESULTS Serum 06/01/2016 7:03 AM SILVER LAP MACHINE TENDER Joel Norris MD LAB BLOOD ORDERABLES Fin al Result Performing Organization Address [facility] Co de Phone Number CDR HISTORICAL RESULTS * Serum iron profile (06/01/2016 7:03 AM SILVER LAP MACHINE TENDER) Iron 146 50 - 150 mcg/dl CDR HISTORICAL RESULTS UIBC 209 112 - 347 mcg/dl CDR HISTORICAL RESULTS TIBC 355 250 - 400 mcg/dl CDR HISTORICAL RESULTS Transferrin saturation 41 20 - 50 % CDR HISTORICAL RESULTS Serum 06/01/2016 7:03 AM SILVER LAP MACHINE TENDER Joel Norris MD LAB BLOOD ORDERABLES Fin al Result Performing Organization Address [facility] Phone Number CDR HISTORICAL RESULTS * Serum ferritin (06/01/2016 7:03 AM SILVER LAP MACHINE TENDER) Ferritin 32 30 - 400 ng/ml CDR HISTORICAL RESULTS Serum 06/01/2016 7:03 AM SILVER LAP MACHINE TENDER Joel Norris MD LAB BLOOD ORDERABLES Fin al Result Performing Organization Address [facility] Phone Number CDR HISTORICAL RESULTS * (ABNORMAL) Blood hemoglobin A1C (06/01/2016 7:03 AM SILVER LAP MACHINE TENDER) Hgb A1C 7.2(H) 4.0 - 6.0 % CDR HISTORICAL RESULTS Estimated average glucose 160 mg/dl CDR HISTORIC AL RESULTS Comment: The ADA recommends reporting an estimated Average Glucose (eAG) with all Hemoglobin A1c results using the equation derived from a study of 507 normal and diabetic adults. ??Minority populations were underrepresented and children were not included. ??(Diabetes Care 31:7659-2149, 2008). ??The eAG is not equivalent to a fasting glucose. Blood specimen (specimen) 06/01/2016 7:03 AM SILVER LAP MACHINE TENDER Joel Norris MD LAB BLOOD ORDERABLES Fin al Result Performing Organization Address City/[facility] de Phone Number CDR HISTORICAL RESULTS * (ABNORMAL) Plasma hepatic function panel (06/01/2016 7:03 AM SILVER LAP MACHINE TENDER) AST 36 10 - 50 Units/L CDR [...] CDR HISTORICAL RESULTS Plasma 06/01/2016 7:03 AM SILVER LAP MACHINE TENDER Joel Norris MD LAB BLOOD ORDERABLES Fin al Result Performing Organization Address [facility] de Phone Number CDR HISTORICAL RESULTS * Plasma partial thromboplastin time (PTT) (06/01/2016 7:03 AM SILVER LAP MACHINE TENDER) Pathologist [facility] APTT 31.4 25.0 - 37.0 seconds CDR HISTORICAL RESULTS Comment: Interpretive Data Therapeutic heparin range:60.0 - 94.0 sec based on correlation with therapeutic heparin activity range of 0.3 -0.7 Units/mL. Current interpretive data was last revised on 2011. Plasma 06/01/2016 7:03 AM SILVER LAP MACHINE TENDER Joel Norris MD LAB BLOOD ORDERABLES Fin al Result Performing Organization Address [facility] de Phone Number CDR HISTORICAL RESULTS * Plasma basic metabolic panel (06/01/2016 7:03 AM SILVER LAP MACHINE TENDER) Sodium 141 135 - 145 mmol/L CDR [...] CDR HISTORICAL RESULTS Plasma 06/01/2016 7:03 AM SILVER LAP MACHINE TENDER Joel Norris MD LAB BLOOD ORDERABLES Fin al Result Performing Organization Address [facility] de Phone Number CDR HISTORICAL RESULTS * Plasma phosphorus (06/01/2016 7:03 AM SILVER LAP MACHINE TENDER) Phosphorus, pl 3.6 2.3 - 4.5 mg/dl CDR HISTORICAL RESULTS Plasma 06/01/2016 7:03 AM SILVER LAP MACHINE TENDER Joel Norris MD LAB BLOOD ORDERABLES Fin al Result Performing Organization Address [facility] de Phone Number CDR HISTORICAL RESULTS * Plasma prothrombin time (PT) (06/01/2016 7:03 AM SILVER LAP MACHINE TENDER) Prothrombin time (PT) 13.2 9.2 - 14.0 [...] updated copy of the Tool Book at [email or web address] Current Interpretive Data was last revised 2011. Plasma 06/01/2016 7:03 AM SILVER LAP MACHINE TENDER Joel Norris MD LAB BLOOD ORDERABLES Fin al Result Performing Organization Address City/[facility] de Phone Number CDR HISTORICAL RESULTS * Serum magnesium (06/01/2016 7:03 AM SILVER LAP MACHINE TENDER) Magnesium 2.0 1.4 - 2.5 mg/dl CDR HISTORICAL RESULTS Serum 06/01/2016 7:03 AM SILVER LAP MACHINE TENDER Joel Norris MD LAB BLOOD ORDERABLES Fin al Result Performing Organization Address [facility] de Phone Number CDR HISTORICAL RESULTS * (ABNORMAL) Blood cell count (CBC) (06/01/2016 7:03 AM SILVER LAP MACHINE TENDER) WBC 4.3 3.8 - 9.9 K/cumm CDR [...] RESULTS Blood specimen (specimen) 06/01/2016 7:03 AM SILVER LAP MACHINE TENDER Joel Norris MD LAB BLOOD ORDERABLES Fin al Result Performing Organization Address [facility] de Phone Number CDR HISTORICAL RESULTS * Blood ABO, Rh, indirect ab screen (06/01/2016 7:03 AM SILVER LAP MACHINE TENDER) ABO, Rho(D) A Positive CDR HIS TORICAL RESULTS Steve, indirect Negative CDR HISTORICAL RESULTS Blood specimen (specimen) 06/01/2016 7:03 AM SILVER LAP MACHINE TENDER Joel Norris MD LAB BLOOD ORDERABLES Fin al Result Performing Organization Address City/[facility] Co de Phone Number CDR HISTORICAL RESULTS * (ABNORMAL) Blood cell morphologic exam (06/01/2016 7:03 AM SILVER LAP MACHINE TENDER) Neutrophils 67.1 % CDR HIST ORICAL RESULTS [...] RESULTS Blood specimen (specimen) 06/01/2016 7:03 AM SILVER LAP MACHINE TENDER Joel Norris MD LAB BLOOD ORDERABLES Fin al Result Performing Organization Address [facility] de Phone Number CDR HISTORICAL RESULTS * Blood glucose, POC (06/01/2016 5:28 AM SILVER LAP MACHINE TENDER) Glucose, POC, bld 121 70 - 199 mg/dl CDR HISTORICAL RESULTS Blood specimen (specimen) 06/01/2016 5:28 AM SILVER LAP MACHINE TENDER Edmond Castaneda MD LAB BLOOD ORDERABLES Anastasiya l Result Performing Organization Address City/[facility]/ZIP Co de Phone Number CDR HISTORICAL RESULTS [...] of stomach and duodenum Duodenitis without bleeding alf current use of insulin (CMS/HCC) (HCC) Anxiety [...]
--- OUTSIDE RECORDS SUMMARY | 2024-05-08 06:09 | XMS_ITS | Encounter Summary ---
Author Organization [facility] Facility Care Team Providers Care Supervisor Special Education Name Role Phone Unavailable Primary Care Provider Unavailabl e Encounter Details Date Type Department Care Team (Late st Contact Info) Description 11/21/2015 8:30 AM CDT - 11/21/2015 11:59 PM CDT Hospital Encounter [facility] Joel De La Cruz MD [address] [place] [address] Social History Tobacco Use Types Packs/Day Years Used Date Smoking Tobacco: Never Assessed Sex and Gender Information Value Date Recorded Sex Assigned at Not on file Legal Sex Male 2:52 PM [employer] Gender Identity Male 10/29/2020 12:37 PM CDT [...]
--- OUTSIDE RECORDS SUMMARY | 2024-05-08 06:09 | XMS_ITS | Encounter Summary ---
Author Organization [facility] Medical [facility] Address [address] [place] [address] Care Team Providers Care Dry Cell Assembly Supervisor Name Role Phone Braydon Pavon Primary Care Provider [phone] Nikolay Lancaster MD Unavailable [phone] Reason for Visit * Reason Comments New Patient Valve Disorder Encounter Details Date Type Department Care Team (Late st Contact Info) Description 05/14/2020 11:00 AM BEHAVIORAL HEALTH RN Office Visit [facility] [address] [place] [phone] Timothy Peterson, [address] [facility] [address] [place] [address] Chest pain, unspecified type (Primary Dx); Bacterial [...] on file Legal Sex Male 2:52 PM BEHAVIORAL HEALTH RN Gender Identity Male 10/29/2020 12:37 PM CDT Sexual Orientation Straight 10/29/2020 12 :37 PM CDT documented as of this encounter Last Filed Vital Signs Vital Sign Reading Time Taken Comments Blood Pressure 139/77 05/14/2020 10:47 AM BEHAVIORAL HEALTH RN Pulse 102 05/14/2020 10:47 AM BEHAVIORAL HEALTH RN Temperature 37 ??C (98.6 ??F) 05/14/2020 10:47 AM BEHAVIORAL HEALTH RN Respiratory Rate 16 05/14/2020 10:47 AM BEHAVIORAL HEALTH RN Oxygen Saturation - - Inhaled Oxygen Concentration - - Weight 122.9 kg (271 lb) 05/14/2020 10:47 AM BEHAVIORAL HEALTH RN Height 172.7 cm (5' 8 ) 05/14/2020 10:47 AM BEHAVIORAL HEALTH RN Body Mass Index 41.21 05/14/2020 10:47 AM BEHAVIORAL HEALTH RN documented in this encounter Progress Notes * [...] duodenal polyposis, gallstones, DM, was hospitalized in [place] the end of February 2020 for fever [...] & Plan: Unfortunately the patient's records from [place] are not available for my review. We [...] (BMI) of 40.0 to 44.9 in adult ([facility]) Dyspnea on exertion Assessment & Plan: The patient's dyspnea on exertion is likely multifactorial but I will further investigate potentialcardiac etiology with assessment of filling pressures on echocardiography. Due to the patient's diabetes, morbid obesity, advancing age he is at high risk for development of heart failure. Return for Follow-up testing with [facility]. 11:12 AM Timothy Peterson DO Cc:Braydon Pavon PA [facility] RN documented in this encounter Miscellaneous Notes * Assessment & Plan Note - Timothy Peterson DO - 05/14/2020 11:11 AM BEHAVIORAL HEALTH RN Associated Problem(s): Dyspnea on exertion The patient's dyspnea on exertion is likely multifactorial but I will further investigate potentialcardiac etiology with assessment of filling pressures on echocardiography. Due to the patient's diabetes, morbid obesity, advancing age he is at high risk for development of heart failure. [facility] RN * Assessment & Plan Note - Timothy Peterson DO - 05/14/2020 11:07 AM BEHAVIORAL HEALTH RN Associated Problem(s): Bacterial endocarditis Unfortunately the patient's records from [place] are not available for my review. We [...] additional cardiovascular workup/follow- up will be necessary. [facility] RN documented in this encounter Plan of Treatment Not on file documented as of this encounter Visit Diagnoses Diagnosis Chest pain, unspecified type- Primary Bacterial endocarditis, unspecified chronicity Morbid obesity with body mass index (BMI) of 40.0 to 44.9 in adult ([facility]) Dyspnea on exertion Other dyspnea and respiratory [...] 01/20/2024 added in this encounter Care Teams Dry Cell Assembly Supervisor Relationship Specialty Start Date End Date Braydon Pavon PA [address] [place] [address] PCP - General Family Practice 05/09/20 05/19/21 Nikolay Lancaster MD [address] [address] 05/09/20 05/19/21 documented as of this encounter
--- OUTSIDE RECORDS SUMMARY | 2024-05-08 06:09 | XMS_ITS | Encounter Summary ---
Author Organization [facility] Healthcare Address [address] [place] [address] Care Team Providers Care Partition Assembly Machine Operator Name Role Phone Kris Soto MD Primary Care Provide r Encounter Details Date Type Department Care Team (Latest Contact Info) Description 07/06/2017 8:31 AM CAR DEALER - 07/06/2017 11:59 PM [facility] Hospital Encounter [facility] OP INTERIM [phone] Samaria Ellis MD [address] [facility] [address] [place] [address] Discharge Disposition: Discharge to home or self care Social History Tobacco Use Types Packs/Day Years Used Date Smoking Tobacco: Former Sex and Gender Information Value Date Recorded Sex Assigned at Not on file Legal Sex Male 2:52 PM CAR DEALER Gender Identity Male 10/29/2020 12:37 PM CDT [...] ILIAC, COMPLETE BILATERAL Routine 07/06/2017 4:11 PM CAR DEALER US ABDOMEN LIMITED Routine 07/06/2017 4: 11 PM CAR DEALER documented in this encounter Results * US Abdomen Limited (07/06/2017 4:11 PM CAR DEALER) Anatomical Region Laterality Modality Abdomen N/A Ultrasound 07/06/2017 4:11 PM CAR DEALER Narrative 07/06/2017 5:28 PM CAR DEALER TAMIKO WEEKS M.D. FINAL REPORT ACC# ??Date Time ??Exam [id number] Jul 06, 2017 10:11:00 [id number] Abd Orgn Duplex [id number] Jul 06, 2017 10:11:00 [id number] Sono Abd Lmtd EXAMINATION: ?? 1. LIMITED [...] TAMIKO WEEKS M.D. on Jul ??2017 11:26A [id number] WEEKS M.D. FINAL REPORT Attending: ??JENS, ??SAMARIA Requesting: ??JENS, ??SAMARIA Requesting Fax: ?? Attending Fax: ?? Attending ID: ??[id number] Requesting ID: ??[id number] Report To 1 ID: ??[id number] ? Report To 1 Name: ??, ?? Report To 1 FAX: ?? NextGen Order #: ?? Procedure Note Miscellaneous, Not In File - 07/06/2017 TAMIKO WEEKS M.D. FINAL REPORT ACC# Date Time Exam [id number] Jul 06, 2017 10:11:00 02579 [facility] Orgn Duplex [id number] Jul 06, 2017 10:11:00 [id number] Sono Abd Lmtd EXAMINATION: 1. LIMITED ABDOMINAL [...] WEEKS M.D. on Jul 06 2017 11:26A [id number] WEEKS M.D. FINAL REPORT Attending: SAMARIA ELLIS Requesting: SAMARIA ELLIS Requesting Fax: Attending Fax: Attending ID: [id number] Requesting ID: [id number] Report To 1 ID: [id number] Report To 1 Name: , Report To 1 FAX: NextGen Order #: us Samaria Ellis MD IMG US PROCEDURES Final Result * US Duplex Scan of Aorta; Inferior Vena Cava, Iliac, Complete (07/06/2017 4:11 PM CAR DEALER) Anatomical Region Laterality Modality Vascular Ultrasound 07/06/2017 4:11 PM CAR DEALER Narrative 07/06/2017 5:28 PM CAR DEALER TMAIKO WEEKS M.D. FINAL REPORT ACC# ??Date Time ??Exam [id number] Jul 06, 2017 10:11:00 [id number] Abd Orgn Duplex [id number] Jul 06, 2017 10:11:00 [id number] Sono Abd Lmtd EXAMINATION: ?? 1. LIMITED [...] TAMIKO WEEKS M.D. on Jul ??2017 11:26A [id number] WEEKS M.D. FINAL REPORT Attending: ??JENS, ??SAMARIA Requesting: ??JENS, ??SAMARIA Requesting Fax: ?? Attending Fax: ?? Attending ID: ??[id number] Requesting ID: ??[id number] Report To 1 ID: ??[id number] ? Report To 1 Name: ??, ?? Report To 1 FAX: ?? NextGen Order #: ?? Procedure Note Miscellaneous, Not In File - 07/06/2017 TAMIKO WEEKS M.D. FINAL REPORT ACC# Date Time Exam [id number] Jul 06, 2017 10:11:00 [id number] Abd Orgn Duplex [id number] Jul 06, 2017 10:11:00 92774 Sono Abd Lmtd EXAMINATION: 1. LIMITED ABDOMINAL [...] WEEKS M.D. on Jul 06 2017 11:26A [id number] WEEKS M.D. FINAL REPORT Attending: SAMARIA ELLIS Requesting: SAMARIA ELLIS Requesting Fax: Attending Fax: Attending ID: [id number] Requesting ID: [id number] Report To 1 ID: [id number] Report To 1 Name: , Report To 1 FAX: NextGen Order #: Samaria Ellis MD CV VASCULAR PROCEDURES Final Result documented in this encounter Visit Diagnoses Not on filedocumented in this encounter Care Teams Partition Assembly Machine Operator Relationship Specialty Start Date End Date Kris Soto MD [address] [place] [address] PCP - General 12/08/16 10/26/18 documented as of this encounter
--- OUTSIDE RECORDS SUMMARY | 2024-05-08 06:09 | XMS_ITS | Encounter Summary ---
Author Organization [facility] Healthcare Address [address] [place] [address] Care Team Providers Care Capacity Manager Name Role Phone Kris Soto MD Primary Care Provide r Encounter Details Date Type Department Care Team (Late st Contact Info) Description 11/25/2016 3:21 PM CDT - 11/25/2016 11:59 PM CDT Hospital Encounter [facility] OP INTERIM Kris Soto MD [address] [place] [address] Discharge Disposition: Discharge to home or self care Social History Tobacco Use Types Packs/Day Years Used Date Smoking Tobacco: Never Assessed Sex and Gender Information Value Date Recorded Sex Assigned at Not on file Legal Sex Male 2:52 PM DRY PRESS OPERATOR HELPER Gender Identity Male 10/29/2020 12:37 PM [...] on filedocumented in this encounter Care Teams Capacity Manager Relationship Specialty Start Date End Date Kris Soto MD [address] [place] [address] PCP - General 11/25/16 11/26/16 documented as of this encounter
--- OUTSIDE RECORDS SUMMARY | 2024-05-08 06:09 | XMS_ITS | Encounter Summary ---
Author Organization [facility] Address [address] [place] [address] Phone Care Team Providers Care System Programmer Name Role Phone Kris Soto MD Primary Care Provide r Encounter Details Date Type Department Care Team (Late st Contact Info) Description 10/12/2017 Documentation [facility] Gastroenterology [facility] 8th [place] [address] [place] [address] Christiana Carrillo RN Social History Tobacco Use Types Packs/Day Years Used Date Smoking Tobacco: Former Smokeless Tobacco: Never Alcohol Use Standard Drinks/Week Comments No 0 (1 standard drink = 0.6 oz pur e alcohol) Sex and Gender Information Value Date Recorded Sex Assigned at Not on file Legal Sex 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 We are requesting: EMERGENCY ROOM INFORMATION FROM MOST RECENT VISIT: MD SUMMARY, LABS, ABDOMINAL IMAGING, ANY DIAGNOSTIC TESTING Medical Records are needed by: HEIKE Please fax to [phone]. According to HIPAA regulation, a signed patient request for release of information is NOT required WHEN the request is for TREATMENT or BILLING of a patient. Any and all assistance in returning the requested information in a timely fashion would be appreciated and would assist in expediting patientcare. If the it consulting manager of your medical records department has any questions, please contact Lynda Ballard at for clarification or the HIPAA.ORG web site (HIPAA Protecting Privacy of Patient Health Information Act 08/16/04 Div of Procedural Enforcement Codes). documented in this encounter Plan of Treatment Not on file documented as of this encounter Visit Diagnoses Not on filedocumented in this encounter Care Teams System Programmer Relationship Specialty Start Date End Date Kris Soto MD [address] [place] [address] PCP - General 12/08/16 10/26/18 documented as of this encounter
--- OUTSIDE RECORDS SUMMARY | 2024-05-08 06:09 | XMS_ITS | Encounter Summary ---
Author Organization [facility] Healthcare Address [address] [place] [address] Care Team Providers Care Phlebotomist Supervisor/Instructor Name Role Phone Kris Soto MD Primary Care Provide r Encounter Details Date Type Department Care Team (Latest Contact Info) Description 07/06/2017 11:59 AM AGRICULTURAL LENDER - 07/06/2017 11:59 PM [facility] Hospital Encounter [facility] OP INTERIM [phone] Kathryn Ellis MD [address] [facility] [address] [place] [address] Discharge Disposition: Discharge to home or self care Social History Tobacco Use Types Packs/Day Years Used Date Smoking Tobacco: Former Sex and Gender Information Value Date Recorded Sex Assigned at Not on file Legal Sex Male 2:52 PM AGRICULTURAL LENDER Gender Identity Male 10/29/2020 12:37 PM CDT [...] Routine Gen Lab 07/06/2017 12: 20 PM AGRICULTURAL LENDER CBC WITH AUTO DIFFERENTIAL Routine Gen Lab 07/06/2017 12:20 PM AGRICULTURAL LENDER [id number], TUMOR MARKER Routine Gen Lab 07/06/2017 12:20 PM AGRICULTURAL LENDER VITAMIN D 25 HYDROXY Routine Gen Lab 07/06/2017 12:20 PM AGRICULTURAL LENDER PROTIME-INR Routine Gen Lab 07/06/2017 12:20 PM AGRICULTURAL LENDER COMPREHENSIVE METABOLIC PANEL Routine Gen Lab 07/06/2017 12:20 PM AGRICULTURAL LENDER DISCHARGE LABORATORY CUMULATIVE REPORT 07/06/2017 12:00 AM AGRICULTURAL LENDER documented in this encounter Results * (ABNORMAL) Vitamin D 25 hydroxy (07/06/2017 12:20 PM AGRICULTURAL LENDER) Vitamin D 25-OH 12(L) 30 - 80 ng/mL MOHINDER MICHEL Blood specimen (specimen) 07/06/2017 12:20 PM AGRICULTURAL LENDER 07/06/2017 1:20 PM AGRICULTURAL LENDER Narrative [facility] - 07/06/2017 2:13 PM AGRICULTURAL LENDER Kathryn Ellis MD LAB BLOOD ORDERABLES Fi nal Result Performing Organization Address City/[facility] Co de Phone Number [facility] [place] [address] * [id number], Tumor Marker (07/06/2017 12:20 PM AGRICULTURAL LENDER) [facility] alpha Fetoprotein 3.8 0.0 - 8.3 ng/mL [facility] Blood specimen (specimen) 07/06/2017 12:20 PM AGRICULTURAL LENDER 07/06/2017 1:20 PM AGRICULTURAL LENDER Narrative [facility] - 07/06/2017 2:02 PM AGRICULTURAL LENDER Kathryn Ellis MD LAB BLOOD ORDERABLES Fi nal Result Performing Organization Address [facility] Co de Phone Number [facility] [place] [address] * (ABNORMAL) Comprehensive metabolic panel (07/06/2017 12:20 PM AGRICULTURAL LENDER) [facility] Sodium 141 135 - 145 mmol/L [facility] Potassium, pl 4.3 3.3 - 4.9 mmol/L [facility] CO2 28 22 - 32 mmol/L [facility] BUN 13 8 - 25 mg/dL [facility] Glucose 223(H) 70 - 199 mg/dL [facility] Comment: Interpretive Data Fasting glucose [...] 2017. Creatinine 0.64(L) 0.80 - 1.30 mg/dL [facility] Calcium 9.5 8.5 - 10.3 mg/dL [facility] Chloride 103 97 - 110 mmol/L [facility] Albumin 4.1 3.5 - 5.0 g/dL [facility] AST 108(H) 10 - 50 Units/L [facility] ALT 91(H) 7 - 55 Units/L [facility] Alk phos 74 40 - 130 Units/L [facility] Bilirubin, total 1.5(H) 0.1 - 1.2 mg/dL [facility] Protein, pl 7.5 6.5 - 8.5 g/dL [facility] Anion gap 10 2 - 15 mmol/L [facility] Blood specimen (specimen) 07/06/2017 12:20 PM AGRICULTURAL LENDER 07/06/2017 1:20 PM AGRICULTURAL LENDER Narrative [facility] - 07/06/2017 1:55 PM AGRICULTURAL LENDER us Kathryn Ellis MD LAB BLOOD ORDERABLES nal Result [facility] Department [place] [address] * (ABNORMAL) Differential, auto (07/06/2017 12:20 PM AGRICULTURAL LENDER) Pathologist [facility] Neutrophil pct 73.7 % [facility] Imm gran pct 0.6 % [facility] Lymphocyte pct 13.7 % [facility] Monocyte pct 8.7 % [facility] Eosinophil pct 2.3 % [facility] Basophil pct 1.0 % [facility] Neutrophil abs 3.83 1.70 - 6.50 K/cumm [facility] Imm gran abs 0.03 0.00 - 0.10 K/cumm [facility] Lymphocyte abs 0.71(L) 0.80 - 3.30 K/cumm [facility] Monocyte abs 0.45 0.20 - 0.80 K/cumm [facility] Eosinophil abs 0.12 0.00 - 0.50 K/cumm [facility] Basophil abs 0.05 0.00 - 0.10 K/cumm [facility] Blood specimen (specimen) 07/06/2017 12:20 PM AGRICULTURAL LENDER 07/06/2017 1:20 PM AGRICULTURAL LENDER Narrative [facility] - 07/06/2017 1:37 PM AGRICULTURAL LENDER us Kathryn Ellis MD LAB BLOOD ORDERABLES Fi nal Result Performing Organization Address City/[facility]/ZIP Co de Phone Number [facility] Department [place] [address] * (ABNORMAL) CBC with auto differential (07/06/2017 12:20 PM AGRICULTURAL LENDER) WBC 5.2 3.8 - 9.9 K/cumm [facility] RBC 4.89 4.30 - 5.80 M/cumm [facility] Hgb 13.7 13.0 - 17.5 g/dL [facility] Hct 39.8 38.9 - 50.3 % [facility] MCV 81.4 81.3 - 96.4 fL [facility] MCH 28.0 27.1 - 33.3 pg [facility] MCHC 34.4 32.3 - 35.7 g/dL [facility] RDW CV 15.4(H) 11.1 - 14.9 % [facility] RDW SD 45.1 35.7 - 48.1 fL [facility] Plt 92(L) 150 - 400 K/cumm [facility] MPV 10.8 9.1 - 12.3 fL [facility] NRBC abs 0.00 0.00 - 0.01 K/cumm [facility] Blood specimen (specimen) 07/06/2017 12:20 PM AGRICULTURAL LENDER 07/06/2017 1:20 PM AGRICULTURAL LENDER Narrative [facility] - 07/06/2017 1:37 PM AGRICULTURAL LENDER us Kathryn Ellis MD LAB BLOOD ORDERABLES Fi nal Result Performing Organization Address City/[facility]/ZIP Co de Phone Number [facility] Department [place] [address] * Protime-INR (07/06/2017 12:20 PM AGRICULTURAL LENDER) PT 13.0 8.5 - 13.0 sec [facility] INR 1.21 0.80 - 1.21 [facility] Comment: Interpretive Data Inpatient therapeutic ranges* Atrial fibrillation ?2.0-3.0 INR Venous thrombo-embolism ?2.0-3.0 INR Bioprosthetic heart valve ?* Mechanical heart valve, bileaflet or tilting disk,aortic position ? 2.0-3.0 INR All other,or bileaflet or tilting disk, in mitral position ? 2.5-3.5 INR *See the pharmacy resource directory (PHRED) for an updated copy of the Tool Book at [email or web address] Current Interpretive Data was last revised 2011. Blood specimen (specimen) 07/06/2017 12:20 PM AGRICULTURAL LENDER 07/06/2017 1:20 PM AGRICULTURAL LENDER Narrative [facility] - 07/06/2017 1:36 PM AGRICULTURAL LENDER us Kathryn Ellis MD LAB BLOOD ORDERABLES Fi nal Result [facility] [place] [address] * DISCHARGE LABORATORY CUMULATIVE REPORT (07/06/2017 12:00 AM AGRICULTURAL LENDER) Narrative 07/06/2017 12:00 AM AGRICULTURAL LENDER Ordered by an unspecified provider. us Historical Provider LAB BLOOD ORDERABLES Anastasiya l Result documented in this encounter Visit Diagnoses Not on filedocumented in this encounter Care Teams Phlebotomist Supervisor/Instructor Relationship Specialty Start Date End Date Kris Soto MD [address] [id number] PCP - General 12/08/16 10/26/18 documented as of this encounter
--- OUTSIDE RECORDS SUMMARY | 2024-05-08 06:09 | XMS_ITS | Encounter Summary ---
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
--- OUTSIDE RECORDS SUMMARY | 2024-05-08 06:09 | XMS_ITS | Encounter Summary ---
Author Organization [facility] Address [address] [facility] [address] [place] [address] Phone Care Team Providers Care Loss Prevention Auditor Name Role Phone Kris Soto MD Primary Care Provide r Encounter Details Date Type Department Care Team (Latest Contact Info) Description 02/22/2018 8:30 AM CDT Office Visit [facility] Gastroenterology [address] [facility] 2nd Floor [address] [place] [address] Kathryn Ellis MD [address] [facility] [address] [place] [address] S/P TIPS (transjugular intrahepatic portosystemic [...] on file Legal Sex Male 2:52 PM TEST AND RESEARCH REACTOR OPERATOR Gender Identity Male 10/29/2020 12:37 PM [...] Please feel free to contact me at [phone] for any questions or concerns regarding my assessment and plan. Kathryn Ellis M.D. Paper Sample Clerk Hepatology Program documented in this encounter Plan [...] of liver (CMS/HCC) Expected: 02/22/2018, Expires: 02/22/2019 [id number], Tumor Marker Lab Routine S/P TIPS (transjugular [...] 05/09/2020 added in this encounter Care Teams Loss Prevention Auditor Relationship Specialty Start Date End Date Kris Soto MD [address] [place] [address] PCP - General 12/08/16 10/26/18 documented as of this encounter
--- OUTSIDE RECORDS SUMMARY | 2024-05-08 06:09 | XMS_ITS | Encounter Summary ---
Author Organization [facility] Address [address] [place] [address] Phone Care Team Providers Care Reverser Name Role Phone Kris Soto MD Primary Care Provide r Encounter Details Date Type Department Care Team (Late st Contact Info) Description 10/11/2017 Documentation [facility] Gastroenterology [facility] 8th [place] [address] [place] [address] James Carrillo, RN Social History Tobacco Use Types Packs/Day Years Used Date Smoking Tobacco: Former Smokeless Tobacco: Never Alcohol Use Standard Drinks/Week Comments No 0 (1 standard drink = 0.6 oz pur e alcohol) Sex and Gender Information Value Date Recorded Sex Assigned at Not on file Legal Sex Male 2:52 PM RUNNING SPECIALIST Gender Identity Male 10/29/2020 12:37 PM [...] in the ambulance on the way to [facility] for one of his ER visits. Camilo is under contract to a pain specialist in [place], who is out of town for 2 [...] trying to obtain. james Haney R.N., B.S.N. [facility] Hepatology Program [address] [place] [address] [place] [address] Kathryn Ellis and Dr. Elian Espinoza #[phone] [email or web address] The materials in this e-mail are private [...] immediately notify the sender via telephone at [phone] to arrange for return of the forwarded documents to us. From: Jose Miguel Sent: Tuesday, October 10, 2017 11:02 PM To: Kathryn Ellis <[email or web address]> Cc: James Carrillo <[email or web address]> Subject: patient KENNEDY Peralta, A patient of your's, Camilo Curry 70, called stating he had RUQ abdominal pain that was 10/10. He was previously seen at an OSH and his pain was thought to be due to gallstones. It's unclear whatworkup was done there but he was discharged to follow up at [facility]. His pain was relatively controlled until tonight. When he called me he was on his way to [facility]. Let me know if you'd like anything else done. Thank you, Jose Miguel M.D. Fellow, Division of Gastroenterology [facility] in [place] documented in this encounter Plan of Treatment Not on file documented as of this encounter Visit Diagnoses Not on filedocumented in this encounter Care Teams Reverser Relationship Specialty Start Date End Date Kris Soto MD [address] [id number] PCP - General 12/08/16 10/26/18 documented as of this encounter
--- OUTSIDE RECORDS SUMMARY | 2024-05-08 06:09 | XMS_ITS | Encounter Summary ---
Author Organization [facility] Address [address] [place] [address] Phone Care Team Providers Care Gastroenterology Physician Name Role Phone Kris Soto MD Primary Care Provide r Encounter Details Date Type Department Care Team (Late st Contact Info) Description 02/04/2018 Telephone [facility] Gastroenterology [address] [place] [address] 8th [place] [address] [place] [address] Christiana Carrillo RN Social History Tobacco Use Types Packs/Day Years Used Date Smoking Tobacco: Former Smokeless Tobacco: Never Alcohol Use Standard Drinks/Week Comments No 0 (1 standard drink = 0.6 oz pur e alcohol) Sex and Gender Information Value Date Recorded Sex Assigned at Not on file Legal Sex Male 2:52 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
--- OUTSIDE RECORDS SUMMARY | 2024-05-08 06:09 | XMS_ITS | Encounter Summary ---
Author Organization [facility] Facility Care Team Providers Care Fruit And Vegetable Packer Name Role Phone Unavailable Primary Care Provider Unavailabl e Encounter Details Date Type Department Care Team (Late st Contact Info) Description 06/03/2016 8:00 AM KENNEL STAFF MEMBER - 06/03/2016 11:59 PM KENNEL STAFF MEMBER Hospital Encounter [facility] Gregg Haines MD [address] [facility] [address] [place] [id number] Social History Tobacco Use Types Packs/Day Years Used Date Smoking Tobacco: Never Assessed Sex and Gender Information Value Date Recorded Sex Assigned at Not on file Legal Sex Male 2:52 PM KENNEL STAFF MEMBER Gender Identity Male 10/29/2020 12:37 PM CDT [...]
--- OUTSIDE RECORDS SUMMARY | 2024-05-08 06:09 | XMS_ITS | Encounter Summary ---
Author Organization [facility] Healthcare Address [address] [place] [address] Care Team Providers Care Vacuum Evaporation Operator Name Role Phone Nikolay Lancaster MD Primary Care Provider [phone] Kris Soto MD Unavailable Encounter Details Date Type Department Care Team (Late st Contact Info) Description 10/27/2018 8:02 PM CDT - 10/28/2018 12:52 AM CDT Hospital Encounter [address] [address] Unknown, Ector Grijalva MD [address] [place] [id number] Discharge Disposition: Discharge to home or self care Social History Tobacco Use Types Packs/Day Years Used Date Smoking Tobacco: Never Assessed Sex and Gender Information Value Date Recorded Sex Assigned at Not on file Legal Sex Male 2:52 PM [facility] [employer] Gender Identity Male 10/29/2020 12:37 PM CDT [...] 10:36 PM CDT) Blood Type Confirm AP [facility] 10/27/2018 10:3 6 PM CDT 10/27/2018 10:37 PM CDT Narrative Resulting Agency Comment ER us Ector Bermudez MD LAB BLOOD ORDERABLES Final Result Performing Organization Address City/[facility]/ZIP Co de Phone Number [address] [phone] * Antibody screen (10/27/2018 10:17 PM CDT) Antibody Screen NEGATIVE [facility] 10/27/2018 10:1 7 PM CDT 10/27/2018 10:28 PM CDT Narrative Resulting Agency Comment ER us Ector Bermudez MD LAB BLOOD BANK TEST O RDERABLES Final Result Performing Organization Address City/[facility]/[place] [address], [place] [phone] * Type and screen (10/27/2018 10:17 PM CDT) Blood Type AP [facility] 10/27/2018 10:1 7 PM CDT 10/27/2018 10:28 PM CDT Narrative [facility] - 10/27/2018 11:10 PM CDT N Resulting Agency Comment ER us Ector Bermudez MD LAB BLOOD BANK TEST O RDERABLES Final Result [address] [phone] * Ammonia (10/27/2018 10:17 PM CDT) AMMONIA 73 27 - 102 ug/dL [facility] 10/27/2018 10:1 7 PM CDT 10/27/2018 10:27 PM CDT Narrative Resulting Agency Comment ER Ector Bermudez MD LAB BLOOD ORDERABLES Final Result Performing Organization Address City/[facility]/ZIP Co de Phone Number [address] [phone] * Ethanol (10/27/2018 10:17 PM CDT) Ethyl Alcohol <10 mg/dL [facility] Comment: % = mg/dL x .001 10/27/2018 10:1 7 PM CDT 10/27/2018 10:28 PM CDT Narrative Resulting Agency Comment ER Ector Bermudez MD LAB BLOOD ORDERABLES Final Result Performing Organization Address City/[facility]/ZIP Co de Phone Number [address] [phone] * (ABNORMAL) Lipase (10/27/2018 8:57 PM CDT) Lipase 76(H) 13 - 60 U/L [facility] 10/27/2018 8:57 PM CDT 10/27/2018 9:01 PM CDT Narrative Resulting Agency Comment ER Sukhwinder LYON LAB BLOOD ORDERABLES Final Result Performing Organization Address City/[facility]/ZIP Co de Phone Number [address] [phone] * (ABNORMAL) Comprehensive metabolic panel (10/27/2018 8:57 PM CDT) Sodium 137 135 - 145 mmol/L [facility] Potassium 3.8 3.3 - 5.1 mmol/L [facility] Chloride 99 96 - 108 mmol/L [facility] Carbon Dioxide 28 22 - 32 mmol/L [facility] Anion Gap 10 7 - 16 [facility] Glucose 296(H) 70 - 100 mg/dL [facility] BUN 11 8 - 25 mg/dL [facility] Creatinine 0.7 0.5 - 1.3 mg/dL [facility] Comment: NOTE: Estimated GFR (Cockroft-Gault) will NOT be calculated unless patient Height and Weight were entered. Also, Kidney Disease Stage (GFR) and Estimated GFR (Cockroft-Gault) will NOT be calculated if Creatinine result is <0.2. Kidney Disease Stage >90 mL/MIN [facility] Comment: NOTE; ??The GFR is an estimated [...] on dialysis Est GFR (Cockcroft-G) 164 ml/MIN [facility] Comment: Estimated GFR(Cockroft-Gault)is used to calculate patient medication dosage Calcium 10.0 8.6 - 10.3 mg/dL [facility] Total Protein 7.1 6.4 - 8.3 g/dL [facility] Albumin 3.8 3.5 - 5.0 g/dL [facility] Globulin 3.3 2.3 - 3.5 gm/dL [facility] Albumin/Globulin Ratio 1.2 1.1 - 1.8 [facility] Total Bilirubin 0.9 0.0 - 1.2 mg/dL [facility] AST 57(H) 0 - 40 U/L [facility] ALT 59(H) 0 - 41 U/L [facility] Alkaline Phosphatase 72 40 - 129 U/L [facility] 10/27/2018 8:57 PM CDT 10/27/2018 9:01 PM CDT Narrative Resulting Agency Comment ER Sukhwinder LYON LAB BLOOD ORDERABLES Final Result [address] [phone] * aPTT (10/27/2018 8:57 PM CDT) APTT 29 26 - 33 SECONDS [facility] 10/27/2018 8:57 PM CDT 10/27/2018 9:01 PM CDT Narrative Resulting Agency Comment ER Sukhwinder LYON LAB BLOOD ORDERABLES Final Result [address] [phone] * (ABNORMAL) Protime-INR (10/27/2018 8:57 PM CDT) PT 14.8(H) 11.8 - 14.5 SECONDS [facility] INR 1.15 [facility] Comment: Recommended Therapeutic range for Oral Anticoagulant [...] Sukhwinder LYON LAB BLOOD ORDERABLES Final Result [facility] [address] [place] [address], [place] [phone] * (ABNORMAL) CBC with auto differential (10/27/2018 8:57 PM CDT) WBC 3.7(L) 3.8 - 9.9 X10 3/ul [facility] RBC 5.12 4.30 - 5.80 x10 6/ul [facility] Hemoglobin 12.9(L) 13.0 - 17.5 g/dL [facility] Hct 41.1 38.9 - 50.3 % [facility] MCV 80.3(L) 81.3 - 96.4 fl [facility] MCH 25.2(L) 27.1 - 33.3 pg [facility] MCHC 31.4(L) 32.3 - 35.7 g/dl [facility] RDW 14.9 11.1 - 14.9 % [facility] Plt Count 75(L) 150 - 400 x10 3/ul [facility] MPV 11.0 9.1 - 12.3 fl [facility] Neut % 71.7 % [facility] Immature Gran % 0.3 % [facility] Lymph % 13.6 % [facility] Winn % 11.7 % [facility] Eos % 2.2 % [facility] AUTO BASO % 0.5 % [facility] NEUTROPHIL ABS # 2.7 1.7 - 6.5 x10 3/ul [facility] Immature Gran # 0.0 0.0 - 0.1 x10 3/ul [facility] Absolute Lymphs (auto) 0.5(L) 0.8 - 3.3 x10 3/ul [facility] Absolute Monos (auto) 0.4 0.2 - 0.8 x10 3/ul [facility] Absolute Eos (auto) 0.1 0.0 - 0.5 x10 3/ul [facility] BASOPHIL ABS # 0.0 0.0 - 0.1 x10 3/ul [facility] Nucleat RBC Rel Count 0.0 #/100WBC [facility] NRBC abs 0.00 0.00 - 0.01 x10 3/ul [facility] Absolute Neutrophils 2,700 200 - 8,000 /ul [facility] 10/27/2018 8:57 PM CDT 10/27/2018 9:01 PM CDT Narrative Resulting Agency Comment ER Sukhwinder LYON LAB BLOOD ORDERABLES Final Result [facility] [address] [phone] * CT Abdomen Pelvis WO Contrast (10/27/2018 12:00 AM CDT) Anatomical Region Laterality Modality Body N/A Computed Tomogra phy 10/28/2018 12:1 3 AM CDT Narrative 10/28/2018 12:23 AM CDT Patient Name: CAMILO CURRY ?Ordering Dr: Ector Bermudez MD ?? D.O.B: 1970 ? Exam Date: 10/27/18 ?? 0000 ?? Age: 48 ?Sex: Male ? MR#: [id number] ?? Loc: ? RADIOLOGY REPORT ?? Order #[id number] ?? CT Scan ? CT Abd/Pelvis WO [...] 12:23 AM - Electronically signed by Arian Presslye M.D. ?? Arian Pressley M.D. ? [place] ?? D: ??10/28/2018 12:23 AM ?? T: ? Report ID: [id number] ?? Reading Location: ??[id number] ? REPORT ELECTRONICALLY SIGNED IN OTHER VENDOR SYSTEM ?? Resulting Agency Comment E Procedure Note Arian Pressley MD - 10/28/2018 Patient Name: Varsha CURRY Dr: Ector Bermudez MDOMendezB: 1970 Exam Date: 10/27/18 0000 Age: 48 Sex: Male MR#: [id number] Loc: RADIOLOGY REPORT Order #[id number] CT Scan CT Abd/Pelvis WO IV Contrast [...] Arian Pressley M.D. AR T: Report ID: [id number] Reading Location: [place] [address] REPORT ELECTRONICALLY SIGNED IN OTHER VENDOR SYSTEM Ector Bermudez MD IMG CT PROCEDURES Fin al Result documented in this encounter Visit Diagnoses Not on filedocumented in this encounter Care Teams Vacuum Evaporation Operator Relationship Specialty Start Date End Date Nikolay Lancaster MD [address] [place] [address] [phone] PCP - General 10/27/18 05/08/20 Kris Soto MD [address] [place] [address] 10/27/18 05/08/20 documented as of this encounter
--- OUTSIDE RECORDS SUMMARY | 2024-05-08 06:09 | XMS_ITS | Encounter Summary ---
Author Organization [facility] Facility Care Team Providers Care Marine Underwriter Name Role Phone Unavailable Primary Care Provider Unavailabl e Encounter Details Date Type Department Care Team (Late st Contact Info) Description 12/24/2015 9:00 AM CDT - 12/24/2015 11:59 PM CDT [facility] Kathryn Yang MD [address] [address] Social History Tobacco Use Types Packs/Day Years Used Date Smoking Tobacco: Never Assessed Sex and Gender Information Value Date Recorded Sex Assigned at Not on file Legal Sex Male 2:52 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
--- OUTSIDE RECORDS SUMMARY | 2024-05-08 06:09 | XMS_ITS | Encounter Summary ---
Author Organization [facility] Healthcare Address [address] [place] [address] Care Team Providers Care Transcripter Name Role Phone Kris Soto MD Primary Care Provide r Encounter Details Date Type Department Care Team (Latest Contact Info) Description 02/02/2018 10:16 AM CDT - 02/03/2018 2:00 AM CDT Hospital Encounter [facility] [address] [place] [address] Sandy Kraus MD [address] [place] [address] Jamal Patino MD [address] [place] [address] Discharge Disposition: Left Against Medical Advice Social History Tobacco Use Types Packs/Day Years Used Date Smoking Tobacco: Former Smokeless Tobacco: Never Alcohol Use Standard Drinks/Week Comments No 0 (1 standard drink = 0.6 oz pur e alcohol) Sex and Gender Information Value Date Recorded Sex Assigned at Not on file Legal Sex Male 2:52 PM PATIENT APPOINTMENT COORDINATOR Gender Identity Male 10/29/2020 12:37 PM [...] Care Physician at Discharge: Kris Soto MD [phone] Admission Date: 02/02/2018 Discharge Date: 02/03/2018 Admission Location: [facility] Primary Discharge Diagnosis: Acute gastroenteritis Secondary [...] Pt was transferred from [facility] ED to [facility] for higher level of care and [...] Time Provider Department Center 02/15/2018 9:00 AM [facility] [address] [place] [address] 02/15/2018 10:30 AM Kathryn Ellis MD GI [facility] [address] [facility] Contact Information for Follow-ups Kris Soto MD Specialty: Family Medicine, Internal Medicine, Pediatrics Relationship: PCP - General [address] [address] Next Steps: Follow up documented in this [...] and assistance at discharge. Insurance verified as: [facility] [place], [place] Medicaid Admission Source: Home 02/02/18 1000 Discharge [...] no other findings Pt was transferred to [facility] for higher level of care and [...] SCD Code Status: Full Code Contact: Lupe [phone] Dispo: home Juana Vigil MD Cosigned by [...] Endocrine Diabetes Inpatient Consult 02/02/2018 Camilo Curry [id number] Kris Soto MD CONSULTING PROVIDER: Nirmal Vivar [...] and severe diarrhea. He visited local ED ([facility]) and was given pain medications for concern for gastroenteritis. He was discharged home but continued to experience watery diarrhea with occasional black chunks and additional vomiting with occasional streaks of red blood. He presented to [facility] for persistent symptoms and was given IVF and monitored; during this time, his diarrhea persisted and reports>20 episodes of diarrhea since onset. He was transferred to [facility] for SBP rule out and higher level of care. He endorses dizziness and cold sweats. He denies fever, headache, chest pain. Regarding his DM2: He was diagnosed in 2010 and was started on insulin about 3 years ago. He previously followed with Dr. Power in [place], [place]. But is in the process of getting a new lunch cook due to insurance changes. He has never [...] ??? Diabetes (CMS/HCC) ??? Gallbladder calculus ??? LBAND (nonalcoholic steatohepatitis) Past Surgical History: Procedure Laterality [...] resume home regimen and follow-up with home lunch cook High risk medication use Assessment & Plan [...] Dr Lizama, Dr Brock and Manuel the [facility] [facility] notified. Pt's IV was D/C and pt vital signs are stable. Pt left AMA at 0200 on 08/04/2017 * Elver Davis RN - 02/02/2018 10:31 AM CDT Pt. Admitted to [id number] from OSH. Pt. A&Ox4. Pt. C/o mid [...] patient has an appointment with an OS lunch cook today (02/03) we provided him with a copy of the endocrinology consult note from 02/02. [employer]float explained the risks of leaving the hospital at this time including hypoglycemia, hyperglycemia and the complications thereof including DKA, altered consciousness and . He expressed understanding of these risks and signed the AMApaperwork. Nursing pressure control supervisor aware of situation. * Plan of [...] resume home regimen and follow-up with home lunch cook * Assessment & Plan Note - Nirmal [...] Endocrine Diabetes Inpatient Consult 02/02/2018 Camilo Curry [id number] Kris Soto MD CONSULTING PROVIDER: Nirmal Vivar [...] and severe diarrhea. He visited local ED ([facility]) and was given pain medications for concern for gastroenteritis. He was discharged home but continued to experience watery diarrhea with occasional black chunks and additional vomiting with occasional streaks of red blood. He presented to [facility] for persistent symptoms and was given IVF and monitored; during this time, his diarrhea persisted and reports>20 episodes of diarrhea since onset. He was transferred to [facility] for SBP rule out and higher level of care. He endorses dizziness and cold sweats. He denies fever, headache, chest pain. Regarding his DM2: He was diagnosed in 2010 and was started on insulin about 3 years ago. He previously followed with Dr. Power in [place], [place]. But is in the process of getting a new lunch cook due to insurance changes. He has never [...] and severe diarrhea. He visited local ED ([facility]) and was given pain medications for concern for gastroenteritis. He was discharged home but continued to experience watery diarrhea with occasional black chunks and additional vomiting with occasional streaks of red blood. He presented to [facility] for persistent symptoms and was given IVF and monitored; during this time, his diarrhea persisted and reports >20 episodes of diarrhea since onset. He was transferred to [facility] for SBP rule out and higher [...] Glucose, POC 189 70 - 199 mg/dL [facility] Blood specimen (specimen) 02/02/2018 9:19 PM CDT 02/02/2018 9:19 PM CDT Narrative [facility] - 02/02/2018 9:21 PM CDT us Jamal Patino MD LAB POCT ORDERABLES - DEV ICE Final Result Performing Organization Address City/[facility]/ZIP Co de Phone Number [facility] Department [place] [address] * Lactate (02/02/2018 5:30 PM CDT) Lactate 1.7 0.7 - 2.0 mmol/L [facility] Blood specimen (specimen) 02/02/2018 5:30 PM CDT 02/02/2018 5:49 PM CDT Narrative [facility] - 02/02/2018 6:48 PM CDT us Jamal Patino MD LAB BLOOD ORDERABLES Anastasiya l Result Performing Organization Address City/[facility]/ZIP Co de Phone Number [facility] Department [place] [address] * POCT glucose (02/02/2018 4:33 PM CDT) Glucose, POC 178 70 - 199 mg/dL [facility] Blood specimen (specimen) 02/02/2018 4:33 PM CDT 02/02/2018 4:33 PM CDT Narrative [facility] - 02/02/2018 4:48 PM CDT us Jamal Patino MD LAB POCT ORDERABLES - DEV ICE Final Result [facility] [place] [address] * US RUQ (02/02/2018 3:43 PM CDT) [...] WBC, ur 0-5 0 - 5 /HPF [facility] RBC, ur 0-5 0 - 5 /HPF [facility] Mucous, ur Present(A) [facility] Urine 02/02/2018 12:5 9 PM CDT 02/02/2018 1:36 PM CDT Narrative [facility] - 02/02/2018 1:49 PM CDT us Jamal Patino MD LAB URINE ORDERABLES Anastasiya l Result [facility] Department [place] [address] * (ABNORMAL) Urinalysis reflex to microscopic and [...] [facility] Urobilinogen, ur <2.0 <2.0 mg/dL [facility] Nitrite, ur Negative Negative [facility] Leukocyte esterase, ur Negative Negative [facility] Urine 02/02/2018 12:5 9 PM CDT 02/02/2018 1:36 PM CDT Narrative [facility] - 02/02/2018 1:47 PM CDT ?? Urine pH is affected by diet, medications, systemic acid-base disturbances, and renal tubular function. ??pH may affect urinary stone formation. ??For example, urine pH below 6.0 may help reduce the tendency for calcium phosphate stones and pH greater than 6.0 may reduce the tendency for uric acid stone formation. Source: [facility] [employer] Last revised 05-14-2017 us Jamal Patino MD LAB MICROBIOLOGY - GENERA L ORDERABLES Final Result [facility] Department [place] [address] * (ABNORMAL) Differential, auto (02/02/2018 12:23 PM CDT) Neutrophil abs 5.2 1.7 - 6.5 K/cumm [facility] Imm gran abs 0.0 0.0 - 0.1 K/cumm [facility] Lymphocyte abs 0.5(L) 0.8 - 3.3 K/cumm [facility] Monocyte abs 0.4 0.2 - 0.8 K/cumm [facility] Eosinophil abs 0.0 0.0 - 0.5 K/cumm [facility] Basophil abs 0.0 0.0 - 0.1 K/cumm [facility] Neutrophil pct 84.5 % [facility] Comment: Interpretive Data Percent cell count reference ranges are not reported, since discordance with absolute values may lead to misinterpretation of CBC data. Current Interpretive Data was last revised on 2017. Imm gran pct 0.3 % [facility] Comment: Interpretive Data Percent cell count reference ranges are not reported, since discordance with absolute values may lead to misinterpretation of CBC data. Current Interpretive Data was last revised on 2017. Lymphocyte pct 7.6 % [facility] Comment: Interpretive Data Percent cell count reference ranges are not reported, since discordance with absolute values may lead to misinterpretation of CBC data. Current Interpretive Data was last revised on 2017. Monocyte pct 6.8 % [facility] Comment: Interpretive Data Percent cell count reference ranges are not reported, since discordance with absolute values may lead to misinterpretation of CBC data. Current Interpretive Data was last revised on 2017. Eosinophil pct 0.5 % [facility] Comment: Interpretive Data Percent cell count reference ranges are not reported, since discordance with absolute values may lead to misinterpretation of CBC data. Current Interpretive Data was last revised on 2017. Basophil pct 0.3 % [facility] Comment: Interpretive Data Percent cell count reference ranges are not reported, since discordance with absolute values may lead to misinterpretation of CBC data. Current Interpretive Data was last revised on 2017. Blood specimen (specimen) 02/02/2018 12:23 PM CDT 02/02/2018 12:40 PM CDT Narrative [facility] - 02/02/2018 12:52 PM CDT Jamal Patino MD LAB BLOOD ORDERABLES Anastasiya enciso Result [facility] Department [place] [address] * (ABNORMAL) Hemoglobin A1c (02/02/2018 12:23 PM CDT) Hgb A1C 8.4(H) 4.0 - 5.6 % [facility] Estimated Average Glucose 194 mg/dL [facility] Comment: The ADA recommends reporting an estimated Average Glucose (eAG) with all Hemoglobin A1c results using the equation derived from a study of 507 normal and diabetic adults. ??Minority populations were underrepresented and children were not included. ?? (Diabetes Care 31:7826-9279, 2008). ??The eAG is not equivalent to a fasting glucose. Blood specimen (specimen) 02/02/2018 12:23 PM CDT 02/02/2018 12:41 PM CDT Narrative [facility] - 02/02/2018 1:05 PM CDT Jamla Patino MD LAB BLOOD ORDERABLES Anastasiya l Result Performing Organization Address [facility] de Phone Number [facility] [employer] [place] [address] * (ABNORMAL) aPTT (02/02/2018 12:23 PM CDT) aPTT 24.2(L) 25.0 - 37.0 sec [facility] Comment: Interpretive Data Therapeutic heparin range:60.0 - 94.0 sec based on correlation with therapeutic heparin activity range of 0.3 -0.7 Units/mL. Current interpretive data was last revised on 2011. Blood specimen (specimen) 02/02/2018 12:23 PM CDT 02/02/2018 12:36 PM CDT Narrative [facility] - 02/02/2018 1:11 PM CDT Jamal Patino MD LAB BLOOD ORDERABLES Anastasiya l Result Performing Organization Address [facility] de Phone Number [facility] [employer] [place] [address] * (ABNORMAL) Protime-INR (02/02/2018 12:23 PM CDT) PT 14.3(H) 8.5 - 13.0 sec [facility] INR 1.24(H) 0.80 - 1.21 [facility] Comment: Interpretive Data Inpatient therapeutic ranges* Atrial fibrillation ?2.0-3.0 INR Venous thrombo-embolism ?2.0-3.0 INR Bioprosthetic heart valve ?* Mechanical heart valve, bileaflet or tilting disk,aortic position ? 2.0-3.0 INR All other,or bileaflet or tilting disk, in mitral position ? 2.5-3.5 INR *See the pharmacy resource directory (PHRED) for an updated copy of the Tool Book at [email or web address] Current Interpretive Data was last revised 2011. Blood specimen (specimen) 02/02/2018 12:23 PM CDT 02/02/2018 12:36 PM CDT Narrative [facility] - 02/02/2018 1:11 PM CDT us Jamal Patino MD LAB BLOOD ORDERABLES Anastasiya l Result Performing Organization Address [facility]/ZIP Co de Phone Number [facility] Department [place] [address] * Type and screen (02/02/2018 12:23 PM CDT) ABO Rh A Positive [facility] Steve, indirect Negative [facility] Blood specimen (specimen) 02/02/2018 12:23 PM CDT 02/02/2018 12:43 PM CDT Narrative [facility] - 02/02/2018 1:42 PM CDT Has the patient had Daratumumab (Darzalex) in the past 6 months?->Unknown us Jamal Patino MD LAB BLOOD BANK TEST ORDER SELINA Final Result Performing Organization Address City/[facility]/ZIP Co de Phone Number [facility] Department [place] [address] * (ABNORMAL) CBC with auto differential (02/02/2018 12:23 PM CDT) WBC 6.2 3.8 - 9.9 K/cumm [facility] Hgb 12.9(L) 13.0 - 17.5 g/dL [facility] Hct 39.1 38.9 - 50.3 % [facility] Plt 105(L) 150 - 400 K/cumm [facility] MPV 11.7 9.1 - 12.3 fL [facility] RBC 4.77 4.30 - 5.80 M/cumm [facility] MCV 82.0 81.3 - 96.4 fL [facility] MCH 27.0(L) 27.1 - 33.3 pg [facility] MCHC 33.0 32.3 - 35.7 g/dL [facility] RDW CV 15.5(H) 11.1 - 14.9 % [facility] RDW SD 46.0 35.7 - 48.1 fL [facility] NRBC abs 0.00 0.00 - 0.01 K/cumm [facility] Blood specimen (specimen) 02/02/2018 12:23 PM CDT 02/02/2018 12:40 PM CDT Narrative [facility] - 02/02/2018 12:52 PM CDT us Jamal Patino MD LAB BLOOD ORDERABLES Anastasiya enciso Result [facility] Department [place] [address] * Phosphorus (02/02/2018 12:23 PM CDT) Phosphorus, pl 2.9 2.3 - 4.5 mg/dL [facility] Blood specimen (specimen) 02/02/2018 12:23 PM CDT 02/02/2018 12:38 PM CDT Narrative [facility] - 02/02/2018 1:04 PM CDT us Jamal Patino MD LAB BLOOD ORDERABLES Anastasiya l Result Performing Organization Address [facility] Co de Phone Number [facility] [place] [address] * Magnesium (02/02/2018 12:23 PM CDT) [facility] Magnesium 1.4 1.4 - 2.5 mg/dL [facility] Blood specimen (specimen) 02/02/2018 12:23 PM CDT 02/02/2018 12:38 PM CDT Narrative [facility] - 02/02/2018 1:04 PM CDT Jamal Patino MD LAB BLOOD ORDERABLES Anastasiya l Result Performing Organization Address [facility] Co de Phone Number [facility] Department [place] [address] * (ABNORMAL) Comprehensive metabolic panel (02/02/2018 12:23 PM CDT) [facility] Sodium 137 135 - 145 mmol/L [facility] Potassium, pl 5.0(H) 3.3 - 4.9 mmol/L [facility] Comment:Hemolyzed; (+++); po tassium value may be falsely elevated by as much as 0.6 - 1.0 mmol/L. Suggest redraw and reanalysis. Chloride 106 97 - 110 mmol/L [facility] CO2 23 22 - 32 mmol/L [facility] Anion gap 8 2 - 15 mmol/L [facility] BUN 15 8 - 25 mg/dL [facility] Creatinine 0.73(L) 0.80 - 1.30 mg/dL [facility] Glucose 255(H) 70 - 199 mg/dL [facility] Comment: Interpretive Data Fasting glucose >/= [...] 2017. Calcium 8.7 8.5 - 10.3 mg/dL [facility] Bilirubin, total 1.3(H) 0.1 - 1.2 mg/dL [facility] Protein, pl 7.1 6.5 - 8.5 g/dL [facility] Albumin 3.8 3.5 - 5.0 g/dL [facility] Alk phos 71 40 - 130 Units/L [facility] ALT 83(H) 7 - 55 Units/L [facility] AST 105(H) 10 - 50 Units/L [facility] Comment:Hemolyzed; result ma y be falsely elevated. Blood specimen (specimen) 02/02/2018 12:23 PM CDT 02/02/2018 12:38 PM CDT Narrative [facility] - 02/02/2018 1:04 PM CDT us Jamal Patino MD LAB BLOOD ORDERABLES Anastasiya l Result Performing Organization Address City/[facility]/ZIP Co de Phone Number [facility] [place] [address] * (ABNORMAL) POCT glucose (02/02/2018 12:03 PM CDT) [facility] Signature Glucose, POC 231(H) 70 - 199 mg/dL [facility] Glucose comment 1 RN Notified [facility] Glucose comment 2 Doctor Notified [facility] Blood specimen (specimen) 02/02/2018 12:03 PM CDT 02/02/2018 12:03 PM CDT Narrative [facility] - 02/02/2018 12:08 PM CDT Jamal Patino MD LAB POCT ORDERABLES - DEV ICE Final Result [facility] [place] [address] documented in this encounter Visit Diagnoses Diagnosis [...] juice (4 fluid ounces) NOT ORANGE JUICE TOOL GRINDER SET UP OPERATOR GEAR STATES GLUTOSE-15 CONTAINS GLUCOSE 40% W/W (50% [...] 1807 (Given - Provider: Elver Davis, BETHANY) insulin lispro (HumaLOG) injection 30 Units 30 [...] juice (4 fluid ounces) NOT ORANGE JUICE TOOL GRINDER SET UP OPERATOR GEAR STATES GLUTOSE-15 CONTAINS GLUCOSE 40% W/W (50% [...] 02/02/2018 documented in this encounter Care Teams Transcripter Relationship Specialty Start Date End Date Kris Soto MD [address] [place] [address] PCP - General 12/08/16 10/26/18 documented as of this encounter
--- OUTSIDE RECORDS SUMMARY | 2024-05-08 06:09 | XMS_ITS | Encounter Summary ---
Author Organization [facility] Address [address] [place] [address] Phone Care Team Providers Care Manager Document Control Name Role Phone Kris Soto MD Primary Care Provide r Encounter Details Date Type Department Care Team (Late st Contact Info) Description 02/02/2018 Orders Only [facility] Gastroenterology [address] [facility] Medicine [address]th [place] [address] [place] [id number] Svetlana Aguilar RMA Social History Tobacco Use Types Packs/Day Years Used Date Smoking Tobacco: Former Smokeless Tobacco: Never Alcohol Use Standard Drinks/Week Comments No 0 (1 standard drink = 0.6 oz pur e alcohol) Sex and Gender Information Value Date Recorded Sex Assigned at Not on file 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
--- OUTSIDE RECORDS SUMMARY | 2024-05-08 06:09 | XMS_ITS | Encounter Summary ---
Author Organization [facility] Address [address] [place] [address] Phone Care Team Providers Care Hand Rigger Name Role Phone Kris Soto MD Primary Care Provide r Encounter Details Date Type Department Care Team (Late st Contact Info) Description 10/12/2017 Documentation [facility] Gastroenterology [facility] 8th [place] [address] [place] [address] Christiana Carrillo RN Social History Tobacco Use Types Packs/Day Years Used Date Smoking Tobacco: Former Smokeless Tobacco: Never Alcohol Use Standard Drinks/Week Comments No 0 (1 standard drink = 0.6 oz pur e alcohol) Sex and Gender Information Value Date Recorded Sex Assigned at Not on file Legal Sex Male 2:52 PM INK BLENDER Gender Identity Male 10/29/2020 12:37 PM CDT Sexual Orientation Straight 10/29/2020 12 :37 PM CDT documented as of this encounter Progress Notes * Christiana Carrillo RN - 10/12/2017 4:08 PM CDT Request for Medical Records To: [facility] [place] Attn: Medical Records Department From: Christiana Carrillo RN, BSN Requesting Physician: Kathryn Ellis MD--PATIENT'S ABRASIVE GRADER HELPER Patient Name: CAMILO CURRY : 1970 Medical Records requested to facilitate treatment of our patient listed above. We are requesting: EMERGENCY ROOM INFORMATION FROM MOST RECENT VISIT: MD SUMMARY, LABS, ABDOMINAL IMAGING, ANY DIAGNOSTIC TESTING Medical Records are needed by: HEIKE Please fax to [phone]. According to HIPAA regulation, a signed patient request for release of information is NOT required WHEN the request is for TREATMENT or BILLING of a patient. Any and all assistance in returning the requested information in a timely fashion would be appreciated and would assist in expediting patientcare. If the sales effectiveness manager of your medical records department has any questions, please contact Lynda Ballard at for clarification or the HIPAA.ORG web site (HIPAA Protecting Privacy of Patient Health Information Act 08/16/04 Div of Procedural Enforcement Codes). documented in this encounter Plan of Treatment Not on file documented as of this encounter Visit Diagnoses Not on filedocumented in this encounter Care Teams Hand Rigger Relationship Specialty Start Date End Date Kris Soto MD [address] [place], [place] [id number] PCP - General 12/08/16 10/26/18 documented as of this encounter
--- OUTSIDE RECORDS SUMMARY | 2024-05-08 06:09 | XMS_ITS | Encounter Summary ---
Author Organization [facility] Address [address] [place] [address] Phone Care Team Providers Care Marine Engineer Cpvec Name Role Phone Kris Soto MD Primary Care Provide r Encounter Details Date Type Department Care Team (Late st Contact Info) Description 10/10/2017 Telephone [facility] Gastroenterology [address] [place] [address] 8th [place] [address] [place] [address] Jose Miguel MD Social History Tobacco Use Types Packs/Day Years Used Date Smoking Tobacco: Former Sex and Gender Information Value Date Recorded Sex Assigned at Not on file Legal Sex Male 2:52 PM SKEIN DRIER Gender Identity Male 10/29/2020 12:37 PM CDT Sexual Orientation Straight 10/29/2020 12 :37 PM CDT documented as of this encounter Miscellaneous Notes * Telephone Encounter - Jose Miguel MD - 10/10/2017 10:57 PM CDT Patient called stating he had a 10/10 abdominal pain. He was recently evaluated at an OSH for similar issues and was thought to be related to his gallbladder. He was then discharged and asked to follow up at [place]. He is now on his way to [place] due to RUQ abdominal pain. I suggested that he should be evaluated at [facility] and if labs or imaging are concerning he may need admission for further workup. documented in this encounter Plan of Treatment Not on file documented as of this encounter Visit Diagnoses Not on filedocumented in this encounter Care Teams Marine Engineer Cpvec Relationship Specialty Start Date End Date Kris Soto MD [address] [place] [address] PCP - General 12/08/16 10/26/18 documented as of this encounter
--- OUTSIDE RECORDS SUMMARY | 2024-05-08 06:09 | XMS_ITS | Encounter Summary ---
Author Organization [facility] Address [address] [place] [address] Phone Care Team Providers Care Application Technician Name Role Phone Kris Soto MD Primary Care Provide r Encounter Details Date Type Department Care Team (Late st Contact Info) Description 05/07/2018 Orders Only [facility] Gastroenterology [address] [facility] 8[address] [place] [address] [place] [address] Faith Hooker Social History Tobacco Use Types Packs/Day Years Used Date Smoking Tobacco: Former Smokeless Tobacco: Never Alcohol Use Standard Drinks/Week Comments No 0 (1 standard drink = 0.6 oz pur e alcohol) Sex and Gender Information Value Date Recorded Sex Assigned at Not on file Legal Sex Male 2:52 PM TOUR CONSULTANT Gender Identity Male 10/29/2020 12:37 PM CDT Sexual Orientation Straight 10/29/2020 12 :37 PM CDT documented as of this encounter Plan of Treatment Not on file documented as of this encounter Visit Diagnoses Not on filedocumented in this encounter Care Teams Application Technician Relationship Specialty Start Date End Date Kris Soto MD [address] [place] [address] PCP - General 12/08/16 10/26/18 documented as of this encounter
--- OUTSIDE RECORDS SUMMARY | 2024-05-08 06:09 | XMS_ITS | Encounter Summary ---
Author Organization [facility] Facility Care Team Providers Care Night Time Babysitter Name Role Phone Unavailable Primary Care Provider Unavailabl e Encounter Details Date Type Department Care Team (Late st Contact Info) Description 04/16/2016 8:00 AM ENTRY LEVEL INSTALLATION TECHNICIAN - 04/16/2016 11:59 PM [facility] Hospital Encounter [facility] Kory Woodard MD [address] [facility] [address] [place] [address] Social History Tobacco Use Types Packs/Day Years Used Date Smoking Tobacco: Never Assessed Sex and Gender Information Value Date Recorded Sex Assigned at Not on file Legal Sex Male 2:52 PM ENTRY LEVEL INSTALLATION TECHNICIAN Gender Identity Male 10/29/2020 12:37 PM [...]
--- OUTSIDE RECORDS SUMMARY | 2024-05-08 06:10 | XMS_ITS | Encounter Summary ---
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 Dictating: Kisha Quezada M.D. ADMISSION HISTORY AND PHYSICAL Date of Service: 08/23/2015 Admission Diagnoses: 1. Acute cholecystitis. 2. Nonalcoholic steatohepatitis (BLAND) cirrhosis. 3. Esophageal varices. 4. Diabetes. Chief Complaint: Right upper quadrant abdominal pain. History Of Present Illness: This is a 44-year-old male with a recent diagnosis of cirrhosis and esophageal varices who presented to [facility] ER with complaints of right upper quadrant [...] and he recommended just coming to the [facility] ER for evaluation with the hope that he might be able to see a liver specialist sooner than his original scheduled appointment. The patient was referred to the Liver Clinic here at [facility] by his primary care doctor for a [...] over to the Liver Clinic here at [facility] for referral to the Liver Clinic are [...] 09/04/2015 10:35 PM CDT Kisha Quezada M.D. CLA:[facility] #[id number] Editing MT: TD: 08/23/2015 07:44 AM cc: [...] (AMA) Routine 08/23/2015 5:23 PM CDT SERUM [id number] Routine 2015 5:23 PM CDT SERUM ALPHA [...] Blood glucose, POC (08/27/2015 7:55 AM CDT) [facility] Glucose, POC, bld 101 70 - 199 mg/dl HISTORICAL RESULTS Blood specimen (specimen) 08/27/2015 7:55 AM CDT Kisha Quezada MD LAB BLOOD ORDERABLES Anastasiya l Result HISTORICAL RESULTS * DISCHARGE LABORATORY CUMULATIVE REPORT (08/27/2015) Narrative 08/27/2015 Ordered by an unspecified provider. [facility] LAB BLOOD ORDERABLES Anastasiya l Result * Plasma basic metabolic panel (08/26/2015 9:38 PM CDT) [facility] Sodium 139 135 - 145 mmol/L HISTORICAL [...] ORDERABLES F inal Result Performing Organization Address City/[facility] Co de Phone Number HISTORICAL [...] ORDERABLES F inal Result Performing Organization Address [facility] de Phone Number HISTORICAL RESULTS * Blood glucose, POC (08/26/2015 8:30 PM CDT) Glucose, POC, bld 137 70 - 199 mg/dl HISTORICAL RESULTS Blood specimen (specimen) 08/26/2015 8:30 PM CDT Kisha Quezada MD LAB BLOOD ORDERABLES Anastasiya l Result Performing Organization Address [facility] de Phone Number HISTORICAL RESULTS * Blood glucose, POC (08/26/2015 5:58 PM CDT) Glucose, POC, bld 79 70 - 199 mg/dl HISTORICAL RESULTS Blood specimen (specimen) 08/26/2015 5:58 PM CDT Kisha Quezada MD LAB BLOOD ORDERABLES Anastasiya l Result Performing Organization Address [facility] Phone Number HISTORICAL RESULTS * CHEST RADIOGRAPHY, FRONTAL (AP), LATERAL (08/26/2015 12:46 PM CDT) Anatomical Region Laterality Modality N/A Radiographic Aruna ging 08/26/2015 12:4 6 PM CDT Narrative 08/27/2015 10:40 AM CDT KORY OKEEFE M.D. FINAL REPORT ACC# ??Date Time ??Exam [id number] Aug 26, 2015 12:46:00 [id number] Chest 2 views Front&Lat EXAMINATION: ?CHEST, TWO [...] OKEEFE M.D. on Aug 27 2015 10:40A [id number] Procedure Note Provider, MD Tyler - 08/24/2016 KORY OKEEFE M.D. FINAL REPORT ACC# Date Time Exam [id number] Aug 26, 2015 12:46:00 15022 Chest 2 views Front&Lat EXAMINATION: CHEST, TWO [...] OKEEFE M.D. on Aug 27 2015 10:40A [id number] us Historical Provider IMG XR PROCEDURES Final R esult * Blood glucose, POC (08/26/2015 12:15 PM CDT) Glucose, POC, bld 95 70 - 199 mg/dl HISTORICAL RESULTS Blood specimen (specimen) 08/26/2015 12:15 PM CDT us Kisha Quezada MD LAB BLOOD ORDERABLES Anastasiya enciso Result HISTORICAL RESULTS * (ABNORMAL) Plasma comprehensive metabolic panel (08/26/2015 8:41 AM CDT) Pathologist [facility] Sodium 139 135 - 145 mmol/L HISTORICAL [...] cell count (CBC) (08/26/2015 8:41 AM CDT) [facility] WBC 5.4 3.8 - 9.9 K/cumm HISTORICAL [...] ORDERABLES F inal Result Performing Organization Address City/[facility]/ZIP Co de Phone Number HISTORICAL RESULTS [...] ORDERABLES Fin al Result Performing Organization Address [facility] de Phone Number HISTORICAL RESULTS * [...] ORDERABLES Fin al Result Performing Organization Address [facility] de Phone Number HISTORICAL RESULTS * [...] performance characteristics have been verified by the [facility] Microbiology Laboratory. Current Interpretive Data was last revised on 2013. Narrative HISTORICAL RESULTS - 09/01/2015 5:42 AM CDT No growth Historical Provider LAB MICROBIOLOGY - GENERA L ORDERABLES Final Result Performing Organization Address City/[facility] Co de Phone Number HISTORICAL [...] performance characteristics have been verified by the [facility] Microbiology Laboratory. Current Interpretive Data was last revised on 2013. Narrative HISTORICAL RESULTS - 09/01/2015 5:42 AM CDT No growth us Historical Provider LAB MICROBIOLOGY - GENERA L ORDERABLES Final Result HISTORICAL RESULTS * All Microbiology Report Section (08/26/2015 12:00 AM CDT) 08/26/2015 Narrative HISTORICAL RESULTS - 09/01/2015 6:53 AM CDT ? [facility] ?[address] [facility] ?[place] [address] ? Patient Name: ??CAMILO CURRY ? Med Rec Number: [id number] ? Fin Number: ?[id number] ? Date: ?1970 ? Sex/Age: ? Male 44 years ? Admit Date: ?08/23/2015 ? Discharge Date: 08/27/2015 ? Doctor: ?Medicine , ? Facility: ?[facility] ? Location: ?OTHER ?* Abnormal ??A Alert [...] identification may be ? performed using the [employer]et[employer] Nanosphere Gram Positive Blood ? Culture Assay. ??The Nanosphere assay detects microbial DNA in ? positive blood culture broth via hybridization of target DNA to ? capture oligonucleotides on a microarray. ??This assay has been ? cleared by the [place] Food and Drug Administration and ? its performance characteristics have been verified by the ? [facility] Microbiology Laboratory.Current ? Interpretive Data was last revised on 2013. ? us Historical Provider MD LAB MICROBIOLOGY - GENERA L ORDERABLES Final Result HISTORICAL RESULTS * All Microbiology Report Section (08/26/2015 12:00 AM CDT) 08/26/2015 Narrative HISTORICAL RESULTS - 09/01/2015 6:53 AM CDT ? [facility] ?[address] [facility] ?[place] [address] ? Patient Name: ??CAMILO CURRY ? Med Rec Number: [id number] ? Fin Number: ?[id number] ? Date: ?1970 ? Sex/Age: ? Male 44 years ? Admit Date: ?08/23/2015 ? Discharge Date: 08/27/2015 ? Doctor: ?Medicine , ? Facility: ?[facility] ? Location: ?OTHER ?* Abnormal ??A Alert [...] have been verified by the ? [facility] Microbiology Laboratory.Current ? Interpretive Data was last revised on 2013. ? us Historical Provider MD LAB MICROBIOLOGY - GENERA L ORDERABLES Final Result Performing Organization Address [facility] de Phone Number HISTORICAL RESULTS * Blood glucose, POC (08/25/2015 8:31 PM CDT) Glucose, POC, bld 128 70 - 199 mg/dl HISTORICAL RESULTS Blood specimen (specimen) 08/25/2015 8:31 PM CDT Kisha Quezada MD LAB BLOOD ORDERABLES Anastasiya l Result Performing Organization Address [facility] de Phone Number HISTORICAL RESULTS * Blood glucose, POC (08/25/2015 5:13 PM CDT) Glucose, POC, bld 140 70 - 199 mg/dl HISTORICAL RESULTS Blood specimen (specimen) 08/25/2015 5:13 PM CDT Kisha Quezada MD LAB BLOOD ORDERABLES Anastasiya l Result Performing Organization Address [facility] de Phone Number HISTORICAL RESULTS * CHEST RADIOGRAPHY, FRONTAL (AP), LATERAL (08/25/2015 1:38 PM CDT) Anatomical Region Laterality Modality N/A Radiographic Aruna ging 08/25/2015 1:38 PM CDT Narrative 08/26/2015 7:39 AM CDT CLEOPATRA DAMON M.D. FINAL REPORT ACC# ??Date Time ??Exam [id number] Aug 25, 2015 13:38:00 [id number] Chest 2 views Front&Lat EXAMINATION: ?? Chest [...] DAMON M.D. on Aug 26 2015 ??7:39A [id number] Procedure Note Provider, MD Tyler - 08/24/2016 CLEOPATRA DAMON M.D. FINAL REPORT ACC# Date Time Exam [id number] Aug 25, 2015 13:38:00 [id number] Chest 2 views Front&Lat EXAMINATION: Chest 2 [...] DAMON M.D. on Aug 26 2015 7:39A [id number] us Historical Provider MD PATEL XR PROCEDURES Final R esult * Blood glucose, POC (08/25/2015 12:37 PM CDT) [facility] Glucose, POC, bld 83 70 - 199 mg/dl HISTORICAL RESULTS Blood specimen (specimen) 08/25/2015 12:37 PM CDT Kisha Quezada MD LAB BLOOD ORDERABLES Anastasiya l Result Performing Organization Address [facility] de Phone Number HISTORICAL RESULTS * Blood glucose, POC (08/25/2015 8:35 AM CDT) Glucose, POC, bld 75 70 - 199 mg/dl HISTORICAL RESULTS Blood specimen (specimen) 08/25/2015 8:35 AM CDT Kisha Quezada MD LAB BLOOD ORDERABLES Anastasiya l Result Performing Organization Address [facility] Phone Number HISTORICAL RESULTS * Serum troponin I (08/24/2015 10:37 PM CDT) Troponin I <0.03 0.00 - 0.03 ng/ml HISTORICAL RESULTS Comment: Interpretive Data Serial determinations are recommended for the diagnosis of myocardial infarction (Third Colby Definition of Myocardial Infarction. ??J Am Tor Cardiol 2012;60:1581-98). Current interpretive data was last revised on 13. Serum 08/24/2015 10:3 7 PM CDT Yariel Melchor MD LAB BLOOD ORDERABLES Final Resul t Performing Organization Address [facility] de Phone Number HISTORICAL RESULTS * XR Abdomen 2 VW (08/24/2015 9:58 PM CDT) Anatomical Region Laterality Modality Body N/A Radiographic Aruna ging 08/24/2015 9:58 PM CDT Narrative 08/25/2015 10:07 AM CDT SREEKANTH CHAMBERS M.D. FINAL REPORT ACC# ??Date Time ??Exam [id number] Aug 24, 2015 21:58:00 63722 Abdmn wi Decub &/or Erect EXAMINATION: ?? [...] CHAMBERS M.D. on Aug 25 2015 10:07A [id number] Procedure Note Provider, Tyler, - 08/24/2016 SREEKANTH CHAMBERS M.D. FINAL REPORT ACC# Date Time Exam [id number] Aug 24, 2015 21:58:00 [id number] Abdmn wi Decub &/or Erect EXAMINATION: Abdomen [...] CHAMBERS M.D. on Aug 25 2015 10:07A [id number] us Historical Provider MD PATEL XR PROCEDURES [...] (specimen) 08/24/2015 8:40 PM CDT Result [facility] LAB BLOOD ORDERABLES Anastasiya l Result Performing Organization Address [facility]/ZIP Co de Phone Number HISTORICAL RESULTS * Blood glucose, POC (08/24/2015 8:38 PM CDT) Glucose, POC, bld 98 70 - 199 mg/dl HISTORICAL RESULTS Blood specimen (specimen) 08/24/2015 8:38 PM CDT Result [facility] Kisha Quezada MD LAB BLOOD ORDERABLES Anastasiya l Result Performing Organization Address [facility] Co de Phone Number HISTORICAL [...] specimen (specimen) 08/24/2015 12:08 PM CDT Result [facility] Kisha Quezada MD LAB BLOOD ORDERABLES Anastasiya l Result Performing Organization Address [facility] de Phone Number HISTORICAL RESULTS * Blood glucose, POC (08/24/2015 8:05 AM CDT) Glucose, POC, bld 98 70 - 199 mg/dl HISTORICAL RESULTS Blood specimen (specimen) 08/24/2015 8:05 AM CDT Result [facility] Kisha Quezada MD LAB BLOOD ORDERABLES Anastasiya l Result Performing Organization Address [facility] de Phone Number HISTORICAL RESULTS * UPPER GASTROINTESTINAL ENDOSCOPY REPORT (08/24/2015) Anatomical Region Laterality Modality Other Narrative 08/24/2015 Ordered by an unspecified provider. Result [facility] Historical Provider GI PROCEDURE ORDERABLES F inal Result * ELECTROCARDIOGRAPHY (ECG) (08/24/2015) Narrative 08/24/2015 Ordered by an unspecified provider. Result [facility] Historical Provider ECG ORDERABLES Final Res ult * Blood glucose, POC (08/23/2015 8:20 PM CDT) Glucose, POC, bld 88 70 - 199 mg/dl HISTORICAL RESULTS Blood specimen (specimen) 08/23/2015 8:20 PM CDT Result [facility] Kisha Quezada MD LAB BLOOD ORDERABLES Anastasiya l Result Performing Organization Address [facility] Co de Phone Number HISTORICAL RESULTS * Serum ceruloplasmin (08/23/2015 5:23 PM CDT) Ceruloplasmin 26.0 15.0 - 30.0 mg/dl HISTORICAL RESULTS Serum 08/23/2015 5:23 PM CDT Result [facility] Historical Provider LAB BLOOD ORDERABLES Anastasiya l Result Performing Organization Address [facility] Co de Phone Number HISTORICAL RESULTS * Serum Hepatitis C virus (HCV) RNA (08/23/2015 5:23 PM CDT) Pathologist [facility] HCV RNA Not Detected HISTORI AGUILA RESULTS Comment: Interpretive data: The quantifiable range of this assay is 15 IU/mL to 100,000,000 IU/mL (1.18 log IU/mL to 8.00 log IU/mL). Testing was performed by the [employer] AmpliPrep/COLLIN TaqMan HCV Test version 2.0 ([employer] Testing performed at [facility] Current Interpretive Data was last revised on 2015. Serum 08/23/2015 5:23 PM CDT Historical Provider LAB BLOOD ORDERABLES Anastasiya l Result Performing Organization Address [facility] de Phone Number HISTORICAL RESULTS * Serum Hepatitis panel (08/23/2015 5:23 PM CDT) Pathologist [facility] HBV surface ag Negative NEG HISTO RICAL RESULTS HCV ab Negative NEG HISTORICAL RESULTS Comment: Interpretive Data If confirmation is required, call Laboratory Customer Service to request sample to be sent to [facility] for Hepatitis C Virus (HCV) RNA Detection and Quantitation by Real-Time Reverse Electronic Installer-PCR (RT-PCR). Current interpretive data was last revised [...] ORDERABLES Anastasiya enciso Result Performing Organization Address [facility] Co de Phone Number HISTORICAL [...] ORDERABLES Anastasiya l Result Performing Organization Address [facility]/ZIP Co de Phone Number HISTORICAL RESULTS [...] ORDERABLES Anastasiya l Result Performing Organization Address City/[facility] Co de Phone Number HISTORICAL RESULTS * Serum antismooth muscle ab (08/23/2015 5:23 PM CDT) Anti-smooth muscle Negative Negative HISTORICAL RESULTS Serum 08/23/2015 5:23 PM CDT Historical Provider LAB BLOOD ORDERABLES Anastasiya l Result Performing Organization Address [facility] Co de Phone Number HISTORICAL RESULTS * Serum fyran-7-yxkwgqhwtdr (08/23/2015 5:23 PM CDT) alpha-1 antitrypsin 184 90 - 200 mg/dl HISTORICAL RESULTS Serum 08/23/2015 5:23 PM CDT Historical Provider LAB BLOOD ORDERABLES Anastasiya l Result Performing Organization Address [facility] de Phone Number HISTORICAL RESULTS * Serum alpha fetoprotein (08/23/2015 5:23 PM CDT) alpha Fetoprotein 3.0 0.0 - 8.1 ng/ml HISTORICAL RESULTS Serum 08/23/2015 5:23 PM CDT Historical Provider LAB BLOOD ORDERABLES Anastasiya l Result Performing Organization Address [facility] Co de Phone Number HISTORICAL [...] agrees with it. 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 ACC# Date Time Exam [id number] Aug 23, 2015 16:23:00 05154 Abd Orgn Duplex ACC# Date Time Exam [id number] Aug 23, 2015 16:23:00 13300 Abd Orgn Duplex EXAMINATION: LIVER DOPPLER HISTORY: [...] agrees with it. ACC# ??Date Time ??Exam [id number] Aug 23, 2015 13:46:00 [id number] [employer] GB if pr EXAMINATION: ?HEPATOBILIARY SCINTIGRAPHY [...] agrees with it. ACC# Date Time Exam [id number] Aug 23, 2015 13:46:00 54022 [employer] GB if pr EXAMINATION: [...] the [place] RealTime HCV Genotype II assay ([employer] [place], [place]). Test Performed by: [address] [address] [employer] Professor: Karl Austin II, M.D., Ph.D. Historical Provider LAB BLOOD ORDERABLES Anastasiya enciso Result Performing Organization Address [facility] de Phone Number HISTORICAL RESULTS * [...] ORDERABLES Anastasiya l Result Performing Organization Address [facility] de Phone Number HISTORICAL RESULTS * [...] ORDERABLES Anastasiya l Result Performing Organization Address [facility] de Phone Number HISTORICAL RESULTS * [...] questions please call the chemistry laboratory at [phone] ??or the lab medicine resident java developer consultant [phone]. Option #2 us Historical Provider LAB BLOOD ORDERABLES Anastasiya l Result Performing Organization Address [facility] Co de Phone Number HISTORICAL RESULTS * Blood glucose, POC (08/23/2015 4:37 AM CDT) [facility] Glucose, POC, bld 95 70 - 199 mg/dl HISTORICAL RESULTS Blood specimen (specimen) 08/23/2015 4:37 AM CDT us Historical Provider LAB BLOOD ORDERABLES Anastasiya l Result Performing Organization Address [facility] Co de Phone Number HISTORICAL [...] agrees with it. ACC# ??Date Time ??Exam [id number] Aug 22, 2015 21:25:00 [id number] Sono Abd Lmtd EXAMINATION: ?? LIMITED ABDOMINAL [...] 9:51 a.m. ?? Requested By: SUJATHA PAPPAS [facility] Dictated By: ?? VIKTORIA BOWDEN M.D. ??on [...] agrees with it. ACC# Date Time Exam [id number] Aug 22, 2015 21:25:00 90401 [employer]mtd EXAMINATION: LIMITED ABDOMINAL SONOGRAM [...] at 9:51 a.m. Requested By: SUJATHA PAPPAS [facility] Dictated By: VIKTORIA BOWDEN M.D. on Aug [...] 2011. Plasma 08/22/2015 8:20 PM CDT Result [facility] Sujatha Pappas CRNA LAB BLOOD ORDERABLES Fi nal Result Performing Organization Address [facility] Co de Phone Number HISTORICAL [...] copy of the Tool Book at [email or web address] Current Interpretive Data was last revised 2011. Plasma 08/22/2015 8:20 PM CDT Sujatha Pappas CRNA LAB BLOOD ORDERABLES Fi nal Result Performing Organization Address [facility]/ZIP Co de Phone Number HISTORICAL RESULTS [...] ORDERABLES Final Res ult Performing Organization Address [facility] de Phone Number HISTORICAL RESULTS * Plasma hepatic function panel (08/22/2015 2:14 PM CDT) Pathologist [facility] Protein, pl 7.3 6.5 - 8.5 g/dl [...] Mario Ren MD LAB BLOOD [facility]ABLES [facility] Performing Organization Address [facility] de Phone Number HISTORICAL RESULTS * Plasma basic metabolic panel (08/22/2015 2:14 PM CDT) Pathologist [facility] Sodium 139 135 - 145 mmol/L HISTORICAL [...] ORDERABLES Final Res ult Performing Organization Address [facility]/ZIP Co de Phone Number HISTORICAL RESULTS [...] ORDERABLES Final Res ult Performing Organization Address [facility]/State/ZIP Co de Phone Number HISTORICAL RESULTS * [...] glucose, POC (08/22/2015 1:19 PM CDT) Pathologist [facility] Glucose, POC, bld 80 70 - 199 mg/dl HISTORICAL RESULTS Blood specimen (specimen) 08/22/2015 1:19 PM CDT Historical Provider LAB BLOOD ORDERABLES Anastasiya l Result Performing Organization Address [facility]/ZIP Co de Phone Number HISTORICAL RESULTS documented [...]
--- OUTSIDE RECORDS SUMMARY | 2024-05-08 06:10 | XMS_ITS | Encounter Summary ---
Author Organization [facility] Care Team Providers Care Auto Bumper Straightener Name Role Phone Unavailable Primary Care Provider Unavailabl e Encounter Details Date Type Department Care Team (Latest Contact Info) Description 09/26/2015 12:34 PM CDT - 09/28/2015 2:41 PM CDT Hospital Encounter [facility] Jessica Pereira MD [address] [place] [address] Lelia Garcia MD [address] [place] [address] Secondary esophageal varices without bleeding (CMS/HCC); Portal hypertension (CMS/HCC); Other diseases of stomach and duodenum; Polyp of stomach and duodenum; Anxiety disorder; Nonalcoholic steatohepatitis (BLAND); Bipolar disorder (CMS/HCC); Type 2 diabetes mellitus without complications (CMS/HCC); Sleep apnea; Acute cholecystitis; Personal history of nicotine dependence; 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; 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 Social History Tobacco Use Types Packs/Day Years Used Date Smoking Tobacco: Never Assessed Sex and Gender Information Value Date Recorded Sex Assigned at Not on file 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 Gender Identity Male 10/29/2020 12:37 PM CDT [...] BLOOD ORDERABLES Final Result Performing Organization Address [facility] de Phone Number HISTORICAL RESULTS * Blood glucose, POC (09/28/2015 8:13 AM CDT) Glucose, POC, bld 145 70 - 199 mg/dl HISTORICAL RESULTS Blood specimen (specimen) 09/28/2015 8:13 AM CDT Jessica Gleason MD LAB BLOOD ORDERABLES Final Result Performing Organization Address [facility] de Phone Number HISTORICAL RESULTS * Blood glucose, POC (09/28/2015 3:49 AM CDT) Glucose, POC, bld 102 70 - 199 mg/dl HISTORICAL RESULTS Blood specimen (specimen) 09/28/2015 3:49 AM CDT Jessica Gleason MD LAB BLOOD ORDERABLES Final Result Performing Organization Address [facility] de Phone Number HISTORICAL RESULTS * DISCHARGE [...] specimen (specimen) 09/27/2015 8:52 PM CDT Result [facility] Margoth Lafelur MD LAB BLOOD ORDERABLES Final Resul t Performing Organization Address [facility]/State/ZIP Co de Phone Number HISTORICAL RESULTS [...] specimen (specimen) 09/27/2015 8:52 PM CDT Result [facility] Margoth Lafleur MD LAB BLOOD ORDERABLES Final Resul t Performing Organization Address [facility]/ZIP Co de Phone Number HISTORICAL RESULTS * Blood glucose, POC (09/27/2015 8:23 PM CDT) Glucose, POC, bld 132 70 - 199 mg/dl HISTORICAL RESULTS Blood specimen (specimen) 09/27/2015 8:23 PM CDT Jessica Gleason MD LAB BLOOD ORDERABLES Final Result Performing Organization Address [facility]/State/ZIP Co de Phone Number HISTORICAL RESULTS * Blood glucose, POC (09/27/2015 1:54 PM CDT) Glucose, POC, bld 125 70 - 199 mg/dl HISTORICAL RESULTS Blood specimen (specimen) 09/27/2015 1:54 PM CDT Jessica Gleason MD LAB BLOOD ORDERABLES Final Result Performing Organization Address [facility] de Phone Number HISTORICAL RESULTS * Urinalysis [...] BLOOD ORDERABLES Final Result Performing Organization Address [facility] de Phone Number HISTORICAL RESULTS * Blood glucose, POC (09/27/2015 7:45 AM CDT) Glucose, POC, bld 90 70 - 199 mg/dl HISTORICAL RESULTS Blood specimen (specimen) 09/27/2015 7:45 AM CDT Jessica Gleason MD LAB BLOOD ORDERABLES Final Result Performing Organization Address [facility] de Phone Number HISTORICAL RESULTS * [...] BLOOD ORDERABLES Final Result Performing Organization Address [facility] de Phone Number HISTORICAL RESULTS * [...] updated copy of the Tool Book at [email or web address] Current Interpretive Data was last revised 2011. Plasma 09/27/2015 3:10 AM CDT Jessica Gleason MD LAB BLOOD ORDERABLES Final Result Performing Organization Address [facility] de Phone Number HISTORICAL RESULTS * [...] specimen (specimen) 09/27/2015 3:10 AM CDT Result [facility] Jessica Gleason MD LAB BLOOD ORDERABLES Final Result Performing Organization Address [facility] de Phone Number HISTORICAL RESULTS * Blood glucose, POC (09/27/2015 2:10 AM CDT) Glucose, POC, bld 140 70 - 199 mg/dl HISTORICAL RESULTS Blood specimen (specimen) 09/27/2015 2:10 AM CDT Result [facility] Jessica Gleason MD LAB BLOOD ORDERABLES Final Result Performing Organization Address [facility] de Phone Number HISTORICAL RESULTS * UPPER GASTROINTESTINAL ENDOSCOPY REPORT (09/27/2015) Anatomical Region Laterality Modality Other Narrative 09/27/2015 Ordered by an unspecified provider. Result [facility] Provider GI PROCEDURE ORDERABLES F inal Result * Blood glucose, POC (09/26/2015 11:03 PM CDT) Glucose, POC, bld 107 70 - 199 mg/dl HISTORICAL RESULTS Blood specimen (specimen) 09/26/2015 11:03 PM CDT Jessica Gleason MD LAB BLOOD ORDERABLES Final Result Performing Organization Address [facility] Co de Phone Number HISTORICAL RESULTS * Blood check sample (09/26/2015 8:15 PM CDT) Pathologist [facility] ABO, Rho(D) A Positive HISTORI AGUILA RESULTS Blood specimen (specimen) 09/26/2015 8:15 PM CDT Historical Provider LAB BLOOD ORDERABLES Anastasiya l Result Performing Organization Address [facility] de Phone Number HISTORICAL RESULTS * (ABNORMAL) Plasma hepatic function panel (09/26/2015 3:22 PM CDT) [facility] Protein, pl 8.3 6.5 - 8.5 [...] ORDERABLES Final Res ult Performing Organization Address [facility] de Phone Number HISTORICAL RESULTS * (ABNORMAL) Plasma basic metabolic panel (09/26/2015 3:22 PM CDT) Pathologist [facility] Sodium 142 135 [...] ORDERABLES Final Res ult Performing Organization Address [facility] de Phone Number HISTORICAL RESULTS * Serum lipase (09/26/2015 3:22 PM CDT) Lip 37 10 - 99 Units/L HISTORICAL RESULTS Serum 09/26/2015 3:22 PM CDT Mario Ren MD LAB BLOOD ORDERABLES Final Res ult Performing Organization Address [facility] Phone Number HISTORICAL RESULTS * [...] ORDERABLES Final Res ult Performing Organization Address [facility]/ZIP Co de Phone Number HISTORICAL RESULTS [...] Acute cholecystitis Personal history of nicotine dependence detention current use of opiate analgesic 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
--- OUTSIDE RECORDS SUMMARY | 2024-05-08 06:10 | XMS_ITS | Encounter Summary ---
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 He has had 2 endoscopy procedures and [...] HISTORY AND PHYSICAL Patient: CAMILO CURRY Account: [id number] Room No: 522-02 : 1970 Patient Type: IP Attend.: Ankush Parada M.D. Admit Date: 11/02/2015 Dict.: Ankush Parada M.D. Disch. Date: PRIMARY CARE PHYSICIAN Sean Morfin MD ADMITTING SERVICE [facility] Service CHIEF COMPLAINT Hematemesis. HPI This is [...] 11/04/2015 09:25 AM CDT Ankush Parada M.D. /[facility] TD: 11/03/2015 12:41 CC: Sean Morfin MD documented in this encounter Consult Notes * Provider, MD Tyler - 11/03/2015 12:00 AM CDT CONSULTATION REPORT Patient: CAMILO CURRY Service Date: 11/03/2015 Account: [id number] Room No: 522-02 : 1970 Patient Type: [...] intensive care unit after transfer from an [facility]. The patient presented to the emergency [...] The patient has been followed at the [facility] and also he has a history [...] Patient: CAMILO CURRY Service Date: 11/03/2015 Account: [id number] Room No: 522-02 : 1970 Patient Type: IP Attend.: Ankush Parada M.D. Admit Date: 11/02/2015 Consult.: Familia Whitaker M.D. Disch. Date: 11/05/2015 GASTROENTEROLOGY CONSULTATION CONSULTING PHYSICIAN Familia Whitaker MD REFERRING PHYSICIAN Ankush Parada MD REASON FOR CONSULTATION Gastrointestinal bleeding. Mr. Curry is a 45-year-old white gentleman who was transferred to [facility] from another hospital because of concern for possible variceal bleeding. He is known to have a history of nonalcoholic fatty liver disease with cirrhosis and has seen the medical accounting clerk at [facility]. He actually had EGD with variceal band ligation in August or September of 2015. He reported seeing old blood on his pillow at home and there was concern that he may be bleeding from his upper GI tract. He called the supervisor extrusion who referred him to be admitted, but there were no intensive care unit beds at [facility] and the patient was transferred to [facility]. He has been in the intensive care [...] ORDERABLES Final Re sult Performing Organization Address City/[facility] Co de Phone Number HISTORICAL RESULTS * Blood glucose, POC (11/05/2015 8:04 AM CDT) Glucose, POC, bld 113 70 - 199 mg/dl HISTORICAL RESULTS Blood specimen (specimen) 11/05/2015 8:04 AM CDT us Ankush Paraad MD LAB BLOOD ORDERABLES Final Re sult [...] ORDERABLES Final Re sult Performing Organization Address [facility] Co de Phone Number HISTORICAL RESULTS * Plasma partial thromboplastin time (PTT) (11/05/2015 5:49 AM CDT) Pathologist [facility] APTT 31.2 25.0 - 37.0 seconds HISTORICAL RESULTS Plasma 11/05/2015 5:49 AM CDT Ankush Parada MD LAB BLOOD ORDERABLES Final Re sult Performing Organization Address [facility] Co de Phone Number HISTORICAL RESULTS [...] HISTORICAL RESULTS Comment: If this individual is -Tanzanian, multiply result by 1.21 Repeated results of less than 60 is indicative of chronic kidney disease. MDRD formula has not been validated on individuals greater than 70 years old. Plasma 11/05/2015 5:49 AM CDT Result [facility] Ayana Jose MD LAB BLOOD ORDERABLES Final Resu lt Performing Organization Address City/[facility] Co de Phone Number HISTORICAL RESULTS * Blood glucose, POC (11/05/2015 3:17 AM CDT) Glucose, POC, bld 162 70 - 199 mg/dl HISTORICAL RESULTS Blood specimen (specimen) 11/05/2015 3:17 AM CDT Result [facility] Ankush Parada MD LAB BLOOD ORDERABLES Final Re sult Performing Organization Address [facility] Co de Phone Number HISTORICAL RESULTS * DISCHARGE LABORATORY CUMULATIVE REPORT (11/05/2015) Narrative 11/05/2015 Ordered by an unspecified provider. Result [facility] Historical Provider LAB BLOOD ORDERABLES Anastasiya l Result * UPPER GASTROINTESTINAL ENDOSCOPY REPORT (11/05/2015) Anatomical Region Laterality Modality Other Narrative 11/05/2015 Ordered by an unspecified provider. Result [facility] Historical Provider GI PROCEDURE ORDERABLES F inal Result * Blood glucose, POC (11/04/2015 10:23 PM CDT) Glucose, POC, bld 97 70 - 199 mg/dl HISTORICAL RESULTS Blood specimen (specimen) 11/04/2015 10:23 PM CDT Ankush Parada MD LAB BLOOD ORDERABLES Final Re sult Performing Organization Address [facility] de Phone Number HISTORICAL RESULTS * Blood glucose, POC (11/04/2015 5:20 PM CDT) Glucose, POC, bld 122 70 - 199 mg/dl HISTORICAL RESULTS Blood specimen (specimen) 11/04/2015 5:20 PM CDT Ankush Parada MD LAB BLOOD ORDERABLES Final Re sult Performing Organization Address [facility] de Phone Number HISTORICAL RESULTS * Blood glucose, POC (11/04/2015 12:21 PM CDT) Glucose, POC, bld 162 70 - 199 mg/dl HISTORICAL RESULTS Blood specimen (specimen) 11/04/2015 12:21 PM CDT Ankush Parada MD LAB BLOOD ORDERABLES Final Re sult Performing Organization Address [facility] de Phone Number HISTORICAL RESULTS * (ABNORMAL) Blood cell count (CBC), morphologic exam (11/04/2015 10:28 AM CDT) Pathologist [facility] WBC 2.1(L) 3.8 - 9.8 K/cumm HISTORICAL [...] HISTORICAL RESULTS Comment: If this individual is -Tanzanian, multiply result by 1.21 Repeated results of less than 60 is indicative of chronic kidney disease. MDRD formula has not been validated on individuals greater than 70 years old. Plasma 11/04/2015 10:2 8 AM CDT Ayana Jose MD LAB BLOOD ORDERABLES Final Resu lt Performing Organization Address [facility] Co de Phone Number HISTORICAL RESULTS * Blood glucose, POC (11/04/2015 7:26 AM CDT) Glucose, POC, bld 157 70 - 199 mg/dl HISTORICAL RESULTS Blood specimen (specimen) 11/04/2015 7:26 AM CDT Ankush Parada MD LAB BLOOD ORDERABLES Final Re sult Performing Organization Address [facility] de Phone Number HISTORICAL RESULTS * Blood glucose, POC (11/04/2015 2:26 AM CDT) Glucose, POC, bld 155 70 - 199 mg/dl HISTORICAL RESULTS Blood specimen (specimen) 11/04/2015 2:26 AM CDT Ankush Parada MD LAB BLOOD ORDERABLES Final Re sult Performing Organization Address [facility] Co de Phone Number HISTORICAL RESULTS * Blood glucose, POC (11/03/2015 8:28 PM CDT) Glucose, POC, bld 123 70 - 199 mg/dl HISTORICAL RESULTS Blood specimen (specimen) 11/03/2015 8:28 PM CDT Ankush Parada MD LAB BLOOD ORDERABLES Final Re sult Performing Organization Address [facility] de Phone Number HISTORICAL RESULTS * Blood glucose, POC (11/03/2015 5:41 PM CDT) Glucose, POC, bld 118 70 - 199 mg/dl HISTORICAL RESULTS Blood specimen (specimen) 11/03/2015 5:41 PM CDT Ankush Parada MD LAB BLOOD ORDERABLES Final Re sult Performing Organization Address [facility] de Phone Number HISTORICAL RESULTS * Blood glucose, POC (11/03/2015 12:18 PM CDT) Glucose, POC, bld 122 70 - 199 mg/dl HISTORICAL RESULTS Blood specimen (specimen) 11/03/2015 12:18 PM CDT Ankush Parada MD LAB BLOOD ORDERABLES Final Re sult Performing Organization Address [facility] de Phone Number HISTORICAL RESULTS * Blood glucose, POC (11/03/2015 7:57 AM CDT) Glucose, POC, bld 140 70 - 199 mg/dl HISTORICAL RESULTS Blood specimen (specimen) 11/03/2015 7:57 AM CDT Ankush Parada MD LAB BLOOD ORDERABLES Final Re sult Performing Organization Address [facility] de Phone Number HISTORICAL RESULTS * XR Chest 1 View (11/03/2015 6:17 AM CDT) Anatomical Region Laterality Modality Body, Chest N/A Radiographic Aruna ging 11/03/2015 6:17 AM CDT Narrative 11/04/2015 12:08 PM CDT DATE OF EXAM: ??Bjorn ??2 2015 ??6:17AM Acc#: ??[id number] ??EDX [id number] - XR Chest Portable ?? [...] IMPRESSION: ? NO ACUTE CARDIOPULMONARY PROCESS. ? FRUIT OR NUT GROWER: ??TR6 TRANSCRIBE DATE/TIME: ??Nov ??3 2016 ??8:18A RADIOLOGIST: ??FAITH LYNNE M.D. ??READ ON: ??Nov ??2 2015 ??1:08P ORDERING DR: AYANA JOSE M.D. THIS DOCUMENT HAS BEEN ELECTRONICALLY SIGNED BY: ??FAITH LYNNE M.D. ??ON: ??Nov ??3 2015 12:08P Attending: ??BETSY, ??ANKUSH Requesting: ??ANDRÉS, ??AYANA Requesting Fax: ??-- Attending Fax: ??[phone] Attending ID: ??[id number] Requesting ID: ??[id number] Report To 1 ID: ??[id number] Report To 1 Name: ??BETSY, ??ANKUSH Report To 1 FAX: ??[phone] Report To 2 ID: ?? Report To 2 Name: ??, ?? Report To 2 FAX: ??-- NextGen Order #: ?? Procedure Note Provider, MD Tyler - 08/24/2016 DATE OF EXAM: Nov 03 2015 6:17AM Acc#: [id number] EDX [id number] - XR Chest Portable DIAGNOSIS: [...] is normal. IMPRESSION: NO ACUTE CARDIOPULMONARY PROCESS. FRUIT OR NUT GROWER: TR6 TRANSCRIBE DATE/TIME: Nov 04 2015 8:18A RADIOLOGIST: FAITH LYNNE M.D. READ ON: Nov 03 2015 1:08P ORDERING DR: AYANA JOSE M.D. THIS DOCUMENT HAS BEEN ELECTRONICALLY SIGNED BY: FAITH LYNNE M.D. ON: Nov 04 2015 12:08P Attending: ANKUSH PARADA Requesting: AYANA JOSE Requesting Fax: -- Attending Attending ID: [id number] Requesting ID: [id number] Report To 1 ID: [id number] Report To 1 Name: ANKUSH PARADA Report To 1 FAX: [phone] Report To 2 ID: Report To 2 Name: , Report To 2 FAX: -- NextGen Order #: Historical Provider IMG XR PROCEDURES Final R esult * Blood glucose, POC (11/03/2015 4:51 AM CDT) Pathologist [facility] Glucose, POC, bld 128 70 - 199 [...] ORDERABLES Final Resu lt Performing Organization Address [facility] de Phone Number HISTORICAL RESULTS * Plasma partial thromboplastin time (PTT) (11/03/2015 3:00 AM CDT) APTT 29.8 25.0 - 37.0 seconds HISTORICAL RESULTS Plasma 11/03/2015 3:00 AM CDT Result [facility] Ayana Jose MD LAB BLOOD ORDERABLES Final Resu lt Performing Organization Address [facility] Phone Number HISTORICAL RESULTS * Plasma troponin I (11/03/2015 3:00 AM CDT) Pathologist [facility] Troponin I <0.03 0.00 - 0.14 ng/ml HISTORICAL RESULTS Comment: Troponin Reference Ranges: Normal: ?0.00 - 0.14 ng/mL Indeterminate: ?0.15 - 0.50 ng/mL CO / Cardiac Muscle Damage: ?>0.50 ng/mL Plasma 11/03/2015 3:00 AM CDT Result [facility] Ayana Jose MD LAB BLOOD ORDERABLES Final Resu lt Performing Organization Address [facility] de Phone Number HISTORICAL RESULTS * (ABNORMAL) Blood calcium, ionized (11/03/2015 3:00 AM CDT) Ca, ionized, bld, calc, bld 4.37(L) 4.60 - 5.20 mg/dl HISTORICAL RESULTS Blood specimen (specimen) 11/03/2015 3:00 AM CDT Result [facility] us Ayana Jose MD LAB BLOOD ORDERABLES Final Resu lt Performing Organization Address [facility] de Phone Number HISTORICAL RESULTS * Blood lactic acid (11/03/2015 3:00 AM CDT) Lactic acid 1.9 0.5 - 2.2 mmol/L HISTORICAL RESULTS Blood specimen (specimen) 11/03/2015 3:00 AM CDT Ayana Jose MD LAB BLOOD ORDERABLES Final Resu lt HISTORICAL RESULTS * Plasma basic metabolic panel (11/03/2015 3:00 AM CDT) Pathologist [facility] BUN 8 8 - 24 mg/dl HISTORICAL [...] HISTORICAL RESULTS Comment: If this individual is -Tanzanian, multiply result by 1.21 Repeated results of less than 60 is indicative of chronic kidney disease. MDRD formula has not been validated on individuals greater than 70 years old. Plasma 11/03/2015 3:00 AM CDT Ayana Jose MD LAB BLOOD ORDERABLES Final Resu lt HISTORICAL RESULTS * Plasma phosphorus (11/03/2015 3:00 AM CDT) Pathologist [facility] Phosphorus, pl 4.0 2.7 - 4.7 mg/dl HISTORICAL RESULTS Plasma 11/03/2015 3:00 AM CDT Ayana Jose MD LAB BLOOD ORDERABLES Final Resu lt HISTORICAL RESULTS * Plasma magnesium (11/03/2015 3:00 AM CDT) Pathologist [facility] Magnesium 1.8 1.8 - 2.6 mg/dl HISTORICAL RESULTS Plasma 11/03/2015 3:00 AM CDT Ayana Jose MD LAB BLOOD ORDERABLES Final Resu lt Performing Organization Address [facility] de Phone Number HISTORICAL RESULTS * Plasma thyroid-stimulating hormone (TSH) (11/03/2015 3:00 AM CDT) [facility] TSH 1.59 0.34 - 5.60 mcIUnits/ml HISTORICAL RESULTS Plasma 11/03/2015 3:00 AM CDT Ayana Jose MD LAB BLOOD ORDERABLES Final Resu Performing Organization Address [facility] de Phone Number HISTORICAL RESULTS * Plasma cortisol (11/03/2015 3:00 AM CDT) [facility] Cortisol 12.8 7.0 - 25.0 mcg/dl HISTORICAL [...] ORDERABLES Final Resu lt Performing Organization Address [facility] de Phone Number HISTORICAL RESULTS * (ABNORMAL) Plasma comprehensive metabolic panel (11/03/2015 3:00 AM CDT) [facility] BUN 7(L) 8 - 24 mg/dl HISTORICAL [...] ORDERABLES Final Resu lt Performing Organization Address [facility] Co de Phone Number HISTORICAL RESULTS * Plasma lipase (11/03/2015 3:00 AM CDT) Lip 27 20 - 50 Units/L HISTORICAL RESULTS Plasma 11/03/2015 3:00 AM CDT us Ayana Jose MD LAB BLOOD ORDERABLES Final Resu lt Performing Organization Address [facility] Co de Phone Number HISTORICAL RESULTS * Plasma amylase (11/03/2015 3:00 AM CDT) [address], [address] 86 28 - 100 Units/L HISTORICAL RESULTS Plasma 11/03/2015 3:00 AM CDT us Ayana Jose MD LAB BLOOD ORDERABLES Final Resu lt Performing Organization Address [facility] Co de Phone Number HISTORICAL RESULTS [...] glucose, POC (11/03/2015 2:23 AM CDT) Pathologist [facility] Glucose, POC, bld 140 70 - 199 mg/dl HISTORICAL RESULTS Blood specimen (specimen) 11/03/2015 2:23 AM CDT Ankush Parada MD LAB BLOOD ORDERABLES Final Re sult HISTORICAL RESULTS * Blood Microbiology (11/03/2015 12:00 AM CDT) 11/03/2015 Narrative HISTORICAL RESULTS - 11/08/2015 12:08 PM CDT [facility] ?Patient Name: ?CAMILO CURRY ?Med. Rec#: ?? [id number] ?Pt. Acct.#: ??[id number] ?Birthdate: ?? 1970 ?Age / Sex: ?? [...] L ORDERABLES Final Result Performing Organization Address [facility] de Phone Number HISTORICAL RESULTS * (ABNORMAL) Blood hemoglobin A1C (11/02/2015 10:00 PM CDT) [facility] Hgb A1C 6.8(H) 4.0 - 6.0 % HISTORICAL RESULTS Comment: Hemoglobin A1c ADA Interpretive Guidelines: ?<7% ?? Glycemia controlled ?>8% ?? Hyperglycemia, additional action recommended ?Hema Immunochemical Method Blood specimen (specimen) 11/02/2015 10:00 PM CDT Narrative HISTORICAL RESULTS - 11/03/2015 7:03 AM CDT Test performed at [facility], [address] [place] [address], [id number]. [place] Ayana Jose MD LAB BLOOD ORDERABLES Final Resu lt Performing Organization Address [facility] de Phone Number HISTORICAL RESULTS documented in [...]
--- OUTSIDE RECORDS SUMMARY | 2024-05-08 06:10 | XMS_ITS | Encounter Summary ---
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
--- OUTSIDE RECORDS SUMMARY | 2024-05-08 06:10 | XMS_ITS | Encounter Summary ---
Author Organization [facility] Healthcare Address [address] [place] [address] Care Team Providers Care Substation Technician Name Role Phone Unavailable Primary Care Provider Unavailabl e Encounter Details Date Type Department Care Team (Late st Contact Info) Description 01/01/2015 9:11 AM CDT - 01/01/2015 11:59 PM CDT Hospital Encounter [facility] Sean Garcia MD [address] [address] Spinal stenosis of lumbar region without neurogenic claudication; Degeneration of lumbar or lumbosacral intervertebral disc Social History Tobacco Use Types Packs/Day Years Used Date Smoking Tobacco: Never Assessed Sex and Gender Information Value Date Recorded Sex Assigned at Not on file 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 3. MILD DEGENERATIVE DISC DISEASE AT L4-L5. Interpreting Physician: CHATO SEARS M.D. Read on: Jan 01 201510:03A Transcribed by: christina On: Jan 01 2015 10:44A Approved Electronically by: CHATO SEARS M.D. on: Jan 01 201510:56A Attending: NO, NAME Requesting: SEAN MONTES Requesting Fax: -- Attending Fax: -- Attending ID: [id number] Requesting ID: [id number] Report To 1 ID: [id number] Report To 1 Name: SEAN MONTES Report To 1 FAX: -- NextGen Order #: us Historical Provider MD PATEL MRI PROCEDURES Final Result documented in this encounter Visit Diagnoses Diagnosis Spinal stenosis of lumbar region without neurogenic claudication Degeneration of lumbar or lumbosacral intervertebral disc documented in this encounter
--- OUTSIDE RECORDS SUMMARY | 2024-05-08 06:10 | XMS_ITS | Encounter Summary ---
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 FINAL REPORT ACC# ??Date Time ??Exam [id number] October 02, 2015 13:46:00 [id number] Abd Orgn Duplex [id number] October 02, 2015 13:46:00 [id number] Sono Abd Lmtd EXAMINATION: ? Right upper [...] GIBSON M.D. on Oct 02 2015 ??2:12P [id number] Procedure Note Provider, MD Tyler - 08/24/2016 KARL GIBSON M.D. FINAL REPORT ACC# Date Time Exam [id number] October 02, 2015 13:46:00 14994 Abd Orgn Duplex [id number] October 02, 2015 13:46:00 [id number] Sono Abd Lmtd EXAMINATION: Right upper quadrant [...] GIBSON M.D. on Oct 02 2015 2:12P [id number] us Historical Provider MD PATEL US PROCEDURES Final R esult * US Abdomen Limited (10/02/2015 1:46 PM CDT) Anatomical Region Laterality Modality Abdomen N/A Ultrasound 10/02/2015 1:46 PM CDT Narrative 10/02/2015 2:12 PM CDT KARL GIBSON M.D. FINAL REPORT ACC# ??Date Time ??Exam [id number] October 02, 2015 13:46:00 51715 Abd Orgn Duplex [id number] October 02, 2015 13:46:00 44813 Sono Abd Lmtd EXAMINATION: ? Right upper [...] M.D. FINAL REPORT ACC# Date Time Exam [id number] October 02, 2015 13:46:00 05337 Abd Orgn Duplex [id number] October 02, 2015 13:46:00 [id number] Sono Abd Lmtd EXAMINATION: Right upper quadrant [...]
--- OUTSIDE RECORDS SUMMARY | 2024-05-08 06:13 | XMS_ITS | Continuity of Care Document ---
Author Organization [facility] [place] [address] [place] [address] Care Team Providers Care Barge Hand Name Role Phone JANETH PAVON Primary Care Provider [phone] Assessment No assessment recorded. Plan of Treatment Reminders Order Date Submit Date Provider Last Modified By Organization Details Last Modified Time Details Appointments None recorded. Lab urinalysis , dipstick 2023 024 MICKEY In-Office Order, Internal Use Only DO Not Attach Compendium DO Not Attach Compendium, Do Not Delete/merge, [id number] 10:17:29 Referral None recorded. Procedures None recorded. Surgeries None recorded. Imaging None recorded. Medication Orders None recorded. Patient TargetsNo targets recorded. Patient Instructions Encounter Date Encounter Id Patient Instructions Last Modified By Organization Details Last Modified Time 04/06/2024 [id number] painful urinatio n (dysuria): care instructions jnanney [...] DO Not Attach Compendium, Do Not Delete/merge, [id number] 04/06/2024 10:08:18 04/06/20 24 04/06/2024 urina lysis [...] 04/06/2024 urina lysis , dipst ick Specific Yeso 1.015 Not Available In-Off ice Order Internal [...] DO Not Attach Compendium, Do Not Delete/merge, [id number] 04/06/2024 10:08:18 04/06/20 24 04/06/2024 urina lysis , dipst ick Glucose 1000 Not Available In-Office Order Internal Use Only DO Not Attach Compendium DO Not Attach Compendium, Do Not Delete/merge, [id number] 04/06/2024 10:08:18 04/06/20 24 04/06/2024 urina lysis , dipst ick Appearance Clear Not Available In-Offi ce Order Internal Use Only DO Not Attach Compendium DO Not Attach Compendium, Do Not Delete/merge, [id number] 04/06/2024 10:08:18 04/06/20 24 04/06/2024 urina lysis , dipst ick Color Yellow Not Available In-Office Order Internal Use Only DO Not Attach Compendium DO Not Attach Compendium, Do Not Delete/merge, [id number] 04/06/2024 10:08:18 04/17/20 24 04/16/2024 MRI, lumba r spine , w/o contr ast No observ ation record ed. [facility] [address] [place], [address], 04/18/2024 12:31:37 Result Notes None recorded. Problems Name Problem SNOMED Code Status Onset Date Resolution Date Notes Provider Name and Address Organization Details Recorded Time Diabetes mellitus 61676155 Active 2018 BEBO [place], [place] - [facility] 10:51:15 Liver finding 821750585 Active 2018 [facility] [place], [place] [facility] 10:51:15 Hyperglycem ia due to type 2 diabetes mellitus 4284800212711 09 Active BEBO [place] [facility] 4 09:09:59 Type 2 diabetes mellitus in obese 04645129 Active BEBO [place] [facility] 10:51:15 Bacteremia 8547474 Active [facility]BO [place] [facility] 10:51:15 Gastroesoph ageal reflux disease 272408231 Active BEBO [place] - [facility] 1 10:51:15 Abscess 462195447 Active [facility]BO [place] - [facility] 1 10:51:15 Backache 137166585 Active BEBO [place] - [facility] 1 10:51:15 Hepatic failure 17912233 BEBO [place] - [facility] 1 10:51:15 [...] Name and Address Organization Details Recorded Time 438108 Medicinal product containin g penicilli n and acting as antibacte rial agent (product) medicatio n Not available Not available Not available 12/16/2017 06245 05 SNOMED BEBO Andino, [place] - [facility] 8 11:58:06 651566 Substance with sulfonami de structure and antibacte rial mechanism of action (substanc e) medicatio n Not available Not available Not available 12/16/2017 73191 8003 SNBEBO Severino, [place] - [facility] 8 11:58:12 233246 Nexium medicatio n Not available Not available Not available 12/16/2017 98774 9 RxNorm BEBO Andino, [place] - [facility] 8 11:58:19 547727 erythromy roxana medicatio n Not available Not available Not available 12/16/2017 4053 RxNorm BEBO Andino, [place] - [facility] 8 11:58:25 824992 Iodinated contrast media (substanc e) medicatio n Not available Not available Not available 12/16/2017 75431 2004 SNBEBO Severino, [place] - [facility] 8 11:58:35 773982 ciproflox acin medicatio n Not available Not available Not available 12/16/2017 2551 RxNorm BEBO [place], [place] - [facility] 8 11:58:48 925676 Azactam medicatio n Not available Not available Not available 12/16/201728902 1 RxNorm [place]BO [place], [place] 8 11:58:56 898323 aztreonam medicatio n Not available Not available Not available 12/16/2017 1272 RxNorm BEBO Andino, [facility] 8 11:59:03 898609 octreotid e Not available Not available Not available Not available 12/16/2017 7617 RxNorm BEBO [place] 8 11:59:10 278849 duloxetin e medicatio n Not available Not available Not available 12/16/2017 03965 RxNorm [place]BO [place], [place] 8 11:59:19 161950 oxycodone medicatio n other Not available Not available 03/19/2021 7804 RxNorm AMY Mane Mathur BE[facility] [place], [facility] 16:02:30 Medications Name Sig Start Date [...] TABLET BY MOUTH 3 TIMES A DAY 2023 active Not Available Not Available Not Avai lable Lidocaine Viscous 2 % mucosal solution active [...] TABLET BY MOUTH TWICE A DAY NEEDED 2023 active Not Available Not Available Not Avai lable clindamycin HCl 150 mg capsule Take 1 [...] Not Available Not Available No t Available dicyclomine 20 mg tablet 02/09 completed Not Available Not Available Not Available [facility] Ultra Test strips USE FOR TESTING BEFORE [...] day by oral route for 7 days. 01/25 /2023 completed Not Available Not Available Not Available [...] tablet TAKE ONE TABLET BY MOUTH DAILY 2023 active Not Available Not Available Not Avai lable ergocalcife rol (vitamin D2) 1,250 mcg (50,000 unit) capsule TAKE 1 CAPSULE BY MOUTH WEEKLY FOR 12 WEEKS ONLY 05/28 completed Not Available Not Available Not Available albuterol sulfate HFA 90 mcg/actuati on aerosol inhaler INHALE 2 PUFFS BY MOUTH EVERY 4 HOURS NEEDED 2023 active Not Available Not Available Not Avai lable ketoconazol e 2 % topical cream APPLY [...] TAKE 30ML. BY MOUTH TWICE A DAY 2023 active Not Available Not Available Not Avai lable naproxen 500 mg tablet active Not Available [...] Available TRUEplus Pen Needle 31 gauge x 09/16 USE DIRECTED 4 TIMES A DAY DXDX [...] Updated DateTime 4 171.45 cm 34.5 kg/m2 824933. 9 g 95 % 95 % 102 /min 149 mm[Hg] 91 mm[Hg] Karina Alvarez [place] - [facility] 4 10:09:39 Social History Question Answer Notes LastModified by Organizat ion Details LastModified Time Tobacco Smoking Status Former Smoker [facility] [place], [place] - [facility] 12/16/2017 12:02:47 What Is Your [...] Anxious, Or Unable To Sleep At Night)? [id number] [email or web address] Information not available 08/21/2021 Do You [...] Atrial Fibrillation N High Blood Pressure N Kidney or Bladder Problems N Thyroid Problems N GI Problems Y Depression Y COPD N Blood Clots N Skin Problems N Anemia N Heart Attack ([place]) N Anxiety Disorder Y Diabetes Y Muscle, [...] mcg/0.3 mL dose 12/08/2020 completed [facility] Available [facility] 4 10:49:05 COVID-19, mRNA, LNP-S, PF, 30 mcg/0.3 mL dose 12/29/2020 completed Not Available [facility] 4 10:49:05 Hep A-Hep B 09/10/2015 completed Amanda Amin MA null, [place] - [facility] 07/20/2023 09:11:13 Past Encounters Encounter ID Performer Location Encounter Start Date Encounter Closed Date Diagnosis/Indication Diagnosis SNOMED-CT Code Diagnosis ICD10 Code Diagnosis Note [id number] Janeth Pavon PA-C [facility] [address] [place] [address] 03/08/2024 14:46:39 03/09/2024 16:00:13 Seizure 12927768 G40.89 Uncontroll ed type 2 diabetes mellitus 997418550 E11.65 Dissociati ve convulsions 189764576 F44.5 Overweight 173800863 E66 .3 [id number] Janeth Pavon PA-C [facility] [address] [place] [address] 03/23/2024 10:36:19 03/28/2024 10:16:17 Lumbar radiculopathy 486650504 M54.16 Uncontroll ed type 2 diabetes mellitus 377968851 E11.65 Overweight 855188959 E66 .3 [id number] Janeth Pavon PA-C [facility] [address] [place] [address] 04/06/2024 09:53:53 04/06/2024 16:23:24 Dysuria 38381472 R30.0 Uncontroll ed type 2 diabetes mellitus 187200109 E11.65 Generalize d anxiety disorder 71517689 F41.1 Overweight 969849797 E66 .3 Health Concerns Section Related Observation LastModified by Organization Detai ls LastModified Time None Recorded Concern Status LastModified by Organization Details LastModified Time None Recorded Payers Encounter Date Sequence Insurance Name Policy Number Policy Cordero Covered Member ID Cordero Member ID Guarantor Name 04/06/2024 1 [employer] BETTER HEALTH OF [place] ON OR AFTER 04/03/2020 (MEDICAID REPLACEMENT - HMO) Camilo Curry [id number] Camilo Curry Notes Date Note Type Note Provider Name and Address Organization Details Recorded Time 04/06/2024 text/html has burning urination for a week... every hour frequency...says he has been drinking nikhil justice vs nausea...also needs something for sedation for MRI Janeth Pavon PA-C Attn: Accounting,[address] [place], [address], [place] [facility] 04/06/2024 10:29:01
--- OUTSIDE RECORDS SUMMARY | 2024-05-08 06:13 | XMS_ITS | Continuity of Care Document ---
Author Organization [facility] Address [address] [place] [address] Care Team Providers Care Mis Manager Name Role Phone JANETH PAVON Primary Care Provider Assessment No assessment recorded. Plan of Treatment Reminders Order Date Submit Date Provider Last Modified By Organization Details Last Modified Time Details Appointments None recorded. Lab None recorded. Referral None recorded. Procedures None recorded. Surgeries None recorded. Imaging MRI, lumbar spine, w/o contrast 2023 024 [facility], [address] [place], [address], 07:55:02 Medication Orders None recorded. Patient TargetsNo targets recorded. Patient Instructions Encounter Date Encounter Id Patient Instructions Last Modified By Organization Details Last Modified Time 03/23/2024 [id number] A healthy lifestyle: care instructions jnanney Not available 03/23/2024 11:17:48 type 2 diabetes: care instructions jnanney Not available 03/23/2024 11:17:48 Reason for Referral None Reported. Results Created Date Observation Date Name Description Value Unit Range Abnormal Flag Note LastModifiedBy Organization Detail LastModifiedTime 02/24/2002/23/2024 XR, abdom en No observ ation record ed. [facility] [address] [place], [address], 02/24/2024 08:59:19 04/17/20 24 04/16/2024 MRI, lumba r spine , w/o contr ast No observ ation record ed. [facility] [address] [place], [address], 04/18/2024 12:31:37 Result Notes None recorded. Problems Name Problem SNOMED Code Status Onset Date Resolution Date Notes Provider Name and Address Organization Details Recorded Time Diabetes mellitus 11358163 Active 2018 [facility] [place], [place] - [facility] 1 10:51:15 Liver finding 040608498 Active 2018 [facility] [place] [facility] 1 10:51:15 Hyperglycem ia due to type 2 diabetes mellitus 6553670372028 09 Active [facility] [place] [facility] 4 09:09:59 Type 2 diabetes mellitus in obese 40486912 Active [facility] [place] [facility] 1 10:51:15 Bacteremia 2589469 Active [facility] [place] [facility] 10:51:15 Gastroesoph ageal reflux disease 002275383 Active [facility] [place] [facility] 1 10:51:15 Abscess 789557788 Active [facility] [place] [facility] 10:51:15 Backache 224176607 Active [facility] [place] [facility] 10:51:15 Hepatic failure 43052648 Active [facility] [place] [facility] 10:51:15 [...] Name and Address Organization Details Recorded Time 997839 Medicinal product containin g penicilli n and acting as antibacte rial agent (product) medicatio n Not available Not available Not available 12/16/2017 51103 05 SNOMED [facility] [place], [place] - [facility] 8 11:58:06 131285 Substance with sulfonami de structure and antibacte rial mechanism of action (substanc e) medicatio n Not available Not available Not available 12/16/2017 22055 8003 SNOMED BEBO Andino, [facility] SI 8 11:58:12 399851 Nexium medicatio n Not available Not available Not available 12/16/2017 29260 9 RxNoBEBO Dowell, [facility] 8 11:58:19 956161 erythromy roxana medicatio n Not available Not available Not available 12/16/2017 4053 BEBO [place], [place] - [facility] 8 11:58:25 015733 Iodinated contrast media (substanc e) medicatio n Not available Not available Not available 12/16/2017 39315 2004 SNOMED BEBO [place], [place] - [facility] 8 11:58:35 959607 ciproflox acin medicatio n Not available Not available Not available 12/16/2017 2551 RxNoBEBO [place], [place] - [facility] 8 11:58:48 701565 Azactam medicatio n Not available Not available Not available 12/16/2017 52772 1 RxNoBEBO [place], [place] - [facility] 8 11:58:56 844676 aztreonam medicatio n Not available Not available Not available 12/16/2017 1272 RxNoBEBO [place] - [facility] 8 11:59:03 745258 octreotid e Not available Not available Not available Not available 12/16/2017 7617 RxNoBEBO [place], [place] - [facility] 8 11:59:10 971383 duloxetin e medicatio n Not available Not available Not available 12/16/2017 93146 RxNoBEBO [place], [place] - [facility] 8 11:59:19 172854 oxycodone medicatio n other Not available Not available 03/19/2021 7804 RxNorm AMY BAUMAN S Amanda Amin MA [facility], [place] - [facility] 16:02:30 Medications Name [...] completed Not Available Not Available Not Available [employer] Ultra Test strips USE FOR TESTING BEFORE EACH MEAL AND AT BEDTIME active Not Available Not Available No t Available hydrocodone 7.5 mg-acetamin ophen 325 mg tablet 04/03 /2024 completed Not Available Not Available Not Available [...] Updated DateTime 4 171.45 cm 35 kg/m2 649622. 47 g 97 % 97 % 97 /min 128 mm[Hg] 81 mm[Hg] Karina Alvarez MA [place] - [facility] 4 10:54:27 Social History Question Answer Notes LastModified by Organizat ion Details LastModified Time Tobacco Smoking Status Former Smoker Julia Guerrier [place] null, [place] - [facility] 12/16/2017 12:02:47 What Is Your Level Of [...] Anxious, Or Unable To Sleep At Night)? [id number] [email or web address] Information not available 08/21/2021 Do You [...] Atrial Fibrillation N High Blood Pressure N Depression Y COPD N Blood Clots N Anxiety Disorder Y Muscle, Joint, or Bone Problems N Acid Reflux (GERD) N Cancer N Stroke N High Cholesterol N Liver Disease Y Headaches Y Kidney or Bladder Problems N Thyroid Problems N GI Problems Y Skin Problems N Anemia N Heart Attack ([place]) N Diabetes Y Seizures/Epilepsy N Asthma N Allergies Y Hepatitis N Osteoporosis N Heart Failure N Immunizations Vaccine Type Date Status Note Provider Nam e and Address Organization Details Recorded Time COVID-19, mRNA, LNP-S, PF, 30 mcg/0.3 mL dose 12/08/2020 completed Not Available [facility] 4 10:49:05 COVID-19, mRNA, LNP-S, PF, 30 mcg/0.3 mL dose 12/29/2020 completed Not Available [facility] 4 10:49:05 Hep A-Hep B 09/10/2015 completed Amanda Amin MA [place], [place] - [facility] 07/20/2023 09:11:13 Past Encounters Encounter ID Performer Location Encounter Start Date Encounter Closed Date Diagnosis/Indication Diagnosis SNOMED-CT Code Diagnosis ICD10 Code [id number] TOM Kunz [address] [place] [address] 03/03/2024 10:44:06 03/04/2024 13:36:40 Chronic low back pain 460856436 M54.59 Morbid obesity 813705214 E66.01 [id number] TOM Kunz [address] [place] [address] 03/08/2024 14:46:39 03/09/2024 16:00:13 Seizure 80194098 G40.89 Uncontroll ed type 2 diabetes mellitus 699559676 E11.65 Dissociati ve convulsions 639352481 F44.5 Overweight 762947592 E66 .3 [id number] TOM Kunz [address] [place] [address] 03/23/2024 10:36:19 03/28/2024 10:16:17 Lumbar radiculopathy 004934631 M54.16 Uncontroll ed type 2 diabetes mellitus 203898832 E11.65 Overweight 322462627 E66 .3 Health Concerns Section Related Observation LastModified by Organization Sherine ls LastModified Time None Recorded Concern Status LastModified by Organization Details LastModified Time None Recorded Payers Encounter Date Sequence Insurance Name Policy Number Policy Cordero Covered Member ID Cordero Member ID Guarantor Name 03/23/2024 1 [employer] BETTER [place] - [place] ON OR AFTER 2020 (MEDICAID REPLACEMENT - HMO) Camilo Patricio [id number] Camilo Curry Notes Date Note Type Note Provider Name and Address Organization Details Recorded Time 03/23/2024 text/html injured his lower back moving furniture...nee ds MRI...xray and CT spine were negative...phys therapy was ineffective...w as just in ER Janeth Pavon PA-C Attn: Accounting,[address] [facility], [place], [address], [place] - [facility] 03/23/2024 11:18:37
--- OUTSIDE RECORDS SUMMARY | 2024-05-08 06:13 | XMS_ITS | Data Portability ---
[facility] Organization [facility] [address] [facility] [place] [address] Care Team Providers Care Legal Mediator Name Role Phone JANETH PAVON Primary Care Provider [phone] Assessment No assessment recorded. Plan of Treatment Reminders Order Date Submit Date Provider Last Modified By Organization Details Last Modified Time Details Appointments None recorded. Lab urinalysis , dipstick 2023 024 FORBES In-Office Order, Internal Use Only DO Not Attach Compendium DO Not Attach Compendium, Do Not Delete/merge, [id number] 4 10:17:29 Referral endocrinol ogy referral 2023 024 MICKEY Power MD, [address] [place], [address], 4 09:49:[address] referral 2023 024 [email or web address] [place], [address], [address], 4 10:45:50 Procedures None recorded. Surgeries None recorded. Imaging MRI, lumbar spine, w/o contrast 2023 024 [facility], [address] [place], [address], 4 07:55:02 Medication Orders None recorded. Patient TargetsNo targets recorded. Patient Instructions Encounter Date Encounter Id Patient Instructions Last Modified By Organization Details Last Modified Time 01/26/2024 [id number] A healthy lifestyle: care instructions jnanney Not available 01/26/2024 11:30:21 learning about type 2 diabetes jnanney Not available 01/26/2024 11:24:47 type 2 diabetes: care instructions jnanney Not available 01/26/2024 11:24:47 cirrhosis: care instructions jnanney Not available 01/26/2024 11:24:47 liver disease diet: care instructions jnanney Not available 01/26/2024 11:24:47 03/03/2024 [id number] A healthy lifestyle: care instructions jnanney Not available 03/03/2024 11:27:32 03/08/2024 [id number] A healthy lifestyle: care instructions jnanney Not available 03/08/2024 15:26:42 type 2 diabetes: care instructions jnanney Not available 03/08/2024 15:26:42 03/23/2024 [id number] A healthy lifestyle: care instructions jnanney Not available 03/23/2024 11:17:48 type 2 diabetes: care instructions jnanney Not available 03/23/2024 11:17:48 04/06/2024 [id number] painful urinatio n (dysuria): care instructions jnanney Not available 04/06/2024 10:11:20 When You Want to Lose Weight: Care Instructions jnanney Not available 04/06/2024 10:27:46 type 2 diabetes: care instructions jnanney Not available 04/06/2024 10:27:46 Reason for Referral Endocrinology Referral for T ype 2 diabetes mellitus Referring Physician: Janeth Pavon [facility], Encounter Date: 01/26/2024 Storage Management Architect Referral for Ci rrhosis of liver Referring Physician: Janeth Pavon [facility], Encounter Date: 01/26/2024 Results Created Date Observation Date Name Description Value Unit Range Abnormal Flag Note LastModifiedBy Organization Detail LastModifiedTime 01/14/2001/14/2024 drug scree n, urine Methamphetam ine Negati ve Not Available In-Office Order Internal Use Only DO Not Attach Compendium DO Not Attach Compendium, Do Not Delete/merge, [id number] 01/14/2024 09:08:26 01/14/20 24 01/14/2024 drug scree [...] DO Not Attach Compendium, Do Not Delete/merge, [id number] 04/06/2024 10:08:18 04/06/20 24 04/06/2024 urina lysis , dipst ick Nitrite negati ve Not Available In-Office Order Internal Use Only DO Not Attach Compendium DO Not Attach Compendium, Do Not Delete/merge, [id number] 04/06/2024 10:08:18 04/06/20 24 04/06/2024 urina lysis , dipst ick Urobilinogen .2 Not Available In-Of fice Order Internal Use Only DO Not Attach Compendium DO Not Attach Compendium, Do Not Delete/merge, 04/06/2024 10:08:18 04/06/20 24 04/06/2024 urina lysis , dipst ick Protein Negati ve Not Available In-Office Order Internal Use Only DO Not Attach Compendium DO Not Attach Compendium, Do Not Delete/merge, [id number] 04/06/2024 10:08:18 04/06/20 24 04/06/2024 urina lysis , dipst ick pH 6.0 Not Available In-Office Order Internal Use Only DO Not Attach Compendium DO Not Attach Compendium, Do Not Delete/merge, [id number] 04/06/2024 10:08:18 04/06/20 24 04/06/2024 urina lysis , dipst ick Blood Negati ve Not Available In-Office Order Internal Use Only DO Not Attach Compendium DO Not Attach Compendium, Do Not Delete/merge, [id number] 04/06/2024 10:08:18 04/06/20 24 04/06/2024 urina lysis , dipst ick Specific Willits 1.015 Not Available In-Off ice Order Internal Use Only DO Not Attach Compendium DO Not Attach Compendium, Do Not Delete/merge, [id number] 04/06/2024 10:08:18 04/06/20 24 04/06/2024 urina lysis , dipst ick Ketone Trace Not Available In-Office Order Internal Use Only DO Not Attach Compendium DO Not Attach Compendium, Do Not Delete/merge, [id number] 04/06/2024 10:08:18 04/06/20 24 04/06/2024 urina lysis , dipst ick Bilirubin Negati ve Not Available In-Office Order Internal Use Only DO Not Attach Compendium DO Not Attach Compendium, Do Not Delete/merge, [id number] 04/06/2024 10:08:18 04/06/20 24 04/06/2024 urina lysis , dipst ick Glucose 1000 Not Available In-Office Order Internal Use Only DO Not Attach Compendium DO Not Attach Compendium, Do Not Delete/merge, [id number] 04/06/2024 10:08:18 04/06/20 24 04/06/2024 urina lysis , dipst ick Appearance Clear Not Available In-Offi ce Order Internal Use Only DO Not Attach Compendium DO Not Attach Compendium, Do Not Delete/merge, [id number] 04/06/2024 10:08:18 04/06/20 24 04/06/2024 urina lysis , dipst ick Color Yellow Not Available In-Office Order Internal Use Only DO Not Attach Compendium DO Not Attach Compendium, Do Not Delete/merge, [id number] 04/06/2024 10:08:18 01/14/20 24 01/14/2024 XR, chest No observ ation record ed. [facility] [address] [place], [address], 01/14/2024 11:28:00 01/23/20 24 01/23/2024 CT, abdom en + pelvi s, w/ contr ast No observ ation record ed. [facility] [address] [place], [address], 01/25/2024 08:58:30 02/24/20 24 02/23/2024 XR, abdom en No observ ation record ed. [facility] [address] [place], [address], 02/24/2024 08:59:19 04/17/20 24 04/16/2024 MRI, lumba r spine , w/o contr ast No observ ation record ed. MICKEY [facility] [address] [place], [address], 04/18/2024 12:31:37 Result Notes None recorded. Problems Name Problem SNOMED Code Status Onset Date Resolution Date Notes Provider Name and Address Organization Details Recorded Time Diabetes mellitus 12272140 Active 2018 Amanda Amin [place], [place] [facility] 1 10:51:15 Liver finding 827265793 Active 2018 Amanda Amin [place] [facility] 1 10:51:15 Hyperglycem ia due to type 2 diabetes mellitus 3698292676845 09 Active Amanda Amin [place] [facility] 4 09:09:59 Type 2 diabetes mellitus in obese 70915525 Active Amanda Amin [place] [facility] 1 10:51:15 Bacteremia 0656606 Active Amanda Amin [place] [facility] 10:51:15 Gastroesoph ageal reflux disease 946742819 Active Amanda Amin [place] [facility] 10:51:15 Abscess 421352405 Active Amanda Amin [place] [facility] 10:51:15 Backache 531377552 Active Amanda [place] [facility] 10:51:15 Hepatic failure 81993610 Active Amanda Amin [place] [facility] 10:51:15 Problem Notes None recorded. Procedures Surgical History Date Name Laterality Status Provider Name and Address Organization Details Recorded Time 6 colonoscopy completed Amanda Amin [place] [facility] 11/15/2021 15:39:15 Imaging Results Imaging Date Name Status LastModified by Organiz ation Details LastModified Time 01/14/2024 XR, chest completed [email or web address] [facility] [address] [place], [address], 01/14/2024 11:28:00 01/23/2024 CT, abdomen + pelvis, w/ contrast completed [facility] [address] [place], [address], 01/25/2024 08:58:30 02/23/2024 XR, abdomen completed [facility] [address] [place], [address], 02/24/2024 08:59:19 04/16/2024 MRI, lumbar spine, w/o contrast completed [facility] [address] [place], [address], 04/18/2024 12:31:37 Procedure Notes None recorded. Medical Equipment None Reported. Allergies Allergen ID Allergen Name Allergen Category Reaction Reaction Severity Criticality Documentation Date Start Date Code Code System Note Provider Name and Address Organization Details Recorded Time 982057 Medicinal product containin g penicilli n and acting as antibacte rial agent (product) medicatio n Not available Not available Not available 12/16/2017 59271 05 SNOMED BEBO [place], [place] - [facility] 8 11:58:06 105029 Substance with sulfonami de structure and antibacte rial mechanism of action (substanc e) medicatio n Not available Not available Not available 12/16/2017 52123 8003 SNBEBO [place], [place] - [facility] 8 11:58:12 731073 Nexium medicatio n Not available Not available Not available 12/16/2017 18826 9 RxNorm BEBO [place], [place] - [facility] 8 11:58:19 575076 erythromy roxana medicatio n Not available Not available Not available 12/16/2017 4053 RxBetzaidarm BEBO [place], [place] - [facility] 8 11:58:25 626019 Iodinated contrast media (substanc e) medicatio n Not available Not available Not available 12/16/2017 50125 2004 SNBEBO [place], [place] - [facility] 8 11:58:35 222664 ciproflox acin medicatio n Not available Not available Not available 12/16/2017 2551 RxNorm BEBO [place], [place] [facility] 8 11:58:48 665226 Azactam medicatio n Not available Not available Not available 12/16/201747194 1 RxNorm [place]BO [place], [place] [facility] 8 11:58:56 711506 aztreonam medicatio n Not available Not available Not available 12/16/2017 1272 RxNorm [place]BO [place], [place] [facility] 8 11:59:03 087636 octreotid e Not available Not available Not available Not available 12/16/2017 7617 RxNorm [place]BO [place] [facility] 8 11:59:10 435318 duloxetin e medicatio n Not available Not available Not available 12/16/2017 58152 RxNorm [place]BO [place], [place] [facility] 8 11:59:19 495753 oxycodone medicatio n other Not available Not available 03/19/2021 7804 RxNorm AMY Mane Mathur [place], [place] - [facility] 16:02:30 Medications Name Sig Start [...] TABLET BY MOUTH 3 TIMES A DAY 12/26/ 2024 active Not Available Not Available Not Avai [...] completed Not Available Not Available Not Available [employer] Ultra Test strips USE FOR TESTING BEFORE [...] Updated DateTime 4 171.45 cm 34.3 kg/m2 619933. 51 g 98 % 98 % 92 /min 117 mm[Hg] 78 mm[Hg] Karina Alvarez [place] - [facility] 4 10:58:53 Date Recorded Body height Body mass index (BMI) Body weight Oxygen saturation Oxygen saturation in Arterial blood by Pulse oximetry Heart rate Systolic blood pressure Diastolic blood pressure Provider Name and Address Organization Details Last Updated DateTime 4 171.45 cm 34.6 kg/m2 810728. 69 g 96 % 96 % 108 /min 121 mm[Hg] 81 mm[Hg] Karina [place] [facility] 4 11:08:58 Date Recorded Body height Body mass index (BMI) Body weight Oxygen saturation Oxygen saturation in Arterial blood by Pulse oximetry Heart rate Systolic blood pressure Diastolic blood pressure Provider Name and Address Organization Details Last Updated DateTime 4 171.45 cm 34.9 kg/m2 617559. 28 g 95 % 95 % 94 /min 139 mm[Hg] 80 mm[Hg] Karina Alvarez MA [facility] 4 14:55:26 Date Recorded Body height Body mass index (BMI) Body weight Oxygen saturation Oxygen saturation in Arterial blood by Pulse oximetry Heart rate Systolic blood pressure Diastolic blood pressure Provider Name and Address Organization Details Last Updated DateTime 4 171.45 cm 35 kg/m2 805302. 47 g 97 % 97 % 97 /min 128 mm[Hg] 81 mm[Hg] Karina Alvarez MA [facility] 4 10:54:27 Date Recorded Body height Body mass index (BMI) Body weight Oxygen saturation Oxygen saturation in Arterial blood by Pulse oximetry Heart rate Systolic blood pressure Diastolic blood pressure Provider Name and Address Organization Details Last Updated DateTime 4 171.45 cm 34.5 kg/m2 876337. 9 g 95 % 95 % 102 /min 149 mm[Hg] 91 mm[Hg] Karina Alvarez MA [facility] 4 10:09:39 Social History Question Answer Notes LastModified by Organizat ion Details LastModified Time Tobacco Smoking Status Former Smoker Julia Guerrier MA [facility] 12/16/2017 12:02:47 What Is Your Level Of [...] Anxious, Or Unable To Sleep At Night)? [id number] [email or web address] Information not available 08/21/2021 Do You [...] Skin Problems N Anemia N Heart Attack ([place]) N Diabetes Y Seizures/Epilepsy N Asthma N Allergies Y Hepatitis N Heart Failure N Osteoporosis N Immunizations Vaccine Type Date Status Note Provider Nam e and Address Organization Details Recorded Time COVID-19, mRNA, LNP-S, PF, 30 mcg/0.3 mL dose 12/08/2020 completed Not Available [facility] 4 10:49:05 COVID-19, mRNA, LNP-S, PF, 30 mcg/0.3 mL dose 12/29/2020 completed Not Available [facility] 4 10:49:05 Hep A-Hep B 09/10/2015 completed BEBO [place], [place] - [facility] 07/20/2023 09:11:13 Past Encounters Encounter ID Performer Location Encounter Start Date Encounter Closed Date Diagnosis/Indication Diagnosis SNOMED-CT Code Diagnosis ICD10 Code Diagnosis Note [id number] Julia Guerrier MA [facility] [address] [place] [address] 12/16/2017 11:36:06 12/16/2017 12:52:59 Nonalcoholic steatohepatitis 772740837 K75.81 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 530964042 I85.10 Type 2 obdulio betes mellitus 66699165 E11.9 [id number] TOM Kunz [address] [place] [address] 12/23/2017 11:30:06 12/23/2017 12:45:09 Diabetes mellitus 49662546 E11.69 Cholecystitis 48749741 K 80.01 End stage liver disease 457371820 K72.[id number] [facility] [address] [place] [address] 02/11/2018 15:41:09 02/11/2018 16:48:42 Generalized anxiety disorder 20394284 F41.1 Uncontroll ed type 2 diabetes mellitus 345931244 E11.65 [id number] Janeth Pavon PA-C [facility] [address] [place] [address] 03/02/2018 15:31:55 03/02/2018 16:08:34 End stage liver disease 147576367 K72.00 Uncontroll ed type 2 diabetes mellitus 655775138 E11.65 [id number] Janeth Pavon PA-C [facility] [address] [place] [address] 05/13/2018 15:37:41 05/13/2018 17:17:50 End stage liver disease 911818781 K72.[id number] [facility] [address] [place] [address] 05/25/2018 11:13:32 05/25/2018 11:43:34 End stage liver disease 916773257 K72.00 Dyspnea on exertion 6084 5006 R06.09 Tachycardia 2575749 R00. 0 On examina tion - deep seated pustules 712128674 L08.[id number] [facility] [address] [place] [address] 06/14/2018 10:19:40 06/14/2018 11:01:20 Diabetes mellitus 75650122 E11.69 End stage liver disease 038917290 K72.00 Lumbar radiculopathy 128 357725 M54.16 [id number] Janeth Pavon PA-C [facility] [address] [place] [address] 02/09/2019 14:30:46 02/09/2019 15:35:07 Diabetes mellitus 69708000 E11.69 Increased frequency of urination 365548981 R35.0 [id number] Janeth Pavon PA-C [facility] [address] [place] [address] 03/22/2019 15:44:00 03/22/2019 17:48:00 Anemia due to chronic blood loss 430952608 D50.0 Nonalcohol ic steatohepatitis 491875735 K75.81 Type 2 obdulio betes mellitus without complication 301212036 E11.9 Low back pain 216193940 M54.5 Increased frequency of urination 006107867 R35.0 Hepatic encephalopathy 23321082 K72.90 [id number] Janeth Pavon PA-C [facility] [address] [place] [address] 08/01/2019 11:23:53 08/01/2019 12:28:44 Cirrhosis of liver 47967947 K74.69 [id number] Janeth Pavon PA-C [facility] [address] [place] [address] 08/17/2019 09:24:17 08/24/2019 11:34:51 Diabetes mellitus 00578510 E11.69 Lumbar radiculopathy 128 565532 M54.16 [id number] Janeth Pavon PA-C [facility] [address] [place] [address] 08/31/2019 14:50:58 09/02/2019 14:48:06 Acute bronchitis with bronchospasm 76886002 J20.9 [id number] Janeth Pavon PA-C [facility] [address] [place] [address] 12/19/2019 09:34:48 12/19/2019 15:21:39 [id number] Janeth Pavon PA-C [facility] [address] [place] [address] 12/23/2019 09:37:23 12/23/2019 15:52:54 Diabetes mellitus 25657588 E11.69 Obstructiv e sleep apnea syndrome 00957482 G47.33 End stage liver disease 007429876 K72.00 Thoracic back pain 66930 8004 M54.6 [id number] Janeth Pavon PA-C [facility] [address] [place] [address] 01/25/2020 09:34:10 01/25/2020 15:21:39 Lumbar radiculopathy 862042353 M54.16 [id number] Janeth Pavon PA-C [facility] [address] [place] [address] 02/23/2020 09:42:16 02/23/2020 16:52:05 Diabetes mellitus 35470876 E11.69 Renal mass 090261948 N28 .89 Neoplasm of kidney 40904 0001 D49.158 [id number] Janeth Pavon PA-C [facility] [address] [place] [address] 06/13/2020 11:39:18 06/14/2020 10:53:35 Nonalcoholic steatohepatitis 164607189 K75.81 Uncontroll ed type 2 diabetes mellitus 891696053 E11.65 [id number] Janeth Pavon PA-C [facility] [address] [place] [address] 07/25/2020 11:21:27 07/25/2020 14:13:47 Long-term drug therapy 543964201 Z79.899 Gastroesop hageal reflux disease without esophagitis 162768777 K21.9 Hematochezia 312673099 K 92.1 Nausea and vomiting 1693 1999 R11.2 Pityriasis rosea 4173241 4 L42 Type 2 obdulio betes mellitus 27996651 E11.9 [id number] Janeth Pavon PA-C [facility] [address] [place] [address] 07/27/2020 10:05:37 07/31/2020 10:18:42 Uncontrolled type 2 diabetes mellitus 333499184 E11.65 [id number] Janeth Pavon PA-C [facility] [address] [place] [address] 2020 11:20:02 09/08/2020 12:42:46 Tinea corporis 94545038 B35.4 Abscess 555585069 L02.91 [id number] Janeth Pavon PA-C [facility] [address] [place] [address] 11/16/2020 10:47:40 11/16/2020 11:46:55 Exanthem due to herpes zoster 928420564 B02.8 [id number] Janeth Pavon PA-C [facility] [address] [place] [address] 06/26/2021 15:54:46 06/26/2021 17:00:08 Long-term drug therapy 020159846 Z79.899 Low back pain 222803867 M54.51 Body mass index 30+ - obesity 559069723 Z68.39 Screening for malignant neoplasm of prostate 829352203 Z12.5 [id number] Janeth Pavon PA-C [facility] [address] [place] [address] 08/21/2021 11:08:46 08/21/2021 12:35:42 Adult health examination 678190027 Z00.00 Backache 697189840 M54.9 [id number] Janeth Pavon PA-C [facility] [address] [place] [address] 11/15/2021 15:33:53 11/18/2021 10:03:54 Hyperglycemia due to type 2 diabetes mellitus 5694583923 04823 E11.65 Type 2 obdulio betes mellitus 79078261 E11.9 Morbid obesity 392347073 E66.01 End stage liver disease 333932759 K72.00 [id number] Janeth Pavon PA-C [facility] [address] [place] [address] 05/28/2022 16:19:55 05/28/2022 17:17:07 Uncontrolled type 2 diabetes mellitus 932288313 E11.65 Chronic back pain 620380 002 M54.05 Overweight 261460104 E66 .3 Urinary incontinence 165 854550 R32 Generalize d anxiety disorder 27623036 F41.1 Backache 986074507 M54.9 [id number] TOM Kunz [address] [place] [address] 10/27/2022 14:34:16 10/28/2022 10:40:36 Long-term drug therapy 683979497 Z79.899 Lumbar radiculopathy 128 363167 M54.16 Persistent cough 3038370 02 R05.3 Daytime somnolence 47974 21022 00 R40.0 Type 2 obdulio betes mellitus 87240206 E11.9 Iron defic iency anemia 08406132 D50.8 [id number] Janeth Pavon PA-C [facility] [address] [place] [address] 12/29/2022 15:17:34 12/30/2022 09:55:18 Lumbar radiculopathy 705680837 M54.16 Overweight 934874792 E66 .3 [id number] Janeth Pavon PA-C [facility] [address] [place] [address] 02/24/2023 18:01:59 03/02/2023 15:11:10 Persistent cough 570879070 R05.3 Essential hypertension 24490153 I10 Overweight 869396683 E66 .3 [id number] Janeth Pavon PA-C [facility] [address] [place] [address] 05/14/2023 11:38:36 05/15/2023 11:58:34 Type 2 diabetes mellitus 65759969 E11.9 Mixed anxi ety and depressive disorder 719427817 F41.8 Overweight 233384223 E66 .3 [id number] Janeth Pavon PA-C [facility] [address] [place] [address] 06/04/2023 10:52:25 06/09/2023 14:14:44 Abdominal pain 69950099 R10.13 Cirrhosis of liver 007 K74.69 Overweight 997235404 E66 .3 [id number] Janeth Pavon PA-C [facility] [address] [place] [address] 07/02/2023 12:08:49 07/03/2023 11:31:17 Type 2 diabetes mellitus 32650361 E11.9 Atypical chest pain 1025 80045 R07.89 Overweight 394932848 E66 .3 [id number] Janeth Pavon PA-C [facility] [address] [place] [address] 08/05/2023 15:58:27 08/21/2023 14:53:44 Uncontrolled type 2 diabetes mellitus 215711721 E11.65 Overweight 706004417 E66 .3 [id number] Janeth Pavon PA-C [facility] [address] [place] [address] 08/13/2023 14:55:22 08/20/2023 15:19:06 Lumbar radiculopathy 682333065 M54.16 [id number] ALCON VARGAS-OMAIRA [facility] [address] [place] [address] 09/17/2023 08:59:31 09/18/2023 13:42:26 Atopic dermatitis 98085876 L20.9 -Patient presentati on consistent with atopic dermatitis .-Patient reports rash has improved with triamcinol one use. Patient to continue triamcinol one for another 7 days BID PRN.-POSTIE ordering eucerin lotion for patient to use daily PRN.-POSTIE provided atopic dermatitis care instructio ns. Type 2 obdulio betes mellitus 61490449 E11.21 -Uncontrol led.-Last A1c: 12 (05/14/23)- Continue current therapy-Jamie werner would like referral to another endocrinol ogist and nutritioni . POSTIE to place orders.-POSTIE discussed diet and lifestyle changes with the patient at length. POSTIE provided numerous diabetes care instructio ns and discussed with the patient.-R ecommended diabetic diet-Educa manny to check feet daily [id number] Amanda Amin MA [facility] [address] [place] [address] 10/16/2023 11:23:31 10/17/2023 06:49:47 Long-term drug therapy 754109057 Z79.899 Diabetes mellitus 407323 09 E11.69 Overweight 698398883 E66 .3 [id number] Janeth Pavon PA-C [facility] [address] [place] [address] 01/14/2024 09:33:39 01/19/2024 12:05:45 Long-term drug therapy 763053190 Z79.899 Type 2 obdulio betes mellitus 33282743 E11.9 Uncontroll ed type 2 diabetes mellitus 435039497 E11.65 ER now Overweight 448065140 E66 .3 [id number] Janeth Pavon PA-C [facility] [address] [place] [address] 01/26/2024 10:49:29 02/03/2024 14:35:51 Cirrhosis of liver 21436269 K74.69 Type 2 obdulio betes mellitus 13147113 E11.9 Adult heal th examination 931313997 Z00.00 Overweight 120642977 E66 .3 [id number] Janeth Pavon PA-C [facility] [address] [place] [address] 03/03/2024 10:44:06 03/04/2024 13:36:40 Chronic low back pain 721200355 M54.59 Morbid obesity 439381803 E66.01 [id number] Janeth Pavon PA-C [facility] [address] [place] [address] 03/08/2024 14:46:39 03/09/2024 16:00:13 Seizure 40946552 G40.89 Uncontroll ed type 2 diabetes mellitus 685152421 E11.65 Dissociati ve convulsions 771620472 F44.5 Overweight 819268308 E66 .3 [id number] Janeth Pavon PA-C [facility] [address] [place] [address] 03/23/2024 10:36:19 03/28/2024 10:16:17 Lumbar radiculopathy 894684256 M54.16 Uncontroll ed type 2 diabetes mellitus 978966243 E11.65 Overweight 789331355 E66 .3 [id number] Janeth Pavon PA-C [facility] [address] [place] [address] 04/06/2024 09:53:53 04/06/2024 16:23:24 Dysuria 27180003 R30.0 Uncontroll ed type 2 diabetes mellitus 608306807 E11.65 Generalize d anxiety disorder 21882885 F41.1 Overweight 913224428 E66 .3 Health Concerns Section Related Observation [...] 2020 (MEDICAID REPLACEMENT - HMO) Camilo Curry [id number] Camilo Curry 03/03/2024 1 [employer] [employer] - [place] ON OR AFTER 2020 (MEDICAID REPLACEMENT - HMO) Camilo Curry [id number] Camilo Curry 03/08/2024 1 [employer] [place] AFTER 2020 (MEDICAID REPLACEMENT - HMO) Camilo Curry [id number] Camilo Curry 03/23/2024 1 [employer] [place] AFTER 2020 (MEDICAID REPLACEMENT - HMO) Camilo Curry [id number] Camilo Curry 04/06/2024 1 [employer] [place] ([place] REPLACEMENT - HMO) Camilo Curry [id number] Camilo Crury Notes Date Note Type Note Provider Name and Address Organization Details Recorded Time 01/26/2024 text/html has been to ER twice over his liver...has to have a 1.5 MRI for his liver and a clot in his shunt...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 [facility]...needs referral to another Janeth Pavon PA-C Attn: Accounting,[address] [facility], [place], [address], [facility] 01/26/2024 11:31:17 03/03/2024 text/html patient has chronic low back pain and wants a brace in order to facilitate ADL such as standing ambulating and hygiene and meal prep Janeth Pavon PA-C Attn: Accounting,[address] [facility], [place], [address], [facility] 03/03/2024 11:28:09 03/08/2024 text/html first time seizu re christopher night..says approx an hour?...was found in yard..refused EMS..cant get into psych until end of april...no xanax for over a month...reports BS was off meter high..reports no post ictal Janeth Pavon PA-C Attn: Accounting, 1 [facility], [place], [address], [facility] 03/08/2024 15:28:41 03/23/2024 text/html injured his lowe r back moving furniture...needs MRI...xray and CT spine were negative...phys therapy was ineffective...was just in ER Janeth Pavon PA-C Attn: Accounting, 1 [facility], [place], [address], [facility] 03/23/2024 11:18:37 04/06/2024 text/html has burning urination for a week... every hour frequency...says he has been drinking nikhil justice vs nausea...also needs something for sedation for MRI Janeth Pavon PA-C Attn: Accounting, 1 [facility], [place], [address], [facility] 04/06/2024 10:29:01
--- OUTSIDE RECORDS SUMMARY | 2024-05-08 06:14 | XMS_ITS | Continuity of Care Document ---
Author Organization Shakira HORNE [facility] Address [address] [place] [address] Care Team Providers Care It Support Technician Name Role Phone JANETH PAVON Primary Care Provider [phone] Assessment No assessment recorded. Plan of Treatment Reminders Order Date Submit Date Provider Last Modified By Organization Details Last Modified Time Details Appointments None record ed. Lab None record ed. Referral None record ed. Procedures None record ed. Surgeries None record ed. Imaging None record ed. Medication Orders None record ed. Patient TargetsNo targets recorded. Patient Instructions Encounter Date Encounter Id Patient Instructions Last Modified By Organization Details Last Modified Time 03/03/2024 [id number] A healthy lifestyle: care instructions jnanney Not available 03/03/2024 11:27:32 Reason for Referral None Reported. Results Created Date Observation Date Name Description Value Unit Range Abnormal Flag Note LastModifiedBy Organization Detail LastModifiedTime 02/24/20 24 02/23/2024 XR, abdom en No observ ation record ed. dturnerma [facility] [address] [place], [address], 02/24/2024 08:59:19 04/17/20 24 04/16/2024 MRI, lumba r spine , w/o contr ast No observ ation record ed. MICKEY [facility] [address] [place], [address], 04/18/2024 12:31:37 Result Notes None recorded. Problems Name Problem SNOMED Code Status Onset Date Resolution Date Notes Provider Name and Address Organization Details Recorded Time Diabetes mellitus 14505247 Active 2018 [facility] [place], [place] [facility] 1 10:51:15 Liver finding 765070657 Active 2018 [facility] [place] [facility] 1 10:51:15 Hyperglycem ia due to type 2 diabetes mellitus 3162369718226 09 Active [facility] [place] [facility] 4 09:09:59 Type 2 diabetes mellitus in obese 17275201 Active [facility] [place] [facility] 1 10:51:15 Bacteremia 5274298 Active [facility] [place] [facility] 1 10:51:15 Gastroesoph ageal reflux disease 345726183 Active [facility] [place] [facility] 10:51:15 Abscess 556308701 Active [facility] [place] [facility] 1 10:51:15 Backache 078730659 Active [facility] [place] [facility] 1 10:51:15 Hepatic failure 48185554 Active [facility] [place] [facility] 1 10:51:15 Problem Notes None recorded. Procedures [...] Name and Address Organization Details Recorded Time 558693 Medicinal product containin g penicilli n and acting as antibacte rial agent (product) medicatio n Not available Not available Not available 12/16/2017 82947 05 SNOMED [facility] [place] [facility] 8 11:58:06 020840 Substance with sulfonami de structure and antibacte rial mechanism of action (substanc e) medicatio n Not available Not available Not available 12/16/2017 57323 8003 SNOMED [facility] [place] [facility] 8 11:58:12 886824 Nexium medicatio n Not available Not available Not available 12/16/2017 87167 9 RxNorm [facility] [place], [place] [facility] 8 11:58:19 470302 erythromy roxana medicatio n Not available Not available Not available 12/16/2017 4053 RxNorm [facility] [place] [facility] 8 11:58:25 204273 Iodinated contrast media (substanc e) medicatio n Not available Not available Not available 12/16/2017 59587 2004 SNOMED [facility] [place] [facility] 8 11:58:35 396059 ciproflox acin medicatio n Not available Not available Not available 12/16/2017 2551 RxNorm [facility] [place] [facility] 8 11:58:48 574931 Azactam medicatio n Not available Not available Not available 12/16/2017 82822 1 RxNorm [facility] [place] [facility] 8 11:58:56 161709 aztreonam medicatio n Not available Not available Not available 12/16/2017 1272 RxNorm [facility] [place] [facility] 8 11:59:03 273184 octreotid e Not available Not available Not available Not available 12/16/2017 7617 RxNorm [facility] [place] [facility] 8 11:59:10 443386 duloxetin e medicatio n Not available Not available Not available 12/16/2017 61540 RxNorm [facility] [place] [facility] 8 11:59:19 963402 oxycodone medicatio n other Not available Not available 03/19/2021 7804 RxNorm CEDRICKA Mane DesouzaBEBO [place], [place] [facility] 1 16:02:30 Medications Name Sig Start Date Stop [...] completed Not Available Not Available Not Available [employer] Ultra Test strips USE FOR TESTING BEFORE [...] Updated DateTime 4 171.45 cm 34.6 kg/m2 728813. 69 g 96 % 96 % 108 /min 121 mm[Hg] 81 mm[Hg] Karina Alvarez MA [place] 4 11:08:58 Social History Question Answer Notes LastModified by Organizat ion Details LastModified Time Tobacco Smoking Status Former Smoker Julia Guerrier MA null, [place] [facility] 12/16/2017 12:02:47 What Is Your [...] Anxious, Or Unable To Sleep At Night)? [id number] [email or web address] Information not available 08/21/2021 Do You [...] Reflux (GERD) N Cancer N Stroke N Headaches Y Kidney or Bladder Problems N Skin Problems N Asthma N Allergies Y Hepatitis N High Cholesterol N Liver Disease Y Thyroid Problems N GI Problems Y Anemia N Heart Attack ([place]) N Diabetes Y Seizures/Epilepsy N Osteoporosis N Heart Failure N Immunizations Vaccine Type Date Status Note Provider Nam e and Address Organization Details Recorded Time COVID-19, mRNA, LNP-S, PF, 30 mcg/0.3 mL dose 12/08/2020 completed Not Available [facility] 4 10:49:05 COVID-19, mRNA, LNP-S, PF, 30 mcg/0.3 mL dose 12/29/2020 completed Not Available [facility] 4 10:49:05 Hep A-Hep B 09/10/2015 completed Amanda Amin MA [facility], [place] - [facility] 07/20/2023 09:11:13 Past Encounters Encounter ID Performer Location Encounter Start Date Encounter Closed Date Diagnosis/Indication Diagnosis SNOMED-CT Code Diagnosis ICD10 Code [id number] Janeth Pavon PA-C [facility] [address] [place] [address] 03/03/2024 10:44:06 03/04/2024 13:36:40 Chronic low back pain 109730728 M54.59 Morbid obesity 426063711 E66.01 Health Concerns Section Related Observation LastModified by Organization Detai ls LastModified Time None Recorded Concern Status LastModified by Organization Details LastModified Time None Recorded Payers Encounter Date Sequence Insurance Name Policy Number Policy Cordero Covered Member ID Cordero Member ID Guarantor Name 03/03/2024 1 [employer] [place] N[place] DOS ON OR AFTER 2020 (MEDICAID REPLACEMENT - HMO) Camilo Curry [id number] Camilo Curry Notes Date Note Type Note Provider Name and Address Organization Details Recorded Time 03/03/2024 text/html patient has chronic low back pain and wants a brace in order to facilitate ADL such as standing ambulating and hygiene and meal prep Janeth Pavon PA-C Attn: Accounting,[address] [place], [address], [place] [facility] 03/03/2024 11:28:09
--- OUTSIDE RECORDS SUMMARY | 2024-05-08 06:14 | XMS_ITS | Continuity of Care Document ---
Author Organization [facility] Address [address] [place] [address] Care Team Providers Care Postmaster Name Role Phone JANETH PAVON Primary Care [...] Modified By Organization Details Last Modified Time 03/08/2024 [id number] A healthy lifestyle: care instructions jnanney Not available 03/08/2024 15:26:42 type 2 diabetes: care instructions jnanney Not available 03/08/2024 15:26:42 Reason for Referral None Reported. Results Created Date Observation Date Name Description Value Unit Range Abnormal Flag Note LastModifiedBy Organization Detail LastModifiedTime 02/24/20 24 02/23/2024 XR, abdom en No observ ation [facility] [address] [place], [address], 02/24/2024 08:59:19 04/17/20 24 04/16/2024 MRI, lumba r spine , w/o contr ast No observ ation record ed. [facility] [address] [place], [address], 04/18/2024 12:31:37 Result Notes None recorded. Problems Name Problem SNOMED Code Status Onset Date Resolution Date Notes Provider Name and Address Organization Details Recorded Time Diabetes mellitus 87775946 Active 2018 [facility] [place], [place] [facility] 1 10:51:15 Liver finding 280643370 Active 2018 [facility] [place] [facility] 1 10:51:15 Hyperglycem ia due to type 2 diabetes mellitus 3204337923993 09 Active [facility] [place] [facility] 4 09:09:59 Type 2 diabetes mellitus in obese 08485161 Active [facility] [place] [facility] 1 10:51:15 Bacteremia 4093566 Active [facility] [place] [facility] 10:51:15 Gastroesoph ageal reflux disease 185853271 Active [facility] [place] [facility] 1 10:51:15 Abscess 500104275 Active [facility] [place] [facility] 10:51:15 Backache 609882083 Active [facility] [place] [facility] 1 10:51:15 Hepatic failure 88509473 Active [facility] [place] [facility] 10:51:15 [...] Name and Address Organization Details Recorded Time 952156 Medicinal product containin g penicilli n and acting as antibacte rial agent (product) medicatio n Not available Not available Not available 12/16/2017 31414 05 SNOMED [facility] [place] [facility] 8 11:58:06 469381 Substance with sulfonami de structure and antibacte rial mechanism of action (substanc e) medicatio n Not available Not available Not available 12/16/2017 08197 8003 SNOMED [facility] [place], [facility] 8 11:58:12 335255 Nexium medicatio n Not available Not available Not available 12/16/2017 60834 9 RxNoBEBO [place], [facility] 8 11:58:19 967122 erythromy roxana medicatio n Not available Not available Not available 12/16/2017 4053 RxNorm [facility] [place], [facility] 8 11:58:25 772211 Iodinated contrast media (substanc e) medicatio n Not available Not available Not available 12/16/2017 81422 2004 SNOMED [facility] [place], [facility] 8 11:58:35 725159 ciproflox acin medicatio n Not available Not available Not available 12/16/2017 2551 RxNorm [facility] [place], [facility] 8 11:58:48 720589 Azactam medicatio n Not available Not available Not available 12/16/2017 42617 1 RxNorm [facility] [place], [facility] 8 11:58:56 032972 aztreonam medicatio n Not available Not available Not available 12/16/2017 1272 RxNorm [facility] [place], [facility] 8 11:59:03 267139 octreotid e Not available Not available Not available Not available 12/16/2017 7617 RxNorm [facility] [place], [facility] 8 11:59:10 829498 duloxetin e medicatio n Not available Not available Not available 12/16/2017 58583 RxNorm [facility] [place], [facility] 8 11:59:19 252284 oxycodone medicatio n other Not available Not available 03/19/2021 7804 RxNorm AMY AminBEBO, [facility] 1 16:02:30 Medications Name Sig Start Date [...] completed Not Available Not Available Not Available [employer] [place] [employer] Ultra Test strips USE FOR TESTING BEFORE [...] Updated DateTime 4 171.45 cm 34.9 kg/m2 931264. 28 g 95 % 95 % 94 /min 139 mm[Hg] 80 mm[Hg] Karina Alvarez MA [facility] 4 14:55:26 Social History Question Answer Notes LastModified by Organizat ion Details LastModified Time Tobacco Smoking Status Former Smoker Julia Guerrier MA null, [facility] 12/16/2017 12:02:47 What Is Your Level Of [...] Anxious, Or Unable To Sleep At Night)? [id number] [email or web address] Information not available 08/21/2021 Do You [...] Skin Problems N Anemia N Heart Attack ([place]) N Diabetes Y Anxiety Disorder Y Muscle, [...] mcg/0.3 mL dose 12/08/2020 completed Not Available [facility] 4 10:49:05 COVID-19, mRNA, LNP-S, PF, 30 mcg/0.3 mL dose 12/29/2020 completed Not Available [facility] 4 10:49:05 Hep A-Hep B 09/10/2015 completed [facility] [place] [facility] 07/20/2023 09:11:13 Past Encounters Encounter ID Performer Location Encounter Start Date Encounter Closed Date Diagnosis/Indication Diagnosis SNOMED-CT Code Diagnosis ICD10 Code Diagnosis Note [id number] Janeth Pavon PA-C [facility] [address] [place] [address] 03/03/2024 10:44:06 03/04/2024 13:36:40 Chronic low back pain 712703420 M54.59 Morbid obesity 554238454 E66.01 [id number] Janeth Pavon PA-C [facility] [address] [place] [address] 03/08/2024 14:46:39 03/09/2024 16:00:13 Seizure 36027255 G40.89 Uncontroll ed type 2 diabetes mellitus 505571909 E11.65 Dissociati ve convulsions 230632119 F44.5 Overweight 983160386 E66 .3 Health Concerns Section Related Observation LastModified by Organization Detai ls LastModified Time None Recorded Concern Status LastModified by Organization Details LastModified Time None Recorded Payers Encounter Date Sequence Insurance Name Policy Number Policy Cordero Covered Member ID Cordero Member ID Guarantor Name 03/08/2024 1 [employer] [place] - [place] ON [place] AFTER 2020 (MEDICAID REPLACEMENT - HMO) Camilo Curry [id number] Camilo Curry Notes Date Note Type Note Provider Name and Address Organization Details Recorded Time 03/08/2024 text/html first time seizure thursday night..says approx an hour?...was found in yard..refused EMS..cant get into psych until end of april...no xanax for over a month...reports BS was off meter high..reports no post ictal Janeth Pavon PA-C Attn: Accounting,[address] [place], [address], [facility] - [facility] 03/08/2024 15:28:41
--- OUTSIDE RECORDS SUMMARY | 2024-05-08 06:51 | XMS_ITS | Encounter Summary ---
Author Organization [facility] Address [facility] [place] [address] Care Team Providers Care Afloat Cryptologic Manager Name Role Phone Nikolay Lancaster MD Primary Care Provider [phone] Reason for Visit * Reason Comments Refill Request Encounter Details Date Type Department Care Team (Late Contact Info) Description 01/11/2019 Refill [facility] [address] [place] [address] Fabiola Boyd MD [address] [place] [address] Refill Request Social History Tobacco Use Types [...] Description 02/17/2024 11:59 PM CDT Anesthesia Event [facility] MRI [address] [place] [address] Pushpa Frey DO [address] [phone] 05/20/2024 12:30 PM SENIOR NETWORK ENGINEER Appointment [facility] MRI [address] [place] [phone] Steve Bedolla MD [address] [place] [address] documented as of this encounter Visit Diagnoses Diagnosis 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
--- OUTSIDE RECORDS SUMMARY | 2024-05-08 06:51 | XMS_ITS | Encounter Summary ---
Author Organization [facility] Address [facility] [place] [address] Care Team Providers Care Brokerage Manager Name Role Phone Braydon Pavon Primary Care Provider [phone] Nikolay Lancaster MD Primary Care Provider [phone] Braydon Pavon Primary Care Provider [phone] Reason for Visit * Reason Onset Date Comments MEDICATION REFILL 09/08/2018 Encounter Details Date Type Department Care Team (Late Contact Info) Description 09/08/2018 Refill [facility] [address] [facility] [place] [address] Edmond Choi MD [address] [address] MEDICATION REFILL Social History Tobacco Use Types [...] Description 02/17/2024 11:59 PM CDT Anesthesia Event [facility] MRI [address] [place] [address] Pushpa Frey, DO [address] [facility] [address] [address] 05/20/2024 12:30 PM PRINTING TECHNICIAN Appointment [facility] MRI [address] [place] [address] Steve Bedolla MD [address] [place] [address] documented as of this encounter Visit Diagnoses Not on filedocumented in this encounter Care Teams Brokerage Manager Relationship Specialty Start Date End Date Braydon Pavon PA [address] [place] [address] PCP - General Physician Manager Brand 05/19/18 10/03/18 Nikolay Lancaster MD [address] [place] [address] PCP - General 10/04/18 07/13/23 Braydon Pavon PA [address] [place] [address] PCP - General Physician Manager Brand 07/14/23 documented as of this encounter
--- OUTSIDE RECORDS SUMMARY | 2024-05-08 06:51 | XMS_ITS | Encounter Summary ---
Author Organization [facility] Address [facility]3 [facility] [place] [address] Care Team Providers Care Process Mold Technician Name Role Phone Braydon Pavon Primary Care Provider [phone] Encounter Details Date Type Department Care Team [...] Description 02/17/2024 11:59 PM CDT Anesthesia Event [facility] MRI [address] [place] [address] Pushpa Frey DO [address] [facility] [address] [address] 05/20/2024 12:30 PM PLANT ASSIGNER Appointment [facility] MRI [address] [place] [address] Steve Beodlla MD [address] [place] [address] documented as of this encounter Goals Goal [...] on filedocumented in this encounter Care Teams Process Mold Technician Relationship Specialty Start Date End Date Braydon Pavon PA [address] [place] [address] PCP - General Physician Evaporator Supervisor 07/14/23 documented as of this encounter
--- OUTSIDE RECORDS SUMMARY | 2024-05-08 06:51 | XMS_ITS | Encounter Summary ---
Author Organization [facility] Address [facility] [place] [address] Care Team Providers Care Sprue Knocker Name Role Phone Braydon Pavon Primary Care Provider Reason for Referral * Radiology Services (Routine) - Closed Specialty Diagnoses / Procedures Referred By Contac t Referred To Contact Ultrasound Diagnoses Hepatic cirrhosis, unspecified hepatic cirrhosis type, unspecified whether ascites present (HCC) S/P TIPS (transjugular intrahepatic portosystemic shunt) Fatty liver Procedures US TIPS W ABDOMEN LIMITED Riddhi Bello [address] [place] [address] Referral ID Status Reason Start Date Expiration Date Visits Re quested Visits Authorized [id number] Closed 06/22/2023 06/21/2024 1 1 Reason for Visit * Radiology Services (Routine) - Closed Specialty Diagnoses / Procedures Referred By Contac t Referred To Contact Ultrasound Diagnoses Hepatic cirrhosis, unspecified hepatic cirrhosis type, unspecified whether ascites present (HCC) S/P TIPS (transjugular intrahepatic portosystemic shunt) Fatty liver Procedures US TIPS W ABDOMEN LIMITED Riddhi Bello [address] [place] [address] Referral ID Status Reason Start Date Expiration Date Visits Re quested Visits Authorized [id number] Closed 06/22/2023 06/21/2024 1 1 Encounter Details Date Type Department Care Team (Latest Contact Info) Description 07/24/2023 8:51 AM CDT - 07/24/2023 11:59 PM CDT Hospital Encounter [address] [address] Discharge Disposition: Home or Self Care Social [...] [facility] MRI [address] [place] [address] Pushpa Frey DO [address] [facility] [address] [phone] 05/20/2024 12:30 PM MARKET RESEARCH COORDINATOR Appointment [facility] MRI [address] [place] [phone] Steve Bedolla MD [address] [place] [address] documented as of this encounter Goals Goal [...] disease documented in this encounter Care Teams Sprue Knocker Relationship Specialty Start Date End Date Braydon Pavon PA [address] [place] [address] PCP - General Physician Safety Pin Assembling Machine Operator 07/14/23 documented as of this encounter
--- OUTSIDE RECORDS SUMMARY | 2024-05-08 06:51 | XMS_ITS | Encounter Summary ---
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) Social [...] [facility] [address] [place] [address] Pushpa Frey DO [address] [facility] [address] [address] 05/20/2024 12:30 PM DIGITAL PHOTOGRAPHIC PRINTER Appointment [facility] MRI [address] [place] [address] Steve Bedolla MD [address] [place] [address] documented as of this encounter Visit Diagnoses Diagnosis 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
--- OUTSIDE RECORDS SUMMARY | 2024-05-08 06:51 | XMS_ITS | Encounter Summary ---
Author Organization [facility] Address [facility] [place] [address] Care Team Providers Care Bindery Machine Setter/Set Up Operator Name Role Phone Braydon Pavon Primary Care Provider [phone] Reason for Visit * Reason Onset Date Comments MEDICATION REFILL 06/07/2018 Encounter Details Date Type Department Care Team (Late st Contact Info) Description 06/07/2018 Refill [facility] Endocrinology, Diabetes and Metabolism [address] [place] [address] [place] Choi MD [address] [address] MEDICATION REFILL Social History Tobacco Use Types [...] patient on file. Both called in to [facility] [phone] EL RN * Telephone Encounter - Mary Grace Paredes LPN - 06/07/2018 8:02 AM CST Different syringe type is needed for humulin RU 500 Please review and refill if appropriate EL RN documented in this encounter Plan of Treatment Upcoming Encounters Date Type Department Care Team (Late st Contact Info) Description 02/17/2024 11:59 PM CDT Anesthesia Event [facility] MRI [address] [place] [phone] Pushpa Frey, [address] [facility] [address] [phone] 05/20/2024 12:30 PM TRAVEL RN Appointment [facility] MRI [address] [place] [address] Steve Bedolla MD [address] [place] [address] documented as of this encounter Visit Diagnoses Not on filedocumented in this encounter Care Teams Bindery Machine Setter/Set Up Operator Relationship Specialty Start Date End Date Braydon Pavon PA [address] [place] [address] PCP - General Physician Stock Puller 05/19/18 10/03/18 documented as of this encounter
--- OUTSIDE RECORDS SUMMARY | 2024-05-08 06:51 | XMS_ITS | Encounter Summary ---
Author Organization [facility] Address [address] [place] [address] [place] [address] Care Team Providers Care Manager Ecommerce Name Role Phone Braydon Pavon Primary Care Provider Reason for Visit * Reason Onset Date Comments Follow-up 08/18/2023 Encounter Details Date Type Department Care Team (Late st Contact Info) Description 08/18/2023 Telephone [facility] - [address] [place] [address], [facility] [place] [address] Steve Bedolla MD [address] [place] [address] Follow-up Social History Tobacco Use Types [...] Description 02/17/2024 11:59 PM CDT Anesthesia Event [facility] MRI [address] [place] [address] Pushpa Frey, [address] [facility] DEPT OF ANES G[place] [address] [place] [address] 05/20/2024 12:30 PM PUBLIC ADDRESS ANNOUNCER Appointment [facility] MRI [address] [place] [address] Steve Bedolla MD [address] [place] [address] documented as of this encounter [...] on filedocumented in this encounter Care Teams Manager Ecommerce Relationship Specialty Start Date End Date Braydon Pavon PA [address] [place] [address] PCP - General Physician Dip Dyer 07/14/23 documented as of this encounter
--- OUTSIDE RECORDS SUMMARY | 2024-05-08 06:51 | XMS_ITS | Encounter Summary ---
Author Organization [facility] Address [address] [place], [place] [address]M[place] [address] Care Team Providers Care Asset Protection Professional Name Role Phone Braydon Pavon Primary Care Provider [phone] Reason for Visit * Reason Onset Date Comments Follow-up 11/19/2023 Encounter Details Date Type Department Care Team (Late Contact Info) Description 11/19/2023 Telephone [facility] - [address], [facility] [place] [address] Steve Bedolla MD [address] [place] [address] Follow-up Social History Tobacco Use Types [...] CE Patient needs to be contacted at [phone] documented in this encounter Plan of Treatment Upcoming Encounters Date Type Department Care Team (Late Contact Info) Description 02/17/2024 11:59 PM CDT Anesthesia Event [facility] MRI [address] [place] [address] Pushpa Frey DO [address] [phone] 05/20/2024 12:30 PM UNDERWRITING ACCOUNT REPRESENTATIVE Appointment [facility] MRI [address] [place] [address] Steve Bedolla MD [address] [place] [address] documented as of this encounter Goals Goal [...] on filedocumented in this encounter Care Teams Asset Protection Professional Relationship Specialty Start Date End Date Braydon Pavon PA [address] [place] [address] PCP - General Physician Emg Technician 07/14/23 documented as of this encounter
--- OUTSIDE RECORDS SUMMARY | 2024-05-08 06:51 | XMS_ITS | Encounter Summary ---
Author Organization [facility] Address [address] [place] [address]. [place] [address] [place] [address] Care Team Providers Care Ortho Rn Name Role Phone Braydon Pavon Primary Care Provider [phone] Encounter Details Date Type Department Care Team [...] st Contact Info) Description 05/10/2024 11:40 AM HEALTHCARE PROF Office Visit [facility] Medical Group Diabetes and Endocrinology - [place] [address] [place] [address] Eva Power MD [address] [place] [address] documented as of this encounter Visit Diagnoses Not on filedocumented in this encounter Care Teams Ortho Rn Relationship Specialty Start Date End Date Braydon Pavon PA [address] [place] [address] PCP - General PHYSICIAN TERMINAL COMPUTER OPERATOR 03/02/19 documented as of this encounter
--- OUTSIDE RECORDS SUMMARY | 2024-05-08 06:51 | XMS_ITS | Encounter Summary ---
Author Organization [facility] Address [facility]3 [facility] [place] [address] Care Team Providers Care Motor Setter Name Role Phone Braydon Pavon Primary Care Provider [phone] Encounter Details Date Type Department Care Team [...] 11:59 PM CDT Anesthesia Event [facility] MRI [address] [place] [address] Pushpa Frey DO [address] [facility] [address] [phone] 05/20/2024 12:30 PM FEEDER CATCHER Appointment [facility] MRI [address] [place] [address] Steve Bedolla MD [address] [place] [address] documented as of this encounter Goals Goal [...] filedocumented in this encounter Care Teams Motor Setter Relationship Specialty Start Date End Date Braydon Pavon PA [address] [place] [address] PCP - General Physician Dish Carrier 07/14/23 documented as of this encounter
--- OUTSIDE RECORDS SUMMARY | 2024-05-08 06:51 | XMS_ITS | Encounter Summary ---
Author Organization [facility] Address [facility]3 [facility] [place] [address] Care Team Providers Care Linter Tender Name Role Phone Braydon Pavon Primary Care Provider Reason for Visit * Auth/Cert (Routine) Specialty Diagnoses / Procedures Referred By Contac t Referred To Contact Diagnoses Cirrhosis of liver without ascites, unspecified hepatic cirrhosis type (HCC) Procedures MD ED EGD FLEX TRANSORAL DX EGD w/ agbim ESOPHAGOGASTRODUODENOSCOPY (EGD) DIAGNOSTIC Referral ID Status Reason Start Date Expiration Date Visits Re quested Visits Authorized [id number] 1 1 Encounter Details Date Type Department Care Team (Latest Contact Info) Description 02/12/2024 11:04 AM CDT - 02/12/2024 2:45 PM CDT Hospital Encounter [facility] [address] [place] [address] Steve Bedolla MD [address] [place] [address] Surgery General Discharge Disposition: Home or Self [...] ask them during your visits. ?? Copyright Thoof 2020 Information is for End User's use only and may not be sold, redistributed or otherwise used for commercial purposes. All illustrations and images included in CareNotes?? are the copyrighted property of [employer] or [facility] The above information is an scientific aide only. It is not intended as [...] file Social History Narrative Disabled. 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 [employer] Financial Resource Strain: Not on file Food [...] to engaging gainful employment for short or exterminator and even leading to permanent disability and/or [...] changes Gaby Mistry MD Gastroenterology & Hepatology [facility] documented in this encounter Plan of Treatment Upcoming Encounters Date Type Department Care Team (Late st Contact Info) Description 02/17/2024 11:59 PM CDT Anesthesia Event [facility] MRI [address] [place] [phone] Pushpa Frey DO [address] [facility] [address] [phone] 05/20/2024 12:30 PM BREAD AND PASTRY BAKER Appointment [facility] MRI [address] [place] [address] Steve Bedolla MD [address] [place] [address] documented as of this encounter Goals Goal [...] Procedure Name Priority Date/Time Associated Diagnosis Comments MD ED EGD FLEX TRANSORAL DX 02/12/2024 1:47 [...] Procedure Code(s): ? --- Professional --- ? 81124, Esophagogastroduo denoscopy, flexible, transoral; diagnostic, ? including collection of specimen(s) by brushing or washing, when ? performed (separate procedure) Diagnosis Code(s): ?--- Professional --- ?I85.00, Esophageal varices without bleeding ?K22.89, Other specified disease of esophagus ?K76.6, Portal hypertension ?K31.89, Other diseases of stomach and duodenum ?K31.7, Polyp of stomach and duodenum CPT copyright 2021 [employer]. All rights reserved. The codes documented in this report are preliminary and upon braille coder review may be revised to meet current compliance requirements. Gaby Mistry MD 02/12/2024 2:13:14 PM This report has been signed electronically. Note Initiated On: 02/12/2024 1:40 PM Number of Addenda: 0 ? [facility] ? [address] [place], [place] [address] [place] [address] PROVATION 02/12/2024 1:40 PM CDT Gaby Mistry MD GI PROCEDURE ORDERAB LES [facility] [employer] * (ABNORMAL) GLUCOSE - POINT OF CARE (02/12/2024 1:17 PM CDT) Glucose WB/POC 277(H) 70 - 115 mg/dL 02/12/2024 1:18 PM CDT [facility] Specimen Type Cap Fingerstick 2023 1:18 PM CDT [facility] Blood BLOOD SPECIMEN / Unknown 02/12/2024 1:17 PM CDT 02/12/2024 1:18 PM CDT Steve Bedolla MD LAB - POINT OF CARE ORDERABLES Performing Organization Address City/[facility]/ZIP Co de Phone Number [facility] [address] [place] [address], [facility] [phone] * (ABNORMAL) GLUCOSE - POINT OF CARE (02/12/2024 11:47 AM CDT) Glucose WB/POC 342(H) 70 - 115 mg/dL 02/12/2024 11:49 AM CDT [facility] Specimen Type Venous 02/12/2024 11:49 AM CDT [facility] Blood BLOOD SPECIMEN / Unknown 02/12/2024 11:47 AM CDT 02/12/2024 11:49 AM CDT Steve Bedolla MD LAB - POINT OF CARE ORDERABLES [address] [address], [facility] [phone] documented in this encounter Visit Diagnoses Not [...] RN) documented in this encounter Care Teams Linter Tender Relationship Specialty Start Date End Date Braydon Pavon PA [address] [place] [address] PCP - General Physician Donkey Engine Firer/Fireman 07/14/23 documented as of this encounter
--- OUTSIDE RECORDS SUMMARY | 2024-05-08 06:51 | XMS_ITS | Encounter Summary ---
Author Organization [facility] Address [facility] [place] [address] Care Team Providers Care Car Barn Laborer Name Role Phone Nikolay Lancaster MD Primary Care Provider [phone] Reason for Visit * Reason Onset Date Comments MEDICATION REFILL 12/08/2018 Encounter Details Date Type Department Care Team (Late Contact Info) Description 12/08/2018 Refill [facility] Endocrinology, Diabetes and Metabolism [address] [place] [address] [place] Choi MD [address] [address] MEDICATION REFILL Social History Tobacco Use Types [...] Description 02/17/2024 11:59 PM CDT Anesthesia Event [facility] MRI [address] [place] [address] Pushpa Frey, [address]691 [facility] [address] [phone] 05/20/2024 12:30 PM DONOR SERVICES COORDINATOR Appointment [facility] MRI [address] [place] [address] Steve Bedolla MD [address] [place] [address] documented as of this encounter Visit Diagnoses Not on filedocumented in this encounter Care Teams Car Barn Laborer Relationship Specialty Start Date End Date Nikolay Lancaster MD [address] [place] [address] PCP - General 10/04/18 07/13/23 documented as of this encounter
--- OUTSIDE RECORDS SUMMARY | 2024-05-08 06:51 | XMS_ITS | Encounter Summary ---
Author Organization [facility] Address [address] [place] [address]. [place] [address] [place] [address] Care Team Providers Care Clock And Watch Hands Painter Name Role Phone Braydon Pavon Primary Care Provider [phone] Encounter Details Date Type Department Care Team [...] st Contact Info) Description 05/10/2024 11:40 AM POWER HOUSE ENGINEER Office Visit [facility] Medical Group Diabetes and Endocrinology - [address] [address] Eva Power MD [address] [place] [address] documented as of this encounter Visit Diagnoses Not on filedocumented in this encounter Care Teams Clock And Watch Hands Painter Relationship Specialty Start Date End Date Braydon Pavon PA [address] [place] [address] PCP - General PHYSICIAN COIL REPAIR TECHNICIAN 03/02/19 documented as of this encounter
--- OUTSIDE RECORDS SUMMARY | 2024-05-08 06:51 | XMS_ITS | Encounter Summary ---
Author Organization [facility] Address [address] [place] [address] Care Team Providers Care Correctional Case Records Supervisor Name Role Phone Nikolay Lancaster MD Primary Care Provider [phone] Encounter Details Date Type Department Care Team (Late Contact Info) Description 07/27/2020 Orders Only [facility] - COVID Vaccine [address] [place] [phone] Neeraj Vyas MD [address] [place] [address] Need for vaccination Social History Tobacco Use [...] Description 02/17/2024 11:59 PM CDT Anesthesia Event [facility] MRI [address] [place] [address] Pushpa Frey DO 4931 [facility] [address] [phone] 05/20/2024 12:30 PM AIRCRAFT CABIN CLEANER Appointment [facility] MRI [address] [place] [address] Steve Bedolla MD [address] [place] [address] documented as of this encounter Visit Diagnoses Diagnosis Need for vaccination Need for prophylactic vaccination and inoculation against unspecified single disease documented in this encounter Care Teams Correctional Case Records Supervisor Relationship Specialty Start Date End Date Nikolay Lancaster MD [address] [place] [address] PCP - General 10/04/18 07/13/23 documented as of this encounter
--- OUTSIDE RECORDS SUMMARY | 2024-05-08 06:51 | XMS_ITS | Referral Summary ---
Author Organization [facility] Address [address] [facility] [place] [address] Care Team Providers Care Sleep Scientist Name Role Phone Braydon Pavon Primary Care Provider [phone] [facility],non-owned Affiliates and Associated Physician Practices is amultiple site organization consisting of ambulatory clinics and hospital sitesin [place], [place], [place] and [place]. This disclosure is being madepursuant to the Care Everywhere program and may not contain all information available regarding this patient. Last updated 18.[facility] Encounters Date Type Department Care Team Description 02/16/2024 Travel 02/12/2024 1:52 PM CDT Anesthesia Event [facility] [address] [place] [address] Papo Gamble MD Aranake-Chrisin ger, Amrita, MD 02/12/2024 Travel 02/12/2024 4:00 PM CDT - 02/12/2024 4:30 PM CDT Surgery [facility] [address] [place] [address] Gaby Mistry MD EGD w/ bill 02/12/2024 11:04 AM CDT - 02/12/2024 2:45 PM CDT Hospital Encounter [facility] OP [address] [place] [address] Steve Bedolla MD Surgery General Discharge Disposition: [...] CDT Anesthesia Event [facility] MRI [address] [place] [address] Pushpa Frey, DO [address] [facility] DEPT OF [address] [address] 05/20/2024 12:30 PM ACADEMIC SUPPORT COORDINATOR Appointment [facility] MRI [address] [place] [address] Steve Bedolla MD [address] [place] [address] Goals Goal Patient Goal Type [...] Procedure Name Priority Date/Time Associated Diagnosis Comments [place] EGD FLEX TRANSORAL DX 02/12/2024 1:47 PM CDT Cirrhosis of liver without ascites, unspecified hepatic cirrhosis type (HCC) Special Needs Message Received: Yesterday Steve Bedolla MD P [facility] Schedulers - Endoscopy Pool Please set up [...] Procedure Code(s): ? --- Professional --- ? 06875, Esophagogastroduo denoscopy, flexible, transoral; diagnostic, ? including collection of specimen(s) by brushing or washing, when ? performed (separate procedure) Diagnosis Code(s): ?--- Professional --- ?I85.00, Esophageal varices without bleeding ?K22.89, Other specified disease of esophagus ?K76.6, Portal hypertension ?K31.89, Other diseases of stomach and duodenum ?K31.7, Polyp of stomach and duodenum CPT copyright 2021 [place] [employer]. All rights reserved. The codes documented in this report are preliminary and upon conservation science officer review may be revised to meet current compliance requirements. Gaby Mistry MD 02/12/2024 2:13:14 PM This report has been signed electronically. Note Initiated On: 02/12/2024 1:40 PM Number of Addenda: 0 ? [facility] ? [address] [place] [address] [facility] 02/12/2024 1:40 PM CDT Gaby Mistry MD GI PROCEDURE ORDERAB LES Performing Organization Address City/[facility]/ZIP Co de Phone Number [facility] * (ABNORMAL) GLUCOSE - POINT OF CARE (02/12/2024 1:17 PM CDT) Only the most recent of2 resultswithin the time period is included. Pathologist [facility] Glucose WB/POC 277(H) 70 - 115 mg/dL 02/12/2024 1:[address] [facility] Specimen Type Cap Fingerstick 2023 1:[address] [facility] Blood BLOOD SPECIMEN / Unknown 02/12/2024 1:17 PM CDT 02/12/2024 1:18 PM CDT Steve Bedolla MD LAB - POINT OF CARE ORDERABLES Performing Organization Address [facility]/ZIP Co de Phone Number [facility] [address] [place] [address], [place] [phone] * (ABNORMAL) COMPREHENSIVE METABOLIC PANEL (12/29/2023 1:12 PM CDT) Pathologist [facility] BUN 13 7 - 26 mg/dL 12/29/2023 2:[address] [facility] Creatinine 0.73 0.71 - 1.16 mg/dL 12/29/2023 2:07 PM [facility] Sodium 138 136 - 145 mmol/L 12/29/2023 2:07 PM [facility] Potassium 4.8(H) 3.5 - 4.5 mmol/L 12/29/2023 2:07 PM [facility] Chloride 105 98 - 107 mmol/L 12/29/2023 2:07 PM [facility] CO2 25 22 - 29 mmol/L 12/29/2023 2:07 PM [facility] Glucose 362(H) 70 - 115 mg/dL 12/29/2023 2:07 PM [facility] Calcium 9.8 8.4 - 10.2 mg/dL 12/29/2023 2:07 PM [facility] Protein Total 7.0 6.0 - 8.3 g/dL 12/29/2023 2:07 PM [facility] Albumin 3.7 3.4 - 5.0 g/dL 12/29/2023 2:07 PM [facility] Bilirubin Total 3.2(H) 0.2 - 1.2 mg/dL 12/29/2023 2:07 PM [facility] Alkaline Phosphatase 89 40 - 150 U/L 12/29/2023 2:07 PM [facility] ALT 16 5 - 55 U/L 12/29/2023 2:07 PM [facility] AST 23 5 - 34 U/L 12/29/2023 2:07 PM [facility] Anion Gap 8 6 - 16 12/29/2023 2:07 PM [facility] BUN/Creatinine Ratio 18 7 - 23 12/29/2023 2:07 PM [facility] Osmolality Calculated 301(H) 275 - 295 mOsm/kg 12/29/2023 2:07 PM [facility] Albumin/Globulin Ratio 1.1 1.1 - 2.3 12/29/2023 2:07 PM [facility] eGFR by CKD-EPI >90 >=90 mL/min/1.7 3 m2 12/29/2023 2:07 PM [facility] Blood BLOOD SPECIMEN / Unknown Lab Venipuncture / Unknown 12/29/2023 1:12 PM CDT 12/29/2023 1:37 PM CDT Steve Bedolla MD LAB - CHEMISTRY LIONEL WH[facility] [address] [place] [address], [facility] [phone] * HEMOGLOBIN A1C - POINT OF CARE (AMB) [facility] (05/24/2018) [facility] Hemoglobin A1c POCT 8.2 BLOOD SPECIMEN / Unknown 05/24/2018 [place] Choi MD LAB - POINT OF CARE ORDERABLES from Last 3 Months or Most Recently Relevant to Health Maintenance Care Teams Sleep Scientist Relationship Specialty Start Date End Date Braydon Pavon PA [address] [place] [address] PCP - General Physician General Machine Operator 07/14/23
--- OUTSIDE RECORDS SUMMARY | 2024-05-08 06:51 | XMS_ITS | Encounter Summary ---
Author Organization [facility] Address [facility]3 [facility] [place] [address] Care Team Providers Care Attending Radiologist Name Role Phone Nikolay Lancaster MD Primary Care Provider [phone] Encounter Details Date Type Department Care Team (Latest Contact Info) Description 10/04/2018 7:55 PM CDT - 10/04/2018 11:59 PM T Hospital Encounter [facility] [address] [place] [address] Trice Blankenship, EQUIPMENT VALIDATION SPECIALIST-FIBER DESIGN ENGINEER [address] [place] [address] Discharge Disposition: Home or Self [...] Description 02/17/2024 11:59 PM CDT Anesthesia Event [address] [phone] Pushpa Frey DO [address] [facility] [address] [phone] 05/20/2024 12:30 PM FERRYBOAT PILOT Appointment [address] [place] [address] Steve Bedolla MD [address] [place] [address] documented as of this encounter Procedures Procedure Name Priority Date/Time Associated Diagnosis Comments CULTURE URINE Routine 10/04/2018 2:34 PM CDT Dysuria documented in this encounter Results * CULTURE URINE (10/04/2018 2:34 PM CDT) Culture Urine 10,000-50,000 CFU/mL urogenital jc JUANCARLOS 10/06/2018 10:31 AM CDT [facility] MICRO[facility]OLOGY Urine URINE SPECIMEN OBTAINED BY CLEAN CATCH PROCEDURE / Unknown Collection / Unknown 10/04/2018 2:34 PM CDT 10/04/2018 8:11 PM CDT Trice Blankenship APRN-FIBER DESIGN ENGINEER LAB - MICROBIOLO GY ORDERABLES [facility] MICRO[facility] [address] [place] [address] [phone] documented in this encounter Visit Diagnoses Diagnosis Dysuria- Primary documented in this encounter Care Teams Attending Radiologist Relationship Specialty Start Date End Date Nikolay Lancaster MD [address] [place] [address] PCP - General 10/04/18 07/13/23 documented as of this encounter
--- OUTSIDE RECORDS SUMMARY | 2024-05-08 06:51 | XMS_ITS | Encounter Summary ---
Author Organization [facility] Address [address] [facility] [address] Care Team Providers Care Checkerer Hand Name Role Phone Braydon Pavon Primary Care Provider [phone] Encounter Details Date Type Department Care Team (Late Contact Info) Description 09/09/2018 Orders Only [facility] Endocrinology, Diabetes and Metabolism [address] [place] [address] Edmond Choi MD [address] [place] [address] Social History Tobacco Use Types Packs/Day Years [...] Description 02/17/2024 11:59 PM CDT Anesthesia Event [facility] MRI 1201 [place] [phone] Pushpa Frey DO [address] [facility] [address] [phone] 05/20/2024 12:30 PM PLATE MOLDER Appointment [facility] MRI 1201 [place] [address] Steve Bedolla MD [address] [place] [address] documented as of this encounter Visit Diagnoses Not on filedocumented in this encounter Care Teams Checkerer Hand Relationship Specialty Start Date End Date Braydon Pavon PA [address] [place] [address] PCP - General Physician Bat Person 05/19/18 10/03/18 documented as of this encounter
--- OUTSIDE RECORDS SUMMARY | 2024-05-08 06:51 | XMS_ITS | Encounter Summary ---
Author Organization [facility] Address [facility] [place] [address] Care Team Providers Care Funeral Location Manager Name Role Phone Nikolay Lancaster MD Primary Care Provider [phone] Reason for Visit * Reason Onset Date Comments MEDICATION REFILL 10/08/2018 Encounter Details Date Type Department Care Team (Late Contact Info) Description 10/08/2018 Refill [facility] Endocrinology, Diabetes and Metabolism [address] [place] [address] Edmond Choi MD [address] [address] MEDICATION REFILL Social History Tobacco Use Types [...] CDT Anesthesia Event [facility] MRI 1201 [place] [phone] Pushpa Frey, 3691 [facility] [address] [phone] 05/20/2024 12:30 PM ENGINEERING 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 SPECIALIST Appointment [facility] MRI [address] [place] [phone] Steve Bedolla MD 1225 [place] [address] documented as of this encounter Visit Diagnoses Not on filedocumented in this encounter Care Teams Funeral Location Manager Relationship Specialty Start Date End Date Nikolay Lancaster MD [address] [place] [address] PCP - General 10/04/18 07/13/23 documented as of this encounter
--- OUTSIDE RECORDS SUMMARY | 2024-05-08 06:51 | XMS_ITS | Encounter Summary ---
Author Organization [facility] Address [address] [place], [place] [address] [address] Care Team Providers Care Surgery Scheduling Coordinator Name Role Phone Braydon Pavon Primary Care Provider [phone] Reason for Visit * Reason Onset Date Comments Refill Request 06/04/2018 Encounter Details Date Type Department Care Team (Late st Contact Info) Description 06/04/2018 Refill [facility] Endocrinology, Diabetes and Metabolism [address] [place] [address] Edmond Choi MD [address] [address] Refill Request Social History Tobacco Use Types [...] insurance. Please review and refill if appropriate. WRITER documented in this encounter Plan of Treatment Upcoming Encounters Date Type Department Care Team (Late st Contact Info) Description 02/17/2024 11:59 PM CDT Anesthesia Event [facility] MRI 1201 [place] [phone] Pushpa Frey DO 3[address] [facility] [address] [phone] 05/20/2024 12:30 PM COPY WRITER Appointment [facility] MRI [address] [place] [address] Steve Bedolla MD [address] [place] [address] documented as of this encounter Visit Diagnoses Not on filedocumented in this encounter Care Teams Surgery Scheduling Coordinator Relationship Specialty Start Date End Date Braydon Pavon PA [address] [place] [address] PCP - General Physician Property Supervisor 05/19/18 10/03/18 documented as of this encounter
--- OUTSIDE RECORDS SUMMARY | 2024-05-08 06:51 | XMS_ITS | Encounter Summary ---
Author Organization [facility] Address [address] [place] [address] [place] [address] Care Team Providers Care Ingot Caster Name Role Phone Braydon Pavon Primary Care Provider [phone] Encounter Details Date Type Department Care Team (Latest Contact Info) Description 12/29/2023 1:12 PM CDT - 12/29/2023 11:59 PM T Hospital Encounter [facility] OP DRAW STATION [address] [place] [phone] Discharge Disposition: Home or Self Care Social [...] Description 02/17/2024 11:59 PM CDT Anesthesia Event [facility] [address] [place] [address] Pushpa Frey, DO [address] [facility] [address] [phone] 05/20/2024 12:30 PM ADVERTISING ASSISTANT MANAGER Appointment [facility] [address] [place] [address] Steve Bedolla MD [address] [place] [address] documented as of this encounter Goals Goal [...] chetna Non-react chetna 12/29/2023 2:13 PM CDT [facility] Comment: < 8 mIU/mL [...] - CHEMISTRY LIONEL WHITT Performing Organization Address [facility] de Phone Number [facility] [address] [place] [address], [facility] [phone] * HEPATITIS A ANTIBODY (12/29/2023 1:12 PM CDT) Pathologist [facility] Hepatitis A Virus Antibody Total Negative Negative 12/31/2023 8:56 AM CDT [employer] ([facility]) Comment: Performed By: Alexis Bittar [address] [place] [address] Electrical Contractor: Benny Desai MD, PhD CLIA Number: [id number] Blood BLOOD SPECIMEN / Unknown Lab Venipuncture / Unknown 12/29/2023 1:12 PM CDT 12/29/2023 1:26 PM CDT Steve Bedolla MD LAB - CHEMISTRY LIONEL WHITT Performing Organization Address [facility] Co de Phone Number [employer] ([facility]) [address] [place] [address] * ALPHA FETOPROTEIN BLOOD TUMOR MARKER (12/29/2023 1:12 PM CDT) Alpha-Fetoprote in Tumor Marker 2.2 <=8.3 ng/mL 12/29/2023 2:22 PM CDT [facility] Comment: AFP values will vary depending on testing procedure used. Results are not comparable across different methods. AFP values obtained by [facility] using an Phoenix Alinity Immunoassay. Blood BLOOD SPECIMEN / Unknown Lab Venipuncture / Unknown 12/29/2023 1:12 PM CDT 12/29/2023 1:36 PM CDT Steve Bedolla MD LAB - CHEMISTRY LIONEL WHITT [address] [address], [facility] [phone] * BILIRUBIN DIRECT (12/29/2023 1:12 PM CDT) Pathologist [facility] Bilirubin Conjugated 0.5 0.1 - 0.5 mg/dL 12/29/2023 2:07 PM CDT [facility] Blood BLOOD SPECIMEN / Unknown Lab Venipuncture / Unknown 12/29/2023 1:12 PM CDT 12/29/2023 1:37 PM CDT Steve Bedolla MD LAB - CHEMISTRY LIONEL WHITT Performing Organization Address [facility]/ZIP Co de Phone Number [address] [address], [place] [phone] * PT-INR [facility] (12/29/2023 1:12 PM CDT) Pathologist [facility] PT 13.9 12.1 - 14.8 Seconds 12/29/2023 2:29 PM CDT [facility] INR 1.1 See Comment 12/29/2023 2:29 PM CDT [facility] Comment:The suggested therap eutic range for standard coumadin (warfarin) therapy is an INR of 2.0-3.0. For high-risk patients (Mechanical Mitral Valve Prosthesis, etc.), the suggested prophylactic therapeutic range is an INR of 2.5-3.5. Blood BLOOD SPECIMEN / Unknown Lab Venipuncture / Unknown 12/29/2023 1:12 PM CDT 12/29/2023 1:26 PM CDT Steve Bedolla MD LAB - COAGULATION OR DERABLES [facility] [address] [place] [address], [facility] [phone] * (ABNORMAL) COMPREHENSIVE METABOLIC PANEL (12/29/2023 1:12 PM CDT) BUN 13 7 - 26 mg/dL 12/29/2023 2:07 PM [facility] Creatinine 0.73 0.71 - 1.16 mg/dL 12/29/2023 2:07 PM [facility] Sodium 138 136 - 145 mmol/L 12/29/2023 2:07 PM [facility] Potassium 4.8(H) 3.5 - 4.5 mmol/L 12/29/2023 2:07 PM [facility] Chloride 105 98 - 107 mmol/L 12/29/2023 2:07 PM [facility] CO2 25 22 - 29 mmol/L 12/29/2023 2:07 PM [facility] Glucose 362(H) 70 - 115 mg/dL 12/29/2023 2:07 PM [facility] Calcium 9.8 8.4 - 10.2 mg/dL 12/29/2023 2:07 PM [facility] Protein Total 7.0 6.0 - 8.3 g/dL 12/29/2023 2:07 PM [facility] Albumin 3.7 3.4 - 5.0 g/dL 12/29/2023 2:07 PM [facility] Bilirubin Total 3.2(H) 0.2 - 1.2 mg/dL 12/29/2023 2:07 PM [facility] Alkaline Phosphatase 89 40 - 150 U/L 12/29/2023 2:07 PM [facility] ALT 16 5 - 55 U/L 12/29/2023 2:07 PM [facility] AST 23 5 - 34 U/L 12/29/2023 2:07 PM [facility] Anion Gap 8 6 - 16 12/29/2023 2:07 PM [facility] BUN/Creatinine Ratio 18 7 - 23 12/29/2023 2:07 PM [facility] Osmolality Calculated 301(H) 275 - 295 mOsm/kg 12/29/2023 2:07 PM [facility] Albumin/Globulin Ratio 1.1 1.1 - 2.3 12/29/2023 2:07 PM [facility] eGFR by CKD-EPI >90 >=90 mL/min/1.7 3 m2 12/29/2023 2:07 PM [facility] Blood BLOOD SPECIMEN / Unknown Lab Venipuncture / Unknown 12/29/2023 1:12 PM CDT 12/29/2023 1:37 PM CDT Steve Bedolla MD LAB - CHEMISTRY LIONEL WHITT [facility] Organization Address City/State/ZIP Co de Phone Number [facility] [address] [place] [address], [facility] [phone] * (ABNORMAL) CBC WITH DIFFERENTIAL (12/29/2023 1:12 PM CDT) WBC 4.2 4.0 - 10.7 x10E9/L 12/29/2023 1:52 PM [facility] RBC Count 5.58 4.30 - 5.80 x10E12/L 12/29/2023 1:52 PM [facility] Hemoglobin 15.8 13.3 - 17.5 g/dL 12/29/2023 1:52 PM [facility] Hematocrit 44.7 38.7 - 51.1 % 12/29/2023 1:52 PM [facility] MCV 80.1 80.0 - 98.0 fL 12/29/2023 1:52 PM [facility] MCH 28.3 26.7 - 33.6 pg 12/29/2023 1:52 PM [facility] MCHC 35.3 31.7 - 36.3 g/dL 12/29/2023 1:52 PM [facility] RDW-CV 18.2(H) 11.3 - 14.8 % 12/29/2023 1:52 PM [facility] Platelet Count 84(L) 150 - 420 x10E9/L 12/29/2023 1:52 PM [facility] MPV 10.0 7.8 - 11.4 fL 12/29/2023 1:52 PM [facility] Neutrophil % 68.4 41.0 - 74.0 % 12/29/2023 1:52 PM [facility] Lymphocyte % 17.5 17.0 - 47.0 % 12/29/2023 1:52 PM [facility] Monocyte % 9.2 3.0 - 11.0 % 12/29/2023 1:52 PM [facility] Eosinophil % 3.5 0.0 - 7.0 % 12/29/2023 1:52 PM [facility] Basophil % 1.2 0.0 - 1.6 % 12/29/2023 1:52 PM [facility] Immature Granulocytes % 0.2 0.0 - 1.0 % 12/29/2023 1:52 PM [facility] Neutrophil Absolute 2.89 1.60 - 7.50 x10E9/L 12/29/2023 1:52 PM [facility] Lymphocyte Absolute 0.74(L) 1.00 - 4.40 x10E9/L 12/29/2023 1:52 PM [facility] Monocyte Absolute 0.39 0.15 - 1.00 x10E9/L 12/29/2023 1:52 PM [facility] Eosinophil Absolute 0.15 0.00 - 0.60 x10E9/L 12/29/2023 1:52 PM [facility] Basophil Absolute 0.05 0.00 - 0.13 x10E9/L 12/29/2023 1:52 PM [facility] Blood BLOOD SPECIMEN / Unknown Lab Venipuncture / Unknown 12/29/2023 1:12 PM CDT 12/29/2023 1:36 PM CDT Steve Bedolla MD LAB - HEMATOLOGY ORD ERABLES [facility] Organization Address City/State/ZIP Co de Phone Number [facility] [address] [address], [facility] [phone] documented in this encounter Visit Diagnoses Diagnosis Cirrhosis of liver without ascites, unspecified hepatic cirrhosis type (HCC) Encounter for screening for other viral diseases documented in this encounter Care Teams Ingot Caster Relationship Specialty Start Date End Date Braydon Pavon PA [address] [place] [address] PCP - General Physician Loading Unit Operator Seating 07/14/23 documented as of this encounter
--- OUTSIDE RECORDS SUMMARY | 2024-05-08 06:51 | XMS_ITS | Encounter Summary ---
Author Organization [facility] Address [address] [facility] [place] [address] Care Team Providers Care Cyber Crime Investigator Name Role Phone Nikolay Lancaster MD Primary Care Provider [phone] Encounter Details Date Type Department Care Team [...] CDT Anesthesia Event [facility] MRI [address] [place] [phone] Pushpa Frey DO [address] [facility] [address] [address] 05/20/2024 12:30 PM WATER TRAINER Appointment [facility] MRI [address] [place] [address] Steve Bedolla MD [address] [place] [address] documented as of this encounter Visit Diagnoses Not on filedocumented in this encounter Care Teams Cyber Crime Investigator Relationship Specialty Start Date End Date Nikolay Lancaster MD [address] [place] [address] PCP - General 10/04/18 07/13/23 documented as of this encounter
--- OUTSIDE RECORDS SUMMARY | 2024-05-08 06:51 | XMS_ITS | Encounter Summary ---
Author Organization [facility] Address [facility] [place] [address] Care Team Providers Care Apartment Leasing Agent Name Role Phone Braydon Pavon Primary Care Provider [phone] Encounter Details Date Type Department Care Team (Late st Contact Info) Description 06/07/2018 Orders Only [facility] Endocrinology, Diabetes and Metabolism [address] [place] [address] Mary Grace Paredes LPN Social History Tobacco [...] Description 02/17/2024 11:59 PM CDT Anesthesia Event [facility] 12[address] [place] [address] Pushpa Frey DO 3691 [facility] [address] [phone] 05/20/2024 12:30 PM MOTOR VEHICLE LIGHT ASSEMBLER Appointment [facility] MRI [address] [place] [address] Steve Bedolla MD [address] [place] [address] documented as of this encounter Visit Diagnoses Not on filedocumented in this encounter Care Teams Apartment Leasing Agent Relationship Specialty Start Date End Date Braydon Pavon PA [address] [place] [address] PCP - General Physician Car Icer 05/19/18 10/03/18 documented as of this encounter
--- OUTSIDE RECORDS SUMMARY | 2024-05-08 06:51 | XMS_ITS | Encounter Summary ---
Author Organization [facility] Address [address] [facility] [place] [address] Care Team Providers Care Distribution Estimator Name Role Phone Braydon Pavon Primary Care Provider [phone] Encounter Details Date Type Department Care Team (Late Contact Info) Description 06/08/2018 Orders Only [facility] [address] [place] [address] Aleksandr Fink MD [address] [place] [address] S/P TIPS (transjugular intrahepatic portosystemic shunt) Social [...] Anesthesia Event [facility] MRI [address] [place] [phone] Pushpa Frey DO [address] [phone] 05/20/2024 12:30 PM BILL BOARD POSTER Appointment [facility] MRI [address] [place] [address] Steve Bedolla MD [address] [place] [address] documented as of this encounter Visit Diagnoses Diagnosis S/P TIPS (transjugular intrahepatic portosystemic shunt)- Primary Other postprocedural status documented in this encounter Care Teams Distribution Estimator Relationship Specialty Start Date End Date Braydon Pavon PA [address] [place] [address] PCP - General Physician X Ray Consultant 05/19/18 10/03/18 documented as of this encounter
--- OUTSIDE RECORDS SUMMARY | 2024-05-08 06:51 | XMS_ITS | Encounter Summary ---
Author Organization [facility] Address [address] [place] [address]. [place] [address] [place] [address] Care Team Providers Care Psychiatric Technician Assistant Name Role Phone Braydon Pavon Primary Care Provider [phone] Reason for Visit * Reason Onset Date Comments Refill Request 03/01/2024 NEEDS PA ON DEXC OM G7 SENSOR REFILL Encounter Details Date Type Department Care Team (Late st Contact Info) Description 03/01/2024 Telephone [facility] Diabetes and Endocrinology - [place] [address] [place] [address] Eva Power MD [address] [place] [address] Refill Request (NEEDS PA ON [...] name: Camilo Curry Mane Call back/ext. #: [phone] MyChart: No- caller prefers to be called via telephone Call details: NEEDS A PA ON MEDICATION Medication name: Continuous Glucose Sensor (DEXCOM G7 SENSOR) [facility]: [facility] - [place], [place] - [address], [facility] [address] documented in this encounter Plan of Treatment Upcoming Encounters Date Type Department Care Team (Late st Contact Info) Description 05/10/2024 11:40 AM SPECIAL PROCEDURES TECHNOLOGIST Office Visit [facility] Medical [facility] Diabetes and Endocrinology - [address] [address] Eva Power MD [address] [place] [address] documented as of this encounter Visit Diagnoses Not on filedocumented in this encounter Care Teams Psychiatric Technician Assistant Relationship Specialty Start Date End Date Braydon Pavon PA [address] [place] [address] PCP - General PHYSICIAN FORENSIC ARTIST 03/02/19 documented as of this encounter
--- OUTSIDE RECORDS SUMMARY | 2024-05-08 06:51 | XMS_ITS | Encounter Summary ---
Author Organization [facility] Address [address] [place], [place] [address] [address] Care Team Providers Care It Technician Name Role Phone Braydon Pavon Primary Care Provider Reason for Visit * Reason Onset Date Comments Medication Prior Auth Request 07/17/2023 Encounter Details Date Type Department Care Team ([facility] Contact Info) Description 07/17/2023 Telephone [facility] - [address] [phone] Sulema Arvizu RPhT Medication Prior Auth Request [...] Upcoming Encounters Date Type Department Care Team ([facility] st Contact Info) Description 02/17/2024 11:59 PM CDT Anesthesia Event [facility] MRI [address] [place] [phone] Pushpa Frey DO [address] [facility] [address] [place] [address] 05/20/2024 12:30 PM CHARGER OPERATOR HELPER Appointment [facility] MRI [address] [place] [address] Steve Bedolla MD [address] [place] [address] documented as of this encounter [...] filedocumented in this encounter Care Teams It Technician Relationship Specialty Start Date End Date Braydon Pavon PA [address] [place] [address] PCP - General Physician Remediation Consultant 07/14/23 documented as of this encounter
--- OUTSIDE RECORDS SUMMARY | 2024-05-08 06:51 | XMS_ITS | Encounter Summary ---
Author Organization [facility] Address [address] [facility] [place] [address] Care Team Providers Care Secondary Art Teacher Name Role Phone Braydon Pavon Primary Care Provider [phone] Encounter Details Date Type Department Care Team [...] Description 02/17/2024 11:59 PM CDT Anesthesia Event [facility] MRI [address] [place] [address] Pushpa Frey, DO [address] [facility] [address] [phone] 05/20/2024 12:30 PM PARTY PLANNER Appointment [facility] MRI [address] [place] [address] Steve Bedolla MD [address] [place] [address] documented as of this encounter [...] on filedocumented in this encounter Care Teams Secondary Art Teacher Relationship Specialty Start Date End Date Braydon Pavon PA [address] [place] [address] PCP - General Physician Dot Etcher Apprentice 07/14/23 documented as of this encounter
--- OUTSIDE RECORDS SUMMARY | 2024-05-08 06:51 | XMS_ITS | Encounter Summary ---
Author Organization [facility] Address [facility] [place] [address] Care Team Providers Care Tensioning Machine Operator Name Role Phone Nikolay Lancaster MD Primary Care Provider [phone] Reason for Visit * Reason Onset Date Comments MEDICATION REFILL 12/23/2018 Encounter Details Date Type Department Care Team (Late Contact Info) Description 12/23/2018 Refill [facility] [address] [place] [address] Edmond Choi MD [address] [place] [address] MEDICATION REFILL Social History Tobacco Use Types [...] 02/17/2024 11:59 PM CDT Anesthesia Event [facility] MRI [address] [place] [address] Pushpa Frey DO [address] [phone] 05/20/2024 12:30 PM TRADE ANALYST Appointment [facility] MRI [address] [place] [address] Steve Bedolla MD [address] [place] [address] documented as of this encounter Visit Diagnoses Not on filedocumented in this encounter Care Teams Tensioning Machine Operator Relationship Specialty Start Date End Date Nikolay Lancaster MD [address] [place] [address] PCP - General 10/04/18 07/13/23 documented as of this encounter
--- OUTSIDE RECORDS SUMMARY | 2024-05-08 06:51 | XMS_ITS | Encounter Summary ---
Author Organization [facility] Address [address] [facility] [place] [address] Care Team Providers Care Analysis Director Name Role Phone Braydon Pavon Primary Care Provider [phone] Reason for Visit * Reason Comments Appointment Encounter Details Date Type Department Care Team (Late Contact Info) Description 05/19/2018 Telephone [facility] - [address] [facility] [place] [address] Braydon Pavon PA [address] [place] [address] Appointment Social History Tobacco Use Types Packs/Day Years Used Date Smoking Tobacco: Never Assessed Sex and Gender Information Value Date Recorded Sex Assigned at Not on file Gender Identity Not on file Sexual Orientation Not on file documented as of this encounter Progress Notes * Kassie Fuentes - 05/19/2018 1:28 PM CST PT TO CALL FOR APPT W/ DECOMP [facility]INIC. RECORDS SCANNED AL CEO documented in this encounter Plan of Treatment Upcoming Encounters Date Type Department Care Team (Late Contact Info) Description 02/17/2024 11:59 PM CDT Anesthesia Event [facility] MRI [address] [place] [phone] Pushpa Frey, DO [address] [facility] [address] [address] 05/20/2024 12:30 PM GLOBAL CEO Appointment [facility] MRI [address] [place] [address] Steve Bedolla MD [address] [place] [address] documented as of this encounter Visit Diagnoses Not on filedocumented in this encounter Care Teams Analysis Director Relationship Specialty Start Date End Date Braydon Pavon PA [address] [place] [address] PCP - General Physician Furnace Liner 05/19/18 10/03/18 documented as of this encounter
--- OUTSIDE RECORDS SUMMARY | 2024-05-08 06:51 | XMS_ITS | Encounter Summary ---
Author Organization [facility] Address [facility] [place] [address] Care Team Providers Care Survey Data Technician Name Role Phone Braydon Pavon Primary Care Provider [phone] Encounter Details Date Type Department Care Team [...] Anesthesia Event [facility] MRI [address] [place] [phone] Pushpa Frey DO 3[address] [facility] [place] [address] [phone] 05/20/2024 12:30 PM ELECTRIC CRANE OPERATOR Appointment [facility] MRI [address] [place] [address] Steve Bedolla MD [address] [place] [address] documented as of this encounter Goals Goal [...] on filedocumented in this encounter Care Teams Survey Data Technician Relationship Specialty Start Date End Date Braydon Pavon PA [address] [place] [address] PCP - General Physician Solar Power Installer 07/14/23 documented as of this encounter
--- OUTSIDE RECORDS SUMMARY | 2024-05-08 06:51 | XMS_ITS | Encounter Summary ---
Author Organization [facility] Address [facility] [place] [address] Care Team Providers Care Shoeshiner Name Role Phone Braydon Pavon Primary Care Provider [phone] Reason for Visit * Reason Comments Establish Care DIABETES Encounter Details Date Type Department Care Team (Late st Contact Info) Description 05/24/2018 8:00 AM LEADLIGHTER Office Visit [facility] [address] [facility] [place] [address] Edmond Choi MD [address] [facility] [address] [facility] [place] [address] Type 2 diabetes mellitus with complication, with [...] Comments Blood Pressure 152/89 05/24/2018 8:17 AM LEADLIGHTER Pulse 102 05/24/2018 8:17 AM LEADLIGHTER Temperature 36.6 ??C (97.9 ??F) 05/24/2018 8:17 AM CS T Respiratory Rate - - Oxygen Saturation 96% 05/24/2018 8:17 AM LEADLIGHTER Inhaled Oxygen Concentration - - Weight 125.2 kg (276 lb) 05/24/2018 8:17 AM LEADLIGHTER Height 172.7 cm (5' 8 ) 05/24/2018 8:17 AM LEADLIGHTER Body Mass Index 41.97 05/24/2018 8:17 AM LEADLIGHTER documented in this encounter Patient Instructions * Patient Instructions* Edmond Choi MD - 05/24/2018 8:52 AM LEADLIGHTER U500 insulin every 6 hours:- 150 units in AM 150 units in afternoon 150 units in evening 100 units at bedtime Take metformin ER 1000 mg in evening Start Hydrochlorothiazide 25 mg in AM LIGHTER documented in this encounter Progress Notes * Edmond Choi MD - 05/24/2018 8:19 AM CST Subjective: Camilo Curry is a 47 y.o. male who presents for an initial evaluation of Type 2 diabetes mellitus. Developed prediabetes, but after receiving steroids in back for spinal stenosis, he progressed to diabetes in 2011. Was seeing an linux unix administrator in [place] but insurance changed and he is here [...] s/p TIPS 11/2015. Transferring liver care from [place] to [facility] due to insurance. Spinal stenosis: Disabled. [...] lipids before next visit RTC 4 weeks LIGHTER documented in this encounter Plan of Treatment Upcoming Encounters Date Type Department Care Team (Late st Contact Info) Description 02/17/2024 11:59 PM CDT Anesthesia Event [facility] [address] [place] [phone] Pushpa Frey, [address] [facility] [address] [phone] 05/20/2024 12:30 PM LEADLIGHTER Appointment [facility] MRI [address] [place] [address] Steve Bedolla MD [address] [place] [phone] Scheduled Orders Name Type Priority Associated Diagnoses Orde r Schedule MICROALB/CREAT RATIO URINE RANDOM PANEL Lab Routine Type 2 diabetes mellitus with complication, with long-term current use of insulin (HCC) Expected: 05/24/2018 (Approximate), Expires: 06/24/2019 documented as of this encounter Procedures Procedure Name Priority Date/Time Associated Diagnosis Comments HEMOGLOBIN A1C - POINT OF CARE (AMB) [facility] Routine 05/24/2018 8:30 AM LEADLIGHTER Type 2 diabetes mellitus with complication, with long-term current use of insulin (HCC) HEMOGLOBIN A1C - POINT OF CARE (AMB) [facility] Routine 05/24/2018 Type 2 diabetes mellitus with complication, with long-term current use of insulin (HCC) documented in this encounter Results * HEMOGLOBIN A1C - POINT OF CARE (AMB) [facility] (05/24/2018 8:30 AM LEADLIGHTER) Hemoglobin A1c POCT 8.2 BLOOD SPECIMEN / Unknown 05/24/2018 8:30 AM LEADLIGHTER Edmond Choi MD LAB - POINT OF [...] Primary documented in this encounter Care Teams Shoeshiner Relationship Specialty Start Date End Date Braydon Pavon PA [address] [place] [address] PCP - General Physician Hospitality Services Manager 05/19/18 10/03/18 documented as of this encounter
--- OUTSIDE RECORDS SUMMARY | 2024-05-08 06:51 | XMS_ITS | Encounter Summary ---
Author Organization [facility] Address [facility]3 [facility] [place] [address] Care Team Providers Care Loss Prevention Consultant Name Role Phone Nikolay Lancaster MD Primary Care Provider [phone] Reason for Visit * Reason Onset Date Comments Pre-admit 02/09/2019 Encounter Details Date Type Department Care Team (Late st Contact Info) Description 02/09/2019 Telephone [facility] PHYS INTERNAL MED [address] [place] [address] Lukas Moses Jr., MD [facility] [address] [place] [address] [address] [place] [address] Pre-admit Social History Tobacco Use [...] that he left AMA from the ER. [facility] GI remains happy to accepthim for further care should he represent. * Telephone Encounter - Lukas Moses Jr., MD - 02/09/2019 5:54 AM CDT [facility] Mr. Curry. Briefly, he [...] Event [facility] MRI [address] [place] [address] Pushpa Frey DO [address] [facility] [address] [phone] 05/20/2024 12:30 PM REFINERY PROCESS ENGINEER Appointment [facility] MRI [address] [place] [phone] Steve Bedolla MD [address] [place] [phone] documented as of this encounter Visit Diagnoses Not on filedocumented in this encounter Care Teams Loss Prevention Consultant Relationship Specialty Start Date End Date Nikolay Lancaster MD [address] [place] [address] PCP - General 10/04/18 07/13/23 documented as of this encounter
--- OUTSIDE RECORDS SUMMARY | 2024-05-08 06:51 | XMS_ITS | Encounter Summary ---
Author Organization [facility] Address [facility]3 [place] [address] Care Team Providers Care Information Assurance Name Role Phone Braydon Pavon Primary Care Provider [phone] Reason for Referral * Radiology Services (Routine) - Closed Specialty Diagnoses / Procedures Referred By Contac t Referred To Contact MRI Diagnoses Cirrhosis of liver without ascites, unspecified hepatic cirrhosis type (HCC) Liver lesion Procedures MRI Abdomen Wwo Contrast Steve Bedolla MD [address] [place] [phone] [facility] Mri [address] [place] [address] Referral ID Status Reason Start Date Expiration Date Visits Re quested Visits Authorized [id number] Closed 02/11/2024 04/11/2024 1 1 * Procedure (Routine) - Open Specialty Diagnoses / Procedures Referred By Contac t Referred To Contact Gastroenterology Diagnoses Cirrhosis of liver without ascites, unspecified hepatic cirrhosis type (HCC) Procedures EGD Steve Bedolla MD [address] [place] [phone] Referral ID Status Reason Start Date Expiration Date Visits Re quested Visits Authorized [id number] Open 12/29/2023 12/28/2024 1 1 * Consultation (Routine) - Closed Specialty Diagnoses / Procedures Referred By Contac t Referred To Contact Endocrinology Diagnoses Cirrhosis of liver without ascites, unspecified hepatic cirrhosis type (HCC) Steve Bedolla MD [address] [place] [phone] [address] Referral ID Status Reason Start Date Expiration Date V isits Requested Visits Authorized [id number] Closed Specialty Services Required 12/29/2023 12/28/2024 4 4 Reason for Visit * Reason Comments Cirrhosis Encounter Details Date Type Department Care Team (Late st Contact Info) Description 12/29/2023 11:30 AM CDT Office Visit [facility] - GI [address] [place] [address] Steve Bedolla MD [address] [place] [phone] Cirrhosis of liver without ascites, unspecified [...] Bedolla MD - 12/29/2023 12:04 PM CDT [facility] Referring Provider: [...] saw Mr. Curry in Liver Clinic at [facility] today for a follow-up visit regarding decompensated cirrhosis. He is a 53 year old man whose last clinic visit was 07/14/2023 and today is accompanied by his and 2nd cousin . Liver History Previously followed by Dr. Kathryn Ellis and Dr. Elian Estrada at [facility] but insurance changed. History of GI bleed [...] updated and corrected these sections of his [facility] electronic health record based on my discussions with him and/orhis family members present at his visit today. Social History Social History Narrative Disabled. 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 Established Patient Total time spent on date of encounter: 40 minutes Highest problem complexity: 2 or more stable chronic illnesses Data review: Ordering of test(s): 1 unique test(s) ordered Suggested code: 28661 This visit has been a part of a consistent, comprehensive, and ongoing management of the chronic medical conditions(s) listed above for the patient. 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 Nonreactive for HBsAb - individual is considered not immune to Hepatitis B Virus infection. Hepatitis B Surface Antibody Quantitative 0.3 <8.0 mIU/mL 12/29/2023 2:13 PM CDT [facility] Comment: Hepatitis B Surface Antibody Numeric Result Interpretation: ? Nonreactive: ?<8.0 mIU/mL ? Indeterminate: ??8.0 - 12.0 mIU/mL ? Reactive: ?>12.0 mIU/mL ? Blood BLOOD SPECIMEN / Unknown Lab Venipuncture / Unknown 12/29/2023 1:12 PM CDT 12/29/2023 1:26 PM CDT Steve Bedolla MD LAB - CHEMISTRY LIONEL WHITT Performing Organization Address City/[facility]/ZIP Co de Phone Number [facility] LABORATORY [facility] [address] [place] [address], [place] [phone] * HEPATITIS A ANTIBODY (12/29/2023 1:12 PM CDT) [facility] Hepatitis A Virus Antibody Total Negative Negative 12/31/2023 8:56 AM CDT [employer] ([facility]) Comment: Performed By: [employer] [address] [place] [address] Solder Technician: Benny Desai MD, PhD CLIA Number: [id number] Blood BLOOD SPECIMEN / Unknown Lab Venipuncture / Unknown 12/29/2023 1:12 PM CDT 12/29/2023 1:26 PM CDT Steve Bedolla MD LAB - CHEMISTRY LIONEL WHITT Performing Organization Address [facility] Co de Phone Number [employer] [facility]) [address] [place] [phone] [place] [address] * ALPHA FETOPROTEIN BLOOD TUMOR MARKER (12/29/2023 1:12 PM CDT) [facility] Alpha-Fetoprote in Tumor Marker 2.2 <=8.3 ng/mL 12/29/2023 2:22 PM CDT [facility] Comment: AFP values will vary depending on testing procedure used. Results are not comparable across different methods. AFP values obtained by [facility] using an Phoenix Alinity Immunoassay. Blood BLOOD SPECIMEN / Unknown Lab Venipuncture / Unknown 12/29/2023 1:12 PM CDT 12/29/2023 1:36 PM CDT Steve Bedolla MD LAB - CHEMISTRY LIONEL WHITT Performing Organization Address City/[facility]/ZIP Co de Phone Number [facility] [address] [place] [address], [place] [phone] * BILIRUBIN DIRECT (12/29/2023 1:12 PM CDT) Bilirubin Conjugated 0.5 0.1 - 0.5 mg/dL 12/29/2023 2:07 PM CDT [facility] Blood BLOOD SPECIMEN / Unknown Lab Venipuncture / Unknown 12/29/2023 1:12 PM CDT 12/29/2023 1:37 PM CDT Steve Bedolla MD LAB - CHEMISTRY ORDE RABLES Performing Organization Address City/[facility]/ZIP Co de Phone Number [facility] [address] [place] [address], [facility] [phone] * PT-INR [facility] (12/29/2023 1:12 PM CDT) Pathologist [facility] PT 13.9 12.1 - 14.8 Seconds 12/29/2023 2:29 PM CDT [facility] INR 1.1 See Comment 12/29/2023 2:29 PM CDT [facility] Comment:The suggested therap eutic range for standard coumadin (warfarin) therapy is an INR of 2.0-3.0. For high-risk patients (Mechanical Mitral Valve Prosthesis, etc.), the suggested prophylactic therapeutic range is an INR of 2.5-3.5. Blood BLOOD SPECIMEN / Unknown Lab Venipuncture / Unknown 12/29/2023 1:12 PM CDT 12/29/2023 1:26 PM CDT Steve Bedolla MD LAB - COAGULATION OR DERABLES Performing Organization Address City/[facility]/ZIP Co de Phone Number [facility] [address] [place] [address], [place] [phone] * (ABNORMAL) COMPREHENSIVE METABOLIC PANEL (12/29/2023 1:12 PM CDT) BUN 13 7 - 26 mg/dL 12/29/2023 2:07 PM CDT [facility] Creatinine 0.73 0.71 - 1.16 mg/dL 12/29/2023 2:07 PM [facility] Sodium 138 136 - 145 mmol/L 12/29/2023 2:07 PM [facility] Potassium 4.8(H) 3.5 - 4.5 mmol/L 12/29/2023 2:07 PM [facility] Chloride 105 98 - 107 mmol/L 12/29/2023 2:07 PM [facility] CO2 25 22 - 29 mmol/L 12/29/2023 2:07 PM [facility] Glucose 362(H) 70 - 115 mg/dL 12/29/2023 2:07 PM [facility] Calcium 9.8 8.4 - 10.2 mg/dL 12/29/2023 2:07 PM [facility] Protein Total 7.0 6.0 - 8.3 g/dL 12/29/2023 2:07 PM [facility] Albumin 3.7 3.4 - 5.0 g/dL 12/29/2023 2:07 PM [facility] Bilirubin Total 3.2(H) 0.2 - 1.2 mg/dL 12/29/2023 2:07 PM [facility] Alkaline Phosphatase 89 40 - 150 U/L 12/29/2023 2:07 PM [facility] ALT 16 5 - 55 U/L 12/29/2023 2:07 PM [facility] AST 23 5 - 34 U/L 12/29/2023 2:07 PM [facility] Anion Gap 8 6 - 16 12/29/2023 2:07 PM [facility] BUN/Creatinine Ratio 18 7 - 23 12/29/2023 2:07 PM [facility] Osmolality Calculated 301(H) 275 - 295 mOsm/kg 12/29/2023 2:07 PM [facility] Albumin/Globulin Ratio 1.1 1.1 - 2.3 12/29/2023 2:07 PM [facility] eGFR by CKD-EPI >90 >=90 mL/min/1.7 3 m2 12/29/2023 2:07 PM [facility] Blood BLOOD SPECIMEN / Unknown Lab Venipuncture / Unknown 12/29/2023 1:12 PM CDT 12/29/2023 1:37 PM CDT Steve Bedolla MD LAB - CHEMISTRY LIONEL WHITT [facility] Organization Address City/State/ZIP Co de Phone Number [facility] LABORATORY [facility] [address] [place] [address], [facility] [phone] * (ABNORMAL) CBC WITH DIFFERENTIAL (12/29/2023 1:12 PM CDT) WBC 4.2 4.0 - 10.7 x10E9/L 12/29/2023 1:52 PM [facility] RBC Count 5.58 4.30 - 5.80 x10E12/L 12/29/2023 1:52 PM [facility] Hemoglobin 15.8 13.3 - 17.5 g/dL 12/29/2023 1:52 PM [facility] Hematocrit 44.7 38.7 - 51.1 % 12/29/2023 1:52 PM [facility] MCV 80.1 80.0 - 98.0 fL 12/29/2023 1:52 PM [facility] MCH 28.3 26.7 - 33.6 pg 12/29/2023 1:52 PM [facility] MCHC 35.3 31.7 - 36.3 g/dL 12/29/2023 1:52 PM [facility] RDW-CV 18.2(H) 11.3 - 14.8 % 12/29/2023 1:52 PM [facility] Platelet Count 84(L) 150 - 420 x10E9/L 12/29/2023 1:52 PM [facility] MPV 10.0 7.8 - 11.4 fL 12/29/2023 1:52 PM [facility] Neutrophil % 68.4 41.0 - 74.0 % 12/29/2023 1:52 PM [facility] Lymphocyte % 17.5 17.0 - 47.0 % 12/29/2023 1:52 PM [facility] Monocyte % 9.2 3.0 - 11.0 % 12/29/2023 1:52 PM [facility] Eosinophil % 3.5 0.0 - 7.0 % 12/29/2023 1:52 PM [facility] Basophil % 1.2 0.0 - 1.6 % 12/29/2023 1:52 PM [facility] Immature Granulocytes % 0.2 0.0 - 1.0 % 12/29/2023 1:52 PM [facility] Neutrophil Absolute 2.89 1.60 - 7.50 x10E9/L 12/29/2023 1:52 PM [facility] Lymphocyte Absolute 0.74(L) 1.00 - 4.40 x10E9/L 12/29/2023 1:52 PM [facility] Monocyte Absolute 0.39 0.15 - 1.00 x10E9/L 12/29/2023 1:52 PM [facility] Eosinophil Absolute 0.15 0.00 - 0.60 x10E9/L 12/29/2023 1:52 PM [facility] Basophil Absolute 0.05 0.00 - 0.13 x10E9/L 12/29/2023 1:52 PM [facility] Blood BLOOD SPECIMEN / Unknown Lab Venipuncture / Unknown 12/29/2023 1:12 PM CDT 12/29/2023 1:36 PM CDT Steve Bedolla MD LAB - HEMATOLOGY ORD ERABLES [facility] [address] [place] [address], [facility] [phone] documented in this encounter Visit Diagnoses Diagnosis [...] (HCC) documented in this encounter Care Teams Information Assurance Relationship Specialty Start Date End Date Braydon Pavon PA [address] [place] [address] PCP - General Physician Mixed Crop Farmer 07/14/23 documented as of this encounter
--- OUTSIDE RECORDS SUMMARY | 2024-05-08 06:51 | XMS_ITS | Encounter Summary ---
Author Organization [facility] Address [address] [facility] [place] [address] Care Team Providers Care Instrument Calibrator Name Role Phone Braydon Pavon Primary Care Provider [phone] Reason for Visit * Reason Comments Pain Abdominal Pt BIBself c/o pain in LUQ, pt states where my liver is. Pt was at [facility] Thursday and Thursday for sedated MRI, could not receive one, and believes he still needs one. Pt has shunt and believes there may be a clog. Encounter Details Date Type Department Care Team (Late st Contact Info) Description 01/22/2024 8:37 PM CDT - 01/22/2024 8:43 PM CDT Emergency [facility] EMERGENCY DEPARTMENT [address] [place] [phone] Discharge Disposition: Left Against Medical Advice/Discontinued Care [...] where my liver is. Pt was at [facility] Thursday and Thursday for sedated [...] Event [facility] MRI [address] [place] [phone] Pushpa Frey, DO [address] [facility] [address] [phone] 05/20/2024 12:30 PM NURSING STAFF DEVELOPMENT COORDINATOR Appointment [facility] MRI [address] [place] [address] Steve Bedolla MD [address] [place] [address] documented as of this encounter [...] on filedocumented in this encounter Care Teams Instrument Calibrator Relationship Specialty Start Date End Date Braydon Pavon PA [address] [place] [address] PCP - General Physician Curtain Cleaner 07/14/23 documented as of this encounter
--- OUTSIDE RECORDS SUMMARY | 2024-05-08 06:51 | XMS_ITS | Encounter Summary ---
Author Organization [facility] Address [facility]3 [facility] [place] [address] Care Team Providers Care Community Board Member Name Role Phone Braydon Pavon Primary Care Provider [phone] Reason for Referral * (Routine) - Open Specialty Diagnoses / Procedures Referred By Contac t Referred To Contact Diagnoses Cirrhosis of liver without ascites, unspecified hepatic cirrhosis type (HCC) Procedures [id number] BLOOD Steve Beodlla MD [address] [place] [address] Referral ID Status Reason Start Date Expiration Date Visits Re quested Visits Authorized [id number] Open 07/14/2023 07/13/2024 1 1 Reason for Visit * (Routine) - Open Specialty Diagnoses / Procedures Referred By Contwinnie casillas Referred To Contact Diagnoses Cirrhosis of liver without ascites, unspecified hepatic cirrhosis type (HCC) Procedures [id number] BLOOD Steve Bedolla MD [facility] [place] [address] Referral ID Status Reason Start Date Expiration Date Visits Re quested Visits Authorized [id number] Open 07/14/2023 07/13/2024 1 1 Encounter Details Date Type Department Care Team (Latest Contact Info) Description 07/14/2023 4:35 PM CDT - 07/14/2023 11:59 PM CDT Hospital Encounter [facility] LAB OP DRAW STATION [address] [place] [address] Discharge Disposition: Home or Self Care Social [...] Event [facility] MRI [address] [place] [phone] Pushpa Frey [address] 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 Appointment [facility] MRI [address] [place] [phone] Steve Bedolla MD [address] [place] [address] documented as of this encounter [...] Name Priority Date/Time Associated Diagnosis Comments PT-INR [facility] Routine 07/14/2023 4:58 PM CDT Cirrhosis of liver without ascites, unspecified hepatic cirrhosis type (HCC) NILE BLOOD SCREEN W/REFLEX TITER Routine 07/14/2023 4:58 PM CDT Cirrhosis of liver without ascites, unspecified hepatic cirrhosis type (HCC) ALPHA FETOPROTEIN BLOOD TUMOR MARKER Routine 07/14/2023 4:58 PM CDT Cirrhosis of liver without ascites, unspecified hepatic cirrhosis type (HCC) [id number] BLOOD Routine 07/14/2023 4:58 PM CDT Cirrhosis [...] (HCC) documented in this encounter Results * [id number] BLOOD (07/14/2023 4:58 PM CDT) Elafc-2-Kwkdbq ypsin 182 90 - 200 mg/dL 07/14/2023 5:40 PM CDT [facility] LABORATORY [facility] Blood BLOOD SPECIMEN / Unknown Lab Venipuncture / Unknown 07/14/2023 4:58 PM CDT 07/14/2023 5:15 PM CDT Steve Bedolla MD LAB - CHEMISTRY ORDE PERI [facility] [address] [place] [address], [facility] [phone] * IRON + TRANSFERRIN PANEL (07/14/2023 4:58 [...] Performing Organization Address City/[facility]/ZIP Co de Phone Number [address] [address], [facility] [phone] * FERRITIN (07/14/2023 4:58 PM CDT) Pathologist [facility] Ferritin 71 22 - 275 ng/mL 07/14/2023 5:58 PM CDT [facility] Blood BLOOD SPECIMEN / Unknown Lab Venipuncture / Unknown 07/14/2023 4:58 PM CDT 07/14/2023 5:15 PM CDT Steve Bedolla MD LAB - CHEMISTRY LIONEL WHITT [address] [address], [place] [phone] * NILE BLOOD SCREEN W/REFLEX TITER (07/14/2023 4:58 PM CDT) Pathologist [facility] NILE IgG None Detected None Detected 07/16/2023 10:11 PM CDT [facility] ([facility]) Comment: If suspicion of connective tissue disease is strong and NILE EIA is negative, consider testing for NILE by IFA ([id number]). INTERPRETIVE INFORMATION: Anti-Nuclear Antibodies (NILE), IgG by RAMOS Antinuclear Antibodies (NILE), IgG by RAMOS: NILE specimens are screened using enzyme-linked immunosorbent assay (RAMOS) methodology. All RAMOS results reported as Detected are further tested by indirect fluorescent assay (IFA) using HEp-2 substrate with an IgG-specific conjugate. The NILE RAMOS screen is designed to detect antibodies against dsDNA, histones, SS-A (Ro), SS-B (La), Mclean, Mclean/ENTRY LEVEL SALES CONSULTANT, Scl-70, Evelina-1, centromeric proteins, other antigens extracted from the HEp-2 cell nucleus. NILE RAMOS assays have been reported to have lower sensitivities than NILE IFA for systemic autoimmune rheumatic diseases (SARD). Negative results do not necessarily rule out SARD. Performed By: [employer] [address] [place] [id number] Marketing Data Specialist: Benny Desai MD, PhD CLIA Number: [id number] Blood BLOOD SPECIMEN / Unknown Lab Venipuncture / Unknown 07/14/2023 4:58 PM CDT 07/14/2023 5:15 PM CDT Steve Bedolla MD LAB - CHEMISTRY LIONEL WHITT Performing Organization Address City/[facility]/ZIP Co de Phone Number [facility] ([facility]) [address] [place] [phone] [place] [address] * ALPHA FETOPROTEIN BLOOD TUMOR MARKER (07/14/2023 4:58 PM CDT) Alpha-Fetoprote in Tumor Marker <2.0 <=8.3 ng/mL 07/14/2023 6:11 PM CDT [facility] Comment: AFP values will vary depending on testing procedure used. Results are not comparable across different methods. AFP values obtained by [facility] using an [place] Alinity Immunoassay. Blood BLOOD SPECIMEN / Unknown Lab Venipuncture / Unknown 07/14/2023 4:58 PM CDT 07/14/2023 5:21 PM CDT Steve Bedolla MD LAB - CHEMISTRY LIONEL WHITT Performing Organization Address City/[facility]/ZIP Co de Phone Number [facility] [address] [place] [address], [facility] [phone] * BILIRUBIN DIRECT (07/14/2023 4:58 PM CDT) [facility] Bilirubin Conjugated 0.5 0.1 - 0.5 mg/dL 07/14/2023 5:50 PM CDT [facility] Blood BLOOD SPECIMEN / Unknown Lab Venipuncture / Unknown 07/14/2023 4:58 PM CDT 07/14/2023 5:21 PM CDT Steve Bedolla MD LAB - CHEMISTRY ORDE PERI Performing Organization Address [facility]/ZIP Co de Phone Number [address] [address], [facility] [phone] * (ABNORMAL) PT-INR [facility] (07/14/2023 4:58 PM CDT) [facility] PT 14.9(H) 12.1 - 14.8 Seconds [...] - COAGULATION OR DERABLES Performing Organization Address [facility]/ZIP Co de Phone Number [address] [address], [facility] [phone] * (ABNORMAL) COMPREHENSIVE METABOLIC PANEL (07/14/2023 4:58 PM CDT) [facility] BUN 13 7 - 26 mg/dL 07/14/2023 5:50 PM CDT [facility] Creatinine 0.74 0.71 - 1.16 mg/dL 07/14/2023 5:50 PM CDT [facility] Sodium 135(L) 136 - 145 mmol/L 07/14/2023 5:50 PM [facility] Potassium 4.1 3.5 - 4.5 mmol/L 07/14/2023 5:50 PM [facility] Chloride 99 98 - 107 mmol/L 07/14/2023 5:50 PM [facility] CO2 24 22 - 29 mmol/L 07/14/2023 5:50 PM [facility] Glucose 343(H) 70 - 115 mg/dL 07/14/2023 5:50 PM [facility] Calcium 9.9 8.4 - 10.2 mg/dL 07/14/2023 5:50 PM [facility] Protein Total 7.4 6.0 - 8.3 g/dL 07/14/2023 5:50 PM [facility] Albumin 3.8 3.4 - 5.0 g/dL 07/14/2023 5:50 PM [facility] Bilirubin Total 4.8(H) 0.2 - 1.2 mg/dL 07/14/2023 5:50 PM [facility] Alkaline Phosphatase 112 40 - 150 U/L 07/14/2023 5:50 PM [facility] ALT 13 5 - 55 U/L 07/14/2023 5:50 PM [facility] AST 18 5 - 34 U/L 07/14/2023 5:50 PM [facility] Anion Gap 12 6 - 16 07/14/2023 5:50 PM [facility] BUN/Creatinine Ratio 18 7 - 23 07/14/2023 5:50 PM [facility] Osmolality Calculated 294 275 - 295 mOsm/kg 07/14/2023 5:50 PM [facility] Albumin/Globulin Ratio 1.1 1.1 - 2.3 07/14/2023 5:50 PM [facility] eGFR by CKD-EPI >90 >=90 mL/min/1.7 3 m2 07/14/2023 5:50 PM [facility] Blood BLOOD SPECIMEN / Unknown Lab Venipuncture / Unknown 07/14/2023 4:58 PM CDT 07/14/2023 5:21 PM CDT Steve Bedolla MD LAB - CHEMISTRY ORDKunal WHITT [facility] Organization Address City/State/ZIP Co de Phone Number [facility] [address] [place] [address], [facility] [phone] * (ABNORMAL) CBC WITH DIFFERENTIAL (07/14/2023 4:58 PM CDT) WBC 7.2 4.0 - 10.7 x10E9/L 07/14/2023 5:32 PM [facility] RBC Count 5.81(H) 4.30 - 5.80 x10E12/L 07/14/2023 5:32 PM [facility] Hemoglobin 15.2 13.3 - 17.5 g/dL 07/14/2023 5:32 PM [facility] Hematocrit 43.7 38.7 - 51.1 % 07/14/2023 5:32 PM [facility] MCV 75.2(L) 80.0 - 98.0 fL 07/14/2023 5:32 PM [facility] MCH 26.2(L) 26.7 - 33.6 pg 07/14/2023 5:32 PM [facility] MCHC 34.8 31.7 - 36.3 g/dL 07/14/2023 5:32 PM [facility] RDW-CV 18.6(H) 11.3 - 14.8 % 07/14/2023 5:32 PM [facility] Platelet Count 109(L) 150 - 420 x10E9/L 07/14/2023 5:32 PM [facility] MPV 10.5 7.8 - 11.4 fL 07/14/2023 5:32 PM [facility] Neutrophil % 71.1 41.0 - 74.0 % 07/14/2023 5:32 PM [facility] Lymphocyte % 15.5(L) 17.0 - 47.0 % 07/14/2023 5:32 PM [facility] Monocyte % 10.2 3.0 - 11.0 % 07/14/2023 5:32 PM [facility] Eosinophil % 1.9 0.0 - 7.0 % 07/14/2023 5:32 PM [facility] Basophil % 1.0 0.0 - 1.6 % 07/14/2023 5:32 PM [facility] Immature Granulocytes % 0.3 0.0 - 1.0 % 07/14/2023 5:32 PM [facility] Neutrophil Absolute 5.15 1.60 - 7.50 x10E9/L 07/14/2023 5:32 PM [facility] Lymphocyte Absolute 1.12 1.00 - 4.40 x10E9/L 07/14/2023 5:32 PM [facility] Monocyte Absolute 0.74 0.15 - 1.00 x10E9/L 07/14/2023 5:32 PM [facility] Eosinophil Absolute 0.14 0.00 - 0.60 x10E9/L 07/14/2023 5:32 PM [facility] Basophil Absolute 0.07 0.00 - 0.13 x10E9/L 07/14/2023 5:32 PM [facility] Blood BLOOD SPECIMEN / Unknown Lab Venipuncture / Unknown 07/14/2023 4:58 PM CDT 07/14/2023 5:22 PM CDT Steve Bedolla MD LAB - HEMATOLOGY ORD ERABLES Performing Organization Address City/State/[facility] Co de Phone Number [facility] [address] [place] [address], [facility] [phone] documented in this encounter Visit Diagnoses Diagnosis Cirrhosis of liver without ascites, unspecified hepatic cirrhosis type (HCC) documented in this encounter Care Teams Community Board Member Relationship Specialty Start Date End Date Braydon Pavon PA [address] [place] [address] PCP - General Physician Instructor Industrial Design 07/14/23 documented as of this encounter
--- OUTSIDE RECORDS SUMMARY | 2024-05-08 06:51 | XMS_ITS | Encounter Summary ---
Author Organization [facility] Address [facility]3 [place] [address] Care Team Providers Care Crate Tier Name Role Phone Braydon Pavon Primary Care Provider [phone] Reason for Visit * Reason Onset Date Comments Medication Prior Auth Request 01/05/2024 PA needed for Xifaxan Encounter Details Date Type Department Care Team (Late st Contact Info) Description 01/05/2024 Telephone [facility] - [address] [place] [phone] Sulema Arvizu, [facility] Medication Prior Auth Request (PA needed for [...] THROUGH 01-20-2025 Submitted via: Cover My Meds ([place]:[email or web address]) Insurance: [employer] / [employer] [place] Medicaid Helpdesk: [phone] Benito Addison, Medication Telephoner Pharmacy [facility] for [...] - Pending Submitted via: Cover My Meds ([place]:[email or web address]) Insurance: [employer] / [employer] [place] Medicaid Helpdesk: [phone] Benito Addison, Medication Telephoner Pharmacy [facility] for [...] CDT Anesthesia Event [facility] MRI [address] [place] [phone] Pushpa Frey, DO [address] [facility] [address] [phone] 05/20/2024 12:30 PM OUTPATIENT SURGERY RN Appointment [facility] MRI [address] [place] [address] Steve Bedolla MD [address] [place] [address] documented as of this encounter [...] on filedocumented in this encounter Care Teams Crate Tier Relationship Specialty Start Date End Date Braydon Pavon PA [address] [place] [address] PCP - General Physician Content Writer 07/14/23 documented as of this encounter
--- OUTSIDE RECORDS SUMMARY | 2024-05-08 06:51 | XMS_ITS | Encounter Summary ---
Author Organization [facility] Address [facility]3 [facility] [place] [address] Care Team Providers Care Duplicating Machine Operator Name Role Phone Braydon Pavon Primary Care Provider [phone] Reason for Visit * Reason Comments Cirrhosis * Evaluate & Treat (Routine) - Closed Specialty Diagnoses / Procedures Referred By Jordan casillas Referred To Contact Gastroenterology Diagnoses End stage liver disease (HCC) end stage liver disease Procedures [facility] OFFICE/OUTPT VISIT,JILLIAN ZAMORA IV, James, PA [address] [place] [address] Aleksandr Fink MD [address] [place] [address] Referral ID Status Reason Start Date Expiration Date Visits Re quested Visits Authorized [id number] Closed 05/19/2018 11/15/2018 1 1 Encounter Details Date Type Department Care Team (Late st Contact Info) Description 06/02/2018 11:00 AM BLOOD BANK CREDIT CLERK Office Visit [facility] - [address] [place] [phone] Aleksandr Fink MD [facility] [place] [address] 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 [...] Comments Blood Pressure 146/78 06/02/2018 11:01 AM BLOOD BANK CREDIT CLERK Pulse 100 06/02/2018 11:01 AM BLOOD BANK CREDIT CLERK Temperature 36.7 ??C (98 ??F) 06/02/2018 11:01 AM BLOOD BANK CREDIT CLERK Respiratory Rate - - Oxygen Saturation 98% 06/02/2018 11:01 AM BLOOD BANK CREDIT CLERK Inhaled Oxygen Concentration - - Weight 124.3 kg (274 lb) 06/02/2018 11:01 AM BLOOD BANK CREDIT CLERK Height 172.7 cm (5' 8 ) 06/02/2018 11:01 AM BLOOD BANK CREDIT CLERK Body Mass Index 41.66 06/02/2018 11:01 AM BLOOD BANK CREDIT CLERK documented in this encounter Patient Instructions * Patient Instructions* Olivia Fink MD - 06/02/2018 11:56 AM BLOOD BANK CREDIT CLERK You should talk to PCP about pneumonia vaccine You are scheduled for a(n) U/S at Outpatient Services on 06-10-2018, at 08:00 A.M. Please arrive at07:30 A.M. Do not eat or drink 6 HOURS before your procedure. Outpatient Services at [facility] is an outpatient diagnostic and treatment center dedicated to one simple goal: superior customer service. Our latest innovation in same-day healthcare services extends beyond sophisticated and advanced equipment. Address to Outpatient Servics: [address] [place] [address] Park in Outpatient Service Parking Lot and enter side of building. Please remember to bring you insurance card(s) and a form of photo identification such as a van cdl driver's license. *If you have any questions, concerns or need to cancel and reschedule please call the scheduling department at [phone]. D BANK CREDIT CLERK documented in this encounter Progress Notes * Olivia Fink MD - 06/02/2018 11:35 AM CST Images from the original note were not included. Hepatology clinic new patient visit: Subjective: 47 y.o. yo pt with Cirrhosis. Referring physician: Dr. Braydon Pavon PA Chief Complaint Patient presents with ??? Cirrhosis Pt was following with [facility], he cant follow up with them as [...] TBILI, DBILI, TPROT, EGFR in the last 20046 hours. No results for input(s): WBC, HGB, HCT, PLTCOUNT in the last 05496 hours. No results for input(s): INR in the last 95414 hours. No results for input(s): AFP in the last 88228 hours. Invalid input(s): ALPHA-FETOPROTEIN INR: 1.2 Hepatitis [...] physician Division of Hepatology June 02, 2018 D BANK CREDIT CLERK documented in this encounter Plan of Treatment Upcoming Encounters Date Type Department Care Team (Late st Contact Info) Description 02/17/2024 11:59 PM CDT Anesthesia Event [facility] MRI [address] [place] [phone] Pushpa Frey DO [address] [facility] [address] [phone] 05/20/2024 12:30 PM BLOOD BANK CREDIT CLERK Appointment [facility] MRI [address] [place] [phone] Steve Bedolla MD [address] [place] [phone] Scheduled Orders Name Type Priority Associated Diagnoses [...] (HCC) documented in this encounter Care Teams Duplicating Machine Operator Relationship Specialty Start Date End Date Braydon Pavon PA [address] [place] [address] PCP - General Physician Fiberglass Ski Maker 05/19/18 10/03/18 documented as of this encounter
--- OUTSIDE RECORDS SUMMARY | 2024-05-08 06:51 | XMS_ITS | Clinical Summary ---
Author Organization [facility] Address [address] [place] [address]. [place] [address] [place] [address] Care Team Providers Care Tool And Die Repair Name Role Phone Braydon Pavon Primary Care Provider Allergies Active Allergy Reactions Criticality Noted Date [...] (two) times daily. Active vitamin D2, ergocalciferol, 80585 UNITS capsule Take 50,000 Units by mouth every 30 (thirty) days. Active Insulin Pen Needle (PEN NEEDLES) 32G X 4 MM Misc Inject 3 times daily 0 Active ONE TOUCH ULTRA TEST STRIPS test stripIndications:Ty pe 2 diabetes mellitus with hyperglycemia, with long-term current use of insulin ([facility]) Test 4 times daily 200 strip 11 [...] long-term current use of insulin ([facility]) Inject 0.4 mLs (200 Units total) into the skin 3 (three) times daily before meals. 18 mL 11 4 Active Continuous Glucose Sensor (DEXCOM G7 SENSOR) MiscIndications:Typ e 2 diabetes mellitus with hyperglycemia, with long-term current use of insulin ([facility]) CHANGE SENSOR EVERY 10 DAYS 3 each 11 4 Active Active Problems Problem Noted Date Diagnosed Date Lumbar degenerative disc disease 05/23/2019 Essential hypertension 07/21/2018 Diabetes mellitus, type 2 ([facility]) 06/2017 Morbid obesity ([facility]) 12/09/2016 TRACY (obstructive sleep apnea) 09/14/2016 Thrombocytopenia 09/14/2016 Esophageal varices ([facility]) 09/09/2016 Hepatic encephalopathy ([facility]) 017 Type 2 diabetes mellitus wit h hyperglycemia, with long-term current use of insulin ([facility]) 09/09/2016 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 ([facility]) 08/28/2015 Overview (04/05/2019): Last Assessment & [...] Type Department Care Team Description 03/30/2024 Telephone [facility] Diabetes and Endocrinology [address] [phone] Eva Power MD Reschedule 03/01/2024 Telephone [facility] Diabetes and Endocrinology [address] [phone] Eva Power MD Refill Request (NEEDS PA ON DEXCOM G7 SENSOR REFILL) 02/19/2024 Telephone [facility] Diabetes and Endocrinology [address] [phone] Eva Power MD Callback; Medication Problem 02/15/2024 2:00 PM CDT Office Visit [facility] Diabetes and Endocrinology [address] [phone] Eva Power MD Type 2 [...] st Contact Info) Description 05/10/2024 11:40 AM ASSISTANT BRAND MANAGER Office Visit [facility] Diabetes and Endocrinology - [address] [phone] Eva Power MD [address] [place] [address] Health Maintenance Due Date Last Done [...] this topic Medical Devices Implanted Type Area Pinking Sewing Machine Operator Device Identifier Shelf Expiration Date Model / Serial / Lot [employer] Stent-01/02/2021 Implanted: 021 (Quantity not on file) Stent Abdomen [employer] BARD [id number] / / Description:Non-clinical silvia ting demonstrated that [...] of 720 Gauss/cm or less ?? Maximum witse-cmlt-vtffgfmh specific absorption rate (IVANA) of 2-W/kg for 15 minutes of scanning for patient landmarks above the umbilicus. ?? Maximum WB-IVANA of 1 W/kg for 15 min. of scanning for patient landmarks below the umbilicus. Procedures Procedure Name Priority Date/Time Associated Diagnosis Comments HEMOGLOBIN, GLYCOSYLATED Routine 04/05/2019 Type 2 diabetes mellitus with hyperglycemia, with long-term current use of insulin ([facility]) from Last 3 Months or Most Recently Relevant to Health Maintenance Results * HEMOGLOBIN, GLYCOSYLATED (04/05/2019) HGB A1C 10.[address] [place] 04/05/2019 us Eva Power MD LABORATORY Final Result [address] [place] [address] [employer] [place], [place] [address] [phone] from Last 3 Months or Most Recently Relevant to Health Maintenance Insurance T Care Teams Tool And Die Repair Relationship Specialty Start Date End Date Braydon Pavno PA [address] [place] [address] PCP - General PHYSICIAN RECEPTIONIST NURSE 03/02/19
--- OUTSIDE RECORDS SUMMARY | 2024-05-08 06:51 | XMS_ITS | Encounter Summary ---
Author Organization [facility] Address [facility] [place] [address] Care Team Providers Care Wire Twisting Machine Operator Name Role Phone Braydon Pavon Primary Care Provider [phone] Reason for Visit * Auth/Cert (Routine) Specialty Diagnoses / Procedures Referred By Contac t Referred To Contact Diagnoses Cirrhosis of liver without ascites, unspecified hepatic cirrhosis type (HCC) Procedures [facility] EGD FLEX TRANSORAL DX EGD w/ agbim ESOPHAGOGASTRODUODENOSCOPY (EGD) DIAGNOSTIC Referral ID Status Reason Start Date Expiration Date Visits Re quested Visits Authorized [id number] 1 1 Encounter Details Date Type Department Care Team (Late st Contact Info) Description 02/12/2024 1:52 PM CDT Anesthesia Event [facility] ENDOSCOPY [address] [place] [address] [place] [address] [place] [phone] Catherine Lopez MD [address] [place] [address] Anesthesia Record Procedure Summary Procedure Name Responsible [...] Anesthetic Plan was discussed with the anesthesiologist seismic survey assistant and PUMP SERVICER. Overall additional findings/comments: Blood sugar elevated, insulin [...] Laterality Date ENDOSCOPY, UPPER IR TIPS PROCEDURE EMERGENCY MEDICAL TECH Status: No LMP for male patient. unknown [...] Anesthesia Event [facility] MRI [address] [place] [phone] Pushpa Frey DO [address] [facility] [address] [phone] 05/20/2024 12:30 PM APPLICATIONS MANAGER Appointment [facility] MRI [address] [place] [phone] Steve Bedolla MD [address] [place] [phone] documented as of this encounter Goals Goal [...] mg documented in this encounter Care Teams Wire Twisting Machine Operator Relationship Specialty Start Date End Date Braydon Pavon PA [address] [place] [address] PCP - General Physician Program Officer 07/14/23 documented as of this encounter
--- OUTSIDE RECORDS SUMMARY | 2024-05-08 06:51 | XMS_ITS | Encounter Summary ---
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) Procedures US TIPS W ABDOMEN LIMITED Unlnegro, Ordering ProviderMD Referral ID Status Reason Start Date Expiration Date Visits Re quested Visits Authorized [id number] Closed 02/17/2023 02/17/2024 1 1 Reason for Visit * Radiology Services (Routine) - Closed Specialty Diagnoses / Procedures Referred By Contac t Referred To Contact Ultrasound Diagnoses 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) Procedures US TIPS W ABDOMEN LIMITED Elvira, Ordering ProviderMD Referral ID Status Reason Start Date Expiration Date Visits Re quested Visits Authorized [id number] Closed 02/17/2023 02/17/2024 1 1 Encounter Details Date Type Department Care Team (Latest Contact Info) Description 03/04/2023 8:38 AM CDT - 03/04/2023 11:59 PM CDT Hospital Encounter [address] [address] Discharge Disposition: Home or Self Care Social [...] [facility] [address] [place] [phone] Pushpa Frey DO [address] [facility] DEPT [address] [phone] 05/20/2024 12:30 PM PICKING TABLE WORKER Appointment [facility] MRI [address] [place] [phone] Steve Bedolla MD [address] [place] [address] documented as of this encounter [...] protocol. Report dictated by Robert Faustin MD, (vice president of compliance). I, Ana Gardner MD have personally reviewed and interpreted this examination/study. > Interpreting Provider: Ana Gardner MD on 03/04/2023 2:12 PM Narrative 03/04/2023 2:12 PM CDT PROCEDURE: ??US TIPS W ABDOMEN LIMITED, DATE/TIME OF EXAM: ??03/04/2023 8:38 AM, LOCATION ??[facility] INDICATION: K75.81: Liver cirrhosis secondary [...] LIMITED, DATE/TIME OF EXAM: 38:38 AM, LOCATION [facility] INDICATION: K75.81: Liver cirrhosis secondary [...] protocol. Report dictated by Robert Faustin MD, (vice president of compliance). I, Ana Gardner MD have personally reviewed and interpreted this examination/study. 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
--- OUTSIDE RECORDS SUMMARY | 2024-05-08 06:51 | XMS_ITS | Encounter Summary ---
Author Organization [facility] Address [address] [place], [place] [address] [address] Care Team Providers Care Securities And Real Estate Director Name Role Phone Braydon Pavon Primary Care Provider [phone] Reason for Visit * Reason Comments Gas Letter Encounter Details Date Type Department Care Team (Late st Contact Info) Description 08/11/2018 Telephone [facility] [address] [place] [address] Karlene Joaquin, RN Gas; Letter [...] 02/17/2024 11:59 PM CDT Anesthesia Event [facility] MRI [address] [place] [phone] Pushpa Frey DO [address] [facility] DEPT [address] [phone] 05/20/2024 12:30 PM EMERGENCY MANAGER Appointment [facility] MRI [address] [place] [phone] Steve Bedolla MD [address] [place] [address] documented as of this encounter Visit Diagnoses Not on filedocumented in this encounter Care Teams Securities And Real Estate Director Relationship Specialty Start Date End Date Braydon Pavon PA [address] [place] [address] PCP - General Physician Income Tax Investigator 05/19/18 10/03/18 documented as of this encounter
--- OUTSIDE RECORDS SUMMARY | 2024-05-08 06:51 | XMS_ITS | Encounter Summary ---
Author Organization [facility] Address [facility] [place] [address] Care Team Providers Care Farmer Tree Fruit [employer] Nut Crops Name Role Phone Nikolay Lancaster MD Primary Care Provider [phone] Reason for Visit * Reason Comments Establish Care Pain with urination Encounter Details Date Type Department Care Team (Late st Contact Info) Description 10/04/2018 1:00 PM CDT Office Visit [facility] [address] [place] [address] Trice Blankenship, MICROBIOLOGY PROFESSOR-CLERICAL SUPERVISOR [address] [place] [address] Dysuria (Primary Dx); Nocturia; Lower [...] Patient Instructions * Patient Instructions* Trice Blankenship APRN-CLERICAL SUPERVISOR - 10/04/2018 1:58 PM CDT Seek medical [...] specialist, such as a urologist or a travel rn or. You may need medicines tohelp treat a [...] refuse treatment. The above information is an food preparation kitchen aide only. It is not intended as medical advice for individual conditions or treatments. Talk to your doctor, nurse or pharmacist before following any medical regimen to see if it is safe and effective for you. ?? Copyright [employer] 2019 Information is for End User's use only and may not be sold, redistributed or otherwise used for commercial purposes. All illustrations and images included in CareNotes?? are the copyrighted property of [employer] or [employer] Polyuria WHAT YOU NEED TO KNOW: What [...] refuse treatment. The above information is an food preparation kitchen aide only. It is not intended as medical advice for individual conditions or treatments. Talk to your doctor, nurse or pharmacist before following any medical regimen to see if it is safe and effective for you. ?? Copyright [employer] 2019 Information is for End User's use only and may not be sold, redistributed or otherwise used for commercial purposes. All illustrations and images included in CareNotes?? are the copyrighted property of [employer] or [employer] documented in this encounter Progress Notes * Trice Blankenship APRN-CNP - 10/04/2018 2:19 PM CDT [facility] Division of Urologic Surgery BRADLEY Haney Date of Visit: 10/04/2018 Patient Name: Camilo Curry : 1970 Medical Record: [id number] Contact (home) Age: [age] year old Sex: male Referring Physician: Nikolay Lancaster MD [address] [place] [address] Chief Complaint: Chief Complaint Patient presents with [...] ??? ondansetron (ZOFRAN) 4 MG tablet ??? vivioUCH ULTRA TEST STRIPS test strip Use 1 [...] POCT neg Ketones UA POCT trace Specific [place] UA 1.020 Blood Urine POCT neg pH [...] Description 02/17/2024 11:59 PM CDT Anesthesia Event [facility] MRI [address] [place] [phone] Pushpa Frey DO [address] [facility] DEPT [address] [phone] 05/20/2024 12:30 PM POLICE COMMUNICATIONS OPERATOR Appointment [facility] MRI [address] [place] [phone] Steve Bedolla MD [address] [place] [phone] Scheduled Orders Name Type Priority Associated Diagnoses [...] POCT neg Ketones UA POCT trace Specific [place] UA 1.020 Blood Urine POCT neg pH UA 6.0 Protein UA neg Urobilinogen UA 1 Nitrite UA neg WBC UA neg Urine URINE / Unknown 10/04/2018 1 :23 PM CDT Trice Blankenship MICROBIOLOGY PROFESSOR-CLERICAL SUPERVISOR LAB - POINT OF C ARE ORDERABLES documented in this encounter Visit Diagnoses Diagnosis Dysuria- Primary Nocturia Lower urinary tract symptoms (LUTS) Other symptoms involving urinary system documented in this encounter Care Teams Farmer [employer] Relationship Specialty Start Date End Date Nikolay Lancaster MD [address] [place] [address] PCP - General 10/04/18 07/13/23 documented as of this encounter
--- OUTSIDE RECORDS SUMMARY | 2024-05-08 06:51 | XMS_ITS | Encounter Summary ---
Author Organization [facility] Address [facility] [facility] [place] [address] Care Team Providers Care Office Administrative Assistant Name Role Phone Braydon Pavon Primary Care Provider [phone] Encounter Details Date Type Department Care Team [...] Description 02/17/2024 11:59 PM CDT Anesthesia Event [facility] MRI [address] [place] [phone] Pushpa Frey DO [address] [facility] [address] [phone] 05/20/2024 12:30 PM WELD ENGINEER Appointment [facility] MRI [address] [place] [phone] Steve Bedolla MD [address] [place] [address] documented as of this encounter Goals Goal [...] on filedocumented in this encounter Care Teams Office Administrative Assistant Relationship Specialty Start Date End Date Braydon Pvaon PA [address] [place] [address] PCP - General Physician Rand Tacker 07/14/23 documented as of this encounter
--- OUTSIDE RECORDS SUMMARY | 2024-05-08 06:51 | XMS_ITS | Encounter Summary ---
Author Organization [facility] Address [address] [facility] [place] [address] Care Team Providers Care Registered Radiologic Technologist Name Role Phone Braydon Pavon Primary Care Provider [phone] Encounter Details Date Type Department Care Team [...] Description 02/17/2024 11:59 PM CDT Anesthesia Event [facility] MRI [address] [place] [phone] Pushpa Frey, DO [address] [facility] [address] [phone] 05/20/2024 12:30 PM BIRD RAISER Appointment [facility] MRI [address] [place] [address] Setve Bedolla MD [address] [place] [address] documented as of this encounter [...] on filedocumented in this encounter Care Teams Registered Radiologic Technologist Relationship Specialty Start Date End Date Braydon Pavon PA [address] [place] [address] PCP - General Physician Food Runner 07/14/23 documented as of this encounter
--- OUTSIDE RECORDS SUMMARY | 2024-05-08 06:51 | XMS_ITS | Encounter Summary ---
Author Organization [facility] Address [address] [place] [address]. [place] [address] [place] [address] Care Team Providers Care Shipping Assistant Name Role Phone Braydon Pavon Primary Care Provider [phone] Reason for Visit * Reason Onset Date Comments Callback 02/19/2024 Medication Problem 02/19/2024 Encounter Details Date Type Department Care Team (Late st Contact Info) Description 02/19/2024 Telephone [facility] Diabetes and Endocrinology - [place] [address] [place] [address] Paul Chanel MD [address] [place] [address] Callback; Medication Problem Social History Tobacco [...] Voiced understanding. Patient is going to come warehouse picker sample it security architect in the next week. * Paul Chanel [...] Curry Mane Facility name: Call back/ext. #: [phone] Call details: Patient cannot take metformin it is messing with his stomach. And he does not believes that his insulin is not a high enough dose. Needing to speak with a nurse to make sure his math is correct Dexcom G7 it security architect is not working and he is requesting a new one. documented in this encounter Plan of Treatment Upcoming Encounters Date Type Department Care Team (Late st Contact Info) Description 05/10/2024 11:40 AM LITIGATION LEGAL ASSISTANT Office Visit [facility] Medical [facility] Diabetes and Endocrinology - [address] [address] Paul Chanel MD [address] [place] [address] documented as of this encounter Visit Diagnoses Diagnosis Type 2 diabetes mellitus with hyperglycemia, with long-term current use of insulin ([facility]) documented in this encounter Care Teams Shipping Assistant Relationship Specialty Start Date End Date Braydon Pavon PA [address] [place] [address] PCP - General PHYSICIAN PATIENT TRANSPORTATION DRIVER 03/02/19 documented as of this encounter
--- OUTSIDE RECORDS SUMMARY | 2024-05-08 06:51 | XMS_ITS | Encounter Summary ---
Author Organization [facility] Address [address] [place] [address]. [place] [address] [place] [address] Care Team Providers Care Java Developer Analyst Name Role Phone Braydon Pavon Primary Care Provider [phone] Reason for Visit * Reason Onset Date Comments Reschedule 03/30/2024 Encounter Details Date Type Department Care Team (Late st Contact Info) Description 03/30/2024 Telephone [facility] Medical Group Diabetes and Endocrinology - [address] [address] Eva Power MD [address] [place] [address] Reschedule Social History Tobacco Use Types [...] Caller name: Mayra, Spouse Call back/ext. #: [phone] Call details: Rescheduled Appt: Previous Date: 05/20/2024 Fri 1:40 pm New Date: 05/10/2024 Tu 11:40 am KELLING INSTRUCTOR documented in this encounter Plan of Treatment Upcoming Encounters Date Type Department Care Team (Late st Contact Info) Description 05/10/2024 11:40 AM SNORKELLING INSTRUCTOR Office Visit [facility] Medical Group Diabetes and Endocrinology - [address] [phone] Eva Power MD [address] [place] [address] documented as of this encounter Visit Diagnoses Not on filedocumented in this encounter Care Teams Java Developer Analyst Relationship Specialty Start Date End Date Braydon Pavon PA [address] [place] [address] PCP - General PHYSICIAN ORTHOTIST 03/02/19 documented as of this encounter
--- OUTSIDE RECORDS SUMMARY | 2024-05-08 06:51 | XMS_ITS | Clinical Summary ---
Author Organization [facility] [email or web address] Address [address] [facility] [place] [address] Care Team Providers Care Bog Cutter Name Role Phone Braydon Pavon Primary Care Provider Source Comments [facility],non-owned Affiliates and Associated Physician Practices is amultiple site organization consisting of ambulatory clinics and hospital sitesin [place], [place], [place] and [place]. This disclosure is being madepursuant to the Care Everywhere program and may not contain all information available regarding this patient. Last updated 18.[facility] [email or web address] Allergies Active Allergy Reactions Criticality Noted Date [...] CDT - 02/12/2024 4:30 PM CDT Surgery [facility] [address] [place] [phone] Gaby Mistry MD EGD w/ agbim 02/12/2024 1:52 PM CDT Anesthesia Event [facility] [address] [place] [phone] Rangrass, MD Emmett Barros Amrita, MD 02/12/2024 11:04 AM CDT - 02/12/2024 2:45 PM CDT Hospital Encounter [facility] [address] [place] [phone] Steve Bedolla MD Surgery General Discharge Disposition: [...] 02/17/2024 11:59 PM CDT Anesthesia Event [facility] [address] [place] [phone] Pushpa Frey, DO [address] [phone] 05/20/2024 12:30 PM 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 --- Professional --- ? 25744, Esophagogastroduo denoscopy, flexible, transoral; diagnostic, ? including collection of specimen(s) by brushing or washing, when ? performed (separate procedure) Diagnosis Code(s): ?--- Professional --- ?I85.00, Esophageal varices without bleeding ?K22.89, Other specified disease of esophagus ?K76.6, Portal hypertension ?K31.89, Other diseases of stomach and duodenum ?K31.7, Polyp of stomach and duodenum CPT copyright 2021 [employer]. All rights reserved. The codes documented in this report are preliminary and upon combine driver review may be revised to meet current compliance requirements. Gaby Mistry MD 02/12/2024 2:13:14 PM This report has been signed electronically. Note Initiated On: 02/12/2024 1:40 PM Number of Addenda: 0 ? [facility] ? [address] PROVATION 02/12/2024 1:40 PM CDT Gaby Mistry MD GI PROCEDURE ORDERAB LES [facility] * (ABNORMAL) GLUCOSE - POINT OF CARE (02/12/2024 1:17 PM CDT) Only the most recent of2 resultswithin the time period is included. Glucose WB/POC 277(H) 70 - 115 mg/dL 02/12/2024 1:18 PM CDT [facility] Specimen Type Cap Fingerstick 2023 1:18 PM CDT [facility] Blood BLOOD SPECIMEN / Unknown 02/12/2024 1:17 PM CDT 02/12/2024 1:18 PM CDT Steve Bedolla MD LAB - POINT OF CARE ORDERABLES Performing Organization Address City/[facility]/ZIP Co de Phone Number [facility] [address] [place] [address], [place] [phone] * (ABNORMAL) COMPREHENSIVE METABOLIC PANEL (12/29/2023 1:12 PM CDT) BUN 13 7 - 26 mg/dL 12/29/2023 2:07 PM T [facility] Creatinine 0.73 0.71 - 1.16 mg/dL 12/29/2023 2:07 PM [facility] Sodium 138 136 - 145 mmol/L 12/29/2023 2:07 PM [facility] Potassium 4.8(H) 3.5 - 4.5 mmol/L 12/29/2023 2:07 PM [facility] Chloride 105 98 - 107 mmol/L 12/29/2023 2:07 PM [facility] CO2 25 22 - 29 mmol/L 12/29/2023 2:07 PM T [facility] Glucose 362(H) 70 - 115 mg/dL 12/29/2023 2:07 PM [facility] Calcium 9.8 8.4 - 10.2 mg/dL 12/29/2023 2:07 PM [facility] Protein Total 7.0 6.0 - 8.3 g/dL 12/29/2023 2:07 PM [facility] Albumin 3.7 3.4 - 5.0 g/dL 12/29/2023 2:07 PM [facility] Bilirubin Total 3.2(H) 0.2 - 1.2 mg/dL 12/29/2023 2:07 PM [facility] Alkaline Phosphatase 89 40 - 150 U/L 12/29/2023 2:07 PM [facility] ALT 16 5 - 55 U/L 12/29/2023 2:07 PM [facility] AST 23 5 - 34 U/L 12/29/2023 2:07 PM [facility] Anion Gap 8 6 - 16 12/29/2023 2:07 PM [facility] BUN/Creatinine Ratio 18 7 - 23 12/29/2023 2:07 PM [facility] Osmolality Calculated 301(H) 275 - 295 mOsm/kg 12/29/2023 2:07 PM [facility] Albumin/Globulin Ratio 1.1 1.1 - 2.3 12/29/2023 2:07 PM [facility] eGFR by CKD-EPI >90 >=90 mL/min/1.7 3 m2 12/29/2023 2:07 PM [facility] Blood BLOOD SPECIMEN / Unknown Lab Venipuncture / Unknown 12/29/2023 1:12 PM CDT 12/29/2023 1:37 PM T Steve Bedolla MD LAB - CHEMISTRY LIONEL WHITT [facility] Organization Address City/State/ZIP Co de Phone Number [facility] [address] [place] [address], [facility] [phone] * HEMOGLOBIN A1C - POINT OF CARE (AMB) U (05/24/2018) Hemoglobin A1c POCT 8.2 BLOOD SPECIMEN / Unknown 05/24/2018 Edmond Choi MD LAB - POINT OF CARE ORDERABLES from Last 3 Months or Most Recently Relevant to Health Maintenance Care Teams Bog Cutter Relationship Specialty Start Date End Date Braydon Pavon PA [address] [place] [address] PCP - General Physician Division Operations Manager 07/14/23
--- OUTSIDE RECORDS SUMMARY | 2024-05-08 06:51 | XMS_ITS | Encounter Summary ---
Author Organization [facility] Address [address] [address] Care Team Providers Care Proof Machine Operator Name Role Phone Braydon Pavon Primary Care Provider [phone] Reason for Visit * Auth/Cert (Routine) Specialty Diagnoses / Procedures Referred By Contac t Referred To Contact Diagnoses Cirrhosis of liver without ascites, unspecified hepatic cirrhosis type (HCC) Procedures [place] ED EGD FLEX TRANSORAL DX EGD w/ agbim ESOPHAGOGASTRODUODENOSCOPY (EGD) DIAGNOSTIC Referral ID Status Reason Start Date Expiration Date Visits Re quested Visits Authorized [id number] 1 1 Encounter Details Date Type Department Care Team (Late st Contact Info) Description 02/12/2024 4:00 PM CDT - 02/12/2024 4:30 PM CDT Surgery [facility] ENDOSCOPY [address] [place] [address] Gaby Mistry MD [address] [place] [address] EGD w/ agbim Surgery Details Date/Time Status Location OR Service Patient Class Case Class Case Type Trauma Case? 02/12/2024 4:00 PM Posted [facility] Endoscopy ENDO 1 Gastroenterology Surgery Day Care Elective > 5 days Panel 1 Procedure LRB Anes Op Region Wound Class Comments EGD w/ agbim N/A MAC Esophagus NA irregular z-line PHG two small gastric polyps small esophageal varices Surgeon Surgeon Role Service Panel Gaby Mistry MD Primary Gastroenterology 1 Special Needs Message Received: Yesterday Agbim, Steve A, MD P [facility] Schedulers - Endoscopy Pool Please set [...] ask them during your visits. ?? Copyright [employer] 2020 Information is for End User's use only and may not be sold, redistributed or otherwise used for commercial purposes. All illustrations and images included in CareNotes?? are the copyrighted property of [employer]. or [employer] The above information is an psychiatric aide only. It is not intended as [...] file Social History Narrative Disabled. 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 [employer] Social Determinants of Health Financial Resource Strain: [...] to engaging gainful employment for short or fpc and even leading to permanent disability and/or [...] changes Gaby Mistry MD Gastroenterology & Hepatology [facility] documented in this encounter Plan of Treatment Upcoming Encounters Date Type Department Care Team (Late st Contact Info) Description 02/17/2024 11:59 PM CDT Anesthesia Event [facility] [address] [place] [address] Pushpa Frey, DO [address] [id number] 05/20/2024 12:30 PM [facility] Appointment [facility] MRI [address] [place] [address] Steve Bedolla MD [address] [place] [address] documented as of this encounter [...] Procedure Name Priority Date/Time Associated Diagnosis Comments [place] ED EGD FLEX TRANSORAL DX 02/12/2024 1:47 PM CDT Cirrhosis of liver without ascites, unspecified hepatic cirrhosis type (HCC) Special Needs Message Received: Yesterday Steve Bedolla MD P [facility] Schedulers - Endoscopy Pool Please set [...] White _ Providers: ?Gaby Mistry MD, Tyree Ramriez (Fellow) Referring MD: ? Braydon Pavon (Referring [...] Procedure Code(s): ? --- Professional --- ? 44705, Esophagogastroduo denoscopy, flexible, transoral; diagnostic, ? including collection of specimen(s) by brushing or washing, when ? performed (separate procedure) Diagnosis Code(s): ?--- Professional --- ?I85.00, Esophageal varices without bleeding ?K22.89, Other specified disease of esophagus ?K76.6, Portal hypertension ?K31.89, Other diseases of stomach and duodenum ?K31.7, Polyp of stomach and duodenum CPT copyright 2021 [employer]. All rights reserved. The codes documented in this report are preliminary and upon orthopedic coder review may be revised to meet current compliance requirements. Gaby Mistry MD 02/12/2024 2:13:14 PM This report has been signed electronically. Note Initiated On: 02/12/2024 1:40 PM Number of Addenda: 0 ? [facility] ? [address] [place] [address] [facility] 02/12/2024 1:40 PM CDT Gaby Mistry MD GI PROCEDURE ORDERAB LES Performing Organization Address [facility]/ZIP Co de Phone Number [facility] * (ABNORMAL) GLUCOSE - POINT OF CARE (02/12/2024 1:17 PM CDT) Glucose WB/POC 277(H) 70 - 115 mg/dL 02/12/2024 1:18 PM CDT [facility] Specimen Type Cap Fingerstick 2023 1:18 PM CDT [facility] Blood BLOOD SPECIMEN / Unknown 02/12/2024 1:17 PM CDT 02/12/2024 1:18 PM CDT Steve Bedolla MD LAB - POINT OF CARE ORDERABLES Performing Organization Address [facility] Co de Phone Number [facility] [address] [place] [address], [place] [phone] * (ABNORMAL) GLUCOSE - POINT OF CARE (02/12/2024 11:47 AM CDT) Glucose WB/POC 342(H) 70 - 115 mg/dL 02/12/2024 11:49 AM CDT [facility] Specimen Type Venous 02/12/2024 11:49 AM CDT [facility] Blood BLOOD SPECIMEN / Unknown 02/12/2024 11:47 AM CDT 02/12/2024 11:49 AM CDT Steve Bedolla MD LAB - POINT OF CARE ORDERABLES Performing Organization Address [facility]/ZIP Co de Phone Number [facility] [address] [place] [address], [place] [phone] documented in this encounter Visit Diagnoses Diagnosis [...] RN) documented in this encounter Care Teams Proof Machine Operator Relationship Specialty Start Date End Date Braydon Pavon PA [address] [place] [address] PCP - General Physician Milk Collector 07/14/23 documented as of this encounter
--- OUTSIDE RECORDS SUMMARY | 2024-05-08 06:51 | XMS_ITS | Patient Health Summary ---
Author Organization [facility] Address [address] [place] [address] Care Team Providers Care Science Faculty Member Name Role Phone Braydon Pavon Primary Care Provider [phone] Note from [facility],non-owned Affiliates and Associated Physician Practices is amultiple site organization consisting of ambulatory clinics and hospital sitesin [place], [place], [place] and [place]. This disclosure is being madepursuant to the Care Everywhere program and may not contain all information available regarding this patient. Last updated 18.[facility] Allergies * Aztreonam In Dextrose(Urticaria) -Medium Criticality [...] 33.6 02/16/2024 1:51 PM CDT Procedures * [place] ED EGD FLEX TRANSORAL DX(Performed 02/12/2024) Performed [...] (transjugular intrahepatic portosystemic shunt), Fatty liver * [id number] BLOOD(Performed 07/14/2023) Performed for Cirrhosis of liver [...] Procedure Code(s): ? --- Professional --- ? 62713, Esophagogastroduo denoscopy, flexible, transoral; diagnostic, ? including collection of specimen(s) by brushing or washing, when ? performed (separate procedure) Diagnosis Code(s): ?--- Professional --- ?I85.00, Esophageal varices without bleeding ?K22.89, Other specified disease of esophagus ?K76.6, Portal hypertension ?K31.89, Other diseases of stomach and duodenum ?K31.7, Polyp of stomach and duodenum CPT copyright 2021 [employer]. All rights reserved. The codes documented in this report are preliminary and upon concrete paver review may be revised to meet current compliance requirements. Gaby Mistry MD 02/12/2024 2:13:14 PM This report has been signed electronically. Note Initiated On: 02/12/2024 1:40 PM Number of Addenda: 0 ? [facility] ? [address] 02/12/2024 1:40 PM CDT Gaby Mistry MD GI PROCEDURE ORDERAB LES [facility] * (ABNORMAL) GLUCOSE - POINT OF CARE (02/12/2024 1:17 PM CDT) Only the most recent of2 resultswithin the time period is included. Glucose WB/POC 277(H) 70 - 115 mg/dL 02/12/2024 1:18 PM CDT [facility] Specimen Type Cap Fingerstick 2023 1:18 PM CDT [facility] Blood BLOOD SPECIMEN / Unknown 02/12/2024 1:17 PM CDT 02/12/2024 1:18 PM CDT Steve Bedolla MD LAB - POINT OF CARE ORDERABLES Performing Organization Address City/[facility] Co de Phone Number [address] [address], [facility] [phone] * PT-INR [facility] (12/29/2023 1:12 PM CDT) Only the most recent of2 resultswithin the time period is included. Pathologist [facility] PT 13.9 12.1 - 14.8 Seconds 12/29/2023 2:29 PM CDT [facility] INR 1.1 See Comment 12/29/2023 2:29 PM CDT [facility] Comment:The suggested therap eutic range for standard coumadin (warfarin) therapy is an INR of 2.0-3.0. For high-risk patients (Mechanical Mitral Valve Prosthesis, etc.), the suggested prophylactic therapeutic range is an INR of 2.5-3.5. Blood BLOOD SPECIMEN / Unknown Lab Venipuncture / Unknown 12/29/2023 1:12 PM CDT 12/29/2023 1:26 PM CDT Steve Bedolla MD LAB - COAGULATION OR DERABLES Performing Organization Address City/[facility] Co de Phone Number [address] [address], [facility] [phone] * ALPHA FETOPROTEIN BLOOD TUMOR MARKER (12/29/2023 1:12 PM CDT) Only the most recent of2 resultswithin the time period is included. Pathologist [facility] Alpha-Fetoprote in Tumor Marker 2.2 <=8.3 ng/mL 12/29/2023 2:22 PM CDT [facility] Comment: AFP values will vary depending on testing procedure used. Results are not comparable across different methods. AFP values obtained by [facility] using an Phoenix Alinity Immunoassay. Blood BLOOD SPECIMEN / Unknown Lab Venipuncture / Unknown 12/29/2023 1:12 PM CDT 12/29/2023 1:36 PM CDT Steve Bedolla MD LAB - CHEMISTRY LIONEL WHITT [facility] Organization Address City/State/ZIP Co de Phone Number [facility] [address] [place] [address], [facility] [phone] * (ABNORMAL) CBC WITH DIFFERENTIAL (12/29/2023 1:12 PM CDT) Only the most recent of2 resultswithin the time period is included. WBC 4.2 4.0 - 10.7 x10E9/L 12/29/2023 1:52 PM [facility] RBC Count 5.58 4.30 - 5.80 x10E12/L 12/29/2023 1:52 PM [facility] Hemoglobin 15.8 13.3 - 17.5 g/dL 12/29/2023 1:52 PM [facility] Hematocrit 44.7 38.7 - 51.1 % 12/29/2023 1:52 PM [facility] MCV 80.1 80.0 - 98.0 fL 12/29/2023 1:52 PM [facility] MCH 28.3 26.7 - 33.6 pg 12/29/2023 1:52 PM [facility] MCHC 35.3 31.7 - 36.3 g/dL 12/29/2023 1:52 PM [facility] RDW-CV 18.2(H) 11.3 - 14.8 % 12/29/2023 1:52 PM [facility] Platelet Count 84(L) 150 - 420 x10E9/L 12/29/2023 1:52 PM [facility] MPV 10.0 7.8 - 11.4 fL 12/29/2023 1:52 PM [facility] Neutrophil % 68.4 41.0 - 74.0 % 12/29/2023 1:52 PM [facility] Lymphocyte % 17.5 17.0 - 47.0 % 12/29/2023 1:52 PM CDT [facility] Monocyte % 9.2 3.0 - 11.0 % 12/29/2023 1:52 PM T [facility] Eosinophil % 3.5 0.0 - 7.0 % 12/29/2023 1:52 PM T [facility] Basophil % 1.2 0.0 - 1.6 % 12/29/2023 1:52 PM T [facility] Immature Granulocytes % 0.2 0.0 - 1.0 % 12/29/2023 1:52 PM [facility] Neutrophil Absolute 2.89 1.60 - 7.50 x10E9/L 12/29/2023 1:52 PM [facility] Lymphocyte Absolute 0.74(L) 1.00 - 4.40 x10E9/L 12/29/2023 1:52 PM [facility] Monocyte Absolute 0.39 0.15 - 1.00 x10E9/L 12/29/2023 1:52 PM [facility] Eosinophil Absolute 0.15 0.00 - 0.60 x10E9/L 12/29/2023 1:52 PM [facility] Basophil Absolute 0.05 0.00 - 0.13 x10E9/L 12/29/2023 1:52 PM [facility] Blood BLOOD SPECIMEN / Unknown Lab Venipuncture / Unknown 12/29/2023 1:12 PM CDT 12/29/2023 1:36 PM CDT Steve Bedolla MD LAB - HEMATOLOGY ORD ERABLES [facility] [address] [place] [address], [facility] [phone] * (ABNORMAL) COMPREHENSIVE METABOLIC PANEL (12/29/2023 1:12 PM CDT) Only the most recent of2 resultswithin the time period is included. BUN 13 7 - 26 mg/dL 12/29/2023 2:07 PM T [facility] Creatinine 0.73 0.71 - 1.16 mg/dL [...] - CHEMISTRY LIONEL WHITT Performing Organization Address [facility] Co de Phone Number [facility] [address] [place] [address], [facility] [phone] * HEPATITIS B SURFACE ANTIBODY (12/29/2023 1:12 PM CDT) Pathologist [facility] Hepatitis B Virus Surface Antibody Non-react chetna Non-react chetna 12/29/2023 2:13 PM CDT [facility] Comment: < 8 mIU/mL Hepatitis B surface Antibody (HBsAb). Nonreactive for HBsAb - individual is considered not immune to Hepatitis B Virus infection. Hepatitis B Surface Antibody Quantitative 0.3 <8.0 mIU/mL 12/29/2023 2:13 PM CDT [facility] Comment: Hepatitis B Surface Antibody Numeric Result Interpretation: ? Nonreactive: ?<8.0 mIU/mL ? Indeterminate: ??8.0 - 12.0 mIU/mL ? Reactive: ?>12.0 mIU/mL ? Blood BLOOD SPECIMEN / Unknown Lab Venipuncture / Unknown 12/29/2023 1:12 PM CDT 12/29/2023 1:26 PM CDT Steve Bedolla MD LAB - CHEMISTRY LIONEL WHITT Performing Organization Address City/[facility]/ZIP Co de Phone Number [facility] [address] [place] [address], [facility] [phone] * BILIRUBIN DIRECT (12/29/2023 1:12 PM CDT) Only the most recent of2 resultswithin the time period is included. Bilirubin Conjugated 0.5 0.1 - 0.5 mg/dL 12/29/2023 2:07 PM CDT [facility] Blood BLOOD SPECIMEN / Unknown Lab Venipuncture / Unknown 12/29/2023 1:12 PM CDT 12/29/2023 1:37 PM CDT Steve Bedolla MD LAB - CHEMISTRY LIONEL WHITT [facility] [address] [address], [facility] [phone] * HEPATITIS A ANTIBODY (12/29/2023 1:12 PM CDT) Hepatitis A Virus Antibody Total Negative Negative 12/31/2023 8:56 AM CDT [employer] ([facility]) Comment: Performed By: [employer] [address] [place] [address] Shoe Turner: Benny Desai MD, PhD CLIA Number: [id number] Blood BLOOD SPECIMEN / Unknown Lab Venipuncture / Unknown 12/29/2023 1:12 PM CDT 12/29/2023 1:26 PM CDT Steve Bedolla MD LAB - CHEMISTRY LIONEL WHITT Performing Organization Address City/[facility]/ZIP Co de Phone Number [employer] ([facility]) [address] [place] [address] * US TIPS W ABDOMEN LIMITED (07/24/2023 [...] Detected None Detected 07/16/2023 10:11 PM CDT [facility] ([facility]) Comment: If suspicion of connective tissue disease is strong and NILE EIA is negative, consider testing for NILE by IFA ([id number]). INTERPRETIVE INFORMATION: Anti-Nuclear Antibodies (NILE), IgG by RAMOS Antinuclear Antibodies (NILE), IgG by RAMOS: NILE specimens are screened using enzyme-linked immunosorbent assay (RAMOS) methodology. All RAMOS results reported as Detected are further tested by indirect fluorescent assay (IFA) using HEp-2 substrate with an IgG-specific conjugate. The NILE RAMOS screen is designed to detect antibodies against dsDNA, histones, SS-A (Ro), SS-B (La), Mclean, Mclean/PICK PULLING MACHINE OPERATOR, Scl-70, Evelina-1, centromeric proteins, other antigens extracted from the HEp-2 cell nucleus. NILE RAMOS assays have been reported to have lower sensitivities than NILE IFA for systemic autoimmune rheumatic diseases (SARD). Negative results do not necessarily rule out SARD. Performed By: [place] [address] Shoe Turner: Benny Desai MD, PhD CLIA Number: [id number] Blood BLOOD SPECIMEN / Unknown Lab Venipuncture / Unknown 07/14/2023 4:58 PM CDT 07/14/2023 5:15 PM CDT Steve Bedolla MD LAB - CHEMISTRY LIONEL WHITT Performing Organization Address City/[facility]/ZIP Co de Phone Number [facility] ([facility]) [address] [place] [address] * [id number] BLOOD (07/14/2023 4:58 PM CDT) Pathologist [facility] Hnftb-2-Jfbkfn ypsin 182 90 - 200 mg/dL 07/14/2023 5:40 PM CDT [facility] Blood BLOOD SPECIMEN / Unknown Lab Venipuncture / Unknown 07/14/2023 4:58 PM CDT 07/14/2023 5:15 PM CDT Steve Bedolla MD LAB - CHEMISTRY LIONEL WHITT Performing Organization Address City/[facility]/ZIP Co de Phone Number [address] [address], [facility] [phone] * IRON + TRANSFERRIN PANEL (07/14/2023 4:58 PM CDT) Iron 118 50 - 175 ug/dL 07/14/2023 5:39 PM CDT [facility] Transferrin 309 174 - 382 mg/dL 07/14/2023 5:39 PM CDT [facility] Transferrin Saturation % 31 16 - 50 % 07/14/2023 5:39 PM CDT [facility] TIBC Calculated 386 240 - 450 ug/dL 07/14/2023 5:39 PM CDT [facility] Blood BLOOD SPECIMEN / Unknown Lab Venipuncture / Unknown 07/14/2023 4:58 PM CDT 07/14/2023 5:15 PM CDT Steve Bedolla MD LAB - CHEMISTRY LIONEL WHITT Performing Organization Address City/[facility]/ZIP Co de Phone Number [address] [address], [place] [phone] * FERRITIN (07/14/2023 4:58 PM CDT) Ferritin 71 22 - 275 ng/mL 07/14/2023 5:58 PM CDT [facility] Blood BLOOD SPECIMEN / Unknown Lab Venipuncture / Unknown 07/14/2023 4:58 PM CDT 07/14/2023 5:15 PM CDT Steve Bedolla MD LAB - CHEMISTRY LIONEL WHITT Performing Organization Address [facility]/ZIP Co de Phone Number [address] [address], [place] [phone] * CULTURE URINE (10/04/2018 2:34 PM CDT) Culture Urine 10,000-50,000 CFU/mL urogenital jc JUANCARLOS 10/06/2018 10:31 AM CDT [facility] Urine URINE SPECIMEN OBTAINED BY CLEAN CATCH PROCEDURE / Unknown Collection / Unknown 10/04/2018 2:34 PM CDT 10/04/2018 8:11 PM CDT Trice HUERTA LAB - MICROBIOLO GY ORDERABLES Performing Organization Address City/[facility]/ZIP Co de Phone Number [facility] [address] [place] [address], [facility] [phone] * URINALYSIS AUTO - POINT OF CARE (AMB) [facility] (10/04/2018 1:23 PM CDT) Glucose UA 3 Bilirubin UA POCT neg Ketones UA POCT trace Specific [place] UA 1.020 Blood Urine POCT neg pH UA 6.0 Protein UA neg Urobilinogen UA 1 Nitrite UA neg WBC UA neg Urine URINE / Unknown 10/04/2018 1 :23 PM CDT Trice Blankenship INSPECTOR RAW QUARTZ-ENRICHMENT ASSISTANT LAB - POINT OF C ARE ORDERABLES * LAB RESULTS ORDER (06/28/2018 9:29 AM RAPID OUTSOLE STITCHER) Only the most recent of2 resultswithin the time period is included. Narrative 06/28/2018 9:29 AM RAPID OUTSOLE STITCHER Ordered by an unspecified provider. Scanned Document [...] OF CARE (AMB) [facility] (05/24/2018 8:30 AM RAPID OUTSOLE STITCHER) Only the most recent of2 resultswithin the time period is included. Hemoglobin A1c POCT 8.2 BLOOD SPECIMEN / Unknown 05/24/2018 8:30 AM RAPID OUTSOLE STITCHER Edmond Choi MD LAB - POINT OF CARE ORDERABLES Care Teams Science Faculty Member Relationship Specialty Start Date End Date Braydon Pavon PA [address] [place] [address] PCP - General Physician Content Architect 07/14/23
--- OUTSIDE RECORDS SUMMARY | 2024-05-08 06:51 | XMS_ITS | Encounter Summary ---
Author Organization [facility] Address [facility] [place] [address] Care Team Providers Care Manager Story Name Role Phone Nikolay Lancaster MD Primary Care Provider [phone] Reason for Visit * Reason Onset Date Comments Results 10/07/2018 Encounter Details Date Type Department Care Team (Late st Contact Info) Description 10/07/2018 Telephone [facility] [address] [place] [address] Trice Blankenship APRN-CNP [address] [place] [address] Results Social History Tobacco Use [...] Anesthesia Event [facility] MRI [address] [place] [address] Pushpa Frey DO [address] [facility] [address] [phone] 05/20/2024 12:30 PM MANAGER OF ENTERPRISE Appointment [facility] MRI [address] [place] [address] Steve Bedolla MD [address] [place] [address] documented as of this encounter Visit Diagnoses Not on filedocumented in this encounter Care Teams Manager Story Relationship Specialty Start Date End Date Nikolay Lancaster MD [address] [place] [address] PCP - General 10/04/18 07/13/23 documented as of this encounter
--- OUTSIDE RECORDS SUMMARY | 2024-05-08 06:51 | XMS_ITS | Encounter Summary ---
Author Organization [facility] Address [address] [facility] [place] [address] Care Team Providers Care Dehydrator Operator Name Role Phone Braydon Pavon Primary Care Provider [phone] Encounter Details Date Type Department Care Team (Late Contact Info) Description 05/24/2018 Orders Only [facility] [address] [facility] [place] [address] Edmond Choi MD [address] [facility] [address] [place] [address] Type 2 diabetes mellitus with complication, with [...] 02/17/2024 11:59 PM CDT Anesthesia Event [facility] MRI [address] [place] [phone] Pushpa Frey DO [address] [facility] [address] [phone] 05/20/2024 12:30 PM CLOTH FINISHING RANGE OPERATOR Appointment [facility] MRI [address] [place] [address] Steve Bedolla MD [address] [place] [address] documented as of this encounter Visit Diagnoses Diagnosis Type 2 diabetes mellitus with complication, with long-term current use of insulin (HCC) documented in this encounter Care Teams Dehydrator Operator Relationship Specialty Start Date End Date Braydon Pavon PA [address] [place] [address] PCP - General Physician Observation Assistant 05/19/18 10/03/18 documented as of this encounter
--- OUTSIDE RECORDS SUMMARY | 2024-05-08 06:51 | XMS_ITS | Encounter Summary ---
Author Organization [facility] Address [address] [facility] [facility] [place] [address] Care Team Providers Care Processing Spec Name Role Phone Nikolay Lancaster MD Primary Care Provider [phone] Encounter Details Date Type Department Care Team (Late Contact Info) Description 10/25/2018 Orders Only [facility] End[facility]ology, Diabetes and Metabolism [address] [place] [address] Edmond Choi MD [address] [place] [address] Social History Tobacco Use Types Packs/Day Years [...] 02/17/2024 11:59 PM CDT Anesthesia Event [facility] MRI [address] [place] [phone] Pushpa Frey DO [address] [facility] [address] [phone] 05/20/2024 12:30 PM CUTTER MACHINE TENDER Appointment [facility] MRI [address] [place] [address] Steve Bedolla MD [address] [place] [address] documented as of this encounter Visit Diagnoses Not on filedocumented in this encounter Care Teams Processing Spec Relationship Specialty Start Date End Date Nikolay Lancaster MD [address] [place] [address] PCP - General 10/04/18 07/13/23 documented as of this encounter
--- OUTSIDE RECORDS SUMMARY | 2024-05-08 06:51 | XMS_ITS | Encounter Summary ---
Author Organization [facility] Address [facility] [place] [address] Care Team Providers Care Master Scheduler Name Role Phone Braydon Pavon Primary Care Provider [phone] Reason for Visit * Reason Comments Refill Request Encounter Details Date Type Department Care Team (Late Contact Info) Description 08/26/2018 Refill [facility] [address] [place] [address] Aleksandr Fink MD [address] [place] [address] Refill Request Social History Tobacco Use Types [...] 11:59 PM CDT Anesthesia Event [facility] MRI [address] [place] [phone] Pushpa Frey DO 0541 [facility] [address] [phone] 05/20/2024 12:30 PM MANAGER MOLECULAR Appointment [facility] MRI [address] [place] [address] Steve Bedolla MD [address] [place] [phone] documented as of this encounter Visit Diagnoses Not on filedocumented in this encounter Care Teams Master Scheduler Relationship Specialty Start Date End Date Braydon Pavon PA [address] [place] [address] PCP - General Physician Compound Machine Operator 05/19/18 10/03/18 documented as of this encounter
--- OUTSIDE RECORDS SUMMARY | 2024-05-08 06:51 | XMS_ITS | Encounter Summary ---
Author Organization [facility] Address [facility]3 [facility] [place] [address] Care Team Providers Care Management Coordinator Name Role Phone Braydon Pavon Primary Care Provider [phone] Encounter Details Date Type Department Care Team [...] Description 02/17/2024 11:59 PM CDT Anesthesia Event [facility] MRI [address] [place] [phone] Pushpa Frey DO [address] [facility] [address] [phone] 05/20/2024 12:30 PM ENAMEL APPLIER Appointment [facility] MRI [address] [place] [phone] Steve Bedolla MD [address] [place] [phone] documented as of this encounter Goals Goal [...] on filedocumented in this encounter Care Teams Management Coordinator Relationship Specialty Start Date End Date Braydon Pavon PA [address] [place] [address] PCP - General Physician Education Rep 07/14/23 documented as of this encounter
--- OUTSIDE RECORDS SUMMARY | 2024-05-08 06:51 | XMS_ITS | Encounter Summary ---
Author Organization [facility] Address [facility]3 [place] [address] Care Team Providers Care Mushroom Laborer Name Role Phone Braydon Pavon Primary Care Provider [phone] Reason for Referral * (Routine) - Open Specialty Diagnoses / Procedures Referred By Contac t Referred To Contact Diagnoses Cirrhosis of liver without ascites, unspecified hepatic cirrhosis type (HCC) Procedures [id number] BLOOD Steve Bedolla MD [facility] [place] [address] Referral ID Status Reason Start Date Expiration Date Visits Re quested Visits Authorized [id number] Open 07/14/2023 07/13/2024 1 1 Reason for Visit * Reason Comments Cirrhosis Le * Evaluate & Treat (Routine) - Closed Specialty Diagnoses / Procedures Referred By Contact Referred To Contact Hepatology / Gastroenterology Diagnoses Nonalcoholic steatohepatitis (LE) 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) Riddhi Bello [address] [place] [address] [facility] [address]l [address] [facility], [place] [address] Referral ID Status Reason Start Date Expiration Date V isits Requested Visits Authorized [id number] Closed Continuity of Care 06/20/2023 06/19/2024 1 1 Encounter Details Date Type Department Care Team (Latest Contact Info) Description 07/14/2023 2:30 PM CDT Office Visit [facility] - GI [address] [facility] [place] [phone] Steve Bedolla MD [address] [place] [address] Cirrhosis of liver without ascites, [...] the physicians and other specialists at the [facility] today. Following your visit, you [...] please call (hospital main number), ask the laborer operator to call the gastroenterology fellow or transplant fellow programmer numerical control. Emergency: call 911 or go to your closest emergency room. We encourage you to use [employer] to send and receive messages and review your test results. Let us know if you need information on signing up for [employer]. More information about us and our services can be found on our websites at [email or web address] and [email or web address] [email or web address] 07/14/2023 The following information and [...] at your PCP's office. Talk to your stock analyst about getting on a more potent medications for Diabetes (Ozempic or Monjauro) Consider a Mediterranean diet. Ask to see a zinc furnace charger locally Titrate lactulose to achieve 2-3 soft [...] find that it helps to have a epic trainer to provide guidance. 2. Eat healthy foods. Good advice on nutrition can be found on the website for the [place] Healthy Eating Pyramid. Either search for that on the internet or go to: http://www.[facility].[email or web address].[facility]/nutritionsource/rxaa-jgqsnk-rzm-eat/pyramid/ 3. Avoid fast foods and sugar sweetened [...] should limit your dose to no more [id number] mg daily. This means that you should [...] Bedolla MD - 07/14/2023 3:23 PM CDT [facility] Referring Provider: [...] saw Mr. Curry in Liver Clinic at [facility] today for an initial visit to provide [...] a bus- had stiches went to a [employer] for his grandkids and nephews now. Does [...] updated and corrected these sections of his [facility] electronic health record based on my discussions with him and/orhis family members present at his visit today. Social History Social History Narrative Disabled. 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 Can also consider admission #Cirrhosis with portal HTN - Varices/Portal hypertensive bleeding: his most recent EGD still with varices. Will check TIPs, but given encephalopathy, likely cannot increase diameter of TIPS. We may need to put him on carvedilol - Ascites: none - PSE: present, on lactulose, have sent message to [facility] [facility] [employer] obtaining rifaximin (previously prescribed) - HCC: see [...] use - advised him to see a zinc furnace charger - discussed limiting simple carbohydrates Patient Instructions [...] your PCP's office. ? Talk to your stock analyst about getting on a more potent medications for Diabetes (Ozempic or Monjauro) ? Consider a Mediterranean diet. Ask to see a zinc furnace charger locally ? Titrate lactulose to achieve 2-3 [...] routed to: Address letter to: Riddhi Bello [address] [place] [address] Copy to: SONALI Kunz [address] [facility] [address] Orders Placed This Encounter ??? CBC WITH DIFFERENTIAL ??? COMPREHENSIVE METABOLIC PANEL ??? PT-INR [facility] ??? BILIRUBIN DIRECT ??? ALPHA FETOPROTEIN BLOOD TUMOR MARKER ??? NILE BLOOD SCREEN W/REFLEX TITER ??? FERRITIN ??? IRON + TRANSFERRIN PANEL ??? [id number] BLOOD Coding Rationale New or est? New Patient Total time spent on date of encounter: 80 minutes Highest problem complexity: 1 or more chronic illnesses with exacerbation, progression, or side effects of treatment Suggested code: 90574 Prolonged services code (non-Medicare): 34148 x 1 Prolonged services code (Medicare): does not meet Medicare criteria for prolonged services coding documented in this encounter Plan of Treatment Upcoming Encounters Date Type Department Care Team (Late st Contact Info) Description 02/17/2024 11:59 PM CDT Anesthesia Event [facility] MRI [address] [place] [phone] Pushpa Frey, DO [address] [facility] [address] [phone] 05/20/2024 12:30 PM EXHIBIT BUILDER Appointment [facility] MRI [address] [place] [address] Steve Bedolla MD [address] [place] [address] documented as of this encounter [...] documented as of this encounter Results * [id number] BLOOD (07/14/2023 4:58 PM CDT) Nhnhh-4-Dtsorc ypsin 182 90 - 200 mg/dL 07/14/2023 5:40 PM CDT [facility] Blood BLOOD SPECIMEN / Unknown Lab Venipuncture / Unknown 07/14/2023 4:58 PM CDT 07/14/2023 5:15 PM CDT Steve Bedolla MD LAB - CHEMISTRY LIONLE WHITT [facility] Organization Address City/State/ZIP Co de Phone Number [facility] [address] [place] [address], [facility] [phone] * IRON + TRANSFERRIN PANEL (07/14/2023 4:58 PM CDT) Iron 118 50 - 175 ug/dL 07/14/2023 5:39 PM CDT [facility] Transferrin 309 174 - 382 mg/dL 07/14/2023 5:39 PM CDT [facility] Transferrin Saturation % 31 16 - 50 % 07/14/2023 5:39 PM CDT [facility] TIBC Calculated 386 240 - 450 ug/dL 07/14/2023 5:39 PM CDT [facility] Blood BLOOD SPECIMEN / Unknown Lab Venipuncture / Unknown 07/14/2023 4:58 PM CDT 07/14/2023 5:15 PM CDT Steve Bedolla MD LAB - CHEMISTRY LIONEL WHITT [address] [address], [facility] [phone] * FERRITIN (07/14/2023 4:58 PM CDT) Pathologist [facility] Ferritin 71 22 - 275 ng/mL 07/14/2023 5:58 PM CDT [facility] Blood BLOOD SPECIMEN / Unknown Lab Venipuncture / Unknown 07/14/2023 4:58 PM CDT 07/14/2023 5:15 PM CDT Steve Bedolla MD LAB - CHEMISTRY LIONEL WHITT Performing Organization Address City/[facility]/ZIP Co de Phone Number [address] [address], [place] [phone] * NILE BLOOD SCREEN W/REFLEX TITER (07/14/2023 4:58 PM CDT) Pathologist [facility] NILE IgG None Detected None Detected 07/16/2023 10:11 PM CDT [facility] ([facility]) Comment: If suspicion of connective tissue disease is strong and NILE EIA is negative, consider testing for NILE by IFA ([id number]). INTERPRETIVE INFORMATION: Anti-Nuclear Antibodies (NILE), IgG by RAMOS Antinuclear Antibodies (NILE), IgG by RAMOS: NILE specimens are screened using enzyme-linked immunosorbent assay (RAMOS) methodology. All RAMOS results reported as Detected are further tested by indirect fluorescent assay (IFA) using HEp-2 substrate with an IgG-specific conjugate. The NILE RAMOS screen is designed to detect antibodies against dsDNA, histones, SS-A (Ro), SS-B (La), Mclean, Mclean/RENTAL SALES REPRESENTATIVE, Scl-70, Evelina-1, centromeric proteins, other antigens extracted from the HEp-2 cell nucleus. NILE RAMOS assays have been reported to have lower sensitivities than NILE IFA for systemic autoimmune rheumatic diseases (SARD). Negative results do not necessarily rule out SARD. Performed By: [employer] [address] [place] [address] Instructor Kindergarten: Benny Desai MD, PhD CLIA Number: [id number] Blood BLOOD SPECIMEN / Unknown Lab Venipuncture / Unknown 07/14/2023 4:58 PM CDT 07/14/2023 5:15 PM CDT Steve Bedolla MD LAB - CHEMISTRY LIONEL WHITT Performing Organization Address City/[facility]/ZIP Co de Phone Number [facility] [employer] ([facility]) [address] [place], [place] [address] * ALPHA FETOPROTEIN BLOOD TUMOR MARKER (07/14/2023 4:58 PM CDT) Pathologist [facility] Alpha-Fetoprote in Tumor Marker <2.0 <=8.3 ng/mL 07/14/2023 6:11 PM CDT [facility] Comment: AFP values will vary depending on testing procedure used. Results are not comparable across different methods. AFP values obtained by [facility] using an [place] Alinity Immunoassay. Blood BLOOD SPECIMEN / Unknown Lab Venipuncture / Unknown 07/14/2023 4:58 PM CDT 07/14/2023 5:21 PM CDT Steve Bedolla MD LAB - CHEMISTRY LIONEL WHITT Performing Organization Address City/[facility]/ZIP Co de Phone Number [address] [address], [facility] [phone] * BILIRUBIN DIRECT (07/14/2023 4:58 PM CDT) Pathologist [facility] Bilirubin Conjugated 0.5 0.1 - 0.5 mg/dL 07/14/2023 5:50 PM CDT [facility] Blood BLOOD SPECIMEN / Unknown Lab Venipuncture / Unknown 07/14/2023 4:58 PM CDT 07/14/2023 5:21 PM CDT Steve Bedolla MD LAB - CHEMISTRY LIONEL WHITT [facility] [address] [place] [address], [facility] [phone] * (ABNORMAL) PT-INR [facility] (07/14/2023 4:58 PM CDT) Pathologist [facility] PT 14.9(H) 12.1 - 14.8 Seconds 07/14/2023 5:59 PM CDT [facility] INR 1.2 See Comment 07/14/2023 5:59 PM CDT [facility] Comment:The suggested [...] - COAGULATION OR DERABLES Performing Organization Address [place]/[facility] Co de Phone Number [address] [address], [facility] [phone] * (ABNORMAL) COMPREHENSIVE METABOLIC PANEL (07/14/2023 4:58 PM CDT) Pathologist [facility] BUN 13 7 - 26 mg/dL 07/14/2023 5:50 PM CDT [facility] Creatinine 0.74 0.71 - 1.16 mg/dL 07/14/2023 5:50 PM CDT [facility] Sodium 135(L) 136 - 145 mmol/L 07/14/2023 5:50 PM CDT [facility] Potassium 4.1 3.5 - 4.5 mmol/L 07/14/2023 5:50 PM CDT [facility] Chloride 99 98 - 107 mmol/L 07/14/2023 5:50 PM CDT [facility] CO2 24 22 - 29 mmol/L 07/14/2023 5:50 PM CDT [facility] Glucose 343(H) 70 - 115 mg/dL [...] Bedolla MD LAB - CHEMISTRY LIONEL WHITT [facility] Organization Address City/State/ZIP Co de Phone Number [facility] [address] [place] [address], [facility] [phone] * (ABNORMAL) CBC WITH DIFFERENTIAL (07/14/2023 4:58 [...] - 7.50 x10E9/L 07/14/2023 5:32 PM CDT [facility] Lymphocyte Absolute 1.12 1.00 - 4.40 x10E9/L 07/14/2023 5:32 PM CDT [facility] Monocyte Absolute 0.74 0.15 - 1.00 x10E9/L 07/14/2023 5:32 PM CDT [facility] Eosinophil Absolute 0.14 0.00 - 0.60 x10E9/L 07/14/2023 5:32 PM CDT [facility] Basophil Absolute 0.07 0.00 - 0.13 x10E9/L 07/14/2023 5:32 PM CDT [facility] Blood BLOOD SPECIMEN / Unknown Lab Venipuncture / Unknown 07/14/2023 4:58 PM CDT 07/14/2023 5:22 PM CDT Steve Bedolla MD LAB - HEMATOLOGY ORD ERABLES [facility] [address] [place] [address], [facility] [phone] documented in this encounter Visit Diagnoses Diagnosis [...] liver documented in this encounter Care Teams Mushroom Laborer Relationship Specialty Start Date End Date Braydon Pavon PA [address] [place] [address] PCP - General Physician Template Storage Clerk 07/14/23 documented as of this encounter
--- OUTSIDE RECORDS SUMMARY | 2024-05-08 06:51 | XMS_ITS | Encounter Summary ---
Author Organization [facility] Address [address] [place] [address] Care Team Providers Care Operating Systems Programmer Name Role Phone Braydon Pavon Primary Care Provider Encounter Details Date Type Department Care Team (Late Contact Info) Description 09/09/2018 Orders Only [facility] GI [address] [place] [address] Aleksandr Fink MD [address] [place] [address] 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) Social [...] Description 02/17/2024 11:59 PM CDT Anesthesia Event [facility] MRI [address] [place] [phone] Pushpa Frey DO [address] [facility] [address] [phone] 05/20/2024 12:30 PM SEROLOGIST Appointment [facility] MRI [address] [place] [phone] Steve Bedolla MD [address] [place] [address] Scheduled Orders Name Type Priority Associated Diagnoses [...] disease documented in this encounter Care Teams Operating Systems Programmer Relationship Specialty Start Date End Date Braydon Pavon PA [address] [place] [address] PCP - General Physician Brake Operator Helper 05/19/18 10/03/18 documented as of this encounter
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
--- OUTSIDE RECORDS SUMMARY | 2024-05-08 06:52 | XMS_ITS | Encounter Summary ---
Author Organization [facility] Address [address] [place] [address]. [place] [address] [place] [address] Care Team Providers Care Molder Name Role Phone Braydon Pavon Primary Care Provider [phone] Reason for Visit * Reason Comments Type 2 Diabetes * Consultation/Treatment (Routine) - Closed Specialty Diagnoses / Procedures Referred By Jordan casillas Referred To Contact ENDOCRINOLOGY Diagnoses Follow Up Procedures FOLLOW UP Paul Chanel MD [facility] [address] [place] [address] Phone: tel: fax: Paul Chanel MD [facility] [address] [place] [address] Phone: tel: fax: Referral ID Status Reason Start Date Expiration Date Visits Re quested Visits Authorized [id number] Closed 04/05/2019 04/05/2020 15 15 Encounter Details Date Type Department Care Team (Late st Contact Info) Description 04/05/2019 11:40 AM YARD SWITCHER Office Visit [facility] Medical Group Diabetes and Endocrinology - [place] [address] [address] [place] [id number] Paul Chanel MD [facility] [address] [place] [address] Type 2 Diabetes Social History [...] Comments Blood Pressure 132/72 04/05/2019 11:41 AM YARD SWITCHER Pulse 102 04/05/2019 11:41 AM YARD SWITCHER Temperature - - Respiratory Rate - - Oxygen Saturation - - Inhaled Oxygen Concentration - - Weight 122.5 kg (270 lb) 04/05/2019 11:41 AM YARD SWITCHER Height 172.7 cm (5' 8 ) 04/05/2019 11:41 AM YARD SWITCHER Body Mass Index 41.05 04/05/2019 11:41 AM YARD SWITCHER documented in this encounter Patient Instructions * Patient Instructions* Paul Chanel MD - 04/05/2019 11:40 AM YARD SWITCHER U-500 R 200 units each meal 3 times a day Start check BG 2/day in am, and before supper You saw Dr. Paul Chanel today in [facility]. It was pleasure to see you today. Please do not hesitate to contact us with additional questions or concerns, you can reach us at [phone] during business hours, or [phone] after hours or weekends. SWITCHER SWITCHER SWITCHER documented in this encounter Progress Notes * Paul Chanel MD - 04/05/2019 11:40 AM CST This reason for Visit: Type 2 Diabetes Last visit 12/09/2016 PCP: SNOALI CURRIE Impression: Camilo Curry is a very [...] room several times and also hospitalized in [facility] in October 2017 and February 2018 for [...] GI in [place] - Dr. Bev Ellis ([facility]). A1c 7.7 (September 2016); 8.4 (Feb 2018) [...] Base) MCG/ACT inhaler ??? vitamin D2, ergocalciferol, 82640 UNITS capsule Take 50,000 Units by mouth [...] ??? TRACY (obstructive sleep apnea) ??? Thrombocytopenia ([facility]) ??? Type 2 diabetes mellitus with hyperglycemia, with long-term current use of insulin ([facility]) Problem List Items Addressed This Visit Type 2 diabetes mellitus with hyperglycemia, with long-term current use of insulin ([facility]) - Primary Relevant Medications TRUE METRIX [...] and given to the patient. PAUL CHANEL SWITCHER documented in this encounter Plan of Treatment Upcoming Encounters Date Type Department Care Team (Late st Contact Info) Description 05/10/2024 11:40 AM YARD SWITCHER Office Visit [facility] Medical Group Diabetes and Endocrinology - [address] [address] Paul Chanel MD [address] [place] [address] documented as of this encounter Procedures Procedure Name Priority Date/Time Associated Diagnosis Comments HEMOGLOBIN, GLYCOSYLATED Routine 04/05/2019 Type 2 diabetes mellitus with hyperglycemia, with long-term current use of insulin ([facility]) GLUCOSE BLOOD, MONITOR DEVICE Routine 04/05/2019 Type 2 diabetes mellitus with hyperglycemia, with long-term current use of insulin ([facility]) documented in this encounter Results * HEMOGLOBIN, GLYCOSYLATED (04/05/2019) HGB A1C 10.[address] 04/05/2019 us Paul Chanel MD LABORATORY Final Result Performing Organization Address [facility] Co de Phone Number [address], [place] [phone], * (ABNORMAL) GLUCOSE BLOOD, MONITOR DEVICE (04/05/2019) GLUCOSE WHOLE BLOOD 260(A) 70 - 100 mg/dL [address] 04/05/2019 Paul Chanel MD LABORATORY Final Result Performing Organization Address [facility] de Phone Number [address], [address] [address], [place] [phone] documented in this encounter Visit Diagnoses Diagnosis Type 2 diabetes mellitus with hyperglycemia, with long-term current use of insulin ([facility])- Primary documented in this encounter Care Teams Molder Relationship Specialty Start Date End Date Braydon Pavon PA [address] [place] [address] PCP - General PHYSICIAN PRODUCT DEVELOPMENT COORDINATOR 03/02/19 documented as of this encounter
--- OUTSIDE RECORDS SUMMARY | 2024-05-08 06:52 | XMS_ITS | Encounter Summary ---
Author Organization [facility] Address [address] [place] [address]. [place] [address] [place] [address] Care Team Providers Care Transport Assistant Name Role Phone Braydon Pavon Primary Care Provider [phone] Encounter Details Date Type Department Care Team (Late st Contact Info) Description 11/11/2020 11:18 PM CDT - 11/11/2020 11:52 PM CDT Emergency [facility] [address] [facility] [address] [address] [place] [address] Josué Wilson, DO [address] [place], [place] [id number] Discharge Disposition: Home or Self Care (Routine [...] through Care Everywhere. * Shingles Discharge Instructions (Chilean) documented in this encounter Medications at Time of Discharge Insulin Pen Needle (PEN NEEDLES) 32G X 4 MM Misc Inject 3 times daily 08/04/2019 lactulose 20 GM/30ML solution Take 30 mLs by mouth 4 (four) times daily. ONE TOUCH ULTRA TEST STRIPS test stripIndications: Type 2 diabetes mellitus with hyperglycemia, with long-term current use of insulin ([facility]/HCC HHS/HCC) Test 4 times daily 200 strip 11 09/06/2019 rifaximin 200 MG tablet Take 550 mg by mouth 2 (two) times daily. vitamin D2, ergocalciferol, 04331 UNITS capsule Take 50,000 Units by mouth [...] right leg. Pt states he was in [place] [facility] night with the same [...] state of health. History provided by: Patient drywall taper helper used: No Medical History ALLERGIES: Allergies Allergen [...] inhaler 04/04/19 Doc Abstract vitamin D2, ergocalciferol, 82555 UNITS capsule Take 50,000 Units by mouth [...] st Contact Info) Description 05/10/2024 11:40 AM HIGH SCHOOL BUSINESS TEACHER Office Visit [facility] Medical Group Diabetes and Endocrinology - [address] [address] Eva Power MD [address] [place] [address] documented as of this encounter Visit [...] RN) documented in this encounter Care Teams Transport Assistant Relationship Specialty Start Date End Date Braydon Pavon PA [address] [place] [address] PCP - General PHYSICIAN WAREHOUSE GUARD 03/02/19 documented as of this encounter
--- OUTSIDE RECORDS SUMMARY | 2024-05-08 06:52 | XMS_ITS | Encounter Summary ---
Author Organization [facility] Address [facility] [facility] [place] [address] [place] [address] Care Team Providers Care Diagnostic Medical Sonographer Name Role Phone Braydon Pavon Primary Care Provider [phone] Reason for Visit * Reason Comments Consult spinal stenosis- has not had imaging done in the last year * Consultation (Routine) - Closed Specialty Diagnoses / Procedures Referred By Jordan casillas Referred To Contact NEUROSURGERY Diagnoses Spinal stenosis spinal stenosis Procedures FULL STACK SOFTWARE ENGINEER consultation Braydon Pavon PA [address] [place] [address] Phone: tel: fax: Bola Feldman MD Phone: tel: fax: Referral ID Status Reason Start Date Expiration Date V isits Requested Visits Authorized [id number] Closed Consultation 05/10/2019 05/10/2020 1 1 Encounter Details Date Type Department Care Team (Latest Contact Info) Description 05/23/2019 10:40 AM HULL AND DECK REMOVER Office Visit [facility] Medical [facility] - [address] [address] Bola Feldman MD [facility] [address] [address] Consult (spinal stenosis- has not [...] Comments Blood Pressure 145/85 05/23/2019 10:48 AM HULL AND DECK REMOVER Pulse 113 05/23/2019 10:48 AM HULL AND DECK REMOVER Temperature - - Respiratory Rate - - Oxygen Saturation 97% 05/23/2019 10:48 AM HULL AND DECK REMOVER Inhaled Oxygen Concentration - - Weight 122 kg (269 lb) 05/23/2019 10:48 AM HULL AND DECK REMOVER Height 172.7 cm (5' 8 ) 05/23/2019 10:48 AM HULL AND DECK REMOVER Body Mass Index 40.9 05/23/2019 10:48 AM HULL AND DECK REMOVER documented in this encounter Progress Notes * Ying Jc RN - 05/23/2019 10:40 AM CSTAddended by: YING JC on: 05/24/2019 02:55 PM Modules accepted: Orders AND DECK REMOVER * Bola Feldman MD - 05/23/2019 10:40 [...] be able to have an MRI from [facility] in [place] which can come dated. He will also be able to follow-up with his painter railroad car for possible injections. Recommendations: We will order [...] originally had his liver issues treated at [facility] in [place] but they no longer take his insurance [...] up to have injections with pa in change management but his insurance changed and patient is [...] Base) MCG/ACT inhaler ??? vitamin D2, ergocalciferol, 45999 UNITS capsule Take 50,000 Units by mouth [...] Feldman MD Primary Care Physician: SONALI CURRIE AND DECK REMOVER AND DECK REMOVER documented in this encounter Plan of Treatment Upcoming Encounters Date Type Department Care Team (Late st Contact Info) Description 05/10/2024 11:40 AM HULL AND DECK REMOVER Office Visit [facility] Medical Group Diabetes and Endocrinology - [address] [address] Eva Power MD [address] [place] [address] documented as of this encounter Visit Diagnoses Diagnosis Lumbar degenerative disc disease- Primary Degeneration of lumbar or lumbosacral intervertebral disc documented in this encounter Care Teams Diagnostic Medical Sonographer Relationship Specialty Start Date End Date Braydon Pavon PA [address] [place] [address] PCP - General PHYSICIAN PROGRAMMING SPECIALIST 03/02/19 documented as of this encounter
--- OUTSIDE RECORDS SUMMARY | 2024-05-08 06:52 | XMS_ITS | Encounter Summary ---
Author Organization [facility] Address [address] [place] [address]. [id number] Care Team Providers Care Line Installer Repairer Name Role Phone Braydon Pavon Primary Care [...] st Contact Info) Description 05/10/2024 11:40 AM INFORMATION SYSTEMS AUDIT MANAGER Office Visit [facility] Medical Group Diabetes and Endocrinology - [address] [phone] Eva Power MD [address] [place] [address] documented as of this encounter Visit Diagnoses Not on filedocumented in this encounter Care Teams Line Installer Repairer Relationship Specialty Start Date End Date Braydon Pavon PA [address] [place] [address] PCP - General PHYSICIAN PATTERNMAKER PRESSURE CAST 03/02/19 documented as of this encounter
--- OUTSIDE RECORDS SUMMARY | 2024-05-08 06:52 | XMS_ITS | Encounter Summary ---
Author Organization [facility] Address [address] [place] [address]. [place] [address] [place] [address] Care Team Providers Care Post Exchange Manager Name Role Phone Braydon Pavon Primary Care Provider [phone] Reason for Visit * Reason Onset Date Comments Called To Cancel Office Appt. 07/05/2019 Encounter Details Date Type Department Care Team (Late st Contact Info) Description 07/05/2019 Telephone [facility] Medical Group Diabetes and Endocrinology - [address] [phone] Eva Power MD [address] [place] [phone] Called To Cancel Office Appt. Social [...] Chapin - 07/05/2019 12:18 PM CST Noted ASTRUCTURE CONSULTANT * Chantelle Espinoza MA - 07/05/2019 11:54 AM CST FYI ASTRUCTURE CONSULTANT * Cameron Calderon - 07/05/2019 11:52 AM CST Patient cancelled appointment for today, declined to reschedule. ASTRUCTURE CONSULTANT documented in this encounter Plan of Treatment Upcoming Encounters Date Type Department Care Team (Late st Contact Info) Description 05/10/2024 11:40 AM INFRASTRUCTURE CONSULTANT Office Visit [facility] Medical Group Diabetes and Endocrinology - [address] [phone] Eva Power MD [address] [place] [phone] documented as of this encounter Visit Diagnoses Not on filedocumented in this encounter Care Teams Post Exchange Manager Relationship Specialty Start Date End Date Braydon Pavon PA [address] [place] [address] PCP - General PHYSICIAN HEMSTITCHING MACHINE OPERATOR 03/02/19 documented as of this encounter
--- OUTSIDE RECORDS SUMMARY | 2024-05-08 06:52 | XMS_ITS | Encounter Summary ---
Author Organization [facility] Address [address] [place] [address]. [place] [address] [place] [address] Care Team Providers Care Community Liaison Name Role Phone Unavailable Primary Care Provider Unavailabl e Encounter Details Date Type Department Care Team (Latest Contact Info) Description 11/19/2017 Abstract [facility] Medical Group Social History Tobacco Use [...] st Contact Info) Description 05/10/2024 11:40 AM METAL CUT OFF SAW OPERATOR Office Visit [facility] Medical Group Diabetes and Endocrinology - [address] [phone] Eva Power MD [address] [place] [phone] documented as of this encounter Visit Diagnoses Not on filedocumented in this encounter
--- OUTSIDE RECORDS SUMMARY | 2024-05-08 06:52 | XMS_ITS | Encounter Summary ---
Author Organization [facility] Address [address] [place] [address]. [place] [address] [place] [address] Care Team Providers Care Research And Insights Executive Name Role Phone None, Provider Primary Care Provider Braydon Piedra Primary Care Provider [phone] Encounter Details Date Type Department Care Team (Late Contact Info) Description 10/09/2018 Abstract [facility] CONVERSION [address] [place] [address] , Generic Conversion, Social History Tobacco Use [...] (Late Contact Info) Description 05/10/2024 11:40 AM AR MANAGER Office Visit [facility] Medical Group Diabetes and Endocrinology - [address] [phone] Eva Power MD [address] [place] [address] [place] [address] documented as of this encounter Visit Diagnoses Not on filedocumented in this encounter Care Teams Research And Insights Executive Relationship Specialty Start Date End Date None, Provider, PCP - General 02/08/19 03/01/19 Braydon Pavon PA [address] [place] [address] PCP - General PHYSICIAN VENDING MACHINE MECHANIC 03/02/19 documented as of this encounter
--- OUTSIDE RECORDS SUMMARY | 2024-05-08 06:52 | XMS_ITS | Encounter Summary ---
Author Organization [facility] Address [address] [place] [address]. [place] [address] [place] [address] Care Team Providers Care Gas Manager Name Role Phone Unavailable Primary Care Provider Unavailabl e Encounter Details Date Type Department Care Team (Late Contact Info) Description 02/04/2018 [facility] Emergency Room [address] [place] [address] [place] [address] Faith Choe MD [address] [place] [address] Social History Tobacco Use Types Packs/Day [...] (Late Contact Info) Description 05/10/2024 11:40 AM POOL MANAGER Office Visit [facility] Medical Group Diabetes and Endocrinology - [address] [phone] Eva Power MD [address] [place] [phone] documented as of this encounter Procedures [...] GLUCOSE BLOOD, QNT (02/04/2018 7:52 PM CDT) [facility] Signature GLUCOSE POC 201(H) 70 - 140 MG/DL 02/04/2018 7:55 PM CDT [facility] ORDERS INTERFACE 02/04/2018 7:52 PM CDT 02/04/2018 7:55 PM CDT us Generic Conversion Md RED LABORATORY Final R esult [facility] ORDERS INTERFACE US * (ABNORMAL) Blood gas, venous (02/04/2018 6:15 PM CDT) O2 SAT VENOUS 98(H) 40 - 70 % 02/04/2018 6:30 PM CDT [facility] PH VENOUS 7.42 7.35 - 7.45 02/04/2018 6:30 PM CDT [facility] PCO2 38.2(L) 41.0 - 51.0 MMHG 02/04/2018 6:30 PM CDT [facility] PO2 VENOUS 95.0(H) 20.0 - 40.0 MM HG 02/04/2018 6:30 PM CDT [facility] VENOUS BASE EXCESS 0.7 MMOL/L 02/04/2018 6:30 PM CDT [facility] BICARB VENOUS 24.5 22.0 - 29.0 MMOL/L 02/04/2018 6:30 PM CDT [facility] TCO2 25.6 25.0 - 29.0 MMOL/L 02/04/2018 6:30 PM CDT [facility] LITER FLOW ROOM AIR 02/04/2018 6:25 PM CDT [facility] 02/04/2018 6:15 PM CDT 02/04/2018 6:24 PM CDT us Generic Conversion Md RED LAB[facility]ORY Final R esult [facility] [address] [place] [address], * (ABNORMAL) COMPREHENSIVE METABOLIC PANEL (02/04/2018 6:15 PM CDT) SODIUM S/P/B 139 136 - 145 MMOL/L 02/04/2018 6:44 PM CDT [facility] POTASSIUM S/P/B 3.9 3.5 - 5.1 MMOL/L 02/04/2018 6:44 PM CDT [facility] CHLORIDE S/P/B 103 98 - 107 MMOL/L 02/04/2018 6:44 PM CDT [facility] CO2 26.4 21.0 - 32.0 MMOL/L 02/04/2018 6:44 PM CDT [facility] GLUCOSE 312(H) 70 - 140 MG/DL 02/04/2018 6:44 PM CDT [facility] BUN 7 6 - 24 MG/DL 02/04/2018 6:44 PM CDT [facility] CREATININE S/P/B 0.87 0.70 - 1.30 MG/DL 02/04/2018 6:44 PM CDT [facility] CALCIUM S/P/B 9.1 8.4 - 10.5 MG/DL 02/04/2018 6:44 PM CDT [facility] BILIRUBIN TOTAL S/P/B 1.0 0.2 - 1.0 MG/DL 02/04/2018 6:44 PM [facility] ALKALINE PHOSPHATASE S/P/B 93 45 - 115 U/L 02/04/2018 6:44 PM [facility] AST 108(H) 15 - 37 U/L 02/04/2018 6:44 PM [facility] ALT 118(H) 16 - 63 U/L 02/04/2018 6:44 PM [facility] TOTAL PROTEIN S/P/B 6.8 6.4 - 8.2 G/DL 02/04/2018 6:44 PM [facility] ALBUMIN S/P/B 3.3(L) 3.4 - 5.0 G/DL 02/04/2018 6:44 PM [facility] ANION GAP 9.6 MMOL/L 02/04/2018 6:44 PM [facility] Comment:REFERENCE RANGE NOT ESTABLISHED OSMOLALITY (CALC) 298 MOSM/KG 02/04/2018 6:44 PM [facility] Comment:REFERENCE RANGE NOT ESTABLISHED EGFR NON-AFR. AMER. >90 >89 ML/MIN/1 .73 M2 02/04/2018 6:44 PM [facility] EGFR AFR. AMER. >90 >89 ML/MIN/1 .73 M2 02/04/2018 6:44 PM [facility] GFR NOTES THE ESTIMATED GFR IS CALCULATED USING THE 2009 CKD-EPI EQUATION. THE FOLLOWING CATEGORIES FOR GRADING RENAL FUNCTION ARE RECOMMENDED BY THE INTERNATIONAL SOCIETY OF NEPHROLOGY (KDIGO 2012 CLINICAL PRACTICE GUIDELINE). 02/04/2018 6:44 PM [facility] Comment: G1,NORMAL OR HIGH: >89 ml/min/1.73 m2G2,MILDLY DECREASED: 60-89 ml/min/1.73 m2G3A,MILDLY TO MODERATELY DECREASED: 45-59 ml/min/1.73 m2G3B,MODERATELY TO SEVERELY DECREASED: 30-44 ml/min/1.73 m2G4,SEVERELY DECREASED: 15-29 ml/min/1.73 m2G5,KIDNEY FAILURE: <15 ml/min/1.73 m2 PLASMA SPECIMEN / Unknown 02/04/2018 6:15 PM CDT 02/04/2018 6:24 PM CDT us Generic Conversion Md RED LABORATORY Final R esult [facility] [address] [place] [address], * (ABNORMAL) CBC W/DIFF AUTOMATED (02/04/2018 6:15 PM CDT) WBC 4.6 4.5 - 10.8 x10'3/uL 02/04/2018 6:34 PM CDT [facility] RBC 4.49(L) 4.50 - 6.10 x10'6/uL 02/04/2018 6:34 PM CDT [facility] HGB 12.4(L) 13.0 - 18.0 G/DL 02/04/2018 6:34 PM CDT [facility] HCT 36.9(L) 37.0 - 52.0 % 02/04/2018 6:34 PM CDT [facility] MCV 82.2 78.0 - 100.0 FL 02/04/2018 6:34 PM CDT [facility] MCH 27.6 27.0 - 31.0 PG 02/04/2018 6:34 PM CDT [facility] MCHC 33.6 33.0 - 36.0 G/DL 02/04/2018 6:34 PM CDT [facility] RDW 15.1(H) 11.5 - 14.5 % 02/04/2018 6:34 PM CDT [facility] PLT 88(L) 150 - 350 x10'3/uL 02/04/2018 6:34 PM CDT [facility] MPV 10.8(H) 7.4 - 10.4 FL 02/04/2018 6:34 PM CDT [facility] SEG NEUTROPHILS 75.9 % 8 6:57 PM CDT [facility] LYMPHOCYTES 12.5 % 02/04/2018 6:57 PM CDT [facility] MONOCYTES 8.8 % 02/04/2018 6:57 PM CDT [facility] EOSINOPHILS 2.2 % 02/04/2018 6:57 PM CDT [facility] BASOPHILS 0.4 % 02/04/2018 6:57 PM CDT [facility] IMMATURE GRANS % 0.2 % 02/05/20 18 6:57 PM CDT [facility] NRBC 0.0 % 02/04/2018 6:57 PM CDT [facility] ABS. NEUTROPHILS 3.49 1.60 - 8.30 x10'3/uL 02/04/2018 6:57 PM CDT [facility] ABS. LYMPHOCYTES 0.58(L) 0.80 - 4.70 x10'3/uL 02/04/2018 6:57 PM CDT [facility] ABS. MONOCYTES 0.40 0.00 - 1.50 x10'3/uL 02/04/2018 6:57 PM CDT [facility] ABS. EOSINOPHILS 0.10 0.00 - 0.40 x10'3/uL 02/04/2018 6:57 PM CDT [facility] ABS. BASOPHILS 0.02 0.00 - 0.20 x10'3/uL 02/04/2018 6:57 PM CDT [facility] ABS. IMMATURE GRANULOCYTES 0.01 0.00 - 0.03 x10'3/uL 02/04/2018 6:57 PM CDT [facility] ABS. NUCLEATED RBC'S 0.00 0.00 x10'3/uL 02/04/2018 6:57 PM CDT [facility] PLT MORPH. DECREASED 02/04/2018 6:57 PM CDT [facility] RBC MORPHOLOGY NORMAL 02/04/2018 6:57 PM CDT [facility] OTHER (type in comments) 02/04/2018 6:15 PM CDT 02/04/2018 6:24 PM CDT Comment:WHOLE BLOOD SAMPLE us Generic Conversion Md RED LAB[facility] Final R esult [facility] [address] [place] [address], [place] [phone] * BETA-HYDROXYBUTYRATE (02/04/2018 6:15 PM CDT) BETA-HYDROXYBUT YRATE 0.0 0.0 - 0.3 MMOL/L 02/04/2018 6:30 PM CDT [facility] SERUM OR PLASMA SPECIMEN / Unknown 02/04/2018 6:15 PM CDT 02/04/2018 6:24 PM CDT us Generic Conversion Md [facility] Final R critical access hospital Performing Organization Address City/[facility]/ZIP Co de Phone Number [facility] [address] [place] [address], [place] [phone] * (ABNORMAL) AMMONIA (02/04/2018 6:15 PM CDT) AMMONIA 67(H) 11 - 32 UMOL/L 02/04/2018 6:40 PM CDT [facility] Comment:MILD HEMOLYSIS, RESU LT MAY BE AFFECTED. PLASMA SPECIMEN / Unknown 02/04/2018 6:15 PM CDT 02/04/2018 6:24 PM CDT us Generic Conversion Md RED [facility] Final R esult [facility] [place] [address], [place] [phone] * (ABNORMAL) URINALYSIS WI REFLEX TO CULTURE (02/04/2018 6:01 PM CDT) COLOR (U) YELLOW 02/04/2018 6:15 PM CDT [facility] TRANSPARENCY CLEAR 02/04/2018 6:15 PM CDT [facility] SPECIFIC GRAVITY (U) 1.010 1.000 - 1.025 02/04/2018 6:15 PM CDT [facility] U PH 6.0 5.0 - 8.0 02/04/2018 6:15 PM CDT [facility] LEUKOCYTES (U) NEGATIVE NEGATIVE 02/04/2018 6:15 PM CDT [facility] NITRITES NEGATIVE NEGATIVE 02/04/2018 6:15 PM CDT [facility] PROTEIN (U) NEGATIVE NEGATIVE 02/04/2018 6:15 PM CDT [facility] URINE GLUCOSE 3+(A) NEGATIVE 02/04/2018 6:15 PM CDT [facility] KETONES MG/DL (U) NEGATIVE NEGATIVE 02/04/2018 6:15 PM CDT [facility] UROBILINOGEN 2.0(H) <1.0 EU/DL 02/04/2018 6:15 PM CDT [facility] BILIRUBIN (U) NEGATIVE NEGATIVE 02/04/2018 6:15 PM CDT [facility] BLOOD (U) NEGATIVE NEGATIVE 02/04/2018 6:15 PM CDT [facility] WBC/HPF 0-5 0 - 5 /HPF 02/04/2018 6:15 PM CDT [facility] EPI/HPF RARE /LPF 02/04/2018 6:15 PM CDT [facility] CULTURE & SENSITIVITY INDICATED? NOT INDICATED 02/04/2018 6:15 PM CDT [facility] OTHER (type in comments) 02/04/2018 6:01 PM CDT 02/04/2018 6:08 PM CDT Comment:URINE SPECIMEN~URINE SPECIMEN us Generic Conversion Md RED URINE ORDERABLES Final Result [facility] [address] [place] [address], documented in this encounter Visit Diagnoses Diagnosis Type 2 diabetes mellitus with hyperglycemia (CMS/HCC HHS/HCC) Type II or unspecified type diabetes mellitus without mention of complication, not stated as uncontrolled documented in this encounter
--- OUTSIDE RECORDS SUMMARY | 2024-05-08 06:52 | XMS_ITS | Encounter Summary ---
Author Organization [facility] Address [facility]. [place], [place] [address] [place] [address] Care Team Providers Care Auto Clutch Rebuilder Name Role Phone Braydon Pavon Primary Care Provider [phone] Reason for Visit * Reason Comments Back [...] CDT - 03/02/2019 9:50 PM CDT Emergency [facility] [place] [address] Gerry Faustin MD [address] [place] [address] [phone] Back Pain (Pt has multiple health issues. [...] 2 (two) times daily. vitamin D2, ergocalciferol, [address]56[address] UNITS capsule Take 50,000 Units by mouth [...] He apparently used to see someone at [facility] and was starting to see someone at [facility] and that something happened with his insurance. He states that the specialistin [facility] did not take his insurance either. He states over the last 2 weeks he said progressive pain to the back right flank area which she believes is from his liver. He also recently was seen[facility] after coughing and vomiting up [...] (two) times daily. ??? vitamin D2, ergocalciferol, 41682 UNITS capsule Take 50,000 Units by mouth [...] file Gets together: Not on file Attends mu-ism service: Not on file Active member of [...] that he should probably just go rightto [facility] to be evaluated. I told him that [...] adamant about leaving and going directly to [facility] although he would not say which hospital [...] Contact Info) Description 05/10/2024 11:40 AM PUBLIC RELATIONS ACCOUNT SUPERVISOR Office Visit [facility] Medical Group Diabetes and Endocrinology - [address] [phone] Eva Power MD [address] [place] [address] documented as of this encounter Visit Diagnoses Diagnosis Chronic liver disease- Primary Unspecified chronic liver disease without mention of alcohol documented in this encounter Care Teams Auto Clutch Rebuilder Relationship Specialty Start Date End Date Braydon Pavon PA [address] [place] [address] PCP - General PHYSICIAN SEMICONDUCTOR WAFERS TESTER 03/02/19 documented as of this encounter
--- OUTSIDE RECORDS SUMMARY | 2024-05-08 06:52 | XMS_ITS | Encounter Summary ---
Author Organization [facility] Address [address] [place] [address]. [place] [address] [place] [address] Care Team Providers Care Parts Counter Representative Name Role Phone Braydon Pavon Primary Care Provider [phone] Encounter Details Date Type Department Care Team [...] COVID-19? No / Unsure 03/19/2021 6:15 AM SKATE HOP documented as of this encounter Plan of Treatment Upcoming Encounters Date Type Department Care Team (Late st Contact Info) Description 05/10/2024 11:40 AM SKATE HOP Office Visit [facility] Medical Group Diabetes and Endocrinology - [address] [phone] Eva Power MD [address] [place] [address] documented as of this encounter Visit Diagnoses Not on filedocumented in this encounter Care Teams Parts Counter Representative Relationship Specialty Start Date End Date Braydon Pavon PA [address] [place] [address] PCP - General PHYSICIAN PROPERTY ACCOUNTANT 03/02/19 documented as of this encounter
--- OUTSIDE RECORDS SUMMARY | 2024-05-08 06:52 | XMS_ITS | Encounter Summary ---
Author Organization [facility] Address [address] [place] [address]. [place] [address] [place] [address] Care Team Providers Care Aircraft Restorer Name Role Phone Unavailable Primary Care Provider Unavailabl e Encounter Details Date Type Department Care Team (Late Contact Info) Description 02/02/2018 Abstract [facility] [address] [facility] [place] [address] Gerry Faustin MD [address] [place] [address] Social History Tobacco Use Types Packs/Day [...] (Late Contact Info) Description 05/10/2024 11:40 AM WAGE AND SALARY SPECIALIST Office Visit [facility] Medical Group Diabetes and Endocrinology - [address] [phone] Eva Power MD [address] [place] [phone] documented as of this encounter Procedures Procedure Name Priority Date/Time Associated Diagnosis Comments COMPREHENSIVE METABOLIC PANEL STAT 02/02/2018 12:05 AM CDT CBC W/DIFF AUTOMATED STAT 02/02/2018 12:05 AM CDT documented in this encounter Results * (ABNORMAL) COMPREHENSIVE METABOLIC PANEL (02/02/2018 12:05 AM CDT) SODIUM S/P/B 141 136 - 145 MMOL/L 02/02/2018 12:25 AM CDT [facility] POTASSIUM S/P/B 3.8 3.5 - 5.1 MMOL/L 02/02/2018 12:25 AM CDT [facility] CHLORIDE S/P/B 104 98 - 107 MMOL/L 02/02/2018 12:25 AM CDT [facility] CO2 24.1 21.0 - 32.0 MMOL/L 02/02/2018 12:25 AM CDT [facility] GLUCOSE 203(H) 70 - 140 MG/DL 02/02/2018 12:25 AM CDT [facility] BUN 12 6 - 24 MG/DL 02/02/2018 12:25 AM CDT [facility] CREATININE S/P/B 0.99 0.70 - 1.30 MG/DL 02/02/2018 12:25 AM CDT [facility] CALCIUM S/P/B 9.4 8.4 - 10.5 MG/DL 02/02/2018 12:25 AM CDT [facility] BILIRUBIN TOTAL S/P/B 1.3(H) 0.2 - 1.0 MG/DL 02/02/2018 12:25 AM CDT [facility] ALKALINE PHOSPHATASE S/P/B 99 45 - 115 U/L 02/02/2018 12:25 AM CDT [facility] AST 94(H) 15 - 37 U/L 02/02/2018 12:25 AM CDT [facility] ALT 116(H) 16 - 63 U/L 02/02/2018 12:25 AM CDT [facility] TOTAL PROTEIN S/P/B 7.9 6.4 - 8.2 G/DL 02/02/2018 12:25 AM CDT [facility] ALBUMIN S/P/B 3.7 3.4 - 5.0 G/DL 02/02/2018 12:25 AM CDT [facility] ANION GAP 12.9 MMOL/L 02/02/2018 12:25 AM CDT [facility] Comment:REFERENCE RANGE NOT ESTABLISHED OSMOLALITY (CALC) 298 MOSM/KG 018 12:25 AM CDT [facility] Comment:REFERENCE RANGE NOT ESTABLISHED EGFR NON-AFR. AMER. >90 >89 ML/MIN/1.7 3 M2 02/02/2018 12:25 AM CDT [facility] Comment: THE ESTIMATED GFR IS CALCULATED [...] ML/MIN/1.7 3 M2 02/02/2018 12:25 AM CDT [facility] Comment: THE ESTIMATED GFR IS CALCULATED [...] Conversion Md RED LABORATORY Final R esult [facility] [address] [place] [address], * (ABNORMAL) CBC W/DIFF AUTOMATED (02/02/2018 12:05 AM CDT) WBC 6.2 4.5 - 10.8 x10'3/uL 02/02/2018 12:14 AM CDT [facility] RBC 5.17 4.50 - 6.10 x10'6/uL 02/02/2018 12:14 AM CDT [facility] HGB 14.5 13.0 - 18.0 G/DL 02/02/2018 12:14 AM CDT [facility] HCT 42.4 37.0 - 52.0 % 02/02/2018 12:14 AM CDT [facility] MCV 82.0 78.0 - 100.0 FL 02/02/2018 12:14 AM CDT [facility] MCH 28.0 27.0 - 31.0 PG 02/02/2018 12:14 AM CDT [facility] MCHC 34.2 33.0 - 36.0 G/DL 02/02/2018 12:14 AM CDT [facility] RDW 15.2(H) 11.5 - 14.5 % 02/02/2018 12:14 AM CDT [facility] PLT 100(L) 150 - 350 x10'3/uL 02/02/2018 12:14 AM CDT [facility] MPV 10.4 7.4 - 10.4 FL 02/02/2018 12:14 AM CDT [facility] SEG NEUTROPHILS 72.2 % 8 12:14 AM CDT [facility] LYMPHOCYTES 13.8 % 02/02/2018 12:14 AM CDT [facility] MONOCYTES 9.5 % 02/02/2018 12:14 AM CDT [facility] EOSINOPHILS 2.9 % 02/02/2018 12:14 AM CDT [facility] BASOPHILS 1.0 % 02/02/2018 12:14 AM CDT [facility] IMMATURE GRANS % 0.6 % 02/03/20 18 12:14 AM CDT [facility] NRBC 0.0 % 02/02/2018 12:14 AM CDT [facility] ABS. NEUTROPHILS 4.48 1.60 - 8.30 x10'3/uL 02/02/2018 12:14 AM CDT [facility] ABS. LYMPHOCYTES 0.86 0.80 - 4.70 x10'3/uL 02/02/2018 12:14 AM CDT [facility] ABS. MONOCYTES 0.59 0.00 - 1.50 x10'3/uL 02/02/2018 12:14 AM CDT [facility] ABS. EOSINOPHILS 0.18 0.00 - 0.40 x10'3/uL 02/02/2018 12:14 AM CDT [facility] ABS. BASOPHILS 0.06 0.00 - 0.20 x10'3/uL 02/02/2018 12:14 AM CDT [facility] ABS. IMMATURE GRANULOCYTES 0.04(H) 0.00 - 0.03 x10'3/uL 02/02/2018 12:14 AM CDT [facility] ABS. NUCLEATED RBC'S 0.00 0.00 x10'3/uL 02/02/2018 12:14 AM CDT [facility] OTHER (type in comments) 02/02/2018 12:05 AM CDT 02/02/2018 12:07 AM CDT Comment:WHOLE BLOOD SAMPLE us Generic Conversion Md RED LABORATORY Final R esult [facility] [address] [place] [address], documented in this encounter Visit Diagnoses Diagnosis Noninfective gastroenteritis and colitis Other and unspecified noninfectious gastroenteritis and colitis documented in this encounter
--- OUTSIDE RECORDS SUMMARY | 2024-05-08 06:52 | XMS_ITS | Encounter Summary ---
Author Organization [facility] Address [address] [place] [address]. [place] [address] [place] [address] Care Team Providers Care Information Systems Operator Name Role Phone Unavailable Primary Care Provider Unavailabl e Encounter Details Date Type Department Care Team (Latest Contact Info) Description 11/16/2017 Abstract [facility] Social [...] Contact Info) Description 05/10/2024 11:40 AM SUPERVISOR TELEPHONE INFORMATION Office Visit [facility] Diabetes and Endocrinology - [address] [phone] Eva Power MD [address] [place] [phone] documented as of this encounter Visit Diagnoses Not on filedocumented in this encounter
--- OUTSIDE RECORDS SUMMARY | 2024-05-08 06:52 | XMS_ITS | Encounter Summary ---
Author Organization [facility] Address [address] [place] [address]. [place] [address] [place] [address] Care Team Providers Care Video Conference Specialist Name Role Phone Braydon Pavon Primary Care Provider [phone] Encounter Details Date Type Department Care Team [...] st Contact Info) Description 05/10/2024 11:40 AM SUGAR HOUSE SUPERVISOR Office Visit [facility] Medical Group Diabetes and Endocrinology - [place] [address] [place] [address] Eva Power MD [address] [place] [address] documented as of this encounter Visit Diagnoses Not on filedocumented in this encounter Care Teams Video Conference Specialist Relationship Specialty Start Date End Date Braydon Pavon PA [address] [place] [address] PCP - General PHYSICIAN ON AIR PERSONALITY 03/02/19 documented as of this encounter
--- OUTSIDE RECORDS SUMMARY | 2024-05-08 06:52 | XMS_ITS | Encounter Summary ---
Author Organization [facility] Address [address] [place] [address]. [place], [place] [address] [place] [address] Care Team Providers Care Control Manager Name Role Phone Braydon Pavon Primary Care Provider [phone] Reason for Visit * Reason Comments Anxiety Encounter Details Date Type Department Care Team ([facility] st Contact Info) Description 03/19/2021 6:13 AM EX CHEF - 03/19/2021 6:20 AM [facility] Emergency [place] [facility] [address] [facility] [place] [address] Gerry Faustin MD [address] [place] [address] Anxiety Discharge Disposition: Home or Self Care [...] COVID-19? No / Unsure 03/19/2021 6:15 AM EX CHEF documented as of this encounter Last Filed Vital Signs Vital Sign Reading Time Taken Comments Blood Pressure 159/73 03/19/2021 6:18 AM EX CHEF Pulse 98 03/19/2021 6:18 AM EX CHEF Temperature 36.4 ??C (97.5 ??F) 03/19/2021 6:18 AM CS T Respiratory Rate 16 03/19/2021 6:18 AM EX CHEF Oxygen Saturation 98% 03/19/2021 6:18 AM EX CHEF Inhaled Oxygen Concentration - - Weight 117.9 kg (260 lb) 03/19/2021 6:18 AM EX CHEF Height 172.7 cm (5' 8 ) 03/19/2021 6:18 AM EX CHEF Body Mass Index 39.53 03/19/2021 6:18 AM EX CHEF documented in this encounter Medications at Time [...] hyperglycemia, with long-term current use of insulin ([facility]) Test 4 times daily 200 strip 11 09/06/2019 rifaximin 200 MG tablet Take 550 mg by mouth 2 (two) times daily. vitamin D2, ergocalciferol, 73154 UNITS capsule Take 50,000 Units by mouth [...] left prior to being seen by physician. CHEF * Mere Hooker RN - 03/19/2021 6:23 [...] in room nurse took to patient outside. CHEF * Mere Hooker RN - 03/19/2021 6:16 AM CST Seen in [facility] yesterday was given oxycodone and has had three tablets woke up this am and felt panicked so I drove here chetna been having problems with the other er CHEF * Gerry Faustin MD - 03/19/2021 6:13 [...] 18 MG/3ML injection ??? vitamin D2, ergocalciferol, 88395 UNITS capsule Take 50,000 Units by mouth [...] medications on file Gerry Faustin MD 03/19/[address] CHEF documented in this encounter Plan of Treatment Upcoming Encounters Date Type Department Care Team (Late st Contact Info) Description 05/10/2024 11:40 AM EX CHEF Office Visit [facility] Medical Group Diabetes and Endocrinology - [address] [phone] Eva Power MD [address] [place] [address] documented as of this encounter Visit Diagnoses Diagnosis Anxiety- Primary Anxiety state, unspecified Patient left without being seen Surgical or other procedure not carried out because of patient's decision documented in this encounter Care Teams Control Manager Relationship Specialty Start Date End Date Braydon Pavon PA [address] [place] [address] PCP - General PHYSICIAN LIVE AMMUNITION INSPECTOR 03/02/19 documented as of this encounter
--- OUTSIDE RECORDS SUMMARY | 2024-05-08 06:52 | XMS_ITS | Encounter Summary ---
Author Organization [facility] Address [address] [place] [address]. [place], [place] [address] [place] [address] Care Team Providers Care Account Representative Name Role Phone Unavailable Primary Care Provider Unavailabl e Encounter Details Date Type Department Care Team (Latest Contact Info) Description 12/04/2017 Abstract [facility] Medical Group Social History Tobacco Use [...] Spouse; Other; Please call Mayra Power's Nurse [phone] Phone Thank You. Alyse Cote - 04 Dec 2017 1:55 PM TASK EDITED I spoke with Mayra, spouse of patient, and informed her patient has [employer] insurance and we are not in network. I advised Mayra if patient was not able to change insurance to [place], [place], or [place] under Managed Medicaid, patient would [...] st Contact Info) Description 05/10/2024 11:40 AM ATTENDANT CAMPGROUND Office Visit [facility] Medical Group Diabetes and Endocrinology - [address] [address] Eva Power MD [address] [place] [phone] documented as of this encounter Visit Diagnoses Not on filedocumented in this encounter
--- OUTSIDE RECORDS SUMMARY | 2024-05-08 06:52 | XMS_ITS | Encounter Summary ---
Author Organization [facility] Address [address] [place] [address]. [place] [address] [place] [address] Care Team Providers Care Lead Neurodiagnostic Technologist Name Role Phone Unavailable Primary Care Provider Unavailabl e Encounter Details Date Type Department Care Team (Latest Contact Info) Description 01/20/2018 Scan [facility] Medical Group Sarina Gamez MD Social History [...] st Contact Info) Description 05/10/2024 11:40 AM VICE PRESIDENT OF MARKETING Office Visit [facility] Medical Group Diabetes and Endocrinology - [address] [address] Eva Power MD [address] [place] [phone] documented as of this encounter Visit Diagnoses Not on filedocumented in this encounter
--- OUTSIDE RECORDS SUMMARY | 2024-05-08 06:52 | XMS_ITS | Encounter Summary ---
Author Organization [facility] Address [address] [place] [address]. [place] [address] [place] [address] Care Team Providers Care Missile Tracking Technician Name Role Phone Unavailable Primary Care Provider Unavailabl e Encounter Details Date Type Department Care Team (Late st Contact Info) Description 06/29/2018 [facility] Outpatient Rehab [address] [place] [address] , Sarina Dotson MD Social [...] Contact Info) Description 05/10/2024 11:40 AM RN TELE Office Visit [facility] Medical Group Diabetes and Endocrinology - [address] [phone] Eva Power MD [address] [place] [address] documented as of this encounter Visit Diagnoses Diagnosis Radiculopathy of lumbar region Thoracic or lumbosacral neuritis or radiculitis, unspecified documented in this encounter
--- OUTSIDE RECORDS SUMMARY | 2024-05-08 06:52 | XMS_ITS | Encounter Summary ---
Author Organization [facility] Address [address] [place] [address]. [place] [address] [place] [address] Care Team Providers Care Ornamental Bronze Worker Name Role Phone Braydon Pavon Primary Care Provider [phone] Reason for Visit * Reason Onset Date Comments Medication Problem 09/06/2019 Encounter Details Date Type Department Care Team (Late st Contact Info) Description 09/06/2019 Telephone [facility] Medical Group Diabetes and Endocrinology - [address] [address] [place] [address] [place] [address] Medication Problem Social History Tobacco Use [...] new script be sent to [facility]. Callback # [phone] documented in this encounter Plan of Treatment Upcoming Encounters Date Type Department Care Team (Late st Contact Info) Description 05/10/2024 11:40 AM INFUSION THERAPY NURSE Office Visit [facility] Medical Group Diabetes and Endocrinology - [address] [phone] Eva Power MD [address] [place] [phone] documented as of this encounter Visit Diagnoses Diagnosis Type 2 diabetes mellitus with hyperglycemia, with long-term current use of insulin ([facility])- Primary documented in this encounter Care Teams Ornamental Bronze Worker Relationship Specialty Start Date End Date Braydon Pavon PA [address] [place] [address] PCP - General PHYSICIAN COMMUNITY MUSIC THERAPIST 03/02/19 documented as of this encounter
--- OUTSIDE RECORDS SUMMARY | 2024-05-08 06:52 | XMS_ITS | Encounter Summary ---
Author Organization [facility] Address [address] [place] [address]. [place] [address] [place] [address] Care Team Providers Care Combine Driver Name Role Phone Braydon Pavon Primary Care Provider [phone] Encounter Details Date Type Department Care Team (Late Contact Info) Description 05/13/2019 Orders Only [facility] [address] [address] Abi Vidal, [address] [place] [address] Social History Tobacco Use Types Packs/Day Years [...] (Late Contact Info) Description 05/10/2024 11:40 AM PIANO BENCH ASSEMBLER Office Visit [facility] Medical Group Diabetes and Endocrinology - [address] [phone] Eva Power MD [address] [place] [address] documented as of this encounter Visit Diagnoses Diagnosis Left knee pain- Primary Pain in joint, lower leg documented in this encounter Care Teams Combine Driver Relationship Specialty Start Date End Date Braydon Pavon PA [address] [place] [address] PCP - General PHYSICIAN BAIT MAN 03/02/19 documented as of this encounter
--- OUTSIDE RECORDS SUMMARY | 2024-05-08 06:52 | XMS_ITS | Encounter Summary ---
Author Organization [facility] Address [address] [place] [address]. [place] [address] [place] [address] Care Team Providers Care Casing Crew Name Role Phone Braydon Pavon Primary Care Provider [phone] Encounter Details Date Type Department Care Team (Late Contact Info) Description 05/11/2019 Orders Only [facility] [address] [address] Lacy Hurtado CNA Social History [...] (Late Contact Info) Description 05/10/2024 11:40 AM RE EXAMINER Office Visit [facility] Medical Group Diabetes and Endocrinology - [address] [phone] Eva Power MD [address] [place] [address] documented as of this encounter Visit Diagnoses Diagnosis Pain- Primary Generalized pain documented in this encounter Care Teams Casing Crew Relationship Specialty Start Date End Date Braydon Pavon PA [address] [place] [address] PCP - General PHYSICIAN ASSISTANT WINEMAKER 03/02/19 documented as of this encounter
--- OUTSIDE RECORDS SUMMARY | 2024-05-08 06:52 | XMS_ITS | Encounter Summary ---
Author Organization [facility] Address [address] [place] [address]. [place] [address] [place] [address] Care Team Providers Care Director Imaging Name Role Phone Unavailable Primary Care Provider Unavailabl e Encounter Details Date Type Department Care Team (Latest Contact Info) Description 03/09/2018 Scan [facility] Medical Group Sarina Gamez MD Social [...] st Contact Info) Description 05/10/2024 11:40 AM WIRE FRAME LAMPSHADE MAKER Office Visit [facility] Medical Group Diabetes and Endocrinology - [address] [phone] Eva Power MD [address] [place] [phone] documented as of this encounter Visit Diagnoses Not on filedocumented in this encounter
--- OUTSIDE RECORDS SUMMARY | 2024-05-08 06:52 | XMS_ITS | Encounter Summary ---
Author Organization [facility] Address [address] [place] [address]. [place] [address] [place] [address] Care Team Providers Care Sales Planning Coordinator Name Role Phone Braydon Pavon Primary Care Provider [phone] Encounter Details Date Type Department Care Team (Late Contact Info) Description 12/23/2019 Transcribe Orders [facility] Pre Access Team [address] [place] [address] Braydon Pavon PA [address] [place] [address] Social History Tobacco Use Types Packs/Day Years [...] (Late Contact Info) Description 05/10/2024 11:40 AM ENROLLMENT MANAGEMENT DIRECTOR Office Visit [facility] Medical Group Diabetes and Endocrinology - [address] [phone] Eav Power MD [address] [place] [address] documented as of this encounter Visit Diagnoses Diagnosis Obstructive sleep apnea (adult) (pediatric)- Primary documented in this encounter Care Teams Sales Planning Coordinator Relationship Specialty Start Date End Date Braydon Pavon PA [address] [place] [address] PCP - General PHYSICIAN MOBILE PET GROOMER 03/02/19 documented as of this encounter
--- OUTSIDE RECORDS SUMMARY | 2024-05-08 06:52 | XMS_ITS | Encounter Summary ---
Author Organization [facility] Address [address] [place] [address]. [place] [address] [place] [address] Care Team Providers Care Assistant Auditor Name Role Phone Braydon Pavon Primary Care Provider [phone] Encounter Details Date Type Department Care Team [...] st Contact Info) Description 05/10/2024 11:40 AM TENTERING MACHINE OFF BEARER Office Visit [facility] Medical Group Diabetes and Endocrinology - [place] [address] [place] [address] Eva Power MD [address] [place] [address] documented as of this encounter Visit Diagnoses Not on filedocumented in this encounter Care Teams Assistant Auditor Relationship Specialty Start Date End Date Braydon Pavon PA [address] [place] [address] PCP - General PHYSICIAN PATTERN ROOM ATTENDANT 03/02/19 documented as of this encounter
--- OUTSIDE RECORDS SUMMARY | 2024-05-08 06:52 | XMS_ITS | Encounter Summary ---
Author Organization [facility] Address [address] [place] [address]. [place], [place] [address] [place] [address] Care Team Providers Care Cook Relief Name Role Phone None, Provider Primary Care Provider Unavaila ble Reason for Visit * Reason Comments Dental Problem Encounter Details Date Type Department Care Team (Late st Contact Info) Description 02/08/2019 8:30 PM CDT - 02/08/2019 10:06 PM CDT Emergency [place] [address] [place] [address] [place] [address] Dental Problem Discharge Disposition: Left Against Medical [...] Contact Info) Description 05/10/2024 11:40 AM PROOF INSPECTOR Office Visit [facility] Medical Group Diabetes and Endocrinology - [address] [phone] Eva Power MD [address] [place] [address] documented as of this encounter Visit Diagnoses Not on filedocumented in this encounter Care Teams Cook Relief Relationship Specialty Start Date End Date None, Provider, PCP - General 02/08/19 03/01/19 documented as of this encounter
--- OUTSIDE RECORDS SUMMARY | 2024-05-08 06:52 | XMS_ITS | Encounter Summary ---
Author Organization [facility] Address [address] [place] [address]. [place] [address] [place] [address] Care Team Providers Care Manager Utilization Management Name Role Phone None, Provider Primary Care Provider Braydon Piedra Primary Care Provider [phone] Reason for Visit * Reason Comments Image [...] st Contact Info) Description 05/10/2024 11:40 AM GUNNER'S MATE Office Visit [facility] Medical Group Diabetes and Endocrinology - [address] [phone] Eva Power MD [address] [place] [address] documented as of this encounter Procedures Procedure Name Priority Date/Time Associated Diagnosis Comments IMAGE GENERIC Routine 07/19/2018 documented in this encounter Results * IMAGE STUDY (07/19/2018) Anatomical Region Laterality Modality Other us Documents Scanned SCANNING Final Result documented in this encounter Visit Diagnoses Not on filedocumented in this encounter Care Teams Manager Utilization Management Relationship Specialty Start Date End Date None, Provider, PCP - General 02/08/19 03/01/19 Braydon Pavon PA [address] [place] [address] PCP - General PHYSICIAN OPHTHALMIC TECHNOLOGIST 03/02/19 documented as of this encounter
--- OUTSIDE RECORDS SUMMARY | 2024-05-08 06:52 | XMS_ITS | Encounter Summary ---
Author Organization [facility] Address [address] [place] [address]. [place] [address] [place] [address] Care Team Providers Care Rubber Compounder Name Role Phone Unavailable Primary Care Provider Unavailabl e Encounter Details Date Type Department Care Team (Late Contact Info) Description 06/30/2018 [facility] Emergency Room [address] [place] [address] [place] [address] Lukas Corea MD [address] [place] [address] Social History Tobacco Use Types Packs/Day Years [...] (Late Contact Info) Description 05/10/2024 11:40 AM VOIP NETWORK TECHNICIAN Office Visit [facility] Medical Group Diabetes and Endocrinology - [address] [phone] Eva Power MD [address] [place] [address] documented as of this encounter Procedures Procedure Name Priority Date/Time Associated Diagnosis Comments COMPREHENSIVE METABOLIC PANEL STAT 06/30/2018 6:04 AM VOIP NETWORK TECHNICIAN CBC W/DIFF AUTOMATED STAT 06/30/2018 6:04 AM VOIP NETWORK TECHNICIAN LIPASE STAT 06/30/2018 6:04 AM VOIP NETWORK TECHNICIAN documented in this encounter Results * LIPASE (06/30/2018 6:04 AM VOIP NETWORK TECHNICIAN) LIPASE 117 73 - 393 UNITS/L 06/30/2018 7:30 AM VOIP NETWORK TECHNICIAN [facility] SERUM OR PLASMA SPECIMEN / Unknown 06/30/2018 6:04 AM VOIP NETWORK TECHNICIAN 06/30/2018 7:13 AM VOIP NETWORK TECHNICIAN us Generic Conversion Md RED LABOR[facility]ORY Final R esult [facility] [address] [facility] [place] [id number], * (ABNORMAL) COMPREHENSIVE METABOLIC PANEL (06/30/2018 6:04 AM VOIP NETWORK TECHNICIAN) Pathologist [facility] SODIUM S/P/B 142 136 - 145 MMOL/L 06/30/2018 7:30 AM [facility] POTASSIUM S/P/B 3.7 3.5 - 5.1 MMOL/L 06/30/2018 7:30 AM [facility] CHLORIDE S/P/B 104 98 - 107 MMOL/L 06/30/2018 7:30 AM [facility] CO2 31.0 21.0 - 32.0 MMOL/L 06/30/2018 7:30 AM [facility] GLUCOSE 144(H) 70 - 140 MG/DL 06/30/2018 7:30 AM [facility] BUN 15 6 - 24 MG/DL 06/30/2018 7:30 AM [facility] CREATININE S/P/B 0.93 0.70 - 1.30 MG/DL 06/30/2018 7:30 AM [facility] CALCIUM S/P/B 9.7 8.4 - 10.5 MG/DL 06/30/2018 7:30 AM [facility] BILIRUBIN TOTAL S/P/B 0.9 0.2 - 1.0 MG/DL 06/30/2018 7:30 AM [facility] ALKALINE PHOSPHATASE S/P/B 73 45 - 115 U/L 06/30/2018 7:30 AM [facility] AST 43(H) 15 - 37 U/L 06/30/2018 7:30 AM [facility] ALT 56 16 - 63 U/L 06/30/2018 7:30 AM [facility] TOTAL PROTEIN S/P/B 7.7 6.4 - 8.2 G/DL 06/30/2018 7:30 AM [facility] ALBUMIN S/P/B 3.4 3.4 - 5.0 G/DL 06/30/2018 7:30 AM [facility] ANION GAP 7.0 MMOL/L 06/30/2018 7:30 AM [facility] Comment:REFERENCE RANGE NOT ESTABLISHED OSMOLALITY (CALC) 297 MOSM/KG 06/30/2018 7:30 AM [facility] Comment:REFERENCE RANGE NOT ESTABLISHED EGFR NON-AFR. AMER. >90 >89 ML/MIN/1 .73 M2 06/30/2018 7:30 AM [facility] EGFR AFR. AMER. >90 >89 ML/MIN/1 .73 M2 06/30/2018 7:30 AM [facility] GFR NOTES THE ESTIMATED GFR IS CALCULATED USING THE 2009 CKD-EPI EQUATION. THE FOLLOWING CATEGORIES FOR GRADING RENAL FUNCTION ARE RECOMMENDED BY THE INTERNATIONAL SOCIETY OF NEPHROLOGY (KDIGO 2012 CLINICAL PRACTICE GUIDELINE). 06/30/2018 7:30 AM [facility] Comment: G1,NORMAL OR HIGH: >89 ml/min/1.73 m2G2,MILDLY DECREASED: 60-89 ml/min/1.73 m2G3A,MILDLY TO MODERATELY DECREASED: 45-59 ml/min/1.73 m2G3B,MODERATELY TO SEVERELY DECREASED: 30-44 ml/min/1.73 m2G4,SEVERELY DECREASED: 15-29 ml/min/1.73 m2G5,KIDNEY FAILURE: <15 ml/min/1.73 m2 PLASMA SPECIMEN / Unknown 06/30/2018 6:04 AM VOIP NETWORK TECHNICIAN 06/30/2018 7:13 AM VOIP NETWORK TECHNICIAN us Generic Conversion Md RED LABOR[facility]ORY Final R esult [facility] [address] [place] [address], * (ABNORMAL) CBC W/DIFF AUTOMATED (06/30/2018 6:04 AM VOIP NETWORK TECHNICIAN) WBC 5.9 4.5 - 10.8 x10'3/uL 06/30/2018 7:39 AM [facility] RBC 4.83 4.50 - 6.10 x10'6/uL 06/30/2018 7:39 AM [facility] HGB 12.9(L) 13.0 - 18.0 G/DL 06/30/2018 7:39 AM [facility] HCT 39.4 37.0 - 52.0 % 06/30/2018 7:39 AM [facility] MCV 81.6 78.0 - 100.0 FL 06/30/2018 7:39 AM [facility] MCH 26.7(L) 27.0 - 31.0 PG 06/30/2018 7:39 AM [facility] MCHC 32.7(L) 33.0 - 36.0 G/DL 06/30/2018 7:39 AM [facility] RDW 15.5(H) 11.5 - 14.5 % 06/30/2018 7:39 AM [facility] PLT 88(L) 150 - 350 x10'3/uL 06/30/2018 7:39 AM [facility] MPV 12.1(H) 7.4 - 10.4 FL 06/30/2018 7:39 AM [facility] SEG NEUTROPHILS 81.2 % 9 7:52 AM [facility] LYMPHOCYTES 9.4 % 06/30/2018 7:52 AM [facility] MONOCYTES 7.7 % 06/30/2018 7:52 AM [facility] EOSINOPHILS 0.9 % 06/30/2018 7:52 AM [facility] BASOPHILS 0.3 % 06/30/2018 7:52 AM [facility] IMMATURE GRANS % 0.5 % 06/30/19 19 7:52 AM [facility] NRBC 0.0 % 06/30/2018 7:52 AM [facility] ABS. NEUTROPHILS 4.80 1.60 - 8.30 x10'3/uL 06/30/2018 7:52 AM [facility] ABS. LYMPHOCYTES 0.55(L) 0.80 - 4.70 x10'3/uL 06/30/2018 7:52 AM [facility] ABS. MONOCYTES 0.45 0.00 - 1.50 x10'3/uL 06/30/2018 7:52 AM [facility] ABS. EOSINOPHILS 0.05 0.00 - 0.40 x10'3/uL 06/30/2018 7:52 AM [facility] ABS. BASOPHILS 0.02 0.00 - 0.20 x10'3/uL 06/30/2018 7:52 AM [facility] ABS. IMMATURE GRANULOCYTES 0.03 0.00 - 0.03 x10'3/uL 06/30/2018 7:52 AM [facility] ABS. NUCLEATED RBC'S 0.00 0.00 x10'3/uL 06/30/2018 7:52 AM [facility] PLT MORPH. DECREASED 06/30/2018 7:52 AM [facility] RBC MORPHOLOGY 1+ 06/30/2018 7:52 AM [facility] Comment:ANISOCYTOSIS1+POIKIL OCYTOSIS OTHER (type in comments) 06/30/2018 6:04 AM VOIP NETWORK TECHNICIAN 06/30/2018 7:13 AM VOIP NETWORK TECHNICIAN Comment:WHOLE BLOOD SAMPLE us Generic Conversion Md [facility] LAB[facility]ORY Final R esult [facility] [address] [facility] [place], [place] [address] [phone] documented in this encounter Visit Diagnoses Diagnosis Abdominal pain Abdominal pain, unspecified site documented in this encounter
--- OUTSIDE RECORDS SUMMARY | 2024-05-08 06:52 | XMS_ITS | Encounter Summary ---
Author Organization [facility] Address [address] [place] [address]. [place] [address] [place] [address] Care Team Providers Care Neurology Physician Name Role Phone Braydon Pavon Primary Care Provider [phone] Reason for Visit * Reason Onset Date Comments Refill Request 08/04/2019 Encounter Details Date Type Department Care Team (Late st Contact Info) Description 08/04/2019 Telephone [facility] Medical [facility] Diabetes and Endocrinology - [address] [phone] Eva Power MD [address] [place] [address] Refill Request Social History Tobacco Use [...] a refill on the following: QuickPen QuickPen [place] Send to [facility] documented in this encounter Plan of Treatment Upcoming Encounters Date Type Department Care Team (Late st Contact Info) Description 05/10/2024 11:40 AM DOG HAIR CLIPPER Office Visit [facility] Medical Group Diabetes and Endocrinology - [address] [phone] Eva Power MD [address] [place] [address] documented as of this encounter Visit Diagnoses Not on filedocumented in this encounter Care Teams Neurology Physician Relationship Specialty Start Date End Date Braydon Pavon PA [address] [place] [address] PCP - General PHYSICIAN PNEUMATIC PRESS HAND 03/02/19 documented as of this encounter
--- OUTSIDE RECORDS SUMMARY | 2024-05-08 06:52 | XMS_ITS | Encounter Summary ---
Author Organization [facility] Address [address] [place] [address]. [place] [address] [place] [address] Care Team Providers Care Field Agronomist Name Role Phone Braydon Pavon Primary Care Provider [phone] Encounter Details Date Type Department Care Team [...] st Contact Info) Description 05/10/2024 11:40 AM MICROSCOPIST Office Visit [facility] Medical Group Diabetes and Endocrinology - [address] [phone] Eva Power MD [address] [place] [address] documented as of this encounter Visit Diagnoses Not on filedocumented in this encounter Care Teams Field Agronomist Relationship Specialty Start Date End Date Braydon Pavon PA [address] [place] [address] PCP - General PHYSICIAN DAG SPRAYER 03/02/19 documented as of this encounter
--- OUTSIDE RECORDS SUMMARY | 2024-05-08 06:52 | XMS_ITS | Encounter Summary ---
Author Organization [facility] Address [address] [place] [address]. [place] [address] [place] [address] Care Team Providers Care Roll Plugger Machine Operator Name Role Phone Braydon Pavon Primary Care Provider [phone] Reason for Visit * Reason Onset Date Comments Appointment Request 01/27/2024 Encounter Details Date Type Department Care Team (Late st Contact Info) Description 01/27/2024 Telephone [facility] Medical Group Diabetes and Endocrinology - [address] [phone] Eva Power MD [address] [place] [address] Appointment Request Social History Tobacco Use [...] Caller name: Mayra, patients spouse Call back/ext. #:[phone] MyChart: No- caller prefers to be called via telephone Call details: She is requesting to make an appt for the patient. documented in this encounter Plan of Treatment Upcoming Encounters Date Type Department Care Team (Late st Contact Info) Description 05/10/2024 11:40 AM GROCERY CLERK SELLING Office Visit [facility] Medical Group Diabetes and Endocrinology - [address] [phone] Eva Power MD [address] [place] [address] documented as of this encounter Visit Diagnoses Not on filedocumented in this encounter Care Teams Roll Plugger Machine Operator Relationship Specialty Start Date End Date Braydon Pavon PA [address] [place] [address] PCP - General PHYSICIAN PLUMBING ASSEMBLER 03/02/19 documented as of this encounter
--- OUTSIDE RECORDS SUMMARY | 2024-05-08 06:52 | XMS_ITS | Encounter Summary ---
Author Organization [facility] Address [address] [place] [address]. [place] [address] [place] [address] Care Team Providers Care In Home Sales Representative Name Role Phone Braydon Pavon Primary Care Provider [phone] Reason for Referral * (Routine) - New Request Specialty Diagnoses / Procedures Referred By Contac t Referred To Contact Diagnoses Type 2 diabetes mellitus with hyperglycemia, with long-term current use of insulin ([facility]) Procedures CONT GLUC MNTR ANALYSIS I&R Paul Chanel MD [address] [place] [address] Phone: tel: fax: Referral ID Status Reason Start Date Expiration Date V isits Requested Visits Authorized [id number] New Request 02/15/2024 02/14/2025 1 1 Reason for Visit * Reason Comments Type 2 Diabetes New Patient * Consultation (Routine) - New Request Specialty Diagnoses / Procedures Referred By Contac t Referred To Contact ENDOCRINOLOGY Diagnoses Type 2 diabetes mellitus ([facility]) Procedures OFFICE/OUTPT VISIT,JILLIAN ZAMORA IV, [place], PA [address] [place] [address] Phone: tel: fax: Paul Chanel MD [address] [place] [address] Phone: tel:[phone] fax: Referral ID Status Reason Start Date Expiration Date Visits Requested Visits Authorized [id number] New Request Consultatio n 01/26/2024 01/25/2025 1 1 Encounter Details Date Type Department Care Team (Latest Contact Info) Description 02/15/2024 2:00 PM CDT Office Visit [facility] Medical Group Diabetes and Endocrinology - [address] [phone] Paul Chanel MD [facility] [place] [address] Type 2 Diabetes; New Patient Social History [...] 1000 mg in the evening (Dr. Edmond Choi,[facility]) Apr 2019 he was on U-500 R insulin 200 units TID with meals., stopped metformin due to stomach upset ([facility]) Oct 2020 - on U-500 200 units TID, (Dr. Nacho Lindo [facility]) A1c 9.8%. Started Ozempic - did not tolerate? May 2021 - A1c 9.8% May 2023 - saw a new endo Dr. Vikram Mora in [place], [place]. A1c 11.6%. Reported to be on Lantus 50 in themorning and 30 5 in the evening, Humalog 45 units before each meal, noncompliant with that regimen.Changed to Lantus 40 units at bedtime, Humalog 14 units before each meal. Current diabetes regimen: Take Humalog 32 units - first 8 am, eat 1st meal at noon and 8 pm, Pvghes75 units at 8 am and 35 units [...] 250. The only time glucose ever lower [id number] 9 am- noon for a brief 2-3 [...] GI in [place] - Dr. Bev Ellis ([facility]). A1c 7.7 (September 2016); 8.4 (Feb 2018), [...] taking: Reported on 02/15/2024) vitamin D2, ergocalciferol, [address] UNITS capsule Take 50,000 Units by mouth every 30 (thirty) days. (Patient not taking: Reported on 02/15/2024) No current facility-administered medications on file prior to visit. 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 ([facility]/HCC) 07/21/2018 Type 2 diabetes mellitus with hyperglycemia, with long-term current use of insulin ([facility]/HCC) Past Surgical History: Procedure Laterality [...] hyperglycemia, with long-term current use of insulin ([facility]/HCC) - Primary Relevant Medications insulin [...] st Contact Info) Description 05/10/2024 11:40 AM DISTRIBUTION LEAD Office Visit [facility] Medical Group Diabetes and Endocrinology - [address] [phone] Paul Chanel MD [address] [place] [phone] Scheduled Orders Name Type Priority Associated Diagnoses Orde r Schedule CONT GLUC MNTR ANALYSIS I&R Procedures Routine Type 2 diabetes mellitus with hyperglycemia, with long-term current use of insulin ([facility]) Ordered: 02/15/2024 documented as of this encounter Visit Diagnoses Diagnosis Type 2 diabetes mellitus with hyperglycemia, with long-term current use of insulin ([facility])- Primary documented in this encounter Care Teams In Home Sales Representative Relationship Specialty Start Date End Date Braydon Pavon PA [address] [place] [address] PCP - General PHYSICIAN CONVERTING TECHNICIAN 03/02/19 documented as of this encounter
--- OUTSIDE RECORDS SUMMARY | 2024-05-08 06:52 | XMS_ITS | Encounter Summary ---
Author Organization [facility] Address [address] [place] [address]. [place], [place] [address] [place] [address] Care Team Providers Care Machine Clerical Verifier Name Role Phone Unavailable Primary Care Provider Unavailabl e Reason for Visit * Reason Comments Abdominal Pain Weakness Encounter Details Date Type Department Care Team (Late st Contact Info) Description 10/25/2018 4:34 PM CDT - 10/25/2018 6:59 PM CDT Emergency [facility] [address] [place] [address] Abdominal Pain; Weakness Discharge Disposition: Left Against [...] st Contact Info) Description 05/10/2024 11:40 AM BOARD LAYER Office Visit [facility] Medical Group Diabetes and Endocrinology - [address] [phone] Eva Power MD [address] [place] [address] documented as of this encounter Procedures [...] 70 - 109 10/25/2018 5:06 PM CDT [facility] ORDERS INTERFACE 10/25/2018 5:03 PM CDT us Attending Physician Emergency MD POCT ORDERABLES - DEVICE Final Result [facility] ORDERS INTERFACE US documented in this encounter Visit Diagnoses Not on filedocumented in this encounter
--- OUTSIDE RECORDS SUMMARY | 2024-05-08 06:53 | XMS_ITS | Encounter Summary ---
Author Organization [facility] Address [address] [place] [address]. [place] [address] [place] [address] Care Team Providers Care Final Assembler Boat Name Role Phone Unavailable Primary Care Provider Unavailabl e Encounter Details Date Type Department Care Team (Late st Contact Info) Description 08/06/2015 Abstract [facility] [address] [facility] [place] [address] Sean Morfin MD [address] [place] [phone] Social History Tobacco Use Types Packs/Day Years [...] st Contact Info) Description 05/10/2024 11:40 AM GAMING DIRECTOR Office Visit [facility] Medical Group Diabetes and Endocrinology - [address] [phone] Eva Power MD [address] [place] [address] [place], [place] [phone] documented as of this encounter Visit Diagnoses Diagnosis Secondary esophageal varices without bleeding (CMS/HCC HHS/HCC) Esophageal varices without mention of bleeding in diseases classified elsewhere documented in this encounter
--- OUTSIDE RECORDS SUMMARY | 2024-05-08 06:53 | XMS_ITS | Encounter Summary ---
Author Organization [facility] Address [address] [place] [address]. [place] [address] [place] [address] Care Team Providers Care Cable Television Installer Name Role Phone Unavailable Primary Care Provider Unavailabl e Encounter Details Date Type Department Care Team (Late st Contact Info) Description 07/09/[address] [facility] [address] [facility] [place] [address] Sean Morfin MD [address] [place] [phone] Social History Tobacco Use Types Packs/Day Years [...] (Late Contact Info) Description 05/10/2024 11:40 AM EEG TECH Office Visit [facility] Medical Group Diabetes and Endocrinology - [address] [phone] Eva Power MD [address] [place] [address] [place], [place] [phone] documented as of this encounter Visit Diagnoses Diagnosis Obstructive sleep apnea Obstructive sleep apnea (adult) (pediatric) documented in this encounter
--- OUTSIDE RECORDS SUMMARY | 2024-05-08 06:53 | XMS_ITS | Encounter Summary ---
Author Organization [facility] Address [address] [place] [address]. [place] [address] [place] [address] Care Team Providers Care Senior Warehouse Clerk Name Role Phone Unavailable Primary Care Provider Unavailabl e Encounter Details Date Type Department Care Team (Latest Contact Info) Description 09/23/2016 Abstract [facility] Eva Power MD [facility] [place], [place] [phone] Social History Tobacco Use Types Packs/Day Years [...] st Contact Info) Description 05/10/2024 11:40 AM EARLY CHILDHOOD TEACHER Office Visit [facility] Medical Group Diabetes and Endocrinology - [address] [phone] Eva Power MD [facility] [address] [place], [place] [address] documented as of this encounter Visit Diagnoses Not on filedocumented in this encounter
--- OUTSIDE RECORDS SUMMARY | 2024-05-08 06:53 | XMS_ITS | Encounter Summary ---
Author Organization [facility] Address [address] [place] [address]. [place] [address] [place] [address] Care Team Providers Care On Site Property Manager Name Role Phone Unavailable Primary Care Provider Unavailabl e Encounter Details Date Type Department Care Team (Latest Contact Info) Description 08/14/2016 Abstract [facility] Medical Group Social History Tobacco [...] st Contact Info) Description 05/10/2024 11:40 AM MILITARY NURSE Office Visit [facility] Medical Group Diabetes and Endocrinology - [address] [phone] Eva Power MD [address] [place] [phone] documented as of this encounter Visit Diagnoses Not on filedocumented in this encounter
--- OUTSIDE RECORDS SUMMARY | 2024-05-08 06:53 | XMS_ITS | Encounter Summary ---
Author Organization [facility] Address [address] [place] [address]. [place] [address] [place] [address] Care Team Providers Care Physiatrist Name Role Phone Unavailable Primary Care Provider Unavailabl e Encounter Details Date Type Department Care Team (Late Contact Info) Description 10/07/2017 Abstract [facility] [place] [address] Gregg Blandon MD [address] [place], [place] [phone] Social History Tobacco Use Types Packs/Day Years [...] (Late Contact Info) Description 05/10/2024 11:40 AM MONTESSORI TEACHER Office Visit [facility] Medical Group Diabetes and Endocrinology - [address] [phone] Eva Power MD [address] [place] [address] documented as of this encounter Procedures [...] COLOR (U) YELLOW 10/07/2017 1:44 AM CDT [facility] TRANSPARENCY CLEAR 10/07/2017 1:44 AM CDT [facility] SPECIFIC GRAVITY (U) 1.020 1.000 - 1.025 10/07/2017 1:44 AM CDT [facility] U PH 6.0 5.0 - 8.0 10/07/2017 1:44 AM CDT [facility] LEUKOCYTES (U) NEGATIVE NEGATIVE 10/07/2017 1:44 AM CDT [facility] NITRITES NEGATIVE NEGATIVE 10/07/2017 1:44 AM CDT [facility] PROTEIN (U) NEGATIVE NEGATIVE 10/07/2017 1:44 AM CDT [facility] URINE GLUCOSE 3+(A) NEGATIVE 10/07/2017 1:44 AM CDT [facility] KETONES MG/DL (U) NEGATIVE NEGATIVE 10/07/2017 1:44 AM CDT [facility] UROBILINOGEN 0.2 <1.0 EU/DL 10/07/2017 1:44 AM CDT [facility] BILIRUBIN (U) NEGATIVE NEGATIVE 10/07/2017 1:44 AM CDT [facility] BLOOD (U) NEGATIVE NEGATIVE 10/07/2017 1:44 AM CDT [facility] WBC/HPF 0-5 0 - 5 /HPF 10/07/2017 1:44 AM CDT [facility] RBC/HPF 0-5 0 - 5 /HPF 10/07/2017 1:44 AM CDT [facility] EPI/HPF OCCASIONAL /LPF 10/07/2017 1:44 AM CDT [facility] BACTERIA (U) 1+ /HPF 10/07/2017 1:44 AM CDT [facility] MUCUS PRESENT 10/07/2017 1:44 AM CDT [facility] CULTURE & SENSITIVITY INDICATED? NOT INDICATED 10/07/2017 1:46 AM CDT [facility] Comment: CORRECTION CALLED TO NICHOLAS IN ER AT 0145 ON 10/07/17 RBV CORRECTED ON 10/07 AT 0146: PREVIOUSLY REPORTED NONE SEEN OTHER (type in comments) 10/07/2017 1:20 AM CDT 10/07/2017 1:35 AM CDT Comment:URINE SPECIMEN~URINE SPECIMEN us Generic Conversion Md RED URINE ORDERABLES Edited Result - Final Performing Organization Address City/[facility]/ZIP Co de Phone Number [facility] [address] [place] [address], * LIPASE (10/07/2017 12:53 AM CDT) LIPASE 39 8 - 78 UNITS/L 10/07/2017 1:21 AM CDT [facility] SERUM OR PLASMA SPECIMEN / Unknown 10/07/2017 12:53 AM CDT 10/07/2017 12:56 AM CDT us Generic Conversion Md RED LAB[facility] Final R esult Performing Organization Address City/[facility]/ZIP Co de Phone Number [facility] [address] [place] [address], * (ABNORMAL) COMPREHENSIVE METABOLIC PANEL (10/07/2017 12:53 AM CDT) GLUCOSE 363(H) 70 - 99 MG/DL 10/07/2017 1:21 AM CDT [facility] BUN 12 9 - 21 MG/DL 10/07/2017 1:21 AM CDT [facility] CREATININE S/P/B 0.97 0.72 - 1.25 MG/DL 10/07/2017 1:21 AM [facility] SODIUM S/P/B 136 136 - 145 MMOL/L 10/07/2017 1:21 AM [facility] POTASSIUM S/P/B 4.4 3.5 - 5.1 MMOL/L 10/07/2017 1:21 AM [facility] CHLORIDE S/P/B 101 98 - 107 MMOL/L 10/07/2017 1:21 AM [facility] CO2 24.0 22.0 - 29.0 MMOL/L 10/07/2017 1:21 AM [facility] CALCIUM S/P/B 10.0 8.4 - 10.2 MG/DL 10/07/2017 1:21 AM [facility] BILIRUBIN TOTAL S/P/B 1.1 0.2 - 1.2 MG/DL 10/07/2017 1:21 AM [facility] TOTAL PROTEIN S/P/B 7.6 6.0 - 8.3 G/DL 10/07/2017 1:21 AM [facility] ALBUMIN S/P/B 4.1 3.5 - 5.2 G/DL 10/07/2017 1:21 AM [facility] AST 51(H) 5 - 34 U/L 10/07/2017 1:21 AM [facility] ALT 59(H) 0 - 55 U/L 10/07/2017 1:21 AM [facility] ALKALINE PHOSPHATASE S/P/B 89 50 - 136 U/L 10/07/2017 1:21 AM [facility] OSMOLALITY (CALC) 286 275 - 300 MOSM/KG 10/07/2017 1:21 AM [facility] A/G RATIO 1.2 1.0 - 1.6 RATIO 10/07/2017 1:21 AM [facility] BUN CREATININE RATIO 12.4 12 - 20 10/07/2017 1:21 AM [facility] ANION GAP 11.0 7 - 16 MMOL/L 10/07/2017 1:21 AM [facility] EGFR NON-AFR. AMER. >60 >60 ML/MIN/1.7 3 M2 10/07/2017 1:21 AM CDT [facility] EGFR AFR. AMER. >60 >60 ML/MIN/1.7 3 M2 10/07/2017 1:21 AM CDT [facility] 10/07/2017 12:5 3 AM CDT 10/07/2017 12:56 AM CDT us Generic Conversion Md RED LAB[facility]AT[facility] Final R esult [facility] [address] [place] [address], * (ABNORMAL) CBC W/DIFF AUTOMATED (10/07/2017 12:53 AM CDT) WBC 4.5 4.5 - 10.8 x10'3/uL 10/07/2017 1:01 AM CDT [facility] RBC 5.10 4.50 - 6.10 x10'6/uL 10/07/2017 1:01 AM CDT [facility] HGB 14.3 13.0 - 18.0 G/DL 10/07/2017 1:01 AM CDT [facility] HCT 42.2 37.0 - 52.0 % 10/07/2017 1:01 AM CDT [facility] MCV 82.7 78.0 - 100.0 FL 10/07/2017 1:01 AM CDT [facility] MCH 28.0 27.0 - 31.0 PG 10/07/2017 1:01 AM CDT [facility] MCHC 33.9 33.0 - 36.0 G/DL 10/07/2017 1:01 AM CDT [facility] RDW 14.6(H) 11.5 - 14.5 % 10/07/2017 1:01 AM CDT [facility] PLT 90(L) 150 - 350 x10'3/uL 10/07/2017 1:01 AM CDT [facility] MPV 10.8(H) 7.4 - 10.4 FL 10/07/2017 1:01 AM CDT [facility] SEG NEUTROPHILS 70.7 % 8 1:10 AM CDT [facility] LYMPHOCYTES 17.2 % 10/07/2017 1:10 AM CDT [facility] MONOCYTES 8.7 % 10/07/2017 1:10 AM CDT [facility] EOSINOPHILS 2.5 % 10/07/2017 1:10 AM CDT [facility] BASOPHILS 0.7 % 10/07/2017 1:10 AM CDT [facility] IMMATURE GRANS % 0.2 % 10/08/19 18 1:10 AM CDT [facility] NRBC 0.0 % 10/07/2017 1:10 AM CDT [facility] ABS. NEUTROPHILS 3.18 1.60 - 8.30 x10'3/uL 10/07/2017 1:10 AM CDT [facility] ABS. LYMPHOCYTES 0.77(L) 0.80 - 4.70 x10'3/uL 10/07/2017 1:10 AM CDT [facility] ABS. MONOCYTES 0.39 0.00 - 1.50 x10'3/uL 10/07/2017 1:10 AM CDT [facility] ABS. EOSINOPHILS 0.11 0.00 - 0.40 x10'3/uL 10/07/2017 1:10 AM CDT [facility] ABS. BASOPHILS 0.03 0.00 - 0.20 x10'3/uL 10/07/2017 1:10 AM CDT [facility] ABS. IMMATURE GRANULOCYTES 0.01 0.00 - 0.03 x10'3/uL 10/07/2017 1:10 AM CDT [facility] ABS. NUCLEATED RBC'S 0.00 0.00 x10'3/uL 10/07/2017 1:10 AM CDT [facility] PLT MORPH. DECREASED 10/07/2017 1:10 AM CDT [facility] RBC MORPHOLOGY NORMAL 10/07/2017 1:10 AM CDT [facility] OTHER (type in comments) 10/07/2017 12:53 AM CDT 10/07/2017 12:56 AM CDT Comment:WHOLE BLOOD SAMPLE us Generic Conversion Md RED LAB[facility]ATORY Final R esult [facility] [address] [place] [address], documented in this encounter Visit Diagnoses Diagnosis Abdominal pain Abdominal pain, unspecified site documented in this encounter
--- OUTSIDE RECORDS SUMMARY | 2024-05-08 06:53 | XMS_ITS | Encounter Summary ---
Author Organization [facility] Address [address] [place] [address]. [place] [address] [place] [address] Care Team Providers Care Painting And Coating Worker Name Role Phone Unavailable Primary Care Provider Unavailabl e Encounter Details Date Type Department Care Team (Latest Contact Info) Description 09/10/2016 Abstract [facility] Group Eva Power MD [facility] [place], [place] [phone] Social History Tobacco Use Types Packs/Day Years [...] st Contact Info) Description 05/10/2024 11:40 AM NUTRITIONAL SERVICES DIRECTOR Office Visit [facility] Medical Group Diabetes and Endocrinology - [address] [phone] Eva Power MD [facility] [address] [place], [place] [address] documented as of this encounter Visit Diagnoses Not on filedocumented in this encounter
--- OUTSIDE RECORDS SUMMARY | 2024-05-08 06:53 | XMS_ITS | Encounter Summary ---
Author Organization [facility] Address [address] [place] [address]. [place] [address] [place] [address] Care Team Providers Care Dough Scaler And Mixer Name Role Phone Unavailable Primary Care Provider Unavailabl e Encounter Details Date Type Department Care Team (Late Contact Info) Description 11/13/2016 Abstract [facility] [address] [place] [address] [place] [address] Berhane Lui MD [facility] [address] [address] Social History Tobacco Use Types [...] (Late Contact Info) Description 05/10/2024 11:40 AM SALES ARCHITECT Office Visit [facility] Diabetes and Endocrinology - [address] [phone] Eva Power MD [address] [place] [address] [phone] documented as of this encounter Procedures Procedure [...] - 99 MG/DL 11/13/2016 10:[address] [facility] ORDERS INTERFACE Comment:Notify Doctor 11/13/2016 10:1 3 PM CDT 11/13/2016 10:16 PM CDT us Generic Conversion Md RED POCT ORDERABLES - DEVIC E Final Result [facility] ORDERS INTERFACE US * (ABNORMAL) URINALYSIS (11/13/2016 9:22 PM CDT) COLOR (U) YELLOW 11/13/2016 9:41 PM CDT [facility] TRANSPARENCY CLEAR 11/13/2016 9:41 PM CDT [facility] SPECIFIC GRAVITY (U) 1.020 1.000 - 1.025 11/13/2016 9:41 PM CDT [facility] U PH 5.5 5.0 - 8.0 11/13/2016 9:41 PM CDT [facility] LEUKOCYTES (U) NEGATIVE NEGATIVE 11/13/2016 9:41 PM CDT [facility] NITRITES NEGATIVE NEGATIVE 11/13/2016 9:41 PM CDT [facility] PROTEIN (U) NEGATIVE NEGATIVE 11/13/2016 9:41 PM CDT [facility] URINE GLUCOSE 3+(A) NEGATIVE 11/13/2016 9:41 PM CDT [facility] KETONES MG/DL (U) NEGATIVE NEGATIVE 11/13/2016 9:41 PM CDT [facility] UROBILINOGEN 1.0(H) <1.0 EU/DL 11/13/2016 9:41 PM CDT [facility] BILIRUBIN (U) NEGATIVE NEGATIVE 11/13/2016 9:41 PM CDT [facility] BLOOD (U) NEGATIVE NEGATIVE 11/13/2016 9:41 PM CDT [facility] WBC/HPF 0-5 0 - 5 /HPF 11/13/2016 9:41 PM CDT [facility] RBC/HPF 0-5 0 - 5 /HPF 11/13/2016 9:41 PM CDT [facility] EPI/HPF OCCASIONAL /LPF 11/13/2016 9:41 PM CDT [facility] BACTERIA (U) TRACE /HPF 11/13/2016 9:41 PM CDT [facility] 11/13/2016 9:22 PM CDT 11/13/2016 9:31 PM CDT us Generic Conversion Md RED URINE ORDERABLES Final Result [facility] [place] [address], * (ABNORMAL) POCT glucose (11/13/2016 9:13 PM CDT) [facility] GLUCOSE POC 319(H) 70 - 99 MG/DL 11/13/2016 9:[address] [facility] ORDERS INTERFACE Comment:Notify Doctor 11/13/2016 9:13 PM CDT 11/13/2016 9:20 PM CDT us Generic Conversion Md RED POCT ORDERABLES - DEVIC E Final Result [facility] ORDERS INTERFACE US * (ABNORMAL) COMPREHENSIVE METABOLIC PANEL (11/13/2016 9:04 PM CDT) GLUCOSE 379(H) 70 - 99 MG/DL 11/13/2016 9:30 PM CDT [facility] BUN 11 9 - 21 MG/DL 11/13/2016 9:30 PM CDT [facility] CREATININE S/P/B 1.10 0.72 - 1.25 MG/DL 11/13/2016 9:30 PM CDT [facility] SODIUM S/P/B 141 136 - 145 MMOL/L 11/13/2016 9:30 PM CDT [facility] POTASSIUM S/P/B 3.9 3.5 - 5.1 MMOL/L 11/13/2016 9:30 PM CDT [facility] CHLORIDE S/P/B 108(H) 98 - 107 MMOL/L 11/13/2016 9:30 PM CDT [facility] CO2 24.0 22.0 - 29.0 MMOL/L 11/13/2016 9:30 PM CDT [facility] CALCIUM S/P/B 8.5 8.4 - 10.2 MG/DL 11/13/2016 9:30 PM CDT [facility] BILIRUBIN TOTAL S/P/B 1.3(H) 0.2 - 1.2 MG/DL 11/13/2016 9:30 PM CDT [facility] TOTAL PROTEIN S/P/B 6.4 6.0 - 8.3 G/DL 11/13/2016 9:30 PM T [facility] ALBUMIN S/P/B 3.4(L) 3.5 - 5.2 G/DL 11/13/2016 9:30 PM CDT [facility] AST 43(H) 5 - 34 U/L 11/13/2016 9:30 PM CDT [facility] ALT 54 0 - 55 U/L 11/13/2016 9:30 PM CDT [facility] ALKALINE PHOSPHATASE S/P/B 87 50 - 136 U/L 11/13/2016 9:30 PM CDT [facility] OSMOLALITY (CALC) 296 275 - 300 MOSM/KG 11/13/2016 9:30 PM CDT [facility] A/G RATIO 1.1 1.0 - 1.6 RATIO 11/13/2016 9:30 PM CDT [facility] BUN CREATININE RATIO 10.0(L) 12 - 20 11/13/2016 9:30 PM CDT [facility] ANION GAP 9.0 7 - 16 MMOL/L 11/13/2016 9:30 PM CDT [facility] EGFR NON-AFR. AMER. >60 >60 ML/MIN/1.7 3 M2 11/13/2016 9:30 PM CDT [facility] EGFR AFR. AMER. >60 >60 ML/MIN/1.7 3 M2 11/13/2016 9:30 PM CDT [facility] 11/13/2016 9:04 PM CDT 11/13/2016 9:09 PM CDT us Generic Conversion Md RED LABORATORY Final R esult [facility] [address] [place] [id number], * (ABNORMAL) CBC W/DIFF AUTOMATED (11/13/2016 9:04 PM CDT) WBC 3.6(L) 4.5 - 10.8 x10'3/uL 11/13/2016 9:21 PM CDT [facility] RBC 4.28(L) 4.50 - 6.10 x10'6/uL 11/13/2016 9:21 PM CDT [facility] HGB 12.6(L) 13.0 - 18.0 G/DL 11/13/2016 9:21 PM CDT [facility] HCT 35.5(L) 37.0 - 52.0 % 11/13/2016 9:21 PM CDT [facility] MCV 82.9 78.0 - 100.0 FL 11/13/2016 9:21 PM CDT [facility] MCH 29.4 27.0 - 31.0 PG 11/13/2016 9:21 PM CDT [facility] MCHC 35.5 33.0 - 36.0 G/DL 11/13/2016 9:21 PM CDT [facility] RDW 15.2(H) 11.5 - 14.5 % 11/13/2016 9:21 PM CDT [facility] PLT 84(L) 150 - 350 x10'3/uL 11/13/2016 9:21 PM CDT [facility] MPV 10.6(H) 7.4 - 10.4 FL 11/13/2016 9:21 PM CDT [facility] SEG NEUTROPHILS 64.1 % 7 9:35 PM CDT [facility] LYMPHOCYTES 23.1 % 11/13/2016 9:35 PM CDT [facility] MONOCYTES 9.5 % 11/13/2016 9:35 PM CDT [facility] EOSINOPHILS 2.2 % 11/13/2016 9:35 PM CDT [facility] BASOPHILS 0.8 % 11/13/2016 9:35 PM CDT [facility] IMMATURE GRANS % 0.3 % 11/14/19 17 9:35 PM CDT [facility] NRBC 0.0 % 11/13/2016 9:35 PM CDT [facility] ABS. NEUTROPHILS 2.31 1.60 - 8.30 x10'3/uL 11/13/2016 9:35 PM CDT [facility] ABS. LYMPHOCYTES 0.83 0.80 - 4.70 x10'3/uL 11/13/2016 9:35 PM CDT [facility] ABS. MONOCYTES 0.34 0.00 - 1.50 x10'3/uL 11/13/2016 9:35 PM CDT [facility] ABS. EOSINOPHILS 0.08 0.00 - 0.40 x10'3/uL 11/13/2016 9:35 PM CDT [facility] ABS. BASOPHILS 0.03 0.00 - 0.20 x10'3/uL 11/13/2016 9:35 PM CDT [facility] ABS. IMMATURE GRANULOCYTES 0.01 0.00 - 0.03 x10'3/uL 11/13/2016 9:35 PM CDT [facility] ABS. NUCLEATED RBC'S 0.00 0.00 x10'3/uL 11/13/2016 9:35 PM CDT [facility] PLT MORPH. NORMAL 11/13/2016 9:35 PM CDT [facility] RBC MORPHOLOGY NORMAL 11/13/2016 9:35 PM CDT [facility] OTHER (type in comments) 11/13/2016 9:04 PM CDT 11/13/2016 9:09 PM CDT Comment:WHOLE BLOOD SAMPLE us Generic Conversion Md RED LABORATORY Final R esult Performing Organization Address [facility] Co de Phone Number [facility] [address] [place] [address], * BETA-HYDROXYBUTYRATE (11/13/2016 9:04 PM CDT) BETA-HYDROXYBUT YRATE 0.1 0.0 - 0.3 MMOL/L 11/13/2016 9:17 PM CDT [facility] SERUM OR PLASMA SPECIMEN / Unknown 11/13/2016 9:04 PM CDT 11/13/2016 9:09 PM CDT us Generic Conversion Md RED LABORATORY Final R esult Performing Organization Address City/[facility]/ZIP Co de Phone Number [facility] [address] [place] [address], documented in this encounter Visit Diagnoses Diagnosis Type 2 diabetes mellitus with hyperglycemia (CMS/HCC HHS/HCC) Type II or unspecified type diabetes mellitus without mention of complication, not stated as uncontrolled documented in this encounter
--- OUTSIDE RECORDS SUMMARY | 2024-05-08 06:53 | XMS_ITS | Encounter Summary ---
Author Organization [facility] Address [address] [place] [address]. [place] [address] [place] [address] Care Team Providers Care Scrum Coach Name Role Phone Unavailable Primary Care Provider Unavailabl e Encounter Details Date Type Department Care Team (Latest Contact Info) Description 08/20/2016 Abstract [facility] Social History Tobacco Use [...] st Contact Info) Description 05/10/2024 11:40 AM REFRIGERATION PLANT OPERATOR Office Visit [facility] Diabetes and Endocrinology - [address] [phone] Eva Power MD [address] [place] [phone] documented as of this encounter Visit Diagnoses Not on filedocumented in this encounter
--- OUTSIDE RECORDS SUMMARY | 2024-05-08 06:53 | XMS_ITS | Encounter Summary ---
Author Organization [facility] Address [address] [place] [address]. [place] [address] [place] [address] Care Team Providers Care Component Engineer Name Role Phone Unavailable Primary Care Provider Unavailabl e Encounter Details Date Type Department Care Team (Latest Contact Info) Description 01/01/2015 Abstract [facility] Ole Jones MD Social [...] Contact Info) Description 05/10/2024 11:40 AM MANAGER OF SUPPLY CHAIN Office Visit [facility] Diabetes and Endocrinology - [address] [phone] Eva Power MD [address] [place] [address] [phone] documented as of this encounter Visit Diagnoses Not on filedocumented in this encounter
--- OUTSIDE RECORDS SUMMARY | 2024-05-08 06:53 | XMS_ITS | Encounter Summary ---
Author Organization [facility] Address [address] [place] [address]. [place] [address] [place] [address] Care Team Providers Care Development Team Lead Name Role Phone Unavailable Primary Care Provider Unavailabl e Encounter Details Date Type Department Care Team (Late st Contact Info) Description 10/31/2015 Abstract [facility] [address] [address] Sean Morfin MD [address] [place] [phone] Social History Tobacco Use Types Packs/Day Years [...] st Contact Info) Description 05/10/2024 11:40 AM GUIDE ESCORT Office Visit [facility] Diabetes and Endocrinology - [address] [phone] Eva Power MD [address] [place] [phone] documented as of this encounter Visit Diagnoses Diagnosis Anemia Anemia, unspecified documented in this encounter
--- OUTSIDE RECORDS SUMMARY | 2024-05-08 06:53 | XMS_ITS | Encounter Summary ---
Author Organization [facility] Address [address] [place] [address]. [place], [place] [address] [place] [address] Care Team Providers Care Racker Octave Board Name Role Phone Unavailable Primary Care Provider Unavailabl e Encounter Details Date Type Department Care Team (Latest Contact Info) Description 09/08/2016 Abstract [facility] Social History Tobacco Use [...] Date: 09/08/2016 09:34 AM, Created By: Chantelle Espinzoa Task Name: Call Back Assigned To: [facility] Nurse Team Regarding Patient: Camilo Curry, [...] Chantelle Espinoza, ; Sep 08 2016 4:15PM SHIP STEWARD (Author) documented in this encounter Plan of Treatment Upcoming Encounters Date Type Department Care Team (Late st Contact Info) Description 05/10/2024 11:40 AM SHIP STEWARD Office Visit [facility] Diabetes and Endocrinology - [address] [phone] Eva Power MD [address] [place] [phone] documented as of this encounter Visit Diagnoses Not on filedocumented in this encounter
--- OUTSIDE RECORDS SUMMARY | 2024-05-08 06:53 | XMS_ITS | Encounter Summary ---
Author Organization [facility] Address [address] [place] [address]. [place] [address] [place] [address] Care Team Providers Care Cmo & President Name Role Phone Unavailable Primary Care Provider Unavailabl e Encounter Details Date Type Department Care Team (Latest Contact Info) Description 09/10/2016 Abstract [facility] Social History Tobacco Use [...] Contact Info) Description 05/10/2024 11:40 AM LENS GRINDER ROUGH Office Visit [facility] Diabetes and Endocrinology - [address] [phone] Eva Power MD [address] [place] [address] [phone] documented as of this encounter Visit Diagnoses Not on filedocumented in this encounter
--- OUTSIDE RECORDS SUMMARY | 2024-05-08 06:53 | XMS_ITS | Encounter Summary ---
Author Organization [facility] Address [address] [place] [address]. [place] [address] [place] [address] Care Team Providers Care Professional Bondsman Name Role Phone Unavailable Primary Care Provider Unavailabl e Encounter Details Date Type Department Care Team (Late st Contact Info) Description 02/28/[address] [facility] [address] [facility] [place] [address] Arian Swartz MD [address] [place] [phone] Social History Tobacco Use Types Packs/Day Years [...] st Contact Info) Description 05/10/2024 11:40 AM ELEVATOR RUNNER Office Visit [facility] Diabetes and Endocrinology - [place] [address] [place] [phone] Eva Power MD [facility] [place], [place] [address] documented as of this encounter Visit Diagnoses Not on filedocumented in this encounter
--- OUTSIDE RECORDS SUMMARY | 2024-05-08 06:53 | XMS_ITS | Encounter Summary ---
Author Organization [facility] Address [address] [place] [address]. [place], [place] [address] [place] [address] Care Team Providers Care Cutter First Name Role Phone Unavailable Primary Care Provider Unavailabl e Encounter Details Date Type Department Care Team (Latest Contact Info) Description 10/15/2016 Abstract [facility] Social History Tobacco Use Types [...] Power Task Name: Call Back Assigned To: [facility] Nurse Team Regarding Patient: Camilo [place], Status: [...] Ying Mujica L.P.N.; Oct 15 2016 1:56PM LABEL TACKER (Author) documented in this encounter Plan of Treatment Upcoming Encounters Date Type Department Care Team (Late st Contact Info) Description 05/10/2024 11:40 AM LABEL TACKER Office Visit [facility] Diabetes and Endocrinology - [address] [phone] Eva Power MD [address] [place] [phone] documented as of this encounter Visit Diagnoses Not on filedocumented in this encounter
--- OUTSIDE RECORDS SUMMARY | 2024-05-08 06:53 | XMS_ITS | Encounter Summary ---
Author Organization [facility] Address [address] [place] [address]. [place] [address] [place] [address] Care Team Providers Care Orthodontic Assistant Name Role Phone Unavailable Primary Care Provider Unavailabl e Encounter Details Date Type Department Care Team (Late Contact Info) Description 04/07/2016 Abstract [facility] [address] [place] [address] Sean Morfin MD [address] [place] [phone] Social History Tobacco Use Types Packs/Day Years [...] (Late Contact Info) Description 05/10/2024 11:40 AM ONCOLOGY NURSE NAVIGATOR Office Visit [facility] Diabetes and Endocrinology - [address] [phone] Eva Power MD [address] [place] [address] [phone] documented as of this encounter Visit Diagnoses Diagnosis Osteoarthritis Osteoarthrosis, unspecified whether generalized or localized, unspecified site documented in this encounter
--- OUTSIDE RECORDS SUMMARY | 2024-05-08 06:53 | XMS_ITS | Encounter Summary ---
Author Organization [facility] Address [address] [place] [address]. [place] [address] [place] [address] Care Team Providers Care Equipment Installer Name Role Phone Unavailable Primary Care Provider Unavailabl e Encounter Details Date Type Department Care Team (Latest Contact Info) Description 11/21/2016 Abstract [facility] Social History Tobacco Use [...] st Contact Info) Description 05/10/2024 11:40 AM BASKETBALL PLAYER Office Visit [facility] Diabetes and Endocrinology - [address] [phone] Eva Power MD [address] [place] [phone] documented as of this encounter Visit Diagnoses Not on filedocumented in this encounter
--- OUTSIDE RECORDS SUMMARY | 2024-05-08 06:53 | XMS_ITS | Encounter Summary ---
Author Organization [facility] Address [address] [place] [address]. [place] [address] [place] [address] Care Team Providers Care Pulverizer Tender Name Role Phone Unavailable Primary Care Provider Unavailabl e Encounter Details Date Type Department Care Team (Late Contact Info) Description 04/16/2017 [facility] Emergency Room [address] [place] [address] [place] [address] Lukas Corea MD [address] [place] [address] Social History Tobacco Use Types Packs/Day Years [...] (Late Contact Info) Description 05/10/2024 11:40 AM MANDOLIN REPAIR PERSON Office Visit [facility] Diabetes and Endocrinology - [address] [phone] Eva Power MD [address] [place] [address] [place] [address] documented as of this encounter Procedures Procedure Name Priority Date/Time Associated Diagnosis Comments INFLUENZA A & B STAT 04/16/2017 11:00 AM MANDOLIN REPAIR PERSON documented in this encounter Results * INFLUENZA A & B (04/16/2017 11:00 AM MANDOLIN REPAIR PERSON) SPEC DESCRIPTION NASOPHARYNGEAL SWAB 04/16/2017 11:38 AM MANDOLIN REPAIR PERSON [facility] SPECIAL REQUESTS NO SPECIAL REQUEST 04/16/2017 11:38 AM MANDOLIN REPAIR PERSON [facility] RESULT NEGATIVE 04/16/2017 12:08 PM MANDOLIN REPAIR PERSON [facility] RESULT A NEGATIVE RESULT DOES NOT EXCLUDE INFLUENZA VIRUS INFECTION. ??IF INFLUENZA IS CIRCULATING IN YOUR COMMUNITY, A DIAGNOSIS OF INFLUENZA SHOULD BE CONSIDERED BASED ON A PATIENT'S CLINICAL PRESENTATION AND EMPIRIC ANTIVIRAL TREATMENT SHOULD BE CONSIDERED IF INDICATED. 04/16/2017 12:08 PM MANDOLIN REPAIR PERSON [facility] NASOPHARYNGEAL SWAB / Unknown 04/16/2017 11:00 AM MANDOLIN REPAIR PERSON 04/16/2017 11:48 AM MANDOLIN REPAIR PERSON us Generic Conversion Md RED MICROBIOLOGY - GENERAL ORDERABLES Final Result [facility] [address] [place] [address], documented in this encounter Visit Diagnoses Diagnosis Acute bronchitis documented in this encounter
--- OUTSIDE RECORDS SUMMARY | 2024-05-08 06:53 | XMS_ITS | Encounter Summary ---
Author Organization [facility] Address [address] [place] [address]. [place] [address] [place] [address] Care Team Providers Care Oil Burner Servicer And Installer Name Role Phone Unavailable Primary Care Provider Unavailabl e Encounter Details Date Type Department Care Team (Latest Contact Info) Description 11/13/2016 Abstract [facility] Eva Power MD [address] [place] [address] Social History Tobacco Use Types [...] by:Eva Power M.D. Dec 09 2016 10:11PM RELIEF MAP MODELER Author documented in this encounter Plan of Treatment Upcoming Encounters Date Type Department Care Team (Late st Contact Info) Description 05/10/2024 11:40 AM RELIEF MAP MODELER Office Visit [facility] Group Diabetes and Endocrinology - [address] [phone] Eva Power MD [address] [place], [place] [phone] documented as of this encounter Visit Diagnoses Not on filedocumented in this encounter
--- OUTSIDE RECORDS SUMMARY | 2024-05-08 06:53 | XMS_ITS | Encounter Summary ---
Author Organization [facility] Address [address] [place] [address]. [place] [address] [place] [address] Care Team Providers Care Turf Grower Name Role Phone Unavailable Primary Care Provider Unavailabl e Encounter Details Date Type Department Care Team (Latest Contact Info) Description 11/17/2016 Abstract [facility] Social [...] st Contact Info) Description 05/10/2024 11:40 AM HYDRAULIC OIL TOOL OPERATOR Office Visit [facility] Diabetes and Endocrinology - [address] [phone] Eva Power MD [address] [place] [phone] documented as of this encounter Visit Diagnoses Not on filedocumented in this encounter
--- OUTSIDE RECORDS SUMMARY | 2024-05-08 06:53 | XMS_ITS | Encounter Summary ---
Author Organization [facility] Address [address] [place] [address]. [place] [address] [place] [address] Care Team Providers Care Licensed Pesticide Applicator Name Role Phone Unavailable Primary Care Provider Unavailabl e Encounter Details Date Type Department Care Team (Latest Contact Info) Description 12/09/2016 Abstract [facility] Social History [...] 05/10/2024 11:40 AM FELLER HAND Office Visit [facility] Diabetes and Endocrinology - [address] [phone] Eva Power MD [address] [place] [phone] documented as of this encounter Visit Diagnoses Not on filedocumented in this encounter
--- OUTSIDE RECORDS SUMMARY | 2024-05-08 06:53 | XMS_ITS | Encounter Summary ---
Author Organization [facility] Address [facility]. [place], [place] [address] [place] [address] Care Team Providers Care X Ray Operator Name Role Phone Unavailable Primary Care Provider Unavailabl e Encounter Details Date Type Department Care Team (Latest Contact Info) Description 10/16/2016 Abstract [facility] Social History Tobacco Use [...] Guzman Task Name: Renew Medication [email or web address] Nurse Team Regarding Patient: PatricioDavidshantelle Gilliam, Status: Active Comment: Ying Guzman - 16 Oct 2016 2:35 PM TASK CREATED Called on Thursday or Thursday. Waiting on override for persciption. Please call Subhash from [employer] at [phone]. Nimco Monroe - 16 Oct 2016 4:59 [...] Nimco Monroe, ; Oct 16 2016 5:00PM DRILLING CONTRACTOR (Author) documented in this encounter Plan of Treatment Upcoming Encounters Date Type Department Care Team (Late st Contact Info) Description 05/10/2024 11:40 AM DRILLING CONTRACTOR Office Visit [facility] Group Diabetes and Endocrinology - [address] [phone] Eva Power MD [address] [place] [phone] documented as of this encounter Visit Diagnoses Not on filedocumented in this encounter
--- OUTSIDE RECORDS SUMMARY | 2024-05-08 06:53 | XMS_ITS | Encounter Summary ---
Author Organization [facility] Address [address] [place] [address]. [place] [address] [place] [address] Care Team Providers Care Pricing Strategist Name Role Phone Unavailable Primary Care Provider Unavailabl e Encounter Details Date Type Department Care Team (Late st Contact Info) Description 08/28/2015 [facility] [address] [facility] [place] [address] Social History Tobacco Use Types Packs/Day Years [...] st Contact Info) Description 05/10/2024 11:40 AM FAMILY SERVICE AIDE Office Visit [facility] Medical Group Diabetes and Endocrinology - [address] [phone] Eva Power MD [address] [place], [place] [address] [address] documented as of this encounter Visit Diagnoses Diagnosis Adverse effect of other opioids, initial encounter documented in this encounter
--- OUTSIDE RECORDS SUMMARY | 2024-05-08 06:53 | XMS_ITS | Encounter Summary ---
Author Organization [facility] Address [address] [place] [address]. [place] [address] [place] [address] Care Team Providers Care Social Director Name Role Phone Unavailable Primary Care Provider Unavailabl e Encounter Details Date Type Department Care Team (Late st Contact Info) Description 12/09/2016 Abstract [facility] Medical [facility] Diabetes and Endocrinology - [address] [phone] Eva Power MD [address] [place] [address] [phone] Social History Tobacco Use Types Packs/Day Years [...] therapy; KATLYN = N; Verified Transmission to [facility]; Last Updated By: eMka Phillips; 12/09/2016 12:11:18 PM 4. Hydrocodone-Acetaminophen 10-325 [...] HCl - 500 MG Oral Tablet; Therapy: (Recorded:19Mep9500) to Recorded Dispense: 0 Days ; #: Sufficient TABS; Refill: 0; KATLYN = N; Record; Last Updated By: Judy Ledesma;01/03/2015 11:58:23 PM 7. Omeprazole 20 MG Oral Capsule Delayed Release; TAKE 1 CAPSULE DAILY EVERY MORNING BEFORE BREAKFAST; Therapy: [id number] to Recorded Rx By: Eva Power; Dispense: 0 Days ; #: Sufficient Capsule Delayed Release; Refill: 0; KATLYN = N;Record 8. TipHiveuch Ultra Blue In Vitro Strip; TESTING 6 TIMES DAILY; Therapy: 45Isv6568 to (Evaluate:61Paf4698) Requested for: 97Tqs2722; Last Rx:[id number] Ordered Rx By: Eva Power; Dispense: 0 Days ; #:2 X 100 Strip Box; Refill: 11; For: Uncontrolled type 2 diabetes mellitus with insulin therapy; KATLYN = N; Verified Transmission to [facility]; Last Updated By: [facility]; 12/09/2016 12:11:17 PM 9. GILUPI Mini w/Device Kit; USE DIRECTED; Therapy: 51Nbx5703 to (Last Rx:[id number]) Requested for: 54Yqo4333 Ordered Rx By: Eva Power; Dispense: 0 Days ; #:1 Kit; Refill: 0; For: Uncontrolled type 2 diabetes mellitus with insulin therapy; KATLYN = N; Verified Transmission to [facility]; Last Updated By: [facility]; 12/09/2016 12:11:19 PM 10. Xanax TABS; Therapy: (Recorded:05Npk9655) to Recorded Dispense: 0 Days ; #: Sufficient TABS; Refill: 0; KATLYN = N; Record; Last Updated By: Judy Ledesma;01/03/2015 11:58:23 PM 11. Xifaxan 550 MG Oral Tablet; Therapy: 72Red1008 to Recorded Rx By: Eva Power; Dispense: [...] PM Results/Data *Glucose, Whole Blood In Office 21Snt3531 11:47AM Eva Power Test Name Result Flag Reference Glucose Finger Stick 242 mg/dl 70 - 110 mg/dl *A1C In Office 67Mqs4623 11:46AM Eva Power Test Name Result Flag [...] alcohol. 24 Hour Food Recall Breakfast- eggs, zneg, cheese and a biscuit, toast with sausage [...] AND DCE group and Planning Healthy Mealsfrom [employer]. Reviewed CHO containing foods, serving sizes, and [...] increase physical activity by [address] Pilot Monitoring Evaluation: Food and Blood Glucose Monitoring [...] Ganesh Collins RD; Dec 10 2016 11:54AM EXPORT COORDINATOR (Author) documented in this encounter Plan of Treatment Upcoming Encounters Date Type Department Care Team (Late st Contact Info) Description 05/10/2024 11:40 AM EXPORT COORDINATOR Office Visit [facility] Medical Group Diabetes and Endocrinology - [address] [phone] Eva Power MD [address] [place] [address] [phone] documented as of this encounter Visit Diagnoses Not on filedocumented in this encounter
--- OUTSIDE RECORDS SUMMARY | 2024-05-08 06:53 | XMS_ITS | Encounter Summary ---
Author Organization [facility] Address [address] [place] [address]. [place] [address] [place] [address] Care Team Providers Care It Associate Name Role Phone Unavailable Primary Care Provider Unavailabl e Encounter Details Date Type Department Care Team (Latest Contact Info) Description 09/14/2016 Abstract [facility] Social History Tobacco [...] st Contact Info) Description 05/10/2024 11:40 AM BASTING CLEANER Office Visit [facility] Medical Group Diabetes and Endocrinology - [address] [phone] Eva Power MD [address] [place] [phone] documented as of this encounter Visit Diagnoses Not on filedocumented in this encounter
--- OUTSIDE RECORDS SUMMARY | 2024-05-08 06:53 | XMS_ITS | Encounter Summary ---
Author Organization [facility] Address [address] [place] [address]. [place], [place] [address] [place] [address] Care Team Providers Care Ordering Box Operator Name Role Phone Unavailable Primary Care Provider Unavailabl e Encounter Details Date Type Department Care Team (Latest Contact Info) Description 12/28/2014 Abstract [facility] Ole Jones MD Social History [...] of back pain. He was evaluated in [place] with the MRI and did a lumbar [...] but I don't have any report from [place]. No headache no progress made. He is [...] Extended Release 24 Hour (Amphetamine-Dextroamphet ER); Therapy: (Recorded:38Uru3005) to Recorded 2. Divalproex Sodium 500 MG Oral Tablet Delayed Release; Therapy: 03Lhi8777 to Recorded 3. Hydrocodone-Acetaminophen 10-325 MG Oral Tablet; Therapy: (Recorded:09Fex8111) to Recorded 4. MetFORMIN HCl - 500 MG Oral Tablet; Therapy: (Recorded:91Qew0309) to Recorded 5. Xanax TABS (ALPRAZolam); Therapy: (Recorded:16Sqy3866) to Recorded Allergies 1. azithromycin 2. esomeprazole 3. nisoldipine 4. Penicillins 5. sulfa Vitals Recorded: 03Qng1284 04:05PM Systolic 129 Diastolic 85 Height 5 [...] 1. MRI Lumbar Spine WO; Status:Active; Requested for:28Hpz0925; Perform:Other Radiology; Due:72Aeb1164; Last Updated By:Judy Ledesma; 12/28/2014 3:48:17 PM;Ordered; [...] Sean Jones M.D.; Jan 04 2015 11:45AM WATER VALVE REPAIRER (Author) documented in this encounter Plan of Treatment Upcoming Encounters Date Type Department Care Team (Late st Contact Info) Description 05/10/2024 11:40 AM WATER VALVE REPAIRER Office Visit [facility] Diabetes and Endocrinology - [address] [phone] Eva Power MD [address] [place] [address] documented as of this encounter Visit Diagnoses Not on filedocumented in this encounter
--- OUTSIDE RECORDS SUMMARY | 2024-05-08 06:53 | XMS_ITS | Encounter Summary ---
Author Organization [facility] Address [address] [place] [address]. [place] [address] [place] [address] Care Team Providers Care Tap Dancer Name Role Phone Unavailable Primary Care Provider Unavailabl e Encounter Details Date Type Department Care Team (Late Contact Info) Description 10/02/[address] [facility] [address] [facility] [place] [address] Jorge Solis, DO [address] [place] [address] Social History Tobacco Use Types Packs/Day Years [...] (Late Contact Info) Description 05/10/2024 11:40 AM PIPE FITTER FIRE SPRINKLER SYSTEMS Office Visit [facility] Medical Group Diabetes and Endocrinology - [address] [phone] Eva Power MD [address] [place] [phone] documented as of this encounter Visit Diagnoses Diagnosis Acute bronchitis documented in this encounter
--- OUTSIDE RECORDS SUMMARY | 2024-05-08 06:53 | XMS_ITS | Encounter Summary ---
Author Organization [facility] Address [address] [place] [address]. [place] [address] [place] [address] Care Team Providers Care Neon Electrician Name Role Phone Unavailable Primary Care Provider Unavailabl e Encounter Details Date Type Department Care Team (Late st Contact Info) Description 08/01/2015 Abstract [facility] [address] [facility] [place] [address] Gerry Faustin MD [address] [place] [address] Social History Tobacco Use Types Packs/Day [...] (Late Contact Info) Description 05/10/2024 11:40 AM CHECK AND TRANSFER BEADER Office Visit [facility] Diabetes and Endocrinology - [address] [phone] Eva Power MD [address] [place] [phone] documented as of this encounter Visit Diagnoses Diagnosis Hemoptysis Hemoptysis, unspecified documented in this encounter
--- OUTSIDE RECORDS SUMMARY | 2024-05-08 06:53 | XMS_ITS | Encounter Summary ---
Author Organization [facility] Address [address] [place] [address]. [place] [address] [place] [address] Care Team Providers Care Furnace Repairer Helper Name Role Phone Unavailable Primary Care Provider Unavailabl e Encounter Details Date Type Department Care Team (Latest Contact Info) Description 09/09/2016 Abstract [facility] Medical [facility] Social History Tobacco [...] st Contact Info) Description 05/10/2024 11:40 AM DRAWING KILN OPERATOR Office Visit [facility] Diabetes and Endocrinology - [address] [phone] Eva Power MD [address] [place] [phone] documented as of this encounter Visit Diagnoses Not on filedocumented in this encounter
--- OUTSIDE RECORDS SUMMARY | 2024-05-08 06:53 | XMS_ITS | Encounter Summary ---
Author Organization [facility] Address [address] [place] [address]. [place] [address] [place] [address] Care Team Providers Care Ice Cream Freezer Name Role Phone Unavailable Primary Care Provider Unavailabl e Encounter Details Date Type Department Care Team (Latest Contact Info) Description 11/03/[address] [facility] Social History Tobacco Use Types [...] st Contact Info) Description 05/10/2024 11:40 AM ARC WELDING MACHINE OPERATOR Office Visit [facility] Diabetes and Endocrinology - [address] [phone] Eva Power MD [address] [place] [address] [phone] documented as of this encounter Visit Diagnoses Not on filedocumented in this encounter
--- OUTSIDE RECORDS SUMMARY | 2024-05-08 06:53 | XMS_ITS | Encounter Summary ---
Author Organization [facility] Address [address] [place] [address]. [place] [address] [place] [address] Care Team Providers Care Fruit Buying Grader Name Role Phone Unavailable Primary Care Provider Unavailabl e Encounter Details Date Type Department Care Team (Late st Contact Info) Description 12/29/2015 [facility] Emergency Room [address] [place] [address] Social History Tobacco Use Types Packs/Day Years [...] st Contact Info) Description 05/10/2024 11:40 AM PHOTOGRAPHIC LABORATORY SUPERVISOR Office Visit [facility] Medical Group Diabetes and Endocrinology - [address] [phone] Eva Power MD [address] [place], [place] [address] [address] documented as of this encounter Visit Diagnoses Diagnosis Secondary esophageal varices with bleeding (CMS/HCC HHS/HCC) Esophageal varices with bleeding in diseases classified elsewhere documented in this encounter
--- OUTSIDE RECORDS SUMMARY | 2024-05-08 06:53 | XMS_ITS | Encounter Summary ---
Author Organization [facility] Address [address] [place] [address]. [place] [address] [place] [address] Care Team Providers Care Real Estate Sales Associate Name Role Phone Unavailable Primary Care Provider Unavailabl e Encounter Details Date Type Department Care Team (Late Contact Info) Description 11/29/2015 Abstract [facility] [place] [address] Sean Morfin MD [address] [place] [phone] Social History Tobacco Use Types Packs/Day Years [...] (Late Contact Info) Description 05/10/2024 11:40 AM FARM CREW MEMBER Office Visit [facility] Medical Group Diabetes and Endocrinology - [address] [phone] Eva Power MD [address] [place] [address] [place], [place] [phone] documented as of this encounter Visit Diagnoses Diagnosis Syncope and collapse documented in this encounter
--- OUTSIDE RECORDS SUMMARY | 2024-05-08 06:53 | XMS_ITS | Encounter Summary ---
Author Organization [facility] Address [address] [place] [address]. [place] [address] [place] [address] Care Team Providers Care Locksmith Name Role Phone Unavailable Primary Care Provider Unavailabl e Encounter Details Date Type Department Care Team (Late st Contact Info) Description 02/02/2014 [facility] [address] [place] [address] , Sarina Dotson MD Social [...] st Contact Info) Description 05/10/2024 11:40 AM TRUST VAULT CLERK Office Visit [facility] Medical Group Diabetes and Endocrinology - [address] [phone] Eva Power MD [address] [place] [address] documented as of this encounter Visit Diagnoses Not on filedocumented in this encounter
--- OUTSIDE RECORDS SUMMARY | 2024-05-08 06:53 | XMS_ITS | Encounter Summary ---
Author Organization [facility] Address [address] [place] [address]. [place] [address] [place] [address] Care Team Providers Care Energy Director Name Role Phone Unavailable Primary Care Provider Unavailabl e Encounter Details Date Type Department Care Team (Late st Contact Info) Description 08/21/2015 [facility] Emergency Room [address] [place] [address] Jalen Wilkerson MD Social History Tobacco Use [...] st Contact Info) Description 05/10/2024 11:40 AM FORENSIC TOXICOLOGIST Office Visit [facility] Medical Group Diabetes and Endocrinology - [address] [phone] Eva Power MD [address] [place], [place] [address] [place] [address] documented as of this encounter Visit Diagnoses Diagnosis Calculus of gallbladder without cholecystitis without obstruction Calculus of gallbladder without mention of cholecystitis or obstruction documented in this encounter
--- OUTSIDE RECORDS SUMMARY | 2024-05-08 06:53 | XMS_ITS | Encounter Summary ---
Author Organization [facility] Address [address] [place] [address]. [place] [address] [place] [address] Care Team Providers Care Beta Tester Name Role Phone Unavailable Primary Care Provider Unavailabl e Encounter Details Date Type Department Care Team (Latest Contact Info) Description 09/30/2017 Abstract [facility] Medical Group Social History Tobacco [...] st Contact Info) Description 05/10/2024 11:40 AM PROCESS DESIGN CHEMICAL ENGINEER Office Visit [facility] Medical Group Diabetes and Endocrinology - [address] [phone] Eva Power MD [address] [place] [phone] documented as of this encounter Visit Diagnoses Not on filedocumented in this encounter
--- OUTSIDE RECORDS SUMMARY | 2024-05-08 06:53 | XMS_ITS | Encounter Summary ---
Author Organization [facility] Address [address] [place] [address]. [place], [place] [address] [place] [address] Care Team Providers Care Baby Counselor Name Role Phone Unavailable Primary Care Provider Unavailabl e Encounter Details Date Type Department Care Team (Latest Contact Info) Description 10/17/2016 Abstract [facility] [...] Task Name: Call Back Assigned To: [facility] Nurse Team Regarding Patient: Camilo Curry, [...] Chantelle Espinoza, ; Oct 30 2016 4:32PM RESOURCE TECHNICIAN (Author) documented in this encounter Plan of Treatment Upcoming Encounters Date Type Department Care Team (Late st Contact Info) Description 05/10/2024 11:40 AM RESOURCE TECHNICIAN Office Visit [facility] Medical Group Diabetes and Endocrinology - [address] [phone] Eva Power MD [address] [place] [phone] documented as of this encounter Visit Diagnoses Not on filedocumented in this encounter
--- OUTSIDE RECORDS SUMMARY | 2024-05-08 06:53 | XMS_ITS | Encounter Summary ---
Author Organization [facility] Address [address] [place] [address]. [place] [address] [place] [address] Care Team Providers Care General Utility Worker Name Role Phone Unavailable Primary Care Provider Unavailabl e Encounter Details Date Type Department Care Team (Late Contact Info) Description 11/02/2016 Abstract [place] [facility] [place] [address] Sameera Villa MD [address] [place] [address] Social History Tobacco Use Types [...] (Late Contact Info) Description 05/10/2024 11:40 AM CLINICAL PHLEBOTOMIST Office Visit [facility] Medical Group Diabetes and Endocrinology - [address] [phone] Eva Power MD [address] [facility] [place], [place] [address] documented as of this encounter Procedures Procedure [...] - 99 MG/DL 11/02/2016 9:29 AM CDT [facility] BUN 11 9 - 21 MG/DL 11/02/2016 9:29 AM CDT [facility] CREATININE S/P/B 0.78 0.72 - 1.25 MG/DL 11/02/2016 9:34 AM CDT [facility] SODIUM S/P/B 141 136 - 145 MMOL/L 11/02/2016 9:29 AM CDT [facility] POTASSIUM S/P/B 3.9 3.5 - 5.1 MMOL/L 11/02/2016 9:29 AM CDT [facility] CHLORIDE S/P/B 109(H) 98 - 107 MMOL/L 11/02/2016 9:29 AM CDT [facility] CO2 26.0 22.0 - 29.0 MMOL/L 11/02/2016 9:29 AM CDT [facility] CALCIUM S/P/B 9.1 8.4 - 10.2 MG/DL 11/02/2016 9:29 AM CDT [facility] BILIRUBIN TOTAL S/P/B 1.2 0.2 - 1.2 MG/DL 11/02/2016 9:29 AM CDT [facility] TOTAL PROTEIN S/P/B 6.1 6.0 - 8.3 G/DL 11/02/2016 9:29 AM CDT [facility] ALBUMIN S/P/B 3.4(L) 3.5 - 5.2 G/DL 11/02/2016 9:29 AM CDT [facility] AST 48(H) 5 - 34 U/L 11/02/2016 9:29 AM CDT [facility] ALT 61(H) 0 - 55 U/L 11/02/2016 9:29 AM CDT [facility] ALKALINE PHOSPHATASE S/P/B 67 50 - 136 U/L 11/02/2016 9:29 AM CDT [facility] OSMOLALITY (CALC) 287 275 - 300 MOSM/KG 11/02/2016 9:29 AM CDT [facility] A/G RATIO 1.3 1.0 - 1.6 RATIO 11/02/2016 9:29 AM T [facility] BUN CREATININE RATIO 14.1 12 - 20 11/02/2016 9:34 AM T [facility] ANION GAP 6.0(L) 7 - 16 MMOL/L 11/02/2016 9:29 AM T [facility] EGFR NON-AFR. AMER. >60 >60 ML/MIN/1.7 3 M2 11/02/2016 9:34 AM T [facility] EGFR AFR. AMER. >60 >60 ML/MIN/1.7 3 M2 11/02/2016 9:34 AM T [facility] 11/02/2016 9:04 AM CDT 11/02/2016 9:07 AM CDT us Generic Conversion Md [facility] LAB[facility]AT[facility] Final R esult [facility] [address] [place] [address], * (ABNORMAL) CBC W/DIFF AUTOMATED (11/02/2016 9:04 AM CDT) WBC 3.7(L) 4.5 - 10.8 x10'3/uL 11/02/2016 9:26 AM CDT [facility] RBC 4.35(L) 4.50 - 6.10 x10'6/uL 11/02/2016 9:26 AM CDT [facility] HGB 12.5(L) 13.0 - 18.0 G/DL 11/02/2016 9:26 AM CDT [facility] HCT 35.9(L) 37.0 - 52.0 % 11/02/2016 9:26 AM CDT [facility] MCV 82.5 78.0 - 100.0 FL 11/02/2016 9:26 AM CDT [facility] MCH 28.7 27.0 - 31.0 PG 11/02/2016 9:26 AM CDT [facility] MCHC 34.8 33.0 - 36.0 G/DL 11/02/2016 9:26 AM CDT [facility] RDW 14.6(H) 11.5 - 14.5 % 11/02/2016 9:26 AM CDT [facility] PLT 78(L) 150 - 350 x10'3/uL 11/02/2016 9:26 AM CDT [facility] MPV 10.6(H) 7.4 - 10.4 FL 11/02/2016 9:26 AM CDT [facility] SEG NEUTROPHILS 63.9 % 7 9:42 AM CDT [facility] LYMPHOCYTES 22.5 % 11/02/2016 9:42 AM CDT [facility] MONOCYTES 9.8 % 11/02/2016 9:42 AM CDT [facility] EOSINOPHILS 3.0 % 11/02/2016 9:42 AM CDT [facility] BASOPHILS 0.5 % 11/02/2016 9:42 AM CDT [facility] IMMATURE GRANS % 0.3 % 11/03/19 17 9:42 AM CDT [facility] NRBC 0.0 % 11/02/2016 9:42 AM CDT [facility] ABS. NEUTROPHILS 2.36 1.60 - 8.30 x10'3/uL 11/02/2016 9:42 AM CDT [facility] ABS. LYMPHOCYTES 0.83 0.80 - 4.70 x10'3/uL 11/02/2016 9:42 AM CDT [facility] ABS. MONOCYTES 0.36 0.00 - 1.50 x10'3/uL 11/02/2016 9:42 AM CDT [facility] ABS. EOSINOPHILS 0.11 0.00 - 0.40 x10'3/uL 11/02/2016 9:42 AM CDT [facility] ABS. BASOPHILS 0.02 0.00 - 0.20 x10'3/uL 11/02/2016 9:42 AM CDT [facility] ABS. IMMATURE GRANULOCYTES 0.01 0.00 - 0.03 x10'3/uL 11/02/2016 9:42 AM CDT [facility] ABS. NUCLEATED RBC'S 0.00 0.00 x10'3/uL 11/02/2016 9:42 AM CDT [facility] PLT MORPH. DECREASED 11/02/2016 9:42 AM CDT [facility] RBC MORPHOLOGY NORMAL 11/02/2016 9:42 AM CDT [facility] OTHER (type in comments) 11/02/2016 9:04 AM CDT 11/02/2016 9:07 AM CDT Comment:WHOLE BLOOD SAMPLE us Generic Conversion Md [facility] Final R esult [facility] [address] [place] [address], * CARDIAC PROFILE (11/02/2016 9:04 AM CDT) CPK 76 30 - 200 U/L 11/02/2016 9:34 AM CDT [facility] CK-MB 1.9 0.0 - 3.4 NG/ML 11/02/2016 9:34 AM CDT [facility] CK INDEX 2.5 % 11/02/2016 9:34 AM CDT [facility] Comment: A CK-MB OF >5 NG/ML AND A CK-MB RELATIVE INDEX OF >4% IS SUGGESTED BEING CONSISTENT WITH ACUTE MYOCARDIAL INFARCTION. TROPONIN I 0.021 0.000 - 0.028 NG/ML 11/02/2016 9:34 AM CDT [facility] Comment: =INDETERMINATE: 0.029-<0.300 NG/ML=PRESUMPTIVE AMI: GREATER THAN OR EQUAL TO 0.300 NG/ML=CONDITIONS RESULTING IN MYOCARDIAL CELL DAMAGE CAN POTENTIALLY INCREASE LEVELS ??ABOVE THE EXPECTED RANGE. SERUM OR PLASMA SPECIMEN / Unknown 11/02/2016 9:04 AM CDT 11/02/2016 9:07 AM CDT us Generic Conversion Md [facility] LAB[facility] Final R jaziel Performing Organization Address City/[facility]/ZIP Co de Phone Number [facility] [address] [place] [address], * PRO-BRAIN NATRIURETIC PEPTIDE (11/02/2016 9:04 AM CDT) B TYPE NATRIURETIC PEPTIDE 39 <100 PG/ML 11/02/2016 9:32 AM CDT [facility] WHOLE BLOOD SPECIMEN / Unknown 11/02/2016 9:04 AM CDT 11/02/2016 9:07 AM CDT us Generic Conversion Md [facility] LAB[facility] William R jaziel Performing Organization Address City/[facility]/ZIP Co de Phone Number [facility] [address] [place] [address], * BETA-HYDROXYBUTYRATE (11/02/2016 9:04 AM CDT) BETA-HYDROXYBUT YRATE 0.1 0.0 - 0.3 MMOL/L 11/02/2016 9:21 AM CDT [facility] SERUM OR PLASMA SPECIMEN / Unknown 11/02/2016 9:04 AM CDT 11/02/2016 9:07 AM CDT us Generic Conversion Md [facility] LAB[facility] Final R esult Performing Organization Address City/[facility]/ZIP Co de Phone Number [facility] [address] [place] [address], [place] [phone] * (ABNORMAL) AMMONIA (11/02/2016 9:04 AM CDT) AMMONIA 127(H) 18 - 72 UMOL/L 11/02/2016 9:22 AM CDT [facility] PLASMA SPECIMEN / Unknown 11/02/2016 9:04 AM CDT 11/02/2016 9:07 AM CDT us Generic Conversion Md [facility] LAB[facility] Final R jaziel Performing Organization Address [facility]/ZIP Co de Phone Number [facility] [address] [place] [address], [place] [phone] documented in this encounter Visit Diagnoses Diagnosis Shortness of breath documented in this encounter
--- OUTSIDE RECORDS SUMMARY | 2024-05-08 06:53 | XMS_ITS | Encounter Summary ---
Author Organization [facility] Address [address] [place] [address]. [place] [address] [place] [address] Care Team Providers Care Video Software Engineer Name Role Phone Unavailable Primary Care Provider Unavailabl e Encounter Details Date Type Department Care Team (Late st Contact Info) Description 11/02/2015 Abstract [place] [facility] [address] [place] [address] Gerry Faustin MD [address] [place] [address] Social History Tobacco Use Types Packs/Day [...] Contact Info) Description 05/10/2024 11:40 AM ELECTRICIAN SUPERVISOR Office Visit [facility] Diabetes and Endocrinology - [address] [phone] Eva Power MD [address] [place] [phone] documented as of this encounter Visit Diagnoses Diagnosis Gastrointestinal hemorrhage Hemorrhage of gastrointestinal tract, unspecified documented in this encounter
--- OUTSIDE RECORDS SUMMARY | 2024-05-08 06:53 | XMS_ITS | Encounter Summary ---
Author Organization [facility] Address [address] [place] [address]. [place] [address] [place] [address] Care Team Providers Care Sr. Payroll Processor Name Role Phone Unavailable Primary Care Provider Unavailabl e Encounter Details Date Type Department Care Team (Latest Contact Info) Description 11/15/2014 Abstract [facility] Social History Tobacco Use Types [...] Contact Info) Description 05/10/2024 11:40 AM NETWORK INTELLIGENCE ANALYST Office Visit [facility] Diabetes and Endocrinology - [address] [phone] Eva Pwoer MD [address] [place] [phone] documented as of this encounter Visit Diagnoses Not on filedocumented in this encounter
--- OUTSIDE RECORDS SUMMARY | 2024-05-08 06:53 | XMS_ITS | Encounter Summary ---
Author Organization [facility] Address [address] [place] [address]. [place] [address] [place] [address] Care Team Providers Care Pcat Instructor Name Role Phone Unavailable Primary Care Provider Unavailabl e Encounter Details Date Type Department Care Team (Late Contact Info) Description 02/07/2017 Abstract [place] [facility] [address] [facility] [place] [address] Sameera Villa MD [address] [place] [address] Social History Tobacco Use Types [...] (Late Contact Info) Description 05/10/2024 11:40 AM ACTIVE DIRECTORY SYSTEMS ADMINISTRATOR Office Visit [facility] Diabetes and Endocrinology - [address] [phone] Eva Power MD [address] [facility] [place] [place] [address] documented as of this encounter Procedures Procedure Name Priority Date/Time Associated Diagnosis Comments STREP A, DNA Routine 02/07/2017 6:55 AM CDT RAPID STREP A STAT 02/07/2017 6:55 AM CDT documented in this encounter Results * STREP A, DNA (02/07/2017 6:55 AM CDT) SPEC DESCRIPTION THROAT 02/07/2017 7:12 AM CDT [facility] SPECIAL REQUESTS NO SPECIAL REQUEST 02/07/2017 7:12 AM CDT [facility] RESULT NEGATIVE 02/07/2017 8:09 AM CDT [facility] THROAT SWAB / Unknown 02/07/2017 6:55 AM CDT 02/07/2017 7:12 AM CDT us Generic Conversion Md RED MICROBIOLOGY - GENERAL ORDERABLES Final Result Performing Organization Address [facility] Co de Phone Number [place] [phone] [place] [address], * RAPID STREP A (02/07/2017 6:55 AM CDT) SPEC DESCRIPTION THROAT 02/07/2017 7:03 AM CDT [facility] SPECIAL REQUESTS NO SPECIAL REQUEST 02/07/2017 7:03 AM CDT [facility] RAPID STREP TEST NEGATIVE 02/07/2017 7:12 AM CDT [facility] THROAT SWAB / Unknown 02/07/2017 6:55 AM CDT 02/07/2017 7:08 AM CDT us Generic Conversion Md RED MICROBIOLOGY - GENERAL ORDERABLES Final Result Performing Organization Address City/[facility]/ZIP Co de Phone Number [facility] [address] [place] [address], documented in this encounter Visit Diagnoses Diagnosis Acute pharyngitis documented in this encounter
--- OUTSIDE RECORDS SUMMARY | 2024-05-08 06:53 | XMS_ITS | Encounter Summary ---
Author Organization [facility] Address [address] [place] [address]. [place] [address] [place] [address] Care Team Providers Care Wire Stockkeeper Name Role Phone Unavailable Primary Care Provider Unavailabl e Encounter Details Date Type Department Care Team (Late st Contact Info) Description 12/09/2016 Abstract [facility] Diabetes and Endocrinology - [address] [phone] [place] [address] [place] [phone] Social History Tobacco Use Types Packs/Day Years [...] GI in [place] [facility]. Bev Ellis ([facility]). A1c 7.7 (September 2016) The HbA1c was [...] therapy; KATLYN = N; Verified Transmission to [employer]; Msg to Pharmacy: D/c Humalog, d/c Lantus; [...] HCl - 500 MG Oral Tablet; Therapy: (Recorded:[id number]) to Recorded Dispense: 0 Days ; #: Sufficient TABS; Refill: 0; KATLYN = N; Record; Last Updated By: Judy Ledesma;01/03/2015 11:58:23 PM 7. Omeprazole 20 MG Oral Capsule Delayed Release; TAKE 1 CAPSULE DAILY EVERY MORNING BEFORE BREAKFAST; Therapy: [id number] to Recorded Rx By: Eva Power; Dispense: 0 Days ; #: Sufficient Capsule Delayed Release; Refill: 0; KATLYN = N;Record 8. OneTouch Ultra Blue In Vitro Strip; TESTING 3 TIMES DAILY; Therapy: [id number] to (Evaluate:[id number]) Requested for: 85Bye9793; Last Rx:[id number] Ordered Rx By: Eva Power; Dispense: 90 Days ; #:3 X 100 Strip Box; Refill: 3; For: Uncontrolled type 2 diabetes mellitus with insulin therapy; KATLYN = N; Verified Transmission to [employer]; Last Updated By: Kenji PhillipsEden Therapeuticsdenys; 12/09/2016 12:11:17 PM 9. Xanax TABS; Therapy: (Recorded:[id number]) to Recorded Dispense: 0 Days ; #: Sufficient TABS; Refill: 0; KATLYN = N; Record; Last Updated By: Judy Ledesma;01/03/2015 11:58:23 PM 10. Xifaxan 550 MG Oral Tablet; Therapy: 20Qor3851 to Recorded Rx By: Eva Power; Dispense: 0 Days ; #: Sufficient Tablet; Refill: 0; KATLYN = N; Record Allergies 1. Azactam Recorded By: Eva Power; 09/09/2016 10:27:51 PM 2. azithromycin Recorded By: Juyd Ledesma; 01/03/2015 11:58:23 PM 3. aztreonam Recorded [...] Eva Power; 09/09/2016 10:27:05 PM Vitals Recorded: 52Vzl9145 11:45AM Heart Rate 94 Systolic 126 Diastolic [...] Normal. Results/Data *Glucose, Whole Blood In Office 09Lew1469 11:47AM Eva Power Test Name Result Flag Reference Glucose Finger Stick 242 mg/dl 70 - 110 mg/dl *A1C In Office 82Zbh3939 11:46AM Eva Power Test Name Result Flag [...] recommended for children and adults.; Status:Complete; Done: 79Hst4884 Ordered; For:Morbid obesity with BMI of 40.0-44.9, adult; Ordered By:Eva Power; 2. We recommend that you follow the Mediterranean diet. ; Status:Complete; Done: 96Lkm5652 Ordered; For:Morbid obesity with BMI of 40.0-44.9, adult; Ordered By:Eva Power; 3. Sproutel Ultra Mini w/Device Kit; USE DIRECTED Rx By: Eva Power; Dispense: 0 Days ; #:1 Kit; Refill: 0; For: Uncontrolled type 2 diabetes mellitus with insulin therapy; KATLYN = N; Verified Transmission to [employer]; Last Updated By: quickhuddle; 12/09/2016 12:11:19 PM 4. HumuLIN R U-500 KwikPen 500 UNIT/ML Subcutaneous Solution Pen-injector; inject 150 units before breakfast and lunch, and 100 untis before supper Rx By: Eva Power; Dispense: 0 Days ; #:4 X 3 ML Pen (2 Pens); Refill: 11; For: Uncontrolled type 2 diabetes mellitus with insulin therapy; KATLYN = N; Verified Transmission to [employer]; Last Updated By: Wingu LIFT12; 12/09/2016 12:11:18 PM 5. OneTouch Ultra Blue In Vitro Strip; TESTING 6 TIMES DAILY Rx By: Eva Power; Dispense: 0 Days ; #:2 X 100 Strip Box; Refill: 11; For: Uncontrolled type 2 diabetes mellitus with insulin therapy; KATLYN = N; Verified Transmission to [employer]; Last Updated By: Wingu LIFT12; 12/09/2016 12:11:17 PM 6. *A1C In Office; Status:Complete; Done: 73Bsr3614 11:46AM Performed:In Office; Due:19Kpf8914; Last Updated By:Chantelle Espinoza; 12/09/2016 11:47:16 AM;Ordered; For:Uncontrolled type 2 diabetes mellitus with insulin therapy; Ordered By:Eva Power; 7. *Glucose, Whole Blood In Office; Status:Complete; Done: 49Iml7437 11:47AM Performed:In Office; Due:06Mpb4539; Last Updated By:Chantelle Espinoza; 12/09/2016 11:47:16 AM;Ordered; For:Uncontrolled type 2 diabetes mellitus with insulin therapy; Ordered By:Eva Power; 8. CMP (Comprehensive Metabolic Profile); Status:Active; Requested for:11May2017; Perform:Other Lab; Due:42Mip2807;Ordered; For:Uncontrolled type 2 diabetes mellitus with insulin therapy; Ordered By:Eva Power; 9. Hemoglobin A1C Profile; Status:Active; Requested for:11May2017; Perform:Other Lab; Due:26Vyt3594;Ordered; For:Uncontrolled type 2 diabetes mellitus with insulin therapy; Ordered By:Eva Power; 10. TSH (Thyroid Stim Hormone); Status:Active; Requested for:11May2017; Perform:Other Lab; Due:10Jun2017;Ordered; For:Uncontrolled type 2 diabetes mellitus with insulin therapy; Ordered By:Eva Power; 11. Urine Microalbumin Profile; Status:Active; Requested for:11May2017; Perform:Other Lab; Due:86Gpw6699;Ordered; For:Uncontrolled type 2 diabetes mellitus with insulin [...] Eva Power M.D.; Dec 09 2016 10:20PM MEMBERSHIP ADMINISTRATOR (Author) documented in this encounter Plan of Treatment Upcoming Encounters Date Type Department Care Team (Late st Contact Info) Description 05/10/2024 11:40 AM MEMBERSHIP ADMINISTRATOR Office Visit [facility] Medical Group Diabetes and Endocrinology - [address] [phone] Eva Power MD [address] [place] [phone] documented as of this encounter Procedures [...]
--- OUTSIDE RECORDS SUMMARY | 2024-05-08 06:53 | XMS_ITS | Encounter Summary ---
Author Organization [facility] Address Critical access [facility] [place] [address] [place] [address] Care Team Providers Care Manager Air Name Role Phone Unavailable Primary Care Provider Unavailabl e Encounter Details Date Type Department Care Team (Late st Contact Info) Description 07/09/2015 Abstract [facility] [place] [address] [place] [address] Ar Nguyễn MD [address] [place] [phone] Social History Tobacco Use Types Packs/Day Years [...] st Contact Info) Description 05/10/2024 11:40 AM CORRECTIVE AND MANUAL ARTS THERAPIST Office Visit [facility] - [place] [address] [place] [address] Eva Power MD [address] [place] [address] documented as of this encounter Visit Diagnoses Not on filedocumented in this encounter
--- OUTSIDE RECORDS SUMMARY | 2024-05-08 06:53 | XMS_ITS | Encounter Summary ---
Author Organization [facility] Address [address] [place] [address]. [place] [address] [place] [address] Care Team Providers Care Voice Coach Name Role Phone Unavailable Primary Care Provider Unavailabl e Encounter Details Date Type Department Care Team (Late Contact Info) Description 08/03/2015 Abstract [place] [facility] [place] [address] Sean Morfin MD [address] [place] [phone] Social History Tobacco Use Types Packs/Day Years [...] (Late Contact Info) Description 05/10/2024 11:40 AM WHITE SUGAR SUPERVISOR Office Visit [facility] Diabetes and Endocrinology - [address] [phone] Eva Power MD [address] [place] [address] [place], [place] [phone] documented as of this encounter Visit Diagnoses Diagnosis Esophageal varices with bleeding (CMS/HCC HHS/HCC) documented in this encounter
--- OUTSIDE RECORDS SUMMARY | 2024-05-08 06:53 | XMS_ITS | Encounter Summary ---
Author Organization [facility] Address [address] [place] [address]. [place], [place] [phone] [place] [address] Care Team Providers Care Wood Stock Blank Handler Name Role Phone Unavailable Primary Care Provider Unavailabl e Encounter Details Date Type Department Care Team (Latest Contact Info) Description 02/22/2015 Abstract [facility] Ole Jones MD Social [...] that he has some arthritis a L3-L4 [place] with the pain in the right L4-L5 [...] 500 MG Oral Tablet Delayed Release; Therapy: [id number] to Recorded 2. Hydrocodone-Acetaminophen 10-325 MG Oral Tablet; Therapy: (Recorded:83Emw6143) to Recorded 3. MetFORMIN HCl - 500 MG Oral Tablet; Therapy: (Recorded:[id number]) to Recorded 4. Xanax TABS (ALPRAZolam); Therapy: (Recorded:33Gqc7283) to Recorded Allergies 1. azithromycin 2. esomeprazole [...] Need Information - Financial Authorization Requested for: [id number] At request the patient she will be referred to a neurosurgeon and spindle I recommended the name ofDr. Chu he was given a prescription for Ultram 50 mg 1-2 t.i.d. he will be call my office is regarding cultures recommendation for a Renny Vásquez Signatures Electronically signed by : Sean Jones M.D.; Feb 28 2015 10:24AM CASHIER GREETER (Author) documented in this encounter Plan of Treatment Upcoming Encounters Date Type Department Care Team (Late st Contact Info) Description 05/10/2024 11:40 AM CASHIER GREETER Office Visit [facility] Diabetes and Endocrinology - [address] [phone] Eva Power MD [address] [place] [phone] documented as of this encounter Visit Diagnoses Not on filedocumented in this encounter
--- OUTSIDE RECORDS SUMMARY | 2024-05-08 06:53 | XMS_ITS | Encounter Summary ---
Author Organization [facility] Address [address] [place] [address]. [place] [address] [place] [address] Care Team Providers Care Manager Case Name Role Phone Unavailable Primary Care Provider Unavailabl e Encounter Details Date Type Department Care Team (Late Contact Info) Description 07/01/2017 [facility] Emergency Room [address] [place] [address] [place] [address] Lukas Corea MD [address] [place] [address] Social History Tobacco Use Types Packs/Day Years [...] (Late Contact Info) Description 05/10/2024 11:40 AM FRESH FOODS CAKE DECORATOR Office Visit [facility] Diabetes and Endocrinology - [address] [phone] Eva Power MD [address] [place] [address] [place] [address] documented as of this encounter Procedures Procedure Name Priority Date/Time Associated Diagnosis Comments URINALYSIS STAT 07/01/2017 8:00 PM FRESH FOODS CAKE DECORATOR COMPREHENSIVE METABOLIC PANEL STAT 07/01/2017 7:28 PM FRESH FOODS CAKE DECORATOR CBC W/DIFF AUTOMATED STAT 07/01/2017 7:28 PM FRESH FOODS CAKE DECORATOR AMMONIA STAT 07/01/2017 7:28 PM FRESH FOODS CAKE DECORATOR documented in this encounter Results * (ABNORMAL) URINALYSIS (07/01/2017 8:00 PM FRESH FOODS CAKE DECORATOR) COLOR (U) YELLOW 07/01/2017 8:21 PM FRESH FOODS CAKE DECORATOR [facility] TRANSPARENCY CLEAR 07/01/2017 8:21 PM [facility] SPECIFIC GRAVITY (U) 1.025 1.000 - 1.025 07/01/2017 8:21 PM [facility] U PH 6.0 5.0 - 8.0 07/01/2017 8:21 PM [facility] LEUKOCYTES (U) NEGATIVE NEGATIVE 07/01/2017 8:21 PM [facility] NITRITES NEGATIVE NEGATIVE 07/01/2017 8:21 PM [facility] PROTEIN (U) NEGATIVE NEGATIVE 07/01/2017 8:21 PM [facility] URINE GLUCOSE 3+(A) NEGATIVE 07/01/2017 8:21 PM [facility] KETONES MG/DL (U) NEGATIVE NEGATIVE 07/01/2017 8:21 PM [facility] UROBILINOGEN 4.0(H) <1.0 EU/DL 07/01/2017 8:21 PM [facility] BILIRUBIN (U) NEGATIVE NEGATIVE 07/01/2017 8:21 PM [facility] BLOOD (U) NEGATIVE NEGATIVE 07/01/2017 8:21 PM [facility] WBC/HPF 0-5 0 - 5 /HPF 07/01/2017 8:21 PM [facility] RBC/HPF 0-5 0 - 5 /HPF 07/01/2017 8:21 PM [facility] EPI/HPF FEW /LPF 07/01/2017 8:21 PM [facility] MUCUS PRESENT 07/01/2017 8:21 PM [facility] 07/01/2017 8:00 PM FRESH FOODS CAKE DECORATOR 07/01/2017 8:08 PM FRESH FOODS CAKE DECORATOR us Generic Conversion Md RED URINE ORDERABLES Final Result [facility] [address] [place] [address], * (ABNORMAL) COMPREHENSIVE METABOLIC PANEL (07/01/2017 7:28 PM FRESH FOODS CAKE DECORATOR) GLUCOSE 308(H) 70 - 99 MG/DL 07/01/2017 7:57 PM [facility] BUN 12 9 - 21 MG/DL 07/01/2017 7:57 PM [facility] CREATININE S/P/B 0.78 0.72 - 1.25 MG/DL 07/01/2017 7:57 PM [facility] SODIUM S/P/B 139 136 - 145 MMOL/L 07/01/2017 7:57 PM [facility] POTASSIUM S/P/B 4.0 3.5 - 5.1 MMOL/L 07/01/2017 7:57 PM [facility] CHLORIDE S/P/B 106 98 - 107 MMOL/L 07/01/2017 7:57 PM [facility] CO2 24.0 22.0 - 29.0 MMOL/L 07/01/2017 7:57 PM [facility] CALCIUM S/P/B 9.0 8.4 - 10.2 MG/DL 07/01/2017 7:57 PM [facility] BILIRUBIN TOTAL S/P/B 1.2 0.2 - 1.2 MG/DL 07/01/2017 7:57 PM [facility] TOTAL PROTEIN S/P/B 6.9 6.0 - 8.3 G/DL 07/01/2017 7:57 PM [facility] ALBUMIN S/P/B 3.5 3.5 - 5.2 G/DL 07/01/2017 7:57 PM [facility] AST 50(H) 5 - 34 U/L 07/01/2017 7:57 PM [facility] ALT 57(H) 0 - 55 U/L 07/01/2017 7:57 PM [facility] ALKALINE PHOSPHATASE S/P/B 76 50 - 136 U/L 07/01/2017 7:57 PM [facility] OSMOLALITY (CALC) 289 275 - 300 MOSM/KG 07/01/2017 7:57 PM [facility] A/G RATIO 1.0 1.0 - 1.6 RATIO 07/01/2017 7:57 PM [facility] BUN CREATININE RATIO 15.4 12 - 20 07/01/2017 7:57 PM [facility] ANION GAP 9.0 7 - 16 MMOL/L 07/01/2017 7:57 PM [facility] EGFR NON-AFR. AMER. >60 >60 ML/MIN/1.7 3 M2 07/01/2017 7:57 PM [facility] EGFR AFR. AMER. >60 >60 ML/MIN/1.7 3 M2 07/01/2017 7:57 PM [facility] 07/01/2017 7:28 PM FRESH FOODS CAKE DECORATOR 07/01/2017 7:35 PM [facility] us Generic Conversion Md RED LABORATORY Final R esult [facility] [address] [place] [address], * (ABNORMAL) CBC W/DIFF AUTOMATED (07/01/2017 7:28 PM FRESH FOODS CAKE DECORATOR) WBC 4.1(L) 4.5 - 10.8 x10'3/uL 07/01/2017 7:46 PM [facility] RBC 4.47(L) 4.50 - 6.10 x10'6/uL 07/01/2017 7:46 PM [facility] HGB 12.7(L) 13.0 - 18.0 G/DL 07/01/2017 7:46 PM [facility] HCT 37.3 37.0 - 52.0 % 07/01/2017 7:46 PM [facility] MCV 83.4 78.0 - 100.0 FL 07/01/2017 7:46 PM [facility] MCH 28.4 27.0 - 31.0 PG 07/01/2017 7:46 PM [facility] MCHC 34.0 33.0 - 36.0 G/DL 07/01/2017 7:46 PM [facility] RDW 15.0(H) 11.5 - 14.5 % 07/01/2017 7:46 PM [facility] PLT 92(L) 150 - 350 x10'3/uL 07/01/2017 7:46 PM [facility] MPV 10.6(H) 7.4 - 10.4 FL 07/01/2017 7:46 PM [facility] SEG NEUTROPHILS 68.8 % 8 7:58 PM [facility] LYMPHOCYTES 19.2 % 07/01/2017 7:58 PM [facility] MONOCYTES 8.9 % 07/01/2017 7:58 PM [facility] EOSINOPHILS 2.2 % 07/01/2017 7:58 PM [facility] BASOPHILS 0.7 % 07/01/2017 7:58 PM [facility] IMMATURE GRANS % 0.2 % 07/01/19 18 7:58 PM [facility] NRBC 0.0 % 07/01/2017 7:58 PM [facility] ABS. NEUTROPHILS 2.82 1.60 - 8.30 x10'3/uL 07/01/2017 7:58 PM [facility] ABS. LYMPHOCYTES 0.79(L) 0.80 - 4.70 x10'3/uL 07/01/2017 7:58 PM [facility] ABS. MONOCYTES 0.36 0.00 - 1.50 x10'3/uL 07/01/2017 7:58 PM [facility] ABS. EOSINOPHILS 0.09 0.00 - 0.40 x10'3/uL 07/01/2017 7:58 PM FRESH FOODS CAKE DECORATOR [facility] ABS. BASOPHILS 0.03 0.00 - 0.20 x10'3/uL 07/01/2017 7:58 PM FRESH FOODS CAKE DECORATOR [facility] ABS. IMMATURE GRANULOCYTES 0.01 0.00 - 0.03 x10'3/uL 07/01/2017 7:58 PM FRESH FOODS CAKE DECORATOR [facility] ABS. NUCLEATED RBC'S 0.00 0.00 x10'3/uL 07/01/2017 7:58 PM FRESH FOODS CAKE DECORATOR [facility] PLT MORPH. DECREASED 07/01/2017 7:58 PM FRESH FOODS CAKE DECORATOR [facility] RBC MORPHOLOGY NORMAL 07/01/2017 7:58 PM FRESH FOODS CAKE DECORATOR [facility] OTHER (type in comments) 07/01/2017 7:28 PM FRESH FOODS CAKE DECORATOR 07/01/2017 7:35 PM FRESH FOODS CAKE DECORATOR Comment:WHOLE BLOOD SAMPLE us Generic Conversion Md RED LABORATORY Final R esult [facility] [address] [place] [address], [place] [phone] * (ABNORMAL) AMMONIA (07/01/2017 7:28 PM FRESH FOODS CAKE DECORATOR) AMMONIA 140(H) 18 - 72 UMOL/L 07/01/2017 7:53 PM FRESH FOODS CAKE DECORATOR [facility] PLASMA SPECIMEN / Unknown 07/01/2017 7:28 PM FRESH FOODS CAKE DECORATOR 07/01/2017 7:35 PM FRESH FOODS CAKE DECORATOR us Generic Conversion Md RED LABORATORY Final R esult [facility] [address] [place] [address], [place] [phone] documented in this encounter Visit Diagnoses Diagnosis Hepatic failure, without coma (CMS/HCC HHS/HCC) Other sequelae of chronic liver disease documented in this encounter
--- OUTSIDE RECORDS SUMMARY | 2024-05-08 06:53 | XMS_ITS | Encounter Summary ---
Author Organization [facility] Address [address] [place] [address]. [place] [address] [place] [address] Care Team Providers Care Optical Mechanic Name Role Phone Unavailable Primary Care Provider Unavailabl e Encounter Details Date Type Department Care Team (Late st Contact Info) Description 07/01/[address] [facility] Emergency Room [address] [facility] [place] [address] Social History Tobacco Use Types Packs/Day Years [...] Contact Info) Description 05/10/2024 11:40 AM MANAGER PE Office Visit [facility] Diabetes and Endocrinology - [address] [address] Eva Power MD [address] [place], [place] [address] [address] documented as of this encounter Visit Diagnoses Diagnosis Other chest pain documented in this encounter
--- OUTSIDE RECORDS SUMMARY | 2024-05-08 06:53 | XMS_ITS | Encounter Summary ---
Author Organization [facility] Address [address] [place] [address]. [place], [place] [address] [place] [address] Care Team Providers Care Assessment Technician Name Role Phone Unavailable Primary Care Provider Unavailabl e Encounter Details Date Type Department Care Team (Latest Contact Info) Description 11/12/2017 Abstract [facility] Social History Tobacco [...] out of the office tomorrow at an [facility] meeting, Leadership and PM meeting. If patient calls, ask the PSR to inform him I will call on Thursday. Thank you, Marry Barlow - 12 Nov 2017 9:53 AM TASK EDITED Noted. Informed PSR's to give his calls to practice director, not to nursing staff. Signatures Electronically signed by : Marry Holm R.N.; Nov 12 2017 9:54AM RATTLE LEAK AND SQUEAK REPAIRER (Author) documented in this encounter Plan of Treatment Upcoming Encounters Date Type Department Care Team (Late st Contact Info) Description 05/10/2024 11:40 AM RATTLE LEAK AND SQUEAK REPAIRER Office Visit [facility] Diabetes and Endocrinology - [address] [address] Eva Power MD [address] [place] [address] documented as of this encounter Visit Diagnoses Not on filedocumented in this encounter
--- OUTSIDE RECORDS SUMMARY | 2024-05-08 06:53 | XMS_ITS | Encounter Summary ---
Author Organization [facility] Address [address] [place] [address]. [place] [address] [place] [address] Care Team Providers Care Disintegrator Operator Name Role Phone Unavailable Primary Care Provider Unavailabl e Encounter Details Date Type Department Care Team (Late st Contact Info) Description 09/09/2016 Abstract [facility] Diabetes and Endocrinology - [address] [phone] Eva Power MD [address] [place] [phone] Social History Tobacco Use Types Packs/Day Years [...] in [facility] - [facility]. Bev Ellis ([facility]) The HbA1c was 7.7% performed on 08/20/16. [...] 7. Penicillins 8. Sulfa Drugs Vitals Recorded: [id number] 10:29PM Heart Rate 100 Systolic 126 Diastolic [...] therapy; KATLYN = N; Verified Transmission to [employer]; Last Updated By: JacquelineFutubra; 09/09/2016 11:48:37 AM 3. *Glucose, Whole Blood [...] Eva Power M.D.; Oct 09 2016 7:20PM HYDROPULPER OPERATOR (Author) documented in this encounter Plan of Treatment Upcoming Encounters Date Type Department Care Team (Late st Contact Info) Description 05/10/2024 11:40 AM HYDROPULPER OPERATOR Office Visit [facility] Diabetes and Endocrinology - [address] [phone] Eva Power MD [address] [place] [phone] documented as of this encounter Procedures Procedure [...]
--- OUTSIDE RECORDS SUMMARY | 2024-05-08 06:53 | XMS_ITS | Encounter Summary ---
Author Organization [facility] Address [address] [place] [address]. [place], [place] [address] [place] [address] Care Team Providers Care Mountain Bike Guide Name Role Phone Unavailable Primary Care Provider Unavailabl e Encounter Details Date Type Department Care Team (Latest Contact Info) Description 09/25/2017 Abstract [facility] Social History [...] Espinoza Task Name: Call Back Assigned To: [facility] Nurse Team Regarding Patient: Camilo Curry, [...] [employer] brand, sent to pharmacy, [facility] in [place]. I have called pharmacy and they are [...] 1:22 AM TASK REASSIGNED: Previously Assigned To [facility] Nurse Team Marry Holm - 25 Sep 2017 12:23 PM TASK EDITED Prior Auth initiated. Marry Holm - 25 Sep 2017 1:23 PM TASK EDITED [facility] [employer] and the insurance company was also call at [phone] and it was explained that this was an urgent request as patient waited until he was out of insulin to contact us. Marry Holm - 25 Sep 2017 1:23 PM TASK IN PROGRESS Signatures Electronically signed by : Marry Holm R.N.; Oct 06 2017 4:55PM CORRECTION LIEUTENANT (Author) documented in this encounter Plan of Treatment Upcoming Encounters Date Type Department Care Team (Late st Contact Info) Description 05/10/2024 11:40 AM CORRECTION LIEUTENANT Office Visit [facility] Medical Group Diabetes and Endocrinology - [address] [phone] Eva Power MD [address] [place] [phone] documented as of this encounter Visit Diagnoses Not on filedocumented in this encounter
--- OUTSIDE RECORDS SUMMARY | 2024-05-08 06:53 | XMS_ITS | Encounter Summary ---
Author Organization [facility] Address [address] [place] [address]. [place] [address] [place] [address] Care Team Providers Care Nurse Informaticist Name Role Phone Unavailable Primary Care Provider Unavailabl e Encounter Details Date Type Department Care Team (Late st Contact Info) Description 11/06/2015 [facility] Emergency Room [address] [facility] [place] [address] Gerry Faustin MD [address] [place] [address] Social History Tobacco Use Types Packs/Day [...] (Late Contact Info) Description 05/10/2024 11:40 AM WAREHOUSE TEAM LEADER Office Visit [facility] Diabetes and Endocrinology - [address] [phone] Eva Power MD [address] [place] [phone] documented as of this encounter Visit Diagnoses Diagnosis Diarrhea documented in this encounter
--- OUTSIDE RECORDS SUMMARY | 2024-05-08 07:26 | XMS_ITS | Encounter Summary ---
Author Organization [facility] Address [address] [place] [address] Phone Care Team Providers Care Manager Visual Name Role Phone Braydon Pavon Kunal NEAL Primary Care Provider [phone] Vikram Mora MD Unavailable Riddhi Bello APRN, MARINE BIOLOGIST Unavailable Reason for Referral * Radiology Services (Routine) - Closed Specialty Diagnoses / Procedures Referred By Jordan t Referred To Contact Radiology Diagnoses Constipation, unspecified constipation type Procedures XR ABDOMEN KUB FLAT PLATE Riddhi Bello APRN, MARINE BIOLOGIST [address] [place] [address] Phone: tel: fax: Referral ID Status Reason Start Date Expiration Date Visits Re quested Visits Authorized [id number] Closed 01/05/2024 1 1 Reason for Visit * Reason Onset Date Comments Appointment 01/05/2024 Constipation 01/05/2024 Encounter Details Date Type Department Care Team (Late st Contact Info) Description 01/05/2024 Telephone [facility] - Gastroenterology [address] [place] [phone] Riddhi Bello APRN, MARINE BIOLOGIST [address] [place] [address] Appointment; Constipation Social History Tobacco Use Types Packs/Day Years Used Date Smoking Tobacco: Former Cigarettes Q uit: 2002 Smokeless Tobacco: Never Alcohol Use Standard Drinks/Week Comments Not Currently 0 (1 standard drink = 0.6 oz pur e alcohol) Sexually Active Control Partners Comments Yes Female Sex and Gender Information Value Date Recorded Sex Assigned at Not on file Legal Sex Male 10:58 AM TRANSMISSION SUPERVISOR Gender Identity Not on file Sexual Orientation Not on file documented as of this encounter Miscellaneous Notes * Addendum Note - Blake Sorenson RN - 01/05/2024 3:06 PM CDTAddended by: BLAKE SORENSON on: 01/05/2024 03:06 PM Modules accepted: Orders * Telephone Encounter - Blake Sorenson RN - 01/05/2024 2:59 PM CDT Patient states he can do it at [facility]. Spoke with Analisa Bello NP, patient can [...] for appt on 01/07/2024 per Analisa Bello FORESTRY FIRE AIDE, referral placed to external hepatology on 06/09/2023. Per chart review, patient had office visit with Dr. Wilson on 12/29/2023. Spoke with patient, states he saw liver specialist, and was advised to follow up with GI provider. Reviewed with Analisa Bello FORESTRY FIRE AIDE. Patient reports that he has been having [...] PM T: ??01/08/2024 12:51 PM Report ID: [id number] Reading Location: [id number] Procedure Note Carl Tubbs MD - 01/08/2024 [...] signed by Kyle KEMP: VIRIDIANA Report ID: [id number] Reading Location: [id number] IMPRESSION: No acute finding. There is a large amount of stool in the right colon. Riddhi Bello FRUIT VENDOR, MARINE BIOLOGIST IMG DIAGNOSTIC OR DERABLES Final Result documented in this encounter Visit Diagnoses Diagnosis Constipation, unspecified constipation type- Primary Constipation, unspecified constipation type documented in this encounter Care Teams Manager Visual Relationship Specialty Start Date End Date Braydon Pavon PAC [address] [place] [address] PCP - General Physician Heater Mechanic 06/22/18 Vikram Mora MD [address] [phone] Consulting Physician Endocrinology 05/21/23 Riddhi Bello APRN, MARINE BIOLOGIST [address] [place] [address] Nurse Practitioner Advanced Practice Nurse 02/10/23 documented as of this encounter
--- OUTSIDE RECORDS SUMMARY | 2024-05-08 07:26 | XMS_ITS | Encounter Summary ---
Author Organization [facility] Address [address] [place] [address] Phone Care Team Providers Care Swimming Pool Service Technician Name Role Phone Braydon Pavon Kunal NEAL Primary Care Provider [phone] Vikram Mora MD Unavailable Riddhi Bello APRN, CNP Unavailable Reason for Visit * Reason Comments Medication Refill Encounter Details Date Type Department Care Team (Late st Contact Info) Description 02/01/2024 Refill [facility] - Endocrinology - [address] [place] [address] Vikram Mora MD [address] [phone] Medication Refill Social History Tobacco [...] on file Legal Sex Male 10:58 AM TERRA COTTA ROOFER HELPER Gender Identity Not on file Sexual [...] on filedocumented in this encounter Care Teams Swimming Pool Service Technician Relationship Specialty Start Date End Date Braydon Pavon, [facility] [address] [place] [address] PCP - General Physician Transmission Inspector 06/22/18 Vikram Mora MD [address] [phone] Consulting Physician Endocrinology 05/21/23 Riddhi Bello APRN, ASSISTANT THERAPY AIDE [address] [place] [address] Nurse Practitioner Advanced Practice Nurse 02/10/23 documented as of this encounter
--- OUTSIDE RECORDS SUMMARY | 2024-05-08 07:26 | XMS_ITS | Clinical Summary ---
Author Organization [facility] Address [address] [place] [address] Phone Care Team Providers Care Beef Grader Name Role Phone Braydon Pavon VAL Primary Care Provider [phone] Vikram Mora MD Unavailable Riddhi Bello APRN, SENIOR ANIMATOR Unavailable Allergies Active Allergy Reactions Criticality Noted [...] as needed. 3 Active ergocalciferol (VITAMIN D) 81668 UNIT Capsule Take 50,000 Units by mouth. Active Insulin Pen Needle (B-D ULTRAFINE III SHORT PEN) 31G X 8 MM Misc 1 Active Insulin Pen Needle (B-D ULTRAFINE III SHORT PEN) 31G X 8 MM Misc 1 Each by Subcutaneous route. 1 Active Insulin Pen Needle (Pen [place]) 32G X 4 MM Misc Inject 3 [...] 10 Tablet 4 Active Continuous Blood Gluc Clay Burner (Dexcom G7 Clay Burner) Device Check blood glucose before each meal and at bedtime 1 Each 4 Active HYDROcodone-bella taminophen ([place]) 10-325 MG Tablet Take 1 Tablet by [...] on file Legal Sex Male 10:58 AM IRISH MOSS GATHERER Gender Identity Not on file Sexual Orientation [...] W/ ESTIMATED GLUCOSE STAT 05/20/2023 10:44 AM IRISH MOSS GATHERER from Last 3 Months or Most Recently Relevant to Health Maintenance Results * (ABNORMAL) CMP (Comprehensive Metabolic Panel) (11/13/2023 6:40 PM CDT) SODIUM 139 136 - 145 mmol/L 11/13/2023 7:25 PM CDT [facility] POTASSIUM 3.7 3.5 - 5.1 mmol/L 11/13/2023 7:25 PM CDT [facility] CHLORIDE 105 98 - 107 mmol/L 11/13/2023 7:25 PM CDT [facility] CO2, VENOUS 24 22 - 30 mmol/L 11/13/2023 7:25 PM CDT [facility] ANION GAP 13.7 <18.0 mmol/L 11/13/2023 7:25 PM CDT [facility] GLUCOSE 188(H) 70 - 99 mg/dL 11/13/2023 7:25 PM CDT [facility] BUN 11 8 - 26 mg/dL 11/13/2023 7:25 PM CDT [facility] CREATININE, BLOOD 0.84 0.70 - 1.30 mg/dL 11/13/2023 7:25 PM CDT [facility] BUN/CREATININE RATIO 13 12 - 20 ratio 11/13/2023 7:25 PM CDT [facility] TOTAL PROTEIN 7.3 6.3 - 8.2 g/dL 11/13/2023 7:25 PM CDT [facility] ALBUMIN 3.9 3.5 - 5.0 g/dL 11/13/2023 7:25 PM CDT [facility] A/G RATIO 1.1 1.0 - 2.2 11/13/2023 7:25 PM CDT [facility] CALCIUM 9.4 8.7 - 10.5 mg/dL 11/13/2023 7:25 PM CDT [facility] T BILI 3.6(H) 0.2 - 1.2 mg/dL 11/13/2023 7:25 PM CDT [facility] SGOT (AST) 27 5 - 34 U/L 11/13/2023 7:25 PM CDT [facility] SGPT (ALT) 17 0 - 55 U/L 11/13/2023 7:25 PM CDT [facility] ALKALINE PHOSPHATASE 90 40 - 150 U/L 11/13/2023 7:25 PM CDT [facility] GFR, ESTIMATED >60 >=60 11/13/2023 7:25 PM CDT [facility] Comment: Creatinine Clearance is the preferred criteria for selecting drug dose adjustments in renally impaired patients. ??The GFR is provided as additional pertinent clinical information. GFR is reported in mL/min/1.73 sq m. Calculation based on the Chronic Kidney Disease Epidemiology Collaboration (CKD- EPI) equation refit without adjustment for race. GFR, EST. >60 >=60 024 7:25 PM CDT [facility] GFR, EST. NONAFRICAN >60 >=60 11/13/2023 7:25 PM CDT [facility] Blood Venipuncture / Unknown 11/13/2023 6:40 PM CDT 11/13/2023 7:00 PM CDT us Lul Junior DO CHEMISTRY ORDERABLES Fi nal Result [facility] [address] [place] [address] * (ABNORMAL) Hemoglobin A1C (05/20/2023 10:44 AM IRISH MOSS GATHERER) HGB-A1C 11.6(H) 4.0 - 6.0 % 05/20/2023 12:30 PM IRISH MOSS GATHERER [facility] Est Average Glucose 286.2 mg/dL 05/20/2023 12:30 PM IRISH MOSS GATHERER [facility] Blood Venipuncture / Unknown 05/20/2023 10:44 AM IRISH MOSS GATHERER 05/20/2023 11:01 AM IRISH MOSS GATHERER Narrative [facility] - 05/20/2023 12:30 PM IRISH MOSS GATHERER HEMOGLOBIN A1C: DIABETIC PATIENTS: WELL-CONTROLLED: ?? 6.2 - 7.0 INTERMEDIATE WELL-CONTROLLED: ??7.0 - 9.0 POORLY-CONTROLLED: ??>9.0 us Felicitas Luz CAR DEALER, SENIOR ANIMATOR CHEMISTRY ORDERABLES Final Result [facility] [address] [place] [address] from Last 3 Months or Most Recently Relevant to Health Maintenance Insurance MEDICAID [employer]ETNA [facility] [place] TPL Care Teams Beef Grader Relationship Specialty Start Date End Date Braydon Pavon PAC [address] [place] [address] PCP - General Physician System Safety Engineer 06/22/18 Vikram Mora MD [address] [phone] Consulting Physician Endocrinology 05/21/23 Riddhi Bello APRN, SENIOR ANIMATOR [address] [place] [address] Nurse Practitioner Advanced Practice Nurse 02/10/23
--- OUTSIDE RECORDS SUMMARY | 2024-05-08 07:26 | XMS_ITS | Encounter Summary ---
Author Organization [facility] Address [address] [place] [address] Phone Care Team Providers Care Ballpoint Pen Assembly Machine Operator Name Role Phone LibradoBraydon Primary Care Provider [phone] Vikram Mora MD Unavailable Riddhi Bello APRN, CNP Unavailable Reason for Referral * Radiology Services (Routine) - Closed Specialty Diagnoses / Procedures Referred By Contac t Referred To Contact Radiology Diagnoses Constipation, unspecified constipation type Procedures XR ABDOMEN KUB FLAT PLATE Riddhi Bello APRN, LUMBER PRESS OPERATOR [address] [place] [address] Phone: tel: fax: Referral ID Status Reason Start Date Expiration Date Visits Re quested Visits Authorized [id number] Closed 01/05/2024 1 1 Reason for Visit * Radiology Services (Routine) - Closed Specialty Diagnoses / Procedures Referred By Contac t Referred To Contact Radiology Diagnoses Constipation, unspecified constipation type Procedures XR ABDOMEN KUB FLAT PLATE Riddhi Bello APRN, LUMBER PRESS OPERATOR [address] [place] [address] Phone: tel: fax: Referral ID Status Reason Start Date Expiration Date Visits Re quested Visits Authorized [id number] Closed 01/05/2024 1 1 Encounter Details Date Type Department Care Team (Late st Contact Info) Description 01/07/2024 8:00 AM CDT - 01/07/2024 11:59 PM CDT Hospital Encounter [facility] Diagnostic Radiology [address] [place] [address] Riddhi Bello APRN, LUMBER PRESS OPERATOR [address] [place] [address] Discharge Disposition: Discharged to home or Selfcare [...] on file 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 12/31/2023 ergocalciferol (VITAMIN D) 85036 UNIT Capsule Take 50,000 Units by mouth. [...] 25 mg by mouth daily. HYDROcodone-aceta minophen ([place]) 10-325 MG Tablet Take 1 Tablet by [...] Subcutaneous route. 11/07/2020 Insulin Pen Needle (Pen [place]) 32G X 4 MM Misc Inject 3 [...] PM T: ??01/08/2024 12:51 PM Report ID: [id number] Reading Location: ??[id number] Procedure Note Carl Tubbs MD - 01/08/2024 [...] Kyle Tubbs M.D. VIRIDIANA: VIRIDIANA Report ID: [id number] Reading Location: [id number] IMPRESSION: No acute finding. There is a large amount of stool in the right colon. Riddhi Bello APRN, CNP IMG DIAGNOSTIC OR DERABLES Final Result documented in this encounter Visit Diagnoses Diagnosis Constipation, unspecified constipation type documented in this encounter Care Teams Ballpoint Pen Assembly Machine Operator Relationship Specialty Start Date End Date Braydon Pavon, [facility] [address] [place] [address] PCP - General Physician Wheel Fitter 06/22/18 Vikram Mora MD [address] [phone] Consulting Physician Endocrinology 05/21/23 Riddhi Bello APRN, CNP [address] [place] [address] Nurse Practitioner Advanced Practice Nurse 02/10/23 documented as of this encounter
--- OUTSIDE RECORDS SUMMARY | 2024-05-08 07:26 | XMS_ITS | Encounter Summary ---
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 Gender Identity Not on file Sexual Orientation Not on file documented as of this encounter Plan of Treatment Not on file documented as of this encounter Visit Diagnoses Not on filedocumented in this encounter Additional Health Concerns Infection Onset Date Last Indicated Resolved Time COVID - 19 11/13/2023 11/13/2023 11/13/2023 8:24 PM CDT documented as of this encounter Care Teams Explosive Operator Grenade Relationship Specialty Start Date End Date Braydon Pavon PAC [address] [place] [address] PCP - General Physician Urology Physician Assistant 06/22/18 Vikram Mora MD [address] [phone] Consulting Physician Endocrinology 05/21/23 Riddhi Bello APRN, HOME HELP AIDE [address] [place] [address] Nurse Practitioner Advanced Practice Nurse 02/10/23 documented as of this encounter
--- OUTSIDE RECORDS SUMMARY | 2024-05-08 07:26 | XMS_ITS | Encounter Summary ---
Author Organization [facility] Address [address] [place] [address] Phone Care Team Providers Care Medical Liaison Name Role Phone Braydon Pavon Kunal NEAL Primary Care Provider [phone] Vikram Mora MD Unavailable Riddhi Bello APRN, CNP Unavailable Reason for Visit * Reason Comments Follow-up Encounter Details Date Type Department Care Team (Latest Contact Info) Description 01/07/2024 9:00 AM CDT Office Visit [facility] - [place] [address] [place] [address] Riddhi Bello APRN, SCOURING TRAIN OPERATOR [address] [place], [place] [id number] Drug-induced constipation (Primary Dx); Liver cirrhosis secondary [...] on file 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 Testing that was ordered at that time included HIDA scan, blood work. Medication changes included none. ER/hospital visits related to this issue since last office visit: None Patient has been seen by [facility] liver clinic twice since his last office [...] He is to have an MRI at [facility] later this month Past GI procedures include [...] SNARE, DIVERTICULOSIS; Surgeon: Ac Berger MD; Location: [facility]; Service: Gastroenterology COLONOSCOPY W/ BIOPSY 2005 EGD WITH BANDING EGD WITH BANDING TIPS PROCEDURE TIMES 2 UPPER GASTROINTESTINAL ENDOSCOPY N/A 03/24/2023 Procedure: EGD-PORTAL HYPERTENSIVE GASTROPATHY, GRADE ONE ESOPHAGEAL VARCIES; Surgeon: Ac Berger MD; Location: [facility]; Service: Gastroenterology Medications: Current Outpatient Medications: albuterol 108 (90 Base) MCG/ACT Aerosol Solution ALPRAZolam (XANAX) 1 MG Tablet carvedilol (COREG) 3.125 MG Tablet Continuous Blood Gluc Subsurface Augmentee Elint Operator (Dexcom G7 Subsurface Augmentee Elint Operator) Device Continuous Blood Gluc Sensor (Dexcom G7 Sensor) Misc Enulose 10 GM/15ML Solution ergocalciferol (VITAMIN D) 66307 UNIT Capsule famotidine (PEPCID) 20 MG Tablet famotidine (PEPCID) 20 MG Tablet Glucose Blood Strip HumaLOG KwikPen 100 UNIT/ML Solution Pen-injector hydroCHLOROthiazide 25 MG Tablet HYDROcodone-acetaminophen ([place]) 10-325 MG Tablet HYDROcodone-acetaminophen ([place]) 7.5-325 MG Tablet Insulin Pen Needle (B-D ULTRAFINE III SHORT PEN) 31G X 8 MM Misc Insulin Pen Needle (B-D ULTRAFINE III SHORT PEN) 31G X 8 MM Misc Insulin Pen Needle (Pen [place]) 32G X 4 MM Misc Lantus SoloStar [...] APRN, CNP This note was transcribed using DrAvailable speech recognition software. As a result, there may be unintended grammar and spelling errors. 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
--- OUTSIDE RECORDS SUMMARY | 2024-05-08 07:26 | XMS_ITS | Encounter Summary ---
Author Organization [facility] Address [address] 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 Patient no longer sees dr. Mora. See August office note. documented in this encounter Plan of Treatment Not on file documented as of this encounter Visit Diagnoses Not on filedocumented in this encounter Care Teams Services Coordinator Relationship Specialty Start Date End Date Braydon Pavon, [facility] [address] [place] [address] PCP - General Physician Special Education Inclusion Teacher 06/22/18 Vikram Mora MD [address] [phone] Consulting Physician Endocrinology 05/21/23 Riddhi Bello APRN, RN [facility] [address] [place] [address] Nurse Practitioner Advanced Practice Nurse 02/10/23 documented as of this encounter
--- OUTSIDE RECORDS SUMMARY | 2024-05-08 07:26 | XMS_ITS | Encounter Summary ---
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 Gender Identity Not on file Sexual Orientation Not on file documented as of this encounter Plan of Treatment Not on file documented as of this encounter Visit Diagnoses Not on filedocumented in this encounter Care Teams Bill Peddler Relationship Specialty Start Date End Date Braydon Pavon PAC [address] [place] [address] PCP - General Physician Loom Inspector 06/22/18 Vikram Mora MD [address] [phone] Consulting Physician Endocrinology 05/21/23 Riddhi Bello APRN, MANAGER LOSS PREVENTION [address] [place] [address] Nurse Practitioner Advanced Practice Nurse 02/10/23 documented as of this encounter
--- OUTSIDE RECORDS SUMMARY | 2024-05-08 07:27 | XMS_ITS | Encounter Summary ---
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 Gender Identity Not on file Sexual Orientation Not on file documented as of this encounter Plan of Treatment Not on file documented as of this encounter Visit Diagnoses Not on filedocumented in this encounter Care Teams Soft Metals Engraver Hand Relationship Specialty Start Date End Date Braydon Pavon PAC [address] [place] [address] PCP - General Physician Anesthesia Associate 06/22/18 Vikram Mora MD [address] [phone] Consulting Physician Endocrinology 05/21/23 Riddhi Bello APRN, TELEPHONIC CASE MANAGER [address] [place] [address] Nurse Practitioner Advanced Practice Nurse 02/10/23 documented as of this encounter
--- OUTSIDE RECORDS SUMMARY | 2024-05-08 07:27 | XMS_ITS | Encounter Summary ---
Author Organization [facility] Address [address] 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 Gender Identity Not on file Sexual Orientation Not on file documented as of this encounter Plan of Treatment Not on file documented as of this encounter Visit Diagnoses Not on filedocumented in this encounter Care Teams Dog Behaviorist Relationship Specialty Start Date End Date Braydon Pavon PAC [address] [place] [address] PCP - General Physician Chain Testing Machine Operator 06/22/18 Vikram Mora MD [address] [phone] Consulting Physician Endocrinology 05/21/23 Riddhi Bello APRN, SHAKE FEEDER [address] [place] [address] Nurse Practitioner Advanced Practice Nurse 02/10/23 documented as of this encounter
--- OUTSIDE RECORDS SUMMARY | 2024-05-08 07:27 | XMS_ITS | Encounter Summary ---
Author Organization [facility] Address [address] 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 Patient did see hepatology at [facility] on 07/14/2023. Dr. Bedolla is who he [...] on filedocumented in this encounter Care Teams Fireworks Assembly Supervisor Relationship Specialty Start Date End Date Braydon Pavon PAC [address] [place] [address] PCP - General Physician Ribbing Machine Operator 06/22/18 Vikram Mora MD [address] [phone] Consulting Physician Endocrinology 05/21/23 Riddhi Bello APRN, PROVIDER EDUCATION SPECIALIST [address] [place] [address] Nurse Practitioner Advanced Practice Nurse 02/10/23 documented as of this encounter
--- OUTSIDE RECORDS SUMMARY | 2024-05-08 07:27 | XMS_ITS | Encounter Summary ---
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 Gender Identity Not on file Sexual Orientation Not on file documented as of this encounter Plan of Treatment Not on file documented as of this encounter Visit Diagnoses Not on filedocumented in this encounter Care Teams County Program Technician Relationship Specialty Start Date End Date Braydon Pavon PAC [address] [place] [address] PCP - General Physician Music Pastor 06/22/18 Vikram Mora MD [address] [phone] Consulting Physician Endocrinology 05/21/23 Riddhi Bello APRN, CASE MONITOR [address] [place] [address] Nurse Practitioner Advanced Practice Nurse 02/10/23 documented as of this encounter
--- OUTSIDE RECORDS SUMMARY | 2024-05-08 07:27 | XMS_ITS | Encounter Summary ---
Author Organization [facility] Address [address] [place] [address] Phone Care Team Providers Care Engineering Officer Name Role Phone Braydon Pavon Kunal NEAL Primary Care Provider [phone] Vikram Mora MD Unavailable Riddhi Bello APRN, CNP Unavailable Reason for Visit * Reason Comments High Blood Sugar Generalized Body Aches Encounter Details Date Type Department Care Team (Late st Contact Info) Description 11/13/2023 6:15 PM CDT - 11/13/2023 8:22 PM CDT Emergency [facility] Emergency [address] [place] [address] Lul Junior, DO [address] [place] [address] Glucosuria Discharge Disposition: Discharged to home or [...] on file 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 [facility]!!! GO [facility] !!! GO [facility]!!! documented in this encounter Medications at Time of Discharge albuterol 108 (90 Base) MCG/ACT Aerosol Solution every 4 hours as needed. 02/02/2023 ALPRAZolam (XANAX) 1 MG Tablet Take by mouth as needed. carvedilol (COREG) 3.125 MG Tablet Take 1 Tablet by mouth 2 times daily. 180 Tablet 3 02/17/2023 Continuous Blood Gluc Steam Fitter Supervisor Maintenance (Dexcom G7 Steam Fitter Supervisor Maintenance) Device Check blood glucose before each meal and at bedtime 1 Each 06/01/2023 ergocalciferol (VITAMIN D) 21150 UNIT Capsule Take 50,000 Units by mouth. [...] Subcutaneous route. 11/07/2020 Insulin Pen Needle (Pen Stafford) 32G X 4 MM Misc Inject 3 [...] a week. 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 Bedolla, and he is trying [...] 03/24/2023) 180 Tablet 3 Continuous Blood Gluc Steam Fitter Supervisor Maintenance (Dexcom G7 Steam Fitter Supervisor Maintenance) Device Check blood glucose before each meal andat bedtime 1 Each 0 Continuous Blood Gluc Sensor (Dexcom G7 Sensor) Misc Change sensor every 10 days. 9 Each 1 ergocalciferol (VITAMIN D) 14218 UNIT Capsule Take 50,000 Units by mouth. [...] by Subcutaneous route. Insulin Pen Needle (Pen Stafford) 32G X 4 MM Misc Inject 3 [...] SNARE, DIVERTICULOSIS; Surgeon: Ac Berger MD; Location: [facility]; Service: Gastroenterology COLONOSCOPY W/ BIOPSY 2005 EGD WITH BANDING EGD WITH BANDING TIPS PROCEDURE TIMES 2 UPPER GASTROINTESTINAL ENDOSCOPY N/A 03/24/2023 Procedure: EGD-PORTAL HYPERTENSIVE GASTROPATHY, GRADE ONE ESOPHAGEAL VARCIES; Surgeon: Ac Berger MD; Location: [facility]; Service: Gastroenterology Social History [...] Making I have recommended close follow up [facility] or [facility] for GI evaluation and further [...] Oral, 2 TIMES DAILY Continuous Blood Gluc Steam Fitter Supervisor Maintenance (Dexcom G7 Steam Fitter Supervisor Maintenance) Device Check blood glucose before each meal [...] 1 Each, Subcutaneous Insulin Pen Needle (Pen Stafford) 32G X 4 MM Misc Inject 3 [...] 03/24/2023) 180 Tablet 3 Continuous Blood Gluc Steam Fitter Supervisor Maintenance (Dexcom G7 Steam Fitter Supervisor Maintenance) Device Check blood glucose before each meal andat bedtime 1 Each 0 Continuous Blood Gluc Sensor (Dexcom G7 Sensor) Misc Change sensor every 10 days. 9 Each 1 ergocalciferol (VITAMIN D) 86728 UNIT Capsule Take 50,000 Units by mouth. [...] by Subcutaneous route. Insulin Pen Needle (Pen Stafford) 32G X 4 MM Misc Inject 3 [...] high yesterday and he was seen at [facility]. Pt states that his sister is an RN and she told pt his eyes were yellow and made him come to ed. Pt states bs is in [employer] documented in this encounter Miscellaneous Notes * PatientPass Patient Instructions - SandiLul, - 11/13/2023 8:06 PM CDT Images from the original note were not included. Patient Education Table of Contents Fatigue Jaundice, Adult To view videos and all your education online visit, [email or web address] or scan this QR code with your [...] Follow these instructions at home: Medicines Take ryth-[id number] and prescription medicines only as told by [...] the National Suicide Prevention Lifeline at or 448. This is open 24 hours a day. Text the Crisis Text Line at 044430. Summary If you have fatigue, you feel [...] 2008-02-15 Document Updated: 2022-02-10 Document Reviewed: 2022-02-10 [employer] Patient Education ? 2023 [employer] Jaundice, Adult Jaundice is when the [...] ducts. Follow these instructions at home: Take [id number] and prescription medicines only as told by [...] 2006-04-20 Document Updated: 2021-08-01 Document Reviewed: 2021-08-01 [employer] Patient Education ? 2023 [employer]. documented in this encounter Plan of Treatment [...] Negative Negative, Error 11/13/2023 8:24 PM CDT [facility] FLU B Negative Negative 11/13/2023 8:24 PM CDT [facility] RESP SYNC VIRUS Negative Negative 8:24 PM CDT [facility] SARSCOV2 NOT DETECTED (Reference Range for this test is Not Detected) 11/13/2023 8:24 PM CDT [facility] Comment:This test was perfor med by a Reverse Audio Visual Engineer PCR Method. Swab NASOPHARYNGEAL SWAB / Unknown Non-Phlebotomy Collection / Unknown 11/13/2023 7:25 PM CDT 11/13/2023 7:41 PM CDT Narrative [facility] - 11/13/2023 8:24 PM CDT This test has not been FDA cleared or approved; the test has been authorized by FDA under an Emergency Use Authorization (EUA) for use by laboratories certified under the CLIA that meet the requirements to perform moderate, high or waived complexity tests. Authorized Fact Sheets about this test for providers and patients are available at: https://www.fda.gov/medical-devices/xmfmsytnk-kwwkzxyqpg-ttwtxhv-devices/emergen cy-us e-authorizations us Lul Junior DO MICROBIOLOGY - GENERAL ORDERABLES Final Result [facility] [address] [place] [address] * (ABNORMAL) URINALYSIS REFLEX IF INDICATED BY ABNORMAL RESULTS (11/13/2023 6:53 PM CDT) SPECIFIC GRAVITY 1.025 1.003 - 1.030 11/13/2023 7:30 PM CDT [facility] URINE PH 5.0 5.0 - 9.0 11/13/2023 7:30 PM CDT [facility] WBC ESTERASE 25 /ul(A) Negative 11/13/2023 7:30 PM CDT [facility] NITRITE Negative Negative 11/13/2023 7:30 PM CDT [facility] PROTEIN, RANDOM URINE 30 mg/dL(A) Negative 11/13/2023 7:30 PM CDT [facility] URINE GLUCOSE, QUAL 1000 mg/dL(A) Negative 11/13/2023 7:30 PM CDT [facility] URINE KETONES 5 mg/dL(A) Negative 11/13/2023 7:30 PM CDT [facility] UROBILINOGEN 4 mg/dL(A) Normal mg/dL 11/13/2023 7:30 PM CDT [facility] URINE BLOOD Negative Negative kristan/ul 11/13/2023 7:30 PM CDT [facility] URINALYSIS COLOR Dark Yellow 024 7:30 PM CDT [facility] URINALYSIS CLARITY Clear 11/13/2023 7:30 PM CDT [facility] WBC (Urine) 0-5 Negative, 0-5 /hpf 11/13/2023 7:30 PM CDT [facility] URINE RBC'S Negative Negative, 0-2 /hpf 11/13/2023 7:30 PM CDT [facility] EPITHELIAL CELLS Negative /lpf 07/12/20 24 7:30 PM CDT [facility] BACTERIA, URINE Negative Negative /hpf 11/13/2023 7:30 PM CDT [facility] URINE MUCOUS Few 11/13/2023 7:30 PM CDT [facility] Urine URINE SPECIMEN / Unknown Non-Phlebotomy Collection / Unknown 11/13/2023 6:53 PM CDT 11/13/2023 7:07 PM CDT us Lul Junior DO URINE ORDERABLES Final Result [facility] [address] [place] [address] * (ABNORMAL) CBC with Auto Differential (11/13/2023 6:40 PM CDT) WBC 5.07 4.00 - 12.00 10(3)/mcL 11/13/2023 7:13 PM CDT [facility] RBC 5.92(H) 4.40 - 5.80 10(6)/mcL 11/13/2023 7:13 PM CDT [facility] HEMOGLOBIN (HGB) 16.2 13.0 - 16.5 g/dL 11/13/2023 7:13 PM CDT [facility] HEMATOCRIT (HCT) 45.2 38.0 - 50.0 % 11/13/2023 7:13 PM CDT [facility] MCV 76.4(L) 82.0 - 96.0 fL 11/13/2023 7:13 PM CDT [facility] MCH 27.4 26.0 - 32.0 pg 11/13/2023 7:13 PM CDT [facility] MCHC 35.8 31.0 - 36.0 g/dL 11/13/2023 7:13 PM CDT [facility] PLATELET COUNT 94(L) 140 - 440 10(3)/mcL 11/13/2023 7:13 PM CDT [facility] RDW 17.4(H) 11.8 - 15.5 % 11/13/2023 7:13 PM CDT [facility] MPV 10.3 8.0 - 12.6 fL 11/13/2023 7:13 PM CDT [facility] NRBC PER 100 WBC 0 11/13/2023 7:13 PM CDT [facility] Blood Venipuncture / Unknown 11/13/2023 6:40 PM CDT 11/13/2023 7:00 PM CDT Lul Junior DO HEMATOLOGY ORDERABLES F inal Result Performing Organization Address City/[facility]/ZIP Co de Phone Number [facility] [address] [place] [address] * ACETONE QUAL (11/13/2023 6:40 PM CDT) ACETONE Negative Negative 11/13/2023 7:33 PM CDT [facility] Blood Venipuncture / Unknown 11/13/2023 6:40 PM CDT 11/13/2023 7:00 PM CDT Lul Junior DO CHEMISTRY ORDERABLES Fi nal Result Performing Organization Address [facility] Co de Phone Number [facility] [address] [place] [address] * Lipase (11/13/2023 6:40 PM CDT) LIPASE 16 8 - 78 U/L 11/13/2023 7:25 PM CDT [facility] Blood Venipuncture / Unknown 11/13/2023 6:40 PM CDT 11/13/2023 7:00 PM CDT Lul Junior DO CHEMISTRY ORDERABLES Fi nal Result [facility] [address] [place] [address] * (ABNORMAL) CMP (Comprehensive Metabolic Panel) (11/13/2023 6:40 PM CDT) SODIUM 139 136 - 145 mmol/L 11/13/2023 7:25 PM CDT [facility] POTASSIUM 3.7 3.5 - 5.1 mmol/L 11/13/2023 7:25 PM CDT [facility] CHLORIDE 105 98 - 107 mmol/L 11/13/2023 7:25 PM CDT [facility] CO2, VENOUS 24 22 - 30 mmol/L 11/13/2023 7:25 PM CDT [facility] ANION GAP 13.7 <18.0 mmol/L 11/13/2023 7:25 PM CDT [facility] GLUCOSE 188(H) 70 - 99 mg/dL 11/13/2023 7:25 PM CDT [facility] BUN 11 8 - 26 mg/dL 11/13/2023 7:25 PM CDT [facility] CREATININE, BLOOD 0.84 0.70 - 1.30 mg/dL 11/13/2023 7:25 PM CDT [facility] BUN/CREATININE RATIO 13 12 - 20 ratio 11/13/2023 7:25 PM CDT [facility] TOTAL PROTEIN 7.3 6.3 - 8.2 g/dL 11/13/2023 7:25 PM CDT [facility] ALBUMIN 3.9 3.5 - 5.0 g/dL 11/13/2023 7:25 PM CDT [facility] A/G RATIO 1.1 1.0 - 2.2 11/13/2023 7:25 PM CDT [facility] CALCIUM 9.4 8.7 - 10.5 mg/dL 11/13/2023 7:25 PM CDT [facility] T BILI 3.6(H) 0.2 - 1.2 mg/dL 11/13/2023 7:25 PM CDT [facility] SGOT (AST) 27 5 - 34 U/L 11/13/2023 7:25 PM CDT [facility] SGPT (ALT) 17 0 - 55 U/L 11/13/2023 7:25 PM CDT [facility] ALKALINE PHOSPHATASE 90 40 - 150 U/L 11/13/2023 7:25 PM CDT [facility] GFR, ESTIMATED >60 >=60 11/13/2023 7:25 PM CDT [facility] Comment: Creatinine Clearance is the preferred criteria for selecting drug dose adjustments in renally impaired patients. ??The GFR is provided as additional pertinent clinical information. GFR is reported in mL/min/1.73 sq m. Calculation based on the Chronic Kidney Disease Epidemiology Collaboration (CKD- EPI) equation refit without adjustment for race. GFR, EST. >60 >=60 024 7:25 PM CDT [facility] GFR, EST. NONAFRICAN >60 >=60 11/13/2023 7:25 PM CDT [facility] Blood Venipuncture / Unknown 11/13/2023 6:40 PM CDT 11/13/2023 7:00 PM CDT us Lul Junior DO CHEMISTRY ORDERABLES Fi nal Result [facility] [address] [place] [address] documented in this encounter Visit Diagnoses Diagnosis [...] documented as of this encounter Care Teams Engineering Officer Relationship Specialty Start Date End Date Braydon Pavon, [facility] [address] [place] [address] PCP - General Physician Core Composer Machine Tender 06/22/18 Vikram Mora MD [address] [phone] Consulting Physician Endocrinology 05/21/23 Riddhi Bello APRN, COFFEE ROASTER [address] [place] [address] Nurse Practitioner Advanced Practice Nurse 02/10/23 documented as of this encounter
--- OUTSIDE RECORDS SUMMARY | 2024-05-08 07:28 | XMS_ITS | Encounter Summary ---
Author Organization [facility] Address [address] [place] [address] Phone Care Team Providers Care Church Musician Name Role Phone Braydon Pavon Kunal NEAL Primary Care Provider [phone] Riddhi Bello APRN, PULP PRESS TENDER Unavailable Reason for Visit * Reason Comments Abdominal Pain Encounter Details Date Type Department Care Team (Late st Contact Info) Description 05/20/2023 10:31 AM BUNGY JUMP MASTER - 05/20/2023 3:42 PM BUNGY JUMP MASTER Emergency [facility] [address] [place] [address] Holly Sandy APRN, PULP PRESS TENDER [address] [place] [address] Cholelithiasis Discharge Disposition: Discharged to home or [...] on file Legal Sex Male 10:58 AM BUNGY JUMP MASTER Gender Identity Not on file Sexual Orientation Not on file documented as of this encounter Last Filed Vital Signs Vital Sign Reading Time Taken Comments Blood Pressure 109/69 05/20/2023 3:30 PM BUNGY JUMP MASTER Pulse 85 05/20/2023 3:30 PM BUNGY JUMP MASTER Temperature 36.7 ??C (98.1 ??F) 05/20/2023 10:[address] Respiratory Rate 14 05/20/2023 10:32 AM BUNGY JUMP MASTER Oxygen Saturation 98% 05/20/2023 3:30 PM BUNGY JUMP MASTER Inhaled Oxygen Concentration - - Weight 95.8 kg (211 lb 3.2 oz) 05/20/2023 10:32 AM BUNGY JUMP MASTER Height 170.2 cm (5' 7 ) 05/20/2023 10:32 AM BUNGY JUMP MASTER Body Mass Index 33.08 05/20/2023 10:32 AM BUNGY JUMP MASTER documented in this encounter Discharge Instructions * Discharge Instructions* Holly Sandy APRN, CNP - 05/20/2023 3:24 PM BUNGY JUMP MASTER Please follow-up with volcanology professor and GI specialist as soon as possible. Return to the ED immediately with worsening symptoms. Y JUMP MASTER * Attachments The following attachments cannot be sent through Care Everywhere. * Gastroesophageal Reflux Disease Adult Nwkk-us-Mzac (Malagasy) * Cirrhosis (Malagasy) * Esophageal Varices (Malagasy) documented in this encounter Medications at Time of Discharge albuterol 108 (90 Base) MCG/ACT Aerosol Solution every 4 hours as needed. 02/02/2023 ALPRAZolam (XANAX) 1 MG Tablet Take by mouth as needed. carvedilol (COREG) 3.125 MG Tablet Take 1 Tablet by mouth 2 times daily. 180 Tablet 3 02/17/2023 ergocalciferol (VITAMIN D) 49565 UNIT Capsule Take 50,000 Units by mouth. [...] Subcutaneous route. 11/07/2020 Insulin Pen Needle (Pen Hebron) 32G X 4 MM Misc Inject 3 [...] discharged per ambulatory mode with as responsible democrat. SL D/C'ed with Uriel cath intact. Y JUMP MASTER * Lelia Alicea RN - 05/20/2023 2:30 PM CST Patient's SpO2 noted to be in the mid 70s-80s on room air while sleeping; placed on 2L/NC. Reports he is to have a sleep study soon to officially diagnose his sleep apnea. Evelio Sandy APRN made aware. Patient reports relief from Fentanyl and denies nausea. Y JUMP MASTER * Lelia Alicea RN - 05/20/2023 2:06 PM CST Pt medicated per provider orders. Pt educated on intended effects and side effects of medication and verbalized understanding, able to provide teach back of education. Y JUMP MASTER * Lelia Alicea RN - 05/20/2023 1:23 PM CST Report received from BETHANY Adan. Y JUMP MASTER * Abigail Amaro RN - 05/20/2023 12:49 PM CST Pt ambulatory to restroom. Y JUMP MASTER * Danielle Duckworth RN - 05/20/2023 12:32 [...] at this time. Provider aware of event. Y JUMP MASTER * Antionette Brock RN - 05/20/2023 12:10 PM CST Pt medicated per provider orders. Pt educated on intended effects and side effects of medication and verbalized understanding, able to provide teach back of education. Call light in reach. Y JUMP MASTER * Abigail Amaro RN - 05/20/2023 11:07 AM CST Pt medicated per provider orders. Pt educated on intended effects and side effects of medication and verbalized understanding, able to provide teach back of education. Y JUMP MASTER * Holly Sandy APRN, PULP PRESS TENDER - 05/20/2023 11:06 AM CST Chief Complaint [...] 180 Tablet 3 ??? ergocalciferol (VITAMIN D) 62583 UNIT Capsule Take 50,000 Units by mouth. [...] Subcutaneous route. ??? Insulin Pen Needle (Pen Hebron) 32G X 4 MM Misc Inject 3 [...] SNARE, DIVERTICULOSIS; Surgeon: Ac Berger MD; Location: [facility]; Service: Gastroenterology ??? COLONOSCOPY W/ BIOPSY 2005 ??? EGD WITH BANDING ??? EGD WITH BANDING ??? TIPS PROCEDURE TIMES 2 ??? UPPER GASTROINTESTINAL ENDOSCOPY N/A 03/24/2023 Procedure: EGD-PORTAL HYPERTENSIVE GASTROPATHY, GRADE ONE ESOPHAGEAL VARCIES; Surgeon: Ac Berger MD; Location: [facility]; Service: Gastroenterology Social History Socioeconomic [...] Geremias Chamberlain M.D. AG: SHIELA Report ID: [id number] Reading Location: [place] [address] Labs Reviewed CMP (COMPREHENSIVE METABOLIC PANEL) - [...] Abnormality Status --------- ------ CBC with Auto Differential[[id number]] Abnormal Final result Please view results for these tests on the individual orders. EXTRA TUBES Narrative: The following orders were created for panel order Extra Tubes. Procedure Abnormality Status --------- ------ Blue Top Tube[[id number]] Final result Gold Top Tube[[id number]] Final result Please view results for these [...] findings. Patient was advised to follow-up with volcanology professor and GI specialist as soon as possible. Advised to return to the ED immediately with worsening symptoms. Advised he would benefit from tips Doppler. Attempted to order this through the ED but was notified by surveillance technician that it would not be a [...] Lukas Page MD at 05/22/2023 6:00 AM BUNGY JUMP MASTER Y JUMP MASTER Y JUMP MASTER * Danielle Duckworth RN - 05/20/2023 10:34 [...] history of diabetes, BLAND, and liver cirrhosis. Y JUMP MASTER documented in this encounter Plan of Treatment Not on file documented as of this encounter Procedures Procedure Name Priority Date/Time Associated Diagnosis Comments POCT GLUCOSE STAT 05/20/2023 12:52 PM BUNGY JUMP MASTER TROPONIN I, HIGH SENSITIVITY (HSTRP) STAT 05/20/2023 12:[address] ABDOMEN PELVIS W/O CONTRAST Stat with Interpretation 05/20/2023 11:30 AM BUNGY JUMP MASTER EKG 12 LEAD STAT 05/20/2023 11:01 AM BUNGY JUMP MASTER EXTRA TUBES STAT 05/20/2023 10:44 AM BUNGY JUMP MASTER HEMOGLOBIN A1C W/ ESTIMATED GLUCOSE STAT 05/20/2023 10:44 AM BUNGY JUMP MASTER TROPONIN I, HIGH SENSITIVITY (HSTRP) STAT 05/20/2023 10:44 AM BUNGY JUMP MASTER GOLD TOP TUBE STAT 05/20/2023 10:44 AM BUNGY JUMP MASTER BLUE TOP TUBE STAT 05/20/2023 10:44 AM BUNGY JUMP MASTER CBC WITH AUTO DIFFERENTIAL STAT 05/20/2023 10:44 AM BUNGY JUMP MASTER MAGNESIUM (MG) STAT 05/20/2023 10:44 AM BUNGY JUMP MASTER LIPASE STAT 05/20/2023 10:44 AM BUNGY JUMP MASTER CMP (COMPREHENSIVE METABOLIC PANEL) STAT 05/20/2023 10:44 AM BUNGY JUMP MASTER COMPLETE BLOOD COUNT (CBC) WITH DIFF STAT 05/20/2023 10:44 AM BUNGY JUMP MASTER TEST FOR ACETONE/KETONES STAT 05/20/2023 10:44 AM BUNGY JUMP MASTER URINALYSIS REFLEX IF INDICATED BY ABNORMAL RESULTS STAT 05/20/2023 10:40 AM BUNGY JUMP MASTER EKG SCAN 05/20/2023 12:00 AM BUNGY JUMP MASTER documented in this encounter Results * (ABNORMAL) POCT Glucose (05/20/2023 12:52 PM BUNGY JUMP MASTER) [facility] GLUCOSE,BEDSID E POCT 336(H) 70 - 99 mg/dL 05/20/2023 12:59 PM BUNGY JUMP MASTER [facility] Comment: Patient RN Performed HOLLY SANDY Blood 05/20/2023 12:5 2 PM BUNGY JUMP MASTER 05/20/2023 12:59 PM BUNGY JUMP MASTER us None Provider POINT OF CARE TESTING Final Resu lt Performing Organization Address City/[facility] [address]/ZIP Co de Phone Number [facility] [address] [place] [address] * TROPONIN I, HIGH SENSITIVITY (HSTRP) (05/20/2023 12:45 PM BUNGY JUMP MASTER) Only the most recent of2 resultswithin the time period is included. [facility] TROPONIN I, HIGH SENSITIVITY- [place] <3 <=35 ng/L 05/20/2023 1:33 PM BUNGY JUMP MASTER [facility] Comment: High-sensitivity troponin I results are reported in ng/L making the result appear to be 1,000 times higher than the contemporary troponin I value which is reported in ng/ml. Results from [place]. Blood Venipuncture / Unknown 05/20/2023 12:45 PM BUNGY JUMP MASTER 05/20/2023 1:01 PM BUNGY JUMP MASTER us Holly Sandy REAR LOAD TRUCK DRIVER, PULP PRESS TENDER CHEMISTRY ORDERABLES Final Result Performing Organization Address City/[facility] [address]/ZIP Co de Phone Number [facility] [address] [place] [address] * CT ABDOMEN PELVIS W/O CONTRAST (05/20/2023 11:30 AM BUNGY JUMP MASTER) Anatomical Region Laterality Modality Abdomen N/A Computed Tomogra phy 05/20/2023 11:4 9 AM BUNGY JUMP MASTER Impressions 05/20/2023 11:52 AM BUNGY JUMP MASTER IMPRESSION: ?? 1. ?? Subtle peripancreatic stranding. [...] attention on follow-up. Narrative 05/20/2023 11:52 AM BUNGY JUMP MASTER EXAM DESCRIPTION: ?? CT ABDOMEN PELVIS W/O [...] AM T: ??05/20/2023 11:49 AM Report ID: [id number] Reading Location: ??[id number] Procedure Note Geremias Chamberlain MD - 05/20/2023 [...] Geremias Chamberlain M.D. AG: SHIELA Report ID: [id number] Reading Location: [place] [address] IMPRESSION: 1. Subtle peripancreatic stranding. This could [...] * EKG 12 LEAD (05/20/2023 11:01 AM BUNGY JUMP MASTER) Ventricular Rate 87 BPM EXTERNAL EKG Atrial Rate 87 BPM EXTERNAL EKG P-R Interval 170 ms EXTERNAL EKG QRS Duration 82 ms EXTERNAL EKG Q-T Duration 370 ms EXTERNAL EKG QTC CALCULATION 445 ms EXTERNAL EKG P [place] 52 degrees EXTERNAL EKG R [place] 41 degrees EXTERNAL EKG T [place] 40 degrees EXTERNAL EKG 05/20/2023 11:0 1 AM BUNGY JUMP MASTER Impressions EXTERNAL EKG - 05/25/2023 8:57 PM BUNGY JUMP MASTER Normal sinus rhythm Normal ECG No previous ECGs available Confirmed by Amol Gunn ([id number]) on 05/25/2023 8:57:21 PM Narrative Procedure Note Amol Gunn MD PhD - 05/25/2023 IMPRESSION: Normal sinus rhythm Normal ECG No previous ECGs available Confirmed by Amol Gunn ([id number]) on 05/25/2023 8:57:21 PM Holly Sandy APRN, PULP PRESS TENDER IMG ECG ORDERABLES nal Result EXTERNAL EKG * (ABNORMAL) Hemoglobin A1C (05/20/2023 10:44 AM BUNGY JUMP MASTER) Pathologist [facility] HGB-A1C 11.6(H) 4.0 - 6.0 % 05/20/2023 12:30 PM BUNGY JUMP MASTER [facility] Est Average Glucose 286.2 mg/dL 05/20/2023 12:30 PM BUNGY JUMP MASTER [facility] Blood Venipuncture / Unknown 05/20/2023 10:44 AM BUNGY JUMP MASTER 05/20/2023 11:01 AM BUNGY JUMP MASTER Narrative [facility] - 05/20/2023 12:30 PM BUNGY JUMP MASTER HEMOGLOBIN A1C: DIABETIC PATIENTS: WELL-CONTROLLED: ?? 6.2 - 7.0 INTERMEDIATE WELL-CONTROLLED: ??7.0 - 9.0 POORLY-CONTROLLED: ??>9.0 us Holly Sandy REAR LOAD TRUCK DRIVER, PULP PRESS TENDER CHEMISTRY ORDERABLES Final Result [facility] [address] [place] [address] * Acetone/Ketones Qualitative-Blood (05/20/2023 10:44 AM BUNGY JUMP MASTER) ACETONE Negative Negative 05/20/2023 12:35 PM BUNGY JUMP MASTER [facility] Blood No Phlebotomy Charged / Unknown 05/20/2023 10:44 AM BUNGY JUMP MASTER 05/20/2023 11:03 AM BUNGY JUMP MASTER us Holly Sandy REAR LOAD TRUCK DRIVER, PULP PRESS TENDER CHEMISTRY ORDERABLES Final Result Performing Organization Address City/[facility] [address]/[facility] Co de Phone Number [facility] [address] [place] [address] * Magnesium (Mg) (05/20/2023 10:44 AM BUNGY JUMP MASTER) MAGNESIUM 1.8 1.6 - 2.6 mg/dL 05/20/2023 12:32 PM BUNGY JUMP MASTER [facility] Blood Venipuncture / Unknown 05/20/2023 10:44 AM BUNGY JUMP MASTER 05/20/2023 11:01 AM BUNGY JUMP MASTER us Holly Sandy REAR LOAD TRUCK DRIVER, PULP PRESS TENDER CHEMISTRY ORDERABLES Final Result Performing Organization Address City/[facility] [address]/ZIP Co de Phone Number [facility] [address] [place] [address] * Gold Top Tube (05/20/2023 10:44 AM BUNGY JUMP MASTER) Blood No Phlebotomy Charged / Unknown 05/20/2023 10:44 AM BUNGY JUMP MASTER 05/20/2023 11:03 AM BUNGY JUMP MASTER us Holly Sandy APRN, DOROTHY CHEMISTRY ORDERABLES Final Result Performing Organization Address [facility] Co de Phone Number [facility] [address] [place] [address] * Blue Top Tube (05/20/2023 10:44 AM BUNGY JUMP MASTER) Blood No Phlebotomy Charged / Unknown 05/20/2023 10:44 AM BUNGY JUMP MASTER 05/20/2023 11:03 AM BUNGY JUMP MASTER us Holly Sandy APRN, PULP PRESS TENDER HEMATOLOGY ORDERABLES Final Result Performing Organization Address [facility] de Phone Number [facility] [address] [place] [address] * (ABNORMAL) CBC with Auto Differential (05/20/2023 10:44 AM BUNGY JUMP MASTER) WBC 3.71(L) 4.00 - 12.00 10(3)/mcL 05/20/2023 11:44 AM BUNGY JUMP MASTER [facility] RBC 5.79 4.40 - 5.80 10(6)/mcL 05/20/2023 11:44 AM BUNGY JUMP MASTER [facility] HEMOGLOBIN (HGB) 14.0 13.0 - 16.5 g/dL 05/20/2023 11:44 AM BUNGY JUMP MASTER [facility] HEMATOCRIT (HCT) 43.4 38.0 - 50.0 % 05/20/2023 11:44 AM BUNGY JUMP MASTER [facility] MCV 75.0(L) 82.0 - 96.0 fL 05/20/2023 11:44 AM BUNGY JUMP MASTER [facility] MCH 24.2(L) 26.0 - 32.0 pg 05/20/2023 11:44 AM BUNGY JUMP MASTER [facility] MCHC 32.3 31.0 - 36.0 g/dL 05/20/2023 11:44 AM BUNGY JUMP MASTER [facility] PLATELET COUNT 98(L) 140 - 440 10(3)/mcL 05/20/2023 11:44 AM BUNGY JUMP MASTER [facility] RDW 16.8(H) 11.8 - 15.5 % 05/20/2023 11:44 AM BUNGY JUMP MASTER [facility] MPV 10.4 8.0 - 12.6 fL 05/20/2023 11:44 AM BUNGY JUMP MASTER [facility] NRBC PER 100 WBC 0 05/20/2023 11:44 AM BUNGY JUMP MASTER [facility] Blood Venipuncture / Unknown 05/20/2023 10:44 AM BUNGY JUMP MASTER 05/20/2023 11:01 AM BUNGY JUMP MASTER us Holly Sandy APRN, PULP PRESS TENDER HEMATOLOGY ORDERABLES Final Result Performing Organization Address City/[facility] [address]/ZIP Co de Phone Number [facility] [address] [place] [address] * Lipase (05/20/2023 10:44 AM BUNGY JUMP MASTER) LIPASE 44 8 - 78 U/L 05/20/2023 11:28 AM BUNGY JUMP MASTER [facility] Blood Venipuncture / Unknown 05/20/2023 10:44 AM BUNGY JUMP MASTER 05/20/2023 11:01 AM BUNGY JUMP MASTER us Holly Sandy REAR LOAD TRUCK DRIVER, PULP PRESS TENDER CHEMISTRY ORDERABLES Final Result [facility] [address] [place] [address] * (ABNORMAL) CMP (05/20/2023 10:44 AM BUNGY JUMP MASTER) SODIUM 129(L) 136 - 145 mmol/L 05/20/2023 11:33 AM BUNGY JUMP MASTER [facility] POTASSIUM 4.2 3.5 - 5.1 mmol/L 05/20/2023 11:33 AM [facility] CHLORIDE 98 98 - 107 mmol/L 05/20/2023 11:33 AM [facility] CO2, VENOUS 23 22 - 30 mmol/L 05/20/2023 11:33 AM [facility] ANION GAP 12.2 <18.0 mmol/L 05/20/2023 11:33 AM [facility] GLUCOSE 517(HH) 70 - 99 mg/dL 05/20/2023 11:33 AM [facility] BUN 13 8 - 26 mg/dL 05/20/2023 11:33 AM [facility] CREATININE, BLOOD 0.92 0.70 - 1.30 mg/dL 05/20/2023 11:33 AM [facility] BUN/CREATININE RATIO 14 12 - 20 ratio 05/20/2023 11:33 AM [facility] TOTAL PROTEIN 6.7 6.3 - 8.2 g/dL 05/20/2023 11:33 AM [facility] ALBUMIN 3.5 3.5 - 5.0 g/dL 05/20/2023 11:33 AM [facility] A/G RATIO 1.1 1.0 - 2.2 05/20/2023 11:33 AM [facility] CALCIUM 9.3 8.7 - 10.5 mg/dL 05/20/2023 11:33 AM [facility] T BILI 2.2(H) 0.2 - 1.2 mg/dL 05/20/2023 11:33 AM [facility] SGOT (AST) 26 5 - 34 U/L 05/20/2023 11:33 AM [facility] SGPT (ALT) 20 0 - 55 U/L 05/20/2023 11:33 AM [facility] ALKALINE PHOSPHATASE 89 40 - 150 U/L 05/20/2023 11:33 AM [facility] GFR, ESTIMATED >60 >=60 05/20/2023 11:33 AM [facility] Comment: Creatinine Clearance is the preferred criteria for selecting drug dose adjustments in renally impaired patients. ??The GFR is provided as additional pertinent clinical information. GFR is reported in mL/min/1.73 sq m. Calculation based on the Chronic Kidney Disease Epidemiology Collaboration (CKD- EPI) equation refit without adjustment for race. GFR, EST. >60 >=60 024 11:33 AM BUNGY JUMP MASTER [facility] GFR, EST. NONAFRICAN >60 >=60 05/20/2023 11:33 AM BUNGY JUMP MASTER [facility] Blood Venipuncture / Unknown 05/20/2023 10:44 AM BUNGY JUMP MASTER 05/20/2023 11:01 AM BUNGY JUMP MASTER Holly Sandy REAR LOAD TRUCK DRIVER, PULP PRESS TENDER CHEMISTRY ORDERABLES Final Result [facility] [address] [place] [address] * (ABNORMAL) Urinalysis w/ Reflex (05/20/2023 10:40 AM BUNGY JUMP MASTER) SPECIFIC GRAVITY 1.010 1.003 - 1.030 05/20/2023 11:44 AM BUNGY JUMP MASTER [facility] URINE PH 5.0 5.0 - 9.0 05/20/2023 11:44 AM [facility] WBC ESTERASE Negative Negative 05/20/2023 11:44 AM BUNGY JUMP MASTER [facility] NITRITE Negative Negative 05/20/2023 11:44 AM BUNGY JUMP MASTER [facility] PROTEIN, RANDOM URINE Negative Negative 05/20/2023 11:44 AM BUNGY JUMP MASTER [facility] URINE GLUCOSE, QUAL 1000 mg/dL(A) Negative 05/20/2023 11:44 AM [facility] URINE KETONES Negative Negative 05/20/2023 11:44 AM [facility] UROBILINOGEN Normal Normal mg/dL 05/20/2023 11:44 AM BUNGY JUMP MASTER [facility] URINE BLOOD Negative Negative kristan/ul 05/20/2023 11:44 AM BUNGY JUMP MASTER [facility] URINALYSIS COLOR Yellow 05/20/19 11:44 AM BUNGY JUMP MASTER [facility] URINALYSIS CLARITY Clear 05/20/2023 11:44 AM BUNGY JUMP MASTER [facility] Urine URINE SPECIMEN / Unknown Non-Phlebotomy Collection / Unknown 05/20/2023 10:40 AM BUNGY JUMP MASTER 05/20/2023 11:03 AM BUNGY JUMP MASTER us Holly Sandy REAR LOAD TRUCK DRIVER, PULP PRESS TENDER URINE ORDERABLES Anastasiya l Result [facility] [address] [place] [address] * EKG SCAN (05/20/2023 12:00 AM BUNGY JUMP MASTER) 05/20/2023 us Provider Scan IMG ECG ORDERABLES [...] at 1130 New Bag 05/20/2023 11:06 AM BUNGY JUMP MASTER 1,000 mL 999 mL/hr dextrose 50 % [...] Thu05/20/23 at 1400 Given 05/20/2023 2:05 PM BUNGY JUMP MASTER 75 mcg Glucagon Emergency injection KIT 1 [...] Saline after administration. Given 05/20/2023 12:08 PM BUNGY JUMP MASTER 9.5 Units metoclopramide (REGLAN) injection 10 mg 10 mg, Intravenous, ONCE, 1 dose, On Thu05/20/23 at 1400 Given 05/20/2023 2:05 PM BUNGY JUMP MASTER 10 mg morphine sulfate (PF) injection 4 mg 4 mg, Intravenous, ONCE, 1 dose, On Thu05/20/23 at 1130 Given 05/20/2023 11:06 AM BUNGY JUMP MASTER 4 mg ondansetron (ZOFRAN) injection 4 mg 4 mg, Intravenous, ONCE, 1 dose, On Thu05/20/23 at 1130 Given 05/20/2023 11:06 AM BUNGY JUMP MASTER 4 mg pantoprazole (PROTONIX) injection 40 mg 40 mg, Intravenous, ONCE, 1 dose, On Thu05/20/23 at 1400, Administer over 3 Minutes, Indications: Symptomatic Gastroesophageal Reflux DiseaseIndications:Symptomatic Gastroesophageal Reflux Disease Given 05/20/2023 2:05 PM BUNGY JUMP MASTER 40 mg documented in this encounter Active and Recently Administered Medications Times are shown in BUNGY JUMP MASTER. Scheduled Medication Order 05/18/2023 05/19/2023 05/20/2023 0.9 [...] sugar documented in this encounter Care Teams Church Musician Relationship Specialty Start Date End Date Barydon Pavon, [address] [place] [address] PCP - General Physician Diesel Lube Tech 06/22/18 Riddhi Bello APRN, PULP PRESS TENDER [address] [place] [address] Nurse Practitioner Advanced Practice Nurse 02/10/23 documented as of this encounter
--- OUTSIDE RECORDS SUMMARY | 2024-05-08 07:28 | XMS_ITS | Encounter Summary ---
Author Organization [employer] Care Team Providers Care Miner Operator Name Role Phone Braydon Pavon Primary Care Provider [phone] Vikram Mora MD Unavailable Riddhi Bello APRN, JAWBONE PULLER Unavailable Encounter Details Date Type Department Care [...] on file Legal Sex Male 10:58 AM DISEASE AND INSECT CONTROL BOSS Gender Identity Not on file Sexual Orientation Not on file documented as of this encounter Plan of Treatment Not on file documented as of this encounter Visit Diagnoses Not on filedocumented in this encounter Care Teams Miner Operator Relationship Specialty Start Date End Date Braydon Pavon PAC [address] [place] [id number] PCP - General Physician Specialist Employee Labor Relations 06/22/18 Vikram Mora MD [address] [id number] Consulting Physician Endocrinology 05/21/23 Riddhi Bello APRN, JAWBONE PULLER [address] [place] [address] Nurse Practitioner Advanced Practice Nurse 02/10/23 documented as of this encounter
--- OUTSIDE RECORDS SUMMARY | 2024-05-08 07:28 | XMS_ITS | Encounter Summary ---
Author Organization [facility] Address [address] [place] [address] Phone Care Team Providers Care Imcu Specialist Name Role Phone Braydon Pavon Primary Care Provider Riddhi Bello APRN, PAGE DESIGNER Unavailable Reason for Visit * Reason Onset Date Comments Results 03/03/2023 Encounter Details Date Type Department Care Team (Late st Contact Info) Description 03/03/2023 Telephone [facility] - Gastroenterology - [address] [place] [address] Riddhi Bello APRN, PAGE DESIGNER [address] [place] [address] Results Social History Tobacco Use Types Packs/Day Years Used Date Smoking Tobacco: Former Cigarettes Q uit: 2002 Smokeless Tobacco: Never Alcohol Use Standard Drinks/Week Comments Not Currently 0 (1 standard drink = 0.6 oz pur e alcohol) Sexually Active Control Partners Comments Yes Female Sex and Gender Information Value Date Recorded Sex Assigned at Not on file Legal Sex Male 10:58 AM BRIDGE REPAIRER Gender Identity Not on file Sexual Orientation Not on file COVID-19 Exposure Response Date Recorded In the last 10 days, have yo u been in contact with someone who was confirmed or suspected to have Coronavirus/COVID-19? No / Unsure 02/26/2023 8:15 AM CDT documented as of this encounter Miscellaneous Notes * Telephone Encounter - [place], Brianna A, RN - 03/03/2023 1:57 PM CDT Patient is aware and verbalizes understanding. Patient wanted to update provider that the pain clinic placed him on norco 7.5 mg po tid due to [id number] is too high for injections. They are working on getting his blood sugars down so he can go offthe norco and get injections. He stated the pain doctor knows patient has a hx of cirrhosis. Analisa Bello MANAGER OF EMPLOYEE RELATIONS updated. * Telephone Encounter - Brianna Sorenson [...] on filedocumented in this encounter Care Teams Imcu Specialist Relationship Specialty Start Date End Date Braydon Pavon PAC [address] [place] [id number] PCP - General Physician Costumed Character Entertainer 06/22/18 Riddhi Bello APRN, PAGE DESIGNER [address] [place] [address] Nurse Practitioner Advanced Practice Nurse 02/10/23 documented as of this encounter
--- OUTSIDE RECORDS SUMMARY | 2024-05-08 07:28 | XMS_ITS | Encounter Summary ---
Author Organization [facility] Address [address] [place] [address] Phone Care Team Providers Care Instructor Industrial Design Name Role Phone Janeth Pavon Kunal NEAL Primary Care Provider [phone] Riddhi Bello APRN, HYDROCHLORIC AREA SUPERVISOR Unavailable Reason for Visit * Auth/Cert (Routine) Specialty Diagnoses / Procedures Referred By Jordan casillas Referred To Contact Diagnoses ESOPHAGEAL VARICES, HISTORY OF COLON POLYPS Procedures EGD COLONOSCOPY Referral ID Status Reason Start Date Expiration Date Visits Re quested Visits Authorized [id number] 1 1 Encounter Details Date Type Department Care Team (Late st Contact Info) Description 03/24/2023 7:30 AM PRODUCTION ASSEMBLY SUPERVISOR - 03/24/2023 8:00 AM PRODUCTION ASSEMBLY SUPERVISOR [facility] Periop [address] [place] [address] Ac Berger MD [address] [address] EGD-PORTAL HYPERTENSIVE GASTROPATHY, GRADE ONE ESOPHAGEAL VARCIES Surgery Details Date/Time Status Location OR Service Patient Class Case Class Case Type Trauma Case? 03/24/2023 7:30 AM Posted [facility] GI LAB GI 01 Gastroenterology [facility] Ambulatory Surgery Electiv e/Sched uled Panel 1 [...] on file Legal Sex Male 10:58 AM PRODUCTION ASSEMBLY SUPERVISOR Gender Identity Not on file Sexual [...] Comments Blood Pressure 134/72 03/24/2023 6:48 AM PRODUCTION ASSEMBLY SUPERVISOR Pulse 94 03/24/2023 6:48 AM PRODUCTION ASSEMBLY SUPERVISOR Temperature 36 ??C (96.8 ??F) 03/24/2023 6:48 AM PRODUCTION ASSEMBLY SUPERVISOR Respiratory Rate 9 03/24/2023 6:48 AM PRODUCTION ASSEMBLY SUPERVISOR Oxygen Saturation 98% 03/24/2023 6:48 AM PRODUCTION ASSEMBLY SUPERVISOR Inhaled Oxygen Concentration - - Weight 97.5 kg (215 lb) 02/27/2023 3:04 PM CDT Height 172.7 cm (5' 8 ) 02/27/2023 3:04 PM CDT Body Mass Index 32.69 02/27/2023 3:04 PM CDT documented in this encounter Discharge Instructions * Discharge Instructions* Felicitas Florentino RN - 03/24/2023 8:11 AM PRODUCTION ASSEMBLY SUPERVISOR You had a colonoscopy today. Dr. Berger [...] WORK, UNLESS INSTRUCTED OTHERWISE. Call doctor's office ([phone]) or go to Emergency room for: Difficulty Breathing, Headache Or Visual Disturbances Persistent Dizziness Or Light-Headedness Persistent Nausea and Vomiting Temperature greater then 100.0 Significant abdominal pain, chest pain, or bleeding. Here at [facility] we strive to provide excellent [...] envelope is provided. Thank you for choosing [facility]. UCTION ASSEMBLY SUPERVISOR UCTION ASSEMBLY SUPERVISOR documented in this encounter Medications at Time of Discharge albuterol 108 (90 Base) MCG/ACT Aerosol Solution every 4 hours as needed. 02/02/2023 ALPRAZolam (XANAX) 1 MG Tablet Take by mouth as needed. carvedilol (COREG) 3.125 MG Tablet Take 1 Tablet by mouth 2 times daily. 180 Tablet 3 02/17/2023 ergocalciferol (VITAMIN D) 06592 UNIT Capsule Take 50,000 Units by mouth. [...] Subcutaneous route. 11/07/2020 Insulin Pen Needle (Pen [place]) 32G X 4 MM Misc Inject 3 [...] procedure. Ac Berger MD 03/24/2023 7:34 AM PRODUCTION ASSEMBLY SUPERVISOR UCTION ASSEMBLY SUPERVISOR documented in this encounter OR Notes * OR Surgeon - cA Berger MD - 03/24/2023 8:07 AM CST [...] Surgeon: Ac Berger MD, 03/24/2023, 8:07 AM PRODUCTION ASSEMBLY SUPERVISOR Primary Care Physician: JANETH PAVON, PAC UCTION ASSEMBLY SUPERVISOR * OR Surgeon - Ac Berger MD [...] Surgeon: Ac Berger MD, 03/24/2023, 7:41 AM PRODUCTION ASSEMBLY SUPERVISOR Primary Care Physician: JANETH PAVON, PAC UCTION ASSEMBLY SUPERVISOR documented in this encounter Miscellaneous Notes * [...] Transition of Care Outcome: Ongoing (see interventions/notes) UCTION ASSEMBLY SUPERVISOR * Interdisciplinary - Lyric Dudley RN - 02/27/2023 3:05 PM CDT [facility] GI TEACHING Patient Name: Camilo Curry : 1970 [facility]#: [id number] Person Educated Patient Ready to Learn Yes [...] for your procedure as instructed by the [facility] GI Lab. Go to Registration the morning [...] be allowed to accompany you to the [facility]. No children under the age of 16 will be allowed in the [facility] unless they are the patient. If the [...] to Teaching: Verbalizes Understanding Patient assessed for medical language specialist during the preop interview and appropriate interventions taken if applicable. documented in this encounter Plan of Treatment Not on file documented as of this encounter Procedures Procedure Name Priority Date/Time Associated Diagnosis Comments CBC WITH AUTO DIFFERENTIAL STAT 03/24/2023 9:01 AM PRODUCTION ASSEMBLY SUPERVISOR PROTIME (PT) (PROTHROMBIN TIME) STAT 03/24/2023 9:01 AM PRODUCTION ASSEMBLY SUPERVISOR CMP (COMPREHENSIVE METABOLIC PANEL) STAT 03/24/2023 9:01 AM PRODUCTION ASSEMBLY SUPERVISOR COMPLETE BLOOD COUNT (CBC) WITH DIFF STAT 03/24/2023 9:01 AM PRODUCTION ASSEMBLY SUPERVISOR PATHOLOGY SURGICAL Routine 03/24/2023 8: 03 AM PRODUCTION ASSEMBLY SUPERVISOR COLONOSCOPY 03/24/2023 7:31 AM PRODUCTION ASSEMBLY SUPERVISOR EGD-PORTAL HYPERTENSIVE GASTROPATHY, GRADE ONE ESOPHAGEAL VARCIESCOLONOSCOPY-C ECAL POLYP REMOVED BY HOT SNARE, DIVERTICULOSIS Special Needs DM, DOUBLE PREP - Dx varices/polyps EGD 03/24/2023 7:31 AM PRODUCTION ASSEMBLY SUPERVISOR EGD-PORTAL HYPERTENSIVE GASTROPATHY, GRADE ONE ESOPHAGEAL VARCIESCOLONOSCOPY-C ECAL POLYP REMOVED BY HOT SNARE, DIVERTICULOSIS Special Needs DM, DOUBLE PREP - Dx varices/polyps POCT GLUCOSE Routine 03/24/2023 6:41 AM PRODUCTION ASSEMBLY SUPERVISOR GI LAB IMAGING - EGD Routine 03/24/2023 6:23 AM PRODUCTION ASSEMBLY SUPERVISOR GI IMAGING - COLONOSCOPY Routine 03/24/2023 6:23 AM PRODUCTION ASSEMBLY SUPERVISOR documented in this encounter Results * (ABNORMAL) CBC with Auto Differential (03/24/2023 9:01 AM PRODUCTION ASSEMBLY SUPERVISOR) WBC 3.75(L) 4.00 - 12.00 10(3)/mcL 03/24/2023 9:33 AM PRODUCTION ASSEMBLY SUPERVISOR [facility] RBC 5.77 4.40 - 5.80 10(6)/mcL 03/24/2023 9:33 AM PRODUCTION ASSEMBLY SUPERVISOR [facility] HEMOGLOBIN (HGB) 13.2 13.0 - 16.5 g/dL 03/24/2023 9:33 AM PRODUCTION ASSEMBLY SUPERVISOR [facility] HEMATOCRIT (HCT) 42.5 38.0 - 50.0 % 03/24/2023 9:33 AM PRODUCTION ASSEMBLY SUPERVISOR [facility] MCV 73.7(L) 82.0 - 96.0 fL 03/24/2023 9:33 AM PRODUCTION ASSEMBLY SUPERVISOR [facility] MCH 22.9(L) 26.0 - 32.0 pg 03/24/2023 9:33 AM PRODUCTION ASSEMBLY SUPERVISOR [facility] MCHC 31.1 31.0 - 36.0 g/dL 03/24/2023 9:33 AM PRODUCTION ASSEMBLY SUPERVISOR [facility] PLATELET COUNT 90(L) 140 - 440 10(3)/mcL 03/24/2023 9:33 AM PRODUCTION ASSEMBLY SUPERVISOR [facility] RDW 17.3(H) 11.8 - 15.5 % 03/24/2023 9:33 AM PRODUCTION ASSEMBLY SUPERVISOR [facility] MPV 10.4 8.0 - 12.6 fL 03/24/2023 9:33 AM PRODUCTION ASSEMBLY SUPERVISOR [facility] NEUTROPHILS 70.2(H) 40.0 - 68.0 % 03/24/2023 9:33 AM PRODUCTION ASSEMBLY SUPERVISOR [facility] LYMPHOCYTES 16.8(L) 19.0 - 49.0 % 03/24/2023 9:33 AM PRODUCTION ASSEMBLY SUPERVISOR [facility] MONOCYTES 8.0 3.0 - 13.0 % 03/24/2023 9:33 AM PRODUCTION ASSEMBLY SUPERVISOR [facility] EOSINOPHILS 3.7 0.0 - 8.0 % 03/24/2023 9:33 AM PRODUCTION ASSEMBLY SUPERVISOR [facility] BASOPHILS 1.3(H) 0.0 - 1.0 % 03/24/2023 9:33 AM [facility] ABSOLUTE NEUTROPHILS 2.63 1.40 - 5.30 10(3)/[facility] 03/24/2023 9:33 AM PRODUCTION ASSEMBLY SUPERVISOR [facility] ABSOLUTE LYMPHOCYTES 0.63(L) 0.90 - 3.30 10(3)/[facility] 03/24/2023 9:33 AM [facility] ABSOLUTE MONOCYTES 0.30 0.10 - 0.90 10(3)/[facility] 03/24/2023 9:33 AM [facility] ABSOLUTE EOSINOPHIL 0.14 0.00 - 0.50 10(3)/[facility] 03/24/2023 9:33 AM [facility] ABSOLUTE BASOPHILS 0.05 0.00 - 0.10 10(3)/[facility] 03/24/2023 9:33 AM [facility] NRBC PER 100 WBC 0 03/24/20 9:33 AM [facility] RESULTS ARE CONSISTENT WITH PERIPHERAL SMEAR REVIEW Yes 03/24/2023 9:33 AM [facility] Blood Venipuncture / Unknown 03/24/2023 9:01 AM PRODUCTION ASSEMBLY SUPERVISOR 03/24/2023 9:05 AM PRODUCTION ASSEMBLY SUPERVISOR Narrative [facility] - 03/24/2023 9:33 AM PRODUCTION ASSEMBLY SUPERVISOR microcytes us Ac Berger MD HEMATOLOGY ORDERABLES Final Resu lt [facility] [address] [place] [address] * (ABNORMAL) PROTIME (PT) (PROTHROMBIN TIME) (03/24/2023 9:01 AM PRODUCTION ASSEMBLY SUPERVISOR) PROTIME-PATIENT 15.4(H) 11.6 - 14.8 sec 03/24/2023 9:20 AM PRODUCTION ASSEMBLY SUPERVISOR [facility] INR 1.2 0.9 - 1.2 03/24/2023 9:20 AM [facility] Comment: Therapeutic Ranges INR = 2.0-3.0: Venous thromb, atrial fib, pul embolism, tissue heart valve, ami. INR = 2.5-3.5: Mechanical heart valve Critical value for INR is >/= 4.5 Blood Venipuncture / Unknown 03/24/2023 9:01 AM PRODUCTION ASSEMBLY SUPERVISOR 03/24/2023 9:05 AM PRODUCTION ASSEMBLY SUPERVISOR us Ac Berger MD HEMATOLOGY ORDERABLES Final Resu lt [facility] [address] [place] [address] * (ABNORMAL) CMP (Comprehensive Metabolic Panel) (03/24/2023 9:01 AM PRODUCTION ASSEMBLY SUPERVISOR) [facility] SODIUM 137 136 - 145 mmol/L 03/24/2023 9:29 AM [facility] POTASSIUM 4.1 3.5 - 5.1 mmol/L 03/24/2023 9:29 AM PRODUCTION ASSEMBLY SUPERVISOR [facility] CHLORIDE 104 98 - 107 mmol/L 03/24/2023 9:29 AM [facility] CO2, VENOUS 24 22 - 30 mmol/L 03/24/2023 9:29 AM [facility] ANION GAP 13.1 <18.0 mmol/L 03/24/2023 9:29 AM [facility] GLUCOSE 273(H) 70 - 99 mg/dL 03/24/2023 9:29 AM [facility] BUN 9 8 - 26 mg/dL 03/24/2023 9:29 AM [facility] CREATININE, BLOOD 0.79 0.70 - 1.30 mg/dL 03/24/2023 9:29 AM [facility] BUN/CREATININE RATIO 11(L) 12 - 20 ratio 03/24/2023 9:29 AM [facility] TOTAL PROTEIN 6.5 6.3 - 8.2 g/dL 03/24/2023 9:29 AM [facility] ALBUMIN 3.6 3.5 - 5.0 g/dL 03/24/2023 9:29 AM [facility] A/G RATIO 1.2 1.0 - 2.2 03/24/2023 9:29 AM [facility] CALCIUM 8.9 8.7 - 10.5 mg/dL 03/24/2023 9:29 AM [facility] T BILI 1.9(H) 0.2 - 1.2 mg/dL 03/24/2023 9:29 AM [facility] SGOT (AST) 26 5 - 34 U/L 03/24/2023 9:29 AM [facility] SGPT (ALT) 20 0 - 55 U/L 03/24/2023 9:29 AM [facility] ALKALINE PHOSPHATASE 90 40 - 150 U/L 03/24/2023 9:29 AM [facility] GFR, ESTIMATED >60 >=60 03/24/2023 9:29 AM [facility] Comment: Creatinine Clearance is the preferred criteria for selecting drug dose adjustments in renally impaired patients. ??The GFR is provided as additional pertinent clinical information. GFR is reported in mL/min/1.73 sq m. Calculation based on the Chronic Kidney Disease Epidemiology Collaboration (CKD- EPI) equation refit without adjustment for race. GFR, EST. >60 >=60 023 9:29 AM [facility] GFR, EST. NONAFRICAN >60 >=60 03/24/2023 9:29 AM [facility] Blood Venipuncture / Unknown 03/24/2023 9:01 AM PRODUCTION ASSEMBLY SUPERVISOR 03/24/2023 9:05 AM PRODUCTION ASSEMBLY SUPERVISOR us Ac Berger MD CHEMISTRY ORDERABLES Final Resul t [facility] [address] [facility] [place] [address] * Pathology Surgical (03/24/2023 8:03 AM PRODUCTION ASSEMBLY SUPERVISOR) Case Report Surgical Pathology Report ? Case: [id number] ? Authorizing Provider: ??Ac Berger MD ?Collected: ? 03/24/2023 08:03 AM ? Ordering Location: ? [facility] ? Received: ?03/24/2023 09:32 AM ? [facility] ? Lab Main ? Pathologist: ? Angeles Ward MD PhD ? Specimen: ?Colon, CECAL POLYP ? 03/25/2023 8:20 AM [facility] FINAL DIAGNOSIS Cecal polyp, polypectomy: - Tubular adenoma 03/25/2023 8:20 AM [facility] Pre-Operative Diagnosis Esophageal varices, history of colon polyps 03/25/2023 8:20 AM [facility] Gross Description A. CECAL POLYP [...] 13 hours, 43 minutes. 03/25/2023 8:20 AM [facility] Microscopic Description Microscopic examination was performed which supports the final diagnosis. All control tissues stained appropriately. 03/25/2023 8:20 AM [facility] Tissue COLON STRUCTURE / Unknown 03/24/2023 8:03 AM PRODUCTION ASSEMBLY SUPERVISOR 03/24/2023 9:32 AM PRODUCTION ASSEMBLY SUPERVISOR us Ac Berger MD PATHOLOGY/CYTOLOGY ORDERABLES Fi nal Result [facility] [address] [place] [address] * (ABNORMAL) POCT Glucose (03/24/2023 6:41 AM PRODUCTION ASSEMBLY SUPERVISOR) GLUCOSE,BEDSID E POCT 254(H) 70 - 99 mg/dL 03/24/2023 6:47 AM PRODUCTION ASSEMBLY SUPERVISOR [facility] Comment:Patient RN Performed Blood 03/24/2023 6:41 AM PRODUCTION ASSEMBLY SUPERVISOR 03/24/2023 6:47 AM PRODUCTION ASSEMBLY SUPERVISOR us None Provider POINT OF CARE TESTING Final Resu lt [facility] [address] [place] [address] * GI LAB IMAGING - EGD (03/24/2023 6:23 AM PRODUCTION ASSEMBLY SUPERVISOR) us Ac PATEL DIAGNOSTIC ORDERABLES Final Result * GI IMAGING - COLONOSCOPY (03/24/2023 6:23 AM PRODUCTION ASSEMBLY SUPERVISOR) us Ac PATEL DIAGNOSTIC ORDERABLES Final Result [...] PRE-OP (SURGERY) New Bag 03/24/2023 7:28 AM PRODUCTION ASSEMBLY SUPERVISOR 20 mL/hr 20 mL/hr ondansetron (ZOFRAN) injection 4 mg 4 mg, Intravenous, ONCE PRN, 1 dose, Starting on Thu03/24/23 at 0623, Until Thu03/24/23 at 1108, Nausea - 1st line, PRE-OP (SURGERY) documented in this encounter Active and Recently Administered Medications Times are shown in PRODUCTION ASSEMBLY SUPERVISOR. Continuous Medication Order 03/22/2023 03/23/2023 03/24/2023 lactated ringers infusion at 20 mL/hr, Intravenous, CONTINUOUS, Starting on Thu03/24/23 at 0700, Until Thu03/24/23 at 1108, PRE-OP (SURGERY) 0728 (New Bag - Prov ider: Karina Moreno, RN)0734 (Continued by Anesthesia - Provider: Raffaele Chance APRN, BRANCH SERVICE REPRESENTATIVE)0836 (Stopped - Provider: Felicitas Florentino, BETHANY) PRN Medication Order 03/22/2023 03/23/2023 03/24/2023 ondansetron (ZOFRAN) injection 4 mg 4 mg, Intravenous, ONCE PRN, 1 dose, Starting on Thu03/24/23 at 0623, Until Thu03/24/23 at 1108, Nausea - 1st line, PRE-OP (SURGERY) documented in this encounter Care Teams Instructor Industrial Design Relationship Specialty Start Date End Date Janeth Pavon, [facility] [address] [place] [address] PCP - General Physician Supervisor Purification 06/22/18 Riddhi Bello APRN, HYDROCHLORIC AREA SUPERVISOR [address] [place] [address] Nurse Practitioner Advanced Practice Nurse 02/10/23 documented as of this encounter
--- OUTSIDE RECORDS SUMMARY | 2024-05-08 07:28 | XMS_ITS | Encounter Summary ---
Author Organization [facility] Care Team Providers Care Ship'S Electronic Warfare Officer Name Role Phone Braydon Pavon Primary Care Provider [phone] Vikram Mora MD Unavailable Riddhi Bello APRN, BEAN SPROUT LABORER Unavailable Encounter Details Date Type Department Care [...] on file Legal Sex Male 10:58 AM FEDERAL MEDIATOR Gender Identity Not on file Sexual Orientation Not on file documented as of this encounter Plan of Treatment Not on file documented as of this encounter Visit Diagnoses Not on filedocumented in this encounter Care Teams Ship'S Electronic Warfare Officer Relationship Specialty Start Date End Date Braydon Pavon PAC [address] [place] [address] PCP - General Physician Carbide Die Maker 06/22/18 Vikram Mora MD [address] [address] Consulting Physician Endocrinology 05/21/23 Riddhi Bello APRN, BEAN SPROUT LABORER [address] [place] [address] Nurse Practitioner Advanced Practice Nurse 02/10/23 documented as of this encounter
--- OUTSIDE RECORDS SUMMARY | 2024-05-08 07:28 | XMS_ITS | Encounter Summary ---
Author Organization [facility] Address [address] [place] [address] Phone Care Team Providers Care Oil And Gas Principal Name Role Phone Braydon Pavon Kunal NEAL Primary Care Provider [phone] Riddhi Bello APRN, CASH APPLICATIONS SPECIALIST Unavailable Reason for Visit * Auth/Cert (Routine) Specialty Diagnoses / Procedures Referred By Jordan casillas Referred To Contact Diagnoses ESOPHAGEAL VARICES, HISTORY OF COLON POLYPS Procedures EGD COLONOSCOPY Referral ID Status Reason Start Date Expiration Date Visits Re quested Visits Authorized [id number] 1 1 Encounter Details Date Type Department Care Team (Late st Contact Info) Description 03/24/2023 6:25 AM CORE FEEDER Ancillary Procedure [facility] Main [address] [place] [address] Ac Berger MD 2 [facility] [address] [place] [address] Provider, Anesthesiologist Social History Tobacco Use Types Packs/Day Years Used Date Smoking Tobacco: Former Cigarettes Q uit: 2002 Smokeless Tobacco: Never Alcohol Use Standard Drinks/Week Comments Not Currently 0 (1 standard drink = 0.6 oz pur e alcohol) Sexually Active Control Partners Comments Yes Female Sex and Gender Information Value Date Recorded Sex Assigned at Not on file Legal Sex Male 10:58 AM CORE FEEDER Gender Identity Not on file Sexual [...] IMAGING - COLONOSCOPY Routine 03/24/2023 6:23 AM CORE FEEDER documented in this encounter Results * GI IMAGING - COLONOSCOPY (03/24/2023 6:23 AM CORE FEEDER) us Ac Berger MD IMG DIAGNOSTIC ORDERABLES Final Result documented in this encounter Visit Diagnoses Not on filedocumented in this encounter Care Teams Oil And Gas Principal Relationship Specialty Start Date End Date Braydon Pavon PAC [address] [place] [address] PCP - General Physician Sling Operator 06/22/18 Riddhi Bello APRN, CASH APPLICATIONS SPECIALIST [address] [place] [address] Nurse Practitioner Advanced Practice Nurse 02/10/23 documented as of this encounter
--- OUTSIDE RECORDS SUMMARY | 2024-05-08 07:28 | XMS_ITS | Encounter Summary ---
Author Organization [facility] Address [address] [place] [address] Phone Care Team Providers Care Housecalls Nurse Name Role Phone BebeabBraydon Primary Care Provider [phone] Riddhi Bello APRN, FILER METAL PATTERNS Unavailable Reason for Visit * Reason Onset Date Comments Referral 05/12/2023 Encounter Details Date Type Department Care Team (Late st Contact Info) Description 05/12/2023 Telephone [facility] - Gastroenterology - [address] [place] [address] Riddhi Bello APRN, FILER METAL PATTERNS [address] [place] [address] Referral Social History Tobacco Use Types Packs/Day Years Used Date Smoking Tobacco: Former Cigarettes Q uit: 2002 Smokeless Tobacco: Never Alcohol Use Standard Drinks/Week Comments Not Currently 0 (1 standard drink = 0.6 oz pur e alcohol) Sexually Active Control Partners Comments Yes Female Sex and Gender Information Value Date Recorded Sex Assigned at Not on file Legal Sex Male 10:58 AM MACHINE PROGRAMMER Gender Identity Not on file Sexual Orientation Not on file documented as of this encounter Miscellaneous Notes * Telephone Encounter - Brianna Sorenson RN - 05/12/2023 4:15 PM MACHINE PROGRAMMER Patient called office and reported that he called the nephrology office at [place] and they said thereferral got denied due to patient should see urology. If his creatnine was elevated he could see nephrology. Patient has an appt on 05/18/2023 with provider. Please advise. INE PROGRAMMER documented in this encounter Plan of Treatment Not on file documented as of this encounter Visit Diagnoses Not on filedocumented in this encounter Care Teams Housecalls Nurse Relationship Specialty Start Date End Date Braydon Pavon PAC [address] [place] [address] PCP - General Physician Electrical Technology Instructor 06/22/18 Riddhi Bello APRN, FILER METAL PATTERNS [address] [place] [address] Nurse Practitioner Advanced Practice Nurse 02/10/23 documented as of this encounter
--- OUTSIDE RECORDS SUMMARY | 2024-05-08 07:28 | XMS_ITS | Encounter Summary ---
Author Organization [facility] Address [address] [place] [address] Phone Care Team Providers Care Aerodynamics Professor Name Role Phone BebeabBraydon Primary Care Provider Riddhi Bello APRN, APPRENTICE CARPENTER Unavailable Reason for Visit * Reason Onset Date Comments Appointment 05/20/2023 Encounter Details Date Type Department Care Team (Late st Contact Info) Description 05/20/2023 Telephone [facility] - Gastroenterology - [address] [place] [address] Riddhi Bello APRN, APPRENTICE CARPENTER [address] [place] [address] Appointment Social History Tobacco Use Types Packs/Day Years Used Date Smoking Tobacco: Former Cigarettes Q uit: 2002 Smokeless Tobacco: Never Alcohol Use Standard Drinks/Week Comments Not Currently 0 (1 standard drink = 0.6 oz pur e alcohol) Sexually Active Control Partners Comments Yes Female Sex and Gender Information Value Date Recorded Sex Assigned at Not on file Legal Sex Male 10:58 AM GLASS WORKER Gender Identity Not on file Sexual Orientation Not on file documented as of this encounter Miscellaneous Notes * Telephone Encounter - Brianna Sorenson RN - 05/20/2023 9:01 AM GLASS WORKER Spoke with patient. appt cancelled appt today 05/20/2023 due to provider is out of office. Offered to reschedule patient. He declined due to he reports he is going to the ER for abdominal pain that has been getting worse. Advised patient to call after seen in ER and appt can be r/s. Patient verbalized understanding. S WORKER documented in this encounter Plan of Treatment Not on file documented as of this encounter Visit Diagnoses Not on filedocumented in this encounter Care Teams Aerodynamics Professor Relationship Specialty Start Date End Date Braydon Pavon PAC [address] [place] [address] PCP - General Physician Culinary Manager 06/22/18 Riddhi Bello APRN, APPRENTICE CARPENTER [address] [place] [address] Nurse Practitioner Advanced Practice Nurse 02/10/23 documented as of this encounter
--- OUTSIDE RECORDS SUMMARY | 2024-05-08 07:28 | XMS_ITS | Encounter Summary ---
Author Organization [facility] Address [address] [place] [address] Phone Care Team Providers Care Bank Representative Name Role Phone BebeabBraydon Primary Care Provider [phone] Vikram Mora MD Unavailable Riddhi Bello APRN, DOROTHY Unavailable Reason for Referral * Radiology Services (Routine) - Closed Specialty Diagnoses / Procedures Referred By Jordan casillas Referred To Contact Radiology Diagnoses Pain of upper abdomen Nausea and vomiting, unspecified vomiting type Procedures NM HEPATOBILIARY WITH PHARM Riddhi Bello APRN, MEDICAL EQUIPMENT REPAIRER [address] [place] [address] Phone: tel: fax: Referral ID Status Reason Start Date Expiration Date Visits Re quested Visits Authorized [id number] Closed 05/29/2023 1 1 ATHERAPIST Reason for Visit * Radiology Services (Routine) - Closed Specialty Diagnoses / Procedures Referred By Contwinnie casillas Referred To Contact Radiology Diagnoses Pain of upper abdomen Nausea and vomiting, unspecified vomiting type Procedures NM HEPATOBILIARY WITH PHARM Riddhi Bello APRN, MEDICAL EQUIPMENT REPAIRER [address] [place] [address] Phone: tel: fax: Referral ID Status Reason Start Date Expiration Date Visits Re quested Visits Authorized [id number] Closed 05/29/2023 1 1 Encounter Details Date Type Department Care Team (Late st Contact Info) Description 06/11/2023 8:52 AM AROMATHERAPIST - 06/11/2023 11:59 PM AROMATHERAPIST Hospital Encounter [facility] Nuclear Medicine [address] [place] [address] Riddhi Bello APRN, MEDICAL EQUIPMENT REPAIRER [address] [place] [address] Discharge Disposition: Discharged to home or Selfcare [...] on file Legal Sex Male 10:58 AM AROMATHERAPIST Gender Identity Not on file Sexual Orientation Not on file documented as of this encounter Last Filed Vital Signs Vital Sign Reading Time Taken Comments Blood Pressure - - Pulse - - Temperature - - Respiratory Rate - - Oxygen Saturation - - Inhaled Oxygen Concentration - - Weight 97.1 kg (214 lb) 06/11/2023 8:52 AM AROMATHERAPIST Height 170.2 cm (5' 7 ) 06/11/2023 8:52 AM AROMATHERAPIST Body Mass Index 33.52 06/11/2023 8:52 AM AROMATHERAPIST documented in this encounter Medications at Time of Discharge albuterol 108 (90 Base) MCG/ACT Aerosol Solution every 4 hours as needed. 02/02/2023 ALPRAZolam (XANAX) 1 MG Tablet Take by mouth as needed. carvedilol (COREG) 3.125 MG Tablet Take 1 Tablet by mouth 2 times daily. 180 Tablet 3 02/17/2023 Continuous Blood Gluc Laserist (Dexcom G7 Laserist) Device Check blood glucose before each meal and at bedtime 1 Each 06/01/2023 ergocalciferol (VITAMIN D) 01146 UNIT Capsule Take 50,000 Units by mouth. [...] Subcutaneous route. 11/07/2020 Insulin Pen Needle (Pen [place]) 32G X 4 MM Misc Inject 3 [...] HEPATOBILIARY WITH PHARM Routine 06/11/2023 10:42 AM AROMATHERAPIST Pain of upper abdomen Nausea and vomiting, unspecified vomiting type documented in this encounter Results * NM HEPATOBILIARY WITH PHARM (06/11/2023 10:42 AM AROMATHERAPIST) Anatomical Region Laterality Modality Abdomen N/A Nuclear Medicine 06/11/2023 11:4 5 AM AROMATHERAPIST Impressions 06/11/2023 11:47 AM AROMATHERAPIST IMPRESSION: ?? No scintigraphic evidence of common bile or cystic duct obstruction. Normal contractile response of the gallbladder to fatty meal stimulation. Narrative 06/11/2023 11:47 AM AROMATHERAPIST EXAM DESCRIPTION: ?? NM HEPATOBILIARY WITH PHARM [...] AM T: ??06/11/2023 11:45 AM Report ID: [id number] Reading Location: ??[id number] Procedure Note Rajeev Villalobos MD - 06/11/2023 [...] Rajeev Villalobos M.D. LB: DONNA Report ID: [id number] Reading Location: [id number] IMPRESSION: No scintigraphic evidence of common bile [...] 06/11/23 at 0930 Given 06/11/2023 8:49 AM AROMATHERAPIST 1 Dose documented in this encounter Care Teams Bank Representative Relationship Specialty Start Date End Date Braydon Pavno PAC [address] [place] [address] PCP - General Physician Literacy Coordinator 06/22/18 Vikram Mora MD [address] [address] Consulting Physician Endocrinology 05/21/23 Riddhi Bello APRN, MEDICAL EQUIPMENT REPAIRER [address] [place] [address] Nurse Practitioner Advanced Practice Nurse 02/10/23 documented as of this encounter
--- OUTSIDE RECORDS SUMMARY | 2024-05-08 07:28 | XMS_ITS | Encounter Summary ---
Author Organization [facility] Address [address] [place] [address] Phone Care Team Providers Care Mandarin Tutor Name Role Phone Braydon Pavon PAC Primary Care Provider [phone] Riddhi Bello APRN, TAVERN CAR ATTENDANT Unavailable Reason for Visit * Auth/Cert (Routine) Specialty Diagnoses / Procedures Referred By Jordan casillas Referred To Contact Diagnoses ESOPHAGEAL VARICES, HISTORY OF COLON POLYPS Procedures EGD COLONOSCOPY Referral ID Status Reason Start Date Expiration Date Visits Re quested Visits Authorized [id number] 1 1 Encounter Details Date Type Department Care Team (Late st Contact Info) Description 03/24/2023 7:34 AM REAL ESTATE LISTING CONSULTANT Anesthesia Event [facility] Periop [address] [place] [address] Raffaele Chance APRN, BARN WORKER [address] [place] [address] Anesthesia Record Procedure Summary Procedure Name Responsible Anesthesiologist Anesthesia Start Time Anesthesia Stop Time EGD-PORTAL HYPERTENSIVE GASTROPATHY, GRADE ONE ESOPHAGEAL VARCIES Raffaele Chance APRN, BARN WORKER 03/24/23 0734 03/24/23 0807 Events Date [...] on file Legal Sex Male 10:58 AM REAL ESTATE LISTING CONSULTANT Gender Identity Not on file Sexual Orientation Not on file COVID-19 Exposure Response Date Recorded In the last 10 days, have yo u been in contact with someone who was confirmed or suspected to have Coronavirus/COVID-19? No / Unsure 02/26/2023 8:15 AM CDT documented as of this encounter OR Notes * Anesthesia Postprocedure Evaluation - Raffaele Chance APRN, BARN WORKER - 03/24/2023 8:14 AM CST Patient: Camilo Curry Procedure Summary Date: 03/24/23 Room / Location: [facility] / [facility] Anesthesia Start: 733 [...] Airway patency: patent Nausea and Vomiting: none ESTATE LISTING CONSULTANT * Anesthesia Preprocedure Evaluation - Raffaele Chance APRN, CRNA - 03/24/2023 7:17 AM CST Anesthesia Evaluation Procedure Information Date/Time: 03/24/23729 Procedures: EGD COLONOSCOPY Location: [facility] / [facility] Surgeons: Ac Berger [...] 180 Tablet, Rfl: 3 ergocalciferol (VITAMIN D) 25840 UNIT Capsule, Take 50,000 Units by mouth. [...] Disp: , Rfl: Insulin Pen Needle (Pen [place]) 32G X 4 MM Misc, Inject 3 [...] risks discussed with Patient. Plan discussed with BARN WORKER and surgeon. ESTATE LISTING CONSULTANT documented in this encounter Plan of [...] at 0808 Rate Change 03/24/2023 7:56 AM REAL ESTATE LISTING CONSULTANT 140 mcg/kg/min 81.9 mL/hr New Bag 03/24/2023 7:36 AM REAL ESTATE LISTING CONSULTANT 150 mcg/kg/min 87.75 mL/ hr documented in this encounter Care Teams Mandarin Tutor Relationship Specialty Start Date End Date Braydon Pavon PAC [address] [place] [address] PCP - General Physician Box Truck Washer 06/22/18 Riddhi Bello APRN, TAVERN CAR ATTENDANT [address] [place] [address] Nurse Practitioner Advanced Practice Nurse 02/10/23 documented as of this encounter
--- OUTSIDE RECORDS SUMMARY | 2024-05-08 07:28 | XMS_ITS | Encounter Summary ---
Author Organization [facility] Address [address] [place] [address] Phone Care Team Providers Care Technician Automated Equipment Name Role Phone Librado Braydon Kunal NEAL Primary Care Provider [phone] Riddhi Bello APRN, RISK CONTROL REPRESENTATIVE Unavailable Reason for Referral * Medical Care (Less Than 1 Week) - Closed Specialty Diagnoses / Procedures Referred By Contwinnie t Referred To Contact Nephrology Diagnoses Renal lesion Procedures OFFICE/OP NEW LVL 3 LOW MDM/30-44 MIN OFFICE/OP EST LVL 3 LOW MDM/20-29 MIN Riddhi Bello APRN, RISK CONTROL REPRESENTATIVE [address] [place] [address] Phone: tel: fax: EXTERNAL LOCATION NOT ON FILE Referral ID Status Reason Start Date Expiration Date Visits Re quested Visits Authorized [id number] Closed 03/23/2023 1 11 Scheduling Instructions Camilo is being referred to nephrology or other specialist in patient's insurance network for kidney lesion on recent ultrasound doppler of TIPPS at [facility]. See below for Camilo's current medications, [...] 180 Tablet, Rfl: 3 ergocalciferol (VITAMIN D) 28378 UNIT Capsule, Take 50,000 Units by mouth. [...] Disp: , Rfl: Insulin Pen Needle (Pen [place]) 32G X 4 MM Misc, Inject 3 [...] Gallstones Biliary colic Hepatic encephalopathy (HCC) Hypertension HANDLE ASSEMBLER Encounter Details Date Type Department Care Team (Late st Contact Info) Description 03/17/2023 Telephone [facility] - Gastroenterology - [address] [place] [address] Riddhi Bello APRN, DOROTHY [address] [place] [address] Social History Tobacco Use Types Packs/Day Years Used Date Smoking Tobacco: Former Cigarettes Q uit: 2002 Smokeless Tobacco: Never Alcohol Use Standard Drinks/Week Comments Not Currently 0 (1 standard drink = 0.6 oz pur e alcohol) Sexually Active Control Partners Comments Yes Female Sex and Gender Information Value Date Recorded Sex Assigned at Not on file Legal Sex Male 10:58 AM MOP HANDLE ASSEMBLER Gender Identity Not on file Sexual Orientation [...] on: 03/23/2023 03:32 PM Modules accepted: Orders HANDLE ASSEMBLER * Telephone Encounter - Blake Sorenson RN - 03/23/2023 3:21 PM MOP HANDLE ASSEMBLER Reviewed message with patient. Patient states that it was every 3 months they checked the TIPPS doppler. Recall placed. Patient is agreeable to seeing fare enforcement officer. He would like to be seen at [facility] or [facility] if [facility] doesn't take his insurance. External nephrology referral placed. HANDLE ASSEMBLER HANDLE ASSEMBLER * Addendum Note - Blake Sorenson RN - 03/23/2023 3:10 PM CSTAddended by: BLAKE SORENSON on: 03/23/2023 03:10 PM Modules accepted: Orders HANDLE ASSEMBLER * Telephone Encounter - Blake Sorenson RN - 03/23/2023 2:51 PM MOP HANDLE ASSEMBLER Patient is aware and verbalizes understanding. Patient states that he would have to be asleep for the MRI. He is allergic to iodinated contrast. He states if MRI with sedation is not able to be approved or done he would consider doing MRI with po sedation. Attempted to place MRI liver. Reviewed US TIPS ultrasound with Analisa Bello FINANCIAL INSTITUTION PRESIDENT, patient can be referred to nephrology for kidney lesion on U/S Tips. Per Analisa Bello FINANCIAL INSTITUTION PRESIDENT, ok to hold on MRI with liver protocol till patient is evaluated for kidney lesion. Per Riddhi Dee FINANCIAL INSTITUTION PRESIDENT, verify if patient was getting TIPPS checked every 3 months. Will ask patient how often he gets TIPPS dopplers and will place recall. Called patient. Left message for patient to call back. HANDLE ASSEMBLER HANDLE ASSEMBLER HANDLE ASSEMBLER * Telephone Encounter - Riddhi Bello APRN, CNP - 03/18/2023 12:19 PM CST Ultrasound report reviewed. We will need to watch the Tips closely. It is patent at this time but the velocity of the flow is slightly decreased It would be recommended to have the liver protocol MRI. We can offer medication for sedation once this is scheduled. HANDLE ASSEMBLER * Telephone Encounter - Blake Sorenson RN - 03/17/2023 4:05 PM MOP HANDLE ASSEMBLER Patient calling and reporting he had the doppler at [facility] for his TIPPS. Report noted in [facility]where on 03/04/2023 at [facility]. Patient reports if he has to have an MRI for a follow on a lesion, he did read the report on his mychart, he will need sedation. Please review and advise. HANDLE ASSEMBLER documented in this encounter Plan of Treatment Scheduled Referrals Name Type Priority Associated Diagnoses Order Schedule EXTERNAL NEPHROLOGY REFERRAL Outpatient Referral Less Than 1 week Renal lesion Expected: 03/23/2023, Expires: 03/23/2024 documented as of this encounter Visit Diagnoses Diagnosis Renal lesion- Primary Unspecified disorder of kidney and ureter documented in this encounter Care Teams Technician Automated Equipment Relationship Specialty Start Date End Date Braydon Pavon PAC [address] [place] [address] PCP - General Physician Paymaster Of Purses 06/22/18 Riddhi Bello APRN, RISK CONTROL REPRESENTATIVE [address] [place] [address] Nurse Practitioner Advanced Practice Nurse 02/10/23 documented as of this encounter
--- OUTSIDE RECORDS SUMMARY | 2024-05-08 07:28 | XMS_ITS | Encounter Summary ---
Author Organization [facility] Address [address] [place] [address] Phone Care Team Providers Care Station Cashier Name Role Phone LibradoBraydon Primary Care Provider [phone] Vikram Mora MD Unavailable Riddhi Bello APRN, CNP Unavailable Reason for Referral * Radiology Services (Routine) - Closed Specialty Diagnoses / Procedures Referred By Contac t Referred To Contact Radiology Diagnoses Pain of upper abdomen Nausea and vomiting, unspecified vomiting type Procedures NM HEPATOBILIARY WITH PHARM Riddhi Bello APRN, DOROTHY [address] [place] [address] Phone: tel: fax: Referral ID Status Reason Start Date Expiration Date Visits Re quested Visits Authorized [id number] Closed 05/29/2023 1 1 HANT MILLER * Radiology Services (Routine) - Closed Specialty Diagnoses / Procedures Referred By Contac t Referred To Contact Radiology Diagnoses Tail bone pain Procedures XR SACRUM & COCCYX Riddhi Bello APRN, FINAL BLOCK PRESS OPERATOR [address] [place] [address] Phone: tel: fax: Referral ID Status Reason Start Date Expiration Date Visits Re quested Visits Authorized [id number] Closed 05/29/2023 1 1 HANT MILLER * Radiology Services (Routine) - Closed Specialty Diagnoses / Procedures Referred By Jordan casillas Referred To Contact Radiology Diagnoses Pain of upper abdomen Nausea and vomiting, unspecified vomiting type Procedures XR ABDOMEN KUB FLAT PLATE Riddhi Bello APRN, CNP [address] [place] [address] Phone: tel: fax: Referral ID Status Reason Start Date Expiration Date Visits Re quested Visits Authorized [id number] Closed 05/29/2023 1 1 HANT MILLER Reason for Visit * Reason Comments Abdominal Pain Encounter Details Date Type Department Care Team (Latest Contact Info) Description 05/29/2023 11:30 AM MERCHANT MILLER Office Visit [facility] - Gastroenterology 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) (Primary [...] on file Legal Sex Male 10:58 AM MERCHANT MILLER Gender Identity Not on file Sexual Orientation Not on file documented as of this encounter Last Filed Vital Signs Vital Sign Reading Time Taken Comments Blood Pressure 98/72 05/29/2023 11:22 AM MERCHANT MILLER Pulse 116 05/29/2023 11:22 AM MERCHANT MILLER Temperature 36.4 ??C (97.5 ??F) 05/29/2023 11:[address] Respiratory Rate 18 05/29/2023 11:22 AM MERCHANT MILLER Oxygen Saturation 98% 05/29/2023 11:22 AM MERCHANT MILLER Inhaled Oxygen Concentration - - Weight 95.9 kg (211 lb 8 oz) 05/29/2023 11:22 AM MERCHANT MILLER Height 170.2 cm (5' 7 ) 05/29/2023 11:22 AM MERCHANT MILLER Body Mass Index 33.13 05/29/2023 11:22 AM MERCHANT MILLER documented in this encounter Progress Notes * Riddhi Bello APRN, DOROTYH - 05/29/2023 11:30 AM CST SAPG GASTRO [facility] - GASTROENTEROLOGY - [place] [address] [facility] [address] Dept: [phone] Dept Loc: [phone] Loc Patient: Camilo Curry : 1970 Sex: [...] or fail to improve. Subjective Subjective: HPI: Camlio Curry is a 52 y.o. male presents [...] that he fell 2 days ago at [facility] when he walked around an isle [...] SNARE, DIVERTICULOSIS; Surgeon: Ac Berger MD; Location: [facility]; Service: Gastroenterology ??? COLONOSCOPY W/ BIOPSY 2005 ??? EGD WITH BANDING ??? EGD WITH BANDING ??? TIPS PROCEDURE TIMES 2 ??? UPPER GASTROINTESTINAL ENDOSCOPY N/A 03/24/2023 Procedure: EGD-PORTAL HYPERTENSIVE GASTROPATHY, GRADE ONE ESOPHAGEAL VARCIES; Surgeon: Ac Berger MD; Location: [facility]; Service: Gastroenterology Medications: Current Outpatient Medications: ??? albuterol 108 (90 Base) MCG/ACT Aerosol Solution ??? ALPRAZolam (XANAX) 1 MG Tablet ??? carvedilol (COREG) 3.125 MG Tablet ??? ergocalciferol (VITAMIN D) 36854 UNIT Capsule ??? famotidine (PEPCID) 20 MG [...] MM Misc ??? Insulin Pen Needle (Pen [place]) 32G X 4 MM Misc ??? Insulin [...] prior EGD and colonoscopy report Riddhi Bello, FOOD AND BEVERAGE DIRECTOR, FINAL BLOCK PRESS OPERATOR This note was transcribed using M-Modal speech recognition software. As a result, there may be unintended grammar and spelling errors. 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 No scintigraphic evidence of common bile or cystic duct obstruction. Normal contractile response of the gallbladder to fatty meal stimulation. Narrative 06/11/2023 11:47 AM MERCHANT MILLER EXAM DESCRIPTION: ?? NM HEPATOBILIARY WITH PHARM [...] AM T: ??06/11/2023 11:45 AM Report ID: [id number] Reading Location: ??[id number] Procedure Note Rajeev Villalobos MD - 06/11/2023 [...] Rajeev Villalobos M.D. LB: DONNA Report ID: [id number] Reading Location: [place] [address] IMPRESSION: No scintigraphic evidence of common bile or cystic duct obstruction. Normal contractile response of the gallbladder to fatty meal stimulation. Riddhi Bello FOOD AND BEVERAGE DIRECTOR, FINAL BLOCK PRESS OPERATOR IMG NM ORDERABLES Final Result * XR ABDOMEN KUB FLAT PLATE (05/29/2023 1:28 PM MERCHANT MILLER) Anatomical Region Laterality Modality Abdomen N/A Digital Radiogra phy 06/01/2023 6:23 PM MERCHANT MILLER Impressions 06/01/2023 6:26 PM MERCHANT MILLER IMPRESSION: ?? 1. ??Nonobstructive bowel gas pattern. Narrative 06/01/2023 6:26 PM MERCHANT MILLER EXAM DESCRIPTION: ?? XR ABDOMEN KUB FLAT [...] PM T: ??06/01/2023 6:23 PM Report ID: [id number] Reading Location: ??[id number] Procedure Note Nixon Wetzel MD - 06/01/2023 [...] 6:23 PM - Electronically signed by Nixon Wetzle M.D. BS: BS Report ID: [id number] Reading Location: [id number] IMPRESSION: 1. Nonobstructive bowel gas pattern. Riddhi Bello FOOD AND BEVERAGE DIRECTOR, FINAL BLOCK PRESS OPERATOR IMG DIAGNOSTIC OR DERABLES Final Result * XR SACRUM & COCCYX (05/29/2023 1:27 PM MERCHANT MILLER) Anatomical Region Laterality Modality Spine, Sacrum, Coccyx N/A Digital Ra diography 06/01/2023 7:28 AM MERCHANT MILLER Impressions 06/01/2023 7:30 AM MERCHANT MILLER IMPRESSION: No acute fracture identified. Inferior lumbar degenerative disc disease. Narrative 06/01/2023 7:30 AM MERCHANT MILLER EXAM DESCRIPTION: XR SACRUM and COCCYX REASON [...] AM T: ??06/01/2023 7:28 AM Report ID: [id number] Reading Location: ??[id number] Procedure Note Joel Yip MD - 06/01/2023 [...] Joel Yip M.D. MF: [id number] Report ID: [id number] Reading Location: [id number] IMPRESSION: No acute fracture identified. Inferior lumbar degenerative disc disease. us Riddhi Bello APRN, DOROTHY IMG DIAGNOSTIC OR DERABLES Final Result * (ABNORMAL) AMMONIA (05/29/2023 1:09 PM MERCHANT MILLER) AMMONIA 92(H) 18 - 72 umol/L 05/29/2023 1:32 PM MERCHANT MILLER [facility] Blood Venipuncture / Unknown 05/29/2023 1:09 PM MERCHANT MILLER 05/29/2023 1:19 PM MERCHANT MILLER us Riddhi Bello APRN, FINAL BLOCK PRESS OPERATOR CHEMISTRY ORDERAB LES Final Result [facility] [address] [place] [address] * LIPASE (05/29/2023 1:09 PM MERCHANT MILLER) LIPASE 13 8 - 78 U/L 05/29/2023 1:49 PM MERCHANT MILLER [facility] Blood Venipuncture / Unknown 05/29/2023 1:09 PM MERCHANT MILLER 05/29/2023 1:20 PM MERCHANT MILLER Riddhi Bello FOOD AND BEVERAGE DIRECTOR, FINAL BLOCK PRESS OPERATOR CHEMISTRY ORDERAB LES Final Result Performing Organization Address City/[facility] Co de Phone Number [facility] [address] [place] [address] * (ABNORMAL) CMP (COMPREHENSIVE METABOLIC PANEL) (05/29/2023 1:09 PM MERCHANT MILLER) SODIUM 130(L) 136 - 145 mmol/L 05/29/2023 1:49 PM MERCHANT MILLER [facility] POTASSIUM 4.5 3.5 - 5.1 mmol/L 05/29/2023 1:49 PM MERCHANT MILLER [facility] CHLORIDE 101 98 - 107 mmol/L 05/29/2023 1:49 PM MERCHANT MILLER [facility] CO2, VENOUS 22 22 - 30 mmol/L 05/29/2023 1:49 PM MERCHANT MILLER [facility] ANION GAP 11.5 <18.0 mmol/L 05/29/2023 1:49 PM MERCHANT MILLER [facility] GLUCOSE 288(H) 70 - 99 mg/dL 05/29/2023 1:49 PM MERCHANT MILLER [facility] BUN 11 8 - 26 mg/dL 05/29/2023 1:49 PM MERCHANT MILLER [facility] CREATININE, BLOOD 1.16 0.70 - 1.30 mg/dL 05/29/2023 1:49 PM MERCHANT MILLER [facility] BUN/CREATININE RATIO 9(L) 12 - 20 ratio 05/29/2023 1:49 PM [facility] TOTAL PROTEIN 7.1 6.3 - 8.2 g/dL 05/29/2023 1:49 PM [facility] ALBUMIN 3.8 3.5 - 5.0 g/dL 05/29/2023 1:49 PM [facility] A/G RATIO 1.2 1.0 - 2.2 05/29/2023 1:49 PM [facility] CALCIUM 9.6 8.7 - 10.5 mg/dL 05/29/2023 1:49 PM [facility] T BILI 3.4(H) 0.2 - 1.2 mg/dL 05/29/2023 1:49 PM [facility] SGOT (AST) 36(H) 5 - 34 U/L 05/29/2023 1:49 PM [facility] SGPT (ALT) 23 0 - 55 U/L 05/29/2023 1:49 PM [facility] ALKALINE PHOSPHATASE 103 40 - 150 U/L 05/29/2023 1:49 PM [facility] IS THE PATIENT REQUIRED TO BE FASTING? No 05/29/2023 1:49 PM [facility] GFR, ESTIMATED >60 >=60 05/29/2023 1:49 PM [facility] Comment: Creatinine Clearance is the preferred criteria for selecting drug dose adjustments in renally impaired patients. ??The GFR is provided as additional pertinent clinical information. GFR is reported in mL/min/1.73 sq m. Calculation based on the Chronic Kidney Disease Epidemiology Collaboration (CKD- EPI) equation refit without adjustment for race. GFR, EST. >60 >=60 024 1:49 PM [facility] GFR, EST. NONAFRICAN >60 >=60 05/29/2023 1:49 PM [facility] Blood Venipuncture / Unknown 05/29/2023 1:09 PM MERCHANT MILLER 05/29/2023 1:20 PM MERCHANT MILLER Riddhi Bello APRN, CNP CHEMISTRY ORDERAB LES Final Result [facility] [address] [place] [address] documented in this encounter Visit Diagnoses Diagnosis [...] type documented in this encounter Care Teams Station Cashier Relationship Specialty Start Date End Date Braydon Pavon, [facility] [address] [place] [address] PCP - General Physician Travel Freight And Passenger Agent 06/22/18 Vikram Mora MD #[address] [address] Consulting Physician Endocrinology 05/21/23 Riddhi eBllo APRN, CNP [address] [place] [address] Nurse Practitioner Advanced Practice Nurse 02/10/23 documented as of this encounter
--- OUTSIDE RECORDS SUMMARY | 2024-05-08 07:28 | XMS_ITS | Encounter Summary ---
Author Organization [facility] Address [address] [place] [address] Phone Care Team Providers Care Screen Printer Helper Name Role Phone Braydon Pavon Primary Care Provider [phone] Vikram Mora MD Unavailable [facility], [facility] Unavailable Reason for Visit * Reason Comments New Patient Diabetes Mellitus * Consult, Test & Initiate Treatment (Routine) - Closed Specialty Diagnoses / Procedures Referred By Contac t Referred To Contact Endocrinology Diagnoses Type 2 diabetes mellitus without complications Braydon Pavon, PAC [address] [place] [address] Phone: tel: fax: Vikram Mora MD [address] [address] Phone: tel: fax: Referral ID Status Reason Start Date Expiration Date Visits Re quested Visits Authorized [id number] Closed 1 1 Encounter Details Date Type Department Care Team (Late st Contact Info) Description 06/01/2023 8:00 AM MILLING SUPERVISOR Office Visit [facility] - Endocrinology - [place] [address] [place] [address] Vikram Mora MD [address] [address] (work) Type 2 diabetes mellitus [...] on file Legal Sex Male 10:58 AM MILLING SUPERVISOR Gender Identity Not on file Sexual Orientation Not on file documented as of this encounter Last Filed Vital Signs Vital Sign Reading Time Taken Comments Blood Pressure 98/74 06/01/2023 7:54 AM MILLING SUPERVISOR Pulse 85 06/01/2023 7:54 AM MILLING SUPERVISOR Temperature 37.1 ??C (98.7 ??F) 06/01/2023 7:54 AM CS T Respiratory Rate 16 06/01/2023 7:54 AM MILLING SUPERVISOR Oxygen Saturation 94% 06/01/2023 7:54 AM MILLING SUPERVISOR Inhaled Oxygen Concentration - - Weight 97.1 kg (214 lb) 06/01/2023 7:54 AM MILLING SUPERVISOR Height - - Body Mass Index 33.52 05/29/2023 11:22 AM MILLING SUPERVISOR documented in this encounter Patient Instructions * Patient Instructions* Vikram Mora MD - 06/01/2023 8:00 AM MILLING SUPERVISOR Please take Lantus 40 units at bedtime [...] +11 UNITS ABOVE 361 +12 UNITS ING SUPERVISOR documented in this encounter Progress Notes * [...] severe low blood sugar event requiring third republican intervention. Unfortunately, the patient did not bring [...] SNARE, DIVERTICULOSIS; Surgeon: Ac Berger MD; Location: [facility]; Service: Gastroenterology ??? COLONOSCOPY W/ BIOPSY 2005 ??? EGD WITH BANDING ??? EGD WITH BANDING ??? TIPS PROCEDURE TIMES 2 ??? UPPER GASTROINTESTINAL ENDOSCOPY N/A 03/24/2023 Procedure: EGD-PORTAL HYPERTENSIVE GASTROPATHY, GRADE ONE ESOPHAGEAL VARCIES; Surgeon: Ac Berger MD; Location: [facility]; Service: Gastroenterology Social History [...] hemoglobin A1c is well above the patient's [place] [employer] treatmenttarget of less than 7%. [...] including pre-visit review of separately obtained history, [id number] interaction performing medically appropriate physical exam, patientcounseling/education, interpretation of diagnostic results, care coordination and documentation was47 minute Vikram Mora MD 06/01/2023 ING SUPERVISOR documented in this encounter Plan of Treatment [...] (HCC) documented in this encounter Care Teams Screen Printer Helper Relationship Specialty Start Date End Date Braydon Pavon PAC [address] [place] [id number] PCP - General Physician Craft Center Director 06/22/18 Vikram Mora MD [address] [phone] Consulting Physician Endocrinology 05/21/23 Riddhi Bello APRN, COMMAND AND CONTROL [address] [place] [address] Nurse Practitioner Advanced Practice Nurse 02/10/23 documented as of this encounter
--- OUTSIDE RECORDS SUMMARY | 2024-05-08 07:28 | XMS_ITS | Encounter Summary ---
Author Organization [facility] Address [address] [place] [address] Phone Care Team Providers Care Ground Support Agent Name Role Phone BebeabBraydon Primary Care Provider [phone] Vikram Mora MD Unavailable Riddhi Bello APRN, CNP Unavailable Reason for Referral * Radiology Services (Routine) - Closed Specialty Diagnoses / Procedures Referred By Contac t Referred To Contact Radiology Diagnoses Pain of upper abdomen Nausea and vomiting, unspecified vomiting type Procedures XR ABDOMEN KUB FLAT PLATE Riddhi Bello APRN, MENTAL HEALTH UNIT LEAD PSYCHOLOGIST [address] [place] [address] Phone: tel: fax: Referral ID Status Reason Start Date Expiration Date Visits Re quested Visits Authorized [id number] Closed 05/29/2023 1 1 ON PUNCHER * Radiology Services (Routine) - Closed Specialty Diagnoses / Procedures Referred By Contac t Referred To Contact Radiology Diagnoses Tail bone pain Procedures XR SACRUM & COCCYX Riddhi Bello APRN, MENTAL HEALTH UNIT LEAD PSYCHOLOGIST [address] [place] [address] Phone: tel: fax: Referral ID Status Reason Start Date Expiration Date Visits Re quested Visits Authorized [id number] Closed 05/29/2023 1 1 ON PUNCHER Reason for Visit * Radiology Services (Routine) - Closed Specialty Diagnoses / Procedures Referred By Jordan t Referred To Contact Radiology Diagnoses Tail bone pain Procedures XR SACRUM & COCCYX Riddhi Bello APRN, MENTAL HEALTH UNIT LEAD PSYCHOLOGIST [address] [place] [address] Phone: tel: fax: Referral ID Status Reason Start Date Expiration Date Visits Re quested Visits Authorized [id number] Closed 05/29/2023 1 1 Encounter Details Date Type Department Care Team (Late st Contact Info) Description 05/29/2023 12:30 PM MUTTON PUNCHER - 05/29/2023 11:59 PM MUTTON PUNCHER Hospital Encounter [facility] [address] [place] [address] Riddhi Bello APRN, MENTAL HEALTH UNIT LEAD PSYCHOLOGIST [address] [place] [address] Discharge Disposition: Discharged to home or Selfcare [...] on file Legal Sex Male 10:58 AM MUTTON PUNCHER Gender Identity Not on file Sexual Orientation Not on file documented as of this encounter Medications at Time of Discharge albuterol 108 (90 Base) MCG/ACT Aerosol Solution every 4 hours as needed. 02/02/2023 ALPRAZolam (XANAX) 1 MG Tablet Take by mouth as needed. carvedilol (COREG) 3.125 MG Tablet Take 1 Tablet by mouth 2 times daily. 180 Tablet 3 02/17/2023 ergocalciferol (VITAMIN D) 53799 UNIT Capsule Take 50,000 Units by mouth. [...] Subcutaneous route. 11/07/2020 Insulin Pen Needle (Pen [place]) 32G X 4 MM Misc Inject [...] KUB FLAT PLATE Routine 05/29/2023 1:28 PM MUTTON PUNCHER Pain of upper abdomen Nausea and vomiting, unspecified vomiting type XR SACRUM & COCCYX Routine 05/29/2023 1: 27 PM MUTTON PUNCHER Tail bone pain documented in this encounter Results * XR ABDOMEN KUB FLAT PLATE (05/29/2023 1:28 PM MUTTON PUNCHER) Anatomical Region Laterality Modality Abdomen N/A Digital Radiogra phy 06/01/2023 6:23 PM MUTTON PUNCHER Impressions 06/01/2023 6:26 PM MUTTON PUNCHER IMPRESSION: ?? 1. ??Nonobstructive bowel gas pattern. Narrative 06/01/2023 6:26 PM MUTTON PUNCHER EXAM DESCRIPTION: ?? XR ABDOMEN KUB FLAT [...] PM T: ??06/01/2023 6:23 PM Report ID: [id number] Reading Location: ??[id number] Procedure Note Nixon Wetzel MD - 06/01/2023 [...] Nixon Wetzel M.D. BS: [email or web address] Report ID: [id number] Reading Location: [id number] IMPRESSION: 1. Nonobstructive bowel gas pattern. Riddhi Bello MANAGER GALLERY, MENTAL HEALTH UNIT LEAD PSYCHOLOGIST IMG DIAGNOSTIC OR DERABLES Final Result * XR SACRUM & COCCYX (05/29/2023 1:27 PM MUTTON PUNCHER) Anatomical Region Laterality Modality Spine, Sacrum, Coccyx N/A Digital Ra diography 06/01/2023 7:28 AM MUTTON PUNCHER Impressions 06/01/2023 7:30 AM MUTTON PUNCHER IMPRESSION: No acute fracture identified. Inferior lumbar degenerative disc disease. Narrative 06/01/2023 7:30 AM MUTTON PUNCHER EXAM DESCRIPTION: XR SACRUM and COCCYX REASON [...] AM T: ??06/01/2023 7:28 AM Report ID: [id number] Reading Location: ??[id number] Procedure Note Joel Yip MD - 06/01/2023 [...] Joel Yip M.D. MF: [id number] Report ID: [id number] Reading Location: [id number] IMPRESSION: No acute fracture identified. Inferior lumbar degenerative disc disease. Riddhi Bello APRN, CNP IM[facility] DIAGNOSTIC OR DERABLES Final Result documented in this encounter Visit Diagnoses Diagnosis Tail bone pain Other disorder of coccyx Pain of upper abdomen Abdominal pain, other specified site Nausea and vomiting, unspecified vomiting type documented in this encounter Care Teams Ground Support Agent Relationship Specialty Start Date End Date Braydon Pavon PAC [address] [place] [id number] PCP - General Physician Glass Toughening Operator 06/22/18 Vikram Mora MD #[address] [phone] Consulting Physician Endocrinology 05/21/23 Riddhi Bello APRN, DOROTHY [address] [place] [address] Nurse Practitioner Advanced Practice Nurse 02/10/23 documented as of this encounter
--- OUTSIDE RECORDS SUMMARY | 2024-05-08 07:28 | XMS_ITS | Encounter Summary ---
Author Organization [employer] Care Team Providers Care Gun Stock Checker Name Role Phone Braydon Pavon Primary Care Provider [phone] Riddhi Bello APRN, GIFT BASKET PACKER Unavailable Encounter Details Date Type Department Care [...] on file Legal Sex Male 10:58 AM LICENSED LOAN OFFICER Gender Identity Not on file Sexual Orientation Not on file documented as of this encounter Plan of Treatment Not on file documented as of this encounter Visit Diagnoses Not on filedocumented in this encounter Care Teams Gun Stock Checker Relationship Specialty Start Date End Date Braydon Pavon PAC [address] [place] [id number] PCP - General Physician Licensed Loan Officer 06/22/18 Riddhi Bello APRN, GIFT BASKET PACKER [address] [place] [address] Nurse Practitioner Advanced Practice Nurse 02/10/23 documented as of this encounter
--- OUTSIDE RECORDS SUMMARY | 2024-05-08 07:28 | XMS_ITS | Encounter Summary ---
Author Organization [facility] Address [address] [place] [address] Phone Care Team Providers Care Receiving Manager Name Role Phone Braydon Pavon VAL Primary Care Provider [phone] Vikram Mclean MD Unavailable Riddhi Bello APRN, CNP Unavailable Reason for Visit * Reason Onset Date Comments Medication Refill 06/08/2023 Encounter Details Date Type Department Care Team (Late st Contact Info) Description 06/08/2023 Refill [facility] - Endocrinology - [place] [address] [place] [address] Vikram Mclean MD [address] [address] Medication Refill Social History Tobacco [...] file Legal Sex Male 10:58 AM DIRECTOR POST Gender Identity Not on file Sexual Orientation Not on file documented as of this encounter Miscellaneous Notes * Telephone Encounter - Blake Garrett RN - 06/08/2023 11:31 AM DIRECTOR POST Requested Prescriptions Signed Prescriptions Disp Refills ??? Continuous Blood Gluc Sensor (Dexcom G7 Sensor) Misc 9 Each 1 Sig: Change sensor every 10 days. Authorizing Provider: VIKRAM MCLEAN Ordering User: BLAKE GARRETT Requesting a 90 day supply. CTOR POST documented in this encounter Plan of Treatment Not on file documented as of this encounter Visit Diagnoses Not on filedocumented in this encounter Care Teams Receiving Manager Relationship Specialty Start Date End Date Braydon Pavon PAC [address] [place] [address] PCP - General Physician Pharmacy Delivery Driver 06/22/18 Vikram Mclean MD [address] [phone] Consulting Physician Endocrinology 05/21/23 Riddhi Bello APRN, SUPERINTENDENT OPERATING [address] [place] [address] Nurse Practitioner Advanced Practice Nurse 02/10/23 documented as of this encounter
--- OUTSIDE RECORDS SUMMARY | 2024-05-08 07:28 | XMS_ITS | Encounter Summary ---
Author Organization [employer] Care Team Providers Care Informatics Spec Name Role Phone Braydon Pavon Primary Care Provider [phone] Riddhi Bello APRN, GLASS CURVATURE GAUGER Unavailable Encounter Details Date Type Department Care [...] on file Legal Sex Male 10:58 AM PRINTED CIRCUIT BOARDS LAMINATOR Gender Identity Not on file Sexual Orientation [...] on filedocumented in this encounter Care Teams Informatics Spec Relationship Specialty Start Date End Date Braydon Pavon PAC [address] [place] [address] PCP - General Physician Control Technician 06/22/18 Riddhi Bello APRN, GLASS CURVATURE GAUGER [address] [place] [address] Nurse Practitioner Advanced Practice Nurse 02/10/23 documented as of this encounter
--- OUTSIDE RECORDS SUMMARY | 2024-05-08 07:28 | XMS_ITS | Encounter Summary ---
Author Organization [facility] Address [address] [place] [address] Phone Care Team Providers Care Cot Assembler Name Role Phone Braydon Pavon Kunal NAEL Primary Care Provider [phone] Vikram Mora MD Unavailable Riddhi Bello APRN, CNP Unavailable Encounter Details Date Type Department Care Team (Late st Contact Info) Description 07/07/2023 Telephone [facility] - Endocrinology - [place] [address] [place] [address] Vikram Mora MD [address] [address] Social History Tobacco Use Types Packs/Day Years Used Date Smoking Tobacco: Former Cigarettes Q uit: 2002 Smokeless Tobacco: Never Alcohol Use Standard Drinks/Week Comments Not Currently 0 (1 standard drink = 0.6 oz pur e alcohol) Sexually Active Control Partners Comments Yes Female Sex and Gender Information Value Date Recorded Sex Assigned at Not on file Legal Sex Male 10:58 AM WET PROCESS MILLER HEAD Gender Identity Not on file Sexual Orientation Not on file documented as of this encounter Miscellaneous Notes * Telephone Encounter - Brianna Brown RN - 07/07/2023 10:59 AM WET PROCESS MILLER HEAD No show letter sent. PROCESS MILLER HEAD documented in this encounter Plan of Treatment Not on file documented as of this encounter Visit Diagnoses Not on filedocumented in this encounter Care Teams Cot Assembler Relationship Specialty Start Date End Date Braydon Pavon PAC [address] [place] [address] PCP - General Physician Senior Hris Analyst 06/22/18 Vikram Mora MD [address] [phone] Consulting Physician Endocrinology 05/21/23 Riddhi Bello APRN, EMAIL SPECIALIST [address] [place] [address] Nurse Practitioner Advanced Practice Nurse 02/10/23 documented as of this encounter
--- OUTSIDE RECORDS SUMMARY | 2024-05-08 07:28 | XMS_ITS | Encounter Summary ---
Author Organization [facility] Address [address] [place] [address] Phone Care Team Providers Care Perinatal Director Name Role Phone Janeth Pavon Kunal NEAL Primary Care Provider [phone] Riddhi Bello APRN, AREA CAPTAIN Unavailable Reason for Referral * Radiology Services (Routine) - Closed Specialty Diagnoses / Procedures Referred By Jordan casillas Referred To Contact Radiology Procedures GI LAB IMAGING - EGD Ac Berger MD [address] [address] Phone: tel: fax: Referral ID Status Reason Start Date Expiration Date Visits Re quested Visits Authorized [id number] Closed 03/24/2023 1 1 HATCHERY SPECIALIST * Radiology Services (Routine) - Closed Specialty Diagnoses / Procedures Referred By Jordan casillas Referred To Contact Radiology Procedures GI IMAGING - COLONOSCOPY Ac Berger MD [address] [address] Phone: tel: fax: Referral ID Status Reason Start Date Expiration Date Visits Re quested Visits Authorized [id number] Closed 03/24/2023 1 1 HATCHERY SPECIALIST Reason for Visit * Auth/Cert (Routine) Specialty Diagnoses / Procedures Referred By Jordan casillas Referred To Contact Diagnoses ESOPHAGEAL VARICES, HISTORY OF COLON POLYPS Procedures EGD COLONOSCOPY Referral ID Status Reason Start Date Expiration Date Visits Re quested Visits Authorized [id number] 1 1 Encounter Details Date Type Department Care Team (Latest Contact Info) Description 03/24/2023 6:19 AM FISH HATCHERY SPECIALIST - 03/24/2023 9:08 AM FISH HATCHERY SPECIALIST Hospital Encounter [facility] GI Lab Preop/Pacu II [address] [place] [address] Ac Berger MD 2 [facility] [address] [place] [address] Discharge Disposition: Discharged to home or Selfcare [...] on file Legal Sex Male 10:58 AM FISH HATCHERY SPECIALIST Gender Identity Not on file Sexual [...] Comments Blood Pressure 132/83 03/24/2023 8:36 AM FISH HATCHERY SPECIALIST Pulse 88 03/24/2023 8:36 AM FISH HATCHERY SPECIALIST Temperature 36 ??C (96.8 ??F) 03/24/2023 6:48 AM FISH HATCHERY SPECIALIST Respiratory Rate 20 03/24/2023 8:36 AM FISH HATCHERY SPECIALIST Oxygen Saturation 100% 03/24/2023 8:36 AM FISH HATCHERY SPECIALIST Inhaled Oxygen Concentration - - Weight 97.5 kg (215 lb) 02/27/2023 3:04 PM CDT Height 172.7 cm (5' 8 ) 02/27/2023 3:04 PM CDT Body Mass Index 32.69 02/27/2023 3:04 PM CDT documented in this encounter Discharge Instructions * Discharge Instructions* Felicitas Florentino RN - 03/24/2023 8:11 AM FISH HATCHERY SPECIALIST You had a colonoscopy today. Dr. Berger [...] WORK, UNLESS INSTRUCTED OTHERWISE. Call doctor's office ([phone]) or go to Emergency room for: Difficulty Breathing, Headache Or Visual Disturbances Persistent Dizziness Or Light-Headedness Persistent Nausea and Vomiting Temperature greater then 100.0 Significant abdominal pain, chest pain, or bleeding. Here at [facility] we strive to provide excellent care to [...] provided. Thank you for choosing [facility]. HATCHERY SPECIALIST HATCHERY SPECIALIST documented in this encounter Medications at Time of Discharge albuterol 108 (90 Base) MCG/ACT Aerosol Solution every 4 hours as needed. 02/02/2023 ALPRAZolam (XANAX) 1 MG Tablet Take by mouth as needed. carvedilol (COREG) 3.125 MG Tablet Take 1 Tablet by mouth 2 times daily. 180 Tablet 3 02/17/2023 ergocalciferol (VITAMIN D) 99264 UNIT Capsule Take 50,000 Units by mouth. [...] Subcutaneous route. 11/07/2020 Insulin Pen Needle (Pen [place]) 32G X 4 MM Misc Inject 3 [...] procedure. Ac Berger MD 03/24/2023 7:34 AM FISH HATCHERY SPECIALIST HATCHERY SPECIALIST documented in this encounter OR Notes * [...] Surgeon: Ac Berger MD, 03/24/2023, 8:07 AM FISH HATCHERY SPECIALIST Primary Care Physician: JANETH PAVON, PAC HATCHERY SPECIALIST * OR Surgeon - Ac Berger MD [...] Surgeon: Ac Berger MD, 03/24/2023, 7:41 AM FISH HATCHERY SPECIALIST Primary Care Physician: JANETH PAVON, PAC HATCHERY SPECIALIST documented in this encounter Miscellaneous Notes * [...] Transition of Care Outcome: Ongoing (see interventions/notes) HATCHERY SPECIALIST * Niru - Lyric Dudley RN - 02/27/2023 3:05 PM CDT [facility] GI TEACHING Patient Name: Camilo Curry : 1970 CSN#: [id number] Person Educated Patient Ready to Learn Yes [...] for your procedure as instructed by the [facility] GI Lab. Go to Registration the morning [...] be allowed to accompany you to the [facility]. No children under the age of 16 will be allowed in the [facility] unless they are the patient. [...] to Teaching: Verbalizes Understanding Patient assessed for american sign language interpreter during the preop interview and appropriate interventions taken if applicable. documented in this encounter Plan of Treatment Not on file documented as of this encounter Procedures Procedure Name Priority Date/Time Associated Diagnosis Comments CBC WITH AUTO DIFFERENTIAL STAT 03/24/2023 9:01 AM FISH HATCHERY SPECIALIST PROTIME (PT) (PROTHROMBIN TIME) STAT 03/24/2023 9:01 AM FISH HATCHERY SPECIALIST CMP (COMPREHENSIVE METABOLIC PANEL) STAT 03/24/2023 9:01 AM FISH HATCHERY SPECIALIST COMPLETE BLOOD COUNT (CBC) WITH DIFF STAT 03/24/2023 9:01 AM FISH HATCHERY SPECIALIST PATHOLOGY SURGICAL Routine 03/24/2023 8: 03 AM FISH HATCHERY SPECIALIST COLONOSCOPY 03/24/2023 7:31 AM FISH HATCHERY SPECIALIST EGD-PORTAL HYPERTENSIVE GASTROPATHY, GRADE ONE ESOPHAGEAL VARCIESCOLONOSCOPY-C ECAL POLYP REMOVED BY HOT SNARE, DIVERTICULOSIS Special Needs DM, DOUBLE PREP - Dx varices/polyps EGD 03/24/2023 7:31 AM FISH HATCHERY SPECIALIST EGD-PORTAL HYPERTENSIVE GASTROPATHY, GRADE ONE ESOPHAGEAL VARCIESCOLONOSCOPY-C ECAL POLYP REMOVED BY HOT SNARE, DIVERTICULOSIS Special Needs DM, DOUBLE PREP - Dx varices/polyps POCT GLUCOSE Routine 03/24/2023 6:41 AM FISH HATCHERY SPECIALIST GI LAB IMAGING - EGD Routine 03/24/2023 6:23 AM FISH HATCHERY SPECIALIST GI IMAGING - COLONOSCOPY Routine 03/24/2023 6:23 AM FISH HATCHERY SPECIALIST documented in this encounter Results * (ABNORMAL) CBC with Auto Differential (03/24/2023 9:01 AM FISH HATCHERY SPECIALIST) WBC 3.75(L) 4.00 - 12.00 10(3)/mcL 03/24/2023 9:33 AM FISH HATCHERY SPECIALIST [facility] RBC 5.77 4.40 - 5.80 10(6)/mcL 03/24/2023 9:33 AM FISH HATCHERY SPECIALIST [facility] HEMOGLOBIN (HGB) 13.2 13.0 - 16.5 g/dL 03/24/2023 9:33 AM FISH HATCHERY SPECIALIST [facility] HEMATOCRIT (HCT) 42.5 38.0 - 50.0 % 03/24/2023 9:33 AM FISH HATCHERY SPECIALIST [facility] MCV 73.7(L) 82.0 - 96.0 fL 03/24/2023 9:33 AM FISH HATCHERY SPECIALIST [facility] MCH 22.9(L) 26.0 - 32.0 pg 03/24/2023 9:33 AM FISH HATCHERY SPECIALIST [facility] MCHC 31.1 31.0 - 36.0 g/dL 03/24/2023 9:33 AM FISH HATCHERY SPECIALIST [facility] PLATELET COUNT 90(L) 140 - 440 10(3)/[facility] 03/24/2023 9:33 AM [facility] RDW 17.3(H) 11.8 - 15.5 % 03/24/2023 9:33 AM [facility] MPV 10.4 8.0 - 12.6 fL 03/24/2023 9:33 AM FISH HATCHERY SPECIALIST [facility] NEUTROPHILS 70.2(H) 40.0 - 68.0 % 03/24/2023 9:33 AM [facility] LYMPHOCYTES 16.8(L) 19.0 - 49.0 % 03/24/2023 9:33 AM [facility] MONOCYTES 8.0 3.0 - 13.0 % 03/24/2023 9:33 AM [facility] EOSINOPHILS 3.7 0.0 - 8.0 % 03/24/2023 9:33 AM [facility] BASOPHILS 1.3(H) 0.0 - 1.0 % 03/24/2023 9:33 AM [facility] ABSOLUTE NEUTROPHILS 2.63 1.40 - 5.30 10(3)/[facility] 03/24/2023 9:33 AM [facility] ABSOLUTE LYMPHOCYTES 0.63(L) 0.90 - 3.30 10(3)/[facility] 03/24/2023 9:33 AM [facility] ABSOLUTE MONOCYTES 0.30 0.10 - 0.90 10(3)/[facility] 03/24/2023 9:33 AM [facility] ABSOLUTE EOSINOPHIL 0.14 0.00 - 0.50 10(3)/[facility] 03/24/2023 9:33 AM [facility] ABSOLUTE BASOPHILS 0.05 0.00 - 0.10 10(3)/[facility] 03/24/2023 9:33 AM [facility] NRBC PER 100 WBC 0 03/24/20 9:33 AM [facility] RESULTS ARE CONSISTENT WITH PERIPHERAL SMEAR REVIEW Yes 03/24/2023 9:33 AM FISH HATCHERY SPECIALIST [facility] Blood Venipuncture / Unknown 03/24/2023 9:01 AM FISH HATCHERY SPECIALIST 03/24/2023 9:05 AM FISH HATCHERY SPECIALIST Narrative [facility] - 03/24/2023 9:33 AM FISH HATCHERY SPECIALIST microcytes Ac Berger MD HEMATOLOGY ORDERABLES Final Resu lt Performing Organization Address City/[facility] Co de Phone Number [facility] [address] [place] [address] * (ABNORMAL) PROTIME (PT) (PROTHROMBIN TIME) (03/24/2023 9:01 AM FISH HATCHERY SPECIALIST) PROTIME-PATIENT 15.4(H) 11.6 - 14.8 sec 03/24/2023 9:20 AM FISH HATCHERY SPECIALIST [facility] INR 1.2 0.9 - 1.2 03/24/2023 9:20 AM FISH HATCHERY SPECIALIST [facility] Comment: Therapeutic Ranges INR = 2.0-3.0: Venous thromb, atrial fib, pul embolism, tissue heart valve, ami. INR = 2.5-3.5: Mechanical heart valve Critical value for INR is >/= 4.5 Blood Venipuncture / Unknown 03/24/2023 9:01 AM FISH HATCHERY SPECIALIST 03/24/2023 9:05 AM FISH HATCHERY SPECIALIST Ac Berger MD HEMATOLOGY ORDERABLES Final Resu lt Performing Organization Address City/[facility] Co de Phone Number [facility] [address] [place] [address] * (ABNORMAL) CMP (Comprehensive Metabolic Panel) (03/24/2023 9:01 AM FISH HATCHERY SPECIALIST) Pathologist [facility] SODIUM 137 136 - 145 mmol/L 03/24/2023 9:29 AM FISH HATCHERY SPECIALIST [facility] POTASSIUM 4.1 3.5 - 5.1 mmol/L 03/24/2023 9:29 AM [facility] CHLORIDE 104 98 - 107 mmol/L 03/24/2023 9:29 AM [facility] CO2, VENOUS 24 22 - 30 mmol/L 03/24/2023 9:29 AM [facility] ANION GAP 13.1 <18.0 mmol/L 03/24/2023 9:29 AM [facility] GLUCOSE 273(H) 70 - 99 mg/dL 03/24/2023 9:29 AM [facility] BUN 9 8 - 26 mg/dL 03/24/2023 9:29 AM [facility] CREATININE, BLOOD 0.79 0.70 - 1.30 mg/dL 03/24/2023 9:29 AM [facility] BUN/CREATININE RATIO 11(L) 12 - 20 ratio 03/24/2023 9:29 AM [facility] TOTAL PROTEIN 6.5 6.3 - 8.2 g/dL 03/24/2023 9:29 AM [facility] ALBUMIN 3.6 3.5 - 5.0 g/dL 03/24/2023 9:29 AM [facility] A/G RATIO 1.2 1.0 - 2.2 03/24/2023 9:29 AM [facility] CALCIUM 8.9 8.7 - 10.5 mg/dL 03/24/2023 9:29 AM [facility] T BILI 1.9(H) 0.2 - 1.2 mg/dL 03/24/2023 9:29 AM [facility] SGOT (AST) 26 5 - 34 U/L 03/24/2023 9:29 AM [facility] SGPT (ALT) 20 0 - 55 U/L 03/24/2023 9:29 AM [facility] ALKALINE PHOSPHATASE 90 40 - 150 U/L 03/24/2023 9:29 AM [facility] GFR, ESTIMATED >60 >=60 03/24/2023 9:29 AM [facility] Comment: Creatinine Clearance is the preferred criteria for selecting drug dose adjustments in renally impaired patients. ??The GFR is provided as additional pertinent clinical information. GFR is reported in mL/min/1.73 sq m. Calculation based on the Chronic Kidney Disease Epidemiology Collaboration (CKD- EPI) equation refit without adjustment for race. GFR, EST. >60 >=60 023 9:29 AM FISH HATCHERY SPECIALIST [facility] GFR, EST. NONAFRICAN >60 >=60 03/24/2023 9:29 AM FISH HATCHERY SPECIALIST [facility] Blood Venipuncture / Unknown 03/24/2023 9:01 AM FISH HATCHERY SPECIALIST 03/24/2023 9:05 AM FISH HATCHERY SPECIALIST us Ac Berger MD CHEMISTRY ORDERABLES Final Resul t [facility] [address] [place] [address] * Pathology Surgical (03/24/2023 8:03 AM FISH HATCHERY SPECIALIST) Case Report Surgical Pathology Report ? Case: [id number] ? Authorizing Provider: ??Ac Berger MD ?Collected: ? 03/24/2023 08:03 AM ? [facility] ? Received: ?03/24/2023 09:32 AM ? [facility] ? Lab Main ? Pathologist: ? Angeles Ward MD PhD ? Specimen: ?Colon, CECAL POLYP ? 03/25/2023 8:20 AM [facility] FINAL DIAGNOSIS Cecal polyp, polypectomy: - Tubular adenoma 03/25/2023 8:20 AM [facility] Pre-Operative Diagnosis Esophageal varices, history of colon polyps 03/25/2023 8:20 AM [facility] Gross Description A. CECAL POLYP The [...] 13 hours, 43 minutes. 03/25/2023 8:20 AM [facility] Microscopic Description Microscopic examination was performed which supports the final diagnosis. All control tissues stained appropriately. 03/25/2023 8:20 AM [facility] Tissue COLON STRUCTURE / Unknown 03/24/2023 8:03 AM FISH HATCHERY SPECIALIST 03/24/2023 9:32 AM FISH HATCHERY SPECIALIST us Ac Berger MD PATHOLOGY/CYTOLOGY ORDERABLES Fi nal Result [facility] [address] [place] [address] * (ABNORMAL) POCT Glucose (03/24/2023 6:41 AM FISH HATCHERY SPECIALIST) GLUCOSE,BEDSID E POCT 254(H) 70 - 99 mg/dL 03/24/2023 6:47 AM FISH HATCHERY SPECIALIST [facility] Comment:Patient RN Performed Blood 03/24/2023 6:41 AM FISH HATCHERY SPECIALIST 03/24/2023 6:47 AM FISH HATCHERY SPECIALIST us None Provider POINT OF CARE TESTING Final Resu lt [facility] [address] [place] [address] * GI LAB IMAGING - EGD (03/24/2023 6:23 AM FISH HATCHERY SPECIALIST) us Ac PATEL DIAGNOSTIC ORDERABLES Final Result * GI IMAGING - COLONOSCOPY (03/24/2023 6:23 AM FISH HATCHERY SPECIALIST) us Ac PATEL DIAGNOSTIC ORDERABLES Final Result [...] PRE-OP (SURGERY) New Bag 03/24/2023 7:28 AM FISH HATCHERY SPECIALIST 20 mL/hr 20 mL/hr ondansetron (ZOFRAN) injection 4 mg 4 mg, Intravenous, ONCE PRN, 1 dose, Starting on Thu03/24/23 at 0623, Until Thu03/24/23 at 1108, Nausea - 1st line, PRE-OP (SURGERY) documented in this encounter Active and Recently Administered Medications Times are shown in FISH HATCHERY SPECIALIST. Continuous Medication Order 03/22/2023 03/23/2023 03/24/2023 lactated ringers infusion at 20 mL/hr, Intravenous, CONTINUOUS, Starting on Thu03/24/23 at 0700, Until Thu03/24/23 at 1108, PRE-OP (SURGERY) 0728 (New Bag - Prov ider: Karina Moreno, BETHANY)0734 (Continued by Anesthesia - Provider: Raffaele Chance APRN, LABORER [employer])0836 (Stopped - Provider: Felicitas Florentino RN) PRN Medication Order 03/22/2023 03/23/2023 03/24/2023 ondansetron (ZOFRAN) injection 4 mg 4 mg, Intravenous, ONCE PRN, 1 dose, Starting on Thu03/24/23 at 0623, Until Thu03/24/23 at 1108, Nausea - 1st line, PRE-OP (SURGERY) documented in this encounter Care Teams Perinatal Director Relationship Specialty Start Date End Date Janeth Pavon, VAL [address] [place] [address] PCP - General Physician Bleach Packer 06/22/18 Riddhi Bello APRN, AREA CAPTAIN [address] [place] [address] Nurse Practitioner Advanced Practice Nurse 02/10/23 documented as of this encounter
--- OUTSIDE RECORDS SUMMARY | 2024-05-08 07:28 | XMS_ITS | Encounter Summary ---
Author Organization [facility] Address [address] [place] [address] Phone Care Team Providers Care Sharples Machine Operator Name Role Phone Braydon Pavon VAL Primary Care Provider [phone] Riddhi Bello APRN, FELT CUTTING MACHINE OPERATOR Unavailable Encounter Details Date Type Department Care Team (Late st Contact Info) Description 05/11/2023 Telephone [facility] - Gastroenterology - [place] [address] [place] [address] Ac Berger MD [address] [address] Social History Tobacco Use Types Packs/Day Years Used Date Smoking Tobacco: Former Cigarettes Q uit: 2002 Smokeless Tobacco: Never Alcohol Use Standard Drinks/Week Comments Not Currently 0 (1 standard drink = 0.6 oz pur e alcohol) Sexually Active Control Partners Comments Yes Female Sex and Gender Information Value Date Recorded Sex Assigned at Not on file Legal Sex Male 10:58 AM DOCK WORKER Gender Identity Not on file Sexual Orientation Not on file documented as of this encounter Miscellaneous Notes * Telephone Encounter - Brianna Sorenson RN - 05/11/2023 9:14 AM DOCK WORKER Letter sent to patient with result note. WORKER * Telephone Encounter - Brianna Sorenson RN - 05/11/2023 9:13 AM DOCK WORKER The patient has not viewed the following result(s) yet. ??Contains abnormal data??CBC with Auto Differential Order: [id number] - Part of Panel Order [id number] Status: Final result ?? Visible to patient: [...] 42.5 MCV 82.0 - 96.0 fL 73.7??Low?? WORKER documented in this encounter Plan of Treatment Not on file documented as of this encounter Visit Diagnoses Not on filedocumented in this encounter Care Teams Sharples Machine Operator Relationship Specialty Start Date End Date Braydon Pavon PAC [address] [place] [address] PCP - General Physician Limousine Rental Clerk 06/22/18 Riddhi Bello APRN, FELT CUTTING MACHINE OPERATOR [address] [place] [address] Nurse Practitioner Advanced Practice Nurse 02/10/23 documented as of this encounter
--- OUTSIDE RECORDS SUMMARY | 2024-05-08 07:28 | XMS_ITS | Encounter Summary ---
Author Organization [facility] Address [address] 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) Procedures OFFICE/OP NEW LVL 3 LOW MDM/30-44 MIN OFFICE/OP EST LVL 3 LOW MDM/20-29 MIN Riddhi Bello, RADHA, CULLET TRUCKER [address] [place] [address] Phone: tel: fax: [facility] [address] [facility] [address] [place] [address] Phone: tel: fax: Referral ID Status Reason Start Date Expiration Date V isits Requested Visits Authorized [id number] Authorized 06/09/2023 1 11 Scheduling Instructions Camilo [...] 180 Tablet, Rfl: 3 Continuous Blood Gluc Communications Administrator (Dexcom G7 Communications Administrator) Device, Check blood glucose before each meal and at bedtime, Disp: 1 Each, Rfl: 0 Continuous Blood Gluc Sensor (Dexcom G7 Sensor) Misc, Change sensor every 10 days., Disp: 9 Each, Rfl: 1 ergocalciferol (VITAMIN D) 65663 UNIT Capsule, Take 50,000 Units by mouth. 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) Procedures GASTRO PROCEDURE Riddhi Bello APRN, CULLET TRUCKER [address] [place] [address] Phone: tel: fax: Referral ID Status Reason Start Date Expiration Date Visits Re quested Visits Authorized [id number] Closed 06/09/2023 1 1 RED CAR GUARD Reason for Visit * Reason Onset Date Comments Results 06/09/2023 Procedure 06/09/2023 Need Order 06/09/2023 Encounter Details Date Type Department Care Team (Late st Contact Info) Description 06/09/2023 Telephone [facility] - Gastroenterology [facility] [address] [place] [address] Riddhi Bello APRN, CULLET TRUCKER [address] [place] [address] Results; Procedure; Need Order Social History Tobacco [...] on file Legal Sex Male 10:58 AM ARMORED CAR GUARD Gender Identity Not on file Sexual Orientation Not on file documented as of this encounter Miscellaneous Notes * Telephone Encounter - Brianna Sorenson RN - 06/09/2023 1:57 PM ARMORED CAR GUARD Patient is aware and verbalizes understanding. Patient reports that he went to [facility] for previous ultrasound of TIPs. Noted on 03/04/2024. Patient is asking about getting the MRI at [facility] with sedation due to he has a pacemaker. No ordernoted per chart review. Reviewed MRI request with Analisa Bello ELECTRICAL DESIGN TECHNICIAN and US of TIPS reviewed. Per Analisa Bello ELECTRICAL DESIGN TECHNICIAN, will await the us TIPS doppler to see what the liver cyst and kidney lesion look like on new US TIPPS then we can make further recommendations. Will place a referral to [facility] hepatology. Called patient, reviewed message above. Patient is aware and verbalizes understanding. External hepatology referral and US doppler of TIPS orders placed. External hepatology and us doppler tips orders and clinical documentation faxed to [facility] fax successful. Referral updated. RED CAR GUARD * Telephone Encounter - Brainna Sorenson RN - 06/09/2023 1:54 PM ARMORED CAR GUARD Images from the original note were not included. ----- Message from Riddhi Bello APRN, CNP sent at 06/01/2023 10:27 AM ARMORED CAR GUARD ----- No fracture to tailbone, just a contusion. Riddhi Bello APRN, CNP 06/02/2023 11:08 AM ARMORED CAR GUARD Back to [facility] was normal. No acute changes Message Received: 1 week ago Riddhi Bello APRN, CNP [facility] Nurse Pool Patient is needing an order for a doppler ultrasound of his TIPs. RED CAR GUARD RED CAR GUARD documented in this encounter Plan of Treatment [...] disease documented in this encounter Care Teams Supervisor Molding Relationship Specialty Start Date End Date Braydon Pavon PAC [address] [place] [id number] PCP - General Physician Rigger Chief 06/22/18 Vikram Mora MD [address] [id number] Consulting Physician Endocrinology 05/21/23 Riddhi Bello APRN, CULLET TRUCKER [address] [place] [address] Nurse Practitioner Advanced Practice Nurse 02/10/23 documented as of this encounter
--- OUTSIDE RECORDS SUMMARY | 2024-05-08 07:28 | XMS_ITS | Encounter Summary ---
Author Organization [facility] Address [address] [place] [address] Phone Care Team Providers Care Staff Nuclear Medicine Technologist Name Role Phone Braydon Pavon Kunal NEAL Primary Care Provider [phone] Riddhi Bello APRN, BENEFITS CONSULTANT Unavailable Reason for Visit * Auth/Cert (Routine) Specialty Diagnoses / Procedures Referred By Jordan casillas Referred To Contact Diagnoses ESOPHAGEAL VARICES, HISTORY OF COLON POLYPS Procedures EGD COLONOSCOPY Referral ID Status Reason Start Date Expiration Date Visits Re quested Visits Authorized [id number] 1 1 Encounter Details Date Type Department Care Team (Late st Contact Info) Description 03/24/2023 6:30 AM COLLAR CUTTER Ancillary Procedure [facility] Main [address] [place] [address] Ac Berger MD 2 [facility] [address] [place] [address] Provider, Anesthesiologist Social History Tobacco Use Types Packs/Day Years Used Date Smoking Tobacco: Former Cigarettes Q uit: 2002 Smokeless Tobacco: Never Alcohol Use Standard Drinks/Week Comments Not Currently 0 (1 standard drink = 0.6 oz pur e alcohol) Sexually Active Control Partners Comments Yes Female Sex and Gender Information Value Date Recorded Sex Assigned at Not on file Legal Sex Male 10:58 AM COLLAR CUTTER Gender Identity Not on file Sexual Orientation [...] IMAGING - EGD Routine 03/24/2023 6:23 AM COLLAR CUTTER documented in this encounter Results * GI LAB IMAGING - EGD (03/24/2023 6:23 AM COLLAR CUTTER) us Ac Berger MD IMG DIAGNOSTIC ORDERABLES Final Result documented in this encounter Visit Diagnoses Not on filedocumented in this encounter Care Teams Staff Nuclear Medicine Technologist Relationship Specialty Start Date End Date Braydon Pavon PAC [address] [place] [address] PCP - General Physician Field Interviewer 06/22/18 Riddhi Bello APRN, BENEFITS CONSULTANT [address] [place] [address] Nurse Practitioner Advanced Practice Nurse 02/10/23 documented as of this encounter
--- OUTSIDE RECORDS SUMMARY | 2024-05-08 07:28 | XMS_ITS | Encounter Summary ---
Author Organization [employer] Care Team Providers Care Financial Operations Consultant Name Role Phone Braydon Pavon Primary Care Provider [phone] Vikram Mora MD Unavailable Riddhi Bello APRN, RADIOLOGIC TECHNOLOGIST CHIEF Unavailable Encounter Details Date Type Department Care [...] on file Legal Sex Male 10:58 AM RUG DRY ROOM ATTENDANT Gender Identity Not on file Sexual Orientation Not on file documented as of this encounter Plan of Treatment Not on file documented as of this encounter Visit Diagnoses Not on filedocumented in this encounter Care Teams Financial Operations Consultant Relationship Specialty Start Date End Date Braydon Pavon PAC [address] [place] [address] PCP - General Physician Zipper Repairer 06/22/18 Vikram Mora MD [address] [address] Consulting Physician Endocrinology 05/21/23 Riddhi Bello APRN, RADIOLOGIC TECHNOLOGIST CHIEF [address] [place] [address] Nurse Practitioner Advanced Practice Nurse 02/10/23 documented as of this encounter
--- OUTSIDE RECORDS SUMMARY | 2024-05-08 07:29 | XMS_ITS | Encounter Summary ---
Author Organization [facility] Address [address] [place] [address] Phone Care Team Providers Care Hand Worker Name Role Phone Braydon Pavon Kunal NEAL Primary Care Provider Riddhi Bello APRN, SHOVEL OILER Unavailable Encounter Details Date Type Department Care Team (Late st Contact Info) Description 02/26/2023 Telephone [facility] - Gastroenterology - [place] [address] [place] [address] Ac Berger MD [address] [address] Social History Tobacco Use Types Packs/Day Years Used Date Smoking Tobacco: Former Cigarettes Q uit: 2002 Smokeless Tobacco: Never Alcohol Use Standard Drinks/Week Comments Not Currently 0 (1 standard drink = 0.6 oz pur e alcohol) Sexually Active Control Partners Comments Yes Female Sex and Gender Information Value Date Recorded Sex Assigned at Not on file 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
--- OUTSIDE RECORDS SUMMARY | 2024-05-08 07:29 | XMS_ITS | Encounter Summary ---
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
--- OUTSIDE RECORDS SUMMARY | 2024-05-08 07:29 | XMS_ITS | Encounter Summary ---
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
--- OUTSIDE RECORDS SUMMARY | 2024-05-08 07:29 | XMS_ITS | Encounter Summary ---
Author Organization [facility] Address [address] 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) Procedures US ABDOMEN LIMITED LEVEL 3 THREE ORGAN Riddhi Bello APRN, CNP [address] [place] [address] Phone: tel: fax: Referral ID Status Reason Start Date Expiration Date Visits Re quested Visits Authorized [id number] Closed 02/10/2023 1 1 Reason for Visit * Radiology Services (Routine) - Closed Specialty Diagnoses / Procedures Referred By Contac t Referred To Contact Radiology Diagnoses 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) Procedures US ABDOMEN LIMITED LEVEL 3 THREE ORGAN Riddhi Bello APRN, CNP [address] [place] [address] Phone: tel: fax: Referral ID Status Reason Start Date Expiration Date Visits Re quested Visits Authorized [id number] Closed 02/10/2023 1 1 Encounter Details Date Type Department Care Team (Late st Contact Info) Description 02/26/2023 8:21 AM CDT - 02/26/2023 11:59 PM CDT Hospital Encounter [facility] Ultrasound 1 [facility] [place] [address] Riddhi Bello APRN, WEAPONS SYSTEM INSTRUMENT MECHANIC [address] [place] [address] Discharge Disposition: Discharged to home or Selfcare [...] on file 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 [...] Subcutaneous route. 11/07/2020 Insulin Pen Needle (Pen Council) 32G X 4 MM Misc Inject 3 [...] Carl Tubbs MD on 03/09/2023 8:09 AM CHIEF ACCOUNTANT ADDENDUM REPORT: ADDENDUM: This addendum report supersedes [...] thickening or pericholecystic fluid. No positive sonographic Conway sign reported. ?? BILIARY: ?? There is [...] AM T: ??03/01/2023 5:46 AM Report ID: [id number] Reading Location: ??[id number] THIS IS AN ELECTRONICALLY VERIFIED FINAL REPORT 03/09/2023 8:07 AM ??Addendum Electronically signed by Kyle KEMP: VIRIDIANA D: ??03/04/2023 4:00 PM T: ??03/04/2023 4:00 PM Report ID: [id number] Reading Location: ??[id number] Impressions 03/01/2023 5:49 AM CDT IMPRESSION: Coarse [...] thickening or pericholecystic fluid. No positive sonographic Conway sign reported. ?? BILIARY: ?? There is [...] AM T: ??03/01/2023 5:46 AM Report ID: [id number] Reading Location: ??[id number] Procedure Note Carl Tubbs MD - 03/01/2023 [...] thickening or pericholecystic fluid. No positive sonographic Conway sign reported. BILIARY: There is no intrahepatic [...] Kyle Tubbs M.D. VIRIDIANA: VIRIDIANA Report ID: [id number] Reading Location: [place] [address] IMPRESSION: Coarse ultrasound architecture in the liver, perhaps due to cirrhosis. No definite mass was seen. Right pelvic kidney. 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
--- OUTSIDE RECORDS SUMMARY | 2024-05-08 07:30 | XMS_ITS | Encounter Summary ---
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
--- OUTSIDE RECORDS SUMMARY | 2024-05-08 07:30 | XMS_ITS | Encounter Summary ---
Author Organization [facility] Address [address] [place] [address] Phone Care Team Providers Care Plant Care Worker Name Role Phone Braydon Pavon Kunal NEAL Primary Care Provider [phone] Riddhi Bello APRN, CRISIS INTERVENTION SPECIALIST Unavailable Encounter Details Date Type Department Care Team (Late st Contact Info) Description 02/12/2023 Telephone [facility] - Gastroenterology - [place] [address] [place] [address] Riddhi Bello APRN, CRISIS INTERVENTION SPECIALIST [address] [place] [address] Social History Tobacco Use Types Packs/Day Years Used Date Smoking Tobacco: Former Cigarettes Q uit: 2002 Smokeless Tobacco: Never Alcohol Use Standard Drinks/Week Comments Not Currently 0 (1 standard drink = 0.6 oz pur e alcohol) Sexually Active Control Partners Comments Yes Female Sex and Gender Information Value Date Recorded Sex Assigned at Not on file 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 Confirmation was obtained. This release was scanned into the Media section of patients chart documented in this encounter Plan of Treatment Not on file documented as of this encounter Visit Diagnoses Not on filedocumented in this encounter Care Teams Plant Care Worker Relationship Specialty Start Date End Date Braydon Pavon PAC [address] [place] [address] PCP - General Physician Soa Integration Architect 06/22/18 Riddhi Bello APRN, CRISIS INTERVENTION SPECIALIST [address] [place] [address] Nurse Practitioner Advanced Practice Nurse 02/10/23 documented as of this encounter
--- OUTSIDE RECORDS SUMMARY | 2024-05-08 07:30 | XMS_ITS | Encounter Summary ---
Author Organization [facility] Address [address] 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) Procedures GASTRO PROCEDURE Riddhi Bello APRN, CNP [address] [place] [address] Phone: tel: fax: Referral ID Status Reason Start Date Expiration Date Visits Re quested Visits Authorized [id number] Closed 02/12/2023 1 1 * Other (Routine) - Closed Specialty Diagnoses / Procedures Referred By Jordan casillas Referred To Contact Gastroenterology Diagnoses History of colon polyps Procedures GASTRO PROCEDURE Riddhi Bello APRN, CNP [address] [place] [address] Phone: tel: fax: Referral ID Status Reason Start Date Expiration Date Visits Re quested Visits Authorized [id number] Closed 02/10/2023 1 1 * Radiology Services (Routine) - Closed Specialty Diagnoses / Procedures Referred By Jordan t Referred To Contact Radiology Diagnoses 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) Procedures US ABDOMEN LIMITED LEVEL 3 THREE ORGAN Riddhi Bello APRN, CNP [address] [place] [address] Phone: tel: fax: Referral ID Status Reason Start Date Expiration Date Visits Re quested Visits Authorized [id number] Closed 02/10/2023 1 1 Reason for Visit * Reason Comments New Patient * Consult, Test & Initiate Treatment (Less Than 4 Weeks) - Closed Specialty Diagnoses / Procedures Referred By Contact Referred To Contact Gastroenterology Diagnoses Acute and subacute hepatic failure without coma Braydon Pavon, [facility] [address] [place] [address] Phone: tel: fax: [facility] - Gastroenterology - [place] [address] [place] [address] Phone: tel: fax: Referral ID Status Reason Start Date Expiration Date Visits Re quested Visits Authorized [id number] Closed 1 1 Encounter Details Date Type Department Care Team (Latest Contact Info) Description 02/10/2023 1:00 PM CDT Office Visit [facility] - Gastroenterology - [place] [address] [place] [address] Riddhi Bello APRN, CNP [address] [place] [address] 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 [...] on file 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 - Insulin Pen Needle (B-D ULTRAFINE III SHORT PEN) 31G X 8 MM Misc - Insulin Pen Needle (B-D ULTRAFINE III SHORT PEN) 31G X 8 MM Misc; 1 Each by Subcutaneous route. - Insulin Pen Needle (Pen [place]) 32G X 4 MM Misc; Inject 3 [...] be ordered and he will go to [facility] to have this done. He is also willing to see the [facility] liver clinic so we will put in [...] cirrhosis. He has previously beinh followed at [facility] liver clinic and was last seen there in 2020. He had to stop seeing them because they did not take his insurance anymore. He then tried to establish with a GI specialist in [facility] but reports that he had a lot [...] ALPRAZolam (XANAX PO) ??? ergocalciferol (VITAMIN D) 97699 UNIT Capsule ??? Glucose Blood Strip ??? HumaLOG KwikPen 100 UNIT/ML Solution Pen-injector ??? hydroCHLOROthiazide 25 MG Tablet ??? Insulin Pen Needle (B-D ULTRAFINE III SHORT PEN) 31G X 8 MM Misc ??? Insulin Pen Needle (B-D ULTRAFINE III SHORT PEN) 31G X 8 MM Misc ??? Insulin Pen Needle (Pen [place]) 32G X 4 MM Misc ??? Insulin [...] EGD and colonoscopy reports Riddhi Bello APRN, LABOR RELATIONS MANAGER This note was transcribed using [employer] speech recognition software. As a result, there [...] Carl Tubbs MD on 03/09/2023 8:09 AM MIDDLE SCHOOL DIRECTOR ADDENDUM REPORT: ADDENDUM: This addendum report supersedes [...] thickening or pericholecystic fluid. No positive sonographic Gridley sign reported. ?? BILIARY: ?? There is [...] AM T: ??03/01/2023 5:46 AM Report ID: [id number] Reading Location: ??[id number] THIS IS AN ELECTRONICALLY VERIFIED FINAL REPORT 03/09/2023 8:07 AM ??Addendum Electronically signed by Kyle KEMP: VIRIDIANA D: ??03/04/2023 4:00 PM T: ??03/04/2023 4:00 PM Report ID: [id number] Reading Location: ??[id number] Impressions 03/01/2023 5:49 AM CDT IMPRESSION: Coarse [...] thickening or pericholecystic fluid. No positive sonographic Gridley sign reported. ?? BILIARY: ?? There is [...] AM T: ??03/01/2023 5:46 AM Report ID: [id number] Reading Location: ??[id number] Procedure Note Carl Tubbs MD - 03/01/2023 [...] thickening or pericholecystic fluid. No positive sonographic Gridley sign reported. BILIARY: There is no intrahepatic [...] Kyle Tubbs M.D. VIRIDIANA: VIRIDIANA Report ID: [id number] Reading Location: [id number] IMPRESSION: Coarse ultrasound architecture in the liver, perhaps due to cirrhosis. No definite mass was seen. Right pelvic kidney. 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)- Primary Other chronic nonalcoholic liver disease History of colon polyps Personal history of colonic polyps Constipation, unspecified constipation type S/P TIPS (transjugular intrahepatic portosystemic shunt) Other postprocedural status Oral bleeding Hemorrhage, unspecified 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
--- OUTSIDE RECORDS SUMMARY | 2024-05-08 07:30 | XMS_ITS | Encounter Summary ---
Author Organization [facility] Address [address] 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 6.2 - 7.0 INTERMEDIATE WELL-CONTROLLED: ??7.0 - 9.0 POORLY-CONTROLLED: ??>9.0 Ying Dueñas SECURITY TECH, SHIP SURVEYOR CHEMISTRY ORDERABLES Fin al Result Performing Organization Address City/[facility]/ZIP Co de Phone Number [facility] [address] [place] [address] * HEMOGLOBIN A1C W/ ESTIMATED GLUCOSE (02/10/2023 12:00 AM CDT) HGB-A1C 11.5 % SCAN 02/10/2023 Ying Dueñas SECURITY TECH, SHIP SURVEYOR CHEMISTRY ORDERABLES Fin al Result SCAN documented in this encounter Visit Diagnoses Diagnosis Diabetes mellitus without complication (HCC)- Primary Type II or unspecified type diabetes mellitus without mention of complication, not stated as uncontrolled documented in this encounter Care Teams Silk Opener Relationship Specialty Start Date End Date Braydon Pavon PAC [address] [place] [address] PCP - General Physician Section Supervisor 06/22/18 Riddhi Bello APRN, SHIP SURVEYOR [address] [place] [address] Nurse Practitioner Advanced Practice Nurse 02/10/23 documented as of this encounter
--- OUTSIDE RECORDS SUMMARY | 2024-05-08 07:30 | XMS_ITS | Encounter Summary ---
Author Organization [facility] Address [address] 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) Procedures GASTRO PROCEDURE Riddhi Bello APRN, CNP [address] [place] [address] Phone: tel: fax: Referral ID Status Reason Start Date Expiration Date Visits Re quested Visits Authorized [id number] Closed 02/17/2023 1 1 Reason for Visit * Reason Onset Date Comments Procedure 02/10/2023 Encounter Details Date Type Department Care Team (Late Contact Info) Description 02/10/2023 Telephone [facility]ology - [place] [address] [place] [phone] Riddhi Bello APRN, GEOLOGICAL SPECIALIST [address] [place] [address] Procedure Social History Tobacco Use Types Packs/Day Years Used Date Smoking Tobacco: Former Cigarettes Q uit: 2002 Smokeless Tobacco: Never Alcohol Use Standard Drinks/Week Comments Not Currently 0 (1 standard drink = 0.6 oz pur e alcohol) Sexually Active Control Partners Comments Yes Female Sex and Gender Information Value Date Recorded Sex Assigned at Not on file 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 EGD order placed. Routing to [facility] for EGD and colonoscopy scheduling. U/s and [...] his TIPS. Patient will not go to [facility] or [facility]. He will go to [facility]. documented in this encounter Plan of Treatment [...] disease documented in this encounter Care Teams Project Administrative Assistant Relationship Specialty Start Date End Date Braydon Pavon PAC [address] [place] [address] PCP - General Physician Brush Clearer Surveying 06/22/18 Riddhi Bello APRN, DOROTHY [address] [place] [address] Nurse Practitioner Advanced Practice Nurse 02/10/23 documented as of this encounter
--- OUTSIDE RECORDS SUMMARY | 2024-05-08 07:34 | XMS_ITS | Encounter Summary ---
Author Organization [facility] Healthcare Address [address] [place] [address] Care Team Providers Care Crayon Painter Name Role Phone Nacho Rodriguez MD Unavailable [phone] Elian Gross MD Unavailable Braydon Pavon Primary Care Provider [phone] Encounter Details Date Type Department Care Team (Late st Contact Info) Description 01/20/2024 Telephone Gastroententerology Charlie North MD [address] [place], [place] [id number] Social History Tobacco Use Types Packs/Day Years [...] on file Legal Sex Male 2:52 PM RFID MANAGER Gender Identity Male 10/29/2020 12:37 PM CDT Sexual Orientation Straight 10/29/2020 12 :37 PM CDT documented as of this encounter Miscellaneous Notes * Telephone Encounter - Charlie North MD - 01/20/2024 10:43 AM CDT On-call contract negotiation manager at [facility] contacted via TC. Pt is at [facility] p/w constant severe diffuse abdominal pain. [...] End Date Braydon Pavon PA [address] [place] [address] PCP - General 08/23/21 [place] [address] [address] [address] Consulting Physician Endocrinology 05/20/21 [place] [address] [address] [facility] [address] [address] Consulting Physician Internal Medicine 05/20/21 documented as of this encounter
--- OUTSIDE RECORDS SUMMARY | 2024-05-08 07:34 | XMS_ITS | Encounter Summary ---
Author Organization [facility] Healthcare Address [address] [place] [address] Care Team Providers Care Canned Food Reconditioning Inspector Name Role Phone Nacho Rodriguez MD Unavailable [phone] Elian Gross MD Unavailable Braydon Pavon Primary Care Provider [phone] Reason for Visit * Reason Comments Abdominal Pain * Auth/Cert (Routine) Specialty Diagnoses / Procedures Referred By Contac t Referred To Contact Diagnoses RUQ abdominal pain Procedures NA Referral ID Status Reason Start Date Expiration Date Visits Re quested Visits Authorized [id number] 1 1 Encounter Details Date Type Department Care Team (Late st Contact Info) Description 01/19/2024 11:31 PM CDT - 01/20/2024 2:39 PM CDT Emergency [facility] Emergency Department [address] [place] [address] Giuseppe Pace MD [address] [place] [address] Ramírez Rae MD PhD [address] [place] [address] RUQ abdominal pain (Primary Dx); Liver cirrhosis [...] file Legal 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 [facility] an [facility] for [...] a day with meals 3 Dexcom G6 Wetland Scientist misc 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 Use to [...] created with voice recognition software. Occasional wrong-wordor ???cbgob-w-afeb??? substitutions may have occurred due to the [...] the following long-term medication(s): alprazolam, dexcom g6 freight brakeman, dexcom g6 sensor, dexcom g6 transmitter, hydrochlorothiazide, [...] of breast - Relation: Grandmother (Added by [facility] ([facility] Conv) ??? Stomach cancer Other Family history of malignant neoplasm of stomach - Relation: Grandmother (Added by [employer] [facility] (PGD) Conv) ??? Heart attack Other Family history of myocardial infarction - Relation: Grandmother (Added by [employer] [facility] (PGD) Conv) ??? Hypertension Other Family history of hypertension - Relation: Grandmother (Added by [employer] [facility] ([facility]D) Conv) Social History Social History Narrative ??? [...] from 11/23/2023 from outside ER Socioeconomic considerations: Eoyufjm-vccrymdo-nkeece summation: Camilo Curry is a 53 y.o. [...] high-sensitivity ??? DO NOT UNCHECK - ED marketing coordinator Standing Order: Abdominal Pain ??? Consult to [...] persistent nature of symptoms does suggest the ak ed for additional workup. By: Giuseppe Pace [...] By: Ramírez Rae MD PhD Time: 01/19 0753 Comment: Attempted to call both hospitalist on coming as well as new a.mMendez GI consult. Awaiting to hear back from both. By: Ramírez Rae MD PhD Time: 01/20 0868 Comment: Discussed with GI regarding additional workup. They recommend MRI of the abdomen. Unfortunately the patient has severe phobia associated with tight spaces and will need sedation By: Giuseppe Pace MD Time: 01/19 0888 Comment: Still awaiting call back from hospitalist team. By: Ramírez Rae MD PhD Time: 01/19 0804 Comment: Discussed with hospitalist. Agrees with plan for admission and sedated MRI to evaluate forhepatic and portal vein thrombosis or failed tips . By: Ramírez Rae MD PhD Time: 01/19 3744 Comment: Dr. North at [facility] has accepted pt. By: Ramírez Rae [...] sinus rhythm with a rate of 84. Stanton normal. There is no ST deviation. T- [...] tendency for uric acid stone formation. Source: [facility] FlyClip Current Interpretive Data was last revised on [...] - NERAL ORDERABLES Final Result MOHINDER LITTLECH [address] [facility]. Department [place] [address] * (ABNORMAL) POCT glucose (01/20/2024 10:23 AM CDT) Glucose, POC 247(H) 70 - 199 mg/dL Comment: Interpretive Data Glucose is assumed to be non-fasting. Fasting Glucose reference ranges are: 0 - 150 years: ??70 mg/dL - 99 mg/dL Current interpretive data was last revised on 2014. POC Performer [id number] [employer] POC Device Number [id number] MOHINDER MICHELW Blood 01/20/2024 10:2 3 AM CDT 01/20/2024 10:23 AM CDT Ramírez Rae MD PhD LAB POCT ORDERABLE S - DEVICE Final Result Performing Organization Address [facility] [address] [facility] de Phone Number [facility] [address] [facility] [place] [address] * (ABNORMAL) POCT glucose (01/20/2024 3:00 AM CDT) Glucose, POC 341(H) 70 - 199 mg/dL Comment: Interpretive Data Glucose is assumed to be non-fasting. Fasting Glucose reference ranges are: 0 - 150 years: ??70 mg/dL - 99 mg/dL Current interpretive data was last revised on 2014. POC Performer [id number] [facility] POC Device Number [id number] [facility] Blood 01/20/2024 3:00 AM CDT 01/20/2024 3:00 AM CDT us Giuseppe Pace MD LAB POCT ORDERABLES - DEVICE Final Result Performing Organization Address [facility] [address]/[facility] Co de Phone Number [facility] [address] [facility] [place] [address] * US Liver Doppler Complete [...] sinus rhythm with a rate of 84. ??Stanton normal. ??There is no ST deviation. ??T-waves [...] sinus rhythm with a rate of 84. Stanton normal. There is no STdeviation. T- waves [...] ORDERABLES Final Result Performing Organization Address [facility] [address]/[facility] Co de Phone Number MOHINDER LITTLECH [address] [facility] [place] [address] * (ABNORMAL) Ammonia (01/20/2024 12:19 AM CDT) Ammonia 104(H) <=50 mcmol/L Blood 01/20/2024 12:1 9 AM CDT 01/20/2024 12:23 AM CDT Giuseppe Pace MD LAB BLOOD ORDERABLES Final Result Performing Organization Address [facility] Phone Number MOHINDER MICHELWCH [address] [facility] [place] [address] * CT Abdomen Pelvis WO Contrast (01/20/2024 [...] with liver Doppler. Preliminary report dictated by rehabilitation manager teleradiologist, Dr. Pancho Covarrubias. Dictated by: Neeraj [...] with liver Doppler. Preliminary report dictated by rehabilitation manager teleradiologist, Dr. Pancho Covarrubias. Dictated by: Neeraj [...] MD LAB BLOOD ORDERABLES Final Result [facility] [address] [facility]. Department [place] [address] * (ABNORMAL) Differential, auto (01/19/2024 10:31 PM [...] ORDERABLES Final Result Performing Organization Address [facility] [address]/[facility] Co de Phone Number [facility] [address] [facility] [place] [address] * Lipase (01/19/2024 10:31 PM CDT) Lipase 19 10 - 99 Units/L Blood (Blood, Venous) 01/19/2024 10:31 PM CDT 01/19/2024 10:33 PM CDT Giuseppe Pace MD LAB BLOOD ORDERABLES Final Result Performing Organization Address [facility] [address]/ZIP Co de Phone Number [facility] [address] [employer]. [facility] [place] [address] * (ABNORMAL) Comprehensive metabolic panel (01/19/2024 10:31 [...] LAB BLOOD ORDERABLES Final Result MOHINDER WARD [address] [facility]. Department [place] [address] * (ABNORMAL) CBC with auto differential (01/19/2024 10:31 PM CDT) WBC 4.0 3.8 - 9.9 K/cumm Hgb 15.4 13.0 - 17.5 g/dL [facility] Hct 44.4 38.9 - 50.3 % [facility] Plt 80(L) 150 - 400 K/cumm [facility] MPV 11.2 9.1 - 12.3 fL [facility] RBC 5.28 4.30 - 5.80 M/cumm [facility] MCV 84.1 81.3 - 96.4 fL [facility] MCH 29.2 27.1 - 33.3 pg [facility] W MCHC 34.7 32.3 - 35.7 g/dL [facility] BJWCH RDW CV 18.0(H) 11.1 - 14.9 % [facility] RDW SD 52.4(H) 35.7 - 48.1 fL [facility] NRBC abs 0.02(H) 0.00 - 0.01 K/cumm [facility] BJW Blood (Blood, Venous) 01/19/2024 10:31 PM CDT 01/19/2024 10:33 PM CDT Giuseppe Pace MD LAB BLOOD ORDERABLES Final Result Performing Organization Address [facility] [address]/ZIP Co de Phone Number MOHINDER LITTLECH [address] [employer]. 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 [address] [place], [place] [id number] Consulting Physician Endocrinology 05/20/21 [place] [address] [facility] [address] [address] Consulting Physician Internal Medicine 05/20/21 documented as of this encounter
--- OUTSIDE RECORDS SUMMARY | 2024-05-08 07:34 | XMS_ITS | Referral Summary ---
Author Organization [facility] Address [address] [place] [address] Care Team Providers Care Promotion Manager Name Role Phone Nacho Rodriguez MD Unavailable [phone] Elian Gross MD Unavailable Braydon Pavon Primary Care Provider [phone] Allergies Active Allergy Reactions Criticality Noted Date [...] 1 each 05/21/19 22 Active Dexcom G6 Merchant Patroller misc 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 Use to [...] 05/20/2021 Assessment & Plan (05/22/2021 3:58 PM CONTACT LENS INSPECTOR): A initial well visit to establish care [...] unless otherwise indicated. Need follow-up arranged with floor installation mechanic, movers Planning on referral to painter assistant Will need to check in to the tips follow-up Labs as ordered today, I will direct the A1 c to his movers's office. Continuing the current regimen for now. Blood pressure is controlled at this time. We may need to try to get the stress test done as well. Screen for colon cancer 03/01/2021 Overview (03/01/2021): Added automatically from request for surgery [id number] Diabetic neuropathy associat ed with type 2 diabetes mellitus ([facility]) 10/29/2020 Assessment & Plan (10/29/2020 4:23 PM CDT): Chronic, worsening Start, gabapentin therapy Work on better diabetic control Vitamin D deficiency 10/29/2020 Assessment & Plan (10/29/2020 4:23 PM CDT): Check labs and based on that for the plans Bacterial endocarditis 05/14/2020 Assessment & Plan (05/14/2020 11:09 AM CONTACT LENS INSPECTOR): Unfortunately the patient's records from [place] are not available for my review. We [...] 05/14/2020 Assessment & Plan (05/14/2020 11:11 AM CONTACT LENS INSPECTOR): The patient's dyspnea on exertion is likely [...] weekly - start checking blood sugars Using Jam[employer] nikki 2 sensors - work on portion control diet, exercise every day - Get eye exam soon - do labs - fasting - follow up in 6 weeks with [facility] Chelsea Driscoll ( to discuss about insulin [...] resume home regimen and follow-up with home movers MATHEUS pain 10/11/2017 Morbid obesity 12/09/2016 TRACY [...] on file Legal Sex Male 2:52 PM CONTACT LENS INSPECTOR Gender Identity Male 10/29/2020 12:37 PM [...] on file Medical Devices Implanted Type Area Theater Usher Device Identifier Shelf Expiration Date Model / Serial / Lot Bard Peripheral Vascular [id number] Lifestar 14mm 60mm 80cm Stent Biliary - [id number] Implanted:Qty: 1 on 01/10/2021 at [facility] [employer] Peripheral Vascular 09/15/2023 [id number] / / [id number] Procedures Procedure Name Priority Date/Time Associated Diagnosis Comments EGFR STAT 01/19/2024 10:31 PM CDT HEMOGLOBIN A1C STAT 11/23/2023 8:40 AM CDT LIPID PANEL Routine 05/20/2021 9:36 AM CONTACT LENS INSPECTOR Morbid obesity with body mass index (BMI) of 40.0 to 44.9 in adult (HCC) ALBUMIN CREATININE RATIO, URINE Routine 05/20/2021 9:36 AM CONTACT LENS INSPECTOR Diabetic neuropathy associated with type 2 diabetes [...] BLOOD ORDERABLES Final Result Performing Organization Address City/[facility] Co de Phone Number MOHINDER MICHELCH [address] [facility] Department [place] [address] * (ABNORMAL) Hemoglobin A1c (11/23/2023 8:40 AM CDT) [facility] Signature Hgb A1C 10.0(H) 4.0 - 5.6 % Estimated Average Glucose 240 mg/dL [facility] Comment: The ADA recommends reporting an estimated [...] ORDERABLES Fi nal Result Performing Organization Address City/[facility]/ZIP Co de Phone Number MOHINDER MICHEL [facility] Department [place] [address] * Albumin Creatinine Ratio, Urine (05/20/2021 9:36 AM CONTACT LENS INSPECTOR) Albumin Ur <12.0 mg/L MOHINDER Comment: Interpretive Data No reference range established. Current interpretive data was last revised 2018. Creatinine Ur 47.6 mg/dL MOHINDER Comment: Interpretive Data No reference range established. Current interpretive data was last revised 2018. Albumin Creatinine Ratio, Ur <25 1 - 29 mg/g [facility] Urine 05/20/2021 9:36 AM CONTACT LENS INSPECTOR 05/20/2021 7:41 PM CONTACT LENS INSPECTOR us Simon Lundberg MD LAB URINE ORDERABLES Final Result [facility] [address] [address] Department [place] [address] * (ABNORMAL) Lipid panel (05/20/2021 9:36 AM CONTACT LENS INSPECTOR) Cholesterol 110 30 - 199 mg/dL [facility] Comment: Interpretive Data Ages < or = [...] ratio 3 MOHINDER Blood 05/20/2021 9:36 AM CONTACT LENS INSPECTOR 05/20/2021 7:41 PM CONTACT LENS INSPECTOR us Simon Lundberg MD LAB BLOOD ORDERABLES Final Result MOHINDER [address] [address] Department [place] [address] * COLONOSCOPY (12/17/2020 10:24 AM CDT) Anatomical Region Laterality Modality Other Narrative Procedure Note Elian Gross MD - 12/17/2020 10:24 AM CDT ENDOSCOPY LAB Patient Name: Camilo Curry Procedure Date: 12/17/2020 10:24 AM Date of : 1970 Admit Type: Outpatient Age: 50 Gender: Male Attending MD: Elian Vivar M.D. Room: [facility] ENDOSCOPY ROOM 02 Note Status: Finalized [...] the physician, the nurse, the anesthesiologist, the forensic anthropologist and thetechnician in the pre-procedure area in [...] The scope was passed under direct vision.The [id number] was introduced through the anusand advanced to the hepatic flexure. The colonoscopywas performed without difficulty. The patient tolerated the procedure well. The quality of the bowel preparation was unsatisfactory. The quality of the bowel preparation was evaluated using the BBPS([place] Bowel Preparation Scale) with scores of: RightColon [...] 12/17/2020 10:24 AM Elian Draper MD ENDOSCOPY CA OCEDURES Final Result * Serum Hepatitis panel (08/23/2015 5:23 PM CDT) HBV surface ag Negative NEG HISTO RICAL RESULTS HCV ab Negative NEG HISTORICAL RESULTS Comment: Interpretive Data If confirmation is required, call Laboratory Customer Service to request sample to be sent to [facility] for Hepatitis C Virus (HCV) RNA Detection and Quantitation by Real-Time Reverse Android Framework Developer-PCR (RT-PCR). Current interpretive data was last revised [...] Recently Relevant to Health Maintenance Insurance A[facility]NA [facility] AETNA [facility] AETNA [facility] Advance Directives For more information, please contact: [phone] * Full Code (Latest Code Status on [...] 11:57 AM 02/03/2018 5:26 AM Care Teams Promotion Manager Relationship Specialty Start Date End Date Braydon Pavon PA [address] [place] [address] PCP - General 08/23/21 [place] [address] [address] [address] Consulting Physician Endocrinology 05/20/21 [place] [address] [address] [address] Consulting Physician Internal Medicine 05/20/21
--- OUTSIDE RECORDS SUMMARY | 2024-05-08 07:34 | XMS_ITS | Continuity of Care Document ---
Author Organization [facility] Address [address] [place] [address] Phone Care Team Providers Care Bridal Gown Fitter Name Role Phone Roosevelt Mcgee MD Unavailable Unavailable Allergies, Adverse Reactions, Alerts Substance Reaction Status Criticality CIPROFLOXACIN HCL Active No Informa tion ciprofloxacin Active No Information erythromycin base Active No Informa tion Sulfa (Sulfonamide Antibiotics) Active No Information PENICILLIN Active No Information Medications Medication Instructions Dosage Effective Dates (start - stop) Status Comments Paxil 20 mg tablet take 1 tablet by oral route every day 20 MG - Active Lantus 100 unit/mL subcutaneous solution inject by subcutaneous route as per insulin protocol 0.00 - Active 130 units Tradjenta 5 mg tablet take 1 tablet by oral route every day 5 MG - Active [place] 10 mg-325 mg tablet take 1 tablet by oral route every 6 hours as needed for pain - Active PRN for pain, avoid driving or operatse machines Procedures Procedure Date OFFICE/OUTPATIENT VISIT, EST Advance Directives Directive Yes / No Effective Date File Name No Information Encounters Encounter Description Practice Location Reason(s) For Visit Diagnoses Date Provider Providers Copied on Encounter OFFICE/OUTPA TIENT VISIT, EST [facility], [address] [place], [address], [place] tel:[phone] [facility] anxiety1 (chief complaint) DM (chief complaint) liver cirrhosis (chief complaint) GERD1 (chief complaint) chronic pain (chief complaint) Type 2 diabetes mellitus without complicationsGenera lized Anxiety DisorderOther cirrhosis of liverChronic pain syndrome 2-201 [address] [place], [address]. tel:[phone] Referring Provider: Tom Gaines [address], [place], [address]. tel:[phone] Family History Family Member Type Diagnosis Age [...] takes lantus, tradejnta, humalog. His BG is [id number]. Pt sees endo for his DM. Pt [...] Mental Status Date Cognitive Assessment Orientation - [place] ed to time, place, person, situation.
--- OUTSIDE RECORDS SUMMARY | 2024-05-08 07:34 | XMS_ITS | Clinical Summary ---
Author Organization [facility] Address [address] [place] [address] Care Team Providers Care Advanced Clinical Specialist Name Role Phone Nacho Rodriguez MD Unavailable [phone] Elian Gross MD Unavailable Braydon Pavon Primary Care Provider [phone] Allergies Active Allergy Reactions Criticality Noted Date [...] 1 each 05/21/19 22 Active Dexcom G6 Customer Service Attendant misc 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 Use to [...] 05/20/2021 Assessment & Plan (05/22/2021 3:58 PM MOTOR TEACHER): A initial well visit to establish care [...] unless otherwise indicated. Need follow-up arranged with bean picker, extended day teacher Planning on referral to rail car painter/sandblaster Will need to check in to the tips follow-up Labs as ordered today, I will direct the A1 c to his extended day teacher's office. Continuing the current regimen for now. Blood pressure is controlled at this time. We may need to try to get the stress test done as well. Screen for colon cancer 03/01/2021 Overview (03/01/2021): Added automatically from request for surgery [id number] Diabetic neuropathy associat ed with type 2 diabetes mellitus ([facility]) 10/29/2020 Assessment & Plan (10/29/2020 4:23 PM CDT): Chronic, worsening Start, gabapentin therapy Work on better diabetic control Vitamin D deficiency 10/29/2020 Assessment & Plan (10/29/2020 4:23 PM CDT): Check labs and based on that for the plans Bacterial endocarditis 05/14/2020 Assessment & Plan (05/14/2020 11:09 AM MOTOR TEACHER): Unfortunately the patient's records from [facility] are not available for my review. We [...] 05/14/2020 Assessment & Plan (05/14/2020 11:11 AM MOTOR TEACHER): The patient's dyspnea on exertion is likely [...] weekly - start checking blood sugars Using PromoltastTeedot nikki 2 sensors - work on portion control diet, exercise every day - Get eye exam soon - do labs - fasting - follow up in 6 weeks with SYRUP FILTERER Chelsea Driscoll ( to discuss about insulin [...] resume home regimen and follow-up with home extended day teacher MATHEUS pain 10/11/2017 Morbid obesity 12/09/2016 TRACY [...] on file Legal Sex Male 2:52 PM MOTOR TEACHER Gender Identity Male 10/29/2020 12:37 PM [...] Completed 08/23/2015 Medical Devices Implanted Type Area Rifle Case Repairer Device Identifier Shelf Expiration Date Model / Serial / Lot [employer] Peripheral V[employer] [id number] Lifestar 14mm 60mm 80cm Stent Biliary - [id number] Implanted:Qty: 1 on 01/10/2021 at [facility] [employer] 09/15/2023 [id number] / / [id number] Procedures Procedure Name Priority Date/Time Associated Diagnosis Comments EGFR STAT 01/19/2024 10:31 PM CDT HEMOGLOBIN A1C STAT 11/23/2023 8:40 AM CDT LIPID PANEL Routine 05/20/2021 9:36 AM MOTOR TEACHER Morbid obesity with body mass index (BMI) of 40.0 to 44.9 in adult (HCC) ALBUMIN CREATININE RATIO, URINE Routine 05/20/2021 9:36 AM MOTOR TEACHER Diabetic neuropathy associated with type 2 diabetes [...] Pace MD LAB BLOOD ORDERABLES Final Result [facility] [address] [facility]. Department [place] [address] * (ABNORMAL) Hemoglobin A1c (11/23/2023 [...] ORDERABLES Fi nal Result Performing Organization Address City/[facility] Co de Phone Number MOHINDER MICHELH [facility] Department [place] [address] * Albumin Creatinine Ratio, Urine (05/20/2021 9:36 AM MOTOR TEACHER) Albumin Ur <12.0 mg/L MOHINDER MRATINEZ Comment: Interpretive Data No reference range established. Current interpretive data was last revised 2018. Creatinine Ur 47.6 mg/dL MOHINDER Comment: Interpretive Data No reference range established. Current interpretive data was last revised 2018. Albumin Creatinine Ratio, Ur <25 1 - 29 mg/g MOHINDER Urine 05/20/2021 9:36 AM MOTOR TEACHER 05/20/2021 7:41 PM MOTOR TEACHER Simon Lundberg MD LAB URINE ORDERABLES Final Result Performing Organization Address [facility] de Phone Number MOHINDER [address] [facility] Department [place] [address] * (ABNORMAL) Lipid panel (05/20/2021 9:36 AM MOTOR TEACHER) Cholesterol 110 30 - 199 mg/dL MOHINDER [...] ratio 3 MOHINDER Blood 05/20/2021 9:36 AM MOTOR TEACHER 05/20/2021 7:41 PM MOTOR TEACHER Simon Lundberg MD LAB BLOOD ORDERABLES Final Result MOHINDER [address] [address] Department [place] [address] * COLONOSCOPY (12/17/2020 10:24 AM CDT) Anatomical Region Laterality Modality Other Narrative Procedure Note Elian Gross MD - 12/17/2020 10:24 AM CDT ENDOSCOPY LAB Patient Name: Camilo Curry Procedure Date: 12/17/2020 10:24 AM Date of : 1970 Admit Type: Outpatient Age: 50 Gender: Male Attending MD: Elian Vivar M.D. Room: [facility] ENDOSCOPY ROOM 02 Note Status: Finalized [...] the physician, the nurse, the anesthesiologist, the production metal sprayer and thetechnician in the pre-procedure area in [...] The scope was passed under direct vision.The [id number] was introduced through the anusand advanced to the hepatic flexure. The colonoscopywas performed without difficulty. The patient tolerated the procedure well. The quality of the bowel preparation was unsatisfactory. The quality of the bowel preparation was evaluated using the BBPS(Hampton Bowel Preparation Scale) with scores of: RightColon [...] MD ENDOSCOPY WI OCEDURES Final Result * Serum Hepatitis panel (08/23/2015 5:23 PM CDT) HBV surface ag Negative NEG HISTO RICAL RESULTS HCV ab Negative NEG HISTORICAL RESULTS Comment: Interpretive Data If confirmation is required, call Laboratory Customer Service to request sample to be sent to [facility] for Hepatitis C Virus (HCV) RNA Detection and Quantitation by Real-Time Reverse Special Investigation Unit Investigator-PCR (RT-PCR). Current interpretive data was last revised [...] Advance Directives For more information, please contact: [phone] * Full Code (Latest Code Status on [...] 11:57 AM 02/03/2018 5:26 AM Care Teams Advanced Clinical Specialist Relationship Specialty Start Date End Date Braydon Pavon PA [address] [place] [address] PCP - General 08/23/21 [place] [address] [address] [address] Consulting Physician Endocrinology 05/20/21 [place] [address] [address] Consulting Physician Internal Medicine 05/20/21
--- OUTSIDE RECORDS SUMMARY | 2024-05-08 07:34 | XMS_ITS | Encounter Summary ---
Author Organization [facility] Address [address] [place] [address] Care Team Providers Care Rn Labor Delivery Name Role Phone Nacho Rodriguez MD Unavailable [phone] Elian Gross MD Unavailable Braydon Pavon Primary Care Provider [phone] Reason for Visit * Reason Comments Multiple Medical Complaints Encounter Details Date Type Department Care Team (Late st Contact Info) Description 11/23/2023 8:17 AM CDT - 11/23/2023 1:13 PM CDT Emergency [facility] Emergency Department [address] [place] [address] Stephen Buckner MD [address] [place] [address] Type 2 diabetes mellitus with [...] on file Legal 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 Use to [...] arrival: Comments: - Leila Vicente RN 11/23/23 5840 * Charlee Holden MD - 11/23/2023 8:21 [...] and Affect: Mood normal. Behavior: Behavior normal. [facility] Medical Decision Making Amount and/or Complexity [...] ability to follow up with his [employer] clinical data research at [facility] but does have access to a liver doctor at [facility] in [place]. On exam he is nonicteric. Abdomen is [...] (CMS/HCC) (HCC) Charlee Holden MD Resident 11/23/23 [id number] Cosigned by Stephen Buckner MD at 11/24/2023 [...] Glucose comment 1 Glu2: RN/ Notified MOHINDER MCIHEL Blood 11/23/2023 12:0 8 PM CDT 11/23/2023 12:08 PM CDT us Stephen Buckner MD LAB POCT ORDERABLES - D EVICE Final Result [facility] Department [place] [address] * US Liver W Complete Doppler (C) [...] POCT ketone, blood (11/23/2023 8:53 AM CDT) [facility] Ketones, Blood, POC 0.2 0.0 - 0.5 mmol/L Blood 11/23/2023 8:53 AM CDT 11/23/2023 8:53 AM CDT us Notinfile Unknown LAB POCT ORDERABLES - DEVICE F inal Result MOHINDER [facility] Department [place] [address] * (ABNORMAL) Lactate dehydrogenase (LD) (11/23/2023 8:40 AM CDT) Lactate dehydrogenase (LDH) 409(H) 100 - 250 Units/L Blood 11/23/2023 8:40 AM CDT 11/23/2023 8:52 AM CDT Stephen Buckner MD LAB BLOOD ORDERABLES Fi nal Result Performing Organization Address [facility] Co de Phone Number [facility] Department [place] [address] * (ABNORMAL) Haptoglobin (11/23/2023 8:40 AM CDT) [facility] Haptoglobin <10.0(L) 30.0 - 200.0 mg/dL Blood 11/23/2023 8:40 AM CDT 11/23/2023 8:52 AM CDT Stephen Buckner MD LAB BLOOD ORDERABLES Fi nal Result Performing Organization Address [facility] de Phone Number [facility] Department [place] [address] * (ABNORMAL) Hepatic function panel (11/23/2023 8:40 AM CDT) Pathologist [facility] Bilirubin, total 3.0(H) 0.1 - 1.2 mg/dL Bilirubin, direct 0.3 0.1 - 0.3 mg/dL [facility] Protein, pl 7.4 6.5 - 8.5 g/dL [facility] Albumin 4.0 3.5 - 5.0 g/dL [facility] Alk phos 82 40 - 130 Units/L [facility] ALT 18 7 - 55 Units/L [facility] AST 30 10 - 50 Units/L [facility] Blood 11/23/2023 8:40 AM CDT 11/23/2023 8:52 AM CDT Stephen Buckner MD LAB BLOOD ORDERABLES Fi nal Result Performing Organization Address [facility]/ZIP Co de Phone Number [facility] Department [place] [address] * (ABNORMAL) Hemoglobin A1c (11/23/2023 8:40 AM CDT) [facility] Hgb A1C 10.0(H) 4.0 - 5.6 % Estimated Average Glucose 240 mg/dL [facility] Comment: The ADA recommends reporting an estimated [...] ORDERABLES Fi nal Result Performing Organization Address City/State/[facility] Co de Phone Number [facility] Department [place] [address] * eGFR (11/23/2023 8:40 AM CDT) [facility] eGFR >90 >=60 mL/min/1. 73 m2 [...] MD LAB BLOOD ORDERABLES Fi nal Result [facility] Department [place] [address] * (ABNORMAL) Differential, auto (11/23/2023 8:40 AM CDT) Neutrophil abs 2.0 1.5 - 6.5 K/cumm Imm gran abs 0.0 0.0 - 0.1 K/cumm [facility] Lymphocyte abs 0.7(L) 0.8 - 3.3 K/cumm [facility] Monocyte abs 0.4 0.2 - 0.8 K/cumm [facility] Eosinophil abs 0.2 0.0 - 0.5 K/cumm [facility] Basophil abs 0.0 0.0 - 0.1 K/cumm [facility] Neutrophil pct 59.1 % [facility] Comment: Interpretive Data Percent cell count reference ranges are not reported, since discordance with absolute values may lead to misinterpretation of CBC data. Current Interpretive Data was last revised on 2017. Imm gran pct 0.6 % [facility] Comment: Interpretive Data Percent cell count reference ranges are not reported, since discordance with absolute values may lead to misinterpretation of CBC data. Current Interpretive Data was last revised on 2017. Lymphocyte pct 21.5 % [facility] Comment: Interpretive Data Percent cell count reference ranges are not reported, since discordance with absolute values may lead to misinterpretation of CBC data. Current Interpretive Data was last revised on 2017. Monocyte pct 11.8 % [facility] Comment: Interpretive Data Percent cell count reference ranges are not reported, since discordance with absolute values may lead to misinterpretation of CBC data. Current Interpretive Data was last revised on 2017. Eosinophil pct 5.8 % [facility] Comment: Interpretive Data Percent cell count reference ranges are not reported, since discordance with absolute values may lead to misinterpretation of CBC data. Current Interpretive Data was last revised on 2017. Basophil pct 1.2 % [facility] Comment: Interpretive Data Percent cell count reference ranges are not reported, since discordance with absolute values may lead to misinterpretation of CBC data. Current Interpretive Data was last revised on 2017. Blood 11/23/2023 8:40 AM CDT 11/23/2023 8:52 AM CDT Stephen Buckner MD LAB BLOOD ORDERABLES nal Result [facility] Department [place] [address] * (ABNORMAL) CBC with auto differential (11/23/2023 8:40 AM CDT) WBC 3.3(L) 3.8 - 9.9 K/cumm Hgb 15.3 13.0 - 17.5 g/dL [facility] Hct 43.4 38.9 - 50.3 % [facility] Plt 81(L) 150 - 400 K/cumm [facility] MPV 10.4 9.1 - 12.3 fL [facility] RBC 5.56 4.30 - 5.80 M/cumm [facility] MCV 78.1(L) 81.3 - 96.4 fL [facility] MCH 27.5 27.1 - 33.3 pg [facility] MCHC 35.3 32.3 - 35.7 g/dL [facility] RDW CV 18.2(H) 11.1 - 14.9 % [facility] RDW SD 47.4 35.7 - 48.1 fL [facility] NRBC abs 0.00 0.00 - 0.01 K/cumm [facility] Blood 11/23/2023 8:40 AM CDT 11/23/2023 8:52 AM CDT us Stephen Buckner MD LAB BLOOD ORDERABLES Fi nal Result [facility] Department [place] [address] * (ABNORMAL) Comprehensive metabolic panel (11/23/2023 8:40 AM CDT) Sodium 137 135 - 145 mmol/L Potassium, pl 4.2 3.3 - 4.9 mmol/L [facility] Chloride 102 97 - 110 mmol/L [facility] CO2 25 22 - 32 mmol/L [facility] Anion gap 10 2 - 15 mmol/L [facility] BUN 14 6 - 25 mg/dL [facility] Creatinine 0.78(L) 0.80 - 1.30 mg/dL [facility] Glucose 379(H) 70 - 199 mg/dL [facility] Comment: Interpretive Data Fasting glucose >/= 126 [...] 2022. Calcium 9.7 8.5 - 10.3 mg/dL [facility] Bilirubin, total 3.0(H) 0.1 - 1.2 mg/dL [facility] Protein, pl 7.4 6.5 - 8.5 g/dL [facility] Albumin 4.0 3.5 - 5.0 g/dL [facility] Alk phos 82 40 - 130 Units/L [facility] ALT 18 7 - 55 Units/L [facility] AST 30 10 - 50 Units/L [facility] Blood 11/23/2023 8:40 AM CDT 11/23/2023 8:52 AM CDT us Stephen Buckner MD LAB BLOOD ORDERABLES Fi nal Result Performing Organization Address [facility] de Phone Number [facility] Department [place] [address] * (ABNORMAL) POCT glucose (11/23/2023 8:36 AM CDT) Glucose, POC 360(H) 70 - 199 mg/dL Blood 11/23/2023 8:36 AM CDT 11/23/2023 8:36 AM CDT us Notinfile Unknown LAB POCT ORDERABLES - DEVICE F inal Result Performing Organization Address [facility] de Phone Number [facility] Department [place] [address] * (ABNORMAL) POCT glucose (11/23/2023 8:26 AM CDT) Glucose, POC 434(H) 70 - 199 mg/dL Comment:Glu2: RN/MD Notified Glucose comment 1 Glu2: RN/MD Notified [facility] Blood 11/23/2023 8:26 AM CDT 11/23/2023 8:26 AM CDT us Notinfile Unknown LAB POCT ORDERABLES - DEVICE F inal Result Performing Organization Address [facility] de Phone Number [facility] [place] [address] * (ABNORMAL) POCT glucose (11/23/2023 8:02 AM CDT) Glucose, POC 361(H) 70 - 199 mg/dL Blood 11/23/2023 8:02 AM CDT 11/23/2023 8:02 AM CDT us Notinfile Unknown LAB POCT ORDERABLES - DEVICE F inal Result MOHINDER MICHEL [facility] Department [place] [address] documented in this encounter Visit Diagnoses Diagnosis [...] 11/23/2023 documented in this encounter Care Teams Rn Labor Delivery Relationship Specialty Start Date End Date Braydon Pavon PA [address] [place] [address] PCP - General 08/23/21 [place] [address] [address], [place] [address] Consulting Physician Endocrinology 05/20/21 [place] [address] [address] [place] [address] Consulting Physician Internal Medicine 05/20/21 documented as of this encounter
--- OUTSIDE RECORDS SUMMARY | 2024-05-08 07:35 | XMS_ITS | Encounter Summary ---
Author Organization [facility] Address [address] [facility] [address] [place] [address] Care Team Providers Care Line Construction Supervisor Name Role Phone Simon Lundberg MD Primary Care Provider [phone] Nacho Rodriguez MD Unavailable [phone] Elian Gross MD Unavailable Reason for Visit * Reason Onset Date Comments need tramdol refill 06/04/2021 Encounter Details Date Type Department Care Team (Late st Contact Info) Description 06/04/2021 Telephone [facility] Primary Care at [address] [address] Simon Lundberg MD [address] [place] [address] [address] [place] [address] need tramdol refill Social History [...] on file 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 R COMMISSIONER * Telephone Encounter - Simon Lundberg MD - 06/11/2021 9:09 AM LABOR COMMISSIONER Is there anyway we can find out from insurance company? There are only so many pain management specialists in the area. We can table at for now. But to reiterate, I will NOT fill both Tylenol 3 and tramadol R COMMISSIONER * Telephone Encounter - Chica Bal MA - 06/11/2021 8:48 AM LABOR COMMISSIONER Pt stated the his insurance gave him 3 names, pt did not remember the 3 names, when he called to make an appt, he was told that his insurance was not excepted at any of the offices he was given. R COMMISSIONER * Telephone Encounter - Simon Lundberg MD - 06/10/2021 12:35 PM LABOR COMMISSIONER That is a bit confusing, insurance gave [...] still recommend we get Pain Management involved. R COMMISSIONER * Telephone Encounter - Chica Bal MA - 06/07/2021 5:19 PM LABOR COMMISSIONER Spoke to pt, pt stated he is not taking Tylenon 3. Pt does not know which pain management his insurance takes, he stated that the insurance had given him 3 names, but all 3 did not take his insurance. Pt does not know what to do, he may go back to his other dr. R COMMISSIONER * Telephone Encounter - Simon Lundberg MD - 06/07/2021 3:52 PM LABOR COMMISSIONER I won't fill both. It is not a safe practice, risk of overdose R COMMISSIONER * Telephone Encounter - Ellen Jones - 06/07/2021 1:29 PM CST Patient reports he was taking the Tylenol 3 but ran out. He states that he was using it as the Tramadol was not working for his pain. R COMMISSIONER * Telephone Encounter - Simon Lundberg MD - 06/07/2021 1:19 PM LABOR COMMISSIONER I'll need a list of names form his network. We can have him call [place] to get that. Also, is he still taking tylenol 3? R COMMISSIONER * Telephone Encounter - Ellen Jones - 06/07/2021 8:49 AM CST Patient informed and voiced understanding. He reports he was referred to pain management but they did not accept his insurance. Please place a pain management referral and I will search for someone in network for him. R COMMISSIONER * Telephone Encounter - Ellen Jones - 06/07/2021 8:24 AM CST LVM to call back R COMMISSIONER * Addendum Note - Simno Lundberg MD - 06/06/2021 10:29 AM CSTAddended by: SIMON LUNDBERG on: 06/06/2021 10:29 AM Modules accepted: Orders R COMMISSIONER * Telephone Encounter - Simon Lundberg MD - 06/06/2021 10:27 AM LABOR COMMISSIONER Couple things: make sure he is not taking tylenol 3 anymore. Also, I will fill tramadol once. If further chronic pain med needed, I will need to refer out to pain management. R COMMISSIONER * Telephone Encounter - Ellen Jones - 06/04/2021 1:03 PM CST Patient is calling stating that he needs a refill on his Tramadol 50 mg take one tablet three timesa day to [facility]. Please call patient once this is done. R COMMISSIONER documented in this encounter Plan of Treatment Not on file documented as of this encounter Visit Diagnoses Not on filedocumented in this encounter Discontinued Medications Medication Sig Discontinue Reason Start Date End Da te traMADol (ULTRAM) 50 mg tablet TAKE 1 TABLET 3 TIMES DAILY NEEDED. Reorder 12/08/2016 06/06/2021 documented as of this encounter Care Teams Line Construction Supervisor Relationship Specialty Start Date End Date Simon Lundberg MD [address] [place] [address] PCP - General Family Medicine 05/20/21 08/22/21 [place] [address] [address] [address] Consulting Physician Endocrinology 05/20/21 [place] [address] [address] [address] Consulting Physician Internal Medicine 05/20/21 documented as of this encounter
--- OUTSIDE RECORDS SUMMARY | 2024-05-08 07:35 | XMS_ITS | Encounter Summary ---
Author Organization [facility] Healthcare Address [address] [place] [address] Care Team Providers Care Web Services Architect Name Role Phone Nacho Rodriguez MD Unavailable [phone] Elian Gross MD Unavailable Braydon Pavon Primary Care Provider [phone] Encounter Details Date Type Department Care Team (Late st Contact Info) Description 08/23/2021 8:00 AM CDT - 08/23/2021 8:45 AM CDT Surgery [facility] Endoscopy [address] [place] [address] Elian Gross MD [address] [facility] [address] [place], [place] [id number] Not Performed COLONOSCOPY Social History Tobacco Use [...] on file 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 Use to [...] the skin every 7 days Sample Lot [id number] Exp 03/03/2023 x 2 pens 11/07/20 Nacho [...] re:Bowel prep When you arrive come to [facility] hospital entrance. As you enter there [...] and we do wear masks If your delivery route driver chooses to come into the building, they will be required to wear a mask If your delivery route driver chooses not to come in or will be picking you up after your procedure with anesthesia we will call your delivery route driver to confirm your ride home. documented in this encounter Plan of Treatment Not on file documented as of this encounter Procedures Procedure Name Priority Date/Time Associated Diagnosis Comments POCT GLUCOSE DEVICE Routine 08/23/2021 8 :18 AM CDT POCT GLUCOSE DEVICE Routine 08/23/2021 7 :32 AM CDT documented in this encounter Results * (ABNORMAL) POCT glucose (08/23/2021 8:18 AM CDT) [facility] Signature Glucose, POC 298(H) 70 - 199 mg/dL [facility] Comment: Interpretive Data Glucose is assumed to be non-fasting. Fasting Glucose reference ranges are: 0 - 150 years: ??70 mg/dL - 99 mg/dL Current interpretive data was last revised on 2014. POC Performer [id number] [facility] POC Device Number [id number] [facility] Blood 08/23/2021 8:18 AM CDT 08/23/2021 8:18 AM CDT us Elian Draper MD LAB POCT ORD ERABLES - DEVICE Final Result Performing Organization Address [facility] Co de Phone Number [facility] [address] [facility] [place] [place] [address] * (ABNORMAL) POCT glucose (08/23/2021 7:32 AM CDT) [facility] Signature Glucose, POC 344(H) 70 - 199 mg/dL [facility] Comment: Interpretive Data Glucose is assumed to be non-fasting. Fasting Glucose reference ranges are: 0 - 150 years: ??70 mg/dL - 99 mg/dL Current interpretive data was last revised on 2014. POC Performer [id number] [facility] Device Number [id number] [facility] Blood 08/23/2021 7:32 AM CDT 08/23/2021 7:32 AM CDT us Elian Draper MD LAB POCT ORD ERABLES - DEVICE Final Result Performing Organization Address [facility] Co de Phone Number [facility] [address] [facility] [employer] [place] [address] documented in this encounter Visit Diagnoses Diagnosis [...] 08/23/2021 documented in this encounter Care Teams Web Services Architect Relationship Specialty Start Date End Date Braydon Pavon PA [address] [place] [address] PCP - General 08/23/21 [place] [address] [place] [address] Consulting Physician Endocrinology 05/20/21 [place] [address] [place] [address] Consulting Physician Internal Medicine 05/20/21 documented as of this encounter
--- OUTSIDE RECORDS SUMMARY | 2024-05-08 07:35 | XMS_ITS | Encounter Summary ---
Author Organization [facility] Medical Group Address [address] [facility] [address] [place] [address] Care Team Providers Care Pier Master Assistant Name Role Phone Simon Lundberg MD Primary Care Provider [phone] Nacho Rodriguez MD Unavailable [phone] Elian Gross MD Unavailable Reason for Visit * Reason Onset Date Comments order for covid test 05/22/2021 Encounter Details Date Type Department Care Team (Late st Contact Info) Description 05/22/[address] 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 RTISING SUPERVISOR * Telephone Encounter - Simon Lundberg MD - 05/22/2021 12:55 PM ADVERTISING SUPERVISOR It will need to be faxed to that hospital RTISING SUPERVISOR * Telephone Encounter - Norm Garcia - 05/22/2021 12:22 PM CST Patient called and would like a covid test sent to [facility]. He has had exposureto his granddaughter that tested positive. RTISING SUPERVISOR documented in this encounter Plan of [...] Primary documented in this encounter Care Teams Pier Master Assistant Relationship Specialty Start Date End Date Simon Lundberg MD [address] [place] [address] PCP - General Family Medicine 05/20/21 08/22/21 [place] [address] [address] Consulting Physician Endocrinology 05/20/21 [place] [address] [address] Consulting Physician Internal Medicine 05/20/21 documented as of this encounter
--- OUTSIDE RECORDS SUMMARY | 2024-05-08 07:35 | XMS_ITS | Encounter Summary ---
Author Organization [facility] Healthcare Address [address] [place] [address] Care Team Providers Care Software Asset Manager Name Role Phone Nacho Rodriguez MD Unavailable [phone] Elian Gross MD Unavailable Braydon Pavon Primary Care Provider [phone] Encounter Details Date Type Department Care Team (Late st Contact Info) Description 08/23/2021 8:00 AM CDT Anesthesia Event [facility] Endoscopy [address] [place] [address] Bismark Edwards MD [address] [place] [address] Anesthesia Record Procedure Summary Procedure Name Responsible [...] on file 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 Gender Identity Male 10/29/2020 12:37 PM [...] Page MD Notes: Not taking Dexcom G6 Clearing House Clerk misc 05/21/21 -- Nacho Rodriguez MD Dx: [...] the skin every 7 days Sample Lot [id number] Exp 03/03/2023 x 2 pens Notes: Not [...] Medication protocol when under care of a WOOD LATHER Planned anesthesia: General Informed Consent: Anesthesia plan [...] on filedocumented in this encounter Care Teams Software Asset Manager Relationship Specialty Start Date End Date Braydon Pavon PA [address] [place] [address] PCP - General 08/23/21 [place] [address] [address] [address] Consulting Physician Endocrinology 05/20/21 [place] [address] [address] [facility] [address] [address] Consulting Physician Internal Medicine 05/20/21 documented as of this encounter
--- OUTSIDE RECORDS SUMMARY | 2024-05-08 07:35 | XMS_ITS | Encounter Summary ---
Author Organization [facility] Medical Group Address [address] [facility] [address] [place] [address] Care Team Providers Care Cook Cashier Food Prep Name Role Phone Simon Lundberg MD Primary Care Provider [phone] Nacho Rodriguez MD Unavailable [phone] Elian Gross MD Unavailable Encounter Details Date Type Department Care Team (Late st Contact Info) Description 05/22/2021 Orders Only [facility] Medical [facility] Primary Care at [address] [address] Simon Lundberg MD [address] [place] [address] [address] [place] [address] Social History Tobacco Use Types [...] on file 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
--- OUTSIDE RECORDS SUMMARY | 2024-05-08 07:35 | XMS_ITS | Encounter Summary ---
Author Organization [facility] Healthcare Address [address] [place] [address] Care Team Providers Care Glass Glazier Name Role Phone Braydon Pavon Primary Care Provider [phone] Nikolay Lancaster MD Unavailable [phone] Reason for Referral * Diagnostic Imaging (Routine) - Closed Specialty Diagnoses / Procedures Referred By Contac t Referred To Contact Radiology Diagnoses Hepatic cirrhosis, unspecified hepatic cirrhosis type, unspecified whether ascites present (HCC) Procedures IR TIPS Revision Damien Archuleta MD Phone: tel: fax: [address] [address] Referral ID Status Reason Start Date Expiration Date Visits Re quested Visits Authorized [id number] Closed 01/02/2021 02/01/2022 1 1 Reason for Visit * Diagnostic Imaging (Routine) - Closed Specialty Diagnoses / Procedures Referred By Contac t Referred To Contact Radiology Diagnoses Hepatic cirrhosis, unspecified hepatic cirrhosis type, unspecified whether ascites present (HCC) Procedures IR TIPS Revision Damien Archuleta MD Phone: tel: fax: [address] [address] Referral ID Status Reason Start Date Expiration Date Visits Re quested Visits Authorized [id number] Closed 01/02/2021 02/01/2022 1 1 Encounter Details Date Type Department Care Team (Latest Contact Info) Description 01/10/2021 7:49 AM CDT - 01/10/2021 11:38 AM CDT Hospital [facility] [address] [place] [address] Damien Archuleta MD [address] [facility] [place] [place] [address] 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) [...] on file 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 Gender Identity Male 10/29/2020 12:37 PM CDT [...] prosthetic devices, implants and grafts, initial encounter ([facility]) - STENOSIS OF OTHER VASCULAR PROSTHETIC DEVICES, IMPLANTS AND GRAFTS, INITIAL ENCOUNTER Nonalcoholic steatohepatitis (BLAND) - NONALCOHOLIC STEATOHEPATITIS (BLAND) Portal hypertension (CMS/HCC) ([facility]) - PORTAL HYPERTENSION Portal hypertension Other diseases of stomach and duodenum - OTHER DISEASES OF STOMACH AND DUODENUM Secondary esophageal varices without bleeding (CMS/HCC) ([facility]) - SECONDARY ESOPHAGEAL VARICES WITHOUT BLEEDING Compression of vein - COMPRESSION OF VEIN Type 2 diabetes mellitus without complications (CMS/HCC) ([facility]) - TYPE 2 DIABETES MELLITUS WITHOUT COMPLICATIONS [...] status - RADIOGRAPHIC DYE ALLERGY STATUS Other tank terminal gauger (current) drug therapy - OTHER PRISON (CURRENT) DRUG THERAPY tank terminal gauger (current) use of insulin ([facility]) - PRISON (CURRENT) USE OF INSULIN Surgical operation with [...] draining. To contact an Interventional Radiologist at [facility] call [phone] Thursday through Thursday from 7:30am-4:30pm. At all other times call [phone] and ask that the Interventional Radiologist be paged. To contact an Interventional Radiologist at [facility] call [phone] Thursday through Thursday from 7:30am-3:30pm. Special instructions: [...] at Please come to: [] 3rd Floor [facility] [] 4th floor [facility] [] [facility] [] [facility] Please call [phone] to schedule a follow up appointment. You [...] the skin every 7 days Sample Lot [id number] Exp 03/03/2023 x 2 pens 2 pen [...] taking for the 01/10/21 encounter (Appointment) with [facility] N IR 363. Physical exam: Breathing [...] ??? clindamycin (CLINDAGEL) 1 % gel ??? dldcozh-qshbDUUingd-zapsprphpbriajb (Virtussin DAC) 2-20-6 mg/mL syrup every 6 [...] under the skinevery 7 days Sample Lot [id number] Exp 03/03/2023 x 2 pens ??? traMADol [...] been discussed with the patient and/or their field service representative. All questions answered and they agree [...] ORDERABLES - DEVICE F inal Result [facility] Department [place] [address] * IR TIPS Revision (01/10/2021 10:23 AM [...] was obtained. Prior to beginning the procedure, [place] Protocol was performed to confirm the patient's [...] centrally followed by placement of a 9 [place] vascular sheath. A Lev ??catheter was advanced [...] was obtained. Prior to beginning the procedure, [place] Protocol was performed to confirm the patient's [...] centrally followed by placement of a 9 [place] vascular sheath. A Lev catheter was advanced [...] 2020 documented in this encounter Care Teams Glass Glazier Relationship Specialty Start Date End Date Braydon Pavon PA [address] [place] [address] PCP - General Family Practice 05/09/20 05/19/21 Nikolay Lancaster MD [address] [place] [address] 05/09/20 05/19/21 documented as of this encounter
--- OUTSIDE RECORDS SUMMARY | 2024-05-08 07:35 | XMS_ITS | Encounter Summary ---
Author Organization [facility] Healthcare Address [address] [place] [address] Care Team Providers Care Cardiac Rehab Nurse Name Role Phone Nacho Rodriguez MD Unavailable [phone] Elian Gross MD Unavailable Braydon Pavon Primary Care Provider [phone] Encounter Details Date Type Department Care Team (Late st Contact Info) Description 08/23/2021 6:47 AM CDT - 08/23/2021 8:35 AM CDT Hospital Encounter [facility] Endoscopy [address] [place] [address] Elian Gross MD [address] [place], [place] [id number] Discharge Disposition: Discharge to home or self [...] file 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 Use to [...] the skin every 7 days Sample Lot [id number] Exp 03/03/2023 x 2 pens 2 pen [...] mg tablet 11/09/20 ProviderTyler MD Dexcom G6 Pasting Machine Operator misc 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 Use to [...] the skin every 7 days Sample Lot [id number] Exp 03/03/2023 x 2 pens 11/07/20 Nacho [...] re:Bowel prep When you arrive come to [facility] hospital entrance. As you enter there [...] and we do wear masks If your bull driver chooses to come into the building, they will be required to wear a mask If your bull driver chooses not to come in or will be picking you up after your procedure with anesthesia we will call your bull driver to confirm your ride home. documented in this encounter Plan of Treatment Not on file documented as of this encounter Procedures Procedure Name Priority Date/Time Associated Diagnosis Comments POCT GLUCOSE DEVICE Routine 08/23/2021 8 :18 AM CDT POCT GLUCOSE DEVICE Routine 08/23/2021 7 :32 AM CDT documented in this encounter Results * (ABNORMAL) POCT glucose (08/23/2021 8:18 AM CDT) [facility] Signature Glucose, POC 298(H) 70 - 199 mg/dL [facility] Comment: Interpretive Data Glucose is assumed to be non-fasting. Fasting Glucose reference ranges are: 0 - 150 years: ??70 mg/dL - 99 mg/dL Current interpretive data was last revised on 2014. POC Performer [id number] [facility] POC Device Number [id number] [facility] Blood 08/23/2021 8:18 AM CDT 08/23/2021 8:18 AM CDT Elian Draper MD LAB POCT ORD ERABLES - DEVICE Final Result Performing Organization Address [facility] Phone Number [facility] [address] [facility] [place] [address] * (ABNORMAL) POCT glucose (08/23/2021 7:32 AM CDT) [facility] Glucose, POC 344(H) 70 - 199 mg/dL [facility] Comment: Interpretive Data Glucose is assumed to be non-fasting. Fasting Glucose reference ranges are: 0 - 150 years: ??70 mg/dL - 99 mg/dL Current interpretive data was last revised on 2014. POC Performer [id number] [facility] POC Device Number [id number] [facility] Blood 08/23/2021 7:32 AM CDT 08/23/2021 7:32 AM CDT Elian Draper MD LAB POCT ORD ERABLES - DEVICE Final Result Performing Organization Address [facility] de Phone Number [facility] [address] [facility] [place] [address] documented in this encounter Visit Diagnoses Diagnosis [...] 08/23/2021 documented in this encounter Care Teams Cardiac Rehab Nurse Relationship Specialty Start Date End Date Braydon Pavon PA [address] [place] [address] PCP - General 08/23/21 [place] [address] [address] [place] [address] Consulting Physician Endocrinology 05/20/21 [place] [address] [address] [facility] [address] [place] [address] Consulting Physician Internal Medicine 05/20/21 documented as of this encounter
--- OUTSIDE RECORDS SUMMARY | 2024-05-08 07:35 | XMS_ITS | Encounter Summary ---
Author Organization [facility] Address [address] [facility] [address] [place] [address] Care Team Providers Care Cardiograph Operator Name Role Phone Simon Lundberg MD Primary Care Provider [phone] Nacho Rodriguez MD Unavailable [phone] Elian Gross MD Unavailable Reason for Visit * Reason Comments New Patient new patient Encounter Details Date Type Department Care Team (Late st Contact Info) Description 05/20/2021 9:00 AM WAITER/WAITRESS COUNTER Office Visit [facility] Medical [facility] Primary Care at [address] [address] Simon Lundberg MD [address] [place] [address] [address] [place] [address] Encounter for medical examination to [...] on file Legal 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 Male 2:52 PM WAITER/WAITRESS COUNTER Gender Identity Male 10/29/2020 12:37 PM CDT Sexual Orientation Straight 10/29/2020 12 :37 PM CDT documented as of this encounter Last Filed Vital Signs Vital Sign Reading Time Taken Comments Blood Pressure 124/70 05/20/2021 9:01 AM WAITER/WAITRESS COUNTER Pulse 106 05/20/2021 9:01 AM WAITER/WAITRESS COUNTER Temperature 36.8 ??C (98.3 ??F) 05/20/2021 9:01 AM CS T Respiratory Rate 16 05/20/2021 9:01 AM WAITER/WAITRESS COUNTER Oxygen Saturation 97% 05/20/2021 9:01 AM WAITER/WAITRESS COUNTER Inhaled Oxygen Concentration - - Weight 117.9 kg (260 lb) 05/20/2021 9:01 AM WAITER/WAITRESS COUNTER Height 172.7 cm (5' 8 ) 05/20/2021 9:01 AM WAITER/WAITRESS COUNTER Body Mass Index 39.53 05/20/2021 9:01 AM WAITER/WAITRESS COUNTER documented in this encounter Patient Instructions * Patient Instructions* Simon Lundberg MD - 05/20/2021 9:00 AM WAITER/WAITRESS COUNTER Need follow-up arranged with master sheet clerk, pooling operator Planning on referral to paint laboratory technician Will need to check in to the tips follow-up Labs as ordered today, I will direct the Jeremi c to his pooling operator's office. Continuing the current regimen for now. [...] you have any questions or concerns at [phone]. You may receive a phone call, text, MYCHART message, or e-mail asking about your care today. We would love to hear your feedback on how EXCELLENT your care wastoday! Wishing you better health, always. Dr. Lundberg ER/WAITRESS COUNTER documented in this encounter Progress Notes * [...] stenosis, need to pain management physician. His master sheet clerk ordered a stress test a year ago, but never obtained. He needs to make follow-up appointments with his master sheet clerk, his pooling operator. He notes some difficulty getting through to his medical office receptionist assistant Current Outpatient Medications Medication Sig Dispense Refill [...] under the skinevery 7 days Sample Lot [id number] Exp 03/03/2023 x 2 pens 2 pen [...] unless otherwise indicated. Need follow-up arranged with master sheet clerk, pooling operator Planning on referral to paint laboratory technician Will need to check in to the tips follow-up Labs as ordered today, I will direct the A1 c to his pooling operator's office. Continuing the current regimen for now. [...] - Ambulatory referral to Pain Management; Future ER/WAITRESS COUNTER documented in this encounter Miscellaneous Notes * Assessment & Plan Note - Simon Lundberg MD - 05/20/2021 9:26 AM WAITER/WAITRESS COUNTER Associated Problem(s): Encounter for medical examination to [...] unless otherwise indicated. Need follow-up arranged with master sheet clerk, pooling operator Planning on referral to paint laboratory technician Will need to check in to the tips follow-up Labs as ordered today, I will direct the A1 c to his pooling operator's office. Continuing the current regimen for now. Blood pressure is controlled at this time. We may need to try to get the stress test done as well. ER/WAITRESS COUNTER ER/WAITRESS COUNTER documented in this encounter Plan of Treatment Not on file documented as of this encounter Results * (ABNORMAL) Hemoglobin A1c (05/20/2021 9:36 AM WAITER/WAITRESS COUNTER) Hgb A1C 9.8(H) 4.0 - 5.6 % [facility] Estimated Average Glucose 235 mg/dL [facility] Comment: The ADA recommends reporting an estimated Average Glucose (eAG) with all Hemoglobin A1c results using the equation derived from a study of 507 normal and diabetic adults. ??Minority populations were underrepresented and children were not included. ?? (Diabetes Care 31:9498-4800, 2007). ??The eAG is not equivalent to a fasting glucose. Blood 05/20/2021 9:36 AM WAITER/WAITRESS COUNTER 05/20/2021 7:41 PM WAITER/WAITRESS COUNTER Simon Lundberg MD LAB BLOOD ORDERABLES Final Result Performing Organization Address [facility] Co de Phone Number [facility] [address] [place] [address] * Albumin Creatinine Ratio, Urine (05/20/2021 9:36 AM WAITER/WAITRESS COUNTER) Pathologist [facility] Albumin Ur <12.0 mg/L [facility] Comment: Interpretive Data No reference range established. Current interpretive data was last revised 2018. Creatinine Ur 47.6 mg/dL [facility] Comment: Interpretive Data No reference range established. Current interpretive data was last revised 2018. Albumin Creatinine Ratio, Ur <25 1 - 29 mg/g [facility] Urine 05/20/2021 9:36 AM WAITER/WAITRESS COUNTER 05/20/2021 7:41 PM WAITER/WAITRESS COUNTER Simon Lundberg MD LAB URINE ORDERABLES Final Result Performing Organization Address [facility] Co de Phone Number [facility] [address] [facility] [place], [place] [id number] * (ABNORMAL) Vitamin D 25 hydroxy (05/20/2021 9:36 AM WAITER/WAITRESS COUNTER) Pathologist [facility] Vitamin D 25-OH 12(L) 30 - 80 ng/mL [facility] Blood 05/20/2021 9:36 AM WAITER/WAITRESS COUNTER 05/20/2021 7:41 PM WAITER/WAITRESS COUNTER us Simon Lundberg MD LAB BLOOD ORDERABLES Final Result Performing Organization Address City/State/ZIP Co al Phone Number [facility] [address] [facility] Department [place] [address] * (ABNORMAL) Lipid panel (05/20/2021 9:36 AM WAITER/WAITRESS COUNTER) Cholesterol 110 30 - 199 mg/dL [facility] Comment: Interpretive Data Ages < or [...] revised on 2017. Triglycerides 149 <=149 mg/dL [facility] Comment: Interpretive Data Ages < [...] 3 [facility] Blood 05/20/2021 9:36 AM WAITER/WAITRESS COUNTER 05/20/2021 7:41 PM WAITER/WAITRESS COUNTER Simon Lundberg MD LAB BLOOD ORDERABLES Final Result [facility] [address] Department [place] [address] * (ABNORMAL) Comprehensive metabolic panel (05/20/2021 9:36 AM WAITER/WAITRESS COUNTER) Sodium 139 135 - 145 mmol/L [facility] [...] Units/L [facility] Blood 05/20/2021 9:36 AM WAITER/WAITRESS COUNTER 05/20/2021 7:41 PM WAITER/WAITRESS COUNTER us Simon Lundberg MD LAB [place] [address] [address] Department [place] [address] * (ABNORMAL) CBC with auto differential (05/20/2021 9:36 AM WAITER/WAITRESS COUNTER) WBC 3.4(L) 3.8 - 9.9 K/cumm [facility] [...] K/cumm [facility] Blood 05/20/2021 9:36 AM WAITER/WAITRESS COUNTER 05/20/2021 7:41 PM WAITER/WAITRESS COUNTER us Simon Lundberg MD LAB BLOOD ORDERABLES Final Result Performing Organization Address City/State/ZIP Co al Phone Number [facility] [address] [place] [address] documented in this encounter Visit [...] valACYclovir (VALTREX) 1 gram tablet 11/19/2020 05/20/2021 zeytzzv-ruuuKZAtbvx-stym doephedrine (Virtussin DAC) 2-20-6 mg/mL syrup every [...] hyperglycemia, with long-term current use of insulin ([facility]) One sensor every 14 days 10/29/2020 05/20/2021 [...] 03/29/2021 added in this encounter Care Teams Cardiograph Operator Relationship Specialty Start Date End Date Simon Lundberg MD [address] [place] [address] PCP - General Family Medicine 05/20/21 08/22/21 [place] [address] [address] Consulting Physician Endocrinology 05/20/21 [place] [address] [address] Consulting Physician Internal Medicine 05/20/21 documented as of this encounter
--- OUTSIDE RECORDS SUMMARY | 2024-05-08 07:35 | XMS_ITS | Encounter Summary ---
Author Organization [facility] Medical [facility] Address [address] [facility] [address] [place] [address] Care Team Providers Care Slide Fastener Repairer Name Role Phone Simon Lundberg MD Primary Care Provider [phone] Nacho Rodriguez MD Unavailable [phone] Elian Gross MD Unavailable Reason for Visit * Reason Onset Date Comments Forms/questionnaires 07/17/2021 ADS Encounter Details Date Type Department Care Team (Late st Contact Info) Description 07/17/2021 Telephone [facility] Specialists Of [facility] [address] [facility] [address] [place] [address] [place] [address] [facility] [address] [place] [address] Forms/questionnaires (ADS) Social History Tobacco [...] on file 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 Office note from 10/29/20 faxed to [facility] and confirmation will be scanned when complete documented in this encounter Plan of Treatment Not on file documented as of this encounter Visit Diagnoses Not on filedocumented in this encounter Care Teams Slide Fastener Repairer Relationship Specialty Start Date End Date Simon Lundberg MD [address] [place] [address] PCP - General Family Medicine 05/20/21 08/22/21 [place] [address] [address] Consulting Physician Endocrinology 05/20/21 [place] [address] [address] Consulting Physician Internal Medicine 05/20/21 documented as of this encounter
--- OUTSIDE RECORDS SUMMARY | 2024-05-08 07:35 | XMS_ITS | Encounter Summary ---
Author Organization [facility] Address [address] [place] [address] Phone Care Team Providers Care Vacuum System Tester Name Role Phone Simon Lundberg MD Primary Care Provider [phone] Nacho Rodriguez MD Unavailable [phone] Elian Gross MD Unavailable Encounter Details Date Type Department Care Team (Late st Contact Info) Description 06/26/2021 Telephone [facility] Gastroenterology [address] 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 Patient already has the 2 day prep at home. ----- Message from Faith Hooker sent at 06/19/2021 10:30 AM OWNER/OPERATOR ----- Regarding: FW: colon repeat Will you contact him to reschedule now that electives are resuming. ----- Message ----- From: Faith Hooker Sent: 06/19/2021 12:00 AM OWNER/OPERATOR To: Faith Hooker Subject: FW: colon repeat Pt aware that we could not schedule his Elective colonsocpy in June due to covid surge. Plan to f/u in 4-6 weeks to see if rescheduling is an option. R/OPERATOR R/OPERATOR documented in this encounter Plan of Treatment Not on file documented as of this encounter Visit Diagnoses Not on filedocumented in this encounter Care Teams Vacuum System Tester Relationship Specialty Start Date End Date Smion Lundberg MD [address] [place] [address] PCP - General Family Medicine 05/20/21 08/22/21 [place] [address] [address] [facility] [address] [place] [address] Consulting Physician Endocrinology 05/20/21 [place] [address] [address] Consulting Physician Internal Medicine 05/20/21 documented as of this encounter
--- OUTSIDE RECORDS SUMMARY | 2024-05-08 07:35 | XMS_ITS | Encounter Summary ---
Author Organization [facility] Medical [facility] Address [address] [facility] [address] [place] [address] Care Team Providers Care Milling Machine Set Up Operator Name Role Phone Braydon Pavon Primary Care Provider Nikolay Lancaster MD Unavailable [phone] Reason for Visit * Reason Onset Date Comments 1st no show letter 12/24/2020 Encounter Details Date Type Department Care Team (Late st Contact Info) Description 12/24/2020 Telephone [facility] [address] [facility] [address] [place] [address] Guicho Lindo, Nacho Lindo MD [id number] [place] [address] [address] [place] [address] 1st no show letter Social [...] file 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
--- OUTSIDE RECORDS SUMMARY | 2024-05-08 07:35 | XMS_ITS | Encounter Summary ---
Author Organization [facility] Medical Group Address [address] [facility] [address] [place] [address] Care Team Providers Care Case Management Specialist Name Role Phone Braydon Pavon Primary Care Provider [phone] Nikolay Lancaster MD Unavailable [phone] Encounter Details Date Type Department Care Team (Late st Contact Info) Description 02/04/2021 Telephone [facility] Specialists Of [address] [address] [place]icho Lind[place] [address] [facility] [address] [place] [address] Social History Tobacco Use Types [...] on file Legal 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
--- OUTSIDE RECORDS SUMMARY | 2024-05-08 07:35 | XMS_ITS | Encounter Summary ---
Author Organization [facility] Address [address] [place] [address] Phone Care Team Providers Care Ticker Maintainer Name Role Phone Braydon Pavon Primary Care Provider [phone] Nikolay Lancaster MD Unavailable [phone] Reason for Visit * Reason Onset Date Comments Reschedule Colonoscopy 04/23/2021 Encounter Details Date Type Department Care Team (Late st Contact Info) Description 04/23/2021 Telephone [facility] Gastroenterology [address] [facility] 8th [place] [address] [place] [address] Faith Hooker. Reschedule Colonoscopy Social [...] on file Legal Sex Male 2:52 PM NETWORK DIAGNOSTIC SUPPORT SPECIALIST Gender Identity Male 10/29/2020 12:37 [...] out in June or July to f/u. ORK DIAGNOSTIC SUPPORT SPECIALIST * Telephone Encounter - Faith Hooker - 04/24/2021 1:32 PM CST I called Camilo at [phone], I was unable to reach him. I LMOR for a return call. ORK DIAGNOSTIC SUPPORT SPECIALIST * Telephone Encounter - Faith Hooker - 04/23/2021 10:09 AM CST I called Camilo at [phone], I was unable to reach him. I LMOR for a return call. ----- Message from Brianna Vázquez LPN sent at 04/16/2021 1:02 PM NETWORK DIAGNOSTIC SUPPORT SPECIALIST ----- Regarding: RE: colon repeat Thanks! ----- Message ----- From: Faith Hooker Sent: 04/16/2021 12:51 PM NETWORK DIAGNOSTIC SUPPORT SPECIALIST To: Brianna Vázquez LPN Subject: RE: colon repeat He left a message canceling. I have him in my f/u lists to get him rescheduled. ----- Message ----- From: Brianna Vázquez LPN Sent: 04/16/2021 12:47 PM NETWORK DIAGNOSTIC SUPPORT SPECIALIST To: Faith Hooker Subject: RE: colon repeat I'm not seeing this in his chart at all... am I missing something? ----- Message ----- From: Faith Hooker Sent: 04/13/2021 12:00 AM NETWORK DIAGNOSTIC SUPPORT SPECIALIST To: Brianna Vázquez LPN Subject: FW: colon repeat SCHEDULED WITH [facility] [place] FOR 04.12.2021 AT 10A AT [facility] ----- Message ----- From: Faith Hooker Sent: 02/26/2021 To: Jose Roberto Russell Subject: colon repeat he did a terrible job with his bowel prep, solid stool everywhere, he needs to be reschedule for colonoscopy in 3 to 6 months with a 2 day bowel prep please. Repeat March - June 2021 ORK DIAGNOSTIC SUPPORT SPECIALIST ORK DIAGNOSTIC SUPPORT SPECIALIST documented in this encounter Plan of Treatment Not on file documented as of this encounter Visit Diagnoses Not on filedocumented in this encounter Care Teams Ticker Maintainer Relationship Specialty Start Date End Date Braydon Pavon PA [address] [place] [address] PCP - General Family Practice 05/09/20 05/19/21 Nikolay Lancaster MD [address] [place] [address] 05/09/20 05/19/21 documented as of this encounter
--- OUTSIDE RECORDS SUMMARY | 2024-05-08 07:35 | XMS_ITS | Encounter Summary ---
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 Rx# [id number] documented in this encounter Plan of Treatment Not on file documented as of this encounter Visit Diagnoses Not on filedocumented in this encounter Care Teams Hospital Food Service Worker Relationship Specialty Start Date End Date Braydon Pavon PA [address] [place] [address] PCP - General Family Practice 05/09/20 05/19/21 Nikolay Lancaster MD [address] [address] 05/09/20 05/19/21 documented as of this encounter
--- OUTSIDE RECORDS SUMMARY | 2024-05-08 07:35 | XMS_ITS | Encounter Summary ---
Author Organization [facility] Address [address] [facility] [address] [place] [address] Care Team Providers Care Taker Down Name Role Phone Simon Lundberg MD Primary Care Provider [phone] Nacho Rodriguez MD Unavailable [phone] Elian Gross MD Unavailable Reason for Visit * Reason Onset Date Comments Test Results 05/22/2021 labs Encounter Details Date Type Department Care Team (Late st Contact Info) Description 05/22/2021 Telephone [facility] Primary Care at [address] [address] Ana Rosa Guerrero MA Test [...] on file Legal Sex Male 2:52 PM PISTON MAKER Gender Identity Male 10/29/2020 12:37 PM CDT Sexual Orientation Straight 10/29/2020 12 :37 PM CDT documented as of this encounter Miscellaneous Notes * Telephone Encounter - Ana Rosa Guerrero MA - 05/23/2021 8:33 AM CST Pt notified of results. ON MAKER * Telephone Encounter - Norm Weiss - 05/22/2021 4:35 PM CST Patient called in and I relayed message below word for word. ON MAKER * Telephone Encounter - Ana Rosa Guerrero MA - 05/22/2021 4:13 PM CST lmovm for pt to return call for lab results ON MAKER * Telephone Encounter - Ana Rosa Guerrero MA - 05/22/2021 4:13 PM CST ----- Message from Simon Lundberg MD sent at 05/22/2021 3:57 PM PISTON MAKER ----- Please relay: cholesterol is controlled vitamin D is low, needs vitamin D supplement. I will send one. The a1c is 9.8%, will share with Dr. Lindo. Kidney function is fine. He is anemic, and it is likely iron deficiency. I would have him start iron supplement as well. ON MAKER documented in this encounter Plan of Treatment Not on file documented as of this encounter Visit Diagnoses Not on filedocumented in this encounter Care Teams Taker Down Relationship Specialty Start Date End Date Simon Lundberg MD [address] [place] [address] PCP - General Family Medicine 05/20/21 08/22/21 [place] [address] [address] [facility] [address] [place] [address] Consulting Physician Endocrinology 05/20/21 [place] [address] [address] [facility] [address] [place] [address] Consulting Physician Internal Medicine 05/20/21 documented as of this encounter
--- OUTSIDE RECORDS SUMMARY | 2024-05-08 07:35 | XMS_ITS | Encounter Summary ---
Author Organization [facility] Address [address] [place] [address] Phone Care Team Providers Care Professor Of Vegetable Science Name Role Phone Braydon Pavon Primary Care Provider [phone] Nikolay Lancaster MD Unavailable [phone] Reason for Visit * Reason Onset Date Comments GI PRE PROCEDURE ASSESSMENT 03/01/2021 12.1 0.[address] AT [address] ROUSE AT [facility] Encounter Details Date Type Department Care Team (Late st Contact Info) Description 03/01/[address] [facility] Gastroenterology [address] [facility] 8th [place] [address] Faith Hooker GI PRE PROCEDURE ASSESSMENT (04.12.2021 AT [address] 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 Gender Identity Male 10/29/2020 12:37 PM CDT [...] HIGH ON AVERAGE PRIOR PROCEDURE ISSUES: None PRODUCT REPRESENTATIVE/: NA IMPLANTS.: None Notes: DIABETIC MEDS Y/N: [...] [] Location limitations: Scheduling Scheduling location limitations: Image Consultant needed [x] NA Language: POA [x] NA Name: SPECIAL PROCEDURE INSTRUCTIONS Scheduling Notes Procedure information Date of procedure: 04.12.2021 Time of procedure: 10am Arrival time: 9 am Location: [facility] Proceduralist: Demi Rouse Instructions Method of instructions: Mailed copy and Verbal [x]Confirmation of ride/harvest supervisor [x]Post anesthesia restrictions given [x]NPO Instructions: [x]Diet Instructions: [x]Take non-blood thinner prescription meds that morning [x]Bring med list, photo ID, insurance card, no valuables [x]Bring COVID vaccination card (if vaccinated) Bowel Prep Prep prescribed: Other (list) 2 GOLYTELY PREP Method of Bowel Prep (RX): E-Scribe Copy GOLYELY / PT TO CASE MANAGEMENT SOCIAL WORKER DULCOLAX AND MAG CIT ----- Message from [...] 03/01/2021 documented in this encounter Care Teams Professor Of Vegetable Science Relationship Specialty Start Date End Date Braydon Pavon PA [address] [place] [address] PCP - General Family Practice 05/09/20 05/19/21 Nikolay Lancaster MD [address] [place] [address] 05/09/20 05/19/21 documented as of this encounter
--- OUTSIDE RECORDS SUMMARY | 2024-05-08 07:35 | XMS_ITS | Encounter Summary ---
Author Organization [facility] Address [address] [facility] [address] [place] [address] Care Team Providers Care Senior Supply Chain Analyst Name Role Phone Simon Lundberg MD Primary Care Provider [phone] Nacho Rodriguez MD Unavailable [phone] Elian Gross MD Unavailable Reason for Visit * Reason Onset Date Comments pain management referral 05/21/2021 Encounter Details Date Type Department Care Team (Late st Contact Info) Description 05/21/2021 Telephone [facility] Primary Care at [address] [address] Simon Lundberg MD [address] [place] [address] [address] [place] [address] pain management referral Social History [...] on file Legal Sex Male 2:52 PM TELEPHONE APPOINTMENT CLERK Gender Identity Male 10/29/2020 12:37 PM CDT Sexual Orientation Straight 10/29/2020 12 :37 PM CDT documented as of this encounter Miscellaneous Notes * Telephone Encounter - Simon Lundberg MD - 05/21/2021 12:52 PM TELEPHONE APPOINTMENT CLERK We will need to know who they have in-network PHONE APPOINTMENT CLERK * Telephone Encounter - Norm Garcia - 05/21/2021 9:56 AM CST Patient called and stated that Pain management Dr. Ni office doesn't take his insurance. He would like a referral to a different pain management clinic. PHONE APPOINTMENT CLERK documented in this encounter Plan of Treatment Not on file documented as of this encounter Visit Diagnoses Not on filedocumented in this encounter Care Teams Senior Supply Chain Analyst Relationship Specialty Start Date End Date Simon Lundberg MD [address] [place] [address] PCP - General Family Medicine 05/20/21 08/22/21 [place] [address] [address] Consulting Physician Endocrinology 05/20/21 [place] [address] [address] [facility] [place] [address], [place] [address] Consulting Physician Internal Medicine 05/20/21 documented as of this encounter
--- OUTSIDE RECORDS SUMMARY | 2024-05-08 07:35 | XMS_ITS | Encounter Summary ---
Author Organization [facility] Address [address] [facility] [address] [place] [address] Care Team Providers Care Taproom Attendant Name Role Phone Simon Lundberg MD Primary Care Provider [phone] Nacho Rodriguez MD Unavailable [phone] Elian Gross MD Unavailable Encounter Details Date Type Department Care Team (Late st Contact Info) Description 05/27/2021 Orders Only [facility] Information Management [address] [place] [address] Scanning, Provider Social History Tobacco Use Types [...] on file Legal Sex Male 2:52 PM STUDY ASSISTANT Gender Identity Male 10/29/2020 12:37 PM CDT Sexual Orientation Straight 10/29/2020 12 :37 PM CDT documented as of this encounter Plan of Treatment Not on file documented as of this encounter Procedures Procedure Name Priority Date/Time Associated Diagnosis Comments SCAN - LABS 05/27/2021 10:09 PM STUDY ASSISTANT documented in this encounter Results * SCAN - LABS (05/27/2021 10:09 PM STUDY ASSISTANT) us Provider Scanning Final Result documented in this encounter Visit Diagnoses Not on filedocumented in this encounter Care Teams Taproom Attendant Relationship Specialty Start Date End Date Simon Lundberg MD [address] [place] [address] PCP - General Family Medicine 05/20/21 08/22/21 [place] [address] [address] Consulting Physician Endocrinology 05/20/21 [place] [address] [address] [address] Consulting Physician Internal Medicine 05/20/21 documented as of this encounter
--- OUTSIDE RECORDS SUMMARY | 2024-05-08 07:35 | XMS_ITS | Encounter Summary ---
Author Organization [facility] Healthcare Address [address] [place] [address] Care Team Providers Care Clinical Associate Name Role Phone Simon Lundberg MD Primary Care Provider [phone] Nacho Rodriguez MD Unavailable [phone] Elian Gross MD Unavailable Encounter Details Date Type Department Care Team (Late st Contact Info) Description 05/20/2021 5:25 PM INDIGO VAT TENDER CLOTH Lab [address] [address] Diabetic neuropathy associated with type [...] on file Legal Sex Male 2:52 PM INDIGO VAT TENDER CLOTH Gender Identity Male 10/29/2020 12:37 PM CDT Sexual Orientation Straight 10/29/2020 12 :37 PM CDT documented as of this encounter Plan of Treatment Not on file documented as of this encounter Procedures Procedure Name Priority Date/Time Associated Diagnosis Comments EGFR Routine 05/20/2021 9:36 AM INDIGO VAT TENDER CLOTH Hepatic cirrhosis, unspecified hepatic cirrhosis type, unspecified whether ascites present (HCC) DIFFERENTIAL AUTO Routine 05/20/2021 9:3 6 AM INDIGO VAT TENDER CLOTH Thrombocytopenia (CMS/HCC) (HCC) Essential hypertension CBC WITH AUTO DIFFERENTIAL Routine 05/20/2021 9:36 AM INDIGO VAT TENDER CLOTH Thrombocytopenia (CMS/HCC) (HCC) Essential hypertension ALBUMIN CREATININE RATIO, URINE Routine 05/20/2021 9:36 AM INDIGO VAT TENDER CLOTH Diabetic neuropathy associated with type 2 diabetes mellitus (CMS/HCC) (HCC) VITAMIN D 25 HYDROXY Routine 05/20/2021 9:36 AM INDIGO VAT TENDER CLOTH Vitamin D deficiency HEMOGLOBIN A1C Routine 05/20/2021 9:36 AM INDIGO VAT TENDER CLOTH Diabetic neuropathy associated with type 2 diabetes mellitus (CMS/HCC) (HCC) LIPID PANEL Routine 05/20/2021 9:36 AM INDIGO VAT TENDER CLOTH Morbid obesity with body mass index (BMI) of 40.0 to 44.9 in adult (HCC) COMPREHENSIVE METABOLIC PANEL Routine 05/20/2021 9:36 AM INDIGO VAT TENDER CLOTH Hepatic cirrhosis, unspecified hepatic cirrhosis type, unspecified whether ascites present (HCC) documented in this encounter Results * eGFR (05/20/2021 9:36 AM INDIGO VAT TENDER CLOTH) eGFR 112 mL/min/1. 73 m2 MOHINDER MARTINEZ [...] last reviewed 2021. Blood 05/20/2021 9:36 AM INDIGO VAT TENDER CLOTH 05/20/2021 8:16 PM INDIGO VAT TENDER CLOTH Simon Lundberg MD LAB BLOOD ORDERABLES Final Result [facility] [address] [address] [place] [address] * (ABNORMAL) Differential, auto (05/20/2021 9:36 AM INDIGO VAT TENDER CLOTH) Neutrophil abs 2.6 1.7 - 6.5 K/cumm [facility] Imm gran abs 0.0 0.0 - 0.1 K/cumm [facility] Lymphocyte abs 0.4(L) 0.8 - 3.3 K/cumm [facility] Monocyte abs 0.3 0.2 - 0.8 K/cumm [facility] Eosinophil abs 0.1 0.0 - 0.5 K/cumm [facility] Basophil abs 0.0 0.0 - 0.1 K/cumm [facility] Neutrophil pct 75.1 % [facility] Comment: Consistent with previous result Interpretive Data [...] revised on 2017. Blood 05/20/2021 9:36 AM INDIGO VAT TENDER CLOTH 05/20/2021 7:41 PM INDIGO VAT TENDER CLOTH Simon Lundberg MD LAB BLOOD ORDERABLES Final Result [facility] [address] Department [place] [address] * (ABNORMAL) CBC with auto differential (05/20/2021 9:36 AM INDIGO VAT TENDER CLOTH) WBC 3.4(L) 3.8 - 9.9 K/cumm [facility] Hgb 9.2(L) 13.0 - 17.5 g/dL [facility] Hct 36.1(L) 38.9 - 50.3 % [facility] Plt 100(L) 150 - 400 K/cumm [facility] [...] K/cumm [facility] Blood 05/20/2021 9:36 AM INDIGO VAT TENDER CLOTH 05/20/2021 7:41 PM INDIGO VAT TENDER CLOTH us Simon Lundberg MD LAB BLOOD ORDERABLES Final Result Performing Organization Address City/State/[facility] Co de Phone Number [facility] [address] [address] Department [place] [address] * (ABNORMAL) Comprehensive metabolic panel (05/20/2021 9:36 AM INDIGO VAT TENDER CLOTH) Sodium 139 135 - 145 mmol/L [facility] Potassium, pl 4.7 3.3 - 4.9 mmol/L [facility] Chloride 101 97 - 110 mmol/L [facility] CO2 25 22 - 32 mmol/L [facility] Anion gap 13 2 - 15 mmol/L [facility] BUN 11 8 - 25 mg/dL [facility] Creatinine 0.70(L) 0.80 - 1.30 mg/dL [facility] Glucose 373(H) 70 - 199 mg/dL [facility] Comment: Interpretive Data Fasting glucose [...] Units/L [facility] Blood 05/20/2021 9:36 AM INDIGO VAT TENDER CLOTH 05/20/2021 7:41 PM INDIGO VAT TENDER CLOTH us Simon Lundberg MD LAB BLOOD ORDERABLES Final Result Performing Organization Address City/State/ZIP Co wi Phone Number [facility] [address] [address] Department [place] [address] * (ABNORMAL) Lipid panel (05/20/2021 9:36 AM INDIGO VAT TENDER CLOTH) Cholesterol 110 30 - 199 mg/dL [facility] [...] 3 [facility] Blood 05/20/2021 9:36 AM INDIGO VAT TENDER CLOTH 05/20/2021 7:41 PM INDIGO VAT TENDER CLOTH Simon Lundberg MD LAB BLOOD ORDERABLES Final Result Performing Organization Address [facility] de Phone Number MOHINDER [address] [address] [place] [place] [address] * (ABNORMAL) Vitamin D 25 hydroxy (05/20/2021 9:36 AM INDIGO VAT TENDER CLOTH) Vitamin D 25-OH 12(L) 30 - 80 ng/mL [facility] Blood 05/20/2021 9:36 AM INDIGO VAT TENDER CLOTH 05/20/2021 7:41 PM INDIGO VAT TENDER CLOTH Simon Lundberg MD LAB BLOOD ORDERABLES Final Result Performing Organization Address [facility] de Phone Number PAMELAPAULA MARTINEZ [address] [address] [place] [place] [address] * Albumin Creatinine Ratio, Urine (05/20/2021 9:36 AM INDIGO VAT TENDER CLOTH) Albumin Ur <12.0 mg/L [facility] Comment: Interpretive Data No reference range established. Current interpretive data was last revised 2018. Creatinine Ur 47.6 mg/dL [facility] Comment: Interpretive Data No reference range established. Current interpretive data was last revised 2018. Albumin Creatinine Ratio, Ur <25 1 - 29 mg/g [facility] Urine 05/20/2021 9:36 AM INDIGO VAT TENDER CLOTH 05/20/2021 7:41 PM INDIGO VAT TENDER CLOTH Result [facility] Simon Lundberg MD LAB URINE ORDERABLES Final Result Performing Organization Address [facility] Co de Phone Number [facility] [address] [place] [address] * (ABNORMAL) Hemoglobin A1c (05/20/2021 9:36 AM INDIGO VAT TENDER CLOTH) Hgb A1C 9.8(H) 4.0 - 5.6 % [facility] Estimated Average Glucose 235 mg/dL [facility] Comment: The ADA recommends reporting an estimated Average Glucose (eAG) with all Hemoglobin A1c results using the equation derived from a study of 507 normal and diabetic adults. ??Minority populations were underrepresented and children were not included. ?? (Diabetes Care 31:4196-6285, 2008). ??The eAG is not equivalent to a fasting glucose. Blood 05/20/2021 9:36 AM INDIGO VAT TENDER CLOTH 05/20/2021 7:41 PM INDIGO VAT TENDER CLOTH Simon Lundberg MD LAB BLOOD ORDERABLES Final Result Performing Organization Address City/[facility] Co de Phone Number [facility] [address] [address] [facility] [place] [address] documented in this encounter Visit Diagnoses Diagnosis Diabetic neuropathy associated with type 2 diabetes mellitus (CMS/HCC) (HCC) Vitamin D deficiency Morbid obesity with body mass index (BMI) of 40.0 to 44.9 in adult (HCC) Hepatic cirrhosis, unspecified hepatic cirrhosis type, unspecified whether ascites present (HCC) Thrombocytopenia (HCC) Unspecified thrombocytopenia Essential hypertension Unspecified essential hypertension documented in this encounter Care Teams Clinical Associate Relationship Specialty Start Date End Date Simon Lundberg MD [address] [place] [address] PCP - General Family Medicine 05/20/21 08/22/21 [place] [address] [address] [facility] [address] [address] Consulting Physician Endocrinology 05/20/21 [place] [address] [address] [facility] [address] [address] Consulting Physician Internal Medicine 05/20/21 documented as of this encounter
--- OUTSIDE RECORDS SUMMARY | 2024-05-08 07:35 | XMS_ITS | Encounter Summary ---
Author Organization [facility] Address [address] [facility] [address] [place] [address] Care Team Providers Care Beer Cooler Name Role Phone Simon Lundberg MD Primary Care Provider [phone] Nacho Rodriguez MD Unavailable [phone] Elian Gross MD Unavailable Encounter Details Date Type Department Care Team (Late st Contact Info) Description 05/20/2021 9:45 AM TINNING MACHINE SET UP OPERATOR Lab [facility] Outpatient Lab at [address] [address] Encounter for medical examination to [...] on file Legal Sex Male 2:52 PM TINNING MACHINE SET UP OPERATOR Gender Identity Male 10/29/2020 12:37 PM CDT Sexual Orientation Straight 10/29/2020 12 :37 PM CDT documented as of this encounter Plan of Treatment Not on file documented as of this encounter Visit Diagnoses Diagnosis Encounter for medical examination to establish care Diabetic neuropathy associated with type 2 diabetes mellitus (CMS/HCC) (HCC) documented in this encounter Care Teams Beer Cooler Relationship Specialty Start Date End Date Simon Lundberg MD [address] [place] [address] PCP - General Family Medicine 05/20/21 08/22/21 [place] [address] [address] [address] Consulting Physician Endocrinology 05/20/21 [place] [address] [address] [address] Consulting Physician Internal Medicine 05/20/21 documented as of this encounter
--- OUTSIDE RECORDS SUMMARY | 2024-05-08 07:35 | XMS_ITS | Encounter Summary ---
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
--- OUTSIDE RECORDS SUMMARY | 2024-05-08 07:35 | XMS_ITS | Encounter Summary ---
Author Organization [facility] Healthcare Address [address] [place] [address] Care Team Providers Care Lumber Chain Offbearer Name Role Phone Braydon Pavon Primary Care Provider [phone] Nikolay Lancaster MD Unavailable Encounter Details Date Type Department Care Team (Late st Contact Info) Description 04/22/2021 Telephone [facility] Radiology [address] [place] [address] Ellen Eubanks RN Social History Tobacco Use [...] on file Legal Sex Male 2:52 PM WIRELINE FIELD OPERATOR Gender Identity Male 10/29/2020 12:37 PM [...] for him. Emailed the scheduling number to [email or web address]. Will follow up in one week to verify date setup. LINE FIELD OPERATOR documented in this encounter Plan of Treatment Not on file documented as of this encounter Visit Diagnoses Not on filedocumented in this encounter Care Teams Lumber Chain Offbearer Relationship Specialty Start Date End Date Braydon Pavon PA [address] [place] [address] PCP - General Family Practice 05/09/20 05/19/21 Nikolay Lancaster MD [address] [place] [address] 05/09/20 05/19/21 documented as of this encounter
--- OUTSIDE RECORDS SUMMARY | 2024-05-08 07:35 | XMS_ITS | Encounter Summary ---
Author Organization [facility] Address [address] [place] [address] Phone Care Team Providers Care Industrial Relations Analyst Name Role Phone Braydon Pavon Primary Care Provider [phone] Nikolay Lancaster MD Unavailable [phone] Encounter Details Date Type Department Care Team (Late st Contact Info) Description 12/17/2020 Documentation [facility] Gastroenterology [address] [facility] Advanced Medicine 8th [place] [address] [place] [id number] Niraj Anderson MD [address] [place] [address] Social History Tobacco Use Types Packs/Day Years [...] on file Legal Sex Male 2:52 PM BUCKLE AND BUTTON MAKER Gender Identity Male 10/29/2020 12:37 PM [...] filedocumented in this encounter Care Teams Industrial Relations Analyst Relationship Specialty Start Date End Date Braydon Pavon PA [address] [place] [address] PCP - General Family Practice 05/09/20 05/19/21 Nikolay Lancaster MD [address] [place] [address] 05/09/20 05/19/21 documented as of this encounter
--- OUTSIDE RECORDS SUMMARY | 2024-05-08 07:35 | XMS_ITS | Encounter Summary ---
Author Organization [facility] Address [address] [facility] [address] [place] [address] Care Team Providers Care Ambulance Paramedic Name Role Phone Simon Lundberg MD Primary Care Provider [phone] Nacho Rodriguez MD Unavailable [phone] Elian Gross MD Unavailable Encounter Details Date Type Department Care Team (Late st Contact Info) Description 05/27/2021 Telephone [facility] Primary Care at [address] [address] Simon Lundberg MD [address] [place] [address] [address] [place] [address] Social History Tobacco Use Types [...] on file 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 INE CLOTHING MAN * Telephone Encounter - Ellen Jones - 05/28/2021 9:43 AM CST LVMTCB INE CLOTHING MAN * Telephone Encounter - Ellen Jones - 05/28/2021 9:15 AM CST No answer at phone number. Will call back today. INE CLOTHING MAN * Telephone Encounter - Simon Lundberg MD - 05/28/2021 8:35 AM MACHINE CLOTHING MAN Of course, we should have the official result in hand. But the verbally have conveyed it, so go ahead and let him know. Gwen needs to apologize to him for the delay INE CLOTHING MAN * Telephone Encounter - Ellen Jones - 05/28/2021 8:22 AM CST Patient is not aware that he is negative. I wanted to make sure we had to result first. I can call and let him know if you would like. INE CLOTHING MAN * Telephone Encounter - Simon Lundberg MD - 05/27/2021 3:27 PM MACHINE CLOTHING MAN Does he know it was negative? INE CLOTHING MAN * Telephone Encounter - Ellen Jones - 05/27/2021 9:36 AM CST Patient called wanting his PCR results. I informed him that we have not received the results from [facility]. He reports that he can not believe we do not have the results. I check with my lead PSR and she confirmed there was no results in the chart. I informed the patient I would call [facility] to get the results. He reports that it doesn't really matter now the so much time has past. I have called [facility] and spoke to Priya. She reports the test is negative and she will send the copy over to our office. INE CLOTHING MAN documented in this encounter Plan of Treatment Not on file documented as of this encounter Visit Diagnoses Not on filedocumented in this encounter Care Teams Ambulance Paramedic Relationship Specialty Start Date End Date Simon Lundberg MD [address] [place] [address] PCP - General Family Medicine 05/20/21 08/22/21 [place] [address] [address] Consulting Physician Endocrinology 05/20/21 [place] [address] [facility] [address], [place] [address] Consulting Physician Internal Medicine 05/20/21 documented as of this encounter
--- OUTSIDE RECORDS SUMMARY | 2024-05-08 07:35 | XMS_ITS | Encounter Summary ---
Author Organization 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
--- OUTSIDE RECORDS SUMMARY | 2024-05-08 07:35 | XMS_ITS | Encounter Summary ---
Author Organization [facility] Address [address] [facility] [address] [place] [address] Care Team Providers Care Tong Carrier Name Role Phone Simon Lundberg MD Primary Care Provider [phone] Nacho Rodriguez MD Unavailable [phone] Elian Gross MD Unavailable Reason for Visit * Reason Onset Date Comments Forms/questionnaires 05/31/2021 ADS Encounter Details Date Type Department Care Team (Late st Contact Info) Description 05/31/2021 Telephone [facility] [address] [facility] [address] [place] [address] [place] [address] [facility] [address] [place] [address] Forms/questionnaires (ADS) Social History Tobacco [...] on file 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 Lindo's desk for signature ESS DESCRIPTION WRITER documented in this encounter Plan of Treatment Not on file documented as of this encounter Visit Diagnoses Not on filedocumented in this encounter Care Teams Tong Carrier Relationship Specialty Start Date End Date Simon Lundberg MD [address] [place] [address] PCP - General Family Medicine 05/20/21 08/22/21 [place] [address] [address] [address] Consulting Physician Endocrinology 05/20/21 [place] [address] [address] [address] Consulting Physician Internal Medicine 05/20/21 documented as of this encounter
--- OUTSIDE RECORDS SUMMARY | 2024-05-08 07:35 | XMS_ITS | Encounter Summary ---
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 Gender Identity Male 10/29/2020 12:37 PM CDT Sexual Orientation Straight 10/29/2020 12 :37 PM CDT documented as of this encounter Miscellaneous Notes * Telephone Encounter - Ana Rosa Morris RN - 01/08/2021 3:23 PM CDT No answer documented in this encounter Plan of Treatment Not on file documented as of this encounter Visit Diagnoses Not on filedocumented in this encounter Care Teams Court Abstractor Relationship Specialty Start Date End Date Braydon Pavon PA [address] [place] [address] PCP - General Family Practice 05/09/20 05/19/21 Nikolay [place] MD [address] [place] [address] 05/09/20 05/19/21 documented as of this encounter
--- OUTSIDE RECORDS SUMMARY | 2024-05-08 07:35 | XMS_ITS | Encounter Summary ---
Author Organization [facility] Address [address] [facility] [address] [place] [address] Care Team Providers Care Director Oracle Name Role Phone Simon Lundberg MD Primary Care Provider [phone] Nacho Rodriguez MD Unavailable [phone] Elian Gross MD Unavailable Encounter Details Date Type Department Care Team (Late st Contact Info) Description 06/06/2021 Orders Only [facility] Primary Care at [address] [address] Simon Lundberg MD [address] [place] [address] [address] [place] [address] Social History Tobacco Use Types [...] on file 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 Gender Identity Male 10/29/2020 12:37 PM CDT Sexual Orientation Straight 10/29/2020 12 :37 PM CDT documented as of this encounter Plan of Treatment Not on file documented as of this encounter Visit Diagnoses Not on filedocumented in this encounter Care Teams Director Oracle Relationship Specialty Start Date End Date Simon Lundberg MD [address] [place] [address] PCP - General Family Medicine 05/20/21 08/22/21 [place] [address] [address] Consulting Physician Endocrinology 05/20/21 [place] [address] [address] [address] Consulting Physician Internal Medicine 05/20/21 documented as of this encounter
--- OUTSIDE RECORDS SUMMARY | 2024-05-08 07:35 | XMS_ITS | Encounter Summary ---
Author Organization [facility] Address [address] [facility] [address] [place] [address] Care Team Providers Care Buggy Driver Name Role Phone Simon Lundberg MD Primary Care Provider [phone] Nacho Rodriguez MD Unavailable [phone] Elian Gross MD Unavailable Encounter Details Date Type Department Care Team (Late st Contact Info) Description 08/21/2021 Telephone [facility] [address] [facility] [address] [place] [address] [place] [address] [facility] [address] [place] [address] Social History Tobacco Use Types [...] on file 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
--- OUTSIDE RECORDS SUMMARY | 2024-05-08 07:36 | XMS_ITS | Encounter Summary ---
Author Organization [facility] Healthcare Address [address] [place] [address] Care Team Providers Care Central Melt Specialist Name Role Phone Braydon Pavon Primary Care Provider [phone] Nikolay [place] MD Unavailable [phone] Simon Lundberg MD Primary Care Provider [phone] Nacho Rodriguez MD Unavailable [phone] Elian Gross MD Unavailable Braydon Pavon Primary Care Provider [phone] Encounter Details Date Type Department Care Team (Late st Contact Info) Description 09/14/2020 Telephone [facility] [address] [place], [place] [id number] Trice Aldana, RT Social History Tobacco Use [...] on file 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 Gender Identity Male 10/29/2020 12:37 PM CDT Sexual Orientation Straight 10/29/2020 12 :37 PM CDT documented as of this encounter Plan of Treatment Not on file documented as of this encounter Visit Diagnoses Not on filedocumented in this encounter Care Teams Central Melt Specialist Relationship Specialty Start Date End Date Braydon Pavon PA [address] [place] [address] PCP - General Family Practice 05/09/20 05/19/21 Simon Lundberg MD [address] [place] [address] PCP - General Family Medicine 05/20/21 08/22/21 Braydon Pavon PA [address] [place] [address] PCP - General 08/23/21 Nikolay [place] MD [address] [place] [address] 05/09/20 05/19/21 [place] [address] [address] [facility] [address], [place] [address] Consulting Physician Endocrinology 05/20/21 [place] [address] [address] [facility] [address], [place] [address] Consulting Physician Internal Medicine 05/20/21 documented as of this encounter
--- OUTSIDE RECORDS SUMMARY | 2024-05-08 07:36 | XMS_ITS | Encounter Summary ---
Author Organization [facility] Medical [facility] Address [address] [facility] [address] [place] [address] Care Team Providers Care Medical Office Technologist Name Role Phone Braydon Pavon Primary Care Provider [phone] Nikolay [place] MD Unavailable [phone] Reason for Visit * Reason Onset Date Comments Forms/questionnaires 10/31/2020 PA for Guidoem pic Encounter Details Date Type Department Care Team (Late st Contact Info) Description 10/31/2020 Telephone [facility] [address] [facility] [address] [address] [place] [address] [facility] [address], [place] [address] Forms/questionnaires (SONALI Kumar) Social History [...] on file 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 stating a PA is needed for Ozempic 1mg dose pen. PA started on CMM. Insurance will follow up/or call insurance with 5-business days. Lake: [id number] documented in this encounter Plan of Treatment [...] documented as of this encounter Care Teams Medical Office Technologist Relationship Specialty Start Date End Date Braydon Pavon PA [address] [place] [address] PCP - General Family Practice 05/09/20 05/19/21 Nikolay [place] MD [address] [place] [address] 05/09/20 05/19/21 documented as of this encounter
--- OUTSIDE RECORDS SUMMARY | 2024-05-08 07:36 | XMS_ITS | Encounter Summary ---
Author Organization [facility] Address [address] [place] [address] Phone Care Team Providers Care Flotation Operator Name Role Phone Braydon Pavon Primary Care Provider [phone] Nikolay [place] MD Unavailable Encounter Details Date Type Department Care Team (Late st Contact Info) Description 10/18/2020 Orders Only 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
--- OUTSIDE RECORDS SUMMARY | 2024-05-08 07:36 | XMS_ITS | Encounter Summary ---
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) Procedures US Liver W Complete Doppler (C) US Liver Doppler Elian Gross MD Phone: tel: fax: [place] [address] [place] [address] Referral ID Status Reason Start Date Expiration Date Visits Re quested Visits Authorized [id number] Closed 09/11/2020 10/01/2020 1 1 Reason for Visit * Diagnostic Imaging (Routine) - Closed Specialty Diagnoses / Procedures Referred By Jordan casillas Referred To Contact Diagnoses 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) Procedures US Liver W Complete Doppler (C) US Liver Doppler Eilan Gross MD Phone: tel: fax: [facility] [address] [place] [address] Referral ID Status Reason Start Date Expiration Date Visits Re quested Visits Authorized [id number] Closed 09/11/2020 10/01/2020 1 1 Encounter Details Date Type Department Care Team (Late st Contact Info) Description 10/08/2020 9:43 AM CDT - 10/08/2020 11:59 PM CDT Hospital Encounter [facility] [address] [place] [address] Elian Gross MD [address] [facility] [address] [place] [address] 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); S/P [...] on file 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 ?? Procedure Note Kroy Villareal MD - 10/08/2020 EXAMINATION: 1. LIVER [...] status documented in this encounter Care Teams Day Care Home Provider Relationship Specialty Start Date End Date Braydon Pavon PA [address] [place] [address] PCP - General Family Practice 05/09/20 05/19/21 Nikolay [place] MD [address] [place] [address] 05/09/20 05/19/21 documented as of this encounter
--- OUTSIDE RECORDS SUMMARY | 2024-05-08 07:36 | XMS_ITS | Encounter Summary ---
Author Organization [facility] Address [address] [facility] [address] [place] [address] Care Team Providers Care Completions Engineer Name Role Phone Braydon Pavon Primary Care Provider [phone] Nikolay [place] MD Unavailable [phone] Reason for Visit * Reason Onset Date Comments Surgical Clearance 09/06/2020 Encounter Details Date Type Department Care Team (Late st Contact Info) Description 09/06/2020 [facility] Automatic Shirring Machine Operator [address] [place] [address] [address] [place] [address] Monet Leigh MA Surgical Clearance [...] on file 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
--- OUTSIDE RECORDS SUMMARY | 2024-05-08 07:36 | XMS_ITS | Encounter Summary ---
Author Organization [facility] Medical [facility] Address [address] [facility] [address] [place] [address] Care Team Providers Care Retail Business Development Manager Name Role Phone Braydon Pavon Primary Care Provider [phone] Nikolay [place] MD Unavailable [phone] Reason for Visit * Reason Onset Date Comments Forms/questionnaires 10/31/2020 PA for Free style Elijah 2 Sensors Encounter Details Date Type Department Care Team (Late st Contact Info) Description 10/31/2020 Telephone [place] [facility] [address] 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 Denial scanned into pt's chart. Called and spoke with pt. Relayed this information. Pt voiced understanding and has no further questions. * Telephone Encounter - Jose Luis Goodrich MA - 10/31/2020 3:14 PM CDT Incoming fax from [employer] stating a PA is needed for Freestyle Elijah 2 Sensor. PA started on CMM. Check with insurance within 5-business days. Lake: [id number] documented in this encounter Plan of Treatment Not on file documented as of this encounter Visit Diagnoses Not on filedocumented in this encounter Care Teams Retail Business Development Manager Relationship Specialty Start Date End Date Braydon Pavon PA [address] [place] [address] PCP - General Family Practice 05/09/20 05/19/21 Nikolay [place] MD [address] [place] [address] 05/09/20 05/19/21 documented as of this encounter
--- OUTSIDE RECORDS SUMMARY | 2024-05-08 07:36 | XMS_ITS | Encounter Summary ---
Author Organization [facility] Healthcare Address [address] [place] [address] Care Team Providers Care Handbag Framer Name Role Phone Braydon Pavon Primary Care Provider [phone] Nikolay [place] MD Unavailable [phone] Encounter Details Date Type Department Care Team (Late st Contact Info) Description 12/17/2020 10:15 AM CDT - 12/17/2020 11:15 AM CDT Surgery [facility] Endoscopy [address] [place] [address] lEian Gross MD [address] [address] ESOPHAGOGASTRODUODENOSCOPY Surgery Details Date/Time Status Location OR Service Patient Class Case Class Case Type Trauma Case? 12/17/2020 10:[address] 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 * Procedural Sedation (AfterCare(R) Instructions(ER/ED)) (Slovak) documented in this encounter Medications at Time [...] hyperglycemia, with long-term current use of insulin ([facility]) One sensor every 14 days 6 kit [...] the skin every 7 days Sample Lot [id number] Exp 03/03/2023 x 2 pens 2 pen [...] 1 % gel 11/20/20 Tyler Page MD [id number] (Virtussin DAC) 2-20-6 mg/mL syrup every 6 [...] the skin every 7 days Sample Lot [id number] Exp 03/03/2023 x 2 pens 11/07/20 Nacho [...] Attending MD: Elian Draper M.D. Room: [facility] ENDOSCOPY ROOM 02 Note Status: Finalized [...] the physician, the nurse, the anesthesiologist, the director power and the measurement and sensing technician in the pre-procedure area in the [...] scope was passed under direct vision. The [id number] was introduced through the anus and advanced to the hepatic flexure. The colonoscopy was performed without difficulty. The patient tolerated the procedure well. The quality of the bowel preparation was unsatisfactory. The quality of the bowel preparation was evaluated using the BBPS ([place] Bowel Preparation Scale) with scores of: Right [...] Attending MD: Elian Draper M.D. Room: [facility] ENDOSCOPY ROOM 02 Note Status: Finalized [...] the physician, the nurse, the anesthesiologist, the director power and the measurement and sensing technician in the pre-procedure area in the [...] and oxygen saturations were monitored continuously. The [id number] was introduced through the mouth, and advanced [...] Bowel prep When you arrive, come to [facility] hospital entrance. There is a [address] with free oil mixer parking, or you may park in front [...] mask at all times My number is [phone] documented in this encounter Plan of Treatment [...] was last revised on 2014. POC Performer [id number] MOHINDER WARD POC Device Number [id number] MOHINDER WARD Glucose comment 1 RN/MD Notified MOHINDER WARD Blood 12/17/2020 11:0 4 AM CDT 12/17/2020 11:04 AM CDT us Elian Draper MD LAB POCT ORD ERABLES - DEVICE Final Result MOHINDER [facility] [address] [facility]. [place] [address] * Surgical pathology (12/17/2020 10:34 AM CDT) Tissue (Polyp(s), colon/colorectal, esophageal, gastric) 12/17/2020 10:34 AM CDT Narrative PATHOLOGY [facility] - 12/18/2020 2:08 PM CDT EPIC results best viewed via link to PDF [facility] [place] [address] Note to Patients: This report may contain [...] Gender: ??M : ??1970 (Age: 50) Address: ??[address] [place] [address] ??[address] Hospital #: ??[id number] Taken:12/17/2020 Received:12/17/2020 Reported: 12/18/2020 Patient Type: WC [...] for this case was performed at [facility], Department of Surgical Pathology, ??[facility] [address], [id number], ??[place], [place] ??[address] ?? CLIA [id number] History: The patient is a 50-year-old man [...] Pathology and Flow Cytometry Departments at [facility] as part of an ongoing software quality specialist program and in compliance with [...] Pathology and Flow Cytometry Departments of [facility]. ??It has not been cleared or approved by the U. S. Food and Drug Administration. IMAGES AND SCANNED DOCUMENTS, IF INCLUDED, ONLY VIEWABLE IN PDF VERSION OF REPORT us Elian Draper MD LAB PATHOLOG Y ORDERABLES Final Result Performing Organization Address City/[facility]/ZIP Co de Phone Number PATHOLOGY [facility] [phone] * (ABNORMAL) POCT glucose (12/17/2020 10:30 AM CDT) Glucose, POC 302(H) 70 - 199 mg/dL MOHINDER WARD Comment: Interpretive Data Glucose is assumed to be non-fasting. Fasting Glucose reference ranges are: 0 - 150 years: ??70 mg/dL - 99 mg/dL Current interpretive data was last revised on 2014. POC Performer [id number] MOHINDER [facility] POC Device Number [id number] [facility] Glucose comment 1 RN/MD Notified MOHINDER WARD Blood 12/17/2020 10:3 0 AM CDT 12/17/2020 10:30 AM CDT us Elian Draper MD LAB POCT ORD ERABLES - DEVICE Final Result Performing Organization Address [facility] Co de Phone Number [facility] [address] [facility] [place] [address] * COLONOSCOPY (12/17/2020 10:24 AM CDT) Anatomical Region Laterality Modality Other Narrative Procedure Note Elian Gross MD - 12/17/2020 10:24 AM CDT ENDOSCOPY LAB Patient Name: Camilo Curry Procedure Date: 12/17/2020 10:24 AM Date of : 1970 Admit Type: Outpatient Age: 50 Gender: Male Attending MD: Elian Vivar M.D. Room: [facility] ENDOSCOPY ROOM 02 Note Status: Finalized [...] the physician, the nurse, the anesthesiologist, the director power and thetechnician in the pre-procedure area in [...] The scope was passed under direct vision.The [id number] was introduced through the anusand advanced to the hepatic flexure. The colonoscopywas performed without difficulty. The patient tolerated the procedure well. The quality of the bowel preparation was unsatisfactory. The quality of the bowel preparation was evaluated using the BBPS([place] Bowel Preparation Scale) with scores of: RightColon [...] 10:24 AM us Elian Draper MD ENDOSCOPY [place] OCEDURES Final Result * EGD (12/17/2020 10:01 AM CDT) Anatomical Region Laterality Modality Other Narrative Procedure Note Elian Gross MD - 12/17/2020 10:01 AM CDT ENDOSCOPY LAB Patient Name: Camilo Curry Procedure Date: 12/17/2020 10:01 AM Date of : 1970 Admit Type: Outpatient Age: 50 Gender: Male Attending MD: Elian Vivar M.D. Room: [facility] ENDOSCOPY ROOM 02 Note Status: Finalized [...] the physician, the nurse, the anesthesiologist, the director power and thetechnician in the pre-procedure area in [...] and oxygen saturations were monitored continuously. The [id number] was introduced through the mouth, and advanced [...] 10:01 AM us Elian Draper MD ENDOSCOPY [place] OCEDURES Final Result * (ABNORMAL) POCT glucose (12/17/2020 9:40 AM CDT) [facility] Glucose, POC 278(H) 70 - 199 mg/dL MOHINDER WARD Comment: Interpretive Data Glucose is assumed to be non-fasting. Fasting Glucose reference ranges are: 0 - 150 years: ??70 mg/dL - 99 mg/dL Current interpretive data was last revised on 2014. POC Performer [id number] MOHINDER LITTLE POC Device Number [id number] MOHINDER [facility] Blood 12/17/2020 9:40 AM CDT 12/17/2020 9:40 AM CDT us Elian Draper MD LAB POCT ORD ERABLES - DEVICE Final Result [facility]ER [facility] [address] [facility] [place] [address] documented in this encounter Visit Diagnoses Diagnosis [...] 12/17/2020 documented in this encounter Care Teams Handbag Framer Relationship Specialty Start Date End Date Braydon Pavon PA [address] [place] [address] PCP - General Family Practice 05/09/20 05/19/21 Nikolay [place] MD [address] [address] 05/09/20 05/19/21 documented as of this encounter
--- OUTSIDE RECORDS SUMMARY | 2024-05-08 07:36 | XMS_ITS | Encounter Summary ---
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COPY ROOM 02 / [facility] Anesthesia Start: 1002 Anesthesia Stop: 1049 [...] anesthesia Difficult airway: no Staff: Placed by: MANUFACTURING SALES REPRESENTATIVE: Judi Vu CRNA Airway prep: Preoxygenated: yes [...] a month 11/20/20 -- Tyler Page MD [id number] (Virtussin DAC) 2-20-6 mg/mL syrup More than [...] the skin every 7 days Sample Lot [id number] Exp 03/03/2023 x 2 pens traMADol (ULTRAM) [...] Medication protocol when under care of a MANUFACTURING SALES REPRESENTATIVE Planned anesthesia: General Informed Consent: Anesthesia plan [...] Name Priority Date/Time Associated Diagnosis Comments [place] AN PROCEDURE PLACEHOLDER Routine 12/17/2020 10:18 AM CDT [place] AN ELECTIVE ENDOTRACHEAL AIRWAY Routine 12/17/2020 10:18 AM CDT documented in this encounter Results * [place] AN ELECTIVE ENDOTRACHEAL AIRWAY, [place] AN PROCEDURE PLACEHOLDER (12/17/2020 10:18 AM CDT) Narrative Judi Vu CRNA - 12/17/2020 10:18 AM CDT Judi Vu CRNA ? 12/17/2020 10:18 AM Airway Patient location: OR Urgency: elective Indications for airway management: anesthesia Difficult airway: no Staff: Placed by: MANUFACTURING SALES REPRESENTATIVE: Judi Vu CRNA Airway prep: Preoxygenated: yes [...] mg documented in this encounter Care Teams Obgyn Specialist Relationship Specialty Start Date End Date Braydon Pavon PA [address] [place] [address] PCP - General Family Practice 05/09/20 05/19/21 Nikolay Lancaster MD [address] [address] 05/09/20 05/19/21 documented as of this encounter
--- OUTSIDE RECORDS SUMMARY | 2024-05-08 07:36 | XMS_ITS | Encounter Summary ---
Author Organization [facility] Address [address] [place] [address] Phone Care Team Providers Care Rivet Tosser Name Role Phone Braydon Pavon Primary Care Provider [phone] Nikolay Lancaster MD Unavailable [phone] Reason for Visit * Reason Onset Date Comments GI Pre Procedure Assessment 11/27/2020 Encounter Details Date Type Department Care Team (Late st Contact Info) Description 11/27/2020 Telephone [facility] G[facility]ology [address] [facility] 8[address] [place] [address] [place] [address] Faith Hooker GI Pre Procedure [...] on file 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 ----- Message from Brianna Vázquez LPN sent [...] Chest pain noted in the past, local bricklayer sewer cleared him for procedures RESPIRATORY/LUNG: None RENAL/LIVER/GI: Cirrhosis- If therapeutic procedure (other than EGD for varices) or if colonoscopy,need recent plt>50 and fibrinogen >120. Otherwise escalate to physician to consider cryoprecipiate or BRIT BLEEDING/CLOTTING: None NEUROLOGICAL: None ENDOCRINE: Diabetes- No BG above 250 or AIC >10 for SC. No BG =>400 for [facility]. Bg>300 at [facility] may get rescheduled PRIOR PROCEDURE ISSUES: None HEMMER LOCKSTITCH/: NA IMPLANTS.: None Notes: DIABETIC MEDS Y/N: [...] [] Location limitations: Scheduling Scheduling location limitations:NONE Skid Wrapper needed [x] NA Language: POA [x] NA Name: SPECIAL PROCEDURE INSTRUCTIONS Procedure information Date of procedure: 12-17-2020 Time of procedure: 10:15 am Arrival time: 9:15 am Location: [facility] Proceduralist: Elian Estrada Instructions Method of instructions: Mailed copy and Verbal [x]Confirmation of ride/dentures lab technician [x]Post anesthesia restrictions given [x]NPO Instructions: [x]Diet [...] on filedocumented in this encounter Care Teams Rivet Tosser Relationship Specialty Start Date End Date Braydon Pavon PA [address] [place] [address] PCP - General Family Practice 05/09/20 05/19/21 Nikolay Lancaster MD [address] [place] [address] 05/09/20 05/19/21 documented as of this encounter
--- OUTSIDE RECORDS SUMMARY | 2024-05-08 07:36 | XMS_ITS | Encounter Summary ---
Author Organization [facility] Address [address] [place] [address] Phone Care Team Providers Care Cancer Registry Coordinator Name Role Phone Braydon Pavon Primary Care Provider [phone] Nikolay Lancaster MD Unavailable [phone] Encounter Details Date Type Department Care Team (Late st Contact Info) Description 08/30/2020 10:25 AM CDT Lab [facility] [address] [facility] [address] 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 Comment: Interpretive Data Reference Interval Normal ?>/= [...] LAB BLOOD OR DERABLES Final Result [facility] [address] [facility]. [place] [address] * (ABNORMAL) CBC without differential (08/30/2020 10:27 AM CDT) WBC 3.3(L) 3.8 - 9.9 K/cumm [facility] Hgb 8.4(L) 13.0 - 17.5 g/dL [facility] Hct 31.1(L) 38.9 - 50.3 % [facility] Plt 80(L) 150 - 400 K/cumm [facility] MPV 10.4 9.1 - 12.3 fL [facility] RBC 4.42 4.30 - 5.80 M/cumm [facility] MCV 70(L) 81 - 96 fL [facility] MCH 19.0(L) 27.1 - 33.3 pg [facility] MCHC 27.0(L) 32.3 - 35.7 g/dL [facility] RDW CV 18.0(H) 11.1 - 14.9 % [facility] RDW SD 44.9 35.7 - 48.1 fL [facility] Blood specimen (specimen) 08/30/2020 10:27 AM CDT 08/30/2020 10:28 AM CDT us Elian Draper MD LAB BLOOD OR DERABLES Final Result [facility] [address] [facility] Department [place] [address] * (ABNORMAL) Comprehensive metabolic panel (08/30/2020 10:27 AM CDT) Sodium 138 135 - 145 mmol/L [facility] Comment:MOB2 Potassium, pl 4.1 3.3 - 4.9 mmol/L [facility] Comment:MOB2 Chloride 99 97 - 110 mmol/L [facility] Comment:MOB2 CO2 26 22 - 32 mmol/L [facility] Comment:MOB2 Anion gap 13 2 - 15 mmol/L [facility] Comment:MOB2 BUN 15 8 - 25 mg/dL [facility] Comment:MOB2 Creatinine 0.66(L) 0.80 - 1.30 mg/dL [facility] Comment:MOB2 Glucose 377(H) 70 - 199 mg/dL [facility] Comment: Result called by [id number] at 2020-08-30 11:39:26. Result Read Back by [...] total 1.1 0.1 - 1.2 mg/dL [facility] Comment:MOB2 Protein, pl 7.0 6.5 - 8.5 g/dL [facility] Comment:MOB2 Albumin 3.9 3.5 - 5.0 g/dL [facility] Comment:MOB2 Alk phos 71 40 - 130 Units/L [facility] Comment:MOB2 ALT 67(H) 7 - 55 Units/L [facility] Comment:MOB2 AST 68(H) 10 - 50 Units/L [facility] Comment:MOB2 Blood specimen (specimen) 08/30/2020 10:27 AM CDT 08/30/2020 11:00 AM CDT us Elian Draper MD LAB BLOOD OR DERABLES Final Result Performing Organization Address [facility] de Phone Number [facility] [address] [place] [address] * (ABNORMAL) Protime-INR (08/30/2020 10:27 AM CDT) PT 14.8(H) 11.5 - 14.[address] [facility] INR 1.1 0.9 - 1.[address] [facility] Comment: Interpretive data Oral anticoagulant therapeutic ranges: [...] OR DERABLES Final Result Performing Organization Address [facility] Co de Phone Number [facility] [address] [employer] [place] [address] * [id number], Tumor Marker (08/30/2020 10:27 AM CDT) alpha Fetoprotein 3.5 0.0 - 8.3 ng/mL [facility] Comment: Interpretive Data On July 29, 2016 new Chemistry Instrumentation was implemented. ??If you have any questions, please contact the Laboratory at [phone]. Testing performed by: [facility], [facility] [facility], [place]., [address] Blood specimen (specimen) 08/30/2020 10:27 AM CDT 08/30/2020 12:11 PM CDT us Elian Draper MD LAB BLOOD OR DERABLES Final Result [facility] [address] [facility]. 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
--- OUTSIDE RECORDS SUMMARY | 2024-05-08 07:36 | XMS_ITS | Encounter Summary ---
Author Organization [facility] Healthcare Address [address] [place] [address] Care Team Providers Care Vending Machine Repairer Name Role Phone Braydon Pavon Primary Care Provider [phone] Nikolay Lancaster MD Unavailable [phone] Encounter Details Date Type Department Care Team (Late st Contact Info) Description 12/17/2020 8:33 AM CDT - 12/17/2020 11:54 AM CDT Hospital Encounter [facility] [address] [place] [address] Elian Gross MD [address] [facility] [address] [place] [address] Hepatic cirrhosis, unspecified hepatic cirrhosis type, unspecified [...] file Legal 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 * Procedural Sedation (AfterCare(R) Instructions(ER/ED)) (Citizen Of [place]) documented in this encounter Medications at Time [...] the skin every 7 days Sample Lot [id number] Exp 03/03/2023 x 2 pens 2 pen [...] 1 % gel 11/20/20 Tyler Page MD [id number] (Virtussin DAC) 2-20-6 mg/mL syrup every 6 [...] the skin every 7 days Sample Lot [id number] Exp 03/03/2023 x 2 pens 11/07/20 Nacho [...] Male Attending MD: Elian Draper M.D. Room: [facility] ENDOSCOPY ROOM 02 Note Status: Finalized [...] the physician, the nurse, the anesthesiologist, the cancer center director and the residential appliance repair technician in the pre-procedure area in the [...] scope was passed under direct vision. The [id number] was introduced through the anus and advanced to the hepatic flexure. The colonoscopy was performed without difficulty. The patient tolerated the procedure well. The quality of the bowel preparation was unsatisfactory. The quality of the bowel preparation was evaluated using the BBPS (Des Arc Bowel Preparation Scale) with scores of: Right [...] Male Attending MD: Elian Draper M.D. Room: [facility] END[facility]COPY ROOM 02 Note Status: Finalized [...] the physician, the nurse, the anesthesiologist, the cancer center director and the residential appliance repair technician in the pre-procedure area in the [...] and oxygen saturations were monitored continuously. The [id number] was introduced through the mouth, and advanced [...] Bowel prep When you arrive, come to [facility] hospital entrance. There is a [address] with free museum guide parking, or you may park in front [...] mask at all times My number is [phone] documented in this encounter Plan of Treatment [...] was last revised on 2014. POC Performer [id number] [facility] POC Device Number [id number] [facility] Glucose comment 1 RN/MD Notified [facility] Blood 12/17/2020 11:0 4 AM CDT 12/17/2020 11:04 AM CDT us Elian Draper MD LAB POCT ORD ERABLES - DEVICE Final Result [facility] [address] [facility]. Department [place] [address] * Surgical pathology (12/17/2020 10:34 AM CDT) Tissue (Polyp(s), colon/colorectal, esophageal, gastric) 12/17/2020 10:34 AM CDT Narrative [facility] - 12/18/2020 2:08 PM CDT EPIC results best viewed via link to PDF [facility] [place] [address] Note to Patients: This report may contain [...] Gender: ??M : ??1970 (Age: 50) Address: ??[address] [place] [address] Hospital #: ??[id number] Taken:12/17/2020 Received:12/17/2020 Reported: 12/18/2020 Patient Type: WC SDS Client ?[facility] Service: Gastro Location: [facility] Physician(s): ??Amber Browning PA Diagnosis: [...] interpretation for this case was performed at [facility], Department of Surgical Pathology, ??[facility], [place] [id number], ??[place], [place] ??[address] ?? CLIA [id number] History: The patient is a 50-year-old man [...] Surgical Pathology and Flow Cytometry Departments at [facility] as part of an ongoing director supplier quality program and in compliance with federally mandated [...] Surgical Pathology and Flow Cytometry Departments of [facility]. ??It has not been cleared or approved by the U. S. Food and Drug Administration. IMAGES AND SCANNED DOCUMENTS, IF INCLUDED, ONLY VIEWABLE IN PDF VERSION OF REPORT us Elian Draper MD LAB PATHOLOG Y ORDERABLES Final Result Performing Organization Address [facility] Co de Phone Number [facility] [phone] * (ABNORMAL) POCT glucose (12/17/2020 10:30 AM CDT) Glucose, POC 302(H) 70 - 199 mg/dL [facility] Comment: Interpretive Data Glucose is assumed to be non-fasting. Fasting Glucose reference ranges are: 0 - 150 years: ??70 mg/dL - 99 mg/dL Current interpretive data was last revised on 2014. POC Performer [id number] MOHINDER WARD POC Device Number [id number] [facility] Glucose comment 1 RN/MD Notified [facility] Blood 12/17/2020 10:3 0 AM CDT 12/17/2020 10:30 AM CDT us Elian Draper MD LAB POCT ORD ERABLES - DEVICE Final Result Performing Organization Address City/[facility]/ZIP Co de Phone Number [facility] [address] [facility]. [place] [address] * COLONOSCOPY (12/17/2020 10:24 AM CDT) Anatomical Region Laterality Modality Other Narrative Procedure Note Elian Gross MD - 12/17/2020 10:24 AM CDT ENDOSCOPY LAB Patient Name: Camilo Curry Procedure Date: 12/17/2020 10:24 AM Date of : 1970 Admit Type: Outpatient Age: 50 Gender: Male Attending MD: Elian Vivar M.D. Room: [facility] END[facility]COPY RO[facility] 02 Note Status: Finalized [...] the physician, the nurse, the anesthesiologist, the cancer center director and thetechnician in the pre-procedure area in [...] The scope was passed under direct vision.The [id number] was introduced through the anusand advanced to the hepatic flexure. The colonoscopywas performed without difficulty. The patient tolerated the procedure well. The quality of the bowel preparation was unsatisfactory. The quality of the bowel preparation was evaluated using the BBPS(Des Arc Bowel Preparation Scale) with scores of: RightColon [...] 10:24 AM us Elian Draper MD ENDOSCOPY [place] OCEDURES Final Result * EGD (12/17/2020 10:01 AM CDT) Anatomical Region Laterality Modality Other Narrative Procedure Note Elian Gross MD - 12/17/2020 10:01 AM CDT ENDOSCOPY LAB Patient Name: Camilo Curry Procedure Date: 12/17/2020 10:01 AM Date of : 1970 Admit Type: Outpatient Age: 50 Gender: Male Attending MD: Elian Vivar M.D. Room: [facility] END[facility]COPY ROOM 02 Note Status: Finalized [...] the physician, the nurse, the anesthesiologist, the cancer center director and thetechnician in the pre-procedure area in [...] and oxygen saturations were monitored continuously. The [id number] was introduced through the mouth, and advanced [...] 10:01 AM us Elian Draper MD ENDOSCOPY [place] OCEDURES Final Result * (ABNORMAL) POCT glucose (12/17/2020 9:40 AM CDT) Glucose, POC 278(H) 70 - 199 mg/dL [facility] Comment: Interpretive Data Glucose is assumed to be non-fasting. Fasting Glucose reference ranges are: 0 - 150 years: ??70 mg/dL - 99 mg/dL Current interpretive data was last revised on 2014. POC Performer [id number] [facility] POC Device Number [id number] [facility] Blood 12/17/2020 9:40 AM CDT 12/17/2020 9:40 AM CDT us Elian Draper MD LAB POCT ORD ERABLES - DEVICE Final Result [facility] [address] [facility] Department [place] [address] documented in this encounter Visit Diagnoses Diagnosis [...] 12/17/2020 documented in this encounter Care Teams Vending Machine Repairer Relationship Specialty Start Date End Date Braydon Pavon PA [address] [place] [address] PCP - General Family Practice 05/09/20 05/19/21 Nikolay Lancaster MD [address] [address] 05/09/20 05/19/21 documented as of this encounter
--- OUTSIDE RECORDS SUMMARY | 2024-05-08 07:36 | XMS_ITS | Encounter Summary ---
Author Organization [facility] Address [address] [place] [address] Care Team Providers Care Rug Cleaner Name Role Phone Braydon Pavon Primary Care Provider [phone] Nikolay Lancaster MD Unavailable [phone] Reason for Visit * Reason Comments Diabetes Type 2 Encounter Details Date Type Department Care Team (Latest Contact Info) Description 10/29/2020 2:30 PM CDT Office Visit [facility] [address] [phone] Guicho Lindo, [place] [id number] [address] Type 2 diabetes mellitus with hyperglycemia, with long-term current use of insulin (CMS/[facility]) (Primary Dx); Diabetic neuropathy associated with type [...] on file 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 [facility] Consult Note Subjective/Objective Patient ID: Camilo [...] PEN NEEDLE 31 gauge x 5/16 needle [id number] (Virtussin DAC) 2-20-6 mg/mL syrup HUMULIN R [...] 1.59 11/03/2015 No results found for: MICROALBUR, [id number] Lab Results Component Value Date CHOL 115 [...] long-term current use of insulin ([facility]) (Primary) Assessment & Plan: Chronic, uncontrolled, worsening [...] - follow up in 6 weeks with SPONGE CLIPPER Chelsea Driscoll ( to discuss about insulin [...] neuropathy associated with type 2 diabetes mellitus ([facility]) Assessment & Plan: Chronic, worsening Start, gabapentin [...] (BMI) of 40.0 to 44.9 in adult ([facility]) Assessment & Plan: Counseled on diet and exercise Nacho Lindo MD documented in this encounter Miscellaneous Notes * Assessment & Plan Note - Nacho Rodriguez MD - 10/29/2020 4:23 PM CDTAssociated Problem(s): Diabetes mellitus, type 2 ([facility]) Chronic, uncontrolled, worsening HbA1c - 9.8 % [...] - follow up in 6 weeks with SPONGE CLIPPER Chelsea Driscoll ( to discuss about insulin pumps ) And in [address] Lindo * Assessment & Plan Note - Nacho Rodriguez MD - 10/29/2020 4:23 PM CDTAssociated Problem(s): Diabetic neuropathy associated with type 2 diabetes mellitus ([facility]) ([facility]) Chronic, worsening Start, gabapentin therapy Work on better diabetic control * Assessment & Plan Note - Nacho Rodriguez MD - 10/29/2020 4:23 PM CDTAssociated Problem(s): Morbid obesity with body mass index (BMI) of 40.0 to 44.9 in adult ([facility]) Counseled on diet and exercise * Assessment [...] long-term current use of insulin ([facility]) Expected: 10/29/2020, Expires: 10/29/2021 Albumin Creatinine Ratio, Urine Lab Routine Type 2 diabetes mellitus with hyperglycemia, with long-term current use of insulin ([facility]) Expected: 10/29/2020, Expires: 10/29/2021 Vitamin D 25 hydroxy Lab Routine Vitamin D deficiency Expected: 10/29/2020, Expires: 10/29/2021 TSH reflex to free T4 Lab Routine Type 2 diabetes mellitus with hyperglycemia, with long-term current use of insulin ([facility]) Expected: 10/29/2020, Expires: 10/29/2021 Lipid panel Lab Routine Type 2 diabetes mellitus with hyperglycemia, with long-term current use of insulin ([facility]) Expected: 10/29/2020, Expires: 10/29/2021 documented as of this encounter Procedures Procedure Name Priority Date/Time Associated Diagnosis Comments POCT HEMOGLOBIN A1C Routine 10/29/2020 2 :47 PM CDT Type 2 diabetes mellitus with hyperglycemia, with long-term current use of insulin ([facility]) POCT GLUCOSE Routine 10/29/2020 2:47 PM CDT Type 2 diabetes mellitus with hyperglycemia, with long-term current use of insulin ([facility]) documented in this encounter Results * POCT [...] neuropathy associated with type 2 diabetes mellitus ([facility]/HCC) (HCC) Vitamin D deficiency Morbid obesity with body mass index (BMI) of 40.0 to 44.9 in adult ([facility]) documented in this encounter Care Teams Rug Cleaner Relationship Specialty Start Date End Date Braydon Pavon PA [address] [place] [address] PCP - General Family Practice 05/09/20 05/19/21 Nikolay Lancaster MD [address] [address] 05/09/20 05/19/21 documented as of this encounter
--- OUTSIDE RECORDS SUMMARY | 2024-05-08 07:36 | XMS_ITS | Encounter Summary ---
Author Organization [facility] Address [address] [place] [address] Care Team Providers Care Technical Developer Name Role Phone Braydon Pavon Primary Care Provider [phone] Nikolay Lancaster MD Unavailable [phone] Simon Lundberg MD Primary Care Provider [phone] Nacho Rodriguez MD Unavailable [phone] Elian Gross MD Unavailable Braydon Pavno Primary Care Provider [phone] Encounter Details Date Type Department Care Team (Late st Contact Info) Description 10/05/2020 Telephone [facility] [address] [place], [place] [id number] Trice Aldana, RT Social History Tobacco Use [...] on file 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 Gender Identity Male 10/29/2020 12:37 PM CDT Sexual Orientation Straight 10/29/2020 12 :37 PM CDT documented as of this encounter Plan of Treatment Not on file documented as of this encounter Visit Diagnoses Not on filedocumented in this encounter Care Teams Technical Developer Relationship Specialty Start Date End Date Braydon Pavon PA [address] [place] [address] PCP - General Family Practice 05/09/20 05/19/21 Simon Lundberg MD [address] [place] [address] PCP - General Family Medicine 05/20/21 08/22/21 Braydon Pavon PA [address] [place] [address] PCP - General 08/23/21 Nikolay aLncaster MD [address] [place] [address] 05/09/20 05/19/21 [place] [address] [address] [facility] [address] [address] Consulting Physician Endocrinology 05/20/21 [place] [address] [address] [facility] [address] [address] Consulting Physician Internal Medicine 05/20/21 documented as of this encounter
--- OUTSIDE RECORDS SUMMARY | 2024-05-08 07:36 | XMS_ITS | Encounter Summary ---
Author Organization [facility] Address [address] [place] [address] Phone Care Team Providers Care Shucker Name Role Phone Braydon Pavon Primary Care Provider [phone] Nikolay Lancaster MD Unavailable [phone] Reason for Visit * Reason Onset Date Comments Cardiac Clearance for EGD/Colon 09/06/2020 Encounter Details Date Type Department Care Team (Late st Contact Info) Description 09/06/2020 Telephone [facility] Gastroenterology 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 Estrada at [facility]. He accepted. We discussed his prep and the need for a utility driver. He is diabetic andwill hold his AM dose of medication on the day of the procedure. I sent the bowel prep script to [facility] in [place] and I am mailing him prep instructions. He denies any recent covid symptoms or exposures and will contact the office if this changes. * Telephone Encounter - Zara Aguilar BS - 09/11/2020 11:59 AM CDT Received a call from Verónica at hatch boss office stating that patient is at no increase cardiac risk and that there was a clearance note in Epic. * Telephone Encounter - Faith Sweet - 09/06/2020 2:48 PM CDT I spoke with Camilo and confirmed his hatch boss is Timothy Peterson at [facility]. He states he was treatedfor chest pain [...] office and left a message with the ward secretary who is sending my message to the doctor for recommendations. The ward secretary did mention, Camilo was seen in May and Dr. Peterson ordered a Echo and a stress test for further evaluation. Camilo no showed both appointments and has not rescheduled. The ward secretary does not believe Dr. Peterson will offer [...] 10/16/2020 documented in this encounter Care Teams Shucker Relationship Specialty Start Date End Date Braydon Pavon PA [address] [place] [address] PCP - General Family Practice 05/09/20 05/19/21 Nikolay Lancaster MD [address] [place] [address] 05/09/20 05/19/21 documented as of this encounter
--- OUTSIDE RECORDS SUMMARY | 2024-05-08 07:37 | XMS_ITS | Encounter Summary ---
Author Organization [facility] Address [address] [place] [address] Phone Care Team Providers Care Carpet Installer Name Role Phone Kris Soto MD Primary Care Provide r Encounter Details Date Type Department Care Team (Late st Contact Info) Description 02/04/2018 Telephone [facility] Gastroenterology [address] [place] [address] 8th [place] [address] [place] [address] Christiana Carrillo RN Social History Tobacco Use Types Packs/Day Years Used Date Smoking Tobacco: Former Smokeless Tobacco: Never Alcohol Use Standard Drinks/Week Comments No 0 (1 standard drink = 0.6 oz pur e alcohol) Sex and Gender Information Value Date Recorded Sex Assigned at Not on file 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
--- OUTSIDE RECORDS SUMMARY | 2024-05-08 07:37 | XMS_ITS | Encounter Summary ---
Author Organization [facility] Address [address] [facility] [address] [place] [address] Phone Care Team Providers Care Staffing Specialist Name Role Phone Kris Soto MD Primary Care Provide r Encounter Details Date Type Department Care Team (Latest Contact Info) Description 02/22/2018 8:30 AM CDT Office Visit [facility] Gastroenterology [address] [facility] 2nd [address] [place] [address] Kathryn Ellis MD [address] [facility] [address] [place] [address] S/P TIPS (transjugular intrahepatic portosystemic [...] on file 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 Kathryn Ellis M.D. Mirror Department Supervisor Hepatology Program documented in this encounter Plan [...] of liver (CMS/HCC) Expected: 02/22/2018, Expires: 02/22/2019 [id number], Tumor Marker Lab Routine S/P TIPS (transjugular [...] 05/09/2020 added in this encounter Care Teams Staffing Specialist Relationship Specialty Start Date End Date Kris Soto MD [address] [place] [address] PCP - General 12/08/16 10/26/18 documented as of this encounter
--- OUTSIDE RECORDS SUMMARY | 2024-05-08 07:37 | XMS_ITS | Encounter Summary ---
Author Organization [facility] Address [address] [place] [address] Care Team Providers Care Jigger Artisan Name Role Phone Braydon Pavon Primary Care Provider [phone] Nikolay Lancaster MD Unavailable [phone] Encounter Details Date Type Department Care Team (Late st Contact Info) Description 05/16/2020 [facility]phone [facility] [address] [place] [address] Fili Peacock MD [address] [place] [address] [address] [place] [address] Social History Tobacco Use Types Packs/Day Years Used Date Smoking Tobacco: Former Smokeless Tobacco: Never Alcohol Use Standard Drinks/Week Comments No 0 (1 standard drink = 0.6 oz pur e alcohol) Sex and Gender Information Value Date Recorded Sex Assigned at Not on file Legal Sex Male 2:52 PM FORM RAISER Gender Identity Male 10/29/2020 12:37 PM CDT Sexual Orientation Straight 10/29/2020 12 :37 PM CDT documented as of this encounter Miscellaneous Notes * Telephone Encounter - Mariann Rayo - 05/16/2020 3:20 PM CST Scheduled pt for 05/24/20 w/Dr Peacock. RAISER * Telephone Encounter - Mia Matta - 05/16/2020 1:35 PM CST DOUBLE CUTTER uncontrolled DM2 Schedule with Madonna PLEITEZ 05/16/20 RAISER documented in this encounter Plan of Treatment Not on file documented as of this encounter Visit Diagnoses Not on filedocumented in this encounter Care Teams Jigger Artisan Relationship Specialty Start Date End Date Braydon Pavon PA [address] [place] [address] PCP - General Family Practice 05/09/20 05/19/21 Nikolay Lancaster MD [address] [place] [address] 05/09/20 05/19/21 documented as of this encounter
--- OUTSIDE RECORDS SUMMARY | 2024-05-08 07:37 | XMS_ITS | Encounter Summary ---
Author Organization [facility] Medical [facility] Address [address] [place] [address] Care Team Providers Care Rebar Worker Name Role Phone Braydon Pavon Primary Care Provider [phone] Nikolay Lancaster MD Unavailable [phone] Reason for Visit * Reason Comments New Patient Valve Disorder Encounter Details Date Type Department Care Team (Late st Contact Info) Description 05/14/2020 11:00 AM ASSISTANT REFINERY OPERATOR Office Visit [facility] [address] [facility] [address] [place] [phone] Timothy Peterson, 2 [facility] [address] [place] [address] Chest pain, unspecified type (Primary Dx); Bacterial [...] on file Legal Sex Male 2:52 PM ASSISTANT REFINERY OPERATOR Gender Identity Male 10/29/2020 12:37 PM CDT Sexual Orientation Straight 10/29/2020 12 :37 PM CDT documented as of this encounter Last Filed Vital Signs Vital Sign Reading Time Taken Comments Blood Pressure 139/77 05/14/2020 10:47 AM ASSISTANT REFINERY OPERATOR Pulse 102 05/14/2020 10:47 AM ASSISTANT REFINERY OPERATOR Temperature 37 ??C (98.6 ??F) 05/14/2020 10:47 AM ASSISTANT REFINERY OPERATOR Respiratory Rate 16 05/14/2020 10:47 AM ASSISTANT REFINERY OPERATOR Oxygen Saturation - - Inhaled Oxygen Concentration - - Weight 122.9 kg (271 lb) 05/14/2020 10:47 AM ASSISTANT REFINERY OPERATOR Height 172.7 cm (5' 8 ) 05/14/2020 10:47 AM ASSISTANT REFINERY OPERATOR Body Mass Index 41.21 05/14/2020 10:47 AM ASSISTANT REFINERY OPERATOR documented in this encounter Progress Notes [...] duodenal polyposis, gallstones, DM, was hospitalized in [place] the end of February 2020 for fever [...] & Plan: Unfortunately the patient's records from [place] are not available for my review. We [...] (BMI) of 40.0 to 44.9 in adult ([facility]) Dyspnea on exertion Assessment & Plan: The patient's dyspnea on exertion is likely multifactorial but I will further investigate potentialcardiac etiology with assessment of filling pressures on echocardiography. Due to the patient's diabetes, morbid obesity, advancing age he is at high risk for development of heart failure. Return for Follow-up testing with [facility]. 11:12 AM Timothy Peterson DO Cc:Braydon Pavon PA STANT REFINERY OPERATOR documented in this encounter Miscellaneous Notes * Assessment & Plan Note - Timothy Peterson DO - 05/14/2020 11:11 AM ASSISTANT REFINERY OPERATOR Associated Problem(s): Dyspnea on exertion The patient's dyspnea on exertion is likely multifactorial but I will further investigate potentialcardiac etiology with assessment of filling pressures on echocardiography. Due to the patient's diabetes, morbid obesity, advancing age he is at high risk for development of heart failure. STANT REFINERY OPERATOR * Assessment & Plan Note - Timothy Peterson DO - 05/14/2020 11:07 AM ASSISTANT REFINERY OPERATOR Associated Problem(s): Bacterial endocarditis Unfortunately the patient's records from [place] are not available for my review. We [...] additional cardiovascular workup/follow- up will be necessary. STANT REFINERY OPERATOR documented in this encounter Plan of Treatment Not on file documented as of this encounter Visit Diagnoses Diagnosis Chest pain, unspecified type- Primary Bacterial endocarditis, unspecified chronicity Morbid obesity with body mass index (BMI) of 40.0 to 44.9 in adult ([facility]) Dyspnea on exertion Other dyspnea and [...] 01/20/2024 added in this encounter Care Teams Rebar Worker Relationship Specialty Start Date End Date Braydon Pavon PA [address] [place] [address] PCP - General Family Practice 05/09/20 05/19/21 Nikolay Lancaster MD [address] [address] 05/09/20 05/19/21 documented as of this encounter
--- OUTSIDE RECORDS SUMMARY | 2024-05-08 07:37 | XMS_ITS | Encounter Summary ---
Author Organization [facility] Healthcare Address [address] [place] [address] Care Team Providers Care Joiners Supervisor Name Role Phone Nikolay Lancaster MD Primary Care Provider Kris Soto MD Unavailable [phone] Encounter Details Date Type Department Care Team (Late st Contact Info) Description 10/27/2018 8:02 PM CDT - 10/28/2018 12:52 AM CDT Hospital Encounter [address] [address] Unknown, Ector Grijalva MD [address] [place] [address] Discharge Disposition: Discharge to home or self care Social History Tobacco Use Types Packs/Day Years Used Date Smoking Tobacco: Never Assessed Sex and Gender Information Value Date Recorded Sex Assigned at Not on file 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 Gender Identity Male 10/29/2020 12:37 PM [...] 10:36 PM CDT) Blood Type Confirm AP [facility] 10/27/2018 10:3 6 PM CDT 10/27/2018 10:37 PM CDT Narrative Resulting Agency Comment ER us Ector Bermudez MD LAB BLOOD ORDERABLES Final Result Performing Organization Address City/[facility]/ZIP Co de Phone Number [address] [phone] * Antibody screen (10/27/2018 10:17 PM CDT) Antibody Screen NEGATIVE [facility] 10/27/2018 10:1 7 PM CDT 10/27/2018 10:28 PM CDT Narrative Resulting Agency Comment ER us Ector Bermudez MD LAB BLOOD BANK TEST O RDERABLES Final Result Performing Organization Address [facility]/[place]IP [place] [address], [facility] [[email or web address]] [phone] * Type and screen (10/27/2018 10:17 PM CDT) Blood Type AP [facility] 10/27/2018 10:1 7 PM CDT 10/27/2018 10:28 PM CDT Narrative [facility] - 10/27/2018 11:10 PM CDT N Resulting Agency Comment ER us Ector Bermudez MD LAB BLOOD BANK TEST O RDERABLES Final Result [address] [phone] * Ammonia (10/27/2018 10:17 PM CDT) AMMONIA 73 27 - 102 ug/dL [facility] 10/27/2018 10:1 7 PM CDT 10/27/2018 10:27 PM CDT Narrative Resulting Agency Comment ER Ector Bermudez MD LAB BLOOD ORDERABLES Final Result Performing Organization Address [facility]/ZIP Co de Phone Number [address] [phone] * Ethanol (10/27/2018 10:17 PM CDT) Ethyl Alcohol <10 mg/dL [facility] Comment: % = mg/dL x .001 10/27/2018 10:1 7 PM CDT 10/27/2018 10:28 PM CDT Narrative Resulting Agency Comment ER Ector Bermudez MD LAB BLOOD ORDERABLES Final Result Performing Organization Address [facility]/ZIP Co de Phone Number [address] [phone] * (ABNORMAL) Lipase (10/27/2018 8:57 PM CDT) Lipase 76(H) 13 - 60 U/L [facility] 10/27/2018 8:57 PM CDT 10/27/2018 9:01 PM CDT Narrative Resulting Agency Comment ER Sukhwinder LYON LAB BLOOD ORDERABLES Final Result Performing Organization Address [facility]/ZIP Co de Phone Number [address] [phone] * (ABNORMAL) Comprehensive metabolic panel (10/27/2018 8:57 PM CDT) Sodium 137 135 - 145 mmol/L [facility] Potassium 3.8 3.3 - 5.1 mmol/L [facility] Chloride 99 96 - 108 mmol/L [facility] Carbon Dioxide 28 22 - 32 mmol/L [facility] Anion Gap 10 7 - 16 [facility] Glucose 296(H) 70 - 100 mg/dL [facility] BUN 11 8 - 25 mg/dL [facility] Creatinine 0.7 0.5 - 1.3 mg/dL [facility] Comment: NOTE: Estimated GFR (Cockroft-Gault) will NOT be calculated unless patient Height and Weight were entered. Also, Kidney Disease Stage (GFR) and Estimated GFR (Cockroft-Gault) will NOT be calculated if Creatinine result is <0.2. Kidney Disease Stage >90 mL/MIN [facility] Comment: NOTE; ??The GFR is an estimated [...] on dialysis Est GFR (Cockcroft-G) 164 ml/MIN [facility] Comment: Estimated GFR(Cockroft-Gault)is used to calculate patient medication dosage Calcium 10.0 8.6 - 10.3 mg/dL [facility] Total Protein 7.1 6.4 - 8.3 g/dL [facility] Albumin 3.8 3.5 - 5.0 g/dL [facility] Globulin 3.3 2.3 - 3.5 gm/dL [facility] Albumin/Globulin Ratio 1.2 1.1 - 1.8 [facility] Total Bilirubin 0.9 0.0 - 1.2 mg/dL [facility] AST 57(H) 0 - 40 U/L [facility] ALT 59(H) 0 - 41 U/L [facility] Alkaline Phosphatase 72 40 - 129 U/L [facility] 10/27/2018 8:57 PM CDT 10/27/2018 9:01 PM CDT Narrative Resulting Agency Comment ER Sukhwinder LYON LAB BLOOD ORDERABLES Final Result [address] [phone] * aPTT (10/27/2018 8:57 PM CDT) APTT 29 26 - 33 SECONDS [facility] 10/27/2018 8:57 PM CDT 10/27/2018 9:01 PM CDT Narrative Resulting Agency Comment ER Sukhwinder LYON LAB BLOOD ORDERABLES Final Result [address] [phone] * (ABNORMAL) Protime-INR (10/27/2018 8:57 PM CDT) PT 14.8(H) 11.8 - 14.5 SECONDS [facility] INR 1.15 [facility] Comment: Recommended Therapeutic range for Oral Anticoagulant [...] Sukhwinder LYON LAB BLOOD ORDERABLES Final Result [facility] [address] [place] [address], [facility] [[email or web address]] [phone] * (ABNORMAL) CBC with auto differential (10/27/2018 8:57 PM CDT) WBC 3.7(L) 3.8 - 9.9 X10 3/ul [facility] RBC 5.12 4.30 - 5.80 x10 6/ul [facility] Hemoglobin 12.9(L) 13.0 - 17.5 g/dL [facility] Hct 41.1 38.9 - 50.3 % [facility] MCV 80.3(L) 81.3 - 96.4 fl [facility] MCH 25.2(L) 27.1 - 33.3 pg [facility] MCHC 31.4(L) 32.3 - 35.7 g/dl [facility] RDW 14.9 11.1 - 14.9 % [facility] Plt Count 75(L) 150 - 400 x10 3/ul [facility] MPV 11.0 9.1 - 12.3 fl [facility] Neut % 71.7 % [facility] Immature Gran % 0.3 % [facility] Lymph % 13.6 % [facility] Isabella % 11.7 % [facility] Eos % 2.2 % [facility] AUTO BASO % 0.5 % [facility] NEUTROPHIL ABS # 2.7 1.7 - 6.5 x10 3/ul [facility] Immature Gran # 0.0 0.0 - 0.1 x10 3/ul [facility] Absolute Lymphs (auto) 0.5(L) 0.8 - 3.3 x10 3/ul [facility] Absolute Monos (auto) 0.4 0.2 - 0.8 x10 3/ul [facility] Absolute Eos (auto) 0.1 0.0 - 0.5 x10 3/ul [facility] BASOPHIL ABS # 0.0 0.0 - 0.1 x10 3/ul [facility] Nucleat RBC Rel Count 0.0 #/100WBC [facility] NRBC abs 0.00 0.00 - 0.01 x10 3/ul [facility] Absolute Neutrophils 2,700 200 - 8,000 /ul [facility] 10/27/2018 8:57 PM CDT 10/27/2018 9:01 PM CDT Narrative Resulting Agency Comment ER Sukhwinder LYON LAB BLOOD ORDERABLES Final Result [facility] [address] [phone] * CT Abdomen Pelvis WO Contrast (10/27/2018 12:00 AM CDT) Anatomical Region Laterality Modality Body N/A Computed Tomogra phy 10/28/2018 12:1 3 AM CDT Narrative 10/28/2018 12:23 AM CDT Patient Name: CAMILO CURRY ?Ordering Dr: Ector Bermudez MD ?? D.O.B: 1970 ? Exam Date: 10/27/18 ?? 0000 ?? Age: 48 ?Sex: Male ? MR#: [id number] ?? Loc: ? RADIOLOGY REPORT ?? Order #[id number] ?? CT Scan ? CT Abd/Pelvis WO [...] 12:23 AM ?? T: ? Report ID: [id number] ?? Reading Location: ??[id number] ? REPORT ELECTRONICALLY SIGNED IN OTHER VENDOR SYSTEM ?? Resulting Agency Comment E Procedure Note Arian Pressley MD - 10/28/2018 Patient Name: Varsha CURRY Dr: Ector Bermudez MDOMendezB: 1970 Exam Date: 10/27/18 0000 Age: 48 Sex: Male MR#: [id number] Loc: RADIOLOGY REPORT Order #[id number] CT Scan CT Abd/Pelvis WO IV Contrast [...] Arian Pressley M.D. AR T: Report ID: [id number] Reading Location: [place] [address] REPORT ELECTRONICALLY SIGNED IN OTHER VENDOR SYSTEM Ector Bermudez MD IMG CT PROCEDURES Fin al Result documented in this encounter Visit Diagnoses Not on filedocumented in this encounter Care Teams Joiners Supervisor Relationship Specialty Start Date End Date Nikolay Lancaster MD [address] [place] [address] [phone] PCP - General 10/27/18 05/08/20 Kris Soto MD [address] [place] [address] 10/27/18 05/08/20 documented as of this encounter
--- OUTSIDE RECORDS SUMMARY | 2024-05-08 07:37 | XMS_ITS | Encounter Summary ---
Author Organization [facility] Address [address] [place] [address] Care Team Providers Care Water Treatment Technician Name Role Phone Braydon Pavon Primary Care Provider [phone] Nikolay Lancaster MD Unavailable [phone] Reason for Visit * Reason Onset Date Comments patient call other 07/03/2020 Encounter Details Date Type Department Care Team (Late st Contact Info) Description 07/03/2020 [facility]phone [facility] Special[facility] [address] [facility] [address] [place] [address] Guicho Lindo, [place] [address] [facility] [address] [address] patient call other Social History Tobacco Use Types Packs/Day Years Used Date Smoking Tobacco: Former Smokeless Tobacco: Never Alcohol Use Standard Drinks/Week Comments No 0 (1 standard drink = 0.6 oz pur e alcohol) Sex and Gender Information Value Date Recorded Sex Assigned at Not on file 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 Gender Identity Male 10/29/2020 12:37 PM CDT Sexual Orientation Straight 10/29/2020 12 :37 PM CDT documented as of this encounter Miscellaneous Notes * Telephone Encounter - Wanda Bro - 07/03/2020 3:17 PM CST Patient referred to ENDO for diabetes Called patient lmom mailed new patient referral letter Records scanned FINISHER documented in this encounter Plan of Treatment Not on file documented as of this encounter Visit Diagnoses Not on filedocumented in this encounter Care Teams Water Treatment Technician Relationship Specialty Start Date End Date Braydon Pavon PA [address] [place] [address] PCP - General Family Practice 05/09/20 05/19/21 Nikolay Lancaster MD [address] [place] [address] 05/09/20 05/19/21 documented as of this encounter
--- OUTSIDE RECORDS SUMMARY | 2024-05-08 07:37 | XMS_ITS | Encounter Summary ---
Author Organization [facility] Healthcare Address [address] [place] [address] Care Team Providers Care Box Printing Machine Operator Name Role Phone Kris Soto MD Primary Care Provide r Encounter Details Date Type Department Care Team (Latest Contact Info) Description 02/02/2018 10:16 AM CDT - 02/03/2018 2:00 AM CDT Hospital Encounter [facility] [address] [place] [address] Sandy Kraus MD [address] [place] [address] Jamal Patino MD [address] [place] [address] Discharge Disposition: Left Against Medical Advice Social History Tobacco Use Types Packs/Day Years Used Date Smoking Tobacco: Former Smokeless Tobacco: Never Alcohol Use Standard Drinks/Week Comments No 0 (1 standard drink = 0.6 oz pur e alcohol) Sex and Gender Information Value Date Recorded Sex Assigned at Not on file 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 Gender Identity Male 10/29/2020 12:37 PM [...] Care Physician at Discharge: Kris Soto MD [phone] Admission Date: 02/02/2018 Discharge Date: 02/03/2018 Admission Location: [facility] Primary Discharge Diagnosis: Acute gastroenteritis Secondary [...] Pt was transferred from [facility] ED to [facility] for higher level of care and [...] Time Provider Department Center 02/15/2018 9:00 AM [id number] [place] [address] 02/15/2018 10:30 AM Kathryn Ellis MD [facility] [address] [facility] Contact Information for Follow-ups Kris Soto MD Specialty: Family Medicine, Internal Medicine, Pediatrics Relationship: PCP - General [address] [address] Next Steps: Follow up documented in this [...] and assistance at discharge. Insurance verified as: [facility], [place] Medicaid Admission Source: Home 02/02/18 1000 Discharge [...] no other findings Pt was transferred to [facility] for higher level of care and [...] SCD Code Status: Full Code Contact: Lupe [phone] Dispo: home Juana Vigil MD Cosigned by [...] Endocrine Diabetes Inpatient Consult 02/02/2018 Camilo Curry [phone] Kris Soto MD CONSULTING PROVIDER: Nirmal Vivar [...] and severe diarrhea. He visited local ED ([facility]) and was given pain medications for concern for gastroenteritis. He was discharged home but continued to experience watery diarrhea with occasional black chunks and additional vomiting with occasional streaks of red blood. He presented to [facility] for persistent symptoms and was given IVF and monitored; during this time, his diarrhea persisted and reports>20 episodes of diarrhea since onset. He was transferred to [facility] for SBP rule out and higher level of care. He endorses dizziness and cold sweats. He denies fever, headache, chest pain. Regarding his DM2: He was diagnosed in 2010 and was started on insulin about 3 years ago. He previously followed with Dr. Power in [place], [place]. But is in the process of getting a new scooping machine tender due to insurance changes. He has never [...] resume home regimen and follow-up with home scooping machine tender High risk medication use Assessment & Plan [...] Dr Lizama, Dr Brock and Manuel [employer] notified. Pt's IV was D/C and pt vital signs are stable. Pt left AMA at 0200 on 08/04/2017 * Elver Davis RN - 02/02/2018 10:31 AM CDT [place]. [place]mitted [place] [id number] from OSH. Pt. A&Ox4. Pt. C/o mid [...] patient has an appointment with an OS scooping machine tender today (02/03) we provided him with a copy of the endocrinology consult note from 02/02. [employer] explained the risks of leaving the hospital at this time including hypoglycemia, hyperglycemia and the complications thereof including DKA, altered consciousness and . He expressed understanding of these risks and signed the AMApaperwork. Nursing corrugator supervisor aware of situation. * Plan of [...] resume home regimen and follow-up with home scooping machine tender * Assessment & Plan Note - Nirmal [...] Endocrine Diabetes Inpatient Consult 02/02/2018 Camilo Curry [id number] Kris Soto MD CONSULTING PROVIDER: Nirmal Vivar [...] and severe diarrhea. He visited local ED ([facility]) and was given pain medications for concern for gastroenteritis. He was discharged home but continued to experience watery diarrhea with occasional black chunks and additional vomiting with occasional streaks of red blood. He presented to [facility] for persistent symptoms and was given IVF and monitored; during this time, his diarrhea persisted and reports>20 episodes of diarrhea since onset. He was transferred to [facility] for SBP rule out and higher level of care. He endorses dizziness and cold sweats. He denies fever, headache, chest pain. Regarding his DM2: He was diagnosed in 2010 and was started on insulin about 3 years ago. He previously followed with Dr. Power in [place], [place]. But is in the process of getting a new scooping machine tender due to insurance changes. He has never [...] and severe diarrhea. He visited local ED ([facility]) and was given pain medications for concern for gastroenteritis. He was discharged home but continued to experience watery diarrhea with occasional black chunks and additional vomiting with occasional streaks of red blood. He presented to [facility] for persistent symptoms and was given IVF and monitored; during this time, his diarrhea persisted and reports >20 episodes of diarrhea since onset. He was transferred to [facility] for SBP rule out and higher level [...] Glucose, POC 189 70 - 199 mg/dL [facility] Blood specimen (specimen) 02/02/2018 9:19 PM CDT 02/02/2018 9:19 PM CDT Narrative [facility] - 02/02/2018 9:21 PM CDT us Jamal Patino MD LAB POCT ORDERABLES - DEV ICE Final Result Performing Organization Address City/[facility]/ZIP Co de Phone Number [facility] Department [place] [address] * Lactate (02/02/2018 5:30 PM CDT) Lactate 1.7 0.7 - 2.0 mmol/L [facility] Blood specimen (specimen) 02/02/2018 5:30 PM CDT 02/02/2018 5:49 PM CDT Narrative [facility] - 02/02/2018 6:48 PM CDT us Jamal Patino MD LAB BLOOD ORDERABLES Anastasiya l Result Performing Organization Address City/[facility]/ZIP Co de Phone Number [facility] Department [place] [address] * POCT glucose (02/02/2018 4:33 PM CDT) Glucose, POC 178 70 - 199 mg/dL [facility] Blood specimen (specimen) 02/02/2018 4:33 PM CDT 02/02/2018 4:33 PM CDT Narrative [facility] - 02/02/2018 4:48 PM CDT us Jamal Patino MD LAB POCT ORDERABLES - DEV ICE Final Result [facility] [place] [address] * US RUQ (02/02/2018 3:43 PM CDT) [...] WBC, ur 0-5 0 - 5 /HPF [facility] RBC, ur 0-5 0 - 5 /HPF [facility] Mucous, ur Present(A) [facility] Urine 02/02/2018 12:5 9 PM CDT 02/02/2018 1:36 PM CDT Narrative [facility] - 02/02/2018 1:49 PM CDT us Jamal Patino MD LAB URINE ORDERABLES Anastasiya l Result [facility] [place] [address] * (ABNORMAL) Urinalysis reflex to microscopic and [...] [facility] Urobilinogen, ur <2.0 <2.0 mg/dL [facility] Nitrite, ur Negative Negative [facility] Leukocyte esterase, ur Negative Negative [facility] Urine 02/02/2018 12:5 9 PM CDT 02/02/2018 1:36 PM CDT Narrative [facility] - 02/02/2018 1:47 PM CDT ?? Urine pH is affected by diet, medications, systemic acid-base disturbances, and renal tubular function. ??pH may affect urinary stone formation. ??For example, urine pH below 6.0 may help reduce the tendency for calcium phosphate stones and pH greater than 6.0 may reduce the tendency for uric acid stone formation. Source: [facility]. Last revised 05-14-2017 us Jamal Patino MD LAB MICROBIOLOGY - GENERA L ORDERABLES Final Result [facility] Department [place] [address] * (ABNORMAL) Differential, auto (02/02/2018 12:23 PM CDT) Neutrophil abs 5.2 1.7 - 6.5 K/cumm [facility] Imm gran abs 0.0 0.0 - 0.1 K/cumm [facility] Lymphocyte abs 0.5(L) 0.8 - 3.3 K/cumm [facility] Monocyte abs 0.4 0.2 - 0.8 K/cumm [facility] Eosinophil abs 0.0 0.0 - 0.5 K/cumm [facility] Basophil abs 0.0 0.0 - 0.1 K/cumm [facility] Neutrophil pct 84.5 % [facility] Comment: Interpretive Data Percent cell count reference ranges are not reported, since discordance with absolute values may lead to misinterpretation of CBC data. Current Interpretive Data was last revised on 2017. Imm gran pct 0.3 % [facility] Comment: Interpretive Data Percent cell count reference ranges are not reported, since discordance with absolute values may lead to misinterpretation of CBC data. Current Interpretive Data was last revised on 2017. Lymphocyte pct 7.6 % [facility] Comment: Interpretive Data Percent cell count reference ranges are not reported, since discordance with absolute values may lead to misinterpretation of CBC data. Current Interpretive Data was last revised on 2017. Monocyte pct 6.8 % [facility] Comment: Interpretive Data Percent cell count reference ranges are not reported, since discordance with absolute values may lead to misinterpretation of CBC data. Current Interpretive Data was last revised on 2017. Eosinophil pct 0.5 % [facility] Comment: Interpretive Data Percent cell count reference ranges are not reported, since discordance with absolute values may lead to misinterpretation of CBC data. Current Interpretive Data was last revised on 2017. Basophil pct 0.3 % [facility] Comment: Interpretive Data Percent cell count reference ranges are not reported, since discordance with absolute values may lead to misinterpretation of CBC data. Current Interpretive Data was last revised on 2017. Blood specimen (specimen) 02/02/2018 12:23 PM CDT 02/02/2018 12:40 PM CDT Narrative [facility] - 02/02/2018 12:52 PM CDT Jamal Patino MD LAB BLOOD ORDERABLES Anastasiya enciso Result [facility] Department [place] [address] * (ABNORMAL) Hemoglobin A1c (02/02/2018 12:23 PM CDT) Hgb A1C 8.4(H) 4.0 - 5.6 % [facility] Estimated Average Glucose 194 mg/dL [facility] Comment: The ADA recommends reporting an estimated Average Glucose (eAG) with all Hemoglobin A1c results using the equation derived from a study of 507 normal and diabetic adults. ??Minority populations were underrepresented and children were not included. ?? (Diabetes Care 31:2960-9272, 2008). ??The eAG is not equivalent to a fasting glucose. Blood specimen (specimen) 02/02/2018 12:23 PM CDT 02/02/2018 12:41 PM CDT Narrative [facility] - 02/02/2018 1:05 PM CDT Jamal Patino MD LAB BLOOD ORDERABLES Anastasiya l Result Performing Organization Address [facility]/RUST de Phone Number [facility] [place] [address] * (ABNORMAL) aPTT (02/02/2018 12:23 PM CDT) aPTT 24.2(L) 25.0 - 37.0 sec [facility] Comment: Interpretive Data Therapeutic heparin range:60.0 - 94.0 sec based on correlation with therapeutic heparin activity range of 0.3 -0.7 Units/mL. Current interpretive data was last revised on 2011. Blood specimen (specimen) 02/02/2018 12:23 PM CDT 02/02/2018 12:36 PM CDT Narrative [facility] - 02/02/2018 1:11 PM CDT Jamal Patino MD LAB BLOOD ORDERABLES Anastasiya l Result Performing Organization Address [facility] de Phone Number [facility] [place] [address] * (ABNORMAL) Protime-INR (02/02/2018 12:23 PM CDT) PT 14.3(H) 8.5 - 13.0 sec [facility] INR 1.24(H) 0.80 - 1.21 [facility] Comment: Interpretive Data Inpatient therapeutic ranges* Atrial fibrillation ?2.0-3.0 INR Venous thrombo-embolism ?2.0-3.0 INR Bioprosthetic heart valve ?* Mechanical heart valve, bileaflet or tilting disk,aortic position ? 2.0-3.0 INR All other,or bileaflet or tilting disk, in mitral position ? 2.5-3.5 INR *See the pharmacy resource directory (PHRED) for an updated copy of the Tool Book at [email or web address] Current Interpretive Data was last revised 2011. Blood specimen (specimen) 02/02/2018 12:23 PM CDT 02/02/2018 12:36 PM CDT Narrative [facility] - 02/02/2018 1:11 PM CDT us Jamal Patino MD LAB BLOOD ORDERABLES Anastasiya l Result Performing Organization Address [facility]/ZIP Co de Phone Number [facility] Department [place] [address] * Type and screen (02/02/2018 12:23 PM CDT) ABO Rh A Positive [facility] Steve, indirect Negative [facility] Blood specimen (specimen) 02/02/2018 12:23 PM CDT 02/02/2018 12:43 PM CDT Narrative [facility] - 02/02/2018 1:42 PM CDT Has the patient had Daratumumab (Darzalex) in the past 6 months?->Unknown us Jamal aPtino MD LAB BLOOD BANK TEST ORDER SELINA Final Result Performing Organization Address City/[facility]/ZIP Co de Phone Number [facility] Department [place] [address] * (ABNORMAL) CBC with auto differential (02/02/2018 12:23 PM CDT) WBC 6.2 3.8 - 9.9 K/cumm [facility] Hgb 12.9(L) 13.0 - 17.5 g/dL [facility] Hct 39.1 38.9 - 50.3 % [facility] Plt 105(L) 150 - 400 K/cumm [facility] MPV 11.7 9.1 - 12.3 fL [facility] RBC 4.77 4.30 - 5.80 M/cumm [facility] MCV 82.0 81.3 - 96.4 fL [facility] MCH 27.0(L) 27.1 - 33.3 pg [facility] MCHC 33.0 32.3 - 35.7 g/dL [facility] RDW CV 15.5(H) 11.1 - 14.9 % [facility] RDW SD 46.0 35.7 - 48.1 fL [facility] NRBC abs 0.00 0.00 - 0.01 K/cumm [facility] Blood specimen (specimen) 02/02/2018 12:23 PM CDT 02/02/2018 12:40 PM CDT Narrative [facility] - 02/02/2018 12:52 PM CDT us Jamal Patino MD LAB BLOOD ORDERABLES Anastasiya enciso Result [facility] [place] [address] * Phosphorus (02/02/2018 12:23 PM CDT) Phosphorus, pl 2.9 2.3 - 4.5 mg/dL [facility] Blood specimen (specimen) 02/02/2018 12:23 PM CDT 02/02/2018 12:38 PM CDT Narrative [facility] - 02/02/2018 1:04 PM CDT us Jamal Patino MD LAB BLOOD ORDERABLES Anastasiya l Result Performing Organization Address [facility] Co de Phone Number [facility] Department [place] [address] * Magnesium (02/02/2018 12:23 PM CDT) [facility] Magnesium 1.4 1.4 - 2.5 mg/dL [facility] Blood specimen (specimen) 02/02/2018 12:23 PM CDT 02/02/2018 12:38 PM CDT Narrative [facility] - 02/02/2018 1:04 PM CDT Jamal Patino MD LAB BLOOD ORDERABLES Anastasiya l Result Performing Organization Address [facility] Co de Phone Number [facility] Department [place] [address] * (ABNORMAL) Comprehensive metabolic panel (02/02/2018 12:23 PM CDT) [facility] Sodium 137 135 - 145 mmol/L [facility] Potassium, pl 5.0(H) 3.3 - 4.9 mmol/L [facility] Comment:Hemolyzed; (+++); po tassium value may be falsely elevated by as much as 0.6 - 1.0 mmol/L. Suggest redraw and reanalysis. Chloride 106 97 - 110 mmol/L [facility] CO2 23 22 - 32 mmol/L [facility] Anion gap 8 2 - 15 mmol/L [facility] BUN 15 8 - 25 mg/dL [facility] Creatinine 0.73(L) 0.80 - 1.30 mg/dL [facility] Glucose 255(H) 70 - 199 mg/dL [facility] Comment: Interpretive Data Fasting glucose >/= 126 [...] 2017. Calcium 8.7 8.5 - 10.3 mg/dL [facility] Bilirubin, total 1.3(H) 0.1 - 1.2 mg/dL [facility] Protein, pl 7.1 6.5 - 8.5 g/dL [facility] Albumin 3.8 3.5 - 5.0 g/dL [facility] Alk phos 71 40 - 130 Units/L [facility] ALT 83(H) 7 - 55 Units/L [facility] AST 105(H) 10 - 50 Units/L [facility] Comment:Hemolyzed; result ma y be falsely elevated. Blood specimen (specimen) 02/02/2018 12:23 PM CDT 02/02/2018 12:38 PM CDT Narrative [facility] - 02/02/2018 1:04 PM CDT us Jamal Patino MD LAB BLOOD ORDERABLES Anastasiya l Result Performing Organization Address City/[facility]/ZIP Co de Phone Number [facility] [place] [address] * (ABNORMAL) POCT glucose (02/02/2018 12:03 PM CDT) [facility] Signature Glucose, POC 231(H) 70 - 199 mg/dL [facility] Glucose comment 1 RN Notified [facility] Glucose comment 2 Doctor Notified [facility] Blood specimen (specimen) 02/02/2018 12:03 PM CDT 02/02/2018 12:03 PM CDT Narrative [facility] - 02/02/2018 12:08 PM CDT Jamal Patino MD LAB POCT ORDERABLES - DEV ICE Final Result [facility] Department [place] [address] documented in this encounter Visit Diagnoses Diagnosis [...] juice (4 fluid ounces) NOT ORANGE JUICE EDUCATION CONSULTANT STATES GLUTOSE-15 CONTAINS GLUCOSE 40% W/W (50% [...] tablet/capsule., Indications: GERD 2204 (Given - Provider: aGllo Marrero, BETHANY) rifAXIMin (XIFAXAN) tablet 550 mg [...] juice (4 fluid ounces) NOT ORANGE JUICE EDUCATION CONSULTANT STATES GLUTOSE-15 CONTAINS GLUCOSE 40% W/W (50% [...] 02/02/2018 documented in this encounter Care Teams Box Printing Machine Operator Relationship Specialty Start Date End Date Kris Soto MD [address] [place] [address] PCP - General 12/08/16 10/26/18 documented as of this encounter
--- OUTSIDE RECORDS SUMMARY | 2024-05-08 07:37 | XMS_ITS | Encounter Summary ---
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 (All Locations) Referral ID Status Reason Start Date Expiration Date V isits Requested Visits Authorized [id number] Closed Specialty Services Required 06/14/2020 07/14/2021 25 25 Encounter Details Date Type Department Care Team (Late st Contact Info) Description 08/30/2020 9:40 AM CDT Office Visit 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 [id number] (Virtussin DAC) 2-20-6 mg/mL syrup every 6 [...] agreement as previously mentioned. Elian Ramsey M.D. applications intern Division of Gastroenterology Transplant Hepatology Section documented [...] IMG US PROCE DURES Final Result * [id number]-[id number], Tumor Marker (08/30/2020 10:27 AM CDT) alpha Fetoprotein 3.5 0.0 - 8.3 ng/mL [facility] Comment: Interpretive Data On July 29, 2016 new Chemistry Instrumentation was implemented. ??If you have any questions, please contact the Laboratory at [phone]. Testing performed by: [facility], [address] [place] [address]., [id number] Blood specimen (specimen) 08/30/2020 10:27 AM CDT 08/30/2020 12:11 PM CDT Elian Draper MD LAB BLOOD OR DERABLES Final Result [facility] [id number] [facility]. Department of Laboratories [place], [place] [id number] * (ABNORMAL) Protime-INR (08/30/2020 10:27 AM CDT) [...] MD LAB BLOOD OR DERABLES Final Result [facility] [address] [facility] Department [place] [address] * (ABNORMAL) Comprehensive metabolic panel (08/30/2020 10:27 AM CDT) Sodium 138 135 - 145 mmol/L [facility] Comment:MOB2 Potassium, pl 4.1 3.3 - 4.9 mmol/L [facility] Comment:MOB2 Chloride 99 97 - 110 mmol/L [facility] Comment:MOB2 CO2 26 22 - 32 mmol/L [facility] Comment:MOB2 Anion gap 13 2 - 15 mmol/L [facility] Comment:MOB2 BUN 15 8 - 25 mg/dL [facility] Comment:MOB2 Creatinine 0.66(L) 0.80 - 1.30 mg/dL [facility] Comment:MOB2 Glucose 377(H) 70 - 199 mg/dL [facility] Comment: Result called by [email or web address] at 2020-08-30 11:39:26. Result Read Back by [...] MD LAB BLOOD OR DERABLES Final Result [facility] [address] [facility]. [place] [address] * (ABNORMAL) CBC without differential (08/30/2020 10:27 AM CDT) Pathologist [facility] WBC 3.3(L) 3.8 - 9.9 K/cumm [facility] Hgb 8.4(L) 13.0 - 17.5 g/dL [facility] Hct 31.1(L) 38.9 - 50.3 % [facility] Plt 80(L) 150 - 400 K/cumm [facility] MPV 10.4 9.1 - 12.3 fL [facility] RBC 4.42 4.30 - 5.80 M/cumm [facility] MCV 70(L) 81 - 96 fL [facility] MCH 19.0(L) 27.1 - 33.3 pg [facility] MCHC 27.0(L) 32.3 - 35.7 g/dL [facility] RDW CV 18.0(H) 11.1 - 14.9 % [facility] RDW SD 44.9 35.7 - 48.1 fL [facility] Blood specimen (specimen) 08/30/2020 10:27 AM CDT 08/30/2020 10:28 AM CDT Elian Draper MD LAB BLOOD OR DERABLES Final Result [facility] [address] [facility]. [place] [address] documented in this encounter Visit Diagnoses Diagnosis [...] 21 documented in this encounter Care Teams Vascular Manager Relationship Specialty Start Date End Date Braydon Pavon PA [address] [place] [address] PCP - General Family Practice 05/09/20 05/19/21 Nikolay Lancaster MD [address] [place] [id number] 05/09/20 05/19/21 documented as of this encounter
--- OUTSIDE RECORDS SUMMARY | 2024-05-08 07:37 | XMS_ITS | Encounter Summary ---
Author Organization [facility] Address [address] [place] [address] Phone Care Team Providers Care Wheel Press Clerk Name Role Phone Kris Soto MD Primary Care Provide r Encounter Details Date Type Department Care Team (Late st Contact Info) Description 05/07/2018 Orders Only [facility] Gastroenterology [address] [facility] 8th [place] [address] [place] [address] Faith Hooker Social History Tobacco Use Types Packs/Day Years Used Date Smoking Tobacco: Former Smokeless Tobacco: Never Alcohol Use Standard Drinks/Week Comments No 0 (1 standard drink = 0.6 oz pur e alcohol) Sex and Gender Information Value Date Recorded Sex Assigned at Not on file 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
--- OUTSIDE RECORDS SUMMARY | 2024-05-08 07:38 | XMS_ITS | Encounter Summary ---
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
--- OUTSIDE RECORDS SUMMARY | 2024-05-08 07:38 | XMS_ITS | Encounter Summary ---
Author Organization [facility] Address [address] [place] [address] Phone Care Team Providers Care Aircraft Skin Burnisher Name Role Phone Kris Soto MD Primary Care Provide r Encounter Details Date Type Department Care Team (Late st Contact Info) Description 10/11/2017 Documentation [facility] Gastroenterology [facility] 8th [place] [address] [place] [address] James Carrillo, RN Social History Tobacco Use Types Packs/Day Years Used Date Smoking Tobacco: Former Smokeless Tobacco: Never Alcohol Use Standard Drinks/Week Comments No 0 (1 standard drink = 0.6 oz pur e alcohol) Sex and Gender Information Value Date Recorded Sex Assigned at Not on file 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 Camilo is under contract to a pain specialist in [place], who is out of town for 2 [...] trying to obtain. james Haney R.N., B.S.N. [facility] Hepatology Program [address] [place]. [address] Kathryn Ellis and Dr. Elian Espinoza #[phone] [email or web address] The materials in this e-mail are private [...] immediately notify the sender via telephone at [phone] to arrange for return of the forwarded documents to us. From: Jose Miguel Sent: Tuesday, October 10, 2017 11:02 PM To: Kathryn Ellis [email or web address]> Cc: James Carrillo [email or web address]> Subject: patient KENNEDY Peralta, A patient of your's, Camilo Curry 70, called stating he had RUQ abdominal pain that was 10/10. He was previously seen at an OSH and his pain was thought to be due to gallstones. It's unclear whatworkup was done there but he was discharged to follow up at [place]. His pain was relatively controlled until tonight. When he called me he was on his way to [place]. Let me know if you'd like anything else done. Thank you, Jose Miguel M.D. Fellow, Division of Gastroenterology [facility] in [place] documented in this encounter Plan of Treatment Not on file documented as of this encounter Visit Diagnoses Not on filedocumented in this encounter Care Teams Aircraft Skin Burnisher Relationship Specialty Start Date End Date Kris Soto MD [address] [id number] PCP - General 12/08/16 10/26/18 documented as of this encounter
--- OUTSIDE RECORDS SUMMARY | 2024-05-08 07:38 | XMS_ITS | Encounter Summary ---
Author Organization [facility] Healthcare Address [address] [place] [address] Care Team Providers Care Application Development Consultant Name Role Phone Kris Soto MD Primary Care Provide r Encounter Details Date Type Department Care Team (Late st Contact Info) Description 08/27/2017 11:21 PM CDT - 08/28/2017 4:10 PM CDT Hospital Encounter [facility] [address] [place] [address] Harpal Gonzalez MD [address] [place] [address] Raimundo Tran MD [address] [place] [address] Ethel Sawyer MD [address] [place] [address] Discharge Disposition: Discharge to home or self care Social History Tobacco Use Types Packs/Day Years Used Date Smoking Tobacco: Former Sex and Gender Information Value Date Recorded Sex Assigned at Not on file 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 ACC# ??Date Time ??Exam [id number] Aug 28, 2017 10:07:00 [id number] Abd Orgn Duplex [id number] Aug 28, 2017 10:07:00 89089 Sono Abd Lmtd EXAMINATION: ?? 1. LIMITED [...] NAVARRETE M.D. on Aug 28 2017 ??2:29P [id number] GREENE M.D. FINAL REPORT The radiology attending physician has personally reviewed this study, and has reviewed and/or edited this written report and agrees with it. Attending: ??ELFEGO, ??HARPAL Requesting: ??MARC, ??RAIMUNDO Requesting Fax: ?? Attending Fax: ?? Attending ID: ??[id number] Requesting ID: ??[id number] Report To 1 ID: ??[id number] ? Report To 1 Name: ??, ?? Report To 1 FAX: ?? NextGen Order #: ?? Procedure Note Miscellaneous, Not In File - 08/28/2017 DARRELL NAVARRETE M.D. NILAY CHISHOLM M.D. FINAL REPORT The radiology attending physician has personally reviewed this study, and has reviewed and/or edited this written report and agrees with it. ACC# Date Time Exam [id number] Aug 28, 2017 10:07:00 85431 Abd Orgn Duplex [id number] Aug 28, 2017 10:07:00 72923 Sono Abd Lmtd EXAMINATION: 1. LIMITED ABDOMINAL [...] NAVARRETE M.D. on Aug 28 2017 2:29P [id number] GREENE M.D. FINAL REPORT The radiology attending physician has personally reviewed this study, and has reviewed and/or edited this written report and agrees with it. Attending: HARPAL GONZALEZ Requesting: RAIMUNDO TRAN Requesting Fax: Attending Fax: Attending ID: [id number] Requesting ID: [id number] Report To 1 ID: [id number] Report To 1 Name: , Report To [...] agrees with it. ACC# ??Date Time ??Exam [id number] Aug 28, 2017 10:07:00 21267 Abd Orgn Duplex [id number] Aug 28, 2017 10:07:00 26060 Sono Abd Lmtd EXAMINATION: ?? 1. LIMITED [...] Fax: ?? Attending Fax: ?? Attending ID: ??[id number] Requesting ID: ??[id number] Report To 1 ID: ??[id number] ? Report To 1 Name: ??, ?? Report To 1 FAX: ?? NextGen Order #: ?? Procedure Note Miscellaneous, Not In File - 08/28/2017 DARRELL NAVARRETE M.D. NILAY CHISHOLM M.D. FINAL REPORT The radiology attending physician has personally reviewed this study, and has reviewed and/or edited this written report and agrees with it. ACC# Date Time Exam [id number] Aug 28, 2017 10:07:00 83357 Abd Orgn Duplex [id number] Aug 28, 2017 10:07:00 86916 Sono Abd Lmtd EXAMINATION: 1. LIMITED ABDOMINAL [...] SAWYER Requesting Fax: Attending Fax: Attending ID: [id number] Requesting ID: [id number] Report To 1 ID: [id number] Report To 1 Name: , Report To 1 FAX: NextGen Order #: Ethel Sawyer MD CV VASCULAR PROCEDURES Anastasiya l Result * (ABNORMAL) Glucose POC (08/28/2017 2:57 PM CDT) Glucose, POC 249(H) 70 - 199 mg/dL [facility] Blood specimen (specimen) 08/28/2017 2:57 PM CDT 08/28/2017 2:57 PM CDT Narrative [facility] - 08/28/2017 2:58 PM CDT us Ethel Sawyer MD POINT OF CARE TEST ORDERABL ES Final Result [facility] Department [place] [address] * XR Ribs And Pa Chest 3V [...] agrees with it. ACC# ??Date Time ??Exam [id number] Aug 28, 2017 09:22:00 [id number] Ribs Uni,PA Chst(red srv) R EXAMINATION: ??Right [...] M.D. F on Aug 28 2017 10:16A [id number] RDZ M.D. F ROBERT ORTIZ M.D. FINAL REPORT The radiology attending physician has personally reviewed this study, and has reviewed and/or edited this written report and agrees with it. Attending: ??ELFEGO, ??HARPAL Requesting: ??MARC, ??RAIMUNDO Requesting Fax: ?? Attending Fax: ?? Attending ID: ??[id number] Requesting ID: ??[id number] Report To 1 ID: ??[id number] ? Report To 1 Name: ??, ?? Report To 1 FAX: ?? NextGen Order #: ?? Procedure Note Miscellaneous, Not In File - 08/28/2017 COLEEN RDZ M.D. F ROBERT ORTIZ M.D. FINAL REPORT The radiology attending physician has personally reviewed this study, and has reviewed and/or edited this written report and agrees with it. ACC# Date Time Exam [id number] Aug 28, 2017 09:22:00 [id number] Ribs Uni,PA Chst(red srv) R EXAMINATION: Right [...] M.D. F on Aug 28 2017 10:16A [id number] RDZ M.D. F ROBERT ORTIZ M.D. FINAL REPORT The radiology attending physician has personally reviewed this study, and has reviewed and/or edited this written report and agrees with it. Attending: HARPAL GONZALEZ Requesting: RAIMUNDO TRAN Requesting Fax: Attending Fax: Attending ID: [id number] Requesting ID: [id number] Report To 1 ID: [id number] Report To 1 Name: , Report To 1 FAX: NextGen Order #: Raimundo Tran MD IMG XR PROCEDURES Edited Result - Final * (ABNORMAL) Glucose POC (08/28/2017 12:04 PM CDT) Glucose, POC 200(H) 70 - 199 mg/dL [facility] Blood specimen (specimen) 08/28/2017 12:04 PM CDT 08/28/2017 12:04 PM CDT Narrative [facility] - 08/28/2017 12:16 PM CDT Ethel Sawyer MD POINT OF CARE TEST ORDERABL ES Final Result Performing Organization Address [facility] Co de Phone Number [facility] Department of [employer] [place] [address] * Glucose POC (08/28/2017 7:48 AM CDT) [facility] Glucose, POC 188 70 - 199 mg/dL [facility] Blood specimen (specimen) 08/28/2017 7:48 AM CDT 08/28/2017 7:48 AM CDT Narrative [facility] - 08/28/2017 7:51 AM CDT Ethel Sawyer MD POINT OF CARE TEST ORDERABL ES Final Result Performing Organization Address [facility] Co de Phone Number [facility] [employer] [place] [address] * (ABNORMAL) Lipid panel (08/28/2017 2:33 AM CDT) [facility] Cholesterol 115 30 - 200 mg/dL [facility] Comment: Interpretive Data Desirable: ?<200 mg/dL Borderline high: ??200-239 mg/dL High: ? > or = 240 mg/dL Literature Reference: National Cholesterol Education Program (NCEP) Expert Panel on Detection, Evaluation, and Treatment of High Blood Cholesterol in Adults (Adult Treatment Panel III). ??Circulation 2004; 110:227. Current interpretive data was last revised on 2015. Triglycerides 110 0 - 150 mg/dL [facility] Comment: Interpretive Data Desirable: ? < 150 mg/dL Borderline High: ? 150 - 199 mg/dL High: ?200 - 499 mg/dL Very High: ? > or = 499 mg/dL Literature Reference: See Cholesterol Current interpretive data was last revised on 2015. HDL 34(L) >=40 mg/dL [facility] Comment: Interpretive Data Less than 40 mg/dL - low; A major risk factor for heart disease. Greater than or equal to 60 mg/dL - High; ??considered protective of heart disease. Literature Reference: See Cholesterol Current interpretive data was last revised on 2015. LDL, calculated 59 10 - 129 mg/dL [facility] Comment: Interpretive Data Optimal: ? < 100 mg/dL Near Optimal: ?100 - 129 mg/dL Borderline High: ?? 130 - 159 mg/dL High: ?160 - 189 mg/dL Very high: ? > or = 190 mg/dL Literature Reference: See Cholesterol Current interpretive data was last revised on 2015. Non-HDL Cholesterol 81 mg/dL [facility] Comment: Interpretive Data When triglycerides are >200 mg/dL, non-HDL C is a secondary target of therapy, with a goal 30 mg/dL higher than the identified LDL-C goal. Reference: ??See Cholesterol Reference. Current interpretive data was last revised 2015. Blood specimen (specimen) 08/28/2017 2:33 AM CDT 08/28/2017 2:48 AM CDT Narrative [facility] - 08/28/2017 5:53 PM CDT Ethel Sawyer MD LAB BLOOD ORDERABLES Final Result Performing Organization Address [facility] de Phone Number [facility] [place] [address] * (ABNORMAL) Hemoglobin A1c (08/28/2017 2:33 AM CDT) Pathologist [facility] Hgb A1C 8.0(H) 4.0 - 5.6 % [facility] Estimated Average Glucose 183 mg/dL [facility] Comment: The ADA recommends reporting an estimated Average Glucose (eAG) with all Hemoglobin A1c results using the equation derived from a study of 507 normal and diabetic adults. ??Minority populations were underrepresented and children were not included. ?? (Diabetes Care 31:2996-5079, 2007). ??The eAG is not equivalent to a fasting glucose. Blood specimen (specimen) 08/28/2017 2:33 AM CDT 08/28/2017 2:52 AM CDT Narrative [facility] - 08/28/2017 5:15 PM CDT Ethel Sawyer MD LAB BLOOD ORDERABLES Final Result Performing Organization Address [facility] de Phone Number [facility] [place] [address] * (ABNORMAL) Comprehensive metabolic panel (08/28/2017 2:33 AM CDT) [facility] Sodium 140 135 - 145 mmol/L [facility] Potassium, pl 4.6 3.3 - 4.9 mmol/L [facility] CO2 29 22 - 32 mmol/L [facility] BUN 14 8 - 25 mg/dL [facility] Glucose 239(H) 70 - 199 mg/dL [facility] Comment: Interpretive Data Fasting [...] 2017. Creatinine 0.70(L) 0.80 - 1.30 mg/dL [facility] Calcium 9.3 8.5 - 10.3 mg/dL [facility] Chloride 103 97 - 110 mmol/L [facility] Albumin 4.1 3.5 - 5.0 g/dL [facility] AST 53(H) 10 - 50 Units/L [facility] ALT 61(H) 7 - 55 Units/L [facility] Alk phos 78 40 - 130 Units/L [facility] Bilirubin, total 1.4(H) 0.1 - 1.2 mg/dL [facility] Protein, pl 7.5 6.5 - 8.5 g/dL [facility] Anion gap 8 2 - 15 mmol/L [facility] Blood specimen (specimen) 08/28/2017 2:33 AM CDT 08/28/2017 2:48 AM CDT Narrative [facility] - 08/28/2017 3:14 AM CDT Raimundo Tran MD LAB BLOOD ORDERABLES [facility] al Result [facility] [place] [address] * (ABNORMAL) Ammonia (08/28/2017 2:33 AM CDT) Ammonia 58(H) 5 - 50 mcmol/L [facility] Blood specimen (specimen) 08/28/2017 2:33 AM CDT 08/28/2017 2:46 AM CDT Narrative [facility] - 08/28/2017 3:07 AM CDT Raimundo Tran MD LAB BLOOD ORDERABLES Fin al Result [facility] Department [place] [address] * (ABNORMAL) CBC without differential (08/28/2017 2:33 AM CDT) WBC 3.9 3.8 - 9.9 K/cumm [facility] RBC 4.69 4.30 - 5.80 M/cumm [facility] Hgb 13.0 13.0 - 17.5 g/dL [facility] Hct 38.3(L) 38.9 - 50.3 % [facility] MCV 81.7 81.3 - 96.4 fL [facility] MCH 27.7 27.1 - 33.3 pg [facility] MCHC 33.9 32.3 - 35.7 g/dL [facility] RDW CV 15.6(H) 11.1 - 14.9 % [facility] RDW SD 45.7 35.7 - 48.1 fL [facility] NRBC abs 0.00 0.00 - 0.01 K/cumm [facility] Plt 78(L) 150 - 400 K/cumm [facility] MPV 10.8 9.1 - 12.3 fL [facility] Blood specimen (specimen) 08/28/2017 2:33 AM CDT 08/28/2017 2:49 AM CDT Narrative [facility] - 08/28/2017 2:59 AM CDT Raimundo Tran MD LAB BLOOD ORDERABLES Fin al Result [facility] Department [place] [address] * (ABNORMAL) Glucose POC (08/28/2017 12:15 AM CDT) Glucose, POC 217(H) 70 - 199 mg/dL [facility] Blood specimen (specimen) 08/28/2017 12:15 AM CDT 08/28/2017 12:15 AM CDT Narrative [facility] - 08/28/2017 12:16 AM CDT Harpal Gonzalez MD POINT OF CARE TEST ORDERABLES Fi nal Result [facility] [place] [address] * DISCHARGE LABORATORY CUMULATIVE REPORT (08/28/2017 12:00 AM CDT) Narrative 08/28/2017 12:00 AM CDT Ordered by an unspecified provider. Historical Provider LAB BLOOD ORDERABLES Anastasiya l Result documented in this encounter Visit Diagnoses Not on filedocumented in this encounter Care Teams Application Development Consultant Relationship Specialty Start Date End Date Kris Soto MD [address] [place] [address] PCP - General 12/08/16 10/26/18 documented as of this encounter
--- OUTSIDE RECORDS SUMMARY | 2024-05-08 07:38 | XMS_ITS | Encounter Summary ---
Author Organization [facility] Address [address] [place] [address] Phone Care Team Providers Care Insulation Supervisor Name Role Phone Kris Soto MD Primary Care Provide r Encounter Details Date Type Department Care Team (Late st Contact Info) Description 10/10/2017 Telephone [facility] Gastroenterology [address] [place] [address] 8th [place] [address] [place] [address] Jose Miguel MD Social History Tobacco Use Types Packs/Day Years Used Date Smoking Tobacco: Former Sex and Gender Information Value Date Recorded Sex Assigned at Not on file 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 He is now on his way to [place] due to RUQ abdominal pain. I suggested that he should be evaluated at [facility] and if labs or imaging are concerning he may need admission for further workup. documented in this encounter Plan of Treatment Not on file documented as of this encounter Visit Diagnoses Not on filedocumented in this encounter Care Teams Insulation Supervisor Relationship Specialty Start Date End Date Kris Soto MD [address] [place] [address] PCP - General 12/08/16 10/26/18 documented as of this encounter
--- OUTSIDE RECORDS SUMMARY | 2024-05-08 07:38 | XMS_ITS | Encounter Summary ---
Author Organization [facility] Healthcare Address [address] [place] [address] Care Team Providers Care Motor Vehicle Assembler Name Role Phone Kris Soto MD Primary Care Provide r Encounter Details Date Type Department Care Team (Latest Contact Info) Description 07/06/2017 11:59 AM HUMAN RESOURCES OPERATIONS MANAGER - 07/06/2017 11:59 PM [facility] Hospital Encounter [facility] [phone] Kathryn Ellis MD [address] [facility] [address] [place] [address] Discharge Disposition: Discharge to home or self care Social History Tobacco Use Types Packs/Day Years Used Date Smoking Tobacco: Former Sex and Gender Information Value Date Recorded Sex Assigned at Not on file Legal Sex Male 2:52 PM HUMAN RESOURCES OPERATIONS MANAGER Gender Identity Male 10/29/2020 12:37 PM [...] Routine Gen Lab 07/06/2017 12: 20 PM HUMAN RESOURCES OPERATIONS MANAGER CBC WITH AUTO DIFFERENTIAL Routine Gen Lab 07/06/2017 12:20 PM HUMAN RESOURCES OPERATIONS MANAGER [id number], TUMOR MARKER Routine Gen Lab 07/06/2017 12:20 PM HUMAN RESOURCES OPERATIONS MANAGER VITAMIN D 25 HYDROXY Routine Gen Lab 07/06/2017 12:20 PM HUMAN RESOURCES OPERATIONS MANAGER PROTIME-INR Routine Gen Lab 07/06/2017 12:20 PM HUMAN RESOURCES OPERATIONS MANAGER COMPREHENSIVE METABOLIC PANEL Routine Gen Lab 07/06/2017 12:20 PM HUMAN RESOURCES OPERATIONS MANAGER DISCHARGE LABORATORY CUMULATIVE REPORT 07/06/2017 12:00 AM HUMAN RESOURCES OPERATIONS MANAGER documented in this encounter Results * (ABNORMAL) Vitamin D 25 hydroxy (07/06/2017 12:20 PM HUMAN RESOURCES OPERATIONS MANAGER) Vitamin D 25-OH 12(L) 30 - 80 ng/mL [facility] Blood specimen (specimen) 07/06/2017 12:20 PM HUMAN RESOURCES OPERATIONS MANAGER 07/06/2017 1:20 PM HUMAN RESOURCES OPERATIONS MANAGER Narrative [facility] - 07/06/2017 2:13 PM HUMAN RESOURCES OPERATIONS MANAGER Kathryn Ellis MD LAB BLOOD ORDERABLES Fi nal Result Performing Organization Address City/[facility] Co de Phone Number [facility] [place] [address] * [id number], Tumor Marker (07/06/2017 12:20 PM HUMAN RESOURCES OPERATIONS MANAGER) [facility] alpha Fetoprotein 3.8 0.0 - 8.3 ng/mL [facility] Blood specimen (specimen) 07/06/2017 12:20 PM HUMAN RESOURCES OPERATIONS MANAGER 07/06/2017 1:20 PM HUMAN RESOURCES OPERATIONS MANAGER Narrative [facility] - 07/06/2017 2:02 PM HUMAN RESOURCES OPERATIONS MANAGER Kathryn Ellis MD LAB BLOOD ORDERABLES Fi nal Result Performing Organization Address [facility] Co de Phone Number [facility] [place] [address] * (ABNORMAL) Comprehensive metabolic panel (07/06/2017 12:20 PM HUMAN RESOURCES OPERATIONS MANAGER) [facility] Sodium 141 135 - 145 mmol/L [facility] Potassium, pl 4.3 3.3 - 4.9 mmol/L [facility] CO2 28 22 - 32 mmol/L [facility] BUN 13 8 - 25 mg/dL [facility] Glucose 223(H) 70 - 199 mg/dL [facility] Comment: Interpretive Data Fasting glucose >/= [...] 2017. Creatinine 0.64(L) 0.80 - 1.30 mg/dL [facility] Calcium 9.5 8.5 - 10.3 mg/dL [facility] Chloride 103 97 - 110 mmol/L [facility] Albumin 4.1 3.5 - 5.0 g/dL [facility] AST 108(H) 10 - 50 Units/L [facility] ALT 91(H) 7 - 55 Units/L [facility] Alk phos 74 40 - 130 Units/L [facility] Bilirubin, total 1.5(H) 0.1 - 1.2 mg/dL [facility] Protein, pl 7.5 6.5 - 8.5 g/dL [facility] Anion gap 10 2 - 15 mmol/L [facility] Blood specimen (specimen) 07/06/2017 12:20 PM HUMAN RESOURCES OPERATIONS MANAGER 07/06/2017 1:20 PM HUMAN RESOURCES OPERATIONS MANAGER Narrative [facility] - 07/06/2017 1:55 PM HUMAN RESOURCES OPERATIONS MANAGER us Kathryn Ellis MD LAB BLOOD ORDERABLES nal Result [facility] [place] [address] * (ABNORMAL) Differential, auto (07/06/2017 12:20 PM HUMAN RESOURCES OPERATIONS MANAGER) Pathologist [facility] Neutrophil pct 73.7 % [facility] Imm gran pct 0.6 % [facility] Lymphocyte pct 13.7 % [facility] Monocyte pct 8.7 % [facility] Eosinophil pct 2.3 % [facility] Basophil pct 1.0 % [facility] Neutrophil abs 3.83 1.70 - 6.50 K/cumm [facility] Imm gran abs 0.03 0.00 - 0.10 K/cumm [facility] Lymphocyte abs 0.71(L) 0.80 - 3.30 K/cumm [facility] Monocyte abs 0.45 0.20 - 0.80 K/cumm [facility] Eosinophil abs 0.12 0.00 - 0.50 K/cumm [facility] Basophil abs 0.05 0.00 - 0.10 K/cumm [facility] Blood specimen (specimen) 07/06/2017 12:20 PM HUMAN RESOURCES OPERATIONS MANAGER 07/06/2017 1:20 PM HUMAN RESOURCES OPERATIONS MANAGER Narrative [facility] - 07/06/2017 1:37 PM HUMAN RESOURCES OPERATIONS MANAGER us Kathryn Ellis MD LAB BLOOD ORDERABLES Fi nal Result Performing Organization Address City/[facility]/ZIP Co de Phone Number [facility] Department [place] [address] * (ABNORMAL) CBC with auto differential (07/06/2017 12:20 PM HUMAN RESOURCES OPERATIONS MANAGER) WBC 5.2 3.8 - 9.9 K/cumm [facility] RBC 4.89 4.30 - 5.80 M/cumm [facility] Hgb 13.7 13.0 - 17.5 g/dL [facility] Hct 39.8 38.9 - 50.3 % [facility] MCV 81.4 81.3 - 96.4 fL [facility] MCH 28.0 27.1 - 33.3 pg [facility] MCHC 34.4 32.3 - 35.7 g/dL [facility] RDW CV 15.4(H) 11.1 - 14.9 % [facility] RDW SD 45.1 35.7 - 48.1 fL [facility] Plt 92(L) 150 - 400 K/cumm [facility] MPV 10.8 9.1 - 12.3 fL [facility] NRBC abs 0.00 0.00 - 0.01 K/cumm [facility] Blood specimen (specimen) 07/06/2017 12:20 PM HUMAN RESOURCES OPERATIONS MANAGER 07/06/2017 1:20 PM HUMAN RESOURCES OPERATIONS MANAGER Narrative [facility] - 07/06/2017 1:37 PM HUMAN RESOURCES OPERATIONS MANAGER us Kathryn Ellis MD LAB BLOOD ORDERABLES Fi nal Result Performing Organization Address City/[facility]/ZIP Co de Phone Number [facility] [place] [address] * Protime-INR (07/06/2017 12:20 PM HUMAN RESOURCES OPERATIONS MANAGER) PT 13.0 8.5 - 13.0 sec [facility] INR 1.21 0.80 - 1.21 [facility] Comment: Interpretive Data Inpatient therapeutic ranges* Atrial fibrillation ?2.0-3.0 INR Venous thrombo-embolism ?2.0-3.0 INR Bioprosthetic heart valve ?* Mechanical heart valve, bileaflet or tilting disk,aortic position ? 2.0-3.0 INR All other,or bileaflet or tilting disk, in mitral position ? 2.5-3.5 INR *See the pharmacy resource directory (PHRED) for an updated copy of the Tool Book at [email or web address] Current Interpretive Data was last revised 2011. Blood specimen (specimen) 07/06/2017 12:20 PM HUMAN RESOURCES OPERATIONS MANAGER 07/06/2017 1:20 PM HUMAN RESOURCES OPERATIONS MANAGER Narrative [facility] - 07/06/2017 1:36 PM HUMAN RESOURCES OPERATIONS MANAGER us Kathryn Ellis MD LAB BLOOD ORDERABLES Fi nal Result [facility] [place] [address] * DISCHARGE LABORATORY CUMULATIVE REPORT (07/06/2017 12:00 AM HUMAN RESOURCES OPERATIONS MANAGER) Narrative 07/06/2017 12:00 AM HUMAN RESOURCES OPERATIONS MANAGER Ordered by an unspecified provider. us Historical Provider LAB BLOOD ORDERABLES Anastasiya l Result documented in this encounter Visit Diagnoses Not on filedocumented in this encounter Care Teams Motor Vehicle Assembler Relationship Specialty Start Date End Date Kris Soto MD [address] [id number] PCP - General 12/08/16 10/26/18 documented as of this encounter
--- OUTSIDE RECORDS SUMMARY | 2024-05-08 07:38 | XMS_ITS | Encounter Summary ---
Author Organization [facility] Address [address] [place] [address] Phone Care Team Providers Care Fireworks Assembler Name Role Phone Kris Soto MD Primary Care Provide r Encounter Details Date Type Department Care Team (Late st Contact Info) Description 02/02/2018 Orders Only [facility] [address] [facility] Medicine 8th [place] [address] [place] [id number] Svetlana Aguilar RMA Social History Tobacco Use Types Packs/Day Years Used Date Smoking Tobacco: Former Smokeless Tobacco: Never Alcohol Use Standard Drinks/Week Comments No 0 (1 standard drink = 0.6 oz pur e alcohol) Sex and Gender Information Value Date Recorded Sex Assigned at Not on file 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
--- OUTSIDE RECORDS SUMMARY | 2024-05-08 07:38 | XMS_ITS | Encounter Summary ---
Author Organization [facility] Address [address] [place] [address] Phone Care Team Providers Care Section Leader And Machine Setter Name Role Phone Kris Soto MD Primary Care Provide r Encounter Details Date Type Department Care Team (Late st Contact Info) Description 10/12/2017 Documentation [facility] Gastroenterology [facility] 8th [place] [address] [place] [address] Christiana Carrillo RN Social History Tobacco Use Types Packs/Day Years Used Date Smoking Tobacco: Former Smokeless Tobacco: Never Alcohol Use Standard Drinks/Week Comments No 0 (1 standard drink = 0.6 oz pur e alcohol) Sex and Gender Information Value Date Recorded Sex Assigned at Not on file 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 [place] Attn: Medical Records Department From: Christiana Carrillo RN, BSN Requesting Physician: Kathryn Ellis MD--PATIENT'S PIANO PROFESSOR Patient Name: CAMILO CURRY : 1970 Medical Records requested to facilitate treatment of our patient listed above. We are requesting: EMERGENCY ROOM INFORMATION FROM MOST RECENT VISIT: MD SUMMARY, LABS, ABDOMINAL IMAGING, ANY DIAGNOSTIC TESTING Medical Records are needed by: HEIKE Please fax to [phone]. According to HIPAA regulation, a signed patient request for release of information is NOT required WHEN the request is for TREATMENT or BILLING of a patient. Any and all assistance in returning the requested information in a timely fashion would be appreciated and would assist in expediting patientcare. If the sugar cane farm manager of your medical records department has any questions, please contact Lynda Ballard at for clarification or the [email or web address] web site (HIPAA Protecting Privacy of Patient Health Information Act 08/16/04 Div of Procedural Enforcement Codes). documented in this encounter Plan of Treatment Not on file documented as of this encounter Visit Diagnoses Not on filedocumented in this encounter Care Teams Section Leader And Machine Setter Relationship Specialty Start Date End Date Kris Soto MD [address] [place] [address] PCP - General 12/08/16 10/26/18 documented as of this encounter
--- OUTSIDE RECORDS SUMMARY | 2024-05-08 07:38 | XMS_ITS | Encounter Summary ---
Author Organization [facility] Healthcare Address [address] [place] [address] Care Team Providers Care Medical Registrar Name Role Phone Kris Soto MD Primary Care Provide r Encounter Details Date Type Department Care Team (Latest Contact Info) Description 07/06/2017 8:31 AM CLINICAL DATA SPECIALIST - 07/06/2017 11:59 PM [facility] Hospital Encounter [facility] OP INTERIM [phone] Samaria Ellis MD [address] [facility] [address] [place] [address] Discharge Disposition: Discharge to home or self care Social History Tobacco Use Types Packs/Day Years Used Date Smoking Tobacco: Former Sex and Gender Information Value Date Recorded Sex Assigned at Not on file Legal Sex Male 2:52 PM CLINICAL DATA SPECIALIST Gender Identity Male 10/29/2020 12:37 PM [...] ILIAC, COMPLETE BILATERAL Routine 07/06/2017 4:11 PM CLINICAL DATA SPECIALIST US ABDOMEN LIMITED Routine 07/06/2017 4: 11 PM CLINICAL DATA SPECIALIST documented in this encounter Results * US Abdomen Limited (07/06/2017 4:11 PM CLINICAL DATA SPECIALIST) Anatomical Region Laterality Modality Abdomen N/A Ultrasound 07/06/2017 4:11 PM CLINICAL DATA SPECIALIST Narrative 07/06/2017 5:28 PM CLINICAL DATA SPECIALIST TAMIKO WEEKS M.D. FINAL REPORT ACC# ??Date Time ??Exam [id number] Jul 06, 2017 10:11:00 00372 Abd Orgn Duplex [id number] Jul 06, 2017 10:11:00 [id number] Sono Abd Lmtd EXAMINATION: ?? 1. LIMITED [...] TAMIKO WEEKS M.D. on Jul ??2017 11:26A [id number] WEEKS M.D. FINAL REPORT Attending: ??JENS, ??SAMARIA Requesting: ??JENS, ??SAMARIA Requesting Fax: ?? Attending Fax: ?? Attending ID: ??[id number] Requesting ID: ??[id number] Report To 1 ID: ??[id number] ? Report To 1 Name: ??, ?? Report To 1 FAX: ?? NextGen Order #: ?? Procedure Note Miscellaneous, Not In File - 07/06/2017 TAMIKO WEEKS M.D. FINAL REPORT ACC# Date Time Exam [id number] Jul 06, 2017 10:11:00 [id number] [facility] Orgn Duplex [id number] Jul 06, 2017 10:11:00 [id number] Sono Abd Lmtd EXAMINATION: 1. LIMITED ABDOMINAL [...] WEEKS M.D. on Jul 06 2017 11:26A [id number] WEEKS M.D. FINAL REPORT Attending: SAMARIA ELLIS Requesting: SAMARIA ELLIS Requesting Fax: Attending Fax: Attending ID: [id number] Requesting ID: [id number] Report To 1 ID: [id number] Report To 1 Name: , Report To 1 FAX: NextGen Order #: us Samaria Ellis MD IMG US PROCEDURES Final Result * US Duplex Scan of Aorta; Inferior Vena Cava, Iliac, Complete (07/06/2017 4:11 PM CLINICAL DATA SPECIALIST) Anatomical Region Laterality Modality Vascular Ultrasound 07/06/2017 4:11 PM CLINICAL DATA SPECIALIST Narrative 07/06/2017 5:28 PM CLINICAL DATA SPECIALIST TAMIKO WEEKS M.D. FINAL REPORT ACC# ??Date Time ??Exam [id number] Jul 06, 2017 10:11:00 [id number] Abd Orgn Duplex [id number] Jul 06, 2017 10:11:00 [id number] Sono Abd Lmtd EXAMINATION: ?? 1. LIMITED [...] TAMIKO WEEKS M.D. on Jul ??2017 11:26A [id number] WEEKS M.D. FINAL REPORT Attending: ??JENS, ??SAMARIA Requesting: ??JENS, ??SAMARIA Requesting Fax: ?? Attending Fax: ?? Attending ID: ??[id number] Requesting ID: ??[id number] Report To 1 ID: ??[id number] ? Report To 1 Name: ??, ?? Report To 1 FAX: ?? NextGen Order #: ?? Procedure Note Miscellaneous, Not In File - 07/06/2017 TAMIKO WEEKS M.D. FINAL REPORT ACC# Date Time Exam [id number] Jul 06, 2017 10:11:00 [id number] Abd Orgn Duplex [id number] Jul 06, 2017 10:11:00 46052 Sono Abd Lmtd EXAMINATION: 1. LIMITED ABDOMINAL [...] by: Tamiko Weeks M.D. Requested By: SAMARIA ELILS M.D. Dictated By: TAMIKO WEEKS M.D. on Jul 06 2017 11:26A This document has been electronically signed by: TAMIKO WEEKS M.D. on Jul 06 2017 11:26A [id number] WEEKS M.D. FINAL REPORT Attending: SAMARIA ELLIS Requesting: SAMARIA ELLIS Requesting Fax: Attending Fax: Attending ID: [id number] Requesting ID: [id number] Report To 1 ID: [id number] Report To 1 Name: , Report To 1 FAX: NextGen Order #: Samaria Ellis MD CV VASCULAR PROCEDURES Final Result documented in this encounter Visit Diagnoses Not on filedocumented in this encounter Care Teams Medical Registrar Relationship Specialty Start Date End Date Kris Soto MD [address] [place] [address] PCP - General 12/08/16 10/26/18 documented as of this encounter
--- OUTSIDE RECORDS SUMMARY | 2024-05-08 07:38 | XMS_ITS | Encounter Summary ---
Author Organization [facility] Address [address] [place] [address] Phone Care Team Providers Care Field Broomer Name Role Phone Kris Soto MD Primary Care Provide r Encounter Details Date Type Department Care Team (Late st Contact Info) Description 10/12/2017 Documentation [facility] Gastroenterology [facility] 8th [place] [address] [place] [address] Christiana Carrillo RN Social History Tobacco Use Types Packs/Day Years Used Date Smoking Tobacco: Former Smokeless Tobacco: Never Alcohol Use Standard Drinks/Week Comments No 0 (1 standard drink = 0.6 oz pur e alcohol) Sex and Gender Information Value Date Recorded Sex Assigned at Not on file 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 We are requesting: EMERGENCY ROOM INFORMATION FROM MOST RECENT VISIT: MD SUMMARY, LABS, ABDOMINAL IMAGING, ANY DIAGNOSTIC TESTING Medical Records are needed by: HEIKE Please fax to [phone]. According to HIPAA regulation, a signed patient request for release of information is NOT required WHEN the request is for TREATMENT or BILLING of a patient. Any and all assistance in returning the requested information in a timely fashion would be appreciated and would assist in expediting patientcare. If the regional production manager of your medical records department has any questions, please contact Lynda Ballard at for clarification or the [email or web address] web site (HIPAA Protecting Privacy of Patient Health Information Act 08/16/04 Div of Procedural Enforcement Codes). documented in this encounter Plan of Treatment Not on file documented as of this encounter Visit Diagnoses Not on filedocumented in this encounter Care Teams Field Broomer Relationship Specialty Start Date End Date Kris Soto MD [address] [place], [place] [address] PCP - General 12/08/16 10/26/18 documented as of this encounter
--- OUTSIDE RECORDS SUMMARY | 2024-05-08 07:38 | XMS_ITS | Encounter Summary ---
Author Organization [facility] Healthcare Address [address] [place] [address] Care Team Providers Care Miller First Name Role Phone Kris Soto MD Primary Care Provide r Encounter Details Date Type Department Care Team (Late st Contact Info) Description 11/25/2016 3:21 PM CDT - 11/25/2016 11:59 PM CDT Hospital Encounter [facility] OP INTERIM Kris Soto MD [address] [place] [address] Discharge Disposition: Discharge to home or self care Social History Tobacco Use Types Packs/Day Years Used Date Smoking Tobacco: Never Assessed Sex and Gender Information Value Date Recorded Sex Assigned at Not on file 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
--- OUTSIDE RECORDS SUMMARY | 2024-05-08 07:38 | XMS_ITS | Encounter Summary ---
Author Organization [facility] Healthcare Address [address] [place] [address] Care Team Providers Care Public Address Servicer Name Role Phone Kris Soto MD Primary Care Provide r Reason for Visit * Reason Comments Abdominal Pain Encounter Details Date Type Department Care Team (Late st Contact Info) Description 10/11/2017 12:26 AM CDT - 10/11/2017 3:50 AM CDT Emergency [facility] Emergency Department [address] [place] [address] Cynthia Rodriguez MD [address] [facility] [address] [place], [place] [id number] RUQ pain (Primary Dx); Liver cirrhosis secondary [...] on file Legal Sex Male 2:52 PM PERSONNEL DIRECTOR Gender Identity Male 10/29/2020 12:37 PM [...] experienced this pain previously, was admitted to [facility] in August with nl w/u and nocause [...] PO oxy/diazepam now, avoid IV narcotics, d/w [facility] liver team when w/u complete. Will also [...] ORDERABLES Anastasiya l Result Performing Organization Address [facility] Co de Phone Number MOHINDER LITTLECH [address] [employer] [place] [address] * eGFR (10/11/2017 1:34 AM CDT) eGFR >60 mL/min/1.7 3 m2 MOHINDER LITTLE Comment: Interpretive Data Reference Interval Normal ?>/= 90 mL/min/1.73m2 Mildly decreased* ? 60 - 89 mL/min/1.73m2 Mildly to moderately decreased ?45 - 59 mL/min/1.73m2 Moderately to severely decreased ??30 - 44 mL/min/1.73m2 Severely decreased ?15 - 29 mL/min/1.73m2 Kidney Failure ?< 15 ??mL/min/1.73m2 *Relative to young adult level If -Trinidadian multiply value by 1.16. Estimated glomerular filtration [...] ORDERABLES Anastasiya l Result Performing Organization Address [facility] Co de Phone Number MOHINDER LITTLECH [address] Department [place] [address] * (ABNORMAL) Differential, auto (10/11/2017 1:34 AM [...] ORDERABLES Anastasiya l Result Performing Organization Address City/[facility]/ZIP Co de Phone Number [facility]INDER [facility]HEL[facility] [address] [facility] Department [place] [address] * (ABNORMAL) CBC with auto differential (10/11/2017 1:34 AM CDT) Pathologist [facility] WBC 3.7(L) 3.8 - 9.9 K/cumm [facility] RBC 4.75 4.30 - 5.80 M/cumm [facility] Hgb 13.3 13.0 - 17.5 g/dL [facility] Hct 39.5 38.9 - 50.3 % [facility] MCV 83.2 81.3 - 96.4 fL [facility] MCH 28.0 27.1 - 33.3 pg [facility] MCHC 33.7 32.3 - 35.7 g/dL [facility] RDW CV 14.7 11.1 - 14.9 % [facility] RDW SD 44.7 35.7 - 48.1 fL [facility] Plt 74(L) 150 - 400 K/cumm [facility] MPV 10.5 9.1 - 12.3 fL [facility] NRBC abs 0.00 0.00 - 0.01 K/cumm [facility] Blood specimen (specimen) 10/11/2017 1:34 AM CDT 10/11/2017 1:51 AM CDT Narrative MOHINDER MICHELWCH - 10/11/2017 4:02 AM CDT Cynthia Rodriguez MD LAB BLOOD ORDERABLES Edit ed Result - Final Performing Organization Address [facility]/ZIP Co de Phone Number MOHINDER LITTLE [address] [employer]. Department [place] [address] * Lipase (10/11/2017 1:34 AM CDT) Lipase 36 10 - 99 Units/L [facility] Blood specimen (specimen) 10/11/2017 1:34 AM CDT 10/11/2017 1:51 AM CDT Narrative [facility] - 10/11/2017 2:17 AM CDT us Cynthia Rodriguez MD LAB BLOOD ORDERABLES Anastasiya l Result [facility] [address] [address] Department [place] [address] * (ABNORMAL) Comprehensive metabolic panel (10/11/2017 1:34 AM CDT) Pathologist [facility] Sodium 135 135 - 145 mmol/L [facility] Potassium, pl 4.3 3.3 - 4.9 mmol/L [facility] CO2 26 22 - 32 mmol/L [facility] BUN 10 8 - 25 mg/dL [facility] Glucose 395(H) 70 - 199 mg/dL [facility] Comment: Critical result called to [...] MD LAB BLOOD ORDERABLES Anastasiya l Result [facility] [address] [facility]. Department [place] [address] * (ABNORMAL) Urinalysis reflex to microscopic and [...] tendency for uric acid stone formation. Source: [employer]. Last revised 05-14-2017 us Cynthia Rodriguez MD LAB MICROBIOLOGY - GENERA L ORDERABLES Final Result MOHINDER MICHELWCH [address] [facility]. [place] [address] documented in this encounter Visit [...] RN) documented in this encounter Care Teams Public Address Servicer Relationship Specialty Start Date End Date Kris Soto MD [address] [place] [address] PCP - General 12/08/16 10/26/18 documented as of this encounter
--- OUTSIDE RECORDS SUMMARY | 2024-05-08 07:39 | XMS_ITS | Encounter Summary ---
Author Organization [facility] Healthcare Address [address] [place] [address] Care Team Providers Care Systems Architecture Analyst Name Role Phone No, Physician Primary Care Provider [phone] Encounter Details Date Type Department Care Team (Late st Contact Info) Description 10/11/2016 6:29 AM CDT - 10/11/2016 1:24 PM CDT Emergency [facility] Emergency Department [address] [place] [phone] Unknown, Notinfile Discharge Disposition: Discharge to home or self care Social History Tobacco Use Types Packs/Day Years Used Date Smoking Tobacco: Never Assessed Sex and Gender Information Value Date Recorded Sex Assigned at Not on file 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 Department [place] [address] * Glucose POC (10/11/2016 11:15 AM CDT) Pathologist [facility] Glucose, POC 168 70 - 199 mg/dL [facility] Blood specimen (specimen) 10/11/2016 11:15 AM CDT 10/11/2016 11:15 AM CDT us Notinfile Unknown POINT OF CARE TEST ORDERABLES Final Result Performing Organization Address City/[facility]/[place] [address] * (ABNORMAL) Hepatic function panel (10/11/2016 8:50 AM CDT) [facility] AST 65(H) 10 - 50 Units/L [facility] Comment:Hemolyzed; result ma y be falsely elevated. ALT 65(H) 7 - 55 Units/L [facility] Alk phos 84 40 - 130 Units/L [facility] Bilirubin, total 1.4(H) 0.1 - 1.2 mg/dL [facility] Bilirubin, direct 0.2 0.1 - 0.3 mg/dL [facility] Protein, pl 7.1 6.5 - 8.5 g/dL [facility] Albumin 3.7 3.5 - 5.0 g/dL [facility] Blood specimen (specimen) 10/11/2016 8:50 AM CDT 10/11/2016 9:09 AM CDT us Sujatha Gamez MD LAB BLOOD ORDERAB [place] [address] * (ABNORMAL) Basic metabolic panel (10/11/2016 8:50 AM CDT) [facility] Sodium 140 135 - 145 mmol/L [facility] Potassium, pl 4.4 3.3 - 4.9 mmol/L [facility] Comment:Hemolyzed; (++); pot assium value may be falsely elevated by as much as 0.3 - 0.5 mmol/L. Suggest redraw and reanalysis. Chloride 105 97 - 110 mmol/L [facility] CO2 25 22 - 32 mmol/L [facility] BUN 13 8 - 25 mg/dL [facility] Glucose 280(H) 70 - 199 mg/dL [facility] Creatinine 0.78(L) 0.80 - 1.30 mg/dL [facility] Calcium 9.5 8.5 - 10.3 mg/dL [facility] Anion gap 10 2 - 15 mmol/L [facility] Blood specimen (specimen) 10/11/2016 8:50 AM CDT 10/11/2016 9:09 AM CDT us Sujatha Gamez MD LAB BLOOD ORDERAB LES Final Result [facility] Department [place] [address] * (ABNORMAL) Differential, auto (10/11/2016 8:50 AM CDT) Neutrophil pct 65.2 % [facility] Imm gran pct 0.8 % [facility] Lymphocyte pct 19.7 % [facility] Monocyte pct 10.9 % [facility] Eosinophil pct 2.6 % [facility] Basophil pct 0.8 % [facility] Neutrophil abs 2.52 1.70 - 6.50 K/cumm [facility] Imm gran abs 0.03 0.00 - 0.10 K/cumm [facility] Lymphocyte abs 0.76(L) 0.80 - 3.30 K/cumm [facility] Monocyte abs 0.42 0.20 - 0.80 K/cumm [facility] Eosinophil abs 0.10 0.00 - 0.50 K/cumm [facility] Basophil abs 0.03 0.00 - 0.10 K/cumm [facility] Blood specimen (specimen) 10/11/2016 8:50 AM CDT 10/11/2016 9:09 AM CDT us Sujatha Gamez MD LAB BLOOD ORDERAB LES Final Result [facility] Department [place] [address] * (ABNORMAL) CBC with auto differential (10/11/2016 8:50 AM CDT) [facility] WBC 3.86 3.80 - 9.90 K/cumm [facility] RBC 4.79 4.30 - 5.80 M/cumm [facility] Hgb 13.4 13.0 - 17.5 g/dL [facility] Hct 39.2 38.9 - 50.3 % [facility] MCV 81.8 81.3 - 96.4 fL [facility] MCH 28.0 27.1 - 33.3 pg [facility] MCHC 34.2 32.3 - 35.7 g/dL [facility] RDW CV 14.7 11.1 - 14.9 % [facility] RDW SD 43.4 35.7 - 48.1 fL [facility] Plt 82(L) 150 - 400 K/cumm [facility] MPV 10.9 9.1 - 12.3 fL [facility] NRBC 0.0 0.0 - 0.2 % [facility] NRBC abs 0.00 0.00 - 0.01 K/cumm [facility] Blood specimen (specimen) 10/11/2016 8:50 AM CDT 10/11/2016 9:09 AM CDT us Sujatha Gamez MD LAB BLOOD ORDERAB LES Final Result [facility] Department [place] [address] * POCT BETA-HYDROXYBUTYRATE WHOLE BLOOD (10/11/2016 6:45 AM CDT) Pathologist [facility] Beta Hydroxybutyrate , Whole Blood, Precision X-tra POC 0.1 0.0 - 0.5 mmol/L [facility] Blood specimen (specimen) 10/11/2016 6:45 AM CDT 10/12/2016 9:21 AM CDT us Notinfile Unknown LAB BLOOD ORDERABLES Final Res ult Performing Organization Address City/[facility]/ZIP Co de Phone Number [facility] [place] [address] * (ABNORMAL) Glucose POC (10/11/2016 6:40 AM CDT) [facility] Glucose, POC 342(H) 70 - 199 mg/dL [facility] Blood specimen (specimen) 10/11/2016 6:40 AM CDT 10/11/2016 6:40 AM CDT us Notinfile Unknown POINT OF CARE TEST ORDERABLES Final Result Performing Organization Address City/[facility] Co de Phone Number [facility] [place] [address] documented in this encounter Visit Diagnoses Not on filedocumented in this encounter Care Teams Systems Architecture Analyst Relationship Specialty Start Date End Date No, Physician PCP - General 09/16/16 11/05/16 documented as of this encounter
--- OUTSIDE RECORDS SUMMARY | 2024-05-08 07:39 | XMS_ITS | Encounter Summary ---
Author Organization [facility] Facility Care Team Providers Care Workforce Consultant Name Role Phone Unavailable Primary Care Provider Unavailabl e Encounter Details Date Type Department Care Team (Latest Contact Info) Description 06/01/2016 4:43 AM PRINTING MACHINIST - 06/02/2016 4:40 PM [facility] Hospital Encounter [facility] Joel Taylor MD [address] [place] [address] Edmond Castaneda MD [address] [place] [address] Hepatic failure, without coma (CMS/HCC); Secondary esophageal varices without bleeding (CMS/HCC); Hematemesis; Type 2 diabetes mellitus with hyperglycemia (CMS/HCC); Portal hypertension (CMS/HCC); Nonalcoholic steatohepatitis (BLAND); Major depressive disorder, single episode; History of colonic polyps; Spinal stenosis; Personal history of nicotine dependence; Patient's unintentional underdosing of medication regimen for other reason; Other diseases of stomach and duodenum; Duodenitis without bleeding; penitentiary current use of insulin (CMS/HCC); Anxiety disorder; [...] on file Legal Sex Male 2:52 PM PRINTING MACHINIST Gender Identity Male 10/29/2020 12:37 PM CDT Sexual Orientation Straight 10/29/2020 12 :37 PM CDT documented as of this encounter Last Filed Vital Signs Vital Sign Reading Time Taken Comments Blood Pressure 147/77 06/02/2016 10:16 AM PRINTING MACHINIST Pulse 90 06/02/2016 10:16 AM PRINTING MACHINIST Temperature - - Respiratory Rate - - Oxygen Saturation 100% 06/02/2016 10:16 AM PRINTING MACHINIST Inhaled Oxygen Concentration - - Weight 112.9 kg (248 lb 14 oz) 06/02/2016 5:00 A M PRINTING MACHINIST Height 172.7 cm (5' 8 ) 06/01/2016 5:16 AM PRINTING MACHINIST Body Mass Index 37.84 06/01/2016 5:16 AM PRINTING MACHINIST documented in this encounter Medications at Time [...] GLUCOSE, POC Routine 06/02/2016 4: 02 PM PRINTING MACHINIST BLOOD GLUCOSE, POC Routine 06/02/2016 11 :29 AM PRINTING MACHINIST BLOOD GLUCOSE, POC Routine 06/02/2016 7: 27 AM PRINTING MACHINIST UPPER GASTROINTESTINAL ENDOSCOPY REPORT 06/02/2016 DISCHARGE LABORATORY CUMULATIVE REPORT 06/02/2016 PLASMA PROTHROMBIN TIME (PT) Routine 06/01/2016 8:39 PM PRINTING MACHINIST PLASMA COMPREHENSIVE METABOLIC PANEL Routine 06/01/2016 8:39 PM PRINTING MACHINIST BLOOD CELL COUNT Routine 06/01/2016 8:39 PM PRINTING MACHINIST BLOOD GLUCOSE, POC Routine 06/01/2016 8: 08 PM PRINTING MACHINIST BLOOD GLUCOSE, POC Routine 06/01/2016 4: 05 PM PRINTING MACHINIST BLOOD GLUCOSE, POC Routine 06/01/2016 11 :22 AM PRINTING MACHINIST BLOOD GLUCOSE, POC Routine 06/01/2016 8: 34 AM PRINTING MACHINIST VLWU DUPLEX SCAN OF AORTA; INFERIOR VENA CAVA, ILIAC, COMPLETE BILATERAL Routine 06/01/2016 8:14 AM PRINTING MACHINIST SERUM MAGNESIUM Routine 06/01/2016 7:03 AM PRINTING MACHINIST SERUM IRON PROFILE Routine 06/01/2016 7: 03 AM PRINTING MACHINIST SERUM FERRITIN Routine 06/01/2016 7:03 AM PRINTING MACHINIST SERUM CYANOCOBALAMIN (VITAMIN B12) Routine 06/01/2016 7:03 AM PRINTING MACHINIST PLASMA PROTHROMBIN TIME (PT) Routine 06/01/2016 7:03 AM PRINTING MACHINIST PLASMA PHOSPHORUS Routine 06/01/2016 7:0 3 AM PRINTING MACHINIST PLASMA PARTIAL THROMBOPLASTIN TIME (PTT) Routine 06/01/2016 7:03 AM PRINTING MACHINIST PLASMA HEPATIC FUNCTION PANEL Routine 06/01/2016 7:03 AM PRINTING MACHINIST PLASMA BASIC METABOLIC PANEL Routine 06/01/2016 7:03 AM PRINTING MACHINIST BLOOD HEMOGLOBIN A1C Routine 06/01/2016 7:03 AM PRINTING MACHINIST BLOOD CELL COUNT (CBC) Routine 7 7:03 AM PRINTING MACHINIST BLOOD ABO, RH, INDIRECT AB SCREEN Routine 06/01/2016 7:03 AM PRINTING MACHINIST BLOOD CELL MORPHOLOGIC EXAM Routine 06/01/2016 7:03 AM PRINTING MACHINIST BLOOD GLUCOSE, POC Routine 06/01/2016 5: 28 AM PRINTING MACHINIST ELECTROCARDIOGRAPHY (ECG) 06/01/2016 documented in this encounter Results * Blood glucose, POC (06/02/2016 4:02 PM PRINTING MACHINIST) Glucose, POC, bld 91 70 - 199 mg/dl CDR HISTORICAL RESULTS Blood specimen (specimen) 06/02/2016 4:02 PM PRINTING MACHINIST us Joel Norris MD LAB BLOOD ORDERABLES Fin al Result Performing Organization Address [facility] de Phone Number CDR HISTORICAL RESULTS * Blood glucose, POC (06/02/2016 11:29 AM PRINTING MACHINIST) Glucose, POC, bld 175 70 - 199 mg/dl CDR HISTORICAL RESULTS Blood specimen (specimen) 06/02/2016 11:29 AM PRINTING MACHINIST Joel Norris MD LAB BLOOD ORDERABLES Fin al Result Performing Organization Address [facility] Co de Phone Number CDR HISTORICAL RESULTS * Blood glucose, POC (06/02/2016 7:27 AM PRINTING MACHINIST) Glucose, POC, bld 110 70 - 199 mg/dl CDR HISTORICAL RESULTS Blood specimen (specimen) 06/02/2016 7:27 AM PRINTING MACHINIST Result [facility] Joel Norris MD LAB BLOOD ORDERABLES Fin al Result CDR HISTORICAL RESULTS * DISCHARGE LABORATORY CUMULATIVE REPORT (06/02/2016) Narrative 06/02/2016 Ordered by an unspecified provider. Historical Provider LAB BLOOD ORDERABLES Anastasiya l Result * UPPER GASTROINTESTINAL ENDOSCOPY REPORT (06/02/2016) Anatomical Region Laterality Modality Other Narrative 06/02/2016 Ordered by an unspecified provider. Result [facility] Historical Provider GI PROCEDURE ORDERABLES F inal Result * (ABNORMAL) Plasma comprehensive metabolic panel (06/01/2016 8:39 PM PRINTING MACHINIST) Sodium 141 135 - 145 mmol/L CDR [...] CDR HISTORICAL RESULTS Plasma 06/01/2016 8:39 PM PRINTING MACHINIST Result [facility] Vicente Drew MD LAB BLOOD ORDERABLES Final Result CDR HISTORICAL RESULTS * (ABNORMAL) Plasma prothrombin time (PT) (06/01/2016 8:39 PM PRINTING MACHINIST) Prothrombin time (PT) 14.2(H) 9.2 - 14.0 [...] the Tool Book at http://[email or web address]/pharmacy.nsf Current Interpretive Data was last revised 2011. Plasma 06/01/2016 8:39 PM PRINTING MACHINIST us Vicente Drew MD LAB BLOOD ORDERABLES Final Result CDR HISTORICAL RESULTS * (ABNORMAL) Blood cell count [CBC] express (06/01/2016 8:39 PM PRINTING MACHINIST) Pathologist [facility] [place] WBC 5.0 3.8 - 9.9 K/cumm CDR [...] RESULTS Blood specimen (specimen) 06/01/2016 8:39 PM PRINTING MACHINIST Vicente Drew MD LAB BLOOD ORDERABLES Final Result Performing Organization Address [facility] de Phone Number CDR HISTORICAL RESULTS * Blood glucose, POC (06/01/2016 8:08 PM PRINTING MACHINIST) Glucose, POC, bld 129 70 - 199 mg/dl CDR HISTORICAL RESULTS Blood specimen (specimen) 06/01/2016 8:08 PM PRINTING MACHINIST Joel Norris MD LAB BLOOD ORDERABLES Fin al Result Performing Organization Address [facility] de Phone Number CDR HISTORICAL RESULTS * Blood glucose, POC (06/01/2016 4:05 PM PRINTING MACHINIST) Glucose, POC, bld 116 70 - 199 mg/dl CDR HISTORICAL RESULTS Blood specimen (specimen) 06/01/2016 4:05 PM PRINTING MACHINIST Joel Norris MD LAB BLOOD ORDERABLES Fin al Result Performing Organization Address [facility] de Phone Number CDR HISTORICAL RESULTS * Blood glucose, POC (06/01/2016 11:22 AM PRINTING MACHINIST) Glucose, POC, bld 127 70 - 199 mg/dl CDR HISTORICAL RESULTS Blood specimen (specimen) 06/01/2016 11:22 AM PRINTING MACHINIST Joel Norris MD LAB BLOOD ORDERABLES Fin al Result Performing Organization Address [place]/[facility]/ZIP Co de Phone Number CDR HISTORICAL RESULTS * Blood glucose, POC (06/01/2016 8:34 AM PRINTING MACHINIST) Glucose, POC, bld 140 70 - 199 mg/dl CDR HISTORICAL RESULTS Blood specimen (specimen) 06/01/2016 8:34 AM PRINTING MACHINIST Joel Norris MD LAB BLOOD ORDERABLES Fin al Result CDR HISTORICAL RESULTS * US Duplex Scan of Aorta; Inferior Vena Cava, Iliac, Complete (06/01/2016 8:14 AM PRINTING MACHINIST) Anatomical Region Laterality Modality Vascular Ultrasound 06/01/2016 8:14 AM PRINTING MACHINIST Narrative 06/01/2016 10:51 AM PRINTING MACHINIST JOEL FRIEDMAN M.D. FINAL REPORT ACC# ??Date Time ??Exam [id number] Jun 01, 2016 08:14:00 [id number] Abd Orgn Duplex EXAMINATION: ?LIVER DOPPLER - [...] FRIEDMAN M.D. on Jun 01 2016 10:51A [id number] Procedure Note Provider, MD Tyler - 09/10/2016 JOEL FRIEDMAN M.D. FINAL REPORT ACC# Date Time Exam [id number] Jun 01, 2016 08:14:00 [id number] Abd Orgn Duplex EXAMINATION: LIVER DOPPLER - [...] FRIEDMAN M.D. on Jun 01 2016 10:51A [id number] us Historical Provider CV VASCULAR PROCEDURES Fi nal Result * Serum cyanocobalamin (vitamin B12) (06/01/2016 7:03 AM PRINTING MACHINIST) Cyanocobalamin (Vit B12) 508 210 - 900 pg/ml CDR HISTORICAL RESULTS Serum 06/01/2016 7:03 AM PRINTING MACHINIST Joel Norris MD LAB BLOOD ORDERABLES Fin al Result Performing Organization Address [facility] Co de Phone Number CDR HISTORICAL RESULTS * Serum iron profile (06/01/2016 7:03 AM PRINTING MACHINIST) Iron 146 50 - 150 mcg/dl CDR HISTORICAL RESULTS UIBC 209 112 - 347 mcg/dl CDR HISTORICAL RESULTS TIBC 355 250 - 400 mcg/dl CDR HISTORICAL RESULTS Transferrin saturation 41 20 - 50 % CDR HISTORICAL RESULTS Serum 06/01/2016 7:03 AM PRINTING MACHINIST Joel Norris MD LAB BLOOD ORDERABLES Fin al Result Performing Organization Address [facility] Phone Number CDR HISTORICAL RESULTS * Serum ferritin (06/01/2016 7:03 AM PRINTING MACHINIST) Ferritin 32 30 - 400 ng/ml CDR HISTORICAL RESULTS Serum 06/01/2016 7:03 AM PRINTING MACHINIST Joel Norris MD LAB BLOOD ORDERABLES Fin al Result Performing Organization Address [facility] Phone Number CDR HISTORICAL RESULTS * (ABNORMAL) Blood hemoglobin A1C (06/01/2016 7:03 AM PRINTING MACHINIST) Hgb A1C 7.2(H) 4.0 - 6.0 % CDR HISTORICAL RESULTS Estimated average glucose 160 mg/dl CDR HISTORIC AL RESULTS Comment: The ADA recommends reporting an estimated Average Glucose (eAG) with all Hemoglobin A1c results using the equation derived from a study of 507 normal and diabetic adults. ??Minority populations were underrepresented and children were not included. ??(Diabetes Care 31:0083-8869, 2008). ??The eAG is not equivalent to a fasting glucose. Blood specimen (specimen) 06/01/2016 7:03 AM PRINTING MACHINIST Joel Norris MD LAB BLOOD ORDERABLES Fin al Result Performing Organization Address [place]/[facility] de Phone Number CDR HISTORICAL RESULTS * (ABNORMAL) Plasma hepatic function panel (06/01/2016 7:03 AM PRINTING MACHINIST) AST 36 10 - 50 Units/L CDR [...] CDR HISTORICAL RESULTS Plasma 06/01/2016 7:03 AM PRINTING MACHINIST Joel Norris MD LAB BLOOD ORDERABLES Fin al Result Performing Organization Address [facility] de Phone Number CDR HISTORICAL RESULTS * Plasma partial thromboplastin time (PTT) (06/01/2016 7:03 AM PRINTING MACHINIST) Pathologist [facility] [place] APTT 31.4 25.0 - 37.0 seconds CDR HISTORICAL RESULTS Comment: Interpretive Data Therapeutic heparin range:60.0 - 94.0 sec based on correlation with therapeutic heparin activity range of 0.3 -0.7 Units/mL. Current interpretive data was last revised on 2011. Plasma 06/01/2016 7:03 AM PRINTING MACHINIST Joel Norris MD LAB BLOOD ORDERABLES Fin al Result Performing Organization Address [facility] de Phone Number CDR HISTORICAL RESULTS * Plasma basic metabolic panel (06/01/2016 7:03 AM PRINTING MACHINIST) Sodium 141 135 - 145 mmol/L CDR [...] CDR HISTORICAL RESULTS Plasma 06/01/2016 7:03 AM PRINTING MACHINIST Joel Norris MD LAB BLOOD ORDERABLES Fin al Result Performing Organization Address [facility] de Phone Number CDR HISTORICAL RESULTS * Plasma phosphorus (06/01/2016 7:03 AM PRINTING MACHINIST) Phosphorus, pl 3.6 2.3 - 4.5 mg/dl CDR HISTORICAL RESULTS Plasma 06/01/2016 7:03 AM PRINTING MACHINIST Joel Norris MD LAB BLOOD ORDERABLES Fin al Result Performing Organization Address [facility] de Phone Number CDR HISTORICAL RESULTS * Plasma prothrombin time (PT) (06/01/2016 7:03 AM PRINTING MACHINIST) Prothrombin time (PT) 13.2 9.2 - 14.0 [...] the Tool Book at http://[email or web address]/bjc/pharmacy.nsf Current Interpretive Data was last revised 2011. Plasma 06/01/2016 7:03 AM PRINTING MACHINIST Joel Norris MD LAB BLOOD ORDERABLES Fin al Result Performing Organization Address [facility] de Phone Number CDR HISTORICAL RESULTS * Serum magnesium (06/01/2016 7:03 AM PRINTING MACHINIST) Magnesium 2.0 1.4 - 2.5 mg/dl CDR HISTORICAL RESULTS Serum 06/01/2016 7:03 AM PRINTING MACHINIST Jeol Norris MD LAB BLOOD ORDERABLES Fin al Result Performing Organization Address [facility] de Phone Number CDR HISTORICAL RESULTS * (ABNORMAL) Blood cell count (CBC) (06/01/2016 7:03 AM PRINTING MACHINIST) WBC 4.3 3.8 - 9.9 K/cumm CDR [...] RESULTS Blood specimen (specimen) 06/01/2016 7:03 AM PRINTING MACHINIST Joel Norris MD LAB BLOOD ORDERABLES Fin al Result Performing Organization Address [facility] de Phone Number CDR HISTORICAL RESULTS * Blood ABO, Rh, indirect ab screen (06/01/2016 7:03 AM PRINTING MACHINIST) ABO, Rho(D) A Positive CDR HIS TORICAL RESULTS Steve, indirect Negative CDR HISTORICAL RESULTS Blood specimen (specimen) 06/01/2016 7:03 AM PRINTING MACHINIST Joel Norris MD LAB BLOOD ORDERABLES Fin al Result Performing Organization Address [facility] Co de Phone Number CDR HISTORICAL RESULTS * (ABNORMAL) Blood cell morphologic exam (06/01/2016 7:03 AM PRINTING MACHINIST) Neutrophils 67.1 % CDR HIST ORICAL RESULTS [...] RESULTS Blood specimen (specimen) 06/01/2016 7:03 AM PRINTING MACHINIST Joel Norris MD LAB BLOOD ORDERABLES Fin al Result Performing Organization Address [facility] de Phone Number CDR HISTORICAL RESULTS * Blood glucose, POC (06/01/2016 5:28 AM PRINTING MACHINIST) Glucose, POC, bld 121 70 - 199 mg/dl CDR HISTORICAL RESULTS Blood specimen (specimen) 06/01/2016 5:28 AM PRINTING MACHINIST Edmond Castaneda MD LAB BLOOD ORDERABLES Anastasiya l Result Performing Organization Address City/[facility]/ZIP Co de Phone Number CDR HISTORICAL RESULTS [...] of stomach and duodenum Duodenitis without bleeding penitentiary current use of insulin (CMS/HCC) (HCC) Anxiety [...]
--- OUTSIDE RECORDS SUMMARY | 2024-05-08 07:39 | XMS_ITS | Encounter Summary ---
Author Organization [facility] Facility Care Team Providers Care Residential Lawn Specialist Name Role Phone Unavailable Primary Care Provider Unavailabl e Encounter Details Date Type Department Care Team (Late st Contact Info) Description 06/03/2016 8:00 AM DATA CONVERSION DEVELOPER - 06/03/2016 11:59 PM DATA CONVERSION DEVELOPER Hospital Encounter [facility] Gregg Haines MD [address] [facility] [address] [place] [id number] Social History Tobacco Use Types Packs/Day Years Used Date Smoking Tobacco: Never Assessed Sex and Gender Information Value Date Recorded Sex Assigned at Not on file Legal Sex Male 2:52 PM DATA CONVERSION DEVELOPER Gender Identity Male 10/29/2020 12:37 PM [...]
--- OUTSIDE RECORDS SUMMARY | 2024-05-08 07:39 | XMS_ITS | Encounter Summary ---
Author Organization [facility] Healthcare Address [address] [place] [address] Care Team Providers Care Scudding Inspector Name Role Phone No, Physician Primary Care Provider [phone] Encounter Details Date Type Department Care Team (Latest Contact Info) Description 10/21/2016 1:18 PM CDT - 10/21/2016 11:59 PM CDT Hospital Encounter [facility] OP INTERIM [phone] Samaria Ellis MD [address] [facility] [address] [place] [id number] Discharge Disposition: Discharge to home or self care Social History Tobacco Use Types Packs/Day Years Used Date Smoking Tobacco: Never Assessed Sex and Gender Information Value Date Recorded Sex Assigned at Not on file Legal Sex Male 2:52 PM BEE TENDER Gender Identity Male 10/29/2020 12:37 PM [...] M.D. FINAL REPORT ACC# ??Date Time ??Exam [id number] Oct 21, 2016 14:03:00 [id number] Abd Orgn Duplex EXAMINATION: ?LIVER DOPPLER - [...] RAMIREZ M.D. on Oct 21 2016 ??2:16P [id number] RAMIREZ M.D. FINAL REPORT Attending: ??JENS, ??SAMARIA Requesting: ??JENS, ??SAMARIA Requesting Fax: ?? Attending Fax: ?? Attending ID: ??[id number] Requesting ID: ??[id number] Report To 1 ID: ??[id number] ? Report To 1 Name: ??, ?? Report To 1 FAX: ?? NextGen Order #: ?? Procedure Note Miscellaneous, Not In File - 02/18/2017 KIERAN RAMIREZ M.D. FINAL REPORT ACC# Date Time Exam [id number] Oct 21, 2016 14:03:00 08502 Abd Orgn Duplex EXAMINATION: LIVER DOPPLER - [...] RAMIREZ M.D. on Oct 21 2016 2:16P [id number] RAMIREZ M.D. FINAL REPORT Attending: SAMARIA ELLIS Requesting: SAMARIA ELLIS Requesting Fax: Attending Fax: Attending ID: [id number] Requesting ID: [id number] Report To 1 ID: [id number] Report To 1 Name: , Report To 1 FAX: NextGen Order #: Samaria Ellis MD CV VASCULAR PROCEDURES Edited Result - Final documented in this encounter Visit Diagnoses Not on filedocumented in this encounter Care Teams Scudding Inspector Relationship Specialty Start Date End Date No, Physician PCP - General 09/16/16 11/05/16 documented as of this encounter
--- OUTSIDE RECORDS SUMMARY | 2024-05-08 07:39 | XMS_ITS | Encounter Summary ---
Author Organization [facility] Healthcare Address [address] [place] [address] Care Team Providers Care Rocket Engine Component Mechanic Name Role Phone Unavailable Primary Care Provider Unavailabl e Encounter Details Date Type Department Care Team (Latest Contact Info) Description 08/04/2016 11:32 AM CDT - 08/04/2016 11:59 PM CDT Hospital Encounter [facility] [phone] Kathryn Ellis MD [address] [facility] [address] [place] [id number] Discharge Disposition: Discharge to home or self care Social History Tobacco Use Types Packs/Day Years Used Date Smoking Tobacco: Never Assessed Sex and Gender Information Value Date Recorded Sex Assigned at Not on file Legal Sex Male 2:52 PM SPOOLER RUBBER STRAND Gender Identity Male 10/29/2020 12:37 PM CDT [...] Routine Gen Lab 08/04/2016 11:44 AM CDT [id number], TUMOR MARKER Routine Gen Lab 08/04/2016 11:44 AM CDT COMPREHENSIVE METABOLIC PANEL Routine Gen Lab 08/04/2016 11:44 AM CDT documented in this encounter Results * aPTT (08/04/2016 11:52 AM CDT) aPTT 30.0 25.0 - 37.0 sec [facility] Comment: Interpretive Data Therapeutic heparin range:60.0 - 94.0 sec based on correlation with therapeutic heparin activity range of 0.3 -0.7 Units/mL. Current interpretive data was last revised on 2011. Blood specimen (specimen) 08/04/2016 11:52 AM CDT 08/04/2016 12:37 PM CDT Kathryn Ellis MD LAB BLOOD ORDERABLES Fi nal Result Performing Organization Address City/[facility]/ZIP Co de Phone Number [facility] [place] [address] * Protime-INR (08/04/2016 11:52 AM CDT) Pathologist [facility] PT 12.6 9.2 - 14.0 sec [facility] INR 1.10 0.81 - 1.22 [facility] Comment: Interpretive Data Inpatient therapeutic ranges* Atrial fibrillation ?2.0-3.0 INR Venous thrombo-embolism ?2.0-3.0 INR Bioprosthetic heart valve ?* Mechanical heart valve, bileaflet or tilting disk,aortic position ? 2.0-3.0 INR All other,or bileaflet or tilting disk, in mitral position ? 2.5-3.5 INR *See the pharmacy resource directory (PHRED) for an updated copy of the Tool Book at [email or web address] Current Interpretive Data was last revised 2011. Blood specimen (specimen) 08/04/2016 11:52 AM CDT 08/04/2016 12:37 PM CDT us Kathryn Ellis MD LAB BLOOD ORDERABLES Fi nal Result Performing Organization Address [facility] Co de Phone Number [facility] [place] [address] * [id number], Tumor Marker (08/04/2016 11:44 AM CDT) [facility] alpha Fetoprotein 2.8 0.0 - 8.3 ng/mL [facility] Blood specimen (specimen) 08/04/2016 11:44 AM CDT 08/04/2016 12:54 PM CDT Kathryn Ellis MD LAB BLOOD ORDERABLES Fi nal Result [facility] Department [place] [address] * (ABNORMAL) Comprehensive metabolic panel (08/04/2016 11:44 AM CDT) Pathologist [facility] Sodium 139 135 - 145 mmol/L [facility] Potassium, pl 3.7 3.3 - 4.9 mmol/L [facility] CO2 26 22 - 32 mmol/L [facility] BUN 12 8 - 25 mg/dL [facility] Glucose 175 70 - 199 mg/dL [facility] Creatinine 0.74(L) 0.80 - 1.30 mg/dL [facility] Calcium 9.2 8.5 - 10.3 mg/dL [facility] Chloride 103 97 - 110 mmol/L [facility] Comment:fixed result mapping Albumin 4.0 3.5 - 5.0 g/dL [facility] AST 43 10 - 50 Units/L [facility] ALT 42 7 - 55 Units/L [facility] Alk phos 91 40 - 130 Units/L [facility] Bilirubin, total 1.4(H) 0.1 - 1.2 mg/dL [facility] Protein, pl 7.4 6.5 - 8.5 g/dL [facility] Anion gap 10 2 - 15 mmol/L [facility] Blood specimen (specimen) 08/04/2016 11:44 AM CDT 08/04/2016 12:54 PM CDT Kathryn Ellis MD LAB BLOOD ORDERABLES Fi nal Result [facility] Department [place] [address] * Differential, auto (08/04/2016 11:44 AM CDT) Pathologist [facility] Neutrophil pct 63.6 % [facility] Imm gran pct 0.7 % [facility] Lymphocyte pct 21.1 % [facility] Monocyte pct 11.3 % [facility] Eosinophil pct 2.4 % [facility] Basophil pct 0.9 % [facility] Neutrophil abs 2.93 1.70 - 6.50 K/cumm [facility] Imm gran abs 0.03 0.00 - 0.10 K/cumm [facility] Lymphocyte abs 0.97 0.80 - 3.30 K/cumm [facility] Monocyte abs 0.52 0.20 - 0.80 K/cumm [facility] Eosinophil abs 0.11 0.00 - 0.50 K/cumm [facility] Basophil abs 0.04 0.00 - 0.10 K/cumm [facility] Blood specimen (specimen) 08/04/2016 11:44 AM CDT 08/04/2016 12:55 PM CDT us Kathryn Ellis MD LAB BLOOD ORDERABLES Fi nal Result [facility] [place] [address] * (ABNORMAL) CBC with auto differential (08/04/2016 11:44 AM CDT) [facility] WBC 4.60 3.80 - 9.90 K/cumm [facility] RBC 4.98 4.30 - 5.80 M/cumm [facility] Hgb 14.1 13.0 - 17.5 g/dL [facility] Hct 40.2 38.9 - 50.3 % [facility] MCV 80.7(L) 81.3 - 96.4 fL [facility] MCH 28.3 27.1 - 33.3 pg [facility] MCHC 35.1 32.3 - 35.7 g/dL [facility] RDW CV 15.7(H) 11.1 - 14.9 % [facility] RDW SD 44.6 35.7 - 48.1 fL [facility] Plt 96(L) 150 - 400 K/cumm [facility] MPV 10.3 9.1 - 12.3 fL [facility] NRBC 0.0 0.0 - 0.2 % [facility] NRBC abs 0.00 0.00 - 0.01 K/cumm [facility] Blood specimen (specimen) 08/04/2016 11:44 AM CDT 08/04/2016 12:55 PM CDT us Kathryn Ellis MD LAB BLOOD ORDERABLES Fi nal Result [facility] [place] [address] documented in this encounter Visit Diagnoses Not on filedocumented in this encounter
--- OUTSIDE RECORDS SUMMARY | 2024-05-08 07:39 | XMS_ITS | Encounter Summary ---
Author Organization [facility] Facility Care Team Providers Care Senior Human Resources Representative Name Role Phone Unavailable Primary Care Provider Unavailabl e Encounter Details Date Type Department Care Team (Late st Contact Info) Description 06/03/2016 10:30 AM POWER SHOVEL OPERATOR - 06/03/2016 11:59 PM [facility] Hospital Encounter [facility] Kathryn Yang MD [address] [address] Social History Tobacco Use Types Packs/Day Years Used Date Smoking Tobacco: Never Assessed Sex and Gender Information Value Date Recorded Sex Assigned at Not on file Legal Sex Male 2:52 PM POWER SHOVEL OPERATOR Gender Identity Male 10/29/2020 12:37 PM [...]
--- OUTSIDE RECORDS SUMMARY | 2024-05-08 07:40 | XMS_ITS | Encounter Summary ---
Author Organization [facility] Facility Care Team Providers Care Director Custom Name Role Phone Unavailable Primary Care Provider Unavailabl e Encounter Details Date Type Department Care Team (Late st Contact Info) Description 04/16/2016 8:00 AM WHITE METAL CORROSION PROOFER - 04/16/2016 11:59 PM [facility] Hospital Encounter [facility] Kory Woodard MD [address] [facility] [address] [place] [address] Social History Tobacco Use Types Packs/Day Years Used Date Smoking Tobacco: Never Assessed Sex and Gender Information Value Date Recorded Sex Assigned at Not on file Legal Sex Male 2:52 PM WHITE METAL CORROSION PROOFER Gender Identity Male 10/29/2020 12:37 PM CDT [...]
--- OUTSIDE RECORDS SUMMARY | 2024-05-08 07:40 | XMS_ITS | Encounter Summary ---
Author Organization [facility] Facility Care Team Providers Care Criminal Justice Social Worker Name Role Phone Unavailable Primary Care Provider Unavailabl e Encounter Details Date Type Department Care Team (Late st Contact Info) Description 12/20/2015 5:19 PM CDT - 12/20/2015 5:57 PM CDT Hospital Encounter [facility] Nabil Flores MD [address] [facility] [place] [address] Encounter for issue of repeat prescription Social History Tobacco Use Types Packs/Day Years Used Date Smoking Tobacco: Never Assessed Sex and Gender Information Value Date Recorded Sex Assigned at Not on file Legal Sex Male 2:52 PM RETOUCHER PHOTOENGRAVING Gender Identity Male 10/29/2020 12:37 PM CDT [...]
--- OUTSIDE RECORDS SUMMARY | 2024-05-08 07:40 | XMS_ITS | Encounter Summary ---
Author Organization [facility] Facility Care Team Providers Care General Maintenance Mechanic Name Role Phone Unavailable Primary Care Provider Unavailabl e Encounter Details Date Type Department Care Team (Late st Contact Info) Description 02/15/2016 8:45 AM CDT - 02/15/2016 11:59 PM CDT Hospital Encounter [facility] Nilton Boone MD [address] [facility] [address] [place] [address] Social History Tobacco Use Types Packs/Day Years Used Date Smoking Tobacco: Never Assessed Sex and Gender Information Value Date Recorded Sex Assigned at Not on file 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
--- OUTSIDE RECORDS SUMMARY | 2024-05-08 07:40 | XMS_ITS | Encounter Summary ---
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
--- OUTSIDE RECORDS SUMMARY | 2024-05-08 07:40 | XMS_ITS | Encounter Summary ---
Author Organization [facility] Facility Care Team Providers Care Tower Cleaner Name Role Phone Unavailable Primary Care Provider Unavailabl e Encounter Details Date Type Department Care Team (Late st Contact Info) Description 12/24/2015 8:17 AM CDT - 12/24/2015 11:59 PM CDT Hospital Encounter [facility] Kathryn Yang MD [address] [address] Cirrhosis of liver (CMS/HCC) Social History Tobacco Use Types Packs/Day Years Used Date Smoking Tobacco: Never Assessed Sex and Gender Information Value Date Recorded Sex Assigned at Not on file 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
--- OUTSIDE RECORDS SUMMARY | 2024-05-08 07:40 | XMS_ITS | Encounter Summary ---
Author Organization 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 Dictating: Kisha Quezada M.D. ADMISSION HISTORY AND PHYSICAL Date of Service: 11/07/2015 Admitting Diagnoses: 1. Hematemesis. 2. Esophageal varices. 3. Nonalcoholic steatohepatitis (BLAND) cirrhosis. 4. Diabetes. Chief Complaint: Hematemesis. History of Present Illness: This is a 45-year-old male with a history of BLAND cirrhosis, complicated by esophageal varices, status post recent banding, who presented to [facility] ER with complaints of hematemesis. The [...] ER. There was attempt to transfer to [place] but, because of reports of hematemesis, it was requested he go to an ICU as opposed to the regular floor; however, the patient was not sick enough for the ICU, and so therefore was not accepted by the ICU. As a result, he ended up being transferred to [facility], where he underwent EGD on November [...] the fact that he did require restraint jail through and recommended he go to the [...] rash that sounded like hives. Medications: 1. [place] 5/325 mg 2 tablets twice a day [...] does not drink alcohol. He has a 83-allz-wcjd smoking history, but quit 13 years ago. [...] aggressive hematemesis. We will continue lactulose and [place] for the patient's chronic abdominal pain from his cirrhosis. 3. Diabetes. Hold metformin. Continue extra low-dose insulin sliding scale. 4. FEN/prophylaxis: The patient will be n.p.o. after midnight. No subcutaneous heparin for DVT prophylaxis, as the patient ambulates. 5. HE IS FULL CODE. Electronically Authenticated and Edited by: Kisha Quezada M.D. On 11/09/2015 12:56 AM CDT Kisha Quezaad M.D. CLA:lizzie #[id number] Editing MT: TD: 11/08/2015 02:35 AM cc: [...] agrees with it. ACC# ??Date Time ??Exam [id number] Dec 24, 2015 09:38:00 [id number] Abd Orgn Duplex EXAMINATION: ?LIVER DOPPLER - [...] RAMIREZ M.D. on Dec 24 2015 ??3:46P [id number] Procedure Note Provider, MD Tyler - 08/24/2016 KIERAN RAMIREZ M.D. NILAY CHISHOLM M.D. FINAL REPORT The radiology attending physician has personally reviewed this study, and has reviewed and/or edited this written report and agrees with it. ACC# Date Time Exam [id number] Dec 24, 2015 09:38:00 32797 Abd Orgn Duplex EXAMINATION: LIVER DOPPLER - [...] RAMIREZ M.D. on Dec 24 2015 3:46P [id number] Historical Provider CV VASCULAR PROCEDURES Fi nal [...] agrees with it. ACC# ??Date Time ??Exam [id number] Nov 23, 2015 12:28:00 41945 Chest 2 views Front&Lat EXAMINATION: ?? Chest [...] OKEEFE M.D. on Nov 23 2015 ??3:11P [id number] Procedure Note Provider, MD Tyler - 08/24/2016 KORY OKEEFE M.D. JOSE D ALFONSO M.D. FINAL REPORT The radiology attending physician has personally reviewed this study, and has reviewed and/or edited this written report and agrees with it. ACC# Date Time Exam [id number] Nov 23, 2015 12:28:00 19310 Chest 2 views Front&Lat EXAMINATION: Chest two [...] OKEEFE M.D. on Nov 23 2015 3:11P [id number] Result [facility] Provider IMG XR PROCEDURES Final R esult * DISCHARGE LABORATORY CUMULATIVE REPORT (11/23/2015) Narrative 11/23/2015 Ordered by an unspecified provider. Historical Provider LAB BLOOD ORDERABLES Anastasiya l Result * ELECTROCARDIOGRAPHY (ECG) (11/23/2015) Narrative 11/23/2015 Ordered by an unspecified provider. [facility] Provider ECG ORDERABLES Final Res [...] agrees with it. ACC# ??Date Time ??Exam [id number] Nov 22, 2015 12:44:00 58028 TIPS -initial [id number] Nov 22, 2015 12:44:00 49723 USguide Chavo Acc R [id number] Nov 22, 2015 12:44:00 97151 USguide Chavo Acc R ACC# ??Date Time ??Exam [id number] Nov 22, 2015 12:44:00 08397 TIPS -initial [id number] Nov 22, 2015 12:44:00 25098 USguide Chavo Acc R [id number] Nov 22, 2015 12:44:00 05631 USguide Chavo Acc R EXAMINATION: ?TRANSJUGULAR INTRAHEPATIC PORTOSYSTEMIC SHUNT PLACEMENT PROCEDURE: 1. ??US guided access of the right internal jugular vein and right common femoral vein 2. ??Transjugular intrasystemic portosystemic shunt creation (TIPS) using intravascular ultrasound 3. ??Stent deployment into the newly created shunt ([place] Viatorr TIPS Endoprothesis 10 mm x 8 [...] was obtained. Prior to beginning the procedure, [place] Protocol was performed to confirm the patient's [...] centrally followed by placement of a 10 icelandic vascular sheath. Using fluoroscopic guidance, a Lev catheter was advanced into the middle hepatic vein. The skin over the right femoral vein access site was infiltrated with 1% lidocaine. The vein was accessed using real-time ultrasound guidance. A wire was advanced centrally followed by placement of a 10 icelandic vascular sheath. Using fluoroscopic guidance, a curated.by intravascular ultrasound was advanced into the hepatic [...] CHEW M.D. on Nov 23 2015 ??9:04A [id number] Procedure Note Provider, MD Tyler - 08/24/2016 NIEVES CHEW M.D. DUNG WILSON MD FINAL REPORT The radiology attending physician has personally reviewed this study, and has reviewed and/or edited this written report and agrees with it. ACC# Date Time Exam [id number] Nov 22, 2015 12:44:00 11265 TIPS -initial [id number] Nov 22, 2015 12:44:00 59507 USguide Chavo Acc R [id number] Nov 22, 2015 12:44:00 74733 USguide Chavo Acc R ACC# Date Time Exam [id number] Nov 22, 2015 12:44:00 03467 TIPS -initial [id number] Nov 22, 2015 12:44:00 24384 USguide Chavo Acc R [id number] Nov 22, 2015 12:44:00 08632 USguide Chavo Acc R EXAMINATION: TRANSJUGULAR INTRAHEPATIC PORTOSYSTEMIC SHUNT PLACEMENT PROCEDURE: 1. US guided access of the right internal jugular vein and right common femoral vein 2. Transjugular intrasystemic portosystemic shunt creation (TIPS) using intravascular ultrasound 3. Stent deployment into the newly created shunt ([place] Viatorr TIPS Endoprothesis 10 mm x 8 [...] was obtained. Prior to beginning the procedure, [place] Protocol was performed to confirm the patient's [...] centrally followed by placement of a 10 icelandic vascular sheath. Using fluoroscopic guidance, a Lev catheter was advanced into the middle hepatic vein. The skin over the right femoral vein access site was infiltrated with 1% lidocaine. The vein was accessed using real-time ultrasound guidance. A wire was advanced centrally followed by placement of a 10 icelandic vascular sheath. Using fluoroscopic guidance, a curated.by intravascular ultrasound was advanced into the hepatic [...] CHEW M.D. on Nov 23 2015 9:04A [id number] us Historical Provider MD PATEL IR PROCEDURES [...] agrees with it. ACC# ??Date Time ??Exam [id number] Nov 22, 2015 12:44:00 95647 TIPS -initial [id number] Nov 22, 2015 12:44:00 17674 USguide Chavo Acc R [id number] Nov 22, 2015 12:44:00 67097 USguide Chavo Acc R ACC# ??Date Time ??Exam [id number] Nov 22, 2015 12:44:00 65224 TIPS -initial [id number] Nov 22, 2015 12:44:00 37560 USguide Chavo Acc R [id number] Nov 22, 2015 12:44:00 89823 USguide Chavo Acc R EXAMINATION: ?TRANSJUGULAR INTRAHEPATIC PORTOSYSTEMIC SHUNT PLACEMENT PROCEDURE: 1. ??US guided access of the right internal jugular vein and right common femoral vein 2. ??Transjugular intrasystemic portosystemic shunt creation (TIPS) using intravascular ultrasound 3. ??Stent deployment into the newly created shunt ([place] Viatorr TIPS Endoprothesis 10 mm x 8 [...] was obtained. Prior to beginning the procedure, [place] Protocol was performed to confirm the patient's [...] centrally followed by placement of a 10 icelandic vascular sheath. Using fluoroscopic guidance, a Lev catheter was advanced into the middle hepatic vein. The skin over the right femoral vein access site was infiltrated with 1% lidocaine. The vein was accessed using real-time ultrasound guidance. A wire was advanced centrally followed by placement of a 10 icelandic vascular sheath. Using fluoroscopic guidance, a curated.by intravascular ultrasound was advanced into the hepatic [...] CHEW M.D. on Nov 23 2015 ??9:04A [id number] Procedure Note Provider, MD Tyler - 08/24/2016 Amber CHAVEZ MD FINAL REPORT The radiology attending physician has personally reviewed this study, and has reviewed and/or edited this written report and agrees with it. ACC# Date Time Exam [id number] Nov 22, 2015 12:44:00 43966 TIPS -initial [id number] Nov 22, 2015 12:44:00 37237 USguide Chavo Acc R [id number] Nov 22, 2015 12:44:00 52527 USguide Chavo Acc R ACC# Date Time Exam [id number] Nov 22, 2015 12:44:00 65648 TIPS -initial [id number] Nov 22, 2015 12:44:00 57350 USguide Chavo Acc R [id number] Nov 22, 2015 12:44:00 37635 [facility] R EXAMINATION: TRANSJUGULAR INTRAHEPATIC PORTOSYSTEMIC SHUNT PLACEMENT PROCEDURE: 1. US guided access of the right internal jugular vein and right common femoral vein 2. Transjugular intrasystemic portosystemic shunt creation (TIPS) using intravascular ultrasound 3. Stent deployment into the newly created shunt ([place] Viatorr TIPS Endoprothesis 10 mm x 8 [...] was obtained. Prior to beginning the procedure, [place] Protocol was performed to confirm the patient's [...] centrally followed by placement of a 10 icelandic vascular sheath. Using fluoroscopic guidance, a Lev catheter was advanced into the middle hepatic vein. The skin over the right femoral vein access site was infiltrated with 1% lidocaine. The vein was accessed using real-time ultrasound guidance. A wire was advanced centrally followed by placement of a 10 icelandic vascular sheath. Using fluoroscopic guidance, a curated.by intravascular ultrasound was advanced into the hepatic [...] Requested By: CORAZON RIOJAS M.D. Dictated By: DNUG WILSON MD on Nov 22 2015 5:42P This document has been electronically signed by: NIEVES CHEW M.D. on Nov 23 2015 9:04A [id number] us Historical Provider MD PATEL US PROCEDURES [...] agrees with it. ACC# ??Date Time ??Exam [id number] Nov 22, 2015 12:44:00 35472 TIPS -initial [id number] Nov 22, 2015 12:44:00 63788 USguide Chavo Acc R [id number] Nov 22, 2015 12:44:00 68950 USguide Chavo Acc R ACC# ??Date Time ??Exam [id number] Nov 22, 2015 12:44:00 62320 TIPS -initial [id number] Nov 22, 2015 12:44:00 09031 USguide Chavo Acc R [id number] Nov 22, 2015 12:44:00 37949 USguide Chavo Acc R EXAMINATION: ?TRANSJUGULAR INTRAHEPATIC PORTOSYSTEMIC SHUNT PLACEMENT PROCEDURE: 1. ??US guided access of the right internal jugular vein and right common femoral vein 2. ??Transjugular intrasystemic portosystemic shunt creation (TIPS) using intravascular ultrasound 3. ??Stent deployment into the newly created shunt ([place] Viatorr TIPS Endoprothesis 10 mm x 8 [...] was obtained. Prior to beginning the procedure, [place] Protocol was performed to confirm the patient's [...] centrally followed by placement of a 10 icelandic vascular sheath. Using fluoroscopic guidance, a Lev catheter was advanced into the middle hepatic vein. The skin over the right femoral vein access site was infiltrated with 1% lidocaine. The vein was accessed using real-time ultrasound guidance. A wire was advanced centrally followed by placement of a 10 icelandic vascular sheath. Using fluoroscopic guidance, a curated.by intravascular ultrasound was advanced into the hepatic [...] CHEW M.D. on Nov 23 2015 ??9:04A [id number] Procedure Note Provider, MD Tyler - 08/24/2016 NIEVES CHEW M.D. DUNG WILSON MD FINAL REPORT The radiology attending physician has personally reviewed this study, and has reviewed and/or edited this written report and agrees with it. ACC# Date Time Exam [id number] Nov 22, 2015 12:44:00 78983 TIPS -initial [id number] Nov 22, 2015 12:44:00 77375 USguide Chavo Acc R [id number] Nov 22, 2015 12:44:00 99019 USguide Chavo Acc R ACC# Date Time Exam [id number] Nov 22, 2015 12:44:00 95794 TIPS -initial [id number] Nov 22, 2015 12:44:00 11841 USguide Chavo Acc R [id number] Nov 22, 2015 12:44:00 99391 USguide Chavo Acc R EXAMINATION: TRANSJUGULAR INTRAHEPATIC PORTOSYSTEMIC SHUNT PLACEMENT PROCEDURE: 1. US guided access of the right internal jugular vein and right common femoral vein 2. Transjugular intrasystemic portosystemic shunt creation (TIPS) using intravascular ultrasound 3. Stent deployment into the newly created shunt ([place] Viatorr TIPS Endoprothesis 10 mm x 8 [...] was obtained. Prior to beginning the procedure, [place] Protocol was performed to confirm the patient's [...] centrally followed by placement of a 10 icelandic vascular sheath. Using fluoroscopic guidance, a Lev catheter was advanced into the middle hepatic vein. The skin over the right femoral vein access site was infiltrated with 1% lidocaine. The vein was accessed using real-time ultrasound guidance. A wire was advanced centrally followed by placement of a 10 icelandic vascular sheath. Using fluoroscopic guidance, a curated.by intravascular ultrasound was advanced into the hepatic [...] CHEW M.D. on Nov 23 2015 9:04A [id number] us Historical Provider MD PATEL US PROCEDURES Final R esult * All Microbiology Report Section (11/20/2015 12:00 AM CDT) 11/20/2015 Narrative CDR HISTORICAL RESULTS - 11/25/2015 6:28 AM CDT ? [facility] ?[address] [facility] [address] ?[place], [place] [address] ? Patient Name: ??CAMILO CURRY ? Med Rec Number: [id number] ? Fin Number: ?[id number] ? Date: ?1970 ? Sex/Age: ? Male 45 years ? Admit Date: ?11/18/2015 ? Discharge Date: 11/23/2015 ? Doctor: ?Jannet Lockwood ? Facility: ?[facility] ? Location: ?0101 [address] 02 ?* Abnormal ??A Alert ??f Footnote [...] ??Interpretive Results ??* * * ? (1)The Vdopia (formerly known as PaperV) ? FilmArray Respiratory Panel (RP) assay is [...] FilmArray RP assay is FDA cleared for GRAPHIC ARTS INSTRUCTOR ? swabs. ??Additional sample types have been validated according to ? CLIA regulations. ??The performance characteristics of this assay ? have been determined by [facility] ? Lab.Current interpretive data was [...] agrees with it. ACC# ??Date Time ??Exam [id number] Nov 19, 2015 09:39:00 32159 Chest 1 view Frontal EXAMINATION: ?? Chest one view IMPRESSION: ?? Comparison study from [facility] is dated 11/03/2015. Small lung volumes. Mild left basilar and minimal right basilar atelectasis. No pneumothorax or pleural effusion. No focal consolidation. The cardiomediastinal silhouette is stable. Requested By: Dictated By: ?? MAYRA CALEL M.D. ??on Nov 19 2015 10:51A This document has been electronically signed by: LAI BRITO M.D. on Nov 19 2015 11:27A [id number] Procedure Note Provider, Historical, - 04/23/2017 LAI BRITO M.D. MAYRA CALLE M.D. FINAL REPORT The radiology attending physician has personally reviewed this study, and has reviewed and/or edited this written report and agrees with it. ACC# Date Time Exam [id number] Nov 19, 2015 09:39:00 41331 Chest 1 view Frontal EXAMINATION: Chest one view IMPRESSION: Comparison study from [facility] is dated 11/03/2015. Small lung volumes. Mild left basilar and minimal right basilar atelectasis. No pneumothorax or pleural effusion. No focal consolidation. The cardiomediastinal silhouette is stable. Requested By: Dictated By: MAYRA CALLE M.D. on Nov 19 2015 10:51A This document has been electronically signed by: LAI BRITO M.D. on Nov 19 2015 11:27A [id number] us Historical Provider IM[facility] XR PROCEDURES Final R esult * All Microbiology Report Section (11/19/2015 12:00 AM CDT) 11/19/2015 Narrative CDR HISTORICAL RESULTS - 11/25/2015 6:28 AM CDT ? [facility] ?[address] [facility] [address] ?[place], [place] [address] ? Patient Name: ??CAMILO CURRY ? Med Rec Number: [id number] ? [facility] Number: ?[id number] ? Date: ?1970 ? Sex/Age: ? Male 45 years ? Admit Date: ?11/18/2015 ? Discharge Date: 11/23/2015 ? Doctor: ?Svancarek , Jannet B ? Facility: ?[facility] ? Location: ?0101 [address] 02 ?* Abnormal ??A Alert ??f Footnote [...] identification may be ? performed using the FlipGive Nanosphere Gram Positive Blood ? Culture Assay. ??The Nanosphere assay detects microbial DNA in ? positive blood culture broth via hybridization of target DNA to ? capture oligonucleotides on a microarray. ??This assay has been ? cleared by the [place] Food and Drug Administration and ? its performance characteristics have been verified by the ? [facility].Current ? Interpretive Data was last revised on 2013. ? us Historical Provider MD LAB MICROBIOLOGY - GENERA L ORDERABLES Final Result CDR HISTORICAL RESULTS * All Microbiology Report Section (11/19/2015 12:00 AM CDT) 11/19/2015 Narrative CDR HISTORICAL RESULTS - 11/25/2015 6:28 AM CDT ? [facility] ?[address] [facility] [address] ?[facility] [address] ? Patient Name: ??CAMILO CURRY ? Med Rec Number: [id number] ? Fin Number: ?[id number] ? Date: ?1970 ? Sex/Age: ? Male 45 years ? Admit Date: ?11/18/2015 ? Discharge Date: 11/23/2015 ? Doctor: ?Jannet Lockwood B ? Facility: ?[facility] ? Location: ?0101 [address] 02 ?* Abnormal ??A Alert ??f Footnote [...] identification may be ? performed using the FlipGive Nanosphere Gram Positive Blood ? Culture Assay. ??The Nanosphere assay detects microbial DNA in ? positive blood culture broth via hybridization of target DNA to ? capture oligonucleotides on a microarray. ??This assay has been ? cleared by the [place] Food and Drug Administration and ? its performance characteristics have been verified by the ? [facility].Current ? Interpretive Data was last revised on 2013. ? us Historical Provider LAB MICROBIOLOGY - GENERA L ORDERABLES Final Result CDR HISTORICAL RESULTS * UPPER GASTROINTESTINAL ENDOSCOPY REPORT (11/19/2015) Anatomical Region Laterality Modality Other Narrative 11/19/2015 Ordered by an unspecified provider. Result [facility] Historical Provider GI PROCEDURE ORDERABLES F inal Result * ELECTROCARDIOGRAPHY (ECG) (11/19/2015) Narrative 11/19/2015 Ordered by an unspecified provider. Result [facility] Provider ECG ORDERABLES Final Res ult * Blood glucose, POC (11/09/2015 7:58 AM CDT) [facility] Glucose, POC, bld 117 70 - 199 mg/dl HISTORICAL RESULTS Blood specimen (specimen) 11/09/2015 7:58 AM CDT Result [facility] Kisha Quezada MD LAB BLOOD ORDERABLES Anastasiya l Result HISTORICAL RESULTS * DISCHARGE LABORATORY CUMULATIVE REPORT (11/09/2015) Narrative 11/09/2015 Ordered by an unspecified provider. Result [facility] Camilo RED LAB BLOOD ORDERABLES Anastasiya l Result * (ABNORMAL) Blood cell count (CBC) (11/08/2015 9:08 PM CDT) [facility] WBC 3.0(L) 3.8 - 9.9 K/cumm HISTORICAL [...] specimen (specimen) 11/08/2015 9:08 PM CDT Result [facility] Marian Ayala MD LAB BLOOD ORDERABLES [...] specimen (specimen) 11/08/2015 9:08 PM CDT Result [facility] Marian Ayala MD LAB BLOOD ORDERABLES Final R esult Performing Organization Address [facility] Co de Phone Number HISTORICAL RESULTS * Blood glucose, POC (11/08/2015 8:22 PM CDT) Glucose, POC, bld 187 70 - 199 mg/dl HISTORICAL RESULTS Blood specimen (specimen) 11/08/2015 8:22 PM CDT Result [facility] Kisha Quezada MD LAB BLOOD ORDERABLES Anastasiya l Result HISTORICAL RESULTS * Blood glucose, POC (11/08/2015 4:59 PM CDT) Glucose, POC, bld 113 70 - 199 mg/dl HISTORICAL RESULTS Blood specimen (specimen) 11/08/2015 4:59 PM CDT Kisha Quezada MD LAB BLOOD ORDERABLES Anastasiya l Result Performing Organization Address [facility] Co de Phone Number HISTORICAL RESULTS * Blood glucose, POC (11/08/2015 1:38 PM CDT) Glucose, POC, bld 109 70 - 199 mg/dl HISTORICAL RESULTS Blood specimen (specimen) 11/08/2015 1:38 PM CDT Kisha Quezada MD LAB BLOOD ORDERABLES Anastasiya l Result Performing Organization Address [facility] de Phone Number HISTORICAL RESULTS * (ABNORMAL) Plasma prothrombin time (PT) (11/08/2015 10:45 AM CDT) Pathologist [facility] Prothrombin time (PT) 14.0(H) 9.2 - 13.0 [...] updated copy of the Tool Book at [email or web address].nsf Current Interpretive Data was last revised 2011. Plasma 11/08/2015 10:4 5 AM CDT Marian Ayala MD LAB BLOOD ORDERABLES Final R formerly [facility] Performing Organization Address [facility] Co de Phone Number [...] ORDERABLES Final R ult Performing Organization Address City/State/[facility] Co de Phone Number [...] Blood glucose, POC (11/08/2015 7:56 AM CDT) [facility] Glucose, POC, bld 131 70 - 199 mg/dl HISTORICAL RESULTS Blood specimen (specimen) 11/08/2015 7:56 AM CDT Kisha Quezada MD LAB BLOOD ORDERABLES Anastasiya l Result Performing Organization Address City/[facility]/ZIP Co [...] agrees with it. ACC# ??Date Time ??Exam [id number] Nov 08, 2015 06:15:00 65445 Abdomen single view AP EXAMINATION: ?Abdomen single [...] FRIEDMAN M.D. on Nov 08 2015 10:38A [id number] Procedure Note Provider, Tyler, - 08/24/2016 BERNARDINO FRIEDMAN M.D. PAM FITZPATRICK M.D. FINAL REPORT The radiology attending physician has personally reviewed this study, and has reviewed and/or edited this written report and agrees with it. ACC# Date Time Exam [id number] Nov 08, 2015 06:15:00 73790 Abdomen single view AP EXAMINATION: Abdomen single [...] FRIEDMAN M.D. on Nov 08 2015 10:38A [id number] us Historical Provider IMG XR PROCEDURES Final [...] specimen (specimen) 11/08/2015 3:12 AM CDT Result [facility] Kisha Quezada MD LAB BLOOD ORDERABLES Anastasiya l Result Performing Organization Address City/[facility] Co de Phone Number HISTORICAL RESULTS * Blood glucose, POC (11/08/2015 12:06 AM CDT) Pathologist [facility] Glucose, POC, bld 94 70 - 199 mg/dl HISTORICAL RESULTS Blood specimen (specimen) 11/08/2015 12:06 AM CDT Result [facility] Kisha Quezada MD LAB BLOOD ORDERABLES Anastasiya l Result Performing Organization Address [facility] Co de Phone Number HISTORICAL RESULTS * UPPER GASTROINTESTINAL ENDOSCOPY REPORT (11/08/2015) Anatomical Region Laterality Modality Other Narrative 11/08/2015 Ordered by an unspecified provider. Result [facility] Historical Provider GI PROCEDURE ORDERABLES F inal Result * Blood check sample (11/07/2015 7:49 PM CDT) Pathologist [facility] ABO, Rho(D) A Positive HISTORI AGUILA RESULTS Blood specimen (specimen) 11/07/2015 7:49 PM CDT Historical Provider LAB BLOOD ORDERABLES Anastasyia l Result Performing Organization Address City/[facility] Co de Phone Number HISTORICAL RESULTS * Plasma hepatic function panel (11/07/2015 7:25 PM CDT) Pathologist [facility] Protein, pl 8.1 6.5 - 8.5 g/dl [...] ORDERABLES Final Res ult Performing Organization Address [facility] de Phone Number HISTORICAL RESULTS * [...] ORDERABLES Final Res ult Performing Organization Address [facility] de Phone Number HISTORICAL RESULTS * [...] ORDERABLES Final Res ult Performing Organization Address [facility] de Phone Number HISTORICAL RESULTS * Blood ABO, Rh, indirect ab screen (11/07/2015 7:25 PM CDT) ABO, Rho(D) A Positive HISTORI AGUILA RESULTS Steve, indirect Negative HISTORICAL RESULTS Blood specimen (specimen) 11/07/2015 7:25 PM CDT Mario Ren MD LAB BLOOD ORDERABLES Final Res ult Performing Organization Address [facility] de Phone Number HISTORICAL RESULTS * [...]
--- OUTSIDE RECORDS SUMMARY | 2024-05-08 07:40 | XMS_ITS | Encounter Summary ---
Author Organization [facility] Facility Care Team Providers Care Strategic Partnership Representative Name Role Phone Unavailable Primary Care Provider Unavailabl e Encounter Details Date Type Department Care Team (Late st Contact Info) Description 12/24/2015 9:00 AM CDT - 12/24/2015 11:59 PM CDT Hospital Encounter [facility] Kathryn Yang MD [address] [address] Social History Tobacco Use Types Packs/Day Years Used Date Smoking Tobacco: Never Assessed Sex and Gender Information Value Date Recorded Sex Assigned at Not on file 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
--- OUTSIDE RECORDS SUMMARY | 2024-05-08 07:40 | XMS_ITS | Encounter Summary ---
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 He has had 2 endoscopy procedures and [...] HISTORY AND PHYSICAL Patient: CAMILO CURRY Account: [id number] Room No: 522-02 : 1970 Patient Type: IP Attend.: Ankush Parada M.D. Admit Date: 11/02/2015 Dict.: Ankush Parada M.D. Disch. Date: PRIMARY CARE PHYSICIAN Sean Morfin MD ADMITTING SERVICE [facility] Service CHIEF COMPLAINT Hematemesis. HPI This [...] 11/04/2015 09:25 AM CDT [facility] M[facility] TD: 11/03/2015 12:41 CC: Sean Morfin MD documented in this encounter Consult Notes * Provider, MD Tyler - 11/03/2015 12:00 AM CDT CONSULTATION REPORT Patient: CAMILO CURRY Service Date: 11/03/2015 Account: [id number] Room No: 522-02 : 1970 Patient Type: [...] intensive care unit after transfer from an [facility]. The patient presented to the emergency department [...] The patient has been followed at the [facility] and also he has a history of [...] Patient: CAMILO CURRY Service Date: 11/03/2015 Account: [id number] Room No: 522-02 : 1970 Patient Type: IP Attend.: Ankush Parada M.D. Admit Date: 11/02/2015 Consult.: Familia Whitaker M.D. Disch. Date: 11/05/2015 GASTROENTEROLOGY CONSULTATION CONSULTING PHYSICIAN Familia Whitaker MD REFERRING PHYSICIAN Ankush Parada MD REASON FOR CONSULTATION Gastrointestinal bleeding. Mr. Curry is a 45-year-old white gentleman who was transferred to [facility] from another hospital because of concern for possible variceal bleeding. He is known to have a history of nonalcoholic fatty liver disease with cirrhosis and has seen the hearing care professional at [facility]. He actually had EGD with variceal band ligation in August or September of 2015. He reported seeing old blood on his pillow at home and there was concern that he may be bleeding from his upper GI tract. He called the retail store assistant who referred him to be admitted, but there were no intensive care unit beds at [facility] and the patient was transferred to [facility]. He has been in the intensive care [...] ORDERABLES Final Re sult Performing Organization Address [facility] Co de Phone Number [...] ORDERABLES Final Re sult Performing Organization Address [facility] Co de Phone Number HISTORICAL RESULTS * Plasma partial thromboplastin time (PTT) (11/05/2015 5:49 AM CDT) Pathologist [facility] APTT 31.2 25.0 - 37.0 seconds HISTORICAL RESULTS Plasma 11/05/2015 5:49 AM CDT Ankush Parada MD LAB BLOOD ORDERABLES Final Re sult Performing Organization Address [facility] Co de Phone Number [...] HISTORICAL RESULTS Comment: If this individual is -Bolivian, multiply result by 1.21 Repeated results of less than 60 is indicative of chronic kidney disease. MDRD formula has not been validated on individuals greater than 70 years old. Plasma 11/05/2015 5:49 AM CDT Result [facility] Ayana Jose MD LAB BLOOD ORDERABLES Final Resu lt Performing Organization Address [facility] Co de Phone Number HISTORICAL RESULTS * Blood glucose, POC (11/05/2015 3:17 AM CDT) Glucose, POC, bld 162 70 - 199 mg/dl HISTORICAL RESULTS Blood specimen (specimen) 11/05/2015 3:17 AM CDT Result [facility] Ankush Parada MD LAB BLOOD ORDERABLES Final Re sult Performing Organization Address [facility] Co de Phone Number HISTORICAL RESULTS * DISCHARGE LABORATORY CUMULATIVE REPORT (11/05/2015) Narrative 11/05/2015 Ordered by an unspecified provider. Result [facility] Historical Provider LAB BLOOD ORDERABLES Anastasiya l Result * UPPER GASTROINTESTINAL ENDOSCOPY REPORT (11/05/2015) Anatomical Region Laterality Modality Other Narrative 11/05/2015 Ordered by an unspecified provider. Result [facility] Historical Provider GI PROCEDURE ORDERABLES F inal Result * Blood glucose, POC (11/04/2015 10:23 PM CDT) Glucose, POC, bld 97 70 - 199 mg/dl HISTORICAL RESULTS Blood specimen (specimen) 11/04/2015 10:23 PM CDT Ankush Parada MD LAB BLOOD ORDERABLES Final Re sult Performing Organization Address [facility] de Phone Number HISTORICAL RESULTS * Blood glucose, POC (11/04/2015 5:20 PM CDT) Glucose, POC, bld 122 70 - 199 mg/dl HISTORICAL RESULTS Blood specimen (specimen) 11/04/2015 5:20 PM CDT Ankush Parada MD LAB BLOOD ORDERABLES Final Re sult Performing Organization Address [facility] de Phone Number HISTORICAL RESULTS * Blood glucose, POC (11/04/2015 12:21 PM CDT) Glucose, POC, bld 162 70 - 199 mg/dl HISTORICAL RESULTS Blood specimen (specimen) 11/04/2015 12:21 PM CDT Ankush Parada MD LAB BLOOD ORDERABLES Final Re sult Performing Organization Address [facility] de Phone Number HISTORICAL RESULTS * (ABNORMAL) Blood cell count (CBC), morphologic exam (11/04/2015 10:28 AM CDT) Pathologist [facility] WBC 2.1(L) 3.8 - 9.8 K/cumm HISTORICAL [...] HISTORICAL RESULTS Comment: If this individual is -Bolivian, multiply result by 1.21 Repeated results of less than 60 is indicative of chronic kidney disease. MDRD formula has not been validated on individuals greater than 70 years old. Plasma 11/04/2015 10:2 8 AM CDT Ayana Jose MD LAB BLOOD ORDERABLES Final Resu lt Performing Organization Address [facility] Co de Phone Number HISTORICAL RESULTS * Blood glucose, POC (11/04/2015 7:26 AM CDT) Glucose, POC, bld 157 70 - 199 mg/dl HISTORICAL RESULTS Blood specimen (specimen) 11/04/2015 7:26 AM CDT Ankush Parada MD LAB BLOOD ORDERABLES Final Re sult Performing Organization Address [facility] de Phone Number HISTORICAL RESULTS * Blood glucose, POC (11/04/2015 2:26 AM CDT) Glucose, POC, bld 155 70 - 199 mg/dl HISTORICAL RESULTS Blood specimen (specimen) 11/04/2015 2:26 AM CDT Ankush Parada MD LAB BLOOD ORDERABLES Final Re sult Performing Organization Address [facility] Co de Phone Number HISTORICAL RESULTS * Blood glucose, POC (11/03/2015 8:28 PM CDT) Glucose, POC, bld 123 70 - 199 mg/dl HISTORICAL RESULTS Blood specimen (specimen) 11/03/2015 8:28 PM CDT Ankush Parada MD LAB BLOOD ORDERABLES Final Re sult Performing Organization Address [facility] de Phone Number HISTORICAL RESULTS * Blood glucose, POC (11/03/2015 5:41 PM CDT) Glucose, POC, bld 118 70 - 199 mg/dl HISTORICAL RESULTS Blood specimen (specimen) 11/03/2015 5:41 PM CDT Ankush Parada MD LAB BLOOD ORDERABLES Final Re sult Performing Organization Address [facility] de Phone Number HISTORICAL RESULTS * Blood glucose, POC (11/03/2015 12:18 PM CDT) Glucose, POC, bld 122 70 - 199 mg/dl HISTORICAL RESULTS Blood specimen (specimen) 11/03/2015 12:18 PM CDT Ankush Parada MD LAB BLOOD ORDERABLES Final Re sult Performing Organization Address [facility] de Phone Number HISTORICAL RESULTS * Blood glucose, POC (11/03/2015 7:57 AM CDT) Glucose, POC, bld 140 70 - 199 mg/dl HISTORICAL RESULTS Blood specimen (specimen) 11/03/2015 7:57 AM CDT Ankush Parada MD LAB BLOOD ORDERABLES Final Re sult Performing Organization Address [facility] de Phone Number HISTORICAL RESULTS * XR Chest 1 View (11/03/2015 6:17 AM CDT) Anatomical Region Laterality Modality Body, Chest N/A Radiographic Aruna ging 11/03/2015 6:17 AM CDT Narrative 11/04/2015 12:08 PM CDT DATE OF EXAM: ??Bjorn ??2 2015 ??6:17AM Acc#: ??[id number] ??EDX [id number] - XR Chest Portable ?? [...] IMPRESSION: ? NO ACUTE CARDIOPULMONARY PROCESS. ? FLAT MACHINE CUTTER: ??TR6 TRANSCRIBE DATE/TIME: ??Nov ??3 2016 ??8:18A RADIOLOGIST: ??FAITH LYNNE M.D. ??READ ON: ??Nov ??2 2015 ??1:08P ORDERING DR: AYANA JOSE M.D. THIS DOCUMENT HAS BEEN ELECTRONICALLY SIGNED BY: ??FAITH LYNNE M.D. ??ON: ??Nov ??3 2015 12:08P Attending: ??BETSY, ??ANKUSH Requesting: ??ANDRÉS, ??AYANA Requesting Fax: ??-- Attending Fax: ??[phone] Attending ID: ??[id number] Requesting ID: ??[id number] Report To 1 ID: ??[id number] Report To 1 Name: ??BETSY, ??ANKUSH Report To 1 FAX: ??[phone] Report To 2 ID: ?? Report To 2 Name: ??, ?? Report To 2 FAX: ??-- NextGen Order #: ?? Procedure Note Provider, MD Tyler - 08/24/2016 DATE OF EXAM: Nov 03 2015 6:17AM Acc#: [id number] EDX [id number] - XR Chest Portable DIAGNOSIS: [...] is normal. IMPRESSION: NO ACUTE CARDIOPULMONARY PROCESS. FLAT MACHINE CUTTER: TR6 TRANSCRIBE DATE/TIME: Nov 04 2015 8:18A RADIOLOGIST: FAITH LYNNE M.D. READ ON: Nov 03 2015 1:08P ORDERING DR: AYANA JOSE M.D. THIS DOCUMENT HAS BEEN ELECTRONICALLY SIGNED BY: FAITH LYNNE M.D. ON: Nov 04 2015 12:08P Attending: ANKUSH PARADA Requesting: AYANA JOSE Requesting Fax: -- Attending Attending ID: [id number] Requesting ID: [id number] Report To 1 ID: [id number] Report To 1 Name: ANKUSH PARADA Report To 1 FAX: [phone] Report To 2 ID: Report To 2 Name: , Report To 2 FAX: -- NextGen Order #: Historical Provider IMG XR PROCEDURES Final R esult * Blood glucose, POC (11/03/2015 4:51 AM CDT) Pathologist [facility] Glucose, POC, bld 128 70 - 199 [...] ORDERABLES Final Resu lt Performing Organization Address [facility] de Phone Number HISTORICAL RESULTS * Plasma partial thromboplastin time (PTT) (11/03/2015 3:00 AM CDT) APTT 29.8 25.0 - 37.0 seconds HISTORICAL RESULTS Plasma 11/03/2015 3:00 AM CDT Result [facility] Ayana Jose MD LAB BLOOD ORDERABLES Final Resu lt Performing Organization Address [facility] Phone Number HISTORICAL RESULTS * Plasma troponin I (11/03/2015 3:00 AM CDT) Pathologist [facility] Troponin I <0.03 0.00 - 0.14 ng/ml HISTORICAL RESULTS Comment: Troponin Reference Ranges: Normal: ?0.00 - 0.14 ng/mL Indeterminate: ?0.15 - 0.50 ng/mL [place] / Cardiac Muscle Damage: ?>0.50 ng/mL Plasma 11/03/2015 3:00 AM CDT Result [facility] Ayana Jose MD LAB BLOOD ORDERABLES Final Resu lt Performing Organization Address [facility] de Phone Number HISTORICAL RESULTS * (ABNORMAL) Blood calcium, ionized (11/03/2015 3:00 AM CDT) Ca, ionized, bld, calc, bld 4.37(L) 4.60 - 5.20 mg/dl HISTORICAL RESULTS Blood specimen (specimen) 11/03/2015 3:00 AM CDT Result [facility] Ayana Jose MD LAB BLOOD ORDERABLES Final Resu lt Performing Organization Address [facility] de Phone Number HISTORICAL RESULTS * Blood lactic acid (11/03/2015 3:00 AM CDT) Lactic acid 1.9 0.5 - 2.2 mmol/L HISTORICAL RESULTS Blood specimen (specimen) 11/03/2015 3:00 AM CDT Ayana Jose MD LAB BLOOD ORDERABLES Final Resu lt HISTORICAL RESULTS * Plasma basic metabolic panel (11/03/2015 3:00 AM CDT) Pathologist [facility] BUN 8 8 - 24 mg/dl HISTORICAL [...] HISTORICAL RESULTS Comment: If this individual is -Bolivian, multiply result by 1.21 Repeated results of less than 60 is indicative of chronic kidney disease. MDRD formula has not been validated on individuals greater than 70 years old. Plasma 11/03/2015 3:00 AM CDT Ayana Jose MD LAB BLOOD ORDERABLES Final Resu lt HISTORICAL RESULTS * Plasma phosphorus (11/03/2015 3:00 AM CDT) Pathologist [facility] Phosphorus, pl 4.0 2.7 - 4.7 mg/dl HISTORICAL RESULTS Plasma 11/03/2015 3:00 AM CDT Ayana Jose MD LAB BLOOD ORDERABLES Final Resu lt HISTORICAL RESULTS * Plasma magnesium (11/03/2015 3:00 AM CDT) Pathologist [facility] Magnesium 1.8 1.8 - 2.6 mg/dl HISTORICAL RESULTS Plasma 11/03/2015 3:00 AM CDT Ayana Jose MD LAB BLOOD ORDERABLES Final Resu lt Performing Organization Address [facility] de Phone Number HISTORICAL RESULTS * Plasma thyroid-stimulating hormone (TSH) (11/03/2015 3:00 AM CDT) [facility] TSH 1.59 0.34 - 5.60 mcIUnits/ml HISTORICAL RESULTS Plasma 11/03/2015 3:00 AM CDT Ayana Jose MD LAB BLOOD ORDERABLES Final Resu Performing Organization Address [facility] de Phone Number HISTORICAL RESULTS * Plasma cortisol (11/03/2015 3:00 AM CDT) [facility] Cortisol 12.8 7.0 - 25.0 mcg/dl HISTORICAL [...] ORDERABLES Final Resu lt Performing Organization Address [facility] de Phone Number HISTORICAL RESULTS * (ABNORMAL) Plasma comprehensive metabolic panel (11/03/2015 3:00 AM CDT) [facility] BUN 7(L) 8 - 24 mg/dl HISTORICAL [...] ORDERABLES Final Resu lt Performing Organization Address [facility] Co de Phone Number HISTORICAL RESULTS * Plasma lipase (11/03/2015 3:00 AM CDT) Lip 27 20 - 50 Units/L HISTORICAL RESULTS Plasma 11/03/2015 3:00 AM CDT us Ayana Jose MD LAB BLOOD ORDERABLES Final Resu lt Performing Organization Address [facility] Co de Phone Number HISTORICAL RESULTS * Plasma amylase (11/03/2015 3:00 AM CDT) [address], [address] 86 28 - 100 Units/L HISTORICAL RESULTS Plasma 11/03/2015 3:00 AM CDT us Ayana Jose MD LAB BLOOD ORDERABLES Final Resu lt Performing Organization Address [facility] Co de Phone Number [...] POC (11/03/2015 2:23 AM CDT) Pathologist [facility] Glucose, POC, bld 140 70 - 199 mg/dl HISTORICAL RESULTS Blood specimen (specimen) 11/03/2015 2:23 AM CDT Ankush Parada MD LAB BLOOD ORDERABLES Final Re sult HISTORICAL RESULTS * Blood Microbiology (11/03/2015 12:00 AM CDT) 11/03/2015 Narrative HISTORICAL RESULTS - 11/08/2015 12:08 PM CDT [facility] ?Patient Name: ?CAMILO CURRY ?Med. Rec#: ?? [id number] ?Pt. Acct.#: ??[id number] ?Birthdate: ?? 1970 ?Age / Sex: ?? [...] L ORDERABLES Final Result Performing Organization Address [facility] de Phone Number HISTORICAL RESULTS * (ABNORMAL) Blood hemoglobin A1C (11/02/2015 10:00 PM CDT) [facility] Hgb A1C 6.8(H) 4.0 - 6.0 % HISTORICAL RESULTS Comment: Hemoglobin A1c ADA Interpretive Guidelines: ?<7% ?? Glycemia controlled ?>8% ?? Hyperglycemia, additional action recommended ?Hema Immunochemical Method Blood specimen (specimen) 11/02/2015 10:00 PM CDT Narrative HISTORICAL RESULTS - 11/03/2015 7:03 AM CDT Test performed at [facility], [address] [place] [address], [id number]. [place] Ayana Jose MD LAB BLOOD ORDERABLES Final Resu lt Performing Organization Address [facility] de Phone Number HISTORICAL RESULTS documented [...]
--- OUTSIDE RECORDS SUMMARY | 2024-05-08 07:40 | XMS_ITS | Encounter Summary ---
Author Organization [facility] Care Team Providers Care Tire Care Manager Name Role Phone Unavailable Primary Care Provider Unavailabl e Encounter Details Date Type Department Care Team (Latest Contact Info) Description 11/19/2015 3:45 AM CDT - 11/23/2015 7:53 PM CDT Hospital Encounter [facility] Ofelia Sanchez MD [address] [place] [address] Portal hypertension (CMS/HCC); Secondary esophageal varices with bleeding (CMS/HCC); Hematemesis; Other cirrhosis of liver (CMS/HCC); Other neutropenia (CMS/HCC); Type 2 diabetes mellitus without complications (CMS/HCC); Iron deficiency anemia; Essential (primary) hypertension; Hypersplenism; Nonalcoholic steatohepatitis (BLAND); Other diseases of stomach and duodenum; Duodenitis without bleeding; [facility] current use of insulin (CMS/HCC); Fever presenting with conditions classified elsewhere Social History Tobacco Use Types Packs/Day Years Used Date Smoking Tobacco: Never Assessed Sex and Gender Information Value Date Recorded Sex Assigned at Not on file 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..] RESULTS Plasma 11/23/2015 11:1 3 AM CDT [facility] Provider LAB BLOOD ORDERABLES Anastasiya l Result CDR HISTORICAL RESULTS * Serum troponin I (11/23/2015 11:13 AM CDT) Pathologist [facility] Troponin I <0.03 0.00 - 0.03 ng/ml CDR HISTORICAL RESULTS Comment: Interpretive Data Serial determinations are recommended for the diagnosis of myocardial infarction (Third Clarion Definition of Myocardial Infarction. ??J Am Tor Cardiol 2012;60:1581-98). Current interpretive data was last revised on 13. Serum 11/23/2015 11:1 3 AM CDT [facility] Provider LAB BLOOD ORDERABLES Anastasiya l Result Performing Organization Address [facility] de Phone Number CDR HISTORICAL RESULTS * Blood glucose, POC (11/23/2015 6:40 AM CDT) Glucose, POC, bld 92 70 - 199 mg/dl CDR HISTORICAL RESULTS Blood specimen (specimen) 11/23/2015 6:40 AM CDT Ofelia Alvarado MD LAB BLOOD ORDERABLES Fin al Result Performing Organization Address [facility] de Phone Number CDR HISTORICAL RESULTS [...] ORDERABLES Final Resul t Performing Organization Address [facility] de Phone Number CDR HISTORICAL RESULTS * Blood glucose, POC (11/22/2015 9:05 PM CDT) Glucose, POC, bld 192 70 - 199 mg/dl CDR HISTORICAL RESULTS Blood specimen (specimen) 11/22/2015 9:05 PM CDT Ofelia Alvarado MD LAB BLOOD ORDERABLES Fin al Result Performing Organization Address [facility] de Phone Number CDR HISTORICAL RESULTS * Blood glucose, POC (11/22/2015 5:12 PM CDT) Glucose, POC, bld 126 70 - 199 mg/dl CDR HISTORICAL RESULTS Blood specimen (specimen) 11/22/2015 5:12 PM CDT Ofelia Alvarado MD LAB BLOOD ORDERABLES Fin al Result Performing Organization Address [facility] de Phone Number CDR HISTORICAL RESULTS * Blood ABO, Rh, indirect ab screen (11/22/2015 9:45 AM CDT) ABO, Rho(D) A Positive CDR HIS TORICAL RESULTS Steve, indirect Negative CDR HISTORICAL RESULTS Blood specimen (specimen) 11/22/2015 9:45 AM CDT Ofelia Alvarado MD LAB BLOOD ORDERABLES Fin al Result Performing Organization Address [facility] de Phone Number CDR HISTORICAL RESULTS * Blood glucose, POC (11/22/2015 6:49 AM CDT) Glucose, POC, bld 171 70 - 199 mg/dl CDR HISTORICAL RESULTS Blood specimen (specimen) 11/22/2015 6:49 AM CDT Ofelia Alvarado MD LAB BLOOD ORDERABLES Fin al Result Performing Organization Address [facility] de Phone Number CDR HISTORICAL RESULTS [...] ORDERABLES Final Resul t Performing Organization Address [facility] de Phone Number CDR HISTORICAL RESULTS [...] updated copy of the Tool Book at [email or web address] Current Interpretive Data was last revised 2011. Plasma 11/21/2015 10:1 7 PM CDT [employer] LAB BLOOD ORDERABLES Final Resul t Performing Organization Address City/[facility]/ZIP Co de Phone Number CDR HISTORICAL RESULTS [...] ORDERABLES Fin al Result Performing Organization Address [facility] Phone Number CDR HISTORICAL RESULTS * Blood glucose, POC (11/21/2015 4:51 PM CDT) Glucose, POC, bld 157 70 - 199 mg/dl CDR HISTORICAL RESULTS Blood specimen (specimen) 11/21/2015 4:51 PM CDT Ofelia Alvarado MD LAB BLOOD ORDERABLES Fin al Result Performing Organization Address [facility] Phone Number CDR HISTORICAL RESULTS * Blood glucose, POC (11/21/2015 11:28 AM CDT) Glucose, POC, bld 133 70 - 199 mg/dl CDR HISTORICAL RESULTS Blood specimen (specimen) 11/21/2015 11:28 AM CDT Ofelia Alvarado MD LAB BLOOD ORDERABLES Fin al Result Performing Organization Address [facility] Phone Number CDR HISTORICAL RESULTS * Blood glucose, POC (11/21/2015 6:37 AM CDT) Glucose, POC, bld 102 70 - 199 mg/dl CDR HISTORICAL RESULTS Blood specimen (specimen) 11/21/2015 6:37 AM CDT us Ofelia Alvarado MD LAB BLOOD ORDERABLES Fin al Result Performing Organization Address [facility] de Phone Number CDR HISTORICAL RESULTS * Plasma partial thromboplastin time (PTT) (11/20/2015 10:01 PM CDT) APTT 29.2 25.0 - 37.0 seconds CDR HISTORICAL RESULTS Comment: Interpretive Data Therapeutic heparin range:60.0 - 94.0 sec based on correlation with therapeutic heparin activity range of 0.3 -0.7 Units/mL. Current interpretive data was last revised on 2011. Plasma 11/20/2015 10:0 1 PM CDT [facility] Provider MD LAB BLOOD ORDERABLES Anastasiya l Result Performing Organization Address [facility] de Phone Number CDR HISTORICAL RESULTS * Plasma basic metabolic panel (11/20/2015 10:01 PM CDT) Pathologist [facility] Sodium 138 135 - 145 mmol/L CDR [...] RESULTS Plasma 11/20/2015 10:0 1 PM CDT [facility] Provider LAB BLOOD ORDERABLES Anastasiya l Result Performing Organization Address [facility] de Phone Number CDR HISTORICAL RESULTS [...] updated copy of the Tool Book at [email or web address] Current Interpretive Data was last [...] RESULTS - 11/20/2015 6:43 PM CDT The [employer] (formerly known as [employer]) FilmArray Respiratory Panel (RP) assay is a [...] FilmArray RP assay is FDA cleared for SHROUDMAN swabs. ??Additional sample types have been validated according to CLIA regulations. ??The performance characteristics of this assay have been determined by [facility]. Current interpretive data was last revised on 2013. Narrative CDR HISTORICAL RESULTS - 11/20/2015 6:43 PM CDT Respiratory Pathogen nucleic acids NOT DETECTED (NEGATIVE) Historical Provider LAB MICROBIOLOGY - GENERA L ORDERABLES Final Result Performing Organization Address [facility] de Phone Number CDR HISTORICAL RESULTS * Blood glucose, POC (11/20/2015 11:34 AM CDT) Pathologist [facility] Glucose, POC, bld 110 70 - 199 mg/dl CDR HISTORICAL RESULTS Blood specimen (specimen) 11/20/2015 11:34 AM CDT Ofelia Alvarado MD LAB BLOOD ORDERABLES Fin al Result Performing Organization Address [facility] de Phone Number CDR HISTORICAL RESULTS [...] updated copy of the Tool Book at [email or web address] Current Interpretive Data was last [...] ORDERABLES Anastasiya l Result Performing Organization Address [facility]/ZIP Co de Phone Number CDR HISTORICAL RESULTS [...] ORDERABLES Final Resul t Performing Organization Address [facility] de Phone Number CDR HISTORICAL RESULTS [...] ORDERABLES Final Resul t Performing Organization Address City/[facility] de Phone Number CDR HISTORICAL RESULTS * Blood glucose, POC (11/19/2015 7:56 AM CDT) Glucose, POC, bld 127 70 - 199 mg/dl CDR HISTORICAL RESULTS Blood specimen (specimen) 11/19/2015 7:56 AM CDT Aung Webb MD LAB BLOOD ORDERABLES Final Result Performing Organization Address [facility] de Phone Number CDR HISTORICAL RESULTS * Blood glucose, POC (11/19/2015 4:40 AM CDT) Glucose, POC, bld 115 70 - 199 mg/dl CDR HISTORICAL RESULTS Blood specimen (specimen) 11/19/2015 4:40 AM CDT Aung Webb MD LAB BLOOD ORDERABLES Final Result Performing Organization Address [facility] de Phone Number CDR HISTORICAL RESULTS * Serum Human Immunodeficiency virus (HIV) 1/2 ab + p24 ag (11/19/2015 4:40 AM CDT) HIV 1/2 ab p24 ag Nonreactive Nonreactive CDR HISTORICAL RESULTS Serum 11/19/2015 4:40 AM CDT Matti Holguin LAB BLOOD ORDERABLES Final Resul t Performing Organization Address [facility] de Phone Number CDR HISTORICAL RESULTS [...] Blood specimen (specimen) 11/19/2015 4:40 AM CDT [facility] Si LAB BLOOD ORDERABLES Final Resul t Performing Organization Address [facility] de Phone Number CDR HISTORICAL RESULTS [...] organism identification may be performed using the [employer] Nanosphere Gram Positive Blood Culture Assay. ??The Nanosphere assay detects microbial DNA in positive blood culture broth via hybridization of target DNA to capture oligonucleotides on a microarray. ??This assay has been cleared by the [place] Food and Drug Administration and its performance characteristics have been verified by the [facility]. Current Interpretive Data was last revised on 2013. Narrative CDR HISTORICAL RESULTS - 11/25/2015 3:55 AM CDT No growth us Historical Provider LAB MICROBIOLOGY - GENERA L ORDERABLES Final Result Performing Organization Address City/[facility] Co de Phone Number CDR [...] organism identification may be performed using the [employer] Nanosphere Gram Positive Blood Culture Assay. ??The Nanosphere assay detects microbial DNA in positive blood culture broth via hybridization of target DNA to capture oligonucleotides on a microarray. ??This assay has been cleared by the [place] Food and Drug Administration and its performance characteristics have been verified by the [facility]. Current Interpretive Data was last revised on 2013. Narrative CDR HISTORICAL RESULTS - 11/25/2015 3:55 AM CDT No growth Historical Provider LAB MICROBIOLOGY - GENERA L ORDERABLES Final Result Performing Organization Address City/State/[facility] Co de Phone Number CDR HISTORICAL RESULTS * Blood glucose, POC (11/19/2015 3:13 AM CDT) Pathologist [facility] Glucose, POC, bld 87 70 - 199 [...] Boo MD LAB BLOOD ORDERABLES Final R [facility] Performing Organization Address [facility] de Phone Number CDR HISTORICAL [...] updated copy of the Tool Book at [email or web address] Current Interpretive Data was last revised 2011. Plasma 11/19/2015 1:02 AM CDT Pranay Boo MD LAB BLOOD ORDERABLES Final R ult Performing Organization Address [facility] de Phone Number CDR HISTORICAL RESULTS [...] ORDERABLES Final Res ult Performing Organization Address [facility] de Phone Number CDR HISTORICAL RESULTS [...] ORDERABLES Final Res ult Performing Organization Address [facility] de Phone Number CDR HISTORICAL RESULTS * Serum lipase (11/19/2015 1:02 AM CDT) Lip 50 10 - 99 Units/L CDR HISTORICAL RESULTS Serum 11/19/2015 1:02 AM CDT Mario Ren MD LAB BLOOD ORDERABLES Final Res ult Performing Organization Address [facility] de Phone Number CDR HISTORICAL RESULTS * (ABNORMAL) Blood cell count (CBC) (11/19/2015 1:02 AM CDT) Pathologist [facility] WBC 2.6(L) 3.8 - 9.9 K/cumm CDR [...] ORDERABLES Final Res ult Performing Organization Address [facility] Co de Phone Number CDR HISTORICAL RESULTS * Blood ABO, Rh, indirect ab screen (11/19/2015 1:02 AM CDT) Pathologist [facility] ABO, Rho(D) A Positive CDR HIS TORICAL RESULTS Steve, indirect Negative CDR HISTORICAL RESULTS Blood specimen (specimen) 11/19/2015 1:02 AM CDT Mario Ren MD LAB BLOOD ORDERABLES Final Res ult Performing Organization Address [facility] Co de Phone Number CDR HISTORICAL RESULTS * (ABNORMAL) Blood cell morphologic exam (11/19/2015 1:02 AM CDT) Pathologist [facility] Monos 17.3 % CDR HISTOR ICAL RESULTS [...] Blood glucose, POC (11/19/2015 12:25 AM CDT) [facility] Glucose, POC, bld 94 70 - [...] of stomach and duodenum Duodenitis without bleeding [facility] current use of insulin (CMS/HCC) (HCC) Fever presenting with conditions classified elsewhere documented in this encounter
--- OUTSIDE RECORDS SUMMARY | 2024-05-08 07:40 | XMS_ITS | Encounter Summary ---
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 FINAL REPORT ACC# ??Date Time ??Exam [id number] October 02, 2015 13:46:00 [id number] Abd Orgn Duplex [id number] October 02, 2015 13:46:00 [id number] Sono Abd Lmtd EXAMINATION: ? Right upper [...] GIBSON M.D. on Oct 02 2015 ??2:12P [id number] Procedure Note Provider, MD Tyler - 08/24/2016 KARL GIBSON M.D. FINAL REPORT ACC# Date Time Exam [id number] October 02, 2015 13:46:00 [id number] Abd Orgn Duplex [id number] October 02, 2015 13:46:00 [id number] Sono Abd Lmtd EXAMINATION: Right upper quadrant [...] GIBSON M.D. on Oct 02 2015 2:12P [id number] us Historical Provider MD PATEL US PROCEDURES Final R esult * US Abdomen Limited (10/02/2015 1:46 PM CDT) Anatomical Region Laterality Modality Abdomen N/A Ultrasound 10/02/2015 1:46 PM CDT Narrative 10/02/2015 2:12 PM CDT KARL GIBSON M.D. FINAL REPORT ACC# ??Date Time ??Exam [id number] October 02, 2015 13:46:00 [id number] Abd Orgn Duplex [id number] October 02, 2015 13:46:00 [id number] Sono Abd Lmtd EXAMINATION: ? Right upper [...] M.D. FINAL REPORT ACC# Date Time Exam [id number] October 02, 2015 13:46:00 [id number] Abd Orgn Duplex [id number] October 02, 2015 13:46:00 [id number] Sono Abd Lmtd EXAMINATION: Right upper quadrant [...]
--- OUTSIDE RECORDS SUMMARY | 2024-05-08 07:40 | XMS_ITS | Encounter Summary ---
Author Organization 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
--- OUTSIDE RECORDS SUMMARY | 2024-05-08 07:41 | XMS_ITS | Encounter Summary ---
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
--- OUTSIDE RECORDS SUMMARY | 2024-05-08 07:41 | XMS_ITS | Encounter Summary ---
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 Dictating: Kisha Quezada M.D. ADMISSION HISTORY AND PHYSICAL Date of Service: 08/23/2015 Admission Diagnoses: 1. Acute cholecystitis. 2. Nonalcoholic steatohepatitis (BLAND) cirrhosis. 3. Esophageal varices. 4. Diabetes. Chief Complaint: Right upper quadrant abdominal pain. History Of Present Illness: This is a 44-year-old male with a recent diagnosis of cirrhosis and esophageal varices who presented to [facility] ER with complaints of right upper [...] and he recommended just coming to the [facility] ER for evaluation with the hope that he might be able to see a liver specialist sooner than his original scheduled appointment. The patient was referred to the Liver Clinic here at [facility] by his primary care doctor for [...] over to the Liver Clinic here at [facility] for referral to the Liver Clinic [...] 09/04/2015 10:35 PM CDT Kisha Quezada M.D. CLA:[facility] #[id number] Editing MT: TD: 08/23/2015 07:44 AM cc: [...] (AMA) Routine 08/23/2015 5:23 PM CDT SERUM [id number] Routine 2015 5:23 PM CDT SERUM ALPHA [...] Blood glucose, POC (08/27/2015 7:55 AM CDT) [facility] Glucose, POC, bld 101 70 - 199 mg/dl HISTORICAL RESULTS Blood specimen (specimen) 08/27/2015 7:55 AM CDT Kisha Quezada MD LAB BLOOD ORDERABLES Anastasiya l Result HISTORICAL RESULTS * DISCHARGE LABORATORY CUMULATIVE REPORT (08/27/2015) Narrative 08/27/2015 Ordered by an unspecified provider. [facility] LAB BLOOD ORDERABLES Anastasiya l Result * Plasma basic metabolic panel (08/26/2015 9:38 PM CDT) [facility] Sodium 139 135 - 145 mmol/L HISTORICAL [...] ORDERABLES F inal Result Performing Organization Address City/[facility] Co de Phone Number HISTORICAL RESULTS * [...] ORDERABLES F inal Result Performing Organization Address [facility] de Phone Number HISTORICAL RESULTS * Blood glucose, POC (08/26/2015 8:30 PM CDT) Glucose, POC, bld 137 70 - 199 mg/dl HISTORICAL RESULTS Blood specimen (specimen) 08/26/2015 8:30 PM CDT Kisha Quezada MD LAB BLOOD ORDERABLES Anastasiya l Result Performing Organization Address [facility] de Phone Number HISTORICAL RESULTS * Blood glucose, POC (08/26/2015 5:58 PM CDT) Glucose, POC, bld 79 70 - 199 mg/dl HISTORICAL RESULTS Blood specimen (specimen) 08/26/2015 5:58 PM CDT Kisha Quezada MD LAB BLOOD ORDERABLES Anastasiya l Result Performing Organization Address [facility] Phone Number HISTORICAL RESULTS * CHEST RADIOGRAPHY, FRONTAL (AP), LATERAL (08/26/2015 12:46 PM CDT) Anatomical Region Laterality Modality N/A Radiographic Aruna ging 08/26/2015 12:4 6 PM CDT Narrative 08/27/2015 10:40 AM CDT KORY OKEEFE M.D. FINAL REPORT ACC# ??Date Time ??Exam [id number] Aug 26, 2015 12:46:00 [id number] Chest 2 views Front&Lat EXAMINATION: ?CHEST, TWO [...] OKEEFE M.D. on Aug 27 2015 10:40A [id number] Procedure Note Provider, MD Tyler - 08/24/2016 KORY OKEEFE M.D. FINAL REPORT ACC# Date Time Exam [id number] Aug 26, 2015 12:46:00 [id number] Chest 2 views Front&Lat EXAMINATION: CHEST, TWO [...] OKEEFE M.D. on Aug 27 2015 10:40A [id number] us Historical Provider IMG XR PROCEDURES Final R esult * Blood glucose, POC (08/26/2015 12:15 PM CDT) Glucose, POC, bld 95 70 - 199 mg/dl HISTORICAL RESULTS Blood specimen (specimen) 08/26/2015 12:15 PM CDT us Kisha Quezada MD LAB BLOOD ORDERABLES Anastasiya enciso Result HISTORICAL RESULTS * (ABNORMAL) Plasma comprehensive metabolic panel (08/26/2015 8:41 AM CDT) Pathologist [facility] Sodium 139 135 - 145 mmol/L HISTORICAL [...] cell count (CBC) (08/26/2015 8:41 AM CDT) [facility] WBC 5.4 3.8 - 9.9 K/cumm HISTORICAL [...] ORDERABLES F inal Result Performing Organization Address City/[facility]/ZIP Co de Phone Number HISTORICAL RESULTS [...] Performing Organization Address [facility] de Phone Number HISTORICAL RESULTS * [...] Performing Organization Address [facility] de Phone Number HISTORICAL RESULTS * [...] performance characteristics have been verified by the [facility] Microbiology Laboratory. Current Interpretive Data was last revised on 2013. Narrative HISTORICAL RESULTS - 09/01/2015 5:42 AM CDT No growth Historical Provider LAB MICROBIOLOGY - GENERA L ORDERABLES Final Result Performing Organization Address City/[facility] Co de Phone Number HISTORICAL RESULTS * [...] performance characteristics have been verified by the [facility]. Current Interpretive Data was last revised on 2013. Narrative HISTORICAL RESULTS - 09/01/2015 5:42 AM CDT No growth us Historical Provider LAB MICROBIOLOGY - GENERA L ORDERABLES Final Result HISTORICAL RESULTS * All Microbiology Report Section (08/26/2015 12:00 AM CDT) 08/26/2015 Narrative HISTORICAL RESULTS - 09/01/2015 6:53 AM CDT ? [facility] ?[facility] [address] ?[place] [address] ? Patient Name: ??CAMILO CURRY ? Med Rec Number: [id number] ? Fin Number: ?[id number] ? Date: ?1970 ? Sex/Age: ? Male 44 years ? Admit Date: ?08/23/2015 ? Discharge Date: 08/27/2015 ? Doctor: ?Medicine , ? Facility: ?[facility] ? Location: ?OTHER ?* Abnormal ??A [...] identification may be ? performed using the [employer] Nanosphere Gram Positive Blood ? Culture Assay. ??The Nanosphere assay detects microbial DNA in ? positive blood culture broth via hybridization of target DNA to ? capture oligonucleotides on a microarray. ??This assay has been ? cleared by the [place] Food and Drug Administration and ? its performance characteristics have been verified by the ? [facility].Current ? Interpretive Data was last revised on 2013. ? us Historical Provider MD LAB MICROBIOLOGY - GENERA L ORDERABLES Final Result HISTORICAL RESULTS * All Microbiology Report Section (08/26/2015 12:00 AM CDT) 08/26/2015 Narrative HISTORICAL RESULTS - 09/01/2015 6:53 AM CDT ? [facility] ?[facility] [address] ?[place] [address] ? Patient Name: ??CAMILO CURRY ? Med Rec Number: [id number] ? Fin Number: ?[id number] ? Date: ?1970 ? Sex/Age: ? Male 44 years ? Admit Date: ?08/23/2015 ? Discharge Date: 08/27/2015 ? Doctor: ?Medicine , ? Facility: ?[facility] ? Location: ?OTHER ?* Abnormal ??A [...] characteristics have been verified by the ? [facility].Current ? Interpretive Data was last revised on 2013. ? us Historical Provider MD LAB MICROBIOLOGY - GENERA L ORDERABLES Final Result Performing Organization Address [facility] de Phone Number HISTORICAL RESULTS * Blood glucose, POC (08/25/2015 8:31 PM CDT) Glucose, POC, bld 128 70 - 199 mg/dl HISTORICAL RESULTS Blood specimen (specimen) 08/25/2015 8:31 PM CDT Kisha Quezada MD LAB BLOOD ORDERABLES Anastasiya l Result Performing Organization Address [facility] de Phone Number HISTORICAL RESULTS * Blood glucose, POC (08/25/2015 5:13 PM CDT) Glucose, POC, bld 140 70 - 199 mg/dl HISTORICAL RESULTS Blood specimen (specimen) 08/25/2015 5:13 PM CDT Kisha Quezada MD LAB BLOOD ORDERABLES Anastasiya l Result Performing Organization Address [facility] de Phone Number HISTORICAL RESULTS * CHEST RADIOGRAPHY, FRONTAL (AP), LATERAL (08/25/2015 1:38 PM CDT) Anatomical Region Laterality Modality N/A Radiographic Aruna ging 08/25/2015 1:38 PM CDT Narrative 08/26/2015 7:39 AM CDT CLEOPATRA DAMON M.D. FINAL REPORT ACC# ??Date Time ??Exam [id number] Aug 25, 2015 13:38:00 [id number] Chest 2 views Front&Lat EXAMINATION: ?? Chest [...] DAMON M.D. on Aug 26 2015 ??7:39A [id number] Procedure Note Provider, MD Tyler - 08/24/2016 CLEOPATRA DAMON M.D. FINAL REPORT ACC# Date Time Exam [id number] Aug 25, 2015 13:38:00 [id number] Chest 2 views Front&Lat EXAMINATION: Chest 2 [...] DAMON M.D. on Aug 26 2015 7:39A [id number] us Historical Provider MD PATEL XR PROCEDURES Final R esult * Blood glucose, POC (08/25/2015 12:37 PM CDT) [facility] Glucose, POC, bld 83 70 - 199 mg/dl HISTORICAL RESULTS Blood specimen (specimen) 08/25/2015 12:37 PM CDT Kisha Quezada MD LAB BLOOD ORDERABLES Anastasiya l Result Performing Organization Address [facility] de Phone Number HISTORICAL RESULTS * Blood glucose, POC (08/25/2015 8:35 AM CDT) Glucose, POC, bld 75 70 - 199 mg/dl HISTORICAL RESULTS Blood specimen (specimen) 08/25/2015 8:35 AM CDT Kisha Quezada MD LAB BLOOD ORDERABLES Anastasiya l Result Performing Organization Address [facility] Phone Number HISTORICAL RESULTS * Serum troponin I (08/24/2015 10:37 PM CDT) Troponin I <0.03 0.00 - 0.03 ng/ml HISTORICAL RESULTS Comment: Interpretive Data Serial determinations are recommended for the diagnosis of myocardial infarction (Third [place] Definition of Myocardial Infarction. ??J Am Tor Cardiol 2012;60:1581-98). Current interpretive data was last revised on 13. Serum 08/24/2015 10:3 7 PM CDT Yariel Melchor MD LAB BLOOD ORDERABLES Final Resul t Performing Organization Address [facility] de Phone Number HISTORICAL RESULTS * XR Abdomen 2 VW (08/24/2015 9:58 PM CDT) Anatomical Region Laterality Modality Body N/A Radiographic Aruna ging 08/24/2015 9:58 PM CDT Narrative 08/25/2015 10:07 AM CDT SREEKANTH CHAMBERS M.D. FINAL REPORT ACC# ??Date Time ??Exam [id number] Aug 24, 2015 21:58:00 [id number] Abdmn wi Decub &/or Erect EXAMINATION: ?? [...] CHAMBERS M.D. on Aug 25 2015 10:07A [id number] Procedure Note Provider, Tyler, - 08/24/2016 SREEKANTH CHAMBERS M.D. FINAL REPORT ACC# Date Time Exam [id number] Aug 24, 2015 21:58:00 [id number] Abdmn wi Decub &/or Erect EXAMINATION: Abdomen [...] CHAMBERS M.D. on Aug 25 2015 10:07A [id number] us Historical Provider MD PATEL XR PROCEDURES [...] (specimen) 08/24/2015 8:40 PM CDT Result [facility] LAB BLOOD ORDERABLES Anastasiya l Result Performing Organization Address [facility]/ZIP Co de Phone Number HISTORICAL RESULTS * Blood glucose, POC (08/24/2015 8:38 PM CDT) Glucose, POC, bld 98 70 - 199 mg/dl HISTORICAL RESULTS Blood specimen (specimen) 08/24/2015 8:38 PM CDT Result [facility] Kisha Quezada MD LAB BLOOD ORDERABLES Anastasiya l Result Performing Organization Address [facility] Co de Phone Number HISTORICAL RESULTS * [...] specimen (specimen) 08/24/2015 12:08 PM CDT Result [facility] Kisha Quezada MD LAB BLOOD ORDERABLES Anastasiya l Result Performing Organization Address [facility] de Phone Number HISTORICAL RESULTS * Blood glucose, POC (08/24/2015 8:05 AM CDT) Glucose, POC, bld 98 70 - 199 mg/dl HISTORICAL RESULTS Blood specimen (specimen) 08/24/2015 8:05 AM CDT Result [facility] Kisha Quezada MD LAB BLOOD ORDERABLES Anastasiya l Result Performing Organization Address [facility] de Phone Number HISTORICAL RESULTS * UPPER GASTROINTESTINAL ENDOSCOPY REPORT (08/24/2015) Anatomical Region Laterality Modality Other Narrative 08/24/2015 Ordered by an unspecified provider. Result [facility] Historical Provider GI PROCEDURE ORDERABLES F inal Result * ELECTROCARDIOGRAPHY (ECG) (08/24/2015) Narrative 08/24/2015 Ordered by an unspecified provider. Result [facility] Historical Provider ECG ORDERABLES Final Res ult * Blood glucose, POC (08/23/2015 8:20 PM CDT) Glucose, POC, bld 88 70 - 199 mg/dl HISTORICAL RESULTS Blood specimen (specimen) 08/23/2015 8:20 PM CDT Result [facility] Kisha Quezada MD LAB BLOOD ORDERABLES Anastasiya l Result Performing Organization Address [facility] Co de Phone Number HISTORICAL RESULTS * Serum ceruloplasmin (08/23/2015 5:23 PM CDT) Ceruloplasmin 26.0 15.0 - 30.0 mg/dl HISTORICAL RESULTS Serum 08/23/2015 5:23 PM CDT Result [facility] Historical Provider LAB BLOOD ORDERABLES Anastasiya l Result Performing Organization Address [facility] Co de Phone Number HISTORICAL RESULTS * Serum Hepatitis C virus (HCV) RNA (08/23/2015 5:23 PM CDT) Pathologist [facility] HCV RNA Not Detected HISTORI AGUILA RESULTS Comment: Interpretive data: The quantifiable range of this assay is 15 IU/mL to 100,000,000 IU/mL (1.18 log IU/mL to 8.00 log IU/mL). Testing was performed by the [employer] AmpliPrep/COLLIN TaqMan HCV Test version 2.0 ([employer] Testing performed at [facility] Current Interpretive Data was last revised on 2015. Serum 08/23/2015 5:23 PM CDT Historical Provider LAB BLOOD ORDERABLES Anastasiya l Result Performing Organization Address [facility] de Phone Number HISTORICAL RESULTS * Serum Hepatitis panel (08/23/2015 5:23 PM CDT) Pathologist [facility] HBV surface ag Negative NEG HISTO RICAL RESULTS HCV ab Negative NEG HISTORICAL RESULTS Comment: Interpretive Data If confirmation is required, call Laboratory Customer Service to request sample to be sent to [facility] for Hepatitis C Virus (HCV) RNA Detection and Quantitation by Real-Time Reverse Computational Scientist-PCR (RT-PCR). Current interpretive data was last revised [...] ORDERABLES Anastasiya enciso Result Performing Organization Address [facility] Co de Phone Number HISTORICAL RESULTS * [...] ORDERABLES Anastasiya l Result Performing Organization Address [facility]/ZIP Co de Phone Number HISTORICAL RESULTS [...] ORDERABLES Anastasiya l Result Performing Organization Address City/[facility] Co de Phone Number HISTORICAL RESULTS * Serum antismooth muscle ab (08/23/2015 5:23 PM CDT) Anti-smooth muscle Negative Negative HISTORICAL RESULTS Serum 08/23/2015 5:23 PM CDT Historical Provider LAB BLOOD ORDERABLES Anastasiya l Result Performing Organization Address [facility] Co de Phone Number HISTORICAL RESULTS * Serum kajzl-1-zamlftxmvkh (08/23/2015 5:23 PM CDT) alpha-1 antitrypsin 184 90 - 200 mg/dl HISTORICAL RESULTS Serum 08/23/2015 5:23 PM CDT Historical Provider LAB BLOOD ORDERABLES Anastasiya l Result Performing Organization Address [facility] de Phone Number HISTORICAL RESULTS * Serum alpha fetoprotein (08/23/2015 5:23 PM CDT) alpha Fetoprotein 3.0 0.0 - 8.1 ng/ml HISTORICAL RESULTS Serum 08/23/2015 5:23 PM CDT Historical Provider LAB BLOOD ORDERABLES Anastasiya l Result Performing Organization Address [facility] Co de Phone Number HISTORICAL RESULTS * [...] agrees with it. ACC# ??Date Time ??Exam [id number] Aug 23, 2015 16:23:00 [id number] Abd Orgn Duplex ACC# ??Date Time ??Exam [id number] Aug 23, 2015 16:23:00 [id number] Abd Orgn Duplex EXAMINATION: ?LIVER DOPPLER HISTORY: [...] agrees with it. ACC# Date Time Exam [id number] Aug 23, 2015 16:23:00 [id number] Abd Orgn Duplex ACC# Date Time Exam [id number] Aug 23, 2015 16:23:00 [id number] Abd Orgn Duplex EXAMINATION: LIVER DOPPLER HISTORY: [...] agrees with it. ACC# ??Date Time ??Exam [id number] Aug 23, 2015 13:46:00 [id number] [employer] GB if pr EXAMINATION: ?HEPATOBILIARY SCINTIGRAPHY [...] agrees with it. ACC# Date Time Exam [id number] Aug 23, 2015 13:46:00 [id number] [employer] GB if pr EXAMINATION: [...] the [place] RealTime HCV Genotype II assay ([employer] [place], [place]). Test Performed by: [address] [address] Variety Performer: Karl Austin II, M.D., Ph.D. Historical Provider LAB BLOOD ORDERABLES Anastasiya enciso Result Performing Organization Address [facility] de Phone Number HISTORICAL RESULTS * [...] ORDERABLES Anastasiya l Result Performing Organization Address [facility] de Phone Number HISTORICAL RESULTS * [...] ORDERABLES Anastasiya l Result Performing Organization Address [facility] de Phone Number HISTORICAL RESULTS * [...] questions please call the chemistry laboratory at [phone] ??or the lab medicine resident television analyzer [phone]. Option #2 us Historical Provider LAB BLOOD ORDERABLES Anastasiya l Result Performing Organization Address [facility] Co de Phone Number HISTORICAL RESULTS * Blood glucose, POC (08/23/2015 4:37 AM CDT) [facility] Glucose, POC, bld 95 70 - 199 mg/dl HISTORICAL RESULTS Blood specimen (specimen) 08/23/2015 4:37 AM CDT us Historical Provider LAB BLOOD ORDERABLES Anastasiya l Result Performing Organization Address [facility] Co de Phone Number HISTORICAL RESULTS * US Abdomen Limited (08/22/2015 9:25 PM CDT) Anatomical Region Laterality Modality Abdomen N/A Ultrasound 08/22/2015 9:25 PM CDT Narrative 08/23/2015 10:01 AM CDT KARL GIBSON M.D. VIKTORIA BOWDEN M.D. FINAL REPORT The radiology attending physician has personally reviewed this study, and has reviewed and/or edited this written report and agrees with it. ACC# ??Date Time ??Exam [id number] Aug 22, 2015 21:25:00 [id number] Sono Abd Lmtd EXAMINATION: ?? LIMITED ABDOMINAL [...] 9:51 a.m. ?? Requested By: SUJATHA PAPPAS [facility] Dictated By: ?? VIKTORIA BOWDEN M.D. ??on [...] agrees with it. ACC# Date Time Exam [id number] Aug 22, 2015 21:25:00 [id number] Sono Abd Lmtd EXAMINATION: LIMITED ABDOMINAL SONOGRAM [...] at 9:51 a.m. Requested By: SUJATHA PAPPAS [facility] Dictated By: VIKTORIA BOWDEN M.D. on Aug [...] 2011. Plasma 08/22/2015 8:20 PM CDT Result [facility] Sujatha Pappas CRNA LAB BLOOD ORDERABLES Fi nal Result Performing Organization Address [facility] Co de Phone Number HISTORICAL RESULTS * [...] the Tool Book at [email or web address] Current Interpretive Data was last revised 2011. Plasma 08/22/2015 8:20 PM CDT Sujatha Pappas CRNA LAB BLOOD ORDERABLES Fi nal Result Performing Organization Address [facility]/ZIP Co de Phone Number HISTORICAL RESULTS [...] ORDERABLES Final Res ult Performing Organization Address [facility] de Phone Number HISTORICAL RESULTS * Plasma hepatic function panel (08/22/2015 2:14 PM CDT) Pathologist [facility] Protein, pl 7.3 6.5 - 8.5 g/dl [...] [facility] Performing Organization Address [facility] de Phone Number HISTORICAL RESULTS * Plasma basic metabolic panel (08/22/2015 2:14 PM CDT) Pathologist [facility] Sodium 139 135 - 145 mmol/L HISTORICAL [...] ORDERABLES Final Res ult Performing Organization Address [facility]/ZIP Co de Phone Number HISTORICAL RESULTS [...] ORDERABLES Final Res ult Performing Organization Address [facility]/State/ZIP Co de Phone Number HISTORICAL RESULTS [...] glucose, POC (08/22/2015 1:19 PM CDT) Pathologist [facility] Glucose, POC, bld 80 70 - 199 mg/dl HISTORICAL RESULTS Blood specimen (specimen) 08/22/2015 1:19 PM CDT Historical Provider LAB BLOOD ORDERABLES Anastasiya l Result Performing Organization Address [facility]/ZIP Co de Phone Number HISTORICAL RESULTS documented [...]
--- OUTSIDE RECORDS SUMMARY | 2024-05-08 07:41 | XMS_ITS | Encounter Summary ---
Author Organization [facility] Care Team Providers Care Computer Assembler Name Role Phone Unavailable Primary Care Provider Unavailabl e Encounter Details Date Type Department Care Team (Latest Contact Info) Description 09/26/2015 12:34 PM CDT - 09/28/2015 2:41 PM CDT Hospital Encounter [facility] Jessica Pereira MD [address] [place] [address] Lelia Garcia MD [address] [place] [address] Secondary esophageal varices without bleeding (CMS/HCC); Portal hypertension (CMS/HCC); Other diseases of stomach and duodenum; Polyp of stomach and duodenum; Anxiety disorder; Nonalcoholic steatohepatitis (BLAND); Bipolar disorder (CMS/HCC); Type 2 diabetes mellitus without complications (CMS/HCC); Sleep apnea; Acute cholecystitis; Personal history of nicotine dependence; 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; Other long term care phlebotomist (current) drug therapy Social History Tobacco Use Types Packs/Day Years Used Date Smoking Tobacco: Never Assessed Sex and Gender Information Value Date Recorded Sex Assigned at Not on file 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 Gender Identity Male 10/29/2020 12:37 PM CDT [...] ORDERABLES Final Result Performing Organization Address [facility] de Phone Number HISTORICAL RESULTS * Blood glucose, POC (09/28/2015 8:13 AM CDT) Glucose, POC, bld 145 70 - 199 mg/dl HISTORICAL RESULTS Blood specimen (specimen) 09/28/2015 8:13 AM CDT Jessica Gleason MD LAB BLOOD ORDERABLES Final Result Performing Organization Address [facility] de Phone Number HISTORICAL RESULTS * Blood glucose, POC (09/28/2015 3:49 AM CDT) Glucose, POC, bld 102 70 - 199 mg/dl HISTORICAL RESULTS Blood specimen (specimen) 09/28/2015 3:49 AM CDT Jessica Gleason MD LAB BLOOD ORDERABLES Final Result Performing Organization Address [facility] de Phone Number HISTORICAL RESULTS [...] specimen (specimen) 09/27/2015 8:52 PM CDT Result [facility] Margoth Lafleur MD LAB BLOOD ORDERABLES Final Resul t Performing Organization Address [facility]/State/ZIP Co de Phone Number HISTORICAL RESULTS [...] specimen (specimen) 09/27/2015 8:52 PM CDT Result [facility] Margoth Lafleur MD LAB BLOOD ORDERABLES Final Resul t Performing Organization Address [facility]/ZIP Co de Phone Number HISTORICAL RESULTS * Blood glucose, POC (09/27/2015 8:23 PM CDT) Glucose, POC, bld 132 70 - 199 mg/dl HISTORICAL RESULTS Blood specimen (specimen) 09/27/2015 8:23 PM CDT Jessica Gleason MD LAB BLOOD ORDERABLES Final Result Performing Organization Address [facility]/State/ZIP Co de Phone Number HISTORICAL RESULTS * Blood glucose, POC (09/27/2015 1:54 PM CDT) Glucose, POC, bld 125 70 - 199 mg/dl HISTORICAL RESULTS Blood specimen (specimen) 09/27/2015 1:54 PM CDT Jessica Gleason MD LAB BLOOD ORDERABLES Final Result Performing Organization Address [facility] de Phone Number HISTORICAL RESULTS [...] ORDERABLES Final Result Performing Organization Address [facility] de Phone Number HISTORICAL RESULTS * Blood glucose, POC (09/27/2015 7:45 AM CDT) Glucose, POC, bld 90 70 - 199 mg/dl HISTORICAL RESULTS Blood specimen (specimen) 09/27/2015 7:45 AM CDT Jessica Gleason MD LAB BLOOD ORDERABLES Final Result Performing Organization Address [facility] de Phone Number HISTORICAL RESULTS [...] ORDERABLES Final Result Performing Organization Address [facility] de Phone Number HISTORICAL RESULTS [...] updated copy of the Tool Book at [email or web address] Current Interpretive Data was last revised 2011. Plasma 09/27/2015 3:10 AM CDT Jessica Gleason MD LAB BLOOD ORDERABLES Final Result Performing Organization Address [facility] de Phone Number HISTORICAL RESULTS [...] specimen (specimen) 09/27/2015 3:10 AM CDT Result [facility] Jessica Gleason MD LAB BLOOD ORDERABLES Final Result Performing Organization Address [facility] de Phone Number HISTORICAL RESULTS * Blood glucose, POC (09/27/2015 2:10 AM CDT) Glucose, POC, bld 140 70 - 199 mg/dl HISTORICAL RESULTS Blood specimen (specimen) 09/27/2015 2:10 AM CDT Result [facility] Jessica Gleason MD LAB BLOOD ORDERABLES Final Result Performing Organization Address [facility] de Phone Number HISTORICAL RESULTS * UPPER GASTROINTESTINAL ENDOSCOPY REPORT (09/27/2015) Anatomical Region Laterality Modality Other Narrative 09/27/2015 Ordered by an unspecified provider. Result [facility] Provider GI PROCEDURE ORDERABLES F inal Result * Blood glucose, POC (09/26/2015 11:03 PM CDT) Glucose, POC, bld 107 70 - 199 mg/dl HISTORICAL RESULTS Blood specimen (specimen) 09/26/2015 11:03 PM CDT Jessica Gleason MD LAB BLOOD ORDERABLES Final Result Performing Organization Address [facility] Co de Phone Number HISTORICAL RESULTS * Blood check sample (09/26/2015 8:15 PM CDT) Pathologist [facility] ABO, Rho(D) A Positive HISTORI AGUILA RESULTS Blood specimen (specimen) 09/26/2015 8:15 PM CDT Historical Provider LAB BLOOD ORDERABLES Anastasiya l Result Performing Organization Address [facility] de Phone Number HISTORICAL RESULTS * (ABNORMAL) Plasma hepatic function panel (09/26/2015 3:22 PM CDT) [facility] Protein, pl 8.3 6.5 - 8.5 [...] Final Res ult Performing Organization Address [facility] de Phone Number HISTORICAL RESULTS * (ABNORMAL) Plasma basic metabolic panel (09/26/2015 3:22 PM CDT) Pathologist [facility] Sodium 142 135 - 145 mmol/L HISTORICAL [...] Final Res ult Performing Organization Address [facility] de Phone Number HISTORICAL RESULTS * Serum lipase (09/26/2015 3:22 PM CDT) Lip 37 10 - 99 Units/L HISTORICAL RESULTS Serum 09/26/2015 3:22 PM CDT Mario Ren MD LAB BLOOD ORDERABLES Final Res ult Performing Organization Address [facility] Phone Number HISTORICAL RESULTS * (ABNORMAL) Blood [...] Final Res ult Performing Organization Address [facility]/ZIP Co de Phone Number HISTORICAL RESULTS * [...] Acute cholecystitis Personal history of nicotine dependence residential current use of opiate analgesic Other long term care phlebotomist (current) drug therapy documented in this encounter
--- OUTSIDE RECORDS SUMMARY | 2024-05-08 07:41 | XMS_ITS | Encounter Summary ---
Author Organization [facility] Healthcare Address [address] [place] [address] Care Team Providers Care Active Directory Systems Administrator Name Role Phone Unavailable Primary Care Provider Unavailabl e Encounter Details Date Type Department Care Team (Late st Contact Info) Description 01/01/2015 9:11 AM CDT - 01/01/2015 11:59 PM CDT Hospital Encounter [facility] Sean Garcia MD [address] [address] Spinal stenosis of lumbar region without neurogenic claudication; Degeneration of lumbar or lumbosacral intervertebral disc Social History Tobacco Use Types Packs/Day Years Used Date Smoking Tobacco: Never Assessed Sex and Gender Information Value Date Recorded Sex Assigned at Not on file 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 3. MILD DEGENERATIVE DISC DISEASE AT L4-L5. Interpreting Physician: CHATO SEARS M.D. Read on: Jan 01 201510:03A Transcribed by: christina On: Jan 01 2015 10:44A Approved Electronically by: CHATO SEARS M.D. on: Jan 01 201510:56A Attending: NO, NAME Requesting: SEAN MONTES Requesting Fax: -- Attending Fax: -- Attending ID: [id number] Requesting ID: [id number] Report To 1 ID: [id number] Report To 1 Name: SEAN MONTES Report To 1 FAX: -- NextGen Order #: us Historical Provider MD PATEL MRI PROCEDURES Final Result documented in this encounter Visit Diagnoses Diagnosis Spinal stenosis of lumbar region without neurogenic claudication Degeneration of lumbar or lumbosacral intervertebral disc documented in this encounter
== END 2024-05-01 10:30 | disposition home or self-care (01) ==
LOC: CHSED 10:14
PROVIDERS: Emergency Provider Emergency Medicine; PCP Physician Assistant
DX: M54.50 Low back pain, unspecified (principal); G89.29 Other chronic pain; E11.9 Type 2 diabetes mellitus without complications; K21.9 Gastro-esophageal reflux disease without esophagitis; K72.90 Hepatic failure, unspecified without coma; Z79.891 Long term (current) use of opiate analgesic; Z79.51 Long term (current) use of inhaled steroids; Z79.4 Long term (current) use of insulin; Z79.85 Long-term (current) use of injectable non-insulin antidiabetic drugs; Z87.891 Personal history of nicotine dependence; Z79.84 Long term (current) use of oral hypoglycemic drugs
CPT/HCPCS: 96372; 99283; A9270; J1171

== ENCOUNTER 2024-06-08 06:59 | Emergency (ER) | payer OTHER, SELFPAY ==
[2024-06-08] VITALS (54 sets, daily range): BP systolic 94–139; BP diastolic 50–79; PULSE 72–125; RESP 13–23; TEMP 37–38.4; O2SAT 8–98
--- NOTE | ~2024-06-08 | XR_ITS ---
Portable chest x-ray Comparison: 01/14/2024 Clinical History: Cough Findings: There is central congestive change bilaterally. Cardiomediastinal silhouette is stable. B ones and soft tissues are unremarkable. Impression: Central pulmonary venous congestive change. Stable cardiomegaly. Reviewed, dictated and finalized at [facility]. SIVE SPRAYER Impression: Central pulmonary venous congestive change. Stable cardiomegaly.
--- OUTSIDE RECORDS SUMMARY | 2024-06-08 07:01 | XMS_ITS | Encounter Summary ---
Author Organization [facility] Healthcare Address [address] [place] [address] Care Team Providers Care Blind Slat Stapling Machine Operator Name Role Phone Braydon Pavon Primary Care Provider [phone] Nikolay Lancaster MD Unavailable [phone] Simon Lundberg MD Primary Care Provider [phone] Nacho Rodriguez MD Unavailable [phone] Elian Gross MD Unavailable Braydon Pavon Primary Care Provider [phone] Encounter Details Date Type Department Care Team (Late st Contact Info) Description 10/05/2020 Telephone [facility] [address] [place] [place] [id number] Trice Aldana, RT Social History Tobacco Use [...] on filedocumented in this encounter Care Teams Blind Slat Stapling Machine Operator Relationship Specialty Start Date End Date Braydon Pavon PA [address] [place] [address] PCP - General Family Practice 05/09/20 05/19/21 Simon Lundberg MD [address] [place] [address] PCP - General Family Medicine 05/20/21 08/22/21 Braydon Pavon PA [address] [place] [address] PCP - General 08/23/21 Nikolay Lancaster MD [address] [place] [address] 05/09/20 05/19/21 [place] [address] [facility] [address], [place] [address] Consulting Physician Endocrinology 05/20/21 [place] [address] [address] [facility] [address], [place] [address] Consulting Physician Internal Medicine 05/20/21 documented as of this encounter
--- OUTSIDE RECORDS SUMMARY | 2024-06-08 07:01 | XMS_ITS | Referral Summary ---
Author Organization [facility] Address [address] [place] [address] Care Team Providers Care Rail Bender Name Role Phone Braydon Pavon Primary Care Provider [phone] Source Comments [facility],non-owned Affiliates and Associated Physician Practices is amultiple site organization consisting of ambulatory clinics and hospital sitesin [place], [place], [place] and [place]. This disclosure is being madepursuant to the Care Everywhere program and may not contain all information available regarding this patient. Last updated 18.[facility] Encounters Date Type Department Care Team Description 05/18/2024 Travel from Last 3 Months Allergies Active Allergy [...] 08/27/2018 Active Additional Information Patient not taking.Reason: Cost, Reported on 05/18/2024 HYDROcodone 10 MG CAPS cmpd capsule Take [...] tablet to dissolve on the tongue Active HYDROcodone-acetami nophen ([place]) 7.5-325 MG tablet Take 1 (one) tablet by mouth every 8 hours as needed Active traZODone (Desyrel) 100 MG tablet Take 1 (one) tablet by mouth 2 times daily 02/02/2023 Active Active Problems Problem Noted Date Diagnosed [...] Years Used Date Smoking Tobacco: Former Cigarettes 1 15 1 985 - 2000 Smokeless Tobacco: Never Tobacco Cessation:Counseling Given: Not [...] CDT Inhaled Oxygen Concentration - - Weight 102.1 kg (225 lb) 05/18/2024 3:55 PM GUIDE SETTER Height 170.2 cm (5' 7 ) 05/18/2024 3:55 PM GUIDE SETTER Body Mass Index 35.24 05/18/2024 3:55 PM GUIDE SETTER Functional Status Functional Status Response Date of [...] concentrating/remembering/making decisions? No 02/12/2024 Plan of Treatment Not on file Goals Goal Patient Goal Type Associated Problems Recent Progress Patient-Stated? Author Medication Management General On track( 024 3:12 PM CDT) No Yoly Kirk, RN Note: Expected end date: ongoing Interventions: Take all medications as prescribed Let your doctor know right away about any changes in your medications Make sure to request a refill of your medication at least one week prior to your last dose Procedures Procedure Name Priority Date/Time Associated Diagnosis Comments COMPREHENSIVE METABOLIC PANEL Routine 12/29/2023 1:12 PM CDT Cirrhosis of liver without ascites, unspecified hepatic cirrhosis type (HCC) HEMOGLOBIN A1C - POINT OF CARE (AMB) [facility] Routine 05/24/2018 Type 2 diabetes mellitus with complication, with long-term current use of insulin (HCC) from Last 3 Months or Most Recently Relevant to Health Maintenance Results * (ABNORMAL) COMPREHENSIVE METABOLIC PANEL (12/29/2023 1:12 PM [facility]) BUN 13 7 - 26 mg/dL 12/29/2023 2:07 PM [facility] Creatinine 0.73 0.71 - 1.16 mg/dL 12/29/2023 2:07 PM [facility] Sodium 138 136 - 145 mmol/L 12/29/2023 2:07 PM [facility] Potassium 4.8(H) 3.5 - 4.5 mmol/L 12/29/2023 2:07 PM [facility] Chloride 105 98 - 107 mmol/L 12/29/2023 2:07 PM [facility] CO2 25 22 - 29 mmol/L 12/29/2023 2:07 PM [facility] Glucose 362(H) 70 - 115 mg/dL 12/29/2023 2:07 PM [facility] Calcium 9.8 8.4 - 10.2 mg/dL 12/29/2023 2:07 PM [facility] Protein Total 7.0 6.0 - 8.3 g/dL 12/29/2023 2:07 PM [facility] Albumin 3.7 3.4 - 5.0 g/dL 12/29/2023 2:07 PM [facility] Bilirubin Total 3.2(H) 0.2 - 1.2 mg/dL 12/29/2023 2:07 PM [facility] Alkaline Phosphatase 89 40 - 150 U/L 12/29/2023 2:07 PM [facility] ALT 16 5 - 55 U/L 12/29/2023 2:07 PM [facility] AST 23 5 - 34 U/L 12/29/2023 2:07 PM [facility] Anion Gap 8 6 - 16 12/29/2023 2:07 PM [facility] BUN/Creatinine Ratio 18 7 - 23 12/29/2023 2:07 PM CDT [facility] Osmolality Calculated 301(H) 275 - 295 mOsm/kg 12/29/2023 2:07 PM CDT [facility] Albumin/Globulin Ratio 1.1 1.1 - 2.3 12/29/2023 2:07 PM CDT [facility] eGFR by CKD-EPI >90 >=90 mL/min/1.7 3 m2 12/29/2023 2:07 PM CDT [facility] Blood BLOOD SPECIMEN / Unknown Lab Venipuncture / Unknown 12/29/2023 1:12 PM CDT 12/29/2023 1:37 PM CDT Steve Bedolla MD LAB - CHEMISTRY LIONEL WHITT [facility] Organization Address City/State/ZIP Co de Phone Number [facility] [address] [place] [address], [facility] [phone] * HEMOGLOBIN A1C - POINT OF CARE (AMB) [facility] (05/24/2018) Hemoglobin A1c POCT 8.2 BLOOD SPECIMEN / Unknown 05/24/2018 Edmond Choi MD LAB - POINT OF CARE ORDERABLES from Last 3 Months or Most Recently Relevant to Health Maintenance Care Teams Rail Bender Relationship Specialty Start Date End Date Braydon Pavon PA [address] [place] [phone] PCP - General Physician Bilingual Speech Therapist 07/14/23
--- OUTSIDE RECORDS SUMMARY | 2024-06-08 07:01 | XMS_ITS | Clinical Summary ---
Author Organization [facility] Address [address] [place] [address] Care Team Providers Care Spring Assembler Supervisor Name Role Phone Braydon Pavon Primary Care Provider [phone] Source Comments [facility],non-owned Affiliates and Associated Physician Practices is amultiple site organization consisting of ambulatory clinics and hospital sitesin [place], [place], [place] and [place]. This disclosure is being madepursuant to the Care Everywhere program and may not contain all information available regarding this patient. Last updated 18.[facility] [employer] Allergies Active Allergy Reactions Criticality Noted Date [...] dissolve on the tongue Active HYDROcodone-acetami nophen ([place]) 7.5-325 MG tablet Take 1 (one) tablet [...] Description 05/18/2024 Travel from Last 3 Months Family History [...] 102.1 kg (225 lb) 05/18/2024 3:55 PM INTELLIGENCE AGENT Height 170.2 cm (5' 7 ) 05/18/2024 3:55 PM INTELLIGENCE AGENT Body Mass Index 35.24 05/18/2024 3:55 PM INTELLIGENCE AGENT Plan of Treatment Health Maintenance Due Date Last Done Comments COLOGUARD (AGES 45-75) - COLON CA SCREENING [address] COLONOGRAPHY - COLON CA SCREENING 1970 FIT - COLON CA SCREENING 1970 FLEX SIG - COLON CA SCREENING 1970 HIV SCREENING 1985 HEPATITIS C SCREENING 08/31/1988 DTAP/TDAP/TD VACCINES (1 - Tdap) 1989 HEPATITIS B VACCINE (1 of 3 - 19+ 3-dose series) 1989 PNEUMOCOCCAL VACCINE 50+ (1 of 2 - PCV) 1989 DIABETES-STATIN 2010 DIABETES RETINOPATHY SCREENING 05/24/2018 DIABETES-FOOT EXAM WITH MONOFILAMENT 05/24/2019 05/24/2018 ZOSTER VACCINE (1 of 2) 2020 COVID-19 VACCINE (3 - 2023- season) 2024 12/29/2020, 12/08/2020 INFLUENZA VACCINE (#1) 2024 DEPRESSION SCREENING 05/04/2024 DIABETES - URINE PROTEIN SCREENING 05/04/2024 DIABETES-HGB A1C 05/25/2024 11/23/2023, , 02/10/2023, Additional history exists DIABETES-SERUM CREATININE 01/21/20252023, 01/22/2024, 12/29/2023, Additional history exists COLONOSCOPY - COLON CA SCREENING 12/17/2030 12/17/2020 Colorectal Cancer Screening 12/17/2030 HIB VACCINE Aged Out No longer eligi ble based on patient's age to complete this topic HPV VACCINE Aged Out No longer eligi ble based on patient's age to complete this topic MENINGOCOCCAL (Group B) VACCINE Aged Out No longer eligible based on [...] - 26 mg/dL 12/29/2023 2:07 PM CDT [facility] Creatinine 0.73 0.71 - 1.16 mg/dL 12/29/2023 2:07 PM CDT [facility] Sodium 138 136 - 145 mmol/L 12/29/2023 2:07 PM [facility] Potassium 4.8(H) 3.5 - 4.5 mmol/L 12/29/2023 2:07 PM [facility] Chloride 105 98 - 107 mmol/L 12/29/2023 2:07 PM [facility] CO2 25 22 - 29 mmol/L 12/29/2023 2:07 PM [facility] Glucose 362(H) 70 - 115 mg/dL 12/29/2023 2:07 PM [facility] Calcium 9.8 8.4 - 10.2 mg/dL 12/29/2023 2:07 PM [facility] Protein Total 7.0 6.0 - 8.3 g/dL 12/29/2023 2:07 PM [facility] Albumin 3.7 3.4 - 5.0 g/dL 12/29/2023 2:07 PM [facility] Bilirubin Total 3.2(H) 0.2 - 1.2 mg/dL 12/29/2023 2:07 PM [facility] Alkaline Phosphatase 89 40 - 150 U/L 12/29/2023 2:07 PM [facility] ALT 16 5 - 55 U/L 12/29/2023 2:07 PM [facility] AST 23 5 - 34 U/L 12/29/2023 2:07 PM [facility] Anion Gap 8 6 - 16 12/29/2023 2:07 PM [facility] BUN/Creatinine Ratio 18 7 - 23 12/29/2023 2:07 PM [facility] Osmolality Calculated 301(H) 275 - 295 mOsm/kg 12/29/2023 2:07 PM [facility] Albumin/Globulin Ratio 1.1 1.1 - 2.3 12/29/2023 2:07 PM [facility] eGFR by CKD-EPI >90 >=90 mL/min/1.7 3 m2 12/29/2023 2:07 PM [facility] Blood BLOOD SPECIMEN / Unknown Lab Venipuncture / Unknown 12/29/2023 1:12 PM CDT 12/29/2023 1:37 PM CDT Steve Bedolla MD LAB - CHEMISTRY LIONEL WHITT [facility] [address] [place] [address], [facility] [phone] * HEMOGLOBIN A1C - POINT OF CARE (AMB) [facility] (05/24/2018) Hemoglobin A1c POCT 8.2 BLOOD SPECIMEN / Unknown 05/24/2018 Edmond Choi MD LAB - POINT OF CARE ORDERABLES from Last 3 Months or Most Recently Relevant to Health Maintenance Care Teams Spring Assembler Supervisor Relationship Specialty Start Date End Date Braydon Pavon PA [address] [place] [address] PCP - General Physician Steamtable Attendant Railroad 07/14/23
--- OUTSIDE RECORDS SUMMARY | 2024-06-08 07:01 | XMS_ITS | Clinical Summary ---
Author Organization [facility] Address [address] [place] [address] Phone Care Team Providers Care Trial Lawyer Name Role Phone Braydon Pavon VAL Primary Care Provider [phone] Vikram Mora MD Unavailable Riddhi Bello APRN, PROFESSOR OF COMMUNICATION ARTS Unavailable Allergies Active Allergy Reactions Criticality Noted [...] as needed. 3 Active ergocalciferol (VITAMIN D) 10936 UNIT Capsule Take 50,000 Units by mouth. Active Insulin Pen Needle (B-D ULTRAFINE III SHORT PEN) 31G X 8 MM Misc 1 Active Insulin Pen Needle (B-D ULTRAFINE III SHORT PEN) 31G X 8 MM Misc 1 Each by Subcutaneous route. 1 Active Insulin Pen Needle (Pen [place]) 32G X 4 MM Misc Inject 3 [...] 10 Tablet 4 Active Continuous Blood Gluc Fast Foods Worker (Dexcom G7 Fast Foods Worker) Device Check blood glucose before each meal and at bedtime 1 Each 4 Active HYDROcodone-bella taminophen ([place]) 10-325 MG Tablet Take 1 Tablet by [...] on file Legal Sex Male 10:58 AM DROP FORGE HAND Gender Identity Not on file Sexual Orientation [...] W/ ESTIMATED GLUCOSE STAT 05/20/2023 10:44 AM DROP FORGE HAND from Last 3 Months or Most Recently Relevant to Health Maintenance Results * (ABNORMAL) CMP (Comprehensive Metabolic Panel) (11/13/2023 6:40 PM CDT) SODIUM 139 136 - 145 mmol/L 11/13/2023 7:25 PM CDT [facility] POTASSIUM 3.7 3.5 - 5.1 mmol/L 11/13/2023 7:25 PM CDT [facility] CHLORIDE 105 98 - 107 mmol/L 11/13/2023 7:25 PM CDT [facility] CO2, VENOUS 24 22 - 30 mmol/L 11/13/2023 7:25 PM CDT [facility] ANION GAP 13.7 <18.0 mmol/L 11/13/2023 7:25 PM CDT [facility] GLUCOSE 188(H) 70 - 99 mg/dL 11/13/2023 7:25 PM CDT [facility] BUN 11 8 - 26 mg/dL 11/13/2023 7:25 PM CDT [facility] CREATININE, BLOOD 0.84 0.70 - 1.30 mg/dL 11/13/2023 7:25 PM CDT [facility] BUN/CREATININE RATIO 13 12 - 20 ratio 11/13/2023 7:25 PM CDT [facility] TOTAL PROTEIN 7.3 6.3 - 8.2 g/dL 11/13/2023 7:25 PM CDT [facility] ALBUMIN 3.9 3.5 - 5.0 g/dL 11/13/2023 7:25 PM CDT [facility] A/G RATIO 1.1 1.0 - 2.2 11/13/2023 7:25 PM CDT [facility] CALCIUM 9.4 8.7 - 10.5 mg/dL 11/13/2023 7:25 PM CDT [facility] T BILI 3.6(H) 0.2 - 1.2 mg/dL 11/13/2023 7:25 PM CDT [facility] SGOT (AST) 27 5 - 34 U/L 11/13/2023 7:25 PM CDT [facility] SGPT (ALT) 17 0 - 55 U/L 11/13/2023 7:25 PM CDT [facility] ALKALINE PHOSPHATASE 90 40 - 150 U/L 11/13/2023 7:25 PM CDT [facility] GFR, ESTIMATED >60 >=60 11/13/2023 7:25 PM CDT [facility] Comment: Creatinine Clearance is the preferred criteria for selecting drug dose adjustments in renally impaired patients. ??The GFR is provided as additional pertinent clinical information. GFR is reported in mL/min/1.73 sq m. Calculation based on the Chronic Kidney Disease Epidemiology Collaboration (CKD- EPI) equation refit without adjustment for race. GFR, EST. >60 >=60 024 7:25 PM CDT [facility] GFR, EST. NONAFRICAN >60 >=60 11/13/2023 7:25 PM CDT [facility] Blood Venipuncture / Unknown 11/13/2023 6:40 PM CDT 11/13/2023 7:00 PM CDT us Lul Junior DO CHEMISTRY ORDERABLES Fi nal Result [facility] [address] [place] [address] * (ABNORMAL) Hemoglobin A1C (05/20/2023 10:44 AM DROP FORGE HAND) HGB-A1C 11.6(H) 4.0 - 6.0 % 05/20/2023 12:30 PM DROP FORGE HAND [facility] Est Average Glucose 286.2 mg/dL 05/20/2023 12:30 PM DROP FORGE HAND [facility] Blood Venipuncture / Unknown 05/20/2023 10:44 AM DROP FORGE HAND 05/20/2023 11:01 AM DROP FORGE HAND Narrative [facility] - 05/20/2023 12:30 PM DROP FORGE HAND HEMOGLOBIN A1C: DIABETIC PATIENTS: WELL-CONTROLLED: ?? 6.2 - 7.0 INTERMEDIATE WELL-CONTROLLED: ??7.0 - 9.0 POORLY-CONTROLLED: ??>9.0 us Felicitas Luz AIRCRAFT ACCESSORIES MECHANIC, PROFESSOR OF COMMUNICATION ARTS CHEMISTRY ORDERABLES Final Result [facility] [address] [place] [address] from Last 3 Months or Most Recently Relevant to Health Maintenance Insurance MEDICAID [employer]ET[employer] [facility] TPL Care Teams Trial Lawyer Relationship Specialty Start Date End Date Braydon Pavon PAC [address] [place] [address] PCP - General Physician Supervisor Drawing 06/22/18 Vikram Mora MD [address] [id number] Consulting Physician Endocrinology 05/21/23 Riddhi Bello APRN, PROFESSOR OF COMMUNICATION ARTS [address] [place] [address] Nurse Practitioner Advanced Practice Nurse 02/10/23
--- OUTSIDE RECORDS SUMMARY | 2024-06-08 07:01 | XMS_ITS | Continuity of Care Document ---
Author Organization [facility] Address [address] [employer] [place] [address] Phone Care Team Providers Care Coating Line Worker Name Role Phone Roosevelt Mcgee MD Unavailable Unavailable Allergies, Adverse Reactions, Alerts Substance Reaction Status Criticality CIPROFLOXACIN HCL Active No Informa tion ciprofloxacin Active No Information erythromycin base Active No Informa tion Sulfa (Sulfonamide Antibiotics) Active No Information PENICILLIN Active No Information Medications Medication Instructions Dosage Effective Dates (start - stop) Status Comments [place] 10 mg-325 mg tablet take 1 tablet [...] Copied on Encounter OFFICE/OUTPA TIENT VISIT, EST [facility], [address], [place], [id number], [place] tel:[phone] [facility] anxiety1 (chief complaint) DM (chief complaint) liver cirrhosis (chief complaint) GERD1 (chief complaint) chronic pain (chief complaint) Type 2 diabetes mellitus without complicationsGenera lized Anxiety DisorderOther cirrhosis of liverChronic pain syndrome 2-[address] [place], [place], [id number] , . tel:[phone] Referring Provider: Roosevelt Mcgee [address], [place], [place], [id number]. tel:[phone] Family History Family Member Type Diagnosis Age [...] takes lantus, tradejnta, humalog. His BG is [id number]. Pt sees endo for his DM. Pt [...] Date Complaint History Of Prese nt Illness chronic pain Pt told me he mcbride s chronic pain including neuropathy and also back pain. Pt denies any loss of bowel or bladder control GERD1 Pt has GERd. Pt takes omeprzole and doing ok. Pt denies any abd pain liver cirrhosis Pt has end stage liver cirrhosis. Pt told me he has BLAND. Pt told me he does not have hepatitis C or B. Pt sees liver speicalist. Pt is on xifaxan. Pt sees liver speicalist DM Pt has DM. Pt ta kes lantus, tradejnta, humalog. His BG is around 250s. Pt sees endo for his DM. Pt denies any hypoglycemia anxiety1 Pt has chronic a nixety and depression. Pt takes paxil and doing ok. Pt denies any suicidal or homicidal thought Instructions Date Instruction Additional Infor mation Prescribed [...] Mental Status Date Cognitive Assessment Orientation - [place] ed to time, place, person, situation.
--- OUTSIDE RECORDS SUMMARY | 2024-06-08 07:01 | XMS_ITS | Clinical Summary ---
Author Organization [facility] Address [address] [place] [address] Care Team Providers Care Biztalk Architect Name Role Phone Braydon Pavon Primary Care Provider [phone] Allergies Active Allergy Reactions Criticality Noted Date [...] (two) times daily. Active vitamin D2, ergocalciferol, 81047 UNITS capsule Take 1 capsule (50,000 Units total) by mouth every 30 (thirty) days. Active Insulin Pen Needle (PEN NEEDLES) 32G X 4 MM Misc Inject 3 times daily 08/04/19 20 Active ONE TOUCH ULTRA TEST STRIPS test stripIndications:T ype 2 diabetes mellitus with hyperglycemia, with long-term current use of insulin ([facility]) Test 4 times daily 200 strip 11 09/06/19 20 Active B-D ULTRAFINE III SHORT PEN 31G X 8 MM Misc 02/27/20 21 Active albuterol sulfate HFA 108 (90 Base) MCG/ACT inhaler Inhale 2 puffs into the lungs. Active ALPRAZolam (XANAX) 1 MG tablet Take 1 tablet (1 mg total) by mouth 3 (three) times daily. Active TRULICITY 0.75 MG/0.5ML injection Inject 0.75 mg into the skin once a week. 07/03/19 24 Active famotidine (PEPCID) 20 MG tablet 05/20/19 24 Active HYDROcodone-acetam inophen (NORCO) 10-325 MG tablet Act chetna naloxone (NARCAN) 4 MG/0.1ML nasal spray Active ondansetron (ZOFRAN-ODT) 4 MG disintegrating tablet Take 1 tablet (4 mg total) by mouth. 05/20/19 Active pregabalin (LYRICA) 200 MG capsule Take 1 capsule (200 mg total) by mouth daily. Active insulin regular, CONCENTRATED, (HUMULIN R U-500 KWIKPEN) 500 UNIT/ML injectionIndicatio ns:Type 2 diabetes mellitus with hyperglycemia, with long-term current use of insulin ([facility]) Inject 0.4 mLs (200 Units total) into the skin 3 (three) times daily before meals. 18 mL 11 02/19/20 24 Active Additional Information Patient taking differently:200 Units Subcutaneous 3 times daily before meals,Pt taking 200 units three times, Reported on 05/31/2024 Continuous Glucose Sensor ([employer] G7 SENSOR) MiscIndications:Ty pe 2 diabetes mellitus with hyperglycemia, with long-term current use of insulin ([facility]) CHANGE SENSOR EVERY 10 DAYS 3 each 03/01/20 24 Active tirzepatide (MOUNJARO) 2.5 MG/0.5ML injectionIndicatio ns:Diabetes Mellitus Inject 2.5 mg into the skin every 7 days. Indications: Diabetes 2 mL 05/31/19 25 Active tirzepatide (MOUNJARO) 5 MG/0.5ML injectionIndicatio ns:Diabetes Mellitus Inject 5 mg into the skin every 7 days. Indications: Diabetes 2 mL 5 05/31/19 25 Active metFORMIN ER (GLUCOPHAGE-XR) 500 MG 24 hr tabletIndications: Type 2 diabetes mellitus with hyperglycemia, with long-term current use of insulin ([facility]) Take 1 tablet (500 mg total) by mouth daily with supper. 90 tablet 1 05/31/19 25 Active Active Problems Problem Noted Date Diagnosed Date Diabetic neuropathy associat ed with type 2 diabetes mellitus ([facility]) 10/29/2020 Lumbar degenerative disc disease 05/23/2019 Essential hypertension 07/21/2018 TRACY (obstructive sleep apnea) 09/14/2016 Thrombocytopenia 09/14/2016 Esophageal varices ([facility]) 09/09/2016 Hepatic encephalopathy ([facility]) 017 Type 2 diabetes mellitus wit h hyperglycemia, with long-term current use of insulin ([facility]) 09/09/2016 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 s/p TIPS in 2015. -RUQ today showing TIPS with slower velocity compared to 08/2017 but still patent, rec close FU. -rifaximin -holding lactulose for diarrhea -should have BB outpt Resolved Problems Problem Noted Date Diagnosed Date Resolved Date Bacterial endocarditis ([facility]) 05/14/2020 06/05/2024 BLAND (nonalcoholic steatohepatitis) 07/21/2018 04/05/2019 Diabetes mellitus, type 2 ([facility]) 02/02/2018 06/05/2024 Morbid obesity ([facility]) 12/09/2016 06/05/2024 History of upper gastrointestinal hemorrhage 6 04/05/2019 Encounters Date Type Department Care Team Description 05/31/2024 12:00 PM FUR MIXER OPERATOR Office Visit [facility] Diabetes and Endocrinology - [address] [phone] Eva Power MD Type 2 Diabetes 05/31/2024 Travel 05/10/2024 Telephone [facility] Diabetes and Endocrinology - [address] [phone] Eva Power MD Called To Cancel Office Appt. 03/30/2024 Telephone [facility] Diabetes and Endocrinology - [address] [phone] Eva Power MD Reschedule from Last 3 Months Family History Medical History Relation Comments Throat cancer Father Ovarian Cancer Mother Diabetes Sister Relation Status Comments Father Mother Sister Social History Tobacco Use Types Packs/Day Years Used Date Smoking Tobacco: Former Cigarettes Q uit: 2000 Smokeless Tobacco: Never Tobacco Cessation:Counseling Given: [...] Sign Reading Time Taken Comments Blood Pressure 134/77 05/31/2024 8:59 AM FUR MIXER OPERATOR Pulse 84 05/31/2024 8:47 AM FUR MIXER OPERATOR Temperature 36.8 ??C (98.3 ??F) 02/15/2024 1:54 PM CD T Respiratory Rate 11 01/23/2024 12:30 AM CDT Oxygen Saturation 96% 05/31/2024 8:47 AM FUR MIXER OPERATOR Inhaled Oxygen Concentration - - Weight 100.2 kg (221 lb) 02/15/2024 1:54 PM CDT Height 172.7 cm (5' 8 ) 05/31/2024 8:47 AM FUR MIXER OPERATOR Body Mass Index 33.6 02/15/2024 1:54 PM CDT Plan of Treatment Upcoming Encounters Date Type Department Care Team (Late st Contact Info) Description 08/30/2024 12:00 PM CDT Office Visit [facility] Diabetes and Endocrinology - [place] [address] [place] [address] Eva Power MD [address] [place], [place] [id number] Health Maintenance Due Date Last Done Comments Colorectal Cancer Screening Colonoscopy (10 Years) 1970 Lipid Panel 1970 Annual Physical 1973 [...] 2024 12/29/2020, 12/08/2020 Influenza Adult (#1) 2024 PHQ-2 (Physician [place]) 05/04/2024 02/15/2024 Hemoglobin A1C 08/29/2024 05/31/2024, 11/02, 05/20/2023, Additional history exists Kidney Health Evaluation 05/31/2025 05/31/2024 Hepatitis C Completed 12/29/2023, 12/29/2023 Meningococcal B Vaccine Aged Out No l onger eligible based on patient's age to complete this topic Meningococcal Vaccine Aged Out No marcia rusty eligible based on patient's age to complete this topic RSV Immunizations Under 20 Months Aged Out No longer eligible based on patient's age to complete this topic Medical Devices Implanted Type Area Insurance Verification Specialist Device Identifier Shelf Expiration Date Model / Serial / Lot [employer] Stent-01/02/2021 Implanted: 021 (Quantity not on file) Stent Abdomen [employer] R BARD [id number] / / Description:Non-clinical silvia ting demonstrated that [...] of 720 Gauss/cm or less ?? Maximum [id number] specific absorption rate (IVANA) of 2-W/kg for 15 minutes of scanning for patient landmarks above the umbilicus. ?? Maximum WB-IVANA of 1 W/kg for 15 min. of scanning for patient landmarks below the umbilicus. Procedures Procedure Name Priority Date/Time Associated Diagnosis Comments ALBUMIN URINE RANDOM W/CREATININE Routine 05/31/2024 10:36 AM FUR MIXER OPERATOR Type 2 diabetes mellitus with hyperglycemia, with long-term current use of insulin ([facility]) COLLECT.CAPILLARY (FNGR,HEEL,EAR) Routine 05/31/2024 8:47 AM FUR MIXER OPERATOR Type 2 diabetes mellitus with hyperglycemia, with long-term current use of insulin ([facility]) GLUCOSE BLOOD, MONITOR DEVICE Routine 05/31/2024 Type 2 diabetes mellitus with hyperglycemia, with long-term current use of insulin ([facility]) HEMOGLOBIN, GLYCOSYLATED Routine 05/31/2024 Type 2 diabetes mellitus with hyperglycemia, with long-term current use of insulin ([facility]) from Last 3 Months Results * ALBUMIN/CREATININE RATIO, RANDOM URINE (05/31/2024 10:36 AM FUR MIXER OPERATOR) MICROALBUMIN (U) 10.4 <20 MG/L 05/31/19 7:37 PM FUR MIXER OPERATOR [facility] CREATININE RANDOM (U) 47.4 MG/DL 05/31/2024 7:37 PM FUR MIXER OPERATOR [facility] ALBUMIN/CREAT RATIO 21.9 <30 MG/G 05/31/2024 7:37 PM FUR MIXER OPERATOR [facility] URINE SPECIMEN / Unknown 05/31/2024 10:36 AM FUR MIXER OPERATOR us Eva Power MD URINE ORDERABLES Final Result -[facility] [address] [place] [address], * HEMOGLOBIN, GLYCOSYLATED (05/31/2024) HGB A1C 10.3 % [facility]-[address] [place] 05/31/2024 us Eva Power MD LABORATORY Final Result Performing Organization Address City/[facility]/ZIP Co de Phone Number [address], [address] [address], [place] [phone] * (ABNORMAL) GLUCOSE BLOOD, MONITOR DEVICE (05/31/2024) GLUCOSE WHOLE BLOOD 323(A) 70 - 100 mg/dL [address] [place] 05/31/2024 Eva Power MD LABORATORY Final Result Performing Organization Address [facility] de Phone Number [address], [address] [address], [place] [phone] from Last [address] [place] [address] Care Teams Biztalk Architect Relationship Specialty Start Date End Date Braydon Pavno PA [address] [place] [address] PCP - General PHYSICIAN ENGAGEMENT LIAISON 03/02/19
--- OUTSIDE RECORDS SUMMARY | 2024-06-08 07:01 | XMS_ITS | Clinical Summary ---
Author Organization [facility] Address [address] [place] [address] Care Team Providers Care Compliance Assistant Name Role Phone Nacho Rodriguez MD Unavailable [phone] Elian Gross MD Unavailable Braydon Pavon Primary Care Provider [phone] Allergies Active Allergy Reactions Criticality Noted Date [...] 1 each 05/21/19 22 Active Dexcom G6 Ambulatory Care Coordinator misc 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 Use to [...] 2 (two) times a day 02/03/20 Active tirzepatide (Mounjaro) 5 mg/0.5 mL pen injector injection Inject 0.5 mL (5 mg total) under the skin once a week 05/31/19 25 Active ondansetron (ZOFRAN) 4 mg tablet 05/30/19 25 Active metFORMIN XR (GLUCOPHAGE XR) 500 mg 24 hr tablet 05/31/19 25 Active polyethylene glycol (MIRALAX) 17 gram/dose bulk powder Take 17 g by mouth daily Active Active Problems Problem Noted Date Diagnosed Date RUQ abdominal pain 01/20/2024 Encounter for medical examination to establish c are 05/20/2021 Assessment & Plan (05/22/2021 3:58 PM GOLF SALES MANAGER): A initial well visit to establish [...] unless otherwise indicated. Need follow-up arranged with para educator, chocolate finisher Planning on referral to maintenance painter apprentice Will need to check in to the tips follow-up Labs as ordered today, I will direct the A1 c to his chocolate finisher's office. Continuing the current regimen for now. Blood pressure is controlled at this time. We may need to try to get the stress test done as well. Screen for colon cancer 03/01/2021 Overview (03/01/2021): Added automatically from request for surgery [id number] Diabetic neuropathy associat ed with type 2 diabetes mellitus (CMS/HCC) 10/29/2020 Assessment & Plan (10/29/2020 4:23 PM CDT): Chronic, worsening Start, gabapentin therapy Work on better diabetic control Vitamin D deficiency 10/29/2020 Assessment & Plan (10/29/2020 4:23 PM CDT): Check labs and based on that for the plans Bacterial endocarditis 05/14/2020 Assessment & Plan (05/14/2020 11:09 AM GOLF SALES MANAGER): Unfortunately the patient's records from [place] are not available for my review. We [...] 05/14/2020 Assessment & Plan (05/14/2020 11:11 AM GOLF SALES MANAGER): The patient's dyspnea on exertion is [...] - follow up in 6 weeks with LOCAL COMPANY TANKER DRIVER Chelsea Driscoll ( to discuss about insulin [...] resume home regimen and follow-up with home chocolate finisher RUQ pain 10/11/2017 Morbid obesity 12/09/2016 TRACY (obstructive [...] Encounters Date Type Department Care Team Description 06/02/2024 8:55 AM GOLF SALES MANAGER Lab [facility] ([facility]) [address] [place] [id number] Hepatic cirrhosis, unspecified hepatic cirrhosis type, unspecified whether ascites present (HCC) 06/02/2024 8:00 AM GOLF SALES MANAGER Office Visit [facility] [address] [place] [address] [address] [place] [address] [place] [address] Nilton Whatley MD Hepatic cirrhosis, unspecified hepatic cirrhosis type, unspecified whether ascites present (HCC) from Last 3 Months Immunizations Name Administration [...] on file Legal Sex Male 2:52 PM GOLF SALES MANAGER Gender Identity Male 10/29/2020 12:37 PM CDT Sexual Orientation Straight 10/29/2020 12 :37 PM CDT Obstetrics History Last Filed Vital Signs Vital Sign Reading Time Taken Comments Blood Pressure 117/76 06/02/2024 7:36 AM GOLF SALES MANAGER Pulse 88 06/02/2024 7:36 AM GOLF SALES MANAGER Temperature 36.7 ??C (98.1 ??F) 06/02/2024 7:36 AM CS T Respiratory Rate 17 01/20/2024 12:0 0 PM CDT Oxygen Saturation 92% 06/02/2024 7:36 AM GOLF SALES MANAGER Inhaled Oxygen Concentration - - Weight 103.1 kg (227 lb 6.4 oz) 06/02/2024 7:36 AM GOLF SALES MANAGER Height 172.7 cm (5' 8 ) 11/23/2023 7:53 AM CDT Body Mass Index 34.58 11/23/2023 7:53 AM CDT Plan of Treatment [...] Panel 05/20/2022 05/20/2021, 08/03, 11/07/2015 Covid-19 Vaccine (2023-2 5 season) 2024 12/29/2020, 12/08/2020 Influenza Vaccine (#1) 2024 Hemoglobin A1C 05/25/2024 11/23/2023, 11/02, 05/20/2021, Additional history exists eGFR 06/02/2025 06/02/2024, 01/02, 11/23/2023, Additional history exists Colon Cancer Screening-Colonoscopy 12/17/20302020 Hepatitis C Screening Completed 08/23/2015 Medical Devices Implanted Type Area Lockstitch Waistband Setter Device Identifier Shelf Expiration Date Model / Serial / Lot [employer] [id number] Lifestar 14mm 60mm 80cm Stent Biliary - [id number] Implanted:Qty: 1 on 01/10/2021 at [facility] [employer] 09/15/2023 [id number] / / [id number] Procedures Procedure Name Priority Date/Time Associated Diagnosis Comments EGFR Routine 06/02/2024 8:48 AM GOLF SALES MANAGER Hepatic cirrhosis, unspecified hepatic cirrhosis type, unspecified whether ascites present (HCC) COMPREHENSIVE METABOLIC PANEL Routine 06/02/2024 8:48 AM GOLF SALES MANAGER Hepatic cirrhosis, unspecified hepatic cirrhosis type, unspecified whether ascites present (HCC) PROTIME-INR Routine 06/02/2024 8:48 AM GOLF SALES MANAGER Hepatic cirrhosis, unspecified hepatic cirrhosis type, unspecified whether ascites present (HCC) [id number], TUMOR MARKER Routine 06/02/2024 8:48 AM GOLF SALES MANAGER Hepatic cirrhosis, unspecified hepatic cirrhosis type, unspecified whether ascites present (HCC) BILIRUBIN, DIRECT Routine 06/02/2024 8:4 8 AM GOLF SALES MANAGER Hepatic cirrhosis, unspecified hepatic cirrhosis type, unspecified whether ascites present (HCC) HEMOGLOBIN A1C STAT 11/23/2023 8:40 AM CDT LIPID PANEL Routine 05/20/2021 9:36 AM GOLF SALES MANAGER Morbid obesity with body mass index (BMI) of 40.0 to 44.9 in adult (HCC) ALBUMIN CREATININE RATIO, URINE Routine 05/20/2021 9:36 AM GOLF SALES MANAGER Diabetic neuropathy associated with type 2 diabetes mellitus (CMS/HCC) (HCC) COLONOSCOPY 12/17/2020 10:24 AM CDT SERUM HEPATITIS PANEL Routine 08/23/2015 5:23 PM CDT from Last 3 Months or Most Recently Relevant to Health Maintenance Results * eGFR (06/02/2024 8:48 AM GOLF SALES MANAGER) eGFR >90 >=60 mL/min/1. 73 m2 Comment: [...] interpretive data was last reviewed 2021. Blood 06/02/2024 8:48 AM GOLF SALES MANAGER 06/02/2024 9:05 AM GOLF SALES MANAGER us Nilton Whatley MD LAB BLOOD ORDERABLES Final Result Performing Organization Address City/State/[facility] Co n[place] Phone Number [facility] Department [place] [address] * [id number], Tumor Marker (06/02/2024 8:48 AM GOLF SALES MANAGER) alpha Fetoprotein <2.0 <=8.3 ng/mL Comment: Interpretive Data The Crispin AFP assay procedure was used. Results from different manufacturers or methods may not be comparable. Serial testing should be performed using the same method. 0-1 ??month. ?? AFP concentrations may reach or exceed 100,000 ng/mL after depending on gestational age and weight. 1-3 months ? 50 ? 1000 ng/ml 3-6 months ? 10 ? 500 ng/ml 6-12 months ?3.0 ? 100 ng/ml >1 year ?0.0 ? 8.3 ng/ml References Abbi Renner et al. ??J. Ped Surg 1978;13:155-156 Bruno Mathur. et al. Clin Chem Lab Med 2018;57:783-797 Jeyson Sanches et al. ??Clin Chem 2014;6217-6371. Current interpretive data was last revised 2022. Blood 06/02/2024 8:48 AM GOLF SALES MANAGER 06/02/2024 9:00 AM GOLF SALES MANAGER Nilton Whatley MD LAB BLOOD ORDERABLES Final Result Performing Organization Address [facility] Co de Phone Number [facility] [place] [address] * (ABNORMAL) Protime-INR (06/02/2024 8:48 AM GOLF SALES MANAGER) PT 13.5(H) 9.7 - 13.0 sec INR 1.24(H) 0.90 - 1.20 [facility] Comment: Interpretive data Oral anticoagulant therapeutic ranges: Venous thromboembolism prophylaxis or treatment: 2.0-3.0 CARDIOLOGY Standard range: 2.0-3.0 High-intensity range: 2.5-3.5 Refer to indication-specific guidelines for appropriate target ranges for prosthetic heart valve replacement. Current interpretive data was last revised on 2019. Blood 06/02/2024 8:48 AM GOLF SALES MANAGER 06/02/2024 9:00 AM GOLF SALES MANAGER Nilton Whatley MD LAB BLOOD ORDERABLES Final Result Performing Organization Address [facility] Co de Phone Number [facility] Department [place] [address] * (ABNORMAL) Bilirubin, direct (06/02/2024 8:48 AM GOLF SALES MANAGER) Bilirubin, direct 0.6(H) 0.1 - 0.3 mg/dL Comment:Hemolyzed; result ma y be falsely decreased Blood 06/02/2024 8:48 AM GOLF SALES MANAGER 06/02/2024 9:00 AM GOLF SALES MANAGER us Nilton Whatley MD LAB BLOOD ORDERABLES Final Result Performing Organization Address City/[facility] Co de Phone Number [facility] Department [place] [address] * (ABNORMAL) Comprehensive metabolic panel (06/02/2024 8:48 AM GOLF SALES MANAGER) Sodium 141 135 - 145 mmol/L Potassium, pl 4.3 3.3 - 4.9 mmol/L [facility] Comment:Hemolyzed; Potassium value may be falsely elevated by as much as 0.3-0.5 mmol/L. Suggest redraw and reanalysis. Chloride 107 97 - 110 mmol/L [facility] CO2 27 22 - 32 mmol/L [facility] Anion gap 7 2 - 15 mmol/L [facility] BUN 13 6 - 25 mg/dL [facility] Creatinine 0.76(L) 0.80 - 1.30 mg/dL [facility] Glucose 242(H) 70 - 199 mg/dL [facility] Comment: Interpretive Data Fasting glucose >/= [...] interpretive data was last revised 2022. Calcium 9.6 8.5 - 10.3 mg/dL [facility] Bilirubin, total 3.0(H) 0.1 - 1.2 mg/dL [facility] Protein, pl 6.9 6.5 - 8.5 g/dL [facility] Albumin 3.8 3.5 - 5.0 g/dL [facility] Alk phos 90 40 - 130 Units/L [facility] ALT 19 7 - 55 Units/L [facility] AST 38 10 - 50 Units/L [facility] Comment:Hemolyzed; result ma y be falsely elevated Blood 06/02/2024 8:48 AM GOLF SALES MANAGER 06/02/2024 9:00 AM GOLF SALES MANAGER Nilton Whatley MD LAB BLOOD ORDERABLES Final Result Performing Organization Address [facility] de Phone Number [facility] Department [place] [address] * (ABNORMAL) Hemoglobin A1c (11/23/2023 8:40 AM CDT) Hgb A1C 10.0(H) 4.0 - 5.6 % Estimated Average Glucose 240 mg/dL [facility] Comment: [...] ORDERABLES Fi nal Result Performing Organization Address [facility] de Phone Number [facility] Department [place] [address] * Albumin Creatinine Ratio, Urine (05/20/2021 9:36 AM GOLF SALES MANAGER) Pathologist [facility] Albumin Ur <12.0 mg/L [facility] Comment: Interpretive Data No reference range established. Current interpretive data was last revised 2018. Creatinine Ur 47.6 mg/dL [facility] Comment: Interpretive Data No reference range established. Current interpretive data was last revised 2018. Albumin Creatinine Ratio, Ur <25 1 - 29 mg/g [facility] Urine 05/20/2021 9:36 AM GOLF SALES MANAGER 05/20/2021 7:41 PM GOLF SALES MANAGER Simon Lundberg MD LAB URINE ORDERABLES Final Result [facility] [id number] Department [place] [address] * (ABNORMAL) Lipid panel (05/20/2021 9:36 AM GOLF SALES MANAGER) Cholesterol 110 30 - 199 mg/dL [...] revised on 2017. Triglycerides 149 <=149 mg/dL [facility] Comment: Interpretive Data Ages < or [...] on 2017. Non-HDL Cholesterol 77 mg/dL [facility] Comment: Interpretive Data Ages < [...] last revised on 2017. Chol/HDL ratio 3 [facility] Blood 05/20/2021 9:36 AM GOLF SALES MANAGER 05/20/2021 7:41 PM GOLF SALES MANAGER us Simon Lundberg MD LAB BLOOD ORDERABLES Final Result [facility] [id number] [facility] Department [place] [address] * COLONOSCOPY (12/17/2020 10:24 AM CDT) Anatomical Region Laterality Modality Other Narrative Procedure Note Elian Gross MD - 12/17/2020 10:24 AM CDT ENDOSCOPY LAB Patient Name: Camilo Curry Procedure Date: 12/17/2020 10:24 AM Date of : 1970 Admit Type: Outpatient Age: 50 Gender: Male Attending MD: Elian Vivar M.D. Room: [facility] ENDOSCOPY ROOM 02 Note Status: Finalized Procedure: [...] the physician, the nurse, the anesthesiologist, the latex dipper and thetechnician in the pre-procedure area in [...] The scope was passed under direct vision.The [id number] was introduced through the anusand advanced to the hepatic flexure. The colonoscopywas performed without difficulty. The patient tolerated the procedure well. The quality of the bowel preparation was unsatisfactory. The quality of the bowel preparation was evaluated using the BBPS([place] Bowel Preparation Scale) with scores of: RightColon [...] to request sample to be sent to [facility] for Hepatitis C Virus (HCV) RNA Detection and Quantitation by Real-Time Reverse Physicist Cryogenics-PCR (RT-PCR). Current interpretive data was last revised [...] Recently Relevant to Health Maintenance Insurance [facility] [facility] [employer] [facility] [employer] [facility] Advance Directives For more information, please contact: [phone] * Full Code (Latest Code Status on [...] 11:57 AM 02/03/2018 5:26 AM Care Teams Compliance Assistant Relationship Specialty Start Date End Date Braydon Pavon PA [address] [place] [address] PCP - General 08/23/21 [place] [id number] [address] [facility] [address] [place] [address] Consulting Physician Endocrinology 05/20/21 [place] [id number] [address] Consulting Physician Internal Medicine 05/20/21
--- OUTSIDE RECORDS SUMMARY | 2024-06-08 07:01 | XMS_ITS | Encounter Summary ---
Author Organization [facility] Healthcare Address [address] [place] [address] Care Team Providers Care Mobile Equipment Servicer Name Role Phone Braydon Pavon Primary Care Provider [phone] Nikolay Lancaster MD Unavailable [phone] Simon Lundberg MD Primary Care Provider [phone] Nacho Rodriguez MD Unavailable [phone] Elian Gross MD Unavailable Braydon Pavon Primary Care Provider [phone] Encounter Details Date Type Department Care Team (Late st Contact Info) Description 09/14/2020 Telephone [facility] [address], [place] [id number] Trice Aldana, RT Social History Tobacco Use [...] on file Legal Sex Male 2:52 PM CONSERVATION EDUCATOR Gender Identity Male 10/29/2020 12:37 PM CDT Sexual Orientation Straight 10/29/2020 12 :37 PM CDT documented as of this encounter Plan of Treatment Not on file documented as of this encounter Visit Diagnoses Not on filedocumented in this encounter Care Teams Mobile Equipment Servicer Relationship Specialty Start Date End Date Braydon Pavon PA [address] [place] [address] PCP - General Family Practice 05/09/20 05/19/21 Simon Lundberg MD [address] [place] [address] PCP - General Family Medicine 05/20/21 08/22/21 Braydon Pavon PA [address] [place] [address] PCP - General 08/23/21 Nikolay Lancaster MD [address] [place] [address] 05/09/20 05/19/21 [place] [id number] [address] [facility] [address], [place] [address] Consulting Physician Endocrinology 05/20/21 [place] [id number] [address] [facility] [address] [place] [address] Consulting Physician Internal Medicine 05/20/21 documented as of this encounter
--- OUTSIDE RECORDS SUMMARY | 2024-06-08 07:01 | XMS_ITS | Patient Health Summary ---
Author Organization [facility] Address [address] [place] [address] Care Team Providers Care Application Project Leader Name Role Phone Braydon Pavon Primary Care Provider [phone] Note from [facility],non-owned Affiliates and Associated Physician Practices is amultiple site organization consisting of ambulatory clinics and hospital sitesin [place], [place], [place] and [place]. This disclosure is being madepursuant to the Care Everywhere program and may not contain all information available regarding this patient. Last updated 18.[facility] Allergies * Aztreonam In Dextrose(Urticaria) [...] as needed for Anxiety * pen needles 09/16 31G X 8 MM [...] Allow tablet to dissolve on the tongue * HYDROcodone-acetaminophen ([place]) 7.5-325 MG tablet Take 1 (one) tablet by mouth every 8 hours as needed * traZODone (Desyrel) 100 MG tablet(Started 02/02/2023) Take 1 (one) tablet by mouth 2 times daily Active Problems Problem Noted Date Diagnosed Date [...] Former Cigarettes 1 15 1 985 - 1999 Smokeless Tobacco: Never Tobacco Cessation:Counseling Given: [...] 102.1 kg (225 lb) 05/18/2024 3:55 PM TOASTER OPERATOR Height 170.2 cm (5' 7 ) 05/18/2024 3:55 PM TOASTER OPERATOR Body Mass Index 35.24 05/18/2024 3:55 PM TOASTER OPERATOR Procedures * SD ED EGD FLEX TRANSORAL DX(Performed 02/12/2024) Performed [...] (transjugular intrahepatic portosystemic shunt), Fatty liver * [id number] BLOOD(Performed 07/14/2023) Performed for Cirrhosis of liver [...] Procedure Code(s): ? --- Professional --- ? 59370, Esophagogastroduo denoscopy, flexible, transoral; diagnostic, ? including collection of specimen(s) by brushing or washing, when ? performed (separate procedure) Diagnosis Code(s): ?--- Professional --- ?I85.00, Esophageal varices without bleeding ?K22.89, Other specified disease of esophagus ?K76.6, Portal hypertension ?K31.89, Other diseases of stomach and duodenum ?K31.7, Polyp of stomach and duodenum CPT copyright 2021 [employer]. All rights reserved. The codes documented in this report are preliminary and upon fountain vending mechanic review may be revised to meet current compliance requirements. Gaby Mistry MD 02/12/2024 2:13:14 PM This report has been signed electronically. Note Initiated On: 02/12/2024 1:40 PM Number of Addenda: 0 ? [facility] ? [address] [place] [address] [facility] 02/12/2024 1:40 PM CDT Gaby Mistry MD GI PROCEDURE ORDERAB LES [facility] * (ABNORMAL) GLUCOSE - POINT OF CARE (02/12/2024 1:17 PM CDT) Only the most recent of2 resultswithin the time period is included. [facility] Glucose WB/POC 277(H) 70 - 115 mg/dL 02/12/2024 1:18 PM CDT [facility] Specimen Type Cap Fingerstick 2023 1:18 PM CDT [facility] Blood BLOOD SPECIMEN / Unknown 02/12/2024 1:17 PM CDT 02/12/2024 1:18 PM CDT Steve Bedolla MD LAB - POINT OF CARE ORDERABLES [address] [address], [place] [phone] * PT-INR [facility] (12/29/2023 1:12 PM CDT) Only the most recent of2 resultswithin the time period is included. [facility] PT 13.9 12.1 - 14.8 Seconds 12/29/2023 2:29 PM CDT [facility] INR 1.1 See Comment 12/29/2023 2:29 [...] Bedolla MD LAB - COAGULATION OR DERABLES [facility] [address] [place] [phone], [place] [phone] * ALPHA FETOPROTEIN BLOOD TUMOR MARKER (12/29/2023 1:12 PM CDT) Only the most recent of2 resultswithin the time period is included. [facility] Alpha-Fetoprote in Tumor Marker 2.2 <=8.3 ng/mL 12/29/2023 2:22 PM CDT [facility] Comment: AFP values will vary depending on testing procedure used. Results are not comparable across different methods. AFP values obtained by [facility] using an Phoenix Alinity Immunoassay. Blood BLOOD SPECIMEN / Unknown Lab Venipuncture / Unknown 12/29/2023 1:12 PM CDT 12/29/2023 1:36 PM CDT Steve Bedolla MD LAB - CHEMISTRY LIONEL WHITT [facility] [address] [place] [phone], [facility] [phone] * (ABNORMAL) CBC WITH DIFFERENTIAL (12/29/2023 1:12 PM CDT) Only the most recent of2 resultswithin the time period is included. [facility] WBC 4.2 4.0 - 10.7 x10E9/L 12/29/2023 1:52 PM [facility] RBC Count 5.58 4.30 - 5.80 x10E12/L 12/29/2023 1:52 PM [facility] Hemoglobin 15.8 13.3 - 17.5 g/dL 12/29/2023 1:52 PM [facility] Hematocrit 44.7 38.7 - 51.1 % 12/29/2023 1:52 PM [facility] MCV 80.1 80.0 - 98.0 fL 12/29/2023 1:52 PM [facility] MCH 28.3 26.7 - 33.6 pg 12/29/2023 1:52 PM [facility] MCHC 35.3 31.7 - 36.3 g/dL 12/29/2023 1:52 PM [facility] RDW-CV 18.2(H) 11.3 - 14.8 % 12/29/2023 1:52 PM [facility] Platelet Count 84(L) 150 - 420 x10E9/L 12/29/2023 1:52 PM [facility] MPV 10.0 7.8 - 11.4 fL 12/29/2023 1:52 PM [facility] Neutrophil % 68.4 41.0 - 74.0 % 12/29/2023 1:52 PM [facility] Lymphocyte % 17.5 17.0 - 47.0 % 12/29/2023 1:52 PM [facility] Monocyte % 9.2 3.0 - 11.0 % 12/29/2023 1:52 PM [facility] Eosinophil % 3.5 0.0 - 7.0 % 12/29/2023 1:52 PM [facility] Basophil % 1.2 0.0 - 1.6 % 12/29/2023 1:52 PM [facility] Immature Granulocytes % 0.2 0.0 - 1.0 % 12/29/2023 1:52 PM [facility] Neutrophil Absolute 2.89 1.60 - 7.50 x10E9/L 12/29/2023 1:52 PM [facility] Lymphocyte Absolute 0.74(L) 1.00 - 4.40 x10E9/L 12/29/2023 1:52 PM [facility] Monocyte Absolute 0.39 0.15 - 1.00 x10E9/L 12/29/2023 1:52 PM [facility] Eosinophil Absolute 0.15 0.00 - 0.60 x10E9/L 12/29/2023 1:52 PM [facility] Basophil Absolute 0.05 0.00 - 0.13 x10E9/L 12/29/2023 1:52 PM [facility] Blood BLOOD SPECIMEN / Unknown Lab Venipuncture / Unknown 12/29/2023 1:12 PM CDT 12/29/2023 1:36 PM T Steve Bedolla MD LAB - HEMATOLOGY ORD ERABLES [facility] [address] [place] [address], [facility] [phone] * (ABNORMAL) COMPREHENSIVE METABOLIC PANEL (12/29/2023 1:12 PM [facility]) Only the most recent of2 resultswithin the time period is included. BUN 13 7 - 26 mg/dL 12/29/2023 2:07 PM [facility] Creatinine 0.73 0.71 - 1.16 mg/dL 12/29/2023 2:07 PM [facility] Sodium 138 136 - 145 [...] 1.1 - 2.3 12/29/2023 2:07 PM CDT [facility] eGFR by CKD-EPI >90 >=90 mL/min/1.7 3 m2 12/29/2023 2:07 PM CDT [facility] Blood BLOOD SPECIMEN / Unknown Lab Venipuncture / Unknown 12/29/2023 1:12 PM CDT 12/29/2023 1:37 PM CDT Steve Bedolla MD LAB - CHEMISTRY LIONEL WHITT Performing Organization Address [facility] Co de Phone Number [facility] [address] [place] [phone], [employer] [phone] * HEPATITIS B SURFACE ANTIBODY (12/29/2023 1:12 [...] - CHEMISTRY LIONEL WHITT Performing Organization Address [facility]/ZIP Co de Phone Number [facility] [address] [place] [address], [place] [phone] * BILIRUBIN DIRECT (12/29/2023 1:12 PM CDT) Only the most recent of2 resultswithin the time period is included. Pathologist [facility] Bilirubin Conjugated 0.5 0.1 - 0.5 mg/dL 12/29/2023 2:07 PM CDT [facility] Blood BLOOD SPECIMEN / Unknown Lab Venipuncture / Unknown 12/29/2023 1:12 PM CDT 12/29/2023 1:37 PM CDT Steve Bedolla MD LAB - CHEMISTRY LIONEL WHITT Performing Organization Address City/[facility]/ZIP Co de Phone Number [facility] [address] [address], [facility] [phone] * HEPATITIS A ANTIBODY (12/29/2023 1:12 PM CDT) Pathologist [facility] Hepatitis A Virus Antibody Total Negative Negative 12/31/2023 8:56 AM CDT [employer] ([facility]) Comment: Performed By: [employer] [address] [place] [address] Loss Prevention Agent: Benny Desai MD, PhD CLIA Number: [id number] Blood BLOOD SPECIMEN / Unknown Lab Venipuncture / Unknown 12/29/2023 1:12 PM CDT 12/29/2023 1:26 PM CDT Steve Bedolla MD LAB - CHEMISTRY LIONEL WHITT Performing Organization Address City/[facility]/ZIP Co de Phone Number [employer] ([facility]) [address] [place] [address], [facility] * US TIPS W ABDOMEN LIMITED (07/24/2023 [...] Detected None Detected 07/16/2023 10:11 PM CDT [facility] [employer] ([facility]) Comment: If suspicion of connective tissue disease is strong and NILE EIA is negative, consider testing for NILE by IFA ([id number]). INTERPRETIVE INFORMATION: Anti-Nuclear Antibodies (NILE), IgG by RAMOS Antinuclear Antibodies (NILE), IgG by RAMOS: NILE specimens are screened using enzyme-linked immunosorbent assay (RMAOS) methodology. All RAMOS results reported as Detected are further tested by indirect fluorescent assay (IFA) using HEp-2 substrate with an IgG-specific conjugate. The NILE RAMOS screen is designed to detect antibodies against dsDNA, histones, SS-A (Ro), SS-B (La), Mclean, Mclean/SPRING ENCASER, Scl-70, Evelina-1, centromeric proteins, other antigens extracted from the HEp-2 cell nucleus. NILE RAMOS assays have been reported to have lower sensitivities than NILE IFA for systemic autoimmune rheumatic diseases (SARD). Negative results do not necessarily rule out SARD. Performed By: [facility] [address] Loss Prevention Agent: Benny Desai MD, PhD CLIA Number: [id number] Blood BLOOD SPECIMEN / Unknown Lab Venipuncture / Unknown 07/14/2023 4:58 PM CDT 07/14/2023 5:15 PM CDT Steve Bedolla MD LAB - CHEMISTRY LIONEL WHITT Performing Organization Address City/[facility]/ZIP Co de Phone Number [facility] ([facility]) [address] [place] [phone], [facility] * [id number] BLOOD (07/14/2023 4:58 PM CDT) Pathologist [facility] Ayaxe-9-Mcdvcs ypsin 182 90 - 200 mg/dL 07/14/2023 5:40 PM CDT [facility] Blood BLOOD SPECIMEN / Unknown Lab Venipuncture / Unknown 07/14/2023 4:58 PM CDT 07/14/2023 5:15 PM CDT Steve Bedolla MD LAB - CHEMISTRY LIONEL WHITT [address] [address], [facility] [phone] * IRON + TRANSFERRIN PANEL (07/14/2023 4:58 PM CDT) Pathologist [facility] Iron 118 50 - 175 ug/dL 07/14/2023 [...] - CHEMISTRY LIONEL WHITT Performing Organization Address City/[facility]/ZIP Co de Phone Number [address] [address], [place] [phone] * FERRITIN (07/14/2023 4:58 PM CDT) Ferritin 71 22 - 275 ng/mL 07/14/2023 5:58 PM CDT [facility] Blood BLOOD SPECIMEN / Unknown Lab Venipuncture / Unknown 07/14/2023 4:58 PM CDT 07/14/2023 5:15 PM CDT Steve Bedolla MD LAB - CHEMISTRY LIONEL WHITT Performing Organization Address City/[facility]/ZIP Co de Phone Number [address] [address], [place] [phone] * CULTURE URINE (10/04/2018 2:34 PM CDT) Culture Urine 10,000-50,000 CFU/mL urogenital jc JUANCARLOS 10/06/2018 10:31 AM CDT [facility] Urine URINE SPECIMEN OBTAINED BY CLEAN CATCH PROCEDURE / Unknown Collection / Unknown 10/04/2018 2:34 PM CDT 10/04/2018 8:11 PM CDT Trice Blankenship APRN-SAFETY SPECIALIST LAB - MICROBIOLO GY ORDERABLES [facility] [address] [place] [address], [facility] [phone] * URINALYSIS AUTO - POINT OF CARE (AMB) [facility] (10/04/2018 1:23 PM CDT) Glucose UA 3 Bilirubin UA POCT neg Ketones UA POCT trace Specific [place] UA 1.020 Blood Urine POCT neg pH UA 6.0 Protein UA neg Urobilinogen UA 1 Nitrite UA neg WBC UA neg Urine URINE / Unknown 10/04/2018 1 :23 PM CDT Trice Blankenship APRN-SAFETY SPECIALIST LAB - POINT OF C ARE ORDERABLES * LAB RESULTS ORDER (06/28/2018 9:29 AM TOASTER OPERATOR) Only the most recent of2 resultswithin the time period is included. Narrative 06/28/2018 9:29 AM TOASTER OPERATOR Ordered by an unspecified provider. Scanned Document [...] 06/25/2018 Historical Provider LAB - CHEMISTRY O JONATHANERABLES * LIPID PROFILE (EXTERAL RESULT ENTRY) (06/25/2018) [...] OF CARE (AMB) [facility] (05/24/2018 8:30 AM TOASTER OPERATOR) Only the most recent of2 resultswithin the time period is included. Hemoglobin A1c POCT 8.2 BLOOD SPECIMEN / Unknown 05/24/2018 8:30 AM TOASTER OPERATOR Edmond Choi MD LAB - POINT OF CARE ORDERABLES Care Teams Application Project Leader Relationship Specialty Start Date End Date Braydon Pavon PA [address] [place] [address] PCP - General Physician Communications Specialist 07/14/23
--- OUTSIDE RECORDS SUMMARY | 2024-06-08 07:01 | XMS_ITS | Data Portability ---
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 Plan of Treatment Reminders Order Date Submit Date Provider Last Modified By Organization Details Last Modified Time Details Appointments None recorded. Lab urinalysis, dipstick 2023 024 SEDAN In-Office Order, Internal Use Only DO Not Attach Compendium DO Not Attach Compendium, Do Not Delete/merge, [id number] 10:17:29 Referral endocrinolo gy referral 2023 024 MICKEY Power MD, [address] [place], [address], 4 09:49:31 hepatologis t referral 2023 024 MICKEY Whatley MD, [address], [address], 5 10:18:35 Procedures None recorded. Surgeries None recorded. Imaging MRI, lumbar spine, w/o contrast 2023 024 [facility], [address] [place], [address], 4 07:55:02 Medication Orders None recorded. Patient TargetsNo targets recorded. Patient Instructions Encounter Date Encounter Id Patient Instructions Last Modified By Organization Details Last Modified Time 01/26/2024 [id number] A healthy lifestyle: care instructions jnanney Not available 01/26/2024 11:30:21 learning about type 2 diabetes jnanney Not available 01/26/2024 11:24:47 type 2 diabetes: care instructions jnanney Not available 01/26/2024 11:24:47 cirrhosis: care instructions jnanney Not available 01/26/2024 11:24:47 liver disease diet: care instructions jnanney Not available 01/26/2024 11:24:47 03/03/2024 [id number] A healthy lifestyle: care instructions jnanney Not available 03/03/2024 11:27:32 03/08/2024 [id number] A healthy lifestyle: care instructions jnanney Not available 03/08/2024 15:26:42 type 2 diabetes: care instructions jnanney Not available 03/08/2024 15:26:42 03/23/2024 [id number] A healthy lifestyle: care instructions jnanney Not available 03/23/2024 11:17:48 type 2 diabetes: care instructions jnanney Not available 03/23/2024 11:17:48 04/06/2024 [id number] painful urinatio n (dysuria): care instructions jnanney Not available 04/06/2024 10:11:20 When You Want to Lose Weight: Care Instructions jnanney Not available 04/06/2024 10:27:46 type 2 diabetes: care instructions jnanney Not available 04/06/2024 10:27:46 Reason for Referral Endocrinology Referral for T ype 2 diabetes mellitus Referring Physician: Janeth Pavon [facility], Encounter Date: 01/26/2024 Brick Burner Referral for Ci rrhosis of liver Referring Physician: Janeth Pavon [facility], Encounter Date: 01/26/2024 Results Created Date Observation Date Name Description Value Unit Range Abnormal Flag Note LastModifiedBy Organization Detail LastModifiedTime 01/14/2001/14/2024 drug scree n, urine Methamphetam ine Negati ve Not Available In-Office Order Internal Use Only DO Not Attach Compendium DO Not Attach Compendium, Do Not Delete/merge, [id number] 01/14/2024 09:08:26 01/14/20 24 01/14/2024 drug scree [...] 01/14/20 24 01/14/2024 drug scree n, urine Oxycodone (Oxy) Negati [...] DO Not Attach Compendium, Do Not Delete/merge, [id number] 04/06/2024 10:08:18 04/06/20 24 04/06/2024 urina lysis , dipst ick Nitrite negati ve Not Available In-Office Order Internal Use Only DO Not Attach Compendium DO Not Attach Compendium, Do Not Delete/merge, [id number] 04/06/2024 10:08:18 04/06/20 24 04/06/2024 urina lysis [...] DO Not Attach Compendium, Do Not Delete/merge, [id number] 04/06/2024 10:08:18 04/06/20 24 04/06/2024 urina lysis , dipst ick Blood Negati ve Not Available In-Office Order Internal Use Only DO Not Attach Compendium DO Not Attach Compendium, Do Not Delete/merge, [id number] 04/06/2024 10:08:18 04/06/20 24 04/06/2024 urina lysis , dipst ick Specific [place] 1.015 Not Available In-Off ice Order Internal Use Only DO Not Attach Compendium DO Not Attach Compendium, Do Not Delete/merge, [id number] 04/06/2024 10:08:18 04/06/20 24 04/06/2024 urina lysis , dipst ick Ketone Trace Not Available In-Office Order Internal Use Only DO Not Attach Compendium DO Not Attach Compendium, Do Not Delete/merge, [id number] 04/06/2024 10:08:18 04/06/20 24 04/06/2024 urina lysis , dipst ick Bilirubin Negati ve Not Available In-Office Order Internal Use Only DO Not Attach Compendium DO Not Attach Compendium, Do Not Delete/merge, [id number] 04/06/2024 10:08:18 04/06/20 24 04/06/2024 urina lysis , dipst ick Glucose 1000 Not Available In-Office Order Internal Use Only DO Not Attach Compendium DO Not Attach Compendium, Do Not Delete/merge, [id number] 04/06/2024 10:08:18 04/06/20 24 04/06/2024 urina lysis , dipst ick Appearance Clear Not Available In-Offi ce Order Internal Use Only DO Not Attach Compendium DO Not Attach Compendium, Do Not Delete/merge, [id number] 04/06/2024 10:08:18 04/06/20 24 04/06/2024 urina lysis , dipst ick Color Yellow Not Available In-Office Order Internal Use Only DO Not Attach Compendium DO Not Attach Compendium, Do Not Delete/merge, [id number] 04/06/2024 10:08:18 01/14/20 24 01/14/2024 XR, chest No observ ation record ed. [facility] [address] [place], [address], 01/14/2024 11:28:00 01/23/20 24 01/23/2024 CT, abdom en + pelvi s, w/ contr ast No observ ation record ed. [facility] [address] [place], [address], 01/25/2024 08:58:30 02/24/20 24 02/23/2024 XR, abdom en No observ ation record ed. [facility] [address] [place], [address], 02/24/2024 08:59:19 04/17/20 24 04/16/2024 MRI, lumba r spine , w/o contr ast No observ ation record ed. MICKYE [facility] [address] [place], [address], 04/18/2024 12:31:37 Result Notes None recorded. Problems Name Problem SNOMED Code Status Onset Date Resolution Date Notes Provider Name and Address Organization Details Recorded Time Diabetes mellitus 72463259 Active 2018 Amanda Amin [place], [place] [facility] 1 10:51:15 Liver finding 800843201 Active 2018 Amanda Amin [place] [facility] 1 10:51:15 Hyperglycem ia due to type 2 diabetes mellitus 8500365868839 09 Active Amanda Amin [place] [facility] 4 09:09:59 Type 2 diabetes mellitus in obese 68131233 Active Amanda Amin [place] [facility] 1 10:51:15 Bacteremia 5797708 Active [place] [facility] 10:51:15 Gastroesoph ageal reflux disease 011668430 Active Amanda Amin [place] [facility] 1 10:51:15 Abscess 882940280 Active Amanda Amin [place] [facility] 10:51:15 Backache 071875437 Active Amanda [place] [facility] 10:51:15 Hepatic failure 37908605 Active Amanda Amin [place] [facility] 10:51:15 Problem Notes None recorded. Procedures Surgical History Date Name Laterality Status Provider Name and Address Organization Details Recorded Time 6 colonoscopy completed Amanda Amin [place] [facility] 11/15/2021 15:39:15 Imaging Results Imaging Date Name Status LastModified by Organiz ation Details LastModified Time 01/14/2024 XR, chest completed [email or web address] [facility] [address] [place], [address], 01/14/2024 11:28:00 01/23/2024 CT, abdomen + pelvis, w/ contrast completed [facility] [address] [place], [address], 01/25/2024 08:58:30 02/23/2024 XR, abdomen completed [facility] [address] [place], [address], 02/24/2024 08:59:19 04/16/2024 MRI, lumbar spine, w/o contrast completed [facility] [address] [place], [address], 04/18/2024 12:31:37 Procedure Notes None recorded. Medical Equipment None Reported. Allergies Allergen ID Allergen Name Allergen Category Reaction Reaction Severity Criticality Documentation Date Start Date Code Code System Note Provider Name and Address Organization Details Recorded Time 780664 Product containin g penicilli n and antibioti c (product) medicatio n Not available Not available Not available 12/16/2017 52799 05 SNOMED Not Available Not Available Not Available 251596 Substance with sulfonami de structure and antibacte rial mechanism of action (substanc e) medicatio n Not available Not available Not available 12/16/2017 40926 8003 SNOMED Not Available Not Available Not Available 062919 Nexium medicatio n Not available Not available Not available 12/16/2017 97526 9 RxNorm Not Available Not Available Not Available 239258 erythromy roxana medicatio n Not available Not available Not available 12/16/2017 4053 RxNorm Not Available Not Available Not Available 358770 Iodinated contrast media (substanc e) medicatio n Not available Not available Not available 12/16/2017 24596 2004 SNOMED Not Available Not Available Not Available 902372 ciproflox acin medicatio n Not available Not available Not available 12/16/2017 2551 RxNorm Not Available Not Available Not Available 302363 Azactam medicatio n Not available Not available Not available 12/16/2017 77926 1 RxNorm Not Available Not Available Not Available 422033 aztreonam medicatio n Not available Not available Not available 12/16/2017 1272 RxNorm Not Available Not Available Not Available 927106 octreotid e Not available Not available Not available Not available 12/16/2017 7617 RxNorm Not Available Not Available Not Available 047768 duloxetin e medicatio n Not available Not available Not available 12/16/2017 12907 RxNorm Not Available Not Available Not Available 369691 oxycodone medicatio n other Not available Not available 03/19/2021 7804 RxNorm MENTA L STATU S Not Available Not Available Not Available Medications Name Sig Start Date Stop Date [...] TABLET BY MOUTH 3 TIMES A DAY 2024 active Not Available Not Available Not [...] TABLET BY MOUTH TWICE A DAY NEEDED 2024 active Not Available Not Available Not [...] ONE TABLET BY MOUTH TWICE A DAY 2024 active Not Available Not Available Not Avai lable amitriptyli ne 25 mg tablet Take 1 [...] completed Not Available Not Available Not Available Sigma Force Ultra Test strips USE FOR TESTING BEFORE [...] Updated DateTime 4 171.45 cm 34.3 kg/m2 006988. 51 g 98 % 98 % 92 /min 117 mm[Hg] 78 mm[Hg] Karina Alvarez [facility] 4 10:58:53 Date Recorded Body height Body mass index (BMI) Body weight Oxygen saturation Oxygen saturation in Arterial blood by Pulse oximetry Heart rate Systolic blood pressure Diastolic blood pressure Provider Name and Address Organization Details Last Updated DateTime 4 171.45 cm 34.6 kg/m2 278334. 69 g 96 % 96 % 108 /min 121 mm[Hg] 81 mm[Hg] Karina Alvarez MA [facility] 4 11:08:58 Date Recorded Body height Body mass index (BMI) Body weight Oxygen saturation Oxygen saturation in Arterial blood by Pulse oximetry Heart rate Systolic blood pressure Diastolic blood pressure Provider Name and Address Organization Details Last Updated DateTime 4 171.45 cm 34.9 kg/m2 271082. 28 g 95 % 95 % 94 /min 139 mm[Hg] 80 mm[Hg] Karina Alvarez MA [facility] 4 14:55:26 Date Recorded Body height Body mass index (BMI) Body weight Oxygen saturation Oxygen saturation in Arterial blood by Pulse oximetry Heart rate Systolic blood pressure Diastolic blood pressure Provider Name and Address Organization Details Last Updated DateTime 4 171.45 cm 35 kg/m2 633391. 47 g 97 % 97 % 97 /min 128 mm[Hg] 81 mm[Hg] Karina Alvarez MA [facility] 4 10:54:27 Date Recorded Body height Body mass index (BMI) Body weight Oxygen saturation Oxygen saturation in Arterial blood by Pulse oximetry Heart rate Systolic blood pressure Diastolic blood pressure Provider Name and Address Organization Details Last Updated DateTime 4 171.45 cm 34.5 kg/m2 014942. 9 g 95 % 95 % 102 /min 149 mm[Hg] 91 mm[Hg] Karina Alvarez MA [facility] 4 10:09:39 Social History Question Answer Notes LastModified by Organizat ion Details LastModified Time Tobacco Smoking Status Former Smoker Julia Guerrier MA null, [facility] 12/16/2017 12:02:47 What Is Your Level Of [...] Anxious, Or Unable To Sleep At Night)? [id number] [email or web address] Information not available 08/21/2021 Do You [...] Skin Problems N Anemia N Heart Attack (MS) N Anxiety Disorder Y Diabetes Y Muscle, [...] dose 12/08/2020 completed Not Available [facility] 4 10:49:05 COVID-19, mRNA, LNP-S, PF, 30 mcg/0.3 mL dose 12/29/2020 completed Not Available [facility] 4 10:49:05 Hep A-Hep B 09/10/2015 completed Amanda Amin MA [place], [place] - [facility] 07/20/2023 09:11:13 Past Encounters Encounter ID Performer Location Encounter Start Date Encounter Closed Date Diagnosis/Indication Diagnosis SNOMED-CT Code Diagnosis ICD10 Code Diagnosis [facility] [id number] [facility] [address] [place] [address] 12/16/2017 11:36:06 12/16/2017 12:52:59 Nonalcoholic steatohepatitis 708203312 K75.81 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 148992113 I85.10 Type 2 obdulio betes mellitus 62269596 E11.9 [id number] TOM Kunz [address] [place] [address] 12/23/2017 11:30:06 12/23/2017 12:45:09 Diabetes mellitus 14661292 E11.69 Cholecystitis 69386557 K 80.01 End stage liver disease 650536110 K72.90 [id number] TOM Kunz [address] [place] [address] 02/11/2018 15:41:09 02/11/2018 16:48:42 Generalized anxiety disorder 13325574 F41.1 Uncontroll ed type 2 diabetes mellitus 867619756 E11.65 [id number] TOM Kunz [address] [place] [address] 03/02/2018 15:31:55 03/02/2018 16:08:34 End stage liver disease 770056553 K72.00 Uncontroll ed type 2 diabetes mellitus 119239315 E11.65 [id number] Janeth Pavon PA-C [facility] [address] [place] [address] 05/13/2018 15:37:41 05/13/2018 17:17:50 End stage liver disease 748596644 K72.00 [id number] Janeth Pavon PA-C [facility] [address] [place] [address] 05/25/2018 11:13:32 05/25/2018 11:43:34 End stage liver disease 512587646 K72.00 Dyspnea on exertion 6084 5006 R06.09 Tachycardia 2894443 R00. 0 On examina tion - deep seated pustules 625109305 L08.9 [id number] Janeth Pavon PA-C [facility] [address] [place] [address] 06/14/2018 10:19:40 06/14/2018 11:01:20 Diabetes mellitus 18258969 E11.69 End stage liver disease 604872639 K72.00 Lumbar radiculopathy 128 325084 M54.16 [id number] Janeth Pavon PA-C [facility] [address] [place] [address] 02/09/2019 14:30:46 02/09/2019 15:35:07 Diabetes mellitus 41866199 E11.69 Increased frequency of urination 320256146 R35.0 [id number] Janeth Pavon PA-C [facility] [address] [place] [address] 03/22/2019 15:44:00 03/22/2019 17:48:00 Anemia due to chronic blood loss 345469523 D50.0 Nonalcohol ic steatohepatitis 771726280 K75.81 Type 2 obdulio betes mellitus without complication 515124304 E11.9 Low back pain 048739488 M54.5 Increased frequency of urination 593779273 R35.0 Hepatic encephalopathy 43863800 K72.90 [id number] Janeth Pavon PA-C [facility] [address] [place] [address] 08/01/2019 11:23:53 08/01/2019 12:28:44 Cirrhosis of liver 99670847 K74.69 [id number] TOM Kunz [address] [place] [address] 08/17/2019 09:24:17 08/24/2019 11:34:51 Diabetes mellitus 95452528 E11.69 Lumbar radiculopathy 128 502083 M54.16 [id number] Janeth Pavon PA-C [facility] [address] [place] [address] 08/31/2019 14:50:58 09/02/2019 14:48:06 Acute bronchitis with bronchospasm 55485227 J20.9 [id number] Janeth Pavon PA-C [facility] [address] [place] [address] 12/19/2019 09:34:48 12/19/2019 15:21:39 [id number] Janeth Pavon PA-C [facility] [address] [place] [address] 12/23/2019 09:37:23 12/23/2019 15:52:54 Diabetes mellitus 63069082 E11.69 Obstructiv e sleep apnea syndrome 41486190 G47.33 End stage liver disease 510458429 K72.00 Thoracic back pain 91689 8004 M54.6 [id number] TOM Kunz [facility] [address] [place] [address] 01/25/2020 09:34:10 01/25/2020 15:21:39 Lumbar radiculopathy 575144386 M54.16 [id number] Janeth Pavon PA-C [facility] [address] [place] [address] 02/23/2020 09:42:16 02/23/2020 16:52:05 Diabetes mellitus 68224848 E11.69 Renal mass 037309143 N28 .89 Neoplasm of kidney 41524 0001 D49.443 [id number] TOM Kunz [facility] [address] [place] [address] 06/13/2020 11:39:18 06/14/2020 10:53:35 Nonalcoholic steatohepatitis 735918254 K75.81 Uncontroll ed type 2 diabetes mellitus 317788529 E11.65 [id number] [facility] [address] [place] [address] 07/25/2020 11:21:27 07/25/2020 14:13:47 Long-term drug therapy 638459481 Z79.899 Gastroesop hageal reflux disease without esophagitis 727142920 K21.9 Hematochezia 683138485 K 92.1 Nausea and vomiting 1693 2000 R11.2 Pityriasis rosea 2636819 4 L42 Type 2 obdulio betes mellitus 42502333 E11.9 [id number] Janeth Pavon PA-C [facility] [address] [place] [address] 07/27/2020 10:05:37 07/31/2020 10:18:42 Uncontrolled type 2 diabetes mellitus 598018656 E11.65 [id number] Janeth Pavon PA-C [facility] [address] [place] [address] 2020 11:20:02 09/08/2020 12:42:46 Tinea corporis 75321590 B35.4 Abscess 854609409 L02.91 [id number] [facility] [address] [place] [address] 11/16/2020 10:47:40 11/16/2020 11:46:55 Exanthem due to herpes zoster 502276841 B02.8 [id number] Janeth Pavon PA-C [facility] [address] [place] [address] 06/26/2021 15:54:46 06/26/2021 17:00:08 Long-term drug therapy 274128767 Z79.899 Low back pain 982664463 M54.51 Body mass index 30+ - obesity 625042108 Z68.39 Screening for malignant neoplasm of prostate 628764429 Z12.5 [id number] TOM Kunz [facility] [address] [place] [address] 08/21/2021 11:08:46 08/21/2021 12:35:42 Adult health examination 133054619 Z00.00 Backache 434575312 M54.9 [id number] Janeth Pavon PA-C [facility] [address] [place] [address] 11/15/2021 15:33:53 11/18/2021 10:03:54 Hyperglycemia due to type 2 diabetes mellitus 9843469422 73723 E11.65 Type 2 obdulio betes mellitus 56622007 E11.9 Morbid obesity 699921508 E66.01 End stage liver disease 557550219 K72.00 [id number] Janeth Pavno PA-C [facility] [address] [place] [address] 05/28/2022 16:19:55 05/28/2022 17:17:07 Uncontrolled type 2 diabetes mellitus 790426436 E11.65 Chronic back pain 437630 002 M54.05 Overweight 022078917 E66 .3 Urinary incontinence 165 481317 R32 Generalize d anxiety disorder 70610944 F41.1 Backache 957246373 M54.9 [id number] Janeth Pavon PA-C [facility] [address] [place] [address] 10/27/2022 14:34:16 10/28/2022 10:40:36 Long-term drug therapy 606387749 Z79.899 Lumbar radiculopathy 128 825778 M54.16 Persistent cough 8575038 02 R05.3 Daytime somnolence 01283 57962 00 R40.0 Type 2 obdulio betes mellitus 22902219 E11.9 Iron defic iency anemia 11927303 D50.8 [id number] TOM Kunz [address] [place] [address] 12/29/2022 15:17:34 12/30/2022 09:55:18 Lumbar radiculopathy 309073430 M54.16 Overweight 281926960 E66 .3 [id number] TOM Kunz [facility] [address] [place] [address] 02/24/2023 18:01:59 03/02/2023 15:11:10 Persistent cough 748390035 R05.3 Essential hypertension 54275802 I10 Overweight 925768212 E66 .3 [id number] Janeth Pavon PA-C [facility] [address] [place] [address] 05/14/2023 11:38:36 05/15/2023 11:58:34 Type 2 diabetes mellitus 67566442 E11.9 Mixed anxi ety and depressive disorder 478293555 F41.8 Overweight 896575787 E66 .3 [id number] Janeth Pavon PA-C [facility] [address] [place] [address] 06/04/2023 10:52:25 06/09/2023 14:14:44 Abdominal pain 94375184 R10.13 Cirrhosis of liver 30866 007 K74.69 Overweight 167462886 E66 .3 [id number] Janeth Pavon PA-C [facility] [address] [place] [address] 07/02/2023 12:08:49 07/03/2023 11:31:17 Type 2 diabetes mellitus 64590665 E11.9 Atypical chest pain 1025 92239 R07.89 Overweight 194055351 E66 .3 [id number] Janeth Pavon PA-C [facility] [address] [place] [address] 08/05/2023 15:58:27 08/21/2023 14:53:44 Uncontrolled type 2 diabetes mellitus 806347668 E11.65 Overweight 190439165 E66 .3 [id number] Janeth Pavon PA-C [facility] [address] [place] [address] 08/13/2023 14:55:22 08/20/2023 15:19:06 Lumbar radiculopathy 434171650 M54.16 [id number] KATHY VARGAS [facility] [address] [place] [address] 09/17/2023 08:59:31 09/18/2023 13:42:26 Atopic dermatitis 46012284 L20.9 -Patient presentati on consistent with atopic dermatitis .-Patient reports rash has improved with triamcinol one use. Patient to continue triamcinol one for another 7 days BID PRN.-PLASTER MECHANIC ordering eucerin lotion for patient to use daily PRN.-PLASTER MECHANIC provided atopic dermatitis care instructio ns. Type 2 obdulio betes mellitus 86773486 E11.21 -Uncontrol led.-Last A1c: 12 (05/14/23)- Continue current therapy-Jamie werner would like referral to another endocrinol ogist and nutritioni . PLASTER MECHANIC to place orders.-PLASTER MECHANIC discussed diet and lifestyle changes with the patient at length. PLASTER MECHANIC provided numerous diabetes care instructio ns and discussed with the patient.-R ecommended diabetic diet-Educa manny to check feet daily [id number] Amanda Amin MA [facility] [address] [place] [address] 10/16/2023 11:23:31 10/17/2023 06:49:47 Long-term drug therapy 932354065 Z79.899 Diabetes mellitus 454060 09 E11.69 Overweight 703573367 E66 .3 [id number] Janeth Pavon PA-C [facility] [address] [place] [address] 01/14/2024 09:33:39 01/19/2024 12:05:45 Long-term drug therapy 038707509 Z79.899 Type 2 obdulio betes mellitus 94747310 E11.9 Uncontroll ed type 2 diabetes mellitus 430593150 E11.65 ER now Overweight 395828095 E66 .3 [id number] Janeth Pavon PA-C [facility] [address] [place] [address] 01/26/2024 10:49:29 02/03/2024 14:35:51 Cirrhosis of liver 58332604 K74.69 Type 2 obdulio betes mellitus 03077870 E11.9 Adult [facility] th examination 253190514 Z00.00 Overweight 487618350 E66 .3 [id number] Janeth Pavon PA-C [facility] [address] [place] [address] 03/03/2024 10:44:06 03/04/2024 13:36:40 Chronic low back pain 366821899 M54.59 Morbid obesity 142299659 E66.01 [id number] Janeth Pavon PA-C [facility] [address] [place] [address] 03/08/2024 14:46:39 03/09/2024 16:00:13 Seizure 69236747 G40.89 Uncontroll ed type 2 diabetes mellitus 507883710 E11.65 Dissociati ve convulsions 570164406 F44.5 Overweight 367618910 E66 .3 [id number] Janeth Pavon PA-C [facility] [address] [place] [address] 03/23/2024 10:36:19 03/28/2024 10:16:17 Lumbar radiculopathy 610620475 M54.16 Uncontroll ed type 2 diabetes mellitus 294595932 E11.65 Overweight 174776398 E66 .3 [id number] Janeth Pavon PA-C [facility] [address] [place] [address] 04/06/2024 09:53:53 04/06/2024 16:23:24 Dysuria 72477493 R30.0 Uncontroll ed type 2 diabetes mellitus 649822309 E11.65 Generalize d anxiety disorder 74894869 F41.1 Overweight 598027146 E66 .3 Health Concerns Section Related Observation [...] 2020 (MEDICAID REPLACEMENT - HMO) Camilo Curry [id number] Camilo Curry 03/03/2024 1 [employer] [place] ON [place] AFTER 2020 (MEDICAID REPLACEMENT - HMO) Camilo Curry [id number] Camilo Curry 03/08/2024 1 [employer] [place] (MEDICAID REPLACEMENT - HMO) Camilo Curry [id number] Camilo Curry 03/23/2024 1 [employer] [place] (MEDICAID REPLACEMENT - HMO) Camilo Curry [id number] Camilo Curry 04/06/2024 1 [employer] [place] ([place] REPLACEMENT - HMO) Camilo Curry [id number] Camilo Curry Notes Date Note Type Note Provider Name and Address Organization Details Recorded Time 01/26/2024 text/html has been to ER twice over his liver...has to have a 1.5 MRI for his liver and a clot in his shunt...his christmas bell ringer is leaving [facility]...needs referral to another Janeth Pavon PA-C Attn: Accounting, [address] [facility], [place], [address], [facility] [place] 01/26/2024 11:31:17 03/03/2024 text/html patient has chronic low back pain and wants a brace in order to facilitate ADL such as standing ambulating and hygiene and meal prep Janeth Pavon PA-C Attn: Accounting, [address] [facility], [place], [address], [facility] [place] 03/03/2024 11:28:09 03/08/2024 text/html first time seizu re thursday night..says approx an hour?...was found in yard..refused EMS..cant get into psych until end of april...no xanax for over a month...reports BS was off meter high..reports no post ictal Janeth Pavon PA-C Attn: Accounting, [address] [facility], [place], [address], [facility] - [place] 03/08/2024 15:28:41 03/23/2024 text/html injured his lowe r back moving furniture...needs MRI...xray and CT spine were negative...phys therapy was ineffective...was just in ER Janeth Pavon PA-C Attn: Accounting, [address] [facility], [place], [address], [facility] - [place] 03/23/2024 11:18:37 04/06/2024 text/html has burning urination for a week... every hour frequency...says he has been drinking nikhil justice vs nausea...also needs something for sedation for MRI Janeth Pavon PA-C Attn: Accounting,[address] [facility], [place], [address], [place] [facility] 04/06/2024 10:29:01
--- OUTSIDE RECORDS SUMMARY | 2024-06-08 07:02 | XMS_ITS | Encounter Summary ---
Author Organization [facility] Address [address] [place] [address] Care Team Providers Care Christmas Tree Farm Worker Name Role Phone None, Provider Primary Care Provider Braydon Piedra Primary Care Provider [phone] Encounter Details Date Type Department Care Team (Late Contact Info) Description 10/09/2018 Abstract SFL CONVERSION [address] [place] [address] , Generic Conversion, Social History Tobacco Use [...] Description 08/30/2024 12:00 PM CDT Office Visit [facility] Diabetes and Endocrinology - [address] [address] Eva Power MD [address] [place] [phone] documented as of this encounter Visit Diagnoses Not on filedocumented in this encounter Care Teams Christmas Tree Farm Worker Relationship Specialty Start Date End Date None, ProviderMD PCP - General 02/08/19 03/01/19 Braydon Pavon PA [address] [place] [address] PCP - General PHYSICIAN LINOLEUM FLOOR LAYER 03/02/19 documented as of this encounter
--- OUTSIDE RECORDS SUMMARY | 2024-06-08 07:02 | XMS_ITS | Encounter Summary ---
Author Organization [facility] Address [facility] [place] [address] Care Team Providers Care Antenna Design Engineer Name Role Phone Braydon Pavon Primary Care Provider [phone] Nikolay Lancaster MD Primary Care Provider [phone] Braydon Pavon Primary Care Provider [phone] Reason for Visit * Reason Onset Date Comments MEDICATION REFILL 09/08/2018 Encounter Details Date Type Department Care Team (Late st Contact Info) Description 09/08/2018 Refill [facility] [address] [facility] [place] [address] Edmond Choi MD [address] [facility] [address] [facility] [place] [address] MEDICATION REFILL Social History Tobacco Use Types [...] on filedocumented in this encounter Care Teams Antenna Design Engineer Relationship Specialty Start Date End Date Braydon Pavon PA [address] [place] [address] PCP - General Physician Rug Inspector 05/19/18 10/03/18 Nikolay Lancaster MD [address] [place] [address] PCP - General 10/04/18 07/13/23 Braydon Pavon PA [address] [place] [address] PCP - General Physician Rug Inspector 07/14/23 documented as of this encounter
--- OUTSIDE RECORDS SUMMARY | 2024-06-08 07:02 | XMS_ITS | Referral Summary ---
Author Organization [facility] Address [address] [place] [address] Care Team Providers Care Mis Director Name Role Phone Nacho Rodriguez MD Unavailable [phone] Elian Gross MD Unavailable Braydon Pavon Primary Care Provider [phone] Encounters Date Type Department Care Team Description 06/02/2024 8:55 AM MOVEMENT THERAPIST Lab [facility] [address] [place] [address] Hepatic cirrhosis, unspecified hepatic cirrhosis type, unspecified whether ascites present (HCC) 06/02/2024 8:00 AM MOVEMENT THERAPIST Office Visit [facility] [address] [facility] Medicine 12th [place] [address] [place] [address] Nilton Whatley MD Hepatic cirrhosis, unspecified hepatic cirrhosis type, unspecified whether ascites present (HCC) from Last 3 Months Allergies Active Allergy [...] 1 each 05/21/19 22 Active Dexcom G6 Windows Security Engineer misc 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 Use to [...] injection 3 times daily (before meals). 02/03/20 23 Active traZODone (DESYREL) 100 mg tablet Take 1 tablet (100 mg total) by mouth 2 (two) times a day 02/03/20 23 Active tirzepatide (Mounjaro) 5 mg/0.5 mL pen [...] 05/20/2021 Assessment & Plan (05/22/2021 3:58 PM MOVEMENT THERAPIST): A initial well visit to establish care [...] unless otherwise indicated. Need follow-up arranged with computational mathematician, drilling fluids specialist Planning on referral to paint roller assembler Will need to check in to the tips follow-up Labs as ordered today, I will direct the A1 c to his drilling fluids specialist's office. Continuing the current regimen for now. Blood pressure is controlled at this time. We may need to try to get the stress test done as well. Screen for colon cancer 03/01/2021 Overview (03/01/2021): Added automatically from request for surgery [id number] Diabetic neuropathy associat ed with type 2 diabetes mellitus ([facility]) 10/29/2020 Assessment & Plan (10/29/2020 4:23 PM CDT): Chronic, worsening Start, gabapentin therapy Work on better diabetic control Vitamin D deficiency 10/29/2020 Assessment & Plan (10/29/2020 4:23 PM CDT): Check labs and based on that for the plans Bacterial endocarditis 05/14/2020 Assessment & Plan (05/14/2020 11:09 AM MOVEMENT THERAPIST): Unfortunately the patient's records from [place] are not available for my review. We [...] 05/14/2020 Assessment & Plan (05/14/2020 11:11 AM MOVEMENT THERAPIST): The patient's dyspnea on exertion is likely [...] up in 6 weeks with ANDREA Driscoll ( to discuss about insulin pumps [...] resume home regimen and follow-up with home drilling fluids specialist MATHEUS pain 10/11/2017 Morbid obesity 12/09/2016 TRACY [...] on file Legal Sex Male 2:52 PM MOVEMENT THERAPIST Gender Identity Male 10/29/2020 12:37 PM CDT Sexual Orientation Straight 10/29/2020 12 :37 PM CDT Last Filed Vital Signs Vital Sign Reading Time Taken Comments Blood Pressure 117/76 06/02/2024 7:36 AM MOVEMENT THERAPIST Pulse 88 06/02/2024 7:36 AM MOVEMENT THERAPIST Temperature 36.7 ??C (98.1 ??F) 06/02/2024 7:36 AM CS T Respiratory Rate 17 01/20/2024 12:0 0 PM CDT Oxygen Saturation 92% 06/02/2024 7:36 AM MOVEMENT THERAPIST Inhaled Oxygen Concentration - - Weight 103.1 kg (227 lb 6.4 oz) 06/02/2024 7:36 AM MOVEMENT THERAPIST Height 172.7 cm (5' 8 ) 11/23/2023 7:53 AM CDT Body Mass Index 34.58 11/23/2023 7:53 AM CDT Plan of Treatment Not on file Medical Devices Implanted Type Area Post Graduate Intern Device Identifier Shelf Expiration Date Model / Serial / Lot [employer] Peripheral Vascular [id number] Lifestar 14mm 60mm 80cm Stent Biliary - [id number] Implanted:Qty: 1 on 01/10/2021 at [facility] [employer] 09/15/2023 [id number] / / [id number] Procedures Procedure Name Priority Date/Time Associated Diagnosis Comments EGFR Routine 06/02/2024 8:48 AM MOVEMENT THERAPIST Hepatic cirrhosis, unspecified hepatic cirrhosis type, unspecified whether ascites present (HCC) COMPREHENSIVE METABOLIC PANEL Routine 06/02/2024 8:48 AM MOVEMENT THERAPIST Hepatic cirrhosis, unspecified hepatic cirrhosis type, unspecified whether ascites present (HCC) PROTIME-INR Routine 06/02/2024 8:48 AM MOVEMENT THERAPIST Hepatic cirrhosis, unspecified hepatic cirrhosis type, unspecified whether ascites present (HCC) [id number], TUMOR MARKER Routine 06/02/2024 8:48 AM MOVEMENT THERAPIST Hepatic cirrhosis, unspecified hepatic cirrhosis type, unspecified whether ascites present (HCC) BILIRUBIN, DIRECT Routine 06/02/2024 8:4 8 AM MOVEMENT THERAPIST Hepatic cirrhosis, unspecified hepatic cirrhosis type, unspecified whether ascites present (HCC) HEMOGLOBIN A1C STAT 11/23/2023 8:40 AM CDT LIPID PANEL Routine 05/20/2021 9:36 AM MOVEMENT THERAPIST Morbid obesity with body mass index (BMI) of 40.0 to 44.9 in adult (HCC) ALBUMIN CREATININE RATIO, URINE Routine 05/20/2021 9:36 AM MOVEMENT THERAPIST Diabetic neuropathy associated with type 2 diabetes mellitus (CMS/HCC) (HCC) COLONOSCOPY 12/17/2020 10:24 AM CDT SERUM HEPATITIS PANEL Routine 08/23/2015 5:23 PM CDT from Last 3 Months or Most Recently Relevant to Health Maintenance Results * eGFR (06/02/2024 8:48 AM MOVEMENT THERAPIST) eGFR >90 >=60 mL/min/1. 73 m2 Comment: [...] last reviewed 2021. Blood 06/02/2024 8:48 AM MOVEMENT THERAPIST 06/02/2024 9:05 AM MOVEMENT THERAPIST us Nilton Whatley MD LAB BLOOD ORDERABLES Final Result [facility] Department [place] [address] * [id number], Tumor Marker (06/02/2024 8:48 AM MOVEMENT THERAPIST) alpha Fetoprotein <2.0 <=8.3 ng/mL Comment: Interpretive [...] year ?0.0 ? 8.3 ng/ml References Abbi Arguelles. et al. ??J. Ped Surg 1978;13:155-156 Bruno Dee et al. Clin Chem Lab Med 2018;57:783-797 Jeyson Sanches et al. ??Clin Chem 2014;3018-6119. Current interpretive data was last revised 2022. Blood 06/02/2024 8:48 AM MOVEMENT THERAPIST 06/02/2024 9:00 AM MOVEMENT THERAPIST us Nilton Whatley MD LAB BLOOD ORDERABLES Final Result Performing Organization Address City/[facility] Co de Phone Number [facility] [place] [address] * (ABNORMAL) Protime-INR (06/02/2024 8:48 AM MOVEMENT THERAPIST) PT 13.5(H) 9.7 - 13.0 sec INR 1.24(H) 0.90 - 1.20 [facility] Comment: Interpretive data Oral anticoagulant therapeutic ranges: Venous thromboembolism prophylaxis or treatment: 2.0-3.0 CARDIOLOGY Standard range: 2.0-3.0 High-intensity range: 2.5-3.5 Refer to indication-specific guidelines for appropriate target ranges for prosthetic heart valve replacement. Current interpretive data was last revised on 2019. Blood 06/02/2024 8:48 AM MOVEMENT THERAPIST 06/02/2024 9:00 AM MOVEMENT THERAPIST us Nilton Whatley MD LAB BLOOD ORDERABLES Final Result Performing Organization Address [facility] de Phone Number [facility] of [facility] [place] [address] * (ABNORMAL) Bilirubin, direct (06/02/2024 8:48 AM MOVEMENT THERAPIST) Bilirubin, direct 0.6(H) 0.1 - 0.3 mg/dL Comment:Hemolyzed; result ma y be falsely decreased Blood 06/02/2024 8:48 AM MOVEMENT THERAPIST 06/02/2024 9:00 AM MOVEMENT THERAPIST us Nilton Whatley MD LAB BLOOD ORDERABLES Final Result Performing Organization Address City/[facility] Co de Phone Number [facility] Department of [facility] [place] [address] * (ABNORMAL) Comprehensive metabolic panel (06/02/2024 8:48 AM MOVEMENT THERAPIST) Sodium 141 135 - 145 mmol/L Potassium, pl 4.3 3.3 - 4.9 mmol/L [facility] Comment:Hemolyzed; Potassium value may be falsely elevated by as much as 0.3-0.5 mmol/L. Suggest redraw and reanalysis. Chloride 107 97 - 110 mmol/L [facility] CO2 27 22 - 32 mmol/L [facility] Anion gap 7 2 - 15 mmol/L [facility] BUN 13 6 - 25 mg/dL [facility] Creatinine 0.76(L) 0.80 - 1.30 mg/dL [facility] Glucose 242(H) 70 - 199 mg/dL [facility] Comment: Interpretive Data Fasting glucose >/= [...] 2022. Calcium 9.6 8.5 - 10.3 mg/dL [facility] Bilirubin, total 3.0(H) 0.1 - 1.2 mg/dL [facility] Protein, pl 6.9 6.5 - 8.5 g/dL [facility] Albumin 3.8 3.5 - 5.0 g/dL [facility] Alk phos 90 40 - 130 Units/L [facility] ALT 19 7 - 55 Units/L [facility] AST 38 10 - 50 Units/L [facility] Comment:Hemolyzed; result ma y be falsely elevated Blood 06/02/2024 8:48 AM MOVEMENT THERAPIST 06/02/2024 9:00 AM MOVEMENT THERAPIST us Nilton Whatley MD LAB BLOOD ORDERABLES Final Result [facility] [place] [address] * (ABNORMAL) Hemoglobin A1c (11/23/2023 8:40 AM CDT) Hgb A1C 10.0(H) 4.0 - 5.6 % Estimated Average Glucose 240 mg/dL [facility] Comment: The ADA recommends reporting an [...] nal Result Performing Organization Address City/[facility]/ZIP Co de Phone Number [facility] One [facility] [place] [address] * Albumin Creatinine Ratio, Urine (05/20/2021 9:36 AM MOVEMENT THERAPIST) Albumin Ur <12.0 mg/L [facility] Comment: Interpretive Data No reference range established. Current interpretive data was last revised 2018. Creatinine Ur 47.6 mg/dL [facility] Comment: Interpretive Data No reference range established. Current interpretive data was last revised 2018. Albumin Creatinine Ratio, Ur <25 1 - 29 mg/g [facility] Urine 05/20/2021 9:36 AM MOVEMENT THERAPIST 05/20/2021 7:41 PM MOVEMENT THERAPIST Simon Lundberg MD LAB URINE ORDERABLES Final Result [facility] [address] Job Department [facility] [place] [address] * (ABNORMAL) Lipid panel (05/20/2021 9:36 AM MOVEMENT THERAPIST) [facility] Cholesterol 110 30 - 199 mg/dL [facility] [...] 3 [facility] MARTINEZ Blood 05/20/2021 9:36 AM MOVEMENT THERAPIST 05/20/2021 7:41 PM MOVEMENT THERAPIST us Simon Lundberg MD LAB BLOOD ORDERABLES Final Result [facility] [address] [address] Department [place] [address] * COLONOSCOPY (12/17/2020 10:24 AM CDT) Anatomical Region Laterality Modality Other Narrative Procedure Note Elian Gross MD - 12/17/2020 10:24 AM CDT ENDOSCOPY LAB Patient Name: Camilo Curry Procedure Date: 12/17/2020 10:24 AM Date of : 1970 Admit Type: Outpatient Age: 50 Gender: Male Attending MD: Elian Vivar M.D. Room: [facility] ENDOSCOPY ROOM 02 Note Status: Finalized [...] the physician, the nurse, the anesthesiologist, the rehab consultant and thetechnician in the pre-procedure area in [...] The scope was passed under direct vision.The [id number] was introduced through the anusand advanced to the hepatic flexure. The colonoscopywas performed without difficulty. The patient tolerated the procedure well. The quality of the bowel preparation was unsatisfactory. The quality of the bowel preparation was evaluated using the BBPS([place] Bowel Preparation Scale) with scores of: RightColon [...] 10:24 AM us Elian Draper MD ENDOSCOPY [place] OCEDURES Final Result * Serum Hepatitis panel (08/23/2015 5:23 PM CDT) HBV surface ag Negative NEG HISTO RICAL RESULTS HCV ab Negative NEG HISTORICAL RESULTS Comment: Interpretive Data If confirmation is required, call Laboratory Customer Service to request sample to be sent to [facility] for Hepatitis C Virus (HCV) RNA Detection and Quantitation by Real-Time Reverse Government Instructor-PCR (RT-PCR). Current interpretive data was last revised [...] Most Recently Relevant to Health Maintenance Insurance [facility]NA [facility] AETNA [place] Advance Directives For more information, please contact: [phone] * Full Code (Latest Code Status on [...] 11:57 AM 02/03/2018 5:26 AM Care Teams Mis Director Relationship Specialty Start Date End Date Braydon Pavon PA [address] [place] [address] PCP - General 08/23/21 [place] [id number] [address] [facility] [address] [place] [address] Consulting Physician Endocrinology 05/20/21 [place] [id number] [address] [address] Consulting Physician Internal Medicine 05/20/21
--- NOTE | 2024-06-08 07:08 | ED.URI ---
HPI - URI/Sore Throat General Chief Complaint: Upper Respiratory Infection Stated Complaint: URI, UNSTEADY Time Seen by Provider: 06/08/24 07:05 Source: patient Mode of arrival: ambulatory Limitations: no limitations History of Present Illness HPI Narrative: 53-year-old male with a history of ex smoking, diabetes mellitus, chronic low back pain, cirrhosis with esophageal varices/encephalopathy, GI bleed, anxiety/depression presents to the ED with a 3 day history of -- cough with yellow sputum -- generalized weakness and body ache -- sore throat -- fever MD elicited complaint: cough and sore throat Pertinent past history: other ( cirrhosis) Onset (ago): day(s) ( 3 days) Consistency: constant Able to tolerate fluids by mouth: Yes Exacerbating factors: nothing Relieving factors: nothing Associated symptoms: sore throat and cough Treatments prior to arrival: none Related Data Home Medications ?Medication ?Instructions ?Recorded ?Confirmed ?Last Taken ?Type albuterol sulfate 90 mcg/actuation 2 puff inhalation Q8-10H PRN 02/19/20 03/22/24 Unknown History aerosol inhaler Wheezing alprazolam 1 mg tablet 0.5 mg PO TID PRN Anxiety 09/04/20 03/22/24 Unknown History ondansetron HCl 4 mg tablet 4 mg PO BID PRN Nausea 09/04/20 03/22/24 Unknown History liraglutide 0.6 mg/0.1 mL (18 mg/3 See Rx Instructions .Route .COMPLEX 03/05/21 03/22/24 Unknown History mL) subcutaneous pen injector (Power.com 3-Anatoliy) hydroxyzine HCl 25 mg tablet 25 mg PO QID 06/20/23 03/22/24 Unknown History trazodone 100 mg tablet 100 mg PO BID 06/20/23 03/22/24 Unknown History blood sugar diagnostic (OneTouch 02/23/24 03/22/24 Unknown History Ultra Test strips) blood-glucose sensor (Dexcom G7 02/23/24 03/22/24 Unknown History Sensor device) carvedilol 3.125 mg tablet 3.125 mg PO DAILY 02/23/24 03/22/24 Unknown History dulaglutide 0.75 mg/0.5 mL 0.75 mg subcut DAILY 02/23/24 03/22/24 Unknown History subcutaneous pen injector (Trulicity) duloxetine 30 mg capsule,delayed 30 mg PO DAILY 02/23/24 03/22/24 Unknown History release famotidine 20 mg tablet 20 mg PO DAILY 02/23/24 03/22/24 Unknown History hydrochlorothiazide 25 mg tablet 25 mg PO DAILY 02/23/24 03/22/24 Unknown History hydrocodone 10 mg-acetaminophen 10 - 325 tablet PO DAILY 02/23/24 03/22/24 Unknown History 325 mg tablet insulin glargine 100 unit/mL (3 100 unit subcut DIRECTED 02/23/24 03/22/24 Unknown History mL) subcutaneous pen (Lantus Solostar U-100 Insulin) insulin lispro 100 unit/mL 100 unit subcut DIRECTED 02/23/24 03/22/24 Unknown History subcutaneous pen (Humalog KwikPen (U-100) Insulin) insulin regular hum U-500 conc 500 500 unit subcut DIRECTED 02/23/24 03/22/24 Unknown History unit/mL(3 mL) subcut pen (Humulin R U-500 (Conc) Insulin Kwikpen) lactulose 10 gram/15 mL oral 10 g PO DAILY 02/23/24 03/22/24 Unknown History solution (Enulose) metformin 500 mg tablet,extended 500 mg PO DAILY 02/23/24 03/22/24 Unknown History release 24 hr pen needle, diabetic 31 gauge x 02/23/24 03/22/24 Unknown History 16 (TRUEplus Pen Needle) pregabalin 200 mg capsule 200 mg PO DAILY 02/23/24 03/22/24 Unknown History Allergies Allergy/AdvReac Type Severity Reaction Status Date / Time aztreonam (Azactam) Allergy Intermediate Unknown Verified 06/08/24 07:33 ciprofloxacin (Cipro) Allergy Intermediate Unknown Verified 06/08/24 07:33 esomeprazole (Nexium) Allergy Intermediate Unknown Verified 06/08/24 07:33 octreotide Allergy Intermediate Unknown Verified 06/08/24 07:33 sulfanilamide Allergy Intermediate Unknown Verified 06/08/24 07:33 erythromycin base Allergy Unknown Unknown Verified 06/08/24 07:33 Penicillins Allergy Unknown Unknown Verified 06/08/24 07:33 Sulfa (Sulfonamide Allergy Unknown Unknown Verified 06/08/24 07:33 Antibiotics) duloxetine Allergy Unknown Verified 06/08/24 07:33 magnesium Allergy Unknown Verified 06/08/24 07:33 nisoldipine Allergy Unknown Verified 06/08/24 07:33 prochlorperazine Allergy Unknown Verified 06/08/24 07:33 IVP dye Allergy Intermediate Unknown Uncoded 06/08/24 07:33 Contrast Media Allergy Unknown Unknown Uncoded 06/08/24 07:33 Review of Systems Review of Systems: All systems reviewed & are unremarkable except as noted in HPI and below Constitutional: Constitutional: Reports as per HPI, Reports no additional constitutional complaints and Reports weakness Eyes: Eyes: Reports as per HPI and Reports no additional eye complaints ENT: Reports system reviewed and no additional complaints, except as documented, Reports as per HPI and Reports sore throat Cardiovascular: Cardiovascular: Reports as per HPI and Reports no additional cardiovascular complaints Respiratory: Respiratory: Reports as per HPI, Reports no additional respiratory complaints and Reports cough Gastrointestinal: Gastrointestinal: Reports as per HPI and Reports no additional gastrointestinal complaints Genitourinary: Genitourinary: Reports no additional male genitourinary complaints and Reports as per HPI Musculoskeletal: Musculoskeletal: Reports no additional musculoskeletal complaints and Reports as per HPI Integumentary/Breasts: Skin/Breast: Reports system reviewed and no additional complaints, except as docu and Reports as per HPI Neurologic: Reports system reviewed and no additional complaints, except as documented and Reports as per HPI Psychiatric: Psychiatric: Reports no additional psychiatric complaints, Reports as per HPI, Reports anxiety and Reports depression Endocrine: Endocrine: Reports no additional endocrine complaints and Reports as per HPI Hematologic/Lymphatic: Hematologic/Lymphatic: Reports no additional hematologic/lymphatic complaints and Reports as per HPI Allergic/Immunologic: Allergic/Immunologic: Reports no additional allergic/immunologic complaints and Reports as per HPI [facility] Past Medical History Medical History Chronic back pain Diabetes mellitus type 2 in obese Hepatic encephalopathy GI bleeding GERD (gastroesophageal reflux disease) Varices, esophageal Liver failure Surgical History Surgical History S/P TIPS (transjugular intrahepatic portosystemic shunt) Social History Social History Smoking status: Former smoker Alcohol intake: never Substance use: never Living arrangements: with family Exam Narrative: tachycardic with a heart rate of 120. Afebrile. Const: General: ill appearing Nutritional Appearance: well nourished Orientation/consciousness: patient oriented x3 HENMT: Head: normal to inspection Ears: external ears normal Face/Nose/Sinus: Normal external nose present Face and sinus: normal facial exam Mouth: Yes Normal oral and palatal mucosa present Throat: posterior oropharynx normal Eyes: Conjunctivae: conjunctivae normal Pupils: Equal, round and reactive pupils present EOM: EOMs intact bilaterally Direct Ophthalmoscopy: no photophobia Neck: Neck: normal visual inspection, no lymphadenopathy and no meningeal signs Chest: Chest palpation & inspection: normal inspection of the chest Resp: Effort & Inspection: normal respiratory effort Auscultation: diminished lung sounds Cardio: Rate: regular rate Rhythm: regular rhythm GI: GI Palp: Yes Soft to palpation Auscultation: normal bowel sounds Other: No tenderness/rigidity/ rebound. : General: Yes no CVA tenderness Back/Spine/Pelvis: Back: no CVA tenderness Skin: General skin exam: normal color Rashes: no rashes Wounds: no wounds Neuro: General: patient oriented x3, moves all extremities, no meningeal signs, no focal motor deficits and CN's II-XI intact bilaterally Cranial nerves: Yes Nystagmus not present Speech: normal speech Gait exam (Neuro): Normal gait present Extrem: General: normal to inspection and no clubbing, cyanosis or edema Psych: Mental Status: mental status grossly normal Affect: normal affect Attitude: cooperative Course Course Emergency Course: Upper respiratory tract infecion-- tested positive for influenza A CHF-- newly diagnosed/ marginally elevated troponins cirrhosis of liver with encephalopathy, unconjugated hyperbilirubinemia, pancytopenia elevated blood sugars Vital Signs Vital signs: Vital Signs Oxygen Delivery Room Air 06/08/24 06:59 Temperature 37.1 C 06/08/24 12:47 Pulse Rate 109 H 06/08/24 12:01 Respiratory Rate 20 06/08/24 12:01 Blood Pressure 112/67 06/08/24 12:01 Pulse Oximetry 90 06/08/24 12:01 Oxygen Delivery Room Air 06/08/24 12:01 MDM - URI/Sore Throat MDM Narrative Medical decision making narrative: influenza a cirrhosis of liver with hepatic encephalopathy newly diagnosed CHF with mildly elevated troponins. no EKG changes hyperglycemia Differential Diagnosis Differential diagnosis: Likely viral infection and bronchitis Medical Records Attestation: I reviewed the patient's medical records. Lab Data Attestation: I reviewed the patient's lab results. 06/08/24 07:36 06/08/24 07:36 Labs: Lab Results 06/08/24 06/08/24 06/08/24 Range/Units 07:05 07:21 07:36 WBC 5.2 (4.8-10.8) K/mm3 RBC 5.54 (4.70-6.10) M/mm3 Hgb 16.3 (14.0-18.0) g/dL Hct 47.7 (40.0-54.0) % MCV 86.1 (78.0-102.0) fL MCH 29.4 (27.0-31.0) pg MCHC 34.2 (32-36) g/dL RDW 15.9 H (11.6-14.4) % Plt Count 74 L (150-420) K/mm3 MPV 10.4 (8.7-11.0) fl Immature Gran % (Auto) 0.4 H (0.0-0.0) % Neut % (Auto) 79.7 H (50.0-70.0) % Lymph % (Auto) 8.0 L (18.0-42.0) % [place] % (Auto) 10.9 (2.0-11.0) % Eos % (Auto) 0.2 L (1.0-6.0) % Baso % (Auto) 0.8 (0.0-1.0) % Lymph # (Auto) 0.42 L (1.10-4.50) K/mm3 [place] # (Auto) 0.57 (0.10-0.90) K/mm3 Eos # (Auto) 0.01 L (0.02-0.50) K/mm3 Baso # (Auto) 0.04 (0.00-0.10) K/mm3 Abs Immat Gran (auto) 0.02 H (0.00-0.00) K/mm3 Absolute Neuts (auto) 4.16 (1.70-7.20) K/mm3 Absolute Nucleated RBC 0.00 (0.00-0.00) K/mm3 Nucleated RBC % 0.0 (0-0.0) % % Immature Plt Fraction 3.4 (1.0-7.0) % PT 11.8 (9.50-12.1) Seconds INR 1.1 Sodium 134 L (136-145) mmol/L Potassium 4.3 (3.5-5.1) mmol/L Chloride 99 (98-108) mmol/L Carbon Dioxide 26 (21-32) mmol/L Anion Gap 9 (4-12) mmol/L BUN 14 (7-18) mg/dL Creatinine 1.16 (0.70-1.30) mg/dL Estim Creat Clear Calc 75 ml/min Estimated GFR > 60 (59 - ) Glucose 326 H (70-99) mg/dL Calculated Osmolality 291 (285-295) mOsm/kg Calcium 8.5 (8.5-10.1) mg/dL Total Bilirubin 3.7 H (0.00-1.00) mg/dL Direct Bilirubin 0.6 H (0-0.2) mg/dL AST 21 (15-37) U/L ALT 17 (16-63) U/L Alkaline Phosphatase 100 (46-116) U/L Ammonia 43 H (11-32) umol/L Troponin I 63.1 H* (0.00-60.4) ng/L NT-Pro-B Natriuret Pep (0-125) pg/mL Total Protein 7.0 (6.4-8.2) g/dL Albumin 3.5 (3.4-5.0) g/dL Lipase 12 L (16-77) U/L Urine Color Yellow (Yellow) Urine Appearance Clear (Clear) Urine pH 5.5 (5.0-8.0) Ur Specific [place] 1.025 H (1.010-1.020) Urine Protein 1+ H (Negative) Urine Glucose (UA) 3+ H (Negative) Urine Ketones Trace H (Negative) Ur Blood (Man) Negative (Negative) Urine Nitrate Negative (Negative) Urine Bilirubin Negative (Negative) Urine Urobilinogen 0.2 (0.2-1.0) mg/dL Leukocyte Esterase Rfl Negative (Negative) KARELY/UL Urine RBC None seen (0-2) /hpf Urine WBC None seen (0-3) /hpf Urine Bacteria Rare (None) /hpf Urine Mucus Few H /lpf Influenza A (RT-PCR) Positive A (Negative) Influenza B (RT-PCR) Negative (Negative) RSV (RT-PCR) Negative (Negative) SARS-CoV-2 RNA (RT-PCR) Negative (Negative) 06/08/24 Range/Units 09:36 WBC (4.8-10.8) K/mm3 RBC (4.70-6.10) M/mm3 Hgb (14.0-18.0) g/dL Hct (40.0-54.0) % MCV (78.0-102.0) fL MCH (27.0-31.0) pg MCHC (32-36) g/dL RDW (11.6-14.4) % Plt Count (150-420) K/mm3 MPV (8.7-11.0) fl Immature Gran % (Auto) (0.0-0.0) % Neut % (Auto) (50.0-70.0) % Lymph % (Auto) (18.0-42.0) % [place] % (Auto) (2.0-11.0) % Eos % (Auto) (1.0-6.0) % Baso % (Auto) (0.0-1.0) % Lymph # (Auto) (1.10-4.50) K/mm3 [place] # (Auto) (0.10-0.90) K/mm3 Eos # (Auto) (0.02-0.50) K/mm3 Baso # (Auto) (0.00-0.10) K/mm3 Abs Immat Gran (auto) (0.00-0.00) K/mm3 Absolute Neuts (auto) (1.70-7.20) K/mm3 Absolute Nucleated RBC (0.00-0.00) K/mm3 Nucleated RBC % (0-0.0) % % Immature Plt Fraction (1.0-7.0) % PT (9.50-12.1) Seconds INR Sodium (136-145) mmol/L Potassium (3.5-5.1) mmol/L Chloride (98-108) mmol/L Carbon Dioxide (21-32) mmol/L Anion Gap (4-12) mmol/L BUN (7-18) mg/dL Creatinine (0.70-1.30) mg/dL Estim Creat Clear Calc ml/min Estimated GFR (59 - ) Glucose (70-99) mg/dL Calculated Osmolality (285-295) mOsm/kg Calcium (8.5-10.1) mg/dL Total Bilirubin (0.00-1.00) mg/dL Direct Bilirubin (0-0.2) mg/dL AST (15-37) U/L ALT (16-63) U/L Alkaline Phosphatase (46-116) U/L Ammonia (11-32) umol/L Troponin I 69.7 H* (0.00-60.4) ng/L NT-Pro-B Natriuret Pep 744 H (0-125) pg/mL Total Protein (6.4-8.2) g/dL Albumin (3.4-5.0) g/dL Lipase (16-77) U/L Urine Color (Yellow) Urine Appearance (Clear) Urine pH (5.0-8.0) Ur Specific [place] (1.010-1.020) Urine Protein (Negative) Urine Glucose (UA) (Negative) Urine Ketones (Negative) Ur Blood (Man) (Negative) Urine Nitrate (Negative) Urine Bilirubin (Negative) Urine Urobilinogen (0.2-1.0) mg/dL Leukocyte Esterase Rfl (Negative) KARELY/UL Urine RBC (0-2) /hpf Urine WBC (0-3) /hpf Urine Bacteria (None) /hpf Urine Mucus /lpf Influenza A (RT-PCR) (Negative) Influenza B (RT-PCR) (Negative) RSV (RT-PCR) (Negative) SARS-CoV-2 RNA (RT-PCR) (Negative) ECG Data EKG #1: ECG completion date: 06/08/24 ECG completion time: 07:36 Interpretation: sinus tachycardia with a heart rate of 120. Right axis deviation. Right ventricular hypertrophy. No ST elevation. Discharge Plan Discharge Clinical Impression: CHF (congestive heart failure), Influenza Patient Disposition: Still a Patient Condition: Stable Additional Instructions: transfer patient to [facility] patient has been accepted by Patient Language: Yoruba Prescriptions: No Action albuterol sulfate 90 mcg/actuation HFA aerosol inhaler 2 puff INHALATION Q8-10H PRN (Reason: Wheezing) alprazolam 1 mg tablet 0.5 mg PO TID PRN (Reason: Anxiety) ondansetron HCl 4 mg tablet 4 mg PO BID PRN (Reason: Nausea) cyclobenzaprine 10 mg tablet 10 mg PO TID PRN (Reason: muscle spasm) Qty: 20 0RF liraglutide [Victoza 3-Anatoliy] 0.6 mg/0.1 mL (18 mg/3 mL) pen injector See Rx Instructions .ROUTE .COMPLEX Rx Instructions: . Lagevrio (EUA) 200 mg capsule 800 mg PO Q12H 5 Days Qty: 40 0RF trazodone 100 mg tablet 100 mg PO BID hydroxyzine HCl 25 mg tablet 25 mg PO QID naproxen 500 mg tablet 500 mg PO BID PRN (Reason: pain) Qty: 14 0RF Rx Instructions: take with meals methocarbamol 750 mg tablet 1,500 mg PO TID Qty: 45 0RF triamcinolone acetonide 0.1 % ointment 1 applic topical TID 7 Days Qty: 15 0RF (DME) OneTouch Ultra Test Strip MISCELLANEOUS hydrocodone-acetaminophen 10-325 mg tablet 10 - 325 tablet PO DAILY carvedilol 3.125 mg tablet 3.125 mg PO DAILY famotidine 20 mg tablet 20 mg PO DAILY hydrochlorothiazide 25 mg tablet 25 mg PO DAILY metformin 500 mg tablet extended release 24 hr 500 mg PO DAILY insulin lispro [Humalog KwikPen Insulin] 100 unit/mL insulin pen 100 unit SUBCUT DIRECTED (DME) pen needle, diabetic [TRUEplus Pen Needle] 31 gauge x 5/16 needle MISCELLANEOUS duloxetine 30 mg capsule,delayed release(DR/EC) 30 mg PO DAILY lactulose [Enulose] 10 gram/15 mL solution 10 g PO DAILY pregabalin 200 mg capsule 200 mg PO DAILY insulin glargine [Lantus Solostar U-100 Insulin] 100 unit/mL (3 mL) insulin pen 100 unit SUBCUT DIRECTED (DME) [employer] G7 Sensor Device MISCELLANEOUS Trulicity 0.75 mg/0.5 mL pen injector 0.75 mg SUBCUT DAILY Humulin R U-500 (Conc) Kwikpen 500 unit/mL (3 mL) insulin pen 500 unit SUBCUT DIRECTED cyclobenzaprine 10 mg tablet 10 mg PO TID PRN (Reason: muscle spasm) Qty: 20 0RF omeprazole 20 mg capsule,delayed release(DR/EC) 20 mg PO BID Qty: 60 0RF Follow-up/Referrals: Librado,SONALI Huizar [Primary Care Provider] - Time of Disposition: 13:23
--- NOTE | 2024-06-08 07:21 | ECG_ITS ---
Test Date: 2024-06-08 07:36:42 Measurements Intervals [place] Rate: 120 P: 48 MS: 158 QRS: 136 QRSD: 82 T: 31 QT: 299 QTc: 424 Interpretive Statements SINUS TACHYCARDIA RIGHT AXIS DEVIATION POSSIBLE RIGHT VENTRICULAR HYPERTROPHY MINIMAL Q WAVES- INFERIOR LEADS CONSIDER ANTERIOR INFARCT, AGE INDETERMINATE BORDERLINE ST-T WAVE ABNORMALITY- ANTERIOR LEADS ABNORMAL ECG No previous ECG available for comparison Electronically Signed On 06-08-2024 07:48:05 METAL HARDENER by David Polo D.O.
--- NOTE | 2024-06-08 07:27 | PC.NURSE ---
covid culture sent to lab
[2024-06-08] MEDS: LACTATED RINGERS 500 ML 999 ML IV CONT (07:42)
[2024-06-08 07:45] LABS: Basophils Absolute Auto 0.04 K/mm3 (0.00-0.10); Basophils Percent Auto 0.8 % (0.0-1.0); Eosinophils Absolute Auto 0.01 K/mm3 (0.02-0.50); Eosinophils Percent Auto 0.2 % (1.0-6.0); Hematocrit 47.7 % (40.0-54.0); Hemoglobin 16.3 g/dL (14.0-18.0); Immature Granulocyte Absolute 0.02 K/mm3 (0.00-0.00); Immature Granulocyte Percent A 0.4 % (0.0-0.0); Immature Platelet Fraction Pct 3.4 % (1.0-7.0); Lymphocytes Absolute Auto 0.42 K/mm3 (1.10-4.50); Mean Corpuscular HGB Conc 34.2 g/dL (32-36); Mean Corpuscular Hemoglobin 29.4 pg (27.0-31.0); Mean Corpuscular Volume 86.1 fL (78.0-102.0); Mean Platelet Volume 10.4 fl (8.7-11.0); Monocytes Absolute Auto 0.57 K/mm3 (0.10-0.90); Monocytes Percent Auto 10.9 % (2.0-11.0); Neutrophils Absolute Auto 4.16 K/mm3 (1.70-7.20); Neutrophils Percent Auto 79.7 % (50.0-70.0); Platelet Count Result 74 K/mm3 (150-420); Red Blood Count 5.54 M/mm3 (4.70-6.10); Red Cell Distribution Width 15.9 % (11.6-14.4); White Blood Count 5.2 K/mm3 (4.8-10.8)
[2024-06-08 07:51] LABS: SARS-CoV-2 RNA PCR Negative (Negative)
[2024-06-08 07:52] LABS: Influenza A QL RT-PCR Positive (Negative); Influenza B QL RT-PCR Negative (Negative); RSV RNA, RT-PCR Negative (Negative)
[2024-06-08 08:01] LABS: INR 1.1; Prothrombin Time 11.8 Seconds (9.50-12.1)
[2024-06-08 08:02] LABS: Alanine Aminotransferase 17 U/L (16-63); Albumin Level 3.5 g/dL (3.4-5.0); Alkaline Phosphatase 100 U/L (46-116); Anion Gap 9 mmol/L (4-12); Aspartate Amino Transferase 21 U/L (15-37); Bilirubin Direct 0.6 mg/dL (0-0.2); Bilirubin,Total 3.7 mg/dL (0.00-1.00); Blood Urea Nitrogen 14 mg/dL (7-18); Calcium 8.5 mg/dL (8.5-10.1); Carbon Dioxide 26 mmol/L (21-32); Chloride 99 mmol/L (98-108); Estimated CRCL calculation 75 ml/min; Estimated Glomerular Filt Rate > 60; Glucose 326 mg/dL (70-99); Lipase 12 U/L (16-77); Osmolality Calculated 291 mOsm/kg (285-295); Potassium 4.3 mmol/L (3.5-5.1); Sodium 134 mmol/L (136-145)
[2024-06-08 08:04] LABS: Ammonia 43 umol/L (11-32); Troponin I 63.1 ng/L (0.00-60.4)
--- OUTSIDE RECORDS SUMMARY | 2024-06-08 08:04 | XMS_ITS | Encounter Summary ---
Author Organization [facility] Healthcare Address [address] [place] [address] Care Team Providers Care Traveling Missionary Name Role Phone Braydon Pavon Primary Care Provider [phone] Nikolay Lancaster MD Unavailable [phone] Simon Lundberg MD Primary Care Provider [phone] Nacho Rodriguez MD Unavailable [phone] Elian Gross MD Unavailable Braydon Pavon Primary Care Provider [phone] Encounter Details Date Type Department Care Team (Late st Contact Info) Description 09/14/2020 Telephone [facility] [address] [place] [place], [place] [id number] Trice Aldana, RT Social History Tobacco Use [...] on file Legal Sex Male 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 Gender Identity Male 10/29/2020 12:37 PM CDT Sexual Orientation Straight 10/29/2020 12 :37 PM CDT documented as of this encounter Plan of Treatment Not on file documented as of this encounter Visit Diagnoses Not on filedocumented in this encounter Care Teams Traveling Missionary Relationship Specialty Start Date End Date Braydon Pavon PA [address] [place] [address] PCP - General Family Practice 05/09/20 05/19/21 Simon Lundberg MD [address] [place] [address] PCP - General Family Medicine 05/20/21 08/22/21 Braydon Pavon PA [address] [place] [address] PCP - General 08/23/21 Nikolay Lancaster MD [address] [place] [address] 05/09/20 05/19/21 [place] [id number] [address] [facility] [address], [place] [address] Consulting Physician Endocrinology 05/20/21 [place] [id number] [address] [facility] [address], [place] [address] Consulting Physician Internal Medicine 05/20/21 documented as of this encounter
--- OUTSIDE RECORDS SUMMARY | 2024-06-08 08:04 | XMS_ITS | Clinical Summary ---
Author Organization [facility] Address [address] [place] [address] Phone Care Team Providers Care Construction Equipment Overhauler Name Role Phone Braydon Pavon VAL Primary Care Provider [phone] Vikram Mora MD Unavailable Riddhi Bello APRN, PERL SOFTWARE ENGINEER Unavailable Allergies Active Allergy Reactions Criticality Noted [...] as needed. 3 Active ergocalciferol (VITAMIN D) 99278 UNIT Capsule Take 50,000 Units by mouth. Active Insulin Pen Needle (B-D ULTRAFINE III SHORT PEN) 31G X 8 MM Misc 1 Active Insulin Pen Needle (B-D ULTRAFINE III SHORT PEN) 31G X 8 MM Misc 1 Each by Subcutaneous route. 1 Active Insulin Pen Needle ([place]) 32G X 4 MM Misc Inject 3 [...] 10 Tablet 4 Active Continuous Blood Gluc [employer] (Dexcom G7 [employer]) Device Check blood glucose before each meal and at bedtime 1 Each 4 Active HYDROcodone-bella taminophen ([place]) 10-325 MG Tablet Take 1 Tablet by [...] on file Legal Sex Male 10:58 AM SEMICONDUCTOR ENGINEER Gender Identity Not on file Sexual [...] W/ ESTIMATED GLUCOSE STAT 05/20/2023 10:44 AM SEMICONDUCTOR ENGINEER from Last 3 Months or Most Recently Relevant to Health Maintenance Results * (ABNORMAL) CMP (Comprehensive Metabolic Panel) (11/13/2023 6:40 PM CDT) SODIUM 139 136 - 145 mmol/L 11/13/2023 7:25 PM CDT [facility] POTASSIUM 3.7 3.5 - 5.1 mmol/L 11/13/2023 7:25 PM CDT [facility] CHLORIDE 105 98 - 107 mmol/L 11/13/2023 7:25 PM CDT [facility] CO2, VENOUS 24 22 - 30 mmol/L 11/13/2023 7:25 PM CDT [facility] ANION GAP 13.7 <18.0 mmol/L 11/13/2023 7:25 PM CDT [facility] GLUCOSE 188(H) 70 - 99 mg/dL 11/13/2023 7:25 PM CDT [facility] BUN 11 8 - 26 mg/dL 11/13/2023 7:25 PM CDT [facility] CREATININE, BLOOD 0.84 0.70 - 1.30 mg/dL 11/13/2023 7:25 PM CDT [facility] BUN/CREATININE RATIO 13 12 - 20 ratio 11/13/2023 7:25 PM CDT [facility] TOTAL PROTEIN 7.3 6.3 - 8.2 g/dL 11/13/2023 7:25 PM CDT [facility] ALBUMIN 3.9 3.5 - 5.0 g/dL 11/13/2023 7:25 PM CDT [facility] A/G RATIO 1.1 1.0 - 2.2 11/13/2023 7:25 PM CDT [facility] CALCIUM 9.4 8.7 - 10.5 mg/dL 11/13/2023 7:25 PM CDT [facility] T BILI 3.6(H) 0.2 - 1.2 mg/dL 11/13/2023 7:25 PM CDT [facility] SGOT (AST) 27 5 - 34 U/L 11/13/2023 7:25 PM CDT [facility] SGPT (ALT) 17 0 - 55 U/L 11/13/2023 7:25 PM CDT [facility] ALKALINE PHOSPHATASE 90 40 - 150 U/L 11/13/2023 7:25 PM CDT [facility] GFR, ESTIMATED >60 >=60 11/13/2023 7:25 PM CDT [facility] Comment: Creatinine Clearance is the preferred criteria for selecting drug dose adjustments in renally impaired patients. ??The GFR is provided as additional pertinent clinical information. GFR is reported in mL/min/1.73 sq m. Calculation based on the Chronic Kidney Disease Epidemiology Collaboration (CKD- EPI) equation refit without adjustment for race. GFR, EST. >60 >=60 024 7:25 PM CDT [facility] GFR, EST. NONAFRICAN >60 >=60 11/13/2023 7:25 PM CDT [facility] Blood Venipuncture / Unknown 11/13/2023 6:40 PM CDT 11/13/2023 7:00 PM CDT us Lul Junior DO CHEMISTRY ORDERABLES Fi nal Result [facility] [address] [place] [address] * (ABNORMAL) Hemoglobin A1C (05/20/2023 10:44 AM SEMICONDUCTOR ENGINEER) HGB-A1C 11.6(H) 4.0 - 6.0 % 05/20/2023 12:30 PM SEMICONDUCTOR ENGINEER [facility] Est Average Glucose 286.2 mg/dL 05/20/2023 12:30 PM SEMICONDUCTOR ENGINEER [facility] Blood Venipuncture / Unknown 05/20/2023 10:44 AM SEMICONDUCTOR ENGINEER 05/20/2023 11:01 AM SEMICONDUCTOR ENGINEER Narrative [facility] - 05/20/2023 12:30 PM SEMICONDUCTOR ENGINEER HEMOGLOBIN A1C: DIABETIC PATIENTS: WELL-CONTROLLED: ?? 6.2 - 7.0 INTERMEDIATE WELL-CONTROLLED: ??7.0 - 9.0 POORLY-CONTROLLED: ??>9.0 us Felicitas Luz BLOCK CUTTER, PERL SOFTWARE ENGINEER CHEMISTRY ORDERABLES Final Result [facility] [address] [place] [address] from Last 3 Months or Most Recently Relevant to Health Maintenance Insurance MEDICAID [facility] Care Teams Construction Equipment Overhauler Relationship Specialty Start Date End Date Braydon Pavon PAC [address] [place] [address] PCP - General Physician Technical Support Engineer 06/22/18 Vikram Mora MD [address] [id number] Consulting Physician Endocrinology 05/21/23 Riddhi Bello APRN, PERL SOFTWARE ENGINEER [address] [place] [address] Nurse Practitioner Advanced Practice Nurse 02/10/23
--- OUTSIDE RECORDS SUMMARY | 2024-06-08 08:04 | XMS_ITS | Patient Health Summary ---
Author Organization [facility] Address [address] [facility] [place] [address] Care Team Providers Care Information Technology Manager Name Role Phone Braydon Pavon Primary Care Provider [phone] Note from [facility],non-owned Affiliates and Associated Physician Practices is amultiple site organization consisting of ambulatory clinics and hospital sitesin [place], [place], [place] and [place]. This disclosure is being madepursuant to the Care Everywhere program and may not contain all information available regarding this patient. Last updated 18.[facility] Allergies * Aztreonam In Dextrose(Urticaria) -Medium Criticality [...] to dissolve on the tongue * HYDROcodone-acetaminophen (Cecil) 7.5-325 MG tablet Take 1 (one) tablet [...] 102.1 kg (225 lb) 05/18/2024 3:55 PM CLINICAL IMPLEMENTATION SPECIALIST Height 170.2 cm (5' 7 ) 05/18/2024 3:55 PM CLINICAL IMPLEMENTATION SPECIALIST Body Mass Index 35.24 05/18/2024 3:55 PM CLINICAL IMPLEMENTATION SPECIALIST Procedures * [place] ED EGD FLEX TRANSORAL DX(Performed 02/12/2024) Performed [...] (transjugular intrahepatic portosystemic shunt), Fatty liver * [id number] BLOOD(Performed 07/14/2023) Performed for Cirrhosis of liver [...] Procedure Code(s): ? --- Professional --- ? 96854, Esophagogastroduo denoscopy, flexible, transoral; diagnostic, ? including collection of specimen(s) by brushing or washing, when ? performed (separate procedure) Diagnosis Code(s): ?--- Professional --- ?I85.00, Esophageal varices without bleeding ?K22.89, Other specified disease of esophagus ?K76.6, Portal hypertension ?K31.89, Other diseases of stomach and duodenum ?K31.7, Polyp of stomach and duodenum CPT copyright 2021 [employer]. All rights reserved. The codes documented in this report are preliminary and upon fx artist review may be revised to meet current compliance requirements. Gaby Mistry MD 02/12/2024 2:13:14 PM This report has been signed electronically. Note Initiated On: 02/12/2024 1:40 PM Number of Addenda: 0 ? [facility] ? [address] [place] [address] [facility] 02/12/2024 1:40 PM CDT Gaby Mistry MD GI PROCEDURE ORDERAB LES [facility] * (ABNORMAL) GLUCOSE - POINT OF CARE (02/12/2024 1:17 PM CDT) Only the most recent of2 resultswithin the time period is included. [facility] Glucose WB/POC 277(H) 70 - 115 mg/dL 02/12/2024 1:18 PM CDT [facility] Specimen Type Cap Fingerstick 2023 1:18 PM CDT [facility] Blood BLOOD SPECIMEN / Unknown 02/12/2024 1:17 PM CDT 02/12/2024 1:18 PM CDT Steve Bedolla MD LAB - POINT OF CARE ORDERABLES [address] [address], [place] [phone] * PT-INR [facility] (12/29/2023 1:12 PM CDT) Only the most recent of2 resultswithin the time period is included. [facility] PT 13.9 12.1 - 14.8 Seconds 12/29/2023 2:29 PM CDT [facility] INR 1.1 See Comment 12/29/2023 2:[address] [facility] Comment:The suggested therap eutic range for standard coumadin (warfarin) therapy is an INR of 2.0-3.0. For high-risk patients (Mechanical Mitral Valve Prosthesis, etc.), the suggested prophylactic therapeutic range is an INR of 2.5-3.5. Blood BLOOD SPECIMEN / Unknown Lab Venipuncture / Unknown 12/29/2023 1:12 PM CDT 12/29/2023 1:26 PM CDT Steve Bedolla MD LAB - COAGULATION OR DERABLES [facility] [address] [place] [id number], [place] [phone] * ALPHA FETOPROTEIN BLOOD TUMOR MARKER (12/29/2023 1:12 PM CDT) Only the most recent of2 resultswithin the time period is included. [facility] Alpha-Fetoprote in Tumor Marker 2.2 <=8.3 ng/mL 12/29/2023 2:[address] [facility] Comment: AFP values will vary depending on testing procedure used. Results are not comparable across different methods. AFP values obtained by [facility] using an [place] Alinity Immunoassay. Blood BLOOD SPECIMEN / Unknown Lab Venipuncture / Unknown 12/29/2023 1:12 PM CDT 12/29/2023 1:36 PM CDT Steve Bedolla MD LAB - CHEMISTRY LIONEL WHITT [facility] [address] [place] [address], [facility] [phone] * (ABNORMAL) CBC WITH DIFFERENTIAL (12/29/2023 1:12 PM CDT) Only the most recent of2 resultswithin the time period is included. [facility] WBC 4.2 4.0 - 10.7 x10E9/L 12/29/2023 [...] 17.0 - 47.0 % 12/29/2023 1:52 PM [facility] Monocyte % 9.2 3.0 - 11.0 % 12/29/2023 1:52 PM [facility] Eosinophil % 3.5 0.0 - 7.0 % 12/29/2023 1:52 PM [facility] Basophil % 1.2 0.0 - 1.6 % 12/29/2023 1:52 PM [facility] Immature Granulocytes % 0.2 0.0 - [...] Bedolla MD LAB - HEMATOLOGY ORD ERABLES [facility] [address] [place] [address], [facility] [phone] * (ABNORMAL) COMPREHENSIVE METABOLIC PANEL (12/29/2023 1:12 PM [facility]) Only the most recent of2 resultswithin the time period is included. BUN 13 7 - 26 mg/dL 12/29/2023 2:07 PM [facility] Creatinine 0.73 0.71 - 1.16 mg/dL [...] 1.1 - 2.3 12/29/2023 2:[address] [facility] eGFR by CKD-EPI >90 >=90 mL/min/1.7 3 m2 12/29/2023 2:[address] [facility] Blood BLOOD SPECIMEN / Unknown Lab Venipuncture / Unknown 12/29/2023 1:12 PM CDT 12/29/2023 1:37 PM CDT Steve Bedolla MD LAB - CHEMISTRY LIONEL WHITT Performing Organization Address [facility] Co de Phone Number [facility] [address] [place] [address], [employer] [phone] * HEPATITIS B SURFACE ANTIBODY (12/29/2023 1:12 PM CDT) Hepatitis B Virus Surface Antibody Non-react chetna Non-react chetna 12/29/2023 2:[address] [facility] Comment: < 8 mIU/mL Hepatitis B surface Antibody (HBsAb). Nonreactive for HBsAb - individual is considered not immune to Hepatitis B Virus infection. Hepatitis B Surface Antibody Quantitative 0.3 <8.0 mIU/mL 12/29/2023 2:[address] [facility] Comment: Hepatitis B Surface Antibody Numeric Result Interpretation: ? Nonreactive: ?<8.0 mIU/mL ? Indeterminate: ??8.0 - 12.0 mIU/mL ? Reactive: ?>12.0 mIU/mL ? Blood BLOOD SPECIMEN / Unknown Lab Venipuncture / Unknown 12/29/2023 1:12 PM CDT 12/29/2023 1:26 PM CDT Steve Bedolla MD LAB - CHEMISTRY LIONEL WHITT Performing Organization Address [facility]/ZIP Co de Phone Number [facility] [address] [place] [address], [place] [phone] * BILIRUBIN DIRECT (12/29/2023 1:12 PM CDT) Only the most recent of2 resultswithin the time period is included. Pathologist [facility] Bilirubin Conjugated 0.5 0.1 - 0.5 mg/dL 12/29/2023 2:07 PM CDT [facility] Blood BLOOD SPECIMEN / Unknown Lab Venipuncture / Unknown 12/29/2023 1:12 PM CDT 12/29/2023 1:37 PM CDT Steve Bedolla MD LAB - CHEMISTRY LIONEL WHITT Performing Organization Address City/[facility]/ZIP Co de Phone Number [facility] [address] [address], [facility] [phone] * HEPATITIS A ANTIBODY (12/29/2023 1:12 PM CDT) Pathologist [facility] Hepatitis A Virus Antibody Total Negative Negative 12/31/2023 8:56 AM CDT [employer] ([facility]) Comment: Performed By: [employer] [address] [place] [address] Boiler House Inspector: Benny Desai MD, PhD CLIA Number: [id number] Blood BLOOD SPECIMEN / Unknown Lab Venipuncture / Unknown 12/29/2023 1:12 PM CDT 12/29/2023 1:26 PM CDT Steve Bedolla MD LAB - CHEMISTRY LIONEL WHITT Performing Organization Address City/[facility]/ZIP Co de Phone Number [employer] ([facility]) [address] [place] [address], [facility] * US TIPS W ABDOMEN LIMITED (07/24/2023 [...] Detected None Detected 07/16/2023 10:11 PM CDT [facility] [employer] ([facility]) Comment: If suspicion of connective tissue disease is strong and NILE EIA is negative, consider testing for NILE by IFA ([id number]). INTERPRETIVE INFORMATION: Anti-Nuclear Antibodies (NILE), IgG by RAMOS Antinuclear Antibodies (NILE), IgG by RAMOS: NILE specimens are screened using enzyme-linked immunosorbent assay (RAMOS) methodology. All RAMOS results reported as Detected are further tested by indirect fluorescent assay (IFA) using HEp-2 substrate with an IgG-specific conjugate. The NILE RAMOS screen is designed to detect antibodies against dsDNA, histones, SS-A (Ro), SS-B (La), Mclean, Mclean/STEEL HANGER, Scl-70, Evelina-1, centromeric proteins, other antigens extracted from the HEp-2 cell nucleus. NILE RAMOS assays have been reported to have lower sensitivities than NILE IFA for systemic autoimmune rheumatic diseases (SARD). Negative results do not necessarily rule out SARD. Performed By: [employer] [address] Boiler House Inspector: Benny Desai MD, PhD CLIA Number: [id number] Blood BLOOD SPECIMEN / Unknown Lab Venipuncture / Unknown 07/14/2023 4:58 PM CDT 07/14/2023 5:15 PM CDT Steve Bedolla MD LAB - CHEMISTRY LIONEL WHITT Performing Organization Address City/[facility]/ZIP Co de Phone Number [facility] ([facility]) [address] [place] [id number], [facility] * [id number] BLOOD (07/14/2023 4:58 PM CDT) Pathologist [facility] Nwhqy-3-Lwwigv ypsin 182 90 - 200 mg/dL 07/14/2023 5:[address] [facility] Blood BLOOD SPECIMEN / Unknown Lab Venipuncture / Unknown 07/14/2023 4:58 PM CDT 07/14/2023 5:15 PM CDT Steve Bedolla MD LAB - CHEMISTRY LIONEL WHITT [address] [address], [facility] [phone] * IRON + TRANSFERRIN PANEL (07/14/2023 4:58 PM CDT) Pathologist [facility] Iron 118 50 - 175 ug/dL 07/14/2023 5:[address] [facility] Transferrin 309 174 - 382 mg/dL 07/14/2023 5:[address] [facility] Transferrin Saturation % 31 16 - 50 % 07/14/2023 5:[address] [facility] TIBC Calculated 386 240 - 450 ug/dL 07/14/2023 5:[address] [facility] Blood BLOOD SPECIMEN / Unknown Lab Venipuncture / Unknown 07/14/2023 4:58 PM CDT 07/14/2023 5:15 PM CDT Steve Bedolla MD LAB - CHEMISTRY LIONEL WHITT Performing Organization Address City/[facility]/ZIP Co de Phone Number [address] [address], [place] [phone] * FERRITIN (07/14/2023 4:58 PM CDT) Ferritin 71 22 - 275 ng/mL 07/14/2023 5:[address] [facility] Blood BLOOD SPECIMEN / Unknown Lab Venipuncture / Unknown 07/14/2023 4:58 PM CDT 07/14/2023 5:15 PM CDT Steve Bedolla MD LAB - CHEMISTRY LIONEL WHITT Performing Organization Address City/[facility]/ZIP Co de Phone Number [address] [address], [place] [phone] * CULTURE URINE (10/04/2018 2:34 PM CDT) Culture Urine 10,000-50,000 CFU/mL urogenital jc JUANCARLOS 10/06/2018 10:31 AM CDT [facility] Urine URINE SPECIMEN OBTAINED BY CLEAN CATCH PROCEDURE / Unknown Collection / Unknown 10/04/2018 2:34 PM CDT 10/04/2018 8:11 PM CDT Trice Blankenship APRN-SENIOR DATA ARCHITECT LAB - MICROBIOLO GY ORDERABLES [facility] [address] [place] [address], [facility] [phone] * URINALYSIS AUTO - POINT OF CARE (AMB) [facility] (10/04/2018 1:23 PM CDT) Glucose UA 3 Bilirubin UA POCT neg Ketones UA POCT trace Specific Safford UA 1.020 Blood Urine POCT neg pH UA 6.0 Protein UA neg Urobilinogen UA 1 Nitrite UA neg WBC UA neg Urine URINE / Unknown 10/04/2018 1 :23 PM CDT Trice Blankenship APRN-SENIOR DATA ARCHITECT LAB - POINT OF C ARE ORDERABLES * LAB RESULTS ORDER (06/28/2018 9:29 AM CLINICAL IMPLEMENTATION SPECIALIST) Only the most recent of2 resultswithin the time period is included. Narrative 06/28/2018 9:29 AM CLINICAL IMPLEMENTATION SPECIALIST Ordered by an unspecified provider. Scanned Document [...] OF CARE (AMB) [facility] (05/24/2018 8:30 AM CLINICAL IMPLEMENTATION SPECIALIST) Only the most recent of2 resultswithin the time period is included. Hemoglobin A1c POCT 8.2 BLOOD SPECIMEN / Unknown 05/24/2018 8:30 AM CLINICAL IMPLEMENTATION SPECIALIST Edmond Choi MD LAB - POINT OF CARE ORDERABLES Care Teams Information Technology Manager Relationship Specialty Start Date End Date Braydon Pavon PA [address] [place] [address] PCP - General Physician Case Hardener 07/14/23
--- OUTSIDE RECORDS SUMMARY | 2024-06-08 08:04 | XMS_ITS | Encounter Summary ---
Author Organization [facility] Address [address] [place] [address] Care Team Providers Care Diamond Finishing Supervisor Name Role Phone Braydon Pavon Primary Care Provider [phone] Nikolay Lancaster MD Unavailable [phone] Simon Lundberg MD Primary Care Provider [phone] Nacho Rodriguez MD Unavailable [phone] Elian Gross MD Unavailable Braydon Pavon Primary Care Provider [phone] Encounter Details Date Type Department Care Team (Late st Contact Info) Description 10/05/2020 Telephone [facility] [address] [place], [place] [id number] Trice Aldana, RT Social History Tobacco Use [...] on file Legal Sex Male 2:52 PM HAIR BALER Gender Identity Male 10/29/2020 12:37 PM CDT Sexual Orientation Straight 10/29/2020 12 :37 PM CDT documented as of this encounter Plan of Treatment Not on file documented as of this encounter Visit Diagnoses Not on filedocumented in this encounter Care Teams Diamond Finishing Supervisor Relationship Specialty Start Date End Date Braydon Pavon PA [address] [place] [address] PCP - General Family Practice 05/09/20 05/19/21 Simon Lundberg MD [address] [place] [address] PCP - General Family Medicine 05/20/21 08/22/21 Braydon Pavon PA [address] [place] [address] PCP - General 08/23/21 Nikolay Lancaster MD [address] [place] [address] 05/09/20 05/19/21 [place] [address] [address] [facility] [address], [place] [address] Consulting Physician Endocrinology 05/20/21 [place] [address] [address] [facility] [address], [place] [address] Consulting Physician Internal Medicine 05/20/21 documented as of this encounter
--- OUTSIDE RECORDS SUMMARY | 2024-06-08 08:04 | XMS_ITS | Clinical Summary ---
Author Organization [facility] Address [address] [place] [address] Care Team Providers Care Employment Coach Name Role Phone Braydon Pavon Primary Care [...] (two) times daily. Active vitamin D2, ergocalciferol, 16475 UNITS capsule Take 1 capsule (50,000 Units total) by mouth every 30 (thirty) days. Active Insulin Pen Needle (PEN NEEDLES) 32G X 4 MM Misc Inject 3 times daily 08/04/19 20 Active ONE TOUCH ULTRA TEST STRIPS test stripIndications:T ype 2 diabetes mellitus with hyperglycemia, with long-term current use of insulin ([facility]) Test 4 times daily 200 [...] hyperglycemia, with long-term current use of insulin ([facility]) Inject 0.4 mLs (200 Units total) into the skin 3 (three) times daily before meals. 18 mL 11 02/19/20 24 Active Additional Information Patient taking differently:200 Units Subcutaneous 3 times daily before meals,Pt taking 200 units three times, Reported on 05/31/2024 Continuous Glucose Sensor ([employer] G7 SENSOR) MiscIndications:Ty pe 2 diabetes mellitus with hyperglycemia, with long-term current use of insulin ([facility]) CHANGE SENSOR EVERY 10 DAYS 3 [...] hyperglycemia, with long-term current use of insulin ([facility]) Take 1 tablet (500 mg total) by mouth daily with supper. 90 tablet 1 05/31/19 25 Active Active Problems Problem Noted Date Diagnosed Date Diabetic neuropathy associat ed with type 2 diabetes mellitus ([facility]) 10/29/2020 Lumbar degenerative disc disease 05/23/2019 Essential hypertension 07/21/2018 TRACY (obstructive sleep apnea) 09/14/2016 Thrombocytopenia 09/14/2016 Esophageal varices ([facility]) 09/09/2016 Hepatic encephalopathy ([facility]) 017 Type 2 diabetes mellitus wit h hyperglycemia, with long-term current use of insulin ([facility]) 09/09/2016 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 s/p TIPS in 2015. -RUQ today showing TIPS with slower velocity compared to 08/2017 but still patent, rec close FU. -rifaximin -holding lactulose for diarrhea -should have BB outpt Resolved Problems Problem Noted Date Diagnosed Date Resolved Date Bacterial endocarditis ([facility]) 05/14/2020 06/05/2024 BLAND (nonalcoholic steatohepatitis) 07/21/2018 04/05/2019 Diabetes mellitus, type 2 ([facility]) 02/02/2018 06/05/2024 Morbid obesity ([facility]) 12/09/2016 06/05/2024 History of upper gastrointestinal hemorrhage 6 04/05/2019 Encounters Date Type Department Care Team Description 05/31/2024 12:00 PM COLUMNIST Office Visit [facility] Diabetes and Endocrinology - [address] [phone] Eva Power MD Type 2 Diabetes 05/31/2024 Travel 05/10/2024 Telephone [facility] Diabetes and Endocrinology - [address] [phone] Eva Power MD Called To Cancel Office Appt. 03/30/2024 Telephone [facility] Diabetes and Endocrinology - [address] [address] Eva Power MD Reschedule from [...] Comments Blood Pressure 134/77 05/31/2024 8:59 AM COLUMNIST Pulse 84 05/31/2024 8:47 AM COLUMNIST Temperature 36.8 ??C (98.3 ??F) 02/15/2024 1:54 PM CD T Respiratory Rate 11 01/23/2024 12:30 AM CDT Oxygen Saturation 96% 05/31/2024 8:47 AM COLUMNIST Inhaled Oxygen Concentration - - Weight 100.2 kg (221 lb) 02/15/2024 1:54 PM CDT Height 172.7 cm (5' 8 ) 05/31/2024 8:47 AM COLUMNIST Body Mass Index 33.6 02/15/2024 1:54 PM CDT Plan of Treatment Upcoming Encounters Date Type Department Care Team (Late st Contact Info) Description 08/30/2024 12:00 PM CDT Office Visit [facility] Diabetes and Endocrinology - [place] [address] [place] [address] Eva Power MD [address] [place], [place] [address] Health Maintenance Due Date Last Done Comments [...] 12/08/2020 Influenza Adult (#1) 2024 PHQ-2 (Physician [place]) 05/04/2024 02/15/2024 Hemoglobin A1C 08/29/2024 05/31/2024, 11/02, [...] this topic Medical Devices Implanted Type Area Occupational Therapy Technician Device Identifier Shelf Expiration Date Model / Serial / Lot [employer] Stent-01/02/2021 Implanted: 021 (Quantity not on file) Stent Abdomen [employer] R BARD [id number] / / Description:Non-clinical silvia ting demonstrated that [...] of 720 Gauss/cm or less ?? Maximum tvphm-eydw-nukzvnwh specific absorption rate (IVANA) of 2-W/kg for 15 minutes of scanning for patient landmarks above the umbilicus. ?? Maximum WB-IVANA of 1 W/kg for 15 min. of scanning for patient landmarks below the umbilicus. Procedures Procedure Name Priority Date/Time Associated Diagnosis Comments ALBUMIN URINE RANDOM W/CREATININE Routine 05/31/2024 10:36 AM COLUMNIST Type 2 diabetes mellitus with hyperglycemia, with long-term current use of insulin ([facility]) COLLECT.CAPILLARY (FNGR,HEEL,EAR) Routine 05/31/2024 8:47 AM COLUMNIST Type 2 diabetes mellitus with hyperglycemia, with long-term current use of insulin ([facility]) GLUCOSE BLOOD, MONITOR DEVICE Routine 05/31/2024 Type 2 diabetes mellitus with hyperglycemia, with long-term current use of insulin ([facility]) HEMOGLOBIN, GLYCOSYLATED Routine 05/31/2024 Type 2 diabetes mellitus with hyperglycemia, with long-term current use of insulin ([facility]) from Last 3 Months Results * ALBUMIN/CREATININE RATIO, RANDOM URINE (05/31/2024 10:36 AM COLUMNIST) MICROALBUMIN (U) 10.4 <20 MG/L 05/31/19 7:37 PM COLUMNIST [facility] CREATININE RANDOM (U) 47.4 MG/DL 05/31/2024 7:37 PM COLUMNIST [facility] ALBUMIN/CREAT RATIO 21.9 <30 MG/G 05/31/2024 7:37 PM COLUMNIST [facility] URINE SPECIMEN / Unknown 05/31/2024 10:36 AM COLUMNIST us Eva Power MD URINE ORDERABLES Final Result -[facility] [address] [place] [address], * HEMOGLOBIN, GLYCOSYLATED (05/31/2024) HGB A1C 10.3 % MG-[address], ELIM 05/31/2024 us Eva Power MD LABORATORY Final Result Performing Organization Address City/[facility]/ZIP Co de Phone Number [address], [address] [address], [place] [phone] * (ABNORMAL) GLUCOSE BLOOD, MONITOR DEVICE (05/31/2024) GLUCOSE WHOLE BLOOD 323(A) 70 - 100 mg/dL [address] ELIM 05/31/2024 Eva Power MD LABORATORY Final Result Performing Organization Address [facility] de Phone Number [address], [address] [address], [place] [phone] from Last [address] [place] [address] [address] Care Teams Employment Coach Relationship Specialty Start Date End Date Braydon Pavon PA [address] [place] [address] PCP - General PHYSICIAN FIRE SPRINKLER INSPECTOR 03/02/19
--- OUTSIDE RECORDS SUMMARY | 2024-06-08 08:04 | XMS_ITS | Referral Summary ---
Author Organization [facility] Address [address] [place] [address] Care Team Providers Care Press Assistant And Feeder Name Role Phone Braydon Pavon Primary Care Provider [phone] Source Comments [facility],non-owned Affiliates and Associated Physician Practices is amultiple site organization consisting of ambulatory clinics and hospital sitesin [place], [place], [place] and [place]. This disclosure is being madepursuant to the Care Everywhere program and may not contain all information available regarding this patient. Last updated 18.[facility] Encounters Date Type Department Care [...] dissolve on the tongue Active HYDROcodone-acetami nophen ([place]) 7.5-325 MG tablet Take 1 (one) tablet [...] 102.1 kg (225 lb) 05/18/2024 3:55 PM TC OPERATOR Height 170.2 cm (5' 7 ) 05/18/2024 3:55 PM TC OPERATOR Body Mass Index 35.24 05/18/2024 3:55 PM TC OPERATOR Functional Status Functional Status Response Date of [...] (ABNORMAL) COMPREHENSIVE METABOLIC PANEL (12/29/2023 1:12 PM [facility]) BUN 13 7 - 26 mg/dL 12/29/2023 2:07 PM [facility] Creatinine 0.73 0.71 - 1.16 mg/dL 12/29/2023 2:07 PM [facility] Sodium 138 136 - 145 mmol/L 12/29/2023 2:07 PM [facility] Potassium 4.8(H) 3.5 - 4.5 mmol/L 12/29/2023 2:07 PM [facility] Chloride 105 98 - 107 mmol/L 12/29/2023 2:07 PM [facility] CO2 25 22 - 29 mmol/L 12/29/2023 2:07 PM [facility] Glucose 362(H) 70 - 115 mg/dL 12/29/2023 2:07 PM [facility] Calcium 9.8 8.4 - 10.2 mg/dL 12/29/2023 2:07 PM [facility] Protein Total 7.0 6.0 - 8.3 g/dL 12/29/2023 2:07 PM [facility] Albumin 3.7 3.4 - 5.0 g/dL 12/29/2023 2:07 PM [facility] Bilirubin Total 3.2(H) 0.2 - 1.2 mg/dL 12/29/2023 2:07 PM [facility] Alkaline Phosphatase 89 40 - 150 U/L 12/29/2023 2:07 PM [facility] ALT 16 5 - 55 U/L 12/29/2023 2:07 PM [facility] AST 23 5 - 34 U/L 12/29/2023 2:07 PM [facility] Anion Gap 8 6 - 16 12/29/2023 2:07 PM [facility] BUN/Creatinine Ratio 18 7 - 23 12/29/2023 2:07 PM CDT [facility] Osmolality Calculated 301(H) 275 - 295 mOsm/kg 12/29/2023 2:07 PM CDT [facility] Albumin/Globulin Ratio 1.1 1.1 - 2.3 12/29/2023 2:07 PM CDT [facility] eGFR by CKD-EPI >90 >=90 mL/min/1.7 3 m2 12/29/2023 2:07 PM CDT [facility] Blood BLOOD SPECIMEN / Unknown Lab Venipuncture / Unknown 12/29/2023 1:12 PM CDT 12/29/2023 1:37 PM CDT Steve Bedolla MD LAB - CHEMISTRY LIONEL WHITT [facility] Organization Address City/State/ZIP Co de Phone Number [facility] [address] [place] [address], [facility] [phone] * HEMOGLOBIN A1C - POINT OF CARE (AMB) [facility] (05/24/2018) Hemoglobin A1c POCT 8.2 BLOOD SPECIMEN / Unknown 05/24/2018 Edmond Choi MD LAB - POINT OF CARE ORDERABLES from Last 3 Months or Most Recently Relevant to Health Maintenance Care Teams Press Assistant And Feeder Relationship Specialty Start Date End Date Braydon Pavon PA [address] [place] [phone] PCP - General Physician Epic Application Coordinator 07/14/23
--- OUTSIDE RECORDS SUMMARY | 2024-06-08 08:04 | XMS_ITS | Clinical Summary ---
Author Organization [facility] Address [address] [place] [address] Care Team Providers Care Bottom Stainer Name Role Phone Braydon Pavon Primary Care Provider Source Comments [facility],non-owned Affiliates and Associated Physician Practices is amultiple site organization consisting of ambulatory clinics and hospital sitesin [place], [place], [place] and [place]. This disclosure is being madepursuant to the Care Everywhere program and may not contain all information available regarding this patient. Last updated 18.[facility] [place] Allergies Active Allergy Reactions Criticality Noted Date [...] dissolve on the tongue Active HYDROcodone-acetami nophen ([place]) 7.5-325 MG tablet Take 1 (one) tablet [...] 102.1 kg (225 lb) 05/18/2024 3:55 PM INSTRUMENT ROOM TECHNICIAN Height 170.2 cm (5' 7 ) 05/18/2024 3:55 PM INSTRUMENT ROOM TECHNICIAN Body Mass Index 35.24 05/18/2024 3:55 PM INSTRUMENT ROOM TECHNICIAN Plan of Treatment Health Maintenance Due Date [...] - 26 mg/dL 12/29/2023 2:07 PM CDT [facility] Creatinine 0.73 0.71 - 1.16 mg/dL 12/29/2023 2:07 PM CDT [facility] Sodium 138 136 - 145 [...] 18 7 - 23 12/29/2023 2:07 PM [facility] Osmolality Calculated 301(H) 275 - 295 mOsm/kg 12/29/2023 2:07 PM [facility] Albumin/Globulin Ratio 1.1 1.1 - 2.3 12/29/2023 2:07 PM [facility] eGFR by CKD-EPI >90 >=90 mL/min/1.7 3 m2 12/29/2023 2:07 PM [facility] Blood BLOOD SPECIMEN / Unknown Lab Venipuncture / Unknown 12/29/2023 1:12 PM CDT 12/29/2023 1:37 PM CDT Steve Bedolla MD LAB - CHEMISTRY LIONEL WHITT [facility] [address] [place] [address], [facility] [phone] * HEMOGLOBIN A1C - POINT OF CARE (AMB) [facility] (05/24/2018) Hemoglobin A1c POCT 8.2 BLOOD SPECIMEN / Unknown 05/24/2018 Edmond Choi MD LAB - POINT OF CARE ORDERABLES from Last 3 Months or Most Recently Relevant to Health Maintenance Care Teams Bottom Stainer Relationship Specialty Start Date End Date Braydon Pavon PA [address] [place] [address] PCP - General Physician Spring Up Supervisor 07/14/23
--- OUTSIDE RECORDS SUMMARY | 2024-06-08 08:04 | XMS_ITS | Continuity of Care Document ---
Author Organization [facility] Address [address] [facility] [place] [address] Phone Care Team Providers Care Type Mapper Name Role Phone Roosevelt Mcgee MD Unavailable [...] route every day 5 MG - Active [place] 10 mg-325 mg tablet take 1 tablet [...] Copied on Encounter OFFICE/OUTPA TIENT VISIT, EST [facility], [address], [place], [id number], [place] tel:[phone] [facility] anxiety1 (chief complaint) DM (chief complaint) liver cirrhosis (chief complaint) GERD1 (chief complaint) chronic pain (chief complaint) Type 2 diabetes mellitus without complicationsGenera lized Anxiety DisorderOther cirrhosis of liverChronic pain syndrome 2-201 [address] [place], [id number] , . tel:[phone] Referring Provider: Roosevelt Mcgee [address], [place], [place], [id number]. tel:[phone] Family History Family Member Type Diagnosis Age [...] takes lantus, tradejnta, humalog. His BG is [id number]. Pt sees endo for his DM. Pt [...] Mental Status Date Cognitive Assessment Orientation - [place] ed to time, place, person, situation.
--- OUTSIDE RECORDS SUMMARY | 2024-06-08 08:05 | XMS_ITS | Encounter Summary ---
Author Organization [facility] Address [facility] [place] [address] Care Team Providers Care Practice Nurse Name Role Phone Braydon Pavon Primary Care Provider [phone] Nikolay Lancaster MD Primary Care Provider [phone] Braydon Pavon Primary Care Provider [phone] Reason for Visit * Reason Onset Date Comments MEDICATION REFILL 09/08/2018 Encounter Details Date Type Department Care Team (Late st Contact Info) Description 09/08/2018 Refill [facility] [address] [place] [address] Edmond Chio MD [address] [facility] [address] [facility] [place] [address] MEDICATION REFILL Social History Tobacco Use Types [...] on filedocumented in this encounter Care Teams Practice Nurse Relationship Specialty Start Date End Date Braydon Pavon PA [address] [place] [address] PCP - General Physician Lighter Captain 05/19/18 10/03/18 Nikolay Lancaster MD [address] [place] [address] PCP - General 10/04/18 07/13/23 Braydon Pavon PA [address] [place] [address] PCP - General Physician Lighter Captain 07/14/23 documented as of this encounter
--- OUTSIDE RECORDS SUMMARY | 2024-06-08 08:05 | XMS_ITS | Referral Summary ---
Author Organization [facility] Address [address] [place] [address] Care Team Providers Care Printed Circuit Board Assembler Name Role Phone Nacho Rodriguez MD Unavailable [phone] Elian Gross MD Unavailable Braydon Pavon Primary Care Provider [phone] Encounters Date Type Department Care Team Description 06/02/2024 8:55 AM SUPERVISOR OF GUIDANCE AND TESTING Lab [facility] Advanced [facility] [address] [place] [address] Hepatic cirrhosis, unspecified hepatic cirrhosis type, unspecified whether ascites present (HCC) 06/02/2024 8:00 AM SUPERVISOR OF GUIDANCE AND TESTING Office Visit [facility] [address] [facility] [address] [place] [address] [place] [address] Nilton Whatley MD Hepatic cirrhosis, unspecified hepatic [...] 1 each 05/21/19 22 Active Dexcom G6 Cia Agent misc 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 Use to [...] 05/20/2021 Assessment & Plan (05/22/2021 3:58 PM SUPERVISOR OF GUIDANCE AND TESTING): A initial well visit to establish care [...] unless otherwise indicated. Need follow-up arranged with variety performer, radio dispatcher Planning on referral to boat painter Will need to check in to the tips follow-up Labs as ordered today, I will direct the A1 c to his radio dispatcher's office. Continuing the current regimen for now. Blood pressure is controlled at this time. We may need to try to get the stress test done as well. Screen for colon cancer 03/01/2021 Overview (03/01/2021): Added automatically from request for surgery [id number] Diabetic neuropathy associat ed with type 2 diabetes mellitus ([facility]) 10/29/2020 Assessment & Plan (10/29/2020 4:23 PM CDT): Chronic, worsening Start, gabapentin therapy Work on better diabetic control Vitamin D deficiency 10/29/2020 Assessment & Plan (10/29/2020 4:23 PM CDT): Check labs and based on that for the plans Bacterial endocarditis 05/14/2020 Assessment & Plan (05/14/2020 11:09 AM SUPERVISOR OF GUIDANCE AND TESTING): Unfortunately the patient's records from [place] are not available for my review. We [...] 05/14/2020 Assessment & Plan (05/14/2020 11:11 AM SUPERVISOR OF GUIDANCE AND TESTING): The patient's dyspnea on exertion is likely [...] resume home regimen and follow-up with home radio dispatcher MATHEUS pain 10/11/2017 Morbid obesity 12/09/2016 TRACY [...] Legal Sex Male 2:52 PM SUPERVISOR OF GUIDANCE AND TESTING Gender Identity Male 10/29/2020 12:37 PM CDT Sexual Orientation Straight 10/29/2020 12 :37 PM CDT Last Filed Vital Signs Vital Sign Reading Time Taken Comments Blood Pressure 117/76 06/02/2024 7:36 AM SUPERVISOR OF GUIDANCE AND TESTING Pulse 88 06/02/2024 7:36 AM SUPERVISOR OF GUIDANCE AND TESTING Temperature 36.7 ??C (98.1 ??F) 06/02/2024 7:36 AM CS T Respiratory Rate 17 01/20/2024 12:0 0 PM CDT Oxygen Saturation 92% 06/02/2024 7:36 AM SUPERVISOR OF GUIDANCE AND TESTING Inhaled Oxygen Concentration - - Weight 103.1 kg (227 lb 6.4 oz) 06/02/2024 7:36 AM SUPERVISOR OF GUIDANCE AND TESTING Height 172.7 cm (5' 8 ) 11/23/2023 7:53 AM CDT Body Mass Index 34.58 11/23/2023 7:53 AM CDT Plan of Treatment Not on file Medical Devices Implanted Type Area Hat Ironer Device Identifier Shelf Expiration Date Model / Serial / Lot Grand Chain Peripheral Vascular [id number] Lifestar 14mm 60mm 80cm Stent Biliary - [id number] Implanted:Qty: 1 on 01/10/2021 at [facility] [employer] 09/15/2023 [id number] / / [id number] Procedures Procedure Name Priority Date/Time Associated Diagnosis Comments EGFR Routine 06/02/2024 8:48 AM SUPERVISOR OF GUIDANCE AND TESTING Hepatic cirrhosis, unspecified hepatic cirrhosis type, unspecified whether ascites present (HCC) COMPREHENSIVE METABOLIC PANEL Routine 06/02/2024 8:48 AM SUPERVISOR OF GUIDANCE AND TESTING Hepatic cirrhosis, unspecified hepatic cirrhosis type, unspecified whether ascites present (HCC) PROTIME-INR Routine 06/02/2024 8:48 AM SUPERVISOR OF GUIDANCE AND TESTING Hepatic cirrhosis, unspecified hepatic cirrhosis type, unspecified whether ascites present (HCC) [id number], TUMOR MARKER Routine 06/02/2024 8:48 AM SUPERVISOR OF GUIDANCE AND TESTING Hepatic cirrhosis, unspecified hepatic cirrhosis type, unspecified whether ascites present (HCC) BILIRUBIN, DIRECT Routine 06/02/2024 8:4 8 AM SUPERVISOR OF GUIDANCE AND TESTING Hepatic cirrhosis, unspecified hepatic cirrhosis type, unspecified whether ascites present (HCC) HEMOGLOBIN A1C STAT 11/23/2023 8:40 AM CDT LIPID PANEL Routine 05/20/2021 9:36 AM SUPERVISOR OF GUIDANCE AND TESTING Morbid obesity with body mass index (BMI) of 40.0 to 44.9 in adult (HCC) ALBUMIN CREATININE RATIO, URINE Routine 05/20/2021 9:36 AM SUPERVISOR OF GUIDANCE AND TESTING Diabetic neuropathy associated with type 2 diabetes mellitus (CMS/HCC) (HCC) COLONOSCOPY 12/17/2020 10:24 AM CDT SERUM HEPATITIS PANEL Routine 08/23/2015 5:23 PM CDT from Last 3 Months or Most Recently Relevant to Health Maintenance Results * eGFR (06/02/2024 8:48 AM SUPERVISOR OF GUIDANCE AND TESTING) eGFR >90 >=60 mL/min/1. 73 m2 Comment: [...] last reviewed 2021. Blood 06/02/2024 8:48 AM SUPERVISOR OF GUIDANCE AND TESTING 06/02/2024 9:05 AM SUPERVISOR OF GUIDANCE AND TESTING us Nilton Whatley MD LAB BLOOD ORDERABLES Final Result [facility] [address] [facility] Department [place] [address] * [id number], Tumor Marker (06/02/2024 8:48 AM SUPERVISOR OF GUIDANCE AND TESTING) alpha Fetoprotein <2.0 <=8.3 ng/mL Comment: Interpretive [...] 2018;[id number] Jeyson Sanches et al. ??Clin Chem 2014;[id number]. Current interpretive data was last revised 2022. Blood 06/02/2024 8:48 AM SUPERVISOR OF GUIDANCE AND TESTING 06/02/2024 9:00 AM SUPERVISOR OF GUIDANCE AND TESTING us Nilton Whatley MD LAB BLOOD ORDERABLES Final Result Performing Organization Address City/[facility] Co de Phone Number [facility] [place] [address] * (ABNORMAL) Protime-INR (06/02/2024 8:48 AM SUPERVISOR OF GUIDANCE AND TESTING) PT 13.5(H) 9.7 - 13.0 sec INR 1.24(H) 0.90 - 1.20 [facility] Comment: Interpretive data Oral anticoagulant therapeutic ranges: Venous thromboembolism prophylaxis or treatment: 2.0-3.0 CARDIOLOGY Standard range: 2.0-3.0 High-intensity range: 2.5-3.5 Refer to indication-specific guidelines for appropriate target ranges for prosthetic heart valve replacement. Current interpretive data was last revised on 2019. Blood 06/02/2024 8:48 AM SUPERVISOR OF GUIDANCE AND TESTING 06/02/2024 9:00 AM SUPERVISOR OF GUIDANCE AND TESTING us Nilton Whatley MD LAB BLOOD ORDERABLES Final Result Performing Organization Address [facility] de Phone Number [facility] [place] [address] * (ABNORMAL) Bilirubin, direct (06/02/2024 8:48 AM SUPERVISOR OF GUIDANCE AND TESTING) Bilirubin, direct 0.6(H) 0.1 - 0.3 mg/dL Comment:Hemolyzed; result ma y be falsely decreased Blood 06/02/2024 8:48 AM SUPERVISOR OF GUIDANCE AND TESTING 06/02/2024 9:00 AM SUPERVISOR OF GUIDANCE AND TESTING us Nilton Whatley MD LAB BLOOD ORDERABLES Final Result Performing Organization Address City/[facility] Co de Phone Number [facility] Department [place] [address] * (ABNORMAL) Comprehensive metabolic panel (06/02/2024 8:48 AM SUPERVISOR OF GUIDANCE AND TESTING) Sodium 141 135 - 145 mmol/L Potassium, pl 4.3 3.3 - 4.9 mmol/L [facility] Comment:Hemolyzed; Potassium value may be falsely elevated by as much as 0.3-0.5 mmol/L. Suggest redraw and reanalysis. Chloride 107 97 - 110 mmol/L [facility] CO2 27 22 - 32 mmol/L [facility] Anion gap 7 2 - 15 mmol/L [facility] BUN 13 6 - 25 mg/dL [facility] Creatinine 0.76(L) 0.80 - 1.30 mg/dL [facility] Glucose 242(H) 70 - 199 mg/dL [facility] Comment: Interpretive Data Fasting glucose >/= [...] Calcium 9.6 8.5 - 10.3 mg/dL [facility] Bilirubin, total 3.0(H) 0.1 - 1.2 mg/dL [facility] Protein, pl 6.9 6.5 - 8.5 g/dL [facility] Albumin 3.8 3.5 - 5.0 g/dL [facility] Alk phos 90 40 - 130 Units/L [facility] ALT 19 7 - 55 Units/L [facility] AST 38 10 - 50 Units/L [facility] Comment:Hemolyzed; result ma y be falsely elevated Blood 06/02/2024 8:48 AM SUPERVISOR OF GUIDANCE AND TESTING 06/02/2024 9:00 AM SUPERVISOR OF GUIDANCE AND TESTING us Nilton Whatley MD LAB BLOOD ORDERABLES Final Result [facility] [address] [facility] [place] [address] * (ABNORMAL) Hemoglobin A1c (11/23/2023 8:40 AM CDT) Hgb A1C 10.0(H) 4.0 - 5.6 % Estimated Average Glucose 240 mg/dL [facility] Comment: The ADA recommends reporting an [...] ORDERABLES Fi nal Result Performing Organization Address City/[facility]/ZIP Co de Phone Number [facility] [address] [facility] [place] [address] * Albumin Creatinine Ratio, Urine (05/20/2021 9:36 AM SUPERVISOR OF GUIDANCE AND TESTING) Albumin Ur <12.0 mg/L [facility] Comment: Interpretive Data No reference range established. Current interpretive data was last revised 2018. Creatinine Ur 47.6 mg/dL [facility] Comment: Interpretive Data No reference range established. Current interpretive data was last revised 2018. Albumin Creatinine Ratio, Ur <25 1 - 29 mg/g [facility] Urine 05/20/2021 9:36 AM SUPERVISOR OF GUIDANCE AND TESTING 05/20/2021 7:41 PM SUPERVISOR OF GUIDANCE AND TESTING Simon Lundberg MD LAB URINE ORDERABLES Final Result [facility] [address] [address] [place] [address] * (ABNORMAL) Lipid panel (05/20/2021 9:36 AM SUPERVISOR OF GUIDANCE AND TESTING) [facility] Cholesterol 110 30 - 199 mg/dL [facility] [...] revised on 2017. Non-HDL Cholesterol 77 mg/dL [facility] Comment: Interpretive Data Ages < or = [...] 3 [facility] MARTINEZ Blood 05/20/2021 9:36 AM SUPERVISOR OF GUIDANCE AND TESTING 05/20/2021 7:41 PM SUPERVISOR OF GUIDANCE AND TESTING us Simon Lundberg MD LAB BLOOD ORDERABLES Final Result [facility] [address] Department [place] [address] * COLONOSCOPY (12/17/2020 10:24 AM CDT) Anatomical Region Laterality Modality Other Narrative Procedure Note Elian Gross MD - 12/17/2020 10:24 AM CDT ENDOSCOPY LAB Patient Name: Camilo Curry Procedure Date: 12/17/2020 10:24 AM Date of : 1970 Admit Type: Outpatient Age: 50 Gender: Male Attending MD: Elian Vivar M.D. Room: [facility] ENDOSCOPY ROOM 02 Note Status: Finalized [...] the physician, the nurse, the anesthesiologist, the clinic scheduler and thetechnician in the pre-procedure area in [...] The scope was passed under direct vision.The [id number] was introduced through the anusand advanced to the hepatic flexure. The colonoscopywas performed without difficulty. The patient tolerated the procedure well. The quality of the bowel preparation was unsatisfactory. The quality of the bowel preparation was evaluated using the BBPS([place] Bowel Preparation Scale) with scores of: RightColon [...] 10:24 AM us Elian Draper MD ENDOSCOPY CA OCEDURES Final Result * Serum Hepatitis panel (08/23/2015 5:23 PM CDT) HBV surface ag Negative NEG HISTO RICAL RESULTS HCV ab Negative NEG HISTORICAL RESULTS Comment: Interpretive Data If confirmation is required, call Laboratory Customer Service to request sample to be sent to [facility] for Hepatitis C Virus (HCV) RNA Detection and Quantitation by Real-Time Reverse Software Technician-PCR (RT-PCR). Current interpretive data was last revised [...] Most Recently Relevant to Health Maintenance Insurance [facility] [employer] [place] Advance Directives For more information, please contact: [phone] * Full Code (Latest Code Status on [...] 11:57 AM 02/03/2018 5:26 AM Care Teams Printed Circuit Board Assembler Relationship Specialty Start Date End Date Braydon Pavon PA [address] [place] [address] PCP - General 08/23/21 [place] [id number] [address] [facility] [address] [place] [address] Consulting Physician Endocrinology 05/20/21 [place] [id number] [address] Consulting Physician Internal Medicine 05/20/21
--- OUTSIDE RECORDS SUMMARY | 2024-06-08 08:05 | XMS_ITS | Clinical Summary ---
Author Organization [facility] Address [address] [place] [address] Care Team Providers Care Soda Maker Name Role Phone Nacho Rodriguez MD Unavailable [phone] Elian Gross MD Unavailable Braydon Pavon Primary Care Provider [phone] Allergies Active Allergy Reactions Criticality Noted Date [...] 1 each 05/21/19 22 Active Dexcom G6 Special Services Coordinator misc 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 Use [...] 05/20/2021 Assessment & Plan (05/22/2021 3:58 PM STAFF VETERINARIAN): A initial well visit to establish care [...] unless otherwise indicated. Need follow-up arranged with garden tractor mechanic, turbine mechanic Planning on referral to embossed or impressed lettering painter Will need to check in to the tips follow-up Labs as ordered today, I will direct the A1 c to his turbine mechanic's office. Continuing the current regimen for now. Blood pressure is controlled at this time. We may need to try to get the stress test done as well. Screen for colon cancer 03/01/2021 Overview (03/01/2021): Added automatically from request for surgery [id number] Diabetic neuropathy associat ed with type 2 diabetes mellitus (CMS/HCC) 10/29/2020 Assessment & Plan (10/29/2020 4:23 PM CDT): Chronic, worsening Start, gabapentin therapy Work on better diabetic control Vitamin D deficiency 10/29/2020 Assessment & Plan (10/29/2020 4:23 PM CDT): Check labs and based on that for the plans Bacterial endocarditis 05/14/2020 Assessment & Plan (05/14/2020 11:09 AM STAFF VETERINARIAN): Unfortunately the patient's records from [place] are not available for my review. We [...] 05/14/2020 Assessment & Plan (05/14/2020 11:11 AM STAFF VETERINARIAN): The patient's dyspnea on exertion is likely [...] - follow up in 6 weeks with PROCESS PROJECT ENGINEER Chelsea Driscoll ( to discuss about insulin [...] resume home regimen and follow-up with home turbine mechanic RUQ pain 10/11/2017 Morbid obesity 12/09/2016 TRACY [...] Department Care Team Description 06/02/2024 8:55 AM STAFF VETERINARIAN Lab [facility] [address] [place] [id number] Hepatic cirrhosis, unspecified hepatic cirrhosis type, unspecified whether ascites present (HCC) 06/02/2024 8:00 AM STAFF VETERINARIAN Office Visit [facility] [address] [place] [address] [address] [place] [address] [place] [address] Nilton Whatley MD Hepatic cirrhosis, unspecified hepatic [...] on file Legal Sex Male 2:52 PM STAFF VETERINARIAN Gender Identity Male 10/29/2020 12:37 PM CDT Sexual Orientation Straight 10/29/2020 12 :37 PM CDT Obstetrics History Last Filed Vital Signs Vital Sign Reading Time Taken Comments Blood Pressure 117/76 06/02/2024 7:36 AM STAFF VETERINARIAN Pulse 88 06/02/2024 7:36 AM STAFF VETERINARIAN Temperature 36.7 ??C (98.1 ??F) 06/02/2024 7:36 AM CS T Respiratory Rate 17 01/20/2024 12:0 0 PM CDT Oxygen Saturation 92% 06/02/2024 7:36 AM STAFF VETERINARIAN Inhaled Oxygen Concentration - - Weight 103.1 kg (227 lb 6.4 oz) 06/02/2024 7:36 AM STAFF VETERINARIAN Height 172.7 cm (5' 8 ) 11/23/2023 [...] Completed 08/23/2015 Medical Devices Implanted Type Area Repairer General Device Identifier Shelf Expiration Date Model / Serial / Lot [employer] Peripheral Vascular [id number] Lifestar 14mm 60mm 80cm Stent Biliary - [id number] Implanted:Qty: 1 on 01/10/2021 at [facility] [employer] 09/15/2023 [id number] / / [id number] Procedures Procedure Name Priority Date/Time Associated Diagnosis Comments EGFR Routine 06/02/2024 8:48 AM STAFF VETERINARIAN Hepatic cirrhosis, unspecified hepatic cirrhosis type, unspecified whether ascites present (HCC) COMPREHENSIVE METABOLIC PANEL Routine 06/02/2024 8:48 AM STAFF VETERINARIAN Hepatic cirrhosis, unspecified hepatic cirrhosis type, unspecified whether ascites present (HCC) PROTIME-INR Routine 06/02/2024 8:48 AM STAFF VETERINARIAN Hepatic cirrhosis, unspecified hepatic cirrhosis type, unspecified whether ascites present (HCC) [id number], TUMOR MARKER Routine 06/02/2024 8:48 AM STAFF VETERINARIAN Hepatic cirrhosis, unspecified hepatic cirrhosis type, unspecified whether ascites present (HCC) BILIRUBIN, DIRECT Routine 06/02/2024 8:4 8 AM STAFF VETERINARIAN Hepatic cirrhosis, unspecified hepatic cirrhosis type, unspecified whether ascites present (HCC) HEMOGLOBIN A1C STAT 11/23/2023 8:40 AM CDT LIPID PANEL Routine 05/20/2021 9:36 AM STAFF VETERINARIAN Morbid obesity with body mass index (BMI) of 40.0 to 44.9 in adult (HCC) ALBUMIN CREATININE RATIO, URINE Routine 05/20/2021 9:36 AM STAFF VETERINARIAN Diabetic neuropathy associated with type 2 diabetes mellitus (CMS/HCC) (HCC) COLONOSCOPY 12/17/2020 10:24 AM CDT SERUM HEPATITIS PANEL Routine 08/23/2015 5:23 PM CDT from Last 3 Months or Most Recently Relevant to Health Maintenance Results * eGFR (06/02/2024 8:48 AM STAFF VETERINARIAN) eGFR >90 >=60 mL/min/1. 73 m2 Comment: [...] last reviewed 2021. Blood 06/02/2024 8:48 AM STAFF VETERINARIAN 06/02/2024 9:05 AM STAFF VETERINARIAN us Nilton Whatley MD LAB BLOOD ORDERABLES Final Result Performing Organization Address City/State/[facility] Co ut Phone Number [facility] [place] [address] * [id number], Tumor Marker (06/02/2024 8:48 AM STAFF VETERINARIAN) alpha Fetoprotein <2.0 <=8.3 ng/mL Comment: Interpretive [...] al. Clin Chem Lab Med 2018;57:783-797 Jeyson Sanhces et al. ??Clin Chem 2014;4173-6960. Current interpretive data was last revised 2022. Blood 06/02/2024 8:48 AM STAFF VETERINARIAN 06/02/2024 9:00 AM STAFF VETERINARIAN Nilton Whatley MD LAB BLOOD ORDERABLES Final Result Performing Organization Address [facility] Co de Phone Number [facility] [place] [address] * (ABNORMAL) Protime-INR (06/02/2024 8:48 AM STAFF VETERINARIAN) PT 13.5(H) 9.7 - 13.0 sec INR 1.24(H) 0.90 - 1.20 [facility] Comment: Interpretive data Oral anticoagulant therapeutic ranges: Venous thromboembolism prophylaxis or treatment: 2.0-3.0 CARDIOLOGY Standard range: 2.0-3.0 High-intensity range: 2.5-3.5 Refer to indication-specific guidelines for appropriate target ranges for prosthetic heart valve replacement. Current interpretive data was last revised on 2019. Blood 06/02/2024 8:48 AM STAFF VETERINARIAN 06/02/2024 9:00 AM STAFF VETERINARIAN Nilton Whatley MD LAB BLOOD ORDERABLES Final Result Performing Organization Address [facility] Co de Phone Number [facility] Department [place] [address] * (ABNORMAL) Bilirubin, direct (06/02/2024 8:48 AM STAFF VETERINARIAN) Bilirubin, direct 0.6(H) 0.1 - 0.3 mg/dL Comment:Hemolyzed; result ma y be falsely decreased Blood 06/02/2024 8:48 AM STAFF VETERINARIAN 06/02/2024 9:00 AM STAFF VETERINARIAN us Nilton Whatley MD LAB BLOOD ORDERABLES Final Result Performing Organization Address City/[facility] Co de Phone Number [facility] Department [place] [address] * (ABNORMAL) Comprehensive metabolic panel (06/02/2024 8:48 AM STAFF VETERINARIAN) Sodium 141 135 - 145 mmol/L Potassium, pl 4.3 3.3 - 4.9 mmol/L [facility] Comment:Hemolyzed; Potassium value may be falsely elevated by as much as 0.3-0.5 mmol/L. Suggest redraw and reanalysis. Chloride 107 97 - 110 mmol/L [facility] CO2 27 22 - 32 mmol/L [facility] Anion gap 7 2 - 15 mmol/L [facility] BUN 13 6 - 25 mg/dL [facility] Creatinine 0.76(L) 0.80 - 1.30 mg/dL [facility] Glucose 242(H) 70 - 199 mg/dL [facility] Comment: Interpretive Data Fasting glucose >/= [...] 2022. Calcium 9.6 8.5 - 10.3 mg/dL [facility] Bilirubin, total 3.0(H) 0.1 - 1.2 mg/dL [facility] Protein, pl 6.9 6.5 - 8.5 g/dL [facility] Albumin 3.8 3.5 - 5.0 g/dL [facility] Alk phos 90 40 - 130 Units/L [facility] ALT 19 7 - 55 Units/L [facility] AST 38 10 - 50 Units/L [facility] Comment:Hemolyzed; result ma y be falsely elevated Blood 06/02/2024 8:48 AM STAFF VETERINARIAN 06/02/2024 9:00 AM STAFF VETERINARIAN Nilton Whatley MD LAB BLOOD ORDERABLES Final Result Performing Organization Address [facility] de Phone Number [facility] Department [place] [address] * (ABNORMAL) Hemoglobin A1c (11/23/2023 8:40 AM CDT) Hgb A1C 10.0(H) 4.0 - 5.6 % Estimated Average Glucose 240 mg/dL [facility] Comment: The ADA recommends reporting an [...] ORDERABLES Fi nal Result Performing Organization Address [facility] de Phone Number [facility] Department [place] [address] * Albumin Creatinine Ratio, Urine (05/20/2021 9:36 AM STAFF VETERINARIAN) Pathologist [facility] Albumin Ur <12.0 mg/L [facility] Comment: Interpretive Data No reference range established. Current interpretive data was last revised 2018. Creatinine Ur 47.6 mg/dL [facility] Comment: Interpretive Data No reference range established. Current interpretive data was last revised 2018. Albumin Creatinine Ratio, Ur <25 1 - 29 mg/g [facility] Urine 05/20/2021 9:36 AM STAFF VETERINARIAN 05/20/2021 7:41 PM STAFF VETERINARIAN Simon Lundberg MD LAB URINE ORDERABLES Final Result [facility] [address] Department [place] [address] * (ABNORMAL) Lipid panel (05/20/2021 9:36 AM STAFF VETERINARIAN) Cholesterol 110 30 - 199 mg/dL [facility] [...] 3 PAMELAPAULA MARTINEZ Blood 05/20/2021 9:36 AM STAFF VETERINARIAN 05/20/2021 7:41 PM STAFF VETERINARIAN us Simon Lundberg MD LAB BLOOD ORDERABLES Final Result [facility] [address] [facility] Department [place] [address] * COLONOSCOPY (12/17/2020 10:24 AM CDT) Anatomical Region Laterality Modality Other Narrative Procedure Note Elian Gross MD - 12/17/2020 10:24 AM CDT ENDOSCOPY LAB Patient Name: Camilo Curry Procedure Date: 12/17/2020 10:24 AM Date of : 1970 Admit Type: Outpatient Age: 50 Gender: Male Attending MD: Elian Vivar M.D. Room: [facility] ENDOSCOPY ROOM 02 Note Status: Finalized [...] the physician, the nurse, the anesthesiologist, the account auditor and thetechnician in the pre-procedure area in [...] The scope was passed under direct vision.The [id number] was introduced through the anusand advanced to the hepatic flexure. The colonoscopywas performed without difficulty. The patient tolerated the procedure well. The quality of the bowel preparation was unsatisfactory. The quality of the bowel preparation was evaluated using the BBPS([place] Bowel Preparation Scale) with scores of: RightColon [...] 10:24 AM us Elian Draper MD ENDOSCOPY [place] OCEDURES Final Result * Serum Hepatitis panel (08/23/2015 5:23 PM CDT) HBV surface ag Negative NEG HISTO RICAL RESULTS HCV ab Negative NEG HISTORICAL RESULTS Comment: Interpretive Data If confirmation is required, call Laboratory Customer Service to request sample to be sent to [facility] for Hepatitis C Virus (HCV) RNA Detection and Quantitation by Real-Time Reverse Laboratory Cureman-PCR (RT-PCR). Current interpretive data was last revised [...] Recently Relevant to Health Maintenance Insurance [employer] [facility] [employer] [facility] [employer] [facility] Advance Directives For more information, please contact: [phone] * Full Code (Latest Code Status on [...] 11:57 AM 02/03/2018 5:26 AM Care Teams Soda Maker Relationship Specialty Start Date End Date Braydon Pavon PA [address] [place] [address] PCP - General 08/23/21 [place] [address] [address] [facility] [address] [place] [address] Consulting Physician Endocrinology 05/20/21 [place] [address] [address] Consulting Physician Internal Medicine 05/20/21
--- OUTSIDE RECORDS SUMMARY | 2024-06-08 08:05 | XMS_ITS | Encounter Summary ---
Author Organization [facility] Address [address] [place] [address] Care Team Providers Care Refining Engineer Name Role Phone None, Provider Primary Care Provider Braydon Piedra Primary Care Provider [phone] Encounter Details Date Type Department Care Team (Late Contact Info) Description 10/09/2018 Abstract SFL CONVERSION [address] [place] [address] , Generic Conversion, Social History [...] Description 08/30/2024 12:00 PM CDT Office Visit [facility] Diabetes and Endocrinology - [address] [address] Eva Power MD [address] [place] [address] [phone] documented as of this encounter Visit Diagnoses Not on filedocumented in this encounter Care Teams Refining Engineer Relationship Specialty Start Date End Date None, ProviderMD PCP - General 02/08/19 03/01/19 Braydon Pavon PA [address] [place] [address] PCP - General PHYSICIAN BREAKER UP MACHINE OPERATOR 03/02/19 documented as of this encounter
[2024-06-08] MEDS: INSULIN HUMAN REGULAR (*BKC) 1,000 UNITS/10 ML VIAL 8 UNITS SUB-Q (09:10)
[2024-06-08 10:02] LABS: Troponin I 69.7 ng/L (0.00-60.4)
[2024-06-08 10:42] LABS: NT Pro B Type Natriuretic Pept 744 pg/mL (0-125)
[2024-06-08] MEDS: FUROSEMIDE INJ 20 MG/2 ML VIAL IV PUSH (11:20)
[2024-06-08 12:44] LABS: Add Urine Microscopic? YES; Appearance Urine Clear (Clear); Bilirubin Urine Negative (Negative); Blood Urine Negative (Negative); Color Urine Yellow (Yellow); Glucose Urine UA 3+ (Negative); Ketones Urine Trace (Negative); Leukocyte Esterase Ur Negative LEU/UL (Negative); Nitrate Urine Negative (Negative); Protein Urine 1+ (Negative); Specific Grav Ur 1.025 (1.010-1.020); Urobilinogen Urine 0.2 mg/dL (0.2-1.0); pH Urine 5.5 (5.0-8.0)
[2024-06-08 12:49] LABS: Bacteria Urine Rare /hpf; Mucus Urine Few /lpf; RBC Urine None seen /hpf (0-2); WBC Urine None seen /hpf (0-3)
--- NOTE | 2024-06-10 12:10 | PC.NURSE ---
PRELIMINARY BLOOD CULTURE REPORT; NO GROWTH TO DATE.
== END 2024-06-08 14:20 | disposition short-term general hospital (02) ==
PROVIDERS: Emergency Provider Internal Medicine Critical Care Medicine; PCP Physician Assistant
DX: I50.9 Heart failure, unspecified (principal); J11.1 Influenza due to unidentified influenza virus with other respiratory manifestations; E11.9 Type 2 diabetes mellitus without complications; Z87.891 Personal history of nicotine dependence; Z20.822 Contact with and (suspected) exposure to COVID-19
CPT/HCPCS: 36415; 71045; 80048; 80076; 81001; 82140; 83690; 83880; 84484; 85025; 85055; 85610; 87040; 87637; 93005; 96374; 99285; J1815; J1940; J7120

== ENCOUNTER 2024-07-21 07:31 | Outpatient (CLI) | payer OTHER, SELFPAY ==
--- OUTSIDE RECORDS SUMMARY | 2024-07-21 07:35 | XMS_ITS | Clinical Summary ---
Author Organization [facility] Address [address] Valenzuelan: Epic Prelude ADT [place] [id number] Care Team Providers Care Contract Clerk Automobile Name Role Phone Carlos Mcdonnell DO Primary Care Provider Unava ilable Allergies No known active allergies Medications No known medications Encounters Date Type Department Care Team Description 06/30/2024 8:59 PM ON AIR ANNOUNCER - 06/30/2024 11:11 PM ON AIR ANNOUNCER Emergency [facility] Emergency Department [id number] [place] [address] Gerry Caal DO Encounter for blood typing (Primary Dx); Cirrhosis of liver without ascites, unspecified hepatic cirrhosis type (CMS/HCC); Upper GI bleed; Metabolic dysfunction-associated steatohepatitis (MASH) Discharge Disposition: Left Against Medical Advice 06/30/2024 Travel from Last 3 Months Social History Tobacco Use Types Packs/Day Years Used Date Smoking Tobacco: Former Cigarettes Tobacco Cessation:Counseling Given: Not Answered Alcohol Use Standard Drinks/Week Comments Never 0 (1 standard drink = 0.6 oz pur e alcohol) Feeling Safe Answer Date Recorded Are you in a relationship wi th someone who hurts you emotionally and/or physically? No 06/30/2024 Sex and Gender Information Value Date Recorded Sex Assigned at Not on file Legal Sex Male 6:23 AM ON AIR ANNOUNCER Gender Identity Not on file Sexual Orientation Not on file Last Filed Vital Signs Vital Sign Reading Time Taken Comments Blood Pressure 147/78 06/30/2024 10:10 PM ON AIR ANNOUNCER Pulse 89 06/30/2024 10:55 PM ON AIR ANNOUNCER Temperature 36.4 C (97.5 F) 06/30/2024 5:45 PM ON AIR ANNOUNCER Respiratory Rate 13 06/30/2024 10:55 PM ON AIR ANNOUNCER Oxygen Saturation 96% 06/30/2024 10:55 PM ON AIR ANNOUNCER Inhaled Oxygen Concentration - - Weight - - Height - - Body Mass Index - - Plan of Treatment Health Maintenance Due Date Last Done Comments DIABETES ANNUAL RETINAL EXAM 1988 DIABETES MICROALBUMIN ANNUAL SCREEN 1988 LDL CHOLESTEROL ANNUAL 1988 DTAP/TDAP/TD VACCINES (1 - Tdap) 1989 FIT-DNA Q 3 years 09/06/2015 FIT/FOBT Q 1 year 09/06/2015 Flex Sig/CT Colonography Q 5 years 09/06/2015 HEPATITIS B VACCINES (2 of 3 - 19+ 3-dose series) 12/07/2015 11/09/2015, 09/10/2015 ZOSTER VACCINE (1 of 2) 2020 INFLUENZA VACCINE (#1) 2023 COVID-19 Vaccine (3 - 2023-2 5 season) 2024 12/29/2020, 12/08/2020 DIABETES ANNUAL FOOT EXAM 06/01/2024 06/01/2023 DIABETES HBA1C Q 6 MONTHS 12/07/20242024, 05/31/2024, 11/23/2023, Additional history exists COLORECTAL SCREENING 12/17/2030 12/17/2020, 12/17/2020, 05/04/2005 Colorectal Cancer Screening 12/17/2030 Abdominal Aortic Aneurysm (A AA) Screening Completed 01/20/2024, 05/20/2023, 10/27/2018, Additional history exists Procedures Procedure Name Priority Date/Time Associated Diagnosis Comments LIPASE Stat 06/30/2024 9:40 PM ON AIR ANNOUNCER COMPREHENSIVE METABOLIC PANEL Stat 06/30/2024 9:40 PM ON AIR ANNOUNCER VERIFICATION BLOOD GROUP Stat 06/30/2024 9:39 PM ON AIR ANNOUNCER Encounter for blood typing PROTIME-INR Stat 06/30/2024 9:39 PM ON AIR ANNOUNCER EXTRA TUBE (BLUE) Stat 06/30/2024 9:3 9 PM ON AIR ANNOUNCER EXTRA TUBE Stat 06/30/2024 9:39 PM ON AIR ANNOUNCER TYPE AND SCREEN Stat 06/30/2024 6:10 PM ON AIR ANNOUNCER CBC WITH DIFFERENTIAL Stat 06/30/2024 6:10 PM ON AIR ANNOUNCER from Last 3 Months Results * LIPASE (06/30/2024 9:40 PM ON AIR ANNOUNCER) Pathologist [facility] LIPASE 17 13 - 60 U/L 06/30/2024 10:40 PM ON AIR ANNOUNCER [facility] Blood Venipuncture / Unknown 06/30/2024 9:40 PM ON AIR ANNOUNCER 06/30/2024 10:08 PM ON AIR ANNOUNCER Gerry Caal DO CHEMISTRY ORDERABLES Final Resu lt [facility] CLIA# [id number] [place] [address] * (ABNORMAL) COMPREHENSIVE METABOLIC PANEL (06/30/2024 9:40 PM ON AIR ANNOUNCER) Pathologist [facility] SODIUM 137 136 - 145 mmol/L 06/30/2024 10:47 PM [facility] POTASSIUM 4.0 3.4 - 5.1 mmol/L 06/30/2024 10:47 PM [facility] CHLORIDE 98 98 - 107 mmol/L 06/30/2024 10:47 PM [facility] CO2 25 22 - 29 mmol/L 06/30/2024 10:47 PM [facility] CALCIUM 9.8 8.6 - 10.4 mg/dL 06/30/2024 10:47 PM [facility] BUN 17 6 - 20 mg/dL 06/30/2024 10:47 PM [facility] CREATININE 0.78 0.67 - 1.17 mg/dL 06/30/2024 10:47 PM [facility] GLUCOSE 450(HH) 74 - 99 mg/dL 06/30/2024 10:47 PM [facility] TOTAL PROTEIN 7.0 6.3 - 8.7 g/dL 06/30/2024 10:47 PM [facility] ALBUMIN 3.8 3.5 - 5.2 g/dL 06/30/2024 10:47 PM [facility] BILIRUBIN TOTAL 4.0(H) 0.3 - 1.2 mg/dL 06/30/2024 10:47 PM [facility] ALKALINE PHOSPHATASE 94 40 - 150 U/L 06/30/2024 10:47 PM [facility] AST 24 0 - 41 U/L 06/30/2024 10:47 PM [facility] ALT 13 0 - 41 U/L 06/30/2024 10:47 PM [facility] GFR >60 >=60 mL/min/1.7 3 sq meter 06/30/2024 10:47 PM [facility] Comment:eGFR calculated with 2020 CKD-EPI equation. Vegetarian diet, extremely high or low muscle mass, and may affect results. Cystatin C with Glomerular Filtration Rate is a suitable alternative for these patients. ANION GAP 14 8 - 16 mmol/L 06/30/2024 10:47 PM [facility] Blood Venipuncture / Unknown 06/30/2024 9:40 PM ON AIR ANNOUNCER 06/30/2024 10:08 PM ON AIR ANNOUNCER Gerry Caal DO CHEMISTRY ORDERABLES Final Resu lt Performing Organization Address [facility]/ZIP Co de Phone Number [facility] CLIA# [id number] [place] [address] * EXTRA TUBE (BLUE) (06/30/2024 9:39 PM ON AIR ANNOUNCER) Blood Venipuncture / Unknown 06/30/2024 9:39 PM ON AIR ANNOUNCER 06/30/2024 10:57 PM ON AIR ANNOUNCER Gerry Caal DO HEMATOLOGY ORDERABLES Final Res ult [facility] CLIA# [id number] [place] [address] * VERIFICATION BLOOD GROUP (06/30/2024 9:39 PM ON AIR ANNOUNCER) ABO GROUP A 06/30/2024 11:11 PM ON AIR ANNOUNCER [facility] RH (D) TYPE Positive 06/30/2024 11:11 PM ON AIR ANNOUNCER [facility] Blood Venipuncture / Unknown 06/30/2024 9:39 PM ON AIR ANNOUNCER 06/30/2024 10:07 PM ON AIR ANNOUNCER Carlos Mcdonnell DO BLOOD BANK ORDERABLES [id number] [address] [place] [address] * (ABNORMAL) PROTIME-INR (06/30/2024 9:39 PM ON AIR ANNOUNCER) Pathologist [facility] PROTIME 15.0(H) 11.5 - 14.7 Seconds 06/30/2024 11:05 PM ON AIR ANNOUNCER [facility] INR 1.2(H) 0.9 - 1.1 06/30/2024 11:05 PM ON AIR ANNOUNCER [facility] Blood Venipuncture / Unknown 06/30/2024 9:39 PM ON AIR ANNOUNCER 06/30/2024 10:57 PM ON AIR ANNOUNCER Gerry Caal DO HEMATOLOGY ORDERABLES Final Res ult [facility] CLIA# [id number] [address] [place] [address] * (ABNORMAL) CBC WITH DIFFERENTIAL (06/30/2024 6:10 PM ON AIR ANNOUNCER) WBC 5.3 4.0 - 9.8 K/uL 06/30/2024 6:48 PM ON AIR ANNOUNCER [facility] [email or web address] [facility] RBC 5.86(H) 4.50 - 5.40 M/uL 06/30/2024 6:48 PM [facility] HEMOGLOBIN 16.8(H) 13.6 - 16.5 g/dL 06/30/2024 6:48 PM [facility] HEMATOCRIT 48.6(H) 40.0 - 48.0 % 06/30/2024 6:48 PM [facility] MCV 82.9 82.0 - 99.0 fL 06/30/2024 6:48 PM [facility] MCH 28.7 27.2 - 32.6 pg 06/30/2024 6:48 PM [facility] MCHC 34.6 31.5 - 35.5 g/dL 06/30/2024 6:48 PM [facility] RDW 16.9(H) 11.5 - 14.5 % 06/30/2024 6:48 PM [facility] RDW-STDEV 46.3 37.1 - 48.7 fL 06/30/2024 6:48 PM [facility] PLATELETS 78(L) 140 - 350 K/uL 06/30/2024 6:48 PM [facility] MPV 06/30/2024 6:48 PM [facility] Comment:Parameter not availa ble NEUTROPHILS 70 % 06/30/2024 6:48 PM [facility] LYMPHOCYTES 16 % 06/30/2024 6:48 PM [facility] MONOCYTES 9 % 06/30/2024 6:48 PM [facility] EOSINOPHILS 3 % 06/30/2024 6:48 PM [facility] BASOPHILS 1 % 06/30/2024 6:48 PM [facility] IMMATURE GRANULOCYTES 1 % 06/30/2024 6:48 PM [facility] Comment:IG (Immature Granulo cyte) count includes Metamyelocytes, Myelocytes, and Promyelocytes NEUTROPHIL ABSOLUTE 3.73 1.90 - 7.00 K/uL 06/30/2024 6:48 PM [facility] LYMPHOCYTE ABSOLUTE 0.86 0.70 - 4.50 K/uL 06/30/2024 6:48 PM ON AIR ANNOUNCER [facility] MONOCYTE ABSOLUTE 0.47 0.10 - 1.30 K/uL 06/30/2024 6:48 PM ON AIR ANNOUNCER [facility] EOSINOPHIL ABSOLUTE 0.18 0.00 - 0.70 K/uL 06/30/2024 6:48 PM ON AIR ANNOUNCER [facility] BASOPHILS ABSOLUTE 0.07 0.00 - 0.20 K/uL 06/30/2024 6:48 PM ON AIR ANNOUNCER [facility] IMMATURE GRANULOCYTES ABSOLUTE 0.03 0.00 - 0.03 K/uL 06/30/2024 6:48 PM ON AIR ANNOUNCER [facility] Blood Venipuncture / Unknown 06/30/2024 6:10 PM ON AIR ANNOUNCER 06/30/2024 6:40 PM ON AIR ANNOUNCER Gerry Caal DO HEMATOLOGY ORDERABLES Final Res ult [facility] CLIA# [id number] [place] [address] * TYPE AND SCREEN (06/30/2024 6:10 PM ON AIR ANNOUNCER) ABO GROUP A 06/30/2024 7:40 PM ON AIR ANNOUNCER [facility] RH (D) TYPE Positive 06/30/2024 7:40 PM ON AIR ANNOUNCER [facility] ANTIBODY SCREEN Negative 06/30/2024 7:40 PM ON AIR ANNOUNCER [facility] Blood Venipuncture / Unknown 06/30/2024 6:10 PM ON AIR ANNOUNCER 06/30/2024 6:31 PM ON AIR ANNOUNCER Gerry Caal DO BLOOD BANK ORDERABLES Edited Re sult - Final [facility] CLIA# [id number] [place] [address] from Last 3 Months Insurance [facility] MEDICAID Care Teams Contract Clerk Automobile Relationship Specialty Start Date End Date Carlos Mcdonnell DO PCP - General 11/18/07
--- OUTSIDE RECORDS SUMMARY | 2024-07-21 07:36 | XMS_ITS | Data Portability ---
Author Organization [facility] Address [address] [facility] [facility] [place] [address] Care Team Providers Care Director Of Respiratory Therapy Name Role Phone JANETH PAVON Primary Care Provider Assessment No assessment recorded. Plan of Treatment Reminders Order Date Submit Date Provider Last Modified By Organization Details Last Modified Time Details Appointments None recorded. Lab urinalysis , dipstick 2023 024 [place] In-Office Order, Internal Use Only DO Not Attach Compendium DO Not Attach Compendium, Do Not Delete/merge, [id number] 10:17:29 Referral neurologis t referral 2024 025 [facility], [address], [address], 5 19:30:41 Procedures None recorded. Surgeries None recorded. Imaging MRI, brain, w/o contrast 2024 025 [facility], [address] [place], [address], 5 15:38:48 MRI, lumbar spine, w/o contrast 2023 024 [facility], [address] [place], [address], 4 07:55:02 Medication Orders None recorded. Patient TargetsNo targets recorded. Patient Instructions Encounter Date Encounter Id Patient Instructions Last Modified By Organization Details Last Modified Time 03/03/2024 [id number] A healthy lifestyle: care instructions jnanney Not available 03/03/2024 11:27:32 03/08/2024 [id number] A healthy lifestyle: care instructions jnanney Not available 03/08/2024 15:26:42 type 2 diabetes: care instructions jnanney Not available 03/08/2024 15:26:42 03/23/2024 [id number] A healthy lifestyle: care instructions jnanney Not available 03/23/2024 11:17:48 type 2 diabetes: care instructions jnanney Not available 03/23/2024 11:17:48 04/06/2024 [id number] painful urinatio n (dysuria): care instructions jnanney Not available 04/06/2024 10:11:20 When You Want to Lose Weight: Care Instructions jnanney Not available 04/06/2024 10:27:46 type 2 diabetes: care instructions jnanney Not available 04/06/2024 10:27:46 06/28/2024 [id number] coughing up blood: care instructions jnanney Not available 06/28/2024 18:33:32 Reason for Referral Neurologist Referral for Fun ctional gait abnormality Referring Physician: Janeth Pavon, Family Medicine, Encounter Date: 06/28/2024 Results Created Date Observation Date Name Description Value Unit Range Abnormal Flag Note LastModifiedBy Organization Detail LastModifiedTime 04/06/20 24 04/06/2024 urina lysis , dipst ick Leukocytes Negati ve Not Available In-Office Order Internal Use Only DO Not Attach Compendium DO Not Attach Compendium, Do Not Delete/merge, [id number] 04/06/2024 10:08:18 04/06/20 24 04/06/2024 urina lysis , dipst ick Nitrite negati ve Not Available In-Office Order Internal Use Only DO Not Attach Compendium DO Not Attach Compendium, Do Not Delete/merge, [id number] 04/06/2024 10:08:18 04/06/20 24 04/06/2024 urina lysis , dipst ick Urobilinogen .2 Not Available In-Of fice Order Internal Use Only DO Not Attach Compendium DO Not Attach Compendium, Do Not Delete/merge, [id number] 04/06/2024 10:08:18 04/06/20 24 04/06/2024 urina lysis , dipst ick Protein Negati ve Not Available In-Office Order Internal Use Only DO Not Attach Compendium DO Not Attach Compendium, Do Not Delete/merge, [id number] 04/06/2024 10:08:18 04/06/20 24 04/06/2024 urina lysis , dipst ick pH 6.0 Not Available In-Office Order Internal Use Only DO Not Attach Compendium DO Not Attach Compendium, Do Not Delete/merge, [id number] 04/06/2024 10:08:18 04/06/20 24 04/06/2024 urina lysis , dipst ick Blood Negati ve Not Available In-Office Order Internal Use Only DO Not Attach Compendium DO Not Attach Compendium, Do Not Delete/merge, [id number] 04/06/2024 10:08:18 04/06/20 24 04/06/2024 urina lysis , dipst ick Specific [place] 1.015 Not Available In-Off ice Order Internal Use Only DO Not Attach Compendium DO Not Attach Compendium, Do Not Delete/merge, [id number] 04/06/2024 10:08:18 04/06/20 24 04/06/2024 urina lysis , dipst ick Ketone Trace Not Available In-Office Order Internal Use Only DO Not Attach Compendium DO Not Attach Compendium, Do Not Delete/merge, [id number] 04/06/2024 10:08:18 04/06/20 24 04/06/2024 urina lysis , dipst ick Bilirubin Negati ve Not Available In-Office Order Internal Use Only DO Not Attach Compendium DO Not Attach Compendium, Do Not Delete/merge, [id number] 04/06/2024 10:08:18 04/06/20 24 04/06/2024 urina lysis , dipst ick Glucose 1000 Not Available In-Office Order Internal Use Only DO Not Attach Compendium DO Not Attach Compendium, Do Not Delete/merge, [id number] 04/06/2024 10:08:18 04/06/20 24 04/06/2024 urina lysis , dipst ick Appearance Clear Not Available In-Offi ce Order Internal Use Only DO Not Attach Compendium DO Not Attach Compendium, Do Not Delete/merge, [id number] 04/06/2024 10:08:18 04/06/20 24 04/06/2024 urina lysis , dipst ick Color Yellow Not Available In-Office Order Internal Use Only DO Not Attach Compendium DO Not Attach Compendium, Do Not Delete/merge, [id number] 04/06/2024 10:08:18 06/08/19 25 06/09/2024 Gluco se [Mass /volu me] in Arter ial blood glucose [mass/volume ] in capillary blood by glucometer 241 mg/dL low: 70mg/d Lhigh: 99mg/d L high Gluco se WB/PO C 241 (H) 70 - 99 mg/dL 06/09 8:24 AM 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[facility] Not Available Not Available 06/28/2024 17:40:48 06/08/1906/09/2024 Gluco se [Mass /volu me] in Arter ial blood specimen source identified Cap Finger stick Speci men Type Cap Finge rstic k 06/09 8:24 AM 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[facility] Not Available Not Available 06/28/2024 17:40:48 06/08/1906/09/2024 Gluco se [Mass /volu me] in Arter ial blood interpretati on and review of laboratory results Abnorm al Not Available Not Available 17:40:48 06/08/19 25 06/08/2024 Magne sium [Mass /volu me] in Serum or Plasm a magnesium [mass/volume ] in serum or plasma 1.6 mg/dL low: 1.6mg/ dLhigh : 2.6mg/ dL Magne sium 1.6 1.6 - 2.6 mg/dL 06/08 5:17 PM 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[facility] Not Available Not Available 06/28/2024 17:40:48 06/08/19 25 06/08/2024 Magne sium [Mass /volu me] in Serum or Plasm a interpretati on and review of laboratory results Normal Not Available Not Available 06/05 17:40:48 06/08/19 25 06/08/2024 Compr ehens chetna metab olic 1999 panel - Serum or Plasm a glucose [mass/volume ] in serum or plasma 263 mg/dL low: 70mg/d Lhigh: 99mg/d L high Gluco se 263 (H) 70 - 99 mg/dL 06/08 5:17 PM 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[facility] Not Available Not Available 06/28/2024 17:40:48 06/08/1906/08/2024 Compr ehens chetna metab olic 1999 panel - Serum or Plasm a sodium [moles/volum e] in serum or plasma 135 mmol/ L low: 136mmo l/Lhig h: 145mmo l/L low Sodiu m 135 (L) 136 - 145 mmol/ L 06/08 5:17 PM 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[facility] Not Available Not Available 06/28/2024 17:40:48 06/08/1906/08/2024 Compr ehens chetna metab olic 1999 panel - Serum or Plasm a potassium [moles/volum e] in serum or plasma 3.9 mmol/ L low: 3.5mmo l/Lhig h: 5.1mmo l/L Potas sium 3.9 3.5 - 5.1 mmol/ L 06/08 5:17 PM 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[facility] Not Available Not Available 06/28/2024 17:40:48 06/08/19 25 06/08/2024 Compr ehens chetna metab olic 1999 panel - Serum or Plasm a chloride [moles/volum e] in serum or plasma 104 mmol/ L low: 98mmol /Lhigh : 107mmo l/L Chlor james 104 98 - 107 mmol/ L 06/08 5:17 PM 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[facility] Not Available Not Available 06/28/2024 17:40:48 06/08/19 25 06/08/2024 Compr ehens chetna metab olic 1999 panel - Serum or Plasm a carbon dioxide, total [moles/volum e] in serum or plasma 24 mmol/ L low: 22mmol /Lhigh : 29mmol /L CO2 24 22 - 29 mmol/ L 06/08 5:17 PM 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[facility] Not Available Not Available 06/28/2024 17:40:48 06/08/19 25 06/08/2024 Compr ehens chetna metab olic 1999 panel - Serum or Plasm a calcium [mass/volume ] in serum or plasma 8.1 mg/dL low: 8.4mg/ dLhigh : 10.4mg /dL low Calci um 8.1 (L) 8.4 - 10.4 mg/dL 06/08 5:17 PM 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[facility] Not Available Not Available 06/28/2024 17:40:48 06/08/19 25 06/08/2024 Compr ehens chetna metab olic 1999 panel - Serum or Plasm a anion gap in blood 7 mmol/ L low: 6mmol/ Lhigh: 16mmol /L Anion Gap 7 6 - 16 mmol/ L 06/08 5:17 PM 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 Not Available Not Available 06/28/2024 17:40:48 06/08/19 25 06/08/2024 Compr ens chetna metab olic 1999 panel - Serum or Plasm a urea nitrogen [mass/volume ] in serum or plasma 16 mg/dL low: 7mg/dL high: 26mg/d L BUN 16 7 - 26 mg/dL 06/08 5:17 PM 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 Not Available Not Available 06/28/2024 17:40:48 06/08/19 25 06/08/2024 Compr Spark Labsens chetna metab olic 1999 panel - Serum or Plasm a creatinine [mass/volume ] in serum or plasma 0.88 mg/dL low: 0.72mg /dLhig h: 1.25mg /dL Creat inine 0.88 0.72 - 1.25 mg/dL 06/08 5:17 PM 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[facility] Not Available Not Available 06/28/2024 17:40:48 06/08/19 25 06/08/2024 Compr ehens chetna metab olic 2000 panel - Serum or Plasm a alkaline phosphatase [enzymatic activity/vol ume] in serum or plasma 71 U/L low: 40U/Lh igh: 150U/L Alkal ine Phosp hatas e 71 40 - 150 U/L 06/08 5:17 PM 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 Not Available Not Available 06/28/2024 17:40:48 06/08/1906/08/2024 Compr ehens chetna metab olic 2000 panel - Serum or Plasm a alanine aminotransfe rase [enzymatic activity/vol ume] in serum or plasma 13 U/L low: 0U/Lhi gh: 55U/L ALT 13 0 - 55 U/L 06/08 5:17 PM 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[facility] Not Available Not Available 06/28/2024 17:40:48 06/08/19 25 06/08/2024 Compr ehens chetna metab olic 2000 panel - Serum or Plasm a aspartate aminotransfe rase [enzymatic activity/vol ume] in serum or plasma 20 U/L low: 5U/Lhi gh: 34U/L AST 20 5 - 34 U/L 06/08 5:17 PM 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[facility] Not Available Not Available 06/28/2024 17:40:48 06/08/19 25 06/08/2024 Compr [facility] chetna metab olic 1999 panel - Serum or Plasm a protein [mass/volume ] in serum or plasma 5.7 text: 6.4 - 8.3 gm/dL low Prote in Total 5.7 (L) 6.4 - 8.3 gm/dL 06/08 5:17 PM 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[facility] Not Available Not Available 06/28/2024 17:40:48 06/08/19 25 06/08/2024 Compr [facility] chetna metab olic 2000 panel - Serum or Plasm a albumin [mass/volume ] in serum or plasma 2.9 text: 3.4 - 5.0 gm/dL low Album in 2.9 (L) 3.4 - 5.0 gm/dL 06/08 5:17 PM 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[facility] Not Available Not Available 06/28/2024 17:40:48 06/08/19 25 06/08/2024 Compr [facility] chetna metab olic 2000 panel - Serum or Plasm a bilirubin.to kathi [mass/volume ] in serum or plasma 3 mg/dL low: 0.2mg/ dLhigh : 1.2mg/ dL high Bilir ubin Total 3.0 (H) 0.2 - 1.2 mg/dL 06/08 5:17 PM 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[facility] Not Available Not Available 06/28/2024 17:40:48 06/08/1906/08/2024 Compr ehens chetna metab olic 2000 panel - Serum or Plasm a glomerular filtration rate/1.73 sq M.predicted [volume rate/area] in serum, plasma or blood by creatinine-b ased formula (CKD-epi 2020) text: >=90 mL/min /1.73 m2 eGFR by CKD-E PI >90 >=90 mL/mi n/1.7 3 m2 06/08 5:17 PM 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[facility] Not Available Not Available 06/28/2024 17:40:48 06/08/1906/08/2024 Compr ehens chetna metab olic 2000 panel - Serum or Plasm a interpretati on and review of laboratory results Abnorm al Not Available Not Available 17:40:48 06/08/1906/08/2024 CBC W Auto Diffe renti al panel - Blood leukocytes [#/volume] in blood by automated count 4.2 text: 4.0 - 10.7 x10e9/ L WBC 4.2 4.0 - 10.7 x10E9 /L 06/08 5:12 PM 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[facility] Not Available Not Available 06/28/2024 17:40:43 06/08/1906/08/2024 CBC W Auto Diffe renti al panel - Blood erythrocytes [#/volume] in blood by automated count 5.01 text: 4.30 - 5.80 x10e12 /L RBC Count 5.01 4.30 - 5.80 x10E1 2/L 06/08 5:12 PM 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[facility] Not Available Not Available 06/28/2024 17:40:43 06/08/1906/08/2024 CBC W Auto Diffe renti al panel - Blood hemoglobin [mass/volume ] in blood 14.8 g/dL low: 13.3g/ dLhigh : 17.5g/ dL Hemog lobin 14.8 13.3 - 17.5 g/dL 06/08 5:12 PM 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[facility] Not Available Not Available 06/28/2024 17:40:43 06/08/1906/08/2024 CBC W Auto Diffe renti al panel - Blood hematocrit [volume fraction] of blood by automated count 42.1 % low: 38.7%h igh: 51.1% Hemat ocrit 42.1 38.7 - 51.1 % 06/08 5:12 PM 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[facility] Not Available Not Available 06/28/2024 17:40:43 06/08/1906/08/2024 CBC W Auto Diffe easton al panel - Blood MCV [entitic volume] by automated count 84 fL low: 80fLhi gh: 98fL MCV 84.0 80.0 - 98.0 fL 06/08 5:12 PM 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[facility] Not Available Not Available 06/28/2024 17:40:43 06/08/1906/08/2024 CBC W Auto Diffe easton al panel - Blood MCH [entitic mass] by automated count 29.5 pg low: 26.7pg high: 33.6pg MCH 29.5 26.7 - 33.6 pg 06/08 5:12 PM 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[facility] Not Available Not Available 06/28/2024 17:40:43 06/08/1906/08/2024 CBC W Auto Diffe easton villegas panel - Blood MCHC [mass/volume ] by automated count 35.2 g/dL low: 31.7g/ dLhigh : 36.3g/ dL MCHC 35.2 31.7 - 36.3 g/dL 06/08 5:12 PM 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[facility] Not Available Not Available 06/28/2024 17:40:43 06/08/1906/08/2024 CBC W Auto Diffe easton al panel - Blood erythrocyte distribution width [ratio] by automated count 15.9 % low: 11.3%h igh: 14.8% high RDW-C V 15.9 (H) 11.3 - 14.8 % 06/08 5:12 PM 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[facility] Not Available Not Available 06/28/2024 17:40:43 06/08/1906/08/2024 CBC W Auto Diffe renti al panel - Blood platelets [#/volume] in blood by automated count 67 text: 150 - 420 x10e9/ L low Plate let Count 67 (L) 150 - 420 x10E9 /L 06/08 5:12 PM 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[facility] Not Available Not Available 06/28/2024 17:40:43 06/08/1906/08/2024 CBC W Auto Diffe renti al panel - Blood platelet mean volume [entitic volume] in blood by automated count 10.4 fL low: 7.8fLh igh: 11.4fL MPV 10.4 7.8 - 11.4 fL 06/08 5:12 PM 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[facility] Not Available Not Available 06/28/2024 17:40:43 06/08/1906/08/2024 CBC W Auto Diffe renti al panel - Blood neutrophils/ 100 leukocytes in blood by automated count 67.5 % low: 41%hig h: 74% Neutr ophil % 67.5 41.0 - 74.0 % 06/08 5:12 PM 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[facility] Not Available Not Available 06/28/2024 17:40:43 06/08/1906/08/2024 CBC W Auto Diffe renti al panel - Blood lymphocytes/ 100 leukocytes in blood by automated count 15.4 % low: 17%hig h: 47% low Lymph ocyte % 15.4 (L) 17.0 - 47.0 % 06/08 5:12 PM 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[facility] Not Available Not Available 06/28/2024 17:40:43 06/08/1906/08/2024 CBC W Auto Diffe renti al panel - Blood monocytes/10 0 leukocytes in blood by automated count 15.9 % low: 3%high : 11% high Monoc yte % 15.9 (H) 3.0 - 11.0 % 06/08 5:12 PM 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 Not Available Not Available 06/28/2024 17:40:43 06/08/19 25 06/08/2024 CBC W Auto Diffe renti al panel - Blood eosinophils/ 100 leukocytes in blood by automated count 0 % low: 0%high : 7% Eosin ophil % 0.0 0.0 - 7.0 % 06/08 5:12 PM 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[facility] Not Available Not Available 06/28/2024 17:40:43 06/08/1906/08/2024 CBC W Auto Diffe renti al panel - Blood basophils/10 0 leukocytes in blood by automated count 0.7 % low: 0%high : 1.6% Basop hil % 0.7 0.0 - 1.6 % 06/08 5:12 PM 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[facility] Not Available Not Available 06/28/2024 17:40:43 06/08/1906/08/2024 CBC W Auto Diffe renti al panel - Blood immature granulocytes /100 leukocytes in blood by automated count 0.5 % low: 0%high : 1% Immat ure Granu locyt es % 0.5 0.0 - 1.0 % 06/08 5:12 PM 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[facility] Not Available Not Available 06/28/2024 17:40:43 06/08/1906/08/2024 CBC W Auto Diffe renti al panel - Blood neutrophils [#/volume] in blood by automated count 2.8 text: 1.60 - 7.50 x10e9/ L Neutr ophil Absol [place] 2.80 1.60 - 7.50 x10E9 /L 06/08 5:12 PM 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[facility] Not Available Not Available 06/28/2024 17:40:43 06/08/1906/08/2024 CBC W Auto Diffe renti al panel - Blood lymphocytes [#/volume] in blood by automated count 0.64 text: 1.00 - 4.40 x10e9/ L low Lymph ocyte Absol [place] 0.64 (L) 1.00 - 4.40 x10E9 /L 06/08 5:12 PM 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[facility] Not Available Not Available 06/28/2024 17:40:43 06/08/19 25 06/08/2024 CBC W Auto Diffe renti al panel - Blood monocytes [#/volume] in blood by automated count 0.66 text: 0.15 - 1.00 x10e9/ L Monoc yte Absol [place] 0.66 0.15 - 1.00 x10E9 /L 06/08 5:12 PM 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[facility] Not Available Not Available 06/28/2024 17:40:43 06/08/19 25 06/08/2024 CBC W Auto Diffe renti al panel - Blood eosinophils [#/volume] in blood 0 text: 0.00 - 0.60 x10e9/ L Eosin ophil Absol [place] 0.00 0.00 - 0.60 x10E9 /L 06/08 5:12 PM 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[facility] Not Available Not Available 06/28/2024 17:40:43 06/08/1906/08/2024 CBC W Auto Diffe renti al panel - Blood basophils [#/volume] in blood by automated count 0.03 text: 0.00 - 0.13 x10e9/ L Basop hil Absol [place] 0.03 0.00 - 0.13 x10E9 /L 06/08 5:12 PM 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[facility] Not Available Not Available 06/28/2024 17:40:43 06/08/19 25 06/08/2024 CBC W Auto Diffe renti al panel - Blood interpretati on and review of laboratory results Abnorm al Not Available Not Available 17:40:43 06/08/19 25 06/08/2024 Natri ureti c pepti de B [Mass /volu me] in Serum or Plasm a natriuretic peptide B [mass/volume ] in serum or plasma 345 pg/mL high: 100pg/ mL high BNP 345 (H) <=100 pg/mL 06/08 5:19 PM 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[facility] Not Available Not Available 06/28/2024 17:40:42 06/08/19 25 06/08/2024 Natri ureti c pepti de B [Mass /volu me] in Serum or Plasm a interpretati on and review of laboratory results Abnorm al Not Available Not Available 17:40:42 06/08/19 25 06/09/2024 Gluco se [Mass /volu me] in Arter ial blood glucose [mass/volume ] in capillary blood by glucometer 265 mg/dL low: 70mg/d Lhigh: 99mg/d L high Gluco se WB/PO C 265 (H) 70 - 99 mg/dL 06/09 8:23 AM 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[facility] Not Available Not Available 06/28/2024 17:40:48 06/08/19 25 06/09/2024 Gluco se [Mass /volu me] in Arter ial blood specimen source identified Cap Finger stick Speci men Type Vincent De Paz rstic k 06/09 8:23 AM 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[facility] Not Available Not Available 06/28/2024 17:40:48 06/08/19 25 06/09/2024 Gluco se [Mass /volu me] in Arter ial blood interpretati on and review of laboratory results Abnorm al Not Available Not Available 17:40:48 06/09/19 25 06/09/2024 Gluco se [Mass /volu me] in Arter ial blood glucose [mass/volume ] in capillary blood by glucometer 232 mg/dL low: 70mg/d Lhigh: 99mg/d L high Gluco se WB/PO C 232 (H) 70 - 99 mg/dL 06/09 9:47 PM 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[facility] Not Available Not Available 06/28/2024 17:40:48 06/09/19 25 06/09/2024 Gluco se [Mass /volu me] in Arter ial blood specimen source identified Cap Finger stick Speci men Type Vincent De Paz rstic k 06/09 9:47 PM 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[facility] Not Available Not Available 06/28/2024 17:40:48 06/09/19 25 06/09/2024 Gluco se [Mass /volu me] in Arter ial blood interpretati on and review of laboratory results Abnorm al Not Available Not Available 17:40:48 06/09/19 25 06/09/2024 Gluco se [Mass /volu me] in Arter ial blood glucose [mass/volume ] in capillary blood by glucometer 209 mg/dL low: 70mg/d Lhigh: 99mg/d L high Gluco se WB/PO C 209 (H) 70 - 99 mg/dL 06/09 5:57 PM 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[facility] Not Available Not Available 06/28/2024 17:40:48 06/09/19 25 06/09/2024 Gluco se [Mass /volu me] in Arter ial blood specimen source identified Cap Finger stick Speci men Type Cap Lanie rstic k 06/09 5:57 PM 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[facility] Not Available Not Available 06/28/2024 17:40:48 06/09/19 25 06/09/2024 Gluco se [Mass /volu me] in Arter ial blood interpretati on and review of laboratory results Abnorm al Not Available Not Available 17:40:48 06/09/19 25 06/09/2024 Gluco se [Mass /volu me] in Arter ial blood glucose [mass/volume ] in capillary blood by glucometer 292 mg/dL low: 70mg/d Lhigh: 99mg/d L high Gluco se WB/PO C 292 (H) 70 - 99 mg/dL 06/09 1:54 PM 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[facility] Not Available Not Available 06/28/2024 17:40:48 06/09/19 25 06/09/2024 Gluco se [Mass /volu me] in Arter ial blood specimen source identified Cap Finger stick Speci men Type Cap Zandra rstic k 06/09 1:54 PM 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[facility] Not Available Not Available 06/28/2024 17:40:48 06/09/19 25 06/09/2024 Gluco se [Mass /volu me] in Arter ial blood interpretati on and review of laboratory results Abnorm al Not Available Not Available 17:40:48 06/09/19 25 06/09/2024 Gluco se [Mass /volu me] in Arter ial blood glucose [mass/volume ] in capillary blood by glucometer 233 mg/dL low: 70mg/d Lhigh: 99mg/d L high Gluco se WB/PO C 233 (H) 70 - 99 mg/dL 06/09 8:24 AM 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[facility] Not Available Not Available 06/28/2024 17:40:48 06/09/19 25 06/09/2024 Gluco se [Mass /volu me] in Arter ial blood specimen source identified Cap Finger stick Speci men Type Cap Zandra rstic k 06/09 8:24 AM 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[facility] Not Available Not Available 06/28/2024 17:40:48 06/09/19 25 06/09/2024 Gluco se [Mass /volu me] in Arter ial blood interpretati on and review of laboratory results Abnorm al Not Available Not Available 17:40:48 06/09/19 25 06/09/2024 Gluco se [Mass /volu me] in Arter ial blood glucose [mass/volume ] in capillary blood by glucometer 237 mg/dL low: 70mg/d Lhigh: 99mg/d L high Gluco se WB/PO C 237 (H) 70 - 99 mg/dL 06/09 8:24 AM 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[facility] Not Available Not Available 06/28/2024 17:40:48 06/09/19 25 06/09/2024 Gluco se [Mass /volu me] in Arter ial blood specimen source identified Cap Finger stick Speci men Type Cap Lanie rstic k 06/09 8:24 AM 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[facility] Not Available Not Available 06/28/2024 17:40:48 06/09/19 25 06/09/2024 Gluco se [Mass /volu me] in Arter ial blood interpretati on and review of laboratory results Abnorm al Not Available Not Available 17:40:48 06/09/19 25 06/09/2024 CBC panel - Blood by Autom ated count leukocytes [#/volume] in blood by automated count 3 text: 4.0 - 10.7 x10e9/ L low WBC 3.0 (L) 4.0 - 10.7 x10E9 /L 06/09 2:37 AM 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[facility] Not Available Not Available 06/28/2024 17:40:48 06/09/19 25 06/09/2024 CBC panel - Blood by Autom ated count erythrocytes [#/volume] in blood by automated count 4.95 text: 4.30 - 5.80 x10e12 /L RBC Count 4.95 4.30 - 5.80 x10E1 2/L 06/09 2:37 AM [employer] [facility] Not Available Not Available 06/28/2024 17:40:48 06/09/1906/09/2024 CBC panel - Blood by Autom ated count hemoglobin [mass/volume ] in blood 14.8 g/dL low: 13.3g/ dLhigh : 17.5g/ dL Hemog lobin 14.8 13.3 - 17.5 g/dL 06/09 2:37 AM 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[employer] Not Available Not Available 06/28/2024 17:40:48 06/09/1906/09/2024 CBC panel - Blood by Autom ated count hematocrit [volume fraction] of blood by automated count 42 % low: 38.7%h igh: 51.1% Hemat ocrit 42.0 38.7 - 51.1 % 06/09 2:37 AM [employer] [facility] Not Available Not Available 06/28/2024 17:40:48 06/09/1906/09/2024 CBC panel - Blood by Autom ated count MCV [entitic volume] by automated count 84.8 fL low: 80fLhi gh: 98fL MCV 84.8 80.0 - 98.0 fL 06/09 2:37 AM [employer] [facility] Not Available Not Available 06/28/2024 17:40:48 06/09/1906/09/2024 CBC panel - Blood by Autom ated count MCH [entitic mass] by automated count 29.9 pg low: 26.7pg high: 33.6pg MCH 29.9 26.7 - 33.6 pg 06/09 2:37 AM [employer] [facility] Not Available Not Available 06/28/2024 17:40:48 06/09/1906/09/2024 CBC panel - Blood by Autom ated count MCHC [mass/volume ] by automated count 35.2 g/dL low: 31.7g/ dLhigh : 36.3g/ dL MCHC 35.2 31.7 - 36.3 g/dL 06/09 2:37 AM 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 [facility] Not Available Not Available 06/28/2024 17:40:48 06/09/1906/09/2024 CBC panel - Blood by Autom ated count erythrocyte distribution width [ratio] by automated count 15.7 % low: 11.3%h igh: 14.8% high RDW-C V 15.7 (H) 11.3 - 14.8 % 06/09 2:37 AM 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[employer] [facility] Not Available Not Available 06/28/2024 17:40:48 06/09/1906/09/2024 CBC panel - Blood by Autom ated count platelets [#/volume] in blood by automated count 67 text: 150 - 420 x10e9/ L low Plate let Count 67 (L) 150 - 420 x10E9 /L 06/09 2:37 AM 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[employer] [facility] Not Available Not Available 06/28/2024 17:40:48 06/09/1906/09/2024 CBC panel - Blood by Autom ated count platelet mean volume [entitic volume] in blood by automated count 11.8 fL low: 7.8fLh igh: 11.4fL high MPV 11.8 (H) 7.8 - 11.4 fL 06/09 2:37 AM [employer] [facility] Not Available Not Available 06/28/2024 17:40:48 06/09/1906/09/2024 CBC panel - Blood by Autom ated count interpretati on and review of laboratory results Abnorm al Not Available Not Available 17:40:48 06/09/1906/09/2024 Thyro tropi n [Unit s/vol ume] in Serum or Plasm a thyrotropin [units/volum e] in serum or plasma by detection limit <= 0.005 mIU/L 0.559 text: 0.350 - 4.940 uIU/mL TSH 0.559 0.350 - 4.940 uIU/m L 06/09 2:56 AM 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[employer] [facility] Not Available Not Available 06/28/2024 17:40:43 06/09/1906/09/2024 Thyro tropi n [Unit s/vol ume] in Serum or Plasm a interpretati on and review of laboratory results Normal Not Available Not Available 06/05 17:40:43 06/09/1906/09/2024 Hemog lobin A1c/H emogl obin. total in Blood hemoglobin A1C/hemoglob in.total in blood 9.1 % high: 5.7% high Hemog lobin A1c 9.1 (H) <5.7 % 06/09 2:28 AM 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[facility] Not Available Not Available 06/28/2024 17:40:43 06/09/19 25 06/09/2024 Hemog lobin A1c/H emogl obin. total in Blood glucose mean value [mass/volume ] in blood estimated from glycated hemoglobin 214 mg/dL Estim ated [place] ge Gluco se 214 mg/dL 06/09 2:28 AM 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[facility] Not Available Not Available 06/28/2024 17:40:43 06/09/1906/09/2024 Hemog lobin A1c/H emogl obin. total in Blood Unknown Analyte HbA1c Interp retati on: Normal : < 5.7% Pre-di abetes : 5.7-6. 4% Diabet es: Equal to or greate r than 6.5% Test result s diagno stic of diabet es should be repeat ed for confir mation . Treatm ent target values recomm ended by ADA and other clinic al organi zation s should be used to evalua te metabo lic contro l in patien ts. This test should not replac e glucos e testin g for patien ts with Type 1 diabet es, pediat joes patien ts, or pregna nt women. Falsel y low HbA1c result s may be observ ed in patien ts with clinic al condit ions that shorte n erythr ocyte life span or decrea se mean erythr ocyte age such as the presen ce of unstab le hemogl obin varian ts, elevat ed hemogl obin F level or other causes of hemoly tic anemia . HbA1c may not accura tely reflec t glycem ic contro l when clinic al condit ions that affect erythr ocyte surviv al are presen t. Severe Iron defici ency anemia may yield falsel y high result s. Hemogl obin A1c assay should not be used to diagno se or monito r diabet es in patien ts with malign rivera, recent blood transf usion, chroni c kidney or liver diseas e. This method may yield falsel y low result s when hemogl obin (HbF) exceed s 5% in the specim en. The [employer] assay for the measur ement of HbA1c is a Nation al Glycoh emoglo bin Standa rdizat ion Progra m (NGSP) certif ied method . HbA1c Inter preta tion: Jennifer l: < 5.7% Pre-d iabet es: 5.7-6 .4% Diabe silvia: Equal to or great er than 6.5% Test resul ts diagn ostic of diabe silvia shoul d be repea manny for confi rmati on. Treat ment targe t value s recom yanely d by ADA and other clini nicola organ izati ons shoul d be used to evalu ate metab olic contr ol in patie nts. This test shoul d not repla ce gluco se testi ng for patie nts with Type 1 diabe silvia, pedia tric patie nts, or pregn ant women . False ly low HbA1c resul ts may be obser mayo in patie nts with clini nicola condi tions that short en eryth rocyt e life span or decre ase mean eryth rocyt e age such as the prese nce of unsta ble hemog lobin varia nts, eleva manny hemog lobin F level or other cause s of hemol ytic anemi a. HbA1c may not accur ately refle ct glyce otis contr ol when clini nicola condi tions that affec t eryth rocyt e survi roseline are prese nt. Sever e Iron defic iency anemi a may yield false ly high resul ts. Hemog lobin A1c assay shoul d not be used to diagn ose or monit or diabe silvia in patie nts with malig rich , recen t blood trans fusio n, chron ic kidne y or liver disea se. This metho d may yield false ly low resul ts when hemog lobin (HbF) excee ds 5% in the speci men. The [employer] assay for the measu remen t of HbA1c is a Natio nal Glyco hemog lobin Stand ardiz ation Progr am (NGSP ) certi fied metho d. Not Available Not Available 06/28/2024 17:40:43 06/09/19 25 06/09/2024 Hemog lobin A1c/H emogl obin. total in Blood interpretati on and review of laboratory results Abnorm al Not Available Not Available 17:40:43 06/09/19 25 06/09/2024 Compr [employer] chetna metab olic 1999 panel - Serum or Plasm a glucose [mass/volume ] in serum or plasma 220 mg/dL low: 70mg/d Lhigh: 99mg/d L high Gluco se 220 (H) 70 - 99 mg/dL 06/09 3:01 AM 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[facility] Not Available Not Available 06/28/2024 17:40:42 06/09/19 25 06/09/2024 Compr [facility] chetna metab olic 2000 panel - Serum or Plasm a sodium [moles/volum e] in serum or plasma 134 mmol/ L low: 136mmo l/Lhig h: 145mmo l/L low Sodiu m 134 (L) 136 - 145 mmol/ L 06/09 3:01 AM 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[facility] Not Available Not Available 06/28/2024 17:40:42 06/09/19 25 06/09/2024 Compr [employer] chetna metab olic 2000 panel - Serum or Plasm a potassium [moles/volum e] in serum or plasma 4.2 mmol/ L low: 3.5mmo l/Lhig h: 5.1mmo l/L Potas sium 4.2 3.5 - 5.1 mmol/ L 06/09 3:01 AM 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[facility] Not Available Not Available 06/28/2024 17:40:42 06/09/19 25 06/09/2024 Compr [facility] che[place] metab olic 2000 panel - Serum or Plasm a chloride [moles/volum e] in serum or plasma 104 mmol/ L low: 98mmol /Lhigh : 107mmo l/L Chlor james 104 98 - 107 mmol/ L 06/09 3:01 AM 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[facility] Not Available Not Available 06/28/2024 17:40:42 06/09/19 25 06/09/2024 Compr ehens chetna metab olic 1999 panel - Serum or Plasm a carbon dioxide, total [moles/volum e] in serum or plasma 21 mmol/ L low: 22mmol /Lhigh : 29mmol /L low CO2 21 (L) 22 - 29 mmol/ L 06/09 3:01 AM [facility] Not Available Not Available 06/28/2024 17:40:42 06/09/1906/09/2024 Compr ehens chetna metab olic 2000 panel - Serum or Plasm a calcium [mass/volume ] in serum or plasma 8.1 mg/dL low: 8.4mg/ dLhigh : 10.4mg /dL low Calci um 8.1 (L) 8.4 - 10.4 mg/dL 06/09 3:01 AM [facility] Not Available Not Available 06/28/2024 17:40:42 06/09/19 25 06/09/2024 Compr ehens chetna metab olic 2000 panel - Serum or Plasm a anion gap in blood 9 mmol/ L low: 6mmol/ Lhigh: 16mmol /L Anion Gap 9 6 - 16 mmol/ L 06/09 3:01 AM [facility] [employer] [facility] Not Available Not Available 06/28/2024 17:40:42 06/09/19 25 06/09/2024 Compr ehens chetna metab olic 2000 panel - Serum or Plasm a urea nitrogen [mass/volume ] in serum or plasma 18 mg/dL low: 7mg/dL high: 26mg/d L BUN 18 7 - 26 mg/dL 06/09 3:01 AM [facility] Not Available Not Available 06/28/2024 17:40:42 06/09/19 25 06/09/2024 Compr ehens chetna metab olic 2000 panel - Serum or Plasm a creatinine [mass/volume ] in serum or plasma 0.85 mg/dL low: 0.72mg /dLhig h: 1.25mg /dL Creat inine 0.85 0.72 - 1.25 mg/dL 06/09 3:01 AM [facility] Not Available Not Available 06/28/2024 17:40:42 06/09/19 25 06/09/2024 Compr ehens chetna metab olic 1999 panel - Serum or Plasm a alkaline phosphatase [enzymatic activity/vol ume] in serum or plasma 65 U/L low: 40U/Lh igh: 150U/L Alkal ine Phosp hatas e 65 40 - 150 U/L 06/09 3:01 AM 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[facility] Not Available Not Available 06/28/2024 17:40:42 06/09/19 25 06/09/2024 Compr ehens chetna metab olic 1999 panel - Serum or Plasm a alanine aminotransfe rase [enzymatic activity/vol ume] in serum or plasma 14 U/L low: 0U/Lhi gh: 55U/L ALT 14 0 - 55 U/L 06/09 3:01 AM [facility] Not Available Not Available 06/28/2024 17:40:42 06/09/19 25 06/09/2024 Compr ehens chetna metab olic 1999 panel - Serum or Plasm a aspartate aminotransfe rase [enzymatic activity/vol ume] in serum or plasma 50 U/L low: 5U/Lhi gh: 34U/L high AST 50 (H) 5 - 34 U/L 06/09 3:01 AM [facility] [employer] [facility] Not Available Not Available 06/28/2024 17:40:42 06/09/19 25 06/09/2024 Compr ehens chetna metab olic 1999 panel - Serum or Plasm a protein [mass/volume ] in serum or plasma 5.8 text: 6.4 - 8.3 gm/dL low Prote in Total 5.8 (L) 6.4 - 8.3 gm/dL 06/09 3:01 AM [facility] Not Available Not Available 06/28/2024 17:40:42 06/09/19 25 06/09/2024 Compr ehens chetna metab olic 2000 panel - Serum or Plasm a albumin [mass/volume ] in serum or plasma 2.8 text: 3.4 - 5.0 gm/dL low Album in 2.8 (L) 3.4 - 5.0 gm/dL 06/09 3:01 AM 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[facility] Not Available Not Available 06/28/2024 17:40:42 06/09/1906/09/2024 Compr ehens chetna metab olic 1999 panel - Serum or Plasm a bilirubin.to kathi [mass/volume ] in serum or plasma 3.2 mg/dL low: 0.2mg/ dLhigh : 1.2mg/ dL high Bilir ubin Total 3.2 (H) 0.2 - 1.2 mg/dL 06/09 3:01 AM 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[facility] Not Available Not Available 06/28/2024 17:40:42 06/09/1906/09/2024 Compr ehens chetna metab olic 2000 panel - Serum or Plasm a glomerular filtration rate/1.73 sq M.predicted [volume rate/area] in serum, plasma or blood by creatinine-b ased formula (CKD-epi 2020) text: >=90 mL/min /1.73 m2 eGFR by CKD-E PI >90 >=90 mL/mi n/1.7 3 m2 06/09 3:01 AM 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[facility] Not Available Not Available 06/28/2024 17:40:42 06/09/1906/09/2024 Compr ehens chetna metab olic 2000 panel - Serum or Plasm a interpretati on and review of laboratory results Abnorm al Not Available Not Available 17:40:42 06/09/1906/09/2024 Phosp hate [Mass /volu me] in Serum or Plasm a phosphate [mass/volume ] in serum or plasma 3.1 mg/dL low: 2.5mg/ dLhigh : 4.5mg/ dL Phosp horus 3.1 2.5 - 4.5 mg/dL 06/09 2:40 AM 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[facility] Not Available Not Available 06/28/2024 17:40:42 06/09/19 25 06/09/2024 Phosp hate [Mass /volu me] in Serum or Plasm a interpretati on and review of laboratory results Normal Not Available Not Available 06/05 17:40:42 06/09/1906/09/2024 Magne sium [Mass /volu me] in Serum or Plasm a magnesium [mass/volume ] in serum or plasma 1.7 mg/dL low: 1.6mg/ dLhigh : 2.6mg/ dL Magne sium 1.7 1.6 - 2.6 mg/dL 06/09 2:40 AM 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[facility] Not Available Not Available 06/28/2024 17:40:42 06/09/1906/09/2024 Magne sium [Mass /volu me] in Serum or Plasm a interpretati on and review of laboratory results Normal Not Available Not Available 06/05 17:40:42 06/09/1906/09/2024 Lipid 1995 panel - Serum or Plasm a cholesterol [mass/volume ] in serum or plasma 69 mg/dL high: 200mg/ dL Loretta stero l 69 <200 mg/dL 06/09 2:40 AM 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[employer] [facility] Not Available Not Available 06/28/2024 17:40:42 06/09/1906/09/2024 Lipid 1995 panel - Serum or Plasm a triglyceride [mass/volume ] in serum or plasma 99 mg/dL high: 150mg/ dL Trigl yceri patricia 99 <150 mg/dL 06/09 2:40 AM [employer] [facility] Not Available Not Available 06/28/2024 17:40:42 06/09/19 25 06/09/2024 Lipid 1995 panel - Serum or Plasm a cholesterol in HDL [mass/volume ] in serum or plasma 19 mg/dL low: 40mg/d L low HDL Loretta stero l 19 (L) >40 mg/dL 06/09 2:40 AM 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[facility] Not Available Not Available 06/28/2024 17:40:42 06/09/19 25 06/09/2024 Lipid 1995 panel - Serum or Plasm a cholesterol in LDL [mass/volume ] in serum or plasma by calculation 30 mg/dL high: 130mg/ dL LDL Calcu lated 30 <130 mg/dL 06/09 2:40 AM 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[facility] Not Available Not Available 06/28/2024 17:40:42 06/09/19 25 06/09/2024 Lipid 1996 panel - Serum or Plasm a cholesterol in VLDL [mass/volume ] in serum or plasma by calculation 20 mg/dL high: 30mg/d L VLDL Calcu lated 20 <=30 mg/dL 06/09 2:40 AM 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[employer] [facility] Not Available Not Available 06/28/2024 17:40:42 06/09/19 25 06/09/2024 Lipid 1996 panel - Serum or Plasm a cholesterol. total/choles terol in HDL [mass ratio] in serum or plasma 3.6 high: 4.5 Chol HDL Ratio 3.6 <4.5 06/09 2:40 AM 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[employer] [facility] Not Available Not Available 06/28/2024 17:40:42 06/09/19 25 06/09/2024 Lipid 1996 panel - Serum or Plasm a cholesterol in LDL/choleste rol in HDL [mass ratio] in serum or plasma 1.6 high: 5 LDL/H DL Ratio 1.6 <5.0 06/09 2:40 AM 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[employer] [facility] Not Available Not Available 06/28/2024 17:40:42 06/09/19 25 06/09/2024 Lipid 1996 panel - Serum or Plasm a interpretati on and review of laboratory results Abnorm al Not Available Not Available 17:40:42 06/10/19 25 06/10/2024 Gluco se [Mass /volu me] in Arter ial blood glucose [mass/volume ] in capillary blood by glucometer 159 mg/dL low: 70mg/d Lhigh: 99mg/d L high Gluco se WB/PO C 159 (H) 70 - 99 mg/dL 06/10 12:53 PM 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[employer] [facility] Not Available Not Available 06/28/2024 17:40:43 06/10/1906/10/2024 Gluco se [Mass /volu me] in Arter ial blood specimen source identified Cap Finger stick Speci men Type Cap Finge rstic k 06/10 12:53 PM 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[employer] [facility] Not Available Not Available 06/28/2024 17:40:43 06/10/19 25 06/10/2024 Gluco se [Mass /volu me] in Arter ial blood interpretati on and review of laboratory results Abnorm al Not Available Not Available 17:40:43 06/10/19 25 06/10/2024 Gluco se [Mass /volu me] in Arter ial blood glucose [mass/volume ] in capillary blood by glucometer 142 mg/dL low: 70mg/d Lhigh: 99mg/d L high Gluco se WB/PO C 142 (H) 70 - 99 mg/dL 06/10 1:24 PM 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[facility] Not Available Not Available 06/28/2024 17:40:48 06/10/19 25 06/10/2024 Gluco se [Mass /volu me] in Arter ial blood specimen source identified Cap Finger stick Speci men Type Vincent De Paz rstic k 06/10 1:24 PM 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[facility] Not Available Not Available 06/28/2024 17:40:48 06/10/19 25 06/10/2024 Gluco se [Mass /volu me] in Arter ial blood interpretati on and review of laboratory results Abnorm al Not Available Not Available 17:40:48 06/10/19 25 06/10/2024 Gluco se [Mass /volu me] in Arter ial blood glucose [mass/volume ] in capillary blood by glucometer 86 mg/dL low: 70mg/d Lhigh: 99mg/d L Gluco se WB/PO C 86 70 - 99 mg/dL 06/10 7:16 AM 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[facility] Not Available Not Available 06/28/2024 17:40:48 06/10/19 25 06/10/2024 Gluco se [Mass /volu me] in Arter ial blood specimen source identified Cap Finger stick Speci men Type Cap Lanie rstic k 06/10 7:16 AM 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[facility] Not Available Not Available 06/28/2024 17:40:48 06/10/19 25 06/10/2024 Gluco se [Mass /volu me] in Arter ial blood glucose [mass/volume ] in capillary blood by glucometer 74 mg/dL low: 70mg/d Lhigh: 99mg/d L Gluco se WB/PO C 74 70 - 99 mg/dL 06/10 6:43 AM 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[facility] Not Available Not Available 06/28/2024 17:40:48 06/10/1906/10/2024 Gluco se [Mass /volu me] in Arter ial blood specimen source identified Cap Finger stick Speci men Type Cap Finge rstic k 06/10 6:43 AM 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[facility] Not Available Not Available 06/28/2024 17:40:48 06/10/1906/10/2024 CBC panel - Blood by Autom ated count leukocytes [#/volume] in blood by automated count 2.3 text: 4.0 - 10.7 x10e9/ L low WBC 2.3 (L) 4.0 - 10.7 x10E9 /L 06/10 5:36 AM 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[facility] Not Available Not Available 06/28/2024 17:40:43 06/10/1906/10/2024 CBC panel - Blood by Autom ated count erythrocytes [#/volume] in blood by automated count 4.44 text: 4.30 - 5.80 x10e12 /L RBC Count 4.44 4.30 - 5.80 x10E1 2/L 06/10 5:36 AM 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[facility] Not Available Not Available 06/28/2024 17:40:43 06/10/1906/10/2024 CBC panel - Blood by Autom ated count hemoglobin [mass/volume ] in blood 13.2 g/dL low: 13.3g/ dLhigh : 17.5g/ dL low Hemog lobin 13.2 (L) 13.3 - 17.5 g/dL 06/10 5:36 AM 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[facility] Not Available Not Available 06/28/2024 17:40:43 06/10/1906/10/2024 CBC panel - Blood by Autom ated count hematocrit [volume fraction] of blood by automated count 37.8 % low: 38.7%h igh: 51.1% low Hemat ocrit 37.8 (L) 38.7 - 51.1 % 06/10 5:36 AM 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[facility] Not Available Not Available 06/28/2024 17:40:43 06/10/1906/10/2024 CBC panel - Blood by Autom ated count MCV [entitic volume] by automated count 85.1 fL low: 80fLhi gh: 98fL MCV 85.1 80.0 - 98.0 fL 06/10 5:36 AM 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[facility] Not Available Not Available 06/28/2024 17:40:43 06/10/1906/10/2024 CBC panel - Blood by Autom ated count MCH [entitic mass] by automated count 29.7 pg low: 26.7pg high: 33.6pg MCH 29.7 26.7 - 33.6 pg 06/10 5:36 AM 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[facility] Not Available Not Available 06/28/2024 17:40:43 06/10/1906/10/2024 CBC panel - Blood by Autom ated count MCHC [mass/volume ] by automated count 34.9 g/dL low: 31.7g/ dLhigh : 36.3g/ dL MCHC 34.9 31.7 - 36.3 g/dL 06/10 5:36 AM 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[facility] Not Available Not Available 06/28/2024 17:40:43 06/10/1906/10/2024 CBC panel - Blood by Autom ated count erythrocyte distribution width [ratio] by automated count 15.2 % low: 11.3%h igh: 14.8% high RDW-C V 15.2 (H) 11.3 - 14.8 % 06/10 5:36 AM [facility] Not Available Not Available 06/28/2024 17:40:43 06/10/1906/10/2024 CBC panel - Blood by Autom ated count platelets [#/volume] in blood by automated count 64 text: 150 - 420 x10e9/ L low Plate let Count 64 (L) 150 - 420 x10E9 /L 06/10 5:36 AM 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[facility] Not Available Not Available 06/28/2024 17:40:43 06/10/1906/10/2024 CBC panel - Blood by Autom ated count platelet mean volume [entitic volume] in blood by automated count 10.9 fL low: 7.8fLh igh: 11.4fL MPV 10.9 7.8 - 11.4 fL 06/10 5:36 AM 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[employer] [facility] Not Available Not Available 06/28/2024 17:40:43 06/10/19 25 06/10/2024 CBC panel - Blood by Autom ated count interpretati on and review of laboratory results Abnorm al Not Available Not Available 17:40:43 06/10/1906/10/2024 Basic metab olic 2000 panel - Serum or Plasm a glucose [mass/volume ] in serum or plasma 107 mg/dL low: 70mg/d Lhigh: 99mg/d L high Gluco se 107 (H) 70 - 99 mg/dL 06/10 5:25 AM [employer] [facility] Not Available Not Available 06/28/2024 17:40:42 06/10/19 25 06/10/2024 Basic metab olic 2000 panel - Serum or Plasm a sodium [moles/volum e] in serum or plasma 139 mmol/ L low: 136mmo l/Lhig h: 145mmo l/L Sodiu m 139 136 - 145 mmol/ L 06/10 5:25 AM [employer] [facility] Not Available Not Available 06/28/2024 17:40:42 06/10/19 25 06/10/2024 Basic metab olic 2000 panel - Serum or Plasm a potassium [moles/volum e] in serum or plasma 3.4 mmol/ L low: 3.5mmo l/Lhig h: 5.1mmo l/L low Potas sium 3.4 (L) 3.5 - 5.1 mmol/ L 06/10 5:25 AM [employer] [facility] Not Available Not Available 06/28/2024 17:40:42 06/10/19 25 06/10/2024 Basic metab olic 2000 panel - Serum or Plasm a chloride [moles/volum e] in serum or plasma 107 mmol/ L low: 98mmol /Lhigh : 107mmo l/L Chlor james 107 98 - 107 mmol/ L 06/10 5:25 AM 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[facility] Not Available Not Available 06/28/2024 17:40:42 06/10/1906/10/2024 Basic metab olic 2000 panel - Serum or Plasm a carbon dioxide, total [moles/volum e] in serum or plasma 22 mmol/ L low: 22mmol /Lhigh : 29mmol /L CO2 22 22 - 29 mmol/ L 06/10 5:25 AM 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[facility] Not Available Not Available 06/28/2024 17:40:42 06/10/1906/10/2024 Basic metab olic 2000 panel - Serum or Plasm a calcium [mass/volume ] in serum or plasma 8.2 mg/dL low: 8.4mg/ dLhigh : 10.4mg /dL low Calci um 8.2 (L) 8.4 - 10.4 mg/dL 06/10 5:25 AM 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[facility] Not Available Not Available 06/28/2024 17:40:42 06/10/1906/10/2024 Basic metab olic 2000 panel - Serum or Plasm a anion gap in blood 10 mmol/ L low: 6mmol/ Lhigh: 16mmol /L Anion Gap 10 6 - 16 mmol/ L 06/10 5:25 AM 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[facility] Not Available Not Available 06/28/2024 17:40:42 06/10/19 25 06/10/2024 Basic metab olic 2000 panel - Serum or Plasm a urea nitrogen [mass/volume ] in serum or plasma 15 mg/dL low: 7mg/dL high: 26mg/d L BUN 15 7 - 26 mg/dL 06/10 5:25 AM 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[facility] Not Available Not Available 06/28/2024 17:40:42 06/10/19 25 06/10/2024 Basic metab olic 2000 panel - Serum or Plasm a creatinine [mass/volume ] in serum or plasma 0.7 mg/dL low: 0.72mg /dLhig h: 1.25mg /dL low Creat inine 0.70 (L) 0.72 - 1.25 mg/dL 06/10 5:25 AM 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[facility] Not Available Not Available 06/28/2024 17:40:42 06/10/19 25 06/10/2024 Basic metab olic 2000 panel - Serum or Plasm a glomerular filtration rate/1.73 sq M.predicted [volume rate/area] in serum, plasma or blood by creatinine-b ased formula (CKD-epi 2020) text: >=90 mL/min /1.73 m2 eGFR by CKD-E PI >90 >=90 mL/mi n/1.7 3 m2 06/10 5:25 AM 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[facility] Not Available Not Available 06/28/2024 17:40:42 06/10/19 25 06/10/2024 Basic metab olic 2000 panel - Serum or Plasm a interpretati on and review of laboratory results Abnorm al Not Available Not Available 17:40:42 02/24/20 24 02/23/2024 XR, [facility] [address] [place], [address], 02/24/2024 08:59:19 04/17/20 24 04/16/2024 MRI, lumba r spine , w/o contr ast No observ ation record ed. [facility] [address] [place], [address], 04/18/2024 12:31:37 06/08/19 25 06/08/2024 XR, chest No observ ation record ed. [facility] [address] [place], [address], 06/08/2024 08:55:38 Result Notes None recorded. Problems Name Problem SNOMED Code Status Onset Date Resolution Date Notes Provider Name and Address Organization Details Recorded Time Diabetes mellitus 96645783 Active 2018 [facility] [place] [facility] 10:51:15 Liver finding 780024128 Active 2018 [facility] [place] [facility] 10:51:15 Hyperglycem ia due to type 2 diabetes mellitus 0447997937420 09 Active Amanda Amin [place], [place] [facility] 4 09:09:59 Type 2 diabetes mellitus in obese 22190670 Active Amanda Amin [place] [facility] 1 10:51:15 Bacteremia 4053991 Active Amanda Amin [place] [facility] 1 10:51:15 Gastroesoph ageal reflux disease 348353251 Active Amanda Amin [place] [facility] 1 10:51:15 Abscess 970688724 Active Amanda Amin [place] [facility] 1 10:51:15 Backache 219768649 Active [facility] [place] [facility] 1 10:51:15 Hepatic failure 01398477 Active [facility] [place] [facility] 1 10:51:15 Problem Notes None recorded. Procedures Surgical History Date Name Laterality Status Provider Name and Address Organization Details Recorded Time 6 colonoscopy completed Amanda Amin MA [place] [facility] 11/15/2021 15:39:15 Imaging Results Imaging Date Name Status LastModified by Organiz ation Details LastModified Time 02/23/2024 XR, abdomen completed [facility] [address] [place], [address], 02/24/2024 08:59:19 04/16/2024 MRI, lumbar spine, w/o contrast completed [facility] [address] [place], [address], 04/18/2024 12:31:37 06/08/2024 XR, chest completed [facility] [address] [place], [address], 06/08/2024 08:55:38 Procedure Notes None recorded. Medical Equipment None Reported. Allergies Allergen ID Allergen Name Allergen Category Reaction Reaction Severity Criticality Documentation Date Start Date Code Code System Note Provider Name and Address Organization Details Recorded Time 889055 Product containin g penicilli n (product) medicatio n Not available Not available Not available 12/16/2017 04889 8001 SNOMED Not Available Not Available Not Available 907504 Substance with sulfonami de structure and antibacte rial mechanism of action (substanc e) medicatio n Not available Not available Not available 12/16/2017 02706 8003 SNOMED Not Available Not Available Not Available 490952 Nexium medicatio n Not available Not available Not available 12/16/2017 12143 9 RxNorm Not Available Not Available Not Available 628714 erythromy roxana medicatio n Not available Not available Not available 12/16/2017 4053 RxNorm Not Available Not Available Not Available 944655 Iodinated contrast media (substanc e) medicatio n Not available Not available Not available 12/16/2017 18510 2004 SNOMED Not Available Not Available Not Available 844407 ciproflox acin medicatio n Not available Not available Not available 12/16/2017 2551 RxNorm Not Available Not Available Not Available 506108 Azactam medicatio n Not available Not available Not available 12/16/2017 97817 1 RxNorm Not Available Not Available Not Available 215169 aztreonam medicatio n Not available Not available Not available 12/16/2017 1272 RxNorm Not Available Not Available Not Available 185436 octreotid e Not available Not available Not available Not available 12/16/2017 7617 RxNorm Not Available Not Available Not Available 469548 duloxetin e medicatio n Not available Not available Not available 12/16/2017 32610 RxNorm Not Available Not Available Not Available 752328 oxycodone medicatio n other Not available Not [...] lable Lidocaine Viscous 2 % mucosal solution 06/28 completed Not Available Not Available Not Available ceftriaxone [...] completed Not Available Not Available Not Available MacroSolveTouch Ultra Test strips USE FOR TESTING BEFORE [...] triamcinolo ne acetonide 0.1 % topical ointment 06/28 completed Not Available Not Available Not Available buspirone [...] tablet TAKE ONE TABLET BY MOUTH DAILY 06/28 completed Not Available Not Available Not Available ergocalcife rol (vitamin D2) 1,250 mcg (50,000 unit) capsule TAKE 1 CAPSULE BY MOUTH WEEKLY FOR 12 WEEKS ONLY 05/28 completed Not Available Not Available Not Available albuterol sulfate HFA 90 mcg/actuati on aerosol inhaler INHALE 2 PUFFS BY MOUTH EVERY 4 HOURS NEEDED 06/28 completed Not Available Not Available Not Available ketoconazol e 2 % topical cream [...] Not Avai lable naproxen 500 mg tablet 06/28 completed Not Available Not Available Not Available metoclopram [...] Available Not Available pregabalin 150 mg capsule 300 at night active Not Available Not Available No t Available pregabalin 200 mg capsule once during the day active Not Available Not Available No t Available Hydrocodone 10 mg 4x a day [...] every day by topical route as needed. 06/28 completed Not Available Not Available Not Available rifaximin 550 mg tablet Take 1 tablet twice a day by oral route. 06/28 completed Not Available Not Available Not Available lidocaine 5 % topical ointment APPLY [...] INCREASE TO 1.5MG ONCE A WEEK DIRECTED 06/28 completed Not Available Not Available Not Available naloxone 4 mg/actuatio n nasal spray [...] DIRECTED 4 TIMES A DAY DXDX E11.9 2024 active Not Available Not Available Not Avai lable BD Insulin Syringe U-500 1/2 mL 31 [...] Updated DateTime 4 171.45 cm 34.6 kg/m2 594393. 69 g 96 % 96 % 108 /min 121 mm[Hg] 81 mm[Hg] Karina Alvarez MA [facility] 4 11:08:58 Date Recorded Body height Body mass index (BMI) Body weight Oxygen saturation Oxygen saturation in Arterial blood by Pulse oximetry Heart rate Systolic blood pressure Diastolic blood pressure Provider Name and Address Organization Details Last Updated DateTime 4 171.45 cm 34.9 kg/m2 238214. 28 g 95 % 95 % 94 /min 139 mm[Hg] 80 mm[Hg] Karina Alvarez MA [facility] 4 14:55:26 Date Recorded Body height Body mass index (BMI) Body weight Oxygen saturation Oxygen saturation in Arterial blood by Pulse oximetry Heart rate Systolic blood pressure Diastolic blood pressure Provider Name and Address Organization Details Last Updated DateTime 4 171.45 cm 35 kg/m2 770608. 47 g 97 % 97 % 97 /min 128 mm[Hg] 81 mm[Hg] Karina Alvarez MA [facility] 4 10:54:27 Date Recorded Body height Body mass index (BMI) Body weight Oxygen saturation Oxygen saturation in Arterial blood by Pulse oximetry Heart rate Systolic blood pressure Diastolic blood pressure Provider Name and Address Organization Details Last Updated DateTime 4 171.45 cm 34.5 kg/m2 103970. 9 g 95 % 95 % 102 /min 149 mm[Hg] 91 mm[Hg] Karina Alvarez MA [facility] 4 10:09:39 Date Recorded Body height Body mass index (BMI) Body weight Oxygen saturation Oxygen saturation in Arterial blood by Pulse oximetry Heart rate Systolic blood pressure Diastolic blood pressure Provider Name and Address Organization Details Last Updated DateTime 5 171.45 cm 33.9 kg/m2 57601.3 2 g 95 % 95 % 88 /min 120 mm[Hg] 88 mm[Hg] Amanda Amin MA [facility] 5 17:59:35 Social History Question Answer Notes LastModified by Organizat ion Details LastModified Time Tobacco Smoking Status Former Smoker Julia Guerrier MA [facility] 12/16/2017 12:02:47 What Is Your [...] Date Of Your Most Recent Tobacco Screening? 06/28/2024 Information not available 06/28/2024 What Is Your Relationship Status? Information not [...] Anxious, Or Unable To Sleep At Night)? [id number] [email or web address] Information not available 08/21/2021 Do You Use Any Illicit Or Recreational Drugs? No Information not available 07/25/2020 Do You Use Sunscreen Routinely? No Information not available 10/27/2022 Has Tobacco Cessation Counseling Been Provided? No Information not available 2020 On What Date Was Tobacco Cessation Counseling Provided? 06/28/2024 Information not available 06/28/2024 Do You Or Have You Ever Used [...] N Anemia N Heart Attack ([place]) N Anxiety Disorder Y Diabetes Y Muscle, [...] mcg/0.3 mL dose 12/08/2020 completed Not Available [facility] 10:49:05 COVID-19, mRNA, LNP-S, PF, 30 mcg/0.3 mL dose 12/29/2020 completed Not Available [facility] 10:49:05 Hep A-Hep B 09/10/2015 completed Amanda Amin MA [place], [place] - [facility] 07/20/2023 09:11:13 Past Encounters Encounter ID Performer Location Encounter Start Date Encounter Closed Date Diagnosis/Indication Diagnosis SNOMED-CT Code Diagnosis ICD10 Code Diagnosis Note [id number] Julia Guerrier MA [facility] [address] [place] [address] 12/16/2017 11:36:06 12/16/2017 12:52:59 Nonalcoholic steatohepatitis 227876197 K75.81 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 347361143 I85.10 Type 2 obdulio betes mellitus 50793484 E11.9 [id number] Janeth Pavon PA-C [facility] [address] [place] [address] 12/23/2017 11:30:06 12/23/2017 12:45:09 Diabetes mellitus 80779608 E11.69 Cholecystitis 35985883 K 80.01 End stage liver disease 956435552 K72.90 [id number] Janeth Pavon PA-C [facility] [address] [place] [address] 02/11/2018 15:41:09 02/11/2018 16:48:42 Generalized anxiety disorder 70420400 F41.1 Uncontroll ed type 2 diabetes mellitus 927311828 E11.65 [id number] TOM Kunz [address] [place] [address] 03/02/2018 15:31:55 03/02/2018 16:08:34 End stage liver disease 176437175 K72.00 Uncontroll ed type 2 diabetes mellitus 016853003 E11.65 [id number] [facility] [address] [place] [address] 05/13/2018 15:37:41 05/13/2018 17:17:50 End stage liver disease 873252090 K72.00 [id number] TOM Kunz [facility] [address] [place] [address] 05/25/2018 11:13:32 05/25/2018 11:43:34 End stage liver disease 626246577 K72.00 Dyspnea on exertion 6084 5006 R06.09 Tachycardia 9476710 R00. 0 On examina tion - deep seated pustules 827762554 L08.9 [id number] Janeth Pavon PA-C [facility] [address] [place] [address] 06/14/2018 10:19:40 06/14/2018 11:01:20 Diabetes mellitus 69354615 E11.69 End stage liver disease 471423582 K72.00 Lumbar radiculopathy 128 349555 M54.16 [id number] Janeth Pavon PA-C [facility] [address] [place] [address] 02/09/2019 14:30:46 02/09/2019 15:35:07 Diabetes mellitus 18608118 E11.69 Increased frequency of urination 061537858 R35.0 [id number] Janeth Pavon PA-C [facility] [address] [place] [address] 03/22/2019 15:44:00 03/22/2019 17:48:00 Anemia due to chronic blood loss 417855479 D50.0 Nonalcohol ic steatohepatitis 030512703 K75.81 Type 2 obdulio betes mellitus without complication 924527335 E11.9 Low back pain 618053079 M54.5 Increased frequency of urination 753518065 R35.0 Hepatic encephalopathy 84656367 K72.90 [id number] Janeth Pavon PA-C [facility] [address] [place] [address] 08/01/2019 11:23:53 08/01/2019 12:28:44 Cirrhosis of liver 90299857 K74.69 [id number] Janeth Pavon PA-C [facility] [address] [place] [address] 08/17/2019 09:24:17 08/24/2019 11:34:51 Diabetes mellitus 57453088 E11.69 Lumbar radiculopathy 128 595274 M54.16 [id number] Janeth Paovn PA-C [facility] [address] [place] [address] 08/31/2019 14:50:58 09/02/2019 14:48:06 Acute bronchitis with bronchospasm 55378720 J20.9 [id number] Janeth Pavon PA-C [facility] [address] [place] [address] 12/19/2019 09:34:48 12/19/2019 15:21:39 [id number] Janeth Pavon PA-C [facility] [address] [place] [address] 12/23/2019 09:37:23 12/23/2019 15:52:54 Diabetes mellitus 76625132 E11.69 Obstructiv e sleep apnea syndrome 13047462 G47.33 End stage liver disease 000172477 K72.00 Thoracic back pain 85990 8004 M54.6 [id number] Janeth Pavon PA-C [facility] [address] [place] [address] 01/25/2020 09:34:10 01/25/2020 15:21:39 Lumbar radiculopathy 506541492 M54.16 [id number] Janeth Pavon PA-C [facility] [address] [place] [address] 02/23/2020 09:42:16 02/23/2020 16:52:05 Diabetes mellitus 95765410 E11.69 Renal mass 633196424 N28 .89 Neoplasm of kidney 11283 0001 D49.230 [id number] Janeth Pavon PA-C [facility] [address] [place] [address] 06/13/2020 11:39:18 06/14/2020 10:53:35 Nonalcoholic steatohepatitis 510516155 K75.81 Uncontroll ed type 2 diabetes mellitus 191382883 E11.65 [id number] Janeth Pavon PA-C [facility] [address] [place] [address] 07/25/2020 11:21:27 07/25/2020 14:13:47 Long-term drug therapy 630281477 Z79.899 Gastroesop hageal reflux disease without esophagitis 647595315 K21.9 Hematochezia 667705860 K 92.1 Nausea and vomiting 1693 1999 R11.2 Pityriasis rosea 2377870 4 L42 Type 2 obdulio betes mellitus 70288629 E11.9 [id number] Janeth Pavon PA-C [facility] [address] [place] [address] 07/27/2020 10:05:37 07/31/2020 10:18:42 Uncontrolled type 2 diabetes mellitus 519274405 E11.65 [id number] Janeth Pavon PA-C [facility] [address] [place] [address] 2020 11:20:02 09/08/2020 12:42:46 Tinea corporis 60369037 B35.4 Abscess 685046960 L02.91 [id number] Janeth Pavon PA-C [facility] [address] [place] [address] 11/16/2020 10:47:40 11/16/2020 11:46:55 Exanthem due to herpes zoster 511509860 B02.8 [id number] Janeth Pavon PA-C [facility] [address] [place] [address] 06/26/2021 15:54:46 06/26/2021 17:00:08 Long-term drug therapy 036180053 Z79.899 Low back pain 632173809 M54.51 Body mass index 30+ - obesity 939817310 Z68.39 Screening for malignant neoplasm of prostate 211161850 Z12.5 [id number] Janeth Pavon PA-C [facility] [address] [place] [address] 08/21/2021 11:08:46 08/21/2021 12:35:42 Adult health examination 414394532 Z00.00 Backache 703364812 M54.9 [id number] Janeth Pavon PA-C [facility] [address] [place] [address] 11/15/2021 15:33:53 11/18/2021 10:03:54 Hyperglycemia due to type 2 diabetes mellitus 4150553483 12241 E11.65 Type 2 obdulio betes mellitus 22887430 E11.9 Morbid obesity 153109617 E66.01 End stage liver disease 250489854 K72.00 [id number] Janeth Pavon PA-C [facility] [address] [place] [address] 05/28/2022 16:19:55 05/28/2022 17:17:07 Uncontrolled type 2 diabetes mellitus 073129904 E11.65 Chronic back pain 980824 002 M54.05 Overweight 390124395 E66 .3 Urinary incontinence 165 149647 R32 Generalize d anxiety disorder 04695404 F41.1 Backache 592546452 M54.9 [id number] Janeth Pavon PA-C [facility] [address] [place] [address] 10/27/2022 14:34:16 10/28/2022 10:40:36 Long-term drug therapy 189840719 Z79.899 Lumbar radiculopathy 128 212324 M54.16 Persistent cough 5316605 02 R05.3 Daytime somnolence 83755 56630 00 R40.0 Type 2 obdulio betes mellitus 35984767 E11.9 Iron defic iency anemia 14007943 D50.8 [id number] Janeth Pavon PA-C [facility] [address] [place] [address] 12/29/2022 15:17:34 12/30/2022 09:55:18 Lumbar radiculopathy 162035118 M54.16 Overweight 889932822 E66 .3 [id number] Janeth Pavon PA-C [facility] [address] [place] [address] 02/24/2023 18:01:59 03/02/2023 15:11:10 Persistent cough 626455255 R05.3 Essential hypertension 87691859 I10 Overweight 580735534 E66 .3 [id number] Janeth Pavon PA-C [facility] [address] [place] [address] 05/14/2023 11:38:36 05/15/2023 11:58:34 Type 2 diabetes mellitus 13184280 E11.9 Mixed anxi ety and depressive disorder 878079690 F41.8 Overweight 940312851 E66 .3 [id number] Janeth Pavon PA-C [facility] [address] [place] [address] 06/04/2023 10:52:25 06/09/2023 14:14:44 Abdominal pain 05702562 R10.13 Cirrhosis of liver 98963 007 K74.69 Overweight 604170047 E66 .3 [id number] Janeth Pavon PA-C [facility] [address] [facility] [place] [address] 07/02/2023 12:08:49 07/03/2023 11:31:17 Type 2 diabetes mellitus 75570267 E11.9 Atypical chest pain 1025 46866 R07.89 Overweight 050015129 E66 .3 [id number] Janeth Pavon PA-C [facility] [address] [place] [address] 08/05/2023 15:58:27 08/21/2023 14:53:44 Uncontrolled type 2 diabetes mellitus 741061774 E11.65 Overweight 943067695 E66 .3 [id number] Janeth Pavon PA-C [facility] [address] [facility] [place] [address] 08/13/2023 14:55:22 08/20/2023 15:19:06 Lumbar radiculopathy 816345834 M54.16 [id number] KARINA BEARD [facility] [address] [facility] [place] [address] 09/17/2023 08:59:31 09/18/2023 13:42:26 Atopic dermatitis 59908042 L20.9 -Patient presentati on consistent with atopic dermatitis .-Patient reports rash has improved with triamcinol one use. Patient to continue triamcinol one for another 7 days BID PRN.-DICER MACHINE OPERATOR ordering eucerin lotion for patient to use daily PRN.-DICER MACHINE OPERATOR provided atopic dermatitis care instructio ns. Type 2 obdulio betes mellitus 00007880 E11.21 -Uncontrol led.-Last A1c: 12 (05/14/23)- Continue current therapy-Jamie werner would like referral to another endocrinol ogist and nutritioni st. DICER MACHINE OPERATOR to place orders.-DICER MACHINE OPERATOR discussed diet and lifestyle changes with the patient at length. DICER MACHINE OPERATOR provided numerous diabetes care instructio ns and discussed with the patient.-R ecommended diabetic diet-Educa manny to check feet daily [id number] Amanda Amin MA [facility] [address] [place] [address] 10/16/2023 11:23:31 10/17/2023 06:49:47 Long-term drug therapy 934673480 Z79.899 Diabetes mellitus 483080 09 E11.69 Overweight 987631635 E66 .3 [id number] Janeth Pavon PA-C [facility] [address] [place] [address] 01/14/2024 09:33:39 01/19/2024 12:05:45 Long-term drug therapy 748834903 Z79.899 Type 2 obdulio betes mellitus 21438194 E11.9 Uncontroll ed type 2 diabetes mellitus 599045123 E11.65 ER now Overweight 154819934 E66 .3 [id number] Janeth Pavon PA-C [facility] [address] [place] [address] 01/26/2024 10:49:29 02/03/2024 14:35:51 Cirrhosis of liver 17304662 K74.69 Type 2 obdulio betes mellitus 54547362 E11.9 Adult [facility] th examination 579334729 Z00.00 Overweight 391584920 E66 .3 [id number] Janeth Pavon PA-C [facility] [address] [place] [address] 03/03/2024 10:44:06 03/04/2024 13:36:40 Chronic low back pain 239507565 M54.59 Morbid obesity 611823505 E66.01 [id number] Janeth Pavon PA-C [facility] [address] [place] [address] 03/08/2024 14:46:39 03/09/2024 16:00:13 Seizure 41895433 G40.89 Uncontroll ed type 2 diabetes mellitus 201679108 E11.65 Dissociati ve convulsions 942804559 F44.5 Overweight 225416736 E66 .3 [id number] Janeth Pavon PA-C [facility] [address] [place] [address] 03/23/2024 10:36:19 03/28/2024 10:16:17 Lumbar radiculopathy 125319372 M54.16 Uncontroll ed type 2 diabetes mellitus 090672873 E11.65 Overweight 906884888 E66 .3 [id number] Janeth Pavon PA-C [facility] [address] [place] [address] 04/06/2024 09:53:53 04/06/2024 16:23:24 Dysuria 85022766 R30.0 Uncontroll ed type 2 diabetes mellitus 872700208 E11.65 Generalize d anxiety disorder 92165173 F41.1 Overweight 080540705 E66 .3 [id number] Janeth Pavon PA-C [facility] [address] [place] [address] 06/28/2024 17:38:46 06/29/2024 10:11:55 Hemoptysis 13807445 R04.2 Functional gait abnormality 3824570358 9103 R26.0 Health Concerns Section Related Observation LastModified by Organization Detai ls LastModified Time None Recorded Concern Status LastModified by Organization Details LastModified Time None Recorded Advance Directives Directive None Recorded Payers Encounter Date Sequence Insurance Name Policy Number Policy Cordero Covered Member ID Cordero Member ID Guarantor Name 03/03/2024 1 [employer] [place] ON [place] AFTER 2020 (MEDICAID REPLACEMENT - HMO) Camilo Curry [id number] Camilo Curry 03/08/2024 1 [employer] [place]PLAC[place] - [place]MO) Camilo Curry [id number] Camilo Curry 03/23/2024 1 [employer] [place]AC[place] - [place]MO) Camilo Curry [id number] Camilo Curry 04/06/2024 1 [employer] [place] - [place]MO) Camilo Curry [id number] Camilo Curry 06/28/2024 1 [employer] [place] - [place]MO) Camilo Curry [id number] Camilo Curry Notes Date Note Type Note Provider Name and Address Organization Details Recorded Time 03/03/2024 text/html 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 and wants a 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 in order to facilitate ADL such as standing ambulating and hygiene and meal prep Janeth Pavon PA-C Attn: Accounting, [address] [facility], [place], [address], [facility] 03/03/2024 11:28:09 03/08/2024 text/html first time seizu re thursday night..says approx an hour?...was found in yard..refused EMS..cant get into psych until end of april...no xanax for over a month...reports BS was off meter high..reports no post ictal Janeth Pavon PA-C Attn: Accounting, [address] [facility], [place], [address], [facility] 03/08/2024 15:28:41 03/23/2024 text/html injured his lowe r back moving furniture...needs MRI...xray and CT spine were negative...phys therapy was ineffective...was just in ER Janeth Pavon PA-C Attn: Accounting, [address] [facility], [place], [address], [facility] 03/23/2024 11:18:37 04/06/2024 text/html has burning urination for a week... every hour frequency...says he has been drinking nikhil justice vs nausea...also needs something for sedation for MRI Janeth Pavon PA-C Attn: Accounting, [address] [place], [address], [facility] 04/06/2024 10:29:01 06/28/2024 text/html was in CHF and pneumonia at [facility]..now is also vomiting brown like blood on occasion..hx of varices..also starting to lose balance again and also having pain around back to mid line..his balance feels like he leans over progressively as he walks and loses his balance... Janeth Pavon PA-C Attn: Accounting, [address] [place], [address], [place] [facility] 06/28/2024 18:35:45
--- OUTSIDE RECORDS SUMMARY | 2024-07-21 07:36 | XMS_ITS | Clinical Summary ---
Author Organization [facility] Address [address] [place] [address] Phone Care Team Providers Care [employer] Consultant Name Role Phone Librado Braydon NEAL Primary Care Provider [phone] Vikram Mora MD Unavailable Riddhi Bello APRN, CORRUGATOR OPERATOR Unavailable Allergies Active Allergy Reactions Criticality Noted [...] as needed. 3 Active ergocalciferol (VITAMIN D) 80677 UNIT Capsule Take 50,000 Units by mouth. Active Insulin Pen Needle (B-D ULTRAFINE III SHORT PEN) 31G X 8 MM Misc 1 Active Insulin Pen Needle (B-D ULTRAFINE III SHORT PEN) 31G X 8 MM Misc 1 Each by Subcutaneous route. 1 Active Insulin Pen Needle (Pen [place]) 32G X 4 MM Misc Inject 3 [...] 10 Tablet 4 Active Continuous Blood Gluc Exchange Architect (Dexcom G7 Exchange Architect) Device Check blood glucose before each meal and at bedtime 1 Each 4 Active HYDROcodone-bella taminophen ([place]) 10-325 MG Tablet Take 1 Tablet by mouth every 6 hours as needed. Active Trulicity 0.75 MG/0.5ML Solution Pen-injector injection 0.75 mg by Subcutaneous route once a week. 4 Active pregabalin (LYRICA) 200 MG Capsule Take 200 mg by mouth 2 times daily. 300 mg at night Active Enulose 10 GM/15ML Solution Take 30 mL by mouth 4 times daily. 4 Active famotidine (PEPCID) 20 MG Tablet Take 1 Tablet by mouth 2 times daily. Active Continuous Glucose Sensor (Dexcom G7 Sensor) Misc CHANGE SENSOR EVERY 10 DAYS 9 Each 4 Active cyclobenzaprine (FLEXERIL) 10 MG Tablet Take 10 mg by mouth 3 times daily as needed. Active Insulin NPH Human, Isophane, (HUMULIN N SC) by Subcutaneous route. Active INSULIN REGULAR HUMAN IJ by Injection route. Patient reported Insulin Regular U-500, patient takes 200 units TID Active Active Problems Problem Noted Date Diagnosed [...] Date Type Department Care Team Description 06/30/2024 Nurse Triage [facility] - [facility] [address] [place] [address] Riddhi Bello APRN, CORRUGATOR OPERATOR Blood in Vomit from Last 3 Months Immunizations Immunization Administration [...] on file Legal Sex Male 10:58 AM HEALTH CARE TECHNICIAN Gender Identity Not on file Sexual Orientation Not on file Last Filed Vital Signs Vital Sign Reading Time Taken Comments Blood Pressure 152/82 01/07/2024 8:47 AM CDT Pulse 81 01/07/2024 8:47 AM CDT Temperature 37.1 C (98.7 F) 01/07/2024 8:47 AM CDT Respiratory Rate 14 01/07/2024 8:47 AM CDT Oxygen Saturation 97% 01/07/2024 8:47 AM CDT Inhaled Oxygen Concentration - - Weight 99.9 kg (220 lb 4.8 oz) 01/07/2024 8:47 A M CDT Height 170.2 cm (5' 7 ) 01/07/2024 8:47 AM CDT Body Mass Index 34.5 01/07/2024 8:47 AM CDT Plan of Treatment Upcoming Encounters Date Type Department Care Team (Late st Contact Info) Description 10/31/2024 10:30 AM CDT Office Visit [facility] - Neurology [facility] [address] [place] [id number] Andrea Hawkins MD [address] [place] [address] Health Maintenance Due Date Last Done Comments [...] Immunization (#1) 2024 SARS-COV-2 Immunization (3 - season) 2024 12/29/2020, 12/08/2020 Diabetes: Foot Exam 06/01/2024 06/01/2023 Diabetes: Nephropathy Screening 11/12/2024 11/13/2023, 05/29/2023, 05/20/2023, Additional history exists Diabetes: Hemoglobin A1c 12/07/2024 02//2 025, 05/31/2024, 11/23/2023, Additional history exists Colonoscopy 03/24/2028 03/24/2023, 12/02, [...] W/ ESTIMATED GLUCOSE STAT 05/20/2023 10:44 AM HEALTH CARE TECHNICIAN from Last 3 Months or Most Recently Relevant to Health Maintenance Results * (ABNORMAL) CMP (Comprehensive Metabolic Panel) (11/13/2023 6:40 PM CDT) SODIUM 139 136 - 145 mmol/L 11/13/2023 7:25 PM CDT [facility] POTASSIUM 3.7 3.5 - 5.1 mmol/L 11/13/2023 7:25 PM CDT [facility] CHLORIDE 105 98 - 107 mmol/L 11/13/2023 7:25 PM CDT [facility] CO2, VENOUS 24 22 - 30 mmol/L 11/13/2023 7:25 PM CDT [facility] ANION GAP 13.7 <18.0 mmol/L 11/13/2023 7:25 PM CDT [facility] GLUCOSE 188(H) 70 - 99 mg/dL 11/13/2023 7:25 PM CDT [facility] BUN 11 8 - 26 mg/dL 11/13/2023 7:25 PM CDT [facility] CREATININE, BLOOD 0.84 0.70 - 1.30 mg/dL 11/13/2023 7:25 PM CDT [facility] BUN/CREATININE RATIO 13 12 - 20 ratio 11/13/2023 7:25 PM CDT [facility] TOTAL PROTEIN 7.3 6.3 - 8.2 g/dL 11/13/2023 7:25 PM CDT [facility] ALBUMIN 3.9 3.5 - 5.0 g/dL 11/13/2023 7:25 PM CDT [facility] A/G RATIO 1.1 1.0 - 2.2 11/13/2023 7:25 PM CDT [facility] CALCIUM 9.4 8.7 - 10.5 mg/dL 11/13/2023 7:25 PM CDT [facility] T BILI 3.6(H) 0.2 - 1.2 mg/dL 11/13/2023 7:25 PM CDT [facility] SGOT (AST) 27 5 - 34 U/L 11/13/2023 7:25 PM CDT [facility] SGPT (ALT) 17 0 - 55 U/L 11/13/2023 7:25 PM CDT [facility] ALKALINE PHOSPHATASE 90 40 - 150 U/L 11/13/2023 7:25 PM CDT [facility] GFR, ESTIMATED >60 >=60 11/13/2023 7:25 PM CDT [facility] Comment: Creatinine Clearance is the preferred criteria for selecting drug dose adjustments in renally impaired patients. The GFR is provided as additional pertinent clinical information. GFR is reported in mL/min/1.73 sq m. Calculation based on the Chronic Kidney Disease Epidemiology Collaboration (CKD- EPI) equation refit without adjustment for race. GFR, EST. >60 >=60 024 7:25 PM CDT [facility] GFR, EST. NONAFRICAN >60 >=60 11/13/2023 7:25 PM CDT [facility] Blood Venipuncture / Unknown 11/13/2023 6:40 PM CDT 11/13/2023 7:00 PM CDT us Lul Junior DO CHEMISTRY ORDERABLES Fi nal Result [facility] [address] [place] [address] * (ABNORMAL) Hemoglobin A1C (05/20/2023 10:44 AM HEALTH CARE TECHNICIAN) HGB-A1C 11.6(H) 4.0 - 6.0 % 05/20/2023 12:30 PM HEALTH CARE TECHNICIAN [facility] Est Average Glucose 286.2 mg/dL 05/20/2023 12:30 PM HEALTH CARE TECHNICIAN [facility] Blood Venipuncture / Unknown 05/20/2023 10:44 AM HEALTH CARE TECHNICIAN 05/20/2023 11:01 AM HEALTH CARE TECHNICIAN Narrative [facility] - 05/20/2023 12:30 PM HEALTH CARE TECHNICIAN HEMOGLOBIN A1C: DIABETIC PATIENTS: WELL-CONTROLLED: 6.2 - 7.0 INTERMEDIATE WELL-CONTROLLED: 7.0 - 9.0 POORLY-CONTROLLED: >9.0 Felicitas Luz APRN, CORRUGATOR OPERATOR CHEMISTRY ORDERABLES Final Result Performing Organization Address City/[facility] Co de Phone Number [facility] [address] [place] [address] from Last 3 Months or Most Recently Relevant to Health Maintenance Insurance [facility]ID [facility] [address] [place] [address] Care Teams [employer] Consultant Relationship Specialty Start Date End Date Braydon Pavon, [address] [place] [address] PCP - General Physician Farm General Manager 06/22/18 Vikram Mora MD [address] [id number] Consulting Physician Endocrinology 05/21/23 Riddhi Bello APRN, CORRUGATOR OPERATOR [address] [place] [address] Nurse Practitioner Advanced Practice Nurse 02/10/23
--- OUTSIDE RECORDS SUMMARY | 2024-07-21 07:36 | XMS_ITS | Clinical Summary ---
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 This disclosure is being madepursuant to the Care Everywhere program and may not contain all information available regarding this patient. Last updated 18.[facility] Allergies Active Allergy Reactions Criticality Noted Date [...] as directed 100 Each 3 06/07/2018 Active INSULIN SYRINGE/NEEDLE U-500 31G X 6MM 0.5 ML (BD INSULIN SYRINGE U-500) 31G X 6MM 0.5 ML MISC Use 1 syringe 4 times daily - before meals & nightly 100 Each 3 12/08/2018 Active Additional Information Patient taking differently: 200 UnitsDoes not apply3 TIMES DAILY WITH MEALS, 0.5ML = 200 UNITS TID WC - CONFIRMED WITH [facility] [phone], Reason: Provider adjusted, Reported on 06/09/2024 blood glucose (TRUE METRIX BLOOD GLUCOSE TEST) test strip Use 1 strip 3 times daily 100 strip 11 12/08/2018 Active lactulose (CHRONULAC) 10 GM/15ML solutionIndicatio ns: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) Take 30 mL by mouth 4 times daily 1892 mL 3 01/11/2019 Active famotidine (Pepcid) 20 MG tablet 05/20/2023 Active polyethylene glycol 3350 (Miralax) 17 GM/SCOOP powder Take 17 (seventeen) g by mouth once daily as needed Active metFORMIN (Glucophage) 500 MG tablet Take 1 (one) tablet by mouth 2 times daily with morning and evening meal Active ondansetron, disintegrating, (Zofran ODT) 4 MG tablet Take 1 (one) tablet by mouth every 6 hours as needed for Nausea/Vomiting Allow tablet to dissolve on the tongue Active HYDROcodone-aceta minophen ([place]) 10-325 MG tablet Take 1 (one) tablet by mouth every 6 hours as needed for Pain Active pregabalin (Lyrica) 100 MG capsule Take 2 (two) capsules by mouth 2 times daily Patient takes 200mg every morning and 300mg every evening Active oseltamivir (Tamiflu) 75 MG capsule Take 1 (one) capsule by mouth 2 times daily 7 capsule 06/10/2024 Active Insulin Regular Human (HUMULIN R U-500 [place]) Inject 200 Units subcutaneously 3 times daily with meals Active Active Problems Problem Noted Date Diagnosed Date Acute congestive heart failu re, unspecified heart failure type 06/08/2024 Influenza A 06/08/2024 Elevated troponin 06/08/2024 Biliary colic 07/21/2018 Gallstones 07/21/2018 Hypertension 07/21/2018 [...] Encounters Date Type Department Care Team Description 06/08/2024 3:27 PM PATIENT ADVOCATE - 06/10/2024 3:30 PM PATIENT ADVOCATE Hospital Encounter [facility] 6N Telemetry [address] [place] [address] Louie Hi MD Fatima, Noor E, MD Chilakala, Aruna, MD Hospitalist Discharge Disposition: Home or Self Care 06/08/2024 Travel 05/18/2024 Travel from Last 3 Months Family [...] Date Smoking Tobacco: Former Cigarettes 1 15 985 - 1999 Smokeless Tobacco: Never Tobacco Cessation:Counseling Given: Not Answered Alcohol Use Standard Drinks/Week Comments No 0 (1 standard drink = 0.6 oz pur e alcohol) AUDIT-C Answer Date Recorded Q1: How often do you have a drink containing alcohol? Never 06/08/2024 Q2: How many drinks containi ng alcohol do you have on a typical day when you are drinking? Patient does not drink Q3: How often do you have si x or more drinks on one occasion? Never 06/08/2024 Overall Financial Resource Strain (CARDIA) Answe r Date Recorded How hard is it for you to pa y for the very basics like food, housing, medical care, and heating? Not very hard 06/08/2024 [facility] - Occupational Stress Questionnaire Answer Date Recorded Do you feel stress - tense, restless, nervous, or anxious, or unable to sleep at night because your mind is troubled all the time - these days? Not at all 06/08/2024 Hunger Vital Sign Answer Date Recorded Within the past 12 months, y ou worried that your food would run out before you got the money to buy more. Never true 06/08/19 25 Within the past 12 months, t he food you bought just didn't last and you didn't have money to get more. Never true 06/08/2024 PRAPARE - Transportation Answer Date Re corded In the past 12 months, has l ack of transportation kept you from medical appointments or from getting medications? No 09/2024 In the past 12 months, has l ack of transportation kept you from meetings, work, or from getting things needed for daily living? No 06/08/2024 Housing Stability Vital Sign Answer Alex e Recorded In the last 12 months, was t here a time when you were not able to pay the mortgage or rent on time? No 06/08/2024 In the past 12 months, how m any times have you moved where you were living? 1 06/08/2024 At any time in the past 12 m [facility], were you homeless or living in a fdc (including now)? No 06/08/2024 Sex and Gender Information Value Date Recorded Sex Assigned at Not on file Gender Identity Not on file Sexual Orientation Not on file Last Filed Vital Signs Vital Sign Reading Time Taken Comments Blood Pressure 110/69 06/10/2024 3:45 PM PATIENT ADVOCATE Pulse 81 06/10/2024 3:45 PM PATIENT ADVOCATE Temperature 36.8 C (98.2 F) 06/10/2024 3:45 PM PATIENT ADVOCATE Respiratory Rate 19 06/10/2024 3:45 PM PATIENT ADVOCATE Oxygen Saturation 94% 06/10/2024 3:45 PM PATIENT ADVOCATE Inhaled Oxygen Concentration - - Weight 99.8 kg (220 lb) 06/08/2024 3:47 PM PATIENT ADVOCATE Height 170.2 cm (5' 7 ) 06/08/2024 3:47 PM PATIENT ADVOCATE Body Mass Index 34.46 06/08/2024 3:47 PM PATIENT ADVOCATE Plan of Treatment Health Maintenance Due Date [...] of 2) 2020 COVID-19 VACCINE (3 - season) 2024 12/29/2020, 12/08/2020 INFLUENZA VACCINE (#1) 2024 DEPRESSION SCREENING 05/04/2024 DIABETES-HGB A1C 12/07/2024 06/09/2024, , 11/23/2023, Additional history exists DIABETES - URINE PROTEIN SCREENING 05/31/2025 05/31/2024 DIABETES-SERUM CREATININE 06/10/20252024, 06/09/2024, 06/08/2024, Additional history exists COLONOSCOPY - COLON CA SCREENING 12/17/2030 12/17/2020 Colorectal Cancer Screening 12/17/2030 HIB VACCINE Aged Out No longer eligi ble based on patient's age to complete this topic HPV VACCINE Aged Out No longer eligi ble based on patient's age to complete this topic MENINGOCOCCAL (Group B) VACCINE SHARED DECISION-MAKING Aged Out No longer eligible based on patient's age to complete this topic MENINGOCOCCAL GROUPS A/C/Y/W VACCINE Aged Out No longer eligible based [...] Name Priority Date/Time Associated Diagnosis Comments CARDIAC RHYTHM STRIP ORDER 06/13/2024 10:53 PM PATIENT ADVOCATE ECHO COMPLETE W CONTRAST Routine 06/10/2024 1:18 PM PATIENT ADVOCATE Acute congestive heart failure, unspecified heart failure type GLUCOSE - POINT OF CARE Routine 06/10/2024 12:48 PM PATIENT ADVOCATE GLUCOSE - POINT OF CARE Routine 06/10/2024 7:58 AM PATIENT ADVOCATE GLUCOSE - POINT OF CARE Routine 06/10/2024 7:14 AM PATIENT ADVOCATE GLUCOSE - POINT OF CARE Routine 06/10/2024 6:41 AM PATIENT ADVOCATE BASIC METABOLIC PANEL (CALCIUM TOTAL) AM Draw 06/10/2024 4:45 AM PATIENT ADVOCATE CBC W/O DIFFERENTIAL AM Draw 06/10/2024 4:45 AM PATIENT ADVOCATE GLUCOSE - POINT OF CARE Routine 06/09/2024 9:38 PM PATIENT ADVOCATE GLUCOSE - POINT OF CARE Routine 06/09/2024 5:17 PM PATIENT ADVOCATE GLUCOSE - POINT OF CARE Routine 06/09/2024 12:40 PM PATIENT ADVOCATE PT EVAL AND TREAT Routine 06/09/2024 12: 04 PM PATIENT ADVOCATE GLUCOSE - POINT OF CARE Routine 06/09/2024 7:48 AM PATIENT ADVOCATE GLUCOSE - POINT OF CARE Routine 06/09/2024 6:07 AM PATIENT ADVOCATE HEMOGLOBIN A1C Routine 06/09/2024 1:59 AM PATIENT ADVOCATE CBC W/O DIFFERENTIAL Routine 06/09/2024 1:59 AM PATIENT ADVOCATE COMPREHENSIVE METABOLIC PANEL Routine 06/09/2024 1:59 AM PATIENT ADVOCATE LIPID PROFILE Routine 06/09/2024 1:59 AM PATIENT ADVOCATE MAGNESIUM BLOOD Routine 06/09/2024 1:59 AM PATIENT ADVOCATE PHOSPHORUS BLOOD Routine 06/09/2024 1:59 AM PATIENT ADVOCATE TSH REFLEX FREE T4 Routine 06/09/2024 1: 59 AM PATIENT ADVOCATE GLUCOSE - POINT OF CARE Routine 06/08/2024 8:59 PM PATIENT ADVOCATE XR CHEST 1VW PORTABLE Routine 06/08/2024 5:04 PM PATIENT ADVOCATE Elevated troponin B-TYPE NATRIURETIC PEPTIDE STAT 06/08/2024 4:39 PM PATIENT ADVOCATE MAGNESIUM BLOOD STAT 06/08/2024 4:39 PM PATIENT ADVOCATE TROPONIN-I HIGH SENSITIVE STAT 06/08/2024 4:39 PM PATIENT ADVOCATE COMPREHENSIVE METABOLIC PANEL STAT 06/08/2024 4:39 PM PATIENT ADVOCATE CBC W AUTO DIFFERENTIAL STAT 06/08/2024 4:39 PM PATIENT ADVOCATE GLUCOSE - POINT OF CARE Routine 06/08/2024 3:34 PM PATIENT ADVOCATE from Last 3 Months Results * CARDIAC RHYTHM STRIP ORDER (06/13/2024 10:53 PM PATIENT ADVOCATE) Narrative 06/13/2024 10:53 PM PATIENT ADVOCATE Ordered by an unspecified provider. Scanned Document CARDIAC SERVICES ORD ERABLES * ECHO COMPLETE W CONTRAST (06/10/2024 1:18 PM PATIENT ADVOCATE) LA vol index 0.022 l/m SSM CV FUJI PACS Dimensionless Index 0.636 unitless SSM CV FUJI PACS Myocardial strain charge 2 unitless SSM CV FUJI PACS IVSd 2D 1.086 cm SSM CV FUJ I PACS LVIDd 3.69 cm SSM CV FUJ I PACS LVOT diam 1.957 cm SSM CV FUJ I PACS LVPWd 1.174 cm SSM CV FUJ I PACS LVOT pk mohit 108.168 cm/s SSM CV F UJI PACS LVOT VTI 21.723 cm SSM CV FUJ I PACS LA size 4.37 cm SSM CV FUJ I PACS LA vol BP 47.789 ml SSM CV FUJ I PACS RA area 20.685 cm SSM CV FUJI PACS AV mn grad 7.684 mmHg SSM CV FU JI PACS AV pk mohit 191.693 cm/s SSM CV FUJ I PACS AV VTI 34.158 cm SSM CV FUJ I PACS MV A pk mohit 75.695 cm/s SSM CV F UJI PACS MV E pk mohit 80.67 cm/s SSM CV F UJI PACS MV E' lateral mohit 8.496 cm/s SS M CV FUJI PACS PV pk mohit 104.184 cm/s SSM CV FUJ I PACS TAPSE 2.101 cm SSM CV FUJ I PACS TR pk mohit 380.726 cm/s SSM CV FUJ I PACS Anatomical Region Laterality Modality Ultrasound 06/10/2024 9:00 AM PATIENT ADVOCATE Narrative 06/10/2024 1:53 PM PATIENT ADVOCATE Summary * The left ventricle is normal in size with normal systolic function and an estimated ejection fraction of 55-60% by visual estimate. Left ventricular wall motion is normal. * The left ventricular diastolic function is indeterminate. * Right ventricle is moderately dilated with mildly reduced systolic function. * There is mild mitral valve regurgitation. * There is mild tricuspid valve regurgitation. * The pulmonary artery systolic pressure is moderately elevated, 50 mmHg. * There is a small pericardial effusion. Patient Info Name: Camilo Curry Age: 53 years : 1970 Gender: Male Ht: 67 in Wt: 220 lb BSA: 2.21 m2 HR: 74 bpm BP: 103 / 62 mmHg Exam Date: 06/10/2024 9:00 AM Patient Status: I/P Study Site: [facility] Primary Location: [facility] EStudy Info Exam Type: ECHO COMPLETE W CONTRAST Indications I50.9 - Acute congestive heart failure, unspecified heart failure type (HCC) Procedure(s) * A complete 2D, color Doppler, spectral Doppler and M-Mode transthoracic echocardiogram was performed with Definity. Staff Referring Physician: López Yeager Ordering Provider: López Yeager Attending Physician: López Yeager Chief Information Security Officer: Raven Harrison Left Ventricle The left ventricle is normal in size. Left ventricular systolic function is normal with an estimated ejection fraction of 55-60% by visual estimate. The left ventricular mass is normal. Left ventricular segmental wall motion is normal. The left ventricular diastolic function is indeterminate. Right Ventricle The right ventricle is moderately dilated. Right ventricular systolic function is mildly reduced. Left Atrium The left atrium is normal in size with a left atrial volume index of 22 ml/m2 by BP MOD. Right Atrium The right atrium is dilated. Atrial Septum Intact interatrial septum visualized by 2D and color Doppler imaging. Aortic Valve The aortic valve is trileaflet. There is no aortic valve stenosis. There is no aortic valve regurgitation. Pulmonic Valve The pulmonic valve is normal. There is no pulmonic valve stenosis. There is no pulmonic regurgitation. Mitral Valve The mitral valve is normal. There is no mitral valve stenosis. There is mild mitral valve regurgitation. Tricuspid Valve The tricuspid valve is normal. There is mild tricuspid valve regurgitation. The pulmonary artery systolic pressure is moderately elevated, 50 mmHg. Inferior Vena Cava The inferior vena cava is normal in size (< 2.1 cm). Pericardium/Pleural There is a small pericardial effusion. Aorta The aortic root at the sinus of Valsalva is normal in size. The ascending aorta is normal in size. Measurements Left Ventricular Outflow Tract Name Value Normal LVOT 2D LVOT Diameter 2.0 cm LVOT Area 3.0 cm2 LVOT Doppler LVOT Peak Velocity 1.1 m/s LVOT Peak Gradient 5 mmHg LVOT Mean Velocity 74.61 cm/s LVOT Mean Gradient 2 mmHg LVOT VTI 21.7 cm LVOT VTI/AV VTI Ratio 0.6 LVOT Stroke Volume 65 ml LVOT Stroke Volume Index 30 ml/m2 35-58 LVOT CO 4.9 l/min LVOT CI 2.2 l/min/m2 Pulmonic Valve Name Value Normal PV Doppler PV Peak Velocity 1.0 m/s PV Peak Gradient 3 mmHg Mitral Valve Name Value Normal MV Doppler MV PHT 87 ms MV Area (PHT) 2.53 cm2 4.00-5.00 MV Diastolic Function MV E Peak Velocity 0.8 m/sec MV A Peak Velocity 0.8 m/sec MV E/A 1.1 MV Decel Time (PW) 300 ms MV Annular TDI MV Septal e' Velocity 7 cm/s >=8 MV E/e' (Septal) 11 <=8 MV Lateral e' Velocity 8 cm/s >=10 MV E/e' (Lateral) 9 <=8 MV e' Average 8 cm/s MV E/e' (Average) 10 Tricuspid Valve Name Value Normal TV Regurgitation Doppler TR Peak Velocity 3.8 m/s TR Peak Gradient 58 mmHg Estimated PAP/RSVP PA Systolic Pressure 50 mmHg <35 TV Annular TDI TV Lateral Veronika s' Velocity 12 cm/s 10-19 Aorta Name Value Normal Ascending Aorta Ao Root Diameter (MM) 2.4 cm Ao Root Diam Index (MM) 1.1 cm/m2 Aortic Valve Name Value Normal AV Doppler AV Peak Velocity 1.92 m/s AV Peak Gradient 15 mmHg AV Mean Gradient 8 mmHg AV VTI 34 cm AV Area (Cont Eq VTI) 1.91 cm2 >=2.00 AV Area (Cont Eq Mohit) 1.70 cm2 AV DI (VTI) 0.64 AV DI (Mohit) 0.56 AV Regurgitation 2D LVOT Area 3.01 cm2 Ventricles Name Value Normal LV Dimensions 2D/MM IVS Diastolic Thickness (2D) 1.1 cm 0.6-1.0 LVID Diastole (2D) 3.7 cm 4.2-5.8 LVPW Diastolic Thickness (2D) 1.2 cm 0.6-1.0 LV Mass (2D Cubed) 134 g 88-224 LV Mass Index (2D Cubed) 61 g/m2 49-115 Relative Wall Thickness (2D) 0.64 <=0.42 RV Dimensions 2D/MM TAPSE 2.1 cm >=1.7 Atria Name Value Normal LA Dimensions LA Dimension (2D) 4.4 cm 3.0-4.1 LA Dimen Index (2D) 2.0 cm/m2 LA Dimension (MM) 4.2 cm 3.0-4.1 LA Volume (BP MOD) 48 ml LA Volume Index (BP MOD) 22 ml/m2 16-34 RA Dimensions RA Area (4C) 21 cm2 <=18 RA Area (4C) Index 9 cm2/m2 RA ESV (4C MOD) 67 ml 18-32 RA ESV Index (4C MOD) 31 ml/m2 16-34 Report Signatures Finalized by Susan Rivera on 06/10/2024 01:53 PM Procedure Note Susan Rivera MD - 06/10/2024 Summary * The left ventricle is normal in size with normal systolic function andan estimated ejection fraction of 55-60% by visual estimate. Leftventricular wall motion is normal. * The left ventricular diastolic function is indeterminate. * Right ventricle is moderately dilated with mildly reduced systolic function. * There is mild mitral valve regurgitation. * There is mild tricuspid valve regurgitation. * The pulmonary artery systolic pressure is moderately elevated, 50mmHg. * There is a small pericardial effusion. Patient Info Name: Camilo Curry Age: 53 years : 1970 Gender: Male Ht: 67 in Wt: 220 lb BSA: 2.21 m2 HR: 74 bpm BP: 103 / 62 mmHg Exam Date: 06/10/2024 9:00 AM Patient Status: I/P Study Site: [facility] Primary Location: [facility] EStudy Info Exam Type: ECHO COMPLETE W CONTRAST Indications I50.9 - Acute congestive heart failure, unspecified heart failuretype (HCC) Procedure(s) * A complete 2D, color Doppler, spectral Doppler and M-Modetransthoracic echocardiogram was performed with Definity. Staff Referring Physician: López Yeager Ordering Provider: López Yeager Attending Physician: López Yeager Chief Information Security Officer: Raven Harrison Left Ventricle The left ventricle is normal in size. Left ventricular systolic functionis normal with an estimated ejection fraction of 55-60% by visual estimate.The left ventricular mass is normal. Left ventricular segmental wall motionis normal. The left ventricular diastolic function is indeterminate. Right Ventricle The right ventricle is moderately dilated. Right ventricular systolic function is mildly reduced. Left Atrium The left atrium is normal in size with a left atrial volume index of22 ml/m2 by BP MOD. Right Atrium The right atrium is dilated. Atrial Septum Intact interatrial septum visualized by 2D and color Doppler imaging. Aortic Valve The aortic valve is trileaflet. There is no aortic valve stenosis. Thereis no aortic valve regurgitation. Pulmonic Valve The pulmonic valve is normal. There is no pulmonic valve stenosis. Thereis no pulmonic regurgitation. Mitral Valve The mitral valve is normal. There is no mitral valve stenosis. There ismild mitral valve regurgitation. Tricuspid Valve The tricuspid valve is normal. There is mild tricuspid valveregurgitation. The pulmonary artery systolic pressure is moderately elevated, 50 mmHg. Inferior Vena Cava The inferior vena cava is normal in size (< 2.1 cm). Pericardium/Pleural There is a small pericardial effusion. Aorta The aortic root at the sinus of Valsalva is normal in size. Theascending aorta is normal in size. Measurements Left Ventricular Outflow Tract Name Value Normal LVOT 2D LVOT Diameter 2.0 cm LVOT Area 3.0 cm2 LVOT Doppler LVOT Peak Velocity 1.1 m/s LVOT Peak Gradient 5 mmHg LVOT Mean Velocity 74.61 cm/s LVOT Mean Gradient 2 mmHg LVOT VTI 21.7 cm LVOT VTI/AV VTI Ratio 0.6 LVOT Stroke Volume 65 ml LVOT Stroke Volume Index 30 ml/m2 35-58 LVOT CO 4.9 l/min LVOT CI 2.2 l/min/m2 Pulmonic Valve Name Value Normal PV Doppler PV Peak Velocity 1.0 m/s PV Peak Gradient 3 mmHg Mitral Valve Name Value Normal MV Doppler MV PHT 87 ms MV Area (PHT) 2.53 cm2 4.00-5.00 MV Diastolic Function MV E Peak Velocity 0.8 m/sec MV A Peak Velocity 0.8 m/sec MV E/A 1.1 MV Decel Time (PW) 300 ms MV Annular TDI MV Septal e' Velocity 7 cm/s >=8 MV E/e' (Septal) 11 <=8 MV Lateral e' Velocity 8 cm/s >=10 MV E/e' (Lateral) 9 <=8 MV e' Average 8 cm/s MV E/e' (Average) 10 Tricuspid Valve Name Value Normal TV Regurgitation Doppler TR Peak Velocity 3.8 m/s TR Peak Gradient 58 mmHg Estimated PAP/RSVP PA Systolic Pressure 50 mmHg <35 TV Annular TDI TV Lateral Veronika s' Velocity 12 cm/s 10-19 Aorta Name Value Normal Ascending Aorta Ao Root Diameter (MM) 2.4 cm Ao Root Diam Index (MM) 1.1 cm/m2 Aortic Valve Name Value Normal AV Doppler AV Peak Velocity 1.92 m/s AV Peak Gradient 15 mmHg AV Mean Gradient 8 mmHg AV VTI 34 cm AV Area (Cont Eq VTI) 1.91 cm2 >=2.00 AV Area (Cont Eq Mohit) 1.70 cm2 AV DI (VTI) 0.64 AV DI (Mohit) 0.56 AV Regurgitation 2D LVOT Area 3.01 cm2 Ventricles Name Value Normal LV Dimensions 2D/MM IVS Diastolic Thickness (2D) 1.1 cm 0.6-1.0 LVID Diastole (2D) 3.7 cm 4.2-5.8 LVPW Diastolic Thickness (2D) 1.2 cm 0.6-1.0 LV Mass (2D Cubed) 134 g 88-224 LV Mass Index (2D Cubed) 61 g/m2 49-115 Relative Wall Thickness (2D) 0.64 <=0.42 RV Dimensions 2D/MM TAPSE 2.1 cm >=1.7 Atria Name Value Normal LA Dimensions LA Dimension (2D) 4.4 cm 3.0-4.1 LA Dimen Index (2D) 2.0 cm/m2 LA Dimension (MM) 4.2 cm 3.0-4.1 LA Volume (BP MOD) 48 ml LA Volume Index (BP MOD) 22 ml/m2 16-34 RA Dimensions RA Area (4C) 21 cm2 <=18 RA Area (4C) Index 9 cm2/m2 RA ESV (4C MOD) 67 ml 18-32 RA ESV Index (4C MOD) 31 ml/m2 16-34 Report Signatures Finalized by Susan Rivera on 06/10/2024 01:53 PM López Yeager MD ECHO CUPID * (ABNORMAL) GLUCOSE - POINT OF CARE (06/10/2024 12:48 PM PATIENT ADVOCATE) Only the most recent of11 resultswithin the time period is included. Pathologist [facility] Glucose WB/POC 159(H) 70 - 99 mg/dL 06/10/2024 12:53 PM PATIENT ADVOCATE [facility] Specimen Type Cap Fingerstick 2024 12:53 PM PATIENT ADVOCATE [facility] Blood BLOOD SPECIMEN / Unknown 06/10/2024 12:48 PM PATIENT ADVOCATE 06/10/2024 12:53 PM PATIENT ADVOCATE Olimpia No MD LAB - POINT OF CARE ORDERABLES [facility] [address] [place] [address] * (ABNORMAL) CBC W/O DIFFERENTIAL (06/10/2024 4:45 AM PATIENT ADVOCATE) Only the most recent of2 resultswithin the time period is included. Pathologist [facility] WBC 2.3(L) 4.0 - 10.7 x10E9/L 06/10/2024 5:36 AM PATIENT ADVOCATE [facility] RBC Count 4.44 4.30 - 5.80 x10E12/L 06/10/2024 5:36 AM [facility] Hemoglobin 13.2(L) 13.3 - 17.5 g/dL 06/10/2024 5:36 AM [facility] Hematocrit 37.8(L) 38.7 - 51.1 % 06/10/2024 5:36 AM [facility] MCV 85.1 80.0 - 98.0 fL 06/10/2024 5:36 AM [facility] MCH 29.7 26.7 - 33.6 pg 06/10/2024 5:36 AM [facility] MCHC 34.9 31.7 - 36.3 g/dL 06/10/2024 5:36 AM [facility] RDW-CV 15.2(H) 11.3 - 14.8 % 06/10/2024 5:36 AM [facility] Platelet Count 64(L) 150 - 420 x10E9/L 06/10/2024 5:36 AM [facility] MPV 10.9 7.8 - 11.4 fL 06/10/2024 5:36 AM [facility] Blood BLOOD SPECIMEN / Unknown Venipuncture / Unknown 06/10/2024 4:45 AM PATIENT ADVOCATE 06/10/2024 5:[address] [facility] Olimpia No MD LAB - HEMATOLOGY ORD ERABLES [facility] [address] [place] [address] * (ABNORMAL) BASIC METABOLIC PANEL (CALCIUM TOTAL) (06/10/2024 4:[address] [facility]) Glucose 107(H) 70 - 99 mg/dL 06/10/2024 5:25 AM [facility] Sodium 139 136 - 145 mmol/L 06/10/2024 5:25 AM [facility] Potassium 3.4(L) 3.5 - 5.1 mmol/L 06/10/2024 5:25 AM [facility] Chloride 107 98 - 107 mmol/L 06/10/2024 5:25 AM [facility] CO2 22 22 - 29 mmol/L 06/10/2024 5:25 AM [facility] Calcium 8.2(L) 8.4 - 10.4 mg/dL 06/10/2024 5:25 AM [facility] Anion Gap 10 6 - 16 mmol/L 06/10/2024 5:25 AM [facility] BUN 15 7 - 26 mg/dL 06/10/2024 5:25 AM [facility] Creatinine 0.70(L) 0.72 - 1.25 mg/dL 06/10/2024 5:25 AM [facility] eGFR by CKD-EPI >90 >=90 mL/min/1.7 3 m2 06/10/2024 5:25 AM [facility] Blood BLOOD SPECIMEN / Unknown Venipuncture / Unknown 06/10/2024 4:45 AM PATIENT ADVOCATE 06/10/2024 5:01 AM PATIENT ADVOCATE Olimpia No MD LAB - CHEMISTRY LIONEL WHITT Performing Organization Address [facility] Co de Phone Number [facility] [address] [place], [place] [id number] * TSH REFLEX FREE T4 (06/09/2024 1:59 AM PATIENT ADVOCATE) TSH 0.559 0.350 - 4.940 uIU/mL 06/09/2024 2:56 AM [facility] Blood BLOOD SPECIMEN / Unknown Venipuncture / Unknown 06/09/2024 1:59 AM PATIENT ADVOCATE 06/09/2024 2:15 AM PATIENT ADVOCATE López Yeager MD LAB - CHEMISTRY ORDKunal WHITT Performing Organization Address [facility] Co de Phone Number [facility] [address] [place] [address] * (ABNORMAL) HEMOGLOBIN A1C (06/09/2024 1:59 AM PATIENT ADVOCATE) Hemoglobin A1c 9.1(H) <5.7 % 06/09/2024 2:28 AM PATIENT ADVOCATE [facility] Estimated Average Glucose 214 mg/dL 06/09/2024 2:28 AM PATIENT ADVOCATE [facility] Blood BLOOD SPECIMEN / Unknown Venipuncture / Unknown 06/09/2024 1:59 AM PATIENT ADVOCATE 06/09/2024 2:15 AM PATIENT ADVOCATE [facility] - 06/09/2024 2:[address] [facility] HbA1c Interpretation: Normal: < 5.7% Pre-diabetes: 5.7-6.4% Diabetes: Equal to or greater than 6.5% Test results diagnostic of diabetes should be repeated for confirmation. Treatment target values recommended by ADA and other clinical organizations should be used to evaluate metabolic control in patients. This test should not replace glucose testing for patients with Type 1 diabetes, pediatric patients, or women. Falsely low HbA1c results may be observed in patients with clinical conditions that shorten erythrocyte life span or decrease mean erythrocyte age such as the presence of unstable hemoglobin variants, elevated hemoglobin F level or other causes of hemolytic anemia. HbA1c may not accurately reflect glycemic control when clinical conditions that affect erythrocyte survival are present. Severe Iron deficiency anemia may yield falsely high results. Hemoglobin A1c assay should not be used to diagnose or monitor diabetes in patients with malignancy, recent blood transfusion, chronic kidney or liver disease. This method may yield falsely low results when hemoglobin (HbF) exceeds 5% in the specimen. The Phoenix Alinity assay for the measurement of HbA1c is a National Glycohemoglobin Standardization Program (NGSP) certified method. López Yeager MD LAB - CHEMISTRY LIONEL WHITT [facility] Organization Address City/State/ZIP Co de Phone Number [facility] [address] [place] [address] * (ABNORMAL) COMPREHENSIVE METABOLIC PANEL (06/09/2024 1:59 AM PATIENT ADVOCATE) Only the most recent of2 resultswithin the time period is included. Pathologist [facility] Glucose 220(H) 70 - 99 mg/dL 06/09/2024 3:01 AM [facility] Sodium 134(L) 136 - 145 mmol/L 06/09/2024 3:01 AM [facility] Potassium 4.2 3.5 - 5.1 mmol/L 06/09/2024 3:01 AM [facility] Chloride 104 98 - 107 mmol/L 06/09/2024 3:01 AM [facility] CO2 21(L) 22 - 29 mmol/L 06/09/2024 3:01 AM [facility] Calcium 8.1(L) 8.4 - 10.4 mg/dL 06/09/2024 3:01 AM [facility] Anion Gap 9 6 - 16 mmol/L 06/09/2024 3:01 AM [facility] BUN 18 7 - 26 mg/dL 06/09/2024 3:01 AM [facility] Creatinine 0.85 0.72 - 1.25 mg/dL 06/09/2024 3:01 AM [facility] Alkaline Phosphatase 65 40 - 150 U/L 06/09/2024 3:01 AM [facility] ALT 14 0 - 55 U/L 06/09/2024 3:01 AM [facility] AST 50(H) 5 - 34 U/L 06/09/2024 3:01 AM [facility] Protein Total 5.8(L) 6.4 - 8.3 gm/dL 06/09/2024 3:01 AM [facility] Albumin 2.8(L) 3.4 - 5.0 gm/dL 06/09/2024 3:01 AM [facility] Bilirubin Total 3.2(H) 0.2 - 1.2 mg/dL 06/09/2024 3:01 AM [facility] eGFR by CKD-EPI >90 >=90 mL/min/1.7 3 m2 06/09/2024 3:01 AM [facility] Blood BLOOD SPECIMEN / Unknown Venipuncture / Unknown 06/09/2024 1:59 AM PATIENT ADVOCATE 06/09/2024 2:[address] [facility] López Yeager MD LAB - CHEMISTRY LIONEL WHITT [facility] [address] [place] [address] * PHOSPHORUS BLOOD (06/09/2024 1:[address] [facility]) [facility] Phosphorus 3.1 2.5 - 4.5 mg/dL 06/09/2024 2:40 AM [facility] Blood BLOOD SPECIMEN / Unknown Venipuncture / Unknown 06/09/2024 1:59 AM PATIENT ADVOCATE 06/09/2024 2:15 AM PATIENT ADVOCATE López Yeager MD LAB - CHEMISTRY LIONEL WHITT Performing Organization Address [facility] de Phone Number [facility] [address] [place] [id number] * MAGNESIUM BLOOD (06/09/2024 1:59 AM PATIENT ADVOCATE) Only the most recent of2 resultswithin the time period is included. Magnesium 1.7 1.6 - 2.6 mg/dL 06/09/2024 2:40 AM PATIENT ADVOCATE [facility] Blood BLOOD SPECIMEN / Unknown Venipuncture / Unknown 06/09/2024 1:59 AM PATIENT ADVOCATE 06/09/2024 2:15 AM PATIENT ADVOCATE López Yeager MD LAB - CHEMISTRY LIONEL WHITT Performing Organization Address [facility] de Phone Number [facility] [address] [place] [address] * (ABNORMAL) LIPID PROFILE (06/09/2024 1:59 AM PATIENT ADVOCATE) Cholesterol 69 <200 mg/dL 06/09/2024 2:40 AM [facility] Triglycerides 99 <150 mg/dL 06/09/2024 2:40 AM [facility] HDL Cholesterol 19(L) >40 mg/dL 2:40 AM [facility] LDL Calculated 30 <130 mg/dL 06/09/2024 2:40 AM [facility] VLDL Calculated 20 <=30 mg/dL 2:40 AM [facility] Chol HDL Ratio 3.6 <4.5 06/09/2024 2:40 AM [facility] LDL/HDL Ratio 1.6 <5.0 06/09/2024 2:40 AM [facility] Blood BLOOD SPECIMEN / Unknown Venipuncture / Unknown 06/09/2024 1:59 AM PATIENT ADVOCATE 06/09/2024 2:15 AM PATIENT ADVOCATE López Yeager MD LAB - CHEMISTRY LIONEL WHITT [facility] [address] [place] [address] * XR Chest 1Vw Portable (06/08/2024 5:04 PM PATIENT ADVOCATE) Anatomical Region Laterality Modality Chest Computed Radiogr aphy 06/08/2024 6:49 PM PATIENT ADVOCATE Impressions 06/08/2024 6:50 PM PATIENT ADVOCATE IMPRESSION: No acute disease in the chest. Borderline cardiomegaly. > Interpreting Provider: Harry England MD on 06/08/2024 6:50 PM Narrative 06/08/2024 6:50 PM PATIENT ADVOCATE PROCEDURE: XR CHEST 1VW PORTABLE DATE/TIME OF EXAM: 06/08/2024 5:05 PM CLINICAL INFORMATION: Elevated troponin level. Indication: R79.89: Other specified abnormal findings of blood chemistry Additional History: COMPARISON: None. FINDINGS: A single AP view of the chest is available. The heart size is at the upper limits of normal to mildly enlarged. No confluent infiltrates can be seen in the lungs. The left lower lobe is partly obscured by the cardiac silhouette. There are no definite pleural effusions. court monitor wires obscure the chest bilaterally. Procedure Note Harry England MD - 06/08/2024 PROCEDURE: XR CHEST 1VW PORTABLE DATE/TIME OF EXAM: 06/08/2024 5:05 PM CLINICAL INFORMATION: Elevated troponin level. Indication: R79.89: Other specified abnormal findings of blood chemistry Additional History: COMPARISON: None. FINDINGS: A single AP view of the chest is available. The heart size is at theupper limits of normal to mildly enlarged. No confluent infiltrates can beseen in the lungs. The left lower lobe is partly obscured by the cardiac silhouette. There are no definite pleural effusions. Cardiac monitorwires obscure the chest bilaterally. IMPRESSION: No acute disease in the chest. Borderline cardiomegaly. > Interpreting Provider: Harry England MD on 06/08/2024 6:50 PM López Yeager MD DIAGNOSTIC IMAGING O RDERABLES * (ABNORMAL) TROPONIN-I HIGH SENSITIVE (06/08/2024 4:39 PM PATIENT ADVOCATE) Troponin I High Sensitive 54(H) <=35 ng/L 06/08/2024 5:21 PM [facility] Blood BLOOD SPECIMEN / Unknown Venipuncture / Unknown 06/08/2024 4:39 PM PATIENT ADVOCATE 06/08/2024 4:55 PM PATIENT ADVOCATE López Yeager MD LAB - CHEMISTRY LIONEL WHITT [facility] Organization Address City/State/ZIP Co de Phone Number [facility] [address] [place] [address] * (ABNORMAL) CBC W AUTO DIFFERENTIAL (06/08/2024 4:39 PM PATIENT ADVOCATE) [facility] WBC 4.2 4.0 - 10.7 x10E9/L 06/08/2024 5:12 PM [facility] RBC Count 5.01 4.30 - 5.80 x10E12/L 06/08/2024 5:12 PM [facility] Hemoglobin 14.8 13.3 - 17.5 g/dL 06/08/2024 5:12 PM [facility] Hematocrit 42.1 38.7 - 51.1 % 06/08/2024 5:12 PM [facility] MCV 84.0 80.0 - 98.0 fL 06/08/2024 5:12 PM [facility] MCH 29.5 26.7 - 33.6 pg 06/08/2024 5:12 PM [facility] MCHC 35.2 31.7 - 36.3 g/dL 06/08/2024 5:12 PM [facility] RDW-CV 15.9(H) 11.3 - 14.8 % 06/08/2024 5:12 PM [facility] Platelet Count 67(L) 150 - 420 x10E9/L 06/08/2024 5:12 PM [facility] MPV 10.4 7.8 - 11.4 fL 06/08/2024 5:12 PM [facility] Neutrophil % 67.5 41.0 - 74.0 % 06/08/2024 5:12 PM [facility] Lymphocyte % 15.4(L) 17.0 - 47.0 % 06/08/2024 5:12 PM PATIENT ADVOCATE [facility] Monocyte % 15.9(H) 3.0 - 11.0 % 06/08/2024 5:12 PM PATIENT ADVOCATE [facility] Eosinophil % 0.0 0.0 - 7.0 % 06/08/2024 5:12 PM PATIENT ADVOCATE [facility] Basophil % 0.7 0.0 - 1.6 % 06/08/2024 5:12 PM PATIENT ADVOCATE [facility] Immature Granulocytes % 0.5 0.0 - 1.0 % 06/08/2024 5:12 PM PATIENT ADVOCATE [facility] Neutrophil Absolute 2.80 1.60 - 7.50 x10E9/L 06/08/2024 5:12 PM PATIENT ADVOCATE [facility] Lymphocyte Absolute 0.64(L) 1.00 - 4.40 x10E9/L 06/08/2024 5:12 PM [facility] Monocyte Absolute 0.66 0.15 - 1.00 x10E9/L 06/08/2024 5:12 PM [facility] Eosinophil Absolute 0.00 0.00 - 0.60 x10E9/L 06/08/2024 5:12 PM PATIENT ADVOCATE [facility] Basophil Absolute 0.03 0.00 - 0.13 x10E9/L 06/08/2024 5:12 PM PATIENT ADVOCATE [facility] Blood BLOOD SPECIMEN / Unknown Venipuncture / Unknown 06/08/2024 4:39 PM PATIENT ADVOCATE 06/08/2024 4:55 PM PATIENT ADVOCATE López [facility]ager [facility] Organization Address City/State/[facility] Co de Phone Number [facility] [address] [place] [address] * (ABNORMAL) B-TYPE NATRIURETIC PEPTIDE (06/08/2024 4:39 PM PATIENT ADVOCATE) BNP 345(H) <=100 pg/mL 06/08/2024 5:19 PM PATIENT ADVOCATE [facility] Blood BLOOD SPECIMEN / Unknown Venipuncture / Unknown 06/08/2024 4:39 PM PATIENT ADVOCATE 06/08/2024 4:55 PM PATIENT ADVOCATE López Yeager MD LAB - CHEMISTRY ORDE [facility] [address] [place] [address] from Last 3 Months Advance Directives * Full Code (Latest Code Status on File) Date Activated Date Inactivated Comments 06/08/2024 3:48 PM 06/10/2024 7:18 PM Care Teams Electrical Appliance Servicer Relationship Specialty Start Date End Date Braydon Pavon PA [address] [place] [address] PCP - General Physician Ingot Caster 07/14/23
--- OUTSIDE RECORDS SUMMARY | 2024-07-21 07:36 | XMS_ITS | Continuity of Care Document ---
Author Organization [facility] Address [address] [facility] [place] [address] Phone Care Team Providers Care Telephone Answerer Name Role Phone Roosevelt Mcgee MD Unavailable Unavailable Allergies, Adverse Reactions, Alerts Substance Reaction Status Criticality CIPROFLOXACIN HCL Active No Informa tion ciprofloxacin Active No Information erythromycin base Active No Informa tion Sulfa (Sulfonamide Antibiotics) Active No Information PENICILLIN Active No Information Medications Medication Instructions Dosage Effective Dates (start - stop) Status Comments Henniker 10 mg-325 mg tablet take 1 tablet [...] Copied on Encounter OFFICE/OUTPA TIENT VISIT, EST [facility], [address] [place], [place], [id number], [place] tel:[phone] [facility] anxiety1 (chief complaint) DM (chief complaint) liver cirrhosis (chief complaint) GERD1 (chief complaint) chronic pain (chief complaint) Type 2 diabetes mellitus without complicationsGenera lized Anxiety DisorderOther cirrhosis of liverChronic pain syndrome 2-201 [address] [place], [id number] , . tel:[phone] Referring Provider: Roosevelt Mcgee [address], [place], [place], [address]. tel:[phone] Family History Family Member Type Diagnosis Age [...] takes lantus, tradejnta, humalog. His BG is [id number]. Pt sees endo for his DM. Pt [...] Mental Status Date Cognitive Assessment Orientation - [place] ed to time, place, person, situation.
--- OUTSIDE RECORDS SUMMARY | 2024-07-21 07:36 | XMS_ITS | Encounter Summary ---
Author Organization [facility] Healthcare Address [address] [place] [address] Care Team Providers Care Fur Dyer Name Role Phone Braydon Pavon Primary Care Provider [phone] Nikolay Lancaster MD Unavailable [phone] Simon Lundberg MD Primary Care Provider [phone] Nacho Rodriguez MD Unavailable [phone] Elian Gross MD Unavailable Braydon Pavon Primary Care Provider [phone] Encounter Details Date Type Department Care Team (Late st Contact Info) Description 09/14/2020 Telephone [facility] [address] [place] [place], [place] [id number] Trice Aldana, RT Social History Tobacco Use [...] file 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 Gender Identity Male 10/29/2020 12:37 PM CDT Sexual Orientation Straight 10/29/2020 12 :37 PM CDT documented as of this encounter Plan of Treatment Not on file documented as of this encounter Visit Diagnoses Not on filedocumented in this encounter Care Teams Fur Dyer Relationship Specialty Start Date End Date Braydon Pavon PA [address] [place] [address] PCP - General Family Practice 05/09/20 05/19/21 Simon Lundberg MD [address] [place] [address] PCP - General Family Medicine 05/20/21 08/22/21 Braydon Pavon PA [address] [place] [address] PCP - General 08/23/21 Nikolay Lancaster MD [address] [place] [address] 05/09/20 05/19/21 [place] [address] [facility] [facility] [address], [place] [address] Consulting Physician Endocrinology 05/20/21 [place] [address] [address] [facility] [address] [place] [address] Consulting Physician Internal Medicine 05/20/21 documented as of this encounter
--- OUTSIDE RECORDS SUMMARY | 2024-07-21 07:36 | XMS_ITS | Encounter Summary ---
Author Organization [facility] Healthcare Address [address] [place] [address] Care Team Providers Care Wood Milling Machine Hand Name Role Phone Braydon Pavon Primary Care Provider [phone] Nikolay Lancaster MD Unavailable [phone] Simon Lundberg MD Primary Care Provider [phone] Nacho Rodriguez MD Unavailable [phone] Elian Gross MD Unavailable Braydon Pavon Primary Care Provider [phone] Encounter Details Date Type Department Care Team (Late st Contact Info) Description 10/05/2020 Telephone [facility] [address] [place], [place] [id number] Trice Aldana, RT Social History Tobacco Use [...] on file 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 Gender Identity Male 10/29/2020 12:37 PM CDT Sexual Orientation Straight 10/29/2020 12 :37 PM CDT documented as of this encounter Plan of Treatment Not on file documented as of this encounter Visit Diagnoses Not on filedocumented in this encounter Care Teams Wood Milling Machine Hand Relationship Specialty Start Date End Date Braydon Pavon PA [address] [place] [address] PCP - General Family Practice 05/09/20 05/19/21 Simon Lundberg MD [address] [place] [address] PCP - General Family Medicine 05/20/21 08/22/21 Braydon Pavon PA [address] [place] [address] PCP - General 08/23/21 Nikolay Lancaster MD [address] [place] [address] 05/09/20 05/19/21 [place] [address] [address] [facility] [address], [place] [address] Consulting Physician Endocrinology 05/20/21 [place] [address] [address] [facility] [address], [place] [address] Consulting Physician Internal Medicine 05/20/21 documented as of this encounter
--- OUTSIDE RECORDS SUMMARY | 2024-07-21 07:36 | XMS_ITS | Clinical Summary ---
Author Organization [facility] Address [address] [place] [address] Care Team Providers Care Swatch Clerk Name Role Phone Braydon Pavon Primary Care Provider [phone] Allergies Active Allergy Reactions Criticality Noted Date [...] (two) times daily. Active vitamin D2, ergocalciferol, 09251 UNITS capsule Take 1 capsule (50,000 Units total) by mouth every 30 (thirty) days. Active Insulin Pen Needle (PEN NEEDLES) 32G X 4 MM Misc Inject 3 times daily 08/04/19 20 Active ONE TOUCH ULTRA TEST STRIPS test stripIndications:T ype 2 diabetes mellitus with hyperglycemia, with long-term current use of insulin ([facility]) Test 4 times daily 200 [...] current use of insulin ([facility]) Inject 0.4 mLs (200 Units total) into the skin 3 (three) times daily before meals. 18 mL 11 02/19/20 24 Active Additional Information Patient taking differently:200 Units Subcutaneous 3 times daily before meals,Pt taking 200 units three times, Reported on 05/31/2024 Continuous Glucose Sensor (The [employer] G7 SENSOR) MiscIndications:Ty pe 2 diabetes mellitus with hyperglycemia, with long-term current use of insulin ([facility] H[facility]/HCC) CHANGE SENSOR EVERY 10 DAYS 3 [...] current use of insulin ([facility]CC) Take 1 tablet (500 mg total) by mouth daily with supper. 90 tablet 1 05/31/19 25 Active Active Problems Problem Noted Date Diagnosed Date Diabetic neuropathy associat ed with type 2 diabetes mellitus ([facility]) 10/29/2020 Lumbar degenerative disc disease 05/23/2019 Essential hypertension 07/21/2018 TRACY (obstructive sleep apnea) 09/14/2016 Thrombocytopenia 09/14/2016 Esophageal varices ([facility]) 09/09/2016 Hepatic encephalopathy ([facility]) 017 Type 2 diabetes mellitus wit h hyperglycemia, with long-term current use of insulin ([facility]) 09/09/2016 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 s/p TIPS in 2015. -RUQ today showing TIPS with slower velocity compared to 08/2017 but still patent, rec close FU. -rifaximin -holding lactulose for diarrhea -should have BB outpt Resolved Problems Problem Noted Date Diagnosed Date Resolved Date Bacterial endocarditis ([facility]) 05/14/2020 06/05/2024 BALND (nonalcoholic steatohepatitis) 07/21/2018 04/05/2019 Diabetes mellitus, type 2 ([facility]) 02/02/2018 06/05/2024 Morbid obesity 12/09/2016 06/05/2024 History of upper gastrointestinal hemorrhage 6 04/05/2019 Encounters Date Type Department Care Team Description 05/31/2024 12:00 PM VISUAL ARTIST Office Visit [facility] Medical [facility] Diabetes and Endocrinology - [address] [phone] Eva Power MD Type 2 Diabetes 05/31/2024 Travel 05/10/2024 Telephone [facility] Diabetes and Endocrinology [address] [phone] Eva Power MD Called To Cancel Office Appt. from Last 3 Months Family History Medical [...] Comments Blood Pressure 134/77 05/31/2024 8:59 AM VISUAL ARTIST Pulse 84 05/31/2024 8:47 AM VISUAL ARTIST Temperature 36.8 C (98.3 F) 02/15/2024 1:54 PM CDT Respiratory Rate 11 01/23/2024 12:30 AM CDT Oxygen Saturation 96% 05/31/2024 8:47 AM VISUAL ARTIST Inhaled Oxygen Concentration - - Weight 100.2 kg (221 lb) 02/15/2024 1:54 PM CDT Height 172.7 cm (5' 8 ) 05/31/2024 8:47 AM VISUAL ARTIST Body Mass Index 33.6 02/15/2024 1:54 PM CDT Plan of Treatment Upcoming Encounters Date Type Department Care Team (Late st Contact Info) Description 08/30/2024 12:00 PM CDT Office Visit [facility] Medical Group Diabetes and Endocrinology - [address] [phone] Eva Power MD [address] [place] [address] Health Maintenance Due Date Last Done Comments [...] 12/08/2020 Influenza Adult (#1) 2024 PHQ-2 (Physician [place]) 05/04/2024 02/15/2024 Hemoglobin A1C 08/29/2024 05/31/2024, 11/02, [...] this topic Medical Devices Implanted Type Area Manager Pmo Device Identifier Shelf Expiration Date Model / Serial / Lot Lifestar Stent-01/02/2021 Implanted: 021 (Quantity not on file) Stent Abdomen [employer] - DIV C R BARD [id number] / / Description:Non-clinical silvia ting demonstrated that the [employer] Vascular Stent is MR Conditional. A patient with the [employer] LifeStar Vascular Stent can be scanned safely, immediately after placement of this implant, under the following conditions: Static magnetic field of 3.0 Kallie or less Normal operating mode of the MR system and use of whole body transmit coil. Spatial gradient field of 720 Gauss/cm or less Maximum [id number] specific absorption rate (IVANA) of 2-W/kg for 15 minutes of scanning for patient landmarks above the umbilicus. Maximum WB-IVANA of 1 W/kg for 15 min. of scanning for patient landmarks below the umbilicus. Procedures Procedure Name Priority Date/Time Associated Diagnosis Comments ALBUMIN URINE RANDOM W/CREATININE Routine 05/31/2024 10:36 AM VISUAL ARTIST Type 2 diabetes mellitus with hyperglycemia, with long-term current use of insulin ([facility]) COLLECT.CAPILLARY (FNGR,HEEL,EAR) Routine 05/31/2024 8:47 AM VISUAL ARTIST Type 2 diabetes mellitus with hyperglycemia, with long-term current use of insulin ([facility]) GLUCOSE BLOOD, MONITOR DEVICE Routine 05/31/2024 Type 2 diabetes mellitus with hyperglycemia, with long-term current use of insulin ([facility]) HEMOGLOBIN, GLYCOSYLATED Routine 05/31/2024 Type 2 diabetes mellitus with hyperglycemia, with long-term current use of insulin ([facility]) from Last 3 Months Results * ALBUMIN/CREATININE RATIO, RANDOM URINE (05/31/2024 10:36 AM VISUAL ARTIST) MICROALBUMIN (U) 10.4 <20 MG/L 05/31/19 7:37 PM VISUAL ARTIST [facility] CREATININE RANDOM (U) 47.4 MG/DL 05/31/2024 7:37 PM VISUAL ARTIST [facility] ALBUMIN/CREAT RATIO 21.9 <30 MG/G 05/31/2024 7:37 PM VISUAL ARTIST [facility] URINE SPECIMEN / Unknown 05/31/2024 10:36 AM VISUAL ARTIST Eva Power MD URINE ORDERABLES Final Result Performing Organization Address City/[facility]/ZIP Co de Phone Number [facility] [address] [place] [address], [place] [phone] * HEMOGLOBIN, GLYCOSYLATED (05/31/2024) HGB A1C 10.3 % [address] [place] 05/31/2024 Eva Power MD LABORATORY Final Result [address] [place] [address] [place] [address], * (ABNORMAL) GLUCOSE BLOOD, MONITOR DEVICE (05/31/2024) GLUCOSE WHOLE BLOOD 323(A) 70 - 100 mg/dL -[address], [place] 05/31/2024 Eva Power MD LABORATORY Final Result -[address], [place] [address] [place] [address], from Last 3 Months Insurance [facility] Care Teams Swatch Clerk Relationship Specialty Start Date End Date Braydon Pavon PA [address] [place] [address] PCP - General PHYSICIAN ARCHITECT INTERN 03/02/19
--- OUTSIDE RECORDS SUMMARY | 2024-07-21 07:36 | XMS_ITS | Clinical Summary ---
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 Use to [...] 05/20/2021 Assessment & Plan (05/22/2021 3:58 PM CANARY BREEDER): A initial well visit to establish care [...] unless otherwise indicated. Need follow-up arranged with senior solutions workflow consultant, cargo and container inspector Planning on referral to roof cement and paint maker Will need to check in to the tips follow-up Labs as ordered today, I will direct the A1 c to his cargo and container inspector's office. Continuing the current regimen for now. Blood pressure is controlled at this time. We may need to try to get the stress test done as well. Screen for colon cancer 03/01/2021 Overview (03/01/2021): Added automatically from request for surgery [id number] Diabetic neuropathy associat ed with type 2 diabetes mellitus 10/29/2020 Assessment & Plan (10/29/2020 4:23 PM CDT): Chronic, worsening Start, gabapentin therapy Work on better diabetic control Vitamin D deficiency 10/29/2020 Assessment & Plan (10/29/2020 4:23 PM CDT): Check labs and based on that for the plans Bacterial endocarditis 05/14/2020 Assessment & Plan (05/14/2020 11:09 AM CANARY BREEDER): Unfortunately the patient's records from [facility] are not available for my review. 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 s/p TIPS in 2016. -RUQ today showing TIPS with slower velocity compared to 08/2017 but still patent, rec close FU. -rifaximin -holding lactulose for diarrhea -should have BB outpt Assessment & Plan (02/02/2018 6:29 PM CDT): Management per primary team Encounters Date Type Department Care Team Description 07/06/2024 Documentation [facility] Gastroenterology [address] [place] [address] Advanced Medicine [address]th [place] [address] [place] [address] Sean Rodas, BETHANY 07/05/2024 9:40 AM CANARY BREEDER - 07/05/2024 11:59 PM CANARY BREEDER Hospital Encounter [facility] ([facility]) [address] [place] [id number] Hepatic cirrhosis, unspecified hepatic cirrhosis type, unspecified whether ascites present (HCC) Discharge Disposition: Discharge to home or self care 07/05/2024 Results Follow-Up [facility] Gastroenterology [address] [place] [address] Advanced Medicine [facility] [place] [address] [place] [address] Nilton Whatley MD 06/02/2024 8:55 AM CANARY BREEDER Lab [facility] Advanced [facility] ([facility]) [address] [place] [id number] Hepatic cirrhosis, unspecified hepatic cirrhosis type, unspecified whether ascites present (HCC) 06/02/2024 8:00 AM CANARY BREEDER Office Visit [facility] Gastroenterology [address] [place] [address] Advanced Medicine 12th [place] [address] [place] [address] Nilton Whatley MD Hepatic cirrhosis, unspecified hepatic cirrhosis type, unspecified whether ascites present (HCC) from Last 3 Months Immunizations Immunization Administration Dates Next Due Hep A / [...] encephalopathy (HCC) 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) Mild tricuspid regurgitation [facility] can [...] on file Legal Sex Male 2:52 PM CANARY BREEDER Gender Identity Male 10/29/2020 12:37 PM CDT Sexual Orientation Straight 10/29/2020 12 :37 PM CDT Obstetrics History Last Filed Vital Signs Vital Sign Reading Time Taken Comments Blood Pressure 117/76 06/02/2024 7:36 AM CANARY BREEDER Pulse 88 06/02/2024 7:36 AM CANARY BREEDER Temperature 36.7 C (98.1 F) 06/02/2024 7:36 AM CANARY BREEDER Respiratory Rate 17 01/20/2024 12:0 0 PM CDT Oxygen Saturation 92% 06/02/2024 7:36 AM CANARY BREEDER Inhaled Oxygen Concentration - - Weight 103.1 kg (227 lb 6.4 oz) 06/02/2024 7:36 AM CANARY BREEDER Height 172.7 cm (5' 8 ) 11/23/2023 7:53 AM CDT Body Mass Index 34.58 11/23/2023 7:53 AM CDT Plan of Treatment Health Maintenance Due Date Last Done Comments Prostate Cancer Screening-PSA 1970 Dilated Eye Exam 1970 DTaP/Tdap/Td Vaccine (1 - Tdap) 1981 Regular Well Visit/Exam 18-64 1988 Pneumococcal vaccine <65 (1 of 2 - PCV) 1989 Zoster Vaccine (1 of 2) 2020 Foot Exam 10/29/2021 10/29/2020 Albumin Creatinine Ratio, Urine 05/20/2022 2 Depression Screening 05/20/2022 05/20/2021, 05/20/2021, 10/29/2020 Covid-19 Vaccine (3 - 2023-2 5 season) 2024 12/29/2020, 12/08/2020 Influenza Vaccine (#1) 2024 Hemoglobin A1C 12/07/2024 06/09/2024, 11/02, 11/23/2023, Additional history exists eGFR 06/02/2025 06/02/2024, 01/02, 11/23/2023, Additional history exists Lipid Panel 06/09/2025 06/09/2024, 05/04, 08/28/2017, Additional history exists Colon Cancer Screening-Colonoscopy 12/17/20302020 Hepatitis C Screening Completed 08/23/2015 Medical Devices Implanted Type Area Assistant Printer Floor Covering Device Identifier Shelf Expiration Date Model / Serial / Lot [employer] Peripheral [employer] [id number] Lifestar 14mm 60mm 80cm Stent Biliary - [id number] Implanted:Qty: 1 on 01/10/2021 at [facility] [employer] 09/15/2023 [id number] / / [id number] Procedures Procedure Name Priority Date/Time Associated Diagnosis Comments US LIVER W COMPLETE DOPPLER Schedule Routine, Read Routine (OP Routine) 07/05/2024 11:25 AM CANARY BREEDER Hepatic cirrhosis, unspecified hepatic cirrhosis type, unspecified whether ascites present (HCC) EGFR Routine 06/02/2024 8:48 AM CANARY BREEDER Hepatic cirrhosis, unspecified hepatic cirrhosis type, unspecified whether ascites present (HCC) COMPREHENSIVE METABOLIC PANEL Routine 06/02/2024 8:48 AM CANARY BREEDER Hepatic cirrhosis, unspecified hepatic cirrhosis type, unspecified whether ascites present (HCC) PROTIME-INR Routine 06/02/2024 8:48 AM CANARY BREEDER Hepatic cirrhosis, unspecified hepatic cirrhosis type, unspecified whether ascites present (HCC) [id number], TUMOR MARKER Routine 06/02/2024 8:48 AM CANARY BREEDER Hepatic cirrhosis, unspecified hepatic cirrhosis type, unspecified whether ascites present (HCC) BILIRUBIN, DIRECT Routine 06/02/2024 8:4 8 AM CANARY BREEDER Hepatic cirrhosis, unspecified hepatic cirrhosis type, unspecified whether ascites present (HCC) HEMOGLOBIN A1C STAT 11/23/2023 8:40 AM CDT LIPID PANEL Routine 05/20/2021 9:36 AM CANARY BREEDER Morbid obesity with body mass index (BMI) of 40.0 to 44.9 in adult (HCC) ALBUMIN CREATININE RATIO, URINE Routine 05/20/2021 9:36 AM CANARY BREEDER Diabetic neuropathy associated with type 2 diabetes mellitus (HCC) COLONOSCOPY 12/17/2020 10:24 AM CDT SERUM HEPATITIS PANEL Routine 08/23/2015 5:23 PM CDT from Last 3 Months or Most Recently Relevant to Health Maintenance Results * US Liver W Complete Doppler (C) (07/05/2024 11:25 AM CANARY BREEDER) Anatomical Region Laterality Modality Abdomen N/A Ultrasound 07/05/2024 11:3 7 AM CANARY BREEDER Impressions 07/05/2024 11:57 AM CANARY BREEDER 1. Sonographic features of cirrhosis. 2. US LI-RADS Screening/Surveillance Category: US 1 - Negative. 3. Visualization Score: B: Moderate limitations in liver visualization. 4. Patent TIPS. US LI-RADS 2023 REFERENCE: US Category: US-1 Negative: No ultrasound evidence of hepatocellular carcinoma (HCC). US-2 Subthreshold: Observation<10 mm in diameter, not definitely benign. US-3 Positive: Observation detected that may warrant multi-phase contrast-enhanced imaging. Observation >/= 10 mm in diameter, not definitely benign, including areas of parenchymal distortion OR new thrombus in vein. Visualization Score: A. [...] the liver or diaphragm is not visualized. Consider alternative surveillance imaging modality depending on risk factors. Dictated by: Chito Hagen M.D. The radiology attending physician has personally reviewed this study, and had reviewed and/or edited this written report and agrees with it. Electronically signed by: Maurice Paul M.D. Narrative 07/05/2024 11:57 AM CANARY BREEDER EXAMINATION: 1. LIVER SONOGRAM 2. LIVER DOPPLER -TIPS HISTORY: BLAND cirrhosis (with TIPS for management of refractory hematemesis despite prior banding) with TIPS reversal of 01/10/2021. Surveillance ultrasound in patient at high risk for hepatocellular carcinoma. COMPARISON: Multiple, most recently 01/20/2024 FINDINGS: LIVER SONOGRAM: Liver: Visualization Score: B: Moderate limitations in liver visualization. Morphology/Parenchyma/contour: The liver is normal in size. The echotexture is coarse. The echogenicity is increased. There is mild surface nodularity. Liver observations: No focal liver observations. Ascites: No ascites. TIPS DOPPLER: Color Doppler and spectral analysis were used to evaluate the stent graft and hepatic vasculature. Portal veins: Main portal vein velocity measures 20 cm/second. Flow is antegrade in the right portal vein and retrograde in the left portal vein. TIPS stent: Maximum velocity within the stent graft occurs in the mid portion and measures 137 cm/sec (previously measured 137 cm/sec). Minimum velocity occurs within the distal portion of the stent and measures 109 cm/sec (previously measured 108 cm/sec).There is no evidence of stenosis. Draining hepatic vein: The draining hepatic vein is suboptimally visualized but appears to have antegrade flow. Collaterals: Umbilical and coronary vein areas are difficult to evaluate, obscured by overlying structures. Ascites: There is no ascites. Procedure Note Maurice Paul MD - 07/05/2024 EXAMINATION: 1. LIVER SONOGRAM 2. LIVER DOPPLER -TIPS HISTORY: BLAND cirrhosis (with TIPS for management of refractory hematemesis despite prior banding) with TIPS reversal of 01/10/2021. Surveillance ultrasound in patient at high risk for hepatocellular carcinoma. COMPARISON: Multiple, most recently 01/20/2024 FINDINGS: LIVER SONOGRAM: Liver: Visualization Score: B: Moderate limitations in liver visualization. Morphology/Parenchyma/contour: The liver is normal in size. The echotexture is coarse. The echogenicity is increased. There is mild surface nodularity. Liver observations: No focal liver observations. Ascites: No ascites. TIPS DOPPLER: Color Doppler and spectral analysis were used to evaluate the stent graft and hepatic vasculature. Portal veins: Main portal vein velocity measures 20 cm/second. Flow is antegrade in the right portal vein and retrograde in the left portal vein. TIPS stent: Maximum velocity within the stent graft occurs in the mid portion and measures 137 cm/sec (previously measured 137 cm/sec). Minimum velocity occurs within the distal portion of the stent and measures 109 cm/sec (previously measured 108 cm/sec).There is no evidence of stenosis. Draining hepatic vein: The draining hepatic vein is suboptimally visualized but appears to have antegrade flow. Collaterals: Umbilical and coronary vein areas are difficult to evaluate, obscured by overlying structures. Ascites: There is no ascites. IMPRESSION: 1. Sonographic features of cirrhosis. 2. US LI-RADS Screening/Surveillance Category: US 1 - Negative. 3. Visualization Score: B: Moderate limitations in liver visualization. 4. Patent TIPS. US LI-RADS 2023 REFERENCE: US Category: US-1 Negative: No ultrasound evidence of hepatocellular carcinoma (HCC). US-2 Subthreshold: Observation<10 mm in diameter, not definitely benign. US-3 Positive: Observation detected that may warrant multi-phase contrast-enhanced imaging. Observation >/= 10 mm in diameter, not definitely benign, including areas of parenchymal distortion OR new thrombus in vein. Visualization Score: A. [...] the liver or diaphragm is not visualized. Consider alternative surveillance imaging modality depending on risk factors. Dictated by: Chito Hagen M.D. The radiology attending physician has personally reviewed this study, and had reviewed and/or edited this written report and agrees with it. Electronically signed by: Maurice Paul M.D. us Nilton Whatley MD IMG US PROCEDURES Final Re sult * eGFR (06/02/2024 8:48 AM CANARY BREEDER) eGFR >90 >=60 mL/min/1. 73 m2 Comment: Interpretive Data Reference Interval Normal >/= 90 mL/min/1.73m2 Mildly decreased* 60 - 89 mL/min/1.73m2 Mildly to moderately decreased 45 - 59 mL/min/1.73m2 Moderately to severely decreased 30 - 44 mL/min/1.73m2 Severely decreased 15 - 29 mL/min/1.73m2 Kidney Failure < 15 mL/min/1.73m2 *Relative to young adult level Estimated glomerular [...] last reviewed 2021. Blood 06/02/2024 8:48 AM CANARY BREEDER 06/02/2024 9:05 AM CANARY BREEDER Nilton Whatley MD LAB BLOOD ORDERABLES Final Result Performing Organization Address City/State/[facility] Co ks Phone Number [facility] [place] [address] * [id number], Tumor Marker (06/02/2024 8:48 AM CANARY BREEDER) alpha Fetoprotein <2.0 <=8.3 ng/mL Comment: Interpretive Data The Crispin AFP assay procedure was used. Results from different manufacturers or methods may not be comparable. Serial testing should be performed using the same method. 0-1 month. AFP concentrations may reach or exceed 100,000 ng/mL after depending on gestational age and weight. 1-3 months 50 1000 ng/ml 3-6 months 10 500 ng/ml 6-12 months 3.0 100 ng/ml >1 year 0.0 8.3 ng/ml References Abbi Y. et al. J. Ped Surg 1978;13:155-156 Bruno Dee et al. Clin Chem Lab Med 2018;57:783-797 Jeyson Sanches et al. Clin Chem 2014;7892-0580. Current interpretive data was last revised 2022. Blood 06/02/2024 8:48 AM CANARY BREEDER 06/02/2024 9:00 AM CANARY BREEDER us Nilton Whatley MD LAB BLOOD ORDERABLES Final Result [facility] Department [place] [address] * (ABNORMAL) Protime-INR (06/02/2024 8:48 AM CANARY BREEDER) PT 13.5(H) 9.7 - 13.0 sec INR 1.24(H) 0.90 - 1.20 [facility] Comment: Interpretive data Oral anticoagulant therapeutic ranges: Venous thromboembolism prophylaxis or treatment: 2.0-3.0 CARDIOLOGY Standard range: 2.0-3.0 High-intensity range: 2.5-3.5 Refer to indication-specific guidelines for appropriate target ranges for prosthetic heart valve replacement. Current interpretive data was last revised on 2019. Blood 06/02/2024 8:48 AM CANARY BREEDER 06/02/2024 9:00 AM CANARY BREEDER us Nilton Whtaley MD LAB BLOOD ORDERABLES Final Result Performing Organization Address City/[facility] Co de Phone Number [facility] Department [place] [address] * (ABNORMAL) Bilirubin, direct (06/02/2024 8:48 AM CANARY BREEDER) Bilirubin, direct 0.6(H) 0.1 - 0.3 mg/dL Comment:Hemolyzed; result ma y be falsely decreased Blood 06/02/2024 8:48 AM CANARY BREEDER 06/02/2024 9:00 AM CANARY BREEDER us Nilton Whatley MD LAB BLOOD ORDERABLES Final Result Performing Organization Address City/[facility] Co de Phone Number [facility] Department [place] [address] * (ABNORMAL) Comprehensive metabolic panel (06/02/2024 8:48 AM CANARY BREEDER) Sodium 141 135 - 145 mmol/L Potassium, pl 4.3 3.3 - 4.9 mmol/L [facility] Comment:Hemolyzed; Potassium value may be falsely elevated by as much as 0.3-0.5 mmol/L. Suggest redraw and reanalysis. Chloride 107 97 - 110 mmol/L [facility] CO2 27 22 - 32 mmol/L [facility] Anion gap 7 2 - 15 mmol/L [facility] BUN 13 6 - 25 mg/dL [facility] Creatinine 0.76(L) 0.80 - 1.30 mg/dL [facility] Glucose 242(H) 70 - 199 mg/dL [facility] Comment: Interpretive Data Fasting glucose >/= 126 mg/dl is diagnostic for diabetes. Fasting is defined as no caloric intake [...] 2022. Calcium 9.6 8.5 - 10.3 mg/dL [facility] Bilirubin, total 3.0(H) 0.1 - 1.2 mg/dL [facility] Protein, pl 6.9 6.5 - 8.5 g/dL [facility] Albumin 3.8 3.5 - 5.0 g/dL [facility] Alk phos 90 40 - 130 Units/L [facility] ALT 19 7 - 55 Units/L [facility] AST 38 10 - 50 Units/L [facility] Comment:Hemolyzed; result ma y be falsely elevated Blood 06/02/2024 8:48 AM CANARY BREEDER 06/02/2024 9:00 AM CANARY BREEDER Nilton Whatley MD LAB BLOOD ORDERABLES Final Result Performing Organization Address City/[facility] Co de Phone Number [facility] MICHELH [facility] Department [place] [address] * Albumin Creatinine Ratio, Urine (05/20/2021 9:36 AM CANARY BREEDER) Albumin Ur <12.0 mg/L [facility] Comment: Interpretive Data No reference range established. Current interpretive data was last revised 2018. Creatinine Ur 47.6 mg/dL [facility] Comment: Interpretive Data No reference range established. Current interpretive data was last revised 2018. Albumin Creatinine Ratio, Ur <25 1 - 29 mg/g [facility] Urine 05/20/2021 9:36 AM CANARY BREEDER 05/20/2021 7:41 PM CANARY BREEDER Simon Lundberg MD LAB URINE ORDERABLES Final Result Performing Organization Address City/[facility] Co de Phone Number [facility] [phone] [facility] Department [place] [address] * (ABNORMAL) Lipid panel (05/20/2021 9:36 AM CANARY BREEDER) Cholesterol 110 30 - 199 mg/dL [facility] Comment: Interpretive Data Ages < or = 19 years Acceptable: <170 mg/dL Borderline high: 170-199 mg/dL High: >or= 200 mg/dL Ages > or = 20 years Desirable: <200 mg/dL Borderline high: 200-239 mg/dL High: >or= 240 mg/dL Literature References: 1. Expert Panel on Integrated Guidelines for Cardiovascular Health and Risk Reduction in Children and Adolescents. Pediatrics 2011;128:S213 2. NCEP Expert Panel. Circulation 2004;110:227 Current Interpretive Data was last revised on 2017. Triglycerides 149 <=149 mg/dL [facility] MARTINEZ Comment: Interpretive Data Ages < or = 9 years Acceptable: <75 mg/dL Borderline high: 75-99 mg/dL High: >or= 100 mg/dL Ages 10 to 20 years Acceptable: <90 mg/dL Borderline high: 90-129 mg/dL High: >or= 130 mg/dL Ages > or = 20 years Desirable: <150 mg/dL Borderline high: 150-199 mg/dL High: 200-499 mg/dL Very high: >or= 499 mg/dL Literature References: 1. Expert Panel on Integrated Guidelines for Cardiovascular Health and Risk Reduction in Children and Adolescents. Pediatrics 2011;128:S213 2. NCEP Expert Panel. Circulation 2004;110:227 Current Interpretive Data was last revised on 2017. HDL 33(L) >=40 mg/dL MOHINDER MARTINEZ Comment: Interpretive Data Ages < or = 19 years Acceptable: >45 mg/dL Borderline low: 40-45 mg/dL Low: <40 mg/dL Ages > or = 20 years Desirable: >or= 60 mg/dL Low: <40 mg/dL Literature References: 1. Expert Panel on Integrated Guidelines for Cardiovascular Health and Risk Reduction in Children and Adolescents. Pediatrics 2011;128:S213 2. NCEP Expert Panel. Circulation 2004;110:227 Current Interpretive Data was last revised on 2017. LDL, calculated 47 <=129 mg/dL MOHINDER MARTINEZ Comment: Interpretive Data Ages < or = 19 years Acceptable: <110 mg/dL Borderline high: 110-129 mg/dL High: >or= 130 mg/dL Ages > or = 20 years Optimal: <100 mg/dL Near optimal: 100-129 mg/dL Borderline high: 130-159 mg/dL High: >160 mg/dL Literature References: 1. Expert Panel on Integrated Guidelines for Cardiovascular Health and Risk Reduction in Children and Adolescents. Pediatrics 2011;128:S213 2. NCEP Expert Panel. Circulation 2003;110:227 Current Interpretive Data was last revised on 2017. Non-HDL Cholesterol 77 mg/dL MOHINDER MARTINEZ Comment: Interpretive Data Ages < or = 19 years Acceptable: <120 mg/dL Borderline high: 120-144 mg/dL High: >145 mg/dL Ages > or = 20 years When triglycerides are >200 mg/dL, Non-HDL cholesterol is a secondary target of therapy with treatment goals that are 30 mg/dL greater than the LDL cholesterol target. Literature References: 1. Expert Panel on Integrated Guidelines for Cardiovascular Health and Risk Reduction in Children and Adolescents. Pediatrics 2011;128:S213 2. NCEP Expert Panel. Circulation 2003;110:227 Current Interpretive Data was last revised on 2017. Chol/HDL ratio 3 MOHINDER MICHELLE Blood 05/20/2021 9:36 AM CANARY BREEDER 05/20/2021 7:41 PM CANARY BREEDER Simon Lundberg MD LAB BLOOD ORDERABLES Final Result MOHIND[facility] [id number] [facility] Department [place] [address] * COLONOSCOPY (12/17/2020 10:24 AM CDT) Anatomical Region Laterality Modality Other Narrative Procedure Note Elian Gross MD - 12/17/2020 10:24 AM CDT ENDOSCOPY LAB Patient Name: Camilo Curry Procedure Date: 12/17/2020 10:24 AM Date of : 1970 Admit Type: Outpatient Age: 50 Gender: Male Attending MD: Elian Vivar M.D. Room: [facility] ENDOSCOPY ROOM 02 Note Status: Finalized Procedure: [...] the physician, the nurse, the anesthesiologist, the biological scientist and thetechnician in the pre-procedure area in [...] The scope was passed under direct vision.The [id number] was introduced through the anusand advanced to the hepatic flexure. The colonoscopywas performed without difficulty. The patient tolerated the procedure well. The quality of the bowel preparation was unsatisfactory. The quality of the bowel preparation was evaluated using the BBPS([place] Bowel Preparation Scale) with scores of: RightColon [...] 10:24 AM us Elian Draper MD ENDOSCOPY IN OCEDURES Final Result * Serum Hepatitis panel (08/23/2015 5:23 PM CDT) HBV surface ag Negative NEG HISTO RICAL RESULTS HCV ab Negative NEG HISTORICAL RESULTS Comment: Interpretive Data If confirmation is required, call Laboratory Customer Service to request sample to be sent to [facility] for Hepatitis C Virus (HCV) RNA Detection and Quantitation by Real-Time Reverse School Secretary-PCR (RT-PCR). Current interpretive data was last revised [...] Recently Relevant to Health Maintenance Insurance [facility] [facility] [employer] [facility] [employer] [facility] Advance Directives For more information, please contact: [phone] * Full Code (Latest Code Status on [...] 11:57 AM 02/03/2018 5:26 AM Care Teams Pump Operator Relationship Specialty Start Date End Date Braydon Pavon PA [address] [place] [address] PCP - General 08/23/21 [place] [id number] [address] [facility] [address], [place] [address] Consulting Physician Endocrinology 05/20/21 [place] [address] [address] [facility] [address] [place] [address] Consulting Physician Internal Medicine 05/20/21
--- OUTSIDE RECORDS SUMMARY | 2024-07-21 07:36 | XMS_ITS | Referral Summary ---
Author Organization [facility] Address [address] [place] [address] Care Team Providers Care Sales Enablement Consultant Name Role Phone Nacho Rodriguez MD Unavailable [phone] Elian Gross MD Unavailable Braydon Pavon Primary Care Provider [phone] Encounters Date Type Department Care Team Description 07/06/2024 Documentation [facility] Gastroenterology [address] [facility] [address] [place] [address] [place] [address] Sean Rodas RN 07/05/2024 Results Follow-Up [facility]astroenter[facility] [address] [facility] [address] [place] [address] [place] [address] Nilton Whatley MD 07/05/2024 9:40 AM DESIGN EDITOR - 07/05/2024 11:59 PM DESIGN EDITOR Hospital Encounter [facility] [address] [place] [id number] Hepatic cirrhosis, unspecified hepatic cirrhosis type, unspecified whether ascites present (HCC) Discharge Disposition: Discharge to home or self care 06/02/2024 8:55 AM DESIGN EDITOR Lab [facility]) [address] [place] [phone] Hepatic cirrhosis, unspecified hepatic cirrhosis type, unspecified whether ascites present (HCC) 06/02/2024 8:00 AM DESIGN EDITOR Office Visit [facility] Gastroenterology 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 Use to [...] 05/20/2021 Assessment & Plan (05/22/2021 3:58 PM DESIGN EDITOR): A initial well visit to establish care [...] unless otherwise indicated. Need follow-up arranged with probate paralegal, degreaser operator Planning on referral to parking line painter Will need to check in to the tips follow-up Labs as ordered today, I will direct the A1 c to his degreaser operator's office. Continuing the current regimen for now. Blood pressure is controlled at this time. We may need to try to get the stress test done as well. Screen for colon cancer 03/01/2021 Overview (03/01/2021): Added automatically from request for surgery [id number] Diabetic neuropathy associat ed with type 2 diabetes mellitus 10/29/2020 Assessment & Plan (10/29/2020 4:23 PM CDT): Chronic, worsening Start, gabapentin therapy Work on better diabetic control Vitamin D deficiency 10/29/2020 Assessment & Plan (10/29/2020 4:23 PM CDT): Check labs and based on that for the plans Bacterial endocarditis 05/14/2020 Assessment & Plan (05/14/2020 11:09 AM DESIGN EDITOR): Unfortunately the patient's records from [place] are not available for my review. We [...] 05/14/2020 Assessment & Plan (05/14/2020 11:11 AM DESIGN EDITOR): The patient's dyspnea on exertion is likely [...] - follow up in 6 weeks with PET TRAINER Chelsea Driscoll ( to discuss about insulin [...] resume home regimen and follow-up with home degreaser operator MATHEUS pain 10/11/2017 Morbid obesity 12/09/2016 TRACY [...] PM CDT): Management per primary team Immunizations Immunization Administration Dates Next Due Hep [...] on file Legal Sex Male 2:52 PM DESIGN EDITOR Gender Identity Male 10/29/2020 12:37 PM CDT Sexual Orientation Straight 10/29/2020 12 :37 PM CDT Last Filed Vital Signs Vital Sign Reading Time Taken Comments Blood Pressure 117/76 06/02/2024 7:36 AM DESIGN EDITOR Pulse 88 06/02/2024 7:36 AM DESIGN EDITOR Temperature 36.7 C (98.1 F) 06/02/2024 7:36 AM DESIGN EDITOR Respiratory Rate 17 01/20/2024 12:0 0 PM CDT Oxygen Saturation 92% 06/02/2024 7:36 AM DESIGN EDITOR Inhaled Oxygen Concentration - - Weight 103.1 kg (227 lb 6.4 oz) 06/02/2024 7:36 AM DESIGN EDITOR Height 172.7 cm (5' 8 ) 11/23/2023 7:53 AM CDT Body Mass Index 34.58 11/23/2023 7:53 AM CDT Plan of Treatment Not on file Medical Devices Implanted Type Area Legal Analyst Device Identifier Shelf Expiration Date Model / Serial / Lot [employer] Peripheral Vascular [id number] Lifestar 14mm 60mm 80cm Stent Biliary - [id number] Implanted:Qty: 1 on 01/10/2021 at [facility] [employer] 09/15/2023 [id number] / / [id number] Procedures Procedure Name Priority Date/Time Associated Diagnosis Comments US LIVER W COMPLETE DOPPLER Schedule Routine, Read Routine (OP Routine) 07/05/2024 11:25 AM DESIGN EDITOR Hepatic cirrhosis, unspecified hepatic cirrhosis type, unspecified whether ascites present (HCC) EGFR Routine 06/02/2024 8:48 AM DESIGN EDITOR Hepatic cirrhosis, unspecified hepatic cirrhosis type, unspecified whether ascites present (HCC) COMPREHENSIVE METABOLIC PANEL Routine 06/02/2024 8:48 AM DESIGN EDITOR Hepatic cirrhosis, unspecified hepatic cirrhosis type, unspecified whether ascites present (HCC) PROTIME-INR Routine 06/02/2024 8:48 AM DESIGN EDITOR Hepatic cirrhosis, unspecified hepatic cirrhosis type, unspecified whether ascites present (HCC) [id number], TUMOR MARKER Routine 06/02/2024 8:48 AM DESIGN EDITOR Hepatic cirrhosis, unspecified hepatic cirrhosis type, unspecified whether ascites present (HCC) BILIRUBIN, DIRECT Routine 06/02/2024 8:4 8 AM DESIGN EDITOR Hepatic cirrhosis, unspecified hepatic cirrhosis type, unspecified whether ascites present (HCC) HEMOGLOBIN A1C STAT 11/23/2023 8:40 AM CDT LIPID PANEL Routine 05/20/2021 9:36 AM DESIGN EDITOR Morbid obesity with body mass index (BMI) of 40.0 to 44.9 in adult (HCC) ALBUMIN CREATININE RATIO, URINE Routine 05/20/2021 9:36 AM DESIGN EDITOR Diabetic neuropathy associated with type 2 diabetes mellitus (HCC) COLONOSCOPY 12/17/2020 10:24 AM CDT SERUM HEPATITIS PANEL Routine 08/23/2015 5:23 PM CDT from Last 3 Months or Most Recently Relevant to Health Maintenance Results * US Liver W Complete Doppler (C) (07/05/2024 11:25 AM DESIGN EDITOR) Anatomical Region Laterality Modality Abdomen N/A Ultrasound 07/05/2024 11:3 7 AM DESIGN EDITOR Impressions 07/05/2024 11:57 AM DESIGN EDITOR 1. Sonographic features of cirrhosis. 2. US [...] Maurice Paul M.D. Narrative 07/05/2024 11:57 AM DESIGN EDITOR EXAMINATION: 1. LIVER SONOGRAM 2. LIVER DOPPLER [...] Re sult * eGFR (06/02/2024 8:48 AM DESIGN EDITOR) eGFR >90 >=60 mL/min/1. 73 m2 Comment: [...] last reviewed 2021. Blood 06/02/2024 8:48 AM DESIGN EDITOR 06/02/2024 9:05 AM DESIGN EDITOR us Nilton Whatley MD LAB BLOOD ORDERABLES Final Result [facility] Department [place] [address] * [id number], Tumor Marker (06/02/2024 8:48 AM DESIGN EDITOR) alpha Fetoprotein <2.0 <=8.3 ng/mL Comment: Interpretive [...] et al. J. Ped Surg 1978;13:155-156 Bruno S. et al. Clin Chem Lab Med 2018;57:783-797 Jeyson Sanches et al. Clin Chem 2014;3047-4928. Current interpretive data was last revised 2022. Blood 06/02/2024 8:48 AM DESIGN EDITOR 06/02/2024 9:00 AM DESIGN EDITOR us Nilton M. Korenblat MD LAB BLOOD ORDERABLES Final Result [facility] Department [place] [address] * (ABNORMAL) Protime-INR (06/02/2024 8:48 AM DESIGN EDITOR) PT 13.5(H) 9.7 - 13.0 sec INR 1.24(H) 0.90 - 1.20 [facility] Comment: Interpretive data Oral anticoagulant therapeutic ranges: Venous thromboembolism prophylaxis or treatment: 2.0-3.0 CARDIOLOGY Standard range: 2.0-3.0 High-intensity range: 2.5-3.5 Refer to indication-specific guidelines for appropriate target ranges for prosthetic heart valve replacement. Current interpretive data was last revised on 2019. Blood 06/02/2024 8:48 AM DESIGN EDITOR 06/02/2024 9:00 AM DESIGN EDITOR us Nilton Whatley MD LAB BLOOD ORDERABLES Final Result Performing Organization Address [facility] Co de Phone Number [facility] [place] [address] * (ABNORMAL) Bilirubin, direct (06/02/2024 8:48 AM DESIGN EDITOR) Pathologist [facility] Bilirubin, direct 0.6(H) 0.1 - 0.3 mg/dL Comment:Hemolyzed; result ma y be falsely decreased Blood 06/02/2024 8:48 AM DESIGN EDITOR 06/02/2024 9:00 AM DESIGN EDITOR us Nilton Whatley MD LAB BLOOD ORDERABLES Final Result Performing Organization Address City/State/[place] Co de Phone Number [facility] [place] [address] * (ABNORMAL) Comprehensive metabolic panel (06/02/2024 8:48 AM DESIGN EDITOR) Pathologist [facility] Sodium 141 135 - 145 mmol/L Potassium, pl 4.3 3.3 - 4.9 mmol/L [facility] Comment:Hemolyzed; Potassium value may be falsely elevated by as much as 0.3-0.5 mmol/L. Suggest redraw and reanalysis. Chloride 107 97 - 110 mmol/L [facility] CO2 27 22 - 32 mmol/L [facility] Anion gap 7 2 - 15 mmol/L [facility] BUN 13 6 - 25 mg/dL [facility] Creatinine 0.76(L) 0.80 - 1.30 mg/dL [facility] Glucose 242(H) 70 - 199 mg/dL [facility] Comment: Interpretive Data Fasting glucose [...] 2022. Calcium 9.6 8.5 - 10.3 mg/dL [facility] Bilirubin, total 3.0(H) 0.1 - 1.2 mg/dL [facility] Protein, pl 6.9 6.5 - 8.5 g/dL [facility] Albumin 3.8 3.5 - 5.0 g/dL [facility] Alk phos 90 40 - 130 Units/L [facility] ALT 19 7 - 55 Units/L [facility] AST 38 10 - 50 Units/L [facility] Comment:Hemolyzed; result ma y be falsely elevated Blood 06/02/2024 8:48 AM DESIGN EDITOR 06/02/2024 9:00 AM DESIGN EDITOR Nilton Whatley MD LAB BLOOD ORDERABLES Final Result [facility] [address] [facility] Department [place] [address] * Albumin Creatinine Ratio, Urine (05/20/2021 9:36 AM DESIGN EDITOR) Albumin Ur <12.0 mg/L [facility] Comment: Interpretive Data No reference range established. Current interpretive data was last revised 2018. Creatinine Ur 47.6 mg/dL [facility] Comment: Interpretive Data No reference range established. Current interpretive data was last revised 2018. Albumin Creatinine Ratio, Ur <25 1 - 29 mg/g [facility] Urine 05/20/2021 9:36 AM DESIGN EDITOR 05/20/2021 7:41 PM DESIGN EDITOR us Simon Lundberg MD LAB URINE ORDERABLES Final Result [facility] [address] [place] [address] * (ABNORMAL) Lipid panel (05/20/2021 9:36 AM DESIGN EDITOR) Cholesterol 110 30 - 199 mg/dL [facility] [...] ratio 3 [facility] Blood 05/20/2021 9:36 AM DESIGN EDITOR 05/20/2021 7:41 PM DESIGN EDITOR us Simon Lundberg MD LAB BLOOD ORDERABLES Final Result Performing Organization Address City/State/[place] [address] [facility] Department [place] [address] * COLONOSCOPY (12/17/2020 10:24 AM CDT) Anatomical Region Laterality Modality Other Narrative Procedure Note Elian Gross MD - 12/17/2020 10:24 AM CDT ENDOSCOPY LAB Patient Name: Camilo Curry Procedure Date: 12/17/2020 10:24 AM Date of : 1970 Admit Type: Outpatient Age: 50 Gender: Male Attending MD: Elian Vivar M.D. Room: [facility] ENDOSCOPY ROOM 02 Note Status: Finalized [...] the physician, the nurse, the anesthesiologist, the cutter plastics rolls and thetechnician in the pre-procedure area in [...] The scope was passed under direct vision.The [id number] was introduced through the anusand advanced to the hepatic flexure. The colonoscopywas performed without difficulty. The patient tolerated the procedure well. The quality of the bowel preparation was unsatisfactory. The quality of the bowel preparation was evaluated using the BBPS(Orient Bowel Preparation Scale) with scores of: RightColon [...] 12/17/2020 10:24 AM Elian Draper MD ENDOSCOPY [place] OCEDURES Final Result * Serum Hepatitis panel (08/23/2015 5:23 PM CDT) HBV surface ag Negative NEG HISTO RICAL RESULTS HCV ab Negative NEG HISTORICAL RESULTS Comment: Interpretive Data If confirmation is required, call Laboratory Customer Service to request sample to be sent to [facility] for Hepatitis C Virus (HCV) RNA Detection and Quantitation by Real-Time Reverse Analytical Sciences Director-PCR (RT-PCR). Current interpretive data was last revised [...] Most Recently Relevant to Health Maintenance [facility] [place] Advance Directives For more information, please contact: [phone] * Full Code (Latest Code Status on [...] 11:57 AM 02/03/2018 5:26 AM Care Teams Sales Enablement Consultant Relationship Specialty Start Date End Date Braydon Pavon PA [address] [place] [address] PCP - General 08/23/21 [place] [address] [address] [facility] [address] [address] Consulting Physician Endocrinology 05/20/21 [place] [address] [address] [facility] [address] [address] Consulting Physician Internal Medicine 05/20/21
--- OUTSIDE RECORDS SUMMARY | 2024-07-21 07:37 | XMS_ITS | Encounter Summary ---
Author Organization [facility] Address [facility] [facility] [place] [address] Care Team Providers Care Administrative Services Coordinator Name Role Phone Braydon Pavon Primary Care Provider [phone] Nikolay Lancaster MD Primary Care Provider [phone] Braydon Pavon Primary Care Provider [phone] Reason for Visit * Reason Onset Date Comments MEDICATION REFILL 09/08/2018 Encounter Details Date Type Department Care Team (Late st Contact Info) Description 09/08/2018 Refill [facility] End[facility]ology [address] [facility] [place] [address] Edmond Choi MD [address] [facility] [address] 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
== END 2024-07-21 07:32 | disposition home or self-care (01) ==
PROVIDERS: PCP Physician Assistant; Visit Provider Physician Assistant
DX: R26.0 Ataxic gait (principal)
CPT/HCPCS: 99199

== ENCOUNTER 2024-07-27 13:46 | Outpatient (CLI) | payer OTHER, SELFPAY ==
--- NOTE | ~2024-07-27 | XR_ITS ---
4 VIEWS SKULL Ordering provider: Braydon Pavon, PA History: . Foreign body-MRI CLEARANCE,BB NEAR NOSE X40 YEARS . Comparison: None. FINDINGS: BONES: No fracture. Hyperostosis frontalis interna. RADIO OPAQUE FOREIGN BODY: Seen in the soft tissues in the area of the left maxillary sinus. SOFT TISSUES: Normal. IMPRESSION: Normal study. Radiopaque foreign body projected in the soft tissues over the left maxillary sinus. Reviewed, dictated and finalized at location A. IMPRESSION: Normal study. Radiopaque foreign body projected in the soft tissues over the left maxillary s inus.
--- OUTSIDE RECORDS SUMMARY | 2024-07-27 14:54 | XMS_ITS | Clinical Summary ---
Author Organization [facility] Address [address] Valenzuelan: Epic Prelude ADT [place] [address] Care Team Providers Care Internet Researcher Name Role Phone Carlos Mcdonnell DO Primary Care Provider Unava ilable Allergies No known active allergies Medications No known medications Encounters Date Type Department Care Team Description 06/30/2024 8:59 PM ABORIGINAL LIAISON OFFICER - 06/30/2024 11:11 PM ABORIGINAL LIAISON OFFICER Emergency [facility] [address] [place] [address] Gerry Caal DO Encounter for [...] on file Legal Sex Male 6:23 AM ABORIGINAL LIAISON OFFICER Gender Identity Not on file Sexual Orientation Not on file Last Filed Vital Signs Vital Sign Reading Time Taken Comments Blood Pressure 147/78 06/30/2024 10:10 PM ABORIGINAL LIAISON OFFICER Pulse 89 06/30/2024 10:55 PM ABORIGINAL LIAISON OFFICER Temperature 36.4 C (97.5 F) 06/30/2024 5:45 PM ABORIGINAL LIAISON OFFICER Respiratory Rate 13 06/30/2024 10:55 PM ABORIGINAL LIAISON OFFICER Oxygen Saturation 96% 06/30/2024 10:55 PM ABORIGINAL LIAISON OFFICER Inhaled Oxygen Concentration - - Weight - [...] Diagnosis Comments LIPASE Stat 06/30/2024 9:40 PM ABORIGINAL LIAISON OFFICER COMPREHENSIVE METABOLIC PANEL Stat 06/30/2024 9:40 PM ABORIGINAL LIAISON OFFICER VERIFICATION BLOOD GROUP Stat 06/30/2024 9:39 PM ABORIGINAL LIAISON OFFICER Encounter for blood typing PROTIME-INR Stat 06/30/2024 9:39 PM ABORIGINAL LIAISON OFFICER EXTRA TUBE (BLUE) Stat 06/30/2024 9:3 9 PM ABORIGINAL LIAISON OFFICER EXTRA TUBE Stat 06/30/2024 9:39 PM ABORIGINAL LIAISON OFFICER TYPE AND SCREEN Stat 06/30/2024 6:10 PM ABORIGINAL LIAISON OFFICER CBC WITH DIFFERENTIAL Stat 06/30/2024 6:10 PM ABORIGINAL LIAISON OFFICER from Last 3 Months Results * LIPASE (06/30/2024 9:40 PM ABORIGINAL LIAISON OFFICER) Pathologist [facility] LIPASE 17 13 - 60 U/L 06/30/2024 10:40 PM ABORIGINAL LIAISON OFFICER [facility] Blood Venipuncture / Unknown 06/30/2024 9:40 PM ABORIGINAL LIAISON OFFICER 06/30/2024 10:08 PM ABORIGINAL LIAISON OFFICER Gerry Caal DO CHEMISTRY ORDERABLES Final Resu lt [facility] CLIA# [id number] [place] [address] * (ABNORMAL) COMPREHENSIVE METABOLIC PANEL (06/30/2024 9:40 PM ABORIGINAL LIAISON OFFICER) Pathologist [facility] SODIUM 137 136 - 145 mmol/L 06/30/2024 10:47 PM [facility] POTASSIUM 4.0 3.4 - 5.1 mmol/L 06/30/2024 10:47 PM [facility] CHLORIDE 98 98 - 107 mmol/L 06/30/2024 10:47 PM [facility] CO2 25 22 - 29 mmol/L 06/30/2024 10:47 PM [facility] CALCIUM 9.8 8.6 - 10.4 mg/dL 06/30/2024 10:47 PM [facility] BUN 17 6 - 20 mg/dL 06/30/2024 10:47 PM [facility] CREATININE 0.78 0.67 - 1.17 mg/dL 06/30/2024 10:47 PM [facility] GLUCOSE 450(HH) 74 - 99 mg/dL 06/30/2024 10:47 PM [facility] TOTAL PROTEIN 7.0 6.3 - 8.7 g/dL 06/30/2024 10:47 PM [facility] ALBUMIN 3.8 3.5 - 5.2 g/dL 06/30/2024 10:47 PM [facility] BILIRUBIN TOTAL 4.0(H) 0.3 - 1.2 mg/dL 06/30/2024 10:47 PM [facility] ALKALINE PHOSPHATASE 94 40 - 150 U/L 06/30/2024 10:47 PM [facility] AST 24 0 - 41 U/L 06/30/2024 10:47 PM [facility] ALT 13 0 - 41 U/L 06/30/2024 10:47 PM [facility] GFR >60 >=60 mL/min/1.7 3 sq meter 06/30/2024 10:47 PM [facility] Comment:eGFR calculated with 2020 CKD-EPI equation. Vegetarian diet, extremely high or low muscle mass, and may affect results. Cystatin C with Glomerular Filtration Rate is a suitable alternative for these patients. ANION GAP 14 8 - 16 mmol/L 06/30/2024 10:47 PM [facility] Blood Venipuncture / Unknown 06/30/2024 9:40 PM ABORIGINAL LIAISON OFFICER 06/30/2024 10:08 PM ABORIGINAL LIAISON OFFICER Gerry Caal DO CHEMISTRY ORDERABLES Final Resu lt Performing Organization Address [facility]/ZIP Co de Phone Number [facility] CLIA# [id number] [place] [address] * EXTRA TUBE (BLUE) (06/30/2024 9:39 PM ABORIGINAL LIAISON OFFICER) Blood Venipuncture / Unknown 06/30/2024 9:39 PM ABORIGINAL LIAISON OFFICER 06/30/2024 10:57 PM ABORIGINAL LIAISON OFFICER Gerry Caal DO HEMATOLOGY ORDERABLES Final Res ult [facility] CLIA# [id number] [address] [place] [address] * VERIFICATION BLOOD GROUP (06/30/2024 9:39 PM ABORIGINAL LIAISON OFFICER) ABO GROUP A 06/30/2024 11:11 PM ABORIGINAL LIAISON OFFICER [facility] RH (D) TYPE Positive 06/30/2024 11:11 PM ABORIGINAL LIAISON OFFICER [facility] Blood Venipuncture / Unknown 06/30/2024 9:39 PM ABORIGINAL LIAISON OFFICER 06/30/2024 10:07 PM ABORIGINAL LIAISON OFFICER Carlos Mcdonnell DO BLOOD BANK ORDERABLES Final [id number] [address] [place] [address] * (ABNORMAL) PROTIME-INR (06/30/2024 9:39 PM ABORIGINAL LIAISON OFFICER) Pathologist [facility] PROTIME 15.0(H) 11.5 - 14.7 Seconds 06/30/2024 11:05 PM ABORIGINAL LIAISON OFFICER [facility] INR 1.2(H) 0.9 - 1.1 06/30/2024 11:05 PM ABORIGINAL LIAISON OFFICER [facility] Blood Venipuncture / Unknown 06/30/2024 9:39 PM ABORIGINAL LIAISON OFFICER 06/30/2024 10:57 PM ABORIGINAL LIAISON OFFICER Gerry Caal DO HEMATOLOGY ORDERABLES Final Res ult [facility] CLIA# [id number] [address] [place] [address] * (ABNORMAL) CBC WITH DIFFERENTIAL (06/30/2024 6:10 PM ABORIGINAL LIAISON OFFICER) WBC 5.3 4.0 - 9.8 K/uL 06/30/2024 6:48 PM ABORIGINAL LIAISON OFFICER [facility] [employer] [facility] RBC 5.86(H) 4.50 - 5.40 M/uL 06/30/2024 6:48 PM [facility] HEMOGLOBIN 16.8(H) 13.6 - 16.5 g/dL 06/30/2024 6:48 PM [facility] HEMATOCRIT 48.6(H) 40.0 - 48.0 % 06/30/2024 6:48 PM [facility] MCV 82.9 82.0 - 99.0 fL 06/30/2024 6:48 PM [facility] MCH 28.7 27.2 - 32.6 pg 06/30/2024 6:48 PM [facility] MCHC 34.6 31.5 - 35.5 g/dL 06/30/2024 6:48 PM [facility] RDW 16.9(H) 11.5 - 14.5 % 06/30/2024 6:48 PM [facility] RDW-STDEV 46.3 37.1 - 48.7 fL 06/30/2024 6:48 PM [facility] PLATELETS 78(L) 140 - 350 K/uL 06/30/2024 6:48 PM [facility] MPV 06/30/2024 6:48 PM [facility] Comment:Parameter not availa ble NEUTROPHILS 70 % 06/30/2024 6:48 PM [facility] LYMPHOCYTES 16 % 06/30/2024 6:48 PM [facility] MONOCYTES 9 % 06/30/2024 6:48 PM [facility] EOSINOPHILS 3 % 06/30/2024 6:48 PM [facility] BASOPHILS 1 % 06/30/2024 6:48 PM [facility] IMMATURE GRANULOCYTES 1 % 06/30/2024 6:48 PM [facility] Comment:IG (Immature Granulo cyte) count includes Metamyelocytes, Myelocytes, and Promyelocytes NEUTROPHIL ABSOLUTE 3.73 1.90 - 7.00 K/uL 06/30/2024 6:48 PM [facility] LYMPHOCYTE ABSOLUTE 0.86 0.70 - 4.50 K/uL 06/30/2024 6:48 PM ABORIGINAL LIAISON OFFICER [facility] MONOCYTE ABSOLUTE 0.47 0.10 - 1.30 K/uL 06/30/2024 6:48 PM ABORIGINAL LIAISON OFFICER [facility] EOSINOPHIL ABSOLUTE 0.18 0.00 - 0.70 K/uL 06/30/2024 6:48 PM ABORIGINAL LIAISON OFFICER [facility] BASOPHILS ABSOLUTE 0.07 0.00 - 0.20 K/uL 06/30/2024 6:48 PM ABORIGINAL LIAISON OFFICER [facility] IMMATURE GRANULOCYTES ABSOLUTE 0.03 0.00 - 0.03 K/uL 06/30/2024 6:48 PM ABORIGINAL LIAISON OFFICER [facility] Blood Venipuncture / Unknown 06/30/2024 6:10 PM ABORIGINAL LIAISON OFFICER 06/30/2024 6:40 PM ABORIGINAL LIAISON OFFICER Gerry Caal DO HEMATOLOGY ORDERABLES Final Res ult [facility] CLIA# [id number] [address] [place] [address] * TYPE AND SCREEN (06/30/2024 6:10 PM ABORIGINAL LIAISON OFFICER) ABO GROUP A 06/30/2024 7:40 PM ABORIGINAL LIAISON OFFICER [facility] RH (D) TYPE Positive 06/30/2024 7:40 PM ABORIGINAL LIAISON OFFICER [facility] ANTIBODY SCREEN Negative 06/30/2024 7:40 PM ABORIGINAL LIAISON OFFICER [facility] Blood Venipuncture / Unknown 06/30/2024 6:10 PM ABORIGINAL LIAISON OFFICER 06/30/2024 6:31 PM ABORIGINAL LIAISON OFFICER Gerry Caal DO BLOOD BANK ORDERABLES Edited Re sult - Final [facility] CLIA# [id number] [address] [place] [address] from Last 3 Months Insurance [facility] MEDICAID Care Teams Internet Researcher Relationship Specialty Start Date End Date Carlos Mcdonnell DO PCP - General 11/18/07
--- OUTSIDE RECORDS SUMMARY | 2024-07-27 14:55 | XMS_ITS | Encounter Summary ---
Author Organization [facility] Address [facility] [facility] [place] [address] Care Team Providers Care Circular Knife Machine Cutter Name Role Phone Braydon Pavon Primary Care Provider [phone] Nikolay Lancaster MD Primary Care Provider [phone] Braydon Pavon Primary Care Provider [phone] Reason for Visit * Reason Onset Date Comments MEDICATION REFILL 09/08/2018 Encounter Details Date Type Department Care Team (Late st Contact Info) Description 09/08/2018 Refill [facility] 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
--- OUTSIDE RECORDS SUMMARY | 2024-07-27 14:55 | XMS_ITS | Encounter Summary ---
Author Organization [facility] Address [address] [place] [address] Care Team Providers Care Insurance Account Executive Name Role Phone Braydon Pavon Primary Care Provider [phone] Nikolay Lancaster MD Unavailable [phone] Simon Lundberg MD Primary Care Provider [phone] Nacho Rodriguez MD Unavailable [phone] Elian Gross MD Unavailable Braydon Pavon Primary Care Provider [phone] Encounter Details Date Type Department Care Team (Late st Contact Info) Description 10/05/2020 Telephone [facility] [address], [place] [id number] Trice Aldana, RT Social History Tobacco Use [...] on file 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 Gender Identity Male 10/29/2020 12:37 PM CDT Sexual Orientation Straight 10/29/2020 12 :37 PM CDT documented as of this encounter Plan of Treatment Not on file documented as of this encounter Visit Diagnoses Not on filedocumented in this encounter Care Teams Insurance Account Executive Relationship Specialty Start Date End Date Braydon Pavon PA [address] [place] [address] PCP - General Family Practice 05/09/20 05/19/21 Simon Lundberg MD [address] [place] [address] PCP - General Family Medicine 05/20/21 08/22/21 Braydon Pavon PA [address] [place] [address] PCP - General 08/23/21 Nikolay Lancaster MD [address] [place] [address] 05/09/20 05/19/21 [place] [id number] [address] [facility] [address] [address] Consulting Physician Endocrinology 05/20/21 [place] [address] [address] [facility] [address] [place] [address] Consulting Physician Internal Medicine 05/20/21 documented as of this encounter
--- OUTSIDE RECORDS SUMMARY | 2024-07-27 14:55 | XMS_ITS | Referral Summary ---
Author Organization [facility] Address [address] [place] [address] Care Team Providers Care Service Person Name Role Phone Nacho Rodriguez MD Unavailable [phone] Elian Gross MD Unavailable Braydon Pavon Primary Care Provider [phone] Encounters Date Type Department Care Team Description 07/06/2024 Documentation [facility] [address] [facility] [address]th [place] [address] [place] [address] Sean Rodas RN 07/05/2024 Results Follow-Up [facility] [address] [facility] 12th [place] [address] [place] [address] Nilton Whatley MD 07/05/2024 9:40 AM LIVERY CAR DRIVER - 07/05/2024 11:59 PM LIVERY CAR DRIVER Hospital Encounter [facility] [address] [place] [id number] Hepatic cirrhosis, unspecified hepatic cirrhosis type, unspecified whether ascites present (HCC) Discharge Disposition: Discharge to home or self care 06/02/2024 8:55 AM LIVERY CAR DRIVER Lab [facility]) [address] [place] [id number] Hepatic cirrhosis, unspecified hepatic cirrhosis type, unspecified whether ascites present (HCC) 06/02/2024 8:00 AM LIVERY CAR DRIVER Office Visit [facility] [address] 12th [place] [address] [place] [id number] Nilton Whatley MD Hepatic cirrhosis, unspecified hepatic [...] 1 each 05/21/19 22 Active Dexcom G6 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 Use to [...] 05/20/2021 Assessment & Plan (05/22/2021 3:58 PM LIVERY CAR DRIVER): A initial well visit to establish care [...] unless otherwise indicated. Need follow-up arranged with laborer chicken farm, ordnance technician Planning on referral to painter maintenance Will need to check in to the tips follow-up Labs as ordered today, I will direct the A1 c to his ordnance technician's office. Continuing the current regimen for now. Blood pressure is controlled at this time. We may need to try to get the stress test done as well. Screen for colon cancer 03/01/2021 Overview (03/01/2021): Added automatically from request for surgery [id number] Diabetic neuropathy associat ed with type 2 diabetes mellitus 10/29/2020 Assessment & Plan (10/29/2020 4:23 PM CDT): Chronic, worsening Start, gabapentin therapy Work on better diabetic control Vitamin D deficiency 10/29/2020 Assessment & Plan (10/29/2020 4:23 PM CDT): Check labs and based on that for the plans Bacterial endocarditis 05/14/2020 Assessment & Plan (05/14/2020 11:09 AM LIVERY CAR DRIVER): Unfortunately the patient's records from [facility] are not available for my review. We [...] 05/14/2020 Assessment & Plan (05/14/2020 11:11 AM LIVERY CAR DRIVER): The patient's dyspnea on exertion is likely [...] - follow up in 6 weeks with TEST RACK OPERATOR Chelsea Driscoll ( to discuss about insulin [...] resume home regimen and follow-up with home ordnance technician MATHEUS pain 10/11/2017 Morbid obesity 12/09/2016 TRACY [...] on file Legal Sex Male 2:52 PM LIVERY CAR DRIVER Gender Identity Male 10/29/2020 12:37 PM CDT Sexual Orientation Straight 10/29/2020 12 :37 PM CDT Last Filed Vital Signs Vital Sign Reading Time Taken Comments Blood Pressure 117/76 06/02/2024 7:36 AM LIVERY CAR DRIVER Pulse 88 06/02/2024 7:36 AM LIVERY CAR DRIVER Temperature 36.7 C (98.1 F) 06/02/2024 7:36 AM LIVERY CAR DRIVER Respiratory Rate 17 01/20/2024 12:0 0 PM CDT Oxygen Saturation 92% 06/02/2024 7:36 AM LIVERY CAR DRIVER Inhaled Oxygen Concentration - - Weight 103.1 kg (227 lb 6.4 oz) 06/02/2024 7:36 AM LIVERY CAR DRIVER Height 172.7 cm (5' 8 ) 11/23/2023 7:53 AM CDT Body Mass Index 34.58 11/23/2023 7:53 AM CDT Plan of Treatment Not on file Medical Devices Implanted Type Area Sleeve Setter Lockstitch Device Identifier Shelf Expiration Date Model / Serial / Lot [employer] Peripheral Vascular [id number] Lifestar 14mm 60mm 80cm Stent Biliary - [id number] Implanted:Qty: 1 on 01/10/2021 at [facility] [employer] 09/15/2023 [id number] / / [id number] Procedures Procedure Name Priority Date/Time Associated Diagnosis Comments US LIVER W COMPLETE DOPPLER Schedule Routine, Read Routine (OP Routine) 07/05/2024 11:25 AM LIVERY CAR DRIVER Hepatic cirrhosis, unspecified hepatic cirrhosis type, unspecified whether ascites present (HCC) EGFR Routine 06/02/2024 8:48 AM LIVERY CAR DRIVER Hepatic cirrhosis, unspecified hepatic cirrhosis type, unspecified whether ascites present (HCC) COMPREHENSIVE METABOLIC PANEL Routine 06/02/2024 8:48 AM LIVERY CAR DRIVER Hepatic cirrhosis, unspecified hepatic cirrhosis type, unspecified whether ascites present (HCC) PROTIME-INR Routine 06/02/2024 8:48 AM LIVERY CAR DRIVER Hepatic cirrhosis, unspecified hepatic cirrhosis type, unspecified whether ascites present (HCC) [id number], TUMOR MARKER Routine 06/02/2024 8:48 AM LIVERY CAR DRIVER Hepatic cirrhosis, unspecified hepatic cirrhosis type, unspecified whether ascites present (HCC) BILIRUBIN, DIRECT Routine 06/02/2024 8:4 8 AM LIVERY CAR DRIVER Hepatic cirrhosis, unspecified hepatic cirrhosis type, unspecified whether ascites present (HCC) HEMOGLOBIN A1C STAT 11/23/2023 8:40 AM CDT LIPID PANEL Routine 05/20/2021 9:36 AM LIVERY CAR DRIVER Morbid obesity with body mass index (BMI) of 40.0 to 44.9 in adult (HCC) ALBUMIN CREATININE RATIO, URINE Routine 05/20/2021 9:36 AM LIVERY CAR DRIVER Diabetic neuropathy associated with type 2 diabetes mellitus (HCC) COLONOSCOPY 12/17/2020 10:24 AM CDT SERUM HEPATITIS PANEL Routine 08/23/2015 5:23 PM CDT from Last 3 Months or Most Recently Relevant to Health Maintenance Results * US Liver W Complete Doppler (C) (07/05/2024 11:25 AM LIVERY CAR DRIVER) Anatomical Region Laterality Modality Abdomen N/A Ultrasound 07/05/2024 11:3 7 AM LIVERY CAR DRIVER Impressions 07/05/2024 11:57 AM LIVERY CAR DRIVER 1. Sonographic features of cirrhosis. 2. US [...] Maurice Paul M.D. Narrative 07/05/2024 11:57 AM LIVERY CAR DRIVER EXAMINATION: 1. LIVER SONOGRAM 2. LIVER DOPPLER [...] Re sult * eGFR (06/02/2024 8:48 AM LIVERY CAR DRIVER) eGFR >90 >=60 mL/min/1. 73 m2 Comment: [...] last reviewed 2021. Blood 06/02/2024 8:48 AM LIVERY CAR DRIVER 06/02/2024 9:05 AM LIVERY CAR DRIVER us Nilton Whatley MD LAB BLOOD ORDERABLES Final Result [facility] Department [place] [address] * [id number], Tumor Marker (06/02/2024 8:48 AM LIVERY CAR DRIVER) alpha Fetoprotein <2.0 <=8.3 ng/mL Comment: Interpretive [...] 2018;[id number] Jeyson Sanches et al. Clin Chem 2014;[id number]. Current interpretive data was last revised 2022. Blood 06/02/2024 8:48 AM LIVERY CAR DRIVER 06/02/2024 9:00 AM LIVERY CAR DRIVER us Nilton M. Korenblat MD LAB BLOOD ORDERABLES Final Result [facility] Department [place] [address] * (ABNORMAL) Protime-INR (06/02/2024 8:48 AM LIVERY CAR DRIVER) PT 13.5(H) 9.7 - 13.0 sec INR 1.24(H) 0.90 - 1.20 [facility] Comment: Interpretive data Oral anticoagulant therapeutic ranges: Venous thromboembolism prophylaxis or treatment: 2.0-3.0 CARDIOLOGY Standard range: 2.0-3.0 High-intensity range: 2.5-3.5 Refer to indication-specific guidelines for appropriate target ranges for prosthetic heart valve replacement. Current interpretive data was last revised on 2019. Blood 06/02/2024 8:48 AM LIVERY CAR DRIVER 06/02/2024 9:00 AM LIVERY CAR DRIVER us Nilton Whatley MD LAB BLOOD ORDERABLES Final Result Performing Organization Address [facility] Co de Phone Number [facility] [place] [place] [address] * (ABNORMAL) Bilirubin, direct (06/02/2024 8:48 AM LIVERY CAR DRIVER) Pathologist [facility] Bilirubin, direct 0.6(H) 0.1 - 0.3 mg/dL Comment:Hemolyzed; result ma y be falsely decreased Blood 06/02/2024 8:48 AM LIVERY CAR DRIVER 06/02/2024 9:00 AM LIVERY CAR DRIVER us Nilton Whatley MD LAB BLOOD ORDERABLES Final Result Performing Organization Address City/State/[facility] Co de Phone Number [facility] [place] [address] * (ABNORMAL) Comprehensive metabolic panel (06/02/2024 8:48 AM LIVERY CAR DRIVER) Pathologist [facility] Sodium 141 135 - 145 mmol/L Potassium, pl 4.3 3.3 - 4.9 mmol/L [facility] Comment:Hemolyzed; Potassium value may be falsely elevated by as much as 0.3-0.5 mmol/L. Suggest redraw and reanalysis. Chloride 107 97 - 110 mmol/L [facility] CO2 27 22 - 32 mmol/L [facility] Anion gap 7 2 - 15 mmol/L [facility] BUN 13 6 - 25 mg/dL [facility] Creatinine 0.76(L) 0.80 - 1.30 mg/dL [facility] Glucose 242(H) 70 - 199 mg/dL [facility] Comment: Interpretive Data Fasting glucose >/= [...] 2022. Calcium 9.6 8.5 - 10.3 mg/dL [facility] Bilirubin, total 3.0(H) 0.1 - 1.2 mg/dL [facility] Protein, pl 6.9 6.5 - 8.5 g/dL [facility] Albumin 3.8 3.5 - 5.0 g/dL [facility] Alk phos 90 40 - 130 Units/L [facility] ALT 19 7 - 55 Units/L [facility] AST 38 10 - 50 Units/L [facility] Comment:Hemolyzed; result ma y be falsely elevated Blood 06/02/2024 8:48 AM LIVERY CAR DRIVER 06/02/2024 9:00 AM LIVERY CAR DRIVER Nilton Whatley MD LAB BLOOD ORDERABLES Final Result [facility] [place] [address] * Albumin Creatinine Ratio, Urine (05/20/2021 9:36 AM LIVERY CAR DRIVER) Albumin Ur <12.0 mg/L [facility] Comment: Interpretive Data No reference range established. Current interpretive data was last revised 2018. Creatinine Ur 47.6 mg/dL [facility] Comment: Interpretive Data No reference range established. Current interpretive data was last revised 2018. Albumin Creatinine Ratio, Ur <25 1 - 29 mg/g [facility] Urine 05/20/2021 9:36 AM LIVERY CAR DRIVER 05/20/2021 7:41 PM LIVERY CAR DRIVER us Simon Lundberg MD LAB URINE ORDERABLES Final Result [facility] [address] [place] [address] * (ABNORMAL) Lipid panel (05/20/2021 9:36 AM LIVERY CAR DRIVER) Cholesterol 110 30 - 199 mg/dL [facility] [...] ratio 3 [facility] Blood 05/20/2021 9:36 AM LIVERY CAR DRIVER 05/20/2021 7:41 PM LIVERY CAR DRIVER us Simon Lundberg MD LAB BLOOD ORDERABLES Final Result Performing Organization Address City/[place] [address] [facility] Department [place] [address] * COLONOSCOPY (12/17/2020 10:24 AM CDT) Anatomical Region Laterality Modality Other Narrative Procedure Note Elian Gross MD - 12/17/2020 10:24 AM CDT ENDOSCOPY LAB Patient Name: Camilo Curry Procedure Date: 12/17/2020 10:24 AM Date of : 1970 Admit Type: Outpatient Age: 50 Gender: Male Attending MD: Elian Vivar M.D. Room: [facility] ENDOSCOPY ROOM 02 Note Status: Finalized Procedure: [...] the physician, the nurse, the anesthesiologist, the quickbooks bookkeeper and thetechnician in the pre-procedure area in [...] The scope was passed under direct vision.The [id number] was introduced through the anusand advanced to the hepatic flexure. The colonoscopywas performed without difficulty. The patient tolerated the procedure well. The quality of the bowel preparation was unsatisfactory. The quality of the bowel preparation was evaluated using the BBPS(Manning Bowel Preparation Scale) with scores of: RightColon [...] 12/17/2020 10:24 AM Elian Draper MD ENDOSCOPY PA OCEDURES Final Result * Serum Hepatitis panel (08/23/2015 5:23 PM CDT) HBV surface ag Negative NEG HISTO RICAL RESULTS HCV ab Negative NEG HISTORICAL RESULTS Comment: Interpretive Data If confirmation is required, call Laboratory Customer Service to request sample to be sent to [facility] for Hepatitis C Virus (HCV) RNA Detection and Quantitation by Real-Time Reverse Antisqueak Applier-PCR (RT-PCR). Current interpretive data was last revised [...] Most Recently Relevant to Health Maintenance [facility] [place] Advance Directives For more information, please contact: [phone] * Full Code (Latest Code Status on [...] 11:57 AM 02/03/2018 5:26 AM Care Teams Service Person Relationship Specialty Start Date End Date Braydon Pavon PA [address] [place] [address] PCP - General 08/23/21 [place] [id number] [address] [facility] [address], [place] [address] Consulting Physician Endocrinology 05/20/21 [place] [address] [address] [facility] [address], [place] [address] Consulting Physician Internal Medicine 05/20/21
--- OUTSIDE RECORDS SUMMARY | 2024-07-27 14:55 | XMS_ITS | Data Portability ---
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 Plan of Treatment Reminders Order Date Submit Date Provider Last Modified By Organization Details Last Modified Time Details Appointments None recorded. Lab urinalysis , dipstick 2023 024 [facility] In-Office Order, Internal Use Only DO Not Attach Compendium DO Not Attach Compendium, Do Not Delete/merge, [id number] 10:17:29 Referral neurologis t referral 2024 025 [facility], [address], [address], 5 19:30:41 Procedures None recorded. Surgeries None recorded. Imaging MRI, brain, w/o contrast 2024 025 [facility], [address] [place], [address], 5 13:13:10 MRI, lumbar spine, w/o contrast 2023 024 [facility], [address] [place], [address], 4 07:55:02 Medication Orders None recorded. Patient TargetsNo targets recorded. Patient Instructions Encounter Date Encounter Id Patient Instructions Last Modified By Organization Details Last Modified Time 03/03/2024 [id number] A healthy lifestyle: care instructions jnanney Not available 03/03/2024 11:27:32 03/08/2024 [id number] A healthy lifestyle: care instructions jnanney Not available 03/08/2024 15:26:42 type 2 diabetes: care instructions jnanney Not available 03/08/2024 15:26:42 03/23/2024 [id number] A healthy lifestyle: care instructions jnanney Not available 03/23/2024 11:17:48 type 2 diabetes: care instructions jnanney Not available 03/23/2024 11:17:48 04/06/2024 [id number] painful urinatio n (dysuria): care instructions jnanney Not available 04/06/2024 10:11:20 When You Want to Lose Weight: Care Instructions jnanney Not available 04/06/2024 10:27:46 type 2 diabetes: care instructions jnanney Not available 04/06/2024 10:27:46 06/28/2024 [id number] coughing up blood: care instructions jnanney Not [...] DO Not Attach Compendium, Do Not Delete/merge, [id number] 04/06/2024 10:08:18 04/06/20 24 04/06/2024 urina lysis , dipst ick Nitrite negati ve Not Available In-Office Order Internal Use Only DO Not Attach Compendium DO Not Attach Compendium, Do Not Delete/merge, [id number] 04/06/2024 10:08:18 04/06/20 24 04/06/2024 urina lysis , dipst ick Urobilinogen .2 Not Available In-Of fice Order Internal Use Only DO Not Attach Compendium DO Not Attach Compendium, Do Not Delete/merge, [id number] 04/06/2024 10:08:18 04/06/20 24 04/06/2024 urina lysis , dipst ick Protein Negati ve Not Available In-Office Order Internal Use Only DO Not Attach Compendium DO Not Attach Compendium, Do Not Delete/merge, [id number] 04/06/2024 10:08:18 04/06/20 24 04/06/2024 urina lysis , dipst ick pH 6.0 Not Available In-Office Order Internal Use Only DO Not Attach Compendium DO Not Attach Compendium, Do Not Delete/merge, [id number] 04/06/2024 10:08:18 04/06/20 24 04/06/2024 urina lysis , dipst ick Blood Negati ve Not Available In-Office Order Internal Use Only DO Not Attach Compendium DO Not Attach Compendium, Do Not Delete/merge, [id number] 04/06/2024 10:08:18 04/06/20 24 04/06/2024 urina lysis , dipst ick Specific [place] 1.015 Not Available In-Off ice Order Internal Use Only DO Not Attach Compendium DO Not Attach Compendium, Do Not Delete/merge, [id number] 04/06/2024 10:08:18 04/06/20 24 04/06/2024 urina lysis , dipst ick Ketone Trace Not Available In-Office Order Internal Use Only DO Not Attach Compendium DO Not Attach Compendium, Do Not Delete/merge, [id number] 04/06/2024 10:08:18 04/06/20 24 04/06/2024 urina lysis , dipst ick Bilirubin Negati ve Not Available In-Office Order Internal Use Only DO Not Attach Compendium DO Not Attach Compendium, Do Not Delete/merge, [id number] 04/06/2024 10:08:18 04/06/20 24 04/06/2024 urina lysis , dipst ick Glucose 1000 Not Available In-Office Order Internal Use Only DO Not Attach Compendium DO Not Attach Compendium, Do Not Delete/merge, [id number] 04/06/2024 10:08:18 04/06/20 24 04/06/2024 urina lysis , dipst ick Appearance Clear Not Available In-Offi ce Order Internal Use Only DO Not Attach Compendium DO Not Attach Compendium, Do Not Delete/merge, [id number] 04/06/2024 10:08:18 04/06/20 24 04/06/2024 urina lysis , dipst ick Color Yellow Not Available In-Office Order Internal Use Only DO Not Attach Compendium DO Not Attach Compendium, Do Not Delete/merge, [id number] 04/06/2024 10:08:18 06/08/19 25 06/09/2024 Gluco se [Mass /volu me] in Arter ial blood glucose [mass/volume ] in capillary blood by glucometer 241 mg/dL low: 70mg/d Lhigh: 99mg/d L high Gluco se WB/PO C 241 (H) 70 - 99 mg/dL 06/09 8:24 AM 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 [facility] Not Available Not Available 06/28/2024 17:40:48 06/08/1906/09/2024 Gluco se [Mass /volu me] in Arter ial blood specimen source identified Cap Finger stick Speci men Type Cap Finge rstic k 06/09 8:24 AM 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 [facility] Not Available Not Available [...] 1.6 - 2.6 mg/dL 06/08 5:17 PM 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 [facility] Not Available Not Available [...] 70 - 99 mg/dL 06/08 5:17 PM 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 [facility] Not Available Not Available 06/28/2024 17:40:48 06/08/1906/08/2024 Compr ehens chetna metab olic 1999 panel - Serum or Plasm a sodium [moles/volum e] in serum or plasma 135 mmol/ L low: 136mmo l/Lhig h: 145mmo l/L low Sodiu m 135 (L) 136 - 145 mmol/ L 06/08 5:17 PM 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 [facility] Not Available Not Available 06/28/2024 17:40:48 06/08/1906/08/2024 Compr ehens chetna metab olic 1999 panel - Serum or Plasm a potassium [moles/volum e] in serum or plasma 3.9 mmol/ L low: 3.5mmo l/Lhig h: 5.1mmo l/L Potas sium 3.9 3.5 - 5.1 mmol/ L 06/08 5:17 PM 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 [facility] Not Available Not Available 06/28/2024 17:40:48 06/08/19 25 06/08/2024 Compr ehens chetna metab olic 1999 panel - Serum or Plasm a chloride [moles/volum e] in serum or plasma 104 mmol/ L low: 98mmol /Lhigh : 107mmo l/L Chlor james 104 98 - 107 mmol/ L 06/08 5:17 PM 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 [facility] Not Available Not Available 06/28/2024 17:40:48 06/08/19 25 06/08/2024 Compr ehens chetna metab olic 1999 panel - Serum or Plasm a carbon dioxide, total [moles/volum e] in serum or plasma 24 mmol/ L low: 22mmol /Lhigh : 29mmol /L CO2 24 22 - 29 mmol/ L 06/08 5:17 PM 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 [facility] Not Available Not Available 06/28/2024 17:40:48 06/08/19 25 06/08/2024 Compr ehens chetna metab olic 1999 panel - Serum or Plasm a calcium [mass/volume ] in serum or plasma 8.1 mg/dL low: 8.4mg/ dLhigh : 10.4mg /dL low Calci um 8.1 (L) 8.4 - 10.4 mg/dL 06/08 5:17 PM 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 [facility] Not Available Not Available 06/28/2024 17:40:48 06/08/19 25 06/08/2024 Compr ehens chetna metab olic 1999 panel - Serum or Plasm a anion gap in blood 7 mmol/ L low: 6mmol/ Lhigh: 16mmol /L Anion Gap 7 6 - 16 mmol/ L 06/08 5:17 PM 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 [facility] Not Available Not Available 06/28/2024 17:40:48 06/08/19 25 06/08/2024 Compr ens chetna metab olic 1999 panel - Serum or Plasm a urea nitrogen [mass/volume ] in serum or plasma 16 mg/dL low: 7mg/dL high: 26mg/d L BUN 16 7 - 26 mg/dL 06/08 5:17 PM 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 [facility] Not Available Not Available 06/28/2024 17:40:48 06/08/19 25 06/08/2024 Compr Animailens chetna metab olic 1999 panel - Serum or Plasm a creatinine [mass/volume ] in serum or plasma 0.88 mg/dL low: 0.72mg /dLhig h: 1.25mg /dL Creat inine 0.88 0.72 - 1.25 mg/dL 06/08 5:17 PM 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 [facility] Not Available Not Available 06/28/2024 17:40:48 06/08/19 25 06/08/2024 Compr ehens chetna metab olic 2000 panel - Serum or Plasm a alkaline phosphatase [enzymatic activity/vol ume] in serum or plasma 71 U/L low: 40U/Lh igh: 150U/L Alkal ine Phosp hatas e 71 40 - 150 U/L 06/08 5:17 PM 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 [facility] Not Available Not Available 06/28/2024 17:40:48 06/08/1906/08/2024 Compr ehens chetna metab olic 2000 panel - Serum or Plasm a alanine aminotransfe rase [enzymatic activity/vol ume] in serum or plasma 13 U/L low: 0U/Lhi gh: 55U/L ALT 13 0 - 55 U/L 06/08 5:17 PM 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 [facility] Not Available Not Available 06/28/2024 17:40:48 06/08/19 25 06/08/2024 Compr ehens chetna metab olic 2000 panel - Serum or Plasm a aspartate aminotransfe rase [enzymatic activity/vol ume] in serum or plasma 20 U/L low: 5U/Lhi gh: 34U/L AST 20 5 - 34 U/L 06/08 5:17 PM 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 [facility] Not Available Not Available 06/28/2024 17:40:48 06/08/19 25 06/08/2024 Compr Animailens chetna metab olic 1999 panel - Serum or Plasm a protein [mass/volume ] in serum or plasma 5.7 text: 6.4 - 8.3 gm/dL low Prote in Total 5.7 (L) 6.4 - 8.3 gm/dL 06/08 5:17 PM 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 [facility] Not Available Not Available 06/28/2024 17:40:48 06/08/19 25 06/08/2024 Compr Animailens chetna metab olic 2000 panel - Serum or Plasm a albumin [mass/volume ] in serum or plasma 2.9 text: 3.4 - 5.0 gm/dL low Album in 2.9 (L) 3.4 - 5.0 gm/dL 06/08 5:17 PM 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 [facility] Not Available Not Available 06/28/2024 17:40:48 06/08/19 25 06/08/2024 Compr Animailens chetna metab olic 2000 panel - Serum or Plasm a bilirubin.to kathi [mass/volume ] in serum or plasma 3 mg/dL low: 0.2mg/ dLhigh : 1.2mg/ dL high Bilir ubin Total 3.0 (H) 0.2 - 1.2 mg/dL 06/08 5:17 PM 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 [facility] Not Available Not Available 06/28/2024 17:40:48 06/08/1906/08/2024 Compr ehens chetna metab olic 2000 panel - Serum or Plasm a glomerular filtration rate/1.73 sq M.predicted [volume rate/area] in serum, plasma or blood by creatinine-b ased formula (CKD-epi 2020) text: >=90 mL/min /1.73 m2 eGFR by CKD-E PI >90 >=90 mL/mi n/1.7 3 m2 06/08 5:17 PM 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 [facility] Not Available Not Available 06/28/2024 [...] - 10.7 x10E9 /L 06/08 5:12 PM 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 [facility] Not Available Not Available 06/28/2024 17:40:43 06/08/1906/08/2024 CBC W Auto Diffe renti al panel - Blood erythrocytes [#/volume] in blood by automated count 5.01 text: 4.30 - 5.80 x10e12 /L RBC Count 5.01 4.30 - 5.80 x10E1 2/L 06/08 5:12 PM 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 [facility] Not Available Not Available 06/28/2024 17:40:43 06/08/1906/08/2024 CBC W Auto Diffe renti al panel - Blood hemoglobin [mass/volume ] in blood 14.8 g/dL low: 13.3g/ dLhigh : 17.5g/ dL Hemog lobin 14.8 13.3 - 17.5 g/dL 06/08 5:12 PM 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 [facility] Not Available Not Available 06/28/2024 17:40:43 06/08/1906/08/2024 CBC W Auto Diffe renti al panel - Blood hematocrit [volume fraction] of blood by automated count 42.1 % low: 38.7%h igh: 51.1% Hemat ocrit 42.1 38.7 - 51.1 % 06/08 5:12 PM 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 [facility] Not Available Not Available 06/28/2024 17:40:43 06/08/1906/08/2024 CBC W Auto Diffe easton al panel - Blood MCV [entitic volume] by automated count 84 fL low: 80fLhi gh: 98fL MCV 84.0 80.0 - 98.0 fL 06/08 5:12 PM 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 [facility] Not Available Not Available 06/28/2024 17:40:43 06/08/1906/08/2024 CBC W Auto Diffe easton al panel - Blood MCH [entitic mass] by automated count 29.5 pg low: 26.7pg high: 33.6pg MCH 29.5 26.7 - 33.6 pg 06/08 5:12 PM 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 [facility] Not Available Not Available 06/28/2024 17:40:43 06/08/1906/08/2024 CBC W Auto Diffe easton villegas panel - Blood MCHC [mass/volume ] by automated count 35.2 g/dL low: 31.7g/ dLhigh : 36.3g/ dL MCHC 35.2 31.7 - 36.3 g/dL 06/08 5:12 PM 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 [facility] Not Available Not Available 06/28/2024 17:40:43 06/08/1906/08/2024 CBC W Auto Diffe easton al panel - Blood erythrocyte distribution width [ratio] by automated count 15.9 % low: 11.3%h igh: 14.8% high RDW-C V 15.9 (H) 11.3 - 14.8 % 06/08 5:12 PM 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 [facility] Not Available Not Available 06/28/2024 17:40:43 06/08/1906/08/2024 CBC W Auto Diffe renti al panel - Blood platelets [#/volume] in blood by automated count 67 text: 150 - 420 x10e9/ L low Plate let Count 67 (L) 150 - 420 x10E9 /L 06/08 5:12 PM 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 [facility] Not Available Not Available 06/28/2024 17:40:43 06/08/1906/08/2024 CBC W Auto Diffe renti al panel - Blood platelet mean volume [entitic volume] in blood by automated count 10.4 fL low: 7.8fLh igh: 11.4fL MPV 10.4 7.8 - 11.4 fL 06/08 5:12 PM 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 [facility] Not Available Not Available 06/28/2024 17:40:43 06/08/1906/08/2024 CBC W Auto Diffe renti al panel - Blood neutrophils/ 100 leukocytes in blood by automated count 67.5 % low: 41%hig h: 74% Neutr ophil % 67.5 41.0 - 74.0 % 06/08 5:12 PM 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 [facility] Not Available Not Available 06/28/2024 17:40:43 06/08/1906/08/2024 CBC W Auto Diffe renti al panel - Blood lymphocytes/ 100 leukocytes in blood by automated count 15.4 % low: 17%hig h: 47% low Lymph ocyte % 15.4 (L) 17.0 - 47.0 % 06/08 5:12 PM 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 [facility] Not Available Not Available 06/28/2024 17:40:43 06/08/1906/08/2024 CBC W Auto Diffe renti al panel - Blood monocytes/10 0 leukocytes in blood by automated count 15.9 % low: 3%high : 11% high Monoc yte % 15.9 (H) 3.0 - 11.0 % 06/08 5:12 PM 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 [facility] Not Available Not Available 06/28/2024 17:40:43 06/08/19 25 06/08/2024 CBC W Auto Diffe renti al panel - Blood eosinophils/ 100 leukocytes in blood by automated count 0 % low: 0%high : 7% Eosin ophil % 0.0 0.0 - 7.0 % 06/08 5:12 PM 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 [facility] Not Available Not Available 06/28/2024 17:40:43 06/08/1906/08/2024 CBC W Auto Diffe renti al panel - Blood basophils/10 0 leukocytes in blood by automated count 0.7 % low: 0%high : 1.6% Basop hil % 0.7 0.0 - 1.6 % 06/08 5:12 PM 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 [facility] Not Available Not Available 06/28/2024 17:40:43 06/08/1906/08/2024 CBC W Auto Diffe renti al panel - Blood immature granulocytes /100 leukocytes in blood by automated count 0.5 % low: 0%high : 1% Immat ure Granu locyt es % 0.5 0.0 - 1.0 % 06/08 5:12 PM 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 [facility] Not Available Not Available 06/28/2024 17:40:43 06/08/1906/08/2024 CBC W Auto Diffe renti al panel - Blood neutrophils [#/volume] in blood by automated count 2.8 text: 1.60 - 7.50 x10e9/ L Neutr ophil Absol red devil 2.80 1.60 - 7.50 x10E9 /L 06/08 5:12 PM 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 [facility] Not Available Not Available 06/28/2024 17:40:43 06/08/1906/08/2024 CBC W Auto Diffe renti al panel - Blood lymphocytes [#/volume] in blood by automated count 0.64 text: 1.00 - 4.40 x10e9/ L low Lymph ocyte Absol red devil 0.64 (L) 1.00 - 4.40 x10E9 /L 06/08 5:12 PM 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 [facility] Not Available Not Available 06/28/2024 17:40:43 06/08/19 25 06/08/2024 CBC W Auto Diffe renti al panel - Blood monocytes [#/volume] in blood by automated count 0.66 text: 0.15 - 1.00 x10e9/ L Monoc yte Absol red devil 0.66 0.15 - 1.00 x10E9 /L 06/08 5:12 PM 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 [facility] Not Available Not Available 06/28/2024 17:40:43 06/08/19 25 06/08/2024 CBC W Auto Diffe renti al panel - Blood eosinophils [#/volume] in blood 0 text: 0.00 - 0.60 x10e9/ L Eosin ophil Absol red devil 0.00 0.00 - 0.60 x10E9 /L 06/08 5:12 PM 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 [facility] Not Available Not Available 06/28/2024 17:40:43 06/08/1906/08/2024 CBC W Auto Diffe renti al panel - Blood basophils [#/volume] in blood by automated count 0.03 text: 0.00 - 0.13 x10e9/ L Basop hil Absol red devil 0.03 0.00 - 0.13 x10E9 /L 06/08 5:12 PM 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 [facility] Not Available Not Available [...] 345 (H) <=100 pg/mL 06/08 5:19 PM 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 [facility] Not Available Not Available [...] 70 - 99 mg/dL 06/09 8:23 AM 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 [facility] Not Available Not Available 06/28/2024 17:40:48 06/08/19 25 06/09/2024 Gluco se [Mass /volu me] in Arter ial blood specimen source identified Cap Finger stick Speci men Type Vincent De Paz rstic k 06/09 8:23 AM 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 [facility] Not Available Not Available 06/28/2024 [...] 70 - 99 mg/dL 06/09 9:47 PM 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 [facility] Not Available Not Available 06/28/2024 17:40:48 06/09/19 25 06/09/2024 Gluco se [Mass /volu me] in Arter ial blood specimen source identified Cap Finger stick Speci men Type Vincent De Paz rstic k 06/09 9:47 PM 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 [facility] Not Available Not Available 06/28/2024 [...] 70 - 99 mg/dL 06/09 5:57 PM 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 [facility] Not Available Not Available 06/28/2024 17:40:48 06/09/19 25 06/09/2024 Gluco se [Mass /volu me] in Arter ial blood specimen source identified Cap Finger stick Speci men Type Cap Lanie rstic k 06/09 5:57 PM 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 [facility] Not Available Not Available [...] 70 - 99 mg/dL 06/09 1:54 PM 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 [facility] Not Available Not Available 06/28/2024 17:40:48 06/09/19 25 06/09/2024 Gluco se [Mass /volu me] in Arter ial blood specimen source identified Cap Finger stick Speci men Type Cap Zandra rstic k 06/09 1:54 PM 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 [facility] Not Available Not Available [...] 70 - 99 mg/dL 06/09 8:24 AM 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 [facility] Not Available Not Available 06/28/2024 17:40:48 06/09/19 25 06/09/2024 Gluco se [Mass /volu me] in Arter ial blood specimen source identified Cap Finger stick Speci men Type Cap Zandra rstic k 06/09 8:24 AM 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 [facility] Not Available Not Available [...] 70 - 99 mg/dL 06/09 8:24 AM 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 [facility] Not Available Not Available 06/28/2024 17:40:48 06/09/19 25 06/09/2024 Gluco se [Mass /volu me] in Arter ial blood specimen source identified Cap Finger stick Speci men Type Cap Lanie rstic k 06/09 8:24 AM 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 [facility] Not Available Not Available [...] - 10.7 x10E9 /L 06/09 2:37 AM 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 [facility] Not Available Not Available 06/28/2024 17:40:48 06/09/19 25 06/09/2024 CBC panel - Blood by Autom ated count erythrocytes [#/volume] in blood by automated count 4.95 text: 4.30 - 5.80 x10e12 /L RBC Count 4.95 4.30 - 5.80 x10E1 2/L 06/09 2:37 AM [facility] Not Available Not Available 06/28/2024 17:40:48 06/09/1906/09/2024 CBC panel - Blood by Autom ated count hemoglobin [mass/volume ] in blood 14.8 g/dL low: 13.3g/ dLhigh : 17.5g/ dL Hemog lobin 14.8 13.3 - 17.5 g/dL 06/09 2:37 AM 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 [facility] Not Available Not Available 06/28/2024 17:40:48 06/09/1906/09/2024 CBC panel - Blood by Autom ated count hematocrit [volume fraction] of blood by automated count 42 % low: 38.7%h igh: 51.1% Hemat ocrit 42.0 38.7 - 51.1 % 06/09 2:37 AM [facility] Not Available Not Available 06/28/2024 17:40:48 06/09/1906/09/2024 CBC panel - Blood by Autom ated count MCV [entitic volume] by automated count 84.8 fL low: 80fLhi gh: 98fL MCV 84.8 80.0 - 98.0 fL 06/09 2:37 AM [facility] Not Available Not Available 06/28/2024 17:40:48 06/09/1906/09/2024 CBC panel - Blood by Autom ated count MCH [entitic mass] by automated count 29.9 pg low: 26.7pg high: 33.6pg MCH 29.9 26.7 - 33.6 pg 06/09 2:37 AM [facility] Not Available Not Available 06/28/2024 17:40:48 06/09/1906/09/2024 CBC panel - Blood by Autom ated count MCHC [mass/volume ] by automated count 35.2 g/dL low: 31.7g/ dLhigh : 36.3g/ dL MCHC 35.2 31.7 - 36.3 g/dL 06/09 2:37 AM 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 [facility] Not Available Not Available 06/28/2024 17:40:48 06/09/1906/09/2024 CBC panel - Blood by Autom ated count erythrocyte distribution width [ratio] by automated count 15.7 % low: 11.3%h igh: 14.8% high RDW-C V 15.7 (H) 11.3 - 14.8 % 06/09 2:37 AM 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 [facility] Not Available Not Available 06/28/2024 17:40:48 06/09/1906/09/2024 CBC panel - Blood by Autom ated count platelets [#/volume] in blood by automated count 67 text: 150 - 420 x10e9/ L low Plate let Count 67 (L) 150 - 420 x10E9 /L 06/09 2:37 AM 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 [facility] Not Available Not Available 06/28/2024 17:40:48 06/09/1906/09/2024 CBC panel - Blood by Autom ated count platelet mean volume [entitic volume] in blood by automated count 11.8 fL low: 7.8fLh igh: 11.4fL high MPV 11.8 (H) 7.8 - 11.4 fL 06/09 2:37 AM [facility] Not Available Not Available 06/28/2024 17:40:48 [...] - 4.940 uIU/m L 06/09 2:56 AM 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 [facility] Not Available Not Available 06/28/2024 17:40:43 06/09/1906/09/2024 Thyro tropi n [Unit s/vol ume] in Serum or Plasm a interpretati on and review of laboratory results Normal Not Available Not Available 06/05 17:40:43 06/09/1906/09/2024 Hemog lobin A1c/H emogl obin. total in Blood hemoglobin A1C/hemoglob in.total in blood 9.1 % high: 5.7% high Hemog lobin A1c 9.1 (H) <5.7 % 06/09 2:28 AM 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 [facility] Not Available Not Available 06/28/2024 17:40:43 06/09/19 25 06/09/2024 Hemog lobin A1c/H emogl obin. total in Blood glucose mean value [mass/volume ] in blood estimated from glycated hemoglobin 214 mg/dL Estim ated [place] Gluco se 214 mg/dL 06/09 2:28 AM 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 [facility] Not Available Not Available [...] ts with Type 1 diabet es, pediat jose patien ts, or pregna nt women. Falsel [...] Not Available 17:40:43 06/09/19 25 06/09/2024 Compr Animailens chetna metab olic 1999 panel - Serum or Plasm a glucose [mass/volume ] in serum or plasma 220 mg/dL low: 70mg/d Lhigh: 99mg/d L high Gluco se 220 (H) 70 - 99 mg/dL 06/09 3:01 AM 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 [facility] Not Available Not Available 06/28/2024 17:40:42 06/09/19 25 06/09/2024 Compr Animailens chetna metab olic 2000 panel - Serum or Plasm a sodium [moles/volum e] in serum or plasma 134 mmol/ L low: 136mmo l/Lhig h: 145mmo l/L low Sodiu m 134 (L) 136 - 145 mmol/ L 06/09 3:01 AM 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 [facility] Not Available Not Available 06/28/2024 17:40:42 06/09/19 25 06/09/2024 Compr Causata chetna metab olic 2000 panel - Serum or Plasm a potassium [moles/volum e] in serum or plasma 4.2 mmol/ L low: 3.5mmo l/Lhig h: 5.1mmo l/L Potas sium 4.2 3.5 - 5.1 mmol/ L 06/09 3:01 AM 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 [facility] Not Available Not Available 06/28/2024 17:40:42 06/09/19 25 06/09/2024 Compr Animailens chetna metab olic 2000 panel - Serum or Plasm a chloride [moles/volum e] in serum or plasma 104 mmol/ L low: 98mmol /Lhigh : 107mmo l/L Chlor james 104 98 - 107 mmol/ L 06/09 3:01 AM 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 [facility] Not Available Not Available 06/28/2024 17:40:42 06/09/19 25 06/09/2024 Compr ehens chetna metab olic 1999 panel - Serum or Plasm a carbon dioxide, total [moles/volum e] in serum or plasma 21 mmol/ L low: 22mmol /Lhigh : 29mmol /L low CO2 21 (L) 22 - 29 mmol/ L 06/09 3:01 AM [facility] Not Available Not Available 06/28/2024 17:40:42 06/09/1906/09/2024 Compr ehens chetna metab olic 2000 panel - Serum or Plasm a calcium [mass/volume ] in serum or plasma 8.1 mg/dL low: 8.4mg/ dLhigh : 10.4mg /dL low Calci um 8.1 (L) 8.4 - 10.4 mg/dL 06/09 3:01 AM [facility] Not Available Not Available 06/28/2024 17:40:42 06/09/19 25 06/09/2024 Compr ehens chetna metab olic 2000 panel - Serum or Plasm a anion gap in blood 9 mmol/ L low: 6mmol/ Lhigh: 16mmol /L Anion Gap 9 6 - 16 mmol/ L 06/09 3:01 AM [facility] Not Available Not Available 06/28/2024 17:40:42 06/09/19 25 06/09/2024 Compr ehens chetna metab olic 2000 panel - Serum or Plasm a urea nitrogen [mass/volume ] in serum or plasma 18 mg/dL low: 7mg/dL high: 26mg/d L BUN 18 7 - 26 mg/dL 06/09 3:01 AM [facility] Not Available Not Available 06/28/2024 17:40:42 06/09/19 25 06/09/2024 Compr ehens chetna metab olic 2000 panel - Serum or Plasm a creatinine [mass/volume ] in serum or plasma 0.85 mg/dL low: 0.72mg /dLhig h: 1.25mg /dL Creat inine 0.85 0.72 - 1.25 mg/dL 06/09 3:01 AM [facility] Not Available Not Available 06/28/2024 17:40:42 06/09/19 25 06/09/2024 Compr ehens chetna metab olic 1999 panel - Serum or Plasm a alkaline phosphatase [enzymatic activity/vol ume] in serum or plasma 65 U/L low: 40U/Lh igh: 150U/L Alkal ine Phosp hatas e 65 40 - 150 U/L 06/09 3:01 AM 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 [facility] Not Available Not Available 06/28/2024 17:40:42 06/09/19 25 06/09/2024 Compr ehens chetna metab olic 1999 panel - Serum or Plasm a alanine aminotransfe rase [enzymatic activity/vol ume] in serum or plasma 14 U/L low: 0U/Lhi gh: 55U/L ALT 14 0 - 55 U/L 06/09 3:01 AM [facility] Not Available Not Available 06/28/2024 17:40:42 06/09/19 25 06/09/2024 Compr ehens chetna metab olic 1999 panel - Serum or Plasm a aspartate aminotransfe rase [enzymatic activity/vol ume] in serum or plasma 50 U/L low: 5U/Lhi gh: 34U/L high AST 50 (H) 5 - 34 U/L 06/09 3:01 AM [facility] [facility] Not Available Not Available 06/28/2024 17:40:42 06/09/19 25 06/09/2024 Compr ehens chetna metab olic 1999 panel - Serum or Plasm a protein [mass/volume ] in serum or plasma 5.8 text: 6.4 - 8.3 gm/dL low Prote in Total 5.8 (L) 6.4 - 8.3 gm/dL 06/09 3:01 AM [facility] Not Available Not Available 06/28/2024 17:40:42 06/09/19 25 06/09/2024 Compr ehens chetna metab olic 2000 panel - Serum or Plasm a albumin [mass/volume ] in serum or plasma 2.8 text: 3.4 - 5.0 gm/dL low Album in 2.8 (L) 3.4 - 5.0 gm/dL 06/09 3:01 AM 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 [facility] Not Available Not Available 06/28/2024 17:40:42 06/09/1906/09/2024 Compr ehens chetna metab olic 1999 panel - Serum or Plasm a bilirubin.to kathi [mass/volume ] in serum or plasma 3.2 mg/dL low: 0.2mg/ dLhigh : 1.2mg/ dL high Bilir ubin Total 3.2 (H) 0.2 - 1.2 mg/dL 06/09 3:01 AM 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 [facility] Not Available Not Available 06/28/2024 17:40:42 06/09/1906/09/2024 Compr ehens chetna metab olic 2000 panel - Serum or Plasm a glomerular filtration rate/1.73 sq M.predicted [volume rate/area] in serum, plasma or blood by creatinine-b ased formula (CKD-epi 2020) text: >=90 mL/min /1.73 m2 eGFR by CKD-E PI >90 >=90 mL/mi n/1.7 3 m2 06/09 3:01 AM 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 [facility] Not Available Not Available 06/28/2024 [...] 2.5 - 4.5 mg/dL 06/09 2:40 AM 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 [facility] Not Available Not Available 06/28/2024 [...] 1.6 - 2.6 mg/dL 06/09 2:40 AM 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 [facility] Not Available Not Available 06/28/2024 17:40:42 06/09/1906/09/2024 Magne sium [Mass /volu me] in Serum or Plasm a interpretati on and review of laboratory results Normal Not Available Not Available 06/05 17:40:42 06/09/1906/09/2024 Lipid 1995 panel - Serum or Plasm a cholesterol [mass/volume ] in serum or plasma 69 mg/dL high: 200mg/ dL Loretta stero l 69 <200 mg/dL 06/09 2:40 AM 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 [facility] Not Available Not Available 06/28/2024 17:40:42 06/09/1906/09/2024 Lipid 1995 panel - Serum or Plasm a triglyceride [mass/volume ] in serum or plasma 99 mg/dL high: 150mg/ dL Trigl yceri patricia 99 <150 mg/dL 06/09 2:40 AM [facility] Not Available Not Available 06/28/2024 17:40:42 06/09/19 25 06/09/2024 Lipid 1995 panel - Serum or Plasm a cholesterol in HDL [mass/volume ] in serum or plasma 19 mg/dL low: 40mg/d L low HDL Loretta stero l 19 (L) >40 mg/dL 06/09 2:40 AM 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 [facility] Not Available Not Available 06/28/2024 17:40:42 06/09/19 25 06/09/2024 Lipid 1995 panel - Serum or Plasm a cholesterol in LDL [mass/volume ] in serum or plasma by calculation 30 mg/dL high: 130mg/ dL LDL Calcu lated 30 <130 mg/dL 06/09 2:40 AM 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 [facility] Not Available Not Available 06/28/2024 17:40:42 06/09/19 25 06/09/2024 Lipid 1996 panel - Serum or Plasm a cholesterol in VLDL [mass/volume ] in serum or plasma by calculation 20 mg/dL high: 30mg/d L VLDL Calcu lated 20 <=30 mg/dL 06/09 2:40 AM 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 [facility] Not Available Not Available 06/28/2024 17:40:42 06/09/19 25 06/09/2024 Lipid 1996 panel - Serum or Plasm a cholesterol. total/choles terol in HDL [mass ratio] in serum or plasma 3.6 high: 4.5 Chol HDL Ratio 3.6 <4.5 06/09 2:40 AM 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 [facility] Not Available Not Available 06/28/2024 17:40:42 06/09/19 25 06/09/2024 Lipid 1996 panel - Serum or Plasm a cholesterol in LDL/choleste rol in HDL [mass ratio] in serum or plasma 1.6 high: 5 LDL/H DL Ratio 1.6 <5.0 06/09 2:40 AM 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 [facility] Not Available Not Available 06/28/2024 17:40:42 [...] 70 - 99 mg/dL 06/10 12:53 PM 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 [facility] Not Available Not Available 06/28/2024 17:40:43 06/10/1906/10/2024 Gluco se [Mass /volu me] in Arter ial blood specimen source identified Cap Finger stick Speci men Type Cap Finge rstic k 06/10 12:53 PM 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 [facility] Not Available Not Available 06/28/2024 17:40:43 [...] 70 - 99 mg/dL 06/10 1:24 PM 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 [facility] Not Available Not Available 06/28/2024 17:40:48 06/10/19 25 06/10/2024 Gluco se [Mass /volu me] in Arter ial blood specimen source identified Cap Finger stick Speci men Type Vincent De Paz rstic k 06/10 1:24 PM 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 [facility] Not Available Not Available [...] 70 - 99 mg/dL 06/10 7:16 AM 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 [facility] Not Available Not Available 06/28/2024 17:40:48 06/10/19 25 06/10/2024 Gluco se [Mass /volu me] in Arter ial blood specimen source identified Cap Finger stick Speci men Type Cap Lanie rstic k 06/10 7:16 AM 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 [facility] Not Available Not Available 06/28/2024 17:40:48 06/10/19 25 06/10/2024 Gluco se [Mass /volu me] in Arter ial blood glucose [mass/volume ] in capillary blood by glucometer 74 mg/dL low: 70mg/d Lhigh: 99mg/d L Gluco se WB/PO C 74 70 - 99 mg/dL 06/10 6:43 AM 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 [facility] Not Available Not Available 06/28/2024 17:40:48 06/10/1906/10/2024 Gluco se [Mass /volu me] in Arter ial blood specimen source identified Cap Finger stick Speci men Type Cap Finge rstic k 06/10 6:43 AM 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 [facility] Not Available Not Available 06/28/2024 17:40:48 06/10/1906/10/2024 CBC panel - Blood by Autom ated count leukocytes [#/volume] in blood by automated count 2.3 text: 4.0 - 10.7 x10e9/ L low WBC 2.3 (L) 4.0 - 10.7 x10E9 /L 06/10 5:36 AM 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 [facility] Not Available Not Available 06/28/2024 17:40:43 06/10/1906/10/2024 CBC panel - Blood by Autom ated count erythrocytes [#/volume] in blood by automated count 4.44 text: 4.30 - 5.80 x10e12 /L RBC Count 4.44 4.30 - 5.80 x10E1 2/L 06/10 5:36 AM 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 [facility] Not Available Not Available 06/28/2024 17:40:43 06/10/1906/10/2024 CBC panel - Blood by Autom ated count hemoglobin [mass/volume ] in blood 13.2 g/dL low: 13.3g/ dLhigh : 17.5g/ dL low Hemog lobin 13.2 (L) 13.3 - 17.5 g/dL 06/10 5:36 AM 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 [facility] Not Available Not Available 06/28/2024 17:40:43 06/10/1906/10/2024 CBC panel - Blood by Autom ated count hematocrit [volume fraction] of blood by automated count 37.8 % low: 38.7%h igh: 51.1% low Hemat ocrit 37.8 (L) 38.7 - 51.1 % 06/10 5:36 AM 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 [facility] Not Available Not Available 06/28/2024 17:40:43 06/10/1906/10/2024 CBC panel - Blood by Autom ated count MCV [entitic volume] by automated count 85.1 fL low: 80fLhi gh: 98fL MCV 85.1 80.0 - 98.0 fL 06/10 5:36 AM 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 [facility] Not Available Not Available 06/28/2024 17:40:43 06/10/1906/10/2024 CBC panel - Blood by Autom ated count MCH [entitic mass] by automated count 29.7 pg low: 26.7pg high: 33.6pg MCH 29.7 26.7 - 33.6 pg 06/10 5:36 AM 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 [facility] Not Available Not Available 06/28/2024 17:40:43 06/10/1906/10/2024 CBC panel - Blood by Autom ated count MCHC [mass/volume ] by automated count 34.9 g/dL low: 31.7g/ dLhigh : 36.3g/ dL MCHC 34.9 31.7 - 36.3 g/dL 06/10 5:36 AM 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 [facility] Not Available Not Available 06/28/2024 17:40:43 06/10/1906/10/2024 CBC panel - Blood by Autom ated count erythrocyte distribution width [ratio] by automated count 15.2 % low: 11.3%h igh: 14.8% high RDW-C V 15.2 (H) 11.3 - 14.8 % 06/10 5:36 AM [facility] Not Available Not Available 06/28/2024 17:40:43 06/10/1906/10/2024 CBC panel - Blood by Autom ated count platelets [#/volume] in blood by automated count 64 text: 150 - 420 x10e9/ L low Plate let Count 64 (L) 150 - 420 x10E9 /L 06/10 5:36 AM 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 [facility] Not Available Not Available 06/28/2024 17:40:43 06/10/1906/10/2024 CBC panel - Blood by Autom ated count platelet mean volume [entitic volume] in blood by automated count 10.9 fL low: 7.8fLh igh: 11.4fL MPV 10.9 7.8 - 11.4 fL 06/10 5:36 AM 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 [facility] Not Available Not Available 06/28/2024 17:40:43 [...] 70 - 99 mg/dL 06/10 5:25 AM [facility] Not Available Not Available 06/28/2024 17:40:42 06/10/19 25 06/10/2024 Basic metab olic 2000 panel - Serum or Plasm a sodium [moles/volum e] in serum or plasma 139 mmol/ L low: 136mmo l/Lhig h: 145mmo l/L Sodiu m 139 136 - 145 mmol/ L 06/10 5:25 AM [facility] Not Available Not Available 06/28/2024 17:40:42 06/10/19 25 06/10/2024 Basic metab olic 2000 panel - Serum or Plasm a potassium [moles/volum e] in serum or plasma 3.4 mmol/ L low: 3.5mmo l/Lhig h: 5.1mmo l/L low Potas sium 3.4 (L) 3.5 - 5.1 mmol/ L 06/10 5:25 AM [facility] Not Available Not Available 06/28/2024 17:40:42 06/10/19 25 06/10/2024 Basic metab olic 2000 panel - Serum or Plasm a chloride [moles/volum e] in serum or plasma 107 mmol/ L low: 98mmol /Lhigh : 107mmo l/L Chlor james 107 98 - 107 mmol/ L 06/10 5:25 AM 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 [facility] Not Available Not Available 06/28/2024 17:40:42 06/10/1906/10/2024 Basic metab olic 2000 panel - Serum or Plasm a carbon dioxide, total [moles/volum e] in serum or plasma 22 mmol/ L low: 22mmol /Lhigh : 29mmol /L CO2 22 22 - 29 mmol/ L 06/10 5:25 AM 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 [facility] Not Available Not Available 06/28/2024 17:40:42 06/10/1906/10/2024 Basic metab olic 2000 panel - Serum or Plasm a calcium [mass/volume ] in serum or plasma 8.2 mg/dL low: 8.4mg/ dLhigh : 10.4mg /dL low Calci um 8.2 (L) 8.4 - 10.4 mg/dL 06/10 5:25 AM 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 [facility] Not Available Not Available 06/28/2024 17:40:42 06/10/1906/10/2024 Basic metab olic 2000 panel - Serum or Plasm a anion gap in blood 10 mmol/ L low: 6mmol/ Lhigh: 16mmol /L Anion Gap 10 6 - 16 mmol/ L 06/10 5:25 AM 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 [facility] Not Available Not Available 06/28/2024 17:40:42 06/10/19 25 06/10/2024 Basic metab olic 2000 panel - Serum or Plasm a urea nitrogen [mass/volume ] in serum or plasma 15 mg/dL low: 7mg/dL high: 26mg/d L BUN 15 7 - 26 mg/dL 06/10 5:25 AM 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 [facility] Not Available Not Available 06/28/2024 17:40:42 06/10/19 25 06/10/2024 Basic metab olic 2000 panel - Serum or Plasm a creatinine [mass/volume ] in serum or plasma 0.7 mg/dL low: 0.72mg /dLhig h: 1.25mg /dL low Creat inine 0.70 (L) 0.72 - 1.25 mg/dL 06/10 5:25 AM 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 [facility] Not Available Not Available 06/28/2024 17:40:42 06/10/19 25 06/10/2024 Basic metab olic 2000 panel - Serum or Plasm a glomerular filtration rate/1.73 sq M.predicted [volume rate/area] in serum, plasma or blood by creatinine-b ased formula (CKD-epi 2020) text: >=90 mL/min /1.73 m2 eGFR by CKD-E PI >90 >=90 mL/mi n/1.7 3 m2 06/10 5:25 AM 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 [facility] Not Available Not Available 06/28/2024 17:40:42 06/10/19 25 06/10/2024 Basic metab olic 2000 panel - Serum or Plasm a interpretati on and review of laboratory results Abnorm al Not Available Not Available 17:40:42 02/24/20 24 02/23/2024 XR, abdom en [facility] [address] [place], [address], 02/24/2024 08:59:19 04/17/20 24 04/16/2024 MRI, lumba r spine , w/o contr ast No observ ation record ed. [facility] [address] [place], [address], 04/18/2024 12:31:37 06/08/19 25 06/08/2024 XR, chest No observ ation record ed. [facility] [address] [place], [address], 06/08/2024 08:55:38 Result Notes None recorded. Problems Name Problem SNOMED Code Status Onset Date Resolution Date Notes Provider Name and Address Organization Details Recorded Time Diabetes mellitus 54887795 Active 2018 [facility] [place] [facility] 10:51:15 Liver finding 966539471 Active 2018 [facility] [place] [facility] 10:51:15 Hyperglycem ia due to type 2 diabetes mellitus 9121648637250 09 Active Amanda Amin [place], [place] [facility] 4 09:09:59 Type 2 diabetes mellitus in obese 29430586 Active Amanda Amin [place] [facility] 1 10:51:15 Bacteremia 7360519 Active Amanda [place] [facility] 1 10:51:15 Gastroesoph ageal reflux disease 268767939 Active Amanda [place] [facility] 1 10:51:15 Abscess 189036176 Active Amanda [place] [facility] 1 10:51:15 Backache 057542903 [place] [facility] [place] [facility] 1 10:51:15 Hepatic failure 77428033 [place] [facility] [place] [facility] 1 10:51:15 Problem Notes None recorded. Procedures Surgical History Date Name Laterality Status Provider Name and Address Organization Details Recorded Time 6 colonoscopy completed Amanda Amin [place] [facility] 11/15/2021 15:39:15 Imaging Results Imaging Date Name Status LastModified by Organiz ation Details LastModified Time 02/23/2024 XR, abdomen completed [facility] [address] [place], [address], 02/24/2024 08:59:19 04/16/2024 MRI, lumbar spine, w/o contrast completed [facility] [address] [place], [address], 04/18/2024 12:31:37 06/08/2024 XR, chest completed [facility] [address] [place], [address], 06/08/2024 08:55:38 Procedure Notes None recorded. Medical Equipment None Reported. Allergies Allergen ID Allergen Name Allergen Category Reaction Reaction Severity Criticality Documentation Date Start Date Code Code System Note Provider Name and Address Organization Details Recorded Time 759449 Product containin g penicilli n (product) medicatio n Not available Not available Not available 12/16/2017 87546 8001 SNOMED Not Available Not Available Not Available 392949 Substance with sulfonami de structure and antibacte rial mechanism of action (substanc e) medicatio n Not available Not available Not available 12/16/2017 74342 8003 SNOMED Not Available Not Available Not Available 771994 Nexium medicatio n Not available Not available Not available 12/16/2017 32731 9 RxNorm Not Available Not Available Not Available 594755 erythromy roxana medicatio n Not available Not available Not available 12/16/2017 4053 RxNorm Not Available Not Available Not Available 495364 Iodinated contrast media (substanc e) medicatio n Not available Not available Not available 12/16/2017 97977 2004 SNOMED Not Available Not Available Not Available 396597 ciproflox acin medicatio n Not available Not available Not available 12/16/2017 2551 RxNorm Not Available Not Available Not Available 020121 Azactam medicatio n Not available Not available Not available 12/16/2017 96848 1 RxNorm Not Available Not Available Not Available 260740 aztreonam medicatio n Not available Not available Not available 12/16/2017 1272 RxNorm Not Available Not Available Not Available 506793 octreotid e Not available Not available Not available Not available 12/16/2017 7617 RxNorm Not Available Not Available Not Available 084708 duloxetin e medicatio n Not available Not available Not available 12/16/2017 70366 RxNorm Not Available Not Available Not Available 990848 oxycodone medicatio n other Not available Not [...] completed Not Available Not Available Not Available [employer] Ultra Test strips USE FOR TESTING BEFORE EACH MEAL AND AT BEDTIME 2024 active Not Available Not Available Not Avai lable hydrocodone 7.5 mg-acetamin ophen 325 mg tablet [...] 7 HOURS, AND 1 HOUR BEFORE PROCEDURE 02/23 /2022 completed Not Available Not Available [...] tablet TAKE ONE TABLET BY MOUTH DAILY 2024 active Not Available Not Available Not [...] Updated DateTime 4 171.45 cm 34.6 kg/m2 573349. 69 g 96 % 96 % 108 /min 121 mm[Hg] 81 mm[Hg] Karina Alvarez MA [facility] 4 11:08:58 Date Recorded Body height Body mass index (BMI) Body weight Oxygen saturation Oxygen saturation in Arterial blood by Pulse oximetry Heart rate Systolic blood pressure Diastolic blood pressure Provider Name and Address Organization Details Last Updated DateTime 4 171.45 cm 34.9 kg/m2 264357. 28 g 95 % 95 % 94 /min 139 mm[Hg] 80 mm[Hg] Karina Alvarez MA [facility] 4 14:55:26 Date Recorded Body height Body mass index (BMI) Body weight Oxygen saturation Oxygen saturation in Arterial blood by Pulse oximetry Heart rate Systolic blood pressure Diastolic blood pressure Provider Name and Address Organization Details Last Updated DateTime 4 171.45 cm 35 kg/m2 377486. 47 g 97 % 97 % 97 /min 128 mm[Hg] 81 mm[Hg] Karina Alvarez MA [facility] 4 10:54:27 Date Recorded Body height Body mass index (BMI) Body weight Oxygen saturation Oxygen saturation in Arterial blood by Pulse oximetry Heart rate Systolic blood pressure Diastolic blood pressure Provider Name and Address Organization Details Last Updated DateTime 4 171.45 cm 34.5 kg/m2 311848. 9 g 95 % 95 % 102 /min 149 mm[Hg] 91 mm[Hg] Karina Alvarez MA [facility] 4 10:09:39 Date Recorded Body height Body mass index (BMI) Body weight Oxygen saturation Oxygen saturation in Arterial blood by Pulse oximetry Heart rate Systolic blood pressure Diastolic blood pressure Provider Name and Address Organization Details Last Updated DateTime 5 171.45 cm 33.9 kg/m2 57344.3 2 g 95 % 95 % 88 /min 120 mm[Hg] 88 mm[Hg] Amanda Amin MA [facility] 5 17:59:35 Social History Question Answer Notes LastModified by Organizat ion Details LastModified Time Tobacco Smoking Status Former Smoker BEBO Andino [facility] 12/16/2017 12:02:47 What Is Your Level Of Alcohol Consumption? None Former [email or web address] Information not available 12/16/2017 What Is Your [...] Anxious, Or Unable To Sleep At Night)? [id number] [email or web address] Information not available 08/21/2021 Do You [...] Skin Problems N Anemia N Heart Attack ([place]) N Anxiety Disorder Y Diabetes Y Muscle, [...] mcg/0.3 mL dose 12/29/2020 completed [facility] Available [facility]05 Hep A-Hep B 09/10/2015 completed [facility] Far[place] [facility] 07/20/2023 09:11:13 Past Encounters Encounter ID Performer Location Encounter Start Date Encounter Closed Date Diagnosis/Indication Diagnosis SNOMED-CT Code Diagnosis ICD10 Code Diagnosis Note [id number] Julia Guerrier MA [facility] [address] [place] [address] 12/16/2017 11:36:06 12/16/2017 12:52:59 Nonalcoholic steatohepatitis 519682335 K75.81 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 656384377 I85.10 Type 2 obdulio betes mellitus 02534164 E11.9 [id number] Janeth Pavon PA-C [facility] [address] [place] [address] 12/23/2017 11:30:06 12/23/2017 12:45:09 Diabetes mellitus 38492621 E11.69 Cholecystitis 01412241 K 80.01 End stage liver disease 789242647 K72.90 [id number] Janeth Pavon PA-C [facility] [address] [place] [address] 02/11/2018 15:41:09 02/11/2018 16:48:42 Generalized anxiety disorder 57278094 F41.1 Uncontroll ed type 2 diabetes mellitus 455077460 E11.65 [id number] TOM Kunz [facility] [address] [place] [address] 03/02/2018 15:31:55 03/02/2018 16:08:34 End stage liver disease 170858833 K72.00 Uncontroll ed type 2 diabetes mellitus 121769851 E11.65 [id number] Janeth Pavon PA-C [facility] [address] [place] [address] 05/13/2018 15:37:41 05/13/2018 17:17:50 End stage liver disease 497295520 K72.00 [id number] TOM Kunz [facility] [address] [place] [address] 05/25/2018 11:13:32 05/25/2018 11:43:34 End stage liver disease 902422412 K72.00 Dyspnea on exertion 6084 5006 R06.09 Tachycardia 4726474 R00. 0 On examina tion - deep seated pustules 787700656 L08.9 [id number] Janeth Pavon PA-C [facility] [address] [place] [address] 06/14/2018 10:19:40 06/14/2018 11:01:20 Diabetes mellitus 25118564 E11.69 End stage liver disease 183243013 K72.00 Lumbar radiculopathy 128 827842 M54.16 [id number] Janeth Pavon PA-C [facility] [address] [place] [address] 02/09/2019 14:30:46 02/09/2019 15:35:07 Diabetes mellitus 65853526 E11.69 Increased frequency of urination 888147499 R35.0 [id number] Janeth Pavon PA-C [facility] [address] [place] [address] 03/22/2019 15:44:00 03/22/2019 17:48:00 Anemia due to chronic blood loss 108922120 D50.0 Nonalcohol ic steatohepatitis 250838623 K75.81 Type 2 obdulio betes mellitus without complication 173985065 E11.9 Low back pain 337185753 M54.5 Increased frequency of urination 571981558 R35.0 Hepatic encephalopathy 19952090 K72.90 [id number] Janeth Pavon PA-C [facility] [address] [place] [address] 08/01/2019 11:23:53 08/01/2019 12:28:44 Cirrhosis of liver 31546763 K74.69 [id number] [facility] [address] [place] [address] 08/17/2019 09:24:17 08/24/2019 11:34:51 Diabetes mellitus 56095299 E11.69 Lumbar radiculopathy 128 422342 M54.16 [id number] Janeth Pavon PA-C [facility] [address] [place] [address] 08/31/2019 14:50:58 09/02/2019 14:48:06 Acute bronchitis with bronchospasm 65158912 J20.9 [id number] [facility] [address] [place] [address] 12/19/2019 09:34:48 12/19/2019 15:21:39 [id number] TOM Kunz [facility] [address] [place] [address] 12/23/2019 09:37:23 12/23/2019 15:52:54 Diabetes mellitus 86789355 E11.69 Obstructiv e sleep apnea syndrome 83535443 G47.33 End stage liver disease 467515860 K72.00 Thoracic back pain 26122 8004 M54.6 [id number] Janeth Pavon PA-C [facility] [address] [place] [address] 01/25/2020 09:34:10 01/25/2020 15:21:39 Lumbar radiculopathy 068678990 M54.16 [id number] Janeth Pavon PA-C [facility] [address] [place] [address] 02/23/2020 09:42:16 02/23/2020 16:52:05 Diabetes mellitus 59592002 E11.69 Renal mass 253827925 N28 .89 Neoplasm of kidney 82070 0001 D49.747 [id number] Janeth Pavon PA-C [facility] [address] [place] [address] 06/13/2020 11:39:18 06/14/2020 10:53:35 Nonalcoholic steatohepatitis 054124869 K75.81 Uncontroll ed type 2 diabetes mellitus 238256607 E11.65 [id number] TOM Kunz [facility] [address] [place] [address] 07/25/2020 11:21:27 07/25/2020 14:13:47 Long-term drug therapy 713680908 Z79.899 Gastroesop hageal reflux disease without esophagitis 602859749 K21.9 Hematochezia 682779441 K 92.1 Nausea and vomiting 1693 1999 R11.2 Pityriasis rosea 4658116 4 L42 Type 2 obdulio betes mellitus 36168356 E11.9 [id number] Janeth Pavon PA-C [facility] [address] [place] [address] 07/27/2020 10:05:37 07/31/2020 10:18:42 Uncontrolled type 2 diabetes mellitus 523495365 E11.65 [id number] Janeth Pavon PA-C [facility] [address] [place] [address] 2020 11:20:02 09/08/2020 12:42:46 Tinea corporis 26100794 B35.4 Abscess 220575401 L02.91 [id number] Janeth Pavon PA-C [facility] [address] [place] [address] 11/16/2020 10:47:40 11/16/2020 11:46:55 Exanthem due to herpes zoster 318725857 B02.8 [id number] Janeth Pavon PA-C [facility] [address] [place] [address] 06/26/2021 15:54:46 06/26/2021 17:00:08 Long-term drug therapy 354628360 Z79.899 Low back pain 774742580 M54.51 Body mass index 30+ - obesity 843598675 Z68.39 Screening for malignant neoplasm of prostate 730163544 Z12.5 [id number] Janeth Pavon PA-C [facility] [address] [place] [address] 08/21/2021 11:08:46 08/21/2021 12:35:42 Adult health examination 894619991 Z00.00 Backache 772011155 M54.9 [id number] Janeth Pavon PA-C [facility] [address] [place] [address] 11/15/2021 15:33:53 11/18/2021 10:03:54 Hyperglycemia due to type 2 diabetes mellitus 6446061970 76412 E11.65 Type 2 obdulio betes mellitus 99489810 E11.9 Morbid obesity 760732756 E66.01 End stage liver disease 983767116 K72.00 [id number] Janeth Pavon PA-C [facility] [address] [place] [address] 05/28/2022 16:19:55 05/28/2022 17:17:07 Uncontrolled type 2 diabetes mellitus 426121602 E11.65 Chronic back pain 610467 002 M54.05 Overweight 946053084 E66 .3 Urinary incontinence 165 583373 R32 Generalize d anxiety disorder 89735401 F41.1 Backache 908941142 M54.9 [id number] Janeth Pavon PA-C [facility] [address] [place] [address] 10/27/2022 14:34:16 10/28/2022 10:40:36 Long-term drug therapy 191842307 Z79.899 Lumbar radiculopathy 128 001139 M54.16 Persistent cough 4378335 02 R05.3 Daytime somnolence 37874 41984 00 R40.0 Type 2 obdulio betes mellitus 34762265 E11.9 Iron defic iency anemia 79213720 D50.8 [id number] Janeth Pavon PA-C [facility] [address] [place] [address] 12/29/2022 15:17:34 12/30/2022 09:55:18 Lumbar radiculopathy 913295373 M54.16 Overweight 123019394 E66 .3 [id number] Janeth Pavon PA-C [facility] [address] [place] [address] 02/24/2023 18:01:59 03/02/2023 15:11:10 Persistent cough 842787184 R05.3 Essential hypertension 71609631 I10 Overweight 815729717 E66 .3 [id number] Janeth Pavon PA-C [facility] [address] [place] [address] 05/14/2023 11:38:36 05/15/2023 11:58:34 Type 2 diabetes mellitus 30511559 E11.9 Mixed anxi ety and depressive disorder 939896968 F41.8 Overweight 082211639 E66 .3 [id number] Janeth Pavon PA-C [facility] [address] [place] [address] 06/04/2023 10:52:25 06/09/2023 14:14:44 Abdominal pain 29176525 R10.13 Cirrhosis of liver 83578 007 K74.69 Overweight 731050782 E66 .3 [id number] Janeth Pavon PA-C [facility] [address] [place] [address] 07/02/2023 12:08:49 07/03/2023 11:31:17 Type 2 diabetes mellitus 28454851 E11.9 Atypical chest pain 1025 12911 R07.89 Overweight 398832131 E66 .3 [id number] Janeth Pavon PA-C [facility] [address] [place] [address] 08/05/2023 15:58:27 08/21/2023 14:53:44 Uncontrolled type 2 diabetes mellitus 897076146 E11.65 Overweight 550420791 E66 .3 [id number] Janeth Pavon PA-C [facility] [address] [place] [address] 08/13/2023 14:55:22 08/20/2023 15:19:06 Lumbar radiculopathy 268576589 M54.16 [id number] [facility] [address] [place] [address] 09/17/2023 08:59:31 09/18/2023 13:42:26 Atopic dermatitis 62291093 L20.9 -Patient presentati on consistent with atopic dermatitis .-Patient reports rash has improved with triamcinol one use. Patient to continue triamcinol one for another 7 days BID PRN.-RIVETER HELPER ordering eucerin lotion for patient to use daily PRN.-RIVETER HELPER provided atopic dermatitis care instructio elysia. Type 2 obdulio betes mellitus 92244043 E11.21 -Uncontrol led.-Last A1c: 12 (05/14/23)- Continue current therapy-Jamie werner would like referral to another endocrinol ogist and nutritioni st. RIVETER HELPER to place orders.-RIVETER HELPER discussed diet and lifestyle changes with the patient at length. RIVETER HELPER provided numerous diabetes care instructio ns and discussed with the patient.-R ecommended diabetic diet-Educa manny to check feet daily [id number] Amanda Amin MA [facility] [address] [place] [address] 10/16/2023 11:23:31 10/17/2023 06:49:47 Long-term drug therapy 300819525 Z79.899 Diabetes mellitus 948727 09 E11.69 Overweight 765581670 E66 .3 [id number] Janeth Pavon PA-C [facility] [address] [place] [address] 01/14/2024 09:33:39 01/19/2024 12:05:45 Long-term drug therapy 003720636 Z79.899 Type 2 obdulio betes mellitus 70103606 E11.9 Uncontroll ed type 2 diabetes mellitus 225017921 E11.65 ER now Overweight 023842397 E66 .3 [id number] Janeth Pavon PA-C [facility] [address] [place] [address] 01/26/2024 10:49:29 02/03/2024 14:35:51 Cirrhosis of liver 83995900 K74.69 Type 2 obdulio betes mellitus 50323746 E11.9 [facility] 188053009 Z00.00 Overweight 854577002 E66 .3 [id number] Janeth Pavon PA-C [facility] [address] [place] [address] 03/03/2024 10:44:06 03/04/2024 13:36:40 Chronic low back pain 858196802 M54.59 Morbid obesity 101133216 E66.01 [id number] Janeth Pavon PA-C [facility] [address] [place] [address] 03/08/2024 14:46:39 03/09/2024 16:00:13 Seizure 15957529 G40.89 Uncontroll ed type 2 diabetes mellitus 057716620 E11.65 Dissociati ve convulsions 195214680 F44.5 Overweight 584705693 E66 .3 [id number] Janeth Pavon PA-C [facility] [address] [place] [address] 03/23/2024 10:36:19 03/28/2024 10:16:17 Lumbar radiculopathy 443670672 M54.16 Uncontroll ed type 2 diabetes mellitus 515022583 E11.65 Overweight 361495099 E66 .3 [id number] Janeth Pavon PA-C [facility] [address] [place] [address] 04/06/2024 09:53:53 04/06/2024 16:23:24 Dysuria 04995535 R30.0 Uncontroll ed type 2 diabetes mellitus 523300121 E11.65 Generalize d anxiety disorder 71216128 F41.1 Overweight 207073054 E66 .3 [id number] Janeth Pavon PA-C [facility] [address] [place] [address] 06/28/2024 17:38:46 06/29/2024 10:11:55 Hemoptysis 84882927 R04.2 Functional gait abnormality 5609528191 9103 R26.0 Health Concerns Section Related Observation [...] 2020 (MEDICAID REPLACEMENT - HMO) Camilo Curry [id number] Camilo Curry 03/08/2024 1 [employer] [place] ON [place] AFTER 2020 (MEDICAID REPLACEMENT - HMO) Camilo Curry [id number] Camilo Curry 03/23/2024 1 [employer] [place] ([place]ID REPLACEMENT - HMO) Camilo Curry [id number] Camilo Curry 04/06/2024 1 [employer] [place] ([place] REPLACEMENT - HMO) Camilo Curry [id number] Camilo Curry 06/28/2024 1 [employer] [place] ([place]ID REPLACEMENT - HMO) Camilo Curry [id number] Camilo Curry Notes Date Note Type Note Provider Name and Address Organization Details Recorded Time 03/03/2024 text/html 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 and wants a brace in order to facilitate ADL such as standing ambulating and hygiene and meal prep Janeth Pavon PA-C Attn: Accounting, [address] [place], [address], [facility] 03/03/2024 11:28:09 03/08/2024 text/html first time seizu re thursday night..says approx an hour?...was found in yard..refused EMS..cant get into psych until end of april...no xanax for over a month...reports BS was off meter high..reports no post ictal Janeth Pavon PA-C Attn: Accounting, [address] [place], [address], [facility] 03/08/2024 15:28:41 03/23/2024 text/html injured his lowe r back moving furniture...needs MRI...xray and CT spine were negative...phys therapy was ineffective...was just in ER Janeth Pavon PA-C Attn: Accounting, [address] [place], [address], [facility] 03/23/2024 11:18:37 04/06/2024 text/html has burning urination for a week... every hour frequency...says he has been drinking nikhil justice vs nausea...also needs something for sedation for MRI Janeth Pavon PA-C Attn: Accounting, [address] [place], [address], [facility] 04/06/2024 10:29:01 06/28/2024 text/html was in CHF and pneumonia at [facility]..now is also vomiting brown like blood on occasion..hx of varices..also starting to lose balance again and also having pain around back to mid line..his balance feels like he leans over progressively as he walks and loses his balance... Janeth Pavon PA-C Attn: Accounting[address] [facility], [place], [address], [facility] 06/28/2024 18:35:45
--- OUTSIDE RECORDS SUMMARY | 2024-07-27 14:55 | XMS_ITS | Clinical Summary ---
Author Organization [facility] Address [address] [place] [address] Phone Care Team Providers Care Trimming Machine Set Up Operator Name Role Phone Librado Braydon NEAL Primary Care Provider [phone] Vikram Mora MD Unavailable Riddhi Bello APRN, RETENTION REPRESENTATIVE Unavailable Allergies Active Allergy Reactions Criticality Noted [...] as needed. 3 Active ergocalciferol (VITAMIN D) 45774 UNIT Capsule Take 50,000 Units by mouth. Active Insulin Pen Needle (B-D ULTRAFINE III SHORT PEN) 31G X 8 MM Misc 1 Active Insulin Pen Needle (B-D ULTRAFINE III SHORT PEN) 31G X 8 MM Misc 1 Each by Subcutaneous route. 1 Active Insulin Pen Needle (Pen Ripley) 32G X 4 MM Misc Inject 3 [...] 10 Tablet 4 Active Continuous Blood Gluc Service Desk Analyst (Dexcom G7 Service Desk Analyst) Device Check blood glucose before each meal and at bedtime 1 Each 4 Active HYDROcodone-bella taminophen ([place]) 10-325 MG Tablet Take 1 Tablet by [...] Nurse Triage [facility] [address] [place] [address] Riddhi Bello APRN, RETENTION REPRESENTATIVE Blood in Vomit from Last 3 Months [...] on file Legal Sex Male 10:58 AM BROADCAST CORRESPONDENT Gender Identity Not on file Sexual Orientation [...] Visit [facility] [address] [place] [id number] Andrea Hawkins MD [address] [place] [address] Health Maintenance Due Date Last Done Comments [...] W/ ESTIMATED GLUCOSE STAT 05/20/2023 10:44 AM BROADCAST CORRESPONDENT from Last 3 Months or Most Recently Relevant to Health Maintenance Results * (ABNORMAL) CMP (Comprehensive Metabolic Panel) (11/13/2023 6:40 PM CDT) SODIUM 139 136 - 145 mmol/L 11/13/2023 7:25 PM CDT [facility] POTASSIUM 3.7 3.5 - 5.1 mmol/L 11/13/2023 7:25 PM CDT [facility] CHLORIDE 105 98 - 107 mmol/L 11/13/2023 7:25 PM CDT [facility] CO2, VENOUS 24 22 - 30 mmol/L 11/13/2023 7:25 PM CDT [facility] ANION GAP 13.7 <18.0 mmol/L 11/13/2023 7:25 PM CDT [facility] GLUCOSE 188(H) 70 - 99 mg/dL 11/13/2023 7:25 PM CDT [facility] BUN 11 8 - 26 mg/dL 11/13/2023 7:25 PM CDT [facility] CREATININE, BLOOD 0.84 0.70 - 1.30 mg/dL 11/13/2023 7:25 PM CDT [facility] BUN/CREATININE RATIO 13 12 - 20 ratio 11/13/2023 7:25 PM CDT [facility] TOTAL PROTEIN 7.3 6.3 - 8.2 g/dL 11/13/2023 7:25 PM CDT [facility] ALBUMIN 3.9 3.5 - 5.0 g/dL 11/13/2023 7:25 PM CDT [facility] A/G RATIO 1.1 1.0 - 2.2 11/13/2023 7:25 PM CDT [facility] CALCIUM 9.4 8.7 - 10.5 mg/dL 11/13/2023 7:25 PM CDT [facility] T BILI 3.6(H) 0.2 - 1.2 mg/dL 11/13/2023 7:25 PM CDT [facility] SGOT (AST) 27 5 - 34 U/L 11/13/2023 7:25 PM CDT [facility] SGPT (ALT) 17 0 - 55 U/L 11/13/2023 7:25 PM CDT [facility] ALKALINE PHOSPHATASE 90 40 - 150 U/L 11/13/2023 7:25 PM CDT [facility] GFR, ESTIMATED >60 >=60 11/13/2023 7:25 PM CDT [facility] Comment: Creatinine Clearance is the preferred criteria for selecting drug dose adjustments in renally impaired patients. The GFR is provided as additional pertinent clinical information. GFR is reported in mL/min/1.73 sq m. Calculation based on the Chronic Kidney Disease Epidemiology Collaboration (CKD- EPI) equation refit without adjustment for race. GFR, EST. >60 >=60 024 7:25 PM CDT [facility] GFR, EST. NONAFRICAN >60 >=60 11/13/2023 7:25 PM CDT [facility] Blood Venipuncture / Unknown 11/13/2023 6:40 PM CDT 11/13/2023 7:00 PM CDT us Lul Junior DO CHEMISTRY ORDERABLES Fi nal Result [facility] [address] [place] [address] * (ABNORMAL) Hemoglobin A1C (05/20/2023 10:44 AM BROADCAST CORRESPONDENT) HGB-A1C 11.6(H) 4.0 - 6.0 % 05/20/2023 12:30 PM BROADCAST CORRESPONDENT [facility] Est Average Glucose 286.2 mg/dL 05/20/2023 12:30 PM BROADCAST CORRESPONDENT [facility] Blood Venipuncture / Unknown 05/20/2023 10:44 AM BROADCAST CORRESPONDENT 05/20/2023 11:01 AM BROADCAST CORRESPONDENT Narrative [facility] - 05/20/2023 12:30 PM BROADCAST CORRESPONDENT HEMOGLOBIN A1C: DIABETIC PATIENTS: WELL-CONTROLLED: 6.2 - 7.0 INTERMEDIATE WELL-CONTROLLED: 7.0 - 9.0 POORLY-CONTROLLED: >9.0 Felictias Luz APRN, RETENTION REPRESENTATIVE CHEMISTRY ORDERABLES Final Result Performing Organization Address City/[facility] Co de Phone Number [facility] [address] [place] [address] from Last 3 Months or Most Recently Relevant to Health Maintenance Insurance MEDICAID [facility] [address] [place] [address] Care Teams Trimming Machine Set Up Operator Relationship Specialty Start Date End Date Braydon Pavon, [address] [place] [address] PCP - General Physician Cripple Chaser 06/22/18 Vikram Mora MD [address] [phone] Consulting Physician Endocrinology 05/21/23 Riddhi Bello APRN, RETENTION REPRESENTATIVE [address] [place] [address] Nurse Practitioner Advanced Practice Nurse 02/10/23
--- OUTSIDE RECORDS SUMMARY | 2024-07-27 14:55 | XMS_ITS | Clinical Summary ---
Author Organization [facility] Address [address] [place] [address] Care Team Providers Care Electrical Transmission Engineer Name Role Phone Nacho Rodriguez MD Unavailable [phone] Elian Gross MD Unavailable Braydon Pavon Primary Care Provider [phone] Allergies Active Allergy Reactions Criticality Noted Date [...] 1 each 05/21/19 22 Active Dexcom G6 Lead Welder misc 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 Use to [...] 05/20/2021 Assessment & Plan (05/22/2021 3:58 PM TEACHER TUTOR): A initial well visit to establish care [...] unless otherwise indicated. Need follow-up arranged with sales exhibitor, admissions director Planning on referral to painter plate Will need to check in to the tips follow-up Labs as ordered today, I will direct the A1 c to his admissions director's office. Continuing the current regimen for now. Blood pressure is controlled at this time. We may need to try to get the stress test done as well. Screen for colon cancer 03/01/2021 Overview (03/01/2021): Added automatically from request for surgery [id number] Diabetic neuropathy associat ed with type 2 diabetes mellitus 10/29/2020 Assessment & Plan (10/29/2020 4:23 PM CDT): Chronic, worsening Start, gabapentin therapy Work on better diabetic control Vitamin D deficiency 10/29/2020 Assessment & Plan (10/29/2020 4:23 PM CDT): Check labs and based on that for the plans Bacterial endocarditis 05/14/2020 Assessment & Plan (05/14/2020 11:09 AM TEACHER TUTOR): Unfortunately the patient's records from [facility] are [...] 05/14/2020 Assessment & Plan (05/14/2020 11:11 AM TEACHER TUTOR): The patient's dyspnea on exertion is likely [...] resume home regimen and follow-up with home admissions director MATHEUS pain 10/11/2017 Morbid obesity 12/09/2016 TRACY [...] Type Department Care Team Description 07/06/2024 Documentation [facility] Gastroenterology [address] [place] [address] Advanced Medicine 12th [place] [address] [place] [address] Sean Rodas, BETHANY 07/05/2024 9:40 AM TEACHER TUTOR - 07/05/2024 11:59 PM TEACHER TUTOR Hospital Encounter [facility] ([facility]) [address] [place] [id number] Hepatic cirrhosis, unspecified hepatic cirrhosis type, unspecified whether ascites present (HCC) Discharge Disposition: Discharge to home or self care 07/05/2024 Results Follow-Up [facility] Gastroenterology [address] [place] [address] Advanced Medicine [facility] [place] [address] [place] [address] Nilton Whatley MD 06/02/2024 8:55 AM TEACHER TUTOR Lab [facility] ([facility]) [address] [place] [phone] Hepatic cirrhosis, unspecified hepatic cirrhosis type, unspecified whether ascites present (HCC) 06/02/2024 8:00 AM TEACHER TUTOR Office Visit [facility] Gastroenterology [address] [place] [address] Advanced Medicine 12th [place] [address] [place] [address] Nilton Whatley MD Hepatic cirrhosis, unspecified hepatic [...] on file Legal Sex Male 2:52 PM TEACHER TUTOR Gender Identity Male 10/29/2020 12:37 PM CDT Sexual Orientation Straight 10/29/2020 12 :37 PM CDT Obstetrics History Last Filed Vital Signs Vital Sign Reading Time Taken Comments Blood Pressure 117/76 06/02/2024 7:36 AM TEACHER TUTOR Pulse 88 06/02/2024 7:36 AM TEACHER TUTOR Temperature 36.7 C (98.1 F) 06/02/2024 7:36 AM TEACHER TUTOR Respiratory Rate 17 01/20/2024 12:0 0 PM CDT Oxygen Saturation 92% 06/02/2024 7:36 AM TEACHER TUTOR Inhaled Oxygen Concentration - - Weight 103.1 kg (227 lb 6.4 oz) 06/02/2024 7:36 AM TEACHER TUTOR Height 172.7 cm (5' 8 ) 11/23/2023 [...] Completed 08/23/2015 Medical Devices Implanted Type Area Seo Marketing Specialist Device Identifier Shelf Expiration Date Model / Serial / Lot [employer] [id number] Lifestar 14mm 60mm 80cm Stent Biliary - [id number] Implanted:Qty: 1 on 01/10/2021 at [facility] [employer] 09/15/2023 [id number] / / [id number] Procedures Procedure Name Priority Date/Time Associated Diagnosis Comments US LIVER W COMPLETE DOPPLER Schedule Routine, Read Routine (OP Routine) 07/05/2024 11:25 AM TEACHER TUTOR Hepatic cirrhosis, unspecified hepatic cirrhosis type, unspecified whether ascites present (HCC) EGFR Routine 06/02/2024 8:48 AM TEACHER TUTOR Hepatic cirrhosis, unspecified hepatic cirrhosis type, unspecified whether ascites present (HCC) COMPREHENSIVE METABOLIC PANEL Routine 06/02/2024 8:48 AM TEACHER TUTOR Hepatic cirrhosis, unspecified hepatic cirrhosis type, unspecified whether ascites present (HCC) PROTIME-INR Routine 06/02/2024 8:48 AM TEACHER TUTOR Hepatic cirrhosis, unspecified hepatic cirrhosis type, unspecified whether ascites present (HCC) [id number], TUMOR MARKER Routine 06/02/2024 8:48 AM TEACHER TUTOR Hepatic cirrhosis, unspecified hepatic cirrhosis type, unspecified whether ascites present (HCC) BILIRUBIN, DIRECT Routine 06/02/2024 8:4 8 AM TEACHER TUTOR Hepatic cirrhosis, unspecified hepatic cirrhosis type, unspecified whether ascites present (HCC) HEMOGLOBIN A1C STAT 11/23/2023 8:40 AM CDT LIPID PANEL Routine 05/20/2021 9:36 AM TEACHER TUTOR Morbid obesity with body mass index (BMI) of 40.0 to 44.9 in adult (HCC) ALBUMIN CREATININE RATIO, URINE Routine 05/20/2021 9:36 AM TEACHER TUTOR Diabetic neuropathy associated with type 2 diabetes mellitus (HCC) COLONOSCOPY 12/17/2020 10:24 AM CDT SERUM HEPATITIS PANEL Routine 08/23/2015 5:23 PM CDT from Last 3 Months or Most Recently Relevant to Health Maintenance Results * US Liver W Complete Doppler (C) (07/05/2024 11:25 AM TEACHER TUTOR) Anatomical Region Laterality Modality Abdomen N/A Ultrasound 07/05/2024 11:3 7 AM TEACHER TUTOR Impressions 07/05/2024 11:57 AM TEACHER TUTOR 1. Sonographic features of cirrhosis. 2. US [...] Maurice Paul M.D. Narrative 07/05/2024 11:57 AM TEACHER TUTOR EXAMINATION: 1. LIVER SONOGRAM 2. LIVER DOPPLER [...] Re sult * eGFR (06/02/2024 8:48 AM TEACHER TUTOR) eGFR >90 >=60 mL/min/1. 73 m2 Comment: [...] last reviewed 2021. Blood 06/02/2024 8:48 AM TEACHER TUTOR 06/02/2024 9:05 AM TEACHER TUTOR Nilton Whatley MD LAB BLOOD ORDERABLES Final Result Performing Organization Address City/State/[facility] Co co Phone Number [facility] Department [place] [address] * [id number], Tumor Marker (06/02/2024 8:48 AM TEACHER TUTOR) alpha Fetoprotein <2.0 <=8.3 ng/mL Comment: Interpretive [...] 2018;[id number] Jeyson Sanches et al. Clin Chem 2014;[id number]. Current interpretive data was last revised 2022. Blood 06/02/2024 8:48 AM TEACHER TUTOR 06/02/2024 9:00 AM TEACHER TUTOR us Nilton Whatley MD LAB BLOOD ORDERABLES Final Result [facility] Department [place] [address] * (ABNORMAL) Protime-INR (06/02/2024 8:48 AM TEACHER TUTOR) PT 13.5(H) 9.7 - 13.0 sec INR 1.24(H) 0.90 - 1.20 [facility] Comment: Interpretive data Oral anticoagulant therapeutic ranges: Venous thromboembolism prophylaxis or treatment: 2.0-3.0 CARDIOLOGY Standard range: 2.0-3.0 High-intensity range: 2.5-3.5 Refer to indication-specific guidelines for appropriate target ranges for prosthetic heart valve replacement. Current interpretive data was last revised on 2019. Blood 06/02/2024 8:48 AM TEACHER TUTOR 06/02/2024 9:00 AM TEACHER TUTOR us Nilton Whatley MD LAB BLOOD ORDERABLES Final Result Performing Organization Address City/[facility] Co de Phone Number [facility] Department [place] [address] * (ABNORMAL) Bilirubin, direct (06/02/2024 8:48 AM TEACHER TUTOR) Bilirubin, direct 0.6(H) 0.1 - 0.3 mg/dL Comment:Hemolyzed; result ma y be falsely decreased Blood 06/02/2024 8:48 AM TEACHER TUTOR 06/02/2024 9:00 AM TEACHER TUTOR us Nilton Whatley MD LAB BLOOD ORDERABLES Final Result Performing Organization Address City/[facility] Co de Phone Number [facility] Department [place] [address] * (ABNORMAL) Comprehensive metabolic panel (06/02/2024 8:48 AM TEACHER TUTOR) Sodium 141 135 - 145 mmol/L Potassium, pl 4.3 3.3 - 4.9 mmol/L [facility] Comment:Hemolyzed; Potassium value may be falsely elevated by as much as 0.3-0.5 mmol/L. Suggest redraw and reanalysis. Chloride 107 97 - 110 mmol/L [facility] CO2 27 22 - 32 mmol/L [facility] Anion gap 7 2 - 15 mmol/L [facility] BUN 13 6 - 25 mg/dL [facility] Creatinine 0.76(L) 0.80 - 1.30 mg/dL [facility] Glucose 242(H) 70 - 199 mg/dL [facility] Comment: Interpretive Data Fasting glucose >/= 126 [...] 2022. Calcium 9.6 8.5 - 10.3 mg/dL [facility] Bilirubin, total 3.0(H) 0.1 - 1.2 mg/dL [facility] Protein, pl 6.9 6.5 - 8.5 g/dL [facility] Albumin 3.8 3.5 - 5.0 g/dL [facility] Alk phos 90 40 - 130 Units/L [facility] ALT 19 7 - 55 Units/L [facility] AST 38 10 - 50 Units/L [facility] Comment:Hemolyzed; result ma y be falsely elevated Blood 06/02/2024 8:48 AM TEACHER TUTOR 06/02/2024 9:00 AM TEACHER TUTOR Nilton Whatley MD LAB BLOOD ORDERABLES Final Result Performing Organization Address City/[facility] Co de Phone Number [facility] MICHELH [facility] Department [place] [address] * Albumin Creatinine Ratio, Urine (05/20/2021 9:36 AM TEACHER TUTOR) Albumin Ur <12.0 mg/L [facility] Comment: Interpretive Data No reference range established. Current interpretive data was last revised 2018. Creatinine Ur 47.6 mg/dL [facility] Comment: Interpretive Data No reference range established. Current interpretive data was last revised 2018. Albumin Creatinine Ratio, Ur <25 1 - 29 mg/g [facility] Urine 05/20/2021 9:36 AM TEACHER TUTOR 05/20/2021 7:41 PM TEACHER TUTOR Simon Lundberg MD LAB URINE ORDERABLES Final Result Performing Organization Address City/[facility] Co de Phone Number MOHINDER [id number] [facility] Department [place] [address] * (ABNORMAL) Lipid panel (05/20/2021 9:36 AM TEACHER TUTOR) Cholesterol 110 30 - 199 mg/dL MOHINDER [...] on 2017. Triglycerides 149 <=149 mg/dL [facility] MARTNIEZ Comment: Interpretive Data Ages < or = [...] 3 MOHINDER MICHELLE Blood 05/20/2021 9:36 AM TEACHER TUTOR 05/20/2021 7:41 PM TEACHER TUTOR Simon Lundberg MD LAB BLOOD ORDERABLES Final Result [facility] [id number] [facility] Department [place] [address] * COLONOSCOPY (12/17/2020 10:24 AM CDT) Anatomical Region Laterality Modality Other Narrative Procedure Note Elian Gross MD - 12/17/2020 10:24 AM CDT ENDOSCOPY LAB Patient Name: Camilo Curry Procedure Date: 12/17/2020 10:24 AM Date of : 1970 Admit Type: Outpatient Age: 50 Gender: Male Attending MD: Elian Vivar M.D. Room: [facility] ENDOSCOPY ROOM 02 Note Status: Finalized [...] the physician, the nurse, the anesthesiologist, the assistant service manager and thetechnician in the pre-procedure area in [...] The scope was passed under direct vision.The [id number] was introduced through the anusand advanced to the hepatic flexure. The colonoscopywas performed without difficulty. The patient tolerated the procedure well. The quality of the bowel preparation was unsatisfactory. The quality of the bowel preparation was evaluated using the BBPS([place] Bowel Preparation Scale) with scores of: RightColon [...] 10:24 AM us Elian Draper MD ENDOSCOPY UT OCEDURES Final Result * Serum Hepatitis panel (08/23/2015 5:23 PM CDT) HBV surface ag Negative NEG HISTO RICAL RESULTS HCV ab Negative NEG HISTORICAL RESULTS Comment: Interpretive Data If confirmation is required, call Laboratory Customer Service to request sample to be sent to [facility] for Hepatitis C Virus (HCV) RNA Detection and Quantitation by Real-Time Reverse Hide Dropper-PCR (RT-PCR). Current interpretive data was last revised [...] Recently Relevant to Health Maintenance Insurance [facility] [facility] [employer] [facility] [employer] [facility] Advance Directives For more information, please contact: [phone] * Full Code (Latest Code Status on [...] 11:57 AM 02/03/2018 5:26 AM Care Teams Electrical Transmission Engineer Relationship Specialty Start Date End Date Braydon Pavon PA [address] [place] [address] PCP - General 08/23/21 [place] [id number] [address] [facility] [address], [place] [address] Consulting Physician Endocrinology 05/20/21 [place] [id number] [address] [facility] [address] [place] [address] Consulting Physician Internal Medicine 05/20/21
--- OUTSIDE RECORDS SUMMARY | 2024-07-27 14:55 | XMS_ITS | Clinical Summary ---
Author Organization [facility] Address [address] [place] [address] Care Team Providers Care Insurance Sales Professional Name Role Phone Braydon Pavon Primary Care Provider [phone] Source Comments [facility],non-owned Affiliates and Associated Physician Practices is amultiple site organization consisting of ambulatory clinics and hospital sitesin [place], [place], [place] and [place]. This disclosure is being madepursuant to the Care Everywhere program and may not contain all information available regarding this patient. Last updated 18.[facility] Allergies Active Allergy Reactions Criticality Noted Date [...] WC - CONFIRMED WITH [facility] [phone], Reason: Provider adjusted, Reported on 06/09/2024 blood [...] dissolve on the tongue Active HYDROcodone-aceta minophen (Caruthers) 10-325 MG tablet Take 1 (one) tablet [...] Insulin Regular Human (HUMULIN R U-500 [place]) Inject 200 Units subcutaneously 3 times daily [...] Department Care Team Description 06/08/2024 3:27 PM SENIOR SAFETY SUPPORT MANAGER - 06/10/2024 3:30 PM SENIOR SAFETY SUPPORT MANAGER Hospital Encounter [facility] 6N Telemetry [address] [place] [address] Louie Hi MD Fatima, Noor [...] care, and heating? Not very hard 06/08/2024 [facility] [place] of Occupat ional Health - Occupational Stress [...] any time in the past 12 m [facility], were you homeless or living in a intermediate (including now)? No 06/08/2024 Sex and Gender Information Value Date Recorded Sex Assigned at Not on file Gender Identity Not on file Sexual Orientation Not on file Last Filed Vital Signs Vital Sign Reading Time Taken Comments Blood Pressure 110/69 06/10/2024 3:45 PM SENIOR SAFETY SUPPORT MANAGER Pulse 81 06/10/2024 3:45 PM SENIOR SAFETY SUPPORT MANAGER Temperature 36.8 C (98.2 F) 06/10/2024 3:45 PM SENIOR SAFETY SUPPORT MANAGER Respiratory Rate 19 06/10/2024 3:45 PM SENIOR SAFETY SUPPORT MANAGER Oxygen Saturation 94% 06/10/2024 3:45 PM SENIOR SAFETY SUPPORT MANAGER Inhaled Oxygen Concentration - - Weight 99.8 kg (220 lb) 06/08/2024 3:47 PM SENIOR SAFETY SUPPORT MANAGER Height 170.2 cm (5' 7 ) 06/08/2024 3:47 PM SENIOR SAFETY SUPPORT MANAGER Body Mass Index 34.46 06/08/2024 3:47 PM SENIOR SAFETY SUPPORT MANAGER Plan of Treatment Health Maintenance Due Date [...] CARDIAC RHYTHM STRIP ORDER 06/13/2024 10:53 PM SENIOR SAFETY SUPPORT MANAGER ECHO COMPLETE W CONTRAST Routine 06/10/2024 1:18 PM SENIOR SAFETY SUPPORT MANAGER Acute congestive heart failure, unspecified heart failure type GLUCOSE - POINT OF CARE Routine 06/10/2024 12:48 PM SENIOR SAFETY SUPPORT MANAGER GLUCOSE - POINT OF CARE Routine 06/10/2024 7:58 AM SENIOR SAFETY SUPPORT MANAGER GLUCOSE - POINT OF CARE Routine 06/10/2024 7:14 AM SENIOR SAFETY SUPPORT MANAGER GLUCOSE - POINT OF CARE Routine 06/10/2024 6:41 AM SENIOR SAFETY SUPPORT MANAGER BASIC METABOLIC PANEL (CALCIUM TOTAL) AM Draw 06/10/2024 4:45 AM SENIOR SAFETY SUPPORT MANAGER CBC W/O DIFFERENTIAL AM Draw 06/10/2024 4:45 AM SENIOR SAFETY SUPPORT MANAGER GLUCOSE - POINT OF CARE Routine 06/09/2024 9:38 PM SENIOR SAFETY SUPPORT MANAGER GLUCOSE - POINT OF CARE Routine 06/09/2024 5:17 PM SENIOR SAFETY SUPPORT MANAGER GLUCOSE - POINT OF CARE Routine 06/09/2024 12:40 PM SENIOR SAFETY SUPPORT MANAGER PT EVAL AND TREAT Routine 06/09/2024 12: 04 PM SENIOR SAFETY SUPPORT MANAGER GLUCOSE - POINT OF CARE Routine 06/09/2024 7:48 AM SENIOR SAFETY SUPPORT MANAGER GLUCOSE - POINT OF CARE Routine 06/09/2024 6:07 AM SENIOR SAFETY SUPPORT MANAGER HEMOGLOBIN A1C Routine 06/09/2024 1:59 AM SENIOR SAFETY SUPPORT MANAGER CBC W/O DIFFERENTIAL Routine 06/09/2024 1:59 AM SENIOR SAFETY SUPPORT MANAGER COMPREHENSIVE METABOLIC PANEL Routine 06/09/2024 1:59 AM SENIOR SAFETY SUPPORT MANAGER LIPID PROFILE Routine 06/09/2024 1:59 AM SENIOR SAFETY SUPPORT MANAGER MAGNESIUM BLOOD Routine 06/09/2024 1:59 AM SENIOR SAFETY SUPPORT MANAGER PHOSPHORUS BLOOD Routine 06/09/2024 1:59 AM SENIOR SAFETY SUPPORT MANAGER TSH REFLEX FREE T4 Routine 06/09/2024 1: 59 AM SENIOR SAFETY SUPPORT MANAGER GLUCOSE - POINT OF CARE Routine 06/08/2024 8:59 PM SENIOR SAFETY SUPPORT MANAGER XR CHEST 1VW PORTABLE Routine 06/08/2024 5:04 PM SENIOR SAFETY SUPPORT MANAGER Elevated troponin B-TYPE NATRIURETIC PEPTIDE STAT 06/08/2024 4:39 PM SENIOR SAFETY SUPPORT MANAGER MAGNESIUM BLOOD STAT 06/08/2024 4:39 PM SENIOR SAFETY SUPPORT MANAGER TROPONIN-I HIGH SENSITIVE STAT 06/08/2024 4:39 PM SENIOR SAFETY SUPPORT MANAGER COMPREHENSIVE METABOLIC PANEL STAT 06/08/2024 4:39 PM SENIOR SAFETY SUPPORT MANAGER CBC W AUTO DIFFERENTIAL STAT 06/08/2024 4:39 PM SENIOR SAFETY SUPPORT MANAGER GLUCOSE - POINT OF CARE Routine 06/08/2024 3:34 PM SENIOR SAFETY SUPPORT MANAGER from Last 3 Months Results * CARDIAC RHYTHM STRIP ORDER (06/13/2024 10:53 PM SENIOR SAFETY SUPPORT MANAGER) Narrative 06/13/2024 10:53 PM SENIOR SAFETY SUPPORT MANAGER Ordered by an unspecified provider. Scanned Document CARDIAC SERVICES ORD ERABLES * ECHO COMPLETE W CONTRAST (06/10/2024 1:18 PM SENIOR SAFETY SUPPORT MANAGER) LA vol index 0.022 l/m SSM CV [...] Region Laterality Modality Ultrasound 06/10/2024 9:00 AM SENIOR SAFETY SUPPORT MANAGER Narrative 06/10/2024 1:53 PM SENIOR SAFETY SUPPORT MANAGER Summary * The left ventricle is normal [...] 9:00 AM Patient Status: I/P Study Site: [facility] Primary Location: [facility] EStudy Info Exam Type: ECHO COMPLETE W CONTRAST Indications I50.9 - Acute congestive heart failure, unspecified heart failure type (HCC) Procedure(s) * A complete 2D, color Doppler, spectral Doppler and M-Mode transthoracic echocardiogram was performed with Definity. Staff Referring Physician: López Yeager Ordering Provider: López Yeager Attending Physician: López Yeager Police Magistrate: Raven Harrison Left Ventricle The left ventricle [...] 9:00 AM Patient Status: I/P Study Site: [facility] Primary Location: [facility] EStudy Info Exam Type: ECHO COMPLETE W CONTRAST Indications I50.9 - Acute congestive heart failure, unspecified heart failuretype (HCC) Procedure(s) * A complete 2D, color Doppler, spectral Doppler and M-Modetransthoracic echocardiogram was performed with Definity. Staff Referring Physician: López Yeager Ordering Provider: López Yeager Attending Physician: López Yeager Police Magistrate: Raven Harrison Left Ventricle The left ventricle [...] - POINT OF CARE (06/10/2024 12:48 PM SENIOR SAFETY SUPPORT MANAGER) Only the most recent of11 resultswithin the time period is included. Pathologist [facility] [place] Glucose WB/POC 159(H) 70 - 99 mg/dL 06/10/2024 12:53 PM SENIOR SAFETY SUPPORT MANAGER [facility] Specimen Type Cap Fingerstick 2024 12:53 PM SENIOR SAFETY SUPPORT MANAGER [facility] Blood BLOOD SPECIMEN / Unknown 06/10/2024 12:48 PM SENIOR SAFETY SUPPORT MANAGER 06/10/2024 12:53 PM SENIOR SAFETY SUPPORT MANAGER Olimpia No MD LAB - POINT OF CARE ORDERABLES [facility] [address] [place] [address] * (ABNORMAL) CBC W/O DIFFERENTIAL (06/10/2024 4:45 AM SENIOR SAFETY SUPPORT MANAGER) Only the most recent of2 resultswithin the time period is included. Pathologist [facility] [place] WBC 2.3(L) 4.0 - 10.7 x10E9/L 06/10/2024 5:36 AM SENIOR SAFETY SUPPORT MANAGER [facility] RBC Count 4.44 4.30 - 5.80 x10E12/L 06/10/2024 5:36 AM [facility] Hemoglobin 13.2(L) 13.3 - 17.5 g/dL 06/10/2024 5:36 AM [facility] Hematocrit 37.8(L) 38.7 - 51.1 % 06/10/2024 5:36 AM [facility] MCV 85.1 80.0 - 98.0 fL 06/10/2024 5:36 AM [facility] MCH 29.7 26.7 - 33.6 pg 06/10/2024 5:36 AM [facility] MCHC 34.9 31.7 - 36.3 g/dL 06/10/2024 5:36 AM [facility] RDW-CV 15.2(H) 11.3 - 14.8 % 06/10/2024 5:36 AM [facility] Platelet Count 64(L) 150 - 420 x10E9/L 06/10/2024 5:36 AM [facility] MPV 10.9 7.8 - 11.4 fL 06/10/2024 5:36 AM [facility] Blood BLOOD SPECIMEN / Unknown Venipuncture / Unknown 06/10/2024 4:45 AM SENIOR SAFETY SUPPORT MANAGER 06/10/2024 5:01 AM [facility] Olimpia No MD LAB - HEMATOLOGY ORD ERABLES [facility] [address] [place] [address] * (ABNORMAL) BASIC METABOLIC PANEL (CALCIUM TOTAL) (06/10/2024 4:45 AM [facility]) Glucose 107(H) 70 - 99 mg/dL 06/10/2024 5:25 AM [facility] Sodium 139 136 - 145 mmol/L 06/10/2024 5:25 AM [facility] Potassium 3.4(L) 3.5 - 5.1 mmol/L 06/10/2024 5:25 AM [facility] Chloride 107 98 - 107 mmol/L 06/10/2024 5:25 AM [facility] CO2 22 22 - 29 mmol/L 06/10/2024 5:25 AM [facility] Calcium 8.2(L) 8.4 - 10.4 mg/dL 06/10/2024 5:25 AM [facility] Anion Gap 10 6 - 16 mmol/L 06/10/2024 5:25 AM [facility] BUN 15 7 - 26 mg/dL 06/10/2024 5:25 AM [facility] Creatinine 0.70(L) 0.72 - 1.25 mg/dL 06/10/2024 5:25 AM [facility] eGFR by CKD-EPI >90 >=90 mL/min/1.7 3 m2 06/10/2024 5:25 AM [facility] Blood BLOOD SPECIMEN / Unknown Venipuncture / Unknown 06/10/2024 4:45 AM SENIOR SAFETY SUPPORT MANAGER 06/10/2024 5:01 AM SENIOR SAFETY SUPPORT MANAGER Olimpia No MD LAB - CHEMISTRY LIONEL WHITT Performing Organization Address [facility] Co de Phone Number [facility] [address] [place], [place] [id number] * TSH REFLEX FREE T4 (06/09/2024 1:59 AM SENIOR SAFETY SUPPORT MANAGER) TSH 0.559 0.350 - 4.940 uIU/mL 06/09/2024 2:56 AM [facility] Blood BLOOD SPECIMEN / Unknown Venipuncture / Unknown 06/09/2024 1:59 AM SENIOR SAFETY SUPPORT MANAGER 06/09/2024 2:15 AM SENIOR SAFETY SUPPORT MANAGER López Yeager MD LAB - CHEMISTRY ORDKunal WHITT Performing Organization Address [facility] Co de Phone Number [facility] [address] [place] [address] * (ABNORMAL) HEMOGLOBIN A1C (06/09/2024 1:59 AM SENIOR SAFETY SUPPORT MANAGER) Hemoglobin A1c 9.1(H) <5.7 % 06/09/2024 2:28 AM SENIOR SAFETY SUPPORT MANAGER [facility] Estimated Average Glucose 214 mg/dL 06/09/2024 2:28 AM SENIOR SAFETY SUPPORT MANAGER [facility] Blood BLOOD SPECIMEN / Unknown Venipuncture / Unknown 06/09/2024 1:59 AM SENIOR SAFETY SUPPORT MANAGER 06/09/2024 2:15 AM SENIOR SAFETY SUPPORT MANAGER [facility] - 06/09/2024 2:28 AM [facility] HbA1c Interpretation: Normal: < [...] Yeager MD LAB - CHEMISTRY LIONEL WHITT [facility] Organization Address City/State/ZIP Co de Phone Number [facility] [address] [place] [address] * (ABNORMAL) COMPREHENSIVE METABOLIC PANEL (06/09/2024 1:59 AM SENIOR SAFETY SUPPORT MANAGER) Only the most recent of2 resultswithin the time period is included. Pathologist [facility] [place] Glucose 220(H) 70 - 99 mg/dL 06/09/2024 3:01 AM [facility] Sodium 134(L) 136 - 145 mmol/L 06/09/2024 3:01 AM [facility] Potassium 4.2 3.5 - 5.1 mmol/L 06/09/2024 3:01 AM [facility] Chloride 104 98 - 107 mmol/L 06/09/2024 3:01 AM [facility] CO2 21(L) 22 - 29 mmol/L 06/09/2024 3:01 AM [facility] Calcium 8.1(L) 8.4 - 10.4 mg/dL 06/09/2024 3:01 AM [facility] Anion Gap 9 6 - 16 mmol/L 06/09/2024 3:01 AM [facility] BUN 18 7 - 26 mg/dL 06/09/2024 3:01 AM [facility] Creatinine 0.85 0.72 - 1.25 mg/dL 06/09/2024 3:01 AM [facility] Alkaline Phosphatase 65 40 - 150 U/L 06/09/2024 3:01 AM [facility] ALT 14 0 - 55 U/L 06/09/2024 3:01 AM [facility] AST 50(H) 5 - 34 U/L 06/09/2024 3:01 AM [facility] Protein Total 5.8(L) 6.4 - 8.3 gm/dL 06/09/2024 3:01 AM [facility] Albumin 2.8(L) 3.4 - 5.0 gm/dL 06/09/2024 3:01 AM [facility] Bilirubin Total 3.2(H) 0.2 - 1.2 mg/dL 06/09/2024 3:01 AM [facility] eGFR by CKD-EPI >90 >=90 mL/min/1.7 3 m2 06/09/2024 3:01 AM [facility] Blood BLOOD SPECIMEN / Unknown Venipuncture / Unknown 06/09/2024 1:59 AM SENIOR SAFETY SUPPORT MANAGER 06/09/2024 2:15 AM [facility] López Yeager MD LAB - CHEMISTRY LIONEL WHITT [facility] [address] [place] [address] * PHOSPHORUS BLOOD (06/09/2024 1:59 AM [facility]) [facility] Phosphorus 3.1 2.5 - 4.5 mg/dL 06/09/2024 2:40 AM [facility] Blood BLOOD SPECIMEN / Unknown Venipuncture / Unknown 06/09/2024 1:59 AM SENIOR SAFETY SUPPORT MANAGER 06/09/2024 2:15 AM SENIOR SAFETY SUPPORT MANAGER López Yeager MD LAB - CHEMISTRY LIONEL WHITT Performing Organization Address [facility] de Phone Number [facility] [address] [place] [id number] * MAGNESIUM BLOOD (06/09/2024 1:59 AM SENIOR SAFETY SUPPORT MANAGER) Only the most recent of2 resultswithin the time period is included. Magnesium 1.7 1.6 - 2.6 mg/dL 06/09/2024 2:40 AM SENIOR SAFETY SUPPORT MANAGER [facility] Blood BLOOD SPECIMEN / Unknown Venipuncture / Unknown 06/09/2024 1:59 AM SENIOR SAFETY SUPPORT MANAGER 06/09/2024 2:15 AM SENIOR SAFETY SUPPORT MANAGER López Yeager MD LAB - CHEMISTRY LIONEL WHITT Performing Organization Address [facility] de Phone Number [facility] [address] [place] [phone] * (ABNORMAL) LIPID PROFILE (06/09/2024 1:59 AM SENIOR SAFETY SUPPORT MANAGER) Cholesterol 69 <200 mg/dL 06/09/2024 2:40 AM [facility] Triglycerides 99 <150 mg/dL 06/09/2024 2:40 AM [facility] HDL Cholesterol 19(L) >40 mg/dL 2:40 AM [facility] LDL Calculated 30 <130 mg/dL 06/09/2024 2:40 AM [facility] VLDL Calculated 20 <=30 mg/dL 2:40 AM [facility] Chol HDL Ratio 3.6 <4.5 06/09/2024 2:40 AM [facility] LDL/HDL Ratio 1.6 <5.0 06/09/2024 2:40 AM [facility] Blood BLOOD SPECIMEN / Unknown Venipuncture / Unknown 06/09/2024 1:59 AM SENIOR SAFETY SUPPORT MANAGER 06/09/2024 2:15 AM SENIOR SAFETY SUPPORT MANAGER López Yeager MD LAB - CHEMISTRY LIONEL WHITT [facility] [address] [place] [address] * XR Chest 1Vw Portable (06/08/2024 5:04 PM SENIOR SAFETY SUPPORT MANAGER) Anatomical Region Laterality Modality Chest Computed Radiogr aphy 06/08/2024 6:49 PM SENIOR SAFETY SUPPORT MANAGER Impressions 06/08/2024 6:50 PM SENIOR SAFETY SUPPORT MANAGER IMPRESSION: No acute disease in the chest. Borderline cardiomegaly. > Interpreting Provider: Harry England MD on 06/08/2024 6:50 PM Narrative 06/08/2024 6:50 PM SENIOR SAFETY SUPPORT MANAGER PROCEDURE: XR CHEST 1VW PORTABLE DATE/TIME OF [...] silhouette. There are no definite pleural effusions. accounts receivable analyst wires obscure the chest bilaterally. Procedure Note [...] (ABNORMAL) TROPONIN-I HIGH SENSITIVE (06/08/2024 4:39 PM SENIOR SAFETY SUPPORT MANAGER) Troponin I High Sensitive 54(H) <=35 ng/L 06/08/2024 5:21 PM [facility] Blood BLOOD SPECIMEN / Unknown Venipuncture / Unknown 06/08/2024 4:39 PM SENIOR SAFETY SUPPORT MANAGER 06/08/2024 4:55 PM SENIOR SAFETY SUPPORT MANAGER López Yeager MD LAB - CHEMISTRY LIONEL WHITT [facility] Organization Address City/State/ZIP Co de Phone Number [facility] [address] [place] [address] * (ABNORMAL) CBC W AUTO DIFFERENTIAL (06/08/2024 4:39 PM SENIOR SAFETY SUPPORT MANAGER) [facility] WBC 4.2 4.0 - 10.7 x10E9/L 06/08/2024 5:12 PM [facility] RBC Count 5.01 4.30 - 5.80 x10E12/L 06/08/2024 5:12 PM [facility] Hemoglobin 14.8 13.3 - 17.5 g/dL 06/08/2024 5:12 PM [facility] Hematocrit 42.1 38.7 - 51.1 % 06/08/2024 5:12 PM [facility] MCV 84.0 80.0 - 98.0 fL 06/08/2024 5:12 PM [facility] MCH 29.5 26.7 - 33.6 pg 06/08/2024 5:12 PM [facility] MCHC 35.2 31.7 - 36.3 g/dL 06/08/2024 5:12 PM [facility] RDW-CV 15.9(H) 11.3 - 14.8 % 06/08/2024 5:12 PM [facility] Platelet Count 67(L) 150 - 420 x10E9/L 06/08/2024 5:12 PM [facility] MPV 10.4 7.8 - 11.4 fL 06/08/2024 5:12 PM [facility] Neutrophil % 67.5 41.0 - 74.0 % 06/08/2024 5:12 PM [facility] Lymphocyte % 15.4(L) 17.0 - 47.0 % 06/08/2024 5:12 PM SENIOR SAFETY SUPPORT MANAGER [facility] Monocyte % 15.9(H) 3.0 - 11.0 % 06/08/2024 5:12 PM SENIOR SAFETY SUPPORT MANAGER [facility] Eosinophil % 0.0 0.0 - 7.0 % 06/08/2024 5:12 PM SENIOR SAFETY SUPPORT MANAGER [facility] Basophil % 0.7 0.0 - 1.6 % 06/08/2024 5:12 PM SENIOR SAFETY SUPPORT MANAGER [facility] Immature Granulocytes % 0.5 0.0 - 1.0 % 06/08/2024 5:12 PM SENIOR SAFETY SUPPORT MANAGER [facility] Neutrophil Absolute 2.80 1.60 - 7.50 x10E9/L 06/08/2024 5:12 PM SENIOR SAFETY SUPPORT MANAGER [facility] Lymphocyte Absolute 0.64(L) 1.00 - 4.40 x10E9/L 06/08/2024 5:12 PM [facility] Monocyte Absolute 0.66 0.15 - 1.00 x10E9/L 06/08/2024 5:12 PM [facility] Eosinophil Absolute 0.00 0.00 - 0.60 x10E9/L 06/08/2024 5:12 PM SENIOR SAFETY SUPPORT MANAGER [facility] Basophil Absolute 0.03 0.00 - 0.13 x10E9/L 06/08/2024 5:12 PM SENIOR SAFETY SUPPORT MANAGER [facility] Blood BLOOD SPECIMEN / Unknown Venipuncture / Unknown 06/08/2024 4:39 PM SENIOR SAFETY SUPPORT MANAGER 06/08/2024 4:55 PM SENIOR SAFETY SUPPORT MANAGER López Yeager MD [facility] Organization Address City/State/[facility] Co de Phone Number [facility] [address] [place] [address] * (ABNORMAL) B-TYPE NATRIURETIC PEPTIDE (06/08/2024 4:39 PM SENIOR SAFETY SUPPORT MANAGER) BNP 345(H) <=100 pg/mL 06/08/2024 5:19 PM SENIOR SAFETY SUPPORT MANAGER [facility] Blood BLOOD SPECIMEN / Unknown Venipuncture / Unknown 06/08/2024 4:39 PM SENIOR SAFETY SUPPORT MANAGER 06/08/2024 4:55 PM SENIOR SAFETY SUPPORT MANAGER López Yeager MD LAB - CHEMISTRY ORDE [facility] [address] [place] [address] from Last 3 Months Advance Directives * Full Code (Latest Code Status on File) Date Activated Date Inactivated Comments 06/08/2024 3:48 PM 06/10/2024 7:18 PM Care Teams Insurance Sales Professional Relationship Specialty Start Date End Date Braydon Pavon PA [address] [place] [address] PCP - General Physician Frit Burner 07/14/23
--- OUTSIDE RECORDS SUMMARY | 2024-07-27 14:55 | XMS_ITS | Continuity of Care Document ---
Author Organization [facility] Address [address] [facility] [place] [address] Phone Care Team Providers Care Light Rail Vehicle Operator Name Role Phone Roosevelt Mcgee MD Unavailable Unavailable Allergies, Adverse Reactions, Alerts Substance Reaction Status Criticality CIPROFLOXACIN HCL Active No Informa tion ciprofloxacin Active No Information erythromycin base Active No Informa tion Sulfa (Sulfonamide Antibiotics) Active No Information PENICILLIN Active No Information Medications Medication Instructions Dosage Effective Dates (start - stop) Status Comments [place] 10 mg-325 mg tablet take 1 tablet [...] Copied on Encounter OFFICE/OUTPA TIENT VISIT, EST [facility], [address], [id number], [place] tel:[phone] [facility] anxiety1 (chief complaint) DM (chief complaint) liver cirrhosis (chief complaint) GERD1 (chief complaint) chronic pain (chief complaint) Type 2 diabetes mellitus without complicationsGenera lized Anxiety DisorderOther cirrhosis of liverChronic pain syndrome 2-[address], [id number] , . tel:[phone] Referring Provider: Roosevelt Mcgee [address] [place], [place], [id number]. tel:[phone] Family History Family Member Type Diagnosis Age [...] takes lantus, tradejnta, humalog. His BG is [id number]. Pt sees endo for his DM. Pt [...] Mental Status Date Cognitive Assessment Orientation - [place] ed to time, place, person, situation.
--- OUTSIDE RECORDS SUMMARY | 2024-07-27 14:55 | XMS_ITS | Encounter Summary ---
Author Organization [facility] Healthcare Address [address] [place] [address] Care Team Providers Care Marketing Production Manager Name Role Phone Braydon Pavon Primary Care Provider [phone] Nikolay Lancaster MD Unavailable [phone] Simon Lundberg MD Primary Care Provider [phone] Nacho Rodriguez MD Unavailable [phone] Elian Gross MD Unavailable Braydon Pavon Primary Care Provider [phone] Encounter Details Date Type Department Care Team (Late st Contact Info) Description 09/14/2020 Telephone [facility] [address] [place] [id number] Trice Aldana, RT Social History Tobacco Use [...] on file Legal Sex Male 2:52 PM [employer] Gender Identity Male 10/29/2020 12:37 PM CDT Sexual Orientation Straight 10/29/2020 12 :37 PM CDT documented as of this encounter Plan of Treatment Not on file documented as of this encounter Visit Diagnoses Not on filedocumented in this encounter Care Teams Marketing Production Manager Relationship Specialty Start Date End Date Braydon Pavon PA [address] [place] [address] PCP - General Family Practice 05/09/20 05/19/21 Simon Lundberg MD [address] [place] [address] PCP - General Family Medicine 05/20/21 08/22/21 Braydon Pavon PA [address] [place] [address] PCP - General 08/23/21 Nikolay Lancaster MD [address] [place] [address] 05/09/20 05/19/21 [place] [id number] [address] [facility] [address] [place] [address] Consulting Physician Endocrinology 05/20/21 [place] [id number] [address] [facility] [address] [place] [address] Consulting Physician Internal Medicine 05/20/21 documented as of this encounter
--- OUTSIDE RECORDS SUMMARY | 2024-07-27 14:55 | XMS_ITS | Encounter Summary ---
Author Organization [facility] Address [facility] [place] [address] Care Team Providers Care Manager Of Pharmacy Name Role Phone None, Provider Primary Care Provider Braydon Piedra Primary Care Provider [phone] Encounter Details Date Type Department Care Team (Late st Contact Info) Description 10/09/2018 Abstract SFL CONVERSION [address] [place] [address] , Generic Conversion, Social History Tobacco Use [...] Description 08/30/2024 12:00 PM CDT Office Visit [facility] Diabetes and Endocrinology - [address] [phone] Eva Power MD [address] [place] [phone] documented as of this encounter Visit Diagnoses Not on filedocumented in this encounter Care Teams Manager Of Pharmacy Relationship Specialty Start Date End Date None, Provider, PCP - General 02/08/19 03/01/19 Braydon Pavon PA [address] [place] [address] PCP - General PHYSICIAN CUSTOMER MANAGEMENT SPECIALIST 03/02/19 documented as of this encounter
--- OUTSIDE RECORDS SUMMARY | 2024-07-27 14:55 | XMS_ITS | Clinical Summary ---
Author Organization [facility] Address [facility] [place] [address] Care Team Providers Care Conduit Bender Name Role Phone Braydon Pavon Primary Care Provider [phone] Allergies Active Allergy Reactions Criticality Noted Date [...] (two) times daily. Active vitamin D2, ergocalciferol, [address] UNITS capsule Take 1 capsule (50,000 Units total) by mouth every 30 (thirty) days. Active Insulin Pen Needle (PEN NEEDLES) 32G X 4 MM Misc Inject 3 times daily 08/04/19 20 Active ONE TOUCH ULTRA TEST STRIPS test stripIndications:T ype 2 diabetes mellitus with hyperglycemia, with long-term current use of insulin ([facility]) Test 4 times daily 200 strip [...] into the skin once a week. 07/03/19 Active famotidine (PEPCID) 20 MG tablet 05/20/19 Active HYDROcodone-acetam inophen (NORCO) 10-325 MG tablet [...] hyperglycemia, with long-term current use of insulin ([facility]) Inject 0.4 mLs (200 Units total) into the skin 3 (three) times daily before meals. 18 mL 11 02/19/20 Active Additional Information Patient taking differently:200 Units Subcutaneous 3 times daily before meals,Pt taking 200 units three times, Reported on 05/31/2024 Continuous Glucose Sensor (DEXCOM G7 SENSOR) MiscIndications:Ty pe 2 diabetes mellitus with hyperglycemia, with long-term current use of insulin ([facility]) CHANGE SENSOR EVERY 10 DAYS 3 each 11 03/01/20 Active tirzepatide (MOUNJARO) 2.5 MG/0.5ML injectionIndicatio ns:Diabetes [...] hyperglycemia, with long-term current use of insulin ([facility]) Take 1 tablet (500 mg total) by mouth daily with supper. 90 tablet 1 05/31/19 Active Active Problems Problem Noted Date Diagnosed Date Diabetic neuropathy associat ed with type 2 diabetes mellitus ([facility]) 10/29/2020 Lumbar degenerative disc disease 05/23/2019 Essential hypertension 07/21/2018 TRACY (obstructive sleep apnea) 09/14/2016 Thrombocytopenia 09/14/2016 Esophageal varices ([facility]) 09/09/2016 Hepatic encephalopathy ([facility]) 017 Type 2 diabetes mellitus wit h hyperglycemia, with long-term current use of insulin ([facility]) 09/09/2016 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 s/p TIPS in 2015. -RUQ today showing TIPS with slower velocity compared to 08/2017 but still patent, rec close FU. -rifaximin -holding lactulose for diarrhea -should have BB outpt Resolved Problems Problem Noted Date Diagnosed Date Resolved Date Bacterial endocarditis ([facility]) 05/14/2020 06/05/2024 BLAND (nonalcoholic steatohepatitis) 07/21/2018 04/05/2019 Diabetes mellitus, type 2 ([facility]) 02/02/2018 06/05/2024 Morbid obesity 12/09/2016 06/05/2024 History of upper gastrointestinal hemorrhage 6 04/05/2019 Encounters Date Type Department Care Team Description 05/31/2024 12:00 PM COACH CLEANER Office Visit [facility] Diabetes and Endocrinology - [address] [phone] Eva Power MD Type 2 Diabetes 05/31/2024 Travel 05/10/2024 Telephone [facility] Diabetes and Endocrinology - [address] [phone] Eva Power MD Called To Cancel Office [...] Comments Blood Pressure 134/77 05/31/2024 8:59 AM COACH CLEANER Pulse 84 05/31/2024 8:47 AM COACH CLEANER Temperature 36.8 C (98.3 F) 02/15/2024 1:54 PM CDT Respiratory Rate 11 01/23/2024 12:30 AM CDT Oxygen Saturation 96% 05/31/2024 8:47 AM COACH CLEANER Inhaled Oxygen Concentration - - Weight 100.2 kg (221 lb) 02/15/2024 1:54 PM CDT Height 172.7 cm (5' 8 ) 05/31/2024 8:47 AM COACH CLEANER Body Mass Index 33.6 02/15/2024 1:54 PM CDT Plan of Treatment Upcoming Encounters Date Type Department Care Team (Late st Contact Info) Description 08/30/2024 12:00 PM CDT Office Visit [facility] Diabetes and Endocrinology - [address] [phone] Eva Power MD [address] [place] [phone] Health Maintenance Due Date Last Done Comments [...] Vaccines (1 of 2) 2020 COVID-19 Vaccine ( season) 2024 12/29/2020, 12/08/2020 Influenza Adult (#1) 2024 PHQ-2 (Physician Wainwright) 05/04/2024 02/15/2024 Hemoglobin A1C 08/29/2024 05/31/2024, 11/02, [...] this topic Medical Devices Implanted Type Area Gold Letterer Device Identifier Shelf Expiration Date Model / Serial / Lot [employer] Stent-01/02/2021 Implanted: 021 (Quantity not on file) Stent Abdomen [employer] R BARD [id number] / / Description:Non-clinical silvia ting demonstrated that [...] field of 720 Gauss/cm or less Maximum coeat-[id number]-[id number] specific absorption rate (IVANA) of 2-W/kg for 15 minutes of scanning for patient landmarks above the umbilicus. Maximum WB-IVANA of 1 W/kg for 15 min. of scanning for patient landmarks below the umbilicus. Procedures Procedure Name Priority Date/Time Associated Diagnosis Comments ALBUMIN URINE RANDOM W/CREATININE Routine 05/31/2024 10:36 AM COACH CLEANER Type 2 diabetes mellitus with hyperglycemia, with long-term current use of insulin ([facility] H[facility]/HCC) COLLECT.CAPILLARY (FNGR,HEEL,EAR) Routine 05/31/2024 8:47 AM COACH CLEANER Type 2 diabetes mellitus with hyperglycemia, with long-term current use of insulin ([facility]) GLUCOSE BLOOD, MONITOR DEVICE Routine 05/31/2024 Type 2 diabetes mellitus with hyperglycemia, with long-term current use of insulin ([facility]) HEMOGLOBIN, GLYCOSYLATED Routine 05/31/2024 Type 2 diabetes mellitus with hyperglycemia, with long-term current use of insulin ([facility]) from Last 3 Months Results * ALBUMIN/CREATININE RATIO, RANDOM URINE (05/31/2024 10:36 AM COACH CLEANER) [facility] MICROALBUMIN (U) 10.4 <20 MG/L 05/31/19 7:37 PM COACH CLEANER [facility] CREATININE RANDOM (U) 47.4 MG/DL 05/31/2024 7:37 PM COACH CLEANER [facility] ALBUMIN/CREAT RATIO 21.9 <30 MG/G 05/31/2024 7:37 PM COACH CLEANER [facility] URINE SPECIMEN / Unknown 05/31/2024 10:36 AM COACH CLEANER Eva Power MD URINE ORDERABLES Final Result Performing Organization Address City/[facility]/ZIP Co de Phone Number [facility] [address] [place] [address], [place] [phone] * HEMOGLOBIN, GLYCOSYLATED (05/31/2024) [facility] HGB A1C 10.3 % [address] [place] 05/31/2024 Eva Power MD LABORATORY Final Result [facility] [address] [facility] [place] [address], [place] [phone] * (ABNORMAL) GLUCOSE BLOOD, MONITOR DEVICE (05/31/2024) GLUCOSE WHOLE BLOOD 323(A) 70 - 100 mg/dL [facility] 05/31/2024 Eva Power MD LABORATORY Final Result [facility], [place] [address] [place] [address], from Last 3 Months Insurance [facility] Care Teams Conduit Bender Relationship Specialty Start Date End Date Braydon Pavon PA [address] [place] [address] PCP - General PHYSICIAN MACHINE DYER 03/02/19
== END 2024-07-27 13:47 | disposition home or self-care (01) ==
LOC: CHSIMG 13:49
PROVIDERS: PCP Physician Assistant; Visit Provider Physician Assistant
DX: Z18.11 Retained magnetic metal fragments (principal)
CPT/HCPCS: 70260

== ENCOUNTER 2024-07-30 07:36 | Outpatient (CLI) | payer OTHER, SELFPAY ==
--- OUTSIDE RECORDS SUMMARY | 2024-07-30 07:40 | XMS_ITS | Data Portability ---
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 Plan of Treatment Reminders Order Date Submit Date Provider Last Modified By Organization Details Last Modified Time Details Appointments None recorded. Lab urinalysis , dipstick 2023 024 [place] In-Office Order, Internal Use Only DO Not Attach Compendium DO Not Attach Compendium, Do Not Delete/merge, [id number] 10:17:29 Referral neurologis t [facility], [address], [address], 5 11:39:23 Procedures None recorded. Surgeries None recorded. Imaging MRI, brain, w/o contrast 2024 025 [facility], [address] [place], [address], 5 13:13:10 MRI, lumbar spine, w/o contrast 2023 024 [facility], [address] [place], [address], 4 07:55:02 Medication Orders None recorded. Patient TargetsNo targets recorded. Patient Instructions Encounter Date Encounter Id Patient Instructions Last Modified By Organization Details Last Modified Time 03/03/2024 [id number] A healthy lifestyle: care instructions jnanney Not available 03/03/2024 11:27:32 03/08/2024 [id number] A healthy lifestyle: care instructions jnanney Not available 03/08/2024 15:26:42 type 2 diabetes: care instructions jnanney Not available 03/08/2024 15:26:42 03/23/2024 [id number] A healthy lifestyle: care instructions jnanney Not available 03/23/2024 11:17:48 type 2 diabetes: care instructions jnanney Not available 03/23/2024 11:17:48 04/06/2024 [id number] painful urinatio n (dysuria): care instructions jnanney Not available 04/06/2024 10:11:20 When You Want to Lose Weight: Care Instructions jnanney Not available 04/06/2024 10:27:46 type 2 diabetes: care instructions jnanney Not available 04/06/2024 10:27:46 06/28/2024 [id number] coughing up blood: care instructions jnanney Not [...] DO Not Attach Compendium, Do Not Delete/merge, [id number] 04/06/2024 10:08:18 04/06/20 24 04/06/2024 urina lysis , dipst ick Nitrite negati ve Not Available In-Office Order Internal Use Only DO Not Attach Compendium DO Not Attach Compendium, Do Not Delete/merge, [id number] 04/06/2024 10:08:18 04/06/20 24 04/06/2024 urina lysis , dipst ick Urobilinogen .2 Not Available In-Of fice Order Internal Use Only DO Not Attach Compendium DO Not Attach Compendium, Do Not Delete/merge, [id number] 04/06/2024 10:08:18 04/06/20 24 04/06/2024 urina lysis , dipst ick Protein Negati ve Not Available In-Office Order Internal Use Only DO Not Attach Compendium DO Not Attach Compendium, Do Not Delete/merge, [id number] 04/06/2024 10:08:18 04/06/20 24 04/06/2024 urina lysis , dipst ick pH 6.0 Not Available In-Office Order Internal Use Only DO Not Attach Compendium DO Not Attach Compendium, Do Not Delete/merge, [id number] 04/06/2024 10:08:18 04/06/20 24 04/06/2024 urina lysis , dipst ick Blood Negati ve Not Available In-Office Order Internal Use Only DO Not Attach Compendium DO Not Attach Compendium, Do Not Delete/merge, [id number] 04/06/2024 10:08:18 04/06/20 24 04/06/2024 urina lysis , dipst ick Specific Alexander 1.015 Not Available In-Off ice Order Internal Use Only DO Not Attach Compendium DO Not Attach Compendium, Do Not Delete/merge, [id number] 04/06/2024 10:08:18 04/06/20 24 04/06/2024 urina lysis , dipst ick Ketone Trace Not Available In-Office Order Internal Use Only DO Not Attach Compendium DO Not Attach Compendium, Do Not Delete/merge, [id number] 04/06/2024 10:08:18 04/06/20 24 04/06/2024 urina lysis , dipst ick Bilirubin Negati ve Not Available In-Office Order Internal Use Only DO Not Attach Compendium DO Not Attach Compendium, Do Not Delete/merge, [id number] 04/06/2024 10:08:18 04/06/20 24 04/06/2024 urina lysis , dipst ick Glucose 1000 Not Available In-Office Order Internal Use Only DO Not Attach Compendium DO Not Attach Compendium, Do Not Delete/merge, [id number] 04/06/2024 10:08:18 04/06/20 24 04/06/2024 urina lysis , dipst ick Appearance Clear Not Available In-Offi ce Order Internal Use Only DO Not Attach Compendium DO Not Attach Compendium, Do Not Delete/merge, [id number] 04/06/2024 10:08:18 04/06/20 24 04/06/2024 urina lysis , dipst ick Color Yellow Not Available In-Office Order Internal Use Only DO Not Attach Compendium DO Not Attach Compendium, Do Not Delete/merge, [id number] 04/06/2024 10:08:18 06/08/19 25 06/09/2024 Gluco se [Mass /volu me] in Arter ial blood glucose [mass/volume ] in capillary blood by glucometer 241 mg/dL low: 70mg/d Lhigh: 99mg/d L high Gluco se WB/PO C 241 (H) 70 - 99 mg/dL 06/09 8:24 AM [facility] Not Available Not Available 06/28/2024 17:40:48 06/08/1906/09/2024 Gluco se [Mass /volu me] in Arter ial blood specimen source identified Cap Finger stick Speci men Type Cap Finge rstic k 06/09 8:24 AM [facility] Not Available Not Available [...] 1.6 - 2.6 mg/dL 06/08 5:17 PM [facility] Not Available Not Available [...] 70 - 99 mg/dL 06/08 5:17 PM [facility] Not Available Not Available 06/28/2024 17:40:48 06/08/1906/08/2024 Compr ehens chetna metab olic 1999 panel - Serum or Plasm a sodium [moles/volum e] in serum or plasma 135 mmol/ L low: 136mmo l/Lhig h: 145mmo l/L low Sodiu m 135 (L) 136 - 145 mmol/ L 06/08 5:17 PM [facility] Not Available Not Available 06/28/2024 17:40:48 06/08/1906/08/2024 Compr ehens chetna metab olic 1999 panel - Serum or Plasm a potassium [moles/volum e] in serum or plasma 3.9 mmol/ L low: 3.5mmo l/Lhig h: 5.1mmo l/L Potas sium 3.9 3.5 - 5.1 mmol/ L 06/08 5:17 PM [facility] Not Available Not Available 06/28/2024 17:40:48 06/08/19 25 06/08/2024 Compr ehens chetna metab olic 1999 panel - Serum or Plasm a chloride [moles/volum e] in serum or plasma 104 mmol/ L low: 98mmol /Lhigh : 107mmo l/L Chlor james 104 98 - 107 mmol/ L 06/08 5:17 PM [facility] Not Available Not Available 06/28/2024 17:40:48 06/08/19 25 06/08/2024 Compr ehens chetna metab olic 1999 panel - Serum or Plasm a carbon dioxide, total [moles/volum e] in serum or plasma 24 mmol/ L low: 22mmol /Lhigh : 29mmol /L CO2 24 22 - 29 mmol/ L 06/08 5:17 PM [facility] Not Available Not Available 06/28/2024 17:40:48 06/08/19 25 06/08/2024 Compr ehens chetna metab olic 1999 panel - Serum or Plasm a calcium [mass/volume ] in serum or plasma 8.1 mg/dL low: 8.4mg/ dLhigh : 10.4mg /dL low Calci um 8.1 (L) 8.4 - 10.4 mg/dL 06/08 5:17 PM [facility] Not Available Not Available 06/28/2024 17:40:48 06/08/19 25 06/08/2024 Compr ehens chetna metab olic 1999 panel - Serum or Plasm a anion gap in blood 7 mmol/ L low: 6mmol/ Lhigh: 16mmol /L Anion Gap 7 6 - 16 mmol/ L 06/08 5:17 PM [facility] Not Available Not Available 06/28/2024 17:40:48 06/08/19 25 06/08/2024 Compr ens chetna metab olic 1999 panel - Serum or Plasm a urea nitrogen [mass/volume ] in serum or plasma 16 mg/dL low: 7mg/dL high: 26mg/d L BUN 16 7 - 26 mg/dL 06/08 5:17 PM [facility] Not Available Not Available 06/28/2024 17:40:48 06/08/19 25 06/08/2024 Compr AlaMarkaens chetna metab olic 1999 panel - Serum or Plasm a creatinine [mass/volume ] in serum or plasma 0.88 mg/dL low: 0.72mg /dLhig h: 1.25mg /dL Creat inine 0.88 0.72 - 1.25 mg/dL 06/08 5:17 PM [facility] Not Available Not Available 06/28/2024 17:40:48 06/08/19 25 06/08/2024 Compr ehens chetna metab olic 2000 panel - Serum or Plasm a alkaline phosphatase [enzymatic activity/vol ume] in serum or plasma 71 U/L low: 40U/Lh igh: 150U/L Alkal ine Phosp hatas e 71 40 - 150 U/L 06/08 5:17 PM [facility] Not Available Not Available 06/28/2024 17:40:48 06/08/1906/08/2024 Compr ehens chetna metab olic 2000 panel - Serum or Plasm a alanine aminotransfe rase [enzymatic activity/vol ume] in serum or plasma 13 U/L low: 0U/Lhi gh: 55U/L ALT 13 0 - 55 U/L 06/08 5:17 PM [facility] Not Available Not Available 06/28/2024 17:40:48 06/08/19 25 06/08/2024 Compr ehens chetna metab olic 2000 panel - Serum or Plasm a aspartate aminotransfe rase [enzymatic activity/vol ume] in serum or plasma 20 U/L low: 5U/Lhi gh: 34U/L AST 20 5 - 34 U/L 06/08 5:17 PM [facility] Not Available Not Available 06/28/2024 17:40:48 06/08/19 25 06/08/2024 Compr AlaMarkaens chetna metab olic 1999 panel - Serum or Plasm a protein [mass/volume ] in serum or plasma 5.7 text: 6.4 - 8.3 gm/dL low Prote in Total 5.7 (L) 6.4 - 8.3 gm/dL 06/08 5:17 PM [facility] Not Available Not Available 06/28/2024 17:40:48 06/08/19 25 06/08/2024 Compr AlaMarkaens chetna metab olic 2000 panel - Serum or Plasm a albumin [mass/volume ] in serum or plasma 2.9 text: 3.4 - 5.0 gm/dL low Album in 2.9 (L) 3.4 - 5.0 gm/dL 06/08 5:17 PM [facility] Not Available Not Available 06/28/2024 17:40:48 06/08/19 25 06/08/2024 Compr AlaMarkaens chetna metab olic 2000 panel - Serum or Plasm a bilirubin.to kathi [mass/volume ] in serum or plasma 3 mg/dL low: 0.2mg/ dLhigh : 1.2mg/ dL high Bilir ubin Total 3.0 (H) 0.2 - 1.2 mg/dL 06/08 5:17 PM [facility] Not Available Not Available 06/28/2024 17:40:48 06/08/1906/08/2024 Compr ehens chetna metab olic 2000 panel - Serum or Plasm a glomerular filtration rate/1.73 sq M.predicted [volume rate/area] in serum, plasma or blood by creatinine-b ased formula (CKD-epi 2020) text: >=90 mL/min /1.73 m2 eGFR by CKD-E PI >90 >=90 mL/mi n/1.7 3 m2 06/08 5:17 PM [facility] Not Available Not Available 06/28/2024 [...] - 10.7 x10E9 /L 06/08 5:12 PM [facility] Not Available Not Available 06/28/2024 17:40:43 06/08/1906/08/2024 CBC W Auto Diffe renti al panel - Blood erythrocytes [#/volume] in blood by automated count 5.01 text: 4.30 - 5.80 x10e12 /L RBC Count 5.01 4.30 - 5.80 x10E1 2/L 06/08 5:12 PM [facility] Not Available Not Available 06/28/2024 17:40:43 06/08/1906/08/2024 CBC W Auto Diffe renti al panel - Blood hemoglobin [mass/volume ] in blood 14.8 g/dL low: 13.3g/ dLhigh : 17.5g/ dL Hemog lobin 14.8 13.3 - 17.5 g/dL 06/08 5:12 PM [facility] Not Available Not Available 06/28/2024 17:40:43 06/08/1906/08/2024 CBC W Auto Diffe renti al panel - Blood hematocrit [volume fraction] of blood by automated count 42.1 % low: 38.7%h igh: 51.1% Hemat ocrit 42.1 38.7 - 51.1 % 06/08 5:12 PM [facility] Not Available Not Available 06/28/2024 17:40:43 06/08/1906/08/2024 CBC W Auto Diffe easton al panel - Blood MCV [entitic volume] by automated count 84 fL low: 80fLhi gh: 98fL MCV 84.0 80.0 - 98.0 fL 06/08 5:12 PM [facility] Not Available Not Available 06/28/2024 17:40:43 06/08/1906/08/2024 CBC W Auto Diffe easton al panel - Blood MCH [entitic mass] by automated count 29.5 pg low: 26.7pg high: 33.6pg MCH 29.5 26.7 - 33.6 pg 06/08 5:12 PM [facility] Not Available Not Available 06/28/2024 17:40:43 06/08/1906/08/2024 CBC W Auto Diffe easton villegas panel - Blood MCHC [mass/volume ] by automated count 35.2 g/dL low: 31.7g/ dLhigh : 36.3g/ dL MCHC 35.2 31.7 - 36.3 g/dL 06/08 5:12 PM [facility] Not Available Not Available 06/28/2024 17:40:43 06/08/1906/08/2024 CBC W Auto Diffe easton al panel - Blood erythrocyte distribution width [ratio] by automated count 15.9 % low: 11.3%h igh: 14.8% high RDW-C V 15.9 (H) 11.3 - 14.8 % 06/08 5:12 PM [facility] Not Available Not Available 06/28/2024 17:40:43 06/08/1906/08/2024 CBC W Auto Diffe renti al panel - Blood platelets [#/volume] in blood by automated count 67 text: 150 - 420 x10e9/ L low Plate let Count 67 (L) 150 - 420 x10E9 /L 06/08 5:12 PM [facility] Not Available Not Available 06/28/2024 17:40:43 06/08/1906/08/2024 CBC W Auto Diffe renti al panel - Blood platelet mean volume [entitic volume] in blood by automated count 10.4 fL low: 7.8fLh igh: 11.4fL MPV 10.4 7.8 - 11.4 fL 06/08 5:12 PM [facility] Not Available Not Available 06/28/2024 17:40:43 06/08/1906/08/2024 CBC W Auto Diffe renti al panel - Blood neutrophils/ 100 leukocytes in blood by automated count 67.5 % low: 41%hig h: 74% Neutr ophil % 67.5 41.0 - 74.0 % 06/08 5:12 PM [facility] Not Available Not Available 06/28/2024 17:40:43 06/08/1906/08/2024 CBC W Auto Diffe renti al panel - Blood lymphocytes/ 100 leukocytes in blood by automated count 15.4 % low: 17%hig h: 47% low Lymph ocyte % 15.4 (L) 17.0 - 47.0 % 06/08 5:12 PM [facility] Not Available Not Available 06/28/2024 17:40:43 06/08/1906/08/2024 CBC W Auto Diffe renti al panel - Blood monocytes/10 0 leukocytes in blood by automated count 15.9 % low: 3%high : 11% high Monoc yte % 15.9 (H) 3.0 - 11.0 % 06/08 5:12 PM [facility] Not Available Not Available 06/28/2024 17:40:43 06/08/19 25 06/08/2024 CBC W Auto Diffe renti al panel - Blood eosinophils/ 100 leukocytes in blood by automated count 0 % low: 0%high : 7% Eosin ophil % 0.0 0.0 - 7.0 % 06/08 5:12 PM [facility] Not Available Not Available 06/28/2024 17:40:43 06/08/1906/08/2024 CBC W Auto Diffe renti al panel - Blood basophils/10 0 leukocytes in blood by automated count 0.7 % low: 0%high : 1.6% Basop hil % 0.7 0.0 - 1.6 % 06/08 5:12 PM [facility] Not Available Not Available 06/28/2024 17:40:43 06/08/1906/08/2024 CBC W Auto Diffe renti al panel - Blood immature granulocytes /100 leukocytes in blood by automated count 0.5 % low: 0%high : 1% Immat ure Granu locyt es % 0.5 0.0 - 1.0 % 06/08 5:12 PM [facility] Not Available Not Available 06/28/2024 17:40:43 06/08/1906/08/2024 CBC W Auto Diffe renti al panel - Blood neutrophils [#/volume] in blood by automated count 2.8 text: 1.60 - 7.50 x10e9/ L Neutr ophil Absol [place] 2.80 1.60 - 7.50 x10E9 /L 06/08 5:12 PM [facility] Not Available Not Available 06/28/2024 17:40:43 06/08/1906/08/2024 CBC W Auto Diffe renti al panel - Blood lymphocytes [#/volume] in blood by automated count 0.64 text: 1.00 - 4.40 x10e9/ L low Lymph ocyte [place]ol [place] 0.64 (L) 1.00 - 4.40 x10E9 /L 06/08 5:12 PM [facility] Not Available Not Available 06/28/2024 17:40:43 06/08/19 25 06/08/2024 CBC W Auto Diffe renti al panel - Blood monocytes [#/volume] in blood by automated count 0.66 text: 0.15 - 1.00 x10e9/ L Monoc yte [facility]ol [place] 0.66 0.15 - 1.00 x10E9 /L 06/08 5:12 PM [facility] Not Available Not Available 06/28/2024 17:40:43 06/08/19 25 06/08/2024 CBC W Auto Diffe renti al panel - Blood eosinophils [#/volume] in blood 0 text: 0.00 - 0.60 x10e9/ L Eosin ophil [place]ol [place] 0.00 0.00 - 0.60 x10E9 /L 06/08 5:12 PM [facility] Not Available Not Available 06/28/2024 17:40:43 06/08/1906/08/2024 CBC W Auto Diffe renti al panel - Blood basophils [#/volume] in blood by automated count 0.03 text: 0.00 - 0.13 x10e9/ L Basop hil [place]ol [place] 0.03 0.00 - 0.13 x10E9 /L 06/08 5:12 PM [facility] Not Available Not Available [...] 345 (H) <=100 pg/mL 06/08 5:19 PM [facility] Not Available Not Available [...] 70 - 99 mg/dL 06/09 8:23 AM [facility] Not Available Not Available 06/28/2024 17:40:48 06/08/19 25 06/09/2024 Gluco se [Mass /volu me] in Arter ial blood specimen source identified Cap Finger stick Speci men Type Vincent [place] rstic k 06/09 8:23 AM [facility] Not Available Not Available 06/28/2024 [...] 70 - 99 mg/dL 06/09 9:47 PM [facility] Not Available Not Available 06/28/2024 17:40:48 06/09/19 25 06/09/2024 Gluco se [Mass /volu me] in Arter ial blood specimen source identified Cap Finger stick Speci men Type Vincent [place] rstic k 06/09 9:47 PM [facility] Not Available Not Available 06/28/2024 [...] 70 - 99 mg/dL 06/09 5:57 PM [facility] Not Available Not Available 06/28/2024 17:40:48 06/09/19 25 06/09/2024 Gluco se [Mass /volu me] in Arter ial blood specimen source identified Cap Finger stick Speci men Type Cap Lanie rstic k 06/09 5:57 PM [facility] Not Available Not Available [...] 70 - 99 mg/dL 06/09 1:54 PM [facility] Not Available Not Available 06/28/2024 17:40:48 06/09/19 25 06/09/2024 Gluco se [Mass /volu me] in Arter ial blood specimen source identified Cap Finger stick Speci men Type Cap Zandra rstic k 06/09 1:54 PM [facility] Not Available Not Available [...] 70 - 99 mg/dL 06/09 8:24 AM [facility] Not Available Not Available 06/28/2024 17:40:48 06/09/19 25 06/09/2024 Gluco se [Mass /volu me] in Arter ial blood specimen source identified Cap Finger stick Speci men Type Cap Zandra rstic k 06/09 8:24 AM [facility] Not Available Not Available [...] 70 - 99 mg/dL 06/09 8:24 AM [facility] Not Available Not Available 06/28/2024 17:40:48 06/09/19 25 06/09/2024 Gluco se [Mass /volu me] in Arter ial blood specimen source identified Cap Finger stick Speci men Type Cap Lanie rstic k 06/09 8:24 AM [facility] Not Available Not Available [...] - 10.7 x10E9 /L 06/09 2:37 AM [facility] Not Available Not Available 06/28/2024 17:40:48 06/09/19 25 06/09/2024 CBC panel - Blood by Autom ated count erythrocytes [#/volume] in blood by automated count 4.95 text: 4.30 - 5.80 x10e12 /L RBC Count 4.95 4.30 - 5.80 x10E1 2/L 06/09 2:37 AM [employer] [facility] Not Available Not Available 06/28/2024 17:40:48 06/09/1906/09/2024 CBC panel - Blood by Autom ated count hemoglobin [mass/volume ] in blood 14.8 g/dL low: 13.3g/ dLhigh : 17.5g/ dL Hemog lobin 14.8 13.3 - 17.5 g/dL 06/09 2:37 AM [facility] Not Available Not Available 06/28/2024 17:40:48 06/09/1906/09/2024 CBC panel - Blood by Autom ated count hematocrit [volume fraction] of blood by automated count 42 % low: 38.7%h igh: 51.1% Hemat ocrit 42.0 38.7 - 51.1 % 06/09 2:37 AM [facility] [facility] Not Available Not Available 06/28/2024 17:40:48 06/09/1906/09/2024 CBC panel - Blood by Autom ated count MCV [entitic volume] by automated count 84.8 fL low: 80fLhi gh: 98fL MCV 84.8 80.0 - 98.0 fL 06/09 2:37 AM [facility] Not Available Not Available 06/28/2024 17:40:48 06/09/1906/09/2024 CBC panel - Blood by Autom ated count MCH [entitic mass] by automated count 29.9 pg low: 26.7pg high: 33.6pg MCH 29.9 26.7 - 33.6 pg 06/09 2:37 AM [facility] Not Available Not Available 06/28/2024 17:40:48 06/09/1906/09/2024 CBC panel - Blood by Autom ated count MCHC [mass/volume ] by automated count 35.2 g/dL low: 31.7g/ dLhigh : 36.3g/ dL MCHC 35.2 31.7 - 36.3 g/dL 06/09 2:37 AM [facility] Not Available Not Available 06/28/2024 17:40:48 06/09/1906/09/2024 CBC panel - Blood by Autom ated count erythrocyte distribution width [ratio] by automated count 15.7 % low: 11.3%h igh: 14.8% high RDW-C V 15.7 (H) 11.3 - 14.8 % 06/09 2:37 AM [facility] Not Available Not Available 06/28/2024 17:40:48 06/09/1906/09/2024 CBC panel - Blood by Autom ated count platelets [#/volume] in blood by automated count 67 text: 150 - 420 x10e9/ L low Plate let Count 67 (L) 150 - 420 x10E9 /L 06/09 2:37 AM [facility] Not Available Not Available 06/28/2024 17:40:48 06/09/1906/09/2024 CBC panel - Blood by Autom ated count platelet mean volume [entitic volume] in blood by automated count 11.8 fL low: 7.8fLh igh: 11.4fL high MPV 11.8 (H) 7.8 - 11.4 fL 06/09 2:37 AM [facility] [facility] Not Available Not Available 06/28/2024 17:40:48 [...] - 4.940 uIU/m L 06/09 2:56 AM [facility] Not Available Not Available 06/28/2024 17:40:43 06/09/1906/09/2024 Thyro tropi n [Unit s/vol ume] in Serum or Plasm a interpretati on and review of laboratory results Normal Not Available Not Available 06/05 17:40:43 06/09/1906/09/2024 Hemog lobin A1c/H emogl obin. total in Blood hemoglobin A1C/hemoglob in.total in blood 9.1 % high: 5.7% high Hemog lobin A1c 9.1 (H) <5.7 % 06/09 2:28 AM [facility] Not Available Not Available 06/28/2024 17:40:43 06/09/19 25 06/09/2024 Hemog lobin A1c/H emogl obin. total in Blood glucose mean value [mass/volume ] in blood estimated from glycated hemoglobin 214 mg/dL Estim ated [place] Gluco se 214 mg/dL 06/09 2:28 AM [facility] Not Available Not Available [...] Not Available 17:40:43 06/09/19 25 06/09/2024 Compr [facility] chetna metab olic 1999 panel - Serum or Plasm a glucose [mass/volume ] in serum or plasma 220 mg/dL low: 70mg/d Lhigh: 99mg/d L high Gluco se 220 (H) 70 - 99 mg/dL 06/09 3:01 AM [facility] Not Available Not Available 06/28/2024 17:40:42 06/09/19 25 06/09/2024 Compr AlaMarkaens chetna metab olic 2000 panel - Serum or Plasm a sodium [moles/volum e] in serum or plasma 134 mmol/ L low: 136mmo l/Lhig h: 145mmo l/L low Sodiu m 134 (L) 136 - 145 mmol/ L 06/09 3:01 AM [facility] Not Available Not Available 06/28/2024 17:40:42 06/09/19 25 06/09/2024 Compr [employer] chetna metab olic 2000 panel - Serum or Plasm a potassium [moles/volum e] in serum or plasma 4.2 mmol/ L low: 3.5mmo l/Lhig h: 5.1mmo l/L Potas sium 4.2 3.5 - 5.1 mmol/ L 06/09 3:01 AM [facility] Not Available Not Available 06/28/2024 17:40:42 06/09/19 25 06/09/2024 Compr Ala[facility] chetna metab olic 2000 panel - Serum or Plasm a chloride [moles/volum e] in serum or plasma 104 mmol/ L low: 98mmol /Lhigh : 107mmo l/L Chlor james 104 98 - 107 mmol/ L 06/09 3:01 AM [facility] Not Available Not [...] L 06/09 3:01 AM [facility] Not Available Not Available 06/28/2024 17:40:42 [...] 40 - 150 U/L 06/09 3:01 AM [facility] Not Available Not [...] U/L 06/09 3:01 AM [facility] Not Available Not Available 06/28/2024 17:40:42 [...] 3.4 - 5.0 gm/dL 06/09 3:01 AM [facility] Not Available Not Available 06/28/2024 17:40:42 06/09/1906/09/2024 Compr ehens chetna metab olic 1999 panel - Serum or Plasm a bilirubin.to kathi [mass/volume ] in serum or plasma 3.2 mg/dL low: 0.2mg/ dLhigh : 1.2mg/ dL high Bilir ubin Total 3.2 (H) 0.2 - 1.2 mg/dL 06/09 3:01 AM [facility] Not Available Not Available 06/28/2024 17:40:42 06/09/1906/09/2024 Compr ehens chetna metab olic 2000 panel - Serum or Plasm a glomerular filtration rate/1.73 sq M.predicted [volume rate/area] in serum, plasma or blood by creatinine-b ased formula (CKD-epi 2020) text: >=90 mL/min /1.73 m2 eGFR by CKD-E PI >90 >=90 mL/mi n/1.7 3 m2 06/09 3:01 AM [facility] Not Available Not Available 06/28/2024 [...] 2.5 - 4.5 mg/dL 06/09 2:40 AM [facility] Not Available Not Available 06/28/2024 [...] 1.6 - 2.6 mg/dL 06/09 2:40 AM [facility] Not Available Not Available 06/28/2024 17:40:42 06/09/1906/09/2024 Magne sium [Mass /volu me] in Serum or Plasm a interpretati on and review of laboratory results Normal Not Available Not Available 06/05 17:40:42 06/09/1906/09/2024 Lipid 1995 panel - Serum or Plasm a cholesterol [mass/volume ] in serum or plasma 69 mg/dL high: 200mg/ dL Loretta stero l 69 <200 mg/dL 06/09 2:40 AM [facility] Not Available Not Available 06/28/2024 17:40:42 06/09/1906/09/2024 Lipid 1995 panel - Serum or Plasm a triglyceride [mass/volume ] in serum or plasma 99 mg/dL high: 150mg/ dL Trigl yceri patricia 99 <150 mg/dL 06/09 2:40 AM [employer] [facility] Not Available Not Available 06/28/2024 17:40:42 06/09/19 25 06/09/2024 Lipid 1995 panel - Serum or Plasm a cholesterol in HDL [mass/volume ] in serum or plasma 19 mg/dL low: 40mg/d L low HDL Loretta stero l 19 (L) >40 mg/dL 06/09 2:40 AM [facility] Not Available Not Available 06/28/2024 17:40:42 06/09/19 25 06/09/2024 Lipid 1995 panel - Serum or Plasm a cholesterol in LDL [mass/volume ] in serum or plasma by calculation 30 mg/dL high: 130mg/ dL LDL Calcu lated 30 <130 mg/dL 06/09 2:40 AM [facility] Not Available Not Available 06/28/2024 17:40:42 06/09/19 25 06/09/2024 Lipid 1996 panel - Serum or Plasm a cholesterol in VLDL [mass/volume ] in serum or plasma by calculation 20 mg/dL high: 30mg/d L VLDL Calcu lated 20 <=30 mg/dL 06/09 2:40 AM [facility] [facility] Not Available Not Available 06/28/2024 17:40:42 06/09/19 25 06/09/2024 Lipid 1996 panel - Serum or Plasm a cholesterol. total/choles terol in HDL [mass ratio] in serum or plasma 3.6 high: 4.5 Chol HDL Ratio 3.6 <4.5 06/09 2:40 AM [facility] [employer] [facility] Not Available Not Available 06/28/2024 17:40:42 06/09/19 25 06/09/2024 Lipid 1996 panel - Serum or Plasm a cholesterol in LDL/choleste rol in HDL [mass ratio] in serum or plasma 1.6 high: 5 LDL/H DL Ratio 1.6 <5.0 06/09 2:40 AM [facility] [facility] Not Available Not Available 06/28/2024 17:40:42 [...] 70 - 99 mg/dL 06/10 12:53 PM [facility] [facility] Not Available Not Available 06/28/2024 17:40:43 06/10/1906/10/2024 Gluco se [Mass /volu me] in Arter ial blood specimen source identified Cap Finger stick Speci men Type Cap Finge rstic k 06/10 12:53 PM [facility] Not Available Not Available 06/28/2024 17:40:43 [...] 70 - 99 mg/dL 06/10 1:24 PM [facility] Not Available Not Available 06/28/2024 17:40:48 06/10/19 25 06/10/2024 Gluco se [Mass /volu me] in Arter ial blood specimen source identified Cap Finger stick Speci men Type Vincent De Paz rstic k 06/10 1:24 PM [facility] Not Available Not Available [...] 70 - 99 mg/dL 06/10 7:16 AM [facility] Not Available Not Available 06/28/2024 17:40:48 06/10/19 25 06/10/2024 Gluco se [Mass /volu me] in Arter ial blood specimen source identified Cap Finger stick Speci men Type Cap Lanie rstic k 06/10 7:16 AM [facility] Not Available Not Available 06/28/2024 17:40:48 06/10/19 25 06/10/2024 Gluco se [Mass /volu me] in Arter ial blood glucose [mass/volume ] in capillary blood by glucometer 74 mg/dL low: 70mg/d Lhigh: 99mg/d L Gluco se WB/PO C 74 70 - 99 mg/dL 06/10 6:43 AM [facility] Not Available Not Available 06/28/2024 17:40:48 06/10/1906/10/2024 Gluco se [Mass /volu me] in Arter ial blood specimen source identified Cap Finger stick Speci men Type Cap Finge rstic k 06/10 6:43 AM [facility] Not Available Not Available 06/28/2024 17:40:48 06/10/1906/10/2024 CBC panel - Blood by Autom ated count leukocytes [#/volume] in blood by automated count 2.3 text: 4.0 - 10.7 x10e9/ L low WBC 2.3 (L) 4.0 - 10.7 x10E9 /L 06/10 5:36 AM [facility] Not Available Not Available 06/28/2024 17:40:43 06/10/1906/10/2024 CBC panel - Blood by Autom ated count erythrocytes [#/volume] in blood by automated count 4.44 text: 4.30 - 5.80 x10e12 /L RBC Count 4.44 4.30 - 5.80 x10E1 2/L 06/10 5:36 AM [facility] Not Available Not Available 06/28/2024 17:40:43 06/10/1906/10/2024 CBC panel - Blood by Autom ated count hemoglobin [mass/volume ] in blood 13.2 g/dL low: 13.3g/ dLhigh : 17.5g/ dL low Hemog lobin 13.2 (L) 13.3 - 17.5 g/dL 06/10 5:36 AM [facility] Not Available Not Available 06/28/2024 17:40:43 06/10/1906/10/2024 CBC panel - Blood by Autom ated count hematocrit [volume fraction] of blood by automated count 37.8 % low: 38.7%h igh: 51.1% low Hemat ocrit 37.8 (L) 38.7 - 51.1 % 06/10 5:36 AM [facility] Not Available Not Available 06/28/2024 17:40:43 06/10/1906/10/2024 CBC panel - Blood by Autom ated count MCV [entitic volume] by automated count 85.1 fL low: 80fLhi gh: 98fL MCV 85.1 80.0 - 98.0 fL 06/10 5:36 AM [facility] Not Available Not Available 06/28/2024 17:40:43 06/10/1906/10/2024 CBC panel - Blood by Autom ated count MCH [entitic mass] by automated count 29.7 pg low: 26.7pg high: 33.6pg MCH 29.7 26.7 - 33.6 pg 06/10 5:36 AM [facility] Not Available Not Available 06/28/2024 17:40:43 06/10/1906/10/2024 CBC panel - Blood by Autom ated count MCHC [mass/volume ] by automated count 34.9 g/dL low: 31.7g/ dLhigh : 36.3g/ dL MCHC 34.9 31.7 - 36.3 g/dL 06/10 5:36 AM [facility] Not Available Not Available 06/28/2024 17:40:43 06/10/1906/10/2024 CBC panel - Blood by Autom ated count erythrocyte distribution width [ratio] by automated count 15.2 % low: 11.3%h igh: 14.8% high RDW-C V 15.2 (H) 11.3 - 14.8 % 06/10 5:36 AM [facility] Not Available Not Available 06/28/2024 17:40:43 06/10/1906/10/2024 CBC panel - Blood by Autom ated count platelets [#/volume] in blood by automated count 64 text: 150 - 420 x10e9/ L low Plate let Count 64 (L) 150 - 420 x10E9 /L 06/10 5:36 AM [facility] Not Available Not Available 06/28/2024 17:40:43 06/10/1906/10/2024 CBC panel - Blood by Autom ated count platelet mean volume [entitic volume] in blood by automated count 10.9 fL low: 7.8fLh igh: 11.4fL MPV 10.9 7.8 - 11.4 fL 06/10 5:36 AM [facility] [facility] [facility] Not Available Not Available 06/28/2024 17:40:43 [...] 70 - 99 mg/dL 06/10 5:25 AM [employer] [facility] Not Available Not Available 06/28/2024 17:40:42 06/10/19 25 06/10/2024 Basic metab olic 2000 panel - Serum or Plasm a sodium [moles/volum e] in serum or plasma 139 mmol/ L low: 136mmo l/Lhig h: 145mmo l/L Sodiu m 139 136 - 145 mmol/ L 06/10 5:25 AM [employer] [facility] Not Available Not Available 06/28/2024 17:40:42 06/10/19 25 06/10/2024 Basic metab olic 2000 panel - Serum or Plasm a potassium [moles/volum e] in serum or plasma 3.4 mmol/ L low: 3.5mmo l/Lhig h: 5.1mmo l/L low Potas sium 3.4 (L) 3.5 - 5.1 mmol/ L 06/10 5:25 AM [employer] [facility] Not Available Not Available 06/28/2024 17:40:42 06/10/19 25 06/10/2024 Basic metab olic 2000 panel - Serum or Plasm a chloride [moles/volum e] in serum or plasma 107 mmol/ L low: 98mmol /Lhigh : 107mmo l/L Chlor james 107 98 - 107 mmol/ L 06/10 5:25 AM [facility] Not Available Not Available 06/28/2024 17:40:42 06/10/1906/10/2024 Basic metab olic 2000 panel - Serum or Plasm a carbon dioxide, total [moles/volum e] in serum or plasma 22 mmol/ L low: 22mmol /Lhigh : 29mmol /L CO2 22 22 - 29 mmol/ L 06/10 5:25 AM [facility] Not Available Not Available 06/28/2024 17:40:42 06/10/1906/10/2024 Basic metab olic 2000 panel - Serum or Plasm a calcium [mass/volume ] in serum or plasma 8.2 mg/dL low: 8.4mg/ dLhigh : 10.4mg /dL low Calci um 8.2 (L) 8.4 - 10.4 mg/dL 06/10 5:25 AM [facility] Not Available Not Available 06/28/2024 17:40:42 06/10/1906/10/2024 Basic metab olic 2000 panel - Serum or Plasm a anion gap in blood 10 mmol/ L low: 6mmol/ Lhigh: 16mmol /L Anion Gap 10 6 - 16 mmol/ L 06/10 5:25 AM [facility] Not Available Not Available 06/28/2024 17:40:42 06/10/19 25 06/10/2024 Basic metab olic 2000 panel - Serum or Plasm a urea nitrogen [mass/volume ] in serum or plasma 15 mg/dL low: 7mg/dL high: 26mg/d L BUN 15 7 - 26 mg/dL 06/10 5:25 AM [facility] Not Available Not Available 06/28/2024 17:40:42 06/10/19 25 06/10/2024 Basic metab olic 2000 panel - Serum or Plasm a creatinine [mass/volume ] in serum or plasma 0.7 mg/dL low: 0.72mg /dLhig h: 1.25mg /dL low Creat inine 0.70 (L) 0.72 - 1.25 mg/dL 06/10 5:25 AM [facility] Not Available Not Available 06/28/2024 17:40:42 06/10/19 25 06/10/2024 Basic metab olic 2000 panel - Serum or Plasm a glomerular filtration rate/1.73 sq M.predicted [volume rate/area] in serum, plasma or blood by creatinine-b ased formula (CKD-epi 2020) text: >=90 mL/min /1.73 m2 eGFR by CKD-E PI >90 >=90 mL/mi n/1.7 3 m2 06/10 5:25 AM [facility] Not Available Not Available 06/28/2024 17:40:42 06/10/19 25 06/10/2024 Basic metab olic 2000 panel - Serum or Plasm a interpretati on and review of laboratory results Abnorm al Not Available Not Available 17:40:42 02/24/20 24 02/23/2024 XR, abdom en No observ ation record ed. [facility] [address] [place], [address], 02/24/2024 08:59:19 04/17/20 24 04/16/2024 MRI, lumba r spine , w/o contr ast No observ ation record ed. [facility] [address] [place], [address], 04/18/2024 12:31:37 06/08/19 25 06/08/2024 XR, chest No observ ation record ed. [facility] [address] [place], [address], 06/08/2024 08:55:38 07/28/19 25 07/27/2024 XR, skull No observ ation record ed. [facility] [address] [place], [address], 07/28/2024 09:56:58 Result Notes None recorded. Problems Name Problem SNOMED Code Status Onset Date Resolution Date Notes Provider Name and Address Organization Details Recorded Time Diabetes mellitus 66937942 Active 2018 [facility] [place], [place] [facility] 1 10:51:15 Liver finding 146196997 Active 2018 Amanda Amin [place] [facility] 1 10:51:15 Hyperglycem ia due to type 2 diabetes mellitus 3904000707347 09 Active [facility] [place] [facility] 4 09:09:59 Type 2 diabetes mellitus in obese 74924174 Active Amanda Amin [place] [facility] 1 10:51:15 Bacteremia 1055392 Active Amanda Amin [place] [facility] 10:51:15 Gastroesoph ageal reflux disease 636762209 Active [facility] [place] [facility] 10:51:15 Abscess 088247960 [place] [facility] [place] [facility] 10:51:15 Backache 795840758 Active [facility] [place] [facility] 10:51:15 Hepatic failure 87772685 Active Amanda Amin [place] [facility] 1 10:51:15 Problem Notes None recorded. Procedures Surgical History Date Name Laterality Status Provider Name and Address Organization Details Recorded Time 6 colonoscopy completed Amanda Amin [place] [facility] 11/15/2021 15:39:15 Imaging Results Imaging Date Name Status LastModified by Organiz ation Details LastModified Time 02/23/2024 XR, abdomen completed [facility] [address] [place], [address], 02/24/2024 08:59:19 04/16/2024 MRI, lumbar spine, w/o contrast completed [facility] [address] [place], [address], 04/18/2024 12:31:37 06/08/2024 XR, chest completed [facility] [address] [place], [address], 06/08/2024 08:55:38 07/27/2024 XR, skull completed [facility] [address] [place], [address], 07/28/2024 09:56:58 Procedure Notes None recorded. Medical Equipment None Reported. Allergies Allergen ID Allergen Name Allergen Category Reaction Reaction Severity Criticality Documentation Date Start Date Code Code System Note Provider Name and Address Organization Details Recorded Time 380651 Product containin g penicilli n (product) medicatio n Not available Not available Not available 12/16/2017 90998 8001 SNOMED Not Available Not Available Not Available 845569 Substance with sulfonami de structure and antibacte rial mechanism of action (substanc e) medicatio n Not available Not available Not available 12/16/2017 17026 8003 SNOMED Not Available Not Available Not Available 650761 Nexium medicatio n Not available Not available Not available 12/16/2017 93580 9 RxNorm Not Available Not Available Not Available 846519 erythromy roxana medicatio n Not available Not available Not available 12/16/2017 4053 RxNorm Not Available Not Available Not Available 760574 Iodinated contrast media (substanc e) medicatio n Not available Not available Not available 12/16/2017 07045 2004 SNOMED Not Available Not Available Not Available 978207 ciproflox acin medicatio n Not available Not available Not available 12/16/2017 2551 RxNorm Not Available Not Available Not Available 560494 Azactam medicatio n Not available Not available Not available 12/16/2017 18805 1 RxNorm Not Available Not Available Not Available 175977 aztreonam medicatio n Not available Not available Not available 12/16/2017 1272 RxNorm Not Available Not Available Not Available 368332 octreotid e Not available Not available Not available Not available 12/16/2017 7617 RxNorm Not Available Not Available Not Available 046238 duloxetin e medicatio n Not available Not available Not available 12/16/2017 76721 RxNorm Not Available Not Available Not Available 277582 oxycodone medicatio n other Not available Not [...] completed Not Available Not Available Not Available [employer] Ultra Test strips USE FOR TESTING BEFORE [...] completed Not Available Not Available Not Available [employer] G7 Sensor device CHANGE SENSOR EVERY 10 DAYS active Not Available Not Available No t Available Vitals Date Recorded Body height Body mass index (BMI) Body weight Oxygen saturation Oxygen saturation in Arterial blood by Pulse oximetry Heart rate Systolic blood pressure Diastolic blood pressure Provider Name and Address Organization Details Last Updated DateTime 4 171.45 cm 34.6 kg/m2 915117. 69 g 96 % 96 % 108 /min 121 mm[Hg] 81 mm[Hg] Karina Alvarez MA [facility] 4 11:08:58 Date Recorded Body height Body mass index (BMI) Body weight Oxygen saturation Oxygen saturation in Arterial blood by Pulse oximetry Heart rate Systolic blood pressure Diastolic blood pressure Provider Name and Address Organization Details Last Updated DateTime 4 171.45 cm 34.9 kg/m2 733171. 28 g 95 % 95 % 94 /min 139 mm[Hg] 80 mm[Hg] Karina Alvarez MA [facility] 4 14:55:26 Date Recorded Body height Body mass index (BMI) Body weight Oxygen saturation Oxygen saturation in Arterial blood by Pulse oximetry Heart rate Systolic blood pressure Diastolic blood pressure Provider Name and Address Organization Details Last Updated DateTime 4 171.45 cm 35 kg/m2 997708. 47 g 97 % 97 % 97 /min 128 mm[Hg] 81 mm[Hg] Karina Alvarez MA [facility] 4 10:54:27 Date Recorded Body height Body mass index (BMI) Body weight Oxygen saturation Oxygen saturation in Arterial blood by Pulse oximetry Heart rate Systolic blood pressure Diastolic blood pressure Provider Name and Address Organization Details Last Updated DateTime 4 171.45 cm 34.5 kg/m2 085887. 9 g 95 % 95 % 102 /min 149 mm[Hg] 91 mm[Hg] Karina Alvarez MA [facility] 4 10:09:39 Date Recorded Body height Body mass index (BMI) Body weight Oxygen saturation Oxygen saturation in Arterial blood by Pulse oximetry Heart rate Systolic blood pressure Diastolic blood pressure Provider Name and Address Organization Details Last Updated DateTime 5 171.45 cm 33.9 kg/m2 95778.3 2 g 95 % 95 % 88 /min 120 mm[Hg] 88 mm[Hg] Amanda Amin [place] [facility] 5 17:59:35 Social History Question Answer Notes LastModified by Organizat ion Details LastModified Time Tobacco Smoking Status Former Smoker Julia [facility] Guer[place] null, [place] [facility] 12/16/2017 12:02:47 What Is Your Level Of [...] Anxious, Or Unable To Sleep At Night)? [id number] [email or web address] Information not available 08/21/2021 Do You [...] Skin Problems N Anemia N Heart Attack (NC) N Diabetes Y Seizures/Epilepsy N Asthma N Allergies Y Hepatitis N Osteoporosis N Heart Failure N Immunizations Vaccine Type Date Status Note Provider Nam e and Address Organization Details Recorded Time COVID-19, mRNA, LNP-S, PF, 30 mcg/0.3 mL dose 12/08/2020 completed Not Available [facility] 4 10:49:05 COVID-19, mRNA, LNP-S, PF, 30 mcg/0.3 mL dose 12/29/2020 completed Not Available [facility] 4 10:49:05 Hep A-Hep B 09/10/2015 completed Amanda Amin MA [place], [place] - [facility] 07/20/2023 09:11:13 Past Encounters Encounter ID Performer Location Encounter Start Date Encounter Closed Date Diagnosis/Indication Diagnosis SNOMED-CT Code Diagnosis ICD10 Code Diagnosis Note [id number] Julia Guerrier MA [facility] [address] [place] [address] 12/16/2017 11:36:06 12/16/2017 12:52:59 Nonalcoholic steatohepatitis 696218288 K75.81 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 756778256 I85.10 Type 2 obdulio betes mellitus 55754406 E11.9 [id number] Janeth Pavon PA-C [facility] [address] [place] [address] 12/23/2017 11:30:06 12/23/2017 12:45:09 Diabetes mellitus 29046293 E11.69 Cholecystitis 82508513 K 80.01 End stage liver disease 979612672 K72.90 [id number] TOM Kunz [address] [place] [address] 02/11/2018 15:41:09 02/11/2018 16:48:42 Generalized anxiety disorder 18540492 F41.1 Uncontroll ed type 2 diabetes mellitus 753877969 E11.65 [id number] TOM Kunz [facility] [address] [place] [address] 03/02/2018 15:31:55 03/02/2018 16:08:34 End stage liver disease 242955984 K72.00 Uncontroll ed type 2 diabetes mellitus 788731681 E11.65 [id number] Janeth Pavon PA-C [facility] [address] [place] [address] 05/13/2018 15:37:41 05/13/2018 17:17:50 End stage liver disease 326574284 K72.00 [id number] Janeth Pavon PA-C [facility] [address] [place] [address] 05/25/2018 11:13:32 05/25/2018 11:43:34 End stage liver disease 569296372 K72.00 Dyspnea on exertion 6084 5006 R06.09 Tachycardia 8309748 R00. 0 On examina tion - deep seated pustules 868675971 L08.9 [id number] Janeth Pavon PA-C [facility] [address] [place] [address] 06/14/2018 10:19:40 06/14/2018 11:01:20 Diabetes mellitus 37872188 E11.69 End stage liver disease 794693008 K72.00 Lumbar radiculopathy 128 555140 M54.16 [id number] Janeth Pavon PA-C [facility] [address] [place] [address] 02/09/2019 14:30:46 02/09/2019 15:35:07 Diabetes mellitus 16354206 E11.69 Increased frequency of urination 252797241 R35.0 [id number] Janeth Pavon PA-C [facility] [address] [place] [address] 03/22/2019 15:44:00 03/22/2019 17:48:00 Anemia due to chronic blood loss 540936185 D50.0 Nonalcohol ic steatohepatitis 431607508 K75.81 Type 2 obdulio betes mellitus without complication 217028802 E11.9 Low back pain 890275916 M54.5 Increased frequency of urination 710569866 R35.0 Hepatic encephalopathy 09808913 K72.90 [id number] Janeth Pavon PA-C [facility] [address] [place] [address] 08/01/2019 11:23:53 08/01/2019 12:28:44 Cirrhosis of liver 17801025 K74.69 [id number] Janeth Pavon PA-C [facility] [address] [place] [address] 08/17/2019 09:24:17 08/24/2019 11:34:51 Diabetes mellitus 01610256 E11.69 Lumbar radiculopathy 128 028976 M54.16 [id number] Janeth Pavon PA-C [facility] [address] [place] [address] 08/31/2019 14:50:58 09/02/2019 14:48:06 Acute bronchitis with bronchospasm 03804686 J20.9 [id number] Janeth Pavon PA-C [facility] [address] [place] [address] 12/19/2019 09:34:48 12/19/2019 15:21:39 [id number] Janeth Pavon PA-C [facility] [address] [place] [address] 12/23/2019 09:37:23 12/23/2019 15:52:54 Diabetes mellitus 41897997 E11.69 Obstructiv e sleep apnea syndrome 21205723 G47.33 End stage liver disease 711026808 K72.00 Thoracic back pain 17080 8004 M54.6 [id number] Janeth Pavon PA-C [facility] [address] [place] [address] 01/25/2020 09:34:10 01/25/2020 15:21:39 Lumbar radiculopathy 945603150 M54.16 [id number] Janeth Pavon PA-C [facility] [address] [place] [address] 02/23/2020 09:42:16 02/23/2020 16:52:05 Diabetes mellitus 91071790 E11.69 Renal mass 690863774 N28 .89 Neoplasm of kidney 62721 0001 D49.240 [id number] Janeth Pavon PA-C [facility] [address] [place] [address] 06/13/2020 11:39:18 06/14/2020 10:53:35 Nonalcoholic steatohepatitis 509148151 K75.81 Uncontroll ed type 2 diabetes mellitus 913382207 E11.65 [id number] TOM Kunz [facility] [address] [place] [address] 07/25/2020 11:21:27 07/25/2020 14:13:47 Long-term drug therapy 648975931 Z79.899 Gastroesop hageal reflux disease without esophagitis 260485512 K21.9 Hematochezia 582969120 K 92.1 Nausea and vomiting 1693 2000 R11.2 Pityriasis rosea 1467262 4 L42 Type 2 obdulio betes mellitus 47046080 E11.9 [id number] Janeth Pavon PA-C [facility] [address] [place] [address] 07/27/2020 10:05:37 07/31/2020 10:18:42 Uncontrolled type 2 diabetes mellitus 427846754 E11.65 [id number] Janeth Pavon PA-C [facility] [address] [place] [address] 2020 11:20:02 09/08/2020 12:42:46 Tinea corporis 58830308 B35.4 Abscess 735437670 L02.91 [id number] Janeth Pavon PA-C [facility] [address] [place] [address] 11/16/2020 10:47:40 11/16/2020 11:46:55 Exanthem due to herpes zoster 192170979 B02.8 [id number] Janeth Pavon PA-C [facility] [address] [place] [address] 06/26/2021 15:54:46 06/26/2021 17:00:08 Long-term drug therapy 456398927 Z79.899 Low back pain 365073838 M54.51 Body mass index 30+ - obesity 385416997 Z68.39 Screening for malignant neoplasm of prostate 961608358 Z12.5 [id number] Janeth Pavon PA-C [facility] [address] [place] [address] 08/21/2021 11:08:46 08/21/2021 12:35:42 Adult health examination 749190524 Z00.00 Backache 365389315 M54.9 [id number] Janeth Pavon PA-C [facility] [address] [place] [address] 11/15/2021 15:33:53 11/18/2021 10:03:54 Hyperglycemia due to type 2 diabetes mellitus 1652165761 51037 E11.65 Type 2 obdulio betes mellitus 64845297 E11.9 Morbid obesity 652862572 E66.01 End stage liver disease 264034530 K72.00 [id number] Janeth Pavon PA-C [facility] [address] [place] [address] 05/28/2022 16:19:55 05/28/2022 17:17:07 Uncontrolled type 2 diabetes mellitus 933197523 E11.65 Chronic back pain 511751 002 M54.05 Overweight 033937461 E66 .3 Urinary incontinence 165 033593 R32 Generalize d anxiety disorder 94133876 F41.1 Backache 951087766 M54.9 [id number] Janeth Pavon PA-C [facility] [address] [place] [address] 10/27/2022 14:34:16 10/28/2022 10:40:36 Long-term drug therapy 209321455 Z79.899 Lumbar radiculopathy 128 683373 M54.16 Persistent cough 9688237 02 R05.3 Daytime somnolence 04384 33440 00 R40.0 Type 2 obdulio betes mellitus 89770103 E11.9 Iron defic iency anemia 46574357 D50.8 [id number] Janeth Pavon PA-C [facility] [address] [place] [address] 12/29/2022 15:17:34 12/30/2022 09:55:18 Lumbar radiculopathy 058857883 M54.16 Overweight 251619063 E66 .3 [id number] Janeth Pavon PA-C [facility] [address] [place] [address] 02/24/2023 18:01:59 03/02/2023 15:11:10 Persistent cough 340414623 R05.3 Essential hypertension 61334078 I10 Overweight 353926691 E66 .3 [id number] Janeth Pavon PA-C [facility] [address] [place] [address] 05/14/2023 11:38:36 05/15/2023 11:58:34 Type 2 diabetes mellitus 59378783 E11.9 Mixed anxi ety and depressive disorder 000646690 F41.8 Overweight 714647435 E66 .3 [id number] Janeth Pavon PA-C [facility] [address] [place] [address] 06/04/2023 10:52:25 06/09/2023 14:14:44 Abdominal pain 07321540 R10.13 Cirrhosis of liver 37634 007 K74.69 Overweight 277865937 E66 .3 [id number] Janeth Pavon PA-C [facility] [address] [place] [address] 07/02/2023 12:08:49 07/03/2023 11:31:17 Type 2 diabetes mellitus 10620984 E11.9 Atypical chest pain 1025 56659 R07.89 Overweight 483208262 E66 .3 [id number] Janeth Pavon PA-C [facility] [address] [place] [address] 08/05/2023 15:58:27 08/21/2023 14:53:44 Uncontrolled type 2 diabetes mellitus 797442513 E11.65 Overweight 843391516 E66 .3 [id number] Janeth Pavon PA-C [facility] [address] [place] [address] 08/13/2023 14:55:22 08/20/2023 15:19:06 Lumbar radiculopathy 213488868 M54.16 [id number] KATHY VARGAS [facility] [address] [place] [address] 09/17/2023 08:59:31 09/18/2023 13:42:26 Atopic dermatitis [id number] L20.9 -Patient presentati on consistent with atopic dermatitis .-Patient reports rash has improved with triamcinol one use. Patient to continue triamcinol one for another 7 days BID PRN.-CLAM SHUCKER ordering eucerin lotion for patient to use daily PRN.-CLAM SHUCKER provided atopic dermatitis care instructio ns. Type 2 obdulio betes mellitus 37489724 E11.21 -Uncontrol led.-Last A1c: 12 (05/14/23)- Continue current therapy-Jamie werner would like [facility]. CLAM SHUCKER to place orders.-CLAM SHUCKER discussed diet and lifestyle changes with the patient at length. CLAM SHUCKER provided numerous diabetes care instructio ns and discussed with the patient.-R ecommended diabetic diet-Educa manny to check feet daily [id number] Amanda Amin MA [facility] [address] [place] [address] 10/16/2023 11:23:31 10/17/2023 06:49:47 Long-term drug therapy [id number] Z79.899 Diabetes mellitus 710402 09 E11.69 Overweight 854438184 E66 .3 [id number] Janeth Pavon PA-C [facility] [address] [place] [address] 01/14/2024 09:33:39 01/19/2024 12:05:45 Long-term drug therapy 074184894 Z79.899 Type 2 obdulio betes mellitus 67050533 E11.9 Uncontroll ed type 2 diabetes mellitus 002376918 E11.65 ER now Overweight 139296878 E66 .3 [id number] Janeth Pavon PA-C [facility] [address] [place] [address] 01/26/2024 10:49:29 02/03/2024 14:35:51 Cirrhosis of liver 84848733 K74.69 Type 2 obdulio betes mellitus 88601125 E11.9 Adult heal th examination 167372702 Z00.00 Overweight 589857274 E66 .3 [id number] Janeth Pavon PA-C [facility] [address] [place] [address] 03/03/2024 10:44:06 03/04/2024 13:36:40 Chronic low back pain 243758414 M54.59 Morbid obesity 786927638 E66.01 [id number] Janeth Pavon PA-C [facility] [address] [place] [address] 03/08/2024 14:46:39 03/09/2024 16:00:13 Seizure 66350681 G40.89 Uncontroll ed type 2 diabetes mellitus 430620361 E11.65 Dissociati ve convulsions 343143594 F44.5 Overweight 382920921 E66 .3 [id number] Janeth Pavon PA-C [facility] [address] [place] [address] 03/23/2024 10:36:19 03/28/2024 10:16:17 Lumbar radiculopathy 936110048 M54.16 Uncontroll ed type 2 diabetes mellitus 905397141 E11.65 Overweight 432587323 E66 .3 [id number] Janeth Pavon PA-C [facility] [address] [place] [address] 04/06/2024 09:53:53 04/06/2024 16:23:24 Dysuria 16468231 R30.0 Uncontroll ed type 2 diabetes mellitus 053900839 E11.65 Generalize d anxiety disorder 27399350 F41.1 Overweight 120697498 E66 .3 [id number] Janeth Pavon PA-C [facility] [address] [place] [address] 06/28/2024 17:38:46 06/29/2024 10:11:55 Hemoptysis 16613456 R04.2 Functional gait abnormality [id number] 9103 R26.0 Health Concerns Section Related Observation [...] 2020 (MEDICAID REPLACEMENT - HMO) Camilo Curry [id number] Camilo Curry 03/08/2024 1 [employer] [place] ON [place] AFTER 2020 (MEDICAID REPLACEMENT - HMO) Camilo Curry [id number] Camilo Curry 03/23/2024 1 [employer] [place] (MEDICAID REPLACEMENT - HMO) Camilo Curry [id number] Camilo Curry 04/06/2024 1 [employer] [place] (MEDICA[place] REPLACEMENT - HMO) Camilo Curry [id number] Camilo Curry 06/28/2024 1 [employer] [place] ([place] REPLACEMENT - HMO) Camilo Curry [id number] Camilo Curry Notes Date Note Type Note Provider Name and Address Organization Details Recorded Time 03/03/2024 text/html 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 has chronometer 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 pierre low back pain and wants a brace in order to facilitate ADL such as standing ambulating and hygiene and meal prep Janeth Pavon PA-C Attn: Accounting, [address] [place], [address], [facility] 03/03/2024 11:28:09 03/08/2024 text/html first time seizu re thursday night..says approx an hour?...was found in yard..refused EMS..cant get into psych until end of april...no xanax for over a month...reports BS was off meter high..reports no post ictal Janeth Pavon PA-C Attn: [address], [address] [place], [address], [facility] 03/08/2024 15:28:41 03/23/2024 text/html injured his lowe r back moving furniture...needs MRI...xray and CT spine were negative...phys therapy was ineffective...was just in ER Janeth Pavon PA-C Attn: Accounting, [address] [place], [address], [facility] 03/23/2024 11:18:37 04/06/2024 text/html has burning urination for a week... every hour frequency...says he has been drinking nikhil justice vs nausea...also needs something for sedation for MRI Janeth Pavon PA-C Attn: Accounting[address] [facility] [place], [address], [facility] 04/06/2024 10:29:01 06/28/2024 text/html was in CHF and pneumonia at [facility]..now is also vomiting brown like blood on occasion..hx of varices..also starting to lose balance again and also having pain around back to mid line..his balance feels like he leans over progressively as he walks and loses his balance... Janeth Pavon PA-C Attn: Accounting[address] [facility], [place], [address], [facility] 06/28/2024 18:35:45
--- OUTSIDE RECORDS SUMMARY | 2024-07-30 07:40 | XMS_ITS | Clinical Summary ---
Author Organization [facility] Address [facility] [place] [address] Care Team Providers Care Buildings And Grounds Director Name Role Phone Braydon Pavon Primary Care Provider [phone] Allergies Active Allergy Reactions Criticality Noted Date [...] (two) times daily. Active vitamin D2, ergocalciferol, 13247 UNITS capsule Take 1 capsule (50,000 Units total) by mouth every 30 (thirty) days. Active Insulin Pen Needle (PEN NEEDLES) 32G X 4 MM Misc Inject 3 times daily 08/04/19 20 Active ONE TOUCH ULTRA TEST STRIPS test stripIndications:T ype 2 diabetes mellitus with hyperglycemia, with long-term current use of insulin ([facility]) Test 4 times daily 200 [...] hyperglycemia, with long-term current use of insulin ([facility]) Inject 0.4 mLs (200 Units total) into the skin 3 (three) times daily before meals. 18 mL 11 02/19/20 Active Additional Information Patient taking differently:200 Units Subcutaneous 3 times daily before meals,Pt taking 200 units three times, Reported on 05/31/2024 Continuous Glucose Sensor (DEXCOM G7 SENSOR) MiscIndications:Ty pe 2 diabetes mellitus with hyperglycemia, with long-term current use of insulin ([facility]) CHANGE SENSOR EVERY 10 DAYS 3 [...] hyperglycemia, with long-term current use of insulin ([facility]) Take 1 tablet (500 mg total) by mouth daily with supper. 90 tablet 1 05/31/19 Active Active Problems Problem Noted Date Diagnosed Date Diabetic neuropathy associat ed with type 2 diabetes mellitus ([facility]) 10/29/2020 Lumbar degenerative disc disease 05/23/2019 Essential hypertension 07/21/2018 TRACY (obstructive sleep apnea) 09/14/2016 Thrombocytopenia 09/14/2016 Esophageal varices ([facility]) 09/09/2016 Hepatic encephalopathy ([facility]) 017 Type 2 diabetes mellitus wit h hyperglycemia, with long-term current use of insulin ([facility]) 09/09/2016 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 s/p TIPS in 2015. -RUQ today showing TIPS with slower velocity compared to 08/2017 but still patent, rec close FU. -rifaximin -holding lactulose for diarrhea -should have BB outpt Resolved Problems Problem Noted Date Diagnosed Date Resolved Date Bacterial endocarditis ([facility]) 05/14/2020 06/05/2024 BLAND (nonalcoholic steatohepatitis) 07/21/2018 04/05/2019 Diabetes mellitus, type 2 ([facility]) 02/02/2018 06/05/2024 Morbid obesity 12/09/2016 06/05/2024 History of upper gastrointestinal hemorrhage 6 04/05/2019 Encounters Date Type Department Care Team Description 05/31/2024 12:00 PM CLEANING SPECIALIST Office Visit [facility] Diabetes and Endocrinology - [address] [address] Eva Power MD Type 2 Diabetes 05/31/2024 Travel 05/10/2024 Telephone [facility] Diabetes and Endocrinology - [address] [address] Eva Power MD Called To Cancel Office [...] Comments Blood Pressure 134/77 05/31/2024 8:59 AM CLEANING SPECIALIST Pulse 84 05/31/2024 8:47 AM CLEANING SPECIALIST Temperature 36.8 C (98.3 F) 02/15/2024 1:54 PM CDT Respiratory Rate 11 01/23/2024 12:30 AM CDT Oxygen Saturation 96% 05/31/2024 8:47 AM CLEANING SPECIALIST Inhaled Oxygen Concentration - - Weight 100.2 kg (221 lb) 02/15/2024 1:54 PM CDT Height 172.7 cm (5' 8 ) 05/31/2024 8:47 AM CLEANING SPECIALIST Body Mass Index 33.6 02/15/2024 1:54 PM CDT Plan of Treatment Upcoming Encounters Date Type Department Care Team (Late st Contact Info) Description 08/30/2024 12:00 PM CDT Office Visit [facility] Diabetes and Endocrinology - [address] [address] Eva Power MD [address] [place] [id number] Health Maintenance Due Date Last Done Comments [...] COVID-19 Vaccine ( season) 2024 12/29/2020, 12/08/2020 PHQ-2 (Physician [place]) 05/04/2024 02/15/2024 Hemoglobin A1C 08/29/2024 05/31/2024, 11/02, [...] this topic Medical Devices Implanted Type Area Zumba Instructor Device Identifier Shelf Expiration Date Model / Serial / Lot [employer] Stent-01/02/2021 Implanted: 021 (Quantity not on file) Stent Abdomen [employer] - [employer] R [employer] [id number] / / Description:Non-clinical silvia ting demonstrated that [...] field of 720 Gauss/cm or less Maximum ujjkv-hzgv-lefjkyoj specific absorption rate (IVANA) of 2-W/kg for 15 minutes of scanning for patient landmarks above the umbilicus. Maximum WB-IVANA of 1 W/kg for 15 min. of scanning for patient landmarks below the umbilicus. Procedures Procedure Name Priority Date/Time Associated Diagnosis Comments ALBUMIN URINE RANDOM W/CREATININE Routine 05/31/2024 10:36 AM CLEANING SPECIALIST Type 2 diabetes mellitus with hyperglycemia, with long-term current use of insulin ([facility]) COLLECT.CAPILLARY (FNGR,HEEL,EAR) Routine 05/31/2024 8:47 AM CLEANING SPECIALIST Type 2 diabetes mellitus with hyperglycemia, with long-term current use of insulin ([facility]) GLUCOSE BLOOD, MONITOR DEVICE Routine 05/31/2024 Type 2 diabetes mellitus with hyperglycemia, with long-term current use of insulin ([facility]) HEMOGLOBIN, GLYCOSYLATED Routine 05/31/2024 Type 2 diabetes mellitus with hyperglycemia, with long-term current use of insulin ([facility]) from Last 3 Months Results * ALBUMIN/CREATININE RATIO, RANDOM URINE (05/31/2024 10:36 AM CLEANING SPECIALIST) [facility] MICROALBUMIN (U) 10.4 <20 MG/L 05/31/19 7:37 PM CLEANING SPECIALIST [facility] CREATININE RANDOM (U) 47.4 MG/DL 05/31/2024 7:37 PM CLEANING SPECIALIST [facility] ALBUMIN/CREAT RATIO 21.9 <30 MG/G 05/31/2024 7:37 PM CLEANING SPECIALIST [facility] URINE SPECIMEN / Unknown 05/31/2024 10:36 AM CLEANING SPECIALIST Eva Power MD URINE ORDERABLES Final Result [facility] [address] [place] [address], [place] [phone] * HEMOGLOBIN, GLYCOSYLATED (05/31/2024) [facility] HGB A1C 10.3 % [facility] [address] [place] 05/31/2024 us Eva Power MD LABORATORY Final Result [facility] [address] [place] [address], [place] [phone] * (ABNORMAL) GLUCOSE BLOOD, MONITOR DEVICE (05/31/2024) Pathologist [facility] GLUCOSE WHOLE BLOOD 323(A) 70 - 100 mg/dL [facility], [place] 05/31/2024 us Eva Power MD LABORATORY Final Result [address], [place] [address] [place] [address], from Last 3 Months Insurance AET Care Teams Buildings And Grounds Director Relationship Specialty Start Date End Date Braydon Pavon PA [address] [place] [address] PCP - General PHYSICIAN BRICK KILN BURNER 03/02/19
--- OUTSIDE RECORDS SUMMARY | 2024-07-30 07:40 | XMS_ITS | Continuity of Care Document ---
Author Organization [facility] Address [address] [facility] [place] [address] Phone Care Team Providers Care Branch Office Administrator Name Role Phone Roosevelt Mcgee MD Unavailable Unavailable Allergies, Adverse Reactions, Alerts Substance Reaction Status Criticality CIPROFLOXACIN HCL Active No Informa tion ciprofloxacin Active No Information erythromycin base Active No Informa tion Sulfa (Sulfonamide Antibiotics) Active No Information PENICILLIN Active No Information Medications Medication Instructions Dosage Effective Dates (start - stop) Status Comments Drifting 10 mg-325 mg tablet take 1 tablet [...] Copied on Encounter OFFICE/OUTPA TIENT VISIT, EST [facility] [place], [address], [place], [id number], [place] tel:[phone] [facility] [place] anxiety1 (chief complaint) DM (chief complaint) liver cirrhosis (chief complaint) GERD1 (chief complaint) chronic pain (chief complaint) Type 2 diabetes mellitus without complicationsGenera lized Anxiety DisorderOther cirrhosis of liverChronic pain syndrome [address] [place], [place], [id number] , . tel:[phone] Referring Provider: Roosevelt Mcgee [address] [place], [place], [id number]. tel:[phone] Family History Family Member Type Diagnosis Age [...] takes lantus, tradejnta, humalog. His BG is [id number]. Pt sees endo for his DM. Pt [...] Mental Status Date Cognitive Assessment Orientation - [place] ed to time, place, person, situation.
--- OUTSIDE RECORDS SUMMARY | 2024-07-30 07:40 | XMS_ITS | Encounter Summary ---
Author Organization [facility] Address [address] [place] [address] Care Team Providers Care Squeegeer And Former Name Role Phone Braydon Pavon Primary Care Provider [phone] Nikolay Lancaster MD Unavailable [phone] Simon Lundberg MD Primary Care Provider [phone] Nacho Rodriguez MD Unavailable [phone] Elian Gross MD Unavailable Braydon Pavon Primary Care Provider [phone] Encounter Details Date Type Department Care Team (Late st Contact Info) Description 10/05/2020 Telephone [facility] [address] [place], [place] [id number] Trice Aldana, RT Social History Tobacco Use [...] file Legal Sex Male 2:52 PM SUPERVISOR ESTIMATOR AND DRAFTER Gender Identity Male 10/29/2020 12:37 PM CDT Sexual Orientation Straight 10/29/2020 12 :37 PM CDT documented as of this encounter Plan of Treatment Not on file documented as of this encounter Visit Diagnoses Not on filedocumented in this encounter Care Teams Squeegeer And Former Relationship Specialty Start Date End Date Braydon Pavon PA [address] [place] [address] PCP - General Family Practice 05/09/20 05/19/21 Simon Lundberg MD [address] [place] [address] PCP - General Family Medicine 05/20/21 08/22/21 Braydon Pavon PA [address] [place] [address] PCP - General 08/23/21 Nikolay Lancaster MD [address] [place] [address] 05/09/20 05/19/21 [place] [id number] [address] [facility] [address], [place] [address] Consulting Physician Endocrinology 05/20/21 [place] [address] [address] [facility] [address], [place] [address] Consulting Physician Internal Medicine 05/20/21 documented as of this encounter
--- OUTSIDE RECORDS SUMMARY | 2024-07-30 07:40 | XMS_ITS | Referral Summary ---
Author Organization [facility] Address [address] [place] [address] Care Team Providers Care Tool Dispatcher Name Role Phone Nacho Rodriguez MD Unavailable [phone] Elian Gross MD Unavailable Braydon Pavon Primary Care Provider [phone] Encounters Date Type Department Care Team Description 07/06/2024 Documentation [facility] Gastroenterology [address] [facility] [address]th [place] [address] [place] [address] Saen Rodas RN 07/05/2024 Results Follow-Up [facility] Gastroenterology [address] [facility] 12th [place] [address] [place] [address] Nilton Whatley MD 07/05/2024 9:40 AM WET END HELPER - 07/05/2024 11:59 PM WET END HELPER Hospital Encounter [facility] [address] [place] [address] Hepatic cirrhosis, unspecified hepatic cirrhosis type, unspecified whether ascites present (HCC) Discharge Disposition: Discharge to home or self care 06/02/2024 8:55 AM WET END HELPER Lab [facility] [address] [place] [phone] Hepatic cirrhosis, unspecified hepatic cirrhosis type, unspecified whether ascites present (HCC) 06/02/2024 8:00 AM WET END HELPER Office Visit [facility] Gastroenterology [address] [facility] 12th [place] [address] [place] [id number] Nilton Whatley MD Hepatic cirrhosis, unspecified hepatic [...] 1 each 05/21/19 22 Active Dexcom G6 Extrusion Press Adjuster misc 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 Use [...] 05/20/2021 Assessment & Plan (05/22/2021 3:58 PM WET END HELPER): A initial well visit to establish care [...] unless otherwise indicated. Need follow-up arranged with transmission engineer, die maintenance technician Planning on referral to paint tester Will need to check in to the tips follow-up Labs as ordered today, I will direct the A1 c to his die maintenance technician's office. Continuing the current regimen for now. Blood pressure is controlled at this time. We may need to try to get the stress test done as well. Screen for colon cancer 03/01/2021 Overview (03/01/2021): Added automatically from request for surgery [id number] Diabetic neuropathy associat ed with type 2 diabetes mellitus 10/29/2020 Assessment & Plan (10/29/2020 4:23 PM CDT): Chronic, worsening Start, gabapentin therapy Work on better diabetic control Vitamin D deficiency 10/29/2020 Assessment & Plan (10/29/2020 4:23 PM CDT): Check labs and based on that for the plans Bacterial endocarditis 05/14/2020 Assessment & Plan (05/14/2020 11:09 AM WET END HELPER): Unfortunately the patient's records from [place] are not available for my review. We [...] 05/14/2020 Assessment & Plan (05/14/2020 11:11 AM WET END HELPER): The patient's dyspnea on exertion is likely [...] - follow up in 6 weeks with BLURB WRITER Chelsea Driscoll ( to discuss about insulin [...] resume home regimen and follow-up with home die maintenance technician MATHEUS pain 10/11/2017 Morbid obesity 12/09/2016 [...] on file Legal Sex Male 2:52 PM WET END HELPER Gender Identity Male 10/29/2020 12:37 PM CDT Sexual Orientation Straight 10/29/2020 12 :37 PM CDT Last Filed Vital Signs Vital Sign Reading Time Taken Comments Blood Pressure 117/76 06/02/2024 7:36 AM WET END HELPER Pulse 88 06/02/2024 7:36 AM WET END HELPER Temperature 36.7 C (98.1 F) 06/02/2024 7:36 AM WET END HELPER Respiratory Rate 17 01/20/2024 12:0 0 PM CDT Oxygen Saturation 92% 06/02/2024 7:36 AM WET END HELPER Inhaled Oxygen Concentration - - Weight 103.1 kg (227 lb 6.4 oz) 06/02/2024 7:36 AM WET END HELPER Height 172.7 cm (5' 8 ) 11/23/2023 7:53 AM CDT Body Mass Index 34.58 11/23/2023 7:53 AM CDT Plan of Treatment Not on file Medical Devices Implanted Type Area Air Pollution Control Engineer Device Identifier Shelf Expiration Date Model / Serial / Lot [employer] Peripheral Vascular [id number] Lifestar 14mm 60mm 80cm Stent Biliary - [id number] Implanted:Qty: 1 on 01/10/2021 at [facility] [employer] 09/15/2023 [id number] / / [id number] Procedures Procedure Name Priority Date/Time Associated Diagnosis Comments US LIVER W COMPLETE DOPPLER Schedule Routine, Read Routine (OP Routine) 07/05/2024 11:25 AM WET END HELPER Hepatic cirrhosis, unspecified hepatic cirrhosis type, unspecified whether ascites present (HCC) EGFR Routine 06/02/2024 8:48 AM WET END HELPER Hepatic cirrhosis, unspecified hepatic cirrhosis type, unspecified whether ascites present (HCC) COMPREHENSIVE METABOLIC PANEL Routine 06/02/2024 8:48 AM WET END HELPER Hepatic cirrhosis, unspecified hepatic cirrhosis type, unspecified whether ascites present (HCC) PROTIME-INR Routine 06/02/2024 8:48 AM WET END HELPER Hepatic cirrhosis, unspecified hepatic cirrhosis type, unspecified whether ascites present (HCC) [id number], TUMOR MARKER Routine 06/02/2024 8:48 AM WET END HELPER Hepatic cirrhosis, unspecified hepatic cirrhosis type, unspecified whether ascites present (HCC) BILIRUBIN, DIRECT Routine 06/02/2024 8:4 8 AM WET END HELPER Hepatic cirrhosis, unspecified hepatic cirrhosis type, unspecified whether ascites present (HCC) HEMOGLOBIN A1C STAT 11/23/2023 8:40 AM CDT LIPID PANEL Routine 05/20/2021 9:36 AM WET END HELPER Morbid obesity with body mass index (BMI) of 40.0 to 44.9 in adult (HCC) ALBUMIN CREATININE RATIO, URINE Routine 05/20/2021 9:36 AM WET END HELPER Diabetic neuropathy associated with type 2 diabetes mellitus (HCC) COLONOSCOPY 12/17/2020 10:24 AM CDT SERUM HEPATITIS PANEL Routine 08/23/2015 5:23 PM CDT from Last 3 Months or Most Recently Relevant to Health Maintenance Results * US Liver W Complete Doppler (C) (07/05/2024 11:25 AM WET END HELPER) Anatomical Region Laterality Modality Abdomen N/A Ultrasound 07/05/2024 11:3 7 AM WET END HELPER Impressions 07/05/2024 11:57 AM WET END HELPER 1. Sonographic features of cirrhosis. 2. US [...] Maurice Paul M.D. Narrative 07/05/2024 11:57 AM WET END HELPER EXAMINATION: 1. LIVER SONOGRAM 2. LIVER DOPPLER [...] Re sult * eGFR (06/02/2024 8:48 AM WET END HELPER) eGFR >90 >=60 mL/min/1. 73 m2 Comment: [...] last reviewed 2021. Blood 06/02/2024 8:48 AM WET END HELPER 06/02/2024 9:05 AM WET END HELPER us Nilton Whatley MD LAB BLOOD ORDERABLES Final Result [facility] Department [place] [address] * [id number], Tumor Marker (06/02/2024 8:48 AM WET END HELPER) alpha Fetoprotein <2.0 <=8.3 ng/mL Comment: Interpretive [...] 2018;[id number] Jeyson Sanches et al. Clin Chem 2014;[id number]. Current interpretive data was last revised 2022. Blood 06/02/2024 8:48 AM WET END HELPER 06/02/2024 9:00 AM WET END HELPER us Nilton M. Korenblat MD LAB BLOOD ORDERABLES Final Result [facility] Department [place] [address] * (ABNORMAL) Protime-INR (06/02/2024 8:48 AM WET END HELPER) PT 13.5(H) 9.7 - 13.0 sec INR 1.24(H) 0.90 - 1.20 [facility] Comment: Interpretive data Oral anticoagulant therapeutic ranges: Venous thromboembolism prophylaxis or treatment: 2.0-3.0 CARDIOLOGY Standard range: 2.0-3.0 High-intensity range: 2.5-3.5 Refer to indication-specific guidelines for appropriate target ranges for prosthetic heart valve replacement. Current interpretive data was last revised on 2019. Blood 06/02/2024 8:48 AM WET END HELPER 06/02/2024 9:00 AM WET END HELPER us Nilton Whatley MD LAB BLOOD ORDERABLES Final Result Performing Organization Address [facility] Co de Phone Number [facility] [place] [place] [address] * (ABNORMAL) Bilirubin, direct (06/02/2024 8:48 AM WET END HELPER) Pathologist [facility] Bilirubin, direct 0.6(H) 0.1 - 0.3 mg/dL Comment:Hemolyzed; result ma y be falsely decreased Blood 06/02/2024 8:48 AM WET END HELPER 06/02/2024 9:00 AM WET END HELPER us Nilton Whatley MD LAB BLOOD ORDERABLES Final Result Performing Organization Address City/State/[facility] Co de Phone Number [facility] [place] [address] * (ABNORMAL) Comprehensive metabolic panel (06/02/2024 8:48 AM WET END HELPER) Pathologist [facility] Sodium 141 135 - 145 mmol/L Potassium, pl 4.3 3.3 - 4.9 mmol/L [facility] Comment:Hemolyzed; Potassium value may be falsely elevated by as much as 0.3-0.5 mmol/L. Suggest redraw and reanalysis. Chloride 107 97 - 110 mmol/L [facility] CO2 27 22 - 32 mmol/L [facility] Anion gap 7 2 - 15 mmol/L [facility] BUN 13 6 - 25 mg/dL [facility] Creatinine 0.76(L) 0.80 - 1.30 mg/dL [facility] Glucose 242(H) 70 - 199 mg/dL [facility] Comment: Interpretive Data Fasting glucose [...] Calcium 9.6 8.5 - 10.3 mg/dL [facility] Bilirubin, total 3.0(H) 0.1 - 1.2 mg/dL [facility] Protein, pl 6.9 6.5 - 8.5 g/dL [facility] Albumin 3.8 3.5 - 5.0 g/dL [facility] Alk phos 90 40 - 130 Units/L [facility] ALT 19 7 - 55 Units/L [facility] AST 38 10 - 50 Units/L [facility] Comment:Hemolyzed; result ma y be falsely elevated Blood 06/02/2024 8:48 AM WET END HELPER 06/02/2024 9:00 AM WET END HELPER Nilton Whatley MD LAB BLOOD ORDERABLES Final Result [facility] [place] [address] * Albumin Creatinine Ratio, Urine (05/20/2021 9:36 AM WET END HELPER) Albumin Ur <12.0 mg/L [facility] Comment: Interpretive Data No reference range established. Current interpretive data was last revised 2018. Creatinine Ur 47.6 mg/dL [facility] Comment: Interpretive Data No reference range established. Current interpretive data was last revised 2018. Albumin Creatinine Ratio, Ur <25 1 - 29 mg/g [facility] Urine 05/20/2021 9:36 AM WET END HELPER 05/20/2021 7:41 PM WET END HELPER us Simon Lundberg MD LAB URINE ORDERABLES Final Result [facility] [address] [place] [address] * (ABNORMAL) Lipid panel (05/20/2021 9:36 AM WET END HELPER) Cholesterol 110 30 - 199 mg/dL [facility] [...] ratio 3 [facility] Blood 05/20/2021 9:36 AM WET END HELPER 05/20/2021 7:41 PM WET END HELPER us Simon Lundberg MD LAB BLOOD ORDERABLES Final Result Performing Organization Address City/State/[place] [address] [facility] Department [place] [address] * COLONOSCOPY (12/17/2020 10:24 AM CDT) Anatomical Region Laterality Modality Other Narrative Procedure Note Elian Gross MD - 12/17/2020 10:24 AM CDT ENDOSCOPY LAB Patient Name: Camilo Curry Procedure Date: 12/17/2020 10:24 AM Date of : 1970 Admit Type: Outpatient Age: 50 Gender: Male Attending MD: Elian Vivar M.D. Room: [facility] ENDOSCOPY ROOM 02 Note Status: Finalized [...] the physician, the nurse, the anesthesiologist, the air shovel operator and thetechnician in the pre-procedure area [...] The scope was passed under direct vision.The [id number] was introduced through the anusand advanced to the hepatic flexure. The colonoscopywas performed without difficulty. The patient tolerated the procedure well. The quality of the bowel preparation was unsatisfactory. The quality of the bowel preparation was evaluated using the BBPS([place] Bowel Preparation Scale) with scores of: RightColon [...] 12/17/2020 10:24 AM Elian Draper MD ENDOSCOPY NC OCEDURES Final Result * Serum Hepatitis panel (08/23/2015 5:23 PM CDT) HBV surface ag Negative NEG HISTO RICAL RESULTS HCV ab Negative NEG HISTORICAL RESULTS Comment: Interpretive Data If confirmation is required, call Laboratory Customer Service to request sample to be sent to [facility] for Hepatitis C Virus (HCV) RNA Detection and Quantitation by Real-Time Reverse Sheet Rock Applicator-PCR (RT-PCR). Current interpretive data was last revised [...] Most Recently Relevant to Health Maintenance [facility] [employer] [place] Advance Directives For more information, please contact: [phone] * Full Code (Latest Code Status on [...] 11:57 AM 02/03/2018 5:26 AM Care Teams Tool Dispatcher Relationship Specialty Start Date End Date Braydon Pavon PA [address] [place] [address] PCP - General 08/23/21 [place] [id number] [address] [facility] [address] [place] [address] Consulting Physician Endocrinology 05/20/21 [place] [id number] [address] [facility] [address] [place] [address] Consulting Physician Internal Medicine 05/20/21
--- OUTSIDE RECORDS SUMMARY | 2024-07-30 07:40 | XMS_ITS | Clinical Summary ---
Author Organization [facility] Address [address] [place] [address] Care Team Providers Care Ton Container Filler Name Role Phone Braydon Pavon Primary Care Provider [phone] Source Comments [facility],non-owned Affiliates and Associated Physician Practices is amultiple site organization consisting of ambulatory clinics and hospital sitesin [place], [place], [place] and [place]. This disclosure is being madepursuant to the Care Everywhere program and may not contain all information available regarding this patient. Last updated 18.[facility] [employer] Allergies Active Allergy Reactions Criticality Noted Date [...] CONFIRMED WITH [facility] [phone], Reason: Provider adjusted, Reported on 06/09/2024 blood [...] dissolve on the tongue Active HYDROcodone-aceta minophen (Milton) 10-325 MG tablet Take 1 (one) tablet [...] Insulin Regular Human (HUMULIN R U-500 KWIKPEN CA) Inject 200 Units subcutaneously 3 times daily [...] Department Care Team Description 06/08/2024 3:27 PM INSURANCE SPECIALIST - 06/10/2024 3:30 PM INSURANCE SPECIALIST Hospital Encounter [facility] 6N Telemetry [address] [place] [address] Louie Hi MD Fatima, Noor [...] care, and heating? Not very hard 06/08/2024 [facility] - Occupational Stress [...] any time in the past 12 m [facility], were you homeless or living in a [facility] (including now)? No 06/08/2024 Sex and Gender Information Value Date Recorded Sex Assigned at Not on file Gender Identity Not on file Sexual Orientation Not on file Last Filed Vital Signs Vital Sign Reading Time Taken Comments Blood Pressure 110/69 06/10/2024 3:45 PM INSURANCE SPECIALIST Pulse 81 06/10/2024 3:45 PM INSURANCE SPECIALIST Temperature 36.8 C (98.2 F) 06/10/2024 3:45 PM INSURANCE SPECIALIST Respiratory Rate 19 06/10/2024 3:45 PM INSURANCE SPECIALIST Oxygen Saturation 94% 06/10/2024 3:45 PM INSURANCE SPECIALIST Inhaled Oxygen Concentration - - Weight 99.8 kg (220 lb) 06/08/2024 3:47 PM INSURANCE SPECIALIST Height 170.2 cm (5' 7 ) 06/08/2024 3:47 PM INSURANCE SPECIALIST Body Mass Index 34.46 06/08/2024 3:47 PM INSURANCE SPECIALIST Plan of Treatment Health Maintenance Due Date [...] CARDIAC RHYTHM STRIP ORDER 06/13/2024 10:53 PM INSURANCE SPECIALIST ECHO COMPLETE W CONTRAST Routine 06/10/2024 1:18 PM INSURANCE SPECIALIST Acute congestive heart failure, unspecified heart failure type GLUCOSE - POINT OF CARE Routine 06/10/2024 12:48 PM INSURANCE SPECIALIST GLUCOSE - POINT OF CARE Routine 06/10/2024 7:58 AM INSURANCE SPECIALIST GLUCOSE - POINT OF CARE Routine 06/10/2024 7:14 AM INSURANCE SPECIALIST GLUCOSE - POINT OF CARE Routine 06/10/2024 6:41 AM INSURANCE SPECIALIST BASIC METABOLIC PANEL (CALCIUM TOTAL) AM Draw 06/10/2024 4:45 AM INSURANCE SPECIALIST CBC W/O DIFFERENTIAL AM Draw 06/10/2024 4:45 AM INSURANCE SPECIALIST GLUCOSE - POINT OF CARE Routine 06/09/2024 9:38 PM INSURANCE SPECIALIST GLUCOSE - POINT OF CARE Routine 06/09/2024 5:17 PM INSURANCE SPECIALIST GLUCOSE - POINT OF CARE Routine 06/09/2024 12:40 PM INSURANCE SPECIALIST PT EVAL AND TREAT Routine 06/09/2024 12: 04 PM INSURANCE SPECIALIST GLUCOSE - POINT OF CARE Routine 06/09/2024 7:48 AM INSURANCE SPECIALIST GLUCOSE - POINT OF CARE Routine 06/09/2024 6:07 AM INSURANCE SPECIALIST HEMOGLOBIN A1C Routine 06/09/2024 1:59 AM INSURANCE SPECIALIST CBC W/O DIFFERENTIAL Routine 06/09/2024 1:59 AM INSURANCE SPECIALIST COMPREHENSIVE METABOLIC PANEL Routine 06/09/2024 1:59 AM INSURANCE SPECIALIST LIPID PROFILE Routine 06/09/2024 1:59 AM INSURANCE SPECIALIST MAGNESIUM BLOOD Routine 06/09/2024 1:59 AM INSURANCE SPECIALIST PHOSPHORUS BLOOD Routine 06/09/2024 1:59 AM INSURANCE SPECIALIST TSH REFLEX FREE T4 Routine 06/09/2024 1: 59 AM INSURANCE SPECIALIST GLUCOSE - POINT OF CARE Routine 06/08/2024 8:59 PM INSURANCE SPECIALIST XR CHEST 1VW PORTABLE Routine 06/08/2024 5:04 PM INSURANCE SPECIALIST Elevated troponin B-TYPE NATRIURETIC PEPTIDE STAT 06/08/2024 4:39 PM INSURANCE SPECIALIST MAGNESIUM BLOOD STAT 06/08/2024 4:39 PM INSURANCE SPECIALIST TROPONIN-I HIGH SENSITIVE STAT 06/08/2024 4:39 PM INSURANCE SPECIALIST COMPREHENSIVE METABOLIC PANEL STAT 06/08/2024 4:39 PM INSURANCE SPECIALIST CBC W AUTO DIFFERENTIAL STAT 06/08/2024 4:39 PM INSURANCE SPECIALIST GLUCOSE - POINT OF CARE Routine 06/08/2024 3:34 PM INSURANCE SPECIALIST from Last 3 Months Results * CARDIAC RHYTHM STRIP ORDER (06/13/2024 10:53 PM INSURANCE SPECIALIST) Narrative 06/13/2024 10:53 PM INSURANCE SPECIALIST Ordered by an unspecified provider. Scanned Document CARDIAC SERVICES ORD ERABLES * ECHO COMPLETE W CONTRAST (06/10/2024 1:18 PM INSURANCE SPECIALIST) LA vol index 0.022 l/m [facility] CV [...] Region Laterality Modality Ultrasound 06/10/2024 9:00 AM INSURANCE SPECIALIST Narrative 06/10/2024 1:53 PM INSURANCE SPECIALIST Summary * The left ventricle is normal [...] 9:00 AM Patient Status: I/P Study Site: [facility] Primary Location: [facility] EStudy Info Exam Type: ECHO COMPLETE W CONTRAST Indications I50.9 - Acute congestive heart failure, unspecified heart failure type (HCC) Procedure(s) * A complete 2D, color Doppler, spectral Doppler and M-Mode transthoracic echocardiogram was performed with Definity. Staff Referring Physician: López Yeager Ordering Provider: López Yeager Attending Physician: López Yeager Health Care Analyst: Raven Harrison Left Ventricle The left ventricle [...] 9:00 AM Patient Status: I/P Study Site: [facility] Primary Location: [facility] EStudy Info Exam Type: ECHO COMPLETE W CONTRAST Indications I50.9 - Acute congestive heart failure, unspecified heart failuretype (HCC) Procedure(s) * A complete 2D, color Doppler, spectral Doppler and M-Modetransthoracic echocardiogram was performed with Definity. Staff Referring Physician: López Yeager Ordering Provider: López Yeager Attending Physician: López Yeager Health Care Analyst: Raven Harrison Left Ventricle The left ventricle [...] - POINT OF CARE (06/10/2024 12:48 PM INSURANCE SPECIALIST) Only the most recent of11 resultswithin the time period is included. Pathologist [facility] Glucose WB/POC 159(H) 70 - 99 mg/dL 06/10/2024 12:53 PM INSURANCE SPECIALIST [facility] Specimen Type Cap Fingerstick 2024 12:53 PM INSURANCE SPECIALIST [facility] Blood BLOOD SPECIMEN / Unknown 06/10/2024 12:48 PM INSURANCE SPECIALIST 06/10/2024 12:53 PM INSURANCE SPECIALIST Olimpia No MD LAB - POINT OF CARE ORDERABLES [facility] [address] [place] [address] * (ABNORMAL) CBC W/O DIFFERENTIAL (06/10/2024 4:45 AM INSURANCE SPECIALIST) Only the most recent of2 resultswithin the time period is included. Pathologist [facility] WBC 2.3(L) 4.0 - 10.7 x10E9/L 06/10/2024 5:36 AM INSURANCE SPECIALIST [facility] RBC Count 4.44 4.30 - 5.80 x10E12/L 06/10/2024 5:[address] [facility] Hemoglobin 13.2(L) 13.3 - 17.5 g/dL 06/10/2024 5:[address] [facility] Hematocrit 37.8(L) 38.7 - 51.1 % 06/10/2024 5:[address] [facility] MCV 85.1 80.0 - 98.0 fL 06/10/2024 5:[address] [facility] MCH 29.7 26.7 - 33.6 pg 06/10/2024 5:[address] [facility] MCHC 34.9 31.7 - 36.3 g/dL 06/10/2024 5:[address] [facility] RDW-CV 15.2(H) 11.3 - 14.8 % 06/10/2024 5:[address] [facility] Platelet Count 64(L) 150 - 420 x10E9/L 06/10/2024 5:[address] [facility] MPV 10.9 7.8 - 11.4 fL 06/10/2024 5:[address] [facility] Blood BLOOD SPECIMEN / Unknown Venipuncture / Unknown 06/10/2024 4:45 AM INSURANCE SPECIALIST 06/10/2024 5:01 AM [facility] Olimpia No MD LAB - HEMATOLOGY ORD ERABLES [facility] [address] [place] [address] * (ABNORMAL) BASIC METABOLIC PANEL (CALCIUM TOTAL) (06/10/2024 4:45 AM [facility] Glucose 107(H) 70 - 99 mg/dL 06/10/2024 5:[address] [facility] Sodium 139 136 - 145 mmol/L 06/10/2024 5:[address] [facility] Potassium 3.4(L) 3.5 - 5.1 mmol/L 06/10/2024 5:[address] [facility] Chloride 107 98 - 107 mmol/L 06/10/2024 5:[address] [facility] CO2 22 22 - 29 mmol/L 06/10/2024 5:[address] [facility] Calcium 8.2(L) 8.4 - 10.4 mg/dL 06/10/2024 5:[address] [facility] Anion Gap 10 6 - 16 mmol/L 06/10/2024 5:[address] [facility] BUN 15 7 - 26 mg/dL 06/10/2024 5:[address] [facility] Creatinine 0.70(L) 0.72 - 1.25 mg/dL 06/10/2024 5:[address] [facility] eGFR by CKD-EPI >90 >=90 mL/min/1.7 3 m2 06/10/2024 5:[address] [facility] Blood BLOOD SPECIMEN / Unknown Venipuncture / Unknown 06/10/2024 4:45 AM INSURANCE SPECIALIST 06/10/2024 5:01 AM INSURANCE SPECIALIST Olimpia No MD LAB - CHEMISTRY LIONEL WHITT Performing Organization Address [facility] Co de Phone Number [facility] [address] [place], [place] [id number] * TSH REFLEX FREE T4 (06/09/2024 1:59 AM INSURANCE SPECIALIST) TSH 0.559 0.350 - 4.940 uIU/mL 06/09/2024 2:[address] [facility] Blood BLOOD SPECIMEN / Unknown Venipuncture / Unknown 06/09/2024 1:59 AM INSURANCE SPECIALIST 06/09/2024 2:15 AM INSURANCE SPECIALIST López Yeager MD LAB - CHEMISTRY ORDKunal WHITT Performing Organization Address [facility] Co de Phone Number [facility] [address] [place] [address] * (ABNORMAL) HEMOGLOBIN A1C (06/09/2024 1:59 AM INSURANCE SPECIALIST) Hemoglobin A1c 9.1(H) <5.7 % 06/09/2024 2:28 AM INSURANCE SPECIALIST [facility] Estimated Average Glucose 214 mg/dL 06/09/2024 2:28 AM INSURANCE SPECIALIST [facility] Blood BLOOD SPECIMEN / Unknown Venipuncture / Unknown 06/09/2024 1:59 AM INSURANCE SPECIALIST 06/09/2024 2:15 AM INSURANCE SPECIALIST [facility] - 06/09/2024 2:28 AM [facility] HbA1c Interpretation: Normal: < 5.7% Pre-diabetes: 5.7-6.4% [...] Yeager MD LAB - CHEMISTRY LIONEL WHITT [facility] Organization Address City/State/ZIP Co de Phone Number [facility] [address] [place] [address] * (ABNORMAL) COMPREHENSIVE METABOLIC PANEL (06/09/2024 1:59 AM INSURANCE SPECIALIST) Only the most recent of2 resultswithin the time period is included. Pathologist [facility] Glucose 220(H) 70 - 99 mg/dL 06/09/2024 3:[address] [facility] Sodium 134(L) 136 - 145 mmol/L 06/09/2024 3:[address] [facility] Potassium 4.2 3.5 - 5.1 mmol/L 06/09/2024 3:[address] [facility] Chloride 104 98 - 107 mmol/L 06/09/2024 3:[address] [facility] CO2 21(L) 22 - 29 mmol/L 06/09/2024 3:[address] [facility] Calcium 8.1(L) 8.4 - 10.4 mg/dL 06/09/2024 3:[address] [facility] Anion Gap 9 6 - 16 mmol/L 06/09/2024 3:[address] [facility] BUN 18 7 - 26 mg/dL 06/09/2024 3:[address] [facility] Creatinine 0.85 0.72 - 1.25 mg/dL 06/09/2024 3:[address] [facility] Alkaline Phosphatase 65 40 - 150 U/L 06/09/2024 3:[address] [facility] ALT 14 0 - 55 U/L 06/09/2024 3:[address] [facility] AST 50(H) 5 - 34 U/L 06/09/2024 3:[address] [facility] Protein Total 5.8(L) 6.4 - 8.3 gm/dL 06/09/2024 3:[address] [facility] Albumin 2.8(L) 3.4 - 5.0 gm/dL 06/09/2024 3:[address] [facility] Bilirubin Total 3.2(H) 0.2 - 1.2 mg/dL 06/09/2024 3:[address] [facility] eGFR by CKD-EPI >90 >=90 mL/min/1.7 3 m2 06/09/2024 3:[address] [facility] Blood BLOOD SPECIMEN / Unknown Venipuncture / Unknown 06/09/2024 1:59 AM INSURANCE SPECIALIST 06/09/2024 2:15 AM [facility] López Yeager MD LAB - CHEMISTRY LIONEL WHITT [facility] [address] [place] [address] * PHOSPHORUS BLOOD (06/09/2024 1:59 AM [facility] Phosphorus 3.1 2.5 - 4.5 mg/dL 06/09/2024 2:[address] [facility] Blood BLOOD SPECIMEN / Unknown Venipuncture / Unknown 06/09/2024 1:59 AM INSURANCE SPECIALIST 06/09/2024 2:15 AM INSURANCE SPECIALIST López Yeager MD LAB - CHEMISTRY LIONEL WHITT Performing Organization Address [facility] de Phone Number [facility] [address] [place] [address] * MAGNESIUM BLOOD (06/09/2024 1:59 AM INSURANCE SPECIALIST) Only the most recent of2 resultswithin the time period is included. Magnesium 1.7 1.6 - 2.6 mg/dL 06/09/2024 2:40 AM INSURANCE SPECIALIST [facility] Blood BLOOD SPECIMEN / Unknown Venipuncture / Unknown 06/09/2024 1:59 AM INSURANCE SPECIALIST 06/09/2024 2:15 AM INSURANCE SPECIALIST López Yeager MD LAB - CHEMISTRY LIONEL WHITT Performing Organization Address [facility] de Phone Number [facility] [address] [place] [id number] * (ABNORMAL) LIPID PROFILE (06/09/2024 1:59 AM INSURANCE SPECIALIST) Cholesterol 69 <200 mg/dL 06/09/2024 2:[address] [facility] Triglycerides 99 <150 mg/dL 06/09/2024 2:[address] [facility] HDL Cholesterol 19(L) >40 mg/dL 2:[address] [facility] LDL Calculated 30 <130 mg/dL 06/09/2024 2:[address] [facility] VLDL Calculated 20 <=30 mg/dL 2:[address] [facility] Chol HDL Ratio 3.6 <4.5 06/09/2024 2:[address] [facility] LDL/HDL Ratio 1.6 <5.0 06/09/2024 2:[address] [facility] Blood BLOOD SPECIMEN / Unknown Venipuncture / Unknown 06/09/2024 1:59 AM INSURANCE SPECIALIST 06/09/2024 2:15 AM INSURANCE SPECIALIST López Yeager MD LAB - CHEMISTRY LIONEL WHITT [facility] [address] [place] [address] * XR Chest 1Vw Portable (06/08/2024 5:04 PM INSURANCE SPECIALIST) Anatomical Region Laterality Modality Chest Computed Radiogr aphy 06/08/2024 6:49 PM INSURANCE SPECIALIST Impressions 06/08/2024 6:50 PM INSURANCE SPECIALIST IMPRESSION: No acute disease in the chest. Borderline cardiomegaly. > Interpreting Provider: Harry England MD on 06/08/2024 6:50 PM Narrative 06/08/2024 6:50 PM INSURANCE SPECIALIST PROCEDURE: XR CHEST 1VW PORTABLE DATE/TIME OF [...] silhouette. There are no definite pleural effusions. pvc monitor wires obscure the chest bilaterally. Procedure [...] (ABNORMAL) TROPONIN-I HIGH SENSITIVE (06/08/2024 4:39 PM INSURANCE SPECIALIST) Troponin I High Sensitive 54(H) <=35 ng/L 06/08/2024 5:[address] [facility] Blood BLOOD SPECIMEN / Unknown Venipuncture / Unknown 06/08/2024 4:39 PM INSURANCE SPECIALIST 06/08/2024 4:55 PM INSURANCE SPECIALIST López Yeager MD LAB - CHEMISTRY LIONEL WHITT [facility] Organization Address City/State/ZIP Co de Phone Number [facility] [address] [place] [address] * (ABNORMAL) CBC W AUTO DIFFERENTIAL (06/08/2024 4:39 PM INSURANCE SPECIALIST) [facility] WBC 4.2 4.0 - 10.7 x10E9/L 06/08/2024 5:[address] [facility] RBC Count 5.01 4.30 - 5.80 x10E12/L 06/08/2024 5:[address] [facility] Hemoglobin 14.8 13.3 - 17.5 g/dL 06/08/2024 5:[address] [facility] Hematocrit 42.1 38.7 - 51.1 % 06/08/2024 5:[address] [facility] MCV 84.0 80.0 - 98.0 fL 06/08/2024 5:[address] [facility] MCH 29.5 26.7 - 33.6 pg 06/08/2024 5:[address] [facility] MCHC 35.2 31.7 - 36.3 g/dL 06/08/2024 5:[address] [facility] RDW-CV 15.9(H) 11.3 - 14.8 % 06/08/2024 5:[address] [facility] Platelet Count 67(L) 150 - 420 x10E9/L 06/08/2024 5:[address] [facility] MPV 10.4 7.8 - 11.4 fL 06/08/2024 5:[address] [facility] Neutrophil % 67.5 41.0 - 74.0 % 06/08/2024 5:[address] [facility] Lymphocyte % 15.4(L) 17.0 - 47.0 % 06/08/2024 5:12 PM INSURANCE SPECIALIST [facility] Monocyte % 15.9(H) 3.0 - 11.0 % 06/08/2024 5:12 PM INSURANCE SPECIALIST [facility] Eosinophil % 0.0 0.0 - 7.0 % 06/08/2024 5:12 PM INSURANCE SPECIALIST [facility] Basophil % 0.7 0.0 - 1.6 % 06/08/2024 5:12 PM INSURANCE SPECIALIST [facility] Immature Granulocytes % 0.5 0.0 - 1.0 % 06/08/2024 5:12 PM INSURANCE SPECIALIST [facility] Neutrophil Absolute 2.80 1.60 - 7.50 x10E9/L 06/08/2024 5:12 PM INSURANCE SPECIALIST [facility] Lymphocyte Absolute 0.64(L) 1.00 - 4.40 x10E9/L 06/08/2024 5:[address] [facility] Monocyte Absolute 0.66 0.15 - 1.00 x10E9/L 06/08/2024 5:[address] [facility] Eosinophil Absolute 0.00 0.00 - 0.60 x10E9/L 06/08/2024 5:12 PM INSURANCE SPECIALIST [facility] Basophil Absolute 0.03 0.00 - 0.13 x10E9/L 06/08/2024 5:12 PM INSURANCE SPECIALIST [facility] Blood BLOOD SPECIMEN / Unknown Venipuncture / Unknown 06/08/2024 4:39 PM INSURANCE SPECIALIST 06/08/2024 4:55 PM INSURANCE SPECIALIST López Yeager MD [facility] Organization Address City/State/[facility] Co de Phone Number [facility] [address] [place] [address] * (ABNORMAL) B-TYPE NATRIURETIC PEPTIDE (06/08/2024 4:39 PM INSURANCE SPECIALIST) BNP 345(H) <=100 pg/mL 06/08/2024 5:19 PM INSURANCE SPECIALIST [facility] Blood BLOOD SPECIMEN / Unknown Venipuncture / Unknown 06/08/2024 4:39 PM INSURANCE SPECIALIST 06/08/2024 4:55 PM INSURANCE SPECIALIST López Yeager MD LAB - CHEMISTRY ORDE [facility] [address] [place] [address] from Last 3 Months Advance Directives * Full Code (Latest Code Status on File) Date Activated Date Inactivated Comments 06/08/2024 3:48 PM 06/10/2024 7:18 PM Care Teams Ton Container Filler Relationship Specialty Start Date End Date Braydon Pavon PA [address] [place] [address] PCP - General Physician Boat Designer 07/14/23
--- OUTSIDE RECORDS SUMMARY | 2024-07-30 07:40 | XMS_ITS | Encounter Summary ---
Author Organization [facility] Address [facility] [place] [address] Care Team Providers Care Market President Name Role Phone None, Provider Primary Care Provider Braydon Piedra Primary Care Provider [phone] Encounter Details Date Type Department Care Team (Late st Contact Info) Description 10/09/2018 Abstract SFL CONVERSION [address] [place] [address] , Generic Conversion, Social History Tobacco Use [...] 12:00 PM CDT Office Visit [facility] Diabetes and Endocrinology - [address] [address] Eva Power MD [address] [place] [phone] documented as of this encounter Visit Diagnoses Not on filedocumented in this encounter Care Teams Market President Relationship Specialty Start Date End Date None, Provider, PCP - General 02/08/19 03/01/19 Braydon Pavon PA [address] [place] [address] PCP - General PHYSICIAN DYE RANGE TENDER 03/02/19 documented as of this encounter
--- OUTSIDE RECORDS SUMMARY | 2024-07-30 07:40 | XMS_ITS | Encounter Summary ---
Author Organization [facility] Address [address] [place] [address] Care Team Providers Care Pull Over Name Role Phone Braydon Pavon Primary Care Provider [phone] Nikolay Lancaster MD Unavailable [phone] Simon Lundberg MD Primary Care Provider [phone] Nacho Rodriguez MD Unavailable [phone] Elian Gross MD Unavailable Braydon Pavon Primary Care Provider [phone] Encounter Details Date Type Department Care Team (Late st Contact Info) Description 09/14/[address] 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 Gender Identity Male 10/29/2020 12:37 PM CDT Sexual Orientation Straight 10/29/2020 12 :37 PM CDT documented as of this encounter Plan of Treatment Not on file documented as of this encounter Visit Diagnoses Not on filedocumented in this encounter Care Teams Pull Over Relationship Specialty Start Date End Date Braydon Pavon PA [address] [place] [address] PCP - General Family Practice 05/09/20 05/19/21 Simon Lundberg MD [address] [place] [address] PCP - General Family Medicine 05/20/21 08/22/21 Braydon Pavon PA [address] [place] [address] PCP - General 08/23/21 Nikolay Lancaster MD [address] [place] [address] 05/09/20 05/19/21 [place] [address] [facility] [address], [place] [address] Consulting Physician Endocrinology 05/20/21 [place] [id number] [facility] [address], [place] [address] Consulting Physician Internal Medicine 05/20/21 documented as of this encounter
--- OUTSIDE RECORDS SUMMARY | 2024-07-30 07:40 | XMS_ITS | Clinical Summary ---
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 Use [...] 05/20/2021 Assessment & Plan (05/22/2021 3:58 PM CLAMP FORKLIFT OPERATOR): A initial well visit to establish [...] unless otherwise indicated. Need follow-up arranged with auto job estimator, senior site manager Planning on referral to hand painter Will need to check in to the tips follow-up Labs as ordered today, I will direct the A1 c to his senior site manager's office. Continuing the current regimen for now. Blood pressure is controlled at this time. We may need to try to get the stress test done as well. Screen for colon cancer 03/01/2021 Overview (03/01/2021): Added automatically from request for surgery [id number] Diabetic neuropathy associat ed with type 2 diabetes mellitus 10/29/2020 Assessment & Plan (10/29/2020 4:23 PM CDT): Chronic, worsening Start, gabapentin therapy Work on better diabetic control Vitamin D deficiency 10/29/2020 Assessment & Plan (10/29/2020 4:23 PM CDT): Check labs and based on that for the plans Bacterial endocarditis 05/14/2020 Assessment & Plan (05/14/2020 11:09 AM CLAMP FORKLIFT OPERATOR): Unfortunately the patient's records from [facility] are [...] 05/14/2020 Assessment & Plan (05/14/2020 11:11 AM CLAMP FORKLIFT OPERATOR): The patient's dyspnea on exertion is [...] resume home regimen and follow-up with home senior site manager MATHEUS pain 10/11/2017 Morbid obesity 12/09/2016 TRACY [...] Department Care Team Description 07/06/2024 Documentation [facility] [address] [place] [address] Advanced Medicine 12th [place] [address] [place] [address] Sean Rodas, BETHANY 07/05/2024 9:40 AM CLAMP FORKLIFT OPERATOR - 07/05/2024 11:59 PM CLAMP FORKLIFT OPERATOR Hospital Encounter [facility] ([facility]) [address] [place] [id number] Hepatic cirrhosis, unspecified hepatic cirrhosis type, unspecified whether ascites present (HCC) Discharge Disposition: Discharge to home or self care 07/05/2024 Results Follow-Up [facility] [address] [place] [address] Advanced Medicine [facility] [place] [address] [place] [address] Nilton Whatley MD 06/02/2024 8:55 AM CLAMP FORKLIFT OPERATOR Lab [facility] ([facility]) [address] [place] [id number] Hepatic cirrhosis, unspecified hepatic cirrhosis type, unspecified whether ascites present (HCC) 06/02/2024 8:00 AM CLAMP FORKLIFT OPERATOR Office Visit [facility] [address] [place] [address] Advanced Medicine 12th [place] [address] [place] [address] Nilton Whatley MD Hepatic cirrhosis, unspecified hepatic [...] on file Legal Sex Male 2:52 PM CLAMP FORKLIFT OPERATOR Gender Identity Male 10/29/2020 12:37 PM CDT Sexual Orientation Straight 10/29/2020 12 :37 PM CDT Obstetrics History Last Filed Vital Signs Vital Sign Reading Time Taken Comments Blood Pressure 117/76 06/02/2024 7:36 AM CLAMP FORKLIFT OPERATOR Pulse 88 06/02/2024 7:36 AM CLAMP FORKLIFT OPERATOR Temperature 36.7 C (98.1 F) 06/02/2024 7:36 AM CLAMP FORKLIFT OPERATOR Respiratory Rate 17 01/20/2024 12:0 0 PM CDT Oxygen Saturation 92% 06/02/2024 7:36 AM CLAMP FORKLIFT OPERATOR Inhaled Oxygen Concentration - - Weight 103.1 kg (227 lb 6.4 oz) 06/02/2024 7:36 AM CLAMP FORKLIFT OPERATOR Height 172.7 cm (5' 8 ) 11/23/2023 [...] Completed 08/23/2015 Medical Devices Implanted Type Area Preparation Room Manager Device Identifier Shelf Expiration Date Model / Serial / Lot [employer] Peripheral Vascular [id number] Lifestar 14mm 60mm 80cm Stent Biliary - [id number] Implanted:Qty: 1 on 01/10/2021 at [facility] [employer]ipheral [employer] 09/15/2023 [id number] / / [id number] Procedures Procedure Name Priority Date/Time Associated Diagnosis Comments US LIVER W COMPLETE DOPPLER Schedule Routine, Read Routine (OP Routine) 07/05/2024 11:25 AM CLAMP FORKLIFT OPERATOR Hepatic cirrhosis, unspecified hepatic cirrhosis type, unspecified whether ascites present (HCC) EGFR Routine 06/02/2024 8:48 AM CLAMP FORKLIFT OPERATOR Hepatic cirrhosis, unspecified hepatic cirrhosis type, unspecified whether ascites present (HCC) COMPREHENSIVE METABOLIC PANEL Routine 06/02/2024 8:48 AM CLAMP FORKLIFT OPERATOR Hepatic cirrhosis, unspecified hepatic cirrhosis type, unspecified whether ascites present (HCC) PROTIME-INR Routine 06/02/2024 8:48 AM CLAMP FORKLIFT OPERATOR Hepatic cirrhosis, unspecified hepatic cirrhosis type, unspecified whether ascites present (HCC) [id number], TUMOR MARKER Routine 06/02/2024 8:48 AM CLAMP FORKLIFT OPERATOR Hepatic cirrhosis, unspecified hepatic cirrhosis type, unspecified whether ascites present (HCC) BILIRUBIN, DIRECT Routine 06/02/2024 8:4 8 AM CLAMP FORKLIFT OPERATOR Hepatic cirrhosis, unspecified hepatic cirrhosis type, unspecified whether ascites present (HCC) HEMOGLOBIN A1C STAT 11/23/2023 8:40 AM CDT LIPID PANEL Routine 05/20/2021 9:36 AM CLAMP FORKLIFT OPERATOR Morbid obesity with body mass index (BMI) of 40.0 to 44.9 in adult (HCC) ALBUMIN CREATININE RATIO, URINE Routine 05/20/2021 9:36 AM CLAMP FORKLIFT OPERATOR Diabetic neuropathy associated with type 2 diabetes mellitus (HCC) COLONOSCOPY 12/17/2020 10:24 AM CDT SERUM HEPATITIS PANEL Routine 08/23/2015 5:23 PM CDT from Last 3 Months or Most Recently Relevant to Health Maintenance Results * US Liver W Complete Doppler (C) (07/05/2024 11:25 AM CLAMP FORKLIFT OPERATOR) Anatomical Region Laterality Modality Abdomen N/A Ultrasound 07/05/2024 11:3 7 AM CLAMP FORKLIFT OPERATOR Impressions 07/05/2024 11:57 AM CLAMP FORKLIFT OPERATOR 1. Sonographic features of cirrhosis. 2. US [...] Maurice Paul M.D. Narrative 07/05/2024 11:57 AM CLAMP FORKLIFT OPERATOR EXAMINATION: 1. LIVER SONOGRAM 2. LIVER DOPPLER [...] signed by: Maurice Paul M.D. us Nilton hWatley MD IMG US PROCEDURES Final Re sult * eGFR (06/02/2024 8:48 AM CLAMP FORKLIFT OPERATOR) eGFR >90 >=60 mL/min/1. 73 m2 Comment: [...] last reviewed 2021. Blood 06/02/2024 8:48 AM CLAMP FORKLIFT OPERATOR 06/02/2024 9:05 AM CLAMP FORKLIFT OPERATOR Nilton Whatley MD LAB BLOOD ORDERABLES Final Result Performing Organization Address City/State/[facility] [place] Phone Number [facility] Department [place] [address] * [id number], Tumor Marker (06/02/2024 8:48 AM CLAMP FORKLIFT OPERATOR) alpha Fetoprotein <2.0 <=8.3 ng/mL Comment: Interpretive [...] 2018;[id number]:[id number] Jeyson Sanches et al. Clin Chem 2014;1332-1868. Current interpretive data was last revised 2022. Blood 06/02/2024 8:48 AM CLAMP FORKLIFT OPERATOR 06/02/2024 9:00 AM CLAMP FORKLIFT OPERATOR us Nilton Whatley MD LAB BLOOD ORDERABLES Final Result [facility] Department [place] [address] * (ABNORMAL) Protime-INR (06/02/2024 8:48 AM CLAMP FORKLIFT OPERATOR) PT 13.5(H) 9.7 - 13.0 sec INR 1.24(H) 0.90 - 1.20 [facility] Comment: Interpretive data Oral anticoagulant therapeutic ranges: Venous thromboembolism prophylaxis or treatment: 2.0-3.0 CARDIOLOGY Standard range: 2.0-3.0 High-intensity range: 2.5-3.5 Refer to indication-specific guidelines for appropriate target ranges for prosthetic heart valve replacement. Current interpretive data was last revised on 2019. Blood 06/02/2024 8:48 AM CLAMP FORKLIFT OPERATOR 06/02/2024 9:00 AM CLAMP FORKLIFT OPERATOR us Nilton Whatley MD LAB BLOOD ORDERABLES Final Result Performing Organization Address City/[facility] Co de Phone Number [facility] Department [place] [address] * (ABNORMAL) Bilirubin, direct (06/02/2024 8:48 AM CLAMP FORKLIFT OPERATOR) Bilirubin, direct 0.6(H) 0.1 - 0.3 mg/dL Comment:Hemolyzed; result ma y be falsely decreased Blood 06/02/2024 8:48 AM CLAMP FORKLIFT OPERATOR 06/02/2024 9:00 AM CLAMP FORKLIFT OPERATOR us Nilton Whatley MD LAB BLOOD ORDERABLES Final Result Performing Organization Address City/[facility] Co de Phone Number [facility] Department [place] [address] * (ABNORMAL) Comprehensive metabolic panel (06/02/2024 8:48 AM CLAMP FORKLIFT OPERATOR) Sodium 141 135 - 145 mmol/L Potassium, pl 4.3 3.3 - 4.9 mmol/L [facility] Comment:Hemolyzed; Potassium value may be falsely elevated by as much as 0.3-0.5 mmol/L. Suggest redraw and reanalysis. Chloride 107 97 - 110 mmol/L [facility] CO2 27 22 - 32 mmol/L [facility] Anion gap 7 2 - 15 mmol/L [facility] BUN 13 6 - 25 mg/dL [facility] Creatinine 0.76(L) 0.80 - 1.30 mg/dL [facility] Glucose 242(H) 70 - 199 mg/dL [place] [...] 2022. Calcium 9.6 8.5 - 10.3 mg/dL [facility] Bilirubin, total 3.0(H) 0.1 - 1.2 mg/dL [facility] Protein, pl 6.9 6.5 - 8.5 g/dL [facility] Albumin 3.8 3.5 - 5.0 g/dL [facility] Alk phos 90 40 - 130 Units/L [facility] ALT 19 7 - 55 Units/L [facility] AST 38 10 - 50 Units/L [facility] Comment:Hemolyzed; result ma y be falsely elevated Blood 06/02/2024 8:48 AM CLAMP FORKLIFT OPERATOR 06/02/2024 9:00 AM CLAMP FORKLIFT OPERATOR Nilton Whatley MD LAB BLOOD ORDERABLES Final Result Performing Organization Address City/[facility] Co de Phone Number [facility]OH[facility]ER MICHELH [facility] Department [place] [address] * Albumin Creatinine Ratio, Urine (05/20/2021 9:36 AM CLAMP FORKLIFT OPERATOR) Albumin Ur <12.0 mg/L [facility] Comment: Interpretive Data No reference range established. Current interpretive data was last revised 2018. Creatinine Ur 47.6 mg/dL [facility] Comment: Interpretive Data No reference range established. Current interpretive data was last revised 2018. Albumin Creatinine Ratio, Ur <25 1 - 29 mg/g [facility] Urine 05/20/2021 9:36 AM CLAMP FORKLIFT OPERATOR 05/20/2021 7:41 PM CLAMP FORKLIFT OPERATOR Simon Lundberg MD LAB URINE ORDERABLES Final Result Performing Organization Address City/[facility] Co de Phone Number MOHINDER [address] [facility] Department [place] [address] * (ABNORMAL) Lipid panel (05/20/2021 9:36 AM CLAMP FORKLIFT OPERATOR) Cholesterol 110 30 - 199 mg/dL MOHINDER [...] 3 MOHINDER MICHELLE Blood 05/20/2021 9:36 AM CLAMP FORKLIFT OPERATOR 05/20/2021 7:41 PM CLAMP FORKLIFT OPERATOR Simon Lundberg MD LAB BLOOD ORDERABLES Final Result [facility] [address] [facility] Department [place] [address] * COLONOSCOPY (12/17/2020 10:24 AM CDT) Anatomical Region Laterality Modality Other Narrative Procedure Note Elian Gross MD - 12/17/2020 10:24 AM CDT ENDOSCOPY LAB Patient Name: Camilo Curry Procedure Date: 12/17/2020 10:24 AM Date of : 1970 Admit Type: Outpatient Age: 50 Gender: Male Attending MD: Elian Vivar M.D. Room: [facility] ENDOSCOPY ROOM 02 Note Status: [...] the physician, the nurse, the anesthesiologist, the diesel automotive technician and thetechnician in the pre-procedure area in [...] The scope was passed under direct vision.The [id number] was introduced through the anusand advanced to the hepatic flexure. The colonoscopywas performed without difficulty. The patient tolerated the procedure well. The quality of the bowel preparation was unsatisfactory. The quality of the bowel preparation was evaluated using the BBPS([place] Bowel Preparation Scale) with scores of: RightColon [...] 10:24 AM us Elian Draper MD ENDOSCOPY [place] OCEDURES Final Result * Serum Hepatitis panel (08/23/2015 5:23 PM CDT) HBV surface ag Negative NEG HISTO RICAL RESULTS HCV ab Negative NEG HISTORICAL RESULTS Comment: Interpretive Data If confirmation is required, call Laboratory Customer Service to request sample to be sent to [facility] for Hepatitis C Virus (HCV) RNA Detection and Quantitation by Real-Time Reverse Barrel Scraper-PCR (RT-PCR). Current interpretive data was last revised [...] Recently Relevant to Health Maintenance Insurance [employer] [facility] [employer] [facility] [employer] [facility] Advance Directives For more information, please contact: [phone] * Full Code (Latest Code Status on [...] 11:57 AM 02/03/2018 5:26 AM Care Teams Care Associate Relationship Specialty Start Date End Date Braydon Pavon PA [address] [place] [address] PCP - General 08/23/21 [place] [address] [address] [facility] [address], [place] [address] Consulting Physician Endocrinology 05/20/21 [place] [address] [address] [facility] [address] [place] [address] Consulting Physician Internal Medicine 05/20/21
--- OUTSIDE RECORDS SUMMARY | 2024-07-30 07:40 | XMS_ITS | Clinical Summary ---
Author Organization [facility] Address [address] Valenzuelan: Epic Prelude ADT [place] [address] Care Team Providers Care Client Hr Manager Name Role Phone Carlos Mcdonnell DO Primary Care Provider Unava ilable Allergies No known active allergies Medications No known medications Encounters Date Type Department Care Team Description 06/30/2024 8:59 PM CNC OPERATOR MACHINIST - 06/30/2024 11:11 PM CNC OPERATOR MACHINIST Emergency [facility] Department [address] [place] [address] Gerry Caal DO Encounter for [...] on file Legal Sex Male 6:23 AM CNC OPERATOR MACHINIST Gender Identity Not on file Sexual Orientation Not on file Last Filed Vital Signs Vital Sign Reading Time Taken Comments Blood Pressure 147/78 06/30/2024 10:10 PM CNC OPERATOR MACHINIST Pulse 89 06/30/2024 10:55 PM CNC OPERATOR MACHINIST Temperature 36.4 C (97.5 F) 06/30/2024 5:45 PM CNC OPERATOR MACHINIST Respiratory Rate 13 06/30/2024 10:55 PM CNC OPERATOR MACHINIST Oxygen Saturation 96% 06/30/2024 10:55 PM CNC OPERATOR MACHINIST Inhaled Oxygen Concentration - - Weight - [...] Diagnosis Comments LIPASE Stat 06/30/2024 9:40 PM CNC OPERATOR MACHINIST COMPREHENSIVE METABOLIC PANEL Stat 06/30/2024 9:40 PM CNC OPERATOR MACHINIST VERIFICATION BLOOD GROUP Stat 06/30/2024 9:39 PM CNC OPERATOR MACHINIST Encounter for blood typing PROTIME-INR Stat 06/30/2024 9:39 PM CNC OPERATOR MACHINIST EXTRA TUBE (BLUE) Stat 06/30/2024 9:3 9 PM CNC OPERATOR MACHINIST EXTRA TUBE Stat 06/30/2024 9:39 PM CNC OPERATOR MACHINIST TYPE AND SCREEN Stat 06/30/2024 6:10 PM CNC OPERATOR MACHINIST CBC WITH DIFFERENTIAL Stat 06/30/2024 6:10 PM CNC OPERATOR MACHINIST from Last 3 Months Results * LIPASE (06/30/2024 9:40 PM CNC OPERATOR MACHINIST) Pathologist [facility] LIPASE 17 13 - 60 U/L 06/30/2024 10:40 PM CNC OPERATOR MACHINIST [facility] Blood Venipuncture / Unknown 06/30/2024 9:40 PM CNC OPERATOR MACHINIST 06/30/2024 10:08 PM CNC OPERATOR MACHINIST Gerry Caal DO CHEMISTRY ORDERABLES Final Resu lt [facility] CLIA# [id number] [place] [address] * (ABNORMAL) COMPREHENSIVE METABOLIC PANEL (06/30/2024 9:40 PM CNC OPERATOR MACHINIST) Pathologist [facility] SODIUM 137 136 - 145 mmol/L 06/30/2024 10:47 PM [facility] POTASSIUM 4.0 3.4 - 5.1 mmol/L 06/30/2024 10:47 PM [facility] CHLORIDE 98 98 - 107 mmol/L 06/30/2024 10:47 PM [facility] CO2 25 22 - 29 mmol/L 06/30/2024 10:47 PM [facility] CALCIUM 9.8 8.6 - 10.4 mg/dL 06/30/2024 10:47 PM [facility] BUN 17 6 - 20 mg/dL 06/30/2024 10:47 PM [facility] CREATININE 0.78 0.67 - 1.17 mg/dL 06/30/2024 10:47 PM [facility] GLUCOSE 450(HH) 74 - 99 mg/dL 06/30/2024 10:47 PM [facility] TOTAL PROTEIN 7.0 6.3 - 8.7 g/dL 06/30/2024 10:47 PM [facility] ALBUMIN 3.8 3.5 - 5.2 g/dL 06/30/2024 10:47 PM [facility] BILIRUBIN TOTAL 4.0(H) 0.3 - 1.2 mg/dL 06/30/2024 10:47 PM [facility] ALKALINE PHOSPHATASE 94 40 - 150 U/L 06/30/2024 10:47 PM [facility] AST 24 0 - 41 U/L 06/30/2024 10:47 PM [facility] ALT 13 0 - 41 U/L 06/30/2024 10:47 PM [facility] GFR >60 >=60 mL/min/1.7 3 sq meter 06/30/2024 10:47 PM [facility] Comment:eGFR calculated with 2020 CKD-EPI equation. Vegetarian diet, extremely high or low muscle mass, and may affect results. Cystatin C with Glomerular Filtration Rate is a suitable alternative for these patients. ANION GAP 14 8 - 16 mmol/L 06/30/2024 10:47 PM [facility] Blood Venipuncture / Unknown 06/30/2024 9:40 PM CNC OPERATOR MACHINIST 06/30/2024 10:08 PM CNC OPERATOR MACHINIST Gerry Caal DO CHEMISTRY ORDERABLES Final Resu lt Performing Organization Address [facility]/ZIP Co de Phone Number [facility] CLIA# [id number] [place] [address] * EXTRA TUBE (BLUE) (06/30/2024 9:39 PM CNC OPERATOR MACHINIST) Blood Venipuncture / Unknown 06/30/2024 9:39 PM CNC OPERATOR MACHINIST 06/30/2024 10:57 PM CNC OPERATOR MACHINIST Gerry Caal DO HEMATOLOGY ORDERABLES Final Res ult [facility] CLIA# [id number] [place] [address] * VERIFICATION BLOOD GROUP (06/30/2024 9:39 PM CNC OPERATOR MACHINIST) ABO GROUP A 06/30/2024 11:11 PM CNC OPERATOR MACHINIST [facility] RH (D) TYPE Positive 06/30/2024 11:11 PM CNC OPERATOR MACHINIST [facility] Blood Venipuncture / Unknown 06/30/2024 9:39 PM CNC OPERATOR MACHINIST 06/30/2024 10:07 PM CNC OPERATOR MACHINIST Carlos Mcdonnell DO BLOOD BANK ORDERABLES Final Result [id number] [address] [place] [address] * (ABNORMAL) PROTIME-INR (06/30/2024 9:39 PM CNC OPERATOR MACHINIST) Pathologist [facility] PROTIME 15.0(H) 11.5 - 14.7 Seconds 06/30/2024 11:05 PM CNC OPERATOR MACHINIST [facility] INR 1.2(H) 0.9 - 1.1 06/30/2024 11:05 PM CNC OPERATOR MACHINIST [facility] Blood Venipuncture / Unknown 06/30/2024 9:39 PM CNC OPERATOR MACHINIST 06/30/2024 10:57 PM CNC OPERATOR MACHINIST Gerry Caal DO HEMATOLOGY ORDERABLES Final Res ult [facility] CLIA# [id number] [address] [place] [address] * (ABNORMAL) CBC WITH DIFFERENTIAL (06/30/2024 6:10 PM CNC OPERATOR MACHINIST) WBC 5.3 4.0 - 9.8 K/uL 06/30/2024 6:48 PM CNC OPERATOR MACHINIST [facility] [employer] [facility] RBC 5.86(H) 4.50 - 5.40 M/uL 06/30/2024 6:48 PM [facility] HEMOGLOBIN 16.8(H) 13.6 - 16.5 g/dL 06/30/2024 6:48 PM [facility] HEMATOCRIT 48.6(H) 40.0 - 48.0 % 06/30/2024 6:48 PM [facility] MCV 82.9 82.0 - 99.0 fL 06/30/2024 6:48 PM [facility] MCH 28.7 27.2 - 32.6 pg 06/30/2024 6:48 PM [facility] MCHC 34.6 31.5 - 35.5 g/dL 06/30/2024 6:48 PM [facility] RDW 16.9(H) 11.5 - 14.5 % 06/30/2024 6:48 PM [facility] RDW-STDEV 46.3 37.1 - 48.7 fL 06/30/2024 6:48 PM [facility] PLATELETS 78(L) 140 - 350 K/uL 06/30/2024 6:48 PM [facility] MPV 06/30/2024 6:48 PM [facility] Comment:Parameter not availa ble NEUTROPHILS 70 % 06/30/2024 6:48 PM [facility] LYMPHOCYTES 16 % 06/30/2024 6:48 PM [facility] MONOCYTES 9 % 06/30/2024 6:48 PM [facility] EOSINOPHILS 3 % 06/30/2024 6:48 PM [facility] BASOPHILS 1 % 06/30/2024 6:48 PM [facility] IMMATURE GRANULOCYTES 1 % 06/30/2024 6:48 PM [facility] Comment:IG (Immature Granulo cyte) count includes Metamyelocytes, Myelocytes, and Promyelocytes NEUTROPHIL ABSOLUTE 3.73 1.90 - 7.00 K/uL 06/30/2024 6:48 PM [facility] LYMPHOCYTE ABSOLUTE 0.86 0.70 - 4.50 K/uL 06/30/2024 6:48 PM CNC OPERATOR MACHINIST [facility] MONOCYTE ABSOLUTE 0.47 0.10 - 1.30 K/uL 06/30/2024 6:48 PM CNC OPERATOR MACHINIST [facility] EOSINOPHIL ABSOLUTE 0.18 0.00 - 0.70 K/uL 06/30/2024 6:48 PM CNC OPERATOR MACHINIST [facility] BASOPHILS ABSOLUTE 0.07 0.00 - 0.20 K/uL 06/30/2024 6:48 PM CNC OPERATOR MACHINIST [facility] IMMATURE GRANULOCYTES ABSOLUTE 0.03 0.00 - 0.03 K/uL 06/30/2024 6:48 PM CNC OPERATOR MACHINIST [facility] Blood Venipuncture / Unknown 06/30/2024 6:10 PM CNC OPERATOR MACHINIST 06/30/2024 6:40 PM CNC OPERATOR MACHINIST Gerry Caal DO HEMATOLOGY ORDERABLES Final Res ult [facility] CLIA# [id number] [place] [address] * TYPE AND SCREEN (06/30/2024 6:10 PM CNC OPERATOR MACHINIST) ABO GROUP A 06/30/2024 7:40 PM CNC OPERATOR MACHINIST [facility] RH (D) TYPE Positive 06/30/2024 7:40 PM CNC OPERATOR MACHINIST [facility] ANTIBODY SCREEN Negative 06/30/2024 7:40 PM CNC OPERATOR MACHINIST [facility] Blood Venipuncture / Unknown 06/30/2024 6:10 PM CNC OPERATOR MACHINIST 06/30/2024 6:31 PM CNC OPERATOR MACHINIST Gerry Caal DO BLOOD BANK ORDERABLES Edited Re sult - Final [facility] CLIA# [id number] [place] [address] from Last 3 Months Insurance [employer] Care Teams Client Hr Manager Relationship Specialty Start Date End Date Carlos Mcdonnell DO PCP - General 11/18/07
--- OUTSIDE RECORDS SUMMARY | 2024-07-30 07:40 | XMS_ITS | Encounter Summary ---
Author Organization [facility] Address [facility] [place] [address] Care Team Providers Care Circus Supervisor Name Role Phone Braydon Pavon Primary Care Provider [phone] Nikolay Lancaster MD Primary Care Provider [phone] Braydon Pavon Primary Care Provider [phone] Reason for Visit * Reason Onset Date Comments MEDICATION REFILL 09/08/2018 Encounter Details Date Type Department Care Team (Late st Contact Info) Description 09/08/2018 Refill [facility] [address] [facility] [place] [address] Edmond Choi MD [address] [facility] [address] [facility] [place] [address] MEDICATION REFILL Social History Tobacco Use Types [...] Under Investigation 06/08/2024 06/08/2024 06/08/2024 4:31 PM SURVEY STATISTICIAN Influenza A or B Comment:OSH result 06/08/2024 06/09/2024 06/15/2024 4:[address] documented as of this encounter Care Teams Circus Supervisor Relationship Specialty Start Date End Date Braydon Pavon PA [address] [place] [address] PCP - General Physician Biller 05/19/18 10/03/18 Nikolay Lancaster MD [address] [place] [address] PCP - General 10/04/18 07/13/23 Braydon Pavon PA [address] [place] [address] PCP - General Physician Biller 07/14/23 documented as of this encounter
--- OUTSIDE RECORDS SUMMARY | 2024-07-30 07:40 | XMS_ITS | Clinical Summary ---
Author Organization [facility] Address [address] [place] [address] Phone Care Team Providers Care General Operator Name Role Phone Librado Braydon NEAL Primary Care Provider [phone] Vikram Mora MD Unavailable Riddhi Bello APRN, REGISTERED HEALTH NURSE Unavailable Allergies Active Allergy Reactions Criticality Noted [...] as needed. 3 Active ergocalciferol (VITAMIN D) 76962 UNIT Capsule Take 50,000 Units by mouth. Active Insulin Pen Needle (B-D ULTRAFINE III SHORT PEN) 31G X 8 MM Misc 1 Active Insulin Pen Needle (B-D ULTRAFINE III SHORT PEN) 31G X 8 MM Misc 1 Each by Subcutaneous route. 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 Gender Identity Not on file Sexual [...] Visit [facility] [address] [place] [id number] Andrea Hawkins MD [address] [place] [address] Health Maintenance Due Date Last Done Comments [...] W/ ESTIMATED GLUCOSE STAT 05/20/2023 10:44 AM FURNACE ROOM SUPERVISOR from Last 3 Months or Most Recently Relevant to Health Maintenance Results * (ABNORMAL) CMP (Comprehensive Metabolic Panel) (11/13/2023 6:40 PM CDT) SODIUM 139 136 - 145 mmol/L 11/13/2023 7:25 PM CDT [facility] POTASSIUM 3.7 3.5 - 5.1 mmol/L 11/13/2023 7:25 PM CDT [facility] CHLORIDE 105 98 - 107 mmol/L 11/13/2023 7:25 PM CDT [facility] CO2, VENOUS 24 22 - 30 mmol/L 11/13/2023 7:25 PM CDT [facility] ANION GAP 13.7 <18.0 mmol/L 11/13/2023 7:25 PM CDT [facility] GLUCOSE 188(H) 70 - 99 mg/dL 11/13/2023 7:25 PM CDT [facility] BUN 11 8 - 26 mg/dL 11/13/2023 7:25 PM CDT [facility] CREATININE, BLOOD 0.84 0.70 - 1.30 mg/dL 11/13/2023 7:25 PM CDT [facility] BUN/CREATININE RATIO 13 12 - 20 ratio 11/13/2023 7:25 PM CDT [facility] TOTAL PROTEIN 7.3 6.3 - 8.2 g/dL 11/13/2023 7:25 PM CDT [facility] ALBUMIN 3.9 3.5 - 5.0 g/dL 11/13/2023 7:25 PM CDT [facility] A/G RATIO 1.1 1.0 - 2.2 11/13/2023 7:25 PM CDT [facility] CALCIUM 9.4 8.7 - 10.5 mg/dL 11/13/2023 7:25 PM CDT [facility] T BILI 3.6(H) 0.2 - 1.2 mg/dL 11/13/2023 7:25 PM CDT [facility] SGOT (AST) 27 5 - 34 U/L 11/13/2023 7:25 PM CDT [facility] SGPT (ALT) 17 0 - 55 U/L 11/13/2023 7:25 PM CDT [facility] ALKALINE PHOSPHATASE 90 40 - 150 U/L 11/13/2023 7:25 PM CDT [facility] GFR, ESTIMATED >60 >=60 11/13/2023 7:25 PM CDT [facility] Comment: Creatinine Clearance is the preferred criteria for selecting drug dose adjustments in renally impaired patients. The GFR is provided as additional pertinent clinical information. GFR is reported in mL/min/1.73 sq m. Calculation based on the Chronic Kidney Disease Epidemiology Collaboration (CKD- EPI) equation refit without adjustment for race. GFR, EST. >60 >=60 024 7:25 PM CDT [facility] GFR, EST. NONAFRICAN >60 >=60 11/13/2023 7:25 PM CDT [facility] Blood Venipuncture / Unknown 11/13/2023 6:40 PM CDT 11/13/2023 7:00 PM CDT us Lul Junior DO CHEMISTRY ORDERABLES Fi nal Result [facility] [address] [place] [address] * (ABNORMAL) Hemoglobin A1C (05/20/2023 10:44 AM FURNACE ROOM SUPERVISOR) HGB-A1C 11.6(H) 4.0 - 6.0 % 05/20/2023 12:30 PM FURNACE ROOM SUPERVISOR [facility] Est Average Glucose 286.2 mg/dL 05/20/2023 12:30 PM FURNACE ROOM SUPERVISOR [facility] Blood Venipuncture / Unknown 05/20/2023 10:44 AM FURNACE ROOM SUPERVISOR 05/20/2023 11:01 AM FURNACE ROOM SUPERVISOR Narrative [facility] - 05/20/2023 12:30 PM FURNACE ROOM SUPERVISOR HEMOGLOBIN A1C: DIABETIC PATIENTS: WELL-CONTROLLED: 6.2 - 7.0 INTERMEDIATE WELL-CONTROLLED: 7.0 - 9.0 POORLY-CONTROLLED: >9.0 Felicitas Luz APRN, REGISTERED HEALTH NURSE CHEMISTRY ORDERABLES Final Result Performing Organization Address City/[facility] Co de Phone Number [facility] [address] [place] [address] from Last 3 Months or Most Recently Relevant to Health Maintenance Insurance [facility] [address] [place] [address] Care Teams General Operator Relationship Specialty Start Date End Date Braydon Pavon, VAL [address] [place] [address] PCP - General Physician Employee Relations Assistant 06/22/18 Vikram Mora MD [address] [id number] Consulting Physician Endocrinology 05/21/23 Riddhi Bello APRN, REGISTERED HEALTH NURSE [address] [place] [address] Nurse Practitioner Advanced Practice Nurse 02/10/23
== END 2024-07-30 07:37 | disposition home or self-care (01) ==
LOC: CHSIMG 07:37
PROVIDERS: PCP Physician Assistant; Visit Provider Physician Assistant
DX: R26.0 Ataxic gait (principal)
CPT/HCPCS: 99199

== ENCOUNTER 2024-08-19 21:04 | Emergency (ER) | payer OTHER, SELFPAY ==
--- OUTSIDE RECORDS SUMMARY | 2024-08-19 21:07 | XMS_ITS | Encounter Summary ---
Author Organization [facility] Address [address] [place] [address] Care Team Providers Care Termite Helper Name Role Phone Braydon Pavon Primary Care Provider [phone] Nikolay Lancaster MD Unavailable [phone] Simon Lundberg MD Primary Care Provider [phone] Nacho Rodriguez MD Unavailable [phone] Elian Gross MD Unavailable Braydon Pavon Primary Care Provider [phone] Encounter Details Date Type Department Care Team (Late st Contact Info) Description 09/14/2020 Telephone [facility] [address] [place] [address] Trice Aldana, RT Social History Tobacco Use [...] on file 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 Gender Identity Male 10/29/2020 12:37 PM CDT Sexual Orientation Straight 10/29/2020 12 :37 PM CDT documented as of this encounter Plan of Treatment Not on file documented as of this encounter Visit Diagnoses Not on filedocumented in this encounter Care Teams Termite Helper Relationship Specialty Start Date End Date Braydon Pavon PA [address] [place] [address] PCP - General Family Practice 05/09/20 05/19/21 Simon Lundberg MD [address] [place] [address] PCP - General Family Medicine 05/20/21 08/22/21 Braydon Pavon PA [address] [place] [address] PCP - General 08/23/21 Nikolay Lancaster MD [address] [place] [address] 05/09/20 05/19/21 [place] [address] [address] [facility] [address] [address] Consulting Physician Endocrinology 05/20/21 [place] [address] [address] [facility] [address] [address] Consulting Physician Internal Medicine 05/20/21 documented as of this encounter
--- OUTSIDE RECORDS SUMMARY | 2024-08-19 21:07 | XMS_ITS | Encounter Summary ---
Author Organization [facility] Healthcare Address [address] [place] [address] Care Team Providers Care Regional Guide Name Role Phone Braydon Pavon Primary Care Provider [phone] Nkiolay Lancaster MD Unavailable [phone] Simon Lundberg MD Primary Care Provider [phone] Nacho Rodriguez MD Unavailable [phone] Elian Gross MD Unavailable Braydon Pavon Primary Care Provider [phone] Encounter Details Date Type Department Care Team (Late st Contact Info) Description 10/05/2020 Telephone [facility] Imaging [address] [place], [place] [id number] Trice Aldana, RT Social History Tobacco Use [...] file 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 Gender Identity Male 10/29/2020 12:37 PM CDT Sexual Orientation Straight 10/29/2020 12 :37 PM CDT documented as of this encounter Plan of Treatment Not on file documented as of this encounter Visit Diagnoses Not on filedocumented in this encounter Care Teams Regional Guide Relationship Specialty Start Date End Date Braydon Pavon PA [address] [place] [address] PCP - General Family Practice 05/09/20 05/19/21 Simon Lundberg MD [address] [place] [address] PCP - General Family Medicine 05/20/21 08/22/21 Braydon Pavon PA [address] [place] [address] PCP - General 08/23/21 Nikolay Lancaster MD [address] [place] [address] 05/09/20 05/19/21 [place] [address] [address] [facility] [address] [address] Consulting Physician Endocrinology 05/20/21 [place] [address] [address] [facility] [address] [address] Consulting Physician Internal Medicine 05/20/21 documented as of this encounter
--- OUTSIDE RECORDS SUMMARY | 2024-08-19 21:07 | XMS_ITS | Clinical Summary ---
Author Organization [facility] Address [address] [place] [address] Care Team Providers Care Window And Siding Craftsman Name Role Phone Braydon Pavon Primary Care Provider [phone] Allergies Active Allergy Reactions Criticality Noted Date [...] (two) times daily. Active vitamin D2, ergocalciferol, 87009 UNITS capsule Take 1 capsule (50,000 Units total) by mouth every 30 (thirty) days. Active Insulin Pen Needle (PEN NEEDLES) 32G X 4 MM Misc Inject 3 times daily 08/04/19 20 Active ONE TOUCH ULTRA TEST STRIPS test stripIndications:T ype 2 diabetes mellitus with hyperglycemia, with long-term current use of insulin ([facility]) Test 4 times daily 200 [...] long-term current use of insulin ([facility]) Inject 0.4 mLs (200 Units total) into the skin 3 (three) times daily before meals. 18 mL 11 02/19/20 24 Active Additional Information Patient taking differently:200 Units Subcutaneous 3 times daily before meals,Pt taking 200 units three times, Reported on 05/31/2024 Continuous Glucose Sensor (GuestShots G7 SENSOR) MiscIndications:Ty pe 2 diabetes mellitus with hyperglycemia, with long-term current use of insulin ([facility] HHS/HCC) CHANGE SENSOR EVERY 10 [...] long-term current use of insulin ([facility]/HCC) Take 1 tablet (500 mg total) by mouth daily with supper. 90 tablet 1 05/31/19 25 Active Active Problems Problem Noted Date Diagnosed Date Diabetic neuropathy associat ed with type 2 diabetes mellitus ([facility]) 10/29/2020 Lumbar degenerative disc disease 05/23/2019 Essential hypertension 07/21/2018 TRACY (obstructive sleep apnea) 09/14/2016 Thrombocytopenia 09/14/2016 Esophageal varices (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/ CC) 08/28/2015 Overview (04/05/2019): Last Assessment & Plan: c/b esophageal varices and HE. s/p TIPS in 2015. -RUQ today showing TIPS with slower velocity compared to 08/2017 but still patent, rec close FU. -rifaximin -holding lactulose for diarrhea -should have BB outpt Resolved Problems Problem Noted Date Diagnosed Date Resolved Date Bacterial endocarditis ([facility]) 05/14/2020 06/05/2024 BLAND (nonalcoholic steatohepatitis) 07/21/2018 04/05/2019 Diabetes mellitus, type 2 ([facility]) 02/02/2018 06/05/2024 Morbid obesity 12/09/2016 06/05/2024 History of upper gastrointestinal hemorrhage 6 04/05/2019 Encounters Date Type Department Care Team Description 05/31/2024 12:00 PM TRAIN CONTROL TECHNICIAN Office Visit [facility] Diabetes and Endocrinology - [address] [address] Eva Power MD Type 2 Diabetes 05/31/2024 Travel from Last 3 Months Family History [...] Comments Blood Pressure 134/77 05/31/2024 8:59 AM TRAIN CONTROL TECHNICIAN Pulse 84 05/31/2024 8:47 AM TRAIN CONTROL TECHNICIAN Temperature 36.8 C (98.3 F) 02/15/2024 1:54 PM CDT Respiratory Rate 11 01/23/2024 12:30 AM CDT Oxygen Saturation 96% 05/31/2024 8:47 AM TRAIN CONTROL TECHNICIAN Inhaled Oxygen Concentration - - Weight 100.2 kg (221 lb) 02/15/2024 1:54 PM CDT Height 172.7 cm (5' 8 ) 05/31/2024 8:47 AM TRAIN CONTROL TECHNICIAN Body Mass Index 33.6 02/15/2024 1:54 PM CDT Plan of Treatment Upcoming Encounters Date Type Department Care Team (Late st Contact Info) Description 08/30/2024 12:00 PM CDT Office Visit [facility] Diabetes and Endocrinology - [address] [address] Eva Power MD [address] [place] [address] Health Maintenance Due Date Last Done Comments Colorectal Cancer Screening Colonoscopy (10 Years) 1970 Lipid Panel 1970 Annual Physical 1973 Pneumococcal Vaccine: Pediatrics (0 to 5 Years) and At-Risk Patients (6 to 49 Years) (1 of 2 - PCV) 1976 Diabetes: Retinopathy Eye Exam 1988 DTaP, Tdap and Td Vaccines (1 - Tdap) 1989 Hepatitis B Vaccines (3 of 3 - 19+ 3-dose series) 03/12/2016 11/09/2015, 09/10/2015 Zoster Vaccines (1 of 2) 2020 COVID-19 Vaccine ( season) 2024 12/29/2020, 12/08/2020 PHQ-2 (Physician [place]) 05/04/2024 02/15/2024 Hemoglobin A1C 08/29/2024 05/31/2024, 11/02, [...] this topic Medical Devices Implanted Type Area Rail Gang Supervisor Device Identifier Shelf Expiration Date Model / Serial / Lot [employer] Stent-01/02/2021 Implanted: 021 (Quantity not on file) Stent Abdomen [employer] R [employer] [id number] / / Description:Non-clinical silvia ting demonstrated that [...] field of 720 Gauss/cm or less Maximum rzqle-tmyy-wyurasqh specific absorption rate (IVANA) of 2-W/kg for 15 minutes of scanning for patient landmarks above the umbilicus. Maximum WB-IVANA of 1 W/kg for 15 min. of scanning for patient landmarks below the umbilicus. Procedures Procedure Name Priority Date/Time Associated Diagnosis Comments ALBUMIN URINE RANDOM W/CREATININE Routine 05/31/2024 10:36 AM TRAIN CONTROL TECHNICIAN Type 2 diabetes mellitus with hyperglycemia, with long-term current use of insulin ([facility]) COLLECT.CAPILLARY (FNGR,HEEL,EAR) Routine 05/31/2024 8:47 AM TRAIN CONTROL TECHNICIAN Type 2 diabetes mellitus with hyperglycemia, with long-term current use of insulin ([facility]) GLUCOSE BLOOD, MONITOR DEVICE Routine 05/31/2024 Type 2 diabetes mellitus with hyperglycemia, with long-term current use of insulin ([facility]) HEMOGLOBIN, GLYCOSYLATED Routine 05/31/2024 Type 2 diabetes mellitus with hyperglycemia, with long-term current use of insulin ([facility]) from Last 3 Months Results * ALBUMIN/CREATININE RATIO, RANDOM URINE (05/31/2024 10:36 AM TRAIN CONTROL TECHNICIAN) Pathologist [facility] MICROALBUMIN (U) 10.4 <20 MG/L 05/31/19 7:37 PM TRAIN CONTROL TECHNICIAN [facility] CREATININE RANDOM (U) 47.4 MG/DL 05/31/2024 7:37 PM TRAIN CONTROL TECHNICIAN [facility] ALBUMIN/CREAT RATIO 21.9 <30 MG/G 05/31/2024 7:37 PM TRAIN CONTROL TECHNICIAN [facility] URINE SPECIMEN / Unknown 05/31/2024 10:36 AM TRAIN CONTROL TECHNICIAN Eva Power MD URINE ORDERABLES Final Result [facility] [address] [place] [address], [place] [phone] * HEMOGLOBIN, GLYCOSYLATED (05/31/2024) [facility] HGB A1C 10.3 % [address] [facility] 05/31/2024 Eva Power MD LABORATORY Final Result [address] [address] [place] [address], [place] [phone] * (ABNORMAL) GLUCOSE BLOOD, MONITOR DEVICE (05/31/2024) Pathologist [facility] GLUCOSE WHOLE BLOOD 323(A) 70 - 100 mg/dL [address] [place] 05/31/2024 us Eva Power MD LABORATORY Final Result [facility], [address] [place] [address], [place] [phone] from Last 3 Months Insurance AET Care Teams Window And Siding Craftsman Relationship Specialty Start Date End Date Braydon Pavon PA [address] [place] [address] PCP - General PHYSICIAN BUSINESS ETHICS PROFESSOR 03/02/19
--- OUTSIDE RECORDS SUMMARY | 2024-08-19 21:07 | XMS_ITS | Data Portability ---
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 Plan of Treatment Reminders Order Date Submit Date Provider Last Modified By Organization Details Last Modified Time Details Appointments None recorded. Lab urinalysis , dipstick 2023 024 [facility] In-Office Order, Internal Use Only DO Not Attach Compendium DO Not Attach Compendium, Do Not Delete/merge, [id number] 10:17:29 Referral neurologis t [facility]24 [facility], [address], [address], 5 11:39:23 Procedures None recorded. Surgeries None recorded. Imaging MRI, brain, w/o contrast 2024 025 [facility], [address] [place], [address], 5 14:49:26 MRI, lumbar spine, w/o contrast 2023 024 [facility], [address] [place], [address], 4 07:55:02 Medication Orders None recorded. Patient TargetsNo targets recorded. Patient Instructions Encounter Date Encounter Id Patient Instructions Last Modified By Organization Details Last Modified Time 03/03/2024 [id number] A healthy lifestyle: care instructions jnanney Not available 03/03/2024 11:27:32 03/08/2024 [id number] A healthy lifestyle: care instructions jnanney Not available 03/08/2024 15:26:42 type 2 diabetes: care instructions jnanney Not available 03/08/2024 15:26:42 03/23/2024 [id number] A healthy lifestyle: care instructions jnanney Not available 03/23/2024 11:17:48 type 2 diabetes: care instructions jnanney Not available 03/23/2024 11:17:48 04/06/2024 [id number] painful urinatio n (dysuria): care instructions jnanney Not available 04/06/2024 10:11:20 When You Want to Lose Weight: Care Instructions jnanney Not available 04/06/2024 10:27:46 type 2 diabetes: care instructions jnanney Not available 04/06/2024 10:27:46 06/28/2024 [id number] coughing up blood: care instructions jnanney Not [...] DO Not Attach Compendium, Do Not Delete/merge, [id number] 04/06/2024 10:08:18 04/06/20 24 04/06/2024 urina lysis , dipst ick Nitrite negati ve Not Available In-Office Order Internal Use Only DO Not Attach Compendium DO Not Attach Compendium, Do Not Delete/merge, [id number] 04/06/2024 10:08:18 04/06/20 24 04/06/2024 urina lysis , dipst ick Urobilinogen .2 Not Available In-Of fice Order Internal Use Only DO Not Attach Compendium DO Not Attach Compendium, Do Not Delete/merge, [id number] 04/06/2024 10:08:18 04/06/20 24 04/06/2024 urina lysis , dipst ick Protein Negati ve Not Available In-Office Order Internal Use Only DO Not Attach Compendium DO Not Attach Compendium, Do Not Delete/merge, [id number] 04/06/2024 10:08:18 04/06/20 24 04/06/2024 urina lysis , dipst ick pH 6.0 Not Available In-Office Order Internal Use Only DO Not Attach Compendium DO Not Attach Compendium, Do Not Delete/merge, [id number] 04/06/2024 10:08:18 04/06/20 24 04/06/2024 urina lysis , dipst ick Blood Negati ve Not Available In-Office Order Internal Use Only DO Not Attach Compendium DO Not Attach Compendium, Do Not Delete/merge, [id number] 04/06/2024 10:08:18 04/06/20 24 04/06/2024 urina lysis , dipst ick Specific [place] 1.015 Not Available In-Off ice Order Internal Use Only DO Not Attach Compendium DO Not Attach Compendium, Do Not Delete/merge, [id number] 04/06/2024 10:08:18 04/06/20 24 04/06/2024 urina lysis , dipst ick Ketone Trace Not Available In-Office Order Internal Use Only DO Not Attach Compendium DO Not Attach Compendium, Do Not Delete/merge, [id number] 04/06/2024 10:08:18 04/06/20 24 04/06/2024 urina lysis , dipst ick Bilirubin Negati ve Not Available In-Office Order Internal Use Only DO Not Attach Compendium DO Not Attach Compendium, Do Not Delete/merge, [id number] 04/06/2024 10:08:18 04/06/20 24 04/06/2024 urina lysis , dipst ick Glucose 1000 Not Available In-Office Order Internal Use Only DO Not Attach Compendium DO Not Attach Compendium, Do Not Delete/merge, [id number] 04/06/2024 10:08:18 04/06/20 24 04/06/2024 urina lysis , dipst ick Appearance Clear Not Available In-Offi ce Order Internal Use Only DO Not Attach Compendium DO Not Attach Compendium, Do Not Delete/merge, [id number] 04/06/2024 10:08:18 04/06/20 24 04/06/2024 urina lysis , dipst ick Color Yellow Not Available In-Office Order Internal Use Only DO Not Attach Compendium DO Not Attach Compendium, Do Not Delete/merge, [id number] 04/06/2024 10:08:18 06/08/19 25 06/09/2024 Gluco se [Mass /volu me] in Arter ial blood glucose [mass/volume ] in capillary blood by glucometer 241 mg/dL low: 70mg/d Lhigh: 99mg/d L high Gluco se WB/PO C 241 (H) 70 - 99 mg/dL 06/09 8:24 AM PHOTOGRAPHER LITHOGRAPHIC [facility] Not Available Not Available 06/28/2024 17:40:48 06/08/1906/09/2024 Gluco se [Mass /volu me] in Arter ial blood specimen source identified Cap Finger stick Speci men Type Cap Finge rstic k 06/09 8:24 AM PHOTOGRAPHER LITHOGRAPHIC [facility] Not Available Not Available [...] 1.6 - 2.6 mg/dL 06/08 5:17 PM PHOTOGRAPHER LITHOGRAPHIC [facility] Not Available Not Available [...] 70 - 99 mg/dL 06/08 5:17 PM PHOTOGRAPHER LITHOGRAPHIC [facility] Not Available Not Available 06/28/2024 17:40:48 06/08/1906/08/2024 Compr ehens chetna metab olic 1999 panel - Serum or Plasm a sodium [moles/volum e] in serum or plasma 135 mmol/ L low: 136mmo l/Lhig h: 145mmo l/L low Sodiu m 135 (L) 136 - 145 mmol/ L 06/08 5:17 PM PHOTOGRAPHER LITHOGRAPHIC [facility] Not Available Not Available 06/28/2024 17:40:48 06/08/1906/08/2024 Compr ehens chetna metab olic 1999 panel - Serum or Plasm a potassium [moles/volum e] in serum or plasma 3.9 mmol/ L low: 3.5mmo l/Lhig h: 5.1mmo l/L Potas sium 3.9 3.5 - 5.1 mmol/ L 06/08 5:17 PM PHOTOGRAPHER LITHOGRAPHIC [facility] Not Available Not Available 06/28/2024 17:40:48 06/08/19 25 06/08/2024 Compr ehens chetna metab olic 1999 panel - Serum or Plasm a chloride [moles/volum e] in serum or plasma 104 mmol/ L low: 98mmol /Lhigh : 107mmo l/L Chlor james 104 98 - 107 mmol/ L 06/08 5:17 PM PHOTOGRAPHER LITHOGRAPHIC [facility] Not Available Not Available 06/28/2024 17:40:48 06/08/19 25 06/08/2024 Compr ehens chetna metab olic 1999 panel - Serum or Plasm a carbon dioxide, total [moles/volum e] in serum or plasma 24 mmol/ L low: 22mmol /Lhigh : 29mmol /L CO2 24 22 - 29 mmol/ L 06/08 5:17 PM PHOTOGRAPHER LITHOGRAPHIC [facility] Not Available Not Available 06/28/2024 17:40:48 06/08/19 25 06/08/2024 Compr ehens chetna metab olic 1999 panel - Serum or Plasm a calcium [mass/volume ] in serum or plasma 8.1 mg/dL low: 8.4mg/ dLhigh : 10.4mg /dL low Calci um 8.1 (L) 8.4 - 10.4 mg/dL 06/08 5:17 PM PHOTOGRAPHER LITHOGRAPHIC [facility] Not Available Not Available 06/28/2024 17:40:48 06/08/19 25 06/08/2024 Compr ehens chetna metab olic 1999 panel - Serum or Plasm a anion gap in blood 7 mmol/ L low: 6mmol/ Lhigh: 16mmol /L Anion Gap 7 6 - 16 mmol/ L 06/08 5:17 PM PHOTOGRAPHER LITHOGRAPHIC [facility] Not Available Not Available 06/28/2024 17:40:48 06/08/19 25 06/08/2024 Compr ens chetna metab olic 1999 panel - Serum or Plasm a urea nitrogen [mass/volume ] in serum or plasma 16 mg/dL low: 7mg/dL high: 26mg/d L BUN 16 7 - 26 mg/dL 06/08 5:17 PM PHOTOGRAPHER LITHOGRAPHIC [facility] Not Available Not Available 06/28/2024 17:40:48 06/08/19 25 06/08/2024 Compr qLearningens chetna metab olic 1999 panel - Serum or Plasm a creatinine [mass/volume ] in serum or plasma 0.88 mg/dL low: 0.72mg /dLhig h: 1.25mg /dL Creat inine 0.88 0.72 - 1.25 mg/dL 06/08 5:17 PM PHOTOGRAPHER LITHOGRAPHIC [facility] Not Available Not Available 06/28/2024 17:40:48 06/08/19 25 06/08/2024 Compr ehens chetna metab olic 2000 panel - Serum or Plasm a alkaline phosphatase [enzymatic activity/vol ume] in serum or plasma 71 U/L low: 40U/Lh igh: 150U/L Alkal ine Phosp hatas e 71 40 - 150 U/L 06/08 5:17 PM PHOTOGRAPHER LITHOGRAPHIC [facility] Not Available Not Available 06/28/2024 17:40:48 06/08/1906/08/2024 Compr ehens chetna metab olic 2000 panel - Serum or Plasm a alanine aminotransfe rase [enzymatic activity/vol ume] in serum or plasma 13 U/L low: 0U/Lhi gh: 55U/L ALT 13 0 - 55 U/L 06/08 5:17 PM PHOTOGRAPHER LITHOGRAPHIC [facility] Not Available Not Available 06/28/2024 17:40:48 06/08/19 25 06/08/2024 Compr ehens chetna metab olic 2000 panel - Serum or Plasm a aspartate aminotransfe rase [enzymatic activity/vol ume] in serum or plasma 20 U/L low: 5U/Lhi gh: 34U/L AST 20 5 - 34 U/L 06/08 5:17 PM PHOTOGRAPHER LITHOGRAPHIC [facility] Not Available Not Available 06/28/2024 17:40:48 06/08/19 25 06/08/2024 Compr qLearningens chetna metab olic 1999 panel - Serum or Plasm a protein [mass/volume ] in serum or plasma 5.7 text: 6.4 - 8.3 gm/dL low Prote in Total 5.7 (L) 6.4 - 8.3 gm/dL 06/08 5:17 PM PHOTOGRAPHER LITHOGRAPHIC [facility] Not Available Not Available 06/28/2024 17:40:48 06/08/19 25 06/08/2024 Compr qLearningens chetna metab olic 2000 panel - Serum or Plasm a albumin [mass/volume ] in serum or plasma 2.9 text: 3.4 - 5.0 gm/dL low Album in 2.9 (L) 3.4 - 5.0 gm/dL 06/08 5:17 PM PHOTOGRAPHER LITHOGRAPHIC [facility] Not Available Not Available 06/28/2024 17:40:48 06/08/19 25 06/08/2024 Compr qLearningens chetna metab olic 2000 panel - Serum or Plasm a bilirubin.to kathi [mass/volume ] in serum or plasma 3 mg/dL low: 0.2mg/ dLhigh : 1.2mg/ dL high Bilir ubin Total 3.0 (H) 0.2 - 1.2 mg/dL 06/08 5:17 PM PHOTOGRAPHER LITHOGRAPHIC [facility] Not Available Not Available 06/28/2024 17:40:48 06/08/1906/08/2024 Compr ehens chetna metab olic 2000 panel - Serum or Plasm a glomerular filtration rate/1.73 sq M.predicted [volume rate/area] in serum, plasma or blood by creatinine-b ased formula (CKD-epi 2020) text: >=90 mL/min /1.73 m2 eGFR by CKD-E PI >90 >=90 mL/mi n/1.7 3 m2 06/08 5:17 PM PHOTOGRAPHER LITHOGRAPHIC [facility] Not Available Not Available 06/28/2024 [...] - 10.7 x10E9 /L 06/08 5:12 PM PHOTOGRAPHER LITHOGRAPHIC [facility] Not Available Not Available 06/28/2024 17:40:43 06/08/1906/08/2024 CBC W Auto Diffe renti al panel - Blood erythrocytes [#/volume] in blood by automated count 5.01 text: 4.30 - 5.80 x10e12 /L RBC Count 5.01 4.30 - 5.80 x10E1 2/L 06/08 5:12 PM PHOTOGRAPHER LITHOGRAPHIC [facility] Not Available Not Available 06/28/2024 17:40:43 06/08/1906/08/2024 CBC W Auto Diffe renti al panel - Blood hemoglobin [mass/volume ] in blood 14.8 g/dL low: 13.3g/ dLhigh : 17.5g/ dL Hemog lobin 14.8 13.3 - 17.5 g/dL 06/08 5:12 PM PHOTOGRAPHER LITHOGRAPHIC [facility] Not Available Not Available 06/28/2024 17:40:43 06/08/1906/08/2024 CBC W Auto Diffe renti al panel - Blood hematocrit [volume fraction] of blood by automated count 42.1 % low: 38.7%h igh: 51.1% Hemat ocrit 42.1 38.7 - 51.1 % 06/08 5:12 PM PHOTOGRAPHER LITHOGRAPHIC [facility] Not Available Not Available 06/28/2024 17:40:43 06/08/1906/08/2024 CBC W Auto Diffe easton al panel - Blood MCV [entitic volume] by automated count 84 fL low: 80fLhi gh: 98fL MCV 84.0 80.0 - 98.0 fL 06/08 5:12 PM PHOTOGRAPHER LITHOGRAPHIC [facility] Not Available Not Available 06/28/2024 17:40:43 06/08/1906/08/2024 CBC W Auto Diffe easton al panel - Blood MCH [entitic mass] by automated count 29.5 pg low: 26.7pg high: 33.6pg MCH 29.5 26.7 - 33.6 pg 06/08 5:12 PM PHOTOGRAPHER LITHOGRAPHIC [facility] Not Available Not Available 06/28/2024 17:40:43 06/08/1906/08/2024 CBC W Auto Diffe easton villegas panel - Blood MCHC [mass/volume ] by automated count 35.2 g/dL low: 31.7g/ dLhigh : 36.3g/ dL MCHC 35.2 31.7 - 36.3 g/dL 06/08 5:12 PM PHOTOGRAPHER L[facility]OGRAPHIC [facility] Not Available Not Available 06/28/2024 17:40:43 06/08/1906/08/2024 CBC W Auto Diffe easton al panel - Blood erythrocyte distribution width [ratio] by automated count 15.9 % low: 11.3%h igh: 14.8% high RDW-C V 15.9 (H) 11.3 - 14.8 % 06/08 5:12 PM PHOTOGRAPHER LITHOGRAPHIC [facility] Not Available Not Available 06/28/2024 17:40:43 06/08/1906/08/2024 CBC W Auto Diffe renti al panel - Blood platelets [#/volume] in blood by automated count 67 text: 150 - 420 x10e9/ L low Plate let Count 67 (L) 150 - 420 x10E9 /L 06/08 5:12 PM PHOTOGRAPHER LITHOGRAPHIC [facility] Not Available Not Available 06/28/2024 17:40:43 06/08/1906/08/2024 CBC W Auto Diffe renti al panel - Blood platelet mean volume [entitic volume] in blood by automated count 10.4 fL low: 7.8fLh igh: 11.4fL MPV 10.4 7.8 - 11.4 fL 06/08 5:12 PM PHOTOGRAPHER LITHOGRAPHIC [facility] Not Available Not Available 06/28/2024 17:40:43 06/08/1906/08/2024 CBC W Auto Diffe renti al panel - Blood neutrophils/ 100 leukocytes in blood by automated count 67.5 % low: 41%hig h: 74% Neutr ophil % 67.5 41.0 - 74.0 % 06/08 5:12 PM PHOTOGRAPHER LITHOGRAPHIC [facility] Not Available Not Available 06/28/2024 17:40:43 06/08/1906/08/2024 CBC W Auto Diffe renti al panel - Blood lymphocytes/ 100 leukocytes in blood by automated count 15.4 % low: 17%hig h: 47% low Lymph ocyte % 15.4 (L) 17.0 - 47.0 % 06/08 5:12 PM PHOTOGRAPHER LITHOGRAPHIC [facility] Not Available Not Available 06/28/2024 17:40:43 06/08/1906/08/2024 CBC W Auto Diffe renti al panel - Blood monocytes/10 0 leukocytes in blood by automated count 15.9 % low: 3%high : 11% high Monoc yte % 15.9 (H) 3.0 - 11.0 % 06/08 5:12 PM PHOTOGRAPHER LITHOGRAPHIC [facility] Not Available Not Available 06/28/2024 17:40:43 06/08/19 25 06/08/2024 CBC W Auto Diffe renti al panel - Blood eosinophils/ 100 leukocytes in blood by automated count 0 % low: 0%high : 7% Eosin ophil % 0.0 0.0 - 7.0 % 06/08 5:12 PM PHOTOGRAPHER LITHOGRAPHIC [facility] Not Available Not Available 06/28/2024 17:40:43 06/08/1906/08/2024 CBC W Auto Diffe renti al panel - Blood basophils/10 0 leukocytes in blood by automated count 0.7 % low: 0%high : 1.6% Basop hil % 0.7 0.0 - 1.6 % 06/08 5:12 PM PHOTOGRAPHER L[facility]OGRAPHIC [facility] Not Available Not Available 06/28/2024 17:40:43 06/08/1906/08/2024 CBC W Auto Diffe renti al panel - Blood immature granulocytes /100 leukocytes in blood by automated count 0.5 % low: 0%high : 1% Immat ure Granu locyt es % 0.5 0.0 - 1.0 % 06/08 5:12 PM PHOTOGRAPHER L[facility]OGRAPHIC [facility] Not Available Not Available 06/28/2024 17:40:43 06/08/1906/08/2024 CBC W Auto Diffe renti al panel - Blood neutrophils [#/volume] in blood by automated count 2.8 text: 1.60 - 7.50 x10e9/ L Neutr ophil Absol [place] 2.80 1.60 - 7.50 x10E9 /L 06/08 5:12 PM PHOTOGRAPHER LITHOGRAPHIC [facility] Not Available Not Available 06/28/2024 17:40:43 06/08/1906/08/2024 CBC W Auto Diffe renti al panel - Blood lymphocytes [#/volume] in blood by automated count 0.64 text: 1.00 - 4.40 x10e9/ L low Lymph ocyte Absol [place] 0.64 (L) 1.00 - 4.40 x10E9 /L 06/08 5:12 PM PHOTOGRAPHER LITHOGRAPHIC [facility] Not Available Not Available 06/28/2024 17:40:43 06/08/19 25 06/08/2024 CBC W Auto Diffe renti al panel - Blood monocytes [#/volume] in blood by automated count 0.66 text: 0.15 - 1.00 x10e9/ L Monoc yte Absol [place] 0.66 0.15 - 1.00 x10E9 /L 06/08 5:12 PM PHOTOGRAPHER LITHOGRAPHIC [facility] Not Available Not Available 06/28/2024 17:40:43 06/08/19 25 06/08/2024 CBC W Auto Diffe renti al panel - Blood eosinophils [#/volume] in blood 0 text: 0.00 - 0.60 x10e9/ L Eosin ophil Absol [place] 0.00 0.00 - 0.60 x10E9 /L 06/08 5:12 PM PHOTOGRAPHER LITHOGRAPHIC [facility] Not Available Not Available 06/28/2024 17:40:43 06/08/1906/08/2024 CBC W Auto Diffe renti al panel - Blood basophils [#/volume] in blood by automated count 0.03 text: 0.00 - 0.13 x10e9/ L Basop hil Absol [place] 0.03 0.00 - 0.13 x10E9 /L 06/08 5:12 PM PHOTOGRAPHER LITHOGRAPHIC [facility] Not Available Not Available [...] 345 (H) <=100 pg/mL 06/08 5:19 PM PHOTOGRAPHER LITHOGRAPHIC [facility] Not Available Not Available [...] 70 - 99 mg/dL 06/09 8:23 AM PHOTOGRAPHER LITHOGRAPHIC [facility] Not Available Not Available 06/28/2024 17:40:48 06/08/19 25 06/09/2024 Gluco se [Mass /volu me] in Arter ial blood specimen source identified Cap Finger stick Speci men Type Vincent De Paz rstic k 06/09 8:23 AM PHOTOGRAPHER LITHOGRAPHIC [facility] Not Available Not Available 06/28/2024 [...] 70 - 99 mg/dL 06/09 9:47 PM PHOTOGRAPHER LITHOGRAPHIC [facility] Not Available Not Available 06/28/2024 17:40:48 06/09/19 25 06/09/2024 Gluco se [Mass /volu me] in Arter ial blood specimen source identified Cap Finger stick Speci men Type Vincent De Paz rstic k 06/09 9:47 PM PHOTOGRAPHER LITHOGRAPHIC [facility] Not Available Not Available 06/28/2024 [...] 70 - 99 mg/dL 06/09 5:57 PM PHOTOGRAPHER L[facility]OGRAPHIC [facility] Not Available Not Available 06/28/2024 17:40:48 06/09/19 25 06/09/2024 Gluco se [Mass /volu me] in Arter ial blood specimen source identified Cap Finger stick Speci men Type Cap Lanie rstic k 06/09 5:57 PM PHOTOGRAPHER LITHOGRAPHIC [facility] Not Available Not Available [...] 70 - 99 mg/dL 06/09 1:54 PM PHOTOGRAPHER L[facility]OGRAPHIC [facility] Not Available Not Available 06/28/2024 17:40:48 06/09/19 25 06/09/2024 Gluco se [Mass /volu me] in Arter ial blood specimen source identified Cap Finger stick Speci men Type Cap Zandra rstic k 06/09 1:54 PM PHOTOGRAPHER LITHOGRAPHIC [facility] Not Available Not Available [...] 70 - 99 mg/dL 06/09 8:24 AM PHOTOGRAPHER L[facility]OGRAPHIC [facility] Not Available Not Available 06/28/2024 17:40:48 06/09/19 25 06/09/2024 Gluco se [Mass /volu me] in Arter ial blood specimen source identified Cap Finger stick Speci men Type Cap Zandra rstic k 06/09 8:24 AM PHOTOGRAPHER LITHOGRAPHIC [facility] Not Available Not Available [...] 70 - 99 mg/dL 06/09 8:24 AM PHOTOGRAPHER L[facility]OGRAPHIC [facility] Not Available Not Available 06/28/2024 17:40:48 06/09/19 25 06/09/2024 Gluco se [Mass /volu me] in Arter ial blood specimen source identified Cap Finger stick Speci men Type Cap Lanie rstic k 06/09 8:24 AM PHOTOGRAPHER LITHOGRAPHIC [facility] Not Available Not Available [...] - 10.7 x10E9 /L 06/09 2:37 AM PHOTOGRAPHER LITHOGRAPHIC [facility] Not Available Not Available 06/28/2024 17:40:48 06/09/19 25 06/09/2024 CBC panel - Blood by Autom ated count erythrocytes [#/volume] in blood by automated count 4.95 text: 4.30 - 5.80 x10e12 /L RBC Count 4.95 4.30 - 5.80 x10E1 2/L 06/09 2:37 AM [facility] Not Available Not Available 06/28/2024 17:40:48 06/09/1906/09/2024 CBC panel - Blood by Autom ated count hemoglobin [mass/volume ] in blood 14.8 g/dL low: 13.3g/ dLhigh : 17.5g/ dL Hemog lobin 14.8 13.3 - 17.5 g/dL 06/09 2:37 AM PHOTOGRAPHER LITHOGRAPHIC [facility] Not Available Not Available 06/28/2024 17:40:48 06/09/1906/09/2024 CBC panel - Blood by Autom ated count hematocrit [volume fraction] of blood by automated count 42 % low: 38.7%h igh: 51.1% Hemat ocrit 42.0 38.7 - 51.1 % 06/09 2:37 AM [facility] Not Available Not Available 06/28/2024 17:40:48 06/09/1906/09/2024 CBC panel - Blood by Autom ated count MCV [entitic volume] by automated count 84.8 fL low: 80fLhi gh: 98fL MCV 84.8 80.0 - 98.0 fL 06/09 2:37 AM [facility] Not Available Not Available 06/28/2024 17:40:48 06/09/1906/09/2024 CBC panel - Blood by Autom ated count MCH [entitic mass] by automated count 29.9 pg low: 26.7pg high: 33.6pg MCH 29.9 26.7 - 33.6 pg 06/09 2:37 AM [facility] Not Available Not Available 06/28/2024 17:40:48 06/09/1906/09/2024 CBC panel - Blood by Autom ated count MCHC [mass/volume ] by automated count 35.2 g/dL low: 31.7g/ dLhigh : 36.3g/ dL MCHC 35.2 31.7 - 36.3 g/dL 06/09 2:37 AM PHOTOGRAPHER LITHOGRAPHIC [facility] Not Available Not Available 06/28/2024 17:40:48 06/09/1906/09/2024 CBC panel - Blood by Autom ated count erythrocyte distribution width [ratio] by automated count 15.7 % low: 11.3%h igh: 14.8% high RDW-C V 15.7 (H) 11.3 - 14.8 % 06/09 2:37 AM PHOTOGRAPHER LITHOGRAPHIC [facility] Not Available Not Available 06/28/2024 17:40:48 06/09/1906/09/2024 CBC panel - Blood by Autom ated count platelets [#/volume] in blood by automated count 67 text: 150 - 420 x10e9/ L low Plate let Count 67 (L) 150 - 420 x10E9 /L 06/09 2:37 AM PHOTOGRAPHER LITHOGRAPHIC [facility] Not Available Not Available 06/28/2024 17:40:48 06/09/1906/09/2024 CBC panel - Blood by Autom ated count platelet mean volume [entitic volume] in blood by automated count 11.8 fL low: 7.8fLh igh: 11.4fL high MPV 11.8 (H) 7.8 - 11.4 fL 06/09 2:37 AM [facility] Not Available Not Available 06/28/2024 17:40:48 [...] - 4.940 uIU/m L 06/09 2:56 AM PHOTOGRAPHER LITHOGRAPHIC [facility] Not Available Not Available 06/28/2024 17:40:43 06/09/1906/09/2024 Thyro tropi n [Unit s/vol ume] in Serum or Plasm a interpretati on and review of laboratory results Normal Not Available Not Available 06/05 17:40:43 06/09/1906/09/2024 Hemog lobin A1c/H emogl obin. total in Blood hemoglobin A1C/hemoglob in.total in blood 9.1 % high: 5.7% high Hemog lobin A1c 9.1 (H) <5.7 % 06/09 2:28 AM PHOTOGRAPHER LITHOGRAPHIC [facility] Not Available Not Available 06/28/2024 17:40:43 06/09/19 25 06/09/2024 Hemog lobin A1c/H emogl obin. total in Blood glucose mean value [mass/volume ] in blood estimated from glycated hemoglobin 214 mg/dL Estim ated [place] [facility] Gluco se 214 mg/dL 06/09 2:28 AM PHOTOGRAPHER LITHOGRAPHIC [facility] Not Available Not Available [...] Not Available 17:40:43 06/09/19 25 06/09/2024 Compr qLearningens chetna metab olic 1999 panel - Serum or Plasm a glucose [mass/volume ] in serum or plasma 220 mg/dL low: 70mg/d Lhigh: 99mg/d L high Gluco se 220 (H) 70 - 99 mg/dL 06/09 3:01 AM PHOTOGRAPHER LITHOGRAPHIC [facility] Not Available Not Available 06/28/2024 17:40:42 06/09/19 25 06/09/2024 Compr qLearningens chetna metab olic 2000 panel - Serum or Plasm a sodium [moles/volum e] in serum or plasma 134 mmol/ L low: 136mmo l/Lhig h: 145mmo l/L low Sodiu m 134 (L) 136 - 145 mmol/ L 06/09 3:01 AM PHOTOGRAPHER LITHOGRAPHIC [facility] Not Available Not Available 06/28/2024 17:40:42 06/09/19 25 06/09/2024 Compr [employer] chetna metab olic 2000 panel - Serum or Plasm a potassium [moles/volum e] in serum or plasma 4.2 mmol/ L low: 3.5mmo l/Lhig h: 5.1mmo l/L Potas sium 4.2 3.5 - 5.1 mmol/ L 06/09 3:01 AM PHOTOGRAPHER LITHOGRAPHIC [facility] Not Available Not Available 06/28/2024 17:40:42 06/09/19 25 06/09/2024 Compr qLearningens chetna metab olic 2000 panel - Serum or Plasm a chloride [moles/volum e] in serum or plasma 104 mmol/ L low: 98mmol /Lhigh : 107mmo l/L Chlor james 104 98 - 107 mmol/ L 06/09 3:01 AM PHOTOGRAPHER LITHOGRAPHIC [facility] AT[facility] Not Available Not Available 06/28/2024 17:40:42 06/09/19 25 06/09/2024 Compr ehens chetna metab olic 1999 panel - Serum or Plasm a carbon dioxide, total [moles/volum e] in serum or plasma 21 mmol/ L low: 22mmol /Lhigh : 29mmol /L low CO2 21 (L) 22 - 29 mmol/ L 06/09 3:01 AM [facility] ATORY Not Available Not Available 06/28/2024 17:40:42 06/09/1906/09/2024 Compr ehens chetna metab olic 2000 panel - Serum or Plasm a calcium [mass/volume ] in serum or plasma 8.1 mg/dL low: 8.4mg/ dLhigh : 10.4mg /dL low Calci um 8.1 (L) 8.4 - 10.4 mg/dL 06/09 3:01 AM [facility] ATORY Not Available Not Available 06/28/2024 17:40:42 06/09/19 25 06/09/2024 Compr ehens chetna metab olic 2000 panel - Serum or Plasm a anion gap in blood 9 mmol/ L low: 6mmol/ Lhigh: 16mmol /L Anion Gap 9 6 - 16 mmol/ L 06/09 3:01 AM [facility] [employer] ATORY Not Available Not Available 06/28/2024 17:40:42 06/09/19 25 06/09/2024 Compr ehens chetna metab olic 2000 panel - Serum or Plasm a urea nitrogen [mass/volume ] in serum or plasma 18 mg/dL low: 7mg/dL high: 26mg/d L BUN 18 7 - 26 mg/dL 06/09 3:01 AM [facility] ATORY Not Available Not Available 06/28/2024 17:40:42 06/09/19 25 06/09/2024 Compr ehens chetna metab olic 2000 panel - Serum or Plasm a creatinine [mass/volume ] in serum or plasma 0.85 mg/dL low: 0.72mg /dLhig h: 1.25mg /dL Creat inine 0.85 0.72 - 1.25 mg/dL 06/09 3:01 AM [facility] AT[facility] Not Available Not Available 06/28/2024 17:40:42 06/09/19 25 06/09/2024 Compr ehens chetna metab olic 1999 panel - Serum or Plasm a alkaline phosphatase [enzymatic activity/vol ume] in serum or plasma 65 U/L low: 40U/Lh igh: 150U/L Alkal ine Phosp hatas e 65 40 - 150 U/L 06/09 3:01 AM [employer] [facility] LAB[facility] ATORY Not Available Not Available 06/28/2024 17:40:42 06/09/19 25 06/09/2024 Compr ehens chetna metab olic 1999 panel - Serum or Plasm a alanine aminotransfe rase [enzymatic activity/vol ume] in serum or plasma 14 U/L low: 0U/Lhi gh: 55U/L ALT 14 0 - 55 U/L 06/09 3:01 AM [facility] AT[facility] Not Available Not Available 06/28/2024 17:40:42 06/09/19 25 06/09/2024 Compr ehens chetna metab olic 1999 panel - Serum or Plasm a aspartate aminotransfe rase [enzymatic activity/vol ume] in serum or plasma 50 U/L low: 5U/Lhi gh: 34U/L high AST 50 (H) 5 - 34 U/L 06/09 3:01 AM [facility] [employer] ATORY Not Available Not Available 06/28/2024 17:40:42 06/09/19 25 06/09/2024 Compr ehens chetna metab olic 1999 panel - Serum or Plasm a protein [mass/volume ] in serum or plasma 5.8 text: 6.4 - 8.3 gm/dL low Prote in Total 5.8 (L) 6.4 - 8.3 gm/dL 06/09 3:01 AM [facility] AT[facility] Not Available Not Available 06/28/2024 17:40:42 06/09/19 25 06/09/2024 Compr ehens chetna metab olic 2000 panel - Serum or Plasm a albumin [mass/volume ] in serum or plasma 2.8 text: 3.4 - 5.0 gm/dL low Album in 2.8 (L) 3.4 - 5.0 gm/dL 06/09 3:01 AM [employer]GR[employer] LABOR ATORY Not Available Not Available 06/28/2024 17:40:42 06/09/1906/09/2024 Compr ehens chetna metab olic 1999 panel - Serum or Plasm a bilirubin.to kathi [mass/volume ] in serum or plasma 3.2 mg/dL low: 0.2mg/ dLhigh : 1.2mg/ dL high Bilir ubin Total 3.2 (H) 0.2 - 1.2 mg/dL 06/09 3:01 AM PHOTOGRAPHER L[employer] LABOR ATORY Not Available Not Available 06/28/2024 17:40:42 06/09/1906/09/2024 Compr ehens chetna metab olic 2000 panel - Serum or Plasm a glomerular filtration rate/1.73 sq M.predicted [volume rate/area] in serum, plasma or blood by creatinine-b ased formula (CKD-epi 2020) text: >=90 mL/min /1.73 m2 eGFR by CKD-E PI >90 >=90 mL/mi n/1.7 3 m2 06/09 3:01 AM [employer] LABOR ATORY Not Available Not Available 06/28/2024 [...] 2.5 - 4.5 mg/dL 06/09 2:40 AM [employer]GR[employer] [facility] LABOR ATORY Not Available Not Available 06/28/2024 [...] 1.6 - 2.6 mg/dL 06/09 2:40 AM [employer]GR[employer] LABOR ATORY Not Available Not Available 06/28/2024 17:40:42 06/09/1906/09/2024 Magne sium [Mass /volu me] in Serum or Plasm a interpretati on and review of laboratory results Normal Not Available Not Available 06/05 17:40:42 06/09/1906/09/2024 Lipid 1995 panel - Serum or Plasm a cholesterol [mass/volume ] in serum or plasma 69 mg/dL high: 200mg/ dL Loretta stero l 69 <200 mg/dL 06/09 2:40 AM PHOTOGRAPHER [employer] ATORY Not Available Not Available 06/28/2024 17:40:42 06/09/1906/09/2024 Lipid 1995 panel - Serum or Plasm a triglyceride [mass/volume ] in serum or plasma 99 mg/dL high: 150mg/ dL Trigl yceri patricia 99 <150 mg/dL 06/09 2:40 AM [employer] ATORY Not Available Not Available 06/28/2024 17:40:42 06/09/19 25 06/09/2024 Lipid 1995 panel - Serum or Plasm a cholesterol in HDL [mass/volume ] in serum or plasma 19 mg/dL low: 40mg/d L low HDL Loretta stero l 19 (L) >40 mg/dL 06/09 2:40 AM [employer]GR[employer] LABOR ATORY Not Available Not Available 06/28/2024 17:40:42 06/09/19 25 06/09/2024 Lipid 1995 panel - Serum or Plasm a cholesterol in LDL [mass/volume ] in serum or plasma by calculation 30 mg/dL high: 130mg/ dL LDL Calcu lated 30 <130 mg/dL 06/09 2:40 AM [employer]GR[employer] LABOR ATORY Not Available Not Available 06/28/2024 17:40:42 06/09/19 25 06/09/2024 Lipid 1996 panel - Serum or Plasm a cholesterol in VLDL [mass/volume ] in serum or plasma by calculation 20 mg/dL high: 30mg/d L VLDL Calcu lated 20 <=30 mg/dL 06/09 2:40 AM PHOTOGR[employer] ATORY Not Available Not Available 06/28/2024 17:40:42 06/09/19 25 06/09/2024 Lipid 1996 panel - Serum or Plasm a cholesterol. total/choles terol in HDL [mass ratio] in serum or plasma 3.6 high: 4.5 Chol HDL Ratio 3.6 <4.5 06/09 2:40 AM [employer]GR[employer] ATORY Not Available Not Available 06/28/2024 17:40:42 06/09/19 25 06/09/2024 Lipid 1996 panel - Serum or Plasm a cholesterol in LDL/choleste rol in HDL [mass ratio] in serum or plasma 1.6 high: 5 LDL/H DL Ratio 1.6 <5.0 06/09 2:40 AM [employer] ATORY Not Available Not Available 06/28/2024 17:40:42 [...] 70 - 99 mg/dL 06/10 12:53 PM PHOTOGR[employer]HER [employer] ATORY Not Available Not Available 06/28/2024 17:40:43 06/10/1906/10/2024 Gluco se [Mass /volu me] in Arter ial blood specimen source identified Cap Finger stick Speci men Type Cap Finge rstic k 06/10 12:53 PM PHOTOGRAPHER [employer] ATORY Not Available Not Available 06/28/2024 17:40:43 [...] 70 - 99 mg/dL 06/10 1:24 PM PHOTOGRAPHER LITHOGRAPHIC [facility] LABOR ATORY Not Available Not Available 06/28/2024 17:40:48 06/10/19 25 06/10/2024 Gluco se [Mass /volu me] in Arter ial blood specimen source identified Cap Finger stick Speci men Type Vincent De Paz rstic k 06/10 1:24 PM PHOTOGRAPHER L[employer] [facility] LABOR ATORY Not Available Not Available [...] 70 - 99 mg/dL 06/10 7:16 AM PHOTOGR[employer] [facility] LABOR ATORY Not Available Not Available 06/28/2024 17:40:48 06/10/19 25 06/10/2024 Gluco se [Mass /volu me] in Arter ial blood specimen source identified Cap Finger stick Speci men Type Cap Lanie rstic k 06/10 7:16 AM PHOTOGRAPHER [employer] [facility] LABOR ATORY Not Available Not Available 06/28/2024 17:40:48 06/10/19 25 06/10/2024 Gluco se [Mass /volu me] in Arter ial blood glucose [mass/volume ] in capillary blood by glucometer 74 mg/dL low: 70mg/d Lhigh: 99mg/d L Gluco se WB/PO C 74 70 - 99 mg/dL 06/10 6:43 AM PHOTOGRAPHER L[employer]APH[employer] LABOR ATORY Not Available Not Available 06/28/2024 17:40:48 06/10/1906/10/2024 Gluco se [Mass /volu me] in Arter ial blood specimen source identified Cap Finger stick Speci men Type Cap Finge rstic k 06/10 6:43 AM PHOTOGRAPHER L[employer] LABOR ATORY Not Available Not Available 06/28/2024 17:40:48 06/10/1906/10/2024 CBC panel - Blood by Autom ated count leukocytes [#/volume] in blood by automated count 2.3 text: 4.0 - 10.7 x10e9/ L low WBC 2.3 (L) 4.0 - 10.7 x10E9 /L 06/10 5:36 AM PHOTOGR[employer] LABOR ATORY Not Available Not Available 06/28/2024 17:40:43 06/10/1906/10/2024 CBC panel - Blood by Autom ated count erythrocytes [#/volume] in blood by automated count 4.44 text: 4.30 - 5.80 x10e12 /L RBC Count 4.44 4.30 - 5.80 x10E1 2/L 06/10 5:36 AM PH[employer]GR[employer] LABOR ATORY Not Available Not Available 06/28/2024 17:40:43 06/10/1906/10/2024 CBC panel - Blood by Autom ated count hemoglobin [mass/volume ] in blood 13.2 g/dL low: 13.3g/ dLhigh : 17.5g/ dL low Hemog lobin 13.2 (L) 13.3 - 17.5 g/dL 06/10 5:36 AM PHOTOGR[employer]HER [employer] LABOR ATORY Not Available Not Available 06/28/2024 17:40:43 06/10/1906/10/2024 CBC panel - Blood by Autom ated count hematocrit [volume fraction] of blood by automated count 37.8 % low: 38.7%h igh: 51.1% low Hemat ocrit 37.8 (L) 38.7 - 51.1 % 06/10 5:36 AM PHOTOGR[employer]HER [employer] LABOR ATORY Not Available Not Available 06/28/2024 17:40:43 06/10/1906/10/2024 CBC panel - Blood by Autom ated count MCV [entitic volume] by automated count 85.1 fL low: 80fLhi gh: 98fL MCV 85.1 80.0 - 98.0 fL 06/10 5:36 AM PHOTOGR[employer]HER [employer] LABOR ATORY Not Available Not Available 06/28/2024 17:40:43 06/10/1906/10/2024 CBC panel - Blood by Autom ated count MCH [entitic mass] by automated count 29.7 pg low: 26.7pg high: 33.6pg MCH 29.7 26.7 - 33.6 pg 06/10 5:36 AM PHOTOGR[employer]HER [employer] LABOR ATORY Not Available Not Available 06/28/2024 17:40:43 06/10/1906/10/2024 CBC panel - Blood by Autom ated count MCHC [mass/volume ] by automated count 34.9 g/dL low: 31.7g/ dLhigh : 36.3g/ dL MCHC 34.9 31.7 - 36.3 g/dL 06/10 5:36 AM PHOTOGRAPHER [employer] LABOR ATORY Not Available Not Available 06/28/2024 17:40:43 06/10/1906/10/2024 CBC panel - Blood by Autom ated count erythrocyte distribution width [ratio] by automated count 15.2 % low: 11.3%h igh: 14.8% high RDW-C V 15.2 (H) 11.3 - 14.8 % 06/10 5:36 AM [employer] LABOR ATORY Not Available Not Available 06/28/2024 17:40:43 06/10/1906/10/2024 CBC panel - Blood by Autom ated count platelets [#/volume] in blood by automated count 64 text: 150 - 420 x10e9/ L low Plate let Count 64 (L) 150 - 420 x10E9 /L 06/10 5:36 AM PHOTOGR[employer]HER [employer] LABOR ATORY Not Available Not Available 06/28/2024 17:40:43 06/10/1906/10/2024 CBC panel - Blood by Autom ated count platelet mean volume [entitic volume] in blood by automated count 10.9 fL low: 7.8fLh igh: 11.4fL MPV 10.9 7.8 - 11.4 fL 06/10 5:36 AM PHOTOGRAPHER [employer] ATORY Not Available Not Available 06/28/2024 17:40:43 [...] 70 - 99 mg/dL 06/10 5:25 AM [employer] ATORY Not Available Not Available 06/28/2024 17:40:42 06/10/19 25 06/10/2024 Basic metab olic 2000 panel - Serum or Plasm a sodium [moles/volum e] in serum or plasma 139 mmol/ L low: 136mmo l/Lhig h: 145mmo l/L Sodiu m 139 136 - 145 mmol/ L 06/10 5:25 AM [employer] ATORY Not Available Not Available 06/28/2024 17:40:42 06/10/19 25 06/10/2024 Basic metab olic 2000 panel - Serum or Plasm a potassium [moles/volum e] in serum or plasma 3.4 mmol/ L low: 3.5mmo l/Lhig h: 5.1mmo l/L low Potas sium 3.4 (L) 3.5 - 5.1 mmol/ L 06/10 5:25 AM [employer] ATORY Not Available Not Available 06/28/2024 17:40:42 06/10/19 25 06/10/2024 Basic metab olic 2000 panel - Serum or Plasm a chloride [moles/volum e] in serum or plasma 107 mmol/ L low: 98mmol /Lhigh : 107mmo l/L Chlor james 107 98 - 107 mmol/ L 06/10 5:25 AM PHOTOGR[employer]HER [employer] LABOR ATORY Not Available Not Available 06/28/2024 17:40:42 06/10/1906/10/2024 Basic metab olic 2000 panel - Serum or Plasm a carbon dioxide, total [moles/volum e] in serum or plasma 22 mmol/ L low: 22mmol /Lhigh : 29mmol /L CO2 22 22 - 29 mmol/ L 06/10 5:25 AM PHOTOGR[employer]HER [employer] LABOR ATORY Not Available Not Available 06/28/2024 17:40:42 06/10/1906/10/2024 Basic metab olic 2000 panel - Serum or Plasm a calcium [mass/volume ] in serum or plasma 8.2 mg/dL low: 8.4mg/ dLhigh : 10.4mg /dL low Calci um 8.2 (L) 8.4 - 10.4 mg/dL 06/10 5:25 AM PHOTOGR[employer]HER [employer] LABOR ATORY Not Available Not Available 06/28/2024 17:40:42 06/10/1906/10/2024 Basic metab olic 2000 panel - Serum or Plasm a anion gap in blood 10 mmol/ L low: 6mmol/ Lhigh: 16mmol /L Anion Gap 10 6 - 16 mmol/ L 06/10 5:25 AM PHOTOGR[employer]HER [employer] LABOR ATORY Not Available Not Available 06/28/2024 17:40:42 06/10/19 25 06/10/2024 Basic metab olic 2000 panel - Serum or Plasm a urea nitrogen [mass/volume ] in serum or plasma 15 mg/dL low: 7mg/dL high: 26mg/d L BUN 15 7 - 26 mg/dL 06/10 5:25 AM PHOTOGR[employer]HER [employer] LABOR ATORY Not Available Not Available 06/28/2024 17:40:42 06/10/19 25 06/10/2024 Basic metab olic 2000 panel - Serum or Plasm a creatinine [mass/volume ] in serum or plasma 0.7 mg/dL low: 0.72mg /dLhig h: 1.25mg /dL low Creat inine 0.70 (L) 0.72 - 1.25 mg/dL 06/10 5:25 AM PHOTOGRAPHER [employer] LABOR ATORY Not Available Not Available 06/28/2024 17:40:42 06/10/19 25 06/10/2024 Basic metab olic 2000 panel - Serum or Plasm a glomerular filtration rate/1.73 sq M.predicted [volume rate/area] in serum, plasma or blood by creatinine-b ased formula (CKD-epi 2020) text: >=90 mL/min /1.73 m2 eGFR by CKD-E PI >90 >=90 mL/mi n/1.7 3 m2 06/10 5:25 AM PHOTOGRAPHER [employer] [facility] LABOR ATORY Not Available Not Available 06/28/2024 17:40:42 06/10/19 25 06/10/2024 Basic metab olic 2000 panel - Serum or Plasm a interpretati on and review of laboratory results Abnorm al Not Available Not Available 17:40:42 02/24/20 24 02/23/2024 XR, abdom en No observ ation record ed. [facility] [address] [place], [address], 02/24/2024 08:59:19 04/17/20 24 04/16/2024 MRI, lumba r spine , w/o contr ast No observ ation record ed. [facility] [address] [place], [address], 04/18/2024 12:31:37 06/08/19 25 06/08/2024 XR, chest No observ ation record ed. [facility] [address] [place], [address], 06/08/2024 08:55:38 07/28/19 25 07/27/2024 XR, skull No observ ation record ed. [facility] [address] [place], [address], 07/28/2024 09:56:58 Result Notes None recorded. Problems Name Problem SNOMED Code Status Onset Date Resolution Date Notes Provider Name and Address Organization Details Recorded Time Diabetes mellitus 41997345 Active 2018 [facility] [place], [place] - [facility] 1 10:51:15 Liver finding 448063145 Active 2018 Amanda Amin [place], [place] [facility] 1 10:51:15 Hyperglycem ia due to type 2 diabetes mellitus 0119937364700 09 Active [facility] [place] [facility] 4 09:09:59 Type 2 diabetes mellitus in obese 73203889 Active Amanda Amin [place] [facility] 1 10:51:15 Bacteremia 5473316 Active Amanda Amin [place] [facility] 10:51:15 Gastroesoph ageal reflux disease 702878366 Active [facility] [place] [facility] 10:51:15 Abscess 077213472 Active [facility] [place] [facility] 10:51:15 Backache 819066168 Active [facility] [place] [facility] 10:51:15 Hepatic failure 66910778 Active Amanda Amin [place] [facility] 1 10:51:15 Problem Notes None recorded. Procedures Surgical History Date Name Laterality Status Provider Name and Address Organization Details Recorded Time 6 colonoscopy completed Amanda Amin [place] [facility] 11/15/2021 15:39:15 Imaging Results Imaging Date Name Status LastModified by Organiz ation Details LastModified Time 02/23/2024 XR, abdomen completed [facility] [address] [place], [address], 02/24/2024 08:59:19 04/16/2024 MRI, lumbar spine, w/o contrast completed [facility] [address] [place], [address], 04/18/2024 12:31:37 06/08/2024 XR, chest completed [facility] [address] [place], [address], 06/08/2024 08:55:38 07/27/2024 XR, skull completed [facility] [address] [place], [address], 07/28/2024 09:56:58 Procedure Notes None recorded. Medical Equipment None Reported. Allergies Allergen ID Allergen Name Allergen Category Reaction Reaction Severity Criticality Documentation Date Start Date Code Code System Note Provider Name and Address Organization Details Recorded Time 774314 Product containin g penicilli n (product) medicatio n Not available Not available Not available 12/16/2017 39986 8001 SNOMED Not Available Not Available Not Available 595728 Substance with sulfonami de structure and antibacte rial mechanism of action (substanc e) medicatio n Not available Not available Not available 12/16/2017 23460 8003 SNOMED Not Available Not Available Not Available 375242 Nexium medicatio n Not available Not available Not available 12/16/2017 90525 9 RxNorm Not Available Not Available Not Available 607866 erythromy roxana medicatio n Not available Not available Not available 12/16/2017 4053 RxNorm Not Available Not Available Not Available 552536 Iodinated contrast media (substanc e) medicatio n Not available Not available Not available 12/16/2017 34174 2004 SNOMED Not Available Not Available Not Available 866898 ciproflox acin medicatio n Not available Not available Not available 12/16/2017 2551 RxNorm Not Available Not Available Not Available 528407 Azactam medicatio n Not available Not available Not available 12/16/2017 07759 1 RxNorm Not Available Not Available Not Available 862136 aztreonam medicatio n Not available Not available Not available 12/16/2017 1272 RxNorm Not Available Not Available Not Available 520836 octreotid e Not available Not available Not available Not available 12/16/2017 7617 RxNorm Not Available Not Available Not Available 948168 duloxetin e medicatio n Not available Not available Not available 12/16/2017 86257 RxNorm Not Available Not Available Not Available 716797 oxycodone medicatio n other Not available Not [...] completed Not Available Not Available Not Available [employer] Ultra Test strips USE FOR TESTING BEFORE [...] completed Not Available Not Available Not Available [email or web address] G7 Sensor device CHANGE SENSOR EVERY 10 DAYS active Not Available Not Available No t Available Vitals Date Recorded Body height Body mass index (BMI) Body weight Oxygen saturation Oxygen saturation in Arterial blood by Pulse oximetry Heart rate Systolic blood pressure Diastolic blood pressure Provider Name and Address Organization Details Last Updated DateTime 4 171.45 cm 34.6 kg/m2 572644. 69 g 96 % 96 % 108 /min 121 mm[Hg] 81 mm[Hg] Karina Alvarez MA [facility] 4 11:08:58 Date Recorded Body height Body mass index (BMI) Body weight Oxygen saturation Oxygen saturation in Arterial blood by Pulse oximetry Heart rate Systolic blood pressure Diastolic blood pressure Provider Name and Address Organization Details Last Updated DateTime 4 171.45 cm 34.9 kg/m2 267757. 28 g 95 % 95 % 94 /min 139 mm[Hg] 80 mm[Hg] Karina Alvarez MA [facility] 4 14:55:26 Date Recorded Body height Body mass index (BMI) Body weight Oxygen saturation Oxygen saturation in Arterial blood by Pulse oximetry Heart rate Systolic blood pressure Diastolic blood pressure Provider Name and Address Organization Details Last Updated DateTime 4 171.45 cm 35 kg/m2 779201. 47 g 97 % 97 % 97 /min 128 mm[Hg] 81 mm[Hg] Karina Alvarez MA [facility] 4 10:54:27 Date Recorded Body height Body mass index (BMI) Body weight Oxygen saturation Oxygen saturation in Arterial blood by Pulse oximetry Heart rate Systolic blood pressure Diastolic blood pressure Provider Name and Address Organization Details Last Updated DateTime 4 171.45 cm 34.5 kg/m2 115640. 9 g 95 % 95 % 102 /min 149 mm[Hg] 91 mm[Hg] Karina Alvarez MA [facility] 4 10:09:39 Date Recorded Body height Body mass index (BMI) Body weight Oxygen saturation Oxygen saturation in Arterial blood by Pulse oximetry Heart rate Systolic blood pressure Diastolic blood pressure Provider Name and Address Organization Details Last Updated DateTime 5 171.45 cm 33.9 kg/m2 86131.3 2 g 95 % 95 % 88 /min 120 mm[Hg] 88 mm[Hg] Amanda Amin MA [place] - [facility] 5 17:59:35 Social History Question [...] Anxious, Or Unable To Sleep At Night)? [id number] [email or web address] Information not available 08/21/2021 Do You [...] Skin Problems N Anemia N Heart Attack (AR) N Diabetes Y Anxiety Disorder Y Muscle, [...] mcg/0.3 mL dose 12/08/2020 completed Not Available [facility] 4 10:49:05 COVID-19, mRNA, LNP-S, PF, 30 mcg/0.3 mL dose 12/29/2020 completed Not Available [facility] 4 10:49:05 Hep A-Hep B 09/10/2015 completed Amanda Amin MA [place], [place] - [facility] 07/20/2023 09:11:13 Past Encounters Encounter ID Performer Location Encounter Start Date Encounter Closed Date Diagnosis/Indication Diagnosis SNOMED-CT Code Diagnosis ICD10 Code Diagnosis Note [id number] Julia Guerrier MA [facility] [address] [place] [address] 12/16/2017 11:36:06 12/16/2017 12:52:59 Nonalcoholic steatohepatitis 712201515 K75.81 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 153673834 I85.10 Type 2 obdulio betes mellitus 78703926 E11.9 [id number] Janeth Pavon PA-C [facility] [address] [place] [address] 12/23/2017 11:30:06 12/23/2017 12:45:09 Diabetes mellitus 79292705 E11.69 Cholecystitis 44928537 K 80.01 End stage liver disease 936356749 K72.90 [id number] TOM Kunz [address] [place] [address] 02/11/2018 15:41:09 02/11/2018 16:48:42 Generalized anxiety disorder 24957160 F41.1 Uncontroll ed type 2 diabetes mellitus 605975811 E11.65 [id number] TOM Kunz [facility] [address] [place] [address] 03/02/2018 15:31:55 03/02/2018 16:08:34 End stage liver disease 392573800 K72.00 Uncontroll ed type 2 diabetes mellitus 221981111 E11.65 [id number] Janeth Pavon PA-C [facility] [address] [place] [address] 05/13/2018 15:37:41 05/13/2018 17:17:50 End stage liver disease 160190043 K72.00 [id number] Janeth Pavon PA-C [facility] [address] [place] [address] 05/25/2018 11:13:32 05/25/2018 11:43:34 End stage liver disease 591404483 K72.00 Dyspnea on exertion 6084 5006 R06.09 Tachycardia 7866304 R00. 0 On examina tion - deep seated pustules 782007155 L08.9 [id number] Janeth Pavon PA-C [facility] [address] [place] [address] 06/14/2018 10:19:40 06/14/2018 11:01:20 Diabetes mellitus 05096800 E11.69 End stage liver disease 857686498 K72.00 Lumbar radiculopathy 128 081240 M54.16 [id number] Janeth Pavon PA-C [facility] [address] [place] [address] 02/09/2019 14:30:46 02/09/2019 15:35:07 Diabetes mellitus 33396280 E11.69 Increased frequency of urination 742132905 R35.0 [id number] Janeth Pavon PA-C [facility] [address] [place] [address] 03/22/2019 15:44:00 03/22/2019 17:48:00 Anemia due to chronic blood loss 764572259 D50.0 Nonalcohol ic steatohepatitis 489537292 K75.81 Type 2 obdulio betes mellitus without complication 497404042 E11.9 Low back pain 534275125 M54.5 Increased frequency of urination 168345140 R35.0 Hepatic encephalopathy 43124571 K72.90 [id number] Janeth Pavon PA-C [facility] [address] [place] [address] 08/01/2019 11:23:53 08/01/2019 12:28:44 Cirrhosis of liver 89764935 K74.69 [id number] Janeth Pavon PA-C [facility] [address] [place] [address] 08/17/2019 09:24:17 08/24/2019 11:34:51 Diabetes mellitus 68138818 E11.69 Lumbar radiculopathy 128 575522 M54.16 [id number] Janeth Pavon PA-C [facility] [address] [place] [address] 08/31/2019 14:50:58 09/02/2019 14:48:06 Acute bronchitis with bronchospasm 47947914 J20.9 [id number] Janeth Pavon PA-C [facility] [address] [place] [address] 12/19/2019 09:34:48 12/19/2019 15:21:39 [id number] Janeth Pavon PA-C [facility] [address] [place] [address] 12/23/2019 09:37:23 12/23/2019 15:52:54 Diabetes mellitus 64577418 E11.69 Obstructiv e sleep apnea syndrome 70044196 G47.33 End stage liver disease 912689504 K72.00 Thoracic back pain 73010 8004 M54.6 [id number] Janeth Pavon PA-C [facility] [address] [place] [address] 01/25/2020 09:34:10 01/25/2020 15:21:39 Lumbar radiculopathy 042400899 M54.16 [id number] Janeth Pavon PA-C [facility] [address] [place] [address] 02/23/2020 09:42:16 02/23/2020 16:52:05 Diabetes mellitus 24483685 E11.69 Renal mass 330714318 N28 .89 Neoplasm of kidney 85425 0001 D49.592 [id number] Janeth Pavon PA-C [facility] [address] [place] [address] 06/13/2020 11:39:18 06/14/2020 10:53:35 Nonalcoholic steatohepatitis 505085721 K75.81 Uncontroll ed type 2 diabetes mellitus 442587716 E11.65 [id number] TOM Kunz [facility] [place] [address] [place] [address] 07/25/2020 11:21:27 07/25/2020 14:13:47 Long-term drug therapy 289315908 Z79.899 Gastroesop hageal reflux disease without esophagitis 689899085 K21.9 Hematochezia 384425822 K 92.1 Nausea and vomiting 1693 2000 R11.2 Pityriasis rosea 0174048 4 L42 Type 2 obdulio betes mellitus 82193904 E11.9 [id number] Janeth Pavon PA-C [facility] [address] [place] [address] 07/27/2020 10:05:37 07/31/2020 10:18:42 Uncontrolled type 2 diabetes mellitus 907538973 E11.65 [id number] Janeth Pavon PA-C [facility] [address] [place] [address] 2020 11:20:02 09/08/2020 12:42:46 Tinea corporis 05210266 B35.4 Abscess 286207731 L02.91 [id number] Janeth Pavon PA-C [facility] [address] [place] [address] 11/16/2020 10:47:40 11/16/2020 11:46:55 Exanthem due to herpes zoster 617038384 B02.8 [id number] Jnaeth Pavon PA-C [facility] [address] [place] [address] 06/26/2021 15:54:46 06/26/2021 17:00:08 Long-term drug therapy 085180525 Z79.899 Low back pain 215464616 M54.51 Body mass index 30+ - obesity 706161320 Z68.39 Screening for malignant neoplasm of prostate 297341455 Z12.5 [id number] Janeth Pavon PA-C [facility] [address] [place] [address] 08/21/2021 11:08:46 08/21/2021 12:35:42 Adult health examination 355790475 Z00.00 Backache 379646243 M54.9 [id number] Janeth Pavon PA-C [facility] [address] [place] [address] 11/15/2021 15:33:53 11/18/2021 10:03:54 Hyperglycemia due to type 2 diabetes mellitus 3596971967 35844 E11.65 Type 2 obdulio betes mellitus 77945124 E11.9 Morbid obesity 823414076 E66.01 End stage liver disease 365569960 K72.00 [id number] Janeth Pavon PA-C [facility] [address] [place] [address] 05/28/2022 16:19:55 05/28/2022 17:17:07 Uncontrolled type 2 diabetes mellitus 531981002 E11.65 Chronic back pain 214751 002 M54.05 Overweight 955591191 E66 .3 Urinary incontinence 165 306973 R32 Generalize d anxiety disorder 65473397 F41.1 Backache 977082436 M54.9 [id number] Janeth Pavon PA-C [facility] [address] [place] [address] 10/27/2022 14:34:16 10/28/2022 10:40:36 Long-term drug therapy 820431903 Z79.899 Lumbar radiculopathy 128 370655 M54.16 Persistent cough 1925774 02 R05.3 Daytime somnolence 48926 86033 00 R40.0 Type 2 obdulio betes mellitus 81571232 E11.9 Iron defic iency anemia 63134185 D50.8 [id number] Janeth Pavon PA-C [facility] [address] [place] [address] 12/29/2022 15:17:34 12/30/2022 09:55:18 Lumbar radiculopathy 036753409 M54.16 Overweight 127090095 E66 .3 [id number] Janeth Pavon PA-C [facility] [address] [place] [address] 02/24/2023 18:01:59 03/02/2023 15:11:10 Persistent cough 887777653 R05.3 Essential hypertension 34619503 I10 Overweight 844598104 E66 .3 [id number] Janeth Pavon PA-C [facility] [address] [place] [address] 05/14/2023 11:38:36 05/15/2023 11:58:34 Type 2 diabetes mellitus 59658117 E11.9 Mixed anxi ety and depressive disorder 769052216 F41.8 Overweight 747268811 E66 .3 [id number] Janeth Pavon PA-C [facility] [address] [place] [address] 06/04/2023 10:52:25 06/09/2023 14:14:44 Abdominal pain 91300796 R10.13 Cirrhosis of liver 71446 007 K74.69 Overweight 955057629 E66 .3 [id number] Janeth Pavon PA-C [facility] [address] [place] [address] 07/02/2023 12:08:49 07/03/2023 11:31:17 Type 2 diabetes mellitus 04672916 E11.9 Atypical chest pain 1025 44206 R07.89 Overweight 053471623 E66 .3 [id number] Janeth Pavon PA-C [facility] [address] [place] [address] 08/05/2023 15:58:27 08/21/2023 14:53:44 Uncontrolled type 2 diabetes mellitus 077143916 E11.65 Overweight 735879620 E66 .3 [id number] Janeth Pavon PA-C [facility] [address] [place] [address] 08/13/2023 14:55:22 08/20/2023 15:19:06 Lumbar radiculopathy 696214015 M54.16 [id number] KATHY VARGAS [facility] [address] [place] [address] 09/17/2023 08:59:31 09/18/2023 13:42:26 Atopic dermatitis 55703409 L20.9 -Patient presentati on consistent with atopic dermatitis .-Patient reports rash has improved with triamcinol one use. Patient to continue triamcinol one for another 7 days BID PRN.-[employer] ordering eucerin lotion for patient to use daily PRN.-[employer] provided atopic dermatitis care instructio ns. Type 2 obdulio betes mellitus 67247476 E11.21 -Uncontrol led.-Last A1c: 12 (05/14/23)- Continue current therapy-Jamie werner would like [facility] [employer] to place orders.-ATT[employer]UN[employer] discussed diet and lifestyle changes with the patient at length. [employer] provided numerous diabetes care instructio ns and discussed with the patient.-R ecommended diabetic diet-Educa manny to check feet daily [id number] Amanda Amin MA [facility] [address] [place] [address] 10/16/2023 11:23:31 10/17/2023 06:49:47 Long-term drug therapy 044432858 Z79.899 Diabetes mellitus 827894 09 E11.69 Overweight 788887410 E66 .3 [id number] Janeth Pavon PA-C [facility] [address] [place] [address] 01/14/2024 09:33:39 01/19/2024 12:05:45 Long-term drug therapy 892749010 Z79.899 Type 2 obdulio betes mellitus 10520537 E11.9 Uncontroll ed type 2 diabetes mellitus 588188313 E11.65 ER now Overweight 422377715 E66 .3 [id number] Janeth Pavon PA-C [facility] [address] [place] [address] 01/26/2024 10:49:29 02/03/2024 14:35:51 Cirrhosis of liver 78221270 K74.69 Type 2 obdulio betes mellitus 41774907 E11.9 Adult heal th examination 674393631 Z00.00 Overweight 532039647 E66 .3 [id number] Janeth Pavon PA-C [facility] [address] [place] [address] 03/03/2024 10:44:06 03/04/2024 13:36:40 Chronic low back pain 593772150 M54.59 Morbid obesity 929092533 E66.01 [id number] Janeth Pavon PA-C [facility] [address] [place] [address] 03/08/2024 14:46:39 03/09/2024 16:00:13 Seizure 77249958 G40.89 Uncontroll ed type 2 diabetes mellitus 444776327 E11.65 Dissociati ve convulsions 157619342 F44.5 Overweight 614029714 E66 .3 [id number] Janeth Pavon PA-C [facility] [address] [place] [address] 03/23/2024 10:36:19 03/28/2024 10:16:17 Lumbar radiculopathy 683848773 M54.16 Uncontroll ed type 2 diabetes mellitus 738022053 E11.65 Overweight 259010299 E66 .3 [id number] Janeth Pavon PA-C [facility] [address] [place] [address] 04/06/2024 09:53:53 04/06/2024 16:23:24 Dysuria 50470423 R30.0 Uncontroll ed type 2 diabetes mellitus 853659679 E11.65 Generalize d anxiety disorder 30303481 F41.1 Overweight 323590806 E66 .3 [id number] Janeth aPvon PA-C [facility] [address] [place] [address] 06/28/2024 17:38:46 06/29/2024 10:11:55 Hemoptysis 29174954 R04.2 Functional gait abnormality 2124715849 9103 R26.0 Health Concerns Section Related Observation [...] 2020 (MEDICAID REPLACEMENT - HMO) Camilo Curry [id number] Camilo Curry 03/08/2024 1 [employer] [place] ON [place] 2020 (MEDICAID REPLACEMENT - HMO) Camilo Curry [id number] Camilo Curry 03/23/2024 1 [employer] [place] ([place] REPLACEMENT - HMO) Camilo Curry [id number] Camilo Curry 04/06/2024 1 [employer] [place] ([place] REPLACEMENT - HMO) Camilo Curry [id number] Camilo Curry 06/28/2024 1 [employer] [place] ([place] REPLACEMENT - HMO) Camilo Curry [id number] Camilo Curry Notes Date Note Type Note Provider Name and Address Organization Details Recorded Time 03/03/2024 text/html 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 and wants a brace in order to facilitate ADL such as standing ambulating and hygiene and meal prep Janeth Pavon PA-C Attn: [address], [address] [place], [address], [facility] 03/03/2024 11:28:09 03/08/2024 text/html first time seizu re thursday night..says approx an hour?...was found in yard..refused EMS..cant get into psych until end of april...no xanax for over a month...reports BS was off meter high..reports no post ictal Janeth Pavon PA-C Attn: [address], [address] [place], [address], [facility] 03/08/2024 15:28:41 03/23/2024 text/html injured his lowe r back moving furniture...needs MRI...xray and CT spine were negative...phys therapy was ineffective...was just in ER Janeth Pavon PA-C Attn: Accounting, [address] [place], [address], [facility] 03/23/2024 11:18:37 04/06/2024 text/html has burning urination for a week... every hour frequency...says he has been drinking nikhil justice vs nausea...also needs something for sedation for MRI Janeth Pavon PA-C Attn: Accounting[address] [place], [address], [facility] 04/06/2024 10:29:01 06/28/2024 text/html was in CHF and pneumonia at [facility]..now is also vomiting brown like blood on occasion..hx of varices..also starting to lose balance again and also having pain around back to mid line..his balance feels like he leans over progressively as he walks and loses his balance... Janeth Pavon PA-C Attn: Accounting[address] [facility], [place], [address], [facility] 06/28/2024 18:35:45
--- OUTSIDE RECORDS SUMMARY | 2024-08-19 21:07 | XMS_ITS | Clinical Summary ---
Author Organization [facility] Address [address] [place] [address] Phone Care Team Providers Care Cargo Supervisor Name Role Phone Librado Braydon NEAL Primary Care Provider [phone] Vikram Mora MD Unavailable Riddhi Bello APRN, FERTILIZER MIXER Unavailable Allergies Active Allergy Reactions Criticality Noted [...] as needed. 3 Active ergocalciferol (VITAMIN D) 44197 UNIT Capsule Take 50,000 Units by mouth. Active Insulin Pen Needle (B-D ULTRAFINE III SHORT PEN) 31G X 8 MM Misc 1 Active Insulin Pen Needle (B-D ULTRAFINE III SHORT PEN) 31G X 8 MM Misc 1 Each by Subcutaneous route. 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 Gender Identity Not on file Sexual [...] Visit [facility] - Neurology [facility] [address] [place] [id number] Andrea Hawkins MD [address] [place] [address] Health Maintenance Due Date Last Done Comments [...] W/ ESTIMATED GLUCOSE STAT 05/20/2023 10:44 AM CHAIR SPRING ASSEMBLER from Last 3 Months or Most Recently Relevant to Health Maintenance Results * (ABNORMAL) CMP (Comprehensive Metabolic Panel) (11/13/2023 6:40 PM CDT) SODIUM 139 136 - 145 mmol/L 11/13/2023 7:25 PM CDT [facility] POTASSIUM 3.7 3.5 - 5.1 mmol/L 11/13/2023 7:25 PM CDT [facility] CHLORIDE 105 98 - 107 mmol/L 11/13/2023 7:25 PM CDT [facility] CO2, VENOUS 24 22 - 30 mmol/L 11/13/2023 7:25 PM CDT [facility] ANION GAP 13.7 <18.0 mmol/L 11/13/2023 7:25 PM CDT [facility] GLUCOSE 188(H) 70 - 99 mg/dL 11/13/2023 7:25 PM CDT [facility] BUN 11 8 - 26 mg/dL 11/13/2023 7:25 PM CDT [facility] CREATININE, BLOOD 0.84 0.70 - 1.30 mg/dL 11/13/2023 7:25 PM CDT [facility] BUN/CREATININE RATIO 13 12 - 20 ratio 11/13/2023 7:25 PM CDT [facility] TOTAL PROTEIN 7.3 6.3 - 8.2 g/dL 11/13/2023 7:25 PM CDT [facility] ALBUMIN 3.9 3.5 - 5.0 g/dL 11/13/2023 7:25 PM CDT [facility] A/G RATIO 1.1 1.0 - 2.2 11/13/2023 7:25 PM CDT [facility] CALCIUM 9.4 8.7 - 10.5 mg/dL 11/13/2023 7:25 PM CDT [facility] T BILI 3.6(H) 0.2 - 1.2 mg/dL 11/13/2023 7:25 PM CDT [facility] SGOT (AST) 27 5 - 34 U/L 11/13/2023 7:25 PM CDT [facility] SGPT (ALT) 17 0 - 55 U/L 11/13/2023 7:25 PM CDT [facility] ALKALINE PHOSPHATASE 90 40 - 150 U/L 11/13/2023 7:25 PM CDT [facility] GFR, ESTIMATED >60 >=60 11/13/2023 7:25 PM CDT [facility] Comment: Creatinine Clearance is the preferred criteria for selecting drug dose adjustments in renally impaired patients. The GFR is provided as additional pertinent clinical information. GFR is reported in mL/min/1.73 sq m. Calculation based on the Chronic Kidney Disease Epidemiology Collaboration (CKD- EPI) equation refit without adjustment for race. GFR, EST. >60 >=60 024 7:25 PM CDT [facility] GFR, EST. NONAFRICAN >60 >=60 11/13/2023 7:25 PM CDT [facility] Blood Venipuncture / Unknown 11/13/2023 6:40 PM CDT 11/13/2023 7:00 PM CDT us Lul Junior DO CHEMISTRY ORDERABLES Fi nal Result [facility] [address] [place] [address] * (ABNORMAL) Hemoglobin A1C (05/20/2023 10:44 AM CHAIR SPRING ASSEMBLER) HGB-A1C 11.6(H) 4.0 - 6.0 % 05/20/2023 12:30 PM CHAIR SPRING ASSEMBLER [facility] Est Average Glucose 286.2 mg/dL 05/20/2023 12:30 PM CHAIR SPRING ASSEMBLER [facility] Blood Venipuncture / Unknown 05/20/2023 10:44 AM CHAIR SPRING ASSEMBLER 05/20/2023 11:01 AM CHAIR SPRING ASSEMBLER Narrative [facility] - 05/20/2023 12:30 PM CHAIR SPRING ASSEMBLER HEMOGLOBIN A1C: DIABETIC PATIENTS: WELL-CONTROLLED: 6.2 - 7.0 INTERMEDIATE WELL-CONTROLLED: 7.0 - 9.0 POORLY-CONTROLLED: >9.0 Felicitas Luz APRN, FERTILIZER MIXER CHEMISTRY ORDERABLES Final Result Performing Organization Address City/[facility] Co de Phone Number [facility] [address] [place] [address] from Last 3 Months or Most Recently Relevant to Health Maintenance Insurance MEDICAID [facility] [address] [place] [address] Care Teams Cargo Supervisor Relationship Specialty Start Date End Date Braydon Pavon, [address] [place] [address] PCP - General Physician Chemist Instrumentation 06/22/18 Vikram Mora MD [address] [id number] Consulting Physician Endocrinology 05/21/23 Riddhi Bello APRN, FERTILIZER MIXER [address] [place] [address] Nurse Practitioner Advanced Practice Nurse 02/10/23
--- OUTSIDE RECORDS SUMMARY | 2024-08-19 21:07 | XMS_ITS | Continuity of Care Document ---
Author Organization [facility] Address [address] [facility] [place] [address] Phone Care Team Providers Care Stock Buyer Name Role Phone Roosevelt Mcgee MD Unavailable [...] route every day 5 MG - Active [place] 10 mg-325 mg tablet take 1 tablet [...] Copied on Encounter OFFICE/OUTPA TIENT VISIT, EST [facility] [place], [address] [place], [place], [id number], [place] tel:[phone] [facility] [place] anxiety1 (chief complaint) DM (chief complaint) liver cirrhosis (chief complaint) GERD1 (chief complaint) chronic pain (chief complaint) Type 2 diabetes mellitus without complicationsGenera lized Anxiety DisorderOther cirrhosis of liverChronic pain syndrome [address] [place], [place], [id number] , . tel:[phone] Referring Provider: Roosevelt Mcgee [address] [place], [place], [id number]. tel:[phone] Family History Family Member Type Diagnosis Age At Onset Mother Problem (finding) of ovarian CA Mother Problem (finding) Sister Problem (finding) Alive and well Father Problem (finding) Sister Problem (finding) Diabetes mellitus type 2 Father Problem (finding) esophageal CA Payers Payer name Insurance type Covered democrat ID Authoriza tion(s) No Information Social History [...] takes lantus, tradejnta, humalog. His BG is [id number]. Pt sees endo for his DM. Pt [...] Mental Status Date Cognitive Assessment Orientation - [place] ed to time, place, person, situation.
--- OUTSIDE RECORDS SUMMARY | 2024-08-19 21:07 | XMS_ITS | Clinical Summary ---
Author Organization [facility] Address [address] [address] Care Team Providers Care Tableau Report Developer Name Role Phone Braydon Pavon Primary Care Provider [phone] Source Comments [facility],non-owned Affiliates and Associated Physician Practices is amultiple site organization consisting of ambulatory clinics and hospital sitesin [place], [place], [place] and [place]. This disclosure is being madepursuant to the Care Everywhere program and may not contain all information available regarding this patient. Last updated 18.[facility] Allergies Active Allergy Reactions Criticality Noted Date [...] document. Alwaysverify current medications with the patient. ALPRAZolam (XANAX) 0.5 MG tablet Take 1 (one) tablet by mouth 3 times daily as needed for Anxiety Active pen needles 16 31G X 8 MM 31G X 8 MM Use as directed 100 Each 3 9 Active INSULIN SYRINGE/NEEDLE U-500 31G X 6MM 0.5 ML (BD INSULIN SYRINGE U-500) 31G X 6MM 0.5 ML MISC Use 1 syringe 4 times daily - before meals & nightly 100 Each 3 9 Active Additional Information Patient taking differently: 200 UnitsDoes not apply3 TIMES DAILY WITH MEALS, 0.5ML = 200 UNITS TID WC - CONFIRMED WITH [facility] [phone], Reason: Provider adjusted, Reported on 06/09/2024 blood glucose (TRUE METRIX BLOOD GLUCOSE TEST) test strip Use 1 strip 3 times daily 100 strip 11 9 Active lactulose (CHRONULAC) 10 GM/15ML solutionIndica tions: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) Take 30 mL by mouth 4 times daily 1892 mL 3 9 Active famotidine (Pepcid) 20 MG tablet 4 Active polyethylene glycol 3350 (Miralax) 17 GM/SCOOP powder Take 17 (seventeen) g by mouth once daily as needed Active metFORMIN (Glucophage) 500 MG tablet Take 1 (one) tablet by mouth 2 times daily with morning and evening meal Active ondansetron, disintegrating , (Zofran ODT) 4 MG tablet Take 1 (one) tablet by mouth every 6 hours as needed for Nausea/Vomiting Allow tablet to dissolve on the tongue Active HYDROcodone-ac etaminophen ([place]) 10-325 MG tablet Take 1 (one) tablet by mouth every 6 hours as needed for Pain Active pregabalin (Lyrica) 100 MG capsule Take 2 (two) capsules by mouth 2 times daily Patient takes 200mg every morning and 300mg every evening Active oseltamivir (Tamiflu) 75 MG capsule Take 1 (one) capsule by mouth 2 times daily 7 capsule 5 Active Insulin Regular Human (HUMULIN R U-500 IKPEN AL) Inject 200 Units subcutaneously 3 times daily [...] Department Care Team Description 06/08/2024 3:27 PM FIELD SERVICES ANALYST - 06/10/2024 3:30 PM FIELD SERVICES ANALYST Hospital Encounter [facility] 6N Telemetry [id number] [place] [address] Louie Hi MD Fatima, Noor E, MD Chilakala, Aruna, MD Hospitalist Discharge Disposition: Home or Self Care 06/08/2024 Travel from Last 3 Months Family History [...] care, and heating? Not very hard 06/08/2024 [facility] Occupat ional Health - Occupational Stress [...] any time in the past 12 [facility], were you homeless or living in a residential (including now)? No 06/08/2024 Sex and Gender Information Value Date Recorded Sex Assigned at Not on file Legal Sex Male 8:18 AM FIELD SERVICES ANALYST Gender Identity Not on file Sexual Orientation Not on file Last Filed Vital Signs Vital Sign Reading Time Taken Comments Blood Pressure 110/69 06/10/2024 3:45 PM FIELD SERVICES ANALYST Pulse 81 06/10/2024 3:45 PM FIELD SERVICES ANALYST Temperature 36.8 C (98.2 F) 06/10/2024 3:45 PM FIELD SERVICES ANALYST Respiratory Rate 19 06/10/2024 3:45 PM FIELD SERVICES ANALYST Oxygen Saturation 94% 06/10/2024 3:45 PM FIELD SERVICES ANALYST Inhaled Oxygen Concentration - - Weight 99.8 kg (220 lb) 06/08/2024 3:47 PM FIELD SERVICES ANALYST Height 170.2 cm (5' 7 ) 06/08/2024 3:47 PM FIELD SERVICES ANALYST Body Mass Index 34.46 06/08/2024 3:47 PM FIELD SERVICES ANALYST Plan of Treatment Health Maintenance Due Date [...] of 2) 2020 COVID-19 VACCINE (3 - 2023-25 season) 2024 12/29/2020, 12/08/2020 DEPRESSION SCREENING 05/04/2024 DIABETES-HGB A1C 12/07/2024 06/09/2024, , 11/23/2023, Additional history exists INFLUENZA VACCINE (Season Ended) 2025 DIABETES - URINE PROTEIN SCREENING 05/31/2025 05/31/2024 [...] CARDIAC RHYTHM STRIP ORDER 06/13/2024 10:53 PM FIELD SERVICES ANALYST ECHO COMPLETE W CONTRAST Routine 06/10/2024 1:18 PM FIELD SERVICES ANALYST Acute congestive heart failure, unspecified heart failure type GLUCOSE - POINT OF CARE Routine 06/10/2024 12:48 PM FIELD SERVICES ANALYST GLUCOSE - POINT OF CARE Routine 06/10/2024 7:58 AM FIELD SERVICES ANALYST GLUCOSE - POINT OF CARE Routine 06/10/2024 7:14 AM FIELD SERVICES ANALYST GLUCOSE - POINT OF CARE Routine 06/10/2024 6:41 AM FIELD SERVICES ANALYST BASIC METABOLIC PANEL (CALCIUM TOTAL) AM Draw 06/10/2024 4:45 AM FIELD SERVICES ANALYST CBC W/O DIFFERENTIAL AM Draw 06/10/2024 4:45 AM FIELD SERVICES ANALYST GLUCOSE - POINT OF CARE Routine 06/09/2024 9:38 PM FIELD SERVICES ANALYST GLUCOSE - POINT OF CARE Routine 06/09/2024 5:17 PM FIELD SERVICES ANALYST GLUCOSE - POINT OF CARE Routine 06/09/2024 12:40 PM FIELD SERVICES ANALYST PT EVAL AND TREAT Routine 06/09/2024 12: 04 PM FIELD SERVICES ANALYST GLUCOSE - POINT OF CARE Routine 06/09/2024 7:48 AM FIELD SERVICES ANALYST GLUCOSE - POINT OF CARE Routine 06/09/2024 6:07 AM FIELD SERVICES ANALYST HEMOGLOBIN A1C Routine 06/09/2024 1:59 AM FIELD SERVICES ANALYST CBC W/O DIFFERENTIAL Routine 06/09/2024 1:59 AM FIELD SERVICES ANALYST COMPREHENSIVE METABOLIC PANEL Routine 06/09/2024 1:59 AM FIELD SERVICES ANALYST LIPID PROFILE Routine 06/09/2024 1:59 AM FIELD SERVICES ANALYST MAGNESIUM BLOOD Routine 06/09/2024 1:59 AM FIELD SERVICES ANALYST PHOSPHORUS BLOOD Routine 06/09/2024 1:59 AM FIELD SERVICES ANALYST TSH REFLEX FREE T4 Routine 06/09/2024 1: 59 AM FIELD SERVICES ANALYST GLUCOSE - POINT OF CARE Routine 06/08/2024 8:59 PM FIELD SERVICES ANALYST XR CHEST 1VW PORTABLE Routine 06/08/2024 5:04 PM FIELD SERVICES ANALYST Elevated troponin B-TYPE NATRIURETIC PEPTIDE STAT 06/08/2024 4:39 PM FIELD SERVICES ANALYST MAGNESIUM BLOOD STAT 06/08/2024 4:39 PM FIELD SERVICES ANALYST TROPONIN-I HIGH SENSITIVE STAT 06/08/2024 4:39 PM FIELD SERVICES ANALYST COMPREHENSIVE METABOLIC PANEL STAT 06/08/2024 4:39 PM FIELD SERVICES ANALYST CBC W AUTO DIFFERENTIAL STAT 06/08/2024 4:39 PM FIELD SERVICES ANALYST GLUCOSE - POINT OF CARE Routine 06/08/2024 3:34 PM FIELD SERVICES ANALYST from Last 3 Months Results * CARDIAC RHYTHM STRIP ORDER (06/13/2024 10:53 PM FIELD SERVICES ANALYST) Narrative 06/13/2024 10:53 PM FIELD SERVICES ANALYST Ordered by an unspecified provider. us Scanned Document CARDIAC SERVICES ORDERABLES Fin al Result * ECHO COMPLETE W CONTRAST (06/10/2024 1:18 PM FIELD SERVICES ANALYST) LA vol index 0.022 l/m [facility]SM CV [...] Region Laterality Modality Ultrasound 06/10/2024 9:00 AM FIELD SERVICES ANALYST Narrative 06/10/2024 1:53 PM FIELD SERVICES ANALYST Summary * The left ventricle is normal [...] 9:00 AM Patient Status: I/P Study Site: [facility] EStudy Info Exam Type: ECHO COMPLETE W CONTRAST Indications I50.9 - Acute congestive heart failure, unspecified heart failure type (HCC) Procedure(s) * A complete 2D, color Doppler, spectral Doppler and M-Mode transthoracic echocardiogram was performed with Sync.ME. Staff Referring Physician: López Yeager Ordering Provider: López Yeager Attending Physician: López Yeager Licensed Social Worker: Raven Harrison Left Ventricle The left ventricle [...] 9:00 AM Patient Status: I/P Study Site: [facility] Primary [facility] EStudy Info Exam Type: ECHO COMPLETE W CONTRAST Indications I50.9 - Acute congestive heart failure, unspecified heart failuretype (HCC) Procedure(s) * A complete 2D, color Doppler, spectral Doppler and M-Modetransthoracic echocardiogram was performed with Definity. Staff Referring Physician: López Yeager Ordering Provider: López Yeager Attending Physician: López Yeager Licensed Social Worker: Raven Harrison Left Ventricle The left ventricle [...] by Susan Rivera on 06/10/2024 01:53 PM us López Yeager MD ECHO CUPID Final Result * (ABNORMAL) GLUCOSE - POINT OF CARE (06/10/2024 12:48 PM FIELD SERVICES ANALYST) Only the most recent of11 resultswithin the time period is included. Pathologist [facility] Glucose WB/POC 159(H) 70 - 99 mg/dL 06/10/2024 12:53 PM FIELD SERVICES ANALYST [facility] Specimen Type Cap Fingerstick 2024 12:53 PM FIELD SERVICES ANALYST [facility] Blood BLOOD SPECIMEN / Unknown 06/10/2024 12:48 PM FIELD SERVICES ANALYST 06/10/2024 12:53 PM FIELD SERVICES ANALYST us Olipmia No MD LAB - POINT OF CARE ORDERABLE S Final Result [facility] [address] [place] [address] * (ABNORMAL) CBC W/O DIFFERENTIAL (06/10/2024 4:45 AM FIELD SERVICES ANALYST) Only the most recent of2 resultswithin the time period is included. [facility] WBC 2.3(L) 4.0 - 10.7 x10E9/L 06/10/2024 5:36 AM [facility] RBC Count 4.44 4.30 - 5.80 x10E12/L 06/10/2024 5:36 AM [facility] Hemoglobin 13.2(L) 13.3 - 17.5 g/dL 06/10/2024 5:36 AM [facility] Hematocrit 37.8(L) 38.7 - 51.1 % 06/10/2024 5:36 AM [facility] MCV 85.1 80.0 - 98.0 fL 06/10/2024 5:36 AM [facility] MCH 29.7 26.7 - 33.6 pg 06/10/2024 5:36 AM [facility] MCHC 34.9 31.7 - 36.3 g/dL 06/10/2024 5:36 AM [facility] RDW-CV 15.2(H) 11.3 - 14.8 % 06/10/2024 5:36 AM [facility] Platelet Count 64(L) 150 - 420 x10E9/L 06/10/2024 5:36 AM [facility] MPV 10.9 7.8 - 11.4 fL 06/10/2024 5:36 AM [facility] Blood BLOOD SPECIMEN / Unknown Venipuncture / Unknown 06/10/2024 4:45 AM FIELD SERVICES ANALYST 06/10/2024 5:01 AM [facility] us Olimpia No MD LAB - HEMATOLOGY ORDERABLES F inal Result Performing Organization Address City/State/[facility] Co de Phone Number [facility] [address] [place] [address] * (ABNORMAL) BASIC METABOLIC PANEL (CALCIUM TOTAL) (06/10/2024 4:45 AM FIELD SERVICES ANALYST) Glucose 107(H) 70 - 99 mg/dL 06/10/2024 5:25 AM [facility] Sodium 139 136 - 145 mmol/L 06/10/2024 5:25 AM [facility] Potassium 3.4(L) 3.5 - 5.1 mmol/L 06/10/2024 5:25 AM [facility] Chloride 107 98 - 107 mmol/L 06/10/2024 5:25 AM [facility] CO2 22 22 - 29 mmol/L 06/10/2024 5:25 AM [facility] Calcium 8.2(L) 8.4 - 10.4 mg/dL 06/10/2024 5:25 AM [facility] Anion Gap 10 6 - 16 mmol/L 06/10/2024 5:25 AM [facility] BUN 15 7 - 26 mg/dL 06/10/2024 5:25 AM [facility] Creatinine 0.70(L) 0.72 - 1.25 mg/dL 06/10/2024 5:25 AM [facility] eGFR by CKD-EPI >90 >=90 mL/min/1.7 3 m2 06/10/2024 5:25 AM [facility] Blood BLOOD SPECIMEN / Unknown Venipuncture / Unknown 06/10/2024 4:45 AM FIELD SERVICES ANALYST 06/10/2024 5:01 AM FIELD SERVICES ANALYST Olimpia No MD LAB - CHEMISTRY ORDERABLES Fi nal Result Performing Organization Address [facility] de Phone Number [facility] [address] [place] [address] * TSH REFLEX FREE T4 (06/09/2024 1:59 AM FIELD SERVICES ANALYST) Pathologist [facility] TSH 0.559 0.350 - 4.940 uIU/mL 06/09/2024 2:56 AM [facility] Blood BLOOD SPECIMEN / Unknown Venipuncture / Unknown 06/09/2024 1:59 AM FIELD SERVICES ANALYST 06/09/2024 2:15 AM FIELD SERVICES ANALYST us López Yeager MD LAB - CHEMISTRY ORDERABLES Anastasiya l Result Performing Organization Address [facility] Co de Phone Number [facility] [address] [place] [address] * (ABNORMAL) HEMOGLOBIN A1C (06/09/2024 1:59 AM FIELD SERVICES ANALYST) Hemoglobin A1c 9.1(H) <5.7 % 06/09/2024 2:28 AM [facility] Estimated Average Glucose 214 mg/dL 06/09/2024 2:28 AM [facility] Blood BLOOD SPECIMEN / Unknown Venipuncture / Unknown 06/09/2024 1:59 AM FIELD SERVICES ANALYST 06/09/2024 2:15 AM FIELD SERVICES ANALYST [facility] - 06/09/2024 2:28 AM FIELD SERVICES ANALYST HbA1c Interpretation: Normal: < 5.7% Pre-diabetes: 5.7-6.4% [...] method. López Yeager MD LAB - CHEMISTRY ORDERABLES Anastasiya l Result Performing Organization Address City/State/[facility] Co de Phone Number [facility] [address] [place] [address] * (ABNORMAL) COMPREHENSIVE METABOLIC PANEL (06/09/2024 1:59 AM FIELD SERVICES ANALYST) Only the most recent of2 resultswithin the time period is included. Glucose 220(H) 70 - 99 mg/dL 06/09/2024 3:01 AM [facility] Sodium 134(L) 136 - 145 mmol/L 06/09/2024 3:01 AM [facility] Potassium 4.2 3.5 - 5.1 mmol/L 06/09/2024 3:01 AM [facility] Chloride 104 98 - 107 mmol/L 06/09/2024 3:01 AM [facility] CO2 21(L) 22 - 29 mmol/L 06/09/2024 3:01 AM [facility] Calcium 8.1(L) 8.4 - 10.4 mg/dL 06/09/2024 3:01 AM [facility] Anion Gap 9 6 - 16 mmol/L 06/09/2024 3:01 AM [facility] BUN 18 7 - 26 mg/dL 06/09/2024 3:01 AM [facility] Creatinine 0.85 0.72 - 1.25 mg/dL 06/09/2024 3:01 AM [facility] Alkaline Phosphatase 65 40 - 150 U/L 06/09/2024 3:01 AM [facility] ALT 14 0 - 55 U/L 06/09/2024 3:01 AM [facility] AST 50(H) 5 - 34 U/L 06/09/2024 3:01 AM [facility] Protein Total 5.8(L) 6.4 - 8.3 gm/dL 06/09/2024 3:01 AM [facility] Albumin 2.8(L) 3.4 - 5.0 gm/dL 06/09/2024 3:01 AM [facility] Bilirubin Total 3.2(H) 0.2 - 1.2 mg/dL 06/09/2024 3:01 AM [facility] eGFR by CKD-EPI >90 >=90 mL/min/1.7 3 m2 06/09/2024 3:01 AM [facility] Blood BLOOD SPECIMEN / Unknown Venipuncture / Unknown 06/09/2024 1:59 AM [facility] 06/09/2024 2:15 AM [facility] us López Yeager MD LAB - CHEMISTRY ORDERABLES Anastasiya enciso Result [facility] [address] [place] [address] * PHOSPHORUS BLOOD (06/09/2024 1:59 AM [facility]) Phosphorus 3.1 2.5 - 4.5 mg/dL 06/09/2024 2:40 AM FIELD SERVICES ANALYST [facility] Blood BLOOD SPECIMEN / Unknown Venipuncture / Unknown 06/09/2024 1:59 AM FIELD SERVICES ANALYST 06/09/2024 2:15 AM FIELD SERVICES ANALYST López Yeagre MD LAB - CHEMISTRY ORDERABLES Anastasiya l Result Performing Organization Address [facility]/ZIP Co de Phone Number [facility] [id number] [place] [address] * MAGNESIUM BLOOD (06/09/2024 1:59 AM FIELD SERVICES ANALYST) Only the most recent of2 resultswithin the time period is included. Magnesium 1.7 1.6 - 2.6 mg/dL 06/09/2024 2:40 AM [facility] Blood BLOOD SPECIMEN / Unknown Venipuncture / Unknown 06/09/2024 1:59 AM FIELD SERVICES ANALYST 06/09/2024 2:15 AM FIELD SERVICES ANALYST López Yeager MD LAB - CHEMISTRY ORDERABLES Anastasiya l Result Performing Organization Address [facility] de Phone Number [facility] [id number] [place] [address] * (ABNORMAL) LIPID PROFILE (06/09/2024 1:59 AM FIELD SERVICES ANALYST) Cholesterol 69 <200 mg/dL 06/09/2024 2:40 AM [facility] Triglycerides 99 <150 mg/dL 06/09/2024 2:40 AM [facility] HDL Cholesterol 19(L) >40 mg/dL 2:40 AM [facility] LDL Calculated 30 <130 mg/dL 06/09/2024 2:40 AM [facility] VLDL Calculated 20 <=30 mg/dL 2:40 AM [facility] Chol HDL Ratio 3.6 <4.5 06/09/2024 2:40 AM [facility] LDL/HDL Ratio 1.6 <5.0 06/09/2024 2:40 AM [facility] Blood BLOOD SPECIMEN / Unknown Venipuncture / Unknown 06/09/2024 1:59 AM FIELD SERVICES ANALYST 06/09/2024 2:15 AM FIELD SERVICES ANALYST López Yeager MD LAB - CHEMISTRY ORDERABLES Anastasiya enciso Result [facility] [address] [place] [address] * XR Chest 1Vw Portable (06/08/2024 5:04 PM FIELD SERVICES ANALYST) Anatomical Region Laterality Modality Chest Computed Radiogr aphy 06/08/2024 6:49 PM FIELD SERVICES ANALYST Impressions 06/08/2024 6:50 PM FIELD SERVICES ANALYST IMPRESSION: No acute disease in the chest. Borderline cardiomegaly. > Interpreting Provider: Harry England MD on 06/08/2024 6:50 PM Narrative 06/08/2024 6:50 PM FIELD SERVICES ANALYST PROCEDURE: XR CHEST 1VW PORTABLE DATE/TIME OF [...] silhouette. There are no definite pleural effusions. quality assurance monitor final wires obscure the chest bilaterally. Procedure Note [...] 6:50 PM López Yeager MD DIAGNOSTIC IMAGING ORDERABLES F inal Result * (ABNORMAL) TROPONIN-I HIGH SENSITIVE (06/08/2024 4:39 PM FIELD SERVICES ANALYST) [facility] Troponin I High Sensitive 54(H) <=35 ng/L 06/08/2024 5:21 PM FIELD SERVICES ANALYST [facility] Blood BLOOD SPECIMEN / Unknown Venipuncture / Unknown 06/08/2024 4:39 PM FIELD SERVICES ANALYST 06/08/2024 4:55 PM FIELD SERVICES ANALYST López Yeager MD LAB - CHEMISTRY ORDERABLES Anastasiya l Result [facility] [address] [place] [id number] * (ABNORMAL) CBC W AUTO DIFFERENTIAL (06/08/2024 4:39 PM FIELD SERVICES ANALYST) [facility] WBC 4.2 4.0 - 10.7 x10E9/L 06/08/2024 5:12 PM FIELD SERVICES ANALYST [facility] RBC Count 5.01 4.30 - 5.80 x10E12/L 06/08/2024 5:12 PM [facility] Hemoglobin 14.8 13.3 - 17.5 g/dL 06/08/2024 5:12 PM [facility] Hematocrit 42.1 38.7 - 51.1 % 06/08/2024 5:12 PM [facility] MCV 84.0 80.0 - 98.0 fL 06/08/2024 5:12 PM FIELD SERVICES ANALYST [facility] MCH 29.5 26.7 - 33.6 pg 06/08/2024 5:12 PM FIELD SERVICES ANALYST [facility] MCHC 35.2 31.7 - 36.3 g/dL 06/08/2024 5:12 PM [facility] RDW-CV 15.9(H) 11.3 - 14.8 % 06/08/2024 5:12 PM FIELD SERVICES ANALYST [facility] Platelet Count 67(L) 150 - 420 x10E9/L 06/08/2024 5:12 PM [facility] MPV 10.4 7.8 - 11.4 fL 06/08/2024 5:12 PM [facility] Neutrophil % 67.5 41.0 - 74.0 % 06/08/2024 5:12 PM [facility] Lymphocyte % 15.4(L) 17.0 - 47.0 % 06/08/2024 5:12 PM [facility] Monocyte % 15.9(H) 3.0 - 11.0 % 06/08/2024 5:12 PM [facility] Eosinophil % 0.0 0.0 - 7.0 % 06/08/2024 5:12 PM [facility] Basophil % 0.7 0.0 - 1.6 % 06/08/2024 5:12 PM [facility] Immature Granulocytes % 0.5 0.0 - 1.0 % 06/08/2024 5:12 PM [facility] Neutrophil Absolute 2.80 1.60 - 7.50 x10E9/L 06/08/2024 5:12 PM [facility] Lymphocyte Absolute 0.64(L) 1.00 - 4.40 x10E9/L 06/08/2024 5:12 PM [facility] Monocyte Absolute 0.66 0.15 - 1.00 x10E9/L 06/08/2024 5:12 PM [facility] Eosinophil Absolute 0.00 0.00 - 0.60 x10E9/L 06/08/2024 5:12 PM [facility] Basophil Absolute 0.03 0.00 - 0.13 x10E9/L 06/08/2024 5:12 PM [facility] Blood BLOOD SPECIMEN / Unknown Venipuncture / Unknown 06/08/2024 4:39 PM FIELD SERVICES ANALYST 06/08/2024 4:55 PM FIELD SERVICES ANALYST us López Yeager MD LAB - HEMATOLOGY ORDERABLES Fin al Result [facility] [address] [place] [address] * (ABNORMAL) B-TYPE NATRIURETIC PEPTIDE (06/08/2024 4:39 PM FIELD SERVICES ANALYST) BNP 345(H) <=100 pg/mL 06/08/2024 5:19 PM FIELD SERVICES ANALYST [facility] Blood BLOOD SPECIMEN / Unknown Venipuncture / Unknown 06/08/2024 4:39 PM FIELD SERVICES ANALYST 06/08/2024 4:55 PM FIELD SERVICES ANALYST López Yeager MD LAB - CHEMISTRY ORDERABLES Anastasiya enciso Result [facility] [address] [place] [address] from Last 3 Months Insurance MEDICAID [employer] [place] Advance Directives * Full Code (Latest Code Status on File) Date Activated Date Inactivated Comments 06/08/2024 3:48 PM 06/10/2024 7:18 PM Care Teams Tableau Report Developer Relationship Specialty Start Date End Date Braydon Pavon PA [address] [place] [address] PCP - General Physician Route Sales Delivery Drivers Supervisor 07/14/23
--- OUTSIDE RECORDS SUMMARY | 2024-08-19 21:07 | XMS_ITS | Clinical Summary ---
Author Organization [facility] Address [address] Valenzuelan: Epic Prelude ADT [place] [address] Care Team Providers Care Sexer Name Role Phone Carlos Mcdonnell DO Primary Care Provider Unava ilable Allergies No known active allergies Medications No known medications Encounters Date Type Department Care Team Description 06/30/2024 8:59 PM AUTOMATION CONTROLS SPECIALIST - 06/30/2024 11:11 PM AUTOMATION CONTROLS SPECIALIST Emergency [facility] Emergency Department [address] [place] [address] Gerry Caal DO Encounter for [...] on file Legal Sex Male 6:23 AM AUTOMATION CONTROLS SPECIALIST Gender Identity Not on file Sexual Orientation Not on file Last Filed Vital Signs Vital Sign Reading Time Taken Comments Blood Pressure 147/78 06/30/2024 10:10 PM AUT[employer]ATION CONTROLS SPECIALIST Pulse 89 06/30/2024 10:55 PM AUT[employer]ATION CONTROLS SPECIALIST Temperature 36.4 C (97.5 F) 06/30/2024 5:45 PM AUT[employer]ATION CONTROLS SPECIALIST Respiratory Rate 13 06/30/2024 10:55 PM AUT[employer]ATION CONTROLS SPECIALIST Oxygen Saturation 96% 06/30/2024 10:55 PM AUTOMATION CONTROLS SPECIALIST Inhaled Oxygen Concentration - - Weight - [...] Diagnosis Comments LIPASE Stat 06/30/2024 9:40 PM AUTOMATION CONTROLS SPECIALIST COMPREHENSIVE METABOLIC PANEL Stat 06/30/2024 9:40 PM AUTOMATION CONTROLS SPECIALIST VERIFICATION BLOOD GROUP Stat 06/30/2024 9:39 PM AUTOMATION CONTROLS SPECIALIST Encounter for blood typing PROTIME-INR Stat 06/30/2024 9:39 PM AUTOMATION CONTROLS SPECIALIST EXTRA TUBE (BLUE) Stat 06/30/2024 9:3 9 PM AUTOMATION CONTROLS SPECIALIST EXTRA TUBE Stat 06/30/2024 9:39 PM AUTOMATION CONTROLS SPECIALIST TYPE AND SCREEN Stat 06/30/2024 6:10 PM AUTOMATION CONTROLS SPECIALIST CBC WITH DIFFERENTIAL Stat 06/30/2024 6:10 PM AUTOMATION CONTROLS SPECIALIST from Last 3 Months Results * LIPASE (06/30/2024 9:40 PM AUTOMATION CONTROLS SPECIALIST) Pathologist [facility] LIPASE 17 13 - 60 U/L 06/30/2024 10:40 PM AUTOMATION CONTROLS SPECIALIST [facility] Blood Venipuncture / Unknown 06/30/2024 9:40 PM AUTOMATION CONTROLS SPECIALIST 06/30/2024 10:08 PM AUTOMATION CONTROLS SPECIALIST Gerry Caal DO CHEMISTRY ORDERABLES Final Resu lt [facility] CLIA# [id number] [place] [address] * (ABNORMAL) COMPREHENSIVE METABOLIC PANEL (06/30/2024 9:40 PM AUTOMATION CONTROLS SPECIALIST) Pathologist [facility] SODIUM 137 136 - 145 mmol/L 06/30/2024 10:47 PM [facility] POTASSIUM 4.0 3.4 - 5.1 mmol/L 06/30/2024 10:47 PM [facility] CHLORIDE 98 98 - 107 mmol/L 06/30/2024 10:47 PM [facility] CO2 25 22 - 29 mmol/L 06/30/2024 10:47 PM [facility] CALCIUM 9.8 8.6 - 10.4 mg/dL 06/30/2024 10:47 PM [facility] BUN 17 6 - 20 mg/dL 06/30/2024 10:47 PM [facility] CREATININE 0.78 0.67 - 1.17 mg/dL 06/30/2024 10:47 PM [facility] GLUCOSE 450(HH) 74 - 99 mg/dL 06/30/2024 10:47 PM [facility] TOTAL PROTEIN 7.0 6.3 - 8.7 g/dL 06/30/2024 10:47 PM [facility] ALBUMIN 3.8 3.5 - 5.2 g/dL 06/30/2024 10:47 PM [facility] BILIRUBIN TOTAL 4.0(H) 0.3 - 1.2 mg/dL 06/30/2024 10:47 PM [facility] ALKALINE PHOSPHATASE 94 40 - 150 U/L 06/30/2024 10:47 PM [facility] AST 24 0 - 41 U/L 06/30/2024 10:47 PM [facility] ALT 13 0 - 41 U/L 06/30/2024 10:47 PM [facility] GFR >60 >=60 mL/min/1.7 3 sq meter 06/30/2024 10:47 PM [facility] Comment:eGFR calculated with 2020 CKD-EPI equation. Vegetarian diet, extremely high or low muscle mass, and may affect results. Cystatin C with Glomerular Filtration Rate is a suitable alternative for these patients. ANION GAP 14 8 - 16 mmol/L 06/30/2024 10:47 PM [facility] Blood Venipuncture / Unknown 06/30/2024 9:40 PM AUT[employer]ATION CONTROLS SPECIALIST 06/30/2024 10:08 PM AUTOMATION CONTROLS SPECIALIST Gerry Caal DO CHEMISTRY ORDERABLES Final Resu lt Performing Organization Address [facility]/ZIP Co de Phone Number [facility] CLIA# [id number] [place] [address] * EXTRA TUBE (BLUE) (06/30/2024 9:39 PM AUTOMATION CONTROLS SPECIALIST) Blood Venipuncture / Unknown 06/30/2024 9:39 PM AUTOMATION CONTROLS SPECIALIST 06/30/2024 10:57 PM AUT[employer] CONTROLS SPECIALIST Gerry Caal DO HEMATOLOGY ORDERABLES Final Res ult [facility] CLIA# [id number] [place] [address] * VERIFICATION BLOOD GROUP (06/30/2024 9:39 PM AUTOMATION CONTROLS SPECIALIST) ABO GROUP A 06/30/2024 11:11 PM AUTOMATION CONTROLS SPECIALIST [facility] RH (D) TYPE Positive 06/30/2024 11:11 PM AUTOMATION CONTROLS SPECIALIST [facility] Blood Venipuncture / Unknown 06/30/2024 9:39 PM AUTOMATION CONTROLS SPECIALIST 06/30/2024 10:07 PM AUTOMATION CONTROLS SPECIALIST Carlos Mcdonnell DO BLOOD BANK ORDERABLES Final Result [facility] [id number] [place] [address] * (ABNORMAL) PROTIME-INR (06/30/2024 9:39 PM AUTOMATION CONTROLS SPECIALIST) Pathologist [facility] PROTIME 15.0(H) 11.5 - 14.7 Seconds 06/30/2024 11:05 PM AUTOMATION CONTROLS SPECIALIST [facility] INR 1.2(H) 0.9 - 1.1 06/30/2024 11:05 PM AUTOMATION CONTROLS SPECIALIST [facility] Blood Venipuncture / Unknown 06/30/2024 9:39 PM AUTOMATION CONTROLS SPECIALIST 06/30/2024 10:57 PM AUTOMATION CONTROLS SPECIALIST Gerry Caal DO HEMATOLOGY ORDERABLES Final Res ult [facility] CLIA# [id number] [place] [address] * (ABNORMAL) CBC WITH DIFFERENTIAL (06/30/2024 6:10 PM AUTOMATION CONTROLS SPECIALIST) WBC 5.3 4.0 - 9.8 K/uL 06/30/2024 6:48 PM AUTOMATION CONTROLS SPECIALIST [facility] Video[employer]f [facility] RBC 5.86(H) 4.50 - 5.40 M/uL 06/30/2024 6:48 PM [facility] HEMOGLOBIN 16.8(H) 13.6 - 16.5 g/dL 06/30/2024 6:48 PM [facility] HEMATOCRIT 48.6(H) 40.0 - 48.0 % 06/30/2024 6:48 PM [facility] MCV 82.9 82.0 - 99.0 fL 06/30/2024 6:48 PM [facility] MCH 28.7 27.2 - 32.6 pg 06/30/2024 6:48 PM [facility] MCHC 34.6 31.5 - 35.5 g/dL 06/30/2024 6:48 PM [facility] RDW 16.9(H) 11.5 - 14.5 % 06/30/2024 6:48 PM [facility] RDW-STDEV 46.3 37.1 - 48.7 fL 06/30/2024 6:48 PM [facility] PLATELETS 78(L) 140 - 350 K/uL 06/30/2024 6:48 PM [facility] MPV 06/30/2024 6:48 PM [facility] Comment:Parameter not availa ble NEUTROPHILS 70 % 06/30/2024 6:48 PM [facility] LYMPHOCYTES 16 % 06/30/2024 6:48 PM [facility] MONOCYTES 9 % 06/30/2024 6:48 PM [facility] EOSINOPHILS 3 % 06/30/2024 6:48 PM [facility] BASOPHILS 1 % 06/30/2024 6:48 PM [facility] IMMATURE GRANULOCYTES 1 % 06/30/2024 6:48 PM [facility] Comment:IG (Immature Granulo cyte) count includes Metamyelocytes, Myelocytes, and Promyelocytes NEUTROPHIL ABSOLUTE 3.73 1.90 - 7.00 K/uL 06/30/2024 6:48 PM [facility] LYMPHOCYTE ABSOLUTE 0.86 0.70 - 4.50 K/uL 06/30/2024 6:48 PM AUTOMATION CONTROLS SPECIALIST [facility] MONOCYTE ABSOLUTE 0.47 0.10 - 1.30 K/uL 06/30/2024 6:48 PM AUTOMATION CONTROLS SPECIALIST [facility] EOSINOPHIL ABSOLUTE 0.18 0.00 - 0.70 K/uL 06/30/2024 6:48 PM AUTOMATION CONTROLS SPECIALIST [facility] BASOPHILS ABSOLUTE 0.07 0.00 - 0.20 K/uL 06/30/2024 6:48 PM AUTOMATION CONTROLS SPECIALIST [facility] IMMATURE GRANULOCYTES ABSOLUTE 0.03 0.00 - 0.03 K/uL 06/30/2024 6:48 PM AUTOMATION CONTROLS SPECIALIST [facility] Blood Venipuncture / Unknown 06/30/2024 6:10 PM AUTOMATION CONTROLS SPECIALIST 06/30/2024 6:40 PM AUTOMATION CONTROLS SPECIALIST Gerry Caal DO HEMATOLOGY ORDERABLES Final Res ult [facility] CLIA# [id number] [address] [place] [address] * TYPE AND SCREEN (06/30/2024 6:10 PM AUTOMATION CONTROLS SPECIALIST) ABO GROUP A 06/30/2024 7:40 PM AUTOMATION CONTROLS SPECIALIST [facility] RH (D) TYPE Positive 06/30/2024 7:40 PM AUTOMATION CONTROLS SPECIALIST [facility] ANTIBODY SCREEN Negative 06/30/2024 7:40 PM AUTOMATION CONTROLS SPECIALIST [facility] Blood Venipuncture / Unknown 06/30/2024 6:10 PM AUTOMATION CONTROLS SPECIALIST 06/30/2024 6:31 PM AUTOMATION CONTROLS SPECIALIST Gerry Caal DO BLOOD BANK ORDERABLES Edited Re sult - Final [facility] CLIA# [id number] [place] [address] from Last 3 Months Insurance [facility] MEDICAID Care Teams Sexer Relationship Specialty Start Date End Date Carlos Mcdonnell DO PCP - General 11/18/07
[2024-08-19 21:08] VITALS: BP 140/80; PULSE 102; RESP 19; TEMP 36.1; O2SAT 95
--- OUTSIDE RECORDS SUMMARY | 2024-08-19 21:08 | XMS_ITS | Encounter Summary ---
Author Organization [facility] Address [address] [place] [address] Care Team Providers Care Plexiglas Former Name Role Phone None, Provider Primary Care Provider Braydon Piedra Primary Care Provider [phone] Encounter Details Date Type Department Care Team (Late Contact Info) Description 10/09/2018 Abstract SFL CONVERSION [address] [place] [address] , Generic Conversion, Social History [...] Description 08/30/2024 12:00 PM CDT Office Visit [facility] Diabetes and Endocrinology - [address] [address] Eva Power MD [address] [place] [address] [phone] documented as of this encounter Visit Diagnoses Not on filedocumented in this encounter Care Teams Plexiglas Former Relationship Specialty Start Date End Date None, ProviderMD PCP - General 02/08/19 03/01/19 Braydon Pavon PA [address] [place] [address] PCP - General PHYSICIAN JOB PLACEMENT COUNSELOR 03/02/19 documented as of this encounter
--- OUTSIDE RECORDS SUMMARY | 2024-08-19 21:08 | XMS_ITS | Clinical Summary ---
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 Use to [...] 05/20/2021 Assessment & Plan (05/22/2021 3:58 PM METER TESTER POLYPHASE): A initial well visit to establish care [...] unless otherwise indicated. Need follow-up arranged with glue mixer, drop hammer pile driver operator Planning on referral to paint stockman Will need to check in to the tips follow-up Labs as ordered today, I will direct the A1 c to his drop hammer pile driver operator's office. Continuing the current regimen for now. Blood pressure is controlled at this time. We may need to try to get the stress test done as well. Screen for colon cancer 03/01/2021 Overview (03/01/2021): Added automatically from request for surgery [id number] Diabetic neuropathy associat ed with type 2 diabetes mellitus 10/29/2020 Assessment & Plan (10/29/2020 4:23 PM CDT): Chronic, worsening Start, gabapentin therapy Work on better diabetic control Vitamin D deficiency 10/29/2020 Assessment & Plan (10/29/2020 4:23 PM CDT): Check labs and based on that for the plans Bacterial endocarditis 05/14/2020 Assessment & Plan (05/14/2020 11:09 AM METER TESTER POLYPHASE): Unfortunately the patient's records from [facility] are [...] 05/14/2020 Assessment & Plan (05/14/2020 11:11 AM METER TESTER POLYPHASE): The patient's dyspnea on exertion is likely [...] resume home regimen and follow-up with home drop hammer pile driver operator MATHEUS pain 10/11/2017 Morbid obesity 12/09/2016 TRACY (obstructive sleep apnea) 09/14/2016 Thrombocytopenia 09/14/2016 Esophageal varices 09/09/2016 Hepatic encephalopathy 09/09/2016 History of upper gastrointestinal hemorrhage 01/2016 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 s/p TIPS in 2016. -RUQ today showing TIPS with slower velocity compared to 08/2017 but still patent, rec close FU. -rifaximin -holding lactulose for diarrhea -should have BB outpt Assessment & Plan (02/02/2018 6:29 PM CDT): Management per primary team Encounters Date Type Department Care Team Description 07/06/2024 Documentation [facility] [address] [place] [address] Advanced Medicine 12th [place] [address] [place] [address] Sean Rodas, BETHANY 07/05/2024 9:40 AM METER TESTER POLYPHASE - 07/05/2024 11:59 PM METER TESTER POLYPHASE Hospital Encounter [facility] ([facility]) [address] [place] [address] Hepatic cirrhosis, unspecified hepatic cirrhosis type, unspecified whether ascites present (HCC) Discharge Disposition: Discharge to home or self care 07/05/2024 Results Follow-Up [facility] [address] [place] [address] Advanced Medicine [facility] [place] [address] [place] [address] Nilton Whatley MD 06/02/2024 8:55 AM METER TESTER POLYPHASE Lab [facility] ([facility]) [address] [place] [id number] Hepatic cirrhosis, unspecified hepatic cirrhosis type, unspecified whether ascites present (HCC) 06/02/2024 8:00 AM METER TESTER POLYPHASE Office Visit [facility] [address] [place] [address] Advanced Medicine 12th [place] [address] [place] [address] Nilton Whatley MD Hepatic cirrhosis, unspecified hepatic [...] on file Legal Sex Male 2:52 PM METER TESTER POLYPHASE Gender Identity Male 10/29/2020 12:37 PM CDT Sexual Orientation Straight 10/29/2020 12 :37 PM CDT Obstetrics History Last Filed Vital Signs Vital Sign Reading Time Taken Comments Blood Pressure 117/76 06/02/2024 7:36 AM METER TESTER POLYPHASE Pulse 88 06/02/2024 7:36 AM METER TESTER POLYPHASE Temperature 36.7 C (98.1 F) 06/02/2024 7:36 AM METER TESTER POLYPHASE Respiratory Rate 17 01/20/2024 12:0 0 PM CDT Oxygen Saturation 92% 06/02/2024 7:36 AM METER TESTER POLYPHASE Inhaled Oxygen Concentration - - Weight 103.1 kg (227 lb 6.4 oz) 06/02/2024 7:36 AM METER TESTER POLYPHASE Height 172.7 cm (5' 8 ) 11/23/2023 [...] Completed 08/23/2015 Medical Devices Implanted Type Area Valve Technician Device Identifier Shelf Expiration Date Model / Serial / Lot [employer] [id number] Lifestar 14mm 60mm 80cm Stent Biliary - [id number] Implanted:Qty: 1 on 01/10/2021 at [facility] [employer] 09/15/2023 [id number] / / [id number] Procedures Procedure Name Priority Date/Time Associated Diagnosis Comments US LIVER W COMPLETE DOPPLER Schedule Routine, Read Routine (OP Routine) 07/05/2024 11:25 AM METER TESTER POLYPHASE Hepatic cirrhosis, unspecified hepatic cirrhosis type, unspecified whether ascites present (HCC) EGFR Routine 06/02/2024 8:48 AM METER TESTER POLYPHASE Hepatic cirrhosis, unspecified hepatic cirrhosis type, unspecified whether ascites present (HCC) COMPREHENSIVE METABOLIC PANEL Routine 06/02/2024 8:48 AM METER TESTER POLYPHASE Hepatic cirrhosis, unspecified hepatic cirrhosis type, unspecified whether ascites present (HCC) PROTIME-INR Routine 06/02/2024 8:48 AM METER TESTER POLYPHASE Hepatic cirrhosis, unspecified hepatic cirrhosis type, unspecified whether ascites present (HCC) [id number], TUMOR MARKER Routine 06/02/2024 8:48 AM METER TESTER POLYPHASE Hepatic cirrhosis, unspecified hepatic cirrhosis type, unspecified whether ascites present (HCC) BILIRUBIN, DIRECT Routine 06/02/2024 8:4 8 AM METER TESTER POLYPHASE Hepatic cirrhosis, unspecified hepatic cirrhosis type, unspecified whether ascites present (HCC) HEMOGLOBIN A1C STAT 11/23/2023 8:40 AM CDT LIPID PANEL Routine 05/20/2021 9:36 AM METER TESTER POLYPHASE Morbid obesity with body mass index (BMI) of 40.0 to 44.9 in adult (HCC) ALBUMIN CREATININE RATIO, URINE Routine 05/20/2021 9:36 AM METER TESTER POLYPHASE Diabetic neuropathy associated with type 2 diabetes mellitus (HCC) COLONOSCOPY 12/17/2020 10:24 AM CDT SERUM HEPATITIS PANEL Routine 08/23/2015 5:23 PM CDT from Last 3 Months or Most Recently Relevant to Health Maintenance Results * US Liver W Complete Doppler (C) (07/05/2024 11:25 AM METER TESTER POLYPHASE) Anatomical Region Laterality Modality Abdomen N/A Ultrasound 07/05/2024 11:3 7 AM METER TESTER POLYPHASE Impressions 07/05/2024 11:57 AM METER TESTER POLYPHASE 1. Sonographic features of cirrhosis. 2. US [...] Maurice Paul M.D. Narrative 07/05/2024 11:57 AM METER TESTER POLYPHASE EXAMINATION: 1. LIVER SONOGRAM 2. LIVER DOPPLER [...] modality depending on risk factors. Dictated by: Chiot Hagen M.D. The radiology attending physician has personally reviewed this study, and had reviewed and/or edited this written report and agrees with it. Electronically signed by: Maurice Paul M.D. us Nilton Whatley MD IMG US PROCEDURES Final Re sult * eGFR (06/02/2024 8:48 AM METER TESTER POLYPHASE) eGFR >90 >=60 mL/min/1. 73 m2 Comment: [...] last reviewed 2021. Blood 06/02/2024 8:48 AM METER TESTER POLYPHASE 06/02/2024 9:05 AM METER TESTER POLYPHASE Nilton Whatley MD LAB BLOOD ORDERABLES Final Result Performing Organization Address City/State/[facility] Co or Phone Number [facility] [place] [address] * [id number], Tumor Marker (06/02/2024 8:48 AM METER TESTER POLYPHASE) alpha Fetoprotein <2.0 <=8.3 ng/mL Comment: Interpretive [...] 2018;[id number] Jeyson Sanches et al. Clin Chem 2014;[id number]. Current interpretive data was last revised 2022. Blood 06/02/2024 8:48 AM METER TESTER POLYPHASE 06/02/2024 9:00 AM METER TESTER POLYPHASE us Nilton Whatley MD LAB BLOOD ORDERABLES Final Result [facility] [place] [address] * (ABNORMAL) Protime-INR (06/02/2024 8:48 AM METER TESTER POLYPHASE) PT 13.5(H) 9.7 - 13.0 sec INR 1.24(H) 0.90 - 1.20 [facility] Comment: Interpretive data Oral anticoagulant therapeutic ranges: Venous thromboembolism prophylaxis or treatment: 2.0-3.0 CARDIOLOGY Standard range: 2.0-3.0 High-intensity range: 2.5-3.5 Refer to indication-specific guidelines for appropriate target ranges for prosthetic heart valve replacement. Current interpretive data was last revised on 2019. Blood 06/02/2024 8:48 AM METER TESTER POLYPHASE 06/02/2024 9:00 AM METER TESTER POLYPHASE us Nilton Whatley MD LAB BLOOD ORDERABLES Final Result Performing Organization Address City/[facility] Co de Phone Number [facility] [place] [address] * (ABNORMAL) Bilirubin, direct (06/02/2024 8:48 AM METER TESTER POLYPHASE) Bilirubin, direct 0.6(H) 0.1 - 0.3 mg/dL Comment:Hemolyzed; result ma y be falsely decreased Blood 06/02/2024 8:48 AM METER TESTER POLYPHASE 06/02/2024 9:00 AM METER TESTER POLYPHASE us Nilton Whatley MD LAB BLOOD ORDERABLES Final Result Performing Organization Address City/[facility] Co de Phone Number [facility] Department [place] [address] * (ABNORMAL) Comprehensive metabolic panel (06/02/2024 8:48 AM METER TESTER POLYPHASE) Sodium 141 135 - 145 mmol/L Potassium, pl 4.3 3.3 - 4.9 mmol/L [facility] Comment:Hemolyzed; Potassium value may be falsely elevated by as much as 0.3-0.5 mmol/L. Suggest redraw and reanalysis. Chloride 107 97 - 110 mmol/L [facility] CO2 27 22 - 32 mmol/L [facility] Anion gap 7 2 - 15 mmol/L [facility] BUN 13 6 - 25 mg/dL [facility] Creatinine 0.76(L) 0.80 - 1.30 mg/dL [facility] Glucose 242(H) 70 - 199 mg/dL [facility] Comment: Interpretive Data Fasting glucose >/= [...] 2022. Calcium 9.6 8.5 - 10.3 mg/dL [facility] Bilirubin, total 3.0(H) 0.1 - 1.2 mg/dL [facility] Protein, pl 6.9 6.5 - 8.5 g/dL [facility] Albumin 3.8 3.5 - 5.0 g/dL [facility] Alk phos 90 40 - 130 Units/L [facility] ALT 19 7 - 55 Units/L [facility] AST 38 10 - 50 Units/L [facility] Comment:Hemolyzed; result ma y be falsely elevated Blood 06/02/2024 8:48 AM METER TESTER POLYPHASE 06/02/2024 9:00 AM METER TESTER POLYPHASE Nilton Whatley MD LAB BLOOD ORDERABLES Final Result Performing Organization Address City/[facility] Co de Phone Number [facility] Department [place] [address] * Albumin Creatinine Ratio, Urine (05/20/2021 9:36 AM METER TESTER POLYPHASE) Albumin Ur <12.0 mg/L [facility] Comment: Interpretive Data No reference range established. Current interpretive data was last revised 2018. Creatinine Ur 47.6 mg/dL [facility] Comment: Interpretive Data No reference range established. Current interpretive data was last revised 2018. Albumin Creatinine Ratio, Ur <25 1 - 29 mg/g [facility] Urine 05/20/2021 9:36 AM METER TESTER POLYPHASE 05/20/2021 7:41 PM METER TESTER POLYPHASE Simon Lundberg MD LAB URINE ORDERABLES Final Result Performing Organization Address City/[facility] Co de Phone Number [facility] [address] [facility] Department [place] [address] * (ABNORMAL) Lipid panel (05/20/2021 9:36 AM METER TESTER POLYPHASE) Cholesterol 110 30 - 199 mg/dL [facility] [...] 3 [facility] MICHELLE Blood 05/20/2021 9:36 AM METER TESTER POLYPHASE 05/20/2021 7:41 PM METER TESTER POLYPHASE Simon Lundberg MD LAB BLOOD ORDERABLES Final Result [facility] [address] [facility] Department [place] [address] * COLONOSCOPY (12/17/2020 10:24 AM CDT) Anatomical Region Laterality Modality Other Narrative Procedure Note Elian Gross MD - 12/17/2020 10:24 AM CDT ENDOSCOPY LAB Patient Name: Camilo Curry Procedure Date: 12/17/2020 10:24 AM Date of : 1970 Admit Type: Outpatient Age: 50 Gender: Male Attending MD: Elian Vivar M.D. Room: [facility] ENDOSCOPY ROOM 02 Note Status: [...] the physician, the nurse, the anesthesiologist, the curator of photography and prints and thetechnician in the pre-procedure area in [...] The scope was passed under direct vision.The [id number] was introduced through the anusand advanced to the hepatic flexure. The colonoscopywas performed without difficulty. The patient tolerated the procedure well. The quality of the bowel preparation was unsatisfactory. The quality of the bowel preparation was evaluated using the BBPS([place] Bowel Preparation Scale) with scores of: RightColon [...] 10:24 AM us Elian Draper MD ENDOSCOPY MS OCEDURES Final Result * Serum Hepatitis panel (08/23/2015 5:23 PM CDT) HBV surface ag Negative NEG HISTO RICAL RESULTS HCV ab Negative NEG HISTORICAL RESULTS Comment: Interpretive Data If confirmation is required, call Laboratory Customer Service to request sample to be sent to [facility] for Hepatitis C Virus (HCV) RNA Detection and Quantitation by Real-Time Reverse Clinical Specialist Medical Device-PCR (RT-PCR). Current interpretive data was last revised [...] Recently Relevant to Health Maintenance Insurance [employer] [facility] [employer] [facility] [employer] [facility] Advance Directives For more information, please contact: [phone] * Full Code (Latest Code Status on [...] 11:57 AM 02/03/2018 5:26 AM Care Teams Entry Level Automotive Technician Relationship Specialty Start Date End Date Braydon Pavon PA [address] [place] [address] PCP - General 08/23/21 [place] [id number] [address] [facility] [address], [place] [address] Consulting Physician Endocrinology 05/20/21 [place] [address] [address] [facility] [address] [place] [address] Consulting Physician Internal Medicine 05/20/21
--- OUTSIDE RECORDS SUMMARY | 2024-08-19 21:08 | XMS_ITS | Encounter Summary ---
Author Organization [facility] Address [facility] [facility] [place] [address] Care Team Providers Care Speech Communication Instructor Name Role Phone Braydon Pavon Primary Care Provider [phone] Nikolay Lancaster MD Primary Care Provider [phone] Braydon Pavon Primary Care Provider [phone] Reason for Visit * Reason Onset Date Comments MEDICATION REFILL 09/08/2018 Encounter Details Date Type Department Care Team (Late st Contact Info) Description 09/08/2018 Refill [facility] [address] [facility] [place] [address] Edmond Choi MD [address] [facility] [address] [facility] [address] MEDICATION REFILL Social History Tobacco Use Types Packs/Day Years Used Date Smoking Tobacco: Former Smokeless Tobacco: Never Alcohol Use Standard Drinks/Week Comments No 0 (1 standard drink = 0.6 oz pur e alcohol) Sex and Gender Information Value Date Recorded Sex Assigned at Not on file Legal Sex Male 8:18 AM CREDIT PROCESSOR Gender Identity Not on file Sexual Orientation Not on file documented as of this encounter Plan of Treatment Not on file documented as of this encounter Visit Diagnoses Not on filedocumented in this encounter Additional Health Concerns Infection Onset Date Last Indicated Resolved Time COVID-19 Under Investigation 06/08/2024 06/08/2024 06/08/2024 4:31 PM CREDIT PROCESSOR Influenza A or B Comment:OSH result 06/08/2024 06/09/2024 06/15/2024 4:[address] documented as of this encounter Care Teams Speech Communication Instructor Relationship Specialty Start Date End Date Braydon Pavon PA [address] [place] [address] PCP - General Physician Can Doffer 05/19/18 10/03/18 Nikolay Lancaster MD [address] [place] [address] PCP - General 10/04/18 07/13/23 Braydon Pavon PA [address] [place] [address] PCP - General Physician Can Doffer 07/14/23 documented as of this encounter
--- OUTSIDE RECORDS SUMMARY | 2024-08-19 21:08 | XMS_ITS | Referral Summary ---
Author Organization [facility] Address [address] [place] [address] Care Team Providers Care Survival Specialist Name Role Phone Nacho Rodriguez MD Unavailable [phone] Elian Gross MD Unavailable Braydon Pavon Primary Care Provider [phone] Encounters Date Type Department Care Team Description 07/06/2024 Documentation [facility] G[facility]enterology [address] [facility] 12th [place] [address] [place] [address] Sean Rodas RN 07/05/2024 Results Follow-Up [facility] [address] [facility] 12th [place] [address] [place] [address] Nilton Whatley MD 07/05/2024 9:40 AM MUSICAL INSTRUMENT SUPERVISOR - 07/05/2024 11:59 PM MUSICAL INSTRUMENT SUPERVISOR Hospital Encounter [facility] [address] [place] [id number] Hepatic cirrhosis, unspecified hepatic cirrhosis type, unspecified whether ascites present (HCC) Discharge Disposition: Discharge to home or self care 06/02/2024 8:55 AM MUSICAL INSTRUMENT SUPERVISOR Lab [facility] ([facility]) [address] [place] [phone] Hepatic cirrhosis, unspecified hepatic cirrhosis type, unspecified whether ascites present (HCC) 06/02/2024 8:00 AM MUSICAL INSTRUMENT SUPERVISOR Office Visit [facility] [address] 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 Use to [...] 05/20/2021 Assessment & Plan (05/22/2021 3:58 PM MUSICAL INSTRUMENT SUPERVISOR): A initial well visit to establish [...] unless otherwise indicated. Need follow-up arranged with safety professional, gun number Planning on referral to boat painter Will need to check in to the tips follow-up Labs as ordered today, I will direct the A1 c to his gun number's office. Continuing the current regimen for now. Blood pressure is controlled at this time. We may need to try to get the stress test done as well. Screen for colon cancer 03/01/2021 Overview (03/01/2021): Added automatically from request for surgery [id number] Diabetic neuropathy associat ed with type 2 diabetes mellitus 10/29/2020 Assessment & Plan (10/29/2020 4:23 PM CDT): Chronic, worsening Start, gabapentin therapy Work on better diabetic control Vitamin D deficiency 10/29/2020 Assessment & Plan (10/29/2020 4:23 PM CDT): Check labs and based on that for the plans Bacterial endocarditis 05/14/2020 Assessment & Plan (05/14/2020 11:09 AM MUSICAL INSTRUMENT SUPERVISOR): Unfortunately the patient's records from [facility] are not available for my review. We [...] 05/14/2020 Assessment & Plan (05/14/2020 11:11 AM MUSICAL INSTRUMENT SUPERVISOR): The patient's dyspnea on exertion is [...] follow up in 6 weeks with MANAGER UTILITIES Chelsea Driscoll ( to discuss about insulin [...] resume home regimen and follow-up with home gun number MATHEUS pain 10/11/2017 Morbid obesity 12/09/2016 TRACY [...] on file Legal Sex Male 2:52 PM MUSICAL INSTRUMENT SUPERVISOR Gender Identity Male 10/29/2020 12:37 PM CDT Sexual Orientation Straight 10/29/2020 12 :37 PM CDT Last Filed Vital Signs Vital Sign Reading Time Taken Comments Blood Pressure 117/76 06/02/2024 7:36 AM MUSICAL INSTRUMENT SUPERVISOR Pulse 88 06/02/2024 7:36 AM MUSICAL INSTRUMENT SUPERVISOR Temperature 36.7 C (98.1 F) 06/02/2024 7:36 AM MUSICAL INSTRUMENT SUPERVISOR Respiratory Rate 17 01/20/2024 12:0 0 PM CDT Oxygen Saturation 92% 06/02/2024 7:36 AM MUSICAL INSTRUMENT SUPERVISOR Inhaled Oxygen Concentration - - Weight 103.1 kg (227 lb 6.4 oz) 06/02/2024 7:36 AM MUSICAL INSTRUMENT SUPERVISOR Height 172.7 cm (5' 8 ) 11/23/2023 7:53 AM CDT Body Mass Index 34.58 11/23/2023 7:53 AM CDT Plan of Treatment Not on file Medical Devices Implanted Type Area Plug And Mold Finisher Device Identifier Shelf Expiration Date Model / Serial / Lot Bard Peripheral Vascular [id number] Lifestar 14mm 60mm 80cm Stent Biliary - [id number] Implanted:Qty: 1 on 01/10/2021 at [facility] [employer] Peripheral Vascular 09/15/2023 [id number] / / [id number] Procedures Procedure Name Priority Date/Time Associated Diagnosis Comments US LIVER W COMPLETE DOPPLER Schedule Routine, Read Routine (OP Routine) 07/05/2024 11:25 AM MUSICAL INSTRUMENT SUPERVISOR Hepatic cirrhosis, unspecified hepatic cirrhosis type, unspecified whether ascites present (HCC) EGFR Routine 06/02/2024 8:48 AM MUSICAL INSTRUMENT SUPERVISOR Hepatic cirrhosis, unspecified hepatic cirrhosis type, unspecified whether ascites present (HCC) COMPREHENSIVE METABOLIC PANEL Routine 06/02/2024 8:48 AM MUSICAL INSTRUMENT SUPERVISOR Hepatic cirrhosis, unspecified hepatic cirrhosis type, unspecified whether ascites present (HCC) PROTIME-INR Routine 06/02/2024 8:48 AM MUSICAL INSTRUMENT SUPERVISOR Hepatic cirrhosis, unspecified hepatic cirrhosis type, unspecified whether ascites present (HCC) [id number], TUMOR MARKER Routine 06/02/2024 8:48 AM MUSICAL INSTRUMENT SUPERVISOR Hepatic cirrhosis, unspecified hepatic cirrhosis type, unspecified whether ascites present (HCC) BILIRUBIN, DIRECT Routine 06/02/2024 8:4 8 AM MUSICAL INSTRUMENT SUPERVISOR Hepatic cirrhosis, unspecified hepatic cirrhosis type, unspecified whether ascites present (HCC) HEMOGLOBIN A1C STAT 11/23/2023 8:40 AM CDT LIPID PANEL Routine 05/20/2021 9:36 AM MUSICAL INSTRUMENT SUPERVISOR Morbid obesity with body mass index (BMI) of 40.0 to 44.9 in adult (HCC) ALBUMIN CREATININE RATIO, URINE Routine 05/20/2021 9:36 AM MUSICAL INSTRUMENT SUPERVISOR Diabetic neuropathy associated with type 2 diabetes mellitus (HCC) COLONOSCOPY 12/17/2020 10:24 AM CDT SERUM HEPATITIS PANEL Routine 08/23/2015 5:23 PM CDT from Last 3 Months or Most Recently Relevant to Health Maintenance Results * US Liver W Complete Doppler (C) (07/05/2024 11:25 AM MUSICAL INSTRUMENT SUPERVISOR) Anatomical Region Laterality Modality Abdomen N/A Ultrasound 07/05/2024 11:3 7 AM MUSICAL INSTRUMENT SUPERVISOR Impressions 07/05/2024 11:57 AM MUSICAL INSTRUMENT SUPERVISOR 1. Sonographic features of cirrhosis. 2. US [...] Maurice Paul M.D. Narrative 07/05/2024 11:57 AM MUSICAL INSTRUMENT SUPERVISOR EXAMINATION: 1. LIVER SONOGRAM 2. LIVER DOPPLER [...] Re sult * eGFR (06/02/2024 8:48 AM MUSICAL INSTRUMENT SUPERVISOR) eGFR >90 >=60 mL/min/1. 73 m2 Comment: [...] last reviewed 2021. Blood 06/02/2024 8:48 AM MUSICAL INSTRUMENT SUPERVISOR 06/02/2024 9:05 AM MUSICAL INSTRUMENT SUPERVISOR us Nilton Whatley MD LAB BLOOD ORDERABLES Final Result [facility] Department [place] [address] * [id number], Tumor Marker (06/02/2024 8:48 AM MUSICAL INSTRUMENT SUPERVISOR) alpha Fetoprotein <2.0 <=8.3 ng/mL Comment: Interpretive [...] 2018;[id number] Jeyson Sanches et al. Clin Chem 2014;[id number]. Current interpretive data was last revised 2022. Blood 06/02/2024 8:48 AM MUSICAL INSTRUMENT SUPERVISOR 06/02/2024 9:00 AM MUSICAL INSTRUMENT SUPERVISOR us Nilton M. Korenblat MD LAB BLOOD ORDERABLES Final Result [facility] Department [place] [address] * (ABNORMAL) Protime-INR (06/02/2024 8:48 AM MUSICAL INSTRUMENT SUPERVISOR) PT 13.5(H) 9.7 - 13.0 sec INR 1.24(H) 0.90 - 1.20 [facility] Comment: Interpretive data Oral anticoagulant therapeutic ranges: Venous thromboembolism prophylaxis or treatment: 2.0-3.0 CARDIOLOGY Standard range: 2.0-3.0 High-intensity range: 2.5-3.5 Refer to indication-specific guidelines for appropriate target ranges for prosthetic heart valve replacement. Current interpretive data was last revised on 2019. Blood 06/02/2024 8:48 AM MUSICAL INSTRUMENT SUPERVISOR 06/02/2024 9:00 AM MUSICAL INSTRUMENT SUPERVISOR us Nilton Whatley MD LAB BLOOD ORDERABLES Final Result Performing Organization Address [facility] Co de Phone Number [facility] [place] [address] * (ABNORMAL) Bilirubin, direct (06/02/2024 8:48 AM MUSICAL INSTRUMENT SUPERVISOR) Pathologist [facility] Bilirubin, direct 0.6(H) 0.1 - 0.3 mg/dL Comment:Hemolyzed; result ma y be falsely decreased Blood 06/02/2024 8:48 AM MUSICAL INSTRUMENT SUPERVISOR 06/02/2024 9:00 AM MUSICAL INSTRUMENT SUPERVISOR us Nilton Whatley MD LAB BLOOD ORDERABLES Final Result Performing Organization Address City/State/[facility] Co de Phone Number [facility] [place] [address] * (ABNORMAL) Comprehensive metabolic panel (06/02/2024 8:48 AM MUSICAL INSTRUMENT SUPERVISOR) Pathologist [facility] Sodium 141 135 - 145 mmol/L Potassium, pl 4.3 3.3 - 4.9 mmol/L [facility] Comment:Hemolyzed; Potassium value may be falsely elevated by as much as 0.3-0.5 mmol/L. Suggest redraw and reanalysis. Chloride 107 97 - 110 mmol/L [facility] CO2 27 22 - 32 mmol/L [facility] Anion gap 7 2 - 15 mmol/L [facility] BUN 13 6 - 25 mg/dL [facility] Creatinine 0.76(L) 0.80 - 1.30 mg/dL [facility] Glucose 242(H) 70 - 199 mg/dL [facility] Comment: Interpretive Data Fasting glucose >/= [...] 2022. Calcium 9.6 8.5 - 10.3 mg/dL [facility] Bilirubin, total 3.0(H) 0.1 - 1.2 mg/dL [facility] Protein, pl 6.9 6.5 - 8.5 g/dL [facility] Albumin 3.8 3.5 - 5.0 g/dL [facility] Alk phos 90 40 - 130 Units/L [facility] ALT 19 7 - 55 Units/L [facility] AST 38 10 - 50 Units/L [facility] Comment:Hemolyzed; result ma y be falsely elevated Blood 06/02/2024 8:48 AM MUSICAL INSTRUMENT SUPERVISOR 06/02/2024 9:00 AM MUSICAL INSTRUMENT SUPERVISOR Nilton Whatley MD LAB BLOOD ORDERABLES Final Result [facility] Department [place] [address] * Albumin Creatinine Ratio, Urine (05/20/2021 9:36 AM MUSICAL INSTRUMENT SUPERVISOR) Albumin Ur <12.0 mg/L [facility] Comment: Interpretive Data No reference range established. Current interpretive data was last revised 2018. Creatinine Ur 47.6 mg/dL [facility] Comment: Interpretive Data No reference range established. Current interpretive data was last revised 2018. Albumin Creatinine Ratio, Ur <25 1 - 29 mg/g [facility] Urine 05/20/2021 9:36 AM MUSICAL INSTRUMENT SUPERVISOR 05/20/2021 7:41 PM MUSICAL INSTRUMENT SUPERVISOR us Simon Lundberg MD LAB URINE ORDERABLES Final Result [facility] [address] Department [place] [address] * (ABNORMAL) Lipid panel (05/20/2021 9:36 AM MUSICAL INSTRUMENT SUPERVISOR) Cholesterol 110 30 - 199 mg/dL [...] ratio 3 [facility] Blood 05/20/2021 9:36 AM MUSICAL INSTRUMENT SUPERVISOR 05/20/2021 7:41 PM MUSICAL INSTRUMENT SUPERVISOR us Simon Lundberg MD LAB BLOOD ORDERABLES Final Result Performing Organization Address City/State/[place] [address] [facility] Department [place] [address] * COLONOSCOPY (12/17/2020 10:24 AM CDT) Anatomical Region Laterality Modality Other Narrative Procedure Note Elian Gross MD - 12/17/2020 10:24 AM CDT ENDOSCOPY LAB Patient Name: Camilo Curry Procedure Date: 12/17/2020 10:24 AM Date of : 1970 Admit Type: Outpatient Age: 50 Gender: Male Attending MD: Elian Vivar M.D. Room: [facility] ENDOSCOPY ROOM 02 Note Status: [...] the physician, the nurse, the anesthesiologist, the kennel attendant and thetechnician in the pre-procedure area in [...] The scope was passed under direct vision.The [id number] was introduced through the anusand advanced to the hepatic flexure. The colonoscopywas performed without difficulty. The patient tolerated the procedure well. The quality of the bowel preparation was unsatisfactory. The quality of the bowel preparation was evaluated using the BBPS([place] Bowel Preparation Scale) with scores of: RightColon [...] 12/17/2020 10:24 AM Elian Draper MD ENDOSCOPY IN OCEDURES Final Result * Serum Hepatitis panel (08/23/2015 5:23 PM CDT) HBV surface ag Negative NEG HISTO RICAL RESULTS HCV ab Negative NEG HISTORICAL RESULTS Comment: Interpretive Data If confirmation is required, call Laboratory Customer Service to request sample to be sent to [facility] for Hepatitis C Virus (HCV) RNA Detection and Quantitation by Real-Time Reverse Cutter Helper-PCR (RT-PCR). Current interpretive data was last revised [...] us Historical Provider LAB BLOOD ORDERABLES Anastasiya encios Result HISTORICAL RESULTS from Last 3 Months or Most Recently Relevant to Health Maintenance [facility] [place] Advance Directives For more information, please contact: [phone] * Full Code (Latest Code Status on [...] 11:57 AM 02/03/2018 5:26 AM Care Teams Survival Specialist Relationship Specialty Start Date End Date Braydon Pavon PA [address] [place] [address] PCP - General 08/23/21 [place] [address] [address] [facility] [address], [place] [address] Consulting Physician Endocrinology 05/20/21 [place] [address] [address] [facility] [address], [place] [address] Consulting Physician Internal Medicine 05/20/21
--- NOTE | 2024-08-19 21:10 | PC.NURSE ---
DR CANALES AT THE BE
--- NOTE | 2024-08-19 21:20 | ED_ITS ---
HPI - Back Pain/Injury General Chief Complaint: Back Pain/Injury Stated Complaint: back pain Time Seen by Provider: 08/19/24 21:19 Source: patient Mode of arrival: ambulatory Limitations: no limitations History of Present Illness HPI Narrative: 53 years old white male came from home by private car complaining of upper and lower back pain with spasm that started few hours ago after working on a car all day long. History of chronic back pain. Patient reported that his chronic back pain with radiation to lower extremity bilaterally worse than before working on the car. Patient denies bowel dysfunction, bladder dysfunction, altered sensation, focal weakness, or saddle numbness, Related Data Home Medications ?Medication ?Instructions ?Recorded ?Confirmed ?Last Taken ?Type albuterol sulfate 90 mcg/actuation 2 puff inhalation Q8-10H PRN 02/19/20 03/22/24 Unknown History aerosol inhaler Wheezing alprazolam 1 mg tablet 0.5 mg PO TID PRN Anxiety 09/04/20 03/22/24 Unknown History ondansetron HCl 4 mg tablet 4 mg PO BID PRN Nausea 09/04/20 03/22/24 Unknown History liraglutide 0.6 mg/0.1 mL (18 mg/3 See Rx Instructions .Route .COMPLEX 03/05/21 03/22/24 Unknown History mL) subcutaneous pen injector (IntelensavannahSpruik 3-Anatoliy) hydroxyzine HCl 25 mg tablet 25 mg PO QID 06/20/23 03/22/24 Unknown History trazodone 100 mg tablet 100 mg PO BID 06/20/23 03/22/24 Unknown History blood sugar diagnostic (OneTouch 02/23/24 03/22/24 Unknown History Ultra Test strips) blood-glucose sensor (Dexcom G7 02/23/24 03/22/24 Unknown History Sensor device) carvedilol 3.125 mg tablet 3.125 mg PO DAILY 02/23/24 03/22/24 Unknown History dulaglutide 0.75 mg/0.5 mL 0.75 mg subcut DAILY 02/23/24 03/22/24 Unknown Histor y subcutaneous pen injector (Huong) duloxetine 30 mg capsule,delayed 30 mg PO DAILY 02/23/24 03/22/24 Unknown History release famotidine 20 mg tablet 20 mg PO DAILY 02/23/24 03/22/24 Unknown History hydrochlorothiazide 25 mg tablet 25 mg PO DAILY 02/23/24 03/22/24 Unknown History hydrocodone 10 mg-acetaminophen 10 - 325 tablet PO DAILY 02/23/24 03/22/24 Unknown History 325 mg tablet insulin glargine 100 unit/mL (3 100 unit subcut DIRECTED 02/23/24 03/22/24 Unknown History mL) subcutaneous pen (Lantus Solostar U-100 Insulin) insulin lispro 100 unit/mL 100 unit subcut DIRECTED 02/23/24 03/22/24 Unknown History subcutaneous pen (Humalog KwikPen (U-100) Insulin) insulin regular hum U-500 conc 500 500 unit subcut DIRECTED 02/23/24 03/22/24 Unknown History unit/mL(3 mL) subcut pen (Humulin R U-500 (Conc) Insulin Kwikpen) lactulose 10 gram/15 mL oral 10 g PO DAILY 02/23/24 03/22/24 Unknown History solution (Enulose) metformin 500 mg tablet,extended 500 mg PO DAILY 02/23/24 03/22/24 Unknown History release 24 hr pen needle, diabetic 31 gauge x 02/23/24 03/22/24 Unknown History 09/16 (TRUEplus Pen Needle) pregabalin 200 mg capsule 200 mg PO DAILY 02/23/24 03/22/24 Unknown History Allergies Allergy/AdvReac Type Severity Reaction Status Date / Time aztreonam (Azactam) Allergy Intermediate Unknown Verified 06/08/24 07:33 ciprofloxacin (Cipro) Allergy Intermediate Unknown Verified 06/08/24 07:33 esomeprazole (Nexium) Allergy Intermediate Unknown Verified 06/08/24 07:33 octreotide Allergy Intermediate Unknown Verified 06/08/24 07:33 sulfanilamide Allergy Intermediate Unknown Verified 06/08/24 07:33 erythromycin base Allergy Unknown Unknown Verified 06/08/24 07:33 Penicillins Allergy Unknown Unknown Verified 06/08/24 07:33 Sulfa (Sulfonamide Allergy Unknown Unknown Verified 06/08/24 07:33 Antibiotics) duloxetine Allergy Unknown Verified 06/08/24 07:33 magnesium Allergy Unknown Verified 06/08/24 07:33 nisoldipine Allergy Unknown Verified 06/08/24 07:33 prochlorperazine Allergy Unknown Verified 06/08/24 07:33 IVP dye Allergy Intermediate Unknown Uncoded 06/08/24 07:33 Contrast Media Allergy Unknown Unknown Uncoded 06/08/24 07:33 Review of Systems Review of Systems: All systems reviewed & are unremarkable except as noted in HPI and below PMFSH Past Medical History Medical History Chronic back pain Diabetes mellitus type 2 in obese Hepatic encephalopathy GI bleeding GERD (gastroesophageal reflux disease) Varices, esophageal Liver failure Surgical History Surgical History S/P TIPS (transjugular intrahepatic portosystemic shunt) Social History Social History Smoking status: Former smoker Alcohol intake: never Substance use: never Living arrangements: with family Exam Narrative: General appearance: Well-developed, well-nourished Skin: Normal color Head: Normocephalic, nontraumatic Eyes: Clear conjunctiva ENT: Oropharynx normal, ears normal, nose normal Neck: Supple, nontender Chest and respiratory: Airway patent, no respiratory distress, no accessory muscle use Heart: Regular rate/rhythm Abdomen: Soft, nontender, no organomegaly, quiet bowel sounds Vascular: Normal peripheral pulses, normal capillary refill. Musculoskeletal: diffuse tenderness all over the back upper middle and lower, limited range of motion all over. No bruises, no swelling or rash Neurologic: Alert and oriented ?3, DIAMOND SIZER is normal as tested, no gross motor deficit Course Vital Signs Vital signs: Vital Signs Temperature 36.1 C L 08/19/24 21:08 Pulse Rate 102 H 08/19/24 21:08 Respiratory Rate 19 08/19/24 21:08 Blood Pressure 140/80 08/19/24 21:08 Pulse Oximetry 95 08/19/24 21:08 Oxygen Delivery Room Air 08/19/24 21:08 Temperature 36.1 C L 08/19/24 21:08 Pulse Rate 102 H 08/19/24 21:08 Respiratory Rate 19 08/19/24 21:08 Blood Pressure 140/80 08/19/24 21:08 Pulse Oximetry 95 08/19/24 21:08 Oxygen Delivery Room Air 08/19/24 21:08 Critical Care Time Critical Care Time Critical Care Time: No Discharge Plan Discharge Clinical Impression: Back pain Patient Disposition: Home Condition: Stable Instructions: Back Pain (ED) Additional Instructions: Return if symptoms are worsening , call your family physician for appointment, take Tylenol as as needed for aches and pain, continue home medications. Patient Language: Greenlandic Prescriptions: No Action albuterol sulfate 90 mcg/actuation HFA aerosol inhaler 2 puff INHALATION Q8-10H PRN (Reason: Wheezing) alprazolam 1 mg tablet 0.5 mg PO TID PRN (Reason: Anxiety) ondansetron HCl 4 mg tablet 4 mg PO BID PRN (Reason: Nausea) cyclobenzaprine 10 mg tablet 10 mg PO TID PRN (Reason: muscle spasm) Qty: 20 0RF liraglutide [Victoza 3-Anatoliy] 0.6 mg/0.1 mL (18 mg/3 mL) pen injector See Rx Instructions .ROUTE .COMPLEX Rx Instructions: . Lagevrio (EUA) 200 mg capsule 800 mg PO Q12H 5 Days Qty: 40 0RF trazodone 100 mg tablet 100 mg PO BID hydroxyzine HCl 25 mg tablet 25 mg PO QID naproxen 500 mg tablet 500 mg PO BID PRN (Reason: pain) Qty: 14 0RF Rx Instructions: take with meals methocarbamol 750 mg tablet 1,500 mg PO TID Qty: 45 0RF triamcinolone acetonide 0.1 % ointment 1 applic topical TID 7 Days Qty: 15 0RF (DME) OneTouch Ultra Test Strip MISCELLANEOUS hydrocodone-acetaminophen 10-325 mg tablet 10 - 325 tablet PO DAILY carvedilol 3.125 mg tablet 3.125 mg PO DAILY famotidine 20 mg tablet 20 mg PO DAILY hydrochlorothiazide 25 mg tablet 25 mg PO DAILY metformin 500 mg tablet extended release 24 hr 500 mg PO DAILY insulin lispro [Humalog KwikPen Insulin] 100 unit/mL insulin pen 100 unit SUBCUT DIRECTED (DME) pen needle, diabetic [TRUEplus Pen Needle] 31 gauge x 5/16 needle MISCELLANEOUS duloxetine 30 mg capsule,delayed release(DR/EC) 30 mg PO DAILY lactulose [Enulose] 10 gram/15 mL solution 10 g PO DAILY pregabalin 200 mg capsule 200 mg PO DAILY insulin glargine [Lantus Solostar U-100 Insulin] 100 unit/mL (3 mL) insulin pen 100 unit SUBCUT DIRECTED (DME) Dexcom G7 Sensor Device MISCELLANEOUS Trulicity 0.75 mg/0.5 mL pen injector 0.75 mg SUBCUT DAILY Humulin R U-500 (Conc) Kwikpen 500 unit/mL (3 mL) insulin pen 500 unit SUBCUT DIRECTED cyclobenzaprine 10 mg tablet 10 mg PO TID PRN (Reason: muscle spasm) Qty: 20 0RF omeprazole 20 mg capsule,delayed release(DR/EC) 20 mg PO BID Qty: 60 0RF Follow-up/Referrals: Librado,SONALI Huizar [Primary Care Provider] -
[2024-08-19] MEDS: ONDANSETRON HCL ODT 4 MG TABLET PO (21:26)
[2024-08-19] MEDS: HYDROmorphone HCL INJ (*CRX) 2 MG/ML VIAL 1 MG IM (21:28)
--- OUTSIDE RECORDS SUMMARY | 2024-08-19 21:40 | XMS_ITS | Encounter Summary ---
Author Organization [facility] Address [address] [place] [address] Care Team Providers Care Postdoctoral Scientist Name Role Phone None, Provider Primary Care Provider Braydon Piedra Primary Care Provider [phone] Encounter Details Date Type Department Care Team (Late Contact Info) Description 10/09/2018 Abstract [facility]FL CONVERSION [address] [place] [address] , Generic Conversion, Social History [...] Description 08/30/2024 12:00 PM CDT Office Visit [facility] Diabetes and Endocrinology - [address] [address] Eva Power MD [address] [place] [address] [id number] documented as of this encounter Visit Diagnoses Not on filedocumented in this encounter Care Teams Postdoctoral Scientist Relationship Specialty Start Date End Date None, ProviderMD PCP - General 02/08/19 03/01/19 Braydon Pavon PA [address] [place] [address] PCP - General PHYSICIAN EXECUTIVE MANAGER 03/02/19 documented as of this encounter
--- OUTSIDE RECORDS SUMMARY | 2024-08-19 21:40 | XMS_ITS | Clinical Summary ---
Author Organization [facility] Address [address] [place] [address] Care Team Providers Care Malthouse Laborer Name Role Phone Braydon Pavon Primary Care Provider [phone] Allergies Active Allergy Reactions Criticality Noted Date [...] (two) times daily. Active vitamin D2, ergocalciferol, 20316 UNITS capsule Take 1 capsule (50,000 Units total) by mouth every 30 (thirty) days. Active Insulin Pen Needle (PEN NEEDLES) 32G X 4 MM Misc Inject 3 times daily 08/04/19 20 Active ONE TOUCH ULTRA TEST STRIPS test stripIndications:T ype 2 diabetes mellitus with hyperglycemia, with long-term current use of insulin ([facility]) Test 4 times daily 200 strip 11 [...] hyperglycemia, with long-term current use of insulin ([facility]) Inject 0.4 mLs (200 Units total) into the skin 3 (three) times daily before meals. 18 mL 11 02/19/20 24 Active Additional Information Patient taking differently:200 Units Subcutaneous 3 times daily before meals,Pt taking 200 units three times, Reported on 05/31/2024 Continuous Glucose Sensor (Consensus Point G7 SENSOR) MiscIndications:Ty pe 2 diabetes mellitus with hyperglycemia, with long-term current use of insulin ([facility]) CHANGE SENSOR EVERY 10 DAYS 3 [...] hyperglycemia, with long-term current use of insulin ([facility]) Take 1 tablet (500 mg total) by mouth daily with supper. 90 tablet 1 05/31/19 25 Active Active Problems Problem Noted Date Diagnosed Date Diabetic neuropathy associat ed with type 2 diabetes mellitus ([facility]) 10/29/2020 Lumbar degenerative disc disease 05/23/2019 Essential hypertension 07/21/2018 TRACY (obstructive sleep apnea) 09/14/2016 Thrombocytopenia 09/14/2016 Esophageal varices (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 s/p TIPS in 2015. -RUQ today showing TIPS with slower velocity compared to 08/2017 but still patent, rec close FU. -rifaximin -holding lactulose for diarrhea -should have BB outpt Resolved Problems Problem Noted Date Diagnosed Date Resolved Date Bacterial endocarditis ([facility]) 05/14/2020 06/05/2024 BLAND (nonalcoholic steatohepatitis) 07/21/2018 04/05/2019 Diabetes mellitus, type 2 ([facility]) 02/02/2018 06/05/2024 Morbid obesity 12/09/2016 06/05/2024 History of upper gastrointestinal hemorrhage 6 04/05/2019 Encounters Date Type Department Care Team Description 05/31/2024 12:00 PM CALL CENTER COORDINATOR Office Visit [facility] Diabetes and Endocrinology - [address] [phone] Eva Power MD Type 2 [...] Comments Blood Pressure 134/77 05/31/2024 8:59 AM CALL CENTER COORDINATOR Pulse 84 05/31/2024 8:47 AM CALL CENTER COORDINATOR Temperature 36.8 C (98.3 F) 02/15/2024 1:54 PM CDT Respiratory Rate 11 01/23/2024 12:30 AM CDT Oxygen Saturation 96% 05/31/2024 8:47 AM CALL CENTER COORDINATOR Inhaled Oxygen Concentration - - Weight 100.2 kg (221 lb) 02/15/2024 1:54 PM CDT Height 172.7 cm (5' 8 ) 05/31/2024 8:47 AM CALL CENTER COORDINATOR Body Mass Index 33.6 02/15/2024 1:54 PM CDT Plan of Treatment Upcoming Encounters Date Type Department Care Team (Late st Contact Info) Description 08/30/2024 12:00 PM CDT Office Visit [facility] Diabetes and Endocrinology - [address] [phone] Eva Power MD [address] [place] [id number] Health Maintenance Due Date Last Done [...] ( season) 2024 12/29/2020, 12/08/2020 PHQ-2 (Physician [place]) 05/04/2024 02/15/2024 Hemoglobin A1C 08/29/2024 05/31/2024, 11/02, [...] this topic Medical Devices Implanted Type Area Cement Handler Device Identifier Shelf Expiration Date Model / Serial / Lot [employer] Stent-01/02/2021 Implanted: 021 (Quantity not on file) Stent Abdomen [employer] [id number] / / Description:Non-clinical silvia ting demonstrated that [...] field of 720 Gauss/cm or less Maximum gjjra-hrvs-lymbpxzy specific absorption rate (IVANA) of 2-W/kg for 15 minutes of scanning for patient landmarks above the umbilicus. Maximum WB-IVANA of 1 W/kg for 15 min. of scanning for patient landmarks below the umbilicus. Procedures Procedure Name Priority Date/Time Associated Diagnosis Comments ALBUMIN URINE RANDOM W/CREATININE Routine 05/31/2024 10:36 AM CALL CENTER COORDINATOR Type 2 diabetes mellitus with hyperglycemia, with long-term current use of insulin ([facility]) COLLECT.CAPILLARY (FNGR,HEEL,EAR) Routine 05/31/2024 8:47 AM CALL CENTER COORDINATOR Type 2 diabetes mellitus with hyperglycemia, with long-term current use of insulin ([facility]) GLUCOSE BLOOD, MONITOR DEVICE Routine 05/31/2024 Type 2 diabetes mellitus with hyperglycemia, with long-term current use of insulin ([facility]) HEMOGLOBIN, GLYCOSYLATED Routine 05/31/2024 Type 2 diabetes mellitus with hyperglycemia, with long-term current use of insulin ([facility]) from Last 3 Months Results * ALBUMIN/CREATININE RATIO, RANDOM URINE (05/31/2024 10:36 AM CALL CENTER COORDINATOR) Pathologist [facility] MICROALBUMIN (U) 10.4 <20 MG/L 05/31/19 7:37 PM CALL CENTER COORDINATOR [facility] CREATININE RANDOM (U) 47.4 MG/DL 05/31/2024 7:37 PM CALL CENTER COORDINATOR [facility] ALBUMIN/CREAT RATIO 21.9 <30 MG/G 05/31/2024 7:37 PM CALL CENTER COORDINATOR [facility] UR[facility]CIMEN / Unknown 05/31/2024 10:36 AM CALL CENTER COORDINATOR Eva Power MD URINE ORDERABLES Final Result [facility] [address] [place] [address], [place] [phone] * HEMOGLOBIN, GLYCOSYLATED (05/31/2024) [facility] HGB A1C 10.3 % [address] [place] 05/31/2024 Eva Power MD LABORATORY Final Result [address] [place] [address] [place] [address], [place] [phone] * (ABNORMAL) GLUCOSE BLOOD, MONITOR DEVICE (05/31/2024) Pathologist [facility] GLUCOSE WHOLE BLOOD 323(A) 70 - 100 mg/dL [address] [place] 05/31/2024 us Eva Power MD LABORATORY Final Result [facility], [email or web address] [address], [place] [phone] from Last 3 Months Insurance AET Care Teams Malthouse Laborer Relationship Specialty Start Date End Date Braydon Pavon PA [address] [place] [address] PCP - General PHYSICIAN SAFETY PIN ASSEMBLING MACHINE OPERATOR 03/02/19
--- OUTSIDE RECORDS SUMMARY | 2024-08-19 21:40 | XMS_ITS | Clinical Summary ---
Author Organization [facility] Address [address] [place] [address] Care Team Providers Care Campaign Marketing Specialist Name Role Phone Braydon Pavon Primary Care Provider [phone] Source Comments [facility],non-owned Affiliates and Associated Physician Practices is amultiple site organization consisting of ambulatory clinics and hospital sitesin [place], [place], [place] and [place]. This disclosure is being madepursuant to the Care Everywhere program and may not contain all information available regarding this patient. Last updated 18.[facility] [employer] Allergies Active Allergy Reactions Criticality Noted Date [...] WC - CONFIRMED WITH [facility] [phone], Reason: Provider adjusted, Reported on 06/09/2024 blood [...] dissolve on the tongue Active HYDROcodone-ac etaminophen (Mode) 10-325 MG tablet Take 1 (one) tablet [...] Insulin Regular Human (HUMULIN R U-500 IKPEN [place]) Inject 200 Units subcutaneously 3 times [...] Department Care Team Description 06/08/2024 3:27 PM [facility] - 06/10/2024 3:30 PM [facility] Hospital Encounter [facility] [address]N Tele[id number] [place] [address] Louie Hi MD Fatima, Noor E, [...] care, and heating? Not very hard 06/08/2024 [facility] [place] [facility] - Occupational Stress [...] [facility] the [facility] or living in a [facility] (including now)? No 06/08/2024 Sex and Gender Information Value Date Recorded Sex Assigned at Not on file Legal Sex Male 8:18 AM [facility] Gender Identity Not on file Sexual Orientation Not on file Last Filed Vital Signs Vital Sign Reading Time Taken Comments Blood Pressure 110/69 06/10/2024 3:45 PM [facility] Pulse 81 06/10/2024 3:45 PM [facility] Temperature 36.8 C (98.2 F) 06/10/2024 3:45 PM [facility] Respiratory Rate 19 06/10/2024 3:45 PM [facility] Oxygen Saturation 94% 06/10/2024 3:45 PM [facility] Inhaled Oxygen Concentration - - Weight 99.8 kg (220 lb) 06/08/2024 3:47 PM [facility] Height 170.2 cm (5' 7 ) 06/08/2024 3:47 PM [facility] Body Mass Index 34.46 06/08/2024 3:47 PM [facility] Plan of Treatment Health Maintenance Due Date [...] CARDIAC RHYTHM STRIP ORDER 06/13/2024 10:53 PM [facility] ECHO COMPLETE W CONTRAST Routine 06/10/2024 1:18 PM [facility] Acute congestive heart failure, unspecified heart failure type GLUCOSE - POINT OF CARE Routine 06/10/2024 12:48 PM [facility] GLUCOSE - POINT OF CARE Routine 06/10/2024 7:58 AM [facility] GLUCOSE - POINT OF CARE Routine 06/10/2024 7:14 AM [facility] GLUCOSE - POINT OF CARE Routine 06/10/2024 6:41 AM [facility] BASIC METABOLIC PANEL (CALCIUM TOTAL) AM Draw 06/10/2024 4:45 AM [facility] CBC W/O DIFFERENTIAL AM Draw 06/10/2024 4:45 AM [facility] GLUCOSE - POINT OF CARE Routine 06/09/2024 9:38 PM [facility] GLUCOSE - POINT OF CARE Routine 06/09/2024 5:17 PM [facility] GLUCOSE - POINT OF CARE Routine 06/09/2024 12:40 PM [facility] PT EVAL AND TREAT Routine 06/09/2024 12: 04 PM [facility] GLUCOSE - POINT OF CARE Routine 06/09/2024 7:48 AM [facility] GLUCOSE - POINT OF CARE Routine 06/09/2024 6:07 AM [facility] HEMOGLOBIN A1C Routine 06/09/2024 1:59 AM [facility] CBC W/O DIFFERENTIAL Routine 06/09/2024 1:59 AM [facility] COMPREHENSIVE METABOLIC PANEL Routine 06/09/2024 1:59 AM [facility] LIPID PROFILE Routine 06/09/2024 1:59 AM [facility] MAGNESIUM BLOOD Routine 06/09/2024 1:59 AM [facility] PHOSPHORUS BLOOD Routine 06/09/2024 1:59 AM [facility] TSH REFLEX FREE T4 Routine 06/09/2024 1: 59 AM [facility] GLUCOSE - POINT OF CARE Routine 06/08/2024 8:59 PM [facility] XR CHEST 1VW PORTABLE Routine 06/08/2024 5:04 PM [facility] Elevated troponin B-TYPE NATRIURETIC PEPTIDE STAT 06/08/2024 4:39 PM [facility] MAGNESIUM BLOOD STAT 06/08/2024 4:39 PM [facility] TROPONIN-I HIGH SENSITIVE STAT 06/08/2024 4:39 PM [facility] COMPREHENSIVE METABOLIC PANEL STAT 06/08/2024 4:39 PM [facility] CBC W AUTO DIFFERENTIAL STAT 06/08/2024 4:39 PM [facility] GLUCOSE - POINT OF CARE Routine 06/08/2024 3:34 PM [facility] from Last 3 Months Results * CARDIAC RHYTHM STRIP ORDER (06/13/2024 10:53 PM [facility]) Narrative 06/13/2024 10:53 PM [facility] Ordered by an unspecified provider. us Scanned Document CARDIAC SERVICES ORDERABLES Fin al Result * ECHO COMPLETE W CONTRAST (06/10/2024 1:18 PM P[facility]STER) LA vol index 0.022 l/m [facility] CV [...] Region Laterality Modality Ultrasound 06/10/2024 9:00 AM [facility] Narrative 06/10/2024 1:53 PM [facility] Summary * The left ventricle is normal [...] 9:00 AM Patient Status: I/P Study Site: [facility] Primary Location: [facility] EStudy Info Exam Type: ECHO COMPLETE W CONTRAST Indications I50.9 - Acute congestive heart failure, unspecified heart failure type (HCC) Procedure(s) * A complete 2D, color Doppler, spectral Doppler and M-Mode transthoracic echocardiogram was performed with [facility]. Staff Referring Physician: López Yeager Ordering Provider: López Yeager Attending Physician: López Yeager Nut Sorter: Raven Harrison Left Ventricle The left ventricle [...] 9:00 AM Patient Status: I/P Study Site: [facility] Primary Location: [facility] EStudy Info Exam Type: ECHO COMPLETE W CONTRAST Indications I50.9 - Acute congestive heart failure, unspecified heart failuretype (HCC) Procedure(s) * A complete 2D, color Doppler, spectral Doppler and M-Modetransthoracic echocardiogram was performed with [facility]. Staff Referring Physician: López Yeager Ordering Provider: López Yeager Attending Physician: López Yeager Nut Sorter: Raven Harrison Left Ventricle The left ventricle [...] - POINT OF CARE (06/10/2024 12:48 PM [facility]) Only the most recent of11 resultswithin the time period is included. Pathologist [facility] Glucose WB/POC 159(H) 70 - 99 mg/dL 06/10/2024 12:53 PM [facility] Specimen Type Cap Fingerstick 2024 12:53 PM [facility] Blood BLOOD SPECIMEN / Unknown 06/10/2024 12:48 PM [facility] 06/10/2024 12:53 PM [facility] us Olimpia No MD LAB - POINT OF CARE ORDERABLE S Final Result [facility] [address] [place] [address] * (ABNORMAL) CBC W/O DIFFERENTIAL (06/10/2024 4:45 AM [facility]) Only the most recent of2 resultswithin the time period is included. [facility] WBC 2.3(L) 4.0 - 10.7 x10E9/L 06/10/2024 5:36 AM [facility] RBC Count 4.44 4.30 - 5.80 x10E12/L 06/10/2024 5:36 AM [facility] Hemoglobin 13.2(L) 13.3 - 17.5 g/dL 06/10/2024 5:36 AM [facility] Hematocrit 37.8(L) 38.7 - 51.1 % 06/10/2024 5:36 AM [facility] MCV 85.1 80.0 - 98.0 fL 06/10/2024 5:36 AM [facility] MCH 29.7 26.7 - 33.6 pg 06/10/2024 5:36 AM [facility] MCHC 34.9 31.7 - 36.3 g/dL 06/10/2024 5:36 AM [facility] RDW-CV 15.2(H) 11.3 - 14.8 % 06/10/2024 5:36 AM [facility] Platelet Count 64(L) 150 - 420 x10E9/L 06/10/2024 5:36 AM [facility] MPV 10.9 7.8 - 11.4 fL 06/10/2024 5:36 AM [facility] Blood BLOOD SPECIMEN / Unknown Venipuncture / Unknown 06/10/2024 4:45 AM [facility] 06/10/2024 5:01 AM [facility] us Olimpai No MD LAB - HEMATOLOGY ORDERABLES F inal Result Performing Organization Address City/State/[facility] Co de Phone Number [facility] [address] [place] [address] * (ABNORMAL) BASIC METABOLIC PANEL (CALCIUM TOTAL) (06/10/2024 4:45 AM [facility]) Glucose 107(H) 70 - 99 mg/dL 06/10/2024 5:25 AM [facility] Sodium 139 136 - 145 mmol/L 06/10/2024 5:25 AM [facility] Potassium 3.4(L) 3.5 - 5.1 mmol/L 06/10/2024 5:25 AM [facility] Chloride 107 98 - 107 mmol/L 06/10/2024 5:25 AM [facility] CO2 22 22 - 29 mmol/L 06/10/2024 5:25 AM [facility] Calcium 8.2(L) 8.4 - 10.4 mg/dL 06/10/2024 5:25 AM [facility] Anion Gap 10 6 - 16 mmol/L 06/10/2024 5:25 AM [facility] BUN 15 7 - 26 mg/dL 06/10/2024 5:25 AM [facility] Creatinine 0.70(L) 0.72 - 1.25 mg/dL 06/10/2024 5:25 AM [facility] eGFR by CKD-EPI >90 >=90 mL/min/1.7 3 m2 06/10/2024 5:25 AM [facility] Blood BLOOD SPECIMEN / Unknown Venipuncture / Unknown 06/10/2024 4:45 AM [facility] 06/10/2024 5:01 AM [facility] Olimpia No MD LAB - CHEMISTRY ORDERABLES Fi nal Result Performing Organization Address [facility] de Phone Number [facility] [address] [place] [address] * TSH REFLEX FREE T4 (06/09/2024 1:59 AM P[facility]) Pathologist [facility] TSH 0.559 0.350 - 4.940 uIU/mL 06/09/2024 2:56 AM [facility] Blood BLOOD SPECIMEN / Unknown Venipuncture / Unknown 06/09/2024 1:59 AM [facility] 06/09/2024 2:15 AM [facility] us López Yeager MD LAB - CHEMISTRY ORDERABLES Anastasiya l Result Performing Organization Address [facility] Co de Phone Number [facility] [address] [place] [address] * (ABNORMAL) HEMOGLOBIN A1C (06/09/2024 1:59 AM [facility]) Hemoglobin A1c 9.1(H) <5.7 % 06/09/2024 2:28 AM [facility] Estimated Average Glucose 214 mg/dL 06/09/2024 2:28 AM [facility] Blood BLOOD SPECIMEN / Unknown Venipuncture / Unknown 06/09/2024 1:59 AM [facility] 06/09/2024 2:15 AM [facility] - 06/09/2024 2:28 AM [facility] HbA1c Interpretation: Normal: < 5.7% Pre-diabetes: 5.7-6.4% [...] ORDERABLES Anastasiya l Result Performing Organization Address City/State/[facility] Co de Phone Number [facility] [address] [place] [address] * (ABNORMAL) COMPREHENSIVE METABOLIC PANEL (06/09/2024 1:59 AM [facility]) Only the most recent of2 resultswithin the time period is included. Glucose 220(H) 70 - 99 mg/dL 06/09/2024 3:01 AM [facility] Sodium 134(L) 136 - 145 mmol/L 06/09/2024 3:01 AM [facility] Potassium 4.2 3.5 - 5.1 mmol/L 06/09/2024 3:01 AM [facility] Chloride 104 98 - 107 mmol/L 06/09/2024 3:01 AM [facility] CO2 21(L) 22 - 29 mmol/L 06/09/2024 3:01 AM [facility] Calcium 8.1(L) 8.4 - 10.4 mg/dL 06/09/2024 3:01 AM [facility] Anion Gap 9 6 - 16 mmol/L 06/09/2024 3:01 AM [facility] BUN 18 7 - 26 mg/dL 06/09/2024 3:01 AM [facility] Creatinine 0.85 0.72 - 1.25 mg/dL 06/09/2024 3:01 AM [facility] Alkaline Phosphatase 65 40 - 150 U/L 06/09/2024 3:01 AM [facility] ALT 14 0 - 55 U/L 06/09/2024 3:01 AM [facility] AST 50(H) 5 - 34 U/L 06/09/2024 3:01 AM [facility] Protein Total 5.8(L) 6.4 - 8.3 gm/dL 06/09/2024 3:01 AM [facility] Albumin 2.8(L) 3.4 - 5.0 gm/dL 06/09/2024 3:01 AM [facility] Bilirubin Total 3.2(H) 0.2 - 1.2 mg/dL 06/09/2024 3:01 AM [facility] eGFR by CKD-EPI >90 >=90 mL/min/1.7 3 m2 06/09/2024 3:01 AM [facility] Blood BLOOD SPECIMEN / Unknown Venipuncture / Unknown 06/09/2024 1:59 AM [facility] 06/09/2024 2:15 AM [facility] us López Yeager MD LAB - CHEMISTRY ORDERABLES Anastasiya enciso Result [facility] [address] [place] [address] * PHOSPHORUS BLOOD (06/09/2024 1:59 AM [facility]) Phosphorus 3.1 2.5 - 4.5 mg/dL 06/09/2024 2:40 AM [facility] Blood BLOOD SPECIMEN / Unknown Venipuncture / Unknown 06/09/2024 1:59 AM [facility] 06/09/2024 2:15 AM [facility] López Yeager MD LAB - CHEMISTRY ORDERABLES Anastasiya l Result Performing Organization Address [facility]/ZIP Co de Phone Number [facility] [id number] [place] [address] * MAGNESIUM BLOOD (06/09/2024 1:59 AM [facility]) Only the most recent of2 resultswithin the time period is included. Magnesium 1.7 1.6 - 2.6 mg/dL 06/09/2024 2:40 AM [facility] Blood BLOOD SPECIMEN / Unknown Venipuncture / Unknown 06/09/2024 1:59 AM [facility] 06/09/2024 2:15 AM [facility] López Yeager MD LAB - CHEMISTRY ORDERABLES Anastasiya l Result Performing Organization Address [facility] de Phone Number [facility] [id number] [place] [address] * (ABNORMAL) LIPID PROFILE (06/09/2024 1:59 AM [facility]) Cholesterol 69 <200 mg/dL 06/09/2024 2:40 AM [facility] Triglycerides 99 <150 mg/dL 06/09/2024 2:40 AM [facility] HDL Cholesterol 19(L) >40 mg/dL 2:40 AM [facility] LDL Calculated 30 <130 mg/dL 06/09/2024 2:40 AM [facility] VLDL Calculated 20 <=30 mg/dL 2:40 AM [facility] Chol HDL Ratio 3.6 <4.5 06/09/2024 2:40 AM [facility] LDL/HDL Ratio 1.6 <5.0 06/09/2024 2:40 AM [facility] Blood BLOOD SPECIMEN / Unknown Venipuncture / Unknown 06/09/2024 1:59 AM [facility] 06/09/2024 2:15 AM [facility] López Yeager MD LAB - CHEMISTRY ORDERABLES Anastasiya enciso Result [facility] [address] [place] [address] * XR Chest 1Vw Portable (06/08/2024 5:04 PM [facility]) Anatomical Region Laterality Modality Chest Computed Radiogr aphy 06/08/2024 6:49 PM [facility] Impressions 06/08/2024 6:50 PM [facility] IMPRESSION: No acute disease in the chest. Borderline cardiomegaly. > Interpreting Provider: Harry England MD on 06/08/2024 6:50 PM Narrative 06/08/2024 6:50 PM [facility] PROCEDURE: XR CHEST 1VW PORTABLE DATE/TIME OF [...] silhouette. There are no definite pleural effusions. fibre composite technician wires obscure the chest bilaterally. Procedure Note [...] (ABNORMAL) TROPONIN-I HIGH SENSITIVE (06/08/2024 4:39 PM [facility]) [facility] Troponin I High Sensitive 54(H) <=35 ng/L 06/08/2024 5:21 PM [facility] Blood BLOOD SPECIMEN / Unknown Venipuncture / Unknown 06/08/2024 4:39 PM [facility] 06/08/2024 4:55 PM [facility] López Yeager MD LAB - CHEMISTRY ORDERABLES Anastasiya l Result [facility] [address] [place] [id number] * (ABNORMAL) CBC W AUTO DIFFERENTIAL (06/08/2024 4:39 PM [facility]) [facility] WBC 4.2 4.0 - 10.7 x10E9/L 06/08/2024 5:12 PM [facility] RBC Count 5.01 4.30 - 5.80 x10E12/L 06/08/2024 5:12 PM [facility] Hemoglobin 14.8 13.3 - 17.5 g/dL 06/08/2024 5:12 PM [facility] Hematocrit 42.1 38.7 - 51.1 % 06/08/2024 5:12 PM [facility] MCV 84.0 80.0 - 98.0 fL 06/08/2024 5:12 PM [facility] MCH 29.5 26.7 - 33.6 pg 06/08/2024 5:12 PM [facility] MCHC 35.2 31.7 - 36.3 g/dL 06/08/2024 5:12 PM [facility] RDW-CV 15.9(H) 11.3 - 14.8 % 06/08/2024 5:12 PM [facility] Platelet Count 67(L) 150 - 420 x10E9/L 06/08/2024 5:12 PM [facility] MPV 10.4 7.8 - 11.4 fL 06/08/2024 5:12 PM [facility] Neutrophil % 67.5 41.0 - 74.0 % 06/08/2024 5:12 PM [facility] Lymphocyte % 15.4(L) 17.0 - 47.0 % 06/08/2024 5:12 PM [facility] Monocyte % 15.9(H) 3.0 - 11.0 % 06/08/2024 5:12 PM [facility] Eosinophil % 0.0 0.0 - 7.0 % 06/08/2024 5:12 PM [facility] Basophil % 0.7 0.0 - 1.6 % 06/08/2024 5:12 PM [facility] Immature Granulocytes % 0.5 0.0 - 1.0 % 06/08/2024 5:12 PM [facility] Neutrophil Absolute 2.80 1.60 - 7.50 x10E9/L 06/08/2024 5:12 PM [facility] Lymphocyte Absolute 0.64(L) 1.00 - 4.40 x10E9/L 06/08/2024 5:12 PM [facility] Monocyte Absolute 0.66 0.15 - 1.00 x10E9/L 06/08/2024 5:12 PM [facility] Eosinophil Absolute 0.00 0.00 - 0.60 x10E9/L 06/08/2024 5:12 PM [facility] Basophil Absolute 0.03 0.00 - 0.13 x10E9/L 06/08/2024 5:12 PM [facility] Blood BLOOD SPECIMEN / Unknown Venipuncture / Unknown 06/08/2024 4:39 PM [facility] 06/08/2024 4:55 PM [facility] us López Yeager MD LAB - HEMATOLOGY ORDERABLES Fin al Result [facility] [address] [place] [address] * (ABNORMAL) B-TYPE NATRIURETIC PEPTIDE (06/08/2024 4:39 PM [facility]) BNP 345(H) <=100 pg/mL 06/08/2024 5:19 PM [facility] Blood BLOOD SPECIMEN / Unknown Venipuncture / Unknown 06/08/2024 4:39 PM [facility] 06/08/2024 4:55 PM [facility] López Yeager MD LAB - CHEMISTRY ORDERABLES Anastasiya enciso Result [facility] [address] [place] [address] from Last 3 Months Insurance MEDICAID [employer] [place] Advance Directives * Full Code (Latest Code Status on File) Date Activated Date Inactivated Comments 06/08/2024 3:48 PM 06/10/2024 7:18 PM Care Teams Campaign Marketing Specialist Relationship Specialty Start Date End Date Braydon Pavon PA [address] [place] [address] PCP - General Physician Commercial Mortgage Broker 07/14/23
--- OUTSIDE RECORDS SUMMARY | 2024-08-19 21:40 | XMS_ITS | Referral Summary ---
Author Organization [facility] Address [address] [place] [address] Care Team Providers Care Engineering Project Manager Name Role Phone Nacho Rodriguez MD Unavailable [phone] Elian Gross MD Unavailable Braydon Pavon Primary Care Provider [phone] Encounters Date Type Department Care Team Description 07/06/2024 Documentation [facility] Gastroenterology [address] 12th [place] [address] [place] [address] Sean Rodas RN 07/05/2024 Results Follow-Up [facility] Gastroenterology [address] [facility] 12th [place] [address] [place] [address] Nilton Whatley MD 07/05/2024 9:40 AM SAND CUTTER - 07/05/2024 11:59 PM SAND CUTTER Hospital Encounter [facility] [address] [place] [address] Hepatic cirrhosis, unspecified hepatic cirrhosis type, unspecified whether ascites present (HCC) Discharge Disposition: Discharge to home or self care 06/02/2024 8:55 AM SAND CUTTER Lab [facility]) [address] [place] [address] Hepatic cirrhosis, unspecified hepatic cirrhosis type, unspecified whether ascites present (HCC) 06/02/2024 8:00 AM SAND CUTTER Office Visit [facility] Gastroenterology [address] [facility] 12th [place] [address] [place] [phone] Nilton Whatley MD Hepatic cirrhosis, unspecified hepatic [...] 1 each 05/21/19 22 Active Dexcom G6 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 Use to [...] 05/20/2021 Assessment & Plan (05/22/2021 3:58 PM SAND CUTTER): A initial well visit to establish care [...] unless otherwise indicated. Need follow-up arranged with aircraft log clerk, welding process engineer Planning on referral to oil painter Will need to check in to the tips follow-up Labs as ordered today, I will direct the A1 c to his welding process engineer's office. Continuing the current regimen for now. Blood pressure is controlled at this time. We may need to try to get the stress test done as well. Screen for colon cancer 03/01/2021 Overview (03/01/2021): Added automatically from request for surgery [id number] Diabetic neuropathy associat ed with type 2 diabetes mellitus 10/29/2020 Assessment & Plan (10/29/2020 4:23 PM CDT): Chronic, worsening Start, gabapentin therapy Work on better diabetic control Vitamin D deficiency 10/29/2020 Assessment & Plan (10/29/2020 4:23 PM CDT): Check labs and based on that for the plans Bacterial endocarditis 05/14/2020 Assessment & Plan (05/14/2020 11:09 AM SAND CUTTER): Unfortunately the patient's records from [place] are not available for my review. We [...] 05/14/2020 Assessment & Plan (05/14/2020 11:11 AM SAND CUTTER): The patient's dyspnea on exertion is likely [...] - follow up in 6 weeks with CHAIN MENDER Chelsea Driscoll ( to discuss about insulin [...] resume home regimen and follow-up with home welding process engineer MATHEUS pain 10/11/2017 Morbid obesity 12/09/2016 TRACY [...] on file Legal Sex Male 2:52 PM SAND CUTTER Gender Identity Male 10/29/2020 12:37 PM CDT Sexual Orientation Straight 10/29/2020 12 :37 PM CDT Last Filed Vital Signs Vital Sign Reading Time Taken Comments Blood Pressure 117/76 06/02/2024 7:36 AM SAND CUTTER Pulse 88 06/02/2024 7:36 AM SAND CUTTER Temperature 36.7 C (98.1 F) 06/02/2024 7:36 AM SAND CUTTER Respiratory Rate 17 01/20/2024 12:0 0 PM CDT Oxygen Saturation 92% 06/02/2024 7:36 AM SAND CUTTER Inhaled Oxygen Concentration - - Weight 103.1 kg (227 lb 6.4 oz) 06/02/2024 7:36 AM SAND CUTTER Height 172.7 cm (5' 8 ) 11/23/2023 7:53 AM CDT Body Mass Index 34.58 11/23/2023 7:53 AM CDT Plan of Treatment Not on file Medical Devices Implanted Type Area Picking Belt Operator Device Identifier Shelf Expiration Date Model / Serial / Lot Bard Peripheral Vascular [id number] Lifestar 14mm 60mm 80cm Stent Biliary - [id number] Implanted:Qty: 1 on 01/10/2021 at [facility] [employer] Peripheral Vascular 09/15/2023 [id number] / / [id number] Procedures Procedure Name Priority Date/Time Associated Diagnosis Comments US LIVER W COMPLETE DOPPLER Schedule Routine, Read Routine (OP Routine) 07/05/2024 11:25 AM SAND CUTTER Hepatic cirrhosis, unspecified hepatic cirrhosis type, unspecified whether ascites present (HCC) EGFR Routine 06/02/2024 8:48 AM SAND CUTTER Hepatic cirrhosis, unspecified hepatic cirrhosis type, unspecified whether ascites present (HCC) COMPREHENSIVE METABOLIC PANEL Routine 06/02/2024 8:48 AM SAND CUTTER Hepatic cirrhosis, unspecified hepatic cirrhosis type, unspecified whether ascites present (HCC) PROTIME-INR Routine 06/02/2024 8:48 AM SAND CUTTER Hepatic cirrhosis, unspecified hepatic cirrhosis type, unspecified whether ascites present (HCC) [id number], TUMOR MARKER Routine 06/02/2024 8:48 AM SAND CUTTER Hepatic cirrhosis, unspecified hepatic cirrhosis type, unspecified whether ascites present (HCC) BILIRUBIN, DIRECT Routine 06/02/2024 8:4 8 AM SAND CUTTER Hepatic cirrhosis, unspecified hepatic cirrhosis type, unspecified whether ascites present (HCC) HEMOGLOBIN A1C STAT 11/23/2023 8:40 AM CDT LIPID PANEL Routine 05/20/2021 9:36 AM SAND CUTTER Morbid obesity with body mass index (BMI) of 40.0 to 44.9 in adult (HCC) ALBUMIN CREATININE RATIO, URINE Routine 05/20/2021 9:36 AM SAND CUTTER Diabetic neuropathy associated with type 2 diabetes mellitus (HCC) COLONOSCOPY 12/17/2020 10:24 AM CDT SERUM HEPATITIS PANEL Routine 08/23/2015 5:23 PM CDT from Last 3 Months or Most Recently Relevant to Health Maintenance Results * US Liver W Complete Doppler (C) (07/05/2024 11:25 AM SAND CUTTER) Anatomical Region Laterality Modality Abdomen N/A Ultrasound 07/05/2024 11:3 7 AM SAND CUTTER Impressions 07/05/2024 11:57 AM SAND CUTTER 1. Sonographic features of cirrhosis. 2. US [...] Maurice Paul M.D. Narrative 07/05/2024 11:57 AM SAND CUTTER EXAMINATION: 1. LIVER SONOGRAM 2. LIVER DOPPLER [...] Re sult * eGFR (06/02/2024 8:48 AM SAND CUTTER) eGFR >90 >=60 mL/min/1. 73 m2 Comment: [...] last reviewed 2021. Blood 06/02/2024 8:48 AM SAND CUTTER 06/02/2024 9:05 AM SAND CUTTER us Nilton Whatley MD LAB BLOOD ORDERABLES Final Result [facility] Department [place] [address] * [id number], Tumor Marker (06/02/2024 8:48 AM SAND CUTTER) alpha Fetoprotein <2.0 <=8.3 ng/mL Comment: Interpretive [...] 2018;57:[id number] Jeyson Sanches et al. Clin Chem 2014;1961-6736. Current interpretive data was last revised 2022. Blood 06/02/2024 8:48 AM SAND CUTTER 06/02/2024 9:00 AM SAND CUTTER us Nilton M. Korenblat MD LAB BLOOD ORDERABLES Final Result [facility] Department [place] [address] * (ABNORMAL) Protime-INR (06/02/2024 8:48 AM SAND CUTTER) PT 13.5(H) 9.7 - 13.0 sec INR 1.24(H) 0.90 - 1.20 [facility] Comment: Interpretive data Oral anticoagulant therapeutic ranges: Venous thromboembolism prophylaxis or treatment: 2.0-3.0 CARDIOLOGY Standard range: 2.0-3.0 High-intensity range: 2.5-3.5 Refer to indication-specific guidelines for appropriate target ranges for prosthetic heart valve replacement. Current interpretive data was last revised on 2019. Blood 06/02/2024 8:48 AM SAND CUTTER 06/02/2024 9:00 AM SAND CUTTER us Nilton Whatley MD LAB BLOOD ORDERABLES Final Result Performing Organization Address [facility] Co de Phone Number [facility] Department [place] [address] * (ABNORMAL) Bilirubin, direct (06/02/2024 8:48 AM SAND CUTTER) Pathologist [facility] Bilirubin, direct 0.6(H) 0.1 - 0.3 mg/dL Comment:Hemolyzed; result ma y be falsely decreased Blood 06/02/2024 8:48 AM SAND CUTTER 06/02/2024 9:00 AM SAND CUTTER us Nilton Whatley MD LAB BLOOD ORDERABLES Final Result Performing Organization Address City/State/[facility] Co de Phone Number [facility] [place] [address] * (ABNORMAL) Comprehensive metabolic panel (06/02/2024 8:48 AM SAND CUTTER) Pathologist [facility] Sodium 141 135 [...] be falsely elevated Blood 06/02/2024 8:48 AM SAND CUTTER 06/02/2024 9:00 AM SAND CUTTER Nilton Whatley MD LAB BLOOD ORDERABLES Final Result [facility] Department [place] [address] * Albumin Creatinine Ratio, Urine (05/20/2021 9:36 AM SAND CUTTER) Albumin Ur <12.0 mg/L [facility] Comment: Interpretive Data No reference range established. Current interpretive data was last revised 2018. Creatinine Ur 47.6 mg/dL [facility] Comment: Interpretive Data No reference range established. Current interpretive data was last revised 2018. Albumin Creatinine Ratio, Ur <25 1 - 29 mg/g [facility] Urine 05/20/2021 9:36 AM SAND CUTTER 05/20/2021 7:41 PM SAND CUTTER us Simon Lundberg MD LAB URINE ORDERABLES Final Result [facility] [address] Department [place] [address] * (ABNORMAL) Lipid panel (05/20/2021 9:36 AM SAND CUTTER) Cholesterol 110 30 - 199 mg/dL [facility] [...] ratio 3 [facility] Blood 05/20/2021 9:36 AM SAND CUTTER 05/20/2021 7:41 PM SAND CUTTER us Simon Lundberg MD LAB BLOOD ORDERABLES Final Result Performing Organization Address City/State/[place] [address] [facility] Department [place] [address] * COLONOSCOPY (12/17/2020 10:24 AM CDT) Anatomical Region Laterality Modality Other Narrative Procedure Note Elian Gross MD - 12/17/2020 10:24 AM CDT ENDOSCOPY LAB Patient Name: Camilo Curry Procedure Date: 12/17/2020 10:24 AM Date of : 1970 Admit Type: Outpatient Age: 50 Gender: Male Attending MD: Elian Vivar M.D. Room: [facility] ENDOSCOPY ROOM 02 Note Status: [...] the physician, the nurse, the anesthesiologist, the felt machine mechanic and thetechnician in the pre-procedure area in [...] The scope was passed under direct vision.The [id number] was introduced through the anusand advanced to the hepatic flexure. The colonoscopywas performed without difficulty. The patient tolerated the procedure well. The quality of the bowel preparation was unsatisfactory. The quality of the bowel preparation was evaluated using the BBPS([place] Bowel Preparation Scale) with scores of: RightColon [...] 12/17/2020 10:24 AM Elian Draper MD ENDOSCOPY DE OCEDURES Final Result * Serum Hepatitis panel (08/23/2015 5:23 PM CDT) HBV surface ag Negative NEG HISTO RICAL RESULTS HCV ab Negative NEG HISTORICAL RESULTS Comment: Interpretive Data If confirmation is required, call Laboratory Customer Service to request sample to be sent to [facility] for Hepatitis C Virus (HCV) RNA Detection and Quantitation by Real-Time Reverse Tax Manager Cpa-PCR (RT-PCR). Current interpretive data was last revised [...] Most Recently Relevant to Health Maintenance [facility] [place] Advance Directives For more information, please contact: [phone] * Full Code (Latest Code Status on [...] 11:57 AM 02/03/2018 5:26 AM Care Teams Engineering Project Manager Relationship Specialty Start Date End Date Braydon Pavon PA [address] [place] [address] PCP - General 08/23/21 [place] [id number] [address] [facility] [facility] [address], [place] [address] Consulting Physician Endocrinology 05/20/21 [place] [id number] [address] [facility] [address], [place] [address] Consulting Physician Internal Medicine 05/20/21
--- OUTSIDE RECORDS SUMMARY | 2024-08-19 21:40 | XMS_ITS | Clinical Summary ---
Author Organization [facility] Address [address] [facility] [address] Valenzuelan: Epic Prelude ADT [place] [address] Care Team Providers Care Tax Investigator Name Role Phone Carlos Mcdonnell DO Primary Care Provider Unava ilable Allergies No known active allergies Medications No known medications Encounters Date Type Department Care Team Description 06/30/2024 8:59 PM SCHOOL LABORATORY TECHNICIAN - 06/30/2024 11:11 PM SCHOOL LABORATORY TECHNICIAN Emergency [facility] Emergency Department [address] [place] [address] Gerry Caal DO Encounter for [...] on file Legal Sex Male 6:23 AM SCHOOL LABORATORY TECHNICIAN Gender Identity Not on file Sexual Orientation Not on file Last Filed Vital Signs Vital Sign Reading Time Taken Comments Blood Pressure 147/78 06/30/2024 10:10 PM SCHOOL LABORATORY TECHNICIAN Pulse 89 06/30/2024 10:55 PM SCHOOL LABORATORY TECHNICIAN Temperature 36.4 C (97.5 F) 06/30/2024 5:45 PM SCHOOL LABORATORY TECHNICIAN Respiratory Rate 13 06/30/2024 10:55 PM SCHOOL LABORATORY TECHNICIAN Oxygen Saturation 96% 06/30/2024 10:55 PM SCHOOL LABORATORY TECHNICIAN Inhaled Oxygen Concentration - - Weight - [...] Diagnosis Comments LIPASE Stat 06/30/2024 9:40 PM SCHOOL LABORATORY TECHNICIAN COMPREHENSIVE METABOLIC PANEL Stat 06/30/2024 9:40 PM SCHOOL LABORATORY TECHNICIAN VERIFICATION BLOOD GROUP Stat 06/30/2024 9:39 PM SCHOOL LABORATORY TECHNICIAN Encounter for blood typing PROTIME-INR Stat 06/30/2024 9:39 PM SCHOOL LABORATORY TECHNICIAN EXTRA TUBE (BLUE) Stat 06/30/2024 9:3 9 PM SCHOOL LABORATORY TECHNICIAN EXTRA TUBE Stat 06/30/2024 9:39 PM SCHOOL LABORATORY TECHNICIAN TYPE AND SCREEN Stat 06/30/2024 6:10 PM SCHOOL LABORATORY TECHNICIAN CBC WITH DIFFERENTIAL Stat 06/30/2024 6:10 PM SCHOOL LABORATORY TECHNICIAN from Last 3 Months Results * LIPASE (06/30/2024 9:40 PM SCHOOL LABORATORY TECHNICIAN) Pathologist [facility] LIPASE 17 13 - 60 U/L 06/30/2024 10:40 PM SCHOOL LABORATORY TECHNICIAN [facility] Blood Venipuncture / Unknown 06/30/2024 9:40 PM SCHOOL LABORATORY TECHNICIAN 06/30/2024 10:08 PM SCHOOL LABORATORY TECHNICIAN Gerry Caal DO CHEMISTRY ORDERABLES Final Resu lt [facility] CLIA# [id number] [place] [address] * (ABNORMAL) COMPREHENSIVE METABOLIC PANEL (06/30/2024 9:40 PM SCHOOL LABORATORY TECHNICIAN) Pathologist [facility] SODIUM 137 136 - 145 mmol/L 06/30/2024 10:47 PM [facility] POTASSIUM 4.0 3.4 - 5.1 mmol/L 06/30/2024 10:47 PM [facility] CHLORIDE 98 98 - 107 mmol/L 06/30/2024 10:47 PM [facility] CO2 25 22 - 29 mmol/L 06/30/2024 10:47 PM [facility] CALCIUM 9.8 8.6 - 10.4 mg/dL 06/30/2024 10:47 PM [facility] BUN 17 6 - 20 mg/dL 06/30/2024 10:47 PM [facility] CREATININE 0.78 0.67 - 1.17 mg/dL 06/30/2024 10:47 PM [facility] GLUCOSE 450(HH) 74 - 99 mg/dL 06/30/2024 10:47 PM [facility] TOTAL PROTEIN 7.0 6.3 - 8.7 g/dL 06/30/2024 10:47 PM [facility] ALBUMIN 3.8 3.5 - 5.2 g/dL 06/30/2024 10:47 PM [facility] BILIRUBIN TOTAL 4.0(H) 0.3 - 1.2 mg/dL 06/30/2024 10:47 PM [facility] ALKALINE PHOSPHATASE 94 40 - 150 U/L 06/30/2024 10:47 PM [facility] AST 24 0 - 41 U/L 06/30/2024 10:47 PM [facility] ALT 13 0 - 41 U/L 06/30/2024 10:47 PM [facility] GFR >60 >=60 mL/min/1.7 3 sq meter 06/30/2024 10:47 PM [facility] Comment:eGFR calculated with 2020 CKD-EPI equation. Vegetarian diet, extremely high or low muscle mass, and may affect results. Cystatin C with Glomerular Filtration Rate is a suitable alternative for these patients. ANION GAP 14 8 - 16 mmol/L 06/30/2024 10:47 PM [facility] Blood Venipuncture / Unknown 06/30/2024 9:40 PM SCHOOL LABORATORY TECHNICIAN 06/30/2024 10:08 PM SCHOOL LABORATORY TECHNICIAN Gerry Caal DO CHEMISTRY ORDERABLES Final Resu lt Performing Organization Address [facility]/ZIP Co de Phone Number [facility] CLIA# [id number] [place] [address] * EXTRA TUBE (BLUE) (06/30/2024 9:39 PM SCHOOL LABORATORY TECHNICIAN) Blood Venipuncture / Unknown 06/30/2024 9:39 PM SCHOOL LABORATORY TECHNICIAN 06/30/2024 10:57 PM SCHOOL LABORATORY TECHNICIAN Gerry Caal DO HEMATOLOGY ORDERABLES Final Res ult [facility] CLIA# [id number] [place] [address] * VERIFICATION BLOOD GROUP (06/30/2024 9:39 PM SCHOOL LABORATORY TECHNICIAN) ABO GROUP A 06/30/2024 11:11 PM SCHOOL LABORATORY TECHNICIAN [facility] RH (D) TYPE Positive 06/30/2024 11:11 PM SCHOOL LABORATORY TECHNICIAN [facility] Blood Venipuncture / Unknown 06/30/2024 9:39 PM SCHOOL LABORATORY TECHNICIAN 06/30/2024 10:07 PM SCHOOL LABORATORY TECHNICIAN Carlos Mcdonnell DO BLOOD BANK ORDERABLES Final Result [facility]# [id number] [place] [address] * (ABNORMAL) PROTIME-INR (06/30/2024 9:39 PM SCHOOL LABORATORY TECHNICIAN) Pathologist [facility] PROTIME 15.0(H) 11.5 - 14.7 Seconds 06/30/2024 11:05 PM SCHOOL LABORATORY TECHNICIAN [facility] INR 1.2(H) 0.9 - 1.1 06/30/2024 11:05 PM SCHOOL LABORATORY TECHNICIAN [facility] Blood Venipuncture / Unknown 06/30/2024 9:39 PM SCHOOL LABORATORY TECHNICIAN 06/30/2024 10:57 PM SCHOOL LABORATORY TECHNICIAN Gerry Caal DO HEMATOLOGY ORDERABLES Final Res ult [facility] CLIA# [id number] [place] [address] * (ABNORMAL) CBC WITH DIFFERENTIAL (06/30/2024 6:10 PM SCHOOL LABORATORY TECHNICIAN) WBC 5.3 4.0 - 9.8 K/uL 06/30/2024 6:48 PM SCHOOL LABORATORY TECHNICIAN [facility] NovoPedics [facility] RBC 5.86(H) 4.50 - 5.40 M/uL 06/30/2024 6:48 PM [facility] HEMOGLOBIN 16.8(H) 13.6 - 16.5 g/dL 06/30/2024 6:48 PM [facility] HEMATOCRIT 48.6(H) 40.0 - 48.0 % 06/30/2024 6:48 PM [facility] MCV 82.9 82.0 - 99.0 fL 06/30/2024 6:48 PM [facility] MCH 28.7 27.2 - 32.6 pg 06/30/2024 6:48 PM [facility] MCHC 34.6 31.5 - 35.5 g/dL 06/30/2024 6:48 PM [facility] RDW 16.9(H) 11.5 - 14.5 % 06/30/2024 6:48 PM [facility] RDW-STDEV 46.3 37.1 - 48.7 fL 06/30/2024 6:48 PM [facility] PLATELETS 78(L) 140 - 350 K/uL 06/30/2024 6:48 PM [facility] MPV 06/30/2024 6:48 PM [facility] Comment:Parameter not availa ble NEUTROPHILS 70 % 06/30/2024 6:48 PM [facility] LYMPHOCYTES 16 % 06/30/2024 6:48 PM [facility] MONOCYTES 9 % 06/30/2024 6:48 PM [facility] EOSINOPHILS 3 % 06/30/2024 6:48 PM [facility] BASOPHILS 1 % 06/30/2024 6:48 PM [facility] IMMATURE GRANULOCYTES 1 % 06/30/2024 6:48 PM [facility] Comment:IG (Immature Granulo cyte) count includes Metamyelocytes, Myelocytes, and Promyelocytes NEUTROPHIL ABSOLUTE 3.73 1.90 - 7.00 K/uL 06/30/2024 6:48 PM [facility] LYMPHOCYTE ABSOLUTE 0.86 0.70 - 4.50 K/uL 06/30/2024 6:48 PM SCHOOL LABORATORY TECHNICIAN [facility] LABORATORY [facility] MONOCYTE ABSOLUTE 0.47 0.10 - 1.30 K/uL 06/30/2024 6:48 PM SCHOOL LABORATORY TECHNICIAN [facility] LABORATORY [facility] EOSINOPHIL ABSOLUTE 0.18 0.00 - 0.70 K/uL 06/30/2024 6:48 PM SCHOOL LABORATORY TECHNICIAN [facility] LABORATORY [facility] BASOPHILS ABSOLUTE 0.07 0.00 - 0.20 K/uL 06/30/2024 6:48 PM SCHOOL LABORATORY TECHNICIAN [facility] LABORATORY [facility] IMMATURE GRANULOCYTES ABSOLUTE 0.03 0.00 - 0.03 K/uL 06/30/2024 6:48 PM SCHOOL LABORATORY TECHNICIAN [facility] LABORATORY [facility] Blood Venipuncture / Unknown 06/30/2024 6:10 PM SCHOOL LABORATORY TECHNICIAN 06/30/2024 6:40 PM SCHOOL LABORATORY TECHNICIAN Gerry Caal DO HEMATOLOGY ORDERABLES Final Res ult [facility] CLIA# [id number] [place] [address] * TYPE AND SCREEN (06/30/2024 6:10 PM SCHOOL LABORATORY TECHNICIAN) ABO GROUP A 06/30/2024 7:40 PM SCHOOL LABORATORY TECHNICIAN [facility] RH (D) TYPE Positive 06/30/2024 7:40 PM SCHOOL LABORATORY TECHNICIAN [facility] ANTIBODY SCREEN Negative 06/30/2024 7:40 PM SCHOOL LABORATORY TECHNICIAN [facility] Blood Venipuncture / Unknown 06/30/2024 6:10 PM SCHOOL LABORATORY TECHNICIAN 06/30/2024 6:31 PM SCHOOL LABORATORY TECHNICIAN Gerry Caal DO BLOOD BANK ORDERABLES Edited Re sult - Final [facility] CLIA# [id number] [place] [address] from Last 3 Months Insurance [facility] MEDICAID Care Teams Tax Investigator Relationship Specialty Start Date End Date Carlos Mcdonnell DO PCP - General 11/18/07
--- OUTSIDE RECORDS SUMMARY | 2024-08-19 21:40 | XMS_ITS | Continuity of Care Document ---
Author Organization [facility] Address [address] [facility] [place] [address] Phone Care Team Providers Care Senior Education Specialist Name Role Phone Roosevelt Mcgee MD Unavailable [...] route every day 5 MG - Active [place] 10 mg-325 mg tablet take 1 tablet [...] Copied on Encounter OFFICE/OUTPA TIENT VISIT, EST [facility], [address], [id number], [place] tel:[phone] [facility] anxiety1 (chief complaint) DM (chief complaint) liver cirrhosis (chief complaint) GERD1 (chief complaint) chronic pain (chief complaint) Type 2 diabetes mellitus without complicationsGenera lized Anxiety DisorderOther cirrhosis of liverChronic pain syndrome 2-201 [address] [place], [place], [id number] , . tel:[phone] Referring Provider: Roosevelt Mcgee [address], [place], [place], [id number]. tel:[phone] Family History Family Member Type Diagnosis Age [...] takes lantus, tradejnta, humalog. His BG is [id number]. Pt sees endo for his DM. Pt [...] Mental Status Date Cognitive Assessment Orientation - [place] ed to time, place, person, situation.
--- OUTSIDE RECORDS SUMMARY | 2024-08-19 21:40 | XMS_ITS | Encounter Summary ---
Author Organization [facility] Healthcare Address [address] [place] [address] Care Team Providers Care Patient Care Nursing Assistant Name Role Phone Braydon Pavon Primary Care Provider [phone] Nikolay Lancaster MD Unavailable [phone] Simon Lundberg MD Primary Care Provider [phone] aNcho Rodriguez MD Unavailable [phone] Elian Gross MD Unavailable Braydon Pavon Primary Care Provider [phone] Encounter Details Date Type Department Care Team (Late st Contact Info) Description 10/05/2020 Telephone [facility] Imaging [address] [place], [place] [id number] Trice Aldana, RT Social History Tobacco Use [...] on file Legal Sex Male 2:52 PM ELECTRONICS RESEARCH ENGINEER Gender Identity Male 10/29/2020 12:37 PM CDT Sexual Orientation Straight 10/29/2020 12 :37 PM CDT documented as of this encounter Plan of Treatment Not on file documented as of this encounter Visit Diagnoses Not on filedocumented in this encounter Care Teams Patient Care Nursing Assistant Relationship Specialty Start Date End Date Braydon Pavon PA [address] [place] [address] PCP - General Family Practice 05/09/20 05/19/21 Simon Lundberg MD [address] [place] [address] PCP - General Family Medicine 05/20/21 08/22/21 Braydon Pavon PA [address] [place] [address] PCP - General 08/23/21 Nikolay Lancaster MD [address] [place] [address] 05/09/20 05/19/21 [place] [address] [address] [facility] [address] [address] Consulting Physician Endocrinology 05/20/21 [place] [address] [address] [facility] [address] [address] Consulting Physician Internal Medicine 05/20/21 documented as of this encounter
--- OUTSIDE RECORDS SUMMARY | 2024-08-19 21:40 | XMS_ITS | Clinical Summary ---
Author Organization [facility] Address [address] [place] [address] Care Team Providers Care Fourdrinier Wire Weaver Name Role Phone Nacho Rodriguez MD Unavailable [phone] Elian Gross MD Unavailable Braydon Pavon Primary Care Provider [phone] Allergies Active Allergy Reactions Criticality Noted Date [...] 1 each 05/21/19 22 Active Dexcom G6 French Comber misc 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 Use to [...] 05/20/2021 Assessment & Plan (05/22/2021 3:58 PM INDUSTRIAL RELATIONS DIRECTOR): A initial well visit to establish care [...] unless otherwise indicated. Need follow-up arranged with singing waiter or waitress, manager appointment Planning on referral to paperhanger and painter Will need to check in to the tips follow-up Labs as ordered today, I will direct the A1 c to his manager appointment's office. Continuing the current regimen for now. Blood pressure is controlled at this time. We may need to try to get the stress test done as well. Screen for colon cancer 03/01/2021 Overview (03/01/2021): Added automatically from request for surgery [id number] Diabetic neuropathy associat ed with type 2 diabetes mellitus 10/29/2020 Assessment & Plan (10/29/2020 4:23 PM CDT): Chronic, worsening Start, gabapentin therapy Work on better diabetic control Vitamin D deficiency 10/29/2020 Assessment & Plan (10/29/2020 4:23 PM CDT): Check labs and based on that for the plans Bacterial endocarditis 05/14/2020 Assessment & Plan (05/14/2020 11:09 AM INDUSTRIAL RELATIONS DIRECTOR): Unfortunately the patient's records from [facility] are [...] 05/14/2020 Assessment & Plan (05/14/2020 11:11 AM INDUSTRIAL RELATIONS DIRECTOR): The patient's dyspnea on exertion is likely [...] resume home regimen and follow-up with home manager appointment MATHEUS pain 10/11/2017 Morbid obesity 12/09/2016 TRACY [...] Type Department Care Team Description 07/06/2024 Documentation [facility] Gastroenterology [address] [place] [address] Advanced Medicine 12th [place] [address] [place] [address] Sean Rodas, BETHANY 07/05/2024 9:40 AM INDUSTRIAL RELATIONS DIRECTOR - 07/05/2024 11:59 PM INDUSTRIAL RELATIONS DIRECTOR Hospital Encounter [facility] ([facility]) [address] [place] [address] Hepatic cirrhosis, unspecified hepatic cirrhosis type, unspecified whether ascites present (HCC) Discharge Disposition: Discharge to home or self care 07/05/2024 Results Follow-Up [facility] Gastroenterology [address] [place] [address] Advanced Medicine [facility] [place] [address] [place] [address] Nilton Whatley MD 06/02/2024 8:55 AM INDUSTRIAL RELATIONS DIRECTOR Lab [facility] ([facility]) [address] [place] [address] Hepatic cirrhosis, unspecified hepatic cirrhosis type, unspecified whether ascites present (HCC) 06/02/2024 8:00 AM INDUSTRIAL RELATIONS DIRECTOR Office Visit [facility] Gastroenterology [address] [place] [address] Advanced Medicine 12th [place] [address] [place] [address] Nilton Whatley MD Hepatic cirrhosis, unspecified hepatic [...] file Legal Sex Male 2:52 PM INDUSTRIAL RELATIONS DIRECTOR Gender Identity Male 10/29/2020 12:37 PM CDT Sexual Orientation Straight 10/29/2020 12 :37 PM CDT Obstetrics History Last Filed Vital Signs Vital Sign Reading Time Taken Comments Blood Pressure 117/76 06/02/2024 7:36 AM INDUSTRIAL RELATIONS DIRECTOR Pulse 88 06/02/2024 7:36 AM INDUSTRIAL RELATIONS DIRECTOR Temperature 36.7 C (98.1 F) 06/02/2024 7:36 AM INDUSTRIAL RELATIONS DIRECTOR Respiratory Rate 17 01/20/2024 12:0 0 PM CDT Oxygen Saturation 92% 06/02/2024 7:36 AM INDUSTRIAL RELATIONS DIRECTOR Inhaled Oxygen Concentration - - Weight 103.1 kg (227 lb 6.4 oz) 06/02/2024 7:36 AM INDUSTRIAL RELATIONS DIRECTOR Height 172.7 cm (5' 8 ) 11/23/2023 [...] Completed 08/23/2015 Medical Devices Implanted Type Area Ui Application Developer Device Identifier Shelf Expiration Date Model / Serial / Lot [employer] Peripheral Vascular [id number] Lifestar 14mm 60mm 80cm Stent Biliary - [id number] Implanted:Qty: 1 on 01/10/2021 at [facility] [employer] 09/15/2023 [id number] / / [id number] Procedures Procedure Name Priority Date/Time Associated Diagnosis Comments US LIVER W COMPLETE DOPPLER Schedule Routine, Read Routine (OP Routine) 07/05/2024 11:25 AM INDUSTRIAL RELATIONS DIRECTOR Hepatic cirrhosis, unspecified hepatic cirrhosis type, unspecified whether ascites present (HCC) EGFR Routine 06/02/2024 8:48 AM INDUSTRIAL RELATIONS DIRECTOR Hepatic cirrhosis, unspecified hepatic cirrhosis type, unspecified whether ascites present (HCC) COMPREHENSIVE METABOLIC PANEL Routine 06/02/2024 8:48 AM INDUSTRIAL RELATIONS DIRECTOR Hepatic cirrhosis, unspecified hepatic cirrhosis type, unspecified whether ascites present (HCC) PROTIME-INR Routine 06/02/2024 8:48 AM INDUSTRIAL RELATIONS DIRECTOR Hepatic cirrhosis, unspecified hepatic cirrhosis type, unspecified whether ascites present (HCC) [id number], TUMOR MARKER Routine 06/02/2024 8:48 AM INDUSTRIAL RELATIONS DIRECTOR Hepatic cirrhosis, unspecified hepatic cirrhosis type, unspecified whether ascites present (HCC) BILIRUBIN, DIRECT Routine 06/02/2024 8:4 8 AM INDUSTRIAL RELATIONS DIRECTOR Hepatic cirrhosis, unspecified hepatic cirrhosis type, unspecified whether ascites present (HCC) HEMOGLOBIN A1C STAT 11/23/2023 8:40 AM CDT LIPID PANEL Routine 05/20/2021 9:36 AM INDUSTRIAL RELATIONS DIRECTOR Morbid obesity with body mass index (BMI) of 40.0 to 44.9 in adult (HCC) ALBUMIN CREATININE RATIO, URINE Routine 05/20/2021 9:36 AM INDUSTRIAL RELATIONS DIRECTOR Diabetic neuropathy associated with type 2 diabetes mellitus (HCC) COLONOSCOPY 12/17/2020 10:24 AM CDT SERUM HEPATITIS PANEL Routine 08/23/2015 5:23 PM CDT from Last 3 Months or Most Recently Relevant to Health Maintenance Results * US Liver W Complete Doppler (C) (07/05/2024 11:25 AM INDUSTRIAL RELATIONS DIRECTOR) Anatomical Region Laterality Modality Abdomen N/A Ultrasound 07/05/2024 11:3 7 AM INDUSTRIAL RELATIONS DIRECTOR Impressions 07/05/2024 11:57 AM INDUSTRIAL RELATIONS DIRECTOR 1. Sonographic features of cirrhosis. 2. US [...] Maurice Paul M.D. Narrative 07/05/2024 11:57 AM INDUSTRIAL RELATIONS DIRECTOR EXAMINATION: 1. LIVER SONOGRAM 2. LIVER DOPPLER [...] Re sult * eGFR (06/02/2024 8:48 AM INDUSTRIAL RELATIONS DIRECTOR) eGFR >90 >=60 mL/min/1. 73 m2 Comment: [...] last reviewed 2021. Blood 06/02/2024 8:48 AM INDUSTRIAL RELATIONS DIRECTOR 06/02/2024 9:05 AM INDUSTRIAL RELATIONS DIRECTOR Nilton Whatley MD LAB BLOOD ORDERABLES Final Result Performing Organization Address City/State/[facility] [place] Phone Number [facility] [place] [address] * [id number], Tumor Marker (06/02/2024 8:48 AM INDUSTRIAL RELATIONS DIRECTOR) alpha Fetoprotein <2.0 <=8.3 ng/mL Comment: Interpretive [...] 2018;[id number]:[id number] Jeyson Sanches et al. Clin Chem 2014;5606-2725. Current interpretive data was last revised 2022. Blood 06/02/2024 8:48 AM INDUSTRIAL RELATIONS DIRECTOR 06/02/2024 9:00 AM INDUSTRIAL RELATIONS DIRECTOR us Nilton Whatley MD LAB BLOOD ORDERABLES Final Result [facility] [place] [address] * (ABNORMAL) Protime-INR (06/02/2024 8:48 AM INDUSTRIAL RELATIONS DIRECTOR) PT 13.5(H) 9.7 - 13.0 sec INR 1.24(H) 0.90 - 1.20 [facility] Comment: Interpretive data Oral anticoagulant therapeutic ranges: Venous thromboembolism prophylaxis or treatment: 2.0-3.0 CARDIOLOGY Standard range: 2.0-3.0 High-intensity range: 2.5-3.5 Refer to indication-specific guidelines for appropriate target ranges for prosthetic heart valve replacement. Current interpretive data was last revised on 2019. Blood 06/02/2024 8:48 AM INDUSTRIAL RELATIONS DIRECTOR 06/02/2024 9:00 AM INDUSTRIAL RELATIONS DIRECTOR us Nilton Whatley MD LAB BLOOD ORDERABLES Final Result Performing Organization Address City/[facility] Co de Phone Number [facility] [place] [address] * (ABNORMAL) Bilirubin, direct (06/02/2024 8:48 AM INDUSTRIAL RELATIONS DIRECTOR) Bilirubin, direct 0.6(H) 0.1 - 0.3 mg/dL Comment:Hemolyzed; result ma y be falsely decreased Blood 06/02/2024 8:48 AM INDUSTRIAL RELATIONS DIRECTOR 06/02/2024 9:00 AM INDUSTRIAL RELATIONS DIRECTOR us Nilton Whatley MD LAB BLOOD ORDERABLES Final Result Performing Organization Address City/[facility] Co de Phone Number [facility] [place] [address] * (ABNORMAL) Comprehensive metabolic panel (06/02/2024 8:48 AM INDUSTRIAL RELATIONS DIRECTOR) Sodium 141 135 - 145 mmol/L Potassium, pl 4.3 3.3 - 4.9 mmol/L [facility] Comment:Hemolyzed; Potassium value may be falsely elevated by as much as 0.3-0.5 mmol/L. Suggest redraw and reanalysis. Chloride 107 97 - 110 mmol/L [facility] CO2 27 22 - 32 mmol/L [facility] Anion gap 7 2 - 15 mmol/L [facility] BUN 13 6 - 25 mg/dL [facility] Creatinine 0.76(L) 0.80 - 1.30 mg/dL [facility] Glucose 242(H) 70 - 199 mg/dL [facility] Comment: Interpretive Data Fasting [...] 2022. Calcium 9.6 8.5 - 10.3 mg/dL [facility] Bilirubin, total 3.0(H) 0.1 - 1.2 mg/dL [facility] Protein, pl 6.9 6.5 - 8.5 g/dL [facility] Albumin 3.8 3.5 - 5.0 g/dL [facility] Alk phos 90 40 - 130 Units/L [facility] ALT 19 7 - 55 Units/L [facility] AST 38 10 - 50 Units/L [facility] Comment:Hemolyzed; result ma y be falsely elevated Blood 06/02/2024 8:48 AM INDUSTRIAL RELATIONS DIRECTOR 06/02/2024 9:00 AM INDUSTRIAL RELATIONS DIRECTOR Nilton Whatley MD LAB BLOOD ORDERABLES Final Result Performing Organization Address City/[facility] Co de Phone Number [facility]HEL[facility] [place] [address] * Albumin Creatinine Ratio, Urine (05/20/2021 9:36 AM INDUSTRIAL RELATIONS DIRECTOR) Albumin Ur <12.0 mg/L [facility] Comment: Interpretive Data No reference range established. Current interpretive data was last revised 2018. Creatinine Ur 47.6 mg/dL [facility] Comment: Interpretive Data No reference range established. Current interpretive data was last revised 2018. Albumin Creatinine Ratio, Ur <25 1 - 29 mg/g [facility] Urine 05/20/2021 9:36 AM INDUSTRIAL RELATIONS DIRECTOR 05/20/2021 7:41 PM INDUSTRIAL RELATIONS DIRECTOR Simon Lundberg MD LAB URINE ORDERABLES Final Result Performing Organization Address City/[facility] Co de Phone Number [facility] [address] [facility] [place] [address] * (ABNORMAL) Lipid panel (05/20/2021 9:36 AM INDUSTRIAL RELATIONS DIRECTOR) Cholesterol 110 30 - 199 mg/dL [facility] [...] 3 [facility] MICHELLE Blood 05/20/2021 9:36 AM INDUSTRIAL RELATIONS DIRECTOR 05/20/2021 7:41 PM INDUSTRIAL RELATIONS DIRECTOR Simon Lundberg MD LAB BLOOD ORDERABLES Final Result [facility] [address] [facility] [place] [address] * COLONOSCOPY (12/17/2020 10:24 AM CDT) Anatomical Region Laterality Modality Other Narrative Procedure Note Elian Gross MD - 12/17/2020 10:24 AM CDT ENDOSCOPY LAB Patient Name: Camilo Curry Procedure Date: 12/17/2020 10:24 AM Date of : 1970 Admit Type: Outpatient Age: 50 Gender: Male Attending MD: Elian Vivar M.D. Room: [facility] ENDOSCOPY ROOM 02 Note Status: Finalized [...] the physician, the nurse, the anesthesiologist, the piece dyeing machine tender and thetechnician in the pre-procedure area in [...] The scope was passed under direct vision.The [id number] was introduced through the anusand advanced to the hepatic flexure. The colonoscopywas performed without difficulty. The patient tolerated the procedure well. The quality of the bowel preparation was unsatisfactory. The quality of the bowel preparation was evaluated using the BBPS(Docena Bowel Preparation Scale) with scores of: RightColon [...] Initiated On: 12/17/2020 10:24 AM us Elian Darper MD ENDOSCOPY SD OCEDURES Final Result * Serum Hepatitis panel (08/23/2015 5:23 PM CDT) HBV surface ag Negative NEG HISTO RICAL RESULTS HCV ab Negative NEG HISTORICAL RESULTS Comment: Interpretive Data If confirmation is required, call Laboratory Customer Service to request sample to be sent to [facility] for Hepatitis C Virus (HCV) RNA Detection and Quantitation by Real-Time Reverse Equipment Installer-PCR (RT-PCR). Current interpretive data was last [...] Recently Relevant to Health Maintenance Insurance [employer] [facility] [employer] [facility] [employer] [facility] Advance Directives For more information, please contact: [phone] * Full Code (Latest Code Status on [...] 11:57 AM 02/03/2018 5:26 AM Care Teams Fourdrinier Wire Weaver Relationship Specialty Start Date End Date Braydon Pavon PA [address] [place] [address] PCP - General 08/23/21 [place] [address] [facility] [address], [place] [address] Consulting Physician Endocrinology 05/20/21 [place] [address] [facility] [address] [place] [address] Consulting Physician Internal Medicine 05/20/21
--- OUTSIDE RECORDS SUMMARY | 2024-08-19 21:40 | XMS_ITS | Clinical Summary ---
Author Organization [facility] Address [address] [place] [address] Phone Care Team Providers Care Forensic Pathologist Name Role Phone Librado Braydon NEAL Primary Care Provider [phone] Vikram Mora MD Unavailable Riddhi Bello APRN, UNIVERSITY PRESIDENT Unavailable Allergies Active Allergy Reactions Criticality Noted [...] as needed. 3 Active ergocalciferol (VITAMIN D) 35220 UNIT Capsule Take 50,000 Units by mouth. Active Insulin Pen Needle (B-D ULTRAFINE III SHORT PEN) 31G X 8 MM Misc 1 Active Insulin Pen Needle (B-D ULTRAFINE III SHORT PEN) 31G X 8 MM Misc 1 Each by Subcutaneous route. 1 Active Insulin Pen Needle (Pen [place]) 32G X 4 MM Misc Inject 3 [...] 10 Tablet 4 Active Continuous Blood Gluc Energy Economist (Dexcom G7 Energy Economist) Device Check blood glucose before each meal and at bedtime 1 Each 4 Active HYDROcodone-bella taminophen ([place]) 10-325 MG Tablet Take 1 Tablet by [...] Nurse Triage [facility] - Gastroenterology [facility] [address] [place] [address] Riddhi Bello APRN, UNIVERSITY PRESIDENT Blood in Vomit from Last 3 Months [...] on file Legal Sex Male 10:58 AM COACH DRIVER Gender Identity Not on file Sexual [...] Visit [facility] - Neurology [facility] [address] [place] [id number] Andrea Hawkins MD [address] [place] [address] Health Maintenance Due Date Last Done Comments [...] W/ ESTIMATED GLUCOSE STAT 05/20/2023 10:44 AM COACH DRIVER from Last 3 Months or Most Recently Relevant to Health Maintenance Results * (ABNORMAL) CMP (Comprehensive Metabolic Panel) (11/13/2023 6:40 PM CDT) SODIUM 139 136 - 145 mmol/L 11/13/2023 7:25 PM CDT [facility] POTASSIUM 3.7 3.5 - 5.1 mmol/L 11/13/2023 7:25 PM CDT [facility] CHLORIDE 105 98 - 107 mmol/L 11/13/2023 7:25 PM CDT [facility] CO2, VENOUS 24 22 - 30 mmol/L 11/13/2023 7:25 PM CDT [facility] ANION GAP 13.7 <18.0 mmol/L 11/13/2023 7:25 PM CDT [facility] GLUCOSE 188(H) 70 - 99 mg/dL 11/13/2023 7:25 PM CDT [facility] BUN 11 8 - 26 mg/dL 11/13/2023 7:25 PM CDT [facility] CREATININE, BLOOD 0.84 0.70 - 1.30 mg/dL 11/13/2023 7:25 PM CDT [facility] BUN/CREATININE RATIO 13 12 - 20 ratio 11/13/2023 7:25 PM CDT [facility] TOTAL PROTEIN 7.3 6.3 - 8.2 g/dL 11/13/2023 7:25 PM CDT [facility] ALBUMIN 3.9 3.5 - 5.0 g/dL 11/13/2023 7:25 PM CDT [facility] A/G RATIO 1.1 1.0 - 2.2 11/13/2023 7:25 PM CDT [facility] CALCIUM 9.4 8.7 - 10.5 mg/dL 11/13/2023 7:25 PM CDT [facility] T BILI 3.6(H) 0.2 - 1.2 mg/dL 11/13/2023 7:25 PM CDT [facility] SGOT (AST) 27 5 - 34 U/L 11/13/2023 7:25 PM CDT [facility] SGPT (ALT) 17 0 - 55 U/L 11/13/2023 7:25 PM CDT [facility] ALKALINE PHOSPHATASE 90 40 - 150 U/L 11/13/2023 7:25 PM CDT [facility] GFR, ESTIMATED >60 >=60 11/13/2023 7:25 PM CDT [facility] Comment: Creatinine Clearance is the preferred criteria for selecting drug dose adjustments in renally impaired patients. The GFR is provided as additional pertinent clinical information. GFR is reported in mL/min/1.73 sq m. Calculation based on the Chronic Kidney Disease Epidemiology Collaboration (CKD- EPI) equation refit without adjustment for race. GFR, EST. >60 >=60 024 7:25 PM CDT [facility] GFR, EST. NONAFRICAN >60 >=60 11/13/2023 7:25 PM CDT [facility] Blood Venipuncture / Unknown 11/13/2023 6:40 PM CDT 11/13/2023 7:00 PM CDT us Lul Junior DO CHEMISTRY ORDERABLES Fi nal Result [facility] [address] [place] [address] * (ABNORMAL) Hemoglobin A1C (05/20/2023 10:44 AM COACH DRIVER) HGB-A1C 11.6(H) 4.0 - 6.0 % 05/20/2023 12:30 PM COACH DRIVER [facility] Est Average Glucose 286.2 mg/dL 05/20/2023 12:30 PM COACH DRIVER [facility] Blood Venipuncture / Unknown 05/20/2023 10:44 AM COACH DRIVER 05/20/2023 11:01 AM COACH DRIVER Narrative [facility] - 05/20/2023 12:30 PM COACH DRIVER HEMOGLOBIN A1C: DIABETIC PATIENTS: WELL-CONTROLLED: 6.2 - 7.0 INTERMEDIATE WELL-CONTROLLED: 7.0 - 9.0 POORLY-CONTROLLED: >9.0 Felicitas Luz APRN, UNIVERSITY PRESIDENT CHEMISTRY ORDERABLES Final Result Performing Organization Address City/[facility] Co de Phone Number [facility] [address] [place] [address] from Last 3 Months or Most Recently Relevant to Health Maintenance [facility] [address] [place] [address] Care Teams Forensic Pathologist Relationship Specialty Start Date End Date Braydon Pavon, [address] [place] [address] PCP - General Physician Cosmetic Chemist 06/22/18 Vikram Mora MD [address] [id number] Consulting Physician Endocrinology 05/21/23 Riddhi Bello APRN, UNIVERSITY PRESIDENT [address] [place] [address] Nurse Practitioner Advanced Practice Nurse 02/10/23
--- OUTSIDE RECORDS SUMMARY | 2024-08-19 21:40 | XMS_ITS | Encounter Summary ---
Author Organization [facility] Address [address] [place] [address] Care Team Providers Care Transportation Equipment Painter Name Role Phone Braydon Pavon Primary Care Provider [phone] Nikolay Lancaster MD Unavailable [phone] Simon Lundberg MD Primary Care Provider [phone] Nacho Rodriguez MD Unavailable [phone] Elian Gross MD Unavailable Braydon Pavon Primary Care Provider [phone] Encounter Details Date Type Department Care Team (Late st Contact Info) Description 09/14/2020 Telephone [facility] Imaging [address] [place] [address] Trice Aldana, RT Social History Tobacco Use [...] on file Legal Sex Male 2:52 PM SEE WHEELER Gender Identity Male 10/29/2020 12:37 PM CDT Sexual Orientation Straight 10/29/2020 12 :37 PM CDT documented as of this encounter Plan of Treatment Not on file documented as of this encounter Visit Diagnoses Not on filedocumented in this encounter Care Teams Transportation Equipment Painter Relationship Specialty Start Date End Date Braydon Pavon PA [address] [place] [address] PCP - General Family Practice 05/09/20 05/19/21 Simon Lundberg MD [address] [place] [address] PCP - General Family Medicine 05/20/21 08/22/21 Braydon Pavon PA [address] [place] [address] PCP - General 08/23/21 Nikolay Lancaster MD [address] [place] [address] 05/09/20 05/19/21 [place] [address] [address] [facility] [address], [place] [address] Consulting Physician Endocrinology 05/20/21 [place] [address] [address] [facility] [address], [place] [address] Consulting Physician Internal Medicine 05/20/21 documented as of this encounter
--- OUTSIDE RECORDS SUMMARY | 2024-08-19 21:40 | XMS_ITS | Encounter Summary ---
Author Organization [facility] Address [facility] [place] [address] Care Team Providers Care Pt Skilled Name Role Phone Braydon Pavon Primary Care Provider [phone] Nikolay Lancaster MD Primary Care Provider [phone] Braydon Pavon Primary Care Provider [phone] Reason for Visit * Reason Onset Date Comments MEDICATION REFILL 09/08/2018 Encounter Details Date Type Department Care Team (Late st Contact Info) Description 09/08/2018 Refill [facility] [address] [facility] [place] [address] Edmond Choi MD [address] [facility] [address] [facility] [place] [address] MEDICATION REFILL Social History Tobacco Use Types Packs/Day Years Used Date Smoking Tobacco: Former Smokeless Tobacco: Never Alcohol Use Standard Drinks/Week Comments No 0 (1 standard drink = 0.6 oz pur e alcohol) Sex and Gender Information Value Date Recorded Sex Assigned at Not on file Legal Sex Male 8:18 AM LEARNING DEVELOPER Gender Identity Not on file Sexual Orientation Not on file documented as of this encounter Plan of Treatment Not on file documented as of this encounter Visit Diagnoses Not on filedocumented in this encounter Additional Health Concerns Infection Onset Date Last Indicated Resolved Time COVID-19 Under Investigation 06/08/2024 06/08/2024 06/08/2024 4:31 PM LEARNING DEVELOPER Influenza A or B Comment:OSH result 06/08/2024 06/09/2024 06/15/2024 4:[address] documented as of this encounter Care Teams Pt Skilled Relationship Specialty Start Date End Date Braydon Pavon PA [address] [place] [address] PCP - General Physician Softlines Supervisor 05/19/18 10/03/18 Nikolay Lancaster MD [address] [place] [address] PCP - General 10/04/18 07/13/23 Braydon Pavon PA [address] [place] [address] PCP - General Physician Softlines Supervisor 07/14/23 documented as of this encounter
[2024-08-19 21:49] VITALS: BP 136/85; PULSE 100; RESP 18; O2SAT 100
== END 2024-08-19 21:50 | disposition home or self-care (01) ==
PROVIDERS: Emergency Provider Emergency Medicine; PCP Physician Assistant
DX: M54.50 Low back pain, unspecified (principal); E11.9 Type 2 diabetes mellitus without complications; Z87.891 Personal history of nicotine dependence
CPT/HCPCS: 96372; 99283; A9270; J1171

== ENCOUNTER 2024-09-12 22:05 | Emergency (ER) | payer OTHER, SELFPAY ==
--- NOTE | ~2024-09-12 | XR_ITS ---
EXAM: XR lumbar spine 2-3V DATE: 09/12/2024 23:07 HISTORY: PAIN AFTER FALL A COUPLE DAYS AGO . COMPARISON: 03/05/2021; CT lumbar spine 08/17/2023. FINDINGS: 5 nonrib-bearing lumbar-type vertebral bodies. Pedicles intact. Normal vertebral body alig nment. Vertebral body heights preserved. Multilevel moderate degenerative disc disease. Multilevel mo derate facet arthropathy. No fracture or dislocation. TIPS. Right upper quadrant calcification, possi ble gallstone. IMPRESSION: No acute fracture or traumatic malalignment detected in the lumbar spine. If pain persist s or clinical suspicion of injury is high consider CT or MRI of the lumbar spine for further evaluati on. Reviewed, dictated and finalized at location K. IMPRESSION: No acute fracture or traumatic malalignment detected in the lumbar spine. If pain persists or clinical suspicion of injury is high consider CT or MRI of the lumbar spine for further evaluation.
--- OUTSIDE RECORDS SUMMARY | 2024-09-12 22:07 | XMS_ITS | Encounter Summary ---
Author Organization [facility] Healthcare Address [address] [place] [address] Care Team Providers Care Revit Drafter Name Role Phone Braydon Pavon Primary Care Provider [phone] Nikolay Lancaster MD Unavailable [phone] Simon Lundberg MD Primary Care Provider [phone] Nacho Rodriguze MD Unavailable [phone] Elian Gross MD Unavailable Braydon Pavon Primary Care Provider Encounter Details Date Type Department Care Team (Late st Contact Info) Description 09/14/2020 Telephone [facility] Imaging [address] [place] [place], [place] [id number] Trice Aldana, RT Social History Tobacco Use [...] file Legal Sex Male 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 Gender Identity Male 10/29/2020 12:37 PM CDT Sexual Orientation Straight 10/29/2020 12 :37 PM CDT documented as of this encounter Plan of Treatment Not on file documented as of this encounter Visit Diagnoses Not on filedocumented in this encounter Care Teams Revit Drafter Relationship Specialty Start Date End Date Braydon Pavon PA [address] [place] [address] PCP - General Family Practice 05/09/20 05/19/21 Simon Lundberg MD [address] [place] [address] PCP - General Family Medicine 05/20/21 08/22/21 Braydon Pavon PA [address] [place] [address] PCP - General 08/23/21 Nikolay Lancaster MD [address] [place] [address] 05/09/20 05/19/21 [place] [address] [address] [facility] [address] [address] Consulting Physician Endocrinology 05/20/21 [place] [address] [address] [facility] [address] [address] Consulting Physician Internal Medicine 05/20/21 documented as of this encounter
--- OUTSIDE RECORDS SUMMARY | 2024-09-12 22:07 | XMS_ITS | Clinical Summary ---
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 Use [...] 05/20/2021 Assessment & Plan (05/22/2021 3:58 PM COMMERCIAL ENERGY RATER): A initial well visit to establish care [...] unless otherwise indicated. Need follow-up arranged with tilting head band sawyer, vice president planning Planning on referral to paint laboratory technician Will need to check in to the tips follow-up Labs as ordered today, I will direct the A1 c to his vice president planning's office. Continuing the current regimen for now. Blood pressure is controlled at this time. We may need to try to get the stress test done as well. Screen for colon cancer 03/01/2021 Overview (03/01/2021): Added automatically from request for surgery [id number] Diabetic neuropathy associat ed with type 2 diabetes mellitus 10/29/2020 Assessment & Plan (10/29/2020 4:23 PM CDT): Chronic, worsening Start, gabapentin therapy Work on better diabetic control Vitamin D deficiency 10/29/2020 Assessment & Plan (10/29/2020 4:23 PM CDT): Check labs and based on that for the plans Bacterial endocarditis 05/14/2020 Assessment & Plan (05/14/2020 11:09 AM COMMERCIAL ENERGY RATER): Unfortunately the patient's records from [facility] are [...] 05/14/2020 Assessment & Plan (05/14/2020 11:11 AM COMMERCIAL ENERGY RATER): The patient's dyspnea on exertion is likely [...] resume home regimen and follow-up with home vice president planning MATHEUS pain 10/11/2017 Morbid obesity 12/09/2016 TRACY [...] Type Department Care Team Description 07/06/2024 Documentation [facility] [address] [place] [address] [place] [address] Sean Rodas, BETHANY 07/05/2024 9:40 AM COMMERCIAL ENERGY RATER - 07/05/2024 11:59 PM COMMERCIAL ENERGY RATER Hospital Encounter [facility] [address] [place] [address] Hepatic cirrhosis, unspecified hepatic cirrhosis type, unspecified whether ascites present (HCC) Discharge Disposition: Discharge to home or self care 07/05/2024 Results Follow-Up [facility] [address] [place] [address] [place] [address] Nilton Whatley MD from Last 3 Months Immunizations Immunization Administration [...] on file Legal Sex Male 2:52 PM COMMERCIAL ENERGY RATER Gender Identity Male 10/29/2020 12:37 PM CDT Sexual Orientation Straight 10/29/2020 12 :37 PM CDT Obstetrics History Last Filed Vital Signs Vital Sign Reading Time Taken Comments Blood Pressure 117/76 06/02/2024 7:36 AM COMMERCIAL ENERGY RATER Pulse 88 06/02/2024 7:36 AM COMMERCIAL ENERGY RATER Temperature 36.7 C (98.1 F) 06/02/2024 7:36 AM COMMERCIAL ENERGY RATER Respiratory Rate 17 01/20/2024 12:0 0 PM CDT Oxygen Saturation 92% 06/02/2024 7:36 AM COMMERCIAL ENERGY RATER Inhaled Oxygen Concentration - - Weight 103.1 kg (227 lb 6.4 oz) 06/02/2024 7:36 AM COMMERCIAL ENERGY RATER Height 172.7 cm (5' 8 ) 11/23/2023 [...] 05/20/2022 Depression Screening 05/20/2022 05/20/2021, 05/20/2021, 10/29/2020 Covid-19 Vaccine (2023-2 5 season) 2024 12/29/2020, 12/08/2020 Hemoglobin A1C 12/07/2024 06/09/2024, 11/02, 11/23/2023, Additional history exists Influenza Vaccine (Season Ended) 2025 eGFR 06/02/2025 06/02/2024, 01/02, 11/23/2023, Additional history exists Lipid Panel 06/09/2025 06/09/2024, 05/04, 08/28/2017, Additional history exists Colon Cancer Screening-Colonoscopy 12/17/20302020 Hepatitis C Screening Completed 08/23/2015 Medical Devices Implanted Type Area Sfdc Consultant Device Identifier Shelf Expiration Date Model / Serial / Lot Bard Peripheral Vascular [id number] Lifestar 14mm 60mm 80cm Stent Biliary - [id number] Implanted:Qty: 1 on 01/10/2021 at [facility] [employer] Peripheral Vascular 09/15/2023 [id number] / / [id number] Procedures Procedure Name Priority Date/Time Associated Diagnosis Comments US LIVER W COMPLETE DOPPLER Schedule Routine, Read Routine (OP Routine) 07/05/2024 11:25 AM COMMERCIAL ENERGY RATER Hepatic cirrhosis, unspecified hepatic cirrhosis type, unspecified whether ascites present (HCC) EGFR Routine 06/02/2024 8:48 AM COMMERCIAL ENERGY RATER Hepatic cirrhosis, unspecified hepatic cirrhosis type, unspecified whether ascites present (HCC) HEMOGLOBIN A1C STAT 11/23/2023 8:40 AM CDT LIPID PANEL Routine 05/20/2021 9:36 AM COMMERCIAL ENERGY RATER Morbid obesity with body mass index (BMI) of 40.0 to 44.9 in adult (HCC) ALBUMIN CREATININE RATIO, URINE Routine 05/20/2021 9:36 AM COMMERCIAL ENERGY RATER Diabetic neuropathy associated with type 2 diabetes mellitus (HCC) COLONOSCOPY 12/17/2020 10:24 AM CDT SERUM HEPATITIS PANEL Routine 08/23/2015 5:23 PM CDT from Last 3 Months or Most Recently Relevant to Health Maintenance Results * US Liver W Complete Doppler (C) (07/05/2024 11:25 AM COMMERCIAL ENERGY RATER) Anatomical Region Laterality Modality Abdomen N/A Ultrasound 07/05/2024 11:3 7 AM COMMERCIAL ENERGY RATER Impressions 07/05/2024 11:57 AM COMMERCIAL ENERGY RATER 1. Sonographic features of cirrhosis. 2. US [...] Maurice Paul M.D. Narrative 07/05/2024 11:57 AM COMMERCIAL ENERGY RATER EXAMINATION: 1. LIVER SONOGRAM 2. LIVER DOPPLER [...] it. Electronically signed by: Maurice Paul M.D. Nilton Whatley MD IMG US PROCEDURES Final Re sult * eGFR (06/02/2024 8:48 AM COMMERCIAL ENERGY RATER) eGFR >90 >=60 mL/min/1. 73 m2 Comment: [...] last reviewed 2021. Blood 06/02/2024 8:48 AM COMMERCIAL ENERGY RATER 06/02/2024 9:05 AM COMMERCIAL ENERGY RATER Nilton Whatley MD LAB BLOOD ORDERABLES Final Result [facility] Department [place] [address] * (ABNORMAL) Hemoglobin A1c (11/23/2023 8:40 AM CDT) Hgb A1C 10.0(H) 4.0 - 5.6 % Estimated Average Glucose 240 mg/dL MOHINDER MICHEL Comment: The ADA recommends reporting an estimated Average Glucose (eAG) with all Hemoglobin A1c results using the equation derived from a study of 507 normal and diabetic adults. Minority populations were underrepresented and children were not included. (Diabetes Care 2020; 43(S1): S66-S76). The eAG is not equivalent to a fasting glucose. Blood 11/23/2023 8:40 AM CDT 11/23/2023 8:56 AM CDT Stephen Buckner MD LAB BLOOD ORDERABLES Fi nal Result Performing Organization Address City/[facility]/ZIP Co de Phone Number MOHINDER H [facility] Department [place] [address] * Albumin Creatinine Ratio, Urine (05/20/2021 9:36 AM COMMERCIAL ENERGY RATER) Albumin Ur <12.0 mg/L MOHINDER Comment: Interpretive Data No reference range established. Current interpretive data was last revised 2018. Creatinine Ur 47.6 mg/dL MOHINDER Comment: Interpretive Data No reference range established. Current interpretive data was last revised 2018. Albumin Creatinine Ratio, Ur <25 1 - 29 mg/g MOHINDER Urine 05/20/2021 9:36 AM COMMERCIAL ENERGY RATER 05/20/2021 7:41 PM COMMERCIAL ENERGY RATER Simon Lundberg MD LAB URINE ORDERABLES Final Result Performing Organization Address City/[facility]/ZIP Co de Phone Number MOHINDER [address] [address] Department [place] [address] * (ABNORMAL) Lipid panel (05/20/2021 9:36 AM COMMERCIAL ENERGY RATER) Cholesterol 110 30 - 199 mg/dL MOHINDER [...] Chol/HDL ratio 3 MOHINDER MARTINEZ Blood 05/20/2021 9:3 6 AM COMMERCIAL ENERGY RATER 05/20/2021 7:41 PM COMMERCIAL ENERGY RATER us Simon Lundberg MD LAB BLOOD ORDERABLES Final Result MOHINDER [id number] [address] Department [place] [address] * COLONOSCOPY (12/17/2020 10:24 AM CDT) Anatomical Region Laterality Modality Other Narrative Procedure Note Elian Gross MD - 12/17/2020 10:24 AM CDT ENDOSCOPY LAB Patient Name: Camilo Curry Procedure Date: 12/17/2020 10:24 AM Date of : 1970 Admit Type: Outpatient Age: 50 Gender: Male Attending MD: Elian Vivar M.D. Room: [facility] ENDOSCOPY ROOM 02 Note Status: [...] the physician, the nurse, the anesthesiologist, the java security engineer and thetechnician in the pre-procedure area [...] The scope was passed under direct vision.The [id number] was introduced through the anusand advanced to the hepatic flexure. The colonoscopywas performed without difficulty. The patient tolerated the procedure well. The quality of the bowel preparation was unsatisfactory. The quality of the bowel preparation was evaluated using the BBPS([place] Bowel Preparation Scale) with scores of: RightColon [...] 10:24 AM us Elian Draper MD ENDOSCOPY SC OCEDURES Final Result * Serum Hepatitis panel (08/23/2015 5:23 PM CDT) HBV surface ag Negative NEG HISTO RICAL RESULTS HCV ab Negative NEG HISTORICAL RESULTS Comment: Interpretive Data If confirmation is required, call Laboratory Customer Service to request sample to be sent to [facility] for Hepatitis C Virus (HCV) RNA Detection and Quantitation by Real-Time Reverse Aboriginal Liaison Officer-PCR (RT-PCR). Current interpretive data was last revised [...] Most Recently Relevant to Health Maintenance [facility] AETNA [facility]TER [facility] Advance Directives For more information, please contact: [phone] * Full Code (Latest Code Status on [...] 11:57 AM 02/03/2018 5:26 AM Care Teams District Commercial Superintendent Relationship Specialty Start Date End Date Braydon Pavon PA [address] [place] [address] PCP - General 08/23/21 [place] [id number] [address] [facility] [address] [address] Consulting Physician Endocrinology 05/20/21 [place] [address] [address] [address] Consulting Physician Internal Medicine 05/20/21
--- OUTSIDE RECORDS SUMMARY | 2024-09-12 22:07 | XMS_ITS | Encounter Summary ---
Author Organization [facility] Healthcare Address [address] [place] [address] Care Team Providers Care Learning Design Specialist Name Role Phone Braydon Pavon Primary Care Provider [phone] Nikolay Lancaster MD Unavailable [phone] Simon Lundberg MD Primary Care Provider [phone] Nacho Rodriguez MD Unavailable [phone] Elian Gross MD Unavailable Braydon Pavon Primary Care Provider [phone] Encounter Details Date Type Department Care Team (Late st Contact Info) Description 10/05/2020 Telephone [facility] Imaging [address] [place] [id number] Trice Aldana, RT Social History Tobacco Use [...] on file Legal Sex Male 2:52 PM CORNER CUTTER Gender Identity Male 10/29/2020 12:37 PM CDT Sexual Orientation Straight 10/29/2020 12 :37 PM CDT documented as of this encounter Plan of Treatment Not on file documented as of this encounter Visit Diagnoses Not on filedocumented in this encounter Care Teams Learning Design Specialist Relationship Specialty Start Date End Date Braydon Pavon PA [address] [place] [address] PCP - General Family Practice 05/09/20 05/19/21 Simon Lundberg MD [address] [place] [address] PCP - General Family Medicine 05/20/21 08/22/21 Braydon Pavon PA [address] [place] [address] PCP - General 08/23/21 Nikolay Lancaster MD [address] [place] [address] 05/09/20 05/19/21 [place] [address] [address] [facility] [address] [address] Consulting Physician Endocrinology 05/20/21 [place] [address] [address] [facility] [address] [address] Consulting Physician Internal Medicine 05/20/21 documented as of this encounter
--- OUTSIDE RECORDS SUMMARY | 2024-09-12 22:07 | XMS_ITS | Data Portability ---
Author Organization [facility] Address [address] [place] [address] Care Team Providers Care Help Desk Support Specialist Name Role Phone JANETH PAVON Primary Care Provider [phone] Assessment No assessment recorded. Plan of Treatment Reminders Order Date Submit Date Provider Last Modified By Organization Details Last Modified Time Details Appointments ANY 15 2024 02:45P M Janeth Pavon PA-C Not available Not available Not available Lab urinalysi s, dipstick 2023 024 [facility] In-Office Order, Internal Use Only DO Not Attach Compendium DO Not Attach Compendium, Do Not Delete/merge, [id number] 04/06/2024 10:17:[address] [facility] [address], [address], 07/28/2024 11:39:23 Procedures None recorded. Surgeries None recorded. Imaging MRI, brain, w/o contrast 2024 025 [facility], [address] [place], [address], 08/11/2024 14:49:26 MRI, lumbar spine, w/o contrast 2023 024 [facility] [place] [facility], [address] [place], [address], 04/17/2024 07:55:02 Medication Orders None recorded. Patient TargetsNo targets recorded. Patient Instructions Encounter Date Encounter Id Patient Instructions Last Modified By Organization Details Last Modified Time 03/03/2024 [id number] A healthy lifestyle: care instructions jnanney Not available 03/03/2024 11:27:32 03/08/2024 [id number] A healthy lifestyle: care instructions jnanney Not available 03/08/2024 15:26:42 type 2 diabetes: care instructions jnanney Not available 03/08/2024 15:26:42 03/23/2024 [id number] A healthy lifestyle: care instructions jnanney Not available 03/23/2024 11:17:48 type 2 diabetes: care instructions jnanney Not available 03/23/2024 11:17:48 04/06/2024 [id number] painful urinatio n (dysuria): care instructions jnanney Not available 04/06/2024 10:11:20 When You Want to Lose Weight: Care Instructions jnanney Not available 04/06/2024 10:27:46 type 2 diabetes: care instructions jnanney Not available 04/06/2024 10:27:46 06/28/2024 [id number] coughing up blood: care instructions jnanney Not [...] DO Not Attach Compendium, Do Not Delete/merge, [id number] 04/06/2024 10:08:18 04/06/20 24 04/06/2024 urina lysis , dipst ick Nitrite negati ve Not Available In-Office Order Internal Use Only DO Not Attach Compendium DO Not Attach Compendium, Do Not Delete/merge, [id number] 04/06/2024 10:08:18 04/06/20 24 04/06/2024 urina lysis [...] 04/06/2024 urina lysis , dipst ick Specific Mackey 1.015 Not Available In-Off ice Order Internal [...] DO Not Attach Compendium, Do Not Delete/merge, [id number] 04/06/2024 10:08:18 04/06/20 24 04/06/2024 urina lysis , dipst ick Color Yellow Not Available In-Office Order Internal Use Only DO Not Attach Compendium DO Not Attach Compendium, Do Not Delete/merge, [id number] 04/06/2024 10:08:18 05/31/19 25 05/31/2024 Micro album in panel - 24 hour Urine microalbumin [mass/volume ] in urine 10.4 mg/L high: 20mg/L MICRO ALBUM IN (U) 10.4 <20 MG/L 05/31 7:37 PM [employer] [facility] MARCI CABALLERO Not Available Not Available 08/29/2024 12:26:57 05/31/19 25 05/31/2024 Micro album in panel - 24 hour Urine creatinine [mass/volume ] in urine 47.4 text: mg/dL CREAT ININE RANDO M (U) 47.4 MG/DL 05/31 7:37 PM [employer] [facility] MARCI CABALLERO Not Available Not Available 08/29/2024 12:26:57 05/31/19 25 05/31/2024 Micro album in panel - 24 hour Urine microalbumin /creatinine [mass ratio] in urine 21.9 mg/g high: 30mg/g ALBUM IN/CR EAT RATIO 21.9 <30 MG/G 05/31 7:37 PM [employer] [facility] MARCI CABALLERO Not Available Not Available 08/29/2024 12:26:57 06/08/19 25 06/09/2024 Gluco se [Mass /volu me] in Arter ial blood glucose [mass/volume ] in capillary blood by glucometer 241 mg/dL low: 70mg/d Lhigh: 99mg/d L high Gluco se WB/PO C 241 (H) 70 - 99 mg/dL 06/09 8:24 AM [employer] [facility] Not Available Not Available 06/28/2024 17:40:48 06/08/1906/09/2024 Gluco se [Mass /volu me] in Arter ial blood specimen source identified Cap Finger stick Speci men Type Cap Finge rstic k 06/09 8:24 AM [employer] [facility] Not Available Not Available 06/28/2024 17:40:48 06/08/19 25 06/09/2024 Gluco se [Mass /volu me] in Arter ial blood interpretati on and review of laboratory results Abnorm al Not Available Not Available 17:40:48 06/08/1906/08/2024 Magne sium [Mass /volu me] in Serum or Plasm a magnesium [mass/volume ] in serum or plasma 1.6 mg/dL low: 1.6mg/ dLhigh : 2.6mg/ dL Magne sium 1.6 1.6 - 2.6 mg/dL 06/08 5:17 PM [employer] [facility] Not Available Not Available [...] 70 - 99 mg/dL 06/08 5:17 PM [employer] [facility] Not Available Not Available 06/28/2024 17:40:48 06/08/19 25 06/08/2024 Compr ehens chetna metab olic 2000 panel - Serum or Plasm a sodium [moles/volum e] in serum or plasma 135 mmol/ L low: 136mmo l/Lhig h: 145mmo l/L low Sodiu m 135 (L) 136 - 145 mmol/ L 06/08 5:17 PM [employer] [facility] Not Available Not Available 06/28/2024 17:40:48 06/08/1906/08/2024 Compr ehens chetna metab olic 1999 panel - Serum or Plasm a potassium [moles/volum e] in serum or plasma 3.9 mmol/ L low: 3.5mmo l/Lhig h: 5.1mmo l/L Potas sium 3.9 3.5 - 5.1 mmol/ L 06/08 5:17 PM [employer] [facility] Not Available Not Available 06/28/2024 17:40:48 06/08/1906/08/2024 Compr ehens chetna metab olic 1999 panel - Serum or Plasm a chloride [moles/volum e] in serum or plasma 104 mmol/ L low: 98mmol /Lhigh : 107mmo l/L Chlor james 104 98 - 107 mmol/ L 06/08 5:17 PM [employer] [facility] Not Available Not Available 06/28/2024 17:40:48 06/08/1906/08/2024 Compr ehens chetna metab olic 2000 panel - Serum or Plasm a carbon dioxide, total [moles/volum e] in serum or plasma 24 mmol/ L low: 22mmol /Lhigh : 29mmol /L CO2 24 22 - 29 mmol/ L 06/08 5:17 PM [facility] Not Available Not Available 06/28/2024 17:40:48 06/08/1906/08/2024 Compr ehens chetna metab olic 1999 panel - Serum or Plasm a calcium [mass/volume ] in serum or plasma 8.1 mg/dL low: 8.4mg/ dLhigh : 10.4mg /dL low Calci um 8.1 (L) 8.4 - 10.4 mg/dL 06/08 5:17 PM [facility] Not Available Not Available 06/28/2024 17:40:48 06/08/19 25 06/08/2024 Compr ehens chetna metab olic 2000 panel - Serum or Plasm a anion gap in blood 7 mmol/ L low: 6mmol/ Lhigh: 16mmol /L Anion Gap 7 6 - 16 mmol/ L 06/08 5:17 PM [employer] [facility] Not Available Not Available 06/28/2024 17:40:48 06/08/1906/08/2024 Compr ehens chetna metab olic 1999 panel - Serum or Plasm a urea nitrogen [mass/volume ] in serum or plasma 16 mg/dL low: 7mg/dL high: 26mg/d L BUN 16 7 - 26 mg/dL 06/08 5:17 PM [employer] [facility] Not Available Not Available 06/28/2024 17:40:48 06/08/1906/08/2024 Compr ehens chetna metab olic 1999 panel - Serum or Plasm a creatinine [mass/volume ] in serum or plasma 0.88 mg/dL low: 0.72mg /dLhig h: 1.25mg /dL Creat inine 0.88 0.72 - 1.25 mg/dL 06/08 5:17 PM [employer] [facility] Not Available Not Available 06/28/2024 17:40:48 06/08/1906/08/2024 Compr ehens chetna metab olic 1999 panel - Serum or Plasm a alkaline phosphatase [enzymatic activity/vol ume] in serum or plasma 71 U/L low: 40U/Lh igh: 150U/L Alkal ine Phosp hatas e 71 40 - 150 U/L 06/08 5:17 PM [employer] [facility] Not Available Not Available 06/28/2024 17:40:48 06/08/1906/08/2024 Compr ehens chetna metab olic 1999 panel - Serum or Plasm a alanine aminotransfe rase [enzymatic activity/vol ume] in serum or plasma 13 U/L low: 0U/Lhi gh: 55U/L ALT 13 0 - 55 U/L 06/08 5:17 PM [employer] [facility] Not Available Not Available 06/28/2024 17:40:48 06/08/19 25 06/08/2024 Compr ehens chetna metab olic 1999 panel - Serum or Plasm a aspartate aminotransfe rase [enzymatic activity/vol ume] in serum or plasma 20 U/L low: 5U/Lhi gh: 34U/L AST 20 5 - 34 U/L 06/08 5:17 PM [employer] [facility] Not Available Not Available 06/28/2024 17:40:48 06/08/1906/08/2024 Compr [employer] [facility] [employer]Room 2000 panel - Serum or Plasm a protein [mass/volume ] in serum or plasma 5.7 text: 6.4 - 8.3 gm/dL low Prote in Total 5.7 (L) 6.4 - 8.3 gm/dL 06/08 5:17 PM [employer] [facility] Not Available Not Available 06/28/2024 17:40:48 06/08/1906/08/2024 Compr [employer] 2000 panel - Serum or Plasm a albumin [mass/volume ] in serum or plasma 2.9 text: 3.4 - 5.0 gm/dL low Album in 2.9 (L) 3.4 - 5.0 gm/dL 06/08 5:17 PM [employer] [facility] Not Available Not Available 06/28/2024 17:40:48 06/08/1906/08/2024 Compr [employer] [facility] [employer] 2000 panel - Serum or Plasm a bilirubin.to kathi [mass/volume ] in serum or plasma 3 mg/dL low: 0.2mg/ dLhigh : 1.2mg/ dL high Bilir ubin Total 3.0 (H) 0.2 - 1.2 mg/dL 06/08 5:17 PM [employer] [facility] Not Available Not Available 06/28/2024 17:40:48 06/08/1906/08/2024 Compr [employer] 2000 panel - Serum or Plasm a glomerular filtration rate/1.73 sq M.predicted [volume rate/area] in serum, plasma or blood by creatinine-b ased formula (CKD-epi 2020) text: >=90 mL/min /1.73 m2 eGFR by CKD-E PI >90 >=90 mL/mi n/1.7 3 m2 06/08 5:17 PM [employer] [facility] Not Available Not Available 06/28/2024 17:40:48 06/08/1906/08/2024 Compr ehens chetna metab olic 2000 panel - Serum or Plasm a interpretati on and review of laboratory results Abnorm al Not Available Not Available 17:40:48 06/08/1906/08/2024 CBC W Auto Diffkasie villegas panel - Blood leukocytes [#/volume] in blood by automated count 4.2 text: 4.0 - 10.7 x10e9/ L WBC 4.2 4.0 - 10.7 x10E9 /L 06/08 5:12 PM [employer] [facility] Not Available Not Available 06/28/2024 17:40:43 06/08/1906/08/2024 CBC W Auto Diffe easton villegas panel - Blood erythrocytes [#/volume] in blood by automated count 5.01 text: 4.30 - 5.80 x10e12 /L RBC Count 5.01 4.30 - 5.80 x10E1 2/L 06/08 5:12 PM [employer] [facility] Not Available Not Available 06/28/2024 17:40:43 06/08/1906/08/2024 CBC W Auto Diffe easton villegas panel - Blood hemoglobin [mass/volume ] in blood 14.8 g/dL low: 13.3g/ dLhigh : 17.5g/ dL Hemog lobin 14.8 13.3 - 17.5 g/dL 06/08 5:12 PM [employer] [facility] Not Available Not Available 06/28/2024 17:40:43 06/08/1906/08/2024 CBC W Auto Diffe easton villegas panel - Blood hematocrit [volume fraction] of blood by automated count 42.1 % low: 38.7%h igh: 51.1% Hemat ocrit 42.1 38.7 - 51.1 % 06/08 5:12 PM [employer] [facility] Not Available Not Available 06/28/2024 17:40:43 06/08/1906/08/2024 CBC W Auto Diffe easton villegas panel - Blood MCV [entitic volume] by automated count 84 fL low: 80fLhi gh: 98fL MCV 84.0 80.0 - 98.0 fL 06/08 5:12 PM [employer] [facility] Not Available Not Available 06/28/2024 17:40:43 06/08/1906/08/2024 CBC W Auto Diffe renti al panel - Blood MCH [entitic mass] by automated count 29.5 pg low: 26.7pg high: 33.6pg MCH 29.5 26.7 - 33.6 pg 06/08 5:12 PM [employer] [facility] Not Available Not Available 06/28/2024 17:40:43 06/08/1906/08/2024 CBC W Auto Diffe jose alfredoti al panel - Blood MCHC [mass/volume ] by automated count 35.2 g/dL low: 31.7g/ dLhigh : 36.3g/ dL MCHC 35.2 31.7 - 36.3 g/dL 06/08 5:12 PM [employer] [facility] Not Available Not Available 06/28/2024 17:40:43 06/08/1906/08/2024 CBC W Auto Diffe easton al panel - Blood erythrocyte distribution width [ratio] by automated count 15.9 % low: 11.3%h igh: 14.8% high RDW-C V 15.9 (H) 11.3 - 14.8 % 06/08 5:12 PM [employer] [facility] Not Available Not Available 06/28/2024 17:40:43 06/08/1906/08/2024 CBC W Auto Diffe jose alfredoti al panel - Blood platelets [#/volume] in blood by automated count 67 text: 150 - 420 x10e9/ L low Plate let Count 67 (L) 150 - 420 x10E9 /L 06/08 5:12 PM [employer] [facility] Not Available Not Available 06/28/2024 17:40:43 06/08/1906/08/2024 CBC W Auto Diffe renti al panel - Blood platelet mean volume [entitic volume] in blood by automated count 10.4 fL low: 7.8fLh igh: 11.4fL MPV 10.4 7.8 - 11.4 fL 06/08 5:12 PM [employer] [facility] Not Available Not Available 06/28/2024 17:40:43 06/08/1906/08/2024 CBC W Auto Diffe renti al panel - Blood neutrophils/ 100 leukocytes in blood by automated count 67.5 % low: 41%hig h: 74% Neutr ophil % 67.5 41.0 - 74.0 % 06/08 5:12 PM [employer] [facility] Not Available Not Available 06/28/2024 17:40:43 06/08/1906/08/2024 CBC W Auto Diffe renti al panel - Blood lymphocytes/ 100 leukocytes in blood by automated count 15.4 % low: 17%hig h: 47% low Lymph ocyte % 15.4 (L) 17.0 - 47.0 % 06/08 5:12 PM [employer] [facility] Not Available Not Available 06/28/2024 17:40:43 06/08/1906/08/2024 CBC W Auto Diffe renti al panel - Blood monocytes/10 0 leukocytes in blood by automated count 15.9 % low: 3%high : 11% high Monoc yte % 15.9 (H) 3.0 - 11.0 % 06/08 5:12 PM [employer] [facility] Not Available Not Available 06/28/2024 17:40:43 06/08/1906/08/2024 CBC W Auto Diffe renti al panel - Blood eosinophils/ 100 leukocytes in blood by automated count 0 % low: 0%high : 7% Eosin ophil % 0.0 0.0 - 7.0 % 06/08 5:12 PM [employer] [facility] Not Available Not Available 06/28/2024 17:40:43 06/08/1906/08/2024 CBC W Auto Diffe renti al panel - Blood basophils/10 0 leukocytes in blood by automated count 0.7 % low: 0%high : 1.6% Basop hil % 0.7 0.0 - 1.6 % 06/08 5:12 PM [employer] [facility] Not Available Not Available 06/28/2024 17:40:43 06/08/1906/08/2024 CBC W Auto Diffe renti al panel - Blood immature granulocytes /100 leukocytes in blood by automated count 0.5 % low: 0%high : 1% Immat ure Granu locyt es % 0.5 0.0 - 1.0 % 06/08 5:12 PM [employer] [facility] Not Available Not Available 06/28/2024 17:40:43 06/08/1906/08/2024 CBC W Auto Diffe renti al panel - Blood neutrophils [#/volume] in blood by automated count 2.8 text: 1.60 - 7.50 x10e9/ L Neutr ophil Absol kobuk 2.80 1.60 - 7.50 x10E9 /L 06/08 5:12 PM [employer] [facility] Not Available Not Available 06/28/2024 17:40:43 06/08/1906/08/2024 CBC W Auto Diffe renti al panel - Blood lymphocytes [#/volume] in blood by automated count 0.64 text: 1.00 - 4.40 x10e9/ L low Lymph ocyte Absol kobuk 0.64 (L) 1.00 - 4.40 x10E9 /L 06/08 5:12 PM [employer] [facility] Not Available Not Available 06/28/2024 17:40:43 06/08/1906/08/2024 CBC W Auto Diffe renti al panel - Blood monocytes [#/volume] in blood by automated count 0.66 text: 0.15 - 1.00 x10e9/ L Monoc yte Absol kobuk 0.66 0.15 - 1.00 x10E9 /L 06/08 5:12 PM [employer] [facility] Not Available Not Available 06/28/2024 17:40:43 06/08/1906/08/2024 CBC W Auto Diffe renti al panel - Blood eosinophils [#/volume] in blood 0 text: 0.00 - 0.60 x10e9/ L Eosin ophil Absol kobuk 0.00 0.00 - 0.60 x10E9 /L 06/08 5:12 PM [employer] [facility] Not Available Not Available 06/28/2024 17:40:43 06/08/1906/08/2024 CBC W Auto Diffe renti al panel - Blood basophils [#/volume] in blood by automated count 0.03 text: 0.00 - 0.13 x10e9/ L Basop hil Absol kobuk 0.03 0.00 - 0.13 x10E9 /L 06/08 5:12 PM [employer] [facility] Not Available Not Available [...] 345 (H) <=100 pg/mL 06/08 5:19 PM [employer] [facility] Not Available Not Available [...] 70 - 99 mg/dL 06/09 8:23 AM [employer] [facility] Not Available Not Available 06/28/2024 17:40:48 06/08/19 25 06/09/2024 Gluco se [Mass /volu me] in Arter ial blood specimen source identified Cap Finger stick Speci men Type Cap Finge rstic k 06/09 8:23 AM [employer] [facility] Not Available Not Available [...] 70 - 99 mg/dL 06/09 9:47 PM [employer] [facility] Not Available Not Available 06/28/2024 17:40:48 06/09/19 25 06/09/2024 Gluco se [Mass /volu me] in Arter ial blood specimen source identified Cap Finger stick Speci men Type Cap Finge rstic k 06/09 9:47 PM [employer] [facility] Not Available Not Available [...] 70 - 99 mg/dL 06/09 5:57 PM [employer] [facility] Not Available Not Available 06/28/2024 17:40:48 06/09/19 25 06/09/2024 Gluco se [Mass /volu me] in Arter ial blood specimen source identified Cap Finger stick Speci men Type Cap Finge rstic k 06/09 5:57 PM [employer] [facility] Not Available Not Available [...] 70 - 99 mg/dL 06/09 1:54 PM [employer] [facility] Not Available Not Available 06/28/2024 17:40:48 06/09/1906/09/2024 Gluco se [Mass /volu me] in Arter ial blood specimen source identified Cap Finger stick Speci men Type Cap Lanie rstic k 06/09 1:54 PM [employer] [facility] Not Available Not Available [...] 70 - 99 mg/dL 06/09 8:24 AM [employer] [facility] Not Available Not Available 06/28/2024 17:40:48 06/09/19 25 06/09/2024 Gluco se [Mass /volu me] in Arter ial blood specimen source identified Cap Finger stick Speci men Type Cap Lanie rstic k 06/09 8:24 AM [employer] [facility] Not Available Not Available [...] 70 - 99 mg/dL 06/09 8:24 AM [employer] [facility] Not Available Not Available 06/28/2024 17:40:48 06/09/1906/09/2024 Gluco se [Mass /volu me] in Arter ial blood specimen source identified Cap Finger stick Speci men Type Cap Finge rstic k 06/09 8:24 AM [employer] [facility] Not Available Not Available 06/28/2024 17:40:48 06/09/1906/09/2024 Gluco se [Mass /volu me] in Arter ial blood interpretati on and review of laboratory results Abnorm al Not Available Not Available 17:40:48 06/09/1906/09/2024 CBC panel - Blood by Autom ated count leukocytes [#/volume] in blood by automated count 3 text: 4.0 - 10.7 x10e9/ L low WBC 3.0 (L) 4.0 - 10.7 x10E9 /L 06/09 2:37 AM [employer] [facility] Not Available Not Available 06/28/2024 17:40:48 06/09/1906/09/2024 CBC panel - Blood by Autom ated count erythrocytes [#/volume] in blood by automated count 4.95 text: 4.30 - 5.80 x10e12 /L RBC Count 4.95 4.30 - 5.80 x10E1 2/L 06/09 2:37 AM [employer] [facility] Not Available Not Available 06/28/2024 17:40:48 06/09/1906/09/2024 CBC panel - Blood by Autom ated count hemoglobin [mass/volume ] in blood 14.8 g/dL low: 13.3g/ dLhigh : 17.5g/ dL Hemog lobin 14.8 13.3 - 17.5 g/dL 06/09 2:37 AM [employer] [facility] [facility] Not Available Not Available 06/28/2024 17:40:48 06/09/1906/09/2024 CBC panel - Blood by Autom ated count hematocrit [volume fraction] of blood by automated count 42 % low: 38.7%h igh: 51.1% Hemat ocrit 42.0 38.7 - 51.1 % 06/09 2:37 AM [facility] Not Available Not Available 06/28/2024 17:40:48 06/09/1906/09/2024 CBC panel - Blood by Autom ated count MCV [entitic volume] by automated count 84.8 fL low: 80fLhi gh: 98fL MCV 84.8 80.0 - 98.0 fL 06/09 2:37 AM [facility] Not Available Not Available 06/28/2024 17:40:48 06/09/1906/09/2024 CBC panel - Blood by Autom ated count MCH [entitic mass] by automated count 29.9 pg low: 26.7pg high: 33.6pg MCH 29.9 26.7 - 33.6 pg 06/09 2:37 AM [facility] Not Available Not Available 06/28/2024 17:40:48 06/09/1906/09/2024 CBC panel - Blood by Autom ated count MCHC [mass/volume ] by automated count 35.2 g/dL low: 31.7g/ dLhigh : 36.3g/ dL MCHC 35.2 31.7 - 36.3 g/dL 06/09 2:37 AM [facility] Not Available Not Available 06/28/2024 17:40:48 06/09/1906/09/2024 CBC panel - Blood by Autom ated count erythrocyte distribution width [ratio] by automated count 15.7 % low: 11.3%h igh: 14.8% high RDW-C V 15.7 (H) 11.3 - 14.8 % 06/09 2:37 AM [facility] Not Available Not Available 06/28/2024 17:40:48 06/09/1906/09/2024 CBC panel - Blood by Autom ated count platelets [#/volume] in blood by automated count 67 text: 150 - 420 x10e9/ L low Plate let Count 67 (L) 150 - 420 x10E9 /L 06/09 2:37 AM [employer] [facility] Not Available Not Available 06/28/2024 17:40:48 06/09/1906/09/2024 CBC panel - Blood by Autom ated count platelet mean volume [entitic volume] in blood by automated count 11.8 fL low: 7.8fLh igh: 11.4fL high MPV 11.8 (H) 7.8 - 11.4 fL 06/09 2:37 AM [employer] [facility] Not Available Not Available 06/28/2024 17:40:48 [...] - 4.940 uIU/m L 06/09 2:56 AM [employer] [facility] Not Available Not Available 06/28/2024 17:40:43 06/09/1906/09/2024 Thyro tropi n [Unit s/vol ume] in Serum or Plasm a interpretati on and review of laboratory results Normal Not Available Not Available 06/05 17:40:43 06/09/1906/09/2024 Hemog lobin A1c/H emogl obin. total in Blood hemoglobin A1C/hemoglob in.total in blood 9.1 % high: 5.7% high Hemog lobin A1c 9.1 (H) <5.7 % 06/09 2:28 AM [facility] Not Available Not Available 06/28/2024 17:40:43 06/09/1906/09/2024 Hemog lobin A1c/H emogl obin. total in Blood glucose mean value [mass/volume ] in blood estimated from glycated hemoglobin 214 mg/dL Estim ated [place] [facility] Gluco se 214 mg/dL 02/06 /2025 2:28 AM [employer] [facility] Not Available Not Available [...] d. Not Available Not Available 06/28/2024 17:40:43 06/09/1906/09/2024 Hemog lobin A1c/H emogl obin. total in Blood interpretati on and review of laboratory results Abnorm al Not Available Not Available 17:40:43 06/09/1906/09/2024 Compr ehens chetna metab olic 2000 panel - Serum or Plasm a glucose [mass/volume ] in serum or plasma 220 mg/dL low: 70mg/d Lhigh: 99mg/d L high Gluco se 220 (H) 70 - 99 mg/dL 06/09 3:01 AM [employer] [facility] Not Available Not Available 06/28/2024 17:40:42 06/09/19 25 06/09/2024 Compr ehens chetna metab olic 1999 panel - Serum or Plasm a sodium [moles/volum e] in serum or plasma 134 mmol/ L low: 136mmo l/Lhig h: 145mmo l/L low Sodiu m 134 (L) 136 - 145 mmol/ L 06/09 3:01 AM [facility] [facility] Not Available Not Available 06/28/2024 17:40:42 06/09/19 25 06/09/2024 Compr ehens chetna metab olic 1999 panel - Serum or Plasm a potassium [moles/volum e] in serum or plasma 4.2 mmol/ L low: 3.5mmo l/Lhig h: 5.1mmo l/L Potas sium 4.2 3.5 - 5.1 mmol/ L 06/09 3:01 AM [facility] [employer] ATORY Not Available Not Available 06/28/2024 17:40:42 06/09/19 25 06/09/2024 Compr ehens chetna metab olic 1999 panel - Serum or Plasm a chloride [moles/volum e] in serum or plasma 104 mmol/ L low: 98mmol /Lhigh : 107mmo l/L Chlor james 104 98 - 107 mmol/ L 06/09 3:01 AM [facility] [employer] ATORY Not Available Not Available 06/28/2024 17:40:42 06/09/19 25 06/09/2024 Compr ehens chetna metab olic 1999 panel - Serum or Plasm a carbon dioxide, total [moles/volum e] in serum or plasma 21 mmol/ L low: 22mmol /Lhigh : 29mmol /L low CO2 21 (L) 22 - 29 mmol/ L 06/09 3:01 AM [facility] [employer] ATORY Not Available Not Available 06/28/2024 17:40:42 06/09/19 25 06/09/2024 Compr ehens chetna metab olic 2000 panel - Serum or Plasm a calcium [mass/volume ] in serum or plasma 8.1 mg/dL low: 8.4mg/ dLhigh : 10.4mg /dL low Calci um 8.1 (L) 8.4 - 10.4 mg/dL 06/09 3:01 AM [employer] [facility] ATORY Not Available Not Available 06/28/2024 17:40:42 06/09/19 25 06/09/2024 [employer]pr [employer] [email or web address] panel - Serum or Plasm a anion gap in blood 9 mmol/ L low: 6mmol/ Lhigh: 16mmol /L Anion Gap 9 6 - 16 mmol/ L 06/09 3:01 AM [facility] LABOR ATORY Not Available Not Available 06/28/2024 17:40:42 06/09/19 25 06/09/2024 [employer] chetna NealyWear ic 1999 panel - Serum or Plasm a urea nitrogen [mass/volume ] in serum or plasma 18 mg/dL low: 7mg/dL high: 26mg/d L BUN 18 7 - 26 mg/dL 06/09 3:01 AM [facility] AT[facility] Not Available Not Available 06/28/2024 17:40:42 06/09/1906/09/2024 [employer]pr [employer] chetna[facility]ango ic 1999 panel - Serum or Plasm a creatinine [mass/volume ] in serum or plasma 0.85 mg/dL low: 0.72mg /dLhig h: 1.25mg /dL Creat inine 0.85 0.72 - 1.25 mg/dL 06/09 3:01 AM [facility] AT[facility] Not Available Not Available 06/28/2024 17:40:42 06/09/1906/09/2024 [employer] chetna NealyWear olic 1999 panel - Serum or Plasm a alkaline phosphatase [enzymatic activity/vol ume] in serum or plasma 65 U/L low: 40U/Lh igh: 150U/L Alkal ine Phosp hatas e 65 40 - 150 U/L 06/09 3:01 AM [facility] [employer] ATORY Not Available Not Available 06/28/2024 17:40:42 06/09/19 25 06/09/2024 [employer]pr [employer] chetna metab olic 2000 panel - Serum or Plasm a alanine aminotransfe rase [enzymatic activity/vol ume] in serum or plasma 14 U/L low: 0U/Lhi gh: 55U/L ALT 14 0 - 55 U/L 06/09 3:01 AM [employer] ATORY Not Available Not Available 06/28/2024 17:40:42 06/09/19 25 06/09/2024 [employer]pr [employer] chetna [email or web address] 2000 panel - Serum or Plasm a aspartate aminotransfe rase [enzymatic activity/vol ume] in serum or plasma 50 U/L low: 5U/Lhi gh: 34U/L high AST 50 (H) 5 - 34 U/L 06/09 3:01 AM [employer] ATORY Not Available Not Available 06/28/2024 17:40:42 06/09/1906/09/2024 [employer] chetna Bilbusic 2000 panel - Serum or Plasm a protein [mass/volume ] in serum or plasma 5.8 text: 6.4 - 8.3 gm/dL low Prote in Total 5.8 (L) 6.4 - 8.3 gm/dL 06/09 3:01 AM [employer] ATORY Not Available Not Available 06/28/2024 17:40:42 06/09/19 25 06/09/2024 [employer] che[employer]na [email or web address] 2000 panel - Serum or Plasm a albumin [mass/volume ] in serum or plasma 2.8 text: 3.4 - 5.0 gm/dL low Album in 2.8 (L) 3.4 - 5.0 gm/dL 06/09 3:01 AM [employer] ATORY Not Available Not Available 06/28/2024 17:40:42 06/09/19 25 06/09/2024 [employer] che[employer]na [email or web address] 2000 panel - Serum or Plasm a bilirubin.to kathi [mass/volume ] in serum or plasma 3.2 mg/dL low: 0.2mg/ dLhigh : 1.2mg/ dL high Bilir ubin Total 3.2 (H) 0.2 - 1.2 mg/dL 06/09 3:01 AM [facility] ATORY Not Available Not Available 06/28/2024 17:40:42 06/09/19 25 06/09/2024 Com[employer] che[employer]na NealyWear olic 2000 panel - Serum or Plasm a glomerular filtration rate/1.73 sq M.predicted [volume rate/area] in serum, plasma or blood by creatinine-b ased formula (CKD-epi 2020) text: >=90 mL/min /1.73 m2 eGFR by CKD-E PI >90 >=90 mL/mi n/1.7 3 m2 06/09 3:01 AM [employer] [facility] [employer] LAB[facility] ATORY Not Available Not Available 06/28/2024 17:40:42 06/09/1906/09/2024 Compr ehens chetna metab olic 1999 panel - Serum or Plasm a interpretati on and review of laboratory results Abnorm al Not Available Not Available 17:40:42 06/09/1906/09/2024 Phosp hate [Mass /volu me] in Serum or Plasm a phosphate [mass/volume ] in serum or plasma 3.1 mg/dL low: 2.5mg/ dLhigh : 4.5mg/ dL Phosp horus 3.1 2.5 - 4.5 mg/dL 06/09 2:40 AM [employer] [employer] LAB[facility] ATORY Not Available Not Available 06/28/2024 17:40:42 06/09/19 25 06/09/2024 Phosp hate [Mass /volu me] in Serum or Plasm a interpretati on and review of laboratory results Normal Not Available Not Available 06/05 17:40:42 06/09/19 25 06/09/2024 Magne sium [Mass /volu me] in Serum or Plasm a magnesium [mass/volume ] in serum or plasma 1.7 mg/dL low: 1.6mg/ dLhigh : 2.6mg/ dL Magne sium 1.7 1.6 - 2.6 mg/dL 06/09 2:40 AM [employer] [employer] LAB[facility] ATORY Not Available Not Available 06/28/2024 17:40:42 06/09/19 25 06/09/2024 Magne sium [Mass /volu me] in Serum or Plasm a interpretati on and review of laboratory results Normal Not Available Not Available 06/05 17:40:42 06/09/19 25 06/09/2024 Lipid 1996 panel - Serum or Plasm a cholesterol [mass/volume ] in serum or plasma 69 mg/dL high: 200mg/ dL Loretta stero l 69 <200 mg/dL 06/09 2:40 AM [facility] ATORY Not Available Not Available 06/28/2024 17:40:42 06/09/19 25 06/09/2024 Lipid 1996 panel - Serum or Plasm a triglyceride [mass/volume ] in serum or plasma 99 mg/dL high: 150mg/ dL Trigl yceri patricia 99 <150 mg/dL 06/09 2:40 AM [facility] ATORY Not Available Not Available 06/28/2024 17:40:42 06/09/19 25 06/09/2024 Lipid 1996 panel - Serum or Plasm a cholesterol in HDL [mass/volume ] in serum or plasma 19 mg/dL low: 40mg/d L low HDL Loretta stero l 19 (L) >40 mg/dL 06/09 2:40 AM [facility] ATORY Not Available Not Available 06/28/2024 17:40:42 06/09/19 25 06/09/2024 Lipid 1996 panel - Serum or Plasm a cholesterol in LDL [mass/volume ] in serum or plasma by calculation 30 mg/dL high: 130mg/ dL LDL Calcu lated 30 <130 mg/dL 06/09 2:40 AM [facility] ATORY Not Available Not Available 06/28/2024 17:40:42 06/09/19 25 06/09/2024 Lipid 1996 panel - Serum or Plasm a cholesterol in VLDL [mass/volume ] in serum or plasma by calculation 20 mg/dL high: 30mg/d L VLDL Calcu lated 20 <=30 mg/dL 06/09 2:40 AM [facility] ATORY Not Available Not Available 06/28/2024 17:40:42 06/09/19 25 06/09/2024 Lipid 1996 panel - Serum or Plasm a cholesterol. total/choles terol in HDL [mass ratio] in serum or plasma 3.6 high: 4.5 Chol HDL Ratio 3.6 <4.5 06/09 2:40 AM [facility] ATORY Not Available Not Available 06/28/2024 17:40:42 02/0606/09/2024 Lipid 1996 panel - Serum or Plasm a cholesterol in LDL/choleste rol in HDL [mass ratio] in serum or plasma 1.6 high: 5 LDL/H DL Ratio 1.6 <5.0 06/09 2:40 AM [employer] [facility] LAB[facility] ATORY Not Available Not Available 06/28/2024 17:40:42 06/09/19 25 06/09/2024 Lipid 1996 panel - Serum or Plasm a interpretati on and review of laboratory results Abnorm al Not Available Not Available 17:40:42 06/10/1906/10/2024 Gluco se [Mass /volu me] in Arter ial blood glucose [mass/volume ] in capillary blood by glucometer 159 mg/dL low: 70mg/d Lhigh: 99mg/d L high Gluco se WB/PO C 159 (H) 70 - 99 mg/dL 06/10 12:53 PM [employer] [facility] ATORY Not Available Not Available 06/28/2024 17:40:43 06/10/19 25 06/10/2024 Gluco se [Mass /volu me] in Arter ial blood specimen source identified Cap Finger stick Speci men Type Cap Finge rstic k 06/10 12:53 PM [employer] LAB[facility] ATORY Not Available Not Available 06/28/2024 [...] 70 - 99 mg/dL 06/10 1:24 PM [employer] [facility] ATORY Not Available Not Available 06/28/2024 17:40:48 06/10/19 25 06/10/2024 Gluco se [Mass /volu me] in Arter ial blood specimen source identified Cap Finger stick Speci men Type Cap Finge rstic k 06/10 1:24 PM [employer] [facility] ATORY Not Available Not Available 06/28/2024 17:40:48 06/10/1906/10/2024 Gluco se [Mass /volu me] in Arter ial blood interpretati on and review of laboratory results Abnorm al Not Available Not Available 17:40:48 06/10/1906/10/2024 Gluco se [Mass /volu me] in Arter ial blood glucose [mass/volume ] in capillary blood by glucometer 86 mg/dL low: 70mg/d Lhigh: 99mg/d L Gluco se WB/PO C 86 70 - 99 mg/dL 06/10 7:16 AM [employer] [facility] ATORY Not Available Not Available 06/28/2024 17:40:48 06/10/1906/10/2024 Gluco se [Mass /volu me] in Arter ial blood specimen source identified Cap Finger stick Speci men Type Vincent De Paz rstic k 06/10 7:16 AM [employer] [facility] ATORY Not Available Not Available 06/28/2024 17:40:48 06/10/1906/10/2024 Gluco se [Mass /volu me] in Arter ial blood glucose [mass/volume ] in capillary blood by glucometer 74 mg/dL low: 70mg/d Lhigh: 99mg/d L Gluco se WB/PO C 74 70 - 99 mg/dL 06/10 6:43 AM [employer] [facility] ATORY Not Available Not Available 06/28/2024 17:40:48 06/10/1906/10/2024 Gluco se [Mass /volu me] in Arter ial blood specimen source identified Cap Finger stick Speci men Type Cap Zandra rstic k 06/10 6:43 AM [employer] [facility] ATORY Not Available Not Available 06/28/2024 17:40:48 06/10/1906/10/2024 CBC panel - Blood by Autom ated count leukocytes [#/volume] in blood by automated count 2.3 text: 4.0 - 10.7 x10e9/ L low WBC 2.3 (L) 4.0 - 10.7 x10E9 /L 06/10 5:36 AM [facility] ATORY Not Available Not Available 06/28/2024 17:40:43 06/10/1906/10/2024 CBC panel - Blood by Autom ated count erythrocytes [#/volume] in blood by automated count 4.44 text: 4.30 - 5.80 x10e12 /L RBC Count 4.44 4.30 - 5.80 x10E1 2/L 06/10 5:36 AM [facility] ATORY Not Available Not Available 06/28/2024 17:40:43 06/10/1906/10/2024 CBC panel - Blood by Autom ated count hemoglobin [mass/volume ] in blood 13.2 g/dL low: 13.3g/ dLhigh : 17.5g/ dL low Hemog lobin 13.2 (L) 13.3 - 17.5 g/dL 06/10 5:36 AM [facility] ATORY Not Available Not Available 06/28/2024 17:40:43 06/10/1906/10/2024 CBC panel - Blood by Autom ated count hematocrit [volume fraction] of blood by automated count 37.8 % low: 38.7%h igh: 51.1% low Hemat ocrit 37.8 (L) 38.7 - 51.1 % 06/10 5:36 AM [facility] ATORY Not Available Not Available 06/28/2024 17:40:43 06/10/1906/10/2024 CBC panel - Blood by Autom ated count MCV [entitic volume] by automated count 85.1 fL low: 80fLhi gh: 98fL MCV 85.1 80.0 - 98.0 fL 06/10 5:36 AM [facility] ATORY Not Available Not Available 06/28/2024 17:40:43 06/10/1906/10/2024 CBC panel - Blood by Autom ated count MCH [entitic mass] by automated count 29.7 pg low: 26.7pg high: 33.6pg MCH 29.7 26.7 - 33.6 pg 06/10 5:36 AM [employer] [facility] ATORY Not Available Not Available 06/28/2024 17:40:43 06/10/1906/10/2024 CBC panel - Blood by Autom ated count MCHC [mass/volume ] by automated count 34.9 g/dL low: 31.7g/ dLhigh : 36.3g/ dL MCHC 34.9 31.7 - 36.3 g/dL 06/10 5:36 AM [employer] [facility] LAB[facility] ATORY Not Available Not Available 06/28/2024 17:40:43 06/10/1906/10/2024 CBC panel - Blood by Autom ated count erythrocyte distribution width [ratio] by automated count 15.2 % low: 11.3%h igh: 14.8% high RDW-C V 15.2 (H) 11.3 - 14.8 % 06/10 5:36 AM [facility] LAB[facility] ATORY Not Available Not Available 06/28/2024 17:40:43 06/10/1906/10/2024 CBC panel - Blood by Autom ated count platelets [#/volume] in blood by automated count 64 text: 150 - 420 x10e9/ L low Plate let Count 64 (L) 150 - 420 x10E9 /L 06/10 5:36 AM [facility] ATORY Not Available Not Available 06/28/2024 17:40:43 06/10/1906/10/2024 CBC panel - Blood by Autom ated count platelet mean volume [entitic volume] in blood by automated count 10.9 fL low: 7.8fLh igh: 11.4fL MPV 10.9 7.8 - 11.4 fL 06/10 5:36 AM [facility] ATORY Not Available Not [...] 70 - 99 mg/dL 06/10 5:25 AM [facility] [employer] ATORY Not Available Not Available 06/28/2024 17:40:42 06/10/1906/10/2024 Basic metab olic 1999 panel - Serum or Plasm a sodium [moles/volum e] in serum or plasma 139 mmol/ L low: 136mmo l/Lhig h: 145mmo l/L Sodiu m 139 136 - 145 mmol/ L 06/10 5:25 AM [facility] [employer] ATORY Not Available Not Available 06/28/2024 17:40:42 06/10/1906/10/2024 Basic metab olic 1999 panel - Serum or Plasm a potassium [moles/volum e] in serum or plasma 3.4 mmol/ L low: 3.5mmo l/Lhig h: 5.1mmo l/L low Potas sium 3.4 (L) 3.5 - 5.1 mmol/ L 06/10 5:25 AM [facility] [employer] ATORY Not Available Not Available 06/28/2024 17:40:42 06/10/1906/10/2024 Basic metab olic 1999 panel - Serum or Plasm a chloride [moles/volum e] in serum or plasma 107 mmol/ L low: 98mmol /Lhigh : 107mmo l/L Chlor james 107 98 - 107 mmol/ L 06/10 5:25 AM [facility] [employer] ATORY Not Available Not Available 06/28/2024 17:40:42 06/10/1906/10/2024 Basic metab olic 1999 panel - Serum or Plasm a carbon dioxide, total [moles/volum e] in serum or plasma 22 mmol/ L low: 22mmol /Lhigh : 29mmol /L CO2 22 22 - 29 mmol/ L 06/10 5:25 AM [facility] [employer] ATORY Not Available Not Available 06/28/2024 17:40:42 06/10/1906/10/2024 Basic metab olic 2000 panel - Serum or Plasm a calcium [mass/volume ] in serum or plasma 8.2 mg/dL low: 8.4mg/ dLhigh : 10.4mg /dL low Calci um 8.2 (L) 8.4 - 10.4 mg/dL 06/10 5:25 AM [facility] ATORY Not Available Not Available 06/28/2024 17:40:42 06/10/1906/10/2024 Basic PlusFourSix 2000 panel - Serum or Plasm a anion gap in blood 10 mmol/ L low: 6mmol/ Lhigh: 16mmol /L Anion Gap 10 6 - 16 mmol/ L 06/10 5:25 AM [facility] ATORY Not Available Not Available 06/28/2024 17:40:42 06/10/1906/10/2024 Basic Bilbusic [email or web address] panel - Serum or Plasm a urea nitrogen [mass/volume ] in serum or plasma 15 mg/dL low: 7mg/dL high: 26mg/d L BUN 15 7 - 26 mg/dL 06/10 5:25 AM [facility] ATORY Not Available Not Available 06/28/2024 17:40:42 06/10/1906/10/2024 [email or web address] panel - Serum or Plasm a creatinine [mass/volume ] in serum or plasma 0.7 mg/dL low: 0.72mg /dLhig h: 1.25mg /dL low Creat inine 0.70 (L) 0.72 - 1.25 mg/dL 06/10 5:25 AM [facility] ATORY Not Available Not Available 06/28/2024 17:40:42 06/10/1906/10/2024 Basic Bilbusic 2000 panel - Serum or Plasm a glomerular filtration rate/1.73 sq M.predicted [volume rate/area] in serum, plasma or blood by creatinine-b ased formula (CKD-epi 2020) text: >=90 mL/min /1.73 m2 eGFR by CKD-E PI >90 >=90 mL/mi n/1.7 3 m2 06/10 5:25 AM [facility] ATORY Not Available Not Available 06/28/2024 17:40:42 06/10/19 25 06/10/2024 Basic [employer] olic 2000 panel - Serum or Plasm a interpretati on and review of laboratory results Abnorm al Not Available Not Available 17:40:42 02/24/20 02/23/2024 XR, abdom [facility] [address] [place], [address], 02/24/2024 08:59:19 04/17/20 24 04/16/2024 MRI, lumba r spine , w/o contr ast No observ ation record ed. [facility] [address] [place], [address], 04/18/2024 12:31:37 06/08/19 25 06/08/2024 XR, chest No observ [facility]ion record ed[facility] [address] [place], [address], 06/08/2024 08:55:38 07/28/19 25 07/27/2024 XR, skull No observ ation record ed. [facility] [address] [place], [address], 07/28/2024 09:56:58 Result Notes None recorded. Problems Name Problem SNOMED Code Status Onset Date Resolution Date Notes Provider Name and Address Organization Details Recorded Time Diabetes mellitus 21087158 Active 2018 [facility] [place], [place] [facility] 10:51:15 Liver finding 940736424 Active 2018 [facility] [place] [facility] 10:51:15 Hyperglycem ia due to type 2 diabetes mellitus 4507748390873 09 Active [facility] [place] [facility] 4 09:09:59 Type 2 diabetes mellitus in obese 51106330 Active [facility] [place] [facility] 10:51:15 Bacteremia 6709554 Active [facility] [place] [facility] 10:51:15 Gastroesoph ageal reflux disease 648441422 Active [facility] [place] [facility] 10:51:15 Abscess 494053541 Active [facility] [place] [facility] 1 10:51:15 Backache 892776445 Active [facility] [place] [facility] 10:51:15 Hepatic failure 68704412 Active [facility] [place] [facility] 1 10:51:15 Problem Notes None recorded. Procedures Surgical History Date Name Laterality Status Provider Name and Address Organization Details Recorded Time 6 colonoscopy completed Amanda BrennanBEBO [place] [facility] 11/15/2021 15:39:15 Imaging Results Imaging Date Name Status LastModified by Organiz ation Details LastModified Time 02/23/2024 XR, abdomen completed [facility] [address] [place], [address], 02/24/2024 08:59:19 04/16/2024 MRI, lumbar spine, w/o contrast completed [facility] [address] [place], [address], 04/18/2024 12:31:37 06/08/2024 XR, chest completed [facility] [address] [place], [address], 06/08/2024 08:55:38 07/27/2024 XR, skull completed [facility] [address] [place], [address], 07/28/2024 09:56:58 Procedure Notes None recorded. Medical Equipment None Reported. Allergies Allergen ID Allergen Name Allergen Category Reaction Reaction Severity Criticality Documentation Date Start Date Code Code System Note Provider Name and Address Organization Details Recorded Time 914583 Product containin g penicilli n (product) medicatio n Not available Not available Not available 12/16/2017 32512 8001 SNOMED Juliameliza Guerrier MA [place], [place] - [facility] 8 11:58:06 654115 Substance with sulfonami de structure and antibacte rial mechanism of action (substanc e) medicatio n Not available Not available Not available 12/16/2017 63065 8003 SNOMED [facility] [place], [place] - [facility] 8 11:58:12 620298 Nexium medicatio n Not available Not available Not available 12/16/2017 47032 9 RxNo[facility]BO [place], [facility] 8 11:58:19 980637 erythromy roxana medicatio n Not available Not available Not available 12/16/2017 4053 RxNo[facility]BO [place], [place] [facility] 8 11:58:25 604865 Iodinated contrast media (substanc e) medicatio n Not available Not available Not available 12/16/2017 31016 2004 SNOMED [facility] [place], [facility] 8 11:58:35 650156 ciproflox acin medicatio n Not available Not available Not available 12/16/2017 2551 RxNorm [facility] [place], [place] [facility] 8 11:58:48 889465 Azactam medicatio n Not available Not available Not available 12/16/2017 69901 1 RxNorm [facility] [place], [place] [facility] 8 11:58:56 495007 aztreonam medicatio n Not available Not available Not available 12/16/2017 1272 RxNorm [facility] [place], [place] [facility] 8 11:59:03 349026 octreotid e Not available Not available Not available Not available 12/16/2017 7617 RxNorm [facility] [place], [place] [facility] 8 11:59:10 139458 duloxetin e medicatio n Not available Not available Not available 12/16/2017 44037 RxNorm [facility] [place], [place] [facility] 8 11:59:19 515633 oxycodone medicatio n other Not available Not available 03/19/2021 7804 RxNorm [facility] Amanda Amin MA null, [place] - [facility] 16:02:30 Medications Name Sig Start Date Stop [...] Available Not Available Not Available OneTouch Ultra Test strips USE FOR TESTING BEFORE [...] Updated DateTime 4 171.45 cm 34.6 kg/m2 890554. 69 g 96 % 96 % 108 /min 121 mm[Hg] 81 mm[Hg] Karina Alvarez MA [facility] 4 11:08:58 Date Recorded Body height Body mass index (BMI) Body weight Oxygen saturation Oxygen saturation in Arterial blood by Pulse oximetry Heart rate Systolic blood pressure Diastolic blood pressure Provider Name and Address Organization Details Last Updated DateTime 4 171.45 cm 34.9 kg/m2 706664. 28 g 95 % 95 % 94 /min 139 mm[Hg] 80 mm[Hg] Karina Alvarez MA [place] - [facility] 4 14:55:26 Date Recorded Body height Body mass index (BMI) Body weight Oxygen saturation Oxygen saturation in Arterial blood by Pulse oximetry Heart rate Systolic blood pressure Diastolic blood pressure Provider Name and Address Organization Details Last Updated DateTime 4 171.45 cm 35 kg/m2 407911. 47 g 97 % 97 % 97 /min 128 mm[Hg] 81 mm[Hg] Karina Alvarez [place] [facility] 4 10:54:27 Date Recorded Body height Body mass index (BMI) Body weight Oxygen saturation Oxygen saturation in Arterial blood by Pulse oximetry Heart rate Systolic blood pressure Diastolic blood pressure Provider Name and Address Organization Details Last Updated DateTime 4 171.45 cm 34.5 kg/m2 936695. 9 g 95 % 95 % 102 /min 149 mm[Hg] 91 mm[Hg] Karina Alvarez MA [place] - [facility] 4 10:09:39 Date Recorded Body height Body mass index (BMI) Body weight Oxygen saturation Oxygen saturation in Arterial blood by Pulse oximetry Heart rate Systolic blood pressure Diastolic blood pressure Provider Name and Address Organization Details Last Updated DateTime 5 171.45 cm 33.9 kg/m2 17807.3 2 g 95 % 95 % 88 /min 120 mm[Hg] 88 mm[Hg] Amanda Amin MA [facility] 5 17:59:35 Social History Question Answer Notes LastModified by Organizat ion Details LastModified Time Tobacco Smoking Status Former Smoker Julia Guerrier MA null, [facility] 12/16/2017 12:02:47 What Is Your Level Of Caffeine Consumption? Moderate Diet Soda Information not available 05/13/2018 How Much Tobacco Do You Chew? None Information not available 05/13/2018 In The 14 Days Before Symptom Onset, Have You Had Close Contact With A Laboratory-confir med COVID-19 While That Case Was Ill? No Information not available 07/25/2020 In The 14 Days Before Symptom Onset, Have You Had Close Contact With A Person Who Is Under Investigation For COVID-19 While That Person Was Ill? No Information not available 07/25/2020 Have You Been To An Area Known To Be High Risk For COVID-19? No Information not available 07/25/2020 What Type Of Diet Are You Following? REGULAR Information not available 05/13/2018 Which Illicit Or Recreational Drugs Have You Used? None Information not available 05/13/2018 Are There Any Guns Present In Your [...] You Passively Exposed To Smoke? No Information no t available 10/27/2022 General Stress Level Medium Information not available 06/08/2020 Do You Use Sunscreen Routinely? No Information not available 10/27/2022 Has Tobacco Cessation Counseling Been Provided? No Information not available 2020 On What Date Was Tobacco Cessation Counseling Provided? 06/28/2024 Information not available 06/28/2024 Sex: Unknown Functional Status Question Answer Note LastModified by Organizat ion Details LastModified Time Do you use any illicit or recreational drugs? No Information not available 07/25/2020 Do you or have you ever used any other forms of tobacco or nicotine? No Information not available 2020 What is your level of alcohol consumption? None Former Information not available 12/16/2017 Do you or have you ever used smokeless tobacco? Never used smokeless tobacco Information not available 01/25/2020 Are you currently employed? No Information not available 01/25/2020 Are you able to care for yourself? Yes Information not available 01/25/2020 What is your occupation? Disablied Information not available 01/25/2020 Do you or have you ever used e-cigarettes or vape? Never used electronic cigarettes Information not available 01/25/2020 What is your exercise level? None Information not available 10/27/2022 Mental Status Question Answer Note LastModified by Organization D etails LastModified Time Do you feel stressed (tense, restless, nervous, or anxious, or unable to sleep at night)? [id number] [email or web address] Information not available 08/21/2021 Family History Relationship Description Onset Age of this Age Resolved Age Notes LastModified by Organization Details LastModified Time Father Harmful pattern of use of alcohol [email or web address] Not available 12/16 12:02:30 Father Family history of malignant neoplasm [email or web address] Not available 12/16 12:02:41 Mother Family history of malignant neoplasm [email or web address] Not available 12/16 12:02:41 Medical History Condition Response Coronary Artery Disease N Other Y High Blood Pressure N Atrial Fibrillation N Thyroid Problems N Kidney or Bladder Problems N Blood Clots N COPD N Depression Y GI Problems Y Skin Problems N Anemia N Heart Attack (AR) N Anxiety Disorder Y Diabetes Y Muscle, [...] mcg/0.3 mL dose 12/08/2020 completed Not Available [facility] 4 10:49:05 COVID-19, mRNA, LNP-S, PF, 30 mcg/0.3 mL dose 12/29/2020 completed Not Available [facility] 4 10:49:05 Hep A-Hep B 09/10/2015 completed Amanda Amin MA [facility], [place] - [facility] 07/20/2023 09:11:13 Past Encounters Encounter ID Performer Location Encounter Start Date Encounter Closed Date Diagnosis/Indication Diagnosis SNOMED-CT Code Diagnosis ICD10 Code Diagnosis Note [id number] Kris Mckeon MD [facility] [address] [place] [address] 12/16/2017 11:36:06 12/16/2017 12:52:59 Metabolic dysfunction-associate d steatohepatitis 974750989 K75.81 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 816904515 I85.10 Type 2 obdulio betes mellitus 33446892 E11.9 [id number] Kris Mckeon MD [facility] [address] [place] [address] 12/23/2017 11:30:06 12/23/2017 12:45:09 Diabetes mellitus 52676117 E11.69 Cholecystitis 30596596 K 80.01 End stage liver disease 708631327 K72.90 [id number] Janeth Pavon PA-C [facility] [facility] [address] [place] [address] 02/11/2018 15:41:09 02/11/2018 16:48:42 Generalized anxiety disorder 12307377 F41.1 Uncontroll ed type 2 diabetes mellitus 493328036 E11.65 [id number] Janeth Pavon PA-C [facility] [address] [place] [address] 03/02/2018 15:31:55 03/02/2018 16:08:34 End stage liver disease 925786501 K72.00 Uncontroll ed type 2 diabetes mellitus 826436472 E11.65 [id number] Janeth Pavon PA-C [facility] [address] [place] [address] 05/13/2018 15:37:41 05/13/2018 17:17:50 End stage liver disease 976842924 K72.00 [id number] Janeth Pavon PA-C [facility] [address] [place] [address] 05/25/2018 11:13:32 05/25/2018 11:43:34 End stage liver disease 223604533 K72.00 Dyspnea on exertion 6084 5006 R06.09 Tachycardia 0824051 R00. 0 On examina tion - deep seated pustules 652331924 L08.9 [id number] Janeth Pavon PA-C [facility] [address] [place] [address] 06/14/2018 10:19:40 06/14/2018 11:01:20 Diabetes mellitus 51112959 E11.69 End stage liver disease 695899894 K72.00 Lumbar radiculopathy 128 985649 M54.16 [id number] Janeth Pavon PA-C [facility] [address] [place] [address] 02/09/2019 14:30:46 02/09/2019 15:35:07 Diabetes mellitus 66887015 E11.69 Increased frequency of urination 251863842 R35.0 [id number] Janeth Pavon PA-C [facility] [address] [place] [address] 03/22/2019 15:44:00 03/22/2019 17:48:00 Anemia due to chronic blood loss 969457172 D50.0 Metabolic dysfunction-associate d steatohepatitis 618276286 K75.81 Type 2 obdulio betes mellitus without complication 537104335 E11.9 Low back pain 199533859 M54.5 Increased frequency of urination 463964645 R35.0 Hepatic encephalopathy 53519941 K72.90 [id number] TOM Kunz [address] [place] [address] 08/01/2019 11:23:53 08/01/2019 12:28:44 Cirrhosis of liver 64620212 K74.69 [id number] Janeth Pavon PA-C [facility] [address] [place] [address] 08/17/2019 09:24:17 08/24/2019 11:34:51 Diabetes mellitus 17584190 E11.69 Lumbar radiculopathy 128 449934 M54.16 [id number] Janeth Pavon PA-C [facility] [address] [place] [address] 08/31/2019 14:50:58 09/02/2019 14:48:06 Acute bronchitis with bronchospasm 68574791 J20.9 [id number] TOM Kunz [facility] [address] [place] [address] 12/19/2019 09:34:48 12/19/2019 15:21:39 [id number] Janeth Pavon PA-C [facility] [address] [place] [address] 12/23/2019 09:37:23 12/23/2019 15:52:54 Diabetes mellitus 45540797 E11.69 Obstructiv e sleep apnea syndrome 69562293 G47.33 End stage liver disease 905441339 K72.00 Thoracic back pain 70882 8004 M54.6 [id number] Janeth Pavon PA-C [facility] [address] [place] [address] 01/25/2020 09:34:10 01/25/2020 15:21:39 Lumbar radiculopathy 321653577 M54.16 [id number] Kris Mckeon MD [facility] [address] [place] [address] 02/23/2020 09:42:16 02/23/2020 16:52:05 Diabetes mellitus 17920319 E11.69 Renal mass 169059920 N28 .89 Neoplasm of kidney 26187 0001 D49.318 [id number] Janeth Pavon PA-C [facility] [address] [place] [address] 06/13/2020 11:39:18 06/14/2020 10:53:35 Metabolic dysfunction-associate d steatohepatitis 433880705 K75.81 Uncontroll ed type 2 diabetes mellitus 823783236 E11.65 [id number] Kris Mckeon MD [facility] [address] [place] [address] 07/25/2020 11:21:27 07/25/2020 14:13:47 Long-term drug therapy 190632369 Z79.899 Gastroesop hageal reflux disease without esophagitis 011134208 K21.9 Hematochezia 388156899 K 92.1 Nausea and vomiting 1693 2000 R11.2 Pityriasis rosea 2462363 4 L42 Type 2 obdulio betes mellitus 53776199 E11.9 [id number] Kris Mckeon MD [facility] [address] [place] [address] 07/27/2020 10:05:37 07/31/2020 10:18:42 Uncontrolled type 2 diabetes mellitus 866984095 E11.65 [id number] Kris Mckeon MD [facility] [address] [place] [address] 2020 11:20:02 09/08/2020 12:42:46 Tinea corporis 35800833 B35.4 Abscess 670045448 L02.91 [id number] Kris Mckeon MD [facility] [address] [place] [address] 11/16/2020 10:47:40 11/16/2020 11:46:55 Exanthem due to herpes zoster 348600730 B02.8 [id number] Kris Mckeon MD [facility] [address] [place] [address] 06/26/2021 15:54:46 06/26/2021 17:00:08 Long-term drug therapy 640489879 Z79.899 Low back pain 944957399 M54.51 Body mass index 30+ - obesity 862364645 Z68.39 Screening for malignant neoplasm of prostate 180534241 Z12.5 [id number] Kris Mckeon MD [facility] [address] [place] [address] 08/21/2021 11:08:46 08/21/2021 12:35:42 Adult health examination 002529227 Z00.00 Backache 678773822 M54.9 [id number] Janeth Pavon PA-C [facility] [address] [place] [address] 11/15/2021 15:33:53 11/18/2021 10:03:54 Hyperglycemia due to type 2 diabetes mellitus 3590488773 13402 E11.65 Type 2 obdulio betes mellitus 36283258 E11.9 Morbid obesity 589093880 E66.01 End stage liver disease 730286271 K72.00 [id number] Janeth Pavon PA-C [facility] [address] [place] [address] 05/28/2022 16:19:55 05/28/2022 17:17:07 Uncontrolled type 2 diabetes mellitus 172766625 E11.65 Chronic back pain 152501 002 M54.05 Overweight 394427448 E66 .3 Urinary incontinence 165 554536 R32 Generalize d anxiety disorder 28991075 F41.1 Backache 195416114 M54.9 [id number] Kris Mckeon MD [facility] [address] [place] [address] 10/27/2022 14:34:16 10/28/2022 10:40:36 Long-term drug therapy 632689404 Z79.899 Lumbar radiculopathy 128 278724 M54.16 Persistent cough 2435742 02 R05.3 Daytime somnolence 53738 90802 00 R40.0 Type 2 obdulio betes mellitus 33377761 E11.9 Iron defic iency anemia 50569370 D50.8 [id number] Kris Mckeon MD [facility] [address] [place] [address] 12/29/2022 15:17:34 12/30/2022 09:55:18 Lumbar radiculopathy 279940692 M54.16 Overweight 393840702 E66 .3 [id number] Janeth Pavon PA-C [facility] [address] [place] [address] 02/24/2023 18:01:59 03/02/2023 15:11:10 Persistent cough 830774352 R05.3 Essential hypertension 46905575 I10 Overweight 961081894 E66 .3 [id number] Janeth Pavon PA-C [facility] [address] [place] [address] 05/14/2023 11:38:36 05/15/2023 11:58:34 Type 2 diabetes mellitus 69999077 E11.9 Mixed anxi ety and depressive disorder 248533545 F41.8 Overweight 746661414 E66 .3 [id number] Janeth Pavon PA-C [facility] [address] [place] [address] 06/04/2023 10:52:25 06/09/2023 14:14:44 Abdominal pain 65364391 R10.13 Cirrhosis of liver 74071 007 K74.69 Overweight 505559538 E66 .3 [id number] Janeth Pavon PA-C [facility] [address] [place] [address] 07/02/2023 12:08:49 07/03/2023 11:31:17 Type 2 diabetes mellitus 39060186 E11.9 Atypical chest pain 1025 35426 R07.89 Overweight 020736151 E66 .3 [id number] Janeth Pavon PA-C [facility] [address] [place] [address] 08/05/2023 15:58:27 08/21/2023 14:53:44 Uncontrolled type 2 diabetes mellitus 276387224 E11.65 Overweight 674156440 E66 .3 [id number] Janeth Pavon PA-C [facility] [address] [place] [address] 08/13/2023 14:55:22 08/20/2023 15:19:06 Lumbar radiculopathy 008966178 M54.16 [id number] Kris Mckeon MD [facility] [address] [place] [address] 09/17/2023 08:59:31 09/18/2023 13:42:26 Atopic dermatitis 51916989 L20.9 -Patient presentati on consistent with atopic dermatitis .-Patient reports rash has improved with triamcinol one use. Patient to continue triamcinol one for another 7 days BID PRN.-SURVEILLANCE INSPECTOR ordering eucerin lotion for patient to use daily PRN.-SURVEILLANCE INSPECTOR provided atopic dermatitis care instructio ns. Type 2 obdulio betes mellitus 09121747 E11.21 -Uncontrol led.-Last A1c: 12 (05/14/23)- Continue current therapy-Jamie werner would like referral to another endocrinol ogist and nutritioni . SURVEILLANCE INSPECTOR to place orders.-SURVEILLANCE INSPECTOR discussed diet and lifestyle changes with the patient at length. SURVEILLANCE INSPECTOR provided numerous diabetes care instructio ns and discussed with the patient.-R ecommended diabetic diet-Educa manny to check feet daily [id number] Kris Mckeon MD [facility] [address] [place] [address] 10/16/2023 11:23:31 10/17/2023 06:49:47 Long-term drug therapy 867152269 Z79.899 Diabetes mellitus 059589 09 E11.69 Overweight 703642203 E66 .3 [id number] Janeth Pavon PA-C [facility] [address] [place] [address] 01/14/2024 09:33:39 01/19/2024 12:05:45 Long-term drug therapy 118596499 Z79.899 Type 2 obdulio betes mellitus 36825009 E11.9 Uncontroll ed type 2 diabetes mellitus 234874896 E11.65 ER now Overweight 566123185 E66 .3 [id number] Janeth Pavon PA-C [facility] [address] [place] [address] 01/26/2024 10:49:29 02/03/2024 14:35:51 Cirrhosis of liver 97826188 K74.69 Type 2 obdulio betes mellitus 12772063 E11.9 Adult [facility] th examination 042102276 Z00.00 Overweight 589864423 E66 .3 [id number] Kris Mckeon MD [facility] [address] [place] [address] 03/03/2024 10:44:06 03/04/2024 13:36:40 Chronic low back pain 629809157 M54.59 Morbid obesity 017066372 E66.01 [id number] Kris Mckeon MD [facility] [address] [place] [address] 03/08/2024 14:46:39 03/09/2024 16:00:13 Seizure 75131368 G40.89 Uncontroll ed type 2 diabetes mellitus 044643016 E11.65 Dissociati ve convulsions 659316753 F44.5 Overweight 594009234 E66 .3 [id number] Kris Mckeon MD [facility] [address] [place] [address] 03/23/2024 10:36:19 03/28/2024 10:16:17 Lumbar radiculopathy 543916289 M54.16 Uncontroll ed type 2 diabetes mellitus 806038627 E11.65 Overweight 132815320 E66 .3 [id number] Kris Mckeon MD [facility] [address] [place] [address] 04/06/2024 09:53:53 04/06/2024 16:23:24 Dysuria 81136176 R30.0 Uncontroll ed type 2 diabetes mellitus 439049822 E11.65 Generalize d anxiety disorder 89478117 F41.1 Overweight 990019243 E66 .3 [id number] Kris Mckeon MD [facility] [address] [place] [address] 06/28/2024 17:38:46 06/29/2024 10:11:55 Hemoptysis 21925842 R04.2 Functional gait abnormality 8479059701 9103 R26.0 Health Concerns Section Related Observation [...] 2020 (MEDICAID REPLACEMENT - HMO) Camilo Curry [id number] Camilo Curry 03/08/2024 1 [employer] [place] ON [place] AFTER 2020 (MEDICAID REPLACEMENT - HMO) Camilo Curry [id number] Camilo Curry 03/23/2024 1 [employer] [place] ([place] REPLACEMENT - HMO) Camilo Curry [id number] Camilo Curry 04/06/2024 1 [employer] [place] ([place] REPLACEMENT - HMO) Camilo Curry [id number] Camilo Curry 06/28/2024 1 [employer] [place] ([place] REPLACEMENT - HMO) Camilo Curry [id number] Camilo Curry Notes Date Note Type Note Provider Name and Address Organization Details Recorded Time 03/03/2024 text/html 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 [place] - [facility] 03/08/2024 15:28:41 03/23/2024 text/html injured his lowe r back moving furniture...needs MRI...xray and CT spine were negative...phys therapy was ineffective...was just in ER Janeth Pavon PA-C Attn: Accounting,[address] [facility] [facility], [place], [address], [facility] [place] [facility] [place] 03/23/2024 11:18:37 04/06/2024 text/html has burning urination for a week... every hour frequency...says he has been drinking nikhil justice vs nausea...also needs something for sedation for MRI Janeth Pavon PA-C Attn: Accounting,[address] [facility], [place], [address], [facility] [place] - [facility] 04/06/2024 10:29:01 06/28/2024 text/html was in CHF and pneumonia at [facility]..now is also vomiting brown like blood on occasion..hx of varices..also starting to lose balance again and also having pain around back to mid line..his balance feels like he leans over progressively as he walks and loses his balance... Janeth Pavon PA-C Attn: Accounting,[address] [facility], [place], [address], [facility], [place] [facility] 06/28/2024 18:35:45
--- OUTSIDE RECORDS SUMMARY | 2024-09-12 22:07 | XMS_ITS | Encounter Summary ---
Author Organization [facility] Address [address] [place] [address] Care Team Providers Care Wellness Educator Name Role Phone None, Provider Primary Care Provider Braydon Piedra Primary Care Provider [phone] Encounter Details Date Type Department Care Team (Late st Contact Info) Description 10/09/2018 Abstract SFL CONVERSION [address] [place] [address] , Generic Conversion, Social History Tobacco Use [...] on filedocumented in this encounter Care Teams Wellness Educator Relationship Specialty Start Date End Date None, ProviderMD PCP - General 02/08/19 03/01/19 Braydon Pavon PA PCP - General PHYSICIAN MELTER SUPERVISOR OXYGEN FURNACE 03/02/19 documented as of this encounter
--- OUTSIDE RECORDS SUMMARY | 2024-09-12 22:07 | XMS_ITS | Continuity of Care Document ---
Author Organization [facility] Address [address] [facility] [place] [address] Phone Care Team Providers Care Side Puller Name Role Phone Roosevelt Mcgee MD Unavailable Unavailable Allergies, Adverse Reactions, Alerts Substance Reaction Status Criticality CIPROFLOXACIN HCL Active No Informa tion ciprofloxacin Active No Information erythromycin base Active No Informa tion Sulfa (Sulfonamide Antibiotics) Active No Information PENICILLIN Active No Information Medications Medication Instructions Dosage Effective Dates (start - stop) Status Comments Stanton 10 mg-325 mg tablet take 1 tablet [...] Copied on Encounter OFFICE/OUTPA TIENT VISIT, EST [facility], [address], [place], [id number], [place] tel:[phone] [facility] anxiety1 (chief complaint) DM (chief complaint) liver cirrhosis (chief complaint) GERD1 (chief complaint) chronic pain (chief complaint) Type 2 diabetes mellitus without complicationsGenera lized Anxiety DisorderOther cirrhosis of liverChronic pain syndrome 2-[address] [place], [address] , . tel:[phone] Referring Provider: Roosevelt Mcgee [address], [place], [place], [address]. tel:[phone] Family History Family Member Type Diagnosis Age At Onset Mother Problem (finding) of ovarian CA Mother Problem (finding) Sister Problem (finding) Alive and well Father Problem (finding) Sister Problem (finding) Diabetes mellitus type 2 Father Problem (finding) esophageal CA Payers Payer name Insurance type Covered green party ID Authoriza tion(s) No Information Social [...] takes lantus, tradejnta, humalog. His BG is [id number]. Pt sees endo for his DM. Pt [...] Mental Status Date Cognitive Assessment Orientation - [place] ed to time, place, person, situation.
--- OUTSIDE RECORDS SUMMARY | 2024-09-12 22:07 | XMS_ITS | Clinical Summary ---
Author Organization [facility] Address [address] [place] [address] Phone Care Team Providers Care Highway Maintenance Technician Name Role Phone Librado Braydon NEAL Primary Care Provider [phone] Vikram Mora MD Unavailable Riddhi Bello APRN, WELL DRILL OPERATOR HELPER CABLE TOOL Unavailable Allergies Active Allergy Reactions Criticality Noted [...] as needed. 3 Active ergocalciferol (VITAMIN D) 55224 UNIT Capsule Take 50,000 Units by mouth. Active Insulin Pen Needle (B-D ULTRAFINE III SHORT PEN) 31G X 8 MM Misc 1 Active Insulin Pen Needle (B-D ULTRAFINE III SHORT PEN) 31G X 8 MM Misc 1 Each by Subcutaneous route. 1 Active Insulin Pen Needle (Pen [place]) 32G X 4 MM Misc Inject 3 [...] 10 Tablet 4 Active Continuous Blood Gluc Plating Stripper (Dexcom G7 Plating Stripper) Device Check blood glucose before each meal and at bedtime 1 Each 4 Active HYDROcodone-bella taminophen ([place]) 10-325 MG Tablet Take 1 Tablet by [...] Encounters Date Type Department Care Team Description 08/24/2024 [facility]phone [facility] [address] [place] [address] Riddhi Bello APRN, CNP 06/30/2024 Nurse [facility]riage [facility] [address] [place] [address] Riddhi Bello APRN, DOROTHY Blood in Vomit from Last 3 Months [...] on file Legal Sex Male 10:[address] REGISTRY OFFICER Gender Identity Not on file Sexual [...] Visit [facility] [address] [place] [address] Andrea Hawkins MD [address] [place] [address] Health Maintenance Due Date Last Done Comments Diabetes: Eye Exam 1970 Hepatitis C Virus (HCV) Screening 1970 TdaP Immunization 1970 Pneumococcal Immunization (50+ years) (1 of 2 - PCV) 1989 Hepatitis B Immunization (3 of 3 - 19+ 3-dose series) 03/12/2016 11/09/2015, 09/10/2015 Cologuard 2020 Immunochemical Fecal Occult Blood 2020 Zoster Immunization (1 of 2) 2020 SARS-COV-2 Immunization (3 - season) 2024 12/29/2020, 12/08/2020 Diabetes: Foot Exam 06/01/2024 06/01/2023 Diabetes: Nephropathy Screening 11/12/2024 11/13/2023, 05/29/2023, 05/20/2023, Additional history exists Diabetes: Hemoglobin A1c 12/07/2024 02 025, 05/31/2024, 11/23/2023, Additional history exists Influenza Immunization (Season Ended) 2025 Colonoscopy 03/24/2028 03/24/2023, 12/02, 05/03/2005 Colorectal Cancer [...] W/ ESTIMATED GLUCOSE STAT 05/20/2023 10:[address] REGISTRY OFFICER from Last 3 Months or Most Recently Relevant to Health Maintenance Results * (ABNORMAL) CMP (Comprehensive Metabolic Panel) (11/13/2023 6:40 PM CDT) SODIUM 139 136 - 145 mmol/L 11/13/2023 7:25 PM CDT [facility] POTASSIUM 3.7 3.5 - 5.1 mmol/L 11/13/2023 7:25 PM CDT [facility] CHLORIDE 105 98 - 107 mmol/L 11/13/2023 7:25 PM CDT [facility] CO2, VENOUS 24 22 - 30 mmol/L 11/13/2023 7:25 PM CDT [facility] ANION GAP 13.7 <18.0 mmol/L 11/13/2023 7:25 PM CDT [facility] GLUCOSE 188(H) 70 - 99 mg/dL 11/13/2023 7:25 PM CDT [facility] BUN 11 8 - 26 mg/dL 11/13/2023 7:25 PM CDT [facility] CREATININE, BLOOD 0.84 0.70 - 1.30 mg/dL 11/13/2023 7:25 PM CDT [facility] BUN/CREATININE RATIO 13 12 - 20 ratio 11/13/2023 7:25 PM CDT [facility] TOTAL PROTEIN 7.3 6.3 - 8.2 g/dL 11/13/2023 7:25 PM CDT [facility] ALBUMIN 3.9 3.5 - 5.0 g/dL 11/13/2023 7:25 PM CDT [facility] A/G RATIO 1.1 1.0 - 2.2 11/13/2023 7:25 PM CDT [facility] CALCIUM 9.4 8.7 - 10.5 mg/dL 11/13/2023 7:25 PM CDT [facility] T BILI 3.6(H) 0.2 - 1.2 mg/dL 11/13/2023 7:25 PM CDT [facility] SGOT (AST) 27 5 - 34 U/L 11/13/2023 7:25 PM T [facility] SGPT (ALT) 17 0 - 55 U/L 11/13/2023 7:25 PM CDT [facility] ALKALINE PHOSPHATASE 90 40 - 150 U/L 11/13/2023 7:25 PM T [facility] GFR, ESTIMATED >60 >=60 11/13/2023 7:25 PM T [facility] Comment: Creatinine Clearance is the preferred criteria for selecting drug dose adjustments in renally impaired patients. The GFR is provided as additional pertinent clinical information. GFR is reported in mL/min/1.73 sq m. Calculation based on the Chronic Kidney Disease Epidemiology Collaboration (CKD- EPI) equation refit without adjustment for race. GFR, EST. >60 >=60 024 7:25 PM CDT [facility] GFR, EST. NONAFRICAN >60 >=60 11/13/2023 7:25 PM T [facility] Blood Venipuncture / Unknown 11/13/2023 6:40 PM CDT 11/13/2023 7:00 PM CDT us Lul Junior DO CHEMISTRY ORDERABLES Fi nal Result Performing Organization Address City/[facility]/ZIP Co de Phone Number [facility] [address] [place] [address] * (ABNORMAL) Hemoglobin A1C (05/20/2023 10:[address] REGISTRY OFFICER) HGB-A1C 11.6(H) 4.0 - 6.0 % 05/20/2023 12:[address] REGISTRY OFFICER [facility] Est Average Glucose 286.2 mg/dL 05/20/2023 12:[address] REGISTRY OFFICER [facility] Blood Venipuncture / Unknown 05/20/2023 10:[address] REGISTRY OFFICER 05/20/2023 11:[address] REGISTRY OFFICER Narrative [facility] - 05/20/2023 12:[address] REGISTRY OFFICER HEMOGLOBIN A1C: DIABETIC PATIENTS: WELL-CONTROLLED: 6.2 - 7.0 INTERMEDIATE WELL-CONTROLLED: 7.0 - 9.0 POORLY-CONTROLLED: >9.0 us Felicitas Luz APRN, WELL DRILL OPERATOR HELPER CABLE TOOL CHEMISTRY ORDERABLES Final Result Performing Organization Address City/[facility] Co de Phone Number [facility] [address] [place] [address] from Last 3 Months or Most Recently Relevant to Health Maintenance Insurance MEDICAID AETNA [facility] PA TPL Care Teams Highway Maintenance Technician Relationship Specialty Start Date End Date Braydon Pavon, PAC [address] [place] [address] PCP - General Physician Personal Banking Representative 06/22/18 Vikram Mora MD [address] [address] Consulting Physician Endocrinology 05/21/23 Riddhi Bello APRN, WELL DRILL OPERATOR HELPER CABLE TOOL [address] [place] [address] Nurse Practitioner Advanced Practice Nurse 02/10/23
--- OUTSIDE RECORDS SUMMARY | 2024-09-12 22:07 | XMS_ITS | Referral Summary ---
Author Organization [facility] Address [address] [place] [address] Care Team Providers Care Terrazzo Worker Apprentice Name Role Phone Nacho Rodriguez MD Unavailable [phone] Elian Gross MD Unavailable Braydon Pavon Primary Care Provider [phone] Encounters Date Type Department Care Team Description 07/06/2024 Documentation [facility] Gastroenterology [address] [place] [address] [place] [address] Sean Rodas RN 07/05/2024 Results Follow-Up [facility] Gastroenterology [address] 12[address] [place] [address] [place] [address] Nilton Whatley MD 07/05/2024 9:40 AM AUDIO EXPERIENCE EXPERT - 07/05/2024 11:59 PM AUDIO EXPERIENCE EXPERT Hospital Encounter [facility] [address] [place] [address] Hepatic cirrhosis, unspecified hepatic cirrhosis type, unspecified whether ascites present (HCC) Discharge Disposition: Discharge to home or self care from Last 3 Months Allergies Active Allergy [...] 1 each 05/21/19 22 Active Dexcom G6 Log Tumbler misc 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 Use to [...] 05/20/2021 Assessment & Plan (05/22/2021 3:58 PM AUDIO EXPERIENCE EXPERT): A initial well visit to establish care [...] unless otherwise indicated. Need follow-up arranged with inside finisher, senior sales administrator Planning on referral to painter ski edge Will need to check in to the tips follow-up Labs as ordered today, I will direct the Jeremi c to his senior sales administrator's office. Continuing the current regimen for now. Blood pressure is controlled at this time. We may need to try to get the stress test done as well. Screen for colon cancer 03/01/2021 Overview (03/01/2021): Added automatically from request for surgery [id number] Diabetic neuropathy associat ed with type 2 diabetes mellitus 10/29/2020 Assessment & Plan (10/29/2020 4:23 PM CDT): Chronic, worsening Start, gabapentin therapy Work on better diabetic control Vitamin D deficiency 10/29/2020 Assessment & Plan (10/29/2020 4:23 PM CDT): Check labs and based on that for the plans Bacterial endocarditis 05/14/2020 Assessment & Plan (05/14/2020 11:09 AM AUDIO EXPERIENCE EXPERT): Unfortunately the patient's records from [facility] are not available for my review. We [...] 05/14/2020 Assessment & Plan (05/14/2020 11:11 AM AUDIO EXPERIENCE EXPERT): The patient's dyspnea on exertion is likely [...] - follow up in 6 weeks with SURETY BOND AGENT Chelsea Driscoll ( to discuss about insulin [...] home regimen and follow-up with home senior sales administrator MATHEUS pain 10/11/2017 Morbid obesity 12/09/2016 TRACY [...] on file Legal Sex Male 2:52 PM AUDIO EXPERIENCE EXPERT Gender Identity Male 10/29/2020 12:37 PM CDT Sexual Orientation Straight 10/29/2020 12 :37 PM CDT Last Filed Vital Signs Vital Sign Reading Time Taken Comments Blood Pressure 117/76 06/02/2024 7:36 AM AUDIO EXPERIENCE EXPERT Pulse 88 06/02/2024 7:36 AM AUDIO EXPERIENCE EXPERT Temperature 36.7 C (98.1 F) 06/02/2024 7:36 AM AUDIO EXPERIENCE EXPERT Respiratory Rate 17 01/20/2024 12:0 0 PM CDT Oxygen Saturation 92% 06/02/2024 7:36 AM AUDIO EXPERIENCE EXPERT Inhaled Oxygen Concentration - - Weight 103.1 kg (227 lb 6.4 oz) 06/02/2024 7:36 AM AUDIO EXPERIENCE EXPERT Height 172.7 cm (5' 8 ) 11/23/2023 7:53 AM CDT Body Mass Index 34.58 11/23/2023 7:53 AM CDT Plan of Treatment Not on file Medical Devices Implanted Type Area Production Leader Device Identifier Shelf Expiration Date Model / Serial / Lot [employer] [id number] Lifestar 14mm 60mm 80cm Stent Biliary - [id number] Implanted:Qty: 1 on 01/10/2021 at [facility] [employer] 09/15/2023 [id number] / / [id number] Procedures Procedure Name Priority Date/Time Associated Diagnosis Comments US LIVER W COMPLETE DOPPLER Schedule Routine, Read Routine (OP Routine) 07/05/2024 11:25 AM AUDIO EXPERIENCE EXPERT Hepatic cirrhosis, unspecified hepatic cirrhosis type, unspecified whether ascites present (HCC) EGFR Routine 06/02/2024 8:48 AM AUDIO EXPERIENCE EXPERT Hepatic cirrhosis, unspecified hepatic cirrhosis type, unspecified whether ascites present (HCC) HEMOGLOBIN A1C STAT 11/23/2023 8:40 AM CDT LIPID PANEL Routine 05/20/2021 9:36 AM AUDIO EXPERIENCE EXPERT Morbid obesity with body mass index (BMI) of 40.0 to 44.9 in adult (HCC) ALBUMIN CREATININE RATIO, URINE Routine 05/20/2021 9:36 AM AUDIO EXPERIENCE EXPERT Diabetic neuropathy associated with type 2 diabetes mellitus (HCC) COLONOSCOPY 12/17/2020 10:24 AM CDT SERUM HEPATITIS PANEL Routine 08/23/2015 5:23 PM CDT from Last 3 Months or Most Recently Relevant to Health Maintenance Results * US Liver W Complete Doppler (C) (07/05/2024 11:25 AM AUDIO EXPERIENCE EXPERT) Anatomical Region Laterality Modality Abdomen N/A Ultrasound 07/05/2024 11:3 7 AM AUDIO EXPERIENCE EXPERT Impressions 07/05/2024 11:57 AM AUDIO EXPERIENCE EXPERT 1. Sonographic features of cirrhosis. 2. US [...] Maurice Paul M.D. Narrative 07/05/2024 11:57 AM AUDIO EXPERIENCE EXPERT EXAMINATION: 1. LIVER SONOGRAM 2. LIVER DOPPLER [...] depending on risk factors. Dictated by: Chito H Hieu, M.D. The radiology attending physician has personally reviewed this study, and had reviewed and/or edited this written report and agrees with it. Electronically signed by: Maurice Paul M.D. Nilton Whatley MD IMG US PROCEDURES Final Re sult * eGFR (06/02/2024 8:48 AM AUDIO EXPERIENCE EXPERT) eGFR >90 >=60 mL/min/1. 73 m2 Comment: [...] last reviewed 2021. Blood 06/02/2024 8:48 AM AUDIO EXPERIENCE EXPERT 06/02/2024 9:05 AM AUDIO EXPERIENCE EXPERT Nilton Whatley MD LAB BLOOD ORDERABLES Final Result [facility] [place] [address] * (ABNORMAL) Hemoglobin A1c (11/23/2023 8:40 AM CDT) Hgb A1C 10.0(H) 4.0 - 5.6 % Estimated Average Glucose 240 mg/dL [facility] Comment: The ADA recommends reporting an [...] ORDERABLES Fi nal Result Performing Organization Address [facility] Co de Phone Number [facility] [place] [address] * Albumin Creatinine Ratio, Urine (05/20/2021 9:36 AM AUDIO EXPERIENCE EXPERT) Albumin Ur <12.0 mg/L MOHINDER Comment: Interpretive Data No reference range established. Current interpretive data was last revised 2018. Creatinine Ur 47.6 mg/dL MOHINDER Comment: Interpretive Data No reference range established. Current interpretive data was last revised 2018. Albumin Creatinine Ratio, Ur <25 1 - 29 mg/g MOHINDER Urine 05/20/2021 9:36 AM AUDIO EXPERIENCE EXPERT 05/20/2021 7:41 PM AUDIO EXPERIENCE EXPERT Simon Lundberg MD LAB URINE ORDERABLES Final Result Performing Organization Address [facility] de Phone Number [facility] [address] [place] [address] * (ABNORMAL) Lipid panel (05/20/2021 9:36 AM AUDIO EXPERIENCE EXPERT) Cholesterol 110 30 - 199 mg/dL MOHINDER [...] ratio 3 MOHINDER Blood 05/20/2021 9:36 AM AUDIO EXPERIENCE EXPERT 05/20/2021 7:41 PM AUDIO EXPERIENCE EXPERT us Simon Lundberg MD LAB BLOOD ORDERABLES Final Result MOHINDER [address] [facility] [place] [address] * COLONOSCOPY (12/17/2020 10:24 AM CDT) Anatomical Region Laterality Modality Other Narrative Procedure Note Elian Gross MD - 12/17/2020 10:24 AM CDT ENDOSCOPY LAB Patient Name: Camilo Curry Procedure Date: 12/17/2020 10:24 AM Date of : 1970 Admit Type: Outpatient Age: 50 Gender: Male Attending MD: Elian Vivar M.D. Room: [facility] ENDOSCOPY ROOM 02 Note Status: Finalized [...] the physician, the nurse, the anesthesiologist, the centerless grinder and thetechnician in the pre-procedure area in [...] The scope was passed under direct vision.The [id number] was introduced through the anusand advanced to the hepatic flexure. The colonoscopywas performed without difficulty. The patient tolerated the procedure well. The quality of the bowel preparation was unsatisfactory. The quality of the bowel preparation was evaluated using the BBPS([place] Bowel Preparation Scale) with scores of: RightColon [...] 10:24 AM us Elian Draper MD ENDOSCOPY [place] OCEDURES Final Result * Serum Hepatitis panel (08/23/2015 5:23 PM CDT) HBV surface ag Negative NEG HISTO RICAL RESULTS HCV ab Negative NEG HISTORICAL RESULTS Comment: Interpretive Data If confirmation is required, call Laboratory Customer Service to request sample to be sent to [facility] for Hepatitis C Virus (HCV) RNA Detection and Quantitation by Real-Time Reverse Chainstitch Pants Outseamer-PCR (RT-PCR). Current interpretive data was last revised [...] Most Recently Relevant to Health Maintenance Insurance [facility] [employer] [facility] Advance Directives For more information, please contact: [phone] * Full Code (Latest Code Status on [...] 11:57 AM 02/03/2018 5:26 AM Care Teams Terrazzo Worker Apprentice Relationship Specialty Start Date End Date Braydon Pavon PA [address] [place] [address] PCP - General 08/23/21 [place] [address] [address] [place] [address] Consulting Physician Endocrinology 05/20/21 [place] [address] [address] [facility] [address] [place] [address] Consulting Physician Internal Medicine 05/20/21
--- OUTSIDE RECORDS SUMMARY | 2024-09-12 22:07 | XMS_ITS | Clinical Summary ---
Author Organization [facility] Address [address] [place] [address] Care Team Providers Care Commissions Coordinator Name Role Phone Braydon Pavon Primary Care Provider [phone] Allergies Active Allergy Reactions Criticality Noted Date [...] (two) times daily. Active vitamin D2, ergocalciferol, 69138 UNITS capsule Take 1 capsule (50,000 Units total) by mouth every 30 (thirty) days. Active Insulin Pen Needle (PEN NEEDLES) 32G X 4 MM Misc Inject 3 times daily Active ONE TOUCH ULTRA TEST STRIPS test stripIndications: Type 2 diabetes mellitus with hyperglycemia, with long-term current use of insulin ([facility]) Test 4 times daily 200 strip 11 Active B-D ULTRAFINE III SHORT PEN 31G X 8 MM Misc Active albuterol sulfate HFA 108 (90 Base) MCG/ACT inhaler Inhale 2 puffs into the lungs. Active ALPRAZolam (XANAX) 1 MG tablet Take 1 tablet (1 mg total) by mouth 3 (three) times daily. Active TRULICITY 0.75 MG/0.5ML injection Inject 0.75 mg into the skin once a week. Active famotidine (PEPCID) 20 MG tablet Active HYDROcodone-aceta minophen (NORCO) 10-325 MG tablet Act chetna naloxone (NARCAN) 4 MG/0.1ML nasal spray Active ondansetron (ZOFRAN-ODT) 4 MG disintegrating tablet Take 1 tablet (4 mg total) by mouth. Active pregabalin (LYRICA) 200 MG capsule Take 1 capsule (200 mg total) by mouth daily. Active insulin regular, CONCENTRATED, (HUMULIN R U-500 KWIKPEN) 500 UNIT/ML injectionIndicati ons:Type 2 diabetes mellitus with hyperglycemia, with long-term current use of insulin ([facility]) Inject 0.4 mLs (200 Units total) into the skin 3 (three) times daily before meals. 18 mL 11 Active Additional Information Patient taking differently:200 Units Subcutaneous 3 times daily before meals,Pt taking 200 units three times, Reported on 05/31/2024 Continuous Glucose Sensor (YakimbiCOM G7 SENSOR) MiscIndications:T ype 2 diabetes mellitus with hyperglycemia, with long-term current use of insulin ([facility]) CHANGE SENSOR EVERY 10 DAYS 3 each 11 Active tirzepatide (MOUNJARO) 2.5 MG/0.5ML injectionIndicati ons:Diabetes Mellitus Inject 2.5 mg into the skin every 7 days. Indications: Diabetes 2 mL 025 Active tirzepatide (MOUNJARO) 5 MG/0.5ML injectionIndicati ons:Diabetes Mellitus Inject 5 mg into the skin every 7 days. Indications: Diabetes 2 mL 5 025 Active metFORMIN ER (GLUCOPHAGE-XR) 500 MG 24 hr tabletIndications :Type 2 diabetes mellitus with hyperglycemia, with long-term current use of insulin ([facility]) TAKE 1 TABLET (500 MG TOTAL) BY MOUTH DAILY WITH SUPPER. 90 tablet 1 025 Active metFORMIN ER (GLUCOPHAGE-XR) 500 MG 24 hr tabletIndications :Type 2 diabetes mellitus with hyperglycemia, with long-term current use of insulin ([facility]) Take 1 tablet (500 mg total) by mouth daily with supper. 90 tablet 1 025 2024 Discontinued Active Problems Problem Noted Date Diagnosed Date Diabetic neuropathy associat ed with type 2 diabetes mellitus ([facility]) 10/29/2020 Lumbar degenerative disc disease 05/23/2019 Essential hypertension 07/21/2018 TRACY (obstructive sleep apnea) 09/14/2016 Thrombocytopenia 09/14/2016 Esophageal varices ([facility]) 09/09/2016 Hepatic encephalopathy ([facility]) 017 Type 2 diabetes mellitus wit h hyperglycemia, with long-term current use of insulin ([facility]) 09/09/2016 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 s/p TIPS in 2015. -RUQ today showing TIPS with slower velocity compared to 08/2017 but still patent, rec close FU. -rifaximin -holding lactulose for diarrhea -should have BB outpt Resolved Problems Problem Noted Date Diagnosed Date Resolved Date Bacterial endocarditis ([facility]) 05/14/2020 06/05/2024 BLAND (nonalcoholic steatohepatitis) 07/21/2018 04/05/2019 Diabetes mellitus, type 2 ([facility]) 02/02/2018 06/05/2024 Morbid obesity 12/09/2016 06/05/2024 History of upper gastrointestinal hemorrhage 6 04/05/2019 Encounters Date Type Department Care Team Description 08/30/2024 Telephone [facility] Diabetes [facility] Endocrinology - [place] [address] [place] [address] Eva Power MD Called To Cancel Office Appt. (Today's appt ) from Last 3 Months Family History Medical [...] Comments Blood Pressure 134/77 05/31/2024 8:59 AM VACUUM TRUCK DRIVER Pulse 84 05/31/2024 8:47 AM VACUUM TRUCK DRIVER Temperature 36.8 C (98.3 F) 02/15/2024 1:54 PM CDT Respiratory Rate 11 01/23/2024 12:30 AM CDT Oxygen Saturation 96% 05/31/2024 8:47 AM VACUUM TRUCK DRIVER Inhaled Oxygen Concentration - - Weight 100.2 kg (221 lb) 02/15/2024 1:54 PM CDT Height 172.7 cm (5' 8 ) 05/31/2024 8:47 AM VACUUM TRUCK DRIVER Body Mass Index 33.6 02/15/2024 1:54 PM CDT Plan of Treatment Health Maintenance Due Date Last Done Comments Colorectal Cancer Screening Colonoscopy (10 Years) 1970 Lipid Panel 1970 Annual Physical 1973 Diabetes: Retinopathy Eye Exam 1988 DTaP, Tdap and Td Vaccines (1 - Tdap) 1989 Pneumococcal Vaccine: 50+ Years (1 of 2 - PCV) 1989 Hepatitis B Vaccines (3 of 3 - 19+ 3-dose series) 03/12/2016 11/09/2015, 09/10/2015 Zoster Vaccines (1 of 2) 2020 COVID-19 Vaccine (3 - season) 2024 12/29/2020, 12/08/2020 PHQ-2 (Physician [place]) 05/04/2024 02/15/2024 Hemoglobin A1C 08/29/2024 05/31/2024, 11/02, [...] this topic Medical Devices Implanted Type Area Establishment Guide Device Identifier Shelf Expiration Date Model / Serial / Lot Lifestar Stent-01/02/2021 Implanted: 021 (Quantity not on file) Stent Abdomen [employer] - [employer] BARD [id number] / / Description:Non-clinical silvia ting demonstrated that [...] field of 720 Gauss/cm or less Maximum awjlk-wqdx-[id number] specific absorption rate (IVANA) of 2-W/kg for 15 minutes of scanning for patient landmarks above the umbilicus. Maximum WB-IVANA of 1 W/kg for 15 min. of scanning for patient landmarks below the umbilicus. Procedures Procedure Name Priority Date/Time Associated Diagnosis Comments HEMOGLOBIN, GLYCOSYLATED Routine 05/31/2024 Type 2 diabetes mellitus with hyperglycemia, with long-term current use of insulin ([facility]) from Last 3 Months or Most Recently Relevant to Health Maintenance Results * HEMOGLOBIN, GLYCOSYLATED (05/31/2024) HGB A1C 10.3 % [address] [facility] 05/31/2024 us Eva Power MD LABORATORY Final Result [address] [place] [address], from Last 3 Months or Most Recently Relevant to Health Maintenance Insurance [employer] Care Teams Commissions Coordinator Relationship Specialty Start Date End Date Braydon Pavon PA PCP - General PHYSICIAN METAL BONDING PRESS OPERATOR 03/02/19
--- OUTSIDE RECORDS SUMMARY | 2024-09-12 22:07 | XMS_ITS | Encounter Summary ---
Author Organization [facility] Address [facility] [facility] [place] [address] Care Team Providers Care Quality Lead Name Role Phone Braydon Pavon Primary Care Provider [phone] Nikolay Lancaster MD Primary Care Provider [phone] Braydon Pavon Primary Care Provider [phone] Reason for Visit * Reason Onset Date Comments MEDICATION REFILL 09/08/2018 Encounter Details Date Type Department Care Team (Late st Contact Info) Description 09/08/2018 Refill [facility] [address] [place] [address] Edmond Choi MD [address] [facility] [address] [facility] [place] [address] MEDICATION REFILL Social History Tobacco Use Types Packs/Day Years Used Date Smoking Tobacco: Former Smokeless Tobacco: Never Alcohol Use Standard Drinks/Week Comments No 0 (1 standard drink = 0.6 oz pur e alcohol) Sex and Gender Information Value Date Recorded Sex Assigned at Not on file Legal Sex Male 8:18 AM PAINTER HAND Gender Identity Not on file Sexual Orientation Not on file documented as of this encounter Plan of Treatment Not on file documented as of this encounter Visit Diagnoses Not on filedocumented in this encounter Additional Health Concerns Infection Onset Date Last Indicated Resolved Time COVID-19 Under Investigation 06/08/2024 06/08/2024 06/08/2024 4:31 PM PAINTER HAND Influenza A or B Comment:OSH result 06/08/2024 06/09/2024 06/15/2024 4:[address] documented as of this encounter Care Teams Quality Lead Relationship Specialty Start Date End Date Braydon Pavon PA [address] [place] [address] PCP - General Physician [employer] Judicial Law Clerk 05/19/18 10/03/18 Nikolay Lancaster MD [address] [place] [address] PCP - General 10/04/18 07/13/23 Braydon Pavon PA [address] [place] [address] PCP - General Physician [employer] Law Clerk 07/14/23 documented as of this encounter
--- OUTSIDE RECORDS SUMMARY | 2024-09-12 22:07 | XMS_ITS | Clinical Summary ---
Author Organization [facility] Address [address] Valenzuelan: Epic Prelude ADT [place] [address] Care Team Providers Care Video Recorder Mechanic Name Role Phone Carlos Mcdonnell DO Primary Care Provider Unava ilable Allergies No known active allergies Medications No known medications Encounters Date Type Department Care Team Description 06/30/2024 8:59 PM CONSULTING IT ARCHITECT - 06/30/2024 11:11 PM CONSULTING IT ARCHITECT Emergency [facility] Emergency Department [address] [place] [address] Gerry Caal DO Encounter for [...] on file Legal Sex Male 6:23 AM CONSULTING IT ARCHITECT Gender Identity Not on file Sexual Orientation Not on file Last Filed Vital Signs Vital Sign Reading Time Taken Comments Blood Pressure 147/78 06/30/2024 10:10 PM CONSULTING IT ARCHITECT Pulse 89 06/30/2024 10:55 PM CONSULTING IT ARCHITECT Temperature 36.4 C (97.5 F) 06/30/2024 5:45 PM CONSULTING IT ARCHITECT Respiratory Rate 13 06/30/2024 10:55 PM CONSULTING IT ARCHITECT Oxygen Saturation 96% 06/30/2024 10:55 PM CONSULTING IT ARCHITECT Inhaled Oxygen Concentration - - Weight - [...] Diagnosis Comments LIPASE Stat 06/30/2024 9:40 PM CONSULTING IT ARCHITECT COMPREHENSIVE METABOLIC PANEL Stat 06/30/2024 9:40 PM CONSULTING IT ARCHITECT VERIFICATION BLOOD GROUP Stat 06/30/2024 9:39 PM CONSULTING IT ARCHITECT Encounter for blood typing PROTIME-INR Stat 06/30/2024 9:39 PM CONSULTING IT ARCHITECT EXTRA TUBE (BLUE) Stat 06/30/2024 9:3 9 PM CONSULTING IT ARCHITECT EXTRA TUBE Stat 06/30/2024 9:39 PM CONSULTING IT ARCHITECT TYPE AND SCREEN Stat 06/30/2024 6:10 PM CONSULTING IT ARCHITECT CBC WITH DIFFERENTIAL Stat 06/30/2024 6:10 PM CONSULTING IT ARCHITECT from Last 3 Months Results * LIPASE (06/30/2024 9:40 PM CONSULTING IT ARCHITECT) Pathologist [facility] [place] LIPASE 17 13 - 60 U/L 06/30/2024 10:40 PM CONSULTING IT ARCHITECT [facility] Blood Venipuncture / Unknown 06/30/2024 9:40 PM CONSULTING IT ARCHITECT 06/30/2024 10:08 PM CONSULTING IT ARCHITECT Gerry Caal DO CHEMISTRY ORDERABLES Final Resu lt [facility] CLIA# [id number] [place] [address] * (ABNORMAL) COMPREHENSIVE METABOLIC PANEL (06/30/2024 9:40 PM CONSULTING IT ARCHITECT) Pathologist [facility] [place] SODIUM 137 136 - 145 mmol/L 06/30/2024 10:47 PM [facility] POTASSIUM 4.0 3.4 - 5.1 mmol/L 06/30/2024 10:47 PM [facility] CHLORIDE 98 98 - 107 mmol/L 06/30/2024 10:47 PM [facility] CO2 25 22 - 29 mmol/L 06/30/2024 10:47 PM [facility] CALCIUM 9.8 8.6 - 10.4 mg/dL 06/30/2024 10:47 PM [facility] BUN 17 6 - 20 mg/dL 06/30/2024 10:47 PM [facility] CREATININE 0.78 0.67 - 1.17 mg/dL 06/30/2024 10:47 PM [facility] GLUCOSE 450(HH) 74 - 99 mg/dL 06/30/2024 10:47 PM [facility] TOTAL PROTEIN 7.0 6.3 - 8.7 g/dL 06/30/2024 10:47 PM [facility] ALBUMIN 3.8 3.5 - 5.2 g/dL 06/30/2024 10:47 PM [facility] BILIRUBIN TOTAL 4.0(H) 0.3 - 1.2 mg/dL 06/30/2024 10:47 PM [facility] ALKALINE PHOSPHATASE 94 40 - 150 U/L 06/30/2024 10:47 PM [facility] AST 24 0 - 41 U/L 06/30/2024 10:47 PM [facility] ALT 13 0 - 41 U/L 06/30/2024 10:47 PM [facility] GFR >60 >=60 mL/min/1.7 3 sq meter 06/30/2024 10:47 PM [facility] Comment:eGFR calculated with 2020 CKD-EPI equation. Vegetarian diet, extremely high or low muscle mass, and may affect results. Cystatin C with Glomerular Filtration Rate is a suitable alternative for these patients. ANION GAP 14 8 - 16 mmol/L 06/30/2024 10:47 PM [facility] Blood Venipuncture / Unknown 06/30/2024 9:40 PM CONSULTING IT ARCHITECT 06/30/2024 10:08 PM CONSULTING IT ARCHITECT Gerry Caal DO CHEMISTRY ORDERABLES Final Resu lt Performing Organization Address [facility]/ZIP Co de Phone Number [facility] CLIA# [id number] [place] [address] * EXTRA TUBE (BLUE) (06/30/2024 9:39 PM CONSULTING IT ARCHITECT) Blood Venipuncture / Unknown 06/30/2024 9:39 PM CONSULTING IT ARCHITECT 06/30/2024 10:57 PM CONSULTING IT ARCHITECT Gerry Caal DO HEMATOLOGY ORDERABLES Final Res ult [facility] CLIA# [id number] [place] [address] * VERIFICATION BLOOD GROUP (06/30/2024 9:39 PM CONSULTING IT ARCHITECT) ABO GROUP A 06/30/2024 11:11 PM CONSULTING IT ARCHITECT [facility] RH (D) TYPE Positive 06/30/2024 11:11 PM CONSULTING IT ARCHITECT [facility] Blood Venipuncture / Unknown 06/30/2024 9:39 PM CONSULTING IT ARCHITECT 06/30/2024 10:07 PM CONSULTING IT ARCHITECT Carlos Mcdonnell DO BLOOD BANK ORDERABLES [id number] [address] [place] [address] * (ABNORMAL) PROTIME-INR (06/30/2024 9:39 PM CONSULTING IT ARCHITECT) Pathologist [facility] [place] PROTIME 15.0(H) 11.5 - 14.7 Seconds 06/30/2024 11:05 PM CONSULTING IT ARCHITECT [facility] INR 1.2(H) 0.9 - 1.1 06/30/2024 11:05 PM CONSULTING IT ARCHITECT [facility] Blood Venipuncture / Unknown 06/30/2024 9:39 PM CONSULTING IT ARCHITECT 06/30/2024 10:57 PM CONSULTING IT ARCHITECT Gerry Caal DO HEMATOLOGY ORDERABLES Final Res ult [facility] CLIA# [id number] [address] [place] [address] * (ABNORMAL) CBC WITH DIFFERENTIAL (06/30/2024 6:10 PM CONSULTING IT ARCHITECT) WBC 5.3 4.0 - 9.8 K/uL 06/30/2024 6:48 PM CONSULTING IT ARCHITECT [facility] [employer] [facility] RBC 5.86(H) 4.50 - 5.40 M/uL 06/30/2024 6:48 PM [facility] HEMOGLOBIN 16.8(H) 13.6 - 16.5 g/dL 06/30/2024 6:48 PM [facility] HEMATOCRIT 48.6(H) 40.0 - 48.0 % 06/30/2024 6:48 PM [facility] MCV 82.9 82.0 - 99.0 fL 06/30/2024 6:48 PM [facility] MCH 28.7 27.2 - 32.6 pg 06/30/2024 6:48 PM [facility] MCHC 34.6 31.5 - 35.5 g/dL 06/30/2024 6:48 PM [facility] RDW 16.9(H) 11.5 - 14.5 % 06/30/2024 6:48 PM [facility] RDW-STDEV 46.3 37.1 - 48.7 fL 06/30/2024 6:48 PM [facility] PLATELETS 78(L) 140 - 350 K/uL 06/30/2024 6:48 PM [facility] MPV 06/30/2024 6:48 PM [facility] Comment:Parameter not availa ble NEUTROPHILS 70 % 06/30/2024 6:48 PM [facility] LYMPHOCYTES 16 % 06/30/2024 6:48 PM [facility] MONOCYTES 9 % 06/30/2024 6:48 PM [facility] EOSINOPHILS 3 % 06/30/2024 6:48 PM [facility] BASOPHILS 1 % 06/30/2024 6:48 PM [facility] IMMATURE GRANULOCYTES 1 % 06/30/2024 6:48 PM [facility] Comment:IG (Immature Granulo cyte) count includes Metamyelocytes, Myelocytes, and Promyelocytes NEUTROPHIL ABSOLUTE 3.73 1.90 - 7.00 K/uL 06/30/2024 6:48 PM [facility] LYMPHOCYTE ABSOLUTE 0.86 0.70 - 4.50 K/uL 06/30/2024 6:48 PM CONSULTING IT ARCHITECT [facility] MONOCYTE ABSOLUTE 0.47 0.10 - 1.30 K/uL 06/30/2024 6:48 PM CONSULTING IT ARCHITECT [facility] EOSINOPHIL ABSOLUTE 0.18 0.00 - 0.70 K/uL 06/30/2024 6:48 PM CONSULTING IT ARCHITECT [facility] BASOPHILS ABSOLUTE 0.07 0.00 - 0.20 K/uL 06/30/2024 6:48 PM CONSULTING IT ARCHITECT [facility] IMMATURE GRANULOCYTES ABSOLUTE 0.03 0.00 - 0.03 K/uL 06/30/2024 6:48 PM CONSULTING IT ARCHITECT [facility] Blood Venipuncture / Unknown 06/30/2024 6:10 PM CONSULTING IT ARCHITECT 06/30/2024 6:40 PM CONSULTING IT ARCHITECT Gerry Caal DO HEMATOLOGY ORDERABLES Final Res ult [facility] CLIA# [id number] [address] [place] [address] * TYPE AND SCREEN (06/30/2024 6:10 PM CONSULTING IT ARCHITECT) ABO GROUP A 06/30/2024 7:40 PM CONSULTING IT ARCHITECT [facility] RH (D) TYPE Positive 06/30/2024 7:40 PM CONSULTING IT ARCHITECT [facility] ANTIBODY SCREEN Negative 06/30/2024 7:40 PM CONSULTING IT ARCHITECT [facility] Blood Venipuncture / Unknown 06/30/2024 6:10 PM CONSULTING IT ARCHITECT 06/30/2024 6:31 PM CONSULTING IT ARCHITECT Gerry Caal DO BLOOD BANK ORDERABLES Edited Re sult - Final [facility] CLIA# [id number] [place] [address] from Last 3 Months Insurance [facility] MEDICAID Care Teams Video Recorder Mechanic Relationship Specialty Start Date End Date Carlos Mcdonnell DO PCP - General 11/18/07
--- OUTSIDE RECORDS SUMMARY | 2024-09-12 22:07 | XMS_ITS | Clinical Summary ---
Author Organization [facility] Address [address] [place] [address] Care Team Providers Care Marketing Sales Manager Name Role Phone Braydon Pavon Primary Care Provider [phone] Source Comments [facility],non-owned Affiliates and Associated Physician Practices is amultiple site organization consisting of ambulatory clinics and hospital sitesin [place], [place], [place] and [place]. This disclosure is being madepursuant to the Care Everywhere program and may not contain all information available regarding this patient. Last updated 18.[facility] Allergies Active Allergy Reactions Criticality Noted Date [...] WC - CONFIRMED WITH [facility] [phone], Reason: Provider adjusted, Reported on 06/09/2024 blood [...] dissolve on the tongue Active HYDROcodone-ac etaminophen ([place]) 10-325 MG tablet Take 1 (one) tablet [...] Insulin Regular Human (HUMULIN R U-500 IKPEN FL) Inject 200 Units subcutaneously 3 times daily [...] -supportive tx - fluids, zofran, replete lytes Family History Medical History Relation Name Comments [...] very hard 06/08/2024 [facility] [place] [facility] Occupat ional Health - Occupational Stress [...] any time in the past 12 m [facility], were you homeless or living in a [place] health care facility (including now)? No 06/08/2024 Sex and Gender Information Value Date Recorded Sex Assigned at Not on file Legal Sex Male 8:18 AM RESIDENTIAL FEE APPRAISER Gender Identity Not on file Sexual Orientation Not on file Last Filed Vital Signs Vital Sign Reading Time Taken Comments Blood Pressure 110/69 06/10/2024 3:45 PM RESIDENTIAL FEE APPRAISER Pulse 81 06/10/2024 3:45 PM RESIDENTIAL FEE APPRAISER Temperature 36.8 C (98.2 F) 06/10/2024 3:45 PM RESIDENTIAL FEE APPRAISER Respiratory Rate 19 06/10/2024 3:45 PM RESIDENTIAL FEE APPRAISER Oxygen Saturation 94% 06/10/2024 3:45 PM RESIDENTIAL FEE APPRAISER Inhaled Oxygen Concentration - - Weight 99.8 kg (220 lb) 06/08/2024 3:47 PM RESIDENTIAL FEE APPRAISER Height 170.2 cm (5' 7 ) 06/08/2024 3:47 PM RESIDENTIAL FEE APPRAISER Body Mass Index 34.46 06/08/2024 3:47 PM RESIDENTIAL FEE APPRAISER Plan of Treatment Health Maintenance Due Date [...] VACCINE (3 - season) 2024 12/29/2020, 12/08/2020 DEPRESSION SCREENING 05/04/2024 [...] Procedure Name Priority Date/Time Associated Diagnosis Comments BASIC METABOLIC PANEL (CALCIUM TOTAL) AM Draw 06/10/2024 4:45 AM RESIDENTIAL FEE APPRAISER HEMOGLOBIN A1C Routine 06/09/2024 1:59 AM RESIDENTIAL FEE APPRAISER from Last 3 Months or Most Recently Relevant to Health Maintenance Results * (ABNORMAL) BASIC METABOLIC PANEL (CALCIUM TOTAL) (06/10/2024 4:45 AM RESIDENTIAL FEE APPRAISER) Glucose 107(H) 70 - 99 mg/dL 06/10/2024 5:25 AM RESIDENTIAL FEE APPRAISER [facility] Sodium 139 136 - 145 mmol/L 06/10/2024 5:25 AM RESIDENTIAL FEE APPRAISER [facility] Potassium 3.4(L) 3.5 - 5.1 mmol/L 06/10/2024 5:25 AM RESIDENTIAL FEE APPRAISER [facility] Chloride 107 98 - 107 mmol/L 06/10/2024 5:25 AM RESIDENTIAL FEE APPRAISER [facility] CO2 22 22 - 29 mmol/L 06/10/2024 5:25 AM RESIDENTIAL FEE APPRAISER [facility] Calcium 8.2(L) 8.4 - 10.4 mg/dL 06/10/2024 5:25 AM [facility] Anion Gap 10 6 - 16 mmol/L 06/10/2024 5:25 AM [facility] BUN 15 7 - 26 mg/dL 06/10/2024 5:25 AM [facility] Creatinine 0.70(L) 0.72 - 1.25 mg/dL 06/10/2024 5:25 AM [facility] eGFR by CKD-EPI >90 >=90 mL/min/1.7 3 m2 06/10/2024 5:25 AM [facility] Blood BLOOD SPECIMEN / Unknown Venipuncture / Unknown 06/10/2024 4:45 AM RESIDENTIAL FEE APPRAISER 06/10/2024 5:01 AM [facility] Olimpia No MD LAB - CHEMISTRY ORDERABLES Fi nal Result [facility] [id number] [place] [address] * (ABNORMAL) HEMOGLOBIN A1C (06/09/2024 1:59 AM [facility]) Hemoglobin A1c 9.1(H) <5.7 % 06/09/2024 2:28 AM [facility] Estimated Average Glucose 214 mg/dL 06/09/2024 2:28 AM [facility] Blood BLOOD SPECIMEN / Unknown Venipuncture / Unknown 06/09/2024 1:59 AM RESIDENTIAL FEE APPRAISER 06/09/2024 2:15 AM [facility] Narrative [facility] - 06/09/2024 2:28 AM [facility] HbA1c Interpretation: Normal: < 5.7% Pre-diabetes: 5.7-6.4% [...] LAB - CHEMISTRY ORDERABLES Anastasiya enciso Result [facility] [address] [place] [address] from Last 3 Months or Most Recently Relevant to Health Maintenance Insurance MEDICAID [employer] [place] Advance Directives * Full Code (Latest Code Status on File) Date Activated Date Inactivated Comments 06/08/2024 3:48 PM 06/10/2024 7:18 PM Care Teams Marketing Sales Manager Relationship Specialty Start Date End Date Braydon Pavon PA [address] [place] [address] PCP - General Physician Dry Chain Puller 07/14/23
--- OUTSIDE RECORDS SUMMARY | 2024-09-12 22:20 | XMS_ITS | Continuity of Care Document ---
Author Organization [facility] Address [address] [place] [address] Phone Care Team Providers Care Climbing Guide Name Role Phone Roosevelt Mcgee MD Unavailable [...] route every day 5 MG - Active Emerson 10 mg-325 mg tablet take 1 tablet [...] Copied on Encounter OFFICE/OUTPA TIENT VISIT, EST [facility], [address] [place], [id number], [place] tel:[phone] [facility] anxiety1 (chief complaint) DM (chief complaint) liver cirrhosis (chief complaint) GERD1 (chief complaint) chronic pain (chief complaint) Type 2 diabetes mellitus without complicationsGenera lized Anxiety DisorderOther cirrhosis of liverChronic pain syndrome 2-[address] [place], [id number] , . tel:[phone] Referring Provider: Roosevelt Mcgee [address] [place], [place], [id number]. tel:[phone] Family History Family Member Type Diagnosis Age [...] takes lantus, tradejnta, humalog. His BG is [id number]. Pt sees endo for his DM. Pt [...] Status Date Cognitive Assessment Orientation - [place] ed to time, place, person, situation.
--- NOTE | 2024-09-12 22:27 | ED_ITS ---
HPI - Back Pain/Injury General Chief Complaint: Back Pain/Injury Stated Complaint: Back pain Source: patient Mode of arrival: ambulatory Limitations: no limitations History of Present Illness HPI Narrative: Patient is a 54-year-old male with acute on chronic lumbar spine pain. [place] 2 [place] He was asking for Dilaudid by name and said he gets that every time he comes to the ER for back pain. He takes hydrocodone 6 times a day according to his history. He has Flexeril at home. He will not take steroids due to diabetes. MD elicited complaint: back pain and back injury Pertinent past history: prior back pain and recent trauma Onset (ago): day(s) ( Three) Timing: constant Severity: moderate Pain scale (0-10): 6 Similar Symptoms Previously: Yes Quality: sharp Location: lumbar spine Radiation: none Exacerbating factors: movement Relieving factors: immobilization Context: fall and trauma Associated symptoms: denies other symptoms Treatments prior to arrival: prescription analgesics Work related injury: No Related Data Home Medications ?Medication ?Instructions ?Recorded ?Confirmed ?Last Taken ?Type albuterol sulfate 90 mcg/actuation 2 puff inhalation Q8-10H PRN 02/19/20 03/22/24 Unknown History aerosol inhaler Wheezing alprazolam 1 mg tablet 0.5 mg PO TID PRN Anxiety 09/04/20 03/22/24 Unknown History ondansetron HCl 4 mg tablet 4 mg PO BID PRN Nausea 09/04/20 03/22/24 Unknown History liraglutide 0.6 mg/0.1 mL (18 mg/3 See Rx Instructions .Route .COMPLEX 03/05/21 03/22/24 Unknown History mL) subcutaneous pen injector (Victoza 3-Anatoliy) hydroxyzine HCl 25 mg tablet 25 mg PO QID 06/20/23 03/22/24 Unknown History trazodone 100 mg tablet 100 mg PO BID 06/20/23 03/22/24 Unknown History blood sugar diagnostic (OneTouch 02/23/24 03/22/24 Unknown History Ultra Test strips) blood-glucose sensor (DexWee Web G7 02/23/24 03/22/24 Unknown History Sensor device) carvedilol 3.125 mg tablet 3.125 mg PO DAILY 02/23/24 03/22/24 Unknown History dulaglutide 0.75 mg/0.5 mL 0.75 mg subcut DAILY 02/23/24 03/22/24 Unknown History subcutaneous pen injector (Trulicity) duloxetine 30 mg capsule,delayed 30 mg PO DAILY 02/23/24 03/22/24 Unknown History release famotidine 20 mg tablet 20 mg PO DAILY 02/23/24 03/22/24 Unknown History hydrochlorothiazide 25 mg tablet 25 mg PO DAILY 02/23/24 03/22/24 Unknown History hydrocodone 10 mg-acetaminophen 10 - 325 tablet PO DAILY 02/23/24 03/22/24 Unknown History 325 mg tablet insulin glargine 100 unit/mL (3 100 unit subcut DIRECTED 02/23/24 03/22/24 Unknown History mL) subcutaneous pen (Lantus Solostar U-100 Insulin) insulin lispro 100 unit/mL 100 unit subcut DIRECTED 02/23/24 03/22/24 Unknown History subcutaneous pen (Humalog KwikPen (U-100) Insulin) insulin regular hum U-500 conc 500 500 unit subcut DIRECTED 02/23/24 03/22/24 Unknown History unit/mL(3 mL) subcut pen (Humulin R U-500 (Conc) Insulin Kwikpen) lactulose 10 gram/15 mL oral 10 g PO DAILY 02/23/24 03/22/24 Unknown History solution (Enulose) metformin 500 mg tablet,extended 500 mg PO DAILY 02/23/24 03/22/24 Unknown History release 24 hr pen needle, diabetic 31 gauge x 02/23/24 03/22/24 Unknown History 5/16 (TRUEplus Pen Needle) pregabalin 200 mg capsule 200 mg PO DAILY 02/23/24 03/22/24 Unknown History Allergies Allergy/AdvReac Type Severity Reaction Status Date / Time aztreonam (Azactam) Allergy Intermediate Unknown Verified 06/08/24 07:33 ciprofloxacin (Cipro) Allergy Intermediate Unknown Verified 06/08/24 07:33 esomeprazole (Nexium) Allergy Intermediate Unknown Verified 06/08/24 07:33 octreotide Allergy Intermediate Unknown Verified 06/08/24 07:33 sulfanilamide Allergy Intermediate Unknown Verified 06/08/24 07:33 erythromycin base Allergy Unknown Unknown Verified 06/08/24 07:33 Penicillins Allergy Unknown Unknown Verified 06/08/24 07:33 Sulfa (Sulfonamide Allergy Unknown Unknown Verified 06/08/24 07:33 Antibiotics) duloxetine Allergy Unknown Verified 06/08/24 07:33 magnesium Allergy Unknown Verified 06/08/24 07:33 nisoldipine Allergy Unknown Verified 06/08/24 07:33 prochlorperazine Allergy Unknown Verified 06/08/24 07:33 IVP dye Allergy Intermediate Unknown Uncoded 06/08/24 07:33 Contrast Media Allergy Unknown Unknown Uncoded 06/08/24 07:33 Review of Systems Review of Systems: All systems reviewed & are unremarkable except as noted in HPI and below Constitutional: Constitutional: Reports no additional constitutional complaints Eyes: Eyes: Reports no additional eye complaints ENT: Reports system reviewed and no additional complaints, except as doc umented Cardiovascular: Cardiovascular: Reports no additional cardiovascular complaints Respiratory: Respiratory: Reports no additional respiratory complaints Gastrointestinal: Gastrointestinal: Reports no additional gastrointestinal complaints Genitourinary: Genitourinary: Reports no additional male genitourinary complaints Musculoskeletal: Musculoskeletal: Reports no additional musculoskeletal complaints Integumentary/Breasts: Skin/Breast: Reports system reviewed and no additional complaints, except as docu Neurologic: Reports system reviewed and no additional complaints, except as documented Psychiatric: Psychiatric: Reports no additional psychiatric complaints Endocrine: Endocrine: Reports no additional endocrine complaints Hematologic/Lymphatic: Hematologic/Lymphatic: Reports no additional hematologic/lymphatic complaints Allergic/Immunologic: Allergic/Immunologic: Reports no additional allergic/immunologic complaints PMFSH Past Medical History Medical History Chronic back pain Diabetes mellitus type 2 in obese Hepatic encephalopathy GI bleeding GERD (gastroesophageal reflux disease) Varices, esophageal Liver failure Surgical History Surgical History S/P TIPS (transjugular intrahepatic portosystemic shunt) Social History Social History Smoking status: Former smoker Alcohol intake: never Substance use: never Living arrangements: with family Exam Const: General: healthy appearing Nutritional Appearance: well nourished Orientation/consciousness: patient oriented x3 Limitations: no limitations HENMT: Head: normal to inspection Ears: external ears normal Face/Nose/Sinus: Normal external nose present Eyes: Conjunctivae: conjunctivae normal Pupils: Equal, round and reactive pupils present EOM: EOMs intact bilaterally Neck: Neck: normal visual inspection Chest: Chest palpation & inspection: normal inspection of the chest Resp: Effort & Inspection: normal respiratory effort and not labored Auscultation: clear to auscultation bilaterally and no crackles Cardio: Rate: regular rate Rhythm: regular rhythm Heart sounds: no murmurs GI: Inspection: non-distended GI Palp: Yes Soft to palpation and No Tenderness to palpation present (GI) Auscultation: normal bowel sounds : General: Yes bladder normal to palpation Back/Spine/Pelvis: Back: no CVA tenderness Skin: General skin exam: normal color Rashes: no rashes Wounds: no wounds Neuro: General: patient oriented x3 Cranial nerves: Yes Nystagmus not present Speech: normal speech Extrem: General: normal to inspection Psych: Mental Status: mental status grossly normal Affect: normal affect Attitude: cooperative Course Vital Signs Vital signs: Vital Signs Temperature 36.6 C 09/12/24 22:29 Pulse Rate 100 09/12/24 22:29 Respiratory Rate 20 09/12/24 22:29 Blood Pressure 160/85 H 09/12/24 22:29 Pulse Oximetry 95 09/12/24 22:29 Oxygen Delivery Room Air 09/12/24 22:29 Temperature 36.6 C 09/12/24 22:29 Pulse Rate 100 09/12/24 22:29 Respiratory Rate 20 09/12/24 22:29 Blood Pressure 160/85 H 09/12/24 22:29 Pulse Oximetry 95 09/12/24 22:29 Oxygen Delivery Room Air 09/12/24 22:29 MDM - Back Pain/Injury MDM Narrative Medical decision making narrative: patient is a 54-year-old male with acute on chronic lumbar spine pain. Patient had drug-seeking behaviors on presentation and with me. I explained that I personally do not use Dilaudid for back pain. He said he has pain medication at home. He changed from needing dilaudid to doing x-rays. Imaging Data Attestation: I personally reviewed and interpreted this imaging study as follows: My impression: My initial reading of this lumbar x-ray is negative for acute process pending final reading by radiologist Discharge Plan Discharge Clinical Impression: Lumbago Qualifiers: Chronicity: acute Back pain laterality: bilateral Sciatica presence: without sciatica Qualified Code(s): M54.50 - Low back pain, unspecified Patient Disposition: Home Condition: Stable Instructions: Acute Low Back Pain (ED) Patient Language: Danish Prescriptions: No Action albuterol sulfate 90 mcg/actuation HFA aerosol inhaler 2 puff INHALATION Q8-10H PRN (Reason: Wheezing) alprazolam 1 mg tablet 0.5 mg PO TID PRN (Reason: Anxiety) ondansetron HCl 4 mg tablet 4 mg PO BID PRN (Reason: Nausea) cyclobenzaprine 10 mg tablet 10 mg PO TID PRN (Reason: muscle spasm) Qty: 20 0RF liraglutide [Victoza 3-Anatoliy] 0.6 mg/0.1 mL (18 mg/3 mL) pen injector See Rx Instructions .ROUTE .COMPLEX Rx Instructions: . Lagevrio (EUA) 200 mg capsule 800 mg PO Q12H 5 Days Qty: 40 0RF trazodone 100 mg tablet 100 mg PO BID hydroxyzine HCl 25 mg tablet 25 mg PO QID naproxen 500 mg tablet 500 mg PO BID PRN (Reason: pain) Qty: 14 0RF Rx Instructions: take with meals methocarbamol 750 mg tablet 1,500 mg PO TID Qty: 45 0RF triamcinolone acetonide 0.1 % ointment 1 applic topical TID 7 Days Qty: 15 0RF (DME) OneTouch Ultra Test Strip MISCELLANEOUS hydrocodone-acetaminophen 10-325 mg tablet 10 - 325 tablet PO DAILY carvedilol 3.125 mg tablet 3.125 mg PO DAILY famotidine 20 mg tablet 20 mg PO DAILY hydrochlorothiazide 25 mg tablet 25 mg PO DAILY metformin 500 mg tablet extended release 24 hr 500 mg PO DAILY insulin lispro [Humalog KwikPen Insulin] 100 unit/mL insulin pen 100 unit SUBCUT DIRECTED (DME) pen needle, diabetic [TRUEplus Pen Needle] 31 gauge x 5/16 needle MISCELLANEOUS duloxetine 30 mg capsule,delayed release(DR/EC) 30 mg PO DAILY lactulose [Enulose] 10 gram/15 mL solution 10 g PO DAILY pregabalin 200 mg capsule 200 mg PO DAILY insulin glargine [Lantus Solostar U-100 Insulin] 100 unit/mL (3 mL) insulin pen 100 unit SUBCUT DIRECTED (DME) [employer] G7 Sensor Device MISCELLANEOUS Trulicity 0.75 mg/0.5 mL pen injector 0.75 mg SUBCUT DAILY Humulin R U-500 (Conc) Kwikpen 500 unit/mL (3 mL) insulin pen 500 unit SUBCUT DIRECTED cyclobenzaprine 10 mg tablet 10 mg PO TID PRN (Reason: muscle spasm) Qty: 20 0RF omeprazole 20 mg capsule,delayed release(DR/EC) 20 mg PO BID Qty: 60 0RF Follow-up/Referrals: Librado,SONALI Huizar [Primary Care Provider] - Time of Disposition: 23:19
[2024-09-12 22:29] VITALS: BP 160/85; PULSE 100; RESP 20; TEMP 36.6; O2SAT 95
[2024-09-12 23:24] VITALS: BP 145/92; PULSE 95; RESP 20; O2SAT 97
== END 2024-09-12 23:24 | disposition home or self-care (01) ==
PROVIDERS: Emergency Provider Emergency Medicine; PCP Physician Assistant
DX: M54.50 Low back pain, unspecified (principal); E11.9 Type 2 diabetes mellitus without complications; Z87.891 Personal history of nicotine dependence
CPT/HCPCS: 72100; 99283

== ENCOUNTER 2024-09-27 13:51 | Outpatient (CLI) | payer OTHER, SELFPAY ==
--- NOTE | ~2024-09-27 | XR_ITS ---
Cervical Spine: AP, lateral, open-mouth views Clinical History: Pain Findings: There is straightening of the normal cervical lordosis. No fracture or subluxation seen. In tervertebral disc spaces are well preserved. Facet joints appear intact. Pre-vertebral soft tissues a re unremarkable. Impression: Mild straightening of the normal cervical lordosis, otherwise unremarkable exam. Reviewed, dictated and finalized at location . Impression: Mild straightening of the normal cervical lordosis, otherwise unremarkable exam .
--- OUTSIDE RECORDS SUMMARY | 2024-09-27 14:05 | XMS_ITS | Clinical Summary ---
Author Organization [facility] Address [address] [place] [address] Phone Care Team Providers Care Passenger Screener Name Role Phone Librado Braydon NEAL Primary Care Provider [phone] Vikram Mora MD Unavailable Riddhi Bello APRN, CIRCULAR HEAD SAW OPERATOR Unavailable Allergies Active Allergy Reactions Criticality [...] as needed. 3 Active ergocalciferol (VITAMIN D) 28680 UNIT Capsule Take 50,000 Units by mouth. Active Insulin Pen Needle (B-D ULTRAFINE III SHORT PEN) 31G X 8 MM Misc 1 Active Insulin Pen Needle (B-D ULTRAFINE III SHORT PEN) 31G X 8 MM Misc 1 Each by Subcutaneous route. 1 Active Insulin Pen Needle (Pen [place]) 32G X 4 MM Misc Inject 3 [...] 10 Tablet 4 Active Continuous Blood Gluc Director Process Improvement (Dexcom G7 Director Process Improvement) Device Check blood glucose before each meal and at bedtime 1 Each 4 Active HYDROcodone-bella taminophen ([place]) 10-325 MG Tablet Take 1 Tablet by [...] Type Department Care Team Description 08/24/2024 [facility]phone [facility] [address] [place] [id number] Riddhi Bello APRN, CNP 06/30/2024 Nurse [facility] [address] [place] [address] Riddhi Bello APRN, DOROTHY Blood in Vomit [...] on file Legal Sex Male 10:58 AM EXTRACT MIXER Gender Identity Not on file Sexual Orientation [...] A M CDT Height 170.2 cm (5' 7) 01/07/2024 8:47 AM CDT Body Mass Index 34.5 01/07/2024 8:47 AM CDT Plan of Treatment Upcoming Encounters Date Type Department Care Team (Late st Contact Info) Description 10/31/2024 10:30 AM CDT Office Visit [facility] - Neurology [facility] [address] [place] [address] Andrea Hawkins MD [address] [place] [address] Health Maintenance Due Date Last Done Comments [...] 1-dose 75+ series) 2045 03/24/2023, 12/02, 05/03/2005 Human Papillomavirus (HPV) Immunization Aged Out No longer eligible based on patient's age to complete this topic Meningococcal Immunization (ACWY) Aged Out No longer eligible based on patient's age to complete this topic Rotavirus Immunization Aged Out No lo nger eligible based on patient's age to complete this topic Procedures Procedure Name Priority Date/Time Associated Diagnosis Comments CMP (COMPREHENSIVE METABOLIC PANEL) STAT 11/13/2023 6:40 PM CDT HEMOGLOBIN A1C W/ ESTIMATED GLUCOSE STAT 05/20/2023 10:44 AM EXTRACT MIXER from Last 3 Months or Most Recently Relevant to Health Maintenance Results * (ABNORMAL) CMP (Comprehensive Metabolic Panel) (11/13/2023 6:40 PM CDT) SODIUM 139 136 - 145 mmol/L 11/13/2023 7:25 PM CDT [facility] POTASSIUM 3.7 3.5 - 5.1 mmol/L 11/13/2023 7:25 PM CDT [facility] CHLORIDE 105 98 [...] - 1.2 mg/dL 11/13/2023 7:25 PM CDT [facility] SGOT (AST) 27 5 - 34 U/L 11/13/2023 7:25 PM CDT [facility] SGPT (ALT) 17 0 - 55 U/L 11/13/2023 7:25 PM CDT [facility] ALKALINE PHOSPHATASE 90 40 - 150 U/L 11/13/2023 7:25 PM CDT [facility] GFR, ESTIMATED >60 >=60 11/13/2023 7:25 PM CDT [facility] Comment: Creatinine Clearance is the preferred criteria for selecting drug dose adjustments in renally impaired patients. The GFR is provided as additional pertinent clinical information. GFR is reported in mL/min/1.73 sq m. Calculation based on the Chronic Kidney Disease Epidemiology Collaboration (CKD- EPI) equation refit without adjustment for race. GFR, EST. >60 >=60 024 7:25 PM CDT [facility] GFR, EST. NONAFRICAN >60 >=60 11/13/2023 7:25 PM CDT [facility] Blood Venipuncture / Unknown 11/13/2023 6:40 PM CDT 11/13/2023 7:00 PM CDT Lul Smith Sandi DO CHEMISTRY ORDERABLES Fi nal Result Performing Organization Address [facility] Co de Phone Number [facility] [address] [place] [address] * (ABNORMAL) Hemoglobin A1C (05/20/2023 10:44 AM EXTRACT MIXER) HGB-A1C 11.6(H) 4.0 - 6.0 % 05/20/2023 12:30 PM EXTRACT MIXER [facility] Est Average Glucose 286.2 mg/dL 05/20/2023 12:30 PM EXTRACT MIXER [facility] Blood Venipuncture / Unknown 05/20/2023 10:44 AM EXTRACT MIXER 05/20/2023 11:01 AM EXTRACT MIXER Narrative [facility] - 05/20/2023 12:30 PM EXTRACT MIXER HEMOGLOBIN A1C: DIABETIC PATIENTS: WELL-CONTROLLED: 6.2 - 7.0 INTERMEDIATE WELL-CONTROLLED: 7.0 - 9.0 POORLY-CONTROLLED: >9.0 Felicitas Luz AQUATICS ASSISTANT DEPARTMENT HEAD, CIRCULAR HEAD SAW OPERATOR CHEMISTRY ORDERABLES Final Result Performing Organization Address [facility] Co de Phone Number [facility] [address] [place] [address] from Last 3 Months or Most Recently Relevant to Health Maintenance Insurance MEDICAID [employer]ET[employer] [facility] TPL Care Teams Passenger Screener Relationship Specialty Start Date End Date Braydon Pavon, [facility] [address] [place] [id number] PCP - General Physician Threading Machine Setter 06/22/18 Vikram Mora MD [address] [address] Consulting Physician Endocrinology 05/21/23 Riddhi Bello APRN, CIRCULAR HEAD SAW OPERATOR [address] [place] [address] Nurse Practitioner Advanced Practice Nurse 02/10/23
--- OUTSIDE RECORDS SUMMARY | 2024-09-27 14:05 | XMS_ITS | Clinical Summary ---
Author Organization [facility] Address [address] [place] [address] Care Team Providers Care Global Creative Chairman Name Role Phone Braydon Pavon Primary Care Provider [phone] Source Comments [facility],non-owned Affiliates and Associated Physician Practices is amultiple site organization consisting of ambulatory clinics and hospital sitesin [place], [place], [place]. This disclosure is being madepursuant to the Care Everywhere program and may not contain all information available regarding this patient. Last updated 18.[facility] Medical Management Allergies Active Allergy Reactions Criticality Noted Date [...] 200 UNITS TID WC - CONFIRMED WITH [facility] [phone], Reason: Provider adjusted, Reported on 06/09/2024 blood [...] dissolve on the tongue Active HYDROcodone-ac etaminophen ([place]) 10-325 MG tablet Take 1 (one) tablet [...] Insulin Regular Human (HUMULIN R U-500 IKPEN ID) Inject 200 Units subcutaneously 3 times daily [...] care, and heating? Not very hard 06/08/2024 [facility] - Occupational Stress [...] any time in the past 12 m [facility], were you homeless or living in a senior care (including now)? No 06/08/2024 Sex and Gender Information Value Date Recorded Sex Assigned at Not on file Legal Sex Male 8:18 AM LATEXER Gender Identity Not on file Sexual Orientation Not on file Last Filed Vital Signs Vital Sign Reading Time Taken Comments Blood Pressure 110/69 06/10/2024 3:45 PM LATEXER Pulse 81 06/10/2024 3:45 PM LATEXER Temperature 36.8 C (98.2 F) 06/10/2024 3:45 PM LATEXER Respiratory Rate 19 06/10/2024 3:45 PM LATEXER Oxygen Saturation 94% 06/10/2024 3:45 PM LATEXER Inhaled Oxygen Concentration - - Weight 99.8 kg (220 lb) 06/08/2024 3:47 PM LATEXER Height 170.2 cm (5' 7) 06/08/2024 3:47 PM LATEXER Body Mass Index 34.46 06/08/2024 3:47 PM LATEXER Plan of Treatment Health Maintenance Due Date [...] (CALCIUM TOTAL) AM Draw 06/10/2024 4:45 AM LATEXER HEMOGLOBIN A1C Routine 06/09/2024 1:59 AM LATEXER from Last 3 Months or Most Recently Relevant to Health Maintenance Results * (ABNORMAL) BASIC METABOLIC PANEL (CALCIUM TOTAL) (06/10/2024 4:45 AM LATEXER) Glucose 107(H) 70 - 99 mg/dL 06/10/2024 5:25 AM LATEXER [facility] Sodium 139 136 - 145 mmol/L 06/10/2024 5:25 AM LATEXER [facility] Potassium 3.4(L) 3.5 - 5.1 mmol/L 06/10/2024 5:25 AM LATEXER [facility] Chloride 107 98 - 107 mmol/L 06/10/2024 5:25 AM LATEXER [facility] CO2 22 22 - 29 mmol/L 06/10/2024 5:25 AM LATEXER [facility] Calcium 8.2(L) 8.4 - 10.4 mg/dL 06/10/2024 5:25 AM [facility] Anion Gap 10 6 - 16 mmol/L 06/10/2024 5:25 AM [facility] BUN 15 7 - 26 mg/dL 06/10/2024 5:25 AM [facility] Creatinine 0.70(L) 0.72 - 1.25 mg/dL 06/10/2024 5:25 AM [facility] eGFR by CKD-EPI >90 >=90 mL/min/1.7 3 m2 06/10/2024 5:25 AM [facility] Blood BLOOD SPECIMEN / Unknown Venipuncture / Unknown 06/10/2024 4:45 AM LATEXER 06/10/2024 5:01 AM [facility] Olimpia No MD LAB - CHEMISTRY ORDERABLES Fi nal Result [facility] [id number] [place] [id number] * (ABNORMAL) HEMOGLOBIN A1C (06/09/2024 1:59 AM [facility]) Hemoglobin A1c 9.1(H) <5.7 % 06/09/2024 2:28 AM [facility] Estimated Average Glucose 214 mg/dL 06/09/2024 2:28 AM [facility] Blood BLOOD SPECIMEN / Unknown Venipuncture / Unknown 06/09/2024 1:59 AM LATEXER 06/09/2024 2:15 AM [facility] Narrative [facility] - 06/09/2024 2:28 AM [facility] HbA1c Interpretation: Normal: < 5.7% [...] LAB - CHEMISTRY ORDERABLES Anastasiya enciso Result [facility] [address] [place] [address] from Last 3 Months or Most Recently Relevant to Health Maintenance Insurance MEDICAID [employer] [facility] Advance Directives * Full Code (Latest Code Status on File) Date Activated Date Inactivated Comments 06/08/2024 3:48 PM 06/10/2024 7:18 PM Care Teams Global Creative Chairman Relationship Specialty Start Date End Date Braydon Pavon PA [address] [place] [address] PCP - General Physician Silk Screen Printer Helper 07/14/23
--- OUTSIDE RECORDS SUMMARY | 2024-09-27 14:05 | XMS_ITS | Clinical Summary ---
Author Organization [facility] Address [address] [place] [address] Care Team Providers Care Supervisor Buffing And Pasting Name Role Phone Nacho Rodriguez MD Unavailable [phone] Elian Gross MD Unavailable Braydon Pavon Primary Care Provider [phone] Allergies Active Allergy Reactions Criticality Noted Date [...] 1 each 05/21/19 22 Active Dexcom G6 Gang Pusher misc 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 Use to [...] 05/20/2021 Assessment & Plan (05/22/2021 3:58 PM MEDIA JOB TITLES): A initial well visit to establish care [...] unless otherwise indicated. Need follow-up arranged with industrial sewer, cloth weigher Planning on referral to clock and watch hands painter Will need to check in to the tips follow-up Labs as ordered today, I will direct the A1 c to his cloth weigher's office. Continuing the current regimen for now. Blood pressure is controlled at this time. We may need to try to get the stress test done as well. Screen for colon cancer 03/01/2021 Overview (03/01/2021): Added automatically from request for surgery [id number] Diabetic neuropathy associat ed with type 2 diabetes mellitus 10/29/2020 Assessment & Plan (10/29/2020 4:23 PM CDT): Chronic, worsening Start, gabapentin therapy Work on better diabetic control Vitamin D deficiency 10/29/2020 Assessment & Plan (10/29/2020 4:23 PM CDT): Check labs and based on that for the plans Bacterial endocarditis 05/14/2020 Assessment & Plan (05/14/2020 11:09 AM MEDIA JOB TITLES): Unfortunately the patient's records from [place] are [...] 05/14/2020 Assessment & Plan (05/14/2020 11:11 AM MEDIA JOB TITLES): The patient's dyspnea on exertion is likely [...] resume home regimen and follow-up with home cloth weigher MATHEUS pain 10/11/2017 Morbid obesity 12/09/2016 TRACY [...] Type Department Care Team Description 07/06/2024 Documentation [facility] [address] [place] [address] [place] [address] Sean Rodas, BETHANY 07/05/2024 9:40 AM MEDIA JOB TITLES - 07/05/2024 11:59 PM MEDIA JOB TITLES Hospital Encounter [facility] [address] [place] [address] Hepatic cirrhosis, unspecified hepatic cirrhosis type, unspecified whether ascites present (HCC) Discharge Disposition: Discharge to home or self care 07/05/2024 Results Follow-Up [facility] [address] [place] [address] [place] [address] Nilton Whatley MD US Liver W Complete Doppler (C) from Last 3 Months Immunizations Immunization Administration [...] on file Legal Sex Male 2:52 PM MEDIA JOB TITLES Gender Identity Male 10/29/2020 12:37 PM CDT Sexual Orientation Straight 10/29/2020 12 :37 PM CDT Obstetrics History Last Filed Vital Signs Vital Sign Reading Time Taken Comments Blood Pressure 117/76 06/02/2024 7:36 AM MEDIA JOB TITLES Pulse 88 06/02/2024 7:36 AM MEDIA JOB TITLES Temperature 36.7 C (98.1 F) 06/02/2024 7:36 AM MEDIA JOB TITLES Respiratory Rate 17 01/20/2024 12:0 0 PM CDT Oxygen Saturation 92% 06/02/2024 7:36 AM MEDIA JOB TITLES Inhaled Oxygen Concentration - - Weight 103.1 kg (227 lb 6.4 oz) 06/02/2024 7:36 AM MEDIA JOB TITLES Height 172.7 cm (5' 8) 11/23/2023 7:53 AM CDT Body Mass Index [...] - 2023-2 5 season) 2024 12/29/2020, 12/08/2020 Hemoglobin A1C 12/07/2024 06/09/2024, 11/02, 11/23/2023, Additional history exists Influenza Vaccine (Season Ended) 2025 eGFR 06/02/2025 06/02/2024, 01/02, 11/23/2023, Additional history exists Lipid Panel 06/09/2025 06/09/2024, 05/04, 08/28/2017, Additional history exists Colon Cancer Screening-Colonoscopy 12/17/20302020 Hepatitis C Screening Completed 08/23/2015 Medical Devices Implanted Type Area Electromechanic Device Identifier Shelf Expiration Date Model / Serial / Lot Bard Peripheral Vascular [id number] Lifestar 14mm 60mm 80cm Stent Biliary - [id number] Implanted:Qty: 1 on 01/10/2021 at [facility] [employer] Peripheral Vascular 09/15/2023 [id number] / / [id number] Procedures Procedure Name Priority Date/Time Associated Diagnosis Comments US LIVER W COMPLETE DOPPLER Schedule Routine, Read Routine (OP Routine) 07/05/2024 11:25 AM MEDIA JOB TITLES Hepatic cirrhosis, unspecified hepatic cirrhosis type, unspecified whether ascites present (HCC) EGFR Routine 06/02/2024 8:48 AM MEDIA JOB TITLES Hepatic cirrhosis, unspecified hepatic cirrhosis type, unspecified whether ascites present (HCC) HEMOGLOBIN A1C STAT 11/23/2023 8:40 AM CDT LIPID PANEL Routine 05/20/2021 9:36 AM MEDIA JOB TITLES Morbid obesity with body mass index (BMI) of 40.0 to 44.9 in adult (HCC) ALBUMIN CREATININE RATIO, URINE Routine 05/20/2021 9:36 AM MEDIA JOB TITLES Diabetic neuropathy associated with type 2 diabetes mellitus (HCC) COLONOSCOPY 12/17/2020 10:24 AM CDT SERUM HEPATITIS PANEL Routine 08/23/2015 5:23 PM CDT from Last 3 Months or Most Recently Relevant to Health Maintenance Results * US Liver W Complete Doppler (C) (07/05/2024 11:25 AM MEDIA JOB TITLES) Anatomical Region Laterality Modality Abdomen N/A Ultrasound 07/05/2024 11:3 7 AM MEDIA JOB TITLES Impressions 07/05/2024 11:57 AM MEDIA JOB TITLES 1. Sonographic features of cirrhosis. 2. US [...] Maurice Paul M.D. Narrative 07/05/2024 11:57 AM MEDIA JOB TITLES EXAMINATION: 1. LIVER SONOGRAM 2. LIVER DOPPLER [...] Re sult * eGFR (06/02/2024 8:48 AM MEDIA JOB TITLES) eGFR >90 >=60 mL/min/1. 73 m2 Comment: [...] last reviewed 2021. Blood 06/02/2024 8:48 AM MEDIA JOB TITLES 06/02/2024 9:05 AM MEDIA JOB TITLES us Nilton Whatley MD LAB BLOOD ORDERABLES Final Result [facility] One [facility] Department [place] [address] * (ABNORMAL) Hemoglobin A1c (11/23/2023 [...] ORDERABLES Fi nal Result Performing Organization Address [facility] [[email or web address]] Co de Phone Number [facility] One [facility] Department [place] [address] * Albumin Creatinine Ratio, Urine (05/20/2021 9:36 AM MEDIA JOB TITLES) Albumin Ur <12.0 mg/L MOHNIDER Comment: Interpretive Data No reference range established. Current interpretive data was last revised 2018. Creatinine Ur 47.6 mg/dL MOHINDER Comment: Interpretive Data No reference range established. Current interpretive data was last revised 2018. Albumin Creatinine Ratio, Ur <25 1 - 29 mg/g MOHINDER Urine 05/20/2021 9:36 AM MEDIA JOB TITLES 05/20/2021 7:41 PM MEDIA JOB TITLES Simon Lundberg MD LAB URINE ORDERABLES Final Result Performing Organization Address City/[facility]/ZIP Co de Phone Number [facility] [address] [address] Department [place] [address] * (ABNORMAL) Lipid panel (05/20/2021 9:36 AM MEDIA JOB TITLES) Cholesterol 110 30 - 199 mg/dL MOHINDER [...] ratio 3 MOHINDER Blood 05/20/2021 9:36 AM MEDIA JOB TITLES 05/20/2021 7:41 PM MEDIA JOB TITLES us Simon Lundberg MD LAB BLOOD ORDERABLES Final Result [facility] [id number] [address] Department of Laboratories [place], [place] [id number] * COLONOSCOPY (12/17/2020 10:24 AM CDT) Anatomical Region Laterality Modality Other Narrative Procedure Note Elian Gross MD - 12/17/2020 10:24 AM CDT ENDOSCOPY LAB Patient Name: Camilo Curry Procedure Date: 12/17/2020 10:24 AM Date of : 1970 Admit Type: Outpatient Age: 50 Gender: Male Attending MD: Elian Vivar M.D. Room: [facility] ENDOSCOPY ROOM 02 Note Status: [...] the physician, the nurse, the anesthesiologist, the marble helper and thetechnician in the pre-procedure area in [...] The scope was passed under direct vision.The [id number] was introduced through the anusand advanced to the hepatic flexure. The colonoscopywas performed without difficulty. The patient tolerated the procedure well. The quality of the bowel preparation was unsatisfactory. The quality of the bowel preparation was evaluated using the BBPS([place] Bowel Preparation Scale) with scores of: RightColon [...] 10:24 AM us Elian Draper MD ENDOSCOPY HI OCEDURES Final Result * Serum Hepatitis panel (08/23/2015 5:23 PM CDT) HBV surface ag Negative NEG HISTO RICAL RESULTS HCV ab Negative NEG HISTORICAL RESULTS Comment: Interpretive Data If confirmation is required, call Laboratory Customer Service to request sample to be sent to [facility] for Hepatitis C Virus (HCV) RNA Detection and Quantitation by Real-Time Reverse Agency Director-PCR (RT-PCR). Current interpretive data was last [...] Most Recently Relevant to Health Maintenance Insurance [facility] AETNA [facility] AETNA [facility] Advance Directives For more information, please contact: [phone] * Full Code (Latest Code Status on [...] 11:57 AM 02/03/2018 5:26 AM Care Teams Supervisor Buffing And Pasting Relationship Specialty Start Date End Date Braydon Pavon PA [address] [place] [address] PCP - General 08/23/21 [place] [id number] [address] Consulting Physician Endocrinology 05/20/21 [place] [address] [address] Consulting Physician Internal Medicine 05/20/21
--- OUTSIDE RECORDS SUMMARY | 2024-09-27 14:05 | XMS_ITS | Referral Summary ---
Author Organization [facility] Address [address] [place] [address] Care Team Providers Care Chute Worker Name Role Phone Nacho Rodriguez MD Unavailable [phone] Elian Gross MD Unavailable Braydon Pavon Primary Care Provider [phone] Encounters Date Type Department Care Team Description 07/06/2024 Documentation [facility] [address] [facility] [address] [place] [address] [place] [address] Sean Rodas RN 07/05/2024 Results Follow-Up [facility] [address] [facility] [address] [place] [address] [place] [address] Nilton Whatley MD US Liver W Complete Doppler (C) 07/05/2024 9:40 AM AFRICAN HISTORY PROFESSOR - 07/05/2024 11:59 PM AFRICAN HISTORY PROFESSOR Hospital Encounter [facility] ([facility] [address] [place] [address] Hepatic cirrhosis, unspecified hepatic cirrhosis type, unspecified [...] 1 each 05/21/19 22 Active Dexcom G6 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 Use to [...] 05/20/2021 Assessment & Plan (05/22/2021 3:58 PM AFRICAN HISTORY PROFESSOR): A initial well visit to establish care [...] unless otherwise indicated. Need follow-up arranged with labor relations worker, truck engine technician Planning on referral to ornamental painter Will need to check in to the tips follow-up Labs as ordered today, I will direct the Jeremi c to his truck engine technician's office. Continuing the current regimen for now. Blood pressure is controlled at this time. We may need to try to get the stress test done as well. Screen for colon cancer 03/01/2021 Overview (03/01/2021): Added automatically from request for surgery [id number] Diabetic neuropathy associat ed with type 2 diabetes mellitus 10/29/2020 Assessment & Plan (10/29/2020 4:23 PM CDT): Chronic, worsening Start, gabapentin therapy Work on better diabetic control Vitamin D deficiency 10/29/2020 Assessment & Plan (10/29/2020 4:23 PM CDT): Check labs and based on that for the plans Bacterial endocarditis 05/14/2020 Assessment & Plan (05/14/2020 11:09 AM AFRICAN HISTORY PROFESSOR): Unfortunately the patient's records from [place] are not available for my review. We [...] 05/14/2020 Assessment & Plan (05/14/2020 11:11 AM AFRICAN HISTORY PROFESSOR): The patient's dyspnea on exertion is likely [...] - follow up in 6 weeks with HOSE HANDLER Chelsea Driscoll ( to discuss about insulin [...] resume home regimen and follow-up with home truck engine technician RUQ pain 10/11/2017 Morbid obesity 12/09/2016 TRACY [...] on file Legal Sex Male 2:52 PM AFRICAN HISTORY PROFESSOR Gender Identity Male 10/29/2020 12:37 PM CDT Sexual Orientation Straight 10/29/2020 12 :37 PM CDT Last Filed Vital Signs Vital Sign Reading Time Taken Comments Blood Pressure 117/76 06/02/2024 7:36 AM AFRICAN HISTORY PROFESSOR Pulse 88 06/02/2024 7:36 AM AFRICAN HISTORY PROFESSOR Temperature 36.7 C (98.1 F) 06/02/2024 7:36 AM AFRICAN HISTORY PROFESSOR Respiratory Rate 17 01/20/2024 12:0 0 PM CDT Oxygen Saturation 92% 06/02/2024 7:36 AM AFRICAN HISTORY PROFESSOR Inhaled Oxygen Concentration - - Weight 103.1 kg (227 lb 6.4 oz) 06/02/2024 7:36 AM AFRICAN HISTORY PROFESSOR Height 172.7 cm (5' 8) 11/23/2023 7:53 AM CDT Body Mass Index 34.58 11/23/2023 7:53 AM CDT Plan of Treatment Not on file Medical Devices Implanted Type Area Mother Superior Device Identifier Shelf Expiration Date Model / Serial / Lot Bard Peripheral Vascular [id number] Lifestar 14mm 60mm 80cm Stent Biliary - [id number] Implanted:Qty: 1 on 01/10/2021 at [facility] [employer]ipheral [employer]ascular 09/15/2023 [id number] / / [id number] Procedures Procedure Name Priority Date/Time Associated Diagnosis Comments US LIVER W COMPLETE DOPPLER Schedule Routine, Read Routine (OP Routine) 07/05/2024 11:25 AM AFRICAN HISTORY PROFESSOR Hepatic cirrhosis, unspecified hepatic cirrhosis type, unspecified whether ascites present (HCC) EGFR Routine 06/02/2024 8:48 AM AFRICAN HISTORY PROFESSOR Hepatic cirrhosis, unspecified hepatic cirrhosis type, unspecified whether ascites present (HCC) HEMOGLOBIN A1C STAT 11/23/2023 8:40 AM CDT LIPID PANEL Routine 05/20/2021 9:36 AM AFRICAN HISTORY PROFESSOR Morbid obesity with body mass index (BMI) of 40.0 to 44.9 in adult (HCC) ALBUMIN CREATININE RATIO, URINE Routine 05/20/2021 9:36 AM AFRICAN HISTORY PROFESSOR Diabetic neuropathy associated with type 2 diabetes mellitus (HCC) COLONOSCOPY 12/17/2020 10:24 AM CDT SERUM HEPATITIS PANEL Routine 08/23/2015 5:23 PM CDT from Last 3 Months or Most Recently Relevant to Health Maintenance Results * US Liver W Complete Doppler (C) (07/05/2024 11:25 AM AFRICAN HISTORY PROFESSOR) Anatomical Region Laterality Modality Abdomen N/A Ultrasound 07/05/2024 11:3 7 AM AFRICAN HISTORY PROFESSOR Impressions 07/05/2024 11:57 AM AFRICAN HISTORY PROFESSOR 1. Sonographic features of cirrhosis. 2. US [...] Maurice Paul M.D. Narrative 07/05/2024 11:57 AM AFRICAN HISTORY PROFESSOR EXAMINATION: 1. LIVER SONOGRAM 2. LIVER DOPPLER [...] Re sult * eGFR (06/02/2024 8:48 AM AFRICAN HISTORY PROFESSOR) eGFR >90 >=60 mL/min/1. 73 m2 Comment: [...] last reviewed 2021. Blood 06/02/2024 8:48 AM AFRICAN HISTORY PROFESSOR 06/02/2024 9:05 AM AFRICAN HISTORY PROFESSOR Nilton Whatley MD LAB BLOOD ORDERABLES Final Result [facility] One [facility] Department [place] [address] * (ABNORMAL) Hemoglobin A1c (11/23/2023 8:40 AM CDT) Hgb A1C 10.0(H) 4.0 - 5.6 % Estimated Average Glucose 240 mg/dL MOHINDER [facility] Comment: The ADA recommends reporting an estimated Average Glucose (eAG) with all Hemoglobin A1c results using the equation derived from a study of 507 normal and diabetic adults. Minority populations were underrepresented and children were not included. (Diabetes Care 2020; 43(S1): S66-S76). The eAG is not equivalent to a fasting glucose. Blood 11/23/2023 8:40 AM CDT 11/23/2023 8:56 AM CDT Stepehn Buckner MD LAB BLOOD ORDERABLES Fi nal Result Performing Organization Address [facility] Co de Phone Number [facility] Department [place] [address] * Albumin Creatinine Ratio, Urine (05/20/2021 9:36 AM AFRICAN HISTORY PROFESSOR) Albumin Ur <12.0 mg/L MOHINDER Comment: Interpretive Data No reference range established. Current interpretive data was last revised 2018. Creatinine Ur 47.6 mg/dL MOHINDER Comment: Interpretive Data No reference range established. Current interpretive data was last revised 2018. Albumin Creatinine Ratio, Ur <25 1 - 29 mg/g MOHINDER Urine 05/20/2021 9:36 AM AFRICAN HISTORY PROFESSOR 05/20/2021 7:41 PM AFRICAN HISTORY PROFESSOR Simon Lundberg MD LAB URINE ORDERABLES Final Result Performing Organization Address [facility] Co de Phone Number [facility] [address] Department [place] [address] * (ABNORMAL) Lipid panel (05/20/2021 9:36 AM AFRICAN HISTORY PROFESSOR) Cholesterol 110 30 - 199 mg/dL MOHINDER [...] ratio 3 MOHINDER Blood 05/20/2021 9:36 AM AFRICAN HISTORY PROFESSOR 05/20/2021 7:41 PM AFRICAN HISTORY PROFESSOR us Simon Lundberg MD LAB BLOOD ORDERABLES Final Result [facility] [address] Department [place] [address] * COLONOSCOPY (12/17/2020 10:24 AM CDT) Anatomical Region Laterality Modality Other Narrative Procedure Note Elian Gross MD - 12/17/2020 10:24 AM CDT ENDOSCOPY LAB Patient Name: Camilo Curry Procedure Date: 12/17/2020 10:24 AM Date of : 1970 Admit Type: Outpatient Age: 50 Gender: Male Attending MD: Elian Vivar M.D. Room: [facility] ENDOSCOPY ROOM 02 Note Status: Finalized [...] the physician, the nurse, the anesthesiologist, the student specialist and thetechnician in the pre-procedure area [...] The scope was passed under direct vision.The [id number] was introduced through the anusand advanced to the hepatic flexure. The colonoscopywas performed without difficulty. The patient tolerated the procedure well. The quality of the bowel preparation was unsatisfactory. The quality of the bowel preparation was evaluated using the BBPS([place] Bowel Preparation Scale) with scores of: RightColon [...] 10:24 AM us Elian Draper MD ENDOSCOPY NE OCEDURES Final Result * Serum Hepatitis panel (08/23/2015 5:23 PM CDT) HBV surface ag Negative NEG HISTO RICAL RESULTS HCV ab Negative NEG HISTORICAL RESULTS Comment: Interpretive Data If confirmation is required, call Laboratory Customer Service to request sample to be sent to [facility] for Hepatitis C Virus (HCV) RNA Detection and Quantitation by Real-Time Reverse Chicken Handler-PCR (RT-PCR). Current interpretive data was last revised [...] Most Recently Relevant to Health Maintenance [facility] Advance Directives For more information, please contact: [phone] * Full Code (Latest Code Status on [...] 11:57 AM 02/03/2018 5:26 AM Care Teams Chute Worker Relationship Specialty Start Date End Date Braydon Pavon PA [address] [place] [address] PCP - General 08/23/21 [place] [address] [address] [facility] [address] [place] [address] Consulting Physician Endocrinology 05/20/21 [place] [address] [address] [facility] [address] [place] [address] Consulting Physician Internal Medicine 05/20/21
--- OUTSIDE RECORDS SUMMARY | 2024-09-27 14:05 | XMS_ITS | Continuity of Care Document ---
Author Organization [facility] Address [address] [place] [address] Care Team Providers Care Filler Wiper Name Role Phone JANETH PAVON Primary Care Provider Assessment No assessment recorded. Plan of Treatment Reminders Order Date Submit Date Provider Last Modified By Organization Details Last Modified Time Details Appointments ANY 11:00AM Janeth Pavon PA-C Not available Not available Not available ANY 09:30AM Janeth Pavon PA-C Not available Not available Not available Lab drug screen, urine reshma In-Office Order, Internal Use Only DO Not Attach Compendium DO Not Attach Compendium, Do Not Delete/merge, [id number] 09/27/2024 12:46:50 Referral None recorde d. Procedures None recorde d. Surgeries None recorde d. Imaging None recorde d. Medication Orders None recorde d. Patient TargetsNo targets recorded. Patient InstructionsNo instructions recorded. Reason for Referral None Reported. Results Created Date Observation Date Name Description Value Unit Range Abnormal Flag Note LastModifiedBy Organization Detail LastModifiedTime 09/14/1909/12/2024 XR, lumba r spine No observ ation record ed. [facility] [address] [place], [address], 09/13/2024 10:31:20 Result Notes None recorded. Problems Name Problem SNOMED Code Status Onset Date Resolution Date Notes Provider Name and Address Organization Details Recorded Time Diabetes mellitus 58869706 Active 2018 Amanda Amin MA [facility] 10:51:15 Liver finding 693690520 Active 2018 [facility] [place], [place] - [facility] 1 10:51:15 Hyperglycem ia due to type 2 diabetes mellitus 4091109376622 09 Active [facility] [place] [facility] 4 09:09:59 Type 2 diabetes mellitus in obese 65060545 Active [facility] [place] [facility] 1 10:51:15 Bacteremia 4034952 Active [facility] [place] [facility] 1 10:51:15 Gastroesoph ageal reflux disease 199025811 Active [facility] [place] [facility] 10:51:15 Abscess 589460125 [place] [facility] [place] [facility] 10:51:15 Backache 990015490 [place] [facility] [place] [facility] 10:51:15 Hepatic failure 82654233 Active [facility] [place] [facility] 10:51:15 [...] Name and Address Organization Details Recorded Time 427671 Product containin g penicilli n (product) medicatio n Not available Not available Not available 12/16/2017 14485 8001 SNOMED [facility] [place], [place] [facility] 8 11:58:06 035572 Substance with sulfonami de structure and antibacte rial mechanism of action (substanc e) medicatio n Not available Not available Not available 12/16/2017 59910 8003 SNOMED [facility] [place], [place] [facility] 8 11:58:12 804934 Nexium medicatio n Not available Not available Not available 12/16/2017 52414 9 RxNorm [facility] [place], [facility] 8 11:58:19 534221 erythromy roxana medicatio n Not available Not available Not available 12/16/2017 4053 RxNorm [facility] [place], [facility] 8 11:58:25 401586 Iodinated contrast media (substanc e) medicatio n Not available Not available Not available 12/16/2017 51891 2004 SNOMED [facility] [place], [facility] 8 11:58:35 604325 ciproflox acin medicatio n Not available Not available Not available 12/16/2017 2551 RxNorm [facility] [place], [facility] 8 11:58:48 345065 Azactam medicatio n Not available Not available Not available 12/16/2017 56566 1 RxNorm [facility] [place], [facility] 8 11:58:56 335677 aztreonam medicatio n Not available Not available Not available 12/16/2017 1272 RxNorm [facility] [place], [place] [facility] 8 11:59:03 135454 octreotid e Not available Not available Not available Not available 12/16/2017 7617 RxNorm [facility] [place], [facility] 8 11:59:10 413076 duloxetin e medicatio n Not available Not available Not available 12/16/2017 39801 RxNorm [facility] [place] 8 11:59:19 786078 oxycodone medicatio n other Not available Not available 03/19/2021 7804 RxNorm CEDRICKA Mane Mathur [facility] [place] [facility] 16:02:30 Medications Name Sig Start Date Stop Date Status Note LastModified by Organization Details LastModified Time Prescripti on - Change 08/21 completed Not Available Not Available Not Available cyclobenza carisa 10 mg tablet active Not Available Not Available No t Available metformin 500 mg tablet TAKE 2 TABLETS BY MOUTH DAILY 07/25 completed Not Available Not Available Not Available gabapentin 600 mg tablet 11/16 completed Not Available Not Available Not Available clindamyci n HCl 300 mg capsule Take 1 capsule every 6 hours by oral route for 10 days. completed Not Available Not Available Not Available Humulin R U-500 (Concentra manny) Insulin 500 unit/mL subcutaneo us soln Inject 200 units 4 times a day by subcutane ous route. 11/16 completed Not Available Not Available Not Available alprazolam 1 mg tablet TAKE ONE TABLET BY MOUTH 3 TIMES A DAY 2024 active Not Available Not Available Not Avai lable Lidocaine Viscous 2 % mucosal solution 06/28 completed Not Available Not Available Not Available ceftriaxon e 2 gram intravenou s solution Inject 2 g every day by intraveno us route for 27 days. 07/25 completed Not Available Not Available Not Available benzonatat e 200 mg capsule Take 1 capsule 3 times a day by oral route as needed for 30 days. 02/24 completed Not Available Not Available Not Available valacyclov ir 1 gram tablet Take 1 tablet every 12 hours by oral route for 7 days. 08/21 completed Not Available Not Available Not Available hydrocodon e 5 mg-acetami nophen 325 mg tablet 06/26 completed Not Available Not Available Not Available ondansetro n HCl 8 mg tablet 02/09 completed Not Available Not Available Not Available ondansetro n HCl 4 mg tablet TAKE ONE TABLET BY MOUTH TWICE A DAY NEEDED 2024 active Not Available Not Available Not Avai lable clindamyci n HCl 150 mg capsule Take 1 capsule every 6 hours by oral route for 10 days. 05/13 completed Not Available Not Available Not Available acetaminop hen 300 mg-codeine 30 mg tablet TAKE ONE TABLET BY MOUTH EVERY 8 HOURS NEEDEDP T NEEDS TO CALL OFFICE AND SCHEDULE APPT 08/05 completed Not Available Not Available Not Available prochlorpe razine maleate 10 mg tablet Take 1 tablet 3 times a day by oral route for 30 days. 11/16 completed Not Available Not Available Not Available hydrocodon e 10 mg-acetami nophen 325 mg tablet active Not Available Not Available No t Available peg-electr olyte solution 420 gram oral solution completed Not Available Not Available Not Available doxycyclin e monohydrat e 100 mg tablet 05/13 completed Not Available Not Available Not Available tramadol 50 mg tablet TAKE ONE TABLET BY MOUTH THREE TIMES A DAY NEEDED 2022 completed Not Available Not Available Not Available carvedilol 3.125 mg tablet 01/13 completed Not Available Not Available Not Available ketorolac 10 mg tablet 02/24 completed Not Available Not Available Not Available oxycodone- acetaminop hen 5 mg-325 mg tablet 06/26 completed Not Available Not Available Not Available alprazolam 0.5 mg tablet TAKE ONE TABLET UP TO TWICE A DAY NEEDED FOR SEVERE ANXIETY 06/13 completed Not Available Not Available Not Available famotidine 20 mg tablet TAKE ONE TABLET BY MOUTH TWICE A DAY 2024 active Not Available Not Available Not Avai lable amitriptyl ine 25 mg tablet Take 1 tablet every day by oral route at bedtime for 30 days. 06/26 completed Not Available Not Available Not Available methocarba mol 750 mg tablet 01/13 completed Not Available Not Available Not Available clindamyci n 1 % topical gel APPLY A THIN LAYER TO THE affected area(s) by topical route 2 times per day 05/28 completed Not Available Not Available Not Available trazodone 100 mg tablet TAKE ONE TABLET BY MOUTH TWICE A DAY active Not Available Not Available No t Available dicyclomin e 20 mg tablet 02/09 completed Not Available Not Available Not Available TimeLabToRue89 Ultra Test strips USE FOR TESTING BEFORE EACH MEAL AND AT BEDTIME 09/20 completed Not Available Not Available Not Available hydrocodon e 7.5 mg-acetami nophen 325 mg tablet 08/04 completed Not Available Not Available Not Available ferrous sulfate 325 mg (65 mg iron) tablet 11/15 completed Not Available Not Available Not Available metformin 1,000 mg tablet Take 2 tablets every day by oral route at bedtime. 01/24 completed Not Available Not Available Not Available triamcinol one acetonide 0.1 % topical ointment 06/28 completed [...] completed Not Available Not Available Not Available indomethac in 50 mg capsule Take 1 capsule 3 times a day by oral route for 7 days. 05/28 completed Not Available Not Available Not Available omeprazole 20 mg capsule,de layed release TAKE 1 CAPSULE BY MOUTH TWICE A DAY 02/24 completed Not Available Not Available Not Available hydroxyzin e HCl 25 mg tablet TAKE ONE TABLET BY MOUTH 4 TIMES A DAY 04/06 completed Not Available Not Available Not Available codeine 10 mg-guaifen esin 100 mg/5 mL oral liquid 10 ml q 6 hours prn completed Not Available Not Available Not Available hydrochlor othiazide 25 mg tablet TAKE ONE TABLET BY MOUTH DAILY 09/20 completed Not Available Not Available Not Available ergocalcif rich (vitamin D2) 1,250 mcg (50,000 unit) capsule TAKE 1 CAPSULE BY MOUTH WEEKLY FOR 12 WEEKS ONLY 05/28 completed Not Available Not Available Not Available albuterol sulfate HFA 90 mcg/actuat ion aerosol inhaler INHALE 2 PUFFS BY MOUTH EVERY 4 HOURS NEEDED 2024 active Not Available Not Available Not Avai lable ketoconazo le 2 % topical cream APPLY TO THE AFFECTED AREA(S) BY TOPICAL ROUTE ONCE DAILY 02/24 completed Not Available Not Available Not Available indomethac in ER 75 mg capsule,ex tended release 04/06 completed Not Available Not Available Not Available ondansetro n 4 mg disintegra ting tablet 09/16 completed Not Available Not Available Not Available metformin ER 500 mg tablet,ext ended release 24 hr 03/03 completed Not Available Not Available Not Available Enulose 10 gram/15 mL oral solution TAKE 30ML. BY MOUTH TWICE A DAY 2023 active Not Available Not Available Not Avai lable naproxen 500 mg tablet 06/28 completed Not Available Not Available Not Available metoclopra mide 10 mg tablet 02/09 completed Not Available Not Available Not Available oxycodone 5 mg tablet 02/11 completed Not Available Not Available Not Available cyclobenza carisa 5 mg tablet 11/16 completed Not Available Not Available Not Available alfuzosin ER 10 mg tablet,ext ended release 24 hr 02/09 completed Not Available Not Available Not Available rifaximin 200 mg tablet Take 1 tablet twice a day by oral route. 02/14 completed Not Available Not Available Not Available nitrofuran toin monohydrat e/macrocry stals 100 mg capsule Take 1 capsule twice a day by oral route for 7 days. 06/26 completed Not Available Not Available Not Available duloxetine 30 mg capsule,de layed release 01/13 completed Not Available Not Available Not Available pregabalin 75 mg capsule 05/14 completed Not Available Not Available Not Available pregabalin 150 mg capsule 300 at night active Not Available Not Available No t Available pregabalin 200 mg capsule once during the day active Not Available Not Available No t Available Hydrocodon e 10 mg 4x a day 02/11 completed Not Available Not Available Not Available Lantus Solostar U-100 Insulin 100 unit/mL (3 mL) subcutaneo us pen INJECT 35 UNITS SUBCUTANE OUSLY IN THE MORNING AND 50 UNITS IN THE EVENING 2024 active Not Available Not Available Not Avai lable Humalog KwikPen (U-100) Insulin 100 unit/mL subcutaneo us INJECT 22 UNITS SUBCUTANE OUSLY WITH EACH MEAL ISF: 15>150 DO NOT TAKE IF YOU DO NOT EAT A MEAL MAX DAILY DOSE OF 150 2024 active Not Available Not Available Not Avai lable Eucerin Original lotion Apply 1 applicati on [...] Not Available OneTouch Delica Lancets 30 gauge 09/20 completed Not Available Not Available Not Available Victoza 3-Anatoliy 0.6 mg/0.1 mL (18 mg/3 mL) subcutaneo us pen injector INJECT 1.8 MG UNDER THE SKIN DAILY 05/28 completed Not Available Not Available Not Available Trulicity 0.75 mg/0.5 mL subcutaneo us pen injector INJECT 0.75MG SUBCUTANE OUSLY WEEKLY FOR FOUR WEEKS THEN INCREASE TO 1.5MG ONCE A WEEK DIRECTED 06/28 completed Not Available Not Available Not Available naloxone 4 mg/actuati on nasal spray active Not Available Not Available Not Available Humulin R U-500 (Conc) Insulin Kwikpen 500 unit/mL (3 mL) subcutaneo us INJECT 150 UNITS SUBCUTANE OUSLY 4 TIMES A DAY active 200 Units BID Not Available Not Available Not Available Humulin R U-500 (Conc) Kwikpen 200 [...] mg or 0.5 mg (2 mg/1.5 mL) subcutaneo us pen injector Inject every week by subcutane ous route. 02/24 completed Not Available Not Available Not Available OneTouch Ultra Blue Test Strip USE 1 STRIP 3 TIMES DAILY 08/21 completed Not Available Not Available Not Available OneTouch Ultra2 Meter 09/20 completed Not Available Not Available Not Available OneTouch Delica Plus Lancet 33 gauge 09/20 completed Not Available Not Available Not Available Lagevrio 200 mg capsule (EUA) TAKE 4 CAPSULES BY MOUTH EVERY 12 HOURS 05/28 completed Not Available Not Available Not Available Dexcom G7 Sensor device CHANGE SENSOR EVERY 10 DAYS active Not Available Not Available No t Available Vitals Date Recorded Systolic And Diastolic Provider Name and Address Organization Details Last Updated DateTime 09/27/2024 132/80 mm[Hg] Janeth Pavon PA-C Attn: [place], [address], [facility] 09/27/2024 12:35:01 Date Recorded Body height Body mass index (BMI) Body weight Oxygen saturation Oxygen saturation in Arterial blood by Pulse oximetry Heart rate Provider Name and Address Organization Details Last Updated DateTime 171.45 cm 34.8 kg/m2 798107. 38 g 97 % 97 % 80 /min Ana Rosa Alexandra [facility] 12:17:19 Social History Question Answer Notes LastModified by Organizat ion Details LastModified Time Tobacco Smoking Status Former Smoker [facility] [place], [facility] 12/16/2017 12:02:47 What Is Your Level Of Caffeine Consumption? None Pt Has Stopped Caffeine Was Drinking Diet Soda Information not available 09/27/2024 How Much Tobacco Do You Chew? None [...] Date Of Your Most Recent Tobacco Screening? 09/27/2024 Information not available 09/27/2024 What Is Your Relationship Status? Information not [...] What Date Was Tobacco Cessation Counseling Provided? 09/27/2024 Information not available 09/27/2024 Sex: Unknown Functional Status Question Answer Note LastModified by Organizat ion Details LastModified Time Do you use any illicit or recreational drugs? No pain doctor recommonded getting the medical yasmani card tried thc pen once and does not want to use it again Information not available 09/27/2024 Do you or have you ever used [...] anxious, or unable to sleep at night)? [id number] [email or web address] Information not available 08/21/2021 Family History [...] Skin Problems N Anemia N Heart Attack ([place]) N Anxiety Disorder Y Diabetes Y Muscle, [...] mcg/0.3 mL dose 12/08/2020 completed Not Available [facility] 4 10:49:05 COVID-19, mRNA, LNP-S, PF, 30 mcg/0.3 mL dose 12/29/2020 completed Not Available [facility] 4 10:49:05 Hep A-Hep B 09/10/2015 completed [facility] [place], [place] [facility] 07/20/2023 09:11:13 Past Encounters Encounter ID Performer Location Encounter Start Date Encounter Closed Date Diagnosis/Indication Diagnosis SNOMED-CT Code Diagnosis ICD10 Code Diagnosis Note [id number] Kris Mckeon MD [facility] [address] [place] [address] 09/20/2024 09:35:33 09/21/2024 11:09:53 Uncontrolled type 2 diabetes mellitus 567965187 E11.65 patient to follow up with his endo re U500 History of epilepsy 1614 16540 Z86.69 Obese class I 3618639159 00691 E66.055 [id number] Kris Mckeon MD [facility] [address] [place] [address] 09/27/2024 11:47:31 09/27/2024 12:47:41 Therapeutic drug monitoring assay 50094226 Z51.81 [id number] Kris Mckeon MD [facility] [address] [place] [address] 09/27/2024 11:51:20 09/27/2024 12:36:14 Cervical radiculopathy 30694981 M54.12 Uncontroll ed type 2 diabetes mellitus 525956990 E11.65 Health Concerns Section Related Observation LastModified by Organization Detai ls LastModified Time None Recorded Concern Status LastModified by Organization Details LastModified Time None Recorded Payers Encounter Date Sequence Insurance Name Policy Number Policy Cordero Covered Member ID Cordero Member ID Guarantor Name 09/27/2024 1 [employer] OF [place] ON OR AFTER 04/03/2020 (MEDICAID REPLACEMENT - HMO) Camilo Curry [id number] Camilo Curry Notes Date Note Type Note Provider Name and Address Organization Details Recorded Time 09/27/2024 text/html was walking backwards with a rolling trash can..tripped and fell backwards and twisted forward to land on left shoulder..now has tingling in left last two fingers..also when he landed he injured his ribs..also says he and his endo no longer get along and wants a new one. Janeth Pavon PA-C Attn: Accounting,[address] [facility], [place], [address], [place] [id number] 09/27/2024 12:36:11
--- OUTSIDE RECORDS SUMMARY | 2024-09-27 14:05 | XMS_ITS | Encounter Summary ---
Author Organization [facility] Address [address] [place] [address] Care Team Providers Care Technology Assistant Name Role Phone Braydon Pavon Primary Care Provider [phone] Nikolay Lancaster MD Unavailable [phone] Simon Lundberg MD Primary Care Provider [phone] Nacho Rodriguez MD Unavailable [phone] Elian Gross MD Unavailable Braydon Pavon Primary Care Provider Encounter Details Date Type Department Care Team (Late st Contact Info) Description 09/14/2020 Telephone [facility] Imaging [address] [place], [place] [id number] Trice Aldana, RT Social History Tobacco Use [...] file 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 Gender Identity Male 10/29/2020 12:37 PM CDT Sexual Orientation Straight 10/29/2020 12 :37 PM CDT documented as of this encounter Plan of Treatment Not on file documented as of this encounter Visit Diagnoses Not on filedocumented in this encounter Care Teams Technology Assistant Relationship Specialty Start Date End Date Braydon Pavon PA [address] [place] [address] PCP - General Family Practice 05/09/20 05/19/21 Simon Lundberg MD [address] [place] [address] PCP - General Family Medicine 05/20/21 08/22/21 Braydon Pavon PA [address] [place] [address] PCP - General 08/23/21 Nikolay Lancaster MD [address] [place] [address] 05/09/20 05/19/21 [place] [address] [facility] [[email or web address] [address] [address] Consulting Physician Endocrinology 05/20/21 [place] [address] [address] [facility] [[email or web address] [address] [address] Consulting Physician Internal Medicine 05/20/21 documented as of this encounter
--- OUTSIDE RECORDS SUMMARY | 2024-09-27 14:05 | XMS_ITS | Encounter Summary ---
Author Organization [facility] Address [address] [place] [address] Care Team Providers Care Applications Specialist Name Role Phone Braydon Pavon Primary Care Provider [phone] Nikolay Lancaster MD Unavailable [phone] Simon Lundberg MD Primary Care Provider [phone] Nacho Rodriguez MD Unavailable [phone] Elian Gross MD Unavailable Braydon Pavon Primary Care Provider [phone] Encounter Details Date Type Department Care Team (Late st Contact Info) Description 10/05/2020 Telephone [facility] Imaging [address] [place] [id number] Trice Aldana, RT Social History Tobacco Use [...] on file 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 Gender Identity Male 10/29/2020 12:37 PM CDT Sexual Orientation Straight 10/29/2020 12 :37 PM CDT documented as of this encounter Plan of Treatment Not on file documented as of this encounter Visit Diagnoses Not on filedocumented in this encounter Care Teams Applications Specialist Relationship Specialty Start Date End Date Braydon Pavon PA [address] [place] [address] PCP - General Family Practice 05/09/20 05/19/21 Simon Lundberg MD [address] [place] [address] PCP - General Family Medicine 05/20/21 08/22/21 Braydon Pavon PA [address] [place] [address] PCP - General 08/23/21 Nikolay Lancaster MD [address] [place] [address] 05/09/20 05/19/21 [place] [id number] [address] [facility] [address] [address] Consulting Physician Endocrinology 05/20/21 [place] [id number] [address] [facility] [address] [address] Consulting Physician Internal Medicine 05/20/21 documented as of this encounter
--- OUTSIDE RECORDS SUMMARY | 2024-09-27 14:05 | XMS_ITS | Clinical Summary ---
Author Organization [facility] Address [address] Valenzuelan: Epic Prelude ADT [place] [address] Care Team Providers Care Base Draw Operator Name Role Phone Carlos Mcdonnell DO Primary Care Provider Unava ilable Allergies No known active allergies Medications No known medications Encounters Date Type Department Care Team Description 06/30/2024 8:59 PM GAME AGENT - 06/30/2024 11:11 PM GAME AGENT Emergency [facility] [address] [place] [address] Gerry Caal DO Encounter for [...] on file Legal Sex Male 6:23 AM GAME AGENT Gender Identity Not on file Sexual Orientation Not on file Last Filed Vital Signs Vital Sign Reading Time Taken Comments Blood Pressure 147/78 06/30/2024 10:10 PM GAME AGENT Pulse 89 06/30/2024 10:55 PM GAME AGENT Temperature 36.4 C (97.5 F) 06/30/2024 5:45 PM GAME AGENT Respiratory Rate 13 06/30/2024 10:55 PM GAME AGENT Oxygen Saturation 96% 06/30/2024 10:55 PM GAME AGENT Inhaled Oxygen Concentration - - Weight - [...] Diagnosis Comments LIPASE Stat 06/30/2024 9:40 PM GAME AGENT COMPREHENSIVE METABOLIC PANEL Stat 06/30/2024 9:40 PM GAME AGENT VERIFICATION BLOOD GROUP Stat 06/30/2024 9:39 PM GAME AGENT Encounter for blood typing PROTIME-INR Stat 06/30/2024 9:39 PM GAME AGENT EXTRA TUBE (BLUE) Stat 06/30/2024 9:3 9 PM GAME AGENT EXTRA TUBE Stat 06/30/2024 9:39 PM GAME AGENT TYPE AND SCREEN Stat 06/30/2024 6:10 PM GAME AGENT CBC WITH DIFFERENTIAL Stat 06/30/2024 6:10 PM GAME AGENT from Last 3 Months Results * LIPASE (06/30/2024 9:40 PM GAME AGENT) Pathologist [facility] LIPASE 17 13 - 60 U/L 06/30/2024 10:40 PM GAME AGENT [facility] Blood Venipuncture / Unknown 06/30/2024 9:40 PM GAME AGENT 06/30/2024 10:08 PM GAME AGENT Gerry Caal DO CHEMISTRY ORDERABLES Final Resu lt [facility] CLIA# [id number] [place] [address] * (ABNORMAL) COMPREHENSIVE METABOLIC PANEL (06/30/2024 9:40 PM GAME AGENT) Pathologist [facility] SODIUM 137 136 - 145 mmol/L 06/30/2024 10:47 PM [facility] POTASSIUM 4.0 3.4 - 5.1 mmol/L 06/30/2024 10:47 PM [facility] CHLORIDE 98 98 - 107 mmol/L 06/30/2024 10:47 PM [facility] CO2 25 22 - 29 mmol/L 06/30/2024 10:47 PM [facility] CALCIUM 9.8 8.6 - 10.4 mg/dL 06/30/2024 10:47 PM [facility] BUN 17 6 - 20 mg/dL 06/30/2024 10:47 PM [facility] CREATININE 0.78 0.67 - 1.17 mg/dL 06/30/2024 10:47 PM [facility] GLUCOSE 450(HH) 74 - 99 mg/dL 06/30/2024 10:47 PM [facility] TOTAL PROTEIN 7.0 6.3 - 8.7 g/dL 06/30/2024 10:47 PM [facility] ALBUMIN 3.8 3.5 - 5.2 [...] Blood Venipuncture / Unknown 06/30/2024 9:40 PM GAME AGENT 06/30/2024 10:08 PM GAME AGENT Gerry Caal DO CHEMISTRY ORDERABLES Final Resu lt Performing Organization Address [facility]/ZIP Co de Phone Number [facility] CLIA# [id number] [place] [address] * EXTRA TUBE (BLUE) (06/30/2024 9:39 PM GAME AGENT) Blood Venipuncture / Unknown 06/30/2024 9:39 PM GAME AGENT 06/30/2024 10:57 PM GAME AGENT Gerry Caal DO HEMATOLOGY ORDERABLES Final Res ult [facility] CLIA# [id number] [place] [address] * VERIFICATION BLOOD GROUP (06/30/2024 9:39 PM GAME AGENT) ABO GROUP A 06/30/2024 11:11 PM GAME AGENT [facility] RH (D) TYPE Positive 06/30/2024 11:11 PM GAME AGENT [facility] Blood Venipuncture / Unknown 06/30/2024 9:39 PM GAME AGENT 06/30/2024 10:07 PM GAME AGENT Carlos Mcdonnell DO BLOOD BANK ORDERABLES Final Result [facility]# [id number] [address] [place] [address] * (ABNORMAL) PROTIME-INR (06/30/2024 9:39 PM GAME AGENT) Pathologist [facility] Department PROTIME 15.0(H) 11.5 - 14.7 Seconds 06/30/2024 11:05 PM GAME AGENT [facility] INR 1.2(H) 0.9 - 1.1 06/30/2024 11:05 PM GAME AGENT [facility] Blood Venipuncture / Unknown 06/30/2024 9:39 PM GAME AGENT 06/30/2024 10:57 PM GAME AGENT Gerry Caal DO HEMATOLOGY ORDERABLES Final Res ult [facility] CLIA# [id number] [address] [place] [address] * (ABNORMAL) CBC WITH DIFFERENTIAL (06/30/2024 6:10 PM GAME AGENT) WBC 5.3 4.0 - 9.8 K/uL 06/30/2024 6:48 PM GAME AGENT [facility] [place] [facility] RBC 5.86(H) 4.50 - 5.40 [...] 0.70 - 4.50 K/uL 06/30/2024 6:48 PM GAME AGENT [facility] MONOCYTE ABSOLUTE 0.47 0.10 - 1.30 K/uL 06/30/2024 6:48 PM GAME AGENT [facility] EOSINOPHIL ABSOLUTE 0.18 0.00 - 0.70 K/uL 06/30/2024 6:48 PM GAME AGENT [facility] BASOPHILS ABSOLUTE 0.07 0.00 - 0.20 K/uL 06/30/2024 6:48 PM GAME AGENT [facility] IMMATURE GRANULOCYTES ABSOLUTE 0.03 0.00 - 0.03 K/uL 06/30/2024 6:48 PM GAME AGENT [facility] Blood Venipuncture / Unknown 06/30/2024 6:10 PM GAME AGENT 06/30/2024 6:40 PM GAME AGENT Gerry Caal DO HEMATOLOGY ORDERABLES Final Res ult [facility] CLIA# [id number] [place] [address] * TYPE AND SCREEN (06/30/2024 6:10 PM GAME AGENT) ABO GROUP A 06/30/2024 7:40 PM GAME AGENT [facility] RH (D) TYPE Positive 06/30/2024 7:40 PM GAME AGENT [facility] ANTIBODY SCREEN Negative 06/30/2024 7:40 PM GAME AGENT [facility] Blood Venipuncture / Unknown 06/30/2024 6:10 PM GAME AGENT 06/30/2024 6:31 PM GAME AGENT Gerry Caal DO BLOOD BANK ORDERABLES Edited Re sult - Final [facility] CLIA# [id number] [address] [place] [address] from Last 3 Months Insurance [facility] MEDICAID Care Teams Base Draw Operator Relationship Specialty Start Date End Date Carlos Mcdonnell DO PCP - General 11/18/07
--- OUTSIDE RECORDS SUMMARY | 2024-09-27 14:05 | XMS_ITS | Continuity of Care Document ---
Author Organization [facility] Address [address] [place] [place] [address] Phone Care Team Providers Care Internal Controls Manager Name Role Phone Roosevelt Mcgee MD Unavailable [...] route every day 5 MG - Active Hunter 10 mg-325 mg tablet take 1 tablet [...] Copied on Encounter OFFICE/OUTPA TIENT VISIT, EST [facility], [address], [place], [id number], [place] tel:[phone] [facility] anxiety1 (chief complaint) DM (chief complaint) liver cirrhosis (chief complaint) GERD1 (chief complaint) chronic pain (chief complaint) Type 2 diabetes mellitus without complicationsGenera lized Anxiety DisorderOther cirrhosis of liverChronic pain syndrome 2-201 [address] [place], [place], [id number] , . tel:[phone] Referring Provider: Roosevelt Mcgee [address], [place], [place], [id number]. tel:[phone] Family History Family Member Type Diagnosis Age [...] takes lantus, tradejnta, humalog. His BG is [id number]. Pt sees endo for his DM. Pt [...] Mental Status Date Cognitive Assessment Orientation - [place] ed to time, place, person, situation.
--- OUTSIDE RECORDS SUMMARY | 2024-09-27 14:06 | XMS_ITS | Encounter Summary ---
Author Organization [facility] Address [facility] [facility] [place] [address] Care Team Providers Care Caponizer Name Role Phone Braydon Pavon Primary Care Provider [phone] Nikolay Lancaster MD Primary Care Provider [phone] Braydon Pavon Primary Care Provider [phone] Reason for Visit * Reason Onset Date Comments MEDICATION REFILL 09/08/2018 Encounter Details Date Type Department Care Team (Late st Contact Info) Description 09/08/2018 Refill [facility] [address] [place] [address] Edmond Choi MD [address] [facility] [address] [facility] [place] [address] MEDICATION REFILL Social History Tobacco Use Types Packs/Day Years Used Date Smoking Tobacco: Former Smokeless Tobacco: Never Alcohol Use Standard Drinks/Week Comments No 0 (1 standard drink = 0.6 oz pur e alcohol) Sex and Gender Information Value Date Recorded Sex Assigned at Not on file Legal Sex Male 8:18 AM KOHINOOR OPERATOR Gender Identity Not on file Sexual Orientation Not on file documented as of this encounter Plan of Treatment Not on file documented as of this encounter Visit Diagnoses Not on filedocumented in this encounter Additional Health Concerns Infection Onset Date Last Indicated Resolved Time COVID-19 Under Investigation 06/08/2024 06/08/2024 06/08/2024 4:31 PM KOHINOOR OPERATOR Influenza A or B Comment:OSH result 06/08/2024 06/09/2024 06/15/2024 4:[address] documented as of this encounter Care Teams Caponizer Relationship Specialty Start Date End Date Braydon Pavon PA [address] [place] [address] PCP - General Physician Jaw Skinner 05/19/18 10/03/18 Nikolay Lancaster MD [address] [place] [id number] PCP - General 10/04/18 07/13/23 Braydon Pavon PA [address] [place] [address] PCP - General Physician Jaw Skinner 07/14/23 documented as of this encounter
--- OUTSIDE RECORDS SUMMARY | 2024-09-27 14:06 | XMS_ITS | Continuity of Care Document ---
Author Organization [facility] Address [address] [place] [address] Care Team Providers Care Rubber Mill Operator Name Role Phone JANETH PAVON Primary Care Provider [phone] Assessment No assessment recorded. Plan of Treatment Reminders Order Date Submit Date Provider Last Modified By Organization Details Last Modified Time Details Appointments ANY 15 2024 11:00A Olivia Pavon PA-C Not available Not available Not available ANY 2024 09:30A Olivia Pavon PA-C Not available Not available Not available Lab None recorded. Referral None recorded. Procedures None recorded. Surgeries None recorded. Imaging XR, cervical spine 2024 025 [facility] (Registration ), [address] [place], [address], 09/27/2024 12:50:36 Medication Orders None recorded. Patient TargetsNo targets recorded. Patient Instructions Encounter Date Encounter Id Patient Instructions Last Modified By Organization Details Last Modified Time 09/27/2024 [id number] type 2 diabetes: care instructions [email or web address] Not available 09/27/2024 12:35:55 Reason for Referral None Reported. Results Created Date Observation Date Name Description Value Unit Range Abnormal Flag Note LastModifiedBy Organization Detail LastModifiedTime 09/14/19 25 09/12/2024 XR, lumba r spine No observ ation [facility] ed. [email or web address] [address] [place], [address], 09/13/2024 10:31:20 Result Notes None recorded. Problems Name Problem SNOMED Code Status Onset Date Resolution Date Notes Provider Name and Address Organization Details Recorded Time Diabetes mellitus 73304621 Active 2018 [facility] [place], [place] [facility] 1 10:51:15 Liver finding 777457113 Active 2018 [facility] [place] [facility] 1 10:51:15 Hyperglycem ia due to type 2 diabetes mellitus 0584472215257 09 Active [facility] [place] [facility] 4 09:09:59 Type 2 diabetes mellitus in obese 88142737 Active [facility] [place] [facility] 1 10:51:15 Bacteremia 6738628 Active [facility] [place] [facility] 10:51:15 Gastroesoph ageal reflux disease 946440820 Active [facility] [place] [facility] 10:51:15 Abscess 859564817 Active [facility] [place] [facility] 10:51:15 Backache 055789675 Active [facility] [place] [facility] 1 10:51:15 Hepatic failure 29894817 Active [facility] [place] [facility] 10:51:15 Problem Notes None recorded. Procedures Surgical History Date Name Laterality Status Provider Name and Address Organization Details Recorded Time 6 colonoscopy completed mAanda Amin [place] - [facility] 11/15/2021 15:39:15 Imaging Results None recorded. Procedure Notes None recorded. Medical Equipment None Reported. Allergies Allergen ID Allergen Name Allergen Category Reaction Reaction Severity Criticality Documentation Date Start Date Code Code System Note Provider Name and Address Organization Details Recorded Time 339938 Product containin g penicilli n (product) medicatio n Not available Not available Not available 12/16/2017 27247 8001 SNOMED [facility] [place], [place] - [facility] 8 11:58:06 210752 Substance with sulfonami de structure and antibacte rial mechanism of action (substanc e) medicatio n Not available Not available Not available 12/16/2017 58088 8003 SNOMED [facility] [place], [facility] 8 11:58:12 161142 Nexium medicatio n Not available Not available Not available 12/16/2017 44928 9 RxNorm [facility] [place], [facility] 8 11:58:19 137599 erythromy roxana medicatio n Not available Not available Not available 12/16/2017 4053 RxNorm [facility] [place], [facility] 8 11:58:25 970670 Iodinated contrast media (substanc e) medicatio n Not available Not available Not available 12/16/2017 62704 2004 SNOMED [facility] [place], [facility] 8 11:58:35 252950 ciproflox acin medicatio n Not available Not available Not available 12/16/2017 2551 RxNorm [facility] [place], [facility] 8 11:58:48 449732 Azactam medicatio n Not available Not available Not available 12/16/2017 63369 1 RxNorm [facility] [place], [facility] 8 11:58:56 655756 aztreonam medicatio n Not available Not available Not available 12/16/2017 1272 RxNorm [facility] [place], [facility] 8 11:59:03 538013 octreotid e Not available Not available Not available Not available 12/16/2017 7617 RxNorm [facility] [place], [facility] 8 11:59:10 705020 duloxetin e medicatio n Not available Not available Not available 12/16/2017 68166 RxNorm [facility] [place], [facility] 8 11:59:19 495173 oxycodone medicatio n other Not available Not available 03/19/2021 7804 RxNorm AMY AminBEBO, [facility] 1 16:02:30 Medications Name Sig Start [...] completed Not Available Not Available Not Available QuartixTouch Ultra Test strips USE FOR TESTING BEFORE [...] 09/27/2024 132/80 mm[Hg] Janeth Pavon PA-C Attn: Accounting,[address] [facility], [place], [address], [facility] 09/27/2024 12:35:01 Date Recorded Body height Body mass index (BMI) Body weight Oxygen saturation Oxygen saturation in Arterial blood by Pulse oximetry Heart rate Provider Name and Address Organization Details Last Updated DateTime 171.45 cm 34.8 kg/m2 373851. 38 g 97 % 97 % 80 /min Ana Rosa Alexandra [facility] 12:17:19 Social History Question Answer Notes LastModified by Organizat ion Details LastModified Time Tobacco Smoking Status Former Smoker [facility] [place], [facility] 12/16/2017 12:02:47 What Is Your [...] anxious, or unable to sleep at night)? [id number] [email or web address] Information not available 08/21/2021 Family History [...] Skin Problems N Anemia N Heart Attack ([place]) N Anxiety Disorder Y Diabetes Y Muscle, [...] dose 12/08/2020 completed Not [facility] 4 10:49:05 COVID-19, mRNA, LNP-S, PF, 30 mcg/0.3 mL dose 12/29/2020 completed Not [facility] 4 10:49:05 Hep A-Hep B 09/10/2015 completed [facility] [place], [place] - [facility] 07/20/2023 09:11:13 Past Encounters Encounter ID Performer Location Encounter Start Date Encounter Closed Date Diagnosis/Indication Diagnosis SNOMED-CT Code Diagnosis ICD10 Code Diagnosis Note [id number] Kris Mckeon MD [facility] [address] [place] [address] 09/20/2024 09:35:33 09/21/2024 11:09:53 Uncontrolled type 2 diabetes mellitus 337225016 E11.65 patient to follow up with his endo re U500 History of epilepsy 1614 25599 Z86.69 Obese class I 5391870796 77047 E66.333 [id number] Kris Mckeon MD [facility] [address] [place] [address] 09/27/2024 11:47:31 09/27/2024 12:47:41 Therapeutic drug monitoring assay 02644833 Z51.81 [id number] Kris Mckeon MD [facility] [address] [place] [address] 09/27/2024 11:51:20 09/27/2024 12:36:14 Cervical radiculopathy 88130972 M54.12 Uncontroll ed type 2 diabetes mellitus 197144841 E11.65 Health Concerns Section Related Observation LastModified by Organization Detai ls LastModified Time None Recorded Concern Status LastModified by Organization Details LastModified Time None Recorded Payers Encounter Date Sequence Insurance Name Policy Number Policy Cordero Covered Member ID Cordero Member ID Guarantor Name 09/27/2024 PENDING Camilo Curry [id number] Camilo Curry Notes Date Note Type Note [...] new one. Janeth Pavon PA-C Attn: Accounting,[address] [facility], [place], [address], [facility] 09/27/2024 12:36:11
--- OUTSIDE RECORDS SUMMARY | 2024-09-27 14:06 | XMS_ITS | Data Portability ---
Author Organization [facility] Address [address] [place] [address] Care Team Providers Care Corn Lab Technician Name Role Phone JANETH PAVON Primary Care Provider Assessment No assessment recorded. Plan of Treatment Reminders Order Date Submit Date Provider Last Modified By Organization Details Last Modified Time Details Appointments ANY 2024 11:00A Olivia Pavon PA-C Not available Not available Not available ANY 2024 09:30A Olivia Pavon PA-C Not available Not available Not available Lab drug screen, urine 2024 025 reshma In-Office Order, Internal Use Only DO Not Attach Compendium DO Not Attach Compendium, Do Not Delete/merge, [id number] 09/27/2024 12:46:50 urinalysi s, dipstick 2023 024 MICKEY In-Office Order, Internal Use Only DO Not Attach Compendium DO Not Attach Compendium, Do Not Delete/merge, [id number] 04/06/2024 10:17:[address] referral 2024 025 margaret Hawkins MD, [address], [place], [address], 07/28/2024 11:39:23 Procedures None recorded. Surgeries None recorded. Imaging XR, cervical spine 2024 025 [facility] (Registration ), [address] [place], [address], 09/27/2024 12:50:36 MRI, brain, w/o contrast 2024 025 [facility], [address] [place], [address], 08/11/2024 14:49:26 Medication Orders None recorded. Patient TargetsNo targets recorded. Patient Instructions Encounter Date Encounter Id Patient Instructions Last Modified By Organization Details Last Modified Time 04/06/2024 [id number] painful urinatio n (dysuria): care instructions jnanney Not available 04/06/2024 10:11:20 When You Want to Lose Weight: Care Instructions jnanney Not available 04/06/2024 10:27:46 type 2 diabetes: care instructions jnanney Not available 04/06/2024 10:27:46 06/28/2024 [id number] coughing up blood: care instructions jnanney Not available 06/28/2024 18:33:32 09/20/2024 [id number] type 2 diabetes: care instructions jnanney Not available 09/20/2024 10:40:47 A healthy lifestyle: care instructions jnanney Not available 09/20/2024 10:40:47 09/27/2024 [id number] type 2 diabetes: care instructions jnanney Not available 09/27/2024 12:35:55 Reason for Referral Neurologist Referral for Fun ctional gait abnormality Referring Physician: Janeth Pavon, Family Medicine, Encounter Date: 06/28/2024 Results Created Date Observation Date Name Description Value Unit Range Abnormal Flag Note LastModifiedBy Organization Detail LastModifiedTime 04/06/2004/06/2024 urina lysis , dipst ick Leukocytes Negati ve Not Available In-Office Order Internal Use Only DO Not Attach Compendium DO Not Attach Compendium, Do Not Delete/merge, [id number] 04/06/2024 10:08:18 04/06/20 24 04/06/2024 urina lysis , dipst ick Nitrite negati ve Not Available In-Office Order Internal Use Only DO Not Attach Compendium DO Not Attach Compendium, Do Not Delete/merge, [id number] 04/06/2024 10:08:18 04/06/20 24 04/06/2024 urina lysis , dipst ick Urobilinogen .2 Not Available In-Of fice Order Internal Use Only DO Not Attach Compendium DO Not Attach Compendium, Do Not Delete/merge, [id number] 04/06/2024 10:08:18 04/06/20 24 04/06/2024 urina lysis , dipst ick Protein Negati ve Not Available In-Office Order Internal Use Only DO Not Attach Compendium DO Not Attach Compendium, Do Not Delete/merge, [id number] 04/06/2024 10:08:18 04/06/20 24 04/06/2024 urina lysis , dipst ick pH 6.0 Not Available In-Office Order Internal Use Only DO Not Attach Compendium DO Not Attach Compendium, Do Not Delete/merge, [id number] 04/06/2024 10:08:18 04/06/20 24 04/06/2024 urina lysis , dipst ick Blood Negati ve Not Available In-Office Order Internal Use Only DO Not Attach Compendium DO Not Attach Compendium, Do Not Delete/merge, [id number] 04/06/2024 10:08:18 04/06/20 24 04/06/2024 urina lysis , dipst ick Specific Snook 1.015 Not Available In-Off ice Order Internal Use Only DO Not Attach Compendium DO Not Attach Compendium, Do Not Delete/merge, [id number] 04/06/2024 10:08:18 04/06/20 24 04/06/2024 urina lysis , dipst ick Ketone Trace Not Available In-Office Order Internal Use Only DO Not Attach Compendium DO Not Attach Compendium, Do Not Delete/merge, [id number] 04/06/2024 10:08:18 04/06/20 24 04/06/2024 urina lysis , dipst ick Bilirubin Negati ve Not Available In-Office Order Internal Use Only DO Not Attach Compendium DO Not Attach Compendium, Do Not Delete/merge, [id number] 04/06/2024 10:08:18 04/06/20 24 04/06/2024 urina lysis , dipst ick Glucose 1000 Not Available In-Office Order Internal Use Only DO Not Attach Compendium DO Not Attach Compendium, Do Not Delete/merge, [id number] 04/06/2024 10:08:18 04/06/20 24 04/06/2024 urina lysis , dipst ick Appearance Clear Not Available In-Offi ce Order Internal Use Only DO Not Attach Compendium DO Not Attach Compendium, Do Not Delete/merge, [id number] 04/06/2024 10:08:18 04/06/20 24 04/06/2024 urina lysis , dipst ick Color Yellow Not Available In-Office Order Internal Use Only DO Not Attach Compendium DO Not Attach Compendium, Do Not Delete/merge, [id number] 04/06/2024 10:08:18 05/31/19 25 05/31/2024 Micro album in panel - 24 hour Urine microalbumin [mass/volume ] in urine 10.4 mg/L high: 20mg/L MICRO ALBUM IN (U) 10.4 <20 MG/L 05/31 7:37 PM LABORATORY IMMUNOLOGIST [facility] MARCI CABALLERO Not Available Not Available 08/29/2024 12:26:57 05/31/19 25 05/31/2024 Micro album in panel - 24 hour Urine creatinine [mass/volume ] in urine 47.4 text: mg/dL CREAT INTAYLOR RANDIesha M (U) 47.4 MG/DL 05/31 7:37 PM LABORATORY IMMUNOLOGIST [facility] MARCI CABALLERO Not Available Not Available 08/29/2024 12:26:57 05/31/19 25 05/31/2024 Micro album in panel - 24 hour Urine microalbumin /creatinine [mass ratio] in urine 21.9 mg/g high: 30mg/g ALBUM IN/CR EAT RATIO 21.9 <30 MG/G 05/31 7:37 PM LABORATORY IMMUNOLOGIST [facility] MARCI CABALLERO D Not Available Not Available 08/29/2024 12:26:57 06/08/19 25 06/09/2024 Gluco se [Mass /volu me] in Arter ial blood glucose [mass/volume ] in capillary blood by glucometer 241 mg/dL low: 70mg/d Lhigh: 99mg/d L high Gluco se WB/PO C 241 (H) 70 - 99 mg/dL 06/09 8:24 AM LABORATORY IMMUNOLOGIST [employer] [facility] Not Available Not Available 06/28/2024 17:40:48 06/08/19 25 06/09/2024 Gluco se [Mass /volu me] in Arter ial blood specimen source identified Cap Finger stick Speci men Type Cap Finge rstic k 06/09 8:24 AM LABORATORY IMMUNOLOGIST [employer] [facility] Not Available Not Available 06/28/2024 [...] 1.6 - 2.6 mg/dL 06/08 5:17 PM LABORATORY IMMUNOLOGIST [employer] [facility] Not Available Not Available 06/28/2024 17:40:48 06/08/1906/08/2024 Magne sium [Mass /volu me] [...] 70 - 99 mg/dL 06/08 5:17 PM LABORATORY IMMUNOLOGIST [employer] [facility] Not Available Not Available 06/28/2024 17:40:48 06/08/19 25 06/08/2024 Compr ehens chetna metab olic 2000 panel - Serum or Plasm a sodium [moles/volum e] in serum or plasma 135 mmol/ L low: 136mmo l/Lhig h: 145mmo l/L low Sodiu m 135 (L) 136 - 145 mmol/ L 06/08 5:17 PM LABORATORY IMMUNOLOGIST [facility] Not Available Not Available 06/28/2024 17:40:48 06/08/19 25 06/08/2024 Compr ehens chetna metab olic 1999 panel - Serum or Plasm a potassium [moles/volum e] in serum or plasma 3.9 mmol/ L low: 3.5mmo l/Lhig h: 5.1mmo l/L Potas sium 3.9 3.5 - 5.1 mmol/ L 06/08 5:17 PM LABORATORY IMMUNOLOGIST [facility] Not Available Not Available 06/28/2024 17:40:48 06/08/1906/08/2024 Compr ehens chetna metab olic 2000 panel - Serum or Plasm a chloride [moles/volum e] in serum or plasma 104 mmol/ L low: 98mmol /Lhigh : 107mmo l/L Chlor kiera 104 98 - 107 mmol/ L 06/08 5:17 PM LABORATORY IMMUNOLOGIST [facility] Not Available Not Available 06/28/2024 17:40:48 06/08/1906/08/2024 Compr ehens chetna metab olic 1999 panel - Serum or Plasm a carbon dioxide, total [moles/volum e] in serum or plasma 24 mmol/ L low: 22mmol /Lhigh : 29mmol /L CO2 24 22 - 29 mmol/ L 06/08 5:17 PM LABORATORY IMMUNOLOGIST [facility] Not Available Not Available 06/28/2024 17:40:48 06/08/1906/08/2024 Compr ehens chetna metab olic 2000 panel - Serum or Plasm a calcium [mass/volume ] in serum or plasma 8.1 mg/dL low: 8.4mg/ dLhigh : 10.4mg /dL low Calci um 8.1 (L) 8.4 - 10.4 mg/dL 06/08 5:17 PM LABORATORY IMMUNOLOGIST [facility] Not Available Not Available 06/28/2024 17:40:48 06/08/19 25 06/08/2024 Compr ehens chetna metab olic 2000 panel - Serum or Plasm a anion gap in blood 7 mmol/ L low: 6mmol/ Lhigh: 16mmol /L Anion Gap 7 6 - 16 mmol/ L 06/08 5:17 PM LABORATORY IMMUNOLOGIST [facility] Not Available Not Available 06/28/2024 17:40:48 06/08/19 25 06/08/2024 Compr ehens chetna metab olic 1999 panel - Serum or Plasm a urea nitrogen [mass/volume ] in serum or plasma 16 mg/dL low: 7mg/dL high: 26mg/d L BUN 16 7 - 26 mg/dL 06/08 5:17 PM LABORATORY IMMUNOLOGIST [facility] Not Available Not Available 06/28/2024 17:40:48 06/08/1906/08/2024 Compr ehens chetna metab olic 1999 panel - Serum or Plasm a creatinine [mass/volume ] in serum or plasma 0.88 mg/dL low: 0.72mg /dLhig h: 1.25mg /dL Creat inine 0.88 0.72 - 1.25 mg/dL 06/08 5:17 PM LABORATORY IMMUNOLOGIST [facility] Not Available Not Available 06/28/2024 17:40:48 06/08/1906/08/2024 Compr [employer] chetna metab olic 1999 panel - Serum or Plasm a alkaline phosphatase [enzymatic activity/vol ume] in serum or plasma 71 U/L low: 40U/Lh igh: 150U/L Alkal ine Phosp hatas e 71 40 - 150 U/L 06/08 5:17 PM LABORATORY IMMUNOLOGIST [facility] Not Available Not Available 06/28/2024 17:40:48 06/08/1906/08/2024 Compr ehens chetna metab olic 1999 panel - Serum or Plasm a alanine aminotransfe rase [enzymatic activity/vol ume] in serum or plasma 13 U/L low: 0U/Lhi gh: 55U/L ALT 13 0 - 55 U/L 06/08 5:17 PM LABORATORY IMMUNOLOGIST [facility] Not Available Not Available 06/28/2024 17:40:48 06/08/19 25 06/08/2024 Compr ehens chetna metab olic 1999 panel - Serum or Plasm a aspartate aminotransfe rase [enzymatic activity/vol ume] in serum or plasma 20 U/L low: 5U/Lhi gh: 34U/L AST 20 5 - 34 U/L 06/08 5:17 PM LABORATORY IMMUNOLOGIST [employer] [facility] Not Available Not Available 06/28/2024 17:40:48 06/08/1906/08/2024 Compr [employer] 1999 panel - Serum or Plasm a protein [mass/volume ] in serum or plasma 5.7 text: 6.4 - 8.3 gm/dL low Prote in Total 5.7 (L) 6.4 - 8.3 gm/dL 06/08 5:17 PM LABORATORY IMMUNOLOGIST [employer] ATORY Not Available Not Available 06/28/2024 17:40:48 06/08/1906/08/2024 Compr Zilliant 1999 panel - Serum or Plasm a albumin [mass/volume ] in serum or plasma 2.9 text: 3.4 - 5.0 gm/dL low Album in 2.9 (L) 3.4 - 5.0 gm/dL 06/08 5:17 PM LABORATORY IMMUNOLOGIST [facility] [facility] Not Available Not Available 06/28/2024 17:40:48 06/08/1906/08/2024 Compr [employer]illiant 2000 panel - Serum or Plasm a bilirubin.to kathi [mass/volume ] in serum or plasma 3 mg/dL low: 0.2mg/ dLhigh : 1.2mg/ dL high Bilir ubin Total 3.0 (H) 0.2 - 1.2 mg/dL 06/08 5:17 PM [employer] ATORY Not Available Not Available 06/28/2024 17:40:48 06/08/1906/08/2024 Mengero 2000 panel - Serum or Plasm a glomerular filtration rate/1.73 sq M.predicted [volume rate/area] in serum, plasma or blood by creatinine-b ased formula (CKD-epi 2020) text: >=90 mL/min /1.73 m2 eGFR by CKD-E PI >90 >=90 mL/mi n/1.7 3 m2 06/08 5:17 PM LABORATORY IMMUNOLOGIST [facility] Not Available Not Available 06/28/2024 17:40:48 06/08/1906/08/2024 Compr ehens chetna metab olic 2000 panel - Serum or Plasm a interpretati on and review of laboratory results Abnorm al Not Available Not Available 17:40:48 06/08/19 25 06/08/2024 CBC W Auto Diffe renti al panel - Blood leukocytes [#/volume] in blood by automated count 4.2 text: 4.0 - 10.7 x10e9/ L WBC 4.2 4.0 - 10.7 x10E9 /L 06/08 5:12 PM LABORATORY IMMUNOLOGIST [facility] Not Available Not Available 06/28/2024 17:40:43 06/08/1906/08/2024 CBC W Auto Diffe renti al panel - Blood erythrocytes [#/volume] in blood by automated count 5.01 text: 4.30 - 5.80 x10e12 /L RBC Count 5.01 4.30 - 5.80 x10E1 2/L 06/08 5:12 PM LABORATORY IMMUNOLOGIST [facility] Not Available Not Available 06/28/2024 17:40:43 06/08/1906/08/2024 CBC W Auto Diffe renti al panel - Blood hemoglobin [mass/volume ] in blood 14.8 g/dL low: 13.3g/ dLhigh : 17.5g/ dL Hemog lobin 14.8 13.3 - 17.5 g/dL 06/08 5:12 PM LABORATORY IMMUNOLOGIST [facility] Not Available Not Available 06/28/2024 17:40:43 06/08/1906/08/2024 CBC W Auto Diffe renti al panel - Blood hematocrit [volume fraction] of blood by automated count 42.1 % low: 38.7%h igh: 51.1% Hemat ocrit 42.1 38.7 - 51.1 % 06/08 5:12 PM LABORATORY IMMUNOLOGIST [facility] Not Available Not Available 06/28/2024 17:40:43 06/08/19 25 06/08/2024 CBC W Auto Diffe renti al panel - Blood MCV [entitic volume] by automated count 84 fL low: 80fLhi gh: 98fL MCV 84.0 80.0 - 98.0 fL 06/08 5:12 PM LABORATORY IMMUNOLOGIST [facility] Not Available Not Available 06/28/2024 17:40:43 06/08/1906/08/2024 CBC W Auto Diffe easton villegas panel - Blood MCH [entitic mass] by automated count 29.5 pg low: 26.7pg high: 33.6pg MCH 29.5 26.7 - 33.6 pg 06/08 5:12 PM LABORATORY IMMUNOLOGIST [facility] Not Available Not Available 06/28/2024 17:40:43 06/08/1906/08/2024 CBC W Auto Diffe easton villegas panel - Blood MCHC [mass/volume ] by automated count 35.2 g/dL low: 31.7g/ dLhigh : 36.3g/ dL MCHC 35.2 31.7 - 36.3 g/dL 06/08 5:12 PM LABORATORY IMMUNOLOGIST [facility] Not Available Not Available 06/28/2024 17:40:43 06/08/1906/08/2024 CBC W Auto Diffe easton villegas panel - Blood erythrocyte distribution width [ratio] by automated count 15.9 % low: 11.3%h igh: 14.8% high RDW-C V 15.9 (H) 11.3 - 14.8 % 06/08 5:12 PM LABORATORY IMMUNOLOGIST [facility] Not Available Not Available 06/28/2024 17:40:43 06/08/1906/08/2024 CBC W Auto Diffkasie villegas panel - Blood platelets [#/volume] in blood by automated count 67 text: 150 - 420 x10e9/ L low Plate let Count 67 (L) 150 - 420 x10E9 /L 06/08 5:12 PM LABORATORY IMMUNOLOGIST [facility] Not Available Not Available 06/28/2024 17:40:43 06/08/1906/08/2024 CBC W Auto Diffe easton villegas panel - Blood platelet mean volume [entitic volume] in blood by automated count 10.4 fL low: 7.8fLh igh: 11.4fL MPV 10.4 7.8 - 11.4 fL 06/08 5:12 PM LABORATORY IMMUNOLOGIST [facility] Not Available Not Available 06/28/2024 17:40:43 06/08/1906/08/2024 CBC W Auto Diffe renti al panel - Blood neutrophils/ 100 leukocytes in blood by automated count 67.5 % low: 41%hig h: 74% Neutr ophil % 67.5 41.0 - 74.0 % 06/08 5:12 PM LABORATORY IMMUNOLOGIST [facility] Not Available Not Available 06/28/2024 17:40:43 06/08/1906/08/2024 CBC W Auto Diffe renti al panel - Blood lymphocytes/ 100 leukocytes in blood by automated count 15.4 % low: 17%hig h: 47% low Lymph ocyte % 15.4 (L) 17.0 - 47.0 % 06/08 5:12 PM LABORATORY IMMUNOLOGIST [facility] Not Available Not Available 06/28/2024 17:40:43 06/08/1906/08/2024 CBC W Auto Diffe renti al panel - Blood monocytes/10 0 leukocytes in blood by automated count 15.9 % low: 3%high : 11% high Monoc yte % 15.9 (H) 3.0 - 11.0 % 06/08 5:12 PM LABORATORY IMMUNOLOGIST [facility] Not Available Not Available 06/28/2024 17:40:43 06/08/1906/08/2024 CBC W Auto Diffe renti al panel - Blood eosinophils/ 100 leukocytes in blood by automated count 0 % low: 0%high : 7% Eosin ophil % 0.0 0.0 - 7.0 % 06/08 5:12 PM LABORATORY IMMUNOLOGIST [facility] Not Available Not Available 06/28/2024 17:40:43 06/08/1906/08/2024 CBC W Auto Diffe renti al panel - Blood basophils/10 0 leukocytes in blood by automated count 0.7 % low: 0%high : 1.6% Basop hil % 0.7 0.0 - 1.6 % 06/08 5:12 PM LABORATORY IMMUNOLOGIST [facility] Not Available Not Available 06/28/2024 17:40:43 06/08/1906/08/2024 CBC W Auto Diffe renti al panel - Blood immature granulocytes /100 leukocytes in blood by automated count 0.5 % low: 0%high : 1% Immat ure Granu locyt es % 0.5 0.0 - 1.0 % 06/08 5:12 PM LABORATORY IMMUNOLOGIST [facility] Not Available Not Available 06/28/2024 17:40:43 06/08/1906/08/2024 CBC W Auto Diffe renti al panel - Blood neutrophils [#/volume] in blood by automated count 2.8 text: 1.60 - 7.50 x10e9/ L Neutr ophil Absol jena 2.80 1.60 - 7.50 x10E9 /L 06/08 5:12 PM LABORATORY IMMUNOLOGIST [facility] Not Available Not Available 06/28/2024 17:40:43 06/08/1906/08/2024 CBC W Auto Diffe renti al panel - Blood lymphocytes [#/volume] in blood by automated count 0.64 text: 1.00 - 4.40 x10e9/ L low Lymph ocyte Absol jena 0.64 (L) 1.00 - 4.40 x10E9 /L 06/08 5:12 PM LABORATORY IMMUNOLOGIST [facility] Not Available Not Available 06/28/2024 17:40:43 06/08/1906/08/2024 CBC W Auto Diffe renti al panel - Blood monocytes [#/volume] in blood by automated count 0.66 text: 0.15 - 1.00 x10e9/ L Monoc yte Absol jena 0.66 0.15 - 1.00 x10E9 /L 06/08 5:12 PM LABORATORY IMMUNOLOGIST [facility] Not Available Not Available 06/28/2024 17:40:43 06/08/1906/08/2024 CBC W Auto Diffe renti al panel - Blood eosinophils [#/volume] in blood 0 text: 0.00 - 0.60 x10e9/ L Eosin ophil Absol jena 0.00 0.00 - 0.60 x10E9 /L 06/08 5:12 PM LABORATORY IMMUNOLOGIST [facility] Not Available Not Available 06/28/2024 17:40:43 06/08/1906/08/2024 CBC W Auto Diffe renti al panel - Blood basophils [#/volume] in blood by automated count 0.03 text: 0.00 - 0.13 x10e9/ L Basop hil Absol jena 0.03 0.00 - 0.13 x10E9 /L 06/08 5:12 PM LABORATORY IMMUNOLOGIST [facility] Not Available Not Available 06/28/2024 17:40:43 06/08/19 25 06/08/2024 CBC W Auto Diffe renti al panel - Blood interpretati on and review of laboratory results Abnorm al Not Available Not Available 17:40:43 06/08/1906/08/2024 Natri ureti c pepti de B [Mass /volu me] in Serum or Plasm a natriuretic peptide B [mass/volume ] in serum or plasma 345 pg/mL high: 100pg/ mL high BNP 345 (H) <=100 pg/mL 06/08 5:19 PM LABORATORY IMMUNOLOGIST [facility] Not Available Not Available 06/28/2024 17:40:42 06/08/1906/08/2024 Natri ureti c pepti de B [Mass [...] 70 - 99 mg/dL 06/09 8:23 AM LABORATORY IMMUNOLOGIST [facility] Not Available Not Available 06/28/2024 17:40:48 06/08/19 25 06/09/2024 Gluco se [Mass /volu me] in Arter ial blood specimen source identified Cap Finger stick Speci men Type Cap Finge rstic k 06/09 8:23 AM LABORATORY IMMUNOLOGIST [facility] Not Available Not Available [...] 70 - 99 mg/dL 06/09 9:47 PM LABORATORY IMMUNOLOGIST [facility] Not Available Not Available 06/28/2024 17:40:48 06/09/19 25 06/09/2024 Gluco se [Mass /volu me] in Arter ial blood specimen source identified Cap Finger stick Speci men Type Cap Finge rstic k 06/09 9:47 PM LABORATORY IMMUNOLOGIST [facility] Not Available Not Available [...] 70 - 99 mg/dL 06/09 5:57 PM LABORATORY IMMUNOLOGIST [facility] Not Available Not Available 06/28/2024 17:40:48 06/09/19 25 06/09/2024 Gluco se [Mass /volu me] in Arter ial blood specimen source identified Cap Finger stick Speci men Type Cap Finge rstic k 06/09 5:57 PM LABORATORY IMMUNOLOGIST [facility] Not Available Not Available [...] 70 - 99 mg/dL 06/09 1:54 PM LABORATORY IMMUNOLOGIST [facility] Not Available Not Available 06/28/2024 17:40:48 06/09/19 25 06/09/2024 Gluco se [Mass /volu me] in Arter ial blood specimen source identified Cap Finger stick Speci men Type Cap Lanie rstic k 06/09 1:54 PM LABORATORY IMMUNOLOGIST [facility] Not Available Not Available [...] 70 - 99 mg/dL 06/09 8:24 AM LABORATORY IMMUNOLOGIST [facility] Not Available Not Available 06/28/2024 17:40:48 06/09/19 25 06/09/2024 Gluco se [Mass /volu me] in Arter ial blood specimen source identified Cap Finger stick Speci men Type Cap Finge rstic k 06/09 8:24 AM LABORATORY IMMUNOLOGIST [facility] Not Available Not Available [...] 70 - 99 mg/dL 06/09 8:24 AM LABORATORY IMMUNOLOGIST [employer] [facility] Not Available Not Available 06/28/2024 17:40:48 06/09/1906/09/2024 Gluco se [Mass /volu me] in Arter ial blood specimen source identified Cap Finger stick Speci men Type Cap Finge rstic k 06/09 8:24 AM LABORATORY IMMUNOLOGIST [employer] [facility] Not Available Not Available 06/28/2024 [...] - 10.7 x10E9 /L 06/09 2:37 AM LABORATORY IMMUNOLOGIST [employer] AT[facility] Not Available Not Available 06/28/2024 17:40:48 06/09/1906/09/2024 CBC panel - Blood by Autom ated count erythrocytes [#/volume] in blood by automated count 4.95 text: 4.30 - 5.80 x10e12 /L RBC Count 4.95 4.30 - 5.80 x10E1 2/L 06/09 2:37 AM LABORATORY IMMUNOLOGIST [employer] [facility] Not Available Not Available 06/28/2024 17:40:48 06/09/1906/09/2024 CBC panel - Blood by Autom ated count hemoglobin [mass/volume ] in blood 14.8 g/dL low: 13.3g/ dLhigh : 17.5g/ dL Hemog lobin 14.8 13.3 - 17.5 g/dL 06/09 2:37 AM LABORATORY IMMUNOLOGIST [employer] [facility] Not Available Not Available 06/28/2024 17:40:48 06/09/1906/09/2024 CBC panel - Blood by Autom ated count hematocrit [volume fraction] of blood by automated count 42 % low: 38.7%h igh: 51.1% Hemat ocrit 42.0 38.7 - 51.1 % 06/09 2:37 AM LABORATORY IMMUNOLOGIST [employer] [facility] Not Available Not Available 06/28/2024 17:40:48 06/09/1906/09/2024 CBC panel - Blood by Autom ated count MCV [entitic volume] by automated count 84.8 fL low: 80fLhi gh: 98fL MCV 84.8 80.0 - 98.0 fL 06/09 2:37 AM LABORATORY IMMUNOLOGIST [employer] [facility] Not Available Not Available 06/28/2024 17:40:48 06/09/1906/09/2024 CBC panel - Blood by Autom ated count MCH [entitic mass] by automated count 29.9 pg low: 26.7pg high: 33.6pg MCH 29.9 26.7 - 33.6 pg 06/09 2:37 AM LABORATORY IMMUNOLOGIST [employer] [facility] Not Available Not Available 06/28/2024 17:40:48 06/09/1906/09/2024 CBC panel - Blood by Autom ated count MCHC [mass/volume ] by automated count 35.2 g/dL low: 31.7g/ dLhigh : 36.3g/ dL MCHC 35.2 31.7 - 36.3 g/dL 06/09 2:37 AM LABORATORY IMMUNOLOGIST [employer] [facility] Not Available Not Available 06/28/2024 17:40:48 06/09/1906/09/2024 CBC panel - Blood by Autom ated count erythrocyte distribution width [ratio] by automated count 15.7 % low: 11.3%h igh: 14.8% high RDW-C V 15.7 (H) 11.3 - 14.8 % 06/09 2:37 AM LABORATORY IMMUNOLOGIST [employer] [facility] Not Available Not Available 06/28/2024 17:40:48 06/09/1906/09/2024 CBC panel - Blood by Autom ated count platelets [#/volume] in blood by automated count 67 text: 150 - 420 x10e9/ L low Plate let Count 67 (L) 150 - 420 x10E9 /L 06/09 2:37 AM LABORATORY IMMUNOLOGIST [employer] AT[facility] Not Available Not Available 06/28/2024 17:40:48 06/09/1906/09/2024 CBC panel - Blood by Autom ated count platelet mean volume [entitic volume] in blood by automated count 11.8 fL low: 7.8fLh igh: 11.4fL high MPV 11.8 (H) 7.8 - 11.4 fL 06/09 2:37 AM LABORATORY IMMUNOLOGIST [employer] AT[facility] Not Available Not Available 06/28/2024 17:40:48 06/09/1906/09/2024 CBC panel - Blood by Autom ated count interpretati on and review of laboratory results Abnorm al Not Available Not Available 17:40:48 06/09/19 25 06/09/2024 Thyro tropi n [Unit s/vol ume] in Serum or Plasm a thyrotropin [units/volum e] in serum or plasma by detection limit <= 0.005 mIU/L 0.559 text: 0.350 - 4.940 uIU/mL TSH 0.559 0.350 - 4.940 uIU/m L 06/09 2:56 AM LABORATORY IMMUNOLOGIST [facility] ATORY Not Available Not Available 06/28/2024 17:40:43 06/09/19 25 06/09/2024 Thyro tropi n [Unit s/vol ume] in Serum or Plasm a interpretati on and review of laboratory results Normal Not Available Not Available 06/05 17:40:43 06/09/19 25 06/09/2024 Hemog lobin A1c/H emogl obin. total in Blood hemoglobin A1C/hemoglob in.total in blood 9.1 % high: 5.7% high Hemog lobin A1c 9.1 (H) <5.7 % 06/09 2:28 AM LABORATORY IMMUNOLOGIST [facility] ATORY Not Available Not Available 06/28/2024 17:40:43 06/09/19 25 06/09/2024 Hemog lobin A1c/H emogl obin. total in Blood glucose mean value [mass/volume ] in blood estimated from glycated hemoglobin 214 mg/dL Estim ated [place] [facility] Gluco se 214 mg/dL 06/09 2:28 AM LABORATORY IMMUNOLOGIST [facility] LABOR ATORY Not Available Not Available [...] s 5% in the specim en. The [employer] y assay for the measur ement [...] Not Available 17:40:43 06/09/19 25 06/09/2024 Compr ehens chetna metab olic 2000 panel - Serum or Plasm a glucose [mass/volume ] in serum or plasma 220 mg/dL low: 70mg/d Lhigh: 99mg/d L high Gluco se 220 (H) 70 - 99 mg/dL 06/09 3:01 AM [facility] LABOR ATORY Not Available Not Available 06/28/2024 17:40:42 06/09/19 25 06/09/2024 Compr ehens chetna metab olic 2000 panel - Serum or Plasm a sodium [moles/volum e] in serum or plasma 134 mmol/ L low: 136mmo l/Lhig h: 145mmo l/L low Sodiu m 134 (L) 136 - 145 mmol/ L 06/09 3:01 AM [facility] [employer] ATORY Not Available Not Available 06/28/2024 17:40:42 06/09/1906/09/2024 Compr ehens chetna metab olic 2000 panel - Serum or Plasm a potassium [moles/volum e] in serum or plasma 4.2 mmol/ L low: 3.5mmo l/Lhig h: 5.1mmo l/L Potas sium 4.2 3.5 - 5.1 mmol/ L 06/09 3:01 AM [facility] [employer] ATORY Not Available Not Available 06/28/2024 17:40:42 06/09/1906/09/2024 Compr ehens chetna metab olic 2000 panel - Serum or Plasm a chloride [moles/volum e] in serum or plasma 104 mmol/ L low: 98mmol /Lhigh : 107mmo l/L Chlor kiera 104 98 - 107 mmol/ L 06/09 3:01 AM [facility] [employer] ATORY Not Available Not Available 06/28/2024 17:40:42 06/09/1906/09/2024 Compr ehens chetna metab olic 2000 panel - Serum or Plasm a carbon dioxide, total [moles/volum e] in serum or plasma 21 mmol/ L low: 22mmol /Lhigh : 29mmol /L low CO2 21 (L) 22 - 29 mmol/ L 06/09 3:01 AM [facility] LABOR ATORY Not Available Not Available 06/28/2024 17:40:42 06/09/19 25 06/09/2024 Compr ehens chetna metab olic 2000 panel - Serum or Plasm a calcium [mass/volume ] in serum or plasma 8.1 mg/dL low: 8.4mg/ dLhigh : 10.4mg /dL low Calci um 8.1 (L) 8.4 - 10.4 mg/dL 06/09 3:01 AM [employer] ATORY Not Available Not Available 06/28/2024 17:40:42 06/09/19 25 06/09/2024 Compr [employer] chetna metab olic 1999 panel - Serum or Plasm a anion gap in blood 9 mmol/ L low: 6mmol/ Lhigh: 16mmol /L Anion Gap 9 6 - 16 mmol/ L 06/09 3:01 AM LABORATORY IMMUNOLOGIST [employer] ATORY Not Available Not Available 06/28/2024 17:40:42 06/09/19 25 06/09/2024 Compr [employer] chetna [employer] olic 2000 panel - Serum or Plasm a urea nitrogen [mass/volume ] in serum or plasma 18 mg/dL low: 7mg/dL high: 26mg/d L BUN 18 7 - 26 mg/dL 06/09 3:01 AM LABORATORY IMMUNOLOGIST [employer] ATORY Not Available Not Available 06/28/2024 17:40:42 06/09/19 25 06/09/2024 Compr [employer] chetnaCreatorBox olic 1999 panel - Serum or Plasm a creatinine [mass/volume ] in serum or plasma 0.85 mg/dL low: 0.72mg /dLhig h: 1.25mg /dL Creat inine 0.85 0.72 - 1.25 mg/dL 06/09 3:01 AM LABORATORY IMMUNOLOGIST [employer] ATORY Not Available Not Available 06/28/2024 17:40:42 06/09/19 25 06/09/2024 Compr [employer] chetna [employer] olic 1999 panel - Serum or Plasm a alkaline phosphatase [enzymatic activity/vol ume] in serum or plasma 65 U/L low: 40U/Lh igh: 150U/L Alkal ine Phosp hatas e 65 40 - 150 U/L 06/09 3:01 AM LABORATORY IMMUNOLOGIST [employer] ATORY Not Available Not Available 06/28/2024 17:40:42 06/09/19 25 06/09/2024 Compr [employer] chetna [employer] olic 2000 panel - Serum or Plasm a alanine aminotransfe rase [enzymatic activity/vol ume] in serum or plasma 14 U/L low: 0U/Lhi gh: 55U/L ALT 14 0 - 55 U/L 06/09 3:01 AM LABORATORY IMMUNOLOGIST [employer] LABOR ATORY Not Available Not Available 06/28/2024 17:40:42 06/09/19 25 06/09/2024 Compr [employer] chetna [employer] [facility] 1999 panel - Serum or Plasm a aspartate aminotransfe rase [enzymatic activity/vol ume] in serum or plasma 50 U/L low: 5U/Lhi gh: 34U/L high AST 50 (H) 5 - 34 U/L 06/09 3:01 AM LABORATORY IMMUNOLOGIST [employer] ATORY Not Available Not Available 06/28/2024 17:40:42 06/09/19 25 06/09/2024 Compr ens chetna [employer] [facility] 1999 panel - Serum or Plasm a protein [mass/volume ] in serum or plasma 5.8 text: 6.4 - 8.3 gm/dL low Prote in Total 5.8 (L) 6.4 - 8.3 gm/dL 06/09 3:01 AM [employer] ATORY Not Available Not Available 06/28/2024 17:40:42 06/09/19 25 06/09/2024 [facility] [employer] chetna [employer] [facility] [employer] panel - Serum or Plasm a albumin [mass/volume ] in serum or plasma 2.8 text: 3.4 - 5.0 gm/dL low Album in 2.8 (L) 3.4 - 5.0 gm/dL 06/09 3:01 AM [employer] ATORY Not Available Not Available 06/28/2024 17:40:42 06/09/19 25 06/09/2024 Compr [employer] chetna [employer]ok[employer] panel - Serum or Plasm a bilirubin.to kathi [mass/volume ] in serum or plasma 3.2 mg/dL low: 0.2mg/ dLhigh : 1.2mg/ dL high Bilir ubin Total 3.2 (H) 0.2 - 1.2 mg/dL 06/09 3:01 AM [employer] ATORY Not Available Not Available 06/28/2024 17:40:42 06/09/19 25 06/09/2024 Compr ehens chetna metab olic 1999 panel - Serum or Plasm a glomerular filtration rate/1.73 sq M.predicted [volume rate/area] in serum, plasma or blood by creatinine-b ased formula (CKD-epi 2020) text: >=90 mL/min /1.73 m2 eGFR by CKD-E PI >90 >=90 mL/mi n/1.7 3 m2 06/09 3:01 AM LABORATORY IMMUNOLOGIST [facility] LABOR ATORY Not Available Not Available 06/28/2024 17:40:42 06/09/19 25 06/09/2024 Compr ehens chetna metab olic 1999 panel - Serum or Plasm a interpretati on and review of laboratory results Abnorm al Not Available Not Available 17:40:42 06/09/19 25 06/09/2024 Phosp hate [Mass /volu me] in Serum or Plasm a phosphate [mass/volume ] in serum or plasma 3.1 mg/dL low: 2.5mg/ dLhigh : 4.5mg/ dL Phosp horus 3.1 2.5 - 4.5 mg/dL 06/09 2:40 AM LABORATORY IMMUNOLOGIST [facility] LABOR ATORY Not Available Not Available 06/28/2024 [...] 1.6 - 2.6 mg/dL 06/09 2:40 AM LABORATORY IMMUNOLOGIST [facility] LABOR ATORY Not Available Not Available [...] l 69 <200 mg/dL 06/09 2:40 AM LABORATORY IMMUNOLOGIST [employer] ATORY Not Available Not Available 06/28/2024 17:40:42 06/09/19 25 06/09/2024 Lipid 1996 panel - Serum or Plasm a triglyceride [mass/volume ] in serum or plasma 99 mg/dL high: 150mg/ dL Trigl yceri patricia 99 <150 mg/dL 06/09 2:40 AM LABORATORY IMMUNOLOGIST [employer] ATORY Not Available Not Available 06/28/2024 17:40:42 06/09/19 25 06/09/2024 Lipid 1996 panel - Serum or Plasm a cholesterol in HDL [mass/volume ] in serum or plasma 19 mg/dL low: 40mg/d L low HDL Loretta stero l 19 (L) >40 mg/dL 06/09 2:40 AM [employer] ATORY Not Available Not Available 06/28/2024 17:40:42 06/09/19 25 06/09/2024 Lipid 1996 panel - Serum or Plasm a cholesterol in LDL [mass/volume ] in serum or plasma by calculation 30 mg/dL high: 130mg/ dL LDL Calcu lated 30 <130 mg/dL 06/09 2:40 AM [employer] ATORY Not Available Not Available 06/28/2024 17:40:42 06/09/19 25 06/09/2024 Lipid 1996 panel - Serum or Plasm a cholesterol in VLDL [mass/volume ] in serum or plasma by calculation 20 mg/dL high: 30mg/d L VLDL Calcu lated 20 <=30 mg/dL 06/09 2:40 AM LABORATORY IMMUNOLOGIST [employer] ATORY Not Available Not Available 06/28/2024 17:40:42 06/09/19 25 06/09/2024 Lipid 1996 panel - Serum or Plasm a cholesterol. total/choles terol in HDL [mass ratio] in serum or plasma 3.6 high: 4.5 Chol HDL Ratio 3.6 <4.5 06/09 2:40 AM LABORATORY IMMUNOLOGIST [facility] LABOR ATORY Not Available Not Available 06/28/2024 17:40:42 06/09/19 25 06/09/2024 Lipid 1996 panel - Serum or Plasm a cholesterol in LDL/choleste rol in HDL [mass ratio] in serum or plasma 1.6 high: 5 LDL/H DL Ratio 1.6 <5.0 06/09 2:40 AM LABORATORY IMMUNOLOGIST [facility] LABOR ATORY Not Available Not Available 06/28/2024 [...] 70 - 99 mg/dL 06/10 12:53 PM LABORATORY IMMUNOLOGIST [employer] ATORY Not Available Not Available 06/28/2024 17:40:43 06/10/19 25 06/10/2024 Gluco se [Mass /volu me] in Arter ial blood specimen source identified Cap Finger stick Speci men Type Cap Finge rstic k 06/10 12:53 PM LABORATORY IMMUNOLOGIST [employer] ATORY Not Available Not Available 06/28/2024 17:40:43 [...] 70 - 99 mg/dL 06/10 1:24 PM LABORATORY IMMUNOLOGIST [employer] LABOR ATORY Not Available Not Available 06/28/2024 17:40:48 02/07/06/10/2024 Gluco se [Mass /volu me] in Arter ial blood specimen source identified Cap Finger stick Speci men Type Cap Zandra rsshakila k 06/10 1:24 PM LABORATORY IMMUNOLOGIST [facility] LABOR ATORY Not Available Not Available [...] 70 - 99 mg/dL 06/10 7:16 AM LABORATORY IMMUNOLOGIST [facility] LABOR ATORY Not Available Not Available 06/28/2024 17:40:48 06/10/19 25 06/10/2024 Gluco se [Mass /volu me] in Arter ial blood specimen source identified Cap Finger stick Speci men Type Cap Zandra rstic k 06/10 7:16 AM LABORATORY IMMUNOLOGIST [facility] LABOR ATORY Not Available Not Available 06/28/2024 17:40:48 06/10/19 25 06/10/2024 Gluco se [Mass /volu me] in Arter ial blood glucose [mass/volume ] in capillary blood by glucometer 74 mg/dL low: 70mg/d Lhigh: 99mg/d L Gluco se WB/PO C 74 70 - 99 mg/dL 06/10 6:43 AM LABORATORY IMMUNOLOGIST [facility] LABOR ATORY Not Available Not Available 06/28/2024 17:40:48 06/10/19 25 06/10/2024 Gluco se [Mass /volu me] in Arter ial blood specimen source identified Cap Finger stick Speci men Type Cap Zandra rstic k 06/10 6:43 AM LABORATORY IMMUNOLOGIST [facility] LABOR ATORY Not Available Not Available 06/28/2024 17:40:48 06/10/19 25 06/10/2024 CBC panel - Blood by Autom ated count leukocytes [#/volume] in blood by automated count 2.3 text: 4.0 - 10.7 x10e9/ L low WBC 2.3 (L) 4.0 - 10.7 x10E9 /L 06/10 5:36 AM [employer] ATORY Not Available Not Available 06/28/2024 17:40:43 06/10/1906/10/2024 CBC panel - Blood by Autom ated count erythrocytes [#/volume] in blood by automated count 4.44 text: 4.30 - 5.80 x10e12 /L RBC Count 4.44 4.30 - 5.80 x10E1 2/L 06/10 5:36 AM [employer] ATORY Not Available Not Available 06/28/2024 17:40:43 06/10/1906/10/2024 CBC panel - Blood by Autom ated count hemoglobin [mass/volume ] in blood 13.2 g/dL low: 13.3g/ dLhigh : 17.5g/ dL low Hemog lobin 13.2 (L) 13.3 - 17.5 g/dL 06/10 5:36 AM [employer] ATORY Not Available Not Available 06/28/2024 17:40:43 06/10/1906/10/2024 CBC panel - Blood by Autom ated count hematocrit [volume fraction] of blood by automated count 37.8 % low: 38.7%h igh: 51.1% low Hemat ocrit 37.8 (L) 38.7 - 51.1 % 06/10 5:36 AM [employer] ATORY Not Available Not Available 06/28/2024 17:40:43 06/10/1906/10/2024 CBC panel - Blood by Autom ated count MCV [entitic volume] by automated count 85.1 fL low: 80fLhi gh: 98fL MCV 85.1 80.0 - 98.0 fL 06/10 5:36 AM [employer] ATORY Not Available Not Available 06/28/2024 17:40:43 06/10/1906/10/2024 CBC panel - Blood by Autom ated count MCH [entitic mass] by automated count 29.7 pg low: 26.7pg high: 33.6pg MCH 29.7 26.7 - 33.6 pg 06/10 5:36 AM LABORATORY IMMUNOLOGIST [employer] ATORY Not Available Not Available 06/28/2024 17:40:43 06/10/1906/10/2024 CBC panel - Blood by Autom ated count MCHC [mass/volume ] by automated count 34.9 g/dL low: 31.7g/ dLhigh : 36.3g/ dL MCHC 34.9 31.7 - 36.3 g/dL 06/10 5:36 AM LABORATORY IMMUNOLOGIST [employer] LABOR ATORY Not Available Not Available 06/28/2024 17:40:43 06/10/1906/10/2024 CBC panel - Blood by Autom ated count erythrocyte distribution width [ratio] by automated count 15.2 % low: 11.3%h igh: 14.8% high RDW-C V 15.2 (H) 11.3 - 14.8 % 06/10 5:36 AM [employer] ATORY Not Available Not Available 06/28/2024 17:40:43 06/10/19 25 06/10/2024 CBC panel - Blood by Autom ated count platelets [#/volume] in blood by automated count 64 text: 150 - 420 x10e9/ L low Plate let Count 64 (L) 150 - 420 x10E9 /L 06/10 5:36 AM [employer] ATORY Not Available Not Available 06/28/2024 17:40:43 06/10/1906/10/2024 CBC panel - Blood by Autom ated count platelet mean volume [entitic volume] in blood by automated count 10.9 fL low: 7.8fLh igh: 11.4fL MPV 10.9 7.8 - 11.4 fL 06/10 5:36 AM [employer] ATORY Not Available Not Available 06/28/2024 17:40:43 [...] 70 - 99 mg/dL 06/10 5:25 AM LABORATORY IMMUNOLOGIST [employer] LABOR ATORY Not Available Not Available 06/28/2024 17:40:42 06/10/1906/10/2024 Basic metab olic 2000 panel - Serum or Plasm a sodium [moles/volum e] in serum or plasma 139 mmol/ L low: 136mmo l/Lhig h: 145mmo l/L Sodiu m 139 136 - 145 mmol/ L 06/10 5:25 AM LABORATORY IMMUNOLOGIST [employer] LABOR ATORY Not Available Not Available 06/28/2024 17:40:42 06/10/1906/10/2024 [employer] olic 2000 panel - Serum or Plasm a potassium [moles/volum e] in serum or plasma 3.4 mmol/ L low: 3.5mmo l/Lhig h: 5.1mmo l/L low Potas sium 3.4 (L) 3.5 - 5.1 mmol/ L 06/10 5:25 AM LABORATORY IMMUNOLOGIST [employer] LABOR ATORY Not Available Not Available 06/28/2024 17:40:42 06/10/1906/10/2024 Basic metab olic 1999 panel - Serum or Plasm a chloride [moles/volum e] in serum or plasma 107 mmol/ L low: 98mmol /Lhigh : 107mmo l/L Chlor kiera 107 98 - 107 mmol/ L 06/10 5:25 AM LABORATORY IMMUNOLOGIST [employer] ATORY Not Available Not Available 06/28/2024 17:40:42 06/10/1906/10/2024 [employer] olic 1999 panel - Serum or Plasm a carbon dioxide, total [moles/volum e] in serum or plasma 22 mmol/ L low: 22mmol /Lhigh : 29mmol /L CO2 22 22 - 29 mmol/ L 06/10 5:25 AM LABORATORY IMMUNOLOGIST [employer] LABOR ATORY Not Available Not Available 06/28/2024 17:40:42 06/10/19 25 06/10/2024 Basic metab olic 1999 panel - Serum or Plasm a calcium [mass/volume ] in serum or plasma 8.2 mg/dL low: 8.4mg/ dLhigh : 10.4mg /dL low Calci um 8.2 (L) 8.4 - 10.4 mg/dL 06/10 5:25 AM [employer] ATORY Not Available Not Available 06/28/2024 17:40:42 06/10/19 25 06/10/2024 [employer] 2000 panel - Serum or Plasm a anion gap in blood 10 mmol/ L low: 6mmol/ Lhigh: 16mmol /L Anion Gap 10 6 - 16 mmol/ L 06/10 5:25 AM LABORATORY IMMUNOLOGIST [employer] ATORY Not Available Not Available 06/28/2024 17:40:42 06/10/1906/10/2024 [employer] olic 2000 panel - Serum or Plasm a urea nitrogen [mass/volume ] in serum or plasma 15 mg/dL low: 7mg/dL high: 26mg/d L BUN 15 7 - 26 mg/dL 06/10 5:25 AM [employer] ATORY Not Available Not Available 06/28/2024 17:40:42 06/10/1906/10/2024 [employer] 2000 panel - Serum or Plasm a creatinine [mass/volume ] in serum or plasma 0.7 mg/dL low: 0.72mg /dLhig h: 1.25mg /dL low Creat inine 0.70 (L) 0.72 - 1.25 mg/dL 06/10 5:25 AM [employer] ATORY Not Available Not Available 06/28/2024 17:40:42 06/10/1906/10/2024 [employer] 2000 panel - Serum or Plasm a glomerular filtration rate/1.73 sq M.predicted [volume rate/area] in serum, plasma or blood by creatinine-b ased formula (CKD-epi 2020) text: >=90 mL/min /1.73 m2 eGFR by CKD-E PI >90 >=90 mL/mi n/1.7 3 m2 06/10 5:25 AM [employer] ATORY Not Available Not Available 06/28/2024 17:40:42 06/10/19 25 06/10/2024 [employer]ic 2000 panel - Serum or Plasm a interpretati on and review of laboratory results Abnorm al Not Available Not Available 17:40:42 06/30/19 25 06/30/2024 Compr ehens chetna metab olic 1999 panel - Serum or Plasm a sodium [moles/volum e] in serum or plasma 137 mmol/ L low: 136mmo l/Lhig h: 145mmo l/L SODIU M 137 136 - 145 mmol/ L 06/30 10:47 PM LABORATORY IMMUNOLOGIST [employer] [facility] Not Available Not Available 09/14/2024 11:35:33 06/30/19 25 06/30/2024 Compr ehens chetna metab ic 1999 panel - Serum or Plasm a potassium [moles/volum e] in serum or plasma 4 mmol/ L low: 3.4mmo l/Lhig h: 5.1mmo l/L POTAS SIUM 4.0 3.4 - 5.1 mmol/ L 06/30 10:47 PM LABORATORY IMMUNOLOGIST [employer] [facility] Not Available Not Available 09/14/2024 11:35:33 06/30/19 25 06/30/2024 Compr ehens chetna metab [facility] 1999 panel - Serum or Plasm a chloride 98 mmol/ L low: 98mmol /Lhigh : 107mmo l/L CHLOR KIERA 98 98 - 107 mmol/ L 06/30 10:47 PM LABORATORY IMMUNOLOGIST [employer] [facility] Not Available Not Available 09/14/2024 11:35:33 06/30/19 25 06/30/2024 Compr ehens chetna metab [facility] 1999 panel - Serum or Plasm a carbon dioxide, total [moles/volum e] in serum or plasma 25 mmol/ L low: 22mmol /Lhigh : 29mmol /L CO2 25 22 - 29 mmol/ L 06/30 10:47 PM LABORATORY IMMUNOLOGIST [employer] [facility] Not Available Not Available 09/14/2024 11:35:33 06/30/19 25 06/30/2024 Compr ehens chetna metab olic 1999 panel - Serum or Plasm a calcium 9.8 mg/dL low: 8.6mg/ dLhigh : 10.4mg /dL CALCI UM 9.8 8.6 - 10.4 mg/dL 06/30 10:47 PM [employer] [facility] Not Available Not Available 09/14/2024 11:35:33 06/30/19 25 06/30/2024 Compr ehens chetna metab olic 1999 panel - Serum or Plasm a BUN 17 mg/dL low: 6mg/dL high: 20mg/d L BUN 17 6 - 20 mg/dL 06/30 10:47 PM [facility]ATORY [facility]MMUNOLOGIST [facility] Not Available Not Available 09/14/2024 11:35:33 06/30/19 25 06/30/2024 Compr ehens chetna metab olic 1999 panel - Serum or Plasm a creatinine [mass/volume ] in serum or plasma 0.78 mg/dL low: 0.67mg /dLhig h: 1.17mg /dL CREAT ININE 0.78 0.67 - 1.17 mg/dL 06/30 10:47 PM LABORATORY IMMUNOLOGIST [employer] [facility] [place] [facility] Not Available Not Available 09/14/2024 11:35:33 06/30/19 25 06/30/2024 Compr ehens chetna metab olic 1999 panel - Serum or Plasm a glucose [mass/volume ] in serum or plasma 450 mg/dL low: 74mg/d Lhigh: 99mg/d L critical high GLUCO SE 450 (HH) 74 - 99 mg/dL 06/30 10:47 PM [facility] Not Available Not Available 09/14/2024 11:35:33 06/30/19 25 06/30/2024 Compr ehens chetna metab olic 1999 panel - Serum or Plasm a total protein 7 g/dL low: 6.3g/d Lhigh: 8.7g/d L TOTAL PROTE IN 7.0 6.3 - 8.7 g/dL 06/30 10:47 PM [facility] Not Available Not Available 09/14/2024 11:35:33 06/30/19 25 06/30/2024 Compr ehens chetna metab olic 2000 panel - Serum or Plasm a albumin 3.8 g/dL low: 3.5g/d Lhigh: 5.2g/d L ALBUM IN 3.8 3.5 - 5.2 g/dL 06/30 10:47 PM [facility] Not Available Not Available 09/14/2024 11:35:33 06/30/19 25 06/30/2024 Compr ehens chetna metab olic 1999 panel - Serum or Plasm a bilirubin total 4 mg/dL low: 0.3mg/ dLhigh : 1.2mg/ dL high BILIR UBIN TOTAL 4.0 (H) 0.3 - 1.2 mg/dL 06/30 10:47 PM [employer] [facility] Not Available Not Available 09/14/2024 11:35:33 06/30/19 25 06/30/2024 Compr ehens chetna metab ic 1999 panel - Serum or Plasm a alkaline phosphatase 94 U/L low: 40U/Lh igh: 150U/L ALKAL INE PHOSP HATAS E 94 40 - 150 U/L 06/30 10:47 PM LABORATORY IMMUNOLOGIST [employer] [facility] Not Available Not Available 09/14/2024 11:35:33 06/30/19 25 06/30/2024 Compr ehens chetna metab ic 1999 panel - Serum or Plasm a AST 24 U/L low: 0U/Lhi gh: 41U/L AST 24 0 - 41 U/L 06/30 10:47 PM [employer] [facility] Not Available Not Available 09/14/2024 11:35:33 06/30/19 25 06/30/2024 Compr ehens chetna metab olic 1999 panel - Serum or Plasm a alanine aminotransfe rase [enzymatic activity/vol ume] in blood 13 U/L low: 0U/Lhi gh: 41U/L ALT 13 0 - 41 U/L 06/30 10:47 PM [employer] [facility] Not Available Not Available 09/14/2024 11:35:33 06/30/19 25 06/30/2024 Compr ehens chetna metab olic 1999 panel - Serum or Plasm a glomerular filtration rate [volume rate/area] in serum, plasma or blood by creatinine-b ased formula (CKD-epi 2020)/1.73 sq M text: >=60 mL/min /1.73 sq meter GFR >60 >=60 mL/mi n/1.7 3 sq meter 06/30 10:47 PM LABORATORY IMMUNOLOGIST [employer] [facility] Not Available Not Available 09/14/2024 11:35:33 06/30/19 25 06/30/2024 Compr ehens chetna metab olic 1999 panel - Serum or Plasm a anion gap 14 mmol/ L low: 8mmol/ Lhigh: 16mmol /L ANION GAP 14 8 - 16 mmol/ L 06/30 10:47 PM LABORATORY IMMUNOLOGIST [employer] [facility] Not Available Not Available 09/14/2024 11:35:33 06/30/19 25 06/30/2024 Compr ens chetna metab olic 1999 panel - Serum or Plasm a interpretati on and review of laboratory results Abnorm al Not Available Not Available 11:35:33 06/30/19 25 06/30/2024 CBC W Auto Diffe [employer]i al panel - Blood leukocytes [#/volume] in blood 5.3 K/uL low: 4K/uLh igh: 9.8K/u L WBC 5.3 4.0 - 9.8 K/uL 06/30 6:48 PM [employer] [facility] Not Available Not Available 09/14/2024 11:35:33 06/30/19 25 06/30/2024 CBC W Auto Diffe renti al panel - Blood RBC 5.86 text: 4.50 - 5.40 M/uL high RBC 5.86 (H) 4.50 - 5.40 M/uL 06/30 6:48 PM [employer] [facility] Not Available Not Available 09/14/2024 11:35:33 06/30/19 25 06/30/2024 CBC W Auto Diffe renti al panel - Blood hemoglobin 16.8 g/dL low: 13.6g/ dLhigh : 16.5g/ dL high HEMOG LOBIN 16.8 (H) 13.6 - 16.5 g/dL 06/30 6:48 PM [facility] Not Available Not Available 09/14/2024 11:35:33 06/30/19 25 06/30/2024 CBC W Auto Diffe renti al panel - Blood hematocrit [volume fraction] of blood by automated count 48.6 % low: 40%hig h: 48% high HEMAT OCRIT 48.6 (H) 40.0 - 48.0 % 06/30 6:48 PM LABORATORY IMMUNOLOGIST [facility] Not Available Not Available 09/14/2024 11:35:33 06/30/19 25 06/30/2024 CBC W Auto Diffe renti al panel - Blood MCV 82.9 fL low: 82fLhi gh: 99fL MCV 82.9 82.0 - 99.0 fL 06/30 6:48 PM [employer] [facility] Not Available Not Available 09/14/2024 11:35:33 06/30/19 25 06/30/2024 CBC W Auto Diffe renti al panel - Blood MCH 28.7 pg low: 27.2pg high: 32.6pg MCH 28.7 27.2 - 32.6 pg 06/30 6:48 PM LABORATORY IMMUNOLOGIST [facility] Not Available Not Available 09/14/2024 11:35:33 06/30/19 25 06/30/2024 CBC W Auto Diffe renti al panel - Blood MCHC 34.6 g/dL low: 31.5g/ dLhigh : 35.5g/ dL MCHC 34.6 31.5 - 35.5 g/dL 06/30 6:48 PM [facility] Not Available Not Available 09/14/2024 11:35:33 06/30/19 25 06/30/2024 CBC W Auto Diffe renti al panel - Blood RDW 16.9 % low: 11.5%h igh: 14.5% high RDW 16.9 (H) 11.5 - 14.5 % 06/30 6:48 PM LABORATORY IMMUNOLOGIST [employer] [facility] Not Available Not Available 09/14/2024 11:35:33 06/30/19 25 06/30/2024 CBC W Auto Diffe renti al panel - Blood RDW-stdev 46.3 fL low: 37.1fL high: 48.7fL RDW-S TDEV 46.3 37.1 - 48.7 fL 06/30 6:48 PM [facility] Not Available Not Available 09/14/2024 11:35:33 06/30/19 25 06/30/2024 CBC W Auto Diffe renti al panel - Blood platelets [#/volume] in blood by automated count 78 K/uL low: 140K/u Lhigh: 350K/u L low PLATE LETS 78 (L) 140 - 350 K/uL 06/30 6:48 PM [facility] Not Available Not Available 09/14/2024 11:35:33 06/30/19 25 06/30/2024 CBC W Auto Diffe renti al panel - Blood MPV MPV 06/30 6:48 PM [facility] Not Available 09/14/2024 11:35:33 06/30/19 25 06/30/2024 CBC W Auto Diffe renti al panel - Blood neutrophils 70 % NEUTR OPHIL S 70 % 06/30 6:48 PM [facility] Not Available Not Available 09/14/2024 11:35:33 06/30/19 25 06/30/2024 CBC W Auto Diffe renti al panel - Blood lymphocytes/ leukocytes in blood by automated count 16 % LYMPH OCYTE S 16 % 06/30 6:48 PM [facility] Not Available Not Available 09/14/2024 11:35:33 06/30/19 25 06/30/2024 CBC W Auto Diffe renti al panel - Blood monocytes 9 % MONOC YTES 9 % 06/30 6:48 PM [facility] Not Available Not Available 09/14/2024 11:35:33 06/30/19 25 06/30/2024 CBC W Auto Diffe renti al panel - Blood eosinophils 3 % EOSIN OPHIL S 3 % 06/30 6:48 PM [facility] Not Available Not Available 09/14/2024 11:35:33 06/30/19 25 06/30/2024 CBC W Auto Diffe renti al panel - Blood basophils 1 % BASOP HILS 1 % 06/30 6:48 PM [facility] Not Available Not Available 09/14/2024 11:35:33 06/30/19 25 06/30/2024 CBC W Auto Diffe renti al panel - Blood immature granulocytes 1 % IMMAT URE GRANU LOCYT ES 1 % 06/30 6:48 PM [facility] Not Available Not Available 09/14/2024 11:35:33 06/30/19 25 06/30/2024 CBC W Auto Diffe renti al panel - Blood neutrophils [#/volume] in blood by automated count 3.73 K/uL low: 1.9K/u Lhigh: 7K/uL NEUTR OPHIL ABSOL SUN'AQ 3.73 1.90 - 7.00 K/uL 06/30 6:48 PM [facility] Not Available Not Available 09/14/2024 11:35:33 06/30/19 25 06/30/2024 CBC W Auto Diffe renti al panel - Blood lymphocyte absolute 0.86 K/uL low: 0.7K/u Lhigh: 4.5K/u L LYMPH OCYTE ABSOL SUN'AQ 0.86 0.70 - 4.50 K/uL 06/30 6:48 PM [facility] Not Available Not Available 09/14/2024 11:35:33 06/30/19 25 06/30/2024 CBC W Auto Diffe renti al panel - Blood monocyte absolute 0.47 K/uL low: 0.1K/u Lhigh: 1.3K/u L MONOC YTE ABSOL SUN'AQ 0.47 0.10 - 1.30 K/uL 06/30 6:48 PM [facility] Not [facility] Not Available 09/14/2024 11:35:33 06/30/19 25 06/30/2024 CBC W Auto Diffe renti al panel - Blood eosinophil absolute 0.18 K/uL low: 0K/uLh igh: 0.7K/u L EOSIN OPHIL ABSOL SUN'AQ 0.18 0.00 - 0.70 K/uL 06/30 6:48 PM [facility]MMUNOLOG[facility] Not Available Not Available 09/14/2024 11:35:33 06/30/19 25 06/30/2024 CBC W Auto Diffe renti al panel - Blood basophils absolute 0.07 K/uL low: 0K/uLh igh: 0.2K/u L BASOP HILS ABSOL SUN'AQ 0.07 0.00 - 0.20 K/uL 06/30 6:48 PM [facility]MMUNOLOG[facility] Not Available Not Available 09/14/2024 11:35:33 06/30/19 25 06/30/2024 CBC W Auto Diffe renti al panel - Blood immature granulocytes absolute 0.03 K/uL low: 0K/uLh igh: 0.03K/ uL IMMAT URE GRANU LOCYT ES ABSOL SUN'AQ 0.03 0.00 - 0.03 K/uL 06/30 6:48 PM [facility] Not Available Not Available 09/14/2024 11:35:33 06/30/19 25 06/30/2024 CBC W Auto Diffe renti al panel - Blood interpretati on and review of laboratory results Abnorm al Not Available Not Available 11:35:33 04/17/20 24 04/16/2024 MRI, lumba r spine , w/o contr ast No observ ation record ed. [facility] [address], [place], [address], 04/18/2024 12:31:37 06/08/19 25 06/08/2024 XR, chest No observ ation record ed. [facility] [address] [place], [address], 06/08/2024 08:55:38 07/28/19 25 07/27/2024 XR, skull No observ ation record ed. [facility] [address] [place], [address], 07/28/2024 09:56:58 09/14/19 25 09/12/2024 XR, lumba r spine No observ ation record ed. [facility] [address] [place], [address], 09/13/2024 10:31:20 Result Notes None recorded. Problems Name Problem SNOMED Code Status Onset Date Resolution Date Notes Provider Name and Address Organization Details Recorded Time Diabetes mellitus 23214080 Active 2018 [facility] [place], [place] [facility] 10:51:15 Liver finding 284118156 Active 2018 [facility] [place] [facility] 10:51:15 Hyperglycem ia due to type 2 diabetes mellitus 5651161887535 09 Active [facility] [place] [facility] 4 09:09:59 Type 2 diabetes mellitus in obese 36040534 Active [facility] [place] [facility] 10:51:15 Bacteremia 6857063 [place] [facility] [place] [facility] 10:51:15 Gastroesoph ageal reflux disease 012379795 [place] [facility] [place] [facility] 10:51:15 Abscess 661263777 [place] [facility] [place] [facility] 10:51:15 Backache 779203894 [place] [facility] [place] [facility] 10:51:15 Hepatic failure 26346029 Active [facility] Farley, [facility] 1 10:51:15 Problem Notes None recorded. Procedures Surgical History Date Name Laterality Status Provider Name and Address Organization Details Recorded Time 6 colonoscopy completed [facility] - [facility] 11/15/2021 15:39:15 Imaging Results None recorded. Procedure Notes None recorded. Medical Equipment None Reported. Allergies Allergen ID Allergen Name Allergen Category Reaction Reaction Severity Criticality Documentation Date Start Date Code Code System Note Provider Name and Address Organization Details Recorded Time 534740 Product containin g penicilli n (product) medicatio n Not available Not available Not available 12/16/2017 74604 8001 SNOMED BEBO Andino, [facility] 8 11:58:06 416911 Substance with sulfonami de structure and antibacte rial mechanism of action (substanc e) medicatio n Not available Not available Not available 12/16/2017 02462 8003 SNOMED Julia [facility]BO Guerrier, [facility] 8 11:58:12 674756 Nexium medicatio n Not available Not available Not available 12/16/2017 90446 9 RxNorm Julia [facility] Guerrier, [facility] 8 11:58:19 178285 erythromy roxana medicatio n Not available Not available Not available 12/16/2017 4053 RxNorm Julia FareedBEBO tiwari [facility] 8 11:58:25 377693 Iodinated contrast media (substanc e) medicatio n Not available Not available Not available 12/16/2017 56127 2004 SNOMED Julia [facility] Guerrier, [facility] 8 11:58:35 985085 ciproflox acin medicatio n Not available Not available Not available 12/16/2017 2551 RxBetzaidajodi Manleydaniela BustamanteFareed BEBO lalita, [facility] 8 11:58:48 311842 Azactam medicatio n Not available Not available Not available 12/16/2017 15665 1 RxNorm Juliameliza Bustamanteries BE[facility] lalita [facility] 8 11:58:56 478885 aztreonam medicatio n Not available Not available Not available 12/16/2017 1272 RxNorm Julia Guerrier [place] null, [place] [facility] 8 11:59:03 428680 octreotid e Not available Not available Not available Not available 12/16/2017 7617 RxNorm [facility] [place], [place] [facility] 8 11:59:10 098938 duloxetin e medicatio n Not available Not available Not available 12/16/2017 21847 RxNorm Julia Guerrier [place], [place] [facility] 8 11:59:19 013905 oxycodone medicatio n other Not available Not available 03/19/2021 7804 RxNorm MENTA L STATU S Amanda Amin MA null, [place] - [facility] 16:02:30 Medications Name Sig Start [...] completed Not Available Not Available Not Available [employer] Ultra Test strips USE FOR TESTING BEFORE [...] blood by Pulse oximetry Heart rate Systolic And Diastolic Provider Name and Address Organization Details Last Updated DateTime 5 171.45 cm 33.9 kg/m2 98450.3 2 g 95 % 95 % 88 /min 120/88 mm[Hg] Amanda Amin MA [facility] 5 17:59:35 Date Recorded Body height Body mass index (BMI) Body weight Oxygen saturation Oxygen saturation in Arterial blood by Pulse oximetry Heart rate Systolic And Diastolic Provider Name and Address Organization Details Last Updated DateTime 5 171.45 cm 34.4 kg/m2 039071. 1 g 97 % 97 % 87 /min 112/78 mm[Hg] Amanda Amin MA [facility] 5 10:09:55 Date Recorded Systolic And Diastolic Provider Name and Address Organization Details Last Updated DateTime 09/27/2024 132/80 mm[Hg] Janeth Pavon PA-C Attn: Accounting [facility], [place], [address], [facility] 09/27/2024 12:35:01 Date Recorded Body height Body mass index (BMI) Body weight Oxygen saturation Oxygen saturation in Arterial blood by Pulse oximetry Heart rate Provider Name and Address Organization Details Last Updated DateTime 5 171.45 cm 34.8 kg/m2 216651. 38 g 97 % 97 % 80 /min Ana Rosa Alexandra [facility] 5 12:17:19 Date Recorded Body height Body mass index (BMI) Body weight Oxygen saturation Oxygen saturation in Arterial blood by Pulse oximetry Heart rate Systolic And Diastolic Provider Name and Address Organization Details Last Updated DateTime 4 171.45 cm 34.5 kg/m2 620481. 9 g 95 % 95 % 102 /min 149/91 mm[Hg] Karina Alvarez MA [facility] 4 10:09:39 Social History Question Answer Notes LastModified by Organizat ion Details LastModified Time Tobacco Smoking Status Former Smoker Julia Guerrier MA null, [facility] 12/16/2017 12:02:47 What Is Your Level Of [...] anxious, or unable to sleep at night)? [id number] [email or web address] Information not available 08/21/2021 Family History [...] Skin Problems N Anemia N Heart Attack (CA) N Anxiety Disorder Y Diabetes Y Muscle, [...] mcg/0.3 mL dose 12/08/2020 completed Not Available [facility] 4 10:49:05 COVID-19, mRNA, LNP-S, PF, 30 mcg/0.3 mL dose 12/29/2020 completed Not Available [facility] 4 10:49:05 Hep A-Hep B 09/10/2015 completed [facility] [place], [place] [facility] 07/20/2023 09:11:13 Past Encounters Encounter ID Performer Location Encounter Start Date Encounter Closed Date Diagnosis/Indication Diagnosis SNOMED-CT Code Diagnosis ICD10 Code Diagnosis Note [id number] Kris Mckeon MD [facility] [address] [place] [address] 12/16/2017 11:36:06 12/16/2017 12:52:59 Metabolic dysfunction-associate d steatohepatitis 093418986 K75.81 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 632926099 I85.10 Type 2 obdulio betes mellitus 96810435 E11.9 [id number] Kris Mckeon MD [facility] [address] [place] [address] 12/23/2017 11:30:06 12/23/2017 12:45:09 Diabetes mellitus 75644496 E11.69 Cholecystitis 56365769 K 80.01 End stage liver disease 478103755 K72.90 [id number] Janeth Pavon PA-C [facility] [address] [place] [address] 02/11/2018 15:41:09 02/11/2018 16:48:42 Generalized anxiety disorder 82446011 F41.1 Uncontroll ed type 2 diabetes mellitus 660790452 E11.65 [id number] Janeth Pavon PA-C [facility] [address] [place] [address] 03/02/2018 15:31:55 03/02/2018 16:08:34 End stage liver disease 020311921 K72.00 Uncontroll ed type 2 diabetes mellitus 998763826 E11.65 [id number] Janeth Pavon PA-C [facility] [address] [place] [address] 05/13/2018 15:37:41 05/13/2018 17:17:50 End stage liver disease 130411544 K72.00 [id number] TOM Kunz [facility] [address] [place] [address] 05/25/2018 11:13:32 05/25/2018 11:43:34 End stage liver disease 083997522 K72.00 Dyspnea on exertion 6084 5006 R06.09 Tachycardia 5182908 R00. 0 On examina tion - deep seated pustules 393724551 L08.9 [id number] TOM Kunz [address] [place] [address] 06/14/2018 10:19:40 06/14/2018 11:01:20 Diabetes mellitus 17229042 E11.69 End stage liver disease 615305150 K72.00 Lumbar radiculopathy 128 348708 M54.16 [id number] Janeth Pavon PA-C [facility] [address] [place] [address] 02/09/2019 14:30:46 02/09/2019 15:35:07 Diabetes mellitus 07045976 E11.69 Increased frequency of urination 474269450 R35.0 [id number] Janeth Pavon PA-C [facility] [address] [place] [address] 03/22/2019 15:44:00 03/22/2019 17:48:00 Anemia due to chronic blood loss 832543930 D50.0 Metabolic dysfunction-associate d steatohepatitis 952552914 K75.81 Type 2 obdulio betes mellitus without complication 974397556 E11.9 Low back pain 204736595 M54.5 Increased frequency of urination 289260388 R35.0 Hepatic encephalopathy 54482496 K72.90 [id number] Janeth Pavon PA-C [facility] [address] [place] [address] 08/01/2019 11:23:53 08/01/2019 12:28:44 Cirrhosis of liver 16306704 K74.69 [id number] Janeth Pavon PA-C [facility] [address] [place] [address] 08/17/2019 09:24:17 08/24/2019 11:34:51 Diabetes mellitus 47356748 E11.69 Lumbar radiculopathy 128 641047 M54.16 [id number] Janeth Pavon PA-C [facility] [address] [place] [address] 08/31/2019 14:50:58 09/02/2019 14:48:06 Acute bronchitis with bronchospasm 30070746 J20.9 [id number] Janeth Pavon PA-C [facility] [address] [place] [address] 12/19/2019 09:34:48 12/19/2019 15:21:39 [id number] Janeth Pavon PA-C [facility] [address] [place] [address] 12/23/2019 09:37:23 12/23/2019 15:52:54 Diabetes mellitus 79028551 E11.69 Obstructiv e sleep apnea syndrome 18310973 G47.33 End stage liver disease 499356743 K72.00 Thoracic back pain 30870 8004 M54.6 [id number] Janeth Pavon PA-C [facility] [address] [place] [address] 01/25/2020 09:34:10 01/25/2020 15:21:39 Lumbar radiculopathy 790595811 M54.16 [id number] Kris Mckeon MD [facility] [address] [place] [address] 02/23/2020 09:42:16 02/23/2020 16:52:05 Diabetes mellitus 07995889 E11.69 Renal mass 744962032 N28 .89 Neoplasm of kidney 92333 0001 D49.614 [id number] Janeth Pavon PA-C [facility] [address] [place] [address] 06/13/2020 11:39:18 06/14/2020 10:53:35 Metabolic dysfunction-associate d steatohepatitis 959297037 K75.81 Uncontroll ed type 2 diabetes mellitus 110215934 E11.65 [id number] Kris Mckeon MD [facility] [address] [place] [address] 07/25/2020 11:21:27 07/25/2020 14:13:47 Long-term drug therapy 843945221 Z79.899 Gastroesop hageal reflux disease without esophagitis 456242645 K21.9 Hematochezia 374943006 K 92.1 Nausea and vomiting 1693 2000 R11.2 Pityriasis rosea 2893977 4 L42 Type 2 obdulio betes mellitus 73053641 E11.9 [id number] Kris Mckeon MD [facility] [address] [place] [address] 07/27/2020 10:05:37 07/31/2020 10:18:42 Uncontrolled type 2 diabetes mellitus 607274287 E11.65 [id number] Kris Mckeon MD [facility] [address] [place] [address] 2020 11:20:02 09/08/2020 12:42:46 Tinea corporis 75675453 B35.4 Abscess 467068177 L02.91 [id number] Kris Mckeon MD [facility] [address] [place] [address] 11/16/2020 10:47:40 11/16/2020 11:46:55 Exanthem due to herpes zoster 368905518 B02.8 [id number] Kris Mckeon MD [facility] [address] [place] [address] 06/26/2021 15:54:46 06/26/2021 17:00:08 Long-term drug therapy 410781846 Z79.899 Low back pain 733978498 M54.51 Body mass index 30+ - obesity 491257223 Z68.39 Screening for malignant neoplasm of prostate 788311598 Z12.5 [id number] Kris Mckeon MD [facility] [address] [place] [address] 08/21/2021 11:08:46 08/21/2021 12:35:42 Adult health examination 930758418 Z00.00 Backache 299672482 M54.9 [id number] Janeth Pavon PA-C [facility] [address] [place] [address] 11/15/2021 15:33:53 11/18/2021 10:03:54 Hyperglycemia due to type 2 diabetes mellitus 0443811874 03411 E11.65 Type 2 obdulio betes mellitus 72631722 E11.9 Morbid obesity 181317966 E66.01 End stage liver disease 990447358 K72.00 [id number] Janeth Pavon PA-C [facility] [address] [place] [address] 05/28/2022 16:19:55 05/28/2022 17:17:07 Uncontrolled type 2 diabetes mellitus 379193837 E11.65 Chronic back pain 283623 002 M54.05 Overweight 542169999 E66 .3 Urinary incontinence 165 498697 R32 Generalize d anxiety disorder 07686534 F41.1 Backache 274973908 M54.9 [id number] Kris Mckeon MD [facility] [address] [place] [address] 10/27/2022 14:34:16 10/28/2022 10:40:36 Long-term drug therapy 596186782 Z79.899 Lumbar radiculopathy 128 134328 M54.16 Persistent cough 9019100 02 R05.3 Daytime somnolence 14736 84145 00 R40.0 Type 2 obdulio betes mellitus 43754847 E11.9 Iron defic iency anemia 69379476 D50.8 [id number] Kris Mckeon MD [facility] [address] [place] [address] 12/29/2022 15:17:34 12/30/2022 09:55:18 Lumbar radiculopathy 903770366 M54.16 Overweight 325092279 E66 .3 [id number] Janeth Pavon PA-C [facility] [address] [place] [address] 02/24/2023 18:01:59 03/02/2023 15:11:10 Persistent cough 864872031 R05.3 Essential hypertension 44405297 I10 Overweight 008089619 E66 .3 [id number] Janeth Pavon PA-C [facility] [address] [place] [address] 05/14/2023 11:38:36 05/15/2023 11:58:34 Type 2 diabetes mellitus 96852191 E11.9 Mixed anxi ety and depressive disorder 505238309 F41.8 Overweight 608595422 E66 .3 [id number] Janeth Pavon PA-C [facility] [address] [place] [address] 06/04/2023 10:52:25 06/09/2023 14:14:44 Abdominal pain 96503867 R10.13 Cirrhosis of liver 007 K74.69 Overweight 230698571 E66 .3 [id number] Janeth Pavon PA-C [facility] [address] [place] [address] 07/02/2023 12:08:49 07/03/2023 11:31:17 Type 2 diabetes mellitus 16160680 E11.9 Atypical chest pain 1025 38814 R07.89 Overweight 157224028 E66 .3 [id number] Janeth Pavon PA-C [facility] [address] [place] [address] 08/05/2023 15:58:27 08/21/2023 14:53:44 Uncontrolled type 2 diabetes mellitus 850774477 E11.65 Overweight 994508212 E66 .3 [id number] Janeth Pvaon PA-C [facility] [address] [place] [address] 08/13/2023 14:55:22 08/20/2023 15:19:06 Lumbar radiculopathy 676426561 M54.16 [id number] Kris Mckeon MD [facility] [address] [place] [address] 09/17/2023 08:59:31 09/18/2023 13:42:26 Atopic dermatitis 36826703 L20.9 -Patient presentati on consistent with atopic dermatitis .-Patient reports rash has improved with triamcinol one use. Patient to continue triamcinol one for another 7 days BID PRN.-MANAGER SHIFT ordering eucerin lotion for patient to use daily PRN.-MANAGER SHIFT provided atopic dermatitis care instructio ns. Type 2 obdulio betes mellitus 31950364 E11.21 -Uncontrol led.-Last A1c: 12 (05/14/23)- Continue current therapy-Jamie werner would like [facility]. MANAGER SHIFT to place orders.-MANAGER SHIFT discussed diet and lifestyle changes with the patient at length. MANAGER SHIFT provided numerous diabetes care instructio ns and discussed with the patient.-R ecommended diabetic diet-Educa manny to check feet daily [id number] Kris Mckeon MD [facility] [address] [place] [address] 10/16/2023 11:23:31 10/17/2023 06:49:47 Long-term drug therapy 929231535 Z79.899 Diabetes mellitus 833739 09 E11.69 Overweight 631862458 E66 .3 [id number] Janeth Pavon PA-C [facility] [address] [place] [address] 01/14/2024 09:33:39 01/19/2024 12:05:45 Long-term drug therapy 351821409 Z79.899 Type 2 obdulio betes mellitus 63030324 E11.9 Uncontroll ed type 2 diabetes mellitus 548211639 E11.65 ER now Overweight 700347451 E66 .3 [id number] Janeth Pavon PA-C [facility] [address] [place] [address] 01/26/2024 10:49:29 02/03/2024 14:35:51 Cirrhosis of liver 66431618 K74.69 Type 2 obdulio betes mellitus 36430348 E11.9 Adult heal th examination 262747433 Z00.00 Overweight 015375593 E66 .3 [id number] Kris Mckeon MD [facility] [address] [place] [address] 03/03/2024 10:44:06 03/04/2024 13:36:40 Chronic low back pain 565835888 M54.59 Morbid obesity 400414793 E66.01 [id number] Kris Mckeon MD [facility] [address] [place] [address] 03/08/2024 14:46:39 03/09/2024 16:00:13 Seizure 34126904 G40.89 Uncontroll ed type 2 diabetes mellitus 147716910 E11.65 Dissociati ve convulsions 633515407 F44.5 Overweight 777573542 E66 .3 [id number] Kris Mckeon MD [facility] [address] [place] [address] 03/23/2024 10:36:19 03/28/2024 10:16:17 Lumbar radiculopathy 617929976 M54.16 Uncontroll ed type 2 diabetes mellitus 341827895 E11.65 Overweight 777908436 E66 .3 [id number] Kris Mckeon MD [facility] [address] [place] [address] 04/06/2024 09:53:53 04/06/2024 16:23:24 Dysuria 87991132 R30.0 Uncontroll ed type 2 diabetes mellitus 245853569 E11.65 Generalize d anxiety disorder 06600080 F41.1 Overweight 671911708 E66 .3 [id number] Kris Mckeon MD [facility] [address] [place] [address] 06/28/2024 17:38:46 06/29/2024 10:11:55 Hemoptysis 78190102 R04.2 Functional gait abnormality 9360564948 9103 R26.0 [id number] Kris Mckeon MD [facility] [address] [place] [address] 09/20/2024 09:35:33 09/21/2024 11:09:53 Uncontrolled type 2 diabetes mellitus 363238513 E11.65 patient to follow up with his endo re U500 History of epilepsy 1614 86313 Z86.69 Obese class I 9392350918 41400 E66.676 [id number] Kris Mckeon MD [facility] [address] [place] [address] 09/27/2024 11:47:31 09/27/2024 12:47:41 Therapeutic drug monitoring assay 05454707 Z51.81 [id number] Kris Mckeon MD [facility] [address] [place] [address] 09/27/2024 11:51:20 09/27/2024 12:36:14 Cervical radiculopathy 65923136 M54.12 Uncontroll ed type 2 diabetes mellitus 153337178 E11.65 Health Concerns Section Related Observation LastModified by Organization Detai ls LastModified Time None Recorded Concern Status LastModified by Organization Details LastModified Time None Recorded Advance Directives Directive None Recorded Payers Encounter Date Sequence Insurance Name Policy Number Policy Cordero Covered Member ID Cordero Member ID Guarantor Name 04/06/2024 1 [employer] [place] ON [place] 2020 (MEDICAID REPLACEMENT - HMO) Camilo Curry [id number] Camilo Curry 06/28/2024 1 [employer] [place] REPLACEMENT - [place]MO) Camilo Curry [id number] Camilo Curry 09/20/2024 1 [employer] [place] 2020 [place]PLAC[place] - [place]MO) Camilo Curry [id number] Camilo Curry 09/27/2024 PENDING Camilo Curry [id number] [id number] Camilo Curry 09/27/2024 1 [employer] [place] 2020 ([place]ICAID REPLACEMENT - HMO) Camilo Curry [id number] Camilo Curry Notes Date Note Type Note Provider Name and Address Organization Details Recorded Time 04/06/2024 text/html has burning urination for a week... every hour frequency...says he has been drinking nikhil justice vs nausea...also needs something for sedation for MRI Janeth Pavon PA-C Attn: Accounting, [address] [place], [address], [facility] 04/06/2024 10:29:01 06/28/2024 text/html was in CHF and pneumonia at [facility]..now is also vomiting brown like blood on occasion..hx of varices..also starting to lose balance again and also having pain around back to mid line..his balance feels like he leans over progressively as he walks and loses his balance... Janeth Pavon PA-C Attn: Accounting, [address] [place], [address], [facility] 06/28/2024 18:35:45 09/20/2024 text/html started off a little unbalanced..was at a yard sale and suddenly seized..reports multiples..did not go to ER..has neurology coming up in october...endo has him on U500 again..was making him sick so he stopped due to side effects took it right before he went yard saling..after that he stopped again..then restarted took one use and felt like he was going seizure again so he stopped..[employer] has not returned his calls yet.. Janeth Pavon PA-C Attn: Accounting, [address] [place], [address], [facility] 09/20/2024 10:41:20 09/27/2024 text/html was walking backwards with a rolling trash can..tripped and fell backwards and twisted forward to land on left shoulder..now has tingling in left last two fingers..also when he landed he injured his ribs..also says he and his endo no longer get along and wants a new one. Janeth Pavon PA-C Attn: Accounting[address] [place], [address], [facility] 09/27/2024 12:36:11
== END 2024-09-27 13:52 | disposition home or self-care (01) ==
PROVIDERS: PCP Physician Assistant; Visit Provider Physician Assistant
DX: M54.12 Radiculopathy, cervical region (principal); M53.82 Other specified dorsopathies, cervical region
CPT/HCPCS: 72040

== ENCOUNTER 2024-12-13 07:10 | Emergency (ER) | payer OTHER, SELFPAY ==
--- NOTE | 2024-12-13 | CONSULT_PTH ---
PATIENT: Camilo Curry Jr. LOC: [facility] U#:[id number] AGE/SX: 54/M ROOM: RE12/13/[address]: Jesus Paz MD : 1970 BED: DIS: 12/13/2024 SPEC #: [id number] RECD: 12/13/24 08:29 STATUS: KARINA REQ #: [id number] PAXTON: 12/13/24 00:[address]: Jesus Paz DEPT: [facility] Consult RECD BY: Mary Grace Muñoz MLT, ([facility]) ENTERED: 12/13/24 08:29 SP TYPE: Consult OTHR DR: Braydon Pavon, PA Tissues: A - Peripheral Smear Procedures: Hematology Consult
--- NOTE | ~2024-12-13 | CT_ITS ---
EXAMINATION: CT abdomen pelvis wo con DATE: 12/13/2024 08:06 INDICATION: Abdominal pain TECHNIQUE: Computed tomography (CT) of the abdomen and pelvis was performed without intravenous contr ast. The dose-length product was 778.99 mGy-cm. Automated exposure control and iterative reconstructi on technique were employed. COMPARISON: 11/08/2020 FINDINGS: Lung bases unremarkable. Heart size normal. Small pericardial effusion. No significant pleu ral effusion. Mild thickening of the distal esophagus with paraesophageal varices. Gallstones. Tips s gupta present. Hepatosplenomegaly. Calcified granulomas of the spleen. The pancreas, adrenal glands ar e unremarkable. 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 Trace free fluid in the abdomen and pelvis. No signif icant vascular abnormality. Nonobstructive bowel gas pattern. Mild thickening of the ascending and tr ansverse colon, suspicious for colitis. Mild lower thoracic and lumbar spondylosis. Mild mesenteric a denopathy unchanged. IMPRESSION: 1. Mild thickening of the ascending and transverse colon, suspicious for colitis, most likely infecti ous or inflammatory. 2: Hepatosplenomegaly with tips shunt present. 3: Small pericardial effusion. Small volume of ascites. 4: Gallstones. Possible mild gallbladder wall thickening with trace pericholecystic fluid. Consider c holecystitis in the appropriate clinical setting. Reviewed, dictated and finalized at location A. IMPRESSION: 1. Mild thickening of the ascending and transverse colon, suspicious for coliti s, most likely infectious or inflammatory. 2: Hepatosplenomegaly with tips shunt present. 3: Small pericardial effusion. Small volume of ascites. 4: Gallstones. Possible mild gallbladder wall thickening with trace pericholecy stic fluid. Consider cholecystitis in the appropriate clinical setting.
--- OUTSIDE RECORDS SUMMARY | 2024-12-13 07:13 | XMS_ITS | Continuity of Care Document ---
Author Organization [facility] Address [address] [facility] [address] Phone Care Team Providers Care Em Physician Name Role Phone Roosevelt Mcgee MD Unavailable [...] route every day 5 MG - Active [place] 10 mg-325 mg tablet take 1 tablet [...] Copied on Encounter OFFICE/OUTPA TIENT VISIT, EST [facility], [address], [place], [id number], [place] tel:[phone] [facility] anxiety1 (chief complaint) DM (chief complaint) liver cirrhosis (chief complaint) GERD1 (chief complaint) chronic pain (chief complaint) Type 2 diabetes mellitus without complicationsGenera lized Anxiety DisorderOther cirrhosis of liverChronic pain syndrome 2-201 7 Ever[address]. [address] [place], [id number] , . tel:[phone] Referring Provider: Roosevelt Mcgee [address], [place], [place], [id number]. tel:[phone] Family History Family Member Type Diagnosis Age [...] takes lantus, tradejnta, humalog. His BG is [id number]. Pt sees endo for his DM. Pt [...] Mental Status Date Cognitive Assessment Orientation - [place] ed to time, place, person, situation.
--- OUTSIDE RECORDS SUMMARY | 2024-12-13 07:13 | XMS_ITS | Patient Health Record ---
Author Organization [facility] Address [address] [place] [address] Care Team Providers Care Forming Fixer Name Role Phone VIKTORIA FLORIAN Unavailable [phone] Reason For Referral No Information Plan Of Treatment No Information
--- OUTSIDE RECORDS SUMMARY | 2024-12-13 07:14 | XMS_ITS | Encounter Summary ---
Author Organization [facility] Healthcare Address [address] [place] [address] Care Team Providers Care Hat Maker Name Role Phone Braydon Pavon Primary Care Provider [phone] Nikolay Lancaster MD Unavailable [phone] Simon Lundberg MD Primary Care Provider [phone] Nacho Rodriguez MD Unavailable [phone] Elian Gross MD Unavailable Braydon Pavon Primary Care Provider [phone] Encounter Details Date Type Department Care Team (Late st Contact Info) Description 10/05/2020 Telephone [facility] Imaging [address] [place] [id number] Trice Aldana, RT Social History Tobacco Use [...] on file 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 Gender Identity Male 10/29/2020 12:37 PM CDT Sexual Orientation Straight 10/29/2020 12 :37 PM CDT documented as of this encounter Plan of Treatment Not on file documented as of this encounter Visit Diagnoses Not on filedocumented in this encounter Care Teams Hat Maker Relationship Specialty Start Date End Date Braydon Pavon PA [address] [place] [address] PCP - General Family Practice 05/09/20 05/19/21 Simon Lundberg MD [address] [place] [address] PCP - General Family Medicine 05/20/21 08/22/21 Braydon Pavon PA [address] [place] [address] PCP - General 08/23/21 Nikolay Lancaster MD [address] [place] [address] 05/09/20 05/19/21 [place] [id number] [address] [facility] [email or web address]] [address], [place] [address] Consulting Physician Endocrinology 05/20/21 [place] [id number] [address] [facility] [email or web address]] [address] [address] Consulting Physician Internal Medicine 05/20/21 documented as of this encounter
--- OUTSIDE RECORDS SUMMARY | 2024-12-13 07:14 | XMS_ITS | Clinical Summary ---
Author Organization [facility] Address [address] [place] [address] Care Team Providers Care Cement Handler Name Role Phone Braydon Pavon Primary Care Provider [phone] Source Comments [facility],non-owned Affiliates and Associated Physician Practices is amultiple site organization consisting of ambulatory clinics and hospital sitesin [place], [place], [place] and [place]. This disclosure is being madepursuant to the Care Everywhere program and may not contain all information available regarding this patient. Last updated 18.[facility] [place] Purification Allergies Active Allergy Reactions Criticality Noted Date [...] WC - CONFIRMED WITH [facility] [phone], Reason: Provider adjusted, Reported on 06/09/2024 blood [...] dissolve on the tongue Active HYDROcodone-ac etaminophen ([place]) 10-325 MG tablet Take 1 (one) tablet [...] Insulin Regular Human (HUMULIN R U-500 IKPEN [place]) Inject 200 Units subcutaneously 3 times daily [...] care, and heating? Not very hard 06/08/2024 [facility] [place] of Occupat ional Health - Occupational Stress [...] any time in the past 12 m [facility], were you homeless or living in a detention (including now)? No 06/08/2024 Sex and Gender Information Value Date Recorded Sex Assigned at Not on file Legal Sex Male 8:18 AM METAL PATTERNMAKER APPRENTICE Gender Identity Not on file Sexual Orientation Not on file Last Filed Vital Signs Vital Sign Reading Time Taken Comments Blood Pressure 110/69 06/10/2024 3:45 PM METAL PATTERNMAKER APPRENTICE Pulse 81 06/10/2024 3:45 PM METAL PATTERNMAKER APPRENTICE Temperature 36.8 C (98.2 F) 06/10/2024 3:45 PM METAL PATTERNMAKER APPRENTICE Respiratory Rate 19 06/10/2024 3:45 PM METAL PATTERNMAKER APPRENTICE Oxygen Saturation 94% 06/10/2024 3:45 PM METAL PATTERNMAKER APPRENTICE Inhaled Oxygen Concentration - - Weight 99.8 kg (220 lb) 06/08/2024 3:47 PM METAL PATTERNMAKER APPRENTICE Height 170.2 cm (5' 7) 06/08/2024 3:47 PM METAL PATTERNMAKER APPRENTICE Body Mass Index 34.46 06/08/2024 3:47 PM METAL PATTERNMAKER APPRENTICE Plan of Treatment Health Maintenance Due Date Last Done Comments COLOGUARD (AGES 45-75) - COLON CA SCREENING [address] CT COLONOGRAPHY [...] , 11/23/2023, Additional history exists INFLUENZA VACCINE (#1) 2025 DIABETES - URINE PROTEIN SCREENING 05/31/2025 05/31/2024 DIABETES-SERUM CREATININE 06/10/20252024, 06/09/2024, 06/08/2024, Additional history exists COLON MONITORING 12/17/2030 12/17/2020 COLONOSCOPY - COLON CA SCREENING 12/17/2030 12/17/2020 [...] (CALCIUM TOTAL) AM Draw 06/10/2024 4:45 AM METAL PATTERNMAKER APPRENTICE HEMOGLOBIN A1C Routine 06/09/2024 1:59 AM METAL PATTERNMAKER APPRENTICE from Last 3 Months or Most Recently Relevant to Health Maintenance Results * (ABNORMAL) BASIC METABOLIC PANEL (CALCIUM TOTAL) (06/10/2024 4:45 AM METAL PATTERNMAKER APPRENTICE) Glucose 107(H) 70 - 99 mg/dL 06/10/2024 5:25 AM METAL PATTERNMAKER APPRENTICE [facility] Sodium 139 136 - 145 mmol/L 06/10/2024 5:25 AM METAL PATTERNMAKER APPRENTICE [facility] Potassium 3.4(L) 3.5 - 5.1 mmol/L 06/10/2024 5:25 AM METAL PATTERNMAKER APPRENTICE [facility] Chloride 107 98 - 107 mmol/L 06/10/2024 5:25 AM METAL PATTERNMAKER APPRENTICE [facility] CO2 22 22 - 29 mmol/L 06/10/2024 5:25 AM METAL PATTERNMAKER APPRENTICE [facility] Calcium 8.2(L) 8.4 - 10.4 mg/dL 06/10/2024 5:25 AM [facility] Anion Gap 10 6 - 16 mmol/L 06/10/2024 5:25 AM [facility] BUN 15 7 - 26 mg/dL 06/10/2024 5:25 AM [facility] Creatinine 0.70(L) 0.72 - 1.25 mg/dL 06/10/2024 5:25 AM [facility] eGFR by CKD-EPI >90 >=90 mL/min/1.7 3 m2 06/10/2024 5:25 AM [facility] Blood BLOOD SPECIMEN / Unknown Venipuncture / Unknown 06/10/2024 4:45 AM METAL PATTERNMAKER APPRENTICE 06/10/2024 5:01 AM [facility] Oilmpia No MD LAB - CHEMISTRY ORDERABLES Fi nal Result [facility] [address] [place] [address] * (ABNORMAL) HEMOGLOBIN A1C (06/09/2024 1:59 AM [facility]) Hemoglobin A1c 9.1(H) <5.7 % 06/09/2024 2:28 AM [facility] Estimated Average Glucose 214 mg/dL 06/09/2024 2:28 AM [facility] Blood BLOOD SPECIMEN / Unknown Venipuncture / Unknown 06/09/2024 1:59 AM METAL PATTERNMAKER APPRENTICE 06/09/2024 2:15 AM [facility] Narrative [facility] - 06/09/2024 2:28 AM [facility] HbA1c Interpretation: Normal: < 5.7% [...] LAB - CHEMISTRY ORDERABLES Anastasiya enciso Result [facility] [address] [place] [address] from Last 3 Months or Most Recently Relevant to Health Maintenance Insurance MEDICAID [employer] [facility] [employer] [place] Advance Directives * Full Code (Latest Code Status on File) Date Activated Date Inactivated Comments 06/08/2024 3:48 PM 06/10/2024 7:18 PM Care Teams Cement Handler Relationship Specialty Start Date End Date Braydon Pavon PA [address] [place] [address] PCP - General Physician Replenishment Analyst 3/12/24
--- OUTSIDE RECORDS SUMMARY | 2024-12-13 07:14 | XMS_ITS | Encounter Summary ---
Author Organization [facility] Healthcare Address [address] [place] [address] Care Team Providers Care Knitting Inspector Name Role Phone Braydon Pavon Primary Care Provider [phone] Nikolay Lancaster MD Unavailable [phone] Simon Lundberg MD Primary Care Provider [phone] Nacho Rodriguez MD Unavailable [phone] Elian Gross MD Unavailable Braydon Pavon Primary Care Provider [phone] Encounter Details Date Type Department Care Team (Late st Contact Info) Description 09/14/2020 Telephone [facility] Imaging [address] [id number] Trice Aldana, RT Social History Tobacco Use [...] on file Legal Sex Male 2:52 PM JOURNAL BOX INSPECTOR Gender Identity Male 10/29/2020 12:37 PM CDT Sexual Orientation Straight 10/29/2020 12 :37 PM CDT documented as of this encounter Plan of Treatment Not on file documented as of this encounter Visit Diagnoses Not on filedocumented in this encounter Care Teams Knitting Inspector Relationship Specialty Start Date End Date Braydon Pavon PA [address] [place] [address] PCP - General Family Practice 05/09/20 05/19/21 Simon Lundberg MD [address] [place] [address] PCP - General Family Medicine 05/20/21 08/22/21 Braydon Pavno PA [address] [place] [address] PCP - General 08/23/21 Nikolay Lancaster MD [address] [place] [address] 05/09/20 05/19/21 [place] [address] [address] [facility] [address] [address] Consulting Physician Endocrinology 05/20/21 [place] [address] [address] [facility] [address] [address] Consulting Physician Internal Medicine 05/20/21 documented as of this encounter
--- OUTSIDE RECORDS SUMMARY | 2024-12-13 07:15 | XMS_ITS | Clinical Summary ---
Author Organization [facility] Address [address] [place] [address] Phone Care Team Providers Care Washery Engineer Name Role Phone Braydon Pavon Kunal NEAL Primary Care Provider [phone] Vikram Mora MD Unavailable Riddhi Bello APRN, SHELLFISH SORTER Unavailable Andrea Hawkins MD Unavailable [phone] Allergies Active Allergy Reactions Criticality Noted Date [...] Tablet Take by mouth as needed. Active OneTouch Ultra Strip 3 Active Glucose Blood Strip 1 Strip by Does not apply route. 9 Active albuterol 108 (90 Base) MCG/ACT Aerosol Solution every 4 hours as needed. 3 Active Insulin Pen Needle (B-D ULTRAFINE III SHORT PEN) 31G X 8 MM Misc 1 Active Insulin Pen Needle (B-D ULTRAFINE III SHORT PEN) 31G X 8 MM Misc 1 Each by Subcutaneous route. 1 Active Insulin Pen Needle (Pen [place]) 32G X 4 MM Misc Inject 3 times daily 0 Active traZODone (DESYREL) 100 MG Tablet nightly. 3 Active HYDROcodone-bella taminophen (NORCO) 7.5-325 MG Tablet Take 10 Tablets by mouth three times a week. Active ondansetron (ZOFRAN-ODT) 4 MG TABLET DISPERSIBLE Take 1 Tablet by mouth every 8 hours as needed for Nausea - 1st line. 10 Tablet 4 Active Continuous Blood Gluc Auto Air Conditioning Apprentice (Dexcom G7 Auto Air Conditioning Apprentice) Device Check blood glucose before each meal and at bedtime 1 Each 4 Active HYDROcodone-bella taminophen ([place]we[place]er) 10-325 MG Tablet Take 1 Tablet by mouth every 6 hours as needed. Active pregabalin (LYRICA) 200 MG Capsule Take 200 mg by mouth 2 times daily. 300 mg at night Active Enulose 10 GM/15ML Solution Take 30 mL by mouth 4 times daily. 4 Active Continuous Glucose Sensor (Dexcom G7 Sensor) Misc CHANGE SENSOR EVERY 10 DAYS 9 Each 4 Active pregabalin (LYRICA) 100 MG Capsule Take 100 mg by mouth nightly. Active Active Problems Problem Noted Date Diagnosed [...] Encounters Date Type Department Care Team Description 10/31/2024 10:30 AM CDT Office Visit [facility] - Neurology [facility] [address] [place] [address] Andrea Hawkins MD Diabetic polyneuropathy associated with type 2 diabetes mellitus (HCC) (Primary Dx); Balance disorder; Ulnar neuropathy of right upper extremity; Spinal stenosis of lumbosacral region; BLAND (nonalcoholic steatohepatitis) Discharge Disposition: Discharged to home or Selfcare 10/31/2024 Travel from Last 3 Months Immunizations Immunization Administration [...] file Legal Sex Male 10:58 AM MANAGER OF TRAINING Gender Identity Not on file Sexual Orientation Not on file Last Filed Vital Signs Vital Sign Reading Time Taken Comments Blood Pressure 90/70 10/31/2024 10:11 AM CDT Pulse 87 10/31/2024 10:11 AM CDT Temperature 36.6 C (97.8 F) 10/31/2024 10:11 AM CDT Respiratory Rate 16 10/31/2024 10:11 AM CDT Oxygen Saturation 99% 10/31/2024 10:11 AM CDT Inhaled Oxygen Concentration - - Weight 98.5 kg (217 lb 1.6 oz) 10/31/2024 10:11 AM CDT Height 170.2 cm (5' 7) 10/31/2024 10:11 AM CDT Body Mass Index 34 10/31/2024 10:11 AM CDT Plan of Treatment Upcoming Encounters Date Type Department Care Team (Late st Contact Info) Description 03/02/2025 10:30 AM CDT Office Visit [facility] - Neurology [facility] [address] [place] [address] Andrea Hawkins MD [address] [place] [address] Health Maintenance Due Date Last Done Comments Diabetes: Eye Exam 1970 Hepatitis C Virus (HCV) Screening 1970 TdaP Immunization 1970 Pneumococcal Immunization (50+ years) (1 of 2 - PCV) 1989 Cologuard 09/06/2015 Immunochemical Fecal Occult Blood 09/06/2015 Hepatitis B Immunization (3 of 3 - 19+ 3-dose series) 03/12/2016 11/09/2015, 09/10/2015 Zoster Immunization (1 of 2) 2020 SARS-COV-2 Immunization (3 - season) 2024 12/29/2020, 12/08/2020 Diabetes: Foot Exam 06/01/2024 06/01/2023 Diabetes: Hemoglobin A1c 12/07/2024 02 025, 05/31/2024, 11/23/2023, Additional history exists Influenza Immunization (#1) 2025 Diabetes: Nephropathy Screening 10/31/2025 10/31/2024, 11/13/2023, 05/29/2023, Additional history exists Colonoscopy 03/24/2028 03/24/2023, 12/02, 05/03/2005 Colorectal Cancer Screening 03/24/2028 Respiratory Syncytial Virus (RSV) Immunization (Adult) (1 - 1-dose 75+ series) 2045 Human Papillomavirus (HPV) Immunization Aged Out No longer eligible based on patient's age to complete this topic Meningococcal Immunization (ACWY) Aged Out No longer eligible based on patient's age to complete this topic Rotavirus Immunization Aged Out No lo nger eligible based on patient's age to complete this topic Procedures Procedure Name Priority Date/Time Associated Diagnosis Comments CBC WITH AUTO DIFFERENTIAL Routine 10/31/2024 11:44 AM CDT Polyneuropathy THYROID STIMULATING HORMONE (TSH) Routine 10/31/2024 11:44 AM CDT Polyneuropathy FOLIC ACID (FOLATE) Routine 10/31/2024 1 1:44 AM CDT Polyneuropathy VITAMIN B12 Routine 10/31/2024 11:44 AM CDT Polyneuropathy CMP (COMPREHENSIVE METABOLIC PANEL) Routine 10/31/2024 11:44 AM CDT Polyneuropathy COMPLETE BLOOD COUNT (CBC) WITH DIFF Routine 10/31/2024 11:44 AM CDT Polyneuropathy HEMOGLOBIN A1C W/ ESTIMATED GLUCOSE STAT 05/20/2023 10:44 AM MANAGER OF TRAINING from Last 3 Months or Most Recently Relevant to Health Maintenance Results * (ABNORMAL) CBC WITH AUTO DIFFERENTIAL (10/31/2024 11:44 AM CDT) WBC 6.91 4.00 - 12.00 10(3)/mcL 10/31/2024 12:38 PM CDT [facility] RBC 5.79 4.40 - 5.80 10(6)/mcL 10/31/2024 12:38 PM CDT [facility] HEMOGLOBIN (HGB) 15.2 13.0 - 16.5 g/dL 10/31/2024 12:38 PM CDT [facility] HEMATOCRIT (HCT) 47.2 38.0 - 50.0 % 10/31/2024 12:38 PM CDT [facility] MCV 81.5(L) 82.0 - 96.0 fL 10/31/2024 12:38 PM CDT [facility] MCH 26.3 26.0 - 32.0 pg 10/31/2024 12:38 PM CDT [facility] MCHC 32.2 31.0 - 36.0 g/dL 10/31/2024 12:38 PM CDT [facility] PLATELET COUNT 76(L) 140 - 440 10(3)/mcL 10/31/2024 12:38 PM CDT [facility] RDW 13.5 11.8 - 15.5 % 10/31/2024 12:38 PM CDT [facility] MPV 12.2 8.0 - 12.6 fL 10/31/2024 12:38 PM CDT [facility] NEUTROPHILS 79.2(H) 40.0 - 68.0 % 10/31/2024 12:38 PM CDT [facility] LYMPHOCYTES 10.1(L) 19.0 - 49.0 % 10/31/2024 12:38 PM CDT [facility] MONOCYTES 8.0 3.0 - 13.0 % 10/31/2024 12:38 PM CDT [facility] EOSINOPHILS 1.4 0.0 - 8.0 % 10/31/2024 12:38 PM CDT [facility] BASOPHILS 0.7 0.0 - 1.0 % 10/31/2024 12:38 PM CDT [facility] IMMATURE GRANULOCYTE 0.6(H) 0.0 - 0.4 % 10/31/2024 12:38 PM CDT [facility] Comment:Immature Granulocyte s includes Metamyelocytes, Myelocytes, and Promyelocytes. ABSOLUTE NEUTROPHILS 5.47(H) 1.40 - 5.30 10(3)/mcL 10/31/2024 12:38 PM CDT [facility] ABSOLUTE LYMPHOCYTES 0.70(L) 0.90 - 3.30 10(3)/mcL 10/31/2024 12:38 PM CDT [facility] ABSOLUTE MONOCYTES 0.55 0.10 - 0.90 10(3)/[facility] 10/31/2024 12:38 PM CDT [facility] ABSOLUTE EOSINOPHIL 0.10 0.00 - 0.50 10(3)/mcL 10/31/2024 12:38 PM CDT [facility] ABSOLUTE BASOPHILS 0.05 0.00 - 0.10 10(3)/[facility] 10/31/2024 12:38 PM CDT [facility] ABSOLUTE IMMATURE GRANULOCYTE 0.04(H) 0.00 - 0.03 10 (3) mcL. 10/31/2024 12:38 PM CDT [facility] NRBC PER 100 WBC 0 11/01/19 12:38 PM CDT [facility] Blood Venipuncture / Unknown 10/31/2024 11:44 AM CDT 10/31/2024 12:20 PM CDT us Andrea Hawkins MD HEMATOLOGY ORDERABLES Final Result Performing Organization Address City/[facility]/ZIP Co de Phone Number [facility] [address] [place] [address] * VITAMIN B12 (10/31/2024 11:44 AM CDT) VITAMIN B12 504 213 - 816 pg/mL 10/31/2024 2:02 PM CDT [facility] Blood Venipuncture / Unknown 10/31/2024 11:44 AM CDT 10/31/2024 12:20 PM CDT us Andrea Hawkins MD CHEMISTRY ORDERABLES Final R esult Performing Organization Address City/[facility] Co de Phone Number [facility] [address] [place] [address] * THYROID STIMULATING HORMONE (TSH) (10/31/2024 11:44 AM CDT) TSH 1.180 0.300 - 5.000 mIU/L 10/31/2024 2:03 PM CDT [facility] Blood Venipuncture / Unknown 10/31/2024 11:44 AM CDT 10/31/2024 12:20 PM CDT us Andrea Hawkins MD CHEMISTRY ORDERABLES Final R esult Performing Organization Address City/[facility]/ZIP Co de Phone Number [facility] [address] [place] [address] * FOLIC ACID (FOLATE) (10/31/2024 11:44 AM CDT) FOLATE 11.0 7.0 - 31.4 ng/mL 10/31/2024 2:02 PM CDT [facility] IS THE PATIENT REQUIRED TO BE FASTING? No 10/31/2024 2:02 PM CDT [facility] Blood Venipuncture / Unknown 10/31/2024 11:44 AM CDT 10/31/2024 12:20 PM CDT us Andrea Hawkins MD CHEMISTRY ORDERABLES Final R esult [facility] [address] [place] [address] * (ABNORMAL) CMP (COMPREHENSIVE METABOLIC PANEL) (10/31/2024 11:44 AM CDT) SODIUM 136 136 - 145 mmol/L 10/31/2024 1:57 PM CDT [facility] POTASSIUM 4.6 3.5 - 5.1 mmol/L 10/31/2024 1:57 PM CDT [facility] CHLORIDE 102 98 - 107 mmol/L 10/31/2024 1:57 PM CDT [facility] CO2, VENOUS 25 22 - 30 mmol/L 10/31/2024 1:57 PM CDT [facility] ANION GAP 13.6 <18.0 mmol/L 10/31/2024 1:57 PM CDT [facility] GLUCOSE 325(H) 70 - 99 mg/dL 10/31/2024 1:57 PM CDT [facility] BUN 17 8 - 26 mg/dL 10/31/2024 1:57 PM CDT [facility] CREATININE, BLOOD 1.10 0.70 - 1.30 mg/dL 10/31/2024 1:57 PM CDT [facility] BUN/CREATININE RATIO 15 12 - 20 ratio 10/31/2024 1:57 PM CDT [facility] TOTAL PROTEIN 7.8 6.0 - 8.0 g/dL 10/31/2024 1:57 PM CDT [facility] ALBUMIN 3.9 3.5 - 5.0 g/dL 10/31/2024 1:57 PM CDT [facility] A/G RATIO 1.0 1.0 - 2.2 10/31/2024 1:57 PM CDT [facility] CALCIUM 9.3 8.7 - 10.5 mg/dL 10/31/2024 1:57 PM CDT [facility] T BILI 1.3(H) 0.2 - 1.2 mg/dL 10/31/2024 1:57 PM CDT [facility] SGOT (AST) 21 <43 U/L 10/31/2024 1:57 PM CDT [facility] SGPT (ALT) 11 <56 U/L 10/31/2024 1:57 PM CDT [facility] ALKALINE PHOSPHATASE 96 40 - 150 U/L 10/31/2024 1:57 PM CDT [facility] IS THE PATIENT REQUIRED TO BE FASTING? No 10/31/2024 1:57 PM CDT [facility] GFR, ESTIMATED >60 >=60 10/31/2024 1:57 PM CDT [facility] Comment: Creatinine Clearance is the preferred criteria for selecting drug dose adjustments in renally impaired patients. The GFR is provided as additional pertinent clinical information. GFR is reported in mL/min/1.73 sq m. Calculation based on the Chronic Kidney Disease Epidemiology Collaboration (CKD- EPI) equation refit without adjustment for race. GFR, EST. >60 >=60 025 1:57 PM CDT [facility] GFR, EST. NONAFRICAN >60 >=60 10/31/2024 1:57 PM CDT [facility] Blood Venipuncture / Unknown 10/31/2024 11:44 AM CDT 10/31/2024 12:20 PM CDT us Andrea Hawkins MD CHEMISTRY ORDERABLES Final R esult [facility] [address] [place] [address] * (ABNORMAL) Hemoglobin A1C (05/20/2023 10:44 AM MANAGER OF TRAINING) HGB-A1C 11.6(H) 4.0 - 6.0 % 05/20/2023 12:30 PM MANAGER OF TRAINING [facility] Est Average Glucose 286.2 mg/dL 05/20/2023 12:30 PM MANAGER OF TRAINING [facility] Blood Venipuncture / Unknown 05/20/2023 10:44 AM MANAGER OF TRAINING 05/20/2023 11:01 AM MANAGER OF TRAINING Narrative [facility] - 05/20/2023 12:30 PM MANAGER OF TRAINING HEMOGLOBIN A1C: DIABETIC PATIENTS: WELL-CONTROLLED: 6.2 - 7.0 INTERMEDIATE WELL-CONTROLLED: 7.0 - 9.0 POORLY-CONTROLLED: >9.0 Felicitas Luz APRN, SHELLFISH SORTER CHEMISTRY ORDERABLES Final Result Performing Organization Address [facility] Co de Phone Number [facility] [address] [place] [address] from Last 3 Months or Most Recently Relevant to Health Maintenance [facility] [address] [address] [place] [address] Care Teams Washery Engineer Relationship Specialty Start Date End Date Braydon Pavon PAC [address] [place] [address] PCP - General Physician Security Advisor 06/22/18 Vikram Mora MD [address] [phone] Consulting Physician Endocrinology 05/21/23 Riddhi Bello APRN, SHELLFISH SORTER [address] [place] [address] Nurse Practitioner Advanced Practice Nurse 02/10/23 Andrea Hawkins MD [address] [place] [phone] Consulting Physician Neurology 10/31/24
--- OUTSIDE RECORDS SUMMARY | 2024-12-13 07:15 | XMS_ITS | Clinical Summary ---
Author Organization [facility] Address [address] [facility] Attn: Epic Prelude ADT [place] [address] Care Team Providers Care Asphalt Layer Name Role Phone Carlos Mcdonnell DO Primary Care Provider Unatamara ilable Allergies No known active allergies Medications No known medications Social History Tobacco Use Types Packs/Day Years Used Date Smoking Tobacco: Former Cigarettes Tobacco Cessation:Counseling Given: Not Answered Alcohol Use Standard Drinks/Week Comments Never 0 (1 standard drink = 0.6 oz pur e alcohol) Sex and Gender Information Value Date Recorded Sex Assigned at Not on file Legal Sex Male 6:23 AM DIGITAL CARTOGRAPHIC TECHNICIAN Gender Identity Not on file Sexual Orientation Not on file Last Filed Vital Signs Vital Sign Reading Time Taken Comments Blood Pressure 147/78 06/30/2024 10:10 PM DIGITAL CARTOGRAPHIC TECHNICIAN Pulse 89 06/30/2024 10:55 PM DIGITAL CARTOGRAPHIC TECHNICIAN Temperature 36.4 C (97.5 F) 06/30/2024 5:45 PM DIGITAL CARTOGRAPHIC TECHNICIAN Respiratory Rate 13 06/30/2024 10:55 PM DIGITAL CARTOGRAPHIC TECHNICIAN Oxygen Saturation 96% 06/30/2024 10:55 PM DIGITAL CARTOGRAPHIC TECHNICIAN Inhaled Oxygen Concentration - - Weight [...] 09/10/2015 ZOSTER VACCINE (1 of 2) 2020 COVID-19 Vaccine ( - 2023-2 5 season) 2024 12/29/2020, 12/08/2020 DIABETES ANNUAL FOOT EXAM 06/01/2024 06/01/2023 INFLUENZA VACCINE (#1) 2024 DIABETES HBA1C Q 6 MONTHS 12/07/20242024, 05/31/2024, 11/23/2023, Additional history exists COLORECTAL SCREENING 12/17/2030 12/17/2020, 12/17/2020, 05/04/2005 Colorectal Cancer Screening 12/17/2030 Abdominal Aortic Aneurysm (A AA) Screening Completed 01/20/2024, 05/20/2023, 10/27/2018, Additional history exists Insurance [facility] MEDICAID Care Teams Asphalt Layer Relationship Specialty Start Date End Date Carlos Mcdonnell DO PCP - General 11/18/07
--- OUTSIDE RECORDS SUMMARY | 2024-12-13 07:15 | XMS_ITS | Encounter Summary ---
Author Organization [facility] Address [facility] [address] Care Team Providers Care Technical Writer And Editor Name Role Phone Braydon Pavon Primary Care Provider [phone] Nikolay Lancaster MD Primary Care Provider [phone] Braydon Pavon Primary Care Provider [phone] Reason for Visit * Reason Onset Date Comments MEDICATION REFILL 09/08/2018 Encounter Details Date Type Department Care Team (Late st Contact Info) Description 09/08/2018 Refill [facility] [address] [place] [address] Edmond Choi MD [address] [facility] [address] [facility] [place] [address] MEDICATION REFILL Social History Tobacco Use Types Packs/Day Years Used Date Smoking Tobacco: Former Smokeless Tobacco: Never Alcohol Use Standard Drinks/Week Comments No 0 (1 standard drink = 0.6 oz pur e alcohol) Sex and Gender Information Value Date Recorded Sex Assigned at Not on file Legal Sex Male 8:18 AM IUSS ANALYST Gender Identity Not on file Sexual Orientation Not on file documented as of this encounter Plan of Treatment Not on file documented as of this encounter Visit Diagnoses Not on filedocumented in this encounter Additional Health Concerns Infection Onset Date Last Indicated Resolved Time COVID-19 Under Investigation 06/08/2024 06/08/2024 06/08/2024 4:31 PM IUSS ANALYST Influenza A or B Comment:OSH result 06/08/2024 06/09/2024 06/15/2024 4:[address] documented as of this encounter Care Teams Technical Writer And Editor Relationship Specialty Start Date End Date Braydon Pavon PA [address] [place] [address] PCP - General Physician Buffet Server 05/19/18 10/03/18 Nikolay Lancaster MD [address] [place] [id number] PCP - General 10/04/18 07/13/23 Braydon Pavon PA [address] [place] [address] PCP - General Physician Buffet Server 07/14/23 documented as of this encounter
--- OUTSIDE RECORDS SUMMARY | 2024-12-13 07:15 | XMS_ITS | Clinical Summary ---
Author Organization [facility] Address [address] [place] [address] Care Team Providers Care Blending Plant Operator Name Role Phone Nacho Rodriguez MD Unavailable [phone] Elian Gross MD Unavailable Braydon Pavon Primary Care Provider [phone] Allergies Active Allergy Reactions Criticality Noted Date [...] 1 each 05/21/19 22 Active Dexcom G6 Central Station Operator misc 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 Use [...] Assessment & Plan (05/22/2021 3:58 PM COMMERCIAL JOURNEYMAN ELECTRICIAN): A initial well visit to establish care [...] unless otherwise indicated. Need follow-up arranged with escalator installer, harpoon engagement planning operator Planning on referral to roof cement and paint maker helper Will need to check in to the tips follow-up Labs as ordered today, I will direct the A1 c to his harpoon engagement planning operator's office. Continuing the current regimen for now. Blood pressure is controlled at this time. We may need to try to get the stress test done as well. Screen for colon cancer 03/01/2021 Overview (03/01/2021): Added automatically from request for surgery [id number] Diabetic neuropathy associat ed with type 2 diabetes mellitus 10/29/2020 Assessment & Plan (10/29/2020 4:23 PM CDT): Chronic, worsening Start, gabapentin therapy Work on better diabetic control Vitamin D deficiency 10/29/2020 Assessment & Plan (10/29/2020 4:23 PM CDT): Check labs and based on that for the plans Bacterial endocarditis 05/14/2020 Assessment & Plan (05/14/2020 11:09 AM COMMERCIAL JOURNEYMAN ELECTRICIAN): Unfortunately the patient's records from [facility] are [...] Assessment & Plan (05/14/2020 11:11 AM COMMERCIAL JOURNEYMAN ELECTRICIAN): The patient's dyspnea on exertion is likely [...] resume home regimen and follow-up with home harpoon engagement planning operator MATHEUS pain 10/11/2017 Morbid obesity 12/09/2016 [...] Encounters Date Type Department Care Team Description 12/07/2024 Telephone [facility] Gastroenterology [address] [place] [address] [place] [id number] Adriaen Pearce from Last 3 Months Immunizations Immunization Administration [...] file Legal Sex Male 2:52 PM COMMERCIAL JOURNEYMAN ELECTRICIAN Gender Identity Male 10/29/2020 12:37 PM CDT Sexual Orientation Straight 10/29/2020 12 :37 PM CDT Obstetrics History Last Filed Vital Signs Vital Sign Reading Time Taken Comments Blood Pressure 117/76 06/02/2024 7:36 AM COMMERCIAL JOURNEYMAN ELECTRICIAN Pulse 88 06/02/2024 7:36 AM COMMERCIAL JOURNEYMAN ELECTRICIAN Temperature 36.7 C (98.1 F) 06/02/2024 7:36 AM COMMERCIAL JOURNEYMAN ELECTRICIAN Respiratory Rate 17 01/20/2024 12:0 0 PM CDT Oxygen Saturation 92% 06/02/2024 7:36 AM COMMERCIAL JOURNEYMAN ELECTRICIAN Inhaled Oxygen Concentration - - Weight 103.1 kg (227 lb 6.4 oz) 06/02/2024 7:36 AM COMMERCIAL JOURNEYMAN ELECTRICIAN Height 172.7 cm (5' 8) 11/23/2023 7:53 [...] 11/02, 11/23/2023, Additional history exists Influenza Vaccine (#1) 2025 eGFR 06/02/2025 06/02/2024, 01/02, 11/23/2023, Additional history exists Lipid Panel 06/09/2025 06/09/2024, 05/04, 08/28/2017, Additional history exists Colon Cancer Screening-Colonoscopy 12/17/20302020 Hepatitis C Screening Completed 08/23/2015 Medical Devices Implanted Type Area Study Coordinator Device Identifier Shelf Expiration Date Model / Serial / Lot [employer] [id number] Lifestar 14mm 60mm 80cm Stent Biliary - [id number] Implanted:Qty: 1 on 01/10/2021 at [facility] [employer] 09/15/2023 [id number] / / [id number] Procedures Procedure Name Priority Date/Time Associated Diagnosis Comments EGFR Routine 06/02/2024 8:48 AM COMMERCIAL JOURNEYMAN ELECTRICIAN Hepatic cirrhosis, unspecified hepatic cirrhosis type, unspecified whether ascites present (HCC) HEMOGLOBIN A1C STAT 11/23/2023 8:40 AM CDT LIPID PANEL Routine 05/20/2021 9:36 AM COMMERCIAL JOURNEYMAN ELECTRICIAN Morbid obesity with body mass index (BMI) of 40.0 to 44.9 in adult (HCC) ALBUMIN CREATININE RATIO, URINE Routine 05/20/2021 9:36 AM COMMERCIAL JOURNEYMAN ELECTRICIAN Diabetic neuropathy associated with type 2 diabetes mellitus (HCC) COLONOSCOPY 12/17/2020 10:24 AM CDT SERUM HEPATITIS PANEL Routine 08/23/2015 5:23 PM CDT from Last 3 Months or Most Recently Relevant to Health Maintenance Results * eGFR (06/02/2024 8:48 AM COMMERCIAL JOURNEYMAN ELECTRICIAN) eGFR >90 >=60 mL/min/1. 73 m2 Comment: [...] reviewed 2021. Blood 06/02/2024 8:48 AM COMMERCIAL JOURNEYMAN ELECTRICIAN 06/02/2024 9:05 AM COMMERCIAL JOURNEYMAN ELECTRICIAN us Nilton Whatley MD LAB BLOOD ORDERABLES Final Result [facility] Department [place] [address] * (ABNORMAL) Hemoglobin A1c (11/23/2023 8:40 AM [...] MD LAB BLOOD ORDERABLES Fi nal Result MOHINDER MICHELH [facility] Department [place] [address] * Albumin Creatinine Ratio, Urine (05/20/2021 9:36 AM COMMERCIAL JOURNEYMAN ELECTRICIAN) Albumin Ur <12.0 mg/L MOHINDER MARTINEZ Comment: Interpretive Data No reference range established. Current interpretive data was last revised 2018. Creatinine Ur 47.6 mg/dL MOHINDER MARTINEZ Comment: Interpretive Data No reference range established. Current interpretive data was last revised 2018. Albumin Creatinine Ratio, Ur <25 1 - 29 mg/g MOHINDER Urine 05/20/2021 9:36 AM COMMERCIAL JOURNEYMAN ELECTRICIAN 05/20/2021 7:41 PM COMMERCIAL JOURNEYMAN ELECTRICIAN Simon Lundberg MD LAB URINE ORDERABLES Final Result Performing Organization Address City/[facility] Co de Phone Number MOHINDER [address] [facility] Department [place] [address] * (ABNORMAL) Lipid panel (05/20/2021 9:36 AM COMMERCIAL JOURNEYMAN ELECTRICIAN) Cholesterol 110 30 - 199 mg/dL MOHINDER [...] 3 MOHINDER MICHELLE Blood 05/20/2021 9:36 AM COMMERCIAL JOURNEYMAN ELECTRICIAN 05/20/2021 7:41 PM COMMERCIAL JOURNEYMAN ELECTRICIAN us Simon Lundberg MD LAB BLOOD ORDERABLES Final Result MOHINDER [address] [facility] Department of Laboratories [place] [id number] * COLONOSCOPY (12/17/2020 10:24 AM CDT) Anatomical Region Laterality Modality Other Narrative Procedure Note Elian Gross MD - 12/17/2020 10:24 AM CDT ENDOSCOPY LAB Patient Name: Camilo Curry Procedure Date: 12/17/2020 10:24 AM Date of : 1970 Admit Type: Outpatient Age: 50 Gender: Male Attending MD: Elian Vivar M.D. Room: [facility] ENDOSCOPY ROOM 02 Note Status: Finalized Procedure: [...] the physician, the nurse, the anesthesiologist, the lumber bearer and thetechnician in the pre-procedure area in [...] The scope was passed under direct vision.The [id number] was introduced through the anusand advanced to the hepatic flexure. The colonoscopywas performed without difficulty. The patient tolerated the procedure well. The quality of the bowel preparation was unsatisfactory. The quality of the bowel preparation was evaluated using the BBPS([place] Bowel Preparation Scale) with scores of: RightColon [...] request sample to be sent to [facility] for Hepatitis C Virus (HCV) RNA Detection and Quantitation by Real-Time Reverse Rope Rider-PCR (RT-PCR). Current interpretive data was last revised [...] Recently Relevant to Health Maintenance Insurance [facility] AETNA BETTER [facility] Advance Directives For more information, please contact: [phone] * Full Code (Latest Code Status on [...] 11:57 AM 02/03/2018 5:26 AM Care Teams Blending Plant Operator Relationship Specialty Start Date End Date Braydon Pavon PA [address] [place] [address] PCP - General 08/23/21 [place] [id number] [address] [facility] [address] [place] [address] Consulting Physician Endocrinology 05/20/21 [place] [address] [place] [address] Consulting Physician Internal Medicine 05/20/21
--- NOTE | 2024-12-13 07:19 | ED.NAVMDI ---
HPI - Nausea/Vomiting/Diarrhea General Chief complaint: Nausea/Vomiting/Diarrhea Stated complaint: Diarrhea Time Seen by Provider: 12/13/24 07:19 Source: patient and family Mode of arrival: ambulatory Limitations: no limitations History of Present Illness HPI Narrative: Patient is a 54-year-old male with multiple medical problems here for constipation that is turned into diarrhea for 2 days at and he is concerned for dehydration. 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 He has tips procedure done x2. He has diabetes 2. There is a plan soon to remove his gallbladder at [facility]. Patient has recurrent and chronic alternating diarrhea and constipation. No chest pain or shortness of breath. He has chronic abdominal pain. Specifically pain in the right upper quadrant is common for the patient. He feels that his ammonia level is elevated. No nausea or vomiting. his urine has turned and dark recently. His stool has had some black color changes but he did take some Pepto-Bismol. MD elicited complaint: diarrhea and abdominal pain ( Chronic) Pertinent past history: other ( Diabetes 2, non alcoholic steatosis/cirrhosis, GERD) Onset (ago): day(s) ( 2) Description of vomiting: none Description of diarrhea: mucus, watery and black tarry ( more so black and not really tarry) Associated nausea: No Associated abdominal pain: Yes ( chronic) Location of pain: RUQ Radiation: does not radiate Pain consistency: constant Severity: moderate Pain scale (0-10): 3 Quality: cramping Exacerbating factors: none Relieving factors: none Context: other ( patient has multiple chronic problems specifically related to the liver and is here with diarrhea which is not completely abnormal for him to have but he is feeling dehydrated) Associated symptoms: malaise Treatment prior to arrival: other OTC medicine ( Pepto-Bismol) Related Data Home Medications ?Medication ?Instructions ?Recorded ?Confirmed ?Last Taken ?Type albuterol sulfate 90 mcg/actuation 2 puff inhalation Q8-10H PRN 02/19/20 03/22/24 Unknown History aerosol inhaler Wheezing alprazolam 1 mg tablet 0.5 mg PO TID PRN Anxiety 09/04/20 03/22/24 Unknown History ondansetron HCl 4 mg tablet 4 mg PO BID PRN Nausea 09/04/20 03/22/24 Unknown History liraglutide 0.6 mg/0.1 mL (18 mg/3 See Rx Instructions .Route .COMPLEX 03/05/21 03/22/24 Unknown History mL) subcutaneous pen injector (Victoza 3-Anatoliy) hydroxyzine HCl 25 mg tablet 25 mg PO QID 06/20/23 03/22/24 Unknown History trazodone 100 mg tablet 100 mg PO BID 06/20/23 03/22/24 Unknown History blood sugar diagnostic (OneTouch 02/23/24 03/22/24 Unknown History Ultra Test strips) blood-glucose sensor (Dexcom G7 02/23/24 03/22/24 Unknown History Sensor device) carvedilol 3.125 mg tablet 3.125 mg PO DAILY 02/23/24 03/22/24 Unknown History dulaglutide 0.75 mg/0.5 mL 0.75 mg subcut DAILY 02/23/24 03/22/24 Unknown History subcutaneous pen injector (Trulicity) duloxetine 30 mg capsule,delayed 30 mg PO DAILY 02/23/24 03/22/24 Unknown History release famotidine 20 mg tablet 20 mg PO DAILY 02/23/24 03/22/24 Unknown History hydrochlorothiazide 25 mg tablet 25 mg PO DAILY 02/23/24 03/22/24 Unknown History hydrocodone 10 mg-acetaminophen 10 - 325 tablet PO DAILY 02/23/24 03/22/24 Unknown History 325 mg tablet insulin glargine 100 unit/mL (3 100 unit subcut DIRECTED 02/23/24 03/22/24 Unknown History mL) subcutaneous pen (Lantus Solostar U-100 Insulin) insulin lispro 100 unit/mL 100 unit subcut DIRECTED 02/23/24 03/22/24 Unknown History subcutaneous pen (Humalog KwikPen (U-100) Insulin) insulin regular hum U-500 conc 500 500 unit subcut DIRECTED 02/23/24 03/22/24 Unknown History unit/mL(3 mL) subcut pen (Humulin R U-500 (Conc) Insulin Kwikpen) lactulose 10 gram/15 mL oral 10 g PO DAILY 02/23/24 03/22/24 Unknown History solution (Enulose) metformin 500 mg tablet,extended 500 mg PO DAILY 02/23/24 03/22/24 Unknown History release 24 hr pen needle, diabetic 31 gauge x 02/23/24 03/22/24 Unknown History 09/16 (TRUEplus Pen Needle) pregabalin 200 mg capsule 200 mg PO DAILY 02/23/24 03/22/24 Unknown History Allergies Allergy/AdvReac Type Severity Reaction Status Date / Time aztreonam (Azactam) Allergy Intermediate Unknown Verified 06/08/24 07:33 ciprofloxacin (Cipro) Allergy Intermediate Unknown Verified 06/08/24 07:33 esomeprazole (Nexium) Allergy Intermediate Unknown Verified 06/08/24 07:33 octreotide Allergy Intermediate Unknown Verified 06/08/24 07:33 sulfanilamide Allergy Intermediate Unknown Verified 06/08/24 07:33 erythromycin base Allergy Unknown Unknown Verified 06/08/24 07:33 Penicillins Allergy Unknown Unknown Verified 06/08/24 07:33 Sulfa (Sulfonamide Allergy Unknown Unknown Verified 06/08/24 07:33 Antibiotics) duloxetine Allergy Unknown Verified 06/08/24 07:33 magnesium Allergy Unknown Verified 06/08/24 07:33 nisoldipine Allergy Unknown Verified 06/08/24 07:33 prochlorperazine Allergy Unknown Verified 06/08/24 07:33 IVP dye Allergy Intermediate Unknown Uncoded 06/08/24 07:33 Contrast Media Allergy Unknown Unknown Uncoded 06/08/24 07:33 Review of Systems Review of Systems: All systems reviewed & are unremarkable except as noted in HPI and below Constitutional: Constitutional: Reports no additional constitutional complaints Eyes: Eyes: Reports no additional eye complaints ENT: Reports system reviewed and no additional complaints, except as documented Cardiovascular: Cardiovascular: Reports no additional cardiovascular complaints Respiratory: Respiratory: Reports no additional respiratory complaints Gastrointestinal: Gastrointestinal: Reports no additional gastrointestinal complaints Genitourinary: Genitourinary: Reports no additional male genitourinary complaints Musculoskeletal: Musculoskeletal: Reports no additional musculoskeletal complaints Integumentary/Breasts: Skin/Breast: Reports system reviewed and no additional complaints, except as docu Neurologic: Reports system reviewed and no additional complaints, except as documented Psychiatric: Psychiatric: Reports no additional psychiatric complaints Endocrine: Endocrine: Reports no additional endocrine complaints Hematologic/Lymphatic: Hematologic/Lymphatic: Reports no additional hematologic/lymphatic complaints Allergic/Immunologic: Allergic/Immunologic: Reports no additional allergic/immunologic complaints PMFSH Past Medical History Medical History Chronic back pain Diabetes mellitus type 2 in obese Hepatic encephalopathy GI bleeding GERD (gastroesophageal reflux disease) Varices, esophageal Liver failure Surgical History Surgical History S/P TIPS (transjugular intrahepatic portosystemic shunt) Social History Social History Smoking status: Former smoker Alcohol intake: never Substance use: never Living arrangements: with family Exam Const: General: no acute distress Nutritional Appearance: well nourished Orientation/consciousness: patient oriented x3 Limitations: no limitations HENMT: Head: normal to inspection Ears: external ears normal Face/Nose/Sinus: Normal external nose present Eyes: Conjunctivae: conjunctivae normal Cornea: corneas normal Pupils: Equal, round and reactive pupils present Neck: Neck: normal visual inspection Chest: Chest palpation & inspection: normal inspection of the chest Resp: Effort & Inspection: normal respiratory effort and not labored Auscultation: clear to auscultation bilaterally and no crackles Cardio: Rate: regular rate Rhythm: regular rhythm Heart sounds: no murmurs GI: Inspection: distended GI Palp: Yes Soft to palpation, Yes Tenderness to palpation present (GI), No Guarding due to palpation present (GI), No Rigid due to palpation, No Hernia present, No Palpable mass present and No Rebound tenderness present Auscultation: bowels sounds not normal and Hypoactive bowel sounds present : General: Yes bladder normal to palpation Back/Spine/Pelvis: Back: no CVA tenderness Skin: General skin exam: normal color Rashes: no rashes Wounds: no wounds Neuro: General: patient oriented x3, moves all extremities and no meningeal signs Cranial nerves: Yes Nystagmus not present Speech: normal speech Gait exam (Neuro): Normal gait present Other: fast exam negative, NIH score is 0, GCS is 15 Extrem: General: normal to inspection Psych: Mental Status: mental status grossly normal Affect: normal affect Attitude: cooperative Course Vital Signs Vital signs: Vital Signs Temperature 36.0 C L 12/13/24 07:24 Pulse Rate 82 12/13/24 07:24 Respiratory Rate 16 12/13/24 07:24 Blood Pressure 131/76 12/13/24 07:24 Pulse Oximetry 95 12/13/24 07:24 Oxygen Delivery Room Air 12/13/24 07:24 Temperature 36.0 C L 12/13/24 07:24 Pulse Rate 64 12/13/24 08:45 Respiratory Rate 18 12/13/24 08:45 Blood Pressure 164/81 H 12/13/24 08:45 Pulse Oximetry 100 12/13/24 08:45 Oxygen Delivery Room Air 12/13/24 08:45 MDM - Nausea/Vomiting/Diarrhea MDM Narrative Medical decision making narrative: patient is a 54-year-old male who has concerns for dehydration due to his diarrhea and most of the other complaints are fairly chronic for his medical history. We will do a GI workup. IV fluids. Workup shows cholecystitis and colitis. Patient needs to go to [facility] where he is a high risk patient for surgery and plans to do cholecystectomy already underway as an outpatient. Patient said he would not wait for [facility] to do transfer. Patient said he is going to sign AMA and go directly to the ER at [facility]. Patient understands the risks and benefits. Patient is AAO x4. Ammonia level is negative. present. Patient has the decision making capacity to go AMA at this time. We will give him Flagyl IV due to all of his allergies to cover the GI abnormalities. Blood cultures pending. Lab Data Attestation: I reviewed the patient's lab results. 12/13/24 07:54 12/13/24 07:54 Labs: Lab Results 12/13/24 12/13/24 12/13/24 Range/Units 07:54 07:55 08:37 WBC 3.0 L (4.8-10.8) K/mm3 RBC 5.24 (4.70-6.10) M/mm3 Hgb 13.0 L (14.0-18.0) g/dL Hct 41.5 (40.0-54.0) % MCV 79.2 (78.0-102.0) fL MCH 24.8 L (27.0-31.0) pg MCHC 31.3 L (32-36) g/dL RDW 15.1 H (11.6-14.4) % Plt Count 57 L (150-420) K/mm3 MPV Not Reportable Immature Gran % (Auto) Not Reportable Neut % (Auto) Not Reportable Lymph % (Auto) Not Reportable [place] % (Auto) Not Reportable Eos % (Auto) Not Reportable Baso % (Auto) Not Reportable Lymph # (Auto) Not Reportable [place] # (Auto) Not Reportable Eos # (Auto) Not Reportable Baso # (Auto) Not Reportable Abs Immat Gran (auto) Not Reportable Absolute Neuts (auto) Not Reportable Absolute Nucleated RBC Not Reportable Total Counted 100 Neutrophils % (Manual) 69 (46-73) % Band Neutrophils % 0 (0-6) % Lymphocytes % (Manual) 19 (18-44) % Monocytes % (Manual) 9 (3-9) % Eosinophils % (Manual) 2 (1-6) % Basophils % (Manual) 1 (0-1) % Nucleated RBC % Not Reportable Abs Neuts (Manual) 2.07 (1.3-6.7) K/mm3 Abs Lymphs (Manual) 0.57 L (1.1-4.5) K/mm3 Abs Monocytes (Manual) 0.27 (0.1-0.90) K/mm3 Absolute Eos (Manual) 0.06 (0.02-0.50) K/mm3 Abs Basophils (Manual) 0.03 (0-0.1) K/mm3 Platelet Estimate Decreased (Adequate) % Immature Plt Fraction 6.7 (1.0-7.0) % Schistocytes Not Reportable PT 11.9 (9.50-12.1) Seconds INR 1.1 APTT 31.0 H (23.9-30.70) Sec Sodium 138 (137-145) mmol/L Potassium 4.1 (3.4-5.0) mmol/L Chloride 103 (98-107) mmol/L Carbon Dioxide 29 (22-30) mmol/L Anion Gap 6 (4-12) mmol/L BUN 13 (9-20) mg/dL Creatinine 0.81 (0.7-1.3) mg/dL Estim Creat Clear Calc 101 ml/min Estimated GFR > 60 (59 - ) Glucose 229 H (65-110) mg/dL Calculated Osmolality 293 (285-295) mOsm/kg Lactic Acid 1.2 (0.4-2.0) mmol/L Calcium 9.2 (8.4-10.2) mg/dL Magnesium 1.6 (1.6-2.3) mg/dL Total Bilirubin 1.9 H (0.2-1.3) mg/dL AST 26 (17-59) U/L ALT 15 (6-50) U/L Alkaline Phosphatase 143 H (38-126) U/L Ammonia < 9 L (9-30) umol/L Troponin I < 0.012 (0.000-0.034) ng/mL Total Protein 7.3 (6.3-8.2) g/dL Albumin 3.8 (3.5-5.1) g/dL Lipase 24 (23-300) U/L Urine Color Judy A (Yellow) Urine Appearance Clear (Clear) Urine pH 6.5 (5.0-8.0) Ur Specific Tyler 1.020 (1.010-1.020) Urine Protein 2+ H (Negative) Urine Glucose (UA) Trace H (Negative) Urine Ketones Trace H (Negative) Ur Blood (Man) 1+ H (Negative) Urine Nitrate Positive H (Negative) Urine Bilirubin 2+ H (Negative) Urine Urobilinogen 1.0 (0.2-1.0) mg/dL Leukocyte Esterase Rfl Negative (Negative) KARELY/UL Urine RBC 0-2 (0-2) /hpf Urine WBC None seen (0-3) /hpf Ur Squamous Epith Cells Occasional (Few) /hpf Urine Bacteria Trace (None) /hpf Urine Mucus Moderate H /lpf Imaging Data Attestation: I personally reviewed and interpreted this imaging study as follows: Radiologist's impression: CT scan of the abdomen and pelvis shows IMPRESSION: 1. Mild thickening of the ascending and transverse colon, suspicious for colitis, most likely infectious or inflammatory. 2: Hepatosplenomegaly with tips shunt present. 3: Small pericardial effusion. Small volume of ascites. 4: Gallstones. Possible mild gallbladder wall thickening with trace pericholecystic fluid. Consider cholecystitis in the appropriate clinical setting. ECG Data EKG #1: Attestation: I personally reviewed and interpreted this ECG as follows: ECG completion date: 12/13/24 ECG completion time: 07:51 Prior ECG tracings: available for review Interpretation: no acute changes from prior EKGs EKG Interpretation: normal rate, sinus rhythm, no ectopy, non-specific ST changes ( T-wave changes with ST depression and T-wave inversion of anterior leads), normal QRS, normal QT and NL axis Discharge Plan Discharge Clinical Impression: Cholecystitis, Colitis, Pancytopenia, 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 Patient Disposition: Left Against Medical Advice Condition: Stable Patient Language: East Timorese Prescriptions: No Action albuterol sulfate 90 mcg/actuation HFA aerosol inhaler 2 puff INHALATION Q8-10H PRN (Reason: Wheezing) alprazolam 1 mg tablet 0.5 mg PO TID PRN (Reason: Anxiety) ondansetron HCl 4 mg tablet 4 mg PO BID PRN (Reason: Nausea) cyclobenzaprine 10 mg tablet 10 mg PO TID PRN (Reason: muscle spasm) Qty: 20 0RF liraglutide [Victoza 3-Anatoliy] 0.6 mg/0.1 mL (18 mg/3 mL) pen injector See Rx Instructions .ROUTE .COMPLEX Rx Instructions: . Lagevrio (EUA) 200 mg capsule 800 mg PO Q12H 5 Days Qty: 40 0RF trazodone 100 mg tablet 100 mg PO BID hydroxyzine HCl 25 mg tablet 25 mg PO QID naproxen 500 mg tablet 500 mg PO BID PRN (Reason: pain) Qty: 14 0RF Rx Instructions: take with meals methocarbamol 750 mg tablet 1,500 mg PO TID Qty: 45 0RF triamcinolone acetonide 0.1 % ointment 1 applic topical TID 7 Days Qty: 15 0RF (DME) OneTouch Ultra Test Strip MISCELLANEOUS hydrocodone-acetaminophen 10-325 mg tablet 10 - 325 tablet PO DAILY carvedilol 3.125 mg tablet 3.125 mg PO DAILY famotidine 20 mg tablet 20 mg PO DAILY hydrochlorothiazide 25 mg tablet 25 mg PO DAILY metformin 500 mg tablet extended release 24 hr 500 mg PO DAILY insulin lispro [Humalog KwikPen Insulin] 100 unit/mL insulin pen 100 unit SUBCUT DIRECTED (DME) pen needle, diabetic [TRUEplus Pen Needle] 31 gauge x 5/16 needle MISCELLANEOUS duloxetine 30 mg capsule,delayed release(DR/EC) 30 mg PO DAILY lactulose [Enulose] 10 gram/15 mL solution 10 g PO DAILY pregabalin 200 mg capsule 200 mg PO DAILY insulin glargine [Lantus Solostar U-100 Insulin] 100 unit/mL (3 mL) insulin pen 100 unit SUBCUT DIRECTED (DME) [employer] G7 Sensor Device MISCELLANEOUS Trulicity 0.75 mg/0.5 mL pen injector 0.75 mg SUBCUT DAILY Humulin R U-500 (Conc) Kwikpen 500 unit/mL (3 mL) insulin pen 500 unit SUBCUT DIRECTED cyclobenzaprine 10 mg tablet 10 mg PO TID PRN (Reason: muscle spasm) Qty: 20 0RF omeprazole 20 mg capsule,delayed release(DR/EC) 20 mg PO BID Qty: 60 0RF Follow-up/Referrals: Librado,SONALI Huizar [Primary Care Provider] - Time of Disposition: 09:27
[2024-12-13 07:24] VITALS: BP 131/76; PULSE 82; RESP 16; TEMP 36; O2SAT 95
--- NOTE | 2024-12-13 07:35 | ECG_ITS ---
Test Date: 2024-12-13 07:48:11 Measurements Intervals [place] Rate: 65 P: 34 [place]: 165 QRS: 79 QRSD: 89 T: 14 QT: 403 QTc: 421 Interpretive Statements SINUS RHYTHM INCOMPLETE RIGHT BUNDLE BRANCH BLOCK DELAYED PRECORDIAL R/S TRANSITION MINIMAL Q WAVES- INFERIOR LEADS ST-T WAVE ABNORMALITY IN ANTERIOR LEADS- CONSIDER ISCHEMIA ABNORMAL ECG Compared to ECG 06/08/2024 07:36:42 ST-T WAVE ABNORMALITY NOW PRESENT Possible ischemia now present Electronically Signed On 12-13-2024 08:11:29 CDT by David Polo D.O.
[2024-12-13 08:01] LABS: Hematocrit 41.5 % (40.0-54.0); Hemoglobin 13.0 g/dL (14.0-18.0); Immature Platelet Fraction Pct 6.7 % (1.0-7.0); Mean Corpuscular HGB Conc 31.3 g/dL (32-36); Mean Corpuscular Hemoglobin 24.8 pg (27.0-31.0); Mean Corpuscular Volume 79.2 fL (78.0-102.0); Platelet Count Result 57 K/mm3 (150-420); Red Blood Count 5.24 M/mm3 (4.70-6.10); White Blood Count 3.0 K/mm3 (4.8-10.8)
[2024-12-13] MEDS: SODIUM CHLORIDE 0.9% IV 1,000 ML 999 ML IV CONT (08:02)
--- OUTSIDE RECORDS SUMMARY | 2024-12-13 08:10 | XMS_ITS | Clinical Summary ---
Author Organization [facility] Address [address] [place] [address] Care Team Providers Care Business Management Analyst Name Role Phone Braydon Pavon Primary Care Provider [phone] Source Comments [facility],non-owned Affiliates and Associated Physician Practices is amultiple site organization consisting of ambulatory clinics and hospital sitesin [place] and [place]. This disclosure is being madepursuant to the Care Everywhere program and may not contain all information available regarding this patient. Last updated 18.[facility] Allergies Active Allergy Reactions Criticality Noted Date [...] WC - CONFIRMED WITH [facility] [phone], Reason: Provider adjusted, Reported on 06/09/2024 blood [...] dissolve on the tongue Active HYDROcodone-ac etaminophen ([place]) 10-325 MG tablet Take 1 (one) tablet [...] care, and heating? Not very hard 06/08/2024 [facility] [place] [facility] - Occupational Stress [...] time in the past 12 m [facility], were you homeless or living in a correction (including now)? No 06/08/2024 Sex and Gender Information Value Date Recorded Sex Assigned at Not on file Legal Sex Male 8:18 AM LABORATORY SCIENTIST Gender Identity Not on file Sexual Orientation Not on file Last Filed Vital Signs Vital Sign Reading Time Taken Comments Blood Pressure 110/69 06/10/2024 3:45 PM LABORATORY SCIENTIST Pulse 81 06/10/2024 3:45 PM LABORATORY SCIENTIST Temperature 36.8 C (98.2 F) 06/10/2024 3:45 PM LABORATORY SCIENTIST Respiratory Rate 19 06/10/2024 3:45 PM LABORATORY SCIENTIST Oxygen Saturation 94% 06/10/2024 3:45 PM LABORATORY SCIENTIST Inhaled Oxygen Concentration - - Weight 99.8 kg (220 lb) 06/08/2024 3:47 PM LABORATORY SCIENTIST Height 170.2 cm (5' 7) 06/08/2024 3:47 PM LABORATORY SCIENTIST Body Mass Index 34.46 06/08/2024 3:47 PM LABORATORY SCIENTIST Plan of Treatment Health Maintenance Due Date [...] (CALCIUM TOTAL) AM Draw 06/10/2024 4:45 AM LABORATORY SCIENTIST HEMOGLOBIN A1C Routine 06/09/2024 1:59 AM LABORATORY SCIENTIST from Last 3 Months or Most Recently Relevant to Health Maintenance Results * (ABNORMAL) BASIC METABOLIC PANEL (CALCIUM TOTAL) (06/10/2024 4:45 AM LABORATORY SCIENTIST) Glucose 107(H) 70 - 99 mg/dL 06/10/2024 5:25 AM LABORATORY SCIENTIST [facility] Sodium 139 136 - 145 mmol/L 06/10/2024 5:25 AM LABORATORY SCIENTIST [facility] Potassium 3.4(L) 3.5 - 5.1 mmol/L 06/10/2024 5:25 AM LABORATORY SCIENTIST [facility] Chloride 107 98 - 107 mmol/L 06/10/2024 5:25 AM LABORATORY SCIENTIST [facility] CO2 22 22 - 29 mmol/L 06/10/2024 5:25 AM LABORATORY SCIENTIST [facility] Calcium 8.2(L) 8.4 - 10.4 [...] Unknown Venipuncture / Unknown 06/10/2024 4:45 AM LABORATORY SCIENTIST 06/10/2024 5:01 AM [facility] Olimpia No MD LAB - CHEMISTRY ORDERABLES Fi nal Result [facility] [address] [place] [address] * (ABNORMAL) HEMOGLOBIN A1C (06/09/2024 1:59 AM [facility]) Hemoglobin A1c 9.1(H) <5.7 % 06/09/2024 2:28 AM [facility] Estimated Average Glucose 214 mg/dL 06/09/2024 2:28 AM [facility] Blood BLOOD SPECIMEN / Unknown Venipuncture / Unknown 06/09/2024 1:59 AM LABORATORY SCIENTIST 06/09/2024 2:15 AM [facility] Narrative [facility] - 06/09/2024 2:28 AM [facility] HbA1c Interpretation: Normal: < 5.7% Pre-diabetes: [...] LAB - CHEMISTRY ORDERABLES Anastasiya enciso Result [facility] [address] [place] [address] from Last 3 Months or Most Recently Relevant to Health Maintenance Insurance MEDICAID [employer] [place] Advance Directives * Full Code (Latest Code Status on File) Date Activated Date Inactivated Comments 06/08/2024 3:48 PM 06/10/2024 7:18 PM Care Teams Business Management Analyst Relationship Specialty Start Date End Date Braydon Pavon PA [address] [place] [address] PCP - General Physician Aml Analyst 3/12/24
--- OUTSIDE RECORDS SUMMARY | 2024-12-13 08:10 | XMS_ITS | Encounter Summary ---
Author Organization [facility] Address [address] [place] [address] Care Team Providers Care As400 Operator Name Role Phone Braydon Pavon Primary Care Provider [phone] Nikolay Lancaster MD Unavailable [phone] Simon Lundberg MD Primary Care Provider [phone] Nacho Rodriguez MD Unavailable [phone] Elian Gross MD Unavailable Braydon Pavon Primary Care Provider [phone] Encounter Details Date Type Department Care Team (Late st Contact Info) Description 10/05/2020 Telephone [facility] [address] [place], [place] [id number] Trice Aldana, RT Social History Tobacco Use [...] file 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 Gender Identity Male 10/29/2020 12:37 PM CDT Sexual Orientation Straight 10/29/2020 12 :37 PM CDT documented as of this encounter Plan of Treatment Not on file documented as of this encounter Visit Diagnoses Not on filedocumented in this encounter Care Teams As400 Operator Relationship Specialty Start Date End Date Braydon Pavon PA [address] [place] [address] PCP - General Family Practice 05/09/20 05/19/21 Simon Lundberg MD [address] [place] [address] PCP - General Family Medicine 05/20/21 08/22/21 Braydon Pavon PA [address] [place] [address] PCP - General 08/23/21 Nikolay Lancaster MD [address] [place] [address] 05/09/20 05/19/21 [place] [id number] [address] [facility] [address], [place] [address] Consulting Physician Endocrinology 05/20/21 [place] [id number] [address] [facility] [address] [place] [address] Consulting Physician Internal Medicine 05/20/21 documented as of this encounter
--- OUTSIDE RECORDS SUMMARY | 2024-12-13 08:11 | XMS_ITS | Encounter Summary ---
Author Organization [facility] Address [facility] [place] [address] Care Team Providers Care Manager Gyn Name Role Phone Braydon Pavon Primary Care Provider [phone] Nikolay Lancaster MD Primary Care Provider [phone] Braydon Pavon Primary Care Provider [phone] Reason for Visit * Reason Onset Date Comments MEDICATION REFILL 09/08/2018 Encounter Details Date Type Department Care Team (Late st Contact Info) Description 09/08/2018 Refill [facility] 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 Gender Identity Not on file Sexual Orientation Not on file documented as of this encounter Plan of Treatment Not on file documented as of this encounter Visit Diagnoses Not on filedocumented in this encounter Additional Health Concerns Infection Onset Date Last Indicated Resolved Time COVID-19 Under Investigation 06/08/2024 06/08/2024 06/08/2024 4:31 PM LAW ENFORCEMENT INSTRUCTOR Influenza A or B Comment:OSH result 06/08/2024 06/09/2024 06/15/2024 4:[address] documented as of this encounter Care Teams Manager Gyn Relationship Specialty Start Date End Date Braydon Pavon PA [address] [place] [address] PCP - General Physician Tsa Screener 05/19/18 10/03/18 Nikolay Lancaster MD [address] [place] [address] PCP - General 10/04/18 07/13/23 Braydon Pavon PA [address] [place] [address] PCP - General Physician Tsa Screener 07/14/23 documented as of this encounter
--- OUTSIDE RECORDS SUMMARY | 2024-12-13 08:11 | XMS_ITS | Encounter Summary ---
Author Organization [facility] Healthcare Address [address] [place] [address] Care Team Providers Care Program Research Specialist Name Role Phone Braydon Pavon Primary Care Provider [phone] Nikolay Lancaster MD Unavailable [phone] Simon Lundberg MD Primary Care Provider [phone] Nacho Rodriguez MD Unavailable [phone] Elian Gross MD Unavailable Braydon Pavon Primary Care Provider [phone] Encounter Details Date Type Department Care Team (Late st Contact Info) Description 09/14/2020 Telephone [facility] [address] [place] [id number] Trice Aldana, RT Social History Tobacco Use [...] file 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 Gender Identity Male 10/29/2020 12:37 PM CDT Sexual Orientation Straight 10/29/2020 12 :37 PM CDT documented as of this encounter Plan of Treatment Not on file documented as of this encounter Visit Diagnoses Not on filedocumented in this encounter Care Teams Program Research Specialist Relationship Specialty Start Date End Date Braydon Pavon PA [address] [place] [address] PCP - General Family Practice 05/09/20 05/19/21 Simon Lundberg MD [address] [place] [address] PCP - General Family Medicine 05/20/21 08/22/21 Braydon Pavon PA [address] [place] [address] PCP - General 08/23/21 Nikolay Lancaster MD [address] [place] [address] 05/09/20 05/19/21 [place] [address] [address] [facility] [address] [address] Consulting Physician Endocrinology 05/20/21 [place] [address] [address] [facility] [address] [address] Consulting Physician Internal Medicine 05/20/21 documented as of this encounter
--- OUTSIDE RECORDS SUMMARY | 2024-12-13 08:11 | XMS_ITS | Clinical Summary ---
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 Use [...] 05/20/2021 Assessment & Plan (05/22/2021 3:58 PM STOCK CLIPPER): A initial well visit to establish care [...] unless otherwise indicated. Need follow-up arranged with livestock commission agent, trash man Planning on referral to painter set Will need to check in to the tips follow-up Labs as ordered today, I will direct the A1 c to his trash man's office. Continuing the current regimen for now. Blood pressure is controlled at this time. We may need to try to get the stress test done as well. Screen for colon cancer 03/01/2021 Overview (03/01/2021): Added automatically from request for surgery [id number] Diabetic neuropathy associat ed with type 2 diabetes mellitus 10/29/2020 Assessment & Plan (10/29/2020 4:23 PM CDT): Chronic, worsening Start, gabapentin therapy Work on better diabetic control Vitamin D deficiency 10/29/2020 Assessment & Plan (10/29/2020 4:23 PM CDT): Check labs and based on that for the plans Bacterial endocarditis 05/14/2020 Assessment & Plan (05/14/2020 11:09 AM STOCK CLIPPER): Unfortunately the patient's records from [facility] are [...] 05/14/2020 Assessment & Plan (05/14/2020 11:11 AM STOCK CLIPPER): The patient's dyspnea on exertion is likely [...] resume home regimen and follow-up with home trash man MATHEUS pain 10/11/2017 Morbid obesity 12/09/2016 TRACY [...] Type Department Care Team Description 12/07/2024 Telephone [facility] G[facility]ology [address] [facility] [address] [place] [address] [place] [phone] Adriane Pearce from Last 3 Months Immunizations Immunization [...] on file Legal Sex Male 2:52 PM STOCK CLIPPER Gender Identity Male 10/29/2020 12:37 PM CDT Sexual Orientation Straight 10/29/2020 12 :37 PM CDT Obstetrics History Last Filed Vital Signs Vital Sign Reading Time Taken Comments Blood Pressure 117/76 06/02/2024 7:36 AM STOCK CLIPPER Pulse 88 06/02/2024 7:36 AM STOCK CLIPPER Temperature 36.7 C (98.1 F) 06/02/2024 7:36 AM STOCK CLIPPER Respiratory Rate 17 01/20/2024 12:0 0 PM CDT Oxygen Saturation 92% 06/02/2024 7:36 AM STOCK CLIPPER Inhaled Oxygen Concentration - - Weight 103.1 kg (227 lb 6.4 oz) 06/02/2024 7:36 AM STOCK CLIPPER Height 172.7 cm (5' 8) 11/23/2023 7:53 [...] Completed 08/23/2015 Medical Devices Implanted Type Area Coil Former Device Identifier Shelf Expiration Date Model / Serial / Lot Bard Peripheral Vascular [id number] Lifestar 14mm 60mm 80cm Stent Biliary - [id number] Implanted:Qty: 1 on 01/10/2021 at [facility] [employer] Peripheral Vascular 09/15/2023 [id number] / / [id number] Procedures Procedure Name Priority Date/Time Associated Diagnosis Comments EGFR Routine 06/02/2024 8:48 AM STOCK CLIPPER Hepatic cirrhosis, unspecified hepatic cirrhosis type, unspecified whether ascites present (HCC) HEMOGLOBIN A1C STAT 11/23/2023 8:40 AM CDT LIPID PANEL Routine 05/20/2021 9:36 AM STOCK CLIPPER Morbid obesity with body mass index (BMI) of 40.0 to 44.9 in adult (HCC) ALBUMIN CREATININE RATIO, URINE Routine 05/20/2021 9:36 AM STOCK CLIPPER Diabetic neuropathy associated with type 2 diabetes mellitus (HCC) COLONOSCOPY 12/17/2020 10:24 AM CDT SERUM HEPATITIS PANEL Routine 08/23/2015 5:23 PM CDT from Last 3 Months or Most Recently Relevant to Health Maintenance Results * eGFR (06/02/2024 8:48 AM STOCK CLIPPER) eGFR >90 >=60 mL/min/1. 73 m2 Comment: [...] last reviewed 2021. Blood 06/02/2024 8:48 AM STOCK CLIPPER 06/02/2024 9:05 AM STOCK CLIPPER us Nilton Whatley MD LAB BLOOD ORDERABLES Final Result [facility] Department [place] [address] * (ABNORMAL) Hemoglobin A1c (11/23/2023 8:40 AM [...] ORDERABLES Fi nal Result MOHINDER MICHELH [facility] Department [place] [address] * Albumin Creatinine Ratio, Urine (05/20/2021 9:36 AM STOCK CLIPPER) Albumin Ur <12.0 mg/L MOHINDER MARTINEZ Comment: Interpretive Data No reference range established. Current interpretive data was last revised 2018. Creatinine Ur 47.6 mg/dL MOHINDER MARTINEZ Comment: Interpretive Data No reference range established. Current interpretive data was last revised 2018. Albumin Creatinine Ratio, Ur <25 1 - 29 mg/g MOHINDER Urine 05/20/2021 9:36 AM STOCK CLIPPER 05/20/2021 7:41 PM STOCK CLIPPER Simon Lundberg MD LAB URINE ORDERABLES Final Result Performing Organization Address City/[facility]/[place]UST Co de Phone Number MOHINDER [address] [facility] Department [place] [address] * (ABNORMAL) Lipid panel (05/20/2021 9:36 AM STOCK CLIPPER) Cholesterol 110 30 - 199 mg/dL MOHINDER [...] 3 MOHINDER MICHELLE Blood 05/20/2021 9:36 AM STOCK CLIPPER 05/20/2021 7:41 PM STOCK CLIPPER us Simon Lundberg MD LAB BLOOD ORDERABLES Final Result MOHINDER [address] [facility] Department of Laboratories [place] [id number] * COLONOSCOPY (12/17/2020 10:24 AM CDT) Anatomical Region Laterality Modality Other Narrative Procedure Note Elian Gross MD - 12/17/2020 10:24 AM CDT ENDOSCOPY LAB Patient Name: Camilo Curry Procedure Date: 12/17/2020 10:24 AM Date of : 1970 Admit Type: Outpatient Age: 50 Gender: Male Attending MD: Elian Vivar M.D. Room: [facility] ENDOSCOPY ROOM 02 Note Status: [...] the physician, the nurse, the anesthesiologist, the school health aide and thetechnician in the pre-procedure area in [...] The scope was passed under direct vision.The [id number] was introduced through the anusand advanced to the hepatic flexure. The colonoscopywas performed without difficulty. The patient tolerated the procedure well. The quality of the bowel preparation was unsatisfactory. The quality of the bowel preparation was evaluated using the BBPS([place] Bowel Preparation Scale) with scores of: RightColon [...] to request sample to be sent to [facility] for Hepatitis C Virus (HCV) RNA Detection and Quantitation by Real-Time Reverse Tamping Machine Operator-PCR (RT-PCR). Current interpretive data was last [...] Recently Relevant to Health Maintenance Insurance [employer] [facility] AETNA [facility] [employer] [facility] Advance Directives For more information, please contact: [phone] * Full Code (Latest Code Status on [...] AM 02/03/2018 5:26 AM Care Teams Service Tech Relationship Specialty Start Date End Date Braydon Pavon PA [address] [place] [address] PCP - General 08/23/21 [place] [address] [address] [facility] [address] [place] [address] Consulting Physician Endocrinology 05/20/21 [place] [address] [place] [address] Consulting Physician Internal Medicine 05/20/21
--- OUTSIDE RECORDS SUMMARY | 2024-12-13 08:11 | XMS_ITS | Continuity of Care Document ---
Author Organization [facility] Address [address] [facility] [address] Phone Care Team Providers Care Trouble Dispatcher Name Role Phone Roosevelt Mcgee MD Unavailable [...] route every day 5 MG - Active [place] 10 mg-325 mg tablet take 1 tablet [...] Copied on Encounter OFFICE/OUTPA TIENT VISIT, EST [facility], [address], [place], [id number], [place] tel:[phone] [facility] anxiety1 (chief complaint) DM (chief complaint) liver cirrhosis (chief complaint) GERD1 (chief complaint) chronic pain (chief complaint) Type 2 diabetes mellitus without complicationsGenera lized Anxiety DisorderOther cirrhosis of liverChronic pain syndrome 2-201 [address] [place], [id number] , . tel:[phone] Referring Provider: Roosevelt Mcgee [address], [place], [place], [id number]. tel:[phone] Family History Family Member Type Diagnosis Age [...] takes lantus, tradejnta, humalog. His BG is [id number]. Pt sees endo for his DM. Pt [...] Mental Status Date Cognitive Assessment Orientation - Rosamond ed to time, place, person, situation.
--- OUTSIDE RECORDS SUMMARY | 2024-12-13 08:11 | XMS_ITS | Clinical Summary ---
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 Gender Identity Not on file Sexual Orientation Not on file Last Filed Vital Signs Vital Sign Reading Time Taken Comments Blood Pressure 147/78 06/30/2024 10:10 PM WELL DRILL OPERATOR Pulse 89 06/30/2024 10:55 PM WELL DRILL OPERATOR Temperature 36.4 C (97.5 F) 06/30/2024 5:45 PM WELL DRILL OPERATOR Respiratory Rate 13 06/30/2024 10:55 PM WELL DRILL OPERATOR Oxygen Saturation 96% 06/30/2024 10:55 PM WELL DRILL OPERATOR Inhaled Oxygen Concentration - - Weight - [...] 01/20/2024, 05/20/2023, 10/27/2018, Additional history exists Insurance [facility] MEDICAID Care Teams Protective Signal Operator Relationship Specialty Start Date End Date Carlos Mcdonnell DO PCP - General 11/18/07
--- OUTSIDE RECORDS SUMMARY | 2024-12-13 08:11 | XMS_ITS | Clinical Summary ---
Author Organization [facility] Address [address] [place] [address] Phone Care Team Providers Care Jr. Systems Administrator Name Role Phone Braydon Pavon Kunal NEAL Primary Care Provider [phone] Vikram Mora MD Unavailable Riddhi Bello APRN, GROUND CREW LINES PERSON Unavailable Andrea Hawkins MD Unavailable [phone] Allergies Active Allergy Reactions Criticality Noted Date [...] route. 1 Active Insulin Pen Needle (Pen [place]) 32G X 4 MM Misc Inject 3 times daily 0 Active traZODone (DESYREL) 100 MG Tablet nightly. 3 Active HYDROcodone-bella taminophen (NORCO) 7.5-325 MG Tablet Take 10 Tablets by mouth three times a week. Active ondansetron (ZOFRAN-ODT) 4 MG TABLET DISPERSIBLE Take 1 Tablet by mouth every 8 hours as needed for Nausea - 1st line. 10 Tablet 4 Active Continuous Blood Gluc Engine Room Helper (Dexcom G7 Engine Room Helper) Device Check blood glucose before each meal and at bedtime 1 Each 4 Active HYDROcodone-bella taminophen ([place]) 10-325 MG Tablet Take 1 Tablet by [...] Description 10/31/2024 10:30 AM CDT Office Visit [facility] [address] [place] [address] Andrea Hawkins MD Diabetic polyneuropathy associated with [...] on file Legal Sex Male 10:58 AM SCULLION CHIEF Gender Identity Not on file Sexual Orientation [...] Visit [facility] [address] [place] [address] Andrea Hawkins MD [address] [place] [address] Health Maintenance Due Date Last Done Comments [...] W/ ESTIMATED GLUCOSE STAT 05/20/2023 10:44 AM SCULLION CHIEF from Last 3 Months or Most Recently Relevant to Health Maintenance Results * (ABNORMAL) CBC WITH AUTO DIFFERENTIAL (10/31/2024 11:44 AM CDT) WBC 6.91 4.00 - 12.00 10(3)/mcL 10/31/2024 12:38 PM CDT [facility] RBC 5.79 4.40 - 5.80 10(6)/mcL 10/31/2024 12:38 PM CDT [facility] HEMOGLOBIN (HGB) 15.2 13.0 - 16.5 g/dL 10/31/2024 12:38 PM CDT [facility] HEMATOCRIT (HCT) 47.2 38.0 - 50.0 % 10/31/2024 12:38 PM CDT [facility] MCV 81.5(L) 82.0 - 96.0 fL 10/31/2024 12:38 PM CDT [facility] MCH 26.3 26.0 - 32.0 pg 10/31/2024 12:38 PM CDT [facility] MCHC 32.2 31.0 - 36.0 g/dL 10/31/2024 12:38 PM CDT [facility] PLATELET COUNT 76(L) 140 - 440 10(3)/mcL 10/31/2024 12:38 PM CDT [facility] RDW 13.5 11.8 - 15.5 % 10/31/2024 12:38 PM CDT [facility] MPV 12.2 8.0 - 12.6 fL 10/31/2024 12:38 PM CDT [facility] NEUTROPHILS 79.2(H) 40.0 - 68.0 % 10/31/2024 12:38 PM CDT [facility] LYMPHOCYTES 10.1(L) 19.0 - 49.0 % 10/31/2024 12:38 PM CDT [facility] MONOCYTES 8.0 3.0 - 13.0 % 10/31/2024 12:38 PM CDT [facility] EOSINOPHILS 1.4 0.0 - 8.0 % 10/31/2024 12:38 PM CDT [facility] BASOPHILS 0.7 0.0 - 1.0 % 10/31/2024 12:38 PM CDT [facility] IMMATURE GRANULOCYTE 0.6(H) 0.0 - 0.4 % 10/31/2024 12:38 PM CDT [facility] Comment:Immature Granulocyte s includes Metamyelocytes, Myelocytes, and Promyelocytes. ABSOLUTE NEUTROPHILS 5.47(H) 1.40 - 5.30 10(3)/mcL 10/31/2024 12:38 PM CDT [facility] ABSOLUTE LYMPHOCYTES 0.70(L) 0.90 - 3.30 10(3)/mcL 10/31/2024 12:38 PM CDT [facility] ABSOLUTE MONOCYTES 0.55 0.10 - 0.90 10(3)/[facility] 10/31/2024 12:38 PM CDT [facility] ABSOLUTE EOSINOPHIL 0.10 0.00 - 0.50 10(3)/mcL 10/31/2024 12:38 PM CDT [facility] ABSOLUTE BASOPHILS 0.05 0.00 - 0.10 10(3)/[facility] 10/31/2024 12:38 PM CDT [facility] ABSOLUTE IMMATURE GRANULOCYTE 0.04(H) 0.00 - 0.03 10 (3) mcL. 10/31/2024 12:38 PM CDT [facility] NRBC PER 100 WBC 0 11/01/19 12:38 PM CDT [facility] Blood Venipuncture / Unknown 10/31/2024 11:44 AM CDT 10/31/2024 12:20 PM CDT us Andrea Hawkins MD HEMATOLOGY ORDERABLES Final Result Performing Organization Address City/[facility]/ZIP Co de Phone Number [facility] [address] [place] [address] * VITAMIN B12 (10/31/2024 11:44 AM CDT) VITAMIN B12 504 213 - 816 pg/mL 10/31/2024 2:02 PM CDT [facility] Blood Venipuncture / Unknown 10/31/2024 11:44 AM CDT 10/31/2024 12:20 PM CDT us Andrea Hawkins MD CHEMISTRY ORDERABLES Final R esult Performing Organization Address City/[facility] Co de Phone Number [facility] [address] [place] [address] * THYROID STIMULATING HORMONE (TSH) (10/31/2024 11:44 AM CDT) TSH 1.180 0.300 - 5.000 mIU/L 10/31/2024 2:03 PM CDT [facility] Blood Venipuncture / Unknown 10/31/2024 11:44 AM CDT 10/31/2024 12:20 PM CDT us Andrea Hawkins MD CHEMISTRY ORDERABLES Final R esult Performing Organization Address City/[facility]/ZIP Co de Phone Number [facility] [address] [place] [address] * FOLIC ACID (FOLATE) (10/31/2024 11:44 AM CDT) FOLATE 11.0 7.0 - 31.4 ng/mL 10/31/2024 2:02 PM CDT [facility] IS THE PATIENT REQUIRED TO BE FASTING? No 10/31/2024 2:02 PM CDT [facility] Blood Venipuncture / Unknown 10/31/2024 11:44 AM CDT 10/31/2024 12:20 PM CDT us Andrea Hawkins MD CHEMISTRY ORDERABLES Final R esult [facility] [address] [place] [address] * (ABNORMAL) CMP (COMPREHENSIVE METABOLIC PANEL) (10/31/2024 11:44 AM CDT) SODIUM 136 136 - 145 mmol/L 10/31/2024 1:57 PM CDT [facility] POTASSIUM 4.6 3.5 - 5.1 mmol/L 10/31/2024 1:57 PM CDT [facility] CHLORIDE 102 98 - 107 mmol/L 10/31/2024 1:57 PM CDT [facility] CO2, VENOUS 25 22 - 30 mmol/L 10/31/2024 1:57 PM CDT [facility] ANION GAP 13.6 <18.0 mmol/L 10/31/2024 1:57 PM CDT [facility] GLUCOSE 325(H) 70 - 99 mg/dL 10/31/2024 1:57 PM CDT [facility] BUN 17 8 - 26 mg/dL 10/31/2024 1:57 PM CDT [facility] CREATININE, BLOOD 1.10 0.70 - 1.30 mg/dL 10/31/2024 1:57 PM CDT [facility] BUN/CREATININE RATIO 15 12 - 20 ratio 10/31/2024 1:57 PM CDT [facility] TOTAL PROTEIN 7.8 6.0 - 8.0 g/dL 10/31/2024 1:57 PM CDT [facility] ALBUMIN 3.9 3.5 - 5.0 g/dL 10/31/2024 1:57 PM CDT [facility] A/G RATIO 1.0 1.0 - 2.2 10/31/2024 1:57 PM CDT [facility] CALCIUM 9.3 8.7 - 10.5 mg/dL 10/31/2024 1:57 PM CDT [facility] T BILI 1.3(H) 0.2 - 1.2 mg/dL 10/31/2024 1:57 PM CDT [facility] SGOT (AST) 21 <43 U/L 10/31/2024 1:57 PM CDT [facility] SGPT (ALT) 11 <56 U/L 10/31/2024 1:57 PM CDT [facility] ALKALINE PHOSPHATASE 96 40 - 150 U/L 10/31/2024 1:57 PM CDT [facility] IS THE PATIENT REQUIRED TO BE FASTING? No 10/31/2024 1:57 PM CDT [facility] GFR, ESTIMATED >60 >=60 10/31/2024 1:57 PM CDT [facility] Comment: Creatinine Clearance is the preferred criteria for selecting drug dose adjustments in renally impaired patients. The GFR is provided as additional pertinent clinical information. GFR is reported in mL/min/1.73 sq m. Calculation based on the Chronic Kidney Disease Epidemiology Collaboration (CKD- EPI) equation refit without adjustment for race. GFR, EST. >60 >=60 025 1:57 PM CDT [facility] GFR, EST. NONAFRICAN >60 >=60 10/31/2024 1:57 PM CDT [facility] Blood Venipuncture / Unknown 10/31/2024 11:44 AM CDT 10/31/2024 12:20 PM CDT us Andrea Hawkins MD CHEMISTRY ORDERABLES Final R esult [facility] [address] [place] [address] * (ABNORMAL) Hemoglobin A1C (05/20/2023 10:44 AM SCULLION CHIEF) HGB-A1C 11.6(H) 4.0 - 6.0 % 05/20/2023 12:30 PM SCULLION CHIEF [facility] Est Average Glucose 286.2 mg/dL 05/20/2023 12:30 PM SCULLION CHIEF [facility] Blood Venipuncture / Unknown 05/20/2023 10:44 AM SCULLION CHIEF 05/20/2023 11:01 AM SCULLION CHIEF Narrative [facility] - 05/20/2023 12:30 PM SCULLION CHIEF HEMOGLOBIN A1C: DIABETIC PATIENTS: WELL-CONTROLLED: 6.2 - 7.0 INTERMEDIATE WELL-CONTROLLED: 7.0 - 9.0 POORLY-CONTROLLED: >9.0 Felicitas Luz APRN, GROUND CREW LINES PERSON CHEMISTRY ORDERABLES Final Result Performing Organization Address [facility] Co de Phone Number [facility] [address] [place] [address] from Last 3 Months or Most Recently Relevant to Health Maintenance Insurance MEDICAID [facility] [address] [place] [address] Care Teams Jr. Systems Administrator Relationship Specialty Start Date End Date Braydon Pavon PAC [address] [place] [address] PCP - General Physician Jr. Systems Administrator 06/22/18 Vikram Mora MD [address] [phone] Consulting Physician Endocrinology 05/21/23 Riddhi Bello APRN, GROUND CREW LINES PERSON [address] [place] [address] Nurse Practitioner Advanced Practice Nurse 02/10/23 Andrea Hawkins MD [address] [place] [phone] Consulting Physician Neurology 10/31/24
[2024-12-13 08:12] LABS: Alanine Aminotransferase 15 U/L (6-50); Albumin Level 3.8 g/dL (3.5-5.1); Alkaline Phosphatase 143 U/L (38-126); Anion Gap 6 mmol/L (4-12); Aspartate Amino Transferase 26 U/L (17-59); Bilirubin,Total 1.9 mg/dL (0.2-1.3); Blood Urea Nitrogen 13 mg/dL (9-20); Calcium 9.2 mg/dL (8.4-10.2); Carbon Dioxide 29 mmol/L (22-30); Chloride 103 mmol/L (98-107); Estimated CRCL calculation 101 ml/min; Estimated Glomerular Filt Rate > 60; Glucose 229 mg/dL (65-110); Lipase 24 U/L (23-300); Magnesium 1.6 mg/dL (1.6-2.3); Osmolality Calculated 293 mOsm/kg (285-295); Potassium 4.1 mmol/L (3.4-5.0); Sodium 138 mmol/L (137-145); Total Protein 7.3 g/dL (6.3-8.2)
[2024-12-13 08:13] LABS: Ammonia < 9 umol/L (9-30); Band Neutrophils Percent 0 % (0-6); Basophils Absolute Manual 0.03 K/mm3 (0-0.1); Basophils Percent Manual 1 % (0-1); Eosinophils Absolute Manual 0.06 K/mm3 (0.02-0.50); Eosinophils Percent Manual 2 % (1-6); Lymphocytes Absolute Manual 0.57 K/mm3 (1.1-4.5); Lymphocytes Percent Manual 19 % (18-44); Monocytes Absolute Manual 0.27 K/mm3 (0.1-0.90); Monocytes Percent Manual 9 % (3-9); Neutrophils Absolute Manual 2.07 K/mm3 (1.3-6.7); Neutrophils Percent Manual 69 % (46-73); Total Cells Counted 100
[2024-12-13 08:14] LABS: INR 1.1; Partial Thromboplastin Time 31.0 Sec (23.9-30.70); Prothrombin Time 11.9 Seconds (9.50-12.1)
[2024-12-13 08:24] LABS: Troponin I < 0.012 ng/mL (0.000-0.034)
--- NOTE | 2024-12-13 08:30 | PC.NURSE ---
Pt ambulated per self to [facility] and UA obtained.
[2024-12-13 08:45] VITALS: BP 164/81; PULSE 64; RESP 18; O2SAT 100
[2024-12-13 08:46] LABS: Appearance Urine Clear (Clear); Glucose Urine UA Trace (Negative); Leukocyte Esterase Ur Negative LEU/UL (Negative); Nitrate Urine Positive (Negative); Specific Grav Ur 1.020 (1.010-1.020)
[2024-12-13 08:51] LABS: Add Urine Microscopic? YES
[2024-12-13] MEDS: ONDANSETRON INJ 4 MG/2 ML VIAL IV PUSH (09:05)
--- NOTE | 2024-12-13 09:14 | PC.NURSE ---
Dr Paz in to speak w/ pt about POC and need for transfer to [place] to his specialists due to CT results. Pt is adamet about not wanting to wait for transfer and bed assignment. He wants to have IV antibx here and then will go to [place] himself to see his Drs. He states he will sign AMA and go himself. Risks and benefits explained to pt by ERP.
[2024-12-13] MEDS: metroNIDAZOLE 500 MG/ISO 100ML 500 MG/100 ML BAG 100 MG IVPB (09:20)
[2024-12-13 10:18] VITALS: BP 156/84; PULSE 78; RESP 18; O2SAT 97
--- NOTE | 2024-12-15 13:19 | PC.NURSE ---
final urine culture reviewed. < 10,000 mixed urogenital jc isolated. no change in plan of care
--- NOTE | 2024-12-16 12:47 | PC.NURSE ---
PRELIMINARY BLOOD CULTURE NO GROWTH IN 24 HOURS
--- NOTE | 2024-12-17 13:41 | PC.NURSE ---
Preliminary blood culture report; no growth in 48 hours.
--- NOTE | 2024-12-20 13:16 | PC.NURSE ---
final blood cultures x2 reviewed. no growth in 5 days. no change in plan of care
== END 2024-12-13 10:18 | disposition left against medical advice (07) ==
PROVIDERS: Emergency Provider Emergency Medicine; PCP Physician Assistant
DX: K81.9 Cholecystitis, unspecified (principal); K52.9 Noninfective gastroenteritis and colitis, unspecified; D61.818 Other pancytopenia; K75.81 Nonalcoholic steatohepatitis (NASH); K72.90 Hepatic failure, unspecified without coma; E11.9 Type 2 diabetes mellitus without complications; Z87.891 Personal history of nicotine dependence
CPT/HCPCS: 36415; 74176; 80053; 81001; 82140; 83605; 83690; 83735; 84484; 85025; 85055; 85610; 85730; 87086; 93005; 96361; 96365; 96375; 99284; J1836; J2405; J7030

== ENCOUNTER 2025-01-06 08:23 | Outpatient (CLI) | payer OTHER, SELFPAY ==
--- OUTSIDE RECORDS SUMMARY | 2016-09-02 04:15 | XMS_ITS | Continuity of Care Document ---
Author Organization [facility] Address [address] [facility] [place] [address] Phone Care Team Providers Care Retort Operator Name Role Phone Roosevelt Mcgee MD Unavailable Unavailable Allergies, Adverse Reactions, Alerts Substance Reaction Status Criticality CIPROFLOXACIN HCL Active No Informa tion ciprofloxacin Active No Information erythromycin base Active No Informa tion Sulfa (Sulfonamide Antibiotics) Active No Information PENICILLIN Active No Information Medications Medication Instructions Dosage Effective Dates (start - stop) Status Comments Esmond 10 mg-325 mg tablet take 1 tablet by oral route every 6 hours as needed for pain - Active PRN for pain, avoid driving or operatse machines Tradjenta 5 mg tablet take 1 tablet by oral route every day 5 MG - Active Lantus 100 unit/mL subcutaneous solution inject by subcutaneous route as per insulin protocol 0.00 - Active 130 units Paxil 20 mg tablet take 1 tablet by oral route every day 20 MG - Active Procedures Procedure Date OFFICE/OUTPATIENT VISIT, EST Advance Directives Directive Yes / No Effective Date File Name No Information Encounters Encounter Description Practice Location Reason(s) For Visit Diagnoses Date Provider Providers Copied on Encounter OFFICE/OUTPA TIENT VISIT, EST [facility], [address], [place], [id number], [place] tel:[phone] [facility] anxiety1 (chief complaint) DM (chief complaint) liver cirrhosis (chief complaint) GERD1 (chief complaint) chronic pain (chief complaint) Type 2 diabetes mellitus without complicationsGenera lized Anxiety DisorderOther cirrhosis of liverChronic pain syndrome 2-201 [address] [place], [id number] , . tel:[phone] Referring Provider: Roosevelt Mcgee [address], [place], [place], [id number]. tel:[phone] Family History Family Member Type Diagnosis Age At Onset Mother Problem (finding) of ovarian CA Mother Problem (finding) Sister Problem (finding) Alive and well Father Problem (finding) Sister Problem (finding) Diabetes mellitus type 2 Father Problem (finding) esophageal CA Payers Payer name Insurance type Covered constitution party ID Authoriza tion(s) No Information Social History Type Description Quantity Date Captured Comments Alcohol Use Details No Caffeine Use Details Unknown Tobacco Use Status Never smoked tobacco 2016 Smoking Status Never smoker Non-Smoking Tobacco Use Details : No Details Available : No Details Available Sex Male Vital Signs Date / Time: Height Weight BMI Pulse Rate Blood Pressure Temperature Respiratory Rate Body Surface Area Head Circumference BMI percentile Pulse Ox Inhaled Ox 10:25 AM 68.00 in 260.10 lbs 39.5 5 kg/m eter (2) 86 /min 130/80 mm[Hg] 98.3 F 18 /min Chief Complaint And Reason For Visit From encounter dated '09/02/2016 09:15'. anxiety1 (chief complaint). Description: Pt has chronic anixety and depression. Pt takes paxil and doing ok. Pt denies any suicidal or homicidal thought DM (chief complaint). Description: Pt has DM. Pt takes lantus, tradejnta, humalog. His BG is [id number]. Pt sees endo for his DM. Pt denies any hypoglycemia liver cirrhosis (chief complaint). Description: Pt has end stage liver cirrhosis. Pt told me he hasNASH. Pt told me he does not have hepatitis C or B. Pt sees liver speicalist. Pt is on xifaxan. Pt sees liver speicalist GERD1 (chief complaint). Description: Pt has GERd. Pt takes omeprzole and doing ok. Pt denies any abd pain chronic pain (chief complaint). Description: Pt told me he has chronic pain including neuropathy and also back pain. Pt denies any loss of bowel or bladder control Plan Of Treatment Date Type Action Status No Information History Of Present Illness Encounter Date Complaint History Of Prese nt Illness anxiety1 Pt has chronic a nixety and depression. Pt takes paxil and doing ok. Pt denies any suicidal or homicidal thought DM Pt has DM. Pt ta kes lantus, tradejnta, humalog. His BG is around 250s. Pt sees endo for his DM. Pt denies any hypoglycemia liver cirrhosis Pt has end stage liver cirrhosis. Pt told me he has BLAND. Pt told me he does not have hepatitis C or B. Pt sees liver speicalist. Pt is on xifaxan. Pt sees liver speicalist GERD1 Pt has GERd. Pt takes omeprzole and doing ok. Pt denies any abd pain chronic pain Pt told me he mcbride s chronic pain including neuropathy and also back pain. Pt denies any loss of bowel or bladder control Instructions Date Instruction Additional Infor mation Prescribed Activity and Exercise Education Related to Dietary Surveillance and Counseling Prescribed Diet Educ ation/Lifestyle Education Regarding Diet Related to Dietary Surveillance and Counseling Assessments Type Assessment Date assessment Type 2 diabetes mellitus without complications assessment Generalized Anxiety Disorder September assessment Other cirrhosis of liver 2016 assessment Chronic pain syndrome 7 Mental Status Date Cognitive Assessment Orientation - Den[place] ed to time, place, person, situation.
--- NOTE | ~2025-01-06 | US_ITS ---
US right upper quadrant INDICATION: Cirrhosis PROCEDURE: Realtime right upper abdominal ultrasound. COMPARISON: Ultrasound dated 10/30/2022 FINDINGS: Pancreas not visualized. Liver echotexture is somewhat heterogeneous. No discrete mass identified. Subtle nodularity of the liver surface compatible with cirrhosis. There is normal directional flow in the portal vein. TIPS shunt appears to be patent. There is gallbladder sludge. There are gallstones. Common bile duct measures 6 mm. No sonographic Espinoza's sign. IMPRESSION: 1: Cholelithiasis with gallbladder sludge. 2: Cirrhosis of the liver. Reviewed, dictated and finalized at location O.
--- OUTSIDE RECORDS SUMMARY | 2025-01-06 08:28 | XMS_ITS | Clinical Summary ---
Author Organization [facility] Address [address] Attn: Epic Prelude ADT [place] [address] Care Team Providers Care Insurance Counsel Name Role Phone Carlos Mcdonnell DO Primary Care Provider Mauricio ilable Allergies No known active allergies Medications [...] on file Legal Sex Male 6:23 AM LOCAL SALES ASSOCIATE Gender Identity Not on file Sexual Orientation Not on file Last Filed Vital Signs Vital Sign Reading Time Taken Comments Blood Pressure 147/78 06/30/2024 10:10 PM LOCAL SALES ASSOCIATE Pulse 89 06/30/2024 10:55 PM LOCAL SALES ASSOCIATE Temperature 36.4 C (97.5 F) 06/30/2024 5:45 PM LOCAL SALES ASSOCIATE Respiratory Rate 13 06/30/2024 10:55 PM LOCAL SALES ASSOCIATE Oxygen Saturation 96% 06/30/2024 10:55 PM LOCAL SALES ASSOCIATE Inhaled Oxygen Concentration - - Weight - [...] VACCINE (1 of 2) 2020 COVID-19 Vaccine (3 - 2023-2 5 season) 2024 12/29/2020, 12/08/2020 DIABETES ANNUAL FOOT EXAM 06/01/2024 06/01/2023 INFLUENZA VACCINE (#1) 2024 DIABETES HBA1C Q 6 MONTHS 12/07/20242024, 05/31/2024, 11/23/2023, Additional history exists COLORECTAL SCREENING 12/17/2030 12/17/2020, 12/17/2020, 05/04/2005 Colorectal Cancer Screening 12/17/2030 Abdominal Aortic Aneurysm (A AA) Screening Completed 01/20/2024, 05/20/2023, 10/27/2018, Additional history exists Insurance [facility] MEDICAID Care Teams Insurance Counsel Relationship Specialty Start Date End Date Carlos Mcdonnell DO PCP - General 11/18/07
--- OUTSIDE RECORDS SUMMARY | 2025-01-06 08:28 | XMS_ITS | Patient Health Record ---
Author Organization [facility] Address [address] [place] [address] Care Team Providers Care Auto Glass Installer Name Role Phone VIKTORIA FLORIAN Unavailable [phone] Reason For Referral No Information Plan Of Treatment No Information
--- OUTSIDE RECORDS SUMMARY | 2025-01-06 08:28 | XMS_ITS | Clinical Summary ---
Author Organization [facility] Address [address] [place] [address] Care Team Providers Care Physiotherapy Assistant Name Role Phone Braydon Pavon Primary Care Provider [phone] Allergies Active Allergy Reactions Criticality Noted Date [...] (two) times daily. Active vitamin D2, ergocalciferol, 06077 UNITS capsule Take 1 capsule (50,000 Units total) by mouth every 30 (thirty) days. Active Insulin Pen Needle (PEN NEEDLES) 32G X 4 MM Misc Inject 3 times daily 08/04/19 20 Active ONE TOUCH ULTRA TEST STRIPS test stripIndications:T ype 2 diabetes mellitus with hyperglycemia, with long-term current use of insulin ([facility]) Test 4 times daily 200 strip [...] hyperglycemia, with long-term current use of insulin ([facility]) Inject 0.4 mLs (200 Units total) into the skin 3 (three) times daily before meals. 18 mL 11 02/19/20 24 Active Additional Information Patient taking differently:200 Units Subcutaneous 3 times daily before meals,Pt taking 200 units three times, Reported on 05/31/2024 Continuous Glucose Sensor (FM Global G7 SENSOR) MiscIndications:Ty pe 2 diabetes mellitus with hyperglycemia, with long-term current use of insulin ([facility]/HCC) CHANGE SENSOR EVERY 10 DAYS [...] hyperglycemia, with long-term current use of insulin ([facility]) TAKE 1 TABLET (500 MG TOTAL) BY MOUTH DAILY WITH SUPPER. 90 tablet 1 08/25/19 25 Active Active Problems Problem Noted Date Diagnosed Date Diabetic neuropathy associat ed with type 2 diabetes mellitus ([facility]) 10/29/2020 Lumbar degenerative disc disease 05/23/2019 Essential hypertension 07/21/2018 TRACY (obstructive sleep apnea) 09/14/2016 Thrombocytopenia 09/14/2016 Esophageal varices ([facility]) 09/09/2016 Hepatic encephalopathy ([facility]) 017 Type 2 diabetes mellitus wit h hyperglycemia, with long-term current use of insulin ([facility]) 09/09/2016 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 s/p TIPS in 2015. -RUQ today showing TIPS with slower velocity compared to 08/2017 but still patent, rec close FU. -rifaximin -holding lactulose for diarrhea -should have BB outpt Resolved Problems Problem Noted Date Diagnosed Date Resolved Date Bacterial endocarditis ([facility]) 05/14/2020 06/05/2024 BLAND (nonalcoholic steatohepatitis) 07/21/2018 04/05/2019 Diabetes mellitus, type 2 ([facility]) 02/02/2018 06/05/2024 Morbid obesity 12/09/2016 06/05/2024 History of upper gastrointestinal hemorrhage 6 04/05/2019 Family History Medical History Relation Comments Throat [...] Sign Reading Time Taken Comments Blood Pressure 114/75 10/01/2024 4:50 AM CDT Pulse 89 10/01/2024 12:24 AM CDT Temperature 36.7 C (98 F) 10/01/2024 12:24 AM CDT Respiratory Rate 18 10/01/2024 12:2 4 AM CDT Oxygen Saturation 90% 10/01/2024 4:50 AM CDT Inhaled Oxygen Concentration - - Weight 100.3 kg (221 lb 3.2 oz) 025 12:13 AM CDT Height 170.2 cm (5' 7) 10/01/2024 12:1 3 AM CDT Body Mass Index 34.64 10/01/2024 12:13 AM CDT Plan of Treatment Health Maintenance Due Date Last Done Comments Colorectal Cancer Screening Colonoscopy (10 Years) 1970 Annual Physical 1973 Diabetes: Retinopathy Eye Exam 1988 DTaP, Tdap and Td Vaccines (1 - Tdap) 1989 Pneumococcal Vaccine: 50+ Years (1 of 2 - PCV) 1989 Hepatitis B Vaccines (3 of 3 - 19+ 3-dose series) 03/12/2016 11/09/2015, 09/10/2015 Zoster Vaccines (1 of 2) 2020 PHQ-2 (Physician [place]) 05/04/2024 02/15/2024 Hemoglobin A1C 09/06/2024 06/09/2024, 05/05, 11/23/2023, Additional history exists COVID-19 Vaccine ( - 2024- season) 2025 12/29/2020, 12/08/2020 Kidney Health Evaluation 05/31/2025 05/31/2024 Lipid Panel 06/09/2025 06/09/2024 Hepatitis C Completed 12/29/2023, 12/29/2023 Meningococcal B Vaccine Aged Out No l onger eligible based on patient's age to complete this topic Meningococcal Vaccine Aged Out No marcia rusty eligible based on patient's age to complete this topic RSV Immunizations Under 20 Months Aged Out No longer eligible based on patient's age to complete this topic Medical Devices Implanted Type Area Research And Development Director Device Identifier Shelf Expiration Date Model / Serial / Lot [employer] Stent-01/02/2021 Implanted: 021 (Quantity not on file) Stent Abdomen [employer] - DIV C R BARD [id number] / / Description:Non-clinical silvia ting demonstrated that [...] field of 720 Gauss/cm or less Maximum uoteg-muzf-dplbvbom specific absorption rate (IVANA) of 2-W/kg for 15 minutes of scanning for patient landmarks above the umbilicus. Maximum WB-IVANA of 1 W/kg for 15 min. of scanning for patient landmarks below the umbilicus. Procedures Procedure Name Priority Date/Time Associated Diagnosis Comments HEMOGLOBIN, GLYCOSYLATED Routine 05/31/2024 Type 2 diabetes mellitus with hyperglycemia, with long-term current use of insulin ([facility]) from Last 3 Months or Most Recently Relevant to Health Maintenance Results * HEMOGLOBIN, GLYCOSYLATED (05/31/2024) HGB A1C 10.3 % [address] [place] 05/31/2024 Eva Power MD LABORATORY Final Result [address] [address], from Last 3 Months or Most Recently Relevant to Health Maintenance Insurance [employer] Care Teams Physiotherapy Assistant Relationship Specialty Start Date End Date Braydon Pavon PA PCP - General PHYSICIAN FREIGHT TRAFFIC CONSULTANT 03/02/19
--- OUTSIDE RECORDS SUMMARY | 2025-01-06 08:29 | XMS_ITS | Encounter Summary ---
Author Organization [facility] Address [address] [place] [address] Care Team Providers Care Baling Machine Tender Name Role Phone Braydon Pavon Primary Care Provider [phone] Nikolay Lancaster MD Unavailable [phone] Simon Lundberg MD Primary Care Provider [phone] Nacho Rodriguez MD Unavailable [phone] Elian Gross MD Unavailable Braydon Pavno Primary Care Provider [phone] Encounter Details Date Type Department Care Team (Late st Contact Info) Description 10/05/2020 Telephone [facility] [address] [place], [place] [id number] Trice Aldana, RT Social History Tobacco Use [...] on file Legal Sex Male 2:52 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 STICK 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 Gender Identity Male 10/29/2020 12:37 PM CDT Sexual Orientation Straight 10/29/2020 12 :37 PM CDT documented as of this encounter Plan of Treatment Not on file documented as of this encounter Visit Diagnoses Not on filedocumented in this encounter Care Teams Baling Machine Tender Relationship Specialty Start Date End Date Braydon Pavon PA [address] [place] [address] PCP - General Family Practice 05/09/20 05/19/21 Simon Lundberg MD [address] [place] [address] PCP - General Family Medicine 05/20/21 08/22/21 Braydon Pavon PA [address] [place] [address] PCP - General 08/23/21 Nikolay Lancaster MD [address] [place] [address] 05/09/20 05/19/21 [place] [id number] [facility] [address], [place] [address] Consulting Physician Endocrinology 05/20/21 [place] [id number] [facility] [address] [place] [address] Consulting Physician Internal Medicine 05/20/21 documented as of this encounter
--- OUTSIDE RECORDS SUMMARY | 2025-01-06 08:29 | XMS_ITS | Clinical Summary ---
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 Use to [...] Problems Problem Noted Date Diagnosed Date Biliary dyskinesia 12/13/2024 RUQ abdominal pain 01/20/2024 Encounter for medical examination to establish c are 05/20/2021 Assessment & Plan (05/22/2021 3:58 PM CONTROL DIRECTOR): A initial well visit to establish [...] unless otherwise indicated. Need follow-up arranged with cigar head pegger, cabinet installer Planning on referral to paint factory worker Will need to check in to the tips follow-up Labs as ordered today, I will direct the A1 c to his cabinet installer's office. Continuing the current regimen for now. Blood pressure is controlled at this time. We may need to try to get the stress test done as well. Screen for colon cancer 03/01/2021 Overview (03/01/2021): Added automatically from request for surgery [id number] Diabetic neuropathy associat ed with type 2 diabetes mellitus 10/29/2020 Assessment & Plan (10/29/2020 4:23 PM CDT): Chronic, worsening Start, gabapentin therapy Work on better diabetic control Vitamin D deficiency 10/29/2020 Assessment & Plan (10/29/2020 4:23 PM CDT): Check labs and based on that for the plans Bacterial endocarditis 05/14/2020 Assessment & Plan (05/14/2020 11:09 AM CONTROL DIRECTOR): Unfortunately the patient's records from [place] are not available for my review. We [...] 05/14/2020 Assessment & Plan (05/14/2020 11:11 AM CONTROL DIRECTOR): The patient's dyspnea on exertion is [...] - follow up in 6 weeks with TRIAL MANAGEMENT ASSOCIATE Chelsea Driscoll ( to discuss about insulin [...] resume home regimen and follow-up with home cabinet installer MATHEUS pain 10/11/2017 Morbid obesity 12/09/2016 TRACY [...] Encounters Date Type Department Care Team Description 01/05/2025 Documentation [facility] Medicine Gastroenterology [address] [facility] Advanced Medicine 12th [place] [address] [place] [address] Sean Rodas RN 12/26/2024 3:04 PM CDT - 12/26/2024 11:59 PM CDT Hospital Encounter [facility] [address] [place] [address] Discharge Disposition: Discharge to home or self care 12/19/2024 Telephone [facility] [address] [facility] Advanced Medicine 12th Floor, [place] [address] Rina Edmondson MD Medical Question/Miscellaneo us 12/14/2024 Hospital Encounter [facility] Operating Room [address] [place] [address] Valeriano Torres MD 12/13/2024 2:22 PM CDT - 12/14/2024 11:51 AM CDT Emergency [facility] Emergency Department [address] [place] [address] Raffaele Mariee MD Char, Douglas M., MD Khan, MD Treasure Banasl, MD Sherrie Vivar, Nabil Ken 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 Denies 12/13/2024 Sex and Gender Information Value Date Recorded Sex Assigned at Not on file Legal Sex Male 2:52 PM CONTROL DIRECTOR Gender Identity Male 10/29/2020 12:37 PM CDT Sexual Orientation Straight 10/29/2020 12 :37 PM CDT Obstetrics History Last Filed Vital Signs Vital Sign Reading Time Taken Comments Blood Pressure 146/78 12/14/2024 8:03 AM CDT Pulse 72 12/14/2024 8:03 AM CDT Temperature 36.2 C (97.2 F) 12/14/2024 8:35 AM CDT Respiratory Rate 16 12/14/2024 5:30 AM CDT Oxygen Saturation 97% 12/14/2024 8:03 AM CDT Inhaled Oxygen Concentration - - Weight 96.2 kg (212 lb) 12/13/2024 2:02 PM CDT Height 172.7 cm (5' 8) 12/13/2024 2:02 PM CDT Body Mass Index 32.23 12/13/2024 2:02 PM CDT Plan of Treatment Health Maintenance Due Date Last Done Comments Prostate Cancer Screening-PSA 1970 Dilated Eye Exam 1970 DTaP/Tdap/Td Vaccine (1 - Tdap) 1981 Regular Well Visit/Exam 18-64 1988 Pneumococcal vaccine <65 (1 of 2 - PCV) 1989 Zoster Vaccine (1 of 2) 2020 Foot Exam 10/29/2021 10/29/2020 Albumin Creatinine Ratio, Urine 05/20/2022 2 Depression Screening 05/20/2022 05/20/2021, 05/20/2021, 10/29/2020 Hemoglobin A1C 12/07/2024 06/09/2024, 0706/2023, 11/23/2023, Additional history exists Covid-19 Vaccine (3 - 2024-2 6 season) 2025 12/29/2020, 12/08/2020 Influenza Vaccine (#1) 2025 Lipid Panel 12/14/2025 12/14/2024, 02/0 10/2024, 05/20/2021, Additional history exists eGFR 12/14/2025 12/14/2024, 12/02, 06/02/2024, Additional history exists Colon Cancer Screening-Colonoscopy 12/17/20302020 Hepatitis C Screening Completed 08/23/2015 Medical Devices Implanted Type Area Deputy Harbormaster Device Identifier Shelf Expiration Date Model / Serial / Lot [employer] [id number] Lifestar 14mm 60mm 80cm Stent Biliary - [id number] Implanted:Qty: 1 on 01/10/2021 at [facility] [employer] 09/15/2023 [id number] / / [id number] Procedures Procedure Name Priority Date/Time Associated Diagnosis Comments CT BODY OUTSIDE REFERENCE Routine 12/26/2024 3:04 PM CDT LIPID PANEL STAT 12/14/2024 9:12 AM CDT EGFR STAT 12/14/2024 9:12 AM CDT IMMATURE PLATELET FRACTION STAT 12/14/2024 9:12 AM CDT DIFFERENTIAL AUTO STAT 12/14/2024 9:1 2 AM CDT COMPREHENSIVE METABOLIC PANEL STAT 12/14/2024 9:12 AM CDT CBC WITH AUTO DIFFERENTIAL STAT 12/14/2024 9:12 AM CDT POCT GLUCOSE DEVICE Routine 12/14/2024 7 :56 AM CDT POCT GLUCOSE DEVICE Routine 12/14/2024 2 :32 AM CDT POCT GLUCOSE DEVICE Routine 12/13/2024 1 0:38 PM CDT POCT GLUCOSE DEVICE Routine 12/13/2024 5 :17 PM CDT US RUQ ED 12/13/2024 4:00 PM CDT EGFR STAT 12/13/2024 2:37 PM CDT DIFFERENTIAL AUTO STAT 12/13/2024 2:3 7 PM CDT TYPE AND SCREEN STAT 12/13/2024 2:37 PM CDT APTT STAT 12/13/2024 2:37 PM CDT PROTIME-INR STAT 12/13/2024 2:37 PM CDT LIPASE STAT 12/13/2024 2:37 PM CDT COMPREHENSIVE METABOLIC PANEL STAT 12/13/2024 2:37 PM CDT CBC WITH AUTO DIFFERENTIAL STAT 12/13/2024 2:37 PM CDT POCT GLUCOSE DEVICE Routine 12/13/2024 2 :12 PM CDT HEMOGLOBIN A1C STAT 11/23/2023 8:40 AM CDT ALBUMIN CREATININE RATIO, URINE Routine 05/20/2021 9:36 AM CONTROL DIRECTOR Diabetic neuropathy associated with type 2 diabetes mellitus (HCC) COLONOSCOPY 12/17/2020 10:24 AM CDT SERUM HEPATITIS PANEL Routine 08/23/2015 5:23 PM CDT from Last 3 Months or Most Recently Relevant to Health Maintenance Results * CT Body Outside Reference (12/26/2024 3:04 PM CDT) Impressions [facility] - 12/26/2024 3:04 PM CDT These images are for Reference purposes only and have not been reviewed by [facility]. There will be no report generated by a [facility] Radiologist. Narrative [facility] - 12/26/2024 3:04 PM CDT EXAMINATION: Images For Reference Purposes Only us Nabil Vang MD IMG CT PROCEDURES Fi nal Result Performing Organization Address City/[facility]/ZIP Co de Phone Number [facility] * Immature platelet fraction (12/14/2024 9:12 AM CDT) IPF 9.5 1.6 - 10.1 % Blood 12/14/2024 9:12 AM CDT 12/14/2024 9:28 AM CDT Nabil Balderas Jr., MD LAB BLOOD ORDERABLES F inal Result Performing Organization Address [facility] de Phone Number [facility] Department [place] [address] * eGFR (12/14/2024 9:12 AM CDT) eGFR >90 >=60 mL/min/1. 73 m2 [...] interpretive data was last reviewed 2021. Blood 12/14/2024 9:12 AM CDT 12/14/2024 9:48 AM CDT us Nabil Balderas Jr., MD LAB BLOOD ORDERABLES F inal Result [facility] Department [place] [address] * (ABNORMAL) Differential, auto (12/14/2024 9:12 AM CDT) Pathologist [facility] Neutrophil abs 1.68 1.50 - 6.50 K/cumm Imm gran abs 0.01 0.00 - 0.10 K/cumm [facility] Lymphocyte abs 0.16(L) 0.80 - 3.30 K/cumm [facility] Monocyte abs 0.03(L) 0.20 - 0.80 K/cumm [facility] Eosinophil abs 0.00 0.00 - 0.50 K/cumm [facility] Basophil abs 0.01 0.00 - 0.10 K/cumm [facility] Neutrophil pct 88.9 % [facility] Comment: Interpretive Data Percent cell count reference ranges are not reported, since discordance with absolute values may lead to misinterpretation of CBC data. Current Interpretive Data was last revised on 2017. Imm gran pct 0.5 % [facility] Comment: Interpretive Data Percent cell count reference ranges are not reported, since discordance with absolute values may lead to misinterpretation of CBC data. Current Interpretive Data was last revised on 2017. Lymphocyte pct 8.5 % [facility] Comment: Interpretive Data Percent cell count reference ranges are not reported, since discordance with absolute values may lead to misinterpretation of CBC data. Current Interpretive Data was last revised on 2017. Monocyte pct 1.6 % [facility] Comment: Interpretive Data Percent cell count reference ranges are not reported, since discordance with absolute values may lead to misinterpretation of CBC data. Current Interpretive Data was last revised on 2017. Eosinophil pct 0.0 % [facility] Comment: Interpretive Data Percent cell count reference ranges are not reported, since discordance with absolute values may lead to misinterpretation of CBC data. Current Interpretive Data was last revised on 2017. Basophil pct 0.5 % [facility] Comment: Interpretive Data Percent cell count reference ranges are not reported, since discordance with absolute values may lead to misinterpretation of CBC data. Current Interpretive Data was last revised on 2017. Blood 12/14/2024 9:12 AM CDT 12/14/2024 9:22 AM CDT us Nabil Balderas Jr., MD LAB BLOOD ORDERABLES F inal Result [facility] Department [place] [address] * (ABNORMAL) CBC with auto differential (12/14/2024 9:12 AM CDT) WBC 1.84(L) 3.80 - 9.90 K/cumm Hgb 12.5(L) 13.0 - 17.5 g/dL [facility] Hct 39.1 38.9 - 50.3 % [facility] Plt 47(C) 150 - 400 K/cumm [facility] Comment:Platelet count confi rmed by additional testing. Critical platelet count threshold determined by patient location: Outpatient:<50 K/cumm , Inpatient adults:<20 K/cumm , Inpatient pediatric:<25 K/cumm, BMT service:<10 K/cumm MPV Not Measured 9.1 - 12.3 fL [facility] RBC 5.09 4.30 - 5.80 M/cumm [facility] MCV 76.8(L) 81.3 - 96.4 fL [facility] MCH 24.6(L) 27.1 - 33.3 pg [facility] MCHC 32.0(L) 32.3 - 35.7 g/dL [facility] RDW CV 15.2(H) 11.1 - 14.9 % [facility] RDW SD 41.5 35.7 - 48.1 fL [facility] NRBC abs 0.00 0.00 - 0.01 K/cumm [facility] Blood 12/14/2024 9:12 AM CDT 12/14/2024 9:22 AM CDT us Nabil Balderas Jr., MD LAB BLOOD ORDERABLES F inal Result [facility] Department [place] [address] * (ABNORMAL) Lipid panel (12/14/2024 9:12 AM CDT) Cholesterol 102 30 - 199 mg/dL Comment: Interpretive Data Ages < or = [...] Data was last revised on 2017. Triglycerides 86 <=149 mg/dL [facility] Comment: Interpretive Data Ages < or = [...] Data was last revised on 2017. HDL 21(L) >=40 mg/dL [facility] Comment: Interpretive Data Ages < or = [...] was last revised on 2017. LDL, calculated 64 <=129 mg/dL [facility] Comment: Interpretive Data Ages < or = 19 years Acceptable: <110 mg/dL Borderline high: 110-129 mg/dL High: >or= 130 mg/dL Ages > or = 20 years Optimal: <100 mg/dL Near optimal: 100-129 mg/dL Borderline high: 130-159 mg/dL High: >160 mg/dL Calculated using the Ike LDL-C estimating equation. This equation was implemented on 2023. Prior to this date LDL-C was estimated using the Friedewald equation. Literature References: 1. Expert Panel on Integrated Guidelines for Cardiovascular Health and Risk Reduction in Children and Adolescents. Pediatrics 2011;128:S213 2. NCEP Expert Panel. Circulation 2004;110:227 3. Ike Baker et al. OMAIRA Cardiol. 2020 September 01;5(5):540-548. doi: 10.1001/jamacardio.2020.0013 Current Interpretive Data was last revised on 2023. Non-HDL Cholesterol 81 mg/dL [facility] Comment: Interpretive Data Ages < or = [...] was last revised on 2017. Chol/HDL ratio 5 [facility] Blood 12/14/2024 9:12 AM CDT 12/14/2024 9:48 AM CDT Narrative [facility] - 12/14/2024 4:15 PM CDT reflex us Nabil Balderas Jr., MD LAB BLOOD ORDERABLES F inal Result [facility] Department [place] [address] * (ABNORMAL) Comprehensive metabolic panel (12/14/2024 9:12 AM CDT) Sodium 136 135 - 145 mmol/L Potassium, pl 4.9 3.3 - 4.9 mmol/L [facility] Chloride 102 97 - 110 mmol/L [facility] CO2 24 22 - 32 mmol/L [facility] Anion gap 10 2 - 15 mmol/L [facility] BUN 17 6 - 25 mg/dL [facility] Creatinine 0.83 0.80 - 1.30 mg/dL [facility] Glucose 307(H) 70 - 199 mg/dL [facility] Comment: Interpretive Data Fasting glucose >/= 126 [...] interpretive data was last revised 2022. Calcium 8.6 8.5 - 10.3 mg/dL [facility] Bilirubin, total 1.3(H) 0.1 - 1.2 mg/dL [facility] Protein, pl 6.8 6.5 - 8.5 g/dL [facility] Albumin 3.3(L) 3.5 - 5.0 g/dL [facility] Alk phos 142(H) 40 - 130 Units/L [facility] ALT 10 7 - 55 Units/L [facility] AST 18 10 - 50 Units/L [facility] Blood 12/14/2024 9:12 AM CDT 12/14/2024 9:22 AM CDT us Nabil Balderas Jr., MD LAB BLOOD ORDERABLES F inal Result Performing Organization Address [facility] de Phone Number [facility] [place] [address] * (ABNORMAL) POCT glucose (12/14/2024 7:56 AM CDT) Glucose, POC 272(H) 70 - 199 mg/dL Blood 12/14/2024 7:56 AM CDT 12/14/2024 7:56 AM CDT us Nabil Balderas Jr., MD LAB POCT ORDERABLES - DEVICE Final Result Performing Organization Address [facility] de Phone Number [facility] [place] [address] * (ABNORMAL) POCT glucose (12/14/2024 2:32 AM CDT) Glucose, POC 283(H) 70 - 199 mg/dL Blood 12/14/2024 2:32 AM CDT 12/14/2024 2:32 AM CDT us Grey Amanda MD LAB POCT ORDERABLES - NBA CE Final Result Performing Organization Address [facility] de Phone Number [facility] [email or web address] [address] * POCT glucose (12/13/2024 10:38 PM CDT) Glucose, POC 197 70 - 199 mg/dL Blood 12/13/2024 10:3 8 PM CDT 12/13/2024 10:38 PM CDT us Valeriano Torres MD LAB POCT ORDERABLES - DEVIC E Final Result [facility] Department [place] [address] * POCT glucose (12/13/2024 5:17 PM CDT) Glucose, POC 130 70 - 199 mg/dL Blood 12/13/2024 5:17 PM CDT 12/13/2024 5:17 PM CDT us Thai Mejia MD LAB POCT ORDERABLES - DEVICE Final Result Performing Organization Address [facility] Co de Phone Number [facility] [place] [address] * US RUQ (12/13/2024 4:00 PM CDT) Anatomical Region Laterality Modality Abdomen N/A Ultrasound 12/13/2024 4:12 PM CDT Impressions 12/13/2024 4:54 PM CDT 1. Cirrhotic liver morphology. The intrahepatic bile ducts appear more conspicuous on this study which may relate to scanning technique or may represent worsened intrahepatic biliary ductal dilatation of uncertain chronicity. Recommend obtaining an MRCP study if clinically feasible. 2. Cholelithiasis without sonographic evidence of cholecystitis. Dictated by: Kiya Eugene M.D. The radiology attending physician has personally reviewed this study, and had reviewed and/or edited this written report and agrees with it. Electronically signed by: Raffaele Briceño M.D. Narrative 12/13/2024 4:54 PM CDT EXAMINATION: LIVER SONOGRAM HISTORY: Right upper quadrant pain; history of TIPS COMPARISON: Abdominal ultrasound 07/05/[address] abdomen and pelvis 01/20/2024 FINDINGS: Liver: The liver is normal in size. The echotexture is coarse. The echogenicity is increased. There is mild surface nodularity. No focal solid lesions are visualized. Gallbladder: The gallbladder is mildly distended. Sludge and gallstones are noted filling the gallbladder neck. There is no gallbladder wall thickening. There is no sonographic Espinoza's sign. Bile Ducts: Bladder is well The intrahepatic bile ducts appear more conspicuous on this study which may relate to scanning technique or may represent worsened intrahepatic biliary ductal dilatation of uncertain chronicity. The diameter of the common duct is 4 mm in the proximal segment and 4 mm in the mid segment. Other Findings: There is small volume ascites. A TIPS shunt is in place. Procedure Note Raffaele Briceño MD - 12/13/2024 EXAMINATION: LIVER SONOGRAM HISTORY: Right upper quadrant pain; history of TIPS COMPARISON: Abdominal ultrasound 07/05/[address] abdomen and pelvis 01/20/2024 FINDINGS: Liver: The liver is normal in size. The echotexture is coarse. The echogenicity is increased. There is mild surface nodularity. No focal solid lesions are visualized. Gallbladder: The gallbladder is mildly distended. Sludge and gallstones are noted filling the gallbladder neck. There is no gallbladder wall thickening. There is no sonographic Espinoza's sign. Bile Ducts: Bladder is well The intrahepatic bile ducts appear more conspicuous on this study which may relate to scanning technique or may represent worsened intrahepatic biliary ductal dilatation of uncertain chronicity. The diameter of the common duct is 4 mm in the proximal segment and 4 mm in the mid segment. Other Findings: There is small volume ascites. A TIPS shunt is in place. IMPRESSION: 1. Cirrhotic liver morphology. The intrahepatic bile ducts appear more conspicuous on this study which may relate to scanning technique or may represent worsened intrahepatic biliary ductal dilatation of uncertain chronicity. Recommend obtaining an MRCP study if clinically feasible. 2. Cholelithiasis without sonographic evidence of cholecystitis. Dictated by: Kiya Eugene M.D. The radiology attending physician has personally reviewed this study, and had reviewed and/or edited this written report and agrees with it. Electronically signed by: Raffaele Briceño M.D. us Raffaele Mariee MD IMG US PROCEDURES Final R esult * eGFR (12/13/2024 2:37 PM CDT) eGFR >90 >=60 mL/min/1. 73 [...] interpretive data was last reviewed 2021. Blood 12/13/2024 2:37 PM CDT 12/13/2024 2:55 PM CDT us Raffaele Mariee MD LAB BLOOD ORDERABLES Anastasiya enciso Result [facility] Department [place] [address] * (ABNORMAL) Differential, auto (12/13/2024 2:37 PM CDT) Neutrophil abs 3.11 1.50 - 6.50 K/cumm Imm gran abs 0.02 0.00 - 0.10 K/cumm [facility] Lymphocyte abs 0.40(L) 0.80 - 3.30 K/cumm [facility] Monocyte abs 0.36 0.20 - 0.80 K/cumm [facility] Eosinophil abs 0.09 0.00 - 0.50 K/cumm [facility] Basophil abs 0.04 0.00 - 0.10 K/cumm [facility] Neutrophil pct 77.3 % [facility] Comment: Interpretive Data Percent cell count reference ranges are not reported, since discordance with absolute values may lead to misinterpretation of CBC data. Current Interpretive Data was last revised on 2017. Imm gran pct 0.5 % [facility] Comment: Interpretive Data Percent cell count reference ranges are not reported, since discordance with absolute values may lead to misinterpretation of CBC data. Current Interpretive Data was last revised on 2017. Lymphocyte pct 10.0 % [facility] Comment: Interpretive Data Percent cell count reference ranges are not reported, since discordance with absolute values may lead to misinterpretation of CBC data. Current Interpretive Data was last revised on 2017. Monocyte pct 9.0 % [facility] Comment: Interpretive Data Percent cell count reference ranges are not reported, since discordance with absolute values may lead to misinterpretation of CBC data. Current Interpretive Data was last revised on 2017. Eosinophil pct 2.2 % [facility] Comment: Interpretive Data Percent cell count reference ranges are not reported, since discordance with absolute values may lead to misinterpretation of CBC data. Current Interpretive Data was last revised on 2017. Basophil pct 1.0 % [facility] Comment: Interpretive Data Percent cell count reference ranges are not reported, since discordance with absolute values may lead to misinterpretation of CBC data. Current Interpretive Data was last revised on 2017. Blood 12/13/2024 2:37 PM CDT 12/13/2024 2:55 PM CDT Raffaele Mariee MD LAB BLOOD ORDERABLES Anastasiya enciso Result [facility] Department [place] [address] * (ABNORMAL) CBC with auto differential (12/13/2024 2:37 PM CDT) Pathologist [facility] WBC 4.02 3.80 - 9.90 K/cumm Hgb 13.3 13.0 - 17.5 g/dL [facility] Hct 41.3 38.9 - 50.3 % [facility] Plt 56(L) 150 - 400 K/cumm [facility] Comment:No clot detected in sample. MPV Not Measured 9.1 - 12.3 fL [facility] RBC 5.39 4.30 - 5.80 M/cumm [facility] MCV 76.6(L) 81.3 - 96.4 fL [facility] MCH 24.7(L) 27.1 - 33.3 pg [facility] MCHC 32.2(L) 32.3 - 35.7 g/dL [facility] RDW CV 15.8(H) 11.1 - 14.9 % [facility] RDW SD 42.3 35.7 - 48.1 fL [facility] NRBC abs 0.00 0.00 - 0.01 K/cumm [facility] Blood 12/13/2024 2:37 PM CDT 12/13/2024 2:55 PM CDT Raffaele Mariee MD LAB BLOOD ORDERABLES Anastasiya l Result Performing Organization Address [facility] de Phone Number [facility] [email or web address] [address] * aPTT (12/13/2024 2:37 PM CDT) aPTT 31 26 - 38 sec Comment: Interpretive Data Heparin therapeutic range: 66.0 - 100.0 seconds. Range based on correlation with therapeutic heparin activity range of 0.3 - 0.7 Units/mL. Current interpretive data was last revised on 2023. Blood 12/13/2024 2:37 PM CDT 12/13/2024 2:47 PM CDT Raffaele Mariee MD LAB BLOOD ORDERABLES Anastasiya l Result Performing Organization Address [facility] Co de Phone Number [facility] [email or web address] [address] * (ABNORMAL) Protime-INR (12/13/2024 2:37 PM CDT) PT 14.3(H) 10.2 - 13.5 sec INR 1.27(H) 0.90 - 1.20 [facility] Comment: Interpretive data Oral anticoagulant therapeutic ranges: Venous thromboembolism prophylaxis or treatment: 2.0-3.0 CARDIOLOGY Standard range: 2.0-3.0 High-intensity range: 2.5-3.5 Refer to indication-specific guidelines for appropriate target ranges for prosthetic heart valve replacement. Current interpretive data was last revised on 2019. Blood 12/13/2024 2:37 PM CDT 12/13/2024 2:47 PM CDT Raffaele Mariee MD LAB BLOOD ORDERABLES Anastasiya l Result Performing Organization Address City/[facility] Co de Phone Number [facility] [email or web address] [address] * Type and screen (12/13/2024 2:37 PM CDT) Pathologist [facility] [place] Steve, indirect Negative ABO Rh A Positive [facility] Blood 12/13/2024 2:37 PM CDT 12/13/2024 2:50 PM CDT Narrative [facility] - 12/13/2024 3:47 PM CDT Has the patient had Daratumumab or Isatuximab in the past 6 months?->Unknown Raffaele Mariee MD LAB BLOOD BANK TEST ORDER SELINA Final Result Performing Organization Address [facility] Co de Phone Number [facility] [email or web address] [address] * Lipase (12/13/2024 2:37 PM CDT) Pathologist [facility] [place] Lipase 11 10 - 99 Units/L Blood 12/13/2024 2:37 PM CDT 12/13/2024 2:55 PM CDT Raffaele Mariee MD LAB BLOOD ORDERABLES Anastasiya l Result Performing Organization Address [facility] Co de Phone Number [facility] Department [place] [address] * (ABNORMAL) Comprehensive metabolic panel (12/13/2024 2:37 PM CDT) Sodium 139 135 - 145 mmol/L Potassium, pl 5.0(H) 3.3 - 4.9 mmol/L [facility] Comment:Hemolyzed; Potassium value may be falsely elevated by as much as 0.6-1.0 mmol/L. Suggest redraw and reanalysis. Chloride 105 97 - 110 mmol/L [facility] CO2 24 22 - 32 mmol/L [facility] Anion gap 10 2 - 15 mmol/L [facility] BUN 13 6 - 25 mg/dL [facility] Creatinine 0.84 0.80 - 1.30 mg/dL [facility] Glucose 192 70 - 199 mg/dL [facility] Comment: Interpretive Data Fasting glucose >/= 126 [...] interpretive data was last revised 2022. Calcium 8.8 8.5 - 10.3 mg/dL [facility] Bilirubin, total 1.6(H) 0.1 - 1.2 mg/dL [facility] Protein, pl 7.5 6.5 - 8.5 g/dL [facility] Albumin 3.4(L) 3.5 - 5.0 g/dL [facility] Alk phos 151(H) 40 - 130 Units/L [facility] ALT 10 7 - 55 Units/L [facility] AST 45 10 - 50 Units/L [facility] Comment:Hemolyzed; result ma y be falsely elevated Blood 12/13/2024 2:37 PM CDT 12/13/2024 2:55 PM CDT us Raffaele Mariee MD LAB BLOOD ORDERABLES Anastasiya enciso Result [facility] Department [email or web address] [address] * POCT glucose (12/13/2024 2:12 PM CDT) [facility] Signature Glucose, POC 179 70 - 199 mg/dL Blood 12/13/2024 2:12 PM CDT 12/13/2024 2:12 PM CDT Result [facility] Notinfile Unknown LAB POCT ORDERABLES - DEVICE F inal Result Performing Organization Address [facility] de Phone Number [facility] [email or web address] [address] * (ABNORMAL) Hemoglobin A1c (11/23/2023 8:40 AM CDT) [facility] Hgb A1C 10.0(H) 4.0 - 5.6 % Estimated Average Glucose 240 mg/dL [facility] Comment: The ADA recommends reporting an [...] ORDERABLES Fi nal Result Performing Organization Address [facility] Co de Phone Number [facility] [email or web address] [address] * Albumin Creatinine Ratio, Urine (05/20/2021 9:36 AM CONTROL DIRECTOR) [facility] Signature Albumin Ur <12.0 mg/L [facility] Comment: Interpretive Data No reference range established. Current interpretive data was last revised 2018. Creatinine Ur 47.6 mg/dL [facility] Comment: Interpretive Data No reference range established. Current interpretive data was last revised 2018. Albumin Creatinine Ratio, Ur <25 1 - 29 mg/g [facility] M[facility] Urine 05/20/2021 9:36 AM CONTROL DIRECTOR 05/20/2021 7:41 PM CONTROL DIRECTOR Simon Lundberg MD LAB URINE ORDERABLES Final Result Performing Organization Address City/State/ZIP Co dc Phone Number [facility] [address] [address] Department [place] [address] * COLONOSCOPY (12/17/2020 10:24 AM CDT) Anatomical Region Laterality Modality Other Narrative Procedure Note Elian Gross MD - 12/17/2020 10:24 AM CDT ENDOSCOPY LAB Patient Name: Camilo Curry Procedure Date: 12/17/2020 10:24 AM Date of : 1970 Admit Type: Outpatient Age: 50 Gender: Male Attending MD: Elian Vivar M.D. Room: [facility] ENDOSCOPY ROOM 02 Note Status: Finalized Procedure: Colonoscopy Indications: Unexplained iron deficiency anemia Providers: Elian Draper M.D. Referring MD: Elianthuy Draper M.D. Medicines: General Anesthesia Complications: No [...] the physician, the nurse, the anesthesiologist, the er medical technician and thetechnician in the pre-procedure area [...] The scope was passed under direct vision.The [id number] was introduced through the anusand advanced to the hepatic flexure. The colonoscopywas performed without difficulty. The patient tolerated the procedure well. The quality of the bowel preparation was unsatisfactory. The quality of the bowel preparation was evaluated using the BBPS(Vidor Bowel Preparation Scale) with scores of: RightColon [...] 10:24 AM us Elian Draper MD ENDOSCOPY AK OCEDURES Final Result * Serum Hepatitis panel (08/23/2015 5:23 PM CDT) HBV surface ag Negative NEG HISTO RICAL RESULTS HCV ab Negative NEG HISTORICAL RESULTS Comment: Interpretive Data If confirmation is required, call Laboratory Customer Service to request sample to be sent to [facility] for Hepatitis C Virus (HCV) RNA Detection and Quantitation by Real-Time Reverse It Software Engineer-PCR (RT-PCR). Current interpretive data was last revised [...] Most Recently Relevant to Health Maintenance [facility] AETNA [facility] [place] Advance Directives For more information, please contact: [phone] * Full Code (Latest Code Status on File) Date Activated Date Inactivated Comments 12/14/2024 9:15 AM 12/14/2024 3:57 PM * Full Code Date Activated Date Inactivated Comments 08/23/2021 7:07 AM 08/23/2021 12:49 PM * Full Code Date Activated Date Inactivated Comments 08/23/2021 7:07 AM 08/23/2021 7:07 AM * Full Code Date Activated Date Inactivated Comments 01/10/2021 7:59 AM 01/10/2021 3:38 PM * Full Code Date Activated Date Inactivated Comments 12/17/2020 9:18 AM 12/17/2020 4:00 PM Care Teams Bolt Machine Operator Relationship Specialty Start Date End Date Braydon Pavon PA [address] [place] [address] PCP - General 08/23/21 [place] [address] [address] [place] [address] Consulting Physician Endocrinology 05/20/21 [place] [address] [address] [place] [address] Consulting Physician Internal Medicine 05/20/21
--- OUTSIDE RECORDS SUMMARY | 2025-01-06 08:29 | XMS_ITS | Clinical Summary ---
Author Organization [facility] Address [address] [place] [address] Care Team Providers Care Director Cardiovascular Name Role Phone Braydon Pavon Primary Care Provider [phone] Source Comments [facility],non-owned Affiliates and Associated Physician Practices is amultiple site organization consisting of ambulatory clinics and hospital sitesin [place], [place], [place] and [place]. This disclosure is being madepursuant to the Care Everywhere program and may not contain all information available regarding this patient. Last updated 18.[facility] [employer] Data Allergies Active Allergy Reactions Criticality Noted Date [...] CONFIRMED WITH [facility] FAVIAN [phone], Reason: Provider adjusted, Reported on 06/09/2024 blood [...] dissolve on the tongue Active HYDROcodone-ac etaminophen ([place]) 10-325 MG tablet Take 1 (one) tablet [...] Insulin Regular Human (HUMULIN R U-500 IKPEN HI) Inject 200 Units subcutaneously 3 times daily [...] care, and heating? Not very hard 06/08/2024 [facility] [place] [facility] - Occupational Stress [...] any time in the past [address] [facility], were you homeless or living in a penitentiary (including now)? No 06/08/2024 Sex and Gender Information Value Date Recorded Sex Assigned at Not on file Legal Sex Male 8:18 AM FURNACE UNLOADER Gender Identity Not on file Sexual Orientation Not on file Last Filed Vital Signs Vital Sign Reading Time Taken Comments Blood Pressure 110/69 06/10/2024 3:45 PM FURNACE UNLOADER Pulse 81 06/10/2024 3:45 PM FURNACE UNLOADER Temperature 36.8 C (98.2 F) 06/10/2024 3:45 PM FURNACE UNLOADER Respiratory Rate 19 06/10/2024 3:45 PM FURNACE UNLOADER Oxygen Saturation 94% 06/10/2024 3:45 PM FURNACE UNLOADER Inhaled Oxygen Concentration - - Weight 99.8 kg (220 lb) 06/08/2024 3:47 PM FURNACE UNLOADER Height 170.2 cm (5' 7) 06/08/2024 3:47 PM FURNACE UNLOADER Body Mass Index 34.46 06/08/2024 3:47 PM FURNACE UNLOADER Plan of Treatment Health Maintenance Due Date [...] VACCINE (1 of 2) 2020 DEPRESSION SCREENING 05/04/2024 DIABETES-HGB A1C 12/07/2024 06/09/2024, , 11/23/2023, Additional history exists COVID-19 VACCINE (3 - 2024- season) 2025 12/29/2020, 12/08/2020 INFLUENZA VACCINE (#1) 2025 DIABETES - URINE [...] (CALCIUM TOTAL) AM Draw 06/10/2024 4:45 AM FURNACE UNLOADER HEMOGLOBIN A1C Routine 06/09/2024 1:59 AM FURNACE UNLOADER from Last 3 Months or Most Recently Relevant to Health Maintenance Results * (ABNORMAL) BASIC METABOLIC PANEL (CALCIUM TOTAL) (06/10/2024 4:45 AM FURNACE UNLOADER) Glucose 107(H) 70 - 99 mg/dL 06/10/2024 5:25 AM FURNACE UNLOADER [facility] Sodium 139 136 - 145 mmol/L 06/10/2024 5:25 AM FURNACE UNLOADER [facility] Potassium 3.4(L) 3.5 - 5.1 mmol/L 06/10/2024 5:25 AM FURNACE UNLOADER [facility] Chloride 107 98 - 107 mmol/L 06/10/2024 5:25 AM FURNACE UNLOADER [facility] CO2 22 22 - 29 mmol/L 06/10/2024 5:25 AM FURNACE UNLOADER [facility] Calcium 8.2(L) 8.4 - 10.4 mg/dL 06/10/2024 5:25 AM [facility] Anion Gap 10 6 - 16 mmol/L 06/10/2024 5:25 AM [facility] BUN 15 7 - 26 mg/dL 06/10/2024 5:25 AM [facility] Creatinine 0.70(L) 0.72 - 1.25 mg/dL 06/10/2024 5:25 AM [facility] eGFR by CKD-EPI >90 >=90 mL/min/1.7 3 m2 06/10/2024 5:25 AM [facility] Blood BLOOD SPECIMEN / Unknown Venipuncture / Unknown 06/10/2024 4:45 AM FURNACE UNLOADER 06/10/2024 5:01 AM [facility] Olimpia No MD LAB - CHEMISTRY ORDERABLES Fi nal Result [facility] [address] [place] [address] * (ABNORMAL) HEMOGLOBIN A1C (06/09/2024 1:59 AM [facility]) Hemoglobin A1c 9.1(H) <5.7 % 06/09/2024 2:28 AM [facility] Estimated Average Glucose 214 mg/dL 06/09/2024 2:28 AM [facility] Blood BLOOD SPECIMEN / Unknown Venipuncture / Unknown 06/09/2024 1:59 AM FURNACE UNLOADER 06/09/2024 2:15 AM [facility] Narrative [facility] - 06/09/2024 2:28 AM [facility] HbA1c Interpretation: Normal: < 5.7% Pre-diabetes: [...] LAB - CHEMISTRY ORDERABLES Anastasiya enciso Result [facility] [address] [place] [address] from Last 3 Months or Most Recently Relevant to Health Maintenance Insurance MEDICAID AETNA [facility] Advance Directives * Full Code (Latest Code Status on File) Date Activated Date Inactivated Comments 06/08/2024 3:48 PM 06/10/2024 7:18 PM Care Teams Director Cardiovascular Relationship Specialty Start Date End Date Braydon Pavon PA [address] [place] [address] PCP - General Physician Ethylene Oxide Panelboard Operator 3/12/24
--- OUTSIDE RECORDS SUMMARY | 2025-01-06 08:29 | XMS_ITS | Encounter Summary ---
Author Organization [facility] Address [address] [place] [address] Phone Care Team Providers Care Seafood Process Worker Name Role Phone Nacho Rodriguez MD Unavailable [phone] Elian Gross MD Unavailable Braydon Pavon Primary Care Provider [phone] Encounter Details Date Type Department Care Team (Late st Contact Info) Description 01/05/2025 Documentation [facility] [address] Advanced Medicine 12th [place] [address] [place] [address] Sean Rodas, BETHANY Social History Tobacco Use Types Packs/Day Years [...] on file Legal Sex Male 2:52 PM PRODUCT MANAGEMENT INTERN Gender Identity Male 10/29/2020 12:37 PM CDT Sexual Orientation Straight 10/29/2020 12 :37 PM CDT documented as of this encounter Progress Notes * Sean Rodas, BETHANY - 01/05/2025 10:42 AM CDT Images from the original note were not included. Tasked to pool for scheduling liver US due in Jun 2025. Reminder set for 04.03.25 01.05.25: Nilton Whatley MD Newton, Bruce Anthony, RN Yes, Next liver ultrasound due June 2025 Thanks documented in this encounter Plan of Treatment Not on file documented as of this encounter Visit Diagnoses Not on filedocumented in this encounter Care Teams Seafood Process Worker Relationship Specialty Start Date End Date Braydon Pavon PA [address] [place] [address] PCP - General 08/23/21 [place] [address] [address] [address] Consulting Physician Endocrinology 05/20/21 [place] [address] [address] [address] Consulting Physician Internal Medicine 05/20/21 documented as of this encounter
--- OUTSIDE RECORDS SUMMARY | 2025-01-06 08:29 | XMS_ITS | Encounter Summary ---
Author Organization [facility] Healthcare Address [address] [place] [address] Care Team Providers Care Assurance Senior Manager Name Role Phone Braydon Pavon Primary Care Provider [phone] Nikolay Lancaster MD Unavailable [phone] Simon Lundberg MD Primary Care Provider [phone] Nacho Rodriguez MD Unavailable [phone] Elian Gross MD Unavailable Braydon Pavon Primary Care Provider [phone] Encounter Details Date Type Department Care Team (Late st Contact Info) Description 09/14/2020 Telephone [facility] [address] [place], [place] [id number] Trice Aldana, RT Social History Tobacco Use [...] on file Legal Sex Male 2:52 PM COOK SHIP Gender Identity Male 10/29/2020 12:37 PM CDT Sexual Orientation Straight 10/29/2020 12 :37 PM CDT documented as of this encounter Plan of Treatment Not on file documented as of this encounter Visit Diagnoses Not on filedocumented in this encounter Care Teams Assurance Senior Manager Relationship Specialty Start Date End Date Braydon Paovn PA [address] [place] [address] PCP - General Family Practice 05/09/20 05/19/21 Simon Lundberg MD [address] [place] [address] PCP - General Family Medicine 05/20/21 08/22/21 Braydon Pavon PA [address] [place] [address] PCP - General 08/23/21 Nikolay Lancaster MD [address] [place] [address] 05/09/20 05/19/21 [place] [address] [address] [facility] [address] [place] [address] Consulting Physician Endocrinology 05/20/21 [place] [address] [address] [facility] [address] [place] [address] Consulting Physician Internal Medicine 05/20/21 documented as of this encounter
--- OUTSIDE RECORDS SUMMARY | 2025-01-06 08:29 | XMS_ITS | Encounter Summary ---
Author Organization [facility] Address [address] [place] [address] Care Team Providers Care Machined Parts Metal Sprayer Name Role Phone None, Provider Primary Care Provider Braydon Piedra Primary Care Provider [phone] Encounter Details Date Type Department Care Team (Late st Contact Info) Description 10/09/2018 Abstract [facility] [address] [place] [address] , Generic Conversion, Social History Tobacco Use [...] on filedocumented in this encounter Care Teams Machined Parts Metal Sprayer Relationship Specialty Start Date End Date None, ProviderMD PCP - General 02/08/19 03/01/19 Braydon Pavon PA PCP - General [facility] 03/02/19 documented as of this encounter
--- OUTSIDE RECORDS SUMMARY | 2025-01-06 08:29 | XMS_ITS | Encounter Summary ---
Author Organization [facility] Healthcare Address [address] [place] [address] Care Team Providers Care Boiler Inspector Name Role Phone Nacho Rodriguez MD Unavailable [phone] Elian Gross MD Unavailable Braydon Pavon Primary Care Provider [phone] Encounter Details Date Type Department Care Team (Late st Contact Info) Description 12/14/2024 Hospital Encounter [facility] Operating Room [address] [place] [id number] Valeriano Torres MD [address] [facility] [address] [place] [address] Social History Tobacco Use Types Packs/Day Years [...] file Legal Sex Male 2:52 PM MANAGER OF PATIENT Gender Identity Male 10/29/2020 12:37 PM CDT Sexual Orientation Straight 10/29/2020 12 :37 PM CDT documented as of this encounter Plan of Treatment Not on file documented as of this encounter Visit Diagnoses Diagnosis Biliary dyskinesia Other specified disorder of gallbladder Gallstones Calculus of gallbladder without mention of cholecystitis or obstruction documented in this encounter Admitting Diagnoses Diagnosis Biliary dyskinesia Other specified disorder of gallbladder Gallstones Calculus of gallbladder without mention of cholecystitis or obstruction documented in this encounter Care Teams Boiler Inspector Relationship Specialty Start Date End Date Braydon Pavon PA [address] [place] [address] PCP - General 08/23/21 [place] [address] [address] [address] Consulting Physician Endocrinology 05/20/21 [place] [address] [address] [address] Consulting Physician Internal Medicine 05/20/21 documented as of this encounter
--- OUTSIDE RECORDS SUMMARY | 2025-01-06 08:29 | XMS_ITS | Encounter Summary ---
Author Organization [facility] Address [facility] [facility] [place] [address] Care Team Providers Care Adapted Physical Education Aide Name Role Phone Braydon Pavon Primary Care Provider [phone] Nikolay Lancaster MD Primary Care Provider [phone] Braydon Pavon Primary Care Provider [phone] Reason for Visit * Reason Onset Date Comments MEDICATION REFILL 09/08/2018 Encounter Details Date Type Department Care Team (Late st Contact Info) Description 09/08/2018 Refill [facility] [address] [address] [place] [address] Edmond Choi MD [address] [facility] [address] [facility] [place] [address] MEDICATION REFILL Social History Tobacco Use Types Packs/Day Years Used Date Smoking Tobacco: Former Smokeless Tobacco: Never Alcohol Use Standard Drinks/Week Comments No 0 (1 standard drink = 0.6 oz pur e alcohol) Sex and Gender Information Value Date Recorded Sex Assigned at Not on file Legal Sex Male 8:18 AM EMBROIDERY WORKER Gender Identity Not on file Sexual Orientation Not on file documented as of this encounter Plan of Treatment Not on file documented as of this encounter Visit Diagnoses Not on filedocumented in this encounter Additional Health Concerns Infection Onset Date Last Indicated Resolved Time COVID-19 Under Investigation 06/08/2024 06/08/2024 06/08/2024 4:31 PM EMBROIDERY WORKER Influenza A or B Comment:OSH result 06/08/2024 06/09/2024 06/15/2024 4:[address] documented as of this encounter Care Teams Adapted Physical Education Aide Relationship Specialty Start Date End Date Braydon Pavon PA [address] [place] [address] PCP - General Physician Composer Teaching Artist 05/19/18 10/03/18 Nikolay Lancaster MD [address] [place] [address] PCP - General 10/04/18 07/13/23 Braydon Pavon PA [address] [place] [address] PCP - General Physician Composer Teaching Artist 07/14/23 documented as of this encounter
--- OUTSIDE RECORDS SUMMARY | 2025-01-06 08:29 | XMS_ITS | Encounter Summary ---
Author Organization [facility] Address [address] [place] [address] Phone Care Team Providers Care Toll Repairer Central Office Name Role Phone Nacho Rodriguez MD Unavailable [phone] Elian Gross MD Unavailable Braydon Pavon Primary Care Provider [phone] Reason for Visit * Reason Onset Date Comments Medical Question/Miscellaneous 12/19/2024 Encounter Details Date Type Department Care Team (Late st Contact Info) Description 12/19/2024 Telephone [facility] - [facility]im[facility] [address] [facility] Advanced Medicine [address]th [address], [place] [address] Rina Edmondson MD [address] [place] [address] Medical Question/Miscellaneous Social History Tobacco Use Types Packs/Day Years [...] on file Legal Sex Male 2:52 PM 1ST PRESSMAN ON [employer] Gender Identity Male 10/29/2020 12:37 PM CDT Sexual Orientation Straight 10/29/2020 12 :37 PM CDT documented as of this encounter Miscellaneous Notes * Telephone Encounter - Brittny Waterman - 12/19/2024 10:13 AM CDT Patient Query: Was an attempt to transfer to the assigned clinical staff or backline? Yes was advised to send a TE Reason for call?: Patient called in looking to schedule gallbladder surgery advised that he is a high risk case referral made and attestation sent (Read message back to caller and ask them if there is anything else they'd like to add to the message) Who is the caller: Camilo Curry What is the best number for them to contact for a call back: [phone] Last office visit: Visit date not found Date of Surgery: 12/17/2020 documented in this encounter Plan of Treatment Not on file documented as of this encounter Visit Diagnoses Not on filedocumented in this encounter Care Teams Toll Repairer Central Office Relationship Specialty Start Date End Date Braydon Pavon PA [address] [place] [address] PCP - General 08/23/21 [place] [address] [address] [facility] [address] [place] [address] Consulting Physician Endocrinology 05/20/21 [place] [address] [address] [facility] [address] [place] [address] Consulting Physician Internal Medicine 05/20/21 documented as of this encounter
--- OUTSIDE RECORDS SUMMARY | 2025-01-06 08:29 | XMS_ITS | Clinical Summary ---
Author Organization [facility] Address [address] [place] [address] Phone Care Team Providers Care Child Development Consultant Name Role Phone Braydon Pavno Kunal NEAL Primary Care Provider [phone] Vikram Mora MD Unavailable Riddhi Bello APRN, BEE PRODUCER Unavailable Andrea Hawkins MD Unavailable [phone] Allergies Active Allergy Reactions Criticality Noted Date [...] route. 1 Active Insulin Pen Needle (Pen [place]) 32G X 4 MM Misc Inject 3 times daily 0 Active traZODone (DESYREL) 100 MG Tablet nightly. 3 Active HYDROcodone-bella taminophen (NORCO) 7.5-325 MG Tablet Take 10 Tablets by mouth three times a week. Active ondansetron (ZOFRAN-ODT) 4 MG TABLET DISPERSIBLE Take 1 Tablet by mouth every 8 hours as needed for Nausea - 1st line. 10 Tablet 4 Active Continuous Blood Gluc Soaking Tank Worker (Dexcom G7 Soaking Tank Worker) Device Check blood glucose before each meal and at bedtime 1 Each 4 Active HYDROcodone-bella taminophen ([place]) 10-325 MG Tablet Take 1 Tablet by [...] Description 10/31/2024 10:30 AM CDT Office Visit [facility] - Neurology 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 [address] [place] [address] Andrea Hawkins MD [address] [place] [address] Health Maintenance Due Date Last Done Comments Diabetes: Eye Exam 1970 Hepatitis C Virus (HCV) Screening 1970 TdaP Immunization 1970 Pneumococcal Immunization (50+ years) (1 of 2 - PCV) 1989 Cologuard 09/06/2015 Immunochemical Fecal Occult Blood 09/06/2015 Hepatitis B Immunization (3 of 3 - 19+ 3-dose series) 03/12/2016 11/09/2015, 09/10/2015 Zoster Immunization (1 of 2) 2020 Diabetes: Foot Exam 06/01/2024 06/01/2023 Diabetes: Hemoglobin A1c 12/07/2024 025, 05/31/2024, 11/23/2023, Additional history exists Influenza Immunization (#1) 2025 SARS-COV-2 Immunization ( - season) 2025 12/29/2020, 12/08/2020 Diabetes: Nephropathy Screening 10/31/2025 10/31/2024, 11/13/2023, 05/29/2023, [...] W/ ESTIMATED GLUCOSE STAT 05/20/2023 10:44 AM 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 TRUCK DRIVER from Last 3 Months or Most Recently Relevant to Health Maintenance Results * (ABNORMAL) CBC WITH AUTO DIFFERENTIAL (10/31/2024 11:44 AM CDT) WBC 6.91 4.00 - 12.00 10(3)/mcL 10/31/2024 12:38 PM CDT [facility] RBC 5.79 4.40 - 5.80 10(6)/mcL 10/31/2024 12:38 PM CDT [facility] HEMOGLOBIN (HGB) 15.2 13.0 - 16.5 g/dL 10/31/2024 12:38 PM CDT [facility] HEMATOCRIT (HCT) 47.2 38.0 - 50.0 % 10/31/2024 12:38 PM CDT [facility] MCV 81.5(L) 82.0 - 96.0 fL 10/31/2024 12:38 PM CDT [facility] MCH 26.3 26.0 - 32.0 pg 10/31/2024 12:38 PM CDT [facility] MCHC 32.2 31.0 - 36.0 g/dL 10/31/2024 12:38 PM CDT [facility] PLATELET COUNT 76(L) 140 - 440 10(3)/mcL 10/31/2024 12:38 PM CDT [facility] RDW 13.5 11.8 - 15.5 % 10/31/2024 12:38 PM CDT [facility] MPV 12.2 8.0 - 12.6 fL 10/31/2024 12:38 PM CDT [facility] NEUTROPHILS 79.2(H) 40.0 - 68.0 % 10/31/2024 12:38 PM CDT [facility] LYMPHOCYTES 10.1(L) 19.0 - 49.0 % 10/31/2024 12:38 PM CDT [facility] MONOCYTES 8.0 3.0 - 13.0 % 10/31/2024 12:38 PM CDT [facility] EOSINOPHILS 1.4 0.0 - 8.0 % 10/31/2024 12:38 PM CDT [facility] BASOPHILS 0.7 0.0 - 1.0 % 10/31/2024 12:38 PM CDT [facility] IMMATURE GRANULOCYTE 0.6(H) 0.0 - 0.4 % 10/31/2024 12:38 PM CDT [facility] Comment:Immature Granulocyte s includes Metamyelocytes, Myelocytes, and Promyelocytes. ABSOLUTE NEUTROPHILS 5.47(H) 1.40 - 5.30 10(3)/mcL 10/31/2024 12:38 PM CDT [facility] ABSOLUTE LYMPHOCYTES 0.70(L) 0.90 - 3.30 10(3)/mcL 10/31/2024 12:38 PM CDT [facility] ABSOLUTE MONOCYTES 0.55 0.10 - 0.90 10(3)/[facility] 10/31/2024 12:38 PM CDT [facility] ABSOLUTE EOSINOPHIL 0.10 0.00 - 0.50 10(3)/mcL 10/31/2024 12:38 PM CDT [facility] ABSOLUTE BASOPHILS 0.05 0.00 - 0.10 10(3)/[facility] 10/31/2024 12:38 PM CDT [facility] ABSOLUTE IMMATURE GRANULOCYTE 0.04(H) 0.00 - 0.03 10 (3) mcL. 10/31/2024 12:38 PM CDT [facility] NRBC PER 100 WBC 0 11/01/19 12:38 PM CDT [facility] Blood Venipuncture / Unknown 10/31/2024 11:44 AM CDT 10/31/2024 12:20 PM CDT us Andrea Hawkins MD HEMATOLOGY ORDERABLES Final Result Performing Organization Address [facility]/ZIP Co de Phone Number [facility] [address] [place] [address] * VITAMIN B12 (10/31/2024 11:44 AM CDT) VITAMIN B12 504 213 - 816 pg/mL 10/31/2024 2:02 PM CDT [facility] Blood Venipuncture / Unknown 10/31/2024 11:44 AM CDT 10/31/2024 12:20 PM CDT us Andrea Hawkins MD CHEMISTRY ORDERABLES Final R esult Performing Organization Address [facility] Co de Phone Number [facility] [address] [place] [address] * THYROID STIMULATING HORMONE (TSH) (10/31/2024 11:44 AM CDT) TSH 1.180 0.300 - 5.000 mIU/L 10/31/2024 2:03 PM CDT [facility] Blood Venipuncture / Unknown 10/31/2024 11:44 AM CDT 10/31/2024 12:20 PM CDT us Andrea Hawkins MD CHEMISTRY ORDERABLES Final R esult Performing Organization Address [facility]/ZIP Co de Phone Number [facility] [address] [place] [address] * FOLIC ACID (FOLATE) (10/31/2024 11:44 AM CDT) FOLATE 11.0 7.0 - 31.4 ng/mL 10/31/2024 2:02 PM CDT [facility] IS THE PATIENT REQUIRED TO BE FASTING? No 10/31/2024 2:02 PM CDT [facility] Blood Venipuncture / Unknown 10/31/2024 11:44 AM CDT 10/31/2024 12:20 PM CDT us Andrea Hawkins MD CHEMISTRY ORDERABLES Final R esult [facility] [address] [place] [address] * (ABNORMAL) CMP (COMPREHENSIVE METABOLIC PANEL) (10/31/2024 11:44 AM CDT) SODIUM 136 136 - 145 mmol/L 10/31/2024 1:57 PM CDT [facility] POTASSIUM 4.6 3.5 - 5.1 mmol/L 10/31/2024 1:57 PM CDT [facility] CHLORIDE 102 98 - 107 mmol/L 10/31/2024 1:57 PM CDT [facility] CO2, VENOUS 25 22 - 30 mmol/L 10/31/2024 1:57 PM CDT [facility] ANION GAP 13.6 <18.0 mmol/L 10/31/2024 1:57 PM CDT [facility] GLUCOSE 325(H) 70 - 99 mg/dL 10/31/2024 1:57 PM CDT [facility] BUN 17 8 - 26 mg/dL 10/31/2024 1:57 PM CDT [facility] CREATININE, BLOOD 1.10 0.70 - 1.30 mg/dL 10/31/2024 1:57 PM CDT [facility] BUN/CREATININE RATIO 15 12 - 20 ratio 10/31/2024 1:57 PM CDT [facility] TOTAL PROTEIN 7.8 6.0 - 8.0 g/dL 10/31/2024 1:57 PM CDT [facility] ALBUMIN 3.9 3.5 - 5.0 g/dL 10/31/2024 1:57 PM CDT [facility] A/G RATIO 1.0 1.0 - 2.2 10/31/2024 1:57 PM CDT [facility] CALCIUM 9.3 8.7 - 10.5 mg/dL 10/31/2024 1:57 PM CDT [facility] T BILI 1.3(H) 0.2 - 1.2 mg/dL 10/31/2024 1:57 PM CDT [facility] SGOT (AST) 21 <43 U/L 10/31/2024 1:57 PM CDT [facility] SGPT (ALT) 11 <56 U/L 10/31/2024 1:57 PM CDT [facility] ALKALINE PHOSPHATASE 96 40 - 150 U/L 10/31/2024 1:57 PM CDT [facility] IS THE PATIENT REQUIRED TO BE FASTING? No 10/31/2024 1:57 PM CDT [facility] GFR, ESTIMATED >60 >=60 10/31/2024 1:57 PM CDT [facility] Comment: Creatinine Clearance is the preferred criteria for selecting drug dose adjustments in renally impaired patients. The GFR is provided as additional pertinent clinical information. GFR is reported in mL/min/1.73 sq m. Calculation based on the Chronic Kidney Disease Epidemiology Collaboration (CKD- EPI) equation refit without adjustment for race. GFR, EST. >60 >=60 025 1:57 PM CDT [facility] GFR, EST. NONAFRICAN >60 >=60 10/31/2024 1:57 PM CDT [facility] Blood Venipuncture / Unknown 10/31/2024 11:44 AM CDT 10/31/2024 12:20 PM CDT us Andrea Hawkins MD CHEMISTRY ORDERABLES Final R esult [facility] [address] [place] [address] * (ABNORMAL) Hemoglobin A1C (05/20/2023 10:44 AM BOX TRUCK DRIVER) HGB-A1C 11.6(H) 4.0 - 6.0 % 05/20/2023 12:30 PM BOX TRUCK DRIVER [facility] Est Average Glucose 286.2 mg/dL 05/20/2023 12:30 PM BOX TRUCK DRIVER [facility] Blood Venipuncture / Unknown 05/20/2023 10:44 AM BOX TRUCK DRIVER 05/20/2023 11:01 AM BOX TRUCK DRIVER Narrative [facility] - 05/20/2023 12:30 PM BOX TRUCK DRIVER HEMOGLOBIN A1C: DIABETIC PATIENTS: WELL-CONTROLLED: 6.2 - 7.0 INTERMEDIATE WELL-CONTROLLED: 7.0 - 9.0 POORLY-CONTROLLED: >9.0 Felicitas Luz APRN, BEE PRODUCER CHEMISTRY ORDERABLES Final Result Performing Organization Address [facility] Co de Phone Number [facility] [address] [place] [address] from Last 3 Months or Most Recently Relevant to Health Maintenance Insurance MEDICAID [facility] [address] [place] [address] Care Teams Child Development Consultant Relationship Specialty Start Date End Date Braydon Pavon PAC [address] [place] [address] PCP - General Physician Cylinder Loader 06/22/18 Vikram Mora MD [address] [phone] Consulting Physician Endocrinology 05/21/23 Riddhi Bello APRN, BEE PRODUCER [address] [place] [address] Nurse Practitioner Advanced Practice Nurse 02/10/23 Andrea Hawkins MD [address] [place] [phone] Consulting Physician Neurology 10/31/24
== END 2025-01-06 08:24 | disposition home or self-care (01) ==
LOC: CHSIMG 08:24
PROVIDERS: PCP Physician Assistant; Visit Provider Internal Medicine Gastroenterology
DX: K74.60 Unspecified cirrhosis of liver (principal); K80.20 Calculus of gallbladder without cholecystitis without obstruction; K83.9 Disease of biliary tract, unspecified
CPT/HCPCS: 76705

== ENCOUNTER 2025-01-23 04:47 | Observation (INO) | payer OTHER, SELFPAY ==
[2025-01-23] VITALS (15 sets, daily range): BP systolic 104–164; BP diastolic 59–106; PULSE 65–131; RESP 15–32; TEMP 36.8–38.8; O2SAT 91–100; BMI 32.2
--- NOTE | ~2025-01-23 | CT_ITS ---
EXAMINATION: CT chest abdomen pelvis wo con DATE: 01/23/2025 07:18 INDICATION: Sepsis. Shortness of breath. TECHNIQUE: Computed tomography (CT) of the chest, abdomen, and pelvis was performed with 100 mL Omnipaque-350 intravenous contrast. Automated exposure control and iterative reconstruction technique were employed. The dose-length product was 1549.38 mGy-cm. COMPARISON: CT abdomen and pelvis dated 12/13/2024 FINDINGS: CHEST CT: Linear band of discoid atelectasis/scarring in lingula and left lower lobe. No, pleural effusion or pneumothorax. Mild cardiomegaly with no significant change in small pericardial effusion. Thoracic aorta is normal in caliber. No pathologically enlarged thoracic lymphadenopathy. Mild thoracic spondylosis with bridging osteophytes at multiple levels consistent with diffuse idiopathic skeletal hyperostosis (DISH). ABDOMEN/PELVIS CT: Nodular cirrhotic liver. Splenomegaly measuring up to 24.7 cm in maximal length which along with paraesophageal varices are consistent with secondary portal venous hypertension. Numerous splenic calcifications consistent with old granulomatous disease. Postoperative change of prior transjugular intrahepatic portosystemic shunt right portal vein to the renal vein at its confluence with the inferior vena cava. Multiple small calcified gallstones at the neck of the nondilated gallbladder. Pancreas and bilateral adrenal glands are normal. Subcentimeter low-attenuation left renal cyst. Additional 2.3 cm cyst at the right pelvic kidney. Bladder is normal. Uterus and bilateral adnexa are unremarkable. Again seen is mild wall thickening in the ascending colon which could be due to colitis or hepatic colopathy. No bowel obstruction. Normal appendix. Small to moderate amount of ascites most prominent along the left side of the abdomen. No evident abscess or free intraperitoneal gas. No pathologically enlarged abdominal or pelvic lymphadenopathy. Mild degenerative skeletal changes in the lumbar spine and pelvis. IMPRESSION: 1. Persistent mild wall thickening of the ascending colon which could be due to colitis either infectious or inflammatory in etiology or secondary to hepatic colopathy. 2. Cirrhosis with splenomegaly and paraesophageal varices consistent with secondary portal venous hypertension with transjugular intrahepatic portosystemic shunt (TIPS) in expected position. 3. Small to moderate amount of ascites likely related to liver disease. 4. Cholelithiasis. 5. Mild cardiomegaly with unchanged small pericardial effusion. Reviewed, dictated and finalized at location A. IMPRESSION: 1. Persistent mild wall thickening of the ascending colon which could be due to colitis either infectious or inflammatory in etiology or secondary to hepatic colopathy. 2. Cirrhosis with splenomegaly and paraesophageal varices consistent with secon becky portal venous hypertension with transjugular intrahepatic portosystemic sh unt (TIPS) in expected position. 3. Small to moderate amount of ascites likely related to liver disease. 4. Cholelithiasis. 5. Mild cardiomegaly with unchanged small pericardial effusion.
--- NOTE | ~2025-01-23 | XR_ITS ---
Examination: XR chest 1V portable Clinical History: SHORTNESS OF BREATH Comparison: 06/08/2024 Technique: Portable AP Findings: Cardiomegaly. Mildly increased interstitial markings. No acute bony abnormality. IMPRESSION: 1. Probable interstitial pulmonary edema. Reviewed, dictated and finalized at location R.
--- NOTE | 2025-01-23 04:49 | ED.SOB ---
HPI - SOB/Dyspnea General Chief Complaint: Shortness of Breath/Dyspnea Stated Complaint: sob Time Seen by Provider: 01/23/25 04:48 Source: patient and EMS Mode of arrival: EMS Limitations: no limitations History of Present Illness HPI Narrative: Patient is a 54-year-old male with recurrent episodes of shortness of breath here for a similar episode of shaking/asterixis of cirrhosis with associated shortness of breath which is getting better. He has lots of allergies. He has lots of anxiety. He has polypharmacy. Diabetes 2. Chronic back pain. Pancytopenia. Cirrhosis and BLAND. Gallbladder removal coming up soon for patient. He has been moving lately and doing gianna. MD elicited complaint: shortness of breath Pertinent past history: COPD, asthma and other (See above) Onset (ago): day(s) (One) Context: anxiety and other (Patient was at rest and started to have shortness of breath episode with anxiety and shaking/asterixis) Timing: constant Severity: similar to previous episodes Exacerbating factors: inspiration and stress Relieving factors: oxygen Known history of: COPD and asthma Associated symptoms: sputum production and chest congestion Treatment prior to arrival: oxygen Related Data Home oxygen amount: none Home Medications ?Medication ?Instructions ?Recorded ?Confirmed ?Last Taken ?Type albuterol sulfate 90 mcg/actuation 2 puff inhalation Q8-10H PRN 02/19/20 03/22/24 Unknown History aerosol inhaler Wheezing alprazolam 1 mg tablet 0.5 mg PO TID PRN Anxiety 09/04/20 03/22/24 Unknown History ondansetron HCl 4 mg tablet 4 mg PO BID PRN Nausea 09/04/20 03/22/24 Unknown History liraglutide 0.6 mg/0.1 mL (18 mg/3 See Rx Instructions .Route .COMPLEX 03/05/21 03/22/24 Unknown History mL) subcutaneous pen injector ([employer] 3-Anatoliy) hydroxyzine HCl 25 mg tablet 25 mg PO QID 06/20/23 03/22/24 Unknown History trazodone 100 mg tablet 100 mg PO BID 06/20/23 03/22/24 Unknown History blood sugar diagnostic (OneTouch 02/23/24 03/22/24 Unknown History Ultra Test strips) blood-glucose sensor (Dexcom G7 02/23/24 03/22/24 Unknown History Sensor device) carvedilol 3.125 mg tablet 3.125 mg PO DAILY 02/23/24 03/22/24 Unknown History dulaglutide 0.75 mg/0.5 mL 0.75 mg subcut DAILY 02/23/24 03/22/24 Unknown History subcutaneous pen injector (Trulicity) duloxetine 30 mg capsule,delayed 30 mg PO DAILY 02/23/24 03/22/24 Unknown History release famotidine 20 mg tablet 20 mg PO DAILY 02/23/24 03/22/24 Unknown History hydrochlorothiazide 25 mg tablet 25 mg PO DAILY 02/23/24 03/22/24 Unknown History hydrocodone 10 mg-acetaminophen 10 - 325 tablet PO DAILY 02/23/24 03/22/24 Unknown History 325 mg tablet insulin glargine 100 unit/mL (3 100 unit subcut DIRECTED 02/23/24 03/22/24 Unknown History mL) subcutaneous pen (Lantus Solostar U-100 Insulin) insulin lispro 100 unit/mL 100 unit subcut DIRECTED 02/23/24 03/22/24 Unknown History subcutaneous pen (Humalog KwikPen (U-100) Insulin) insulin regular hum U-500 conc 500 500 unit subcut DIRECTED 02/23/24 03/22/24 Unknown History unit/mL(3 mL) subcut pen (Humulin R U-500 (Conc) Insulin Kwikpen) lactulose 10 gram/15 mL oral 10 g PO DAILY 02/23/24 03/22/24 Unknown History solution (Enulose) metformin 500 mg tablet,extended 500 mg PO DAILY 02/23/24 03/22/24 Unknown History release 24 hr pen needle, diabetic 31 gauge x 02/23/24 03/22/24 Unknown History /16 (TRUEplus Pen Needle) pregabalin 200 mg capsule 200 mg PO DAILY 02/23/24 03/22/24 Unknown History Allergies Allergy/AdvReac Type Severity Reaction Status Date / Time aztreonam (Azactam) Allergy Intermediate Unknown Verified 01/23/25 04:57 ciprofloxacin (Cipro) Allergy Intermediate Unknown Verified 01/23/25 04:57 esomeprazole (Nexium) Allergy Intermediate Unknown Verified 01/23/25 04:57 octreotide Allergy Intermediate Unknown Verified 01/23/25 04:57 sulfanilamide Allergy Intermediate Unknown Verified 01/23/25 04:57 erythromycin base Allergy Unknown Unknown Verified 01/23/25 04:57 Penicillins Allergy Unknown Unknown Verified 01/23/25 04:57 Sulfa (Sulfonamide Allergy Unknown Unknown Verified 01/23/25 04:57 Antibiotics) duloxetine Allergy Unknown Verified 01/23/25 04:57 magnesium Allergy Unknown Verified 01/23/25 04:57 nisoldipine Allergy Unknown Verified 01/23/25 04:57 prochlorperazine Allergy Unknown Verified 01/23/25 04:57 IVP dye Allergy Intermediate Unknown Uncoded 01/23/25 04:57 Contrast Media Allergy Unknown Unknown Uncoded 06/08/24 07:33 Review of Systems Review of Systems: All systems reviewed & are unremarkable except as noted in HPI and below Constitutional: Constitutional: Reports no additional constitutional complaints Eyes: Eyes: Reports no additional eye complaints ENT: Reports system reviewed and no additional complaints, except as documented Cardiovascular: Cardiovascular: Reports no additional cardiovascular complaints Respiratory: Respiratory: Reports no additional respiratory complaints Gastrointestinal: Gastrointestinal: Reports no additional gastrointestinal complaints Genitourinary: Genitourinary: Reports no additional male genitourinary complaints Musculoskeletal: Musculoskeletal: Reports no additional musculoskeletal complaints Integumentary/Breasts: Skin/Breast: Reports system reviewed and no additional complaints, except as docu Neurologic: Reports system reviewed and no additional complaints, except as documented Psychiatric: Psychiatric: Reports no additional psychiatric complaints Endocrine: Endocrine: Reports no additional endocrine complaints Hematologic/Lymphatic: Hematologic/Lymphatic: Reports no additional hematologic/lymphatic complaints Allergic/Immunologic: Allergic/Immunologic: Reports no additional allergic/immunologic complaints PMFSH Past Medical History Medical History Chronic back pain Diabetes mellitus type 2 in obese Hepatic encephalopathy GI bleeding GERD (gastroesophageal reflux disease) Varices, esophageal Liver failure Surgical History Surgical History S/P TIPS (transjugular intrahepatic portosystemic shunt) Social History Social History Smoking status: Former smoker Alcohol intake: never Substance use: never Living arrangements: with family Exam Const: General: healthy appearing Nutritional Appearance: well nourished Orientation/consciousness: patient oriented x3 HENMT: Head: normal to inspection Ears: external ears normal Face/Nose/Sinus: Normal external nose present Eyes: Conjunctivae: conjunctivae normal Pupils: Equal, round and reactive pupils present EOM: EOMs intact bilaterally Neck: Neck: normal visual inspection Chest: Chest palpation & inspection: normal inspection of the chest Resp: Effort & Inspection: normal respiratory effort and not labored Auscultation: clear to auscultation bilaterally and no crackles Cardio: Rate: regular rate Rhythm: regular rhythm Heart sounds: no murmurs GI: Inspection: non-distended GI Palp: Yes Soft to palpation and No Tenderness to palpation present (GI) Auscultation: normal bowel sounds : General: Yes bladder normal to palpation Back/Spine/Pelvis: Back: no CVA tenderness Skin: General skin exam: normal color Rashes: no rashes Wounds: no wounds Neuro: General: patient oriented x3, moves all extremities and no meningeal signs Other: Asterixis Extrem: General: normal to inspection Psych: Mental Status: mental status grossly normal Affect: normal affect and Anxious affect present Attitude: cooperative Course Vital Signs Vital signs: Vital Signs Temperature 38.3 C H 01/23/25 04:52 Pulse Rate 130 H 01/23/25 04:52 Respiratory Rate 24 H 01/23/25 04:52 Blood Pressure 162/106 H 01/23/25 04:52 Pulse Oximetry 99 01/23/25 04:52 Oxygen Delivery Room Air 01/23/25 04:52 Temperature 38.3 C H 01/23/25 04:52 Pulse Rate 127 H 01/23/25 06:00 Respiratory Rate 27 H 01/23/25 06:00 Blood Pressure 164/91 H 01/23/25 06:00 Pulse Oximetry 92 01/23/25 06:00 Oxygen Delivery Room Air 01/23/25 04:59 MDM - SOB/Dyspnea MDM Narrative Medical decision making narrative: Patient is a 54-year-old male with known cirrhosis of the liver and here with shortness of breath episode with anxiety. We will do a respiratory workup. Shift change we discussed antibiotics and CT scan for further evaluation of this SIRS criteria and fever. Lab Data Attestation: I reviewed the patient's lab results. 01/23/25 05:43 01/23/25 05:43 Labs: Lab Results 01/23/25 Range/Units 05:43 WBC 2.2 L (4.8-10.8) K/mm3 RBC 5.04 (4.70-6.10) M/mm3 Hgb 12.8 L (14.0-18.0) g/dL Hct 40.7 (40.0-54.0) % MCV 80.8 (78.0-102.0) fL MCH 25.4 L (27.0-31.0) pg MCHC 31.4 L (32-36) g/dL RDW 16.7 H (11.6-14.4) % Plt Count 52 L (150-420) K/mm3 MPV Not Reportable Immature Gran % (Auto) Not Reportable Neut % (Auto) Not Reportable Lymph % (Auto) Not Reportable [place] % (Auto) Not Reportable Eos % (Auto) Not Reportable Baso % (Auto) Not Reportable Lymph # (Auto) Not Reportable [place] # (Auto) Not Reportable Eos # (Auto) Not Reportable Baso # (Auto) Not Reportable Abs Immat Gran (auto) Not Reportable Absolute Neuts (auto) Not Reportable Absolute Nucleated RBC Not Reportable Total Counted 100 Neutrophils % (Manual) 90 H (46-73) % Band Neutrophils % 6 (0-6) % Lymphocytes % (Manual) 4 L (18-44) % Monocytes % (Manual) 0 L (3-9) % Eosinophils % (Manual) 0 L (1-6) % Basophils % (Manual) 0 (0-1) % Nucleated RBC % Not Reportable Abs Neuts (Manual) 2.11 (1.3-6.7) K/mm3 Abs Lymphs (Manual) 0.08 L (1.1-4.5) K/mm3 Abs Monocytes (Manual) 0.00 L (0.1-0.90) K/mm3 Absolute Eos (Manual) 0.00 L (0.02-0.50) K/mm3 Abs Basophils (Manual) 0.00 (0-0.1) K/mm3 Platelet Estimate Decreased (Adequate) % Immature Plt Fraction 7.0 (1.0-7.0) % Schistocytes Not Reportable Sodium 143 (137-145) mmol/L Potassium 4.2 (3.4-5.0) mmol/L Chloride 105 (98-107) mmol/L Carbon Dioxide 26 (22-30) mmol/L Anion Gap 12 (4-12) mmol/L BUN 17 (9-20) mg/dL Creatinine 1.15 (0.7-1.3) mg/dL Estim Creat Clear Calc 81 ml/min Estimated GFR > 60 (59 - ) Glucose 252 H (65-110) mg/dL Calculated Osmolality 306 H (285-295) mOsm/kg Lactic Acid 3.3 H (0.4-2.0) mmol/L Calcium 9.0 (8.4-10.2) mg/dL Total Bilirubin 1.5 H (0.2-1.3) mg/dL AST 26 (17-59) U/L ALT 16 (6-50) U/L Alkaline Phosphatase 116 (38-126) U/L Ammonia 29 (9-30) umol/L Troponin I < 0.012 (0.000-0.034) ng/mL NT-Pro-B Natriuret Pep 261 H (19.9-100) pg/mL Total Protein 7.5 (6.3-8.2) g/dL Albumin 3.7 (3.5-5.1) g/dL Influenza A (RT-PCR) Negative (Negative) Influenza B (RT-PCR) Negative (Negative) RSV (RT-PCR) Negative (Negative) SARS-CoV-2 RNA (RT-PCR) Negative (Negative) Imaging Data Attestation: I personally reviewed and interpreted this imaging study as follows: ECG Data EKG #1: Attestation: I personally reviewed and interpreted this ECG as follows: ECG completion date: 01/23/25 ECG completion time: 06:37 EKG Interpretation: tachycardia, sinus rhythm, no ectopy, non-specific ST changes, normal QRS, normal QT and NL axis Discharge Plan Discharge Clinical Impression: Fever Patient Disposition: Acute Care Hospital Condition: Stable Patient Language: Swedish Prescriptions: No Action albuterol sulfate 90 mcg/actuation HFA aerosol inhaler 2 puff INHALATION Q8-10H PRN (Reason: Wheezing) alprazolam 1 mg tablet 0.5 mg PO TID PRN (Reason: Anxiety) ondansetron HCl 4 mg tablet 4 mg PO BID PRN (Reason: Nausea) cyclobenzaprine 10 mg tablet 10 mg PO TID PRN (Reason: muscle spasm) Qty: 20 0RF liraglutide [[employer] 3-Anatoliy] 0.6 mg/0.1 mL (18 mg/3 mL) pen injector See Rx Instructions .ROUTE .COMPLEX Rx Instructions: . Lagevrio (EUA) 200 mg capsule 800 mg PO Q12H 5 Days Qty: 40 0RF trazodone 100 mg tablet 100 mg PO BID hydroxyzine HCl 25 mg tablet 25 mg PO QID naproxen 500 mg tablet 500 mg PO BID PRN (Reason: pain) Qty: 14 0RF Rx Instructions: take with meals methocarbamol 750 mg tablet 1,500 mg PO TID Qty: 45 0RF triamcinolone acetonide 0.1 % ointment 1 applic topical TID 7 Days Qty: 15 0RF (DME) OneTouch Ultra Test Strip MISCELLANEOUS hydrocodone-acetaminophen 10-325 mg tablet 10 - 325 tablet PO DAILY carvedilol 3.125 mg tablet 3.125 mg PO DAILY famotidine 20 mg tablet 20 mg PO DAILY hydrochlorothiazide 25 mg tablet 25 mg PO DAILY metformin 500 mg tablet extended release 24 hr 500 mg PO DAILY insulin lispro [Humalog KwikPen Insulin] 100 unit/mL insulin pen 100 unit SUBCUT DIRECTED (DME) pen needle, diabetic [TRUEplus Pen Needle] 31 gauge x 5/16 needle MISCELLANEOUS duloxetine 30 mg capsule,delayed release(DR/EC) 30 mg PO DAILY lactulose [Enulose] 10 gram/15 mL solution 10 g PO DAILY pregabalin 200 mg capsule 200 mg PO DAILY insulin glargine [Lantus Solostar U-100 Insulin] 100 unit/mL (3 mL) insulin pen 100 unit SUBCUT DIRECTED (DME) [employer] G7 Sensor Device MISCELLANEOUS Trulicity 0.75 mg/0.5 mL pen injector 0.75 mg SUBCUT DAILY Humulin R U-500 (Conc) Kwikpen 500 unit/mL (3 mL) insulin pen 500 unit SUBCUT DIRECTED cyclobenzaprine 10 mg tablet 10 mg PO TID PRN (Reason: muscle spasm) Qty: 20 0RF omeprazole 20 mg capsule,delayed release(DR/EC) 20 mg PO BID Qty: 60 0RF Follow-up/Referrals: UNKNOWN,DOCTOR [Non-Staff]
--- NOTE | 2025-01-23 04:56 | ECG_ITS ---
Test Date: 2025-01-23 05:46:54 Measurements Intervals [place] Rate: 130 P: 78 MI: 166 QRS: 101 QRSD: 81 T: 17 QT: 333 QTc: 491 Interpretive Statements SINUS TACHYCARDIA RIGHT AXIS DEVIATION [QRS AXIS > 100] POSSIBLE ANTERIOR MYOCARDIAL INFARCTION , OF INDETERMINATE AGE [30 ms Q WAVE IN V3/V4, OR R < 0.2 mV IN V4] Compared to ECG 12/13/2024 07:48:11 Right-axis deviation now present Myocardial infarct finding now present Sinus rhythm no longer present Electronically Signed On 01-23-2025 14:25:48 CDT by Wayne Forrest M.D.
--- NOTE | 2025-01-23 05:06 | PC.NURSE ---
Called Lelia in lab to tell her that I dropped off swab
[2025-01-23] MEDS: diazePAM INJ (*CRX) 10 MG/2 ML SYRINGE 5 MG IV PUSH (05:40)
[2025-01-23 05:58] LABS: Hematocrit 40.7 % (40.0-54.0); Hemoglobin 12.8 g/dL (14.0-18.0); Immature Platelet Fraction Pct 7.0 % (1.0-7.0); Mean Corpuscular HGB Conc 31.4 g/dL (32-36); Mean Corpuscular Hemoglobin 25.4 pg (27.0-31.0); Mean Corpuscular Volume 80.8 fL (78.0-102.0); Platelet Count Result 52 K/mm3 (150-420); Red Blood Count 5.04 M/mm3 (4.70-6.10); White Blood Count 2.2 K/mm3 (4.8-10.8)
[2025-01-23 06:06] LABS: Ammonia 29 umol/L (9-30)
[2025-01-23 06:14] LABS: Anion Gap 12 mmol/L (4-12); Blood Urea Nitrogen 17 mg/dL (9-20); Carbon Dioxide 26 mmol/L (22-30); Chloride 105 mmol/L (98-107); Estimated CRCL calculation 81 ml/min; Estimated Glomerular Filt Rate > 60; Potassium 4.2 mmol/L (3.4-5.0); Sodium 143 mmol/L (137-145)
[2025-01-23 06:15] LABS: Alanine Aminotransferase 16 U/L (6-50); Albumin Level 3.7 g/dL (3.5-5.1); Alkaline Phosphatase 116 U/L (38-126); Aspartate Amino Transferase 26 U/L (17-59); Bilirubin,Total 1.5 mg/dL (0.2-1.3); Calcium 9.0 mg/dL (8.4-10.2); Glucose 252 mg/dL (65-110); Osmolality Calculated 306 mOsm/kg (285-295); Total Protein 7.5 g/dL (6.3-8.2)
[2025-01-23 06:16] LABS: NT Pro B Type Natriuretic Pept 261 pg/mL (19.9-100)
[2025-01-23 06:17] LABS: Band Neutrophils Percent 6 % (0-6); Basophils Absolute Manual 0.00 K/mm3 (0-0.1); Basophils Percent Manual 0 % (0-1); Eosinophils Absolute Manual 0.00 K/mm3 (0.02-0.50); Eosinophils Percent Manual 0 % (1-6); Lymphocytes Absolute Manual 0.08 K/mm3 (1.1-4.5); Lymphocytes Percent Manual 4 % (18-44); Monocytes Absolute Manual 0.00 K/mm3 (0.1-0.90); Monocytes Percent Manual 0 % (3-9); Neutrophils Absolute Manual 2.11 K/mm3 (1.3-6.7); Neutrophils Percent Manual 90 % (46-73); Total Cells Counted 100; Troponin I < 0.012 ng/mL (0.000-0.034)
--- NOTE | 2025-01-23 06:30 | PC.NURSE ---
Pt sleeping, awakens easily when moved, VSS, temp noted to increase to 102. Dr Paz notified and order received.
[2025-01-23 06:32] LABS: Influenza A QL RT-PCR Negative (Negative); Influenza B QL RT-PCR Negative (Negative); RSV RNA, RT-PCR Negative (Negative); SARS-CoV-2 RNA PCR Negative (Negative)
[2025-01-23] MEDS: SODIUM CHLORIDE 0.9% IV 1,000 ML 999 ML IV CONT ×2 (06:39→07:56)
[2025-01-23] MEDS: ACETAMINOPHEN 500 MG TABLET 1000 MG PO (06:49)
--- NOTE | 2025-01-23 07:05 | PC.NURSE ---
Report received from overnight cashier RNCheyenne.
--- NOTE | 2025-01-23 07:07 | PC.NURSE ---
Pt taken to radiology for scans
[2025-01-23] MEDS: CEFEPIME 1 GM in SODIUM CHLORIDE 0.9% IV 50 ML 100 ML IVPB (07:51)
[2025-01-23 08:07] LABS: Add Urine Microscopic? YES; Appearance Urine Clear (Clear); Glucose Urine UA 3+ (Negative); Leukocyte Esterase Ur Negative LEU/UL (Negative); Nitrate Urine Negative (Negative); Specific Grav Ur 1.025 (1.010-1.020)
--- NOTE | 2025-01-23 08:21 | PC.NURSE ---
Bed requested for patient. Room 209 assigned. Registration informed.
[2025-01-23] MEDS: SODIUM CHLORIDE 0.9% IV 1,000 ML 125 ML IV CONT ×2 (08:50→17:06)
--- NOTE | 2025-01-23 08:50 | ADMGEN ---
This patient, Camilo Curry Jr., was admitted to 2nd Floor Room 209-1. Patient/family oriented to hospital policies and general routines including ID bracelet, bed and alarms, visiting hours, pain management, procedures, bathroom and other care routines, personal items, smoking policy, room service/diet, and visiting hours. Information on how to activate the Rapid Response Team has been discussed. Patient/Family are encouraged to report perceived risks to care and to ask questions if they do not understand what they are told or what they should do.
--- NOTE | 2025-01-23 10:23 | PM.SD2 ---
Same Day Admit/Disch: HPI History of Present Illness Chief complaint: Sirs Narrative: Camilo Curry Jr. is a 54 year old male ADDENDUM I assumed care of this patient at shift change with pending CT and disposition. 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 I did review his lab work, CT. I discussed with the patient and the family he is agreeable with admission. Discussed with the hospitalist. I did start him on cefepime. Cause of his fever is unknown. Addendum Documented By: Surinder Calvo MD 01/23/25822 Addendum Signed By: <Electronically signed by Surinder Calvo MD> 01/23/25822 HPI - SOB/Dyspnea General Chief Complaint: Shortness of Breath/Dyspnea Stated Complaint: sob Time Seen by Provider: 01/23/25 04:48 Source: patient and EMS Mode of arrival: EMS Limitations: no limitations History of Present Illness HPI Narrative: Patient is a 54-year-old male with recurrent episodes of shortness of breath here for a similar episode of shaking/asterixis of cirrhosis with associated shortness of breath which is getting better. He has lots of allergies. He has lots of anxiety. He has polypharmacy. Diabetes 2. Chronic back pain. Pancytopenia. Cirrhosis and LE. Gallbladder removal coming up soon for patient. He has been moving lately and doing gianna. MD elicited complaint: shortness of breath Pertinent past history: COPD, asthma and other (See above) Onset (ago): day(s) (One) [facility] Past Medical History Medical History Chronic back pain Diabetes mellitus type 2 in obese Hepatic encephalopathy GI bleeding GERD (gastroesophageal reflux disease) Varices, esophageal Liver failure Surgical History Surgical History S/P TIPS (transjugular intrahepatic portosystemic shunt) Social History Social History Smoking status: Former smoker Alcohol intake: never Substance use: never Lack of Transportation: No Lack of Food: Never True Current Housing: I Have Housing Concerned About Future Housing: No Difficulty Paying Gas/Electric Bills: No Difficulty Paying for Meds: No Currently Unemployed: No Education: Trade/Vocational Certificate Difficulty w/ Childcare or Family Care: No Living arrangements: with family Spiritual care concerns: No Same Day Admit/Disch: Med Pre-admit Medications Home Medications ?Medication ?Instructions ?Recorded ?Confirmed ?Type omeprazole 20 mg capsule,delayed 20 mg PO BID #60 caps 04/04/19 01/23/25 Rx release albuterol sulfate 90 mcg/actuation 2 puff inhalation Q8-10H PRN 02/19/20 01/23/25 History aerosol inhaler Wheezing alprazolam 1 mg tablet 0.5 mg PO TID PRN Anxiety 09/04/20 01/23/25 History ondansetron HCl 4 mg tablet 4 mg PO BID PRN Nausea 09/04/20 01/23/25 History blood sugar diagnostic (OneTouch 02/23/24 01/23/25 History Ultra Test strips) blood-glucose sensor (Useful Systems G7 02/23/24 01/23/25 History Sensor device) dulaglutide 0.75 mg/0.5 mL 0.75 mg subcut DAILY 02/23/24 01/23/25 History subcutaneous pen injector (Trulicity) hydrocodone 10 mg-acetaminophen 10 - 325 tablet PO DAILY 02/23/24 01/23/25 History 325 mg tablet insulin lispro 100 unit/mL 100 unit subcut DIRECTED 02/23/24 01/23/25 History subcutaneous pen (Humalog KwikPen (U-100) Insulin) lactulose 10 gram/15 mL oral 10 g PO DAILY 02/23/24 01/23/25 History solution (Enulose) pen needle, diabetic 31 gauge x 02/23/24 01/23/25 History 5/16 (TRUEplus Pen Needle) pregabalin 200 mg capsule 200 mg PO DAILY 02/23/24 01/23/25 History pregabalin 100 mg capsule 100 mg PO HS 01/23/25 01/23/25 History levofloxacin 500 mg tablet 500 mg PO DAILY #3 tabs 01/24/25 Rx clindamycin HCl 300 mg capsule 300 mg PO TID 7 days #21 caps 01/25/25 Rx (Cleocin HCl) Exam Const: General: healthy appearing and well nourished Nutritional Appearance: well nourished Orientation/consciousness: patient oriented x3 HENMT: Head: normal to inspection Ears: external ears normal Face/Nose/Sinus: Normal external nose present Eyes: Conjunctivae: conjunctivae normal Pupils: Equal, round and reactive pupils present EOM: EOMs intact bilaterally Neck: Neck: normal visual inspection and no meningeal signs Chest: Chest palpation & inspection: normal inspection of the chest Resp: Effort & Inspection: normal respiratory effort and not labored Auscultation: clear to auscultation bilaterally and no crackles Cardio: Rate: regular rate Rhythm: regular rhythm Heart sounds: no murmurs GI: Inspection: non-distended Auscultation: normal bowel sounds : General: Yes bladder normal to palpation and Yes no CVA tenderness Back/Spine/Pelvis: Back: no CVA tenderness Skin: General skin exam: normal color Rashes: no rashes Wounds: no wounds Neuro: General: patient oriented x3, moves all extremities and no meningeal signs Cranial nerves: Yes Equal, round and reactive pupils present Other: Asterixis Extrem: General: normal to inspection Psych: Mental Status: mental status grossly normal Affect: normal affect and Anxious affect present Attitude: cooperative DS: Data Data Completed and Pending Labs on day of discharge: Labs from last 24 hours 01/23/25 01/23/25 01/23/25 09:07 08:01 07:54 WBC RBC Hgb Hct MCV MCH MCHC RDW Plt Count MPV Immature Gran % (Auto) Neut % (Auto) Lymph % (Auto) [place] % (Auto) Eos % (Auto) Baso % (Auto) Lymph # (Auto) [place] # (Auto) Eos # (Auto) Baso # (Auto) Abs Immat Gran (auto) Absolute Neuts (auto) Absolute Nucleated RBC Total Counted Neutrophils % (Manual) Band Neutrophils % Lymphocytes % (Manual) Monocytes % (Manual) Eosinophils % (Manual) Basophils % (Manual) Nucleated RBC % Abs Neuts (Manual) Abs Lymphs (Manual) Abs Monocytes (Manual) Absolute Eos (Manual) Abs Basophils (Manual) Platelet Estimate % Immature Plt Fraction Schistocytes Sodium Potassium Chloride Carbon Dioxide Anion Gap BUN Creatinine Estim Creat Clear Calc Estimated GFR Glucose POC Capillary Glucose 387 H Calculated Osmolality Lactic Acid 2.0 Calcium Total Bilirubin AST ALT Alkaline Phosphatase Ammonia Troponin I NT-Pro-B Natriuret Pep Total Protein Albumin Urine Color Judy A Urine Appearance Clear Urine pH 6.0 Ur Specific [place] 1.025 H Urine Protein 1+ H Urine Glucose (UA) 3+ H Urine Ketones Negative Ur Blood (Man) Trace-intact H Urine Nitrate Negative Urine Bilirubin Negative Urine Urobilinogen 1.0 Leukocyte Esterase Rfl Negative Urine RBC 0-2 Urine WBC 0-3 Ur Squamous Epith Cells Few Urine Bacteria Trace Hyaline Casts Present Influenza A (RT-PCR) Influenza B (RT-PCR) RSV (RT-PCR) SARS-CoV-2 RNA (RT-PCR) 01/23/25 05:43 WBC 2.2 L RBC 5.04 Hgb 12.8 L Hct 40.7 MCV 80.8 MCH 25.4 L MCHC 31.4 L RDW 16.7 H Plt Count 52 L MPV Not Reportable Immature Gran % (Auto) Not Reportable Neut % (Auto) Not Reportable Lymph % (Auto) Not Reportable [place] % (Auto) Not Reportable Eos % (Auto) Not Reportable Baso % (Auto) Not Reportable Lymph # (Auto) Not Reportable [place] # (Auto) Not Reportable Eos # (Auto) Not Reportable Baso # (Auto) Not Reportable Abs Immat Gran (auto) Not Reportable Absolute Neuts (auto) Not Reportable Absolute Nucleated RBC Not Reportable Total Counted 100 Neutrophils % (Manual) 90 H Band Neutrophils % 6 Lymphocytes % (Manual) 4 L Monocytes % (Manual) 0 L Eosinophils % (Manual) 0 L Basophils % (Manual) 0 Nucleated RBC % Not Reportable Abs Neuts (Manual) 2.11 Abs Lymphs (Manual) 0.08 L Abs Monocytes (Manual) 0.00 L Absolute Eos (Manual) 0.00 L Abs Basophils (Manual) 0.00 Platelet Estimate Decreased % Immature Plt Fraction 7.0 Schistocytes Not Reportable Sodium 143 Potassium 4.2 Chloride 105 Carbon Dioxide 26 Anion Gap 12 BUN 17 Creatinine 1.15 Estim Creat Clear Calc 81 Estimated GFR > 60 Glucose 252 H POC Capillary Glucose Calculated Osmolality 306 H Lactic Acid 3.3 H Calcium 9.0 Total Bilirubin 1.5 H AST 26 ALT 16 Alkaline Phosphatase 116 Ammonia 29 Troponin I < 0.012 NT-Pro-B Natriuret Pep 261 H Total Protein 7.5 Albumin 3.7 Urine Color Urine Appearance Urine pH Ur Specific [place] Urine Protein Urine Glucose (UA) Urine Ketones Ur Blood (Man) Urine Nitrate Urine Bilirubin Urine Urobilinogen Leukocyte Esterase Rfl Urine RBC Urine WBC Ur Squamous Epith Cells Urine Bacteria Hyaline Casts Influenza A (RT-PCR) Negative Influenza B (RT-PCR) Negative RSV (RT-PCR) Negative SARS-CoV-2 RNA (RT-PCR) Negative DS: Summary Hospital Course Reason for hospitalization: SIRS Hospital Course: Patient has arrived on the floor wandering when he will discharge home. He is smiling eating and drinking without difficulties . We will repeat labs at 1500 to determine if he is improving. We will continues monitor labs. Patient has a significant past medical history of hypertension , hyperlipedema, Time Spent with Patient Time attestation: Total time spent providing and/or coordinating discharge services: DS: Admitting Diagnosis Discharge Date 01/31/25 Admitting Diagnosis Le Discharge Plan Discharge Attending physician on discharge: Julian Ervin Consulting providers: Leticia Gandhi; Wayne Forrest; Clarence Li; Blair Estevez Discharging Clinician: Leticia Gandhi Anticipated Discharge Date/Time: 01/24/25 09:25 Patient Disposition: Home Activity: september shower Diet: diabetic Wound Care Instructions: follow printed instructions Discharge Instructions: Please take medication as prescribed and follow up with your primary care provider in 7- bussiness day Patient Instructions: Antibiotic Form, Levofloxacin (By mouth), Fever in Adults (ED), Sepsis (DC) Patient Language: Yakut Stand Alone Forms: General Discharge Information Follow-up/Referrals: Librado,SONALI Huizar [Primary Care Provider] Discharge Medications: New levofloxacin 500 mg tablet 500 mg PO DAILY Qty: 3 0RF Continued albuterol sulfate 90 mcg/actuation HFA aerosol inhaler 2 puff INHALATION Q8-10H PRN (Reason: Wheezing) alprazolam 1 mg tablet 0.5 mg PO TID PRN (Reason: Anxiety) ondansetron HCl 4 mg tablet 4 mg PO BID PRN (Reason: Nausea) (DME) OneTouch Ultra Test Strip MISCELLANEOUS hydrocodone-acetaminophen 10-325 mg tablet 10 - 325 tablet PO DAILY insulin lispro [Humalog KwikPen Insulin] 100 unit/mL insulin pen 100 unit SUBCUT DIRECTED (DME) pen needle, diabetic [TRUEplus Pen Needle] 31 gauge x 5/16 needle MISCELLANEOUS lactulose [Enulose] 10 gram/15 mL solution 10 g PO DAILY pregabalin 200 mg capsule 200 mg PO DAILY (DME) Dexcom G7 Sensor Device MISCELLANEOUS Trulicity 0.75 mg/0.5 mL pen injector 0.75 mg SUBCUT DAILY pregabalin 100 mg capsule 100 mg PO HS omeprazole 20 mg capsule,delayed release(DR/EC) 20 mg PO BID Qty: 60 0RF Discontinued carvedilol 3.125 mg tablet 3.125 mg PO DAILY No Action clindamycin HCl [Cleocin HCl] 300 mg capsule 300 mg PO TID 7 Days Qty: 21 0RF Date of admission: 01/23/25 08:23 Primary Care Provider: LibradoBraydon Admitting Provider: Julian Ervin Attending physician on admission: Julian Ervin Condition: Stable
[2025-01-23] MEDS: HYDROcodone/acetaminophen (*CRX) 10-325 MG TABLET 1 TAB PO ×3 (10:39→21:49)
[2025-01-23] MEDS: PREGABALIN (*CRX) 100 MG CAPSULE 200 MG PO (10:39)
[2025-01-23] MEDS: PANTOPRAZOLE 40 MG TABLET PO ×2 (11:08→16:16)
[2025-01-23] MEDS: INSULIN HUMAN LISPRO (*BKC) 1,000 UNITS/10 ML VIAL SUB-Q ×2 (12:01→17:04)
--- OUTSIDE RECORDS SUMMARY | 2025-01-23 12:23 | XMS_ITS | Encounter Summary ---
Author Organization [facility] Address [address] [place] [address] Care Team Providers Care Web Software Engineer Name Role Phone None, Provider Primary Care Provider Braydon Piedra Primary Care Provider [phone] Encounter Details Date Type Department Care Team (Late st Contact Info) Description 10/09/2018 Abstract SFL CONVERSION [address] [place] [address] , Generic Conversion, Social History Tobacco Use [...] filedocumented in this encounter Care Teams Web Software Engineer Relationship Specialty Start Date End Date None, ProviderMD PCP - General 02/08/19 03/01/19 Braydon Pavon PA PCP - General PHYSICIAN GROCERY CHECKER 03/02/19 documented as of this encounter
--- OUTSIDE RECORDS SUMMARY | 2025-01-23 12:23 | XMS_ITS | Clinical Summary ---
Author Organization [facility] Address [address] [place] [address] Care Team Providers Care Patient Transporter Name Role Phone Nacho Rodriguez MD Unavailable [phone] Elian Gross MD Unavailable Braydon Pavon Primary Care Provider [phone] Allergies Active Allergy Reactions Criticality Noted Date [...] 1 each 05/21/19 22 Active Dexcom G6 State Editor misc 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 Use to [...] 05/20/2021 Assessment & Plan (05/22/2021 3:58 PM BOARD WRITER): A initial well visit to establish care [...] unless otherwise indicated. Need follow-up arranged with grinder hand, musical string maker Planning on referral to roller painter Will need to check in to the tips follow-up Labs as ordered today, I will direct the A1 c to his musical string maker's office. Continuing the current regimen for now. Blood pressure is controlled at this time. We may need to try to get the stress test done as well. Screen for colon cancer 03/01/2021 Overview (03/01/2021): Added automatically from request for surgery [id number] Diabetic neuropathy associat ed with type 2 diabetes mellitus 10/29/2020 Assessment & Plan (10/29/2020 4:23 PM CDT): Chronic, worsening Start, gabapentin therapy Work on better diabetic control Vitamin D deficiency 10/29/2020 Assessment & Plan (10/29/2020 4:23 PM CDT): Check labs and based on that for the plans Bacterial endocarditis 05/14/2020 Assessment & Plan (05/14/2020 11:09 AM BOARD WRITER): Unfortunately the patient's records from [facility] are not available for my review. We [...] 05/14/2020 Assessment & Plan (05/14/2020 11:11 AM BOARD WRITER): The patient's dyspnea on exertion is likely [...] - follow up in 6 weeks with DEPUTY SHERIFF GENERALIST/BAILIFF Chelsea Driscoll ( to discuss about insulin [...] resume home regimen and follow-up with home musical string maker MATHEUS pain 10/11/2017 Morbid obesity 12/09/2016 TRACY [...] Encounters Date Type Department Care Team Description 01/12/2025 1:15 PM CDT Office Visit [facility] [address] [place] [address] Medical Office Building [address] [place] [id number] Nabil Vang MD Biliary colic (Primary Dx) 01/06/2025 Orders Only [facility] Scanning, Provider 01/05/[address] [facility] [address] 12th [place] [address] [place] [address] Sean Rodas RN 12/26/2024 3:04 PM CDT - 12/26/2024 11:59 PM CDT Hospital Encounter [facility] [address] [place] [address] Discharge Disposition: Discharge to home or self care 12/19/2024 Telephone [facility] ([facility]) - 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 [address]th [place] [address] [place] [address] Adriane Pearce from Last 3 Months Immunizations [...] Tobacco: Never Alcohol Use Standard Drinks/Week Comments Never 0 (1 standard drink = 0.6 oz pur e alcohol) PHQ-2 Answer Date Recorded PHQ-2 Total Score (If total score is 3 or more points, staff should administer the PHQ-9) 2 05/20/2021 AUDIT-C Answer Date Recorded Q1: How often do you have a drink containing alcohol? Never 01/12/2025 Q2: How many drinks containi ng alcohol do you have on a typical day when you are drinking? Patient does not drink Q3: How often do you have si x or more drinks on one occasion? Never 01/12/2025 Personal Safety Answer Date Recorded Have you ever been in or are you currently in a harmful physical or emotional relationship or is someone making you feel afraid or unsafe? Denies 12/13/2024 Sex and Gender Information Value Date Recorded Sex Assigned at Not on file Legal Sex Male 2:52 PM BOARD WRITER Gender Identity Male 10/29/2020 12:37 PM CDT Sexual Orientation Straight 10/29/2020 12 :37 PM CDT Obstetrics History Last Filed Vital Signs Vital Sign Reading Time Taken Comments Blood Pressure 142/80 01/12/2025 1:05 PM CDT Pulse 71 01/12/2025 1:05 PM CDT Temperature 36.2 C (97.2 F) 12/14/2024 8:35 AM CDT Respiratory Rate 16 12/14/2024 5:30 AM CDT Oxygen Saturation 95% 01/12/2025 1:05 PM CDT Inhaled Oxygen Concentration - - Weight 96.2 kg (212 lb) 01/12/2025 1:05 PM CDT Height 172.7 cm (5' 8) 01/12/2025 1:05 PM CDT Body Mass Index 32.23 01/12/2025 1:05 PM CDT Plan of Treatment Health Maintenance Due Date Last Done Comments Prostate Cancer Screening-PSA 1970 Dilated Eye Exam 1970 DTaP/Tdap/Td Vaccine (1 - Tdap) 1981 Regular Well Visit/Exam 18-64 1988 Pneumococcal vaccine <65 (1 of 2 - PCV) 1989 Zoster Vaccine (1 of 2) 2020 Foot Exam 10/29/2021 10/29/2020 Albumin Creatinine Ratio, Urine 05/20/2022 Depression Screening 05/20/2022 05/20/2021, 05/20/2021, 10/29/2020 Hemoglobin A1C 12/07/2024 06/09/2024, 0706/2023, 11/23/2023, Additional history exists Covid-19 Vaccine (3 - 2024-2 6 season) 2025 12/29/2020, 12/08/2020 Influenza Vaccine (#1) 2025 Lipid Panel 12/14/2025 12/14/2024, 02/0 10/2024, 05/20/2021, Additional history exists eGFR 12/14/2025 12/14/2024, 12/02, 06/02/2024, Additional history exists Colon Cancer Screening-Colonoscopy 12/17/20302020 Hepatitis C Screening Completed 08/23/2015 Medical Devices Implanted Type Area Wharf Tender Device Identifier Shelf Expiration Date Model / Serial / Lot [employer] [id number] Lifestar 14mm 60mm 80cm Stent Biliary - [id number] Implanted:Qty: 1 on 01/10/2021 at [facility] [employer] 09/15/2023 [id number] / / [id number] Procedures Procedure Name Priority Date/Time Associated Diagnosis Comments SCAN - RADIOLOGY/IMAGING 01/06/2025 CT BODY OUTSIDE REFERENCE Routine 12/26/2024 3:04 [...] CREATININE RATIO, URINE Routine 05/20/2021 9:36 AM BOARD WRITER Diabetic neuropathy associated with type 2 diabetes mellitus (HCC) COLONOSCOPY 12/17/2020 10:24 AM CDT SERUM HEPATITIS PANEL Routine 08/23/2015 5:23 PM CDT from Last 3 Months or Most Recently Relevant to Health Maintenance Results * SCAN - RADIOLOGY/IMAGING (01/06/2025) Anatomical Region Laterality Modality Other us Provider Scanning Final Result * CT Body Outside Reference (12/26/2024 3:04 PM CDT) Impressions [facility] - 12/26/2024 3:04 PM CDT These images are for Reference purposes only and have not been reviewed by [facility] Radiology. There will be no report generated by a [facility] Radiologist. Narrative [facility]_P[facility] - 12/26/2024 3:04 PM CDT EXAMINATION: Images For Reference Purposes Only Nabil Vang MD IMG CT PROCEDURES Fi nal Result [facility] * Immature platelet fraction (12/14/2024 9:12 AM CDT) Pathologist [facility] IPF 9.5 1.6 - 10.1 % Blood 12/14/2024 9:12 AM CDT 12/14/2024 9:28 AM CDT Nabil Balderas Jr., MD LAB BLOOD ORDERABLES F inal Result [facility] Department [place] [address] * eGFR (12/14/2024 9:12 AM CDT) Pathologist [facility] eGFR >90 >=60 mL/min/1. 73 m2 Comment: [...] MD LAB BLOOD ORDERABLES F inal Result [facility] [place] [address] * (ABNORMAL) Differential, auto (12/14/2024 9:12 AM CDT) Neutrophil abs 1.68 1.50 - 6.50 K/cumm Imm gran abs 0.01 0.00 - 0.10 K/cumm [facility] Lymphocyte abs 0.16(L) 0.80 - 3.30 K/cumm [facility] Monocyte abs 0.03(L) 0.20 - 0.80 K/cumm [facility] Eosinophil abs 0.00 0.00 - 0.50 K/cumm [facility] Basophil abs 0.01 0.00 - 0.10 K/cumm [facility] Neutrophil pct 88.9 % [facility] Comment: Interpretive Data Percent cell count reference ranges are not reported, since discordance with absolute values may lead to misinterpretation of CBC data. Current Interpretive Data was last revised on 2017. Imm gran pct 0.5 % [facility] Comment: Interpretive Data Percent cell count reference ranges are not reported, since discordance with absolute values may lead to misinterpretation of CBC data. Current Interpretive Data was last revised on 2017. Lymphocyte pct 8.5 % [facility] Comment: Interpretive Data Percent cell count reference ranges are not reported, since discordance with absolute values may lead to misinterpretation of CBC data. Current Interpretive Data was last revised on 2017. Monocyte pct 1.6 % [facility] Comment: Interpretive Data Percent cell count reference ranges are not reported, since discordance with absolute values may lead to misinterpretation of CBC data. Current Interpretive Data was last revised on 2017. Eosinophil pct 0.0 % [facility] Comment: Interpretive Data Percent cell count reference ranges are not reported, since discordance with absolute values may lead to misinterpretation of CBC data. Current Interpretive Data was last revised on 2017. Basophil pct 0.5 % [facility] Comment: Interpretive Data Percent cell count reference ranges are not reported, since discordance with absolute values may lead to misinterpretation of CBC data. Current Interpretive Data was last revised on 2017. Blood 12/14/2024 9:12 AM CDT 12/14/2024 9:22 AM CDT us Nabil Balderas Jr., MD LAB BLOOD ORDERABLES F inal Result [facility] [place] [address] * (ABNORMAL) CBC with auto differential (12/14/2024 9:12 AM CDT) WBC 1.84(L) 3.80 - 9.90 K/cumm Hgb 12.5(L) 13.0 - 17.5 g/dL [facility] Hct 39.1 38.9 - 50.3 % [facility] Plt 47(C) 150 - 400 K/cumm [facility] Comment:Platelet count confi rmed by additional testing. Critical platelet count threshold determined by patient location: Outpatient:<50 K/cumm , Inpatient adults:<20 K/cumm , Inpatient pediatric:<25 K/cumm, BMT service:<10 K/cumm MPV Not Measured 9.1 - 12.3 fL [facility] RBC 5.09 4.30 - 5.80 M/cumm [facility] MCV 76.8(L) 81.3 - 96.4 fL [facility] MCH 24.6(L) 27.1 - 33.3 pg [facility] MCHC 32.0(L) 32.3 - 35.7 g/dL [facility] RDW CV 15.2(H) 11.1 - 14.9 % [facility] RDW SD 41.5 35.7 - 48.1 fL [facility] NRBC abs 0.00 0.00 - 0.01 K/cumm [facility] Blood 12/14/2024 9:12 AM CDT 12/14/2024 9:22 AM CDT us Nabil Balderas Jr., MD LAB BLOOD ORDERABLES F inal Result [facility] [place] [address] * (ABNORMAL) Lipid panel (12/14/2024 9:12 AM [...] revised on 2017. Triglycerides 86 <=149 mg/dL [facility] Comment: Interpretive Data Ages < [...] revised on 2017. HDL 21(L) >=40 mg/dL [facility] Comment: Interpretive Data Ages < [...] on 2017. LDL, calculated 64 <=129 mg/dL [facility] Comment: Interpretive Data Ages < [...] NCEP Expert Panel. Circulation 2004;110:227 3. Ike Cortez al. OMAIRA Cardiol. 2020 September 01;5(5):540-548. doi: 10.1001/jamacardio.2020.0013 Current Interpretive Data was last revised on 2023. Non-HDL Cholesterol 81 mg/dL [facility] Comment: Interpretive Data Ages < [...] last revised on 2017. Chol/HDL ratio 5 [facility] Blood 12/14/2024 9:12 AM CDT 12/14/2024 9:48 AM CDT Narrative [facility] - 12/14/2024 4:15 PM CDT reflex us Nabil Balderas Jr., MD LAB BLOOD ORDERABLES F inal Result [facility] Department [place] [address] * (ABNORMAL) Comprehensive metabolic panel (12/14/2024 9:12 AM CDT) Sodium 136 135 - 145 mmol/L Potassium, pl 4.9 3.3 - 4.9 mmol/L [facility] Chloride 102 97 - 110 mmol/L [facility] CO2 24 22 - 32 mmol/L [facility] Anion gap 10 2 - 15 mmol/L [facility] BUN 17 6 - 25 mg/dL [facility] Creatinine 0.83 0.80 - 1.30 mg/dL [facility] Glucose 307(H) 70 - 199 mg/dL [facility] Comment: Interpretive Data Fasting glucose >/= [...] 2022. Calcium 8.6 8.5 - 10.3 mg/dL [facility] Bilirubin, total 1.3(H) 0.1 - 1.2 mg/dL [facility] Protein, pl 6.8 6.5 - 8.5 g/dL [facility] Albumin 3.3(L) 3.5 - 5.0 g/dL [facility] Alk phos 142(H) 40 - 130 Units/L [facility] ALT 10 7 - 55 Units/L [facility] AST 18 10 - 50 Units/L [facility] Blood 12/14/2024 9:12 AM CDT 12/14/2024 9:22 AM CDT Nabil Balderas Jr., MD LAB BLOOD ORDERABLES F inal Result Performing Organization Address [facility] de Phone Number [facility] Department [place] [address] * (ABNORMAL) POCT glucose (12/14/2024 7:56 AM CDT) Glucose, POC 272(H) 70 - 199 mg/dL Blood 12/14/2024 7:56 AM CDT 12/14/2024 7:56 AM CDT Nabil Balderas Jr., MD LAB POCT ORDERABLES - DEVICE Final Result Performing Organization Address [facility] Co de Phone Number [facility] [place] [place] [address] * (ABNORMAL) POCT glucose (12/14/2024 2:32 AM CDT) Glucose, POC 283(H) 70 - 199 mg/dL Blood 12/14/2024 2:32 AM CDT 12/14/2024 2:32 AM CDT Grey Amanda MD LAB POCT ORDERABLES - NBA CE Final Result Performing Organization Address [facility] Co de Phone Number [facility] [place] [address] * POCT glucose (12/13/2024 10:38 PM CDT) Glucose, POC 197 70 - 199 mg/dL Blood 12/13/2024 10:3 8 PM CDT 12/13/2024 10:38 PM CDT us Valeriano Torres MD LAB POCT ORDERABLES - DEVIC E Final Result Performing Organization Address [facility] Co de Phone Number [facility] [place] [address] * POCT glucose (12/13/2024 5:17 PM CDT) Glucose, POC 130 70 - 199 mg/dL Blood 12/13/2024 5:17 PM CDT 12/13/2024 5:17 PM CDT us Thai Mejia MD LAB POCT ORDERABLES - DEVICE Final Result Performing Organization Address [facility] de Phone Number [facility] Department [place] [address] * US RUQ (12/13/2024 4:00 PM CDT) [...] MD LAB BLOOD ORDERABLES Anastasiya l Result [facility] [place] [address] * (ABNORMAL) Differential, auto (12/13/2024 2:37 PM CDT) Neutrophil abs 3.11 1.50 - 6.50 K/cumm Imm gran abs 0.02 0.00 - 0.10 K/cumm [facility] Lymphocyte abs 0.40(L) 0.80 - 3.30 K/cumm [facility] Monocyte abs 0.36 0.20 - 0.80 K/cumm [facility] Eosinophil abs 0.09 0.00 - 0.50 K/cumm [facility] Basophil abs 0.04 0.00 - 0.10 K/cumm [facility] Neutrophil pct 77.3 % [facility] Comment: Interpretive Data Percent cell count reference ranges are not reported, since discordance with absolute values may lead to misinterpretation of CBC data. Current Interpretive Data was last revised on 2017. Imm gran pct 0.5 % [facility] Comment: Interpretive Data Percent cell count reference ranges are not reported, since discordance with absolute values may lead to misinterpretation of CBC data. Current Interpretive Data was last revised on 2017. Lymphocyte pct 10.0 % [facility] Comment: Interpretive Data Percent cell count reference ranges are not reported, since discordance with absolute values may lead to misinterpretation of CBC data. Current Interpretive Data was last revised on 2017. Monocyte pct 9.0 % [facility] Comment: Interpretive Data Percent cell count reference ranges are not reported, since discordance with absolute values may lead to misinterpretation of CBC data. Current Interpretive Data was last revised on 2017. Eosinophil pct 2.2 % [facility] Comment: Interpretive Data Percent cell count reference ranges are not reported, since discordance with absolute values may lead to misinterpretation of CBC data. Current Interpretive Data was last revised on 2017. Basophil pct 1.0 % [facility] Comment: Interpretive Data Percent cell count reference ranges are not reported, since discordance with absolute values may lead to misinterpretation of CBC data. Current Interpretive Data was last revised on 2017. Blood 12/13/2024 2:37 PM CDT 12/13/2024 2:55 PM CDT us Raffaele Mariee MD LAB BLOOD ORDERABLES Anastasiya enciso Result [facility] [place] [address] * (ABNORMAL) CBC with auto differential (12/13/2024 2:37 PM CDT) [facility] WBC 4.02 3.80 - 9.90 K/cumm Hgb 13.3 13.0 - 17.5 g/dL [facility] Hct 41.3 38.9 - 50.3 % [facility] Plt 56(L) 150 - 400 K/cumm [facility] Comment:No clot detected in sample. MPV Not Measured 9.1 - 12.3 fL [facility] RBC 5.39 4.30 - 5.80 M/cumm [facility] MCV 76.6(L) 81.3 - 96.4 fL [facility] MCH 24.7(L) 27.1 - 33.3 pg [facility] MCHC 32.2(L) 32.3 - 35.7 g/dL [facility] RDW CV 15.8(H) 11.1 - 14.9 % [facility] RDW SD 42.3 35.7 - 48.1 fL [facility] NRBC abs 0.00 0.00 - 0.01 K/cumm [facility] Blood 12/13/2024 2:37 PM CDT 12/13/2024 2:55 PM CDT us Raffaele Mariee MD LAB BLOOD ORDERABLES Anastasiya enciso Result [facility] Department [place] [address] * aPTT (12/13/2024 2:37 PM CDT) Pathologist [facility] aPTT 31 26 - 38 sec Comment: Interpretive Data Heparin therapeutic range: 66.0 - 100.0 seconds. Range based on correlation with therapeutic heparin activity range of 0.3 - 0.7 Units/mL. Current interpretive data was last revised on 2023. Blood 12/13/2024 2:37 PM CDT 12/13/2024 2:47 PM CDT Raffaele Mariee MD LAB BLOOD ORDERABLES Anastasiya l Result Performing Organization Address [facility] Co de Phone Number [facility] [place] [place] [address] * (ABNORMAL) Protime-INR (12/13/2024 2:37 PM CDT) PT 14.3(H) 10.2 - 13.5 sec INR 1.27(H) 0.90 - 1.20 [facility] Comment: Interpretive data Oral anticoagulant therapeutic ranges: Venous thromboembolism prophylaxis or treatment: 2.0-3.0 CARDIOLOGY Standard range: 2.0-3.0 High-intensity range: 2.5-3.5 Refer to indication-specific guidelines for appropriate target ranges for prosthetic heart valve replacement. Current interpretive data was last revised on 2019. Blood 12/13/2024 2:37 PM CDT 12/13/2024 2:47 PM CDT Raffaele Mariee MD LAB BLOOD ORDERABLES Anastasiya l Result Performing Organization Address [facility] Co de Phone Number [facility] [place] [address] * Type and screen (12/13/2024 2:37 PM CDT) Steve, indirect Negative ABO Rh A Positive [facility] Blood 12/13/2024 2:37 PM CDT 12/13/2024 2:50 PM CDT Narrative [facility] - 12/13/2024 3:47 PM CDT Has the patient had Daratumumab or Isatuximab in the past 6 months?->Unknown Raffaele Mariee MD LAB BLOOD BANK TEST ORDER SELINA Final Result Performing Organization Address City/[facility] Co de Phone Number [facility] [place] [address] * Lipase (12/13/2024 2:37 PM CDT) Lipase 11 10 - 99 Units/L Blood 12/13/2024 2:37 PM CDT 12/13/2024 2:55 PM CDT us Raffaele Mariee MD LAB BLOOD ORDERABLES Anastasiya enciso Result [facility] [place] [address] * (ABNORMAL) Comprehensive metabolic panel (12/13/2024 2:37 PM CDT) Pathologist [facility] Sodium 139 135 - 145 mmol/L Potassium, pl 5.0(H) 3.3 - 4.9 mmol/L [facility] Comment:Hemolyzed; Potassium value may be falsely elevated by as much as 0.6-1.0 mmol/L. Suggest redraw and reanalysis. Chloride 105 97 - 110 mmol/L [facility] CO2 24 22 - 32 mmol/L [facility] Anion gap 10 2 - 15 mmol/L [facility] BUN 13 6 - 25 mg/dL [facility] Creatinine 0.84 0.80 - 1.30 mg/dL [facility] Glucose 192 70 - 199 mg/dL [facility] Comment: Interpretive Data Fasting glucose >/= [...] 2022. Calcium 8.8 8.5 - 10.3 mg/dL [facility] Bilirubin, total 1.6(H) 0.1 - 1.2 mg/dL [facility] Protein, pl 7.5 6.5 - 8.5 g/dL [facility] Albumin 3.4(L) 3.5 - 5.0 g/dL [facility] Alk phos 151(H) 40 - 130 Units/L [facility] ALT 10 7 - 55 Units/L [facility] AST 45 10 - 50 Units/L [facility] Comment:Hemolyzed; result ma y be falsely elevated Blood 12/13/2024 2:37 PM CDT 12/13/2024 2:55 PM CDT us Raffaele Mariee MD LAB BLOOD ORDERABLES Anastasiya l Result [facility] Department [place] [address] * POCT glucose (12/13/2024 2:12 PM CDT) Pathologist [facility] Glucose, POC 179 70 - 199 mg/dL Blood 12/13/2024 2:12 PM CDT 12/13/2024 2:12 PM CDT us Notinfile Unknown LAB POCT ORDERABLES - DEVICE F inal Result Performing Organization Address [facility] Co de Phone Number [facility] Department [place] [address] * (ABNORMAL) Hemoglobin A1c (11/23/2023 8:40 AM CDT) [facility] Hgb A1C 10.0(H) 4.0 - 5.6 % Estimated Average Glucose 240 mg/dL [facility] Comment: The ADA recommends reporting [...] ORDERABLES Fi nal Result Performing Organization Address City/[facility]/ZIP Co de Phone Number [facility] [place] [address] * Albumin Creatinine Ratio, Urine (05/20/2021 9:36 AM BOARD WRITER) Albumin Ur <12.0 mg/L [facility] Comment: Interpretive Data No reference range established. Current interpretive data was last revised 2018. Creatinine Ur 47.6 mg/dL [facility] Comment: Interpretive Data No reference range established. Current interpretive data was last revised 2018. Albumin Creatinine Ratio, Ur <25 1 - 29 mg/g MOHINDER Urine 05/20/2021 9:36 AM BOARD WRITER 05/20/2021 7:41 PM BOARD WRITER us Simon Lundberg MD LAB URINE ORDERABLES Final Result Performing Organization Address City/[facility] Co de Phone Number MOHINDER [address] [facility] Department [place] [address] * COLONOSCOPY (12/17/2020 10:24 AM CDT) Anatomical [...] the physician, the nurse, the anesthesiologist, the media relations associate and thetechnician in the pre-procedure area in [...] The scope was passed under direct vision.The [id number] was introduced through the anusand advanced to the hepatic flexure. The colonoscopywas performed without difficulty. The patient tolerated the procedure well. The quality of the bowel preparation was unsatisfactory. The quality of the bowel preparation was evaluated using the BBPS([place] Bowel Preparation Scale) with scores of: RightColon [...] 12/17/2020 10:24 AM Elian Draper MD ENDOSCOPY ND OCEDURES Final Result * Serum Hepatitis panel (08/23/2015 5:23 PM CDT) HBV surface ag Negative NEG HISTO RICAL RESULTS HCV ab Negative NEG HISTORICAL RESULTS Comment: Interpretive Data If confirmation is required, call Laboratory Customer Service to request sample to be sent to [facility] for Hepatitis C Virus (HCV) RNA Detection and Quantitation by Real-Time Reverse Pipe Or Steam Fitter Furnace Installer-PCR (RT-PCR). Current interpretive data was last [...] Recently Relevant to Health Maintenance Insurance AETNA [facility] AETNA BETTER [facility] AETNA [facility] Advance Directives For more information, please contact: [phone] * Full Code (Latest Code Status on [...] 9:18 AM 12/17/2020 4:00 PM Care Teams Patient Transporter Relationship Specialty Start Date End Date Braydon Pavon PA [address] [place] [address] PCP - General 08/23/21 [place] [address] [address] [facility] [address] [place] [address] Consulting Physician Endocrinology 05/20/21 [place] [address] [address] [facility] [address] [place] [address] Consulting Physician Internal Medicine 05/20/21
--- OUTSIDE RECORDS SUMMARY | 2025-01-23 12:23 | XMS_ITS | Encounter Summary ---
Author Organization [facility] Healthcare Address [address] [place] [address] Care Team Providers Care Extension Specialist Name Role Phone Nacho Rodriguez MD Unavailable [phone] Elian Gross MD Unavailable Braydon Pavon Primary Care Provider [phone] Encounter Details Date Type Department Care Team (Late st Contact Info) Description 12/14/2024 Hospital Encounter [facility] Operating Room [address] [place] [id number] Valeriano Torres MD 1 [facility] [address] [place], [place] [id number] Social History Tobacco Use Types Packs/Day Years [...] file Legal Sex Male 2:52 PM CLINICAL PHARMACY TECHNICIAN Gender Identity Male 10/29/2020 12:37 PM CDT Sexual Orientation Straight 10/29/2020 12 :37 PM CDT documented as of this encounter Functional Status * AUDIT-C Score Answer Date of Assessment Author 0 01/12/2025 1:06 PM MIANT Adis Mitchell CMA * Question Answer Date of Assessment Author Q1: How often do you have a drink containing alcohol? Never 01/12/2025 1:06 PM Adis Watson CMA Q2: How many drinks containing alcohol do you have on a typical day when you are drinking? Patient does not drink 01/12/2025 1:06 PM Adis Watson CMA Q3: How often do you have six or more drinks on one occasion? Never 01/12/2025 1:06 PM Adis Watson CMA documented as of this encounter Plan of [...] obstruction documented in this encounter Care Teams Extension Specialist Relationship Specialty Start Date End Date Braydon Pavon PA [address] [place] [id number] PCP - General 08/23/21 [place] [address] [address] [address] Consulting Physician Endocrinology 05/20/21 [place] [address] [address] [address] Consulting Physician Internal Medicine 05/20/21 documented as of this encounter
--- OUTSIDE RECORDS SUMMARY | 2025-01-23 12:23 | XMS_ITS | Clinical Summary ---
Author Organization [facility] Address [address] [facility] Attn: Epic Prelude ADT [place] [address] Care Team Providers Care Cooker Operator Name Role Phone Carlos Mcdonnell DO [...] on file Legal Sex Male 6:23 AM POWER AND RECOVERY SUPERINTENDENT Gender Identity Not on file Sexual Orientation Not on file Last Filed Vital Signs Vital Sign Reading Time Taken Comments Blood Pressure 147/78 06/30/2024 10:10 PM POWER AND RECOVERY SUPERINTENDENT Pulse 89 06/30/2024 10:55 PM POWER AND RECOVERY SUPERINTENDENT Temperature 36.4 C (97.5 F) 06/30/2024 5:45 PM POWER AND RECOVERY SUPERINTENDENT Respiratory Rate 13 06/30/2024 10:55 PM POWER AND RECOVERY SUPERINTENDENT Oxygen Saturation 96% 06/30/2024 10:55 PM POWER AND RECOVERY SUPERINTENDENT Inhaled Oxygen Concentration - - Weight - [...] 09/10/2015 ZOSTER VACCINE (1 of 2) 2020 DIABETES ANNUAL FOOT EXAM 06/01/2024 06/01/2023 INFLUENZA VACCINE (#1) 2024 DIABETES HBA1C Q 6 MONTHS 12/07/20242024, 05/31/2024, 11/23/2023, Additional history exists COVID-19 Vaccine (3 - 2024-2 6 season) 2025 12/29/2020, 12/08/2020 COLORECTAL SCREENING 12/17/2030 12/17/2020, 12/17/2020, 05/04/2005 Colorectal Cancer Screening 12/17/2030 Abdominal Aortic Aneurysm (A AA) Screening Completed 01/20/2024, 05/20/2023, 10/27/2018, Additional history exists Insurance [facility] MED[facility] Care Teams Cooker Operator Relationship Specialty Start Date End Date Carlos Mcdonnell DO PCP - General 11/18/07
--- OUTSIDE RECORDS SUMMARY | 2025-01-23 12:23 | XMS_ITS | Encounter Summary ---
Author Organization [facility] Healthcare Address [address] [place] [address] Care Team Providers Care Slasher Tender Name Role Phone Braydon Pavon Primary Care Provider [phone] Nikolay Lancaster MD Unavailable [phone] Simon Lundberg MD Primary Care Provider [phone] Nacho Rodriguez MD Unavailable [phone] Elian Gross MD Unavailable Braydon Pavon Primary Care Provider [phone] Encounter Details Date Type Department Care Team (Late st Contact Info) Description 09/14/2020 Telephone [facility] Imaging [address] [place], [place] [id number] Trice Aldana, RT Social History Tobacco Use [...] on file Legal Sex Male 2:52 PM 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 Gender Identity Male 10/29/2020 12:37 PM CDT Sexual Orientation Straight 10/29/2020 12 :37 PM CDT documented as of this encounter Plan of Treatment Not on file documented as of this encounter Visit Diagnoses Not on filedocumented in this encounter Care Teams Slasher Tender Relationship Specialty Start Date End Date Braydon Pavon PA [address] [place] [address] PCP - General Family Practice 05/09/20 05/19/21 Simon Lundberg MD [address] [place] [address] PCP - General Family Medicine 05/20/21 08/22/21 Braydon Pavon PA [address] [place] [address] PCP - General 08/23/21 Nikolay Lancaster MD [address] [place] [address] 05/09/20 05/19/21 [place] [address] [facility] [address] [address] Consulting Physician Endocrinology 05/20/21 [place] [address] [facility] [address] [address] Consulting Physician Internal Medicine 05/20/21 documented as of this encounter
--- OUTSIDE RECORDS SUMMARY | 2025-01-23 12:23 | XMS_ITS | Clinical Summary ---
Author Organization [facility] Address [address] [place] [address] Care Team Providers Care Geophysical Data Technician Name Role Phone Braydon Pavon Primary Care Provider [phone] Allergies Active Allergy Reactions Criticality Noted Date [...] (two) times daily. Active vitamin D2, ergocalciferol, 98416 UNITS capsule Take 1 capsule (50,000 Units total) by mouth every 30 (thirty) days. Active Insulin Pen Needle (PEN NEEDLES) 32G X 4 MM Misc Inject 3 times daily Active ONE TOUCH ULTRA TEST STRIPS test stripIndications: Type 2 diabetes mellitus with hyperglycemia, with long-term current use of insulin ([facility]) [...] hyperglycemia, with long-term current use of insulin ([facility]) Inject 0.4 mLs (200 Units total) into the skin 3 (three) times daily before meals. 18 mL 11 Active Additional Information Patient taking differently:200 Units Subcutaneous 3 times daily before meals,Pt taking 200 units three times, Reported on 05/31/2024 tirzepatide (MOUNJARO) 2.5 MG/0.5ML injectionIndicati ons:Diabetes Mellitus [...] hyperglycemia, with long-term current use of insulin ([facility]) TAKE 1 TABLET (500 MG TOTAL) BY MOUTH DAILY WITH SUPPER. 90 tablet 1 Active Continuous Glucose Sensor (DEXCOM G7 SENSOR) MiscIndications:T ype 2 diabetes mellitus with hyperglycemia, with long-term current use of insulin ([facility]) CHANGE SENSOR EVERY 10 DAYS 3 each 2 025 Active Continuous Glucose Sensor (DEXCOM G7 SENSOR) MiscIndications:T ype 2 diabetes mellitus with hyperglycemia, with long-term current use of insulin ([facility]) CHANGE SENSOR EVERY 10 DAYS 3 each 11 024 2024 Discontinued Active Problems Problem Noted Date Diagnosed Date Diabetic neuropathy associat ed with type 2 diabetes mellitus ([facility]) 10/29/2020 Lumbar degenerative disc disease 05/23/2019 Essential hypertension 07/21/2018 TRACY (obstructive sleep apnea) 09/14/2016 Thrombocytopenia 09/14/2016 Esophageal varices ([facility]) 09/09/2016 Hepatic encephalopathy ([facility]) 017 Type 2 diabetes mellitus wit h hyperglycemia, with long-term current use of insulin ([facility]) 09/09/2016 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 s/p TIPS in 2015. -RUQ today showing TIPS with slower velocity compared to 08/2017 but still patent, rec close FU. -rifaximin -holding lactulose for diarrhea -should have BB outpt Resolved Problems Problem Noted Date Diagnosed Date Resolved Date Bacterial endocarditis ([facility]) 05/14/2020 06/05/2024 BLAND (nonalcoholic steatohepatitis) 07/21/2018 04/05/2019 Diabetes mellitus, type 2 ([facility]) 02/02/2018 06/05/2024 Morbid obesity 12/09/2016 06/05/2024 [...] Vaccines (1 of 2) 2020 PHQ-2 (Physician [place]) 05/04/2024 02/15/2024 Hemoglobin A1C 09/06/2024 06/09/2024, 05/05, [...] this topic Medical Devices Implanted Type Area Landing Worker Device Identifier Shelf Expiration Date Model / Serial / Lot [employer]ar Stent-01/02/2021 Implanted: 021 (Quantity not on file) Stent Abdomen [employer] - [employer] R BARD [id number] / / Description:Non-clinical silvia ting demonstrated that [...] field of 720 Gauss/cm or less Maximum uxnkc-xpuf-iorfinyd specific absorption rate (IVANA) of 2-W/kg for 15 minutes of scanning for patient landmarks above the umbilicus. Maximum WB-IVANA of 1 W/kg for 15 min. of scanning for patient landmarks below the umbilicus. Procedures Procedure Name Priority Date/Time Associated Diagnosis Comments HEMOGLOBIN, GLYCOSYLATED Routine 05/31/2024 Type 2 diabetes mellitus with hyperglycemia, with long-term current use of insulin ([facility]) from Last 3 Months or Most Recently Relevant to Health Maintenance Results * HEMOGLOBIN, GLYCOSYLATED (05/31/2024) HGB A1C 10.3 % [address] [place] 05/31/2024 us Eva Power MD LABORATORY Final Result [address] [place] [address] [place] [address], from Last 3 Months or Most Recently Relevant to Health Maintenance Insurance [facility] Care Teams Geophysical Data Technician Relationship Specialty Start Date End Date Braydon Pavon PA PCP - General PHYSICIAN RECRUITING SPECIALIST 03/02/19
--- OUTSIDE RECORDS SUMMARY | 2025-01-23 12:23 | XMS_ITS | Patient Health Record ---
Author Organization [facility] [employer] [facility] Address [address] [place] [address] Care Team Providers Care Drill Press Operator Numerical Control Name Role Phone VIKTORIA FLORIAN Unavailable [phone] Reason For Referral No Information Plan Of Treatment No Information
--- OUTSIDE RECORDS SUMMARY | 2025-01-23 12:23 | XMS_ITS | Encounter Summary ---
Author Organization [facility] Address [facility] [place] [address] Care Team Providers Care Inspector Plug Seam Name Role Phone Braydon Pavon Primary Care Provider [phone] Nikolay Lancaster MD Primary Care Provider [phone] Braydon Pavon Primary Care Provider [phone] Reason for Visit * Reason Onset Date Comments MEDICATION REFILL 09/08/2018 Encounter Details Date Type Department Care Team (Late st Contact Info) Description 09/08/2018 Refill [facility] [address] [facility] [place] [address] Edmond Choi MD [address] [facility] [address] [facility] [place] [address] MEDICATION REFILL Social History Tobacco Use Types Packs/Day Years Used Date Smoking Tobacco: Former Smokeless Tobacco: Never Alcohol Use Standard Drinks/Week Comments No 0 (1 standard drink = 0.6 oz pur e alcohol) Sex and Gender Information Value Date Recorded Sex Assigned at Not on file Legal Sex Male 8:18 AM CASINO CASHIER Gender Identity Not on file Sexual Orientation Not on file documented as of this encounter Plan of Treatment Not on file documented as of this encounter Visit Diagnoses Not on filedocumented in this encounter Additional Health Concerns Infection Onset Date Last Indicated Resolved Time COVID-19 Under Investigation 06/08/2024 06/08/2024 06/08/2024 4:31 PM CASINO CASHIER Influenza A or B Comment:OSH result 06/08/2024 06/09/2024 06/15/2024 4:[address] documented as of this encounter Care Teams Inspector Plug Seam Relationship Specialty Start Date End Date Braydon Pavon PA [address] [place] [address] PCP - General Physician Highway Commissioner 05/19/18 10/03/18 Nikolay Lancaster MD [address] [place] [address] PCP - General 10/04/18 07/13/23 Braydon Pavon PA [address] [place] [address] PCP - General Physician Highway Commissioner 07/14/23 documented as of this encounter
--- OUTSIDE RECORDS SUMMARY | 2025-01-23 12:23 | XMS_ITS | Encounter Summary ---
Author Organization [facility] Healthcare Address [address] [place] [address] Care Team Providers Care College Director Name Role Phone Braydon Pavon Primary Care Provider [phone] Nikolay Lancaster MD Unavailable [phone] Simon Lundberg MD Primary Care Provider [phone] Nacho Rodriguez MD Unavailable [phone] Elian Gross MD Unavailable Braydon Pavon Primary Care Provider [phone] Encounter Details Date Type Department Care Team (Late st Contact Info) Description 10/05/2020 Telephone [facility] [address] [place], [place] [id number] Trice Aldana, RT Social History Tobacco Use [...] file Legal 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 Gender Identity Male 10/29/2020 12:37 PM CDT Sexual Orientation Straight 10/29/2020 12 :37 PM CDT documented as of this encounter Plan of Treatment Not on file documented as of this encounter Visit Diagnoses Not on filedocumented in this encounter Care Teams College Director Relationship Specialty Start Date End Date Braydon Pavon PA [address] [place] [address] PCP - General Family Practice 05/09/20 05/19/21 Simon Lundberg MD [address] [place] [address] PCP - General Family Medicine 05/20/21 08/22/21 Braydon Pavon PA [address] [place] [address] PCP - General 08/23/21 Nikolay Lancaster MD [address] [place] [address] 05/09/20 05/19/21 [place] [address] [address] [facility] [address] [place] [address] Consulting Physician Endocrinology 05/20/21 [place] [address] [address] [facility] [address] [place] [address] Consulting Physician Internal Medicine 05/20/21 documented as of this encounter
--- OUTSIDE RECORDS SUMMARY | 2025-01-23 12:23 | XMS_ITS | Clinical Summary ---
Author Organization [facility] Address [address] [facility] [place] [address] Care Team Providers Care Environmental Epidemiologist Name Role Phone Braydon Pavon Primary Care Provider [phone] Source Comments [facility],non-owned Affiliates and Associated Physician Practices is amultiple site organization consisting of ambulatory clinics and hospital sitesin [place], [place], [place] and [place]. This disclosure is being madepursuant to the Care Everywhere program and may not contain all information available regarding this patient. Last updated 18.[facility] Allergies Active Allergy Reactions Criticality Noted Date [...] WC - CONFIRMED WITH [facility] [phone], Reason: Provider adjusted, Reported on 06/09/2024 blood [...] dissolve on the tongue Active HYDROcodone-ac etaminophen ([facility]) 10-325 MG tablet Take 1 (one) tablet [...] Insulin Regular Human (HUMULIN R U-500 IKPEN ME) Inject 200 Units subcutaneously 3 times daily [...] care, and heating? Not very hard 06/08/2024 [facility] - Occupational Stress [...] any time in the past 12 m [facility], were you homeless or living in a alf (including now)? No 06/08/2024 Sex and Gender Information Value Date Recorded Sex Assigned at Not on file Legal Sex Male 8:18 AM HARNESS FITTER Gender Identity Not on file Sexual Orientation Not on file Last Filed Vital Signs Vital Sign Reading Time Taken Comments Blood Pressure 110/69 06/10/2024 3:45 PM HARNESS FITTER Pulse 81 06/10/2024 3:45 PM HARNESS FITTER Temperature 36.8 C (98.2 F) 06/10/2024 3:45 PM HARNESS FITTER Respiratory Rate 19 06/10/2024 3:45 PM HARNESS FITTER Oxygen Saturation 94% 06/10/2024 3:45 PM HARNESS FITTER Inhaled Oxygen Concentration - - Weight 99.8 kg (220 lb) 06/08/2024 3:47 PM HARNESS FITTER Height 170.2 cm (5' 7) 06/08/2024 3:47 PM HARNESS FITTER Body Mass Index 34.46 06/08/2024 3:47 PM HARNESS FITTER Plan of Treatment Health Maintenance Due Date [...] (CALCIUM TOTAL) AM Draw 06/10/2024 4:45 AM HARNESS FITTER HEMOGLOBIN A1C Routine 06/09/2024 1:59 AM HARNESS FITTER from Last 3 Months or Most Recently Relevant to Health Maintenance Results * (ABNORMAL) BASIC METABOLIC PANEL (CALCIUM TOTAL) (06/10/2024 4:45 AM HARNESS FITTER) Glucose 107(H) 70 - 99 mg/dL 06/10/2024 5:25 AM HARNESS FITTER [facility] Sodium 139 136 - 145 mmol/L 06/10/2024 5:25 AM HARNESS FITTER [facility] Potassium 3.4(L) 3.5 - 5.1 mmol/L 06/10/2024 5:25 AM HARNESS FITTER [facility] Chloride 107 98 - 107 mmol/L 06/10/2024 5:25 AM HARNESS FITTER [facility] CO2 22 22 - 29 mmol/L 06/10/2024 5:25 AM HARNESS FITTER [facility] Calcium 8.2(L) 8.4 - 10.4 mg/dL 06/10/2024 5:25 AM [facility] Anion Gap 10 6 - 16 mmol/L 06/10/2024 5:25 AM [facility] BUN 15 7 - 26 mg/dL 06/10/2024 5:25 AM [facility] Creatinine 0.70(L) 0.72 - 1.25 mg/dL 06/10/2024 5:25 AM [facility] eGFR by CKD-EPI >90 >=90 mL/min/1.7 3 m2 06/10/2024 5:25 AM [facility] Blood BLOOD SPECIMEN / Unknown Venipuncture / Unknown 06/10/2024 4:45 AM HARNESS FITTER 06/10/2024 5:01 AM [facility] Olimpia No MD LAB - CHEMISTRY ORDERABLES Fi nal Result [facility] [address] [place] [address] * (ABNORMAL) HEMOGLOBIN A1C (06/09/2024 1:59 AM [facility]) Hemoglobin A1c 9.1(H) <5.7 % 06/09/2024 2:28 AM [facility] Estimated Average Glucose 214 mg/dL 06/09/2024 2:28 AM [facility] Blood BLOOD SPECIMEN / Unknown Venipuncture / Unknown 06/09/2024 1:59 AM HARNESS FITTER 06/09/2024 2:15 AM [facility] Narrative [facility] - 06/09/2024 2:28 AM [facility] HbA1c Interpretation: Normal: < 5.7% [...] LAB - CHEMISTRY ORDERABLES Anastasiya enciso Result [facility] [address] [place] [address] from Last 3 Months or Most Recently Relevant to Health Maintenance Insurance MEDICAID [employer] [facility] [place] Advance Directives * Full Code (Latest Code Status on File) Date Activated Date Inactivated Comments 06/08/2024 3:48 PM 06/10/2024 7:18 PM Care Teams Environmental Epidemiologist Relationship Specialty Start Date End Date Braydon Pavon PA [address] [place] [address] PCP - General Physician Hand Candle Molder 3/12/24
--- OUTSIDE RECORDS SUMMARY | 2025-01-23 12:23 | XMS_ITS | Clinical Summary ---
Author Organization [facility] Address [address] [place] [address] Phone Care Team Providers Care Recyclable Materials Collector Name Role Phone Braydon Pavon Kunal NEAL Primary Care Provider Vikram Mora MD Unavailable Riddhi Bello APRN, CYBER SYSTEMS ENGINEER Unavailable Andrea Hawkins MD Unavailable [phone] Allergies Active Allergy Reactions Criticality Noted Date [...] route. 1 Active Insulin Pen Needle (Pen [place]) 32G X 4 MM Misc Inject 3 times daily 0 Active traZODone (DESYREL) 100 MG Tablet nightly. 3 Active HYDROcodone-bella taminophen (NORCO) 7.5-325 MG Tablet Take 10 Tablets by mouth three times a week. Active ondansetron (ZOFRAN-ODT) 4 MG TABLET DISPERSIBLE Take 1 Tablet by mouth every 8 hours as needed for Nausea - 1st line. 10 Tablet 4 Active Continuous Blood Gluc Break And Load Operator (Dexcom G7 Break And Load Operator) Device Check blood glucose before each meal and at bedtime 1 Each 4 Active HYDROcodone-bella taminophen ([place]) 10-325 MG Tablet Take 1 Tablet by [...] Description 10/31/2024 10:30 AM CDT Office Visit [facility] - Neurology [facility] [address] [place] [address] Andrea Hawkins MD Diabetic polyneuropathy associated with [...] on file Legal Sex Male 10:58 AM CUSTOM WOOD STAIR BUILDER Gender Identity Not on file Sexual Orientation [...] Visit [facility] - Neurology [facility] [address] [place] [address] Andrea Hawkins MD [address] [place] [address] Health Maintenance Due Date Last Done Comments [...] W/ ESTIMATED GLUCOSE STAT 05/20/2023 10:44 AM CUSTOM WOOD STAIR BUILDER from Last 3 Months or Most Recently Relevant to Health Maintenance Results * (ABNORMAL) CBC WITH AUTO DIFFERENTIAL (10/31/2024 11:44 AM CDT) WBC 6.91 4.00 - 12.00 10(3)/mcL 10/31/2024 12:38 PM CDT [facility] RBC 5.79 4.40 - 5.80 10(6)/mcL 10/31/2024 12:38 PM CDT [facility] HEMOGLOBIN (HGB) 15.2 13.0 - 16.5 g/dL 10/31/2024 12:38 PM CDT [facility] HEMATOCRIT (HCT) 47.2 38.0 - 50.0 % 10/31/2024 12:38 PM CDT [facility] MCV 81.5(L) 82.0 - 96.0 fL 10/31/2024 12:38 PM CDT [facility] MCH 26.3 26.0 - 32.0 pg 10/31/2024 12:38 PM CDT [facility] MCHC 32.2 31.0 - 36.0 g/dL 10/31/2024 12:38 PM CDT [facility] PLATELET COUNT 76(L) 140 - 440 10(3)/mcL 10/31/2024 12:38 PM CDT [facility] RDW 13.5 11.8 - 15.5 % 10/31/2024 12:38 PM CDT [facility] MPV 12.2 8.0 - 12.6 fL 10/31/2024 12:38 PM CDT [facility] NEUTROPHILS 79.2(H) 40.0 - 68.0 % 10/31/2024 12:38 PM CDT [facility] LYMPHOCYTES 10.1(L) 19.0 - 49.0 % 10/31/2024 12:38 PM CDT [facility] MONOCYTES 8.0 3.0 - 13.0 % 10/31/2024 12:38 PM CDT [facility] EOSINOPHILS 1.4 0.0 - 8.0 % 10/31/2024 12:38 PM CDT [facility] BASOPHILS 0.7 0.0 - 1.0 % 10/31/2024 12:38 PM CDT [facility] IMMATURE GRANULOCYTE 0.6(H) 0.0 - 0.4 % 10/31/2024 12:38 PM CDT [facility] Comment:Immature Granulocyte s includes Metamyelocytes, Myelocytes, and Promyelocytes. ABSOLUTE NEUTROPHILS 5.47(H) 1.40 - 5.30 10(3)/mcL 10/31/2024 12:38 PM CDT [facility] ABSOLUTE LYMPHOCYTES 0.70(L) 0.90 - 3.30 10(3)/mcL 10/31/2024 12:38 PM CDT [facility] ABSOLUTE MONOCYTES 0.55 0.10 - 0.90 10(3)/[facility] 10/31/2024 12:38 PM CDT [facility] ABSOLUTE EOSINOPHIL 0.10 0.00 - 0.50 10(3)/mcL 10/31/2024 12:38 PM CDT [facility] ABSOLUTE BASOPHILS 0.05 0.00 - 0.10 10(3)/[facility] 10/31/2024 12:38 PM CDT [facility] ABSOLUTE IMMATURE GRANULOCYTE 0.04(H) 0.00 - 0.03 10 (3) mcL. 10/31/2024 12:38 PM CDT [facility] NRBC PER 100 WBC 0 11/01/19 12:38 PM CDT [facility] Blood Venipuncture / Unknown 10/31/2024 11:44 AM CDT 10/31/2024 12:20 PM CDT us Andrea Hawkins MD HEMATOLOGY ORDERABLES Final Result Performing Organization Address City/[facility]/ZIP Co de Phone Number [facility] [address] [place] [address] * VITAMIN B12 (10/31/2024 11:44 AM CDT) VITAMIN B12 504 213 - 816 pg/mL 10/31/2024 2:02 PM CDT [facility] Blood Venipuncture / Unknown 10/31/2024 11:44 AM CDT 10/31/2024 12:20 PM CDT us Andrea Hawkins MD CHEMISTRY ORDERABLES Final R esult Performing Organization Address City/[facility] Co de Phone Number [facility] [address] [place] [address] * THYROID STIMULATING HORMONE (TSH) (10/31/2024 11:44 AM CDT) TSH 1.180 0.300 - 5.000 mIU/L 10/31/2024 2:03 PM CDT [facility] Blood Venipuncture / Unknown 10/31/2024 11:44 AM CDT 10/31/2024 12:20 PM CDT us Andrea Hawkins MD CHEMISTRY ORDERABLES Final R esult Performing Organization Address City/[facility]/ZIP Co de Phone Number [facility] [address] [place] [address] * FOLIC ACID (FOLATE) (10/31/2024 11:44 AM CDT) FOLATE 11.0 7.0 - 31.4 ng/mL 10/31/2024 2:02 PM CDT [facility] IS THE PATIENT REQUIRED TO BE FASTING? No 10/31/2024 2:02 PM CDT [facility] Blood Venipuncture / Unknown 10/31/2024 11:44 AM CDT 10/31/2024 12:20 PM CDT us Andrea Hawkins MD CHEMISTRY ORDERABLES Final R esult [facility] [address] [place] [address] * (ABNORMAL) CMP (COMPREHENSIVE METABOLIC PANEL) (10/31/2024 11:44 AM CDT) SODIUM 136 136 - 145 mmol/L 10/31/2024 1:57 PM CDT [facility] POTASSIUM 4.6 3.5 - 5.1 mmol/L 10/31/2024 1:57 PM CDT [facility] CHLORIDE 102 98 - 107 mmol/L 10/31/2024 1:57 PM CDT [facility] CO2, VENOUS 25 22 - 30 mmol/L 10/31/2024 1:57 PM CDT [facility] ANION GAP 13.6 <18.0 mmol/L 10/31/2024 1:57 PM CDT [facility] GLUCOSE 325(H) 70 - 99 mg/dL 10/31/2024 1:57 PM CDT [facility] BUN 17 8 - 26 mg/dL 10/31/2024 1:57 PM CDT [facility] CREATININE, BLOOD 1.10 0.70 - 1.30 mg/dL 10/31/2024 1:57 PM CDT [facility] BUN/CREATININE RATIO 15 12 - 20 ratio 10/31/2024 1:57 PM CDT [facility] TOTAL PROTEIN 7.8 6.0 - 8.0 g/dL 10/31/2024 1:57 PM CDT [facility] ALBUMIN 3.9 3.5 - 5.0 g/dL 10/31/2024 1:57 PM CDT [facility] A/G RATIO 1.0 1.0 - 2.2 10/31/2024 1:57 PM CDT [facility] CALCIUM 9.3 8.7 - 10.5 mg/dL 10/31/2024 1:57 PM CDT [facility] T BILI 1.3(H) 0.2 - 1.2 mg/dL 10/31/2024 1:57 PM CDT [facility] SGOT (AST) 21 <43 U/L 10/31/2024 1:57 PM CDT [facility] SGPT (ALT) 11 <56 U/L 10/31/2024 1:57 PM CDT [facility] ALKALINE PHOSPHATASE 96 40 - 150 U/L 10/31/2024 1:57 PM CDT [facility] IS THE PATIENT REQUIRED TO BE FASTING? No 10/31/2024 1:57 PM CDT [facility] GFR, ESTIMATED >60 >=60 10/31/2024 1:57 PM CDT [facility] Comment: Creatinine Clearance is the preferred criteria for selecting drug dose adjustments in renally impaired patients. The GFR is provided as additional pertinent clinical information. GFR is reported in mL/min/1.73 sq m. Calculation based on the Chronic Kidney Disease Epidemiology Collaboration (CKD- EPI) equation refit without adjustment for race. GFR, EST. >60 >=60 025 1:57 PM CDT [facility] GFR, EST. NONAFRICAN >60 >=60 10/31/2024 1:57 PM CDT [facility] Blood Venipuncture / Unknown 10/31/2024 11:44 AM CDT 10/31/2024 12:20 PM CDT us Andrea Hawkins MD CHEMISTRY ORDERABLES Final R esult [facility] [address] [place] [address] * (ABNORMAL) Hemoglobin A1C (05/20/2023 10:44 AM CUSTOM WOOD STAIR BUILDER) HGB-A1C 11.6(H) 4.0 - 6.0 % 05/20/2023 12:30 PM CUSTOM WOOD STAIR BUILDER [facility] Est Average Glucose 286.2 mg/dL 05/20/2023 12:30 PM CUSTOM WOOD STAIR BUILDER [facility] Blood Venipuncture / Unknown 05/20/2023 10:44 AM CUSTOM WOOD STAIR BUILDER 05/20/2023 11:01 AM CUSTOM WOOD STAIR BUILDER Narrative [facility] - 05/20/2023 12:30 PM CUSTOM WOOD STAIR BUILDER HEMOGLOBIN A1C: DIABETIC PATIENTS: WELL-CONTROLLED: 6.2 - 7.0 INTERMEDIATE WELL-CONTROLLED: 7.0 - 9.0 POORLY-CONTROLLED: >9.0 Felicitas Luz APRN, CYBER SYSTEMS ENGINEER CHEMISTRY ORDERABLES Final Result Performing Organization Address [facility] Co de Phone Number [facility] [address] [place] [address] from Last 3 Months or Most Recently Relevant to Health Maintenance [facility] [address] [address] [place] [address] Care Teams Recyclable Materials Collector Relationship Specialty Start Date End Date Braydon Pavon PAC [address] [place] [address] PCP - General Physician Medical Technical Writer 06/22/18 Vikram Mora MD [address] [phone] Consulting Physician Endocrinology 05/21/23 Riddhi Bello APRN, CYBER SYSTEMS ENGINEER [address] [place] [address] Nurse Practitioner Advanced Practice Nurse 02/10/23 Andrea Hawkins MD [address] [place] [phone] Consulting Physician Neurology 10/31/24
[2025-01-23 15:05] LABS: Hematocrit 34.7 % (40.0-54.0); Hemoglobin 10.8 g/dL (14.0-18.0); Immature Platelet Fraction Pct 7.8 % (1.0-7.0); Mean Corpuscular HGB Conc 31.1 g/dL (32-36); Mean Corpuscular Hemoglobin 25.3 pg (27.0-31.0); Mean Corpuscular Volume 81.3 fL (78.0-102.0); Platelet Count Result 36 K/mm3 (150-420); Red Blood Count 4.27 M/mm3 (4.70-6.10); White Blood Count 3.9 K/mm3 (4.8-10.8)
[2025-01-23 15:18] LABS: Anion Gap 8 mmol/L (4-12); Blood Urea Nitrogen 16 mg/dL (9-20); Calcium 8.0 mg/dL (8.4-10.2); Carbon Dioxide 24 mmol/L (22-30); Chloride 109 mmol/L (98-107); Estimated CRCL calculation 77 ml/min; Estimated Glomerular Filt Rate > 60; Glucose 321 mg/dL (65-110); Osmolality Calculated 305 mOsm/kg (285-295); Potassium 4.7 mmol/L (3.4-5.0); Sodium 141 mmol/L (137-145)
[2025-01-23] MEDS: CEFEPIME 2 GM in SODIUM CHLORIDE 0.9% IV 50 ML 100 ML IVPB (16:16)
[2025-01-23] MEDS: ONDANSETRON INJ 4 MG/2 ML VIAL IV PUSH (19:56)
[2025-01-23] MEDS: GABAPENTIN 300 MG CAPSULE PO (21:50)
[2025-01-23] MEDS: PREGABALIN (*CRX) 100 MG CAPSULE PO (21:52)
[2025-01-24] VITALS: BP 93/64; PULSE 74; PULSE 83; RESP 18; TEMP 37.2; O2SAT 91
--- NOTE | 2025-01-24 | CONSULT_PTH ---
PATIENT: Camilo Curry Jr. LOC: [facility] U#:[id number] AGE/SX: 54/M ROOM: [facility] RE01/23/[address]: Maurice Ervin MD : 1970 BED: 1 DIS: 01/24/2025 SPEC #: [id number] RECD: 01/24/25 08:02 STATUS: KARINA REYvonne #: [id number] PAXTON: 01/24/25 00:[address]: Julian Ervin DEPT: [facility] Consult RECD BY: Mary Grace Muñoz MLT, ([facility]) ENTERED: 01/24/25 08:03 SP TYPE: Consult OTHR DR: Braydon Pavon, PA Tissues: A - Peripheral Smear Procedures: Hematology Consult
[2025-01-24] MEDS: CEFEPIME 2 GM in SODIUM CHLORIDE 0.9% IV 50 ML 100 ML IVPB ×2 (00:04→07:59)
[2025-01-24] MEDS: SODIUM CHLORIDE 0.9% IV 1,000 ML 125 ML IV CONT (01:52)
[2025-01-24] MEDS: HYDROcodone/acetaminophen (*CRX) 10-325 MG TABLET 1 TAB PO ×2 (02:04→07:05)
[2025-01-24 04:00] VITALS: BP 100/61; PULSE 67; PULSE 68; RESP 16; TEMP 36.9; O2SAT 95
--- NOTE | 2025-01-24 04:39 | PC.NURSE ---
Patient's IV has been beeping off and on most of the night, as the IV is in the RAC. Patient has attempted to keep his arm straight, but it is still beeping. Patient asked for the IV to be paused, so that he can get some sleep. He has slept off and on, but not for very long at a time. IV was paused on the JUL.
[2025-01-24 05:57] LABS: Hematocrit 35.1 % (40.0-54.0); Hemoglobin 10.8 g/dL (14.0-18.0); Immature Platelet Fraction Pct 9.3 % (1.0-7.0); Mean Corpuscular HGB Conc 30.8 g/dL (32-36); Mean Corpuscular Hemoglobin 25.1 pg (27.0-31.0); Mean Corpuscular Volume 81.4 fL (78.0-102.0); Platelet Count Result 29 K/mm3 (150-420); Red Blood Count 4.31 M/mm3 (4.70-6.10); White Blood Count 2.0 K/mm3 (4.8-10.8)
[2025-01-24 06:15] LABS: Band Neutrophils Percent 0 % (0-6); Basophils Absolute Manual 0.00 K/mm3 (0-0.1); Basophils Percent Manual 0 % (0-1); Eosinophils Absolute Manual 0.04 K/mm3 (0.02-0.50); Eosinophils Percent Manual 2 % (1-6); Lymphocytes Absolute Manual 0.28 K/mm3 (1.1-4.5); Lymphocytes Percent Manual 14 % (18-44); Monocytes Absolute Manual 0.16 K/mm3 (0.1-0.90); Monocytes Percent Manual 8 % (3-9); Neutrophils Absolute Manual 1.52 K/mm3 (1.3-6.7); Neutrophils Percent Manual 76 % (46-73)
[2025-01-24 06:24] LABS: Alanine Aminotransferase 10 U/L (6-50); Albumin Level 2.8 g/dL (3.5-5.1); Alkaline Phosphatase 97 U/L (38-126); Anion Gap 6 mmol/L (4-12); Aspartate Amino Transferase 18 U/L (17-59); Bilirubin,Total 1.5 mg/dL (0.2-1.3); Blood Urea Nitrogen 15 mg/dL (9-20); Calcium 8.0 mg/dL (8.4-10.2); Carbon Dioxide 26 mmol/L (22-30); Chloride 109 mmol/L (98-107); Estimated CRCL calculation 98 ml/min; Estimated Glomerular Filt Rate > 60; Glucose 162 mg/dL (65-110); Osmolality Calculated 296 mOsm/kg (285-295); Potassium 4.2 mmol/L (3.4-5.0); Sodium 141 mmol/L (137-145); Total Protein 5.6 g/dL (6.3-8.2)
[2025-01-24 08:00] VITALS: TEMP 36.3
[2025-01-24] MEDS: ONDANSETRON INJ 4 MG/2 ML VIAL IV PUSH (08:01)
[2025-01-24 08:30] VITALS: BP 116/63; PULSE 67; RESP 20; TEMP 36.3; O2SAT 97
--- NOTE | 2025-01-24 09:32 | PM.DS ---
DS: Admitting Diagnosis Discharge Date 01/24/25 Admitting Diagnosis Sirs, febrile illness DS: Discharge Diagnosis Discharge Diagnosis (1) SIRS (systemic inflammatory response syndrome): Code(s): R65.10 - Systemic inflammatory response syndrome (SIRS) of non-infectious origin without acute organ dysfunction Status: Acute (2) Fever: Qualifiers: Fever type: unspecified Qualified Code(s): R50.9 - Fever, unspecified Code(s): R50.9 - Fever, unspecified Status: Acute (3) Diabetes mellitus type 2 in obese: Code(s): E11.69 - Type 2 diabetes mellitus with other specified complication; E66.9 - Obesity, unspecified Status: Acute DS: Summary Hospital Course Reason for hospitalization: Sirs, Febrile illness Hospital Course: This is a 54 year old male that was admitted with Sirs He has a PMH significant for DMII, HTN, Chronic Pain, Anxiety, COPD, Cirrhosis of the Liver. On presentation patient was hypertensive, Pancytopenia with fever. , tachycardic and meeting criteria for SIRS. Patient was treated with IV fluids and IV antibiotics, leading to resolution of his symptoms, At no point during hospitalization did the patient report or exhibit shortness of breath. A chest X-ray revealed persistent mild to moderate wall thickening of the ascending colon which may suggest colitis. Additional finding included splenomegaly, sandra esophageal varices, small ascites likely related to liver disease mild cardiomyopathy, mild cardiomegaly, and a small pericardial effusion. The patient reports feeling well and is eating and drinking without difficulties. Patient has remained afebrile but remain pancytopenia. In the emergency room he had 1 blood culture come back positive for staphylococcus epidermidis that is susceptible to Levaquin. The second blood culture was negative. We have repeated another set of blood cultures and on discharge they are currently negative. Patient needs to follow up with his PCP on his pancytopenia and quit drinking for his Cirrosihis and will need to be schedule with GI to follow up on these issures. Time Spent with Patient Time attestation: Total time spent providing and/or coordinating discharge services: Exam Const: General: healthy appearing and well nourished Nutritional Appearance: well nourished Orientation/consciousness: patient oriented x3 HENMT: Head: normal to inspection Ears: external ears normal Face/Nose/Sinus: Normal external nose present Eyes: Conjunctivae: conjunctivae normal Pupils: Equal, round and reactive pupils present EOM: EOMs intact bilaterally Neck: Neck: normal visual inspection and no meningeal signs Chest: Chest palpation & inspection: normal inspection of the chest Resp: Effort & Inspection: normal respiratory effort and not labored Auscultation: clear to auscultation bilaterally and no crackles Cardio: Rate: regular rate Rhythm: regular rhythm Heart sounds: no murmurs GI: Inspection: non-distended Auscultation: normal bowel sounds : General: Yes bladder normal to palpation and Yes no CVA tenderness Back/Spine/Pelvis: Back: no CVA tenderness Skin: General skin exam: normal color Rashes: no rashes Wounds: no wounds Neuro: General: patient oriented x3, moves all extremities and no meningeal signs Cranial nerves: Yes Equal, round and reactive pupils present Other: Asterixis Extrem: General: normal to inspection Psych: Mental Status: mental status grossly normal Affect: normal affect and Anxious affect present Attitude: cooperative DS: Data Data Completed and Pending Labs on day of discharge: Labs from last 24 hours 01/24/25 01/24/25 01/23/25 08:33 05:34 21:59 WBC 2.0 L RBC 4.31 L Hgb 10.8 L Hct 35.1 L MCV 81.4 MCH 25.1 L MCHC 30.8 L RDW 16.6 H Plt Count 29 L MPV Not Reportable Immature Gran % (Auto) Not Reportable Neut % (Auto) Not Reportable Lymph % (Auto) Not Reportable Yell % (Auto) Not Reportable Eos % (Auto) Not Reportable Baso % (Auto) Not Reportable Lymph # (Auto) Not Reportable Yell # (Auto) Not Reportable Eos # (Auto) Not Reportable Baso # (Auto) Not Reportable Abs Immat Gran (auto) Not Reportable Absolute Neuts (auto) Not Reportable Absolute Nucleated RBC Not Reportable Neutrophils % (Manual) 76 H Band Neutrophils % 0 Lymphocytes % (Manual) 14 L Monocytes % (Manual) 8 Eosinophils % (Manual) 2 Basophils % (Manual) 0 Nucleated RBC % Not Reportable Abs Neuts (Manual) 1.52 Abs Lymphs (Manual) 0.28 L Abs Monocytes (Manual) 0.16 Absolute Eos (Manual) 0.04 Abs Basophils (Manual) 0.00 Platelet Estimate Decreased % Immature Plt Fraction 9.3 H Schistocytes Not Reportable Sodium 141 Potassium 4.2 Chloride 109 H Carbon Dioxide 26 Anion Gap 6 BUN 15 Creatinine 0.85 Estim Creat Clear Calc 98 Estimated GFR > 60 Glucose 162 H POC Capillary Glucose 162 H 207 H Calculated Osmolality 296 H Calcium 8.0 L Total Bilirubin 1.5 H AST 18 ALT 10 Alkaline Phosphatase 97 Total Protein 5.6 L Albumin 2.8 L 01/23/25 01/23/25 01/23/25 17:02 14:59 12:00 WBC 3.9 L RBC 4.27 L Hgb 10.8 L Hct 34.7 L MCV 81.3 MCH 25.3 L MCHC 31.1 L RDW 16.5 H Plt Count 36 L MPV Not Reportable Immature Gran % (Auto) Neut % (Auto) Lymph % (Auto) Yell % (Auto) Eos % (Auto) Baso % (Auto) Lymph # (Auto) Yell # (Auto) Eos # (Auto) Baso # (Auto) Abs Immat Gran (auto) Absolute Neuts (auto) Absolute Nucleated RBC Neutrophils % (Manual) Band Neutrophils % Lymphocytes % (Manual) Monocytes % (Manual) Eosinophils % (Manual) Basophils % (Manual) Nucleated RBC % Abs Neuts (Manual) Abs Lymphs (Manual) Abs Monocytes (Manual) Absolute Eos (Manual) Abs Basophils (Manual) Platelet Estimate % Immature Plt Fraction 7.8 H Schistocytes Sodium 141 Potassium 4.7 Chloride 109 H Carbon Dioxide 24 Anion Gap 8 BUN 16 Creatinine 1.09 Estim Creat Clear Calc 77 Estimated GFR > 60 Glucose 321 H POC Capillary Glucose 258 H 396 H Calculated Osmolality 305 H Calcium 8.0 L Total Bilirubin AST ALT Alkaline Phosphatase Total Protein Albumin Discharge Plan Discharge Attending physician on discharge: Julian Ervin Consulting providers: Leticia Gandhi; Tono Forrest Joseph A.; Frohnert, Paul Discharging Clinician: Leticia Gandhi Anticipated Discharge Date/Time: 01/24/25 09:25 Patient Disposition: Home Activity: may shower Diet: diabetic Wound Care Instructions: follow printed instructions Discharge Instructions: Please take medication as prescribed and follow up with your primary care provider in 7-10 bussin day Patient Instructions: Antibiotic Form, Levofloxacin (By mouth), Fever in Adults (ED), Sepsis (DC) Patient Language: Lithuanian Stand Alone Forms: General Discharge Information Follow-up/Referrals: Librado,Braydon Syed, PA [Primary Care Provider] Discharge Medications: New levofloxacin 500 mg tablet 500 mg PO DAILY Qty: 3 0RF Continued albuterol sulfate 90 mcg/actuation HFA aerosol inhaler 2 puff INHALATION Q8-10H PRN (Reason: Wheezing) alprazolam 1 mg tablet 0.5 mg PO TID PRN (Reason: Anxiety) ondansetron HCl 4 mg tablet 4 mg PO BID PRN (Reason: Nausea) (DME) OneTouch Ultra Test Strip MISCELLANEOUS hydrocodone-acetaminophen 10-325 mg tablet 10 - 325 tablet PO DAILY insulin lispro [Humalog KwikPen Insulin] 100 unit/mL insulin pen 100 unit SUBCUT DIRECTED (DME) pen needle, diabetic [TRUEplus Pen Needle] 31 gauge x 5/16 needle MISCELLANEOUS lactulose [Enulose] 10 gram/15 mL solution 10 g PO DAILY pregabalin 200 mg capsule 200 mg PO DAILY (DME) Dex[employer] G7 Sensor Device MISCELLANEOUS Trulicity 0.75 mg/0.5 mL pen injector 0.75 mg SUBCUT DAILY pregabalin 100 mg capsule 100 mg PO HS omeprazole 20 mg capsule,delayed release(DR/EC) 20 mg PO BID Qty: 60 0RF Discontinued carvedilol 3.125 mg tablet 3.125 mg PO DAILY No Action clindamycin HCl [Cleocin HCl] 300 mg capsule 300 mg PO TID 7 Days Qty: 21 0RF Date of admission: 01/23/25 08:23 Primary Care Provider: Librado,Braydon Syed Admitting Provider: Julian Ervin Attending physician on admission: Julian Ervin Condition: Stable
[2025-01-24] MEDS: PREGABALIN (*CRX) 100 MG CAPSULE 200 MG PO (09:41)
[2025-01-24] MEDS: GABAPENTIN 100 MG CAPSULE 200 MG PO (09:42)
[2025-01-24] MEDS: PANTOPRAZOLE 40 MG TABLET PO (09:42)
--- NOTE | 2025-01-24 10:28 | PC.NURSE ---
Patient discharge home today all instructions, medication instructions given, pharmacy confirmed for transmission. Patient and significant other voiced understanding. Patient request to ambulated out of building to private vehicle to home, No complaints of pain or distress noted.
--- NOTE | 2025-01-25 12:29 | PC.NURSE ---
Discharge call back complete, advised dr torres called him in regards to his blood culture and told to go to ER to make sure doesn't need a change. No other questions
== END 2025-01-24 10:05 | disposition home or self-care (01) ==
LOC: CHSED 07:13 → CHS2ND 08:30
PROVIDERS: Emergency Medicine; Nurse Practitioner Family; Admitting Provider Internal Medicine; Emergency Provider Family Medicine; PCP Physician Assistant; Visit Provider Internal Medicine
DX: R50.9 Fever, unspecified (principal); R65.10 Systemic inflammatory response syndrome (SIRS) of non-infectious origin without acute organ dysfunction; E11.9 Type 2 diabetes mellitus without complications; M54.9 Dorsalgia, unspecified; G89.29 Other chronic pain; F41.9 Anxiety disorder, unspecified; K75.81 Nonalcoholic steatohepatitis (NASH); K74.60 Unspecified cirrhosis of liver; K21.9 Gastro-esophageal reflux disease without esophagitis; Z87.891 Personal history of nicotine dependence; Z20.822 Contact with and (suspected) exposure to COVID-19
CPT/HCPCS: 36415; 71045; 71250; 74176; 80048; 80053; 81001; 82140; 82948; 83605; 83880; 84484; 85025; 85027; 85055; 87040; 87186; 87637; 93005; 96361; 96365; 96366; 96375; 99285; A9270; G0378; J0692; J1815; J2405; J3360; J7030

== ENCOUNTER 2025-01-25 12:36 | Emergency (ER) | payer OTHER, SELFPAY ==
[2025-01-25 12:38] VITALS: BP 159/91; PULSE 75; RESP 18; TEMP 36.9; O2SAT 99
--- OUTSIDE RECORDS SUMMARY | 2025-01-25 12:44 | XMS_ITS | Encounter Summary ---
Author Organization [facility] Address [facility] [facility] [place] [address] Care Team Providers Care Studio Engineer Name Role Phone Braydon Pavon Primary Care Provider [phone] Nikolay Lancaster MD Primary Care Provider [phone] Braydon Pavon Primary Care Provider [phone] Reason for Visit * Reason Onset Date Comments MEDICATION REFILL 09/08/2018 Encounter Details Date Type Department Care Team (Late st Contact Info) Description 09/08/2018 Refill [facility] [address] 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 Gender Identity Not on file Sexual Orientation Not on file documented as of this encounter Plan of Treatment Not on file documented as of this encounter Visit Diagnoses Not on filedocumented in this encounter Additional Health Concerns Infection Onset Date Last Indicated Resolved Time COVID-19 Under Investigation 06/08/2024 06/08/2024 06/08/2024 4:31 PM DOOR OPENER Influenza A or B Comment:OSH result 06/08/2024 06/09/2024 06/15/2024 4:[address] documented as of this encounter Care Teams Studio Engineer Relationship Specialty Start Date End Date Braydon Pavon PA [address] [place] [address] PCP - General Physician Paperhanger Pipe 05/19/18 10/03/18 Nikolay Lancaster MD [address] [place] [address] PCP - General 10/04/18 07/13/23 Braydon Pavon PA [address] [place] [address] PCP - General Physician Paperhanger Pipe 07/14/23 documented as of this encounter
--- OUTSIDE RECORDS SUMMARY | 2025-01-25 12:44 | XMS_ITS | Encounter Summary ---
Author Organization [facility] Healthcare Address [address] [place] [address] Care Team Providers Care Curriculum Specialist Name Role Phone Braydon Pavon Primary Care Provider [phone] Nikolay Lancaster MD Unavailable [phone] Simon Lundberg MD Primary Care Provider [phone] Nacho Rodriguez MD Unavailable [phone] Elian Gross MD Unavailable Braydon Pavon Primary Care Provider [phone] Encounter Details Date Type Department Care Team (Late st Contact Info) Description 09/14/2020 Telephone [facility] [address] [place], [place] [id number] Trice Aldana, RT Social History Tobacco Use [...] on file 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 Gender Identity Male 10/29/2020 12:37 PM CDT Sexual Orientation Straight 10/29/2020 12 :37 PM CDT documented as of this encounter Plan of Treatment Not on file documented as of this encounter Visit Diagnoses Not on filedocumented in this encounter Care Teams Curriculum Specialist Relationship Specialty Start Date End Date Braydon Pavon PA [address] [place] [address] PCP - General Family Practice 05/09/20 05/19/21 Simon Lundberg MD [address] [place] [address] PCP - General Family Medicine 05/20/21 08/22/21 Braydon Pavon PA [address] [place] [address] PCP - General 08/23/21 Nikolay Lancaster MD [address] [place] [address] 05/09/20 05/19/21 [place] [address] [address] [facility] [address] [address] Consulting Physician Endocrinology 05/20/21 [place] [address] [address] [facility] [address] [address] Consulting Physician Internal Medicine 05/20/21 documented as of this encounter
--- OUTSIDE RECORDS SUMMARY | 2025-01-25 12:44 | XMS_ITS | Clinical Summary ---
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 Use to [...] 05/20/2021 Assessment & Plan (05/22/2021 3:58 PM CLINICAL SERVICES PROFESSIONAL): A initial well visit to establish care [...] unless otherwise indicated. Need follow-up arranged with pneudraulic systems mechanic, pest control worker helper Planning on referral to neckties painter Will need to check in to the tips follow-up Labs as ordered today, I will direct the A1 c to his pest control worker helper's office. Continuing the current regimen for now. Blood pressure is controlled at this time. We may need to try to get the stress test done as well. Screen for colon cancer 03/01/2021 Overview (03/01/2021): Added automatically from request for surgery [id number] Diabetic neuropathy associat ed with type 2 diabetes mellitus 10/29/2020 Assessment & Plan (10/29/2020 4:23 PM CDT): Chronic, worsening Start, gabapentin therapy Work on better diabetic control Vitamin D deficiency 10/29/2020 Assessment & Plan (10/29/2020 4:23 PM CDT): Check labs and based on that for the plans Bacterial endocarditis 05/14/2020 Assessment & Plan (05/14/2020 11:09 AM CLINICAL SERVICES PROFESSIONAL): Unfortunately the patient's records from [facility] are not available for my review. We [...] 05/14/2020 Assessment & Plan (05/14/2020 11:11 AM CLINICAL SERVICES PROFESSIONAL): The patient's dyspnea on exertion is likely [...] - follow up in 6 weeks with VOLUNTEER SERVICES SUPERVISOR Chelsea Driscoll ( to discuss about insulin [...] resume home regimen and follow-up with home pest control worker helper MATHEUS pain 10/11/2017 Morbid obesity 12/09/2016 TRACY [...] Description 01/12/2025 1:15 PM CDT Office Visit [facility] Surgery [address] [place] [address] Medical Office Building [address] [place] [phone] Nabil Vang MD Biliary colic (Primary Dx) 01/06/2025 Orders Only [facility] Scanning, Provider 01/05/2025 Documentation [facility] Gastroenterology [address] 12th [place] [address] [place] [address] Sean Rodas RN 12/26/2024 3:04 PM CDT - 12/26/2024 11:59 PM CDT Hospital Encounter [facility] [address] [place] [address] Discharge Disposition: Discharge to home or self care 12/19/2024 Telephone [facility] ([facility]) - [facility] Minimally Invasive Surgery [address] [place] [address] Medicine 12th Floor, [place] [phone] Rina Edmondson MD Medical Question/Miscellane ous 12/14/2024 Hospital Encounter [facility] Operating Room [address] [place] [address] Valeriano Torres MD 12/13/2024 2:22 PM CDT - 12/14/2024 11:51 AM CDT Emergency [facility] Emergency Department [address] [place] [address] Raffaele Mariee MD Char, MD Melissa Agustin Adeel Shahid, MD Cohn, MD Sherrie Vivar, Nabil Ken 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); Biliary dyskinesia; Right upper quadrant abdominal pain; Diabetes mellitus type 2 with complications (HCC); S/P TIPS (transjugular intrahepatic portosystemic shunt); Gallstones; Thrombocytopenia; Lymphopenia Discharge Disposition: Left Against Medical Advice 12/07/2024 Telephone [facility] Gastroenterology [address]th [place] [address] [place] [address] Adriane Pearce from Last 3 Months Immunizations Immunization Administration Dates Next Due Hep A / Hep B 09/10/2015 Hep B Vaccine 11/09/2015 Surgical History Surgery Date Site/Laterality Comments TIPS INITIAL 11/23/2015 N/A ESOPHAGEAL VARICE LIGATION COLONOSCOPY TIPS REVISION 01/10/2021 N/A Medical History Medical History Date Comments Gallbladder calculus Heart murmur GAVE (gastric antral vascular ectasia) DM type 2 (diabetes mellitus, type 2) dx 2011 Hepatic encephalopathy (HCC) 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 Mild tricuspid regurgitation ECH O can be [...] file Legal Sex Male 2:52 PM CLINICAL SERVICES PROFESSIONAL Gender Identity Male 10/29/2020 12:37 PM CDT [...] 0706/2023, 11/23/2023, Additional history exists Covid-19 Vaccine ( - 2024-2 6 season) 2025 12/29/2020, 12/08/2020 Influenza Vaccine (#1) 2025 Lipid Panel 12/14/2025 12/14/2024, 02/0 10/2024, 05/20/2021, Additional history exists eGFR 12/14/2025 12/14/2024, 12/02, 06/02/2024, Additional history exists Colon Cancer Screening-Colonoscopy 12/17/20302020 Hepatitis C Screening Completed 08/23/2015 Medical Devices Implanted Type Area Environmental Intern Device Identifier Shelf Expiration Date Model / Serial / Lot [employer] Peripheral Vascular [id number] Lifestar 14mm 60mm 80cm Stent Biliary - [id number] Implanted:Qty: 1 on 01/10/[address] [facility] [employer] 09/15/2023 [id number] / / [id number] Procedures Procedure Name Priority Date/Time Associated Diagnosis [...] CREATININE RATIO, URINE Routine 05/20/2021 9:36 AM CLINICAL SERVICES PROFESSIONAL Diabetic neuropathy associated with type 2 diabetes mellitus (HCC) COLONOSCOPY 12/17/2020 10:24 AM CDT SERUM HEPATITIS PANEL Routine 08/23/2015 5:23 PM CDT from Last 3 Months or Most Recently Relevant to Health Maintenance Results * SCAN - RADIOLOGY/IMAGING (01/06/2025) Anatomical Region Laterality Modality Other Provider Scanning Final Result * CT Body Outside Reference (12/26/2024 3:04 PM CDT) Impressions [facility] - 12/26/2024 3:04 PM CDT These images are for Reference purposes only and have not been reviewed by [facility] Radiology. There will be no report generated by a [facility] Radiologist. Narrative [facility]_P[facility] - 12/26/2024 3:04 PM CDT EXAMINATION: Images For Reference Purposes Only Nabil Vang MD IMG CT PROCEDURES Fi nal Result [facility] * Immature platelet fraction (12/14/2024 9:12 AM CDT) Pathologist [facility] IPF 9.5 1.6 - 10.1 % Blood 12/14/2024 9:12 AM CDT 12/14/2024 9:28 AM CDT Nabil Balderas Jr., MD LAB BLOOD ORDERABLES F inal Result Performing Organization Address City/[facility]/ZIP Co de Phone Number [facility] [address] [facility] Department [place] [address] * eGFR (12/14/2024 9:12 AM CDT) Pathologist [facility] eGFR >90 >=60 mL/min/1. 73 m2 [...] MD LAB BLOOD ORDERABLES F inal Result [facility] [address] [facility] Department [place] [address] * (ABNORMAL) Differential, auto (12/14/2024 9:12 AM CDT) Pathologist [facility] Neutrophil abs 1.68 1.50 - 6.50 K/cumm Imm gran abs 0.01 0.00 - 0.10 K/cumm [facility] Lymphocyte abs 0.16(L) 0.80 - 3.30 K/cumm [facility] Monocyte abs 0.03(L) 0.20 - 0.80 K/cumm [facility] Eosinophil abs 0.00 0.00 - 0.50 K/cumm [facility] Basophil abs 0.01 0.00 - 0.10 K/cumm [facility] Neutrophil pct 88.9 % [facility] Comment: Interpretive Data Percent cell count reference ranges are not reported, since discordance with absolute values may lead to misinterpretation of CBC data. Current Interpretive Data was last revised on 2017. Imm gran pct 0.5 % [facility] Comment: Interpretive Data Percent cell count reference ranges are not reported, since discordance with absolute values may lead to misinterpretation of CBC data. Current Interpretive Data was last revised on 2017. Lymphocyte pct 8.5 % [facility] Comment: Interpretive Data Percent cell count reference ranges are not reported, since discordance with absolute values may lead to misinterpretation of CBC data. Current Interpretive Data was last revised on 2017. Monocyte pct 1.6 % [facility] Comment: Interpretive Data Percent cell count reference ranges are not reported, since discordance with absolute values may lead to misinterpretation of CBC data. Current Interpretive Data was last revised on 2017. Eosinophil pct 0.0 % [facility] Comment: Interpretive Data Percent cell count reference ranges are not reported, since discordance with absolute values may lead to misinterpretation of CBC data. Current Interpretive Data was last revised on 2017. Basophil pct 0.5 % [facility] Comment: Interpretive Data Percent cell count reference ranges are not reported, since discordance with absolute values may lead to misinterpretation of CBC data. Current Interpretive Data was last revised on 2017. Blood 12/14/2024 9:12 AM CDT 12/14/2024 9:22 AM CDT us Nabil Balderas Jr., MD LAB BLOOD ORDERABLES F inal Result [facility] [address] [facility] Department [place] [address] * (ABNORMAL) CBC with auto differential (12/14/2024 9:12 AM CDT) Pathologist [facility] WBC 1.84(L) 3.80 - 9.90 K/cumm Hgb 12.5(L) 13.0 - 17.5 g/dL [facility] Hct 39.1 38.9 - 50.3 % [facility] Plt 47(C) 150 - 400 K/cumm [facility] Comment:Platelet count confi rmed by additional testing. Critical platelet count threshold determined by patient location: Outpatient:<50 K/cumm , Inpatient adults:<20 K/cumm , Inpatient pediatric:<25 K/cumm, BMT service:<10 K/cumm MPV Not Measured 9.1 - 12.3 fL [facility] RBC 5.09 4.30 - 5.80 M/cumm [facility] MCV 76.8(L) 81.3 - 96.4 fL [facility] MCH 24.6(L) 27.1 - 33.3 pg [facility] MCHC 32.0(L) 32.3 - 35.7 g/dL [facility] RDW CV 15.2(H) 11.1 - 14.9 % [facility] RDW SD 41.5 35.7 - 48.1 fL [facility] NRBC abs 0.00 0.00 - 0.01 K/cumm [facility] Blood 12/14/2024 9:12 AM CDT 12/14/2024 9:22 AM CDT Nabil Balderas Jr., MD LAB BLOOD ORDERABLES F inal Result [facility] [address] [facility] Department [place] [address] * (ABNORMAL) Lipid panel (12/14/2024 9:12 AM [...] revised on 2017. Triglycerides 86 <=149 mg/dL [facility] Comment: Interpretive Data Ages < or [...] revised on 2017. HDL 21(L) >=40 mg/dL [facility] Comment: Interpretive Data Ages < or [...] on 2017. LDL, calculated 64 <=129 mg/dL [facility] Comment: Interpretive Data Ages < or [...] revised on 2023. Non-HDL Cholesterol 81 mg/dL [facility] Comment: Interpretive Data Ages < or [...] last revised on 2017. Chol/HDL ratio 5 [facility] Blood 12/14/2024 9:12 AM CDT 12/14/2024 9:48 AM CDT Narrative [facility] - 12/14/2024 4:15 PM CDT reflex us Nabil Balderas Jr., MD LAB BLOOD ORDERABLES F inal Result [facility] [address] [facility] Department [place] [address] * (ABNORMAL) Comprehensive metabolic panel (12/14/2024 9:12 AM CDT) Sodium 136 135 - 145 mmol/L Potassium, pl 4.9 3.3 - 4.9 mmol/L [facility] Chloride 102 97 - 110 mmol/L [facility] CO2 24 22 - 32 mmol/L [facility] Anion gap 10 2 - 15 mmol/L [facility] BUN 17 6 - 25 mg/dL [facility] Creatinine 0.83 0.80 - 1.30 mg/dL [facility] Glucose 307(H) 70 - 199 mg/dL [facility] Comment: Interpretive Data Fasting glucose >/= [...] 2022. Calcium 8.6 8.5 - 10.3 mg/dL [facility] Bilirubin, total 1.3(H) 0.1 - 1.2 mg/dL [facility] Protein, pl 6.8 6.5 - 8.5 g/dL [facility] Albumin 3.3(L) 3.5 - 5.0 g/dL [facility] Alk phos 142(H) 40 - 130 Units/L [facility] ALT 10 7 - 55 Units/L [facility] AST 18 10 - 50 Units/L [facility] Blood 12/14/2024 9:12 AM CDT 12/14/2024 9:22 AM CDT us Nabil Balderas Jr., MD LAB BLOOD ORDERABLES F inal Result Performing Organization Address [facility] Co de Phone Number [facility] Department [place] [address] * (ABNORMAL) POCT glucose (12/14/2024 7:56 AM CDT) Glucose, POC 272(H) 70 - 199 mg/dL Blood 12/14/2024 7:56 AM CDT 12/14/2024 7:56 AM CDT us Nabil Balderas Jr., MD LAB POCT ORDERABLES - DEVICE Final Result Performing Organization Address [facility] Co de Phone Number [facility] Department [place] [address] * (ABNORMAL) POCT glucose (12/14/2024 2:32 AM CDT) Glucose, POC 283(H) 70 - 199 mg/dL Blood 12/14/2024 2:32 AM CDT 12/14/2024 2:32 AM CDT us Grey Amanda MD LAB POCT ORDERABLES - NBA CE Final Result Performing Organization Address [facility] Co de Phone Number [facility] Department [place] [address] * POCT glucose (12/13/2024 10:38 PM CDT) Glucose, POC 197 70 - 199 mg/dL Blood 12/13/2024 10:3 8 PM CDT 12/13/2024 10:38 PM CDT us Valeriano Torres MD LAB POCT ORDERABLES - DEVIC E Final Result Performing Organization Address [facility] Co de Phone Number [facility] [place] [address] * POCT glucose (12/13/2024 5:17 PM CDT) Glucose, POC 130 70 - 199 mg/dL Blood 12/13/2024 5:17 PM CDT 12/13/2024 5:17 PM CDT us Thai Mejia MD LAB POCT ORDERABLES - DEVICE Final Result Performing Organization Address [facility] de Phone Number [facility] Department [place] [address] * US RUQ (12/13/2024 4:00 PM CDT) [...] MD LAB BLOOD ORDERABLES Anastasiya l Result [facility] [address] [facility] Department of Laboratories [place], [place] [id number] * (ABNORMAL) Differential, auto (12/13/2024 2:37 PM CDT) Neutrophil abs 3.11 1.50 - 6.50 K/cumm Imm gran abs 0.02 0.00 - 0.10 K/cumm [facility] Lymphocyte abs 0.40(L) 0.80 - 3.30 K/cumm [facility] Monocyte abs 0.36 0.20 - 0.80 K/cumm [facility] Eosinophil abs 0.09 0.00 - 0.50 K/cumm [facility] Basophil abs 0.04 0.00 - 0.10 K/cumm [facility] Neutrophil pct 77.3 % [facility] Comment: Interpretive Data Percent cell count reference ranges are not reported, since discordance with absolute values may lead to misinterpretation of CBC data. Current Interpretive Data was last revised on 2017. Imm gran pct 0.5 % [facility] Comment: Interpretive Data Percent cell count reference ranges are not reported, since discordance with absolute values may lead to misinterpretation of CBC data. Current Interpretive Data was last revised on 2017. Lymphocyte pct 10.0 % [facility] Comment: Interpretive Data Percent cell count reference ranges are not reported, since discordance with absolute values may lead to misinterpretation of CBC data. Current Interpretive Data was last revised on 2017. Monocyte pct 9.0 % [facility] Comment: Interpretive Data Percent cell count reference ranges are not reported, since discordance with absolute values may lead to misinterpretation of CBC data. Current Interpretive Data was last revised on 2017. Eosinophil pct 2.2 % [facility] Comment: Interpretive Data Percent cell count reference ranges are not reported, since discordance with absolute values may lead to misinterpretation of CBC data. Current Interpretive Data was last revised on 2017. Basophil pct 1.0 % [facility] Comment: Interpretive Data Percent cell count reference ranges are not reported, since discordance with absolute values may lead to misinterpretation of CBC data. Current Interpretive Data was last revised on 2017. Blood 12/13/2024 2:37 PM CDT 12/13/2024 2:55 PM CDT us Raffaele Mariee MD LAB BLOOD ORDERABLES Anastasiya enciso Result [facility] Department [place] [address] * (ABNORMAL) CBC with auto differential (12/13/2024 2:37 PM CDT) [facility] WBC 4.02 3.80 - 9.90 K/cumm Hgb 13.3 13.0 - 17.5 g/dL [facility] Hct 41.3 38.9 - 50.3 % [facility] Plt 56(L) 150 - 400 K/cumm [facility] Comment:No clot detected in sample. MPV Not Measured 9.1 - 12.3 fL [facility] RBC 5.39 4.30 - 5.80 M/cumm [facility] MCV 76.6(L) 81.3 - 96.4 fL [facility] MCH 24.7(L) 27.1 - 33.3 pg [facility] MCHC 32.2(L) 32.3 - 35.7 g/dL [facility] RDW CV 15.8(H) 11.1 - 14.9 % [facility] RDW SD 42.3 35.7 - 48.1 fL [facility] NRBC abs 0.00 0.00 - 0.01 K/cumm [facility] Blood 12/13/2024 2:37 PM CDT 12/13/2024 2:55 PM CDT Raffaele Mariee MD LAB BLOOD ORDERABLES Anastasiya l Result [facility] Department [place] [address] * aPTT (12/13/2024 2:37 PM CDT) Pathologist [facility] aPTT 31 26 - 38 sec Comment: Interpretive Data Heparin therapeutic range: 66.0 - 100.0 seconds. Range based on correlation with therapeutic heparin activity range of 0.3 - 0.7 Units/mL. Current interpretive data was last revised on 2023. Blood 12/13/2024 2:37 PM CDT 12/13/2024 2:47 PM CDT Raffaele Mariee MD LAB BLOOD ORDERABLES Anastasiya l Result Performing Organization Address City/[facility]/ZIP Co de Phone Number [facility] [place] [address] * (ABNORMAL) Protime-INR (12/13/2024 2:37 PM CDT) PT 14.3(H) 10.2 - 13.5 sec INR 1.27(H) 0.90 - 1.20 [facility] Comment: Interpretive data Oral anticoagulant therapeutic ranges: Venous thromboembolism prophylaxis or treatment: 2.0-3.0 CARDIOLOGY Standard range: 2.0-3.0 High-intensity range: 2.5-3.5 Refer to indication-specific guidelines for appropriate target ranges for prosthetic heart valve replacement. Current interpretive data was last revised on 2019. Blood 12/13/2024 2:37 PM CDT 12/13/2024 2:47 PM CDT Raffaele Mariee MD LAB BLOOD ORDERABLES Anastasiya l Result Performing Organization Address [facility] Co de Phone Number [facility] [place] [address] * Type and screen (12/13/2024 2:37 PM CDT) Steve, indirect Negative ABO Rh A Positive [facility] Blood 12/13/2024 2:37 PM CDT 12/13/2024 2:50 PM CDT Narrative [facility] - 12/13/2024 3:47 PM CDT Has the patient had Daratumumab or Isatuximab in the past 6 months?->Unknown Raffaele Mariee MD LAB BLOOD BANK TEST ORDER SELINA Final Result Performing Organization Address City/[facility] Co de Phone Number [facility] [place] [address] * Lipase (12/13/2024 2:37 PM CDT) Lipase 11 10 - 99 Units/L Blood 12/13/2024 2:37 PM CDT 12/13/2024 2:55 PM CDT Raffaele Mariee MD LAB BLOOD ORDERABLES Anastasiya l Result [facility] Department [place] [address] * (ABNORMAL) Comprehensive metabolic panel (12/13/2024 2:37 PM CDT) Pathologist [facility] Sodium 139 135 - 145 mmol/L Potassium, pl 5.0(H) 3.3 - 4.9 mmol/L [facility] Comment:Hemolyzed; Potassium value may be falsely elevated by as much as 0.6-1.0 mmol/L. Suggest redraw and reanalysis. Chloride 105 97 - 110 mmol/L [facility] CO2 24 22 - 32 mmol/L [facility] Anion gap 10 2 - 15 mmol/L [facility] BUN 13 6 - 25 mg/dL [facility] Creatinine 0.84 0.80 - 1.30 mg/dL [facility] Glucose 192 70 - 199 mg/dL [facility] Comment: Interpretive Data Fasting glucose >/= [...] 2022. Calcium 8.8 8.5 - 10.3 mg/dL [facility] Bilirubin, total 1.6(H) 0.1 - 1.2 mg/dL [facility] Protein, pl 7.5 6.5 - 8.5 g/dL [facility] Albumin 3.4(L) 3.5 - 5.0 g/dL [facility] Alk phos 151(H) 40 - 130 Units/L [facility] ALT 10 7 - 55 Units/L [facility] AST 45 10 - 50 Units/L [facility] Comment:Hemolyzed; result ma y be falsely elevated Blood 12/13/2024 2:37 PM CDT 12/13/2024 2:55 PM CDT us Raffaele Mariee MD LAB BLOOD ORDERABLES Anastasiya l Result [facility] [place] [address] * POCT glucose (12/13/2024 2:12 PM CDT) Glucose, POC 179 70 - 199 mg/dL Blood 12/13/2024 2:12 PM CDT 12/13/2024 2:12 PM CDT us Notinfile Unknown LAB POCT ORDERABLES - DEVICE F inal Result Performing Organization Address [facility] Co de Phone Number [facility] [place] [address] * (ABNORMAL) Hemoglobin A1c (11/23/2023 8:40 AM CDT) Hgb A1C 10.0(H) 4.0 - 5.6 % Estimated Average Glucose 240 mg/dL [facility] Comment: The ADA recommends reporting an [...] BLOOD ORDERABLES Fi nal Result [facility] Department [place] [address] * Albumin Creatinine Ratio, Urine (05/20/2021 9:36 AM CLINICAL SERVICES PROFESSIONAL) Albumin Ur <12.0 mg/L [facility] Comment: Interpretive Data No reference range established. Current interpretive data was last revised 2018. Creatinine Ur 47.6 mg/dL [facility] Comment: Interpretive Data No reference range established. Current interpretive data was last revised 2018. Albumin Creatinine Ratio, Ur <25 1 - 29 mg/g [facility] Urine 05/20/2021 9:36 AM CLINICAL SERVICES PROFESSIONAL 05/20/2021 7:41 PM CLINICAL SERVICES PROFESSIONAL us Simon Lundberg MD LAB URINE ORDERABLES Final Result Performing Organization Address City/[facility] Co de Phone Number [facility] [address] [facility] Department [place] [address] * COLONOSCOPY (12/17/2020 10:24 AM CDT) Anatomical Region Laterality Modality Other Narrative Procedure Note Elian Gross MD - 12/17/2020 10:24 AM CDT ENDOSCOPY LAB Patient Name: Camilo Curry Procedure Date: 12/17/2020 10:24 AM Date of : 1970 Admit Type: Outpatient Age: 50 Gender: Male Attending MD: Elian Vivar M.D. Room: [facility] ENDOSCOPY ROOM 02 Note Status: Finalized [...] the physician, the nurse, the anesthesiologist, the multiplex operator and thetechnician in the pre-procedure area [...] The scope was passed under direct vision.The [id number] was introduced through the anusand advanced to the hepatic flexure. The colonoscopywas performed without difficulty. The patient tolerated the procedure well. The quality of the bowel preparation was unsatisfactory. The quality of the bowel preparation was evaluated using the BBPS([place] Bowel Preparation Scale) with scores of: RightColon [...] 12/17/2020 10:24 AM Elian Draper MD ENDOSCOPY FL OCEDURES Final Result * Serum Hepatitis panel (08/23/2015 5:23 PM CDT) HBV surface ag Negative NEG HISTO RICAL RESULTS HCV ab Negative NEG HISTORICAL RESULTS Comment: Interpretive Data If confirmation is required, call Laboratory Customer Service to request sample to be sent to [facility] for Hepatitis C Virus (HCV) RNA Detection and Quantitation by Real-Time Reverse Yacht Builder-PCR (RT-PCR). Current interpretive data was last revised [...] Recently Relevant to Health Maintenance Insurance [facility] AETNA BETTER [facility] Advance Directives For more information, please contact: [phone] * Full Code (Latest Code Status on [...] 9:18 AM 12/17/2020 4:00 PM Care Teams Sba Business Development Officer Relationship Specialty Start Date End Date Braydon Pavon PA [address] [place] [address] PCP - General 08/23/21 [place] [id number] [address] [facility] [address] [place], [place] [id number] Consulting Physician Endocrinology 05/20/21 [place] [address] [address] [facility] [address] [place], [place] [id number] Consulting Physician Internal Medicine 05/20/21
--- OUTSIDE RECORDS SUMMARY | 2025-01-25 12:44 | XMS_ITS | Encounter Summary ---
Author Organization [facility] Healthcare Address [address] [place] [address] Care Team Providers Care Hand Slitter Name Role Phone Braydon Pavon Primary Care Provider [phone] Nikolay Lancaster MD Unavailable [phone] Simon Lundberg MD Primary Care Provider [phone] Nacho Rodriguez MD Unavailable [phone] Elian Gross MD Unavailable Braydon Pavon Primary Care Provider [phone] Encounter Details Date Type Department Care Team (Late st Contact Info) Description 10/05/2020 Telephone [facility] [address] [place], [place] [id number] Trice Aldana, RT Social History Tobacco Use [...] on file Legal Sex Male 2:52 PM DE ICER FINISHER Gender Identity Male 10/29/2020 12:37 PM CDT Sexual Orientation Straight 10/29/2020 12 :37 PM CDT documented as of this encounter Plan of Treatment Not on file documented as of this encounter Visit Diagnoses Not on filedocumented in this encounter Care Teams Hand Slitter Relationship Specialty Start Date End Date Braydon Pavon PA [address] [place] [address] PCP - General Family Practice 05/09/20 05/19/21 Simon Lundberg MD [address] [place] [address] PCP - General Family Medicine 05/20/21 08/22/21 Braydon Pavon PA [address] [place] [address] PCP - General 08/23/21 Nikolay Lancaster MD [address] [place] [address] 05/09/20 05/19/21 [place] [id number] [address] [facility] [address] [address] Consulting Physician Endocrinology 05/20/21 [place] [address] [address] [facility] [address] [address] Consulting Physician Internal Medicine 05/20/21 documented as of this encounter
--- OUTSIDE RECORDS SUMMARY | 2025-01-25 12:44 | XMS_ITS | Clinical Summary ---
Author Organization [facility] Address [address] [facility] Attn: Epic Prelude ADT [place] [address] Care Team Providers Care Senior Financial Consultant Name Role Phone Carlos Mcdonnell DO Primary [...] on file Legal Sex Male 6:23 AM TRANSPORT MEDIC Gender Identity Not on file Sexual Orientation Not on file Last Filed Vital Signs Vital Sign Reading Time Taken Comments Blood Pressure 147/78 06/30/2024 10:10 PM TRANSPORT MEDIC Pulse 89 06/30/2024 10:55 PM TRANSPORT MEDIC Temperature 36.4 C (97.5 F) 06/30/2024 5:45 PM TRANSPORT MEDIC Respiratory Rate 13 06/30/2024 10:55 PM TRANSPORT MEDIC Oxygen Saturation 96% 06/30/2024 10:55 PM TRANSPORT MEDIC Inhaled Oxygen Concentration - - Weight - [...] 01/20/2024, 05/20/2023, 10/27/2018, Additional history exists Insurance [facility] MEDICAID Care Teams Senior Financial Consultant Relationship Specialty Start Date End Date Carlos Mcdonnell DO PCP - General 11/18/07
--- OUTSIDE RECORDS SUMMARY | 2025-01-25 12:44 | XMS_ITS | Clinical Summary ---
Author Organization [facility] Address [address] [place] [address] Phone Care Team Providers Care Zigzagger Name Role Phone Braydon Pavon Kunal NEAL Primary Care Provider [phone] Vikram Mora MD Unavailable Riddhi Bello APRN, CUTTING DEPARTMENT SUPERVISOR Unavailable Andrea Hawkins MD Unavailable [phone] Allergies Active Allergy Reactions Criticality Noted Date [...] route. 1 Active Insulin Pen Needle ([place]) 32G X 4 MM Misc Inject 3 times daily 0 Active traZODone (DESYREL) 100 MG Tablet nightly. 3 Active HYDROcodone-bella taminophen (NORCO) 7.5-325 MG Tablet Take 10 Tablets by mouth three times a week. Active ondansetron (ZOFRAN-ODT) 4 MG TABLET DISPERSIBLE Take 1 Tablet by mouth every 8 hours as needed for Nausea - 1st line. 10 Tablet 4 Active Continuous Blood Gluc Machine Set Up Technician (Dexcom G7 Machine Set Up Technician) Device Check blood glucose before each meal and at bedtime 1 Each 4 Active HYDROcodone-bella taminophen (Warren) 10-325 MG Tablet Take 1 Tablet by [...] Description 10/31/2024 10:30 AM CDT Office Visit [facility] [address] [place] [address] Andrea Hawkins MD Diabetic polyneuropathy associated with [...] on file Legal Sex Male 10:58 AM POULTRY TENDER Gender Identity Not on file Sexual Orientation [...] Visit [facility] [address] [place] [address] Andrea Hawkins MD [address] [place] [address] Health Maintenance Due Date Last Done Comments [...] W/ ESTIMATED GLUCOSE STAT 05/20/2023 10:44 AM POULTRY TENDER from Last 3 Months or Most Recently Relevant to Health Maintenance Results * (ABNORMAL) CBC WITH AUTO DIFFERENTIAL (10/31/2024 11:44 AM CDT) WBC 6.91 4.00 - 12.00 10(3)/mcL 10/31/2024 12:38 PM CDT [facility] RBC 5.79 4.40 - 5.80 10(6)/mcL 10/31/2024 12:38 PM CDT [facility] HEMOGLOBIN (HGB) 15.2 13.0 - 16.5 g/dL 10/31/2024 12:38 PM CDT [facility] HEMATOCRIT (HCT) 47.2 38.0 - 50.0 % 10/31/2024 12:38 PM CDT [facility] MCV 81.5(L) 82.0 - 96.0 fL 10/31/2024 12:38 PM CDT [facility] MCH 26.3 26.0 - 32.0 pg 10/31/2024 12:38 PM CDT [facility] MCHC 32.2 31.0 - 36.0 g/dL 10/31/2024 12:38 PM CDT [facility] PLATELET COUNT 76(L) 140 - 440 10(3)/mcL 10/31/2024 12:38 PM CDT [facility] RDW 13.5 11.8 - 15.5 % 10/31/2024 12:38 PM CDT [facility] MPV 12.2 8.0 - 12.6 fL 10/31/2024 12:38 PM CDT [facility] NEUTROPHILS 79.2(H) 40.0 - 68.0 % 10/31/2024 12:38 PM CDT [facility] LYMPHOCYTES 10.1(L) 19.0 - 49.0 % 10/31/2024 12:38 PM CDT [facility] MONOCYTES 8.0 3.0 - 13.0 % 10/31/2024 12:38 PM CDT [facility] EOSINOPHILS 1.4 0.0 - 8.0 % 10/31/2024 12:38 PM CDT [facility] BASOPHILS 0.7 0.0 - 1.0 % 10/31/2024 12:38 PM CDT [facility] IMMATURE GRANULOCYTE 0.6(H) 0.0 - 0.4 % 10/31/2024 12:38 PM CDT [facility] Comment:Immature Granulocyte s includes Metamyelocytes, Myelocytes, and Promyelocytes. ABSOLUTE NEUTROPHILS 5.47(H) 1.40 - 5.30 10(3)/mcL 10/31/2024 12:38 PM CDT [facility] ABSOLUTE LYMPHOCYTES 0.70(L) 0.90 - 3.30 10(3)/mcL 10/31/2024 12:38 PM CDT [facility] ABSOLUTE MONOCYTES 0.55 0.10 - 0.90 10(3)/[facility] 10/31/2024 12:38 PM CDT [facility] ABSOLUTE EOSINOPHIL 0.10 0.00 - 0.50 10(3)/mcL 10/31/2024 12:38 PM CDT [facility] ABSOLUTE BASOPHILS 0.05 0.00 - 0.10 10(3)/[facility] 10/31/2024 12:38 PM CDT [facility] ABSOLUTE IMMATURE GRANULOCYTE 0.04(H) 0.00 - 0.03 10 (3) mcL. 10/31/2024 12:38 PM CDT [facility] NRBC PER 100 WBC 0 11/01/19 12:38 PM CDT [facility] Blood Venipuncture / Unknown 10/31/2024 11:44 AM CDT 10/31/2024 12:20 PM CDT us Andrea Hawkins MD HEMATOLOGY ORDERABLES Final Result Performing Organization Address City/[facility]/ZIP Co de Phone Number [facility] [address] [place] [address] * VITAMIN B12 (10/31/2024 11:44 AM CDT) VITAMIN B12 504 213 - 816 pg/mL 10/31/2024 2:02 PM CDT [facility] Blood Venipuncture / Unknown 10/31/2024 11:44 AM CDT 10/31/2024 12:20 PM CDT us Andrea Hawkins MD CHEMISTRY ORDERABLES Final R esult Performing Organization Address City/[facility]/RUST Co de Phone Number [facility] [address] [place] [address] * THYROID STIMULATING HORMONE (TSH) (10/31/2024 11:44 AM CDT) TSH 1.180 0.300 - 5.000 mIU/L 10/31/2024 2:03 PM CDT [facility] Blood Venipuncture / Unknown 10/31/2024 11:44 AM CDT 10/31/2024 12:20 PM CDT us Andrea Hawkins MD CHEMISTRY ORDERABLES Final R esult Performing Organization Address City/[facility]/ZIP Co de Phone Number [facility] [address] [place] [address] * FOLIC ACID (FOLATE) (10/31/2024 11:44 AM CDT) FOLATE 11.0 7.0 - 31.4 ng/mL 10/31/2024 2:02 PM CDT [facility] IS THE PATIENT REQUIRED TO BE FASTING? No 10/31/2024 2:02 PM CDT [facility] Blood Venipuncture / Unknown 10/31/2024 11:44 AM CDT 10/31/2024 12:20 PM CDT us Andrea Hawkins MD CHEMISTRY ORDERABLES Final R esult [facility] [address] [place] [address] * (ABNORMAL) CMP (COMPREHENSIVE METABOLIC PANEL) (10/31/2024 11:44 AM CDT) SODIUM 136 136 - 145 mmol/L 10/31/2024 1:57 PM CDT [facility] POTASSIUM 4.6 3.5 - 5.1 mmol/L 10/31/2024 1:57 PM CDT [facility] CHLORIDE 102 98 - 107 mmol/L 10/31/2024 1:57 PM CDT [facility] CO2, VENOUS 25 22 - 30 mmol/L 10/31/2024 1:57 PM CDT [facility] ANION GAP 13.6 <18.0 mmol/L 10/31/2024 1:57 PM CDT [facility] GLUCOSE 325(H) 70 - 99 mg/dL 10/31/2024 1:57 PM CDT [facility] BUN 17 8 - 26 mg/dL 10/31/2024 1:57 PM CDT [facility] CREATININE, BLOOD 1.10 0.70 - 1.30 mg/dL 10/31/2024 1:57 PM CDT [facility] BUN/CREATININE RATIO 15 12 - 20 ratio 10/31/2024 1:57 PM CDT [facility] TOTAL PROTEIN 7.8 6.0 - 8.0 g/dL 10/31/2024 1:57 PM CDT [facility] ALBUMIN 3.9 3.5 - 5.0 g/dL 10/31/2024 1:57 PM CDT [facility] A/G RATIO 1.0 1.0 - 2.2 10/31/2024 1:57 PM CDT [facility] CALCIUM 9.3 8.7 - 10.5 mg/dL 10/31/2024 1:57 PM CDT [facility] T BILI 1.3(H) 0.2 - 1.2 mg/dL 10/31/2024 1:57 PM CDT [facility] SGOT (AST) 21 <43 U/L 10/31/2024 1:57 PM CDT [facility] SGPT (ALT) 11 <56 U/L 10/31/2024 1:57 PM CDT [facility] ALKALINE PHOSPHATASE 96 40 - 150 U/L 10/31/2024 1:57 PM CDT [facility] IS THE PATIENT REQUIRED TO BE FASTING? No 10/31/2024 1:57 PM CDT [facility] GFR, ESTIMATED >60 >=60 10/31/2024 1:57 PM CDT [facility] Comment: Creatinine Clearance is the preferred criteria for selecting drug dose adjustments in renally impaired patients. The GFR is provided as additional pertinent clinical information. GFR is reported in mL/min/1.73 sq m. Calculation based on the Chronic Kidney Disease Epidemiology Collaboration (CKD- EPI) equation refit without adjustment for race. GFR, EST. >60 >=60 025 1:57 PM CDT [facility] GFR, EST. NONAFRICAN >60 >=60 10/31/2024 1:57 PM CDT [facility] Blood Venipuncture / Unknown 10/31/2024 11:44 AM CDT 10/31/2024 12:20 PM CDT us Andrea Hawkins MD CHEMISTRY ORDERABLES Final R esult [facility] [address] [place] [address] * (ABNORMAL) Hemoglobin A1C (05/20/2023 10:44 AM POULTRY TENDER) HGB-A1C 11.6(H) 4.0 - 6.0 % 05/20/2023 12:30 PM POULTRY TENDER [facility] Est Average Glucose 286.2 mg/dL 05/20/2023 12:30 PM POULTRY TENDER [facility] Blood Venipuncture / Unknown 05/20/2023 10:44 AM POULTRY TENDER 05/20/2023 11:01 AM POULTRY TENDER Narrative [facility] - 05/20/2023 12:30 PM POULTRY TENDER HEMOGLOBIN A1C: DIABETIC PATIENTS: WELL-CONTROLLED: 6.2 - 7.0 INTERMEDIATE WELL-CONTROLLED: 7.0 - 9.0 POORLY-CONTROLLED: >9.0 Felicitas Luz APRN, CUTTING DEPARTMENT SUPERVISOR CHEMISTRY ORDERABLES Final Result Performing Organization Address [facility]/RUST Co de Phone Number [facility] [address] [place] [address] from Last 3 Months or Most Recently Relevant to Health Maintenance Insurance [facility] [address] [place] [address] Care Teams Zigzagger Relationship Specialty Start Date End Date Braydon Pavon PAC [address] [place] [address] PCP - General Physician Geospatial Extractor Analysis 06/22/18 Vikram Mora MD [address] [phone] Consulting Physician Endocrinology 05/21/23 Riddhi Bello APRN, CUTTING DEPARTMENT SUPERVISOR [address] [place] [address] Nurse Practitioner Advanced Practice Nurse 02/10/23 Andrea Hawkins MD [address] [place] [phone] Consulting Physician Neurology 10/31/24
--- OUTSIDE RECORDS SUMMARY | 2025-01-25 12:44 | XMS_ITS | Clinical Summary ---
Author Organization [facility] Address [address] [facility] [place] [address] Care Team Providers Care Hat Ironer Name Role Phone Braydon Pavon Primary Care Provider [phone] Source Comments [facility],non-owned Affiliates and Associated Physician Practices is amultiple site organization consisting of ambulatory clinics and hospital sitesin [place], [place], [place] and [place]. This disclosure is being madepursuant to the Care Everywhere program and may not contain all information available regarding this patient. Last updated 18.[facility] Content Allergies Active Allergy Reactions Criticality Noted Date [...] WC - CONFIRMED WITH [facility] [phone], Reason: Provider adjusted, Reported on 06/09/2024 blood [...] dissolve on the tongue Active HYDROcodone-ac etaminophen ([place]) 10-325 MG tablet Take 1 (one) tablet [...] Insulin Regular Human (HUMULIN R U-500 IKPEN [place]) Inject 200 Units subcutaneously 3 times daily [...] care, and heating? Not very hard 06/08/2024 [facility] [place] [facility] Occupat ional Health - Occupational Stress [...] time in the past [address] [facility], were you homeless or living in a senior living (including now)? No 06/08/2024 Sex and Gender Information Value Date Recorded Sex Assigned at Not on file Legal Sex Male 8:18 AM BREAD RACKER Gender Identity Not on file Sexual Orientation Not on file Last Filed Vital Signs Vital Sign Reading Time Taken Comments Blood Pressure 110/69 06/10/2024 3:45 PM BREAD RACKER Pulse 81 06/10/2024 3:45 PM BREAD RACKER Temperature 36.8 C (98.2 F) 06/10/2024 3:45 PM BREAD RACKER Respiratory Rate 19 06/10/2024 3:45 PM BREAD RACKER Oxygen Saturation 94% 06/10/2024 3:45 PM BREAD RACKER Inhaled Oxygen Concentration - - Weight 99.8 kg (220 lb) 06/08/2024 3:47 PM BREAD RACKER Height 170.2 cm (5' 7) 06/08/2024 3:47 PM BREAD RACKER Body Mass Index 34.46 06/08/2024 3:47 PM BREAD RACKER Plan of Treatment Health Maintenance Due Date [...] (CALCIUM TOTAL) AM Draw 06/10/2024 4:45 AM BREAD RACKER HEMOGLOBIN A1C Routine 06/09/2024 1:59 AM BREAD RACKER from Last 3 Months or Most Recently Relevant to Health Maintenance Results * (ABNORMAL) BASIC METABOLIC PANEL (CALCIUM TOTAL) (06/10/2024 4:45 AM BREAD RACKER) Glucose 107(H) 70 - 99 mg/dL 06/10/2024 5:25 AM BREAD RACKER [facility] Sodium 139 136 - 145 mmol/L 06/10/2024 5:25 AM BREAD RACKER [facility] Potassium 3.4(L) 3.5 - 5.1 mmol/L 06/10/2024 5:25 AM BREAD RACKER [facility] Chloride 107 98 - 107 mmol/L 06/10/2024 5:25 AM BREAD RACKER [facility] CO2 22 22 - 29 mmol/L 06/10/2024 5:25 AM BREAD RACKER [facility] Calcium 8.2(L) 8.4 - 10.4 mg/dL 06/10/2024 5:25 AM [facility] Anion Gap 10 6 - 16 mmol/L 06/10/2024 5:25 AM [facility] BUN 15 7 - 26 mg/dL 06/10/2024 5:25 AM [facility] Creatinine 0.70(L) 0.72 - 1.25 mg/dL 06/10/2024 5:25 AM [facility] eGFR by CKD-EPI >90 >=90 mL/min/1.7 3 m2 06/10/2024 5:25 AM [facility] Blood BLOOD SPECIMEN / Unknown Venipuncture / Unknown 06/10/2024 4:45 AM BREAD RACKER 06/10/2024 5:01 AM [facility] Olimpia No MD LAB - CHEMISTRY ORDERABLES Fi nal Result [facility] [address] [place] [address] * (ABNORMAL) HEMOGLOBIN A1C (06/09/2024 1:59 AM [facility]) Hemoglobin A1c 9.1(H) <5.7 % 06/09/2024 2:28 AM [facility] Estimated Average Glucose 214 mg/dL 06/09/2024 2:28 AM [facility] Blood BLOOD SPECIMEN / Unknown Venipuncture / Unknown 06/09/2024 1:59 AM BREAD RACKER 06/09/2024 2:15 AM [facility] Narrative [facility] - 06/09/2024 2:28 AM [facility] HbA1c Interpretation: Normal: < 5.7% Pre-diabetes: 5.7-6.4% [...] LAB - CHEMISTRY ORDERABLES Anastasiya enciso Result [facility] [address] [place] [address] from Last 3 Months or Most Recently Relevant to Health Maintenance Insurance MEDICAID [employer] [facility] [place] Advance Directives * Full Code (Latest Code Status on File) Date Activated Date Inactivated Comments 06/08/2024 3:48 PM 06/10/2024 7:18 PM Care Teams Hat Ironer Relationship Specialty Start Date End Date Braydon Pavon PA [address] [place] [address] PCP - General Physician Snuff Blender 3/12/24
--- OUTSIDE RECORDS SUMMARY | 2025-01-25 12:44 | XMS_ITS | Patient Health Record ---
Author Organization [employer] [facility] [employer] Address [address] [place] [address] Care Team Providers Care Parachute Marker Name Role Phone VIKTORIA FLORIAN Unavailable [phone] Reason For Referral No Information Plan Of Treatment No Information
--- OUTSIDE RECORDS SUMMARY | 2025-01-25 12:44 | XMS_ITS | Encounter Summary ---
Author Organization [facility] Healthcare Address [address] [place] [address] Care Team Providers Care Burring Wheel Operator Name Role Phone Nacho Rodriguez MD Unavailable [phone] Elian Gross MD Unavailable Braydon Pavon Primary Care Provider Encounter Details Date Type Department Care Team (Late st Contact Info) Description 12/14/2024 Hospital Encounter [facility] Operating Room [address] [place] [phone] Valeriano Torres MD 1 [facility] [address] [place], [place] [id number] Social History Tobacco Use Types Packs/Day Years [...] on file Legal Sex Male 2:52 PM DIGITAL ART DIRECTOR Gender Identity Male 10/29/2020 12:37 PM [...] obstruction documented in this encounter Care Teams Burring Wheel Operator Relationship Specialty Start Date End Date Braydon Pavon PA [address] [place] [id number] PCP - General 08/23/21 [place] [address] [address] [address] Consulting Physician Endocrinology 05/20/21 [place] [address] [address] Consulting Physician Internal Medicine 05/20/21 documented as of this encounter
--- OUTSIDE RECORDS SUMMARY | 2025-01-25 12:44 | XMS_ITS | Encounter Summary ---
Author Organization [facility] Address [address] [place] [address] Care Team Providers Care Silk Finisher Name Role Phone None, Provider Primary Care Provider Braydon Piedra Primary Care Provider [phone] Encounter Details Date Type Department Care Team (Late st Contact Info) Description 10/09/2018 Abstract [facility] [address] [place] [address] , Generic Conversion, Social History Tobacco Use [...] on filedocumented in this encounter Care Teams Silk Finisher Relationship Specialty Start Date End Date None, ProviderMD PCP - General 02/08/19 03/01/19 Braydon Pavon PA PCP - General PHYSICIAN OLDER WORKER SPECIALIST 03/02/19 documented as of this encounter
--- OUTSIDE RECORDS SUMMARY | 2025-01-25 12:44 | XMS_ITS | Clinical Summary ---
Author Organization [facility] Address [address] [place] [address] Care Team Providers Care Groundman/Lineman Name Role Phone Braydon Pavon Primary Care Provider [phone] Allergies Active Allergy Reactions Criticality Noted Date [...] (two) times daily. Active vitamin D2, ergocalciferol, 58300 UNITS capsule Take 1 capsule (50,000 Units total) by mouth every 30 (thirty) days. Active Insulin Pen Needle (PEN NEEDLES) 32G X 4 MM Misc Inject 3 times daily Active ONE TOUCH ULTRA TEST STRIPS test stripIndications: Type 2 diabetes mellitus with hyperglycemia, with long-term current use of insulin ([facility] [...] hyperglycemia, with long-term current use of insulin ([facility] [...] hyperglycemia, with long-term current use of insulin ([facility]) TAKE 1 TABLET (500 MG TOTAL) BY MOUTH DAILY WITH SUPPER. 90 tablet 1 Active Continuous Glucose Sensor (DEXCOM G7 SENSOR) MiscIndications:T ype 2 diabetes mellitus with hyperglycemia, with long-term current use of insulin ([facility]) CHANGE SENSOR EVERY 10 DAYS 3 each 2 025 Active Continuous Glucose Sensor (DEXCOM G7 SENSOR) MiscIndications:T ype 2 diabetes mellitus with hyperglycemia, with long-term current use of insulin ([facility]) CHANGE SENSOR EVERY 10 DAYS 3 each 11 024 2024 Discontinued Active Problems Problem Noted Date Diagnosed Date Diabetic neuropathy associat ed with type 2 diabetes mellitus ([facility]) 10/29/2020 Lumbar degenerative disc disease 05/23/2019 Essential hypertension 07/21/2018 TRACY (obstructive sleep apnea) 09/14/2016 Thrombocytopenia 09/14/2016 Esophageal varices ([facility]) 09/09/2016 Hepatic encephalopathy ([facility]) 017 Type 2 diabetes mellitus wit h hyperglycemia, with long-term current use of insulin ([facility]) 09/09/2016 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 s/p TIPS in 2015. -RUQ today showing TIPS with slower velocity compared to 08/2017 but still patent, rec close FU. -rifaximin -holding lactulose for diarrhea -should have BB outpt Resolved Problems Problem Noted Date Diagnosed Date Resolved Date Bacterial endocarditis ([facility]) 05/14/2020 06/05/2024 BLAND (nonalcoholic steatohepatitis) 07/21/2018 04/05/2019 Diabetes mellitus, type 2 ([facility]) 02/02/2018 06/05/2024 Morbid obesity 12/09/2016 06/05/2024 History [...] Vaccines (1 of 2) 2020 PHQ-2 (Physician Kake) 05/04/2024 02/15/2024 Hemoglobin A1C 09/06/2024 06/09/2024, 05/05, [...] this topic Medical Devices Implanted Type Area Plant Technician Device Identifier Shelf Expiration Date Model / Serial / Lot [employer] Stent-01/02/2021 Implanted: 021 (Quantity not on file) Stent Abdomen [employer] - [employer] R BARD [id number] / / Description:Non-clinical silvia ting demonstrated that [...] field of 720 Gauss/cm or less Maximum jfbzs-hait-hjfawevl specific absorption rate (IVANA) of 2-W/kg for 15 minutes of scanning for patient landmarks above the umbilicus. Maximum WB-IVANA of 1 W/kg for 15 min. of scanning for patient landmarks below the umbilicus. Procedures Procedure Name Priority Date/Time Associated Diagnosis Comments HEMOGLOBIN, GLYCOSYLATED Routine 05/31/2024 Type 2 diabetes mellitus with hyperglycemia, with long-term current use of insulin ([facility]) from Last 3 Months or Most Recently Relevant to Health Maintenance Results * HEMOGLOBIN, GLYCOSYLATED (05/31/2024) HGB A1C 10.3 % [address] [facility] 05/31/2024 us Eva Power MD LABORATORY Final Result [address] [facility] [place] [address], from Last 3 Months or Most Recently Relevant to Health Maintenance Insurance [facility] Care Teams Groundman/Lineman Relationship Specialty Start Date End Date Braydon Pavon PA PCP - General PHYSICIAN DIRECTOR OF HOUSING 03/02/19
--- NOTE | 2025-01-25 12:50 | ED_ITS ---
HPI - General Adult General Chief complaint: Unspecified Stated complaint: abnormal labs Time Seen by Provider: 01/25/25 12:43 Source: patient Mode of arrival: ambulatory Limitations: no limitations History of Present Illness HPI narrative: Patient is a 54-year-old male with SIRS criteria and fever this past week with admission to this facility but no source found. He had blood cultures with one of them negative and the other had Gram-positive cocci with pending sensitivity. The primary doctor was concerned and sent him to the ER for further evaluation with the pending sensitivity (the doctor was actually out of town and the nurse was that concerned person and sent to the ER). Patient has no fever or any symptoms at this time. He is feeling normal again. He got IV antibiotics during his stay and in the ER as well as sent home with Levaquin. He has is chronic right upper quadrant pain where his gallbladder is being removed in the next month. His CT scan from the ER the other day showed only colitis and other chronic conditions. Patient has diabetes type 2. Onset (ago): week(s) (1) Location: abdomen (Chronic right upper quadrant pain) Radiation: non-radiation Severity: mild Severity scale (1-10): 2 Quality: sharp Pain Consistency: constant Relieving factors: none Exacerbating factors: none Associated symptoms: denies other symptoms Treatments prior to arrival: other (Patient is on Levaquin from the hospitalization of fever and SIRS criteria and colitis on CT scan with pending gallbladder removal in the near future) Related Data Home Medications ?Medication ?Instructions ?Recorded ?Confirmed ?Last Taken ?Type albuterol sulfate 90 mcg/actuation 2 puff inhalation Q 8-10H PRN 02/19/20 01/23/25 Unknown History aerosol inhaler Wheezing alprazolam 1 mg tablet 0.5 mg PO TID PRN Anxiety 01/23/25 Unknown History ondansetron HCl 4 mg tablet 4 mg PO BID PRN Nausea 08/2201/23/25 Unknown History blood sugar diagnostic (OneTouch 02/23/24 01/23/25 Un known History Ultra Test strips) blood-glucose sensor (Dexcom G7 02/23/24 01/23/25 Unk nown History Sensor device) dulaglutide 0.75 mg/0.5 mL 0.75 mg subcut DAILY 01/23/25 Unknown History subcutaneous pen injector (Trulicity) hydrocodone 10 mg-acetaminophen 10 - 325 tablet PO GRIS LY 02/23/24 01/23/25 Unknown History 325 mg tablet insulin lispro 100 unit/mL 100 unit subcut DIRECTED 02/23/24 01/23/25 Unknown History subcutaneous pen (Humalog KwikPen (U-100) Insulin) lactulose 10 gram/15 mL oral 10 g PO DAILY 02/23/24 Unknown History solution (Enulose) pen needle, diabetic 31 gauge x 02/23/24 01/23/25 Unk nown History 09/16 (TRUEplus Pen Needle) pregabalin 200 mg capsule 200 mg PO DAILY 02/23/24 Unknown History pregabalin 100 mg capsule 100 mg PO HS 01/23/25 Unknown History Allergies Allergy/AdvReac Type Severity Reaction Status Date / Time aztreonam (Azactam) Allergy Intermediate Unknown Verified 01/25/25 12:41 ciprofloxacin (Cipro) Allergy Intermediate Unknown Verified 01/25/25 12:41 esomeprazole (Nexium) Allergy Intermediate Unknown Verified 01/25/25 12:41 octreotide Allergy Intermediate Unknown Verified 01/25/25 12:41 sulfanilamide Allergy Intermediate Unknown Verified 01/25/25 12:41 erythromycin base Allergy Unknown Unknown Verified 01/25/25 12:41 Penicillins Allergy Unknown Unknown Verified 01/25/25 12:41 Sulfa (Sulfonamide Allergy Unknown Unknown Verified 01/25/25 12:41 Antibiotics) duloxetine Allergy Unknown Verified 01/25/25 12:41 magnesium Allergy Unknown Verified 01/25/25 12:41 nisoldipine Allergy Unknown Verified 01/25/25 12:41 prochlorperazine Allergy Unknown Verified 01/25/25 12:41 IVP dye Allergy Intermediate Unknown Uncoded 01/23/25 04:57 Contrast Media Allergy Unknown Unknown Uncoded 06/08/24 07:33 Review of Systems 2 Review of Systems: All systems reviewed & are unremarkable except as noted in HPI and below Constitutional: Constitutional: Reports no additional constitutional complaints Eyes: Eyes: Reports no additional eye complaints ENT: Reports system reviewed and no additional complaints, except as documented Cardiovascular: Cardiovascular: Reports no additional cardiovascular complaints Respiratory: Respiratory: Reports no additional respiratory complaints Gastrointestinal: Gastrointestinal: Reports no additional gastrointestinal complaints Genitourinary: Genitourinary: Reports no additional male genitourinary complaints Musculoskeletal: Musculoskeletal: Reports no additional musculoskeletal complaints Integumentary/Breasts: Skin/Breast: Reports system reviewed and no additional complaints, except as docu Neurologic: Reports system reviewed and no additional complaints, except as documented Psychiatric: Psychiatric: Reports no additional psychiatric complaints Endocrine: Endocrine: Reports no additional endocrine complaints Hematologic/Lymphatic: Hematologic/Lymphatic: Reports no additional hematologic/lymphatic complaints Allergic/Immunologic: Allergic/Immunologic: Reports no additional allergic/immunologic complaints [facility] Past Medical History Medical History Chronic back pain Diabetes mellitus type 2 in obese Hepatic encephalopathy GI bleeding GERD (gastroesophageal reflux disease) Varices, esophageal Liver failure Surgical History Surgical History S/P TIPS (transjugular intrahepatic portosystemic shunt) Social History Social History Smoking status: Former smoker Alcohol intake: never Substance use: never Lack of Transportation: No Lack of Food: Never True Current Housing: I Have Housing Concerned About Future Housing: No Difficulty Paying Gas/Electric Bills: No Difficulty Paying for Meds: No Currently Unemployed: No Education: Trade/Vocational Certificate Difficulty w/ Childcare or Family Care: No Living arrangements: with family Spiritual care concerns: No Exam 2 Const: General: cooperative, healthy appearing and comfortable HENMT: Head: normal to inspection, No palpable skull fracture present and normocephalic Eyes: General: appearance normal, both eyes and all related structures V isual Khalil: normal visual khalil by confrontation Alignment and Position: a lignment normal Neck: Neck: normal visual inspection, full ROM and no lymphadenopathy Chest: Chest palpation & inspection: normal inspection of the chest, normal palpation of entire chest wall and normal inspection of the chest Resp: Effort & Inspection: normal respiratory effort, able to speak in complete sentences and normal respiratory pattern Auscultation: clear to auscultation bilaterally, no bronchial breath sounds and bronchovesicular breath sounds Percussion: percussion normal tactile fremitus present: tactile fremitus absent Cardio: Jugular venous distension: no JVD Palpation: normal PMI Rate: r egular rate Rhythm: regular rhythm Heart sounds: S1 normal heart sound present and S2 normal heart sound present GI: Inspection: normal to inspection, no abdominal wall ecchymosis, no edema and non-distended GI Palp: No abdominal tenderness Auscultation: normal bowel sounds Back/Spine/Pelvis: Back: no CVA tenderness, No CVA tenderness, No mass, No erythema and No warmth Skin: General skin exam: normal color, no rashes or lesions noted and elasticity normal Neuro: General: oriented to person, oriented to place, oriented to time, gait normal, tone normal, moves all extremities, Normal light touch and pain sensation, no meningeal signs and no focal motor deficits Extrem: General: normal to inspection, full ROM, capillary refill normal and normal exam except as noted Psych: Appearance: grossly normal Mental Status: mental status grossly normal Speech and movement: Normal speech and movement present Course Vital Signs Vital signs: Vital Signs Temperature 36.9 C 01/25/25 12:38 Pulse Rate 75 01/25/25 12:38 Respiratory Rate 18 01/25/25 12:38 Blood Pressure 159/91 H 01/25/25 12:38 Pulse Oximetry 99 01/25/25 12:38 Oxygen Delivery Room Air 01/25/25 12:38 Temperature 36.9 C 01/25/25 12:38 Pulse Rate 75 01/25/25 12:38 Respiratory Rate 18 01/25/25 12:38 Blood Pressure 159/91 H 01/25/25 12:38 Pulse Oximetry 99 01/25/25 12:38 Oxygen Delivery Room Air 01/25/25 12:38 Medical Decision Making [facility] Narrative Medical decision making narrative: Patient is a 54-year-old male with recent hospitalization for fever and SIRS criteria and colitis. Gram-positive cocci in 1/2 cultures is positive. Primary doctor nurse sent to the ER for evaluation with this positivity as the doctor is out of town. Redrawn labs and blood cultures. Patient never started the Levaquin and due to the fact that he is allergic to Cipro I told him to not take the Levaquin and we will do clindamycin for the Gram-positive cocci with pending sensitivity. Vital Signs Vital Signs: Vital Signs Temperature 36.9 C 01/25/25 12:38 Pulse Rate 75 01/25/25 12:38 Respiratory Rate 18 01/25/25 12:38 Blood Pressure 159/91 H 01/25/25 12:38 Pulse Oximetry 99 01/25/25 12:38 Oxygen Delivery Room Air 01/25/25 12:38 Temperature 36.9 C 01/25/25 12:38 Pulse Rate 75 01/25/25 12:38 Respiratory Rate 18 01/25/25 12:38 Blood Pressure 159/91 H 01/25/25 12:38 Pulse Oximetry 99 01/25/25 12:38 Oxygen Delivery Room Air 01/25/25 12:38 Lab Data Lab results reviewed: Yes I reviewed the patient's lab results. 01/25/25 13:07 01/25/25 13:07 Labs: Lab Results 01/25/25 Range/Units 13:07 WBC 2.5 L (4.8-10.8) K/mm3 RBC 4.95 (4.70-6.10) M/mm3 Hgb 12.4 L (14.0-18.0) g/dL Hct 40.2 (40.0-54.0) % MCV 81.2 (78.0-102.0) fL MCH 25.1 L (27.0-31.0) pg MCHC 30.8 L (32-36) g/dL RDW 16.8 H (11.6-14.4) % Plt Count 44 L (150-420) K/mm3 MPV Not Reportable Immature Gran % (Auto) Not Reportable Neut % (Auto) Not Reportable Lymph % (Auto) Not Reportable Bledsoe % (Auto) Not Reportable Eos % (Auto) Not Reportable Baso % (Auto) Not Reportable Lymph # (Auto) Not Reportable Bledsoe # (Auto) Not Reportable Eos # (Auto) Not Reportable Baso # (Auto) Not Reportable Abs Immat Gran (auto) Not Reportable Absolute Neuts (auto) Not Reportable Absolute Nucleated RBC Not Reportable Total Counted 100 Neutrophils % (Manual) 82 H (46-73) % Band Neutrophils % 1 (0-6) % Lymphocytes % (Manual) 12 L (18-44) % Monocytes % (Manual) 5 (3-9) % Eosinophils % (Manual) 0 L (1-6) % Basophils % (Manual) 0 (0-1) % Nucleated RBC % Not Reportable Abs Neuts (Manual) 2.07 (1.3-6.7) K/mm3 Abs Lymphs (Manual) 0.30 L (1.1-4.5) K/mm3 Abs Monocytes (Manual) 0.12 (0.1-0.90) K/mm3 Absolute Eos (Manual) 0.00 L (0.02-0.50) K/mm3 Abs Basophils (Manual) 0.00 (0-0.1) K/mm3 Platelet Estimate Decreased (Adequate) % Immature Plt Fraction 9.5 H (1.0-7.0) % Schistocytes Not Reportable Sodium 144 (137-145) mmol/L Potassium 4.4 (3.4-5.0) mmol/L Chloride 107 (98-107) mmol/L Carbon Dioxide 27 (22-30) mmol/L Anion Gap 10 (4-12) mmol/L BUN 13 (9-20) mg/dL Creatinine 0.91 (0.7-1.3) mg/dL Estim Creat Clear Calc 92 ml/min Estimated GFR > 60 (59 - ) Glucose 202 H (65-110) mg/dL Calculated Osmolality 304 H (285-295) mOsm/kg Lactic Acid 1.0 (0.4-2.0) mmol/L Calcium 9.1 (8.4-10.2) mg/dL Total Bilirubin 1.3 (0.2-1.3) mg/dL AST 22 (17-59) U/L ALT 12 (6-50) U/L Alkaline Phosphatase 116 (38-126) U/L Total Protein 8.0 (6.3-8.2) g/dL Albumin 3.7 (3.5-5.1) g/dL Discharge Plan Discharge Clinical Impression: Blood bacterial culture positive, Pancytopenia Cirrhosis of liver Qualifiers: Hepatic cirrhosis type: other cirrhosis Qualified Code(s): K74.69 - Other cirrhosis of liver Patient Disposition: Home Condition: Stable Instructions: Antibiotic Form, Fever in Adults (ED) Patient Language: Iraqi Prescriptions: New clindamycin HCl [Cleocin HCl] 300 mg capsule 300 mg PO TID 7 Days Qty: 21 0RF No Action albuterol sulfate 90 mcg/actuation HFA aerosol inhaler 2 puff INHALATION Q8-10H PRN (Reason: Wheezing) alprazolam 1 mg tablet 0.5 mg PO TID PRN (Reason: Anxiety) ondansetron HCl 4 mg tablet 4 mg PO BID PRN (Reason: Nausea) (DME) OneTouch Ultra Test Strip MISCELLANEOUS hydrocodone-acetaminophen 10-325 mg tablet 10 - 325 tablet PO DAILY insulin lispro [Humalog KwikPen Insulin] 100 unit/mL insulin pen 100 unit SUBCUT DIRECTED (DME) pen needle, diabetic [TRUEplus Pen Needle] 31 gauge x 5/16 needle MISCELLANEOUS lactulose [Enulose] 10 gram/15 mL solution 10 g PO DAILY pregabalin 200 mg capsule 200 mg PO DAILY (DME) Dexcom G7 Sensor Device MISCELLANEOUS Trulicity 0.75 mg/0.5 mL pen injector 0.75 mg SUBCUT DAILY pregabalin 100 mg capsule 100 mg PO HS levofloxacin 500 mg tablet 500 mg PO DAILY Qty: 3 0RF omeprazole 20 mg capsule,delayed release(DR/EC) 20 mg PO BID Qty: 60 0RF Follow-up/Referrals: Librado,SONALI Huizar [Primary Care Provider] Time of Disposition: 13:39
[2025-01-25 13:22] LABS: Hematocrit 40.2 % (40.0-54.0); Hemoglobin 12.4 g/dL (14.0-18.0); Immature Platelet Fraction Pct 9.5 % (1.0-7.0); Mean Corpuscular HGB Conc 30.8 g/dL (32-36); Mean Corpuscular Hemoglobin 25.1 pg (27.0-31.0); Mean Corpuscular Volume 81.2 fL (78.0-102.0); Platelet Count Result 44 K/mm3 (150-420); Red Blood Count 4.95 M/mm3 (4.70-6.10); White Blood Count 2.5 K/mm3 (4.8-10.8)
[2025-01-25 13:30] LABS: Alanine Aminotransferase 12 U/L (6-50); Albumin Level 3.7 g/dL (3.5-5.1); Alkaline Phosphatase 116 U/L (38-126); Anion Gap 10 mmol/L (4-12); Aspartate Amino Transferase 22 U/L (17-59); Bilirubin,Total 1.3 mg/dL (0.2-1.3); Blood Urea Nitrogen 13 mg/dL (9-20); Calcium 9.1 mg/dL (8.4-10.2); Carbon Dioxide 27 mmol/L (22-30); Chloride 107 mmol/L (98-107); Estimated CRCL calculation 92 ml/min; Estimated Glomerular Filt Rate > 60; Glucose 202 mg/dL (65-110); Osmolality Calculated 304 mOsm/kg (285-295); Potassium 4.4 mmol/L (3.4-5.0); Sodium 144 mmol/L (137-145); Total Protein 8.0 g/dL (6.3-8.2)
[2025-01-25 13:35] LABS: Band Neutrophils Percent 1 % (0-6); Basophils Absolute Manual 0.00 K/mm3 (0-0.1); Basophils Percent Manual 0 % (0-1); Eosinophils Absolute Manual 0.00 K/mm3 (0.02-0.50); Eosinophils Percent Manual 0 % (1-6); Lymphocytes Absolute Manual 0.30 K/mm3 (1.1-4.5); Lymphocytes Percent Manual 12 % (18-44); Monocytes Absolute Manual 0.12 K/mm3 (0.1-0.90); Monocytes Percent Manual 5 % (3-9); Neutrophils Absolute Manual 2.07 K/mm3 (1.3-6.7); Neutrophils Percent Manual 82 % (46-73); Total Cells Counted 100
[2025-01-25 13:46] VITALS: BP 145/94; PULSE 67; RESP 16; TEMP 36.8; O2SAT 100
--- NOTE | 2025-01-28 12:30 | PC.NURSE ---
PRELIMINARY BLOOD CULTURE NO GROWTH IN 24 HOURS
--- NOTE | 2025-01-29 13:40 | PC.NURSE ---
PRELIMINARY BLOOD CULTURE NO GROWTH IN 48 HOURS
--- NOTE | 2025-02-01 13:27 | PC.NURSE ---
FINAL BLOOD CULTURE RESULTS X2: NO AEROBIC OR ANAEROBIC GROWTH IN 5 DAYS
== END 2025-01-25 13:49 | disposition home or self-care (01) ==
PROVIDERS: Emergency Provider Emergency Medicine; PCP Physician Assistant
DX: K74.69 Other cirrhosis of liver (principal); D61.818 Other pancytopenia; B96.89 Other specified bacterial agents as the cause of diseases classified elsewhere; E11.9 Type 2 diabetes mellitus without complications; Z79.4 Long term (current) use of insulin; Z79.899 Other long term (current) drug therapy; Z87.891 Personal history of nicotine dependence
CPT/HCPCS: 36415; 80053; 83605; 85025; 85055; 87040; 99283

== ENCOUNTER 2025-02-21 10:22 | Outpatient (CLI) | payer OTHER, SELFPAY ==
--- NOTE | ~2025-02-21 | XR_ITS ---
EXAMINATION: XR chest 2V, 02/21/2025 10:30 CDT HISTORY: CHF COMPARISON: No comparisons available. Technique: 2 views obtained. Findings: The lungs are clear, no effusion. No pneumothorax. Heart is normal size. Mediastinal and hilar contours are within normal limits. Bony thorax no acute abnormality. Impression: No acute cardiopulmonary abnormality. Reviewed, dictated and finalized at location P. Impression: No acute cardiopulmonary abnormality.
--- OUTSIDE RECORDS SUMMARY | 2025-02-21 12:38 | XMS_ITS | Patient Health Record ---
Author Organization [facility] Address [address] [place] [address] Care Team Providers Care Digital Intern Name Role Phone VIKTORIA FLORIAN Unavailable [phone] Reason For Referral No Information Plan Of Treatment No Information
--- OUTSIDE RECORDS SUMMARY | 2025-02-21 12:38 | XMS_ITS | Encounter Summary ---
Author Organization [facility] Address [address] [place] [address] Care Team Providers Care Motor Coach Chauffeur Name Role Phone Braydon Pavon Primary Care Provider Nikolay Lancaster MD Unavailable [phone] Simon Lundberg MD Primary Care Provider [phone] Nacho Rodriguez MD Unavailable [phone] Elian Gross MD Unavailable Braydon Pavon Primary Care Provider [phone] Encounter Details Date Type Department Care Team (Late st Contact Info) Description 09/14/2020 Telephone [facility] [address] [place], [place] [id number] Trice Aldana, RT Social History Tobacco Use [...] file 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 Gender Identity Male 10/29/2020 12:37 PM CDT Sexual Orientation Straight 10/29/2020 12 :37 PM CDT documented as of this encounter Plan of Treatment Not on file documented as of this encounter Visit Diagnoses Not on filedocumented in this encounter Care Teams Motor Coach Chauffeur Relationship Specialty Start Date End Date Braydon Pavon PA [address] [place] [address] PCP - General Family Practice 05/09/20 05/19/21 Simon Lundberg MD [address] [place] [address] PCP - General Family Medicine 05/20/21 08/22/21 Braydon Pavon PA [address] [place] [address] PCP - General 08/23/21 Nikolay Lancaster MD [address] [place] [address] 05/09/20 05/19/21 [place] [address] [facility] [address] [place] [address] Consulting Physician Endocrinology 05/20/21 [place] [address] [facility] [address] [place] [address] Consulting Physician Internal Medicine 05/20/21 documented as of this encounter
--- OUTSIDE RECORDS SUMMARY | 2025-02-21 12:38 | XMS_ITS | Encounter Summary ---
Author Organization [facility] Address [address] [place] [address] Care Team Providers Care Case Management Coordinator Name Role Phone Braydon Pavon Primary Care Provider [phone] Nikolay Lancaster MD Unavailable [phone] Simon Lundberg MD Primary Care Provider [phone] Nacho Rodriguez MD Unavailable [phone] Elian Gross MD Unavailable Braydon Pavon Primary Care Provider [phone] Encounter Details Date Type Department Care Team (Late st Contact Info) Description 10/05/2020 Telephone [facility] Imaging [address] [place], [place] [id number] Trice Aldana, RT Social History Tobacco Use [...] on file 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 Gender Identity Male 10/29/2020 12:37 PM CDT Sexual Orientation Straight 10/29/2020 12 :37 PM CDT documented as of this encounter Plan of Treatment Not on file documented as of this encounter Visit Diagnoses Not on filedocumented in this encounter Care Teams Case Management Coordinator Relationship Specialty Start Date End Date Braydon Pavon PA [address] [place] [address] PCP - General Family Practice 05/09/20 05/19/21 Simon Lundberg MD [address] [place] [address] PCP - General Family Medicine 05/20/21 08/22/21 Braydon Pavon PA [address] [place] [address] PCP - General 08/23/21 Nikolay Lancaster MD [address] [place] [address] 05/09/20 05/19/21 [place] [address] [facility] [facility] [address], [place] [address] Consulting Physician Endocrinology 05/20/21 [place] [address] [facility] [address], [place] [address] Consulting Physician Internal Medicine 05/20/21 documented as of this encounter
--- OUTSIDE RECORDS SUMMARY | 2025-02-21 12:38 | XMS_ITS | Clinical Summary ---
Author Organization [facility] Address [address] [place] [address] Care Team Providers Care Ux Researcher Name Role Phone Braydon Pavon Primary Care Provider [phone] Allergies Active Allergy Reactions Criticality Noted Date [...] (two) times daily. Active vitamin D2, ergocalciferol, 49451 UNITS capsule Take 1 capsule (50,000 Units total) by mouth every 30 (thirty) days. Active Insulin Pen Needle (PEN NEEDLES) 32G X 4 MM Misc Inject 3 times daily 08/04/19 20 Active ONE TOUCH ULTRA TEST STRIPS test stripIndications:T ype 2 diabetes mellitus with hyperglycemia, with long-term current use of insulin ([facility]) Test 4 times daily 200 [...] tablet (4 mg total) by mouth. 05/20/19 24 Active pregabalin (LYRICA) 200 MG capsule Take 1 capsule (200 mg total) by mouth daily. Active insulin regular, CONCENTRATED, (HUMULIN R U-500 KWIKPEN) 500 UNIT/ML injectionIndicatio ns:Type 2 diabetes mellitus with hyperglycemia, with long-term current use of insulin ([facility]) Inject 0.4 mLs (200 Units total) into the skin 3 (three) times daily before meals. 18 mL 11 02/19/20 24 Active Additional Information Patient taking differently:200 Units Subcutaneous 3 times daily before meals,Pt taking 200 units three times, Reported on 05/31/2024 tirzepatide (MOUNJARO) 2.5 MG/0.5ML injectionIndicatio ns:Diabetes Mellitus [...] with long-term current use of insulin ([facility] H[facility]/HCC) TAKE 1 TABLET (500 MG TOTAL) BY MOUTH DAILY WITH SUPPER. 90 tablet 1 08/25/19 25 Active Continuous Glucose Sensor (DEXCOM G7 SENSOR) MiscIndications:Ty pe 2 diabetes mellitus with hyperglycemia, with long-term current use of insulin ([facility]CC) CHANGE SENSOR EVERY 10 DAYS 3 each 11 01/21/20 25 Active Active Problems Problem Noted Date Diagnosed Date Diabetic neuropathy associat ed with type 2 diabetes mellitus 10/29/2020 Lumbar degenerative disc disease 05/23/2019 Essential hypertension 07/21/2018 TRACY (obstructive sleep apnea) 09/14/2016 Thrombocytopenia 09/14/2016 Esophageal varices 09/09/2016 Hepatic encephalopathy 09/09/2016 Type 2 diabetes mellitus wit h hyperglycemia, with long-term current use of insulin 09/09/2016 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 s/p TIPS in 2015. -RUQ today showing TIPS with slower velocity compared to 08/2017 but still patent, rec close FU. -rifaximin -holding lactulose for diarrhea -should have BB outpt Resolved Problems Problem Noted Date Diagnosed Date Resolved Date Bacterial endocarditis 05/14/202006/05 BLAND (nonalcoholic steatohepatitis) 07/21/2018 04/05/2019 Diabetes mellitus, type 2 02/02/2018 Morbid obesity 12/09/2016 06/05/2024 History of upper gastrointestinal hemorrhage 6 04/05/2019 Encounters Date Type Department Care Team Description 02/06/2025 11:47 PM CDT - 02/07/2025 2:41 AM CDT Emergency [facility] [address] [place] [address] Abdominal Pain Discharge Disposition: Left Against Medical Advice 02/06/2025 Travel 02/03/2025 9:55 AM CDT - 02/03/2025 11:59 PM CDT Hospital Encounter [facility] [address] [place] [address] Alyssia Phillips, IMITATION [employer]BLE MECHANIC Discharge Disposition: Home or Self Care (Routine Discharge) 02/03/2025 9:47 AM CDT - 02/03/2025 9:54 AM CDT Hospital Encounter [facility] [address] [place] [address] Alyssia Phillips, IMITATION MARBLE MECHANIC Discharge Disposition: Home or Self Care (Routine Discharge) 02/03/2025 Orders Only [facility] [address] [place] [address] Alyssia Phillips NP 02/02/2025 9:48 PM CDT - 02/02/2025 11:54 PM CDT Emergency [facility] [address] [place] [address] Nabil Frederick DO Abdominal Pain; Chills Discharge Disposition: Home or Self Care (Routine Discharge) 02/02/2025 Travel from Last 3 Months Family History [...] Information Value Date Recorded Sex Assigned at Male 02/02/2025 9:54 PM CDT Legal Sex Male 9:36 PM CDT Gender Identity Not on file Sexual Orientation Straight 03/02/2019 9: 44 PM CDT Last Filed Vital Signs Vital Sign Reading Time Taken Comments Blood Pressure 105/76 02/07/2025 2:00 AM CDT Pulse 82 02/06/2025 11:55 PM CDT Temperature 36.9 C (98.5 F) 02/06/2025 11:55 PM CDT Respiratory Rate 16 02/06/2025 11:55 PM CDT Oxygen Saturation 95% 02/07/2025 2:00 AM CDT Inhaled Oxygen Concentration - - Weight 95.3 kg (210 lb) 02/06/2025 11:55 PM CDT Height 172 cm (5' 7.72) 02/06/2025 11:55 PM CDT Body Mass Index 32.2 02/06/2025 11:55 PM CDT Plan of Treatment Health Maintenance Due Date Last Done Comments Annual Physical 1973 Diabetes: Retinopathy Eye Exam 1988 DTaP, Tdap and Td Vaccines (1 - Tdap) 1989 Pneumococcal Vaccine: 50+ Years (1 of 2 - PCV) 1989 Hepatitis A Vaccines (2 of 3 - Hep A Twinrix risk 3-dose series) 10/08/2015 09/10/2015 Hepatitis B Vaccines (3 of 3 - 19+ 3-dose series) 03/12/2016 11/09/2015, 09/10/2015 Zoster Vaccines (1 of 2) 2020 PHQ-2 (Physician [place]) 05/04/2024 02/15/2024 Hemoglobin A1C 09/06/2024 06/09/2024, 05/05, 11/23/2023, Additional history exists COVID-19 Vaccine (3 - 2024- season) 2025 12/29/2020, 12/08/2020 Influenza Adult (#1) 2025 Kidney Health Evaluation 05/31/2025 05/31/2024 Lipid Panel 06/09/2025 06/09/2024 Colorectal Cancer Screening FIT/FOBT (1 Year) 02/07/2026 02/07/2025 Hepatitis C Completed 12/29/2023, 12/29/2023 Meningococcal B Vaccine Aged Out No l onger eligible based on patient's age to complete this topic Meningococcal Vaccine Aged Out No marcia rusty eligible based on patient's age to complete this topic RSV Immunizations Under 20 Months Aged Out No longer eligible based on patient's age to complete this topic Medical Devices Implanted Type Area Electronic Typesetting Machine Operator Device Identifier Shelf Expiration Date Model / Serial / Lot [employer] Stent-01/02/2021 Implanted: 021 (Quantity not on file) Stent Abdomen [employer] [id number] / / Description:Non-clinical silvia ting demonstrated that [...] field of 720 Gauss/cm or less Maximum uteyz-tdrw-pvbaoatm specific absorption rate (IVANA) of 2-W/kg for 15 minutes of scanning for patient landmarks above the umbilicus. Maximum WB-IVANA of 1 W/kg for 15 min. of scanning for patient landmarks below the umbilicus. Procedures Procedure Name Priority Date/Time Associated Diagnosis Comments CT ABD+PEL WO CON STAT 02/07/2025 12: 31 AM CDT TYPE & SCREEN STAT 02/07/2025 12:24 AM CDT AMYLASE STAT 02/07/2025 12:24 AM CDT LIPASE STAT 02/07/2025 12:24 AM CDT COMPREHENSIVE METABOLIC PANEL STAT 02/07/2025 12:24 AM CDT PARTIAL THROMBOPLASTIN TIME,PTT STAT 02/07/2025 12:24 AM CDT PROTHROMBIN TIME, VENOUS STAT 02/07/2025 12:24 AM CDT CBC W/DIFF AUTOMATED STAT 02/07/2025 12:24 AM CDT OCCULT BLOOD, FECES STAT 02/07/2025 1 2:11 AM CDT US GD PARACENT W IMAGING Routine 02/03/2025 11:59 AM CDT Alcoholic cirrhosis of liver (CMS/HCC HHS/HCC) Abdominal ascites CELL COUNT W/ DIFF BODY FLUID Routine 02/03/2025 10:50 AM CDT Ascites HC BODY FLUID CULTURE Routine 02/03/2025 10:50 AM CDT Ascites BASIC METABOLIC PANEL Routine 02/03/2025 10:01 AM CDT Ascites PARTIAL THROMBOPLASTIN TIME,PTT Routine 02/03/2025 10:01 AM CDT Ascites PROTHROMBIN TIME, VENOUS Routine 02/03/2025 10:[address] ABD+PEL WO CON STAT 02/02/2025 10: 30 PM CDT LACTIC ACID STAT 02/02/2025 10:11 PM CDT LIPASE STAT 02/02/2025 10:11 PM CDT COMPREHENSIVE METABOLIC PANEL STAT 02/02/2025 10:11 PM CDT CBC W/DIFF AUTOMATED STAT 02/02/2025 10:11 PM CDT HEMOGLOBIN, GLYCOSYLATED Routine 05/31/2024 Type 2 diabetes mellitus with hyperglycemia, with long-term current use of insulin (CMS/HCC HHS/HCC) from Last 3 Months or Most Recently Relevant to Health Maintenance Results * CT ABD+PEL WO CON (02/07/2025 12:31 AM CDT) Only the most recent of2 resultswithin the time period is included. Anatomical Region Laterality Modality Abdomen Computed Tomogra phy 02/07/2025 12:4 1 AM CDT Impressions 02/07/2025 12:50 AM CDT IMPRESSION: 1. Cirrhosis, TIPS, marked splenomegaly, moderate volume ascites as well as suggestion of paraesophageal varices. 2. Gastric wall thickening likely represents gastritis of infectious, inflammatory or portal etiology. 3. Cholelithiasis. 4. 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 Further evaluation with outpatient MRI is recommended. Referred By: Interpreted By: Martin Fajardo MD, 02/07/2025 12:41 AM Narrative 02/07/2025 12:50 AM CDT [address] [place] [address] EXAMINATION: CT Abdomen and Pelvis without contrast EXAM DATE/TIME: 02/07/2025 12:27 AM REASON FOR EXAM: 54 years of age, Male, with abdominal pain, GI bleed, rectal bleeding COMPARISON: CT abdomen pelvis 02/02/2025 TECHNIQUE: Axial CT images of the abdomen and pelvis were obtained without the use of IV contrast agent. Subsequent coronal and sagittal reformatted sequences are created for evaluation. A dose lowering technique was used for this procedure, which may include, but is not limited to, dose reduction technique, automated exposure control, iterative reconstruction, ALARA (As Low As Reasonably Achievable), or Image Gently techniques. FINDINGS: Lower chest: No mass or airspace consolidation is seen in the visualized lung bases. No pleural effusion is seen. No cardiomegaly. Trace pericardial effusion. Liver/biliary: The liver is cirrhotic. TIPS in place. Suggestion of paraesophageal varices. No definite focal liver lesions are seen. Cholelithiasis. The gallbladder is otherwise unremarkable. No biliary dilatation is seen. Pancreas/adrenals/spleen: Marked splenomegaly. Genitourinary: The right kidney is in the right lower quadrant/pelvis. No hydronephrosis is seen. Multiple cystic lesions at the superior aspect of the right pelvic kidney, not well evaluated on noncontrast CT. The urinary bladder is within normal limits. The prostate is borderline enlarged. Bowel: Gastric wall thickening. No bowel obstruction. No evidence of appendicitis. Peritoneum: Moderate volume ascites is seen. No free air is seen. Lymph nodes: No lymphadenopathy is seen. Musculoskeletal: No acute fracture or suspicious osseous lesion is seen. Procedure Note Martin Fajardo MD - 02/07/[address] [place] [address] EXAMINATION: CT Abdomen and Pelvis without contrast EXAM DATE/TIME: 02/07/2025 12:27 AM REASON FOR EXAM: 54 years of age, Male, with abdominal pain, GI bleed,rectal bleeding COMPARISON: CT abdomen pelvis 02/02/2025 TECHNIQUE: Axial CT images of the abdomen and pelvis were obtainedwithout the use of IV contrast agent. Subsequent coronal and sagittalreformatted sequences are created for evaluation. A dose loweringtechnique was used for this procedure, which may include, but is notlimited to, dose reduction technique, automated exposure control,iterative reconstruction, ALARA (As Low As Reasonably Achievable), orImage Gently techniques. FINDINGS: Lower chest: No mass or airspace consolidation is seen in the visualizedlung bases. No pleural effusion is seen. No cardiomegaly. Tracepericardial effusion. Liver/biliary: The liver is cirrhotic. TIPS in place. Suggestion ofparaesophageal varices. No definite focal liver lesions are seen.Cholelithiasis. The gallbladder is otherwise unremarkable. No biliarydilatation is seen. Pancreas/adrenals/spleen: Marked splenomegaly. Genitourinary: The right kidney is in the right lower quadrant/pelvis. Nohydronephrosis is seen. Multiple cystic lesions at the superior aspect ofthe right pelvic kidney, not well evaluated on noncontrast CT. The urinarybladder is within normal limits. The prostate is borderline enlarged. Bowel: Gastric wall thickening. No bowel obstruction. No evidence ofappendicitis. Peritoneum: Moderate volume ascites is seen. No free air is seen. Lymph nodes: No lymphadenopathy is seen. Musculoskeletal: No acute fracture or suspicious osseous lesion is seen. IMPRESSION: 1. Cirrhosis, TIPS, marked splenomegaly, moderate volume ascites as wellas suggestion of paraesophageal varices. 2. Gastric wall thickening likely represents gastritis of infectious,inflammatory or portal etiology. 3. Cholelithiasis. 4. Right pelvic kidney with multiple cystic lesions at the superioraspect not well evaluated on noncontrast CT. Further evaluation withoutpatient MRI is recommended. Referred By: Interpreted By: Martin Fajardo MD, 02/07/2025 12:[address] DO CT Final Result * TYPE AND SCREEN (02/07/2025 12:24 AM CDT) ABO/RH A POSITIVE 02/07/2025 1:13 AM CDT [facility] ANTIBODY SCREEN NEGATIVE 02/07/2025 1:13 AM CDT [facility] SAMPLE EXPIRATION 02/10/2025,2 359 02/07/2025 1:13 AM CDT [facility] 02/07/2025 12:2 [address] DO BLOOD BANK TEST ORDERABLES F inal Result Performing Organization Address [facility] Co de Phone Number [facility] [address] [place] [address], * PARTIAL THROMBOPLASTIN TIME,PTT (02/07/2025 12:24 AM CDT) Only the most recent of2 resultswithin the time period is included. PTT 35.4 25.1 - 36.5 SEC 02/07/2025 12:40 AM CDT [facility] 02/07/2025 12:2 [address] DO LABORATORY Final Result Performing Organization Address [facility] de Phone Number [facility] [address] [place] [phone], * (ABNORMAL) PROTIME/INR, VENOUS (02/07/2025 12:24 AM CDT) Only the most recent of2 resultswithin the time period is included. PROTIME 14.6(H) 9.4 - 12.5 SEC 02/07/2025 12:40 AM CDT [facility] INR 1.3(H) 0.8 - 1.0 02/07/2025 12:40 AM CDT [facility] 02/07/2025 12:2 [address] CD[address] DO LABORATORY Final Result Performing Organization Address [facility] Co de Phone Number [facility] [address] [place] [phone], * (ABNORMAL) COMPREHENSIVE METABOLIC PANEL (02/07/2025 12:24 AM CDT) Only the most recent of2 resultswithin the time period is included. SODIUM S/P/B 143 136 - 145 MMOL/L 02/07/2025 12:47 AM CDT [facility] POTASSIUM S/P/B 4.0 3.5 - 5.1 MMOL/L 02/07/2025 12:47 AM T [facility] CHLORIDE S/P/B 107 98 - 107 MMOL/L 02/07/2025 12:47 AM [facility] CO2 29.8 21.0 - 32.0 MMOL/L 02/07/2025 12:47 AM [facility] GLUCOSE 163(H) 70 - 99 MG/DL 02/07/2025 12:47 AM [facility] Comment: FASTING GLUCOSE 100 TO 125 MG/DL IS CONSISTENT WITH IMPAIRED FASTING GLUCOSE. FASTING GLUCOSE >125 MG/DL IS CONSISTENT WITH DIABETES. RANDOM GLUCOSE >200 MG/DL WITH HYPERGLYCEMIC SYMPTOMS IS CONSISTENT WITH DIABETES. PER ADA GUIDELINES BUN 21 6 - 24 MG/DL 02/07/2025 12:47 AM [facility] CREATININE S/P/B 1.22 0.70 - 1.30 MG/DL 02/07/2025 12:47 AM [facility] CALCIUM S/P/B 8.8 8.4 - 10.5 MG/DL 02/07/2025 12:47 AM [facility] BILIRUBIN TOTAL S/P/B 0.9 0.2 - 1.0 MG/DL 02/07/2025 12:47 AM [facility] Comment: THIS ASSAY IS NOT RECOMMENDED FOR PATIENTS UNDERGOING TREATMENT WITH ELTROMBOPAG DUE TO THE POTENTIAL FOR FALSELY ELEVATED RESULTS. ALKALINE PHOSPHATASE S/P/B 96 45 - 115 U/L 02/07/2025 12:47 AM [facility] AST 15 15 - 37 U/L 02/07/2025 12:47 AM [facility] ALT 7(L) 16 - 63 U/L 02/07/2025 12:47 AM [facility] TOTAL PROTEIN S/P/B 6.3(L) 6.4 - 8.2 G/DL 02/07/2025 12:47 AM [facility] ALBUMIN S/P/B 2.7(L) 3.4 - 5.0 G/DL 02/07/2025 12:47 AM CDT [facility] ANION GAP 6.2 5.0 - 15.0 MMOL/L 02/07/2025 12:47 AM CDT [facility] OSMOLALITY (CALC) 303 MOSM/KG 025 12:47 AM CDT [facility] Comment:REFERENCE RANGE NOT ESTABLISHED GFR ESTIMATE 70(L) >89 ML/MIN/1. 73 M2 02/07/2025 12:47 AM CDT [facility] GFR NOTES GFR REFERENCE S: 02/07/2025 12:47 AM CDT [facility] Comment: THE ESTIMATED GFR IS [...] ml/min/1.73 m2 G5,KIDNEY FAILURE: <15 ml/min/1.73 m2 02/07/2025 12:2 [address] DO LABORATORY Final Result [facility] [address] [place] [address], * (ABNORMAL) CBC W/DIFF AUTOMATED (02/07/2025 12:24 AM CDT) Only the most recent of2 resultswithin the time period is included. WBC 3.88(L) 4.00 - 10.80 x10'3/uL 02/07/2025 12:42 AM CDT [facility] RBC 4.24(L) 4.50 - 6.10 x10'6/uL 02/07/2025 12:42 AM CDT [facility] HGB 10.9(L) 13.0 - 18.0 G/DL 02/07/2025 12:42 AM CDT [facility] HCT 33.9(L) 37.0 - 52.0 % 02/07/2025 12:42 AM CDT [facility] MCV 80.0 78.0 - 100.0 FL 02/07/2025 12:42 AM CDT [facility] MCH 25.7(L) 27.0 - 31.0 PG 02/07/2025 12:42 AM CDT [facility] MCHC 32.2(L) 33.0 - 36.0 G/DL 02/07/2025 12:42 AM CDT [facility] RDW 16.4(H) 11.5 - 14.5 % 02/07/2025 12:42 AM CDT [facility] PLT 68(L) 150 - 350 x10'3/uL 02/07/2025 12:42 AM CDT [facility] MPV 12.4(H) 7.4 - 10.4 FL 02/07/2025 12:42 AM CDT [facility] CBC COMMENT NORMAL REFERENCE RANGE NOT ESTABLISHED FOR THE PROPORTIONAL LEUKOCYTE DIFFERENTIAL. 02/07/2025 12:42 AM CDT [facility] NEUTROPHILS % 70.9 % 02/07/2025 12:50 AM CDT [facility] LYMPHOCYTES % 14.4 % 02/07/2025 12:50 AM CDT [facility] MONOCYTES % 10.8 % 02/07/2025 12:50 AM CDT [facility] EOSINOPHILS % 2.6 % 02/07/2025 12:50 AM CDT [facility] BASOPHILS % 1.0 % 02/07/2025 12:50 AM CDT [facility] IMMATURE GRANS % 0.3 % 02/08/20 12:50 AM CDT [facility] NRBC % 0.0 % 02/07/2025 12:50 AM CDT [facility] ABS. NEUTROPHILS 2.75 1.60 - 8.30 x10'3/uL 02/07/2025 12:50 AM CDT [facility] ABS. LYMPHOCYTES 0.56(L) 0.80 - 4.70 x10'3/uL 02/07/2025 12:50 AM CDT [facility] ABS. MONOCYTES 0.42 0.00 - 1.50 x10'3/uL 02/07/2025 12:50 AM CDT [facility] ABS. EOSINOPHILS 0.10 0.00 - 0.40 x10'3/uL 02/07/2025 12:50 AM CDT [facility] ABS. BASOPHILS 0.04 0.00 - 0.20 x10'3/uL 02/07/2025 12:50 AM CDT [facility] ABS. IMMATURE GRANULOCYTES 0.01 0.00 - 0.03 x10'3/uL 02/07/2025 12:50 AM CDT [facility] ABS. NUCLEATED RBC'S 0.00 0.00 - 0.01 x10'3/uL 02/07/2025 12:50 AM CDT [facility] PLT MORPH. DECREASED 02/07/2025 12:50 AM CDT [facility] RBC MORPHOLOGY 1+ 02/07/2025 12:50 AM CDT [facility] Comment: HYPOCHROMASIA 1+ ANISOCYTOSIS 02/07/2025 12:2 [address] DO LABORATORY Final Result [facility] [address] [email or web address] [address], * AMYLASE (02/07/2025 12:24 AM CDT) AMYLASE S/P/B 44 25 - 115 UNITS/L 02/07/2025 12:47 AM CDT [facility] 02/07/2025 12:2 4 AM CDT us Brayden G [address] DO LABORATORY Final Result Performing Organization Address [facility] Co de Phone Number [facility] [place] [address], [place] [phone] * (ABNORMAL) LIPASE (02/07/2025 12:24 AM CDT) Only the most recent of2 resultswithin the time period is included. LIPASE 9(L) 16 - 77 UNITS/L 02/07/2025 12:47 AM CDT [facility] 02/07/2025 12:2 [address] CDT [address] DO LABORATORY Final Result Performing Organization Address [facility] Co de Phone Number [facility] [address] [place] [phone], [place] [phone] * (ABNORMAL) OCCULT BLOOD, FECES (02/07/2025 12:11 AM CDT) OCCULT BLOOD FECAL POSITIVE(A ) NEGATIVE 02/07/2025 12:36 AM CDT [facility] Comment:3+ STOOL SPECIMEN / Unknown 02/07/2025 12:11 AM [address]T us [address] DO BODY FLUIDS AND STOOLS ORDER SELINA Final Result Performing Organization Address [facility] Co de Phone Number [facility] [address] [place] [address], [place] [phone] * US GD PARACENT W IMAGING (02/03/2025 11:59 AM CDT) Anatomical Region Laterality Modality Ultrasound, Radi ographic Imaging 02/03/2025 11:5 7 AM CDT Impressions 02/03/2025 12:00 PM CDT IMPRESSION: Uneventful ultrasound-guided paracentesis as described. Ordered By: ALYSSIA PHILLIPS Interpreted By: Anival Moody MD, 02/03/2025 11:57 AM Narrative 02/03/2025 12:00 PM [address] [place] [address] Examination: Ultrasound-guided paracentesis. Exam time: 1031 hours. Clinical history: History of BLAND, status post TIPS. New onset ascites. Diagnostic and therapeutic paracentesis. Comparison: CT of the abdomen and pelvis, 02/02/2025. Technique: Grayscale images for procedure guidance. Findings: Prior imaging was reviewed. Appropriate consent and timeout procedures were accomplished. Initial images document ascites of sufficient volume for safe paracentesis. A site for paracentesis on the left was selected and localized under ultrasound. Following sterile prep and local anesthesia with 1% Xylocaine, a small skin kortney was placed to facilitate introduction of a 5 [place] One-Step catheter into the peritoneal cavity. This was accomplished without incident. 5 L of clear serous fluid was subsequently withdrawn. A specimen was sent to the lab for processing per the physician order. The remainder was discarded. The catheter was removed intact. The skin entry site was cleaned, closed with Dermabond and dressed with a combination of gauze and Tegaderm. There were no immediate complications from the procedure. The patient tolerated the procedure well. Procedure Note Anival Moody MD - 02/03/[address] [place] [address] Examination: Ultrasound-guided paracentesis. Exam time: 1031 hours. Clinical history: History of BLAND, status post TIPS. New onset ascites.Diagnostic and therapeutic paracentesis. Comparison: CT of the abdomen and pelvis, 02/02/2025. Technique: Grayscale images for procedure guidance. Findings: Prior imaging was reviewed. Appropriate consent and timeoutprocedures were accomplished. Initial images document ascites ofsufficient volume for safe paracentesis. A site for paracentesis on theleft was selected and localized under ultrasound. Following sterile prepand local anesthesia with 1% Xylocaine, a small skin kortney was placed tofacilitate introduction of a 5 [place] One-Step catheter into theperitoneal cavity. This was accomplished without incident. 5 L of clearserous fluid was subsequently withdrawn. A specimen was sent to the labfor processing per the physician order. The remainder was discarded. Thecatheter was removed intact. The skin entry site was cleaned, closed withDermabond and dressed with a combination of gauze and Tegaderm. There wereno immediate complications from the procedure. The patient tolerated theprocedure well. IMPRESSION: Uneventful ultrasound-guided paracentesis as described. Ordered By: ALYSSIA PHILLIPS Interpreted By: Anival Moody MD, 02/03/2025 11:57 AM us Alyssia Phillips IMITATION [employer] ULTRASOUND Final Result * CULTURE, BODY FLUID W/ GRAM STAIN (02/03/2025 10:50 AM CDT) SPEC DESCRIPTION PERITONEAL FLUID 02/03/2025 11:37 AM CDT [facility] SPECIAL REQUESTS NO SPECIAL REQUEST 02/03/2025 11:37 AM CDT [facility] GRAM STAIN RESULT MODERATE NEUTROPHILS SEEN 02/03/2025 7:13 PM CDT [facility] GRAM STAIN RESULT NO ORGANISMS SEEN 02/03/2025 7:13 PM CDT [facility] CULTURE RESULT NO GROWTH 5 DAYS 02/09/2025 12:59 PM CDT [facility] [facility] PERITONEAL FLUID SPECIMEN / Unknown 02/03/2025 10:50 AM CDT 02/03/2025 6:22 PM CDT us Alyssia Phillips IMITATION MARBLE MECHANIC MICROBIOLOGY - GENERAL ORDERABL ES Final Result [facility] [address] [place] [address], [place] [phone] [facility] [address] [place] [address], [place] [phone] * CELL COUNT W/ DIFF BODY FLUID (02/03/2025 10:50 AM CDT) SOURCE (FLUID) PERITONEAL FLUID 02/03/2025 11:37 AM CDT [facility] WBC (FLUID) 120 CELLS/UL 02/03/2025 1:21 PM CDT [facility] RBC (FLUID) <2,000 CELLS/UL 02/03/2025 1:21 PM CDT [facility] SEGS (FLUID) 21 % 02/03/2025 1:12 PM CDT [facility] LYMPHS (FLUID) 76 % 02/03/2025 1:12 PM CDT [facility] MONO (FLUID) 3 % 02/03/2025 1:12 PM CDT [facility] PERITONEAL FLUID / Unknown 02/03/2025 10:50 AM CDT us Alyssia Phillips IMITATION MARBLE MECHANIC BODY FLUIDS AND STOOLS ORDERABL ES Final Result [facility] [address] [email or web address] [address], * (ABNORMAL) BASIC METABOLIC PANEL (02/03/2025 10:01 AM CDT) SODIUM S/P/B 140 136 - 145 MMOL/L 02/03/2025 10:16 AM CDT [facility] POTASSIUM S/P/B 3.9 3.5 - 5.1 MMOL/L 02/03/2025 10:16 AM CDT [facility] CHLORIDE S/P/B 104 98 - 107 MMOL/L 02/03/2025 10:16 AM CDT [facility] CO2 28.5 21.0 - 32.0 MMOL/L 02/03/2025 10:16 AM CDT [facility] GLUCOSE 148(H) 70 - 99 MG/DL 02/03/2025 10:16 AM CDT [facility] Comment: FASTING GLUCOSE 100 TO 125 MG/DL IS CONSISTENT WITH IMPAIRED FASTING GLUCOSE. FASTING GLUCOSE >125 MG/DL IS CONSISTENT WITH DIABETES. RANDOM GLUCOSE >200 MG/DL WITH HYPERGLYCEMIC SYMPTOMS IS CONSISTENT WITH DIABETES. PER ADA GUIDELINES BUN 10 6 - 24 MG/DL 02/03/2025 10:16 AM CDT [facility] CREATININE S/P/B 1.13 0.70 - 1.30 MG/DL 02/03/2025 10:16 AM CDT [facility] CALCIUM S/P/B 9.1 8.4 - 10.5 MG/DL 02/03/2025 10:16 AM CDT [facility] ANION GAP 7.5 5.0 - 15.0 MMOL/L 02/03/2025 10:16 AM CDT [facility] OSMOLALITY (CALC) 292 MOSM/KG 025 10:16 AM CDT [facility] Comment:REFERENCE RANGE NOT ESTABLISHED GFR ESTIMATE 77(L) >89 ML/MIN/1. 73 M2 02/03/2025 10:16 AM CDT [facility] GFR NOTES GFR REFERENCE S: 02/03/2025 10:16 AM CDT [facility] Comment: THE ESTIMATED GFR IS [...] ml/min/1.73 m2 G5,KIDNEY FAILURE: <15 ml/min/1.73 m2 02/03/2025 10:0 1 AM CDT us Alyssia Phillips NP LABORATORY Final Result [facility] [address] [place] [address], * LACTIC ACID (02/02/2025 10:11 PM CDT) LACTIC ACID VENOUS 1.1 0.4 - 2.0 MMOL/L 02/02/2025 10:37 PM CDT [facility] 02/02/2025 10:1 1 PM CDT Nabil Frederick DO LABORATORY Final Result [facility] [address] [place] [address], [place] [phone] * HEMOGLOBIN, GLYCOSYLATED (05/31/2024) HGB A1C 10.3 % [facility] 05/[facility]/2024 Eva Power MD LABORATORY Final Result Performing Organization Address City/[facility]/ZIP Co de Phone Number [facility] [address] [place] [address], [place] [phone] from Last 3 Months or Most Recently Relevant to Health Maintenance Insurance [address] [place] [address] MEDICAID Care Teams Ux Researcher Relationship Specialty Start Date End Date Braydon Pavon PA PCP - General PHYSICIAN MULTI CARE TECHNICIAN 03/02/19
--- OUTSIDE RECORDS SUMMARY | 2025-02-21 12:38 | XMS_ITS | Clinical Summary ---
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 Gender Identity Not on file Sexual Orientation Not on file Last Filed Vital Signs Vital Sign Reading Time Taken Comments Blood Pressure 147/78 06/30/2024 10:10 PM ELECTRONICS COMPUTER MECHANIC Pulse 89 06/30/2024 10:55 PM ELECTRONICS COMPUTER MECHANIC Temperature 36.4 C (97.5 F) 06/30/2024 5:45 PM ELECTRONICS COMPUTER MECHANIC Respiratory Rate 13 06/30/2024 10:55 PM ELECTRONICS COMPUTER MECHANIC Oxygen Saturation 96% 06/30/2024 10:55 PM ELECTRONICS COMPUTER MECHANIC Inhaled Oxygen Concentration - - Weight - [...] 01/20/2024, 05/20/2023, 10/27/2018, Additional history exists Insurance [facility] MEDICAID Care Teams Land Resource Specialist Relationship Specialty Start Date End Date Carlos Mcdonnell DO PCP - General 11/18/07
--- OUTSIDE RECORDS SUMMARY | 2025-02-21 12:39 | XMS_ITS | Clinical Summary ---
Author Organization [facility] Address [address] [facility] [place] [address] Care Team Providers Care Hide Cooking Operator Name Role Phone Braydon Pavon Primary Care Provider [phone] Source Comments [facility],non-owned Affiliates and Associated Physician Practices is amultiple site organization consisting of ambulatory clinics and hospital sitesin [place], [place], [place] and [place]. This disclosure is being madepursuant to the Care Everywhere program and may not contain all information available regarding this patient. Last updated 18.[facility] [employer] Allergies Active Allergy Reactions Criticality Noted Date [...] WC - CONFIRMED WITH [facility] [phone], Reason: Provider adjusted, Reported on 06/09/2024 blood [...] dissolve on the tongue Active HYDROcodone-ac etaminophen ([place]) 10-325 MG tablet Take 1 (one) tablet [...] Insulin Regular Human (HUMULIN R U-500 IKPEN [place]) Inject 200 Units subcutaneously 3 times daily [...] care, and heating? Not very hard 06/08/2024 [facility] [place] of Occupat ional Health - Occupational Stress [...] any time in the past 12 m [facility], were you homeless or living in a prison (including now)? No 06/08/2024 Sex and Gender Information Value Date Recorded Sex Assigned at Not on file Legal Sex Male 8:18 AM [facility] Gender Identity Not on file Sexual Orientation Not on file Last Filed Vital Signs Vital Sign Reading Time Taken Comments Blood Pressure 110/69 06/10/2024 3:45 PM [facility] Pulse 81 06/10/2024 3:45 PM [facility] Temperature 36.8 C (98.2 F) 06/10/2024 3:45 PM [facility] Respiratory Rate 19 06/10/2024 3:45 PM [facility] Oxygen Saturation 94% 06/10/2024 3:45 PM [facility] Inhaled Oxygen Concentration - - Weight 99.8 kg (220 lb) 06/08/2024 3:47 PM [facility] Height 170.2 cm (5' 7) 06/08/2024 3:47 PM [facility] Body Mass Index 34.46 06/08/2024 3:47 PM [facility] Plan of Treatment Health Maintenance Due Date [...] (CALCIUM TOTAL) AM Draw 06/10/2024 4:45 AM [facility] HEMOGLOBIN A1C Routine 06/09/2024 1:59 AM [facility] from Last 3 Months or Most Recently Relevant to Health Maintenance Results * (ABNORMAL) BASIC METABOLIC PANEL (CALCIUM TOTAL) (06/10/2024 4:45 AM [facility]) Glucose 107(H) 70 - 99 mg/dL 06/10/2024 5:25 AM [facility] Sodium 139 136 - 145 mmol/L 06/10/2024 5:25 AM [facility] Potassium 3.4(L) 3.5 - 5.1 mmol/L 06/10/2024 5:25 AM [facility] Chloride 107 98 - 107 mmol/L 06/10/2024 5:25 AM [facility] CO2 22 22 - 29 mmol/L 06/10/2024 5:25 AM [facility] Calcium 8.2(L) 8.4 - 10.4 mg/dL 06/10/2024 5:25 AM [facility] Anion Gap 10 6 - 16 mmol/L 06/10/2024 5:25 AM [facility] BUN 15 7 - 26 mg/dL 06/10/2024 5:25 AM [facility] Creatinine 0.70(L) 0.72 - 1.25 mg/dL 06/10/2024 5:25 AM [facility] eGFR by CKD-EPI >90 >=90 mL/min/1.7 3 m2 06/10/2024 5:25 AM [facility] Blood BLOOD SPECIMEN / Unknown Venipuncture / Unknown 06/10/2024 4:45 AM [facility] 06/10/2024 5:01 AM [facility] Olimpia No MD LAB - CHEMISTRY ORDERABLES Fi nal Result [facility] [address] [place] [address] * (ABNORMAL) HEMOGLOBIN A1C (06/09/2024 1:59 AM [facility]) Hemoglobin A1c 9.1(H) <5.7 % 06/09/2024 2:28 AM [facility] Estimated Average Glucose 214 mg/dL 06/09/2024 2:28 AM [facility] Blood BLOOD SPECIMEN / Unknown Venipuncture / Unknown 06/09/2024 1:59 AM [facility] 06/09/2024 2:15 AM [facility] Narrative [facility] - 06/09/2024 2:28 AM [facility] HbA1c Interpretation: Normal: < 5.7% Pre-diabetes: [...] LAB - CHEMISTRY ORDERABLES Anastasiya enciso Result [facility] [address] [place] [address] from Last 3 Months or Most Recently Relevant to Health Maintenance Insurance MEDICAID [employer] [facility] [place] Advance Directives * Full Code (Latest Code Status on File) Date Activated Date Inactivated Comments 06/08/2024 3:48 PM 06/10/2024 7:18 PM Care Teams Hide Cooking Operator Relationship Specialty Start Date End Date Braydon Pavon PA [address] [place] [address] PCP - General Physician Supervisor Wet Pour 3/12/24
--- OUTSIDE RECORDS SUMMARY | 2025-02-21 12:39 | XMS_ITS | Clinical Summary ---
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 Use to [...] 05/20/2021 Assessment & Plan (05/22/2021 3:58 PM 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 MACHINES): A initial well visit to establish care [...] unless otherwise indicated. Need follow-up arranged with automation sales manager, infection control preventionist Planning on referral to oil painter Will need to check in to the tips follow-up Labs as ordered today, I will direct the A1 c to his infection control preventionist's office. Continuing the current regimen for now. Blood pressure is controlled at this time. We may need to try to get the stress test done as well. Screen for colon cancer 03/01/2021 Overview (03/01/2021): Added automatically from request for surgery [id number] Diabetic neuropathy associat ed with type 2 diabetes mellitus 10/29/2020 Assessment & Plan (10/29/2020 4:23 PM CDT): Chronic, worsening Start, gabapentin therapy Work on better diabetic control Vitamin D deficiency 10/29/2020 Assessment & Plan (10/29/2020 4:23 PM CDT): Check labs and based on that for the plans Bacterial endocarditis 05/14/2020 Assessment & Plan (05/14/2020 11:09 AM 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 MACHINES): Unfortunately the patient's records from [facility] are not available for my review. We [...] 05/14/2020 Assessment & Plan (05/14/2020 11:11 AM 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 MACHINES): The patient's dyspnea on exertion is likely [...] - follow up in 6 weeks with DRUG INSPECTOR Chelsea Driscoll ( to discuss about insulin [...] resume home regimen and follow-up with home infection control preventionist MATHEUS pain 10/11/2017 Morbid obesity 12/09/2016 TRACY [...] Encounters Date Type Department Care Team Description 02/17/2025 Telephone [facility] [address] [place] [address] [place] [address] Sean Rodas, RN 02/17/2025 Telephone [facility] - [facility] Minimally Invasive Surgery [address], [place] [address] Lizbeth Oviedo RN 02/10/2025 Telephone [facility] [address]th [place] [address] [place] [address] Sean Rodas, RN 02/07/2025 Documentation Internal Medicine Jessica Gleason MD Transfer Notification 01/31/2025 Telephone [facility] [address] [place] [address] [place] [address] Adriane Pearce 01/30/2025 Telephone [facility] [address]th [place] [address] [place] [address] Sean Rodas, RN 01/27/2025 Orders Only [facility] Scanning, Provider 01/12/2025 1:15 PM CDT Office Visit [facility] Minimally Invasive Surgery [address] [place] [phone] Nabil Vang MD Biliary colic (Primary Dx) 01/06/2025 Orders Only [facility] Scanning, Provider 01/05/2025 Documentation [facility] [address] [place] [address] [place] [phone] Sean Rodas, BETHANY 12/26/2024 3:04 PM CDT - 12/26/2024 11:59 PM CDT Hospital Encounter [facility] Rad[facility] ([facility] [address] [place], [place] [id number] Discharge Disposition: Discharge to home or self care 12/19/2024 Telephone [facility] - [facility] Minimally Invasive Surgery [facility], [place] [phone] Rina Edmondson MD Medical Question/Miscellane ous 12/14/2024 Hospital Encounter [facility] Operating Room [address] [place] [phone] Valeriano Torres MD 12/13/2024 2:22 PM CDT - 12/14/2024 11:51 AM CDT Emergency [facility] Emergency Department [address] [place] [phone] Raffaele Mariee MD Char, Douglas M., MD Khan, Adeel Shahid, MD Cohn, Brian Gregory, MD Poirier, Robert F. 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); Biliary dyskinesia; Right upper quadrant abdominal pain; Diabetes mellitus type 2 with complications (HCC); S/P TIPS (transjugular intrahepatic portosystemic shunt); Gallstones; Thrombocytopenia; Lymphopenia Discharge Disposition: Left Against Medical Advice 12/07/2024 Telephone [facility] [place] [address] [place] [address] Adriane Pearce from Last 3 Months Immunizations Immunization Administration Dates Next Due Hep A / Hep B 09/10/2015 Hep B Vaccine 11/09/2015 Surgical History Surgery Date Site/Laterality Comments TIPS INITIAL 11/23/2015 N/A ESOPHAGEAL VARICE LIGATION COLONOSCOPY TIPS REVISION 01/10/2021 N/A US GUIDED THORACENTESIS 02/03/2025 N/A Medical History Medical History Date Comments [...] Legal Sex Male 2:52 PM 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 Gender Identity Male 10/29/2020 12:37 PM CDT [...] 05/20/2021, 05/20/2021, 10/29/2020 Hemoglobin A1C 12/07/2024 06/09/2024, 072 06/2023, 11/23/2023, Additional history exists Covid-19 Vaccine (3 - 2024-2 6 season) 2025 12/29/2020, 12/08/2020 Influenza Vaccine (#1) 2025 Lipid Panel 12/14/2025 12/14/2024, 02/0 10/2024, 05/20/2021, Additional history exists eGFR 12/14/2025 12/14/2024, 0806/2024, 06/02/2024, Additional history exists Colon Cancer Screening-Colonoscopy 12/17/20302020 Hepatitis C Screening Completed 08/23/2015 Medical Devices Implanted Type Area Supervisor Brine Device Identifier Shelf Expiration Date Model / Serial / Lot [employer] Peripheral [employer] [id number] Lifestar 14mm 60mm 80cm Stent Biliary - [id number] Implanted:Qty: 1 on 01/10/2021 at [facility] [employer] 09/15/2023 [id number] / / [id number] Procedures Procedure Name Priority Date/Time Associated Diagnosis Comments SCAN - RADIOLOGY/IMAGING 01/27/2025 SCAN - RADIOLOGY/IMAGING 01/06/2025 CT BODY OUTSIDE [...] CREATININE RATIO, URINE Routine 05/20/2021 9:36 AM 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 MACHINES Diabetic neuropathy associated with type 2 diabetes mellitus (HCC) COLONOSCOPY 12/17/2020 10:24 AM CDT SERUM HEPATITIS PANEL Routine 08/23/2015 5:23 PM CDT from Last 3 Months or Most Recently Relevant to Health Maintenance Results * SCAN - RADIOLOGY/IMAGING (01/27/2025) Anatomical Region Laterality Modality Other us Provider Scanning Edited Result - Final * SCAN - RADIOLOGY/IMAGING (01/06/2025) Anatomical Region Laterality Modality Other us Provider Scanning Edited Result - Final * CT Body Outside Reference (12/26/2024 3:04 PM CDT) Impressions [facility] - 12/26/2024 3:04 PM CDT These images are for Reference purposes only and have not been reviewed by [facility] Radiology. There will be no report generated by a [facility] Radiologist. Narrative [facility] - 12/26/2024 3:04 PM CDT EXAMINATION: Images For Reference Purposes Only Nabil Vang MD IMG CT PROCEDURES Fi nal Result Performing Organization Address City/[facility]/ZIP Co de Phone Number [facility] * Immature platelet fraction (12/14/2024 9:12 AM CDT) IPF 9.5 1.6 - 10.1 % Blood 12/14/2024 9:12 AM CDT 12/14/2024 9:28 AM CDT Nabil Balderas Jr., MD LAB BLOOD ORDERABLES F inal Result Performing Organization Address [facility] de Phone Number [facility] Department [place] [address] * eGFR (12/14/2024 9:12 AM CDT) Pathologist [facility] eGFR >90 >=60 mL/min/1. 73 m2 Comment: [...] MD LAB BLOOD ORDERABLES F inal Result [facility] [place] [address] * (ABNORMAL) Differential, auto (12/14/2024 9:12 AM CDT) Neutrophil abs 1.68 1.50 - 6.50 K/cumm Imm gran abs 0.01 0.00 - 0.10 K/cumm [facility] Lymphocyte abs 0.16(L) 0.80 - 3.30 K/cumm [facility] Monocyte abs 0.03(L) 0.20 - 0.80 K/cumm [facility] Eosinophil abs 0.00 0.00 - 0.50 K/cumm [facility] Basophil abs 0.01 0.00 - 0.10 K/cumm [facility] Neutrophil pct 88.9 % [facility] Comment: Interpretive Data Percent cell count reference ranges are not reported, since discordance with absolute values may lead to misinterpretation of CBC data. Current Interpretive Data was last revised on 2017. Imm gran pct 0.5 % [facility] Comment: Interpretive Data Percent cell count reference ranges are not reported, since discordance with absolute values may lead to misinterpretation of CBC data. Current Interpretive Data was last revised on 2017. Lymphocyte pct 8.5 % [facility] Comment: Interpretive Data Percent cell count reference ranges are not reported, since discordance with absolute values may lead to misinterpretation of CBC data. Current Interpretive Data was last revised on 2017. Monocyte pct 1.6 % [facility] Comment: Interpretive Data Percent cell count reference ranges are not reported, since discordance with absolute values may lead to misinterpretation of CBC data. Current Interpretive Data was last revised on 2017. Eosinophil pct 0.0 % [facility] Comment: Interpretive Data Percent cell count reference ranges are not reported, since discordance with absolute values may lead to misinterpretation of CBC data. Current Interpretive Data was last revised on 2017. Basophil pct 0.5 % [facility] Comment: Interpretive Data Percent cell count reference ranges are not reported, since discordance with absolute values may lead to misinterpretation of CBC data. Current Interpretive Data was last revised on 2017. Blood 12/14/2024 9:12 AM CDT 12/14/2024 9:22 AM CDT us Nabil Balderas Jr., MD LAB BLOOD ORDERABLES F inal Result [facility] [place] [address] * (ABNORMAL) CBC with auto differential (12/14/2024 9:12 AM CDT) WBC 1.84(L) 3.80 - 9.90 K/cumm Hgb 12.5(L) 13.0 - 17.5 g/dL [facility] Hct 39.1 38.9 - 50.3 % [facility] Plt 47(C) 150 - 400 K/cumm [facility] Comment:Platelet count confi rmed by additional testing. Critical platelet count threshold determined by patient location: Outpatient:<50 K/cumm , Inpatient adults:<20 K/cumm , Inpatient pediatric:<25 K/cumm, BMT service:<10 K/cumm MPV Not Measured 9.1 - 12.3 fL [facility] RBC 5.09 4.30 - 5.80 M/cumm [facility] MCV 76.8(L) 81.3 - 96.4 fL [facility] MCH 24.6(L) 27.1 - 33.3 pg [facility] MCHC 32.0(L) 32.3 - 35.7 g/dL [facility] RDW CV 15.2(H) 11.1 - 14.9 % [facility] RDW SD 41.5 35.7 - 48.1 fL [facility] NRBC abs 0.00 0.00 - 0.01 K/cumm [facility] Blood 12/14/2024 9:12 AM CDT 12/14/2024 9:22 AM CDT us Nabil Balderas Jr., MD LAB BLOOD ORDERABLES F inal Result [facility] [address] [facility] [place] [address] * (ABNORMAL) Lipid panel (12/14/2024 9:12 AM [...] revised on 2017. Triglycerides 86 <=149 mg/dL [facility] Comment: Interpretive Data Ages < or [...] revised on 2017. HDL 21(L) >=40 mg/dL [facility] Comment: Interpretive Data Ages < or [...] on 2017. LDL, calculated 64 <=129 mg/dL [facility] Comment: Interpretive Data Ages < or [...] 3. Ike Baker et al. OMAIRA Cardiol. 2019September 01;5(5):540-548. doi: 10.1001/jamacardio.2020.0013 Current Interpretive Data was last revised on 2023. Non-HDL Cholesterol 81 mg/dL [facility] Comment: Interpretive Data Ages < or [...] last revised on 2017. Chol/HDL ratio 5 [facility] Blood 12/14/2024 9:12 AM CDT 12/14/2024 9:48 AM CDT Narrative [facility] - 12/14/2024 4:15 PM CDT reflex us Nabil Balderas Jr., MD LAB BLOOD ORDERABLES F inal Result [facility] [address] [facility] [place] [address] * (ABNORMAL) Comprehensive metabolic panel (12/14/2024 9:12 AM CDT) Pathologist [facility] Sodium 136 135 - 145 mmol/L Potassium, pl 4.9 3.3 - 4.9 mmol/L [facility] Chloride 102 97 - 110 mmol/L [facility] CO2 24 22 - 32 mmol/L [facility] Anion gap 10 2 - 15 mmol/L [facility] BUN 17 6 - 25 mg/dL [facility] Creatinine 0.83 0.80 - 1.30 mg/dL [facility] Glucose 307(H) 70 - 199 mg/dL [facility] Comment: Interpretive Data Fasting glucose >/= [...] 2022. Calcium 8.6 8.5 - 10.3 mg/dL [facility] Bilirubin, total 1.3(H) 0.1 - 1.2 mg/dL [facility] Protein, pl 6.8 6.5 - 8.5 g/dL [facility] Albumin 3.3(L) 3.5 - 5.0 g/dL [facility] Alk phos 142(H) 40 - 130 Units/L [facility] ALT 10 7 - 55 Units/L [facility] AST 18 10 - 50 Units/L [facility] Blood 12/14/2024 9:12 AM CDT 12/14/2024 9:22 AM CDT us Nabil Balderas Jr., MD LAB BLOOD ORDERABLES F inal Result Performing Organization Address [facility] de Phone Number [facility] [place] [address] * (ABNORMAL) POCT glucose (12/14/2024 7:56 AM CDT) Glucose, POC 272(H) 70 - 199 mg/dL Blood 12/14/2024 7:56 AM CDT 12/14/2024 7:56 AM CDT us Nabil Balderas Jr., MD LAB POCT ORDERABLES - DEVICE Final Result Performing Organization Address [facility] de Phone Number [facility] [place] [address] * (ABNORMAL) POCT glucose (12/14/2024 2:32 AM CDT) Glucose, POC 283(H) 70 - 199 mg/dL Blood 12/14/2024 2:32 AM CDT 12/14/2024 2:32 AM CDT us Grey Amanda MD LAB POCT ORDERABLES - NBA CE Final Result Performing Organization Address [facility] de Phone Number [facility] [place] [address] * POCT glucose (12/13/2024 10:38 PM CDT) Glucose, POC 197 70 - 199 mg/dL Blood 12/13/2024 10:3 8 PM CDT 12/13/2024 10:38 PM CDT us Valeriano Torres MD LAB POCT ORDERABLES - DEVIC E Final Result [facility] [place] [address] * POCT glucose (12/13/2024 5:17 PM CDT) Glucose, POC 130 70 - 199 mg/dL Blood 12/13/2024 5:17 PM CDT 12/13/2024 5:17 PM CDT us Thai Mejia MD LAB POCT ORDERABLES - DEVICE Final Result Performing Organization Address [facility] de Phone Number [facility] Department [place] [address] * US RUQ (12/13/2024 4:00 PM CDT) [...] MD LAB BLOOD ORDERABLES Anastasiya enciso Result [facility] [place] [address] * (ABNORMAL) Differential, auto (12/13/2024 2:37 PM CDT) Neutrophil abs 3.11 1.50 - 6.50 K/cumm Imm gran abs 0.02 0.00 - 0.10 K/cumm [facility] Lymphocyte abs 0.40(L) 0.80 - 3.30 K/cumm [facility] Monocyte abs 0.36 0.20 - 0.80 K/cumm [facility] Eosinophil abs 0.09 0.00 - 0.50 K/cumm [facility] Basophil abs 0.04 0.00 - 0.10 K/cumm [facility] Neutrophil pct 77.3 % [facility] Comment: Interpretive Data Percent cell count reference ranges are not reported, since discordance with absolute values may lead to misinterpretation of CBC data. Current Interpretive Data was last revised on 2017. Imm gran pct 0.5 % [facility] Comment: Interpretive Data Percent cell count reference ranges are not reported, since discordance with absolute values may lead to misinterpretation of CBC data. Current Interpretive Data was last revised on 2017. Lymphocyte pct 10.0 % [facility] Comment: Interpretive Data Percent cell count reference ranges are not reported, since discordance with absolute values may lead to misinterpretation of CBC data. Current Interpretive Data was last revised on 2017. Monocyte pct 9.0 % [facility] Comment: Interpretive Data Percent cell count reference ranges are not reported, since discordance with absolute values may lead to misinterpretation of CBC data. Current Interpretive Data was last revised on 2017. Eosinophil pct 2.2 % [facility] Comment: Interpretive Data Percent cell count reference ranges are not reported, since discordance with absolute values may lead to misinterpretation of CBC data. Current Interpretive Data was last revised on 2017. Basophil pct 1.0 % [facility] Comment: Interpretive Data Percent cell count reference ranges are not reported, since discordance with absolute values may lead to misinterpretation of CBC data. Current Interpretive Data was last revised on 2017. Blood 12/13/2024 2:37 PM CDT 12/13/2024 2:55 PM CDT Raffaele Mariee MD LAB BLOOD ORDERABLES Anastasiya enciso Result [facility] [place] [address] * (ABNORMAL) CBC with auto differential (12/13/2024 2:37 PM CDT) Pathologist [facility] WBC 4.02 3.80 - 9.90 K/cumm Hgb 13.3 13.0 - 17.5 g/dL [facility] Hct 41.3 38.9 - 50.3 % [facility] Plt 56(L) 150 - 400 K/cumm [facility] Comment:No clot detected in sample. MPV Not Measured 9.1 - 12.3 fL [facility] RBC 5.39 4.30 - 5.80 M/cumm [facility] MCV 76.6(L) 81.3 - 96.4 fL [facility] MCH 24.7(L) 27.1 - 33.3 pg [facility] MCHC 32.2(L) 32.3 - 35.7 g/dL [facility] RDW CV 15.8(H) 11.1 - 14.9 % [facility] RDW SD 42.3 35.7 - 48.1 fL [facility] NRBC abs 0.00 0.00 - 0.01 K/cumm [facility] Blood 12/13/2024 2:37 PM CDT 12/13/2024 2:55 PM CDT Raffaele Mariee MD LAB BLOOD ORDERABLES Anastasiya l Result Performing Organization Address [facility] de Phone Number [facility] [place] [address] * aPTT (12/13/2024 2:37 PM CDT) aPTT [...] ORDERABLES Anastasiya l Result Performing Organization Address [facility] Co de Phone Number [facility] [place] [address] * (ABNORMAL) Protime-INR (12/13/2024 2:37 PM CDT) PT 14.3(H) 10.2 - 13.5 sec INR 1.27(H) 0.90 - 1.20 [facility] Comment: Interpretive data Oral anticoagulant therapeutic ranges: Venous thromboembolism prophylaxis or treatment: 2.0-3.0 CARDIOLOGY Standard range: 2.0-3.0 High-intensity range: 2.5-3.5 Refer to indication-specific guidelines for appropriate target ranges for prosthetic heart valve replacement. Current interpretive data was last revised on 2019. Blood 12/13/2024 2:37 PM CDT 12/13/2024 2:47 PM CDT Raffaele Mariee MD LAB BLOOD ORDERABLES Anastasiya l Result Performing Organization Address City/[facility] Co de Phone Number [facility] [place] [address] * Type and screen (12/13/2024 2:37 PM CDT) Pathologist [facility] Steve, indirect Negative ABO Rh A Positive [facility] Blood 12/13/2024 2:37 PM CDT 12/13/2024 2:50 PM CDT Narrative [facility] - 12/13/2024 3:47 PM CDT Has the patient had Daratumumab or Isatuximab in the past 6 months?->Unknown Raffaele Mariee MD LAB BLOOD BANK TEST ORDER SELINA Final Result Performing Organization Address [facility] de Phone Number [facility] [place] [address] * Lipase (12/13/2024 2:37 PM CDT) Pathologist [facility] Lipase 11 10 - 99 Units/L Blood 12/13/2024 2:37 PM CDT 12/13/2024 2:55 PM CDT Raffaele Mariee MD LAB BLOOD ORDERABLES Anastasiya l Result Performing Organization Address [facility] Co de Phone Number [facility] [place] [address] * (ABNORMAL) Comprehensive metabolic panel (12/13/2024 2:37 PM CDT) Sodium 139 135 - 145 mmol/L Potassium, pl 5.0(H) 3.3 - 4.9 mmol/L [facility] Comment:Hemolyzed; Potassium value may be falsely elevated by as much as 0.6-1.0 mmol/L. Suggest redraw and reanalysis. Chloride 105 97 - 110 mmol/L [facility] CO2 24 22 - 32 mmol/L [facility] Anion gap 10 2 - 15 mmol/L [facility] BUN 13 6 - 25 mg/dL [facility] Creatinine 0.84 0.80 - 1.30 mg/dL [facility] Glucose 192 70 - 199 mg/dL [facility] Comment: Interpretive Data Fasting glucose >/= [...] 2022. Calcium 8.8 8.5 - 10.3 mg/dL [facility] Bilirubin, total 1.6(H) 0.1 - 1.2 mg/dL [facility] Protein, pl 7.5 6.5 - 8.5 g/dL [facility] Albumin 3.4(L) 3.5 - 5.0 g/dL [facility] Alk phos 151(H) 40 - 130 Units/L [facility] ALT 10 7 - 55 Units/L [facility] AST 45 10 - 50 Units/L [facility] Comment:Hemolyzed; result ma y be falsely elevated Blood 12/13/2024 2:37 PM CDT 12/13/2024 2:55 PM CDT Raffaele Mariee MD LAB BLOOD ORDERABLES Anastasiya l Result Performing Organization Address City/[facility]/ZIP Co de Phone Number [facility] [place] [address] * POCT glucose (12/13/2024 2:12 PM CDT) [facility] Glucose, POC 179 70 - 199 mg/dL Blood 12/13/2024 2:12 PM CDT 12/13/2024 2:12 PM CDT Notinfile Unknown LAB POCT ORDERABLES - DEVICE F inal Result Performing Organization Address [facility] de Phone Number [facility] [place] [address] * (ABNORMAL) Hemoglobin A1c (11/23/2023 8:40 AM CDT) [facility] Hgb A1C 10.0(H) 4.0 - 5.6 % Estimated Average Glucose 240 mg/dL [facility] Comment: The ADA recommends reporting an estimated Average Glucose (eAG) with all Hemoglobin A1c results using the equation derived from a study of 507 normal and diabetic adults. Minority populations were underrepresented and children were not included. (Diabetes Care 2020; 43(S1): S66-S76). The eAG is not equivalent to a fasting glucose. Blood 11/23/2023 8:4 0 AM CDT 11/23/2023 8:56 AM CDT Stephen Buckner MD LAB BLOOD ORDERABLES Fi nal Result Performing Organization Address [facility] Co de Phone Number [facility] [place] [address] * Albumin Creatinine Ratio, Urine (05/20/2021 9:36 AM 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 MACHINES) [facility] Albumin Ur <12.0 mg/L [facility] Comment: Interpretive Data No reference range established. Current interpretive data was last revised 2018. Creatinine Ur 47.6 mg/dL [facility] Comment: Interpretive Data No reference range established. Current interpretive data was last revised 2018. Albumin Creatinine Ratio, Ur <25 1 - 29 mg/g [facility] Urine 05/20/2021 9:36 AM 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 05/20/2021 7:41 PM 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 us Simon Lundberg MD LAB URINE ORDERABLES Final Result Performing Organization Address City/State/ZIP Co tx Phone Number [address] [address] [facility] [place] [address] * COLONOSCOPY (12/17/2020 10:24 AM CDT) Anatomical Region Laterality Modality Other Narrative Procedure Note Elian Gross MD - 12/17/2020 10:24 AM CDT ENDOSCOPY LAB Patient Name: Camilo Curry Procedure Date: 12/17/2020 10:24 AM Date of : 1970 Admit Type: Outpatient Age: 50 Gender: Male Attending MD: Elian Vivar M.D. Room: [facility] ENDOSCOPY ROOM 02 Note Status: [...] the physician, the nurse, the anesthesiologist, the senior wind energy consultant and thetechnician in the pre-procedure area [...] The scope was passed under direct vision.The [id number] was introduced through the anusand advanced to the hepatic flexure. The colonoscopywas performed without difficulty. The patient tolerated the procedure well. The quality of the bowel preparation was unsatisfactory. The quality of the bowel preparation was evaluated using the BBPS([place] Bowel Preparation Scale) with scores of: RightColon [...] 10:24 AM us Elian Draper MD ENDOSCOPY ND OCEDURES Final Result * Serum Hepatitis panel (08/23/2015 5:23 PM CDT) HBV surface ag Negative NEG HISTO RICAL RESULTS HCV ab Negative NEG HISTORICAL RESULTS Comment: Interpretive Data If confirmation is required, call Laboratory Customer Service to request sample to be sent to [facility] for Hepatitis C Virus (HCV) RNA Detection and Quantitation by Real-Time Reverse Instrument Designer-PCR (RT-PCR). Current interpretive data was last revised [...] Most Recently Relevant to Health Maintenance Insurance [facility] [place] Advance Directives For more information, please contact: [phone] * Full Code (Latest Code Status on [...] 9:18 AM 12/17/2020 4:00 PM Care Teams Md Pediatric Allergist Relationship Specialty Start Date End Date Braydon Pavon PA [address] [place] [address] PCP - General 08/23/21 [place] [address] [address] [facility] [address] [place] [address] Consulting Physician Endocrinology 05/20/21 [place] [address] [address] [facility] [address] [address] Consulting Physician Internal Medicine 05/20/21
--- OUTSIDE RECORDS SUMMARY | 2025-02-21 12:39 | XMS_ITS | Encounter Summary ---
Author Organization [facility] Healthcare Address [address] [place] [address] Care Team Providers Care Wire Photo Operator Name Role Phone Nacho Rodriguez MD Unavailable [phone] Elian Gross MD Unavailable Braydon Pavon Primary Care Provider Encounter Details Date Type Department Care Team (Late st Contact Info) Description 12/14/2024 Hospital Encounter [facility] Operating Room [address] [place] [id number] Valeriano Torres MD 1 [facility] [address] [place], [place] [id number] Social History Tobacco Use Types Packs/Day Years [...] on file Legal Sex Male 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
--- OUTSIDE RECORDS SUMMARY | 2025-02-21 12:39 | XMS_ITS | Encounter Summary ---
Author Organization [facility] Address [facility] [facility] [address] Care Team Providers Care Gyn Name Role Phone Braydon Pavon Primary Care Provider [phone] Nikolay Lancaster MD Primary Care Provider [phone] Braydon Pavon Primary Care Provider [phone] Reason for Visit * Reason Onset Date Comments MEDICATION REFILL 09/08/2018 Encounter Details Date Type Department Care Team (Late st Contact Info) Description 09/08/2018 Refill [facility] [address] [facility] [place] [address] Edmond Choi MD [address] [facility] [address] [facility] [place] [address] MEDICATION REFILL Social History Tobacco Use Types Packs/Day Years Used Date Smoking Tobacco: Former Smokeless Tobacco: Never Alcohol Use Standard Drinks/Week Comments No 0 (1 standard drink = 0.6 oz pur e alcohol) Sex and Gender Information Value Date Recorded Sex Assigned at Not on file Legal Sex Male 8:18 AM RETAIL SEASONAL SPECIALIST Gender Identity Not on file Sexual Orientation Not on file documented as of this encounter Plan of Treatment Not on file documented as of this encounter Visit Diagnoses Not on filedocumented in this encounter Additional Health Concerns Infection Onset Date Last Indicated Resolved Time COVID-19 Under Investigation 06/08/2024 06/08/2024 06/08/2024 4:31 PM RETAIL SEASONAL SPECIALIST Influenza A or B Comment:OSH result 06/08/2024 06/09/2024 06/15/2024 4:[address] documented as of this encounter Care Teams Gyn Relationship Specialty Start Date End Date Braydon Pavon PA [address] [place] [address] PCP - General Physician Lacquer Shader 05/19/18 10/03/18 Nikolay Lancaster MD [address] [place] [address] PCP - General 10/04/18 07/13/23 Braydon Pavon PA [address] [place] [address] PCP - General Physician Lacquer Shader 07/14/23 documented as of this encounter
--- OUTSIDE RECORDS SUMMARY | 2025-02-21 12:39 | XMS_ITS | Encounter Summary ---
Author Organization [facility] Address [address] [place] [address] Care Team Providers Care Strap Making Machine Operator Name Role Phone None, Provider Primary Care Provider Braydon Piedra Primary Care Provider [phone] Encounter Details Date Type Department Care Team (Late st Contact Info) Description 10/09/2018 Abstract [facility] CONVERSION [address] [place] [address] , Generic Conversion, Social History Tobacco Use [...] on filedocumented in this encounter Care Teams Strap Making Machine Operator Relationship Specialty Start Date End Date None, Provider, PCP - General 02/08/19 03/01/19 Braydon Pavon PA PCP - General PHYSICIAN CASINO CAGE SUPERVISOR 03/02/19 documented as of this encounter
--- OUTSIDE RECORDS SUMMARY | 2025-02-21 12:39 | XMS_ITS | Clinical Summary ---
Author Organization [facility] Address [address] [place] [address] Phone Care Team Providers Care Poultry Slaughterer Name Role Phone Braydon Pavon Kunal NEAL Primary Care Provider [phone] Vikram Mora MD Unavailable Riddhi Bello APRN, BIG 6 DEALER Unavailable Andrea Hawkins MD Unavailable [phone] Allergies Active Allergy Reactions Criticality Noted Date [...] route. 1 Active Insulin Pen Needle (Pen [place]) 32G X 4 MM Misc Inject 3 times daily 0 Active traZODone (DESYREL) 100 MG Tablet nightly. 3 Active HYDROcodone-bella taminophen (NORCO) 7.5-325 MG Tablet Take 10 Tablets by mouth three times a week. Active ondansetron (ZOFRAN-ODT) 4 MG TABLET DISPERSIBLE Take 1 Tablet by mouth every 8 hours as needed for Nausea - 1st line. 10 Tablet 4 Active Continuous Blood Gluc Film Examiner (Dexcom G7 Film Examiner) Device Check blood glucose before each meal and at bedtime 1 Each 4 Active HYDROcodone-bella taminophen ([place]) 10-325 MG Tablet Take 1 Tablet by [...] on file Legal Sex Male 10:58 AM WINDOW TRIMMER Gender Identity Not on file Sexual [...] Visit [facility] - Neurology [facility] [address] [place] [address] Anrdea Hawkins MD [address] [place] [address] Health Maintenance Due Date Last Done Comments [...] Influenza Immunization (#1) 2025 SARS-COV-2 Immunization ( season) 2025 12/29/2020, 12/08/2020 Diabetes: Nephropathy Screening [...] Associated Diagnosis Comments CMP (COMPREHENSIVE METABOLIC PANEL) Routine 10/31/2024 11:44 AM CDT Polyneuropathy HEMOGLOBIN A1C W/ ESTIMATED GLUCOSE STAT 05/20/2023 10:44 AM WINDOW TRIMMER from Last 3 Months or Most Recently Relevant to Health Maintenance Results * (ABNORMAL) CMP (COMPREHENSIVE METABOLIC PANEL) (10/31/2024 11:44 AM CDT) SODIUM 136 136 - 145 mmol/L 10/31/2024 1:57 PM CDT [facility] POTASSIUM 4.6 3.5 - 5.1 mmol/L 10/31/2024 1:57 PM CDT [facility] CHLORIDE 102 98 - 107 mmol/L 10/31/2024 1:57 PM CDT [facility] CO2, VENOUS 25 22 - 30 mmol/L 10/31/2024 1:57 PM CDT [facility] ANION GAP 13.6 <18.0 mmol/L 10/31/2024 1:57 PM T [facility] GLUCOSE 325(H) 70 - 99 mg/dL 10/31/2024 1:57 PM T [facility] BUN 17 8 - 26 mg/dL 10/31/2024 1:57 PM [facility] CREATININE, BLOOD 1.10 0.70 - 1.30 mg/dL 10/31/2024 1:57 PM T [facility] BUN/CREATININE RATIO 15 12 - 20 ratio 10/31/2024 1:57 PM [facility] TOTAL PROTEIN 7.8 6.0 - 8.0 g/dL 10/31/2024 1:57 PM [facility] ALBUMIN 3.9 3.5 - 5.0 g/dL 10/31/2024 1:57 PM [facility] A/G RATIO 1.0 1.0 - 2.2 10/31/2024 1:57 PM [facility] CALCIUM 9.3 8.7 - 10.5 mg/dL 10/31/2024 1:57 PM [facility] T BILI 1.3(H) 0.2 - 1.2 mg/dL 10/31/2024 1:57 PM [facility] SGOT (AST) 21 <43 U/L 10/31/2024 1:57 PM [facility] SGPT (ALT) 11 <56 U/L 10/31/2024 1:57 PM [facility] ALKALINE PHOSPHATASE 96 40 - 150 U/L 10/31/2024 1:57 PM [facility] IS THE PATIENT REQUIRED TO BE FASTING? No 10/31/2024 1:57 PM [facility] GFR, ESTIMATED >60 >=60 10/31/2024 1:57 PM [facility] Comment: Creatinine Clearance is the preferred criteria for selecting drug dose adjustments in renally impaired patients. The GFR is provided as additional pertinent clinical information. GFR is reported in mL/min/1.73 sq m. Calculation based on the Chronic Kidney Disease Epidemiology Collaboration (CKD- EPI) equation refit without adjustment for race. GFR, EST. >60 >=60 025 1:57 PM CDT [facility] GFR, EST. NONAFRICAN >60 >=60 10/31/2024 1:57 PM CDT [facility] Blood Venipuncture / Unknown 10/31/2024 11:44 AM CDT 10/31/2024 12:20 PM CDT us Andrea Hawkins MD CHEMISTRY ORDERABLES Final R esult Performing Organization Address [facility] Co de Phone Number [facility] [address] [place] [address] * (ABNORMAL) Hemoglobin A1C (05/20/2023 10:44 AM WINDOW TRIMMER) HGB-A1C 11.6(H) 4.0 - 6.0 % 05/20/2023 12:30 PM WINDOW TRIMMER [facility] Est Average Glucose 286.2 mg/dL 05/20/2023 12:30 PM WINDOW TRIMMER [facility] Blood Venipuncture / Unknown 05/20/2023 10:44 AM WINDOW TRIMMER 05/20/2023 11:01 AM WINDOW TRIMMER Narrative [facility] - 05/20/2023 12:30 PM WINDOW TRIMMER HEMOGLOBIN A1C: DIABETIC PATIENTS: WELL-CONTROLLED: 6.2 - 7.0 INTERMEDIATE WELL-CONTROLLED: 7.0 - 9.0 POORLY-CONTROLLED: >9.0 us Felicitas Luz ASSISTANT FINANCE DIRECTOR, DOROTHY CHEMISTRY ORDERABLES Final Result Performing Organization Address City/[facility] Co de Phone Number [facility] [address] [place] [address] from Last 3 Months or Most Recently Relevant to Health Maintenance Insurance MEDICAID [facility] [place] TPL Care Teams Poultry Slaughterer Relationship Specialty Start Date End Date Braydon Pavon PAC [address] [place] [address] PCP - General Physician Diesel Technician 06/22/18 Vikram Mora MD [address] [address] Consulting Physician Endocrinology 05/21/23 Riddhi Bello APRN, BIG 6 DEALER [address] [place] [address] Nurse Practitioner Advanced Practice Nurse 02/10/23 Andrea Hawkins MD [address] [place] [address] Consulting Physician Neurology 10/31/24
== END 2025-02-21 10:23 | disposition home or self-care (01) ==
LOC: CHSIMG 10:26
DX: I50.9 Heart failure, unspecified (principal)
CPT/HCPCS: 71046

== ENCOUNTER 2025-04-05 08:55 | Outpatient (CLI) | payer OTHER, SELFPAY ==
--- NOTE | ~2025-04-05 | US_ITS ---
ULTRASOUND ABDOMEN LIMITED (RIGHT UPPER QUADRANT) Clinical History: LIVER CIRRHOSIS SECONDARY TO BLAND Comparison: CT abdomen pelvis 01/23/2025 Technique: Right upper quadrant sonography Findings: TIPS patent with appropriate directed directional flow Velocity mid stent 131 cm/s and 198 cm/s Velocity IVC 77 cm/s IMPRESSION: 1. Patent TIPS with appropriately directed flow. Reviewed, dictated and finalized at location R. ULATION TENDER
--- OUTSIDE RECORDS SUMMARY | 2025-04-05 09:40 | XMS_ITS | Clinical Summary ---
Author Organization [facility] Address [address] [facility] Attn: Epic Prelude ADT [place] [address] Care Team Providers Care President Financial Institution Name Role Phone KeciaCarlos ferro Mane DO Primary Care Provider Unava ilable Allergies [...] on file Legal Sex Male 6:23 AM DIRECTOR OF ADVERTISING SALES Gender Identity Not on file Sexual Orientation Not on file Last Filed Vital Signs Vital Sign Reading Time Taken Comments Blood Pressure 147/78 06/30/2024 10:10 PM DIRECTOR OF ADVERTISING SALES Pulse 89 06/30/2024 10:55 PM DIRECTOR OF ADVERTISING SALES Temperature 36.4 C (97.5 F) 06/30/2024 5:45 PM DIRECTOR OF ADVERTISING SALES Respiratory Rate 13 06/30/2024 10:55 PM DIRECTOR OF ADVERTISING SALES Oxygen Saturation 96% 06/30/2024 10:55 PM DIRECTOR OF ADVERTISING SALES Inhaled Oxygen Concentration - - Weight - [...] Insurance [facility] MEDICAID Care Teams President Financial Institution Relationship Specialty Start Date End Date Carlos Mcdonnell DO PCP - General 11/18/07
--- OUTSIDE RECORDS SUMMARY | 2025-04-05 09:40 | XMS_ITS | Clinical Summary ---
Author Organization [facility] Address [address] [place] [address] Phone Care Team Providers Care Production Crew Supervisor Name Role Phone Braydon Pavon Kunal NEAL Primary Care Provider [phone] Riddhi Bello APRN, LOADING MACHINE TOOL SETTER Unavailable Andrea Hawkins MD Unavailable [phone] Allergies Active Allergy Reactions Criticality Noted Date [...] route. 1 Active Insulin Pen Needle (Pen [place]) 32G X 4 MM Misc Inject 3 times daily 0 Active traZODone (DESYREL) 100 MG Tablet nightly. 3 Active HYDROcodone-bella taminophen (NORCO) 7.5-325 MG Tablet Take 10 Tablets by mouth three times a week. Active ondansetron (ZOFRAN-ODT) 4 MG TABLET DISPERSIBLE Take 1 Tablet by mouth every 8 hours as needed for Nausea - 1st line. 10 Tablet 4 Active Continuous Blood Gluc Show Worker (Dexcom G7 Show Worker) Device Check blood glucose before each meal and at bedtime 1 Each 4 Active HYDROcodone-bella taminophen ([place]) 10-325 MG Tablet Take 1 Tablet by [...] Years Used Date Smoking Tobacco: Former Cigarettes 0 Q uit: 2002 Smokeless Tobacco: Never Tobacco Cessation:Counseling Given: Not Answered Alcohol Use Standard Drinks/Week Comments Not Currently 0 (1 standard drink = 0.6 oz pur e alcohol) Sexually Active Control Partners Comments Yes Female Sex and Gender Information Value Date Recorded Sex Assigned at Not on file Legal Sex Male 10:58 AM SQUIRT MACHINE OPERATOR Gender Identity Not on file [...] 10/31/2024 10:11 AM CDT Plan of Treatment Health Maintenance Due Date Last Done Comments Diabetes: Eye Exam 1970 Hepatitis C Virus (HCV) Screening 1970 TdaP Immunization 1970 Pneumococcal Immunization (50+ years) (1 of 2 - PCV) 1989 Cologuard 09/06/2015 Hepatitis B Immunization (3 of 3 - 19+ 3-dose series) 03/12/2016 11/09/2015, 09/10/2015 Respiratory Syncytial Virus (RSV) Immunization (Adult) (1 - Risk 50-74 years 1-dose series) 2020 Zoster Immunization (1 of 2) 2020 Diabetes: Foot Exam 06/01/2024 06/01/2023 Diabetes: Hemoglobin A1c 12/07/2024 025, 05/31/2024, 11/23/2023, Additional history exists Influenza Immunization (#1) 2025 SARS-COV-2 Immunization ( season) 2025 12/29/2020, 12/08/2020 Diabetes: Nephropathy Screening 10/31/2025 10/31/2024, 11/13/2023, 05/29/2023, Additional history exists Immunochemical Fecal Occult Blood 02/07/2026 02/07/2025 Colonoscopy 03/24/2028 03/24/2023, 03/05, 12/17/2020, Additional history exists Colorectal Cancer Screening 03/24/2028 Human Papillomavirus (HPV) Immunization Aged Out No [...] W/ ESTIMATED GLUCOSE STAT 05/20/2023 10:44 AM SQUIRT MACHINE OPERATOR GI IMAGING - COLONOSCOPY Routine 03/24/2023 6:23 AM SQUIRT MACHINE OPERATOR from Last 3 Months or Most Recently Relevant to Health Maintenance Results * (ABNORMAL) CMP (COMPREHENSIVE METABOLIC PANEL) (10/31/2024 11:44 AM CDT) SODIUM 136 136 - 145 mmol/L 10/31/2024 1:57 PM CDT [facility] POTASSIUM 4.6 3.5 - 5.1 mmol/L 10/31/2024 1:57 PM CDT [facility] CHLORIDE 102 98 - 107 mmol/L 10/31/2024 1:57 PM CDT [facility] CO2, VENOUS 25 22 - 30 mmol/L 10/31/2024 1:57 PM CDT [facility] ANION GAP 13.6 <18.0 mmol/L 10/31/2024 1:57 PM CDT [facility] GLUCOSE 325(H) 70 - 99 mg/dL 10/31/2024 1:57 PM CDT [facility] BUN 17 8 - 26 mg/dL 10/31/2024 1:57 PM CDT [facility] CREATININE, BLOOD 1.10 0.70 - 1.30 mg/dL 10/31/2024 1:57 PM CDT [facility] BUN/CREATININE RATIO 15 12 - 20 ratio 10/31/2024 1:57 PM CDT [facility] TOTAL PROTEIN 7.8 6.0 - 8.0 g/dL 10/31/2024 1:57 PM CDT [facility] ALBUMIN 3.9 3.5 - 5.0 g/dL 10/31/2024 1:57 PM CDT [facility] A/G RATIO 1.0 1.0 - 2.2 10/31/2024 1:57 PM CDT [facility] CALCIUM 9.3 8.7 - 10.5 mg/dL 10/31/2024 1:57 PM CDT [facility] T BILI 1.3(H) 0.2 - 1.2 mg/dL 10/31/2024 1:57 PM CDT [facility] SGOT (AST) 21 <43 U/L 10/31/2024 1:57 PM T [facility] SGPT (ALT) 11 <56 U/L 10/31/2024 1:57 PM CDT [facility] ALKALINE PHOSPHATASE 96 40 - 150 U/L 10/31/2024 1:57 PM T [facility] IS THE PATIENT REQUIRED TO BE FASTING? No 10/31/2024 1:57 PM CDT [facility] GFR, ESTIMATED >60 >=60 10/31/2024 1:57 PM CDT [facility] Comment: Creatinine Clearance is the preferred criteria for selecting drug dose adjustments in renally impaired patients. The GFR is provided as additional pertinent clinical information. GFR is reported in mL/min/1.73 sq m. Calculation based on the Chronic Kidney Disease Epidemiology Collaboration (CKD- EPI) equation refit without adjustment for race. GFR, EST. >60 >=60 025 1:57 PM CDT [facility] GFR, EST. NONAFRICAN >60 >=60 10/31/2024 1:57 PM CDT [facility] Blood Venipuncture / Unknown 10/31/2024 11:44 AM CDT 10/31/2024 12:20 PM CDT us Andrea Hawkins MD CHEMISTRY ORDERABLES Final R esult Performing Organization Address City/[facility]/ZIP Co de Phone Number [facility] [address] [place] [address] * (ABNORMAL) Hemoglobin A1C (05/20/2023 10:44 AM SQUIRT MACHINE OPERATOR) HGB-A1C 11.6(H) 4.0 - 6.0 % 05/20/2023 12:30 PM SQUIRT MACHINE OPERATOR [facility] Est Average Glucose 286.2 mg/dL 05/20/2023 12:30 PM SQUIRT MACHINE OPERATOR [facility] Blood Venipuncture / Unknown 05/20/2023 10:44 AM SQUIRT MACHINE OPERATOR 05/20/2023 11:01 AM SQUIRT MACHINE OPERATOR Narrative [facility] - 05/20/2023 12:30 PM SQUIRT MACHINE OPERATOR HEMOGLOBIN A1C: DIABETIC PATIENTS: WELL-CONTROLLED: 6.2 - 7.0 INTERMEDIATE WELL-CONTROLLED: 7.0 - 9.0 POORLY-CONTROLLED: >9.0 us Felicitas Luz APRN, LOADING MACHINE TOOL SETTER CHEMISTRY ORDERABLES Final Result Performing Organization Address City/[facility] Co de Phone Number [facility] [address] [place] [address] * GI IMAGING - COLONOSCOPY (03/24/2023 6:23 AM SQUIRT MACHINE OPERATOR) us Ac Berger MD IMG DIAGNOSTIC ORDERABLES Final Result from Last 3 Months or Most Recently Relevant to Health Maintenance Insurance MEDICAID AETNA [facility] PA TPL Care Teams Production Crew Supervisor Relationship Specialty Start Date End Date Braydon Pavon PAC [address] [place] [id number] PCP - General Physician Log Yard Derrick Operator 06/22/18 Riddhi Bello APRN, LOADING MACHINE TOOL SETTER [address] [place] [address] Nurse Practitioner Advanced Practice Nurse 02/10/23 Andrea Hawkins MD [address] [place] [id number] Consulting Physician Neurology 10/31/24
--- OUTSIDE RECORDS SUMMARY | 2025-04-05 09:40 | XMS_ITS | Encounter Summary ---
Author Organization [facility] Healthcare Address [address] [place] [address] Care Team Providers Care Food Service Utility Worker Name Role Phone Braydon Pavon Primary Care Provider [phone] Nikolay Lancaster MD Unavailable Simon Lundberg MD Primary Care Provider [phone] Nacho Rodriguez MD Unavailable [phone] Elian Gross MD Unavailable Braydon Pavon Primary Care Provider [phone] Encounter Details Date Type Department Care Team (Late st Contact Info) Description 09/14/2020 Telephone [facility] [address] [place] [address] Trice Aldana, RT Social History Tobacco Use [...] on file Legal Sex Male 2:52 PM MATCH MARKER Gender Identity Male 10/29/2020 12:37 PM CDT Sexual Orientation Straight 10/29/2020 12 :37 PM CDT documented as of this encounter Plan of Treatment Not on file documented as of this encounter Visit Diagnoses Not on filedocumented in this encounter Care Teams Food Service Utility Worker Relationship Specialty Start Date End Date Braydon Pavon PA [address] [place] [address] PCP - General Family Practice 05/09/20 05/19/21 Simon Lundberg MD [address] [place] [address] PCP - General Family Medicine 05/20/21 08/22/21 Braydon Pavon PA [address] [place] [address] PCP - General 08/23/21 Nikolay Lancaster MD [address] [place] [address] 05/09/20 05/19/21 [place] [address] [address] Consulting Physician Endocrinology 05/20/21 [place] [address] [address] [address] Consulting Physician Internal Medicine 05/20/21 documented as of this encounter
--- OUTSIDE RECORDS SUMMARY | 2025-04-05 09:40 | XMS_ITS | Encounter Summary ---
Author Organization [facility] Address [facility] [place] [address] Care Team Providers Care Buttermaker Continuous Churn Name Role Phone Braydon Pavon Primary Care Provider [phone] Nikolay Lancaster MD Primary Care Provider [phone] Braydon Pavon Primary Care Provider [phone] Reason for Visit * Reason Onset Date Comments MEDICATION REFILL 09/08/2018 Encounter Details Date Type Department Care Team (Late st Contact Info) Description 09/08/2018 Refill [facility] [address] [place] [address] Edmond Choi MD [address] [facility] [address] [facility] [place] [address] MEDICATION REFILL Social History Tobacco Use Types Packs/Day Years Used Date Smoking Tobacco: Former Smokeless Tobacco: Never Alcohol Use Standard Drinks/Week Comments No 0 (1 standard drink = 0.6 oz pur e alcohol) Sex and Gender Information Value Date Recorded Sex Assigned at Not on file Legal Sex Male 8:18 AM COUNTERINTELLIGENCE ANALYST Gender Identity Not on file Sexual Orientation Not on file documented as of this encounter Plan of Treatment Not on file documented as of this encounter Visit Diagnoses Not on filedocumented in this encounter Additional Health Concerns Infection Onset Date Last Indicated Resolved Time COVID-19 Under Investigation 06/08/2024 06/08/2024 06/08/2024 4:31 PM COUNTERINTELLIGENCE ANALYST Influenza A or B Comment:OSH result 06/08/2024 06/09/2024 06/15/2024 4:[address] documented as of this encounter Care Teams Buttermaker Continuous Churn Relationship Specialty Start Date End Date Braydon Pavon PA [address] [place] [address] PCP - General Physician Roll Threader Operator 05/19/18 10/03/18 Nikolay Lancaster MD [address] [place] [address] PCP - General 10/04/18 07/13/23 Braydon Pavon PA [address] [place] [address] PCP - General Physician Roll Threader Operator 07/14/23 documented as of this encounter
--- OUTSIDE RECORDS SUMMARY | 2025-04-05 09:40 | XMS_ITS | Encounter Summary ---
Author Organization [facility] Healthcare Address [address] [place] [address] Care Team Providers Care Director Of Home Care Hospice Name Role Phone Braydon Pavon Primary Care Provider [phone] Nikolay Lancaster MD Unavailable Simon Lundberg MD Primary Care Provider [phone] Nacho Rodriguez MD Unavailable [phone] Elian Gross MD Unavailable Braydon Pavon Primary Care Provider [phone] Encounter Details Date Type Department Care Team (Late st Contact Info) Description 10/05/2020 Telephone [facility] [address] [place], [place] [id number] Trice Aldana, Social History Tobacco Use Types Packs/Day Years [...] on file Legal Sex Male 2:52 PM PLATE STACKER HAND Gender Identity Male 10/29/2020 12:37 PM CDT Sexual Orientation Straight 10/29/2020 12 :37 PM CDT documented as of this encounter Plan of Treatment Not on file documented as of this encounter Visit Diagnoses Not on filedocumented in this encounter Care Teams Director Of Home Care Hospice Relationship Specialty Start Date End Date Braydon Pavon PA [address] [place] [address] PCP - General Family Practice 05/09/20 05/19/21 Simon Lundberg MD [address] [place] [address] PCP - General Family Medicine 05/20/21 08/22/21 Braydon Pavon PA [address] [place] [address] PCP - General 08/23/21 Nikolay Lancaster MD [address] [place] [address] 05/09/20 05/19/21 [place] [address] [address] [address] Consulting Physician Endocrinology 05/20/21 [place] [address] [address] Consulting Physician Internal Medicine 05/20/21 documented as of this encounter
--- OUTSIDE RECORDS SUMMARY | 2025-04-05 09:40 | XMS_ITS | Encounter Summary ---
Author Organization [facility] Address [address] [place] [address] Phone Care Team Providers Care Healthcare Advisory Services Manager Name Role Phone Nacho Rodriguez MD Unavailable [phone] Elian Gross MD Unavailable Braydon Pavon Primary Care Provider [phone] Encounter Details Date Type Department Care Team (Late st Contact Info) Description 03/31/2025 Results Follow-Up [facility] [address] [place] [address] [place] [id number] Nilton Whatley MD [address] [facility] [address] [place] [address] Comprehensive metabolic panel, Protime-INR, CBC with auto differential, Additional followed-up results: 3 Social History Tobacco Use Types Packs/Day Years [...] on file Legal Sex Male 2:52 PM GROUND CREW CHIEF Gender Identity Male 10/29/2020 12:37 PM CDT Sexual Orientation Straight 10/29/2020 12 :37 PM CDT documented as of this encounter Plan of Treatment Not on file documented as of this encounter Visit Diagnoses Not on filedocumented in this encounter Care Teams Healthcare Advisory Services Manager Relationship Specialty Start Date End Date Braydon Pavon PA [address] [place] [address] PCP - General 08/23/21 [place] [address] [address], [place] [address] Consulting Physician Endocrinology 05/20/21 [place] [address] [address] [place] [address] Consulting Physician Internal Medicine 05/20/21 documented as of this encounter
--- OUTSIDE RECORDS SUMMARY | 2025-04-05 09:40 | XMS_ITS | Clinical Summary ---
Author Organization [facility] Address [address] [place] [address] Care Team Providers Care Assistant Cross Country Coach Name Role Phone Nacho Rodriguez MD Unavailable [phone] Elian Gross MD Unavailable Braydon Pavon Primary Care Provider [phone] Allergies Active Allergy Reactions Criticality Noted Date [...] Medications ONETOUCH ULTRA BLUE TEST STRIP strip 018 Active lactulose solution 10 gram/15mL TAKE 30MLS BY MOUTH FOUR TIMES A DAY NEEDED 016 Active BD Ultra-Fine Short Pen Needle 31 gauge x 5/16 needle Inject 1 each under the skin daily To be used with the victoza 100 each 3 021 Active ALPRAZolam (XANAX) 1 mg tablet Take 1 tablet (1 mg total) by mouth 3 (three) times a day as needed for anxiety Active Dexcom G6 Sensor device 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 Change sensor every 10 days. 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 Change transmitter every 90 days. 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 Use to check blood sugar. 1 each 022 Active pregabalin (LYRICA) 200 mg capsule Take 1 capsule (200 mg total) by mouth 2 (two) times a day Active albuterol HFA (PROVENTIL HFA,VENTOLIN HFA,PROAIR HFA) 90 mcg/actuation inhaler Inhale 2 puffs every 6 (six) hours as needed for wheezing or shortness of breath Active HYDROcodone-acet aminophen (NORCO) 10-325 mg per tablet Take 1 tablet by mouth every 6 (six) hours as needed Active LANTUS 100 unit/mL (3 mL) pen for injection INJECT 35 UNITS SUBCUTANEOUSLY IN THE MORNING AND 50 UNITS IN THE EVENING Active HumaLOG 100 unit/mL pen for injection 3 times daily (before meals). 023 Active ondansetron (ZOFRAN) 4 mg tablet Active polyethylene glycol (MIRALAX) 17 gram/dose bulk powder Take 17 g by mouth daily Active omeprazole (PriLOSEC) 40 mg capsule Take 1 capsule (40 mg total) by mouth daily 025 Active spironolactone (ALDACTONE) 25 mg tablet Take 1 tablet (25 mg total) by mouth daily Active neomycin (MYCIFRADIN) 500 mg tabletIndication s:Hepatic encephalopathy (HCC) Take 1 tablet (500 mg total) by mouth 2 (two) times a day 60 tablet 11 Active HUMULIN R U-500, CONC, KWIKPEN 500 unit/mL (3 mL) CONCENTRATED injection 018 2024 Discontinued hydroCHLOROthiaz james (HYDRODIURIL) 25 mg tablet Take 1 tablet (25 mg total) by mouth daily 2024 Discontinued carvediloL (COREG) 3.125 mg tablet Take 1 tablet (3.125 mg total) by mouth 2 (two) times a day with meals 023 2024 Discontinued hydrOXYzine (ATARAX) 25 mg tablet Take 1 tablet (25 mg total) by mouth 4 (four) times a day 024 2024 Discontinued Trulicity 0.75 mg/0.5 mL pen injector Inject 0.5 mL (0.75 mg total) under the skin once a week 024 2024 Discontinued famotidine (PEPCID) 20 mg tablet Take 1 tablet (20 mg total) by mouth 2 (two) times a day 024 2024 Discontinued traZODone (DESYREL) 100 mg tablet Take 1 tablet (100 mg total) by mouth 2 (two) times a day 023 2024 Discontinued tirzepatide (Mounjaro) 5 mg/0.5 mL pen injector injection Inject 0.5 mL (5 mg total) under the skin once a week 025 2024 Discontinued metFORMIN XR (GLUCOPHAGE XR) 500 mg 24 hr tablet 025 2024 Discontinued rifAXIMin (XIFAXAN) 550 mg tablet Take 1 tablet (550 mg total) by mouth 2 (two) times a day 2024 Discontinued(R eorder) rifAXIMin (XIFAXAN) 550 mg tabletIndication s:Hepatic Encephalopathy Take 1 tablet (550 mg total) by mouth 2 (two) times a day 180 tablet 3 025 2024 Discontinued(O ther) Active Problems Problem Noted Date Diagnosed Date Biliary dyskinesia 12/13/2024 RUQ abdominal pain 01/20/2024 Encounter for medical examination to establish c are 05/20/2021 Assessment & Plan (05/22/2021 3:58 PM TOPOGRAPHICAL DRAFTER): A initial well visit to establish care [...] unless otherwise indicated. Need follow-up arranged with sanding line operator, perforator loader Planning on referral to instructor painting Will need to check in to the tips follow-up Labs as ordered today, I will direct the Jeremi c to his perforator loader's office. Continuing the current regimen for now. Blood pressure is controlled at this time. We may need to try to get the stress test done as well. Screen for colon cancer 03/01/2021 Overview (03/01/2021): Added automatically from request for surgery [id number] Diabetic neuropathy associat ed with type 2 diabetes mellitus 10/29/2020 Assessment & Plan (10/29/2020 4:23 PM CDT): Chronic, worsening Start, gabapentin therapy Work on better diabetic control Vitamin D deficiency 10/29/2020 Assessment & Plan (10/29/2020 4:23 PM CDT): Check labs and based on that for the plans Bacterial endocarditis 05/14/2020 Assessment & Plan (05/14/2020 11:09 AM TOPOGRAPHICAL DRAFTER): Unfortunately the patient's records from [place] are not available for my review. We [...] 05/14/2020 Assessment & Plan (05/14/2020 11:11 AM TOPOGRAPHICAL DRAFTER): The patient's dyspnea on exertion is likely [...] - follow up in 6 weeks with LICENSED NUCLEAR CONTROL ROOM OPERATOR Chelsea Driscoll ( to discuss about [...] resume home regimen and follow-up with home perforator loader MATHEUS pain 10/11/2017 Morbid obesity 12/09/2016 TRACY [...] Encounters Date Type Department Care Team Description 04/03/2025 Orders Only [facility] Gastroenterology [address] [facility] 12th [place] [address] [place] [address] Sean Rodas, BETHANY Hepatic encephalopathy (HCC) (Primary Dx) 03/31/2025 Results Follow-Up [facility] Gastroenterology [address] [place] [address] [place] [address] [place] [address] Nilton Whatley MD Comprehensive metabolic panel, Protime-INR, CBC with auto differential, Additional followed-up results: 3 03/28/2025 Documentation [facility] Gastroenterology [address] [place] [address] [place] [address] [place] [address] Sean Rodas RN 03/27/2025 5:25 PM TOPOGRAPHICAL DRAFTER Lab [facility] ([facility]) [address] [place] [id number] 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; S/P TIPS (transjugular intrahepatic portosystemic shunt) 03/27/2025 2:30 PM TOPOGRAPHICAL DRAFTER Office Visit [facility] Gastroenterology [address] [place] [address] [place] [address] Nilton Whatley MD 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 (Primary Dx); S/P TIPS (transjugular intrahepatic portosystemic shunt) 03/27/2025 Telephone [facility] Gastroenterology [address] [place] [address] [place] [address] Sean Rodas, BETHANY Prior Auth (Xifaxan) 03/27/2025 Orders Only [facility] Gastroenterology [address] [place] [address] [place] [address] [place] [address] Sean Rodas, BETHANY Hepatic encephalopathy (HCC) (Primary Dx); Hepatic cirrhosis, unspecified hepatic cirrhosis type, unspecified whether ascites present (HCC) 02/17/2025 Telephone [facility] Gastroenterology [address] [place] [address] [place] [address] [place] [address] Sean Rodas, BETHANY 02/17/2025 Telephone [facility] Minimally Invasive Surgery [address] [facility] [address]th Floor, [place] [address] Lizbeth Oviedo, BETHANY 02/10/2025 Telephone [facility] Gastroenterology [address] [facility] 12th [place] [address] [place] [address] Sean Rodas, BETHANY 02/07/2025 Documentation Internal Medicine Jessica Gleason MD Transfer Notification 01/31/2025 Telephone [facility] Gastroenterology [address] [facility] 12th [place] [address] [place] [address] Adriane Pearce 01/30/2025 Telephone [facility] Gastroenterology [address] [facility] 12th [place] [address] [place] [address] Sean Rodas, BETHANY 01/27/2025 Orders Only [facility] Scanning, Provider 01/12/2025 1:15 PM CDT Office Visit [facility] Minimally Invasive Surgery [address] [place] [address] Medical Office Building [address] [place] [id number] Nabil Vang MD Biliary colic (Primary Dx) 01/06/2025 Orders Only [facility] Scanning, Provider 01/05/2025 Documentation [facility] Gastroenterology [address] [facility] 12th [place] [address] [place] [address] Sean Rodas, RN from Last 3 Months Immunizations Immunization Administration [...] O can be found media tab. dated 5/31/16 Family History Medical History Relation Name Comments [...] on file Legal Sex Male 2:52 PM TOPOGRAPHICAL DRAFTER Gender Identity Male 10/29/2020 12:37 PM CDT Sexual Orientation Straight 10/29/2020 12 :37 PM CDT Last Filed Vital Signs Vital Sign Reading Time Taken Comments Blood Pressure 114/73 03/27/2025 1:45 PM TOPOGRAPHICAL DRAFTER Pulse 74 03/27/2025 1:45 PM TOPOGRAPHICAL DRAFTER Temperature 36.3 C (97.4 F) 03/27/2025 1:45 PM TOPOGRAPHICAL DRAFTER Respiratory Rate 16 03/27/2025 1:45 PM TOPOGRAPHICAL DRAFTER Oxygen Saturation 100% 03/27/2025 1:45 PM TOPOGRAPHICAL DRAFTER Inhaled Oxygen Concentration - - Weight 89.6 kg (197 lb 9.6 oz) 03/27/2025 1:45 P M TOPOGRAPHICAL DRAFTER Height 172.7 cm (5' 8) 03/27/2025 1:45 PM TOPOGRAPHICAL DRAFTER Body Mass Index 30.04 03/27/2025 1:45 PM TOPOGRAPHICAL DRAFTER Plan of Treatment Health Maintenance Due Date [...] 02/0 10/2024, 05/20/2021, Additional history exists eGFR 03/27/2026 03/27/2025, 12/02, 12/13/2024, Additional history exists Colon Cancer Screening-Colonoscopy 12/17/20302020 Hepatitis C Screening Completed 08/23/2015 Medical Devices Implanted Type Area Revenue Cycle Analyst Device Identifier Shelf Expiration Date Model / Serial / Lot Bard Peripheral Vascular [id number] Lifestar 14mm 60mm 80cm Stent Biliary - [id number] Implanted:Qty: 1 on 01/10/[address] 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 S/P TIPS (transjugular intrahepatic portosystemic shunt) CBC WITH AUTO DIFFERENTIAL Routine 03/27/2025 3:24 PM TOPOGRAPHICAL DRAFTER 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 S/P TIPS (transjugular intrahepatic portosystemic shunt) PROTIME-INR Routine 03/27/2025 3:24 PM TOPOGRAPHICAL DRAFTER 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 S/P TIPS (transjugular intrahepatic portosystemic shunt) COMPREHENSIVE METABOLIC PANEL Routine 03/27/2025 3:24 PM TOPOGRAPHICAL DRAFTER 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 73 m2 Comment: [...] interpretive data was last reviewed 2021. Blood 03/27/2025 3:24 PM TOPOGRAPHICAL DRAFTER 03/27/2025 4:10 PM TOPOGRAPHICAL DRAFTER us Nilton Whatley MD LAB BLOOD ORDERABLES Final Result [facility] Department [place] [address] * (ABNORMAL) Differential, auto (03/27/2025 3:24 PM TOPOGRAPHICAL DRAFTER) Pathologist [facility] Neutrophil abs 2.76 1.50 - 6.50 K/cumm Imm gran abs 0.01 0.00 - 0.10 K/cumm [facility] Lymphocyte abs 0.51(L) 0.80 - 3.30 K/cumm [facility] Monocyte abs 0.43 0.20 - 0.80 K/cumm [facility] Eosinophil abs 0.12 0.00 - 0.50 K/cumm [facility] Basophil abs 0.03 0.00 - 0.10 K/cumm [facility] Neutrophil pct 71.5 % [facility] Comment: Interpretive Data Percent cell count reference ranges are not reported, since discordance with absolute values may lead to misinterpretation of CBC data. Current Interpretive Data was last revised on 2017. Imm gran pct 0.3 % [facility] Comment: Interpretive Data Percent cell count reference ranges are not reported, since discordance with absolute values may lead to misinterpretation of CBC data. Current Interpretive Data was last revised on 2017. Lymphocyte pct 13.2 % [facility] Comment: Interpretive Data Percent cell count reference ranges are not reported, since discordance with absolute values may lead to misinterpretation of CBC data. Current Interpretive Data was last revised on 2017. Monocyte pct 11.1 % [facility] Comment: Interpretive Data Percent cell count reference ranges are not reported, since discordance with absolute values may lead to misinterpretation of CBC data. Current Interpretive Data was last revised on 2017. Eosinophil pct 3.1 % [facility] Comment: Interpretive Data Percent cell count reference ranges are not reported, since discordance with absolute values may lead to misinterpretation of CBC data. Current Interpretive Data was last revised on 2017. Basophil pct 0.8 % [facility] Comment: Interpretive Data Percent cell count reference ranges are not reported, since discordance with absolute values may lead to misinterpretation of CBC data. Current Interpretive Data was last revised on 2017. Blood 03/27/2025 3:24 PM TOPOGRAPHICAL DRAFTER 03/27/2025 4:03 PM TOPOGRAPHICAL DRAFTER us Nilton Whatley MD LAB BLOOD ORDERABLES Final Result [facility] [address] [facility] Department [place] [address] * (ABNORMAL) CBC with auto differential (03/27/2025 3:24 PM TOPOGRAPHICAL DRAFTER) WBC 3.86 3.80 - 9.90 K/cumm Hgb 13.6 13.0 - 17.5 g/dL [facility] Hct 38.5(L) 38.9 - 50.3 % [facility] Plt 66(L) 150 - 400 K/cumm [facility] MPV 10.7 9.1 - 12.[address] [facility] RBC 4.89 4.30 - 5.80 M/cumm [facility] MCV 78.7(L) 81.3 - 96.[address] [facility] MCH 27.8 27.1 - 33.[address] [facility] MCHC 35.3 32.3 - 35.7 g/dL [facility] RDW CV 16.3(H) 11.1 - 14.9 % [facility] RDW SD 46.0 35.7 - 48.[address] [facility] NRBC abs 0.00 0.00 - 0.01 K/cumm [facility] Blood 03/27/2025 3:24 PM TOPOGRAPHICAL DRAFTER 03/27/2025 4:03 PM TOPOGRAPHICAL DRAFTER Nilton Whatley MD LAB BLOOD ORDERABLES Final Result Performing Organization Address City/[facility] Co de Phone Number [facility] Department [place] [address] * [id number], Tumor Marker (03/27/2025 3:24 PM TOPOGRAPHICAL DRAFTER) alpha Fetoprotein <2.0 <=8.3 ng/mL Comment: Interpretive [...] et al. J. Ped Surg 1978;13:155-156 Bruno Mathur. et al. Clin Chem Lab Med 2018;57:783-797 Jeyson Sanches et al. Clin Chem 2014;3174-9036. Current interpretive data was last revised 2022. Blood 03/27/2025 3:24 PM TOPOGRAPHICAL DRAFTER 03/27/2025 4:03 PM TOPOGRAPHICAL DRAFTER us Nilton Whatley MD LAB BLOOD ORDERABLES Final Result Performing Organization Address City/[facility]/ZIP Co de Phone Number [facility] Department [place] [address] * (ABNORMAL) Protime-INR (03/27/2025 3:24 PM TOPOGRAPHICAL DRAFTER) PT 14.7(H) 10.2 - 13.5 sec INR 1.31(H) 0.90 - 1.[address] [facility] Comment: Interpretive data Oral anticoagulant therapeutic ranges: Venous thromboembolism prophylaxis or treatment: 2.0-3.0 CARDIOLOGY Standard range: 2.0-3.0 High-intensity range: 2.5-3.5 Refer to indication-specific guidelines for appropriate target ranges for prosthetic heart valve replacement. Current interpretive data was last revised on 2019. Blood 03/27/2025 3:24 PM TOPOGRAPHICAL DRAFTER 03/27/2025 4:02 PM TOPOGRAPHICAL DRAFTER Nilton Whatley MD LAB BLOOD ORDERABLES Final Result Performing Organization Address City/State/[facility] Co de Phone Number [facility] [address] [facility] Department [place] [address] * (ABNORMAL) Comprehensive metabolic panel (03/27/2025 3:24 PM TOPOGRAPHICAL DRAFTER) Sodium 140 135 - 145 mmol/L Potassium, pl 4.2 3.3 - 4.9 mmol/L [facility] Chloride 105 97 - 110 mmol/L [facility] CO2 27 22 - 32 mmol/L [facility] Anion gap 8 2 - 15 mmol/L [facility] BUN 17 6 - 25 mg/dL [facility] Creatinine 0.91 0.80 - 1.30 mg/dL [facility] Glucose 224(H) 70 - 199 mg/dL [facility] Comment: Interpretive Data Fasting glucose [...] interpretive data was last revised 2022. Calcium 8.7 8.5 - 10.3 mg/dL [facility] Bilirubin, total 1.8(H) 0.1 - 1.2 mg/dL [facility] Protein, pl 7.0 6.5 - 8.5 g/dL [facility] Albumin 3.6 3.5 - 5.0 g/dL [facility] Alk phos 104 40 - 130 Units/L [facility] ALT 18 7 - 55 Units/L [facility] AST 24 10 - 50 Units/L [facility] Blood 03/27/2025 3:24 PM TOPOGRAPHICAL DRAFTER 03/27/2025 4:03 PM TOPOGRAPHICAL DRAFTER Nilton Whatley MD LAB BLOOD ORDERABLES Final Result [facility] Department [place] [address] * SCAN - RADIOLOGY/IMAGING (01/27/2025) Anatomical Region Laterality Modality Other us Provider Scanning Edited Result - Final * SCAN - RADIOLOGY/IMAGING (01/06/2025) Anatomical Region Laterality Modality Other us Provider Scanning Edited Result - Final * (ABNORMAL) Lipid panel (12/14/2024 9:12 AM [...] revised on 2017. Triglycerides 86 <=149 mg/dL [facility] Comment: Interpretive Data Ages < or [...] revised on 2017. HDL 21(L) >=40 mg/dL [facility] Comment: Interpretive Data Ages < or [...] on 2017. LDL, calculated 64 <=129 mg/dL [facility] Comment: Interpretive Data Ages < or [...] revised on 2023. Non-HDL Cholesterol 81 mg/dL [facility] Comment: Interpretive Data Ages < or [...] last revised on 2017. Chol/HDL ratio [address] [facility] Blood 12/14/2024 9:12 AM CDT 12/14/2024 9:48 AM CDT Narrative [facility] - 12/14/2024 4:15 PM CDT reflex us Nabil Balderas Jr., MD LAB BLOOD ORDERABLES F inal Result [facility] Department [place] [address] * (ABNORMAL) Hemoglobin A1c (11/23/2023 8:40 AM CDT) Hgb A1C 10.0(H) 4.0 - 5.6 % Estimated Average Glucose 240 mg/dL [facility] Comment: The ADA recommends reporting [...] nal Result Performing Organization Address City/[facility]/ZIP Co de Phone Number [facility] Department [place] [address] * Albumin Creatinine Ratio, Urine (05/20/2021 9:36 AM TOPOGRAPHICAL DRAFTER) Albumin Ur <12.0 mg/L [facility] Comment: Interpretive Data No reference range established. Current interpretive data was last revised 2018. Creatinine Ur 47.6 mg/dL [facility] Comment: Interpretive Data No reference range established. Current interpretive data was last revised 2018. Albumin Creatinine Ratio, Ur <25 1 - 29 mg/g [facility] Urine 05/20/2021 9:36 AM TOPOGRAPHICAL DRAFTER 05/20/2021 7:41 PM TOPOGRAPHICAL DRAFTER Simon Lundberg MD LAB URINE ORDERABLES Final Result Performing Organization Address [facility] Co de Phone Number [facility] [address] Department [place] [address] * COLONOSCOPY (12/17/2020 10:24 AM CDT) Anatomical Region Laterality Modality Other Narrative Procedure Note Elian Gross MD - 12/17/2020 10:24 AM CDT ENDOSCOPY LAB Patient Name: Camilo Curry Procedure Date: 12/17/2020 10:24 AM Date of : 1970 Admit Type: Outpatient Age: 50 Gender: Male Attending MD: Elian Vivar M.D. Room: [facility] ENDOSCOPY ROOM 02 Note Status: [...] physician, the nurse, the anesthesiologist, the senior technical recruiter and thetechnician in the pre-procedure area in [...] The scope was passed under direct vision.The [id number] was introduced through the anusand advanced to the hepatic flexure. The colonoscopywas performed without difficulty. The patient tolerated the procedure well. The quality of the bowel preparation was unsatisfactory. The quality of the bowel preparation was evaluated using the BBPS([place] Bowel Preparation Scale) with scores of: RightColon [...] 12/17/2020 10:24 AM Elian Draper MD ENDOSCOPY [place] OCEDURES Final Result * Serum Hepatitis panel (08/23/2015 5:23 PM CDT) HBV surface ag Negative NEG HISTO RICAL RESULTS HCV ab Negative NEG HISTORICAL RESULTS Comment: Interpretive Data If confirmation is required, call Laboratory Customer Service to request sample to be sent to [facility] for Hepatitis C Virus (HCV) RNA Detection and Quantitation by Real-Time Reverse Bullet Charging Machine Operator-PCR (RT-PCR). Current interpretive data was [...] Most Recently Relevant to Health Maintenance Insurance [facility] [employer] [place] [employer] [place] Advance Directives For more information, please contact: [phone] * Full Code (Latest Code Status on [...] 9:18 AM 12/17/2020 4:00 PM Care Teams Assistant Cross Country Coach Relationship Specialty Start Date End Date Braydon Pavon PA [address] [place] [address] PCP - General 08/23/21 [place] [id number] [facility] [address], [place] [address] Consulting Physician Endocrinology 05/20/21 [place] [id number] [address] [address] Consulting Physician Internal Medicine 05/20/21
--- OUTSIDE RECORDS SUMMARY | 2025-04-05 09:40 | XMS_ITS | Encounter Summary ---
Author Organization [facility] Address [address] [place] [address] Phone Care Team Providers Care Press Operator Printing Name Role Phone Nacho Rodriguez MD Unavailable [phone] Elian Gross MD Unavailable Braydon Pavon Primary Care Provider [phone] Reason for Visit * Reason Onset Date Comments Prior Auth 03/27/2025 Xifaxan Encounter Details Date Type Department Care Team (Late st Contact Info) Description 03/27/2025 Telephone [facility] [address] 12[address] [place] [address] [place] [address] Sean Rodas, BETHANY Prior Auth (Xifaxan) Social History Tobacco Use Types Packs/Day Years [...] file Legal Sex Male 2:52 PM COMMERCIAL DESIGNER Gender Identity Male 10/29/2020 12:37 PM CDT Sexual Orientation Straight 10/29/2020 12 :37 PM CDT documented as of this encounter Functional Status documented as of this encounter Miscellaneous Notes * Telephone Encounter - Antonette Lobo - 03/28/2025 7:42 AM CST [place]: [id number] PBM: [employer] #[id number] RX: Xifaxan 550MG tablets Status: Denied Reason: This request for Xifaxan tablet is denied. [facility] requiresthat drug manufacturers enter into an agreement with the Centers for Medicare and Medicaid Services(CMS) to provide rebates for their drug products that are paid for by Medicaid. Manufacturers that do not sign an agreement with [facility] are not eligible for federal Medicaid coverage of their products. The event lighting specialist of Xifaxan tablet does not participate with CMS and therefore, coverage for Xifaxantablet is denied. Denial letter in media. Due to appeal time constraints, please notify team of decision to appeal within 7 days. Please write LMN if you wish to appeal the decision. ERCIAL DESIGNER ERCIAL DESIGNER ERCIAL DESIGNER * Telephone Encounter - Sean Rodas RN - 03/27/2025 3:41 PM COMMERCIAL DESIGNER Please assist with PA for Xifaxan 550 mg BID. Prescribed for cirrhosis, HE. Patient recently hospitalized with HE symptoms. ERCIAL DESIGNER documented in this encounter Plan of Treatment Not on file documented as of this encounter Visit Diagnoses Not on filedocumented in this encounter Care Teams Press Operator Printing Relationship Specialty Start Date End Date Braydon Pavon PA [address] [place] [address] PCP - General 08/23/21 [place] [id number] [address] [facility] [address], [place] [address] Consulting Physician Endocrinology 05/20/21 [place] [id number] [address] [facility] [address] [address] Consulting Physician Internal Medicine 05/20/21 documented as of this encounter
--- OUTSIDE RECORDS SUMMARY | 2025-04-05 09:40 | XMS_ITS | Encounter Summary ---
Author Organization [facility] Healthcare Address [address] [place] [address] Care Team Providers Care Exhaust Equipment Operator Name Role Phone Nacho Rodriguez MD Unavailable [phone] Elian Gross MD Unavailable Braydon Pavon Primary Care Provider [phone] Encounter Details Date Type Department Care Team (Late st Contact Info) Description 12/14/2024 Hospital Encounter [facility] Operating Room [address] [place] [id number] Valeriano Torres MD [address] [facility] [address] [place], [place] [id number] Social History Tobacco Use Types Packs/Day Years [...] file Legal Sex Male 2:52 PM [employer] Gender Identity Male 10/29/2020 12:37 PM CDT Sexual Orientation Straight 10/29/2020 12 :37 PM CDT documented as of this encounter Functional Status * Question Answer Date of Assessment Author MAP (mmHg) 93 12/14/2024 8:03 AM CDT Eusebio Rubi RN * AUDIT-C Score Answer Date of Assessment Author 0 01/12/2025 1:06 PM MIANT Adis Mitchell CMA * Alcohol Use Question Answer Date of Assessment Author Q1: [...] on one occasion? Never 01/12/2025 1:06 PM MIANT Adis Mitchell CMA documented as of this encounter Mental Status * Question Answer Entry Date Author Level of Consciousness Alert;Awake 8:03 AM MIANT Eusebio Rubi RN Orientation Oriented X4 (person, place, time, situation) 12/14/2024 8:03 AM MIANT Eusebio Rubi RN Neuro (WDL) WDL 12/14/2024 8:03 AM MIANT Eusebio Rubi RN documented in this encounter Plan of [...] obstruction documented in this encounter Care Teams Exhaust Equipment Operator Relationship Specialty Start Date End Date Braydon Pavon PA [address] [place] [address] PCP - General 08/23/21 [place] [id number] [address] [address] Consulting Physician Endocrinology 05/20/21 [place] [id number] [address] [address] Consulting Physician Internal Medicine 05/20/21 documented as of this encounter
--- OUTSIDE RECORDS SUMMARY | 2025-04-05 09:40 | XMS_ITS | Clinical Summary ---
Author Organization [facility] Address [address] [place] [address] Care Team Providers Care Service Loss Control Consultant Name Role Phone Braydon Pavon Primary Care Provider [phone] Source Comments [facility],non-owned Affiliates and Associated Physician Practices is amultiple site organization consisting of ambulatory clinics and hospital sitesin [place], [place], [place] and [place]. This disclosure is being madepursuant to the Care Everywhere program and may not contain all information available regarding this patient. Last updated 18.[facility] [employer] Allergies Active Allergy Reactions Criticality Noted Date [...] WC - CONFIRMED WITH [facility] [phone], Reason: Provider adjusted, Reported on 06/09/2024 blood [...] dissolve on the tongue Active HYDROcodone-ac etaminophen ([place]) 10-325 MG tablet Take 1 (one) tablet [...] Insulin Regular Human (HUMULIN R U-500 IKPEN [place]) Inject 200 Units subcutaneously 3 times daily [...] care, and heating? Not very hard 06/08/2024 [facility] [place] [facility] Occupat ional Health - Occupational Stress [...] any time in the past 12 m [facility], were you homeless or living in a senior living (including now)? No 06/08/2024 Sex and Gender Information Value Date Recorded Sex Assigned at Not on file Legal Sex Male 8:18 AM TESTER OPERATOR Gender Identity Not on file Sexual Orientation Not on file Last Filed Vital Signs Vital Sign Reading Time Taken Comments Blood Pressure 110/69 06/10/2024 3:45 PM TESTER OPERATOR Pulse 81 06/10/2024 3:45 PM TESTER OPERATOR Temperature 36.8 C (98.2 F) 06/10/2024 3:45 PM TESTER OPERATOR Respiratory Rate 19 06/10/2024 3:45 PM TESTER OPERATOR Oxygen Saturation 94% 06/10/2024 3:45 PM TESTER OPERATOR Inhaled Oxygen Concentration - - Weight 99.8 kg (220 lb) 06/08/2024 3:47 PM TESTER OPERATOR Height 170.2 cm (5' 7) 06/08/2024 3:47 PM TESTER OPERATOR Body Mass Index 34.46 06/08/2024 3:47 PM TESTER OPERATOR Plan of Treatment Health Maintenance Due Date [...] 50+ (1 of 2 - PCV) 1989 DIABETES RETINOPATHY SCREENING 05/24/2018 DIABETES-FOOT EXAM WITH MONOFILAMENT 05/24/2019 05/24/2018 ZOSTER VACCINE (1 of 2) 2020 DEPRESSION SCREENING 05/04/2024 DIABETES - URINE PROTEIN SCREENING 05/04/2024 DIABETES-HGB A1C 12/07/2024 06/09/2024, , 05/24/2018 COVID-19 VACCINE (3 - 2024- season) 2025 12/29/2020, 12/08/2020 INFLUENZA VACCINE (#1) 2025 DIABETES-SERUM CREATININE 06/10/20252024, 06/09/2024, 06/08/2024, Additional history [...] (CALCIUM TOTAL) AM Draw 06/10/2024 4:45 AM TESTER OPERATOR HEMOGLOBIN A1C Routine 06/09/2024 1:59 AM TESTER OPERATOR from Last 3 Months or Most Recently Relevant to Health Maintenance Results * (ABNORMAL) BASIC METABOLIC PANEL (CALCIUM TOTAL) (06/10/2024 4:45 AM TESTER OPERATOR) Glucose 107(H) 70 - 99 mg/dL 06/10/2024 5:25 AM TESTER OPERATOR [facility] Sodium 139 136 - 145 mmol/L 06/10/2024 5:25 AM TESTER OPERATOR [facility] Potassium 3.4(L) 3.5 - 5.1 mmol/L 06/10/2024 5:25 AM TESTER OPERATOR [facility] Chloride 107 98 - 107 mmol/L 06/10/2024 5:25 AM TESTER OPERATOR [facility] CO2 22 22 - 29 mmol/L 06/10/2024 5:25 AM TESTER OPERATOR [facility] Calcium 8.2(L) 8.4 - 10.4 mg/dL 06/10/2024 5:25 AM TESTER OPERATOR [facility] Anion Gap 10 6 - 16 mmol/L 06/10/2024 5:25 AM [facility] BUN 15 7 - 26 mg/dL 06/10/2024 5:25 AM [facility] Creatinine 0.70(L) 0.72 - 1.25 mg/dL 06/10/2024 5:25 AM [facility] eGFR by CKD-EPI >90 >=90 mL/min/1.7 3 m2 06/10/2024 5:25 AM [facility] Blood BLOOD SPECIMEN / Unknown Venipuncture / Unknown 06/10/2024 4:45 AM TESTER OPERATOR 06/10/2024 5:01 AM [facility] Olimpia oN MD LAB - CHEMISTRY ORDERABLES Fi nal Result [facility] [address] [place] [address] * (ABNORMAL) HEMOGLOBIN A1C (06/09/2024 1:59 AM [facility]) Pathologist [facility] Hemoglobin A1c 9.1(H) <5.7 % 06/09/2024 2:28 AM [facility] Estimated Average Glucose 214 mg/dL 06/09/2024 2:28 AM [facility] Blood BLOOD SPECIMEN / Unknown Venipuncture / Unknown 06/09/2024 1:59 AM TESTER OPERATOR 06/09/2024 2:15 AM [facility] Narrative [facility] - 06/09/2024 2:28 AM [facility] HbA1c Interpretation: Normal: < [...] LAB - CHEMISTRY ORDERABLES Anastasiya enciso Result [facility] [address] [place] [address] from Last 3 Months or Most Recently Relevant to Health Maintenance Insurance MEDICAID [employer] [place] Advance Directives * Full Code (Latest Code Status on File) Date Activated Date Inactivated Comments 06/08/2024 3:48 PM 06/10/2024 7:18 PM Care Teams Service Loss Control Consultant Relationship Specialty Start Date End Date Braydon Pavon PA [address] [place] [address] PCP - General Physician Architecture Intern 07/14/23
== END 2025-04-05 08:56 | disposition home or self-care (01) ==
LOC: CHSIMG 09:01
PROVIDERS: Visit Provider Internal Medicine Gastroenterology
DX: K75.81 Nonalcoholic steatohepatitis (NASH) (principal); K74.69 Other cirrhosis of liver; Z95.828 Presence of other vascular implants and grafts
CPT/HCPCS: 76705